=== PATIENT | male | born 1965 | race Caucasian/White ===

== ENCOUNTER → 2017-06-15 09:58 | Outpatient (CLI) | payer OTHER, SELFPAY ==
[2017-06-15 12:04] LABS: Absolute Lymphocyte Count 1.88 X10^3/ul (0.83-4.51); Absolute Neutrophil Count 5.1 X10^3/uL (2.0-7.7); Basophil# 0.02 X10^3/uL; Basophil% 0.3 % (0-1); Color, Urine Yellow (Yellow); Eosinophil# 0.12 X10^3/uL; Eosinophils% 1.5 % (0-5); Glucose, Dipstick Normal (Normal); Hematocrit 37.4 % (40-54); Hemoglobin 12.2 g/dl (13.0-16.5); Ketone-Dipstick Negative (Negative); Leukocyte Esterase-Dipstick 25 /ul (Negative); Lymphocyte # 1.88 X10^3/ul (4.0); Mean Corp Hgb Conc 32.6 g/gl (32-36); Mean Corpuscular Hgb 27.9 pg (27.0-32.0); Mean Corpuscular Volume 85.6 fL (80-94); Mean Platelet Vol. 10.4 fl (6.2-12.0); Monocyte# 0.72 X10^3/uL; Monocyte% 9.2 % (0-10); Neutrophil # 5.08 X10^3/uL (2.7-7.7); Neutrophil % 64.7 % (47-70); Nitrite-Dipstick Negative (Negative); Occult Blood-Urine Negative /ul (Negative); Platelet Count 212 K/mm3 (150-450); Protein-Dipstick 30 mg/dl (Negative); RBC Distribution Width CV 15.4 % (11.6-14.6); RBC Distribution Width SD 47.1 fl (35.1-43.9); Red Blood Count 4.37 M/mm3 (4.6-6.2); Specific Gravity, Urine 1.015 (1.002-1.030); Urine Bilirubin Dipstick Negative (Negative); Urine Clarity Clear (Clear); Urine Urobilinogen Normal (Normal); White Blood Count 7.8 K/mm3 (4.4-11.0)
[2017-06-15 12:08] LABS: POSITIVE COUNT NO; POSITIVE DIFFERENTIAL NO; POSITIVE MORPHOLOGY NO
== END ==
PROVIDERS: Visit Provider Family Medicine
DX: M46.26 Osteomyelitis of vertebra, lumbar region (principal); Z98.890 Other specified postprocedural states; Z98.1 Arthrodesis status
CPT/HCPCS: 36415; 81002; 85025; 86140; 87077; 87086; 87088; 87186

== ENCOUNTER → 2017-06-30 11:02 | Outpatient (CLI) | payer OTHER, SELFPAY ==
[2017-06-30 11:05] LABS: Bacteria 0 SEEN /hpf (None Seen)
[2017-06-30 15:41] LABS: Absolute Lymphocyte Count 1.78 X10^3/ul (0.83-4.51); Basophil# 0.03 X10^3/uL; Basophil% 0.7 % (0-1); Eosinophil# 0.09 X10^3/uL; Hematocrit 37.1 % (40-54); Hemoglobin 12.1 g/dl (13.0-16.5); Lymphocyte # 1.78 X10^3/ul (4.0); Lymphocyte % 38.9 % (19-41); Mean Corp Hgb Conc 32.6 g/gl (32-36); Mean Corpuscular Hgb 28.2 pg (27.0-32.0); Mean Corpuscular Volume 86.5 fL (80-94); Mean Platelet Vol. 10.1 fl (6.2-12.0); Monocyte# 0.62 X10^3/uL; Monocyte% 13.6 % (0-10); Neutrophil # 2.04 X10^3/uL (2.7-7.7); Neutrophil % 44.6 % (47-70); Platelet Count 204 K/mm3 (150-450); RBC Distribution Width CV 15.8 % (11.6-14.6); RBC Distribution Width SD 49.6 fl (35.1-43.9); Red Blood Count 4.29 M/mm3 (4.6-6.2); White Blood Count 4.6 K/mm3 (4.4-11.0)
[2017-06-30 15:43] LABS: Color, Urine Yellow (Yellow); Glucose, Dipstick Normal (Normal); Ketone-Dipstick Negative (Negative); Leukocyte Esterase-Dipstick 25 /ul (Negative); Nitrite-Dipstick Negative (Negative); Occult Blood-Urine Negative /ul (Negative); Protein-Dipstick 15 mg/dl (Negative); Specific Gravity, Urine 1.015 (1.002-1.030); Urine Bilirubin Dipstick Negative (Negative); Urine Clarity Sl. Cloudy (Clear); Urine Urobilinogen Normal (Normal)
[2017-06-30 15:52] LABS: Hyaline Cast 0-5 SEEN /lpf (0-5); Mucous, Urine 2+ /hpf (<or=2+)
[2017-06-30 15:54] LABS: Squamous Epithelial Cells - UA 0-5 SEEN /hpf (0-5)
[2017-06-30 15:55] LABS: Red Blood Cells-Urine 0-5 SEEN /hpf (0-5); White Blood Cells 0-5 SEEN /hpf (0-5)
[2017-06-30 15:59] LABS: POSITIVE COUNT NO; POSITIVE DIFFERENTIAL NO; POSITIVE MORPHOLOGY NO
[2017-06-30 16:22] LABS: Erythrocyte Sedimentation Rate 38 mm/hr (0-20)
== END ==
PROVIDERS: Family Provider Family Medicine; PCP Family Medicine; Visit Provider Family Medicine
DX: M46.26 Osteomyelitis of vertebra, lumbar region (principal); R30.0 Dysuria
CPT/HCPCS: 36415; 81001; 85025; 85652; 86140; 87086

== ENCOUNTER → 2017-08-03 11:00 | Outpatient (CLI) | payer OTHER, SELFPAY ==
[2017-08-03 12:33] LABS: Absolute Lymphocyte Count 2.22 X10^3/ul (0.83-4.51); Absolute Neutrophil Count 4.1 X10^3/uL (2.0-7.7); Basophil# 0.02 X10^3/uL; Basophil% 0.3 % (0-1); Eosinophil# 0.13 X10^3/uL; Eosinophils% 1.8 % (0-5); Hemoglobin 12.2 g/dl (13.0-16.5); Lymphocyte # 2.22 X10^3/ul (4.0); Lymphocyte % 30.3 % (19-41); Mean Corpuscular Hgb 28.6 pg (27.0-32.0); Mean Corpuscular Volume 86.7 fL (80-94); Mean Platelet Vol. 10.2 fl (6.2-12.0); Monocyte# 0.81 X10^3/uL; Monocyte% 11.1 % (0-10); Neutrophil # 4.12 X10^3/uL (2.7-7.7); Neutrophil % 56.1 % (47-70); Platelet Count 225 K/mm3 (150-450); RBC Distribution Width CV 14.5 % (11.6-14.6); RBC Distribution Width SD 45.1 fl (35.1-43.9); Red Blood Count 4.27 M/mm3 (4.6-6.2); White Blood Count 7.3 K/mm3 (4.4-11.0)
[2017-08-03 12:35] LABS: Erythrocyte Sedimentation Rate 34 mm/hr (0-20)
[2017-08-03 12:37] LABS: POSITIVE COUNT NO; POSITIVE DIFFERENTIAL NO; POSITIVE MORPHOLOGY NO
== END ==
PROVIDERS: Family Provider Family Medicine; PCP Family Medicine; Visit Provider Family Medicine
DX: M46.26 Osteomyelitis of vertebra, lumbar region (principal)
CPT/HCPCS: 36415; 85025; 85652; 86140

== ENCOUNTER → 2017-08-03 11:22 | Outpatient (CLI) | payer OTHER, SELFPAY ==
--- NOTE | 2017-08-03 11:29 | US_ITS ---
STUDY: ULTRASOUND BREAST - LEFT REASON FOR EXAM: Male, 52 years old. Palpable lump left breast. Breast swelling. TECHNIQUE: Axial and longitudinal images of the LEFT breast were performed with a high resolution ultrasound transducer. COMPARISON: Comparison is made with prior mammogram done earlier today. FINDINGS: LEFT Breast: The upper inner quadrant of the left breast was examined by ultrasound. There is homogeneous fibroglandular tissue. No solid or cystic mass lesion is seen. US/Breast Limited Unilateral IMPRESSION: Unremarkable sonographic examination. Clinical correlation is recommended. ASSESSMENT CATEGORY: BIRADS Category 1: Negative. A letter regarding these results will be sent to the patient by the facility within 30 days. Electronically Signed: Meño Arrington MD at 8:15 EDT Tel [phone], Service support ,
--- NOTE | 2017-08-03 11:29 | HPBI_ITS ---
MAMMOGRAPHY - BILATERAL DIAGNOSTIC REASON FOR EXAM: Male, 52 years old. One-month history of left breast lump. PERTINENT HISTORY: Non-contributory. TECHNIQUE: Digital bilateral breast héctor (3D mammographic acquisition) in the CC and MLO projections. 2-D mediolateral oblique (MLO) and craniocaudad (CC) views of both breasts were obtained. CAD: Full Field Digital Mammography with Computer Added Detection was performed. COMPARISON: None. Baseline examination. FINDINGS: Breast Composition: The breasts are almost entirely fatty. There are no dominant masses or suspicious calcifications. No other significant abnormalities are identified. HPBI/DIAG MAMM W/CAD, BILAT IMPRESSION: Negative diagnostic mammogram. With the patient's history of a left breast lump, correlation with ultrasound is recommended. ASSESSMENT CATEGORY: BIRADS Category 0: Incomplete. Need additional imaging evaluation. A letter regarding these results will be sent to the patient by the facility within 30 days. Approximately 10% of breast cancers are not detected by mammography. A normal mammogram should not delay biopsy of a clinically suspicious abnormality. Electronically Signed: Meño Arrington MD at 13:29 EDT Tel [phone], Service support ,
== END ==
PROVIDERS: Family Provider Family Medicine; PCP Family Medicine; Visit Provider Family Medicine
DX: N63.20 Unspecified lump in the left breast, unspecified quadrant (principal)
CPT/HCPCS: 76642; 77062; 77063; 77066; G0279

== ENCOUNTER → 2017-08-24 11:28 | Outpatient (CLI) | payer OTHER, SELFPAY ==
[2017-08-24 15:51] LABS: Erythrocyte Sedimentation Rate 29 mm/hr (0-20)
== END ==
PROVIDERS: Family Provider Family Medicine; PCP Family Medicine; Visit Provider Family Medicine
DX: M46.26 Osteomyelitis of vertebra, lumbar region (principal)
CPT/HCPCS: 36415; 85652; 86140

== ENCOUNTER → 2017-10-04 10:20 | Outpatient (CLI) | payer OTHER, SELFPAY ==
[2017-10-04 12:30] LABS: Erythrocyte Sedimentation Rate 34 mm/hr (0-20)
[2017-10-04 12:31] LABS: Absolute Lymphocyte Count 2.03 X10^3/ul (0.83-4.51); Basophil# 0.02 X10^3/uL; Basophil% 0.3 % (0-1); Eosinophil# 0.13 X10^3/uL; Eosinophils% 2.3 % (0-5); Hematocrit 37.3 % (40-54); Hemoglobin 12.2 g/dl (13.0-16.5); Lymphocyte # 2.03 X10^3/ul (4.0); Lymphocyte % 35.4 % (19-41); Mean Corp Hgb Conc 32.7 g/gl (32-36); Mean Corpuscular Hgb 29.2 pg (27.0-32.0); Mean Corpuscular Volume 89.2 fL (80-94); Monocyte# 0.57 X10^3/uL; Monocyte% 9.9 % (0-10); Neutrophil # 2.96 X10^3/uL (2.7-7.7); Neutrophil % 51.6 % (47-70); Platelet Count 193 K/mm3 (150-450); RBC Distribution Width CV 12.8 % (11.6-14.6); RBC Distribution Width SD 41.1 fl (35.1-43.9); Red Blood Count 4.18 M/mm3 (4.6-6.2); White Blood Count 5.7 K/mm3 (4.4-11.0)
[2017-10-04 12:37] LABS: POSITIVE COUNT NO; POSITIVE DIFFERENTIAL NO; POSITIVE MORPHOLOGY NO
== END ==
PROVIDERS: Family Provider Family Medicine; PCP Family Medicine; Visit Provider Family Medicine
DX: M46.26 Osteomyelitis of vertebra, lumbar region (principal)
CPT/HCPCS: 36415; 85025; 85652; 86140

== ENCOUNTER → 2017-11-02 14:04 | Outpatient (CLI) | payer OTHER, SELFPAY ==
[2017-11-02 15:38] LABS: Absolute Lymphocyte Count 2.07 X10^3/ul (0.83-4.51); Absolute Neutrophil Count 3.4 X10^3/uL (2.0-7.7); Basophil# 0.02 X10^3/uL; Basophil% 0.3 % (0-1); Eosinophil# 0.18 X10^3/uL; Eosinophils% 2.8 % (0-5); Hematocrit 38.7 % (40-54); Hemoglobin 13.1 g/dl (13.0-16.5); Lymphocyte # 2.07 X10^3/ul (4.0); Lymphocyte % 32.1 % (19-41); Mean Corp Hgb Conc 33.9 g/gl (32-36); Mean Corpuscular Hgb 30.3 pg (27.0-32.0); Mean Corpuscular Volume 89.6 fL (80-94); Mean Platelet Vol. 10.1 fl (6.2-12.0); Monocyte# 0.71 X10^3/uL; Neutrophil # 3.44 X10^3/uL (2.7-7.7); Neutrophil % 53.5 % (47-70); Platelet Count 199 K/mm3 (150-450); RBC Distribution Width CV 12.8 % (11.6-14.6); RBC Distribution Width SD 41.7 fl (35.1-43.9); Red Blood Count 4.32 M/mm3 (4.6-6.2); White Blood Count 6.4 K/mm3 (4.4-11.0)
[2017-11-02 15:42] LABS: POSITIVE COUNT NO; POSITIVE DIFFERENTIAL NO; POSITIVE MORPHOLOGY NO
[2017-11-02 15:51] LABS: Erythrocyte Sedimentation Rate 33 mm/hr (0-20)
[2017-11-02 15:56] LABS: ALB/GLOB Ratio 0.8 RATIO (0.9-2.4); AST(SGOT) 31 U/L (15-37); Alanine Aminotransfer ALT/SGPT 58 U/L (16-61); Albumin, Serum 3.5 g/dL (3.2-5.0); Alkaline Phosphatase 78 U/L (45-117); Anion Gap 9 (5-15); BUN 20 mg/dL (7-18); BUN/Creat Ratio 18.9 RATIO (10-20); Calcium,Total 8.6 mg/dL (8.5-10.1); Chloride 101 mmol/L (98-107); Creatinine, Serum 1.06 mg/dL (0.70-1.30); EST Glomerular Filtration Rate 79 mL/min (>60); Est Glom Filt Rate - Afr Amer 95 mL/min (>60); Globulin 4.2 g/dL (2.2-4.2); Glucose 216 mg/dL (74-106); Potassium 4.5 mmol/L (3.5-5.1); Protein, Total 7.7 g/dL (6.4-8.2); Sodium Level 137 mmol/L (136-145); T4 Free Direct 0.96 ng/dL (0.76-1.46)
[2017-11-02 15:58] LABS: T3 Total - Triiodothyronine 0.93 ng/mL (0.6-1.81); Vitamin B12 679 pg/mL (211-911); Vitamin D,25 Hydroxy 10.9 ng/mL (29.95-100.01)
[2017-11-03 13:40] LABS: Hemoglobin A1c 7.1 % (4.2-6.3)
== END ==
LOC: LAB.FUTURE 05-05 01:15 → BFHLAB 07-05 13:13
PROVIDERS: Family Provider Family Medicine; PCP Family Medicine; Visit Provider Family Medicine
DX: M46.26 Osteomyelitis of vertebra, lumbar region (principal); R73.09 Other abnormal glucose; R53.83 Other fatigue; E55.9 Vitamin D deficiency, unspecified; E53.8 Deficiency of other specified B group vitamins
CPT/HCPCS: 36415; 80053; 82306; 82607; 83036; 84439; 84443; 84480; 85025; 85652; 86140

== ENCOUNTER → 2017-12-12 15:15 | Outpatient (CLI) | payer OTHER, SELFPAY ==
--- NOTE | 2017-12-12 14:30 | LES_PTH ---
PATIENT: MELISSA ELIAS LOC: [facility] U#:[id number] AGE/SX: 59/M ROOM: RE12/12/[address]: Dr. Wilma Thayer DO : 1965 BED: DIS: SPEC #: [id number] RECD: 12/12/17 17:54 STATUS: MIN MAK #: [id number] SUJEY: 12/12/17 14:[address]: Wilma Thayer DEPT: SURGICAL PATHOLOGY RECD BY: Shay Sapp Tissues: Skin of back, NOS Procedures: Surgery Specimen Level IV HEADER OPERATION: Excision lesion mid upper back PRE-OP DIAGNOSIS: Rule out SCC TISSUE SUBMITTED: Mid upper back MICROSCOPIC DIAGNOSIS Mid upper back lesion, excision: Benign vascular proliferation, consistent with lobular capillary hemangioma (pyogenic granuloma) with superficial ulceration and associated inflammation. Negative for malignancy. KIM:rach 12/14/17 MICROSCOPIC DESCRIPTION Slides are reviewed. GROSS DESCRIPTION Received in fixative is one container labeled with the patient's name and designated mid upper back. The specimen consists of a feliciano-white skin ellipse measuring 2 x 0.7 cm and up to 0.4 cm in thickness. There is a raised nodular lesion on the surface measuring 1 x 1 x 0.3 cm. The specimen is inked, serially sectioned and submitted entirely in one cassette. / SJ:rg 12/13/17 TC:5 [facility]: [id number]
== END ==
PROVIDERS: Family Provider Family Medicine; PCP Family Medicine; Visit Provider Family Medicine
DX: L98.9 Disorder of the skin and subcutaneous tissue, unspecified (principal)
CPT/HCPCS: 88305

== ENCOUNTER → 2017-12-22 20:20 | Outpatient (CLI) | payer OTHER, SELFPAY | PROVIDERS: Family Provider Family Medicine; PCP Family Medicine; Visit Provider Family Medicine | DX: G47.33 Obstructive sleep apnea (adult) (pediatric) (principal) | CPT/HCPCS: 95811 ==

== ENCOUNTER → 2018-03-02 14:07 | Outpatient (CLI) | payer OTHER, SELFPAY ==
[2018-03-02 15:45] LABS: CRP 7.47 mg/L (0.0-3.0)
[2018-03-02 16:21] LABS: Erythrocyte Sedimentation Rate 26 mm/hr (0-20)
== END ==
PROVIDERS: Family Provider Family Medicine; PCP Family Medicine; Visit Provider Family Medicine
DX: M54.16 Radiculopathy, lumbar region (principal); M46.26 Osteomyelitis of vertebra, lumbar region
CPT/HCPCS: 36415; 85652; 86140

== ENCOUNTER → 2018-06-30 09:22 | Outpatient (CLI) | payer OTHER, SELFPAY ==
[2018-06-30 12:18] LABS: Absolute Lymphocyte Count 3.03 X10^3/ul (0.83-4.51); Absolute Neutrophil Count 4.7 X10^3/uL (2.0-7.7); Basophil# 0.03 X10^3/uL; Basophil% 0.3 % (0-1); Eosinophil# 0.16 X10^3/uL; Eosinophils% 1.8 % (0-5); Hemoglobin 12.9 g/dl (13.0-16.5); Lymphocyte # 3.03 X10^3/ul (4.0); Lymphocyte % 34.2 % (19-41); Mean Corp Hgb Conc 32.3 g/gl (32-36); Mean Corpuscular Hgb 29.9 pg (27.0-32.0); Mean Corpuscular Volume 92.6 fL (80-94); Mean Platelet Vol. 10.2 fl (6.2-12.0); Monocyte% 10.1 % (0-10); Neutrophil # 4.69 X10^3/uL (2.7-7.7); Neutrophil % 52.9 % (47-70); Platelet Count 226 K/mm3 (150-450); RBC Distribution Width CV 13.4 % (11.6-14.6); RBC Distribution Width SD 44.1 fl (35.1-43.9); Red Blood Count 4.32 M/mm3 (4.6-6.2); White Blood Count 8.9 K/mm3 (4.4-11.0)
[2018-06-30 12:20] LABS: POSITIVE COUNT NO; POSITIVE DIFFERENTIAL NO; POSITIVE MORPHOLOGY NO
[2018-06-30 12:40] LABS: AST(SGOT) 30 U/L (15-37); Alanine Aminotransfer ALT/SGPT 45 U/L (16-61); Albumin, Serum 3.7 g/dL (3.2-5.0); Alkaline Phosphatase 60 U/L (45-117); Anion Gap 10 (5-15); BUN 27 mg/dL (7-18); BUN/Creat Ratio 23.1 RATIO (10-20); Calcium,Total 8.4 mg/dL (8.5-10.1); Chloride 103 mmol/L (98-107); Cholesterol 227 mg/dL (200); Creatinine, Serum 1.17 mg/dL (0.70-1.30); EST Glomerular Filtration Rate 70 mL/min (>60); Est Glom Filt Rate - Afr Amer 85 mL/min (>60); Globulin 3.7 g/dL (2.2-4.2); Glucose 112 mg/dL (74-106); High Density Lipoprotein 36 mg/dL; PSA,Total - Annual Screen 0.59 ng/mL (0.00-4.00); Potassium 4.2 mmol/L (3.5-5.1); Protein, Total 7.4 g/dL (6.4-8.2); Sodium Level 136 mmol/L (136-145); Triglycerides 334 mg/dL; Very Low Density Lipoprotein 67 mg/dL (5-40)
[2018-06-30 12:52] LABS: Microalbumin:Creatinine Ratio 251.6 mg/g CRE (<30 mg/g CRE)
[2018-06-30 13:00] LABS: Hemoglobin A1c 6.2 % (4.2-6.3)
== END ==
LOC: LAB.FUTURE 04-30 12:15 → BFHLAB 07-05 13:13
PROVIDERS: Family Provider Family Medicine; PCP Family Medicine; Visit Provider Family Medicine
DX: E11.9 Type 2 diabetes mellitus without complications (principal); I10 Essential (primary) hypertension; E55.9 Vitamin D deficiency, unspecified; Z12.5 Encounter for screening for malignant neoplasm of prostate
CPT/HCPCS: 36415; 80053; 80061; 82043; 82306; 82570; 83036; 84153; 85025; G0103

== ENCOUNTER → 2018-10-02 | Outpatient (CLI) | payer OTHER, SELFPAY ==
[2018-10-02 13:10] LABS: Red Blood Cells-Urine 0 SEEN /hpf (0-5)
[2018-10-02 15:31] LABS: Color, Urine Yellow (Yellow); Glucose, Dipstick Normal (Normal); Ketone-Dipstick 5 mg/dl (Negative); Leukocyte Esterase-Dipstick 25 /ul (Negative); Nitrite-Dipstick Negative (Negative); Occult Blood-Urine Negative /ul (Negative); Protein-Dipstick 30 mg/dl (Negative); Specific Gravity, Urine 1.015 (1.002-1.030); Urine Bilirubin Dipstick Negative (Negative); Urine Clarity Clear (Clear); Urine Urobilinogen Normal (Normal)
[2018-10-02 15:42] LABS: Bacteria RARE /hpf (None Seen); Mucous, Urine 1+ /hpf (<or=2+); Squamous Epithelial Cells - UA 0-5 SEEN /hpf (0-5); White Blood Cells 0-5 SEEN /hpf (0-5)
[2018-10-02 15:43] LABS: Absolute Lymphocyte Count 2.75 X10^3/ul (0.83-4.51); Basophil# 0.03 X10^3/uL; Basophil% 0.4 % (0-1); Eosinophil# 0.21 X10^3/uL; Hematocrit 41.1 % (40-54); Hemoglobin 13.5 g/dl (13.0-16.5); Lymphocyte # 2.75 X10^3/ul (4.0); Lymphocyte % 39.9 % (19-41); Mean Corp Hgb Conc 32.8 g/gl (32-36); Mean Corpuscular Volume 88.4 fL (80-94); Mean Platelet Vol. 10.1 fl (6.2-12.0); Neutrophil # 2.98 X10^3/uL (2.7-7.7); Neutrophil % 43.3 % (47-70); POSITIVE COUNT NO; POSITIVE DIFFERENTIAL NO; POSITIVE MORPHOLOGY NO; Platelet Count 220 K/mm3 (150-450); RBC Distribution Width CV 13.3 % (11.6-14.6); RBC Distribution Width SD 42.6 fl (35.1-43.9); Red Blood Count 4.65 M/mm3 (4.6-6.2); White Blood Count 6.9 K/mm3 (4.4-11.0)
[2018-10-02 15:51] LABS: CRP 9.02 mg/L (0.0-3.0)
[2018-10-02 16:26] LABS: Erythrocyte Sedimentation Rate 38 mm/hr (0-20)
[2018-10-02 17:02] LABS: Chlamydia Trachomatis by PCR Negative (Negative); Neisserai gonorrhoeae by PCR Negative (Negative); Probe Check PASS; Sample Adequacy Control PASS; Specimen Processing Control PASS
== END | disposition home or self-care (01) ==
LOC: LAB.FUTURE 13:07
PROVIDERS: Family Provider Family Medicine; PCP Family Medicine; Visit Provider Family Medicine
DX: R30.0 Dysuria (principal); Z20.2 Contact with and (suspected) exposure to infections with a predominantly sexual mode of transmission; R53.83 Other fatigue
CPT/HCPCS: 36415; 81001; 85025; 85652; 86140; 87086; 87088; 87491; 87591

== ENCOUNTER → 2018-12-27 | Outpatient (CLI) | payer OTHER, SELFPAY ==
[2018-12-27 12:24] LABS: Erythrocyte Sedimentation Rate 32 mm/hr (0-20)
[2018-12-27 12:26] LABS: Absolute Lymphocyte Count 2.17 X10^3/uL (0.83-4.51); Absolute Neutrophil Count 2.9 X10^3/uL (2.0-7.7); Basophil# 0.04 X10^3/uL; Basophil% 0.7 % (0-1); Eosinophil# 0.17 X10^3/uL; Eosinophils% 2.8 % (0-5); Hematocrit 39.6 % (40-54); Hemoglobin 13.3 g/dL (13.0-16.5); Lymphocyte # 2.17 X10^3/ul (4.0); Lymphocyte % 36.2 % (19-41); Mean Corp Hgb Conc 33.6 g/dL (32-36); Mean Corpuscular Hgb 30.5 pg (27.0-32.0); Mean Corpuscular Volume 90.8 fL (80-94); Mean Platelet Vol. 10.3 fl (6.2-12.0); Monocyte# 0.66 X10^3/uL; NRBC Flagged by Analyzer 0 % (0-5); Neutrophil # 2.92 X10^3/uL (2.7-7.7); Neutrophil % 48.8 % (47-70); Platelet Count 210 K/mm3 (150-450); RBC Distribution Width CV 12.5 % (11.6-14.6); RBC Distribution Width SD 41.3 fl (35.1-43.9); Red Blood Count 4.36 M/mm3 (4.6-6.2)
[2018-12-27 12:43] LABS: Hemoglobin A1c 6.6 % (4.2-6.3)
[2018-12-27 12:47] LABS: ALB/GLOB Ratio 0.8 RATIO (0.9-2.4); AST(SGOT) 38 U/L (15-37); Alanine Aminotransfer ALT/SGPT 52 U/L (16-61); Albumin, Serum 3.4 g/dL (3.2-5.0); Alkaline Phosphatase 74 U/L (45-117); Anion Gap 8 (5-15); BUN 17 mg/dL (7-18); BUN/Creat Ratio 15.5 RATIO (10-20); Calcium,Total 8.6 mg/dL (8.5-10.1); Chloride 104 mmol/L (98-107); Cholesterol 198 mg/dL (200); EST Glomerular Filtration Rate 75 mL/min (>60); Est Glom Filt Rate - Afr Amer 91 mL/min (>60); Globulin 4.1 g/dL (2.2-4.2); Glucose 150 mg/dL (74-106); High Density Lipoprotein 30 mg/dL; Potassium 4.5 mmol/L (3.5-5.1); Protein, Total 7.5 g/dL (6.4-8.2); Sodium Level 137 mmol/L (136-145); Triglycerides 585 mg/dL
[2018-12-27 12:54] LABS: Microalbumin:Creatinine Ratio 210.8 mg/g CRE (<30 mg/g CRE)
== END | disposition home or self-care (01) ==
LOC: LAB.FUTURE 10:24
PROVIDERS: Family Provider Family Medicine; PCP Family Medicine; Visit Provider Family Medicine
DX: E11.9 Type 2 diabetes mellitus without complications (principal); M46.26 Osteomyelitis of vertebra, lumbar region; Z51.81 Encounter for therapeutic drug level monitoring; R80.9 Proteinuria, unspecified
CPT/HCPCS: 36415; 80053; 80061; 82043; 82570; 83036; 85025; 85652; 86140

== ENCOUNTER → 2019-07-06 09:58 | Outpatient (CLI) | payer OTHER, SELFPAY ==
[2019-07-06 10:00] LABS: Bacteria 0 SEEN /hpf (None Seen); Mucous, Urine 0 SEEN /hpf (<or=2+); Red Blood Cells-Urine 0 SEEN /hpf (0-5)
[2019-07-06 12:59] LABS: Absolute Lymphocyte Count 2.83 X10^3/uL (0.83-4.51); Absolute Neutrophil Count 3.4 X10^3/uL (2.0-7.7); Basophil# 0.05 X10^3/uL; Basophil% 0.7 % (0-1); Eosinophil# 0.18 X10^3/uL; Eosinophils% 2.5 % (0-5); Hematocrit 41.8 % (40-54); Hemoglobin 13.6 g/dL (13.0-16.5); Lymphocyte # 2.83 X10^3/ul (4.0); Lymphocyte % 39.1 % (19-41); Mean Corp Hgb Conc 32.5 g/dL (32-36); Mean Corpuscular Hgb 28.5 pg (27.0-32.0); Mean Corpuscular Volume 87.6 fL (80-94); Mean Platelet Vol. 10.4 fl (6.2-12.0); Monocyte# 0.79 X10^3/uL; Monocyte% 10.9 % (0-10); NRBC Flagged by Analyzer 0 % (0-5); Neutrophil # 3.36 X10^3/uL (2.7-7.7); Neutrophil % 46.5 % (47-70); Platelet Count 222 K/mm3 (150-450); RBC Distribution Width CV 12.6 % (11.6-14.6); RBC Distribution Width SD 40.4 fl (35.1-43.9); Red Blood Count 4.77 M/mm3 (4.6-6.2); White Blood Count 7.2 K/mm3 (4.4-11.0)
[2019-07-06 13:05] LABS: Erythrocyte Sedimentation Rate 55 mm/hr (0-20)
[2019-07-06 13:16] LABS: Color, Urine Yellow (Yellow); Glucose, Dipstick Normal (Normal); Ketone-Dipstick 5 mg/dl (Negative); Leukocyte Esterase-Dipstick Negative /ul (Negative); Nitrite-Dipstick Negative (Negative); Occult Blood-Urine Negative /ul (Negative); Protein-Dipstick 100 mg/dl (Negative); Specific Gravity, Urine 1.015 (1.002-1.030); Urine Bilirubin Dipstick Negative (Negative); Urine Clarity Clear (Clear); Urine Urobilinogen Normal (Normal); Urine pH 6.5 (5.0 - 8.0)
[2019-07-06 13:18] LABS: Amphetamine Urine VISTA NEGATIVE (<1000 ng/mL); Barbiturate Urine VISTA NEGATIVE (< 200 ng/mL); Benzodiazepine Urine VISTA NEGATIVE (< 200 ng/mL); Cocaine Urine VISTA NEGATIVE (< 300 ng/mL); Ecstacy Urine VISTA NEGATIVE (< 500 ng/mL); Methadone Urine VISTA NEGATIVE (< 300 ng/mL); PCP Urine VISTA NEGATIVE (< 25 ng/mL); THC Urine VISTA NEGATIVE (< 50 ng/mL); Vista UDS pH Range 6
[2019-07-06 13:34] LABS: Squamous Epithelial Cells - UA 0-5 SEEN /hpf (0-5); White Blood Cells 0-5 SEEN /hpf (0-5)
[2019-07-06 13:51] LABS: Cholesterol 243 mg/dL (200); High Density Lipoprotein 37 mg/dL; Triglycerides 754 mg/dL
[2019-07-06 14:00] LABS: Hemoglobin A1c 7.1 % (4.2-6.3)
== END ==
LOC: LAB.FUTURE 07-11 10:05 → BFHLAB 10-26 08:48
PROVIDERS: Family Provider Family Medicine; PCP Family Medicine; Visit Provider Family Medicine
DX: E11.9 Type 2 diabetes mellitus without complications (principal); E78.5 Hyperlipidemia, unspecified; M54.16 Radiculopathy, lumbar region; N41.9 Inflammatory disease of prostate, unspecified; M79.10 Myalgia, unspecified site
CPT/HCPCS: 36415; 80061; 80307; 81001; 82570; 83036; 85025; 85652; 86140

== ENCOUNTER → 2019-09-26 13:35 | Outpatient (CLI) | payer OTHER, SELFPAY ==
[2019-09-26 15:17] LABS: Absolute Lymphocyte Count 2.51 X10^3/uL (0.83-4.51); Absolute Neutrophil Count 3.7 X10^3/uL (2.0-7.7); Basophil# 0.04 X10^3/uL; Basophil% 0.6 % (0-1); Color, Urine Yellow (Yellow); Eosinophil# 0.18 X10^3/uL; Eosinophils% 2.5 % (0-5); Glucose, Dipstick 100 mg/dl (Normal); Hematocrit 40.9 % (40-54); Hemoglobin 13.4 g/dL (13.0-16.5); Ketone-Dipstick Negative (Negative); Leukocyte Esterase-Dipstick Negative /ul (Negative); Lymphocyte # 2.51 X10^3/ul (4.0); Lymphocyte % 35.6 % (19-41); Mean Corp Hgb Conc 32.8 g/dL (32-36); Mean Corpuscular Hgb 28.9 pg (27.0-32.0); Mean Corpuscular Volume 88.3 fL (80-94); Mean Platelet Vol. 10.3 fl (6.2-12.0); Monocyte# 0.66 X10^3/uL; Monocyte% 9.3 % (0-10); NRBC Flagged by Analyzer 0 % (0-5); Neutrophil # 3.65 X10^3/uL (2.7-7.7); Neutrophil % 51.7 % (47-70); Nitrite-Dipstick Negative (Negative); Occult Blood-Urine Negative /ul (Negative); Platelet Count 223 K/mm3 (150-450); Protein-Dipstick 100 mg/dl (Negative); RBC Distribution Width SD 41.4 fl (35.1-43.9); Red Blood Count 4.63 M/mm3 (4.6-6.2); Urine Bilirubin Dipstick Negative (Negative); Urine Clarity Clear (Clear); Urine Urobilinogen Normal (Normal); Urine pH 6.5 (5.0 - 8.0); White Blood Count 7.1 K/mm3 (4.4-11.0)
[2019-09-26 15:53] LABS: ALB/GLOB Ratio 0.9 RATIO (0.9-2.4); AST(SGOT) 35 U/L (15-37); Alanine Aminotransfer ALT/SGPT 43 U/L (16-61); Albumin, Serum 3.6 g/dL (3.2-5.0); Alkaline Phosphatase 70 U/L (45-117); Anion Gap 13 (5-15); BUN 17 mg/dL (7-18); BUN/Creat Ratio 15.3 RATIO (10-20); Calcium,Total 9.2 mg/dL (8.5-10.1); Chloride 97 mmol/L (98-107); Creatinine, Serum 1.11 mg/dL (0.70-1.30); EST Glomerular Filtration Rate 74 mL/min (>60); Est Glom Filt Rate - Afr Amer 89 mL/min (>60); Globulin 4.1 g/dL (2.2-4.2); Glucose 285 mg/dL (74-106); Protein, Total 7.7 g/dL (6.4-8.2); Sodium Level 134 mmol/L (136-145)
[2019-09-26 17:43] LABS: Erythrocyte Sedimentation Rate 36 mm/hr (0-20)
== END ==
PROVIDERS: PCP Family Medicine; Visit Provider Family Medicine
DX: R10.9 Unspecified abdominal pain (principal); R30.0 Dysuria; Z86.61 Personal history of infections of the central nervous system
CPT/HCPCS: 36415; 80053; 81002; 85025; 85652; 86140; 87086

== ENCOUNTER → 2019-10-26 13:43 | Outpatient (CLI) | payer OTHER, SELFPAY ==
[2019-10-26 14:35] LABS: Bacteria 0 SEEN /hpf (None Seen); Mucous, Urine 0 SEEN /hpf (<or=2+); Red Blood Cells-Urine 0 SEEN /hpf (0-5); White Blood Cells 0 SEEN /hpf (0-5)
[2019-10-26 15:28] LABS: Erythrocyte Sedimentation Rate 31 mm/hr (0-20)
[2019-10-26 15:42] LABS: CRP 9.14 mg/L (0.0-3.0)
[2019-10-26 17:07] LABS: Color, Urine Yellow (Yellow); Glucose, Dipstick Normal (Normal); Ketone-Dipstick Negative (Negative); Leukocyte Esterase-Dipstick Negative /ul (Negative); Nitrite-Dipstick Negative (Negative); Occult Blood-Urine Negative /ul (Negative); Protein-Dipstick 30 mg/dl (Negative); Urine Bilirubin Dipstick Negative (Negative); Urine Clarity Clear (Clear); Urine Urobilinogen Normal (Normal)
[2019-10-26 18:47] LABS: Squamous Epithelial Cells - UA 0-5 SEEN /hpf (0-5)
== END ==
PROVIDERS: PCP Family Medicine; Visit Provider Family Medicine
DX: M46.26 Osteomyelitis of vertebra, lumbar region (principal); Z98.1 Arthrodesis status; R30.0 Dysuria
CPT/HCPCS: 36415; 81001; 85652; 86140; 87086; 87088

== ENCOUNTER → 2020-01-30 13:58 | Outpatient (CLI) | payer OTHER, SELFPAY ==
--- NOTE | 2020-01-30 14:02 | RAD_ITS ---
STUDY: X-RAY - PELVIS AND RIGHT HIP REASON FOR EXAM: Male, 54 years old. Right hip pain, felt a pop when he moved in his rolling desk chair at work TECHNIQUE: 4 views of the pelvis and hip. COMPARISON: None. FINDINGS: There is a non-specific bowel gas pattern. Normal visualized soft tissue structures. Prior laminectomy and fusion of the lower lumbar spine as well as the sacroiliac joints bilaterally. Normal bilateral iliac wings, sacroiliac joints and visualized sacrum. Normal bilateral superior and inferior pubic rami. Normal pubic symphysis. Normal bilateral ischial tuberosities. Widened of the right femoral head. There is osteoarthritic spur formation of the acetabular rim. is severe articular joint space narrowing of the hip. Femoral acetabular impingement should be ruled out. RAD/Hip uni 4+ views with Pelvis IMPRESSION: Marked degree of osteoarthritis involving the right hip joint. Prior laminectomy fusion of the lower lumbar spine as well as the sacroiliac joints bilaterally. Electronically Signed: Meño Arrington, at 15:08 EDT , Service support ,
== END ==
PROVIDERS: PCP Family Medicine; Referring Provider Family Medicine; Visit Provider Family Medicine
DX: M25.551 Pain in right hip (principal); R10.31 Right lower quadrant pain
CPT/HCPCS: 73503

== ENCOUNTER → 2020-06-20 14:25 | Outpatient (CLI) | payer OTHER, SELFPAY ==
[2020-03-03 11:26] VITALS: BMI 56.8
[2020-06-20 17:44] LABS: Absolute Lymphocyte Count 2.95 X10^3/uL (0.83-4.51); Absolute Neutrophil Count 4.1 X10^3/uL (2.0-7.7); Basophil# 0.06 X10^3/uL; Basophil% 0.7 % (0-1); Eosinophil# 0.18 X10^3/uL; Eosinophils% 2.1 % (0-5); Hematocrit 42.6 % (40-54); Hemoglobin 13.6 g/dL (13.0-16.5); Lymphocyte # 2.95 X10^3/ul (4.0); Lymphocyte % 35.2 % (19-41); Mean Corp Hgb Conc 31.9 g/dL (32-36); Mean Corpuscular Hgb 28.8 pg (27.0-32.0); Mean Corpuscular Volume 90.1 fL (80-94); Mean Platelet Vol. 9.6 fl (6.2-12.0); Monocyte# 1.03 X10^3/uL; Monocyte% 12.3 % (0-10); NRBC Flagged by Analyzer 0 % (0-5); Neutrophil # 4.13 X10^3/uL (2.7-7.7); Neutrophil % 49.2 % (47-70); Platelet Count 269 K/mm3 (150-450); RBC Distribution Width CV 13.1 % (11.6-14.6); RBC Distribution Width SD 42.9 fl (35.1-43.9); Red Blood Count 4.73 M/mm3 (4.6-6.2); White Blood Count 8.4 K/mm3 (4.4-11.0)
[2020-06-20 18:03] LABS: Vitamin B12 577 pg/mL (211-911)
[2020-06-20 18:10] LABS: AST(SGOT) 23 U/L (15-37); Alanine Aminotransfer ALT/SGPT 42 U/L (16-61); Albumin, Serum 3.9 g/dL (3.2-5.0); Alkaline Phosphatase 69 U/L (45-117); Anion Gap 6 (5-15); BUN 28 mg/dL (7-18); BUN/Creat Ratio 23.5 RATIO (10-20); Calcium,Total 8.9 mg/dL (8.5-10.1); Chloride 100 mmol/L (98-107); Creatinine, Serum 1.19 mg/dL (0.70-1.30); EST Glomerular Filtration Rate 68 mL/min (>60); Est Glom Filt Rate - Afr Amer 82 mL/min (>60); Free T3 2.7 pg/mL (2.18-3.98); Globulin 3.9 g/dL (2.2-4.2); Glucose 99 mg/dL (74-106); Iron 97 ug/dL (65-175); Protein, Total 7.8 g/dL (6.4-8.2); Sodium Level 134 mmol/L (136-145); T4 Free Direct 1.23 ng/dL (0.76-1.46); Thyroid Stim Hormone (TSH) 0.94 uIU/mL (0.358-3.74)
[2020-06-20 18:25] LABS: Hemoglobin A1c 5.6 % (3.8-5.6)
== END ==
PROVIDERS: PCP Family Medicine; Visit Provider Family Medicine
DX: E11.9 Type 2 diabetes mellitus without complications (principal); D50.9 Iron deficiency anemia, unspecified; E53.8 Deficiency of other specified B group vitamins; Z51.81 Encounter for therapeutic drug level monitoring; R53.83 Other fatigue
CPT/HCPCS: 36415; 80053; 82607; 83036; 83540; 84439; 84443; 84481; 85025

== ENCOUNTER → 2021-04-08 06:44 | Outpatient (CLI) | payer OTHER, SELFPAY | PROVIDERS: PCP Family Medicine; Referring Provider Family Medicine; Visit Provider Family Medicine | DX: U07.1 COVID-19 (principal) | CPT/HCPCS: 87635; U0005; U0003 ==

== ENCOUNTER 2021-04-10 12:06 | Outpatient (CLI) | payer OTHER, SELFPAY ==
[2021-04-10 12:24] VITALS: BP 134/71; PULSE 80; RESP 18; TEMP 36.7; O2SAT 94; BMI 54.6
[2021-04-10] MEDS: 0.9% Saline Lock 10 ML Syringe IV (12:29)
[2021-04-10 13:01] VITALS: BP 114/58; PULSE 77; RESP 18; TEMP 36.7; O2SAT 93
[2021-04-10 14:04] VITALS: BP 142/72; PULSE 85; RESP 16; TEMP 36.8; O2SAT 92
== END 2021-04-10 14:05 | disposition home or self-care (01) ==
LOC: MS3OUT 12:07 → MS3 12:07
PROVIDERS: PCP Family Medicine; Referring Provider Nurse Practitioner Adult Health; Visit Provider Nurse Practitioner Adult Health
DX: Z23 Encounter for immunization (principal); U07.1 COVID-19
CPT/HCPCS: J7050; M0245; Q0245; A4216

== ENCOUNTER 2021-06-04 15:49 | Outpatient (CLI) | payer OTHER, SELFPAY ==
[2021-06-04 17:58] LABS: Absolute Lymphocyte Count 2.69 X10^3/uL (0.83-4.51); Absolute Neutrophil Count 3.9 X10^3/uL (2.0-7.7); Basophil# 0.04 X10^3/uL; Basophil% 0.5 % (0-1); Eosinophil# 0.17 X10^3/uL; Eosinophils% 2.3 % (0-5); Hematocrit 36.7 % (40-54); Hemoglobin 11.8 g/dL (13.0-16.5); Lymphocyte # 2.69 X10^3/ul (0.83-4.51); Lymphocyte % 36.1 % (19-41); Mean Corp Hgb Conc 32.2 g/dL (32-36); Mean Corpuscular Hgb 27.4 pg (27.0-32.0); Mean Corpuscular Volume 85.3 fL (80-94); Mean Platelet Vol. 9.6 fl (6.2-12.0); Monocyte# 0.65 X10^3/uL; Monocyte% 8.7 % (0-10); NRBC Flagged by Analyzer 0 % (0-5); Neutrophil # 3.89 X10^3/uL (2.7-7.7); Neutrophil % 52.1 % (47-70); Platelet Count 257 K/mm3 (150-450); RBC Distribution Width CV 14.9 % (11.6-14.6); RBC Distribution Width SD 46.5 fl (35.1-43.9); White Blood Count 7.5 K/mm3 (4.4-11.0)
[2021-06-04 18:18] LABS: Vitamin D,25 Hydroxy 45.2 ng/mL
[2021-06-04 18:26] LABS: Hemoglobin A1c 9.5 % (3.8-5.6)
[2021-06-04 18:27] LABS: ALB/GLOB Ratio 0.8 RATIO (0.9-2.4); AST(SGOT) 30 U/L (15-37); Alanine Aminotransfer ALT/SGPT 36 U/L (16-61); Albumin, Serum 3.5 g/dL (3.2-5.0); Alkaline Phosphatase 93 U/L (45-117); Anion Gap 7 (5-15); BUN 17 mg/dL (7-18); Calcium,Total 9.1 mg/dL (8.5-10.1); Chloride 97 mmol/L (98-107); Creatinine, Serum 0.89 mg/dL (0.70-1.30); EST Glomerular Filtration Rate 94 mL/min (>60); Est Glom Filt Rate - Afr Amer 114 mL/min (>60); Free T3 2.7 pg/mL (2.18-3.98); Globulin 4.6 g/dL (2.2-4.2); Glucose 202 mg/dL (74-106); Potassium 3.6 mmol/L (3.5-5.1); Protein, Total 8.1 g/dL (6.4-8.2); Sodium Level 133 mmol/L (136-145); T4 Free Direct 1.17 ng/dL (0.76-1.46); Thyroid Stim Hormone (TSH) 1.29 uIU/mL (0.358-3.74)
[2021-06-05 07:32] LABS: PTHIN 49.3 pg/mL (18.4-80.1)
[2021-06-08 09:54] LABS: Ferritin 161 ng/mL (26-388); Iron 77 ug/dL (65-175)
== END 2021-06-04 23:59 | disposition short-term general hospital (02) ==
LOC: MTLAB 15:51
PROVIDERS: PCP Family Medicine; Referring Provider Family Medicine; Visit Provider Family Medicine
DX: E03.9 Hypothyroidism, unspecified (principal); E11.9 Type 2 diabetes mellitus without complications; D64.9 Anemia, unspecified; E55.9 Vitamin D deficiency, unspecified; E83.51 Hypocalcemia
CPT/HCPCS: 36415; 80053; 82306; 82728; 83036; 83540; 83970; 84439; 84443; 84481; 85025

== ENCOUNTER 2022-11-15 17:56 | Inpatient (IN) | payer OTHER, SELFPAY ==
[2022-11-15] VITALS (11 sets, daily range): BP systolic 81–131; BP diastolic 37–64; PULSE 79–85; RESP 12–26; TEMP 35.6–36.5; O2SAT 92–98; BMI 58.1; BMI 57.4
--- NOTE | 2022-11-15 18:31 | EKG12_ITS ---
Test Reason : DYSRHYTHMIA Blood Pressure : / mmHG Vent. Rate : 082 BPM Atrial Rate : 082 BPM P-R Int : 224 ms QRS Dur : 174 ms QT Int : 418 ms P-R-T Axes : 048 -64 012 degrees QTc Int : 488 ms Sinus rhythm with 1st degree A-V block Left axis deviation Right bundle branch block Abnormal ECG Confirmed by ESTEE BEVERLY, ANGIE ([id number]), dictionary editor DIANE ARIAS ([id number]) on 11/17/2022 11:32:27 AM Referred By: DONOVAN Confirmed By:VEE FONTANEZ MD
[2022-11-15 18:49] LABS: Hematocrit 33.3 % (40-54); Hemoglobin 10.1 g/dL (13.0-16.5); Mean Corp Hgb Conc 30.3 g/dL (32-36); Mean Corpuscular Hgb 26.5 pg (27.0-32.0); Mean Corpuscular Volume 87.4 fL (80-94); Mean Platelet Vol. 9.9 fl (6.2-12.0); Platelet Count 387 K/mm3 (150-450); RBC Distribution Width CV 14.7 % (11.6-14.6); RBC Distribution Width SD 47.4 fl (35.1-43.9); Red Blood Count 3.81 M/mm3 (4.6-6.2)
--- NOTE | 2022-11-15 18:49 | EDS_ITS ---
HPI History of Present Illness Chief Complaint: Cellulitis [facility] Medical History Cellulitis H/o back surgery HTN (hypertension) BATOOL treated with BiPAP Type 2 diabetes mellitus Home Medications B-complex with vitamin C 1 tab PO DAILY 03/03/20 [History Last Taken Unknown] ascorbate calcium (vitamin C) 500 mg tablet 500 mg PO DAILY 03/03/20 [History Last Taken Unknown] calcium carbonate 500 mg calcium (1,250 mg) tablet (Calcium 500) 500 mg PO DAILY 03/03/20 [History Last Taken Unknown] cholecalciferol (vitamin D3) 50 mcg (2,000 unit) capsule 50 mcg PO DAILY 03/03/20 [History Last Taken Unknown] diclofenac sodium 50 mg tablet,delayed release 50 mg PO BID 03/03/20 [History Last Taken Unknown] fluticasone propionate 50 mcg/actuation nasal spray,suspension (Flonase Allergy Relief) 1 spray intranasal DAILY 03/03/20 [History Last Taken Unknown] levocetirizine 5 mg tablet (24HR Allergy Relief) 5 mg PO DAILY 03/03/20 [History Last Taken Unknown] olmesartan 40 mg-hydrochlorothiazide 25 mg tablet 1 ea PO DAILY 03/03/20 [History Last Taken Unknown] oxycodone-acetaminophen 7.5 mg-325 mg tablet 1 ea PO Q4H PRN Pain 03/03/20 [History Last Taken Unknown] propranolol 10 mg tablet 10 mg PO DAILY 03/03/20 [History Last Taken Unknown] tizanidine 4 mg tablet 1 ea PO TID PRN Spasms 03/03/20 [History Last Taken Unknown] zinc 50 mg tablet 50 mg PO DAILY 03/03/20 [History Last Taken Unknown] Allergy/AdvReac Type Severity Reaction Status Date / Time No Known Allergies Allergy Verified 11/15/22 18:01 Family History Mother Hypertension Hypotension Diabetes Arthritis Father Hypertension Hypotension Heart disease Status post double vessel coronary artery bypass angina Arthritis Grandfather Prostate cancer Grandmother Uterine cancer Surgical History H/O sinus surgery Social History household members: other details: parents current occupational status: employed and retired Smoking Status: Former smoker alcohol intake: never substance use type: does not use do you feel safe at home: Yes EXAM Physical Exam Const Vital Signs: 11/15/22 17:57 11/15/22 18:14 11/15/22 20:01 Temperature 97.7 F L 97.3 F L Temperature Source Oral Temporal Pulse Rate 80 79 84 Respiratory Rate 16 26 H 20 H Blood Pressure 95/46 L 101/44 L 111/42 L Blood Pressure Mean 62 63 65 Pulse Ox 94 95 95 Oxygen Delivery Method Room Air Nasal Cannula Oxygen Flow Rate (L/min) 3 MDM MDM MDM Narrative Medical decision making narrative: HISTORY OF PRESENT ILLNESS: 57-year-old male here for bilateral redness some occasional pain in the setting of prior outpatient treatment for cellulitis. States he is unsure of the antibiotic he was on. He notes since then he has been more weak, fatigued. States he had bilateral leg pain and redness. Denies any focal numbness or weakness. Denies any chest pain. He does endorse shortness of breath. Denies any cough. REVIEW OF SYSTEMS: Pertinent positives: Redness Pertinent negatives: Syncope, focal numbness or weakness. PHYSICAL EXAM: Nursing triage notes reviewed, Vital signs reviewed Constitutional: please see mdm HENT: MMM Eyes: Pupils equal round and reactive to light, Extraocular muscles intact Neck: No stridor, no JVD, full neck ROM Lungs: Clear to auscultation, No wheezing or rales. No increased work of breathing, no conversational dyspnea, no accessory muscle use, no nasal flaring. No respiratory distress noted Heart: Regular rate and rhythm, No murmurs, No rubs and No gallops, 2+ distal pulses (radial, femoral, posterior tibial) in all extremities Abdomen: Soft, there is no tenderness, rigidity, rebound or guarding, no obvious peritoneal signs, no palpable pulsatile abdominal masses, no auscultated ab dominal bruit : No CVAT Extremities: No edema Neuro: No focal neurological deficits, cranial nerves II through XII intact, 5/5 strength in all extremities. Intact sensation to light touch in all extremities, 2+ reflexes bilateral patella tendons. Normal gait. No ataxia. Skin: Confluent erythema noted to both lower extremities from proximal to talus up to the gastrocnemius. No crepitus, no bullae MEDICAL DECISION MAKING: Chief Complaint: Leg redness External records reviewed: No recent ED visits or hospitalizations Factors affecting care: Type 2 diabetes, obesity Social determinants of health: none History obtained from others: The patient's Consults: Internal medicine ALL IMAGES (IF OBTAINED) HAVE BEEN PERSONALLY REVIEWED AND INTERPRETED BY MYSELF. CBC with marked leukocytosis suggestive of systemic inflammation, mild anemia, no thrombocytopenia, VBG without significant CO2 retention, no evidence of metabolic acidosis, BMP with hyponatremia, hyperkalemia, no anion gap to suggest endorgan hypoperfusion, there is acute renal failure with a creatinine of 5 Lactate elevated concern for endorgan hypoperfusion Troponin is negative, no evidence of myocardial ischemia BNP within normal limits suggestive of no heart failure MDM Narrative: 57-year-old male here with concern for failed outpatient treatment of cellulitis. He notes bilateral leg redness. Exam with bilateral leg redness but no bullae, crepitus or signs of necrotizing fasciitis. I considered the following differential diagnosis: Bilateral cellulitis, necrotizing fasciitis There is no clinical evidence to suggest necrotizing fasciitis. Patient was noted to be hypoxic requiring 3 L by nasal cannula lungs are clear however. Given this I obtained a broad lab and imaging work-up to further elucidate the etiology patient complaints. Labs with evidence of sepsis with elevated white blood cell count signs of endorgan hypoperfusion, signs of acute renal failure. He was given ideal body weight normal saline bolus of 1500 cc, broad-spectrum antibiotics after blood cultures. Lactate was initially elevated will repeat after fluids. There is no evidence of CO2 retention. His hyperkalemia is treated with IV insulin. Will admit under internal medicine physician for ongoing antibiotic therapy, electrolyte correction and fluids for acute renal failure. The patient and/or family, caregivers express understanding. The patient and/or family, caregivers agrees with the plan. Total critical care time today provided was at least 0 minutes. This excludes separately billable procedures. Critical care time (if documented) is secondary to the patient having high probability of clinically significant/life threatening deterioration in the patient's condition which required my urgent intervention. Shared decision making: I will have a discussion with the patient and or visitors regarding risk/benefits of further testing or admission. They will be made aware of of the risk/benefits inherent in this decision they will be given the opportunity to voice understanding. Lab Data Labs: Laboratory Results - last 24 hr 11/15/22 11/15/22 18:35 20:04 WBC 21.0 H RBC 3.81 L Hgb 10.1 L Hct 33.3 L MCV 87.4 MCH 26.5 L MCHC 30.3 L RDW Std Deviation 47.4 H RDW Coeff of Mary 14.7 H Plt Count 387 MPV 9.9 Sodium 126 L Potassium 6.6 H* Chloride 93 L Carbon Dioxide 23.0 Anion Gap 10 BUN 112 H* Creatinine 5.08 H Estim Creat Clear Calc 15.36 Est GFR (MDRD) Af Amer 15 L Est GFR (MDRD) Non-Af 13 L BUN/Creatinine Ratio 22.0 H Glucose 240 H Lactic Acid 2.4 H* Calcium 9.8 Troponin I High Sens 7 B-Natriuretic Peptide 3.9 POC Glucose 215 H ABG Data ABG results: ABG 11/15/22 19:09 Specimen Type MARY ELLEN VBG pH 7.37 VBG pO2 113 H VBG HCO3 24 VBG Total CO2 25 VBG O2 Sat (Calc) 98 H VBG Base Excess -2 L POC Mix VBG pCO2 Pt Tmp 41.0 O2 Delivery Device Cannula Liter Flow 3.0 Radiography Diagnostic Testing: Clinical Impression(s) from Imaging Studies Chest X-Ray 11/15/22 19:00 IMPRESSION: Lower lobe atelectasis. Electronically Signed: Art Jackson MD at 19:16 EDT Reading Location ID and State: [facility] / [place] , Service support , Discharge Plan Dx/Rx/DC Orders Clinical Impression: Acute renal failure, Bilateral cellulitis of lower leg, Hypoxia, Acute hyperkalemia Disposition Disposition: Acute Care Hospital [facility] Discharge Date/Time: 11/15/22 21:17
[2022-11-15] MEDS: Ketorolac 15 MG/ML Vial IV (18:58)
--- NOTE | 2022-11-15 19:00 | RAD_ITS ---
EXAM: XR CHEST, 1 VIEW CLINICAL INDICATION: SOB TECHNIQUE: Frontal view of the chest. COMPARISON: No relevant prior studies available. FINDINGS: LUNGS AND PLEURAL SPACES: Lower lobe atelectasis. No pneumothorax. No effusion. HEART: Enlarged heart. MEDIASTINUM: Central airways and mediastinal contour are unremarkable. BONES/JOINTS: Lumbar spinal fixation hardware. SOFT TISSUES: Unremarkable. RAD/Chest 1 View (Portable) IMPRESSION: Lower lobe atelectasis. Electronically Signed: Art Jackson MD at 19:16 EDT ,
[2022-11-15 19:10] LABS: BNP,B-Type NATRIURETIC PEPTIDE 3.9 pg/mL (0-100)
[2022-11-15 19:12] LABS: Blood Gas Specimen Type VEN; O2 Delivery Device Cannula; VBG BASE EXCESS -2 mmol/L (-1.0-3.5); VBG Bicarbonate 24 mmol/L (22-26); VBG PO2 113 mmHg (25-40); VBG SO2 98 % (50-70); VBG TCO2 25 mmol/L (23-33); VBG pH 7.37 (7.32-7.42)
[2022-11-15 19:18] LABS: Anion Gap 10 (5-15); BUN 112 mg/dL (7-18); Calcium,Total 9.8 mg/dL (8.5-10.1); Chloride 93 mmol/L (98-107); Creatinine, Serum 5.08 mg/dL (0.70-1.30); EST Glomerular Filtration Rate 13 mL/min (>60); Est Glom Filt Rate - Afr Amer 15 mL/min (>60); Estimated Creatinine Clearance 15.36 ml/min; Glucose 240 mg/dL (74-106); Potassium 6.6 mmol/L (3.5-5.1); Sodium Level 126 mmol/L (136-145); Troponin-I HS (w/2H Reflex) 7 pg/mL (3.0-78.0)
[2022-11-15 19:32] LABS: Lactic Acid 2.4 mmol/L (0.4-1.9)
[2022-11-15 20:24] LABS: Bedside Glucose 215 mg/dL (74-106)
--- NOTE | 2022-11-15 20:25 | PCM.HP.STD ---
[facility] - General General Date of Admission: 11/15/22 Date of Service: 11/15/22 Chief Complaint: Bilateral lower extremity redness HPI Narrative MELISSA ELIAS, is a 57 M with a significant history diabetes mellitus and hypertension who presents emergency department with swelling and erythema of bilateral legs. Of note patient reports that chronically he has had erythema and swelling of both legs but it did seem to be clearing up. He reported he has chronic lower back pain. Of note patient had a hip surgery and back surgery in 2020. He reported that because of his chronic back pain he has difficulty standing; walking and uses a wheelchair. Subsequently he fell 10 days ago after which she developed redness swelling and leakage from bilateral legs. He denies increased warmth in the bilateral legs. Indeed he reports that his legs have felt cold. He reports chronic numbness in his bilateral legs. His mother has been helping him to dress his bilateral legs. He denies any fever. He reports chills. He reports anorexia. He reports fatigue. He reports weakness from his waist down. Of note patient completed a course of antibiotics. Reportedly his symptoms was getting better but then it began to get worse again. At the emergency department patient was found to have DIVINA, lactic acidosis, and hyperkalemia. [facility] Medical History Cellulitis H/o back surgery HTN (hypertension) BATOOL treated with BiPAP Type 2 diabetes mellitus Home Medications B-complex with vitamin C 1 tab PO DAILY 03/03/20 [History Last Taken Unknown] ascorbate calcium (vitamin C) 500 mg tablet 500 mg PO DAILY 03/03/20 [History Last Taken Unknown] calcium carbonate 500 mg calcium (1,250 mg) tablet (Calcium 500) 500 mg PO DAILY 03/03/20 [History Last Taken Unknown] cholecalciferol (vitamin D3) 50 mcg (2,000 unit) capsule 50 mcg PO DAILY 03/03/20 [History Last Taken Unknown] diclofenac sodium 50 mg tablet,delayed release 50 mg PO BID 03/03/20 [History Last Taken Unknown] fluticasone propionate 50 mcg/actuation nasal spray,suspension (Flonase Allergy Relief) 1 spray intranasal DAILY 03/03/20 [History Last Taken Unknown] levocetirizine 5 mg tablet (24HR Allergy Relief) 5 mg PO DAILY 03/03/20 [History Last Taken Unknown] olmesartan 40 mg-hydrochlorothiazide 25 mg tablet 1 ea PO DAILY 03/03/20 [History Last Taken Unknown] oxycodone-acetaminophen 7.5 mg-325 mg tablet 1 ea PO Q4H PRN Pain 03/03/20 [History Last Taken Unknown] propranolol 10 mg tablet 10 mg PO DAILY 03/03/20 [History Last Taken Unknown] tizanidine 4 mg tablet 1 ea PO TID PRN Spasms 03/03/20 [History Last Taken Unknown] zinc 50 mg tablet 50 mg PO DAILY 03/03/20 [History Last Taken Unknown] Allergy/AdvReac Type Severity Reaction Status Date / Time No Known Allergies Allergy Verified 11/15/22 18:01 Family History Mother Hypertension Hypotension Diabetes Arthritis Father Hypertension Hypotension Heart disease Status post double vessel coronary artery bypass angina Arthritis Grandfather Prostate cancer Grandmother Uterine cancer Surgical History H/O sinus surgery Social History household members: other details: parents current occupational status: employed and retired Smoking Status: Former smoker alcohol intake: never substance use type: does not use do you feel safe at home: Yes ROS ROS Narrative Pertinent positives and pertinent negatives as noted in HPI. All other systems were reviewed and are negative Vital Signs Vital Signs Vital Signs: 11/15/22 17:57 11/15/22 18:14 Temperature 97.7 F L Temperature Source Oral Pulse Rate 80 79 Respiratory Rate 16 26 H Blood Pressure 95/46 L 101/44 L Blood Pressure Mean 62 63 Pulse Ox 94 95 Oxygen Delivery Method Room Air Nasal Cannula Oxygen Flow Rate (L/min) 3 Weight Weight: 168.3 kg Body Mass Index (BMI) 58.1 Physical Exam Narrative Physical exam: General: Well-nourished, well-developed. Head: Normocephalic, atraumatic, no tenderness Eyes: Vision is grossly intact. EOMI ENT, no trauma, dry mucous membranes, no rhinorrhea Neck: Nontender, No thyromegaly. CVS: Regular rate and rhythm. S1-S2 present. No murmur, gallop or rub. Respiratory : clear to auscultation bilaterally, chest wall nontender Abdomen: Soft, nontender, nondistended, normal bowel sounds, no masses : Deferred Back: Nontender, no CVA tenderness, no midline spinal tenderness, deformities, step-offs Extremities: Unable to raise bilateral legs. Skin: Erythematous bilateral legs, swelling and seepage. Neuro: Alert, oriented, cranial nerves II through XII grossly intact. Psychiatry: Normal mood. Normal affect. Not depressed. Not anxious. Results Lab / Micro Data 11/15/22 18:35 11/15/22 18:35 Labs: Laboratory Results - last 24 hr 11/15/22 18:35: WBC 21.0 H, RBC 3.81 L, Hgb 10.1 L, Hct 33.3 L, MCV 87.4, MCH 26.5 L, MCHC 30.3 L, RDW Std Deviation 47.4 H, RDW Coeff of Mary 14.7 H, Plt Count 387, MPV 9.9, Sodium 126 L, Potassium 6.6 H*, Chloride 93 L, Carbon Dioxide 23.0, Anion Gap 10, BUN 112 H*, Creatinine 5.08 H, Estim Creat Clear Calc 15.36, Est GFR (MDRD) Af Amer 15 L, Est GFR (MDRD) Non-Af 13 L, BUN/Creatinine Ratio 22.0 H, Glucose 240 H, Lactic Acid 2.4 H*, Calcium 9.8, Troponin I High Sens 7, B-Natriuretic Peptide 3.9 11/15/22 20:04: POC Glucose 215 H ABG Data ABG results: ABG 11/15/22 19:09 Specimen Type MARY ELLEN VBG pH 7.37 VBG pO2 113 H VBG HCO3 24 VBG Total CO2 25 VBG O2 Sat (Calc) 98 H VBG Base Excess -2 L POC Mix VBG pCO2 Pt Tmp 41.0 O2 Delivery Device Cannula Liter Flow 3.0 Radiology Impression Chest X-Ray 11/15/22 19:00 IMPRESSION: Lower lobe atelectasis. Electronically Signed: Art Jackson MD at 19:16 EDT , Assessment & Plan Assessment/Plan (1) Severe sepsis: (2) Acute hyperkalemia: (3) Acute renal failure: QUALIFIERS: Acute renal failure type: unspecified Qualified Code(s): N17.9 - Acute kidney failure, unspecified (4) BMI greater than 40: (5) Type 2 diabetes mellitus: QUALIFIERS: Diabetes mellitus complication detail: with polyneuropathy Diabetes mellitus complication status: with neurologic complications Diabetes mellitus residential insulin use: without residential use Qualified Code(s): E11.42 - Type 2 diabetes mellitus with diabetic polyneuropathy PLAN: Plan Sepsis secondary to DIVINA The patient presented with sepsis due to (bilateral ) with acute sepsis related organ dysfunction as evidenced by DIVINA and lactic acidosis). SIRS criteria: Respiratory rate more than 20 (26 in patient's case) WBC more than 12,000 (21,000 patient case) Bilateral leg with erythema and swelling. Of note on coming to have bilateral leg cellulitis patient does not have tenderness. However with other markers of leukocytosis we will diagnose as severe sepsis secondary to cellulitis and treat. organ dysfunction: Creatinine more than 2 (5.08 in patient's case). His creatinine on 06/04/2021 was 0.89. BUN on presentation was 112. BUN on 06/04/2021 was 17 Trend CMP. Lactate more than 2 mmol/L; trend Vancomycin and Zosyn in the emergency department. With patient's DIVINA will change antibiotics to linezolid and cefazolin. With lactic acidosis per Hospital protocol will admit patient to intensive care unit. [employer] consult. Fluid restriction bolus is not indicated since patient is not hypotensive lactic acid is normal on 4 Acute hyperkalemia Potassium 6.7 presentation. Potassium on 06/04/2021 was 3.6. Received IV fluids, and glucose in the emergency department. Will admit to intensive care unit. IV fluids as above. Kayexalate and MiraLAX ordered. Albuterol 10 mg inhalation ordered. Repeat potassium and CMP. Diabetes mellitus with polyneuropathy Patient with hyperglycemia on presentation Monitor Accu-Cheks Correction scale insulin ordered. Bilateral leg weakness PT and OT to work with patient. Case management consult. Morbid Obesity: BMI: 58.1 kg/m?. Complicates care. Lifestyle modification recommended. DVT prophylaxis Subcutaneous heparin ordered. Sepsis Attestation Sepsis Alert: Yes Sepsis Attestation: Agree w/Sepsis Date exam was performed: 11/15/22 Time exam was performed: 20:45 Possible Source of Sepsis: Skin/soft tissue Sepsis Organ Dysfunction Criteria Present: Creatinine > 2.0 mg/dL and Lactic Acid > 2 mmol/L Charges/Coding Visit Charges Inpatient E&M: 26303 Init Hosp L3
[2022-11-15 20:41] LABS: Reflex Troponin-HS? (from REC) Y
[2022-11-15] MEDS: Albuterol 2.5 MG/3 ML VIAL.NEB. 10 MG INHALATION (22:25)
[2022-11-15 22:41] LABS: Reflex Lactate? Y
[2022-11-15 22:47] LABS: Bedside Glucose 155 mg/dL (74-106)
[2022-11-15 23:03] LABS: Troponin-I HS 6 pg/mL (3.0-78.0)
[2022-11-15] MEDS: 0.9% Normal Saline 1,000 ML 100 ML IV (23:37)
[2022-11-15] MEDS: Heparin Injection (Vial) 5,000 UNIT/ML VIAL 5000 UNIT SC (23:39)
[2022-11-15] MEDS: Cefazolin 2 GM in 0.9% Normal Saline 100 ML IV (23:54)
[2022-11-16] VITALS (30 sets, daily range): BP systolic 93–144; BP diastolic 36–73; PULSE 76–101; RESP 12–22; TEMP 35.6–37.6; O2SAT 86–100; BMI 57.4
[2022-11-16] MEDS: Insulin Lispro 100 UNIT/ML INSULN.PEN SC (00:11)
[2022-11-16] MEDS: Polyethylene Glycol 3350 17 GM PACKET PO (00:12)
[2022-11-16] MEDS: Acetaminophen 325 MG Tablet 650 MG PO ×3 (00:12→20:06)
[2022-11-16] MEDS: Sodium Polystyrene Sulfonate 15 GM/60 ML UDC 30 GM PO ×2 (00:13→11:33)
[2022-11-16 02:08] LABS: M R Staph aureus DNA By PCR Negative (Negative); Probe Check PASS; Specimen Processing Control PASS
[2022-11-16 05:07] LABS: Absolute Neutrophil Count 15.2 X10^3/uL (2.0-7.7); Basophil# 0.01 X10^3/uL; Basophil% 0.1 % (0-1); Eosinophil# 0.01 X10^3/uL; Eosinophils% 0.1 % (0-5); Hemoglobin 9.4 g/dL (13.0-16.5); Lymphocyte % 4.7 % (19-41); Mean Corp Hgb Conc 31.3 g/dL (32-36); Mean Corpuscular Hgb 26.8 pg (27.0-32.0); Mean Corpuscular Volume 85.5 fL (80-94); Mean Platelet Vol. 9.7 fl (6.2-12.0); Monocyte% 5.9 % (0-10); NRBC Flagged by Analyzer 0 % (0-5); Neutrophil # 15.15 X10^3/uL (2.7-7.7); Neutrophil % 88.7 % (47-70); Platelet Count 331 K/mm3 (150-450); RBC Distribution Width CV 14.6 % (11.6-14.6); RBC Distribution Width SD 45.5 fl (35.1-43.9); Red Blood Count 3.51 M/mm3 (4.6-6.2); White Blood Count 17.1 K/mm3 (4.4-11.0)
[2022-11-16] MEDS: Heparin Injection (Vial) 5,000 UNIT/ML VIAL 5000 UNIT SC ×3 (05:22→20:06)
[2022-11-16] MEDS: Cefazolin 2 GM in 0.9% Normal Saline 100 ML IV (05:22)
[2022-11-16 05:37] LABS: ALB/GLOB Ratio 0.6 RATIO (0.9-2.4); AST(SGOT) 39 U/L (15-37); Alanine Aminotransfer ALT/SGPT 32 U/L (16-61); Albumin, Serum 2.3 g/dL (3.2-5.0); Alkaline Phosphatase 65 U/L (45-117); Anion Gap 6 (5-15); BUN 111 mg/dL (7-18); BUN/Creat Ratio 26.6 RATIO (10-20); Chloride 98 mmol/L (98-107); Creatinine, Serum 4.17 mg/dL (0.70-1.30); EST Glomerular Filtration Rate 16 mL/min (>60); Est Glom Filt Rate - Afr Amer 19 mL/min (>60); Estimated Creatinine Clearance 18.71 ml/min; Globulin 3.7 g/dL (2.2-4.2); Glucose 127 mg/dL (74-106); Potassium 6.7 mmol/L (3.5-5.1); Sodium Level 130 mmol/L (136-145)
--- NOTE | 2022-11-16 07:49 | PN.HOSP_ITS ---
Reason for Visit Reason for Visit: Bilateral lower extremity redness Subjective Subjective Mr. Zuleta is a 57-year-old white male who presents emergency department [facility] on 11/15/2022 with worsening bilateral lower extremity redness and edema. He has chronic erythema and swelling in his both of his legs but he felt that the swelling and erythema was worsening. He fell 10 days ago after which she developed worsening swelling in his legs and leakage from bilateral legs. At home his mother had been helping him dress his legs. He den ied any fever but did complain of chills and anorexia along with fatigue and generalized weakness. He had been on outpatient course of antibiotics and felt that he was improving for a brief period of time but then progressively got worse again. Vital signs on presentation showed a temperature of 97.7, heart rate 80, blood pressure initially was 95/46, respiratory rate was 16-26 and oxygen saturations were 94% on room air. CBC demonstrated a white count of 21,000 with a left shift. His chemistry was markedly abnormal with hyponatremia, hyperkalemia with potassium of 6.6, normal serum bicarb and anion gap however I do suspect his serum bicarb is low for him based on his body habitus and high suspicion for chronic CO2 retention. BUN was 112 and serum creatinine was 5.08. His baseline serum creatinine is between 0.9 and 1.2. His initial lactate was 2.4. His cardiac enzymes were cycled and found to be negative. His BNP was 3.9. MRSA PCR was negative. He was admitted to the ICU and started on broad-spectrum antibiotics after cultures were obtained. Culture results are currently pending and his white count is trending down. Patient states he is overall feeling better this morning. Renal function is improving. No specific issues overnight. Urine output is good. Objective Data Objective Data Vital Signs: Vital Signs Temp Pulse Resp BP Pulse Ox O2 Del Method O2 Flow Rate 97.0 F L 86 16 99/47 L 100 Bi-pap 3 11/16/22 07:00 11/16/22 07:07 11/16/22 07:07 11/16/22 07:00 11/16/22 07:07 11/16/22 07:07 11/16/22 05:00 FiO2 35 11/16/22 07:07 Oxygen Flow Rate (L/min) 3 Oxygen Delivery Method Bi-pap Weight: 166.1 kg Body Mass Index (BMI) 57.4 Intake & Output: Intake and Output for Last 24 Hours 11/14/22 11/15/22 11/16/22 23:59 23:59 23:59 Intake Total 1140 / 1240 370 / 370 Output Total 1800 / 1800 2200 / 2200 Balance -660 / -560 -1830 / -1830 Lab / Micro Data 11/16/22 03:14 11/16/22 03:14 Labs: Laboratory Results - last 24 hr 11/15/22 18:35: WBC 21.0 H, RBC 3.81 L, Hgb 10.1 L, Hct 33.3 L, MCV 87.4, MCH 26.5 L, MCHC 30.3 L, RDW Std Deviation 47.4 H, RDW Coeff of Mary 14.7 H, Plt Count 387, MPV 9.9, Sodium 126 L, Potassium 6.6 H*, Chloride 93 L, Carbon Dioxide 23.0, Anion Gap 10, BUN 112 H*, Creatinine 5.08 H, Estim Creat Clear Leroy c 15.36, Est GFR (MDRD) Af Amer 15 L, Est GFR (MDRD) Non-Af 13 L, BUN/Creatinine Ratio 22.0 H, Glucose 240 H, Lactic Acid 2.4 H*, Calcium 9.8, Troponin I High Sens 7, B-Natriuretic Peptide 3.9 11/15/22 20:04: POC Glucose 215 H 11/15/22 22:27: POC Glucose 155 H 11/15/22 22:30: Troponin I High Sens 6, MRSA (PCR) Negative 11/15/22 23:30: Lactic Acid 2.0 11/16/22 03:14: WBC 17.1 H, RBC 3.51 L, Hgb 9.4 L, Hct 30.0 L, MCV 85.5, MCH 26.8 L, MCHC 31.3 L, RDW Std Deviation 45.5 H, RDW Coeff of Mary 14.6, Plt Count 331, MPV 9.7, Immature Gran % (Auto) 0.500, Neut % (Auto) 88.7 H, Lymph % (Auto) 4.7 L, Ray % (Auto) 5.9, Eos % (Auto) 0.1, Baso % (Auto) 0.1, Absolute Neuts (auto) 15.2 H, Absolute Lymphs (auto) 0.80 L, Nucleated RBC % 0, Sodium 130 L, Potassium 6.7 H*, Chloride 98, Carbon Dioxide 26.0, Anion Gap 6, BUN 111 H*, Creatinine 4.17 H, Estim Creat Clear Calc 18.71, Est GFR (MDRD) Af Amer 19 L, Est GFR (MDRD) Non-Af 16 L, BUN/Creatinine Ratio 26.6 H, Glucose 127 H, Calcium 9.0, Total Bilirubin 0.40, AST 39 H, ALT 32, Alkaline Phosphatase 65, Total Protein 6.0 L, Albumin 2.3 L, Globulin 3.7, Albumin/Globulin Ratio 0.6 L ABG Data ABG results: ABG 11/15/22 19:09 Specimen Type MARY ELLEN VBG pH 7.37 VBG pO2 113 H VBG HCO3 24 VBG Total CO2 25 VBG O2 Sat (Calc) 98 H VBG Base Excess -2 L POC Mix VBG pCO2 Pt Tmp 41.0 O2 Delivery Device Cannula Liter Flow 3.0 Radiography Diagnostic Testing: Radiology Impression Chest X-Ray 11/15/22 19:00 IMPRESSION: Lower lobe atelectasis. Electronically Signed: Art Jackson MD at 19:16 EDT Reading Location ID and State: [facility] / [place] , Service support , Physical Exam Const alert, oriented x3, no apparent distress and well nourished; Negative for average body habitus Constitutional Narrative: Super morbidly obese white male, sitting up in bed, nursing at bedside, patient appears comfortable and nontoxic, currently on room air HEENT head/scalp atraumatic and moist oral mucous membranes HEENT Narrative: Mallampati 4, no thrush Head and Scalp: normocephalic Resp normal respiratory effort, no retractions, no use of accessory muscles and clear to auscultation bilaterally Auscultation: Negative for rales, rhonchi or wheezes Cardio regular rate, regular rhythm, S1 normal heart sound, S2 normal heart sound, no murmurs, no rub, no gallops and no clicks Cardio Narrative: Large protuberant abdomen GI normal to inspection, nondistended, normoactive bowel sounds, soft to palpation and non-tender Extremity Extremity Narrative: Bilateral lower extremities with significant edema and erythema, no cyanosis or clubbing Skin Skin Narrative: Lower extremities as noted above, has areas of open small wounds and blistering, also patchy erythematous areas consistent with cellulitis Neuro oriented x3 and moves all extremities Neuro Narrative: Patient with significant bilateral lower extremity weakness related to chronic low back issues and chronic nonambulation, no focal deficits that are new Speech: speech normal Psych affect normal Psych Narrative: Very pleasant, appropriate Assessment & Plan Assessment/Plan (1) Sepsis: (2) Acute hyperkalemia: (3) Acute renal failure: QUALIFIERS: Acute renal failure type: unspecified Qualified Code(s): N17.9 - Acute kidney failure, unspecified (4) Hypoxia: (5) Lower extremity cellulitis: (6) Leukocytosis: (7) Anemia: (8) Lactic acidosis: PLAN: Plan Sepsis secondary to lower extremity cellulitis -Patient with leukocytosis, DIVINA, lactic acidosis, relative hypotension -Patient does not meet criteria for shock as he did not have persistent signs of endorgan damage despite fluids or persistent lactate/lactate greater than 4 -Blood cultures already growing out Enterococcus faecalis -Await sensitivities -Check procalcitonin -MRSA PCR is negative -UA was unremarkable -Chest x-ray was only suggestive of bilateral lower lobe atelectasis -White count is trending down from 21,000 on admission -Continue broad-spectrum antibiotics but will transition from Ancef and linezolid to Zosyn and vancomycin so we have pseudomonal coverage and bacteriocidal staph coverage -Renally dosed DIVINA -Her renal function is proving with hydration -Continue IV fluids -We will give 1 L bolus -Avoid nephrotoxins as able -Avoid NSAIDs--> patient did receive 1 dose of Toradol 50 mg in the emergency department prior to admission -Continue to trend -No current needs for PAPER SORTER AND COUNTER -We will hold on nephrology consultation since renal function is improving Hyperkalemia -Potassium is 6.7 -Patient was given 1 dose of Kayexalate -Repeat Kayexalate dosing today -Should improve slowly as renal function improves -Patient is on any potassium supplementation Lactic acidosis -Resolved Hypoxia -Probably related to sepsis -Checks x-ray is overall unremarkable -Patient was requiring 3 L nasal cannula but was placed on BiPAP overnight. I suspect he utilizes BiPAP chronically -Sats are stable -Wean oxygen as able DM-2 -Med reconciliation has not been updated -Continue SSI -Accu-Cheks as ordered -Cardiac/carb controlled diet Hypertension -Hold antihypertensives currently as patient is relatively hypotensive -We will need medical reconciliation completed and will restart home medications as able and required Osteoarthritis -As needed Tylenol available BATOOL -Continue nocturnal CPAP Morbid obesity -BMI 57.4 -Complicates treatment, prognosis, outcomes -Recommend weight loss DVT prophylaxis -Continue subcu heparin 5000 units 3 times daily CODE STATUS Full code Charges/Coding Visit Charges Inpatient E&M: 00784 Subs Hosp L2
--- NOTE | 2022-11-16 07:56 | EX.PCM.CONCC ---
Assessment & Plan Assessment/Plan (1) Septic shock due to Gram positive bacteria: PLAN: Plan 1. Septic shock, blood cultures already growing 2 out of 2 sets of gram-positive cocci, with multiple possible likely sources: Bilateral lower extremity cellulitis, left great toe ulcer, picked skin lesions. Septic shock is supported by hypotension, leukocytosis of 20,000, renal and hepatic insufficiency on presentation, responded to fluid resuscitation in the squad, presented normotensive to the ER. - treated initially with antibiotics and fluid in the ER with initial beneficial response on morning labs. Lactate is normalized. - Vanco and Zosyn continuing. He reportedly takes chronic prednisone, and oxycodone. -Pharmacy dosing of vancomycin with trough levels to be followed. -ID consult, spoke with Dr. Hugo Stanley, nonurgent. - Left foot x-ray to check for osteomyelitis in the left great toe -Due to the the presence of both right hip and lower spine hardware, he may need an MRI of back, hip, and foot to rule out osteo in these areas. -Podiatry consult for debridement of left great toe and wound care -Local wound care -Surveillance cultures in the a.m., continue daily to every other day cultures until blood is cleared. 2. Acute renal insufficiency, severe hyperkalemia, likely due to #1 -Supportive care -Renal Vanco dosing 3. History of BATOOL on BiPAP at 16/10, rate of 12, 35% FiO2 nightly and as needed naps without chronic CO2 retention, likely due to morbid obesity. Continue current settings. -Avoid fluid overload -Low-salt diet -Limit calories to 1500/day. - Patient counseled on weight loss 4. Chest x-ray shows bibasilar atelectasis but SPO2 is 100% on 35% FiO2 currently. 4. Hypertension (not problematic at this time), with normal troponin and BNP. -Cautiously restart antihypertensive medications when clinically indicated 5. Type 2 diabetes -Reasonable glucose control, management per primary team. 6. Abnormal liver function test (AST), likely due to #1 -Repeat CMP in a.m. 7. Smoker, on Ventolin. 8. History of spinal fusion from L3-S1 and right hip arthroplasty, with artificial hardware per patient. 9. Morbid obesity with BMI 57.4, presents complications to care, movement, skin care, and affects all the problems above. 10. Caution for avoiding bilateral ulnar radiculopathy due to massive obesity when laying supine in bed. He is already complained of pain when laying flat, it is noted that patient spends most of his time upright in a wheelchair or recliner, and sleeps in a recliner most of the time. 11. ICU prophylaxis - Routine skin and wound care - Daily pantoprazole - Routine DVT prophylaxis - Chlorhexidine body washes daily. HPI Consult Data Date of Consult: 11/16/22 HPI Narrative Reason for Consultation: Critical care support in a patient with septic shock and cellulitis HPI Narrative: MELISSA ELIAS, is a 57 M with a history of chronic back pain status post 3 back surgeries including L3-S1 spinal fusion 2016 and 2020, on chronic prednisone, right hip dislocation with total hip arthroplasty in 2020 from osteoarthritis, chronic cellulitis for 2 years living at home with his parents, who fell 10 days ago and had increased erythema pain and weeping of his bilateral lower extremities for 5 days. He also has a deep left toe ulcer which is uncared for and infected grossly. The cellulitis did not respond to outpatient local care and his family called with patient having increasing infection and needing transportation for more care. He was noted to be a 7 person lift. EMS noted a blood pressure of 86/38, he was not tachycardic due to being on chronic propranolol. In the ER, his blood pressure normalized and he was admitted to the ICU for further treatment due to SIRS/septic shock with end-organ damage including acute renal insufficiency with BUN of 112/5 now improved to 111/4.7, hyponatremia of 126 now 130, and severe hyperkalemia of 6.5. Initial VBG had no CO2 retention. He received Zosyn and vancomycin in the ER. He responded to 1500 cc fluid bolus and was normotensive in the ER but his white count was initially 21,000, now decreased to 17.1. Lactate 2.4 now 2.0. AST was mildly elevated at 39. He remains hyperkalemic at 6.7. He received Kayexalate. In the ICU he was given 10 units of regular insulin and D50. Past medical history: Includes hypothyroidism, hypercholesterolemia, hypertension, allergic rhinitis status post sinus surgery 1998, BATOOL on BiPAP for years chronically at home with good compliance, morbid obesity with BMI 57.4 weight 366 pounds. Smoker, type II but diabetes, chronic cellulitis, osteoarthritis. 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 Blood cultures are already positive for gram-positive cocci in pairs. ID has been consulted due to the possibility of infected hardware, potential for polymicrobial sepsis, and osteomyelitis in the left great toe. [facility] Medical History (Updated 11/16/22 @ 10:[address] Florencio Greenfield MD) BMI greater than 40 Cellulitis COVID-19 H/o back surgery HTN (hypertension) BATOOL treated with BiPAP Septic shock due to Gram positive bacteria Type 2 diabetes mellitus Home Medications B-complex with vitamin C 1 tab PO DAILY 03/03/20 [History Last Taken Unknown] ascorbate calcium (vitamin C) 500 mg tablet 500 mg PO DAILY 03/03/20 [History Last Taken Unknown] calcium carbonate 500 mg calcium (1,250 mg) tablet (Calcium 500) 500 mg PO DAILY 03/03/20 [History Last Taken Unknown] cholecalciferol (vitamin D3) 50 mcg (2,000 unit) capsule 50 mcg PO DAILY 03/03/20 [History Last Taken Unknown] diclofenac sodium 50 mg tablet,delayed release 50 mg PO BID 03/03/20 [History Last Taken Unknown] fluticasone propionate 50 mcg/actuation nasal spray,suspension (Flonase Allergy Relief) 1 spray intranasal DAILY 03/03/20 [History Last Taken Unknown] levocetirizine 5 mg tablet (24HR Allergy Relief) 5 mg PO DAILY 03/03/20 [History Last Taken Unknown] olmesartan 40 mg-hydrochlorothiazide 25 mg tablet 1 ea PO DAILY 03/03/20 [History Last Taken Unknown] oxycodone-acetaminophen 7.5 mg-325 mg tablet 1 ea PO Q4H PRN Pain 03/03/20 [History Last Taken Unknown] propranolol 10 mg tablet 10 mg PO DAILY 03/03/20 [History Last Taken Unknown] tizanidine 4 mg tablet 1 ea PO TID PRN Spasms 03/03/20 [History Last Taken Unknown] zinc 50 mg tablet 50 mg PO DAILY 03/03/20 [History Last Taken Unknown] Allergy/AdvReac Type Severity Reaction Status Date / Time No Known Allergies Allergy Verified 11/15/22 18:01 Family History Mother Hypertension Hypotension Diabetes Arthritis Father Hypertension Hypotension Heart disease Status post double vessel coronary artery bypass angina Arthritis Grandfather Prostate cancer Grandmother Uterine cancer Surgical History H/O sinus surgery Social History household members: other details: parents current occupational status: employed and retired Smoking Status: Former smoker alcohol intake: never substance use type: does not use do you feel safe at home: Yes Physical Exam Narrative Morbidly obese awake and alert talking and articulate on BiPAP and then saturating well on 3 L. HEENT unremarkable mucous membranes moist dentition good Neck is obese, no lesions Lungs are diminished due to obesity with suboptimal exam, but grossly clear bilaterally, no cough no sputum production. No wheezing rales or rhonchi. Heart normal S1-S2 with no murmurs Abdomen is obese, multiple areas of picked skin with eschars, none open or erythematous or purulent. Many chronically picked lesions healed. Extremities have bilateral cellulitis, severe venous stasis changes bilaterally, with greenish drainage on a lizbet behind his left leg. There is a bandage on the left great toe which was inspected, with necrotic skin overlying, deep lesion, grossly infected. Neurologic is diffusely weak, patient is unable to lift his feet off the bed. Many areas of abnormal skin due to picking, venous stasis changes of the lower extremity, edema, breakdown due to pressure trauma related to obesity. Lab / Micro Data 11/16/22 03:14 11/16/22 03:14 Labs: Laboratory Results - last 24 hr 11/15/22 18:35: WBC 21.0 H, RBC 3.81 L, Hgb 10.1 L, Hct 33.3 L, MCV 87.4, MCH 26.5 L, MCHC 30.3 L, RDW Std Deviation 47.4 H, RDW Coeff of Mary 14.7 H, Plt Count 387, MPV 9.9, Sodium 126 L, Potassium 6.6 H*, Chloride 93 L, Carbon Dioxide 23.0, Anion Gap 10, BUN 112 H*, Creatinine 5.08 H, Estim Creat Clear Calc 15.36, Est GFR (MDRD) Af Amer 15 L, Est GFR (MDRD) Non-Af 13 L, BUN/Creatinine Ratio 22.0 H, Glucose 240 H, Lactic Acid 2.4 H*, Calcium 9.8, Troponin I High Sens 7, B-Natriuretic Peptide 3.9 11/15/22 20:04: POC Glucose 215 H 11/15/22 22:27: POC Glucose 155 H 11/15/22 22:30: Troponin I High Sens 6, MRSA (PCR) Negative 11/15/22 23:30: Lactic Acid 2.0 11/16/22 03:14: WBC 17.1 H, RBC 3.51 L, Hgb 9.4 L, Hct 30.0 L, MCV 85.5, MCH 26.8 L, MCHC 31.3 L, RDW Std Deviation 45.5 H, RDW Coeff of Mary 14.6, Plt Count 331, MPV 9.7, Immature Gran % (Auto) 0.500, Neut % (Auto) 88.7 H, Lymph % (Auto) 4.7 L, [place] % (Auto) 5.9, Eos % (Auto) 0.1, Baso % (Auto) 0.1, Absolute Neuts (auto) 15.2 H, Absolute Lymphs (auto) 0.80 L, Nucleated RBC % 0, Sodium 130 L, Potassium 6.7 H*, Chloride 98, Carbon Dioxide 26.0, Anion Gap 6, BUN 111 H*, Creatinine 4.17 H, Estim Creat Clear Calc 18.71, Est GFR (MDRD) Af Amer 19 L, Est GFR (MDRD) Non-Af 16 L, BUN/Creatinine Ratio 26.6 H, Glucose 127 H, Calcium 9.0, Total Bilirubin 0.40, AST 39 H, ALT 32, Alkaline Phosphatase 65, Total Protein 6.0 L, Albumin 2.3 L, Globulin 3.7, Albumin/Globulin Ratio 0.6 L Micro: Microbiology 11/15/22 19:27 Blood Culture (Wb) - Left Hand Blood Culture - Preliminary 11/15/22 18:35 Blood Culture (Wb) - Left Hand Blood Culture - Preliminary Growing 2 out of 2 sets gram-positive cocci, final ID pending. ABG Data ABG results: ABG 11/15/22 19:09 Specimen Type MARY ELLEN VBG pH 7.37 VBG pO2 113 H VBG HCO3 24 VBG Total CO2 25 VBG O2 Sat (Calc) 98 H VBG Base Excess -2 L POC Mix VBG pCO2 Pt Tmp 41.0 O2 Delivery Device Cannula Liter Flow 3.0 Radiology Impression Chest X-Ray 11/15/22 19:00 IMPRESSION: Lower lobe atelectasis. Electronically Signed: Art Jackson MD at 19:16 EDT , Charges/Coding Procedures Hospitalists Procedures: [id number] Critial Care 1st Hr
--- NOTE | 2022-11-16 08:35 | PCM.RX.CS ---
Consult Antibiotic Management Pharmacy has been consulted to manage selected antiobiotic: Vancomycin Type of Intervention Type of Consult: New start Suspected Infection Suspected Infection: Skin/Soft tissue Labs Labs: Sodium 130 mmol/L (136-145) L 11/16/22 03:14 Potassium 6.7 mmol/L (3.5-5.1) H* 11/16/22 03:14 Chloride 98 mmol/L (98-107) 11/16/22 03:14 Carbon Dioxide 26.0 mmol/L (21.0-32.0) 11/16/22 03:14 Anion Gap 6 (5-15) 11/16/22 03:14 BUN 111 mg/dL (7-18) H* 11/16/22 03:14 Creatinine 4.17 mg/dL (0.70-1.30) H 11/16/22 03:14 Est GFR (MDRD) Af Amer 19 mL/min (>60) L 11/16/22 03:14 Est GFR (MDRD) Non-Af 16 mL/min (>60) L 11/16/22 03:14 BUN/Creatinine Ratio 26.6 RATIO (10-20) H 11/16/22 03:14 Glucose 127 mg/dL (74-106) H 11/16/22 03:14 Microbiology Microbiology: Microbiology 11/15/22 19:27 Blood Culture (Wb) - Left Hand Blood Culture - Preliminary 11/15/22 18:35 Blood Culture (Wb) - Left Hand Blood Culture - Preliminary Pharmacy Plan for Drug Dosing Pharmacy Plan for Drug Dosing: NEW START IV VANCOMYCIN Consulting Physician: PAVEL Indication: CELLULITIS/SEPSIS Goal Trough: 15-20 MG/DL SrCr: 4.17 MG/DL CrCl: 30 ML/MIN USING ADJ BW Comments: GIVEN 2000MG LOADING DOSE IN ER 11/15 @ 1931 Vancomycin Dose: WILL START 1500MG Q24 TONIGHT @ 1930 AND GET A TROUGH PRIOR TO 3RD DOSE PER POLICY. Pending Level: 11/17/22 @ 1900 Pharmacy Service will continue to monitor and adjust dosing as required.
[2022-11-16 09:16] LABS: Procalcitonin 0.96 ng/mL (0.00-0.09)
[2022-11-16] MEDS: 0.9% Normal Saline 1,000 ML 999 ML IV (09:19)
[2022-11-16] MEDS: Dextrose 50%-Water 25 GM/50 ML DISP.SYRIN IV (09:21)
[2022-11-16] MEDS: Insulin Lispro 100 UNIT/ML INSULN.PEN 10 UNIT SC (09:23)
--- NOTE | 2022-11-16 10:09 | RAD_ITS ---
STUDY: X-RAY - LEFT FOOT CLINICAL: Male, 57 years old. ?osteo L great toe. BEST FILMS DUE TO PATIENT CONDITION TECHNIQUE: 3 view(s) of the foot. COMPARISON: None. FINDINGS: Normal talus, calcaneus, and tarsal bones. Small plantar and posterior calcaneal enthesophytes. Normal visualized subtalar, talonavicular, calcaneocuboid, tarsal and tarsometatarsal articulations. Normal metatarsi. Normal metatarsophalangeal joint of the great toe. Normal tibial and fibular sesamoid bones. Normal interphalangeal joint of the great toe. Normal phalanges of the great toe. Normal second through fifth metatarsophalangeal joints. Healed fracture of the shaft of the fifth proximal phalanx. The soft tissue structures are unremarkable. No bone destruction to suggest osteomyelitis. RAD/Foot min 3 Views IMPRESSION: No radiographic evidence of osteomyelitis. Electronically Signed: Coy Juarez MD at 13:43 EDT ,
[2022-11-16] MEDS: 0.9% Normal Saline 1,000 ML 100 ML IV ×2 (10:28→20:05)
[2022-11-16 11:59] LABS: Bedside Glucose 104 mg/dL (74-106)
[2022-11-16] MEDS: Ondansetron 4 MG/2 ML Vial IV (12:07)
[2022-11-16] MEDS: 0.9% Saline Lock 10 ML Syringe IV (12:08)
[2022-11-16 13:19] LABS: Anion Gap 5 (5-15); BUN 109 mg/dL (7-18); BUN/Creat Ratio 34.7 RATIO (10-20); Calcium,Total 8.7 mg/dL (8.5-10.1); Chloride 101 mmol/L (98-107); Creatinine, Serum 3.14 mg/dL (0.70-1.30); EST Glomerular Filtration Rate 22 mL/min (>60); Est Glom Filt Rate - Afr Amer 27 mL/min (>60); Estimated Creatinine Clearance 24.85 ml/min; Glucose 95 mg/dL (74-106); Potassium 5.4 mmol/L (3.5-5.1); Sodium Level 133 mmol/L (136-145)
[2022-11-16] MEDS: Oxycodone/Apap 5/325 Tablet PO ×2 (15:51→22:24)
[2022-11-16 16:30] LABS: Bedside Glucose 76 mg/dL (74-106)
[2022-11-16] MEDS: MELATONIN 3 MG TABLET PO (22:24)
[2022-11-16 22:51] LABS: Bedside Glucose 91 mg/dL (74-106)
[2022-11-17] VITALS (18 sets, daily range): BP systolic 92–143; BP diastolic 43–59; PULSE 81–96; RESP 12–20; TEMP 36.7–37.3; O2SAT 88–99
[2022-11-17] MEDS: Acetaminophen 325 MG Tablet 650 MG PO (02:33)
[2022-11-17 05:09] LABS: Mucous, Urine 0 SEEN /hpf (<or=2+); Squamous Epithelial Cells - UA 0 SEEN /hpf (0-5)
[2022-11-17 05:10] LABS: Absolute Lymphocyte Count 1.34 X10^3/uL (0.83-4.51); Basophil# 0.02 X10^3/uL; Basophil% 0.2 % (0-1); Eosinophils% 1.2 % (0-5); Hematocrit 27.3 % (40-54); Hemoglobin 8.3 g/dL (13.0-16.5); Lymphocyte # 1.34 X10^3/ul (0.83-4.51); Lymphocyte % 15.7 % (19-41); Mean Corp Hgb Conc 30.4 g/dL (32-36); Mean Corpuscular Hgb 26.6 pg (27.0-32.0); Mean Corpuscular Volume 87.5 fL (80-94); Mean Platelet Vol. 9.6 fl (6.2-12.0); Monocyte# 1.01 X10^3/uL; Monocyte% 11.9 % (0-10); NRBC Flagged by Analyzer 0 % (0-5); Neutrophil # 6.01 X10^3/uL (2.7-7.7); Neutrophil % 70.5 % (47-70); Platelet Count 283 K/mm3 (150-450); RBC Distribution Width CV 14.8 % (11.6-14.6); RBC Distribution Width SD 47.3 fl (35.1-43.9); Red Blood Count 3.12 M/mm3 (4.6-6.2); White Blood Count 8.5 K/mm3 (4.4-11.0)
[2022-11-17 05:18] LABS: Color, Urine Yellow (Yellow); Glucose, Dipstick Normal (Normal); Ketone-Dipstick Negative (Negative); Leukocyte Esterase-Dipstick 500 /ul (Negative); Nitrite-Dipstick Negative (Negative); Occult Blood-Urine 250 /ul (Negative); Protein-Dipstick 30 mg/dl (Negative); Specific Gravity, Urine 1.015 (1.002-1.030); Urine Bilirubin Dipstick Negative (Negative); Urine Clarity Sl. Cloudy (Clear); Urine Urobilinogen Normal (Normal)
[2022-11-17 05:27] LABS: Bacteria 2+ /hpf (None Seen); Red Blood Cells-Urine 5-10 SEEN /hpf (0-5); White Blood Cells 25-50 SEEN /hpf (0-5)
[2022-11-17 05:45] LABS: ALB/GLOB Ratio 0.6 RATIO (0.9-2.4); AST(SGOT) 53 U/L (15-37); Alanine Aminotransfer ALT/SGPT 28 U/L (16-61); Alkaline Phosphatase 59 U/L (45-117); Anion Gap 6 (5-15); BUN 100 mg/dL (7-18); BUN/Creat Ratio 46.7 RATIO (10-20); Calcium,Total 7.8 mg/dL (8.5-10.1); Chloride 104 mmol/L (98-107); Creatinine, Serum 2.14 mg/dL (0.70-1.30); EST Glomerular Filtration Rate 34 mL/min (>60); Est Glom Filt Rate - Afr Amer 41 mL/min (>60); Estimated Creatinine Clearance 36.46 ml/min; Globulin 3.6 g/dL (2.2-4.2); Glucose 107 mg/dL (74-106); Magnesium 3.3 mg/dL (1.6-2.6); Phosphorus 5.2 mg/dL (2.5-4.9); Potassium 4.9 mmol/L (3.5-5.1); Protein, Total 5.6 g/dL (6.4-8.2); Sodium Level 137 mmol/L (136-145)
--- NOTE | 2022-11-17 07:03 | ECHOD_ITS ---
Version 2 Reason For Study: E FAECALIS BACTEREMIA Procedure This was a 2D Doppler, Color Flow transthoracic echocardiogram. Technically difficult study due to patient being unable to move and body habitus. Patient scanned in sitting position. Exam performed portable in ICU/CCU. Left Ventricle Normal LV size. Moderate concentric left ventricular hypertrophy. Left ventricular systolic function is normal. The estimated ejection fraction is 55 %. No regional wall motion abnormalities noted. Right Ventricle Normal RV size. Normal systolic function. Atria The left atrium is moderately enlarged. Normal right atrium. Intact atrial septum. Bubble contrast study negative for right to left interatrial shunt. Great Vessels Normal aortic root. Pericardium/Pleural No pericardial effusion. Medication Performed a rapid injection of agitated mix of 9 cc saline and 1cc air to assess for atrial septal defect. MMode/2D Measurements & Calculations LVIDd: 5.2 cm IVSd: 1.4 cm Ao root diam: 3.4 cm LVIDs: 3.8 cm LVPWd: 1.7 cm FS: 26.5 % LAV(MOD-sp4): 70.9 ml LA A4 area: 23.9 cm2 RA A4 area: 18.1 cm2 Time Measurements MV dec time: 0.12 sec Doppler Measurements & Calculations MV E max ramo: 88.5 cm/sec Lat Peak E' Ramo: 9.6 cm/sec Med Peak E' Ramo: 9.0 cm/sec MV A max ramo: 72.1 cm/sec E/E' lat: 9.2 E/E' med: 9.8 MV E/A: 1.2 MV V2 max: 87.3 cm/sec MV dec slope: 728.6 cm/sec2 Ao V2 max: 192.8 cm/sec MV max P.1 mmHg Ao max P.9 mmHg MV V2 mean: 58.0 cm/sec Ao V2 mean: 128.3 cm/sec MV mean P.6 mmHg Ao mean P.7 mmHg MV V2 VTI: 21.0 cm Ao V2 VTI: 34.7 cm ECHO/Echo Complete Interpretation Summary Left ventricular systolic function is normal. The estimated ejection fraction is 55 %. Normal LV size. Moderate concentric left ventricular hypertrophy. Bubble contrast study negative for right to left interatrial shunt. Ordering Physician: Vanessa Matias Referring Physician: Wilma Thayer Performed By: Char Gtz RCS
[2022-11-17] MEDS: 0.9% Normal Saline 1,000 ML 100 ML IV (07:24)
[2022-11-17] MEDS: Heparin Injection (Vial) 5,000 UNIT/ML VIAL 5000 UNIT SC (07:25)
[2022-11-17 07:44] LABS: Bedside Glucose 103 mg/dL (74-106)
--- NOTE | 2022-11-17 08:30 | VDLE_ITS ---
Reason For Study: Bilateral leg swelling RIGHT LEFT GSV is normal. GSV is normal. CFV is compressible, spontaneous, phasic, CFV is compressible, spontaneous, phasic, competent and demonstrates normal competent, and demonstrates normal augmentation. augmentation. FV is compressible, spontaneous, phasic, FV is compressible, spontaneous, phasic, competent and demonstrates normal competent and demonstrates normal augmentation. augmentation. POP V is compressible, spontaneous, phasic, POP V is compressible, spontaneous, phasic, competent and demonstrates normal competent and demonstrates normal augmentation. augmentation. T/P Trunk is compressible. T/P Trunk is compressible. PTV is compressible. PTV is compressible. RT PerV is compressible. LT PerV is compressible. Procedure This is a venous duplex using B-mode, color flow and spectral Doppler. Exam performed portable in ICU/CCU. Technically difficult due to pt body habitus. A preliminary report was called and/or faxed to ICU. VL/Venous Duplex US - Zachery Extrem Interpretation Summary Deep veins of the bilateral lower extremities are patent and compressible segme ntally. There is no evidence of bilateral lower extremity deep vein thrombosis. The bilateral great saphenous veins appear patent and compressible segmentally. Ordering Physician: Alexei Marley Referring Physician: Wilma Thayer Performed By: Katiuska Bailey RVT
--- NOTE | 2022-11-17 09:37 | PCM.PN.INT ---
Assessment & Plan Assessment/Plan (1) Sepsis due to Enterobacter: PLAN: Patient was seen today by Dr. Florentino Hanna of ID, and Dr. Julien Marley of podiatry, and consults appreciated. He recommended changing Zosyn to Unasyn 2 g IV every 6 hours. Patient has improved clinically white count has normalized fever is resolved. It remains to be determined regarding the length of therapy, which will depend on whether his hardware is infected. He will have an MRI later today to help determine that. He will also need an MRI of his hip prosthesis. - unasyn - wound care; appreciate their input - await additional cultures, final urine and wounds - wound cuture L great toe - urine suggests infection also, with increased WBC and leuk esterase (2) Injury to L1 level of spinal cord: PLAN: Happened shortly after his fall, is of concern for transection versus contusion when he fell 10 days prior to admission, and noted that he could not walk about 4 days later. Likely has swelling about the area of trauma, I have started high-dose Decadron. - Teleneurology consult appreciated. - Decadron - Stat MRI of lumbar and thoracic spine - Minimize movement, will hold on PT for now. - Discussed with Dr. Matias, will transfer patient to the site of his previous neurosurgery consultation for higher level of care. We do not have neurosurgery available here. (3) Cellulitis of leg without foot, right: PLAN: Unasyn, Zosyn discontinued per ID, will re-add treatment for Pseudomonas if wound cultures show it. That seems likely due to the odor and greenish drainage from his posterior calves. - Local care, wraps, as recommended by podiatry - Eventual application of pumps once edema decreases and lesions improve - No lesions need debridement at this time. Local care for the stage II anterior left cadena ulcer of approximately 3 cm is recommended currently. (4) Cellulitis of leg without foot, left: PLAN: Same as above. (5) Acute renal failure: QUALIFIERS: Acute renal failure type: unspecified Qualified Code(s): N17.9 - Acute kidney failure, unspecified PLAN: Slightly improved. Patient has extensive third spaced fluid, BUN and creatinine are both improving. - Maintain good perfusion and oxygenation. - Follow electrolytes - No indication for dialysis at this time. (6) BATOOL treated with BiPAP: PLAN: Tolerating 16/10, rate 14, FiO2 35% well at night and with naps. - He will use supplemental oxygen which is currently room air to 2 L during the day. - Incentive spirometry to avoid atelectasis. 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 Managed by hospitalist team. PLAN: Plan Critical care time spent with patient at bedside, review of documentation, lab results, radiology and other test results, discussion during interdisciplinary rounds with colleagues and ancillary staff, clinical management of patient, and updating f sister at bedside, was 90 minutes. [place] 22521, [address]1524. Subjective Subjective Patient feels better today with respect to breathing and overall achiness. I noted today he was not moving his feet, wiggling toes or lifting legs. He is following commands well and completely alert & oriented, able to follow all commands with UEs, but not LEs. He has an L2 level bilateral hemiparesis, and unable to feel lateral thighs just below groin, able to feel medial thighs, not medial calves. Further questioning revealed he was able to walk a few steps, transfer to recliner, wheelchair until 2 days after he fell, about 8 days ago. He did not tell anyone about this symptom until I asked him about it today. He also complains of bilateral ulnar tingling; has been in bed with cushioning and raising of arms. Not OOB to chair yet due to BP, will start today if safe to do so per neurology. He may need to be transferred due to availability of higher level of care (neuro/n'surgery). High-dose Decadron was added stat for possible spinal cord swelling. Stat teleneurology services were ordered. Stat neurosurgery consult and stat MRI of the lumbar and thoracic spine was recommended. MRI was scheduled for earliest available today. Objective Data Objective Data Vital Signs: Vital Signs Temp Pulse Resp BP Pulse Ox O2 Del Method O2 Flow Rate 98.1 F 88 14 94/50 L 88 Room Air 2 11/17/22 07:00 11/17/22 07:00 11/17/22 07:00 11/17/22 07:00 11/17/22 09:05 11/17/22 09:05 11/16/22 22:00 FiO2 35 11/17/22 04:08 Oxygen Flow Rate (L/min) 2 Oxygen Delivery Method Room Air Weight: 366 lb 3.005 oz Body Mass Index (BMI) 57.4 Tolerated BiPAP 16/10 rate 14, FiO2 35% with sleep and naps; on RA and occasional 2L otherwise. Intake & Output: Intake and Output for Last 24 Hours 11/15/22 11/16/22 11/17/22 23:59 23:59 23:59 Intake Total 1140 / 1240 4841.67 / 4841.67 1050 / 1050 Output Total 1800 / 1800 6825 / 6825 1400 / 1400 Balance -660 / -560 -1982.33 / -1982.33 -350 / -350 Lab / Micro Data Attestation: I reviewed the patient's lab results. 11/17/22 04:55 11/17/22 04:55 Labs: Laboratory Results - last 24 hr 11/16/22 11:13: POC Glucose 104 11/16/22 12:40: Sodium 133 L, Potassium 5.4 H, Chloride 101, Carbon Dioxide 27.0, Anion Gap 5, BUN 109 H*, Creatinine 3.14 H, Estim Creat Clear Calc 24.85, Est GFR (MDRD) Af Amer 27 L, Est GFR (MDRD) Non-Af 22 L, BUN/Creatinine Ratio 34.7 H, Glucose 95, Calcium 8.7 11/16/22 16:12: POC Glucose 76 11/16/22 22:30: POC Glucose 91 11/17/22 04:55: WBC 8.5, RBC 3.12 L, Hgb 8.3 L, Hct 27.3 L, MCV 87.5, MCH 26.6 L, MCHC 30.4 L, RDW Std Deviation 47.3 H, RDW Coeff of Mary 14.8 H, Plt Count 283, MPV 9.6, Immature Gran % (Auto) 0.500, Neut % (Auto) 70.5 H, Lymph % (Auto) 15.7 L, [place] % (Auto) 11.9 H, Eos % (Auto) 1.2, Baso % (Auto) 0.2, Absolute Neuts (auto) 6.0, Absolute Lymphs (auto) 1.34, Nucleated RBC % 0, Sodium 137, Potassium 4.9, Chloride 104, Carbon Dioxide 27.0, Anion Gap 6, BUN 100 H, Creatinine 2.14 H, Estim Creat Clear Calc 36.46, Est GFR (MDRD) Af Amer 41 L, Est GFR (MDRD) Non-Af 34 L, BUN/Creatinine Ratio 46.7 H, Glucose 107 H, Calcium 7.8 L, Phosphorus 5.2 H, Magnesium 3.3 H, Total Bilirubin 0.40, AST 53 H, ALT 28, Alkaline Phosphatase 59, Total Protein 5.6 L, Albumin 2.0 L, Globulin 3.6, Albumin/Globulin Ratio 0.6 L, Urine Color Yellow, Urine Clarity Sl. Cloudy, Urine pH 6.0, Ur Specific [place] 1.015, Urine Protein 30 H, Urine Glucose (UA) Normal, Urine Ketones Negative, Urine Occult Blood 250 H, Urine Nitrite Negative, Urine Bilirubin Negative, Urine Urobilinogen Normal, Ur Leukocyte Esterase 500 H, Urine RBC 5-10 SEEN, Urine WBC 25-50 SEEN, Ur Squamous Epith Cells 0 SEEN, Urine Bacteria 2+, Urine Mucus 0 SEEN 11/17/22 07:25: POC Glucose 103 Micro: Microbiology 11/16/22 12:30 Wound - Left Foot Gram Stain - Final 11/15/22 19:27 Blood Culture (Wb) - Left Hand Blood Culture - Final GPC Poss Enterococcus sp 11/15/22 18:35 Blood Culture (Wb) - Left Hand Bacteria Detection (PCR) - Final Enterococcus faecalis 11/15/22 18:35 Blood Culture (Wb) - Left Hand Blood Culture - Preliminary Enterococcus faecalis 11/17/22 04:55 Urine Catheter - Campbell Legionella Antigen - Final Current antibiotics include vancomycin, (discontinued), Unasyn 2 g IV every 6 (Zosyn discontinued). Radiography Diagnostic Testing: Radiology Impression Foot X-Ray 11/16/22 10:09 IMPRESSION: No radiographic evidence of osteomyelitis. Electronically Signed: Coy Juarez MD at 13:43 EDT , MRI thoracic and lumbar spine ordered for today. Stat Physical Exam Narrative Well-developed, pleasant articulate morbidly obese gentleman with BMI 57, no respiratory distress. HEENT is unremarkable, no skin abrasion at BiPAP site. His membranes moist. Chest: Unlabored breathing. Clear. Heart normal S1-S2 with no murmurs rubs or gallops Abdomen is obese Extremities have diffuse erythema of the lower extremities some creasing of the skin consistent with diuresis over the past 24 hours. Skin lesions unchanged including left great toe, dry crusted eschar on the anterior left lower cadena, posteriorly open and draining small multiple lesions stage I-II, greenish purulence. Neuro: Cranial nerves intact Decreased ability to handgrip bilaterally, new; full range of motion arm and neck. Sensory absence in the lateral thighs approximately 4 inches below the inguinal crease. Moderate sensory decrease in the medial thighs below the groin. Absent sensation below the knees bilaterally. 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 I did notice mild inward rotation of the left leg on command. No motion of the right leg. Able to bend at the waist. He is diffusely weak at baseline due to morbid obesity and being largely chair bound. Neuro exam seems consistent with a L1 and below cord level deficit, equal bilaterally. Patient cooperated fully with exam. He stated he was trying to move his extremities but just could not. There also may be a developing bilateral ulnar neuropathy, secondary to lying supine in a morbidly obese patient despite frequent moving and padding. Notably this was a reason that recent surgery was canceled. Const alert and oriented x3 General Appearance: cooperative Charges/Coding Procedures Hospitalists Procedures: 32090 Critial Care 1st Hr
--- NOTE | 2022-11-17 09:45 | WOUNDNOTE ---
wound photo: left great toe
--- NOTE | 2022-11-17 09:46 | WOUNDNOTE ---
wound photo: left lower leg
--- NOTE | 2022-11-17 09:47 | WOUNDNOTE ---
wound photo: right lower leg
--- NOTE | 2022-11-17 10:01 | CON.PCM_ITS ---
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 Patient has history of lymphedema. Patient fell 10 days prior. Patient's been unable to ambulate since that time. Notes increased pain swelling redness to bilateral lower extremity patient denies any constitutional symptoms at current. Patient denies any pain. Patient unable to actively move digits ankle or knee at this time. Patient notes that he is chronic issues with swelling which usually uses a topical corticosteroid cream to help with the redness as well as his mom wraps his legs to help with the edema and he elevates them when he is at rest. Patient denies ever having been to a lymphedema clinic before [facility] Medical History BMI greater than 40 Cellulitis COVID-19 H/o back surgery Hemiparesis HTN (hypertension) BATOOL treated with BiPAP Septic shock due to Gram positive bacteria Type 2 diabetes mellitus Home Medications B-complex with vitamin C 1 tab PO DAILY 03/03/20 [History Last Taken Unknown] ascorbate calcium (vitamin C) 500 mg tablet 500 mg PO DAILY 03/03/20 [History Last Taken Unknown] calcium carbonate 500 mg calcium (1,250 mg) tablet (Calcium 500) 500 mg PO DAILY 03/03/20 [History Last Taken Unknown] cholecalciferol (vitamin D3) 50 mcg (2,000 unit) capsule 50 mcg PO DAILY 03/03/20 [History Last Taken Unknown] diclofenac sodium 50 mg tablet,delayed release 50 mg PO BID 03/03/20 [History Last Taken Unknown] fluticasone propionate 50 mcg/actuation nasal spray,suspension (Flonase Allergy Relief) 1 spray intranasal DAILY 03/03/20 [History Last Taken Unknown] levocetirizine 5 mg tablet (24HR Allergy Relief) 5 mg PO DAILY 03/03/20 [History Last Taken Unknown] olmesartan 40 mg-hydrochlorothiazide 25 mg tablet 1 ea PO DAILY 03/03/20 [History Last Taken Unknown] oxycodone-acetaminophen 7.5 mg-325 mg tablet 1 ea PO Q4H PRN Pain 03/03/20 [History Last Taken Unknown] propranolol 10 mg tablet 10 mg PO DAILY 03/03/20 [History Last Taken Unknown] tizanidine 4 mg tablet 1 ea PO TID PRN Spasms 03/03/20 [History Last Taken Unknown] zinc 50 mg tablet 50 mg PO DAILY 03/03/20 [History Last Taken Unknown] Allergy/AdvReac Type Severity Reaction Status Date / Time No Known Allergies Allergy Verified 11/15/22 18:01 Family History Mother Hypertension Hypotension Diabetes Arthritis Father Hypertension Hypotension Heart disease Status post double vessel coronary artery bypass angina Arthritis Grandfather Prostate cancer Grandmother Uterine cancer Surgical History H/O sinus surgery Social History household members: other details: parents current occupational status: employed and retired Smoking Status: Former smoker alcohol intake: never substance use type: does not use do you feel safe at home: Yes Physical Exam Narrative Vascular dorsalis pedis posterior tibial pulses palpable 2 out of 4 to bilateral lower extremity. +2 pitting edema to bilateral lower extremity. Focal increase in warmth erythema to bilateral mid tibial legs Multiple patches partial-thickness ulcerations noted to the anterior legs bilaterally with periwound erythema edema and warmth. No underlying fluctuance crepitus or deep probing at this time. Wounds demonstrate fibrous base Focal bolus noted to left hallux stable granular base. No acute signs of infection. Patient unable to actively move digits or lower extremity muscle compartments at all 0/5 strength No gross deformity noted. Const alert and oriented x3 Lab / Micro Data 11/17/22 04:55 11/17/22 04:55 Labs: Laboratory Results - last 24 hr 11/16/22 11:13: POC Glucose 104 11/16/22 12:40: Sodium 133 L, Potassium 5.4 H, Chloride 101, Carbon Dioxide 27.0, Anion Gap 5, BUN 109 H*, Creatinine 3.14 H, Estim Creat Clear Calc 24.85, Est GFR (MDRD) Af Amer 27 L, Est GFR (MDRD) Non-Af 22 L, BUN/Creatinine Ratio 34.7 H, Glucose 95, Calcium 8.7 11/16/22 16:12: POC Glucose 76 11/16/22 22:30: POC Glucose 91 11/17/22 04:55: WBC 8.5, RBC 3.12 L, Hgb 8.3 L, Hct 27.3 L, MCV 87.5, MCH 26.6 L , MCHC 30.4 L, RDW Std Deviation 47.3 H, RDW Coeff of Mary 14.8 H, Plt Count 283, MPV 9.6, Immature Gran % (Auto) 0.500, Neut % (Auto) 70.5 H, Lymph % (Auto) 15.7 L, [place] % (Auto) 11.9 H, Eos % (Auto) 1.2, Baso % (Auto) 0.2, Absolute Neuts (auto) 6.0, Absolute Lymphs (auto) 1.34, Nucleated RBC % 0, Sodium 137, Potassium 4.9, Chloride 104, Carbon Dioxide 27.0, Anion Gap 6, BUN 100 H, Creatinine 2.14 H, Estim Creat Clear Calc 36.46, Est GFR (MDRD) Af Amer 41 L, Est GFR (MDRD) Non-Af 34 L, BUN/Creatinine Ratio 46.7 H, Glucose 107 H, Calcium 7.8 L, Phosphorus 5.2 H, Magnesium 3.3 H, Total Bilirubin 0.40, AST 53 H, ALT 28, Alkaline Phosphatase 59, Total Protein 5.6 L, Albumin 2.0 L, Globulin 3.6, Albumin/Globulin Ratio 0.6 L, Urine Color Yellow, Urine Clarity Sl. Cloudy, Urine pH 6.0, Ur Specific [place] 1.015, Urine Protein 30 H, Urine Glucose (UA) Normal, Urine Ketones Negative, Urine Occult Blood 250 H, Urine Nitrite Negative, Urine Bilirubin Negative, Urine Urobilinogen Normal, Ur Leukocyte Esterase 500 H, Urine RBC 5-10 SEEN, Urine WBC 25-50 SEEN, Ur Squamous Epith C ells 0 SEEN, Urine Bacteria 2+, Urine Mucus 0 SEEN 11/17/22 07:25: POC Glucose 103 Micro: Microbiology 11/16/22 12:30 Wound - Left Foot Gram Stain - Final 11/15/22 19:27 Blood Culture (Wb) - Left Hand Blood Culture - Final GPC Poss Enterococcus sp 11/15/22 18:35 Blood Culture (Wb) - Left Hand Bacteria Detection (PCR) - Final Enterococcus faecalis 11/15/22 18:35 Blood Culture (Wb) - Left Hand Blood Culture - Preliminary Enterococcus faecalis 11/17/22 04:55 Urine Catheter - Campbell Legionella Antigen - Final Radiology Impression Foot X-Ray 11/16/22 10:09 IMPRESSION: No radiographic evidence of osteomyelitis. Electronically Signed: Coy Juarez MD at 13:43 EDT ,
--- NOTE | 2022-11-17 10:31 | PCM.CONS.GEN ---
Assessment & Plan Assessment/Plan (1) Sepsis: PLAN: Enterococcal bacteremia in a patient presents with sepsis and acute renal injury. Patient's renal function has improved over the last 24 to 48 hours. Of concern is his acute neurological condition of his lower extremity motor strength. Regards to the enterococcal bacteremia we will treat ampicillin 2 g IV every 6 hours, repeat blood cultures were sent. Very low threshold to have neurology as well as a spine surgeon to evaluate the patient emergently given his acute neurological condition. HPI Consult Data Date of Consult: 11/17/22 HPI Narrative Reason for Consultation: Sepsis/bacteremia HPI Narrative: MELISSA ELIAS, is a 57 M who presents difficulty ambulating over 4-day period and unable to move his lower extremities. Patient was admitted to the ICU with severe sepsis. Admission blood cultures are now growing Enterococcus faecalis. Interestingly roughly 12 days ago patient fell on his back and injured his lower back at that trauma. Apparently has some pins and needle sensation of his lower extremities shortly after the fall and over the last 4 days has not able to ambulate or move his legs. He currently has a Campbell catheter in place. Patient was admitted found to be in acute renal failure. No cardiopulmonary distress. Patient does have a history of spine disease and previous spine surgeries last surgery was in 2020. He also has underlying diabetes mellitus and morbid obesity. Patient was admitted and placed on vancomycin plus Zosyn. No gastrointestinal distress. [facility] Medical History BMI greater than 40 Cellulitis COVID-19 H/o back surgery Hemiparesis HTN (hypertension) BATOOL treated with BiPAP Septic shock due to Gram positive bacteria Type 2 diabetes mellitus Home Medications B-complex with vitamin C 1 tab PO DAILY 03/03/20 [History Last Taken Unknown] ascorbate calcium (vitamin C) 500 mg tablet 500 mg PO DAILY 03/03/20 [History Last Taken Unknown] calcium carbonate 500 mg calcium (1,250 mg) tablet (Calcium 500) 500 mg PO DAILY 03/03/20 [History Last Taken Unknown] cholecalciferol (vitamin D3) 50 mcg (2,000 unit) capsule 50 mcg PO DAILY 03/03/20 [History Last Taken Unknown] diclofenac sodium 50 mg tablet,delayed release 50 mg PO BID 03/03/20 [History Last Taken Unknown] fluticasone propionate 50 mcg/actuation nasal spray,suspension (Flonase Allergy Relief) 1 spray intranasal DAILY 03/03/20 [History Last Taken Unknown] levocetirizine 5 mg tablet (24HR Allergy Relief) 5 mg PO DAILY 03/03/20 [History Last Taken Unknown] olmesartan 40 mg-hydrochlorothiazide 25 mg tablet 1 ea PO DAILY 03/03/20 [History Last Taken Unknown] oxycodone-acetaminophen 7.5 mg-325 mg tablet 1 ea PO Q4H PRN Pain 03/03/20 [History Last Taken Unknown] propranolol 10 mg tablet 10 mg PO DAILY 03/03/20 [History Last Taken Unknown] tizanidine 4 mg tablet 1 ea PO TID PRN Spasms 03/03/20 [History Last Taken Unknown] zinc 50 mg tablet 50 mg PO DAILY 03/03/20 [History Last Taken Unknown] Allergy/AdvReac Type Severity Reaction Status Date / Time No Known Allergies Allergy Verified 11/15/22 18:01 Family History Mother Hypertension Hypotension Diabetes Arthritis Father Hypertension Hypotension Heart disease Status post double vessel coronary artery bypass angina Arthritis Grandfather Prostate cancer Grandmother Uterine cancer Surgical History H/O sinus surgery Social History household members: other details: parents current occupational status: employed and retired Smoking Status: Former smoker alcohol intake: never substance use type: does not use do you feel safe at home: Yes ROS ROS Narrative As stated in the history of present illness Physical Exam Narrative Alert responsive oriented to person place and time. Lungs are clear heart exam S1-S2 very distant heart sounds. Abdomen is obese but soft. Campbell catheter is in place. Patient unable to move his lower extremities. No motor strength. Lab / Micro Data 11/17/22 04:55 11/17/22 04:55 Labs: Laboratory Results - last 24 hr 11/16/22 11:13: POC Glucose 104 11/16/22 12:40: Sodium 133 L, Potassium 5.4 H, Chloride 101, Carbon Dioxide 27.0, Anion Gap 5, BUN 109 H*, Creatinine 3.14 H, Estim Creat Clear Calc 24.85, Est GFR (MDRD) Af Amer 27 L, Est GFR (MDRD) Non-Af 22 L, BUN/Creatinine Ratio 34.7 H, Glucose 95, Calcium 8.7 11/16/22 16:12: POC Glucose 76 11/16/22 22:30: POC Glucose 91 11/17/22 04:55: WBC 8.5, RBC 3.12 L, Hgb 8.3 L, Hct 27.3 L, MCV 87.5, MCH 26.6 L, MCHC 30.4 L, RDW Std Deviation 47.3 H, RDW Coeff of Mary 14.8 H, Plt Count 283, MPV 9.6, Immature Gran % (Auto) 0.500, Neut % (Auto) 70.5 H, Lymph % (Auto) 15.7 L, [place] % (Auto) 11.9 H, Eos % (Auto) 1.2, Baso % (Auto) 0.2, Absolute Neuts (auto) 6.0, Absolute Lymphs (auto) 1.34, Nucleated RBC % 0, Sodium 137, Potassium 4.9, Chloride 104, Carbon Dioxide 27.0, Anion Gap 6, BUN 100 H, Creatinine 2.14 H, Estim Creat Clear Calc 36.46, Est GFR (MDRD) Af Amer 41 L, Est GFR (MDRD) Non-Af 34 L, BUN/Creatinine Ratio 46.7 H, Glucose 107 H, Calcium 7.8 L, Phosphorus 5.2 H, Magnesium 3.3 H, Total Bilirubin 0.40, AST 53 H, ALT 28, Alkaline Phosphatase 59, Total Protein 5.6 L, Albumin 2.0 L, Globulin 3.6, Albumin/Globulin Ratio 0.6 L, Urine Color Yellow, Urine Clarity Sl. Cloudy, Urine pH 6.0, Ur Specific [place] 1.015, Urine Protein 30 H, Urine Glucose (UA) Normal, Urine Ketones Negative, Urine Occult Blood 250 H, Urine Nitrite Negative, Urine Bilirubin Negative, Urine Urobilinogen Normal, Ur Leukocyte Esterase 500 H, Urine RBC 5-10 SEEN, Urine WBC 25-50 SEEN, Ur Squamous Epith Cells 0 SEEN, Urine Bacteria 2+, Urine Mucus 0 SEEN 11/17/22 07:25: POC Glucose 103 Micro: Microbiology 11/16/22 12:30 Wound - Left Foot Gram Stain - Final 11/16/22 12:30 Wound - Left Foot Wound Culture - Preliminary GNR Poss Pseudomonas sp Staphylococcus aureus Beta streptococcus 11/15/22 19:27 Blood Culture (Wb) - Left Hand Blood Culture - Final GPC Poss Enterococcus sp 11/15/22 18:35 Blood Culture (Wb) - Left Hand Bacteria Detection (PCR) - Final Enterococcus faecalis 11/15/22 18:35 Blood Culture (Wb) - Left Hand Blood Culture - Preliminary Enterococcus faecalis 11/17/22 04:55 Urine Catheter - Campbell Legionella Antigen - Final Radiology Impression Foot X-Ray 11/16/22 10:09 IMPRESSION: No radiographic evidence of osteomyelitis. Electronically Signed: Coy Juarez MD at 13:43 EDT ,
--- NOTE | 2022-11-17 10:39 | CASEMGMT ---
KATHRYN WORTHY NOTE: Insurance review for hospitals In-network with?[employer] POS II Insurance if transfer is recommended is as follows: [facility], [place], [facility], [facility], [facility], [facility], [facility]), [facility], and . Dee CAPELLANN KATHRYN CM
[2022-11-17] MEDS: dexAMETHasone 10 MG/ML Vial IV (10:49)
[2022-11-17 12:03] LABS: Bedside Glucose 115 mg/dL (74-106)
--- NOTE | 2022-11-17 13:40 | DS.PCM_ITS ---
Providers Date of Admission: 11/15/22 Date of Discharge: 11/17/22 Primary Care Physician: Dr. Wilma Thayer, Consultations 11/15/22 20:56 Consult: Weather Strip Installer / Pulmonary Medicine Routine Consulting Provider: Florencio Greenfield Reason for Consult: Sepsis EMERGENT Consult: No MD Notified: Yes Date Notified: 11/15/22 Time Notified: 20:42 Method of Notification: ED Physician Initiated 11/16/22 09:58 Consult: Infectious Disease Routine Consulting Provider: Jewel Cm Reason for Consult: septic shock, ?osteo, cellulitis, ?infected hardware R hip and/or spine EMERGENT Consult: No MD Notified: Yes Date Notified: 11/16/22 Time Notified: 09:59 Method of Notification: Answering Service Method of Consult:: In-Person 11/16/22 10:30 Consult: Podiatry Routine Consulting Provider: Alexei Marley Reason for Consult: Debridement L toe wound, leg care, patient with septic shock and bacteremia EMERGENT Consult: No MD Notified: No Date Notified: 11/16/22 Time Notified: 10:30 Method of Notification: Verbal 11/17/22 07:46 Consult: Onc/Wound/rn or lpn Routine Comment: Reason for Consult:: L great toe wound, cellulitis 11/17/22 07:53 Consult: Podiatry Routine Consulting Provider: Alexei Marley Reason for Consult: L great toe wound EMERGENT Consult: No MD Notified: Yes Date Notified: 11/16/22 Time Notified: 16:00 Method of Notification: Verbal 11/17/22 08:11 Consult: Neurology Routine Consulting Provider: Carlos Lacy Reason for Consult: spinal cord acute paralysis EMERGENT Consult: Yes MD Notified: Yes Date Notified: 11/17/22 Time Notified: 08:13 Method of Notification: Verbal Comments:: message left on cell phone via commercial fishing vessel 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 Reason For Visit: SEPSIS SECONDARY TO BILATERAL CELLULITIS Diagnosis Discharge Diagnosis (1) Sepsis due to Enterobacter: Status: Acute Code(s): A41.59 - Other Gram-negative sepsis (2) Injury to L1 level of spinal cord: Status: Acute Code(s): S34.101A - Unspecified injury to L1 level of lumbar spinal cord, initial encounter (3) Cellulitis of leg without foot, right: Status: Acute Code(s): L03.115 - Cellulitis of right lower limb (4) Cellulitis of leg without foot, left: Status: Acute Code(s): L03.116 - Cellulitis of left lower limb (5) Acute renal failure: Status: Acute Code(s): N17.9 - Acute kidney failure, unspecified Qualifiers: Acute renal failure type: unspecified Qualified Code(s): N17.9 - Acute kidney failure, unspecified (6) BATOOL treated with BiPAP: Status: Acute Code(s): G47.33 - Obstructive sleep apnea (adult) (pediatric) (7) Lymphedema: Status: Acute Code(s): I89.0 - Lymphedema, not elsewhere classified (8) Type 2 diabetes mellitus: Status: Acute Code(s): E11.9 - Type 2 diabetes mellitus without complications Qualifiers: Diabetes mellitus complication detail: with polyneuropathy Diabetes mellitus complication status: with neurologic complications Diabetes mellitus hyperion essbase developer insulin use: without care home use Qualified Code(s): E11.42 - Type 2 diabetes mellitus with diabetic polyneuropathy Medications at Discharge Home Medications B-complex with vitamin C 1 tab PO DAILY 03/03/20 ascorbate calcium (vitamin C) 500 mg tablet 500 mg PO DAILY 03/03/20 calcium carbonate 500 mg calcium (1,250 mg) tablet (Calcium 500) 500 mg PO DAILY 03/03/20 cholecalciferol (vitamin D3) 50 mcg (2,000 unit) capsule 50 mcg PO DAILY 03/03/20 diclofenac sodium 50 mg tablet,delayed release 50 mg PO BID 03/03/20 fluticasone propionate 50 mcg/actuation nasal spray,suspension (Flonase Allergy Relief) 1 spray intranasal DAILY 03/03/20 levocetirizine 5 mg tablet (24HR Allergy Relief) 5 mg PO DAILY 03/03/20 olmesartan 40 mg-hydrochlorothiazide 25 mg tablet 1 ea PO DAILY 03/03/20 oxycodone-acetaminophen 7.5 mg-325 mg tablet 1 ea PO Q4H PRN Pain 03/03/20 propranolol 10 mg tablet 10 mg PO DAILY 03/03/20 tizanidine 4 mg tablet 1 ea PO TID PRN Spasms 03/03/20 zinc 50 mg tablet 50 mg PO DAILY 03/03/20 Hospital Course Procedures 2-D Echocardiogram, EKG and - (Foot x-ray/chest x-ray) Summary of Care Provided Minutes Spent on Discharge: 45 Hospital Course: Mr. Zuleta is a 57-year-old white male who presented to the emergency department at [facility] on 11/15/2022 with worsening bilateral lower extremity redness and edema. Patient reported he had chronic erythema and swelling in both of his legs but he felt that the swelling and erythema had worsened. He reported that he had a fall about 10 days ago at which time he developed worsening swelling in his legs and leakage from bilateral legs. At home, his mother has been helping him dress the wounds. He denied any fever but did complain of chills and anorexia along with fatigue and generalized weakness. He had been on outpatient course of antibiotics and felt that he was improving for a brief period of time but then progressively got worse. Vital signs on presentation showed a temperature of 97.7, heart rate 80, blood pressure initially was 95/46, respiratory rate was 16-26 and oxygen saturations were 94% on room air. CBC demonstrated a white count of 21,000 with a left shift. His chemistry was markedly abnormal with hyponatremia, hyperkalemia with potassium of 6.6, normal serum bicarb and anion gap however I do suspect his serum bicarb is low for him based on his body habitus and high suspicion for chronic CO2 retention. BUN was 112 and serum creatinine was 5.08. His baseline serum creatinine is between 0.9 and 1.2. His initial lactate was 2.4. His cardiac enzymes were cycled and found to be negative. His BNP was 3.9. MRSA PCR was negative. He was admitted to the ICU and started on broad-spectrum antibiotics after cultures were obtained. Blood cultures resulted quickly positive for Enterococcus faecalis. Wound cultures were polymicrobial. Infectious disease was following the patient and transition him from vancomycin and Zosyn to ampicillin. His blood pressure stabilized without pressure support and his white count had normalized and was 8.5 on the day of discharge. His renal function had trended down to 2.14 and his serum potassium normalized. On the a.m. of 11/17/2022 he reported bilateral lower extremity numbness and decreased ability to move his legs. He stated that he had a fall on Tuesday where he fell on his buttocks while trying to transfer and ambulate and was fine afterwards. On Tuesday evening prior to coming in he was sitting in his wheelchair and his spinal cord felt cramped per his description and he reported that he had progressively worsening symptoms since that point but unfortunately had not mentioned them until this time. At that time and emergent neuro consultation was placed by intensive care and we ordered a stat MRI of the lumbar spine. Teleneurology recommended stat neurosurgery consult. Unfortunately we were unable to get imaging done prior to discharge. I did discuss the case with the neuro critical care team and the orthospine surgeon at [facility] and they accepted him for transfer for evaluation. They were uncertain whether they would be able to do anything surgically as they felt that he was likely a poor candidate overall for any surgical intervention but were willing to evaluate him further for need. MRI will be proceeded with once he gets there for transfer as they were able to pick him up prior to us being able to perform his MRI prior to discharge. Wounds were noted on his foot and a foot x-ray was performed and podiatry evaluated the patient they did not find any need for ongoing debridement or any signs of osteomyelitis and recommended ongoing antibiotics. He was transferred to [facility] for further evaluation on 11/17/2022. This was discussed with the patient he voiced understanding. Discharge diagnoses: Sepsis Enterococcus bacteremia New onset paraplegia Bilateral lower extremity cellulitis DIVINA Hyperkalemia Lactic acidosis Hypoxia DM-2 Hypertension Osteoarthritis BATOOL Morbid obesity Physical Exam Const alert, oriented x3, no apparent distress and well nourished; Negative for average body habitus Constitutional Narrative: Super morbidly obese white male, sitting up in bed, nursing at bedside, patient appears comfortable and nontoxic, currently on room air General Appearance: cooperative, comfortable, well kempt and well developed Orientation / Consciousness: awake, oriented to person, oriented to place and oriented to time Exam Limitations: no limitations Nutritional Appearance: morbidly obese HEENT normocephalic, head/scalp atraumatic, hearing grossly normal bilaterally and moist oral mucous membranes HEENT Narrative: Mallampati 3-4, no thrush Eyes PERRL, EOMs intact bilaterally and conjunctivae normal Eyes Narrative: No scleral there is Neck no lymphadenopathy and supple Neck Narrative: Trachea midline, no thyroid enlargement, neck is very short and thick Resp normal respiratory effort, no retractions, no use of accessory muscles and clear to auscultation bilaterally Auscultation: Negative for rales, rhonchi or wheezes Cardio regular rate, regular rhythm, S1 normal heart sound, S2 normal heart sound, no murmurs, no rub, no gallops and no clicks GI normal to inspection, nondistended, normoactive bowel sounds, soft to palpation and non-tender GI Narrative: Large protuberant abdomen Extremity Extremity Narrative: Bilateral lower extremities with significant edema and erythema--> erythema is retracting and swelling has slightly improved, no cyanosis or clubbing Skin Skin Narrative: Lower extremities as noted above, has areas of open small wounds and blistering, also patchy erythematous areas consistent with cellulitis Neuro oriented x3, CN's II-XII intact bilaterally, No moves all extremities, No no focal motor deficits and No no sensory deficits noted Neuro Narrative: Patient with significantly decreased sensation bilateral lower extremities with complete paralysis of bilateral lower extremities today Speech: speech normal Psych affect normal Psych Narrative: Very pleasant, appropriate Weight / BMI Weight Weight: 166.1 kg Body Mass Index (BMI) 57.4 ABG / Lab / Microbiology Data 11/17/22 04:55 11/17/22 04:55 Laboratory: Laboratory Results - last 24 hr 11/16/22 16:12: POC Glucose 76 11/16/22 22:30: POC Glucose 91 11/17/22 04:55: WBC 8.5, RBC 3.12 L, Hgb 8.3 L, Hct 27.3 L, MCV 87.5, MCH 26.6 L , MCHC 30.4 L, RDW Std Deviation 47.3 H, RDW Coeff of Mary 14.8 H, Plt Count 283, MPV 9.6, Immature Gran % (Auto) 0.500, Neut % (Auto) 70.5 H, Lymph % (Auto) 15.7 L, [place] % (Auto) 11.9 H, Eos % (Auto) 1.2, Baso % (Auto) 0.2, Absolute Neuts (auto) 6.0, Absolute Lymphs (auto) 1.34, Nucleated RBC % 0, Sodium 137, Potassium 4.9, Chloride 104, Carbon Dioxide 27.0, Anion Gap 6, BUN 100 H, Creatinine 2.14 H, Estim Creat Clear Calc 36.46, Est GFR (MDRD) Af Amer 41 L, Est GFR (MDRD) Non-Af 34 L, BUN/Creatinine Ratio 46.7 H, Glucose 107 H, Calcium 7.8 L, Phosphorus 5.2 H, Magnesium 3.3 H, Total Bilirubin 0.40, AST 53 H, ALT 28, Alkaline Phosphatase 59, Total Protein 5.6 L, Albumin 2.0 L, Globulin 3.6, Albumin/Globulin Ratio 0.6 L, Urine Color Yellow, Urine Clarity Sl. Cloudy, Urine pH 6.0, Ur Specific [place] 1.015, Urine Protein 30 H, Urine Glucose (UA) Normal, Urine Ketones Negative, Urine Occult Blood 250 H, Urine Nitrite Negative, Urine Bilirubin Negative, Urine Urobilinogen Normal, Ur Leukocyte Esterase 500 H, Urine RBC 5-10 SEEN, Urine WBC 25-50 SEEN, Ur Squamous Epith Cells 0 SEEN, Urine Bacteria 2+, Urine Mucus 0 SEEN 11/17/22 07:25: POC Glucose 103 11/17/22 11:44: POC Glucose 115 H Microbiology: Microbiology 11/16/22 12:30 Wound - Left Foot Gram Stain - Final 11/16/22 12:30 Wound - Left Foot Wound Culture - Preliminary GNR Poss Pseudomonas sp Staphylococcus aureus Beta streptococcus 11/15/22 19:27 Blood Culture (Wb) - Left Hand Blood Culture - Final GPC Poss Enterococcus sp 11/15/22 18:35 Blood Culture (Wb) - Left Hand Bacteria Detection (PCR) - Final Enterococcus faecalis 11/15/22 18:35 Blood Culture (Wb) - Left Hand Blood Culture - Preliminary Enterococcus faecalis 11/17/22 04:55 Urine Catheter - Campbell Legionella Antigen - Final Radiography Diagnostic Testing: Radiology Impression Foot X-Ray 11/16/22 10:09 IMPRESSION: No radiographic evidence of osteomyelitis. Electronically Signed: Coy Juarez MD at 13:43 EDT , Meaningful Use Info Meaningful Use Diagnoses (Choose all that apply): None applicable Discharge Plan Admission Admit Date/Time: 11/15/22 20:32 Primary Reason for Your Visit: Bilateral lower extremity redness Attending Provider: Vanessa Matias Primary Care Provider: Wilma Thayer Consulting Providers: Florencio Greenfield; Michele Montes; Jewel Cm; Carlos Lacy; Alexei Marley Discharge Orders/Prescriptions Prescriptions: No Action oxycodone-acetaminophen 7.5-325 mg tablet 1 ea PO Q4H PRN (Reason: Pain) Patient Comments: ONE TABLET BY MOUTH EVERY 4 HOURS NEEDED FOR SEVERE PAIN diclofenac sodium 50 mg tablet,delayed release (DR/EC) 50 mg PO BID olmesartan-hydrochlorothiazide 40-25 mg tablet 1 ea PO DAILY Patient Comments: TAKE 1 TABLET BY MOUTH EVERY DAY tizanidine 4 mg tablet 1 ea PO TID PRN (Reason: Spasms) Patient Comments: 1 TABLET ORALLY 3 TIMES PER DAY NEEDED FOR MUSCLE SPASM/BACK PAIN propranolol 10 mg tablet 10 mg PO DAILY B-complex with vitamin C Tablet 1 tab PO DAILY cholecalciferol (vitamin D3) 50 mcg (2,000 unit) capsule 50 mcg PO DAILY ascorbate calcium (vitamin C) 500 mg tablet 500 mg PO DAILY zinc 50 mg tablet 50 mg PO DAILY calcium carbonate [Calcium 500] 500 mg calcium (1,250 mg) tablet 500 mg PO DAILY fluticasone propionate [Flonase Allergy Relief] 50 mcg/actuation spray,suspension 1 spray INTRANASAL DAILY Rx Instructions: administer into each nostril levocetirizine [24HR Allergy Relief] 5 mg tablet 5 mg PO DAILY Referrals / Follow Up: Wilma Thayer DO [Primary Care Provider] - Disposition Disposition (needs filled in before D/C Order can be placed): Acute Care Hospital Charges/Coding Visit Charges Inpatient E&M: 25467 Disch Hosp >30min
[2022-11-17] MEDS: Oxycodone/Apap 5/325 Tablet PO (13:48)
== END 2022-11-17 14:25 | disposition short-term general hospital (02) | DRG 871 ==
LOC: ED 18:55 → ICU 23:37
PROVIDERS: Internal Medicine; Admitting Provider Hospitalist; Emergency Provider Emergency Medicine; PCP Family Medicine; Visit Provider Internal Medicine
DX: A41.51 Sepsis due to Escherichia coli [E. coli] (principal); R65.21 Severe sepsis with septic shock; S34.101A Unspecified injury to L1 level of lumbar spinal cord, initial encounter; E87.1 Hypo-osmolality and hyponatremia; E87.20 Acidosis, unspecified; G82.20 Paraplegia, unspecified; N17.9 Acute kidney failure, unspecified; Z68.43 Body mass index [BMI] 50.0-59.9, adult; L97.229 Non-pressure chronic ulcer of left calf with unspecified severity; L03.115 Cellulitis of right lower limb; L03.116 Cellulitis of left lower limb; E11.42 Type 2 diabetes mellitus with diabetic polyneuropathy; D64.9 Anemia, unspecified; A41.59 Other Gram-negative sepsis; L97.509 Non-pressure chronic ulcer of other part of unspecified foot with unspecified severity; E66.01 Morbid (severe) obesity due to excess calories; Z79.4 Long term (current) use of insulin; E11.621 Type 2 diabetes mellitus with foot ulcer; I10 Essential (primary) hypertension; E87.5 Hyperkalemia; G47.33 Obstructive sleep apnea (adult) (pediatric); E78.00 Pure hypercholesterolemia, unspecified; M19.90 Unspecified osteoarthritis, unspecified site; I89.0 Lymphedema, not elsewhere classified; Z87.891 Personal history of nicotine dependence; R09.02 Hypoxemia; Z79.1 Long term (current) use of non-steroidal anti-inflammatories (NSAID); Z79.01 Long term (current) use of anticoagulants; Z86.16 Personal history of COVID-19
CPT/HCPCS: 71045; 73630; 80048; 80053; 81001; 82803; 82962; 83605; 83735; 83880; 84100; 84145; 84484; 85025; 85027; 87040; 87070; 87077; 87086; 87088; 87149; 87184; 87186; 87205; 87449; 87641; 93005; 93306; 93970; 94002; 94003; 94640; 94762; 97163; 97166; 99285; J7030; J7040; Q9957; A4216; J2405

== ENCOUNTER 2023-02-01 11:15 | Inpatient (IN) | payer OTHER, SELFPAY ==
[2023-02-01] VITALS (18 sets, daily range): BP systolic 68–157; BP diastolic 38–83; PULSE 73–99; RESP 11–18; TEMP 36.1–37.2; O2SAT 89–100; BMI 49.7; BMI 44.8
--- NOTE | 2023-02-01 11:29 | EX.ED.DYSGE1 ---
HPI <ASHLEY Daniels - Last Filed: 02/01/23 16:08> History of Present Illness Chief Complaint: Hypoglycemia Narrative Narrative: Patient is a 57-year-old male who is a paraplegic after mechanical fall November 2022. Past medical history of diabetes, hypertension hyperlipidemia, morbid obesity. Patient recently had a surgery in [place] on his back at a spine [employer] on 25 January which was last week. Today, the patient was altered, had a low blood sugar, and was not acting himself. Patient currently lives at home with his mother who is also ill and a couple of cousins that take care of him. Patient had a blood sugar in the mid to high 40s. Was given D50, and is now alert and oriented. Patient still diaphoretic, lethargic. Patient also has a wound to his lower back since December that they have been monitoring. Per the family it is getting worse. [facility] <ASHLEY Daniels - Last Filed: 02/01/23 16:08> [facility] Medical History (Updated 02/01/23 @ 16:08 by ASHLEY Daniels) Anemia BMI greater than 40 Former tobacco use H/o back surgery HTN (hypertension) Lymphedema BATOOL treated with BiPAP Paraplegia Type 2 diabetes mellitus Home Medications B-complex with vitamin C 1 tab PO DAILY 03/03/20 [History Last Taken Unknown] ascorbate calcium (vitamin C) 500 mg tablet 500 mg PO DAILY 03/03/20 [History Last Taken Unknown] calcium carbonate 500 mg calcium (1,250 mg) tablet (Calcium 500) 500 mg PO DAILY 03/03/20 [History Last Taken Unknown] cholecalciferol (vitamin D3) 50 mcg (2,000 unit) capsule 50 mcg PO DAILY 03/03/20 [History Last Taken Unknown] diclofenac sodium 50 mg tablet,delayed release 50 mg PO BID 03/03/20 [History Last Taken Unknown] fluticasone propionate 50 mcg/actuation nasal spray,suspension (Flonase Allergy Relief) 1 spray intranasal DAILY 03/03/20 [History Last Taken Unknown] levocetirizine 5 mg tablet (24HR Allergy Relief) 5 mg PO DAILY 03/03/20 [History Last Taken Unknown] olmesartan 40 mg-hydrochlorothiazide 25 mg tablet 1 ea PO DAILY 03/03/20 [History Last Taken Unknown] oxycodone-acetaminophen 7.5 mg-325 mg tablet 1 ea PO Q4H PRN Pain 03/03/20 [History Last Taken Unknown] propranolol 10 mg tablet 10 mg PO DAILY 03/03/20 [History Last Taken Unknown] tizanidine 4 mg tablet 1 ea PO TID PRN Spasms 03/03/20 [History Last Taken Unknown] zinc 50 mg tablet 50 mg PO DAILY 03/03/20 [History Last Taken Unknown] Allergy/AdvReac Type Severity Reaction Status Date / Time No Known Allergies Allergy Verified 11/15/22 18:01 Family History Mother Hypertension Hypotension Diabetes Arthritis Father Hypertension Hypotension Heart disease Status post double vessel coronary artery bypass angina Arthritis Grandfather Prostate cancer Grandmother Uterine cancer Surgical History (Updated 02/01/23 @ 13:[address] Terri Nino MD) H/O sinus surgery Hx of spinal surgery Social History household members: other details: parents current occupational status: employed and retired Smoking Status: Former smoker alcohol intake: never substance use type: does not use do you feel safe at home: Yes ROS <ASHLEY Daniels - Last Filed: 02/01/23 16:08> [facility] Narrative Constitutional: Negative for fever, chills, weight loss, weakness. Positive for hyperglycemia, lethargy Eyes: Negative for vision loss, vision change, double vision ENT: Negative for any sore throat, ear pain, congestion Cardiovascular: Negative for any chest pain, tightness, palpitations Respiratory: Negative for any cough, sputum production, hemoptysis, dyspnea, dyspnea on exertion, orthopnea Gastrointestinal: Negative for any abdominal pain, nausea, vomiting, diarrhea, constipation, blood in stool, blood in vomit : Negative for any urinary frequency, dysuria, retention, blood in urine Muscle skeletal: Negative for any muscle joint pain, stiffness, myalgias, arthralgias, neck pain. Positive for back pain Neurological: Negative for any headache, syncope, numbness or tingling, dizziness Skin: Negative for any rashes, lumps, itching, abrasions, lacerations. Positive for wound to the lower back Psychiatric: Negative for any depression, anxiety, stress, suicidal ideation, homicidal ideation Hematologic: Negative for any easy bruising, excessive bruising, easy bleeding Allergies: Negative for any eczema, hives, rash EXAM <ASHLEY Daniels - Last Filed: 02/01/23 16:08> Physical Exam Narrative Exam Narrative: Vital signs reviewed. Patient is lethargic however he is answering questions appropriately. He is alert and orient x4. Is able to explain about the surgeries. HEET: Head normocephalic atraumatic, TMs clear bilaterally. Posterior pharynx is clear, dry mucous membranes. Nares clear bilaterally. Neck: Supple with no lymphadenopathy or tenderness. No signs of meningismus, negative jolt sign. Cardiac: Tachycardic rate no murmurs gallops or rubs, equal peripheral pulses bilaterally. Respiratory: Patient has crackles to bilateral lungs. No chest tenderness. Abdomen: Soft, nontender, nondistended. No abdominal bruit or pulsatile masses. No hepatosplenomegaly Extremities: Patient has multiple areas of pressure sores to the posterior legs secondary to his paraplegia. These are mostly superficial wounds. Intermittent redness, no significant cellulitis. Neuro: Cranial nerves II through XII intact, no focal neurological deficits. Skin: Clean dry and intact with no rash, purpura, petechiae, vesicles or pustules. Patient has a significant wound to the lumbar spine, patient's right buttock is black, with foul-smelling odor, drainage. There are multiple open areas, along with eschar. This is a significant wound that ranges from his entire lower lumbar spine and extends all the way to the right buttock. Backs/flank: No CVA tenderness, no midline spinal tenderness, no deformity. Psych: Normal mood and affect. No SI, HI or acute psychosis. Const Vital Signs: 02/01/23 11:16 02/01/23 11:16 02/01/23 11:38 Temperature 97.3 F L Temperature Source Temporal Pulse Rate 73 Respiratory Rate 12 Respiratory Effort Normal Respiratory Pattern Normal Blood Pressure 101/52 L Blood Pressure Mean 68 Pulse Ox 89 Oxygen Delivery Method Room Air Room Air Oxygen Flow Rate (L/min) 02/01/23 12:20 02/01/23 13:48 02/01/23 14:32 Temperature 98.2 F 98.3 F 96.9 F L Temperature Source Temporal Temporal Temporal Pulse Rate 78 84 86 Respiratory Rate 12 13 13 Respiratory Effort Respiratory Pattern Blood Pressure 110/66 126/61 H 131/71 H Blood Pressure Mean 80 82 91 Pulse Ox 99 98 98 Oxygen Delivery Method Nasal Cannula Nasal Cannula Nasal Cannula Oxygen Flow Rate (L/min) 2 2 2 02/01/23 15:00 02/01/23 16:09 02/01/23 16:00 Temperature 97 F L 98.9 F Temperature Source Temporal Axillary Pulse Rate 86 88 88 Respiratory Rate 11 L 15 18 Respiratory Effort Respiratory Pattern Blood Pressure 104/71 123/73 H 127/73 H Blood Pressure Mean 82 89 91 Pulse Ox 97 100 100 Oxygen Delivery Method Nasal Cannula Nasal Cannula Oxygen Flow Rate (L/min) 2 3 02/01/23 16:38 Temperature 98.9 F Temperature Source Axillary Pulse Rate 90 Respiratory Rate 14 Respiratory Effort Respiratory Pattern Blood Pressure 127/73 H Blood Pressure Mean 91 Pulse Ox 100 Oxygen Delivery Method Nasal Cannula Oxygen Flow Rate (L/min) 3 Positive obese and unkempt General Appearance ED: unkempt Nutritional Appearance: obese Psych Appearance: unkempt <Dr. Lucian Beckett, DO - Last Filed: 02/01/23 16:57> Physical Exam Const Vital Signs: 02/01/23 11:16 02/01/23 11:16 02/01/23 11:38 Temperature 97.3 F L Temperature Source Temporal Pulse Rate 73 Respiratory Rate 12 Respiratory Effort Normal Respiratory Pattern Normal Blood Pressure 101/52 L Blood Pressure Mean 68 Pulse Ox 89 Oxygen Delivery Method Room Air Room Air Oxygen Flow Rate (L/min) 02/01/23 12:20 02/01/23 13:48 02/01/23 14:32 Temperature 98.2 F 98.3 F 96.9 F L Temperature Source Temporal Temporal Temporal Pulse Rate 78 84 86 Respiratory Rate 12 13 13 Respiratory Effort Respiratory Pattern Blood Pressure 110/66 126/61 H 131/71 H Blood Pressure Mean 80 82 91 Pulse Ox 99 98 98 Oxygen Delivery Method Nasal Cannula Nasal Cannula Nasal Cannula Oxygen Flow Rate (L/min) 2 2 2 02/01/23 15:00 02/01/23 16:09 02/01/23 16:00 Temperature 97 F L 98.9 F Temperature Source Temporal Axillary Pulse Rate 86 88 88 Respiratory Rate 11 L 15 18 Respiratory Effort Respiratory Pattern Blood Pressure 104/71 123/73 H 127/73 H Blood Pressure Mean 82 89 91 Pulse Ox 97 100 100 Oxygen Delivery Method Nasal Cannula Nasal Cannula Oxygen Flow Rate (L/min) 2 3 02/01/23 16:38 Temperature 98.9 F Temperature Source Axillary Pulse Rate 90 Respiratory Rate 14 Respiratory Effort Respiratory Pattern Blood Pressure 127/73 H Blood Pressure Mean 91 Pulse Ox 100 Oxygen Delivery Method Nasal Cannula Oxygen Flow Rate (L/min) 3 [facility] <Maninder Zapataclaire BODY PIERCER-C - Last Filed: 02/01/23 16:08> [facility] Lab Data Attestation: I reviewed the patient's lab results. Labs: Laboratory Results - last 24 hr 02/01/23 02/01/23 02/01/23 11:27 11:45 12:02 WBC 14.3 H RBC 4.12 L Hgb 9.6 L Hct 31.0 L MCV 75.2 L MCH 23.3 L MCHC 31.0 L RDW Std Deviation 52.5 H RDW Coeff of Mary 19.3 H Plt Count 337 MPV 9.7 Immature Gran % (Auto) 0.600 Neut % (Auto) 75.1 H Lymph % (Auto) 11.1 L [place] % (Auto) 11.8 H Eos % (Auto) 1.0 Baso % (Auto) 0.4 Absolute Neuts (auto) 10.8 H Absolute Lymphs (auto) 1.58 Nucleated RBC % 0 Diff Path Review September foll PT 14.8 INR 1.2 APTT 34.9 Sodium 127 L Potassium 3.6 Chloride 91 L Carbon Dioxide 30.0 Anion Gap 6 BUN 49 H Creatinine 0.75 Estim Creat Clear Calc 104.05 Est GFR (MDRD) Af Amer 139 Est GFR (MDRD) Non-Af 115 BUN/Creatinine Ratio 65.4 H Glucose 77 Lactic Acid 0.9 Calcium 8.4 L Total Bilirubin 0.40 AST 244 H ALT 62 H Alkaline Phosphatase 135 H Total Creatine Kinase 4735 H Troponin I High Sens 151 H* Total Protein 7.2 Albumin 2.4 L Globulin 4.8 H Albumin/Globulin Ratio 0.5 L Urine Color Yellow Urine Clarity Sl. Cloudy Urine pH 6.0 Ur Specific Kingsley 1.010 Urine Protein 15 H Urine Glucose (UA) Normal Urine Ketones Negative Urine Occult Blood 150 H Urine Nitrite Negative Urine Bilirubin Negative Urine Urobilinogen Normal Ur Leukocyte Esterase 500 H Urine RBC 0 SEEN Urine WBC >100 SEEN Ur Squamous Epith Cells 0 SEEN Urine Bacteria 0 SEEN Urine Mucus 0 SEEN POC Glucose 112 H 02/01/23 02/01/23 02/01/23 12:14 14:43 14:53 WBC RBC Hgb Hct MCV MCH MCHC RDW Std Deviation RDW Coeff of Mary Plt Count MPV Immature Gran % (Auto) Neut % (Auto) Lymph % (Auto) [place] % (Auto) Eos % (Auto) Baso % (Auto) Absolute Neuts (auto) Absolute Lymphs (auto) Nucleated RBC % Diff Path Review PT 14.5 INR 1.1 APTT 35.7 Sodium Potassium Chloride Carbon Dioxide Anion Gap BUN Creatinine Estim Creat Clear Calc Est GFR (MDRD) Af Amer Est GFR (MDRD) Non-Af BUN/Creatinine Ratio Glucose Lactic Acid Calcium Total Bilirubin AST ALT Alkaline Phosphatase Total Creatine Kinase Troponin I High Sens 146 H* Total Protein Albumin Globulin Albumin/Globulin Ratio Urine Color Urine Clarity Urine pH Ur Specific Kingsley Urine Protein Urine Glucose (UA) Urine Ketones Urine Occult Blood Urine Nitrite Urine Bilirubin Urine Urobilinogen Ur Leukocyte Esterase Urine RBC Urine WBC Ur Squamous Epith Cells Urine Bacteria Urine Mucus POC Glucose 77 76 ABG Data ABG results: ABG 02/01/23 12:35 Specimen Type ART Sample Site R Radial pH 7.37 Bicarbonate Actual 27.9 H Total CO2 29 Base Excess 3 H O2 Saturation 94 L O2 % 2.0 ABG pCO2 48.1 H ABG pO2 73 L Eliecer Test Positive O2 Delivery Device Cannula Vent Mode Not entered Radiography Diagnostic Testing: Clinical Impression(s) from Imaging Studies Chest CTA 02/01/23 11:39 IMPRESSION: Bilateral pulmonary emboli worse on the right side as described. Right lower lobe infiltrate and small right pleural effusion. Destruction of the T9 vertebrae with acute kyphotic deformity at the T9-T10 level with possible osteomyelitis. Electronically Signed: Meño Arrington MD at 14:48 EDT , Lumbar Spine CT 02/01/23 11:39 IMPRESSION: Acute kyphotic deformity at the T9-T10 level with almost complete collapse and destruction of the T9 vertebrae. Multilevel interpedicular screw and sharif fixation with multilevel disc space narrowing in the facet joint osteoarthritis. Electronically Signed: Meño Arrington MD at 14:40 EDT , Chest X-Ray 02/01/23 12:15 IMPRESSION: Right lower lobe infiltrate. Electronically Signed: Meño Arrington MD at 12:38 EDT , EKG Sinus rhythm: Attestation: I personally reviewed and interpreted this EKG as follows: Interpretation: Sinus Rhythm Comments: Sinus rhythm with first-degree AV block. Rate of 76 bpm, SC interval 244 ms, QRS duration 176 ms, no acute ST elevation, no acute infarct noted. Treatment and Re-Evaluation :: Patient is alert and oriented however lethargic secondary to hypoglycemia. Patient is a large obese male that is a paraplegic who comes to the emergency department with altered mental status postsurgery 1 week ago. Upon initial evaluation, I concern for septicemia. The patient received a full septic work-up 2 sets of blood cultures, lactic acid, CPK.. Patient will receive a CTA of the chest to rule out a pulmonary embolus, pneumonia, pneumothorax, pleural effusion secondary to recent surgery. Patient will receive a CT scan of the lumbar sacral spine, this will rule out any gas, deep tissue infection, osteomyelitis. Upon initial evaluation, the patient will need to be admitted to the hospital. The patient has no support at home, the patient needs [id number] care at this time. Patient will be started on IV vancomycin, IV Zosyn. He will be a close watch on the patient's blood sugar to ensure does not drop again. Patient remained alert and oriented, patient's blood glucose did decrease again to 77 needed another amp of D50. Patient remains alert and oriented, vital signs are stable on the 2 L of nasal cannula. Patient was given 2 doses of fentanyl for back pain. Patient's laboratory values showed elevated white blood count of 14.3, slight anemia at 9.6 with a hemoglobin. Patient's sodium is 127, creatinine 0.75 which is normal. Patient's AST and ALT are elevated 244 and 62. CPK was 4735, which 7 which shows rhabdomyolysis. Patient's troponins were initially 151, 146. Patient CT of the chest concerning for pulmonary embolus did show bilateral pulmonary emboli worse on the right side as described. Right lower lobe infiltrate and small right pleural effusion. Destruction of the T9 vertebrae with acute kyphotic deformity at the T9-T10 level with possible osteomyelitis. I spoke with the radiologist regarding this. Patient was placed on vancomycin, Zosyn. Patient chest x-ray does show right lower lobe infiltrate. At this time, patient has multiple illnesses. I spoke with the patient at length as well as the family. I did speak with the hospitalist to see if the patient is stable to be admitted here. <Dr. Lucian Beckett, DO - Last Filed: 02/01/23 16:57> [facility] Narrative Medical decision making narrative: I have personally performed a face to face assessment of the patient and have reviewed the ALFONSO Note. I performed a substantive portion of the visit including all aspects of the following. My fournire findings include: History: Presents with hypoglycemia that occurred today. Patient was noted to have a blood sugar of 49 by EMS. EMS administered 1 amp of D10. Patient's blood sugar improved to 171 after that. EMS reports they were initially called for shortness of breath. Patient had a recent back surgery and has had some wound complications from that. The patient has poor healing wounds to his right hip and buttock area. Family denies any fevers or chills. Patient has a history of paraplegia. Exam: Vital signs are stable. Patient is afebrile. Patient is in no acute distress. Oral mucosa is pink and somewhat dry. Heart was regular rate and rhythm. Lungs are clear and equal bilaterally. Abdomen is soft. Bowel sounds are normal. There is no tenderness. There is dark tissue around the right gluteal area with poor healing wounds. There is some mottling of the feet bilaterally. Medical Decision Making: Differential diagnosis includes sepsis, wound infection, electrolyte abnormality, kidney injury, though my lysis, cardiac dysrhythmia, cardiac ischemia, and urinary tract infection. CBC will be obtained to assess for leukocytosis or anemia. Comprehensive metabolic profile will be obtained to assess for electrolyte abnormality, hepatic function, and renal function. High-sensitivity troponin will be obtained to assess for cardiac ischemia. CPK will be obtained to assess for rhabdomyolysis. Urinalysis will be obtained to assess for urinary tract infection. Serum lactate will be obtained to assess for sepsis. Arterial blood gas will be obtained to assess for acidosis. EKG was obtained. On my independent interpretation, it shows a normal sinus rhythm with first-degree AV block with a rate of 76. There are no acute ST or T wave changes noted. CTA of the chest was obtained. There are bilateral pulmonary emboli noted, worse on the right. There is a right lower lobe infiltrate. This was interpreted by the radiologist and was also independently reviewed by myself. CT scan of the lumbar spine was obtained. There is kyphotic deformity at T9-T10 level with almost complete collapse and destruction of the T9 vertebrae. This was interpreted by the radiologist was also independently reviewed by myself. Portable 1 view chest x-ray was obtained. On my independent interpretation, lung fuentes show a right lower lobe infiltrate. There is normal cardiac silhouette. Bony thorax is normal. Radiologist also interpreted the x-ray and agrees. CBC was reviewed and shows a mild leukocytosis of 14.3. Hemoglobin was 9.6 and hematocrit was 31.0. Platelets were normal. PT was INR and PTT were reviewed and were essentially within normal limits. Comprehensive metabolic profile was reviewed. BUN was elevated at 49. Creatinine was normal at 0.75. Sodium was slightly low at 127. Chloride was 91. AST was slightly elevated at 244. ALT was slightly elevated at 62. Alkaline phosphatase was slightly elevated at 135. Total bilirubin was normal at 0.40. Lactate was reviewed and was normal at 0.9. Urinalysis was reviewed. Leukocyte esterase was 500 with greater than 100 white blood cells. High-sensitivity troponin was reviewed and was elevated at 146. Total CPK was reviewed and was elevated at 4735. Arterial blood gas was reviewed. pH was 7.37, PO2 was 73, PCO2 was 48, bicarb was 27.9, and oxygen saturation 94%. Patient was started on Zosyn and vancomycin. Patient was given IV fluids. Patient's blood sugar did drop again and was given a dose of D50. Because of the patient's elevated troponin, patient was started on heparin drip. Patient was given fentanyl as needed for pain. Case was discussed with the hospitalist. She will admit the patient to PCU. Patient and family understood and was agreeable with the plan. All questions were answered. Lab Data Labs: Laboratory Results - last 24 hr 02/01/23 02/01/23 02/01/23 11:27 11:45 12:02 WBC 14.3 H RBC 4.12 L Hgb 9.6 L Hct 31.0 L MCV 75.2 L MCH 23.3 L MCHC 31.0 L RDW Std Deviation 52.5 H RDW Coeff of Mary 19.3 H Plt Count 337 MPV 9.7 Immature Gran % (Auto) 0.600 Neut % (Auto) 75.1 H Lymph % (Auto) 11.1 L [place] % (Auto) 11.8 H Eos % (Auto) 1.0 Baso % (Auto) 0.4 Absolute Neuts (auto) 10.8 H Absolute Lymphs (auto) 1.58 Nucleated RBC % 0 Diff Path Review September foll PT 14.8 INR 1.2 APTT 34.9 Sodium 127 L Potassium 3.6 Chloride 91 L Carbon Dioxide 30.0 Anion Gap 6 BUN 49 H Creatinine 0.75 Estim Creat Clear Calc 104.05 Est GFR (MDRD) Af Amer 139 Est GFR (MDRD) Non-Af 115 BUN/Creatinine Ratio 65.4 H Glucose 77 Lactic Acid 0.9 Calcium 8.4 L Total Bilirubin 0.40 AST 244 H ALT 62 H Alkaline Phosphatase 135 H Total Creatine Kinase 4735 H Troponin I High Sens 151 H* Total Protein 7.2 Albumin 2.4 L Globulin 4.8 H Albumin/Globulin Ratio 0.5 L Urine Color Yellow Urine Clarity Sl. Cloudy Urine pH 6.0 Ur Specific Kingsley 1.010 Urine Protein 15 H Urine Glucose (UA) Normal Urine Ketones Negative Urine Occult Blood 150 H Urine Nitrite Negative Urine Bilirubin Negative Urine Urobilinogen Normal Ur Leukocyte Esterase 500 H Urine RBC 0 SEEN Urine WBC >100 SEEN Ur Squamous Epith Cells 0 SEEN Urine Bacteria 0 SEEN Urine Mucus 0 SEEN POC Glucose 112 H 02/01/23 02/01/23 02/01/23 12:14 14:43 14:53 WBC RBC Hgb Hct MCV MCH MCHC RDW Std Deviation RDW Coeff of Mary Plt Count MPV Immature Gran % (Auto) Neut % (Auto) Lymph % (Auto) [place] % (Auto) Eos % (Auto) Baso % (Auto) Absolute Neuts (auto) Absolute Lymphs (auto) Nucleated RBC % Diff Path Review PT 14.5 INR 1.1 APTT 35.7 Sodium Potassium Chloride Carbon Dioxide Anion Gap BUN Creatinine Estim Creat Clear Calc Est GFR (MDRD) Af Amer Est GFR (MDRD) Non-Af BUN/Creatinine Ratio Glucose Lactic Acid Calcium Total Bilirubin AST ALT Alkaline Phosphatase Total Creatine Kinase Troponin I High Sens 146 H* Total Protein Albumin Globulin Albumin/Globulin Ratio Urine Color Urine Clarity Urine pH Ur Specific [place] Urine Protein Urine Glucose (UA) Urine Ketones Urine Occult Blood Urine Nitrite Urine Bilirubin Urine Urobilinogen Ur Leukocyte Esterase Urine RBC Urine WBC Ur Squamous Epith Cells Urine Bacteria Urine Mucus POC Glucose 77 76 ABG Data ABG results: ABG 02/01/23 12:35 Specimen Type ART Sample Site R Radial pH 7.37 Bicarbonate Actual 27.9 H Total CO2 29 Base Excess 3 H O2 Saturation 94 L O2 % 2.0 ABG pCO2 48.1 H ABG pO2 73 L Eliecer Test Positive O2 Delivery Device Cannula Vent Mode Not entered Radiography Diagnostic Testing: Clinical Impression(s) from Imaging Studies Chest CTA 02/01/23 11:39 IMPRESSION: Bilateral pulmonary emboli worse on the right side as described. Right lower lobe infiltrate and small right pleural effusion. Destruction of the T9 vertebrae with acute kyphotic deformity at the T9-T10 level with possible osteomyelitis. Electronically Signed: Meño Arrington MD at 14:48 EDT , Lumbar Spine CT 02/01/23 11:39 IMPRESSION: Acute kyphotic deformity at the T9-T10 level with almost complete collapse and destruction of the T9 vertebrae. Multilevel interpedicular screw and sharif fixation with multilevel disc space narrowing in the facet joint osteoarthritis. Electronically Signed: Meño Arrington MD at 14:40 EDT , Chest X-Ray 02/01/23 12:15 IMPRESSION: Right lower lobe infiltrate. Electronically Signed: Meño Arrington MD at 12:38 EDT , <Dr. Lucian Beckett DO - Last Filed: 02/01/23 16:57> Critical Care Time Critical care time (excluding procedures): 30-74 minutes (39), Including time spent:, Discussing w/Patient &/or Family/Clam Grower, Discussing w/Consultants, Arranging Admission or Transfer and Performing Direct Patient Care at Bedside Discharge Plan Triage Chief Complaint: Hypoglycemia ED Midlevel Provider: Maninder Miller ED Provider: Lucian Beckett Dx/Rx/DC Orders Clinical Impression: Acute osteomyelitis of spine, Hypoglycemia, Community acquired pneumonia, Rhabdomyolysis, Hypoxia, Sepsis, Bilateral pulmonary embolism Prescriptions: No Action oxycodone-acetaminophen 7.5-325 mg tablet 1 ea PO Q4H PRN (Reason: Pain) Patient Comments: ONE TABLET BY MOUTH EVERY 4 HOURS NEEDED FOR SEVERE PAIN diclofenac sodium 50 mg tablet,delayed release (DR/EC) 50 mg PO BID olmesartan-hydrochlorothiazide 40-25 mg tablet 1 ea PO DAILY Patient Comments: TAKE 1 TABLET BY MOUTH EVERY DAY tizanidine 4 mg tablet 1 ea PO TID PRN (Reason: Spasms) Patient Comments: 1 TABLET ORALLY 3 TIMES PER DAY NEEDED FOR MUSCLE SPASM/BACK PAIN propranolol 10 mg tablet 10 mg PO DAILY B-complex with vitamin C Tablet 1 tab PO DAILY cholecalciferol (vitamin D3) 50 mcg (2,000 unit) capsule 50 mcg PO DAILY ascorbate calcium (vitamin C) 500 mg tablet 500 mg PO DAILY zinc 50 mg tablet 50 mg PO DAILY calcium carbonate [Calcium 500] 500 mg calcium (1,250 mg) tablet 500 mg PO DAILY fluticasone propionate [Flonase Allergy Relief] 50 mcg/actuation spray,suspension 1 spray INTRANASAL DAILY Rx Instructions: administer into each nostril levocetirizine [24HR Allergy Relief] 5 mg tablet 5 mg PO DAILY Primary Care Provider: Wilma Thayer Referrals: Wilma Thayer DO [Primary Care Provider] -
--- NOTE | 2023-02-01 11:38 | EKG12_ITS ---
Test Reason : Blood Pressure : / mmHG Vent. Rate : 076 BPM Atrial Rate : 076 BPM P-R Int : 244 ms QRS Dur : 176 ms QT Int : 454 ms P-R-T Axes : 061 -67 -14 degrees QTc Int : 510 ms Sinus rhythm with 1st degree A-V block Left axis deviation Right bundle branch block Abnormal ECG Confirmed by ESTEE BEVERLY, ANGIE ([id number]), editor news CHANDRA GABRIEL ([id number]) on 02/08/2023 10:12:52 AM Referred By: BUCK Confirmed By:VEE FONTANEZ MD
--- NOTE | 2023-02-01 11:39 | CT_ITS ---
STUDY: CT LUMBAR SPINE WITHOUT CONTRAST REASON FOR EXAM: Male, 57 years old. Decubitus ulcer. Patient is paraplegic. RADIATION DOSAGE (If Supplied By Facility): CTDIvol = ( 50.88 ) mGy, DLP = ( 2165.65 ) mGycm TECHNIQUE: The patient was scanned in a multi detector CT scanner. High resolution transaxial imaging was performed. Images were obtained from L1 to S1 vertebral level. Sagittal and coronal images were reconstructed. Individualized dose optimization techniques were used for this CT. COMPARISON: None FINDINGS: Normal lumbar lordosis. There is no substantial scoliosis. Acute kyphotic deformity at the T9-T10 level. Almost complete collapse and destruction of the T9 vertebrae. Interpedicular screw and sharif fixation are seen at the T9-T10 level. Demineralization of the lumbar vertebrae. L1-2: Moderate degree of disc space narrowing. The patient is status post laminectomy and interpedicular screw and sharif fixation. L2-3: Marked degree of disc space narrowing. Interpedicular screw fixation. Anterior fusion as well. L3-4: Moderate degree of disc space narrowing. Interpedicular screw and sharif fixation. L4-5: Status post intradiscal and sharif fixation. Disc space narrowing. L5-S1: Degenerative sclerotic fixation. Soft tissue swelling overlying the posterior surgical sites. Consolidation seen at the lung bases worse on the right side. CT/Spine Lumbar without Contrast IMPRESSION: Acute kyphotic deformity at the T9-T10 level with almost complete collapse and destruction of the T9 vertebrae. Multilevel interpedicular screw and sharif fixation with multilevel disc space narrowing in the facet joint osteoarthritis. Electronically Signed: Meño Arrington MD at 14:40 EDT ,
--- NOTE | 2023-02-01 11:39 | CT_ITS ---
STUDY: CTA CHEST REASON FOR EXAM: Male, 57 years old. Hypoxia. Patient is paraplegic. RADIATION DOSAGE (If Supplied By Facility): CTDIvol = ( 16.22 ) mGy, DLP = ( 461.89 ) mGycm TECHNIQUE: The examination was performed with the intravenous administration of IV 100mL [id number]-[id number]. Post-processing of the angiographic images was performed, with multiplanar reformation and 3D reconstruction. Individualized dose optimization techniques were used for this CT. COMPARISON: Comparison is made with prior chest radiograph done earlier in the day. FINDINGS: Multiple intraluminal filling defects are seen in branches of both right and left upper lobe pulmonary arteries. Intraluminal filling defects are also seen in the right interlobar artery as well as multiple branches in the right lower lobe. Normal thoracic aorta and visualized great vessels. There is no demonstrated aortic dissection. Normal heart and pericardium. Normal mediastinum. Normal hilar regions. Normal visualized trachea and bronchi. Right lower lobe consolidation. Small right pleural effusion. Normal pleura. Normal chest wall structures. Acute kyphotic deformity at the T9-T10 level. Almost complete destruction of the T9 vertebrae. Increased soft tissue density seen in the paraspinal region worse on the right side. Osteomyelitis should be ruled out. Multilevel interpedicular screw fixation. Soft tissue swelling overlying the operative site. Small amount of air is seen overlying the posterior aspect of the deep T9 and T10 vertebrae. This may represent a sinus communication. Normal visualized upper abdomen. CT/CTA Chest W/WO Contrast IMPRESSION: Bilateral pulmonary emboli worse on the right side as described. Right lower lobe infiltrate and small right pleural effusion. Destruction of the T9 vertebrae with acute kyphotic deformity at the T9-T10 level with possible osteomyelitis. Electronically Signed: Meño Arrington MD at 14:48 EDT ,
[2023-02-01 11:54] LABS: Bedside Glucose 112 mg/dL (74-106)
[2023-02-01 11:56] LABS: Absolute Lymphocyte Count 1.58 X10^3/uL (0.83-4.51); Absolute Neutrophil Count 10.8 X10^3/uL (2.0-7.7); Basophil# 0.05 X10^3/uL; Basophil% 0.4 % (0-1); Differential Indicated SCAN CRITERIA MET; Eosinophil# 0.14 X10^3/uL; Hemoglobin 9.6 g/dL (13.0-16.5); Lymphocyte # 1.58 X10^3/ul (0.83-4.51); Lymphocyte % 11.1 % (19-41); Mean Corpuscular Hgb 23.3 pg (27.0-32.0); Mean Corpuscular Volume 75.2 fL (80-94); Mean Platelet Vol. 9.7 fl (6.2-12.0); Monocyte# 1.68 X10^3/uL; Monocyte% 11.8 % (0-10); NRBC Flagged by Analyzer 0 % (0-5); Neutrophil # 10.75 X10^3/uL (2.7-7.7); Neutrophil % 75.1 % (47-70); POSITIVE DIFFERENTIAL YES; Platelet Count 337 K/mm3 (150-450); RBC Distribution Width CV 19.3 % (11.6-14.6); RBC Distribution Width SD 52.5 fl (35.1-43.9); Red Blood Count 4.12 M/mm3 (4.6-6.2); White Blood Count 14.3 K/mm3 (4.4-11.0)
[2023-02-01 12:06] LABS: International Normalized Ratio 1.2; Prothrombin Time (Protime)PT. 14.8 SECONDS (11.7-14.9)
[2023-02-01] MEDS: 0.9% Normal Saline (500mL Bag) 500 ML 999 ML IV (12:06)
[2023-02-01 12:07] LABS: Partial Thromboplast Time 34.9 Seconds (24.1-36.2)
[2023-02-01 12:15] LABS: Bacteria 0 SEEN /hpf (None Seen); Mucous, Urine 0 SEEN /hpf (<or=2+); Red Blood Cells-Urine 0 SEEN /hpf (0-5); Squamous Epithelial Cells - UA 0 SEEN /hpf (0-5)
--- NOTE | 2023-02-01 12:15 | RAD_ITS ---
STUDY: X-RAY CHEST REASON FOR EXAM: Male, 57 years old. Shortness of breath TECHNIQUE: Single AP portable view of the chest. COMPARISON: Comparison is made with prior study of November 15, 2002. FINDINGS: EKG electrodes are seen. Right lower lobe infiltrate. There is no demonstrated pleural abnormality. Normal size heart. Normal mediastinum and zhane. Normal visualized pulmonary arteries. There is atherosclerotic tortuosity of the aortic arch and descending thoracic aorta. Prior fusion in the lower thoracic and upper lumbar vertebrae. Normal visualized ribs, clavicles, and shoulders. There is no demonstrated abnormality of the visualized soft tissue structures of the upper abdomen. RAD/Chest 1 View (Portable) IMPRESSION: Right lower lobe infiltrate. Electronically Signed: Meño Arrington MD at 12:38 EDT ,
[2023-02-01 12:17] LABS: Color, Urine Yellow (Yellow); Glucose, Dipstick Normal (Normal); Ketone-Dipstick Negative (Negative); Leukocyte Esterase-Dipstick 500 /ul (Negative); Nitrite-Dipstick Negative (Negative); Occult Blood-Urine 150 /ul (Negative); Protein-Dipstick 15 mg/dl (Negative); Urine Bilirubin Dipstick Negative (Negative); Urine Clarity Sl. Cloudy (Clear); Urine Urobilinogen Normal (Normal)
[2023-02-01 12:22] LABS: White Blood Cells >100 SEEN /hpf (0-5)
[2023-02-01] MEDS: Dextrose 50%-Water 25 GM/50 ML DISP.SYRIN IV ×2 (12:25→21:01)
[2023-02-01 12:29] LABS: Lactic Acid 0.9 mmol/L (0.4-1.9)
[2023-02-01 12:32] LABS: Bedside Glucose 77 mg/dL (74-106)
[2023-02-01 12:33] LABS: ALB/GLOB Ratio 0.5 RATIO (0.9-2.4); AST(SGOT) 244 U/L (15-37); Alanine Aminotransfer ALT/SGPT 62 U/L (16-61); Albumin, Serum 2.4 g/dL (3.2-5.0); Alkaline Phosphatase 135 U/L (45-117); Anion Gap 6 (5-15); BUN 49 mg/dL (7-18); BUN/Creat Ratio 65.4 RATIO (10-20); CPK Total, Creatine Kinase 4735 U/L (39-308); Calcium,Total 8.4 mg/dL (8.5-10.1); Chloride 91 mmol/L (98-107); Creatinine, Serum 0.75 mg/dL (0.70-1.30); EST Glomerular Filtration Rate 115 mL/min (>60); Est Glom Filt Rate - Afr Amer 139 mL/min (>60); Estimated Creatinine Clearance 104.05 ml/min; Globulin 4.8 g/dL (2.2-4.2); Glucose 77 mg/dL (74-106); Potassium 3.6 mmol/L (3.5-5.1); Protein, Total 7.2 g/dL (6.4-8.2); Sodium Level 127 mmol/L (136-145); Troponin-I HS 151 pg/mL (3.0-78.0)
[2023-02-01] MEDS: Piperacil/Tazobactam 3.375 GM in 0.9% Normal Saline (50mL MB+) 50 ML IV ×2 (12:36→23:14)
[2023-02-01 12:38] LABS: Allen Test Positive; Base Excess 3 mmol/L (-2 to +2); Bicarbonate 27.9 mmol/L (22-26); Blood Gas Specimen Type ART; Mode Not entered; O2 Delivery Device Cannula; PO2 73 mmHG (75-100); SITE R Radial; SO2 94 % (95-99); Total Carbon Dioxide 29 mmol/L; pCO2 48.1 mmHg (35-45); pH 7.37 (7.35-7.45)
[2023-02-01] MEDS: Ondansetron 4 MG/2 ML Vial IV (13:18)
[2023-02-01] MEDS: fentaNYL 100 MCG/2 ML Ampul 50 MCG IV ×3 (13:19→18:11)
[2023-02-01] MEDS: Vancomycin HCl 2,000 MG in 0.9% Normal Saline (500mL Bag) 500 ML 250 MG IV (13:49)
[2023-02-01 15:04] LABS: Bedside Glucose 76 mg/dL (74-106)
--- NOTE | 2023-02-01 15:22 | PCM.HP.STD ---
HPI - General General Date of Admission: 02/01/23 Date of Service: 02/01/23 Chief Complaint: Low BP, altered mental status. HPI Narrative The patient is a 57 y/o M w/ PMHx: Former tobacco use, Morbid obesity, Chronic BL LE Lymphedema/PVD, Severe chronic back pain with nonambulatory status complicated by mechanical fall 11/2022 with unfortunate L1 injury and paraplegic status following, HTN, Allergic rhinitis, BATOOL on BIPAP who presents to the [facility] ED on 02/01/23 with history of spinal surgery in [place] 01/27/2023 with onset of lower blood sugars and altered mental status living at home alone however his mother and his cousins have been living with them with reported blood sugars in the mid to high 40s with D50 administered with improvement of mental status per report but ongoing diaphoresis and lethargy prompting ED evaluation. Patient of note with a chronic wound to the lower back reportedly since December that the family has been monitoring at home. Work-up in the ED included T97.3, heart rate 73, BP 101/52, respiratory rate 12, initially 89% on room air with improvement to 99% on 2 L nasal cannula, CBC with WBC 14.3, hemoglobin 9.6, MCV 75.2, platelet 337 with left shift, unremarkable coags, ABG with pH 7.37, bicarb 27.9, O2 saturation 94%, PCO2 48.1, PO2 73 on nasal cannula, CMP with sodium 127, chloride 91, BUN/creatinine 49/0.75, lactic acid 0.9, AST/ALT 244/62, alk phos 135, total creatinine kinase 4735, troponin 151, urinalysis noted to be cloudy, specific remedy 1.010, protein 15, 150 occult blood, negative nitrite, leukocyte Estrace 500 with greater than 100 urine WBCs although no urine bacteria noted, urine culture pending per ED, blood culture x2 pending per ED, chest x-ray with evidence of a right lower lobe infiltrate, chest CTA with bilateral pulm emboli worse in the right, right lower lobe infiltrate and small right pleural effusion, instruction of the T9 vertebrae as well as acute kyphotic deformity at T9-10 with questionable osteomyelitis, CT of the lumbar spine with acute kyphotic deformity at the T9-T10 level with almost complete collapse and distraction of the T9 vertebrae, multilevel interpedicular screw and sharif fixation with multilevel disc space narrowing in the facet joint osteoarthritis. In the ED patient ministered normal saline bolus, D50 water and, IV vancomycin, IV Zosyn, Zofran 4 mg IV x1, fentanyl 50 mcg IV x1 and eventually initiated on heparin drip. [facility], [facility] Medical History Anemia BMI greater than 40 Former tobacco use H/o back surgery HTN (hypertension) Lymphedema BATOOL treated with BiPAP Paraplegia Type 2 diabetes mellitus Home Medications B-complex with vitamin C 1 tab PO DAILY 03/03/20 [History Last Taken Unknown] ascorbate calcium (vitamin C) 500 mg tablet 500 mg PO DAILY 03/03/20 [History Last Taken Unknown] calcium carbonate 500 mg calcium (1,250 mg) tablet (Calcium 500) 500 mg PO DAILY 03/03/20 [History Last Taken Unknown] cholecalciferol (vitamin D3) 50 mcg (2,000 unit) capsule 50 mcg PO DAILY 03/03/20 [History Last Taken Unknown] diclofenac sodium 50 mg tablet,delayed release 50 mg PO BID 03/03/20 [History Last Taken Unknown] fluticasone propionate 50 mcg/actuation nasal spray,suspension (Flonase Allergy Relief) 1 spray intranasal DAILY 03/03/20 [History Last Taken Unknown] levocetirizine 5 mg tablet (24HR Allergy Relief) 5 mg PO DAILY 03/03/20 [History Last Taken Unknown] olmesartan 40 mg-hydrochlorothiazide 25 mg tablet 1 ea PO DAILY 03/03/20 [History Last Taken Unknown] oxycodone-acetaminophen 7.5 mg-325 mg tablet 1 ea PO Q4H PRN Pain 03/03/20 [History Last Taken Unknown] propranolol 10 mg tablet 10 mg PO DAILY 03/03/20 [History Last Taken Unknown] tizanidine 4 mg tablet 1 ea PO TID PRN Spasms 03/03/20 [History Last Taken Unknown] zinc 50 mg tablet 50 mg PO DAILY 03/03/20 [History Last Taken Unknown] Allergy/AdvReac Type Severity Reaction Status Date / Time No Known Allergies Allergy Verified 11/15/22 18:01 Family History Mother Hypertension Hypotension Diabetes Arthritis Father Hypertension Hypotension Heart disease Status post double vessel coronary artery bypass angina Arthritis Grandfather Prostate cancer Grandmother Uterine cancer Surgical History (Updated 02/01/23 @ 20:[address] Terri Nino MD) H/O sinus surgery Hx of spinal surgery Social History household members: other details: parents current occupational status: employed and retired Smoking Status: Former smoker alcohol intake: never substance use type: does not use do you feel safe at home: Yes ROS ROS Narrative Admission Review of Systems: CONSTITUTIONAL: No weight loss, fever, chills, + weakness or fatigue. HEENT: Eyes: No visual loss, blurred vision, double vision or yellow sclerae. Ears, Nose, Throat: No hearing loss, sneezing, congestion, runny nose or sore throat. SKIN: + Significant eschar to the posterior region, healing heel ulcers, various ecchymotic changes abrasions, bilateral lower extremity venous stasis skin changes. CARDIOVASCULAR: No chest pain, chest pressure or chest discomfort, palpitations, edema, orthopnea, syncopal events. RESPIRATORY: No shortness of breath, cough or sputum, wheezing, hemoptysis. GASTROINTESTINAL: + anorexia. No nausea, vomiting or diarrhea, abdominal pain, melena, BRBPR. GENITOURINARY: Chronic indwelling Campbell catheter. + No reported current dysuria. NEUROLOGICAL: + Lethargy, confusion, chronic significant debility with paraplegia and sensation decreases to the lumbar region and downward, no headache, dizziness, syncope, change in bowel or bladder control, seizure. MUSCULOSKELETAL: + muscle, back pain, joint pain or stiffness. HEMATOLOGIC: +anemia, easy bleeding or bruising. LYMPHATICS: No enlarged nodes. No history of splenectomy. PSYCHIATRIC: No history of depression or anxiety. ENDOCRINOLOGIC: No reports of sweating, cold or heat intolerance. No polyuria or polydipsia. ALLERGIES: No history of asthma, hives, eczema or rhinitis. Vital Signs Vital Signs Vital Signs: 02/01/23 11:16 02/01/23 11:16 02/01/23 11:38 Temperature 97.3 F L Temperature Source Temporal Pulse Rate 73 Respiratory Rate 12 Respiratory Effort Normal Respiratory Pattern Normal Blood Pressure 101/52 L Blood Pressure Mean 68 Pulse Ox 89 Oxygen Delivery Method Room Air Room Air Oxygen Flow Rate (L/min) 02/01/23 12:20 02/01/23 13:48 02/01/23 14:32 Temperature 98.2 F 98.3 F 96.9 F L Temperature Source Temporal Temporal Temporal Pulse Rate 78 84 86 Respiratory Rate 12 13 13 Respiratory Effort Respiratory Pattern Blood Pressure 110/66 126/61 H 131/71 H Blood Pressure Mean 80 82 91 Pulse Ox 99 98 98 Oxygen Delivery Method Nasal Cannula Nasal Cannula Nasal Cannula Oxygen Flow Rate (L/min) 2 2 2 02/01/23 15:00 Temperature 97 F L Temperature Source Temporal Pulse Rate 86 Respiratory Rate 11 L Respiratory Effort Respiratory Pattern Blood Pressure 104/71 Blood Pressure Mean 82 Pulse Ox 97 Oxygen Delivery Method Nasal Cannula Oxygen Flow Rate (L/min) 2 Weight Weight: 317 lb 7.45 oz Body Mass Index (BMI) 49.7 Physical Exam Narrative Physical Examination: General: Awake, alert, oriented to self, place and some recent events but very fatigued and lethargic, remains cooperative, laying in the ED bed, ill-appearing. Skin: Normal color, normal turgor, no icterus, no cyanosis except for significant various staged ecchymotic changes, bilateral lower extremity venous stasis skin changes, chronic right heel ulcer that is healing well, mild intertrigo, significant posterior lumbar and buttock right greater than left superficial eschar with no current purulent drainage or foul smell. HEENT: AT/NC, EOMI, PERRLA, dry MM, no carotid bruits or JVD noted; however, thickened neck makes evaluation difficult. Lungs: CTA bilaterally, moderate effort, mild decrease BL bases, no rales, ronchi or wheezing. Heart: Tachycardic with regular rhythm; no gallop, rub audible. Abdomen: Soft, morbidly obese, NTTP, distant BS, difficult to assess distention and HSM given habitus. Extremities: No cyanosis, no clubbing, significant bilateral lower extremity lymphedema with bilateral lower extremity stasis skin changes noted. Neurological: Patient awake, alert, oriented as noted, cognitive function improving but still not baseline intact; pupils equally reactive to light and accommodation, cranial nerves grossly normal, paraplegic with decreased sensation to lower extremities chronically, strength severely globally decreased secondary to acute presentation complicated by underlying history. Psychiatric: Affect appears flat, fatigued, ill-appearing, no acute evidence of depressive or anxiety feelings. Results Lab / Micro Data 02/01/23 11:45 02/01/23 11:45 Labs: Laboratory Results - last 24 hr 02/01/23 11:27: POC Glucose 112 H 02/01/23 11:45: WBC 14.3 H, RBC 4.12 L, Hgb 9.6 L, Hct 31.0 L, MCV 75.2 L, MCH 23.3 L, MCHC 31.0 L, RDW Std Deviation 52.5 H, RDW Coeff of Mary 19.3 H, Plt Count 337, MPV 9.7, Immature Gran % (Auto) 0.600, Neut % (Auto) 75.1 H, Lymph % (Auto) 11.1 L, [place] % (Auto) 11.8 H, Eos % (Auto) 1.0, Baso % (Auto) 0.4, Absolute Neuts (auto) 10.8 H, Absolute Lymphs (auto) 1.58, Nucleated RBC % 0, Diff Path Review September, PT 14.8, INR 1.2, APTT 34.9, Sodium 127 L, Potassium 3.6, Chloride 91 L, Carbon Dioxide 30.0, Anion Gap 6, BUN 49 H, Creatinine 0.75, Estim Creat Clear Calc 104.05, Est GFR (MDRD) Af Amer 139, Est GFR (MDRD) Non-Af 115, BUN/Creatinine Ratio 65.4 H, Glucose 77, Lactic Acid 0.9, Calcium 8.4 L, Total Bilirubin 0.40, AST 244 H, ALT 62 H, Alkaline Phosphatase 135 H, Total Creatine Kinase 4735 H, Troponin I High Sens 151 H*, Total Protein 7.2, Albumin 2.4 L, Globulin 4.8 H, Albumin/Globulin Ratio 0.5 L 02/01/23 12:02: Urine Color Yellow, Urine Clarity Sl. Cloudy, Urine pH 6.0, Ur Specific Wrights 1.010, Urine Protein 15 H, Urine Glucose (UA) Normal, Urine Ketones Negative, Urine Occult Blood 150 H, Urine Nitrite Negative, Urine Bilirubin Negative, Urine Urobilinogen Normal, Ur Leukocyte Esterase 500 H, Urine RBC 0 SEEN, Urine WBC >100 SEEN, Ur Squamous Epith Cells 0 SEEN, Urine Bacteria 0 SEEN, Urine Mucus 0 SEEN 02/01/23 12:14: POC Glucose 77 02/01/23 14:43: POC Glucose 76 Micro: Microbiology 02/01/23 12:16 Mucosa - Nasopharyngeal Respiratory Panel (PCR) - Final ABG Data ABG results: ABG 02/01/23 12:35 Specimen Type ART Sample Site R Radial pH 7.37 Bicarbonate Actual 27.9 H Total CO2 29 Base Excess 3 H O2 Saturation 94 L O2 % 2.0 ABG pCO2 48.1 H ABG pO2 73 L Eliecer Test Positive O2 Delivery Device Cannula Vent Mode Not entered Radiology Impression Chest CTA 02/01/23 11:39 IMPRESSION: Bilateral pulmonary emboli worse on the right side as described. Right lower lobe infiltrate and small right pleural effusion. Destruction of the T9 vertebrae with acute kyphotic deformity at the T9-T10 level with possible osteomyelitis. Electronically Signed: Meño Arrington MD at 14:48 EDT , Lumbar Spine CT 02/01/23 11:39 IMPRESSION: Acute kyphotic deformity at the T9-T10 level with almost complete collapse and destruction of the T9 vertebrae. Multilevel interpedicular screw and sahrif fixation with multilevel disc space narrowing in the facet joint osteoarthritis. Electronically Signed: Meño Arrington MD at 14:40 EDT , Chest X-Ray 02/01/23 12:15 IMPRESSION: Right lower lobe infiltrate. Electronically Signed: Meño Arrington MD at 12:38 EDT , Assessment & Plan Assessment/Plan (1) Bilateral pulmonary embolism: PLAN: Plan The patient is a 57 y/o M w/ PMHx: Former tobacco use, Morbid obesity, Chronic BL LE Lymphedema/PVD, Severe chronic back pain with nonambulatory status complicated by mechanical fall 11/2022 with unfortunate L1 injury and paraplegic status following, HTN, Allergic rhinitis, BATOOL on BIPAP who presents to the [facility] ED on 02/01/23 with history of spinal surgery in [place] 01/27/2023 with onset of lower blood sugars and altered mental status living at home alone however his mother and his cousins have been living with them with reported blood sugars in the mid to high 40s with D50 administered with improvement of mental status per report but ongoing diaphoresis and lethargy prompting ED evaluation. #1. Acute Encephalopathy, Multifactorial, secondary to Acute Hypoxia and ABG evidence Hypercarbia secondary to Acute RLL Pneumonia complicated by underlying BATOOL likely as noted, possible Aspiration Component as well as BL pulmonary emboli (R>L) likely secondary to recent significant immobility in addition to #2-#9: Will admit to PCU, maintain on oxygen with wean as tolerated to room air, PRN albuterol, maintained on IV Zosyn and Vancomycin with pending MRSA screen with de-escalation of antibiotic therapy pending results as well as #2 and #3, will maintain on heparin drip for BL PE likely secondary to immobility secondary to recent surgery and issues with paraplegia, HOB, IS parameters w/ pending sputum cultures, full respiratory viral panel and urine antigens. Bld cx x 2 obtained in the ED. PT/OT/ST consultations as well as CM for discharge planning. #2. Severe chronic back pain with nonambulatory status complicated by recent history of fall with L1 spinal injury with resulting paraplegic status following status post recent spinal surgery 01/27/2023 in [place] with questionable osteomyelitis: Complicates presentation, will maintain on fall and aspiration precautions, frequent positional changes, offloading, PT/OT/case management consulted for discharge planning. From review of records 11/17/2022 neuro consultation with lower extremity significant debility worsened from prior with inability to move his legs aside from slight movement in the toes with decreased sensation concurrently with CT of the lumbar spine with mild degree of central canal stenosis L2-3 and L3-4 with bilateral neural foraminal stenosis status post L4-5 laminectomy and interpedicular screw fixation with recommendation for stat MRI lumbar and thoracic spine and neurosurgery evaluation if appropriate versus local neurology evaluation. Dr. Lacy was contacted per record review. Given acute presentation and findings on CT imaging we will continue broad-spectrum antibiotic therapy with IV Comycin and IV Zosyn with MRI of the lumbar and thoracic spine with contrast requested. Currently thoracic region with still andrade in place which reportedly are supposed to be removed 14 days and currently incisional region is well-appearing of note. #3. Notable posterior buttock right greater than left in the lumbar back region eschar secondary to suspected unfortunate injury with heating pad and complicated by paraplegic status with poor mobility: Notable findings on evaluation although no obvious macerated regions or draining wounds, will request plastic surgery evaluation to be cautious, encourage offloading, barrier interventions as able, maintained as noted on broad-spectrum antibiotic therapy with IV vancomycin and IV Zosyn, wound RN consulted. #4. Questionable Acute Urinary Tract Infection with chronic indwelling catheter, suspect likely chronic colonization: Urinalysis noted to be cloudy with 150 occult blood, negative nitrite however leukocyte Estrace 500 and urine WBCs greater than 100 although no marked urine bacteria, urine culture is pending, maintained on antibiotic therapy given acute presentation with also concurrent right lower lobe infiltrate is noted with pneumonia, urine culture will be pending and certainly if significant growth may alter antibiotic therapy to cover both. #5. Acute NSTEMI, suspect likely demand secondary to acute infectious presentation as noted above: EKG in ED w/ [], CXR w/ right lower lobe infiltrate at the. Trop elevated, 151. Will maintain on a monitored bed, continue serial cardiac enzymes and EKGs. Obtain magnesium level upon admission. Start Heparin drip. Continue medical management. ECHO requested. Pending enzyme rise given suspected demand may consider cardiology involvement. ASA, NG, morphine. #6. Acute rhabdomyolysis: Admission total creatinine kinase 4735, will continue aggressive hydration while continuing to monitor respiratory status, will trend total creatinine kinase as well as renal function and liver function. #7. Acute transaminitis: Admission AST/ALT 244/62 suspected likely related with his acute infectious presentation and rhabdomyolysis, will continue treatments as noted, trend CMP. #8. Acute hypoglycemia with diabetes mellitus type II: Likely secondary to his acute infectious presentation as noted and possibly poor intake related, will hold all diabetic regimen although currently clarifying as no regimen listed, will maintain on aggressive Accu-Chek assessments with hypoglycemic protocol as needed and once appropriate may add back regimen however if decreases further low threshold to add dextrose IV fluids, hemoglobin A1c requested. #9. Acute on chronic hyponatremia: Likely secondary to poor intake and acute presentation as noted, admission sodium 127, baseline prior had been as low as 126 during a prior admission but again this was acute phase and patient was clinically ill during that presentation, prior to this baseline appears 1 33-1 34, will judiciously hydrate as noted and repeat CMP. #10. Chronic microcytic anemia: Admission hemoglobin 9.6, MCV 75.2 baseline appears similar with most recent prior to this 11/17/2022 hemoglobin 8.3, from current list does not appear to be on any iron supplementation, will obtain iron panel, ferritin and guaiac. #11. Left great toe wound: Debrided while inpatient with 11/15/2022 admission, following with Dr. Marley, encourage continued follow-up. #12. Hypertension: Given low normal BP in the setting will temporally hold oral regimen but may add back once clinically appropriate. #13. Chronic bilateral lower extremity lymphedema, PVD: We will place snug mazin wraps with lower extremity elevation. #14. Morbid Obesity: Weight loss and lifestyle changes encouraged. #15. Allergic rhinitis: We will temporarily hold patient home levocetirizine and fluticasone nasal spray. #16. Former tobacco use: Encourage continued tobacco cessation. #17. BATOOL: BiPAP nightly per chart history however if there is any concern about aspiration as noted pending ST evaluation low threshold to hold temporarily. #18. DVT prophylaxis: Heparin drip. #19. CODE status: Patient HCPOA and living will and not in place but he notes that he would prefer his mother and the sister to be his decision-maker if he was unable. Discussed CODE status at length including difference between FULL code, DNR-CCA and DNR-CC status. Following discussions about the differences in these status, requested Full Code status. Discussed his precarious medical position with significant acute issues. Advanced Care Planning Face to Face Time: 16 minutes. Charges/Coding Visit Charges Inpatient E&M: 95024 Init Hosp L3 Procedures Hospitalists Procedures: 44131 Advncd Care Plan 30 Min
[2023-02-01 15:24] LABS: International Normalized Ratio 1.1; Prothrombin Time (Protime)PT. 14.5 SECONDS (11.7-14.9)
[2023-02-01 15:25] LABS: Partial Thromboplast Time 35.7 Seconds (24.1-36.2)
[2023-02-01 15:51] LABS: Troponin-I HS 146 pg/mL (3.0-78.0)
[2023-02-01] MEDS: Heparin Injection (Vial) 5,000 UNIT/ML VIAL 11000 UNIT IV (16:28)
[2023-02-01] MEDS: HEPARIN/D5w 25,000 UNITS 25,000 UNITS/250 ML IV.SOLN. 18 UNITS CONT INF (16:28)
--- NOTE | 2023-02-01 19:39 | ECHOCS_ITS ---
Reason For Study: NSTEMI Procedure This was a limited 2D transthoracic echocardiogram. The study was technically difficult. Contrast injection was performed. Exam performed portable in patient room. Left Ventricle Normal LV size. The estimated ejection fraction is 65 %. Unable to assess diastolic dysfunction. No regional wall motion abnormalities noted. Right Ventricle Normal RV size. Normal systolic function. Atria Normal left atrium. Normal right atrium. No doppler evidence for ASD. Mitral Valve There is moderate mitral annular calcification. There is no mitral valve stenosis. No mitral valve insufficiency. Tricuspid Valve There is no tricuspid stenosis. Unable to estimate RV systolic pressure due to insufficient tricuspid regurgitant envelope. Trivial tricuspid valve insufficiency. Aortic Valve Aortic sclerosis, no stenosis. There is no aortic stenosis. No aortic valve insufficiency. Pulmonic Valve There is no pulmonic valvular stenosis. No pulmonic valve insufficiency. Great Vessels Normal aortic root. Pericardium/Pleural No pericardial effusion. Medication Diluted definity 2.5ml given slow IV push to enhance endocardial definition. MMode/2D Measurements & Calculations LVIDd: 4.9 cm IVSd: 1.5 cm LAV(MOD-sp4): 46.4 ml LVIDs: 3.3 cm LVPWd: 2.0 cm FS: 33.3 % LA A4 area: 17.1 cm2 LA dimension(2D): 4.6 cm RA A4 area: 15.6 cm2 ECHO/Echo Complete W/ Contrast Interpretation Summary The estimated ejection fraction is 65 %. Unable to assess diastolic dysfunction. Ordering Physician: Terri Nino Referring Physician: Wilma Thayer Performed By: Widder, Char, RCS
[2023-02-01 20:00] LABS: Ferritin 1289 ng/mL (26-388); Iron 19 ug/dL (65-175); Iron Binding Capacity,Total 250 ug/dL (250-450); Magnesium 2.4 mg/dL (1.6-2.6); PERCENT IRON SATURATION 7.6 % (15.0-55.0); Phosphorus 4.2 mg/dL (2.5-4.9)
--- NOTE | 2023-02-01 20:09 | PCM.RX.CS ---
Consult Antibiotic Management Pharmacy has been consulted to manage selected antiobiotic: Vancomycin Type of Intervention Type of Consult: New start Suspected Infection Suspected Infection: Pneumonia Labs Labs: Sodium 127 mmol/L (136-145) L 02/01/23 11:45 Potassium 3.6 mmol/L (3.5-5.1) 02/01/23 11:45 Chloride 91 mmol/L (98-107) L 02/01/23 11:45 Carbon Dioxide 30.0 mmol/L (21.0-32.0) 02/01/23 11:45 Anion Gap 6 (5-15) 02/01/23 11:45 BUN 49 mg/dL (7-18) H 02/01/23 11:45 Creatinine 0.75 mg/dL (0.70-1.30) 02/01/23 11:45 Est GFR (MDRD) Af Amer 139 mL/min (>60) 02/01/23 11:45 Est GFR (MDRD) Non-Af 115 mL/min (>60) 02/01/23 11:45 BUN/Creatinine Ratio 65.4 RATIO (10-20) H 02/01/23 11:45 Glucose 77 mg/dL (74-106) 02/01/23 11:45 Microbiology Microbiology: Microbiology 02/01/23 12:16 Mucosa - Nasopharyngeal Respiratory Panel (PCR) - Final Dosing Weight Weight used for dosin kg Estimated Creatinine Clearance Estimated Creatinine Clearance: 153mls/min Pharmacy Plan for Drug Dosing Pharmacy Plan for Drug Dosing: NEW START IV VANCOMYCIN Consulting Physician: Dr. Nino Indication: PNA Goal Trough: 15-20 SrCr: 0.75 CrCl: 153mls/min (using an adjusted body weight of 97.3kg) Comments: pt received a 2000mg dose of Vancomycin in the ER on 02/01/23 at 1349 Vancomycin Dose: based on pts weight and renal function, recommend an initial dose of 1500mg q8h starting 02/01/23 at 2200. Trough prior to the 4th total dose Pending Level: 02/02/23 at 1330 Pharmacy Service will continue to monitor and adjust dosing as required. Follow-Up Labs Follow-Up Labs: Trough: Vancomycin (02/02/23 at 1330)
[2023-02-01] MEDS: 0.9% Normal Saline (1000mL) 1,000 ML 150 ML IV (20:44)
[2023-02-01 21:45] LABS: Bedside Glucose 73 mg/dL (74-106)
[2023-02-01 21:45] LABS: Bedside Glucose 35 mg/dL (74-106)
[2023-02-01 22:10] LABS: Bedside Glucose 87 mg/dL (74-106)
[2023-02-01 23:01] LABS: Troponin-I HS 128 pg/mL (3.0-78.0)
[2023-02-01] MEDS: oxyCODONE 5 MG Tablet 10 MG PO (23:04)
[2023-02-01] MEDS: Vancomycin HCl 1,500 MG in 0.9% Normal Saline (500mL Bag) 500 ML 250 MG IV (23:07)
[2023-02-01] MEDS: Miconazole Nitrate 43 GM Bottle 1 APPLIC TOPICAL (23:12)
[2023-02-01] MEDS: Menthol/Lanolin/Calamine/Znox 113 GM Tube 1 APPLIC TOPICAL ×2 (23:12→23:18)
[2023-02-01] MEDS: Acetaminophen 500 MG Tablet 1000 MG PO (23:15)
[2023-02-01] MEDS: tiZANidine HCl 2 MG Tablet 1 MG PO (23:16)
[2023-02-02] VITALS (7 sets, daily range): BP systolic 104–128; BP diastolic 60–74; PULSE 84–90; RESP 16–18; TEMP 36.4–36.8; O2SAT 93–100; BMI 42.5
[2023-02-02 00:15] LABS: Partial Thromboplast Time 88.4 Seconds (24.1-36.2)
[2023-02-02 00:23] LABS: Troponin-I HS 123 pg/mL (3.0-78.0)
[2023-02-02 02:18] LABS: Bedside Glucose 81 mg/dL (74-106)
--- NOTE | 2023-02-02 03:39 | PCM.HOSP.N ---
Hospitalist Note Received message from nursing staff earlier this evening that patient had continued drowsiness and poor responsiveness on arrival to the floor after transfer from the ED. Blood glucose was in the 80s at that time. Patient notably had blood gas drawn in the ED that was normal. Patient had spontaneous improvement in mentation after about 30 minutes to 1 hour from original message. At that time, patient reported back pain and worsening of his known upper extremity tremors. Patient's home medications have been held on admission, as there was concern that he could not swallow pills due to his altered mentation. Restarted patient's home oxycodone and tizanidine. Can consider restarting other home medications for patient as needed.
[2023-02-02 04:01] LABS: Absolute Lymphocyte Count 2.05 X10^3/uL (0.83-4.51); Basophil# 0.08 X10^3/uL; Basophil% 0.5 % (0-1); Eosinophil# 0.12 X10^3/uL; Eosinophils% 0.8 % (0-5); Hemoglobin 8.3 g/dL (13.0-16.5); Lymphocyte # 2.05 X10^3/ul (0.83-4.51); Lymphocyte % 13.1 % (19-41); Mean Corp Hgb Conc 29.6 g/dL (32-36); Mean Corpuscular Hgb 22.9 pg (27.0-32.0); Mean Corpuscular Volume 77.3 fL (80-94); Mean Platelet Vol. 9.6 fl (6.2-12.0); Monocyte# 1.34 X10^3/uL; Monocyte% 8.5 % (0-10); NRBC Flagged by Analyzer 0 % (0-5); Neutrophil # 12.04 X10^3/uL (2.7-7.7); Neutrophil % 76.7 % (47-70); Platelet Count 358 K/mm3 (150-450); RBC Distribution Width CV 19.2 % (11.6-14.6); Red Blood Count 3.62 M/mm3 (4.6-6.2); White Blood Count 15.7 K/mm3 (4.4-11.0)
[2023-02-02 04:19] LABS: Troponin-I HS 156 pg/mL (3.0-78.0)
[2023-02-02 04:55] LABS: ALB/GLOB Ratio 0.5 RATIO (0.9-2.4); AST(SGOT) 163 U/L (15-37); Alanine Aminotransfer ALT/SGPT 55 U/L (16-61); Albumin, Serum 2.1 g/dL (3.2-5.0); Alkaline Phosphatase 122 U/L (45-117); Anion Gap 6 (5-15); BUN 40 mg/dL (7-18); BUN/Creat Ratio 56.2 RATIO (10-20); CPK Total, Creatine Kinase 2416 U/L (39-308); Calcium,Total 8.2 mg/dL (8.5-10.1); Chloride 97 mmol/L (98-107); Cholesterol 123 mg/dL (200); Creatinine, Serum 0.71 mg/dL (0.70-1.30); EST Glomerular Filtration Rate 122 mL/min (>60); Est Glom Filt Rate - Afr Amer 147 mL/min (>60); Estimated Creatinine Clearance 129.03 ml/min; Globulin 4.4 g/dL (2.2-4.2); Glucose 57 mg/dL (74-106); High Density Lipoprotein 26 mg/dL; Potassium 3.8 mmol/L (3.5-5.1); Protein, Total 6.5 g/dL (6.4-8.2); Sodium Level 133 mmol/L (136-145); Triglycerides 154 mg/dL; Very Low Density Lipoprotein 31 mg/dL (5-40)
[2023-02-02] MEDS: Vancomycin HCl 1,500 MG in 0.9% Normal Saline (500mL Bag) 500 ML 250 MG IV (05:22)
[2023-02-02] MEDS: Acetaminophen 500 MG Tablet 1000 MG PO ×3 (06:01→21:10)
[2023-02-02] MEDS: oxyCODONE 5 MG Tablet 10 MG PO ×3 (06:02→20:45)
[2023-02-02] MEDS: Dextrose 50%-Water 25 GM/50 ML DISP.SYRIN IV ×3 (06:09→14:11)
[2023-02-02 07:03] LABS: Bedside Glucose 124 mg/dL (74-106)
[2023-02-02 07:03] LABS: Bedside Glucose 34 mg/dL (74-106)
[2023-02-02 07:06] LABS: Partial Thromboplast Time 77.7 Seconds (24.1-36.2)
[2023-02-02] MEDS: Piperacil/Tazobactam 3.375 GM in 0.9% Normal Saline (50mL MB+) 50 ML IV (08:25)
[2023-02-02] MEDS: 0.9% Saline Lock 10 ML Syringe IV ×3 (08:26→14:11)
[2023-02-02 08:36] LABS: M R Staph aureus DNA By PCR Negative (Negative); Probe Check PASS; Specimen Processing Control PASS
[2023-02-02] MEDS: Aspirin 81 MG TAB.CHEW PO (08:51)
[2023-02-02] MEDS: Miconazole Nitrate 43 GM Bottle 1 APPLIC TOPICAL ×2 (08:51→21:11)
[2023-02-02] MEDS: Multivitamins,Ther W-Minerals Tablet 1 TABLET PO (08:51)
[2023-02-02] MEDS: Menthol/Lanolin/Calamine/Znox 113 GM Tube 1 APPLIC TOPICAL ×3 (08:52→21:11)
[2023-02-02 09:32] LABS: Hemoglobin A1c 5.6 % (3.8-5.6)
--- NOTE | 2023-02-02 11:11 | CON.PCM_ITS ---
Assessment & Plan Assessment/Plan (1) Pressure injury, unstageable, with eschar: PLAN: * Control of drainage Alginate dressing Frequent replacement of dry dressings beneath pt. * Prevent/control cellulitis Suggest using Silvadene in the peripheral areas that are currently partial thickness Will need to asses hygiene issues with wound proximity to rectum * Obese status, insensate area Off load the area to prevent further damage in light of insensate status Consider air-fluidized therapy bed ([place]) to offload and control drainage PLAN: Plan HPI Consult Data Date of Consult: 02/02/23 HPI Narrative Reason for Consultation: Buttock/back wound HPI Narrative: The pt is a 57 y/o male who was living at home prior to this admission. Review of his medical record reveals a previous hospitalization in November without mention of the back/buttock wound. He states he is insensate in his lower extremities. He had back surgery in [place] within the last 2 weeks. He traveled to [place] by car. He was transported to the ER for change in mental status where he was found to have the buttock wound among multiple other issues. His medical history is significant for obesity, DM, and former smoker. Labs of note: Hgb 8.8, and WBC 15.7. [facility] Medical History (Updated 02/02/23 @ 12:[address] Calista Aburto MD) Anemia BMI greater than 40 Former tobacco use H/o back surgery HTN (hypertension) Lymphedema BATOOL treated with BiPAP Paraplegia Type 2 diabetes mellitus Home Medications B-complex with vitamin C 1 tab PO DAILY supplement 03/03/20 [History Last Taken Unknown] ascorbate calcium (vitamin C) 500 mg tablet 500 mg PO DAILY supplement 03/03/20 [History Last Taken Unknown] calcium carbonate 500 mg calcium (1,250 mg) tablet (Calcium 500) 500 mg PO DAILY supplement 03/03/20 [History Last Taken Unknown] cholecalciferol (vitamin D3) 50 mcg (2,000 unit) capsule 50 mcg PO DAILY supplement 03/03/20 [History Last Taken Unknown] diclofenac sodium 50 mg tablet,delayed release 50 mg PO BID supplement 03/03/20 [History Last Taken Unknown] fluticasone propionate 50 mcg/actuation nasal spray,suspension (Flonase Allergy Relief) 1 spray intranasal DAILY shortness of breath 03/03/20 [History Last Taken Unknown] levocetirizine 5 mg tablet (24HR Allergy Relief) 5 mg PO DAILY allergies 03/03/20 [History Last Taken 01/31/23] olmesartan 40 mg-hydrochlorothiazide 25 mg tablet 1 ea PO DAILY blood pressure 03/03/20 [History Last Taken 01/31/23] oxycodone-acetaminophen 7.5 mg-325 mg tablet 1 ea PO Q4H PRN Pain 03/03/20 [History Last Taken Unknown] propranolol 10 mg tablet 10 mg PO DAILY Blood pressure 03/03/20 [History Last Taken 01/31/23] tizanidine 4 mg tablet 1 ea PO TID PRN Spasms 03/03/20 [History Last Taken 01/31/23] zinc 50 mg tablet 50 mg PO DAILY supplement 03/03/20 [History Last Taken 01/31/23] Allergy/AdvReac Type Severity Reaction Status Date / Time No Known Allergies Allergy Verified 11/15/22 18:01 Family History Mother Hypertension Hypotension Diabetes Arthritis Father Hypertension Hypotension Heart disease Status post double vessel coronary artery bypass angina Arthritis Grandfather Prostate cancer Grandmother Uterine cancer Surgical History (Updated 02/01/23 @ 20:[address] Terri Nino MD) H/O sinus surgery Hx of spinal surgery Social History household members: other details: parents current occupational status: employed and retired Smoking Status: Former smoker alcohol intake: never substance use type: does not use do you feel safe at home: Yes Physical Exam Narrative Pt with a 34 x 26cm eschar of the right buttock. This extends anteriorly to the rectum and posterior scrotum. This appears to be c/w pressure from sitting with weight shifted to the right side. Areas of the periphery appear to be partial thickness. There are a few areas of full thickness eschar. No purulent drainage noted. There is a copious amount of serous-like drainage in the chux pad beneath him. Lab / Micro Data 02/02/23 03:46 02/02/23 03:46 Labs: Laboratory Results - last 24 hr 02/01/23 11:27: POC Glucose 112 H 02/01/23 11:45: WBC 14.3 H, RBC 4.12 L, Hgb 9.6 L, Hct 31.0 L, MCV 75.2 L, MCH 23.3 L, MCHC 31.0 L, RDW Std Deviation 52.5 H, RDW Coeff of Mary 19.3 H, Plt Count 337, MPV 9.7, Immature Gran % (Auto) 0.600, Neut % (Auto) 75.1 H, Lymph % (Auto) 11.1 L, [place] % (Auto) 11.8 H, Eos % (Auto) 1.0, Baso % (Auto) 0.4, Absolute Neuts (auto) 10.8 H, Absolute Lymphs (auto) 1.58, Nucleated RBC % 0, Diff Path Review September, PT 14.8, INR 1.2, APTT 34.9, Sodium 127 L, Potassium 3.6, Chloride 91 L, Carbon Dioxide 30.0, Anion Gap 6, BUN 49 H, Creatinine 0.75, Estim Creat Clear Calc 104.05, Est GFR (MDRD) Af Amer 139, Est GFR (MDRD) Non-Af 115, BUN/Creatinine Ratio 65.4 H, Glucose 77, Lactic Acid 0.9, Calcium 8.4 L, Total Bilirubin 0.40, AST 244 H, ALT 62 H, Alkaline Phosphatase 135 H, Total Creatine Kinase 4735 H, Troponin I High Sens 151 H*, Total Protein 7.2, Albumin 2.4 L, Globulin 4.8 H, Albumin/Globulin Ratio 0.5 L 02/01/23 12:02: Urine Color Yellow, Urine Clarity Sl. Cloudy, Urine pH 6.0, Ur Specific [place] 1.010, Urine Protein 15 H, Urine Glucose (UA) Normal, Urine Ketones Negative, Urine Occult Blood 150 H, Urine Nitrite Negative, Urine Bilirubin Negative, Urine Urobilinogen Normal, Ur Leukocyte Esterase 500 H, Urine RBC 0 SEEN, Urine WBC >100 SEEN, Ur Squamous Epith Cells 0 SEEN, Urine Bacteria 0 SEEN, Urine Mucus 0 SEEN 02/01/23 12:14: POC Glucose 77 02/01/23 14:43: POC Glucose 76 02/01/23 14:53: PT 14.5, INR 1.1, APTT 35.7, Phosphorus 4.2, Magnesium 2.4, Iron 19 L, TIBC 250, Iron Saturation 7.6 L, Ferritin 1289 H, Troponin I High Sens 146 H* 02/01/23 20:59: POC Glucose 35 L* 02/01/23 21:16: POC Glucose 73 L 02/01/23 21:47: POC Glucose 87 02/01/23 22:14: Troponin I High Sens 128 H* 02/01/23 23:38: APTT 88.4 H, Troponin I High Sens 123 H* 02/02/23 01:40: POC Glucose 81 02/02/23 03:45: MRSA (PCR) Negative 02/02/23 03:46: WBC 15.7 H, RBC 3.62 L, Hgb 8.3 L, Hct 28.0 L, MCV 77.3 L, MCH 22.9 L, MCHC 29.6 L, RDW Std Deviation 54.0 H, RDW Coeff of Mary 19.2 H, Plt Count 358, MPV 9.6, Immature Gran % (Auto) 0.400, Neut % (Auto) 76.7 H, Lymph % (Auto) 13.1 L, [place] % (Auto) 8.5, Eos % (Auto) 0.8, Baso % (Auto) 0.5, Absolute Neuts (auto) 12.0 H, Absolute Lymphs (auto) 2.05, Nucleated RBC % 0, Sodium 133 L, Potassium 3.8, Chloride 97 L, Carbon Dioxide 30.0, Anion Gap 6, BUN 40 H, Creatinine 0.71, Estim Creat Clear Calc 129.03, Est GFR (MDRD) Af Amer 147, Est GFR (MDRD) Non-Af 122, BUN/Creatinine Ratio 56.2 H, Glucose 57 L, Hemoglobin A1c 5.6, Calcium 8.2 L, Total Bilirubin 0.40, AST 163 H, ALT 55, Alkaline Phosphatase 122 H, Total Creatine Kinase 2416 H, Troponin I High Sens 156 H*, Total Protein 6.5, Albumin 2.1 L, Globulin 4.4 H, Albumin/Globulin Ratio 0.5 L, Triglycerides 154, Cholesterol 123, LDL Cholesterol 66, VLDL Cholesterol 31, HDL Cholesterol 26 L 02/02/23 05:44: POC Glucose 34 L* 02/02/23 06:41: POC Glucose 124 H 02/02/23 06:42: APTT 77.7 H Micro: Microbiology 02/01/23 12:02 Urine Catheter - [place] Urine Culture - Preliminary GNR Poss Pseudomonas sp 02/01/23 12:16 Mucosa - Nasopharyngeal Respiratory Panel (PCR) - Final ABG Data ABG results: ABG 02/01/23 12:35 Specimen Type ART Sample Site R Radial pH 7.37 Bicarbonate Actual 27.9 H Total CO2 29 Base Excess 3 H O2 Saturation 94 L O2 % 2.0 ABG pCO2 48.1 H ABG pO2 73 L Eliecer Test Positive O2 Delivery Device Cannula Vent Mode Not entered Radiology Impression Chest CTA 02/01/23 11:39 IMPRESSION: Bilateral pulmonary emboli worse on the right side as described. Right lower lobe infiltrate and small right pleural effusion. Destruction of the T9 vertebrae with acute kyphotic deformity at the T9-T10 level with possible osteomyelitis. Electronically Signed: Meño Arrington MD at 14:48 EDT , Lumbar Spine CT 02/01/23 11:39 IMPRESSION: Acute kyphotic deformity at the T9-T10 level with almost complete collapse and destruction of the T9 vertebrae. Multilevel interpedicular screw and sharif fixation with multilevel disc space narrowing in the facet joint osteoarthritis. Electronically Signed: Meño Arrington MD at 14:40 EDT , Chest X-Ray 02/01/23 12:15 IMPRESSION: Right lower lobe infiltrate. Electronically Signed: Meño Arrington MD at 12:38 EDT ,
--- NOTE | 2023-02-02 13:23 | WOUNDNOTE ---
wound photo: mid upper back
--- NOTE | 2023-02-02 13:24 | WOUNDNOTE ---
wound photo: right buttock/partial left buttock
--- NOTE | 2023-02-02 13:25 | WOUNDNOTE ---
wound photo: left lateral lower leg/lateral heel
[2023-02-02 13:41] LABS: Partial Thromboplast Time 55.1 Seconds (24.1-36.2)
--- NOTE | 2023-02-02 13:56 | WOUNDNOTE ---
Will order low air loss (Envision) mattress for patient to assist in better offloading. Pt also on a strict Q2H turn schedule. heels are also to be elevated.
--- NOTE | 2023-02-02 14:08 | PCM.CONS.GEN ---
Assessment & Plan Assessment/Plan (1) Pressure injury, unstageable, with eschar: (2) Bilateral pulmonary embolism: (3) Acute osteomyelitis of spine: PLAN: Treating for osteo, spine surgery to see, MRI pending. Recent surgery in [place], hardware in place. Will change to vanc/cefepime/flagyl for better spine penetration compared to zosyn. Ucx with PsA - heavy pyuria, abx as above cellulitis and decub ulcer - wound care following. Will follow, thank you (4) Cellulitis of leg without foot, right: (5) Cellulitis of leg without foot, left: HPI Consult Data Date of Consult: 02/02/23 HPI Narrative Reason for Consultation: osteo HPI Narrative: MELISSA ELIAS, is a 57 M with h/o Morbid obesity, Chronic BL LE Lymphedema/PVD, Severe chronic back pain with nonambulatory status complicated by mechanical fall 11/2022 with unfortunate L1 injury and paraplegic status following, HTN, Allergic rhinitis, BATOOL on BIPAP who presents to [facility] on 02/01/23 with history of spinal surgery in [place] 01/27/2023, presented with confusion, not feeling well. CT showed possible in T-spine. Chronic bartlett, has not noticed any change in urine. Full ROS performed and neg except as noted above. [facility] Medical History Anemia BMI greater than 40 Former tobacco use H/o back surgery HTN (hypertension) Lymphedema BATOOL treated with BiPAP Paraplegia Type 2 diabetes mellitus Home Medications B-complex with vitamin C 1 tab PO DAILY supplement 03/03/20 [History Last Taken Unknown] ascorbate calcium (vitamin C) 500 mg tablet 500 mg PO DAILY supplement 03/03/20 [History Last Taken Unknown] calcium carbonate 500 mg calcium (1,250 mg) tablet (Calcium 500) 500 mg PO DAILY supplement 03/03/20 [History Last Taken Unknown] cholecalciferol (vitamin D3) 50 mcg (2,000 unit) capsule 50 mcg PO DAILY supplement 03/03/20 [History Last Taken Unknown] diclofenac sodium 50 mg tablet,delayed release 50 mg PO BID supplement 03/03/20 [History Last Taken Unknown] fluticasone propionate 50 mcg/actuation nasal spray,suspension (Flonase Allergy Relief) 1 spray intranasal DAILY shortness of breath 03/03/20 [History Last Taken Unknown] levocetirizine 5 mg tablet (24HR Allergy Relief) 5 mg PO DAILY allergies 03/03/20 [History Last Taken 01/31/23] olmesartan 40 mg-hydrochlorothiazide 25 mg tablet 1 ea PO DAILY blood pressure 03/03/20 [History Last Taken 01/31/23] oxycodone-acetaminophen 7.5 mg-325 mg tablet 1 ea PO Q4H PRN Pain 03/03/20 [History Last Taken Unknown] propranolol 10 mg tablet 10 mg PO DAILY Blood pressure 03/03/20 [History Last Taken 01/31/23] tizanidine 4 mg tablet 1 ea PO TID PRN Spasms 03/03/20 [History Last Taken 01/31/23] zinc 50 mg tablet 50 mg PO DAILY supplement 03/03/20 [History Last Taken 01/31/23] Allergy/AdvReac Type Severity Reaction Status Date / Time No Known Allergies Allergy Verified 11/15/22 18:01 Family History Mother Hypertension Hypotension Diabetes Arthritis Father Hypertension Hypotension Heart disease Status post double vessel coronary artery bypass angina Arthritis Grandfather Prostate cancer Grandmother Uterine cancer Surgical History (Updated 02/01/23 @ 20:[address] Terri Nino MD) H/O sinus surgery Hx of spinal surgery Social History household members: other details: parents current occupational status: employed and retired Smoking Status: Former smoker alcohol intake: never substance use type: does not use do you feel safe at home: Yes Physical Exam Const alert and no apparent distress General Appearance: cooperative HEENT normocephalic and head/scalp atraumatic Eyes PERRL and EOMs intact bilaterally Neck supple and No nodes Resp normal air movement and clear to auscultation bilaterally Cardio regular rate and regular rhythm GI soft to palpation, non-tender and non-distended Extremity General Extremity: edema Skin Skin Narrative: reviewed wound photos Neuro CN's II-XII intact bilaterally Neuro Narrative: paraplegic Lab / Micro Data Attestation: I reviewed the patient's lab results. 02/02/23 03:46 02/02/23 03:46 Labs: Laboratory Results - last 24 hr 02/01/23 14:43: POC Glucose 76 02/01/23 14:53: PT 14.5, INR 1.1, APTT 35.7, Phosphorus 4.2, Magnesium 2.4, Iron 19 L, TIBC 250, Iron Saturation 7.6 L, Ferritin 1289 H, Troponin I High Sens 146 H* 02/01/23 20:59: POC Glucose 35 L* 02/01/23 21:16: POC Glucose 73 L 02/01/23 21:47: POC Glucose 87 02/01/23 22:14: Troponin I High Sens 128 H* 02/01/23 23:38: APTT 88.4 H, Troponin I High Sens 123 H* 02/02/23 01:40: POC Glucose 81 02/02/23 03:45: MRSA (PCR) Negative 02/02/23 03:46: WBC 15.7 H, RBC 3.62 L, Hgb 8.3 L, Hct 28.0 L, MCV 77.3 L, MCH 22.9 L, MCHC 29.6 L, RDW Std Deviation 54.0 H, RDW Coeff of Mary 19.2 H, Plt Count 358, MPV 9.6, Immature Gran % (Auto) 0.400, Neut % (Auto) 76.7 H, Lymph % (Auto) 13.1 L, [place] % (Auto) 8.5, Eos % (Auto) 0.8, Baso % (Auto) 0.5, Absolute Neuts (auto) 12.0 H, Absolute Lymphs (auto) 2.05, Nucleated RBC % 0, Sodium 133 L, Potassium 3.8, Chloride 97 L, Carbon Dioxide 30.0, Anion Gap 6, BUN 40 H, Creatinine 0.71, Estim Creat Clear Calc 129.03, Est GFR (MDRD) Af Amer 147, Est GFR (MDRD) Non-Af 122, BUN/Creatinine Ratio 56.2 H, Glucose 57 L, Hemoglobin A1c 5.6, Calcium 8.2 L, Total Bilirubin 0.40, AST 163 H, ALT 55, Alkaline Phosphatase 122 H, Total Creatine Kinase 2416 H, Troponin I High Sens 156 H*, Total Protein 6.5, Albumin 2.1 L, Globulin 4.4 H, Albumin/Globulin Ratio 0.5 L, Triglycerides 154, Cholesterol 123, LDL Cholesterol 66, VLDL Cholesterol 31, HDL Cholesterol 26 L 02/02/23 05:44: POC Glucose 34 L* 02/02/23 06:41: POC Glucose 124 H 02/02/23 06:42: APTT 77.7 H 02/02/23 13:24: APTT 55.1 H Micro: Microbiology 02/01/23 12:02 Urine Catheter - [place] Urine Culture - Preliminary GNR Poss Pseudomonas sp 02/01/23 12:16 Mucosa - Nasopharyngeal Respiratory Panel (PCR) - Final Radiology Impression Chest CTA 02/01/23 11:39 IMPRESSION: Bilateral pulmonary emboli worse on the right side as described. Right lower lobe infiltrate and small right pleural effusion. Destruction of the T9 vertebrae with acute kyphotic deformity at the T9-T10 level with possible osteomyelitis. Electronically Signed: Meño Arrington MD at 14:48 EDT , Lumbar Spine CT 02/01/23 11:39 IMPRESSION: Acute kyphotic deformity at the T9-T10 level with almost complete collapse and destruction of the T9 vertebrae. Multilevel interpedicular screw and sharif fixation with multilevel disc space narrowing in the facet joint osteoarthritis. Electronically Signed: Meño Arrington MD at 14:40 EDT , Echocardiogram 02/01/23 19:39 Interpretation Summary The estimated ejection fraction is 65 %. Unable to assess diastolic dysfunction. Ordering Physician: Terri Nino Referring Physician: Wilma Thayer Performed By: Char Gtz RCS
--- NOTE | 2023-02-02 14:09 | PN_ITS ---
Subjective Subjective Patient seen and examined. He had no active complaints. He denied any fever, chills, cough, chest pain, palpitations or any other symptoms. He has remained hemodynamically stable. Objective Data Objective Data Vital Signs: Vital Signs Temp Pulse Resp BP Pulse Ox O2 Del Method O2 Flow Rate 97.5 F L 88 16 108/65 98 Nasal Cannula 3 02/02/23 08:21 02/02/23 08:21 02/02/23 08:21 02/02/23 08:21 02/02/23 08:21 02/02/23 08:49 02/02/23 08:21 Oxygen Flow Rate (L/min) 3 Oxygen Delivery Method Nasal Cannula Weight: 313 lb 15.012 oz Body Mass Index (BMI) 42.5 Intake & Output: Intake and Output for Last 24 Hours 01/31/23 02/01/23 02/02/23 23:59 23:59 23:59 Intake Total 1090 / 1240 1555.5 / 1555.5 Output Total 1600 / 1600 Balance 1090 / -160 -44.5 / -44.5 Lab / Micro Data 02/02/23 03:46 02/02/23 03:46 Labs: Laboratory Results - last 24 hr 02/01/23 14:43: POC Glucose 76 02/01/23 14:53: PT 14.5, INR 1.1, APTT 35.7, Phosphorus 4.2, Magnesium 2.4, Iron 19 L, TIBC 250, Iron Saturation 7.6 L, Ferritin 1289 H, Troponin I High Sens 146 H* 02/01/23 20:59: POC Glucose 35 L* 02/01/23 21:16: POC Glucose 73 L 02/01/23 21:47: POC Glucose 87 02/01/23 22:14: Troponin I High Sens 128 H* 02/01/23 23:38: APTT 88.4 H, Troponin I High Sens 123 H* 02/02/23 01:40: POC Glucose 81 02/02/23 03:45: MRSA (PCR) Negative 02/02/23 03:46: WBC 15.7 H, RBC 3.62 L, Hgb 8.3 L, Hct 28.0 L, MCV 77.3 L, MCH 22.9 L, MCHC 29.6 L, RDW Std Deviation 54.0 H, RDW Coeff of Mary 19.2 H, Plt Count 358, MPV 9.6, Immature Gran % (Auto) 0.400, Neut % (Auto) 76.7 H, Lymph % (Auto) 13.1 L, [place] % (Auto) 8.5, Eos % (Auto) 0.8, Baso % (Auto) 0.5, Absolute Neuts (auto) 12.0 H, Absolute Lymphs (auto) 2.05, Nucleated RBC % 0, Sodium 133 L, Potassium 3.8, Chloride 97 L, Carbon Dioxide 30.0, Anion Gap 6, BUN 40 H, Creatinine 0.71, Estim Creat Clear Calc 129.03, Est GFR (MDRD) Af Amer 147, Est GFR (MDRD) Non-Af 122, BUN/Creatinine Ratio 56.2 H, Glucose 57 L, Hemoglobin A1c 5.6, Calcium 8.2 L, Total Bilirubin 0.40, AST 163 H, ALT 55, Alkaline Phosphatase 122 H, Total Creatine Kinase 2416 H, Troponin I High Sens 156 H*, Total Protein 6.5, Albumin 2.1 L, Globulin 4.4 H, Albumin/Globulin Ratio 0.5 L, Triglycerides 154, Cholesterol 123, LDL Cholesterol 66, VLDL Cholesterol 31, HDL Cholesterol 26 L 02/02/23 05:44: POC Glucose 34 L* 02/02/23 06:41: POC Glucose 124 H 02/02/23 06:42: APTT 77.7 H 02/02/23 13:24: APTT 55.1 H Micro: Microbiology 02/01/23 12:02 Urine Catheter - Bartlett Urine Culture - Preliminary GNR Poss Pseudomonas sp 02/01/23 12:16 Mucosa - Nasopharyngeal Respiratory Panel (PCR) - Final Radiography Diagnostic Testing: Radiology Impression Chest CTA 02/01/23 11:39 IMPRESSION: Bilateral pulmonary emboli worse on the right side as described. Right lower lobe infiltrate and small right pleural effusion. Destruction of the T9 vertebrae with acute kyphotic deformity at the T9-T10 level with possible osteomyelitis. Electronically Signed: Meño Arrington MD at 14:48 EDT , Lumbar Spine CT 02/01/23 11:39 IMPRESSION: Acute kyphotic deformity at the T9-T10 level with almost complete collapse and destruction of the T9 vertebrae. Multilevel interpedicular screw and sharif fixation with multilevel disc space narrowing in the facet joint osteoarthritis. Electronically Signed: Meño Arrington MD at 14:40 EDT , Echocardiogram 02/01/23 19:39 Interpretation Summary The estimated ejection fraction is 65 %. Unable to assess diastolic dysfunction. Ordering Physician: Terri Nino Referring Physician: Wilma Thayer Performed By: Char Gtz RCS Physical Exam Const alert, oriented x3 and no apparent distress Constitutional Narrative: super morbid obesity General Appearance: cooperative HEENT normocephalic, head/scalp atraumatic, moist oral mucous membranes and oropharynx normal Eyes PERRL and EOMs intact bilaterally Neck no lymphadenopathy, supple and no JVD Lymph Lymphatic: no lymphadenopathy noted and no lymphedema noted Resp Resp Narrative: mildly diminished breath sounds bibasally, no wheezes or crackles. On 3L of oxygen by nasal canula Cardio regular rate, regular rhythm, S1 normal heart sound, S2 normal heart sound and no murmurs GI normal to inspection, nondistended, normoactive bowel sounds, soft to palpation, non-tender and non-distended GI Narrative: obese abdomen Extremity normal capillary refill and no clubbing, cyanosis or edema Skin Skin Narrative: skin is very dry, cracked and peeling. Neuro CN's II-XII intact bilaterally Neuro Narrative: power in RUE and LUE is 5/5. Power in lower extremities is 0/5 Psych thought process normal, cooperative and affect normal Appearance: appropriate Assessment & Plan Assessment/Plan (1) Bilateral pulmonary embolism: (2) Rhabdomyolysis: (3) Community acquired pneumonia: (4) Acute osteomyelitis of spine: PLAN: Plan #Hypoxia due to right lower lobe pneumonia * complicated by BATOOL * on IV vancomycin and zosyn * sputum culture pending. COVID negative and respiratory panel negative * #Bilateral PE * as seen on CTA. * on heparin drip * * #Probable acute osteomyelitis of T9 * came in with severe chronic back pain * had a recent fall with L1 injury and resultant paraplegia * he recently had surgery in [place]. He is unable to say exactly what he had the surgery for * CT of the thoracic and lumbar spine showed acute kyphotic deformity at T9-T10 with almost complete collapse and destruction of the T9 vertebrae * MRi of the lumbar spine was ordered but not done as MRI department felt that per the CT lumbar spine images, he had multilevel screws and sharif fixation in the spine, this would limit the efficacy of the the MRI. * Spine surgery consulted. Dr Curtis reviewed images and recommended urgent transfer to a tertiary facility for evaluation for surgery due to complete collapse of T9 * on IV vancomycin, cefepime and flagyl. * records requested from Hospital in [place] where he had the spine surgery- per records from [facility] in [place], [place], he had left T10/T11 exploration of spina fusion with re-exploration of laminectomy and partial facetectomy and foraminotomy. * #Nonstemi * troponins were 151 on admission, and trended down to 123. * 2D echo showed Ef of 65%, unable to assess diastolic dysfunction. * on heparin drip. * this elevation in troponin can be explained by bilateral PE, and not really nonstemi. * #Unstageable sacral decubitus ulcer with eschar * present on admission. Wound care and plastic surgery on board * #UTI: * concern for colonisation due to chronic indwelling bartlett catheter * currently on antibiotics as above * ID on board. Urine cultures ordered * #Rhabdomyolysis: CPK was 4735. Continue gentle hydration and trend #Type 2 diabetes mellitus * Had several episodes of hypoglycemia since admission. All diabetes medication on hold. Being hydrated with D5 NS. * ISS. Acuchecks ACHS * * #Super morbid obesity. Complicates acute care, expected recovery and prognosis. #Paraplegia due to mechanical fall with resultant L1 injury * Recently had surgery in [place]. Records requested from [facility]. * DVT prophylaxis; on heparin drip due to bilateral PE Disposition: Awaiting transfer to tertiary center. [facility] not taking any transfers at the moment. Call back pending from [facility] Main campus. Patient was accepted at [facility] pending bed availability. However, I was subseq uently informed by the [facility] transfer line that the spine surgeon spoke to Dr. Curtis and they agreed that what the patient likely had was a Charcot joint of the spine. In light of his numerous comorbidities such as bilateral PE and patient having an extensive decubitus ulcer, though [facility] spine surgeon did not think patient would be taken for surgery as he was too high risk. Recommendation now therefore is for medical optimization and that he follows up on outpatient basis. Charges/Coding Visit Charges Inpatient E&M: 03734 Subs Hosp L3
[2023-02-02 14:18] LABS: Bedside Glucose 50 mg/dL (74-106)
--- NOTE | 2023-02-02 14:21 | WOUNDNOTE ---
was informed by nursing that the MRI was not good and patient is not to be turned at all. Pt is being transferred out. notified DEMIAN Schneider.
[2023-02-02 14:38] LABS: Bedside Glucose 59 mg/dL (74-106)
--- NOTE | 2023-02-02 14:38 | PCM.RX.CS ---
Consult Antibiotic Management Pharmacy has been consulted to manage selected antiobiotic: Vancomycin Type of Intervention Type of Consult: Follow-up Suspected Infection Suspected Infection: Osteomyelitis and Pneumonia Prior Doses of Antibiotics Prior Doses of Antibiotics Received/Current Regimen: Current order is 1500mg iv q8h. Labs Labs: Sodium 133 mmol/L (136-145) L 02/02/23 03:46 Potassium 3.8 mmol/L (3.5-5.1) 02/02/23 03:46 Chloride 97 mmol/L (98-107) L 02/02/23 03:46 Carbon Dioxide 30.0 mmol/L (21.0-32.0) 02/02/23 03:46 Anion Gap 6 (5-15) 02/02/23 03:46 BUN 40 mg/dL (7-18) H 02/02/23 03:46 Creatinine 0.71 mg/dL (0.70-1.30) 02/02/23 03:46 Est GFR (MDRD) Af Amer 147 mL/min (>60) 02/02/23 03:46 Est GFR (MDRD) Non-Af 122 mL/min (>60) 02/02/23 03:46 BUN/Creatinine Ratio 56.2 RATIO (10-20) H 02/02/23 03:46 Glucose 57 mg/dL (74-106) L 02/02/23 03:46 Vancomycin Trough 31.0 ug/mL (5.0-15.0) H 02/02/23 13:24 Microbiology Microbiology: Microbiology 02/01/23 12:02 Urine Catheter - Campbell Urine Culture - Preliminary GNR Poss Pseudomonas sp 02/01/23 12:16 Mucosa - Nasopharyngeal Respiratory Panel (PCR) - Final Dosing Weight Weight used for dosin kg Estimated Creatinine Clearance Estimated Creatinine Clearance: >120 Pharmacy Plan for Drug Dosing Pharmacy Plan for Drug Dosing: Trough today 8 hrs post dose was elevated at 31.0. Will hold further dosing until level <20. Random level ordered for tomorrow AM Pharmacy Service will continue to monitor and adjust dosing as required. Follow-Up Labs Follow-Up Labs: Trough: Vancomycin (random 02.03.23 0600)
--- NOTE | 2023-02-02 14:50 | CASEMGMT ---
Tertiary facilities in-network with patient's insurance:[facility], [place], [facility], [facility], [facility], [facility], [facility]), [facility], and
[2023-02-02] MEDS: Cefepime HCl 2 GM in 0.9% Normal Saline (100mL MB+) 100 ML IV ×2 (17:03→21:07)
[2023-02-02] MEDS: metroNIDAZOLE 500 MG Tablet PO ×2 (17:08→21:13)
[2023-02-02 17:13] LABS: Bedside Glucose 67 mg/dL (74-106)
--- NOTE | 2023-02-02 17:38 | CONS.ORTHO ---
HPI Consult Data Date of Consult: 02/02/23 HPI Narrative HPI Narrative: The patient is a 57-year-old male who is currently admitted for multiple medical issues. He is currently lying in bed resting comfortably. He is accompanied by his family who contributed to the medical history. Imaging of the spine showed previous surgical hardware with possible osteomyelitis and spine surgery has been consulted for evaluation and management. The patient states that he had a lumbar fusion in 2016 in [place] with a subsequent revision and extension of that fusion in 2020. He states that in November of this year he suffered a fall with subsequent bilateral lower extremity paraplegia. He did present to [facility] ER where he was seen and evaluated. No further back surgery was recommended at that time. He was subsequently discharged to a nursing facility where he states he developed pressure sores. Upon discharge from the nursing facility he did contact a spine surgery clinic in [place] and traveled there where he had another back surgery 6 days ago. He states the surgery was a decompression of T9-10. He then traveled back here after his surgery. 2 days ago he developed hypoglycemia and return to the ER where he was subsequently admitted. Since then he was found to have bilateral pulmonary embolism, pneumonia, rhabdo myelitis, possible osteomyelitis of T10. Infectious disease has been consulted for antibiotic management. The patient has no sensory or motor function in the lower extremities. [facility] Medical History Anemia BMI greater than 40 Former tobacco use H/o back surgery HTN (hypertension) Lymphedema BATOOL treated with BiPAP Paraplegia Type 2 diabetes mellitus Home Medications B-complex with vitamin C 1 tab PO DAILY supplement 03/03/20 [History Last Taken Unknown] ascorbate calcium (vitamin C) 500 mg tablet 500 mg PO DAILY supplement 03/03/20 [History Last Taken Unknown] calcium carbonate 500 mg calcium (1,250 mg) tablet (Calcium 500) 500 mg PO DAILY supplement 03/03/20 [History Last Taken Unknown] cholecalciferol (vitamin D3) 50 mcg (2,000 unit) capsule 50 mcg PO DAILY supplement 03/03/20 [History Last Taken Unknown] diclofenac sodium 50 mg tablet,delayed release 50 mg PO BID supplement 03/03/20 [History Last Taken Unknown] fluticasone propionate 50 mcg/actuation nasal spray,suspension (Flonase Allergy Relief) 1 spray intranasal DAILY shortness of breath 03/03/20 [History Last Taken Unknown] levocetirizine 5 mg tablet (24HR Allergy Relief) 5 mg PO DAILY allergies 03/03/20 [History Last Taken 01/31/23] olmesartan 40 mg-hydrochlorothiazide 25 mg tablet 1 ea PO DAILY blood pressure 03/03/20 [History Last Taken 01/31/23] oxycodone-acetaminophen 7.5 mg-325 mg tablet 1 ea PO Q4H PRN Pain 03/03/20 [History Last Taken Unknown] propranolol 10 mg tablet 10 mg PO DAILY Blood pressure 03/03/20 [History Last Taken 01/31/23] tizanidine 4 mg tablet 1 ea PO TID PRN Spasms 03/03/20 [History Last Taken 01/31/23] zinc 50 mg tablet 50 mg PO DAILY supplement 03/03/20 [History Last Taken 01/31/23] Allergy/AdvReac Type Severity Reaction Status Date / Time No Known Allergies Allergy Verified 11/15/22 18:01 Family History Mother Hypertension Hypotension Diabetes Arthritis Father Hypertension Hypotension Heart disease Status post double vessel coronary artery bypass angina Arthritis Grandfather Prostate cancer Grandmother Uterine cancer Surgical History (Updated 02/01/23 @ 20:[address] Terri Nino MD) H/O sinus surgery Hx of spinal surgery Social History household members: other details: parents current occupational status: employed and retired Smoking Status: Former smoker alcohol intake: never substance use type: does not use do you feel safe at home: Yes Vital Signs Vital Signs Vital Signs: 02/01/23 18:00 02/01/23 19:07 02/01/23 20:40 Temperature 97.7 F L 97.6 F L 98.0 F Temperature Source Oral Oral Temporal Pulse Rate 99 92 83 Pulse Strength Respiratory Rate 14 17 18 Respiratory Effort Respiratory Depth Respiratory Pattern Blood Pressure 153/83 H 102/66 Blood Pressure [BP] 76/38 L Blood Pressure Mean 106 78 Blood Pressure Mean [BP] 50 Blood Pressure Source Monitor Blood Pressure Source [BP] Monitor Blood Pressure Position Semi-Fowlers Blood Pressure Position [BP] Semi-Fowlers Blood Pressure Location Right Forearm Blood Pressure Location [BP] Right Forearm Pulse Ox 93 93 97 Oxygen Delivery Method Nasal Cannula Nasal Cannula Nasal Cannula Oxygen Flow Rate (L/min) 3 3 3 02/01/23 19:39 02/01/23 21:26 02/01/23 21:49 Temperature 98 F 98.1 F Temperature Source Temporal Temporal Pulse Rate 86 89 90 Pulse Strength Respiratory Rate 18 18 18 Respiratory Effort Respiratory Depth Respiratory Pattern Blood Pressure 124/79 H Blood Pressure [BP] 68/44 L 99/70 Blood Pressure Mean 94 Blood Pressure Mean [BP] 52 79 Blood Pressure Source Monitor Blood Pressure Source [BP] Monitor Monitor Blood Pressure Position Semi-Fowlers Blood Pressure Position [BP] Semi-Fowlers Semi-Fowlers Blood Pressure Location Left Arm Blood Pressure Location [BP] Left Arm Left Arm Pulse Ox 97 100 98 Oxygen Delivery Method Nasal Cannula Nasal Cannula Nasal Cannula Oxygen Flow Rate (L/min) 3 3 3 02/01/23 22:00 02/01/23 22:00 02/01/23 22:40 Temperature Temperature Source Pulse Rate Pulse Strength Normal (2+) Respiratory Rate 18 Respiratory Effort Normal Respiratory Depth Shallow Respiratory Pattern Normal Blood Pressure Blood Pressure [BP] Blood Pressure Mean Blood Pressure Mean [BP] Blood Pressure Source Blood Pressure Source [BP] Blood Pressure Position Blood Pressure Position [BP] Blood Pressure Location Blood Pressure Location [BP] Pulse Ox 98 94 Oxygen Delivery Method Nasal Cannula Nasal Cannula Oxygen Flow Rate (L/min) 3 3 02/01/23 22:40 02/01/23 22:30 02/02/23 00:00 Temperature 98.1 F Temperature Source Temporal Pulse Rate 90 87 Pulse Strength Respiratory Rate 18 18 Respiratory Effort Labored Respiratory Depth Normal Respiratory Pattern Tachypnea Blood Pressure Blood Pressure [BP] 100/66 120/74 Blood Pressure Mean Blood Pressure Mean [BP] 77 89 Blood Pressure Source Blood Pressure Source [BP] Monitor Monitor Blood Pressure Position Blood Pressure Position [BP] Semi-Fowlers Semi-Fowlers Blood Pressure Location Blood Pressure Location [BP] Left Arm Left Arm Pulse Ox 99 98 Oxygen Delivery Method Nasal Cannula Nasal Cannula Nasal Cannula Oxygen Flow Rate (L/min) 3 3 3 02/02/23 01:30 02/02/23 03:00 02/02/23 07:59 Temperature 97.9 F 98.2 F Temperature Source Temporal Temporal Pulse Rate 84 90 Pulse Strength Respiratory Rate 18 18 Respiratory Effort Respiratory Depth Respiratory Pattern Blood Pressure 104/68 Blood Pressure [BP] 128/60 H Blood Pressure Mean 80 Blood Pressure Mean [BP] 82 Blood Pressure Source Monitor Blood Pressure Source [BP] Monitor Blood Pressure Position Semi-Fowlers Blood Pressure Position [BP] Semi-Fowlers Blood Pressure Location Left Arm Blood Pressure Location [BP] Left Arm Pulse Ox 99 99 93 Oxygen Delivery Method Nasal Cannula Nasal Cannula Nasal Cannula Oxygen Flow Rate (L/min) 3 3 3 02/02/23 08:21 02/02/23 08:49 02/02/23 14:49 Temperature 97.5 F L Temperature Source Temporal Pulse Rate 88 Pulse Strength Respiratory Rate 16 Respiratory Effort Normal Non-Labored Respiratory Depth Shallow Respiratory Pattern Normal Blood Pressure 108/65 Blood Pressure [BP] Blood Pressure Mean 79 Blood Pressure Mean [BP] Blood Pressure Source Monitor Blood Pressure Source [BP] Blood Pressure Position Semi-Fowlers Blood Pressure Position [BP] Blood Pressure Location Right Arm Blood Pressure Location [BP] Pulse Ox 98 Oxygen Delivery Method Nasal Cannula Nasal Cannula Oxygen Flow Rate (L/min) 3 3 02/02/23 15:24 02/02/23 15:44 02/02/23 15:47 Temperature 98.0 F Temperature Source Temporal Pulse Rate 85 Pulse Strength Respiratory Rate 16 Respiratory Effort Normal Non-Labored Respiratory Depth Normal Respiratory Pattern Normal Blood Pressure 127/69 H Blood Pressure [BP] Blood Pressure Mean 88 Blood Pressure Mean [BP] Blood Pressure Source Monitor Blood Pressure Source [BP] Blood Pressure Position Supine Blood Pressure Position [BP] Blood Pressure Location Right Arm Blood Pressure Location [BP] Pulse Ox 100 Oxygen Delivery Method Nasal Cannula Oxygen Flow Rate (L/min) 3 3 Weight Weight: 313 lb 15.012 oz Body Mass Index (BMI) 42.5 Physical Exam Const alert, oriented x3 and no apparent distress General Appearance: cooperative and comfortable Neck full ROM General: normal visual inspection Resp normal respiratory effort and normal air movement Effort and Inspection: able to speak in complete sentences Back/Spine Back/Spine Narrative: Examination of the thoracic spine shows two 1 cm transverse incisions from recent surgery in the thoracic midline with andrade in place. The patient also has a large full-thickness pressure sore along the entire right buttock and right iliolumbar region with an extension into part of the inferior left gluteal region as well. Foul odor is associated with this. Cervical Spine: cervical ROM normal Extremity Extremity Narrative: Examination of the upper extremity shows sensation motor intact grossly without focal deficit. Pulses and reflexes are normal and symmetric. No upper motor neuron signs Examination of the lower extremity shows minimal sensation in the proximal anterior thighs. Sensation is not intact in any part of the remainder of the lower extremities. Motor function is not intact in any of the muscle groups of the lower extremities. The patient has dressings to both feet and ankles due to pressure sores in these areas as well. Medical Records Data Medical Nutrition Assessment Dietitian: Malnutrition Criteria Met Start: 02/02/23 16:03 Freq: Status: Active Protocol: Document 02/02/23 16:03 (Rec: 02/02/23 16:03 [id number]) Nutrition Malnutrition Evidence of Malnutrition Exists Yes Malnutrition (severe): Chronic Evidenced By Suboptimal Energy Intake ( Severe),Weight Loss (Severe) Clinical Problem Chronic Disease or Condition Related Malnutrition Etiology severe malnutrition related to inadequate energy intake w/ recent spine injury Signs/Symptoms as evidenced by unintentional 14% wt loss x 2 months, estimated PO intake meeting < 75% of estimated energy needs x 2 months Status Active Problem Recommendation Dietitian Recommendations/Changes continue CHO controlled diet as tolerated; will monitor plan of care and provide ONS as appropriate, will benefit from Wiliam BID d/t wounds. Lab / Micro Data 02/02/23 03:46 02/02/23 03:46 Labs: Laboratory Results - last 24 hr 02/01/23 14:53: Phosphorus 4.2, Magnesium 2.4, Iron 19 L, TIBC 250, Iron Saturation 7.6 L, Ferritin 1289 H 02/01/23 20:59: POC Glucose 35 L* 02/01/23 21:16: POC Glucose 73 L 02/01/23 21:47: POC Glucose 87 02/01/23 22:14: Troponin I High Sens 128 H* 02/01/23 23:38: APTT 88.4 H, Troponin I High Sens 123 H* 02/02/23 01:40: POC Glucose 81 02/02/23 03:45: MRSA (PCR) Negative 02/02/23 03:46: WBC 15.7 H, RBC 3.62 L, Hgb 8.3 L, Hct 28.0 L, MCV 77.3 L, MCH 22.9 L, MCHC 29.6 L, RDW Std Deviation 54.0 H, RDW Coeff of Mary 19.2 H, Plt Count 358, MPV 9.6, Immature Gran % (Auto) 0.400, Neut % (Auto) 76.7 H, Lymph % (Auto) 13.1 L, [place] % (Auto) 8.5, Eos % (Auto) 0.8, Baso % (Auto) 0.5, Absolute Neuts (auto) 12.0 H, Absolute Lymphs (auto) 2.05, Nucleated RBC % 0, Sodium 133 L, Potassium 3.8, Chloride 97 L, Carbon Dioxide 30.0, Anion Gap 6, BUN 40 H, Creatinine 0.71, Estim Creat Clear Calc 129.03, Est GFR (MDRD) Af Amer 147, Est GFR (MDRD) Non-Af 122, BUN/Creatinine Ratio 56.2 H, Glucose 57 L, Hemoglobin A1c 5.6, Calcium 8.2 L, Total Bilirubin 0.40, AST 163 H, ALT 55, Alkaline Phosphatase 122 H, Total Creatine Kinase 2416 H, Troponin I High Sens 156 H*, Total Protein 6.5, Albumin 2.1 L, Globulin 4.4 H, Albumin/Globulin Ratio 0.5 L, Triglycerides 154, Cholesterol 123, LDL Cholesterol 66, VLDL Cholesterol 31, HDL Cholesterol 26 L 02/02/23 05:44: POC Glucose 34 L* 02/02/23 06:41: POC Glucose 124 H 02/02/23 06:42: APTT 77.7 H 02/02/23 12:07: POC Glucose 50 L 02/02/23 13:24: APTT 55.1 H, Vancomycin Trough 31.0 H 02/02/23 14:05: POC Glucose 59 L 02/02/23 16:43: POC Glucose 67 L Micro: Microbiology 02/01/23 12:02 Urine Catheter - Campbell Urine Culture - Preliminary GNR Poss Pseudomonas sp 02/01/23 12:16 Mucosa - Nasopharyngeal Respiratory Panel (PCR) - Final Radiology Impression Echocardiogram 02/01/23 19:39 Interpretation Summary The estimated ejection fraction is 65 %. Unable to assess diastolic dysfunction. Ordering Physician: Terri Nino Referring Physician: Wilma Thayer Performed By: Char Gtz RCS Assessment & Plan Assessment/Plan (1) Acute osteomyelitis of spine: PLAN: I had a lengthy discussion with the patient. I reviewed the results of his imaging with him. CT of the lumbar spine dated 02/01/2023 shows surgical changes from prior T10 to the pelvis fusion with posterior screws and rods. There is a destructive lesion of the T10 vertebral body with subsequent 45 degrees of angulation and about 50% anterolisthesis of T9 on T10. This destructive lesion could be due to osteomyelitis or Charcot arthropathy. Given the patient's current medical condition I do not recommend further surgical treatment at this time. I do recommend referral to a tertiary facility for further evaluation and management. [facility] was contacted but declined transfer. [facility] has accepted transfer and transfer is pending. In the meantime I recommend continued medical management per hospitalist and infectious disease. The patient understands and agrees with the treatment plan.
[2023-02-02 20:06] LABS: Bedside Glucose 127 mg/dL (74-106)
[2023-02-02] MEDS: 0.9% Normal Saline (1000mL) 1,000 ML 150 ML IV (20:45)
[2023-02-02] MEDS: tiZANidine HCl 2 MG Tablet 1 MG PO (21:08)
[2023-02-02] MEDS: HEPARIN/D5w 25,000 UNITS 25,000 UNITS/250 ML IV.SOLN. 17 UNITS CONT INF (22:28)
[2023-02-03] MEDS: oxyCODONE 5 MG Tablet 10 MG PO ×6 (01:55→22:39)
[2023-02-03 03:08] LABS: Bedside Glucose 145 mg/dL (74-106)
[2023-02-03] MEDS: tiZANidine HCl 2 MG Tablet 1 MG PO ×3 (04:02→16:48)
[2023-02-03] MEDS: 0.9% Normal Saline (1000mL) 1,000 ML 150 ML IV ×2 (04:06→21:14)
[2023-02-03 04:46] VITALS: BMI 42.9
[2023-02-03] MEDS: Cefepime HCl 2 GM in 0.9% Normal Saline (100mL MB+) 100 ML IV ×2 (05:59→14:11)
[2023-02-03] MEDS: Menthol/Lanolin/Calamine/Znox 113 GM Tube 1 APPLIC TOPICAL ×2 (06:01→21:17)
[2023-02-03] MEDS: metroNIDAZOLE 500 MG Tablet PO ×3 (06:05→21:17)
[2023-02-03] MEDS: Acetaminophen 500 MG Tablet 1000 MG PO ×3 (06:05→21:17)
[2023-02-03 06:40] LABS: Bedside Glucose 111 mg/dL (74-106)
[2023-02-03 06:44] LABS: Partial Thromboplast Time 62.1 Seconds (24.1-36.2)
[2023-02-03 06:59] LABS: Vancomycin, Random Level 16.5 ug/mL (0.0-15.0)
[2023-02-03 07:34] VITALS: O2SAT 96
--- NOTE | 2023-02-03 07:42 | PCM.RX.CS ---
Consult Antibiotic Management Pharmacy has been consulted to manage selected antiobiotic: Vancomycin Type of Intervention Type of Consult: Follow-up Labs Labs: Sodium 133 mmol/L (136-145) L 02/02/23 03:46 Potassium 3.8 mmol/L (3.5-5.1) 02/02/23 03:46 Chloride 97 mmol/L (98-107) L 02/02/23 03:46 Carbon Dioxide 30.0 mmol/L (21.0-32.0) 02/02/23 03:46 Anion Gap 6 (5-15) 02/02/23 03:46 BUN 40 mg/dL (7-18) H 02/02/23 03:46 Creatinine 0.71 mg/dL (0.70-1.30) 02/02/23 03:46 Est GFR (MDRD) Af Amer 147 mL/min (>60) 02/02/23 03:46 Est GFR (MDRD) Non-Af 122 mL/min (>60) 02/02/23 03:46 BUN/Creatinine Ratio 56.2 RATIO (10-20) H 02/02/23 03:46 Glucose 57 mg/dL (74-106) L 02/02/23 03:46 Vancomycin Trough 31.0 ug/mL (5.0-15.0) H 02/02/23 13:24 Random Vancomycin 16.5 ug/mL (0.0-15.0) H 02/03/23 06:09 Microbiology Microbiology: Microbiology 02/01/23 12:09 Blood Culture (Wb) - Right Wrist Blood Culture - Preliminary No growth in 48 hours. 02/01/23 11:45 Blood Culture (Wb) - Anticubital Left Blood Culture - Preliminary No growth in 48 hours. 02/02/23 17:13 Nasal Secretion SARS-CoV-2 Antigen (Rapid) - Final 02/01/23 12:02 Urine Catheter - Campbell Urine Culture - Preliminary GNR Poss Pseudomonas sp 02/01/23 12:16 Mucosa - Nasopharyngeal Respiratory Panel (PCR) - Final Goal Trough Goal Trough: 15-20 mcg/mL Pharmacy Plan for Drug Dosing Pharmacy Plan for Drug Dosing: VANCOMYCIN LEVEL RECEIVED Current Vancomycin Dose: ON HOLD- Previously had elevated trough Number of Doses Received: 3 Vancomycin Level: 16.5 Hours Since Last Dose: 24.5hr Renal Function: 0.71 Renal Function Trend: stable Lab/Micro: pending Vancomycin Plan/Comments: Patient had a random trough drawn this morning after holding vancomycin d/t elevated trough. This resulted in a value of 16.5 (goal 15-20). Since patient is now within therapeutic goal range for vancomycin, will plan to restart vancomycin this morning. Will start patient on vancomycin 1500mg IV Q12hr to start 02/03/23 @0900 Pending Level: 02/04/23 @2030, prior to 4th dose of new regimen. Pharmacy Service will continue to monitor and adjust dosing as required.
[2023-02-03 08:03] LABS: Anion Gap 6 (5-15); BUN 32 mg/dL (7-18); BUN/Creat Ratio 49.7 RATIO (10-20); Chloride 102 mmol/L (98-107); Creatinine, Serum 0.64 mg/dL (0.70-1.30); EST Glomerular Filtration Rate 137 mL/min (>60); Est Glom Filt Rate - Afr Amer 165 mL/min (>60); Estimated Creatinine Clearance 143.14 ml/min; Glucose 127 mg/dL (74-106); Sodium Level 136 mmol/L (136-145)
[2023-02-03 08:10] LABS: Absolute Lymphocyte Count 2.06 X10^3/uL (0.83-4.51); Absolute Neutrophil Count 7.6 X10^3/uL (2.0-7.7); Basophil# 0.08 X10^3/uL; Basophil% 0.7 % (0-1); Eosinophil# 0.18 X10^3/uL; Eosinophils% 1.6 % (0-5); Hematocrit 27.9 % (40-54); Hemoglobin 8.2 g/dL (13.0-16.5); Lymphocyte # 2.06 X10^3/ul (0.83-4.51); Lymphocyte % 18.6 % (19-41); Mean Corp Hgb Conc 29.4 g/dL (32-36); Mean Corpuscular Hgb 22.8 pg (27.0-32.0); Mean Corpuscular Volume 77.7 fL (80-94); Monocyte# 1.06 X10^3/uL; Monocyte% 9.6 % (0-10); NRBC Flagged by Analyzer 0 % (0-5); Neutrophil # 7.61 X10^3/uL (2.7-7.7); Neutrophil % 68.8 % (47-70); Platelet Count 377 K/mm3 (150-450); RBC Distribution Width CV 19.5 % (11.6-14.6); RBC Distribution Width SD 55.1 fl (35.1-43.9); Red Blood Count 3.59 M/mm3 (4.6-6.2); White Blood Count 11.1 K/mm3 (4.4-11.0)
[2023-02-03 09:00] VITALS: BP 127/68; PULSE 88; RESP 18; TEMP 36.3; O2SAT 99
[2023-02-03] MEDS: Vancomycin HCl 1,500 MG in 0.9% Normal Saline (500mL Bag) 500 ML 250 MG IV ×2 (09:18→21:25)
[2023-02-03] MEDS: Aspirin 81 MG TAB.CHEW PO (09:19)
[2023-02-03] MEDS: Multivitamins,Ther W-Minerals Tablet 1 TABLET PO (09:19)
[2023-02-03 09:52] LABS: Pathologist Review Reviewed
--- NOTE | 2023-02-03 10:51 | PN.ID_ITS ---
Physical Exam Narrative Feeling ok, pain controlled, no fever, no n/v Const alert and no apparent distress Resp normal air movement and clear to auscultation bilaterally Cardio regular rate and regular rhythm GI soft to palpation, non-tender and non-distended Skin Skin Narrative: no new rash ID ID: Route of nutrition/ use of supplements: [] Nutritional Intake: [] IV Site: [] Campbell Catheter: [] Assessment & Plan Assessment/Plan (1) Pressure injury, unstageable, with eschar: (2) Bilateral pulmonary embolism: (3) Acute osteomyelitis of spine: PLAN: Treating for osteo, spine surgery has seen, MRI done. Recent surgery in [place], hardware in place. On vanc/cefepime/flagyl for better spine penetration compared to zosyn. Ucx with PsA - heavy pyuria, abx as above cellulitis and decub ulcer - wound care following. Will follow, transfer planned (4) Cellulitis of leg without foot, right: (5) Cellulitis of leg without foot, left:
--- NOTE | 2023-02-03 11:14 | PN_ITS ---
Subjective Subjective Patient seen and examined. He had no active complaints and had an uneventful night. He is awaiting transfer to [facility]. Objective Data Objective Data Vital Signs: Vital Signs Temp Pulse Resp BP Pulse Ox O2 Del Method O2 Flow Rate 97.4 F L 88 18 127/68 H 99 Nasal Cannula 2 02/03/23 09:00 02/03/23 09:00 02/03/23 09:00 02/03/23 09:00 02/03/23 09:00 02/03/23 09:00 02/03/23 09:00 Oxygen Flow Rate (L/min) 2 Oxygen Delivery Method Nasal Cannula Weight: 316 lb 5.813 oz Body Mass Index (BMI) 42.9 Intake & Output: Intake and Output for Last 24 Hours 02/01/23 02/02/23 02/03/23 23:59 23:59 23:59 Intake Total 1090 / 1240 2810.0 / 3310.0 2967.05 / 2967.05 Output Total 2850 / 3550 1200 / 1200 Balance 1090 / -160 -40.0 / -240.0 1767.05 / 1767.05 Medical Nutrition Assessment Dietitian: Malnutrition Criteria Met Start: 02/02/23 16:03 Freq: Status: Active Protocol: Document 02/02/23 16:03 (Rec: 02/02/23 16:03 [id number]) Nutrition Malnutrition Evidence of Malnutrition Exists Yes Malnutrition (severe): Chronic Evidenced By Suboptimal Energy Intake ( Severe),Weight Loss (Severe) Clinical Problem Chronic Disease or Condition Related Malnutrition Etiology severe malnutrition related to inadequate energy intake w/ recent spine injury Signs/Symptoms as evidenced by unintentional 14% wt loss x 2 months, estimated PO intake meeting < 75% of estimated energy needs x 2 months Status Active Problem Recommendation Dietitian Recommendations/Changes continue CHO controlled diet as tolerated; will monitor plan of care and provide ONS as appropriate, will benefit from Wiliam BID d/t wounds. Lab / Micro Data 02/03/23 06:09 02/03/23 06:09 Labs: Laboratory Results - last 24 hr 02/01/23 11:45: Diff Path Review Reviewed 02/02/23 12:07: POC Glucose 50 L 02/02/23 13:24: APTT 55.1 H, Vancomycin Trough 31.0 H 02/02/23 14:05: POC Glucose 59 L 02/02/23 16:43: POC Glucose 67 L 02/02/23 19:45: POC Glucose 127 H 02/03/23 01:59: POC Glucose 145 H 02/03/23 06:09: WBC 11.1 H, RBC 3.59 L, Hgb 8.2 L, Hct 27.9 L, MCV 77.7 L, MCH 22.8 L, MCHC 29.4 L, RDW Std Deviation 55.1 H, RDW Coeff of Mary 19.5 H, Plt Count 377, MPV 10.0, Immature Gran % (Auto) 0.700, Neut % (Auto) 68.8, Lymph % (Auto) 18.6 L, Johnson % (Auto) 9.6, Eos % (Auto) 1.6, Baso % (Auto) 0.7, Absolute Neuts (auto) 7.6, Absolute Lymphs (auto) 2.06, Nucleated RBC % 0, APTT 62.1 H, Sodium 136, Potassium 4.0, Chloride 102, Carbon Dioxide 28.0, Anion Gap 6, BUN 32 H, Creatinine 0.64 L, Estim Creat Clear Calc 143.14, Est GFR (MDRD) Af Amer 165, Est GFR (MDRD) Non-Af 137, BUN/Creatinine Ratio 49.7 H, Glucose 127 H, Calcium 8.0 L, Random Vancomycin 16.5 H 02/03/23 06:20: POC Glucose 111 H Micro: Microbiology 02/01/23 12:02 Urine Catheter - Bartlett Urine Culture - Preliminary Pseudomonas aeruginosa 02/01/23 12:09 Blood Culture (Wb) - Right Wrist Blood Culture - Preliminary No growth in 48 hours. 02/01/23 11:45 Blood Culture (Wb) - Anticubital Left Blood Culture - Preliminary No growth in 48 hours. 02/02/23 17:13 Nasal Secretion SARS-CoV-2 Antigen (Rapid) - Final 02/01/23 12:16 Mucosa - Nasopharyngeal Respiratory Panel (PCR) - Final Radiography Diagnostic Testing: Radiology Impression Echocardiogram 02/01/23 19:39 Interpretation Summary The estimated ejection fraction is 65 %. Unable to assess diastolic dysfunction. Ordering Physician: Terri Nino Referring Physician: Wilma Thayer Performed By: Char Gtz RCS Physical Exam Const alert, oriented x3 and no apparent distress Constitutional Narrative: super morbid obesity General Appearance: cooperative HEENT normocephalic, head/scalp atraumatic, moist oral mucous membranes and oropharynx normal Eyes PERRL and EOMs intact bilaterally Neck no lymphadenopathy, supple and no JVD Lymph Lymphatic: no lymphadenopathy noted and no lymphedema noted Resp Resp Narrative: mildly diminished breath sounds bibasally, no wheezes or crackles. On 2L of oxygen by nasal canula Cardio regular rate, regular rhythm, S1 normal heart sound, S2 normal heart sound and no murmurs GI normal to inspection, nondistended, normoactive bowel sounds, soft to palpation, non-tender and non-distended GI Narrative: obese abdomen Extremity normal capillary refill and no clubbing, cyanosis or edema Skin Skin Narrative: both lower extremities wrapped in bandage. Intact dressing over lower back at site of sacral decubitus ulcers Neuro CN's II-XII intact bilaterally Neuro Narrative: power in RUE and LUE is 5/5. Power in lower extremities is 0/5 Psych thought process normal, cooperative and affect normal Appearance: appropriate Assessment & Plan Assessment/Plan (1) Bilateral pulmonary embolism: (2) Rhabdomyolysis: (3) Community acquired pneumonia: (4) Acute osteomyelitis of spine: PLAN: Plan #Hypoxia due to right lower lobe pneumonia * complicated by BATOOL * on IV vancomycin and zosyn * sputum culture pending. COVID negative and respiratory panel negative * on 2L of oxygen. Titrate oxygen to maintain sats >90% * #Bilateral PE * as seen on CTA. * on heparin drip * * #Probable acute osteomyelitis of T9 * came in with severe chronic back pain * had a recent fall with L1 injury and resultant paraplegia * he recently had surgery in [place]. He is unable to say exactly what he had the surgery for * CT of the thoracic and lumbar spine showed acute kyphotic deformity at T9-T10 with almost complete collapse and destruction of the T9 vertebrae * MRi of the lumbar spine was ordered but not done as MRI department felt that per the CT lumbar spine images, he had multilevel screws and sharif fixation in the spine, this would limit the efficacy of the the MRI. * Spine surgery consulted. Dr Curtis reviewed images and recommended urgent transfer to a tertiary facility for evaluation for surgery due to complete collapse of T9 * on IV vancomycin, cefepime and flagyl. * records requested from [facility] in [place] where he had the spine surgery- per records from [facility] in [place], [place], he had left T10/T11 exploration of spina fusion with re-exploration of laminectomy and partial facetectomy and foraminotomy. * awaiting transfer to [facility] where he has been acceped pending bed availability * #Elevated troponins * troponins were 151 on admission, and trended down to 123. * 2D echo showed Ef of 65%, unable to assess diastolic dysfunction. * on heparin drip. * this elevation in troponin can be explained by bilateral PE, and not really nonstemi. * #Unstageable sacral decubitus ulcer with eschar * present on admission. Wound care and plastic surgery on board * #UTI: * concern for colonisation due to chronic indwelling bartlett catheter * currently on antibiotics as above * ID on board. * urine cuotures growing Pseudomonas. Blood cultures negative after 48 hours * #Rhabdomyolysis: CPK was 4735. Continue gentle hydration and trend #Type 2 diabetes mellitus * Had several episodes of hypoglycemia since admission. All diabetes medication on hold. Being hydrated with D5 NS. * ISS. Acuchecks ACHS * * #Super morbid obesity. Complicates acute care, expected recovery and prognosis. #Paraplegia due to mechanical fall with resultant L1 injury * Recently had surgery in [place]. Records requested from [facility]. * DVT prophylaxis; on heparin drip due to bilateral PE Disposition: Awaiting transfer to tertiary center. Accepted at [facility], pending bed availability. Charges/Coding Visit Charges Inpatient E&M: 36447 Subs Hosp L2
[2023-02-03 11:45] VITALS: BP 145/71; PULSE 90; RESP 18; TEMP 36.5; O2SAT 96
[2023-02-03] MEDS: HEPARIN/D5w 25,000 UNITS 25,000 UNITS/250 ML IV.SOLN. 17 UNITS CONT INF (14:08)
[2023-02-03] MEDS: Insulin Lispro 100 UNIT/ML INSULN.PEN SC (14:23)
[2023-02-03 16:00] VITALS: BP 122/56; PULSE 106; RESP 18; TEMP 36.8; O2SAT 94
[2023-02-03] MEDS: Silver Sulfadiazine 1% Crm 50 gm Bottle 1 APPLIC TOPICAL (16:39)
[2023-02-03] MEDS: Miconazole Nitrate 43 GM Bottle 1 APPLIC TOPICAL (21:16)
[2023-02-03 21:17] LABS: Bedside Glucose 106 mg/dL (74-106)
[2023-02-03 21:17] LABS: Bedside Glucose 181 mg/dL (74-106)
[2023-02-03 21:17] LABS: Bedside Glucose 228 mg/dL (74-106)
[2023-02-03 22:43] VITALS: BP 115/54; PULSE 99; RESP 16; TEMP 36.8; O2SAT 100
[2023-02-03 23:58] LABS: Bedside Glucose 185 mg/dL (74-106)
[2023-02-04] VITALS (7 sets, daily range): BP systolic 108–143; BP diastolic 63–82; PULSE 82–97; RESP 16–18; TEMP 36.6–37.1; O2SAT 95–100; BMI 43.4
[2023-02-04] MEDS: Cefepime HCl 2 GM in 0.9% Normal Saline (100mL MB+) 100 ML IV ×4 (00:05→21:59)
[2023-02-04] MEDS: tiZANidine HCl 2 MG Tablet 4 MG PO ×3 (01:10→22:04)
[2023-02-04 01:32] LABS: Bedside Glucose 111 mg/dL (74-106)
[2023-02-04 02:21] LABS: Bedside Glucose 205 mg/dL (74-106)
[2023-02-04] MEDS: 0.9% Normal Saline (1000mL) 1,000 ML 150 ML IV (04:06)
[2023-02-04] MEDS: HEPARIN/D5w 25,000 UNITS 25,000 UNITS/250 ML IV.SOLN. 17 UNITS CONT INF ×2 (04:07→18:32)
[2023-02-04] MEDS: oxyCODONE 5 MG Tablet 10 MG PO ×3 (04:43→18:30)
[2023-02-04] MEDS: Acetaminophen 500 MG Tablet 1000 MG PO ×3 (05:42→21:59)
[2023-02-04] MEDS: metroNIDAZOLE 500 MG Tablet PO ×4 (05:43→22:01)
[2023-02-04 06:17] LABS: Absolute Lymphocyte Count 1.93 X10^3/uL (0.83-4.51); Absolute Neutrophil Count 5.6 X10^3/uL (2.0-7.7); Basophil# 0.05 X10^3/uL; Basophil% 0.6 % (0-1); Eosinophil# 0.25 X10^3/uL; Eosinophils% 2.9 % (0-5); Hematocrit 28.3 % (40-54); Hemoglobin 8.1 g/dL (13.0-16.5); Lymphocyte # 1.93 X10^3/ul (0.83-4.51); Lymphocyte % 22.1 % (19-41); Mean Corp Hgb Conc 28.6 g/dL (32-36); Mean Corpuscular Hgb 22.4 pg (27.0-32.0); Mean Corpuscular Volume 78.2 fL (80-94); Mean Platelet Vol. 9.2 fl (6.2-12.0); Monocyte# 0.82 X10^3/uL; Monocyte% 9.4 % (0-10); NRBC Flagged by Analyzer 0 % (0-5); Neutrophil # 5.61 X10^3/uL (2.7-7.7); Neutrophil % 64.1 % (47-70); Platelet Count 322 K/mm3 (150-450); RBC Distribution Width CV 19.3 % (11.6-14.6); RBC Distribution Width SD 55.1 fl (35.1-43.9); Red Blood Count 3.62 M/mm3 (4.6-6.2); White Blood Count 8.7 K/mm3 (4.4-11.0)
[2023-02-04 06:25] LABS: Partial Thromboplast Time 59.4 Seconds (24.1-36.2)
[2023-02-04 06:44] LABS: Anion Gap 5 (5-15); BUN 17 mg/dL (7-18); BUN/Creat Ratio 32.9 RATIO (10-20); Chloride 103 mmol/L (98-107); Creatinine, Serum 0.52 mg/dL (0.70-1.30); EST Glomerular Filtration Rate 176 mL/min (>60); Est Glom Filt Rate - Afr Amer 213 mL/min (>60); Estimated Creatinine Clearance 176.18 ml/min; Glucose 200 mg/dL (74-106); Potassium 3.9 mmol/L (3.5-5.1); Sodium Level 136 mmol/L (136-145)
[2023-02-04 06:58] LABS: Bedside Glucose 174 mg/dL (74-106)
[2023-02-04] MEDS: Ondansetron 4 MG/2 ML Vial IV (08:53)
[2023-02-04 09:39] LABS: Bedside Glucose 187 mg/dL (74-106)
[2023-02-04] MEDS: Polyethylene Glycol 3350 17 GM PACKET PO ×3 (09:52→21:59)
[2023-02-04] MEDS: Vancomycin HCl 1,500 MG in 0.9% Normal Saline (500mL Bag) 500 ML 250 MG IV (09:53)
[2023-02-04] MEDS: Multivitamins,Ther W-Minerals Tablet 1 TABLET PO (09:56)
[2023-02-04] MEDS: Aspirin 81 MG TAB.CHEW PO (09:56)
--- NOTE | 2023-02-04 13:44 | PN_ITS ---
Subjective Subjective Patient seen and examined. He had no complaints. He had an uneventful night and review of systems otherwise negative. He is awaiting transfer to [facility] pending bed availability. Objective Data Objective Data Vital Signs: Vital Signs Temp Pulse Resp BP Pulse Ox O2 Del Method O2 Flow Rate 98.1 F 92 16 140/72 H 99 Nasal Cannula 2 02/04/23 11:56 02/04/23 11:56 02/04/23 11:56 02/04/23 11:56 02/04/23 11:56 02/04/23 11:56 02/04/23 11:56 Oxygen Flow Rate (L/min) 2 Oxygen Delivery Method Nasal Cannula Weight: 320 lb 5.306 oz Body Mass Index (BMI) 43.4 Intake & Output: Intake and Output for Last 24 Hours 02/02/23 02/03/23 02/04/23 23:59 23:59 23:59 Intake Total 2810.0 / 3310.0 4420.00 / 4660.00 2982.77 / 2982.77 Output Total 2850 / 3550 1200 / 2600 2100 / 2100 Balance -40.0 / -240.0 3220.00 / 2060.00 882.77 / 882.77 Medical Nutrition Assessment Dietitian: Malnutrition Criteria Met Start: 02/02/23 16:03 Freq: Status: Active Protocol: Document 02/02/23 16:03 (Rec: 02/02/23 16:03 [id number]) Nutrition Malnutrition Evidence of Malnutrition Exists Yes Malnutrition (severe): Chronic Evidenced By Suboptimal Energy Intake ( Severe),Weight Loss (Severe) Clinical Problem Chronic Disease or Condition Related Malnutrition Etiology severe malnutrition related to inadequate energy intake w/ recent spine injury Signs/Symptoms as evidenced by unintentional 14% wt loss x 2 months, estimated PO intake meeting < 75% of estimated energy needs x 2 months Status Active Problem Recommendation Dietitian Recommendations/Changes continue CHO controlled diet as tolerated; will monitor plan of care and provide ONS as appropriate, will benefit from Wiliam BID d/t wounds. Lab / Micro Data 02/04/23 06:00 02/04/23 06:00 Labs: Laboratory Results - last 24 hr 02/03/23 09:31: POC Glucose 106 02/03/23 11:38: POC Glucose 181 H 02/03/23 14:19: POC Glucose 228 H 02/03/23 20:06: POC Glucose 185 H 02/04/23 00:11: POC Glucose 111 H 02/04/23 02:02: POC Glucose 205 H 02/04/23 06:00: WBC 8.7, RBC 3.62 L, Hgb 8.1 L, Hct 28.3 L, MCV 78.2 L, MCH 22.4 L, MCHC 28.6 L, RDW Std Deviation 55.1 H, RDW Coeff of Mary 19.3 H, Plt Count 3 22, MPV 9.2, Immature Gran % (Auto) 0.900, Neut % (Auto) 64.1, Lymph % (Auto) 22.1, Blackford % (Auto) 9.4, Eos % (Auto) 2.9, Baso % (Auto) 0.6, Absolute Neuts (auto) 5.6, Absolute Lymphs (auto) 1.93, Nucleated RBC % 0, APTT 59.4 H, Sodium 136, Potassium 3.9, Chloride 103, Carbon Dioxide 28.0, Anion Gap 5, BUN 17, Creatinine 0.52 L, Estim Creat Clear Calc 176.18, Est GFR (MDRD) Af Amer 213, Est GFR (MDRD) Non-Af 176, BUN/Creatinine Ratio 32.9 H, Glucose 200 H, Calcium 8.0 L 02/04/23 06:37: POC Glucose 174 H 02/04/23 08:48: POC Glucose 187 H Micro: Microbiology 02/01/23 12:02 Urine Catheter - Bartlett Urine Culture - Final Pseudomonas aeruginosa 02/01/23 12:09 Blood Culture (Wb) - Right Wrist Blood Culture - Preliminary No growth in 48 hours. 02/01/23 11:45 Blood Culture (Wb) - Anticubital Left Blood Culture - Preliminary No growth in 48 hours. 02/02/23 17:13 Nasal Secretion SARS-CoV-2 Antigen (Rapid) - Final 02/01/23 12:16 Mucosa - Nasopharyngeal Respiratory Panel (PCR) - Final Physical Exam Const alert, oriented x3 and no apparent distress Constitutional Narrative: super morbid obesity General Appearance: cooperative HEENT normocephalic, head/scalp atraumatic, moist oral mucous membranes and oropharynx normal Eyes PERRL and EOMs intact bilaterally Neck no lymphadenopathy, supple and no JVD Lymph Lymphatic: no lymphadenopathy noted and no lymphedema noted Resp Resp Narrative: mildly diminished breath sounds bibasally, no wheezes or crackles. On 2L of oxygen by nasal canula Cardio regular rate, regular rhythm, S1 normal heart sound, S2 normal heart sound and no murmurs GI normal to inspection, nondistended, normoactive bowel sounds, soft to palpation, non-tender and non-distended GI Narrative: obese abdomen Extremity normal capillary refill and no clubbing, cyanosis or edema Skin Skin Narrative: both lower extremities wrapped in bandage. Intact dressing over lower back at site of sacral decubitus ulcers Neuro CN's II-XII intact bilaterally Neuro Narrative: power in RUE and LUE is 5/5. Power in lower extremities is 0/5 Psych thought process normal, cooperative and affect normal Appearance: appropriate Assessment & Plan Assessment/Plan (1) Bilateral pulmonary embolism: (2) Rhabdomyolysis: (3) Community acquired pneumonia: (4) Acute osteomyelitis of spine: PLAN: Plan #Hypoxia due to right lower lobe pneumonia * complicated by BATOOL * on IV vancomycin and zosyn * COVID negative and respiratory panel negative * on 2L of oxygen. Titrate oxygen to maintain sats >90% * #Bilateral PE * as seen on CTA. * on heparin drip * * #Probable acute osteomyelitis of T9 * came in with severe chronic back pain * had a recent fall with L1 injury and resultant paraplegia * he recently had surgery in [place]. He is unable to say exactly what he had the surgery for * CT of the thoracic and lumbar spine showed acute kyphotic deformity at T9-T10 with almost complete collapse and destruction of the T9 vertebrae * MRi of the lumbar spine was ordered but not done as MRI department felt that per the CT lumbar spine images, he had multilevel screws and sharif fixation in the spine, this would limit the efficacy of the the MRI. * Spine surgery consulted. Dr Curtis reviewed images and recommended urgent transfer to a tertiary facility for evaluation for surgery due to complete collapse of T9 * on IV vancomycin, cefepime and flagyl. * records requested from [facility] in [place] where he had the spine surgery- per records from [facility] in [place], [place], he had left T10/T11 exploration of spina fusion with re-exploration of laminectomy and partial facetectomy and foraminotomy. * awaiting transfer to [facility] where he has been acceped pending bed availability * blood cultures negative. * #Elevated troponins * troponins were 151 on admission, and trended down to 123. * 2D echo showed Ef of 65%, unable to assess diastolic dysfunction. * on heparin drip. * this elevation in troponin can be explained by bilateral PE, and not really nonstemi. * #Unstageable sacral decubitus ulcer with eschar * present on admission. Wound care and plastic surgery on board * #UTI: * concern for colonisation due to chronic indwelling bartlett catheter * currently on antibiotics as above * ID on board. * urine cultures growing Pseudomonas. Blood cultures negative after 48 hours * #Rhabdomyolysis: resolved with IVF hydration #Type 2 diabetes mellitus * ISS. Acuchecks ACHS * * #Super morbid obesity. Complicates acute care, expected recovery and prognosis. #Paraplegia due to mechanical fall with resultant L1 injury * Recently had surgery in [place]. Records requested from [facility]. * DVT prophylaxis; on heparin drip due to bilateral PE Disposition: Awaiting transfer to tertiary center. Accepted at [facility], pending bed availability. Charges/Coding Visit Charges Inpatient E&M: 62995 Subs Hosp L2
[2023-02-04] MEDS: Silver Sulfadiazine 1% Crm 50 gm Bottle 1 APPLIC TOPICAL (18:34)
[2023-02-04] MEDS: Miconazole Nitrate 43 GM Bottle 1 APPLIC TOPICAL ×2 (18:34→21:58)
[2023-02-04] MEDS: Menthol/Lanolin/Calamine/Znox 113 GM Tube 1 APPLIC TOPICAL (18:34)
[2023-02-04 19:19] LABS: Bedside Glucose 139 mg/dL (74-106)
[2023-02-04 19:19] LABS: Bedside Glucose 182 mg/dL (74-106)
[2023-02-04 21:15] LABS: Vancomycin, Trough Level 20.6 ug/mL (5.0-15.0)
--- NOTE | 2023-02-04 21:36 | PCM.RX.CS ---
Consult Antibiotic Management Pharmacy has been consulted to manage selected antiobiotic: Vancomycin Type of Intervention Type of Consult: Follow-up Labs Labs: Sodium 136 mmol/L (136-145) 02/04/23 06:00 Potassium 3.9 mmol/L (3.5-5.1) 02/04/23 06:00 Chloride 103 mmol/L (98-107) 02/04/23 06:00 Carbon Dioxide 28.0 mmol/L (21.0-32.0) 02/04/23 06:00 Anion Gap 5 (5-15) 02/04/23 06:00 BUN 17 mg/dL (7-18) 02/04/23 06:00 Creatinine 0.52 mg/dL (0.70-1.30) L 02/04/23 06:00 Est GFR (MDRD) Af Amer 213 mL/min (>60) 02/04/23 06:00 Est GFR (MDRD) Non-Af 176 mL/min (>60) 02/04/23 06:00 BUN/Creatinine Ratio 32.9 RATIO (10-20) H 02/04/23 06:00 Glucose 200 mg/dL (74-106) H 02/04/23 06:00 Vancomycin Trough 20.6 ug/mL (5.0-15.0) H 02/04/23 20:11 Random Vancomycin 16.5 ug/mL (0.0-15.0) H 02/03/23 06:09 Microbiology Microbiology: Microbiology 02/01/23 12:02 Urine Catheter - Campbell Urine Culture - Final Pseudomonas aeruginosa 02/01/23 12:09 Blood Culture (Wb) - Right Wrist Blood Culture - Preliminary No growth in 48 hours. 02/01/23 11:45 Blood Culture (Wb) - Anticubital Left Blood Culture - Preliminary No growth in 48 hours. 02/02/23 17:13 Nasal Secretion SARS-CoV-2 Antigen (Rapid) - Final 02/01/23 12:16 Mucosa - Nasopharyngeal Respiratory Panel (PCR) - Final Pharmacy Plan for Drug Dosing Pharmacy Plan for Drug Dosing: Pharmacy Service will continue to monitor and adjust dosing as required. TROUGH 20.6. HOLD DOSE AND DRAW RANDOM LEVEL IN 6 HOURS. Follow-Up Labs Follow-Up Labs: Trough: Vancomycin Date/Time Labs Ordered Labs to be done on [date and time ordered]: 02/05 @ 0200
[2023-02-04] MEDS: 0.9% Saline Lock 10 ML Syringe IV (22:13)
[2023-02-04 23:28] LABS: Bedside Glucose 161 mg/dL (74-106)
[2023-02-04 23:57] LABS: Bedside Glucose 163 mg/dL (74-106)
[2023-02-05 00:01] VITALS: BP 128/60; PULSE 81; RESP 16; TEMP 36.8; O2SAT 98
[2023-02-05] MEDS: oxyCODONE 5 MG Tablet 10 MG PO ×5 (00:32→20:53)
[2023-02-05 02:40] LABS: Vancomycin, Random Level 15.4 ug/mL (0.0-15.0)
[2023-02-05] MEDS: Vancomycin HCl 1,250 MG in 0.9% Normal Saline (250mL Bag) 250 ML 167 MG IV ×2 (03:34→15:33)
[2023-02-05] MEDS: 0.9% Saline Lock 10 ML Syringe IV (03:34)
--- NOTE | 2023-02-05 03:35 | PCM.RX.CS ---
Consult Antibiotic Management Pharmacy has been consulted to manage selected antiobiotic: Vancomycin Type of Intervention Type of Consult: Follow-up Labs Labs: Sodium 136 mmol/L (136-145) 02/04/23 06:00 Potassium 3.9 mmol/L (3.5-5.1) 02/04/23 06:00 Chloride 103 mmol/L (98-107) 02/04/23 06:00 Carbon Dioxide 28.0 mmol/L (21.0-32.0) 02/04/23 06:00 Anion Gap 5 (5-15) 02/04/23 06:00 BUN 17 mg/dL (7-18) 02/04/23 06:00 Creatinine 0.52 mg/dL (0.70-1.30) L 02/04/23 06:00 Est GFR (MDRD) Af Amer 213 mL/min (>60) 02/04/23 06:00 Est GFR (MDRD) Non-Af 176 mL/min (>60) 02/04/23 06:00 BUN/Creatinine Ratio 32.9 RATIO (10-20) H 02/04/23 06:00 Glucose 200 mg/dL (74-106) H 02/04/23 06:00 Vancomycin Trough 20.6 ug/mL (5.0-15.0) H 02/04/23 20:11 Random Vancomycin 15.4 ug/mL (0.0-15.0) H 02/05/23 01:47 Microbiology Microbiology: Microbiology 02/01/23 12:02 Urine Catheter - Campbell Urine Culture - Final Pseudomonas aeruginosa 02/01/23 12:09 Blood Culture (Wb) - Right Wrist Blood Culture - Preliminary No growth in 48 hours. 02/01/23 11:45 Blood Culture (Wb) - Anticubital Left Blood Culture - Preliminary No growth in 48 hours. 02/02/23 17:13 Nasal Secretion SARS-CoV-2 Antigen (Rapid) - Final 02/01/23 12:16 Mucosa - Nasopharyngeal Respiratory Panel (PCR) - Final Pharmacy Plan for Drug Dosing Pharmacy Plan for Drug Dosing: Pharmacy Service will continue to monitor and adjust dosing as required. RANDOM LEVEL 15.4. START 1250MG Q12H AND FOLLOW UP TROUGH PRIOR TO 4TH DOSE Follow-Up Labs Follow-Up Labs: Trough: Vancomycin Date/Time Labs Ordered Labs to be done on [date and time ordered]: 02/06 @ 1500
[2023-02-05 03:48] VITALS: BP 138/75; PULSE 79; RESP 16; TEMP 36.4; O2SAT 94
[2023-02-05] MEDS: tiZANidine HCl 2 MG Tablet 4 MG PO ×2 (04:04→15:31)
[2023-02-05 04:20] VITALS: BMI 43.8
[2023-02-05] MEDS: Cefepime HCl 2 GM in 0.9% Normal Saline (100mL MB+) 100 ML IV ×3 (06:13→21:20)
[2023-02-05] MEDS: Acetaminophen 500 MG Tablet 1000 MG PO ×3 (06:14→20:52)
[2023-02-05 06:16] LABS: Absolute Lymphocyte Count 2.16 X10^3/uL (0.83-4.51); Absolute Neutrophil Count 5.4 X10^3/uL (2.0-7.7); Basophil# 0.06 X10^3/uL; Basophil% 0.7 % (0-1); Eosinophil# 0.43 X10^3/uL; Eosinophils% 4.8 % (0-5); Hematocrit 27.4 % (40-54); Hemoglobin 7.9 g/dL (13.0-16.5); Lymphocyte # 2.16 X10^3/ul (0.83-4.51); Lymphocyte % 23.9 % (19-41); Mean Corp Hgb Conc 28.8 g/dL (32-36); Mean Corpuscular Hgb 22.5 pg (27.0-32.0); Mean Corpuscular Volume 78.1 fL (80-94); Mean Platelet Vol. 8.7 fl (6.2-12.0); Monocyte# 0.95 X10^3/uL; Monocyte% 10.5 % (0-10); NRBC Flagged by Analyzer 0 % (0-5); Neutrophil # 5.35 X10^3/uL (2.7-7.7); Platelet Count 269 K/mm3 (150-450); RBC Distribution Width CV 19.3 % (11.6-14.6); RBC Distribution Width SD 54.3 fl (35.1-43.9); Red Blood Count 3.51 M/mm3 (4.6-6.2); White Blood Count 9.1 K/mm3 (4.4-11.0)
[2023-02-05 07:00] LABS: Partial Thromboplast Time 91.4 Seconds (24.1-36.2)
[2023-02-05 07:06] LABS: Anion Gap 5 (5-15); BUN 12 mg/dL (7-18); Calcium,Total 8.3 mg/dL (8.5-10.1); Chloride 104 mmol/L (98-107); Creatinine, Serum 0.44 mg/dL (0.70-1.30); EST Glomerular Filtration Rate 210 mL/min (>60); Est Glom Filt Rate - Afr Amer 254 mL/min (>60); Estimated Creatinine Clearance 208.21 ml/min; Glucose 167 mg/dL (74-106); Potassium 4.1 mmol/L (3.5-5.1); Sodium Level 136 mmol/L (136-145)
[2023-02-05 07:07] LABS: Bedside Glucose 159 mg/dL (74-106)
--- NOTE | 2023-02-05 08:00 | DS.PCM_ITS ---
Providers Date of Admission: 02/01/23 Date of Discharge: 02/06/23 Primary Care Physician: Dr. 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 Routine Comment: Reason for Consult:: posterior wounds, heel wounds Consult: Plastic Surgery Routine Consulting Provider: Calista Aburto Reason for Consult: Posterior wounds s/p heating pad EMERGENT Consult: No MD Notified: Yes Date Notified: 02/01/23 Time Notified: 17:03 Method of Notification: Text 02/02/23 09:30 Consult: Infectious Disease Routine Consulting Provider: Jewel Cm Reason for Consult: Osteo of spine EMERGENT Consult: No MD Notified: Yes Date Notified: 02/02/23 Time Notified: 09:31 Method of Notification: Answering Service 02/02/23 09:32 Consult: 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 Routine Comment: 02/02/23 10:06 Consult: Infectious Disease Routine Consulting Provider: Jewel Cm Reason for Consult: osteomyelitis of spine EMERGENT Consult: No MD Notified: Yes Date Notified: 02/02/23 Time Notified: 10:07 Method of Notification: Verbal 02/02/23 13:23 Consult: Orthopedics Routine Consulting Provider: Raphael Curtis Reason for Consult: probable osteomyelitis of T9j EMERGENT Consult: No MD Notified: Yes Date Notified: 02/02/23 Time Notified: 13:23 Method of Notification: telephone Reason For Visit: HYPOXIA, RLL PNA, BL PE, NSTEMI, RHABDO, HYPOGLYCE Diagnosis Discharge Diagnosis (1) Bilateral pulmonary embolism: Status: Acute Code(s): I26.99 - Other pulmonary embolism without acute cor pulmonale (2) Rhabdomyolysis: Status: Acute Code(s): M62.82 - Rhabdomyolysis (3) Community acquired pneumonia: Status: Acute Code(s): J18.9 - Pneumonia, unspecified organism (4) Acute osteomyelitis of spine: Status: Acute Code(s): M46.20 - Osteomyelitis of vertebra, site unspecified Plan #Hypoxia due to right lower lobe pneumonia * complicated by BATOOL * on IV vancomycin and zosyn * COVID negative and respiratory panel negative * on room air. * #Bilateral PE * as seen on CTA. * on heparin drip * * #Probable acute osteomyelitis of T9 * came in with severe chronic back pain * had a recent fall with L1 injury and resultant paraplegia * he recently had surgery in [place]. He is unable to say exactly what he had the surgery for * CT of the thoracic and lumbar spine showed acute kyphotic deformity at T9-T10 with almost complete collapse and destruction of the T9 vertebrae * MRi of the lumbar spine was ordered but not done as MRI department felt that per the CT lumbar spine images, he had multilevel screws and sharif fixation in the spine, this would limit the efficacy of the the MRI. * Spine surgery consulted. Dr Curtis reviewed images and recommended urgent transfer to a tertiary facility for evaluation for surgery due to complete collapse of T9 * on IV vancomycin, cefepime and flagyl. * records requested from Hospital in [place] where he had the spine surgery- per records from [facility] in [place], [place], he had left T10/T11 exploration of spina fusion with re-exploration of laminectomy and partial facetectomy and foraminotomy. * awaiting transfer to [facility] where he has been accepted pending bed availability * blood cultures negative. * #Elevated troponins * troponins were 151 on admission, and trended down to 123. * 2D echo showed EF of 65%, unable to assess diastolic dysfunction. * on heparin drip. * this elevation in troponin can be explained by bilateral PE, and not really nonstemi. * #Unstageable sacral decubitus ulcer with eschar * present on admission. Wound care and plastic surgery on board * #UTI: * concern for colonization due to chronic indwelling bartlett catheter * currently on antibiotics as above * ID on board. * urine cultures growing Pseudomonas. Blood cultures negative after 48 hours * #Rhabdomyolysis: resolved with IVF hydration #Anemia: Hb is 7.9 today. baseline is ~ 10 from November 2022. Will monitor. #Type 2 diabetes mellitus * ISS. Acuchecks ACHS * * #Super morbid obesity. Complicates acute care, expected recovery and prognosis. #Paraplegia due to mechanical fall with resultant L1 injury * Recently had surgery in [place]. Records requested from [facility]. * DVT prophylaxis; on heparin drip due to bilateral PE Disposition: Awaiting transfer to tertiary center. Accepted at [facility], pending bed availability. Medications at Discharge Home Medications B-complex with vitamin C 1 tab PO DAILY supplement 03/03/20 ascorbate calcium (vitamin C) 500 mg tablet 500 mg PO DAILY supplement 03/03/20 calcium carbonate 500 mg calcium (1,250 mg) tablet (Calcium 500) 500 mg PO DAILY supplement 03/03/20 cholecalciferol (vitamin D3) 50 mcg (2,000 unit) capsule 50 mcg PO DAILY supplement 03/03/20 diclofenac sodium 50 mg tablet,delayed release 50 mg PO BID supplement 03/03/20 fluticasone propionate 50 mcg/actuation nasal spray,suspension (Flonase Allergy Relief) 1 spray intranasal DAILY shortness of breath 03/03/20 levocetirizine 5 mg tablet (24HR Allergy Relief) 5 mg PO DAILY allergies 03/03/20 olmesartan 40 mg-hydrochlorothiazide 25 mg tablet 1 ea PO DAILY blood pressure 03/03/20 oxycodone-acetaminophen 7.5 mg-325 mg tablet 1 ea PO Q4H PRN Pain 03/03/20 propranolol 10 mg tablet 10 mg PO DAILY Blood pressure 03/03/20 tizanidine 4 mg tablet 1 ea PO TID PRN Spasms 03/03/20 zinc 50 mg tablet 50 mg PO DAILY supplement 03/03/20 Hospital Course Operations None Procedures 2-D Echocardiogram Summary of Care Provided Minutes Spent on Discharge: 45 Hospital Course: Patient is a 57-year-old male with a past medical history of paraplegia due to mechanical fall in November 2022, diabetes and hypertension as well as hy perlipidemia and super morbid obesity. Patient had had a recent spine surgery in [place] on 25 January which was about a week prior to admission. Patient left and came back to [place] in the back of his friends fine 2 days after the surgery. He claims he was cleared to be discharged and told to follow-up with his PCP. Patient came home and about a week after he came home, he was found to be confused with low blood sugars and not acting himself. He was therefore brought into the ED. He also complained of severe back pain. CT of the thoracic and lumbar spine showed acute kyphotic deformity at T9-10 with almost complete collapse and destruction of the T9 vertebrae. There was concern for probable osteomyelitis of T9. He was started on broad-spectrum antibiotics namely vancomycin and cefepime as well as Flagyl. Spine surgery was consulted. MRI of the lumbar spine was ordered but this was not done as per radiology, he had multilevel screws and sharif fixation in the spine and this would limit the efficacy of the MRI. ID was consulted. Spine surgery reviewed patient and recommended that patient be transferred as patient would benefit from surgery due to the complete collapse of T9. Plastic surgery was also consulted. Patient's troponins were elevated on admission and was managed for non-STEMI. He was placed on heparin drip. He also had bilateral PE. CTA was on heparin dr ip. He had an unstageable sacral decubitus ulcer. He therefore had debridement done by plastic surgery. Patient was initially refused transfer at [facility] because they did not think that he needed transfer. However [facility] was called and they agreed with patient being transferred. Patient was therefore transferred to [facility] in the early hours of 02/06/2023. Patient was seen on 02/05/2023. He had no complaints and felt well. Review of systems otherwise otherwise negative. Labs and vitals were reviewed. He was admitted in the very early hours of 02/06/2023 and so could not be seen prior to him being transferred. Physical Exam Const alert, oriented x3 and no apparent distress Constitutional Narrative: super morbid obesity General Appearance: cooperative and comfortable HEENT normocephalic, head/scalp atraumatic, hearing grossly normal bilaterally, moist oral mucous membranes and oropharynx normal Eyes PERRL and EOMs intact bilaterally Neck no lymphadenopathy, supple and no JVD Lymph Lymphatic: no lymphadenopathy noted and no lymphedema noted Resp Resp Narrative: mildly diminished breath sounds bibasally, no wheezes or crackles. On room air. Cardio regular rate, regular rhythm, S1 normal heart sound, S2 normal heart sound and no murmurs GI normal to inspection, nondistended, normoactive bowel sounds, soft to palpation, non-tender and non-distended GI Narrative: obese abdomen Extremity normal capillary refill and no clubbing, cyanosis or edema Skin Skin Narrative: both lower extremities wrapped in bandage. Intact dressing over lower back at site of sacral decubitus ulcers Neuro CN's II-XII intact bilaterally Neuro Narrative: power in RUE and LUE is 5/5. Power in lower extremities is 0/5 Psych thought process normal, cooperative and affect normal Appearance: appropriate Weight / BMI Weight Weight: 323 lb 3.163 oz Body Mass Index (BMI) 43.8 ABG / Lab / Microbiology Data 02/05/23 06:10 02/05/23 06:10 Microbiology: Microbiology 02/01/23 11:45 Blood Culture (Wb) - Anticubital Left Blood Culture - Final No growth in 5 days. 02/01/23 12:09 Blood Culture (Wb) - Right Wrist Blood Culture - Final No growth in 5 days. 02/05/23 17:32 Stool Stool Occult Blood (OCTAVIO) - Final 02/01/23 12:02 Urine Catheter - Bartlett Urine Culture - Final Pseudomonas aeruginosa 02/02/23 17:13 Nasal Secretion SARS-CoV-2 Antigen (Rapid) - Final 02/01/23 12:16 Mucosa - Nasopharyngeal Respiratory Panel (PCR) - Final Meaningful Use Info Meaningful Use Diagnoses (Choose all that apply): VTE VTE Anticoag overlap given w/in hospital stay or rx'd at dc?: Yes Pt receive overlap for 5 days?: No Reason overlap not ordered, prescribed, or given for 5 days: Procedure Not Indicated Discharge Plan Admission Admit Date/Time: 02/01/23 17:01 Attending Provider: Dina Maynard Primary Care Provider: Wilma Thayer Consulting Providers: Calista Aburto; Terri Nino; Jewel Cm; Raphael Curtis Discharge Orders/Prescriptions Prescriptions: No Action oxycodone-acetaminophen 7.5-325 mg tablet 1 ea PO Q4H PRN (Reason: Pain) Patient Comments: ONE TABLET BY MOUTH EVERY 4 HOURS NEEDED FOR SEVERE PAIN diclofenac sodium 50 mg tablet,delayed release (DR/EC) 50 mg PO BID olmesartan-hydrochlorothiazide 40-25 mg tablet 1 ea PO DAILY Patient Comments: TAKE 1 TABLET BY MOUTH EVERY DAY tizanidine 4 mg tablet 1 ea PO TID PRN (Reason: Spasms) Patient Comments: 1 TABLET ORALLY 3 TIMES PER DAY NEEDED FOR MUSCLE SPASM/BACK PAIN propranolol 10 mg tablet 10 mg PO DAILY B-complex with vitamin C Tablet 1 tab PO DAILY cholecalciferol (vitamin D3) 50 mcg (2,000 unit) capsule 50 mcg PO DAILY ascorbate calcium (vitamin C) 500 mg tablet 500 mg PO DAILY zinc 50 mg tablet 50 mg PO DAILY calcium carbonate [Calcium 500] 500 mg calcium (1,250 mg) tablet 500 mg PO DAILY fluticasone propionate [Flonase Allergy Relief] 50 mcg/actuation spray,suspension 1 spray INTRANASAL DAILY Rx Instructions: administer into each nostril levocetirizine [24HR Allergy Relief] 5 mg tablet 5 mg PO DAILY Referrals / Follow Up: Wilma Thayer DO [Primary Care Provider] - Disposition Disposition (needs filled in before D/C Order can be placed): Acute Care Hospital Charges/Coding Visit Charges Inpatient E&M: 59325 Disch Hosp >30min
[2023-02-05] MEDS: HEPARIN/D5w 25,000 UNITS 25,000 UNITS/250 ML IV.SOLN. 16 UNITS CONT INF (08:43)
[2023-02-05 09:28] VITALS: O2SAT 95
[2023-02-05 10:16] VITALS: BP 126/59; PULSE 92; RESP 16; TEMP 36.8; O2SAT 97
[2023-02-05] MEDS: metroNIDAZOLE 500 MG Tablet PO ×3 (10:37→18:26)
[2023-02-05] MEDS: Aspirin 81 MG TAB.CHEW PO (10:37)
[2023-02-05] MEDS: Glucerna Shake 120 ML LIQUID PO (10:37)
[2023-02-05] MEDS: Multivitamins,Ther W-Minerals Tablet 1 TABLET PO (10:38)
[2023-02-05] MEDS: Calcium (Elemental) 500 MG Tablet PO (10:38)
[2023-02-05] MEDS: Losartan Potassium 100 MG Tablet PO (10:39)
[2023-02-05] MEDS: Menthol/Lanolin/Calamine/Znox 113 GM Tube 1 APPLIC TOPICAL ×2 (10:39→18:25)
[2023-02-05] MEDS: Silver Sulfadiazine 1% Crm 50 gm Bottle 1 APPLIC TOPICAL (10:40)
[2023-02-05] MEDS: Propranolol 10 MG Tablet PO (10:40)
[2023-02-05] MEDS: hydroCHLOROthiazide 25 MG Tablet PO (10:40)
[2023-02-05] MEDS: Fluticasone 0.05% 1 SPRAY NASAL.SRY NASAL (10:41)
[2023-02-05] MEDS: Miconazole Nitrate 43 GM Bottle 1 APPLIC TOPICAL ×2 (10:42→21:24)
[2023-02-05] MEDS: Cholecalciferol (VIT D3) 25 MCG TABLET (1,000 UNITS) 50 MCG PO (10:43)
[2023-02-05] MEDS: Insulin Lispro 100 UNIT/ML INSULN.PEN SC (11:40)
[2023-02-05 12:22] LABS: Bedside Glucose 188 mg/dL (74-106)
--- NOTE | 2023-02-05 12:59 | PN_ITS ---
Subjective Subjective Patient seen and examined. He had no active complaints and had an uneventful night. Review of systems is otherwise negative. He is still awaiting transfer to [facility]. Objective Data Objective Data Vital Signs: Vital Signs Temp Pulse Resp BP Pulse Ox O2 Del Method O2 Flow Rate 98.3 F 92 16 126/59 H 97 Room Air 2 02/05/23 10:16 02/05/23 10:16 02/05/23 10:16 02/05/23 10:16 02/05/23 10:16 02/05/23 10:21 02/05/23 10:16 Oxygen Flow Rate (L/min) 2 Oxygen Delivery Method Room Air Weight: 323 lb 3.163 oz Body Mass Index (BMI) 43.8 Intake & Output: Intake and Output for Last 24 Hours 02/03/23 02/04/23 02/05/23 23:59 23:59 23:59 Intake Total 4420.00 / 4660.00 4762.80 / 5512.80 3364.42 / 3364.42 Output Total 1200 / 2600 2100 / 3000 4350 / 4350 Balance 3220.00 / 2060.00 2662.80 / 2512.80 -985.58 / -985.58 Medical Nutrition Assessment Dietitian: Malnutrition Criteria Met Start: 02/02/23 16:03 Freq: Status: Active Protocol: Document 02/05/23 11:35 RMA (Rec: 02/05/23 11:35 RMA [id number]) Nutrition Malnutrition Evidence of Malnutrition Exists Yes Malnutrition (severe): Chronic Evidenced By Suboptimal Energy Intake ( Severe),Weight Loss (Severe) Clinical Problem Chronic Disease or Condition Related Malnutrition Etiology severe malnutrition related to inadequate energy intake w/ recent spine injury Signs/Symptoms as evidenced by unintentional 14% wt loss x 2 months, estimated PO intake meeting < 75% of estimated energy needs x 2 months Status Active Problem Recommendation Dietitian Recommendations/Changes Will continue CHO controlled diet as ordered. Will change 120mL Glucerna shake TID from with medpass to with meals. Will add Wiliam BID to support wound healing with medpass. Lab / Micro Data 02/05/23 06:10 02/05/23 06:10 Labs: Laboratory Results - last 24 hr 02/04/23 11:59: POC Glucose 182 H 02/04/23 18:19: POC Glucose 139 H 02/04/23 20:11: Vancomycin Trough 20.6 H 02/04/23 22:06: POC Glucose 161 H 02/04/23 23:38: POC Glucose 163 H 02/05/23 01:47: Random Vancomycin 15.4 H 02/05/23 06:10: WBC 9.1, RBC 3.51 L, Hgb 7.9 L, Hct 27.4 L, MCV 78.1 L, MCH 22.5 L, MCHC 28.8 L, RDW Std Deviation 54.3 H, RDW Coeff of Mary 19.3 H, Plt Count 269, MPV 8.7, Immature Gran % (Auto) 1.100 H, Neut % (Auto) 59.0, Lymph % (Auto) 23.9, [place] % (Auto) 10.5 H, Eos % (Auto) 4.8, Baso % (Auto) 0.7, Absolute Neuts (auto) 5.4, Absolute Lymphs (auto) 2.16, Nucleated RBC % 0, APTT 91.4 H*, Sodium 136, Potassium 4.1, Chloride 104, Carbon Dioxide 27.0, Anion Gap 5, BUN 12, Creatinine 0.44 L, Estim Creat Clear Calc 208.21, Est GFR (MDRD) Af Amer 254, Est GFR (MDRD) Non-Af 210, BUN/Creatinine Ratio 27.0 H, Glucose 167 H, Calcium 8.3 L 02/05/23 06:26: POC Glucose 159 H 02/05/23 11:39: POC Glucose 188 H Micro: Microbiology 02/01/23 12:02 Urine Catheter - Bartlett Urine Culture - Final Pseudomonas aeruginosa 02/01/23 12:09 Blood Culture (Wb) - Right Wrist Blood Culture - Preliminary No growth in 48 hours. 02/01/23 11:45 Blood Culture (Wb) - Anticubital Left Blood Culture - Preli minary No growth in 48 hours. 02/02/23 17:13 Nasal Secretion SARS-CoV-2 Antigen (Rapid) - Final 02/01/23 12:16 Mucosa - Nasopharyngeal Respiratory Panel (PCR) - Final Physical Exam Const alert, oriented x3 and no apparent distress Constitutional Narrative: super morbid obesity General Appearance: cooperative HEENT normocephalic, head/scalp atraumatic, moist oral mucous membranes and oropharynx normal Eyes PERRL and EOMs intact bilaterally Neck no lymphadenopathy, supple and no JVD Lymph Lymphatic: no lymphadenopathy noted and no lymphedema noted Resp Resp Narrative: mildly diminished breath sounds bibasally, no wheezes or crackles. On room air. Cardio regular rate, regular rhythm, S1 normal heart sound, S2 normal heart sound and no murmurs GI normal to inspection, nondistended, normoactive bowel sounds, soft to palpation, non-tender and non-distended GI Narrative: obese abdomen Extremity normal capillary refill and no clubbing, cyanosis or edema Skin Skin Narrative: both lower extremities wrapped in bandage. Intact dressing over lower back at site of sacral decubitus ulcers Neuro CN's II-XII intact bilaterally Neuro Narrative: power in RUE and LUE is 5/5. Power in lower extremities is 0/5 Psych thought process normal, cooperative and affect normal Appearance: appropriate Assessment & Plan Assessment/Plan (1) Bilateral pulmonary embolism: (2) Rhabdomyolysis: (3) Community acquired pneumonia: (4) Acute osteomyelitis of spine: PLAN: Plan #Hypoxia due to right lower lobe pneumonia * complicated by BATOOL * on IV vancomycin and zosyn * COVID negative and respiratory panel negative * on room air. * #Bilateral PE * as seen on CTA. * on heparin drip * * #Probable acute osteomyelitis of T9 * came in with severe chronic back pain * had a recent fall with L1 injury and resultant paraplegia * he recently had surgery in [place]. He is unable to say exactly what he had the surgery for * CT of the thoracic and lumbar spine showed acute kyphotic deformity at T9-T10 with almost complete collapse and destruction of the T9 vertebrae * MRi of the lumbar spine was ordered but not done as MRI department felt that per the CT lumbar spine images, he had multilevel screws and sharif fixation in the spine, this would limit the efficacy of the the MRI. * Spine surgery consulted. Dr Curtis reviewed images and recommended urgent transfer to a tertiary facility for evaluation for surgery due to complete collapse of T9 * on IV vancomycin, cefepime and flagyl. * records requested from Hospital in [place] where he had the spine surgery- per records from [facility] in [place], [place], he had left T10/T11 exploration of spina fusion with re-exploration of laminectomy and partial facetectomy and foraminotomy. * awaiting transfer to [facility] where he has been accepted pending bed availability * blood cultures negative. * #Elevated troponins * troponins were 151 on admission, and trended down to 123. * 2D echo showed EF of 65%, unable to assess diastolic dysfunction. * on heparin drip. * this elevation in troponin can be explained by bilateral PE, and not really nonstemi. * #Unstageable sacral decubitus ulcer with eschar * present on admission. Wound care and plastic surgery on board * #UTI: * concern for colonization due to chronic indwelling bartlett catheter * currently on antibiotics as above * ID on board. * urine cultures growing Pseudomonas. Blood cultures negative after 48 hours * #Rhabdomyolysis: resolved with IVF hydration #Anemia: Hb is 7.9 today. baseline is ~ 10 from November 2022. Will monitor. #Type 2 diabetes mellitus * ISS. Acuchecks ACHS * * #Super morbid obesity. Complicates acute care, expected recovery and prognosis. #Paraplegia due to mechanical fall with resultant L1 injury * Recently had surgery in [place]. Records requested from [facility]. * DVT prophylaxis; on heparin drip due to bilateral PE Disposition: Awaiting transfer to tertiary center. Accepted at [facility], pending bed availability. Charges/Coding Visit Charges Inpatient E&M: 49897 Subs Hosp L2
[2023-02-05 13:52] LABS: Partial Thromboplast Time 58.1 Seconds (24.1-36.2)
[2023-02-05 15:40] VITALS: BP 142/73; PULSE 82; RESP 16; TEMP 36.9
[2023-02-05 17:19] LABS: Bedside Glucose 138 mg/dL (74-106)
[2023-02-05] MEDS: Juven (unflavored) Packet 1 PACKET PO (18:26)
[2023-02-05 19:57] LABS: Partial Thromboplast Time 62.2 Seconds (24.1-36.2)
[2023-02-05] MEDS: Polyethylene Glycol 3350 17 GM PACKET PO (20:53)
[2023-02-05 21:31] VITALS: BP 164/71; PULSE 99; RESP 18; TEMP 37.4; O2SAT 92
[2023-02-05 23:37] LABS: Bedside Glucose 117 mg/dL (74-106)
[2023-02-06] MEDS: HEPARIN/D5w 25,000 UNITS 25,000 UNITS/250 ML IV.SOLN. 16 UNITS CONT INF (00:59)
[2023-02-06] MEDS: oxyCODONE 5 MG Tablet 10 MG PO (01:00)
[2023-02-06] MEDS: tiZANidine HCl 2 MG Tablet 4 MG PO (01:03)
[2023-02-06] MEDS: Ondansetron 4 MG/2 ML Vial IV (01:03)
--- NOTE | 2023-02-06 01:46 | NURSING ---
This RN called report to [facility], spoke with KATHRYN Raza. Transport to be here approx @ 0200.
[2023-02-06] MEDS: HYDROmorphone 1 MG/ML Syringe IV (02:08)
[2023-02-06 02:10] VITALS: BP 144/69; PULSE 102; RESP 20; TEMP 37.3; O2SAT 92
--- NOTE | 2023-02-06 03:25 | NURSING ---
Heparin Gtt continued upon transport
== END 2023-02-06 03:05 | disposition short-term general hospital (02) | DRG 539 ==
LOC: ED 12:13 → PCU 02-02 03:01
PROVIDERS: Internal Medicine Infectious Disease; Nurse Practitioner; Admitting Provider Family Medicine; Emergency Provider Emergency Medicine; PCP Family Medicine; Visit Provider Student in an Organized Health Care Education/Training Program
DX: M46.24 Osteomyelitis of vertebra, thoracic region (principal); I26.99 Other pulmonary embolism without acute cor pulmonale; I21.4 Non-ST elevation (NSTEMI) myocardial infarction; E43 Unspecified severe protein-calorie malnutrition; J18.9 Pneumonia, unspecified organism; G82.20 Paraplegia, unspecified; E87.1 Hypo-osmolality and hyponatremia; Z68.41 Body mass index [BMI] 40.0-44.9, adult; T83.511A Infection and inflammatory reaction due to indwelling urethral catheter, initial encounter; M62.82 Rhabdomyolysis; L03.115 Cellulitis of right lower limb; L03.116 Cellulitis of left lower limb; N39.0 Urinary tract infection, site not specified; L89.150 Pressure ulcer of sacral region, unstageable; E11.649 Type 2 diabetes mellitus with hypoglycemia without coma; E66.01 Morbid (severe) obesity due to excess calories; E11.51 Type 2 diabetes mellitus with diabetic peripheral angiopathy without gangrene; I10 Essential (primary) hypertension; D50.9 Iron deficiency anemia, unspecified; L89.319 Pressure ulcer of right buttock, unspecified stage; G47.33 Obstructive sleep apnea (adult) (pediatric); J30.9 Allergic rhinitis, unspecified; M48.061 Spinal stenosis, lumbar region without neurogenic claudication; M40.204 Unspecified kyphosis, thoracic region; M43.14 Spondylolisthesis, thoracic region; L89.519 Pressure ulcer of right ankle, unspecified stage; L89.529 Pressure ulcer of left ankle, unspecified stage; E78.5 Hyperlipidemia, unspecified; Z87.891 Personal history of nicotine dependence; Z74.09 Other reduced mobility; Z79.1 Long term (current) use of non-steroidal anti-inflammatories (NSAID); Z79.899 Other long term (current) drug therapy; B96.5 Pseudomonas (aeruginosa) (mallei) (pseudomallei) as the cause of diseases classified elsewhere; G89.29 Other chronic pain
CPT/HCPCS: 36415; 36569; 36600; 71045; 71275; 72131; 80048; 80053; 80061; 80202; 81001; 82274; 82550; 82728; 82803; 82962; 83036; 83540; 83550; 83605; 83735; 84100; 84484; 85025; 85610; 85730; 87040; 87077; 87086; 87088; 87184; 87186; 87633; 87641; 87811; 92610; 93005; 93306; 94668; 94762; 97110; 97162; 97166; 97802; 97803; 99252; 99285; J7030; J7040; J7050; Q9957; Q9967; A4216; C8929; G0463; J2405

== ENCOUNTER → 2023-06-24 | Outpatient (CLI) | payer OTHER, SELFPAY | END | disposition home or self-care (01) | PROVIDERS: PCP Family Medicine; Referring Provider Family Medicine; Visit Provider Family Medicine | DX: L89.153 Pressure ulcer of sacral region, stage 3 (principal); L03.90 Cellulitis, unspecified | CPT/HCPCS: 87070; 87075; 87077; 87186; 87205 ==

== ENCOUNTER 2023-07-29 17:19 | Emergency (ER) | payer OTHER, SELFPAY ==
[2023-07-29] VITALS (9 sets, daily range): BP systolic 109–147; BP diastolic 58–88; PULSE 115–132; RESP 13–24; TEMP 37.1–38.2; O2SAT 91–100; BMI 39.4
--- NOTE | 2023-07-29 17:55 | RAD_ITS ---
EXAM: XR CHEST, 1 VIEW CLINICAL INDICATION: tachypnea TECHNIQUE: Frontal view of the chest. COMPARISON: 02/01/2023 FINDINGS: LUNGS AND PLEURAL SPACES: There is scarring in both lung bases. No pneumothorax. No effusion. HEART: Unremarkable. Cardiac silhouette not enlarged. MEDIASTINUM: Central airways and mediastinal contour are unremarkable. BONES/JOINTS: There is hardware from posterior fusion in the lower thoracic and lumbar spine. No acute fracture. SOFT TISSUES: Unremarkable. RAD/Chest 1 View (Portable) IMPRESSION: Bibasilar scarring. There is no focal consolidation. Electronically Signed: Raphael Winslow MD at 18:28 EDT ,
[2023-07-29 18:12] LABS: Hematocrit 21.8 % (40-54); Mean Corp Hgb Conc 27.1 g/dL (32-36); Mean Corpuscular Hgb 19.2 pg (27.0-32.0); Mean Corpuscular Volume 70.8 fL (80-94); Mean Platelet Vol. 8.8 fl (6.2-12.0); POSITIVE COUNT YES; POSITIVE MORPHOLOGY YES; RBC Distribution Width CV 21.8 % (11.6-14.6); RBC Distribution Width SD 54.1 fl (35.1-43.9); Red Blood Count 3.08 M/mm3 (4.6-6.2); White Blood Count 18.4 K/mm3 (4.4-11.0)
[2023-07-29 18:18] LABS: Mucous, Urine 0 SEEN /hpf (<or=2+); Squamous Epithelial Cells - UA 0 SEEN /hpf (0-5)
[2023-07-29 18:19] LABS: International Normalized Ratio 1.4; Partial Thromboplast Time 51.5 Seconds (24.1-36.2); Prothrombin Time (Protime)PT. 16.7 SECONDS (11.7-14.9)
[2023-07-29] MEDS: 0.9% Normal Saline (1000mL) 1,000 ML 999 ML IV (18:19)
[2023-07-29 18:25] LABS: Color, Urine Yellow (Yellow); Glucose, Dipstick Normal (Normal); Ketone-Dipstick Negative (Negative); Leukocyte Esterase-Dipstick 500 /ul (Negative); Nitrite-Dipstick Positive (Negative); Occult Blood-Urine 150 /ul (Negative); Protein-Dipstick 100 mg/dl (Negative); Urine Bilirubin Dipstick Negative (Negative); Urine Clarity Sl. Cloudy (Clear); Urine Urobilinogen Normal (Normal); Urine pH 6.5 (5.0 - 8.0)
--- NOTE | 2023-07-29 18:32 | CT_ITS ---
We are attempting to reach an attending provider to discuss findings. An addendum with communication details will be sent when the communication is complete. EXAM: CT PELVIS WITH INTRAVENOUS CONTRAST CLINICAL INDICATION: infected sacral wound TECHNIQUE: Helically acquired images were obtained of the pelvis with intravenous contrast. This CT exam was performed using one or more of the following dose reduction techniques: automated exposure control, adjustment of the mA and/or kV according to patient size, and/or use of iterative reconstruction technique. CONTRAST: 100 CC ISOVUE 370 COMPARISON: No relevant prior studies available. FINDINGS: BOWEL: Unremarkable as visualized. No bowel distention. No focal inflammatory change. APPENDIX: No evidence of acute appendicitis. INTRAPERITONEAL SPACE: Unremarkable. No ascites or other fluid collection. No free air. BLADDER: There is a Campbell catheter present with the balloon inflated within the prostatic urethra. This should be deflated and advanced into the bladder. REPRODUCTIVE: Unremarkable as visualized. No mass. BONES/JOINTS: There is a soft tissue defect overlying the right ischial tuberosity which extends down to the bone surface. There is also a soft tissue defect posterior to the coccyx which nearly extends to the bone. There is no fluid identified but there is soft tissue density which may represent a phlegmon. There is beam hardening artifact due to a right hip prothesis as well as extensive hardware in the sacrum and lower lumbar spine. No suspicious lytic or blastic abnormality. SOFT TISSUES: Unremarkable. No pelvic wall hernia. LYMPH NODES: Unremarkable. No enlarged lymph nodes. CT/Pelvis WITH IV Contrast IMPRESSION: 1. Decubitus ulcers over the inferior sacrum and right ischial tuberosity. Fascial defect extends to the bone surface. There is no obvious abscess identified in the subcutaneous tissues. 2. Campbell catheter with the balloon inflated in the prostatic urethra. This should be deflated and advanced into the bladder. Electronically Signed: Raphael Winslow MD at 20:05 EDT ,
[2023-07-29 18:36] LABS: ALB/GLOB Ratio 0.4 RATIO (0.9-2.4); AST(SGOT) 13 U/L (15-37); Alanine Aminotransfer ALT/SGPT 16 U/L (16-61); Albumin, Serum 1.9 g/dL (3.2-5.0); Alkaline Phosphatase 202 U/L (45-117); Anion Gap 8 (5-15); BUN 13 mg/dL (7-18); BUN/Creat Ratio 21.8 RATIO (10-20); Calcium,Total 8.2 mg/dL (8.5-10.1); Chloride 99 mmol/L (98-107); EST Glomerular Filtration Rate 149 mL/min (>60); Est Glom Filt Rate - Afr Amer 180 mL/min (>60); Globulin 5.2 g/dL (2.2-4.2); Glucose 143 mg/dL (74-106); Protein, Total 7.1 g/dL (6.4-8.2); Sodium Level 130 mmol/L (136-145)
[2023-07-29 18:37] LABS: Bacteria 4+ /hpf (None Seen); Red Blood Cells-Urine 5-10 SEEN /hpf (0-5); White Blood Cells 0-5 SEEN /hpf (0-5)
[2023-07-29 18:41] LABS: Lactic Acid 2.3 mmol/L (0.4-1.9)
[2023-07-29 18:52] LABS: Hemoglobin 5.9 g/dL (13.0-16.5)
[2023-07-29 18:53] LABS: Platelet Count 915 K/mm3 (150-450)
[2023-07-29 19:01] LABS: Differential Indicated MANUAL DIFF
[2023-07-29 19:25] LABS: Basophil 2 % (0-1); Eosinophil 1 % (0-5); Lymphocyte 6 % (19-41); Metamyelocyte 1 % (0-1); Monocyte 6 % (0-10); Myelocyte 3 % (0-0); Neutrophil-Band 22 % (0-5); Neutrophil-Segmented 59 % (47-70)
[2023-07-29 19:27] LABS: Absolute Lymphocyte Count 1.11 X10^3/uL (0.83-4.51); Absolute Neutrophil Count 14.9 X10^3/uL (2.0-7.7)
[2023-07-29 19:28] LABS: Anisocytosis 1+; Hypochromasia 1+; Microcytosis 1+; Platelet Estimate MKD INC (ADEQ); Red Cell Morphology N CHROM NORMAL (NORM C&C)
[2023-07-29] MEDS: Ampicillin/Sulbactam 3 GM in 0.9% Normal Saline (100mL MB+) 100 ML IV (20:08)
--- NOTE | 2023-07-29 20:12 | EX.ED.DYSGE1 ---
HPI History of Present Illness Chief Complaint: Wound Detail of Chief Complaint: Infected sacral decubitus Informant: patient, family and PCP Onset/Context/Timing Onset: Days Context: Sudden Onset Timing: Continuous Quality: Infected sacral decubitus. Location: Sacral decubitus Current Severity: Moderate Maximum Severity: Moderate Worsened by: Patient is paraplegic Relieved by: Nothing Associated Symptoms Associated Symptoms: Fever, objective 100.0 ?F) chills drainage from wound and odor Narrative Narrative: Patient is a 58-year-old male. He had a sacral decubitus several months ago. He required transfer to outside facility because plastics was not available. Patient had a wound VAC. The wound VAC was removed because of bleeding. He is on apixaban. Family member took a picture of decubitus July 25. This was compared to picture obtained June. There was significant change. There is been progression over the last 3 days based on my viewing of the wound today. Patient states he does not feel well. He feels weak. He was seen by visiting nurse was concerned that the wound has gotten worse. He is presently on no antibiotic. Prior similar symptoms: Yes Recent Illness/Hospitalization: Yes [facility] Medical History Acute osteomyelitis of spine Anemia Bilateral pulmonary embolism BMI greater than 40 Cellulitis of leg without foot, right Community acquired pneumonia Former tobacco use H/o back surgery HTN (hypertension) Hypoglycemia Lymphedema BATOOL treated with BiPAP Paraplegia Pressure injury, unstageable, with eschar Rhabdomyolysis Type 2 diabetes mellitus Home Medications diclofenac sodium 50 mg tablet,delayed release 50 mg PO DAILY 03/03/20 [History Last Taken 07/29/23] fluticasone propionate 50 mcg/actuation nasal spray,suspension (Flonase Allergy Relief) 1 spray intranasal DAILY shortness of breath 03/03/20 [History Last Taken Unknown] apixaban 5 mg tablet (Eliquis) 5 mg PO BID 07/29/23 [History Last Taken 07/29/23] docusate sodium 100 mg capsule (Colace) 100 mg PO DAILY 07/29/23 [History Last Taken Unknown] fluconazole 200 mg tablet 200 mg PO DAILY 07/29/23 [History Last Taken 07/29/23] gabapentin 100 mg capsule 100 mg PO TID 07/29/23 [History Last Taken 07/29/23] guaifenesin 200 mg tablet 200 mg PO Q4H PRN congestion 07/29/23 [History Last Taken 07/29/23] insulin glargine 100 unit/mL subcutaneous solution (Lantus U-100 Insulin) 20 unit subcut DAILY diabetes mellitus type 2 07/29/23 [History Last Taken 07/29/23] insulin lispro 100 unit/mL subcutaneous solution 8 unit subcut TID 07/29/23 [History Last Taken 07/29/23] linezolid 600 mg tablet 600 mg PO BID 07/29/23 [History Last Taken 07/29/23] methocarbamol 500 mg tablet 1,000 mg PO TID PRN cramps 07/29/23 [History Last Taken 07/29/23] morphine 30 mg tablet,extended release 30 mg PO Q12H 07/29/23 [History Last Taken 07/29/23] oxycodone 10 mg tablet 10 mg PO 4X/DAY PRN pain 07/29/23 [History Last Taken 07/29/23] polyethylene glycol 3350 17 gram/dose oral powder (ClearLax) 17 g PO DAILY 07/29/23 [History Last Taken 07/29/23] semaglutide 1 mg/dose (4 mg/3 mL) subcutaneous pen injector (Ozempic) 1 mg subcut MO 07/29/23 [History Last Taken 07/18/23] Allergy/AdvReac Type Severity Reaction Status Date / Time No Known Allergies Allergy Verified 11/15/22 18:01 Family History Mother Hypertension Hypotension Diabetes Arthritis Father Hypertension Hypotension Heart disease Status post double vessel coronary artery bypass angina Arthritis Grandfather Prostate cancer Grandmother Uterine cancer Surgical History H/O sinus surgery Hx of spinal surgery Social History household members: other details: parents current occupational status: employed and retired Smoking Status: Former smoker alcohol intake: never substance use type: does not use do you feel safe at home: Yes ROS ROS ED Constitutional Constitutional ED: Reports chills, fever(s) and sweats; Denies weight loss Eyes Eyes: Denies blurry vision, change in vision or diplopia ENT ENT ED: Denies ear pain, rhinorrhea or sore throat Cardiovascular Cardiovascular: Reports palpitations and racing heartbeat; Denies chest pain or paroxysmal nocturnal dyspnea Respiratory/Chest Respiratory/Chest: Reports dyspnea; Denies cough, paroxysmal nocturnal dyspnea or sputum Gastrointestinal Gastrointestinal: Denies abdominal pain, nausea or vomiting Genitourinary Genitourinary ED: Reports other Details: Patient has an indwelling Campbell. Musculoskeletal Musculoskeletal: Denies arthralgias, back pain or myalgias Integumentary Reports other Details: Sacral decubitus Neurologic Neurologic: Reports weakness; Denies headache(s) or paresthesias Hematologic/Lymphatic Hematologic/Lymphatic: Reports anemia, easy bleeding and easy bruising EXAM Physical Exam Const Vital Signs: 07/29/23 17:26 07/29/23 17:28 07/29/23 18:01 Temperature 98.8 F 98.8 F Temperature Source Temporal Temporal Pulse Rate 121 H 132 H Respiratory Rate 22 H 21 H Blood Pressure 142/80 H 147/76 H Blood Pressure Mean 100 99 Pulse Ox 97 94 Oxygen Delivery Method Room Air Room Air Room Air 07/29/23 18:28 07/29/23 20:13 07/29/23 20:13 Temperature 98.8 F 100.5 F H 100.5 F H Temperature Source Temporal Oral Oral Pulse Rate 115 H 121 H 123 H Respiratory Rate 18 13 13 Blood Pressure 145/67 H 125/59 H 124/59 H Blood Pressure Mean 93 81 80 Pulse Ox 100 95 95 Oxygen Delivery Method Room Air Room Air Room Air 07/29/23 21:00 07/29/23 21:30 Temperature 100.8 F H 100.5 F H Temperature Source Oral Pulse Rate 128 H 120 H Respiratory Rate 24 H 23 H Blood Pressure 125/88 H 125/80 H Blood Pressure Mean 100 95 Pulse Ox 92 94 Oxygen Delivery Method Room Air Positive well nourished, well developed and obese Constitutional Narrative: Patient appears tachypneic. He is tachycardic. Is not presently febrile or hypoxic. He is blood pressure is higher than what is considered normal. General Appearance ED: well developed and NAD; Negative for cyanotic or diaphoretic Nutritional Appearance: obese HEENT Reports dry mucous membranes HEENT Narrative: Ears normal. Nares patent. Posterior pharynx out erythema or exudate. Mouth ED: Yes dry mucous membranes Mouth: dry mucous membranes Eyes PERRL and EOMs intact bilaterally General Eye ED: Yes pale conjunctiva; Negative for scleral icterus Neck no lymphadenopathy, supple and no JVD Chest Wall inspection of chest normal and palpation of chest normal Resp normal respiratory effort and clear to auscultation bilaterally Cardio regular rhythm, S1 normal heart sound, S2 normal heart sound and no murmurs Rate: tachycardic GI normal to inspection, nondistended, normoactive bowel sounds, non-tender, non-distended and no masses; Negative for hepatosplenomegaly Narrative: Indwelling Campbell. Back/Spine no CVA tenderness Extremity Negative for normal to inspection Extremity Narrative: Atrophy of his legs due to paraplegia. Neuro oriented x3, CN's II-XII intact bilaterally and No no sensory deficits noted Sensorium / Orientation: alert Motor Exam: Negative for strength 5/5 throughout Psych Mood & Affect: depressed Skin Skin Narrative: Large decubitus. Wounds: wounds noted Sepsis Attestation Sepsis Alert: Yes Sepsis Attestation: Agree w/Sepsis Date exam was performed: 07/29/23 Time exam was performed: 20:31 Possible Source of Sepsis: Skin/soft tissue Sepsis Organ Dysfunction Criteria Present: Lactic Acid > 2 mmol/L Supportive Findings: Since patient is not hypotensive and lactate is not greater than 4 he did not receive a 30 cc/kg bolus. MDM MDM MDM Narrative Medical decision making narrative: CT of the pelvis was obtained to assess for osteomyelitis which patient had in the past also to make sure there is no abscess near the bottom portion of the his buttocks near the gluteal crease. The radiologist did contact me at 2018. There is phlegmon there but no definitive abscess. This is consistent with an infection. Sepsis order set was initiated. History & Record Review Discussion w/independent historian: Patient and Family Lab Data Attestation: I reviewed the patient's lab results. Lab results narrative: White count is elevated 18.4. Patient's hemoglobin is 5.9 with a hematocrit of 21.8. MCV is low. He has approximate 2 g drop from prior. Differential reveals 59% segs 22% bands. There is also metamyelocytes and myelocytes. Lactate elevated 2.3. Urine reveals 4+ bacteria with no pyuria. This is probably colonization due to his indwelling Campbell. Of note Campbell needs to be reinserted because the balloon is inflated in his prostate. Labs: Laboratory Results - last 24 hr 07/29/23 07/29/23 07/29/23 17:45 18:15 20:35 WBC 18.4 H RBC 3.08 L Hgb 5.9 L* Hct 21.8 L MCV 70.8 L MCH 19.2 L MCHC 27.1 L RDW Std Deviation 54.1 H RDW Coeff of Mary 21.8 H Plt Count 915 H* MPV 8.8 Immature Gran % (Auto) MANAGER BRANCH Neut % (Auto) MANAGER BRANCH Lymph % (Auto) MANAGER BRANCH [place] % (Auto) MANAGER BRANCH Eos % (Auto) MANAGER BRANCH Baso % (Auto) MANAGER BRANCH Absolute Neuts (auto) 14.9 H Absolute Lymphs (auto) 1.11 Total Counted MANAGER BRANCH Neutrophils % (Manual) 59 Band Neutrophils % 22 H Lymphocytes % (Manual) 6 L Monocytes % (Manual) 6 Eosinophils % (Manual) 1 Basophils % (Manual) 2 H Metamyelocytes % 1 Myelocytes % 3 H Nucleated RBC % MANAGER BRANCH Diff Path Review May foll Platelet Estimate MKD INC RBC Morphology N CHROM Hypochromasia 1+ Anisocytosis 1+ Microcytosis 1+ PT 16.7 H INR 1.4 APTT 51.5 H Sodium 130 L Potassium 4.0 Chloride 99 Carbon Dioxide 23.0 Anion Gap 8 BUN 13 Creatinine 0.60 L Est GFR (MDRD) Af Amer 180 Est GFR (MDRD) Non-Af 149 BUN/Creatinine Ratio 21.8 H Glucose 143 H Lactic Acid 2.3 H* Calcium 8.2 L Total Bilirubin 0.30 AST 13 L ALT 16 Alkaline Phosphatase 202 H Total Protein 7.1 Albumin 1.9 L Globulin 5.2 H Albumin/Globulin Ratio 0.4 L Urine Color Yellow Urine Clarity Sl. Cloudy Urine pH 6.5 Ur Specific [place] 1.010 Urine Protein 100 H Urine Glucose (UA) Normal Urine Ketones Negative Urine Occult Blood 150 H Urine Nitrite Positive H Urine Bilirubin Negative Urine Urobilinogen Normal Ur Leukocyte Esterase 500 H Urine RBC 5-10 SEEN Urine WBC 0-5 SEEN Ur Squamous Epith Cells 0 SEEN Urine Bacteria 4+ Urine Mucus 0 SEEN Crossmatch See Detail Radiography Diagnostic Testing: Clinical Impression(s) from Imaging Studies Chest X-Ray 07/29/23 17:55 IMPRESSION: Bibasilar scarring. There is no focal consolidation. Electronically Signed: Raphael D. Breckwoldt, MD at 18:28 EDT , Pelvis CT 07/29/23 18:32 IMPRESSION: 1. Decubitus ulcers over the inferior sacrum and right ischial tuberosity. Fascial defect extends to the bone surface. There is no obvious abscess identified in the subcutaneous tissues. 2. Campbell catheter with the balloon inflated in the prostatic urethra. This should be deflated and advanced into the bladder. Electronically Signed: Raphael Winslow MD at 20:05 EDT , ADDENDUM: 07/29/232024 IMPRESSION: 1. Decubitus ulcers over the inferior sacrum and right ischial tuberosity. Fascial defect extends to the bone surface. There is no obvious abscess identified in the subcutaneous tissues. 2. Campbell catheter with the balloon inflated in the prostatic urethra. This should be deflated and advanced into the bladder. N.B. : The above Results were Read Back by Raphael Winslow MD to Tolu Sharma MD, and understanding confirmed on 07/29/2023 20:18:19 (ET). Electronically Signed: Raphael Winslow MD at 20:05 EDT , EKG Initial EKG: Attestation: I personally reviewed and interpreted this EKG as follows: Interpretation: Sinus Tachycardia (Rate is 119. [place] to left. There is evidence of right bundle branch block. UT interval is 176 ms. Cures duration 148 ms. QT duration 352 ms. The right bundle branch block is not new.) Management Discussion w/another healthcare provider: Hospitalist (Spoke with Dr. Bentley the hospitalist. I was informed there is no plastic coverage this coming week. Recommended transfer. Patient was [facility] transferred to [facility]), [employer] Consultant and Radiologist (Discussed in the MDM portion of the chart) Critical Care Time Critical Care Time: Yes Critical care time (excluding procedures): 30-74 minutes (57), Discussing w/Patient &/or Family/Numerical Control Machine Tool Operator, Discussing w/Consultants (Hospitalist), Arranging Admission or Transfer (dr. Esposito hosp. F MICU attending ICU and critical carev transport. Spoke with the manager skilled at [facility]. He will call back looking for bed availability other than [facility]) and Performing Direct Patient Care at Bedside Discharge Plan Triage Chief Complaint: Wound ED Provider: Tolu Sharma Dx/Rx/DC Orders Clinical Impression: Severe sepsis with acute organ dysfunction, Type 2 diabetes mellitus, Cellulitis of buttock, left, Cellulitis of buttock, right, Decubitus ulcer of sacral region, stage 4, Complete paraplegia, Sinus tachycardia, Acute blood loss anemia (ABLA) Prescriptions: No Action diclofenac sodium 50 mg tablet,delayed release (DR/EC) 50 mg PO DAILY fluticasone propionate [Flonase Allergy Relief] 50 mcg/actuation spray,suspension 1 spray INTRANASAL DAILY Patient Comments: takes in once in awhile Rx Instructions: administer into each nostril methocarbamol 500 mg tablet 1,000 mg PO TID PRN (Reason: cramps) morphine 30 mg tablet extended release 30 mg PO Q12H gabapentin 100 mg capsule 100 mg PO TID Eliquis 5 mg tablet 5 mg PO BID insulin glargine [Lantus U-100 Insulin] 100 unit/mL solution 20 unit subcut DAILY fluconazole 200 mg tablet 200 mg PO DAILY insulin lispro 100 unit/mL solution 8 unit subcut TID Patient Comments: 8 units in the morning, 8 at noon and 8 units in the evening Ozempic 1 mg/dose (4 mg/3 mL) pen injector 1 mg subcut MO guaifenesin 200 mg tablet 200 mg PO Q4H PRN (Reason: congestion) oxycodone 10 mg tablet 10 mg PO 4X/DAY PRN (Reason: pain) linezolid 600 mg tablet 600 mg PO BID docusate sodium [Colace] 100 mg capsule 100 mg PO DAILY polyethylene glycol 3350 [ClearLax] 17 gram/dose powder 17 g PO DAILY Primary Care Provider: Wilma Thayer Referrals: Wilma Thayer DO [Primary Care Provider] - Disposition Disposition: Acute Care Hospital Discharge Location: [facility]
[2023-07-29] MEDS: Vancomycin HCl 2,000 MG in 0.9% Normal Saline (500mL Bag) 500 ML 250 MG IV (21:25)
[2023-07-29 22:05] LABS: Reflex Lactate? Y
[2023-07-29 22:55] LABS: Lactic Acid 2.3 mmol/L (0.4-1.9)
[2023-07-29] MEDS: Ondansetron 4 MG/2 ML Vial IV (23:25)
[2023-07-29] MEDS: HYDROmorphone 0.5 MG/0.5 ML SYRINGE IV (23:25)
[2023-07-30] VITALS (9 sets, daily range): BP systolic 99–144; BP diastolic 49–89; PULSE 120–125; RESP 18–21; TEMP 38.2–38.8; O2SAT 90–94
--- NOTE | 2023-07-30 00:54 | ED.RN ---
This RN had a verbal order from Dr Sharma to give the blood quickly in order to start the 2nd bag by the time the squad will arrive to pick the pt up. This RN is now running it at 350ml/hr in order to accommodate his request
[2023-07-30] MEDS: HYDROmorphone 0.5 MG/0.5 ML SYRINGE IV (01:48)
[2023-07-30] MEDS: Acetaminophen 325 MG Tablet 650 MG PO (01:48)
--- NOTE | 2023-07-30 02:09 | ED.RN ---
Blood is being continued upon transfer
[2023-08-02 10:23] LABS: Pathologist Review Reviewed
== END 2023-07-30 02:19 | disposition short-term general hospital (02) ==
PROVIDERS: Emergency Provider Emergency Medicine; PCP Family Medicine; Visit Provider Emergency Medicine
DX: A41.9 Sepsis, unspecified organism (principal); L89.154 Pressure ulcer of sacral region, stage 4; G82.21 Paraplegia, complete; R65.20 Severe sepsis without septic shock; E11.9 Type 2 diabetes mellitus without complications; Z79.4 Long term (current) use of insulin; Z87.891 Personal history of nicotine dependence; D62 Acute posthemorrhagic anemia; L03.317 Cellulitis of buttock; R00.0 Tachycardia, unspecified; I10 Essential (primary) hypertension; G47.33 Obstructive sleep apnea (adult) (pediatric); Z99.81 Dependence on supplemental oxygen
CPT/HCPCS: 51702; 71045; 72193; 80053; 81001; 83605; 85025; 85610; 85730; 86850; 86870; 86900; 86901; 86902; 86905; 86920; 86922; 87040; 87077; 87086; 87088; 87186; 93005; 96361; 96365; 96366; 96368; 96375; 96376; 99285; J7030; J7040; J7050; P9016; Q9967; A4216; J0295; J2405

== ENCOUNTER 2023-08-31 08:54 | Inpatient (IN) | payer OTHER, SELFPAY ==
[2023-08-31] VITALS (11 sets, daily range): BP systolic 93–146; BP diastolic 58–87; PULSE 113–130; RESP 16–24; TEMP 36–37.3; O2SAT 83–99; BMI 39.9; BMI 44.6
--- NOTE | 2023-08-31 09:14 | EDS_ITS ---
HPI History of Present Illness Chief Complaint: Complaint Informant: patient Pain Onset: Today and Hours Context: Gradual Onset Timing: Continuous Maximum Severity: Moderate Narrative Narrative: 58-year-old male history of hypertension, diabetes and paraplegia. 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 He has a chronic indwelling Campbell catheter. Patient is from [facility]. States he has had blood in his urine and today does not feel like the bladder is draining and the catheter may be obstructed. Prior history of the same. He denies any nausea, vomiting or diarrhea. Prior similar symptoms: Yes Recent Illness/Hospitalization: Yes [facility] Medical History Acute osteomyelitis of spine Anemia Bilateral pulmonary embolism BMI greater than 40 Cellulitis of leg without foot, right Community acquired pneumonia Former tobacco use H/o back surgery HTN (hypertension) Hypoglycemia Lymphedema BATOOL treated with BiPAP Paraplegia Pressure injury, unstageable, with eschar Rhabdomyolysis Type 2 diabetes mellitus Home Medications fluticasone propionate 50 mcg/actuation nasal spray,suspension (Flonase Allergy Relief) 1 spray intranasal DAILY shortness of breath 03/03/20 [History Last Taken Unknown] apixaban 5 mg tablet (Eliquis) 5 mg PO DAILY 07/29/23 [History Last Taken 08/31/23] docusate sodium 100 mg capsule (Colace) 100 mg PO DAILY 07/29/23 [History Last Taken 08/31/23] gabapentin 100 mg capsule 100 mg PO TID 07/29/23 [History Last Taken 08/31/23] insulin glargine 100 unit/mL subcutaneous solution (Lantus U-100 Insulin) 20 unit subcut DAILY diabetes mellitus type 2 07/29/23 [History Last Taken 08/31/23] insulin lispro 100 unit/mL subcutaneous solution 8 unit subcut TID 07/29/23 [History Last Taken 08/31/23] methocarbamol 500 mg tablet 1,000 mg PO TID PRN cramps 07/29/23 [History Last Taken 08/31/23] morphine 30 mg tablet,extended release 30 mg PO Q12H 07/29/23 [History Last Taken 08/31/23] oxycodone 10 mg tablet 10 mg PO 4X/DAY PRN pain 07/29/23 [History Last Taken 08/31/23] polyethylene glycol 3350 17 gram/dose oral powder (ClearLax) 17 g PO DAILY 07/29/23 [History Last Taken 07/29/23] pantoprazole 40 mg tablet,delayed release 40 mg PO DAILY 08/31/23 [History Last Taken 08/31/23] Allergy/AdvReac Type Severity Reaction Status Date / Time No Known Allergies Allergy Verified 08/31/23 11:11 Family History Mother Hypertension Hypotension Diabetes Arthritis Father Hypertension Hypotension Heart disease Status post double vessel coronary artery bypass angina Arthritis Grandfather Prostate cancer Grandmother Uterine cancer Surgical History H/O sinus surgery Hx of spinal surgery Social History household members: other details: parents current occupational status: employed and retired Smoking Status: Former smoker alcohol intake: never substance use type: does not use do you feel safe at home: Yes ROS ROS ED ROS Narrative Gross hematuria. Review of Systems ROS Unobtainable: Denies due to encephalopathy Constitutional Constitutional ED: Denies chills or fever(s) Eyes Eyes: Denies blurry vision Cardiovascular Cardiovascular: Denies chest pain Respiratory/Chest Respiratory/Chest: Denies cough Gastrointestinal Gastrointestinal: Reports abdominal pain; Denies constipation, nausea or vomiting Genitourinary Genitourinary ED: Reports hematuria Musculoskeletal Musculoskeletal: Denies arthralgias Integumentary Denies abscess or rash Neurologic Neurologic: Denies headache(s) Psychiatric Psychiatric: Denies anxiety or depression Endocrine Endocrinology: Denies polydipsia or polyphagia Hematologic/Lymphatic Hematologic/Lymphatic: Denies lymphadenopathy Allergic/Immunologic Allergic/Immunologic ED: Denies mouth swelling, tongue swelling or urticaria EXAM Physical Exam Narrative Exam Narrative: 58-year-old male brought in by squad lying flat on his back in the bed. Vital signs are stable his pulse is elevated at 119. H EENT exam Opticrom react light. No facial droop. Mild dry mucous membranes. Neck nontender. Lungs clear to auscultation bilaterally. Heart tachycardic no appreciable murmur. Chest wall nontender. Abdomen soft. Suprapubic tenderness. Colostomy bag with gas in it. No peritoneal signs. Moving both upper extremities. Flaccid paralysis of the lower extremities. Neurologically is awake and alert. Answering questions and following commands. Paralysis of both lower extremities but that is chronic. Const Vital Signs: 08/31/23 08:58 08/31/23 08:54 08/31/23 13:00 Temperature 96.8 F L Temperature Source Temporal Pulse Rate 119 H 113 H 120 H Respiratory Rate 18 20 H 16 Blood Pressure 120/79 145/77 H 114/72 Blood Pressure Mean 92 99 86 Pulse Ox 97 96 97 Oxygen Delivery Method Room Air Room Air Room Air Oxygen Flow Rate (L/min) 08/31/23 13:54 08/31/23 15:43 08/31/23 15:43 Temperature Temperature Source Pulse Rate 119 H 127 H Respiratory Rate 18 16 Blood Pressure 106/60 93/71 Blood Pressure Mean 75 78 Pulse Ox 93 83 99 Oxygen Delivery Method Room Air Room Air Nasal Cannula Oxygen Flow Rate (L/min) 3 08/31/23 16:10 Temperature 98.4 F Temperature Source Oral Pulse Rate 128 H Respiratory Rate 20 H Blood Pressure 103/69 Blood Pressure Mean 80 Pulse Ox 95 Oxygen Delivery Method Nasal Cannula Oxygen Flow Rate (L/min) 2 Positive well nourished, well developed and obese; Negative for cachectic, contractures or unkempt General Appearance ED: well developed; Negative for unkempt, cachectic, contractures, NAD or pallor Nutritional Appearance: obese; Negative for cachectic HEENT Reports dry mucous membranes; Denies moist mucous membranes normocephalic and atraumatic; Negative for trauma or tenderness Mouth ED: Yes dry mucous membranes Mouth: dry mucous membranes Eyes EOMs intact bilaterally General Eye ED: Negative for pale conjunctiva or scleral icterus Neck no lymphadenopathy, supple and no JVD General: Negative for tenderness Resp normal respiratory effort and clear to auscultation bilaterally Effort and Inspection: Negative for retractions Auscultation: Negative for rales, rhonchi or wheezes Cardio regular rhythm, S1 normal heart sound, S2 normal heart sound and no murmurs; Negative for regular rate Rate: tachycardic GI non-distended and no masses; Negative for non-tender Inspection: Negative for abdominal distention Auscultation: normoactive bowel sounds Palpation: soft and tender Extremity Negative for normal to inspection Extremity Narrative: Bilateral lower extremity paralysis. General Extremety ED: Negative for edema or pulses abnormal General Extremity: Negative for edema or pulses abnormal Neuro oriented x3, CN's II-XII intact bilaterally, No moves all extremities, No no focal motor deficits and No no sensory deficits noted Neuro Narrative: Bilateral lower extremity paralysis. Numbness. Sensorium / Orientation: alert, oriented to person and oriented to place; Negative for confused, lethargic or stuporous Motor Exam: strength abnormal; Negative for strength 5/5 throughout Psych Negative for mental status grossly normal Appearance: Negative for unkempt Mood & Affect: tearful Thought Process: normal thought process Skin General Skin Exam: Negative for jaundice or pallor Lesions: no lesions Rashes: no rashes MDM MDM MDM Narrative Medical decision making narrative: 58-year-old female from [facility] with gross hematuria and what sounds like urinary retention. Campbell catheter be changed to a 22 [place] Campbell. UA, urine culture and screening labs to be obtained. Concern for UTI versus gross hematuria for other causes. Nurses were able to place a coud? catheter. The largest they can get him was an 18 [place]. They could not get a three-way catheter in. They have been irrigating and did remove significant number clots and grossly bloody urine. I still think he may have a bladder obstruction. They have tried bladder scanning him and really do not see much with that. Were obtaining a CAT scan. He was given additional dose of morphine and Jarvis will be given a second dose of morphine for his pain. I spoke to Dr. Roshan Persaud on-call for urology. He came down removed the Campbell catheter and replaced it with another 22 [place] irrigating catheter. It seems to be working better. He thinks the initial catheter may have been kinked or rolled back on itself. Now gotten 1-2+ liters of bloody fluid out. Will continue to irrigate the patient. We are awaiting a urinalysis. Dr. Rankin is going out of town I will not be able to accept the patient in consult. Multiple repeat exams currently at 430 the patient has basely continuously running irrigation. If that stops it clots off the 22 [place] Campbell catheter. He needs continuous irrigation to try to resolve the bleeding and the clot in his bladder. He cannot be discharged with this need. Hospitalist on page for admission. We currently do not have urology available. But [facility] the [facility] so the hospitalist here will admit. I am trying to arrange the patient to be on a wait list at one of the larger facilities. I did speak to [facility] transfer line. Their facilities currently are full and have no available beds. Patient will be placed on a wait list for [facility]. History & Record Review Discussion w/independent historian: Patient Additional record(s) reviewed:: Prior inpatient record, Prior outpatient record and Prior labs Lab Data Attestation: I reviewed the patient's lab results. Lab results narrative: CBC shows no elevated white count 25.5. H&H 8.2 and 28. Platelets 689. Electrolytes showed a sodium 132. Gap of 8. BUN 26 creatinine 1.15. Glucose 211. Urinalysis shows no nitrates. Only rare bacteria.. 100 red cells was consistent with his gross hematuria 5-10 white cells. Urine culture also be sent. Labs: Laboratory Results - last 24 hr 08/31/23 08/31/23 09:30 12:44 WBC 25.5 H RBC 3.75 L Hgb 8.2 L Hct 28.3 L MCV 75.5 L MCH 21.9 L MCHC 29.0 L RDW Std Deviation 58.0 H RDW Coeff of Mary 21.6 H Plt Count 689 H MPV 8.8 Immature Gran % (Auto) 0.900 Neut % (Auto) 61.5 Lymph % (Auto) 27.5 [place] % (Auto) 7.4 Eos % (Auto) 2.0 Baso % (Auto) 0.7 Absolute Neuts (auto) 15.7 H Absolute Lymphs (auto) 7.02 H Nucleated RBC % 0 [address] Review Reviewed Hypochromasia 1+ Anisocytosis 2+ Microcytosis 2+ Sodium 132 L Potassium 4.8 Chloride 98 Carbon Dioxide 26.0 Anion Gap 8 BUN 26 H Creatinine 1.15 Estim Creat Clear Calc 101.35 Est GFR (MDRD) Af Amer 85 Est GFR (MDRD) Non-Af 70 BUN/Creatinine Ratio 22.6 H Glucose 211 H Calcium 9.1 Urine Color Red Urine Clarity Cloudy Urine pH 7.0 Ur Specific [place] 1.010 Urine Protein 500 H Urine Glucose (UA) Normal Urine Ketones 5 H Urine Occult Blood 250 H Urine Nitrite Negative Urine Bilirubin Negative Urine Urobilinogen Normal Ur Leukocyte Esterase Negative Urine RBC > 100 SEEN Urine WBC 5-10 SEEN Ur Squamous Epith Cells 0-5 SEEN Urine Bacteria RARE Urine Mucus 0 SEEN Radiography Diagnostic Testing: Clinical Impression(s) from Imaging Studies Abdomen/Pelvis CT 08/31/23 10:25 IMPRESSION: Small amount of perihepatic fluid. Distended urinary bladder with side density material along its dependent portion suggestive either clot versus a mass. A Campbell catheter is seen with the balloon dilated in the prostatic urethra. Soft tissue defect in the medial aspects of both gluteus overlying the sacrum and coccyx. Electronically Signed: Meño Arrington MD at 10:59 EDT , Critical Care Time Critical Care Time: Yes Critical care time (excluding procedures): 30-74 minutes, Including time spent:, Discussing w/Patient &/or Family/Student Records Specialist, Discussing w/Consultants, Arranging Admission or Transfer, Performing Direct Patient Care at Bedside and - (40 min) Discharge Plan Dx/Rx/DC Orders Clinical Impression: History of deep vein thrombosis, History of paraplegia, Chronic anticoagulation, Gross hematuria, History of diabetes mellitus, Chronic anemia, Acute urinary retention Disposition Disposition: Acute Care [facility]
[2023-08-31] MEDS: Ondansetron 4 MG/2 ML Vial IV (09:34)
[2023-08-31] MEDS: morphine 8 MG/ML Syringe 6 MG IV (09:34)
[2023-08-31 09:42] LABS: Absolute Lymphocyte Count 7.02 X10^3/uL (0.83-4.51); Absolute Neutrophil Count 15.7 X10^3/uL (2.0-7.7); Basophil# 0.18 X10^3/uL; Basophil% 0.7 % (0-1); Eosinophil# 0.52 X10^3/uL; Hematocrit 28.3 % (40-54); Hemoglobin 8.2 g/dL (13.0-16.5); Lymphocyte # 7.02 X10^3/ul (0.83-4.51); Lymphocyte % 27.5 % (19-41); Mean Corpuscular Hgb 21.9 pg (27.0-32.0); Mean Corpuscular Volume 75.5 fL (80-94); Mean Platelet Vol. 8.8 fl (6.2-12.0); Monocyte# 1.88 X10^3/uL; Monocyte% 7.4 % (0-10); NRBC Flagged by Analyzer 0 % (0-5); Neutrophil # 15.65 X10^3/uL (2.7-7.7); Neutrophil % 61.5 % (47-70); POSITIVE DIFFERENTIAL YES; POSITIVE MORPHOLOGY YES; Platelet Count 689 K/mm3 (150-450); RBC Distribution Width CV 21.6 % (11.6-14.6); Red Blood Count 3.75 M/mm3 (4.6-6.2); White Blood Count 25.5 K/mm3 (4.4-11.0)
[2023-08-31 09:45] LABS: Differential Indicated SCAN CRITERIA MET
[2023-08-31 10:12] LABS: Anisocytosis 2+; Microcytosis 2+
[2023-08-31 10:13] LABS: Hypochromasia 1+
[2023-08-31] MEDS: morphine 8 MG/ML Syringe IV (10:13)
--- NOTE | 2023-08-31 10:14 | ED.RN ---
physisian order changed to 8 mg. prior to waste. full ordered dose given no medication wasted on second dose
[2023-08-31 10:18] LABS: Anion Gap 8 (5-15); BUN 26 mg/dL (7-18); BUN/Creat Ratio 22.6 RATIO (10-20); Calcium,Total 9.1 mg/dL (8.5-10.1); Chloride 98 mmol/L (98-107); Creatinine, Serum 1.15 mg/dL (0.70-1.30); EST Glomerular Filtration Rate 70 mL/min (>60); Est Glom Filt Rate - Afr Amer 85 mL/min (>60); Estimated Creatinine Clearance 101.35 ml/min; Glucose 211 mg/dL (74-106); Potassium 4.8 mmol/L (3.5-5.1); Sodium Level 132 mmol/L (136-145)
--- NOTE | 2023-08-31 10:25 | CT_ITS ---
STUDY: CT ABDOMEN AND PELVIS WITHOUT CONTRAST REASON FOR EXAM: Male, 58 years old. Abd pain and gross hematuria. ?? Urinary retention RADIATION DOSAGE (If Supplied By Facility): CTDIvol = ( 33.60 ) mGy, DLP = ( 1683.31 ) mGycm TECHNIQUE: Transaxial images were obtained from the dome of the diaphragm to the symphysis pubis without oral contrast, and without intravenous contrast. Sagittal and coronal images were reconstructed. Individualized dose optimization techniques were used for this CT. COMPARISON: Comparison is made with prior CT scan of pelvis dated July 29, 2023. FINDINGS: Increased linear markings at the right lung base suggestive of atelectasis and/or scarring. Calcification of the subcarinal lymph nodes. The visualized portions of the heart are within normal limits. Small amount of perihepatic fluid. This extends down into the inferior aspect of the liver. Question possible sludge in the gallbladder lumen. Normal spleen. Punctate calcification seen in the tibial portion of the pancreas. Normal bilateral adrenal glands. Normal right kidney. There is a 1.2 cm cyst in the inferior medial pole of the left kidney. Normal visualized stomach. Normal small intestine. A colostomy is seen in the lower anterior abdominal wall. The appendix is visualized and appears normal. There is scattered atherosclerotic calcification of the abdominal aorta, without a demonstrated aneurysm. Normal inferior vena cava. There is borderline retroperitoneal lymphadenopathy with enlarged nodes no greater than 10mm in the short axis diameter. Distended urinary bladder. There is irregular hyperdensity seen within the dependent portion of the bladder. This may represent either a large polypoid mass versus blood clot. Air is seen within the urinary bladder most likely secondary to Campbell catheter placement. The Campbell catheter is seen in the region of the prostatic urethra. Once again, there is evidence of decubitus ulcerations in the posterior medial aspect of the both gluteus regions. A drainage catheter seen in the left medial gluteus. The ulceration abuts the coccyx. There are diffuse degenerative changes of the visualized lumbar spine. Prior multilevel fusion of the lumbar spine. There appears to be destruction of the T8 vertebrae. Screw fixation is seen at that site. Status post right total hip replacement. CT/Abdomen/Pelvis without Cont IMPRESSION: Small amount of perihepatic fluid. Distended urinary bladder with side density material along its dependent portion suggestive either clot versus a mass. A Campbell catheter is seen with the balloon dilated in the prostatic urethra. Soft tissue defect in the medial aspects of both gluteus overlying the sacrum and coccyx. Electronically Signed: Meño Arrington MD at 10:59 EDT ,
--- NOTE | 2023-08-31 11:23 | ED.RN ---
pt bp low. notified
[2023-08-31] MEDS: HYDROmorphone 1 MG/ML Syringe IV (11:28)
[2023-08-31 12:56] LABS: Mucous, Urine 0 SEEN /hpf (<or=2+)
[2023-08-31 12:58] LABS: Color, Urine Red (Yellow); Glucose, Dipstick Normal (Normal); Ketone-Dipstick 5 mg/dl (Negative); Leukocyte Esterase-Dipstick Negative /ul (Negative); Nitrite-Dipstick Negative (Negative); Occult Blood-Urine 250 /ul (Negative); Protein-Dipstick 500 mg/dl (Negative); Urine Bilirubin Dipstick Negative (Negative); Urine Clarity Cloudy (Clear); Urine Urobilinogen Normal (Normal)
[2023-08-31 13:03] LABS: Red Blood Cells-Urine > 100 SEEN /hpf (0-5)
[2023-08-31 13:04] LABS: Squamous Epithelial Cells - UA 0-5 SEEN /hpf (0-5); White Blood Cells 5-10 SEEN /hpf (0-5)
[2023-08-31 13:05] LABS: Bacteria RARE /hpf (None Seen)
[2023-08-31] MEDS: 0.9% Normal Saline (500mL Bag) 500 ML 999 ML IV (13:07)
[2023-08-31] MEDS: fentaNYL 100 MCG/2 ML Ampul 50 MCG IV ×4 (13:49→19:15)
[2023-08-31 14:32] LABS: Pathologist Review Reviewed
[2023-08-31] MEDS: 0.9% Normal Saline (1000mL) 1,000 ML 999 ML IV (16:00)
--- NOTE | 2023-08-31 16:51 | PCM.HP.STD ---
HPI - General General Date of Admission: 08/31/23 Date of Service: 08/31/23 Chief Complaint: Urinary retention, hematuria. HPI Narrative The patient is a 58 y/o M w/ PMHx: Hx VTE, Diabetes mellitus type II, Chronic obstructive uropathy with chronic indwelling bartlett catheter, Chronic pain syndrome, GERD, Allergic rhinitis, Chronic BL LE lymphedema, Hx L1 injury and paraplegic status, BATOOL on BIPAP, Former tobacco use, Morbid obesity, HTN who presents to the [facility] ED on 08/31/23 from his nursing facility secondary to episodes of hematuria as well as blood clots in his Bartlett catheter unfortunately eventually this became obstructed and he did not have any urine output with significant onset of suprapubic pain and discomfort with bladder spasms rated 10 out of 10 in severity with no nausea or emesis nor fevers or chills prompting ED evaluation. Workup in the ED included T96.8, heart rate 119, BP 120/79, respiratory rate 18, 97% on room air, CBC with WC 25.5, hemoglobin 8.2, MCV 75.5, platelets 689 with left shift and lymphocytosis, BMP with sodium 132, BUN/creatinine 26/1.15, glucose 211, urinalysis with red cloudy appearing urine, protein 500, ketone 5, occult blood 250, nitrate negative, leukocyte Estrace negative with greater than 100 urine RBCs with no marked bacteria noted, CT abdomen and pelvis with a small amount of perihepatic fluid, distended urinary bladder with side density material along its dependent portion suggestive of clot versus mass, Bartlett catheter seen with balloon dilated in the prostatic urethra, soft tissue defect the middle aspect of both gluteus overlying the sacrum and coccyx consistent with patient chronic decubitus ulcers. Several attempts were made for Bartlett catheter placement in the ED however they were unsuccessful and fortunately urology Dr. Persaud was able to come in and place Bartlett catheter but unfortunately he will be unavailable for consultation beyond this until 09/05/2023. Given patient neurological needs transfer was requested and patient was accepted at [facility] however bed availability was noted to be 09/01/2023 thus hospitalist service requested to admit patient given prolonged timeline for transition to tertiary facility. In the ED patient was administered 1 L normal saline, fentanyl 50 mcg IV times total of 4, Dilaudid 1 mg IV x 1, Merrem 1 g IV x 1, morphine 8 mg IV x 2, morphine 6 mg IV x 1, Zofran 4 mg IV x 1. [facility] Medical History Acute osteomyelitis of spine Anemia Bilateral pulmonary embolism BMI greater than 40 Cellulitis of leg without foot, right Community acquired pneumonia Former tobacco use H/o back surgery HTN (hypertension) Hypoglycemia Lymphedema BATOOL treated with BiPAP Paraplegia Pressure injury, unstageable, with eschar Rhabdomyolysis Type 2 diabetes mellitus Home Medications fluticasone propionate 50 mcg/actuation nasal spray,suspension (Flonase Allergy Relief) 1 spray intranasal DAILY shortness of breath 03/03/20 [History Last Taken Unknown] apixaban 5 mg tablet (Eliquis) 5 mg PO DAILY 07/29/23 [History Last Taken 08/31/23] docusate sodium 100 mg capsule (Colace) 100 mg PO DAILY 07/29/23 [History Last Taken 08/31/23] gabapentin 100 mg capsule 100 mg PO TID 07/29/23 [History Last Taken 08/31/23] insulin glargine 100 unit/mL subcutaneous solution (Lantus U-100 Insulin) 20 unit subcut DAILY diabetes mellitus type 2 07/29/23 [History Last Taken 08/31/23] insulin lispro 100 unit/mL subcutaneous solution 8 unit subcut TID 07/29/23 [History Last Taken 08/31/23] methocarbamol 500 mg tablet 1,000 mg PO TID PRN cramps 07/29/23 [History Last Taken 08/31/23] morphine 30 mg tablet,extended release 30 mg PO Q12H 07/29/23 [History Last Taken 08/31/23] oxycodone 10 mg tablet 10 mg PO 4X/DAY PRN pain 07/29/23 [History Last Taken 08/31/23] polyethylene glycol 3350 17 gram/dose oral powder (ClearLax) 17 g PO DAILY 07/29/23 [History Last Taken 07/29/23] pantoprazole 40 mg tablet,delayed release 40 mg PO DAILY 08/31/23 [History Last Taken 08/31/23] Allergy/AdvReac Type Severity Reaction Status Date / Time No Known Allergies Allergy Verified 08/31/23 11:11 Family History Mother Hypertension Hypotension Diabetes Arthritis Father Hypertension Hypotension Heart disease Status post double vessel coronary artery bypass angina Arthritis Grandfather Prostate cancer Grandmother Uterine cancer Surgical History H/O sinus surgery Hx of spinal surgery Social History (Updated 08/31/23 @ 20:[address] eTrri Nino MD) household members: other details: parents housing: residential current occupational status: employed and retired Smoking Status: Former smoker alcohol intake: never substance use type: does not use do you feel safe at home: Yes ROS ROS Narrative Admission Review of Systems: CONSTITUTIONAL: No weight loss, fever, chills, + weakness or fatigue. HEENT: Eyes: No visual loss, blurred vision, double vision or yellow sclerae. Ears, Nose, Throat: No hearing loss, sneezing, congestion, runny nose or sore throat. SKIN: + Decubitous ulcers coccyx, breakdown BL buttock, heels, various abrasions, bilateral lower extremity venous stasis skin changes. CARDIOVASCULAR: No chest pain, chest pressure or chest discomfort, palpitations, edema, orthopnea, syncopal events. RESPIRATORY: No shortness of breath, cough or sputum, wheezing, hemoptysis. GASTROINTESTINAL: No nausea, vomiting, diarrhea, abdominal pain, melena, BRBPR. GENITOURINARY: Chronic indwelling Bartlett catheter, hematuria, clots, suprapubic pain. NEUROLOGICAL: + Chronic significant debility with paraplegia and sensation decrease from the lumbar region and downward, no headache, dizziness, syncope, change in bowel control, seizure. MUSCULOSKELETAL: + muscle, back pain, joint pain or stiffness. HEMATOLOGIC: + anemia, easy bleeding or bruising. LYMPHATICS: No enlarged nodes. No history of splenectomy. PSYCHIATRIC: No history of depression or anxiety. ENDOCRINOLOGIC: No reports of sweating, cold or heat intolerance. No polyuria or polydipsia. ALLERGIES: No history of asthma, hives, eczema or rhinitis. Vital Signs Vital Signs Vital Signs: 08/31/23 08:58 08/31/23 08:54 08/31/23 13:00 Temperature 96.8 F L Temperature Source Temporal Pulse Rate 119 H 113 H 120 H Respiratory Rate 18 20 H 16 Blood Pressure 120/79 145/77 H 114/72 Blood Pressure Mean 92 99 86 Pulse Ox 97 96 97 Oxygen Delivery Method Room Air Room Air Room Air Oxygen Flow Rate (L/min) 08/31/23 13:54 08/31/23 15:43 08/31/23 15:43 Temperature Temperature Source Pulse Rate 119 H 127 H Respiratory Rate 18 16 Blood Pressure 106/60 93/71 Blood Pressure Mean 75 78 Pulse Ox 93 83 99 Oxygen Delivery Method Room Air Room Air Nasal Cannula Oxygen Flow Rate (L/min) 3 08/31/23 16:10 Temperature 98.4 F Temperature Source Oral Pulse Rate 128 H Respiratory Rate 20 H Blood Pressure 103/69 Blood Pressure Mean 80 Pulse Ox 95 Oxygen Delivery Method Nasal Cannula Oxygen Flow Rate (L/min) 2 Weight Weight: 294 lb Body Mass Index (BMI) 39.9 Physical Exam Narrative Physical Examination: General: Awake, alert, oriented x > 3, cooperative, laying in the ED bed, fatigued appearing, notes still some suprapubic pain but improved w/ bartlett now functioning with CBI in place. Skin: Normal color, normal turgor, no icterus, no cyanosis except for various staged abrasions, ecchymoses, bilateral lower extremity venous stasis skin changes, intertrigo, lumbar and bilateral buttock chronic decubitus ulcers, chronic heel breakdown. HEENT: AT/NC, EOMI, PERRLA, dry MM, no carotid bruits or JVD noted; however, thickened neck makes evaluation difficult. Lungs: CTA bilaterally, moderate effort, mild decrease BL bases, no rales, ronchi or wheezing. Heart: Mildly tachycardic with regular rhythm; no gallop, rub audible. Abdomen: Soft, morbidly obese, NTTP of the abdomen but significant discomfort still with suprapubic palpation, distant BS, difficult to assess distention and HSM given habitus. Neurological: Bartlett catheter in place with hematuria noted in the bag with CBI running. Extremities: No cyanosis, no clubbing, significant bilateral lower extremity lymphedema with bilateral lower extremity stasis, see skin. Neurological: Patient awake, alert, oriented as noted, cognitive function improving but still not baseline intact; pupils equally reactive to light and accommodation, cranial nerves grossly normal, paraplegic with decreased sensation to lower extremities chronically, strength severely globally decreased secondary to acute presentation complicated by underlying history. Psychiatric: Affect appears fatigued, uncomfortable appearing, no acute evidence of depressive or anxiety feelings. Results Lab / Micro Data 08/31/23 09:30 08/31/23 09:30 Labs: Laboratory Results - last 24 hr 08/31/23 09:30: WBC 25.5 H, RBC 3.75 L, Hgb 8.2 L, Hct 28.3 L, MCV 75.5 L, MCH 21.9 L, MCHC 29.0 L, RDW Std Deviation 58.0 H, RDW Coeff of Mary 21.6 H, Plt Count 689 H, MPV 8.8, Immature Gran % (Auto) 0.900, Neut % (Auto) 61.5, Lymph % (Auto) 27.5, [place] % (Auto) 7.4, Eos % (Auto) 2.0, Baso % (Auto) 0.7, Absolute Neuts (auto) 15.7 H, Absolute Lymphs (auto) 7.02 H, Nucleated RBC % 0, Diff Path Review Reviewed, Hypochromasia 1+, Anisocytosis 2+, Microcytosis 2+, Sodium 132 L, Potassium 4.8, Chloride 98, Carbon Dioxide 26.0, Anion Gap 8, BUN 26 H, Creatinine 1.15, Estim Creat Clear Calc 101.35, Est GFR (MDRD) Af Amer 85, Est GFR (MDRD) Non-Af 70, BUN/Creatinine Ratio 22.6 H, Glucose 211 H, Calcium 9.1 08/31/23 12:44: Urine Color Red, Urine Clarity Cloudy, Urine pH 7.0, Ur Specific [place] 1.010, Urine Protein 500 H, Urine Glucose (UA) Normal, Urine Ketones 5 H, Urine Occult Blood 250 H, Urine Nitrite Negative, Urine Bilirubin Negative, Urine Urobilinogen Normal, Ur Leukocyte Esterase Negative, Urine RBC > 100 SEEN, Urine WBC 5-10 SEEN, Ur Squamous Epith Cells 0-5 SEEN, Urine Bacteria RARE, Urine Mucus 0 SEEN Imaging Radiology Impression Abdomen/Pelvis CT 08/31/23 10:25 IMPRESSION: Small amount of perihepatic fluid. Distended urinary bladder with side density material along its dependent portion suggestive either clot versus a mass. A Bartlett catheter is seen with the balloon dilated in the prostatic urethra. Soft tissue defect in the medial aspects of both gluteus overlying the sacrum and coccyx. Electronically Signed: Meño Arrington MD at 10:59 EDT , Assessment & Plan Assessment/Plan (1) Acute urinary retention: PLAN: Plan The patient is a 58 y/o M w/ PMHx: Hx VTE, Diabetes mellitus type II, Chronic obstructive uropathy with chronic indwelling bartlett catheter, Chronic pain syndrome, GERD, Allergic rhinitis, Chronic BL LE lymphedema, Hx L1 injury and paraplegic status, BATOOL on BIPAP, Former tobacco use, Morbid obesity, HTN who presents to the [facility] ED on 08/31/23 from his nursing facility secondary to episodes of hematuria as well as blood clots in his Bartlett catheter unfortunately eventually this became obstructed and he did not have any urine output with significant onset of suprapubic pain and discomfort with bladder spasms rated 10 out of 10 in severity with no nausea or emesis nor fevers or chills prompting ED evaluation. #1. Acute Urinary Retention w/ Chronic Indwelling Bartlett with notable Clots/Hematuria causing obstructive uropathy acute on chronic with concern for possible large bladder clot versus mass with significant leukocytosis but no overt evidence of complicated UTI however urine culture pending: Given no bed availability in a timely fashion at tertiary facility until transfer is completed will admit to medical surgical floor given stable vital signs, will continue new Bartlett catheter placed in the ED and continue bladder irrigation with as needed as needed manual irrigation as well, will cycle H&H's, continue to hold anticoagulation, will have as needed pain regimen above patient chronic, given significant leukocytosis and notable history will continue meropenem until urine culture is obtained but urinalysis is not marked appearing. #2. History of L1 injury with paraplegic status complicated by chronic decubitus ulcers: Encourage aggressive offloading, frequent positional changes, as noted patient plan to transition to [facility] hopefully in the morning however if prolonged may need to involve wound care for ongoing close evaluation, PT/OT/case management consulted. #3. Chronic constipation: We will continue patient home bowel regimen. #4. Chronic pain syndrome: Patient with significant chronic back pain and debility complicated by his paraplegic status, will continue patient home chronic gabapentin, oxycodone, morphine oral regimen with as needed breakthrough regimen in addition. #5. History of VTE: Temporarily holding patient anticoagulation given #1, resume once clinically appropriate. #6. Former tobacco use: Encourage continued tobacco cessation. #7. Morbid Obesity: Weight loss and lifestyle changes encouraged. #8. GERD: We will continue patient on PPI. #9. BATOOL: BiPAP nightly. #10. Chronic bilateral lower extremity lymphedema/edema: Will place neck Surya wraps. #11. Diabetes mellitus type II with chronic neuropathy: Hold oral home regimen, ADA diet, accu checks w/ ISS. #12. DVT prophylaxis: SCDs holding patient's anticoagulant therapy secondary to acute presentation #1. #13. CODE STATUS: Per facility paperwork patient full CODE STATUS. Charges/Coding Visit Charges Inpatient E&M: 06495 Init Hosp L3
[2023-08-31] MEDS: Meropenem 1 GM in 0.9% Normal Saline (100mL MB+) 100 ML IV ×2 (17:41→21:08)
--- NOTE | 2023-08-31 19:20 | ED.RN ---
bag #8 and bag #9 are up with CBI. has been running without clots for a couple of hours. previously was having to frequently manually irrigate to keep from clotting off.
[2023-08-31] MEDS: HYDROmorphone 0.5 MG/0.5 ML SYRINGE IV (20:45)
[2023-08-31] MEDS: 0.9% Saline Lock 10 ML Syringe IV (20:45)
[2023-08-31] MEDS: Gabapentin 100 MG Capsule PO (20:49)
[2023-08-31] MEDS: morphine SR 15 MG Tablet 30 MG PO (20:49)
[2023-08-31] MEDS: Methocarbamol 500 MG Tablet 1000 MG PO (20:49)
[2023-08-31 20:51] LABS: Hematocrit 22.7 % (40-54); Hemoglobin 6.6 g/dL (13.0-16.5)
[2023-08-31] MEDS: Insulin Lispro 100 UNIT/ML INSULN.PEN SC (20:55)
[2023-08-31] MEDS: Glucerna Shake 120 ML LIQUID PO (21:40)
[2023-08-31 22:00] LABS: Bedside Glucose 177 mg/dL (74-106)
[2023-08-31] MEDS: oxyCODONE 5 MG Tablet 10 MG PO (22:05)
[2023-09-01] VITALS (24 sets, daily range): BP systolic 97–149; BP diastolic 60–86; PULSE 103–127; RESP 12–22; TEMP 35.2–37.2; O2SAT 90–100; BMI 44.6
[2023-09-01 00:25] LABS: Hematocrit 21.2 % (40-54); Hemoglobin 6.1 g/dL (13.0-16.5)
[2023-09-01 04:31] LABS: Absolute Lymphocyte Count 2.03 X10^3/uL (0.83-4.51); Absolute Neutrophil Count 10.8 X10^3/uL (2.0-7.7); Basophil# 0.05 X10^3/uL; Basophil% 0.3 % (0-1); Eosinophil# 0.08 X10^3/uL; Eosinophils% 0.5 % (0-5); Hematocrit 20.9 % (40-54); Lymphocyte # 2.03 X10^3/ul (0.83-4.51); Lymphocyte % 13.9 % (19-41); Mean Corp Hgb Conc 28.2 g/dL (32-36); Mean Corpuscular Hgb 21.5 pg (27.0-32.0); Mean Platelet Vol. 9.1 fl (6.2-12.0); Monocyte# 1.56 X10^3/uL; Monocyte% 10.7 % (0-10); NRBC Flagged by Analyzer 0 % (0-5); Neutrophil # 10.76 X10^3/uL (2.7-7.7); Neutrophil % 73.6 % (47-70); POSITIVE COUNT YES; POSITIVE DIFFERENTIAL YES; POSITIVE MORPHOLOGY YES; Platelet Count 445 K/mm3 (150-450); RBC Distribution Width CV 21.4 % (11.6-14.6); RBC Distribution Width SD 58.7 fl (35.1-43.9); Red Blood Count 2.75 M/mm3 (4.6-6.2); White Blood Count 14.6 K/mm3 (4.4-11.0)
[2023-09-01 04:35] LABS: Differential Indicated SCAN CRITERIA MET; Hemoglobin 5.9 g/dL (13.0-16.5)
[2023-09-01] MEDS: Gabapentin 100 MG Capsule PO ×3 (04:37→21:54)
[2023-09-01] MEDS: HYDROmorphone 0.5 MG/0.5 ML SYRINGE IV (04:37)
[2023-09-01 04:49] LABS: ALB/GLOB Ratio 0.5 RATIO (0.9-2.4); AST(SGOT) 10 U/L (15-37); Alanine Aminotransfer ALT/SGPT 15 U/L (16-61); Albumin, Serum 2.2 g/dL (3.2-5.0); Alkaline Phosphatase 91 U/L (45-117); Anion Gap 6 (5-15); BUN 37 mg/dL (7-18); BUN/Creat Ratio 27.4 RATIO (10-20); Calcium,Total 8.2 mg/dL (8.5-10.1); Chloride 101 mmol/L (98-107); Creatinine, Serum 1.35 mg/dL (0.70-1.30); EST Glomerular Filtration Rate 58 mL/min (>60); Est Glom Filt Rate - Afr Amer 70 mL/min (>60); Estimated Creatinine Clearance 78.94 ml/min; Globulin 4.4 g/dL (2.2-4.2); Glucose 181 mg/dL (74-106); Potassium 5.3 mmol/L (3.5-5.1); Protein, Total 6.6 g/dL (6.4-8.2); Sodium Level 134 mmol/L (136-145)
[2023-09-01] MEDS: Meropenem 1 GM in 0.9% Normal Saline (100mL MB+) 100 ML IV ×3 (05:12→22:08)
[2023-09-01] MEDS: oxyCODONE 5 MG Tablet 10 MG PO ×3 (05:45→21:54)
[2023-09-01 06:46] LABS: Differential Comment SCANNED
[2023-09-01 06:47] LABS: Anisocytosis 1+; Platelet Estimate MOD INC (ADEQ)
[2023-09-01] MEDS: Insulin Lispro 100 UNIT/ML INSULN.PEN 8 UNIT SC ×3 (07:49→16:49)
[2023-09-01] MEDS: Insulin Lispro 100 UNIT/ML INSULN.PEN SC ×4 (07:49→21:57)
--- NOTE | 2023-09-01 08:29 | NURSING ---
I spoke wit [facility] transfer line and they stated pt is on the wait list for [facility] however they do not have a bed at this time they are hoping to have one this afternoon.
[2023-09-01] MEDS: Polyethylene Glycol 3350 17 GM PACKET PO (08:33)
[2023-09-01] MEDS: Docusate Sodium 100 MG Capsule PO (08:33)
[2023-09-01] MEDS: Pantoprazole Sodium 40 MG Tablet PO (08:33)
[2023-09-01] MEDS: Glucerna Shake 120 ML LIQUID PO ×3 (08:37→22:01)
--- NOTE | 2023-09-01 09:01 | CASEMGMT ---
Patient is from [place]. Patient is also awaiting transfer to [facility] in [place]. SW sent updates to [place] and notified them patient is awaiting transfer to [facility] in [place]. Frannie PARRISH
--- NOTE | 2023-09-01 09:41 | PN.HOSP_ITS ---
Reason for Visit Reason for Visit: Diagnoses Other retention of urine (08/31/23) Subjective Subjective Patient is a 58-year-old gentleman with history of L1 injury with subsequent paraplegia who has an indwelling Campbell catheter was sent to the ED with hematuria as well as urinary reten Objective Data Objective Data Vital Signs: Vital Signs Temp Pulse Resp BP Pulse Ox O2 Del Method O2 Flow Rate 97.7 F L 109 H 18 128/73 H 98 Nasal Cannula 3 09/01/23 08:44 09/01/23 08:44 09/01/23 08:44 09/01/23 08:44 09/01/23 08:44 09/01/23 08:44 09/01/23 08:44 Oxygen Flow Rate (L/min) 3 Oxygen Delivery Method Nasal Cannula Weight: 129.2 kg Body Mass Index (BMI) 44.6 Intake & Output: Intake and Output for Last 24 Hours 08/30/23 08/31/23 09/01/23 23:59 23:59 23:59 Intake Total 1620 / 1620 3241 / 3241 Output Total 8600 / 8600 3900 / 3900 Balance -6980 / -6980 -659 / -659 Lab / Micro Data 09/01/23 04:15 09/01/23 04:15 Labs: Laboratory Results - last 24 hr 08/31/23 09:30: WBC 25.5 H, RBC 3.75 L, Hgb 8.2 L, Hct 28.3 L, MCV 75.5 L, MCH 21.9 L, MCHC 29.0 L, RDW Std Deviation 58.0 H, RDW Coeff of Mary 21.6 H, Plt Count 689 H, MPV 8.8, Immature Gran % (Auto) 0.900, Neut % (Auto) 61.5, Lymph % (Auto) 27.5, [place] % (Auto) 7.4, Eos % (Auto) 2.0, Baso % (Auto) 0.7, Absolute Neuts (auto) 15.7 H, Absolute Lymphs (auto) 7.02 H, Nucleated RBC % 0, Diff Path Review Reviewed, Hypochromasia 1+, Anisocytosis 2+, Microcytosis 2+, Sodium 132 L, Potassium 4.8, Chloride 98, Carbon Dioxide 26.0, Anion Gap 8, BUN 26 H, Creatinine 1.15, Estim Creat Clear Calc 101.35, Est GFR (MDRD) Af Amer 85, Est GFR (MDRD) Non-Af 70, BUN/Creatinine Ratio 22.6 H, Glucose 211 H, Calcium 9.1 08/31/23 12:44: Urine Color Red, Urine Clarity Cloudy, Urine pH 7.0, Ur Specific [place] 1.010, Urine Protein 500 H, Urine Glucose (UA) Normal, Urine Ketones 5 H , Urine Occult Blood 250 H, Urine Nitrite Negative, Urine Bilirubin Negative, Urine Urobilinogen Normal, Ur Leukocyte Esterase Negative, Urine RBC > 100 SEEN, Urine WBC 5-10 SEEN, Ur Squamous Epith Cells 0-5 SEEN, Urine Bacteria RARE, Urine Mucus 0 SEEN 08/31/23 20:39: Hgb 6.6 L, Hct 22.7 L 08/31/23 20:54: POC Glucose 177 H 09/01/23 00:08: Hgb 6.1 L, Hct 21.2 L 09/01/23 02:50: Blood Type A POSITIVE, Antibody Screen POSITIVE, Antibody Identification ANTI-E, Crossmatch See Detail 09/01/23 04:15: WBC 14.6 H, RBC 2.75 L, Hgb 5.9 L*, Hct 20.9 L, MCV 76.0 L, MCH 21.5 L, MCHC 28.2 L, RDW Std Deviation 58.7 H, RDW Coeff of Mary 21.4 H, Plt Count 445, MPV 9.1, Immature Gran % (Auto) 1.000 H, Neut % (Auto) 73.6 H, Lymph % (Auto) 13.9 L, [place] % (Auto) 10.7 H, Eos % (Auto) 0.5, Baso % (Auto) 0.3, Absolute Neuts (auto) 10.8 H, Absolute Lymphs (auto) 2.03, Nucleated RBC % 0, Differential Comment SCANNED, Diff Path Review September naihd, Platelet Estimate MOD INC, Anisocytosis 1+, Sodium 134 L, Potassium 5.3 H, Chloride 101, Carbon Dioxide 27.0, Anion Gap 6, BUN 37 H, Creatinine 1.35 H, Estim Creat Clear Calc 78.94, Est GFR (MDRD) Af Amer 70, Est GFR (MDRD) Non-Af 58 L, BUN/Creatinine Rat io 27.4 H, Glucose 181 H, Calcium 8.2 L, Total Bilirubin 0.60, AST 10 L, ALT 15 L, Alkaline Phosphatase 91, Total Protein 6.6, Albumin 2.2 L, Globulin 4.4 H, Albumin/Globulin Ratio 0.5 L Radiography Diagnostic Testing: Radiology Impression Abdomen/Pelvis CT 08/31/23 10:25 IMPRESSION: Small amount of perihepatic fluid. Distended urinary bladder with side density material along its dependent portion suggestive either clot versus a mass. A Campbell catheter is seen with the balloon dilated in the prostatic urethra. Soft tissue defect in the medial aspects of both gluteus overlying the sacrum and coccyx. Electronically Signed: Meño Arrington MD at 10:59 EDT , Physical Exam Narrative GENERAL: Patient appears to be in some discomfort HEENT: Atraumatic; normocephalic EYES; Anicteric, Normal Conjunctiva NECK; supple, normal thyroid, RESPIRATORY: Diminished to auscultation CARDIOVASCULAR: Regular S1 S2, GI: soft, normoactive bowel sounds, : Campbell catheter in place with hematuria EXTREMITIES: edema, no clubbing, NEURO: Awake; paraplegic SKIN: Bilateral sacral decubitus PSYCH; Flat affect Assessment & Plan Assessment/Plan (1) Acute urinary retention: PLAN: Plan Patient is a 58-year-old gentleman with history of L1 injury with subsequent paraplegia who has an indwelling Campbell catheter was sent to the ED with hematuria as well as urinary retention 1. Acute urinary retention ? Secondary to hematuria. CT of the abdomen and pelvis obtained in the ED demonstrated distended urinary bladder with side density material along its de pendent portion suggestive either clot versus a mass.. Continuous bladder irrigation initiated in the ED arrangement made for patient to be transferred to tertiary care center with absence of urology in-house. Patient however had to be kept on the MedSurg floor pending transfer 2. Anemia Secondary to acute blood loss anemia as a result of patient hematuria. Transfused 1 unit PRBC hemoglobin still remains low at 5.9 and additional unit has been ordered 3. 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 Supportive care 4. Chronic constipation I did continue patient bowel regimen 5. Chronic pain syndrome ? Patient home medication regimen including oxycodone morphine methocarbamol as well as gabapentin continue 6. History of VTE ? Patient is on apixaban held given patient active bleeding?hematuria 7. Class III obesity with BMI of 44.6 ? Complicating care weight loss encouraged 8. Diabetes mellitus type II -patient's oral hypoglycemics held. Placed on long acting insulin, Accu-Cheks a. c. and at bedtime and covered with sliding scale insulin 9. Obstructive sleep apnea ? Patient is on PAP therapy at night consistent use encouraged 10.. Unstageable sacral decubitus ulcer ? Present on admission consult placed to wound care nurse 11. DVT prophylaxis ? Patient was on apixaban being held given his active hematuria Time spent in the patient's overall evaluation,decision-making process, review of diagnostic data, adjustment of management, discussion with other providers, nursing nursing and ancillary staff involved in patient's care documentation, 55 Minutes Charges/Coding Visit Charges Inpatient E&M: 92969 [facility] Hosp L3
[2023-09-01 09:55] LABS: Pathologist Review Reviewed
[2023-09-01] MEDS: DAKIN'S SOL HALF STRENGTH (=0.25%) 1 APPLIC TOPICAL (10:15)
[2023-09-01] MEDS: morphine SR 15 MG Tablet 30 MG PO ×2 (10:16→21:53)
[2023-09-01] MEDS: Insulin Glargine-YFGN 100 UNIT/ML Pen 20 UNIT SC (10:16)
[2023-09-01] MEDS: DiphenhydrAMINE 25 MG Capsule PO (12:15)
[2023-09-01 13:51] LABS: Bedside Glucose 191 mg/dL (74-106)
[2023-09-01 13:51] LABS: Bedside Glucose 161 mg/dL (74-106)
--- NOTE | 2023-09-01 13:51 | WOUNDNOTE ---
wound photo: sacrum
--- NOTE | 2023-09-01 14:45 | CPS ---
pt decreased to 2L NC at this time
[2023-09-01] MEDS: Juven (unflavored) Packet 1 PACKET PO (16:55)
[2023-09-01 17:32] LABS: Bedside Glucose 171 mg/dL (74-106)
[2023-09-01 17:59] LABS: Hematocrit 24.3 % (40-54); Hemoglobin 7.2 g/dL (13.0-16.5)
[2023-09-01] MEDS: Methocarbamol 500 MG Tablet 1000 MG PO (18:15)
[2023-09-01] MEDS: Acetaminophen 325 MG Tablet 650 MG PO (20:12)
[2023-09-01 21:46] LABS: Hematocrit 24.9 % (40-54); Hemoglobin 7.6 g/dL (13.0-16.5)
[2023-09-01] MEDS: 0.9% Saline Lock 10 ML Syringe IV (22:10)
[2023-09-01 22:56] LABS: Bedside Glucose 173 mg/dL (74-106)
[2023-09-02] VITALS (16 sets, daily range): BP systolic 114–173; BP diastolic 58–87; PULSE 96–115; RESP 12–18; TEMP 36.4–37; O2SAT 92–100; BMI 44.4
[2023-09-02] MEDS: Acetaminophen 325 MG Tablet 650 MG PO (02:21)
[2023-09-02] MEDS: oxyCODONE 5 MG Tablet 10 MG PO ×3 (04:11→21:03)
[2023-09-02 04:37] LABS: Absolute Lymphocyte Count 1.83 X10^3/uL (0.83-4.51); Absolute Neutrophil Count 6.2 X10^3/uL (2.0-7.7); Basophil# 0.06 X10^3/uL; Basophil% 0.6 % (0-1); Eosinophil# 0.45 X10^3/uL; Eosinophils% 4.7 % (0-5); Hematocrit 24.4 % (40-54); Hemoglobin 7.4 g/dL (13.0-16.5); Lymphocyte # 1.83 X10^3/ul (0.83-4.51); Mean Corp Hgb Conc 30.3 g/dL (32-36); Mean Corpuscular Hgb 23.6 pg (27.0-32.0); Mean Corpuscular Volume 77.7 fL (80-94); Mean Platelet Vol. 8.8 fl (6.2-12.0); Monocyte% 10.4 % (0-10); NRBC Flagged by Analyzer 0 % (0-5); Neutrophil # 6.22 X10^3/uL (2.7-7.7); Neutrophil % 64.7 % (47-70); Platelet Count 411 K/mm3 (150-450); Red Blood Count 3.14 M/mm3 (4.6-6.2); White Blood Count 9.6 K/mm3 (4.4-11.0)
[2023-09-02 04:59] LABS: Anion Gap 5 (5-15); BUN 26 mg/dL (7-18); BUN/Creat Ratio 50.1 RATIO (10-20); Calcium,Total 8.5 mg/dL (8.5-10.1); Chloride 102 mmol/L (98-107); Creatinine, Serum 0.52 mg/dL (0.70-1.30); EST Glomerular Filtration Rate 175 mL/min (>60); Est Glom Filt Rate - Afr Amer 212 mL/min (>60); Estimated Creatinine Clearance 204.39 ml/min; Glucose 182 mg/dL (74-106); Magnesium 1.8 mg/dL (1.6-2.6); Phosphorus 2.8 mg/dL (2.5-4.9); Potassium 4.3 mmol/L (3.5-5.1); Sodium Level 134 mmol/L (136-145)
[2023-09-02] MEDS: Gabapentin 100 MG Capsule PO ×2 (05:10→22:38)
[2023-09-02] MEDS: Meropenem 1 GM in 0.9% Normal Saline (100mL MB+) 100 ML IV ×3 (05:16→22:39)
[2023-09-02 08:24] LABS: Bedside Glucose 136 mg/dL (74-106)
[2023-09-02 08:44] LABS: Hemoglobin 7.2 g/dL (13.0-16.5)
--- NOTE | 2023-09-02 08:59 | PN.HOSP_ITS ---
Reason for Visit Reason for Visit: Diagnoses Other retention of urine (08/31/23) Subjective Subjective Transferred to tertiary care center pending. Patient still has hematuria Objective Data Objective Data Vital Signs: Vital Signs Temp Pulse Resp BP Pulse Ox O2 Del Method O2 Flow Rate 98.6 F 102 H 18 141/82 H 94 Nasal Cannula 2 09/02/23 03:42 09/02/23 06:51 09/02/23 06:51 09/02/23 03:42 09/02/23 06:51 09/02/23 03:46 09/02/23 03:46 Oxygen Flow Rate (L/min) 2 Oxygen Delivery Method Nasal Cannula Weight: 128.6 kg Body Mass Index (BMI) 44.4 Intake & Output: Intake and Output for Last 24 Hours 08/31/23 09/01/23 09/02/23 23:59 23:59 23:59 Intake Total 1620 / 1620 3603 / 3603 120 / 120 Output Total 8600 / 8600 24177 / 50445 5900 / 5900 Balance -6980 / -6980 -43666 / -61578 -5780 / -5780 Lab / Micro Data 09/02/23 08:25 09/02/23 04:22 Labs: Laboratory Results - last 24 hr 09/01/23 02:50: Blood Type A POSITIVE, Antibody Screen POSITIVE, Antibody Identification ANTI-E, Crossmatch See Detail 09/01/23 02:50: Crossmatch See Detail 09/01/23 04:15: Diff Path Review Reviewed 09/01/23 07:47: POC Glucose 161 H 09/01/23 11:33: POC Glucose 191 H 09/01/23 16:48: POC Glucose 171 H 09/01/23 17:52: Hgb 7.2 L, Hct 24.3 L 09/01/23 21:40: Hgb 7.6 L, Hct 24.9 L 09/01/23 21:51: POC Glucose 173 H 09/02/23 04:22: WBC 9.6, RBC 3.14 L, Hgb 7.4 L, Hct 24.4 L, MCV 77.7 L, MCH 23.6 L, MCHC 30.3 L D, RDW Std Deviation 57.0 H, RDW Coeff of Mary 20.0 H, Plt Count 411, MPV 8.8, Immature Gran % (Auto) 0.600, Neut % (Auto) 64.7, Lymph % (Auto) 19.0, Smith % (Auto) 10.4 H, Eos % (Auto) 4.7, Baso % (Auto) 0.6, Absolute Neuts (auto) 6.2, Absolute Lymphs (auto) 1.83, Nucleated RBC % 0, Sodium 134 L, Potassium 4.3, Chloride 102, Carbon Dioxide 27.0, Anion Gap 5, BUN 26 H, Creatinine 0.52 L, Estim Creat Clear Calc 204.39, Est GFR (MDRD) Af Amer 212, Est GFR (MDRD) Non-Af 175, BUN/Creatinine Ratio 50.1 H, Glucose 182 H, Calcium 8.5, Phosphorus 2.8, Magnesium 1.8 09/02/23 07:59: POC Glucose 136 H 09/02/23 08:25: Hgb 7.2 L, Hct 24.0 L Physical Exam Narrative GENERAL: Patient appears to be in some discomfort HEENT: Atraumatic; normocephalic EYES; Anicteric, Normal Conjunctiva NECK; supple, normal thyroid, RESPIRATORY: Diminished to auscultation CARDIOVASCULAR: Regular S1 S2, GI: soft, normoactive bowel sounds, : Campbell catheter in place with hematuria EXTREMITIES: edema, no clubbing, NEURO: Awake; paraplegic SKIN: Bilateral sacral decubitus PSYCH; Flat affect Assessment & Plan Assessment/Plan (1) Acute urinary retention: PLAN: Plan Patient is a 58-year-old gentleman with history of L1 injury with subsequent paraplegia who has an indwelling Campbell catheter was sent to the ED with hematuria as well as urinary retention 1. Acute urinary retention ? Secondary to hematuria. CT of the abdomen and pelvis obtained in the ED demonstrated distended urinary bladder with side density material along its dependent portion suggestive either clot versus a mass.. Continuous bladder irrigation initiated in the ED arrangement made for patient to be transferred to tertiary care center with absence of urology in-house. Patient however had to be kept on the MedSurg floor pending transfer ? 09/02/2023. Patient still has dylan hematuria. Will continue with CBI pending transfer to tertiary care center. 2. Anemia Secondary to acute blood loss anemia as a result of patient hematuria. Transfused 1 unit PRBC hemoglobin still remains low at 5.9 and additional unit has been ordered ? 09/02/2023. Patient has received 3 unit PRBC transfusion following his admission hemoglobin up to 7.2 3. 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 Supportive care 4. Chronic constipation I did continue patient bowel regimen 5. Chronic pain syndrome ? Patient home medication regimen including oxycodone morphine methocarbamol as well as gabapentin continue 6. History of VTE ? Patient is on apixaban held given patient active bleeding?hematuria 7. Class III obesity with BMI of 44.6 ? Complicating care weight loss encouraged 8. Diabetes mellitus type II -patient's oral hypoglycemics held. Placed on long acting insulin, Accu-Cheks a.c. and at bedtime and covered with sliding scale insulin 9. Obstructive sleep apnea ? Patient is on PAP therapy at night consistent use encouraged 10.. Unstageable sacral decubitus ulcer ? Present on admission consult placed to wound care nurse 11. DVT prophylaxis ? Patient was on apixaban being held given his active hematuria Time spent in the patient's overall evaluation,decision-making process, review of diagnostic data, adjustment of management, discussion with other providers, nursing nursing and ancillary staff involved in patient's care documentation, 35 minutes Charges/Coding Visit Charges Inpatient E&M: 76207 Subs Hosp L2
[2023-09-02] MEDS: Polyethylene Glycol 3350 17 GM PACKET PO (09:06)
[2023-09-02] MEDS: morphine SR 15 MG Tablet 30 MG PO ×2 (09:06→22:39)
[2023-09-02] MEDS: Pantoprazole Sodium 40 MG Tablet PO (09:07)
[2023-09-02] MEDS: Insulin Lispro 100 UNIT/ML INSULN.PEN 8 UNIT SC ×2 (09:08→11:39)
[2023-09-02] MEDS: Insulin Glargine-YFGN 100 UNIT/ML Pen 20 UNIT SC (09:09)
[2023-09-02] MEDS: Glucerna Shake 120 ML LIQUID PO ×2 (09:09→22:45)
[2023-09-02] MEDS: Juven (unflavored) Packet 1 PACKET PO (09:13)
[2023-09-02] MEDS: HYDROmorphone 0.5 MG/0.5 ML SYRINGE IV ×3 (10:34→21:03)
[2023-09-02] MEDS: HYDROmorphone 1 MG/ML Syringe IV (11:15)
[2023-09-02] MEDS: Insulin Lispro 100 UNIT/ML INSULN.PEN SC (11:40)
[2023-09-02 11:52] LABS: Bedside Glucose 161 mg/dL (74-106)
[2023-09-02] MEDS: Methocarbamol 500 MG Tablet 1000 MG PO (12:00)
[2023-09-02] MEDS: DAKIN'S SOL HALF STRENGTH (=0.25%) 1 APPLIC TOPICAL (12:18)
--- NOTE | 2023-09-02 13:28 | CON.PCM_ITS ---
Assessment & Plan Assessment/Plan (1) Gross hematuria: (2) Clot retention of urine: (3) Blood loss anemia: PLAN: Plan To the operating room for cystoscopy, clot evacuation and fulguration of any bleeding. Informed consent has been obtained. Will plan to continue CBI after the procedure. Transfusion of blood per primary service, continue to follow hemoglobin closely Continue antibiotics. He will need longstanding urologic management after this acute situation is handled. He will need to follow-up with a urologist that sees male patients on a regular basis. HPI Consult Data Date of Consult: 09/02/23 HPI Narrative Reason for Consultation: Gross hematuria with clot retention HPI Narrative: MELISSA ELIAS, is a 58 M who presented from a nursing facility 2 days ago with gross hematuria. At this time he was awaiting transfer to another hospital facility and it has been 2 days. His Campbell catheter at that time, the balloon was inflated in the prostatic fossa as seen on CT scan with a distended urinary bladder. His hemoglobin has been trending downward and he has been transfused 3 units of blood so far. I was called earlier today as the continuous bladder irrigation no longer was running, and the patient was in excruciating pain, staff unable to flush the indwelling Campbell. The patient is a paraplegic due to an accident. He has a chronic indwelling Campbell catheter and has been dealing with recurrent urinary tract infections as well as intermittent Campbell trauma. He also has a history of kidney stones. He is on anticoagulation chronically. He has a significant decubitus wound. He reports that he has never been seen by a urologist. Currently he is in significant pain from his abdomen. [facility] Medical History (Updated 09/02/23 @ 13:[address] Latha Rosado MD) Acute osteomyelitis of spine Anemia Bilateral pulmonary embolism Blood loss anemia BMI greater than 40 Cellulitis of leg without foot, right Clot retention of urine Community acquired pneumonia Former tobacco use H/o back surgery HTN (hypertension) Hypoglycemia Lymphedema BATOOL treated with BiPAP Paraplegia Pressure injury, unstageable, with eschar Rhabdomyolysis Type 2 diabetes mellitus Home Medications fluticasone propionate 50 mcg/actuation nasal spray,suspension (Flonase Allergy Relief) 1 spray intranasal DAILY shortness of breath 03/03/20 [History Last Taken Unknown] apixaban 5 mg tablet (Eliquis) 5 mg PO DAILY 07/29/23 [History Last Taken 08/31/23] docusate sodium 100 mg capsule (Colace) 100 mg PO DAILY 07/29/23 [History Last Taken 08/31/23] gabapentin 100 mg capsule 100 mg PO TID 07/29/23 [History Last Taken 08/31/23] insulin glargine 100 unit/mL subcutaneous solution (Lantus U-100 Insulin) 20 unit subcut DAILY diabetes mellitus type 2 07/29/23 [History Last Taken 08/31/23] insulin lispro 100 unit/mL subcutaneous solution 8 unit subcut TID 07/29/23 [History Last Taken 08/31/23] methocarbamol 500 mg tablet 1,000 mg PO TID PRN cramps 07/29/23 [History Last Taken 08/31/23] morphine 30 mg tablet,extended release 30 mg PO Q12H 07/29/23 [History Last Taken 08/31/23] oxycodone 10 mg tablet 10 mg PO 4X/DAY PRN pain 07/29/23 [History Last Taken 08/31/23] polyethylene glycol 3350 17 gram/dose oral powder (ClearLax) 17 g PO DAILY 07/29/23 [History Last Taken 07/29/23] pantoprazole 40 mg tablet,delayed release 40 mg PO DAILY 08/31/23 [History Last Taken 08/31/23] Allergy/AdvReac Type Severity Reaction Status Date / Time No Known Allergies Allergy Verified 08/31/23 11:11 Family History Mother Hypertension Hypotension Diabetes Arthritis Father Hypertension Hypotension Heart disease Status post double vessel coronary artery bypass angina Arthritis Grandfather Prostate cancer Grandmother Uterine cancer Surgical History H/O sinus surgery Hx of spinal surgery Social History household members: other details: parents housing: senior care current occupational status: employed and retired Smoking Status: Former smoker alcohol intake: never substance use type: does not use do you feel safe at home: Yes ROS Constitutional Constitutional: Reports systems reviewed and no addt'l complaints, except as documented Eyes Eyes: Reports systems reviewed and no addt'l complaints, except as documented ENT HEENT: Reports systems reviewed and no addt'l complaints, except as documented Cardiovascular Cardiovascular: Reports abdominal bloating and abdominal pain; Denies chest pain Respiratory/Chest Respiratory/Chest: Denies cough Gastrointestinal Gastrointestinal: Reports abdominal pain and cramping; Denies nausea or vomiting Genitourinary Genitourinary: Reports abdominal discomfort, hematuria and urinary urgency Musculoskeletal Musculoskeletal: Reports systems reviewed and no addt'l complaints, except as documented Integumentary Integumentary: Reports skin ulcer Neurologic Neurologic: Reports other Details: paraplegic due to an accident. Psychiatric Psychiatric: Reports systems reviewed and no addt'l complaints, except as documented Endocrine Endocrinology: Reports systems reviewed and no addt'l complaints, except as documented Hematologic/Lymphatic Hematologic/Lymphatic: Reports systems reviewed and no addt'l complaints, except as documented Allergic/Immunologic Allergic/Immunologic: Reports systems reviewed and no addt'l complaints, except as documented Physical Exam Const alert and oriented x3 General Appearance: in distress Positive for moderate and anxious Nutritional Appearance: obese HEENT normocephalic, head/scalp atraumatic, hearing grossly normal bilaterally, external ears normal, external nose normal and moist oral mucous membranes Eyes General Eye: normal appearance of both eyes Neck supple General: trachea midline Chest inspection of chest normal Chest: symmetrical chest wall rise Resp normal respiratory effort and normal air movement Effort and Inspection: able to speak in complete sentences and symmetric chest movement Cardio Rate: tachycardic GI Inspection: abdominal distention, ostomy present and pannus present Palpation: soft and tender testes normal Narrative: Patient with a nondraining 22 [place] three-way catheter in place. I removed the Campbell catheter and it was covered in obvious clot at the tip. I inserted a new 24 [place] three-way Campbell catheter all the way to the hub. A small amount of red urine drained. I began to irrigate and it was obvious that the patient is likely full of clot. The catheter is soft and I cannot get it to empty. The decision was made to take the patient to the operating room for cystoscopy, clot evacuation fulguration of bleeding. Penis: other Buried Scrotum: testes descended bilaterally Extremity normal to inspection Skin no jaundice, no petechiae and no mottling Neuro oriented x3, CN's II-XII intact bilaterally and No moves all extremities Psych mental status grossly normal, thought process normal and cooperative Lab / Micro Data 09/02/23 08:25 09/02/23 04:22 Labs: Laboratory Results - last 24 hr 09/01/23 02:50: Crossmatch See Detail 09/01/23 02:50: Crossmatch See Detail 09/01/23 07:47: POC Glucose 161 H 09/01/23 11:33: POC Glucose 191 H 09/01/23 16:48: POC Glucose 171 H 09/01/23 17:52: Hgb 7.2 L, Hct 24.3 L 09/01/23 21:40: Hgb 7.6 L, Hct 24.9 L 09/01/23 21:51: POC Glucose 173 H 09/02/23 04:22: WBC 9.6, RBC 3.14 L, Hgb 7.4 L, Hct 24.4 L, MCV 77.7 L, MCH 23.6 L, MCHC 30.3 L D, RDW Std Deviation 57.0 H, RDW Coeff of Mary 20.0 H, Plt Count 411, MPV 8.8, Immature Gran % (Auto) 0.600, Neut % (Auto) 64.7, Lymph % (Auto) 19.0, Stevens % (Auto) 10.4 H, Eos % (Auto) 4.7, Baso % (Auto) 0.6, Absolute Neuts (auto) 6.2, Absolute Lymphs (auto) 1.83, Nucleated RBC % 0, Sodium 134 L, Potassium 4.3, Chloride 102, Carbon Dioxide 27.0, Anion Gap 5, BUN 26 H, Creatinine 0.52 L, Estim Creat Clear Calc 204.39, Est GFR (MDRD) Af Amer 212, Est GFR (MDRD) Non-Af 175, BUN/Creatinine Ratio 50.1 H, Glucose 182 H, Calcium 8.5, Phosphorus 2.8, Magnesium 1.8 09/02/23 07:59: POC Glucose 136 H 09/02/23 08:25: Hgb 7.2 L, Hct 24.0 L 09/02/23 11:12: POC Glucose 161 H Micro: Microbiology 08/31/23 12:44 Urine Catheter - Catheter Urine Culture - Final Culture exhibits no growth.
--- NOTE | 2023-09-02 13:44 | OP.PCM_ITS ---
Report of Operation Date of Procedure: 09/02/23 Pre-Operative Diagnosis: Gross hematuria with clot retention of urine, chronic Campbell catheter, recurrent urinary tract infections Post-Operative Diagnosis: Same Surgery/Procedure Performed:: Cystoscopy, evacuation of clot, Surgeon: Latha Rosado Type of Anesthesia: MAC Description of Procedure: The patient is a 58-year-old paraplegic male with acute Campbell trauma with gross hematuria and clot retention secondary to his chronic indwelling Campbell catheter. The CBI stopped draining earlier today and she now presents for evacuation of the clot and fulguration of bleeding with further management for his Campbell trauma. Informed consent was obtained. The patient was taken to the operating room and placed on the operating room table. Anesthesia monitored the head, neck, airway, IV access and vital signs throughout the case. Once anesthesia was appropriately administered, the patient was placed into dorsolithotomy position was prepped and draped in usual sterile fashion. The cystoscope was inserted through the urethra under direct visualization into the urinary bladder. The bladder was full of clot and aggressive irrigation ensued for clot evacuation. Complications None Admit VTE Documentation VTE Present on Admission: Yes VTE Mechan Device Prophylaxis: SCD's VTE Pharm Prophylaxis ordered?: No Reason prophylaxis not ordered:: Medical Contraindication
--- NOTE | 2023-09-02 13:44 | PCM.OPRPT ---
Report of Operation Date of Procedure: 09/02/23 Pre-Operative Diagnosis: Gross hematuria with clot retention of urine, chronic Campbell catheter, recurrent urinary tract infections Post-Operative Diagnosis: Same Surgery/Procedure Performed:: Cystoscopy, evacuation of clot, cystogram Surgeon: Latha Rosado Type of Anesthesia: General Description of Procedure: The patient is a 58-year-old paraplegic male with acute Campbell trauma with gross hematuria and clot retention secondary to his chronic indwelling Campbell catheter and chronic anticoagulation. The CBI stopped draining earlier today and he now presents for evacuation of the clot and fulguration of bleeding. Informed consent was obtained. The patient was taken to the operating room and placed on the operating room table. Anesthesia monitored the head, neck, airway, IV access and vital signs throughout the case. Once anesthesia was appropriately administered, the patient was placed into dorsolithotomy position was prepped and draped in usual sterile fashion. The cystoscope was inserted through the urethra under direct visualization into the urinary bladder. The bladder was full of clot and aggressive irrigation ensued for clot evacuation. The clot was very organized and difficult to irrigate. Irrigation continued for well over an hour and a half. Repeat abdominal examinations were performed during the procedure to ensure that his abdomen remained soft. There was a question per the nursing staff of an increase in tension on the patient's left lower abdomen. At this time I drained the urinary bladder and a C-arm was brought in. Contrast was injected and followed up with normal saline. The bladder was then emptied. This was done under fluoroscopic visualization. The fluoroscopy revealed continued large amount of clot within the urinary bladder but no obvious perforation. The bladder continued to irrigate normally and the abdomen remained soft. After a significant amount of irrigation was done manually, I made the decision to allow the clot remaining to break up with a continuous bladder irrigation as the irrigant I was getting was clear. A 26 [place] three-way catheter was inserted to straight drain and the balloon was inflated with 30 cc. It was connected to continuous bladder irrigation where it ran pink-tinged to clear. I manually irrigated a few times before leaving the operating room and no clots were obtained and the bladder irrigation continued to run without evidence of blockage. The patient was then awakened and taken to the recovery room in good condition. There were no obvious complications during the procedure. Grafts/Implants Used: None Complications None Admit VTE Documentation VTE Present on Admission: Yes VTE Mechan Device Prophylaxis: SCD's VTE Pharm Prophylaxis ordered?: No Reason prophylaxis not ordered:: Medical Contraindication
--- NOTE | 2023-09-02 14:30 | CHAPLAIN ---
Type of Pastoral Visit ___ Initial Visit ___ Follow-up Visit ___ On-call Visit ___ General Patient Visit ___ Spiritual Assessment ___ Family Conference ___ Bereavement ___ Rapid Response ___ Code Blue ___ Other (describe below) Pastoral Care Referral From ___ Patient ___ Family ___ Nurse ___ Physician ___ Earring Maker ___ Transport Coordinator ___ Other (describe below) Sacrament/Intervention ___ Active listening ___ Anointing ___ Yarsani ___ Bereavement ___ Communion ___ Migdalia exploration ___ ___ Life review ___ Prayer ___ Reconciliation ___ Sacrament of Sick ___ Supportive presence ___ Wedding ___ Other (describe below) Pastoral Comments patient and bed are out of the room; left a calling card
[2023-09-02 16:43] LABS: Absolute Lymphocyte Count 1.59 X10^3/uL (0.83-4.51); Absolute Neutrophil Count 7.8 X10^3/uL (2.0-7.7); Basophil# 0.05 X10^3/uL; Basophil% 0.5 % (0-1); Eosinophils% 3.7 % (0-5); Hematocrit 27.2 % (40-54); Lymphocyte # 1.59 X10^3/ul (0.83-4.51); Lymphocyte % 14.8 % (19-41); Mean Corp Hgb Conc 29.4 g/dL (32-36); Mean Corpuscular Hgb 23.5 pg (27.0-32.0); Mean Platelet Vol. 9.1 fl (6.2-12.0); Monocyte# 0.83 X10^3/uL; Monocyte% 7.7 % (0-10); NRBC Flagged by Analyzer 0 % (0-5); Neutrophil # 7.79 X10^3/uL (2.7-7.7); Neutrophil % 72.3 % (47-70); Platelet Count 393 K/mm3 (150-450); RBC Distribution Width CV 19.2 % (11.6-14.6); RBC Distribution Width SD 56.2 fl (35.1-43.9); White Blood Count 10.8 K/mm3 (4.4-11.0)
[2023-09-02 16:53] LABS: Anion Gap 6 (5-15); BUN 21 mg/dL (7-18); BUN/Creat Ratio 42.2 RATIO (10-20); Calcium,Total 8.1 mg/dL (8.5-10.1); Chloride 105 mmol/L (98-107); EST Glomerular Filtration Rate 184 mL/min (>60); Est Glom Filt Rate - Afr Amer 222 mL/min (>60); Estimated Creatinine Clearance 209.35 ml/min; Glucose 144 mg/dL (74-106); Potassium 4.9 mmol/L (3.5-5.1); Sodium Level 137 mmol/L (136-145)
[2023-09-02 17:11] LABS: Bedside Glucose 123 mg/dL (74-106)
[2023-09-02 18:37] LABS: Bedside Glucose 124 mg/dL (74-106)
--- NOTE | 2023-09-02 19:17 | DS.PCM_ITS ---
Providers Date of Admission: 08/31/23 Date of Discharge: 09/02/23 Primary Care Physician: Dr. 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 09/02/23 12:07 Consult: Urology Routine Consulting Provider: Latha Rosado Reason for Consult: urinary retention EMERGENT Consult: Yes MD Notified: Yes Date Notified: 09/02/23 Time Notified: 12:07 Method of Notification: Verbal Reason For Visit: OBSTRUCTIVE UROPATHY, HEMATURIA Diagnosis Discharge Diagnosis (1) Gross hematuria: Status: Acute Code(s): R31.0 - Gross hematuria (2) Clot retention of urine: Status: Acute Code(s): R33.8 - Other retention of urine (3) Blood loss anemia: Status: Acute Code(s): D50.0 - Iron deficiency anemia secondary to blood loss (chronic) Plan Patient is a 58-year-old gentleman with history of L1 injury with subsequent paraplegia who has an indwelling Campbell catheter was sent to the ED with hematuri a as well as urinary retention 1. Acute urinary retention ? Secondary to hematuria. CT of the abdomen and pelvis obtained in the ED demonstrated distended urinary bladder with side density material along its dependent portion suggestive either clot versus a mass.. Continuous bladder irrigation initiated in the ED arrangement made for patient to be transferred to tertiary care center with absence of urology in-house. Patient however had to be kept on the MedSurg floor pending transfer ? 09/02/2023. Patient still has dylan hematuria. Will continue with CBI pending transfer to tertiary care center. 2. Anemia Secondary to acute blood loss anemia as a result of patient hematuria. Transfu sed 1 unit PRBC hemoglobin still remains low at 5.9 and additional unit has been ordered ? 09/02/2023. Patient has received 3 unit PRBC transfusion following his admission hemoglobin up to 7.2 3. 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 Supportive care 4. Chronic constipation I did continue patient bowel regimen 5. Chronic pain syndrome ? Patient home medication regimen including oxycodone morphine methocarbamol as well as gabapentin continue 6. History of VTE ? Patient is on apixaban held given patient active bleeding?hematuria 7. Class III obesity with BMI of 44.6 ? Complicating care weight loss encouraged 8. Diabetes mellitus type II -patient's oral hypoglycemics held. Placed on long acting insulin, Accu-Cheks a.c. and at bedtime and covered with sliding scale insulin 9. Obstructive sleep apnea ? Patient is on PAP therapy at night consistent use encouraged 10.. Unstageable sacral decubitus ulcer ? Present on admission consult placed to wound care nurse 11. DVT prophylaxis ? Patient was on apixaban being held given his active hematuria Time spent in the patient's overall evaluation,decision-making process, review of diagnostic data, adjustment of management, discussion with other providers, nursing nursing and ancillary staff involved in patient's care documentation, 35 minutes Medications at Discharge Home Medications fluticasone propionate 50 mcg/actuation nasal spray,suspension (Flonase Allergy Relief) 1 spray intranasal DAILY shortness of breath 03/03/20 apixaban 5 mg tablet (Eliquis) 5 mg PO DAILY 07/29/23 docusate sodium 100 mg capsule (Colace) 100 mg PO DAILY 07/29/23 gabapentin 100 mg capsule 100 mg PO TID 07/29/23 insulin glargine 100 unit/mL subcutaneous solution (Lantus U-100 Insulin) 20 unit subcut DAILY diabetes mellitus type 2 07/29/23 insulin lispro 100 unit/mL subcutaneous solution 8 unit subcut TID 07/29/23 methocarbamol 500 mg tablet 1,000 mg PO TID PRN cramps 07/29/23 morphine 30 mg tablet,extended release 30 mg PO Q12H 07/29/23 oxycodone 10 mg tablet 10 mg PO 4X/DAY PRN pain 07/29/23 polyethylene glycol 3350 17 gram/dose oral powder (ClearLax) 17 g PO DAILY 07/29/23 pantoprazole 40 mg tablet,delayed release 40 mg PO DAILY 08/31/23 Weight / BMI Weight Weight: 128.6 kg Body Mass Index (BMI) 44.4 ABG / Lab / Microbiology Data 09/02/23 16:26 09/02/23 16:26 Laboratory: Laboratory Results - last 24 hr 09/01/23 02:50: Crossmatch See Detail 09/01/23 02:50: Crossmatch See Detail 09/01/23 21:40: Hgb 7.6 L, Hct 24.9 L 09/01/23 21:51: POC Glucose 173 H 09/02/23 04:22: WBC 9.6, RBC 3.14 L, Hgb 7.4 L, Hct 24.4 L, MCV 77.7 L, MCH 23.6 L, MCHC 30.3 L D, RDW Std Deviation 57.0 H, RDW Coeff of Mary 20.0 H, Plt Count 411, MPV 8.8, Immature Gran % (Auto) 0.600, Neut % (Auto) 64.7, Lymph % (Auto) 19.0, [place] % (Auto) 10.4 H, Eos % (Auto) 4.7, Baso % (Auto) 0.6, Absolute Neuts (auto) 6.2, Absolute Lymphs (auto) 1.83, Nucleated RBC % 0, Sodium 134 L, Potassium 4.3, Chloride 102, Carbon Dioxide 27.0, Anion Gap 5, BUN 26 H, Creatinine 0.52 L, Estim Creat Clear Calc 204.39, Est GFR (MDRD) Af Amer 212, Est GFR (MDRD) Non-Af 175, BUN/Creatinine Ratio 50.1 H, Glucose 182 H, Calcium 8.5, Phosphorus 2.8, Magnesium 1.8 09/02/23 07:59: POC Glucose 136 H 09/02/23 08:25: Hgb 7.2 L, Hct 24.0 L 09/02/23 11:12: POC Glucose 161 H 09/02/23 16:26: WBC 10.8, RBC 3.40 L, Hgb 8.0 L, Hct 27.2 L, MCV 80.0, MCH 23.5 L, MCHC 29.4 L, RDW Std Deviation 56.2 H, RDW Coeff of Mary 19.2 H, Plt Count 393, MPV 9.1, Immature Gran % (Auto) 1.000 H, Neut % (Auto) 72.3 H, Lymph % (Auto) 14.8 L, [place] % (Auto) 7.7, Eos % (Auto) 3.7, Baso % (Auto) 0.5, Absolute Neuts (auto) 7.8 H, Absolute Lymphs (auto) 1.59, Nucleated RBC % 0, Sodium 137, Potassium 4.9, Chloride 105, Carbon Dioxide 26.0, Anion Gap 6, BUN 21 H, Creatinine 0.50 L, Estim Creat Clear Calc 209.35, Est GFR (MDRD) Af Amer 222, Est GFR (MDRD) Non-Af 184, BUN/Creatinine Ratio 42.2 H, Glucose 144 H, Calcium 8.1 L 09/02/23 16:52: POC Glucose 123 H 09/02/23 18:19: POC Glucose 124 H Microbiology: Microbiology 08/31/23 12:44 Urine Catheter - Catheter Urine Culture - Final Culture exhibits no growth. Meaningful Use Info Meaningful Use Meaningful Use Diagnoses (Choose all that apply): None applicable Ischemic Stroke Statin Dosing Therapy Reference: STATIN DOSE THERAPY REFERENCE: * Patients > 75 years receive moderate or high dose statin therapy. * Patients 75 years or YOUNGER should receive HIGH intensity statin dose unless contraindicated. You will be required to document reason for non-treatment if statin daily dose does not meet guidelines. HIGH DOSE STATIN THERAPY DAILY Atorvastatin > than or = to 40 mg Rosuvastatin > than or = to 20 mg Amlodipine + Atorvastatin > than or = to 2.5/40 mg Ezetimibe + Simvastatin 10/80 mg Simvastatin 80mg Discharge Plan Admission Admit Date/Time: 08/31/23 18:55 Attending Provider: Torrey Johnson Primary Care Provider: Wilma Thayer Consulting Providers: Terri Nino; Latha Rosado Discharge Orders/Prescriptions Prescriptions: Continued fluticasone propionate [Flonase Allergy Relief] 50 mcg/actuation spray,suspension 1 spray INTRANASAL DAILY Patient Comments: takes in once in awhile Rx Instructions: administer into each nostril pantoprazole 40 mg tablet,delayed release (DR/EC) 40 mg PO DAILY methocarbamol 500 mg tablet 1,000 mg PO TID PRN (Reason: cramps) morphine 30 mg tablet extended release 30 mg PO Q12H gabapentin 100 mg capsule 100 mg PO TID insulin glargine [Lantus U-100 Insulin] 100 unit/mL solution 20 unit subcut DAILY insulin lispro 100 unit/mL solution 8 unit subcut TID Patient Comments: 8 units in the morning, 8 at noon and 8 units in the evening oxycodone 10 mg tablet 10 mg PO 4X/DAY PRN (Reason: pain) docusate sodium [Colace] 100 mg capsule 100 mg PO DAILY polyethylene glycol 3350 [ClearLax] 17 gram/dose powder 17 g PO DAILY Held Eliquis 5 mg tablet 5 mg PO DAILY Hold Instructions: Resume on 09/16/23. Referrals / Follow Up: Wilma Thayer DO [Primary Care Provider] - Disposition Disposition (needs filled in before D/C Order can be placed): Acute Care Hospital Charges/Coding Visit Charges Inpatient E&M: 10075 Disch Hosp >30min
--- NOTE | 2023-09-02 20:11 | NURSING ---
bartlett flushed at 1800 as ordered
--- NOTE | 2023-09-02 20:32 | NURSING ---
Report called to Filomena Silvestre
[2023-09-03] VITALS (8 sets, daily range): BP systolic 137–175; BP diastolic 78–91; PULSE 103–114; RESP 16–18; TEMP 36.1–36.9; O2SAT 94–98; BMI 49.6
[2023-09-03 00:53] LABS: Hematocrit 26.1 % (40-54); Hemoglobin 7.8 g/dL (13.0-16.5)
[2023-09-03] MEDS: Acetaminophen 325 MG Tablet 650 MG PO (01:56)
[2023-09-03] MEDS: HYDROmorphone 0.5 MG/0.5 ML SYRINGE IV ×4 (03:19→21:53)
[2023-09-03] MEDS: oxyCODONE 5 MG Tablet 10 MG PO ×3 (03:19→17:55)
[2023-09-03] MEDS: Gabapentin 100 MG Capsule PO ×3 (05:11→21:42)
[2023-09-03] MEDS: Ondansetron 4 MG/2 ML Vial IV ×3 (05:11→21:53)
[2023-09-03] MEDS: Meropenem 1 GM in 0.9% Normal Saline (100mL MB+) 100 ML IV ×3 (05:12→21:42)
[2023-09-03 05:29] LABS: Absolute Lymphocyte Count 1.96 X10^3/uL (0.83-4.51); Absolute Neutrophil Count 6.3 X10^3/uL (2.0-7.7); Basophil# 0.04 X10^3/uL; Basophil% 0.4 % (0-1); Eosinophil# 0.54 X10^3/uL; Eosinophils% 5.5 % (0-5); Hematocrit 24.8 % (40-54); Hemoglobin 7.4 g/dL (13.0-16.5); Lymphocyte # 1.96 X10^3/ul (0.83-4.51); Lymphocyte % 19.9 % (19-41); Mean Corp Hgb Conc 29.8 g/dL (32-36); Mean Corpuscular Hgb 23.9 pg (27.0-32.0); Mean Platelet Vol. 8.8 fl (6.2-12.0); Monocyte# 0.98 X10^3/uL; NRBC Flagged by Analyzer 0 % (0-5); Neutrophil # 6.26 X10^3/uL (2.7-7.7); Neutrophil % 63.6 % (47-70); Platelet Count 392 K/mm3 (150-450); RBC Distribution Width CV 19.4 % (11.6-14.6); White Blood Count 9.8 K/mm3 (4.4-11.0)
[2023-09-03 05:49] LABS: Anion Gap 6 (5-15); BUN 14 mg/dL (7-18); BUN/Creat Ratio 35.2 RATIO (10-20); Chloride 105 mmol/L (98-107); EST Glomerular Filtration Rate 238 mL/min (>60); Est Glom Filt Rate - Afr Amer 288 mL/min (>60); Estimated Creatinine Clearance 261.68 ml/min; Glucose 145 mg/dL (74-106); Potassium 4.3 mmol/L (3.5-5.1); Sodium Level 136 mmol/L (136-145)
[2023-09-03] MEDS: 0.9% Saline Lock 10 ML Syringe IV ×4 (06:50→21:54)
[2023-09-03 06:56] LABS: Bedside Glucose 125 mg/dL (74-106)
[2023-09-03 06:57] LABS: Bedside Glucose 143 mg/dL (74-106)
--- NOTE | 2023-09-03 07:24 | PN.HOSP_ITS ---
Reason for Visit Reason for Visit: Diagnoses Iron deficiency anemia secondary to blood loss (chronic) (08/31/23) Gross hematuria (08/31/23) Other retention of urine (08/31/23) Subjective Subjective Patient underwent cystoscopy with evacuation of clot and cystogram by Dr. Rosado the day prior after patient developed acute urinary retention due to clotting of his Campbell catheter. We did obtain a bed for patient to be transferred to [facility] however the patient elected to stay Objective Data Objective Data Vital Signs: Vital Signs Temp Pulse Resp BP Pulse Ox O2 Del Method O2 Flow Rate 98.3 F 110 H 17 138/78 H 94 Nasal Cannula 2 09/03/23 05:30 09/03/23 05:30 09/03/23 05:30 09/03/23 05:30 09/03/23 05:30 09/03/23 05:30 09/03/23 05:30 Oxygen Flow Rate (L/min) 2 Oxygen Delivery Method Nasal Cannula Weight: 143.5 kg Body Mass Index (BMI) 49.6 Intake & Output: Intake and Output for Last 24 Hours 09/01/23 09/02/23 09/03/23 23:59 23:59 23:59 Intake Total 3603 / 3603 1360 / 1360 680 / 680 Output Total 02480 / 24545 27467 / 79307 3965 / 3965 Balance -74556 / -60051 -8690 / -8690 -3285 / -3285 Lab / Micro Data 09/03/23 05:16 09/03/23 05:16 Labs: Laboratory Results - last 24 hr 09/01/23 02:50: Crossmatch See Detail 09/02/23 07:59: POC Glucose 136 H 09/02/23 08:25: Hgb 7.2 L, Hct 24.0 L 09/02/23 11:12: POC Glucose 161 H 09/02/23 16:26: WBC 10.8, RBC 3.40 L, Hgb 8.0 L, Hct 27.2 L, MCV 80.0, MCH 23.5 L, MCHC 29.4 L, RDW Std Deviation 56.2 H, RDW Coeff of Mary 19.2 H, Plt Count 393, MPV 9.1, Immature Gran % (Auto) 1.000 H, Neut % (Auto) 72.3 H, Lymph % (Auto) 14.8 L, [place] % (Auto) 7.7, Eos % (Auto) 3.7, Baso % (Auto) 0.5, Absolute Neuts (auto) 7.8 H, Absolute Lymphs (auto) 1.59, Nucleated RBC % 0, Sodium 137, Potassium 4.9, Chloride 105, Carbon Dioxide 26.0, Anion Gap 6, BUN 21 H, Creatinine 0.50 L, Estim Creat Clear Calc 209.35, Est GFR (MDRD) Af Amer 222, Est GFR (MDRD) Non-Af 184, BUN/Creatinine Ratio 42.2 H, Glucose 144 H, Calcium 8.1 L 09/02/23 16:52: POC Glucose 123 H 09/02/23 18:19: POC Glucose 124 H 09/02/23 22:45: POC Glucose 125 H 09/03/23 00:43: Hgb 7.8 L, Hct 26.1 L 09/03/23 05:16: WBC 9.8, RBC 3.10 L, Hgb 7.4 L, Hct 24.8 L, MCV 80.0, MCH 23.9 L , MCHC 29.8 L, RDW Std Deviation 57.0 H, RDW Coeff of Mary 19.4 H, Plt Count 392, MPV 8.8, Immature Gran % (Auto) 0.600, Neut % (Auto) 63.6, Lymph % (Auto) 19.9, [place] % (Auto) 10.0, Eos % (Auto) 5.5 H, Baso % (Auto) 0.4, Absolute Neuts (auto) 6.3, Absolute Lymphs (auto) 1.96, Nucleated RBC % 0, Sodium 136, Potassium 4.3, Chloride 105, Carbon Dioxide 25.0, Anion Gap 6, BUN 14, Creatinine 0.40 L, Estim Creat Clear Calc 261.68, Est GFR (MDRD) Af Amer 288, Est GFR (MDRD) Non-Af 238, BUN/Creatinine Ratio 35.2 H, Glucose 145 H, Calcium 8.0 L 09/03/23 06:25: POC Glucose 143 H Micro: Microbiology 08/31/23 12:44 Urine Catheter - Catheter Urine Culture - Final Culture exhibits no growth. Physical Exam Narrative GENERAL: Patient appears to be in some discomfort HEENT: Atraumatic; normocephalic EYES; Anicteric, Normal Conjunctiva NECK; supple, normal thyroid, RESPIRATORY: Diminished to auscultation CARDIOVASCULAR: Regular S1 S2, GI: soft, normoactive bowel sounds, : Campbell catheter in place with hematuria EXTREMITIES: edema, no clubbing, NEURO: Awake; paraplegic SKIN: Bilateral sacral decubitus PSYCH; Flat affect Assessment & Plan Assessment/Plan (1) Gross hematuria: (2) Clot retention of urine: (3) Blood loss anemia: PLAN: Plan Patient is a 58-year-old gentleman with history of L1 injury with subsequent paraplegia who has an indwelling Campbell catheter was sent to the ED with hematuria as well as urinary retention 1. Acute urinary retention ? Secondary to hematuria. CT of the abdomen and pelvis obtained in the ED demonstrated distended urinary bladder with side density material along its dependent portion suggestive either clot versus a mass.. Continuous bladder irrigation initiated in the ED arrangement made for patient to be transferred to tertiary care center with absence of urology in-house. Patient however had to be kept on the MedSurg floor pending transfer ? 09/02/2023. Patient still has dylan hematuria. Will continue with CBI pending [facility]. ? 09/03/2023;Patient underwent cystoscopy with evacuation of clot and cystogram by Dr. Rosado the day prior after patient developed acute urinary retention due to clotting of his Campbell catheter. We did obtain a bed for patient to be transferred to [facility] however the patient elected to stay. Plan is for patient to undergo repeat cystoscopy and clot evaluation on 09/04/2023 2. Anemia Secondary to acute blood loss anemia as a result of patient hematuria. Transfused 1 unit PRBC hemoglobin still remains low at 5.9 and additional unit has been ordered ? 09/02/2023. Patient has received 3 unit PRBC transfusion following his admission hemoglobin up to 7.2 ? 09/03/2023; hemoglobin still down at 7.4. Patient has received a total of 4 unit PRBC since admission 3. 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 Supportive care 4. Chronic constipation I did continue patient bowel regimen 5. Chronic pain syndrome ? Patient home medication regimen including oxycodone morphine methocarbamol as well as gabapentin continue 6. History of VTE ? Patient is on apixaban held given patient active bleeding?hematuria 7. Class III obesity with BMI of 44.6 ? Complicating care weight loss encouraged 8. Diabetes mellitus type II -patient's oral hypoglycemics held. Placed on long acting insulin, Accu-Cheks a.c. and at bedtime and covered with sliding scale insulin 9. Obstructive sleep apnea ? Patient is on PAP therapy at night consistent use encouraged 10.. Unstageable sacral decubitus ulcer ? Present on admission consult placed to wound care nurse 11. DVT prophylaxis ? Patient was on apixaban being held given his active hematuria Time spent in the patient's overall evaluation,decision-making process, review of diagnostic data, adjustment of management, discussion with other providers, nursing nursing and ancillary staff involved in patient's care documentation, 35 minutes Charges/Coding Visit Charges Inpatient E&M: 70528 [facility] Hosp L2
[2023-09-03] MEDS: Docusate Sodium 100 MG Capsule PO (08:45)
[2023-09-03] MEDS: Glucerna Shake 120 ML LIQUID PO ×2 (08:45→17:37)
[2023-09-03] MEDS: Juven (unflavored) Packet 1 PACKET PO ×2 (08:45→17:37)
[2023-09-03] MEDS: Pantoprazole Sodium 40 MG Tablet PO (08:46)
[2023-09-03] MEDS: Insulin Glargine-YFGN 100 UNIT/ML Pen 20 UNIT SC (10:36)
[2023-09-03] MEDS: morphine SR 15 MG Tablet 30 MG PO ×2 (10:40→21:42)
[2023-09-03 11:00] LABS: Bedside Glucose 126 mg/dL (74-106)
[2023-09-03 11:00] LABS: Bedside Glucose 143 mg/dL (74-106)
[2023-09-03] MEDS: Insulin Lispro 100 UNIT/ML INSULN.PEN SC (12:22)
[2023-09-03] MEDS: Insulin Lispro 100 UNIT/ML INSULN.PEN 8 UNIT SC (12:23)
[2023-09-03] MEDS: Polyethylene Glycol 3350 17 GM PACKET PO (12:24)
[2023-09-03 12:54] LABS: Bedside Glucose 150 mg/dL (74-106)
[2023-09-03] MEDS: DAKIN'S SOL HALF STRENGTH (=0.25%) 1 APPLIC TOPICAL ×2 (16:09→21:43)
--- NOTE | 2023-09-03 16:09 | NURSING ---
Dressing change to coccyx region. Old dressing saturated with yellow/red drainage. Wound bed red with some granulation tissue noted on right side of wound. Area cleansed with saline. Wet to dry Dakin solution Kerlix applied to wound with ABD over top and secured with tape.
[2023-09-03 17:21] LABS: Bedside Glucose 167 mg/dL (74-106)
[2023-09-03] MEDS: proCHLORPERazine 10 MG/2 ML Vial 5 MG IV (20:08)
[2023-09-03] MEDS: hydrALAZINE 20 MG/ML Vial 10 MG IV (20:11)
[2023-09-03 22:47] LABS: Bedside Glucose 134 mg/dL (74-106)
[2023-09-04] VITALS (16 sets, daily range): BP systolic 123–151; BP diastolic 61–89; PULSE 88–124; RESP 10–20; TEMP 36.1–37.2; O2SAT 92–100; BMI 49.6; BMI 46.5
--- NOTE | 2023-09-04 00:35 | CPS ---
Patient refused BIPAP use due to stomach hurting when he wears it
[2023-09-04] MEDS: Meropenem 1 GM in 0.9% Normal Saline (100mL MB+) 100 ML IV ×3 (05:24→21:29)
[2023-09-04 05:38] LABS: Absolute Lymphocyte Count 2.65 X10^3/uL (0.83-4.51); Absolute Neutrophil Count 4.6 X10^3/uL (2.0-7.7); Basophil# 0.05 X10^3/uL; Basophil% 0.6 % (0-1); Eosinophil# 0.74 X10^3/uL; Eosinophils% 8.3 % (0-5); Hemoglobin 7.3 g/dL (13.0-16.5); Lymphocyte # 2.65 X10^3/ul (0.83-4.51); Lymphocyte % 29.6 % (19-41); Mean Corp Hgb Conc 29.2 g/dL (32-36); Mean Corpuscular Hgb 23.5 pg (27.0-32.0); Mean Corpuscular Volume 80.6 fL (80-94); Mean Platelet Vol. 8.9 fl (6.2-12.0); Monocyte# 0.83 X10^3/uL; Monocyte% 9.3 % (0-10); NRBC Flagged by Analyzer 0.2 % (0-5); Neutrophil # 4.61 X10^3/uL (2.7-7.7); Neutrophil % 51.4 % (47-70); Platelet Count 400 K/mm3 (150-450); RBC Distribution Width CV 19.6 % (11.6-14.6); RBC Distribution Width SD 57.8 fl (35.1-43.9)
[2023-09-04 05:53] LABS: Anion Gap 5 (5-15); BUN 10 mg/dL (7-18); Calcium,Total 8.1 mg/dL (8.5-10.1); Chloride 107 mmol/L (98-107); Creatinine, Serum 0.28 mg/dL (0.70-1.30); EST Glomerular Filtration Rate 360 mL/min (>60); Est Glom Filt Rate - Afr Amer 435 mL/min (>60); Estimated Creatinine Clearance 398.67 ml/min; Glucose 109 mg/dL (74-106); Potassium 3.7 mmol/L (3.5-5.1); Sodium Level 140 mmol/L (136-145)
[2023-09-04] MEDS: HYDROmorphone 0.5 MG/0.5 ML SYRINGE IV ×2 (06:20→22:46)
[2023-09-04 06:50] LABS: Bedside Glucose 128 mg/dL (74-106)
--- NOTE | 2023-09-04 08:02 | PN.HOSP_ITS ---
Reason for Visit Reason for Visit: Diagnoses Iron deficiency anemia secondary to blood loss (chronic) (08/31/23) Gross hematuria (08/31/23) Other retention of urine (08/31/23) Subjective Subjective ? Patient underwent repeat Cystoscopy, clot evacuation, fulguration of bleeding by Dr. Rosado this morning. Objective Data Objective Data Vital Signs: Vital Signs Temp Pulse Resp BP Pulse Ox O2 Del Method O2 Flow Rate 97.5 F L 92 12 145/88 H 100 CPAP 2 09/04/23 06:05 09/04/23 06:05 09/04/23 06:05 09/04/23 06:05 09/04/23 06:05 09/04/23 06:05 09/04/23 05:15 Oxygen Flow Rate (L/min) 2 Oxygen Delivery Method CPAP Weight: 134.5 kg Body Mass Index (BMI) 46.5 Intake & Output: Intake and Output for Last 24 Hours 09/02/23 09/03/23 09/04/23 23:59 23:59 23:59 Intake Total 1360 / 1360 3920 / 3920 120 / 120 Output Total 79605 / 63098 78186 / 13406 3300 / 3300 Balance -8690 / -8690 -6974 / -6974 -3180 / -3180 Lab / Micro Data 09/04/23 05:00 09/04/23 05:00 Labs: Laboratory Results - last 24 hr 09/03/23 07:58: POC Glucose 126 H 09/03/23 10:35: POC Glucose 143 H 09/03/23 12:20: POC Glucose 150 H 09/03/23 16:41: POC Glucose 167 H 09/03/23 21:41: POC Glucose 134 H 09/04/23 05:00: WBC 9.0, RBC 3.10 L, Hgb 7.3 L, Hct 25.0 L, MCV 80.6, MCH 23.5 L , MCHC 29.2 L, RDW Std Deviation 57.8 H, RDW Coeff of Mary 19.6 H, Plt Count 400, MPV 8.9, Immature Gran % (Auto) 0.800, Neut % (Auto) 51.4, Lymph % (Auto) 29.6, [place] % (Auto) 9.3, Eos % (Auto) 8.3 H, Baso % (Auto) 0.6, Absolute Neuts (auto) 4.6, Absolute Lymphs (auto) 2.65, Nucleated RBC % 0.2, Sodium 140, Potassium 3.7, Chloride 107, Carbon Dioxide 28.0, Anion Gap 5, BUN 10, Creatinine 0.28 L, Estim Creat Clear Calc 398.67, Est GFR (MDRD) Af Amer 435, Est GFR (MDRD) Non-Af 360, BUN/Creatinine Ratio 36.0 H, Glucose 109 H, Calcium 8.1 L 09/04/23 06:07: POC Glucose 128 H Micro: Microbiology 08/31/23 12:44 Urine Catheter - Catheter Urine Culture - Final Culture exhibits no growth. Physical Exam Narrative GENERAL: Patient appears to be in some discomfort HEENT: Atraumatic; normocephalic EYES; Anicteric, Normal Conjunctiva NECK; supple, normal thyroid, RESPIRATORY: Diminished to auscultation CARDIOVASCULAR: Regular S1 S2, GI: soft, normoactive bowel sounds, : Campbell catheter in place with hematuria EXTREMITIES: edema, no clubbing, NEURO: Awake; paraplegic SKIN: Bilateral sacral decubitus PSYCH; Flat affect Assessment & Plan Assessment/Plan (1) Gross hematuria: (2) Clot retention of urine: (3) Blood loss anemia: PLAN: Plan Patient is a 58-year-old gentleman with history of L1 injury with subsequent paraplegia who has an indwelling Campbell catheter was sent to the ED with hematuria as well as urinary retention 1. Acute urinary retention ? Secondary to hematuria. CT of the abdomen and pelvis obtained in the ED demonstrated distended urinary bladder with side density material along its dependent portion suggestive either clot versus a mass.. Continuous bladder irrigation initiated in the ED arrangement made for patient to be transferred to tertiary care center with absence of urology in-house. Patient however had to be kept on the MedSurg floor pending transfer ? 09/02/2023. Patient still has dylan hematuria. Will continue with CBI pending transfer to tertiary care center. ? 09/03/2023;Patient underwent cystoscopy with evacuation of clot and cystogram by Dr. Rosado the day prior after patient developed acute urinary retention due to clotting of his Campbell catheter. We did obtain a bed for patient to be transferred to [facility] however the patient elected to stay. Plan is for patient to undergo repeat cystoscopy and clot evaluation on 09/04/2023 -09/04/2023; Patient underwent repeat Cystoscopy, clot evacuation, fulguration of bleeding by Dr. Rosado this morning. Readmitted to PCU with continuation of CBI 2. Anemia Secondary to acute blood loss anemia as a result of patient hematuria. Transfused 1 unit PRBC hemoglobin still remains low at 5.9 and additional unit has been ordered ? 09/02/2023. Patient has received 3 unit PRBC transfusion following his admission hemoglobin up to 7.2 ? 09/03/2023; hemoglobin still down at 7.4. Patient has received a total of 4 unit PRBC since admission 3. 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 Supportive care 4. Chronic constipation I did continue patient bowel regimen 5. Chronic pain syndrome ? Patient home medication regimen including oxycodone morphine methocarbamol as well as gabapentin continue 6. History of VTE ? Patient is on apixaban held given patient active bleeding?hematuria 7. Class III obesity with BMI of 44.6 ? Complicating care weight loss encouraged 8. Diabetes mellitus type II -patient's oral hypoglycemics held. Placed on long acting insulin, Accu-Cheks a.c. and at bedtime and covered with sliding scale insulin 9. Obstructive sleep apnea ? Patient is on PAP therapy at night consistent use encouraged 10.. Unstageable sacral decubitus ulcer ? Present on admission consult placed to wound care nurse 11. DVT prophylaxis ? Patient was on apixaban being held given his active hematuria Time spent in the patient's overall evaluation,decision-making process, review of diagnostic data, adjustment of management, discussion with other providers, nursing nursing and ancillary staff involved in patient's care documentation, 35 minutes Charges/Coding Visit Charges Inpatient E&M: 58579 Subs Hosp L2
--- NOTE | 2023-09-04 09:07 | PCM.OPRPT ---
Report of Operation Date of Procedure: 09/04/23 Pre-Operative Diagnosis: Gross hematuria, Campbell trauma, clot retention Post-Operative Diagnosis: Same Surgery/Procedure Performed:: Cystoscopy, clot evacuation, fulguration of bleeding Surgeon: Latha Rosado Type of Anesthesia: General Description of Procedure: The patient is a 58-year-old male with Campbell trauma and clot retention who has been on continuous bladder irrigation with [id number] manual irrigation for the last day and a half. He underwent cystoscopy with a large amount of clot evacuation on Tuesday. His urine has been clear to pink-tinged since then with some debris coming out with the manual irrigations. He now presents for a more definitive cystoscopy with clot evacuation and fulgurating of any bleeding. Informed consent was obtained. The patient was taken to the operating room and placed on the operating room table. Anesthesia monitored the head, neck, airway, IV access and vital signs throughout the case. Once anesthesia was appropriately administered, the patient was placed into dorsolithotomy position was prepped and draped in usual sterile fashion. The cystoscope with 70 degree lens was inserted through the urethra under direct visualization into the urinary bladder. A significant amount of prostatic fossa and proximal urethral trauma was identified. Once into the urinary bladder, bilateral ureteral orifices were identified in the correct anatomic position without any evidence of injury. There was a small amount of clot remaining. The clot was then irrigated and evacuated to completion. The cystoscope was then reinserted revealing no injury to the urinary bladder, no mass. There is a small area of active bleeding from the prostatic fossa and this was fulgurated for hemostatic control. At this time the cystoscope was removed. A 24 Bulgarian three-way Campbell catheter was inserted using a catheter guide. 45 cc of fluid was inserted into the Campbell balloon. The catheter position is essentially at the hub. Continuous bladder irrigation was connected and the irrigant continued to be clear. The patient was then awakened and taken to the recovery room in good condition. There were no complications during this procedure. If the irrigant continues to be clear, the plan will be to titrate it to off and from a urologic standpoint if he remains clear the anticoagulation can be restarted. Grafts/Implants Used: None Complications None Admit VTE Documentation VTE Present on Admission: Yes VTE Mechan Device Prophylaxis: SCD's VTE Pharm Prophylaxis ordered?: No Reason prophylaxis not ordered:: Medical Contraindication
[2023-09-04 09:28] LABS: Bedside Glucose 110 mg/dL (74-106)
[2023-09-04] MEDS: Docusate Sodium 100 MG Capsule PO (10:02)
[2023-09-04] MEDS: Fluticasone 0.05% 1 SPRAY NASAL.SRY NASAL (10:02)
[2023-09-04] MEDS: Glucerna Shake 120 ML LIQUID PO ×4 (10:03→21:29)
[2023-09-04] MEDS: Pantoprazole Sodium 40 MG Tablet PO (10:03)
[2023-09-04] MEDS: Polyethylene Glycol 3350 17 GM PACKET PO (10:03)
[2023-09-04] MEDS: morphine SR 15 MG Tablet 30 MG PO ×2 (10:03→21:29)
[2023-09-04] MEDS: DAKIN'S SOL HALF STRENGTH (=0.25%) 1 APPLIC TOPICAL ×2 (12:01→22:47)
[2023-09-04] MEDS: Insulin Glargine-YFGN 100 UNIT/ML Pen 20 UNIT SC (12:03)
[2023-09-04] MEDS: Gabapentin 100 MG Capsule PO ×2 (14:25→21:30)
[2023-09-04] MEDS: oxyCODONE 5 MG Tablet 10 MG PO (15:08)
[2023-09-04 16:27] LABS: Bedside Glucose 158 mg/dL (74-106)
[2023-09-04] MEDS: Insulin Lispro 100 UNIT/ML INSULN.PEN 8 UNIT SC (16:57)
[2023-09-04] MEDS: Insulin Lispro 100 UNIT/ML INSULN.PEN SC ×2 (16:57→21:32)
[2023-09-04] MEDS: Acetaminophen 325 MG Tablet 650 MG PO (17:05)
[2023-09-04 19:12] LABS: Bedside Glucose 111 mg/dL (74-106)
[2023-09-04 22:00] LABS: Bedside Glucose 164 mg/dL (74-106)
[2023-09-04] MEDS: 0.9% Saline Lock 10 ML Syringe IV (22:46)
[2023-09-05] VITALS (9 sets, daily range): BP systolic 135–170; BP diastolic 61–89; PULSE 109–126; RESP 16–20; TEMP 36.6–37; O2SAT 92–96
[2023-09-05] MEDS: oxyCODONE 5 MG Tablet 10 MG PO ×4 (00:39→22:37)
[2023-09-05] MEDS: HYDROmorphone 0.5 MG/0.5 ML SYRINGE IV ×2 (04:53→10:14)
[2023-09-05] MEDS: Methocarbamol 500 MG Tablet 1000 MG PO ×2 (04:59→14:53)
[2023-09-05] MEDS: Meropenem 1 GM in 0.9% Normal Saline (100mL MB+) 100 ML IV ×2 (05:00→14:18)
[2023-09-05] MEDS: Gabapentin 100 MG Capsule PO ×3 (05:00→21:20)
[2023-09-05 06:46] LABS: Bedside Glucose 151 mg/dL (74-106)
[2023-09-05] MEDS: Juven (unflavored) Packet 1 PACKET PO (08:37)
[2023-09-05] MEDS: Polyethylene Glycol 3350 17 GM PACKET PO (08:37)
[2023-09-05] MEDS: Insulin Glargine-YFGN 100 UNIT/ML Pen 20 UNIT SC (08:39)
[2023-09-05] MEDS: Insulin Lispro 100 UNIT/ML INSULN.PEN 8 UNIT SC ×2 (08:39→11:41)
[2023-09-05] MEDS: Docusate Sodium 100 MG Capsule PO (09:46)
[2023-09-05 09:49] LABS: Bedside Glucose 127 mg/dL (74-106)
--- NOTE | 2023-09-05 10:15 | CASEMGMT ---
SW sent updates to [facility] via [employer]. Frannie Dang CONVERTIBLE SOFA BEDSPRING TESTER FRONT END DRUPAL DEVELOPER
[2023-09-05] MEDS: DAKIN'S SOL HALF STRENGTH (=0.25%) 1 APPLIC TOPICAL ×2 (10:35→21:19)
[2023-09-05] MEDS: morphine SR 15 MG Tablet 30 MG PO ×2 (11:01→21:19)
[2023-09-05] MEDS: Pantoprazole Sodium 40 MG Tablet PO (11:02)
[2023-09-05 11:24] LABS: Bedside Glucose 208 mg/dL (74-106)
[2023-09-05] MEDS: Insulin Lispro 100 UNIT/ML INSULN.PEN SC ×2 (11:42→21:23)
[2023-09-05] MEDS: Glucerna Shake 120 ML LIQUID PO ×2 (11:42→21:19)
--- NOTE | 2023-09-05 12:51 | WOUNDNOTE ---
wound photo: sacrum
--- NOTE | 2023-09-05 14:24 | CASEMGMT ---
SW sent patient's PT/OT evaluations and wound RN notes to [facility] via [employer]. Frannie Dang EXECUTIVE VICE PRESIDENT AND CHIEF FINANCIAL OFFICER SHIVANI
[2023-09-05] MEDS: hydrALAZINE 20 MG/ML Vial 10 MG IV (14:34)
--- NOTE | 2023-09-05 14:36 | CASEMGMT ---
ARVIN asked Bren at [place] to start the pre-cert. Frannie Dang RESISTOR TESTING MACHINE OPERATOR OFFICE ENGINEER
--- NOTE | 2023-09-05 15:14 | CASEMGMT ---
SW did confirm with patient that his plan is to return to [place] at discharge. Frannie Dang SMOCKER SHIVANI
--- NOTE | 2023-09-05 16:06 | PCM.PN.HOSP ---
Reason for Visit Reason for Visit: Urinary retention/hematuria Subjective Subjective Mr. Zuleta is a 58-year-old white male with a history of paraplegia due to an L1 injury previously who presented to the emergency department at [facility] from local nursing facility on 08/31/2023 due to episodes of hematuria as well as blood clots noted in his chronic Campbell. This eventually became obstructed and he had no urinary output with significant onset of suprapubic pain and discomfort with bladder spasms. He is chronically anticoagulated with with Eliquis for history of bilateral pulmonary emboli. Vital signs on presentation showed temperature of 96.8, heart rate 119, blood pressure 120/79, respiratory was 18 oxygen saturations were 97% on room air. His CBC showed a significant leukocytosis with a white count of 25.5, hemoglobin 8.2 with microcytosis noted, thrombocytosis with platelet count of 689,000 and a left shift. BMP showed hyponatremia with a sodium of 132, BUN of 26 with a serum creatinine of 1.15. His urinalysis showed red cloudy urine that was not consistent with infection and a CT of his abdomen pelvis showed a small amount of perihepatic fluid with a distended urinary bladder and dense material along the dependent portion suggestive of clot versus mass. Abnormalities in the soft tissue in the middle aspect of his gluteus that are consistent with his chronic decubitus ulcers. Multiple attempts were made for Campbell catheter placement in the emergency department however they were unsuccessful and fortunately urology was able to come in and place a Campbell but is out of town. Plan initially was for transfer to [facility] however no bed was available so he was admitted to the medical floor and urology was consulted due to ongoing hematuria. His anticoagulation with Eliquis was held on admission. Continuous irrigation was initiated. He was seen by Dr. Rosado and taken for cystoscopy on 09/02/2023 at which time clot evaluation and cystogram was performed with fulguration of bleeding. The intention was to discharge him back to his facility however he developed new acute urinary retention with clotting noted in the Campbell. We did obtain a bed at [facility] however the patient elected to say and was continued to be followed by Dr. Rosado. With initiation of new bleeding repeat cystoscopy with clot evaluation and fulguration was performed and since his urine has cleared. Overall he seems to be doing much better. His urine is clear and continuous bladder irrigation was discontinued. Awaiting further input from urology Objective Data Objective Data Vital Signs: Vital Signs Temp Pulse Resp BP Pulse Ox O2 Del Method O2 Flow Rate 98.6 F 111 H 17 156/89 H 95 Room Air 2 09/05/23 15:40 09/05/23 15:45 09/05/23 15:40 09/05/23 15:45 09/05/23 15:40 09/05/23 15:40 09/05/23 02:50 Oxygen Flow Rate (L/min) 2 Oxygen Delivery Method Room Air Weight: 134.5 kg Body Mass Index (BMI) 46.5 Intake & Output: Intake and Output for Last 24 Hours 09/03/23 09/04/23 09/05/23 23:59 23:59 23:59 Intake Total 3920 / 3920 360 / 1210 1540 / 1540 Output Total 51978 / 37461 6950 / 7800 1600 / 1600 Balance -6974 / -6974 -6590 / -6590 -60 / -60 Lab / Micro Data 09/04/23 05:00 09/04/23 05:00 Labs: Laboratory Results - last 24 hr 09/04/23 12:00: POC Glucose 111 H 09/04/23 16:09: POC Glucose 158 H 09/04/23 21:31: POC Glucose 164 H 09/05/23 06:27: POC Glucose 151 H 09/05/23 08:34: POC Glucose 127 H 09/05/23 11:06: POC Glucose 208 H Micro: Microbiology 08/31/23 12:44 Urine Catheter - Catheter Urine Culture - Final Culture exhibits no growth. Assessment & Plan Assessment/Plan (1) Blood loss anemia: (2) Clot retention of urine: (3) Acute urinary retention: (4) Gross hematuria: PLAN: Plan Bladder obstruction secondary to clots with hematuria -Continue to hold Eliquis -Status post cystoscopy x 2 with clot removal and fulguration of bleeding -Baseline hemoglobin appears to run between 8 and 9 -Hemoglobin has been stable in the mid 7 range over the last 24 hours -Repeat CBC in a.m. -Harjeet hemoglobin was 5.9 and patient received 2 units of packed red blood cells -Urology is following-appreciate input -Will continue to hold Eliquis until okay to restart from a urological standpoint -Stop meropenem as urine culture is negative Acute on chronic anemia secondary to the above -Repeat CBC in a.m. -Baseline hemoglobin is between 8 and 9 -Current hemoglobin is relatively stable in the mid 7 range status post 2 units of packed red blood cells on 08/31 -Continue to monitor and transfuse for hemoglobin less than 7 -Anticipate stabilization as hematuria has appeared to resolve Hypertension -Blood pressure has consistently been elevated -Patient not on any medication previously for this -Will start Norvasc 10 mg -If blood pressures remain elevated will consider starting low-dose lisinopril with history of diabetes for renal protection -Will trend Paraplegia secondary to previous injury at L1 -Continue supportive care Chronic constipation -Continue home bowel regimen History of DVT/PE -Apixaban on hold due to the above -Restart once okay from urological standpoint DM-2 -Patient does not take any oral antihyperglycemic's -Continue home Lantus -Continue home lispro -SSI -Continue carb controlled diet and Accu-Cheks as ordered -Overall blood sugars appear to be well-controlled Chronic pain syndrome -Continue home gabapentin -Continue home oxycodone -Continue home oral morphine GERD -Continue home PPI Chronic lower extremity edema -Surya wrap's as ordered Diabetic neuropathy -Continue home gabapentin BATOOL -Continue nocturnal BiPAP Chronic unstageable pressure ulcer bilateral buttocks -Wound care is following -No signs of infection -Continue to monitor Morbid obesity -BMI is 46.5 -Recommend weight loss -Complicates treatment, prognosis, outcomes History of tobacco abuse -Encourage ongoing cessation DVT prophylaxis -SCDs -Apixaban on hold due to hematuria CODE STATUS -Full code is verified on admission Charges/Coding Visit Charges Inpatient E&M: 04659 Subs Hosp L2
--- NOTE | 2023-09-05 16:27 | CHAPLAIN ---
Type of Pastoral Visit _x__ Initial Visit ___ Follow-up Visit ___ On-call Visit ___ General Patient Visit ___ Spiritual Assessment ___ Family Conference ___ Bereavement ___ Rapid Response ___ Code Blue ___ Other (describe below) Pastoral Care Referral From _x__ Patient ___ Family ___ Nurse ___ Physician ___ Jira Administrator ___ Clinical Lab Specialist ___ Other (describe below) Sacrament/Intervention _x__ Active listening ___ Anointing ___ Mandaeism ___ Bereavement ___ Communion _x__ Migdalia exploration ___ _x__ Life review _x__ Prayer ___ Reconciliation ___ Sacrament of Sick _x_ Supportive presence ___ Wedding ___ Other (describe below) Pastoral Comments patient was asked about his health needs and his coping of this situation; pt goes into his very long story about the last 9 months of health crises; pt is emotional at times and concerned for his mother whom I promised my dad that I would take care of her; pt also was recently retired with promise of continuing job which did not happen as promised; pt has fears about not being able to walk again or care for himself; pt acknowledges that family and migdalia are what keep him going but also admits to having a need for support and help from others; pt still has hopes for his future but has worries about it all; pt welcomes the presence and prayers given for his care; a return visit would be of good support
[2023-09-05 16:32] LABS: Bedside Glucose 118 mg/dL (74-106)
[2023-09-05] MEDS: Ondansetron 4 MG/2 ML Vial IV (18:40)
[2023-09-05 22:10] LABS: Bedside Glucose 162 mg/dL (74-106)
[2023-09-06] VITALS (7 sets, daily range): BP systolic 135–168; BP diastolic 81–94; PULSE 101–120; RESP 14–18; TEMP 36.7–36.9; O2SAT 93–97; BMI 46.6
[2023-09-06] MEDS: 0.9% Saline Lock 10 ML Syringe IV ×4 (03:25→23:39)
[2023-09-06] MEDS: HYDROmorphone 0.5 MG/0.5 ML SYRINGE IV ×3 (03:25→23:38)
[2023-09-06 04:23] LABS: Absolute Lymphocyte Count 2.85 X10^3/uL (0.83-4.51); Absolute Neutrophil Count 4.6 X10^3/uL (2.0-7.7); Basophil# 0.06 X10^3/uL; Basophil% 0.6 % (0-1); Eosinophil# 0.71 X10^3/uL; Eosinophils% 7.7 % (0-5); Hemoglobin 7.9 g/dL (13.0-16.5); Lymphocyte # 2.85 X10^3/ul (0.83-4.51); Lymphocyte % 30.7 % (19-41); Mean Corp Hgb Conc 29.3 g/dL (32-36); Mean Corpuscular Hgb 23.1 pg (27.0-32.0); Mean Corpuscular Volume 78.9 fL (80-94); Mean Platelet Vol. 8.9 fl (6.2-12.0); Monocyte# 0.95 X10^3/uL; Monocyte% 10.2 % (0-10); NRBC Flagged by Analyzer 0.2 % (0-5); Neutrophil # 4.59 X10^3/uL (2.7-7.7); Neutrophil % 49.5 % (47-70); POSITIVE MORPHOLOGY YES; Platelet Count 457 K/mm3 (150-450); RBC Distribution Width CV 20.3 % (11.6-14.6); RBC Distribution Width SD 58.7 fl (35.1-43.9); Red Blood Count 3.42 M/mm3 (4.6-6.2); White Blood Count 9.3 K/mm3 (4.4-11.0)
[2023-09-06 04:28] LABS: Differential Indicated SCAN CRITERIA MET
[2023-09-06 04:54] LABS: Anion Gap 5 (5-15); BUN 11 mg/dL (7-18); BUN/Creat Ratio 24.8 RATIO (10-20); Calcium,Total 8.4 mg/dL (8.5-10.1); Chloride 102 mmol/L (98-107); Creatinine, Serum 0.44 mg/dL (0.70-1.30); EST Glomerular Filtration Rate 210 mL/min (>60); Est Glom Filt Rate - Afr Amer 254 mL/min (>60); Estimated Creatinine Clearance 244.47 ml/min; Glucose 139 mg/dL (74-106); Magnesium 1.6 mg/dL (1.6-2.6); Phosphorus 3.4 mg/dL (2.5-4.9); Potassium 3.9 mmol/L (3.5-5.1); Sodium Level 137 mmol/L (136-145)
[2023-09-06] MEDS: Gabapentin 100 MG Capsule PO ×3 (05:58→22:34)
[2023-09-06 06:28] LABS: Anisocytosis 2+; Differential Comment SCANNED
[2023-09-06] MEDS: Ondansetron 4 MG/2 ML Vial IV ×2 (06:28→23:39)
[2023-09-06 06:33] LABS: Bedside Glucose 142 mg/dL (74-106)
[2023-09-06] MEDS: amLODIPine 10 MG Tablet PO (08:21)
[2023-09-06] MEDS: Pantoprazole Sodium 40 MG Tablet PO (08:21)
[2023-09-06] MEDS: Polyethylene Glycol 3350 17 GM PACKET PO (08:22)
[2023-09-06] MEDS: Docusate Sodium 100 MG Capsule PO (08:22)
[2023-09-06] MEDS: Insulin Lispro 100 UNIT/ML INSULN.PEN 8 UNIT SC ×3 (08:22→16:43)
[2023-09-06] MEDS: Insulin Glargine-YFGN 100 UNIT/ML Pen 20 UNIT SC (08:23)
[2023-09-06] MEDS: morphine SR 15 MG Tablet 30 MG PO ×2 (08:28→22:34)
--- NOTE | 2023-09-06 08:32 | PCM.PN.GU ---
Subjective Subjective Feeling so much better. We discussed that he has a long urethra, and the bartlett catheter should essentially be at the hub or it is not likely in the correct position and could indicated bartlett trauma. He knows that he is to follow up with at discharge for further urologic management. Objective Data Objective Data Vital Signs: Vital Signs Temp Pulse Resp BP Pulse Ox O2 Del Method O2 Flow Rate 98.0 F 101 H 16 168/86 H 95 Room Air 2 09/06/23 08:17 09/06/23 08:17 09/06/23 08:17 09/06/23 08:17 09/06/23 08:17 09/06/23 08:17 09/06/23 04:18 Oxygen Flow Rate (L/min) 2 Oxygen Delivery Method Room Air Weight: 134.8 kg Body Mass Index (BMI) 46.6 Intake & Output: Intake and Output for Last 24 Hours 09/04/23 09/05/23 09/06/23 23:59 23:59 23:59 Intake Total 360 / 1210 3526.45 / 3526.45 350 / 350 Output Total 6950 / 7800 4950 / 4950 1100 / 1100 Balance -6590 / -6590 -1423.55 / -1423.55 -750 / -750 Lab / Micro Data Attestation: I reviewed the patient's lab results. 09/06/23 04:00 09/06/23 04:00 Labs: Laboratory Results - last 24 hr 09/05/23 08:34: POC Glucose 127 H 09/05/23 11:06: POC Glucose 208 H 09/05/23 16:08: POC Glucose 118 H 09/05/23 21:22: POC Glucose 162 H 09/06/23 04:00: WBC 9.3, RBC 3.42 L, Hgb 7.9 L, Hct 27.0 L, MCV 78.9 L, MCH 23.1 L, MCHC 29.3 L, RDW Std Deviation 58.7 H, RDW Coeff of Mary 20.3 H, Plt Count 457 H, MPV 8.9, Immature Gran % (Auto) 1.300 H, Neut % (Auto) 49.5, Lymph % (Auto) 30.7, [place] % (Auto) 10.2 H, Eos % (Auto) 7.7 H, Baso % (Auto) 0.6, Absolute Neuts (auto) 4.6, Absolute Lymphs (auto) 2.85, Nucleated RBC % 0.2, Differential Comment SCANNED, Anisocytosis 2+, Sodium 137, Potassium 3.9, Chloride 102, Carbon Dioxide 30.0, Anion Gap 5, BUN 11, Creatinine 0.44 L, Estim Creat Clear Calc 244.47, Est GFR (MDRD) Af Amer 254, Est GFR (MDRD) Non-Af 210, BUN/Creatinine Ratio 24.8 H, Glucose 139 H, Calcium 8.4 L, Phosphorus 3.4, Magnesium 1.6 09/06/23 06:00: POC Glucose 142 H Micro: Microbiology 08/31/23 12:44 Urine Catheter - Catheter Urine Culture - Final Culture exhibits no growth. Physical Exam Narrative abdomen is soft. urine is clear yellow with CBI turned off. Const alert, oriented x3 and no apparent distress Assessment & Plan Assessment/Plan (1) Clot retention of urine: PLAN: unhook CBI today continue bartlett catheter follow up with as outpatient subsequent bartlett catheters should maintain same position with hub essentially at the meatus or very close. call with any questions during this admission. thank you (2) Acute urinary retention: (3) Chronic indwelling Bartlett catheter:
[2023-09-06 10:11] LABS: Bedside Glucose 139 mg/dL (74-106)
[2023-09-06] MEDS: DAKIN'S SOL HALF STRENGTH (=0.25%) 1 APPLIC TOPICAL ×2 (11:33→23:39)
[2023-09-06] MEDS: Insulin Lispro 100 UNIT/ML INSULN.PEN SC (11:44)
[2023-09-06 12:11] LABS: Bedside Glucose 171 mg/dL (74-106)
[2023-09-06] MEDS: Methocarbamol 500 MG Tablet 1000 MG PO (13:26)
[2023-09-06] MEDS: oxyCODONE 5 MG Tablet 10 MG PO ×2 (13:27→19:51)
[2023-09-06] MEDS: Acetaminophen 325 MG Tablet 650 MG PO (13:27)
--- NOTE | 2023-09-06 15:53 | CASEMGMT ---
SW sent PT note to [facility]. Frannie Dang [employer]
--- NOTE | 2023-09-06 16:26 | PN.HOSP_ITS ---
Reason for Visit Reason for Visit: Urinary retention/hematuria Subjective Subjective No issues overnight. Continuous bladder irrigation has been discontinued and urine remains clear. Hemoglobin is stabilized. Patient has no complaints at this time. Objective Data Objective Data Vital Signs: Vital Signs Temp Pulse Resp BP Pulse Ox O2 Del Method O2 Flow Rate 98.3 F 117 H 16 135/94 H 94 Room Air 2 09/06/23 14:47 09/06/23 14:47 09/06/23 14:47 09/06/23 14:47 09/06/23 14:47 09/06/23 14:50 09/06/23 04:18 Oxygen Flow Rate (L/min) 2 Oxygen Delivery Method Room Air Weight: 134.8 kg Body Mass Index (BMI) 46.6 Intake & Output: Intake and Output for Last 24 Hours 09/04/23 09/05/23 09/06/23 23:59 23:59 23:59 Intake Total 360 / 1210 3526.45 / 3526.45 350 / 350 Output Total 6950 / 7800 4950 / 4950 2450 / 2450 Balance -6590 / -6590 -1423.55 / -1423.55 -2100 / -2100 Lab / Micro Data 09/06/23 04:00 09/06/23 04:00 Labs: Laboratory Results - last 24 hr 09/05/23 16:08: POC Glucose 118 H 09/05/23 21:22: POC Glucose 162 H 09/06/23 04:00: WBC 9.3, RBC 3.42 L, Hgb 7.9 L, Hct 27.0 L, MCV 78.9 L, MCH 23.1 L, MCHC 29.3 L, RDW Std Deviation 58.7 H, RDW Coeff of Mary 20.3 H, Plt Count 457 H, MPV 8.9, Immature Gran % (Auto) 1.300 H, Neut % (Auto) 49.5, Lymph % (Auto) 30.7, [place] % (Auto) 10.2 H, Eos % (Auto) 7.7 H, Baso % (Auto) 0.6, Absolute Neuts (auto) 4.6, Absolute Lymphs (auto) 2.85, Nucleated RBC % 0.2, Differential Comment SCANNED, Anisocytosis 2+, Sodium 137, Potassium 3.9, Chloride 102, Carbon Dioxide 30.0, Anion Gap 5, BUN 11, Creatinine 0.44 L, Estim Creat Clear Calc 244.47, Est GFR (MDRD) Af Amer 254, Est GFR (MDRD) Non-Af 210, BUN/Creat inine Ratio 24.8 H, Glucose 139 H, Calcium 8.4 L, Phosphorus 3.4, Magnesium 1.6 09/06/23 06:00: POC Glucose 142 H 09/06/23 08:14: POC Glucose 139 H 09/06/23 11:43: POC Glucose 171 H Micro: Microbiology 08/31/23 12:44 Urine Catheter - Catheter Urine Culture - Final Culture exhibits no growth. Physical Exam Const alert, oriented x3, no apparent distress and well nourished; Negative for average body habitus or healthy appearing Constitutional Narrative: Morbidly obese, middle-aged, white male, sitting up in bed, appears comfortable and nontoxic HEENT head/scalp atraumatic and moist oral mucous membranes Head and Scalp: normocephalic Resp normal respiratory effort, no retractions, no use of accessory muscles and clear to auscultation bilaterally Resp Narrative: Distant due to body habitus Cardio regular rate, regular rhythm, S1 normal heart sound, S2 normal heart sound, no murmurs, no rub, no gallops and no clicks GI normal to inspection, nondistended, normoactive bowel sounds, soft to palpation and non-tender Extremity Extremity Narrative: Chronic bilateral lower extremity edema due to history of paraplegia and lack of movement-1+ and daily, no cyanosis or clubbing Neuro oriented x3, CN's II-XII intact bilaterally, No moves all extremities, No no focal motor deficits and No no sensory deficits noted Neuro Narrative: Bilateral lower extremity flaccidity due to history of L1 injury Speech: speech normal Psych affect normal Psych Narrative: Very pleasant, interacts appropriately Assessment & Plan Assessment/Plan (1) Blood loss anemia: (2) Clot retention of urine: (3) Acute urinary retention: (4) Gross hematuria: PLAN: Plan Bladder obstruction secondary to clots with hematuria -Continue to hold Eliquis -Status post cystoscopy x 2 with clot removal and fulguration of bleeding -No further bleeding and continuous bladder irrigation has been discontinued -Baseline hemoglobin appears to run between 8 and 9 -Hemoglobin was stable at 7.9 today -Repeat CBC in a.m. -Harjeet hemoglobin was 5.9 and patient received 2 units of packed red blood cells -Per discussion with urology okay to restart Eliquis now however there is a note that states resume on 09/16/2023 -Will need to discuss further with patient and see if he knows why it is on hold till then -Urology has signed off and okay for discharge -Patient will need to maintain Campbell and follow-up as an outpatient with Dr. Cori Espinoza on chronic anemia secondary to the above -Repeat CBC in a.m. -Baseline hemoglobin is between 8 and 9 -Current hemoglobin is relatively stable in the mid 7 range status post 2 units of packed red blood cells on 08/31 -Continue to monitor and transfuse for hemoglobin less than 7 -Anticipate stabilization as hematuria has appeared to resolve Hypertension -Blood pressure has consistently been elevated -Patient not on any medication previously for this -For source of Norvasc received today -Blood pressures are better overall but still elevated -Will start low-dose Coreg at 3.125 twice daily -Will trend Paraplegia secondary to previous injury at L1 -Continue supportive care Chronic constipation -Continue home bowel regimen History of DVT/PE -Apixaban on hold due to the above--> okay to restart per urology but there is a note that states this is on hold until 09/15/2022 so this will need to be investigated further DM-2 -Patient does not take any oral antihyperglycemic's -Continue home Lantus -Continue home lispro -SSI -Continue carb controlled diet and Accu-Cheks as ordered -Overall blood sugars appear to be well-controlled Chronic pain syndrome -Continue home gabapentin -Continue home oxycodone -Continue home oral morphine GERD -Continue home PPI Chronic lower extremity edema -Usrya wrap's as ordered Diabetic neuropathy -Continue home gabapentin BATOOL -Continue nocturnal BiPAP Chronic unstageable pressure ulcer bilateral buttocks -Wound care is following -No signs of infection -Continue to monitor Morbid obesity -BMI is 46.5 -Recommend weight loss -Complicates treatment, prognosis, outcomes History of tobacco abuse -Encourage ongoing cessation DVT prophylaxis -SCDs -Apixaban on hold due to hematuria CODE STATUS -Full code is verified on admission Disposition: -Patient is medically ready for discharge. Plan is for return back to [place]. Awaiting pre-CERT from insurance. Charges/Coding Visit Charges Inpatient E&M: 24810 Subs Hosp L2
[2023-09-06] MEDS: Glucerna Shake 120 ML LIQUID PO ×2 (16:40→22:33)
[2023-09-06 17:19] LABS: Bedside Glucose 147 mg/dL (74-106)
[2023-09-06] MEDS: Carvedilol 3.125 MG TABLET PO (22:29)
[2023-09-06 23:20] LABS: Bedside Glucose 123 mg/dL (74-106)
[2023-09-07] MEDS: oxyCODONE 5 MG Tablet 10 MG PO ×3 (02:15→17:10)
[2023-09-07 06:00] VITALS: BMI 46.6
[2023-09-07 06:28] LABS: Bedside Glucose 134 mg/dL (74-106)
[2023-09-07] MEDS: Senna/Docusate Sodium 1 Tablet 2 TABLET PO (06:34)
[2023-09-07 06:42] LABS: Hematocrit 31.1 % (40-54); Hemoglobin 9.1 g/dL (13.0-16.5); Mean Corp Hgb Conc 29.3 g/dL (32-36); Mean Corpuscular Hgb 23.2 pg (27.0-32.0); Mean Corpuscular Volume 79.1 fL (80-94); POSITIVE MORPHOLOGY YES; Platelet Count 437 K/mm3 (150-450); RBC Distribution Width CV 20.5 % (11.6-14.6); RBC Distribution Width SD 59.6 fl (35.1-43.9); Red Blood Count 3.93 M/mm3 (4.6-6.2); White Blood Count 9.1 K/mm3 (4.4-11.0)
[2023-09-07 06:48] LABS: Scan Indicated on CBC? Y/N YES- FLAGS NOTED
[2023-09-07 07:36] VITALS: O2SAT 96
[2023-09-07 09:16] VITALS: BP 152/81; PULSE 105; RESP 16; TEMP 36.8; O2SAT 94
[2023-09-07] MEDS: Insulin Glargine-YFGN 100 UNIT/ML Pen 20 UNIT SC (09:17)
[2023-09-07] MEDS: Docusate Sodium 100 MG Capsule PO (09:18)
[2023-09-07] MEDS: Pantoprazole Sodium 40 MG Tablet PO (09:18)
[2023-09-07] MEDS: Insulin Lispro 100 UNIT/ML INSULN.PEN 8 UNIT SC ×3 (09:18→17:12)
[2023-09-07] MEDS: Polyethylene Glycol 3350 17 GM PACKET PO (09:18)
[2023-09-07] MEDS: Carvedilol 3.125 MG TABLET PO (09:18)
[2023-09-07] MEDS: amLODIPine 10 MG Tablet PO (09:19)
[2023-09-07] MEDS: Glucerna Shake 120 ML LIQUID PO ×3 (09:23→22:23)
[2023-09-07] MEDS: morphine SR 15 MG Tablet 30 MG PO ×2 (09:24→22:20)
[2023-09-07] MEDS: Acetaminophen 325 MG Tablet 650 MG PO ×2 (09:24→17:10)
[2023-09-07] MEDS: Methocarbamol 500 MG Tablet 1000 MG PO ×2 (09:24→17:10)
[2023-09-07] MEDS: Glycerin/Hypromellose/PEG400 15 ml Bottle 1 DRP EACH EYE ×2 (10:55→22:24)
[2023-09-07] MEDS: Insulin Lispro 100 UNIT/ML INSULN.PEN SC ×2 (11:01→17:12)
[2023-09-07] MEDS: DAKIN'S SOL HALF STRENGTH (=0.25%) 1 APPLIC TOPICAL ×2 (11:28→22:24)
[2023-09-07] MEDS: HYDROmorphone 0.5 MG/0.5 ML SYRINGE IV ×2 (11:28→23:31)
[2023-09-07 11:43] LABS: Bedside Glucose 193 mg/dL (74-106)
[2023-09-07] MEDS: Gabapentin 100 MG Capsule PO ×2 (13:31→22:20)
--- NOTE | 2023-09-07 14:52 | CHAPLAIN ---
Type of Pastoral Visit ___ Initial Visit _x__ Follow-up Visit ___ On-call Visit ___ General Patient Visit ___ Spiritual Assessment ___ Family Conference ___ Bereavement ___ Rapid Response ___ Code Blue ___ Other (describe below) Pastoral Care Referral From _x__ Patient ___ Family ___ Nurse ___ Physician ___ Nascar Racer ___ Pipelaying Fitter ___ Other (describe below) Sacrament/Intervention _x__ Active listening ___ Anointing ___ Samaritan ___ Bereavement ___ Communion ___ Migdalia exploration ___ ___ Life review _x__ Prayer ___ Reconciliation ___ Sacrament of Sick ___ Supportive presence ___ Wedding ___ Other (describe below) Pastoral Comments patient reports that things are in motion but still awaiting approval from the insurance company for transfer to SNF; pt is expressing hope about the possibilities and welcomes the visit and a prayer in support
[2023-09-07 15:00] VITALS: BP 153/82; PULSE 94; RESP 16; TEMP 36.7; O2SAT 95
--- NOTE | 2023-09-07 15:34 | PN.HOSP_ITS ---
Reason for Visit Reason for Visit: Urinary retention/gross hematuria Subjective Subjective No overnight issues. Blood pressure and heart rate remains slightly elevated however this looks like his chronic. I will uptitrate his beta-ya some to see if we get better control of both. Denies any complaints currently. Still awaiting pre-CERT. Remains medically stable for discharge. Objective Data Objective Data Vital Signs: Vital Signs Temp Pulse Resp BP Pulse Ox O2 Del Method O2 Flow Rate 98.2 F 105 H 16 152/81 H 94 Room Air 2 09/07/23 09:16 09/07/23 09:16 09/07/23 09:16 09/07/23 09:16 09/07/23 09:16 09/07/23 09:16 09/06/23 04:18 Oxygen Flow Rate (L/min) 2 Oxygen Delivery Method Room Air Weight: 134.8 kg Body Mass Index (BMI) 46.6 Intake & Output: Intake and Output for Last 24 Hours 09/05/23 09/06/23 09/07/23 23:59 23:59 23:59 Intake Total 3526.45 / 3526.45 850 / 1090 740 / 740 Output Total 4950 / 4950 2800 / 4100 3950 / 3950 Balance -1423.55 / -1423.55 -1950 / -3010 -3210 / -3210 Lab / Micro Data 09/07/23 03:45 09/06/23 04:00 Labs: Laboratory Results - last 24 hr 09/06/23 16:41: POC Glucose 147 H 09/06/23 22:37: POC Glucose 123 H 09/07/23 03:45: WBC 9.1, RBC 3.93 L, Hgb 9.1 L, Hct 31.1 L, MCV 79.1 L, MCH 23.2 L, MCHC 29.3 L, RDW Std Deviation 59.6 H, RDW Coeff of Mary 20.5 H, Plt Count 437, MPV 9.0, Differential Comment COMMENT 09/07/23 06:08: POC Glucose 134 H 09/07/23 11:00: POC Glucose 193 H Micro: Microbiology 08/31/23 12:44 Urine Catheter - Catheter Urine Culture - Final Culture exhibits no growth. Physical Exam Const alert, oriented x3, no apparent distress and well nourished; Negative for average body habitus or healthy appearing Constitutional Narrative: Morbidly obese, middle-aged, white male, sitting up in bed, appears comfortable and nontoxic, watching television HEENT head/scalp atraumatic and moist oral mucous membranes HEENT Narrative: Mallampati 4, no thrush Head and Scalp: normocephalic Resp normal respiratory effort, no retractions, no use of accessory muscles and clear to auscultation bilaterally Resp Narrative: Distant due to body habitus Cardio regular rhythm, S1 normal heart sound, S2 normal heart sound, no murmurs, no rub, no gallops and no clicks Cardio Narrative: Mild tachycardia GI normal to inspection, nondistended, normoactive bowel sounds, soft to palpation and non-tender Extremity Extremity Narrative: Chronic bilateral lower extremity edema due to history of paraplegia and lack of movement-1+ and daily, no cyanosis or clubbing Neuro oriented x3, No moves all extremities, No no focal motor deficits and No no sensory deficits noted Neuro Narrative: Bilateral lower extremity flaccidity due to history of L1 injury Speech: speech normal Psych affect normal Psych Narrative: Very pleasant, interacts appropriately Assessment & Plan Assessment/Plan (1) Blood loss anemia: (2) Clot retention of urine: (3) Acute urinary retention: (4) Gross hematuria: PLAN: Plan Bladder obstruction secondary to clots with hematuria -Continue to hold Eliquis -Status post cystoscopy x 2 with clot removal and fulguration of bleeding -No further bleeding and continuous bladder irrigation has been discontinued -Baseline hemoglobin appears to run between 8 and 9 -Hemoglobin was stable at 9.1 today -No reason to continue to trend hemoglobin as long as no further gross hematuria -Harjeet hemoglobin was 5.9 and patient received 2 units of packed red blood cells -Per discussion with urology okay to restart Eliquis now however there is a note that states resume on 09/16/2023 -Will need to discuss further with patient and see if he knows why it is on hold till then -Urology has signed off and okay for discharge -Patient will need to maintain Campbell and follow-up as an outpatient with Dr. Cori Espinoza on chronic anemia secondary to the above -Baseline hemoglobin is between 8 and 9 -Current hemoglobin is relatively stable in the mid 7 range status post 2 units of packed red blood cells on 08/31 -Continue to monitor and transfuse for hemoglobin less than 7 -Anticipate stabilization as hematuria has appeared to resolve Hypertension -Blood pressure has consistently been elevated -Patient not on any medication previously for this -Continue home Norvasc -Continue Coreg but increase to 12.5 mg twice daily as blood pressures are still elevated -Will trend Paraplegia secondary to previous injury at L1 -Continue supportive care Chronic constipation -Continue home bowel regimen History of DVT/PE -Apixaban on hold due to the above--> okay to restart per urology but there is a note that states this is on hold until 09/15/2022 so this will need to be invest igated further DM-2 -Patient does not take any oral antihyperglycemic's -Continue home Lantus -Continue home lispro -SSI -Continue carb controlled diet and Accu-Cheks as ordered -Overall blood sugars appear to be well-controlled Chronic pain syndrome -Continue home gabapentin -Continue home oxycodone -Continue home oral morphine GERD -Continue home PPI Chronic lower extremity edema -Surya wrap's as ordered Diabetic neuropathy -Continue home gabapentin BATOOL -Continue nocturnal BiPAP Chronic unstageable pressure ulcer bilateral buttocks -Wound care is following -No signs of infection -Continue to monitor Morbid obesity -BMI is 46.6 -Recommend weight loss -Complicates treatment, prognosis, outcomes History of tobacco abuse -Encourage ongoing cessation DVT prophylaxis -SCDs -Apixaban on hold due to hematuria CODE STATUS -Full code is verified on admission Disposition: -Patient remains medically ready for discharge since 09/06/2023. Plan is for return back to [place]. Awaiting pre-CERT from insurance. Charges/Coding Visit Charges Inpatient E&M: 85665 Subs Hosp L2
[2023-09-07] MEDS: DiphenhydrAMINE 25 MG Capsule PO ×2 (17:10→23:31)
[2023-09-07] MEDS: Carvedilol 12.5 MG Tablet PO (17:15)
[2023-09-07 17:22] LABS: Bedside Glucose 156 mg/dL (74-106)
[2023-09-07 22:39] VITALS: BP 124/64; PULSE 91; RESP 16; TEMP 37.3; O2SAT 95
[2023-09-07 22:58] LABS: Bedside Glucose 147 mg/dL (74-106)
[2023-09-07] MEDS: Ondansetron 4 MG/2 ML Vial IV (23:31)
[2023-09-07] MEDS: 0.9% Saline Lock 10 ML Syringe IV (23:32)
[2023-09-08] MEDS: oxyCODONE 5 MG Tablet 10 MG PO ×3 (00:57→18:09)
[2023-09-08 03:37] VITALS: BMI 45.9
[2023-09-08 04:03] VITALS: BP 118/74; PULSE 104; RESP 14; TEMP 36.7; O2SAT 94
[2023-09-08] MEDS: Gabapentin 100 MG Capsule PO ×3 (05:44→20:21)
[2023-09-08 07:38] VITALS: O2SAT 96
[2023-09-08] MEDS: Insulin Lispro 100 UNIT/ML INSULN.PEN 8 UNIT SC ×3 (08:05→17:07)
[2023-09-08] MEDS: Carvedilol 12.5 MG Tablet PO ×2 (08:18→17:07)
[2023-09-08 08:46] LABS: Bedside Glucose 136 mg/dL (74-106)
[2023-09-08] MEDS: morphine SR 15 MG Tablet 30 MG PO ×2 (09:34→20:21)
[2023-09-08] MEDS: Glycerin/Hypromellose/PEG400 15 ml Bottle 1 DRP EACH EYE ×2 (09:35→20:20)
[2023-09-08] MEDS: Fluticasone 0.05% 1 SPRAY NASAL.SRY NASAL (09:36)
[2023-09-08] MEDS: Polyethylene Glycol 3350 17 GM PACKET PO (09:36)
[2023-09-08] MEDS: amLODIPine 10 MG Tablet PO (09:36)
[2023-09-08] MEDS: Docusate Sodium 100 MG Capsule PO (09:36)
[2023-09-08] MEDS: Pantoprazole Sodium 40 MG Tablet PO (09:37)
[2023-09-08] MEDS: DAKIN'S SOL HALF STRENGTH (=0.25%) 1 APPLIC TOPICAL ×2 (09:39→22:05)
[2023-09-08] MEDS: Glucerna Shake 120 ML LIQUID PO ×4 (09:39→20:20)
[2023-09-08] MEDS: 0.9% Saline Lock 10 ML Syringe IV ×2 (09:41→19:48)
[2023-09-08 10:00] VITALS: BP 118/60; PULSE 98; RESP 18; TEMP 35.8; O2SAT 94
[2023-09-08] MEDS: Insulin Lispro 100 UNIT/ML INSULN.PEN SC ×2 (10:47→17:06)
[2023-09-08] MEDS: Insulin Glargine-YFGN 100 UNIT/ML Pen 20 UNIT SC (10:47)
[2023-09-08 11:10] LABS: Bedside Glucose 198 mg/dL (74-106)
[2023-09-08 16:00] VITALS: BP 116/76; PULSE 94; RESP 16; TEMP 36; O2SAT 95
--- NOTE | 2023-09-08 16:36 | PCM.PN.HOSP ---
Reason for Visit Reason for Visit: Urinary obstruction/hematuria Subjective Subjective No issues overnight. Campbell remains clear. Awaiting pre-CERT. Patient has no complaints. Objective Data Objective Data Vital Signs: Vital Signs Temp Pulse Resp BP Pulse Ox O2 Del Method O2 Flow Rate 96.5 F L 98 18 118/60 94 Room Air 2 09/08/23 10:00 09/08/23 10:00 09/08/23 10:00 09/08/23 10:00 09/08/23 10:00 09/08/23 10:00 09/06/23 04:18 Oxygen Flow Rate (L/min) 2 Oxygen Delivery Method Room Air Weight: 132.7 kg Body Mass Index (BMI) 45.9 Intake & Output: Intake and Output for Last 24 Hours 09/06/23 09/07/23 09/08/23 23:59 23:59 23:59 Intake Total 850 / 1090 740 / 980 2140 / 2140 Output Total 2800 / 4100 4600 / 5500 2300 / 2300 Balance -1950 / -3010 -3860 / -4520 -160 / -160 Lab / Micro Data 09/07/23 03:45 09/06/23 04:00 Labs: Laboratory Results - last 24 hr 09/07/23 17:05: POC Glucose 156 H 09/07/23 22:23: POC Glucose 147 H 09/08/23 08:02: POC Glucose 136 H 09/08/23 10:46: POC Glucose 198 H Micro: Microbiology 08/31/23 12:44 Urine Catheter - Catheter Urine Culture - Final Culture exhibits no growth. Physical Exam Const alert, oriented x3, no apparent distress and well nourished; Negative for average body habitus or healthy appearing Constitutional Narrative: Morbidly, white male, sitting up in bed, watching television, appears comfortable, nontoxic HEENT head/scalp atraumatic Head and Scalp: normocephalic Neuro oriented x3 Psych affect normal Psych Narrative: Eye contact is good, patient interacts appropriately Assessment & Plan Assessment/Plan (1) Chronic indwelling Campbell catheter: (2) Blood loss anemia: (3) Clot retention of urine: (4) Acute urinary retention: (5) Gross hematuria: PLAN: Plan Bladder obstruction secondary to clots with hematuria -Continue to hold Eliquis and restart on 09/16/2023 as previously indicated -Okay to restart whenever per urology -Status post cystoscopy x 2 with clot removal and fulguration of bleeding -Baseline hemoglobin appears to run between 8 and 9 -Harjeet hemoglobin was 5.9 and patient received 2 units of packed red blood cells -Urology has signed off and okay for discharge -Patient will need to maintain Campbell and follow-up as an outpatient with Dr. Cori Espinoza on chronic anemia secondary to the above -Baseline hemoglobin is between 8 and 9 and hemoglobin has appeared to stabilize -Continue to monitor and transfuse for hemoglobin less than 7 Hypertension -Blood pressure had been elevated but much better with initiation of Norvasc and Coreg -Continue home Norvasc -Continue Coreg 12.5 mg p.o. twice daily -Will trend Paraplegia secondary to previous injury at L1 -Continue supportive care Chronic constipation -Continue home bowel regimen History of DVT/PE -Apixaban on hold due to the above--> restart on 09/16/2023 per admission documentation DM-2 -Patient does not take any oral antihyperglycemic's -Continue home Lantus -Continue home lispro -SSI -Continue carb controlled diet and Accu-Cheks as ordered -Overall blood sugars appear to be well-controlled Chronic pain syndrome -Continue home gabapentin -Continue home oxycodone -Continue home oral morphine GERD -Continue home PPI Chronic lower extremity edema -Surya wrap's as ordered Diabetic neuropathy -Continue home gabapentin BATOOL -Continue nocturnal BiPAP Chronic unstageable pressure ulcer bilateral buttocks -Wound care is following -No signs of infection -Continue to monitor Morbid obesity -BMI is 46.6 -Recommend weight loss -Complicates treatment, prognosis, outcomes History of tobacco abuse -Encourage ongoing cessation DVT prophylaxis -SCDs -Apixaban on hold due to hematuria CODE STATUS -Full code is verified on admission Disposition: -Patient remains medically ready for discharge since 09/06/2023. Plan is for return back to [place]. Awaiting pre-CERT from insurance. Charges/Coding Visit Charges Inpatient E&M: 13152 Subs Hosp L1
[2023-09-08 17:28] LABS: Bedside Glucose 156 mg/dL (74-106)
[2023-09-08] MEDS: Ondansetron 4 MG/2 ML Vial IV (19:42)
[2023-09-08] MEDS: Methocarbamol 500 MG Tablet 1000 MG PO (19:42)
[2023-09-08] MEDS: DiphenhydrAMINE 25 MG Capsule PO (19:42)
[2023-09-08 20:10] VITALS: BP 148/67; PULSE 98; RESP 18; TEMP 37.7; O2SAT 98
[2023-09-08 23:33] LABS: Bedside Glucose 137 mg/dL (74-106)
[2023-09-09] MEDS: HYDROmorphone 0.5 MG/0.5 ML SYRINGE IV ×2 (01:42→15:52)
[2023-09-09 02:31] VITALS: BMI 46.4
[2023-09-09] MEDS: oxyCODONE 5 MG Tablet 10 MG PO ×3 (02:48→18:58)
[2023-09-09] MEDS: guaiFENesin 10 ML UDC (200MG/10ML) 20 ML PO ×2 (02:49→14:32)
[2023-09-09 02:55] VITALS: BP 131/59; PULSE 102; RESP 16; TEMP 37.6; O2SAT 94
[2023-09-09 04:49] LABS: Hematocrit 27.3 % (40-54); Hemoglobin 7.9 g/dL (13.0-16.5); Mean Corp Hgb Conc 28.9 g/dL (32-36); Mean Corpuscular Hgb 22.5 pg (27.0-32.0); Mean Corpuscular Volume 77.8 fL (80-94); Mean Platelet Vol. 9.1 fl (6.2-12.0); POSITIVE MORPHOLOGY YES; Platelet Count 431 K/mm3 (150-450); RBC Distribution Width CV 21.2 % (11.6-14.6); RBC Distribution Width SD 59.8 fl (35.1-43.9); Red Blood Count 3.51 M/mm3 (4.6-6.2); White Blood Count 12.1 K/mm3 (4.4-11.0)
[2023-09-09 05:46] LABS: Scan Indicated on CBC? Y/N YES- FLAGS NOTED
[2023-09-09 05:50] LABS: Differential Comment SCANNED
[2023-09-09] MEDS: Gabapentin 100 MG Capsule PO ×3 (06:29→21:05)
[2023-09-09 08:55] VITALS: BP 101/65; PULSE 104; RESP 17; TEMP 37; O2SAT 91
[2023-09-09] MEDS: Insulin Lispro 100 UNIT/ML INSULN.PEN 8 UNIT SC ×3 (09:00→17:25)
[2023-09-09] MEDS: Carvedilol 12.5 MG Tablet PO ×2 (09:03→17:24)
[2023-09-09 09:27] LABS: Bedside Glucose 142 mg/dL (74-106)
[2023-09-09] MEDS: morphine SR 15 MG Tablet 30 MG PO ×2 (10:29→21:06)
[2023-09-09] MEDS: Glycerin/Hypromellose/PEG400 15 ml Bottle 1 DRP EACH EYE ×2 (10:30→21:02)
[2023-09-09] MEDS: Insulin Glargine-YFGN 100 UNIT/ML Pen 20 UNIT SC (10:31)
[2023-09-09] MEDS: Docusate Sodium 100 MG Capsule PO (10:31)
[2023-09-09] MEDS: Fluticasone 0.05% 1 SPRAY NASAL.SRY NASAL (10:31)
[2023-09-09] MEDS: amLODIPine 10 MG Tablet PO (10:32)
[2023-09-09] MEDS: Pantoprazole Sodium 40 MG Tablet PO (10:33)
[2023-09-09] MEDS: Glucerna Shake 120 ML LIQUID PO ×3 (10:37→21:00)
[2023-09-09] MEDS: Polyethylene Glycol 3350 17 GM PACKET PO (10:38)
[2023-09-09 11:22] VITALS: BP 107/59; PULSE 94; RESP 16; TEMP 37.2; O2SAT 94
[2023-09-09 11:42] LABS: Bedside Glucose 173 mg/dL (74-106)
[2023-09-09] MEDS: Insulin Lispro 100 UNIT/ML INSULN.PEN SC ×3 (13:24→21:11)
[2023-09-09 13:45] LABS: Pathologist Review Reviewed
--- NOTE | 2023-09-09 15:37 | PCM.PN.HOSP ---
Reason for Visit Reason for Visit: Urinary obstruction/hematuria Subjective Subjective No issues overnight. Urine in Campbell remains clear with no signs of hematuria. Patient without complaints. He is just frustrated with his insurance company. Objective Data Objective Data Vital Signs: Vital Signs Temp Pulse Resp BP Pulse Ox O2 Del Method O2 Flow Rate 98.9 F 94 16 107/59 L 94 Room Air 2 09/09/23 11:22 09/09/23 11:22 09/09/23 11:22 09/09/23 11:22 09/09/23 11:22 09/09/23 14:00 09/06/23 04:18 Oxygen Flow Rate (L/min) 2 Oxygen Delivery Method Room Air Weight: 134.2 kg Body Mass Index (BMI) 46.4 Intake & Output: Intake and Output for Last 24 Hours 09/07/23 09/08/23 09/09/23 23:59 23:59 23:59 Intake Total 740 / 980 2620 / 2620 Output Total 4600 / 5500 3800 / 3800 1200 / 1200 Balance -3860 / -4520 -1180 / -1180 -1200 / -1200 Lab / Micro Data 09/09/23 04:35 09/06/23 04:00 Labs: Laboratory Results - last 24 hr 09/08/23 17:04: POC Glucose 156 H 09/08/23 23:12: POC Glucose 137 H 09/09/23 04:35: WBC 12.1 H, RBC 3.51 L, Hgb 7.9 L, Hct 27.3 L, MCV 77.8 L, MCH 22.5 L, MCHC 28.9 L, RDW Std Deviation 59.8 H, RDW Coeff of Mary 21.2 H, Plt Count 431, MPV 9.1, Differential Comment SCANNED, Diff Path Review Reviewed 09/09/23 08:57: POC Glucose 142 H 09/09/23 11:19: POC Glucose 173 H Micro: Microbiology 08/31/23 12:44 Urine Catheter - Catheter Urine Culture - Final Culture exhibits no growth. Physical Exam Const alert, oriented x3, no apparent distress and well nourished; Negative for average body habitus or healthy appearing Constitutional Narrative: Morbidly, white male, sitting up in bed, watching television, appears comfortable, nontoxic Neuro Speech: speech normal Psych affect normal Psych Narrative: Eye contact is good, patient interacts appropriately Assessment & Plan Assessment/Plan (1) Chronic indwelling Campbell catheter: (2) Blood loss anemia: (3) Clot retention of urine: (4) Acute urinary retention: (5) Gross hematuria: PLAN: Plan Bladder obstruction secondary to clots with hematuria -Continue to hold Eliquis and restart on 09/16/2023 as previously indicated -Okay to restart whenever per urology -Status post cystoscopy x 2 with clot removal and fulguration of bleeding -Baseline hemoglobin appears to run between 8 and 9--> currently 7.9--> repeat in a.m. -Harjeet hemoglobin was 5.9 and patient received 2 units of packed red blood cells -Urology has signed off and okay for discharge -Patient will need to maintain Campbell and follow-up as an outpatient with Dr. Cori Espinoza on chronic anemia secondary to the above -Baseline hemoglobin is between 8 and 9 and hemoglobin appears to be stabilizing -Continue to monitor and transfuse for hemoglobin less than 7 Hypertension -Much better blood pressure control on Coreg and Norvasc -Continue home Norvasc -Continue Coreg 12.5 mg p.o. twice daily -Will trend Paraplegia secondary to previous injury at L1 -Continue supportive care Chronic constipation -Continue home bowel regimen History of DVT/PE -Apixaban on hold due to the above--> restart on 09/16/2023 per admission documentation DM-2 -Patient does not take any oral antihyperglycemic's -Continue home Lantus -Continue home lispro -SSI -Continue carb controlled diet and Accu-Cheks as ordered -Overall blood sugars appear to be well-controlled Chronic pain syndrome -Continue home gabapentin -Continue home oxycodone -Continue home oral morphine GERD -Continue home PPI Chronic lower extremity edema -Surya wrap's as ordered Diabetic neuropathy -Continue home gabapentin BATOOL -Continue nocturnal BiPAP Chronic unstageable pressure ulcer bilateral buttocks -Wound care is following -No signs of infection -Continue to monitor Morbid obesity -BMI is 4646 -Recommend weight loss -Complicates treatment, prognosis, outcomes History of tobacco abuse -Encourage ongoing cessation DVT prophylaxis -SCDs -Apixaban on hold due to hematuria CODE STATUS -Full code is verified on admission Disposition: -Patient remains medically ready for discharge since 09/06/2023. Plan is for return back to [place]. Awaiting pre-CERT from insurance. Charges/Coding Visit Charges Inpatient E&M: 71024 Subs Hosp L1
[2023-09-09] MEDS: 0.9% Saline Lock 10 ML Syringe IV (15:52)
[2023-09-09] MEDS: DAKIN'S SOL HALF STRENGTH (=0.25%) 1 APPLIC TOPICAL ×2 (15:55→21:04)
[2023-09-09 16:13] LABS: Mucous, Urine 0 SEEN /hpf (<or=2+); Red Blood Cells-Urine 0 SEEN /hpf (0-5)
[2023-09-09 16:20] LABS: Color, Urine Yellow (Yellow); Glucose, Dipstick Normal (Normal); Ketone-Dipstick Negative (Negative); Leukocyte Esterase-Dipstick 500 /ul (Negative); Nitrite-Dipstick Positive (Negative); Occult Blood-Urine 150 /ul (Negative); Protein-Dipstick 30 mg/dl (Negative); Urine Bilirubin Dipstick Negative (Negative); Urine Clarity Cloudy (Clear); Urine Urobilinogen 1 mg/dl (Normal)
[2023-09-09 16:35] LABS: White Blood Cells >100 SEEN /hpf (0-5)
[2023-09-09 16:36] VITALS: BP 122/64; PULSE 105; RESP 16; TEMP 37.3; O2SAT 95
[2023-09-09 16:36] LABS: Bacteria 2+ /hpf (None Seen); Squamous Epithelial Cells - UA 0-5 SEEN /hpf (0-5)
[2023-09-09 16:55] LABS: Bedside Glucose 186 mg/dL (74-106)
[2023-09-09] MEDS: 0.9% Normal Saline (1000mL) 1,000 ML 100 ML IV (17:24)
[2023-09-09] MEDS: Piperacil/Tazobactam 3.375 GM in 0.9% Normal Saline (50mL MB+) 50 ML IV (18:42)
[2023-09-09 20:55] VITALS: BP 104/58; PULSE 103; RESP 18; TEMP 37.6; O2SAT 94
[2023-09-09 22:16] LABS: Bedside Glucose 175 mg/dL (74-106)
[2023-09-10] MEDS: Piperacil/Tazobactam 3.375 GM in 0.9% Normal Saline (50mL MB+) 50 ML IV ×4 (00:07→21:16)
[2023-09-10] MEDS: oxyCODONE 5 MG Tablet 10 MG PO ×3 (01:33→17:26)
[2023-09-10] MEDS: Methocarbamol 500 MG Tablet 1000 MG PO (01:33)
[2023-09-10] MEDS: guaiFENesin 10 ML UDC (200MG/10ML) 20 ML PO (01:37)
[2023-09-10] MEDS: HYDROmorphone 0.5 MG/0.5 ML SYRINGE IV ×2 (03:04→18:01)
[2023-09-10 04:04] VITALS: BP 108/57; PULSE 99; RESP 18; TEMP 36.8; O2SAT 95
[2023-09-10] MEDS: DiphenhydrAMINE 25 MG Capsule PO ×2 (04:10→17:53)
[2023-09-10 04:19] VITALS: BMI 46.4
[2023-09-10 04:22] LABS: Absolute Lymphocyte Count 1.98 X10^3/uL (0.83-4.51); Absolute Neutrophil Count 6.4 X10^3/uL (2.0-7.7); Basophil# 0.04 X10^3/uL; Basophil% 0.4 % (0-1); Eosinophil# 0.87 X10^3/uL; Eosinophils% 8.4 % (0-5); Hematocrit 25.1 % (40-54); Hemoglobin 7.3 g/dL (13.0-16.5); Lymphocyte # 1.98 X10^3/ul (0.83-4.51); Lymphocyte % 19.1 % (19-41); Mean Corp Hgb Conc 29.1 g/dL (32-36); Mean Corpuscular Hgb 22.5 pg (27.0-32.0); Mean Corpuscular Volume 77.2 fL (80-94); Monocyte# 0.96 X10^3/uL; Monocyte% 9.3 % (0-10); NRBC Flagged by Analyzer 0 % (0-5); Neutrophil # 6.37 X10^3/uL (2.7-7.7); Neutrophil % 61.5 % (47-70); POSITIVE MORPHOLOGY YES; Platelet Count 402 K/mm3 (150-450); RBC Distribution Width CV 20.9 % (11.6-14.6); RBC Distribution Width SD 58.6 fl (35.1-43.9); Red Blood Count 3.25 M/mm3 (4.6-6.2); White Blood Count 10.4 K/mm3 (4.4-11.0)
[2023-09-10 04:35] LABS: Anion Gap 4 (5-15); BUN 12 mg/dL (7-18); Chloride 100 mmol/L (98-107); EST Glomerular Filtration Rate 148 mL/min (>60); Est Glom Filt Rate - Afr Amer 179 mL/min (>60); Estimated Creatinine Clearance 178.89 ml/min; Glucose 204 mg/dL (74-106); Potassium 4.2 mmol/L (3.5-5.1); Sodium Level 134 mmol/L (136-145)
[2023-09-10 05:51] LABS: Differential Comment SCANNED; Differential Indicated SCAN CRITERIA MET; Other RBC Morphology 2+
[2023-09-10 05:52] LABS: Hypochromasia 2+; Polychromasia 2+; Stomatocyte 1+
[2023-09-10] MEDS: Gabapentin 100 MG Capsule PO ×3 (05:54→21:07)
[2023-09-10] MEDS: Ondansetron 4 MG/2 ML Vial IV (09:26)
[2023-09-10] MEDS: 0.9% Saline Lock 10 ML Syringe IV (09:27)
[2023-09-10 09:34] VITALS: BP 127/59; PULSE 94; RESP 18; TEMP 36.9; O2SAT 99
[2023-09-10] MEDS: Fluticasone 0.05% 1 SPRAY NASAL.SRY NASAL (09:40)
[2023-09-10] MEDS: Docusate Sodium 100 MG Capsule PO (09:41)
[2023-09-10] MEDS: Pantoprazole Sodium 40 MG Tablet PO (09:41)
[2023-09-10] MEDS: Carvedilol 12.5 MG Tablet PO ×2 (09:41→17:32)
[2023-09-10] MEDS: amLODIPine 10 MG Tablet PO (09:42)
[2023-09-10] MEDS: Glycerin/Hypromellose/PEG400 15 ml Bottle 1 DRP EACH EYE ×2 (09:44→21:08)
[2023-09-10 09:48] LABS: Hemoglobin 7.4 g/dL (13.0-16.5)
[2023-09-10 10:05] LABS: Bedside Glucose 141 mg/dL (74-106)
[2023-09-10] MEDS: Polyethylene Glycol 3350 17 GM PACKET PO (11:39)
[2023-09-10] MEDS: Juven (unflavored) Packet 1 PACKET PO ×2 (11:39→17:32)
[2023-09-10] MEDS: morphine SR 15 MG Tablet 30 MG PO ×2 (11:39→21:07)
[2023-09-10] MEDS: Insulin Glargine-YFGN 100 UNIT/ML Pen 20 UNIT SC (11:40)
[2023-09-10] MEDS: DAKIN'S SOL HALF STRENGTH (=0.25%) 1 APPLIC TOPICAL ×2 (11:40→21:09)
[2023-09-10] MEDS: Insulin Lispro 100 UNIT/ML INSULN.PEN 8 UNIT SC ×2 (12:07→17:30)
[2023-09-10] MEDS: Insulin Lispro 100 UNIT/ML INSULN.PEN SC ×3 (12:07→21:14)
[2023-09-10 12:36] LABS: Bedside Glucose 220 mg/dL (74-106)
--- NOTE | 2023-09-10 13:31 | PCM.PN.HOSP ---
Reason for Visit Reason for Visit: Urinary obstruction/hematuria Subjective Subjective Patient complains of little bit of nasal congestion and feels he is either getting a cold or is having some allergies. Asks if we can get something for congestion and cough with postnasal drip. Denies any other complaints at this time. Objective Data Objective Data Vital Signs: Vital Signs Temp Pulse Resp BP Pulse Ox O2 Del Method O2 Flow Rate 98.5 F 94 18 127/59 H 99 Room Air 2 09/10/23 09:34 09/10/23 09:34 09/10/23 09:34 09/10/23 09:34 09/10/23 09:34 09/10/23 09:34 09/06/23 04:18 Oxygen Flow Rate (L/min) 2 Oxygen Delivery Method Room Air Weight: 134.3 kg Body Mass Index (BMI) 46.4 Intake & Output: Intake and Output for Last 24 Hours 09/08/23 09/09/23 09/10/23 23:59 23:59 23:59 Intake Total 2620 / 2620 50 / 50 1100 / 1100 Output Total 3800 / 3800 2475 / 2475 550 / 550 Balance -1180 / -1180 -2425 / -2425 550 / 550 Lab / Micro Data 09/10/23 04:36 09/10/23 04:10 Labs: Laboratory Results - last 24 hr 09/09/23 04:35: Diff Path Review Reviewed 09/09/23 16:07: Urine Color Yellow, Urine Clarity Cloudy, Urine pH 6.0, Ur Specific [place] 1.020, Urine Protein 30 H, Urine Glucose (UA) Normal, Urine Ketones Negative, Urine Occult Blood 150 H, Urine Nitrite Positive H, Urine Bilirubin Negative, Urine Urobilinogen 1 H, Ur Leukocyte Esterase 500 H, Urine RBC 0 SEEN, Urine WBC >100 SEEN, Ur Squamous Epith Cells 0-5 SEEN, Urine Bacteria 2+, Urine Mucus 0 SEEN 09/09/23 16:32: POC Glucose 186 H 09/09/23 21:09: POC Glucose 175 H 09/10/23 04:10: WBC 10.4, RBC 3.25 L, Hgb 7.3 L, Hct 25.1 L, MCV 77.2 L, MCH 22.5 L, MCHC 29.1 L, RDW Std Deviation 58.6 H, RDW Coeff of Mary 20.9 H, Plt Count 402, MPV 9.0, Immature Gran % (Auto) 1.300 H, Neut % (Auto) 61.5, Lymph % (Auto) 19.1, [place] % (Auto) 9.3, Eos % (Auto) 8.4 H, Baso % (Auto) 0.4, Absolute Neuts (auto) 6.4, Absolute Lymphs (auto) 1.98, Nucleated RBC % 0, Differential Comment SCANNED, RBC Morphology 2+, Polychromasia 2+, Hypochromasia 2+, Stomatocytes 1+, Sodium 134 L, Potassium 4.2, Chloride 100, Carbon Dioxide 30.0, Anion Gap 4 L, BUN 12, Creatinine 0.60 L, Estim Creat Clear Calc 178.89, Est GFR (MDRD) Af Amer 179, Est GFR (MDRD) Non-Af 148, BUN/Creatinine Ratio 20.0, Glucose 204 H, Calcium 8.0 L 09/10/23 04:36: Hgb 7.4 L 09/10/23 09:20: POC Glucose 141 H 09/10/23 12:05: POC Glucose 220 H Micro: Microbiology 09/09/23 16:07 Urine Catheter - Catheter Urine Culture - Preliminary GNR lactose signal tower director Gram negative sharif 08/31/23 12:44 Urine Catheter - Catheter Urine Culture - Final Culture exhibits no growth. Physical Exam Const alert, oriented x3, no apparent distress and well nourished; Negative for average body habitus or healthy appearing Constitutional Narrative: Morbidly, white male, sitting up in bed, watching television, appears comfortable, nontoxic, nurses aide at bedside HEENT head/scalp atraumatic and moist oral mucous membranes HEENT Narrative: No thrush, Mallampati 4 Resp normal respiratory effort, no retractions, no use of accessory muscles and clear to auscultation bilaterally Resp Narrative: Distant due to body habitus Cardio regular rate, regular rhythm, S1 normal heart sound, S2 normal heart sound, no murmurs, no rub, no gallops and no clicks Cardio Narrative: Mild tachycardia GI normal to inspection, nondistended, normoactive bowel sounds, soft to palpation and non-tender GI Narrative: Campbell in place with no signs of hematuria Extremity Extremity Narrative: Chronic bilateral lower extremity edema due to history of paraplegia and lack of movement-1+ and daily, no cyanosis or clubbing Neuro oriented x3, No moves all extremities, No no focal motor deficits and No no sensory deficits noted Neuro Narrative: Bilateral lower extremity flaccidity due to history of L1 injury Speech: speech normal Psych affect normal Psych Narrative: Eye contact is good, patient interacts appropriately Assessment & Plan Assessment/Plan (1) Chronic indwelling Campbell catheter: (2) Blood loss anemia: (3) Clot retention of urine: (4) Acute urinary retention: (5) Gross hematuria: PLAN: Plan Bladder obstruction secondary to clots with hematuria -Continue to hold Eliquis and restart on 09/16/2023 as previously indicated -Patient indicates it was to be held per previous hospitalization until 09/16/2023 so we will do so -Status post cystoscopy x 2 with clot removal and fulguration of bleeding -Baseline hemoglobin appears to run between 8 and 9--> 7.9 yesterday and 7.4 today with repeat at 7.5 -No gross blood in the Campbell--> microscopic hematuria noted but improved from previous -Harjeet hemoglobin was 5.9 and patient received 2 units of packed red blood cells -Urology has signed off and okay for discharge -Patient will need to maintain Campbell and follow-up as an outpatient with Dr. Persaud Leukocytosis -This was new as of yesterday and was 12.5 resulted after previous documentation -I did check a UA as his temperatures started to trend up but he was not actually febrile -UA is consistent with infection when previously it was not on 08/31/2023 -Urine culture sent and pending -Zosyn initiated yesterday -White count has normalized and fever curve seems to be improving -Await culture and sensitivities and compared to previous as he likely has chronic colonization but any new organism should be treated especially with instrumentation and new Campbell placement -Discussed with Dr. Rosado Acute on chronic anemia secondary to the above -Baseline hemoglobin is between 8 and 9 and hemoglobin currently stabilizing in the mid 7-8 range -Continue to monitor and transfuse for hemoglobin less than 7 Hypertension -Much improved blood pressure control overall -Continue home Norvasc -Continue Coreg 12.5 mg p.o. twice daily -Will trend Paraplegia secondary to previous injury at L1 -Continue supportive care Chronic constipation -Continue home bowel regimen History of DVT/PE -Apixaban on hold due to the above--> restart on 09/16/2023 per admission documentation DM-2 -Patient does not take any oral antihyperglycemic's -Continue home Lantus -Continue home lispro -SSI -Continue carb controlled diet and Accu-Cheks as ordered -Overall blood sugars appear to be well-controlled Chronic pain syndrome -Continue home gabapentin -Continue home oxycodone -Continue home oral morphine GERD -Continue home PPI Chronic lower extremity edema -Surya wrap's as ordered Diabetic neuropathy -Continue home gabapentin BATOOL -Continue nocturnal BiPAP Chronic unstageable pressure ulcer bilateral buttocks -Wound care is following -No signs of infection -Continue to monitor Morbid obesity -BMI is 46.5 -Recommend weight loss -Complicates treatment, prognosis, outcomes History of tobacco abuse -Encourage ongoing cessation DVT prophylaxis -SCDs -Apixaban on hold due to hematuria CODE STATUS -Full code is verified on admission Disposition: -Patient remains medically ready for discharge since 09/06/2023. Plan is for return back to [place]. Awaiting pre-CERT from insurance. Charges/Coding Visit Charges Inpatient E&M: 33166 Subs Hosp L2
[2023-09-10] MEDS: Benzonatate 100 MG Capsule PO (14:25)
[2023-09-10] MEDS: guaiFENesin 1,200 MG Tablet 1200 MG PO ×2 (14:25→21:10)
[2023-09-10] MEDS: Glucerna Shake 120 ML LIQUID PO ×3 (14:26→21:10)
[2023-09-10 17:51] LABS: Bedside Glucose 217 mg/dL (74-106)
[2023-09-10 17:55] VITALS: BP 91/77; PULSE 100; RESP 14; TEMP 37.6; O2SAT 92
[2023-09-10 21:04] VITALS: BP 132/71; PULSE 104; RESP 18; TEMP 37.6; O2SAT 94
[2023-09-10 21:36] LABS: Bedside Glucose 235 mg/dL (74-106)
[2023-09-11] MEDS: oxyCODONE 5 MG Tablet 10 MG PO ×3 (00:01→16:40)
[2023-09-11] MEDS: Benzonatate 100 MG Capsule PO ×4 (00:01→21:35)
[2023-09-11] MEDS: HYDROmorphone 0.5 MG/0.5 ML SYRINGE IV ×2 (02:20→15:41)
[2023-09-11] MEDS: DiphenhydrAMINE 25 MG Capsule PO ×2 (02:20→16:41)
[2023-09-11 03:05] VITALS: O2SAT 96
[2023-09-11 03:37] VITALS: BP 116/61; PULSE 103; RESP 18; TEMP 37.4; O2SAT 96
[2023-09-11] MEDS: Gabapentin 100 MG Capsule PO ×3 (05:02→21:28)
[2023-09-11] MEDS: Piperacil/Tazobactam 3.375 GM in 0.9% Normal Saline (50mL MB+) 50 ML IV (05:02)
[2023-09-11 06:00] VITALS: BMI 48.4
[2023-09-11 06:11] LABS: Hematocrit 25.1 % (40-54); Hemoglobin 7.4 g/dL (13.0-16.5); Mean Corp Hgb Conc 29.5 g/dL (32-36); Mean Corpuscular Hgb 22.5 pg (27.0-32.0); Mean Corpuscular Volume 76.3 fL (80-94); Mean Platelet Vol. 8.8 fl (6.2-12.0); POSITIVE MORPHOLOGY YES; Platelet Count 386 K/mm3 (150-450); RBC Distribution Width CV 21.1 % (11.6-14.6); RBC Distribution Width SD 58.7 fl (35.1-43.9); Red Blood Count 3.29 M/mm3 (4.6-6.2); White Blood Count 10.8 K/mm3 (4.4-11.0)
[2023-09-11 06:49] LABS: Scan Indicated on CBC? Y/N YES- FLAGS NOTED
[2023-09-11] MEDS: Juven (unflavored) Packet 1 PACKET PO ×2 (09:29→16:41)
[2023-09-11] MEDS: Fluticasone 0.05% 1 SPRAY NASAL.SRY NASAL (09:29)
[2023-09-11] MEDS: Polyethylene Glycol 3350 17 GM PACKET PO (09:29)
[2023-09-11] MEDS: guaiFENesin 1,200 MG Tablet 1200 MG PO ×2 (09:30→21:28)
[2023-09-11] MEDS: Carvedilol 12.5 MG Tablet PO ×2 (09:31→16:41)
[2023-09-11] MEDS: Docusate Sodium 100 MG Capsule PO (09:31)
[2023-09-11] MEDS: Pantoprazole Sodium 40 MG Tablet PO (09:31)
[2023-09-11] MEDS: Glucerna Shake 120 ML LIQUID PO ×4 (09:31→21:25)
[2023-09-11] MEDS: amLODIPine 10 MG Tablet PO (09:31)
[2023-09-11] MEDS: Glycerin/Hypromellose/PEG400 15 ml Bottle 1 DRP EACH EYE ×2 (09:33→21:27)
[2023-09-11 09:36] LABS: Bedside Glucose 139 mg/dL (74-106)
[2023-09-11] MEDS: morphine SR 15 MG Tablet 30 MG PO ×2 (09:42→21:27)
[2023-09-11 09:45] VITALS: BP 114/67; PULSE 100; RESP 18; TEMP 36.9; O2SAT 92
[2023-09-11] MEDS: Insulin Glargine-YFGN 100 UNIT/ML Pen 20 UNIT SC (09:51)
[2023-09-11] MEDS: Insulin Lispro 100 UNIT/ML INSULN.PEN 8 UNIT SC ×3 (09:52→16:43)
[2023-09-11] MEDS: DAKIN'S SOL HALF STRENGTH (=0.25%) 1 APPLIC TOPICAL ×2 (09:54→21:28)
--- NOTE | 2023-09-11 11:03 | PCM.PN.HOSP ---
Reason for Visit Reason for Visit: Urinary obstruction/hematuria Subjective Subjective Patient states his congestion is much better today with the addition of the Tessalon Perles and the Mucinex. No complaints. Currently sitting up in bed watching television. Anxious to get back to the nursing facility but understands this is an insurance issue. Very pleasant. Objective Data Objective Data Vital Signs: Vital Signs Temp Pulse Resp BP Pulse Ox O2 Del Method O2 Flow Rate 98.5 F 100 18 114/67 92 Room Air 2 09/11/23 09:45 09/11/23 09:45 09/11/23 09:45 09/11/23 09:45 09/11/23 09:45 09/11/23 09:45 09/11/23 03:05 Oxygen Flow Rate (L/min) 2 Oxygen Delivery Method Room Air Weight: 140 kg Body Mass Index (BMI) 48.4 Intake & Output: Intake and Output for Last 24 Hours 09/09/23 09/10/23 09/11/23 23:59 23:59 23:59 Intake Total 50 / 50 2395 / 2395 100 / 100 Output Total 2475 / 2475 2700 / 2700 650 / 650 Balance -2425 / -2425 -305 / -305 -550 / -550 Lab / Micro Data 09/11/23 06:00 09/10/23 04:10 Labs: Laboratory Results - last 24 hr 09/10/23 12:05: POC Glucose 220 H 09/10/23 17:29: POC Glucose 217 H 09/10/23 21:14: POC Glucose 235 H 09/11/23 06:00: WBC 10.8, RBC 3.29 L, Hgb 7.4 L, Hct 25.1 L, MCV 76.3 L, MCH 22.5 L, MCHC 29.5 L, RDW Std Deviation 58.7 H, RDW Coeff of Mary 21.1 H, Plt Count 386, MPV 8.8, Differential Comment 09/11/23 09:17: POC Glucose 139 H Micro: Microbiology 09/09/23 16:07 Urine Catheter - Catheter Urine Culture - Final Klebsiella pneumoniae sp pneum Proteus mirabilis 09/10/23 03:35 Stool Stool Occult Blood (OCTAVIO) - Final 08/31/23 12:44 Urine Catheter - Catheter Urine Culture - Final Culture exhibits no growth. Physical Exam Const alert, oriented x3, no apparent distress and well nourished; Negative for average body habitus or healthy appearing Constitutional Narrative: Morbidly, white male, sitting up in bed, watching television, appears comfortable, nontoxic HEENT head/scalp atraumatic and moist oral mucous membranes HEENT Narrative: Mallampati 4, no thrush Head and Scalp: normocephalic Resp normal respiratory effort, no retractions, no use of accessory muscles and clear to auscultation bilaterally Resp Narrative: Distant due to body habitus Cardio regular rate, regular rhythm, S1 normal heart sound, S2 normal heart sound, no murmurs, no rub, no gallops and no clicks GI normal to inspection, nondistended, normoactive bowel sounds, soft to palpation and non-tender GI Narrative: Campbell in place with no signs of hematuria or clots in current Campbell bag Extremity Extremity Narrative: Chronic bilateral lower extremity edema due to history of paraplegia and lack of movement-1+ and daily, no cyanosis or clubbing Neuro oriented x3, No moves all extremities, No no focal motor deficits and No no sensory deficits noted Neuro Narrative: Bilateral lower extremity flaccidity due to history of L1 injury Speech: speech normal Psych affect normal Psych Narrative: Eye contact is good, patient interacts appropriately Assessment & Plan Assessment/Plan (1) Chronic indwelling Campbell catheter: (2) Blood loss anemia: (3) Clot retention of urine: (4) Acute urinary retention: (5) Gross hematuria: PLAN: Plan Bladder obstruction secondary to clots with hematuria -Eliquis on hold with plans to restart on 09/16/2023 -Status post cystoscopy x 2 with clot removal and fulguration of bleeding -Baseline hemoglobin appears to run between 8 and 9--> hemoglobin is stable in the mid 7 range -No gross blood in the Campbell--> microscopic hematuria noted but improved from previous -Harjeet hemoglobin was 5.9 and patient received 2 units of packed red blood cells -Urology has signed off and okay for discharge -Patient will need to maintain Campbell and follow-up as an outpatient with Dr. Persaud Acute complicated urinary tract infection-polymicrobial (Proteus/Klebsiella) -Patient was awaiting for discharge and insurance approval however his temperatures trended up and he had a new leukocytosis -UA was consistent with infection and culture is showing Proteus and Klebsiella that appear to be different from previous culture -[place] counts are 50,000 80,000 CFU's per mL however with instrumentation and his history we felt that we should be aggressive and treat this as he is extremely high risk for recurrent UTIs and given the fact he had recent instrumentation -UA is consistent with infection when previously it was not on 08/31/2023 -No need to change Campbell per discussion with urology -Sensitivities show that these are both fairly sensitive organisms and will discontinue Zosyn and transition to Omnicef 300 mg p.o. twice daily for another 12 days to complete treatment for complicated UTI Acute on chronic anemia secondary to the above -Baseline hemoglobin is between 8 and 9 and hemoglobin currently stabilizing in the mid 7 range -Give 1 dose of IV iron -Start oral iron twice daily -Will need to monitor for constipation and as needed stool softeners are available -I will hold off on scheduling at this time because I would like to avoid diarrhea as he has chronic wounds and loose stools would increase his risk for infection of these wounds -Continue to monitor and transfuse for hemoglobin less than 7 Hypertension -Much improved blood pressure control overall -Continue home Norvasc -Continue Coreg 12.5 mg p.o. twice daily -Will trend Paraplegia secondary to previous injury at L1 -Continue supportive care Chronic constipation -Continue home bowel regimen History of DVT/PE -Apixaban on hold due to the above--> restart on 09/16/2023 per admission documentation DM-2 -Patient does not take any oral antihyperglycemic's -Continue home Lantus -Continue home lispro -SSI -Continue carb controlled diet and Accu-Cheks as ordered -Overall blood sugars appear to be well-controlled Chronic pain syndrome -Continue home gabapentin -Continue home oxycodone -Continue home oral morphine GERD -Continue home PPI Chronic lower extremity edema -Surya wrap's as ordered Diabetic neuropathy -Continue home gabapentin BATOOL -Continue nocturnal BiPAP Chronic unstageable pressure ulcer bilateral buttocks -Wound care is following -No signs of infection -May need to consider diverting ostomy in future if recurrent wound infections become problematic -Continue to monitor Morbid obesity -BMI is 48.4 -Recommend weight loss -Complicates treatment, prognosis, outcomes History of tobacco abuse -Encourage ongoing cessation DVT prophylaxis -SCDs -Apixaban on hold due to hematuria CODE STATUS -Full code is verified on admission Disposition: -Patient remains medically ready for discharge since 09/06/2023. Plan is for return back to [place]. Awaiting pre-CERT from insurance. Charges/Coding Visit Charges Inpatient E&M: 25390 Subs Hosp L2
[2023-09-11] MEDS: Insulin Lispro 100 UNIT/ML INSULN.PEN SC ×3 (11:20→21:36)
[2023-09-11 11:37] LABS: Bedside Glucose 208 mg/dL (74-106)
[2023-09-11] MEDS: Sodium Ferric Gluconat/Sucrose 250 MG in 0.9% Normal Saline (250mL Bag) 250 ML 135 MG IV (12:09)
[2023-09-11] MEDS: Methocarbamol 500 MG Tablet 1000 MG PO ×2 (14:13→21:27)
[2023-09-11 16:37] VITALS: BP 128/61; PULSE 100; RESP 16; TEMP 37.2; O2SAT 95
[2023-09-11 17:20] LABS: Bedside Glucose 184 mg/dL (74-106)
[2023-09-11 21:22] VITALS: BP 103/64; PULSE 98; RESP 18; TEMP 37.1; O2SAT 92
[2023-09-11] MEDS: Iron Polysaccharide Complex 150 MG CAPSULE PO (21:27)
[2023-09-11] MEDS: Cefdinir 300 MG Capsule PO (21:27)
[2023-09-11 22:35] LABS: Bedside Glucose 212 mg/dL (74-106)
[2023-09-12] MEDS: oxyCODONE 5 MG Tablet 10 MG PO ×4 (01:38→23:51)
[2023-09-12 03:16] VITALS: BP 129/67; PULSE 96; RESP 18; TEMP 37; O2SAT 94
[2023-09-12 03:35] VITALS: O2SAT 93
[2023-09-12] MEDS: Gabapentin 100 MG Capsule PO ×3 (05:14→21:33)
[2023-09-12] MEDS: HYDROmorphone 0.5 MG/0.5 ML SYRINGE IV ×3 (05:14→22:45)
[2023-09-12] MEDS: DiphenhydrAMINE 25 MG Capsule PO ×3 (05:14→23:51)
[2023-09-12 05:30] VITALS: BMI 48.0
[2023-09-12 07:54] VITALS: BP 135/64; PULSE 90; RESP 18; TEMP 36.6; O2SAT 100
[2023-09-12] MEDS: Insulin Lispro 100 UNIT/ML INSULN.PEN 8 UNIT SC ×3 (07:56→16:16)
[2023-09-12] MEDS: Insulin Lispro 100 UNIT/ML INSULN.PEN SC ×4 (07:56→21:34)
[2023-09-12] MEDS: Carvedilol 12.5 MG Tablet PO ×2 (07:57→17:50)
[2023-09-12] MEDS: Glycerin/Hypromellose/PEG400 15 ml Bottle 1 DRP EACH EYE ×2 (07:57→21:33)
[2023-09-12] MEDS: Docusate Sodium 100 MG Capsule PO (07:58)
[2023-09-12] MEDS: Fluticasone 0.05% 1 SPRAY NASAL.SRY NASAL (07:58)
[2023-09-12] MEDS: Insulin Glargine-YFGN 100 UNIT/ML Pen 20 UNIT SC (07:58)
[2023-09-12] MEDS: Juven (unflavored) Packet 1 PACKET PO ×2 (07:59→17:50)
[2023-09-12] MEDS: Cefdinir 300 MG Capsule PO ×2 (08:00→21:34)
[2023-09-12] MEDS: Pantoprazole Sodium 40 MG Tablet PO (08:00)
[2023-09-12] MEDS: amLODIPine 10 MG Tablet PO (08:00)
[2023-09-12] MEDS: Iron Polysaccharide Complex 150 MG CAPSULE PO ×2 (08:00→21:34)
[2023-09-12] MEDS: morphine SR 15 MG Tablet 30 MG PO ×2 (08:03→21:33)
[2023-09-12] MEDS: DAKIN'S SOL HALF STRENGTH (=0.25%) 1 APPLIC TOPICAL ×2 (08:04→21:36)
--- NOTE | 2023-09-12 09:19 | CASEMGMT ---
ARVIN sent updates to [place]. Continue to wait on insurance approval. Frannie Dang [employer] [facility]
[2023-09-12 09:55] LABS: Bedside Glucose 157 mg/dL (74-106)
[2023-09-12] MEDS: 0.9% Saline Lock 10 ML Syringe IV ×2 (10:20→23:51)
[2023-09-12 11:29] LABS: Bedside Glucose 222 mg/dL (74-106)
--- NOTE | 2023-09-12 11:49 | PN.HOSP_ITS ---
Reason for Visit Reason for Visit: Diagnoses Iron deficiency anemia secondary to blood loss (chronic) (08/31/23) Gross hematuria (08/31/23) Other retention of urine (08/31/23) Presence of other specified devices (08/31/23) Subjective Subjective Patient seen had a relatively uneventful night. Awaiting transfer to long term facility pending insurance approval Objective Data Objective Data Vital Signs: Vital Signs Temp Pulse Resp BP Pulse Ox O2 Del Method O2 Flow Rate 97.8 F 90 18 135/64 H 100 CPAP 2 09/12/23 07:54 09/12/23 07:54 09/12/23 07:54 09/12/23 07:54 09/12/23 07:54 09/12/23 07:54 09/12/23 07:54 Oxygen Flow Rate (L/min) 2 Oxygen Delivery Method CPAP Weight: 138.8 kg Body Mass Index (BMI) 48.0 Intake & Output: Intake and Output for Last 24 Hours 09/10/23 09/11/23 09/12/23 23:59 23:59 23:59 Intake Total 2395 / 2395 1070 / 1070 500 / 500 Output Total 2700 / 2700 3450 / 3450 1250 / 1250 Balance -305 / -305 -2380 / -2380 -750 / -750 Lab / Micro Data 09/11/23 06:00 09/10/23 04:10 Labs: Laboratory Results - last 24 hr 09/11/23 16:46: POC Glucose 184 H 09/11/23 21:32: POC Glucose 212 H 09/12/23 07:52: POC Glucose 157 H 09/12/23 11:07: POC Glucose 222 H Micro: Microbiology 09/09/23 16:07 Urine Catheter - Catheter Urine Culture - Final Klebsiella pneumoniae sp pneum Proteus mirabilis 09/10/23 03:35 Stool Stool Occult Blood (OCTAVIO) - Final 08/31/23 12:44 Urine Catheter - Catheter Urine Culture - Final Culture exhibits no growth. Physical Exam Narrative GENERAL: Cooperative HEENT: Atraumatic; normocephalic EYES; Anicteric, Normal Conjunctiva NECK; supple, normal thyroid, RESPIRATORY: Diminished to auscultation CARDIOVASCULAR: Regular S1 S2, GI: soft, normoactive bowel sounds, : Campbell catheter in place with hematuria EXTREMITIES: edema, no clubbing, NEURO: Awake; paraplegic SKIN: Bilateral sacral decubitus PSYCH; Flat affect Assessment & Plan Assessment/Plan (1) Blood loss anemia: (2) Acute urinary retention: PLAN: Plan Patient is a 58-year-old gentleman with history of L1 injury with subsequent paraplegia who has an indwelling Campbell catheter was sent to the ED with hematuria as well as urinary retention 1. Acute urinary retention ? Secondary to hematuria. CT of the abdomen and pelvis obtained in the ED demonstrated distended urinary bladder with side density material along its dependent portion suggestive either clot versus a mass.. Continuous bladder irrigation initiated in the ED arrangement made for patient to be transferred to tertiary [facility] with absence of urology in-house. Patient however had to be kept on the MedSurg floor pending transfer ? 09/02/2023. Patient still has dylan hematuria. Will continue with CBI pending transfer to tertiary [facility]. ? 09/03/2023;Patient underwent cystoscopy with evacuation of clot and cystogram by Dr. Rosado the day prior after patient developed acute urinary retention due to clotting of his Campbell catheter. We did obtain a bed for patient to be transferred to [facility] however the patient elected to stay. Plan is for patient to undergo repeat cystoscopy and clot evaluation on 09/04/2023 -09/04/2023; Patient underwent repeat Cystoscopy, clot evacuation, fulguration of bleeding by Dr. Rosado this morning. Readmitted to PCU with continuation of CBI ? 09/12/2023; Campbell catheter remains in place plan is for patient to follow-up with Dr. Etienne as outpatient 2. Anemia Secondary to acute blood loss anemia as a result of patient hematuria. Transfused 1 unit PRBC hemoglobin still remains low at 5.9 and additional unit has been ordered ? 09/02/2023. Patient has received 3 unit PRBC transfusion following his admission hemoglobin up to 7.2 ? 09/03/2023; hemoglobin still down at 7.4. Patient has received a total of 4 unit PRBC since admission 3. Acute complicated lower urinary tract infection with Proteus and Klebsiella ? Patient managed with antibiotic therapy given his persistent fever and leukocytosis 4. Chronic constipation I did continue patient bowel regimen 5. Chronic pain syndrome ? Patient home medication regimen including oxycodone morphine methocarbamol as well as gabapentin continue 6. History of VTE ? Patient is on apixaban held given patient active bleeding?hematuria 7. Class III obesity with BMI of 44.6 ? Complicating care weight loss encouraged 8. Diabetes mellitus type II -patient's oral hypoglycemics held. Placed on long acting insulin, Accu-Cheks a.c. and at bedtime and covered with sliding scale insulin 9. Obstructive sleep apnea ? Patient is on PAP therapy at night consistent use encouraged 10.. Unstageable sacral decubitus ulcer ? Present on admission consult placed to wound care nurse 11. 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 Supportive care 12. DVT prophylaxis ? Patient was on apixaban being held given his active hematuria Time spent in the patient's overall evaluation,decision-making process, review of diagnostic data, adjustment of management, discussion with other providers, nursing nursing and ancillary staff involved in patient's care documentation, 35 minutes Charges/Coding Visit Charges Inpatient E&M: 58364 Subs Hosp L2
--- NOTE | 2023-09-12 12:59 | WOUNDNOTE ---
wound photo: sacrum
[2023-09-12 14:00] VITALS: BP 118/64; PULSE 96; RESP 20; TEMP 36.4; O2SAT 98
[2023-09-12] MEDS: Benzonatate 100 MG Capsule PO (14:09)
[2023-09-12] MEDS: Acetaminophen 325 MG Tablet 650 MG PO (16:15)
[2023-09-12] MEDS: Methocarbamol 500 MG Tablet 1000 MG PO (16:16)
[2023-09-12 17:25] LABS: Bedside Glucose 204 mg/dL (74-106)
[2023-09-12] MEDS: Polyethylene Glycol 3350 17 GM PACKET PO ×2 (17:55→17:56)
[2023-09-12 20:45] VITALS: BP 118/61; PULSE 94; RESP 18; TEMP 36.1; O2SAT 93
[2023-09-12] MEDS: guaiFENesin 1,200 MG Tablet 1200 MG PO (21:33)
[2023-09-12 22:02] LABS: Bedside Glucose 178 mg/dL (74-106)
[2023-09-12] MEDS: Ondansetron 4 MG/2 ML Vial IV (23:51)
--- NOTE | 2023-09-12 23:59 | NURSING ---
This RN changed patient's sacral wound dressing with help of another RN- Tierra and PLUG PASTER- Marcy. Dakins solution on kerlex, some 4x4 gauze, and ABD's were applied to patient's wound. Chux pad was changed and patient was repositioned to his liking. Patient given pain medication, zofran, and tylenol at his request following dressing change.
[2023-09-13] VITALS (10 sets, daily range): BP systolic 103–141; BP diastolic 51–81; PULSE 88–103; RESP 16–18; TEMP 36.2–36.8; O2SAT 92–96; BMI 47.8
[2023-09-13] MEDS: 0.9% Saline Lock 10 ML Syringe IV ×2 (02:56→12:26)
[2023-09-13] MEDS: HYDROmorphone 0.5 MG/0.5 ML SYRINGE IV (02:56)
[2023-09-13] MEDS: Methocarbamol 500 MG Tablet 1000 MG PO ×2 (02:56→16:15)
[2023-09-13] MEDS: Acetaminophen 325 MG Tablet 650 MG PO ×2 (02:57→15:07)
[2023-09-13 03:10] LABS: Absolute Lymphocyte Count 2.75 X10^3/uL (0.83-4.51); Absolute Neutrophil Count 6.7 X10^3/uL (2.0-7.7); Basophil# 0.06 X10^3/uL; Basophil% 0.5 % (0-1); Eosinophils% 6.9 % (0-5); Hematocrit 24.5 % (40-54); Lymphocyte # 2.75 X10^3/ul (0.83-4.51); Lymphocyte % 23.7 % (19-41); Mean Corp Hgb Conc 28.6 g/dL (32-36); Mean Corpuscular Hgb 22.2 pg (27.0-32.0); Mean Corpuscular Volume 77.5 fL (80-94); Monocyte# 1.07 X10^3/uL; Monocyte% 9.2 % (0-10); NRBC Flagged by Analyzer 0 % (0-5); Neutrophil # 6.73 X10^3/uL (2.7-7.7); Neutrophil % 57.9 % (47-70); POSITIVE MORPHOLOGY YES; Platelet Count 442 K/mm3 (150-450); RBC Distribution Width CV 21.1 % (11.6-14.6); RBC Distribution Width SD 58.8 fl (35.1-43.9); Red Blood Count 3.16 M/mm3 (4.6-6.2); White Blood Count 11.6 K/mm3 (4.4-11.0)
[2023-09-13 03:38] LABS: Differential Indicated SCAN CRITERIA MET
[2023-09-13 03:44] LABS: Anion Gap 6 (5-15); BUN 14 mg/dL (7-18); BUN/Creat Ratio 26.9 RATIO (10-20); Calcium,Total 8.4 mg/dL (8.5-10.1); Chloride 101 mmol/L (98-107); Creatinine, Serum 0.52 mg/dL (0.70-1.30); EST Glomerular Filtration Rate 174 mL/min (>60); Est Glom Filt Rate - Afr Amer 211 mL/min (>60); Estimated Creatinine Clearance 210.45 ml/min; Glucose 223 mg/dL (74-106); Magnesium 1.8 mg/dL (1.6-2.6); Phosphorus 3.5 mg/dL (2.5-4.9); Potassium 4.2 mmol/L (3.5-5.1); Sodium Level 136 mmol/L (136-145)
[2023-09-13] MEDS: Gabapentin 100 MG Capsule PO (06:14)
--- NOTE | 2023-09-13 08:02 | PN.HOSP_ITS ---
Reason for Visit Reason for Visit: Diagnoses Iron deficiency anemia secondary to blood loss (chronic) (08/31/23) Gross hematuria (08/31/23) Other retention of urine (08/31/23) Presence of other specified devices (08/31/23) Subjective Subjective Patient hemoglobin down to 7.0. Awaiting transfer to [facility]. An order was given for patient to be transfused 1 unit PRBC Objective Data Objective Data Vital Signs: Vital Signs Temp Pulse Resp BP Pulse Ox O2 Del Method O2 Flow Rate 97.2 F L 98 18 139/64 H 95 Bi-pap 2 09/13/23 02:45 09/13/23 02:45 09/13/23 02:45 09/13/23 02:45 09/13/23 05:05 09/13/23 05:05 09/13/23 05:05 Oxygen Flow Rate (L/min) 2 Oxygen Delivery Method Bi-pap Weight: 138.2 kg Body Mass Index (BMI) 47.8 Intake & Output: Intake and Output for Last 24 Hours 09/11/23 09/12/23 09/13/23 23:59 23:59 23:59 Intake Total 1070 / 1070 1000 / 1000 Output Total 3450 / 3450 2050 / 2050 1100 / 1100 Balance -2380 / -2380 -1050 / -1050 -1100 / -1100 Lab / Micro Data 09/13/23 03:01 09/13/23 03:01 Labs: Laboratory Results - last 24 hr 09/12/23 07:52: POC Glucose 157 H 09/12/23 11:07: POC Glucose 222 H 09/12/23 16:03: POC Glucose 204 H 09/12/23 21:32: POC Glucose 178 H 09/13/23 03:01: WBC 11.6 H, RBC 3.16 L, Hgb 7.0 L, Hct 24.5 L, MCV 77.5 L, MCH 22.2 L, MCHC 28.6 L, RDW Std Deviation 58.8 H, RDW Coeff of Mary 21.1 H, Plt Count 442, MPV 9.0, Immature Gran % (Auto) 1.800 H, Neut % (Auto) 57.9, Lymph % (Auto) 23.7, Pine % (Auto) 9.2, Eos % (Auto) 6.9 H, Baso % (Auto) 0.5, Absolute Neuts (auto) 6.7, Absolute Lymphs (auto) 2.75, Nucleated RBC % 0, Sodium 136, Potassium 4.2, Chloride 101, Carbon Dioxide 29.0, Anion Gap 6, BUN 14, Creatinine 0.52 L, Estim Creat Clear Calc 210.45, Est GFR (MDRD) Af Amer 211, Est GFR (MDRD) Non-Af 174, BUN/Creatinine Ratio 26.9 H, Glucose 223 H, Calcium 8.4 L, Phosphorus 3.5, Magnesium 1.8 Micro: Microbiology 09/09/23 16:07 Urine Catheter - Catheter Urine Culture - Final Klebsiella pneumoniae sp pneum Proteus mirabilis 09/10/23 03:35 Stool Stool Occult Blood (OCTAVIO) - Final 08/31/23 12:44 Urine Catheter - Catheter Urine Culture - Final Culture exhibits no growth. Physical Exam Narrative GENERAL: Cooperative HEENT: Atraumatic; normocephalic EYES; Anicteric, Normal Conjunctiva NECK; supple, normal thyroid, RESPIRATORY: Diminished to auscultation CARDIOVASCULAR: Regular S1 S2, GI: soft, normoactive bowel sounds, : Campbell catheter in place with hematuria EXTREMITIES: edema, no clubbing, NEURO: Awake; paraplegic SKIN: Bilateral sacral decubitus PSYCH; Flat affect Assessment & Plan Assessment/Plan (1) Blood loss anemia: (2) Acute urinary retention: PLAN: Plan Patient is a 58-year-old gentleman with history of L1 injury with subsequent paraplegia who has an indwelling Campbell catheter was sent to the ED with hematuria as well as urinary retention 1. Acute urinary retention ? Secondary to hematuria. CT of the abdomen and pelvis obtained in the ED demonstrated distended urinary bladder with side density material along its dependent portion suggestive either clot versus a mass.. Continuous bladder irrigation initiated in the ED arrangement made for patient to be transferred to tertiary care center with absence of urology in-house. Patient however had to be kept on the MedSurg floor pending transfer ? 09/02/2023. Patient still has dylan hematuria. Will continue with CBI pending transfer to tertiary care center. ? 09/03/2023;Patient underwent cystoscopy with evacuation of clot and cystogram by Dr. Rosado the day prior after patient developed acute urinary retention due to clotting of his Campbell catheter. We did obtain a bed for patient to be transferred to [facility] however the patient elected to stay. Plan is for patient to undergo repeat cystoscopy and clot evaluation on 09/04/2023 -09/04/2023; Patient underwent repeat Cystoscopy, clot evacuation, fulguration of bleeding by Dr. Rosado this morning. Readmitted to PCU with continuation of CBI ? 09/12/2023; Campbell catheter remains in place plan is for patient to follow-up with Dr. Persaud as outpatient 2. Anemia Secondary to acute blood loss anemia as a result of patient hematuria. Transfused 1 unit PRBC hemoglobin still remains low at 5.9 and additional unit has been ordered ? 09/02/2023. Patient has received 3 unit PRBC transfusion following his admission hemoglobin up to 7.2 ? 09/03/2023; hemoglobin still down at 7.4. Patient has received a total of 4 unit PRBC since admission ? 09/13/2023 hemoglobin down to 7.0 and order was given for patient to be transfused 1 unit 3. Acute complicated lower urinary tract infection with Proteus and Klebsiella ? Patient managed with antibiotic therapy given his persistent fever and leukocytosis 4. Chronic constipation I did continue patient bowel regimen 5. Chronic pain syndrome ? Patient home medication regimen including oxycodone morphine methocarbamol as well as gabapentin continue 6. History of VTE ? Patient is on apixaban held given patient active bleeding?hematuria 7. Class III obesity with BMI of 44.6 ? Complicating care weight loss encouraged 8. Diabetes mellitus type II -patient's oral hypoglycemics held. Placed on long acting insulin, Accu-Cheks a.c. and at bedtime and covered with sliding scale insulin 9. Obstructive sleep apnea ? Patient is on PAP therapy at night consistent use encouraged 10.. Unstageable sacral decubitus ulcer ? Present on admission consult placed to wound care nurse 11. 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 Supportive care 12. DVT prophylaxis ? Patient was on apixaban being held given his active hematuria Time spent in the patient's overall evaluation,decision-making process, review of diagnostic data, adjustment of management, discussion with other providers, nursing nursing and ancillary staff involved in patient's care documentation, 35 minutes Charges/Coding Visit Charges Inpatient E&M: 44876 Subs Hosp L2
[2023-09-13] MEDS: Glycerin/Hypromellose/PEG400 15 ml Bottle 1 DRP EACH EYE (08:15)
[2023-09-13] MEDS: Insulin Lispro 100 UNIT/ML INSULN.PEN 8 UNIT SC ×3 (08:15→16:06)
[2023-09-13] MEDS: Insulin Glargine-YFGN 100 UNIT/ML Pen 20 UNIT SC (08:15)
[2023-09-13] MEDS: Juven (unflavored) Packet 1 PACKET PO ×2 (08:15→16:06)
[2023-09-13] MEDS: Fluticasone 0.05% 1 SPRAY NASAL.SRY NASAL (08:16)
[2023-09-13] MEDS: Docusate Sodium 100 MG Capsule PO (08:16)
[2023-09-13] MEDS: Pantoprazole Sodium 40 MG Tablet PO (08:16)
[2023-09-13] MEDS: Cefdinir 300 MG Capsule PO (08:16)
[2023-09-13] MEDS: guaiFENesin 1,200 MG Tablet 1200 MG PO (08:16)
[2023-09-13] MEDS: amLODIPine 10 MG Tablet PO (08:16)
[2023-09-13] MEDS: Carvedilol 12.5 MG Tablet PO ×2 (08:16→16:07)
[2023-09-13] MEDS: Iron Polysaccharide Complex 150 MG CAPSULE PO (08:16)
[2023-09-13] MEDS: Polyethylene Glycol 3350 17 GM PACKET PO (08:17)
[2023-09-13] MEDS: DAKIN'S SOL HALF STRENGTH (=0.25%) 1 APPLIC TOPICAL (08:27)
[2023-09-13 09:14] LABS: Bedside Glucose 149 mg/dL (74-106)
[2023-09-13] MEDS: morphine SR 15 MG Tablet 30 MG PO (10:48)
--- NOTE | 2023-09-13 11:19 | CASEMGMT ---
Discharge Planning [facility]. SW updated. Dipika Bullard, Discharge Planning Asst.
--- NOTE | 2023-09-13 11:25 | CASEMGMT ---
ARVIN updated patient that his insurance has approved him to return to [facility]. SW notified physician, RN, and patient. Frannie PARRISH
[2023-09-13 12:20] LABS: Bedside Glucose 124 mg/dL (74-106)
--- NOTE | 2023-09-13 13:56 | CASEMGMT ---
Patient will be discharged back to [facility] today under skilled level of care. SW did complete a PASRR per [facility]'s request since patient's 7000 while patient was in the hospital. Physicians will transport patient via cot. Frannie PARRISH
--- NOTE | 2023-09-13 14:17 | TREXTCAR_ITS ---
Diet Diet Order/Speech Therapy: 09/04/23 11:35 Diet: Consistent Carb - Calorie Controlled Dietary Modifications:: Cardiac / Heart Healthy Is pt able to select menu?: Yes How many daily calories?: 2000 calorie Wound(s) coccyx: Wound Type: Pressure Injury sacrum: Wound Type: Pressure Injury Dressing Change: Dakins moistened gauze Therapies Physical Therapy: Eval and Treat Occupational Therapy: Eval and Treat Problem/Diagnosis (1) Blood loss anemia: Status: Acute Code(s): D50.0 - Iron deficiency anemia secondary to blood loss (chronic) (2) Acute urinary retention: Status: Acute Code(s): R33.8 - Other retention of urine Plan Patient is a 58-year-old gentleman with history of L1 injury with subsequent paraplegia who has an indwelling Campbell catheter was sent to the ED with hematuria as well as urinary retention 1. Acute urinary retention ? Secondary to hematuria. CT of the abdomen and pelvis obtained in the ED demonstrated distended urinary bladder with side density material along its dependent portion suggestive either clot versus a mass.. Continuous bladder irrigation initiated in the ED arrangement made for patient to be transferred to tertiary care center with absence of urology in-house. Patient however had to be kept on the MedSurg floor pending transfer ? 09/02/2023. Patient still has dylan hematuria. Will continue with CBI pending transfer to tertiary care center. ? 09/03/2023;Patient underwent cystoscopy with evacuation of clot and cystogram by Dr. Rsoado the day prior after patient developed acute urinary retention due to clotting of his Campbell catheter. We did obtain a bed for patient to be transferred to [facility] however the patient elected to stay. Plan is for patient to undergo repeat cystoscopy and clot evaluation on 09/04/2023 -09/04/2023; Patient underwent repeat Cystoscopy, clot evacuation, fulguration of bleeding by Dr. Rosado this morning. Readmitted to PCU with continuation of CBI ? 09/12/2023; Campbell catheter remains in place plan is for patient to follow-up with Dr. Persaud as outpatient 2. Anemia Secondary to acute blood loss anemia as a result of patient hematuria. Transfused 1 unit PRBC hemoglobin still remains low at 5.9 and additional unit has been ordered ? 09/02/2023. Patient has received 3 unit PRBC transfusion following his admission hemoglobin up to 7.2 ? 09/03/2023; hemoglobin still down at 7.4. Patient has received a total of 4 unit PRBC since admission ? 09/13/2023 hemoglobin down to 7.0 and order was given for patient to be transfused 1 unit 3. Acute complicated lower urinary tract infection with Proteus and Klebsiella ? Patient managed with antibiotic therapy given his persistent fever and leukocytosis 4. Chronic constipation I did continue patient bowel regimen 5. Chronic pain syndrome ? Patient home medication regimen including oxycodone morphine methocarbamol as well as gabapentin continue 6. History of VTE ? Patient is on apixaban held given patient active bleeding?hematuria 7. Class III obesity with BMI of 44.6 ? Complicating care weight loss encouraged 8. Diabetes mellitus type II -patient's oral hypoglycemics held. Placed on long acting insulin, Accu-Cheks a.c. and at bedtime and covered with sliding scale insulin 9. Obstructive sleep apnea ? Patient is on PAP therapy at night consistent use encouraged 10.. Unstageable sacral decubitus ulcer ? Present on admission consult placed to wound care nurse 11. 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 Supportive care 12. DVT prophylaxis ? Patient was on apixaban being held given his active hematuria Time spent in the patient's overall evaluation,decision-making process, review of diagnostic data, adjustment of management, discussion with other providers, nursing nursing and ancillary staff involved in patient's care documentation, 35 minutes Allergies/Procedures Done in Hospital Allergies No Known Allergies Allergy (Verified 08/31/23 11:11) Type of Care/Length of Stay Estimated LOS: More Than 30 Days Type of Care Needed: Intermediate Rehab Potential: Fair Prognosis: Fair Additional Orders/Day of Discharge Day of Discharge: 09/13/23 Dietary and Speech Recommendations Dietitian Recommendations/Changes: 2000 calorie, consistent carbohydrate/cardiac diet Will d/c 120mL Glucerna 4x daily with medpass Will continue Wiliam BID to promote wound healing. Discharge Plan Admission Admit Date/Time: 08/31/23 18:55 Primary Reason for Your Visit: Urinary retention/blood in your urine Attending Provider: Torrey Johnson Primary Care Provider: Wilma Thayer Consulting Providers: Terri Nino; Latha Rosado; Torrey Johnson; Vanessa Matias Discharge Orders/Prescriptions Prescriptions: New polysaccharide iron complex [Ferrex 150] 150 mg iron Capsule 150 mg PO BID Qty: 0 0RF sennosides-docusate sodium [Stool Softener-Stimulant Laxat] 8.6-50 mg Tablet 2 tab PO BID PRN PRN (Reason: Constipation) Qty: 0 0RF melatonin 3 mg Tablet 3 mg PO QHS PRN PRN (Reason: Insomnia) Qty: 0 0RF alum-mag hydroxide-simeth [Mag-Al Plus Extra Strength] 400-400-40 mg/5 mL Suspension 30 ml PO Q6H PRN PRN (Reason: Gastric Burning) Qty: 0 0RF insulin lispro [Humalog KwikPen Insulin] 100 unit/mL Insulin Pen See Protocol subcut ACHS Qty: 0 0RF Protocol: 3. Sliding Scale Insulin Med Dosing Condition: 150-189 mg/dl = 1 unit Condition: 190-229 mg/dl = 2 units Condition: 230-269 mg/dl = 3 units Condition: 270-309 mg/dl = 4 units Condition: 310-349 mg/dl = 5 units Condition: 350-399 mg/dl = 6 units Condition: 400-449 mg/dl = 7 units Condition: Greater than 449 call physician Protocol Text: - Use for Total Daily Dose of Insulin 37-55 units - Obsese, infected, or steroid patients MEDIUM DOSING ALGORITHIM Artificial Tears([id number]) 1-0.2-0.2 % Drops 1 drp EACH EYE BID Qty: 0 0RF guaifenesin [Mucus Relief ER] 1,200 mg Tablet Extended Release 12hr 1,200 mg PO BID Qty: 0 0RF Wiliam (with collagen) 7-7-1.5 gram Powder In Packet 1 packet PO BIDCM Qty: 0 0RF acetaminophen 325 mg Tablet 650 mg PO Q4H PRN PRN (Reason: Fever, pain 1-02/22) Qty: 0 0RF carvedilol 12.5 mg Tablet 12.5 mg PO BIDCM Qty: 0 0RF amlodipine 10 mg Tablet 10 mg PO DAILY Qty: 0 0RF benzonatate 100 mg Capsule 100 mg PO TID PRN PRN (Reason: COUGH/CONGESTION) Qty: 0 0RF diphenhydramine HCl [Banophen] 25 mg Capsule 25 mg PO TID PRN PRN (Reason: Itching) Qty: 0 0RF cefdinir 300 mg Capsule 300 mg PO Q12 Qty: 0 0RF Continued fluticasone propionate [Flonase Allergy Relief] 50 mcg/actuation spray,suspension 1 spray INTRANASAL DAILY Patient Comments: takes in once in awhile Rx Instructions: administer into each nostril pantoprazole 40 mg tablet,delayed release (DR/EC) 40 mg PO DAILY morphine 30 mg tablet extended release 30 mg PO Q12H 2 Days Qty: 4 0RF oxycodone 10 mg tablet 10 mg PO 4X/DAY PRN (Reason: pain) 2 Days Qty: 8 0RF methocarbamol 500 mg tablet 1,000 mg PO TID PRN (Reason: cramps) gabapentin 100 mg capsule 100 mg PO TID Eliquis 5 mg tablet 5 mg PO DAILY Hold Instructions: Resume on 09/16/23. insulin glargine [Lantus U-100 Insulin] 100 unit/mL solution 20 unit subcut DAILY insulin lispro 100 unit/mL solution 8 unit subcut TID Patient Comments: 8 units in the morning, 8 at noon and 8 units in the evening docusate sodium [Colace] 100 mg capsule 100 mg PO DAILY polyethylene glycol 3350 [ClearLax] 17 gram/dose powder 17 g PO DAILY Referrals / Follow Up: Artis Persaud MD [Med Staff - Active Staff] - Within 1 Week Wilma Thayer DO [Primary Care Provider] - Within 2 Weeks Disposition Disposition (needs filled in before D/C Order can be placed): [facility]
--- NOTE | 2023-09-13 14:19 | PCM.DC.SUM ---
Providers Date of Admission: 08/31/23 Primary Care Physician: Dr. 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 09/02/23 12:07 Consult: Urology Routine Consulting Provider: Ltaha Rosado Reason for Consult: urinary retention EMERGENT Consult: Yes MD Notified: Yes Date Notified: 09/02/23 Time Notified: 12:07 Method of Notification: Verbal Reason For Visit: OBSTRUCTIVE UROPATHY, HEMATURIA Diagnosis Discharge Diagnosis (1) Blood loss anemia: Status: Acute Code(s): D50.0 - Iron deficiency anemia secondary to blood loss (chronic) (2) Acute urinary retention: Status: Acute Code(s): R33.8 - Other retention of urine Plan Patient is a 58-year-old gentleman with history of L1 injury with subsequent paraplegia who has an indwelling Campbell catheter was sent to the ED with hematuria as well as urinary retention 1. Acute urinary retention ? Secondary to hematuria. CT of the abdomen and pelvis obtained in the ED demonstrated distended urinary bladder with side density material along its dependent portion suggestive either clot versus a mass.. Continuous bladder irrigation initiated in the ED arrangement made for patient to be transferred to tertiary care center with absence of urology in-house. Patient however had to be kept on the MedSurg floor pending transfer ? 09/02/2023. Patient still has dylan hematuria. Will continue with CBI pending transfer to tertiary care center. ? 09/03/2023;Patient underwent cystoscopy with evacuation of clot and cystogram by Dr. Rosado the day prior after patient developed acute urinary retention due to clotting of his Campbell catheter. We did obtain a bed for patient to be transferred to [facility] however the patient elected to stay. Plan is for patient to undergo repeat cystoscopy and clot evaluation on 09/04/2023 -09/04/2023; Patient underwent repeat Cystoscopy, clot evacuation, fulguration of bleeding by Dr. Rosado this morning. Readmitted to PCU with continuation of CBI ? 09/12/2023; Campbell catheter remains in place plan is for patient to follow-up with Dr. Persaud as outpatient 2. Anemia Secondary to acute blood loss anemia as a result of patient hematuria. Transfused 1 unit PRBC hemoglobin still remains low at 5.9 and additional unit has been ordered ? 09/02/2023. Patient has received 3 unit PRBC transfusion following his admission hemoglobin up to 7.2 ? 09/03/2023; hemoglobin still down at 7.4. Patient has received a total of 4 unit PRBC since admission ? 09/13/2023 hemoglobin down to 7.0 and order was given for patient to be transfused 1 unit 3. Acute complicated lower urinary tract infection with Proteus and Klebsiella ? Patient managed with antibiotic therapy given his persistent fever and leukocytosis 4. Chronic constipation I did continue patient bowel regimen 5. Chronic pain syndrome ? Patient home medication regimen including oxycodone morphine methocarbamol as well as gabapentin continue 6. History of VTE ? Patient is on apixaban held given patient active bleeding?hematuria 7. Class III obesity with BMI of 44.6 ? Complicating care weight loss encouraged 8. Diabetes mellitus type II -patient's oral hypoglycemics held. Placed on long acting insulin, Accu-Cheks a.c. and at bedtime and covered with sliding scale insulin 9. Obstructive sleep apnea ? Patient is on PAP therapy at night consistent use encouraged 10.. Unstageable sacral decubitus ulcer ? Present on admission consult placed to wound care nurse 11. 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 Supportive care 12. DVT prophylaxis ? Patient was on apixaban being held given his active hematuria Time spent in the patient's overall evaluation,decision-making process, review of diagnostic data, adjustment of management, discussion with other providers, nursing nursing and ancillary staff involved in patient's care documentation, 35 minutes Medications at Discharge Home Medications fluticasone propionate 50 mcg/actuation nasal spray,suspension (Flonase Allergy Relief) 1 spray intranasal DAILY shortness of breath 03/03/20 apixaban 5 mg tablet (Eliquis) 5 mg PO DAILY 07/29/23 docusate sodium 100 mg capsule (Colace) 100 mg PO DAILY 07/29/23 gabapentin 100 mg capsule 100 mg PO TID 07/29/23 insulin glargine 100 unit/mL subcutaneous solution (Lantus U-100 Insulin) 20 unit subcut DAILY diabetes mellitus type 2 07/29/23 insulin lispro 100 unit/mL subcutaneous solution 8 unit subcut TID 07/29/23 methocarbamol 500 mg tablet 1,000 mg PO TID PRN cramps 07/29/23 polyethylene glycol 3350 17 gram/dose oral powder (ClearLax) 17 g PO DAILY 07/29/23 pantoprazole 40 mg tablet,delayed release 40 mg PO DAILY 08/31/23 acetaminophen 325 mg tablet 650 mg (2 x 325 mg) PO Q4H PRN PRN Fever, pain 1-02/22 #0 tabs 09/13/23 aluminum-mag hydroxide-simethicone 400 mg-400 mg-40 mg/5 mL oral susp (Mag-Al Plus Extra Strength) 30 ml PO Q6H PRN PRN Gastric Burning #0 mL 09/13/23 amlodipine 10 mg tablet 10 mg PO DAILY #0 tabs 09/13/23 arginine 7 gram-glutam 7 gram-CaHMB 1.5 fqea-dswvp-lr-min oral pwd pkt (Wiliam (with collagen)) 1 packet PO BIDCM #0 ea 09/13/23 benzonatate 100 mg capsule 100 mg PO TID PRN PRN COUGH/CONGESTION #0 caps 09/13/23 carvedilol 12.5 mg tablet 12.5 mg PO BIDCM #0 tabs 09/13/23 cefdinir 300 mg capsule 300 mg PO Q12 #0 caps 09/13/23 diphenhydramine HCl 25 mg capsule (Banophen) 25 mg PO TID PRN PRN Itching #0 caps 09/13/23 guaifenesin 1,200 mg tablet, extended release 12 hr (Mucus Relief ER) 1,200 mg PO BID #0 tabs 09/13/23 insulin lispro 100 unit/mL subcutaneous pen (Humalog KwikPen (U-100) Insulin) See Protocol subcut ACHS #0 mL 09/13/23 melatonin 3 mg tablet 3 mg PO QHS PRN PRN Insomnia #0 tabs 09/13/23 morphine 30 mg tablet,extended release 30 mg PO Q12H 2 days #4 tabs 09/13/23 oxycodone 10 mg tablet 10 mg PO 4X/DAY PRN pain 2 days #8 tabs 09/13/23 peg [id number] 1 %-0.2 %-0.2 % eye drops (Artificial Tears ([id number])) 1 drp EACH EYE BID #0 mL 09/13/23 polysaccharide iron complex 150 mg iron capsule (Ferrex) 150 mg PO BID #0 caps 09/13/23 sennosides 8.6 mg-docusate sodium 50 mg tablet (Stool Softener-Stimulant Laxative) 2 tab PO BID PRN PRN Constipation #0 tabs 09/13/23 Physical Exam Narrative GENERAL: Cooperative HEENT: Atraumatic; normocephalic EYES; Anicteric, Normal Conjunctiva NECK; supple, normal thyroid, RESPIRATORY: Diminished to auscultation CARDIOVASCULAR: Regular S1 S2, GI: soft, normoactive bowel sounds, : Campbell catheter in place with hematuria EXTREMITIES: edema, no clubbing, NEURO: Awake; paraplegic SKIN: Bilateral sacral decubitus PSYCH; Flat affect Weight / BMI Weight Weight: 138.2 kg Body Mass Index (BMI) 47.8 ABG / Lab / Microbiology Data 09/13/23 03:01 09/13/23 03:01 Laboratory: Laboratory Results - last 24 hr 09/12/23 16:03: POC Glucose 204 H 09/12/23 21:32: POC Glucose 178 H 09/13/23 03:01: WBC 11.6 H, RBC 3.16 L, Hgb 7.0 L, Hct 24.5 L, MCV 77.5 L, MCH 22.2 L, MCHC 28.6 L, RDW Std Deviation 58.8 H, RDW Coeff of Mary 21.1 H, Plt Count 442, MPV 9.0, Immature Gran % (Auto) 1.800 H, Neut % (Auto) 57.9, Lymph % (Auto) 23.7, [place] % (Auto) 9.2, Eos % (Auto) 6.9 H, Baso % (Auto) 0.5, Absolute Neuts (auto) 6.7, Absolute Lymphs (auto) 2.75, Nucleated RBC % 0, Sodium 136, Potassium 4.2, Chloride 101, Carbon Dioxide 29.0, Anion Gap 6, BUN 14, Creatinine 0.52 L, Estim Creat Clear Calc 210.45, Est GFR (MDRD) Af Amer 211, Est GFR (MDRD) Non-Af 174, BUN/Creatinine Ratio 26.9 H, Glucose 223 H, Calcium 8.4 L, Phosphorus 3.5, Magnesium 1.8 09/13/23 08:11: POC Glucose 149 H 09/13/23 09:00: Blood Type A POSITIVE, Antibody Screen POSITIVE, Antibody Identification ANTI-E, Crossmatch See Detail 09/13/23 11:12: POC Glucose 124 H Microbiology: Microbiology 09/13/23 11:41 Nasal Secretion SARS-CoV-2 Antigen (Rapid) - Final 09/09/23 16:07 Urine Catheter - Catheter Urine Culture - Final Klebsiella pneumoniae sp pneum Proteus mirabilis 09/10/23 03:35 Stool Stool Occult Blood (OCTAVIO) - Final 08/31/23 12:44 Urine Catheter - Catheter Urine Culture - Final Culture exhibits no growth. D/C Instructions Discharge Diet: 1800 Calorie Control Diet Discharge Activity: Return to Normal Activity Call your doctor if you observe: Fever of 101 or Higher, Shortness of breath, Fainting spells and Chest pain Meaningful Use Info Meaningful Use Meaningful Use Diagnoses (Choose all that apply): None applicable Ischemic Stroke Statin Dosing Therapy Reference: STATIN DOSE THERAPY REFERENCE: * Patients > 75 years receive moderate or high dose statin therapy. * Patients 75 years or YOUNGER should receive HIGH intensity statin dose unless contraindicated. You will be required to document reason for non-treatment if statin daily dose does not meet guidelines. HIGH DOSE STATIN THERAPY DAILY Atorvastatin > than or = to 40 mg Rosuvastatin > than or = to 20 mg Amlodipine + Atorvastatin > than or = to 2.5/40 mg Ezetimibe + Simvastatin 10/80 mg Simvastatin 80mg Discharge Plan Admission Admit Date/Time: 08/31/23 18:55 Primary Reason for Your Visit: Urinary retention/blood in your urine Attending Provider: Torrey Johnson Primary Care Provider: Wilma Thayer Consulting Providers: Terri Nino; Latha Rosado; Torrey Johnson; Vanessa Matias Discharge Orders/Prescriptions Prescriptions: New polysaccharide iron complex [Ferrex 150] 150 mg iron Capsule 150 mg PO BID Qty: 0 0RF sennosides-docusate sodium [Stool Softener-Stimulant Laxat] 8.6-50 mg Tablet 2 tab PO BID PRN PRN (Reason: Constipation) Qty: 0 0RF melatonin 3 mg Tablet 3 mg PO QHS PRN PRN (Reason: Insomnia) Qty: 0 0RF alum-mag hydroxide-simeth [Mag-Al Plus Extra Strength] 400-400-40 mg/5 mL Suspension 30 ml PO Q6H PRN PRN (Reason: Gastric Burning) Qty: 0 0RF insulin lispro [Humalog KwikPen Insulin] 100 unit/mL Insulin Pen See Protocol subcut ACHS Qty: 0 0RF Protocol: 3. Sliding Scale Insulin Med Dosing Condition: 150-189 mg/dl = 1 unit Condition: 190-229 mg/dl = 2 units Condition: 230-269 mg/dl = 3 units Condition: 270-309 mg/dl = 4 units Condition: 310-349 mg/dl = 5 units Condition: 350-399 mg/dl = 6 units Condition: 400-449 mg/dl = 7 units Condition: Greater than 449 call physician Protocol Text: - Use for Total Daily Dose of Insulin 37-55 units - Obsese, infected, or steroid patients MEDIUM DOSING ALGORITHIM Artificial Tears(qr-[id number]) 1-0.2-0.2 % Drops 1 drp EACH EYE BID Qty: 0 0RF guaifenesin [Mucus Relief ER] 1,200 mg Tablet Extended Release 12hr 1,200 mg PO BID Qty: 0 0RF Wiliam (with collagen) 7-7-1.5 gram Powder In Packet 1 packet PO BIDCM Qty: 0 0RF acetaminophen 325 mg Tablet 650 mg PO Q4H PRN PRN (Reason: Fever, pain 1-02/22) Qty: 0 0RF carvedilol 12.5 mg Tablet 12.5 mg PO BIDCM Qty: 0 0RF amlodipine 10 mg Tablet 10 mg PO DAILY Qty: 0 0RF benzonatate 100 mg Capsule 100 mg PO TID PRN PRN (Reason: COUGH/CONGESTION) Qty: 0 0RF diphenhydramine HCl [Banophen] 25 mg Capsule 25 mg PO TID PRN PRN (Reason: Itching) Qty: 0 0RF cefdinir 300 mg Capsule 300 mg PO Q12 Qty: 0 0RF Continued fluticasone propionate [Flonase Allergy Relief] 50 mcg/actuation spray,suspension 1 spray INTRANASAL DAILY Patient Comments: takes in once in awhile Rx Instructions: administer into each nostril pantoprazole 40 mg tablet,delayed release (DR/EC) 40 mg PO DAILY morphine 30 mg tablet extended release 30 mg PO Q12H 2 Days Qty: 4 0RF oxycodone 10 mg tablet 10 mg PO 4X/DAY PRN (Reason: pain) 2 Days Qty: 8 0RF methocarbamol 500 mg tablet 1,000 mg PO TID PRN (Reason: cramps) gabapentin 100 mg capsule 100 mg PO TID Eliquis 5 mg tablet 5 mg PO DAILY Hold Instructions: Resume on 09/16/23. insulin glargine [Lantus U-100 Insulin] 100 unit/mL solution 20 unit subcut DAILY insulin lispro 100 unit/mL solution 8 unit subcut TID Patient Comments: 8 units in the morning, 8 at noon and 8 units in the evening docusate sodium [Colace] 100 mg capsule 100 mg PO DAILY polyethylene glycol 3350 [ClearLax] 17 gram/dose powder 17 g PO DAILY Referrals / Follow Up: Artis Persaud MD [Med Staff - Active Staff] - Within 1 Week Wilma Thayer DO [Primary Care Provider] - Within 2 Weeks Disposition Disposition (needs filled in before D/C Order can be placed): [facility] Charges/Coding Visit Charges Inpatient E&M: 23531 Disch Hosp >30min
--- NOTE | 2023-09-13 14:27 | CASEMGMT ---
Discharge Planning Discharge orders, signed med list, covid results, and transport time sent to [facility] via [facility]. Physicians will transport patient by cot at 5p. Nursing, SW, patient, and his sister updated. Dipika Bullard, Discharge Planning Asst.
[2023-09-13] MEDS: oxyCODONE 5 MG Tablet 10 MG PO (15:06)
--- NOTE | 2023-09-13 15:31 | PHA.DC_ITS ---
Pharmacy [place] Med Reconciliation Pharmacy Service has performed discharge medication reconciliation for this patient. The patient's discharge medication list was reviewed for discrepancies and discrepancies were resolved. Medications at Discharge Home Medications fluticasone propionate 50 mcg/actuation nasal spray,suspension (Flonase Allergy Relief) 1 spray intranasal DAILY shortness of breath 03/03/20 apixaban 5 mg tablet (Eliquis) 5 mg PO DAILY 07/29/23 docusate sodium 100 mg capsule (Colace) 100 mg PO DAILY 07/29/23 gabapentin 100 mg capsule 100 mg PO TID 07/29/23 insulin glargine 100 unit/mL subcutaneous solution (Lantus U-100 Insulin) 20 unit subcut DAILY diabetes mellitus type 2 07/29/23 insulin lispro 100 unit/mL subcutaneous solution 8 unit subcut TID 07/29/23 methocarbamol 500 mg tablet 1,000 mg PO TID PRN cramps 07/29/23 polyethylene glycol 3350 17 gram/dose oral powder (ClearLax) 17 g PO DAILY 07/29/23 pantoprazole 40 mg tablet,delayed release 40 mg PO DAILY 08/31/23 acetaminophen 325 mg tablet 650 mg (2 x 325 mg) PO Q4H PRN PRN Fever, pain 1- 02/22 #0 tabs 09/13/23 aluminum-mag hydroxide-simethicone 400 mg-400 mg-40 mg/5 mL oral susp (Mag-Al Plus Extra Strength) 30 ml PO Q6H PRN PRN Gastric Burning #0 mL 09/13/23 amlodipine 10 mg tablet 10 mg PO DAILY #0 tabs 09/13/23 arginine 7 gram-glutam 7 gram-CaHMB 1.5 rnxy-qnopi-nl-min oral pwd pkt (Wiliam (with collagen)) 1 packet PO BIDCM #0 ea 09/13/23 benzonatate 100 mg capsule 100 mg PO TID PRN PRN COUGH/CONGESTION #0 caps 09/13/23 carvedilol 12.5 mg tablet 12.5 mg PO BIDCM #0 tabs 09/13/23 cefdinir 300 mg capsule 300 mg PO Q12 #0 caps 09/13/23 diphenhydramine HCl 25 mg capsule (Banophen) 25 mg PO TID PRN PRN Itching #0 caps 09/13/23 guaifenesin 1,200 mg tablet, extended release 12 hr (Mucus Relief ER) 1,200 mg PO BID #0 tabs 09/13/23 insulin lispro 100 unit/mL subcutaneous pen (Humalog KwikPen (U-100) Insulin) See Protocol subcut ACHS #0 mL 09/13/23 melatonin 3 mg tablet 3 mg PO QHS PRN PRN Insomnia #0 tabs 09/13/23 morphine 30 mg tablet,extended release 30 mg PO Q12H 2 days #4 tabs 09/13/23 oxycodone 10 mg tablet 10 mg PO 4X/DAY PRN pain 2 days #8 tabs 09/13/23 peg [id number] 1 %-0.2 %-0.2 % eye drops (Artificial Tears ([id number])) 1 drp EACH EYE BID #0 mL 09/13/23 polysaccharide iron complex 150 mg iron capsule (Ferrex) 150 mg PO BID #0 caps 09/13/23 sennosides 8.6 mg-docusate sodium 50 mg tablet (Stool Softener-Stimulant Laxative) 2 tab PO BID PRN PRN Constipation #0 tabs 09/13/23
[2023-09-13] MEDS: Insulin Lispro 100 UNIT/ML INSULN.PEN SC (16:06)
[2023-09-13] MEDS: Benzonatate 100 MG Capsule PO (16:15)
--- NOTE | 2023-09-13 16:25 | NURSING ---
Report given to Rupal mendez at [facility]. Expected worm picker time is 1700.
[2023-09-13 16:57] LABS: Bedside Glucose 162 mg/dL (74-106)
== END 2023-09-13 17:38 | disposition skilled nursing facility (03) | DRG 663 ==
LOC: ED 16:56 → PCU 19:02
PROVIDERS: Family Medicine; Internal Medicine; Urology; Admitting Provider Family Medicine; Emergency Provider Emergency Medicine; PCP Family Medicine; Visit Provider Internal Medicine
PROC: 0TBB8ZX Excision of Bladder, Via Natural or Artificial Opening Endoscopic, Diagnostic (ICD-10-PCS; principal; 2023-09-02 14:00)
DX: R31.0 Gross hematuria (principal); G82.20 Paraplegia, unspecified; D62 Acute posthemorrhagic anemia; Z68.41 Body mass index [BMI] 40.0-44.9, adult; L89.310 Pressure ulcer of right buttock, unstageable; L89.139 Pressure ulcer of right lower back, unspecified stage; N13.8 Other obstructive and reflux uropathy; L89.320 Pressure ulcer of left buttock, unstageable; L89.149 Pressure ulcer of left lower back, unspecified stage; E11.40 Type 2 diabetes mellitus with diabetic neuropathy, unspecified; L89.150 Pressure ulcer of sacral region, unstageable; E66.01 Morbid (severe) obesity due to excess calories; I10 Essential (primary) hypertension; G47.33 Obstructive sleep apnea (adult) (pediatric); K21.9 Gastro-esophageal reflux disease without esophagitis; K59.09 Other constipation; N32.0 Bladder-neck obstruction; Z87.891 Personal history of nicotine dependence; G89.4 Chronic pain syndrome; Z79.891 Long term (current) use of opiate analgesic; N32.89 Other specified disorders of bladder; R53.81 Other malaise; Z79.01 Long term (current) use of anticoagulants; B96.1 Klebsiella pneumoniae [K. pneumoniae] as the cause of diseases classified elsewhere; B96.4 Proteus (mirabilis) (morganii) as the cause of diseases classified elsewhere; Z86.718 Personal history of other venous thrombosis and embolism; Z86.711 Personal history of pulmonary embolism; N39.0 Urinary tract infection, site not specified; Z97.8 Presence of other specified devices; R33.8 Other retention of urine
CPT/HCPCS: 36415; 36592; 51702; 74176; 76000; 80048; 80053; 81001; 82274; 82962; 83735; 84100; 85014; 85018; 85025; 85027; 86850; 86870; 86900; 86901; 86902; 86920; 86921; 86922; 87077; 87086; 87088; 87186; 87426; 93005; 94002; 94003; 94668; 97110; 97162; 97165; 97530; 97535; 97803; 99284; J2185; J7030; J7040; J7050; P9016; A4216; J2405; J2916

== ENCOUNTER → 2023-09-26 | Outpatient (REF) | payer MEDICARE, SELFPAY ==
[2023-09-26 08:33] LABS: Absolute Lymphocyte Count 3.09 X10^3/uL (0.83-4.51); Absolute Neutrophil Count 4.3 X10^3/uL (2.0-7.7); Basophil# 0.08 X10^3/uL; Basophil% 0.9 % (0-1); Eosinophil# 0.75 X10^3/uL; Eosinophils% 8.2 % (0-5); Hematocrit 31.5 % (40-54); Hemoglobin 8.7 g/dL (13.0-16.5); Lymphocyte # 3.09 X10^3/ul (0.83-4.51); Mean Corp Hgb Conc 27.6 g/dL (32-36); Mean Corpuscular Volume 79.7 fL (80-94); Mean Platelet Vol. 9.3 fl (6.2-12.0); Monocyte# 0.82 X10^3/uL; NRBC Flagged by Analyzer 0 % (0-5); Neutrophil % 47.2 % (47-70); POSITIVE MORPHOLOGY YES; Platelet Count 458 K/mm3 (150-450); RBC Distribution Width SD 60.5 fl (35.1-43.9); Red Blood Count 3.95 M/mm3 (4.6-6.2); White Blood Count 9.1 K/mm3 (4.4-11.0)
[2023-09-26 08:36] LABS: Differential Indicated SCAN CRITERIA MET
[2023-09-26 08:51] LABS: Anion Gap 5 (5-15); BUN 15 mg/dL (7-18); BUN/Creat Ratio 24.5 RATIO (10-20); Calcium,Total 8.6 mg/dL (8.5-10.1); Chloride 103 mmol/L (98-107); Creatinine, Serum 0.61 mg/dL (0.70-1.30); EST Glomerular Filtration Rate 145 mL/min (>60); Est Glom Filt Rate - Afr Amer 175 mL/min (>60); Glucose 195 mg/dL (74-106); Potassium 3.7 mmol/L (3.5-5.1); Sodium Level 137 mmol/L (136-145)
[2023-09-26 10:57] LABS: Anisocytosis 1+
== END ==
LOC: OLS.WHLTCC 04:00
PROVIDERS: PCP Family Medicine; Referring Provider Internal Medicine; Visit Provider Internal Medicine
DX: E11.9 Type 2 diabetes mellitus without complications (principal); R33.9 Retention of urine, unspecified; A41.89 Other specified sepsis
CPT/HCPCS: 36415; 80048; 85025

== ENCOUNTER → 2023-10-03 | Outpatient (REF) | payer OTHER, SELFPAY ==
[2023-10-03 09:19] LABS: Absolute Lymphocyte Count 2.42 X10^3/uL (0.83-4.51); Absolute Neutrophil Count 4.1 X10^3/uL (2.0-7.7); Basophil# 0.04 X10^3/uL; Basophil% 0.5 % (0-1); Eosinophil# 0.65 X10^3/uL; Eosinophils% 8.2 % (0-5); Hematocrit 30.6 % (40-54); Hemoglobin 8.5 g/dL (13.0-16.5); Lymphocyte # 2.42 X10^3/ul (0.83-4.51); Lymphocyte % 30.4 % (19-41); Mean Corp Hgb Conc 27.8 g/dL (32-36); Mean Corpuscular Hgb 22.1 pg (27.0-32.0); Mean Corpuscular Volume 79.7 fL (80-94); Mean Platelet Vol. 9.6 fl (6.2-12.0); Monocyte# 0.67 X10^3/uL; Monocyte% 8.4 % (0-10); NRBC Flagged by Analyzer 0 % (0-5); Neutrophil # 4.12 X10^3/uL (2.7-7.7); Neutrophil % 51.9 % (47-70); POSITIVE MORPHOLOGY YES; Platelet Count 347 K/mm3 (150-450); RBC Distribution Width CV 20.3 % (11.6-14.6); RBC Distribution Width SD 58.8 fl (35.1-43.9); Red Blood Count 3.84 M/mm3 (4.6-6.2)
[2023-10-03 09:22] LABS: Differential Indicated SCAN CRITERIA MET
[2023-10-03 09:36] LABS: Anion Gap 7 (5-15); BUN 13 mg/dL (7-18); BUN/Creat Ratio 20.2 RATIO (10-20); Calcium,Total 8.9 mg/dL (8.5-10.1); Chloride 102 mmol/L (98-107); Creatinine, Serum 0.64 mg/dL (0.70-1.30); EST Glomerular Filtration Rate 137 mL/min (>60); Est Glom Filt Rate - Afr Amer 165 mL/min (>60); Glucose 225 mg/dL (74-106); Potassium 3.7 mmol/L (3.5-5.1); Sodium Level 134 mmol/L (136-145)
[2023-10-03 09:40] LABS: Anisocytosis 1+; Hypochromasia 1+
== END ==
LOC: OLS.WHLTCC 05:00
PROVIDERS: PCP Family Medicine; Visit Provider Internal Medicine
DX: E11.9 Type 2 diabetes mellitus without complications (principal); R33.9 Retention of urine, unspecified
CPT/HCPCS: 36415; 80048; 85025

== ENCOUNTER 2023-10-15 03:21 | Emergency (ER) | payer OTHER, SELFPAY ==
[2023-10-15 03:22] VITALS: BP 110/45; PULSE 99; RESP 17; TEMP 36.1; O2SAT 98; BMI 47.8
[2023-10-15 03:26] VITALS: BP 110/45; PULSE 99; RESP 16; TEMP 36.1; O2SAT 96
--- NOTE | 2023-10-15 03:55 | EX.ED.GUMALE ---
HPI History of Present Illness Chief Complaint: Complaint Informant: patient, EMS and SNF Narrative Narrative: 58-year-old male with chronic indwelling Campbell secondary to paraplegia on Eliquis due to DVT. Patient states that 1 week ago he had a Campbell catheter change by [facility] urology in [place]. He states he had been doing well since his previous hospitalization in August where he was admitted for UTI and hematuria. He ended up requiring cystoscopy by Dr. Rosado. The patient had been admitted to this hospital while awaiting transfer on [facility] to [facility]. He states that this evening he began to have hematuria. The long-term changed his Campbell catheter prior to coming to the hospital. Reportedly patient was possibly in urinary retention with 900 cc removed from the catheter. This was felt due to clot in the catheter. Patient denies any fevers. He is not currently on antibiotics. During his last hospitalization patient required transfusion. [facility] Medical History Chronic indwelling Campbell catheter Blood loss anemia Clot retention of urine Pressure injury, unstageable, with eschar Bilateral pulmonary embolism Rhabdomyolysis Community acquired pneumonia Hypoglycemia Acute osteomyelitis of spine Former tobacco use Paraplegia Lymphedema Cellulitis of leg without foot, right Anemia BMI greater than 40 BATOOL treated with BiPAP Type 2 diabetes mellitus HTN (hypertension) H/o back surgery Home Medications ?Medication ?Instructions ?Recorded ?Last Taken ?Type fluticasone propionate 50 1 spray intranasal DAILY shortness 03/03/20 Unknown History mcg/actuation nasal of breath spray,suspension (Flonase Allergy Relief) apixaban 5 mg tablet (Eliquis) 5 mg PO DAILY 07/29/23 08/31/23 History docusate sodium 100 mg capsule 100 mg PO QHS 07/29/23 08/31/23 History (Colace) gabapentin 100 mg capsule 100 mg PO QHS 07/29/23 08/31/23 History insulin glargine 100 unit/mL 22 unit subcut DAILY diabetes 07/29/23 08/31/23 History subcutaneous solution (Lantus mellitus type 2 U-100 Insulin) insulin lispro 100 unit/mL 8 unit subcut TID 07/29/23 08/31/23 History subcutaneous solution methocarbamol 500 mg tablet 1,000 mg PO TID PRN cramps 07/29/23 08/31/23 History polyethylene glycol 3350 17 17 g PO DAILY 07/29/23 07/29/23 History gram/dose oral powder (ClearLax) pantoprazole 40 mg tablet,delayed 40 mg PO DAILY 08/31/23 08/31/23 History release acetaminophen 325 mg tablet 650 mg (2 x 325 mg) PO Q4H PRN PRN 09/13/23 Unknown Rx Fever, pain 1-02/22 #0 tabs aluminum-mag hydroxide-simethicone 30 ml PO Q6H PRN PRN Gastric 09/13/23 Unknown Rx 400 mg-400 mg-40 mg/5 mL oral susp Burning #0 mL (Mag-Al Plus Extra Strength) amlodipine 10 mg tablet 10 mg PO DAILY #0 tabs 09/13/23 Unknown Rx benzonatate 100 mg capsule 100 mg PO TID PRN PRN 09/13/23 Unknown Rx COUGH/CONGESTION #0 caps carvedilol 12.5 mg tablet 12.5 mg PO BIDCM #0 tabs 09/13/23 Unknown Rx diphenhydramine HCl 25 mg capsule 25 mg PO TID PRN PRN Itching #0 09/13/23 Unknown Rx (Banophen) caps guaifenesin 1,200 mg tablet, 1,200 mg PO BID #0 tabs 09/13/23 Unknown Rx extended release 12 hr (Mucus Relief ER) insulin lispro 100 unit/mL See Protocol subcut ACHS #0 mL 09/13/23 Unknown Rx subcutaneous pen (Humalog KwikPen (U-100) Insulin) melatonin 3 mg tablet 3 mg PO QHS PRN PRN Insomnia #0 09/13/23 Unknown Rx tabs morphine 30 mg tablet,extended 30 mg PO Q12H 2 days #4 tabs 09/13/23 Unknown Rx release oxycodone 10 mg tablet 10 mg PO 4X/DAY PRN pain 2 days #8 09/13/23 Unknown Rx tabs peg [id number] 1 1 drp EACH EYE BID #0 mL 09/13/23 Unknown Rx %-0.2 %-0.2 % eye drops (Artificial Tears ([id number])) albuterol sulfate 2.5 mg/0.5 mL 2.5 mg inhalation BID 10/15/23 Unknown History solution for nebulization amino acids-protein hydrolysate 15 30 ml PO BID 10/15/23 Unknown History gram-100 kcal/30 mL oral liquid (Pro-Stat Sugar Free) polysaccharide iron complex 150 mg 150 mg PO DAILY 10/15/23 Unknown History iron capsule (Ferrex) sennosides 8.6 mg-docusate sodium 2 tab PO QHS Constipation 10/15/23 Unknown History 50 mg tablet (Stool Softener-Stimulant Laxative) Allergy/AdvReac Type Severity Reaction Status Date / Time No Known Allergies Allergy Verified 10/15/23 03:22 Family History Mother Hypertension Hypotension Diabetes Arthritis Father Hypertension Hypotension Heart disease Status post double vessel coronary artery bypass angina Arthritis Grandfather Prostate cancer Grandmother Uterine cancer Surgical History Hx of spinal surgery H/O sinus surgery Social History household members: other details: parents housing: long-term current occupational status: employed and retired Smoking Status: Former smoker alcohol intake: never substance use type: does not use do you feel safe at home: Yes ROS ROS ED Constitutional Constitutional ED: Denies chills or weight loss Eyes Eyes: Denies change in vision or diplopia ENT ENT ED: Denies ear pain, rhinorrhea or sore throat Cardiovascular Cardiovascular: Denies chest pain, orthopnea, palpitations or racing heartbeat Respiratory/Chest Respiratory/Chest: Denies cough, dyspnea or orthopnea Gastrointestinal Gastrointestinal: Denies abdominal pain, diarrhea, nausea or vomiting Genitourinary Genitourinary ED: Reports hematuria; Denies dysuria or urinary frequency Musculoskeletal Musculoskeletal: Denies arthralgias or myalgias Integumentary Denies abscess or rash Neurologic Neurologic: Denies headache(s) or weakness Psychiatric Psychiatric: Denies anxiety, depression, suicidal ideation or suicidal thoughts Endocrine Endocrinology: Denies polydipsia, polyphagia or polyuria Allergic/Immunologic Allergic/Immunologic ED: Denies mouth swelling, tongue swelling or urticaria EXAM Physical Exam Const Vital Signs: 10/15/23 03:22 10/15/23 03:26 10/15/23 04:32 Temperature 96.9 F L 96.9 F L 98.3 F Temperature Source Temporal Temporal Oral Pulse Rate 99 99 103 H Respiratory Rate 17 16 17 Blood Pressure 110/45 L 110/45 L 110/44 L Blood Pressure Mean 66 66 66 Pulse Ox 98 96 92 Oxygen Delivery Method Room Air Room Air Room Air Positive well nourished, well developed and obese General Appearance ED: well developed Nutritional Appearance: obese HEENT Reports normocephalic, head/scalp atraumatic and moist mucous membranes Eyes PERRL and EOMs intact bilaterally Neck no lymphadenopathy, supple and no JVD Resp normal respiratory effort and clear to auscultation bilaterally Cardio regular rate, regular rhythm and no murmurs GI normal to inspection, nondistended, normoactive bowel sounds and non-tender Palpation: soft Narrative: There is a new indwelling catheter noted. There is dark blood in the Campbell bag but pink urine that appears cloudy in the catheter tubing. Back/Spine no CVA tenderness and normal ROM Neuro oriented x3 and CN's II-XII intact bilaterally Sensorium / Orientation: alert Psych mental status grossly normal Mood & Affect: Negative for depressed or tearful Skin no rashes or lesions noted and no wounds MDM MDM MDM Narrative Medical decision making narrative: Differential diagnosis includes but not limited to catheter trauma, UTI, hemorrhagic cystitis, renal dysfunction, anemia, as the catheter had been replaced just prior to arrival in the emergency department and a new catheter was not placed. It is draining the bladder decompressed. Campbell catheter was irrigated until clear we have now had about 300 cc of urine that is yellow in color and no further bleeding. White count is 9.6 with hemoglobin up to 9.3. Creatinine normal. Urinalysis with greater than 100 red cells 50-100 white cells rare bacteria. This was sent for culture. I reviewed the patient's previous cultures and his most recent one about a month ago. Given his symptoms and the urinalysis tonight and 2 recent [address] will place him on cefdinir. The patient will be discharged back to long-term. He was updated and notes understanding of the plan and the evaluation. History & Record Review Discussion w/independent historian: Patient Additional record(s) reviewed:: Prior inpatient record, Prior ED visit and Prior labs Lab Data Attestation: I reviewed the patient's lab results. Labs: Laboratory Results - last 24 hr 10/15/23 10/15/23 04:25 04:29 WBC 9.6 RBC 4.25 L Hgb 9.3 L Hct 34.1 L MCV 80.2 MCH 21.9 L MCHC 27.3 L RDW Std Deviation 58.3 H RDW Coeff of Mary 20.1 H Plt Count 424 MPV 8.9 Immature Gran % (Auto) 0.700 Neut % (Auto) 56.4 Lymph % (Auto) 27.3 [place] % (Auto) 10.0 Eos % (Auto) 4.9 Baso % (Auto) 0.7 Absolute Neuts (auto) 5.4 Absolute Lymphs (auto) 2.63 Nucleated RBC % 0 Anisocytosis 2+ Microcytosis 2+ Sodium 134 L Potassium 4.3 Chloride 101 Carbon Dioxide 25.0 Anion Gap 8 BUN 15 Creatinine 0.73 Estim Creat Clear Calc 151.92 Est GFR (MDRD) Af Amer 143 Est GFR (MDRD) Non-Af 118 BUN/Creatinine Ratio 20.6 H Glucose 208 H Calcium 8.9 Urine Color Red Urine Clarity Turbid Urine pH 6.5 Ur Specific [place] 1.015 Urine Protein 500 H Urine Glucose (UA) Normal Urine Ketones Negative Urine Occult Blood 250 H Urine Nitrite Negative Urine Bilirubin Negative Urine Urobilinogen Normal Ur Leukocyte Esterase 500 H Urine RBC > 100 SEEN Urine WBC 50-100 SEEN Ur Squamous Epith Cells 0 SEEN Urine Bacteria RARE Urine Mucus 0 SEEN Discharge Plan Triage Chief Complaint: Complaint ED Provider: Alexei Vernon Dx/Rx/DC Orders Prescriptions: No Action fluticasone propionate [Flonase Allergy Relief] 50 mcg/actuation spray,suspension 1 spray INTRANASAL DAILY Patient Comments: takes in once in awhile Rx Instructions: administer into each nostril pantoprazole 40 mg tablet,delayed release (DR/EC) 40 mg PO DAILY melatonin 3 mg Tablet 3 mg PO QHS PRN PRN (Reason: Insomnia) Qty: 0 0RF alum-mag hydroxide-simeth [Mag-Al Plus Extra Strength] 400-400-40 mg/5 mL Suspension 30 ml PO Q6H PRN PRN (Reason: Gastric Burning) Qty: 0 0RF insulin lispro [Humalog KwikPen Insulin] 100 unit/mL Insulin Pen See Protocol subcut ACHS Qty: 0 0RF Protocol: 3. Sliding Scale Insulin Med Dosing Condition: 150-189 mg/dl = 1 unit Condition: 190-229 mg/dl = 2 units Condition: 230-269 mg/dl = 3 units Condition: 270-309 mg/dl = 4 units Condition: 310-349 mg/dl = 5 units Condition: 350-399 mg/dl = 6 units Condition: 400-449 mg/dl = 7 units Condition: Greater than 449 call physician Protocol Text: - Use for Total Daily Dose of Insulin 37-55 units - Obsese, infected, or steroid patients MEDIUM DOSING ALGORITHIM Artificial Tears([id number]) 1-0.2-0.2 % Drops 1 drp EACH EYE BID Qty: 0 0RF guaifenesin [Mucus Relief ER] 1,200 mg Tablet Extended Release 12hr 1,200 mg PO BID Qty: 0 0RF acetaminophen 325 mg Tablet 650 mg PO Q4H PRN PRN (Reason: Fever, pain 1-02/22) Qty: 0 0RF carvedilol 12.5 mg Tablet 12.5 mg PO BIDCM Qty: 0 0RF amlodipine 10 mg Tablet 10 mg PO DAILY Qty: 0 0RF benzonatate 100 mg Capsule 100 mg PO TID PRN PRN (Reason: COUGH/CONGESTION) Qty: 0 0RF diphenhydramine HCl [Banophen] 25 mg Capsule 25 mg PO TID PRN PRN (Reason: Itching) Qty: 0 0RF morphine 30 mg tablet extended release 30 mg PO Q12H 2 Days Qty: 4 0RF oxycodone 10 mg tablet 10 mg PO 4X/DAY PRN (Reason: pain) 2 Days Qty: 8 0RF albuterol sulfate 2.5 mg/0.5 mL solution for nebulization 2.5 mg inhalation BID Pro-Stat Sugar Free 15-100 gram-kcal/30 mL liquid 30 ml PO BID polysaccharide iron complex [Ferrex 150] 150 mg iron Capsule 150 mg PO DAILY sennosides-docusate sodium [Stool Softener-Stimulant Laxat] 8.6-50 mg Tablet 2 tab PO QHS methocarbamol 500 mg tablet 1,000 mg PO TID PRN (Reason: cramps) gabapentin 100 mg capsule 100 mg PO QHS Eliquis 5 mg tablet 5 mg PO DAILY insulin glargine [Lantus U-100 Insulin] 100 unit/mL solution 22 unit subcut DAILY insulin lispro 100 unit/mL solution 8 unit subcut TID Patient Comments: 8 units in the morning, 8 at noon and 8 units in the evening docusate sodium [Colace] 100 mg capsule 100 mg PO QHS polyethylene glycol 3350 [ClearLax] 17 gram/dose powder 17 g PO DAILY Primary Care Provider: Wilma Thayer Referrals: Wilma Thayer DO [Primary Care Provider] - Print Language: Albanian
[2023-10-15 04:32] VITALS: BP 110/44; PULSE 103; RESP 17; TEMP 36.8; O2SAT 92
[2023-10-15 04:33] LABS: Mucous, Urine 0 SEEN /hpf (<or=2+); Squamous Epithelial Cells - UA 0 SEEN /hpf (0-5)
[2023-10-15 04:35] LABS: Absolute Lymphocyte Count 2.63 X10^3/uL (0.83-4.51); Absolute Neutrophil Count 5.4 X10^3/uL (2.0-7.7); Basophil# 0.07 X10^3/uL; Basophil% 0.7 % (0-1); Eosinophil# 0.47 X10^3/uL; Eosinophils% 4.9 % (0-5); Hematocrit 34.1 % (40-54); Hemoglobin 9.3 g/dL (13.0-16.5); Lymphocyte # 2.63 X10^3/ul (0.83-4.51); Lymphocyte % 27.3 % (19-41); Mean Corp Hgb Conc 27.3 g/dL (32-36); Mean Corpuscular Hgb 21.9 pg (27.0-32.0); Mean Corpuscular Volume 80.2 fL (80-94); Mean Platelet Vol. 8.9 fl (6.2-12.0); Monocyte# 0.96 X10^3/uL; NRBC Flagged by Analyzer 0 % (0-5); Neutrophil # 5.44 X10^3/uL (2.7-7.7); Neutrophil % 56.4 % (47-70); POSITIVE MORPHOLOGY YES; Platelet Count 424 K/mm3 (150-450); RBC Distribution Width CV 20.1 % (11.6-14.6); RBC Distribution Width SD 58.3 fl (35.1-43.9); Red Blood Count 4.25 M/mm3 (4.6-6.2); White Blood Count 9.6 K/mm3 (4.4-11.0)
[2023-10-15 04:40] LABS: Color, Urine Red (Yellow); Glucose, Dipstick Normal (Normal); Ketone-Dipstick Negative (Negative); Leukocyte Esterase-Dipstick 500 /ul (Negative); Nitrite-Dipstick Negative (Negative); Occult Blood-Urine 250 /ul (Negative); Protein-Dipstick 500 mg/dl (Negative); Specific Gravity, Urine 1.015 (1.002-1.030); Urine Bilirubin Dipstick Negative (Negative); Urine Clarity Turbid (Clear); Urine Urobilinogen Normal (Normal); Urine pH 6.5 (5.0 - 8.0)
[2023-10-15 04:47] LABS: Anion Gap 8 (5-15); BUN 15 mg/dL (7-18); BUN/Creat Ratio 20.6 RATIO (10-20); Calcium,Total 8.9 mg/dL (8.5-10.1); Chloride 101 mmol/L (98-107); Creatinine, Serum 0.73 mg/dL (0.70-1.30); EST Glomerular Filtration Rate 118 mL/min (>60); Est Glom Filt Rate - Afr Amer 143 mL/min (>60); Estimated Creatinine Clearance 151.92 ml/min; Glucose 208 mg/dL (74-106); Potassium 4.3 mmol/L (3.5-5.1); Sodium Level 134 mmol/L (136-145)
[2023-10-15 04:59] LABS: Differential Indicated SCAN CRITERIA MET
[2023-10-15 05:12] LABS: White Blood Cells 50-100 SEEN /hpf (0-5)
[2023-10-15 05:13] LABS: Bacteria RARE /hpf (None Seen); Red Blood Cells-Urine > 100 SEEN /hpf (0-5)
[2023-10-15 05:21] LABS: Anisocytosis 2+; Microcytosis 2+
[2023-10-15 05:22] VITALS: BP 125/58; PULSE 98; RESP 15; O2SAT 94
[2023-10-15] MEDS: Cefdinir 300 MG Capsule PO (06:29)
[2023-10-15 07:00] VITALS: BP 128/60; PULSE 96; RESP 14; O2SAT 95
[2023-10-15 08:52] VITALS: BP 103/69; PULSE 100; RESP 20; TEMP 37.2; O2SAT 96
== END 2023-10-15 08:53 | disposition home or self-care (01) ==
PROVIDERS: Emergency Provider Emergency Medicine; PCP Family Medicine; Visit Provider Emergency Medicine
DX: R31.9 Hematuria, unspecified (principal); G82.20 Paraplegia, unspecified; E11.9 Type 2 diabetes mellitus without complications; Z79.4 Long term (current) use of insulin; Z87.891 Personal history of nicotine dependence; Z79.01 Long term (current) use of anticoagulants; G47.33 Obstructive sleep apnea (adult) (pediatric); Z99.81 Dependence on supplemental oxygen; I10 Essential (primary) hypertension; Z79.899 Other long term (current) drug therapy; Z96.0 Presence of urogenital implants
CPT/HCPCS: 80048; 81001; 85025; 87077; 87086; 87088; 87186; 99284; A4216

== ENCOUNTER → 2023-10-17 | Outpatient (REF) | payer OTHER, SELFPAY ==
[2023-10-17 07:19] LABS: Absolute Lymphocyte Count 2.86 X10^3/uL (0.83-4.51); Basophil# 0.06 X10^3/uL; Basophil% 0.6 % (0-1); Eosinophils% 5.4 % (0-5); Hematocrit 32.7 % (40-54); Hemoglobin 8.8 g/dL (13.0-16.5); Lymphocyte # 2.86 X10^3/ul (0.83-4.51); Lymphocyte % 30.8 % (19-41); Mean Corp Hgb Conc 26.9 g/dL (32-36); Mean Corpuscular Hgb 21.2 pg (27.0-32.0); Mean Corpuscular Volume 78.6 fL (80-94); Mean Platelet Vol. 9.2 fl (6.2-12.0); Monocyte# 0.81 X10^3/uL; Monocyte% 8.7 % (0-10); NRBC Flagged by Analyzer 0 % (0-5); Neutrophil # 4.95 X10^3/uL (2.7-7.7); Neutrophil % 53.4 % (47-70); Platelet Count 441 K/mm3 (150-450); RBC Distribution Width CV 19.9 % (11.6-14.6); RBC Distribution Width SD 56.6 fl (35.1-43.9); Red Blood Count 4.16 M/mm3 (4.6-6.2); White Blood Count 9.3 K/mm3 (4.4-11.0)
[2023-10-17 07:32] LABS: Anion Gap 8 (5-15); BUN 14 mg/dL (7-18); BUN/Creat Ratio 19.7 RATIO (10-20); Calcium,Total 9.1 mg/dL (8.5-10.1); Chloride 100 mmol/L (98-107); Creatinine, Serum 0.71 mg/dL (0.70-1.30); EST Glomerular Filtration Rate 122 mL/min (>60); Est Glom Filt Rate - Afr Amer 147 mL/min (>60); Glucose 242 mg/dL (74-106); Potassium 3.8 mmol/L (3.5-5.1); Sodium Level 135 mmol/L (136-145)
== END ==
LOC: OLS.WHLTCC 05:00
PROVIDERS: PCP Family Medicine; Visit Provider Internal Medicine
DX: E11.9 Type 2 diabetes mellitus without complications (principal)
CPT/HCPCS: 36415; 80048; 85025

== ENCOUNTER 2023-10-23 07:23 | Emergency (ER) | payer OTHER, SELFPAY ==
[2023-10-23] VITALS (11 sets, daily range): BP systolic 102–135; BP diastolic 55–77; PULSE 101–112; RESP 15–22; TEMP 36.3–36.9; O2SAT 88–98; BMI 49.4
--- NOTE | 2023-10-23 07:33 | ED.VIS.GI ---
HPI HPI - GI History of Present Illness Chief Complaint: Abd Pain Informant: patient Abdominal Pain/Flank Pain Onset: Yesterday Context: Sudden Onset Timing: Continuous Quality: - (Bloated) Location: Diffuse Worsened by: Movement and - (Palpation) Relieved by: Nothing Nausea/Vomiting/Emesis GI Symptom: Negative for Nausea or Vomiting Diarrhea/Melena/Hematochezia GI Symptom: Positive for Diarrhea; Negative for Melena or Hematochezia Onset: Yesterday Stool Quality: Positive for Watery Associated Symptoms Associated Symptoms: Positive for Hematuria; Negative for Dysuria Narrative Narrative: Patient presents with abdominal pain that began yesterday. Patient states it has gotten worse since yesterday. Patient states it began rather suddenly. Patient states it is diffuse across his abdomen but worse on the right. Patient states that the staff at the [facility] felt that the right side of his abdomen was more distended than the left. Patient describes his pain as feeling bloated. Patient states it is worse with rolling over and with any palpation. Patient states nothing seems to help with the pain. Patient denies any nausea or vomiting. Patient admits to some recent diarrhea. Patient denies any melena or hematochezia. Patient also admits to some hematuria yesterday. Patient states this has resolved. Patient states she was diagnosed with urinary tract infection yesterday but has not started on any antibiotics yet. [facility] Medical History Chronic indwelling Campbell catheter Blood loss anemia Clot retention of urine Pressure injury, unstageable, with eschar Bilateral pulmonary embolism Rhabdomyolysis Community acquired pneumonia Hypoglycemia Acute osteomyelitis of spine Former tobacco use Paraplegia Lymphedema Cellulitis of leg without foot, right Anemia BMI greater than 40 BATOOL treated with BiPAP Type 2 diabetes mellitus HTN (hypertension) H/o back surgery Home Medications ?Medication ?Instructions ?Recorded ?Last Taken ?Type fluticasone propionate 50 1 spray intranasal DAILY shortness 03/03/20 Unknown History mcg/actuation nasal of breath spray,suspension (Flonase Allergy Relief) apixaban 5 mg tablet (Eliquis) 5 mg PO DAILY 07/29/23 08/31/23 History docusate sodium 100 mg capsule 100 mg PO QHS 07/29/23 08/31/23 History (Colace) gabapentin 100 mg capsule 100 mg PO QHS 07/29/23 08/31/23 History insulin glargine 100 unit/mL 24 unit subcut DAILY diabetes 07/29/23 08/31/23 History subcutaneous solution (Lantus mellitus type 2 U-100 Insulin) insulin lispro 100 unit/mL 8 unit subcut TID 07/29/23 08/31/23 History subcutaneous solution methocarbamol 500 mg tablet 1,000 mg PO TID PRN cramps 07/29/23 08/31/23 History polyethylene glycol 3350 17 17 g PO DAILY 07/29/23 07/29/23 History gram/dose oral powder (ClearLax) pantoprazole 40 mg tablet,delayed 40 mg PO DAILY 08/31/23 08/31/23 History release acetaminophen 325 mg tablet 650 mg (2 x 325 mg) PO Q4H PRN PRN 09/13/23 Unknown Rx Fever, pain 1-02/22 #0 tabs aluminum-mag hydroxide-simethicone 30 ml PO Q6H PRN PRN Gastric 09/13/23 Unknown Rx 400 mg-400 mg-40 mg/5 mL oral susp Burning #0 mL (Mag-Al Plus Extra Strength) amlodipine 10 mg tablet 10 mg PO DAILY #0 tabs 09/13/23 Unknown Rx benzonatate 100 mg capsule 100 mg PO TID PRN PRN 09/13/23 Unknown Rx COUGH/CONGESTION #0 caps carvedilol 12.5 mg tablet 12.5 mg PO BIDCM #0 tabs 09/13/23 Unknown Rx diphenhydramine HCl 25 mg capsule 25 mg PO TID PRN PRN Itching #0 09/13/23 Unknown Rx (Banophen) caps guaifenesin 1,200 mg tablet, 1,200 mg PO BID #0 tabs 09/13/23 Unknown Rx extended release 12 hr (Mucus Relief ER) melatonin 3 mg tablet 3 mg PO QHS PRN PRN Insomnia #0 09/13/23 Unknown Rx tabs morphine 30 mg tablet,extended 30 mg PO Q12H 2 days #4 tabs 09/13/23 Unknown Rx release oxycodone 10 mg tablet 10 mg PO 4X/DAY PRN pain 2 days #8 09/13/23 Unknown Rx tabs peg [id number] 1 1 drp EACH EYE BID #0 mL 09/13/23 Unknown Rx %-0.2 %-0.2 % eye drops (Artificial Tears ([id number])) albuterol sulfate 2.5 mg/0.5 mL 2.5 mg inhalation BID 10/15/23 Unknown History solution for nebulization amino acids-protein hydrolysate 15 30 ml PO BID 10/15/23 Unknown History gram-100 kcal/30 mL oral liquid (Pro-Stat Sugar Free) polysaccharide iron complex 150 mg 150 mg PO DAILY 10/15/23 Unknown History iron capsule (Ferrex) sennosides 8.6 mg-docusate sodium 2 tab PO QHS Constipation 10/15/23 Unknown History 50 mg tablet (Stool Softener-Stimulant Laxative) insulin lispro 100 unit/mL See Protocol subcut ACHS 10/23/23 Unknown History subcutaneous pen (Humalog KwikPen (U-100) Insulin) loratadine 10 mg tablet 10 mg PO DAILY 10/23/23 Unknown History (Allerwaltar) nitrofurantoin 100 mg PO Q12 #14 CAPSULES 10/23/23 Unknown Rx monohydrate/macrocrystals 100 mg capsule sulfamethoxazole 800 1 tab PO BID #14 TABLETS 10/23/23 Unknown Rx mg-trimethoprim 160 mg tablet Allergy/AdvReac Type Severity Reaction Status Date / Time No Known Allergies Allergy Verified 10/23/23 07:28 Family History Mother Hypertension Hypotension Diabetes Arthritis Father Hypertension Hypotension Heart disease Status post double vessel coronary artery bypass angina Arthritis Grandfather Prostate cancer Grandmother Uterine cancer Surgical History Hx of spinal surgery H/O sinus surgery Social History household members: other details: parents housing: [facility] current occupational status: employed and retired Smoking Status: Former smoker alcohol intake: never substance use type: does not use do you feel safe at home: Yes ROS ROS ED Constitutional Constitutional ED: Reports fever(s); Denies chills Eyes Eyes: Denies blurry vision or change in vision ENT ENT ED: Denies rhinorrhea or sore throat Cardiovascular Cardiovascular: Denies chest pain or palpitations Respiratory/Chest Respiratory/Chest: Denies cough or dyspnea Gastrointestinal Gastrointestinal: Reports abdominal pain and diarrhea; Denies nausea or vomiting Genitourinary Genitourinary ED: Reports hematuria; Denies dysuria Musculoskeletal Musculoskeletal: Denies back pain or neck pain Integumentary Denies abscess or rash Neurologic Neurologic: Denies headache(s) or weakness Allergic/Immunologic Allergic/Immunologic ED: Denies mouth swelling or urticaria EXAM Physical Exam Const Vital Signs: 10/23/23 07:24 10/23/23 07:28 10/23/23 08:28 Temperature 98.2 F 98.2 F 97.3 F L Temperature Source Temporal Temporal Oral Pulse Rate 112 H 109 H 105 H Respiratory Rate 22 H 20 H 16 Blood Pressure 116/55 L 102/70 107/69 Blood Pressure Mean 75 80 81 Pulse Ox 88 93 93 Oxygen Delivery Method Room Air Nasal Cannula Nasal Cannula Oxygen Flow Rate (L/min) 2 2 10/23/23 09:00 10/23/23 09:56 10/23/23 10:00 Temperature 97.3 F L 97.5 F L 97.6 F L Temperature Source Oral Oral Oral Pulse Rate 103 H 103 H 104 H Respiratory Rate 17 15 16 Blood Pressure 117/67 113/71 116/70 Blood Pressure Mean 83 85 85 Pulse Ox 94 94 96 Oxygen Delivery Method Nasal Cannula Nasal Cannula Nasal Cannula Oxygen Flow Rate (L/min) 2 2 2 10/23/23 11:00 10/23/23 11:18 10/23/23 12:00 Temperature 98.2 F 98.4 F 98 F Temperature Source Oral Oral Oral Pulse Rate 101 H 102 H 103 H Respiratory Rate 18 20 H 22 H Blood Pressure 104/62 104/62 113/68 Blood Pressure Mean 76 76 83 Pulse Ox 95 95 98 Oxygen Delivery Method Nasal Cannula Nasal Cannula Room Air Oxygen Flow Rate (L/min) 2 2 Positive well nourished and well developed General Appearance ED: well developed and NAD HEENT Reports moist mucous membranes Neck supple and no JVD Resp normal respiratory effort and clear to auscultation bilaterally Cardio regular rhythm Rate: tachycardic GI Palpation: soft and tender epigastric, LLQ, RLQ, LUQ, RUQ, periumbilical and suprapubic; Negative for rebound tenderness present Neuro CN's II-XII intact bilaterally Neuro Narrative: Patient is paraplegic. Patient has no sensation or strength in the lower extremities. Sensorium / Orientation: alert Psych mental status grossly normal and thought process normal MDM MDM MDM Narrative Medical decision making narrative: Differential diagnosis includes bowel obstruction, perforation, pyelonephritis, gastroenteritis, cholecystitis, cholelithiasis, pancreatitis, and viral illness. CT scan of the abdomen pelvis will be obtained to assess for bowel obstruction, perforation, cholecystitis, and pancreatitis. CBC will be obtained to assess for leukocytosis and anemia. Comprehensive metabolic profile will be obtained to assess for hepatic function, renal function, and electrolyte abnormalities. Lipase will be obtained to assess for pancreatitis. Urinalysis will be obtained to assess for urinary tract infection and pyelonephritis. Lactate will be obtained to assess for sepsis. Lab Data Attestation: I reviewed the patient's lab results. Lab results narrative: CBC shows mild leukocytosis of 15.7. Hemoglobin was 8.2 and hematocrit was 29.7. Platelets were normal. Comprehensive metabolic profile was reviewed and was essentially within normal limits. Glucose was slightly elevated at 184. Lipase was reviewed and was normal at 15. Labs: Laboratory Results - last 24 hr 10/23/23 07:40 WBC 15.7 H RBC 3.91 L Hgb 8.2 L Hct 29.7 L MCV 76.0 L MCH 21.0 L MCHC 27.6 L RDW Std Deviation 55.1 H RDW Coeff of Mary 19.9 H Plt Count 387 MPV 8.9 Immature Gran % (Auto) 0.600 Neut % (Auto) 73.1 H Lymph % (Auto) 17.3 L [place] % (Auto) 7.3 Eos % (Auto) 1.4 Baso % (Auto) 0.3 Absolute Neuts (auto) 11.5 H Absolute Lymphs (auto) 2.72 Nucleated RBC % 0 Sodium 131 L Potassium 4.2 Chloride 99 Carbon Dioxide 26.0 Anion Gap 6 BUN 17 Creatinine 0.73 Estim Creat Clear Calc 154.80 Est GFR (MDRD) Af Amer 142 Est GFR (MDRD) Non-Af 117 BUN/Creatinine Ratio 23.2 H Glucose 184 H Lactic Acid 1.7 Calcium 8.8 Total Bilirubin 0.60 AST 11 L ALT 16 Alkaline Phosphatase 77 Total Protein 7.2 Albumin 2.5 L Globulin 4.7 H Albumin/Globulin Ratio 0.5 L Lipase 15 Radiography Diagnostic Testing: Clinical Impression(s) from Imaging Studies Abdomen/Pelvis CT 10/23/23 09:35 IMPRESSION: 1. Moderate right lower lobe atelectasis and a small pleural effusion 2. Colonic diverticulosis 3. There is a small umbilical hernia containing fat and a short segment of the sigmoid colon without incarceration, measuring 6.43 cm in diameter, unchanged from the prior study. 4. Decubitus ulcers are present posterior to the right hip and inferior pubic ramus with small amounts of subcutaneous air and subcutaneous edema but no discrete abscess is present. No active cortical erosion or bony destruction is seen to suggest osteomyelitis. Electronically Signed: Jewel Greer MD at 10:03 EDT , CT scan of the abdomen and pelvis was obtained. There is a small right pleural effusion and right lower lobe atelectasis. There is diverticulosis but no evidence of diverticulitis. There is a small umbilical hernia containing fat and a short segment of the sigmoid colon without incarceration. This was unchanged from previous study. There are decubitus ulcers in the posterior right hip but there is no abscess noted. There is no evidence of osteomyelitis. This was interpreted by the radiologist and was also independently reviewed by myself. Treatment and Re-Evaluation :: Patient was given a dose of Zosyn here. Urine culture from 10/15/2023 was reviewed. This grew out ESBL E. coli, Klebsiella, and Proteus. The E. coli was sensitive to Macrobid. The Klebsiella and Proteus was sensitive to Bactrim. Patient was given prescriptions for these. Patient was instructed to follow-up with his primary care physician in 5 to 7 days. Patient was instructed to return if worse in any way. Patient understood and was agreeable with the plan. All questions were answered. Discharge Plan Triage Chief Complaint: Abd Pain ED Provider: Lucian Beckett Dx/Rx/DC Orders Clinical Impression: Urinary tract infection, History of paraplegia, Abdominal pain Instructions: ED Bladder Infection, Male (Adult), ED Abdominal Pain Unkn Cause Male... Prescriptions: New sulfamethoxazole-trimethoprim 800-160 mg tablet 1 tab PO BID Qty: 14 0RF nitrofurantoin monohyd/m-cryst 100 mg capsule 100 mg PO Q12 Qty: 14 0RF No Action fluticasone propionate [Flonase Allergy Relief] 50 mcg/actuation spray,suspension 1 spray INTRANASAL DAILY Patient Comments: takes in once in awhile Rx Instructions: administer into each nostril pantoprazole 40 mg tablet,delayed release (DR/EC) 40 mg PO DAILY melatonin 3 mg Tablet 3 mg PO QHS PRN PRN (Reason: Insomnia) Qty: 0 0RF alum-mag hydroxide-simeth [Mag-Al Plus Extra Strength] 400-400-40 mg/5 mL Suspension 30 ml PO Q6H PRN PRN (Reason: Gastric Burning) Qty: 0 0RF Artificial Tears([id number]) 1-0.2-0.2 % Drops 1 drp EACH EYE BID Qty: 0 0RF guaifenesin [Mucus Relief ER] 1,200 mg Tablet Extended Release 12hr 1,200 mg PO BID Qty: 0 0RF acetaminophen 325 mg Tablet 650 mg PO Q4H PRN PRN (Reason: Fever, pain 1-02/22) Qty: 0 0RF carvedilol 12.5 mg Tablet 12.5 mg PO BIDCM Qty: 0 0RF amlodipine 10 mg Tablet 10 mg PO DAILY Qty: 0 0RF benzonatate 100 mg Capsule 100 mg PO TID PRN PRN (Reason: COUGH/CONGESTION) Qty: 0 0RF diphenhydramine HCl [Banophen] 25 mg Capsule 25 mg PO TID PRN PRN (Reason: Itching) Qty: 0 0RF morphine 30 mg tablet extended release 30 mg PO Q12H 2 Days Qty: 4 0RF oxycodone 10 mg tablet 10 mg PO 4X/DAY PRN (Reason: pain) 2 Days Qty: 8 0RF albuterol sulfate 2.5 mg/0.5 mL solution for nebulization 2.5 mg inhalation BID Pro-Stat Sugar Free 15-100 gram-kcal/30 mL liquid 30 ml PO BID polysaccharide iron complex [Ferrex 150] 150 mg iron Capsule 150 mg PO DAILY sennosides-docusate sodium [Stool Softener-Stimulant Laxat] 8.6-50 mg Tablet 2 tab PO QHS methocarbamol 500 mg tablet 1,000 mg PO TID PRN (Reason: cramps) gabapentin 100 mg capsule 100 mg PO QHS Eliquis 5 mg tablet 5 mg PO DAILY insulin glargine [Lantus U-100 Insulin] 100 unit/mL solution 24 unit subcut DAILY insulin lispro 100 unit/mL solution 8 unit subcut TID Patient Comments: 8 units in the morning, 8 at noon and 8 units in the evening docusate sodium [Colace] 100 mg capsule 100 mg PO QHS polyethylene glycol 3350 [ClearLax] 17 gram/dose powder 17 g PO DAILY loratadine [Allerclear] 10 mg tablet 10 mg PO DAILY Rx Instructions: am insulin lispro [Humalog KwikPen Insulin] 100 unit/mL Insulin Pen See Protocol subcut [facility] Protocol: 3. Sliding Scale Insulin Med Dosing Condition: 150-189 mg/dl = 1 unit Condition: 190-229 mg/dl = 2 units Condition: 230-269 mg/dl = 3 units Condition: 270-309 mg/dl = 4 units Condition: 310-349 mg/dl = 5 units Condition: 350-399 mg/dl = 6 units Condition: 400-449 mg/dl = 7 units Condition: Greater than 449 call physician Protocol Text: - Use for Total Daily Dose of Insulin 37-55 units - Obsese, infected, or steroid patients MEDIUM DOSING ALGORITHIM Rx Instructions: 8 units Primary Care Provider: Rhona Bartlett Referrals: Wilma Thayer DO [Med Staff - Active Staff] - 5-7 Days Print Language: [place] Disposition Disposition: Home, Self Care
[2023-10-23] MEDS: 0.9% Normal Saline (1000mL) 1,000 ML 999 ML IV (08:01)
[2023-10-23] MEDS: Morphine 4 MG/ML Syringe IV ×2 (08:01→12:22)
[2023-10-23] MEDS: Ondansetron 4 MG/2 ML Vial IV ×2 (08:01→13:12)
[2023-10-23] MEDS: Piperacil/Tazobactam 4.5 GM in 0.9% Normal Saline (100mL MB+) 100 ML IV (08:10)
[2023-10-23 08:14] LABS: ALB/GLOB Ratio 0.5 RATIO (0.9-2.4); AST(SGOT) 11 U/L (15-37); Alanine Aminotransfer ALT/SGPT 16 U/L (16-61); Albumin, Serum 2.5 g/dL (3.2-5.0); Alkaline Phosphatase 77 U/L (45-117); Anion Gap 6 (5-15); BUN 17 mg/dL (7-18); BUN/Creat Ratio 23.2 RATIO (10-20); Calcium,Total 8.8 mg/dL (8.5-10.1); Chloride 99 mmol/L (98-107); Creatinine, Serum 0.73 mg/dL (0.70-1.30); EST Glomerular Filtration Rate 117 mL/min (>60); Est Glom Filt Rate - Afr Amer 142 mL/min (>60); Globulin 4.7 g/dL (2.2-4.2); Glucose 184 mg/dL (74-106); Lipase 15 U/L (13-75); Potassium 4.2 mmol/L (3.5-5.1); Protein, Total 7.2 g/dL (6.4-8.2); Sodium Level 131 mmol/L (136-145)
[2023-10-23 08:16] LABS: Lactic Acid 1.7 mmol/L (0.4-1.9)
[2023-10-23 09:02] LABS: Absolute Lymphocyte Count 2.72 X10^3/uL (0.83-4.51); Absolute Neutrophil Count 11.5 X10^3/uL (2.0-7.7); Basophil# 0.04 X10^3/uL; Basophil% 0.3 % (0-1); Eosinophil# 0.22 X10^3/uL; Eosinophils% 1.4 % (0-5); Hematocrit 29.7 % (40-54); Hemoglobin 8.2 g/dL (13.0-16.5); Lymphocyte # 2.72 X10^3/ul (0.83-4.51); Lymphocyte % 17.3 % (19-41); Mean Corp Hgb Conc 27.6 g/dL (32-36); Mean Platelet Vol. 8.9 fl (6.2-12.0); Monocyte# 1.15 X10^3/uL; Monocyte% 7.3 % (0-10); NRBC Flagged by Analyzer 0 % (0-5); Neutrophil # 11.52 X10^3/uL (2.7-7.7); Neutrophil % 73.1 % (47-70); Platelet Count 387 K/mm3 (150-450); RBC Distribution Width CV 19.9 % (11.6-14.6); RBC Distribution Width SD 55.1 fl (35.1-43.9); Red Blood Count 3.91 M/mm3 (4.6-6.2); White Blood Count 15.7 K/mm3 (4.4-11.0)
--- NOTE | 2023-10-23 09:35 | CT_ITS ---
STUDY: CT ABDOMEN AND PELVIS WITH CONTRAST REASON FOR EXAM: Male, 58 years old. Abdominal pain -- IV PO Contrast RADIATION DOSAGE (If Supplied By Facility): CTDIvol = ( 21.87 ) mGy, DLP = ( 5.70 ) mGycm TECHNIQUE: Transaxial images were obtained from the dome of the diaphragm to the symphysis pubis with oral contrast. ml of Gastrografin and amp; 100mL Isovue-370 contrast was administered. Sagittal and coronal images were reconstructed. Individualized dose optimization techniques were used for this CT. COMPARISON: CT of abdomen and pelvis dated August 31, 2023 FINDINGS: Moderate atelectasis is present in the right lower lobe with a trace pleural effusion. Minimal dependent atelectasis and trace pleural fluid is also present in the base of the left lower lobe. These findings were not present on the prior CT of abdomen and pelvis dated August 31, 2023. There is decreased attenuation of the liver consistent with steatosis. Normal gallbladder and extrahepatic biliary system. There are multiple benign calcified granulomata of the spleen. Normal pancreas. Normal bilateral adrenal glands. There is mild cortical atrophy of the right kidney, consistent with chronic medical renal disease. There is mild cortical atrophy of the left kidney, consistent with chronic medical renal disease. Normal visualized stomach. Normal small intestine. There are multiple colonic diverticula consistent with diverticulosis. The appendix is visualized and appears normal. There is diffuse atherosclerotic calcification of the abdominal aorta, without a demonstrated aneurysm. Normal inferior vena cava. Normal retroperitoneum. The bladder is collapsed around a Campbell catheter and balloon. A small amount of air is present in the bladder lumen. There is a small umbilical hernia containing fat and a short segment of the sigmoid colon without incarceration, measuring 6.43 cm in diameter, unchanged from the prior study. There are diffuse degenerative changes of the visualized lumbar spine. Stable right hip prosthesis spinal hardware. Decubitus ulcers are present posterior to the right hip and inferior pubic ramus with small amounts of subcutaneous air and subcutaneous edema but no discrete abscess is present. No active cortical erosion or bony destruction is seen to suggest osteomyelitis. CT/Abdomen/Pelvis WITH Contrast IMPRESSION: 1. Moderate right lower lobe atelectasis and a small pleural effusion 2. Colonic diverticulosis 3. There is a small umbilical hernia containing fat and a short segment of the sigmoid colon without incarceration, measuring 6.43 cm in diameter, unchanged from the prior study. 4. Decubitus ulcers are present posterior to the right hip and inferior pubic ramus with small amounts of subcutaneous air and subcutaneous edema but no discrete abscess is present. No active cortical erosion or bony destruction is seen to suggest osteomyelitis. Electronically Signed: Jewel Greer MD at 10:03 EDT ,
== END 2023-10-23 13:18 | disposition home or self-care (01) ==
PROVIDERS: Emergency Provider Emergency Medicine; PCP Internal Medicine; Visit Provider Emergency Medicine
DX: N39.0 Urinary tract infection, site not specified (principal); G82.20 Paraplegia, unspecified; E11.9 Type 2 diabetes mellitus without complications; Z79.4 Long term (current) use of insulin; Z87.891 Personal history of nicotine dependence; R10.9 Unspecified abdominal pain; I10 Essential (primary) hypertension; Z79.899 Other long term (current) drug therapy; Z22.359 Carrier of Enterobacterales, unspecified; B96.4 Proteus (mirabilis) (morganii) as the cause of diseases classified elsewhere
CPT/HCPCS: 74177; 80053; 83605; 83690; 85025; 87040; 96374; 96375; 96376; 99283; Q9967; J2405

== ENCOUNTER → 2023-10-24 | Outpatient (REF) | payer OTHER, MEDICAID, SELFPAY ==
[2023-10-24 06:47] LABS: Absolute Lymphocyte Count 1.48 X10^3/uL (0.83-4.51); Absolute Neutrophil Count 12.1 X10^3/uL (2.0-7.7); Basophil# 0.03 X10^3/uL; Basophil% 0.2 % (0-1); Eosinophil# 0.13 X10^3/uL; Eosinophils% 0.9 % (0-5); Hematocrit 30.7 % (40-54); Hemoglobin 8.2 g/dL (13.0-16.5); Lymphocyte # 1.48 X10^3/ul (0.83-4.51); Lymphocyte % 9.8 % (19-41); Mean Corp Hgb Conc 26.7 g/dL (32-36); Mean Corpuscular Volume 78.5 fL (80-94); Mean Platelet Vol. 9.3 fl (6.2-12.0); Monocyte# 1.34 X10^3/uL; Monocyte% 8.8 % (0-10); NRBC Flagged by Analyzer 0 % (0-5); Neutrophil # 12.11 X10^3/uL (2.7-7.7); Neutrophil % 79.8 % (47-70); Platelet Count 388 K/mm3 (150-450); RBC Distribution Width CV 19.8 % (11.6-14.6); Red Blood Count 3.91 M/mm3 (4.6-6.2); White Blood Count 15.2 K/mm3 (4.4-11.0)
[2023-10-24 07:29] LABS: Anion Gap 6 (5-15); BUN 18 mg/dL (7-18); BUN/Creat Ratio 23.4 RATIO (10-20); Calcium,Total 9.1 mg/dL (8.5-10.1); Chloride 100 mmol/L (98-107); Creatinine, Serum 0.77 mg/dL (0.70-1.30); EST Glomerular Filtration Rate 111 mL/min (>60); Est Glom Filt Rate - Afr Amer 135 mL/min (>60); Glucose 201 mg/dL (74-106); Potassium 4.1 mmol/L (3.5-5.1); Sodium Level 133 mmol/L (136-145)
== END ==
LOC: OLS.WHLTCC 05:00
PROVIDERS: PCP Internal Medicine; Visit Provider Internal Medicine
DX: E11.9 Type 2 diabetes mellitus without complications (principal)
CPT/HCPCS: 36415; 80048; 85025

== ENCOUNTER 2023-10-25 05:23 | Emergency (ER) | payer OTHER, SELFPAY ==
[2023-10-25] VITALS (11 sets, daily range): BP systolic 116–137; BP diastolic 60–78; PULSE 20–115; RESP 17–20; TEMP 36.3–37.7; O2SAT 77–95; BMI 49.1
--- NOTE | 2023-10-25 05:33 | RAD_ITS ---
EXAM: XR CHEST, 1 VIEW CLINICAL INDICATION: chest pain chest pain TECHNIQUE: Frontal view of the chest. COMPARISON: Chest x-ray 07/29/2023. FINDINGS: LUNGS AND PLEURAL SPACES: There is infiltration of the lower lung fuentes bilaterally, right greater than left. Small right pleural effusion is likely. Findings are worsened from previous chest x-ray. No pneumothorax. HEART: Unremarkable. Cardiac silhouette not enlarged. MEDIASTINUM: Central airways and mediastinal contour are unremarkable. BONES/JOINTS: There are postsurgical changes in the lumbar spine and visualized lower thoracic spine. No acute fracture. SOFT TISSUES: Unremarkable. RAD/Chest 1 View (Portable) IMPRESSION: Bilateral pulmonary infiltrates and right pleural effusion, with interval worsening. Electronically Signed: Cali Fagan MD at 6:49 EDT Reading Location ID and State: [facility] / [place] , Service support ,
--- NOTE | 2023-10-25 05:33 | EKG12_ITS ---
Test Reason : DYSRHYTHMIA Blood Pressure : / mmHG Vent. Rate : 110 BPM Atrial Rate : 110 BPM P-R Int : 172 ms QRS Dur : 148 ms QT Int : 354 ms P-R-T Axes : 041 -79 016 degrees QTc Int : 479 ms Sinus tachycardia Left axis deviation Right bundle branch block Possible Lateral infarct , age undetermined Abnormal ECG Confirmed by Jd Alcantara ([id number]), editor department DIANE ARIAS ([id number]) on 10/26/2023 8:43:42 AM Referred By: JAMES Confirmed By:Jd Alcantara
--- NOTE | 2023-10-25 05:40 | ED.VIS.DYS ---
HPI History of Present Illness Chief Complaint: Shortness of Breath Informant: patient and EMS Onset/Context/Timing Onset: Today Current Severity: Mild Maximum Severity: Mild Associated Symptoms Chest Pain: Positive for None Narrative Narrative: 58-year-old male history of chronic anemia, bilateral pulmonary emboli a year ago, paraplegia from a fall, lymphedema, diabetes, chronic anticoagulation on Eliquis. He denies being any more short of breath than his baseline. Reportedly at the extended care facility where he resides his pulse ox was in the mid to high 70s tonight. PE Risk Factors: Positive for Prior DVT or PE and Recent immobilization; Negative for Cancer, OCP + Smoking + > 35, Recent surgery or Recent travel Prior similar symptoms: Yes Recent Illness/Hospitalization: Yes [facility] Medical History Chronic indwelling Campbell catheter Blood loss anemia Clot retention of urine Pressure injury, unstageable, with eschar Bilateral pulmonary embolism Rhabdomyolysis Community acquired pneumonia Hypoglycemia Acute osteomyelitis of spine Former tobacco use Paraplegia Lymphedema Cellulitis of leg without foot, right Anemia BMI greater than 40 BATOOL treated with BiPAP Type 2 diabetes mellitus HTN (hypertension) H/o back surgery Home Medications ?Medication ?Instructions ?Recorded ?Last Taken ?Type fluticasone propionate 50 1 spray intranasal DAILY shortness 03/03/20 Unknown History mcg/actuation nasal of breath spray,suspension (Flonase Allergy Relief) apixaban 5 mg tablet (Eliquis) 5 mg PO DAILY 07/29/23 08/31/23 History docusate sodium 100 mg capsule 100 mg PO QHS 07/29/23 08/31/23 History (Colace) gabapentin 100 mg capsule 100 mg PO QHS 07/29/23 08/31/23 History insulin glargine 100 unit/mL 24 unit subcut DAILY diabetes 07/29/23 08/31/23 History subcutaneous solution (Lantus mellitus type 2 U-100 Insulin) insulin lispro 100 unit/mL 8 unit subcut TID 07/29/23 08/31/23 History subcutaneous solution methocarbamol 500 mg tablet 1,000 mg PO TID PRN cramps 07/29/23 08/31/23 History polyethylene glycol 3350 17 17 g PO DAILY 07/29/23 07/29/23 History gram/dose oral powder (ClearLax) pantoprazole 40 mg tablet,delayed 40 mg PO DAILY 08/31/23 08/31/23 History release acetaminophen 325 mg tablet 650 mg (2 x 325 mg) PO Q4H PRN PRN 09/13/23 Unknown Rx Fever, pain 1-02/22 #0 tabs aluminum-mag hydroxide-simethicone 30 ml PO Q6H PRN PRN Gastric 09/13/23 Unknown Rx 400 mg-400 mg-40 mg/5 mL oral susp Burning #0 mL (Mag-Al Plus Extra Strength) amlodipine 10 mg tablet 10 mg PO DAILY #0 tabs 09/13/23 Unknown Rx benzonatate 100 mg capsule 100 mg PO TID PRN PRN 09/13/23 Unknown Rx COUGH/CONGESTION #0 caps carvedilol 12.5 mg tablet 12.5 mg PO BIDCM #0 tabs 09/13/23 Unknown Rx diphenhydramine HCl 25 mg capsule 25 mg PO TID PRN PRN Itching #0 09/13/23 Unknown Rx (Banophen) caps guaifenesin 1,200 mg tablet, 1,200 mg PO BID #0 tabs 09/13/23 Unknown Rx extended release 12 hr (Mucus Relief ER) melatonin 3 mg tablet 3 mg PO QHS PRN PRN Insomnia #0 09/13/23 Unknown Rx tabs morphine 30 mg tablet,extended 30 mg PO Q12H 2 days #4 tabs 09/13/23 Unknown Rx release oxycodone 10 mg tablet 10 mg PO 4X/DAY PRN pain 2 days #8 09/13/23 Unknown Rx tabs peg [id number] 1 1 drp EACH EYE BID #0 mL 09/13/23 Unknown Rx %-0.2 %-0.2 % eye drops (Artificial Tears ([id number])) albuterol sulfate 2.5 mg/0.5 mL 2.5 mg inhalation BID 10/15/23 Unknown History solution for nebulization amino acids-protein hydrolysate 15 30 ml PO BID 10/15/23 Unknown History gram-100 kcal/30 mL oral liquid (Pro-Stat Sugar Free) polysaccharide iron complex 150 mg 150 mg PO DAILY 10/15/23 Unknown History iron capsule (Ferrex) sennosides 8.6 mg-docusate sodium 2 tab PO QHS Constipation 10/15/23 Unknown History 50 mg tablet (Stool Softener-Stimulant Laxative) insulin lispro 100 unit/mL See Protocol subcut ACHS 10/23/23 Unknown History subcutaneous pen (Humalog KwikPen (U-100) Insulin) loratadine 10 mg tablet 10 mg PO DAILY 10/23/23 Unknown History (Allerclear) nitrofurantoin 100 mg PO Q12 #14 CAPSULES 10/23/23 Unknown Rx monohydrate/macrocrystals 100 mg capsule sulfamethoxazole 800 1 tab PO BID #14 TABLETS 10/23/23 Unknown Rx mg-trimethoprim 160 mg tablet furosemide 20 mg tablet 20 mg PO DAILY 10/25/23 Unknown History Allergy/AdvReac Type Severity Reaction Status Date / Time No Known Allergies Allergy Verified 10/25/23 05:24 Family History Mother Hypertension Hypotension Diabetes Arthritis Father Hypertension Hypotension Heart disease Status post double vessel coronary artery bypass angina Arthritis Grandfather Prostate cancer Grandmother Uterine cancer Surgical History Hx of spinal surgery H/O sinus surgery Social History household members: other details: parents housing: prison current occupational status: employed and retired Smoking Status: Former smoker alcohol intake: never substance use type: does not use do you feel safe at home: Yes ROS ROS ED ROS Narrative Patient denies being any more short of breath than his baseline. However had a low pulse ox at [facility] despite being on 6 L oxygen. Review of Systems ROS Unobtainable: Denies due to encephalopathy Constitutional Constitutional ED: Reports other Details: Patient states that he always feels warm and usually uses a fan. ; Denies chills Eyes Eyes: Denies blurry vision ENT ENT ED: Denies ear pain Cardiovascular Cardiovascular: Denies chest pain Respiratory/Chest Respiratory/Chest: Denies cough Gastrointestinal Gastrointestinal: Denies abdominal pain, constipation, nausea or vomiting Genitourinary Genitourinary ED: Reports other Details: Chronic indwelling Campbell catheter. ; Denies dysuria Musculoskeletal Musculoskeletal: Denies arthralgias Integumentary Denies abscess or Abrasions Neurologic Neurologic: Denies headache(s) Psychiatric Psychiatric: Denies anxiety Endocrine Endocrinology: Denies cold intolerance Hematologic/Lymphatic Hematologic/Lymphatic: Denies lymphadenopathy Allergic/Immunologic Allergic/Immunologic ED: Denies mouth swelling EXAM Physical Exam Narrative Exam Narrative: 58-year-old male sitting upright in bed. Initial vital signs show tachycardia 115. Stable blood pressure. Pulse ox 77% on room air 90% on high flow oxygen 8 L. His initial temporal temperature is 97.3 I thought he felt warm I did my own oral temperature is 99.8. He does not look septic. H EENT exam unremarkable. Neck nontender. Lungs coarse breath sounds in both bases. Heart tachycardic 115. Abdomen is soft, without peritoneal signs or significant tenderness. He has a colostomy bag. With gas and small amount of stool in it. Is a chronic indwelling Campbell catheter. Extremities normal shading painter strength. He has paraplegia in both lower extremities loss of sensation. Neurologically he is awake and alert. Answering questions following commands. Const Vital Signs: 10/25/23 05:24 10/25/23 05:24 10/25/23 05:31 Temperature 97.3 F L 97.3 F L Temperature Source Temporal Temporal Pulse Rate 115 H 115 H Respiratory Rate 20 H 20 H Respiratory Effort Normal Non-Labored Respiratory Depth Normal Respiratory Pattern Normal Blood Pressure 137/65 H 137/65 H Blood Pressure Mean 89 89 Pulse Ox 77 90 Oxygen Delivery Method Room Air Nasal Cannula High Flow Oxygen Flow Rate (L/min) 6 8 10/25/23 05:33 10/25/23 06:21 10/25/23 06:31 Temperature 99.8 F H Temperature Source Oral Pulse Rate 103 H Respiratory Rate 20 H Respiratory Effort Respiratory Depth Respiratory Pattern Blood Pressure 116/62 Blood Pressure Mean 80 Pulse Ox 90 92 92 Oxygen Delivery Method High Flow High Flow High Flow Oxygen Flow Rate (L/min) 8 10 10 10/25/23 06:59 10/25/23 06:59 10/25/23 07:00 Temperature 99.3 F H Temperature Source Oral Pulse Rate 103 H 99 Respiratory Rate 17 18 Respiratory Effort Respiratory Depth Respiratory Pattern Normal Blood Pressure 116/72 Blood Pressure Mean 86 Pulse Ox 92 91 Oxygen Delivery Method High Flow Nasal Cannula Oxygen Flow Rate (L/min) 5 4 10/25/23 07:00 Temperature Temperature Source Pulse Rate 99 Respiratory Rate 18 Respiratory Effort Respiratory Depth Respiratory Pattern Blood Pressure 116/72 Blood Pressure Mean 86 Pulse Ox 91 Oxygen Delivery Method Nasal Cannula Oxygen Flow Rate (L/min) 4 Positive well nourished, well developed and obese; Negative for cachectic or contractures General Appearance ED: well developed, NAD and pallor; Negative for cachectic or contractures Nutritional Appearance: obese; Negative for cachectic HEENT Reports moist mucous membranes atraumatic; Negative for trauma or tenderness Eyes PERRL and EOMs intact bilaterally General Eye ED: Yes pale conjunctiva; Negative for scleral icterus Neck no lymphadenopathy, supple, no meningeal signs and no JVD General: Negative for tenderness Lymph Lymphatic: Negative for other Resp normal respiratory effort and No clear to auscultation bilaterally Resp Narrative: Bilateral lower extremity course breath sounds with scattered rhonchi. Effort and Inspection: Negative for pain with movement Auscultation: rhonchi; Negative for rales or wheezes Cardio regular rhythm, S1 normal heart sound, S2 normal heart sound and no murmurs; Negative for regular rate Rate: tachycardic GI non-tender, non-distended and no masses Inspection: Negative for other Auscultation: normoactive bowel sounds Palpation: soft; Negative for tender, guarding or rebound tenderness present Back/Spine no CVA tenderness and normal to inspection General Back: Negative for CVA tenderness Extremity Negative for normal to inspection Extremity Narrative: Bilateral lower extremity paraplegia with loss of sensation. No movement. General Extremety ED: Negative for tenderness Neuro oriented x3 Sensorium / Orientation: alert, oriented to person, oriented to place and oriented to time; Negative for orientation impaired, confused, lethargic or stuporous Speech: speech normal Gait (Neuro): Negative for normal gait Motor Exam: strength abnormal; Negative for strength 5/5 throughout Psych mental status grossly normal Attitude: No agitated Mood & Affect: Negative for depressed, anxious or tearful Thought Process: normal thought process Skin no wounds General Skin Exam: pallor; Negative for jaundice Lesions: no lesions Rashes: no rashes Trauma: Negative for abrasion or laceration MDM MDM MDM Narrative Medical decision making narrative: 58-year-old male sent in from extended-care facility for low pulse ox of 77%. He is on chronic anticoagulation Eliquis due to prior PEs. He states has been taking Eliquis and has not missed dosages. He has a low-grade elevated temperature 99.8. I will go through an infectious workup for possible pneumonia versus sepsis versus other etiologies. Repeat exam patient is doing well at 6:50 AM. He had I went over his test results really is no significant change from prior labs. We do not have any specific source of infection. He got a normal white count. He is a chronic anemia. Chronic hyponatremia. His urine has some white cells and bacteria in it but has had that before with a chronic indwelling Campbell catheter I will await the urine culture results. I turned his oxygen down from 10-4 will see what his pulse ox does not give him a DuoNeb aerosol. Currently I do not have a specific diagnosis or reason admitted to the hospital. Currently patient is doing well at 7:14 AM. On 4 L his pulse ox is still 92% or better. He had some improvement with the DuoNeb aerosol. I have a call out to his extended care facility to speak with them. Currently I believe he is on antibiotics being treated for a UTI. I have attempted to call as has higher Emergency executive secretary and we have been unable to get a hold of anybody at the patient's extended care facility. We have left messages also have not received a call back. History & Record Review Discussion w/independent historian: Patient Additional record(s) reviewed:: Prior inpatient record, Prior outpatient record, Prior ED visit and Prior labs Lab Data Attestation: I reviewed the patient's lab results. Lab results narrative: CBC shows a normal white count 10.8. H&H is 7.9 and 28.3. He has a chronic anemia with a hemoglobin typically around 8. Platelets are 360,000. Electrolytes show a sodium of 131. Gap 3. Normal BUN of 18 and creatinine 0.8. Glucose 219. Lactic acid is normal at 1.1. Troponin is normal at 6. Labs are consistent with his baseline prior labs. Urinalysis shows no nitrates. No red cells. 50-100 white cells with 2+ bacteria. Consistent with a recent UA who is culture grew out several bacteria. I would wait for the urine culture return on this 1 decide if it needs to be treated. He has a chronic indwelling Campbell catheter. COVID, RSV and influenza swab is negative. Labs: Laboratory Results - last 24 hr 10/25/23 10/25/23 05:50 06:04 WBC 10.8 RBC 3.70 L Hgb 7.9 L Hct 28.3 L MCV 76.5 L MCH 21.4 L MCHC 27.9 L RDW Std Deviation 53.9 H RDW Coeff of Mary 19.3 H Plt Count 360 MPV 8.7 Immature Gran % (Auto) 0.600 Neut % (Auto) 80.8 H Lymph % (Auto) 10.1 L [place] % (Auto) 6.7 Eos % (Auto) 1.5 Baso % (Auto) 0.3 Absolute Neuts (auto) 8.8 H Absolute Lymphs (auto) 1.09 Nucleated RBC % 0 Sodium 131 L Potassium 4.3 Chloride 99 Carbon Dioxide 29.0 Anion Gap 3 L BUN 18 Creatinine 0.86 Estim Creat Clear Calc 131.07 Est GFR (MDRD) Af Amer 119 Est GFR (MDRD) Non-Af 98 BUN/Creatinine Ratio 21.0 H Glucose 219 H Lactic Acid 1.1 Calcium 8.8 Troponin I High Sens 6 Urine Color Yellow Urine Clarity Cloudy Urine pH 5.0 Ur Specific [place] 1.020 Urine Protein 100 H Urine Glucose (UA) Normal Urine Ketones Negative Urine Occult Blood 150 H Urine Nitrite Negative Urine Bilirubin Negative Urine Urobilinogen Normal Ur Leukocyte Esterase 500 H Urine RBC 0-5 SEEN Urine WBC 50-100 SEEN Ur Squamous Epith Cells 0 SEEN Urine Bacteria 2+ Urine Mucus 0 SEEN Radiography Chest X-Ray - ED: 1 View, Read by ED Physician, Normal, Heart, Lungs, Mediastinum, Bony Structures, No Acute Disease, Chronic Changes and - (Poor inspiratory effort on first film. Repeat second film slightly improved. No obvious acute abnormality.) Diagnostic Testing: Clinical Impression(s) from Imaging Studies Chest X-Ray 10/25/23 05:33 IMPRESSION: Bilateral pulmonary infiltrates and right pleural effusion, with interval worsening. Electronically Signed: Cali Fagan MD at 6:49 EDT , Chest X-Ray 10/25/23 06:27 IMPRESSION: Redemonstration of pulmonary infiltrates and pleural effusions and lower lung fuentes. No significant interval change. Electronically Signed: Cali Fagan MD at 7:23 EDT , Chest x-ray, portable, single view, interpreted by myself shows very poor inspiratory effort. Cannot rule out infiltrate or pneumonia. Possible bilateral pleural effusions. Chronic metallic spinal rods. Due to the poor respiratory effort it is difficult to ascertain good data from the film. A second chest x-ray was obtained due to the poor inspiratory effort of the first. It was slightly improved. No obvious infiltrates seen. Rhythm Strip Rhythm Strip: Sinus Tach Rate: 110 Ectopy: None EKG Initial EKG: Attestation: I personally reviewed and interpreted this EKG as follows: Interpretation: No Acute Injury Pattern and Sinus Tachycardia Comments: Sinus tachycardia rate of 110. Right bundle branch block. No acute signs of NE or ischemia. Discharge Plan Triage Chief Complaint: Shortness of Breath ED Provider: Ranjan Mistry Dx/Rx/DC Orders Clinical Impression: Hypoxia, History of paraplegia, Chronic anticoagulation, History of diabetes mellitus, History of pulmonary embolism Instructions: ED Dyspnea Prescriptions: No Action fluticasone propionate [Flonase Allergy Relief] 50 mcg/actuation spray,suspension 1 spray INTRANASAL DAILY Patient Comments: takes in once in awhile Rx Instructions: administer into each nostril pantoprazole 40 mg tablet,delayed release (DR/EC) 40 mg PO DAILY melatonin 3 mg Tablet 3 mg PO QHS PRN PRN (Reason: Insomnia) Qty: 0 0RF alum-mag hydroxide-simeth [Mag-Al Plus Extra Strength] 400-400-40 mg/5 mL Suspension 30 ml PO Q6H PRN PRN (Reason: Gastric Burning) Qty: 0 0RF Artificial Tears([id number]) 1-0.2-0.2 % Drops 1 drp EACH EYE BID Qty: 0 0RF guaifenesin [Mucus Relief ER] 1,200 mg Tablet Extended Release 12hr 1,200 mg PO BID Qty: 0 0RF acetaminophen 325 mg Tablet 650 mg PO Q4H PRN PRN (Reason: Fever, pain 1-10) Qty: 0 0RF carvedilol 12.5 mg Tablet 12.5 mg PO BIDCM Qty: 0 0RF amlodipine 10 mg Tablet 10 mg PO DAILY Qty: 0 0RF benzonatate 100 mg Capsule 100 mg PO TID PRN PRN (Reason: COUGH/CONGESTION) Qty: 0 0RF diphenhydramine HCl [Banophen] 25 mg Capsule 25 mg PO TID PRN PRN (Reason: Itching) Qty: 0 0RF morphine 30 mg tablet extended release 30 mg PO Q12H 2 Days Qty: 4 0RF oxycodone 10 mg tablet 10 mg PO 4X/DAY PRN (Reason: pain) 2 Days Qty: 8 0RF albuterol sulfate 2.5 mg/0.5 mL solution for nebulization 2.5 mg inhalation BID Pro-Stat Sugar Free 15-100 gram-kcal/30 mL liquid 30 ml PO BID polysaccharide iron complex [Ferrex 150] 150 mg iron Capsule 150 mg PO DAILY sennosides-docusate sodium [Stool Softener-Stimulant Laxat] 8.6-50 mg Tablet 2 tab PO QHS furosemide 20 mg tablet 20 mg PO DAILY methocarbamol 500 mg tablet 1,000 mg PO TID PRN (Reason: cramps) gabapentin 100 mg capsule 100 mg PO QHS Eliquis 5 mg tablet 5 mg PO DAILY insulin glargine [Lantus U-100 Insulin] 100 unit/mL solution 24 unit subcut DAILY insulin lispro 100 unit/mL solution 8 unit subcut TID Patient Comments: 8 units in the morning, 8 at noon and 8 units in the evening docusate sodium [Colace] 100 mg capsule 100 mg PO QHS polyethylene glycol 3350 [ClearLax] 17 gram/dose powder 17 g PO DAILY loratadine [Allerclear] 10 mg tablet 10 mg PO DAILY Rx Instructions: am insulin lispro [Humalog KwikPen Insulin] 100 unit/mL Insulin Pen See Protocol subcut ACHS Protocol: 3. Sliding Scale Insulin Med Dosing Condition: 150-189 mg/dl = 1 unit Condition: 190-229 mg/dl = 2 units Condition: 230-269 mg/dl = 3 units Condition: 270-309 mg/dl = 4 units Condition: 310-349 mg/dl = 5 units Condition: 350-399 mg/dl = 6 units Condition: 400-449 mg/dl = 7 units Condition: Greater than 449 call physician Protocol Text: - Use for Total Daily Dose of Insulin 37-55 units - Obsese, infected, or steroid patients MEDIUM DOSING ALGORITHIM Rx Instructions: 8 units sulfamethoxazole-trimethoprim 800-160 mg tablet 1 tab PO BID Qty: 14 0RF nitrofurantoin monohyd/m-cryst 100 mg capsule 100 mg PO Q12 Qty: 14 0RF Primary Care Provider: Rhona Bartlett Referrals: Rhona Bartlett MD [Primary Care Provider] - 1-2 Days if not improving Activity Restrictions/Additional Instructions: No specific findings today. Follow-up with your internist medical doctor md or primary care physician next couple days to be re-evaluated. Print Language: Latvian Disposition Disposition: Home, Self Care
[2023-10-25 06:03] LABS: Absolute Lymphocyte Count 1.09 X10^3/uL (0.83-4.51); Absolute Neutrophil Count 8.8 X10^3/uL (2.0-7.7); Basophil# 0.03 X10^3/uL; Basophil% 0.3 % (0-1); Eosinophil# 0.16 X10^3/uL; Eosinophils% 1.5 % (0-5); Hematocrit 28.3 % (40-54); Hemoglobin 7.9 g/dL (13.0-16.5); Lymphocyte # 1.09 X10^3/ul (0.83-4.51); Lymphocyte % 10.1 % (19-41); Mean Corp Hgb Conc 27.9 g/dL (32-36); Mean Corpuscular Hgb 21.4 pg (27.0-32.0); Mean Corpuscular Volume 76.5 fL (80-94); Mean Platelet Vol. 8.7 fl (6.2-12.0); Monocyte# 0.72 X10^3/uL; Monocyte% 6.7 % (0-10); NRBC Flagged by Analyzer 0 % (0-5); Neutrophil # 8.76 X10^3/uL (2.7-7.7); Neutrophil % 80.8 % (47-70); Platelet Count 360 K/mm3 (150-450); RBC Distribution Width CV 19.3 % (11.6-14.6); RBC Distribution Width SD 53.9 fl (35.1-43.9); White Blood Count 10.8 K/mm3 (4.4-11.0)
[2023-10-25 06:10] LABS: Mucous, Urine 0 SEEN /hpf (<or=2+); Squamous Epithelial Cells - UA 0 SEEN /hpf (0-5)
[2023-10-25 06:16] LABS: Color, Urine Yellow (Yellow); Glucose, Dipstick Normal (Normal); Ketone-Dipstick Negative (Negative); Leukocyte Esterase-Dipstick 500 /ul (Negative); Nitrite-Dipstick Negative (Negative); Occult Blood-Urine 150 /ul (Negative); Protein-Dipstick 100 mg/dl (Negative); Urine Bilirubin Dipstick Negative (Negative); Urine Clarity Cloudy (Clear); Urine Urobilinogen Normal (Normal)
[2023-10-25] MEDS: Ondansetron 4 MG/2 ML Vial IV (06:18)
[2023-10-25 06:23] LABS: Anion Gap 3 (5-15); BUN 18 mg/dL (7-18); Calcium,Total 8.8 mg/dL (8.5-10.1); Chloride 99 mmol/L (98-107); Creatinine, Serum 0.86 mg/dL (0.70-1.30); EST Glomerular Filtration Rate 98 mL/min (>60); Est Glom Filt Rate - Afr Amer 119 mL/min (>60); Estimated Creatinine Clearance 131.07 ml/min; Glucose 219 mg/dL (74-106); Potassium 4.3 mmol/L (3.5-5.1); Sodium Level 131 mmol/L (136-145); Troponin-I HS 6 pg/mL (3.0-78.0)
[2023-10-25 06:25] LABS: Lactic Acid 1.1 mmol/L (0.4-1.9)
--- NOTE | 2023-10-25 06:27 | RAD_ITS ---
EXAM: XR CHEST, 1 VIEW CLINICAL INDICATION: Pooor ispiration 1st cxr Pooor ispiration 1st cxr TECHNIQUE: Frontal view of the chest. COMPARISON: Exam done today at 0534 hours. Chest x-ray 07/29/2023. FINDINGS: LUNGS AND PLEURAL SPACES: There are pulmonary infiltrates in the lower lung fuentes bilaterally, probably with a small right pleural effusion. Small left pleural effusion cannot be excluded. No pneumothorax. HEART: Unremarkable. Cardiac silhouette not enlarged. MEDIASTINUM: Central airways and mediastinal contour are unremarkable. BONES/JOINTS: There are postsurgical changes in the visualized lower thoracic spine and lumbar spine. No acute fracture. SOFT TISSUES: Unremarkable. RAD/Chest 1 View (Portable) IMPRESSION: Redemonstration of pulmonary infiltrates and pleural effusions and lower lung fuentes. No significant interval change. Electronically Signed: Cali Fagan MD at 7:23 EDT Reading Location ID and State: [facility] / [place] , Service support ,
[2023-10-25 06:33] LABS: Bacteria 2+ /hpf (None Seen); Red Blood Cells-Urine 0-5 SEEN /hpf (0-5); White Blood Cells 50-100 SEEN /hpf (0-5)
[2023-10-25] MEDS: Ipratropium/Albuterol Sulfate 3 ML AMPUL.NEB INHALATION (06:59)
--- NOTE | 2023-10-25 07:54 | NURSING ---
ETA 1 HR
--- NOTE | 2023-10-25 08:19 | ED.RN ---
Attempted to call report to [facility]. Voicemail reached, call back information left on nurses line.
--- NOTE | 2023-10-25 08:23 | NURSING ---
PHYSICDANIELLE CALLED NEW ETA IS [id number]
--- NOTE | 2023-10-25 10:25 | ED.RN ---
[place] nurse called with concerns regarding patients results. aware and talking to PA from the retirement.
== END 2023-10-25 10:33 | disposition home or self-care (01) ==
PROVIDERS: Emergency Provider Emergency Medicine; PCP Internal Medicine; Visit Provider Emergency Medicine
DX: R06.02 Shortness of breath (principal); G82.20 Paraplegia, unspecified; Z93.3 Colostomy status; E11.9 Type 2 diabetes mellitus without complications; Z79.4 Long term (current) use of insulin; R09.02 Hypoxemia; Z87.891 Personal history of nicotine dependence; Z79.01 Long term (current) use of anticoagulants; G47.33 Obstructive sleep apnea (adult) (pediatric); Z99.81 Dependence on supplemental oxygen; I10 Essential (primary) hypertension; Z86.711 Personal history of pulmonary embolism
CPT/HCPCS: 36415; 71045; 80048; 81001; 83605; 84484; 85025; 87040; 87631; 93005; 94640; 96374; 99284; A4216; J2405

== ENCOUNTER 2023-10-25 17:30 | Inpatient (IN) | payer OTHER, SELFPAY ==
[2023-10-25] VITALS (23 sets, daily range): BP systolic 129–160; BP diastolic 64–90; PULSE 81–115; RESP 11–22; TEMP 36.6–37.9; O2SAT 90–98; BMI 50.2; BMI 48.4
--- NOTE | 2023-10-25 17:57 | CT_ITS ---
STUDY: CTA CHEST REASON FOR EXAM: Male, 58 years old. hypoxia pulmonary embolism RADIATION DOSAGE (If Supplied By Facility): CTDIvol = ( 16.06 ) mGy, DLP = ( 470.27 ) mGycm TECHNIQUE: The examination was performed with the intravenous administration of IV 100mL Isovue-370. Post-processing of the angiographic images was performed, with multiplanar reformation and 3D reconstruction. Individualized dose optimization techniques were used for this CT. The protocol utilizes one or more of the following dose reduction techniques: automated exposure control, adjustment of mA and/or kV according to patient size,and/or use of iterative reconstruction technique. COMPARISON: Chest x-ray from today. CT chest February 01, 2023.. FINDINGS: 22 mm peripherally calcified mass left thyroid lobe. Normal enhancement of the main pulmonary artery and right and left pulmonary arteries. Normal enhancement of the bilateral peripheral pulmonary arteries. There is no demonstrated pulmonary embolism. Normal thoracic aorta and visualized great vessels. There is no demonstrated aortic dissection. Cardiomegaly. There are visualized mediastinal lymph nodes, which are within normal size limits, and with normal morphology. Normal hilar regions. Normal visualized trachea and bronchi. Right greater than left airspace disease. Normal pulmonary parenchyma. Loculated moderate right pleural effusion. Normal chest wall structures. Severe compression fracture T9 with gas unchanged. Anterior subluxation T9-10 with moderately severe angulation. Posterior fusion rods and pedicular screws T10-T11 and T12 extending below the field of view into the lumbar spine. Normal visualized upper abdomen. CT/CTA Chest W/WO Contrast IMPRESSION: Increased Right greater than left airspace disease and loculated right pleural effusion. Compression fracture T9 and anterior angulation and subluxation unchanged. Stable 22 mm left thyroid lesion. Recommend follow-up nonemergent thyroid ultrasound if not already performed. Electronically Signed: Juan Mtz MD at 19:25 EDT ,
--- NOTE | 2023-10-25 17:58 | EKG12_ITS ---
Test Reason : SOB Blood Pressure : / mmHG Vent. Rate : 111 BPM Atrial Rate : 111 BPM P-R Int : 178 ms QRS Dur : 146 ms QT Int : 356 ms P-R-T Axes : 043 -77 006 degrees QTc Int : 484 ms Sinus tachycardia Left axis deviation Right bundle branch block Possible Lateral infarct , age undetermined Abnormal ECG Confirmed by Jd Alcantara ([id number]), editorial project manager DIANE ARIAS ([id number]) on 10/26/2023 9:05:19 AM Referred By: Confirmed By:Jd Alcantara
[2023-10-25] MEDS: 0.9% Normal Saline (1000mL) 1,000 ML 150 ML IV (18:07)
[2023-10-25 18:09] LABS: Absolute Lymphocyte Count 1.61 X10^3/uL (0.83-4.51); Basophil# 0.02 X10^3/uL; Basophil% 0.2 % (0-1); Eosinophil# 0.19 X10^3/uL; Eosinophils% 1.6 % (0-5); Hematocrit 30.7 % (40-54); Hemoglobin 8.4 g/dL (13.0-16.5); Lymphocyte # 1.61 X10^3/ul (0.83-4.51); Lymphocyte % 13.5 % (19-41); Mean Corp Hgb Conc 27.4 g/dL (32-36); Mean Corpuscular Hgb 21.3 pg (27.0-32.0); Mean Corpuscular Volume 77.9 fL (80-94); Mean Platelet Vol. 9.3 fl (6.2-12.0); Monocyte# 1.04 X10^3/uL; Monocyte% 8.7 % (0-10); NRBC Flagged by Analyzer 0 % (0-5); Neutrophil # 8.98 X10^3/uL (2.7-7.7); Neutrophil % 75.5 % (47-70); Platelet Count 404 K/mm3 (150-450); RBC Distribution Width CV 19.1 % (11.6-14.6); RBC Distribution Width SD 54.1 fl (35.1-43.9); Red Blood Count 3.94 M/mm3 (4.6-6.2); White Blood Count 11.9 K/mm3 (4.4-11.0)
[2023-10-25 18:10] LABS: International Normalized Ratio 1.5; Prothrombin Time (Protime)PT. 17.9 SECONDS (11.7-14.9)
[2023-10-25 18:11] LABS: Partial Thromboplast Time 51.7 Seconds (24.1-36.2)
[2023-10-25] MEDS: Ipratropium/Albuterol Sulfate 3 ML AMPUL.NEB INHALATION (18:11)
[2023-10-25 18:13] LABS: POSITIVE COUNT NO; POSITIVE DIFFERENTIAL NO; POSITIVE MORPHOLOGY NO
[2023-10-25 18:18] LABS: Lactic Acid 1.2 mmol/L (0.4-1.9)
[2023-10-25 18:21] LABS: AST(SGOT) 15 U/L (15-37); Alanine Aminotransfer ALT/SGPT 16 U/L (16-61); Albumin, Serum 2.5 g/dL (3.2-5.0); Alkaline Phosphatase 120 U/L (45-117); Anion Gap 4 (5-15); BUN 19 mg/dL (7-18); BUN/Creat Ratio 21.4 RATIO (10-20); Bilirubin, Direct 0.17 mg/dL (0.00-0.30); Calcium,Total 8.8 mg/dL (8.5-10.1); Chloride 98 mmol/L (98-107); Creatinine, Serum 0.89 mg/dL (0.70-1.30); EST Glomerular Filtration Rate 94 mL/min (>60); Est Glom Filt Rate - Afr Amer 114 mL/min (>60); Estimated Creatinine Clearance 128.23 ml/min; Globulin 5.5 g/dL (2.2-4.2); Glucose 202 mg/dL (74-106); Potassium 4.5 mmol/L (3.5-5.1); Sodium Level 131 mmol/L (136-145); Troponin-I HS 6 pg/mL (3.0-78.0)
[2023-10-25 18:41] LABS: BNP,B-Type NATRIURETIC PEPTIDE 27.3 pg/mL (0-100)
[2023-10-25] MEDS: Meropenem 1 GM in 0.9% Normal Saline (100mL MB+) 100 ML IV (19:46)
--- NOTE | 2023-10-25 20:35 | CPS ---
decreased fio2 to 40%
--- NOTE | 2023-10-25 20:39 | ED.VIS.DYS ---
HPI History of Present Illness Chief Complaint: Shortness of Breath Informant: patient and EMS Narrative Narrative: 58-year-old male paraplegic from fall history of diabetes. Patient has recently been in the emergency department a couple times diagnosed with UTI. Culture came back with polymicrobial and ESBL E. coli. Patient had increased oxygen demand and was seen in the emergency department last night was felt to have a small pleural effusion and possible pneumonia. He was discharged back to shelter. alf called up and said that they were having difficulty getting his oxygen saturations up. And that he was being sent back to the hospital. There was a plan for placing a PICC line for outpatient antibiotics. He is a full code. He is anticoagulated on Eliquis. [facility] Medical History Chronic indwelling Campbell catheter Blood loss anemia Clot retention of urine Pressure injury, unstageable, with eschar Bilateral pulmonary embolism Rhabdomyolysis Community acquired pneumonia Hypoglycemia Acute osteomyelitis of spine Former tobacco use Paraplegia Lymphedema Cellulitis of leg without foot, right Anemia BMI greater than 40 BATOOL treated with BiPAP Type 2 diabetes mellitus HTN (hypertension) H/o back surgery Home Medications ?Medication ?Instructions ?Recorded ?Last Taken ?Type fluticasone propionate 50 1 spray intranasal DAILY shortness 03/03/20 Unknown History mcg/actuation nasal of breath spray,suspension (Flonase Allergy Relief) apixaban 5 mg tablet (Eliquis) 5 mg PO DAILY 07/29/23 08/31/23 History docusate sodium 100 mg capsule 100 mg PO QHS 07/29/23 08/31/23 History (Colace) gabapentin 100 mg capsule 100 mg PO BID 07/29/23 08/31/23 History insulin glargine 100 unit/mL 24 unit subcut DAILY diabetes 07/29/23 08/31/23 History subcutaneous solution (Lantus mellitus type 2 U-100 Insulin) insulin lispro 100 unit/mL 8 unit subcut TID 07/29/23 08/31/23 History subcutaneous solution methocarbamol 500 mg tablet 1,000 mg PO TID PRN cramps 07/29/23 08/31/23 History polyethylene glycol 3350 17 17 g PO DAILY 07/29/23 07/29/23 History gram/dose oral powder (ClearLax) pantoprazole 40 mg tablet,delayed 40 mg PO DAILY 08/31/23 08/31/23 History release acetaminophen 325 mg tablet 650 mg (2 x 325 mg) PO Q4H PRN PRN 09/13/23 Unknown Rx Fever, pain 1-02/22 #0 tabs aluminum-mag hydroxide-simethicone 30 ml PO Q6H PRN PRN Gastric 09/13/23 Unknown Rx 400 mg-400 mg-40 mg/5 mL oral susp Burning #0 mL (Mag-Al Plus Extra Strength) amlodipine 10 mg tablet 10 mg PO DAILY #0 tabs 09/13/23 Unknown Rx benzonatate 100 mg capsule 100 mg PO TID PRN PRN 09/13/23 Unknown Rx COUGH/CONGESTION #0 caps carvedilol 12.5 mg tablet 12.5 mg PO BIDCM #0 tabs 09/13/23 Unknown Rx diphenhydramine HCl 25 mg capsule 25 mg PO TID PRN PRN Itching #0 09/13/23 Unknown Rx (Banophen) caps guaifenesin 1,200 mg tablet, 1,200 mg PO BID #0 tabs 09/13/23 Unknown Rx extended release 12 hr (Mucus Relief ER) melatonin 3 mg tablet 3 mg PO QHS PRN PRN Insomnia #0 09/13/23 Unknown Rx tabs morphine 30 mg tablet,extended 30 mg PO Q12H 2 days #4 tabs 09/13/23 Unknown Rx release oxycodone 10 mg tablet 10 mg PO 4X/DAY PRN pain 2 days #8 09/13/23 Unknown Rx tabs peg [id number] 1 1 drp EACH EYE BID #0 mL 09/13/23 Unknown Rx %-0.2 %-0.2 % eye drops (Artificial Tears ([id number])) polysaccharide iron complex 150 mg 150 mg PO DAILY 10/15/23 Unknown History iron capsule (Ferrex) sennosides 8.6 mg-docusate sodium 2 tab PO QHS Constipation 10/15/23 Unknown History 50 mg tablet (Stool Softener-Stimulant Laxative) insulin lispro 100 unit/mL See Protocol subcut ACHS 10/23/23 Unknown History subcutaneous pen (Humalog KwikPen (U-100) Insulin) loratadine 10 mg tablet 10 mg PO DAILY 10/23/23 Unknown History (Allerclear) albuterol sulfate 2.5 mg/3 mL 2.5 mg inhalation BID 10/25/23 Unknown History (0.083 %) solution for nebulization naloxone 4 mg/actuation nasal 4 mg intranasal Q3M PRN overdose 10/25/23 Unknown History spray (Narcan) nutrition tx glu 118 ml PO TID 10/25/23 Unknown History intol,lac-free,soy-fiber 0.07 gram-0.8 kcal/mL liquid (Boost Glucose Control) oxycodone 15 mg tablet 10 mg PO Q6H PRN pain 10/25/23 Unknown History Allergy/AdvReac Type Severity Reaction Status Date / Time No Known Allergies Allergy Verified 10/25/23 05:24 Family History Mother Hypertension Hypotension Diabetes Arthritis Father Hypertension Hypotension Heart disease Status post double vessel coronary artery bypass angina Arthritis Grandfather Prostate cancer Grandmother Uterine cancer Surgical History Hx of spinal surgery H/O sinus surgery Social History household members: other details: parents housing: shelter current occupational status: employed and retired Smoking Status: Former smoker alcohol intake: never substance use type: does not use do you feel safe at home: Yes ROS ROS ED Constitutional Constitutional ED: Denies chills, fever(s) or weight loss Eyes Eyes: Denies change in vision or diplopia ENT ENT ED: Denies ear pain, rhinorrhea or sore throat Cardiovascular Cardiovascular: Denies chest pain, orthopnea, palpitations or racing heartbeat Respiratory/Chest Respiratory/Chest: Reports cough and dyspnea; Denies orthopnea Gastrointestinal Gastrointestinal: Reports abdominal pain; Denies diarrhea, nausea or vomiting Genitourinary Genitourinary ED: Denies dysuria, hematuria or urinary frequency Musculoskeletal Musculoskeletal: Denies arthralgias or myalgias Integumentary Denies abscess or rash Neurologic Neurologic: Denies headache(s) or weakness Psychiatric Psychiatric: Denies anxiety, depression, suicidal ideation or suicidal thoughts Endocrine Endocrinology: Denies polydipsia, polyphagia or polyuria Allergic/Immunologic Allergic/Immunologic ED: Denies mouth swelling, tongue swelling or urticaria EXAM Physical Exam Narrative Exam Narrative: While awake the patient is on high flow nasal cannula and satting in the mid to low 90s. When he falls asleep his oxygen level drops into the 70s. He is supposed to wear CPAP while sleeping. Const Vital Signs: 10/25/23 17:31 10/25/23 17:35 10/25/23 17:36 Temperature 98 F Temperature Source Oral Pulse Rate 115 H Respiratory Rate 20 H Respiratory Effort Short of Breath Respiratory Pattern Tachypnea Blood Pressure 160/90 H Blood Pressure Mean 113 Pulse Ox 93 91 Oxygen Delivery Method Non-Rebreather Non-Rebreather Nasal Cannula Oxygen Flow Rate (L/min) 15 12 12 Fraction of Inspired Oxygen (FIO2) 10/25/23 17:43 10/25/23 18:01 10/25/23 18:12 Temperature Temperature Source Pulse Rate 81 111 H Respiratory Rate 18 16 Respiratory Effort Respiratory Pattern Normal Blood Pressure 131/71 H Blood Pressure Mean 91 Pulse Ox 93 Oxygen Delivery Method Nasal Cannula Room Air Oxygen Flow Rate (L/min) 12 Fraction of Inspired Oxygen (FIO2) 10/25/23 18:12 10/25/23 18:43 10/25/23 18:48 Temperature 98 F Temperature Source Oral Pulse Rate 98 102 H Respiratory Rate 22 H 20 H Respiratory Effort Respiratory Pattern Blood Pressure 136/78 H 136/67 H Blood Pressure Mean 97 90 Pulse Ox 95 90 98 Oxygen Delivery Method High Flow Nasal Cannula Nasal Cannula Oxygen Flow Rate (L/min) 12 12 12 Fraction of Inspired Oxygen (FIO2) 10/25/23 19:00 10/25/23 19:15 10/25/23 19:29 Temperature Temperature Source Pulse Rate 109 H 110 H Respiratory Rate 15 19 H Respiratory Effort Respiratory Pattern Blood Pressure 152/68 H 150/69 H Blood Pressure Mean 93 92 Pulse Ox 90 93 Oxygen Delivery Method Oxygen Flow Rate (L/min) Fraction of Inspired Oxygen (FIO2) 50 10/25/23 19:30 10/25/23 19:45 10/25/23 19:56 Temperature 98 F Temperature Source Oral Pulse Rate 109 H 108 H 105 H Respiratory Rate 13 14 12 Respiratory Effort Respiratory Pattern Blood Pressure 160/64 H 139/72 H 139/72 H Blood Pressure Mean 89 88 94 Pulse Ox 93 96 96 Oxygen Delivery Method CPAP Oxygen Flow Rate (L/min) Fraction of Inspired Oxygen (FIO2) 50 10/25/23 20:00 10/25/23 20:06 10/25/23 20:15 Temperature 98.9 F 98.0 F Temperature Source Oral Temporal Pulse Rate 105 H 106 H Respiratory Rate 11 L 13 Respiratory Effort Respiratory Pattern Blood Pressure 131/68 H 131/68 H Blood Pressure Mean 87 89 Pulse Ox 96 98 Oxygen Delivery Method Oxygen Flow Rate (L/min) Fraction of Inspired Oxygen (FIO2) 40 10/25/23 20:15 10/25/23 20:30 10/25/23 20:45 Temperature Temperature Source Pulse Rate 105 H 103 H 104 H Respiratory Rate 22 H 15 12 Respiratory Effort Respiratory Pattern Blood Pressure 134/76 H 129/72 H 135/71 H Blood Pressure Mean 91 87 91 Pulse Ox 96 96 95 Oxygen Delivery Method Oxygen Flow Rate (L/min) Fraction of Inspired Oxygen (FIO2) 10/25/23 21:00 10/25/23 21:15 10/25/23 21:19 Temperature 99 F 98.9 F Temperature Source Oral Pulse Rate 104 H 105 H 104 H Respiratory Rate 11 L 12 19 H Respiratory Effort Respiratory Pattern Blood Pressure 135/77 H 141/81 H 138/75 H Blood Pressure Mean 90 94 96 Pulse Ox 96 94 94 Oxygen Delivery Method Oxygen Flow Rate (L/min) Fraction of Inspired Oxygen (FIO2) Positive well nourished, well developed and obese General Appearance ED: well developed and NAD Nutritional Appearance: obese HEENT Reports normocephalic, head/scalp atraumatic and moist mucous membranes Eyes PERRL and EOMs intact bilaterally Neck no lymphadenopathy, supple and no JVD Resp normal respiratory effort Auscultation: diminished lung sounds bilateral Cardio regular rate, regular rhythm and no murmurs Rate: tachycardic GI normal to inspection, nondistended, normoactive bowel sounds and non-tender Palpation: soft Back/Spine no CVA tenderness and normal ROM Extremity General Extremety ED: Yes edema General Extremity: edema bilateral lower extremity Details: mild Neuro oriented x3 and CN's II-XII intact bilaterally Sensorium / Orientation: alert Psych mental status grossly normal Mood & Affect: Negative for depressed or tearful Skin no rashes or lesions noted Skin Narrative: Decubitus ulcers present MDM MDM MDM Narrative Medical decision making narrative: Differential diagnosis includes but not limited to pneumonia pleural effusion unlikely but pulmonary embolism ACS sepsis UTI renal failure dehydration ACS. White count 11.9 hemoglobin 8.4 INR 1.5 PTT 51.7. Creatinine is 0.89 with a BUN of 19 glucose 202 lactic acid normal at 1.2. Troponin of 6 alk phos 120. CTA with no pulmonary embolism on radiology read. There is a moderate right pleural effusion with right greater than left airspace disease. Stable compression fracture. Patient received gentle hydration a DuoNeb as well as meropenem and vancomycin. He was given CPAP for when he is sleeping high flow nasal cannula for when he is awake. The plan is going to be admission into the hospital. History & Record Review Discussion w/independent historian: EMS personnel and Patient Additional record(s) reviewed:: Prior inpatient record, Prior ED visit and Prior labs Lab Data Attestation: I reviewed the patient's lab results. Labs: Laboratory Results - last 24 hr 10/25/23 17:40 WBC 11.9 H RBC 3.94 L Hgb 8.4 L Hct 30.7 L MCV 77.9 L MCH 21.3 L MCHC 27.4 L RDW Std Deviation 54.1 H RDW Coeff of Mary 19.1 H Plt Count 404 MPV 9.3 Immature Gran % (Auto) 0.500 Neut % (Auto) 75.5 H Lymph % (Auto) 13.5 L [place] % (Auto) 8.7 Eos % (Auto) 1.6 Baso % (Auto) 0.2 Absolute Neuts (auto) 9.0 H Absolute Lymphs (auto) 1.61 Nucleated RBC % 0 PT 17.9 H INR 1.5 APTT 51.7 H Sodium 131 L Potassium 4.5 Chloride 98 Carbon Dioxide 29.0 Anion Gap 4 L BUN 19 H Creatinine 0.89 Estim Creat Clear Calc 128.23 Est GFR (MDRD) Af Amer 114 Est GFR (MDRD) Non-Af 94 BUN/Creatinine Ratio 21.4 H Glucose 202 H Lactic Acid 1.2 Calcium 8.8 Total Bilirubin 0.30 Direct Bilirubin 0.17 AST 15 ALT 16 Alkaline Phosphatase 120 H Troponin I High Sens 6 B-Natriuretic Peptide 27.3 Total Protein 8.0 Albumin 2.5 L Globulin 5.5 H Radiography Diagnostic Testing: Clinical Impression(s) from Imaging Studies Chest CTA 10/25/23 17:57 IMPRESSION: Increased Right greater than left airspace disease and loculated right pleural effusion. Compression fracture T9 and anterior angulation and subluxation unchanged. Stable 22 mm left thyroid lesion. Recommend follow-up nonemergent thyroid ultrasound if not already performed. Electronically Signed: Juan Mtz MD at 19:25 EDT , Management Discussion w/another healthcare provider: Hospitalist (Dr. Price) Discharge Plan Dx/Rx/DC Orders Clinical Impression: Pneumonia, Hypoxia, Pleural effusion, Acute UTI, Type 2 diabetes mellitus, History of paraplegia Disposition Disposition: Acute Care Hospital [facility] Discharge Date/Time: 10/25/23 22:31
[2023-10-25] MEDS: Vancomycin HCl 2,000 MG in 0.9% Normal Saline (500mL Bag) 500 ML 250 MG IV (20:54)
--- NOTE | 2023-10-25 21:04 | PCM.HP.STD ---
HPI - General General Date of Admission: 10/25/23 Date of Service: 10/25/23 Chief Complaint: Worsening hypoxia and chest tightness HPI Narrative MELISSA ELIAS, is a 58 M who presented to [facility] ED on 10/25/2023 from senior living facility for worsening hypoxia and chest tightness. Patient seen at bedside in the ED. Did appear somewhat flushed in the face and was requiring 12 L of high flow nasal cannula to maintain oxygen saturations in the low 90s. He was breathing comfortably on that amount of oxygen. Patient was initially hospitalized here from 08/30-09/13/23. History is significant for paraplegic status after L1 injury and urinary retention with chronic indwelling Campbell catheter. He presented on that admission with hematuria and blood clots in the Campbell catheter. That hospitalization was complicated by need for cystoscopy x 2 with clot removal and fulguration of bleeding, acute on chronic anemia requiring transfusion, and acute complicated UTI. Patient was eventually discharged to [facility] on 09/12. He reportedly was doing well until coming to the ED again from SNF on 10/14 for worsening urinary retention and concern for recurrent blood clots. The catheter was able to be flushed and patient was discharged from ED back to SNF on antibiotics for suspected recurrent UTI. He again was sent to the ED on 10/22 with worsening abdominal pain. CT imaging was fairly benign but it was noted that his urine culture from 10/14 was growing ESBL E. coli, and apparently his antibiotics had not been started so he was initiated on Macrobid and Bactrim. He was again sent to the ED on the morning of 10/24 with worsening shortness of breath and hypoxia. Chest x-ray showed an appearance new right lower lobe infiltrate but patient was nonseptic appearing and his labs were relatively unchanged. Was also noted that he is on Eliquis so PE was less likely. Thus, he was sent back to the facility. He presented again to the ED on the evening of 10/24 with worsening hypoxia and new onset mild fevers. CTA chest was obtained and showed a loculated moderate right pleural effusion. Hospitalist was then contacted for admission. Vitals in ED notable for significant hypoxia with patient requiring 12 L high flow nasal cannula with oxygen saturations in the low 90s; also notable for sinus tachycardia in the 100s to 110s and low-grade fevers. CBC with WBC count 11.9, hemoglobin 8.4 (at baseline), otherwise unremarkable. BMP with sodium 131 (at baseline), creatinine 0.89 (at baseline), otherwise unremarkable. Lactate 1.2. LFTs unremarkable. COVID/flu/RSV negative. Notably blood cultures from 10/22 show no growth at 48 hours. [facility] Medical History Chronic indwelling Campbell catheter Blood loss anemia Clot retention of urine Pressure injury, unstageable, with eschar Bilateral pulmonary embolism Rhabdomyolysis Community acquired pneumonia Hypoglycemia Acute osteomyelitis of spine Former tobacco use Paraplegia Lymphedema Cellulitis of leg without foot, right Anemia BMI greater than 40 BATOOL treated with BiPAP Type 2 diabetes mellitus HTN (hypertension) H/o back surgery Home Medications ?Medication ?Instructions ?Recorded ?Last Taken ?Type fluticasone propionate 50 1 spray intranasal DAILY shortness 03/03/20 Unknown History mcg/actuation nasal of breath spray,suspension (Flonase Allergy Relief) apixaban 5 mg tablet (Eliquis) 5 mg PO DAILY 07/29/23 08/31/23 History docusate sodium 100 mg capsule 100 mg PO QHS 07/29/23 08/31/23 History (Colace) gabapentin 100 mg capsule 100 mg PO BID 07/29/23 08/31/23 History insulin glargine 100 unit/mL 24 unit subcut DAILY diabetes 07/29/23 08/31/23 History subcutaneous solution (Lantus mellitus type 2 U-100 Insulin) insulin lispro 100 unit/mL 8 unit subcut TID 07/29/23 08/31/23 History subcutaneous solution methocarbamol 500 mg tablet 1,000 mg PO TID PRN cramps 07/29/23 08/31/23 History polyethylene glycol 3350 17 17 g PO DAILY 07/29/23 07/29/23 History gram/dose oral powder (ClearLax) pantoprazole 40 mg tablet,delayed 40 mg PO DAILY 08/31/23 08/31/23 History release acetaminophen 325 mg tablet 650 mg (2 x 325 mg) PO Q4H PRN PRN 09/13/23 Unknown Rx Fever, pain 1-1010 #0 tabs aluminum-mag hydroxide-simethicone 30 ml PO Q6H PRN PRN Gastric 09/13/23 Unknown Rx 400 mg-400 mg-40 mg/5 mL oral susp Burning #0 mL (Mag-Al Plus Extra Strength) amlodipine 10 mg tablet 10 mg PO DAILY #0 tabs 09/13/23 Unknown Rx benzonatate 100 mg capsule 100 mg PO TID PRN PRN 09/13/23 Unknown Rx COUGH/CONGESTION #0 caps carvedilol 12.5 mg tablet 12.5 mg PO BIDCM #0 tabs 09/13/23 Unknown Rx diphenhydramine HCl 25 mg capsule 25 mg PO TID PRN PRN Itching #0 09/13/23 Unknown Rx (Banophen) caps guaifenesin 1,200 mg tablet, 1,200 mg PO BID #0 tabs 09/13/23 Unknown Rx extended release 12 hr (Mucus Relief ER) melatonin 3 mg tablet 3 mg PO QHS PRN PRN Insomnia #0 09/13/23 Unknown Rx tabs morphine 30 mg tablet,extended 30 mg PO Q12H 2 days #4 tabs 09/13/23 Unknown Rx release oxycodone 10 mg tablet 10 mg PO 4X/DAY PRN pain 2 days #8 09/13/23 Unknown Rx tabs peg [id number] 1 1 drp EACH EYE BID #0 mL 09/13/23 Unknown Rx %-0.2 %-0.2 % eye drops (Artificial Tears ([id number])) polysaccharide iron complex 150 mg 150 mg PO DAILY 10/15/23 Unknown History iron capsule (Ferrex) sennosides 8.6 mg-docusate sodium 2 tab PO QHS Constipation 10/15/23 Unknown History 50 mg tablet (Stool Softener-Stimulant Laxative) insulin lispro 100 unit/mL See Protocol subcut ACHS 10/23/23 Unknown History subcutaneous pen (Humalog KwikPen (U-100) Insulin) loratadine 10 mg tablet 10 mg PO DAILY 10/23/23 Unknown History (Allerclear) albuterol sulfate 2.5 mg/3 mL 2.5 mg inhalation BID 10/25/23 Unknown History (0.083 %) solution for nebulization naloxone 4 mg/actuation nasal 4 mg intranasal Q3M PRN overdose 10/25/23 Unknown History spray (Narcan) nutrition tx glu 118 ml PO TID 10/25/23 Unknown History intol,lac-free,soy-fiber 0.07 gram-0.8 kcal/mL liquid (Boost Glucose Control) oxycodone 15 mg tablet 10 mg PO Q6H PRN pain 10/25/23 Unknown History Allergy/AdvReac Type Severity Reaction Status Date / Time No Known Allergies Allergy Verified 10/25/23 05:24 Family History Mother Hypertension Hypotension Diabetes Arthritis Father Hypertension Hypotension Heart disease Status post double vessel coronary artery bypass angina Arthritis Grandfather Prostate cancer Grandmother Uterine cancer Surgical History Hx of spinal surgery H/O sinus surgery Social History household members: other details: parents housing: alf current occupational status: employed and retired Smoking Status: Former smoker alcohol intake: never substance use type: does not use do you feel safe at home: Yes ROS Constitutional Constitutional: Reports chills, fatigue, fever(s) and malaise; Denies weakness Eyes Eyes: Denies change in vision ENT HEENT: Denies nasal congestion or sore throat Cardiovascular Cardiovascular: Reports chest pain; Denies palpitations Respiratory/Chest Respiratory/Chest: Reports cough and shortness of breath at rest; Denies productive cough or wheezing Gastrointestinal Gastrointestinal: Denies abdominal pain, constipation, diarrhea, nausea or vomiting Musculoskeletal Musculoskeletal: Denies arthralgias Neurologic Neurologic: Denies focal weakness or headache(s) Vital Signs Vital Signs Vital Signs: 10/25/23 17:31 10/25/23 17:35 10/25/23 17:36 Temperature 98 F Temperature Source Oral Pulse Rate 115 H Respiratory Rate 20 H Respiratory Effort Short of Breath Respiratory Pattern Tachypnea Blood Pressure 160/90 H Blood Pressure Mean 113 Pulse Ox 93 91 Oxygen Delivery Method Non-Rebreather Non-Rebreather Nasal Cannula Oxygen Flow Rate (L/min) 15 12 12 Fraction of Inspired Oxygen (FIO2) 10/25/23 17:43 10/25/23 18:01 10/25/23 18:12 Temperature Temperature Source Pulse Rate 81 111 H Respiratory Rate 18 16 Respiratory Effort Respiratory Pattern Normal Blood Pressure 131/71 H Blood Pressure Mean 91 Pulse Ox 93 Oxygen Delivery Method Nasal Cannula Room Air Oxygen Flow Rate (L/min) 12 Fraction of Inspired Oxygen (FIO2) 10/25/23 18:12 10/25/23 18:43 10/25/23 18:48 Temperature 98 F Temperature Source Oral Pulse Rate 98 102 H Respiratory Rate 22 H 20 H Respiratory Effort Respiratory Pattern Blood Pressure 136/78 H 136/67 H Blood Pressure Mean 97 90 Pulse Ox 95 90 98 Oxygen Delivery Method High Flow Nasal Cannula Nasal Cannula Oxygen Flow Rate (L/min) 12 12 12 Fraction of Inspired Oxygen (FIO2) 10/25/23 19:29 10/25/23 19:56 10/25/23 20:06 Temperature 98 F 98.0 F Temperature Source Oral Temporal Pulse Rate 110 H 105 H 106 H Respiratory Rate 19 H 12 13 Respiratory Effort Respiratory Pattern Blood Pressure 139/72 H 131/68 H Blood Pressure Mean 94 89 Pulse Ox 93 96 98 Oxygen Delivery Method CPAP Oxygen Flow Rate (L/min) Fraction of Inspired Oxygen (FIO2) 50 50 10/25/23 20:15 Temperature Temperature Source Pulse Rate Respiratory Rate Respiratory Effort Respiratory Pattern Blood Pressure Blood Pressure Mean Pulse Ox Oxygen Delivery Method Oxygen Flow Rate (L/min) Fraction of Inspired Oxygen (FIO2) 40 Weight Weight: 145.4 kg Body Mass Index (BMI) 50.2 Physical Exam Const alert, oriented x3 and no apparent distress Constitutional Narrative: Pleasant middle-age male, morbidly obese, mildly flushed appearing, otherwise sitting up comfortably in bed, conversing normally, in no acute distress. General Appearance: cooperative and comfortable HEENT normocephalic, head/scalp atraumatic, hearing grossly normal bilaterally and nasal mucous membranes and turbinates normal Eyes PERRL, EOMs intact bilaterally and conjunctivae normal Neck full ROM Chest inspection of chest normal Resp normal respiratory effort and no use of accessory muscles Resp Narrative: Breathing comfortably on 12 L high flow nasal cannula with oxygen saturations in the low 90s. Good air movement in left lung but moderately decreased breath sounds in right midlung to lung base. No wheezing or crackles noted. Cardio no murmurs and peripheral pulses 2+ throughout Cardio Narrative: Sinus tachycardia. GI normal to inspection, nondistended, normoactive bowel sounds, soft to palpation, non-tender and non-distended Extremity normal to inspection and no pedal edema Skin no rashes or lesions noted Neuro Speech: speech normal Psych mental status grossly normal Results Lab / Micro Data 10/25/23 17:40 10/25/23 17:40 Labs: Laboratory Results - last 24 hr 10/25/23 17:40: WBC 11.9 H, RBC 3.94 L, Hgb 8.4 L, Hct 30.7 L, MCV 77.9 L, MCH 21.3 L, MCHC 27.4 L, RDW Std Deviation 54.1 H, RDW Coeff of Mary 19.1 H, Plt Count 404, MPV 9.3, Immature Gran % (Auto) 0.500, Neut % (Auto) 75.5 H, Lymph % (Auto) 13.5 L, [place] % (Auto) 8.7, Eos % (Auto) 1.6, Baso % (Auto) 0.2, Absolute Neuts (auto) 9.0 H, Absolute Lymphs (auto) 1.61, Nucleated RBC % 0, PT 17.9 H, INR 1.5, APTT 51.7 H, Sodium 131 L, Potassium 4.5, Chloride 98, Carbon Dioxide 29.0, Anion Gap 4 L, BUN 19 H, Creatinine 0.89, Estim Creat Clear Calc 128.23, Est GFR (MDRD) Af Amer 114, Est GFR (MDRD) Non-Af 94, BUN/Creatinine Ratio 21.4 H, Glucose 202 H, Lactic Acid 1.2, Calcium 8.8, Total Bilirubin 0.30, Direct Bilirubin 0.17, AST 15, ALT 16, Alkaline Phosphatase 120 H, Troponin I High Sens 6, B-Natriuretic Peptide 27.3, Total Protein 8.0, Albumin 2.5 L, Globulin 5.5 H Imaging Radiology Impression Chest CTA 10/25/23 17:57 IMPRESSION: Increased Right greater than left airspace disease and loculated right pleural effusion. Compression fracture T9 and anterior angulation and subluxation unchanged. Stable 22 mm left thyroid lesion. Recommend follow-up nonemergent thyroid ultrasound if not already performed. Electronically Signed: Juan Mtz MD at 19:25 EDT Reading Location ID and State: [facility] / [place] Tel , Service support , Assessment & Plan Assessment/Plan (1) Acute hypoxic respiratory failure: (2) Pneumonia: (3) Loculated pleural effusion: PLAN: Plan Patient is a 58-year-old male who presented to [facility] ED on 10/25/2023 from SNF for worsening hypoxia and chest tightness. 1. Acute hypoxic respiratory failure secondary to pneumonia with loculated right pleural effusion ? Admit under inpatient status to PCU. Pulmonology consulted. Will treat with IV vancomycin and meropenem for now given need to continue treating complicated UTI as noted below. COVID/flu/RSV negative. Sputum culture, blood cultures, urine antigens ordered. Held Eliquis doses on evening of 10/24 and morning of 10/25 in case of need for chest tube placement. Wean supplemental oxygen as able for goal SpO2 greater than 90%. Continue scheduled guaifenesin and as needed benzonatate for symptom management. Continue home albuterol as needed. 2. Recent complicated UTI in setting of chronic indwelling Campbell catheter ? Urine culture from 10/14 grew ESBL E. coli, Klebsiella and Proteus. Was apparently not initiated on antibiotics until 10/22. UA on 10/24 with 500 leukocyte esterase, negative nitrites, 2+ bacteria. Treating with IV vancomycin and meropenem as noted above. 3. Paraplegic status secondary to L1 injury with acute on chronic debility ? PT/OT/case management consulted. Has been residing at [facility] since previous discharge on 09/12, will likely return there on this discharge. 4. Chronic unstageable pressure ulcers of bilateral buttocks ? Noted during previous hospitalization. Wound care consulted. 5. Recent history of bladder outlet obstruction secondary to recurrent hematuria with clots ? See discharge summary from 09/12 for further details. Hemoglobin currently stable and no issues with hematuria or clots at this time. Chronic medical conditions: ? Morbid obesity: BMI 48 on admit. Complicates hospital course, care and prognosis. ? BATOOL: Continue nocturnal BiPAP. ? Chronic anemia: Hemoglobin 8.4 on admit, at baseline. Monitor. ? Hypertension: Stable. Continue home amlodipine and carvedilol. ? Type 2 diabetes mellitus with neuropathy: Home regimen of Lantus 24 units daily, lispro 8 units plus sliding scale insulin with meals. Glucose 202 on admit. Will continue home regimen, adjust as needed. Continue home gabapentin. ? Chronic pain syndrome: Continue home oxycodone, oral morphine and gabapentin. ? History of DVT/PE: Continue home Eliquis. ? Chronic constipation: Continue home bowel regimen. ? GERD: Continue home PPI. ? Chronic lower extremity edema: Continue Surya wraps. ? History of tobacco abuse: Encouraged continued cessation. DVT prophylaxis: Eliquis CODE STATUS: Full code, verified Expected disposition: Back to [facility] [place] Total clinical time spent by myself addressing the patient's medical issues, reviewing all the data, and collaborating with patient's care team: 75 minutes. Charges/Coding Visit Charges Inpatient E&M: 11881 Init Hosp L3
[2023-10-25] MEDS: morphine SR 15 MG Tablet 30 MG PO (23:33)
[2023-10-25] MEDS: guaiFENesin 1,200 MG Tablet 1200 MG PO (23:33)
[2023-10-25] MEDS: Senna/Docusate Sodium 1 Tablet 2 TABLET PO (23:33)
[2023-10-25] MEDS: Docusate Sodium 100 MG Capsule PO (23:34)
[2023-10-25] MEDS: Glycerin/Hypromellose/PEG400 15 ml Bottle 1 DRP EACH EYE (23:34)
[2023-10-25] MEDS: Gabapentin 100 MG Capsule PO (23:34)
--- NOTE | 2023-10-25 23:56 | PCM.RX.CS ---
Consult Antibiotic Management Pharmacy has been consulted to manage selected antibiotic: Vancomycin Type of Intervention Type of Consult: New start Labs Labs: Sodium 131 mmol/L (136-145) L 10/25/23 17:40 Potassium 4.5 mmol/L (3.5-5.1) 10/25/23 17:40 Chloride 98 mmol/L (98-107) 10/25/23 17:40 Carbon Dioxide 29.0 mmol/L (21.0-32.0) 10/25/23 17:40 Anion Gap 4 (5-15) L 10/25/23 17:40 BUN 19 mg/dL (7-18) H 10/25/23 17:40 Creatinine 0.89 mg/dL (0.70-1.30) 10/25/23 17:40 Est GFR (MDRD) Af Amer 114 mL/min (>60) 10/25/23 17:40 Est GFR (MDRD) Non-Af 94 mL/min (>60) 10/25/23 17:40 BUN/Creatinine Ratio 21.4 RATIO (10-20) H 10/25/23 17:40 Glucose 202 mg/dL (74-106) H 10/25/23 17:40 Dosing Weight Weight used for dosin kg Estimated Creatinine Clearance Estimated Creatinine Clearance: 128 Goal Trough Goal Trough: 15-20 mcg/mL Pharmacy Plan for Drug Dosing Pharmacy Plan for Drug Dosing: Pharmacy Service will continue to monitor and adjust dosing as required. Follow-Up Labs Follow-Up Labs: Trough: Vancomycin Date/Time Labs Ordered Labs to be done on [date and time ordered]: 10/26/23 @2030
[2023-10-26] VITALS (28 sets, daily range): BP systolic 105–153; BP diastolic 59–86; PULSE 86–140; RESP 12–24; TEMP 36.6–37.1; O2SAT 92–99
[2023-10-26] MEDS: oxyCODONE 5 MG Tablet 10 MG PO ×4 (00:52→19:36)
[2023-10-26] MEDS: Vancomycin HCl 1,500 MG in 0.9% Normal Saline (500mL Bag) 500 ML 250 MG IV ×2 (04:16→12:37)
[2023-10-26 06:25] LABS: Hematocrit 28.5 % (40-54); Hemoglobin 7.6 g/dL (13.0-16.5); Mean Corp Hgb Conc 26.7 g/dL (32-36); Mean Corpuscular Hgb 20.8 pg (27.0-32.0); Mean Corpuscular Volume 77.9 fL (80-94); Mean Platelet Vol. 9.3 fl (6.2-12.0); Platelet Count 368 K/mm3 (150-450); RBC Distribution Width CV 19.1 % (11.6-14.6); RBC Distribution Width SD 54.7 fl (35.1-43.9); Red Blood Count 3.66 M/mm3 (4.6-6.2); White Blood Count 9.2 K/mm3 (4.4-11.0)
[2023-10-26 06:40] LABS: Anion Gap 5 (5-15); BUN 15 mg/dL (7-18); BUN/Creat Ratio 23.3 RATIO (10-20); Calcium,Total 8.5 mg/dL (8.5-10.1); Chloride 101 mmol/L (98-107); Creatinine, Serum 0.64 mg/dL (0.70-1.30); EST Glomerular Filtration Rate 137 mL/min (>60); Est Glom Filt Rate - Afr Amer 165 mL/min (>60); Estimated Creatinine Clearance 174.53 ml/min; Glucose 168 mg/dL (74-106); Potassium 3.9 mmol/L (3.5-5.1); Sodium Level 133 mmol/L (136-145)
[2023-10-26] MEDS: Meropenem 2 GM in 0.9% Normal Saline (100mL Bag) 100 ML IV ×3 (06:40→20:56)
[2023-10-26 07:05] LABS: Bedside Glucose 148 mg/dL (74-106)
[2023-10-26] MEDS: Albuterol 2.5 MG/3 ML VIAL.NEB. INHALATION ×2 (07:45→19:13)
[2023-10-26 08:00] LABS: ALB/GLOB Ratio 0.4 RATIO (0.9-2.4); Globulin 5.2 g/dL (2.2-4.2); LDH 164 U/L (87-241); Protein, Total 7.5 g/dL (6.4-8.2)
--- NOTE | 2023-10-26 08:01 | PN.HOSP_ITS ---
Reason for Visit Reason for Visit: Diagnoses Pneumonia, unspecified organism (10/25/23) Pleural effusion, not elsewhere classified (10/25/23) Acute respiratory failure with hypoxia (10/25/23) Subjective Subjective Increased oxygen requirements going from high-flow oxygen to BiPAP. Objective Data Objective Data Vital Signs: Vital Signs Temp Pulse Resp BP Pulse Ox O2 Del Method O2 Flow Rate 36.8 C 94 16 130/77 H 93 High Flow 13 10/26/23 06:43 10/26/23 07:55 10/26/23 07:55 10/26/23 06:43 10/26/23 07:55 10/26/23 07:50 10/26/23 07:50 FiO2 45 10/26/23 07:55 Oxygen Flow Rate (L/min) 13 Oxygen Delivery Method High Flow Weight: 140.2 kg Body Mass Index (BMI) 48.4 Intake & Output: Intake and Output for Last 24 Hours 10/24/23 10/25/23 10/26/23 23:59 23:59 23:59 Intake Total 1660 / 1660 Output Total 700 / 700 500 / 500 Balance 960 / 960 -500 / -500 Lab / Micro Data 10/26/23 05:45 10/26/23 05:45 Labs: Laboratory Results - last 24 hr 10/25/23 17:40: WBC 11.9 H, RBC 3.94 L, Hgb 8.4 L, Hct 30.7 L, MCV 77.9 L, MCH 21.3 L, MCHC 27.4 L, RDW Std Deviation 54.1 H, RDW Coeff of Mary 19.1 H, Plt Count 404, MPV 9.3, Immature Gran % (Auto) 0.500, Neut % (Auto) 75.5 H, Lymph % (Auto) 13.5 L, [place] % (Auto) 8.7, Eos % (Auto) 1.6, Baso % (Auto) 0.2, Absolute Neuts (auto) 9.0 H, Absolute Lymphs (auto) 1.61, Nucleated RBC % 0, PT 17.9 H, INR 1.5, APTT 51.7 H, Sodium 131 L, Potassium 4.5, Chloride 98, Carbon Dioxide 29.0, Anion Gap 4 L, BUN 19 H, Creatinine 0.89, Estim Creat Clear Calc 128.23, Est GFR (MDRD) Af Amer 114, Est GFR (MDRD) Non-Af 94, BUN/Creatinine Ratio 21.4 H, Glucose 202 H, Lactic Acid 1.2, Calcium 8.8, Total Bilirubin 0.30, Direct Bilirubin 0.17, AST 15, ALT 16, Alkaline Phosphatase 120 H, Troponin I High Sens 6, B-Natriuretic Peptide 27.3, Total Protein 8.0, Albumin 2.5 L, Globulin 5.5 H 10/26/23 05:45: WBC 9.2, RBC 3.66 L, Hgb 7.6 L, Hct 28.5 L, MCV 77.9 L, MCH 20.8 L, MCHC 26.7 L, RDW Std Deviation 54.7 H, RDW Coeff of Mary 19.1 H, Plt Count 368, MPV 9.3, Sodium 133 L, Potassium 3.9, Chloride 101, Carbon Dioxide 27.0, Anion Gap 5, BUN 15, Creatinine 0.64 L, Estim Creat Clear Calc 174.53, Est GFR (MDRD) Af Amer 165, Est GFR (MDRD) Non-Af 137, BUN/Creatinine Ratio 23.3 H, G lucose 168 H, Calcium 8.5, Lactate Dehydrogenase 164, Total Protein 7.5, G lobulin 5.2 H, Albumin/Globulin Ratio 0.4 L 10/26/23 06:43: POC Glucose 148 H Radiography Diagnostic Testing: Radiology Impression Chest CTA 10/25/23 17:57 IMPRESSION: Increased Right greater than left airspace disease and loculated right pleural effusion. Compression fracture T9 and anterior angulation and subluxation unchanged. Stable 22 mm left thyroid lesion. Recommend follow-up nonemergent thyroid ultrasound if not already performed. Electronically Signed: Juan Mtz MD at 19:25 EDT , Physical Exam Const alert Constitutional Narrative: on BiPAP. tachypneic. Resp Resp Narrative: coarse breath sounds. Cardio regular rate, regular rhythm, S1 normal heart sound and S2 normal heart sound GI normal to inspection, nondistended, normoactive bowel sounds, soft to palpation and non-tender Extremity normal to inspection Neuro Sensorium / Orientation: awake and alert Psych affect normal Assessment & Plan Assessment/Plan (1) Acute hypoxic respiratory failure: (2) Pneumonia: (3) Loculated pleural effusion: PLAN: Plan Acute hypoxic respiratory failure * Worsening * Secondary to pneumonia and pleural effusion * Started n high flow oxygen, since placed on BiPAP. Pneumonia, possible gram-negative * Antibiotics with vancomycin and meropenem * COVID-19, influenza and RSV negative. Strep and Legionella antigens pending. Blood cultures pending. Sputum culture not obtained yet * Pulmonary toilet Pleural effusion * Suspect secondary to pneumonia. Appears to be loculated on CT * DW Dr. Tuttle, recommends TF to tertiary facility for CT surgery * Thoracentesis ordered, but will not be able to be performed until 10/26 since he is on apixaban. * Given patient's worsening status, loculated effusion. I asked pt where he would prefer to be transferred to [facility]. I reached out to [facility] and provided patient information. Recent complicated UTI in setting of chronic indwelling Campbell catheter * Urine culture from 10/14 grew ESBL E. coli, Klebsiella and Proteus. Was apparently not initiated on antibiotics until 10/22. UA on 10/24 with 500 leukocyte esterase, negative nitrites, 2+ bacteria. Treating with IV vancomycin and meropenem as noted above. Paraplegic status secondary to L1 injury with acute on chronic debility * PT/OT/case management consulted. * Has been residing at [facility] since previous discharge on 09/12, will likely return there on this discharge. Chronic unstageable pressure ulcers of bilateral buttocks * Prior to arrival. * Wound care consulted. * Pictures from wound care show large wound. continue wound care. Recent history of bladder outlet obstruction secondary to recurrent hematuria with clots * See discharge summary from 09/12 for further details. Hemoglobin currently stable and no issues with hematuria or clots at this time. Chronic medical conditions: * Obesity Class III: Complicates hospital course, care and prognosis. * BATOOL: Continue nocturnal BiPAP. * Chronic anemia: Hemoglobin 8.4 on admit, at baseline. Monitor. * Hypertension: Stable. Continue home amlodipine and carvedilol. * Type 2 diabetes mellitus with neuropathy: Home regimen of Lantus 24 units daily, lispro 8 units plus sliding scale insulin with meals. Glucose 202 on admit. Will continue home regimen, adjust as needed. Continue home gabapentin. * Chronic pain syndrome: Continue home oxycodone, oral morphine and gabapentin. * History of DVT/PE: Continue home Eliquis. * Chronic constipation: Continue home bowel regimen. * GERD: Continue home PPI. * Chronic lower extremity edema: Continue Surya wraps. * History of tobacco abuse: Encouraged continued cessation. VTE prophylaxis: SCDs CODE STATUS: Full code Charges/Coding Visit Charges Inpatient E&M: 08123 Subs Hosp L3
[2023-10-26] MEDS: Methocarbamol 500 MG Tablet 1000 MG PO (09:02)
[2023-10-26] MEDS: Gabapentin 100 MG Capsule PO ×2 (09:02→22:17)
--- NOTE | 2023-10-26 09:25 | CASEMGMT ---
Tertiary facilities in-network with patient's insurance:[facility], [place], [facility], [facility], [facility], [facility] ([facility]), [facility], and Dipika Bullard DC Planning Asst.
--- NOTE | 2023-10-26 10:03 | CON.PCM.CC_ITS ---
Assessment & Plan Assessment/Plan (1) Acute hypoxic respiratory failure: (2) Loculated pleural effusion: PLAN: Plan RECOMMENDATIONS: 1. Continue supplemental oxygen to maintain saturations at or above 90%. 2. BiPAP therapy with naps and nightly, per outpatient regimen. 3. Broad-spectrum antimicrobials. 4. Proceed with ultrasound-guided thoracentesis 48 hours after last Eliquis administration. IMPRESSIONS: 1. Acute hypoxemic respiratory failure Secondary to bilateral airspace disease with loculated pleural effusion noted on CT imaging. Unfortunately, the patient has been on Eliquis, with last dose being administered yesterday. Therefore, recommend proceeding with thoracentesis when feasible after 48 hours. Depending on the nature of the pleural effusion, the patient may require thoracic surgery evaluation. In the interim, continue supplemental oxygen along with broad-spectrum antimicrobials as ordered, along with supplemental oxygen to maintain saturations at or above 90%. 2. Recent ESBL E. coli UTI. Repeat urinalysis is pending. The patient remains on broad-spectrum antimicrobials as noted above. 3. History of obstructive sleep apnea/baseline paraplegia related to L1 injury/obstructive sleep apnea/chronic pain syndrome/morbid obesity Complicates care, management, recovery and prognosis. Continue supportive measures as noted above along with BiPAP therapy, per outpatient regimen. This note was generated with [employer] dictation software. It may contain incorrect words, spelling, and punctuation that were not noted in checking the note before signing. HPI Consult Data Date of Consult: 10/26/23 HPI Narrative Reason for Consultation: Loculated pleural effusion HPI Narrative: The patient is a 58-year-old male, with a history as outlined below, who presented to the emergency department on October 24 via EMS with shortness of breath. 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 The patient was recently diagnosed with an ESBL E. coli urinary tract source of infection at the beginning of the month. His last dose of Eliquis was yesterday. On presentation to the emergency department, the patient was documented to be afebrile and hemodynamically stable. He was, however, tachycardic and tachypneic, requiring supplemental oxygen to maintain appropriate saturations. Initial laboratory evaluation revealed a white blood cell count of 12,000. Hemoglobin was noted to be 8.4 g/dL. Platelet count was normal. Chemistry profile was notable for a sodium of 131 and normal creatinine. Lactate was within normal limits. CTA chest was obtained and demonstrated no evidence for pulmonary embolism. However, there was bilateral airspace disease along with a loculated right pleural effusion. The patient was placed on broad-spectrum antimicrobials and was admitted to the progressive care unit for further management. [facility] Medical History Chronic indwelling Campbell catheter Blood loss anemia Clot retention of urine Pressure injury, unstageable, with eschar Bilateral pulmonary embolism Rhabdomyolysis Community acquired pneumonia Hypoglycemia Acute osteomyelitis of spine Former tobacco use Paraplegia Lymphedema Cellulitis of leg without foot, right Anemia BMI greater than 40 BATOOL treated with BiPAP Type 2 diabetes mellitus HTN (hypertension) H/o back surgery Home Medications ?Medication ?Instructions ?Recorded ?Last Taken ?Type fluticasone propionate 50 1 spray intranasal DAILY shortness 03/03/20 Unknown History mcg/actuation nasal of breath spray,suspension (Flonase Allergy Relief) apixaban 5 mg tablet (Eliquis) 5 mg PO DAILY 07/29/23 08/31/23 History docusate sodium 100 mg capsule 100 mg PO QHS 07/29/23 08/31/23 History (Colace) gabapentin 100 mg capsule 100 mg PO BID 07/29/23 08/31/23 History insulin glargine 100 unit/mL 24 unit subcut DAILY diabetes 07/29/23 08/31/23 History subcutaneous solution (Lantus mellitus type 2 U-100 Insulin) insulin lispro 100 unit/mL 8 unit subcut TID 07/29/23 08/31/23 History subcutaneous solution methocarbamol 500 mg tablet 1,000 mg PO TID PRN cramps 07/29/23 08/31/23 History polyethylene glycol 3350 17 17 g PO DAILY 07/29/23 07/29/23 History gram/dose oral powder (ClearLax) pantoprazole 40 mg tablet,delayed 40 mg PO DAILY 08/31/23 08/31/23 History release acetaminophen 325 mg tablet 650 mg (2 x 325 mg) PO Q4H PRN PRN 09/13/23 Unknown Rx Fever, pain 1-10 #0 tabs aluminum-mag hydroxide-simethicone 30 ml PO Q6H PRN PRN Gastric 09/13/23 Unknown Rx 400 mg-400 mg-40 mg/5 mL oral susp Burning #0 mL (Mag-Al Plus Extra Strength) amlodipine 10 mg tablet 10 mg PO DAILY #0 tabs 09/13/23 Unknown Rx benzonatate 100 mg capsule 100 mg PO TID PRN PRN 09/13/23 Unknown Rx COUGH/CONGESTION #0 caps carvedilol 12.5 mg tablet 12.5 mg PO BIDCM #0 tabs 09/13/23 Unknown Rx diphenhydramine HCl 25 mg capsule 25 mg PO TID PRN PRN Itching #0 09/13/23 Unknown Rx (Banophen) caps guaifenesin 1,200 mg tablet, 1,200 mg PO BID #0 tabs 09/13/23 Unknown Rx extended release 12 hr (Mucus Relief ER) melatonin 3 mg tablet 3 mg PO QHS PRN PRN Insomnia #0 09/13/23 Unknown Rx tabs morphine 30 mg tablet,extended 30 mg PO Q12H 2 days #4 tabs 09/13/23 Unknown Rx release oxycodone 10 mg tablet 10 mg PO 4X/DAY PRN pain 2 days #8 09/13/23 Unknown Rx tabs peg 780-vfoefiltguxk-ayeeydly 1 1 drp EACH EYE BID #0 mL 09/13/23 Unknown Rx %-0.2 %-0.2 % eye drops (Artificial Tears ([id number])) polysaccharide iron complex 150 mg 150 mg PO DAILY 10/15/23 Unknown History iron capsule (Ferrex) sennosides 8.6 mg-docusate sodium 2 tab PO QHS Constipation 10/15/23 Unknown History 50 mg tablet (Stool Softener-Stimulant Laxative) insulin lispro 100 unit/mL See Protocol subcut ACHS 10/23/23 Unknown History subcutaneous pen (Humalog KwikPen (U-100) Insulin) loratadine 10 mg tablet 10 mg PO DAILY 10/23/23 Unknown History (Allerclear) albuterol sulfate 2.5 mg/3 mL 2.5 mg inhalation BID 10/25/23 Unknown History (0.083 %) solution for nebulization naloxone 4 mg/actuation nasal 4 mg intranasal Q3M PRN overdose 10/25/23 Unknown History spray (Narcan) nutrition tx glu 118 ml PO TID 10/25/23 Unknown History intol,lac-free,soy-fiber 0.07 gram-0.8 kcal/mL liquid (Boost Glucose Control) oxycodone 15 mg tablet 10 mg PO Q6H PRN pain 10/25/23 Unknown History Allergy/AdvReac Type Severity Reaction Status Date / Time No Known Allergies Allergy Verified 10/25/23 05:24 Family History Mother Hypertension Hypotension Diabetes Arthritis Father Hypertension Hypotension Heart disease Status post double vessel coronary artery bypass angina Arthritis Grandfather Prostate cancer Grandmother Uterine cancer Surgical History Hx of spinal surgery H/O sinus surgery Social History household members: other details: parents housing: prison current occupational status: employed and retired Smoking Status: Former smoker alcohol intake: never substance use type: does not use do you feel safe at home: Yes ROS ROS Narrative 10 systems reviewed with pertinent positives as noted in the HPI above. Physical Exam Const alert and no apparent distress Constitutional Narrative: Currently tolerating home BiPAP support. Morbidly obese. General Appearance: cooperative HEENT normocephalic and head/scalp atraumatic Eyes PERRL, EOMs intact bilaterally and conjunctivae normal Neck supple General: trachea midline Chest inspection of chest normal Resp Auscultation: diminished lung sounds; Negative for rales, rhonchi or wheezes Cardio regular rate and regular rhythm GI soft to palpation and non-tender Inspection: ostomy present Extremity no clubbing, cyanosis or edema Skin no rashes or lesions noted Neuro CN's II-XII intact bilaterally and no focal motor deficits Psych cooperative and affect normal Lab / Micro Data 10/26/23 05:45 10/26/23 05:45 Labs: Laboratory Results - last 24 hr 10/25/23 17:40: WBC 11.9 H, RBC 3.94 L, Hgb 8.4 L, Hct 30.7 L, MCV 77.9 L, MCH 21.3 L, MCHC 27.4 L, RDW Std Deviation 54.1 H, RDW Coeff of Mary 19.1 H, Plt Count 404, MPV 9.3, Immature Gran % (Auto) 0.500, Neut % (Auto) 75.5 H, Lymph % (Auto) 13.5 L, [place] % (Auto) 8.7, Eos % (Auto) 1.6, Baso % (Auto) 0.2, Absolute Neuts (auto) 9.0 H, Absolute Lymphs (auto) 1.61, Nucleated RBC % 0, PT 17.9 H, INR 1.5, APTT 51.7 H, Sodium 131 L, Potassium 4.5, Chloride 98, Carbon Dioxide 29.0, Anion Gap 4 L, BUN 19 H, Creatinine 0.89, Estim Creat Clear Calc 128.23, Est GFR (MDRD) Af Amer 114, Est GFR (MDRD) Non-Af 94, BUN/Creatinine Ratio 21.4 H, Glucose 202 H, Lactic Acid 1.2, Calcium 8.8, Total Bilirubin 0.30, Direct Bilirubin 0.17, AST 15, ALT 16, Alkaline Phosphatase 120 H, Troponin I High Sens 6, B-Natriuretic Peptide 27.3, Total Protein 8.0, Albumin 2.5 L, Globulin 5.5 H 10/26/23 05:45: WBC 9.2, RBC 3.66 L, Hgb 7.6 L, Hct 28.5 L, MCV 77.9 L, MCH 20.8 L, MCHC 26.7 L, RDW Std Deviation 54.7 H, RDW Coeff of Mary 19.1 H, Plt Count 368, MPV 9.3, Sodium 133 L, Potassium 3.9, Chloride 101, Carbon Dioxide 27.0, Anion Gap 5, BUN 15, Creatinine 0.64 L, Estim Creat Clear Calc 174.53, Est GFR (MDRD) Af Amer 165, Est GFR (MDRD) Non-Af 137, BUN/Creatinine Ratio 23.3 H, G lucose 168 H, Calcium 8.5, Lactate Dehydrogenase 164, Total Protein 7.5, G lobulin 5.2 H, Albumin/Globulin Ratio 0.4 L 10/26/23 06:43: POC Glucose 148 H Micro: Microbiology 10/26/23 01:40 Urine Catheter - Campbell Legionella Antigen - Final 10/26/23 01:40 Urine Catheter - Campbell Streptococcus pneumoniae Antigen (M - Final Imaging Radiology Impression Chest CTA 10/25/23 17:57 IMPRESSION: Increased Right greater than left airspace disease and loculated right pleural effusion. Compression fracture T9 and anterior angulation and subluxation unchanged. Stable 22 mm left thyroid lesion. Recommend follow-up nonemergent thyroid ultrasound if not already performed. Electronically Signed: Juan Mtz MD at 19:25 EDT , Charges/Coding Visit Charges Inpatient E&M: 04793 Init Hosp L3
[2023-10-26 10:22] LABS: Allen Test Positive; Base Excess 3 mmol/L (-2 to +2); Bicarbonate 28.8 mmol/L (22-26); Blood Gas Specimen Type ART; Comment 24 18; Mode Not entered; O2 Delivery Device BiPAP; PO2 84 mmHG (75-100); RR 12; SITE R Brach; SO2 95 % (95-99); Total Carbon Dioxide 31 mmol/L; pH 7.34 (7.35-7.45)
[2023-10-26] MEDS: morphine SR 15 MG Tablet 30 MG PO ×2 (10:32→21:37)
[2023-10-26] MEDS: Glycerin/Hypromellose/PEG400 15 ml Bottle 1 DRP EACH EYE ×2 (10:33→21:38)
[2023-10-26] MEDS: amLODIPine 10 MG Tablet PO (10:34)
[2023-10-26] MEDS: Pantoprazole Sodium 40 MG Tablet PO (10:34)
[2023-10-26] MEDS: Loratadine 10 MG Tablet PO (10:34)
[2023-10-26] MEDS: guaiFENesin 1,200 MG Tablet 1200 MG PO ×2 (10:34→22:15)
[2023-10-26] MEDS: Iron Polysaccharide Complex 150 MG CAPSULE PO (10:34)
[2023-10-26] MEDS: Carvedilol 12.5 MG Tablet PO ×2 (10:34→16:52)
--- NOTE | 2023-10-26 10:38 | WOUNDNOTE ---
wound photo: sacrum/left buttock
--- NOTE | 2023-10-26 10:39 | WOUNDNOTE ---
wound photo: sacrum/right buttock
--- NOTE | 2023-10-26 11:22 | WOUNDNOTE ---
pt was transferred to ICU. plan is for transfer to [facility] when bed is available. will hold off on ordering a low air loss mattress at this time since the plan is for transfer. patient is on a turn schedule at this time. will reassess need later today.
[2023-10-26] MEDS: Insulin Glargine-YFGN 100 UNIT/ML Pen 24 UNIT SC (12:49)
[2023-10-26] MEDS: Insulin Lispro 100 UNIT/ML INSULN.PEN SC ×2 (12:50→16:52)
[2023-10-26] MEDS: Insulin Lispro 100 UNIT/ML INSULN.PEN 8 UNIT SC ×2 (12:50→16:52)
[2023-10-26 13:11] LABS: Bedside Glucose 188 mg/dL (74-106)
--- NOTE | 2023-10-26 14:56 | CASEMGMT ---
Social Work- met with pt who states that he is being transferred to [facility]. Pt would like to return to [facility] upon d/c from [facility]. MAHNAZ Beatty
[2023-10-26] MEDS: Juven (unflavored) Packet 1 PACKET PO (16:52)
[2023-10-26 20:57] LABS: Vancomycin, Trough Level 22.8 ug/mL (5.0-15.0)
[2023-10-26] MEDS: Docusate Sodium 100 MG Capsule PO (21:39)
[2023-10-26 21:42] LABS: Bedside Glucose 153 mg/dL (74-106)
[2023-10-26] MEDS: DAKIN'S SOL HALF STRENGTH (=0.25%) 1 APPLIC TOPICAL (21:42)
[2023-10-26 22:01] LABS: Bedside Glucose 137 mg/dL (74-106)
[2023-10-26] MEDS: Senna/Docusate Sodium 1 Tablet 2 TABLET PO (22:14)
[2023-10-27] VITALS (16 sets, daily range): BP systolic 113–139; BP diastolic 60–79; PULSE 83–98; RESP 12–20; TEMP 36.4–36.7; O2SAT 91–98; BMI 48.7
--- NOTE | 2023-10-27 01:29 | PCM.RX.CS ---
Consult Antibiotic Management Pharmacy has been consulted to manage selected antibiotic: Vancomycin Type of Intervention Type of Consult: Follow-up Labs Labs: Sodium 133 mmol/L (136-145) L 10/26/23 05:45 Potassium 3.9 mmol/L (3.5-5.1) 10/26/23 05:45 Chloride 101 mmol/L (98-107) 10/26/23 05:45 Carbon Dioxide 27.0 mmol/L (21.0-32.0) 10/26/23 05:45 Anion Gap 5 (5-15) 10/26/23 05:45 BUN 15 mg/dL (7-18) 10/26/23 05:45 Creatinine 0.64 mg/dL (0.70-1.30) L 10/26/23 05:45 Est GFR (MDRD) Af Amer 165 mL/min (>60) 10/26/23 05:45 Est GFR (MDRD) Non-Af 137 mL/min (>60) 10/26/23 05:45 BUN/Creatinine Ratio 23.3 RATIO (10-20) H 10/26/23 05:45 Glucose 168 mg/dL (74-106) H 10/26/23 05:45 Vancomycin Trough 22.8 ug/mL (5.0-15.0) H 10/26/23 20:25 Microbiology Microbiology: Microbiology 10/26/23 01:40 Urine Catheter - Campbell Legionella Antigen - Final 10/26/23 01:40 Urine Catheter - Campbell Streptococcus pneumoniae Antigen (M - Final Goal Trough Goal Trough: 15-20 mcg/mL Pharmacy Plan for Drug Dosing Pharmacy Plan for Drug Dosing: Pharmacy Service will continue to monitor and adjust dosing as required. TROUGH 22.8 @ 8 HOURS. HOLD CURRENT DOSE AND DRAW RANDOM LEVEL IN 8 HOURS Follow-Up Labs Follow-Up Labs: Trough: Vancomycin Date/Time Labs Ordered Labs to be done on [date and time ordered]: 10/26 @ 3112
[2023-10-27] MEDS: oxyCODONE 5 MG Tablet 10 MG PO ×3 (01:44→18:18)
[2023-10-27 03:56] LABS: Absolute Lymphocyte Count 0.92 X10^3/uL (0.83-4.51); Basophil# 0.03 X10^3/uL; Basophil% 0.4 % (0-1); Eosinophil# 0.46 X10^3/uL; Eosinophils% 5.5 % (0-5); Hematocrit 26.6 % (40-54); Hemoglobin 7.3 g/dL (13.0-16.5); Lymphocyte # 0.92 X10^3/ul (0.83-4.51); Mean Corp Hgb Conc 27.4 g/dL (32-36); Mean Corpuscular Hgb 21.2 pg (27.0-32.0); Mean Corpuscular Volume 77.1 fL (80-94); Monocyte# 0.91 X10^3/uL; Monocyte% 10.9 % (0-10); NRBC Flagged by Analyzer 0.2 % (0-5); Neutrophil # 5.99 X10^3/uL (2.7-7.7); Neutrophil % 71.6 % (47-70); Platelet Count 371 K/mm3 (150-450); RBC Distribution Width CV 19.4 % (11.6-14.6); Red Blood Count 3.45 M/mm3 (4.6-6.2); White Blood Count 8.4 K/mm3 (4.4-11.0)
[2023-10-27 04:10] LABS: Anion Gap 3 (5-15); BUN 15 mg/dL (7-18); BUN/Creat Ratio 27.6 RATIO (10-20); Calcium,Total 8.4 mg/dL (8.5-10.1); Chloride 101 mmol/L (98-107); Creatinine, Serum 0.54 mg/dL (0.70-1.30); EST Glomerular Filtration Rate 166 mL/min (>60); Est Glom Filt Rate - Afr Amer 200 mL/min (>60); Estimated Creatinine Clearance 206.85 ml/min; Glucose 169 mg/dL (74-106); Potassium 4.4 mmol/L (3.5-5.1); Sodium Level 133 mmol/L (136-145)
[2023-10-27 04:11] LABS: Vancomycin, Random Level 16.3 ug/mL (0.0-15.0)
--- NOTE | 2023-10-27 05:21 | PCM.RX.CS ---
Consult Antibiotic Management Pharmacy has been consulted to manage selected antibiotic: Vancomycin Type of Intervention Type of Consult: Follow-up Labs Labs: Sodium 133 mmol/L (136-145) L 10/27/23 03:40 Potassium 4.4 mmol/L (3.5-5.1) 10/27/23 03:40 Chloride 101 mmol/L (98-107) 10/27/23 03:40 Carbon Dioxide 29.0 mmol/L (21.0-32.0) 10/27/23 03:40 Anion Gap 3 (5-15) L 10/27/23 03:40 BUN 15 mg/dL (7-18) 10/27/23 03:40 Creatinine 0.54 mg/dL (0.70-1.30) L 10/27/23 03:40 Est GFR (MDRD) Af Amer 200 mL/min (>60) 10/27/23 03:40 Est GFR (MDRD) Non-Af 166 mL/min (>60) 10/27/23 03:40 BUN/Creatinine Ratio 27.6 RATIO (10-20) H 10/27/23 03:40 Glucose 169 mg/dL (74-106) H 10/27/23 03:40 Vancomycin Trough 22.8 ug/mL (5.0-15.0) H 10/26/23 20:25 Random Vancomycin 16.3 ug/mL (0.0-15.0) H 10/27/23 03:40 Microbiology Microbiology: Microbiology 10/26/23 01:40 Urine Catheter - Campbell Legionella Antigen - Final 10/26/23 01:40 Urine Catheter - Campbell Streptococcus pneumoniae Antigen (M - Final Goal Trough Goal Trough: 15-20 mcg/mL Pharmacy Plan for Drug Dosing Pharmacy Plan for Drug Dosing: Pharmacy Service will continue to monitor and adjust dosing as required. RANDOM LEVEL 22.8 @ 15 HOURS. DECREASE TO 1250MG Q8H AND FOLLOW UP TROUGH PRIOR TO 4TH DOSE Follow-Up Labs Follow-Up Labs: Trough: Vancomycin Date/Time Labs Ordered Labs to be done on [date and time ordered]: 10/27 @ 3719
[2023-10-27] MEDS: Vancomycin HCl 1,250 MG in 0.9% Normal Saline (250mL Bag) 250 ML 167 MG IV ×2 (05:35→14:13)
[2023-10-27] MEDS: Insulin Lispro 100 UNIT/ML INSULN.PEN SC ×2 (05:37→16:22)
[2023-10-27] MEDS: Meropenem 2 GM in 0.9% Normal Saline (100mL Bag) 100 ML IV ×2 (05:39→14:48)
[2023-10-27 05:57] LABS: Bedside Glucose 153 mg/dL (74-106)
--- NOTE | 2023-10-27 06:00 | US_ITS ---
STUDY: US Chest 10/27/2023 8:40 PM REASON FOR EXAM: Male, 58 years old. PLEURAL EFFUSIONS Pleural Effusion TECHNIQUE: Ultrasound imaging was performed in all 4 quadrants of the chest. COMPARISON: None. FINDINGS: Right - There is mild pleural fluid Left - No detected fluid US/Chest IMPRESSION: Trace right pleural fluid. Electronically Signed: Art Jackson MD at 20:41 EDT ,
[2023-10-27] MEDS: Insulin Lispro 100 UNIT/ML INSULN.PEN 8 UNIT SC ×2 (07:01→16:21)
[2023-10-27] MEDS: Albuterol 2.5 MG/3 ML VIAL.NEB. INHALATION (07:06)
--- NOTE | 2023-10-27 07:17 | PN.HOSP_ITS ---
Reason for Visit Reason for Visit: Diagnoses Pneumonia, unspecified organism (10/25/23) Pleural effusion, not elsewhere classified (10/25/23) Acute respiratory failure with hypoxia (10/25/23) Subjective Subjective Feeling better. Has some back pain yesterday and so was not able to do the vest therapy. Still has been expectorating sputum. Objective Data Objective Data Vital Signs: Vital Signs Temp Pulse Resp BP Pulse Ox O2 Del Method O2 Flow Rate 36.6 C 93 15 120/67 96 Nasal Cannula 6 10/27/23 06:00 10/27/23 07:00 10/27/23 07:00 10/27/23 07:00 10/27/23 07:00 10/27/23 07:00 10/27/23 07:00 FiO2 35 10/27/23 02:18 Oxygen Flow Rate (L/min) 6 Oxygen Delivery Method Nasal Cannula Weight: 141.2 kg Body Mass Index (BMI) 48.7 Intake & Output: Intake and Output for Last 24 Hours 10/25/23 10/26/23 10/27/23 23:59 23:59 23:59 Intake Total 1660 / 1660 1960 / 1960 Output Total 700 / 700 2275 / 2275 400 / 400 Balance 960 / 960 -315 / -315 -400 / -400 Lab / Micro Data 10/27/23 03:40 10/27/23 03:40 Labs: Laboratory Results - last 24 hr 10/26/23 05:45: Lactate Dehydrogenase 164, Total Protein 7.5, Globulin 5.2 H, A lbumin/Globulin Ratio 0.4 L 10/26/23 12:24: POC Glucose 188 H 10/26/23 16:49: POC Glucose 153 H 10/26/23 20:25: Vancomycin Trough 22.8 H 10/26/23 21:36: POC Glucose 137 H 10/27/23 03:40: WBC 8.4, RBC 3.45 L, Hgb 7.3 L, Hct 26.6 L, MCV 77.1 L, MCH 21.2 L, MCHC 27.4 L, RDW Std Deviation 54.0 H, RDW Coeff of Mary 19.4 H, Plt Count 371, MPV 9.0, Immature Gran % (Auto) 0.600, Neut % (Auto) 71.6 H, Lymph % (Auto) 11.0 L, [place] % (Auto) 10.9 H, Eos % (Auto) 5.5 H, Baso % (Auto) 0.4, Absolute Neuts (auto) 6.0, Absolute Lymphs (auto) 0.92, Nucleated RBC % 0.2, Sodium 133 L , Potassium 4.4, Chloride 101, Carbon Dioxide 29.0, Anion Gap 3 L, BUN 15, C reatinine 0.54 L, Estim Creat Clear Calc 206.85, Est GFR (MDRD) Af Amer 200, Est GFR (MDRD) Non-Af 166, BUN/Creatinine Ratio 27.6 H, Glucose 169 H, Calcium 8.4 L , Random Vancomycin 16.3 H 10/27/23 05:33: POC Glucose 153 H Micro: Microbiology 10/26/23 01:40 Urine Catheter - Campbell Legionella Antigen - Final 10/26/23 01:40 Urine Catheter - Campbell Streptococcus pneumoniae Antigen (M - Final ABG Data ABG results: ABG 10/26/23 10:18 Specimen Type ART Sample Site R Brach pH 7.34 L Bicarbonate Actual 28.8 H Total CO2 31 Base Excess 3 H O2 Saturation 95 O2 % 40.0 ABG pCO2 54.0 H ABG pO2 84 Eliecer Test Positive Respiration Rate 12 O2 Delivery Device BiPAP Vent Mode Not entered Clinical Comments 24 18 Physical Exam Const alert and no apparent distress Constitutional Narrative: Up in bed. Eating breakfast. Nontoxic. HEENT head/scalp atraumatic and moist oral mucous membranes Resp normal respiratory effort and no retractions Resp Narrative: Clear to auscultation anteriorly. Cardio regular rate, regular rhythm, S1 normal heart sound and S2 normal heart sound Extremity Extremity Narrative: Nonpitting lower extremity edema. Assessment & Plan Assessment/Plan (1) Acute hypoxic respiratory failure: (2) Pneumonia: (3) Loculated pleural effusion: PLAN: Plan Acute hypoxic respiratory failure * Got worse on the but then got better after patient coughed up phlegm. Patient really has pneumonia as well as likely diffusion but a suspect his acute worsening in improvement was related to mucous plugging. * Secondary to pneumonia and pleural effusion * Wean oxygen as tolerated. BiPAP with sleep and naps. * Vest therapy ordered but has not received as he was having some back pain. I think is reasonable to hold off as patient is overall improving. Pneumonia, possible gram-negative * Antibiotics with vancomycin and meropenem * COVID-19, influenza and RSV negative. Strep and Legionella antigens negative. Blood cultures pending. Sputum culture not obtained yet * Pulmonary toilet Pleural effusion * Suspect secondary to pneumonia as it is appears to be loculated on CT * DW Dr. Tuttle, recommends TF to tertiary facility for CT surgery * Thoracentesis ordered, but will not be able to be performed until 10/26 since he is on apixaban. * 10/25: Given patient's worsening status, loculated effusion. I asked pt where he would prefer to be transferred to [facility]. I reached out to [facility] and provided patient information. Recent complicated UTI in setting of chronic indwelling Campbell catheter * Urine culture from 10/14 grew ESBL E. coli, Klebsiella and Proteus. Was apparently not initiated on antibiotics until 10/22. UA on 10/24 with 500 leukocyte esterase, negative nitrites, 2+ bacteria. Treating with IV vancomycin and meropenem as noted above. Paraplegic status secondary to L1 injury with acute on chronic debility * PT/OT/case management consulted. * Has been residing at [facility] since previous discharge on 09/12, will likely return there on this discharge. Chronic large pressure ulcers of bilateral buttocks * Prior to arrival. * Wound care consulted. * Pictures from wound care show large wound. continue wound care. Recent history of bladder outlet obstruction secondary to recurrent hematuria with clots * See discharge summary from 09/12 for further details. Hemoglobin currently stable and no issues with hematuria or clots at this time. Chronic medical conditions: * Obesity Class III: Complicates hospital course, care and prognosis. * BATOOL: Continue nocturnal BiPAP. * Chronic anemia: Hemoglobin 8.4 on admit, at baseline. Monitor. * Hypertension: Stable. Continue home amlodipine and carvedilol. * Type 2 diabetes mellitus with neuropathy: Home regimen of Lantus 24 units daily, lispro 8 units plus sliding scale insulin with meals. Glucose 202 on admit. Will continue home regimen, adjust as needed. Continue home gabapentin. * Chronic pain syndrome: Continue home oxycodone, oral morphine and gabapentin. * History of DVT/PE: Continue home Eliquis. * Chronic constipation: Continue home bowel regimen. * GERD: Continue home PPI. * Chronic lower extremity edema: Continue Surya wraps. * History of tobacco abuse: Encouraged continued cessation. VTE prophylaxis: SCDs CODE STATUS: Full code Will transfer back to the progressive care unit as patient is doing well. Charges/Coding Visit Charges Inpatient E&M: 52101 Subs Hosp L2
--- NOTE | 2023-10-27 08:12 | PN.CC_ITS ---
Assessment & Plan Assessment/Plan (1) Acute hypoxic respiratory failure: (2) Loculated pleural effusion: PLAN: Plan RECOMMENDATIONS: 1. Continue supplemental oxygen to maintain saturations at or above 90%. 2. BiPAP therapy with naps and nightly, per outpatient regimen. 3. Broad-spectrum antimicrobials. 4. Proceed with ultrasound-guided thoracentesis. IMPRESSIONS: 1. Acute hypoxemic respiratory failure Secondary to bilateral airspace disease with loculated pleural effusion noted on CT imaging. Unfortunately, the patient was on Eliquis, with last dose being administered 10/24. Therefore, recommend proceeding with thoracentesis when feasible after 48 hours off systemic anticoagulation. Depending on the nature of the pleural effusion, the patient may require thoracic surgery evaluation. In the interim, continue supplemental oxygen along with broad-spectrum antimicrobials as ordered. 2. Recent ESBL E. coli UTI. Repeat urinalysis is pending. The patient remains on broad-spectrum antimicrobials as noted above. 3. History of obstructive sleep apnea/baseline paraplegia related to L1 injury/obstructive sleep apnea/chronic pain syndrome/morbid obesity Complicates care, management, recovery and prognosis. Continue supportive measures as noted above along with BiPAP therapy, per outpatient regimen. This note was generated with [employer] dictation software. It may contain incorrect words, spelling, and punctuation that were not noted in checking the note before signing. Subjective Subjective The patient was seen and examined at the bedside this morning. Events from the last 24 hours have been reviewed. The patient is currently afebrile, hemodynamically stable and maintaining appropriate oxygen saturations on 6 L/min via nasal cannula. No overnight issues were identified by the nursing staff. The patient was compliant with nocturnal BiPAP therapy. He continues to report chronic, low back pain. White count is normal this morning. Hemoglobin was noted to be 7.3 g/dL. Chemistry profile was unrevealing. The patient remains on broad-spectrum antimicrobials. Objective Data Objective Data The patient's most recent lab work, culture data and imaging studies have all been personally reviewed. Vital Signs: Vital Signs Temp Pulse Resp BP Pulse Ox O2 Del Method O2 Flow Rate 98 F 93 15 120/67 96 Nasal Cannula 6 10/27/23 06:00 10/27/23 07:00 10/27/23 07:00 10/27/23 07:00 10/27/23 07:00 10/27/23 07:00 10/27/23 07:00 FiO2 35 10/27/23 02:18 Oxygen Flow Rate (L/min) 6 Oxygen Delivery Method Nasal Cannula Weight: 311 lb 4.683 oz Body Mass Index (BMI) 48.7 Intake & Output: Intake and Output for Last 24 Hours 10/25/23 10/26/23 10/27/23 23:59 23:59 23:59 Intake Total 1660 / 1660 1960 / 1960 415 / 415 Output Total 700 / 700 2275 / 2275 400 / 400 Balance 960 / 960 -315 / -315 Lab / Micro Data Attestation: I reviewed the patient's lab results. 10/27/23 03:40 10/27/23 03:40 Labs: Laboratory Results - last 24 hr 10/26/23 12:24: POC Glucose 188 H 10/26/23 16:49: POC Glucose 153 H 10/26/23 20:25: Vancomycin Trough 22.8 H 10/26/23 21:36: POC Glucose 137 H 10/27/23 03:40: WBC 8.4, RBC 3.45 L, Hgb 7.3 L, Hct 26.6 L, MCV 77.1 L, MCH 21.2 L, MCHC 27.4 L, RDW Std Deviation 54.0 H, RDW Coeff of Mary 19.4 H, Plt Count 371, MPV 9.0, Immature Gran % (Auto) 0.600, Neut % (Auto) 71.6 H, Lymph % (Auto) 11.0 L, [place] % (Auto) 10.9 H, Eos % (Auto) 5.5 H, Baso % (Auto) 0.4, Absolute Neuts (auto) 6.0, Absolute Lymphs (auto) 0.92, Nucleated RBC % 0.2, Sodium 133 L , Potassium 4.4, Chloride 101, Carbon Dioxide 29.0, Anion Gap 3 L, BUN 15, C reatinine 0.54 L, Estim Creat Clear Calc 206.85, Est GFR (MDRD) Af Amer 200, Est GFR (MDRD) Non-Af 166, BUN/Creatinine Ratio 27.6 H, Glucose 169 H, Calcium 8.4 L , Random Vancomycin 16.3 H 10/27/23 05:33: POC Glucose 153 H Micro: Microbiology 10/26/23 01:40 Urine Catheter - Campbell Legionella Antigen - Final 10/26/23 01:40 Urine Catheter - Campbell Streptococcus pneumoniae Antigen (M - Final ABG Data ABG results: ABG 10/26/23 10:18 Specimen Type ART Sample Site R Brach pH 7.34 L Bicarbonate Actual 28.8 H Total CO2 31 Base Excess 3 H O2 Saturation 95 O2 % 40.0 ABG pCO2 54.0 H ABG pO2 84 Eliecer Test Positive Respiration Rate 12 O2 Delivery Device BiPAP Vent Mode Not entered Clinical Comments Physical Exam Const alert and no apparent distress Constitutional Narrative: Morbidly obese. General Appearance: cooperative HEENT normocephalic and head/scalp atraumatic Eyes PERRL, EOMs intact bilaterally and conjunctivae normal Neck supple General: trachea midline Chest inspection of chest normal Resp Auscultation: diminished lung sounds; Negative for rales, rhonchi or wheezes Cardio regular rate and regular rhythm GI soft to palpation and non-tender Inspection: ostomy present Extremity no clubbing, cyanosis or edema Skin no rashes or lesions noted Neuro CN's II-XII intact bilaterally Psych cooperative and affect normal Charges/Coding Visit Charges Inpatient E&M: 37628 Subs Hosp L2
[2023-10-27] MEDS: Carvedilol 12.5 MG Tablet PO ×2 (10:03→16:22)
[2023-10-27] MEDS: Glycerin/Hypromellose/PEG400 15 ml Bottle 1 DRP EACH EYE (10:04)
[2023-10-27] MEDS: Loratadine 10 MG Tablet PO (10:05)
[2023-10-27] MEDS: Polyethylene Glycol 3350 17 GM PACKET PO (10:06)
[2023-10-27] MEDS: guaiFENesin 1,200 MG Tablet 1200 MG PO (10:06)
[2023-10-27] MEDS: Insulin Glargine-YFGN 100 UNIT/ML Pen 24 UNIT SC (10:06)
[2023-10-27] MEDS: Iron Polysaccharide Complex 150 MG CAPSULE PO (10:06)
[2023-10-27] MEDS: DAKIN'S SOL HALF STRENGTH (=0.25%) 1 APPLIC TOPICAL (10:06)
[2023-10-27] MEDS: amLODIPine 10 MG Tablet PO (10:07)
[2023-10-27] MEDS: Pantoprazole Sodium 40 MG Tablet PO (10:07)
[2023-10-27] MEDS: Gabapentin 100 MG Capsule PO (10:09)
[2023-10-27] MEDS: morphine SR 15 MG Tablet 30 MG PO (10:09)
--- NOTE | 2023-10-27 10:23 | CASEMGMT ---
Social Work SW called [facility], message left letting Chrisney know that pt is getting transferred to [facility]. ALISA Sheth
--- NOTE | 2023-10-27 10:25 | CASEMGMT ---
Addendum entered by Amalia Ramirez 10/27/23 10:47: Social Work SW received call back, as per Bren at [facility], pt's sister and mother are very involved but pt does not have LW/POA forms on file at [facility]. ALISA Sheth Original Note: Social Work LW/POA not on file here, as per admitting RN, he does not have LW/POA and declined further information. SW left a message for [facility], asked Bren to fax over POA papers if they have any. ALISA Sheth
--- NOTE | 2023-10-27 13:44 | CASEMGMT ---
Discharge Planning Updates sent to [facility] with notification that patient is to be transferred to tertiary facility. Dipika Bullard DC Planning Asst
--- NOTE | 2023-10-27 14:18 | CHAPLAIN ---
Type of Pastoral Visit _x__ Initial Visit ___ Follow-up Visit ___ On-call Visit ___ General Patient Visit ___ Spiritual Assessment ___ Family Conference ___ Bereavement ___ Rapid Response ___ Code Blue ___ Other (describe below) Pastoral Care Referral From _x__ Patient ___ Family ___ Nurse ___ Physician ___ Clinical Unit Coordinator ___ Surgical Forceps Fabricator ___ Other (describe below) Sacrament/Intervention _x__ Active listening ___ Anointing ___ Anglican ___ Bereavement ___ Communion ___ Migdalia exploration ___ ___ Life review _x__ Prayer ___ Reconciliation ___ Sacrament of Sick _x__ Supportive presence ___ Wedding ___ Other (describe below) Pastoral Comments patient gives update on his health and life since his last admission when also seen by this carbon blocks press operator; pt presents with a positive attitude and hopeful for better days; pt has been able to benefit from his stay in SNF and will probably return there soon; pt welcomes presence and prayer
[2023-10-27] MEDS: Juven (unflavored) Packet 1 PACKET PO (16:21)
[2023-10-27 16:52] LABS: Bedside Glucose 155 mg/dL (74-106)
== END 2023-10-27 18:53 | disposition short-term general hospital (02) | DRG 177 ==
LOC: ED 20:37 → PCU 22:04 → ICU 10-26 10:43 → PCU 10-27 12:52
PROVIDERS: Internal Medicine Critical Care Medicine; Admitting Provider Hospitalist; Emergency Provider Emergency Medicine; PCP Internal Medicine
DX: J15.69 Pneumonia due to other Gram-negative bacteria (principal); J96.01 Acute respiratory failure with hypoxia; G82.20 Paraplegia, unspecified; Z68.43 Body mass index [BMI] 50.0-59.9, adult; J90 Pleural effusion, not elsewhere classified; T83.511A Infection and inflammatory reaction due to indwelling urethral catheter, initial encounter; N39.0 Urinary tract infection, site not specified; L89.310 Pressure ulcer of right buttock, unstageable; E11.9 Type 2 diabetes mellitus without complications; B96.1 Klebsiella pneumoniae [K. pneumoniae] as the cause of diseases classified elsewhere; L89.320 Pressure ulcer of left buttock, unstageable; E66.01 Morbid (severe) obesity due to excess calories; Z79.4 Long term (current) use of insulin; I10 Essential (primary) hypertension; G47.33 Obstructive sleep apnea (adult) (pediatric); K21.9 Gastro-esophageal reflux disease without esophagitis; K59.09 Other constipation; B96.20 Unspecified Escherichia coli [E. coli] as the cause of diseases classified elsewhere; G89.4 Chronic pain syndrome; B96.4 Proteus (mirabilis) (morganii) as the cause of diseases classified elsewhere; Z79.01 Long term (current) use of anticoagulants; Z87.891 Personal history of nicotine dependence; Z86.718 Personal history of other venous thrombosis and embolism; Z86.711 Personal history of pulmonary embolism
CPT/HCPCS: 36415; 36600; 71275; 76604; 80048; 80076; 80202; 82803; 82962; 83605; 83615; 83880; 84156; 84484; 85025; 85027; 85610; 85730; 86850; 86900; 86901; 86920; 86922; 87449; 92526; 92610; 93005; 94002; 94003; 94640; 94660; 94668; 94762; 97802; 99285; J2185; J7030; J7040; J7050; Q9967; A4216

== ENCOUNTER → 2023-11-07 | Outpatient (REF) | payer OTHER, SELFPAY ==
[2023-11-07 09:04] LABS: Absolute Neutrophil Count 4.8 X10^3/uL (2.0-7.7); Basophil# 0.07 X10^3/uL; Basophil% 0.8 % (0-1); Eosinophil# 0.37 X10^3/uL; Eosinophils% 4.4 % (0-5); Hematocrit 28.7 % (40-54); Hemoglobin 7.6 g/dL (13.0-16.5); Lymphocyte % 28.7 % (19-41); Mean Corp Hgb Conc 26.5 g/dL (32-36); Mean Corpuscular Hgb 20.8 pg (27.0-32.0); Mean Corpuscular Volume 78.4 fL (80-94); Mean Platelet Vol. 9.4 fl (6.2-12.0); Monocyte# 0.64 X10^3/uL; Monocyte% 7.7 % (0-10); NRBC Flagged by Analyzer 0 % (0-5); Neutrophil # 4.83 X10^3/uL (2.7-7.7); Neutrophil % 57.9 % (47-70); POSITIVE MORPHOLOGY YES; Platelet Count 440 K/mm3 (150-450); RBC Distribution Width CV 20.6 % (11.6-14.6); RBC Distribution Width SD 56.8 fl (35.1-43.9); Red Blood Count 3.66 M/mm3 (4.6-6.2); White Blood Count 8.4 K/mm3 (4.4-11.0)
[2023-11-07 09:08] LABS: Differential Indicated SCAN CRITERIA MET
[2023-11-07 09:49] LABS: ALB/GLOB Ratio 0.6 RATIO (0.9-2.4); AST(SGOT) 13 U/L (15-37); Alanine Aminotransfer ALT/SGPT 15 U/L (16-61); Albumin, Serum 2.6 g/dL (3.2-5.0); Alkaline Phosphatase 93 U/L (45-117); Anion Gap 5 (5-15); BUN 8 mg/dL (7-18); BUN/Creat Ratio 14.1 RATIO (10-20); Calcium,Total 8.9 mg/dL (8.5-10.1); Chloride 101 mmol/L (98-107); Creatinine, Serum 0.57 mg/dL (0.70-1.30); EST Glomerular Filtration Rate 158 mL/min (>60); Est Glom Filt Rate - Afr Amer 191 mL/min (>60); Globulin 4.5 g/dL (2.2-4.2); Glucose 122 mg/dL (74-106); Potassium 4.3 mmol/L (3.5-5.1); Protein, Total 7.1 g/dL (6.4-8.2); Sodium Level 139 mmol/L (136-145)
[2023-11-07 09:59] LABS: Anisocytosis 2+
[2023-11-07 11:56] LABS: Erythrocyte Sedimentation Rate 52 mm/hr (0-20)
== END ==
LOC: OLS.WHLTCC 04:00
PROVIDERS: PCP Internal Medicine; Referring Provider Internal Medicine; Visit Provider Internal Medicine
DX: E11.9 Type 2 diabetes mellitus without complications (principal); L89.154 Pressure ulcer of sacral region, stage 4
CPT/HCPCS: 36415; 80053; 85025; 85652; 86140

== ENCOUNTER → 2023-11-10 | Outpatient (REF) | payer OTHER, MEDICAID, SELFPAY ==
[2023-11-10 07:34] LABS: Absolute Lymphocyte Count 2.57 X10^3/uL (0.83-4.51); Basophil# 0.08 X10^3/uL; Eosinophil# 0.41 X10^3/uL; Eosinophils% 5.3 % (0-5); Hematocrit 27.8 % (40-54); Hemoglobin 7.4 g/dL (13.0-16.5); Lymphocyte # 2.57 X10^3/ul (0.83-4.51); Lymphocyte % 32.9 % (19-41); Mean Corp Hgb Conc 26.6 g/dL (32-36); Mean Corpuscular Hgb 20.6 pg (27.0-32.0); Mean Corpuscular Volume 77.4 fL (80-94); Mean Platelet Vol. 9.4 fl (6.2-12.0); Monocyte# 0.72 X10^3/uL; Monocyte% 9.2 % (0-10); NRBC Flagged by Analyzer 0 % (0-5); Neutrophil # 3.98 X10^3/uL (2.7-7.7); Neutrophil % 51.1 % (47-70); POSITIVE MORPHOLOGY YES; Platelet Count 399 K/mm3 (150-450); RBC Distribution Width CV 20.7 % (11.6-14.6); RBC Distribution Width SD 57.9 fl (35.1-43.9); Red Blood Count 3.59 M/mm3 (4.6-6.2); White Blood Count 7.8 K/mm3 (4.4-11.0)
[2023-11-10 07:43] LABS: Differential Indicated SCAN CRITERIA MET
[2023-11-10 08:15] LABS: Differential Comment SCANNED
[2023-11-10 08:16] LABS: Anisocytosis 3+; Hypochromasia 2+; Microcytosis 2+; Schistocytes 1+; Target Cells 1+
[2023-11-10 08:17] LABS: Ovalocyte 1+
== END ==
LOC: OLS.WHLTCC 05:00
PROVIDERS: PCP Internal Medicine; Visit Provider Internal Medicine
DX: D62 Acute posthemorrhagic anemia (principal); G82.20 Paraplegia, unspecified; J15.9 Unspecified bacterial pneumonia; J91.8 Pleural effusion in other conditions classified elsewhere
CPT/HCPCS: 36415; 85025

== ENCOUNTER → 2023-11-28 | Outpatient (REF) | payer OTHER, MEDICAID, SELFPAY ==
[2023-11-28 08:13] LABS: Absolute Lymphocyte Count 2.19 X10^3/uL (0.83-4.51); Basophil# 0.03 X10^3/uL; Basophil% 0.4 % (0-1); Eosinophil# 0.39 X10^3/uL; Eosinophils% 4.8 % (0-5); Hematocrit 28.3 % (40-54); Hemoglobin 7.8 g/dL (13.0-16.5); Lymphocyte # 2.19 X10^3/ul (0.83-4.51); Lymphocyte % 26.7 % (19-41); Mean Corp Hgb Conc 27.6 g/dL (32-36); Mean Corpuscular Hgb 21.1 pg (27.0-32.0); Mean Corpuscular Volume 76.5 fL (80-94); Mean Platelet Vol. 9.7 fl (6.2-12.0); Monocyte# 0.58 X10^3/uL; Monocyte% 7.1 % (0-10); NRBC Flagged by Analyzer 0 % (0-5); Neutrophil # 4.98 X10^3/uL (2.7-7.7); Neutrophil % 60.5 % (47-70); Platelet Count 329 K/mm3 (150-450); RBC Distribution Width SD 55.2 fl (35.1-43.9); White Blood Count 8.2 K/mm3 (4.4-11.0)
[2023-11-28 08:35] LABS: Anion Gap 6 (5-15); BUN 19 mg/dL (7-18); BUN/Creat Ratio 26.4 RATIO (10-20); Calcium,Total 8.8 mg/dL (8.5-10.1); Chloride 101 mmol/L (98-107); Creatinine, Serum 0.72 mg/dL (0.70-1.30); EST Glomerular Filtration Rate 120 mL/min (>60); Est Glom Filt Rate - Afr Amer 145 mL/min (>60); Glucose 245 mg/dL (74-106); Sodium Level 135 mmol/L (136-145)
== END ==
LOC: OLS.WHLTCC 04:00
PROVIDERS: PCP Internal Medicine; Visit Provider Internal Medicine
DX: E11.9 Type 2 diabetes mellitus without complications (principal)
CPT/HCPCS: 36415; 80048; 85025

== ENCOUNTER → 2023-12-05 | Outpatient (REF) | payer OTHER, MEDICAID, SELFPAY ==
[2023-12-05 08:42] LABS: Absolute Neutrophil Count 4.8 X10^3/uL (2.0-7.7); Basophil# 0.05 X10^3/uL; Basophil% 0.6 % (0-1); Eosinophil# 0.46 X10^3/uL; Eosinophils% 5.4 % (0-5); Hematocrit 30.8 % (40-54); Hemoglobin 8.3 g/dL (13.0-16.5); Mean Corp Hgb Conc 26.9 g/dL (32-36); Mean Corpuscular Hgb 20.6 pg (27.0-32.0); Mean Corpuscular Volume 76.4 fL (80-94); Mean Platelet Vol. 9.2 fl (6.2-12.0); Monocyte# 0.76 X10^3/uL; Monocyte% 8.9 % (0-10); NRBC Flagged by Analyzer 0 % (0-5); Neutrophil # 4.82 X10^3/uL (2.7-7.7); Neutrophil % 56.3 % (47-70); Platelet Count 370 K/mm3 (150-450); RBC Distribution Width CV 19.9 % (11.6-14.6); RBC Distribution Width SD 54.9 fl (35.1-43.9); Red Blood Count 4.03 M/mm3 (4.6-6.2); White Blood Count 8.6 K/mm3 (4.4-11.0)
[2023-12-05 09:27] LABS: Anion Gap 7 (5-15); BUN 17 mg/dL (7-18); BUN/Creat Ratio 23.7 RATIO (10-20); Calcium,Total 8.8 mg/dL (8.5-10.1); Chloride 99 mmol/L (98-107); Creatinine, Serum 0.72 mg/dL (0.70-1.30); EST Glomerular Filtration Rate 121 mL/min (>60); Est Glom Filt Rate - Afr Amer 146 mL/min (>60); Glucose 174 mg/dL (74-106); Sodium Level 137 mmol/L (136-145)
== END ==
LOC: OLS.WHLTCC 04:00
PROVIDERS: PCP Internal Medicine; Referring Provider Internal Medicine; Visit Provider Internal Medicine
DX: E11.9 Type 2 diabetes mellitus without complications (principal); J15.9 Unspecified bacterial pneumonia
CPT/HCPCS: 36415; 80048; 85025

== ENCOUNTER → 2023-12-12 | Outpatient (REF) | payer OTHER, MEDICAID, SELFPAY ==
[2023-12-12 09:34] LABS: Absolute Neutrophil Count 4.9 X10^3/uL (2.0-7.7); Basophil# 0.05 X10^3/uL; Basophil% 0.6 % (0-1); Eosinophil# 0.43 X10^3/uL; Eosinophils% 5.2 % (0-5); Hematocrit 29.7 % (40-54); Hemoglobin 8.1 g/dL (13.0-16.5); Lymphocyte % 24.3 % (19-41); Mean Corp Hgb Conc 27.3 g/dL (32-36); Mean Corpuscular Hgb 20.8 pg (27.0-32.0); Mean Corpuscular Volume 76.3 fL (80-94); Mean Platelet Vol. 9.7 fl (6.2-12.0); Monocyte# 0.73 X10^3/uL; Monocyte% 8.9 % (0-10); NRBC Flagged by Analyzer 0 % (0-5); Neutrophil # 4.87 X10^3/uL (2.7-7.7); Neutrophil % 59.3 % (47-70); Platelet Count 360 K/mm3 (150-450); RBC Distribution Width CV 19.8 % (11.6-14.6); RBC Distribution Width SD 54.7 fl (35.1-43.9); Red Blood Count 3.89 M/mm3 (4.6-6.2); White Blood Count 8.2 K/mm3 (4.4-11.0)
[2023-12-12 10:02] LABS: Anion Gap 7 (5-15); BUN 21 mg/dL (7-18); BUN/Creat Ratio 26.8 RATIO (10-20); Calcium,Total 8.5 mg/dL (8.5-10.1); Chloride 102 mmol/L (98-107); Creatinine, Serum 0.78 mg/dL (0.70-1.30); EST Glomerular Filtration Rate 109 mL/min (>60); Est Glom Filt Rate - Afr Amer 132 mL/min (>60); Glucose 262 mg/dL (74-106); Potassium 4.2 mmol/L (3.5-5.1); Sodium Level 134 mmol/L (136-145)
== END ==
LOC: OLS.WHLTCC 05:00
PROVIDERS: PCP Internal Medicine; Visit Provider Internal Medicine
DX: E11.9 Type 2 diabetes mellitus without complications (principal); J15.9 Unspecified bacterial pneumonia; G82.20 Paraplegia, unspecified
CPT/HCPCS: 36415; 80048; 85025

== ENCOUNTER → 2023-12-19 | Outpatient (REF) | payer OTHER, MEDICAID, SELFPAY ==
[2023-12-19 08:17] LABS: Absolute Lymphocyte Count 2.61 X10^3/uL (0.83-4.51); Absolute Neutrophil Count 6.3 X10^3/uL (2.0-7.7); Basophil# 0.04 X10^3/uL; Basophil% 0.4 % (0-1); Hematocrit 29.5 % (40-54); Hemoglobin 7.9 g/dL (13.0-16.5); Lymphocyte # 2.61 X10^3/ul (0.83-4.51); Lymphocyte % 26.1 % (19-41); Mean Corp Hgb Conc 26.8 g/dL (32-36); Mean Corpuscular Hgb 20.2 pg (27.0-32.0); Mean Corpuscular Volume 75.3 fL (80-94); Mean Platelet Vol. 9.6 fl (6.2-12.0); NRBC Flagged by Analyzer 0 % (0-5); Neutrophil # 6.32 X10^3/uL (2.7-7.7); Neutrophil % 63.1 % (47-70); POSITIVE MORPHOLOGY YES; Platelet Count 410 K/mm3 (150-450); RBC Distribution Width CV 20.2 % (11.6-14.6); RBC Distribution Width SD 54.1 fl (35.1-43.9); Red Blood Count 3.92 M/mm3 (4.6-6.2)
[2023-12-19 08:19] LABS: Differential Indicated SCAN CRITERIA MET
[2023-12-19 08:35] LABS: Anion Gap 2 (5-15); BUN 21 mg/dL (7-18); BUN/Creat Ratio 30.1 RATIO (10-20); Chloride 100 mmol/L (98-107); EST Glomerular Filtration Rate 124 mL/min (>60); Est Glom Filt Rate - Afr Amer 150 mL/min (>60); Glucose 203 mg/dL (74-106); Potassium 4.4 mmol/L (3.5-5.1); Sodium Level 136 mmol/L (136-145)
[2023-12-19 08:50] LABS: Anisocytosis 2+; Differential Comment SCANNED; Polychromasia RARE
== END ==
LOC: OLS.WHLTCC 04:00
PROVIDERS: PCP Internal Medicine; Visit Provider Internal Medicine
DX: E11.9 Type 2 diabetes mellitus without complications (principal); J15.9 Unspecified bacterial pneumonia; G82.20 Paraplegia, unspecified
CPT/HCPCS: 36415; 80048; 85025

== ENCOUNTER → 2023-12-26 | Outpatient (REF) | payer OTHER, MEDICAID, SELFPAY ==
[2023-12-26 07:52] LABS: Absolute Lymphocyte Count 2.29 X10^3/uL (0.83-4.51); Absolute Neutrophil Count 5.1 X10^3/uL (2.0-7.7); Basophil# 0.05 X10^3/uL; Basophil% 0.6 % (0-1); Eosinophils% 4.6 % (0-5); Hematocrit 29.9 % (40-54); Hemoglobin 7.9 g/dL (13.0-16.5); Lymphocyte # 2.29 X10^3/ul (0.83-4.51); Lymphocyte % 26.3 % (19-41); Mean Corp Hgb Conc 26.4 g/dL (32-36); Mean Corpuscular Hgb 19.8 pg (27.0-32.0); Mean Corpuscular Volume 74.9 fL (80-94); Mean Platelet Vol. 9.5 fl (6.2-12.0); Monocyte% 9.2 % (0-10); NRBC Flagged by Analyzer 0 % (0-5); Neutrophil # 5.14 X10^3/uL (2.7-7.7); Platelet Count 395 K/mm3 (150-450); RBC Distribution Width CV 19.8 % (11.6-14.6); RBC Distribution Width SD 53.5 fl (35.1-43.9); Red Blood Count 3.99 M/mm3 (4.6-6.2); White Blood Count 8.7 K/mm3 (4.4-11.0)
[2023-12-26 09:43] LABS: Anion Gap 5 (5-15); BUN 21 mg/dL (7-18); Chloride 100 mmol/L (98-107); Creatinine, Serum 0.75 mg/dL (0.70-1.30); EST Glomerular Filtration Rate 114 mL/min (>60); Est Glom Filt Rate - Afr Amer 138 mL/min (>60); Glucose 260 mg/dL (74-106); Potassium 3.9 mmol/L (3.5-5.1); Sodium Level 136 mmol/L (136-145)
== END ==
LOC: OLS.WHLTCC 04:00
PROVIDERS: PCP Internal Medicine; Visit Provider Internal Medicine
DX: E11.9 Type 2 diabetes mellitus without complications (principal)
CPT/HCPCS: 36415; 80048; 85025

== ENCOUNTER → 2024-01-02 | Outpatient (REF) | payer OTHER, MEDICAID, SELFPAY ==
[2024-01-02 07:33] LABS: Absolute Lymphocyte Count 2.22 X10^3/uL (0.83-4.51); Absolute Neutrophil Count 5.6 X10^3/uL (2.0-7.7); Basophil# 0.04 X10^3/uL; Basophil% 0.4 % (0-1); Eosinophil# 0.37 X10^3/uL; Eosinophils% 4.1 % (0-5); Hematocrit 27.5 % (40-54); Hemoglobin 7.5 g/dL (13.0-16.5); Lymphocyte # 2.22 X10^3/ul (0.83-4.51); Lymphocyte % 24.8 % (19-41); Mean Corp Hgb Conc 27.3 g/dL (32-36); Mean Corpuscular Hgb 20.3 pg (27.0-32.0); Mean Corpuscular Volume 74.5 fL (80-94); Mean Platelet Vol. 9.5 fl (6.2-12.0); Monocyte# 0.59 X10^3/uL; Monocyte% 6.6 % (0-10); NRBC Flagged by Analyzer 0 % (0-5); Neutrophil # 5.57 X10^3/uL (2.7-7.7); Neutrophil % 62.4 % (47-70); Platelet Count 399 K/mm3 (150-450); RBC Distribution Width CV 19.9 % (11.6-14.6); RBC Distribution Width SD 53.7 fl (35.1-43.9); Red Blood Count 3.69 M/mm3 (4.6-6.2); White Blood Count 8.9 K/mm3 (4.4-11.0)
[2024-01-02 08:10] LABS: Anion Gap 4 (5-15); BUN 18 mg/dL (7-18); BUN/Creat Ratio 22.8 RATIO (10-20); Calcium,Total 8.9 mg/dL (8.5-10.1); Chloride 101 mmol/L (98-107); Creatinine, Serum 0.79 mg/dL (0.70-1.30); EST Glomerular Filtration Rate 108 mL/min (>60); Est Glom Filt Rate - Afr Amer 130 mL/min (>60); Glucose 237 mg/dL (74-106); Sodium Level 136 mmol/L (136-145)
[2024-01-02 08:30] LABS: International Normalized Ratio 1.3; Prothrombin Time (Protime)PT. 16.4 SECONDS (11.7-14.9)
== END ==
LOC: OLS.WHLEAS 04:00
PROVIDERS: PCP Internal Medicine; Visit Provider Internal Medicine
DX: E11.9 Type 2 diabetes mellitus without complications (principal); J15.9 Unspecified bacterial pneumonia; R33.9 Retention of urine, unspecified
CPT/HCPCS: 36415; 80048; 85025; 85610

== ENCOUNTER → 2024-01-09 | Outpatient (REF) | payer OTHER, MEDICAID, SELFPAY ==
[2024-01-09 07:27] LABS: Absolute Lymphocyte Count 2.37 X10^3/uL (0.83-4.51); Absolute Neutrophil Count 5.5 X10^3/uL (2.0-7.7); Basophil# 0.06 X10^3/uL; Basophil% 0.7 % (0-1); Eosinophil# 0.36 X10^3/uL; Eosinophils% 4.1 % (0-5); Hematocrit 29.1 % (40-54); Hemoglobin 7.8 g/dL (13.0-16.5); Lymphocyte # 2.37 X10^3/ul (0.83-4.51); Lymphocyte % 26.7 % (19-41); Mean Corp Hgb Conc 26.8 g/dL (32-36); Mean Corpuscular Hgb 19.7 pg (27.0-32.0); Mean Corpuscular Volume 73.5 fL (80-94); Mean Platelet Vol. 9.6 fl (6.2-12.0); Monocyte# 0.58 X10^3/uL; Monocyte% 6.5 % (0-10); NRBC Flagged by Analyzer 0 % (0-5); Neutrophil # 5.47 X10^3/uL (2.7-7.7); Neutrophil % 61.5 % (47-70); POSITIVE MORPHOLOGY YES; Platelet Count 401 K/mm3 (150-450); RBC Distribution Width CV 20.1 % (11.6-14.6); Red Blood Count 3.96 M/mm3 (4.6-6.2); White Blood Count 8.9 K/mm3 (4.4-11.0)
[2024-01-09 07:47] LABS: Differential Indicated SCAN CRITERIA MET
[2024-01-09 08:07] LABS: Anion Gap 9 (5-15); BUN 13 mg/dL (7-18); BUN/Creat Ratio 18.9 RATIO (10-20); Calcium,Total 8.7 mg/dL (8.5-10.1); Chloride 99 mmol/L (98-107); Creatinine, Serum 0.69 mg/dL (0.70-1.30); EST Glomerular Filtration Rate 126 mL/min (>60); Est Glom Filt Rate - Afr Amer 153 mL/min (>60); Glucose 206 mg/dL (74-106); Potassium 3.7 mmol/L (3.5-5.1); Sodium Level 138 mmol/L (136-145)
[2024-01-09 09:11] LABS: Anisocytosis 1+
== END ==
LOC: OLS.WHLEAS 05:00
PROVIDERS: PCP Internal Medicine; Visit Provider Internal Medicine
DX: E11.9 Type 2 diabetes mellitus without complications (principal)
CPT/HCPCS: 36415; 80048; 85025

== ENCOUNTER → 2024-01-23 05:00 | Outpatient (REF) | payer OTHER, MEDICAID, SELFPAY ==
[2024-01-23 09:42] LABS: Absolute Lymphocyte Count 2.01 X10^3/uL (0.83-4.51); Absolute Neutrophil Count 4.2 X10^3/uL (2.0-7.7); Basophil# 0.04 X10^3/uL; Basophil% 0.5 % (0-1); Eosinophil# 0.37 X10^3/uL; Eosinophils% 5.1 % (0-5); Hematocrit 28.4 % (40-54); Hemoglobin 7.5 g/dL (13.0-16.5); Lymphocyte # 2.01 X10^3/ul (0.83-4.51); Lymphocyte % 27.5 % (19-41); Mean Corp Hgb Conc 26.4 g/dL (32-36); Mean Corpuscular Hgb 19.6 pg (27.0-32.0); Mean Corpuscular Volume 74.3 fL (80-94); Mean Platelet Vol. 9.4 fl (6.2-12.0); Monocyte# 0.64 X10^3/uL; Monocyte% 8.8 % (0-10); NRBC Flagged by Analyzer 0.3 % (0-5); Neutrophil # 4.17 X10^3/uL (2.7-7.7); Neutrophil % 57.1 % (47-70); Platelet Count 396 K/mm3 (150-450); RBC Distribution Width CV 19.4 % (11.6-14.6); RBC Distribution Width SD 51.9 fl (35.1-43.9); Red Blood Count 3.82 M/mm3 (4.6-6.2); White Blood Count 7.3 K/mm3 (4.4-11.0)
[2024-01-23 10:11] LABS: Anion Gap 6 (5-15); BUN 17 mg/dL (7-18); BUN/Creat Ratio 19.2 RATIO (10-20); Calcium,Total 8.6 mg/dL (8.5-10.1); Chloride 100 mmol/L (98-107); Creatinine, Serum 0.89 mg/dL (0.70-1.30); EST Glomerular Filtration Rate 94 mL/min (>60); Est Glom Filt Rate - Afr Amer 114 mL/min (>60); Glucose 211 mg/dL (74-106); Potassium 4.1 mmol/L (3.5-5.1); Sodium Level 137 mmol/L (136-145)
== END ==
LOC: OLS.WHLEAS 05:00
PROVIDERS: PCP Internal Medicine; Visit Provider Internal Medicine
DX: E11.9 Type 2 diabetes mellitus without complications (principal)
CPT/HCPCS: 36415; 80048; 85025

== ENCOUNTER → 2024-01-26 | Outpatient (REF) | payer OTHER, MEDICAID, SELFPAY | LOC: OLS.WHLEAS 12:00 | PROVIDERS: PCP Internal Medicine; Visit Provider Internal Medicine | DX: L89.154 Pressure ulcer of sacral region, stage 4 (principal) | CPT/HCPCS: 87070; 87077; 87186; 87205 ==

== ENCOUNTER → 2024-01-28 | Outpatient (CLI) | payer OTHER, MEDICAID, SELFPAY ==
[2024-01-28 13:53] LABS: Mucous, Urine 0 SEEN /hpf (<or=2+); Squamous Epithelial Cells - UA 0 SEEN /hpf (0-5)
[2024-01-28 14:21] LABS: Color, Urine Yellow (Yellow); Glucose, Dipstick Normal (Normal); Ketone-Dipstick Negative (Negative); Leukocyte Esterase-Dipstick 500 /ul (Negative); Nitrite-Dipstick Negative (Negative); Occult Blood-Urine 25 /ul (Negative); Protein-Dipstick 100 mg/dl (Negative); Urine Bilirubin Dipstick Negative (Negative); Urine Clarity Cloudy (Clear); Urine Urobilinogen Normal (Normal)
[2024-01-28 14:53] LABS: White Blood Cells 25-50 SEEN /hpf (0-5)
[2024-01-28 14:55] LABS: Bacteria 2+ /hpf (None Seen)
[2024-01-28 14:59] LABS: Red Blood Cells-Urine 5-10 SEEN /hpf (0-5)
[2024-01-28 15:00] LABS: Triple Phosphate Crystals Ur 1+ /hpf (<or=1+)
== END | disposition home or self-care (01) ==
PROVIDERS: PCP Internal Medicine; Visit Provider Internal Medicine
DX: M54.50 Low back pain, unspecified (principal)
CPT/HCPCS: 81001; 87077; 87086; 87088; 87186

== ENCOUNTER → 2024-01-30 05:00 | Outpatient (REF) | payer OTHER, MEDICAID, SELFPAY ==
[2024-01-30 09:08] LABS: Absolute Lymphocyte Count 2.41 X10^3/uL (0.83-4.51); Absolute Neutrophil Count 6.4 X10^3/uL (2.0-7.7); Basophil# 0.05 X10^3/uL; Basophil% 0.5 % (0-1); Hemoglobin 7.9 g/dL (13.0-16.5); Lymphocyte # 2.41 X10^3/ul (0.83-4.51); Mean Corp Hgb Conc 26.3 g/dL (32-36); Mean Corpuscular Hgb 19.3 pg (27.0-32.0); Mean Corpuscular Volume 73.2 fL (80-94); Mean Platelet Vol. 9.1 fl (6.2-12.0); Monocyte# 0.74 X10^3/uL; Monocyte% 7.4 % (0-10); NRBC Flagged by Analyzer 0 % (0-5); Neutrophil # 6.36 X10^3/uL (2.7-7.7); Neutrophil % 63.2 % (47-70); Platelet Count 457 K/mm3 (150-450); RBC Distribution Width CV 19.7 % (11.6-14.6); RBC Distribution Width SD 52.2 fl (35.1-43.9); White Blood Count 10.1 K/mm3 (4.4-11.0)
[2024-01-30 09:52] LABS: Anion Gap 8 (5-15); BUN 18 mg/dL (7-18); BUN/Creat Ratio 26.4 RATIO (10-20); Calcium,Total 9.1 mg/dL (8.5-10.1); Chloride 100 mmol/L (98-107); Creatinine, Serum 0.68 mg/dL (0.70-1.30); EST Glomerular Filtration Rate 128 mL/min (>60); Est Glom Filt Rate - Afr Amer 155 mL/min (>60); Glucose 193 mg/dL (74-106); Potassium 3.9 mmol/L (3.5-5.1); Sodium Level 138 mmol/L (136-145)
== END ==
LOC: OLS.WHLEAS 05:00
PROVIDERS: PCP Internal Medicine; Visit Provider Internal Medicine
DX: E11.9 Type 2 diabetes mellitus without complications (principal)
CPT/HCPCS: 36415; 80048; 85025

== ENCOUNTER → 2024-02-07 05:00 | Outpatient (REF) | payer OTHER, MEDICAID, SELFPAY ==
[2024-02-07 08:21] LABS: Absolute Lymphocyte Count 2.49 X10^3/uL (0.83-4.51); Absolute Neutrophil Count 4.8 X10^3/uL (2.0-7.7); Basophil# 0.04 X10^3/uL; Basophil% 0.5 % (0-1); Eosinophil# 0.38 X10^3/uL; Eosinophils% 4.5 % (0-5); Hematocrit 27.7 % (40-54); Hemoglobin 7.1 g/dL (13.0-16.5); Lymphocyte # 2.49 X10^3/ul (0.83-4.51); Lymphocyte % 29.7 % (19-41); Mean Corp Hgb Conc 25.6 g/dL (32-36); Mean Corpuscular Hgb 18.7 pg (27.0-32.0); Mean Corpuscular Volume 73.1 fL (80-94); Mean Platelet Vol. 9.7 fl (6.2-12.0); Monocyte# 0.69 X10^3/uL; Monocyte% 8.2 % (0-10); NRBC Flagged by Analyzer 0 % (0-5); Neutrophil # 4.75 X10^3/uL (2.7-7.7); Neutrophil % 56.6 % (47-70); Platelet Count 451 K/mm3 (150-450); RBC Distribution Width CV 19.7 % (11.6-14.6); RBC Distribution Width SD 51.3 fl (35.1-43.9); Red Blood Count 3.79 M/mm3 (4.6-6.2); White Blood Count 8.4 K/mm3 (4.4-11.0)
[2024-02-07 08:32] LABS: AST(SGOT) 10 U/L (15-37); Alanine Aminotransfer ALT/SGPT 12 U/L (16-61); Albumin, Serum 2.8 g/dL (3.2-5.0); Alkaline Phosphatase 74 U/L (45-117); Anion Gap 6 (5-15); BUN 18 mg/dL (7-18); BUN/Creat Ratio 23.9 RATIO (10-20); Chloride 101 mmol/L (98-107); Creatinine, Serum 0.75 mg/dL (0.70-1.30); EST Glomerular Filtration Rate 114 mL/min (>60); Est Glom Filt Rate - Afr Amer 138 mL/min (>60); Globulin 4.4 g/dL (2.2-4.2); Glucose 272 mg/dL (74-106); Potassium 4.1 mmol/L (3.5-5.1); Protein, Total 7.2 g/dL (6.4-8.2); Sodium Level 136 mmol/L (136-145)
[2024-02-07 08:42] LABS: Hemoglobin A1c 7.4 % (3.8-5.6)
== END ==
LOC: OLS.WHLEAS 05:00
PROVIDERS: PCP Internal Medicine; Visit Provider Internal Medicine
DX: E11.9 Type 2 diabetes mellitus without complications (principal)
CPT/HCPCS: 36415; 80048; 80076; 83036; 85025

== ENCOUNTER → 2024-02-08 05:02 | Outpatient (REF) | payer SELFPAY | LOC: OLS.WHLEAS 05:02 | PROVIDERS: PCP Internal Medicine; Visit Provider Internal Medicine | DX: D64.9 Anemia, unspecified (principal) ==

== ENCOUNTER 2024-02-09 11:30 | Outpatient (CLI) | payer OTHER, MEDICAID, SELFPAY ==
[2024-02-09 11:47] VITALS: BP 116/75; PULSE 87; RESP 16; TEMP 36.2; O2SAT 95; BMI 43.7
[2024-02-09 12:32] VITALS: BP 129/71; PULSE 87; RESP 16; TEMP 36.3; O2SAT 98
[2024-02-09 13:32] VITALS: BP 128/62; PULSE 95; RESP 16; TEMP 36.4; O2SAT 98
== END 2024-02-09 23:59 | disposition home or self-care (01) ==
PROVIDERS: PCP Internal Medicine; Referring Provider Nurse Practitioner Adult Health; Visit Provider Nurse Practitioner Adult Health
DX: D64.9 Anemia, unspecified (principal)
CPT/HCPCS: 36415; 36430; 86850; 86870; 86900; 86901; 86902; 86920; 86922; J7040; P9016; A4216

== ENCOUNTER → 2024-02-10 | Outpatient (REF) | payer OTHER, MEDICAID, SELFPAY ==
[2024-02-10 09:32] LABS: Absolute Lymphocyte Count 2.57 X10^3/uL (0.83-4.51); Absolute Neutrophil Count 5.1 X10^3/uL (2.0-7.7); Basophil# 0.03 X10^3/uL; Basophil% 0.3 % (0-1); Eosinophil# 0.52 X10^3/uL; Eosinophils% 5.7 % (0-5); Hematocrit 29.8 % (40-54); Lymphocyte # 2.57 X10^3/ul (0.83-4.51); Lymphocyte % 28.1 % (19-41); Mean Corp Hgb Conc 26.8 g/dL (32-36); Mean Corpuscular Hgb 19.7 pg (27.0-32.0); Mean Corpuscular Volume 73.2 fL (80-94); Mean Platelet Vol. 9.4 fl (6.2-12.0); Monocyte% 9.8 % (0-10); NRBC Flagged by Analyzer 0 % (0-5); Neutrophil # 5.09 X10^3/uL (2.7-7.7); Neutrophil % 55.7 % (47-70); POSITIVE MORPHOLOGY YES; Platelet Count 427 K/mm3 (150-450); RBC Distribution Width CV 20.1 % (11.6-14.6); RBC Distribution Width SD 52.9 fl (35.1-43.9); Red Blood Count 4.07 M/mm3 (4.6-6.2); White Blood Count 9.2 K/mm3 (4.4-11.0)
[2024-02-10 09:40] LABS: Differential Indicated SCAN CRITERIA MET
[2024-02-10 10:13] LABS: Anisocytosis 1+
== END ==
LOC: OLS.WHLEAS 05:00
PROVIDERS: PCP Internal Medicine; Visit Provider Internal Medicine
DX: D64.9 Anemia, unspecified (principal); G82.20 Paraplegia, unspecified
CPT/HCPCS: 36415; 85025

== ENCOUNTER → 2024-02-13 05:00 | Outpatient (REF) | payer OTHER, MEDICAID, SELFPAY ==
[2024-02-13 07:21] LABS: Absolute Lymphocyte Count 2.33 X10^3/uL (0.83-4.51); Absolute Neutrophil Count 8.8 X10^3/uL (2.0-7.7); Basophil# 0.05 X10^3/uL; Basophil% 0.4 % (0-1); Eosinophil# 0.54 X10^3/uL; Eosinophils% 4.2 % (0-5); Hematocrit 29.6 % (40-54); Hemoglobin 7.8 g/dL (13.0-16.5); Lymphocyte # 2.33 X10^3/ul (0.83-4.51); Mean Corp Hgb Conc 26.4 g/dL (32-36); Mean Corpuscular Hgb 19.2 pg (27.0-32.0); Mean Corpuscular Volume 72.7 fL (80-94); Mean Platelet Vol. 9.6 fl (6.2-12.0); Monocyte# 1.19 X10^3/uL; Monocyte% 9.2 % (0-10); NRBC Flagged by Analyzer 0.2 % (0-5); Neutrophil # 8.79 X10^3/uL (2.7-7.7); Neutrophil % 67.6 % (47-70); POSITIVE MORPHOLOGY YES; Platelet Count 397 K/mm3 (150-450); RBC Distribution Width CV 20.3 % (11.6-14.6); Red Blood Count 4.07 M/mm3 (4.6-6.2)
[2024-02-13 07:29] LABS: Differential Indicated SCAN CRITERIA MET
[2024-02-13 07:51] LABS: Anion Gap 7 (5-15); BUN 19 mg/dL (7-18); BUN/Creat Ratio 26.7 RATIO (10-20); Calcium,Total 8.9 mg/dL (8.5-10.1); Chloride 98 mmol/L (98-107); Creatinine, Serum 0.71 mg/dL (0.70-1.30); EST Glomerular Filtration Rate 122 mL/min (>60); Est Glom Filt Rate - Afr Amer 147 mL/min (>60); Glucose 213 mg/dL (74-106); Potassium 4.1 mmol/L (3.5-5.1); Sodium Level 134 mmol/L (136-145)
[2024-02-13 08:53] LABS: Anisocytosis 1+
== END ==
LOC: OLS.WHLEAS 05:00
PROVIDERS: PCP Internal Medicine; Visit Provider Internal Medicine
DX: E11.9 Type 2 diabetes mellitus without complications (principal)
CPT/HCPCS: 36415; 80048; 85025

== ENCOUNTER 2024-02-15 10:41 | Outpatient (CLI) | payer OTHER, MEDICAID, SELFPAY ==
[2024-02-15 11:03] VITALS: BP 126/55; PULSE 99; RESP 16; TEMP 36.3; O2SAT 93
[2024-02-15 11:42] VITALS: BP 119/60; PULSE 97; RESP 18; TEMP 36.2; O2SAT 93
[2024-02-15 12:51] VITALS: BP 117/61; PULSE 97; RESP 16; TEMP 36.2; O2SAT 95
[2024-02-15 13:45] VITALS: BP 129/55; PULSE 98; RESP 16
== END 2024-02-15 23:59 | disposition home or self-care (01) ==
LOC: MEDOUTP 10:42
PROVIDERS: PCP Internal Medicine; Referring Provider Internal Medicine; Visit Provider Internal Medicine
DX: D62 Acute posthemorrhagic anemia (principal); G82.20 Paraplegia, unspecified; J96.01 Acute respiratory failure with hypoxia; J15.9 Unspecified bacterial pneumonia; J91.8 Pleural effusion in other conditions classified elsewhere
CPT/HCPCS: 36430; 86850; 86900; 86901; 86902; 86920; 86922; J7040; P9016; A4216

== ENCOUNTER → 2024-02-16 05:00 | Outpatient (REF) | payer OTHER, MEDICAID, SELFPAY ==
[2024-02-16 08:45] LABS: Absolute Lymphocyte Count 2.17 X10^3/uL (0.83-4.51); Absolute Neutrophil Count 5.2 X10^3/uL (2.0-7.7); Basophil# 0.04 X10^3/uL; Basophil% 0.4 % (0-1); Eosinophil# 0.46 X10^3/uL; Eosinophils% 5.1 % (0-5); Hematocrit 30.5 % (40-54); Hemoglobin 8.3 g/dL (13.0-16.5); Lymphocyte # 2.17 X10^3/ul (0.83-4.51); Mean Corp Hgb Conc 27.2 g/dL (32-36); Mean Corpuscular Hgb 20.1 pg (27.0-32.0); Mean Corpuscular Volume 73.8 fL (80-94); Mean Platelet Vol. 9.8 fl (6.2-12.0); Monocyte# 1.11 X10^3/uL; Monocyte% 12.3 % (0-10); NRBC Flagged by Analyzer 0.2 % (0-5); Neutrophil # 5.16 X10^3/uL (2.7-7.7); Neutrophil % 57.2 % (47-70); POSITIVE MORPHOLOGY YES; Platelet Count 383 K/mm3 (150-450); RBC Distribution Width CV 20.5 % (11.6-14.6); RBC Distribution Width SD 54.2 fl (35.1-43.9); Red Blood Count 4.13 M/mm3 (4.6-6.2)
[2024-02-16 08:54] LABS: Differential Indicated SCAN CRITERIA MET
[2024-02-16 09:18] LABS: Anisocytosis 2+; Hypochromasia 2+
== END ==
LOC: OLS.WHLEAS 05:00
PROVIDERS: PCP Internal Medicine; Visit Provider Internal Medicine
DX: D50.9 Iron deficiency anemia, unspecified (principal)
CPT/HCPCS: 36415; 85025

== ENCOUNTER → 2024-02-16 | Outpatient (REF) | payer OTHER, SELFPAY | LOC: OLS.WHLEAS 12:00 | PROVIDERS: PCP Internal Medicine; Visit Provider Internal Medicine | DX: N31.9 Neuromuscular dysfunction of bladder, unspecified (principal) | CPT/HCPCS: 87070; 87077; 87186; 87205 ==

== ENCOUNTER → 2024-02-20 04:00 | Outpatient (REF) | payer OTHER, MEDICAID, SELFPAY ==
[2024-02-20 08:30] LABS: Absolute Lymphocyte Count 2.52 X10^3/uL (0.83-4.51); Absolute Neutrophil Count 5.3 X10^3/uL (2.0-7.7); Basophil# 0.06 X10^3/uL; Basophil% 0.7 % (0-1); Eosinophil# 0.45 X10^3/uL; Eosinophils% 4.9 % (0-5); Hematocrit 31.2 % (40-54); Hemoglobin 8.2 g/dL (13.0-16.5); Lymphocyte # 2.52 X10^3/ul (0.83-4.51); Lymphocyte % 27.3 % (19-41); Mean Corp Hgb Conc 26.3 g/dL (32-36); Mean Corpuscular Hgb 19.3 pg (27.0-32.0); Mean Corpuscular Volume 73.6 fL (80-94); Mean Platelet Vol. 9.3 fl (6.2-12.0); Monocyte# 0.77 X10^3/uL; Monocyte% 8.3 % (0-10); NRBC Flagged by Analyzer 0 % (0-5); Neutrophil # 5.34 X10^3/uL (2.7-7.7); Neutrophil % 57.8 % (47-70); POSITIVE MORPHOLOGY YES; Platelet Count 368 K/mm3 (150-450); RBC Distribution Width CV 20.6 % (11.6-14.6); RBC Distribution Width SD 54.5 fl (35.1-43.9); Red Blood Count 4.24 M/mm3 (4.6-6.2); White Blood Count 9.2 K/mm3 (4.4-11.0)
[2024-02-20 08:31] LABS: Differential Indicated SCAN CRITERIA MET
[2024-02-20 08:49] LABS: Anisocytosis 2+; Stomatocyte 1+
[2024-02-20 08:50] LABS: Polychromasia RARE
[2024-02-20 09:29] LABS: Anion Gap 5 (5-15); BUN 13 mg/dL (7-18); BUN/Creat Ratio 15.4 RATIO (10-20); Calcium,Total 8.9 mg/dL (8.5-10.1); Chloride 101 mmol/L (98-107); Creatinine, Serum 0.85 mg/dL (0.70-1.30); EST Glomerular Filtration Rate 99 mL/min (>60); Est Glom Filt Rate - Afr Amer 120 mL/min (>60); Glucose 162 mg/dL (74-106); Sodium Level 139 mmol/L (136-145)
== END ==
LOC: OLS.WHLEAS 04:00
PROVIDERS: PCP Internal Medicine; Visit Provider Internal Medicine
DX: E11.9 Type 2 diabetes mellitus without complications (principal)
CPT/HCPCS: 36415; 80048; 85025

== ENCOUNTER → 2024-02-27 | Outpatient (REF) | payer OTHER, SELFPAY ==
[2024-02-27 07:46] LABS: Absolute Lymphocyte Count 3.05 X10^3/uL (0.83-4.51); Basophil# 0.06 X10^3/uL; Basophil% 0.6 % (0-1); Eosinophils% 4.8 % (0-5); Hematocrit 31.1 % (40-54); Hemoglobin 8.5 g/dL (13.0-16.5); Lymphocyte # 3.05 X10^3/ul (0.83-4.51); Mean Corp Hgb Conc 27.3 g/dL (32-36); Mean Corpuscular Hgb 19.6 pg (27.0-32.0); Mean Corpuscular Volume 71.7 fL (80-94); Monocyte# 0.87 X10^3/uL; Monocyte% 8.3 % (0-10); NRBC Flagged by Analyzer 0 % (0-5); Neutrophil # 5.97 X10^3/uL (2.7-7.7); Neutrophil % 56.8 % (47-70); POSITIVE MORPHOLOGY YES; Platelet Count 438 K/mm3 (150-450); RBC Distribution Width CV 21.5 % (11.6-14.6); RBC Distribution Width SD 55.3 fl (35.1-43.9); Red Blood Count 4.34 M/mm3 (4.6-6.2); White Blood Count 10.5 K/mm3 (4.4-11.0)
[2024-02-27 08:04] LABS: Differential Indicated SCAN CRITERIA MET
[2024-02-27 08:14] LABS: Anion Gap 9 (5-15); BUN 21 mg/dL (7-18); BUN/Creat Ratio 25.2 RATIO (10-20); Calcium,Total 8.9 mg/dL (8.5-10.1); Chloride 99 mmol/L (98-107); Creatinine, Serum 0.83 mg/dL (0.70-1.30); EST Glomerular Filtration Rate 101 mL/min (>60); Est Glom Filt Rate - Afr Amer 122 mL/min (>60); Glucose 154 mg/dL (74-106); Potassium 4.4 mmol/L (3.5-5.1); Sodium Level 133 mmol/L (136-145)
[2024-02-27 10:05] LABS: Differential Comment SCANNED; Platelet Estimate ADEQUATE (ADEQ); Platelet Morphology LARGE
[2024-02-27 10:06] LABS: Hypochromasia 1+; Macrocytosis 1+; Microcytosis 2+; Ovalocyte 1+; Polychromasia 1+; Target Cells 1+
[2024-02-27 10:07] LABS: Anisocytosis 3+
== END ==
LOC: OLS.WHLEAS 05:00
PROVIDERS: PCP Internal Medicine; Visit Provider Internal Medicine
DX: E11.9 Type 2 diabetes mellitus without complications (principal)
CPT/HCPCS: 36415; 80048; 85025

== ENCOUNTER → 2024-03-05 05:00 | Outpatient (REF) | payer OTHER, MEDICAID, SELFPAY ==
[2024-03-05 09:57] LABS: Absolute Neutrophil Count 4.9 X10^3/uL (2.0-7.7); Basophil# 0.05 X10^3/uL; Basophil% 0.6 % (0-1); Eosinophil# 0.46 X10^3/uL; Eosinophils% 5.2 % (0-5); Hematocrit 29.4 % (40-54); Hemoglobin 8.2 g/dL (13.0-16.5); Lymphocyte % 30.4 % (19-41); Mean Corp Hgb Conc 27.9 g/dL (32-36); Mean Corpuscular Volume 71.9 fL (80-94); Mean Platelet Vol. 9.3 fl (6.2-12.0); Monocyte# 0.78 X10^3/uL; Monocyte% 8.8 % (0-10); NRBC Flagged by Analyzer 0 % (0-5); Neutrophil # 4.85 X10^3/uL (2.7-7.7); Neutrophil % 54.5 % (47-70); POSITIVE MORPHOLOGY YES; Platelet Count 356 K/mm3 (150-450); RBC Distribution Width CV 21.3 % (11.6-14.6); RBC Distribution Width SD 55.4 fl (35.1-43.9); Red Blood Count 4.09 M/mm3 (4.6-6.2); White Blood Count 8.9 K/mm3 (4.4-11.0)
[2024-03-05 09:59] LABS: Differential Indicated SCAN CRITERIA MET
[2024-03-05 10:44] LABS: Anion Gap 5 (5-15); BUN 16 mg/dL (7-18); BUN/Creat Ratio 23.2 RATIO (10-20); Calcium,Total 8.7 mg/dL (8.5-10.1); Chloride 102 mmol/L (98-107); Creatinine, Serum 0.69 mg/dL (0.70-1.30); EST Glomerular Filtration Rate 126 mL/min (>60); Est Glom Filt Rate - Afr Amer 152 mL/min (>60); Glucose 164 mg/dL (74-106); Potassium 4.1 mmol/L (3.5-5.1); Sodium Level 135 mmol/L (136-145)
[2024-03-05 11:05] LABS: Anisocytosis 2+
== END ==
LOC: OLS.WHLEAS 05:00
PROVIDERS: PCP Internal Medicine; Visit Provider Internal Medicine
DX: E11.9 Type 2 diabetes mellitus without complications (principal); G82.20 Paraplegia, unspecified
CPT/HCPCS: 36415; 80048; 85025

== ENCOUNTER → 2024-03-12 | Outpatient (REF) | payer OTHER, MEDICAID, SELFPAY ==
[2024-03-12 07:46] LABS: Absolute Lymphocyte Count 2.53 X10^3/uL (0.83-4.51); Absolute Neutrophil Count 4.2 X10^3/uL (2.0-7.7); Basophil# 0.06 X10^3/uL; Basophil% 0.7 % (0-1); Eosinophil# 0.44 X10^3/uL; Eosinophils% 5.3 % (0-5); Hematocrit 29.1 % (40-54); Hemoglobin 7.9 g/dL (13.0-16.5); Lymphocyte # 2.53 X10^3/ul (0.83-4.51); Lymphocyte % 30.7 % (19-41); Mean Corp Hgb Conc 27.1 g/dL (32-36); Mean Corpuscular Hgb 19.8 pg (27.0-32.0); Mean Corpuscular Volume 73.1 fL (80-94); Mean Platelet Vol. 9.1 fl (6.2-12.0); Monocyte% 10.9 % (0-10); NRBC Flagged by Analyzer 0 % (0-5); Neutrophil # 4.21 X10^3/uL (2.7-7.7); Neutrophil % 51.2 % (47-70); POSITIVE MORPHOLOGY YES; Platelet Count 326 K/mm3 (150-450); RBC Distribution Width CV 20.6 % (11.6-14.6); Red Blood Count 3.98 M/mm3 (4.6-6.2); White Blood Count 8.2 K/mm3 (4.4-11.0)
[2024-03-12 07:58] LABS: Anion Gap 6 (5-15); BUN 16 mg/dL (7-18); BUN/Creat Ratio 19.3 RATIO (10-20); Calcium,Total 8.3 mg/dL (8.5-10.1); Chloride 102 mmol/L (98-107); Creatinine, Serum 0.83 mg/dL (0.70-1.30); EST Glomerular Filtration Rate 102 mL/min (>60); Est Glom Filt Rate - Afr Amer 123 mL/min (>60); Glucose 220 mg/dL (74-106); Potassium 3.9 mmol/L (3.5-5.1); Sodium Level 139 mmol/L (136-145)
[2024-03-12 08:07] LABS: Differential Indicated SCAN CRITERIA MET
[2024-03-12 09:53] LABS: Anisocytosis 3+; Differential Comment SCANNED; Platelet Estimate ADEQUATE (ADEQ)
[2024-03-12 09:54] LABS: Hypochromasia 2+; Macrocytosis 1+; Microcytosis 1+; Ovalocyte 1+; Polychromasia 1+; Tear Drop Cell 1+
== END ==
LOC: OLS.WHLEAS 05:00
PROVIDERS: PCP Internal Medicine; Visit Provider Internal Medicine
DX: E11.9 Type 2 diabetes mellitus without complications (principal); J18.9 Pneumonia, unspecified organism
CPT/HCPCS: 36415; 80048; 85025

== ENCOUNTER → 2024-03-13 | Outpatient (REF) | payer OTHER, MEDICAID, SELFPAY ==
[2024-03-13 08:56] LABS: Ferritin 22 ng/mL (26-388); Iron 21 ug/dL (65-175); Iron Binding Capacity,Total 239 ug/dL (250-450); PERCENT IRON SATURATION 8.8 % (15.0-55.0)
== END ==
LOC: OLS.WHLEAS 05:00
PROVIDERS: PCP Internal Medicine; Visit Provider Internal Medicine
DX: D50.9 Iron deficiency anemia, unspecified (principal); E11.42 Type 2 diabetes mellitus with diabetic polyneuropathy; G47.33 Obstructive sleep apnea (adult) (pediatric); I50.32 Chronic diastolic (congestive) heart failure
CPT/HCPCS: 36415; 82728; 83540; 83550

== ENCOUNTER 2024-03-14 08:43 | Outpatient (CLI) | payer OTHER, MEDICAID, SELFPAY ==
[2024-03-14] VITALS (8 sets, daily range): BP systolic 118–142; BP diastolic 56–91; PULSE 97–106; RESP 16–18; TEMP 36.5–37.2; O2SAT 96–99; BMI 46.2
== END 2024-03-14 23:59 | disposition home or self-care (01) ==
LOC: MEDOUTP 08:47
PROVIDERS: PCP Internal Medicine; Referring Provider Nurse Practitioner Adult Health; Visit Provider Nurse Practitioner Adult Health
DX: D64.9 Anemia, unspecified (principal)
CPT/HCPCS: 36430; 86850; 86900; 86901; 86902; 86920; 86922; J7040; P9016; A4216

== ENCOUNTER → 2024-03-15 | Outpatient (REF) | payer OTHER, MEDICAID, SELFPAY ==
[2024-03-15 08:22] LABS: Absolute Lymphocyte Count 2.86 X10^3/uL (0.83-4.51); Absolute Neutrophil Count 4.5 X10^3/uL (2.0-7.7); Basophil# 0.05 X10^3/uL; Basophil% 0.6 % (0-1); Eosinophil# 0.41 X10^3/uL; Eosinophils% 4.7 % (0-5); Hematocrit 33.9 % (40-54); Hemoglobin 9.5 g/dL (13.0-16.5); Lymphocyte # 2.86 X10^3/ul (0.83-4.51); Mean Corpuscular Volume 74.8 fL (80-94); Mean Platelet Vol. 9.1 fl (6.2-12.0); Monocyte# 0.74 X10^3/uL; Monocyte% 8.5 % (0-10); NRBC Flagged by Analyzer 0 % (0-5); POSITIVE MORPHOLOGY YES; Platelet Count 353 K/mm3 (150-450); RBC Distribution Width CV 22.2 % (11.6-14.6); RBC Distribution Width SD 59.7 fl (35.1-43.9); Red Blood Count 4.53 M/mm3 (4.6-6.2); White Blood Count 8.7 K/mm3 (4.4-11.0)
[2024-03-15 08:26] LABS: Differential Indicated SCAN CRITERIA MET
[2024-03-15 08:58] LABS: Anisocytosis 1+
== END ==
LOC: OLS.WHLEAS 05:00
PROVIDERS: PCP Internal Medicine; Visit Provider Internal Medicine
DX: D50.9 Iron deficiency anemia, unspecified (principal)
CPT/HCPCS: 36415; 85025

== ENCOUNTER → 2024-03-19 | Outpatient (REF) | payer MEDICAID, SELFPAY ==
[2024-03-19 08:25] LABS: Absolute Neutrophil Count 6.5 X10^3/uL (2.0-7.7); Basophil# 0.05 X10^3/uL; Basophil% 0.5 % (0-1); Eosinophils% 3.8 % (0-5); Hemoglobin 9.8 g/dL (13.0-16.5); Lymphocyte % 25.6 % (19-41); Mean Corpuscular Hgb 21.4 pg (27.0-32.0); Mean Corpuscular Volume 76.3 fL (80-94); Mean Platelet Vol. 9.2 fl (6.2-12.0); Monocyte# 0.86 X10^3/uL; Monocyte% 8.2 % (0-10); NRBC Flagged by Analyzer 0 % (0-5); Neutrophil # 6.45 X10^3/uL (2.7-7.7); Neutrophil % 61.2 % (47-70); POSITIVE MORPHOLOGY YES; Platelet Count 360 K/mm3 (150-450); RBC Distribution Width CV 23.4 % (11.6-14.6); RBC Distribution Width SD 63.6 fl (35.1-43.9); Red Blood Count 4.59 M/mm3 (4.6-6.2); White Blood Count 10.5 K/mm3 (4.4-11.0)
[2024-03-19 08:27] LABS: Differential Indicated SCAN CRITERIA MET
[2024-03-19 08:45] LABS: Anion Gap 7 (5-15); BUN 14 mg/dL (7-18); BUN/Creat Ratio 21.6 RATIO (10-20); Calcium,Total 8.9 mg/dL (8.5-10.1); Chloride 99 mmol/L (98-107); Creatinine, Serum 0.65 mg/dL (0.70-1.30); EST Glomerular Filtration Rate 135 mL/min (>60); Est Glom Filt Rate - Afr Amer 163 mL/min (>60); Glucose 163 mg/dL (74-106); Potassium 3.7 mmol/L (3.5-5.1); Sodium Level 138 mmol/L (136-145)
[2024-03-19 09:23] LABS: Anisocytosis 2+; Differential Comment SCANNED; Platelet Estimate ADEQUATE (ADEQ); Polychromasia 1+
[2024-03-19 09:24] LABS: Platelet Morphology CLUMPED; Stomatocyte 2+
== END | disposition home or self-care (01) ==
LOC: OLS.WHLEAS 05:00
PROVIDERS: PCP Internal Medicine; Visit Provider Internal Medicine
DX: E11.9 Type 2 diabetes mellitus without complications (principal)
CPT/HCPCS: 36415; 80048; 85025

== ENCOUNTER → 2024-03-22 | Outpatient (REF) | payer MEDICAID, SELFPAY | END | disposition home or self-care (01) | LOC: OLS.WHLEAS 12:00 | PROVIDERS: PCP Internal Medicine; Visit Provider Internal Medicine | DX: L89.154 Pressure ulcer of sacral region, stage 4 (principal) | CPT/HCPCS: 87070; 87077; 87186; 87205 ==

== ENCOUNTER → 2024-03-26 | Outpatient (REF) | payer MEDICAID, SELFPAY ==
[2024-03-26 08:02] LABS: Erythrocyte Sedimentation Rate 78 mm/hr (0-20)
[2024-03-26 08:16] LABS: Anion Gap 7 (5-15); BUN 16 mg/dL (7-18); BUN/Creat Ratio 23.4 RATIO (10-20); Calcium,Total 8.7 mg/dL (8.5-10.1); Chloride 100 mmol/L (98-107); Creatinine, Serum 0.68 mg/dL (0.70-1.30); EST Glomerular Filtration Rate 127 mL/min (>60); Est Glom Filt Rate - Afr Amer 153 mL/min (>60); Glucose 157 mg/dL (74-106); Sodium Level 138 mmol/L (136-145)
[2024-03-26 13:19] LABS: Absolute Lymphocyte Count 2.46 X10^3/uL (0.83-4.51); Basophil# 0.06 X10^3/uL; Basophil% 0.6 % (0-1); Differential Indicated SCAN CRITERIA MET; Eosinophil# 0.43 X10^3/uL; Eosinophils% 4.3 % (0-5); Hematocrit 35.7 % (40-54); Lymphocyte # 2.46 X10^3/ul (0.83-4.51); Lymphocyte % 24.7 % (19-41); Mean Corpuscular Hgb 21.1 pg (27.0-32.0); Mean Corpuscular Volume 75.5 fL (80-94); Mean Platelet Vol. 9.2 fl (6.2-12.0); Monocyte# 0.94 X10^3/uL; Monocyte% 9.4 % (0-10); NRBC Flagged by Analyzer 0 % (0-5); Neutrophil # 6.02 X10^3/uL (2.7-7.7); Neutrophil % 60.6 % (47-70); POSITIVE MORPHOLOGY YES; Platelet Count 424 K/mm3 (150-450); RBC Distribution Width CV 23.3 % (11.6-14.6); RBC Distribution Width SD 63.5 fl (35.1-43.9); Red Blood Count 4.73 M/mm3 (4.6-6.2)
[2024-03-26 13:52] LABS: Anisocytosis 2+; Hypochromasia 1+
== END | disposition home or self-care (01) ==
LOC: OLS.WHLEAS 04:00
PROVIDERS: PCP Internal Medicine; Referring Provider Internal Medicine; Visit Provider Internal Medicine
DX: E11.9 Type 2 diabetes mellitus without complications (principal)
CPT/HCPCS: 36415; 80048; 85025; 85652; 86140

== ENCOUNTER → 2024-04-02 | Outpatient (REF) | payer MEDICAID, SELFPAY ==
[2024-04-02 06:52] LABS: Absolute Lymphocyte Count 3.08 X10^3/uL (0.83-4.51); Absolute Neutrophil Count 5.7 X10^3/uL (2.0-7.7); Basophil# 0.05 X10^3/uL; Basophil% 0.5 % (0-1); Lymphocyte # 3.08 X10^3/ul (0.83-4.51); Lymphocyte % 30.5 % (19-41); Mean Corp Hgb Conc 27.8 g/dL (32-36); Mean Corpuscular Volume 75.6 fL (80-94); Mean Platelet Vol. 9.1 fl (6.2-12.0); Monocyte# 0.79 X10^3/uL; Monocyte% 7.8 % (0-10); NRBC Flagged by Analyzer 0 % (0-5); Neutrophil % 56.5 % (47-70); POSITIVE MORPHOLOGY YES; Platelet Count 428 K/mm3 (150-450); RBC Distribution Width CV 22.5 % (11.6-14.6); RBC Distribution Width SD 60.6 fl (35.1-43.9); Red Blood Count 4.76 M/mm3 (4.6-6.2); White Blood Count 10.1 K/mm3 (4.4-11.0)
[2024-04-02 07:08] LABS: Anion Gap 4 (5-15); BUN 16 mg/dL (7-18); BUN/Creat Ratio 28.8 RATIO (10-20); Chloride 100 mmol/L (98-107); Creatinine, Serum 0.56 mg/dL (0.70-1.30); EST Glomerular Filtration Rate 161 mL/min (>60); Est Glom Filt Rate - Afr Amer 195 mL/min (>60); Glucose 159 mg/dL (74-106); Sodium Level 136 mmol/L (136-145)
[2024-04-02 07:39] LABS: Differential Indicated SCAN CRITERIA MET
[2024-04-02 09:47] LABS: Anisocytosis 1+
== END | disposition home or self-care (01) ==
LOC: OLS.WHLEAS 05:00
PROVIDERS: PCP Internal Medicine; Visit Provider Internal Medicine
DX: E11.9 Type 2 diabetes mellitus without complications (principal)
CPT/HCPCS: 36415; 80048; 85025

== ENCOUNTER 2024-04-04 12:16 | Outpatient (CLI) | payer MEDICAID, SELFPAY ==
[2024-04-04 12:36] VITALS: BP 126/65; PULSE 81; RESP 16; TEMP 35.9; O2SAT 97
[2024-04-04] MEDS: Iron Sucrose Complex 200 MG in Syringe 1 EACH IV (13:01)
[2024-04-04] MEDS: 0.9% NaCl Peripheral Flush Adult/Peds IV ×2 (13:04→13:10)
[2024-04-04 13:44] VITALS: BP 135/68; PULSE 89; RESP 16; TEMP 36; O2SAT 97
== END 2024-04-04 23:59 | disposition home or self-care (01) ==
LOC: MEDOUTP 12:18
PROVIDERS: PCP Internal Medicine; Referring Provider Internal Medicine; Visit Provider Internal Medicine
DX: D50.9 Iron deficiency anemia, unspecified (principal)
CPT/HCPCS: 96374; J1756; J7050; A4216

== ENCOUNTER 2024-04-06 12:14 | Outpatient (CLI) | payer MEDICAID, SELFPAY ==
[2024-04-06 12:35] VITALS: BP 125/59; PULSE 92; RESP 16; TEMP 36.1; O2SAT 96
[2024-04-06] MEDS: 0.9% NaCl Peripheral Flush Adult/Peds IV ×2 (12:39→13:01)
[2024-04-06] MEDS: Iron Sucrose Complex 200 MG in Syringe 1 EACH IV (12:54)
== END 2024-04-06 23:59 | disposition home or self-care (01) ==
LOC: MEDOUTP 12:14
PROVIDERS: PCP Internal Medicine; Referring Provider Internal Medicine; Visit Provider Internal Medicine
DX: D50.9 Iron deficiency anemia, unspecified (principal)
CPT/HCPCS: 96374; J1756; A4216

== ENCOUNTER 2024-04-09 09:07 | Outpatient (CLI) | payer MEDICAID, SELFPAY ==
[2024-04-09 10:06] VITALS: BP 136/63; PULSE 85; RESP 16; TEMP 36.2; O2SAT 97; BMI 46.3
[2024-04-09] MEDS: 0.9% NaCl Peripheral Flush Adult/Peds IV ×3 (10:28→10:39)
[2024-04-09] MEDS: Iron Sucrose Complex 200 MG in Syringe 1 EACH IV (10:28)
[2024-04-09 10:38] VITALS: BP 132/59; PULSE 91; RESP 16; TEMP 36; O2SAT 96
== END 2024-04-09 23:59 | disposition home or self-care (01) ==
LOC: MEDOUTP 09:07
PROVIDERS: PCP Internal Medicine; Referring Provider Internal Medicine; Visit Provider Internal Medicine
DX: D50.9 Iron deficiency anemia, unspecified (principal)
CPT/HCPCS: 96374; 36415; 80048; 85025; J1756; A4216

== ENCOUNTER → 2024-04-09 | Outpatient (REF) | payer MEDICAID, SELFPAY ==
[2024-04-09 07:54] LABS: Anion Gap 6 (5-15); BUN 16 mg/dL (7-18); Calcium,Total 8.7 mg/dL (8.5-10.1); Chloride 99 mmol/L (98-107); Creatinine, Serum 0.67 mg/dL (0.70-1.30); EST Glomerular Filtration Rate 131 mL/min (>60); Est Glom Filt Rate - Afr Amer 158 mL/min (>60); Glucose 152 mg/dL (74-106); Potassium 3.7 mmol/L (3.5-5.1); Sodium Level 136 mmol/L (136-145)
[2024-04-09 07:55] LABS: Absolute Lymphocyte Count 2.81 X10^3/uL (0.83-4.51); Absolute Neutrophil Count 6.2 X10^3/uL (2.0-7.7); Basophil# 0.06 X10^3/uL; Basophil% 0.6 % (0-1); Eosinophil# 0.46 X10^3/uL; Eosinophils% 4.4 % (0-5); Hematocrit 35.6 % (40-54); Hemoglobin 9.8 g/dL (13.0-16.5); Lymphocyte # 2.81 X10^3/ul (0.83-4.51); Lymphocyte % 27.1 % (19-41); Mean Corp Hgb Conc 27.5 g/dL (32-36); Mean Corpuscular Volume 76.4 fL (80-94); Mean Platelet Vol. 9.4 fl (6.2-12.0); Monocyte# 0.73 X10^3/uL; Monocyte% 7.1 % (0-10); NRBC Flagged by Analyzer 0 % (0-5); Neutrophil # 6.24 X10^3/uL (2.7-7.7); Neutrophil % 60.3 % (47-70); POSITIVE MORPHOLOGY YES; Platelet Count 291 K/mm3 (150-450); RBC Distribution Width CV 22.5 % (11.6-14.6); RBC Distribution Width SD 60.8 fl (35.1-43.9); Red Blood Count 4.66 M/mm3 (4.6-6.2); White Blood Count 10.4 K/mm3 (4.4-11.0)
[2024-04-09 07:58] LABS: Differential Indicated SCAN CRITERIA MET
[2024-04-09 09:48] LABS: Anisocytosis 2+; Differential Comment SCANNED; Hypochromasia 1+; Microcytosis 1+; Platelet Estimate ADEQUATE (ADEQ); Polychromasia 1+
[2024-04-09 09:49] LABS: Basophilic Stippling RARE; Ovalocyte 1+; Target Cells RARE
== END | disposition home or self-care (01) ==
LOC: OLS.WHLEAS 04:00
PROVIDERS: PCP Internal Medicine; Referring Provider Internal Medicine; Visit Provider Internal Medicine
DX: E11.9 Type 2 diabetes mellitus without complications (principal); J15.9 Unspecified bacterial pneumonia; G82.20 Paraplegia, unspecified; J91.8 Pleural effusion in other conditions classified elsewhere; D62 Acute posthemorrhagic anemia
CPT/HCPCS: 36415; 80048; 85025

== ENCOUNTER 2024-04-11 12:31 | Outpatient (CLI) | payer MEDICAID, SELFPAY ==
[2024-04-11 12:41] VITALS: BP 116/63; PULSE 93; RESP 16; TEMP 36.8; O2SAT 96
[2024-04-11] MEDS: 0.9% NaCl Peripheral Flush Adult/Peds IV ×3 (13:09→13:20)
[2024-04-11] MEDS: Iron Sucrose Complex 200 MG in Syringe 1 EACH IV (13:11)
== END 2024-04-11 23:59 | disposition home or self-care (01) ==
LOC: MEDOUTP 12:31
PROVIDERS: PCP Internal Medicine; Referring Provider Internal Medicine; Visit Provider Internal Medicine
DX: D50.9 Iron deficiency anemia, unspecified (principal)
CPT/HCPCS: 96374; J1756; A4216

== ENCOUNTER 2024-04-13 12:22 | Outpatient (CLI) | payer MEDICAID, SELFPAY ==
[2024-04-13 12:36] VITALS: BP 103/53; PULSE 108; RESP 16; TEMP 36.3; O2SAT 90; BMI 46.2
[2024-04-13] MEDS: Iron Sucrose Complex 200 MG in Syringe 1 EACH IV (12:43)
[2024-04-13] MEDS: 0.9% NaCl Peripheral Flush Adult/Peds IV (12:55)
== END 2024-04-13 23:59 | disposition home or self-care (01) ==
LOC: MEDOUTP 12:23
PROVIDERS: PCP Internal Medicine; Referring Provider Internal Medicine; Visit Provider Internal Medicine
DX: D50.9 Iron deficiency anemia, unspecified (principal)
CPT/HCPCS: 96374; J1756; A4216

== ENCOUNTER → 2024-04-16 | Outpatient (REF) | payer MEDICAID, SELFPAY ==
[2024-04-16 08:37] LABS: Absolute Lymphocyte Count 2.53 X10^3/uL (0.83-4.51); Absolute Neutrophil Count 6.1 X10^3/uL (2.0-7.7); Basophil# 0.05 X10^3/uL; Basophil% 0.5 % (0-1); Eosinophil# 0.46 X10^3/uL; Eosinophils% 4.5 % (0-5); Hemoglobin 9.3 g/dL (13.0-16.5); Lymphocyte # 2.53 X10^3/ul (0.83-4.51); Lymphocyte % 24.8 % (19-41); Mean Corp Hgb Conc 27.4 g/dL (32-36); Mean Corpuscular Hgb 21.4 pg (27.0-32.0); Mean Corpuscular Volume 78.3 fL (80-94); Mean Platelet Vol. 9.4 fl (6.2-12.0); Monocyte# 1.07 X10^3/uL; Monocyte% 10.5 % (0-10); NRBC Flagged by Analyzer 0 % (0-5); Neutrophil # 6.05 X10^3/uL (2.7-7.7); Neutrophil % 59.2 % (47-70); POSITIVE MORPHOLOGY YES; Platelet Count 319 K/mm3 (150-450); RBC Distribution Width CV 23.1 % (11.6-14.6); RBC Distribution Width SD 65.5 fl (35.1-43.9); Red Blood Count 4.34 M/mm3 (4.6-6.2); White Blood Count 10.2 K/mm3 (4.4-11.0)
[2024-04-16 08:41] LABS: Differential Indicated SCAN CRITERIA MET
[2024-04-16 09:18] LABS: Anion Gap 6 (5-15); BUN 17 mg/dL (7-18); BUN/Creat Ratio 28.3 RATIO (10-20); Calcium,Total 8.8 mg/dL (8.5-10.1); Chloride 102 mmol/L (98-107); EST Glomerular Filtration Rate 147 mL/min (>60); Est Glom Filt Rate - Afr Amer 178 mL/min (>60); Glucose 163 mg/dL (74-106); Potassium 3.5 mmol/L (3.5-5.1); Sodium Level 136 mmol/L (136-145)
[2024-04-16 09:39] LABS: Anisocytosis 2+
== END | disposition home or self-care (01) ==
LOC: OLS.WHLEAS 05:00
PROVIDERS: PCP Internal Medicine; Visit Provider Internal Medicine
DX: E11.9 Type 2 diabetes mellitus without complications (principal)
CPT/HCPCS: 36415; 80048; 85025

== ENCOUNTER → 2024-04-23 | Outpatient (REF) | payer MEDICAID, SELFPAY ==
[2024-04-23 08:58] LABS: Absolute Lymphocyte Count 2.49 X10^3/uL (0.83-4.51); Absolute Neutrophil Count 6.8 X10^3/uL (2.0-7.7); Basophil# 0.05 X10^3/uL; Basophil% 0.5 % (0-1); Differential Indicated SCAN CRITERIA MET; Eosinophil# 0.34 X10^3/uL; Eosinophils% 3.3 % (0-5); Hematocrit 37.7 % (40-54); Hemoglobin 10.6 g/dL (13.0-16.5); Lymphocyte # 2.49 X10^3/ul (0.83-4.51); Lymphocyte % 23.9 % (19-41); Mean Corp Hgb Conc 28.1 g/dL (32-36); Mean Corpuscular Hgb 21.8 pg (27.0-32.0); Mean Corpuscular Volume 77.6 fL (80-94); Monocyte# 0.71 X10^3/uL; Monocyte% 6.8 % (0-10); NRBC Flagged by Analyzer 0 % (0-5); Neutrophil # 6.77 X10^3/uL (2.7-7.7); Neutrophil % 64.8 % (47-70); POSITIVE MORPHOLOGY YES; Platelet Count 397 K/mm3 (150-450); RBC Distribution Width CV 22.7 % (11.6-14.6); RBC Distribution Width SD 64.3 fl (35.1-43.9); Red Blood Count 4.86 M/mm3 (4.6-6.2); White Blood Count 10.4 K/mm3 (4.4-11.0)
[2024-04-23 09:04] LABS: Anion Gap 6 (5-15); BUN 16 mg/dL (7-18); BUN/Creat Ratio 26.3 RATIO (10-20); Calcium,Total 9.4 mg/dL (8.5-10.1); Chloride 101 mmol/L (98-107); Creatinine, Serum 0.61 mg/dL (0.70-1.30); EST Glomerular Filtration Rate 145 mL/min (>60); Est Glom Filt Rate - Afr Amer 176 mL/min (>60); Glucose 178 mg/dL (74-106); Potassium 3.6 mmol/L (3.5-5.1); Sodium Level 139 mmol/L (136-145)
[2024-04-23 09:47] LABS: Anisocytosis 1+
== END | disposition home or self-care (01) ==
LOC: OLS.WHLEAS 05:00
PROVIDERS: PCP Internal Medicine; Visit Provider Internal Medicine
DX: E11.9 Type 2 diabetes mellitus without complications (principal); J18.9 Pneumonia, unspecified organism; D62 Acute posthemorrhagic anemia
CPT/HCPCS: 36415; 80048; 85025

== ENCOUNTER → 2024-04-30 | Outpatient (REF) | payer MEDICAID, SELFPAY ==
[2024-04-30 08:16] LABS: Absolute Lymphocyte Count 2.75 X10^3/uL (0.83-4.51); Absolute Neutrophil Count 6.2 X10^3/uL (2.0-7.7); Basophil# 0.06 X10^3/uL; Basophil% 0.6 % (0-1); Eosinophil# 0.38 X10^3/uL; Eosinophils% 3.7 % (0-5); Hematocrit 35.6 % (40-54); Hemoglobin 9.9 g/dL (13.0-16.5); Lymphocyte # 2.75 X10^3/ul (0.83-4.51); Lymphocyte % 26.9 % (19-41); Mean Corp Hgb Conc 27.8 g/dL (32-36); Mean Corpuscular Hgb 22.1 pg (27.0-32.0); Mean Corpuscular Volume 79.6 fL (80-94); Monocyte# 0.77 X10^3/uL; Monocyte% 7.5 % (0-10); NRBC Flagged by Analyzer 0 % (0-5); Neutrophil # 6.22 X10^3/uL (2.7-7.7); Neutrophil % 60.8 % (47-70); POSITIVE MORPHOLOGY YES; Platelet Count 401 K/mm3 (150-450); RBC Distribution Width CV 21.9 % (11.6-14.6); RBC Distribution Width SD 62.6 fl (35.1-43.9); Red Blood Count 4.47 M/mm3 (4.6-6.2); White Blood Count 10.2 K/mm3 (4.4-11.0)
[2024-04-30 08:17] LABS: Differential Indicated SCAN CRITERIA MET
[2024-04-30 08:34] LABS: Hemoglobin A1c 6.4 % (3.8-5.6)
[2024-04-30 09:27] LABS: Anisocytosis 1+
[2024-04-30 09:59] LABS: AST(SGOT) 14 U/L (15-37); Alanine Aminotransfer ALT/SGPT 16 U/L (16-61); Albumin, Serum 2.4 g/dL (3.2-5.0); Alkaline Phosphatase 86 U/L (45-117); Anion Gap 6 (5-15); BUN 17 mg/dL (7-18); BUN/Creat Ratio 26.2 RATIO (10-20); Bilirubin, Direct < 0.05 mg/dL (0.00-0.30); Calcium,Total 8.6 mg/dL (8.5-10.1); Chloride 102 mmol/L (98-107); Cholesterol 144 mg/dL (200); Creatinine, Serum 0.65 mg/dL (0.70-1.30); EST Glomerular Filtration Rate 135 mL/min (>60); Est Glom Filt Rate - Afr Amer 163 mL/min (>60); Globulin 4.7 g/dL (2.2-4.2); Glucose 182 mg/dL (74-106); High Density Lipoprotein 34 mg/dL; Potassium 3.5 mmol/L (3.5-5.1); Protein, Total 7.1 g/dL (6.4-8.2); Sodium Level 137 mmol/L (136-145); Triglycerides 279 mg/dL; Very Low Density Lipoprotein 56 mg/dL (5-40)
== END | disposition home or self-care (01) ==
LOC: OLS.WHLEAS 05:00
PROVIDERS: PCP Internal Medicine; Visit Provider Internal Medicine
DX: E11.9 Type 2 diabetes mellitus without complications (principal); G82.20 Paraplegia, unspecified; I50.32 Chronic diastolic (congestive) heart failure; E66.01 Morbid (severe) obesity due to excess calories
CPT/HCPCS: 36415; 80048; 80061; 80076; 83036; 85025

== ENCOUNTER → 2024-05-07 | Outpatient (REF) | payer MEDICAID, SELFPAY ==
[2024-05-07 08:16] LABS: Absolute Lymphocyte Count 2.66 X10^3/uL (0.83-4.51); Absolute Neutrophil Count 5.2 X10^3/uL (2.0-7.7); Basophil# 0.05 X10^3/uL; Basophil% 0.5 % (0-1); Eosinophil# 0.49 X10^3/uL; Eosinophils% 5.3 % (0-5); Hematocrit 35.9 % (40-54); Lymphocyte # 2.66 X10^3/ul (0.83-4.51); Lymphocyte % 28.9 % (19-41); Mean Corp Hgb Conc 27.9 g/dL (32-36); Mean Corpuscular Hgb 21.9 pg (27.0-32.0); Mean Corpuscular Volume 78.6 fL (80-94); Mean Platelet Vol. 8.8 fl (6.2-12.0); Monocyte# 0.81 X10^3/uL; Monocyte% 8.8 % (0-10); NRBC Flagged by Analyzer 0 % (0-5); Neutrophil # 5.17 X10^3/uL (2.7-7.7); Neutrophil % 56.2 % (47-70); POSITIVE MORPHOLOGY YES; Platelet Count 371 K/mm3 (150-450); RBC Distribution Width SD 60.2 fl (35.1-43.9); Red Blood Count 4.57 M/mm3 (4.6-6.2); White Blood Count 9.2 K/mm3 (4.4-11.0)
[2024-05-07 08:20] LABS: Differential Indicated SCAN CRITERIA MET
[2024-05-07 08:30] LABS: Anion Gap 5 (5-15); BUN 14 mg/dL (7-18); BUN/Creat Ratio 21.9 RATIO (10-20); Calcium,Total 8.6 mg/dL (8.5-10.1); Chloride 100 mmol/L (98-107); Creatinine, Serum 0.64 mg/dL (0.70-1.30); EST Glomerular Filtration Rate 138 mL/min (>60); Est Glom Filt Rate - Afr Amer 166 mL/min (>60); Glucose 152 mg/dL (74-106); Potassium 4.2 mmol/L (3.5-5.1); Sodium Level 137 mmol/L (136-145)
[2024-05-07 08:44] LABS: Differential Comment SCANNED
== END | disposition home or self-care (01) ==
LOC: OLS.WHLEAS 05:00
PROVIDERS: PCP Internal Medicine; Visit Provider Internal Medicine
DX: E11.9 Type 2 diabetes mellitus without complications (principal)
CPT/HCPCS: 36415; 80048; 85025

== ENCOUNTER → 2024-05-14 | Outpatient (REF) | payer MEDICAID, SELFPAY ==
[2024-05-14 08:21] LABS: Absolute Lymphocyte Count 2.78 X10^3/uL (0.83-4.51); Absolute Neutrophil Count 6.1 X10^3/uL (2.0-7.7); Basophil# 0.07 X10^3/uL; Basophil% 0.7 % (0-1); Eosinophil# 0.43 X10^3/uL; Eosinophils% 4.2 % (0-5); Hematocrit 34.6 % (40-54); Hemoglobin 9.7 g/dL (13.0-16.5); Lymphocyte # 2.78 X10^3/ul (0.83-4.51); Lymphocyte % 26.9 % (19-41); Mean Corpuscular Hgb 22.2 pg (27.0-32.0); Mean Corpuscular Volume 79.2 fL (80-94); Monocyte# 0.89 X10^3/uL; Monocyte% 8.6 % (0-10); NRBC Flagged by Analyzer 0 % (0-5); Neutrophil # 6.12 X10^3/uL (2.7-7.7); POSITIVE MORPHOLOGY YES; Platelet Count 372 K/mm3 (150-450); RBC Distribution Width CV 20.8 % (11.6-14.6); RBC Distribution Width SD 60.1 fl (35.1-43.9); Red Blood Count 4.37 M/mm3 (4.6-6.2); White Blood Count 10.4 K/mm3 (4.4-11.0)
[2024-05-14 08:26] LABS: Differential Indicated SCAN CRITERIA MET
[2024-05-14 08:42] LABS: Anion Gap 6 (5-15); BUN 15 mg/dL (7-18); Calcium,Total 8.8 mg/dL (8.5-10.1); Chloride 98 mmol/L (98-107); Creatinine, Serum 0.68 mg/dL (0.70-1.30); EST Glomerular Filtration Rate 128 mL/min (>60); Est Glom Filt Rate - Afr Amer 154 mL/min (>60); Glucose 215 mg/dL (74-106); Potassium 3.7 mmol/L (3.5-5.1); Sodium Level 135 mmol/L (136-145)
== END | disposition home or self-care (01) ==
LOC: OLS.WHLEAS 05:00
PROVIDERS: PCP Internal Medicine; Visit Provider Internal Medicine
DX: E11.9 Type 2 diabetes mellitus without complications (principal)
CPT/HCPCS: 36415; 80048; 85025

== ENCOUNTER → 2024-05-18 05:00 | Outpatient (REF) | payer MEDICAID, SELFPAY ==
[2024-05-18 09:42] LABS: ALB/GLOB Ratio 0.5 RATIO (0.9-2.4); AST(SGOT) 16 U/L (15-37); Alanine Aminotransfer ALT/SGPT 20 U/L (16-61); Albumin, Serum 2.5 g/dL (3.2-5.0); Alkaline Phosphatase 85 U/L (45-117); Anion Gap 5 (5-15); BUN 15 mg/dL (7-18); BUN/Creat Ratio 22.2 RATIO (10-20); Calcium,Total 8.8 mg/dL (8.5-10.1); Chloride 100 mmol/L (98-107); Creatinine, Serum 0.68 mg/dL (0.70-1.30); EST Glomerular Filtration Rate 129 mL/min (>60); Est Glom Filt Rate - Afr Amer 156 mL/min (>60); Ferritin 129 ng/mL (26-388); Globulin 4.9 g/dL (2.2-4.2); Glucose 186 mg/dL (74-106); Iron 35 ug/dL (65-175); Iron Binding Capacity,Total 204 ug/dL (250-450); LDH 211 U/L (87-241); Potassium 4.3 mmol/L (3.5-5.1); Protein, Total 7.4 g/dL (6.4-8.2); Sodium Level 136 mmol/L (136-145)
== END ==
LOC: OLS.WHLEAS 05:00
PROVIDERS: PCP Internal Medicine; Visit Provider Internal Medicine
DX: D50.9 Iron deficiency anemia, unspecified (principal); G82.20 Paraplegia, unspecified; L89.154 Pressure ulcer of sacral region, stage 4; E11.42 Type 2 diabetes mellitus with diabetic polyneuropathy; G47.33 Obstructive sleep apnea (adult) (pediatric); I50.32 Chronic diastolic (congestive) heart failure
CPT/HCPCS: 36415; 80053; 82728; 83540; 83550; 83615; 86140

== ENCOUNTER → 2024-05-21 | Outpatient (REF) | payer MEDICAID, SELFPAY ==
[2024-05-21 09:33] LABS: Anion Gap 6 (5-15); BUN 14 mg/dL (7-18); BUN/Creat Ratio 23.1 RATIO (10-20); Calcium,Total 8.8 mg/dL (8.5-10.1); Chloride 98 mmol/L (98-107); Creatinine, Serum 0.61 mg/dL (0.70-1.30); EST Glomerular Filtration Rate 146 mL/min (>60); Est Glom Filt Rate - Afr Amer 176 mL/min (>60); Glucose 162 mg/dL (74-106); Potassium 3.6 mmol/L (3.5-5.1); Sodium Level 135 mmol/L (136-145)
[2024-05-21 09:41] LABS: Erythrocyte Sedimentation Rate 67 mm/hr (0-20)
[2024-05-21 10:01] LABS: Absolute Neutrophil Count 6.2 X10^3/uL (2.0-7.7); Basophil# 0.06 X10^3/uL; Basophil% 0.6 % (0-1); Eosinophil# 0.39 X10^3/uL; Eosinophils% 3.7 % (0-5); Hematocrit 34.8 % (40-54); Lymphocyte % 25.7 % (19-41); Mean Corp Hgb Conc 28.7 g/dL (32-36); Mean Corpuscular Hgb 22.7 pg (27.0-32.0); Mean Corpuscular Volume 79.1 fL (80-94); Mean Platelet Vol. 9.2 fl (6.2-12.0); Monocyte# 1.03 X10^3/uL; Monocyte% 9.8 % (0-10); NRBC Flagged by Analyzer 0.2 % (0-5); Neutrophil # 6.22 X10^3/uL (2.7-7.7); Neutrophil % 59.2 % (47-70); POSITIVE MORPHOLOGY YES; Platelet Count 354 K/mm3 (150-450); RBC Distribution Width CV 20.3 % (11.6-14.6); RBC Distribution Width SD 58.4 fl (35.1-43.9); White Blood Count 10.5 K/mm3 (4.4-11.0)
[2024-05-21 10:17] LABS: Differential Indicated SCAN CRITERIA MET
[2024-05-21 10:49] LABS: Anisocytosis 1+; Ovalocyte 1+; Polychromasia 1+
== END | disposition home or self-care (01) ==
LOC: OLS.WHLEAS 05:00
PROVIDERS: PCP Internal Medicine; Visit Provider Internal Medicine
DX: E11.9 Type 2 diabetes mellitus without complications (principal); J15.9 Unspecified bacterial pneumonia
CPT/HCPCS: 36415; 80048; 85025; 85652

== ENCOUNTER → 2024-05-28 | Outpatient (REF) | payer MEDICAID, SELFPAY ==
[2024-05-28 08:50] LABS: Absolute Lymphocyte Count 2.51 X10^3/uL (0.83-4.51); Absolute Neutrophil Count 5.2 X10^3/uL (2.0-7.7); Basophil# 0.06 X10^3/uL; Basophil% 0.7 % (0-1); Eosinophil# 0.47 X10^3/uL; Eosinophils% 5.1 % (0-5); Hematocrit 32.8 % (40-54); Hemoglobin 9.6 g/dL (13.0-16.5); Lymphocyte # 2.51 X10^3/ul (0.83-4.51); Lymphocyte % 27.5 % (19-41); Mean Corp Hgb Conc 29.3 g/dL (32-36); Mean Corpuscular Hgb 23.1 pg (27.0-32.0); Mean Platelet Vol. 9.4 fl (6.2-12.0); Monocyte# 0.85 X10^3/uL; Monocyte% 9.3 % (0-10); NRBC Flagged by Analyzer 0 % (0-5); Neutrophil # 5.19 X10^3/uL (2.7-7.7); Neutrophil % 56.9 % (47-70); Platelet Count 374 K/mm3 (150-450); RBC Distribution Width CV 19.6 % (11.6-14.6); RBC Distribution Width SD 56.2 fl (35.1-43.9); Red Blood Count 4.15 M/mm3 (4.6-6.2); White Blood Count 9.1 K/mm3 (4.4-11.0)
[2024-05-28 09:03] LABS: Anion Gap 4 (5-15); BUN 13 mg/dL (7-18); BUN/Creat Ratio 22.7 RATIO (10-20); Calcium,Total 9.1 mg/dL (8.5-10.1); Chloride 102 mmol/L (98-107); Creatinine, Serum 0.57 mg/dL (0.70-1.30); EST Glomerular Filtration Rate 156 mL/min (>60); Est Glom Filt Rate - Afr Amer 188 mL/min (>60); Glucose 149 mg/dL (74-106); Potassium 3.8 mmol/L (3.5-5.1); Sodium Level 137 mmol/L (136-145)
== END | disposition home or self-care (01) ==
LOC: OLS.WHLEAS 06:20
PROVIDERS: PCP Internal Medicine; Visit Provider Internal Medicine
DX: E11.9 Type 2 diabetes mellitus without complications (principal); J18.9 Pneumonia, unspecified organism
CPT/HCPCS: 36415; 80048; 85025

== ENCOUNTER → 2024-06-04 | Outpatient (REF) | payer MEDICAID, SELFPAY ==
[2024-06-04 10:02] LABS: Absolute Lymphocyte Count 2.85 X10^3/uL (0.83-4.51); Absolute Neutrophil Count 5.8 X10^3/uL (2.0-7.7); Basophil# 0.08 X10^3/uL; Basophil% 0.8 % (0-1); Hematocrit 34.8 % (40-54); Lymphocyte # 2.85 X10^3/ul (0.83-4.51); Lymphocyte % 28.5 % (19-41); Mean Corp Hgb Conc 28.7 g/dL (32-36); Mean Corpuscular Hgb 23.5 pg (27.0-32.0); Mean Corpuscular Volume 81.9 fL (80-94); Mean Platelet Vol. 9.4 fl (6.2-12.0); Monocyte# 0.66 X10^3/uL; Monocyte% 6.6 % (0-10); NRBC Flagged by Analyzer 0 % (0-5); Neutrophil % 58.1 % (47-70); Platelet Count 397 K/mm3 (150-450); RBC Distribution Width CV 19.8 % (11.6-14.6); RBC Distribution Width SD 58.4 fl (35.1-43.9); Red Blood Count 4.25 M/mm3 (4.6-6.2)
[2024-06-04 10:47] LABS: Anion Gap 7 (5-15); BUN 19 mg/dL (7-18); BUN/Creat Ratio 22.8 RATIO (10-20); Calcium,Total 9.2 mg/dL (8.5-10.1); Chloride 99 mmol/L (98-107); Creatinine, Serum 0.84 mg/dL (0.70-1.30); EST Glomerular Filtration Rate 101 mL/min (>60); Est Glom Filt Rate - Afr Amer 122 mL/min (>60); Glucose 228 mg/dL (74-106); Potassium 4.1 mmol/L (3.5-5.1); Sodium Level 137 mmol/L (136-145)
== END | disposition home or self-care (01) ==
LOC: OLS.WHLEAS 05:00
PROVIDERS: PCP Internal Medicine; Visit Provider Internal Medicine
DX: E11.9 Type 2 diabetes mellitus without complications (principal)
CPT/HCPCS: 36415; 80048; 85025

== ENCOUNTER → 2024-06-18 05:00 | Outpatient (REF) | payer MEDICAID, SELFPAY ==
[2024-06-18 09:13] LABS: Anion Gap 10 (5-15); BUN 18 mg/dL (7-18); BUN/Creat Ratio 22.6 RATIO (10-20); Chloride 100 mmol/L (98-107); EST Glomerular Filtration Rate 107 mL/min (>60); Est Glom Filt Rate - Afr Amer 129 mL/min (>60); Glucose 180 mg/dL (74-106); Potassium 4.7 mmol/L (3.5-5.1); Sodium Level 132 mmol/L (136-145)
== END ==
LOC: OLS.WHLEAS 05:00
PROVIDERS: PCP Internal Medicine; Visit Provider Internal Medicine
DX: E11.9 Type 2 diabetes mellitus without complications (principal); G82.20 Paraplegia, unspecified
CPT/HCPCS: 36415; 80048

== ENCOUNTER → 2024-06-19 05:00 | Outpatient (REF) | payer MEDICAID, SELFPAY ==
[2024-06-19 08:40] LABS: Absolute Lymphocyte Count 2.45 X10^3/uL (0.83-4.51); Absolute Neutrophil Count 4.4 X10^3/uL (2.0-7.7); Basophil# 0.04 X10^3/uL; Basophil% 0.5 % (0-1); Eosinophil# 0.29 X10^3/uL; Eosinophils% 3.7 % (0-5); Hematocrit 35.5 % (40-54); Lymphocyte # 2.45 X10^3/ul (0.83-4.51); Lymphocyte % 30.9 % (19-41); Mean Corp Hgb Conc 28.2 g/dL (32-36); Mean Corpuscular Hgb 23.5 pg (27.0-32.0); Mean Corpuscular Volume 83.3 fL (80-94); Mean Platelet Vol. 9.6 fl (6.2-12.0); Monocyte# 0.72 X10^3/uL; Monocyte% 9.1 % (0-10); NRBC Flagged by Analyzer 0 % (0-5); Neutrophil # 4.36 X10^3/uL (2.7-7.7); Platelet Count 307 K/mm3 (150-450); RBC Distribution Width SD 61.4 fl (35.1-43.9); Red Blood Count 4.26 M/mm3 (4.6-6.2); White Blood Count 7.9 K/mm3 (4.4-11.0)
== END ==
LOC: OLS.WHLEAS 05:00
PROVIDERS: PCP Internal Medicine; Visit Provider Internal Medicine
DX: J15.9 Unspecified bacterial pneumonia (principal); G82.20 Paraplegia, unspecified; J91.8 Pleural effusion in other conditions classified elsewhere; L89.310 Pressure ulcer of right buttock, unstageable; E11.9 Type 2 diabetes mellitus without complications
CPT/HCPCS: 85025

== ENCOUNTER → 2024-06-25 05:00 | Outpatient (REF) | payer MEDICAID, SELFPAY ==
[2024-06-25 08:54] LABS: Absolute Lymphocyte Count 2.26 X10^3/uL (0.83-4.51); Basophil# 0.05 X10^3/uL; Basophil% 0.7 % (0-1); Eosinophil# 0.24 X10^3/uL; Eosinophils% 3.3 % (0-5); Hemoglobin 10.1 g/dL (13.0-16.5); Lymphocyte # 2.26 X10^3/ul (0.83-4.51); Lymphocyte % 31.2 % (19-41); Mean Corp Hgb Conc 28.9 g/dL (32-36); Mean Corpuscular Hgb 24.1 pg (27.0-32.0); Mean Corpuscular Volume 83.5 fL (80-94); Mean Platelet Vol. 9.6 fl (6.2-12.0); Monocyte# 0.69 X10^3/uL; Monocyte% 9.5 % (0-10); NRBC Flagged by Analyzer 0 % (0-5); Neutrophil # 3.96 X10^3/uL (2.7-7.7); Neutrophil % 54.7 % (47-70); Platelet Count 280 K/mm3 (150-450); RBC Distribution Width CV 18.9 % (11.6-14.6); RBC Distribution Width SD 57.5 fl (35.1-43.9); Red Blood Count 4.19 M/mm3 (4.6-6.2); White Blood Count 7.2 K/mm3 (4.4-11.0)
[2024-06-25 09:08] LABS: Anion Gap 7 (5-15); BUN 13 mg/dL (7-18); BUN/Creat Ratio 18.5 RATIO (10-20); Calcium,Total 8.8 mg/dL (8.5-10.1); Chloride 98 mmol/L (98-107); EST Glomerular Filtration Rate 123 mL/min (>60); Est Glom Filt Rate - Afr Amer 149 mL/min (>60); Glucose 276 mg/dL (74-106); Potassium 4.1 mmol/L (3.5-5.1); Sodium Level 135 mmol/L (136-145)
== END ==
LOC: OLS.WHLEAS 05:00
PROVIDERS: PCP Internal Medicine; Visit Provider Internal Medicine
DX: J15.9 Unspecified bacterial pneumonia (principal); G82.20 Paraplegia, unspecified; J91.8 Pleural effusion in other conditions classified elsewhere; D62 Acute posthemorrhagic anemia; L89.310 Pressure ulcer of right buttock, unstageable; E11.9 Type 2 diabetes mellitus without complications
CPT/HCPCS: 36415; 80048; 85025

== ENCOUNTER → 2024-07-02 05:00 | Outpatient (REF) | payer MEDICAID, SELFPAY ==
[2024-07-02 08:29] LABS: Absolute Lymphocyte Count 2.52 X10^3/uL (0.83-4.51); Absolute Neutrophil Count 4.9 X10^3/uL (2.0-7.7); Basophil# 0.04 X10^3/uL; Basophil% 0.5 % (0-1); Eosinophil# 0.26 X10^3/uL; Hematocrit 35.3 % (40-54); Hemoglobin 10.4 g/dL (13.0-16.5); Lymphocyte # 2.52 X10^3/ul (0.83-4.51); Mean Corp Hgb Conc 29.5 g/dL (32-36); Mean Corpuscular Hgb 25.1 pg (27.0-32.0); Mean Corpuscular Volume 85.1 fL (80-94); Mean Platelet Vol. 9.8 fl (6.2-12.0); Monocyte# 0.85 X10^3/uL; Monocyte% 9.8 % (0-10); NRBC Flagged by Analyzer 0 % (0-5); Neutrophil # 4.94 X10^3/uL (2.7-7.7); Neutrophil % 56.9 % (47-70); Platelet Count 325 K/mm3 (150-450); RBC Distribution Width CV 18.4 % (11.6-14.6); RBC Distribution Width SD 56.7 fl (35.1-43.9); Red Blood Count 4.15 M/mm3 (4.6-6.2); White Blood Count 8.7 K/mm3 (4.4-11.0)
[2024-07-02 08:49] LABS: Anion Gap 5 (5-15); BUN 16 mg/dL (7-18); BUN/Creat Ratio 22.2 RATIO (10-20); Calcium,Total 9.2 mg/dL (8.5-10.1); Chloride 96 mmol/L (98-107); Creatinine, Serum 0.72 mg/dL (0.70-1.30); EST Glomerular Filtration Rate 120 mL/min (>60); Est Glom Filt Rate - Afr Amer 145 mL/min (>60); Glucose 254 mg/dL (74-106); Sodium Level 134 mmol/L (136-145)
== END ==
LOC: OLS.WHLEAS 05:00
PROVIDERS: PCP Internal Medicine; Visit Provider Internal Medicine
DX: J15.9 Unspecified bacterial pneumonia (principal); G82.20 Paraplegia, unspecified; J91.8 Pleural effusion in other conditions classified elsewhere; D62 Acute posthemorrhagic anemia; E11.9 Type 2 diabetes mellitus without complications
CPT/HCPCS: 36415; 80048; 85025

== ENCOUNTER → 2024-07-09 | Outpatient (REF) | payer MEDICAID, SELFPAY ==
[2024-07-09 06:28] LABS: Absolute Lymphocyte Count 2.18 X10^3/uL (0.83-4.51); Absolute Neutrophil Count 5.1 X10^3/uL (2.0-7.7); Basophil# 0.06 X10^3/uL; Basophil% 0.7 % (0-1); Eosinophil# 0.25 X10^3/uL; Eosinophils% 2.9 % (0-5); Hemoglobin 10.2 g/dL (13.0-16.5); Lymphocyte # 2.18 X10^3/ul (0.83-4.51); Lymphocyte % 25.4 % (19-41); Mean Corp Hgb Conc 29.1 g/dL (32-36); Mean Corpuscular Hgb 24.8 pg (27.0-32.0); Mean Corpuscular Volume 85.2 fL (80-94); Mean Platelet Vol. 9.6 fl (6.2-12.0); Monocyte# 0.88 X10^3/uL; Monocyte% 10.3 % (0-10); NRBC Flagged by Analyzer 0 % (0-5); Neutrophil # 5.11 X10^3/uL (2.7-7.7); Neutrophil % 59.6 % (47-70); Platelet Count 293 K/mm3 (150-450); RBC Distribution Width SD 55.9 fl (35.1-43.9); Red Blood Count 4.11 M/mm3 (4.6-6.2); White Blood Count 8.6 K/mm3 (4.4-11.0)
[2024-07-09 06:52] LABS: Anion Gap 6 (5-15); BUN 17 mg/dL (7-18); BUN/Creat Ratio 25.3 RATIO (10-20); Calcium,Total 9.1 mg/dL (8.5-10.1); Chloride 98 mmol/L (98-107); Creatinine, Serum 0.67 mg/dL (0.70-1.30); EST Glomerular Filtration Rate 130 mL/min (>60); Est Glom Filt Rate - Afr Amer 157 mL/min (>60); Glucose 311 mg/dL (74-106); Potassium 3.9 mmol/L (3.5-5.1); Sodium Level 136 mmol/L (136-145)
== END | disposition home or self-care (01) ==
LOC: OLS.WHLEAS 05:00
PROVIDERS: PCP Internal Medicine; Visit Provider Internal Medicine
DX: E11.9 Type 2 diabetes mellitus without complications (principal)
CPT/HCPCS: 36415; 80048; 85025

== ENCOUNTER → 2024-07-11 | Outpatient (REF) | payer MEDICAID, SELFPAY | END | disposition home or self-care (01) | LOC: OLS.WHLEAS 02:30 | PROVIDERS: PCP Internal Medicine; Visit Provider Internal Medicine | DX: J18.9 Pneumonia, unspecified organism (principal); G82.20 Paraplegia, unspecified; L89.154 Pressure ulcer of sacral region, stage 4; E11.42 Type 2 diabetes mellitus with diabetic polyneuropathy; G47.33 Obstructive sleep apnea (adult) (pediatric); I50.32 Chronic diastolic (congestive) heart failure | CPT/HCPCS: 87449 ==

== ENCOUNTER → 2024-07-16 | Outpatient (REF) | payer MEDICAID, SELFPAY ==
[2024-07-16 07:59] LABS: Absolute Lymphocyte Count 2.75 X10^3/uL (0.83-4.51); Absolute Neutrophil Count 5.9 X10^3/uL (2.0-7.7); Basophil# 0.06 X10^3/uL; Basophil% 0.6 % (0-1); Eosinophil# 0.38 X10^3/uL; Eosinophils% 3.8 % (0-5); Hematocrit 31.6 % (40-54); Hemoglobin 9.2 g/dL (13.0-16.5); Lymphocyte # 2.75 X10^3/ul (0.83-4.51); Lymphocyte % 27.2 % (19-41); Mean Corp Hgb Conc 29.1 g/dL (32-36); Mean Corpuscular Hgb 24.6 pg (27.0-32.0); Mean Corpuscular Volume 84.5 fL (80-94); Mean Platelet Vol. 9.4 fl (6.2-12.0); Monocyte# 0.96 X10^3/uL; Monocyte% 9.5 % (0-10); NRBC Flagged by Analyzer 0 % (0-5); Neutrophil # 5.87 X10^3/uL (2.7-7.7); Neutrophil % 57.9 % (47-70); Platelet Count 333 K/mm3 (150-450); RBC Distribution Width CV 17.5 % (11.6-14.6); Red Blood Count 3.74 M/mm3 (4.6-6.2); White Blood Count 10.1 K/mm3 (4.4-11.0)
[2024-07-16 08:32] LABS: Anion Gap 13 (5-15); BUN 15 mg/dL (4-19); BUN/Creat Ratio 30.1 RATIO (10-20); Calcium 8.6 mg/dL (7.6-11.0); Carbon Dioxide 26.3 mmol/L (22.0-29.0); Chloride 98 mmol/L (96-108); EST Glomerular Filtration Rate 119 (>60); Glucose 206 mg/dL (70-99); Potassium 4.3 mmol/L (3.3-5.1); Sodium Level 137 mmol/L (133-145)
== END | disposition home or self-care (01) ==
LOC: OLS.WHLEAS 05:00
PROVIDERS: PCP Internal Medicine; Visit Provider Internal Medicine
DX: E11.9 Type 2 diabetes mellitus without complications (principal); J15.9 Unspecified bacterial pneumonia; D62 Acute posthemorrhagic anemia
CPT/HCPCS: 36415; 80048; 85025

== ENCOUNTER → 2024-07-23 | Outpatient (REF) | payer MEDICAID, SELFPAY ==
[2024-07-23 06:20] LABS: Absolute Lymphocyte Count 2.63 X10^3/uL (0.83-4.51); Absolute Neutrophil Count 5.6 X10^3/uL (2.0-7.7); Basophil# 0.06 X10^3/uL; Basophil% 0.6 % (0-1); Eosinophil# 0.36 X10^3/uL; Eosinophils% 3.8 % (0-5); Hematocrit 32.2 % (40-54); Hemoglobin 9.5 g/dL (13.0-16.5); Lymphocyte # 2.63 X10^3/ul (0.83-4.51); Mean Corp Hgb Conc 29.5 g/dL (32-36); Mean Corpuscular Hgb 24.8 pg (27.0-32.0); Mean Corpuscular Volume 84.1 fL (80-94); Mean Platelet Vol. 9.5 fl (6.2-12.0); Monocyte# 0.63 X10^3/uL; Monocyte% 6.7 % (0-10); NRBC Flagged by Analyzer 0 % (0-5); Neutrophil # 5.64 X10^3/uL (2.7-7.7); Neutrophil % 60.3 % (47-70); Platelet Count 315 K/mm3 (150-450); RBC Distribution Width CV 17.3 % (11.6-14.6); RBC Distribution Width SD 52.6 fl (35.1-43.9); Red Blood Count 3.83 M/mm3 (4.6-6.2); White Blood Count 9.4 K/mm3 (4.4-11.0)
[2024-07-23 07:48] LABS: AST(SGOT) 15 U/L (<=37); Alanine Aminotransfer ALT/SGPT 10 U/L (<=46); Albumin, Serum 3.5 g/dL (3.5-5.0); Alkaline Phosphatase 67 U/L (40-129); Anion Gap 15 (5-15); BUN 13 mg/dL (4-19); BUN/Creat Ratio 20.2 RATIO (10-20); Bilirubin, Direct 0.09 mg/dL (0.00-0.30); Calcium,Total 8.8 mg/dL (7.6-11.0); Carbon Dioxide 24.9 mmol/L (21.0-32.0); Chloride 98 mmol/L (98-108); Creatinine, Serum 0.62 mg/dL (0.70-1.20); EST Glomerular Filtration Rate 111 (>60); Globulin 3.5 g/dL (2.2-4.2); Glucose 254 mg/dL (70-99); Potassium 4.3 mmol/L (3.3-5.1); Sodium Level 137 mmol/L (133-145); Total Bilirubin 0.17 mg/dL (0.00-1.30)
[2024-07-23 08:21] LABS: Hemoglobin A1c 7.9 % (<=5.6)
== END | disposition home or self-care (01) ==
LOC: OLS.WHL 05:00
PROVIDERS: PCP Internal Medicine; Visit Provider Internal Medicine
DX: I50.32 Chronic diastolic (congestive) heart failure (principal); G82.20 Paraplegia, unspecified; J15.9 Unspecified bacterial pneumonia; D62 Acute posthemorrhagic anemia; L89.310 Pressure ulcer of right buttock, unstageable; E11.9 Type 2 diabetes mellitus without complications
CPT/HCPCS: 36415; 80048; 80076; 83036; 85025

== ENCOUNTER → 2024-07-26 | Outpatient (REF) | payer MEDICAID, SELFPAY ==
[2024-07-26 07:32] LABS: Absolute Lymphocyte Count 2.65 X10^3/uL (0.83-4.51); Absolute Neutrophil Count 5.8 X10^3/uL (2.0-7.7); Basophil# 0.06 X10^3/uL; Basophil% 0.6 % (0-1); Eosinophil# 0.33 X10^3/uL; Eosinophils% 3.4 % (0-5); Hematocrit 34.2 % (40-54); Hemoglobin 9.9 g/dL (13.0-16.5); Lymphocyte # 2.65 X10^3/ul (0.83-4.51); Lymphocyte % 27.6 % (19-41); Mean Corp Hgb Conc 28.9 g/dL (32-36); Mean Corpuscular Hgb 24.7 pg (27.0-32.0); Mean Corpuscular Volume 85.3 fL (80-94); Mean Platelet Vol. 9.4 fl (6.2-12.0); Monocyte# 0.73 X10^3/uL; Monocyte% 7.6 % (0-10); NRBC Flagged by Analyzer 0 % (0-5); Neutrophil # 5.79 X10^3/uL (2.7-7.7); Neutrophil % 60.5 % (47-70); Platelet Count 314 K/mm3 (150-450); RBC Distribution Width CV 17.2 % (11.6-14.6); RBC Distribution Width SD 53.5 fl (35.1-43.9); Red Blood Count 4.01 M/mm3 (4.6-6.2); White Blood Count 9.6 K/mm3 (4.4-11.0)
== END | disposition home or self-care (01) ==
LOC: OLS.WHLEAS 05:00
PROVIDERS: PCP Internal Medicine; Visit Provider Internal Medicine
DX: D50.9 Iron deficiency anemia, unspecified (principal)
CPT/HCPCS: 36415; 85025

== ENCOUNTER → 2024-07-30 | Outpatient (REF) | payer MEDICAID, SELFPAY ==
[2024-07-30 08:03] LABS: Absolute Lymphocyte Count 3.01 X10^3/uL (0.83-4.51); Absolute Neutrophil Count 4.8 X10^3/uL (2.0-7.7); Basophil# 0.05 X10^3/uL; Basophil% 0.5 % (0-1); Eosinophil# 0.36 X10^3/uL; Hematocrit 32.3 % (40-54); Hemoglobin 9.6 g/dL (13.0-16.5); Lymphocyte # 3.01 X10^3/ul (0.83-4.51); Lymphocyte % 33.1 % (19-41); Mean Corp Hgb Conc 29.7 g/dL (32-36); Mean Corpuscular Volume 84.1 fL (80-94); Mean Platelet Vol. 9.7 fl (6.2-12.0); Monocyte# 0.83 X10^3/uL; Monocyte% 9.1 % (0-10); NRBC Flagged by Analyzer 0 % (0-5); Neutrophil # 4.82 X10^3/uL (2.7-7.7); Platelet Count 302 K/mm3 (150-450); RBC Distribution Width SD 52.1 fl (35.1-43.9); Red Blood Count 3.84 M/mm3 (4.6-6.2); White Blood Count 9.1 K/mm3 (4.4-11.0)
[2024-07-30 13:34] LABS: Anion Gap 11 (5-15); BUN 16 mg/dL (4-19); BUN/Creat Ratio 21.6 RATIO (10-20); Calcium,Total 8.9 mg/dL (7.6-11.0); Chloride 96 mmol/L (98-108); Creatinine, Serum 0.74 mg/dL (0.70-1.20); EST Glomerular Filtration Rate 106 (>60); Glucose 314 mg/dL (70-99); Potassium 4.3 mmol/L (3.3-5.1); Sodium Level 134 mmol/L (133-145)
== END | disposition home or self-care (01) ==
LOC: OLS.WHLEAS 05:00
PROVIDERS: PCP Internal Medicine; Visit Provider Internal Medicine
DX: E11.9 Type 2 diabetes mellitus without complications (principal)
CPT/HCPCS: 36415; 80048; 85025

== ENCOUNTER → 2024-08-06 | Outpatient (REF) | payer MEDICAID, SELFPAY ==
[2024-08-06 09:05] LABS: Absolute Lymphocyte Count 2.89 X10^3/uL (0.83-4.51); Basophil# 0.06 X10^3/uL; Basophil% 0.7 % (0-1); Eosinophil# 0.38 X10^3/uL; Eosinophils% 4.7 % (0-5); Hematocrit 34.5 % (40-54); Hemoglobin 9.9 g/dL (13.0-16.5); Lymphocyte # 2.89 X10^3/ul (0.83-4.51); Lymphocyte % 35.6 % (19-41); Mean Corp Hgb Conc 28.7 g/dL (32-36); Mean Corpuscular Hgb 24.6 pg (27.0-32.0); Mean Corpuscular Volume 85.6 fL (80-94); Mean Platelet Vol. 9.6 fl (6.2-12.0); Monocyte# 0.78 X10^3/uL; Monocyte% 9.6 % (0-10); NRBC Flagged by Analyzer 0 % (0-5); Neutrophil # 3.96 X10^3/uL (2.7-7.7); Neutrophil % 48.8 % (47-70); Platelet Count 315 K/mm3 (150-450); RBC Distribution Width CV 16.7 % (11.6-14.6); RBC Distribution Width SD 52.3 fl (35.1-43.9); Red Blood Count 4.03 M/mm3 (4.6-6.2); White Blood Count 8.1 K/mm3 (4.4-11.0)
[2024-08-06 14:52] LABS: Anion Gap 12 (5-15); BUN 15 mg/dL (4-19); BUN/Creat Ratio 24.3 RATIO (10-20); Calcium,Total 8.9 mg/dL (7.6-11.0); Carbon Dioxide 26.7 mmol/L (21.0-32.0); Chloride 97 mmol/L (98-108); EST Glomerular Filtration Rate 112 (>60); Glucose 299 mg/dL (70-99); Potassium 4.3 mmol/L (3.3-5.1); Sodium Level 136 mmol/L (133-145)
== END | disposition home or self-care (01) ==
LOC: OLS.WHLEAS 05:00
PROVIDERS: PCP Internal Medicine; Visit Provider Internal Medicine
DX: E11.9 Type 2 diabetes mellitus without complications (principal)
CPT/HCPCS: 36415; 80048; 85025

== ENCOUNTER → 2024-08-13 | Outpatient (REF) | payer MEDICAID, SELFPAY ==
[2024-08-13 09:22] LABS: Absolute Neutrophil Count 6.9 X10^3/uL (2.0-7.7); Basophil# 0.08 X10^3/uL; Basophil% 0.7 % (0-1); Eosinophil# 0.35 X10^3/uL; Eosinophils% 3.2 % (0-5); Hematocrit 35.1 % (40-54); Hemoglobin 10.3 g/dL (13.0-16.5); Mean Corp Hgb Conc 29.3 g/dL (32-36); Mean Corpuscular Hgb 24.6 pg (27.0-32.0); Mean Platelet Vol. 9.7 fl (6.2-12.0); Monocyte# 1.08 X10^3/uL; Monocyte% 9.9 % (0-10); NRBC Flagged by Analyzer 0 % (0-5); Neutrophil # 6.86 X10^3/uL (2.7-7.7); Neutrophil % 63.1 % (47-70); Platelet Count 340 K/mm3 (150-450); RBC Distribution Width CV 16.1 % (11.6-14.6); RBC Distribution Width SD 49.3 fl (35.1-43.9); Red Blood Count 4.18 M/mm3 (4.6-6.2); White Blood Count 10.9 K/mm3 (4.4-11.0)
[2024-08-13 09:55] LABS: Anion Gap 12 (5-15); BUN 16 mg/dL (4-19); BUN/Creat Ratio 22.2 RATIO (10-20); Carbon Dioxide 28.2 mmol/L (21.0-32.0); Chloride 95 mmol/L (98-108); Creatinine, Serum 0.72 mg/dL (0.70-1.20); EST Glomerular Filtration Rate 107 (>60); Glucose 252 mg/dL (70-99); Potassium 4.2 mmol/L (3.3-5.1); Sodium Level 135 mmol/L (133-145)
== END | disposition home or self-care (01) ==
LOC: OLS.WHLEAS 05:00
PROVIDERS: PCP Internal Medicine; Visit Provider Internal Medicine
DX: E11.9 Type 2 diabetes mellitus without complications (principal); J15.9 Unspecified bacterial pneumonia; D62 Acute posthemorrhagic anemia
CPT/HCPCS: 36415; 80048; 85025

== ENCOUNTER → 2024-08-20 | Outpatient (REF) | payer MEDICAID, SELFPAY ==
[2024-08-20 09:37] LABS: Absolute Lymphocyte Count 3.04 X10^3/uL (0.83-4.51); Absolute Neutrophil Count 5.3 X10^3/uL (2.0-7.7); Basophil# 0.08 X10^3/uL; Basophil% 0.8 % (0-1); Eosinophil# 0.36 X10^3/uL; Eosinophils% 3.8 % (0-5); Hematocrit 35.1 % (40-54); Hemoglobin 10.1 g/dL (13.0-16.5); Lymphocyte # 3.04 X10^3/ul (0.83-4.51); Lymphocyte % 31.8 % (19-41); Mean Corp Hgb Conc 28.8 g/dL (32-36); Mean Corpuscular Volume 83.4 fL (80-94); Mean Platelet Vol. 9.6 fl (6.2-12.0); Monocyte# 0.73 X10^3/uL; Monocyte% 7.6 % (0-10); NRBC Flagged by Analyzer 0 % (0-5); Neutrophil # 5.28 X10^3/uL (2.7-7.7); Neutrophil % 55.3 % (47-70); Platelet Count 362 K/mm3 (150-450); RBC Distribution Width CV 16.1 % (11.6-14.6); RBC Distribution Width SD 48.7 fl (35.1-43.9); Red Blood Count 4.21 M/mm3 (4.6-6.2); White Blood Count 9.6 K/mm3 (4.4-11.0)
[2024-08-20 09:50] LABS: Anion Gap 11 (5-15); BUN 17 mg/dL (4-19); BUN/Creat Ratio 26.1 RATIO (10-20); Calcium,Total 9.1 mg/dL (7.6-11.0); Carbon Dioxide 27.5 mmol/L (21.0-32.0); Chloride 96 mmol/L (98-108); Creatinine, Serum 0.64 mg/dL (0.70-1.20); EST Glomerular Filtration Rate 110 (>60); Glucose 323 mg/dL (70-99); Potassium 4.2 mmol/L (3.3-5.1); Sodium Level 135 mmol/L (133-145)
== END | disposition home or self-care (01) ==
LOC: OLS.WHLEAS 04:00
PROVIDERS: PCP Internal Medicine; Referring Provider Internal Medicine; Visit Provider Internal Medicine
DX: E11.9 Type 2 diabetes mellitus without complications (principal); J15.9 Unspecified bacterial pneumonia; G82.20 Paraplegia, unspecified; J91.8 Pleural effusion in other conditions classified elsewhere; D62 Acute posthemorrhagic anemia; L89.310 Pressure ulcer of right buttock, unstageable
CPT/HCPCS: 36415; 80048; 85025

== ENCOUNTER → 2024-08-27 | Outpatient (REF) | payer MEDICAID, SELFPAY ==
[2024-08-27 08:48] LABS: Absolute Lymphocyte Count 2.87 X10^3/uL (0.83-4.51); Absolute Neutrophil Count 6.4 X10^3/uL (2.0-7.7); Basophil# 0.06 X10^3/uL; Basophil% 0.6 % (0-1); Eosinophil# 0.38 X10^3/uL; Eosinophils% 3.5 % (0-5); Hematocrit 35.2 % (40-54); Hemoglobin 10.2 g/dL (13.0-16.5); Lymphocyte # 2.87 X10^3/ul (0.83-4.51); Lymphocyte % 26.7 % (19-41); Mean Corpuscular Hgb 23.7 pg (27.0-32.0); Mean Corpuscular Volume 81.9 fL (80-94); Mean Platelet Vol. 9.6 fl (6.2-12.0); Monocyte# 0.97 X10^3/uL; NRBC Flagged by Analyzer 0 % (0-5); Neutrophil # 6.42 X10^3/uL (2.7-7.7); Neutrophil % 59.7 % (47-70); Platelet Count 336 K/mm3 (150-450); RBC Distribution Width CV 15.9 % (11.6-14.6); RBC Distribution Width SD 47.7 fl (35.1-43.9); White Blood Count 10.8 K/mm3 (4.4-11.0)
[2024-08-27 09:10] LABS: Anion Gap 12 (5-15); BUN 12 mg/dL (4-19); BUN/Creat Ratio 18.9 RATIO (10-20); Calcium,Total 8.5 mg/dL (7.6-11.0); Chloride 95 mmol/L (98-108); Creatinine, Serum 0.64 mg/dL (0.70-1.20); EST Glomerular Filtration Rate 111 (>60); Glucose 351 mg/dL (70-99); Potassium 3.9 mmol/L (3.3-5.1); Sodium Level 133 mmol/L (133-145)
== END | disposition home or self-care (01) ==
LOC: OLS.WHLEAS 05:00
PROVIDERS: PCP Internal Medicine; Visit Provider Internal Medicine
DX: E11.9 Type 2 diabetes mellitus without complications (principal); J15.9 Unspecified bacterial pneumonia
CPT/HCPCS: 36415; 80048; 85025

== ENCOUNTER → 2024-09-03 | Outpatient (REF) | payer MEDICAID, SELFPAY ==
[2024-09-03 08:02] LABS: Absolute Lymphocyte Count 2.89 X10^3/uL (0.83-4.51); Absolute Neutrophil Count 5.4 X10^3/uL (2.0-7.7); Basophil# 0.06 X10^3/uL; Basophil% 0.6 % (0-1); Eosinophil# 0.33 X10^3/uL; Eosinophils% 3.4 % (0-5); Hematocrit 34.5 % (40-54); Hemoglobin 10.1 g/dL (13.0-16.5); Lymphocyte # 2.89 X10^3/ul (0.83-4.51); Lymphocyte % 29.8 % (19-41); Mean Corp Hgb Conc 29.3 g/dL (32-36); Mean Corpuscular Volume 81.9 fL (80-94); Mean Platelet Vol. 9.9 fl (6.2-12.0); Monocyte# 0.89 X10^3/uL; Monocyte% 9.2 % (0-10); NRBC Flagged by Analyzer 0 % (0-5); Neutrophil # 5.43 X10^3/uL (2.7-7.7); Neutrophil % 55.9 % (47-70); Platelet Count 308 K/mm3 (150-450); RBC Distribution Width CV 16.1 % (11.6-14.6); RBC Distribution Width SD 48.1 fl (35.1-43.9); Red Blood Count 4.21 M/mm3 (4.6-6.2); White Blood Count 9.7 K/mm3 (4.4-11.0)
[2024-09-03 09:19] LABS: Anion Gap 12 (5-15); BUN 16 mg/dL (4-19); BUN/Creat Ratio 18.8 RATIO (10-20); Calcium,Total 8.7 mg/dL (7.6-11.0); Carbon Dioxide 28.8 mmol/L (21.0-32.0); Chloride 94 mmol/L (98-108); Creatinine, Serum 0.87 mg/dL (0.70-1.20); EST Glomerular Filtration Rate 101 (>60); Glucose 463 mg/dL (70-99); Potassium 4.1 mmol/L (3.3-5.1); Sodium Level 134 mmol/L (133-145)
== END | disposition home or self-care (01) ==
LOC: OLS.WHLEAS 05:00
PROVIDERS: PCP Internal Medicine; Visit Provider Internal Medicine
DX: E11.9 Type 2 diabetes mellitus without complications (principal); J15.9 Unspecified bacterial pneumonia; J91.8 Pleural effusion in other conditions classified elsewhere
CPT/HCPCS: 36415; 80048; 85025

== ENCOUNTER 2024-09-07 09:30 | Outpatient (RCR) | payer MEDICAID, SELFPAY ==
[2024-08-17 09:15] VITALS: BP 130/74; PULSE 101; RESP 18; TEMP 36.6; O2SAT 96; BMI 43.3
--- NOTE | 2024-08-17 13:28 | PCM.WC.HP ---
History of Present Illness Date of Service: 08/17/24 Chief Complaint: sacral decubitus ulcer History of Wound: Jani is a pleasant 59 yo gentleman that has undergone an unfortunate series of events over the last several years which has left him paraplegic and with a sacral decubitus ulcer and residing in [facility]. He has been referred to the wound center for evaluation and treatment of his sacral ulcer. He has had a long history of degenerative disc disease of his spine and underwent spine surgery in August 2016 initially and then again in February 2017 due to osteomyelitis and infection of hardware. He underwent further surgery for fusion in December of 2020. He fell in November of 2022 getting up from his chair and then experienced worsening pain, weakness in his legs and ultimately became paraplegic from the waist down. He underwent surgery in [place] in January 2023 at [facility] and then had several complications including pneumonia, pulmonary embolisms and a sacral ulcer that developed into a large defect after multiple surgical debridements and osteomyelitis of his sacrum while at [facility] through the first part 2023 and then attempted to come home to be cared for by his elderly mother which was not successful and he was hospitalized and discharged to [facility] where he has been residing and continues to reside. He has undergone many different treatments for his sacral ulcer including wound vac, silver dressings and Dakins and does have an air mattress but it is not an alternating pressure air mattress. The staff does try to offload his ulcer with wedges and pillows but it is difficult due to his chronic back pain. He is currently having the wound dressed with Dakins wet to dry and super absorber dressings twice daily. he reports being on chronic antibiotic treatment and IV treatment over the past year and states that he had MRI that showed resolution of osteomyelitis. (Records unavailable). He currently does not have any symptoms of systemic infection or localized infection. Denies fever, chills, nausea. [facility] Medical History (Updated 08/17/24 @ 14:[address] Wilma Thayer DO) Decubitus ulcer of sacral region, stage 4 Lymphedema BATOOL treated with BiPAP Abscess of back Constipation Pressure ulcer of sacral region Chronic indwelling Campbell catheter Blood loss anemia Clot retention of urine Pressure injury, unstageable, with eschar Bilateral pulmonary embolism Rhabdomyolysis Community acquired pneumonia Hypoglycemia Acute osteomyelitis of spine Former tobacco use Paraplegia Cellulitis of leg without foot, right Anemia BMI greater than 40 Type 2 diabetes mellitus HTN (hypertension) H/o back surgery Home Medications ?Medication ?Instructions ?Recorded ?Last Taken ?Type fluticasone propionate 50 1 spray intranasal DAILY shortness 03/03/20 Unknown History mcg/actuation nasal of breath spray,suspension (Flonase Allergy Relief) apixaban 5 mg tablet (Eliquis) 5 mg PO BID 07/29/23 08/31/23 History methocarbamol 500 mg tablet 1,000 mg PO TID PRN cramps 07/29/23 08/31/23 History polyethylene glycol 3350 17 17 g PO DAILY PRN constipation 07/29/23 07/29/23 History gram/dose oral powder (ClearLax) pantoprazole 40 mg tablet,delayed 40 mg PO DAILY 08/31/23 08/31/23 History release aluminum-mag hydroxide-simethicone 30 ml PO Q6H PRN PRN Gastric 09/13/23 Unknown Rx 400 mg-400 mg-40 mg/5 mL oral susp Burning #0 mL (Mag-Al Plus Extra Strength) amlodipine 10 mg tablet 10 mg PO DAILY #0 tabs 09/13/23 Unknown Rx carvedilol 12.5 mg tablet 12.5 mg PO BIDCM #0 tabs 09/13/23 Unknown Rx diphenhydramine HCl 25 mg capsule 25 mg PO TID PRN PRN Itching #0 09/13/23 Unknown Rx (Banophen) caps peg 148-[id number] 1 1 drp EACH EYE BID #0 mL 09/13/23 Unknown Rx %-0.2 %-0.2 % eye drops (Artificial Tears ([id number])) polysaccharide iron complex 150 mg 150 mg PO DAILY 10/15/23 Unknown History iron capsule (Ferrex) sennosides 8.6 mg-docusate sodium 2 tab PO BID Constipation 10/15/23 Unknown History 50 mg tablet (Stool Softener-Stimulant Laxative) insulin lispro 100 unit/mL See Protocol subcut ACHS 10/23/23 Unknown History subcutaneous pen (Humalog KwikPen (U-100) Insulin) loratadine 10 mg tablet 10 mg PO DAILY 10/23/23 Unknown History (Allerclear) albuterol sulfate 2.5 mg/3 mL 2.5 mg inhalation BID 10/25/23 Unknown History (0.083 %) solution for nebulization acetaminophen 500 mg tablet 1,000 mg PO TID PRN pain 02/09/24 Unknown History furosemide 20 mg tablet 20 mg PO DAILY 02/09/24 Unknown History arginine 7 gram-glutamine 7 1 ea PO BID 03/22/24 Unknown History gram-calcium HMB 1.5 gram oral powder pack (Wiliam) amino acids-protein hydrolysate 15 30 ml PO BID 03/26/24 Unknown History gram-100 kcal/30 mL oral liquid (Pro-Stat Sugar Free) ascorbic acid (vitamin C) 500 mg 500 mg PO QDAY 03/26/24 Unknown History tablet chlorhexidine gluconate 4 % 1 applic topical .twice a week 03/26/24 Unknown History topical liquid (Hibiclens) dextrose 40 % oral gel (Glucose 10 g PO Q15M 03/26/24 Unknown History Gel) naloxone 0.4 mg/mL injection 0.4 mg IM Q5M PRN opioid reversal 03/26/24 Unknown History syringe ondansetron 4 mg disintegrating 4 mg PO Q4H PRN nausea 03/26/24 Unknown History tablet sodium chloride 0.65 % nasal mist 2 spray intranasal Q2H PRN dry 03/26/24 Unknown History nasal passages dulaglutide 3 mg/0.5 mL 3 mg subcut QWEEK 07/18/24 Unknown History subcutaneous pen injector (Trulicity) duloxetine 30 mg capsule,delayed 60 mg PO QDAY 07/18/24 Unknown History release insulin glargine 100 unit/mL 10 unit subcut DAILY diabetes 07/18/24 Unknown History subcutaneous solution (Lantus mellitus type 2 U-100 Insulin) insulin lispro 100 unit/mL 6 unit subcut TID 07/18/24 Unknown History subcutaneous solution metformin 500 mg tablet 1,000 mg PO QDAY 07/18/24 Unknown History oxycodone 10 mg tablet 10 mg PO .qid pain 1 month #120 07/30/24 Unknown Rx TABLETS fenofibrate 54 mg tablet 54 mg PO DAILY 08/17/24 Unknown History lorazepam 1 mg tablet 1 mg PO DAILY PRN anxiety 08/17/24 Unknown History nystatin 100,000 unit/gram topical topical 08/17/24 Unknown History powder Allergy/AdvReac Type Severity Reaction Status Date / Time No Known Allergies Allergy Verified 07/18/24 09:14 Family History Mother Hypertension Hypotension Diabetes Arthritis Father Hypertension Hypotension Heart disease Status post double vessel coronary artery bypass angina Arthritis Grandfather Prostate cancer Grandmother Uterine cancer Surgical History (Updated 08/17/24 @ 14:[address] Wilma Thayer DO) History of hip replacement Colostomy status Hx of spinal surgery H/O sinus surgery Social History (Updated 08/17/24 @ 14:[address] Wilma Thayer DO) housing: custodial current occupational status: employed and retired Smoking Status: Never smoker alcohol intake: never substance use type: does not use do you feel safe at home: Yes ROS Constitutional Constitutional: Denies chills, fatigue or fever(s) Eyes Eyes: Denies blurry vision, change in vision or loss of vision ENT HEENT: Denies dysphagia, hearing loss or sore throat Cardiovascular Cardiovascular: Denies chest pain, edema or palpitations Respiratory/Chest Respiratory/Chest: Denies dry cough, dyspnea, dyspnea on exertion, productive cough or wheezing Gastrointestinal Gastrointestinal: Denies diarrhea, nausea or vomiting Genitourinary Genitourinary: Denies dysuria or polyuria Musculoskeletal Musculoskeletal: Reports back pain, muscle weakness and numbness; Denies arthralgias or joint stiffness Integumentary Integumentary: Reports erythema and wounds Neurologic Neurologic: Reports numbness and sensory deficit; Denies dizziness, memory loss or weakness Psychiatric Psychiatric: Denies homicidal ideation or suicidal ideation Endocrine Endocrinology: Denies polydipsia, polyphagia or polyuria Hematologic/Lymphatic Hematologic/Lymphatic: Denies easy bleeding or easy bruising Allergic/Immunologic Allergic/Immunologic: Denies throat swelling, tongue swelling or urticaria Vital Signs Vital Signs Vital Signs: 08/17/24 09:15 Temperature 97.9 F Temperature Source Temporal Pulse Rate 101 H Respiratory Rate 18 Blood Pressure 130/74 H Blood Pressure Mean 92 Blood Pressure Source Monitor Blood Pressure Position Semi-Fowlers Blood Pressure Location Left Arm Pulse Ox 96 Oxygen Delivery Method Nasal Cannula Oxygen Flow Rate (L/min) 3 Weight Weight: 141.067 kg Body Mass Index (BMI) 43.3 Physical Exam Const alert, oriented x3, no apparent distress and well nourished; Negative for average body habitus or healthy appearing Constitutional Narrative: Morbidly obese, middle-aged, white male, sitting up in bed, appears comfortable and nontoxic HEENT head/scalp atraumatic and moist oral mucous membranes Head and Scalp: normocephalic Resp normal respiratory effort, no retractions, no use of accessory muscles and clear to auscultation bilaterally Resp Narrative: Distant due to body habitus Cardio regular rate, regular rhythm, S1 normal heart sound, S2 normal heart sound, no murmurs, no rub, no gallops and no clicks GI normal to inspection, nondistended, normoactive bowel sounds, soft to palpation and non-tender GI Narrative: colostomy present Extremity Extremity Narrative: Chronic bilateral lower extremity edema due to history of paraplegia and lack of movement, no cyanosis or clubbing General Extremity: edema bilateral lower extremity Details: moderate Skin Wounds: wounds noted Wound Narrative: as noted in clinical panel - large sacral ulcer and right ischial ulcer, no visible bone, shearing injury of left ischial area, area is irregular with fringe like skin in areas from repetitive shearing and pressure Neuro oriented x3, CN's II-XII intact bilaterally, No moves all extremities, No no focal motor deficits and No no sensory deficits noted Neuro Narrative: Bilateral lower extremity flaccidity due to history of L1 injury Speech: speech normal Psych affect normal Psych Narrative: Very pleasant, interacts appropriately Debridement Note Debridement Note Wound debrided: left ischium Laterality: Left Wound Grade/Stage: Stage 2 Anesthesia Used: 4% Lidocaine Solution Depth: Down to and including healthy tissue and in the subcutaneous layer Percentage of wound debrided: 100 Instrument Used: 7mm curette Tissue Removed: Yellow slough, devitalized tissue Severity: Limited To Skin Breakdown Amount of bleeding with debridement: None Patient tolerated procedure: Patient tolerated procedure well Post-Debridement Measurements and Additional Note: Post-Debridement Measurements/Treatment - Nurse 1 - General Ulcer Assessment Start: 08/17/24 09:15 Freq: Status: Active Protocol: ELENA Activity Type Activity Date Activity User E-sign Co-sign Detail Recorded Client Recorded Date Recorded By Document 08/17/24 09:15 RB [id number] 08/17/24 09:23 RB 08/17/24 09:15 BONITA - Today's Visit Information Type of service Follow-up Visit (Physician/YARN PREPARATION SUPERVISOR ) Arrival Mode Stretcher Transfer Assistance Manual Patient Identification Verified (Name & Yes ) Patient Requires Transmission-Based No Precautions Finger Stick Blood Sugar(mg/dl) (if 309 indicated): Blood Sugar Stated by Patient Height and Weight Height 5 ft 11 in Weight 141.067 kg Weight in Pounds 311.0 lbs Body Mass Index (BMI) 43.3 BMI Classification Obese Vital Signs Temperature (97.8 F-99.1 F) 97.9 F Temperature Source Temporal Pulse Rate (60-100) 101 H Pulse Location Monitor Respiratory Rate (12-18) 18 Respiratory rate source Observation Pulse Oximetry 96 Oxygen Delivery Method Nasal Cannula O2 L/MIN 3 Blood Pressure (90/60-120/80) 130/74 H Blood Pressure Mean 92 Source Monitor Position Semi-Fowlers Blood Pressure Location Left Arm History Since Last Visit- (Skip if this is Patient's initial visit) Have you changed medications since your No last visit? Any new allergies or adverse reactions No Had a fall/change in ADL's that may No increase risk of falls Signs or symptoms of abuse and/or No neglect since last visit Have you been in the hospital since your No last visit? Has dressing in place as prescribed Yes Has compression in place as prescribed N/A Has offloadiing in place as prescribed No Experienced any changes in pain level or Yes management Pain Scale: 0-10 Numeric Is Patient Pain Free? Yes Communication Assessment Preferred language Afghan [employer] Required No Able to Read Yes Able to Write Yes Communication Tools None Caregiver Communication Skills No Impairment Impairment Right Hearing Abillity Normal Left Hearing Abillity Normal Visual Assistive Devices None Teaching Assessment Preferences Verbal,Written, Demonstration Barriers to Learning None Readiness To Learn Good Willingness to Engage in Self Management Med Activies Readiness to Engage in Self Management Med Activities Anxiety Level Calm Cooperation Cooperative Perception Coherent Interest in Health Problem Asks Questions Education Importance Acknowledges Need Does Patient Smoke tobacco or other No substances Smoking Status Never smoker Is Patient Diabetic Yes Functional Assessment Recent Decline in Ability to Perform Ambulation, Bathing,Lower Body Dressing, Toileting, Transferring, Upper Body Dressing Culture/Islam/Hearing Stenographer Cultural/Islam Needs that may affect No Treatment Plan Would you allow our hospital coke drawer to No meet you for the purpose of spiritual/ emotional support? Hearing Stenographer to contact place of hinduism No WC - Nurse 1 - General Ulcer Measurement Start: 08/17/24 09:15 Freq: Status: Active Protocol: Activity Type Activity Date Activity User E-sign Co-sign Detail Recorded Client Recorded Date Recorded By Document 08/17/24 09:15 RB [id number] 08/17/24 09:23 RB 08/17/24 09:15 Wound Center Nurse 1 2. L ischium -Combined with other wound No -Current Size (cm) - Length 6 -Current Size (cm) - Width 5 -Current Size (cm) - Depth 0.1 -Total Square Cm 30 -Photo Taken Yes -Tunneling No -Undermining/Tunneling No -Circular Undermining No -Exudate Amt Large -Exudate Type Serosanguineous -Wound Margin Indistinct, Non -Visible -Granulation Amt Large (67-100%) -Granulation Quality [place] -Slough/Fibrin Yes -Necrosis Amt Small (1-33%) -Necrotic Tissue Type Adherent Slough -Structure Exposed N/A -Texture (Trish-wound Skin Appearance) Assessed, Excoriation -Moisture (Trish-wound Skin Appearance) Assessed -Color (Trish-wound Skin Appearance) Erythema -Temperature (Trish-wound Skin No Abnormality Appearance) (Pt Warm) -Tenderness on Palpation (Trish-wound No Skin Appearance) -Ulcer Cleansing Wound Cleanser -Foul Odor after Cleansing No -Anesthetic Used 4% Lidocaine Solution *1. coccyx -Combined with other wound No -Current Size (cm) - Length 15 -Current Size (cm) - Width 18 -Current Size (cm) - Depth 2.7 -Total Square Cm 270 -Photo Taken Yes -Tunneling No -Undermining/Tunneling No -Circular Undermining No -Exudate Amt Large -Exudate Type Serosanguineous -Wound Margin Fibrotic Scar, Thickened Scar -Granulation Amt Large (67-100%) -Granulation Quality [place] -Slough/Fibrin Yes -Necrosis Amt Large (67-100%) -Necrotic Tissue Type Adherent Slough -Structure Exposed Bone -Texture (Trish-wound Skin Appearance) Excoriation, Scarring -Moisture (Trish-wound Skin Appearance) Assessed, Maceration, Weeping -Color (Trish-wound Skin Appearance) Erythema -Temperature (Trish-wound Skin No Abnormality Appearance) (Pt Warm) -Tenderness on Palpation (Trish-wound No Skin Appearance) -Ulcer Cleansing Wound Cleanser -Foul Odor after Cleansing No -Anesthetic Used 4% Lidocaine Solution WC - Nurse 2 - General Ulcer CM Notes Start: 08/17/24 09:15 Freq: Status: Active Protocol: Activity Type Activity Date Activity User E-sign Co-sign Detail Recorded Client Recorded Date Recorded By Document 08/17/24 09:26 DS [id number] 08/17/24 09:58 DS 08/17/24 09:26 Wound Center Nurse 2 3. R ischium -Time 09:27 -Correct Patient Yes -Correct Side, Site, Position Yes -Correct Procedure Yes -Procedure Performed Yes -Type of Procedure Debridement -Clinical Debridement Subcutaneous -Tissue Removed Subcutaneous -Post Debridement (cm) - Length 9.3 -Post Debridement (cm) - Width 4.5 -Post Debridement (cm) - Depth 0.1 -Total Square (Post) (cm) 41.85 -Area of Debridement (cm) - Length 9.3 -Area of Debridement (cm) - Width 4.5 -Total Square (Area) (cm) 41.85 -Tunneling No -Undermining/Tunneling No -Circular Undermining No -Wound/Ulcer Outcome Not Healed -Ulcer Cleansing Rinsed/ Irrigated with Saline -Foul Odor after Cleansing No -Bioengineered Tissue No -Bleeding Controlled with Pressure,Silver Nitrate, SURGIFOAM -Treatment Response Procedure Tolerated Well -Debridement - Subq, 1st 20sq cm No -Wound Comment(s) 2 silver nitrate sticks and 2 surgifoam 2. L ischium -Time 09:26 -Correct Patient Yes -Correct Side, Site, Position Yes -Correct Procedure Yes -Procedure Performed Yes -Type of Procedure Debridement -Clinical Debridement Subcutaneous -Tissue Removed Subcutaneous -Post Debridement (cm) - Length 2.0 -Post Debridement (cm) - Width 3.0 -Post Debridement (cm) - Depth 0.1 -Total Square (Post) (cm) 6.00 -Area of Debridement (cm) - Length 2.0 -Area of Debridement (cm) - Width 3.0 -Total Square (Area) (cm) 6.00 -Tunneling No -Undermining/Tunneling No -Circular Undermining No -Wound/Ulcer Outcome Not Healed -Ulcer Cleansing Rinsed/ Irrigated with Saline -Foul Odor after Cleansing No -Bioengineered Tissue No -Bleeding Controlled with Pressure -Treatment Response Procedure Tolerated Well -Debridement - Subq, 1st 20sq cm Yes -Debridement, SubQ, ea addt'l 20sq cm 2 or part thereof *1. coccyx -Time 09:27 -Correct Patient Yes -Correct Side, Site, Position Yes -Correct Procedure Yes -Procedure Performed Yes -Type of Procedure Debridement -Clinical Debridement Muscle / Fascia -Tissue Removed Subcutaneous, Muscle,Fascia -Post Debridement (cm) - Length 15 -Post Debridement (cm) - Width 16 -Post Debridement (cm) - Depth 0.1 -Total Square (Post) (cm) 240 -Area of Debridement (cm) - Length 15 -Area of Debridement (cm) - Width 16 -Total Square (Area) (cm) 240 -Tunneling No -Undermining/Tunneling No -Circular Undermining No -Wound/Ulcer Outcome Not Healed -Ulcer Cleansing Rinsed/ Irrigated with Saline -Foul Odor after Cleansing No -Bioengineered Tissue No -Bleeding Controlled with Pressure -Treatment Response Procedure Tolerated Well -Debridement - Muscle / Fascia, 1st Yes 20sq cm -Debridement, Muscle/Fascia, ea addt'l 11 20sq cm or part thereof Pain Scale: 0-10 Numeric Is Patient Pain Free? Yes WC - Nurse 3 - General Ulcer D/C NN Start: 08/17/24 09:15 Freq: Status: Active Protocol: Activity Type Activity Date Activity User E-sign Co-sign Detail Recorded Client Recorded Date Recorded By Document 08/17/24 09:58 DS [id number] 08/17/24 10:01 DS Edit Result 08/17/24 09:58 DS (1) [id number] 08/17/24 10:04 DS (1) 3. R ischium - Primary Dressing Applied Silvercel, => Optilok 5x5 1/2, Surgifoam => Optilok 6.5x10, => Silvercel, => Surgifoam - Optilok 5x5 1/2 => 0 - Optilok 6.5x10 => 0 2. L ischium - Primary Dressing Applied Silvercel => Optilok 5x5 1/2, => Optilok 6.5x10, => Silvercel, => Surgifoam - Optilok 5x5 1/2 => 0 - Optilok 6.5x10 => 0 - Surgifoam 12-7mm (3/4 x 2 3/8) => 0 08/17/24 09:58 Wound Care Center Nurse 3 3. R ischium -Ulcer Cleansing Rinsed/ Irrigated with Saline -Primary Dressing Applied Optilok 5x5 1/2 ,Optilok 6.5x10 ,Silvercel, Surgifoam -Optilok 5x5 1/2 0 -Optilok 6.5x10 0 -Silvercel 0 -Surgifoam 12-7mm (3/4 x 2 3/8) 2 2. L ischium -Primary Dressing Applied Optilok 5x5 1/2 ,Optilok 6.5x10 ,Silvercel, Surgifoam -Optilok 5x5 1/2 0 -Optilok 6.5x10 0 -Silvercel 0 -Surgifoam 12-7mm (3/4 x 2 3/8) 0 *1. coccyx -Ulcer Cleansing Rinsed/ Irrigated with Saline -Primary Dressing Applied Optilok 5x5 1/2 ,Optilok 6.5x10 ,Silvercel -Optilok 5x5 1/2 1 -Optilok 6.5x10 1 -Silvercel 2 Pain Scale: 0-10 Numeric Is Patient Pain Free? Yes Additional Wound Wound debrided: right ischium Laterality: Right Wound Grade/Stage: Stage III Type of Debridement: Excisional debridement Anesthesia Used: 4% Lidocaine Solution Depth: Down to and including healthy tissue and in the subcutaneous layer Percentage of wound debrided: 100 Instrument Used: 7mm curette Tissue Removed: Yellow slough, devitalized tissue Severity: Fat Layer Exposed Amount of bleeding with debridement: Moderate Bleeding Controlled with: Silver Nitrate and Gel Foam Patient tolerated procedure: Patient tolerated procedure well Additional Wound Wound debrided: coccyx Laterality: Not Applicable Wound Grade/Stage: Stage IV Type of Debridement: Excisional debridement Anesthesia Used: 4% Lidocaine Solution Depth: Down to and including healthy tissue, in the subcutaneous layer and to muscle Percentage of wound debrided: 100 Tissue Removed: Yellow slough, devitalized tissue Severity: Necrosis of Muscle Amount of bleeding with debridement: Mild Bleeding Controlled with: Compression and gauze Patient tolerated procedure: Patient tolerated procedure well Assessment/Plan Assessment/Plan (1) Chronic pain: CODE(S): G89.29 - Other chronic pain QUALIFIERS: Chronic pain type: chronic pain syndrome Qualified Code(s): G89.4 - Chronic pain syndrome (2) Hypoxia: CODE(S): R09.02 - Hypoxemia (3) History of paraplegia: CODE(S): Z86.69 - Personal history of other diseases of the nervous system and sense organs (4) Chronic indwelling Campbell catheter: CODE(S): Z97.8 - Presence of other specified devices (5) Type 2 diabetes mellitus: CODE(S): E11.9 - Type 2 diabetes mellitus without complications QUALIFIERS: Diabetes mellitus terminal manager insulin use: without mcc use Diabetes mellitus complication status: with neurologic complications Diabetes mellitus complication detail: with polyneuropathy Qualified Code(s): E11.42 - Type 2 diabetes mellitus with diabetic polyneuropathy (6) Chronic anticoagulation: CODE(S): Z79.01 - residential (current) use of anticoagulants (7) History of deep vein thrombosis: CODE(S): Z86.718 - Personal history of other venous thrombosis and embolism (8) Decubitus ulcer of sacral region, stage 4: CODE(S): L89.154 - Pressure ulcer of sacral region, stage 4 (9) Decubitus ulcer of left perineal ischial region, stage 2: CODE(S): L89.322 - Pressure ulcer of left buttock, stage 2 (10) Hx of spinal surgery: CODE(S): Z98.890 - Other specified postprocedural states (11) Colostomy status: CODE(S): Z93.3 - Colostomy status (12) HTN (hypertension): CODE(S): I10 - Essential (primary) hypertension QUALIFIERS: Hypertension type: primary hypertension Qualified Code(s): I10 - Essential (primary) hypertension (13) BATOOL treated with BiPAP: CODE(S): G47.33 - Obstructive sleep apnea (adult) (pediatric) (14) Lymphedema: CODE(S): I89.0 - Lymphedema, not elsewhere classified (15) Decubitus ulcer of right ischium, stage 3: CODE(S): L89.313 - Pressure ulcer of right buttock, stage 3 PLAN: Plan Debridement performed today in clinic as annotated above. At home wound-care instructions: The patient's ulcers will be washed with antibacterial soap and water and then will apply Aquacel Ag and gauze and superabsorber for heavy drainage twice daily. Keep dressing clean and dry. Off-loading: The patient was instructed to avoid pressure and friction on the affected areas. Reposition every 2 hours at minimum. Avoid prolonged standing and/or dangling of legs. When seated, feet should be elevated at chest level. Continue air mattress. Will write order for an alternating pressure air mattress to assist in offloading pressure. Diet: Patient encouraged to increase protein intake while taking caution to avoid high carbohydrate and/or sugar intake. He is getting Wiliam protein supplement at [facility]. Labs/cultures/imaging: Will obtain previous imaging results. Most recent A1C 7.9% on 07/23/24. Follow-up: Return in 1 week for wound care follow up. Return sooner or report to the emergency room should symptoms worsen, or new symptoms arise. Note: [employer] speech recognition manager statistics software was used to create portions of this document. Sound-alike and misspelled words, as well as other manager statistics errors may be contained in the documentation.
--- NOTE | 2024-08-20 08:20 | WC ---
PHOTO 08/17/24 LEFT ISCHIUM
--- NOTE | 2024-08-20 08:21 | WC ---
PHOTO 08/17/24 SACRAL
[2024-08-31 09:21] VITALS: BP 138/68; PULSE 94; RESP 20; TEMP 36.3; BMI 43.3
--- NOTE | 2024-08-31 14:45 | PN.PCM_ITS ---
History of Present Illness Date of Service: 08/31/24 Chief Complaint: sacral decubitus ulcer History of Wound: Jani is a pleasant 59 yo gentleman that has undergone an unfortunate series of events over the last several years which has left him paraplegic and with a sacral decubitus ulcer and residing in [facility]. He has been referred to the wound center for evaluation and treatment of his sacral ulcer. He has had a long history of degenerative disc disease of his spine and underwent spine surgery in August 2016 initially and then again in February 2017 due to osteomyelitis and infection of hardware. He underwent further surgery for fusion in December of 2020. He fell in November of 2022 getting up from his chair and then experienced worsening pain, weakness in his legs and ultimately became paraplegic from the waist down. He underwent surgery in [place] in January 2023 at [facility] and then had several complications including pneumonia, pulmonary embolisms and a sacral ulcer that developed into a large defect after multiple surgical debridements and osteomyelitis of his sacrum while at [facility] through the first part 2023 and then attempted to come home to be cared for by his elderly mother which was not successful and he was hospitalized and discharged to [facility] where he has been residing and continues to reside. He has undergone many different treatments for his sacral ulcer including wound vac, silver dressings and Dakins and does have an air mattress but it is not an alternating pressure air mattress. The staff does try to offload his ulcer with wedges and pillows but it is difficult due to his chronic back pain. He is currently having the wound dressed with Dakins wet to dry and super absorber dressings twice daily. he reports being on chronic antibiotic treatment and IV treatment over the past year and states that he had MRI that showed resolution of osteomyelitis. (Records unavailable). He currently does not have any symptoms of systemic infection or localized infection. Denies fever, chills, nausea. Subjective Subjective Jani returns today for evaluation and treatment of a sacral decubitus ulcer. He has been tolerating dressing changes with Aquacel Extra and super absorber dressings. He has had some increase in drainage from his ulcer this past week. Denies fever, chills, erythema. Objective Data Objective Data Vital Signs: Vital Signs Temp Pulse Resp BP Pulse Ox O2 Del Method O2 Flow Rate 97.3 F L 94 20 H 138/68 H 96 Nasal Cannula 2 04/18/25 09:21 08/31/24 09:21 08/31/24 09:21 08/31/24 09:21 08/17/24 09:15 08/31/24 09:21 08/31/24 09:21 Oxygen Flow Rate (L/min) 2 Oxygen Delivery Method Nasal Cannula Weight: 141.067 kg Body Mass Index (BMI) 43.3 Physical Exam Const alert, oriented x3, no apparent distress and well nourished; Negative for average body habitus or healthy appearing Constitutional Narrative: Morbidly obese, middle-aged, white male, sitting up in bed, appears comfortable and nontoxic HEENT head/scalp atraumatic and moist oral mucous membranes Resp normal respiratory effort, no retractions, no use of accessory muscles and clear to auscultation bilaterally Resp Narrative: Distant due to body habitus Cardio regular rate, regular rhythm, S1 normal heart sound, S2 normal heart sound, no murmurs, no rub, no gallops and no clicks GI normal to inspection, nondistended, normoactive bowel sounds, soft to palpation and non-tender GI Narrative: colostomy present Extremity Extremity Narrative: Chronic bilateral lower extremity edema due to history of paraplegia and lack of movement, no cyanosis or clubbing General Extremity: edema bilateral lower extremity Details: moderate Skin Wounds: wounds noted Wound Narrative: as noted in clinical panel - large sacral ulcer and right ischial ulcer, no visible bone, shearing injury of left ischial area, area is irregular with fringe like skin in areas from repetitive shearing and pressure Neuro oriented x3, CN's II-XII intact bilaterally, No moves all extremities, No no focal motor deficits and No no sensory deficits noted Neuro Narrative: Bilateral lower extremity flaccidity due to history of L1 injury Speech: speech normal Psych affect normal Psych Narrative: Very pleasant, interacts appropriately Debridement Note Debridement Note Wound debrided: left ischium Laterality: Left Wound Grade/Stage: Stage 2 Anesthesia Used: 4% Lidocaine Solution Depth: Down to and including healthy tissue and in the subcutaneous layer Percentage of wound debrided: 100 Instrument Used: 7mm curette Tissue Removed: Yellow slough, devitalized tissue Severity: Limited To Skin Breakdown Amount of bleeding with debridement: None Patient tolerated procedure: Patient tolerated procedure well Post-Debridement Measurements and Additional Note: Post-Debridement Measurements/Treatment WC - Nurse 1 - General Ulcer Assessment Start: 08/17/24 09:15 Freq: Status: Active Protocol: BONITA.LOWEXT Activity Type Activity Date Activity User E-sign Co-sign Detail Recorded Client Recorded Date Recorded By Document 08/17/24 09:15 RB [id number] 08/17/24 09:23 RB Document 08/31/24 09:21 DS [id number] 08/31/24 09:25 DS 08/17/24 08/31/24 09:15 09:21 WC - Today's Visit Information Type of service Follow-up Visit Follow-up Visit (Physician/GUN PERFORATOR (Physician/GUN PERFORATOR ) ) Arrival Mode Stretcher Wheelchair Arrival Mode (Other) [facility] TRANSPORTATION Transfer Assistance Manual Kelli Lift Accompanied by AIDE Patient Identification Verified (Name & Yes Yes ) Patient Requires Transmission-Based No No Precautions Safety Precautions Fall Prevention Finger Stick Blood Sugar(mg/dl) (if 309 indicated): Blood Sugar Stated by Patient Height and Weight Height 5 ft 11 in Weight 141.067 kg Weight in Pounds 311.0 lbs Body Mass Index (BMI) 43.3 43.3 BMI Classification Obese Obese Vital Signs Temperature (97.8 F-99.1 F) 97.9 F 97.3 F L Temperature Source Temporal Temporal Pulse Rate (60-100) 101 H 94 Pulse Location Monitor Monitor Respiratory Rate (12-18) 18 20 H Respiratory rate source Observation Observation Pulse Oximetry 96 Oxygen Delivery Method Nasal Cannula Nasal Cannula O2 L/MIN (L/min) 3 2 Blood Pressure (90/60-120/80) 130/74 H 138/68 H Blood Pressure Mean (mm Hg) 92 91 Source Monitor Monitor Position Semi-Fowlers Semi-Fowlers Blood Pressure Location Left Arm Right Forearm History Since Last Visit- (Skip if this is Patient's initial visit) Have you changed medications since your No No last visit? Any new allergies or adverse reactions No No Had a fall/change in ADL's that may No No increase risk of falls Signs or symptoms of abuse and/or No No neglect since last visit Have you been in the hospital since your No No last visit? Has dressing in place as prescribed Yes Yes Has compression in place as prescribed N/A N/A Has offloadiing in place as prescribed No N/A Experienced any changes in pain level or Yes Yes management Pain Scale: 0-10 Numeric Is Patient Pain Free? Yes Yes BACK -Description Aching -Intensity 7 -Duration (hours) Chronic -Pain Behavior Thrashing -Alleviating Factors/Interventions Turning/ Repositioning, Will continue to monitor Communication Assessment Preferred language Welsh Passenger Representative Required No Able to Read Yes Able to Write Yes Communication Tools None Caregiver Communication Skills No Impairment Impairment Right Hearing Abillity Normal Left Hearing Abillity Normal Visual Assistive Devices None Teaching Assessment Preferences Verbal,Written, Demonstration Barriers to Learning None Readiness To Learn Good Willingness to Engage in Self Management Med Activies Readiness to Engage in Self Management Med Activities Anxiety Level Calm Cooperation Cooperative Perception Coherent Interest in Health Problem Asks Questions Education Importance Acknowledges Need Does Patient Smoke tobacco or other No substances Smoking Status Never smoker Is Patient Diabetic Yes Functional Assessment Recent Decline in Ability to Perform Ambulation, Bathing,Lower Body Dressing, Toileting, Transferring, Upper Body Dressing Culture/Gnosticist/Retail Pharmacy Merchandiser Cultural/Gnosticist Needs that may affect No Treatment Plan Would you allow our hospital credit support counselor to No meet you for the purpose of spiritual/ emotional support? Retail Pharmacy Merchandiser to contact place of restoration No WC - Nurse 1 - General Ulcer Measurement Start: 08/17/24 09:15 Freq: Status: Active Protocol: Activity Type Activity Date Activity User E-sign Co-sign Detail Recorded Client Recorded Date Recorded By Document 08/17/24 09:15 RB [id number] 08/17/24 09:23 RB Document 08/31/24 09:25 DS [id number] 08/31/24 09:26 DS 08/17/24 08/31/24 09:15 09:25 Wound Center Nurse 1 3. R ischium -Current Size (cm) - Length 0.1 -Current Size (cm) - Width 0.1 -Current Size (cm) - Depth 0.1 -Total Square Cm 0.01 -Date of Last Picture (Recall this 08/31/24 field) -Photo Taken Yes -Tunneling No -Undermining/Tunneling No -Circular Undermining No -Wound Margin Distinct, Outline Attached -Granulation Amt Medium (34-66%) -Granulation Quality [place] -Necrosis Amt Medium (34-66%) -Necrotic Tissue Type Adherent Slough -Texture (Trish-wound Skin Appearance) Assessed -Moisture (Rtish-wound Skin Appearance) Assessed -Color (Trish-wound Skin Appearance) Assessed -Temperature (Trish-wound Skin No Abnormality Appearance) (Pt Warm) -Tenderness on Palpation (Trish-wound No Skin Appearance) -Ulcer Cleansing Soap and Water -Foul Odor after Cleansing No -Anesthetic Used 4% Lidocaine Solution 2. L ischium -Combined with other wound No -Current Size (cm) - Length 6 0.1 -Current Size (cm) - Width 5 0.1 -Current Size (cm) - Depth 0.1 0.1 -Total Square Cm 30 0.01 -Date of Last Picture (Recall this 08/31/24 field) -Photo Taken Yes Yes -Tunneling No No -Undermining/Tunneling No No -Circular Undermining No No -Exudate Amt Large Medium -Exudate Type Serosanguineous Serosanguineous -Wound Margin Indistinct, Non Distinct, -Visible Outline Attached -Granulation Amt Large (67-100%) -Granulation Quality [place] -Slough/Fibrin Yes -Necrosis Amt Small (1-33%) -Necrotic Tissue Type Adherent Slough -Structure Exposed N/A -Texture (Trish-wound Skin Appearance) Assessed, Assessed Excoriation -Moisture (Trish-wound Skin Appearance) Assessed Assessed -Color (Trish-wound Skin Appearance) Erythema Assessed -Temperature (Trish-wound Skin No Abnormality No Abnormality Appearance) (Pt Warm) (Pt Warm) -Tenderness on Palpation (Trish-wound No No Skin Appearance) -Ulcer Cleansing Wound Cleanser Soap and Water -Foul Odor after Cleansing No No -Anesthetic Used 4% Lidocaine 4% Lidocaine Solution Solution *1. coccyx -Combined with other wound No -Current Size (cm) - Length 15 0.1 -Current Size (cm) - Width 18 0.1 -Current Size (cm) - Depth 2.7 0.1 -Total Square Cm 270 0.01 -Photo Taken Yes No -Tunneling No No -Undermining/Tunneling No No -Circular Undermining No No -Exudate Amt Large -Exudate Type Serosanguineous -Wound Margin Fibrotic Scar, Distinct, Thickened Scar Outline Attached -Granulation Amt Large (67-100%) -Granulation Quality [place] -Slough/Fibrin Yes -Necrosis Amt Large (67-100%) -Necrotic Tissue Type Adherent Slough -Structure Exposed Bone -Texture (Trish-wound Skin Appearance) Excoriation, Assessed Scarring -Moisture (Trish-wound Skin Appearance) Assessed, Assessed Maceration, Weeping -Color (Trish-wound Skin Appearance) Erythema Assessed -Temperature (Trish-wound Skin No Abnormality No Abnormality Appearance) (Pt Warm) (Pt Warm) -Tenderness on Palpation (Trish-wound No No Skin Appearance) -Ulcer Cleansing Wound Cleanser Soap and Water -Foul Odor after Cleansing No No -Anesthetic Used 4% Lidocaine 4% Lidocaine Solution Solution WC - Nurse 2 - General Ulcer CM Notes Start: 08/17/24 09:15 Freq: Status: Active Protocol: Activity Type Activity Date Activity User E-sign Co-sign Detail Recorded Client Recorded Date Recorded By Document 08/17/24 09:26 DS [id number] 08/17/24 09:58 DS Document 08/31/24 09:36 GM [id number] 08/31/24 09:56 GM 08/17/24 08/31/24 09:26 09:36 Wound Center Nurse 2 3. R ischium -Time 09:27 09:36 -Correct Patient Yes Yes -Correct Side, Site, Position Yes Yes -Correct Procedure Yes Yes -Procedure Performed Yes Yes -Type of Procedure Debridement Debridement -Clinical Debridement Subcutaneous Muscle / Fascia -Tissue Removed Subcutaneous Muscle -Post Debridement (cm) - Length 9.3 9.5 -Post Debridement (cm) - Width 4.5 6.0 -Post Debridement (cm) - Depth 0.1 0.1 -Total Square (Post) (cm) 41.85 57.00 -Area of Debridement (cm) - Length 9.3 9.5 -Area of Debridement (cm) - Width 4.5 6.0 -Total Square (Area) (cm) 41.85 57.00 -Tunneling No No -Undermining/Tunneling No No -Circular Undermining No No -Wound/Ulcer Outcome Not Healed Not Healed -Ulcer Cleansing Rinsed/ Rinsed/ Irrigated with Irrigated with Saline Saline -Foul Odor after Cleansing No No -Bioengineered Tissue No No -Bleeding Controlled with Pressure,Silver Pressure Nitrate, SURGIFOAM -Treatment Response Procedure Procedure Tolerated Well Tolerated Well -Debridement - Subq, 1st 20sq cm No -Debridement - Muscle / Fascia, 1st No 20sq cm -Wound Comment(s) 2 silver nitrate sticks and 2 surgifoam 2. L ischium -Time 09:26 09:37 -Correct Patient Yes Yes -Correct Side, Site, Position Yes Yes -Correct Procedure Yes Yes -Procedure Performed Yes Yes -Type of Procedure Debridement Debridement -Clinical Debridement Subcutaneous Subcutaneous -Tissue Removed Subcutaneous Subcutaneous -Post Debridement (cm) - Length 2.0 2.0 -Post Debridement (cm) - Width 3.0 3.0 -Post Debridement (cm) - Depth 0.1 0.1 -Total Square (Post) (cm) 6.00 6.00 -Area of Debridement (cm) - Length 2.0 2.0 -Area of Debridement (cm) - Width 3.0 3.0 -Total Square (Area) (cm) 6.00 6.00 -Tunneling No No -Undermining/Tunneling No No -Circular Undermining No No -Wound/Ulcer Outcome Not Healed Not Healed -Ulcer Cleansing Rinsed/ Rinsed/ Irrigated with Irrigated with Saline Saline -Foul Odor after Cleansing No No -Bioengineered Tissue No No -Bleeding Controlled with Pressure Pressure -Treatment Response Procedure Procedure Tolerated Well Tolerated Well -Debridement - Subq, 1st 20sq cm Yes Yes -Debridement, SubQ, ea addt'l 20sq cm 2 or part thereof *1. coccyx -Time 09:27 09:37 -Correct Patient Yes Yes -Correct Side, Site, Position Yes Yes -Correct Procedure Yes Yes -Procedure Performed Yes Yes -Type of Procedure Debridement Debridement -Clinical Debridement Muscle / Fascia Muscle / Fascia -Tissue Removed Subcutaneous, Muscle Muscle,Fascia -Post Debridement (cm) - Length 15 7.5 -Post Debridement (cm) - Width 16 16.0 -Post Debridement (cm) - Depth 0.1 0.1 -Total Square (Post) (cm) 240 120.00 -Area of Debridement (cm) - Length 15 7.5 -Area of Debridement (cm) - Width 16 16.0 -Total Square (Area) (cm) 240 120.00 -Tunneling No No -Undermining/Tunneling No No -Circular Undermining No No -Wound/Ulcer Outcome Not Healed Not Healed -Ulcer Cleansing Rinsed/ Rinsed/ Irrigated with Irrigated with Saline Saline -Foul Odor after Cleansing No No -Bioengineered Tissue No No -Bleeding Controlled with Pressure Pressure -Treatment Response Procedure Procedure Tolerated Well Tolerated Well -Debridement - Muscle / Fascia, 1st Yes Yes 20sq cm -Debridement, Muscle/Fascia, ea addt'l 11 8 20sq cm or part thereof Pain Scale: 0-10 Numeric Is Patient Pain Free? Yes Yes WC - Nurse 3 - General Ulcer D/C NN Start: 08/17/24 09:15 Freq: Status: Active Protocol: Activity Type Activity Date Activity User E-sign Co-sign Detail Recorded Client Recorded Date Recorded By Document 08/17/24 09:58 DS [id number] 08/17/24 10:01 DS Edit Result 08/17/24 09:58 DS (1) [id number] 08/17/24 10:04 DS Document 08/31/24 11:01 DS [id number] 08/31/24 11:03 DS (1) 3. R ischium - Primary Dressing Applied Silvercel, => Optilok 5x5 1/2, Surgifoam => Optilok 6.5x10, => Silvercel, => Surgifoam - Optilok 5x5 1/2 => 0 - Optilok 6.5x10 => 0 2. L ischium - Primary Dressing Applied Silvercel => Optilok 5x5 1/2, => Optilok 6.5x10, => Silvercel, => Surgifoam - Optilok 5x5 1/2 => 0 - Optilok 6.5x10 => 0 - Surgifoam 12-7mm (3/4 x 2 3/8) => 0 08/17/24 08/31/24 09:58 11:01 Wound Care Center Nurse 3 3. R ischium -Ulcer Cleansing Rinsed/ Irrigated with Saline -Primary Dressing Applied Optilok 5x5 1/2 Optilok 6.5x10, ,Optilok 6.5x10 Silvercel ,Silvercel, Surgifoam -Other Dressing fluff gauze -Primary Dressing Covered/Secured with Secured with Tape -Optilok 5x5 1/2 0 -Optilok 6.5x10 0 0 -Silvercel 0 0 -Surgifoam 12-7mm (3/4 x 2 3/8) 2 2. L ischium -Primary Dressing Applied Optilok 5x5 1/2 Optilok 6.5x10, ,Optilok 6.5x10 Silvercel ,Silvercel, Surgifoam -Other Dressing fluff gauze -Primary Dressing Covered/Secured with Secured with Tape -Optilok 5x5 1/2 0 -Optilok 6.5x10 0 1 -Silvercel 0 1 -Surgifoam 12-7mm (3/4 x 2 3/8) 0 *1. coccyx -Ulcer Cleansing Rinsed/ Irrigated with Saline -Primary Dressing Applied Optilok 5x5 1/2 Fibracol Plus ,Optilok 6.5x10 4x4,Optilok 6. ,Silvercel 5x10,Silvercel -Other Dressing fluff gauze -Primary Dressing Covered/Secured with Secured with Tape -Fibracol Plus 4x4 1 -Optilok 5x5 1/2 1 -Optilok 6.5x10 1 1 -Silvercel 2 1 Pain Scale: 0-10 Numeric Is Patient Pain Free? Yes Yes WC - Visit Discharge Discharge Condition Stable Ambulatory Status Wheelchair Transportation ma transport Additional Wound Wound debrided: right ischium Laterality: Right Wound Grade/Stage: Stage III Type of Debridement: Excisional debridement Anesthesia Used: 4% Lidocaine Solution Depth: Down to and including healthy tissue and in the subcutaneous layer Percentage of wound debrided: 100 Instrument Used: 7mm curette Tissue Removed: Yellow slough, devitalized tissue Severity: Fat Layer Exposed Amount of bleeding with debridement: Moderate Bleeding Controlled with: Silver Nitrate and Gel Foam Patient tolerated procedure: Patient tolerated procedure well Additional Wound Wound debrided: coccyx Laterality: Not Applicable Wound Grade/Stage: Stage IV Type of Debridement: Excisional debridement Anesthesia Used: 4% Lidocaine Solution Depth: Down to and including healthy tissue, in the subcutaneous layer and to muscle Percentage of wound debrided: 100 Tissue Removed: Yellow slough, devitalized tissue Severity: Necrosis of Muscle Amount of bleeding with debridement: Mild Bleeding Controlled with: Compression and gauze Patient tolerated procedure: Patient tolerated procedure well Assessment/Plan Assessment/Plan (1) Chronic pain: CODE(S): G89.29 - Other chronic pain QUALIFIERS: Chronic pain type: chronic pain syndrome Qualified Code(s): G89.4 - Chronic pain syndrome (2) Hypoxia: CODE(S): R09.02 - Hypoxemia (3) History of paraplegia: CODE(S): Z86.69 - Personal history of other diseases of the nervous system and sense organs (4) Chronic indwelling Campbell catheter: CODE(S): Z97.8 - Presence of other specified devices (5) Type 2 diabetes mellitus: CODE(S): E11.9 - Type 2 diabetes mellitus without complications QUALIFIERS: Diabetes mellitus halfway insulin use: without halfway use Diabetes mellitus complication status: with neurologic complications Diabetes mellitus complication detail: with polyneuropathy Qualified Code(s): E11.42 - Type 2 diabetes mellitus with diabetic polyneuropathy (6) Chronic anticoagulation: CODE(S): Z79.01 - USP (current) use of anticoagulants (7) History of deep vein thrombosis: CODE(S): Z86.718 - Personal history of other venous thrombosis and embolism (8) Decubitus ulcer of sacral region, stage 4: CODE(S): L89.154 - Pressure ulcer of sacral region, stage 4 (9) Decubitus ulcer of left perineal ischial region, stage 2: CODE(S): L89.322 - Pressure ulcer of left buttock, stage 2 (10) Hx of spinal surgery: CODE(S): Z98.890 - Other specified postprocedural states (11) Colostomy status: CODE(S): Z93.3 - Colostomy status (12) HTN (hypertension): CODE(S): I10 - Essential (primary) hypertension QUALIFIERS: Hypertension type: primary hypertension Qualified Code(s): I10 - Essential (primary) hypertension (13) BATOOL treated with BiPAP: CODE(S): G47.33 - Obstructive sleep apnea (adult) (pediatric) (14) Lymphedema: CODE(S): I89.0 - Lymphedema, not elsewhere classified (15) Decubitus ulcer of right ischium, stage 3: CODE(S): L89.313 - Pressure ulcer of right buttock, stage 3 PLAN: Plan Debridement performed today in clinic as annotated above. At home wound-care instructions: The patient's ulcers will be washed with antibacterial soap and water and then will apply Aquacel Ag and gauze and superabsorber for heavy drainage twice daily. Will apply Fibracol to sacral area prior to Aquacel Ag, gauze and superabsorber. Keep dressing clean and dry. Off-loading: The patient was instructed to avoid pressure and friction on the affected areas. Reposition every 2 hours at minimum. Avoid prolonged standing and/or dangling of legs. When seated, feet should be elevated at chest level. Continue air mattress. Will write order for an alternating pressure air mattress to assist in offloading pressure. Diet: Patient encouraged to increase protein intake while taking caution to avoid high carbohydrate and/or sugar intake. He is getting [place] protein supplement at [facility]. Labs/cultures/imaging: Will obtain previous imaging results. Most recent A1C 7.9% on 07/23/24. Follow-up: Return in 1 week for wound care follow up. Return sooner or report to the emergency room should symptoms worsen, or new symptoms arise. Note: [employer] speech recognition front end software developer software was used to create portions of this document. Sound-alike and misspelled words, as well as other front end software developer errors may be contained in the documentation.
--- NOTE | 2024-09-03 13:11 | WC ---
PHOTO 08/31/24 MAURO
--- NOTE | 2024-09-03 13:12 | WC ---
PHOTO 09/03/24 MAURO
--- NOTE | 2024-09-03 13:12 | WC ---
PHOTO 08/31/24 BLE ISCHIUM
[2024-09-07 09:44] VITALS: BP 141/73; PULSE 108; RESP 16; TEMP 36.1; BMI 43.3
--- NOTE | 2024-09-07 15:13 | PCM.WC.PN ---
History of Present Illness Date of Service: 09/07/24 Chief Complaint: sacral decubitus ulcer History of Wound: Jani is a pleasant 59 yo gentleman that has undergone an unfortunate series of events over the last several years which has left him paraplegic and with a sacral decubitus ulcer and residing in [facility]. He has been referred to the wound center for evaluation and treatment of his sacral ulcer. He has had a long history of degenerative disc disease of his spine and underwent spine surgery in August 2016 initially and then again in February 2017 due to osteomyelitis and infection of hardware. He underwent further surgery for fusion in December of 2020. He fell in November of 2022 getting up from his chair and then experienced worsening pain, weakness in his legs and ultimately became paraplegic from the waist down. He underwent surgery in [place] in January 2023 at [facility] and then had several complications including pneumonia, pulmonary embolisms and a sacral ulcer that developed into a large defect after multiple surgical debridements and osteomyelitis of his sacrum while at [facility] through the first part 2023 and then attempted to come home to be cared for by his elderly mother which was not successful and he was hospitalized and discharged to [facility] where he has been residing and continues to reside. He has undergone many different treatments for his sacral ulcer including wound vac, silver dressings and Dakins and does have an air mattress but it is not an alternating pressure air mattress. The staff does try to offload his ulcer with wedges and pillows but it is difficult due to his chronic back pain. He is currently having the wound dressed with Dakins wet to dry and super absorber dressings twice daily. he reports being on chronic antibiotic treatment and IV treatment over the past year and states that he had MRI that showed resolution of osteomyelitis. (Records unavailable). He currently does not have any symptoms of systemic infection or localized infection. Denies fever, chills, nausea. Subjective Subjective Jani returns today for evaluation and treatment of a sacral decubitus ulcer. He has been tolerating dressing changes with Aquacel Extra and super absorber dressings. His wound culture came back with multiple bacteria anaerobic and aerobic including VRE. He reports that his dressings were not changed as directed this week due to SNF being short staffed. Denies fever, chills, erythema. Objective Data Objective Data Vital Signs: Vital Signs Temp Pulse Resp BP Pulse Ox O2 Del Method O2 Flow Rate 97.0 F L 108 H 16 141/73 H 96 Nasal Cannula 2 09/07/24 09:44 09/07/24 09:44 09/07/24 09:44 09/07/24 09:44 08/17/24 09:15 09/07/24 09:44 08/31/24 09:21 Oxygen Flow Rate (L/min) 2 Oxygen Delivery Method Nasal Cannula Weight: 141.067 kg Body Mass Index (BMI) 43.3 Lab / Micro Data Micro: Microbiology 08/31/24 09:50 Wound - Buttock Gram Stain - Final 08/31/24 09:50 Wound - Buttock Wound Culture - Final Klebsiella pneumoniae sp pneum Proteus mirabilis Vancomycin Resist. E. faecalis Strep anginosus 08/31/24 09:50 Wound - Buttock Anaerobic Culture - Final Gram Positive Cocci Bacteroides fragilis Bacteroides ovatus Prevotella species Physical Exam Const alert, oriented x3, no apparent distress and well nourished Constitutional Narrative: Morbidly obese, middle-aged, white male, sitting up in bed, appears comfortable and nontoxic General Appearance: cooperative and comfortable Nutritional Appearance: morbidly obese HEENT head/scalp atraumatic and moist oral mucous membranes Resp normal respiratory effort, no retractions, no use of accessory muscles and clear to auscultation bilaterally Resp Narrative: Distant due to body habitus Cardio regular rate, regular rhythm, S1 normal heart sound, S2 normal heart sound, no murmurs, no rub, no gallops and no clicks GI normal to inspection, nondistended, normoactive bowel sounds, soft to palpation and non-tender GI Narrative: colostomy present Extremity Extremity Narrative: Chronic bilateral lower extremity edema due to history of paraplegia and lack of movement, no cyanosis or clubbing General Extremity: edema bilateral lower extremity Details: moderate Skin Wounds: wounds noted Wound Narrative: as noted in clinical panel - large sacral ulcer and right ischial ulcer, no visible bone, shearing injury of left ischial area, area is irregular with fringe like skin in areas from repetitive shearing and pressure Neuro oriented x3, CN's II-XII intact bilaterally, No moves all extremities, No no focal motor deficits and No no sensory deficits noted Neuro Narrative: Bilateral lower extremity flaccidity due to history of L1 injury Speech: speech normal Psych affect normal Psych Narrative: Very pleasant, interacts appropriately Debridement Note Debridement Note Wound debrided: left ischium Laterality: Left Wound Grade/Stage: Stage 2 Anesthesia Used: 4% Lidocaine Solution Depth: Down to and including healthy tissue and in the subcutaneous layer Percentage of wound debrided: 100 Instrument Used: 7mm curette Tissue Removed: Yellow slough, devitalized tissue Severity: Limited To Skin Breakdown Amount of bleeding with debridement: None Patient tolerated procedure: Patient tolerated procedure well Post-Debridement Measurements and Additional Note: Post-Debridement Measurements/Treatment - Nurse 1 - General Ulcer Assessment Start: 08/17/24 09:15 Freq: Status: Active Protocol: DailyPathRAMÓN Activity Type Activity Date Activity User E-sign Co-sign Detail Recorded Client Recorded Date Recorded By Document 08/17/24 09:15 RB [id number] 08/17/24 09:23 RB Document 08/31/24 09:21 DS [id number] 08/31/24 09:25 DS Document 09/07/24 09:44 KW [id number] 09/07/24 09:46 KW 08/17/24 08/31/24 09/07/24 09:15 09:21 09:44 - Today's Visit Information Type of service Follow-up Visit Follow-up Visit Follow-up Visit (Physician/[employer] (Physician/ASSEM[employer] (Physician/ASSEM[employer] ) ) ) Arrival Mode Stretcher Wheelchair Wheelchair Arrival Mode (Other) [place] TRANSPORTATION Transfer Assistance Manual Kelli Lift Kelli Lift Accompanied by AIDE Patient Identification Verified (Name & Yes Yes Yes ) Patient Requires Transmission-Based No No Precautions Safety Precautions Fall Prevention Finger Stick Blood Sugar(mg/dl) (if 309 indicated): Blood Sugar Stated by Patient Height and Weight Height 5 ft 11 in Weight 141.067 kg Weight in Pounds 311.0 lbs Body Mass Index (BMI) 43.3 43.3 43.3 BMI Classification Obese Obese Obese Vital Signs Temperature (97.8 F-99.1 F) 97.9 F 97.3 F L 97.0 F L Temperature Source Temporal Temporal Temporal Pulse Rate (60-100) 101 H 94 108 H Pulse Location Monitor Monitor Monitor Respiratory Rate (12-18) 18 20 H 16 Respiratory rate source Observation Observation Observation Pulse Oximetry 96 Oxygen Delivery Method Nasal Cannula Nasal Cannula Nasal Cannula O2 L/MIN (L/min) 3 2 Blood Pressure (90/60-120/80) 130/74 H 138/68 H 141/73 H Blood Pressure Mean (mm Hg) 92 91 95 Source Monitor Monitor Monitor Position Semi-Fowlers Semi-Fowlers Sitting Blood Pressure Location Left Arm Right Forearm Left Forearm History Since Last Visit- (Skip if this is Patient's initial visit) Have you changed medications since your No No No last visit? Any new allergies or adverse reactions No No No Had a fall/change in ADL's that may No No No increase risk of falls Signs or symptoms of abuse and/or No No No neglect since last visit Have you been in the hospital since your No No No last visit? Has dressing in place as prescribed Yes Yes Yes Has compression in place as prescribed N/A N/A N/A Has offloadiing in place as prescribed No N/A N/A Experienced any changes in pain level or Yes Yes No management Left Footwear No Footwear Right Footwear No Footwear Pain Scale: 0-10 Numeric Is Patient Pain Free? Yes Yes Yes BACK -Description Aching -Intensity 7 -Duration (hours) Chronic -Pain Behavior Thrashing -Alleviating Factors/Interventions Turning/ Repositioning, Will continue to monitor Communication Assessment Preferred language Romansh Hospitality Specialist Required No Able to Read Yes Able to Write Yes Communication Tools None Caregiver Communication Skills No Impairment Impairment Right Hearing Abillity Normal Left Hearing Abillity Normal Visual Assistive Devices None Teaching Assessment Preferences Verbal,Written, Demonstration Barriers to Learning None Readiness To Learn Good Willingness to Engage in Self Management Med Activies Readiness to Engage in Self Management Med Activities Anxiety Level Calm Cooperation Cooperative Perception Coherent Interest in Health Problem Asks Questions Education Importance Acknowledges Need Does Patient Smoke tobacco or other No substances Smoking Status Never smoker Is Patient Diabetic Yes Functional Assessment Recent Decline in Ability to Perform Ambulation, Bathing,Lower Body Dressing, Toileting, Transferring, Upper Body Dressing Culture/Zoroastrianism/[place] Cultural/Zoroastrianism Needs that may affect No Treatment Plan Would you allow our hospital customer agent to No meet you for the purpose of spiritual/ emotional support? [place] to contact place of pentecostal No WC - Nurse 1 - General Ulcer Measurement Start: 08/17/24 09:15 Freq: Status: Active Protocol: Activity Type Activity Date Activity User E-sign Co-sign Detail Recorded Client Recorded Date Recorded By Document 08/17/24 09:15 RB [id number] 08/17/24 09:23 RB Document 08/31/24 09:25 DS [id number] 08/31/24 09:26 DS Document 09/07/24 09:44 KW [id number] 09/07/24 09:46 KW 08/17/24 08/31/24 09/07/24 09:15 09:25 09:44 Wound Center Nurse 1 3. R ischium -Current Size (cm) - Length 0.1 7.7 -Current Size (cm) - Width 0.1 5.5 -Current Size (cm) - Depth 0.1 0.1 -Total Square Cm 0.01 42.35 -Date of Last Picture (Recall this 08/31/24 field) -Photo Taken Yes -Tunneling No -Undermining/Tunneling No -Circular Undermining No -Exudate Amt Large -Exudate Type Serosanguineous -Wound Margin Distinct, Outline Attached -Granulation Amt Medium (34-66%) Large (67-100%) -Granulation Quality Cando Red -Necrosis Amt Medium (34-66%) -Necrotic Tissue Type Adherent Slough -Texture (Trish-wound Skin Appearance) Assessed Assessed -Moisture (Trish-wound Skin Appearance) Assessed Assessed -Color (Trish-wound Skin Appearance) Assessed Assessed, Erythema, Hemosiderin Staining -Temperature (Trish-wound Skin No Abnormality No Abnormality Appearance) (Pt Warm) (Pt Warm) -Tenderness on Palpation (Trish-wound No No Skin Appearance) -Ulcer Cleansing Soap and Water Soap and Water -Foul Odor after Cleansing No No -Anesthetic Used 4% Lidocaine 4% Lidocaine Solution Solution 2. L ischium -Combined with other wound No -Current Size (cm) - Length 6 0.1 0.1 -Current Size (cm) - Width 5 0.1 0.1 -Current Size (cm) - Depth 0.1 0.1 0.1 -Total Square Cm 30 0.01 0.01 -Date of Last Picture (Recall this 08/31/24 field) -Photo Taken Yes Yes -Tunneling No No -Undermining/Tunneling No No -Circular Undermining No No -Exudate Amt Large Medium Large -Exudate Type Serosanguineous Serosanguineous Serosanguineous -Wound Margin Indistinct, Non Distinct, -Visible Outline Attached -Granulation Amt Large (67-100%) Large (67-100%) -Granulation Quality Cando Red -Slough/Fibrin Yes -Necrosis Amt Small (1-33%) -Necrotic Tissue Type Adherent Slough -Structure Exposed N/A -Texture (Trish-wound Skin Appearance) Assessed, Assessed Assessed Excoriation -Moisture (Trish-wound Skin Appearance) Assessed Assessed Assessed -Color (Trish-wound Skin Appearance) Erythema Assessed Assessed, Erythema, Hemosiderin Staining -Temperature (Trish-wound Skin No Abnormality No Abnormality No Abnormality Appearance) (Pt Warm) (Pt Warm) (Pt Warm) -Tenderness on Palpation (Trish-wound No No No Skin Appearance) -Ulcer Cleansing Wound Cleanser Soap and Water Soap and Water -Foul Odor after Cleansing No No No -Anesthetic Used 4% Lidocaine 4% Lidocaine 4% Lidocaine Solution Solution Solution *1. coccyx -Combined with other wound No -Current Size (cm) - Length 15 0.1 15 -Current Size (cm) - Width 18 0.1 15 -Current Size (cm) - Depth 2.7 0.1 0.2 -Total Square Cm 270 0.01 225 -Photo Taken Yes No -Tunneling No No -Undermining/Tunneling No No -Circular Undermining No No -Exudate Amt Large Large -Exudate Type Serosanguineous Serosanguineous -Wound Margin Fibrotic Scar, Distinct, Thickened Thickened Scar Outline Attached -Granulation Amt Large (67-100%) Large (67-100%) -Granulation Quality Cando Cando -Slough/Fibrin Yes -Necrosis Amt Large (67-100%) -Necrotic Tissue Type Adherent Slough -Structure Exposed Bone -Texture (Trish-wound Skin Appearance) Excoriation, Assessed Assessed Scarring -Moisture (Trish-wound Skin Appearance) Assessed, Assessed Assessed, Maceration, Maceration Weeping -Color (Trish-wound Skin Appearance) Erythema Assessed Assessed -Temperature (Trish-wound Skin No Abnormality No Abnormality No Abnormality Appearance) (Pt Warm) (Pt Warm) (Pt Warm) -Tenderness on Palpation (Trish-wound No No No Skin Appearance) -Ulcer Cleansing Wound Cleanser Soap and Water Soap and Water -Foul Odor after Cleansing No No No -Anesthetic Used 4% Lidocaine 4% Lidocaine 4% Lidocaine Solution Solution Solution WC - Nurse 2 - General Ulcer CM Notes Start: 08/17/24 09:15 Freq: Status: Active Protocol: Activity Type Activity Date Activity User E-sign Co-sign Detail Recorded Client Recorded Date Recorded By Document 08/17/24 09:26 DS [id number] 08/17/24 09:58 DS Document 08/31/24 09:36 GM [id number] 08/31/24 09:56 GM Document 09/07/24 10:01 GM [id number] 09/07/24 10:23 GM Edit Result 09/07/24 10:01 GM (1) [id number] 09/07/24 11:50 GM (1) *1. coccyx - Debridement, Muscle/Fascia, ea addt'l 13 => 14 20sq cm or part thereof 08/17/24 08/31/24 09/07/24 09:26 09:36 10:01 Wound Center Nurse 2 3. R ischium -Time 09: 09:36 10:01 -Correct Patient Yes Yes Yes -Correct Side, Site, Position Yes Yes Yes -Correct Procedure Yes Yes Yes -Procedure Performed Yes Yes Yes -Type of Procedure Debridement Debridement Debridement -Clinical Debridement Subcutaneous Muscle / Fascia Muscle / Fascia -Tissue Removed Subcutaneous Muscle Muscle -Post Debridement (cm) - Length 9.3 9.5 8.5 -Post Debridement (cm) - Width 4.5 6.0 5.0 -Post Debridement (cm) - Depth 0.1 0.1 0.1 -Total Square (Post) (cm) 41.85 57.00 42.50 -Area of Debridement (cm) - Length 9.3 9.5 8.5 -Area of Debridement (cm) - Width 4.5 6.0 5.0 -Total Square (Area) (cm) 41.85 57.00 42.50 -Tunneling No No No -Undermining/Tunneling No No No -Circular Undermining No No No -Wound/Ulcer Outcome Not Healed Not Healed Not Healed -Ulcer Cleansing Rinsed/ Rinsed/ Rinsed/ Irrigated with Irrigated with Irrigated with Saline Saline Saline -Foul Odor after Cleansing No No No -Bioengineered Tissue No No No -Bleeding Controlled with Pressure,Silver Pressure Pressure Nitrate, SURGIFOAM -Treatment Response Procedure Procedure Procedure Tolerated Well Tolerated Well Tolerated Well -Offloading No -Assistive Device(s) Wheelchair -Pressure Reduction Wheelchair cushion -Debridement - Subq, 1st 20sq cm No -Debridement - Muscle / Fascia, 1st No No 20sq cm -Wound Comment(s) 2 silver nitrate sticks and 2 surgifoam 2. L ischium -Time : 09:37 10:01 -Correct Patient Yes Yes Yes -Correct Side, Site, Position Yes Yes Yes -Correct Procedure Yes Yes Yes -Procedure Performed Yes Yes Yes -Type of Procedure Debridement Debridement Debridement -Clinical Debridement Subcutaneous Subcutaneous Subcutaneous -Tissue Removed Subcutaneous Subcutaneous Subcutaneous -Post Debridement (cm) - Length 2.0 2.0 1.0 -Post Debridement (cm) - Width 3.0 3.0 1.5 -Post Debridement (cm) - Depth 0.1 0.1 0.1 -Total Square (Post) (cm) 6.00 6.00 1.50 -Area of Debridement (cm) - Length 2.0 2.0 1.0 -Area of Debridement (cm) - Width 3.0 3.0 1.5 -Total Square (Area) (cm) 6.00 6.00 1.50 -Tunneling No No No -Undermining/Tunneling No No No -Circular Undermining No No No -Wound/Ulcer Outcome Not Healed Not Healed Not Healed -Ulcer Cleansing Rinsed/ Rinsed/ Rinsed/ Irrigated with Irrigated with Irrigated with Saline Saline Saline -Foul Odor after Cleansing No No No -Bioengineered Tissue No No No -Bleeding Controlled with Pressure Pressure Pressure -Treatment Response Procedure Procedure Procedure Tolerated Well Tolerated Well Tolerated Well -Offloading No -Debridement - Subq, 1st 20sq cm Yes Yes Yes -Debridement, SubQ, ea addt'l 20sq cm 2 or part thereof *1. coccyx -Time : 09:37 10:02 -Correct Patient Yes Yes Yes -Correct Side, Site, Position Yes Yes Yes -Correct Procedure Yes Yes Yes -Procedure Performed Yes Yes Yes -Type of Procedure Debridement Debridement Debridement -Clinical Debridement Muscle / Fascia Muscle / Fascia Muscle / Fascia -Tissue Removed Subcutaneous, Muscle Muscle Muscle,Fascia -Post Debridement (cm) - Length 15 7.5 15.0 -Post Debridement (cm) - Width 16 16.0 16.0 -Post Debridement (cm) - Depth 0.1 0.1 0.1 -Total Square (Post) (cm) 240 120.00 240.00 -Area of Debridement (cm) - Length 15 7.5 15.0 -Area of Debridement (cm) - Width 16 16.0 16.0 -Total Square (Area) (cm) 240 120.00 240.00 -Tunneling No No No -Undermining/Tunneling No No No -Circular Undermining No No No -Wound/Ulcer Outcome Not Healed Not Healed Not Healed -Ulcer Cleansing Rinsed/ Rinsed/ Rinsed/ Irrigated with Irrigated with Irrigated with Saline Saline Saline -Foul Odor after Cleansing No No No -Bioengineered Tissue No No No -Bleeding Controlled with Pressure Pressure Pressure -Treatment Response Procedure Procedure Procedure Tolerated Well Tolerated Well Tolerated Well -Offloading No -Assistive Device(s) Wheelchair -Pressure Reduction Wheelchair cushion -Debridement - Muscle / Fascia, 1st Yes Yes Yes 20sq cm -Debridement, Muscle/Fascia, ea addt'l 11 8 14 20sq cm or part thereof Pain Scale: 0-10 Numeric Is Patient Pain Free? Yes Yes Yes WC - Nurse 3 - General Ulcer D/C NN Start: 08/17/24 09:15 Freq: Status: Active Protocol: Activity Type Activity Date Activity User E-sign Co-sign Detail Recorded Client Recorded Date Recorded By Document 08/17/24 09:58 DS [id number] 08/17/24 10:01 DS Edit Result 08/17/24 09:58 DS (1) [id number] 08/17/24 10:04 DS Document 08/31/24 11:01 DS [id number] 08/31/24 11:03 DS Document 09/07/24 11:15 DS [id number] 09/07/24 11:17 DS (1) 3. R ischium - Primary Dressing Applied Silvercel, => Optilok 5x5 1/2, Surgifoam => Optilok 6.5x10, => Silvercel, => Surgifoam - Optilok 5x5 1/2 => 0 - Optilok 6.5x10 => 0 2. L ischium - Primary Dressing Applied Silvercel => Optilok 5x5 1/2, => Optilok 6.5x10, => Silvercel, => Surgifoam - Optilok 5x5 1/2 => 0 - Optilok 6.5x10 => 0 - Surgifoam 12-7mm (3/4 x 2 3/8) => 0 08/17/24 08/31/24 09/07/24 09:58 11:01 11:15 Wound Care Center Nurse 3 scrotum -Primary Dressing Applied Optilok 6.5x10 -Optilok 6.5x10 0 3. R ischium -Ulcer Cleansing Rinsed/ Irrigated with Saline -Primary Dressing Applied Optilok 5x5 1/2 Optilok 6.5x10, Hysept,Optilok ,Optilok 6.5x10 Silvercel 6.5x10 ,Silvercel, Surgifoam -Other Dressing fluff gauze -Primary Dressing Covered/Secured with Secured with Dry Gauze & Tape Roll Gauze, Secured with Tape -Hysept 0 -Optilok 5x5 1/2 0 -Optilok 6.5x10 0 0 1 -Silvercel 0 0 -Surgifoam 12-7mm (3/4 x 2 3/8) 2 2. L ischium -Primary Dressing Applied Optilok 5x5 1/2 Optilok 6.5x10, Hysept,Optilok ,Optilok 6.5x10 Silvercel 6.5x10 ,Silvercel, Surgifoam -Other Dressing fluff gauze -Primary Dressing Covered/Secured with Secured with Dry Gauze & Tape Roll Gauze -Hysept 0 -Optilok 5x5 1/2 0 -Optilok 6.5x10 0 1 1 -Silvercel 0 1 -Surgifoam 12-7mm (3/4 x 2 3/8) 0 *1. coccyx -Ulcer Cleansing Rinsed/ Irrigated with Saline -Primary Dressing Applied Optilok 5x5 1/2 Fibracol Plus Hysept,Optilok ,Optilok 6.5x10 4x4,Optilok 6. 6.5x10 ,Silvercel 5x10,Silvercel -Other Dressing fluff gauze -Primary Dressing Covered/Secured with Secured with Dry Gauze & Tape Roll Gauze, Secured with Tape -Fibracol Plus 4x4 1 -Hysept 0 -Optilok 5x5 1/2 1 -Optilok 6.5x10 1 1 0 -Silvercel 2 1 Pain Scale: 0-10 Numeric Is Patient Pain Free? Yes Yes Yes WC - Visit Discharge Discharge Condition Stable Stable Ambulatory Status Wheelchair Wheelchair Transportation nh transport ct transports Additional Wound Wound debrided: right ischium Laterality: Right Wound Grade/Stage: Stage III Type of Debridement: Excisional debridement Anesthesia Used: 4% Lidocaine Solution Depth: Down to and including healthy tissue and in the subcutaneous layer Percentage of wound debrided: 100 Instrument Used: 7mm curette Tissue Removed: Yellow slough, devitalized tissue Severity: Fat Layer Exposed Amount of bleeding with debridement: Moderate Bleeding Controlled with: Compression and gauze Patient tolerated procedure: Patient tolerated procedure well Additional Wound Wound debrided: coccyx Laterality: Not Applicable Wound Grade/Stage: Stage IV Type of Debridement: Excisional debridement Anesthesia Used: 4% Lidocaine Solution Depth: Down to and including healthy tissue, in the subcutaneous layer and to muscle Percentage of wound debrided: 100 Instrument Used: 7mm curette Tissue Removed: Yellow slough, devitalized tissue Severity: Necrosis of Muscle Amount of bleeding with debridement: Moderate Bleeding Controlled with: Compression and gauze Patient tolerated procedure: Patient tolerated procedure well Assessment/Plan Assessment/Plan (1) Chronic pain: CODE(S): G89.29 - Other chronic pain QUALIFIERS: Chronic pain type: chronic pain syndrome Qualified Code(s): G89.4 - Chronic pain syndrome (2) Hypoxia: CODE(S): R09.02 - Hypoxemia (3) History of paraplegia: CODE(S): Z86.69 - Personal history of other diseases of the nervous system and sense organs (4) Chronic indwelling Campbell catheter: CODE(S): Z97.8 - Presence of other specified devices (5) Type 2 diabetes mellitus: CODE(S): E11.9 - Type 2 diabetes mellitus without complications QUALIFIERS: Diabetes mellitus complication detail: with polyneuropathy Diabetes mellitus complication status: with neurologic complications Diabetes mellitus rat exterminator insulin use: without intermediate use Qualified Code(s): E11.42 - Type 2 diabetes mellitus with diabetic polyneuropathy (6) Chronic anticoagulation: CODE(S): Z79.01 - nursing home (current) use of anticoagulants (7) History of deep vein thrombosis: CODE(S): Z86.718 - Personal history of other venous thrombosis and embolism (8) Decubitus ulcer of sacral region, stage 4: CODE(S): L89.154 - Pressure ulcer of sacral region, stage 4 (9) Decubitus ulcer of left perineal ischial region, stage 2: CODE(S): L89.322 - Pressure ulcer of left buttock, stage 2 (10) Hx of spinal surgery: CODE(S): Z98.890 - Other specified postprocedural states (11) Colostomy status: CODE(S): Z93.3 - Colostomy status (12) HTN (hypertension): CODE(S): I10 - Essential (primary) hypertension QUALIFIERS: Hypertension type: primary hypertension Qualified Code(s): I10 - Essential (primary) hypertension (13) BATOOL treated with BiPAP: CODE(S): G47.33 - Obstructive sleep apnea (adult) (pediatric) (14) Lymphedema: CODE(S): I89.0 - Lymphedema, not elsewhere classified (15) Decubitus ulcer of right ischium, stage 3: CODE(S): L89.313 - Pressure ulcer of right buttock, stage 3 PLAN: Plan Debridement performed today in clinic as annotated above. At home wound-care instructions: The patient's ulcers will be washed with antibacterial soap and water and then will use Dakins wet to dry to wound bed and cover with gauze and superabsorber for heavy drainage twice daily. Keep dressing clean and dry. Off-loading: The patient was instructed to avoid pressure and friction on the affected areas. Reposition every 2 hours at minimum. Avoid prolonged standing and/or dangling of legs. When seated, feet should be elevated at chest level. Continue air mattress. Will write order for an alternating pressure air mattress to assist in offloading pressure. Diet: Patient encouraged to increase protein intake while taking caution to avoid high carbohydrate and/or sugar intake. He is getting Wiliam protein supplement at [facility]. Labs/cultures/imaging: Will obtain previous imaging results. Most recent A1C 7.9% on 07/23/24. Wound culture showed multiple bacteria and he was started on Flagyl and Cefdinir. Follow-up: Return in 1 week for wound care follow up. Return sooner or report to the emergency room should symptoms worsen, or new symptoms arise. Note: [email or web address] speech recognition special tester software was used to create portions of this document. Sound-alike and misspelled words, as well as other special tester errors may be contained in the documentation.
== END 2024-09-12 23:59 | disposition home or self-care (01) ==
LOC: WC 09:30
PROVIDERS: PCP Internal Medicine; Referring Provider Internal Medicine; Visit Provider Family Medicine
DX: L89.154 Pressure ulcer of sacral region, stage 4 (principal); L89.313 Pressure ulcer of right buttock, stage 3; G82.20 Paraplegia, unspecified; L89.322 Pressure ulcer of left buttock, stage 2; Z93.3 Colostomy status; E11.42 Type 2 diabetes mellitus with diabetic polyneuropathy; Z79.4 Long term (current) use of insulin; I10 Essential (primary) hypertension; G89.4 Chronic pain syndrome; I89.0 Lymphedema, not elsewhere classified; G47.33 Obstructive sleep apnea (adult) (pediatric); R09.02 Hypoxemia; M54.9 Dorsalgia, unspecified; Z79.01 Long term (current) use of anticoagulants; Z87.39 Personal history of other diseases of the musculoskeletal system and connective tissue; Z86.711 Personal history of pulmonary embolism; Z79.85 Long-term (current) use of injectable non-insulin antidiabetic drugs; Z79.899 Other long term (current) drug therapy
CPT/HCPCS: 11042; 11043; 11045; 11046; 87070; 87075; 87077; 87186; 87205; 99214; G0463

== ENCOUNTER → 2024-09-10 | Outpatient (REF) | payer MEDICAID, SELFPAY ==
[2024-09-10 09:14] LABS: Absolute Lymphocyte Count 2.39 X10^3/uL (0.83-4.51); Absolute Neutrophil Count 5.1 X10^3/uL (2.0-7.7); Basophil# 0.04 X10^3/uL; Basophil% 0.5 % (0-1); Eosinophil# 0.25 X10^3/uL; Eosinophils% 2.9 % (0-5); Hemoglobin 10.2 g/dL (13.0-16.5); Lymphocyte # 2.39 X10^3/ul (0.83-4.51); Lymphocyte % 27.7 % (19-41); Mean Corp Hgb Conc 28.3 g/dL (32-36); Mean Corpuscular Hgb 23.7 pg (27.0-32.0); Mean Corpuscular Volume 83.5 fL (80-94); Mean Platelet Vol. 9.6 fl (6.2-12.0); Monocyte# 0.73 X10^3/uL; Monocyte% 8.5 % (0-10); NRBC Flagged by Analyzer 0 % (0-5); Neutrophil # 5.12 X10^3/uL (2.7-7.7); Neutrophil % 59.4 % (47-70); Platelet Count 347 K/mm3 (150-450); RBC Distribution Width CV 16.4 % (11.6-14.6); RBC Distribution Width SD 50.1 fl (35.1-43.9); Red Blood Count 4.31 M/mm3 (4.6-6.2); White Blood Count 8.6 K/mm3 (4.4-11.0)
[2024-09-10 09:55] LABS: Anion Gap 11 (5-15); BUN 18 mg/dL (4-19); BUN/Creat Ratio 29.2 RATIO (10-20); Calcium,Total 8.8 mg/dL (7.6-11.0); Carbon Dioxide 30.9 mmol/L (21.0-32.0); Chloride 97 mmol/L (98-108); Creatinine, Serum 0.61 mg/dL (0.70-1.20); EST Glomerular Filtration Rate 112 (>60); Glucose 273 mg/dL (70-99); Potassium 4.3 mmol/L (3.3-5.1); Sodium Level 138 mmol/L (133-145)
== END | disposition home or self-care (01) ==
LOC: OLS.WHLEAS 04:00
PROVIDERS: PCP Internal Medicine; Referring Provider Internal Medicine; Visit Provider Internal Medicine
DX: E11.9 Type 2 diabetes mellitus without complications (principal)
CPT/HCPCS: 36415; 80048; 85025

== ENCOUNTER → 2024-09-17 | Outpatient (REF) | payer MEDICAID, SELFPAY ==
[2024-09-17 08:45] LABS: Absolute Lymphocyte Count 3.13 X10^3/uL (0.83-4.51); Absolute Neutrophil Count 4.6 X10^3/uL (2.0-7.7); Basophil# 0.07 X10^3/uL; Basophil% 0.8 % (0-1); Eosinophil# 0.25 X10^3/uL; Eosinophils% 2.8 % (0-5); Hematocrit 30.7 % (40-54); Hemoglobin 11.5 g/dL (13.0-16.5); Lymphocyte # 3.13 X10^3/ul (0.83-4.51); Lymphocyte % 35.6 % (19-41); Mean Corp Hgb Conc 37.5 g/dL (32-36); Mean Corpuscular Hgb 34.1 pg (27.0-32.0); Mean Corpuscular Volume 91.1 fL (80-94); Mean Platelet Vol. 10.5 fl (6.2-12.0); Monocyte# 0.71 X10^3/uL; Monocyte% 8.1 % (0-10); NRBC Flagged by Analyzer 0 % (0-5); Neutrophil # 4.58 X10^3/uL (2.7-7.7); POSITIVE COUNT YES; Platelet Count 274 K/mm3 (150-450); RBC Distribution Width CV 16.9 % (11.6-14.6); RBC Distribution Width SD 47.4 fl (35.1-43.9); Red Blood Count 3.37 M/mm3 (4.6-6.2); White Blood Count 8.8 K/mm3 (4.4-11.0)
[2024-09-17 09:01] LABS: Differential Indicated SCAN CRITERIA MET
[2024-09-17 09:12] LABS: Anion Gap 14 (5-15); BUN 18 mg/dL (4-19); BUN/Creat Ratio 22.4 RATIO (10-20); Calcium,Total 8.9 mg/dL (7.6-11.0); Carbon Dioxide 21.8 mmol/L (21.0-32.0); Chloride 98 mmol/L (98-108); Creatinine, Serum 0.78 mg/dL (0.70-1.20); EST Glomerular Filtration Rate 104 (>60); Glucose 187 mg/dL (70-99); Potassium 4.4 mmol/L (3.3-5.1); Sodium Level 134 mmol/L (133-145)
[2024-09-17 11:11] LABS: Platelet Estimate A (ADEQ); Polychromasia 1+
== END | disposition home or self-care (01) ==
LOC: OLS.WHLEAS 05:00
PROVIDERS: PCP Internal Medicine; Visit Provider Internal Medicine
DX: E11.9 Type 2 diabetes mellitus without complications (principal)
CPT/HCPCS: 36415; 80048; 85025

== ENCOUNTER → 2024-09-24 | Outpatient (REF) | payer MEDICAID, SELFPAY ==
[2024-09-24 10:10] LABS: Absolute Lymphocyte Count 2.53 X10^3/uL (0.83-4.51); Absolute Neutrophil Count 5.4 X10^3/uL (2.0-7.7); Basophil# 0.06 X10^3/uL; Basophil% 0.6 % (0-1); Eosinophil# 0.34 X10^3/uL; Eosinophils% 3.7 % (0-5); Hematocrit 39.3 % (40-54); Hemoglobin 11.1 g/dL (13.0-16.5); Lymphocyte # 2.53 X10^3/ul (0.83-4.51); Lymphocyte % 27.3 % (19-41); Mean Corp Hgb Conc 28.2 g/dL (32-36); Mean Corpuscular Hgb 23.6 pg (27.0-32.0); Mean Corpuscular Volume 83.4 fL (80-94); Mean Platelet Vol. 9.8 fl (6.2-12.0); Monocyte# 0.84 X10^3/uL; Monocyte% 9.1 % (0-10); NRBC Flagged by Analyzer 0 % (0-5); Neutrophil # 5.44 X10^3/uL (2.7-7.7); Neutrophil % 58.8 % (47-70); Platelet Count 374 K/mm3 (150-450); RBC Distribution Width CV 17.7 % (11.6-14.6); RBC Distribution Width SD 52.9 fl (35.1-43.9); Red Blood Count 4.71 M/mm3 (4.6-6.2); White Blood Count 9.3 K/mm3 (4.4-11.0)
[2024-09-24 10:28] LABS: Anion Gap 11 (5-15); BUN 17 mg/dL (4-19); BUN/Creat Ratio 23.7 RATIO (10-20); Calcium,Total 8.9 mg/dL (7.6-11.0); Carbon Dioxide 28.8 mmol/L (21.0-32.0); Chloride 99 mmol/L (98-108); Creatinine, Serum 0.73 mg/dL (0.70-1.20); EST Glomerular Filtration Rate 106 (>60); Glucose 192 mg/dL (70-99); Potassium 4.2 mmol/L (3.3-5.1); Sodium Level 139 mmol/L (133-145)
== END | disposition home or self-care (01) ==
LOC: OLS.WHLEAS 05:00
PROVIDERS: PCP Internal Medicine; Visit Provider Internal Medicine
DX: E11.9 Type 2 diabetes mellitus without complications (principal)
CPT/HCPCS: 36415; 80048; 85025

== ENCOUNTER 2024-09-28 09:00 | Outpatient (RCR) | payer MEDICAID, SELFPAY ==
[2024-09-13 00:26] VITALS: BP 141/73; PULSE 108; RESP 16; TEMP 36.1; O2SAT 96; BMI 43.3
[2024-09-14 08:52] VITALS: BP 146/73; PULSE 103; RESP 18; TEMP 36.6; BMI 43.3
--- NOTE | 2024-09-14 11:08 | PCM.WC.PN ---
History of Present Illness Date of Service: 09/14/24 Chief Complaint: sacral decubitus ulcer History of Wound: Jani is a pleasant 59 yo gentleman that has undergone an unfortunate series of events over the last several years which has left him paraplegic and with a sacral decubitus ulcer and residing in [facility]. He has been referred to the wound center for evaluation and treatment of his sacral ulcer. He has had a long history of degenerative disc disease of his spine and underwent spine surgery in August 2016 initially and then again in February 2017 due to osteomyelitis and infection of hardware. He underwent further surgery for fusion in December of 2020. He fell in November of 2022 getting up from his chair and then experienced worsening pain, weakness in his legs and ultimately became paraplegic from the waist down. He underwent surgery in [place] in January 2023 at [facility] [place] and then had several complications including pneumonia, pulmonary embolisms and a sacral ulcer that developed into a large defect after multiple surgical debridements and osteomyelitis of his sacrum while at [facility] through the first part 2023 and then attempted to come home to be cared for by his elderly mother which was not successful and he was hospitalized and discharged to [facility] where he has been residing and continues to reside. He has undergone many different treatments for his sacral ulcer including wound vac, silver dressings and Dakins and does have an air mattress but it is not an alternating pressure air mattress. The staff does try to offload his ulcer with wedges and pillows but it is difficult due to his chronic back pain. He is currently having the wound dressed with Dakins wet to dry and super absorber dressings twice daily. he reports being on chronic antibiotic treatment and IV treatment over the past year and states that he had MRI that showed resolution of osteomyelitis. (Records unavailable). He currently does not have any symptoms of systemic infection or localized infection. Denies fever, chills, nausea. Subjective Subjective Jani returns today for evaluation and treatment of a sacral decubitus ulcer. He has been tolerating dressing changes with Dakins and super absorber dressings. His wound culture came back with multiple bacteria anaerobic and aerobic including VRE. He is tolerating antibiotic treatment. Denies fever, chills, erythema. Objective Data Objective Data Vital Signs: Vital Signs Temp Pulse Resp BP Pulse Ox O2 Del Method O2 Flow Rate 97.8 F 103 H 18 146/73 H 96 Room Air 2 09/14/24 08:52 09/14/24 08:52 09/14/24 08:52 09/14/24 08:52 09/13/24 00:26 09/14/24 08:52 09/13/24 00:26 Oxygen Flow Rate (L/min) 2 Oxygen Delivery Method Room Air Weight: 141.067 kg Body Mass Index (BMI) 43.3 Physical Exam Const alert, oriented x3, no apparent distress and well nourished Constitutional Narrative: Morbidly obese, middle-aged, white male, sitting up in bed, appears comfortable and nontoxic General Appearance: cooperative and comfortable Nutritional Appearance: morbidly obese HEENT head/scalp atraumatic and moist oral mucous membranes Resp normal respiratory effort, no retractions, no use of accessory muscles and clear to auscultation bilaterally Resp Narrative: Distant due to body habitus Cardio regular rate, regular rhythm, S1 normal heart sound, S2 normal heart sound, no murmurs, no rub, no gallops and no clicks GI normal to inspection, nondistended, normoactive bowel sounds, soft to palpation and non-tender GI Narrative: colostomy present Extremity Extremity Narrative: Chronic bilateral lower extremity edema due to history of paraplegia and lack of movement, no cyanosis or clubbing General Extremity: edema bilateral lower extremity Details: moderate Skin Wounds: wounds noted Wound Narrative: as noted in clinical panel - large sacral ulcer and right ischial ulcer, no visible bone, shearing injury of left ischial area, area is irregular with fringe like skin in areas from repetitive shearing and pressure Neuro oriented x3, CN's II-XII intact bilaterally, No moves all extremities, No no focal motor deficits and No no sensory deficits noted Neuro Narrative: Bilateral lower extremity flaccidity due to history of L1 injury Speech: speech normal Psych affect normal Psych Narrative: Very pleasant, interacts appropriately Debridement Note Debridement Note Wound debrided: left ischium Laterality: Left Wound Grade/Stage: Stage 2 Anesthesia Used: 4% Lidocaine Solution Depth: Down to and including healthy tissue and in the subcutaneous layer Percentage of wound debrided: 100 Instrument Used: 7mm curette Tissue Removed: Yellow slough, devitalized tissue Severity: Limited To Skin Breakdown Amount of bleeding with debridement: None Patient tolerated procedure: Patient tolerated procedure well Post-Debridement Measurements and Additional Note: Post-Debridement Measurements/Treatment - Nurse 1 - General Ulcer Assessment Start: 09/14/24 08:52 Freq: Status: Active Protocol: ELENA Activity Type Activity Date Activity User E-sign Co-sign Detail Recorded Client Recorded Date Recorded By Document 09/14/24 08:52 KW [id number] 09/14/24 09:10 09/14/24 08:52 - Today's Visit Information Type of service Follow-up Visit (Physician/HOSIERY PAIRER ) Arrival Mode Wheelchair Transfer Assistance Kelli Lift Patient Identification Verified (Name & Yes ) Height and Weight Body Mass Index (BMI) 43.3 BMI Classification Obese Vital Signs Temperature (97.8 F-99.1 F) 97.8 F Temperature Source Temporal Pulse Rate (60-100) 103 H Pulse Location Monitor Respiratory Rate (12-18) 18 Respiratory rate source Observation Oxygen Delivery Method Room Air Blood Pressure (90/60-120/80) 146/73 H Blood Pressure Mean (mm Hg) 97 Source Monitor Position Sitting Blood Pressure Location Left Forearm History Since Last Visit- (Skip if this is Patient's initial visit) Have you changed medications since your No last visit? Any new allergies or adverse reactions No Had a fall/change in ADL's that may No increase risk of falls Signs or symptoms of abuse and/or No neglect since last visit Have you been in the hospital since your No last visit? Has dressing in place as prescribed Yes Has compression in place as prescribed Yes Has offloadiing in place as prescribed N/A Experienced any changes in pain level or No management Left Footwear No Footwear Right Footwear No Footwear Pain Scale: 0-10 Numeric Is Patient Pain Free? Yes - Nurse 1 - General Ulcer Measurement Start: 09/14/24 08:52 Freq: Status: Active Protocol: Activity Type Activity Date Activity User E-sign Co-sign Detail Recorded Client Recorded Date Recorded By Document 09/14/24 08:52 CLOVER [id number] 09/14/24 09:10 09/14/24 08:52 Wound Center Nurse 1 scrotum -Combined with other wound No -Current Size (cm) - Length 1 -Current Size (cm) - Width 0.5 -Current Size (cm) - Depth 0.1 -Total Square Cm 0.5 -Photo Taken Yes -Tunneling No -Undermining/Tunneling No -Circular Undermining No -Exudate Amt Large -Exudate Type Serosanguineous -Wound Margin Thickened -Granulation Amt Medium (34-66%) -Granulation Quality Harvey -Slough/Fibrin Yes -Necrosis Amt Medium (34-66%) -Necrotic Tissue Type Adherent Slough -Structure Exposed N/A -Texture (Trish-wound Skin Appearance) Assessed, Excoriation -Moisture (Trish-wound Skin Appearance) Assessed -Color (Trish-wound Skin Appearance) Assessed -Temperature (Trish-wound Skin No Abnormality Appearance) (Pt Warm) -Tenderness on Palpation (Trish-wound No Skin Appearance) -Ulcer Cleansing Wound Cleanser -Foul Odor after Cleansing No -Anesthetic Used 4% Lidocaine Solution 3. R ischium -Combined with other wound No -Current Size (cm) - Length 8.5 -Current Size (cm) - Width 5 -Current Size (cm) - Depth 0.1 -Total Square Cm 42.5 -Photo Taken Yes -Tunneling No -Undermining/Tunneling No -Circular Undermining No -Exudate Amt Large -Exudate Type Serosanguineous -Wound Margin Distinct, Outline Attached -Granulation Amt Medium (34-66%) -Granulation Quality Harvey -Slough/Fibrin Yes -Necrosis Amt Small (1-33%) -Necrotic Tissue Type Adherent Slough -Structure Exposed N/A -Texture (Trish-wound Skin Appearance) Assessed, Excoriation -Moisture (Trish-wound Skin Appearance) Assessed -Color (Trish-wound Skin Appearance) Assessed -Temperature (Trish-wound Skin No Abnormality Appearance) (Pt Warm) -Tenderness on Palpation (Trish-wound No Skin Appearance) -Ulcer Cleansing Rinsed/ Irrigated with Saline -Foul Odor after Cleansing No -Anesthetic Used 4% Lidocaine Solution 2. L ischium -Combined with other wound No -Current Size (cm) - Length 2 -Current Size (cm) - Width 3.5 -Current Size (cm) - Depth 0.1 -Total Square Cm 7.0 -Photo Taken Yes -Tunneling No -Undermining/Tunneling No -Circular Undermining No -Exudate Amt Large -Exudate Type Serosanguineous -Wound Margin Distinct, Outline Attached -Granulation Amt Medium (34-66%) -Granulation Quality Harvey -Slough/Fibrin Yes -Necrosis Amt Small (1-33%) -Necrotic Tissue Type Adherent Slough -Structure Exposed N/A -Texture (Trish-wound Skin Appearance) Assessed, Excoriation -Moisture (Trish-wound Skin Appearance) Assessed -Color (Trish-wound Skin Appearance) Assessed -Temperature (Trish-wound Skin No Abnormality Appearance) (Pt Warm) -Tenderness on Palpation (Trish-wound No Skin Appearance) -Ulcer Cleansing Rinsed/ Irrigated with Saline -Foul Odor after Cleansing No -Anesthetic Used 4% Lidocaine Solution *1. coccyx -Combined with other wound No -Current Size (cm) - Length 17 -Current Size (cm) - Width 15 -Current Size (cm) - Depth 0.2 -Total Square Cm 255 -Photo Taken Yes -Tunneling No -Undermining/Tunneling No -Circular Undermining No -Exudate Amt Large -Exudate Type Serosanguineous -Wound Margin Distinct, Outline Attached -Granulation Amt Medium (34-66%) -Granulation Quality Harvey -Slough/Fibrin Yes -Necrosis Amt Medium (34-66%) -Necrotic Tissue Type Adherent Slough -Structure Exposed N/A -Texture (Trish-wound Skin Appearance) Assessed, Excoriation -Moisture (Trish-wound Skin Appearance) Assessed -Color (Trish-wound Skin Appearance) Assessed -Temperature (Trish-wound Skin No Abnormality Appearance) (Pt Warm) -Tenderness on Palpation (Trish-wound No Skin Appearance) -Ulcer Cleansing Rinsed/ Irrigated with Saline -Foul Odor after Cleansing No -Anesthetic Used 4% Lidocaine Solution WC - Nurse 2 - General Ulcer CM Notes Start: 09/14/24 08:52 Freq: Status: Active Protocol: Activity Type Activity Date Activity User E-sign Co-sign Detail Recorded Client Recorded Date Recorded By Document 09/14/24 09:17 [id number] 09/14/24 09:48 09/14/24 09:17 Wound Center Nurse 2 scrotum -Time 09:35 -Correct Patient Yes -Correct Side, Site, Position Yes -Correct Procedure No -Procedure Performed No -Post Debridement (cm) - Length 3.0 -Post Debridement (cm) - Width 1.0 -Post Debridement (cm) - Depth 0.1 -Total Square (Post) (cm) 3.00 -Tunneling No -Undermining/Tunneling No -Circular Undermining No -Wound/Ulcer Outcome Not Healed -Ulcer Cleansing Rinsed/ Irrigated with Saline -Foul Odor after Cleansing No -Bioengineered Tissue No -Bleeding Controlled with NA -Assistive Device(s) Wheelchair -Pressure Reduction Wheelchair cushion 3. R ischium -Time 09:20 -Correct Patient Yes -Correct Side, Site, Position Yes -Correct Procedure Yes -Procedure Performed Yes -Type of Procedure Debridement -Clinical Debridement Muscle / Fascia -Tissue Removed Muscle -Post Debridement (cm) - Length 8.4 -Post Debridement (cm) - Width 4.8 -Post Debridement (cm) - Depth 0.1 -Total Square (Post) (cm) 40.32 -Area of Debridement (cm) - Length 8.4 -Area of Debridement (cm) - Width 4.8 -Total Square (Area) (cm) 40.32 -Tunneling No -Undermining/Tunneling No -Circular Undermining No -Wound/Ulcer Outcome Not Healed -Ulcer Cleansing Rinsed/ Irrigated with Saline -Foul Odor after Cleansing No -Bioengineered Tissue No -Bleeding Controlled with Pressure,Silver Nitrate ($) -Treatment Response Procedure Tolerated Well -Offloading No -Assistive Device(s) Wheelchair -Pressure Reduction Wheelchair cushion -Debridement - Muscle / Fascia, 1st No 20sq cm 2. L ischium -Time 09:20 -Correct Patient Yes -Correct Side, Site, Position Yes -Correct Procedure Yes -Procedure Performed Yes -Type of Procedure Debridement -Clinical Debridement Subcutaneous -Tissue Removed Subcutaneous -Post Debridement (cm) - Length 2.0 -Post Debridement (cm) - Width 2.5 -Post Debridement (cm) - Depth 0.1 -Total Square (Post) (cm) 5.00 -Area of Debridement (cm) - Length 2.0 -Area of Debridement (cm) - Width 2.5 -Total Square (Area) (cm) 5.00 -Tunneling No -Undermining/Tunneling No -Circular Undermining No -Wound/Ulcer Outcome Not Healed -Ulcer Cleansing Rinsed/ Irrigated with Saline -Foul Odor after Cleansing No -Bioengineered Tissue No -Bleeding Controlled with Pressure -Treatment Response Procedure Tolerated Well -Offloading No -Debridement - Subq, 1st 20sq cm Yes *1. coccyx -Time 09:20 -Correct Patient Yes -Correct Side, Site, Position Yes -Correct Procedure Yes -Procedure Performed Yes -Type of Procedure Debridement -Clinical Debridement Muscle / Fascia -Tissue Removed Muscle -Post Debridement (cm) - Length 16.0 -Post Debridement (cm) - Width 15.5 -Post Debridement (cm) - Depth 0.1 -Total Square (Post) (cm) 248.00 -Area of Debridement (cm) - Length 16.0 -Area of Debridement (cm) - Width 15.5 -Total Square (Area) (cm) 248.00 -Tunneling No -Undermining/Tunneling No -Circular Undermining No -Wound/Ulcer Outcome Not Healed -Ulcer Cleansing Rinsed/ Irrigated with Saline -Foul Odor after Cleansing No -Bioengineered Tissue No -Bleeding Controlled with Pressure -Offloading No -Assistive Device(s) Wheelchair -Pressure Reduction Wheelchair cushion -Debridement - Muscle / Fascia, 1st Yes 20sq cm -Debridement, Muscle/Fascia, ea addt'l 14 20sq cm or part thereof Pain Scale: 0-10 Numeric Is Patient Pain Free? Yes - Nurse 3 - General Ulcer D/C NN Start: 09/14/24 08:52 Freq: Status: Active Protocol: Activity Type Activity Date Activity User E-sign Co-sign Detail Recorded Client Recorded Date Recorded By Document 09/14/24 10:40 RB [id number] 09/14/24 10:42 RB 09/14/24 10:40 Wound Care Center Nurse 3 scrotum -Ulcer Cleansing Rinsed/ Irrigated with Saline -Primary Dressing Applied Aquacel Extra -Other Dressing abd -Primary Dressing Covered/Secured with Dry Gauze, Secured with Tape -Aquacel Extra 1 3. R ischium -Primary Dressing Applied Optilok 6.5x10 -Other Dressing dakins gauze -Primary Dressing Covered/Secured with Secured with Tape -Optilok 6.5x10 1 2. L ischium -Other Dressing dakins moistened gauze -Primary Dressing Covered/Secured with Dry Gauze, Secured with Tape *1. coccyx -Other Dressing dakins moistened gauze / superabsorber -Primary Dressing Covered/Secured with Dry Gauze, Secured with Tape Treatment Response Procedure Tolerated Well Pain Scale: 0-10 Numeric Is Patient Pain Free? Yes WC - Visit Discharge Discharge Condition Stable Ambulatory Status Wheelchair Transportation NH Medication Reconcilliation completed & No provided to patient/care provider Clinical Summary of Care Provided Yes Notes: kelli lift assit x 4 Additional Wound Wound debrided: right ischium Laterality: Right Wound Grade/Stage: Stage III Type of Debridement: Excisional debridement Anesthesia Used: 4% Lidocaine Solution Depth: Down to and including healthy tissue and in the subcutaneous layer Percentage of wound debrided: 100 Instrument Used: 7mm curette Tissue Removed: Yellow slough, devitalized tissue Severity: Fat Layer Exposed Amount of bleeding with debridement: Moderate Bleeding Controlled with: Compression and gauze, Silver Nitrate and - (2-0 nylon suture - 3 simple interrupted sutures) Patient tolerated procedure: Patient tolerated procedure well Additional Wound Wound debrided: coccyx Laterality: Not Applicable Wound Grade/Stage: Stage IV Type of Debridement: Excisional debridement Anesthesia Used: 4% Lidocaine Solution Depth: Down to and including healthy tissue, in the subcutaneous layer and to muscle Percentage of wound debrided: 100 Instrument Used: 7mm curette Tissue Removed: Yellow slough, devitalized tissue Severity: Necrosis of Muscle Amount of bleeding with debridement: Moderate Bleeding Controlled with: Compression and gauze Patient tolerated procedure: Patient tolerated procedure well Assessment/Plan Assessment/Plan (1) Chronic pain: CODE(S): G89.29 - Other chronic pain QUALIFIERS: Chronic pain type: chronic pain syndrome Qualified Code(s): G89.4 - Chronic pain syndrome (2) Hypoxia: CODE(S): R09.02 - Hypoxemia (3) History of paraplegia: CODE(S): Z86.69 - Personal history of other diseases of the nervous system and sense organs (4) Chronic indwelling Campbell catheter: CODE(S): Z97.8 - Presence of other specified devices (5) Type 2 diabetes mellitus: CODE(S): E11.9 - Type 2 diabetes mellitus without complications QUALIFIERS: Diabetes mellitus residential insulin use: without residential use Diabetes mellitus complication status: with neurologic complications Diabetes mellitus complication detail: with polyneuropathy Qualified Code(s): E11.42 - Type 2 diabetes mellitus with diabetic polyneuropathy (6) Chronic anticoagulation: CODE(S): Z79.01 - [facility] (current) use of anticoagulants (7) History of deep vein thrombosis: CODE(S): Z86.718 - Personal history of other venous thrombosis and embolism (8) Decubitus ulcer of sacral region, stage 4: CODE(S): L89.154 - Pressure ulcer of sacral region, stage 4 (9) Decubitus ulcer of left perineal ischial region, stage 2: CODE(S): L89.322 - Pressure ulcer of left buttock, stage 2 (10) Hx of spinal surgery: CODE(S): Z98.890 - Other specified postprocedural states (11) Colostomy status: CODE(S): Z93.3 - Colostomy status (12) HTN (hypertension): CODE(S): I10 - Essential (primary) hypertension QUALIFIERS: Hypertension type: primary hypertension Qualified Code(s): I10 - Essential (primary) hypertension (13) BATOOL treated with BiPAP: CODE(S): G47.33 - Obstructive sleep apnea (adult) (pediatric) (14) Lymphedema: CODE(S): I89.0 - Lymphedema, not elsewhere classified (15) Decubitus ulcer of right ischium, stage 3: CODE(S): L89.313 - Pressure ulcer of right buttock, stage 3 PLAN: Plan Debridement performed today in clinic as annotated above. At home wound-care instructions: The patient's ulcers will be washed with antibacterial soap and water and then will use Dakins wet to dry to wound bed and cover with gauze and superabsorber for heavy drainage twice daily. Keep dressing clean and dry. Off-loading: The patient was instructed to avoid pressure and friction on the affected areas. Reposition every 2 hours at minimum. Avoid prolonged standing and/or dangling of legs. When seated, feet should be elevated at chest level. Continue air mattress. Will write order for an alternating pressure air mattress to assist in offloading pressure. Diet: Patient encouraged to increase protein intake while taking caution to avoid high carbohydrate and/or sugar intake. He is getting [place] protein supplement at [facility]. Labs/cultures/imaging: Will obtain previous imaging results. Most recent A1C 7.9% on 07/23/24. Wound culture showed multiple bacteria and he was started on Flagyl and Cefdinir. Follow-up: Return in 1 week for wound care follow up. Return sooner or report to the emergency room should symptoms worsen, or new symptoms arise. Note: [employer] speech recognition salesperson pianos and organs software was used to create portions of this document. Sound-alike and misspelled words, as well as other salesperson pianos and organs errors may be contained in the documentation.
--- NOTE | 2024-09-17 14:34 | WC ---
PHOTO 09/14/24 SCROTUM
--- NOTE | 2024-09-17 14:36 | WC ---
PHOTO 09/14/24 ISCHIUM
--- NOTE | 2024-09-17 14:38 | WC ---
PHOTO 09/14/24 RIGHT ISCHIUM
--- NOTE | 2024-09-17 14:40 | WC ---
PHOTO 09/14/24 MAURO
[2024-09-21 09:17] VITALS: BP 135/75; PULSE 105; RESP 18; TEMP 36.3; BMI 43.3
--- NOTE | 2024-09-21 15:36 | PCM.WC.PN ---
History of Present Illness Date of Service: 09/21/24 Chief Complaint: sacral decubitus ulcer History of Wound: Jani is a pleasant 59 yo gentleman that has undergone an unfortunate series of events over the last several years which has left him paraplegic and with a sacral decubitus ulcer and residing in [facility]. He has been referred to the wound center for evaluation and treatment of his sacral ulcer. He has had a long history of degenerative disc disease of his spine and underwent spine surgery in August 2016 initially and then again in February 2017 due to osteomyelitis and infection of hardware. He underwent further surgery for fusion in December of 2020. He fell in November of 2022 getting up from his chair and then experienced worsening pain, weakness in his legs and ultimately became paraplegic from the waist down. He underwent surgery in [place] in January 2023 at [facility] and then had several complications including pneumonia, pulmonary embolisms and a sacral ulcer that developed into a large defect after multiple surgical debridements and osteomyelitis of his sacrum while at [facility] through the first part 2023 and then attempted to come home to be cared for by his elderly mother which was not successful and he was hospitalized and discharged to [facility] where he has been residing and continues to reside. He has undergone many different treatments for his sacral ulcer including wound vac, silver dressings and Dakins and does have an air mattress but it is not an alternating pressure air mattress. The staff does try to offload his ulcer with wedges and pillows but it is difficult due to his chronic back pain. He is currently having the wound dressed with Dakins wet to dry and super absorber dressings twice daily. he reports being on chronic antibiotic treatment and IV treatment over the past year and states that he had MRI that showed resolution of osteomyelitis. (Records unavailable). He currently does not have any symptoms of systemic infection or localized infection. Denies fever, chills, nausea. Subjective Subjective Jani returns today for evaluation and treatment of a sacral decubitus ulcer. He has been tolerating dressing changes with Dakins and super absorber dressings. His wound culture came back with multiple bacteria anaerobic and aerobic including VRE. He completed antibiotic treatment. Denies fever, chills, erythema. Objective Data Objective Data Vital Signs: Vital Signs Temp Pulse Resp BP Pulse Ox O2 Del Method O2 Flow Rate 97.4 F L 105 H 18 135/75 H 96 Room Air 2 09/21/24 09:17 09/21/24 09:17 09/21/24 09:17 09/21/24 09:17 09/13/24 00:26 09/14/24 08:52 09/13/24 00:26 Oxygen Flow Rate (L/min) 2 Oxygen Delivery Method Room Air Weight: 141.067 kg Body Mass Index (BMI) 43.3 Physical Exam Const alert, oriented x3, no apparent distress and well nourished Constitutional Narrative: Morbidly obese, middle-aged, white male, sitting up in bed, appears comfortable and nontoxic General Appearance: cooperative and comfortable Nutritional Appearance: morbidly obese HEENT head/scalp atraumatic and moist oral mucous membranes Resp normal respiratory effort, no retractions, no use of accessory muscles and clear to auscultation bilaterally Resp Narrative: Distant due to body habitus Cardio regular rate, regular rhythm, S1 normal heart sound, S2 normal heart sound, no murmurs, no rub, no gallops and no clicks GI normal to inspection, nondistended, normoactive bowel sounds, soft to palpation and non-tender GI Narrative: colostomy present Extremity Extremity Narrative: Chronic bilateral lower extremity edema due to history of paraplegia and lack of movement, no cyanosis or clubbing General Extremity: edema bilateral lower extremity Details: moderate Skin Wounds: wounds noted Wound Narrative: as noted in clinical panel - large sacral ulcer and right ischial ulcer, no visible bone, shearing injury of left ischial area, area is irregular with fringe like skin in areas from repetitive shearing and pressure Neuro oriented x3, CN's II-XII intact bilaterally, No moves all extremities, No no focal motor deficits and No no sensory deficits noted Neuro Narrative: Bilateral lower extremity flaccidity due to history of L1 injury Speech: speech normal Psych affect normal Psych Narrative: Very pleasant, interacts appropriately Debridement Note Debridement Note Wound debrided: left ischium Laterality: Left Wound Grade/Stage: Stage 2 Anesthesia Used: 4% Lidocaine Solution Depth: Down to and including healthy tissue and in the subcutaneous layer Percentage of wound debrided: 100 Instrument Used: 7mm curette Tissue Removed: Yellow slough, devitalized tissue Severity: Limited To Skin Breakdown Amount of bleeding with debridement: None Patient tolerated procedure: Patient tolerated procedure well Post-Debridement Measurements and Additional Note: Post-Debridement Measurements/Treatment - Nurse 1 - General Ulcer Assessment Start: 09/14/24 08:52 Freq: Status: Active Protocol: ELENA Activity Type Activity Date Activity User E-sign Co-sign Detail Recorded Client Recorded Date Recorded By Document 09/14/24 08:52 KW [id number] 09/14/24 09:10 KW Document 09/21/24 09:17 RB [id number] 09/21/24 09:22 RB 09/14/24 09/21/24 08:52 09:17 WC - Today's Visit Information Type of service Follow-up Visit Follow-up Visit (Physician/SECURITY AGENT (Physician/SECURITY AGENT ) ) Arrival Mode Wheelchair Wheelchair Transfer Assistance Kelli Lift Kelli Lift Patient Identification Verified (Name & Yes Yes ) Patient Requires Transmission-Based No Precautions Height and Weight Body Mass Index (BMI) 43.3 43.3 BMI Classification Obese Obese Vital Signs Temperature (97.8 F-99.1 F) 97.8 F 97.4 F L Temperature Source Temporal Temporal Pulse Rate (60-100) 103 H 105 H Pulse Location Monitor Monitor Respiratory Rate (12-18) 18 18 Respiratory rate source Observation Observation Oxygen Delivery Method Room Air Blood Pressure (90/60-120/80) 146/73 H 135/75 H Blood Pressure Mean (mm Hg) 97 95 Source Monitor Monitor Position Sitting Semi-Fowlers Blood Pressure Location Left Forearm Left Arm History Since Last Visit- (Skip if this is Patient's initial visit) Have you changed medications since your No No last visit? Any new allergies or adverse reactions No No Had a fall/change in ADL's that may No No increase risk of falls Signs or symptoms of abuse and/or No No neglect since last visit Have you been in the hospital since your No No last visit? Has dressing in place as prescribed Yes Yes Has compression in place as prescribed Yes N/A Has offloadiing in place as prescribed N/A Yes Experienced any changes in pain level or No No management Left Footwear No Footwear Right Footwear No Footwear Pain Scale: 0-10 Numeric Is Patient Pain Free? Yes Yes BONITA - Nurse 1 - General Ulcer Measurement Start: 09/14/24 08:52 Freq: Status: Active Protocol: Activity Type Activity Date Activity User E-sign Co-sign Detail Recorded Client Recorded Date Recorded By Document 09/14/24 08:52 KW [id number] 09/14/24 09:10 KW Document 09/21/24 09:17 RB [id number] 09/21/24 09:22 RB 09/14/24 09/21/24 08:52 09:17 Wound Center Nurse 1 scrotum -Combined with other wound No No -Current Size (cm) - Length 1 2 -Current Size (cm) - Width 0.5 0.5 -Current Size (cm) - Depth 0.1 0.1 -Total Square Cm 0.5 1.0 -Photo Taken Yes Yes -Tunneling No No -Undermining/Tunneling No No -Circular Undermining No No -Exudate Amt Large Medium -Exudate Type Serosanguineous Serosanguineous -Wound Margin Thickened Thickened -Granulation Amt Medium (34-66%) Medium (34-66%) -Granulation Quality Gro[place] Gro[place] -Slough/Fibrin Yes Yes -Necrosis Amt Medium (34-66%) Medium (34-66%) -Necrotic Tissue Type Adherent Slough Adherent Slough -Structure Exposed N/A N/A -Texture (Trish-wound Skin Appearance) Assessed, Excoriation Excoriation -Moisture (Trish-wound Skin Appearance) Assessed Assessed -Color (Trish-wound Skin Appearance) Assessed Assessed -Temperature (Trish-wound Skin No Abnormality No Abnormality Appearance) (Pt Warm) (Pt Warm) -Tenderness on Palpation (Trish-wound No No Skin Appearance) -Ulcer Cleansing Wound Cleanser Wound Cleanser -Foul Odor after Cleansing No No -Anesthetic Used 4% Lidocaine 4% Lidocaine Solution Solution 3. R ischium -Combined with other wound No No -Current Size (cm) - Length 8.5 8.5 -Current Size (cm) - Width 5 4.5 -Current Size (cm) - Depth 0.1 0.2 -Total Square Cm 42.5 38.25 -Photo Taken Yes Yes -Tunneling No No -Undermining/Tunneling No No -Circular Undermining No No -Exudate Amt Large Medium -Exudate Type Serosanguineous Serosanguineous -Wound Margin Distinct, Thickened Outline Attached -Granulation Amt Medium (34-66%) Medium (34-66%) -Granulation Quality Groton Groton -Slough/Fibrin Yes Yes -Necrosis Amt Small (1-33%) Small (1-33%) -Necrotic Tissue Type Adherent Slough Adherent Slough -Structure Exposed N/A N/A -Texture (Trish-wound Skin Appearance) Assessed, Assessed, Excoriation Excoriation -Moisture (Trish-wound Skin Appearance) Assessed Assessed -Color (Trish-wound Skin Appearance) Assessed Assessed -Temperature (Trish-wound Skin No Abnormality No Abnormality Appearance) (Pt Warm) (Pt Warm) -Tenderness on Palpation (Trish-wound No No Skin Appearance) -Ulcer Cleansing Rinsed/ Wound Cleanser Irrigated with Saline -Foul Odor after Cleansing No No -Anesthetic Used 4% Lidocaine 4% Lidocaine Solution Solution 2. L ischium -Combined with other wound No No -Current Size (cm) - Length 2 2.5 -Current Size (cm) - Width 3.5 1.5 -Current Size (cm) - Depth 0.1 0.1 -Total Square Cm 7.0 3.75 -Photo Taken Yes Yes -Tunneling No No -Undermining/Tunneling No No -Circular Undermining No No -Exudate Amt Large Medium -Exudate Type Serosanguineous Serosanguineous -Wound Margin Distinct, Thickened Outline Attached -Granulation Amt Medium (34-66%) Medium (34-66%) -Granulation Quality Gro[place] Groton -Slough/Fibrin Yes Yes -Necrosis Amt Small (1-33%) Small (1-33%) -Necrotic Tissue Type Adherent Slough Adherent Slough -Structure Exposed N/A N/A -Texture (Trish-wound Skin Appearance) Assessed, Assessed, Excoriation Excoriation -Moisture (Trish-wound Skin Appearance) Assessed Assessed -Color (Trish-wound Skin Appearance) Assessed Assessed -Temperature (Trish-wound Skin No Abnormality No Abnormality Appearance) (Pt Warm) (Pt Warm) -Tenderness on Palpation (Trish-wound No No Skin Appearance) -Ulcer Cleansing Rinsed/ Wound Cleanser Irrigated with Saline -Foul Odor after Cleansing No No -Anesthetic Used 4% Lidocaine 4% Lidocaine Solution Solution *1. coccyx -Combined with other wound No No -Current Size (cm) - Length 17 11 -Current Size (cm) - Width 15 15.5 -Current Size (cm) - Depth 0.2 0.1 -Total Square Cm 255 170.5 -Photo Taken Yes Yes -Tunneling No No -Undermining/Tunneling No No -Circular Undermining No No -Exudate Amt Large Large -Exudate Type Serosanguineous Serosanguineous -Wound Margin Distinct, Thickened Outline Attached -Granulation Amt Medium (34-66%) Medium (34-66%) -Granulation Quality Gro[place] Groton -Slough/Fibrin Yes Yes -Necrosis Amt Medium (34-66%) Small (1-33%) -Necrotic Tissue Type Adherent Slough Adherent Slough -Structure Exposed N/A N/A -Texture (Trish-wound Skin Appearance) Assessed, Assessed, Excoriation Excoriation -Moisture (Trish-wound Skin Appearance) Assessed Assessed -Color (Trish-wound Skin Appearance) Assessed Assessed -Temperature (Trish-wound Skin No Abnormality No Abnormality Appearance) (Pt Warm) (Pt Warm) -Tenderness on Palpation (Trish-wound No No Skin Appearance) -Ulcer Cleansing Rinsed/ Wound Cleanser Irrigated with Saline -Foul Odor after Cleansing No No -Anesthetic Used 4% Lidocaine 4% Lidocaine Solution Solution WC - Nurse 2 - General Ulcer CM Notes Start: 09/14/24 08:52 Freq: Status: Active Protocol: Activity Type Activity Date Activity User E-sign Co-sign Detail Recorded Client Recorded Date Recorded By Document 09/14/24 09:17 [id number] 09/14/24 09:48 Document 09/21/24 09:30 [id number] 09/21/24 09:52 09/14/24 09/21/24 09:17 09:30 Wound Center Nurse 2 scrotum -Time 09:35 09:42 -Correct Patient Yes Yes -Correct Side, Site, Position Yes Yes -Correct Procedure No No -Procedure Performed No No -Post Debridement (cm) - Length 3.0 -Post Debridement (cm) - Width 1.0 -Post Debridement (cm) - Depth 0.1 -Total Square (Post) (cm) 3.00 -Tunneling No No -Undermining/Tunneling No No -Circular Undermining No No -Wound/Ulcer Outcome Not Healed Healed- Epithelialized -Ulcer Cleansing Rinsed/ Not Cleansed Irrigated with Saline -Foul Odor after Cleansing No No -Bioengineered Tissue No No -Bleeding Controlled with NA NA -Assistive Device(s) Wheelchair -Pressure Reduction Wheelchair cushion 3. R ischium -Time 09:20 09:32 -Correct Patient Yes Yes -Correct Side, Site, Position Yes Yes -Correct Procedure Yes Yes -Procedure Performed Yes Yes -Type of Procedure Debridement Debridement -Clinical Debridement Muscle / Fascia Muscle / Fascia -Tissue Removed Muscle Muscle -Post Debridement (cm) - Length 8.4 9.0 -Post Debridement (cm) - Width 4.8 4.9 -Post Debridement (cm) - Depth 0.1 0.1 -Total Square (Post) (cm) 40.32 44.10 -Area of Debridement (cm) - Length 8.4 9.0 -Area of Debridement (cm) - Width 4.8 4.9 -Total Square (Area) (cm) 40.32 44.10 -Tunneling No No -Undermining/Tunneling No No -Circular Undermining No No -Wound/Ulcer Outcome Not Healed Not Healed -Ulcer Cleansing Rinsed/ Rinsed/ Irrigated with Irrigated with Saline Saline -Foul Odor after Cleansing No No -Bioengineered Tissue No No -Bleeding Controlled with Pressure,Silver Pressure Nitrate ($) -Treatment Response Procedure Procedure Tolerated Well Tolerated Well -Offloading No No -Assistive Device(s) Wheelchair -Pressure Reduction Wheelchair cushion -Debridement - Muscle / Fascia, 1st No No 20sq cm 2. L ischium -Time 09:20 09:34 -Correct Patient Yes Yes -Correct Side, Site, Position Yes Yes -Correct Procedure Yes Yes -Procedure Performed Yes Yes -Type of Procedure Debridement Debridement -Clinical Debridement Subcutaneous Subcutaneous -Tissue Removed Subcutaneous Subcutaneous -Post Debridement (cm) - Length 2.0 2.5 -Post Debridement (cm) - Width 2.5 2.5 -Post Debridement (cm) - Depth 0.1 0.1 -Total Square (Post) (cm) 5.00 6.25 -Area of Debridement (cm) - Length 2.0 2.5 -Area of Debridement (cm) - Width 2.5 2.0 -Total Square (Area) (cm) 5.00 5.00 -Tunneling No No -Undermining/Tunneling No No -Circular Undermining No No -Wound/Ulcer Outcome Not Healed Not Healed -Ulcer Cleansing Rinsed/ Rinsed/ Irrigated with Irrigated with Saline Saline -Foul Odor after Cleansing No No -Bioengineered Tissue No No -Bleeding Controlled with Pressure Pressure -Treatment Response Procedure Procedure Tolerated Well Tolerated Well -Offloading No No -Debridement - Subq, 1st 20sq cm Yes Yes *1. coccyx -Time 09:20 09:35 -Correct Patient Yes Yes -Correct Side, Site, Position Yes Yes -Correct Procedure Yes Yes -Procedure Performed Yes Yes -Type of Procedure Debridement Debridement -Clinical Debridement Muscle / Fascia Muscle / Fascia -Tissue Removed Muscle Muscle -Post Debridement (cm) - Length 16.0 15.0 -Post Debridement (cm) - Width 15.5 16.0 -Post Debridement (cm) - Depth 0.1 0.1 -Total Square (Post) (cm) 248.00 240.00 -Area of Debridement (cm) - Length 16.0 15 -Area of Debridement (cm) - Width 15.5 16 -Total Square (Area) (cm) 248.00 240 -Tunneling No No -Undermining/Tunneling No No -Circular Undermining No No -Wound/Ulcer Outcome Not Healed Not Healed -Ulcer Cleansing Rinsed/ Rinsed/ Irrigated with Irrigated with Saline Saline -Foul Odor after Cleansing No No -Bioengineered Tissue No No -Bleeding Controlled with Pressure Pressure -Treatment Response Procedure Tolerated Well -Offloading No No -Assistive Device(s) Wheelchair Wheelchair -Pressure Reduction Wheelchair Wheelchair cushion cushion -Debridement - Muscle / Fascia, 1st Yes Yes 20sq cm -Debridement, Muscle/Fascia, ea addt'l 14 14 20sq cm or part thereof Pain Scale: 0-10 Numeric Is Patient Pain Free? Yes Yes WC - Nurse 3 - General Ulcer D/C NN Start: 09/14/24 08:52 Freq: Status: Active Protocol: Activity Type Activity Date Activity User E-sign Co-sign Detail Recorded Client Recorded Date Recorded By Document 09/14/24 10:40 RB [id number] 09/14/24 10:42 RB Document 09/21/24 10:19 RB [id number] 09/21/24 10:21 RB 09/14/24 09/21/24 10:40 10:19 Wound Care Center Nurse 3 scrotum -Ulcer Cleansing Rinsed/ Irrigated with Saline -Primary Dressing Applied Aquacel Extra -Other Dressing abd dakins moistened gauze /ABD -Primary Dressing Covered/Secured with Dry Gauze, Dry Gauze, Secured with Secured with Tape Tape -Aquacel Extra 1 3. R ischium -Primary Dressing Applied Optilok 6.5x10 -Other Dressing dakins gauze dakins moistened gauze /ABD -Primary Dressing Covered/Secured with Secured with Dry Gauze, Tape Secured with Tape -Optilok 6.5x10 1 2. L ischium -Other Dressing dakins dakins moistened gauze moistened gauze / ABD -Primary Dressing Covered/Secured with Dry Gauze, Secured with Secured with Tape Tape *1. coccyx -Other Dressing dakins dakins moistened gauze moistened /ABD / superabsorber -Primary Dressing Covered/Secured with Dry Gauze, Secured with Secured with Tape Tape Treatment Response Procedure Procedure Tolerated Well Tolerated Well Pain Scale: 0-10 Numeric Is Patient Pain Free? Yes Yes WC - Visit Discharge Discharge Condition Stable Stable Ambulatory Status Wheelchair Wheelchair Transportation [facility] Medication Reconcilliation completed & No No provided to patient/care provider Clinical Summary of Care Provided Yes Yes Notes: kelli lift assit x 4 Additional Wound Wound debrided: right ischium Laterality: Right Wound Grade/Stage: Stage III Type of Debridement: Excisional debridement Anesthesia Used: 4% Lidocaine Solution Depth: Down to and including healthy tissue and in the subcutaneous layer Percentage of wound debrided: 100 Instrument Used: 7mm curette Tissue Removed: Yellow slough, devitalized tissue Severity: Fat Layer Exposed Amount of bleeding with debridement: Moderate Bleeding Controlled with: Compression and gauze, Silver Nitrate and - (2-0 nylon suture - 3 simple interrupted sutures) Patient tolerated procedure: Patient tolerated procedure well Additional Wound Wound debrided: coccyx Laterality: Not Applicable Wound Grade/Stage: Stage IV Type of Debridement: Excisional debridement Anesthesia Used: 4% Lidocaine Solution Depth: Down to and including healthy tissue, in the subcutaneous layer and to muscle Percentage of wound debrided: 100 Instrument Used: 7mm curette Tissue Removed: Yellow slough, devitalized tissue Severity: Necrosis of Muscle Amount of bleeding with debridement: Moderate Bleeding Controlled with: Compression and gauze Patient tolerated procedure: Patient tolerated procedure well Assessment/Plan Assessment/Plan (1) Chronic pain: CODE(S): G89.29 - Other chronic pain QUALIFIERS: Chronic pain type: chronic pain syndrome Qualified Code(s): G89.4 - Chronic pain syndrome (2) Hypoxia: CODE(S): R09.02 - Hypoxemia (3) History of paraplegia: CODE(S): Z86.69 - Personal history of other diseases of the nervous system and sense organs (4) Chronic indwelling Campbell catheter: CODE(S): Z97.8 - Presence of other specified devices (5) Type 2 diabetes mellitus: CODE(S): E11.9 - Type 2 diabetes mellitus without complications QUALIFIERS: Diabetes mellitus complication detail: with polyneuropathy Diabetes mellitus complication status: with neurologic complications Diabetes mellitus assisted insulin use: without predatory animal exterminator use Qualified Code(s): E11.42 - Type 2 diabetes mellitus with diabetic polyneuropathy (6) Chronic anticoagulation: CODE(S): Z79.01 - predatory animal exterminator (current) use of anticoagulants (7) History of deep vein thrombosis: CODE(S): Z86.718 - Personal history of other venous thrombosis and embolism (8) Decubitus ulcer of sacral region, stage 4: CODE(S): L89.154 - Pressure ulcer of sacral region, stage 4 (9) Decubitus ulcer of left perineal ischial region, stage 2: CODE(S): L89.322 - Pressure ulcer of left buttock, stage 2 (10) Hx of spinal surgery: CODE(S): Z98.890 - Other specified postprocedural states (11) Colostomy status: CODE(S): Z93.3 - Colostomy status (12) HTN (hypertension): CODE(S): I10 - Essential (primary) hypertension QUALIFIERS: Hypertension type: primary hypertension Qualified Code(s): I10 - Essential (primary) hypertension (13) BATOOL treated with BiPAP: CODE(S): G47.33 - Obstructive sleep apnea (adult) (pediatric) (14) Lymphedema: CODE(S): I89.0 - Lymphedema, not elsewhere classified (15) Decubitus ulcer of right ischium, stage 3: CODE(S): L89.313 - Pressure ulcer of right buttock, stage 3 PLAN: Plan Debridement performed today in clinic as annotated above. At home wound-care instructions: The patient's ulcers will be washed with antibacterial soap and water and then will use Dakins wet to dry to wound bed and cover with gauze and superabsorber for heavy drainage twice daily. Keep dressing clean and dry. Off-loading: The patient was instructed to avoid pressure and friction on the affected areas. Reposition every 2 hours at minimum. Avoid prolonged standing and/or dangling of legs. When seated, feet should be elevated at chest level. Continue air mattress. Will write order for an alternating pressure air mattress to assist in offloading pressure. Diet: Patient encouraged to increase protein intake while taking caution to avoid high carbohydrate and/or sugar intake. He is getting W[place] protein supplement at [facility]. Labs/cultures/imaging: Will obtain previous imaging results. Most recent A1C 7.9% on 07/23/24. Wound culture showed multiple bacteria and he was started on Flagyl and Cefdinir. Follow-up: Return in 1 week for wound care follow up. Return sooner or report to the emergency room should symptoms worsen, or new symptoms arise. Note: [employer] speech recognition bakery worker conveyor line software was used to create portions of this document. Sound-alike and misspelled words, as well as other bakery worker conveyor line errors may be contained in the documentation.
--- NOTE | 2024-09-24 12:01 | WC ---
PHOTO 09/21/24 RIGHT ISCHIUM
--- NOTE | 2024-09-24 12:02 | WC ---
PHOTO 09/21/24 MAURO
--- NOTE | 2024-09-24 12:03 | WC ---
PHOTO 09/21/24 SCROTUM
--- NOTE | 2024-09-24 12:04 | WC ---
PHOTO 09/21/24 LEFT ISCHIUM
[2024-09-28 09:20] VITALS: BP 136/70; PULSE 105; RESP 18; TEMP 36.3; BMI 43.3
--- NOTE | 2024-09-28 13:49 | PN.PCM_ITS ---
History of Present Illness Date of Service: 09/28/24 Chief Complaint: sacral decubitus ulcer History of Wound: Jani is a pleasant 59 yo gentleman that has undergone an unfortunate series of events over the last several years which has left him paraplegic and with a sacral decubitus ulcer and residing in [facility]. He has been referred to the wound center for evaluation and treatment of his sacral ulcer. He has had a long history of degenerative disc disease of his spine and underwent spine surgery in August 2016 initially and then again in February 2017 due to osteomyelitis and infection of hardware. He underwent further surgery for fusion in December of 2020. He fell in November of 2022 getting up from his chair and then experienced worsening pain, weakness in his legs and ultimately became paraplegic from the waist down. He underwent surgery in [place] in January 2023 at [facility] and then had several complications including pneumonia, pulmonary embolisms and a sacral ulcer that developed into a large defect after multiple surgical debridements and osteomyelitis of his sacrum while at [facility] through the first part 2023 and then attempted to come home to be cared for by his elderly mother which was not successful and he was hospitalized and discharged to [facility] where he has been residing and continues to reside. He has undergone many different treatments for his sacral ulcer including wound vac, silver dressings and Dakins and does have an air mattress but it is not an alternating pressure air mattress. The staff does try to offload his ulcer with wedges and pillows but it is difficult due to his chronic back pain. He is currently having the wound dressed with Dakins wet to dry and super absorber dressings twice daily. he reports being on chronic antibiotic treatment and IV treatment over the past year and states that he had MRI that showed resolution of osteomyelitis. (Records unavailable). He currently does not have any symptoms of systemic infection or localized infection. Denies fever, chills, nausea. Subjective Subjective Jani returns today for evaluation and treatment of a sacral decubitus ulcer. He has been tolerating dressing changes with Dakins and super absorber dressings. His wound culture came back with multiple bacteria anaerobic and aerobic including VRE. He completed antibiotic treatment. Denies fever, chills, erythema. Objective Data Objective Data Vital Signs: Vital Signs Temp Pulse Resp BP Pulse Ox O2 Del Method O2 Flow Rate 97.4 F L 105 H 18 136/70 H 96 Nasal Cannula 2 09/28/24 09:20 09/28/24 09:20 09/28/24 09:20 09/28/24 09:20 09/13/24 00:26 09/28/24 09:20 09/28/24 09:20 Oxygen Flow Rate (L/min) 2 Oxygen Delivery Method Nasal Cannula Weight: 141.067 kg Body Mass Index (BMI) 43.3 Physical Exam Const alert, oriented x3, no apparent distress and well nourished Constitutional Narrative: Morbidly obese, middle-aged, white male, sitting up in bed, appears comfortable and nontoxic General Appearance: cooperative and comfortable Nutritional Appearance: morbidly obese HEENT head/scalp atraumatic and moist oral mucous membranes Resp normal respiratory effort, no retractions, no use of accessory muscles and clear to auscultation bilaterally Resp Narrative: Distant due to body habitus Cardio regular rate, regular rhythm, S1 normal heart sound, S2 normal heart sound, no murmurs, no rub, no gallops and no clicks GI normal to inspection, nondistended, normoactive bowel sounds, soft to palpation and non-tender GI Narrative: colostomy present Extremity Extremity Narrative: Chronic bilateral lower extremity edema due to history of paraplegia and lack of movement, no cyanosis or clubbing General Extremity: edema bilateral lower extremity Details: moderate Skin Wounds: wounds noted Wound Narrative: as noted in clinical panel - large sacral ulcer and right ischial ulcer, no visible bone, shearing injury of left ischial area, area is irregular with fringe like skin in areas from repetitive shearing and pressure Neuro oriented x3, CN's II-XII intact bilaterally, No moves all extremities, No no focal motor deficits and No no sensory deficits noted Neuro Narrative: Bilateral lower extremity flaccidity due to history of L1 injury Speech: speech normal Psych affect normal Psych Narrative: Very pleasant, interacts appropriately Debridement Note Debridement Note Wound debrided: left ischium Laterality: Left Wound Grade/Stage: Stage 2 Anesthesia Used: 4% Lidocaine Solution Depth: Down to and including healthy tissue and in the subcutaneous layer Percentage of wound debrided: 100 Instrument Used: 5mm curette Tissue Removed: Yellow slough, devitalized tissue Severity: Fat Layer Exposed Amount of bleeding with debridement: None Bleeding Controlled with: Compression and gauze Patient tolerated procedure: Patient tolerated procedure well Post-Debridement Measurements and Additional Note: Post-Debridement Measurements/Treatment WC - Nurse 1 - General Ulcer Assessment Start: 09/14/24 08:52 Freq: Status: Active Protocol: ELENA Activity Type Activity Date Activity User E-sign Co-sign Detail Recorded Client Recorded Date Recorded By Document 09/14/24 08:52 KW [id number] 09/14/24 09:10 KW Document 09/21/24 09:17 RB [id number] 09/21/24 09:22 RB Document 09/28/24 09:20 KW [id number] 09/28/24 09:24 KW 09/14/24 09/21/24 09/28/24 08:52 09:17 09:20 WC - Today's Visit Information Type of service Follow-up Visit Follow-up Visit Follow-up Visit (Physician/RECTIFYING OPERATOR (Physician/RECTIFYING OPERATOR (Physician/RECTIFYING OPERATOR ) ) ) Arrival Mode Wheelchair Wheelchair Transfer Assistance Kelli Lift Kelli Lift Patient Identification Verified (Name & Yes Yes ) Patient Requires Transmission-Based No Precautions Height and Weight Body Mass Index (BMI) 43.3 43.3 43.3 BMI Classification Obese Obese Obese Vital Signs Temperature (97.8 F-99.1 F) 97.8 F 97.4 F L 97.4 F L Temperature Source Temporal Temporal Temporal Pulse Rate (60-100) 103 H 105 H 105 H Pulse Location Monitor Monitor Monitor Respiratory Rate (12-18) 18 18 18 Respiratory rate source Observation Observation Observation Oxygen Delivery Method Room Air Nasal Cannula O2 L/MIN (L/min) 2 Blood Pressure (90/60-120/80) 146/73 H 135/75 H 136/70 H Blood Pressure Mean (mm Hg) 97 95 92 Source Monitor Monitor Monitor Position Sitting Semi-Fowlers Semi-Fowlers Blood Pressure Location Left Forearm Left Arm Left Arm History Since Last Visit- (Skip if this is Patient's initial visit) Have you changed medications since your No No No last visit? Any new allergies or adverse reactions No No No Had a fall/change in ADL's that may No No No increase risk of falls Signs or symptoms of abuse and/or No No No neglect since last visit Have you been in the hospital since your No No No last visit? Has dressing in place as prescribed Yes Yes Yes Has compression in place as prescribed Yes N/A N/A Has offloadiing in place as prescribed N/A Yes N/A Experienced any changes in pain level or No No No management Left Footwear No Footwear No Footwear Right Footwear No Footwear No Footwear Pain Scale: 0-10 Numeric Is Patient Pain Free? Yes Yes Yes WC - Nurse 1 - General Ulcer Measurement Start: 09/14/24 08:52 Freq: Status: Active Protocol: Activity Type Activity Date Activity User E-sign Co-sign Detail Recorded Client Recorded Date Recorded By Document 09/14/24 08:52 KW [id number] 09/14/24 09:10 KW Document 09/21/24 09:17 RB [id number] 09/21/24 09:22 RB Document 09/28/24 09:20 KW [id number] 09/28/24 09:24 KW 09/14/24 09/21/24 09/28/24 08:52 09:17 09:20 Wound Center Nurse 1 scrotum -Combined with other wound No No -Current Size (cm) - Length 1 2 1 -Current Size (cm) - Width 0.5 0.5 1 -Current Size (cm) - Depth 0.1 0.1 0.2 -Total Square Cm 0.5 1.0 1 -Photo Taken Yes Yes -Tunneling No No -Undermining/Tunneling No No -Circular Undermining No No -Exudate Amt Large Medium -Exudate Type Serosanguineous Serosanguineous -Wound Margin Thickened Thickened Thickened -Granulation Amt Medium (34-66%) Medium (34-66%) Large (67-100%) -Granulation Quality [place] Crest [place]rest Red -Slough/Fibrin Yes Yes -Necrosis Amt Medium (34-66%) Medium (34-66%) -Necrotic Tissue Type Adherent Slough Adherent Slough -Structure Exposed N/A N/A -Texture (Trish-wound Skin Appearance) Assessed, Excoriation Assessed Excoriation -Moisture (Trish-wound Skin Appearance) Assessed Assessed Assessed -Color (Trish-wound Skin Appearance) Assessed Assessed Assessed -Temperature (Trish-wound Skin No Abnormality No Abnormality No Abnormality Appearance) (Pt Warm) (Pt Warm) (Pt Warm) -Tenderness on Palpation (Trish-wound No No No Skin Appearance) -Ulcer Cleansing Wound Cleanser Wound Cleanser Soap and Water -Foul Odor after Cleansing No No No -Anesthetic Used 4% Lidocaine 4% Lidocaine 4% Lidocaine Solution Solution Solution 3. R ischium -Combined with other wound No No -Current Size (cm) - Length 8.5 8.5 8 -Current Size (cm) - Width 5 4.5 4.2 -Current Size (cm) - Depth 0.1 0.2 0.1 -Total Square Cm 42.5 38.25 33.6 -Photo Taken Yes Yes -Tunneling No No -Undermining/Tunneling No No -Circular Undermining No No -Exudate Amt Large Medium Small -Exudate Type Serosanguineous Serosanguineous Serosanguineous -Wound Margin Distinct, Thickened Distinct, Outline Outline Attached Attached -Granulation Amt Medium (34-66%) Medium (34-66%) Large (67-100%) -Granulation Quality Pine Crest Pine Crest Red -Slough/Fibrin Yes Yes -Necrosis Amt Small (1-33%) Small (1-33%) -Necrotic Tissue Type Adherent Slough Adherent Slough -Structure Exposed N/A N/A -Texture (Trish-wound Skin Appearance) Assessed, Assessed, Assessed Excoriation Excoriation -Moisture (Trish-wound Skin Appearance) Assessed Assessed Assessed -Color (Trish-wound Skin Appearance) Assessed Assessed Assessed -Temperature (Trish-wound Skin No Abnormality No Abnormality No Abnormality Appearance) (Pt Warm) (Pt Warm) (Pt Warm) -Tenderness on Palpation (Trish-wound No No No Skin Appearance) -Ulcer Cleansing Rinsed/ Wound Cleanser Soap and Water Irrigated with Saline -Foul Odor after Cleansing No No No -Anesthetic Used 4% Lidocaine 4% Lidocaine 4% Lidocaine Solution Solution Solution 2. L ischium -Combined with other wound No No -Current Size (cm) - Length 2 2.5 0.6 -Current Size (cm) - Width 3.5 1.5 1.1 -Current Size (cm) - Depth 0.1 0.1 0.1 -Total Square Cm 7.0 3.75 0.66 -Photo Taken Yes Yes -Tunneling No No -Undermining/Tunneling No No -Circular Undermining No No -Exudate Amt Large Medium Large -Exudate Type Serosanguineous Serosanguineous Serosanguineous -Wound Margin Distinct, Thickened Thickened & Outline Rolled Under Attached -Granulation Amt Medium (34-66%) Medium (34-66%) Large (67-100%) -Granulation Quality Pine Crest Pine Crest Red -Slough/Fibrin Yes Yes -Necrosis Amt Small (1-33%) Small (1-33%) -Necrotic Tissue Type Adherent Slough Adherent Slough -Structure Exposed N/A N/A -Texture (Trish-wound Skin Appearance) Assessed, Assessed, Assessed Excoriation Excoriation -Moisture (Trish-wound Skin Appearance) Assessed Assessed Assessed -Color (Trish-wound Skin Appearance) Assessed Assessed Assessed -Temperature (Trish-wound Skin No Abnormality No Abnormality No Abnormality Appearance) (Pt Warm) (Pt Warm) (Pt Warm) -Tenderness on Palpation (Trish-wound No No No Skin Appearance) -Ulcer Cleansing Rinsed/ Wound Cleanser Soap and Water Irrigated with Saline -Foul Odor after Cleansing No No No -Anesthetic Used 4% Lidocaine 4% Lidocaine 4% Lidocaine Solution Solution Solution *1. coccyx -Combined with other wound No No -Current Size (cm) - Length 17 11 7 -Current Size (cm) - Width 15 15.5 15 -Current Size (cm) - Depth 0.2 0.1 0.3 -Total Square Cm 255 170.5 105 -Photo Taken Yes Yes -Tunneling No No -Undermining/Tunneling No No -Circular Undermining No No -Exudate Amt Large Large Large -Exudate Type Serosanguineous Serosanguineous Serosanguineous -Wound Margin Distinct, Thickened Distinct, Outline Outline Attached Attached -Granulation Amt Medium (34-66%) Medium (34-66%) Large (67-100%) -Granulation Quality Pine Crest Pine Crest Pine Crest,Red -Slough/Fibrin Yes Yes -Necrosis Amt Medium (34-66%) Small (1-33%) -Necrotic Tissue Type Adherent Slough Adherent Slough -Structure Exposed N/A N/A -Texture (Trish-wound Skin Appearance) Assessed, Assessed, Assessed Excoriation Excoriation -Moisture (Trish-wound Skin Appearance) Assessed Assessed Assessed -Color (Trish-wound Skin Appearance) Assessed Assessed Assessed -Temperature (Trish-wound Skin No Abnormality No Abnormality No Abnormality Appearance) (Pt Warm) (Pt Warm) (Pt Warm) -Tenderness on Palpation (Trish-wound No No No Skin Appearance) -Ulcer Cleansing Rinsed/ Wound Cleanser Soap and Water Irrigated with Saline -Foul Odor after Cleansing No No No -Anesthetic Used 4% Lidocaine 4% Lidocaine 4% Lidocaine Solution Solution Solution WC - Nurse 2 - General Ulcer CM Notes Start: 09/14/24 08:52 Freq: Status: Active Protocol: Activity Type Activity Date Activity User E-sign Co-sign Detail Recorded Client Recorded Date Recorded By Document 09/14/24 09:17 [id number] 09/14/24 09:48 Document 09/21/24 09:30 [id number] 09/21/24 09:52 Document 09/28/24 09:31 [id number] 09/28/24 09:46 09/14/24 09/21/24 09/28/24 09:17 09:30 09:31 Wound Center Nurse 2 scrotum -Time 09:35 09:42 -Correct Patient Yes Yes -Correct Side, Site, Position Yes Yes -Correct Procedure No No -Procedure Performed No No -Post Debridement (cm) - Length 3.0 -Post Debridement (cm) - Width 1.0 -Post Debridement (cm) - Depth 0.1 -Total Square (Post) (cm) 3.00 -Tunneling No No -Undermining/Tunneling No No -Circular Undermining No No -Wound/Ulcer Outcome Not Healed Healed- Epithelialized -Ulcer Cleansing Rinsed/ Not Cleansed Irrigated with Saline -Foul Odor after Cleansing No No -Bioengineered Tissue No No -Bleeding Controlled with NA NA -Assistive Device(s) Wheelchair -Pressure Reduction Wheelchair cushion 3. R ischium -Time 09:20 09:32 09:32 -Correct Patient Yes Yes Yes -Correct Side, Site, Position Yes Yes Yes -Correct Procedure Yes Yes Yes -Procedure Performed Yes Yes Yes -Type of Procedure Debridement Debridement Debridement -Clinical Debridement Muscle / Fascia Muscle / Fascia Muscle / Fascia -Tissue Removed Muscle Muscle Muscle -Post Debridement (cm) - Length 8.4 9.0 8.5 -Post Debridement (cm) - Width 4.8 4.9 5.0 -Post Debridement (cm) - Depth 0.1 0.1 0.1 -Total Square (Post) (cm) 40.32 44.10 42.50 -Area of Debridement (cm) - Length 8.4 9.0 8.5 -Area of Debridement (cm) - Width 4.8 4.9 5.0 -Total Square (Area) (cm) 40.32 44.10 42.50 -Tunneling No No No -Undermining/Tunneling No No No -Circular Undermining No No No -Wound/Ulcer Outcome Not Healed Not Healed Not Healed -Ulcer Cleansing Rinsed/ Rinsed/ Rinsed/ Irrigated with Irrigated with Irrigated with Saline Saline Saline -Foul Odor after Cleansing No No No -Bioengineered Tissue No No No -Bleeding Controlled with Pressure,Silver Pressure Pressure Nitrate ($) -Treatment Response Procedure Procedure Procedure Tolerated Well Tolerated Well Tolerated Well -Offloading No No No -Assistive Device(s) Wheelchair -Pressure Reduction Wheelchair cushion -Debridement - Muscle / Fascia, 1st No No No 20sq cm 2. L ischium -Time 09: 09:34 09:33 -Correct Patient Yes Yes Yes -Correct Side, Site, Position Yes Yes Yes -Correct Procedure Yes Yes Yes -Procedure Performed Yes Yes Yes -Type of Procedure Debridement Debridement Debridement -Clinical Debridement Subcutaneous Subcutaneous Subcutaneous -Tissue Removed Subcutaneous Subcutaneous Subcutaneous -Post Debridement (cm) - Length 2.0 2.5 1.5 -Post Debridement (cm) - Width 2.5 2.5 0.6 -Post Debridement (cm) - Depth 0.1 0.1 0.1 -Total Square (Post) (cm) 5.00 6.25 0.90 -Area of Debridement (cm) - Length 2.0 2.5 1.5 -Area of Debridement (cm) - Width 2.5 2.0 0.6 -Total Square (Area) (cm) 5.00 5.00 0.90 -Tunneling No No No -Undermining/Tunneling No No No -Circular Undermining No No No -Wound/Ulcer Outcome Not Healed Not Healed Not Healed -Ulcer Cleansing Rinsed/ Rinsed/ Rinsed/ Irrigated with Irrigated with Irrigated with Saline Saline Saline -Foul Odor after Cleansing No No No -Bioengineered Tissue No No No -Bleeding Controlled with Pressure Pressure Pressure -Treatment Response Procedure Procedure Procedure Tolerated Well Tolerated Well Tolerated Well -Offloading No No No -Debridement - Subq, 1st 20sq cm Yes Yes Yes *1. coccyx -Time 09: 09:35 09:33 -Correct Patient Yes Yes Yes -Correct Side, Site, Position Yes Yes Yes -Correct Procedure Yes Yes Yes -Procedure Performed Yes Yes Yes -Type of Procedure Debridement Debridement Debridement -Clinical Debridement Muscle / Fascia Muscle / Fascia Muscle / Fascia -Tissue Removed Muscle Muscle Muscle -Post Debridement (cm) - Length 16.0 15.0 15.0 -Post Debridement (cm) - Width 15.5 16.0 15.5 -Post Debridement (cm) - Depth 0.1 0.1 0.1 -Total Square (Post) (cm) 248.00 240.00 232.50 -Area of Debridement (cm) - Length 16.0 15 15.0 -Area of Debridement (cm) - Width 15.5 16 15.5 -Total Square (Area) (cm) 248.00 240 232.50 -Tunneling No No No -Undermining/Tunneling No No No -Circular Undermining No No No -Wound/Ulcer Outcome Not Healed Not Healed Not Healed -Ulcer Cleansing Rinsed/ Rinsed/ Rinsed/ Irrigated with Irrigated with Irrigated with Saline Saline Saline -Foul Odor after Cleansing No No No -Bioengineered Tissue No No No -Bleeding Controlled with Pressure Pressure Pressure, Surgifoam ? x 2 3/8 (sm) -Surgifoam (3/4 x 2 3/8) Small 1 -Treatment Response Procedure Procedure Tolerated Well Tolerated Well -Offloading No No No -Assistive Device(s) Wheelchair Wheelchair -Pressure Reduction Wheelchair Wheelchair cushion cushion -Debridement - Muscle / Fascia, 1st Yes Yes Yes 20sq cm -Debridement, Muscle/Fascia, ea addt'l 14 14 13 20sq cm or part thereof Pain Scale: 0-10 Numeric Is Patient Pain Free? Yes Yes Yes WC - Nurse 3 - General Ulcer D/C NN Start: 09/14/24 08:52 Freq: Status: Active Protocol: Activity Type Activity Date Activity User E-sign Co-sign Detail Recorded Client Recorded Date Recorded By Document 09/14/24 10:40 RB [id number] 09/14/24 10:42 RB Document 09/21/24 10:19 RB [id number] 09/21/24 10:21 RB Document 09/28/24 10:01 KW [id number] 09/28/24 10:02 KW 09/14/24 09/21/24 09/28/24 10:40 10:19 10:01 Wound Care Center Nurse 3 scrotum -Ulcer Cleansing Rinsed/ Irrigated with Saline -Primary Dressing Applied Aquacel Extra -Other Dressing abd dakins moistened gauze /ABD -Primary Dressing Covered/Secured with Dry Gauze, Dry Gauze, Secured with Secured with Tape Tape -Aquacel Extra 1 3. R ischium -Primary Dressing Applied Optilok 6.5x10 -Other Dressing dakins gauze dakins dakins gauze moistened gauze /ABD -Primary Dressing Covered/Secured with Secured with Dry Gauze, Dry Gauze, Tape Secured with Secured with Tape Tape -Optilok 6.5x10 1 2. L ischium -Other Dressing dakins dakins dakins gauze moistened gauze moistened gauze / ABD -Primary Dressing Covered/Secured with Dry Gauze, Secured with Dry Gauze, Secured with Tape Secured with Tape Tape *1. coccyx -Other Dressing dakins dakins dakins gauze moistened gauze moistened /ABD / superabsorber -Primary Dressing Covered/Secured with Dry Gauze, Secured with Dry Gauze, Secured with Tape Secured with Tape Tape Treatment Response Procedure Procedure Tolerated Well Tolerated Well Pain Scale: 0-10 Numeric Is Patient Pain Free? Yes Yes Yes WC - Visit Discharge Discharge Condition Stable Stable Stable Ambulatory Status Wheelchair Wheelchair Wheelchair Transportation [facility] Medication Reconcilliation completed & No No provided to patient/care provider Clinical Summary of Care Provided Yes Yes Notes: kelli lift assit x 4 Additional Wound Wound debrided: right ischium Laterality: Right Wound Grade/Stage: Stage III Type of Debridement: Excisional debridement Anesthesia Used: 4% Lidocaine Solution Depth: Down to and including healthy tissue and in the subcutaneous layer Percentage of wound debrided: 100 Instrument Used: 5mm curette Tissue Removed: Yellow slough, devitalized tissue Severity: Fat Layer Exposed Amount of bleeding with debridement: Mild Bleeding Controlled with: Compression and gauze Patient tolerated procedure: Patient tolerated procedure well Additional Wound Wound debrided: coccyx Laterality: Not Applicable Wound Grade/Stage: Stage IV Type of Debridement: Excisional debridement Anesthesia Used: 4% Lidocaine Solution Depth: Down to and including healthy tissue, in the subcutaneous layer and to muscle Percentage of wound debrided: 100 Instrument Used: 5mm curette Tissue Removed: Yellow slough, devitalized tissue Severity: Necrosis of Muscle Amount of bleeding with debridement: Moderate Bleeding Controlled with: Compression and gauze and Gel Foam Patient tolerated procedure: Patient tolerated procedure well Assessment/Plan Assessment/Plan (1) Chronic pain: CODE(S): G89.29 - Other chronic pain QUALIFIERS: Chronic pain type: chronic pain syndrome Qualified Code(s): G89.4 - Chronic pain syndrome (2) Hypoxia: CODE(S): R09.02 - Hypoxemia (3) History of paraplegia: CODE(S): Z86.69 - Personal history of other diseases of the nervous system and sense organs (4) Chronic indwelling Campbell catheter: CODE(S): Z97.8 - Presence of other specified devices (5) Type 2 diabetes mellitus: CODE(S): E11.9 - Type 2 diabetes mellitus without complications QUALIFIERS: Diabetes mellitus termite treater insulin use: without snf use Diabetes mellitus complication status: with neurologic complications Diabetes mellitus complication detail: with polyneuropathy Qualified Code(s): E11.42 - Type 2 diabetes mellitus with diabetic polyneuropathy (6) Chronic anticoagulation: CODE(S): Z79.01 - rn long term care (current) use of anticoagulants (7) History of deep vein thrombosis: CODE(S): Z86.718 - Personal history of other venous thrombosis and embolism (8) Decubitus ulcer of sacral region, stage 4: CODE(S): L89.154 - Pressure ulcer of sacral region, stage 4 (9) Decubitus ulcer of left perineal ischial region, stage 2: CODE(S): L89.322 - Pressure ulcer of left buttock, stage 2 (10) Hx of spinal surgery: CODE(S): Z98.890 - Other specified postprocedural states (11) Colostomy status: CODE(S): Z93.3 - Colostomy status (12) HTN (hypertension): CODE(S): I10 - Essential (primary) hypertension QUALIFIERS: Hypertension type: primary hypertension Qualified Code(s): I10 - Essential (primary) hypertension (13) BATOOL treated with BiPAP: CODE(S): G47.33 - Obstructive sleep apnea (adult) (pediatric) (14) Lymphedema: CODE(S): I89.0 - Lymphedema, not elsewhere classified (15) Decubitus ulcer of right ischium, stage 3: CODE(S): L89.313 - Pressure ulcer of right buttock, stage 3 PLAN: Plan Debridement performed today in clinic as annotated above. At home wound-care instructions: The patient's ulcers will be washed with antibacterial soap and water and then will use Dakins wet to dry to wound bed and cover with gauze and superabsorber for heavy drainage twice daily. Keep dressing clean and dry. Off-loading: The patient was instructed to avoid pressure and friction on the affected areas. Reposition every 2 hours at minimum. Avoid prolonged standing and/or dangling of legs. When seated, feet should be elevated at chest level. Continue air mattress. Order has been written for alternating pressure air mattress to assist in offloading pressure to his ulcers. He reports that his current mattress may have this capability but needs to be programmed to use this feature and the DME provider is supposed to be coming out to see if they can implement this. Diet: Patient encouraged to increase protein intake while taking caution to avoid high carbohydrate and/or sugar intake. He is getting [place] protein supplement at [facility]. Labs/cultures/imaging: Will obtain previous imaging results. Most recent A1C 7.9% on 07/23/24. Wound culture showed multiple bacteria and he was completed on Flagyl and Cefdinir. Follow-up: Return in 1 week for wound care follow up. Return sooner or report to the emergency room should symptoms worsen, or new symptoms arise. Note: [employer] speech recognition director of instrumental music software was used to create portions of this document. Sound-alike and misspelled words, as well as other director of instrumental music errors may be contained in the documentation.
== END 2024-10-13 23:59 | disposition home or self-care (01) ==
LOC: WC 09:00
PROVIDERS: PCP Internal Medicine; Referring Provider Internal Medicine; Visit Provider Family Medicine
DX: L89.154 Pressure ulcer of sacral region, stage 4 (principal); L89.313 Pressure ulcer of right buttock, stage 3; G82.20 Paraplegia, unspecified; L89.322 Pressure ulcer of left buttock, stage 2; Z93.3 Colostomy status; E11.42 Type 2 diabetes mellitus with diabetic polyneuropathy; R09.02 Hypoxemia; I89.0 Lymphedema, not elsewhere classified; G47.33 Obstructive sleep apnea (adult) (pediatric); I10 Essential (primary) hypertension; G89.4 Chronic pain syndrome; M54.9 Dorsalgia, unspecified; Z79.01 Long term (current) use of anticoagulants; Z86.718 Personal history of other venous thrombosis and embolism; Z87.39 Personal history of other diseases of the musculoskeletal system and connective tissue
CPT/HCPCS: 11042; 11043; 11046

== ENCOUNTER → 2024-10-01 04:00 | Outpatient (REF) | payer MEDICAID, SELFPAY ==
[2024-10-01 07:44] LABS: Hematocrit 37.6 % (40-54); Hemoglobin 10.3 g/dL (13.0-16.5); Mean Corp Hgb Conc 27.4 g/dL (32-36); Mean Corpuscular Hgb 23.1 pg (27.0-32.0); Mean Corpuscular Volume 84.3 fL (80-94); Red Blood Count 4.46 M/mm3 (4.6-6.2); White Blood Count 8.8 K/mm3 (4.4-11.0)
[2024-10-01 07:45] LABS: Absolute Lymphocyte Count 2.08 X10^3/uL (0.83-4.51); Absolute Neutrophil Count 5.5 X10^3/uL (2.0-7.7); Basophil# 0.03 X10^3/uL; Basophil% 0.3 % (0-1); Eosinophil# 0.34 X10^3/uL; Eosinophils% 3.9 % (0-5); Lymphocyte # 2.08 X10^3/ul (0.83-4.51); Lymphocyte % 23.6 % (19-41); Mean Platelet Vol. 9.8 fl (6.2-12.0); Monocyte# 0.79 X10^3/uL; NRBC Flagged by Analyzer 0 % (0-5); Neutrophil % 62.4 % (47-70); Platelet Count 345 K/mm3 (150-450); RBC Distribution Width CV 17.4 % (11.6-14.6); RBC Distribution Width SD 53.6 fl (35.1-43.9)
[2024-10-01 07:46] LABS: Anion Gap 9 (5-15); BUN 13 mg/dL (4-19); BUN/Creat Ratio 22.7 RATIO (10-20); Calcium,Total 8.6 mg/dL (7.6-11.0); Carbon Dioxide 31.3 mmol/L (21.0-32.0); Chloride 95 mmol/L (98-108); Creatinine, Serum 0.59 mg/dL (0.70-1.20); EST Glomerular Filtration Rate 113 (>60); Glucose 279 mg/dL (70-99); Potassium 4.6 mmol/L (3.3-5.1); Sodium Level 135 mmol/L (133-145)
== END ==
LOC: OLS.WHLEAS 04:00
PROVIDERS: PCP Internal Medicine; Referring Provider Internal Medicine; Visit Provider Internal Medicine
DX: E11.9 Type 2 diabetes mellitus without complications (principal); G82.20 Paraplegia, unspecified
CPT/HCPCS: 36415; 80048; 85025

== ENCOUNTER → 2024-10-03 | Outpatient (REF) | payer MEDICAID, SELFPAY | END | disposition home or self-care (01) | LOC: OLS.WHLEAS 15:30 | PROVIDERS: PCP Internal Medicine; Visit Provider Internal Medicine | DX: J18.9 Pneumonia, unspecified organism (principal) | CPT/HCPCS: 87449 ==

== ENCOUNTER → 2024-10-03 | Outpatient (REF) | payer MEDICAID, SELFPAY ==
[2024-10-03 06:55] LABS: Absolute Lymphocyte Count 2.06 X10^3/uL (0.83-4.51); Absolute Neutrophil Count 6.5 X10^3/uL (2.0-7.7); Basophil# 0.05 X10^3/uL; Basophil% 0.5 % (0-1); Eosinophil# 0.29 X10^3/uL; Hematocrit 35.8 % (40-54); Hemoglobin 9.9 g/dL (13.0-16.5); Lymphocyte # 2.06 X10^3/ul (0.83-4.51); Lymphocyte % 21.1 % (19-41); Mean Corp Hgb Conc 27.7 g/dL (32-36); Mean Corpuscular Hgb 23.2 pg (27.0-32.0); Mean Platelet Vol. 9.6 fl (6.2-12.0); Monocyte# 0.84 X10^3/uL; Monocyte% 8.6 % (0-10); NRBC Flagged by Analyzer 0 % (0-5); Neutrophil # 6.45 X10^3/uL (2.7-7.7); Neutrophil % 65.9 % (47-70); Platelet Count 330 K/mm3 (150-450); RBC Distribution Width CV 17.4 % (11.6-14.6); RBC Distribution Width SD 53.1 fl (35.1-43.9); Red Blood Count 4.26 M/mm3 (4.6-6.2); White Blood Count 9.8 K/mm3 (4.4-11.0)
[2024-10-03 07:42] LABS: Anion Gap 10 (5-15); BUN 18 mg/dL (4-19); BUN/Creat Ratio 28.7 RATIO (10-20); Calcium,Total 8.9 mg/dL (7.6-11.0); Carbon Dioxide 32.8 mmol/L (21.0-32.0); Chloride 95 mmol/L (98-108); Creatinine, Serum 0.63 mg/dL (0.70-1.20); EST Glomerular Filtration Rate 111 (>60); Glucose 191 mg/dL (70-99); Potassium 4.9 mmol/L (3.3-5.1); Sodium Level 138 mmol/L (133-145)
== END | disposition home or self-care (01) ==
LOC: OLS.WHLEAS 05:00
PROVIDERS: PCP Internal Medicine; Visit Provider Internal Medicine
DX: R06.02 Shortness of breath (principal); G82.20 Paraplegia, unspecified; E11.42 Type 2 diabetes mellitus with diabetic polyneuropathy; I50.32 Chronic diastolic (congestive) heart failure
CPT/HCPCS: 36415; 80048; 85025

== ENCOUNTER → 2024-10-09 05:00 | Outpatient (REF) | payer MEDICAID, SELFPAY ==
[2024-10-09 07:32] LABS: Absolute Lymphocyte Count 2.47 X10^3/uL (0.83-4.51); Basophil# 0.05 X10^3/uL; Basophil% 0.5 % (0-1); Eosinophil# 0.32 X10^3/uL; Eosinophils% 3.3 % (0-5); Hematocrit 36.2 % (40-54); Hemoglobin 9.9 g/dL (13.0-16.5); Lymphocyte # 2.47 X10^3/ul (0.83-4.51); Lymphocyte % 25.4 % (19-41); Mean Corp Hgb Conc 27.3 g/dL (32-36); Mean Corpuscular Hgb 22.8 pg (27.0-32.0); Mean Corpuscular Volume 83.4 fL (80-94); Mean Platelet Vol. 9.5 fl (6.2-12.0); Monocyte# 0.81 X10^3/uL; Monocyte% 8.3 % (0-10); NRBC Flagged by Analyzer 0 % (0-5); Neutrophil % 61.8 % (47-70); Platelet Count 327 K/mm3 (150-450); RBC Distribution Width CV 17.5 % (11.6-14.6); RBC Distribution Width SD 53.5 fl (35.1-43.9); Red Blood Count 4.34 M/mm3 (4.6-6.2); White Blood Count 9.7 K/mm3 (4.4-11.0)
[2024-10-09 07:46] LABS: Anion Gap 10 (5-15); BUN 14 mg/dL (4-19); BUN/Creat Ratio 20.7 RATIO (10-20); Calcium,Total 8.8 mg/dL (7.6-11.0); Carbon Dioxide 31.1 mmol/L (21.0-32.0); Chloride 97 mmol/L (98-108); Creatinine, Serum 0.69 mg/dL (0.70-1.20); EST Glomerular Filtration Rate 108 (>60); Glucose 180 mg/dL (70-99); Potassium 4.6 mmol/L (3.3-5.1); Sodium Level 139 mmol/L (133-145)
== END ==
LOC: OLS.WHLEAS 05:00
PROVIDERS: PCP Internal Medicine; Visit Provider Internal Medicine
DX: E11.9 Type 2 diabetes mellitus without complications (principal)
CPT/HCPCS: 36415; 80048; 85025

== ENCOUNTER 2024-10-12 07:27 | Inpatient (IN) | payer MEDICAID, SELFPAY ==
[2024-10-12] VITALS (17 sets, daily range): BP systolic 118–161; BP diastolic 69–78; PULSE 94–106; RESP 13–24; TEMP 36.4–37.2; O2SAT 85–100; BMI 47.1; BMI 51.1
--- NOTE | 2024-10-12 07:37 | ED.VIS.DYS ---
HPI History of Present Illness Chief Complaint: Shortness of Breath Informant: patient and EMS Narrative Narrative: 59-year-old male brought in by EMS just after 7 AM for hypoxemia. [facility] for [facility] for about the past 2 or 3 weeks according to the patient, he states he is about done with antibiotics, according to his medication list he currently is on azithromycin and Augmentin. No history of chronic lung disease or chronic heart disease except for pulmonary emboli for which he is currently on a apixaban. EMS states that he was 60% on room air at the [facility] and that about 4 hours ago so they put him on high flow but he was still apparently hypoxic. After seeing the patient, our nurse spoke with the [facility] nurse, who states he was never on room air; he is on 3 L of oxygen even before he had pneumonia, and was on this last night when his oxygen saturations went down to the 80% range so the night nurse turned him up to 5 L but was unable to get his oxygen saturations beyond the 70-80% range. Was in the 60-70% range at 1 point in time. She offered to have the patient go to the ER but he refused because he has a wound care appointment this morning and did not want to miss it, but the morning 7 AM nurse came in and put him on a nonrebreather and told the patient since he is a full code and very hypoxic/dyspneic, he would need to be sent to the ER and wound care would not likely be able to care for him anyway. He states he really has not felt that much more dyspneic this morning than he had, maybe a little more, and some mild chest tightness. He has been coughing and has had rhonchorous breathing for maybe the last week. Apparently the patient is in [facility] because he had a spinal surgery that ended up having infection of hardware and osteomyelitis, this led to other surgeries, paraplegia, postoperative complications including pneumonia, pulmonary emboli, sacral decubitus ulcer along with osteomyelitis of the sacrum. This was all within the past 8 years with the majority of the complications in the past 2 years. [facility] Medical History VRE (vancomycin resistant enterococcus) culture positive Decubitus ulcer of sacral region, stage 4 Lymphedema BATOOL treated with BiPAP Abscess of back Constipation Pressure ulcer of sacral region Chronic indwelling Campbell catheter Blood loss anemia Clot retention of urine Pressure injury, unstageable, with eschar Bilateral pulmonary embolism Rhabdomyolysis Community acquired pneumonia Hypoglycemia Acute osteomyelitis of spine Former tobacco use Paraplegia Cellulitis of leg without foot, right Anemia BMI greater than 40 Type 2 diabetes mellitus HTN (hypertension) H/o back surgery Home Medications ?Medication ?Instructions ?Recorded ?Last Taken ?Type fluticasone propionate 50 1 spray intranasal DAILY shortness 03/03/20 Unknown History mcg/actuation nasal of breath spray,suspension (Flonase Allergy Relief) apixaban 5 mg tablet (Eliquis) 5 mg PO BID 07/29/23 08/31/23 History methocarbamol 500 mg tablet 1,000 mg PO TID PRN cramps 07/29/23 08/31/23 History polyethylene glycol 3350 17 17 g PO DAILY PRN constipation 07/29/23 07/29/23 History gram/dose oral powder (ClearLax) pantoprazole 40 mg tablet,delayed 40 mg PO DAILY 08/31/23 08/31/23 History release aluminum-mag hydroxide-simethicone 30 ml PO Q6H PRN PRN Gastric 09/13/23 Unknown Rx 400 mg-400 mg-40 mg/5 mL oral susp Burning #0 mL (Mag-Al Plus Extra Strength) amlodipine 10 mg tablet 10 mg PO DAILY #0 tabs 09/13/23 Unknown Rx carvedilol 12.5 mg tablet 12.5 mg PO BIDCM #0 tabs 09/13/23 Unknown Rx diphenhydramine HCl 25 mg capsule 25 mg PO TID PRN PRN Itching #0 09/13/23 Unknown Rx (Banophen) caps peg [id number] 1 1 drp EACH EYE BID #0 mL 09/13/23 Unknown Rx %-0.2 %-0.2 % eye drops (Artificial Tears ([id number])) polysaccharide iron complex 150 mg 150 mg PO DAILY 10/15/23 Unknown History iron capsule (Ferrex) sennosides 8.6 mg-docusate sodium 2 tab PO BID Constipation 10/15/23 Unknown History 50 mg tablet (Stool Softener-Stimulant Laxative) insulin lispro 100 unit/mL See Protocol subcut ACHS 10/23/23 Unknown History subcutaneous pen (Humalog KwikPen (U-100) Insulin) loratadine 10 mg tablet 10 mg PO DAILY 10/23/23 Unknown History (Allerclear) albuterol sulfate 2.5 mg/3 mL 2.5 mg inhalation BID 10/25/23 Unknown History (0.083 %) solution for nebulization acetaminophen 500 mg tablet 1,000 mg PO TID PRN pain 02/09/24 Unknown History furosemide 20 mg tablet 20 mg PO DAILY 02/09/24 Unknown History arginine 7 gram-glutamine 7 1 ea PO BID 03/22/24 Unknown History gram-calcium HMB 1.5 gram oral powder pack (Wiliam) amino acids-protein hydrolysate 15 30 ml PO BID 03/26/24 Unknown History gram-100 kcal/30 mL oral liquid (Pro-Stat Sugar Free) ascorbic acid (vitamin C) 500 mg 500 mg PO QDAY 03/26/24 Unknown History tablet chlorhexidine gluconate 4 % 1 applic topical .twice a week 03/26/24 Unknown History topical liquid (Hibiclens) dextrose 40 % oral gel (Glucose 10 g PO Q15M 03/26/24 Unknown History Gel) naloxone 0.4 mg/mL injection 0.4 mg IM Q5M PRN opioid reversal 03/26/24 Unknown History syringe ondansetron 4 mg disintegrating 4 mg PO Q4H PRN nausea 03/26/24 Unknown History tablet sodium chloride 0.65 % nasal mist 2 spray intranasal Q2H PRN dry 03/26/24 Unknown History nasal passages dulaglutide 3 mg/0.5 mL 3 mg subcut QWEEK 07/18/24 Unknown History subcutaneous pen injector (Trulicity) duloxetine 30 mg capsule,delayed 60 mg PO QDAY 07/18/24 Unknown History release insulin glargine 100 unit/mL 10 unit subcut DAILY diabetes 07/18/24 Unknown History subcutaneous solution (Lantus mellitus type 2 U-100 Insulin) insulin lispro 100 unit/mL 6 unit subcut TID 07/18/24 Unknown History subcutaneous solution metformin 500 mg tablet 1,000 mg PO QDAY 07/18/24 Unknown History fenofibrate 54 mg tablet 54 mg PO DAILY 08/17/24 Unknown History lorazepam 1 mg tablet 1 mg PO DAILY PRN anxiety 08/17/24 Unknown History nystatin 100,000 unit/gram topical topical 08/17/24 Unknown History powder cefdinir 300 mg capsule 300 mg PO BID #20 caps 09/07/24 Unknown Rx metronidazole 500 mg tablet 500 mg PO BID #20 tabs 09/07/24 Unknown Rx oxycodone 10 mg tablet 10 mg PO .QID pain 30 days #120 10/09/24 Unknown Rx tabs morphine 30 mg capsule,extended 30 mg PO Q12H 30 days #60 caps 10/10/24 Unknown Rx release pellets ([place]) Allergy/AdvReac Type Severity Reaction Status Date / Time No Known Allergies Allergy Verified 10/12/24 07:34 Family History Mother Hypertension Hypotension Diabetes Arthritis Father Hypertension Hypotension Heart disease Status post double vessel coronary artery bypass angina Arthritis Grandfather Prostate cancer Grandmother Uterine cancer Surgical History History of hip replacement Colostomy status Hx of spinal surgery H/O sinus surgery Social History housing: [facility] current occupational status: employed and retired Smoking Status: Former smoker alcohol intake: never substance use type: does not use do you feel safe at home: Yes ROS ROS ED Constitutional Constitutional ED: Reports weakness; Denies chills or fever(s) Eyes Eyes: Denies change in vision or diplopia ENT ENT ED: Denies rhinorrhea or sore throat Cardiovascular Cardiovascular: Reports chest pain, fatigue and other Details: Chronic bilateral lower extremity edema unchanged ; Denies palpitations, radiating jaw, neck or arm pain or syncope Respiratory/Chest Respiratory/Chest: Reports chest tightness, cough and dyspnea Gastrointestinal Gastrointestinal: Denies abdominal pain, diarrhea, nausea or vomiting Genitourinary Genitourinary ED: Denies dysuria or hematuria Musculoskeletal Musculoskeletal: Denies myalgias or neck pain Integumentary Denies abscess or rash Neurologic Neurologic: Reports paresthesias and weakness; Denies headache(s) Psychiatric Psychiatric: Denies anxiety or suicidal thoughts EXAM Physical Exam Const Vital Signs: 10/12/24 07:28 10/12/24 07:34 10/12/24 07:59 Temperature 98.1 F 98.1 F Temperature Source Axillary Axillary Pulse Rate 103 H 103 H Respiratory Rate 18 18 Respiratory Effort Respiratory Depth Respiratory Pattern Blood Pressure 148/76 H 148/76 H Blood Pressure Mean 100 100 Pulse Ox 98 98 Oxygen Delivery Method Non-Rebreather Non-Rebreather Non-Rebreather Oxygen Flow Rate (L/min) 15 15 15 10/12/24 07:59 Temperature Temperature Source Pulse Rate Respiratory Rate Respiratory Effort Normal Non-Labored Respiratory Depth Normal Respiratory Pattern Normal Blood Pressure Blood Pressure Mean Pulse Ox Oxygen Delivery Method Oxygen Flow Rate (L/min) Positive well nourished, well developed and obese General Appearance ED: well developed and NAD Nutritional Appearance: obese HEENT Reports moist mucous membranes normocephalic and atraumatic Eyes PERRL and EOMs intact bilaterally Neck full ROM, supple and no JVD Resp normal respiratory effort Resp Narrative: Rhonchorous breath sounds throughout, clearly audible externally without stethoscope suggesting upper airway etiology. Cardio regular rate, regular rhythm and no murmurs Cardio Narrative: Mildly tachycardic low 100s GI non-tender and non-distended GI Narrative: Colostomy left lower quadrant, there is some herniation of the mucosa but it is otherwise benign and outputting nonbloody stool Auscultation: normoactive bowel sounds Palpation: soft Back/Spine no CVA tenderness General Back: other FROM Extremity normal to inspection General Extremety ED: Yes edema; Negative for pulses abnormal or tenderness General Extremity: edema bilateral lower extremity Details: moderate (With changes of chronic stasis dermatitis both lower legs, no tenderness.); Negative for pulses abnormal Neuro oriented x3 and CN's II-XII intact bilaterally Sensorium / Orientation: awake and alert Psych mental status grossly normal Skin no rashes or lesions noted and no wounds MDM MDM MDM Narrative Medical decision making narrative: Although patient sounds rhonchorous/wet, he is breathing well did not require breathing treatment. Will be chest x-ray my interpretation is ambiguous; appears to have some fluid in both bases, and possibly the fissure indicating pleural effusion on the right, so this looks like congestion/CHF but his proBNP is only 158 which is extremely low arguing against acute decompensated congestive heart failure, and this is more likely to be either third spacing, infection, or both. His white blood count is only 8.4. Etiology is unknown but it is increasing his oxygen requirement. Respiratory was able to wean him down to high flow at 10 L he is currently 95-98%, he denies having any chest discomfort right now. His initial troponin is nonspecifically elevated at 107, his EKG shows a stable right bundle branch block without signs of acute ischemia/injury, will admit for further testing and treatment. He is on a apixaban already so I did not think he needed emergent PE testing. His anemia is chronic and stable. He does have third spacing in his body from being immobile, this could be related. Also in the differential is failure of outpatient therapy of his pneumonia, also possibly primary cardiac such as acute coronary syndrome although he is having no chest discomfort right now. History & Record Review Additional record(s) reviewed:: Prior outpatient record (Wound care visit 2 weeks ago) Lab Data Attestation: I reviewed the patient's lab results. Labs: Laboratory Results - last 24 hr 10/12/24 07:56 WBC 8.4 RBC 4.24 L Hgb 9.7 L Hct 34.8 L MCV 82.1 MCH 22.9 L MCHC 27.9 L RDW Std Deviation 52.8 H RDW Coeff of Mary 17.6 H Plt Count 287 MPV 9.5 Immature Gran % (Auto) 1.300 H Neut % (Auto) 66.3 Lymph % (Auto) 17.5 L [place] % (Auto) 11.2 H Eos % (Auto) 3.2 Baso % (Auto) 0.5 Absolute Neuts (auto) 5.6 Absolute Lymphs (auto) 1.47 Nucleated RBC % 0 Sodium 133 Potassium 4.8 Chloride 93 L Carbon Dioxide 31.3 Anion Gap 9 BUN 20 H Creatinine 0.59 L Estim Creat Clear Calc 208.01 Est GFR (MDRD) Non-Af 113 BUN/Creatinine Ratio 34.0 H Glucose 175 H Lactic Acid < 1.0 Calcium 8.7 Troponin T High Sens 107 H* NT pro BNP II 158 Radiography Diagnostic Testing: Clinical Impression(s) from Imaging Studies Chest X-Ray 10/12/24 08:00 IMPRESSION: Mild degree of vascular congestion with bibasilar atelectasis and small bilateral effusions slightly more prominent on the right side. Reading Location: [place] [address] Rhythm Strip Rhythm Strip: Sinus Tach Rate: 103 Ectopy: None EKG Initial EKG: Attestation: I personally reviewed and interpreted this EKG as follows: Interpretation: No Acute Injury Pattern, Sinus Tachycardia and RBBB Prior EKG tracings: available for review Prior: Unchanged (2023) Management Discussion w/another healthcare provider: Hospitalist Discharge Plan Dx/Rx/DC Orders Clinical Impression: Acute hypoxic respiratory failure, Elevated troponin, Chest pain Disposition Disposition: Acute Care Hospital [facility]
--- NOTE | 2024-10-12 08:00 | RAD_ITS ---
PROCEDURE: CHEST 1 VIEW (PORTABLE) 10/12/2024 REASON FOR EXAM: CHEST PAIN TECHNIQUE: Frontal view of the chest. COMPARISON: Prior study dated October 25, 2023. FINDINGS: Hardware: EKG electrodes are seen. Heart: Mild cardiomegaly. Lungs: Vascular congestion mild degree of CHF with bibasilar atelectasis and small bilateral pleural effusions slightly more prominent on the right side. Bones: Prior fusion of the lower thoracic and lumbar vertebrae. Other: RAD/Chest 1 View (Portable) IMPRESSION: Mild degree of vascular congestion with bibasilar atelectasis and small bilater al effusions slightly more prominent on the right side. Reading Location: [place] [address]
[2024-10-12 08:11] LABS: Absolute Lymphocyte Count 1.47 X10^3/uL (0.83-4.51); Absolute Neutrophil Count 5.6 X10^3/uL (2.0-7.7); Basophil# 0.04 X10^3/uL; Basophil% 0.5 % (0-1); Eosinophil# 0.27 X10^3/uL; Eosinophils% 3.2 % (0-5); Hematocrit 34.8 % (40-54); Hemoglobin 9.7 g/dL (13.0-16.5); Lymphocyte # 1.47 X10^3/ul (0.83-4.51); Lymphocyte % 17.5 % (19-41); Mean Corp Hgb Conc 27.9 g/dL (32-36); Mean Corpuscular Hgb 22.9 pg (27.0-32.0); Mean Corpuscular Volume 82.1 fL (80-94); Mean Platelet Vol. 9.5 fl (6.2-12.0); Monocyte# 0.94 X10^3/uL; Monocyte% 11.2 % (0-10); NRBC Flagged by Analyzer 0 % (0-5); Neutrophil # 5.58 X10^3/uL (2.7-7.7); Neutrophil % 66.3 % (47-70); Platelet Count 287 K/mm3 (150-450); RBC Distribution Width CV 17.6 % (11.6-14.6); RBC Distribution Width SD 52.8 fl (35.1-43.9); Red Blood Count 4.24 M/mm3 (4.6-6.2); White Blood Count 8.4 K/mm3 (4.4-11.0)
[2024-10-12 08:22] LABS: Anion Gap 9 (5-15); BUN 20 mg/dL (4-19); Calcium,Total 8.7 mg/dL (7.6-11.0); Carbon Dioxide 31.3 mmol/L (21.0-32.0); Chloride 93 mmol/L (98-108); Creatinine, Serum 0.59 mg/dL (0.70-1.20); EST Glomerular Filtration Rate 113 (>60); Estimated Creatinine Clearance 208.01 ml/min (50-250); Glucose 175 mg/dL (70-99); Potassium 4.8 mmol/L (3.3-5.1); Pro- Brain NATRIURETIC PEPTIDE 158 pg/mL (<=900); Sodium Level 133 mmol/L (133-145)
[2024-10-12 08:24] LABS: Troponin T High Sensitivity 107 ng/L (<=22)
[2024-10-12 08:27] LABS: Lactic Acid < 1.0 mmol/L (0.0-2.0)
--- NOTE | 2024-10-12 08:44 | HP.PCM.HOS_ITS ---
HPI - General HPI Narrative MELISSA ELIAS, is a 59 M who presents [facility] Medical History VRE (vancomycin resistant enterococcus) culture positive Decubitus ulcer of sacral region, stage 4 Lymphedema BATOOL treated with BiPAP Abscess of back Constipation Pressure ulcer of sacral region Chronic indwelling Campbell catheter Blood loss anemia Clot retention of urine Pressure injury, unstageable, with eschar Bilateral pulmonary embolism Rhabdomyolysis Community acquired pneumonia Hypoglycemia Acute osteomyelitis of spine Former tobacco use Paraplegia Cellulitis of leg without foot, right Anemia BMI greater than 40 Type 2 diabetes mellitus HTN (hypertension) H/o back surgery Home Medications ?Medication ?Instructions ?Recorded ?Last Taken ?Type fluticasone propionate 50 1 spray intranasal DAILY haim rtness 03/03/20 Unknown History mcg/actuation nasal of breath spray,suspension (Flonase Allergy Relief) apixaban 5 mg tablet (Eliquis) 5 mg PO BID 07/29/23 History methocarbamol 500 mg tablet 1,000 mg PO TID PRN cramps 07/29/23 08/31/23 History polyethylene glycol 3350 17 17 g PO DAILY PRN constipa tion 07/29/23 07/29/23 History gram/dose oral powder (ClearLax) pantoprazole 40 mg tablet,delayed 40 mg PO DAILY 08/3008/31/23 History release aluminum-mag hydroxide-simethicone 30 ml PO Q6H PRN IA N Gastric 09/13/23 Unknown Rx 400 mg-400 mg-40 mg/5 mL oral susp Burning #0 mL (Mag-Al Plus Extra Strength) amlodipine 10 mg tablet 10 mg PO DAILY #0 tabs 09/12 Unknown Rx carvedilol 12.5 mg tablet 12.5 mg PO BIDCM #0 tabs Unknown Rx diphenhydramine HCl 25 mg capsule 25 mg PO TID PRN PRN Itching #0 09/13/23 Unknown Rx (Banophen) caps peg [id number] 1 1 drp EACH EYE BID #0 mL 09/13/23 Unknown Rx %-0.2 %-0.2 % eye drops (Artificial Tears ([id number])) polysaccharide iron complex 150 mg 150 mg PO DAILY 06/08 Unknown History iron capsule (Ferrex) sennosides 8.6 mg-docusate sodium 2 tab PO BID Constip ation 10/15/23 Unknown History 50 mg tablet (Stool Softener-Stimulant Laxative) insulin lispro 100 unit/mL See Protocol subcut ACHS Unknown History subcutaneous pen (Humalog KwikPen (U-100) Insulin) loratadine 10 mg tablet 10 mg PO DAILY 10/23/23 Unkn own History (Allerclear) albuterol sulfate 2.5 mg/3 mL 2.5 mg inhalation BID Unknown History (0.083 %) solution for nebulization acetaminophen 500 mg tablet 1,000 mg PO TID PRN pain 0 02/09/24 Unknown History furosemide 20 mg tablet 20 mg PO DAILY 02/09/24 Unkn own History arginine 7 gram-glutamine 7 1 ea PO BID 03/22/24 Unkno wn History gram-calcium HMB 1.5 gram oral powder pack (Wiliam) amino acids-protein hydrolysate 15 30 ml PO BID Unknown History gram-100 kcal/30 mL oral liquid (Pro-Stat Sugar Free) ascorbic acid (vitamin C) 500 mg 500 mg PO QDAY Unknown History tablet chlorhexidine gluconate 4 % 1 applic topical .twice a week 03/26/24 Unknown History topical liquid (Hibiclens) dextrose 40 % oral gel (Glucose 10 g PO Q15M 03/26/24 Unknown History Gel) naloxone 0.4 mg/mL injection 0.4 mg IM Q5M PRN opioid reversal 03/26/24 Unknown History syringe ondansetron 4 mg disintegrating 4 mg PO Q4H PRN nausea 03/26/24 Unknown History tablet sodium chloride 0.65 % nasal mist 2 spray intranasal Q 2H PRN dry 03/26/24 Unknown History nasal passages dulaglutide 3 mg/0.5 mL 3 mg subcut QWEEK 07/18/24 U nknown History subcutaneous pen injector (Trulicity) duloxetine 30 mg capsule,delayed 60 mg PO QDAY 5 Unknown History release insulin glargine 100 unit/mL 10 unit subcut DAILY diab etes 07/18/24 Unknown History subcutaneous solution (Lantus mellitus type 2 U-100 Insulin) insulin lispro 100 unit/mL 6 unit subcut TID 07/18/24 Unknown History subcutaneous solution metformin 500 mg tablet 1,000 mg PO QDAY 07/18/24 Un known History fenofibrate 54 mg tablet 54 mg PO DAILY 08/17/24 Unkn own History lorazepam 1 mg tablet 1 mg PO DAILY PRN anxiety Unknown History nystatin 100,000 unit/gram topical topical 08/17/24 Un known History powder cefdinir 300 mg capsule 300 mg PO BID #20 caps 09/07 Unknown Rx metronidazole 500 mg tablet 500 mg PO BID #20 tabs Unknown Rx oxycodone 10 mg tablet 10 mg PO .QID pain 30 days # 120 10/09/24 Unknown Rx tabs morphine 30 mg capsule,extended 30 mg PO Q12H 30 days #60 caps 10/10/24 Unknown Rx release pellets ([place]) Allergy/AdvReac Type Severity Reaction Status Date / Time No Known Allergies Allergy Verified 10/12/24 07:34 Family History Mother Hypertension Hypotension Diabetes Arthritis Father Hypertension Hypotension Heart disease Status post double vessel coronary artery bypass angina Arthritis Grandfather Prostate cancer Grandmother Uterine cancer Surgical History History of hip replacement Colostomy status Hx of spinal surgery H/O sinus surgery 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 History 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 Smoking Status: Former smoker alcohol intake: never substance use type: does not use do you feel safe at home: Yes Vital Signs Vital Signs Vital Signs: 10/12/24 07:28 10/12/24 07:34 10/12/24 07:59 Temperature 98.1 F 98.1 F Temperature Source Axillary Axillary Pulse Rate 103 H 103 H Respiratory Rate 18 18 Respiratory Effort Respiratory Depth Respiratory Pattern Blood Pressure 148/76 H 148/76 H Blood Pressure Mean 100 100 Pulse Ox 98 98 Oxygen Delivery Method Non-Rebreather Non-Rebreather Non-Rebreather Oxygen Flow Rate (L/min) 15 15 15 10/12/24 07:59 10/12/24 08:27 Temperature Temperature Source Pulse Rate 101 H Respiratory Rate 13 Respiratory Effort Normal Non-Labored Respiratory Depth Normal Respiratory Pattern Normal Blood Pressure 154/75 H Blood Pressure Mean 101 Pulse Ox 100 Oxygen Delivery Method High Flow Oxygen Flow Rate (L/min) 10 Weight Weight: 153.2 kg Body Mass Index (BMI) 47.1 Results Lab / Micro Data 10/12/24 07:56 10/12/24 07:56 Labs: Laboratory Results - last 24 hr 10/12/24 07:56: WBC 8.4, RBC 4.24 L, Hgb 9.7 L, Hct 34.8 L, MCV 82.1, MCH 22.9 L , MCHC 27.9 L, RDW Std Deviation 52.8 H, RDW Coeff of Mary 17.6 H, Plt Count 287, MPV 9.5, Immature Gran % (Auto) 1.300 H, Neut % (Auto) 66.3, Lymph % (Auto) 17.5 L, [place] % (Auto) 11.2 H, Eos % (Auto) 3.2, Baso % (Auto) 0.5, Absolute Neuts (auto) 5.6, Absolute Lymphs (auto) 1.47, Nucleated RBC % 0, Sodium 133, Potassium 4.8, Chloride 93 L, Carbon Dioxide 31.3, Anion Gap 9, BUN 20 H, C reatinine 0.59 L, Estim Creat Clear Calc 208.01, Est GFR (MDRD) Non-Af 113, B UN/Creatinine Ratio 34.0 H, Glucose 175 H, Lactic Acid < 1.0, Calcium 8.7, T roponin T High Sens 107 H*, NT pro BNP II 158 Rhythm Strip Rhythm Strip: Sinus Tach Rate: 103 Ectopy: None Imaging Radiology Impression Chest X-Ray 10/12/24 08:00 IMPRESSION: Mild degree of vascular congestion with bibasilar atelectasis and small bilateral effusions slightly more prominent on the right side. Reading Location: [place] [id number]
--- NOTE | 2024-10-12 08:44 | PCM.HP.STD ---
HPI - General General Date of Admission: 10/12/24 Date of Service: 10/12/24 Chief Complaint: Shortness of breath HPI Narrative MELISSA ELIAS, is a 59 M paraplegic following an accidental fall, diabetes mellitus type 2, essential hypertension, currently resident at an extended care facility who presented to the emergency department with shortness of breath.Per patient he had been diagnosed with pneumonia and treated at his extended care facility with oral antibiotics for the past 3 days. Patient was however noted to be significantly hypoxic with oxygen saturation in the 60s on the morning of his admission nurse stating patient being brought to the ED. Patient was diagnosed with acute hypoxic respiratory insufficiency admitted to monitored bed for subsequent management. Further evaluation with CT of the chest was negative for PE however did demonstrate infiltrate consistent with pneumonia. [facility] Medical History VRE (vancomycin resistant enterococcus) culture positive Decubitus ulcer of sacral region, stage 4 Lymphedema BATOOL treated with BiPAP Abscess of back Constipation Pressure ulcer of sacral region Chronic indwelling Campbell catheter Blood loss anemia Clot retention of urine Pressure injury, unstageable, with eschar Bilateral pulmonary embolism Rhabdomyolysis Community acquired pneumonia Hypoglycemia Acute osteomyelitis of spine Former tobacco use Paraplegia Cellulitis of leg without foot, right Anemia BMI greater than 40 Type 2 diabetes mellitus HTN (hypertension) H/o back surgery Home Medications ?Medication ?Instructions ?Recorded ?Last Taken ?Type fluticasone propionate 50 1 spray intranasal DAILY shortness 03/03/20 Unknown History mcg/actuation nasal of breath spray,suspension (Flonase Allergy Relief) apixaban 5 mg tablet (Eliquis) 5 mg PO BID 07/29/23 08/31/23 History methocarbamol 500 mg tablet 1,000 mg PO BID PRN cramps 07/29/23 08/31/23 History polyethylene glycol 3350 17 17 g PO BID constipation 07/29/23 07/29/23 History gram/dose oral powder (ClearLax) pantoprazole 40 mg tablet,delayed 40 mg PO DAILY stomach 08/31/23 08/31/23 History release aluminum-mag hydroxide-simethicone 30 ml PO Q6H PRN PRN Gastric 09/13/23 Unknown Rx 400 mg-400 mg-40 mg/5 mL oral susp Burning #0 mL (Mag-Al Plus Extra Strength) amlodipine 10 mg tablet 10 mg PO DAILY #0 tabs 09/13/23 Unknown Rx carvedilol 12.5 mg tablet 12.5 mg PO BIDCM #0 tabs 09/13/23 Unknown Rx diphenhydramine HCl 25 mg capsule 25 mg PO TID PRN PRN Itching #0 09/13/23 Unknown Rx (Banophen) caps peg [id number] 1 1 drp EACH EYE BID dry eyes #0 mL 09/13/23 Unknown Rx %-0.2 %-0.2 % eye drops (Artificial Tears ([id number])) polysaccharide iron complex 150 mg 150 mg PO .QOD supplement 10/15/23 Unknown History iron capsule (Ferrex) sennosides 8.6 mg-docusate sodium 2 tab PO BID Constipation 10/15/23 Unknown History 50 mg tablet (Stool Softener-Stimulant Laxative) insulin lispro 100 unit/mL See Protocol subcut ACHS blood 10/23/23 Unknown History subcutaneous pen (Humalog KwikPen sugars (U-100) Insulin) loratadine 10 mg tablet 10 mg PO DAILY allergies 10/23/23 Unknown History (Allerclear) albuterol sulfate 2.5 mg/3 mL 2.5 mg inhalation BID wheezing 10/25/23 Unknown History (0.083 %) solution for nebulization furosemide 20 mg tablet 20 mg PO DAILY 02/09/24 Unknown History arginine 7 gram-glutamine 7 1 ea PO BID wound healing 03/22/24 Unknown History gram-calcium HMB 1.5 gram oral powder pack (Wiliam) amino acids-protein hydrolysate 15 30 ml PO BID 03/26/24 Unknown History gram-100 kcal/30 mL oral liquid (Pro-Stat Sugar Free) ascorbic acid (vitamin C) 500 mg 500 mg PO QODAY supplement 03/26/24 Unknown History tablet chlorhexidine gluconate 4 % 1 applic topical .twice a week 03/26/24 Unknown History topical liquid (Hibiclens) dextrose 40 % oral gel (Glucose 10 g PO Q15M PRN hypoglycemia 03/26/24 Unknown History Gel) naloxone 0.4 mg/mL injection 0.4 mg IM Q5M PRN opioid reversal 03/26/24 Unknown History syringe ondansetron 4 mg disintegrating 4 mg PO Q4H PRN nausea 03/26/24 Unknown History tablet sodium chloride 0.65 % nasal mist 2 spray intranasal Q2H PRN dry 03/26/24 Unknown History nasal passages dulaglutide 3 mg/0.5 mL 3 mg subcut QWEEK diabetes 07/18/24 Unknown History subcutaneous pen injector (Trulicity) duloxetine 30 mg capsule,delayed 60 mg PO QDAY 07/18/24 Unknown History release insulin glargine 100 unit/mL 14 unit subcut DAILY diabetes 07/18/24 Unknown History subcutaneous solution (Lantus mellitus type 2 U-100 Insulin) insulin lispro 100 unit/mL 12 unit subcut .ac diabetes 07/18/24 Unknown History subcutaneous solution metformin 500 mg tablet 1,000 mg PO QDAY diabetes 07/18/24 Unknown History fenofibrate 54 mg tablet 54 mg PO QHS cholesterol 08/17/24 Unknown History lorazepam 1 mg tablet 1 mg PO DAILY PRN anxiety 08/17/24 Unknown History nystatin 100,000 unit/gram topical 1 applic topical TID rednes 08/17/24 Unknown History powder cefdinir 300 mg capsule 300 mg PO BID #20 caps 09/07/24 Unknown Rx metronidazole 500 mg tablet 500 mg PO BID #20 tabs 09/07/24 Unknown Rx oxycodone 10 mg tablet 10 mg PO .QID pain 30 days #120 10/09/24 Unknown Rx tabs morphine 30 mg capsule,extended 30 mg PO Q12H pain 30 days #60 caps 10/10/24 Unknown Rx release pellets ([place]) acetaminophen 325 mg capsule 650 mg PO Q6H pain 10/12/24 Unknown History acetic acid 0.25 % irrigation 30 ml irrigation BID suprapubic 10/12/24 Unknown History solution cath amoxicillin 875 mg-potassium 1 tab PO Q12H pneumonia 10/12/24 Unknown History clavulanate 125 mg tablet artificial 1 drp EACH EYE BID PRN dry eyes 10/12/24 Unknown History tears(gvxnocm-yiqbjmkz-opptqgl) 0.1 %-0.3 %-0.2 % eye drops (GenTeal Tears Moderate) azithromycin 250 mg tablet 250 mg PO QMWF wounds 10/12/24 Unknown History glipizide 2.5 mg tablet, extended 2.5 mg PO DAILY diabetes 10/12/24 Unknown History release 24 hr simethicone 80 mg chewable tablet 80 mg PO .ACTID PRN gas 10/12/24 Unknown History (Gas Relief (simethicone)) sodium hypochlorite 0.25 % 1 applic topical BID wound 10/12/24 Unknown History solution (Dakin's Solution) Allergy/AdvReac Type Severity Reaction Status Date / Time No Known Allergies Allergy Verified 10/12/24 07:34 Family History Mother Hypertension Hypotension Diabetes Arthritis Father Hypertension Hypotension Heart disease Status post double vessel coronary artery bypass angina Arthritis Grandfather Prostate cancer Grandmother Uterine cancer Surgical History History of hip replacement Colostomy status Hx of spinal surgery H/O sinus surgery Social History housing: [facility] current occupational status: employed and retired Smoking Status: Former smoker alcohol intake: never substance use type: does not use do you feel safe at home: Yes ROS ROS Narrative GENERAL: denies fever, chills, night sweats, weight loss, anorexia HEENT: denies headache, sinus congestion, or drainage, dysphagia RESPIRATORY: cough, sputum production, shortness of breath, CARDIAC: denies chest pain, palpitations, orthopnea, PND GASTROINTESTINAL: denies abdominal pain, nausea, vomiting, melena, GENITOURINARY: denies dysuria, urgency, frequency, heamaturia EXTREMITY: denies swelling MUSCULOSKELETAL: denies current joint pain or tenderness NEUROLOGIC: denies focal numbness, weakness, tingling HEMATOLOGIC: denies easy bruising and/or hemorrhage INTEGUMENT: denies rashes PSYCHIATRIC: denies suicidal or homicidal ideation Vital Signs Vital Signs Vital Signs: 10/12/24 07:28 10/12/24 07:34 10/12/24 07:59 Temperature 98.1 F 98.1 F Temperature Source Axillary Axillary Pulse Rate 103 H 103 H Respiratory Rate 18 18 Respiratory Effort Respiratory Depth Respiratory Pattern Blood Pressure 148/76 H 148/76 H Blood Pressure Mean 100 100 Pulse Ox 98 98 Oxygen Delivery Method Non-Rebreather Non-Rebreather Non-Rebreather Oxygen Flow Rate (L/min) 15 15 15 10/12/24 07:59 10/12/24 08:27 Temperature Temperature Source Pulse Rate 101 H Respiratory Rate 13 Respiratory Effort Normal Non-Labored Respiratory Depth Normal Respiratory Pattern Normal Blood Pressure 154/75 H Blood Pressure Mean 101 Pulse Ox 100 Oxygen Delivery Method High Flow Oxygen Flow Rate (L/min) 10 Weight Weight: 153.2 kg Body Mass Index (BMI) 47.1 Physical Exam Narrative GENERAL: cooperative HEENT: Atraumatic; normocephalic EYES; Anicteric, Normal Conjunctiva NECK; supple, normal thyroid, RESPIRATORY: Diminished to auscultation CARDIOVASCULAR: Regular S1 S2, GI: soft, normoactive bowel sounds, : No Renal angle tenderness; EXTREMITIES: No edema, no clubbing, MUSCULOSKELETAL: no muscle wasting NEURO: Awake; paraplegic SKIN: Sacral decubitus present on admission PSYCH; Flat affect Results Lab / Micro Data 10/12/24 07:56 10/12/24 07:56 Labs: Laboratory Results - last 24 hr 10/12/24 07:56: WBC 8.4, RBC 4.24 L, Hgb 9.7 L, Hct 34.8 L, MCV 82.1, MCH 22.9 L, MCHC 27.9 L, RDW Std Deviation 52.8 H, RDW Coeff of Mary 17.6 H, Plt Count 287, MPV 9.5, Immature Gran % (Auto) 1.300 H, Neut % (Auto) 66.3, Lymph % (Auto) 17.5 L, [place] % (Auto) 11.2 H, Eos % (Auto) 3.2, Baso % (Auto) 0.5, Absolute Neuts (auto) 5.6, Absolute Lymphs (auto) 1.47, Nucleated RBC % 0, Sodium 133, Potassium 4.8, Chloride 93 L, Carbon Dioxide 31.3, Anion Gap 9, BUN 20 H, Creatinine 0.59 L, Estim Creat Clear Calc 208.01, Est GFR (MDRD) Non-Af 113, BUN/Creatinine Ratio 34.0 H, Glucose 175 H, Lactic Acid < 1.0, Calcium 8.7, Troponin T High Sens 107 H*, NT pro BNP II 158 Rhythm Strip Rhythm Strip: Sinus Tach Rate: 103 Ectopy: None Imaging Radiology Impression Chest X-Ray 10/12/24 08:00 IMPRESSION: Mild degree of vascular congestion with bibasilar atelectasis and small bilateral effusions slightly more prominent on the right side. Reading Location: [facility] Assessment & Plan Assessment/Plan (1) Hypoxia: (2) Pneumonia: PLAN: Plan Patient is a 59-year-old gentleman resident of [facility] brought in with progressive shortness of breath 1. Acute hypoxic respiratory insufficiency ? Secondary to pneumonia admitted to monitored bed for subsequent management. Patient placed on supplemental oxygen titrated to keep saturation greater than 90 2. Pneumonia with suspected MDR's given the fact the patient is resident at [facility] and had failed outpatient. Patient was started on Zosyn as well as azithromycin. Ordered sputum cultures, viral respiratory panel, COVID assay. Also ordered CTA which did show Left lower lobe consolidation as well as patchy infiltrates in both upper lobes and left lower lobe. 3. Acute on chronic congestive heart failure ? Complicating care patient is on p.o. furosemide held started on IV furosemide echo ordered as part of his management. Patient was also placed on strict input and output, low-sodium diet, daily weights 4. History of bilateral pulmonary embolism ? CTA obtained on admission was negative for PE patient is on apixaban discontinued 5. Elevated troponin ? Secondary to demand ischemia from above echo has been ordered to assess for regional wall motion abnormalities. If any abnormalities found on patient echo consultation will be placed to cardiology 6. Diabetes mellitus type 2 ? Patient is on long-acting insulin in addition to scheduled short acting insulin did continue with home regiment. Also placed on 1800 ADA diet in addition to Accu-Cheks ACHS with sliding scale coverage 7. Anemia ? Secondary to chronic disorder monitoring H&H and transfuse if patient becomes symptomatic or hemoglobin falls below 7 8. Unstageable sacral decubitus ? Present on admission consult has been placed to wound care nurse 9. Paraplegia ? Secondary to accidental fall ? Will continue supportive care 10. Class III obesity with BMI of 51.2 ? Complicating care 11. Obstructive sleep apnea ? BiPAP therapy at night 12. Essential tension ? Patient blood pressure remained stable 13. DVT prophylaxis ? Patient already on apixaban Advance planning; did discuss with the patient regarding advanced directives as well as CODE STATUS. Did explain the various scenarios involved ( FULL CODE, DNR CCA, DNR CCA with no intubation, and DNR CC and what each meant) patient elected to remain full code with CPR and intubation if needed. Order was placed. Time spent on discussion 16 minutes. Charges/Coding Multi Select Codes Visit Charges Visit Charges: 04134 Init Hosp Hospitalists' Procedures Procedures: 97182 Advncd Care Plan 30 Min
--- NOTE | 2024-10-12 09:40 | NURSING ---
Patient's wallet locked in med drawer per patient request.
[2024-10-12 11:25] LABS: Troponin T High Sens 2 HR 102 ng/L (<=22)
--- NOTE | 2024-10-12 11:41 | CT_ITS ---
PROCEDURE: CTA CHEST W/WO CONTRAST 10/12/2024 REASON FOR EXAM: SOB TECHNIQUE: CTA axial imaging of the chest with intravenous contrast. Multiplanar and multisequence images were obtained. PATIENT PREPARATION: Per protocol One or more dose reduction techniques were used (e.g., Automated exposure control, adjustment of the mA and/or kV according to patient size, use of iterative reconstruction technique). CONTRAST: Isovue-300 VOLUME: 100 mL RADIATION DOSE SUMMARY: CTDlvol: 18.5 mGy DLP: 655.72 mGycm COMPARISON: Prior study dated October 25, 2023. FINDINGS: Hardware: EKG electrodes are seen. Lymph nodes: Small benign-appearing mediastinal lymph nodes. Mild enlargement of the bilateral perihilar lymph nodes. Heart: Coronary artery calcifications are noted. Thoracic Aorta: No thoracic aortic aneurysm or dissection. Pulmonary Vessels: No evidence of pulmonary embolism. Lungs and Airways: Right lower lobe consolidation. Infiltration in the left lower lobe. Patchy areas of infiltrate in the anterior aspect of the left upper lobe as well as in the right upper lobe. Radiographic follow-up recommended. Pleura: Minimal bilateral pleural effusions. Upper Abdomen: Hepatomegaly and fatty infiltration of the liver. Calcified splenic granulomas. Bones: Degenerative changes of the thoracic spine. Prior fusion of the lower dorsal and lumbar spine with acute kyphosis due to compression fracture of an upper thoracic vertebrae. CT/CTA Chest W/WO Contrast IMPRESSION: Left lower lobe consolidation as well as patchy infiltrates in both upper lobes and left lower lobe. Follow-up recommended. Reading Location: [place] [address]
[2024-10-12] MEDS: Furosemide 40 MG/4 ML Vial IV ×2 (12:15→22:54)
[2024-10-12] MEDS: 0.9% Saline Lock 10 ML Syringe IV ×8 (12:15→23:24)
[2024-10-12] MEDS: HYDROmorphone 1 MG/ML Syringe IV ×3 (12:23→21:18)
[2024-10-12 12:26] LABS: Bedside Glucose 153 mg/dL (74-106)
[2024-10-12] MEDS: Insulin Lispro 100 UNIT/ML INSULN.PEN SC ×3 (13:09→22:43)
[2024-10-12 13:39] LABS: Troponin T High Sens 4 HR 111 ng/L (<=22)
--- NOTE | 2024-10-12 14:34 | CASEMGMT ---
Patient is from [place]. SW met with patient and confirmed his plan is to return to [place] at discharge. Plan: d/c back to [place]. Frannie PARRISH
[2024-10-12] MEDS: oxyCODONE 5 MG Tablet PO ×2 (14:38→20:05)
[2024-10-12] MEDS: Ipratropium/Albuterol Sulfate 3 ML AMPUL.NEB INHALATION ×3 (15:06→23:46)
[2024-10-12] MEDS: Azithromycin 500 MG in 0.9% Normal Saline (250mL Bag) 250 ML 255 MG IV (15:11)
[2024-10-12] MEDS: 0.9% Normal Saline (250mL Bag) 250 ML 15 ML IV (15:12)
[2024-10-12] MEDS: Methocarbamol 500 MG Tablet 1000 MG PO ×2 (16:04→23:24)
--- NOTE | 2024-10-12 16:32 | WOUNDNOTE ---
wound photo: sacrum/ischium
[2024-10-12] MEDS: Piperacil/Tazobactam 3.375 GM in 0.9% Normal Saline (50mL MB+) 50 ML IV ×2 (16:37→22:52)
[2024-10-12] MEDS: Insulin Lispro 100 UNIT/ML INSULN.PEN 12 UNIT SC (17:15)
[2024-10-12] MEDS: Carvedilol 12.5 MG Tablet PO (17:16)
[2024-10-12 17:22] LABS: Bedside Glucose 247 mg/dL (74-106)
--- NOTE | 2024-10-12 22:27 | NURSING ---
Addendum entered by Katiuska Iglesias 10/13/24 02:05: Order verified by Dr. Bentley. Original Note: Patient c/o itching to upper extremities and buttocks. Patient states this is not new and has taken Benadryl for the itching in the past. Consulted Dr. Bentley via secure text, new order for 25mg PO benadryl x1 dose.
[2024-10-12] MEDS: Ondansetron 4 MG/2 ML Vial IV (22:36)
[2024-10-12 22:37] LABS: Bedside Glucose 242 mg/dL (74-106)
[2024-10-12] MEDS: SimETHICONE 80 MG Chewable Tablet PO (22:42)
[2024-10-12] MEDS: APIXABAN 5 MG TABLET PO (22:43)
[2024-10-12] MEDS: Polyethylene Glycol 3350 17 GM PACKET PO (22:55)
[2024-10-12] MEDS: CARBOXYMETHYLCELLULOSE SODIUM 15 ML OPHTH DROPS 1 DRP EACH EYE (22:56)
[2024-10-12] MEDS: Fenofibrate 48 MG Tablet PO (22:59)
[2024-10-12] MEDS: Senna/Docusate Sodium 1 Tablet 2 TABLET PO (22:59)
[2024-10-12] MEDS: DiphenhydrAMINE 25 MG Capsule PO (23:24)
[2024-10-12] MEDS: ACETIC ACID 1,000 ML IRRIG.SOLN 30 ML IRRIGATION (23:36)
[2024-10-13] VITALS (14 sets, daily range): BP systolic 143–161; BP diastolic 72–88; PULSE 82–102; RESP 16–26; TEMP 35.9–37; O2SAT 90–96; BMI 52.4
[2024-10-13] MEDS: 0.9% Saline Lock 10 ML Syringe IV ×9 (00:20→21:15)
[2024-10-13] MEDS: HYDROmorphone 1 MG/ML Syringe IV ×7 (00:20→21:15)
[2024-10-13] MEDS: LORazepam 1 MG Tablet PO (01:56)
[2024-10-13] MEDS: Acetaminophen 325 MG Tablet 650 MG PO ×3 (01:56→20:07)
[2024-10-13] MEDS: oxyCODONE 5 MG Tablet PO ×4 (01:56→20:08)
[2024-10-13] MEDS: Piperacil/Tazobactam 3.375 GM in 0.9% Normal Saline (50mL MB+) 50 ML IV ×3 (05:39→21:15)
[2024-10-13] MEDS: Furosemide 40 MG/4 ML Vial IV ×3 (05:43→21:15)
--- NOTE | 2024-10-13 05:55 | ECHOD_ITS ---
Reason For Study Reason For Study: CONGESTIVE HEART FAILURE Procedure This was a 2D Doppler, Color Flow transthoracic echocardiogram. The study was technically difficult. Limited views were obtained. Patient scanned supine, sitting up right due to shortness of breath and nasuea. Exam performed portable in patient room. Left Ventricle Normal left ventricle. The estimated ejection fraction is 55-60 %. Right Ventricle Moderate hypertrophy of the right ventricle. Mild to moderate global right ventricular systolic dysfunction. Atria Normal left atrium. Normal right atrium. Mitral Valve There is mild mitral annular calcification. Tricuspid Valve Normal tricuspid valve. Aortic Valve The aortic valve is not well visualized in the short axis view. Pulmonic Valve The pulmonic valve is not well visualized. Great Vessels The aortic root is not well visualized. Pericardium/Pleural No pericardial effusion. MMode/2D Measurements & Calculations LVIDd: 4.2 cm IVSd: 1.3 cm LVOT diam: 2.4 cm LVIDs: 2.4 cm LVPWd: 1.6 cm LVOT area: 4.5 cm2 RVDd: 4.3 cm FS: 42.6 % asc Aorta Diam: 3.5 cm LAV(MOD-bp): 31.0 ml LVAd ap4: 29.6 cm2 LAV(MOD-bp) Indexed: 12.3 ml/m2 LVLd ap4: 8.1 cm LAV(MOD-sp2): 30.4 ml EDV(MOD-sp4): 91.4 ml LAV(MOD-sp4): 29.4 ml EDV(sp4-el): 91.2 ml LVAs ap4: 15.0 cm2 LVLs ap4: 6.8 cm ESV(MOD-sp4): 29.5 ml ESV(sp4-el): 28.2 ml EF(MOD-sp4): 67.7 % EF(sp4-el): 69.0 % SV(MOD-sp4): 62.0 ml SV(sp4-el): 63.0 ml Ao sinus diam: 3.6 cm SI(MOD-sp4): 24.6 ml/m2 Ao ST Junction: 3.0 cm LA A4 area: 12.6 cm2 LA dimension(2D): 3.9 cm TAPSE: 2.2 cm RA A4 area: 14.3 cm2 Time Measurements MV dec time: 0.19 sec Doppler Measurements & Calculations MV E max ramo: 85.1 cm/sec Lat Peak E' Ramo: 8.0 cm/sec Med Peak E' Ramo: 8.5 cm/sec E/E' lat: 10.6 E/E' med: 10.1 Ao V2 max: 176.8 cm/sec LV V1 max: 100.3 cm/sec SV(LVOT): 81.1 ml Ao max P.5 mmHg LV V1 max P.0 mmHg Ao V2 mean: 130.8 cm/sec LV V1 mean P.1 mmHg Ao mean P.4 mmHg LV V1 mean: 69.0 cm/sec Ao V2 VTI: 35.8 cm LV V1 VTI: 18.1 cm AV (velocity ratio): 0.51 SYD(I,D): 2.3 cm2 SYD(V,D): 2.5 cm2 PA V2 max: 80.1 cm/sec ECHO/Echo Complete Interpretation Summary The estimated ejection fraction is 55-60 %. Ordering Physician: Torrey Johnson Referring Physician: Rhona Bartlett Performed By: Nabila Haro RDCS
[2024-10-13 06:03] LABS: Absolute Lymphocyte Count 0.81 X10^3/uL (0.83-4.51); Absolute Neutrophil Count 5.3 X10^3/uL (2.0-7.7); Basophil# 0.02 X10^3/uL; Basophil% 0.3 % (0-1); Hematocrit 36.6 % (40-54); Hemoglobin 10.1 g/dL (13.0-16.5); Lymphocyte # 0.81 X10^3/ul (0.83-4.51); Lymphocyte % 12.2 % (19-41); Mean Corp Hgb Conc 27.6 g/dL (32-36); Mean Corpuscular Hgb 22.9 pg (27.0-32.0); Mean Corpuscular Volume 82.8 fL (80-94); Mean Platelet Vol. 9.4 fl (6.2-12.0); Monocyte# 0.47 X10^3/uL; Monocyte% 7.1 % (0-10); NRBC Flagged by Analyzer 0.3 % (0-5); Neutrophil # 5.25 X10^3/uL (2.7-7.7); Neutrophil % 78.9 % (47-70); Platelet Count 312 K/mm3 (150-450); RBC Distribution Width CV 17.2 % (11.6-14.6); Red Blood Count 4.42 M/mm3 (4.6-6.2); White Blood Count 6.7 K/mm3 (4.4-11.0)
[2024-10-13] MEDS: Ipratropium/Albuterol Sulfate 3 ML AMPUL.NEB INHALATION ×5 (07:36→23:04)
[2024-10-13 07:45] LABS: Anion Gap 11 (5-15); BUN 19 mg/dL (4-19); Calcium,Total 8.9 mg/dL (7.6-11.0); Carbon Dioxide 33.1 mmol/L (21.0-32.0); Chloride 93 mmol/L (98-108); EST Glomerular Filtration Rate 107 (>60); Estimated Creatinine Clearance 165.44 ml/min (50-250); Glucose 340 mg/dL (70-99); Potassium 4.7 mmol/L (3.3-5.1); Sodium Level 136 mmol/L (133-145)
[2024-10-13] MEDS: Insulin Lispro 100 UNIT/ML INSULN.PEN SC ×4 (07:47→21:16)
[2024-10-13] MEDS: Insulin Lispro 100 UNIT/ML INSULN.PEN 12 UNIT SC (07:48)
[2024-10-13] MEDS: Ondansetron 4 MG/2 ML Vial IV ×2 (07:54→16:11)
[2024-10-13 08:04] LABS: Phosphorus 3.1 mg/dL (2.7-4.5)
[2024-10-13 08:14] LABS: Bedside Glucose 297 mg/dL (74-106)
--- NOTE | 2024-10-13 09:25 | PN.HOSP_ITS ---
Reason for Visit Reason for Visit: Diagnoses Pneumonia, unspecified organism (10/12/24) Hypoxemia (10/12/24) Subjective Subjective Patient viral respiratory culture came back positive for human metapneumovirus infection. Subsequently placed in ICU Objective Data Objective Data Vital Signs: Vital Signs Temp Pulse Resp BP Pulse Ox O2 Del Method O2 Flow Rate 98.0 F 93 16 153/80 H 90 Airvo 50 10/13/24 08:35 10/13/24 08:35 10/13/24 08:35 10/13/24 08:35 10/13/24 08:41 10/13/24 08:41 10/13/24 07:36 FiO2 50 10/13/24 07:36 Oxygen Flow Rate (L/min) 50 Oxygen Delivery Method Airvo Weight: 152 kg Body Mass Index (BMI) 52.4 Intake & Output: Intake and Output for Last 24 Hours 10/11/24 10/12/24 10/13/24 23:59 23:59 23:59 Intake Total 711.75 / 711.75 50 / 50 Output Total 3450 / 3450 1750 / 1750 Balance -2738.25 / -2738.25 -1700 / -1700 Lab / Micro Data 10/13/24 05:42 10/13/24 05:42 Labs: Laboratory Results - last 24 hr 10/12/24 07:56: D-Dimer Quant (PE/DVT) 0.90 H* 10/12/24 10:00: Troponin T Hi Sens 2 Hr 102 H* 10/12/24 12:08: POC Glucose 153 H 10/12/24 12:50: Troponin T Hi Sens 4Hr 111 H* 10/12/24 17:03: POC Glucose 247 H 10/12/24 22:17: POC Glucose 242 H 10/13/24 05:42: WBC 6.7, RBC 4.42 L, Hgb 10.1 L, Hct 36.6 L, MCV 82.8, MCH 22.9 L, MCHC 27.6 L, RDW Std Deviation 52.0 H, RDW Coeff of Mary 17.2 H, Plt Count 312, MPV 9.4, Immature Gran % (Auto) 1.500 H, Neut % (Auto) 78.9 H, Lymph % (Auto) 12.2 L, [place] % (Auto) 7.1, Eos % (Auto) 0.0, Baso % (Auto) 0.3, Absolute Neuts (auto) 5.3, Absolute Lymphs (auto) 0.81 L, Nucleated RBC % 0.3, Sodium 136, Potassium 4.7, Chloride 93 L, Carbon Dioxide 33.1 H, Anion Gap 11, BUN 19, Creatinine 0.70, Estim Creat Clear Calc 165.44, Est GFR (MDRD) Non-Af 107, B UN/Creatinine Ratio 27.0 H, Glucose 340 H, Calcium 8.9, Phosphorus 3.1, Magnesium 2.0 10/13/24 07:45: POC Glucose 297 H Micro: Microbiology 10/12/24 10:42 Mucosa - Nose Respiratory Panel (PCR) - Final Human [place] 10/12/24 14:52 Urine Catheter - Catheter Legionella Antigen - Final 10/12/24 14:52 Urine Catheter - Catheter Streptococcus pneumoniae Antigen (M - Final 10/12/24 10:40 Mucosa - Nose Coronavirus COVID-19 PCR - Final Radiography Diagnostic Testing: Radiology Impression Chest CTA 10/12/24 11:41 IMPRESSION: Left lower lobe consolidation as well as patchy infiltrates in both upper lobes and left lower lobe. Follow-up recommended. Reading Location: [place] [address] Rhythm Strip Rhythm Strip: Sinus Tach Rate: 103 Ectopy: None Physical Exam Narrative GENERAL: cooperative HEENT: Atraumatic; normocephalic EYES; Anicteric, Normal Conjunctiva NECK; supple, normal thyroid, RESPIRATORY: Diminished to auscultation CARDIOVASCULAR: Regular S1 S2, GI: soft, normoactive bowel sounds, : No Renal angle tenderness; EXTREMITIES: No edema, no clubbing, MUSCULOSKELETAL: no muscle wasting NEURO: Awake; paraplegic SKIN: Sacral decubitus present on admission PSYCH; Flat affect Assessment & Plan Assessment/Plan (1) Hypoxia: (2) Pneumonia: PLAN: Plan Patient is a 59-year-old gentleman [facility] brought in with progressive shortness of breath 1. Acute hypoxic respiratory insufficiency ? Secondary to pneumonia admitted to monitored bed for subsequent management. Patient placed on supplemental oxygen titrated to keep saturation greater than 90 2. Viral pneumonia with suspected superimposed bacterial pneumonia given the fact the patient is resident at extended-care facility and had failed outpatient. Patient was started on Zosyn as well as azithromycin. Ordered sputum cultures, viral respiratory panel, COVID assay. Also ordered CTA which did show Left lower lobe consolidation as well as patchy infiltrates in both upper lobes and left lower lobe. ? 10/13/2024Patient viral respiratory culture came back positive for human metapneumovirus infection. Subsequently placed in ICU 3. Acute on chronic congestive heart failure ? Complicating care patient is on p.o. furosemide held started on IV furosemide echo ordered as part of his management. Patient was also placed on strict input and output, low-sodium diet, daily weights 4. History of bilateral pulmonary embolism ? CTA obtained on admission was negative for PE patient is on apixaban discontinued 5. Elevated troponin ? Secondary to demand ischemia from above echo has been ordered to assess for regional wall motion abnormalities. If any abnormalities found on patient echo consultation will be placed to cardiology 6. Diabetes mellitus type 2 ? Patient is on long-acting insulin in addition to scheduled short acting insulin did continue with home regiment. Also placed on 1800 ADA diet in addition to Accu-Cheks ACHS with sliding scale coverage 7. Anemia ? Secondary to chronic disorder monitoring H&H and transfuse if patient becomes symptomatic or hemoglobin falls below 7 8. Unstageable sacral decubitus ? Present on admission consult has been placed to wound care nurse 9. Paraplegia ? Secondary to accidental fall ? Will continue supportive care 10. Class III obesity with BMI of 51.2 ? Complicating care 11. Obstructive sleep apnea ? BiPAP therapy at night 12. Essential tension ? Patient blood pressure remained stable 13. DVT prophylaxis ? Patient already on apixaban Charges/Coding Visit Charges Inpatient E&M: 96821 Subs Hosp L2
[2024-10-13] MEDS: Azithromycin 500 MG in 0.9% Normal Saline (250mL Bag) 250 ML 255 MG IV (11:06)
[2024-10-13] MEDS: Insulin Glargine-YFGN 100 UNIT/ML Pen 14 UNIT SC (11:42)
[2024-10-13 12:01] LABS: Bedside Glucose 245 mg/dL (74-106)
[2024-10-13] MEDS: Methocarbamol 500 MG Tablet 1000 MG PO (14:02)
[2024-10-13] MEDS: ACETIC ACID 1,000 ML IRRIG.SOLN 30 ML IRRIGATION ×2 (15:10→21:16)
--- NOTE | 2024-10-13 16:42 | NURSING ---
Patient refused dressing to be changed this shift. Patient states wait until I feel better. Education provided to patient regarding risk for infection. Patient acknowledges. Call light within reach.
[2024-10-13] MEDS: Carvedilol 12.5 MG Tablet PO (17:14)
[2024-10-13] MEDS: Juven (unflavored) Packet 1 PACKET PO (17:15)
[2024-10-13 17:35] LABS: Bedside Glucose 266 mg/dL (74-106)
[2024-10-13] MEDS: Polyethylene Glycol 3350 17 GM PACKET PO (21:14)
[2024-10-13] MEDS: Fenofibrate 48 MG Tablet PO (21:15)
[2024-10-13] MEDS: Senna/Docusate Sodium 1 Tablet 2 TABLET PO (21:15)
[2024-10-13] MEDS: APIXABAN 5 MG TABLET PO (21:15)
[2024-10-13 21:47] LABS: Bedside Glucose 250 mg/dL (74-106)
[2024-10-14] VITALS (12 sets, daily range): BP systolic 126–155; BP diastolic 68–88; PULSE 86–99; RESP 16–24; TEMP 36.1–37.2; O2SAT 89–98; BMI 46.2
[2024-10-14] MEDS: oxyCODONE 5 MG Tablet PO ×5 (00:08→23:45)
[2024-10-14] MEDS: 0.9% Saline Lock 10 ML Syringe IV ×3 (01:33→21:01)
[2024-10-14] MEDS: HYDROmorphone 1 MG/ML Syringe IV ×6 (01:33→21:02)
[2024-10-14] MEDS: Methocarbamol 500 MG Tablet 1000 MG PO ×3 (01:34→21:01)
[2024-10-14] MEDS: Ipratropium/Albuterol Sulfate 3 ML AMPUL.NEB INHALATION ×6 (03:22→23:18)
[2024-10-14] MEDS: Furosemide 40 MG/4 ML Vial IV ×3 (05:12→21:01)
[2024-10-14] MEDS: Piperacil/Tazobactam 3.375 GM in 0.9% Normal Saline (50mL MB+) 50 ML IV ×3 (05:13→21:01)
[2024-10-14] MEDS: DAKIN'S SOL HALF STRENGTH (=0.25%) TOPICAL (05:13)
--- NOTE | 2024-10-14 07:36 | PCM.PN.HOSP ---
Reason for Visit Reason for Visit: Diagnoses Pneumonia, unspecified organism (10/12/24) Hypoxemia (10/12/24) Subjective Subjective Patient seen complaining of significant back pain. Patient remains on noninvasive ventilation via Airvo Objective Data Objective Data Vital Signs: Vital Signs Temp Pulse Resp BP Pulse Ox O2 Del Method O2 Flow Rate 98.3 F 95 24 H 151/80 H 94 Airvo 50 10/14/24 05:11 10/14/24 07:16 10/14/24 07:16 10/14/24 05:11 10/14/24 07:16 10/14/24 07:16 10/14/24 07:16 FiO2 56 10/14/24 07:16 Oxygen Flow Rate (L/min) 50 Oxygen Delivery Method Airvo Weight: 150.3 kg Body Mass Index (BMI) 46.2 Intake & Output: Intake and Output for Last 24 Hours 10/12/24 10/13/24 10/14/24 23:59 23:59 23:59 Intake Total 711.75 / 711.75 1482.75 / 1482.75 490 / 490 Output Total 3450 / 3450 4675 / 4675 475 / 475 Balance -2738.25 / -2738.25 -3192.25 / -3192.25 Lab / Micro Data 10/14/24 07:08 10/14/24 07:08 Labs: Laboratory Results - last 24 hr 10/13/24 05:42: Sodium 136, Potassium 4.7, Chloride 93 L, Carbon Dioxide 33.1 H, Anion Gap 11, BUN 19, Creatinine 0.70, Estim Creat Clear Calc 165.44, Est GFR (MDRD) Non-Af 107, BUN/Creatinine Ratio 27.0 H, Glucose 340 H, Calcium 8.9, Phosphorus 3.1, Magnesium 2.0 10/13/24 07:45: POC Glucose 297 H 10/13/24 11:40: POC Glucose 245 H 10/13/24 17:11: POC Glucose 266 H 10/13/24 21:14: POC Glucose 250 H Micro: Microbiology 10/12/24 23:55 Sputum, Expectorated/Coughed Gram Stain - Final 10/12/24 10:42 Mucosa - Nose Respiratory Panel (PCR) - Final Human [place] 10/12/24 14:52 Urine Catheter - Catheter Legionella Antigen - Final 10/12/24 14:52 Urine Catheter - Catheter Streptococcus pneumoniae Antigen (M - Final 10/12/24 10:40 Mucosa - Nose Coronavirus COVID-19 PCR - Final Radiography Diagnostic Testing: Radiology Impression Echocardiogram 10/13/24 05:55 Interpretation Summary The estimated ejection fraction is 55-60 %. Ordering Physician: Torrey Johnson Referring Physician: Rhona Bartlett Performed By: Nabila Haro RDCS Rhythm Strip Rhythm Strip: Sinus Tach Rate: 103 Ectopy: None Physical Exam Narrative GENERAL: cooperative HEENT: Atraumatic; normocephalic EYES; Anicteric, Normal Conjunctiva NECK; supple, normal thyroid, RESPIRATORY: Diminished to auscultation CARDIOVASCULAR: Regular S1 S2, GI: soft, normoactive bowel sounds, : No Renal angle tenderness; EXTREMITIES: No edema, no clubbing, MUSCULOSKELETAL: no muscle wasting NEURO: Awake; paraplegic SKIN: Sacral decubitus present on admission PSYCH; Flat affect Assessment & Plan Assessment/Plan (1) Hypoxia: (2) Pneumonia: PLAN: Plan Patient is a 59-year-old gentleman resident of [facility] brought in with progressive shortness of breath 1. Acute hypoxic respiratory failure. ? Secondary to pneumonia admitted to monitored bed for subsequent management. Patient placed on supplemental oxygen titrated to keep saturation greater than 90 ? 10/14/2024 patient had to be placed on noninvasive ventilation via Airvo plan is to titrate to keep saturation greater than 90 and wean down to nasal cannula prior to patient being assessed for possible disc 2. Viral pneumonia with suspected superimposed bacterial pneumonia given the fact the patient is resident at [facility] and had failed outpatient. Patient was started on Zosyn as well as azithromycin. Ordered sputum cultures, viral respiratory panel, COVID assay. Also ordered CTA which did show Left lower lobe consolidation as well as patchy infiltrates in both upper lobes and left lower lobe. ? 10/13/2024Patient viral respiratory culture came back positive for human metapneumovirus infection. Subsequently placed in ICU 3. Acute on chronic congestive heart failure ? Complicating care patient is on p.o. furosemide held started on IV furosemide echo ordered as part of his management. Patient was also placed on strict input and output, low-sodium diet, daily weights 4. History of bilateral pulmonary embolism ? CTA obtained on admission was negative for PE patient is on apixaban discontinued 5. Elevated troponin ? Secondary to demand ischemia from above echo has been ordered to assess for regional wall motion abnormalities. If any abnormalities found on patient echo consultation will be placed to cardiology 6. Diabetes mellitus type 2 ? Patient is on long-acting insulin in addition to scheduled short acting insulin did continue with home regiment. Also placed on 1800 ADA diet in addition to Accu-Cheks ACHS with sliding scale coverage 7. Anemia ? Secondary to chronic disorder monitoring H&H and transfuse if patient becomes symptomatic or hemoglobin falls below 7 8. Unstageable sacral decubitus ? Present on admission consult has been placed to wound care nurse 9. Paraplegia ? Secondary to accidental fall ? Will continue supportive care 10. Class III obesity with BMI of 51.2 ? Complicating care 11. Obstructive sleep apnea ? BiPAP therapy at night 12. Essential tension ? Patient blood pressure remained stable 13. DVT prophylaxis ? Patient already on apixaban Charges/Coding Visit Charges Inpatient E&M: 89774 Subs Hosp L2
[2024-10-14 07:49] LABS: Absolute Lymphocyte Count 1.24 X10^3/uL (0.83-4.51); Absolute Neutrophil Count 5.4 X10^3/uL (2.0-7.7); Basophil# 0.03 X10^3/uL; Basophil% 0.4 % (0-1); Eosinophil# 0.03 X10^3/uL; Eosinophils% 0.4 % (0-5); Hematocrit 36.7 % (40-54); Hemoglobin 10.1 g/dL (13.0-16.5); Lymphocyte # 1.24 X10^3/ul (0.83-4.51); Lymphocyte % 15.8 % (19-41); Mean Corp Hgb Conc 27.5 g/dL (32-36); Mean Corpuscular Hgb 22.7 pg (27.0-32.0); Mean Corpuscular Volume 82.5 fL (80-94); NRBC Flagged by Analyzer 0.3 % (0-5); Neutrophil % 68.9 % (47-70); Platelet Count 294 K/mm3 (150-450); RBC Distribution Width CV 17.4 % (11.6-14.6); RBC Distribution Width SD 52.2 fl (35.1-43.9); Red Blood Count 4.45 M/mm3 (4.6-6.2); White Blood Count 7.8 K/mm3 (4.4-11.0)
[2024-10-14 08:01] LABS: Anion Gap 12 (5-15); BUN 24 mg/dL (4-19); Calcium,Total 8.5 mg/dL (7.6-11.0); Carbon Dioxide 35.2 mmol/L (21.0-32.0); Chloride 89 mmol/L (98-108); EST Glomerular Filtration Rate 107 (>60); Estimated Creatinine Clearance 164.32 ml/min (50-250); Glucose 202 mg/dL (70-99); Potassium 4.4 mmol/L (3.3-5.1); Sodium Level 137 mmol/L (133-145)
[2024-10-14] MEDS: amLODIPine 10 MG Tablet PO (09:03)
[2024-10-14] MEDS: Pantoprazole Sodium 40 MG Tablet PO (09:04)
[2024-10-14] MEDS: APIXABAN 5 MG TABLET PO ×2 (09:04→21:01)
[2024-10-14] MEDS: Carvedilol 12.5 MG Tablet PO ×2 (09:04→16:22)
[2024-10-14] MEDS: Iron Polysaccharide Complex 150 MG CAPSULE PO (09:04)
[2024-10-14] MEDS: DULoxetine Hcl 60 MG Capsule PO (09:04)
[2024-10-14] MEDS: Senna/Docusate Sodium 1 Tablet 2 TABLET PO ×2 (09:04→21:01)
[2024-10-14] MEDS: Polyethylene Glycol 3350 17 GM PACKET PO ×2 (09:05→21:00)
[2024-10-14] MEDS: ACETIC ACID 1,000 ML IRRIG.SOLN 30 ML IRRIGATION ×2 (09:18→21:02)
[2024-10-14] MEDS: Insulin Lispro 100 UNIT/ML INSULN.PEN SC ×4 (09:18→21:01)
[2024-10-14] MEDS: Insulin Lispro 100 UNIT/ML INSULN.PEN 12 UNIT SC ×3 (09:19→16:21)
[2024-10-14] MEDS: Insulin Glargine-YFGN 100 UNIT/ML Pen 14 UNIT SC (09:19)
[2024-10-14] MEDS: Juven (unflavored) Packet 1 PACKET PO ×2 (09:24→16:22)
[2024-10-14 09:45] LABS: Bedside Glucose 185 mg/dL (74-106)
[2024-10-14] MEDS: Azithromycin 500 MG in 0.9% Normal Saline (250mL Bag) 250 ML 255 MG IV (10:48)
[2024-10-14] MEDS: Furosemide 100 MG/10 ML Vial 80 MG IV (10:48)
[2024-10-14] MEDS: Acetaminophen 325 MG Tablet 650 MG PO ×2 (10:52→19:46)
[2024-10-14 17:34] LABS: Bedside Glucose 177 mg/dL (74-106)
[2024-10-14] MEDS: SimETHICONE 80 MG Chewable Tablet PO (19:46)
[2024-10-14 21:37] LABS: Bedside Glucose 174 mg/dL (74-106)
[2024-10-14] MEDS: Fenofibrate 48 MG Tablet PO (21:47)
[2024-10-14 22:30] LABS: Bedside Glucose 234 mg/dL (74-106)
[2024-10-14] MEDS: Mag Hydrox/Al Hydrox/Simeth 30 ML UDC PO (23:43)
[2024-10-15] VITALS (14 sets, daily range): BP systolic 123–157; BP diastolic 64–89; PULSE 90–105; RESP 18–24; TEMP 36.7–37.3; O2SAT 90–95; BMI 51.3
[2024-10-15] MEDS: HYDROmorphone 1 MG/ML Syringe IV ×6 (01:15→18:59)
[2024-10-15] MEDS: 0.9% Saline Lock 10 ML Syringe IV ×2 (01:15→05:41)
[2024-10-15] MEDS: Ipratropium/Albuterol Sulfate 3 ML AMPUL.NEB INHALATION ×6 (02:32→23:39)
[2024-10-15] MEDS: oxyCODONE 5 MG Tablet PO ×5 (04:08→23:01)
[2024-10-15] MEDS: Acetaminophen 325 MG Tablet 650 MG PO ×3 (04:08→18:59)
[2024-10-15] MEDS: Piperacil/Tazobactam 3.375 GM in 0.9% Normal Saline (50mL MB+) 50 ML IV ×3 (05:41→23:07)
[2024-10-15] MEDS: Furosemide 40 MG/4 ML Vial IV ×3 (05:41→23:10)
[2024-10-15 05:42] LABS: Absolute Lymphocyte Count 1.46 X10^3/uL (0.83-4.51); Basophil# 0.04 X10^3/uL; Basophil% 0.6 % (0-1); Eosinophil# 0.08 X10^3/uL; Eosinophils% 1.2 % (0-5); Hematocrit 36.6 % (40-54); Hemoglobin 10.1 g/dL (13.0-16.5); Lymphocyte # 1.46 X10^3/ul (0.83-4.51); Lymphocyte % 22.1 % (19-41); Mean Corp Hgb Conc 27.6 g/dL (32-36); Mean Corpuscular Hgb 22.4 pg (27.0-32.0); Mean Corpuscular Volume 81.3 fL (80-94); Mean Platelet Vol. 9.8 fl (6.2-12.0); Monocyte# 1.02 X10^3/uL; Monocyte% 15.5 % (0-10); NRBC Flagged by Analyzer 0.3 % (0-5); Neutrophil # 3.97 X10^3/uL (2.7-7.7); Neutrophil % 60.1 % (47-70); Platelet Count 321 K/mm3 (150-450); RBC Distribution Width CV 17.4 % (11.6-14.6); RBC Distribution Width SD 51.4 fl (35.1-43.9); White Blood Count 6.6 K/mm3 (4.4-11.0)
[2024-10-15 06:16] LABS: Anion Gap 10 (5-15); BUN 26 mg/dL (4-19); BUN/Creat Ratio 32.9 RATIO (10-20); Calcium,Total 8.7 mg/dL (7.6-11.0); Chloride 86 mmol/L (98-108); Creatinine, Serum 0.78 mg/dL (0.70-1.20); EST Glomerular Filtration Rate 104 (>60); Estimated Creatinine Clearance 146.52 ml/min (50-250); Glucose 194 mg/dL (70-99); Potassium 3.6 mmol/L (3.3-5.1); Sodium Level 135 mmol/L (133-145)
[2024-10-15] MEDS: Insulin Lispro 100 UNIT/ML INSULN.PEN SC ×4 (08:17→23:28)
[2024-10-15] MEDS: Insulin Lispro 100 UNIT/ML INSULN.PEN 12 UNIT SC ×3 (08:18→17:47)
[2024-10-15] MEDS: Juven (unflavored) Packet 1 PACKET PO ×2 (08:19→17:47)
[2024-10-15] MEDS: Carvedilol 12.5 MG Tablet PO ×2 (08:19→17:47)
[2024-10-15] MEDS: DAKIN'S SOL HALF STRENGTH (=0.25%) TOPICAL (08:20)
[2024-10-15] MEDS: Insulin Glargine-YFGN 100 UNIT/ML Pen 14 UNIT SC (08:20)
[2024-10-15] MEDS: Fluticasone 0.05% 1 SPRAY NASAL.SRY NASAL (08:22)
[2024-10-15] MEDS: Polyethylene Glycol 3350 17 GM PACKET PO ×2 (08:22→23:04)
[2024-10-15] MEDS: CARBOXYMETHYLCELLULOSE SODIUM 15 ML OPHTH DROPS 1 DRP EACH EYE (08:26)
[2024-10-15] MEDS: Senna/Docusate Sodium 1 Tablet 2 TABLET PO ×2 (08:27→23:02)
[2024-10-15] MEDS: ACETIC ACID 1,000 ML IRRIG.SOLN 30 ML IRRIGATION ×2 (08:29→23:10)
[2024-10-15] MEDS: Pantoprazole Sodium 40 MG Tablet PO (08:39)
[2024-10-15] MEDS: amLODIPine 10 MG Tablet PO (08:39)
--- NOTE | 2024-10-15 08:39 | PCM.PN.HOSP ---
Reason for Visit Reason for Visit: Diagnoses Pneumonia, unspecified organism (10/12/24) Hypoxemia (10/12/24) Subjective Subjective Patient remains on Airvo. Plan is to try to wean down to nasal cannula and assess for possible discharge Objective Data Objective Data Vital Signs: Vital Signs Temp Pulse Resp BP Pulse Ox O2 Del Method O2 Flow Rate 99.1 F 105 H 20 H 125/70 H 93 Airvo 40 10/15/24 02:50 10/15/24 06:48 10/15/24 06:48 10/15/24 05:41 10/15/24 06:48 10/15/24 06:48 10/15/24 06:48 FiO2 50 10/15/24 06:48 Oxygen Flow Rate (L/min) 40 Oxygen Delivery Method Airvo Weight: 148.7 kg Body Mass Index (BMI) 51.3 Intake & Output: Intake and Output for Last 24 Hours 10/13/24 10/14/24 10/15/24 23:59 23:59 23:59 Intake Total 1482.75 / 1482.75 965 / 965 655.5 / 655.5 Output Total 4675 / 4675 3425 / 3425 1950 / 1950 Balance -3192.25 / -3192.25 -2460 / -2460 -1294.5 / -1294.5 Lab / Micro Data 10/15/24 05:21 10/15/24 05:21 Labs: Laboratory Results - last 24 hr 10/14/24 09:16: POC Glucose 185 H 10/14/24 11:54: POC Glucose 234 H 10/14/24 16:18: POC Glucose 177 H 10/14/24 20:59: POC Glucose 174 H 10/15/24 05:21: WBC 6.6, RBC 4.50 L, Hgb 10.1 L, Hct 36.6 L, MCV 81.3, MCH 22.4 L, MCHC 27.6 L, RDW Std Deviation 51.4 H, RDW Coeff of Mary 17.4 H, Plt Count 321, MPV 9.8, Immature Gran % (Auto) 0.500, Neut % (Auto) 60.1, Lymph % (Auto) 22.1, [place] % (Auto) 15.5 H, Eos % (Auto) 1.2, Baso % (Auto) 0.6, Absolute Neuts (auto) 4.0, Absolute Lymphs (auto) 1.46, Nucleated RBC % 0.3, Sodium 135, Potassium 3.6, Chloride 86 L, Carbon Dioxide 39.0 H, Anion Gap 10, BUN 26 H, Creatinine 0.78, Estim Creat Clear Calc 146.52, Est GFR (MDRD) Non-Af 104, BUN/Creatinine Ratio 32.9 H, Glucose 194 H, Calcium 8.7 Micro: Microbiology 10/12/24 07:56 Blood Culture (Wb) - Anticubital Left Blood Culture - Preliminary No growth in 48 hours. 10/12/24 08:25 Blood Culture (Wb) - Anticubital Left Blood Culture - Preliminary No growth in 48 hours. 10/12/24 23:55 Sputum, Expectorated/Coughed Gram Stain - Final 10/12/24 10:42 Mucosa - Nose Respiratory Panel (PCR) - Final Human [place] 10/12/24 14:52 Urine Catheter - Catheter Legionella Antigen - Final 10/12/24 14:52 Urine Catheter - Catheter Streptococcus pneumoniae Antigen (M - Final 10/12/24 10:40 Mucosa - Nose Coronavirus COVID-19 PCR - Final Rhythm Strip Rhythm Strip: Sinus Tach Rate: 103 Ectopy: None Physical Exam Narrative GENERAL: cooperative HEENT: Atraumatic; normocephalic EYES; Anicteric, Normal Conjunctiva NECK; supple, normal thyroid, RESPIRATORY: Diminished to auscultation CARDIOVASCULAR: Regular S1 S2, GI: soft, normoactive bowel sounds, : No Renal angle tenderness; EXTREMITIES: No edema, no clubbing, MUSCULOSKELETAL: no muscle wasting NEURO: Awake; paraplegic SKIN: Sacral decubitus present on admission PSYCH; Flat affect Assessment & Plan Assessment/Plan (1) Hypoxia: (2) Pneumonia: PLAN: Plan Patient is a 59-year-old gentleman resident of [facility] brought in with progressive shortness of breath 1. Acute hypoxic respiratory failure. ? Secondary to pneumonia admitted to monitored bed for subsequent management. Patient placed on supplemental oxygen titrated to keep saturation greater than 90 ? 10/14/2024 patient had to be placed on noninvasive ventilation via Airvo plan is to titrate to keep saturation greater than 90 and wean down to nasal cannula prior to patient being assessed for possible discharge ? 10/15/2024; patient remains on Airvo we will attempt to wean down to nasal cannula 2. Viral pneumonia with suspected superimposed bacterial pneumonia given the fact the patient is resident at [facility] and had failed outpatient. Patient was started on Zosyn as well as azithromycin. Ordered sputum cultures, viral respiratory panel, COVID assay. Also ordered CTA which did show Left lower lobe consolidation as well as patchy infiltrates in both upper lobes and left lower lobe. ? 10/13/2024Patient viral respiratory culture came back positive for human metapneumovirus infection. Subsequently placed in ICU 3. Acute on chronic congestive heart failure ? Complicating care patient is on p.o. furosemide held started on IV furosemide echo ordered as part of his management. Patient was also placed on strict input and output, low-sodium diet, daily weights 4. History of bilateral pulmonary embolism ? CTA obtained on admission was negative for PE patient is on apixaban discontinued 5. Elevated troponin ? Secondary to demand ischemia from above echo has been ordered to assess for regional wall motion abnormalities. If any abnormalities found on patient echo consultation will be placed to cardiology 6. Diabetes mellitus type 2 ? Patient is on long-acting insulin in addition to scheduled short acting insulin did continue with home regiment. Also placed on 1800 ADA diet in addition to Accu-Cheks ACHS with sliding scale coverage 7. Anemia ? Secondary to chronic disorder monitoring H&H and transfuse if patient becomes symptomatic or hemoglobin falls below 7 8. Unstageable sacral decubitus ? Present on admission consult has been placed to wound care nurse 9. Paraplegia ? Secondary to accidental fall ? Will continue supportive care 10. Class III obesity with BMI of 51.2 ? Complicating care 11. Obstructive sleep apnea ? BiPAP therapy at night 12. Essential tension ? Patient blood pressure remained stable 13. DVT prophylaxis ? Patient already on apixaban Charges/Coding Visit Charges Inpatient E&M: 30867 Subs Hosp L2
[2024-10-15] MEDS: Azithromycin 500 MG in 0.9% Normal Saline (250mL Bag) 250 ML 255 MG IV (09:00)
[2024-10-15] MEDS: APIXABAN 5 MG TABLET PO ×2 (09:00→23:04)
--- NOTE | 2024-10-15 09:00 | CASEMGMT ---
Discharge Planning Updates sent to [facility]. Dipika Bullard DC Planning Asst.
--- NOTE | 2024-10-15 10:01 | WOUNDNOTE ---
Colostomy appliance changed this am. stoma is very well budded and actually thinks is slightly prolapsed. 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 peristomal skin intact. cleansed with warm water. pat dry. applied a new 2 piece flat [place] appliance with a small amount of stoma paste. pt tolerated well.
[2024-10-15 12:51] LABS: Bedside Glucose 280 mg/dL (74-106)
[2024-10-15] MEDS: Methocarbamol 500 MG Tablet 1000 MG PO (12:52)
[2024-10-15] MEDS: DULoxetine Hcl 60 MG Capsule PO (12:53)
--- NOTE | 2024-10-15 15:15 | CHAPLAIN ---
Type of Pastoral Visit _x__ Initial Visit ___ Follow-up Visit ___ On-call Visit ___ General Patient Visit ___ Spiritual Assessment ___ Family Conference ___ Bereavement ___ Rapid Response ___ Code Blue ___ Other (describe below) Pastoral Care Referral From _x__ Patient ___ Family ___ Nurse ___ Physician ___ Rotary Slicing Machine Operator ___ House Rn ___ Other (describe below) Sacrament/Intervention _x__ Active listening ___ Anointing ___ Amish ___ Bereavement ___ Communion ___ Migdalia exploration ___ _x__ Life review _x__ Prayer ___ Reconciliation ___ Sacrament of Sick _x__ Supportive presence ___ Wedding ___ Other (describe below) Pastoral Comments patient gives update since his last admission; pt speaks of long process of healing from wounds; pt gives some life review and welcomes prayer and presence for support
[2024-10-15] MEDS: Mag Hydrox/Al Hydrox/Simeth 30 ML UDC PO (15:38)
[2024-10-15] MEDS: SimETHICONE 80 MG Chewable Tablet PO (15:40)
[2024-10-15 18:07] LABS: Bedside Glucose 264 mg/dL (74-106)
[2024-10-15] MEDS: MELATONIN 3 MG TABLET PO (23:01)
[2024-10-16] VITALS (13 sets, daily range): BP systolic 118–145; BP diastolic 57–71; PULSE 85–103; RESP 18–22; TEMP 36.5–36.8; O2SAT 91–96; BMI 51.4
[2024-10-16 00:01] LABS: Bedside Glucose 270 mg/dL (74-106)
[2024-10-16] MEDS: Methocarbamol 500 MG Tablet 1000 MG PO ×2 (00:19→13:27)
[2024-10-16] MEDS: Fenofibrate 48 MG Tablet PO (00:25)
[2024-10-16] MEDS: HYDROmorphone 1 MG/ML Syringe IV ×3 (00:34→09:17)
[2024-10-16] MEDS: 0.9% Saline Lock 10 ML Syringe IV ×3 (00:34→05:36)
[2024-10-16] MEDS: Furosemide 40 MG/4 ML Vial IV ×2 (05:36→13:27)
[2024-10-16] MEDS: Piperacil/Tazobactam 3.375 GM in 0.9% Normal Saline (50mL MB+) 50 ML IV ×2 (05:36→13:27)
[2024-10-16] MEDS: SimETHICONE 80 MG Chewable Tablet PO (05:43)
[2024-10-16 06:04] LABS: Absolute Neutrophil Count 3.7 X10^3/uL (2.0-7.7); Basophil# 0.04 X10^3/uL; Basophil% 0.6 % (0-1); Eosinophil# 0.14 X10^3/uL; Eosinophils% 2.1 % (0-5); Hematocrit 33.8 % (40-54); Hemoglobin 9.4 g/dL (13.0-16.5); Lymphocyte % 28.9 % (19-41); Mean Corp Hgb Conc 27.8 g/dL (32-36); Mean Corpuscular Hgb 22.5 pg (27.0-32.0); Mean Corpuscular Volume 80.9 fL (80-94); Mean Platelet Vol. 9.9 fl (6.2-12.0); Monocyte# 0.72 X10^3/uL; NRBC Flagged by Analyzer 0 % (0-5); Neutrophil # 3.72 X10^3/uL (2.7-7.7); Neutrophil % 56.6 % (47-70); Platelet Count 290 K/mm3 (150-450); RBC Distribution Width CV 17.1 % (11.6-14.6); RBC Distribution Width SD 50.3 fl (35.1-43.9); Red Blood Count 4.18 M/mm3 (4.6-6.2); White Blood Count 6.6 K/mm3 (4.4-11.0)
[2024-10-16 06:34] LABS: Anion Gap 12 (5-15); BUN 24 mg/dL (4-19); BUN/Creat Ratio 38.2 RATIO (10-20); Calcium,Total 8.3 mg/dL (7.6-11.0); Carbon Dioxide 37.1 mmol/L (21.0-32.0); Chloride 88 mmol/L (98-108); Creatinine, Serum 0.63 mg/dL (0.70-1.20); EST Glomerular Filtration Rate 111 (>60); Estimated Creatinine Clearance 181.63 ml/min (50-250); Glucose 259 mg/dL (70-99); Potassium 3.4 mmol/L (3.3-5.1); Sodium Level 138 mmol/L (133-145)
[2024-10-16] MEDS: oxyCODONE 5 MG Tablet PO ×3 (06:50→15:16)
[2024-10-16] MEDS: Ipratropium/Albuterol Sulfate 3 ML AMPUL.NEB INHALATION ×3 (08:03→15:40)
[2024-10-16] MEDS: Insulin Lispro 100 UNIT/ML INSULN.PEN 12 UNIT SC ×2 (08:36→11:17)
[2024-10-16] MEDS: Insulin Lispro 100 UNIT/ML INSULN.PEN SC ×2 (08:36→11:17)
[2024-10-16] MEDS: Insulin Glargine-YFGN 100 UNIT/ML Pen 14 UNIT SC (08:37)
[2024-10-16 09:00] LABS: Bedside Glucose 277 mg/dL (74-106)
[2024-10-16] MEDS: Juven (unflavored) Packet 1 PACKET PO (10:06)
[2024-10-16] MEDS: Pantoprazole Sodium 40 MG Tablet PO (10:06)
[2024-10-16] MEDS: Iron Polysaccharide Complex 150 MG CAPSULE PO (10:06)
[2024-10-16] MEDS: Carvedilol 12.5 MG Tablet PO (10:06)
[2024-10-16] MEDS: APIXABAN 5 MG TABLET PO (10:06)
[2024-10-16] MEDS: DULoxetine Hcl 60 MG Capsule PO (10:06)
[2024-10-16] MEDS: Polyethylene Glycol 3350 17 GM PACKET PO (10:06)
[2024-10-16] MEDS: Senna/Docusate Sodium 1 Tablet 2 TABLET PO (10:06)
[2024-10-16] MEDS: amLODIPine 10 MG Tablet PO (10:06)
[2024-10-16] MEDS: DAKIN'S SOL HALF STRENGTH (=0.25%) TOPICAL (10:07)
--- NOTE | 2024-10-16 10:07 | TREXTCAR_ITS ---
Diet Diet Order/Speech Therapy: INPATIENT Hospital Diet / Speech Therapy Order(s) 10/12/24 11:20 Diet: Cardiac: Calorie-Controlled Food consistency:: Regular Liquid Consistency:: Regular/Thin Dietary Modifications:: Consistent Carbohydrate Type of Dietary Supplement:: Wiliam Diet Comments: wiliam w/ breakfast and dinner How many daily calories?: 1999 calorie Routine Orders/Code Status Code Status: Full Code DC O2, CPAP, BIPAP needs Home O2 Discharge instructions: Yes Type of respiratory needs?: Oxygen Oxygen frequency: Continuous Continuous oxygen liters per minute: 7 Wound(s) coccyx: Wound Type: Pressure Injury sacrum: Wound Type: Pressure Injury Dressing Change: Dakins moistened gauze right buttock/ischium: Wound Type: Pressure Injury Dressing Change: Dakins moistened gauze Therapies Physical Therapy: Eval and Treat Occupational Therapy: Eval and Treat Problem/Diagnosis (1) Hypoxia: Status: Acute Code(s): R09.02 - Hypoxemia (2) Pneumonia: Status: Acute Code(s): J18.9 - Pneumonia, unspecified organism Plan Patient is a 59-year-old gentleman resident of [facility] brought in with progressive shortness of breath 1. Acute hypoxic respiratory failure. ? Secondary to pneumonia admitted to monitored bed for subsequent management. Patient placed on supplemental oxygen titrated to keep saturation greater than 90 ? 10/14/2024 patient had to be placed on noninvasive ventilation via Airvo plan is to titrate to keep saturation greater than 90 and wean down to nasal cannula prior to patient being assessed for possible discharge ? 10/15/2024; patient remains on Airvo we will attempt to wean down to nasal cannula 2. Viral pneumonia with suspected superimposed bacterial pneumonia given the fact the patient is resident at [email or web address] and had failed outpatient. Patient was started on Zosyn as well as azithromycin. Ordered sputum cultures, viral respiratory panel, COVID assay. Also ordered CTA which did show Left lower lobe consolidation as well as patchy infiltrates in both upper lobes and left lower lobe. ? 10/13/2024Patient viral respiratory culture came back positive for human metapneumovirus infection. Subsequently placed in ICU 3. Acute on chronic congestive heart failure ? Complicating care patient is on p.o. furosemide held started on IV furosemide echo ordered as part of his management. Patient was also placed on strict input and output, low-sodium diet, daily weights 4. History of bilateral pulmonary embolism ? CTA obtained on admission was negative for PE patient is on apixaban discontinued 5. Elevated troponin ? Secondary to demand ischemia from above echo has been ordered to assess for regional wall motion abnormalities. If any abnormalities found on patient echo consultation will be placed to cardiology 6. Diabetes mellitus type 2 ? Patient is on long-acting insulin in addition to scheduled short acting insulin did continue with home regiment. Also placed on 1800 ADA diet in addition to Accu-Cheks ACHS with sliding scale coverage 7. Anemia ? Secondary to chronic disorder monitoring H&H and transfuse if patient becomes symptomatic or hemoglobin falls below 7 8. Unstageable sacral decubitus ? Present on admission consult has been placed to wound care nurse 9. Paraplegia ? Secondary to accidental fall ? Will continue supportive care 10. Class III obesity with BMI of 51.2 ? Complicating care 11. Obstructive sleep apnea ? BiPAP therapy at night 12. Essential tension ? Patient blood pressure remained stable 13. DVT prophylaxis ? Patient already on apixaban Allergies/Procedures Done in Hospital Allergies No Known Allergies Allergy (Verified 10/12/24 07:34) Type of Care/Length of Stay Estimated LOS: More Than 30 Days Type of Care Needed: Intermediate Rehab Potential: Fair Prognosis: Fair Additional Orders/Day of Discharge Day of Discharge: 10/16/24 Dietary and Speech Recommendations Dietitian Recommendations/Changes: Will continue 2000 calorie Consistent CHO/ Cardiac diet as ordered. Continue wiliam BID with medpass. Will discontinue wiliam BID with breakfast and dinner due to duplicate orders for wiliam. Will monitor weight trends. Discharge Plan Admission Admit Date/Time: 10/12/24 08:43 Attending Provider: Torrey Johnson Primary Care Provider: Rhona Bartlett Discharge Orders/Prescriptions Prescriptions: New amoxicillin-pot clavulanate 875-125 mg tablet 1 tab PO BID 7 Days Qty: 14 0RF Continued fluticasone propionate [Flonase Allergy Relief] 50 mcg/actuation spray,suspension 1 spray INTRANASAL DAILY Patient Comments: takes in once in awhile Rx Instructions: administer into each nostril Wiliam 7-7-1.5 gram powder in packet 1 ea PO BID naloxone 0.4 mg/mL syringe 0.4 mg IM Q5M PRN (Reason: opioid reversal) Rx Instructions: NTExceed 10 mg total dose/episode ondansetron 4 mg tablet,disintegrating 4 mg PO Q4H PRN (Reason: nausea) metformin 500 mg tablet 1,000 mg PO QDAY duloxetine 30 mg capsule,delayed release(DR/EC) 60 mg PO QDAY Pro-Stat Sugar Free 15-100 gram-kcal/30 mL liquid 30 ml PO BID dextrose [Glucose Gel] 40 % gel 10 g PO Q15M PRN (Reason: hypoglycemia) Rx Instructions: until symptoms of low blood sugar are controlled chlorhexidine gluconate [Hibiclens] 4 % liquid 1 applic topical .twice a week Rx Instructions: tuesday and sodium chloride 0.65 % mist 2 spray intranasal Q2H PRN (Reason: dry nasal passages) ascorbic acid (vitamin C) 500 mg tablet 500 mg PO QODAY Trulicity 3 mg/0.5 mL pen injector 3 mg subcut QWEEK Rx Instructions: once a week on Mondays pantoprazole 40 mg tablet,delayed release (DR/EC) 40 mg PO DAILY alum-mag hydroxide-simeth [Mag-Al Plus Extra Strength] 400-400-40 mg/5 mL Suspension 30 ml PO Q6H PRN PRN (Reason: Gastric Burning) Qty: 0 0RF Artificial Tears([id number]) 1-0.2-0.2 % Drops 1 drp EACH EYE BID Qty: 0 0RF carvedilol 12.5 mg Tablet 12.5 mg PO BIDCM Qty: 0 0RF amlodipine 10 mg Tablet 10 mg PO DAILY Qty: 0 0RF diphenhydramine HCl [Banophen] 25 mg Capsule 25 mg PO TID PRN PRN (Reason: Itching) Qty: 0 0RF polysaccharide iron complex [Ferrex 150] 150 mg iron Capsule 150 mg PO .QOD sennosides-docusate sodium [Stool Softener-Stimulant Laxat] 8.6-50 mg Tablet 2 tab PO BID albuterol sulfate 2.5 mg /3 mL (0.083 %) solution for nebulization 2.5 mg inhalation BID Rx Instructions: And q4hr prn methocarbamol 500 mg tablet 1,000 mg PO BID PRN (Reason: cramps) Eliquis 5 mg tablet 5 mg PO BID polyethylene glycol 3350 [ClearLax] 17 gram/dose powder 17 g PO BID insulin glargine [Lantus U-100 Insulin] 100 unit/mL solution 14 unit subcut DAILY insulin lispro 100 unit/mL solution 12 unit subcut .ac loratadine [Allerclear] 10 mg tablet 10 mg PO DAILY Rx Instructions: am insulin lispro [Humalog KwikPen Insulin] 100 unit/mL Insulin Pen See Protocol subcut ACHS Protocol: 6. Sliding Scale Insulin Custom Condition: mg/dl range Dose/Route: Number of Units Condition: 251-350 Dose/Route: 2 Condition: >350 Dose/Route: 4 Protocol Text: Custom Sliding Scale Rx Instructions: 12 units before meals nystatin 100,000 unit/gram powder 1 applic topical TID fenofibrate 54 mg tablet 54 mg PO QHS simethicone [Gas Relief (simethicone)] 80 mg tablet,chewable 80 mg PO .ACTID PRN (Reason: gas) acetic acid 0.25 % solution 30 ml irrigation BID Patient Comments: [NO ORIGINAL SIG] Dakin's Solution 0.25 % solution 1 applic topical BID artificial tear([id number]) [GenTeal Tears Moderate] 0.1-0.3-0.2 % drops 1 drp EACH EYE BID PRN (Reason: dry eyes) acetaminophen 325 mg capsule 650 mg PO Q6H glipizide 2.5 mg tablet extended release 24hr 2.5 mg PO DAILY azithromycin 250 mg tablet 250 mg PO QMWF lorazepam 1 mg tablet 1 mg PO DAILY PRN (Reason: anxiety) Qty: 7 0RF oxycodone 10 mg tablet 10 mg PO .QID 2 Days Qty: 8 0RF morphine [[place]] 30 mg capsule,extend.release pellets 30 mg PO Q12H 30 Days Qty: 60 0RF Changed furosemide 20 mg tablet 40 mg PO BID Qty: 30 0RF Discontinued cefdinir 300 mg capsule 300 mg PO BID Qty: 20 0RF metronidazole 500 mg tablet 500 mg PO BID Qty: 20 0RF amoxicillin-pot clavulanate 875-125 mg tablet 1 tab PO Q12H Rx Instructions: x 10 days. Last dose 10/13/24 Referrals / Follow Up: Rhona Bartlett MD [Primary Care Provider] - Disposition Disposition (needs filled in before D/C Order can be placed): NonSkilled NH/Intermed Care
--- NOTE | 2024-10-16 10:11 | DS.PCM_ITS ---
Providers Date of Admission: 10/12/24 Date of Discharge: 10/16/24 Primary Care Physician: Dr. Rhona Bartlett MD Consultations 10/12/24 10:17 Consult: Onc/Wound/crossbar frame wirer Routine Comment: Reason For Visit: DYSPNEA Diagnosis Discharge Diagnosis (1) Hypoxia: Status: Acute Code(s): R09.02 - Hypoxemia (2) Pneumonia: Status: Acute Code(s): J18.9 - Pneumonia, unspecified organism Plan Patient is a 59-year-old gentleman resident of [facility] brought in with progressive shortness of breath 1. Acute hypoxic respiratory failure. ? Secondary to pneumonia admitted to monitored bed for subsequent management. Patient placed on supplemental oxygen titrated to keep saturation greater than 90 ? 10/14/2024 patient had to be placed on noninvasive ventilation via Airvo plan is to titrate to keep saturation greater than 90 and wean down to nasal cannula prior to patient being assessed for possible discharge ? 10/15/2024; patient remains on Airvo we will attempt to wean down to nasal cannula ? 10/16/2024 the [facility] once his oxygen requirement improved. At the time of discharge patient was requiring 7 L per open 2. Viral pneumonia with suspected superimposed bacterial pneumonia given the fact the patient is resident at [facility] and had failed outpatient. Patient was started on Zosyn as well as azithromycin. Ordered sputum cultures, viral respiratory panel, COVID assay. Also ordered CTA which did show Left lower lobe consolidation as well as patchy infiltrates in both upper lobes and left lower lobe. ? 10/13/2024Patient viral respiratory culture came back positive for human metapneumovirus infection. Subsequently placed in ICU 3. Acute on chronic congestive heart failure ? Complicating care patient is on p.o. furosemide held started on IV furosemide echo ordered as part of his management. Patient was also placed on strict input and output, low-sodium diet, daily weights ? 10/16/2024; 2D echo obtained demonstrated EF of 55 to 60% 4. History of bilateral pulmonary embolism ? CTA obtained on admission was negative for PE patient is on apixaban discontinued 5. Elevated troponin ? Secondary to demand ischemia from above echo has been ordered to assess for regional wall motion abnormalities. If any abnormalities found on patient echo consultation will be placed to cardiology 6. Diabetes mellitus type 2 ? Patient is on long-acting insulin in addition to scheduled short acting insulin did continue with home regiment. Also placed on 1800 ADA diet in addition to Accu-Cheks ACHS with sliding scale coverage 7. Anemia ? Secondary to chronic disorder monitoring H&H and transfuse if patient becomes symptomatic or hemoglobin falls below 7 8. Unstageable sacral decubitus ? Present on admission consult has been placed to wound care nurse 9. Paraplegia ? Secondary to accidental fall ? Will continue supportive care 10. Class III obesity with BMI of 51.2 ? Complicating care 11. Obstructive sleep apnea ? BiPAP therapy at night 12. Essential tension ? Patient blood pressure remained stable 13. DVT prophylaxis ? Patient already on apixaban Medications at Discharge Home Medications fluticasone propionate 50 mcg/actuation nasal spray,suspension (Flonase Allergy Relief) 1 spray intranasal DAILY shortness of breath 03/03/20 apixaban 5 mg tablet (Eliquis) 5 mg PO BID 07/29/23 methocarbamol 500 mg tablet 1,000 mg PO BID PRN cramps 07/29/23 polyethylene glycol 3350 17 gram/dose oral powder (ClearLax) 17 g PO BID constipation 07/29/23 pantoprazole 40 mg tablet,delayed release 40 mg PO DAILY stomach 08/31/23 aluminum-mag hydroxide-simethicone 400 mg-400 mg-40 mg/5 mL oral susp (Mag-Al Plus Extra Strength) 30 ml PO Q6H PRN PRN Gastric Burning #0 mL 09/13/23 amlodipine 10 mg tablet 10 mg PO DAILY #0 tabs 09/13/23 carvedilol 12.5 mg tablet 12.5 mg PO BIDCM #0 tabs 09/13/23 diphenhydramine HCl 25 mg capsule (Banophen) 25 mg PO TID PRN PRN Itching #0 caps 09/13/23 peg [id number] 1 %-0.2 %-0.2 % eye drops (Artificial Tears ([id number])) 1 drp EACH EYE BID dry eyes #0 mL 09/13/23 polysaccharide iron complex 150 mg iron capsule (Ferrex) 150 mg PO .QOD supplement 10/15/23 sennosides 8.6 mg-docusate sodium 50 mg tablet (Stool Softener-Stimulant Laxative) 2 tab PO BID Constipation 10/15/23 insulin lispro 100 unit/mL subcutaneous pen (Humalog KwikPen (U-100) Insulin) See Protocol subcut ACHS blood sugars 10/23/23 loratadine 10 mg tablet (Allerclear) 10 mg PO DAILY allergies 10/23/23 albuterol sulfate 2.5 mg/3 mL (0.083 %) solution for nebulization 2.5 mg inhalation BID wheezing 10/25/23 arginine 7 gram-glutamine 7 gram-calcium HMB 1.5 gram oral powder pack (Wiliam) 1 ea PO BID wound healing 03/22/24 amino acids-protein hydrolysate 15 gram-100 kcal/30 mL oral liquid (Pro-Stat Sugar Free) 30 ml PO BID 03/26/24 ascorbic acid (vitamin C) 500 mg tablet 500 mg PO QODAY supplement 03/26/24 chlorhexidine gluconate 4 % topical liquid (Hibiclens) 1 applic topical .twice a week 03/26/24 dextrose 40 % oral gel (Glucose Gel) 10 g PO Q15M PRN hypoglycemia 03/26/24 naloxone 0.4 mg/mL injection syringe 0.4 mg IM Q5M PRN opioid reversal 03/26/24 ondansetron 4 mg disintegrating tablet 4 mg PO Q4H PRN nausea 03/26/24 sodium chloride 0.65 % nasal mist 2 spray intranasal Q2H PRN dry nasal passages 03/26/24 dulaglutide 3 mg/0.5 mL subcutaneous pen injector (Trulicity) 3 mg subcut QWEEK diabetes 07/18/24 duloxetine 30 mg capsule,delayed release 60 mg PO QDAY 07/18/24 insulin glargine 100 unit/mL subcutaneous solution (Lantus U-100 Insulin) 14 unit subcut DAILY diabetes mellitus type 2 07/18/24 insulin lispro 100 unit/mL subcutaneous solution 12 unit subcut .ac diabetes 07/18/24 metformin 500 mg tablet 1,000 mg PO QDAY diabetes 07/18/24 fenofibrate 54 mg tablet 54 mg PO QHS cholesterol 08/17/24 nystatin 100,000 unit/gram topical powder 1 applic topical TID rednes 08/17/24 morphine 30 mg capsule,extended release pellets ([place]) 30 mg PO Q12H pain 30 days #60 caps 10/10/24 acetaminophen 325 mg capsule 650 mg PO Q6H pain 10/12/24 acetic acid 0.25 % irrigation solution 30 ml irrigation BID suprapubic cath 10/12/24 artificial tears(frpqecz-ngdffxyq-sjhufuc) 0.1 %-0.3 %-0.2 % eye drops (GenTeal Tears Moderate) 1 drp EACH EYE BID PRN dry eyes 10/12/24 azithromycin 250 mg tablet 250 mg PO QMWF wounds 10/12/24 glipizide 2.5 mg tablet, extended release 24 hr 2.5 mg PO DAILY diabetes 10/12/24 simethicone 80 mg chewable tablet (Gas Relief (simethicone)) 80 mg PO .ACTID PRN gas 10/12/24 sodium hypochlorite 0.25 % solution (Dakin's Solution) 1 applic topical BID wound 10/12/24 amoxicillin 875 mg-potassium clavulanate 125 mg tablet 1 tab PO BID 7 days #14 tabs 10/16/24 furosemide 20 mg tablet 40 mg (2 x 20 mg) PO BID #30 tabs 10/16/24 lorazepam 1 mg tablet 1 mg PO DAILY PRN anxiety #7 tabs 10/16/24 oxycodone 10 mg tablet 10 mg PO .QID pain 2 days #8 tabs 10/16/24 Hospital Course Summary of Care Provided Minutes Spent on Discharge: 35 Physical Exam Narrative GENERAL: cooperative HEENT: Atraumatic; normocephalic EYES; Anicteric, Normal Conjunctiva NECK; supple, normal thyroid, RESPIRATORY: Diminished to auscultation CARDIOVASCULAR: Regular S1 S2, GI: soft, normoactive bowel sounds, : No Renal angle tenderness; EXTREMITIES: No edema, no clubbing, MUSCULOSKELETAL: no muscle wasting NEURO: Awake; paraplegic SKIN: Sacral decubitus present on admission PSYCH; Flat affect Weight / BMI Weight Weight: 149 kg Body Mass Index (BMI) 51.4 ABG / Lab / Microbiology Data 10/16/24 05:16 10/16/24 05:16 Laboratory: Laboratory Results - last 24 hr 10/15/24 12:33: POC Glucose 280 H 10/15/24 17:45: POC Glucose 264 H 10/15/24 23:25: POC Glucose 270 H 10/16/24 05:16: WBC 6.6, RBC 4.18 L, Hgb 9.4 L, Hct 33.8 L, MCV 80.9, MCH 22.5 L , MCHC 27.8 L, RDW Std Deviation 50.3 H, RDW Coeff of Mary 17.1 H, Plt Count 290, MPV 9.9, Immature Gran % (Auto) 0.800, Neut % (Auto) 56.6, Lymph % (Auto) 28.9, Starke % (Auto) 11.0 H, Eos % (Auto) 2.1, Baso % (Auto) 0.6, Absolute Neuts (auto) 3.7, Absolute Lymphs (auto) 1.90, Nucleated RBC % 0, Sodium 138, Potassium 3.4, Chloride 88 L, Carbon Dioxide 37.1 H, Anion Gap 12, BUN 24 H, Creatinine 0.63 L, Estim Creat Clear Calc 181.63, Est GFR (MDRD) Non-Af 111, BUN/Creatinine Ratio 38.2 H, Glucose 259 H, Calcium 8.3 10/16/24 08:28: POC Glucose 277 H Microbiology: Microbiology 10/12/24 23:55 Sputum, Expectorated/Coughed Gram Stain - Final 10/12/24 23:55 Sputum, Expectorated/Coughed Respiratory Culture - Final Presumptive C albicans 10/12/24 07:56 Blood Culture (Wb) - Anticubital Left Blood Culture - Preliminary No growth in 48 hours. 10/12/24 08:25 Blood Culture (Wb) - Anticubital Left Blood Culture - Preliminary No growth in 48 hours. 10/12/24 10:42 Mucosa - Nose Respiratory Panel (PCR) - Final [facility] 10/12/24 14:52 Urine Catheter - Catheter Legionella Antigen - Final 10/12/24 14:52 Urine Catheter - Catheter Streptococcus pneumoniae Antigen (M - Final 10/12/24 10:40 Mucosa - Nose Coronavirus COVID-19 PCR - Final D/C Instructions Discharge Diet: 1800 Calorie Control Diet, 8 Cup Fluid Restriction and 2000 mg Sodium Diet Discharge Activity: Return to Normal Activity Call your doctor if you observe: Fever of 101 or Higher, Shortness of breath, Fainting spells and Chest pain DC O2, CPAP, BIPAP Needs Home O2 Discharge instructions: Yes Type of respiratory needs?: Oxygen Oxygen frequency: Continuous Continuous oxygen liters per minute: 7 DC home with Oxygen: Yes Home O2 MD Review: I have reviewed the oxygen testing, and the patient qualifies for home oxygen equipment and portability. The patient is mobile in the home and the community. Meaningful Use Info Meaningful Use Meaningful Use Diagnoses (Choose all that apply): CHF CHF CHARLEE/ARB ordered at discharge?: No Reason CHARLEE/ARB not ordered?: Not indicated Documented LVEF (%): 60 Ischemic Stroke Statin Dosing Therapy Reference: STATIN DOSE THERAPY REFERENCE: * Patients > 75 years receive moderate or high dose statin therapy. * Patients 75 years or YOUNGER should receive HIGH intensity statin dose unless contraindicated. You will be required to document reason for non-treatment if statin daily dose does not meet guidelines. HIGH DOSE STATIN THERAPY DAILY Atorvastatin > than or = to 40 mg Rosuvastatin > than or = to 20 mg Amlodipine + Atorvastatin > than or = to 2.5/40 mg Ezetimibe + Simvastatin 10/80 mg Simvastatin 80mg Discharge Plan Admission Admit Date/Time: 10/12/24 08:43 Attending Provider: Torrey Johnson Primary Care Provider: Rhona Bartlett Discharge Orders/Prescriptions Prescriptions: New amoxicillin-pot clavulanate 875-125 mg tablet 1 tab PO BID 7 Days Qty: 14 0RF Continued fluticasone propionate [Flonase Allergy Relief] 50 mcg/actuation spray,suspension 1 spray INTRANASAL DAILY Patient Comments: takes in once in awhile Rx Instructions: administer into each nostril Wiliam 7-7-1.5 gram powder in packet 1 ea PO BID naloxone 0.4 mg/mL syringe 0.4 mg IM Q5M PRN (Reason: opioid reversal) Rx Instructions: NTExceed 10 mg total dose/episode ondansetron 4 mg tablet,disintegrating 4 mg PO Q4H PRN (Reason: nausea) metformin 500 mg tablet 1,000 mg PO QDAY duloxetine 30 mg capsule,delayed release(DR/EC) 60 mg PO QDAY Pro-Stat Sugar Free 15-100 gram-kcal/30 mL liquid 30 ml PO BID dextrose [Glucose Gel] 40 % gel 10 g PO Q15M PRN (Reason: hypoglycemia) Rx Instructions: until symptoms of low blood sugar are controlled chlorhexidine gluconate [Hibiclens] 4 % liquid 1 applic topical .twice a week Rx Instructions: tuesday and sodium chloride 0.65 % mist 2 spray intranasal Q2H PRN (Reason: dry nasal passages) ascorbic acid (vitamin C) 500 mg tablet 500 mg PO QODAY Trulicity 3 mg/0.5 mL pen injector 3 mg subcut QWEEK Rx Instructions: once a week on Mondays pantoprazole 40 mg tablet,delayed release (DR/EC) 40 mg PO DAILY alum-mag hydroxide-simeth [Mag-Al Plus Extra Strength] 400-400-40 mg/5 mL Suspension 30 ml PO Q6H PRN PRN (Reason: Gastric Burning) Qty: 0 0RF Artificial Tears(ka-nbzv-rvow) 1-0.2-0.2 % Drops 1 drp EACH EYE BID Qty: 0 0RF carvedilol 12.5 mg Tablet 12.5 mg PO BIDCM Qty: 0 0RF amlodipine 10 mg Tablet 10 mg PO DAILY Qty: 0 0RF diphenhydramine HCl [Banophen] 25 mg Capsule 25 mg PO TID PRN PRN (Reason: Itching) Qty: 0 0RF polysaccharide iron complex [Ferrex 150] 150 mg iron Capsule 150 mg PO .QOD sennosides-docusate sodium [Stool Softener-Stimulant Laxat] 8.6-50 mg Tablet 2 tab PO BID albuterol sulfate 2.5 mg /3 mL (0.083 %) solution for nebulization 2.5 mg inhalation BID Rx Instructions: And q4hr prn methocarbamol 500 mg tablet 1,000 mg PO BID PRN (Reason: cramps) Eliquis 5 mg tablet 5 mg PO BID polyethylene glycol 3350 [ClearLax] 17 gram/dose powder 17 g PO BID insulin glargine [Lantus U-100 Insulin] 100 unit/mL solution 14 unit subcut DAILY insulin lispro 100 unit/mL solution 12 unit subcut .ac loratadine [Allerclear] 10 mg tablet 10 mg PO DAILY Rx Instructions: am insulin lispro [Humalog KwikPen Insulin] 100 unit/mL Insulin Pen See Protocol subcut ACHS Protocol: 6. Sliding Scale Insulin Custom Condition: mg/dl range Dose/Route: Number of Units Condition: 251-350 Dose/Route: 2 Condition: >350 Dose/Route: 4 Protocol Text: Custom Sliding Scale Rx Instructions: 12 units before meals nystatin 100,000 unit/gram powder 1 applic topical TID fenofibrate 54 mg tablet 54 mg PO QHS simethicone [Gas Relief (simethicone)] 80 mg tablet,chewable 80 mg PO .ACTID PRN (Reason: gas) acetic acid 0.25 % solution 30 ml irrigation BID Patient Comments: [NO ORIGINAL SIG] Dakin's Solution 0.25 % solution 1 applic topical BID artificial tear(slvsg-ghf-uiq) [GenTeal Tears Moderate] 0.1-0.3-0.2 % drops 1 drp EACH EYE BID PRN (Reason: dry eyes) acetaminophen 325 mg capsule 650 mg PO Q6H glipizide 2.5 mg tablet extended release 24hr 2.5 mg PO DAILY azithromycin 250 mg tablet 250 mg PO QMWF lorazepam 1 mg tablet 1 mg PO DAILY PRN (Reason: anxiety) Qty: 7 0RF oxycodone 10 mg tablet 10 mg PO .QID 2 Days Qty: 8 0RF morphine [[place]] 30 mg capsule,extend.release pellets 30 mg PO Q12H 30 Days Qty: 60 0RF Changed furosemide 20 mg tablet 40 mg PO BID Qty: 30 0RF Discontinued cefdinir 300 mg capsule 300 mg PO BID Qty: 20 0RF metronidazole 500 mg tablet 500 mg PO BID Qty: 20 0RF amoxicillin-pot clavulanate 875-125 mg tablet 1 tab PO Q12H Rx Instructions: x 10 days. Last dose 10/13/24 Referrals / Follow Up: Rhona Bartlett MD [Primary Care Provider] - Within 2 Weeks Disposition Disposition (needs filled in before D/C Order can be placed): NonSkilled NH/Intermed Care Charges/Coding Visit Charges Inpatient E&M: 61237 Disch Hosp >30min
[2024-10-16] MEDS: Fluticasone 0.05% 1 SPRAY NASAL.SRY NASAL (10:12)
[2024-10-16] MEDS: CARBOXYMETHYLCELLULOSE SODIUM 15 ML OPHTH DROPS 1 DRP EACH EYE (10:13)
[2024-10-16] MEDS: ACETIC ACID 1,000 ML IRRIG.SOLN 30 ML IRRIGATION (10:13)
[2024-10-16] MEDS: Azithromycin 500 MG in 0.9% Normal Saline (250mL Bag) 250 ML 255 MG IV (10:17)
--- NOTE | 2024-10-16 11:12 | CASEMGMT ---
Physician would like to discharge patient today. Patient is on 7L of O2. SW contacted [facility] and they cannot take patient on 7L. They would prefer 4-5L. SW notified physician. Physician asked that the nurse try weaning patient to 5L. SW asked RN to do this. Frannie Dang [employer]
--- NOTE | 2024-10-16 11:13 | PHA.DC.MR.R ---
Pharmacy [facility] Reconciliation Pharmacy Service has performed discharge medication reconciliation for this patient. The patient's discharge medication list was reviewed for discrepancies and discrepancies were resolved. Medications at Discharge Home Medications fluticasone propionate 50 mcg/actuation nasal spray,suspension (Flonase Allergy Relief) 1 spray intranasal DAILY shortness of breath 03/03/20 apixaban 5 mg tablet (Eliquis) 5 mg PO BID 07/29/23 methocarbamol 500 mg tablet 1,000 mg PO BID PRN cramps 07/29/23 polyethylene glycol 3350 17 gram/dose oral powder (ClearLax) 17 g PO BID constipation 07/29/23 pantoprazole 40 mg tablet,delayed release 40 mg PO DAILY stomach 08/31/23 aluminum-mag hydroxide-simethicone 400 mg-400 mg-40 mg/5 mL oral susp (Mag-Al Plus Extra Strength) 30 ml PO Q6H PRN PRN Gastric Burning #0 mL 09/13/23 amlodipine 10 mg tablet 10 mg PO DAILY #0 tabs 09/13/23 carvedilol 12.5 mg tablet 12.5 mg PO BIDCM #0 tabs 09/13/23 diphenhydramine HCl 25 mg capsule (Banophen) 25 mg PO TID PRN PRN Itching #0 caps 09/13/23 peg [id number]-lgbqwssm 1 %-0.2 %-0.2 % eye drops (Artificial Tears ([id number])) 1 drp EACH EYE BID dry eyes #0 mL 09/13/23 polysaccharide iron complex 150 mg iron capsule (Ferrex) 150 mg PO .QOD supplement 10/15/23 sennosides 8.6 mg-docusate sodium 50 mg tablet (Stool Softener-Stimulant Laxative) 2 tab PO BID Constipation 10/15/23 insulin lispro 100 unit/mL subcutaneous pen (Humalog KwikPen (U-100) Insulin) See Protocol subcut ACHS blood sugars 10/23/23 loratadine 10 mg tablet (Allerclear) 10 mg PO DAILY allergies 10/23/23 albuterol sulfate 2.5 mg/3 mL (0.083 %) solution for nebulization 2.5 mg inhalation BID wheezing 10/25/23 arginine 7 gram-glutamine 7 gram-calcium HMB 1.5 gram oral powder pack (Wiliam) 1 ea PO BID wound healing 03/22/24 amino acids-protein hydrolysate 15 gram-100 kcal/30 mL oral liquid (Pro-Stat Sugar Free) 30 ml PO BID 03/26/24 ascorbic acid (vitamin C) 500 mg tablet 500 mg PO QODAY supplement 03/26/24 chlorhexidine gluconate 4 % topical liquid (Hibiclens) 1 applic topical .twice a week 03/26/24 dextrose 40 % oral gel (Glucose Gel) 10 g PO Q15M PRN hypoglycemia 03/26/24 naloxone 0.4 mg/mL injection syringe 0.4 mg IM Q5M PRN opioid reversal 03/26/24 ondansetron 4 mg disintegrating tablet 4 mg PO Q4H PRN nausea 03/26/24 sodium chloride 0.65 % nasal mist 2 spray intranasal Q2H PRN dry nasal passages 03/26/24 dulaglutide 3 mg/0.5 mL subcutaneous pen injector (Trulicity) 3 mg subcut QWEEK diabetes 07/18/24 duloxetine 30 mg capsule,delayed release 60 mg PO QDAY 07/18/24 insulin glargine 100 unit/mL subcutaneous solution (Lantus U-100 Insulin) 14 unit subcut DAILY diabetes mellitus type 2 07/18/24 insulin lispro 100 unit/mL subcutaneous solution 12 unit subcut .ac diabetes 07/18/24 metformin 500 mg tablet 1,000 mg PO QDAY diabetes 07/18/24 fenofibrate 54 mg tablet 54 mg PO QHS cholesterol 08/17/24 nystatin 100,000 unit/gram topical powder 1 applic topical TID rednes 08/17/24 morphine 30 mg capsule,extended release pellets ([place]) 30 mg PO Q12H pain 30 days #60 caps 10/10/24 acetaminophen 325 mg capsule 650 mg PO Q6H pain 10/12/24 acetic acid 0.25 % irrigation solution 30 ml irrigation BID suprapubic cath 10/12/24 artificial tears(fkhimot-rvesyzrc-vltvawp) 0.1 %-0.3 %-0.2 % eye drops (GenTeal Tears Moderate) 1 drp EACH EYE BID PRN dry eyes 10/12/24 azithromycin 250 mg tablet 250 mg PO QMWF wounds 10/12/24 glipizide 2.5 mg tablet, extended release 24 hr 2.5 mg PO DAILY diabetes 10/12/24 simethicone 80 mg chewable tablet (Gas Relief (simethicone)) 80 mg PO .ACTID PRN gas 10/12/24 sodium hypochlorite 0.25 % solution (Dakin's Solution) 1 applic topical BID wound 10/12/24 amoxicillin 875 mg-potassium clavulanate 125 mg tablet 1 tab PO BID 7 days #14 tabs 10/16/24 furosemide 20 mg tablet 40 mg (2 x 20 mg) PO BID #30 tabs 10/16/24 lorazepam 1 mg tablet 1 mg PO DAILY PRN anxiety #7 tabs 10/16/24 oxycodone 10 mg tablet 10 mg PO .QID pain 2 days #8 tabs 10/16/24
[2024-10-16 11:53] LABS: Bedside Glucose 294 mg/dL (74-106)
[2024-10-16] MEDS: Acetaminophen 325 MG Tablet 650 MG PO (13:23)
[2024-10-16] MEDS: LORazepam 1 MG Tablet PO (14:44)
--- NOTE | 2024-10-16 14:45 | CASEMGMT ---
Patient is ready for discharge back to [facility]. [facility] is in agreement with patient returning on 5L. Plan: d/c back to [facility] under intermediate level of care. Physicians will transport patient via cot. Frannie PARRISH
--- NOTE | 2024-10-16 14:48 | CASEMGMT ---
Discharge Planning Discharge orders, signed med list, and transport time sent to [facility]. Physicians will transport pt by cot at 3:30p. Nursing, SW, pt, and his sister (Aletha) updated. Dipika Bullard DC Planning Asst.
--- NOTE | 2024-10-16 15:00 | NURSING ---
Report called to ALLAN Casanova. all questions answered at this time.
== END 2024-10-16 16:14 | disposition intermediate care facility (04) | DRG 139 ==
LOC: ED 08:14 → PCU 08:56
PROVIDERS: Admitting Provider Internal Medicine; Emergency Provider Emergency Medicine; PCP Internal Medicine; Visit Provider Internal Medicine
DX: J12.3 Human metapneumovirus pneumonia (principal); J96.01 Acute respiratory failure with hypoxia; I50.33 Acute on chronic diastolic (congestive) heart failure; L89.150 Pressure ulcer of sacral region, unstageable; G82.20 Paraplegia, unspecified; Z68.43 Body mass index [BMI] 50.0-59.9, adult; D63.8 Anemia in other chronic diseases classified elsewhere; I11.0 Hypertensive heart disease with heart failure; Z99.81 Dependence on supplemental oxygen; E11.9 Type 2 diabetes mellitus without complications; Z93.3 Colostomy status; G47.33 Obstructive sleep apnea (adult) (pediatric); Z79.4 Long term (current) use of insulin; Z87.891 Personal history of nicotine dependence; R79.89 Other specified abnormal findings of blood chemistry; Z79.01 Long term (current) use of anticoagulants; Z79.84 Long term (current) use of oral hypoglycemic drugs; E66.813 Obesity, class 3; Z79.85 Long-term (current) use of injectable non-insulin antidiabetic drugs; Z79.899 Other long term (current) drug therapy; Z96.649 Presence of unspecified artificial hip joint; Z86.711 Personal history of pulmonary embolism
CPT/HCPCS: 36415; 71045; 71275; 80048; 82962; 83605; 83735; 83880; 84100; 84484; 85025; 85379; 87040; 87070; 87205; 87449; 87633; 87635; 93005; 93306; 94640; 94660; 94668; 94762; 97802; 99285; Q9957; Q9967; A4216; J1938; J2405

== ENCOUNTER → 2024-10-22 04:00 | Outpatient (REF) | payer MEDICAID, SELFPAY ==
[2024-10-22 07:52] LABS: Absolute Lymphocyte Count 2.51 X10^3/uL (0.83-4.51); Absolute Neutrophil Count 4.1 X10^3/uL (2.0-7.7); Basophil# 0.03 X10^3/uL; Basophil% 0.4 % (0-1); Eosinophil# 0.32 X10^3/uL; Eosinophils% 4.1 % (0-5); Hematocrit 34.2 % (40-54); Lymphocyte # 2.51 X10^3/ul (0.83-4.51); Lymphocyte % 32.2 % (19-41); Mean Corp Hgb Conc 26.3 g/dL (32-36); Mean Corpuscular Hgb 21.9 pg (27.0-32.0); Mean Corpuscular Volume 83.2 fL (80-94); Mean Platelet Vol. 9.9 fl (6.2-12.0); Monocyte# 0.77 X10^3/uL; Monocyte% 9.9 % (0-10); NRBC Flagged by Analyzer 0 % (0-5); Neutrophil % 52.6 % (47-70); Platelet Count 341 K/mm3 (150-450); RBC Distribution Width CV 16.9 % (11.6-14.6); RBC Distribution Width SD 50.5 fl (35.1-43.9); Red Blood Count 4.11 M/mm3 (4.6-6.2); White Blood Count 7.8 K/mm3 (4.4-11.0)
[2024-10-22 08:08] LABS: Anion Gap 8 (5-15); BUN 16 mg/dL (4-19); Calcium,Total 8.9 mg/dL (7.6-11.0); Carbon Dioxide 37.9 mmol/L (21.0-32.0); Chloride 91 mmol/L (98-108); Creatinine, Serum 0.63 mg/dL (0.70-1.20); EST Glomerular Filtration Rate 111 (>60); Glucose 239 mg/dL (70-99); Potassium 4.2 mmol/L (3.3-5.1); Sodium Level 137 mmol/L (133-145)
== END ==
LOC: OLS.WHLEAS 04:00
PROVIDERS: PCP Internal Medicine; Referring Provider Internal Medicine; Visit Provider Internal Medicine
DX: E11.9 Type 2 diabetes mellitus without complications (principal)
CPT/HCPCS: 36415; 80048; 85025

== ENCOUNTER 2024-10-29 10:21 | Inpatient (IN) | payer MEDICAID, SELFPAY ==
[2024-10-29] VITALS (20 sets, daily range): BP systolic 104–151; BP diastolic 58–111; PULSE 97–106; RESP 10–22; TEMP 36.3–37.3; O2SAT 84–95; BMI 51.0; BMI 47.5
[2024-10-29 10:40] LABS: Base Excess 12 mmol/L (-2 to +2); Bicarbonate 37.2 mmol/L (22-26); Blood Gas Specimen Type ART; Mode Not entered; O2 Delivery Device Cannula; PO2 61 mmHG (75-100); SITE R Brach; SO2 89 % (95-99); Total Carbon Dioxide 39 mmol/L; pCO2 66.8 mmHg (35-45); pH 7.35 (7.35-7.45)
--- NOTE | 2024-10-29 10:51 | EKG12_ITS ---
Test Reason : SOB Blood Pressure : */* mmHG Vent. Rate : 103 BPM Atrial Rate : 103 BPM P-R Int : 202 ms QRS Dur : 146 ms QT Int : 382 ms P-R-T Axes : 49 -89 18 degrees QTcB Int : 500 ms Sinus tachycardia Left axis deviation Right bundle branch block Possible Lateral infarct (cited on or before 29-Jul-2023) Abnormal ECG Confirmed by MINOR FRY MD ([id number]), newspaper editor managing CHANDRA GABRIEL ([id number]) on 10/30/2024 10:48:21 AM Referred By: Percy Price Confirmed By: MINOR FRY MD
[2024-10-29] MEDS: 0.9% Normal Saline (1000mL) 1,000 ML 999 ML IV (11:04)
[2024-10-29 11:11] LABS: Absolute Lymphocyte Count 1.79 X10^3/uL (0.83-4.51); Absolute Neutrophil Count 5.7 X10^3/uL (2.0-7.7); Basophil# 0.04 X10^3/uL; Basophil% 0.5 % (0-1); Eosinophils% 3.5 % (0-5); Hematocrit 32.7 % (40-54); Hemoglobin 9.2 g/dL (13.0-16.5); Lymphocyte # 1.79 X10^3/ul (0.83-4.51); Lymphocyte % 20.8 % (19-41); Mean Corp Hgb Conc 28.1 g/dL (32-36); Mean Corpuscular Hgb 23.4 pg (27.0-32.0); Mean Platelet Vol. 9.8 fl (6.2-12.0); Monocyte% 9.3 % (0-10); NRBC Flagged by Analyzer 0 % (0-5); Neutrophil # 5.66 X10^3/uL (2.7-7.7); Neutrophil % 65.6 % (47-70); Platelet Count 264 K/mm3 (150-450); RBC Distribution Width CV 18.5 % (11.6-14.6); RBC Distribution Width SD 53.9 fl (35.1-43.9); Red Blood Count 3.94 M/mm3 (4.6-6.2); White Blood Count 8.6 K/mm3 (4.4-11.0)
[2024-10-29 11:26] LABS: International Normalized Ratio 1.2; Prothrombin Time (Protime)PT. 15.9 SECONDS (11.7-14.9)
[2024-10-29 11:27] LABS: Partial Thromboplast Time 33.6 Seconds (24.1-36.2)
[2024-10-29 11:28] LABS: Mucous, Urine 0 SEEN /hpf (<or=2+); Squamous Epithelial Cells - UA 0 SEEN /hpf (0-5)
[2024-10-29 11:29] LABS: ALB/GLOB Ratio 0.9 RATIO (0.9-2.4); AST(SGOT) 19 U/L (<=37); Alanine Aminotransfer ALT/SGPT 14 U/L (<=46); Albumin, Serum 3.6 g/dL (3.5-5.0); Alkaline Phosphatase 81 U/L (40-129); Anion Gap 8 (5-15); BUN 24 mg/dL (4-19); BUN/Creat Ratio 34.7 RATIO (10-20); Calcium,Total 8.7 mg/dL (7.6-11.0); Carbon Dioxide 38.9 mmol/L (21.0-32.0); Chloride 92 mmol/L (98-108); Creatinine, Serum 0.69 mg/dL (0.70-1.20); EST Glomerular Filtration Rate 108 (>60); Estimated Creatinine Clearance 165.16 ml/min (50-250); Globulin 4.2 g/dL (2.2-4.2); Glucose 237 mg/dL (70-99); Potassium 4.1 mmol/L (3.3-5.1); Protein, Total 7.8 g/dL (5.9-8.4); Sodium Level 139 mmol/L (133-145); Total Bilirubin 0.39 mg/dL (0.00-1.30)
--- NOTE | 2024-10-29 11:30 | RAD_ITS ---
PROCEDURE: CHEST PA AND LATERAL 10/29/2024 REASON FOR EXAM: SOB Hypoxia TECHNIQUE: CHEST PA AND LATERAL COMPARISON: October 12, 2024 FINDINGS: Hardware: Lower thoracic upper lumbar spine fixation hardware. Heart: Normal size. Mediastinum: Normal contour. Atelectasis in the left base is stable chronic fibrosis. Lungs: Airspace consolidation and right pleural effusion in the lower zone of the right chest. Platelike Bones: Marked increased kyphosis just above the level of the fixation rods RAD/Chest PA and Lateral IMPRESSION: Pneumonia and right pleural effusion. Reading [facility]
[2024-10-29 11:33] LABS: Color, Urine Yellow (Yellow); Glucose, Dipstick Normal (Normal); Ketone-Dipstick Negative (Negative); Leukocyte Esterase-Dipstick 500 /ul (Negative); Nitrite-Dipstick Positive (Negative); Occult Blood-Urine 25 /ul (Negative); Protein-Dipstick 100 mg/dl (Negative); Urine Bilirubin Dipstick Negative (Negative); Urine Clarity Clear (Clear); Urine Urobilinogen Normal (Normal)
[2024-10-29 11:42] LABS: Bacteria 1+ /hpf (None Seen); Red Blood Cells-Urine 0-5 SEEN /hpf (0-5); White Blood Cells 0-5 SEEN /hpf (0-5)
[2024-10-29 11:49] LABS: Pro- Brain NATRIURETIC PEPTIDE 108 pg/mL (<=900); Troponin T High Sensitivity 113 ng/L (<=22)
[2024-10-29] MEDS: Piperacil/Tazobactam 4.5 GM in 0.9% Normal Saline (100mL MB+) 100 ML IV (12:51)
--- NOTE | 2024-10-29 12:55 | EX.ED.DYSGE1 ---
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 Patient states that he was recently here for pneumonia and he states that the staff at the facility told him that they are having difficulty maintaining his oxygen level therefore they sent him here for further evaluation management. [facility] Medical History VRE (vancomycin resistant enterococcus) culture positive Decubitus ulcer of sacral region, stage 4 Lymphedema BATOOL treated with BiPAP Abscess of back Constipation Pressure ulcer of sacral region Chronic indwelling Campbell catheter Blood loss anemia Clot retention of urine Pressure injury, unstageable, with eschar Bilateral pulmonary embolism Rhabdomyolysis Community acquired pneumonia Hypoglycemia Acute osteomyelitis of spine Former tobacco use Paraplegia Cellulitis of leg without foot, right Anemia BMI greater than 40 Type 2 diabetes mellitus HTN (hypertension) H/o back surgery Home Medications ?Medication ?Instructions ?Recorded ?Last Taken ?Type fluticasone propionate 50 1 spray intranasal DAILY shortness 03/03/20 Unknown History mcg/actuation nasal of breath spray,suspension (Flonase Allergy Relief) apixaban 5 mg tablet (Eliquis) 5 mg PO BID 07/29/23 08/31/23 History methocarbamol 500 mg tablet 1,000 mg PO BID PRN cramps 07/29/23 08/31/23 History polyethylene glycol 3350 17 17 g PO BID constipation 07/29/23 07/29/23 History gram/dose oral powder (ClearLax) pantoprazole 40 mg tablet,delayed 40 mg PO DAILY stomach 08/31/23 08/31/23 History release aluminum-mag hydroxide-simethicone 30 ml PO Q6H PRN PRN Gastric 09/13/23 Unknown Rx 400 mg-400 mg-40 mg/5 mL oral susp Burning #0 mL (Mag-Al Plus Extra Strength) amlodipine 10 mg tablet 10 mg PO DAILY #0 tabs 09/13/23 Unknown Rx carvedilol 12.5 mg tablet 12.5 mg PO BIDCM #0 tabs 09/13/23 Unknown Rx diphenhydramine HCl 25 mg capsule 25 mg PO TID PRN PRN Itching #0 09/13/23 Unknown Rx (Banophen) caps peg [id number] 1 1 drp EACH EYE BID dry eyes #0 mL 09/13/23 Unknown Rx %-0.2 %-0.2 % eye drops (Artificial Tears ([id number])) polysaccharide iron complex 150 mg 150 mg PO .QOD supplement 10/15/23 Unknown History iron capsule (Ferrex) sennosides 8.6 mg-docusate sodium 2 tab PO BID Constipation 10/15/23 Unknown History 50 mg tablet (Stool Softener-Stimulant Laxative) insulin lispro 100 unit/mL See Protocol subcut ACHS blood 10/23/23 Unknown History subcutaneous pen (Humalog KwikPen sugars (U-100) Insulin) loratadine 10 mg tablet 10 mg PO DAILY allergies 10/23/23 Unknown History (Allerclear) albuterol sulfate 2.5 mg/3 mL 2.5 mg inhalation BID wheezing 10/25/23 Unknown History (0.083 %) solution for nebulization arginine 7 gram-glutamine 7 1 ea PO BID wound healing 03/22/24 Unknown History gram-calcium HMB 1.5 gram oral powder pack (Wiliam) amino acids-protein hydrolysate 15 30 ml PO BID 03/26/24 Unknown History gram-100 kcal/30 mL oral liquid (Pro-Stat Sugar Free) ascorbic acid (vitamin C) 500 mg 500 mg PO QODAY supplement 03/26/24 Unknown History tablet chlorhexidine gluconate 4 % 1 applic topical .twice a week 03/26/24 Unknown History topical liquid (Hibiclens) dextrose 40 % oral gel (Glucose 10 g PO Q15M PRN hypoglycemia 03/26/24 Unknown History Gel) naloxone 0.4 mg/mL injection 0.4 mg IM Q5M PRN opioid reversal 03/26/24 Unknown History syringe ondansetron 4 mg disintegrating 4 mg PO Q4H PRN nausea 03/26/24 Unknown History tablet sodium chloride 0.65 % nasal mist 2 spray intranasal Q2H PRN dry 03/26/24 Unknown History nasal passages dulaglutide 3 mg/0.5 mL 3 mg subcut QWEEK diabetes 07/18/24 Unknown History subcutaneous pen injector (Trulicity) duloxetine 30 mg capsule,delayed 60 mg PO QDAY 07/18/24 Unknown History release insulin glargine 100 unit/mL 14 unit subcut DAILY diabetes 07/18/24 Unknown History subcutaneous solution (Lantus mellitus type 2 U-100 Insulin) insulin lispro 100 unit/mL 12 unit subcut .ac diabetes 07/18/24 Unknown History subcutaneous solution metformin 500 mg tablet 1,000 mg PO QDAY diabetes 07/18/24 Unknown History fenofibrate 54 mg tablet 54 mg PO QHS cholesterol 08/17/24 Unknown History nystatin 100,000 unit/gram topical 1 applic topical TID rednes 08/17/24 Unknown History powder morphine 30 mg capsule,extended 30 mg PO Q12H pain 30 days #60 caps 10/10/24 Unknown Rx release pellets ([place]) acetaminophen 325 mg capsule 650 mg PO Q6H pain 10/12/24 Unknown History acetic acid 0.25 % irrigation 30 ml irrigation BID suprapubic 10/12/24 Unknown History solution cath artificial 1 drp EACH EYE BID PRN dry eyes 10/12/24 Unknown History tears(nybinfx-fxicpqih-eyhwuwv) 0.1 %-0.3 %-0.2 % eye drops (GenTeal Tears Moderate) azithromycin 250 mg tablet 250 mg PO QMWF wounds 10/12/24 Unknown History glipizide 2.5 mg tablet, extended 2.5 mg PO DAILY diabetes 10/12/24 Unknown History release 24 hr simethicone 80 mg chewable tablet 80 mg PO .ACTID PRN gas 10/12/24 Unknown History (Gas Relief (simethicone)) sodium hypochlorite 0.25 % 1 applic topical BID wound 10/12/24 Unknown History solution (Dakin's Solution) amoxicillin 875 mg-potassium 1 tab PO BID 7 days #14 tabs 10/16/24 Unknown Rx clavulanate 125 mg tablet furosemide 20 mg tablet 40 mg (2 x 20 mg) PO BID #30 tabs 10/16/24 Unknown Rx lorazepam 1 mg tablet 1 mg PO DAILY PRN anxiety #7 tabs 10/16/24 Unknown Rx oxycodone 10 mg tablet 5 mg PO .QID pain 10/29/24 Unknown History Allergy/AdvReac Type Severity Reaction Status Date / Time No Known Allergies Allergy Verified 10/12/24 07:34 Family History Mother Hypertension Hypotension Diabetes Arthritis Father Hypertension Hypotension Heart disease Status post double vessel coronary artery bypass angina Arthritis Grandfather Prostate cancer Grandmother Uterine cancer Surgical History History of hip replacement Colostomy status Hx of spinal surgery H/O sinus surgery Social History housing: halfway current occupational status: employed and retired Smoking Status: Former smoker alcohol intake: never substance use type: does not use do you feel safe at home: Yes ROS ROS ED ROS Narrative Constitutional: Denies fevers, chills, headaches, lightheadedness or dizziness Eyes: Denies change in vision double vision blurry vision Cardiovascular: Denies chest pain or palpitations Respiratory: Complains of mild cough denies shortness of breath Abdomen: Denies abdominal pain nausea vomit diarrhea : Denies urinary symptoms Neurological: Denies new numbness, wheeze, tingling Musculoskeletal: Denies back pain Skin: Denies any rashes or lesions EXAM Physical Exam Narrative Exam Narrative: General: Patient is lying in bed rest comfortably did not appear to be in acute distress Head: Atraumatic, normocephalic Eyes: PERRL bilaterally, EOMI bilateral, no conjunctival injection noted Neck: Soft, supple, trachea midline Cardiovascular: Patient tachycardic with regular rhythm Respiratory: Diminished breath sounds bilaterally Abdomen: Soft, nondistended, no tenderness palpation Neurological: Patient follow commands knew that he was at [facility] years 2024 Skin: Warm, dry, intact Const Vital Signs: 10/29/24 10:22 10/29/24 10:22 10/29/24 10:27 Temperature 98.4 F 98.4 F Temperature Source Oral Oral Pulse Rate 106 H 102 H Respiratory Rate 21 H 20 H Respiratory Effort Respiratory Depth Respiratory Pattern Blood Pressure 121/71 H 129/111 H Blood Pressure Mean 87 117 Pulse Ox 84 87 92 Oxygen Delivery Method Nasal Cannula High Flow High Flow Oxygen Flow Rate (L/min) 6 8 8 Fraction of Inspired Oxygen (FIO2) 10/29/24 10:31 10/29/24 10:51 10/29/24 10:51 Temperature Temperature Source Pulse Rate 101 H Respiratory Rate 15 Respiratory Effort Normal Respiratory Depth Normal Respiratory Pattern Normal Blood Pressure 122/71 H Blood Pressure Mean 88 Pulse Ox 95 Oxygen Delivery Method High Flow High Flow Room Air Oxygen Flow Rate (L/min) 8 8 Fraction of Inspired Oxygen (FIO2) 10/29/24 11:09 10/29/24 11:27 10/29/24 12:00 Temperature 98.6 F 98.1 F Temperature Source Oral Oral Pulse Rate 101 H 98 Respiratory Rate 16 16 Respiratory Effort Respiratory Depth Respiratory Pattern Blood Pressure 130/77 H 104/79 Blood Pressure Mean 94 87 Pulse Ox 92 91 91 Oxygen Delivery Method Nasal Cannula High Flow High Flow Oxygen Flow Rate (L/min) 6 8 8 Fraction of Inspired Oxygen (FIO2) 10/29/24 13:00 10/29/24 13:41 10/29/24 14:00 Temperature 98.1 F 98.2 F 98 F Temperature Source Oral Oral Pulse Rate 100 99 99 Respiratory Rate 18 12 22 H Respiratory Effort Respiratory Depth Respiratory Pattern Blood Pressure 120/71 120/71 112/58 L Blood Pressure Mean 87 87 76 Pulse Ox 90 93 88 Oxygen Delivery Method High Flow High Flow Oxygen Flow Rate (L/min) 6 6 Fraction of Inspired Oxygen (FIO2) 10/29/24 14:15 10/29/24 14:23 Temperature Temperature Source Pulse Rate 99 Respiratory Rate 20 H Respiratory Effort Respiratory Depth Respiratory Pattern Blood Pressure Blood Pressure Mean Pulse Ox 94 93 Oxygen Delivery Method Bi-pap Oxygen Flow Rate (L/min) Fraction of Inspired Oxygen (FIO2) 40 40 MDM MDM MDM Narrative Medical decision making narrative: Patient is a 59-year-old male who presented to the emergency department the chief complaint of hypoxia despite being on his nasal cannula. On the differential diagnosis includes but not limited to ACS, pneumothorax, pneumonia, PE although do feel that this is less likely as he is chronically anticoagulated on Eliquis. Once workup is obtained reviewed he will be reevaluated. Patient will not be given 30 cc/kg bolus of IV fluids as concern for hypervolemic state he will be given 1 L of IV fluids. Patient's CBC reviewed showed no evidence leukocytosis white blood count normal 8.6, hemoglobin is 9.2 which is stable, platelet count 264. Patient INR normal at 1.2, PT of 15.9 he is on Eliquis, patient's ABG reviewed showed a pH 7.35 with a pCO2 of 66.8. Patient sodium was 139, potassium normal 4.1, creatinine was 0.69. Patient AST and ALT were 19 and 14 respectively. Patient troponin was 113 with a delta troponin pending. Patient's EKG reviewed and showed sinus tachycardia with evidence of right bundle branch block this was compared to EKG from October 12, 2024 which at that point in time also showed evidence of right bundle branch block and is largely unchanged. Patient's proBNP was 108. Patient's urinalysis reviewed showed positive nitrate 500 leukocyte esterase 0-5 white cells with 1+ bacteria this will be sent for culture. Patient's chest x-ray reviewed by myself and by radiology which showed pneumonia and a right pleural effusion. Lactic acid was 2. Given the patient's pneumonia increasing oxygen requirements will discuss case with hospitalist for admission. Patient will be given vancomycin and Zosyn at 12:32 PM Called and spoke with hospitalist Dr. Price who is requesting to place the patient on BiPAP for his elevated CO2 level, repeat a CT chest and reevaluating. I reviewed the patient's CT chest and appears that the patient has dense consolidation in the right lower lobe questional prominence of the right hilum narrowing of the right interlobar artery radiographic follow-up recommended coronary artery calcifications noted. Reach back out to hospitalist Dr. Price who states that he will except patient for admission. Patient notified is agreeable to plan all question concerns answered. Lab Data Labs: Laboratory Results - last 24 hr 10/29/24 10/29/24 10/29/24 10:33 11:20 12:24 WBC 8.6 RBC 3.94 L Hgb 9.2 L Hct 32.7 L MCV 83.0 MCH 23.4 L MCHC 28.1 L RDW Std Deviation 53.9 H RDW Coeff of Mary 18.5 H Plt Count 264 MPV 9.8 Immature Gran % (Auto) 0.300 Neut % (Auto) 65.6 Lymph % (Auto) 20.8 [place] % (Auto) 9.3 Eos % (Auto) 3.5 Baso % (Auto) 0.5 Absolute Neuts (auto) 5.7 Absolute Lymphs (auto) 1.79 Nucleated RBC % 0 PT 15.9 H INR 1.2 APTT 33.6 Sodium 139 Potassium 4.1 Chloride 92 L Carbon Dioxide 38.9 H Anion Gap 8 BUN 24 H Creatinine 0.69 L Estim Creat Clear Calc 165.16 Est GFR (MDRD) Non-Af 108 BUN/Creatinine Ratio 34.7 H Glucose 237 H Lactic Acid 2.0 Calcium 8.7 Total Bilirubin 0.39 AST 19 ALT 14 Alkaline Phosphatase 81 Troponin T High Sens 113 H* Troponin T Hi Sens 2 Hr 109 H* NT pro BNP II 108 Total Protein 7.8 Albumin 3.6 Globulin 4.2 Albumin/Globulin Ratio 0.9 Urine Color Yellow Urine Clarity Clear Urine pH 6.0 Ur Specific [place] 1.010 Urine Protein 100 H Urine Glucose (UA) Normal Urine Ketones Negative Urine Occult Blood 25 H Urine Nitrite Positive H Urine Bilirubin Negative Urine Urobilinogen Normal Ur Leukocyte Esterase 500 H Urine RBC 0-5 SEEN Urine WBC 0-5 SEEN Ur Squamous Epith Cells 0 SEEN Urine Bacteria 1+ Urine Mucus 0 SEEN ABG Data ABG results: ABG 10/29/24 10:36 Specimen Type ART Sample Site R Brach pH 7.35 Bicarbonate Actual 37.2 H Total CO2 39 Base Excess 12 H O2 Saturation 89 L O2 % 8.0 ABG pCO2 66.8 H ABG pO2 61 L O2 Delivery Device Cannula Vent Mode Not entered Radiography Diagnostic Testing: Clinical Impression(s) from Imaging Studies Chest X-Ray 10/29/24 11:30 IMPRESSION: Pneumonia and right pleural effusion. Reading [facility] Chest CT 10/29/24 14:08 IMPRESSION: Coronary artery calcification (CAC) is is present Dense consolidation in the right lower lobe. Questionable prominence of the right hilum with narrowing of the right interlobar artery. Radiographic follow-up recommended. [facility] Chief Complaint: Shortness of Breath ED Provider: Ibrahima Kolb Dx/Rx/DC Orders Clinical Impression: Acute and chronic respiratory failure with hypoxia, Type 2 diabetes mellitus, History of paraplegia, Pleural effusion, Pneumonia Prescriptions: No Action fluticasone propionate [Flonase Allergy Relief] 50 mcg/actuation spray,suspension 1 spray INTRANASAL DAILY Patient Comments: takes in once in awhile Rx Instructions: administer into each nostril Wiliam 7-7-1.5 gram powder in packet 1 ea PO BID naloxone 0.4 mg/mL syringe 0.4 mg IM Q5M PRN (Reason: opioid reversal) Rx Instructions: NTExceed 10 mg total dose/episode ondansetron 4 mg tablet,disintegrating 4 mg PO Q4H PRN (Reason: nausea) metformin 500 mg tablet 1,000 mg PO QDAY duloxetine 30 mg capsule,delayed release(DR/EC) 60 mg PO QDAY Pro-Stat Sugar Free 15-100 gram-kcal/30 mL liquid 30 ml PO BID dextrose [Glucose Gel] 40 % gel 10 g PO Q15M PRN (Reason: hypoglycemia) Rx Instructions: until symptoms of low blood sugar are controlled chlorhexidine gluconate [Hibiclens] 4 % liquid 1 applic topical .twice a week Rx Instructions: tuesday and sodium chloride 0.65 % mist 2 spray intranasal Q2H PRN (Reason: dry nasal passages) ascorbic acid (vitamin C) 500 mg tablet 500 mg PO QODAY Trulicity 3 mg/0.5 mL pen injector 3 mg subcut QWEEK Rx Instructions: once a week on Mondays pantoprazole 40 mg tablet,delayed release (DR/EC) 40 mg PO DAILY alum-mag hydroxide-simeth [Mag-Al Plus Extra Strength] 400-400-40 mg/5 mL Suspension 30 ml PO Q6H PRN PRN (Reason: Gastric Burning) Qty: 0 0RF Artificial Tears([id number]) 1-0.2-0.2 % Drops 1 drp EACH EYE BID Qty: 0 0RF carvedilol 12.5 mg Tablet 12.5 mg PO BIDCM Qty: 0 0RF amlodipine 10 mg Tablet 10 mg PO DAILY Qty: 0 0RF diphenhydramine HCl [Banophen] 25 mg Capsule 25 mg PO TID PRN PRN (Reason: Itching) Qty: 0 0RF polysaccharide iron complex [Ferrex 150] 150 mg iron Capsule 150 mg PO .QOD sennosides-docusate sodium [Stool Softener-Stimulant Laxat] 8.6-50 mg Tablet 2 tab PO BID albuterol sulfate 2.5 mg /3 mL (0.083 %) solution for nebulization 2.5 mg inhalation BID Rx Instructions: And q4hr prn oxycodone 10 mg tablet 5 mg PO .QID methocarbamol 500 mg tablet 1,000 mg PO BID PRN (Reason: cramps) Eliquis 5 mg tablet 5 mg PO BID polyethylene glycol 3350 [ClearLax] 17 gram/dose powder 17 g PO BID insulin glargine [Lantus U-100 Insulin] 100 unit/mL solution 14 unit subcut DAILY insulin lispro 100 unit/mL solution 12 unit subcut .ac loratadine [Allerclear] 10 mg tablet 10 mg PO DAILY Rx Instructions: am insulin lispro [Humalog KwikPen Insulin] 100 unit/mL Insulin Pen See Protocol subcut ACHS Protocol: 6. Sliding Scale Insulin Custom Condition: mg/dl range Dose/Route: Number of Units Condition: 251-350 Dose/Route: 2 Condition: >350 Dose/Route: 4 Protocol Text: Custom Sliding Scale Rx Instructions: 12 units before meals nystatin 100,000 unit/gram powder 1 applic topical TID fenofibrate 54 mg tablet 54 mg PO QHS simethicone [Gas Relief (simethicone)] 80 mg tablet,chewable 80 mg PO .ACTID PRN (Reason: gas) acetic acid 0.25 % solution 30 ml irrigation BID Patient Comments: [NO ORIGINAL SIG] Dakin's Solution 0.25 % solution 1 applic topical BID artificial tear([id number]) [GenTeal Tears Moderate] 0.1-0.3-0.2 % drops 1 drp EACH EYE BID PRN (Reason: dry eyes) acetaminophen 325 mg capsule 650 mg PO Q6H glipizide 2.5 mg tablet extended release 24hr 2.5 mg PO DAILY azithromycin 250 mg tablet 250 mg PO QMWF amoxicillin-pot clavulanate 875-125 mg tablet 1 tab PO BID 7 Days Qty: 14 0RF furosemide 20 mg tablet 40 mg PO BID Qty: 30 0RF lorazepam 1 mg tablet 1 mg PO DAILY PRN (Reason: anxiety) Qty: 7 0RF morphine [[place]] 30 mg capsule,extend.release pellets 30 mg PO Q12H 30 Days Qty: 60 0RF Primary Care Provider: Rhona Bartlett Referrals: Rhona Bartlett MD [Primary Care Provider] - Print Language: Telugu Disposition Disposition: Acute Care Hospital [facility]
[2024-10-29 13:07] LABS: Troponin T High Sens 2 HR 109 ng/L (<=22)
[2024-10-29] MEDS: Acetaminophen 500 MG Tablet 1000 MG PO (13:46)
[2024-10-29] MEDS: Vancomycin HCl 2,000 MG in 0.9% Normal Saline (500mL Bag) 500 ML 250 MG IV (13:50)
--- NOTE | 2024-10-29 14:08 | CT_ITS ---
PROCEDURE: CHEST WITHOUT CONTRAST 10/29/2024 REASON FOR EXAM: PNEUMONIA TECHNIQUE: Chest CT without contrast. Coronal and Sagittal reconstruction series were provided. One or more dose reduction techniques were used (e.g., Automated exposure control, adjustment of the mA and/or kV according to patient size, use of iterative reconstruction technique RADIATION DOSE SUMMARY: CTDlvol: 19.75 mGy DLP: 631.53 mGycm COMPARISON: Prior chest radiograph done earlier in the day as well as prior CT scan of the chest dated October 12, 2024. FINDINGS: Hardware: None Partially calcified nodule in the in the inferior pole of the left lobe of the thyroid. Lymph nodes: Multiple small mediastinal lymph nodes most likely reactive in nature. Calcified subcarinal lymph node. Heart and Vasculature: Cardiomegaly. No pericardial effusion. Coronary Artery Calcifications: Present Lungs and Airways: Dense consolidation in the right lower lobe as well as in the posterior aspect of the right upper lobe. Narrowing of the right intermediate stem bronchus. I can not rule out a right hilar mass on the unenhanced CT scan examination. Radiographic follow-up recommended. Mild increased markings in the left upper lobe. Pleura: Minimal right pleural effusion. Upper Abdomen: Sludge or gallstone seen in the dependent portion of the gallbladder lumen. Calcified splenic granulomas. Bones: Prior fusion of the thoracic vertebrae. CT/Chest without Contrast IMPRESSION: Coronary artery calcification (CAC) is is present Dense consolidation in the right lower lobe. Questionable prominence of the ri ght hilum with narrowing of the right interlobar artery. Radiographic follow-up recommended. Reading Location: [facility]
--- NOTE | 2024-10-29 14:30 | PCM.HP.STD ---
HPI - General General Date of Admission: 10/29/24 Date of Service: 10/29/24 Chief Complaint: Worsening hypoxia HPI Narrative MELISSA ELIAS, is a 59 M who presented to [facility] ED on 10/29/2024 from SNF for worsening hypoxia. Patient was recently hospitalized here from 10/12-10/16 for acute hypoxic respiratory failure secondary to human metapneumovirus infection with concern for superimposed bacterial pneumonia and acute on chronic heart failure. Medical history significant for paraplegia, class III obesity, BATOOL, chronic anemia and type 2 diabetes. His oxygen requirements improved with treatment then and he was discharged to SNF on 5 L nasal cannula. He came back to the ED today for worsening hypoxia noted by nursing staff, though patient denied any worsening shortness of breath at rest. Was requiring 8 L high flow nasal cannula in the ED to maintain appropriate oxygen saturations. CT chest showed a dense consolidation in the right lower lobe new from previous CT chest at the end of September. ABG showed pH 7.35, pCO2 66. Patient was placed on BiPAP with some improvement in oxygenation and hospitalist was contacted for admission. I saw the patient at bedside in the ED. He was still wearing BiPAP when I saw him and was tolerating this without issue. Has history of BATOOL and wears BiPAP at night. Denies any chest pain or discomfort currently. Does report an ongoing productive cough with yellowish sputum production over the past several days. Denies any fevers or chills. No other acute concerns currently. Will be admitted for further management. [facility] Medical History VRE (vancomycin resistant enterococcus) culture positive Decubitus ulcer of sacral region, stage 4 Lymphedema BATOOL treated with BiPAP Abscess of back Constipation Pressure ulcer of sacral region Chronic indwelling Campbell catheter Blood loss anemia Clot retention of urine Pressure injury, unstageable, with eschar Bilateral pulmonary embolism Rhabdomyolysis Community acquired pneumonia Hypoglycemia Acute osteomyelitis of spine Former tobacco use Paraplegia Cellulitis of leg without foot, right Anemia BMI greater than 40 Type 2 diabetes mellitus HTN (hypertension) H/o back surgery Home Medications ?Medication ?Instructions ?Recorded ?Last Taken ?Type fluticasone propionate 50 1 spray intranasal DAILY shortness 03/03/20 Unknown History mcg/actuation nasal of breath spray,suspension (Flonase Allergy Relief) apixaban 5 mg tablet (Eliquis) 5 mg PO BID 07/29/23 08/31/23 History methocarbamol 500 mg tablet 1,000 mg PO BID PRN cramps 07/29/23 08/31/23 History polyethylene glycol 3350 17 17 g PO BID constipation 07/29/23 07/29/23 History gram/dose oral powder (ClearLax) pantoprazole 40 mg tablet,delayed 40 mg PO DAILY stomach 08/31/23 08/31/23 History release aluminum-mag hydroxide-simethicone 30 ml PO Q6H PRN PRN Gastric 09/13/23 Unknown Rx 400 mg-400 mg-40 mg/5 mL oral susp Burning #0 mL (Mag-Al Plus Extra Strength) amlodipine 10 mg tablet 10 mg PO DAILY #0 tabs 09/13/23 Unknown Rx carvedilol 12.5 mg tablet 12.5 mg PO BIDCM #0 tabs 09/13/23 Unknown Rx diphenhydramine HCl 25 mg capsule 25 mg PO TID PRN PRN Itching #0 09/13/23 Unknown Rx (Banophen) caps peg [id number] 1 1 drp EACH EYE BID dry eyes #0 mL 09/13/23 Unknown Rx %-0.2 %-0.2 % eye drops (Artificial Tears ([id number])) polysaccharide iron complex 150 mg 150 mg PO .QOD supplement 10/15/23 Unknown History iron capsule (Ferrex) sennosides 8.6 mg-docusate sodium 2 tab PO BID Constipation 10/15/23 Unknown History 50 mg tablet (Stool Softener-Stimulant Laxative) insulin lispro 100 unit/mL See Protocol subcut ACHS blood 10/23/23 Unknown History subcutaneous pen (Humalog KwikPen sugars (U-100) Insulin) loratadine 10 mg tablet 10 mg PO DAILY allergies 10/23/23 Unknown History (Allerclear) albuterol sulfate 2.5 mg/3 mL 2.5 mg inhalation BID wheezing 10/25/23 Unknown History (0.083 %) solution for nebulization arginine 7 gram-glutamine 7 1 ea PO BID wound healing 03/22/24 Unknown History gram-calcium HMB 1.5 gram oral powder pack (Wiliam) amino acids-protein hydrolysate 15 30 ml PO BID 03/26/24 Unknown History gram-100 kcal/30 mL oral liquid (Pro-Stat Sugar Free) ascorbic acid (vitamin C) 500 mg 500 mg PO QODAY supplement 03/26/24 Unknown History tablet chlorhexidine gluconate 4 % 1 applic topical .twice a week 03/26/24 Unknown History topical liquid (Hibiclens) unknown dextrose 40 % oral gel (Glucose 10 g PO Q15M PRN hypoglycemia 03/26/24 Unknown History Gel) naloxone 0.4 mg/mL injection 0.4 mg IM Q5M PRN opioid reversal 03/26/24 Unknown History syringe ondansetron 4 mg disintegrating 4 mg PO Q4H PRN nausea 03/26/24 Unknown History tablet sodium chloride 0.65 % nasal mist 2 spray intranasal Q2H PRN dry 03/26/24 Unknown History nasal passages dulaglutide 3 mg/0.5 mL 3 mg subcut QWEEK diabetes 07/18/24 Unknown History subcutaneous pen injector (Trulicity) duloxetine 30 mg capsule,delayed 60 mg PO QDAY mood 07/18/24 10/28/24 History release insulin glargine 100 unit/mL 14 unit subcut DAILY diabetes 07/18/24 Unknown History subcutaneous solution (Lantus mellitus type 2 U-100 Insulin) insulin lispro 100 unit/mL 12 unit subcut .ac diabetes 07/18/24 Unknown History subcutaneous solution metformin 500 mg tablet 1,000 mg PO BID diabetes 07/18/24 Unknown History fenofibrate 54 mg tablet 54 mg PO QHS cholesterol 08/17/24 Unknown History nystatin 100,000 unit/gram topical 1 applic topical TID rednes 08/17/24 Unknown History powder morphine 30 mg capsule,extended 30 mg PO Q12H pain 30 days #60 caps 10/10/24 Unknown Rx release pellets ([place]) acetaminophen 325 mg capsule 650 mg PO Q6H pain 10/12/24 Unknown History acetic acid 0.25 % irrigation 30 ml irrigation BID suprapubic 10/12/24 Unknown History solution cath artificial 1 drp EACH EYE BID PRN dry eyes 10/12/24 Unknown History tears(npidevx-syrlesqe-miguqvt) 0.1 %-0.3 %-0.2 % eye drops (GenTeal Tears Moderate) glipizide 2.5 mg tablet, extended 2.5 mg PO DAILY diabetes 10/12/24 Unknown History release 24 hr simethicone 80 mg chewable tablet 80 mg PO .ACTID PRN gas 10/12/24 Unknown History (Gas Relief (simethicone)) sodium hypochlorite 0.25 % 1 applic topical BID wound 10/12/24 Unknown History solution (Dakin's Solution) furosemide 20 mg tablet 40 mg (2 x 20 mg) PO BID #30 tabs 10/16/24 Unknown Rx lorazepam 1 mg tablet 1 mg PO DAILY PRN anxiety #7 tabs 10/16/24 Unknown Rx oxycodone 10 mg tablet 5 mg PO .QID pain 10/29/24 Unknown History Allergy/AdvReac Type Severity Reaction Status Date / Time No Known Allergies Allergy Verified 10/12/24 07:34 Family History Mother Hypertension Hypotension Diabetes Arthritis Father Hypertension Hypotension Heart disease Status post double vessel coronary artery bypass angina Arthritis Grandfather Prostate cancer Grandmother Uterine cancer Surgical History History of hip replacement Colostomy status Hx of spinal surgery H/O sinus surgery Social History housing: custodial current occupational status: employed and retired Smoking Status: Former smoker alcohol intake: never substance use type: does not use do you feel safe at home: Yes ROS Constitutional Constitutional: Reports fatigue; Denies chills, fever(s) or weakness Eyes Eyes: Denies change in vision Cardiovascular Cardiovascular: Denies chest pain, edema or lightheadedness Respiratory/Chest Respiratory/Chest: Reports cough and productive cough; Denies shortness of breath at rest or wheezing Gastrointestinal Gastrointestinal: Denies abdominal pain Genitourinary Genitourinary: Denies dysuria Musculoskeletal Musculoskeletal: Denies arthralgias or myalgias Vital Signs Vital Signs Vital Signs: 10/29/24 10:22 10/29/24 10:22 10/29/24 10:27 Temperature 98.4 F 98.4 F Temperature Source Oral Oral Pulse Rate 106 H 102 H Respiratory Rate 21 H 20 H Respiratory Effort Respiratory Depth Respiratory Pattern Blood Pressure 121/71 H 129/111 H Blood Pressure Mean 87 117 Pulse Ox 84 87 92 Oxygen Delivery Method Nasal Cannula High Flow High Flow Oxygen Flow Rate (L/min) 6 8 8 Fraction of Inspired Oxygen (FIO2) 10/29/24 10:31 10/29/24 10:51 10/29/24 10:51 Temperature Temperature Source Pulse Rate 101 H Respiratory Rate 15 Respiratory Effort Normal Respiratory Depth Normal Respiratory Pattern Normal Blood Pressure 122/71 H Blood Pressure Mean 88 Pulse Ox 95 Oxygen Delivery Method High Flow High Flow Room Air Oxygen Flow Rate (L/min) 8 8 Fraction of Inspired Oxygen (FIO2) 10/29/24 11:09 10/29/24 11:27 10/29/24 12:00 Temperature 98.6 F 98.1 F Temperature Source Oral Oral Pulse Rate 101 H 98 Respiratory Rate 16 16 Respiratory Effort Respiratory Depth Respiratory Pattern Blood Pressure 130/77 H 104/79 Blood Pressure Mean 94 87 Pulse Ox 92 91 91 Oxygen Delivery Method Nasal Cannula High Flow High Flow Oxygen Flow Rate (L/min) 6 8 8 Fraction of Inspired Oxygen (FIO2) 10/29/24 13:00 10/29/24 13:41 10/29/24 14:00 Temperature 98.1 F 98.2 F 98 F Temperature Source Oral Oral Pulse Rate 100 99 99 Respiratory Rate 18 12 22 H Respiratory Effort Respiratory Depth Respiratory Pattern Blood Pressure 120/71 120/71 112/58 L Blood Pressure Mean 87 87 76 Pulse Ox 90 93 88 Oxygen Delivery Method High Flow High Flow Oxygen Flow Rate (L/min) 6 6 Fraction of Inspired Oxygen (FIO2) 10/29/24 14:15 10/29/24 14:23 Temperature Temperature Source Pulse Rate 99 Respiratory Rate 20 H Respiratory Effort Respiratory Depth Respiratory Pattern Blood Pressure Blood Pressure Mean Pulse Ox 94 93 Oxygen Delivery Method Bi-pap Oxygen Flow Rate (L/min) Fraction of Inspired Oxygen (FIO2) 40 40 Weight Weight: 148 kg Body Mass Index (BMI) 51.0 Physical Exam Const alert, oriented x3 and no apparent distress Constitutional Narrative: Upper middle-aged male, class III obesity, mildly fatigued appearing but otherwise sitting back comfortably in bed, breathing comfortably on BiPAP, answering questions with short appropriate responses, in no acute distress. General Appearance: cooperative and comfortable HEENT normocephalic, head/scalp atraumatic, hearing grossly normal bilaterally, nasal mucous membranes and turbinates normal and moist oral mucous membranes Eyes PERRL, EOMs intact bilaterally and conjunctivae normal Neck full ROM Chest inspection of chest normal Resp normal respiratory effort and no use of accessory muscles Resp Narrative: Breathing comfortably on BiPAP at rest. Diminished breath sounds particularly in right lung base with mild basilar crackles noted. No wheezing noted. Cardio no murmurs and peripheral pulses 2+ throughout Cardio Narrative: Tachycardic, regular rhythm. GI normal to inspection, nondistended, normoactive bowel sounds, soft to palpation, non-tender and non-distended Back/Spine normal ROM Extremity Extremity Narrative: Paraplegic. Skin Skin Narrative: Nursing staff reported sacral ulcer without signs of acute infection. Neuro Speech: speech normal Motor Exam: strength 5/5 throughout Psych mental status grossly normal Results Lab / Micro Data 10/29/24 10:33 10/29/24 10:33 Labs: Laboratory Results - last 24 hr 10/29/24 10:33: WBC 8.6, RBC 3.94 L, Hgb 9.2 L, Hct 32.7 L, MCV 83.0, MCH 23.4 L, MCHC 28.1 L, RDW Std Deviation 53.9 H, RDW Coeff of Mary 18.5 H, Plt Count 264, MPV 9.8, Immature Gran % (Auto) 0.300, Neut % (Auto) 65.6, Lymph % (Auto) 20.8, [place] % (Auto) 9.3, Eos % (Auto) 3.5, Baso % (Auto) 0.5, Absolute Neuts (auto) 5.7, Absolute Lymphs (auto) 1.79, Nucleated RBC % 0, PT 15.9 H, INR 1.2, APTT 33.6, Sodium 139, Potassium 4.1, Chloride 92 L, Carbon Dioxide 38.9 H, Anion Gap 8, BUN 24 H, Creatinine 0.69 L, Estim Creat Clear Calc 165.16, Est GFR (MDRD) Non-Af 108, BUN/Creatinine Ratio 34.7 H, Glucose 237 H, Lactic Acid 2.0, Calcium 8.7, Total Bilirubin 0.39, AST 19, ALT 14, Alkaline Phosphatase 81, Troponin T High Sens 113 H*, NT pro BNP II 108, Total Protein 7.8, Albumin 3.6, Globulin 4.2, Albumin/Globulin Ratio 0.9 10/29/24 11:20: Urine Color Yellow, Urine Clarity Clear, Urine pH 6.0, Ur Specific [place] 1.010, Urine Protein 100 H, Urine Glucose (UA) Normal, Urine Ketones Negative, Urine Occult Blood 25 H, Urine Nitrite Positive H, Urine Bilirubin Negative, Urine Urobilinogen Normal, Ur Leukocyte Esterase 500 H, Urine RBC 0-5 SEEN, Urine WBC 0-5 SEEN, Ur Squamous Epith Cells 0 SEEN, Urine Bacteria 1+, Urine Mucus 0 SEEN 10/29/24 12:24: Troponin T Hi Sens 2 Hr 109 H* Micro: Microbiology 10/29/24 11:04 Mucosa - Nose SARS-CoV-2, Influenza & RSV (PCR) - Final ABG Data ABG results: ABG 10/29/24 10:36 Specimen Type ART Sample Site R Brach pH 7.35 Bicarbonate Actual 37.2 H Total CO2 39 Base Excess 12 H O2 Saturation 89 L O2 % 8.0 ABG pCO2 66.8 H ABG pO2 61 L O2 Delivery Device Cannula Vent Mode Not entered Imaging Radiology Impression Chest X-Ray 10/29/24 11:30 IMPRESSION: Pneumonia and right pleural effusion. [facility] Assessment & Plan Assessment/Plan (1) Acute on chronic respiratory failure with hypoxia and hypercapnia: (2) Pneumonia: PLAN: Plan Patient is a 59-year-old male who presented [facility] ED on 10/29/2024 with worsening hypoxia. 1. Acute on chronic hypoxic and hypercapnic respiratory failure in setting of suspected healthcare associated pneumonia versus mucous plugging with atelectasis ? Admit under inpatient status to PCU. Pulmonology consulted. Recent hospitalization for viral pneumonia secondary to human metapneumovirus with concern for concomitant bacterial pneumonia and HFpEF exacerbation. Treated with IV antibiotics and diuresis with improvement. Was able to be discharged to SNF on 5 L nasal cannula. Requiring 8 L high flow nasal cannula on admit to maintain appropriate oxygen saturations. CT chest showed dense consolidation in right lower lobe new from previous CT chest in late September. Has had productive cough with yellowish sputum. However, denies fevers/chills or other infectious symptoms and no leukocytosis on labs. May be healthcare associated ammonia but cannot rule out mucous plugging with atelectasis from poor clearance of secretions. Will treat with IV vancomycin and Zosyn for now. Infectious workup pending. Will also treat with I-S, chest physiotherapy, Mucinex and scheduled DuoNebs. Wean supplemental oxygen as able. Appreciate pulmonology recommendations. 2. Acute on chronic debility with history of paraplegia ? PT/OT/case management consulted. Was discharged to SNF for rehab after recent hospitalization. Suspect patient will need to go back to SNF on this discharge. Appreciate therapy recommendations. 3. Elevated troponins in setting of chronic HFpEF, hypertension, hyperlipidemia, history of VTE ? Troponin trend 113 > 109 > 105. No EKG changes noted. Strongly suspect demand ischemia in setting of respiratory failure as noted above. Continue home amlodipine, Coreg, Lasix and fenofibrate. Continue home Eliquis. 4. Type 2 diabetes mellitus ? Last A1c 7.9% in July. Blood glucose 237 on admit. Holding home p.o. medications. Will treat with Lantus 15 units at night, Humalog 5 units plus sliding scale insulin with meals, adjust as needed. 5. History of sacral ulcer ? Had unstageable sacral ulcer noted on documentation during previous visits. Treat with appropriate offloading management while here. Can consider wound care consult as needed. 6. Class III obesity with BATOOL ? BMI 47 on admit. Complicates hospital course, care and prognosis. Continue CPAP at night. DVT prophylaxis: Not indicated, on Eliquis CODE STATUS: Full code, verified Expected disposition: TBD Total clinical time spent by myself addressing the patient's medical issues, reviewing all the data, and collaborating with patient's care team: 75 minutes. Charges/Coding Visit Charges Inpatient E&M: 04138 Init Hosp L3
[2024-10-29 15:06] LABS: Reflex Lactate? Y
[2024-10-29 15:13] LABS: Troponin T High Sens 4 HR 105 ng/L (<=22)
[2024-10-29 16:36] LABS: Lactic Acid 1.6 mmol/L (0.0-2.0)
--- NOTE | 2024-10-29 16:41 | CASEMGMT ---
Social Work SW spoke with patient who confirmed he is living at [facility] and plans to return there when medically ready. Jessy Thompson, TYPESETTER PERFORATOR OPERATOR, CLOTH BLEACHING SUPERVISOR
--- NOTE | 2024-10-29 17:10 | PCM.RX.CS ---
Consult Antibiotic Management Pharmacy has been consulted to manage selected antibiotic: Vancomycin Type of Intervention Type of Consult: Follow-up Suspected Infection Suspected Infection: Pneumonia Labs Labs: Sodium 139 mmol/L (133-145) 10/29/24 10:33 Potassium 4.1 mmol/L (3.3-5.1) 10/29/24 10:33 Chloride 92 mmol/L (98-108) L 10/29/24 10:33 Carbon Dioxide 38.9 mmol/L (21.0-32.0) H 10/29/24 10:33 Anion Gap 8 (5-15) 10/29/24 10:33 BUN 24 mg/dL (4-19) H 10/29/24 10:33 Creatinine 0.69 mg/dL (0.70-1.20) L 10/29/24 10:33 Est GFR (MDRD) Non-Af 108 (>60) 10/29/24 10:33 BUN/Creatinine Ratio 34.7 RATIO (10-20) H 10/29/24 10:33 Glucose 237 mg/dL (70-99) H 10/29/24 10:33 Microbiology Microbiology: Microbiology 10/29/24 11:04 Mucosa - Nose SARS-CoV-2, Influenza & RSV (PCR) - Final Estimated Creatinine Clearance Estimated Creatinine Clearance: > 100 Goal Trough Goal Trough: 15-20 mcg/mL Pharmacy Plan for Drug Dosing Pharmacy Plan for Drug Dosing: [facility] IV VANCOMYCIN Consulting Physician: Dr. Juárez Indication: Pneumonia Goal Trough: 15-20 SrCr: 0.69 CrCl > 100 Comments: Received 2000mg x1 dose in ED @ 13:50 10/29/24 Vancomycin Dose: 1500mg Q8H to start @ 22:00 10/29/24 Pending Level: 10/30/24 @ 13:30 Pharmacy Service will continue to monitor and adjust dosing as required. Follow-Up Labs Follow-Up Labs: Trough: Vancomycin (10/30/24 @ 13:30)
[2024-10-29 17:19] LABS: Bedside Glucose 123 mg/dL (74-106)
[2024-10-29] MEDS: Insulin Lispro 100 UNIT/ML INSULN.PEN SC (17:37)
[2024-10-29] MEDS: Carvedilol 12.5 MG Tablet PO (18:20)
[2024-10-29] MEDS: Ipratropium/Albuterol Sulfate 3 ML AMPUL.NEB INHALATION (20:20)
[2024-10-29] MEDS: oxyCODONE 5 MG Tablet PO (20:48)
[2024-10-29] MEDS: Vancomycin HCl 1,500 MG in 0.9% Normal Saline (500mL Bag) 500 ML 250 MG IV (21:20)
[2024-10-29] MEDS: DAKIN'S SOL HALF STRENGTH (=0.25%) TOPICAL (21:20)
[2024-10-29] MEDS: Fluticasone 0.05% 1 SPRAY NASAL.SRY NASAL (21:29)
[2024-10-29] MEDS: guaiFENesin 600 MG Tablet PO (21:30)
[2024-10-29] MEDS: APIXABAN 5 MG TABLET PO (21:30)
[2024-10-29] MEDS: Juven (unflavored) Packet 1 PACKET PO (21:30)
[2024-10-29] MEDS: 0.9% Saline Lock 10 ML Syringe IV ×2 (21:31→22:28)
[2024-10-29] MEDS: Furosemide 40 MG Tablet PO (21:31)
[2024-10-29] MEDS: Fenofibrate 48 MG Tablet PO (21:31)
[2024-10-29 22:21] LABS: Bedside Glucose 116 mg/dL (74-106)
[2024-10-29] MEDS: Piperacil/Tazobactam 3.375 GM in 0.9% Normal Saline (50mL MB+) 50 ML IV (22:29)
[2024-10-29] MEDS: morphine SR 15 MG Tablet 30 MG PO (22:47)
[2024-10-29] MEDS: Insulin Glargine-YFGN 100 UNIT/ML Pen 15 UNIT SC (22:55)
[2024-10-29 23:09] LABS: Bedside Glucose 114 mg/dL (74-106)
[2024-10-30] VITALS (12 sets, daily range): BP systolic 119–149; BP diastolic 78–83; PULSE 83–109; RESP 14–23; TEMP 36.6–36.9; O2SAT 90–94
[2024-10-30] MEDS: oxyCODONE 5 MG Tablet PO ×3 (04:10→17:21)
[2024-10-30] MEDS: Vancomycin HCl 1,500 MG in 0.9% Normal Saline (500mL Bag) 500 ML 250 MG IV (05:23)
[2024-10-30] MEDS: Piperacil/Tazobactam 3.375 GM in 0.9% Normal Saline (50mL MB+) 50 ML IV ×3 (05:24→22:53)
[2024-10-30 06:56] LABS: Hematocrit 30.8 % (40-54); Hemoglobin 8.4 g/dL (13.0-16.5); Mean Corp Hgb Conc 27.3 g/dL (32-36); Mean Corpuscular Hgb 22.3 pg (27.0-32.0); Mean Corpuscular Volume 81.7 fL (80-94); Mean Platelet Vol. 9.7 fl (6.2-12.0); Platelet Count 232 K/mm3 (150-450); RBC Distribution Width CV 18.8 % (11.6-14.6); RBC Distribution Width SD 54.3 fl (35.1-43.9); Red Blood Count 3.77 M/mm3 (4.6-6.2); White Blood Count 7.6 K/mm3 (4.4-11.0)
[2024-10-30] MEDS: Ipratropium/Albuterol Sulfate 3 ML AMPUL.NEB INHALATION ×3 (07:01→20:05)
--- NOTE | 2024-10-30 07:09 | EX.PCM.CONCC ---
Assessment & Plan Assessment/Plan (1) Acute on chronic respiratory failure with hypoxia and hypercapnia: PLAN: Plan RECOMMENDATIONS: 1. Continue to wean supplemental oxygen to maintain saturation is 88 to 92%. 2. BiPAP therapy with naps and nightly. 3. Continue empiric broad-spectrum antimicrobials, pending culture results. 4. Aggressive bronchopulmonary hygiene. 5. Diuretics per home regimen. 6. Case management/social work to assist in acquiring new BiPAP for nursing facility. IMPRESSIONS: 1. Acute on chronic combined respiratory failure The patient was recently hospitalized with human metapneumovirus infection with secondary bacterial pneumonia. He presented to the hospital with worsening hypoxemia with radiographic evidence of a persistent right lower lobe consolidation and atelectasis. At this time, I agree with continuing empiric broad-spectrum antimicrobials to cover for healthcare associated pneumonia. Cultures are currently pending. In addition to the aforementioned, the patient's urinalysis was also concerning for possible infection as well. The patient is currently maintaining appropriate oxygen saturations on 6 L/min, but indicated that he was requiring 5 L/min at his baseline. Unfortunately, the patient does have a known history of sleep apnea, but indicated that his BiPAP machine is no longer functional. I would recommend that we continue aggressive bronchopulmonary hygiene and utilize BiPAP therapy with naps and nightly to assist with alveolar recruitment. 2. Obstructive sleep apnea/alveolar hypoventilation secondary to obesity Continue BiPAP support with naps and nightly. Prior to discharge, the patient will need to be set up for a new BiPAP machine to be delivered to his nursing facility. 3. History of paraplegia related to L1 injury/chronic pain syndrome/morbid obesity Complicates care, management, recovery and prognosis. Continue supportive measures as noted above along with BiPAP therapy, per outpatient regimen. This note was generated with FileThisation software. It may contain incorrect words, spelling, and punctuation that were not noted in checking the note before signing. HPI Consult Data Date of Consult: 10/30/24 HPI Narrative Reason for Consultation: Acute on chronic hypoxemic respiratory failure HPI Narrative: The patient is a 59-year-old male, with a history as outlined below, who presented to the emergency department via EMS on October 29 with worsening hypoxemia. The patient was recently admitted to the hospital October 12 through October 16 with dyspnea and hypoxemia, which was felt to be secondary to human metapneumovirus infection and secondary bacterial pneumonia. At the time of his discharge from the hospital, the patient was requiring 7 L/min via nasal cannula. The patient reported that following his discharge from the hospital, the custodial was able to wean his oxygen to 5 L/min. Although he does have a known history of obstructive sleep apnea, he reported that his BiPAP machine is no longer functional and that his nursing facility has not made any attempt to replace the machine or fix the issue. He does report the presence of a productive cough of purulent sputum. On presentation to the emergency department, the patient was documented to be afebrile and hemodynamically stable. He was initially requiring 8 L/min of supplemental oxygen to maintain appropriate saturations. Laboratory evaluation revealed a normal white blood cell count. ABG was notable for a pH of 7.35 with a pCO2 of 67 and pO2 of 61. Chemistry profile was notable for a bicarbonate of 39 and creatinine of 0.69. Lactate was within normal limits. Troponin was elevated at 113 with a BNP of 108. Urine analysis was positive for nitrites, leukocyte esterase and 1+ urine bacteria. Blood, urine and sputum cultures were collected. CT imaging of the chest without contrast demonstrated a dense consolidation in the right lower lobe, which appears somewhat larger than the previously noted consolidation on chest imaging on October 12. The patient was subsequently placed back on antimicrobial therapy and admitted to the progressive care unit. The patient was maintained on AVAPS therapy overnight. [facility] Medical History VRE (vancomycin resistant enterococcus) culture positive Decubitus ulcer of sacral region, stage 4 Lymphedema BATOOL treated with BiPAP Abscess of back Constipation Pressure ulcer of sacral region Chronic indwelling Campbell catheter Blood loss anemia Clot retention of urine Pressure injury, unstageable, with eschar Bilateral pulmonary embolism Rhabdomyolysis Community acquired pneumonia Hypoglycemia Acute osteomyelitis of spine Former tobacco use Paraplegia Cellulitis of leg without foot, right Anemia BMI greater than 40 Type 2 diabetes mellitus HTN (hypertension) H/o back surgery Home Medications ?Medication ?Instructions ?Recorded ?Last Taken ?Type fluticasone propionate 50 1 spray intranasal DAILY shortness 03/03/20 Unknown History mcg/actuation nasal of breath spray,suspension (Flonase Allergy Relief) apixaban 5 mg tablet (Eliquis) 5 mg PO BID 07/29/23 08/31/23 History methocarbamol 500 mg tablet 1,000 mg PO BID PRN cramps 07/29/23 08/31/23 History polyethylene glycol 3350 17 17 g PO BID constipation 07/29/23 07/29/23 History gram/dose oral powder (ClearLax) pantoprazole 40 mg tablet,delayed 40 mg PO DAILY stomach 08/31/23 08/31/23 History release aluminum-mag hydroxide-simethicone 30 ml PO Q6H PRN PRN Gastric 09/13/23 Unknown Rx 400 mg-400 mg-40 mg/5 mL oral susp Burning #0 mL (Mag-Al Plus Extra Strength) amlodipine 10 mg tablet 10 mg PO DAILY #0 tabs 09/13/23 Unknown Rx carvedilol 12.5 mg tablet 12.5 mg PO BIDCM #0 tabs 09/13/23 Unknown Rx diphenhydramine HCl 25 mg capsule 25 mg PO TID PRN PRN Itching #0 09/13/23 Unknown Rx (Banophen) caps peg [id number] 1 1 drp EACH EYE BID dry eyes #0 mL 09/13/23 Unknown Rx %-0.2 %-0.2 % eye drops (Artificial Tears ([id number])) polysaccharide iron complex 150 mg 150 mg PO .QOD supplement 10/15/23 Unknown History iron capsule (Ferrex) sennosides 8.6 mg-docusate sodium 2 tab PO BID Constipation 10/15/23 Unknown History 50 mg tablet (Stool Softener-Stimulant Laxative) insulin lispro 100 unit/mL See Protocol subcut ACHS blood 10/23/23 Unknown History subcutaneous pen (Humalog KwikPen sugars (U-100) Insulin) loratadine 10 mg tablet 10 mg PO DAILY allergies 10/23/23 Unknown History (Allerclear) albuterol sulfate 2.5 mg/3 mL 2.5 mg inhalation BID wheezing 10/25/23 Unknown History (0.083 %) solution for nebulization arginine 7 gram-glutamine 7 1 ea PO BID wound healing 03/22/24 Unknown History gram-calcium HMB 1.5 gram oral powder pack (Wiliam) amino acids-protein hydrolysate 15 30 ml PO BID 03/26/24 Unknown History gram-100 kcal/30 mL oral liquid (Pro-Stat Sugar Free) ascorbic acid (vitamin C) 500 mg 500 mg PO QODAY supplement 03/26/24 Unknown History tablet chlorhexidine gluconate 4 % 1 applic topical .twice a week 03/26/24 Unknown History topical liquid (Hibiclens) unknown dextrose 40 % oral gel (Glucose 10 g PO Q15M PRN hypoglycemia 03/26/24 Unknown History Gel) naloxone 0.4 mg/mL injection 0.4 mg IM Q5M PRN opioid reversal 03/26/24 Unknown History syringe ondansetron 4 mg disintegrating 4 mg PO Q4H PRN nausea 03/26/24 Unknown History tablet sodium chloride 0.65 % nasal mist 2 spray intranasal Q2H PRN dry 03/26/24 Unknown History nasal passages dulaglutide 3 mg/0.5 mL 3 mg subcut QWEEK diabetes 07/18/24 Unknown History subcutaneous pen injector (Trulicity) duloxetine 30 mg capsule,delayed 60 mg PO QDAY mood 07/18/24 10/28/24 History release insulin glargine 100 unit/mL 14 unit subcut DAILY diabetes 07/18/24 Unknown History subcutaneous solution (Lantus mellitus type 2 U-100 Insulin) insulin lispro 100 unit/mL 12 unit subcut .ac diabetes 07/18/24 Unknown History subcutaneous solution metformin 500 mg tablet 1,000 mg PO BID diabetes 07/18/24 Unknown History fenofibrate 54 mg tablet 54 mg PO QHS cholesterol 08/17/24 Unknown History nystatin 100,000 unit/gram topical 1 applic topical TID rednes 08/17/24 Unknown History powder morphine 30 mg capsule,extended 30 mg PO Q12H pain 30 days #60 caps 10/10/24 Unknown Rx release pellets ([place]) acetaminophen 325 mg capsule 650 mg PO Q6H pain 10/12/24 Unknown History acetic acid 0.25 % irrigation 30 ml irrigation BID suprapubic 10/12/24 Unknown History solution cath artificial 1 drp EACH EYE BID PRN dry eyes 10/12/24 Unknown History tears(sinlfzx-ejzjyvxp-ipxuymy) 0.1 %-0.3 %-0.2 % eye drops (GenTeal Tears Moderate) glipizide 2.5 mg tablet, extended 2.5 mg PO DAILY diabetes 10/12/24 Unknown History release 24 hr simethicone 80 mg chewable tablet 80 mg PO .ACTID PRN gas 10/12/24 Unknown History (Gas Relief (simethicone)) sodium hypochlorite 0.25 % 1 applic topical BID wound 10/12/24 Unknown History solution (Dakin's Solution) furosemide 20 mg tablet 40 mg (2 x 20 mg) PO BID #30 tabs 10/16/24 Unknown Rx lorazepam 1 mg tablet 1 mg PO DAILY PRN anxiety #7 tabs 10/16/24 Unknown Rx oxycodone 10 mg tablet 5 mg PO .QID pain 10/29/24 Unknown History Allergy/AdvReac Type Severity Reaction Status Date / Time No Known Allergies Allergy Verified 10/12/24 07:34 Family History Mother Hypertension Hypotension Diabetes Arthritis Father Hypertension Hypotension Heart disease Status post double vessel coronary artery bypass angina Arthritis Grandfather Prostate cancer Grandmother Uterine cancer Surgical History History of hip replacement Colostomy status Hx of spinal surgery H/O sinus surgery Social History housing: custodial current occupational status: employed and retired Smoking Status: Former smoker alcohol intake: never substance use type: does not use do you feel safe at home: Yes ROS ROS Narrative 10 systems were reviewed with pertinent positives as noted in the HPI above. Physical Exam Const alert, oriented x3 and no apparent distress Constitutional Narrative: Morbidly obese. General Appearance: cooperative HEENT normocephalic, head/scalp atraumatic and moist oral mucous membranes Eyes PERRL, EOMs intact bilaterally and conjunctivae normal Neck supple General: trachea midline Chest inspection of chest normal Resp Auscultation: diminished lung sounds; Negative for rales, rhonchi or wheezes Cardio regular rate and regular rhythm GI soft to palpation and non-tender Extremity no clubbing, cyanosis or edema Skin no rashes or lesions noted Neuro CN's II-XII intact bilaterally Psych cooperative and affect normal Lab / Micro Data 10/30/24 06:24 10/30/24 06:24 Labs: Laboratory Results - last 24 hr 10/29/24 10:33: WBC 8.6, RBC 3.94 L, Hgb 9.2 L, Hct 32.7 L, MCV 83.0, MCH 23.4 L, MCHC 28.1 L, RDW Std Deviation 53.9 H, RDW Coeff of Mary 18.5 H, Plt Count 264, MPV 9.8, Immature Gran % (Auto) 0.300, Neut % (Auto) 65.6, Lymph % (Auto) 20.8, Leslie % (Auto) 9.3, Eos % (Auto) 3.5, Baso % (Auto) 0.5, Absolute Neuts (auto) 5.7, Absolute Lymphs (auto) 1.79, Nucleated RBC % 0, PT 15.9 H, INR 1.2, APTT 33.6, Sodium 139, Potassium 4.1, Chloride 92 L, Carbon Dioxide 38.9 H, Anion Gap 8, BUN 24 H, Creatinine 0.69 L, Estim Creat Clear Calc 165.16, Est GFR (MDRD) Non-Af 108, BUN/Creatinine Ratio 34.7 H, Glucose 237 H, Lactic Acid 2.0, Calcium 8.7, Total Bilirubin 0.39, AST 19, ALT 14, Alkaline Phosphatase 81, Troponin T High Sens 113 H*, NT pro BNP II 108, Total Protein 7.8, Albumin 3.6, Globulin 4.2, Albumin/Globulin Ratio 0.9 10/29/24 11:20: Urine Color Yellow, Urine Clarity Clear, Urine pH 6.0, Ur Specific [place] 1.010, Urine Protein 100 H, Urine Glucose (UA) Normal, Urine Ketones Negative, Urine Occult Blood 25 H, Urine Nitrite Positive H, Urine Bilirubin Negative, Urine Urobilinogen Normal, Ur Leukocyte Esterase 500 H, Urine RBC 0-5 SEEN, Urine WBC 0-5 SEEN, Ur Squamous Epith Cells 0 SEEN, Urine Bacteria 1+, Urine Mucus 0 SEEN 10/29/24 12:24: Troponin T Hi Sens 2 Hr 109 H* 10/29/24 14:28: Troponin T Hi Sens 4Hr 105 H* 10/29/24 15:42: Lactic Acid 1.6 10/29/24 17:01: POC Glucose 123 H 10/29/24 21:40: POC Glucose 116 H 10/29/24 22:46: POC Glucose 114 H 10/30/24 06:24: WBC 7.6, RBC 3.77 L, Hgb 8.4 L, Hct 30.8 L, MCV 81.7, MCH 22.3 L, MCHC 27.3 L, RDW Std Deviation 54.3 H, RDW Coeff of Mary 18.8 H, Plt Count 232, MPV 9.7 Micro: Microbiology 10/29/24 11:20 Urine Catheter - Campbell Streptococcus pneumoniae Antigen (M - Final 10/29/24 11:20 Urine Catheter - Campbell Legionella Antigen - Final 10/29/24 15:23 Mucosa - Nasopharyngeal Respiratory Panel (PCR) - Final 10/29/24 11:04 Mucosa - Nose SARS-CoV-2, Influenza & RSV (PCR) - Final ABG Data ABG results: ABG 10/29/24 10:36 Specimen Type ART Sample Site R Brach pH 7.35 Bicarbonate Actual 37.2 H Total CO2 39 Base Excess 12 H O2 Saturation 89 L O2 % 8.0 ABG pCO2 66.8 H ABG pO2 61 L O2 Delivery Device Cannula Vent Mode Not entered Imaging Radiology Impression Chest X-Ray 10/29/24 11:30 IMPRESSION: Pneumonia and right pleural effusion. Reading Location: [facility] Chest CT 10/29/24 14:08 IMPRESSION: Coronary artery calcification (CAC) is is present Dense consolidation in the right lower lobe. Questionable prominence of the right hilum with narrowing of the right interlobar artery. Radiographic follow-up recommended. [facility] Charges/Coding Visit Charges Inpatient E&M: 46784 Init Hosp L3
[2024-10-30 07:46] LABS: Anion Gap 9 (5-15); BUN 20 mg/dL (4-19); BUN/Creat Ratio 35.1 RATIO (10-20); Calcium,Total 8.4 mg/dL (7.6-11.0); Carbon Dioxide 36.2 mmol/L (21.0-32.0); Chloride 94 mmol/L (98-108); Creatinine, Serum 0.56 mg/dL (0.70-1.20); EST Glomerular Filtration Rate 115 (>60); Estimated Creatinine Clearance 194.94 ml/min (50-250); Glucose 130 mg/dL (70-99); Potassium 3.8 mmol/L (3.3-5.1); Sodium Level 139 mmol/L (133-145)
[2024-10-30] MEDS: morphine SR 15 MG Tablet 30 MG PO ×3 (08:52→22:57)
[2024-10-30] MEDS: Pantoprazole Sodium 40 MG Tablet PO (08:52)
[2024-10-30] MEDS: Furosemide 40 MG Tablet PO ×2 (08:52→22:55)
[2024-10-30] MEDS: Carvedilol 12.5 MG Tablet PO ×2 (08:53→17:19)
[2024-10-30] MEDS: guaiFENesin 600 MG Tablet PO ×2 (08:53→22:55)
[2024-10-30] MEDS: APIXABAN 5 MG TABLET PO ×2 (08:53→22:53)
[2024-10-30] MEDS: Loratadine 10 MG Tablet PO (08:53)
[2024-10-30] MEDS: DULoxetine Hcl 60 MG Capsule PO (08:53)
[2024-10-30] MEDS: Insulin Lispro 100 UNIT/ML INSULN.PEN SC ×6 (08:54→23:01)
[2024-10-30] MEDS: Juven (unflavored) Packet 1 PACKET PO ×2 (08:55→22:52)
[2024-10-30 08:59] LABS: Bedside Glucose 112 mg/dL (74-106)
--- NOTE | 2024-10-30 09:00 | CASEMGMT ---
Discharge Planning Updates sent to [facility]. Dipika Bullard DC Planning Asst.
--- NOTE | 2024-10-30 11:52 | CASEMGMT ---
Addendum entered by Frannie Dang 10/30/24 12:35: SW received a phone call from [facility] DON Stephy. Stephy asked if patient was being discharged today. SW let her know patient was not being discharged today. Stephy said the bipap is fine and there are no missing pieces. Stephy would prefer patient saturate at 92% at least on 6L or less before he is discharged. They also express concern with patient wearing bipap with naps as patient dozes off and on all day. It would be too difficult for staff to keep up with making sure patient is wearing the bipap with naps during the day. SW notified physician that patient does have a working bipap at [facility]. Frannie PARRISH Original Note: [facility] indicated patient has a bipap, but they just realized it is missing a piece. The DON asked if patient needs it all the time or at night only. SW let them know patient would need the bipap at night and with naps. SW will ask if they will be able to get the piece before patient returns. Frannie PARRISH
--- NOTE | 2024-10-30 11:55 | WOUNDNOTE ---
wound photo: left heel
--- NOTE | 2024-10-30 11:56 | WOUNDNOTE ---
wound photo: right lateral foot
--- NOTE | 2024-10-30 11:56 | WOUNDNOTE ---
wound photo: sacrum/buttock
--- NOTE | 2024-10-30 11:58 | NURSING ---
patient refused second sacrum wound dressing change
[2024-10-30 12:29] LABS: Bedside Glucose 188 mg/dL (74-106)
[2024-10-30 15:02] LABS: Vancomycin, Trough Level 28.8 ug/mL (5.0-15.0)
--- NOTE | 2024-10-30 15:21 | PCM.RX.CS ---
Consult Antibiotic Management Pharmacy has been consulted to manage selected antibiotic: Vancomycin Type of Intervention Type of Consult: Follow-up Suspected Infection Suspected Infection: Pneumonia Labs Labs: Sodium 139 mmol/L (133-145) 10/30/24 06:24 Potassium 3.8 mmol/L (3.3-5.1) 10/30/24 06:24 Chloride 94 mmol/L (98-108) L 10/30/24 06:24 Carbon Dioxide 36.2 mmol/L (21.0-32.0) H 10/30/24 06:24 Anion Gap 9 (5-15) 10/30/24 06:24 BUN 20 mg/dL (4-19) H 10/30/24 06:24 Creatinine 0.56 mg/dL (0.70-1.20) L 10/30/24 06:24 Est GFR (MDRD) Non-Af 115 (>60) 10/30/24 06:24 BUN/Creatinine Ratio 35.1 RATIO (10-20) H 10/30/24 06:24 Glucose 130 mg/dL (70-99) H 10/30/24 06:24 Vancomycin Trough 28.8 ug/mL (5.0-15.0) H 10/30/24 14:00 Microbiology Microbiology: Microbiology 10/29/24 20:25 Sputum, Expectorated/Coughed Gram Stain - Final 10/29/24 11:20 Urine, Clean Catch Urine Culture - Preliminary GNR lactose stone and concrete washer Gram positive organism 10/29/24 11:20 Urine Catheter - Campbell Streptococcus pneumoniae Antigen (M - Final 10/29/24 11:20 Urine Catheter - Campbell Legionella Antigen - Final 10/29/24 15:23 Mucosa - Nasopharyngeal Respiratory Panel (PCR) - Final 10/29/24 11:04 Mucosa - Nose SARS-CoV-2, Influenza & RSV (PCR) - Final Pharmacy Plan for Drug Dosing Pharmacy Plan for Drug Dosing: VANCOMYCIN LEVEL RECEIVED Current Vancomycin Dose: 1500MG Q8 Number of Doses Received: 3 Vancomycin Level: 28.8 MG/DL Hours Since Last Dose: 8.5 Renal Function: SCr 0.56 mg/dL, 194 mL/min Renal Function Trend: stable Lab/Micro: sputum cx pending, urine cx with GN lactose (+) and gram (+) organism Vancomycin Plan/Comments: 8.5 hour trough is supratherapeutic at 28.8 mg/dl (goal 15-20). Will hold further dosing at this time and order a random level in 12 hours. Pending Level: 10/31/24 @ 0200 - random Pharmacy Service will continue to monitor and adjust dosing as required.
--- NOTE | 2024-10-30 16:44 | PN.HOSP_ITS ---
Reason for Visit Reason for Visit: Diagnoses Pneumonia, unspecified organism (10/29/24) Acute and chronic respiratory failure with hypoxia (10/29/24) Acute and chronic respiratory failure with hypercapnia (10/29/24) Subjective Subjective Patient was seen and examined today, I talked briefly with pulmonary medicine about his care. There was some conjecture that the patient's BiPAP at his residential was not functioning properly, case management/social work called the residential and went over this with them, it appears that the BiPAP is functioning properly. Patient is on programmed pain medication, I wrote for these medications for the patient. The residential will not take the patient back unless he is requiring 6 L of oxygen her last Objective Data Objective Data Vital Signs: Vital Signs Temp Pulse Resp BP Pulse Ox O2 Del Method O2 Flow Rate 98.3 F 100 22 H 149/79 H 92 High Flow 6 10/30/24 04:16 10/30/24 14:58 10/30/24 14:58 10/30/24 04:16 10/30/24 07:14 10/30/24 10:00 10/30/24 10:00 FiO2 40 10/30/24 07:03 Oxygen Flow Rate (L/min) 6 Oxygen Delivery Method High Flow Weight: 137.6 kg Body Mass Index (BMI) 47.5 Intake & Output: Intake and Output for Last 24 Hours 10/28/24 10/29/24 10/30/24 23:59 23:59 23:59 Intake Total 2530 / 2530 630 / 630 Output Total 660 / 1510 1750 / 1750 Balance 1870 / 1020 -1120 / -1120 Lab / Micro Data 10/30/24 06:24 10/30/24 06:24 Labs: Laboratory Results - last 24 hr 10/29/24 17:01: POC Glucose 123 H 10/29/24 21:40: POC Glucose 116 H 10/29/24 22:46: POC Glucose 114 H 10/30/24 06:24: WBC 7.6, RBC 3.77 L, Hgb 8.4 L, Hct 30.8 L, MCV 81.7, MCH 22.3 L , MCHC 27.3 L, RDW Std Deviation 54.3 H, RDW Coeff of Mary 18.8 H, Plt Count 232, MPV 9.7, Sodium 139, Potassium 3.8, Chloride 94 L, Carbon Dioxide 36.2 H, Anion Gap 9, BUN 20 H, Creatinine 0.56 L, Estim Creat Clear Calc 194.94, Est GFR (MDRD) Non-Af 115, BUN/Creatinine Ratio 35.1 H, Glucose 130 H, Calcium 8.4 10/30/24 08:39: POC Glucose 112 H 10/30/24 12:07: POC Glucose 188 H 10/30/24 14:00: Vancomycin Trough 28.8 H Micro: Microbiology 10/29/24 20:25 Sputum, Expectorated/Coughed Gram Stain - Final 10/29/24 11:20 Urine, Clean Catch Urine Culture - Preliminary GNR lactose occupational therapy specialist Gram positive organism 10/29/24 11:20 Urine Catheter - Campbell Streptococcus pneumoniae Antigen (M - Final 10/29/24 11:20 Urine Catheter - Campbell Legionella Antigen - Final 10/29/24 15:23 Mucosa - Nasopharyngeal Respiratory Panel (PCR) - Final 10/29/24 11:04 Mucosa - Nose SARS-CoV-2, Influenza & RSV (PCR) - Final Physical Exam Const alert, oriented x3 and no apparent distress Constitutional Narrative: Patient has class III obesity General Appearance: cooperative, well kempt and well developed Orientation / Consciousness: awake, oriented to person, oriented to place and oriented to time HEENT normocephalic, head/scalp atraumatic and moist oral mucous membranes Eyes PERRL, EOMs intact bilaterally and conjunctivae normal Neck supple, no JVD, thyroid normal and no carotid bruits General: trachea midline Resp normal respiratory effort, no retractions, no use of accessory muscles and clear to auscultation bilaterally Auscultation: Negative for rales, rhonchi or wheezes Cardio regular rate, regular rhythm, S1 normal heart sound, S2 normal heart sound, no murmurs, no rub and no gallops GI normal to inspection, nondistended, normoactive bowel sounds, soft to palpation, non-tender and non-distended Extremity General Extremity: edema bilateral Skin Skin Narrative: Patient has stage IV pressure injury to sacrum and buttocks area, he has stage II pressure injury to left heel and right lateral foot-please see wound care nurse documentation Neuro oriented x3 and CN's II-XII intact bilaterally Neuro Narrative: Patient has paraplegia Sensorium / Orientation: awake and alert Speech: speech normal Psych affect normal Assessment & Plan Assessment/Plan (1) Acute on chronic respiratory failure with hypoxia and hypercapnia: PLAN: Plan 1. Acute on chronic hypoxic and hypercapnic respiratory failure in the setting of suspected healthcare associated pneumonia-patient will remain on aerosol treatments and IV antibiotics, pulmonary medicine is participating in his care, pulse ox will be monitored #2 Healthcare associated pneumonia-patient will remain on his present antibiotics #3 pressure injuries to right buttocks-stage IV, sacrum, stage II right lateral foot, stage II left heel-wound care nurse is directing wound care-complicates care, management, recovery, and prognosis #4 paraplegia-complicates care, management, recovery, and prognosis #5 essential hypertension-patient will remain on his present medications #6 chronic pain syndrome-patient is on programmed MS Contin and oxycodone #7 type 2 diabetes-patient's blood sugars will be monitored, sliding scale insulin will be administered, patient is on basal insulin and regular insulin (with each meal) #8 class III obesity-complicates care, management, recovery, and prognosis Total clinical time spent by myself addressing the patient's medical issues, reviewing all of his data, and collaborating with the patient's care team: 50- minutes Charges/Coding Visit Charges Inpatient E&M: 58169 Subs Hosp L3
[2024-10-30] MEDS: Ondansetron 4 MG/2 ML Vial IV (17:14)
[2024-10-30 17:24] LABS: Bedside Glucose 169 mg/dL (74-106)
[2024-10-30] MEDS: Fenofibrate 48 MG Tablet PO (22:55)
[2024-10-30] MEDS: Insulin Glargine-YFGN 100 UNIT/ML Pen 15 UNIT SC (23:01)
[2024-10-30] MEDS: DAKIN'S SOL HALF STRENGTH (=0.25%) TOPICAL (23:06)
[2024-10-31] VITALS (12 sets, daily range): BP systolic 121–139; BP diastolic 63–77; PULSE 91–98; RESP 14–22; TEMP 36.1–37; O2SAT 92–94
[2024-10-31] MEDS: oxyCODONE 5 MG Tablet PO ×4 (00:34→17:17)
[2024-10-31 00:38] LABS: Bedside Glucose 150 mg/dL (74-106)
[2024-10-31] MEDS: Methocarbamol 500 MG Tablet 1000 MG PO ×3 (01:17→21:36)
[2024-10-31] MEDS: Ipratropium/Albuterol Sulfate 3 ML AMPUL.NEB INHALATION ×6 (01:27→23:30)
[2024-10-31 03:07] LABS: Vancomycin, Random Level 13.6 ug/mL (0.0-15.0)
--- NOTE | 2024-10-31 03:42 | PCM.RX.CS ---
Consult Antibiotic Management Pharmacy has been consulted to manage selected antibiotic: Vancomycin Type of Intervention Type of Consult: Follow-up Labs Labs: Sodium 139 mmol/L (133-145) 10/30/24 06:24 Potassium 3.8 mmol/L (3.3-5.1) 10/30/24 06:24 Chloride 94 mmol/L (98-108) L 10/30/24 06:24 Carbon Dioxide 36.2 mmol/L (21.0-32.0) H 10/30/24 06:24 Anion Gap 9 (5-15) 10/30/24 06:24 BUN 20 mg/dL (4-19) H 10/30/24 06:24 Creatinine 0.56 mg/dL (0.70-1.20) L 10/30/24 06:24 Est GFR (MDRD) Non-Af 115 (>60) 10/30/24 06:24 BUN/Creatinine Ratio 35.1 RATIO (10-20) H 10/30/24 06:24 Glucose 130 mg/dL (70-99) H 10/30/24 06:24 Vancomycin Trough 28.8 ug/mL (5.0-15.0) H 10/30/24 14:00 Random Vancomycin 13.6 ug/mL (0.0-15.0) 10/31/24 02:25 Microbiology Microbiology: Microbiology 10/29/24 20:25 Sputum, Expectorated/Coughed Gram Stain - Final 10/29/24 11:20 Urine, Clean Catch Urine Culture - Preliminary GNR lactose smelter operator Gram positive organism 10/29/24 11:20 Urine Catheter - Campbell Streptococcus pneumoniae Antigen (M - Final 10/29/24 11:20 Urine Catheter - Campbell Legionella Antigen - Final 10/29/24 15:23 Mucosa - Nasopharyngeal Respiratory Panel (PCR) - Final 10/29/24 11:04 Mucosa - Nose SARS-CoV-2, Influenza & RSV (PCR) - Final Goal Trough Goal Trough: 15-20 mcg/mL Pharmacy Plan for Drug Dosing Pharmacy Plan for Drug Dosing: Pharmacy Service will continue to monitor and adjust dosing as required. RANDOM LEVEL 13.6 @ 20.5 HOURS. START 1GM Q8H AND FOLLOW UP TROUGH PRIOR TO 4TH DOSE Follow-Up Labs Follow-Up Labs: Trough: Vancomycin Date/Time Labs Ordered Labs to be done on [date and time ordered]: 11/01 @ 0300
[2024-10-31] MEDS: Vancomycin IV 1,000 MG/200 ML BAG 200 MG IV ×3 (04:01→18:46)
[2024-10-31] MEDS: 0.9% Saline Lock 10 ML Syringe IV ×3 (04:02→21:39)
[2024-10-31] MEDS: Piperacil/Tazobactam 3.375 GM in 0.9% Normal Saline (50mL MB+) 50 ML IV ×3 (06:07→21:37)
[2024-10-31] MEDS: morphine SR 15 MG Tablet 30 MG PO ×3 (06:12→21:35)
--- NOTE | 2024-10-31 07:55 | PCM.PN.INT ---
Assessment & Plan Assessment/Plan (1) Acute on chronic respiratory failure with hypoxia and hypercapnia: PLAN: Plan RECOMMENDATIONS: 1. Continue to wean supplemental oxygen to maintain saturation is 88 to 92%. 2. BiPAP therapy with naps and nightly. 3. Continue empiric broad-spectrum antimicrobials, pending culture results. 4. Aggressive bronchopulmonary hygiene. 5. Diuretics per home regimen. 6. Compliance with outpatient PAP therapy is strongly recommended. IMPRESSIONS: 1. Acute on chronic combined respiratory failure The patient was recently hospitalized with human metapneumovirus infection with secondary bacterial pneumonia. He presented to the hospital with worsening hypoxemia with radiographic evidence of a persistent right lower lobe consolidation and atelectasis. At this time, I agree with continuing empiric broad-spectrum antimicrobials to cover for healthcare associated pneumonia. Cultures are currently pending. In addition to the aforementioned, the patient's urinalysis was also concerning for possible infection as well. The patient is currently maintaining appropriate oxygen saturations on 6 L/min, but indicated that he was requiring 5 L/min at his baseline. Unfortunately, the patient does have a known history of sleep apnea, but has been noncompliant with the use of BiPAP therapy at his nursing facility. I would recommend that we continue aggressive bronchopulmonary hygiene and utilize BiPAP therapy with naps and nightly to assist with alveolar recruitment. 2. Obstructive sleep apnea/alveolar hypoventilation secondary to obesity Continue BiPAP support with naps and nightly. Prior to discharge, the functional status of the patient's BiPAP machine will need to be verified with the snf facility. 3. History of paraplegia related to L1 injury/chronic pain syndrome/morbid obesity Complicates care, management, recovery and prognosis. Continue supportive measures as noted above along with BiPAP therapy, per outpatient regimen. This note was generated with [employer] dictation software. It may contain incorrect words, spelling, and punctuation that were not noted in checking the note before signing. Subjective Subjective The patient was seen and examined at the bedside this morning. Events from the last 24 hours have been reviewed. The patient is currently afebrile, hemodynamically stable and maintaining appropriate oxygen saturations on 6 L/min via nasal cannula. The patient does believe that his breathing quality is slowly improving with antimicrobials. The patient reported that he did utilize PAP therapy overnight. Objective Data Objective Data The patient's most recent lab work, culture data and imaging studies have all been personally reviewed. Surface echocardiogram from September 2024 demonstrated an ejection fraction of 55 to 60%. Blood, urine and sputum cultures are pending. Vital Signs: Vital Signs Temp Pulse Resp BP Pulse Ox O2 Del Method O2 Flow Rate 98.6 F 93 22 H 139/74 H 94 Nasal Cannula 6 10/31/24 03:59 10/31/24 06:57 10/31/24 06:57 10/31/24 03:59 10/31/24 06:57 10/31/24 06:57 10/31/24 06:57 FiO2 40 10/31/24 04:15 Oxygen Flow Rate (L/min) 6 Oxygen Delivery Method Nasal Cannula Weight: 303 lb 5.697 oz Body Mass Index (BMI) 47.5 Intake & Output: Intake and Output for Last 24 Hours 10/29/24 10/30/24 10/31/24 23:59 23:59 23:59 Intake Total 2530 / 2530 1640 / 1640 250 / 250 Output Total 660 / 1510 5050 / 5050 800 / 800 Balance 1870 / 1020 -3410 / -3410 -550 / -550 Lab / Micro Data Attestation: I reviewed the patient's lab results. 10/30/24 06:24 10/30/24 06:24 Labs: Laboratory Results - last 24 hr 10/30/24 08:39: POC Glucose 112 H 10/30/24 12:07: POC Glucose 188 H 10/30/24 14:00: Vancomycin Trough 28.8 H 10/30/24 16:58: POC Glucose 169 H 10/30/24 23:00: POC Glucose 150 H 10/31/24 02:25: Random Vancomycin 13.6 Micro: Microbiology 10/29/24 11:20 Urine, Clean Catch Urine Culture - Preliminary Pseudomonas aeruginosa Enterococcus faecalis 10/29/24 20:25 Sputum, Expectorated/Coughed Gram Stain - Final 10/29/24 11:20 Urine Catheter - Campbell Streptococcus pneumoniae Antigen (M - Final 10/29/24 11:20 Urine Catheter - Campbell Legionella Antigen - Final 10/29/24 15:23 Mucosa - Nasopharyngeal Respiratory Panel (PCR) - Final 10/29/24 11:04 Mucosa - Nose SARS-CoV-2, Influenza & RSV (PCR) - Final Physical Exam Const alert, oriented x3 and no apparent distress Constitutional Narrative: Morbidly obese. General Appearance: cooperative HEENT normocephalic, head/scalp atraumatic and moist oral mucous membranes Eyes PERRL, EOMs intact bilaterally and conjunctivae normal Neck supple General: trachea midline Chest inspection of chest normal Resp Auscultation: diminished lung sounds; Negative for rales, rhonchi or wheezes Cardio regular rate and regular rhythm GI soft to palpation and non-tender Extremity no clubbing, cyanosis or edema Skin no rashes or lesions noted Neuro CN's II-XII intact bilaterally Psych cooperative and affect normal Charges/Coding Visit Charges Inpatient E&M: 82733 Subs Hosp L2
--- NOTE | 2024-10-31 08:17 | SP.MBSS_ITS ---
Modified Barium Swallow Patient Information Study Date: 10/31/24 Study Time: 08:10 Direct Billable Minutes: 105 Total Minutes procedure & reportin Diagnosis: PNA J69.0 Referring Physician: Le Wiggins Reason for Referral: Assess swallow function, assess risk for aspiration, and determine recommendations for least restrictive diet textures and compensatory strategies to improve safety of swallow. Medical History: The patient presented to [facility] ED on 10/29/2024 from SNF for worsening hypoxia. Medical history significant for paraplegia, class III obesity, BATOOL, chronic anemia, bilateral PE, and type 2 diabetes - See EMR for full PMH. Patient was recently hospitalized here from 10/12-10/16 for acute hypoxic respiratory failure secondary to human metapneumovirus infection with concern for superimposed bacterial pneumonia and acute on chronic heart failure. He was discharged on 5L via nasal cannula. He came back to the ED 10/29/2024 for worsening hypoxia noted by nursing staff and need for 8L via nasal cannula. Pt also has a productive cough. CT chest showed a dense consolidation in the right lower lobe new from previous CT chest at the end of September. Pt was placed on BiPAP in the ED and then admitted. BSE revealed some throat clearing w/ po intake and recommended Regular textures / Thin liquids w/ plan for MBSS to further assess aspiration risk given pt has had PNA at least 3X this past year. Pt agreeable. Current Diet Ordered: Regular / Thin Dentition: Natural Teeth and Missing Teeth Mental Status: WNL Respiratory Status: Oxygenating on 4L/M nasal cannula (6L via high flow nasal cannula) Penetration-Aspiration Scale Penetration-Aspiration Scale: OBJECTIVE ASSESSMENT OF SWALLOW FUNCTION (QUANTITATIVE ? PER TRIAL): PENETRATION / ASPIRATION SCALE (DUQUE): 1 = does not enter airway 2 = enters airway/above vocal folds/ejected 3 = enters airway/above vocal folds/not ejected 4 = enters airway/contacts vocal folds/ejected 5 = enters airway/contacts vocal folds/not ejected 6 = enters airway/below vocal folds/ejected 7 = enters airway/below vocal folds/not ejected despite effort 8 = enters airway/below vocal folds/no effort VIDEOFLOROSCOPIC SCALE SCORE (DUQUE): Grade I = aspiration of material that has penetrated into the laryngeal vestibule, intact cough reflex Grade II = aspiration < 10 % of the bolus, intact cough reflex Grade III = aspiration of < 10 % of the bolus, reduced cough reflex or aspiration of > 10 % of the bolus, intact cough reflex Grade IV = aspiration of > 10 % of the bolus, reduced cough reflex Penetration-Aspiration Scale Score Thin Liquid via teaspoon: Result: 2= enter airway/above vocal folds/ejected Thin Liquid via teaspoon Trial 2: Result: 2= enter airway/above vocal folds/ejected Thin Liquid via large single sip: cup: Result: 2= enter airway/above vocal folds/ejected Thin Liquid via sequential sips:straw: Result: 2= enter airway/above vocal folds/ejected Comment: Esophageal screen - Complete clearance. Pudding via teaspoon: Result: 1= does not enter airway Comment: Esophageal Screen - Retention in the middle and lower esophagus. Thin Liquid via single sip: straw: Result: 2= enter airway/above vocal folds/ejected Comment: Esophageal screen - Retention in the middle and lower esophagus w/ retrograde flow to the upper esophagus. Continued retention of barium from previous trial in the middle and lower esophagus. An additional liquid wash also had retrograde flow to the upper esophagus w/ continued barium remaining in the middle and lower esophagus at the end of the screen. 1/2 Cookie: Result: 1= does not enter airway Comment: Esophageal screen - Retention in the middle esophagus. Liquid wash was somewhat effective in clearing retention of barium coated cookie through the esophagus. Oral Phase Labial Seal: No Labial Escape Tongue Control During Bolus Hold: Posterior escape of greater than half of bolus Bolus Preparation/Mastication: Timely and efficient chewing and mashing (2 small pieces of cookie not appearing fully chewed) Bolus Transport/Lingual Motion: Delayed initiation of tongue motion Oral Residue: Trace residue lining oral structures Pharyngeal Phase Initiation of Pharyngeal Swallow: Bolus head in pyriforms Soft Palate Elevation: Trace column of contrast/air between soft palate and pharyngeal wall Laryngeal Elevation: Comp. Superior move thyroid cart w/comp. apprx arytenoid cart-epig pet Anterior Hyoid Excursion: Partial anterior movement Epiglottic Movement: Complete inversion Laryngeal Vestibule Closure at Height of Swallow: Incomplete; narrow column of air/contrast in laryngeal vestibule Pharyngeal Stripping Wave: Present - diminished Pharyngoesophageal Segment Opening: Complete distension and complete duration; no obstruction of flow Tongue Base Retraction: Narrow column of contrast between tongue base & post. pharyngeal wall Pharyngeal Residue: Collection of residue within or on pharyngeal structures Esophageal Phase Esophageal Clearance: Esophageal retention w/ retrograde flow below pharyngoesophageal seg. Diagnosis/Impression Diagnosis: Mild oropharyngeal dysphagia R13.12; Esophageal dysphagia R13.14 Impression: The oral phase is primarily marked by... -Mildly decreased bolus control most notable w/ sequential sips of thin liquids spilling to the pyriform sinuses prior to swallow onset. -Timely chewing, but very small pieces of cookie appeared to be not fully chewed. Majority of bolus was thoroughly masticated. The pharyngeal phase is primarily marked by... -Delayed swallow onset, most notable w/ sequential sips of thin liquids. -Consistent laryngeal penetration w/ liquids, which appeared to fully eject with no aspiration observed during the study. Cannot definitively rule out aspiration due to pt's body habitus. -Trace-mild pharyngeal residue most notable w/ cookie trial due to mildly decrease TB retraction and pharyngeal stripping wave. The esophageal phase is primarily marked by... -Retention of cookie and pudding in the middle and lower esophagus, which somewhat cleared w/ 1-2 liquid washes; however, retrograde flow of liquid washes to the upper esophagus prior to clearance through the LES. The patient is at risk for aspiration reflux. Recommendations Diet: Regular Textures and Thin Liquids Comment: STOP meal if increased s/s of reflux, sensation of retention, or regurgitation despite use of strategies listed below and resume meal at a later time. Compensatory Strategies: Small Bites (Chew thoroughly), Small Sips, Slow Rate, Alternate bites/solids and sips/liquids (Take a sip after every 1-2 bites) and Sitting upright (during meals and 60 min after meals) Recommend Repeat Modified Barium Swallow: No Need for Skilled Speech Therapy Services: Yes Comment: -Train the patient in use of strategies to decrease risk for aspiration and reflux aspiration. -Ongoing assessment of diet tolerance of recommended textures. -Train the patient in oropharyngeal exercise program to improve bolus control, anterior hyoid excursion, and swallow onset (lingual resistance, Janie, effortful). Recommended Referrals: GI Consult Education Completed: 1. Described result of evaluation., 2. Pt understands evaluation & agrees with goals and treatment plan., 5. Patient demonstrates recommended strategies. and 7. Pt requires further education on strategies & risks. Status Active ST Patient: Active Contact Information [facility] Speech Therapy:: Ellie Monsalve M.A. [facility]-PRACTICAL NURSING INSTRUCTOR? Speech-Language Pathologist?? [facility] [address] [place] [address]? [email or web address]?? [phone]
[2024-10-31] MEDS: Loratadine 10 MG Tablet PO (09:43)
[2024-10-31] MEDS: APIXABAN 5 MG TABLET PO ×2 (09:43→21:40)
[2024-10-31] MEDS: Juven (unflavored) Packet 1 PACKET PO ×2 (09:44→21:36)
[2024-10-31] MEDS: DULoxetine Hcl 60 MG Capsule PO (09:44)
[2024-10-31] MEDS: Furosemide 40 MG Tablet PO ×2 (09:45→21:40)
[2024-10-31] MEDS: guaiFENesin 600 MG Tablet PO ×2 (09:45→21:36)
[2024-10-31] MEDS: Pantoprazole Sodium 40 MG Tablet PO (09:45)
[2024-10-31] MEDS: DAKIN'S SOL HALF STRENGTH (=0.25%) TOPICAL ×2 (09:46→21:35)
[2024-10-31] MEDS: Insulin Lispro 100 UNIT/ML INSULN.PEN SC ×7 (09:47→21:44)
[2024-10-31] MEDS: Carvedilol 12.5 MG Tablet PO ×2 (09:57→17:17)
[2024-10-31 10:12] LABS: Bedside Glucose 171 mg/dL (74-106)
[2024-10-31 10:24] LABS: Absolute Lymphocyte Count 1.18 X10^3/uL (0.83-4.51); Basophil# 0.04 X10^3/uL; Basophil% 0.6 % (0-1); Eosinophil# 0.22 X10^3/uL; Eosinophils% 3.1 % (0-5); Hematocrit 32.1 % (40-54); Hemoglobin 8.7 g/dL (13.0-16.5); Lymphocyte # 1.18 X10^3/ul (0.83-4.51); Lymphocyte % 16.4 % (19-41); Mean Corp Hgb Conc 27.1 g/dL (32-36); Mean Corpuscular Hgb 22.1 pg (27.0-32.0); Mean Corpuscular Volume 81.7 fL (80-94); Mean Platelet Vol. 9.6 fl (6.2-12.0); Monocyte# 0.71 X10^3/uL; Monocyte% 9.9 % (0-10); NRBC Flagged by Analyzer 0 % (0-5); Neutrophil # 5.02 X10^3/uL (2.7-7.7); Neutrophil % 69.6 % (47-70); Platelet Count 251 K/mm3 (150-450); RBC Distribution Width CV 18.8 % (11.6-14.6); RBC Distribution Width SD 55.4 fl (35.1-43.9); Red Blood Count 3.93 M/mm3 (4.6-6.2); White Blood Count 7.2 K/mm3 (4.4-11.0)
[2024-10-31 10:57] LABS: Anion Gap 8 (5-15); BUN 17 mg/dL (4-19); BUN/Creat Ratio 26.8 RATIO (10-20); Calcium,Total 8.7 mg/dL (7.6-11.0); Carbon Dioxide 36.7 mmol/L (21.0-32.0); Chloride 93 mmol/L (98-108); Creatinine, Serum 0.64 mg/dL (0.70-1.20); EST Glomerular Filtration Rate 111 (>60); Estimated Creatinine Clearance 170.58 ml/min (50-250); Glucose 177 mg/dL (70-99); Potassium 3.9 mmol/L (3.3-5.1); Sodium Level 138 mmol/L (133-145)
[2024-10-31] MEDS: Senna Tablet 2 TABLET PO ×2 (11:18→21:36)
[2024-10-31] MEDS: Polyethylene Glycol 3350 17 GM PACKET PO ×2 (11:18→21:41)
[2024-10-31 12:31] LABS: Bedside Glucose 180 mg/dL (74-106)
[2024-10-31 17:12] LABS: Bedside Glucose 171 mg/dL (74-106)
[2024-10-31] MEDS: Ondansetron 4 MG/2 ML Vial IV (18:43)
--- NOTE | 2024-10-31 19:55 | PN.HOSP_ITS ---
Reason for Visit Reason for Visit: Diagnoses Pneumonia, unspecified organism (10/29/24) Acute and chronic respiratory failure with hypoxia (10/29/24) Acute and chronic respiratory failure with hypercapnia (10/29/24) Subjective Subjective Patient with some muscle spasms and asking about resuming his home Robaxin, otherwise does report breathing continues to improve even compared to yesterday though still some shortness of breath. Also with cough but this is improving as well Objective Data Objective Data Vital Signs: Vital Signs Temp Pulse Resp BP Pulse Ox O2 Del Method O2 Flow Rate 98.0 F 95 18 122/63 H 93 High Flow 5 10/31/24 16:00 10/31/24 16:00 10/31/24 16:00 10/31/24 16:00 10/31/24 16:00 10/31/24 16:00 10/31/24 16:00 FiO2 40 10/31/24 04:15 Oxygen Flow Rate (L/min) 5 Oxygen Delivery Method High Flow Weight: 137.6 kg Body Mass Index (BMI) 47.5 Intake & Output: Intake and Output for Last 24 Hours 10/29/24 10/30/24 10/31/24 23:59 23:59 23:59 Intake Total 2530 / 2530 1640 / 1640 1470 / 1470 Output Total 660 / 1510 5050 / 5050 3450 / 3450 Balance 1870 / 1020 -3410 / -3410 -1979 / -1979 Lab / Micro Data 10/31/24 10:01 10/31/24 10:01 Labs: Laboratory Results - last 24 hr 10/30/24 23:00: POC Glucose 150 H 10/31/24 02:25: Random Vancomycin 13.6 10/31/24 09:34: POC Glucose 171 H 10/31/24 10:01: WBC 7.2, RBC 3.93 L, Hgb 8.7 L, Hct 32.1 L, MCV 81.7, MCH 22.1 L , MCHC 27.1 L, RDW Std Deviation 55.4 H, RDW Coeff of Mary 18.8 H, Plt Count 251, MPV 9.6, Immature Gran % (Auto) 0.400, Neut % (Auto) 69.6, Lymph % (Auto) 16.4 L , Beckham % (Auto) 9.9, Eos % (Auto) 3.1, Baso % (Auto) 0.6, Absolute Neuts (auto) 5.0, Absolute Lymphs (auto) 1.18, Nucleated RBC % 0, Sodium 138, Potassium 3.9, Chloride 93 L, Carbon Dioxide 36.7 H, Anion Gap 8, BUN 17, Creatinine 0.64 L, Estim Creat Clear Calc 170.58, Est GFR (MDRD) Non-Af 111, BUN/Creatinine Ratio 26.8 H, Glucose 177 H, Calcium 8.7 10/31/24 11:16: POC Glucose 180 H 10/31/24 16:36: POC Glucose 171 H Micro: Microbiology 10/29/24 11:09 Blood Culture (Wb) - Left Hand Blood Culture - Preliminary No growth in 48 hours. 10/29/24 10:33 Blood Culture (Wb) - Left Hand Blood Culture - Preliminary No growth in 48 hours. 10/29/24 20:25 Sputum, Expectorated/Coughed Gram Stain - Final 10/29/24 20:25 Sputum, Expectorated/Coughed Respiratory Culture - Preliminary Appears to be normal respiratory beverly. Further studies to follow. 10/29/24 11:20 Urine, Clean Catch Urine Culture - Preliminary Pseudomonas aeruginosa Enterococcus faecalis 10/29/24 11:20 Urine Catheter - Campbell Streptococcus pneumoniae Antigen (M - Final 10/29/24 11:20 Urine Catheter - Campbell Legionella Antigen - Final 10/29/24 15:23 Mucosa - Nasopharyngeal Respiratory Panel (PCR) - Final 10/29/24 11:04 Mucosa - Nose SARS-CoV-2, Influenza & RSV (PCR) - Final Physical Exam Narrative General: Alert, oriented, no apparent distress HEENT: Atraumatic, normocephalic Eyes: Anicteric, normal conjunctiva, extraocular movements grossly intact Neck: Supple Respiratory: Slight increased respiratory effort, breath sounds coarse somewhat scattered Cardiovascular: Regular rate and rhythm GI: Soft, nontender, nondistended Extremities: No significant pitting Musculoskeletal: Patient paraplegic at baseline, moves upper extremities Neuro: Patient paraplegic at baseline Skin: No rashes appreciated Psych: Cooperative Assessment & Plan Assessment/Plan (1) Acute and chronic respiratory failure with hypoxia: PLAN: Plan # Acute on chronic combined respiratory failure secondary to pneumonia and possible suboptimal use of BiPAP - Patient on antibiotics with sputum cultures pending - Is slowly improving - Pulmonology following - Will likely be able to DC next 1 to 2 days depending on O2 requirements and progress #BATOOL -Continue home NIPPV, will be important that patient continues this at SNF, if he does not feel that it is working right will need this to be evaluated further # Paraplegia with chronic pain syndrome - Supportive care -Continue home medications - Resume home Robaxin for muscle spasms #Morbid obesity -BMI documented as 47.5 kg/m? at time of admission -Complicates treatment, prognosis, outcomes -Recommend weight loss and lifestyle changes #Type 2 diabetes mellitus -Glucose checks and sliding scale insulin #pressure injuries -to right buttocks-stage IV, sacrum, stage II right lateral foot, stage II left heel -wound care nurse is directing wound care-complicates care, management, recovery, and prognosis #GERD -Continue PPI #DVT ppx: Patient on Farihaquis Le Wiggins MD Charges/Coding Visit Charges Inpatient E&M: 30902 Subs Hosp L2
[2024-10-31] MEDS: Fenofibrate 48 MG Tablet PO (21:37)
[2024-10-31] MEDS: Insulin Glargine-YFGN 100 UNIT/ML Pen 15 UNIT SC (21:44)
[2024-10-31 23:38] LABS: Bedside Glucose 169 mg/dL (74-106)
[2024-11-01] VITALS (12 sets, daily range): BP systolic 113–143; BP diastolic 58–80; PULSE 95–105; RESP 14–25; TEMP 36.1–37; O2SAT 90–94
[2024-11-01] MEDS: oxyCODONE 5 MG Tablet PO ×5 (00:10→23:58)
[2024-11-01 03:15] LABS: Absolute Lymphocyte Count 1.44 X10^3/uL (0.83-4.51); Absolute Neutrophil Count 4.9 X10^3/uL (2.0-7.7); Basophil# 0.03 X10^3/uL; Basophil% 0.4 % (0-1); Hematocrit 32.8 % (40-54); Hemoglobin 9.1 g/dL (13.0-16.5); Lymphocyte # 1.44 X10^3/ul (0.83-4.51); Mean Corp Hgb Conc 27.7 g/dL (32-36); Mean Corpuscular Hgb 22.5 pg (27.0-32.0); Mean Corpuscular Volume 81.2 fL (80-94); Mean Platelet Vol. 9.4 fl (6.2-12.0); Monocyte% 11.9 % (0-10); NRBC Flagged by Analyzer 0 % (0-5); Neutrophil # 4.86 X10^3/uL (2.7-7.7); Neutrophil % 64.3 % (47-70); Platelet Count 241 K/mm3 (150-450); RBC Distribution Width CV 18.9 % (11.6-14.6); RBC Distribution Width SD 54.4 fl (35.1-43.9); Red Blood Count 4.04 M/mm3 (4.6-6.2); White Blood Count 7.6 K/mm3 (4.4-11.0)
[2024-11-01 04:01] LABS: Anion Gap 9 (5-15); BUN 21 mg/dL (4-19); BUN/Creat Ratio 29.2 RATIO (10-20); Calcium,Total 8.7 mg/dL (7.6-11.0); Carbon Dioxide 34.9 mmol/L (21.0-32.0); Chloride 92 mmol/L (98-108); Creatinine, Serum 0.71 mg/dL (0.70-1.20); EST Glomerular Filtration Rate 107 (>60); Estimated Creatinine Clearance 153.76 ml/min (50-250); Glucose 152 mg/dL (70-99); Potassium 3.8 mmol/L (3.3-5.1); Sodium Level 136 mmol/L (133-145); Vancomycin, Trough Level 19.4 ug/mL (5.0-15.0)
--- NOTE | 2024-11-01 04:17 | PCM.RX.CS ---
Consult Antibiotic Management Pharmacy has been consulted to manage selected antibiotic: Vancomycin Type of Intervention Type of Consult: Follow-up Suspected Infection Suspected Infection: Pneumonia Labs Labs: Sodium 136 mmol/L (133-145) 11/01/24 03:05 Potassium 3.8 mmol/L (3.3-5.1) 11/01/24 03:05 Chloride 92 mmol/L (98-108) L 11/01/24 03:05 Carbon Dioxide 34.9 mmol/L (21.0-32.0) H 11/01/24 03:05 Anion Gap 9 (5-15) 11/01/24 03:05 BUN 21 mg/dL (4-19) H 11/01/24 03:05 Creatinine 0.71 mg/dL (0.70-1.20) 11/01/24 03:05 Est GFR (MDRD) Non-Af 107 (>60) 11/01/24 03:05 BUN/Creatinine Ratio 29.2 RATIO (10-20) H 11/01/24 03:05 Glucose 152 mg/dL (70-99) H 11/01/24 03:05 Vancomycin Trough 19.4 ug/mL (5.0-15.0) H 11/01/24 03:05 Random Vancomycin 13.6 ug/mL (0.0-15.0) 10/31/24 02:25 Microbiology Microbiology: Microbiology 10/29/24 11:09 Blood Culture (Wb) - Left Hand Blood Culture - Preliminary No growth in 48 hours. 10/29/24 10:33 Blood Culture (Wb) - Left Hand Blood Culture - Preliminary No growth in 48 hours. 10/29/24 20:25 Sputum, Expectorated/Coughed Gram Stain - Final 10/29/24 20:25 Sputum, Expectorated/Coughed Respiratory Culture - Preliminary Appears to be normal respiratory beverly. Further studies to follow. 10/29/24 11:20 Urine, Clean Catch Urine Culture - Preliminary Pseudomonas aeruginosa Enterococcus faecalis 10/29/24 11:20 Urine Catheter - Campbell Streptococcus pneumoniae Antigen (M - Final 10/29/24 11:20 Urine Catheter - Campbell Legionella Antigen - Final 10/29/24 15:23 Mucosa - Nasopharyngeal Respiratory Panel (PCR) - Final 10/29/24 11:04 Mucosa - Nose SARS-CoV-2, Influenza & RSV (PCR) - Final Dosing Weight Weight used for dosin.6 kg Estimated Creatinine Clearance Estimated Creatinine Clearance: 154 Goal Trough Goal Trough: 15-20 mcg/mL Pharmacy Plan for Drug Dosing Pharmacy Plan for Drug Dosing: Vancomycin trough level of 19.4, drawn 8.3hrs post-dose, was within the target range of 15-20. Will continue dosing at 1000mg q8h, and will draw another trough in two days. Pharmacy Service will continue to monitor and adjust dosing as required. Follow-Up Labs Follow-Up Labs: Trough: Vancomycin Date/Time Labs Ordered Labs to be done on [date and time ordered]: 11/03/24 @0300
[2024-11-01] MEDS: Vancomycin IV 1,000 MG/200 ML BAG 200 MG IV (04:19)
[2024-11-01] MEDS: Piperacil/Tazobactam 3.375 GM in 0.9% Normal Saline (50mL MB+) 50 ML IV ×2 (05:57→13:16)
[2024-11-01] MEDS: morphine SR 15 MG Tablet 30 MG PO ×3 (05:59→21:52)
[2024-11-01] MEDS: Ipratropium/Albuterol Sulfate 3 ML AMPUL.NEB INHALATION ×4 (07:06→19:23)
[2024-11-01 08:36] LABS: Bedside Glucose 200 mg/dL (74-106)
--- NOTE | 2024-11-01 08:48 | PCM.PN.INT ---
Assessment & Plan Assessment/Plan (1) Acute on chronic respiratory failure with hypoxia and hypercapnia: PLAN: Plan RECOMMENDATIONS: 1. Continue to wean supplemental oxygen to maintain saturation is 88 to 92%. 2. BiPAP therapy with naps and nightly. 3. Antimicrobials per ID recommendations. 4. Aggressive bronchopulmonary hygiene. 5. Diuretics per home regimen. 6. Compliance with outpatient PAP therapy is strongly recommended. IMPRESSIONS: 1. Acute on chronic combined respiratory failure The patient was recently hospitalized with human metapneumovirus infection with secondary bacterial pneumonia. He presented to the hospital with worsening hypoxemia with radiographic evidence of a persistent right lower lobe consolidation and atelectasis. At this time, I agree with continuing empiric broad-spectrum antimicrobials to cover for healthcare associated pneumonia. In addition to the aforementioned, the patient's urinalysis was also concerning for possible infection as well. The patient is currently maintaining appropriate oxygen saturations on 5 L/min, which is his baseline. Unfortunately, the patient does have a known history of sleep apnea, but has been noncompliant with the use of BiPAP therapy at his nursing facility. I would recommend that we continue aggressive bronchopulmonary hygiene and utilize BiPAP therapy with naps and nightly to assist with alveolar recruitment. 2. Obstructive sleep apnea/alveolar hypoventilation secondary to obesity Continue BiPAP support with naps and nightly. Prior to discharge, the functional status of the patient's BiPAP machine will need to be verified with the alf facility. 3. History of paraplegia related to L1 injury/chronic pain syndrome/morbid obesity Complicates care, management, recovery and prognosis. Continue supportive measures as noted above along with BiPAP therapy, per outpatient regimen. This note was generated with [employer] dictation software. It may contain incorrect words, spelling, and punctuation that were not noted in checking the note before signing. Subjective Subjective The patient was seen and examined at the bedside this morning. Events from the last 24 hours have been reviewed. The patient is currently afebrile, hemodynamically stable and maintaining appropriate oxygen saturations on 5 L/min via nasal cannula. The patient is doing well clinically and has no specific complaints. White blood cell count is normal. Creatinine is within normal limits. Objective Data Objective Data The patient's most recent lab work, culture data and imaging studies have all been personally reviewed. Surface echocardiogram from September 2024 demonstrated an ejection fraction of 55 to 60%. Blood and sputum cultures have not demonstrated any growth to date. Urine culture was positive for Enterococcus at 80-100,000 CFU per mL. Vital Signs: Vital Signs Temp Pulse Resp BP Pulse Ox O2 Del Method O2 Flow Rate 97.0 F L 97 16 143/80 H 93 Nasal Cannula 5 11/01/24 03:46 11/01/24 07:07 11/01/24 07:07 11/01/24 03:46 11/01/24 07:07 11/01/24 07:07 11/01/24 07:07 FiO2 40 11/01/24 05:40 Oxygen Flow Rate (L/min) 5 Oxygen Delivery Method Nasal Cannula Weight: 303 lb 5.697 oz Body Mass Index (BMI) 47.5 Intake & Output: Intake and Output for Last 24 Hours 10/30/24 10/31/24 11/01/24 23:59 23:59 23:59 Intake Total 1640 / 1640 1470 / 1470 250 / 250 Output Total 5050 / 5050 4550 / 4550 900 / 900 Balance -3410 / -3410 -3080 / -3080 -650 / -650 Lab / Micro Data Attestation: I reviewed the patient's lab results. 11/01/24 03:05 11/01/24 03:05 Labs: Laboratory Results - last 24 hr 10/31/24 09:34: POC Glucose 171 H 10/31/24 10:01: WBC 7.2, RBC 3.93 L, Hgb 8.7 L, Hct 32.1 L, MCV 81.7, MCH 22.1 L, MCHC 27.1 L, RDW Std Deviation 55.4 H, RDW Coeff of Mary 18.8 H, Plt Count 251, MPV 9.6, Immature Gran % (Auto) 0.400, Neut % (Auto) 69.6, Lymph % (Auto) 16.4 L, Yell % (Auto) 9.9, Eos % (Auto) 3.1, Baso % (Auto) 0.6, Absolute Neuts (auto) 5.0, Absolute Lymphs (auto) 1.18, Nucleated RBC % 0, Sodium 138, Potassium 3.9, Chloride 93 L, Carbon Dioxide 36.7 H, Anion Gap 8, BUN 17, Creatinine 0.64 L, Estim Creat Clear Calc 170.58, Est GFR (MDRD) Non-Af 111, BUN/Creatinine Ratio 26.8 H, Glucose 177 H, Calcium 8.7 10/31/24 11:16: POC Glucose 180 H 10/31/24 16:36: POC Glucose 171 H 10/31/24 21:43: POC Glucose 169 H 11/01/24 03:05: WBC 7.6, RBC 4.04 L, Hgb 9.1 L, Hct 32.8 L, MCV 81.2, MCH 22.5 L, MCHC 27.7 L, RDW Std Deviation 54.4 H, RDW Coeff of Mary 18.9 H, Plt Count 241, MPV 9.4, Immature Gran % (Auto) 0.400, Neut % (Auto) 64.3, Lymph % (Auto) 19.0, Yell % (Auto) 11.9 H, Eos % (Auto) 4.0, Baso % (Auto) 0.4, Absolute Neuts (auto) 4.9, Absolute Lymphs (auto) 1.44, Nucleated RBC % 0, Sodium 136, Potassium 3.8, Chloride 92 L, Carbon Dioxide 34.9 H, Anion Gap 9, BUN 21 H, Creatinine 0.71, Estim Creat Clear Calc 153.76, Est GFR (MDRD) Non-Af 107, BUN/Creatinine Ratio 29.2 H, Glucose 152 H, Calcium 8.7, Vancomycin Trough 19.4 H 11/01/24 08:18: POC Glucose 200 H Micro: Microbiology 10/29/24 20:25 Sputum, Expectorated/Coughed Gram Stain - Final 10/29/24 20:25 Sputum, Expectorated/Coughed Respiratory Culture - Final Mixed normal respiratory beverly. No Streptococcus pneumoniae, beta-hemolytic Streptococcus or Staphylococcus aureus isolated. 10/29/24 11:20 Urine, Clean Catch Urine Culture - Final Pseudomonas aeruginosa Enterococcus faecalis 10/29/24 11:09 Blood Culture (Wb) - Left Hand Blood Culture - Preliminary No growth in 48 hours. 10/29/24 10:33 Blood Culture (Wb) - Left Hand Blood Culture - Preliminary No growth in 48 hours. 10/29/24 11:20 Urine Catheter - Campbell Streptococcus pneumoniae Antigen (M - Final 10/29/24 11:20 Urine Catheter - Campbell Legionella Antigen - Final 10/29/24 15:23 Mucosa - Nasopharyngeal Respiratory Panel (PCR) - Final 10/29/24 11:04 Mucosa - Nose SARS-CoV-2, Influenza & RSV (PCR) - Final Physical Exam Const alert, oriented x3 and no apparent distress Constitutional Narrative: Morbidly obese. General Appearance: cooperative HEENT normocephalic, head/scalp atraumatic and moist oral mucous membranes Eyes PERRL, EOMs intact bilaterally and conjunctivae normal Neck supple General: trachea midline Chest inspection of chest normal Resp Auscultation: diminished lung sounds; Negative for rales, rhonchi or wheezes Cardio regular rate and regular rhythm GI soft to palpation and non-tender Extremity no clubbing, cyanosis or edema Skin no rashes or lesions noted Neuro CN's II-XII intact bilaterally Psych cooperative and affect normal Charges/Coding Visit Charges Inpatient E&M: 89712 Subs Hosp L2
[2024-11-01] MEDS: Methocarbamol 500 MG Tablet 1000 MG PO ×2 (09:21→20:19)
[2024-11-01] MEDS: Insulin Lispro 100 UNIT/ML INSULN.PEN SC ×6 (09:21→21:57)
[2024-11-01] MEDS: Carvedilol 12.5 MG Tablet PO ×2 (09:25→17:24)
[2024-11-01] MEDS: DULoxetine Hcl 60 MG Capsule PO (09:25)
[2024-11-01] MEDS: Loratadine 10 MG Tablet PO (09:25)
[2024-11-01] MEDS: Furosemide 40 MG Tablet PO ×2 (09:26→21:55)
[2024-11-01] MEDS: APIXABAN 5 MG TABLET PO ×2 (09:26→21:54)
[2024-11-01] MEDS: Pantoprazole Sodium 40 MG Tablet PO (09:26)
[2024-11-01] MEDS: Senna Tablet 2 TABLET PO ×2 (09:26→21:55)
[2024-11-01] MEDS: Polyethylene Glycol 3350 17 GM PACKET PO ×2 (09:26→21:55)
[2024-11-01] MEDS: Juven (unflavored) Packet 1 PACKET PO ×2 (09:26→21:55)
[2024-11-01] MEDS: guaiFENesin 600 MG Tablet PO ×2 (09:26→21:55)
[2024-11-01] MEDS: Glycerin/Hypromellose/PEG400 15 ml Bottle 1 DRP EACH EYE ×2 (09:34→21:53)
[2024-11-01] MEDS: Fluticasone 0.05% 1 SPRAY NASAL.SRY NASAL ×2 (09:34→21:52)
[2024-11-01] MEDS: Acetaminophen 325 MG Tablet 650 MG PO ×2 (09:40→17:25)
[2024-11-01] MEDS: Ondansetron 4 MG/2 ML Vial IV (09:41)
--- NOTE | 2024-11-01 10:26 | CON.PCM.ID_ITS ---
Assessment & Plan Assessment/Plan (1) Acute on chronic respiratory failure with hypoxia and hypercapnia: (2) Pneumonia: PLAN: Sx improving. UAgs neg. Bcx neg. Sputum cx neg. Resp pcr panel neg. Denies dysuria, UA with 0-5 wbc but ucx with small amount PsA and moderate enterococcus. Will stop vanc. Cont zosyn for now. Will follow, thank you HPI Consult Data Date of Consult: 11/01/24 HPI Narrative Reason for Consultation: pneumonia HPI Narrative: MELISSA ELIAS, is a 59 M with chronic resp failure, admitted 10/12-10/16 with human metapneumovirus and suspected bacterial pneumonia. Discharged to [facility] with one week augmentin. Over past few days, increased cough with yellow sputum, dyspnea, and hypoxia. Admitted from ED on vanc/zosyn, seen by pulm, feeling better. Full ROS performed and neg except as noted above. [facility] Medical History VRE (vancomycin resistant enterococcus) culture positive Decubitus ulcer of sacral region, stage 4 Lymphedema BATOOL treated with BiPAP Abscess of back Constipation Pressure ulcer of sacral region Chronic indwelling Campbell catheter Blood loss anemia Clot retention of urine Pressure injury, unstageable, with eschar Bilateral pulmonary embolism Rhabdomyolysis Community acquired pneumonia Hypoglycemia Acute osteomyelitis of spine Former tobacco use Paraplegia Cellulitis of leg without foot, right Anemia BMI greater than 40 Type 2 diabetes mellitus HTN (hypertension) H/o back surgery Home Medications ?Medication ?Instructions ?Recorded ?Last Taken ?Type fluticasone propionate 50 1 spray intranasal DAILY haim rtness 03/03/20 Unknown History mcg/actuation nasal of breath spray,suspension (Flonase Allergy Relief) apixaban 5 mg tablet (Eliquis) 5 mg PO BID 07/29/23 History methocarbamol 500 mg tablet 1,000 mg PO BID PRN cramps 07/29/23 08/31/23 History polyethylene glycol 3350 17 17 g PO BID constipation 0 07/29/23 07/29/23 History gram/dose oral powder (ClearLax) pantoprazole 40 mg tablet,delayed 40 mg PO DAILY stoma ch 08/31/23 08/31/23 History release aluminum-mag hydroxide-simethicone 30 ml PO Q6H PRN ND N Gastric 09/13/23 Unknown Rx 400 mg-400 mg-40 mg/5 mL oral susp Burning #0 mL (Mag-Al Plus Extra Strength) amlodipine 10 mg tablet 10 mg PO DAILY #0 tabs 09/12 Unknown Rx carvedilol 12.5 mg tablet 12.5 mg PO BIDCM #0 tabs Unknown Rx diphenhydramine HCl 25 mg capsule 25 mg PO TID PRN PRN Itching #0 09/13/23 Unknown Rx (Banophen) caps peg [id number] 1 1 drp EACH EYE BID dry eyes #0 mL 09/13/23 Unknown Rx %-0.2 %-0.2 % eye drops (Artificial Tears ([id number])) polysaccharide iron complex 150 mg 150 mg PO .QOD supp lement 10/15/23 Unknown History iron capsule (Ferrex) sennosides 8.6 mg-docusate sodium 2 tab PO BID Constip ation 10/15/23 Unknown History 50 mg tablet (Stool Softener-Stimulant Laxative) insulin lispro 100 unit/mL See Protocol subcut ACHS bl ood 10/23/23 Unknown History subcutaneous pen (Humalog KwikPen sugars (U-100) Insulin) loratadine 10 mg tablet 10 mg PO DAILY allergies 02/06 Unknown History (Allerclear) albuterol sulfate 2.5 mg/3 mL 2.5 mg inhalation BID wh eezing 10/25/23 Unknown History (0.083 %) solution for nebulization arginine 7 gram-glutamine 7 1 ea PO BID wound healing 03/22/24 Unknown History gram-calcium HMB 1.5 gram oral powder pack (Wiliam) amino acids-protein hydrolysate 15 30 ml PO BID Unknown History gram-100 kcal/30 mL oral liquid (Pro-Stat Sugar Free) ascorbic acid (vitamin C) 500 mg 500 mg PO QODAY suppl ement 03/26/24 Unknown History tablet chlorhexidine gluconate 4 % 1 applic topical .twice a week 03/26/24 Unknown History topical liquid (Hibiclens) unknown dextrose 40 % oral gel (Glucose 10 g PO Q15M PRN hypog lycemia 03/26/24 Unknown History Gel) naloxone 0.4 mg/mL injection 0.4 mg IM Q5M PRN opioid reversal 03/26/24 Unknown History syringe ondansetron 4 mg disintegrating 4 mg PO Q4H PRN nausea 03/26/24 Unknown History tablet sodium chloride 0.65 % nasal mist 2 spray intranasal Q 2H PRN dry 03/26/24 Unknown History nasal passages dulaglutide 3 mg/0.5 mL 3 mg subcut QWEEK diabetes 0 07/18/24 Unknown History subcutaneous pen injector (Trulicity) duloxetine 30 mg capsule,delayed 60 mg PO QDAY mood 10/28/24 History release insulin glargine 100 unit/mL 14 unit subcut DAILY diab etes 07/18/24 Unknown History subcutaneous solution (Lantus mellitus type 2 U-100 Insulin) insulin lispro 100 unit/mL 12 unit subcut .ac diabetes 07/18/24 Unknown History subcutaneous solution metformin 500 mg tablet 1,000 mg PO BID diabetes 10/07 Unknown History fenofibrate 54 mg tablet 54 mg PO QHS cholesterol 09/07 Unknown History nystatin 100,000 unit/gram topical 1 applic topical TI D rednes 08/17/24 Unknown History powder morphine 30 mg capsule,extended 30 mg PO Q12H pain 30 days #60 caps 10/10/24 Unknown Rx release pellets ([place]) acetaminophen 325 mg capsule 650 mg PO Q6H pain Unknown History acetic acid 0.25 % irrigation 30 ml irrigation BID sup rapubic 10/12/24 Unknown History solution cath artificial 1 drp EACH EYE BID PRN dry e yes 10/12/24 Unknown History tears(jbenuzh-zgwgscjz-mattabp) 0.1 %-0.3 %-0.2 % eye drops (GenTeal Tears Moderate) glipizide 2.5 mg tablet, extended 2.5 mg PO DAILY diab etes 10/12/24 Unknown History release 24 hr simethicone 80 mg chewable tablet 80 mg PO .ACTID PRN gas 10/12/24 Unknown History (Gas Relief (simethicone)) sodium hypochlorite 0.25 % 1 applic topical BID wound 10/12/24 Unknown History solution (Dakin's Solution) furosemide 20 mg tablet 40 mg (2 x 20 mg) PO BID #30 tabs 10/16/24 Unknown Rx lorazepam 1 mg tablet 1 mg PO DAILY PRN anxiety #7 tabs 10/16/24 Unknown Rx oxycodone 10 mg tablet 5 mg PO .QID pain 10/29/24 U nknown History Allergy/AdvReac Type Severity Reaction Status Date / Time No Known Allergies Allergy Verified 10/12/24 07:34 Family History Mother Hypertension Hypotension Diabetes Arthritis Father Hypertension Hypotension Heart disease Status post double vessel coronary artery bypass angina Arthritis Grandfather Prostate cancer Grandmother Uterine cancer Surgical History History of hip replacement Colostomy status Hx of spinal surgery H/O sinus surgery Social History housing: custodial current occupational status: employed and retired Smoking Status: Former smoker alcohol intake: never substance use type: does not use do you feel safe at home: Yes Physical Exam Const alert, oriented x3 and no apparent distress General Appearance: cooperative HEENT normocephalic and head/scalp atraumatic Eyes PERRL and EOMs intact bilaterally Neck supple and No nodes Resp Auscultation: diminished lung sounds Cardio regular rate and regular rhythm GI soft to palpation, non-tender and non-distended Extremity General Extremity: Negative for edema Skin no rashes or lesions noted Neuro CN's II-XII intact bilaterally Lab / Micro Data Attestation: I reviewed the patient's lab results. 11/01/24 03:05 11/01/24 03:05 Labs: Laboratory Results - last 24 hr 10/31/24 10:01: Sodium 138, Potassium 3.9, Chloride 93 L, Carbon Dioxide 36.7 H, Anion Gap 8, BUN 17, Creatinine 0.64 L, Estim Creat Clear Calc 170.58, Est GFR (MDRD) Non-Af 111, BUN/Creatinine Ratio 26.8 H, Glucose 177 H, Calcium 8.7 10/31/24 11:16: POC Glucose 180 H 10/31/24 16:36: POC Glucose 171 H 10/31/24 21:43: POC Glucose 169 H 11/01/24 03:05: WBC 7.6, RBC 4.04 L, Hgb 9.1 L, Hct 32.8 L, MCV 81.2, MCH 22.5 L , MCHC 27.7 L, RDW Std Deviation 54.4 H, RDW Coeff of Mary 18.9 H, Plt Count 241, MPV 9.4, Immature Gran % (Auto) 0.400, Neut % (Auto) 64.3, Lymph % (Auto) 19.0, [place] % (Auto) 11.9 H, Eos % (Auto) 4.0, Baso % (Auto) 0.4, Absolute Neuts (auto) 4.9, Absolute Lymphs (auto) 1.44, Nucleated RBC % 0, Sodium 136, Potassium 3.8, Chloride 92 L, Carbon Dioxide 34.9 H, Anion Gap 9, BUN 21 H, Creatinine 0.71, Estim Creat Clear Calc 153.76, Est GFR (MDRD) Non-Af 107, BUN/Creatinine Ratio 29.2 H, Glucose 152 H, Calcium 8.7, Vancomycin Trough 19.4 H 11/01/24 08:18: POC Glucose 200 H Micro: Microbiology 10/29/24 20:25 Sputum, Expectorated/Coughed Gram Stain - Final 10/29/24 20:25 Sputum, Expectorated/Coughed Respiratory Culture - Final Mixed normal respiratory beverly. No Streptococcus pneumoniae, beta-hemolytic Streptococcus or Staphylococcus aureus isolated. 10/29/24 11:20 Urine, Clean Catch Urine Culture - Final Pseudomonas aeruginosa Enterococcus faecalis 10/29/24 11:09 Blood Culture (Wb) - Left Hand Blood Culture - Preliminary No growth in 48 hours. 10/29/24 10:33 Blood Culture (Wb) - Left Hand Blood Culture - Preliminary No growth in 48 hours.
[2024-11-01] MEDS: DAKIN'S SOL HALF STRENGTH (=0.25%) TOPICAL ×2 (12:10→21:58)
[2024-11-01 12:13] LABS: Bedside Glucose 209 mg/dL (74-106)
--- NOTE | 2024-11-01 14:39 | PCM.TXEXTCAR ---
Diet Diet Order/Speech Therapy: INPATIENT Hospital Diet / Speech Therapy Order(s) 10/29/24 16:28 Diet: Consistent Carb - Calorie Controlled Food consistency:: Regular Liquid Consistency:: Regular/Thin Dietary Modifications:: Sodium Restricted How many daily calories?: 2000 calorie Routine Orders/Code Status Suppository Type: Dulcolax 10mg Suppository Frequency: Daily PRN Code Status: Full Code DC O2, CPAP, BIPAP needs Home O2 Discharge instructions: Yes Type of respiratory needs?: Oxygen Oxygen frequency: Continuous Continuous oxygen liters per minute: 5 and BiPAP BiPAP instructions: Continue previous settings Wound(s) coccyx: Wound Type: Pressure Injury left heel: Wound Type: Pressure Injury Dressing Change: Adaptic Right heel: Wound Type: Pressure Injury right lateral foot: Wound Type: Pressure Injury Dressing Change: Adaptic sacrum: Wound Type: Pressure Injury Dressing Change: Dakins moistened gauze right buttock: Wound Type: Pressure Injury Dressing Change: Adaptic with Dakins moistened gauze Problem/Diagnosis (1) Acute on chronic respiratory failure with hypoxia and hypercapnia: Status: Chronic Code(s): J96.21 - Acute and chronic respiratory failure with hypoxia; J96.22 - Acute and chronic respiratory failure with hypercapnia Plan # Acute on chronic combined respiratory failure secondary to pneumonia and possible suboptimal use of BiPAP #BATOOL #Abnormal UA w/ enteroccoccus and pseudomonas # Paraplegia with chronic pain syndrome #Morbid obesity #Type 2 diabetes mellitus #pressure injuries -to right buttocks-stage IV, sacrum, stage II right lateral foot, stage II left heel #GERD 59-year-old male with history as above presented [facility] ED 10/29/2024 with worsening hypoxia. Had recently been hospitalized here 10/12 through 10/16 for acute hypoxic respiratory failure secondary to human metapneumovirus with concern for superimposed bacterial pneumonia and acute on chronic heart failure. He was ultimately discharged back to SNF and oxygen requirements improved however he came back to the ED with nursing hypoxia and was placed on high flow. Imaging suggestive of pneumonia patient started on IV antibiotics and pulmonology consulted, patient was slowly weaned down and improved back to 5 L. There was question of a problem with the BiPAP but nursing facility confirmed that it is working and it was recommended strict compliance with this. Of note patient had UA when he came in that incidentally had somewhat low colony counts of Pseudomonas but 80-100,000 Enterococcus with various resistance patterns. ID consulted for assistance, initially vancomycin discontinued and patient continued on Zosyn however given he is stable from respiratory standpoint and pulmonology okay with discharge did contact ID physician who recommended Levaquin as that will cover pulmonary and urinary source and recommended 4 more days. On day of discharge patient overall feeling much better with significantly improved shortness of breath, resting comfortably. No new or acute complaints. Had a little bit of nausea earlier but resolved with Zofran and was given MiraLAX as he felt he is beginning a to get constipated but is now feeling well. Patient agreeable discharge with no new acute complaints. Discharge instructions as follows: DISCHARGE INSTRUCTIONS PLEASE READ *Please take this with you to your next doctors appointment* -You will be discharged on additional 4 days of Levaquin to cover pneumonia and possible urinary tract infection - It is important that you use your BiPAP nightly and if there are any other concerns of the BiPAP please follow-up with your physician who previously coordinated this -Per speech therapy recommendations he may benefit from following up with GI for an evaluation for reflux due to risk of reflux aspiration, it is recommended to follow-up with GI in an outpatient basis once acute illness has resolved -Please continue to follow with the wound care center on discharge -Please call your primary care provider's office upon discharge to schedule a hospital follow up within 1 week. -For any concerning signs or symptoms please call 911 or proceed to the nearest emergency department Allergies/Procedures Done in Hospital Allergies No Known Allergies Allergy (Verified 10/12/24 07:34) Type of Care/Length of Stay Estimated LOS: More Than 30 Days Type of Care Needed: Intermediate Rehab Potential: Poor Prognosis: Poor Additional Orders/Day of Discharge Day of Discharge: 11/01/24 Dietary and Speech Recommendations Dietitian Recommendations/Changes: Will adjust diet to 2000CCD and sodium restriction with Wiliam BID to manage blood sugars and promote wound healing Discharge Plan Admission Admit Date/Time: 10/29/24 14:30 Primary Reason for Your Visit: Worsening hypoxia, pneumonia Attending Provider: Le Wiggins Primary Care Provider: Rhona Bartlett Consulting Providers: Bryant Day; Josef Storey; Cristi Gann; Tez Tuttle; Torrey Campo; Elio Soto; Titus Fletcher; Alysha Cameron; Brien Martinez; Jean Mejía; Paresh Mendoza; Sully Rebolledo; Dimitris Chacko; Radha Still; Bunny Hughes; Juaquin York; Americo Bryan; Lambert,Ahsan; Doni Gonzalez; Dee Ellsworth; Manuelito Porter; Georgi Sanz; Alex Martinez; Percy Price; Hugo Parra; Jewel Cm Instructions Patient Instructions: Using a BPAP Additional Instructions / Restrictions: DISCHARGE INSTRUCTIONS PLEASE READ *Please take this with you to your next doctors appointment* -You will be discharged on additional 4 days of Levaquin to cover pneumonia and possible urinary tract infection - It is important that you use your BiPAP nightly and if there are any other concerns of the BiPAP please follow-up with your physician who previously coordinated this -Per speech therapy recommendations he may benefit from following up with GI for an evaluation for reflux due to risk of reflux aspiration, it is recommended to follow-up with GI in an outpatient basis once acute illness has resolved -Please continue to follow with the wound care center on discharge -Please call your primary care provider's office upon discharge to schedule a hospital follow up within 1 week. -For any concerning signs or symptoms please call 911 or proceed to the nearest emergency department Discharge Orders/Prescriptions Prescriptions: New levofloxacin 750 mg Tablet 750 mg PO DAILY 4 Days Qty: 0 0RF guaifenesin [Mucinex] 600 mg Tablet Extended Release 12hr 600 mg PO BID 7 Days Qty: 0 0RF Continued fluticasone propionate [Flonase Allergy Relief] 50 mcg/actuation spray,suspension 1 spray INTRANASAL DAILY Patient Comments: takes in once in awhile Rx Instructions: administer into each nostril Wiliam 7-7-1.5 gram powder in packet 1 ea PO BID naloxone 0.4 mg/mL syringe 0.4 mg IM Q5M PRN (Reason: opioid reversal) Rx Instructions: NTExceed 10 mg total dose/episode ondansetron 4 mg tablet,disintegrating 4 mg PO Q4H PRN (Reason: nausea) metformin 500 mg tablet 1,000 mg PO BID duloxetine 30 mg capsule,delayed release(DR/EC) 60 mg PO QDAY Pro-Stat Sugar Free 15-100 gram-kcal/30 mL liquid 30 ml PO BID dextrose [Glucose Gel] 40 % gel 10 g PO Q15M PRN (Reason: hypoglycemia) Rx Instructions: until symptoms of low blood sugar are controlled chlorhexidine gluconate [Hibiclens] 4 % liquid 1 applic topical .twice a week Rx Instructions: tuesday and sodium chloride 0.65 % mist 2 spray intranasal Q2H PRN (Reason: dry nasal passages) ascorbic acid (vitamin C) 500 mg tablet 500 mg PO QODAY Trulicity 3 mg/0.5 mL pen injector 3 mg subcut QWEEK Rx Instructions: once a week on Mondays pantoprazole 40 mg tablet,delayed release (DR/EC) 40 mg PO DAILY alum-mag hydroxide-simeth [Mag-Al Plus Extra Strength] 400-400-40 mg/5 mL Suspension 30 ml PO Q6H PRN PRN (Reason: Gastric Burning) Qty: 0 0RF Artificial Tears(mr-oryn-tyvi) 1-0.2-0.2 % Drops 1 drp EACH EYE BID Qty: 0 0RF carvedilol 12.5 mg Tablet 12.5 mg PO BIDCM Qty: 0 0RF amlodipine 10 mg Tablet 10 mg PO DAILY Qty: 0 0RF diphenhydramine HCl [Banophen] 25 mg Capsule 25 mg PO TID PRN PRN (Reason: Itching) Qty: 0 0RF polysaccharide iron complex [Ferrex 150] 150 mg iron Capsule 150 mg PO .QOD sennosides-docusate sodium [Stool Softener-Stimulant Laxat] 8.6-50 mg Tablet 2 tab PO BID albuterol sulfate 2.5 mg /3 mL (0.083 %) solution for nebulization 2.5 mg inhalation BID Rx Instructions: And q4hr prn methocarbamol 500 mg tablet 1,000 mg PO BID PRN (Reason: cramps) Eliquis 5 mg tablet 5 mg PO BID polyethylene glycol 3350 [ClearLax] 17 gram/dose powder 17 g PO BID insulin glargine [Lantus U-100 Insulin] 100 unit/mL solution 14 unit subcut DAILY insulin lispro 100 unit/mL solution 12 unit subcut .ac loratadine [Allerclear] 10 mg tablet 10 mg PO DAILY Rx Instructions: am insulin lispro [Humalog KwikPen Insulin] 100 unit/mL Insulin Pen See Protocol subcut ACHS Protocol: 6. Sliding Scale Insulin Custom Condition: mg/dl range Dose/Route: Number of Units Condition: 251-350 Dose/Route: 2 Condition: >350 Dose/Route: 4 Protocol Text: Custom Sliding Scale Rx Instructions: 12 units before meals nystatin 100,000 unit/gram powder 1 applic topical TID fenofibrate 54 mg tablet 54 mg PO QHS simethicone [Gas Relief (simethicone)] 80 mg tablet,chewable 80 mg PO .ACTID PRN (Reason: gas) acetic acid 0.25 % solution 30 ml irrigation BID Patient Comments: [NO ORIGINAL SIG] Dakin's Solution 0.25 % solution 1 applic topical BID artificial tear([id number]) [GenTeal Tears Moderate] 0.1-0.3-0.2 % drops 1 drp EACH EYE BID PRN (Reason: dry eyes) acetaminophen 325 mg capsule 650 mg PO Q6H glipizide 2.5 mg tablet extended release 24hr 2.5 mg PO DAILY furosemide 20 mg tablet 40 mg PO BID Qty: 30 0RF morphine [[place]] 30 mg capsule,extend.release pellets 30 mg PO Q12H 30 Days Qty: 60 0RF Changed oxycodone 10 mg tablet 5 mg PO Q6H PRN (Reason: pain) 3 Days Qty: 6 0RF Discontinued lorazepam 1 mg tablet 1 mg PO DAILY PRN (Reason: anxiety) Qty: 7 0RF Referrals / Follow Up: Rhona Bartlett MD [Primary Care Provider] - Within 1 Week Bridger Benson DO [Med Staff - Active Staff] - (-Per speech therapy recommendations he may benefit from following up with GI for an evaluation for reflux due to risk of reflux aspiration, it is recommended to follow-up with GI in an outpatient basis once acute illness has resolved) Disposition Disposition (needs filled in before D/C Order can be placed): [facility]
--- NOTE | 2024-11-01 14:46 | DS.PCM_ITS ---
Providers Date of Admission: 10/29/24 Date of Discharge: 11/01/24 Primary Care Physician: Dr. Rhona Bartlett MD Consultations 10/29/24 16:28 Consult: Manager Rn Case / Pulmonary Medicine Routine Consulting Provider: Intensivists/Pulmonary Med Reason for Consult: acute on chronic resp failure, worsening RLL pna vs mucus plugging EMERGENT Consult: No MD Notified: Yes Date Notified: 10/29/24 Time Notified: 16:39 Method of Notification: Answering Service 10/30/24 05:33 Consult: Onc/Wound/production estimator Routine Comment: Reason for Consult:: coccyx wound 11/01/24 08:54 Consult: Infectious Disease Routine Consulting Provider: Jewel Cm Reason for Consult: polymicrobial UTI w/ resistance pattern likely d/c, ?abx recs, also PNA EMERGENT Consult: No MD Notified: Yes Date Notified: 11/01/24 Time Notified: 08:54 Method of Notification: Text Reason For Visit: ACUTE ON CHRONIC RESP FAILURE DUE TO PNEUMONIA Diagnosis Discharge Diagnosis (1) Acute on chronic respiratory failure with hypoxia and hypercapnia: Status: Chronic Code(s): J96.21 - Acute and chronic respiratory failure with hypoxia; J96.22 - Acute and chronic respiratory failure with hypercapnia Plan # Acute on chronic combined respiratory failure secondary to pneumonia and possible suboptimal use of BiPAP #BATOOL #Abnormal UA w/ enteroccoccus and pseudomonas # Paraplegia with chronic pain syndrome #Morbid obesity #Type 2 diabetes mellitus #pressure injuries -to right buttocks-stage IV, sacrum, stage II right lateral foot, stage II left heel #GERD Medications at Discharge Home Medications fluticasone propionate 50 mcg/actuation nasal spray,suspension (Flonase Allergy Relief) 1 spray intranasal DAILY shortness of breath 03/03/20 apixaban 5 mg tablet (Eliquis) 5 mg PO BID 07/29/23 methocarbamol 500 mg tablet 1,000 mg PO BID PRN cramps 07/29/23 polyethylene glycol 3350 17 gram/dose oral powder (ClearLax) 17 g PO BID constipation 07/29/23 pantoprazole 40 mg tablet,delayed release 40 mg PO DAILY stomach 08/31/23 aluminum-mag hydroxide-simethicone 400 mg-400 mg-40 mg/5 mL oral susp (Mag-Al Plus Extra Strength) 30 ml PO Q6H PRN PRN Gastric Burning #0 mL 09/13/23 amlodipine 10 mg tablet 10 mg PO DAILY #0 tabs 09/13/23 carvedilol 12.5 mg tablet 12.5 mg PO BIDCM #0 tabs 09/13/23 diphenhydramine HCl 25 mg capsule (Banophen) 25 mg PO TID PRN PRN Itching #0 caps 09/13/23 peg [id number] 1 %-0.2 %-0.2 % eye drops (Artificial Tears ([id number])) 1 drp EACH EYE BID dry eyes #0 mL 09/13/23 polysaccharide iron complex 150 mg iron capsule (Ferrex) 150 mg PO .QOD supplement 10/15/23 sennosides 8.6 mg-docusate sodium 50 mg tablet (Stool Softener-Stimulant Laxative) 2 tab PO BID Constipation 10/15/23 insulin lispro 100 unit/mL subcutaneous pen (Humalog KwikPen (U-100) Insulin) See Protocol subcut ACHS blood sugars 10/23/23 loratadine 10 mg tablet (Allerclear) 10 mg PO DAILY allergies 10/23/23 albuterol sulfate 2.5 mg/3 mL (0.083 %) solution for nebulization 2.5 mg inhalation BID wheezing 10/25/23 arginine 7 gram-glutamine 7 gram-calcium HMB 1.5 gram oral powder pack (Wiliam) 1 ea PO BID wound healing 03/22/24 amino acids-protein hydrolysate 15 gram-100 kcal/30 mL oral liquid (Pro-Stat Sugar Free) 30 ml PO BID 03/26/24 ascorbic acid (vitamin C) 500 mg tablet 500 mg PO QODAY supplement 03/26/24 chlorhexidine gluconate 4 % topical liquid (Hibiclens) 1 applic topical .twice a week unknown 03/26/24 dextrose 40 % oral gel (Glucose Gel) 10 g PO Q15M PRN hypoglycemia 03/26/24 naloxone 0.4 mg/mL injection syringe 0.4 mg IM Q5M PRN opioid reversal 03/26/24 ondansetron 4 mg disintegrating tablet 4 mg PO Q4H PRN nausea 03/26/24 sodium chloride 0.65 % nasal mist 2 spray intranasal Q2H PRN dry nasal passages 03/26/24 dulaglutide 3 mg/0.5 mL subcutaneous pen injector (Trulicity) 3 mg subcut QWEEK diabetes 07/18/24 duloxetine 30 mg capsule,delayed release 60 mg PO QDAY mood 07/18/24 insulin glargine 100 unit/mL subcutaneous solution (Lantus U-100 Insulin) 14 unit subcut DAILY diabetes mellitus type 2 07/18/24 insulin lispro 100 unit/mL subcutaneous solution 12 unit subcut .ac diabetes 07/18/24 metformin 500 mg tablet 1,000 mg PO BID diabetes 07/18/24 fenofibrate 54 mg tablet 54 mg PO QHS cholesterol 08/17/24 nystatin 100,000 unit/gram topical powder 1 applic topical TID rednes 08/17/24 morphine 30 mg capsule,extended release pellets ([place]) 30 mg PO Q12H pain 30 days #60 caps 10/10/24 acetaminophen 325 mg capsule 650 mg PO Q6H pain 10/12/24 acetic acid 0.25 % irrigation solution 30 ml irrigation BID suprapubic cath 10/12/24 artificial tears(qkzemlp-vhulpyag-utzifuw) 0.1 %-0.3 %-0.2 % eye drops (GenTeal Tears Moderate) 1 drp EACH EYE BID PRN dry eyes 10/12/24 glipizide 2.5 mg tablet, extended release 24 hr 2.5 mg PO DAILY diabetes 10/12/24 simethicone 80 mg chewable tablet (Gas Relief (simethicone)) 80 mg PO .ACTID PRN gas 10/12/24 sodium hypochlorite 0.25 % solution (Dakin's Solution) 1 applic topical BID wound 10/12/24 furosemide 20 mg tablet 40 mg (2 x 20 mg) PO BID #30 tabs 10/16/24 guaifenesin 600 mg tablet, extended release 12 hr (Mucinex) 600 mg PO BID 7 days #0 tabs 11/01/24 levofloxacin 750 mg tablet 750 mg PO DAILY 4 days #0 tabs 11/01/24 oxycodone 10 mg tablet 5 mg (1/2 x 10 mg) PO Q6H PRN pain 3 days #6 tabs 11/01/24 Hospital Course Summary of Care Provided Minutes Spent on Discharge: 32 Hospital Course: # Acute on chronic combined respiratory failure secondary to pneumonia and possible suboptimal use of BiPAP #BATOOL #Abnormal UA w/ enteroccoccus and pseudomonas # Paraplegia with chronic pain syndrome #Morbid obesity #Type 2 diabetes mellitus #pressure injuries -to right buttocks-stage IV, sacrum, stage II right lateral foot, stage II left heel #GERD 59-year-old male with history as above presented [facility] ED 10/29/2024 with worsening hypoxia. Had recently been hospitalized here 10/12 through 10/16 for acute hypoxic respiratory failure secondary to human metapneumovirus with concern for superimposed bacterial pneumonia and acute on chronic heart failure. He was ultimately discharged back to SNF and oxygen requirements improved however he came back to the ED with nursing hypoxia and was placed on high flow. Imaging suggestive of pneumonia patient started on IV antibiotics and pulmonology consulted, patient was slowly weaned down and improved back to 5 L. There was question of a problem with the BiPAP but nursing facility confirmed that it is working and it was recommended strict compliance with this. Of note patient had UA when he came in that incidentally had somewhat low colony counts of Pseudomonas but 80-100,000 Enterococcus with various resistance patterns. ID consulted for assistance, initially vancomycin discontinued and patient continued on Zosyn however given he is stable from respiratory standpoint and pulmonology okay with discharge did contact ID physician who recommended Levaquin as that will cover pulmonary and urinary source and recommended 4 more days. On day of discharge patient overall feeling much better with significantly improved shortness of breath, resting comfortably. No new or acute complaints. Had a little bit of nausea earlier but resolved with Zofran and was given MiraLAX as he felt he is beginning a to get constipated but is now feeling well. Patient agreeable discharge with no new acute complaints. Discharge instructions as follows: DISCHARGE INSTRUCTIONS PLEASE READ *Please take this with you to your next doctors appointment* -You will be discharged on additional 4 days of Levaquin to cover pneumonia and possible urinary tract infection - It is important that you use your BiPAP nightly and if there are any other concerns of the BiPAP please follow-up with your physician who previously coordinated this -Per speech therapy recommendations he may benefit from following up with GI for an evaluation for reflux due to risk of reflux aspiration, it is recommended to follow-up with GI in an outpatient basis once acute illness has resolved -Please continue to follow with the wound care center on discharge -Please call your primary care provider's office upon discharge to schedule a hospital follow up within 1 week. -For any concerning signs or symptoms please call 911 or proceed to the nearest emergency department Physical Exam Narrative General: Alert, oriented, no apparent distress HEENT: Atraumatic, normocephalic Eyes: Anicteric, normal conjunctiva, extraocular movements grossly intact Neck: Supple Respiratory: Normal respiratory effort, clear to auscultation bilaterally Cardiovascular: Regular rate and rhythm GI: Soft, nontender, nondistended Extremities: No significant pitting Musculoskeletal: Patient paraplegic at baseline, moves upper extremities Neuro: Patient paraplegic at baseline Skin: No rashes appreciated Psych: Cooperative Weight / BMI Weight Weight: 137.6 kg Body Mass Index (BMI) 47.5 ABG / Lab / Microbiology Data 11/01/24 03:05 11/01/24 03:05 Laboratory: Laboratory Results - last 24 hr 10/31/24 16:36: POC Glucose 171 H 10/31/24 21:43: POC Glucose 169 H 11/01/24 03:05: WBC 7.6, RBC 4.04 L, Hgb 9.1 L, Hct 32.8 L, MCV 81.2, MCH 22.5 L , MCHC 27.7 L, RDW Std Deviation 54.4 H, RDW Coeff of Mary 18.9 H, Plt Count 241, MPV 9.4, Immature Gran % (Auto) 0.400, Neut % (Auto) 64.3, Lymph % (Auto) 19.0, [place] % (Auto) 11.9 H, Eos % (Auto) 4.0, Baso % (Auto) 0.4, Absolute Neuts (auto) 4.9, Absolute Lymphs (auto) 1.44, Nucleated RBC % 0, Sodium 136, Potassium 3.8, Chloride 92 L, Carbon Dioxide 34.9 H, Anion Gap 9, BUN 21 H, Creatinine 0.71, Estim Creat Clear Calc 153.76, Est GFR (MDRD) Non-Af 107, BUN/Creatinine Ratio 29.2 H, Glucose 152 H, Calcium 8.7, Vancomycin Trough 19.4 H 11/01/24 08:18: POC Glucose 200 H 11/01/24 11:54: POC Glucose 209 H Microbiology: Microbiology 10/29/24 20:25 Sputum, Expectorated/Coughed Gram Stain - Final 10/29/24 20:25 Sputum, Expectorated/Coughed Respiratory Culture - Final Mixed normal respiratory beverly. No Streptococcus pneumoniae, beta-hemolytic Streptococcus or Staphylococcus aureus isolated. 10/29/24 11:20 Urine, Clean Catch Urine Culture - Final Pseudomonas aeruginosa Enterococcus faecalis 10/29/24 11:09 Blood Culture (Wb) - Left Hand Blood Culture - Preliminary No growth in 48 hours. 10/29/24 10:33 Blood Culture (Wb) - Left Hand Blood Culture - Preliminary No growth in 48 hours. 10/29/24 11:20 Urine Catheter - Campbell Streptococcus pneumoniae Antigen (M - Final 10/29/24 11:20 Urine Catheter - Campbell Legionella Antigen - Final 10/29/24 15:23 Mucosa - Nasopharyngeal Respiratory Panel (PCR) - Final 10/29/24 11:04 Mucosa - Nose SARS-CoV-2, Influenza & RSV (PCR) - Final D/C Instructions DC O2, CPAP, BIPAP Needs Home O2 Discharge instructions: Yes Type of respiratory needs?: Oxygen Oxygen frequency: Continuous Continuous oxygen liters per minute: 5 and BiPAP BiPAP instructions: Continue previous settings DC home with Oxygen: Yes Home O2 MD Review: I have reviewed the oxygen testing, and the patient qualifies for home oxygen equipment and portability. The patient is mobile in the home and the community. Meaningful Use Info Meaningful Use Meaningful Use Diagnoses (Choose all that apply): None applicable Ischemic Stroke Statin Dosing Therapy Reference: STATIN DOSE THERAPY REFERENCE: * Patients > 75 years receive moderate or high dose statin therapy. * Patients 75 years or YOUNGER should receive HIGH intensity statin dose unless contraindicated. You will be required to document reason for non-treatment if statin daily dose does not meet guidelines. HIGH DOSE STATIN THERAPY DAILY Atorvastatin > than or = to 40 mg Rosuvastatin > than or = to 20 mg Amlodipine + Atorvastatin > than or = to 2.5/40 mg Ezetimibe + Simvastatin 10/80 mg Simvastatin 80mg Discharge Plan Admission Admit Date/Time: 10/29/24 14:30 Primary Reason for Your Visit: Worsening hypoxia, pneumonia Attending Provider: Le Wiggins Primary Care Provider: Rhona Bartlett Consulting Providers: Bryant Day; Josef Storey; Cristi Gann; Tez Tuttle; Torrey Campo; Elio Soto; Titus Fletcher; Alysha Cameron; Brien Martinez; Jean Mejía; Paresh Mendoza; Sully Rebolledo; Dimitris Chacko; Radha Still; Bunny Hughes; Juaquin York; Americo Bryan; Ahsan Verdin; Doni Gonzalez; Dee Ellsworth; Manuelito Porter; Georgi Sanz; Alex Martinez; Percy Price; Hugo Parra; Jewel Cm Instructions Patient Instructions: Using a BPAP Additional Instructions / Restrictions: DISCHARGE INSTRUCTIONS PLEASE READ *Please take this with you to your next doctors appointment* -You will be discharged on additional 4 days of Levaquin to cover pneumonia and possible urinary tract infection - It is important that you use your BiPAP nightly and if there are any other concerns of the BiPAP please follow-up with your physician who previously coordinated this -Per speech therapy recommendations he may benefit from following up with GI for an evaluation for reflux due to risk of reflux aspiration, it is recommended to follow-up with GI in an outpatient basis once acute illness has resolved -Please continue to follow with the wound care center on discharge -Please call your primary care provider's office upon discharge to schedule a hospital follow up within 1 week. -For any concerning signs or symptoms please call 911 or proceed to the nearest emergency department Discharge Orders/Prescriptions Prescriptions: New levofloxacin 750 mg Tablet 750 mg PO DAILY 4 Days Qty: 0 0RF guaifenesin [Mucinex] 600 mg Tablet Extended Release 12hr 600 mg PO BID 7 Days Qty: 0 0RF Continued fluticasone propionate [Flonase Allergy Relief] 50 mcg/actuation spray,suspension 1 spray INTRANASAL DAILY Patient Comments: takes in once in awhile Rx Instructions: administer into each nostril Wiliam 7-7-1.5 gram powder in packet 1 ea PO BID naloxone 0.4 mg/mL syringe 0.4 mg IM Q5M PRN (Reason: opioid reversal) Rx Instructions: NTExceed 10 mg total dose/episode ondansetron 4 mg tablet,disintegrating 4 mg PO Q4H PRN (Reason: nausea) metformin 500 mg tablet 1,000 mg PO BID duloxetine 30 mg capsule,delayed release(DR/EC) 60 mg PO QDAY Pro-Stat Sugar Free 15-100 gram-kcal/30 mL liquid 30 ml PO BID dextrose [Glucose Gel] 40 % gel 10 g PO Q15M PRN (Reason: hypoglycemia) Rx Instructions: until symptoms of low blood sugar are controlled chlorhexidine gluconate [Hibiclens] 4 % liquid 1 applic topical .twice a week Rx Instructions: tuesday and sodium chloride 0.65 % mist 2 spray intranasal Q2H PRN (Reason: dry nasal passages) ascorbic acid (vitamin C) 500 mg tablet 500 mg PO QODAY Trulicity 3 mg/0.5 mL pen injector 3 mg subcut QWEEK Rx Instructions: once a week on Mondays pantoprazole 40 mg tablet,delayed release (DR/EC) 40 mg PO DAILY alum-mag hydroxide-simeth [Mag-Al Plus Extra Strength] 400-400-40 mg/5 mL Suspension 30 ml PO Q6H PRN PRN (Reason: Gastric Burning) Qty: 0 0RF Artificial Tears(bb-ftdg-ssle) 1-0.2-0.2 % Drops 1 drp EACH EYE BID Qty: 0 0RF carvedilol 12.5 mg Tablet 12.5 mg PO BIDCM Qty: 0 0RF amlodipine 10 mg Tablet 10 mg PO DAILY Qty: 0 0RF diphenhydramine HCl [Banophen] 25 mg Capsule 25 mg PO TID PRN PRN (Reason: Itching) Qty: 0 0RF polysaccharide iron complex [Ferrex 150] 150 mg iron Capsule 150 mg PO .QOD sennosides-docusate sodium [Stool Softener-Stimulant Laxat] 8.6-50 mg Tablet 2 tab PO BID albuterol sulfate 2.5 mg /3 mL (0.083 %) solution for nebulization 2.5 mg inhalation BID Rx Instructions: And q4hr prn methocarbamol 500 mg tablet 1,000 mg PO BID PRN (Reason: cramps) Eliquis 5 mg tablet 5 mg PO BID polyethylene glycol 3350 [ClearLax] 17 gram/dose powder 17 g PO BID insulin glargine [Lantus U-100 Insulin] 100 unit/mL solution 14 unit subcut DAILY insulin lispro 100 unit/mL solution 12 unit subcut .ac loratadine [Allerclear] 10 mg tablet 10 mg PO DAILY Rx Instructions: am insulin lispro [Humalog KwikPen Insulin] 100 unit/mL Insulin Pen See Protocol subcut ACHS Protocol: 6. Sliding Scale Insulin Custom Condition: mg/dl range Dose/Route: Number of Units Condition: 251-350 Dose/Route: 2 Condition: >350 Dose/Route: 4 Protocol Text: Custom Sliding Scale Rx Instructions: 12 units before meals nystatin 100,000 unit/gram powder 1 applic topical TID fenofibrate 54 mg tablet 54 mg PO QHS simethicone [Gas Relief (simethicone)] 80 mg tablet,chewable 80 mg PO .ACTID PRN (Reason: gas) acetic acid 0.25 % solution 30 ml irrigation BID Patient Comments: [NO ORIGINAL SIG] Dakin's Solution 0.25 % solution 1 applic topical BID artificial tear([id number]) [GenTeal Tears Moderate] 0.1-0.3-0.2 % drops 1 drp EACH EYE BID PRN (Reason: dry eyes) acetaminophen 325 mg capsule 650 mg PO Q6H glipizide 2.5 mg tablet extended release 24hr 2.5 mg PO DAILY furosemide 20 mg tablet 40 mg PO BID Qty: 30 0RF morphine [[place]] 30 mg capsule,extend.release pellets 30 mg PO Q12H 30 Days Qty: 60 0RF Changed oxycodone 10 mg tablet 5 mg PO Q6H PRN (Reason: pain) 3 Days Qty: 6 0RF Discontinued lorazepam 1 mg tablet 1 mg PO DAILY PRN (Reason: anxiety) Qty: 7 0RF Referrals / Follow Up: Rhona Bartlett MD [Primary Care Provider] - Within 1 Week Bridger Benson DO [Med Staff - Active Staff] - (-Per speech therapy recommendations he may benefit from following up with GI for an evaluation for reflux due to risk of reflux aspiration, it is recommended to follow-up with GI in an outpatient basis once acute illness has resolved) Disposition Disposition (needs filled in before D/C Order can be placed): Senior Living Facility Charges/Coding Visit Charges Inpatient E&M: 56779 Disch Hosp >30min
--- NOTE | 2024-11-01 15:10 | CASEMGMT ---
Discharge Planning Discharge orders, signed med list, and transport time sent to [facility]. Physicians will transport pt by cot at 5:30p. Nursing, SW, pt, and his sister (Aletha) updated. Dipika Bullard DC Planning Asst.
--- NOTE | 2024-11-01 15:35 | CHAPLAIN ---
Type of Pastoral Visit _x__ Initial Visit ___ Follow-up Visit ___ On-call Visit ___ General Patient Visit ___ Spiritual Assessment ___ Family Conference ___ Bereavement ___ Rapid Response ___ Code Blue ___ Other (describe below) Pastoral Care Referral From _x__ Patient ___ Family ___ Nurse ___ Physician ___ Animal Anatomy Teacher ___ Manager Payer ___ Other (describe below) Sacrament/Intervention _x__ Active listening ___ Anointing ___ Islam ___ Bereavement ___ Communion ___ Migdalia exploration ___ ___ Life review ___ Prayer ___ Reconciliation ___ Sacrament of Sick ___ Supportive presence ___ Wedding ___ Other (describe below) Pastoral Comments patient was also seen recently in a previous admission; pt gives updates on self and his mother who had hospital stays recently; pt speaks of how he handles the situation that is ongoing; pt welcomes prayer
--- NOTE | 2024-11-01 16:36 | NURSING ---
Report called to Nurse at [facility]
--- NOTE | 2024-11-01 18:16 | CASEMGMT ---
Social Work Received notice from provider of intent to discharge today. Discharge Electroencephalographic Technologist arranging transportation, and communication with SNF, [facility] nursing staff, and patient/family regarding discharge time. Plan: half-way care at [facility], intermediate level of care. -RAMONE Fermin
[2024-11-01] MEDS: Fenofibrate 48 MG Tablet PO (21:56)
[2024-11-01] MEDS: Insulin Glargine-YFGN 100 UNIT/ML Pen 15 UNIT SC (21:58)
[2024-11-01 23:35] LABS: Bedside Glucose 189 mg/dL (74-106)
[2024-11-01 23:44] LABS: Bedside Glucose 192 mg/dL (74-106)
[2024-11-02 00:33] VITALS: BP 148/77; PULSE 97; RESP 19; TEMP 36.8; O2SAT 93
--- NOTE | 2024-11-02 00:37 | NURSING ---
This RN called Artemio Zazueta to give update on the patients discharge. I let Katiuska at [facility] know that the pt was on his way.
== END 2024-11-01 23:57 | disposition skilled nursing facility (03) | DRG 139 ==
LOC: ED 14:42 → PCU 14:46
PROVIDERS: Internal Medicine; Admitting Provider Hospitalist; Emergency Provider Emergency Medicine; PCP Internal Medicine; Referring Provider Hospitalist; Visit Provider Internal Medicine
DX: J18.9 Pneumonia, unspecified organism (principal); J96.22 Acute and chronic respiratory failure with hypercapnia; J96.21 Acute and chronic respiratory failure with hypoxia; L89.314 Pressure ulcer of right buttock, stage 4; L89.154 Pressure ulcer of sacral region, stage 4; I24.89 Other forms of acute ischemic heart disease; I11.0 Hypertensive heart disease with heart failure; G82.20 Paraplegia, unspecified; E11.9 Type 2 diabetes mellitus without complications; E66.813 Obesity, class 3; Z93.3 Colostomy status; I50.32 Chronic diastolic (congestive) heart failure; E78.5 Hyperlipidemia, unspecified; Z68.42 Body mass index [BMI] 45.0-49.9, adult; Z79.4 Long term (current) use of insulin; E66.2 Morbid (severe) obesity with alveolar hypoventilation; K21.9 Gastro-esophageal reflux disease without esophagitis; M62.838 Other muscle spasm; R11.0 Nausea; L89.622 Pressure ulcer of left heel, stage 2; L89.892 Pressure ulcer of other site, stage 2; Z79.01 Long term (current) use of anticoagulants; Z87.891 Personal history of nicotine dependence; Z79.85 Long-term (current) use of injectable non-insulin antidiabetic drugs; Z79.84 Long term (current) use of oral hypoglycemic drugs; B95.2 Enterococcus as the cause of diseases classified elsewhere; B96.5 Pseudomonas (aeruginosa) (mallei) (pseudomallei) as the cause of diseases classified elsewhere; Z99.81 Dependence on supplemental oxygen; Z79.899 Other long term (current) drug therapy; Z96.649 Presence of unspecified artificial hip joint; R53.81 Other malaise; G89.4 Chronic pain syndrome; N39.0 Urinary tract infection, site not specified
CPT/HCPCS: 11042; 11043; 11046; 36415; 36600; 71046; 71250; 74230; 80048; 80053; 80202; 81001; 82803; 82962; 83605; 83880; 84484; 85025; 85027; 85610; 85730; 87040; 87070; 87077; 87086; 87088; 87184; 87186; 87205; 87449; 87631; 87633; 87641; 92526; 92610; 92611; 93005; 94002; 94003; 94640; 94660; 94668; 94762; 97597; 97598; 99285; A4216; J2405

== ENCOUNTER → 2024-10-29 | Outpatient (REF) | payer MEDICAID, SELFPAY ==
[2024-10-29 08:59] LABS: Absolute Neutrophil Count 5.6 X10^3/uL (2.0-7.7); Basophil# 0.05 X10^3/uL; Basophil% 0.6 % (0-1); Eosinophil# 0.29 X10^3/uL; Eosinophils% 3.3 % (0-5); Hematocrit 33.6 % (40-54); Lymphocyte % 22.9 % (19-41); Mean Corp Hgb Conc 26.8 g/dL (32-36); Mean Corpuscular Hgb 22.4 pg (27.0-32.0); Mean Corpuscular Volume 83.6 fL (80-94); Mean Platelet Vol. 10.7 fl (6.2-12.0); Monocyte# 0.76 X10^3/uL; Monocyte% 8.7 % (0-10); NRBC Flagged by Analyzer 0 % (0-5); Neutrophil # 5.61 X10^3/uL (2.7-7.7); Neutrophil % 64.2 % (47-70); Platelet Count 253 K/mm3 (150-450); RBC Distribution Width CV 18.4 % (11.6-14.6); RBC Distribution Width SD 54.3 fl (35.1-43.9); Red Blood Count 4.02 M/mm3 (4.6-6.2); White Blood Count 8.7 K/mm3 (4.4-11.0)
[2024-10-29 09:00] LABS: Anion Gap 10 (5-15); BUN 24 mg/dL (4-19); BUN/Creat Ratio 27.8 RATIO (10-20); Calcium,Total 8.8 mg/dL (7.6-11.0); Carbon Dioxide 31.9 mmol/L (21.0-32.0); Chloride 96 mmol/L (98-108); Creatinine, Serum 0.86 mg/dL (0.70-1.20); EST Glomerular Filtration Rate 101 (>60); Glucose 158 mg/dL (70-99); Iron 39 ug/dL (65-175); Iron Binding Capacity,Total 266 ug/dL (250-450); Iron Binding Capacity,Unsat 227 ug/dL (228-428); Potassium 4.7 mmol/L (3.3-5.1); Sodium Level 138 mmol/L (133-145)
== END | disposition home or self-care (01) ==
LOC: OLS.WHLEAS 05:00
PROVIDERS: PCP Internal Medicine; Visit Provider Internal Medicine
DX: D50.9 Iron deficiency anemia, unspecified (principal)
CPT/HCPCS: 36415; 80048; 83540; 83550; 85025

== ENCOUNTER → 2024-11-05 | Outpatient (REF) | payer MEDICAID, SELFPAY ==
[2024-11-05 08:59] LABS: Absolute Neutrophil Count 4.4 X10^3/uL (2.0-7.7); Basophil# 0.04 X10^3/uL; Basophil% 0.5 % (0-1); Eosinophil# 0.46 X10^3/uL; Eosinophils% 5.9 % (0-5); Hematocrit 31.6 % (40-54); Hemoglobin 8.7 g/dL (13.0-16.5); Lymphocyte % 29.3 % (19-41); Mean Corp Hgb Conc 27.5 g/dL (32-36); Mean Corpuscular Hgb 22.3 pg (27.0-32.0); Mean Platelet Vol. 9.6 fl (6.2-12.0); Monocyte# 0.61 X10^3/uL; Monocyte% 7.8 % (0-10); NRBC Flagged by Analyzer 0 % (0-5); Neutrophil # 4.41 X10^3/uL (2.7-7.7); Platelet Count 324 K/mm3 (150-450); RBC Distribution Width CV 18.4 % (11.6-14.6); RBC Distribution Width SD 54.4 fl (35.1-43.9); White Blood Count 7.9 K/mm3 (4.4-11.0)
[2024-11-05 10:27] LABS: Anion Gap 11 (5-15); BUN 25 mg/dL (4-19); BUN/Creat Ratio 26.5 RATIO (10-20); Calcium,Total 8.6 mg/dL (7.6-11.0); Carbon Dioxide 33.6 mmol/L (21.0-32.0); Chloride 95 mmol/L (98-108); Creatinine, Serum 0.95 mg/dL (0.70-1.20); EST Glomerular Filtration Rate 94 (>60); Glucose 158 mg/dL (70-99); Potassium 4.1 mmol/L (3.3-5.1); Sodium Level 139 mmol/L (133-145)
== END | disposition home or self-care (01) ==
LOC: OLS.WHLEAS 05:00
PROVIDERS: PCP Internal Medicine; Visit Provider Internal Medicine
DX: E11.9 Type 2 diabetes mellitus without complications (principal); J15.9 Unspecified bacterial pneumonia; G82.20 Paraplegia, unspecified; J91.8 Pleural effusion in other conditions classified elsewhere; D62 Acute posthemorrhagic anemia; L89.310 Pressure ulcer of right buttock, unstageable
CPT/HCPCS: 36415; 80048; 85025

== ENCOUNTER → 2024-11-07 14:15 | Outpatient (REF) | payer MEDICAID, SELFPAY | LOC: OLS.WHLEAS 14:15 | PROVIDERS: PCP Internal Medicine; Visit Provider Nurse Practitioner Adult Health | DX: L89.154 Pressure ulcer of sacral region, stage 4 (principal) | CPT/HCPCS: 87070; 87077; 87186; 87205 ==

== ENCOUNTER 2024-11-09 09:00 | Outpatient (RCR) | payer MEDICAID, SELFPAY ==
[2024-10-14 00:14] VITALS: BP 136/70; PULSE 105; RESP 18; TEMP 36.3; O2SAT 96; BMI 43.3
[2024-10-19 09:35] VITALS: BP 138/69; PULSE 87; RESP 18; TEMP 36.1; BMI 43.3
--- NOTE | 2024-10-19 14:37 | PCM.WC.PN ---
History of Present Illness Date of Service: 10/19/24 Chief Complaint: sacral decubitus ulcer History of Wound: Jani is a pleasant 59 yo gentleman that has undergone an unfortunate series of events over the last several years which has left him paraplegic and with a sacral decubitus ulcer and residing in [facility]. He has been referred to the wound center for evaluation and treatment of his sacral ulcer. He has had a long history of degenerative disc disease of his spine and underwent spine surgery in August 2016 initially and then again in February 2017 due to osteomyelitis and infection of hardware. He underwent further surgery for fusion in December of 2020. He fell in November of 2022 getting up from his chair and then experienced worsening pain, weakness in his legs and ultimately became paraplegic from the waist down. He underwent surgery in [place] in January 2023 at [facility] [place] and then had several complications including pneumonia, pulmonary embolisms and a sacral ulcer that developed into a large defect after multiple surgical debridements and osteomyelitis of his sacrum while at [facility] through the first part 2023 and then attempted to come home to be cared for by his elderly mother which was not successful and he was hospitalized and discharged to [facility] where he has been residing and continues to reside. He has undergone many different treatments for his sacral ulcer including wound vac, silver dressings and Dakins and does have an air mattress but it is not an alternating pressure air mattress. The staff does try to offload his ulcer with wedges and pillows but it is difficult due to his chronic back pain. He is currently having the wound dressed with Dakins wet to dry and super absorber dressings twice daily. he reports being on chronic antibiotic treatment and IV treatment over the past year and states that he had MRI that showed resolution of osteomyelitis. (Records unavailable). He currently does not have any symptoms of systemic infection or localized infection. Denies fever, chills, nausea. Subjective Subjective Jani returns today for evaluation and treatment of a sacral decubitus ulcer. He has been tolerating dressing changes with Dakins and super absorber dressings. He was hospitalized for respiratory failure and pneumonia last week and developed 2 large blisters to his feet during hospitalization. He is currently on Azithromycin for his pulmonary infection. Denies fever, chills, erythema. Objective Data Objective Data Vital Signs: Vital Signs Temp Pulse Resp BP Pulse Ox O2 Flow Rate FiO2 97 F L 87 18 138/69 H 96 2 83 10/19/24 09:35 10/19/24 09:35 10/19/24 09:35 10/19/24 09:35 10/14/24 00:14 10/19/24 09:35 10/19/24 09:35 Oxygen Flow Rate (L/min) 2 Weight: 141.067 kg Body Mass Index (BMI) 43.3 Physical Exam Const alert, oriented x3, no apparent distress and well nourished Constitutional Narrative: Morbidly obese, middle-aged, white male, sitting up in bed, appears comfortable and nontoxic General Appearance: cooperative and comfortable Nutritional Appearance: morbidly obese HEENT head/scalp atraumatic and moist oral mucous membranes Resp normal respiratory effort, no retractions, no use of accessory muscles and clear to auscultation bilaterally Resp Narrative: Distant due to body habitus Cardio regular rate, regular rhythm, S1 normal heart sound, S2 normal heart sound, no murmurs, no rub, no gallops and no clicks GI normal to inspection, nondistended, normoactive bowel sounds, soft to palpation and non-tender GI Narrative: colostomy present Extremity Extremity Narrative: Chronic bilateral lower extremity edema due to history of paraplegia and lack of movement, no cyanosis or clubbing General Extremity: edema bilateral lower extremity Details: moderate Skin Wounds: wounds noted Wound Narrative: as noted in clinical panel - large sacral ulcer and right ischial ulcer, no visible bone, shearing injury of left ischial area, area is irregular with fringe like skin in areas from repetitive shearing and pressure Right lateral foot with large serous blister and left heel with large serous blister - drained/decompressed using 18 G needle Neuro oriented x3, CN's II-XII intact bilaterally, No moves all extremities, No no focal motor deficits and No no sensory deficits noted Neuro Narrative: Bilateral lower extremity flaccidity due to history of L1 injury Speech: speech normal Psych affect normal Psych Narrative: Very pleasant, interacts appropriately Debridement Note Debridement Note Wound debrided: left ischium Laterality: Left Wound Grade/Stage: Stage 2 Anesthesia Used: 4% Lidocaine Solution Depth: Down to and including healthy tissue and in the subcutaneous layer Percentage of wound debrided: 100 Instrument Used: 5mm curette Tissue Removed: Yellow slough, devitalized tissue Severity: Fat Layer Exposed Amount of bleeding with debridement: None Bleeding Controlled with: Compression and gauze Patient tolerated procedure: Patient tolerated procedure well Post-Debridement Measurements and Additional Note: Post-Debridement Measurements/Treatment - Nurse 1 - General Ulcer Assessment Start: 10/19/24 09:04 Freq: Status: Active Protocol: ELENA Activity Type Activity Date Activity User E-sign Co-sign Detail Recorded Client Recorded Date Recorded By Document 10/19/24 09:35 [id number] [id number] 10/19/24 09:41 RB 10/19/24 09:35 WC - Today's Visit Information Type of service Follow-up Visit (Physician/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 WORKER ) Arrival Mode Stretcher Transfer Assistance Kelli Lift Patient Identification Verified (Name & Yes ) Patient Requires Transmission-Based No Precautions Height and Weight Body Mass Index (BMI) 43.3 BMI Classification Obese Vital Signs Temperature (97.8 F-99.1 F) 97 F L Temperature Source Temporal Pulse Rate (60-100) 87 Pulse Location Monitor Respiratory Rate (12-18) 18 Respiratory rate source Observation O2 L/MIN (L/min) 2 FIO2 % 83 Blood Pressure (90/60-120/80) 138/69 H Blood Pressure Mean (mm Hg) 92 Source Monitor Position Semi-Fowlers Blood Pressure Location Left Arm History Since Last Visit- (Skip if this is Patient's initial visit) Have you changed medications since your No last visit? Any new allergies or adverse reactions No Had a fall/change in ADL's that may No increase risk of falls Signs or symptoms of abuse and/or No neglect since last visit Have you been in the hospital since your No last visit? Has dressing in place as prescribed Yes Has compression in place as prescribed N/A Has offloadiing in place as prescribed N/A Experienced any changes in pain level or No management Pain Scale: 0-10 Numeric Is Patient Pain Free? Yes - Nurse 1 - General Ulcer Measurement Start: 10/19/24 09:04 Freq: Status: Active Protocol: Activity Type Activity Date Activity User E-sign Co-sign Detail Recorded Client Recorded Date Recorded By Document 10/19/24 09:35 RB [id number] 10/19/24 09:41 RB 10/19/24 09:35 Wound Center Nurse 1 3. R ischium -Combined with other wound No -Current Size (cm) - Length 0.1 -Current Size (cm) - Width 0.1 -Current Size (cm) - Depth 0.1 -Total Square Cm 0.01 -Tunneling No -Undermining/Tunneling No -Circular Undermining No -Exudate Amt Large -Exudate Type Serosanguineous -Wound Margin Thickened -Granulation Amt Large (67-100%) -Granulation Quality Literberry -Slough/Fibrin Yes -Necrosis Amt Small (1-33%) -Necrotic Tissue Type Adherent Slough -Structure Exposed N/A -Texture (Trish-wound Skin Appearance) Friable -Moisture (Trish-wound Skin Appearance) Assessed -Color (Trish-wound Skin Appearance) Assessed -Temperature (Trish-wound Skin No Abnormality Appearance) (Pt Warm) -Tenderness on Palpation (Trish-wound No Skin Appearance) -Ulcer Cleansing Wound Cleanser -Foul Odor after Cleansing No -Anesthetic Used 4% Lidocaine Solution 2. L ischium -Combined with other wound No -Current Size (cm) - Length 0.1 -Current Size (cm) - Width 0.1 -Current Size (cm) - Depth 0.1 -Total Square Cm 0.01 -Tunneling No -Undermining/Tunneling No -Circular Undermining No -Granulation Quality Literberry -Slough/Fibrin Yes -Necrosis Amt Medium (34-66%) -Necrotic Tissue Type Adherent Slough -Structure Exposed N/A -Texture (Trish-wound Skin Appearance) Assessed, Fluctuance, Scarring -Moisture (Trish-wound Skin Appearance) Weeping -Color (Trish-wound Skin Appearance) Assessed -Temperature (Trish-wound Skin No Abnormality Appearance) (Pt Warm) -Tenderness on Palpation (Trish-wound No Skin Appearance) -Ulcer Cleansing Wound Cleanser -Foul Odor after Cleansing No -Anesthetic Used 4% Lidocaine Solution -Wound Comment(s) Dr Price had increase nc O2 to 4l and pulse ox is 93% *1. coccyx -Current Size (cm) - Length 0.1 -Current Size (cm) - Width 0.1 -Current Size (cm) - Depth 0.1 -Total Square Cm 0.01 -Tunneling No -Undermining/Tunneling No -Circular Undermining No -Exudate Amt Large -Exudate Type Serosanguineous -Wound Margin Thickened -Granulation Amt Medium (34-66%) -Granulation Quality Literberry -Slough/Fibrin Yes -Necrosis Amt Medium (34-66%) -Necrotic Tissue Type Adherent Slough -Structure Exposed N/A -Texture (Trish-wound Skin Appearance) Assessed, Friable -Moisture (Trish-wound Skin Appearance) Assessed -Color (Trish-wound Skin Appearance) Assessed, Erythema -Temperature (Trish-wound Skin No Abnormality Appearance) (Pt Warm) -Tenderness on Palpation (Trish-wound No Skin Appearance) -Ulcer Cleansing Wound Cleanser -Foul Odor after Cleansing No -Anesthetic Used 4% Lidocaine Solution -Wound Comment(s) L medial heel and R lateral foot have large blister and both have skin intact WC - Nurse 2 - General Ulcer CM Notes Start: 10/19/24 09:04 Freq: Status: Active Protocol: Activity Type Activity Date Activity User E-sign Co-sign Detail Recorded Client Recorded Date Recorded By Document 10/19/24 09:46 [id number] 10/19/24 10:11 10/19/24 09:46 Wound Center Nurse 2 3. R ischium -Time 09:51 -Correct Patient Yes -Correct Side, Site, Position Yes -Correct Procedure Yes -Procedure Performed Yes -Type of Procedure Debridement -Clinical Debridement Muscle / Fascia -Tissue Removed Muscle -Post Debridement (cm) - Length 11.0 -Post Debridement (cm) - Width 5.5 -Post Debridement (cm) - Depth 0.1 -Total Square (Post) (cm) 60.50 -Area of Debridement (cm) - Length 11.0 -Area of Debridement (cm) - Width 5.5 -Total Square (Area) (cm) 60.50 -Tunneling No -Undermining/Tunneling No -Circular Undermining No -Wound/Ulcer Outcome Not Healed -Ulcer Cleansing Rinsed/ Irrigated with Saline -Foul Odor after Cleansing No -Bioengineered Tissue No -Bleeding Controlled with Pressure -Treatment Response Procedure Tolerated Well -Offloading No -Debridement - Muscle / Fascia, 1st No 20sq cm 2. L ischium -Time 09:51 -Correct Patient Yes -Correct Side, Site, Position Yes -Correct Procedure No -Procedure Performed No -Wound/Ulcer Outcome Not Healed -Foul Odor after Cleansing No -Bioengineered Tissue No -Bleeding Controlled with Pressure -Offloading No -Debridement - Subq, 1st 20sq cm No *1. coccyx -Time 09:52 -Correct Patient Yes -Correct Side, Site, Position Yes -Correct Procedure Yes -Procedure Performed Yes -Type of Procedure Debridement -Clinical Debridement Muscle / Fascia -Tissue Removed Muscle -Post Debridement (cm) - Length 11.5 -Post Debridement (cm) - Width 15.0 -Post Debridement (cm) - Depth 0.1 -Total Square (Post) (cm) 172.50 -Area of Debridement (cm) - Length 11.5 -Area of Debridement (cm) - Width 15.0 -Total Square (Area) (cm) 172.50 -Tunneling No -Undermining/Tunneling No -Circular Undermining No -Wound/Ulcer Outcome Not Healed -Ulcer Cleansing Rinsed/ Irrigated with Saline -Bioengineered Tissue No -Bleeding Controlled with Pressure -Treatment Response Procedure Tolerated Well -Debridement - Muscle / Fascia, 1st Yes 20sq cm -Debridement, Muscle/Fascia, ea addt'l 11 20sq cm or part thereof Pain Scale: 0-10 Numeric Is Patient Pain Free? Yes WC - Nurse 3 - General Ulcer D/C NN Start: 10/19/24 09:04 Freq: Status: Active Protocol: Activity Type Activity Date Activity User E-sign Co-sign Detail Recorded Client Recorded Date Recorded By Document 10/19/24 10:39 RB [id number] 10/19/24 10:44 RB 10/19/24 10:39 Wound Care Center Nurse 3 3. R ischium -Ulcer Cleansing Rinsed/ Irrigated with Saline -Other Dressing dakins moistened gauze / ABD -Primary Dressing Covered/Secured with Secured with Tape 2. L ischium -Ulcer Cleansing Rinsed/ Irrigated with Saline -Primary Dressing Applied Optilok 5x5 1/2 -Other Dressing dakins moistened gauze / abd -Primary Dressing Covered/Secured with Secured with Tape -Optilok 5x5 1/2 1 *1. coccyx -Other Dressing dakins moistened gauze / abd -Primary Dressing Covered/Secured with Secured with Tape -Wound Comment(s) adaptic to L heel ABD, adaptic to R lateral foot ABD Treatment Response Procedure Tolerated Well Pain Scale: 0-10 Numeric Is Patient Pain Free? No WC - Visit Discharge Discharge Condition Stable Ambulatory Status Wheelchair Transportation NH Medication Reconcilliation completed & No provided to patient/care provider Clinical Summary of Care Provided Yes Additional Wound Wound debrided: right ischium Laterality: Right Wound Grade/Stage: Stage III Type of Debridement: Excisional debridement Anesthesia Used: 4% Lidocaine Solution Depth: Down to and including healthy tissue and in the subcutaneous layer Percentage of wound debrided: 100 Instrument Used: 5mm curette Tissue Removed: Yellow slough, devitalized tissue Severity: Fat Layer Exposed Amount of bleeding with debridement: Mild Bleeding Controlled with: Compression and gauze Patient tolerated procedure: Patient tolerated procedure well Additional Wound Wound debrided: coccyx Laterality: Not Applicable Wound Grade/Stage: Stage IV Type of Debridement: Excisional debridement Anesthesia Used: 4% Lidocaine Solution Depth: Down to and including healthy tissue, in the subcutaneous layer and to muscle Percentage of wound debrided: 100 Instrument Used: 5mm curette Tissue Removed: Yellow slough, devitalized tissue Severity: Necrosis of Muscle Amount of bleeding with debridement: Mild Bleeding Controlled with: Compression and gauze Patient tolerated procedure: Patient tolerated procedure well Assessment/Plan Assessment/Plan (1) Chronic pain: CODE(S): G89.29 - Other chronic pain QUALIFIERS: Chronic pain type: chronic pain syndrome Qualified Code(s): G89.4 - Chronic pain syndrome (2) Hypoxia: CODE(S): R09.02 - Hypoxemia (3) History of paraplegia: CODE(S): Z86.69 - Personal history of other diseases of the nervous system and sense organs (4) Chronic indwelling Campbell catheter: CODE(S): Z97.8 - Presence of other specified devices (5) Type 2 diabetes mellitus: CODE(S): E11.9 - Type 2 diabetes mellitus without complications QUALIFIERS: Diabetes mellitus group home insulin use: without group home use Diabetes mellitus complication status: with neurologic complications Diabetes mellitus complication detail: with polyneuropathy Qualified Code(s): E11.42 - Type 2 diabetes mellitus with diabetic polyneuropathy (6) Chronic anticoagulation: 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 (7) History of deep vein thrombosis: CODE(S): Z86.718 - Personal history of other venous thrombosis and embolism (8) Decubitus ulcer of sacral region, stage 4: CODE(S): L89.154 - Pressure ulcer of sacral region, stage 4 (9) Decubitus ulcer of left perineal ischial region, stage 2: CODE(S): L89.322 - Pressure ulcer of left buttock, stage 2 (10) Hx of spinal surgery: CODE(S): Z98.890 - Other specified postprocedural states (11) Colostomy status: CODE(S): Z93.3 - Colostomy status (12) HTN (hypertension): CODE(S): I10 - Essential (primary) hypertension QUALIFIERS: Hypertension type: primary hypertension Qualified Code(s): I10 - Essential (primary) hypertension (13) BATOOL treated with BiPAP: CODE(S): G47.33 - Obstructive sleep apnea (adult) (pediatric) (14) Lymphedema: CODE(S): I89.0 - Lymphedema, not elsewhere classified (15) Decubitus ulcer of right ischium, stage 3: CODE(S): L89.313 - Pressure ulcer of right buttock, stage 3 PLAN: Plan Debridement performed today in clinic as annotated above. At home wound-care instructions: The patient's ulcers will be washed with antibacterial soap and water and then will use Dakins wet to dry to wound bed and cover with gauze and superabsorber for heavy drainage twice daily. Keep dressing clean and dry. Left heel and right lateral foot will be covered with adaptic and ABD and changed daily. Off-loading: The patient was instructed to avoid pressure and friction on the affected areas. Reposition every 2 hours at minimum. Avoid prolonged standing and/or dangling of legs. When seated, feet should be elevated at chest level. Continue air mattress. Order has been written for alternating pressure air mattress to assist in offloading pressure to his ulcers. He now has alternating pressure air mattress to assist in offloading. Diet: Patient encouraged to increase protein intake while taking caution to avoid high carbohydrate and/or sugar intake. He is getting Wiliam protein supplement at [facility]. Labs/cultures/imaging: Will obtain previous imaging results. Most recent A1C 7.9% on 07/23/24. Wound culture showed multiple bacteria and he has completed on Flagyl and Cefdinir. Follow-up: Return in 1 week for wound care follow up. Return sooner or report to the emergency room should symptoms worsen, or new symptoms arise. Note: [employer] speech recognition toe stripper software was used to create portions of this document. Sound-alike and misspelled words, as well as other toe stripper errors may be contained in the documentation.
[2024-10-26 09:12] VITALS: BP 123/75; PULSE 104; RESP 20; TEMP 36.4; BMI 43.3
--- NOTE | 2024-10-26 13:52 | PCM.WC.PN ---
History of Present Illness Date of Service: 10/26/24 Chief Complaint: sacral decubitus ulcer History of Wound: Jani is a pleasant 59 yo gentleman that has undergone an unfortunate series of events over the last several years which has left him paraplegic and with a sacral decubitus ulcer and residing in [facility]. He has been referred to the wound center for evaluation and treatment of his sacral ulcer. He has had a long history of degenerative disc disease of his spine and underwent spine surgery in August 2016 initially and then again in February 2017 due to osteomyelitis and infection of hardware. He underwent further surgery for fusion in December of 2020. He fell in November of 2022 getting up from his chair and then experienced worsening pain, weakness in his legs and ultimately became paraplegic from the waist down. He underwent surgery in [place] in January 2023 at [facility] and then had several complications including pneumonia, pulmonary embolisms and a sacral ulcer that developed into a large defect after multiple surgical debridements and osteomyelitis of his sacrum while at [facility] through the first part 2023 and then attempted to come home to be cared for by his elderly mother which was not successful and he was hospitalized and discharged to [facility] where he has been residing and continues to reside. He has undergone many different treatments for his sacral ulcer including wound vac, silver dressings and Dakins and does have an air mattress but it is not an alternating pressure air mattress. The staff does try to offload his ulcer with wedges and pillows but it is difficult due to his chronic back pain. He is currently having the wound dressed with Dakins wet to dry and super absorber dressings twice daily. he reports being on chronic antibiotic treatment and IV treatment over the past year and states that he had MRI that showed resolution of osteomyelitis. (Records unavailable). He currently does not have any symptoms of systemic infection or localized infection. Denies fever, chills, nausea. Subjective Subjective Jani returns today for evaluation and treatment of a sacral decubitus ulcer. He has been tolerating dressing changes with Dakins and super absorber dressings. He was hospitalized for respiratory failure and pneumonia last week and developed 2 large blisters to his feet during hospitalization. He is currently on Azithromycin for his pulmonary infection. Denies fever, chills, erythema. Objective Data Objective Data Vital Signs: Vital Signs Temp Pulse Resp BP Pulse Ox O2 Del Method O2 Flow Rate 97.5 F L 104 H 20 H 123/75 H 96 Nasal Cannula 6 10/26/24 09:12 10/26/24 09:12 10/26/24 09:12 10/26/24 09:12 10/14/24 00:14 10/26/24 09:12 10/26/24 09:12 FiO2 89 10/26/24 09:12 Oxygen Flow Rate (L/min) 6 Oxygen Delivery Method Nasal Cannula Weight: 141.067 kg Body Mass Index (BMI) 43.3 Physical Exam Const alert, oriented x3, no apparent distress and well nourished Constitutional Narrative: Morbidly obese, middle-aged, white male, sitting up in bed, appears comfortable and nontoxic General Appearance: cooperative and comfortable Nutritional Appearance: morbidly obese HEENT head/scalp atraumatic and moist oral mucous membranes Resp normal respiratory effort, no retractions, no use of accessory muscles and clear to auscultation bilaterally Resp Narrative: Distant due to body habitus Cardio regular rate, regular rhythm, S1 normal heart sound, S2 normal heart sound, no murmurs, no rub, no gallops and no clicks GI normal to inspection, nondistended, normoactive bowel sounds, soft to palpation and non-tender GI Narrative: colostomy present Extremity Extremity Narrative: Chronic bilateral lower extremity edema due to history of paraplegia and lack of movement, no cyanosis or clubbing General Extremity: edema bilateral lower extremity Details: moderate Skin Wounds: wounds noted Wound Narrative: as noted in clinical panel - large sacral ulcer and right ischial ulcer, no visible bone, shearing injury of left ischial area, area is irregular with fringe like skin in areas from repetitive shearing and pressure Right lateral foot with large serous blister and left heel with large serous blister - drained/decompressed using 18 G needle Neuro oriented x3, CN's II-XII intact bilaterally, No moves all extremities, No no focal motor deficits and No no sensory deficits noted Neuro Narrative: Bilateral lower extremity flaccidity due to history of L1 injury Speech: speech normal Psych affect normal Psych Narrative: Very pleasant, interacts appropriately Debridement Note Debridement Note Wound debrided: left ischium Laterality: Left Tissue Removed: Yellow slough, devitalized tissue No debridement was completed: No debridement was completed today Post-Debridement Measurements and Additional Note: Post-Debridement Measurements/Treatment WC - Nurse 1 - General Ulcer Assessment Start: 10/19/24 09:04 Freq: Status: Active Protocol: ELENA Activity Type Activity Date Activity User E-sign Co-sign Detail Recorded Client Recorded Date Recorded By Document 10/19/24 09:35 RB [id number] 10/19/24 09:41 RB Document 10/26/24 09:12 RB [id number] 10/26/24 09:25 RB Edit Result 10/26/24 09:12 RB (1) [id number] 10/26/24 09:30 RB (1) Respiratory Rate (12-18) 18 => 20 H Oxygen Delivery Method => Nasal Cannula O2 L/MIN (L/min) => 6 FIO2 % => 89 10/19/24 10/26/24 09:35 09:12 - Today's Visit Information Type of service Follow-up Visit Follow-up Visit (Physician/DISC SANDER (Physician/DISC SANDER ) ) Arrival Mode Stretcher Wheelchair Transfer Assistance Kelli Lift Kelli Lift Patient Identification Verified (Name & Yes Yes ) Patient Requires Transmission-Based No No Precautions Height and Weight Body Mass Index (BMI) 43.3 43.3 BMI Classification Obese Obese Vital Signs Temperature (97.8 F-99.1 F) 97 F L 97.5 F L Temperature Source Temporal Temporal Pulse Rate (60-100) 87 104 H Pulse Location Monitor Monitor Respiratory Rate (12-18) 18 20 H Respiratory rate source Observation Observation Oxygen Delivery Method Nasal Cannula O2 L/MIN (L/min) 2 6 FIO2 % 83 89 Blood Pressure (90/60-120/80) 138/69 H 123/75 H Blood Pressure Mean (mm Hg) 92 91 Source Monitor Monitor Position Semi-Fowlers Semi-Fowlers Blood Pressure Location Left Arm Left Arm History Since Last Visit- (Skip if this is Patient's initial visit) Have you changed medications since your No No last visit? Any new allergies or adverse reactions No No Had a fall/change in ADL's that may No No increase risk of falls Signs or symptoms of abuse and/or No No neglect since last visit Have you been in the hospital since your No No last visit? Has dressing in place as prescribed Yes Yes Has compression in place as prescribed N/A N/A Has offloadiing in place as prescribed N/A Yes Experienced any changes in pain level or No No management Pain Scale: 0-10 Numeric Is Patient Pain Free? Yes Yes WC - Nurse 1 - General Ulcer Measurement Start: 10/19/24 09:04 Freq: Status: Active Protocol: Activity Type Activity Date Activity User E-sign Co-sign Detail Recorded Client Recorded Date Recorded By Document 10/19/24 09:35 RB [id number] 10/19/24 09:41 RB Document 10/26/24 09:12 RB [id number] 10/26/24 09:25 RB 10/19/24 10/26/24 09:35 09:12 Wound Center Nurse 1 3. R ischium -Combined with other wound No No -Current Size (cm) - Length 0.1 7.4 -Current Size (cm) - Width 0.1 5.2 -Current Size (cm) - Depth 0.1 0.1 -Total Square Cm 0.01 38.48 -Photo Taken Yes -Tunneling No No -Undermining/Tunneling No No -Circular Undermining No No -Exudate Amt Large Large -Exudate Type Serosanguineous Serosanguineous -Wound Margin Thickened Thickened & Rolled Under -Granulation Amt Large (67-100%) Medium (34-66%) -Granulation Quality [place] -Slough/Fibrin Yes Yes -Necrosis Amt Small (1-33%) Medium (34-66%) -Necrotic Tissue Type Adherent Slough Adherent Slough -Structure Exposed N/A N/A -Texture (Trish-wound Skin Appearance) Friable Assessed, Friable -Moisture (Trish-wound Skin Appearance) Assessed Assessed -Color (Trish-wound Skin Appearance) Assessed Assessed -Temperature (Trish-wound Skin No Abnormality No Abnormality Appearance) (Pt Warm) (Pt Warm) -Tenderness on Palpation (Trish-wound No No Skin Appearance) -Ulcer Cleansing Wound Cleanser Wound Cleanser -Foul Odor after Cleansing No No -Anesthetic Used 4% Lidocaine Solution 2. L ischium -Combined with other wound No No -Current Size (cm) - Length 0.1 8.5 -Current Size (cm) - Width 0.1 3 -Current Size (cm) - Depth 0.1 0.2 -Total Square Cm 0.01 25.5 -Photo Taken Yes -Tunneling No No -Undermining/Tunneling No No -Circular Undermining No No -Exudate Amt Large -Exudate Type Serosanguineous -Wound Margin Thickened & Rolled Under -Granulation Amt Medium (34-66%) -Granulation Quality [place] -Slough/Fibrin Yes Yes -Necrosis Amt Medium (34-66%) Medium (34-66%) -Necrotic Tissue Type Adherent Slough Adherent Slough -Structure Exposed N/A N/A -Texture (Trish-wound Skin Appearance) Assessed, Assessed, Fluctuance, Excoriation Scarring -Moisture (Trish-wound Skin Appearance) Weeping Assessed -Color (Trish-wound Skin Appearance) Assessed Assessed -Temperature (Trish-wound Skin No Abnormality No Abnormality Appearance) (Pt Warm) (Pt Warm) -Tenderness on Palpation (Trish-wound No No Skin Appearance) -Ulcer Cleansing Wound Cleanser Wound Cleanser -Foul Odor after Cleansing No No -Anesthetic Used 4% Lidocaine Solution -Wound Comment(s) Dr Price had increase nc O2 to 4l and pulse ox is 93% *1. coccyx -Combined with other wound No -Current Size (cm) - Length 0.1 17 -Current Size (cm) - Width 0.1 9 -Current Size (cm) - Depth 0.1 0.3 -Total Square Cm 0.01 153 -Photo Taken Yes -Tunneling No No -Undermining/Tunneling No No -Circular Undermining No No -Exudate Amt Large Large -Exudate Type Serosanguineous Serosanguineous -Wound Margin Thickened Thickened & Rolled Under -Granulation Amt Medium (34-66%) Medium (34-66%) -Granulation Quality [place] -Slough/Fibrin Yes Yes -Necrosis Amt Medium (34-66%) Medium (34-66%) -Necrotic Tissue Type Adherent Slough Adherent Slough -Structure Exposed N/A N/A -Texture (Trish-wound Skin Appearance) Assessed, Excoriation, Friable Friable -Moisture (Trish-wound Skin Appearance) Assessed Assessed -Color (Trish-wound Skin Appearance) Assessed, Assessed Erythema -Temperature (Trish-wound Skin No Abnormality No Abnormality Appearance) (Pt Warm) (Pt Warm) -Tenderness on Palpation (Trish-wound No No Skin Appearance) -Ulcer Cleansing Wound Cleanser Wound Cleanser -Foul Odor after Cleansing No No -Anesthetic Used 4% Lidocaine Solution -Wound Comment(s) L medial heel right lateral and R lateral foot has intact foot have large fluid filled blister and blister, R heel both have skin has blister intact that was drained last week by Dr Thayer and skin intact - Nurse 2 - General Ulcer CM Notes Start: 10/19/24 09:04 Freq: Status: Active Protocol: Activity Type Activity Date Activity User E-sign Co-sign Detail Recorded Client Recorded Date Recorded By Document 10/19/24 09:46 [id number] 10/19/24 10:11 Document 10/26/24 09:48 [id number] 10/26/24 10:05 10/19/24 10/26/24 09:46 09:48 Wound Center Nurse 2 #5 Right Heel Blister -Time 09:52 -Correct Patient Yes -Correct Side, Site, Position Yes -Correct Procedure Yes -Procedure Performed Yes -Type of Procedure Debridement -Clinical Debridement Epidermis / Dermis -Tissue Removed Epidermis, Dermis -Post Debridement (cm) - Length 5.0 -Post Debridement (cm) - Width 3.4 -Post Debridement (cm) - Depth 0.1 -Total Square (Post) (cm) 17.00 -Area of Debridement (cm) - Length 5.0 -Area of Debridement (cm) - Width 3.4 -Total Square (Area) (cm) 17.00 -Tunneling No -Undermining/Tunneling No -Circular Undermining No -Wound/Ulcer Outcome Not Healed -Ulcer Cleansing Rinsed/ Irrigated with Saline -Foul Odor after Cleansing No -Bioengineered Tissue No -Bleeding Controlled with Pressure -Treatment Response Procedure Tolerated Well -Offloading No -Debridement - Open, 1st 20sq cm Yes -Debridement, Open, ea addt'l 20sq cm 1 or part thereof #4 Left Heel Blister -Time 09:50 -Correct Patient Yes -Correct Side, Site, Position Yes -Correct Procedure Yes -Procedure Performed Yes -Type of Procedure Debridement -Clinical Debridement Epidermis / Dermis -Tissue Removed Epidermis, Dermis -Post Debridement (cm) - Length 5.3 -Post Debridement (cm) - Width 4.0 -Post Debridement (cm) - Depth 0.1 -Total Square (Post) (cm) 21.20 -Area of Debridement (cm) - Length 5.3 -Area of Debridement (cm) - Width 4.0 -Total Square (Area) (cm) 21.20 -Tunneling No -Undermining/Tunneling No -Circular Undermining No -Wound/Ulcer Outcome Not Healed -Ulcer Cleansing Rinsed/ Irrigated with Saline -Foul Odor after Cleansing No -Bioengineered Tissue No -Bleeding Controlled with Pressure -Treatment Response Procedure Tolerated Well -Offloading No -Debridement - Open, 1st 20sq cm No 3. R ischium -Time 09:51 09:48 -Correct Patient Yes Yes -Correct Side, Site, Position Yes Yes -Correct Procedure Yes Yes -Procedure Performed Yes Yes -Type of Procedure Debridement Debridement -Clinical Debridement Muscle / Fascia Muscle / Fascia -Tissue Removed Muscle Muscle -Post Debridement (cm) - Length 11.0 7.5 -Post Debridement (cm) - Width 5.5 6.0 -Post Debridement (cm) - Depth 0.1 0.1 -Total Square (Post) (cm) 60.50 45.00 -Area of Debridement (cm) - Length 11.0 7.5 -Area of Debridement (cm) - Width 5.5 6.0 -Total Square (Area) (cm) 60.50 45.00 -Tunneling No No -Undermining/Tunneling No No -Circular Undermining No No -Wound/Ulcer Outcome Not Healed Not Healed -Ulcer Cleansing Rinsed/ Rinsed/ Irrigated with Irrigated with Saline Saline -Foul Odor after Cleansing No No -Bioengineered Tissue No No -Bleeding Controlled with Pressure Pressure -Treatment Response Procedure Procedure Tolerated Well Tolerated Well -Offloading No No -Debridement - Muscle / Fascia, 1st No No 20sq cm 2. L ischium -Time :51 09:49 -Correct Patient Yes Yes -Correct Side, Site, Position Yes Yes -Correct Procedure No Yes -Procedure Performed No Yes -Type of Procedure Debridement -Clinical Debridement Subcutaneous -Tissue Removed Subcutaneous -Tunneling No -Undermining/Tunneling No -Circular Undermining No -Wound/Ulcer Outcome Not Healed Not Healed -Ulcer Cleansing Rinsed/ Irrigated with Saline -Foul Odor after Cleansing No No -Bioengineered Tissue No No -Bleeding Controlled with Pressure Pressure -Treatment Response Procedure Tolerated Well -Offloading No No -Debridement - Subq, 1st 20sq cm No Yes *1. coccyx -Time 09:52 09:49 -Correct Patient Yes Yes -Correct Side, Site, Position Yes Yes -Correct Procedure Yes Yes -Procedure Performed Yes Yes -Type of Procedure Debridement Debridement -Clinical Debridement Muscle / Fascia Muscle / Fascia -Tissue Removed Muscle Muscle -Post Debridement (cm) - Length 11.5 9.5 -Post Debridement (cm) - Width 15.0 16.2 -Post Debridement (cm) - Depth 0.1 0.1 -Total Square (Post) (cm) 172.50 153.90 -Area of Debridement (cm) - Length 11.5 9.5 -Area of Debridement (cm) - Width 15.0 16.2 -Total Square (Area) (cm) 172.50 153.90 -Tunneling No No -Undermining/Tunneling No No -Circular Undermining No No -Wound/Ulcer Outcome Not Healed Not Healed -Ulcer Cleansing Rinsed/ Rinsed/ Irrigated with Irrigated with Saline Saline -Foul Odor after Cleansing No -Bioengineered Tissue No No -Bleeding Controlled with Pressure Pressure -Treatment Response Procedure Procedure Tolerated Well Tolerated Well -Offloading No -Debridement - Muscle / Fascia, 1st Yes Yes 20sq cm -Debridement, Muscle/Fascia, ea addt'l 11 9 20sq cm or part thereof Pain Scale: 0-10 Numeric Is Patient Pain Free? Yes Yes - Nurse 3 - General Ulcer D/C NN Start: 10/19/24 09:04 Freq: Status: Active Protocol: Activity Type Activity Date Activity User E-sign Co-sign Detail Recorded Client Recorded Date Recorded By Document 10/19/24 10:39 RB [id number] 10/19/24 10:44 RB Document 10/26/24 10:12 KW [id number] 10/26/24 10:14 KW 10/19/24 10/26/24 10:39 10:12 Wound Care Center Nurse 3 #5 Right Heel Blister -Primary Dressing Applied NonAdherent Contact Layer -Primary Dressing Covered/Secured with Dry Gauze & Roll Gauze, Secured with Tape #4 Left Heel Blister -Other Dressing adaptic -Primary Dressing Covered/Secured with Dry Gauze & Roll Gauze, Secured with Tape 3. R ischium -Ulcer Cleansing Rinsed/ Irrigated with Saline -Other Dressing dakins dakins gauze moistened gauze with adaptic / ABD and fluffed gauze -Primary Dressing Covered/Secured with Secured with Dry Gauze, Tape Secured with Tape 2. L ischium -Ulcer Cleansing Rinsed/ Irrigated with Saline -Primary Dressing Applied Optilok 5x5 1/2 -Other Dressing dakins dakins with moistened gauze adaptic and / abd fluffed gauze -Primary Dressing Covered/Secured with Secured with Dry Gauze, Tape Secured with Tape -Optilok 5x5 1/2 1 *1. coccyx -Other Dressing dakins dakins and moistened gauze adaptic fluff / abd gauze -Primary Dressing Covered/Secured with Secured with Dry Gauze, Tape Secured with Tape -Wound Comment(s) adaptic to L heel ABD, adaptic to R lateral foot ABD Treatment Response Procedure Tolerated Well Pain Scale: 0-10 Numeric Is Patient Pain Free? No Yes WC - Visit Discharge Discharge Condition Stable Stable Ambulatory Status Wheelchair Wheelchair Transportation OR Medication Reconcilliation completed & No No provided to patient/care provider Clinical Summary of Care Provided Yes Yes Additional Wound Wound debrided: right ischium Laterality: Right Wound Grade/Stage: Stage III Type of Debridement: Excisional debridement Anesthesia Used: 4% Lidocaine Solution Depth: Down to and including healthy tissue and in the subcutaneous layer Percentage of wound debrided: 100 Instrument Used: 5mm curette Tissue Removed: Yellow slough, devitalized tissue Severity: Fat Layer Exposed Amount of bleeding with debridement: Mild Bleeding Controlled with: Compression and gauze Patient tolerated procedure: Patient tolerated procedure well Additional Wound Wound debrided: coccyx Laterality: Not Applicable Wound Grade/Stage: Stage IV Type of Debridement: Excisional debridement Anesthesia Used: 4% Lidocaine Solution Depth: Down to and including healthy tissue, in the subcutaneous layer and to muscle Percentage of wound debrided: 100 Instrument Used: 5mm curette Tissue Removed: Yellow slough, devitalized tissue Severity: Necrosis of Muscle Amount of bleeding with debridement: Mild Bleeding Controlled with: Compression and gauze Patient tolerated procedure: Patient tolerated procedure well Assessment/Plan Assessment/Plan (1) Chronic pain: CODE(S): G89.29 - Other chronic pain QUALIFIERS: Chronic pain type: chronic pain syndrome Qualified Code(s): G89.4 - Chronic pain syndrome (2) Hypoxia: CODE(S): R09.02 - Hypoxemia (3) History of paraplegia: CODE(S): Z86.69 - Personal history of other diseases of the nervous system and sense organs (4) Chronic indwelling Campbell catheter: CODE(S): Z97.8 - Presence of other specified devices (5) Type 2 diabetes mellitus: CODE(S): E11.9 - Type 2 diabetes mellitus without complications QUALIFIERS: Diabetes mellitus vermin exterminator insulin use: without [facility] use Diabetes mellitus complication status: with neurologic complications Diabetes mellitus complication detail: with polyneuropathy Qualified Code(s): E11.42 - Type 2 diabetes mellitus with diabetic polyneuropathy (6) Chronic anticoagulation: CODE(S): Z79.01 - shelter (current) use of anticoagulants (7) History of deep vein thrombosis: CODE(S): Z86.718 - Personal history of other venous thrombosis and embolism (8) Decubitus ulcer of sacral region, stage 4: CODE(S): L89.154 - Pressure ulcer of sacral region, stage 4 (9) Decubitus ulcer of left perineal ischial region, stage 2: CODE(S): L89.322 - Pressure ulcer of left buttock, stage 2 (10) Hx of spinal surgery: CODE(S): Z98.890 - Other specified postprocedural states (11) Colostomy status: CODE(S): Z93.3 - Colostomy status (12) HTN (hypertension): CODE(S): I10 - Essential (primary) hypertension QUALIFIERS: Hypertension type: primary hypertension Qualified Code(s): I10 - Essential (primary) hypertension (13) BATOOL treated with BiPAP: CODE(S): G47.33 - Obstructive sleep apnea (adult) (pediatric) (14) Lymphedema: CODE(S): I89.0 - Lymphedema, not elsewhere classified (15) Decubitus ulcer of right ischium, stage 3: CODE(S): L89.313 - Pressure ulcer of right buttock, stage 3 PLAN: Plan Debridement performed today in clinic as annotated above. At home wound-care instructions: The patient's ulcers will be washed with antibacterial soap and water and then will use Adaptic and Dakins wet to dry to wound bed and cover with gauze and superabsorber for heavy drainage twice daily. Keep dressing clean and dry. Left heel and right lateral foot will be covered with adaptic and ABD and changed daily. Off-loading: The patient was instructed to avoid pressure and friction on the affected areas. Reposition every 2 hours at minimum. Avoid prolonged standing and/or dangling of legs. When seated, feet should be elevated at chest level. Continue air mattress. Order has been written for alternating pressure air mattress to assist in offloading pressure to his ulcers. He now has alternating pressure air mattress to assist in offloading. Diet: Patient encouraged to increase protein intake while taking caution to avoid high carbohydrate and/or sugar intake. He is getting [place] protein supplement at [facility]. Labs/cultures/imaging: Will obtain previous imaging results. Most recent A1C 7.9% on 07/23/24. Wound culture showed multiple bacteria and he has completed on Flagyl and Cefdinir. Follow-up: Return in 1 week for wound care follow up. Return sooner or report to the emergency room should symptoms worsen, or new symptoms arise. Note: [employer] speech recognition software configuration specialist software was used to create portions of this document. Sound-alike and misspelled words, as well as other software configuration specialist errors may be contained in the documentation.
--- NOTE | 2024-10-29 08:40 | WC ---
PHOTO 10/26/24 LEFT ISCHIAL
--- NOTE | 2024-10-29 08:41 | WC ---
PHOTO 10/26/24 RIGHT ISCHIAL
--- NOTE | 2024-10-29 08:42 | WC ---
PHOTO 10/26/24 MAURO
[2024-11-09 08:57] VITALS: BMI 43.3
[2024-11-09 09:23] VITALS: BP 118/74; PULSE 104; RESP 18; TEMP 36.9; BMI 43.3
--- NOTE | 2024-11-09 12:46 | WC ---
PHOTO 11/09/24
--- NOTE | 2024-11-09 12:47 | WC ---
PHOTO 11/09/24
--- NOTE | 2024-11-09 12:47 | WC ---
PHOTO 11/09/24 MAURO
--- NOTE | 2024-11-09 12:48 | WC ---
PHOTO 11/09/24 LEFT HEEL
--- NOTE | 2024-11-09 14:10 | PCM.WC.PN ---
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 well Assessment/Plan Assessment/Plan (1) Chronic pain: CODE(S): G89.29 - Other chronic pain QUALIFIERS: Chronic pain type: chronic pain syndrome Qualified Code(s): G89.4 - Chronic pain syndrome (2) Hypoxia: CODE(S): R09.02 - Hypoxemia (3) History of paraplegia: CODE(S): Z86.69 - Personal history of other diseases of the nervous system and sense organs (4) Chronic indwelling Campbell catheter: CODE(S): Z97.8 - Presence of other specified devices (5) Type 2 diabetes mellitus: CODE(S): E11.9 - Type 2 diabetes mellitus without complications QUALIFIERS: Diabetes mellitus complication detail: with polyneuropathy Diabetes mellitus complication status: with neurologic complications Diabetes mellitus intermediate manager insulin use: without intermediate manager use Qualified Code(s): E11.42 - Type 2 diabetes mellitus with diabetic polyneuropathy (6) Chronic anticoagulation: CODE(S): 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 (7) History of deep vein thrombosis: CODE(S): Z86.718 - Personal history of other venous thrombosis and embolism (8) Decubitus ulcer of sacral region, stage 4: CODE(S): L89.154 - Pressure ulcer of sacral region, stage 4 (9) Decubitus ulcer of left perineal ischial region, stage 2: CODE(S): L89.322 - Pressure ulcer of left buttock, stage 2 (10) Hx of spinal surgery: CODE(S): Z98.890 - Other specified postprocedural states (11) Colostomy status: CODE(S): Z93.3 - Colostomy status (12) HTN (hypertension): CODE(S): I10 - Essential (primary) hypertension QUALIFIERS: Hypertension type: primary hypertension Qualified Code(s): I10 - Essential (primary) hypertension (13) BATOOL treated with BiPAP: CODE(S): G47.33 - Obstructive sleep apnea (adult) (pediatric) (14) Lymphedema: CODE(S): I89.0 - Lymphedema, not elsewhere classified (15) Decubitus ulcer of right ischium, stage 3: CODE(S): L89.313 - Pressure ulcer of right buttock, stage 3 PLAN: Plan Debridement performed today in clinic as annotated above. At home wound-care instructions: The patient's ulcers will be washed with antibacterial soap and water and then will use Adaptic and Dakins wet to dry to wound bed and cover with gauze and superabsorber for heavy drainage twice daily. Keep dressing clean and dry. Left heel and right lateral foot will be covered with adaptic and ABD and changed daily. Off-loading: The patient was instructed to avoid pressure and friction on the affected areas. Reposition every 2 hours at minimum. Avoid prolonged standing and/or dangling of legs. When seated, feet should be elevated at chest level. Continue air mattress. Order has been written for alternating pressure air mattress to assist in offloading pressure to his ulcers. He now has alternating pressure air mattress to assist in offloading. Diet: Patient encouraged to increase protein intake while taking caution to avoid high carbohydrate and/or sugar intake. He is getting Wiliam protein supplement at [facility]. Labs/cultures/imaging: Will obtain previous imaging results. Most recent A1C 7.9% on 07/23/24. Wound culture showed multiple bacteria and he has completed on Flagyl and Cefdinir. Augmentin prescribed until results of wound culture are back. Follow-up: Return in 2 weeks for wound care follow up due to the 16 of November holiday. Return sooner or report to the emergency room should symptoms worsen, or new symptoms arise. Note: [employer]hat speech recognition brokerage office manager software was used to create portions of this document. Sound-alike and misspelled words, as well as other brokerage office manager errors may be contained in the documentation.
== END 2024-11-12 23:59 | disposition home or self-care (01) ==
LOC: WC 09:00
PROVIDERS: PCP Internal Medicine; Referring Provider Internal Medicine; Visit Provider Family Medicine
DX: L89.154 Pressure ulcer of sacral region, stage 4 (principal); L89.313 Pressure ulcer of right buttock, stage 3; G82.20 Paraplegia, unspecified; L89.322 Pressure ulcer of left buttock, stage 2; Z93.3 Colostomy status; E66.01 Morbid (severe) obesity due to excess calories; Z68.41 Body mass index [BMI] 40.0-44.9, adult; E11.42 Type 2 diabetes mellitus with diabetic polyneuropathy; Z79.4 Long term (current) use of insulin; M54.9 Dorsalgia, unspecified; G47.33 Obstructive sleep apnea (adult) (pediatric); I89.0 Lymphedema, not elsewhere classified; S90.821A Blister (nonthermal), right foot, initial encounter; S90.822A Blister (nonthermal), left foot, initial encounter; X58.XXXA Exposure to other specified factors, initial encounter; I10 Essential (primary) hypertension; G89.4 Chronic pain syndrome; R09.02 Hypoxemia; Z79.01 Long term (current) use of anticoagulants; Z79.84 Long term (current) use of oral hypoglycemic drugs; Z79.85 Long-term (current) use of injectable non-insulin antidiabetic drugs; Z86.718 Personal history of other venous thrombosis and embolism; Z87.39 Personal history of other diseases of the musculoskeletal system and connective tissue
CPT/HCPCS: 11042; 11043; 11046; 97597; 97598

== ENCOUNTER → 2024-11-13 06:15 | Outpatient (REF) | payer MEDICAID, SELFPAY ==
[2024-11-13 11:07] LABS: Anion Gap 8 (5-15); BUN 17 mg/dL (4-19); BUN/Creat Ratio 26.7 RATIO (10-20); Calcium,Total 8.6 mg/dL (7.6-11.0); Carbon Dioxide 33.0 mmol/L (21.0-32.0); Chloride 97 mmol/L (98-108); Glucose 151 mg/dL (70-99); Potassium 4.1 mmol/L (3.3-5.1)
[2024-11-13 11:20] LABS: Hematocrit 30.1 % (40-54); Hemoglobin 8.1 g/dL (13.0-16.5); Immature Granulocytes Count 0.040 X10^3/uL (0.0-0.0); Mean Corp Hgb Conc 26.9 g/dL (32-36); Mean Corpuscular Volume 80.9 fL (80-94); Mean Platelet Vol. 9.6 fl (6.2-12.0); NRBC Flagged by Analyzer 0 % (0-5); Platelet Count 351 K/mm3 (150-450); RBC Distribution Width CV 17.9 % (11.6-14.6); RBC Distribution Width SD 52.9 fl (35.1-43.9); Red Blood Count 3.72 M/mm3 (4.6-6.2); White Blood Count 8.5 K/mm3 (4.4-11.0)
== END ==
LOC: OLS.WHLEAS 06:15
PROVIDERS: PCP Internal Medicine; Visit Provider Internal Medicine
DX: E11.9 Type 2 diabetes mellitus without complications (principal)
CPT/HCPCS: 36415; 80048; 85025

== ENCOUNTER → 2024-11-19 | Outpatient (REF) | payer MEDICAID, SELFPAY ==
[2024-11-19 08:07] LABS: Hematocrit 31.1 % (40-54); Hemoglobin 8.5 g/dL (13.0-16.5); Immature Granulocytes Count 0.060 X10^3/uL (0.0-0.0); Mean Corp Hgb Conc 27.3 g/dL (32-36); Mean Corpuscular Volume 79.3 fL (80-94); Mean Platelet Vol. 9.6 fl (6.2-12.0); NRBC Flagged by Analyzer 0 % (0-5); Platelet Count 361 K/mm3 (150-450); RBC Distribution Width CV 17.9 % (11.6-14.6); RBC Distribution Width SD 51.5 fl (35.1-43.9); Red Blood Count 3.92 M/mm3 (4.6-6.2); White Blood Count 9.9 K/mm3 (4.4-11.0)
[2024-11-19 08:22] LABS: Anion Gap 12 (5-15); BUN 18 mg/dL (4-19); BUN/Creat Ratio 25.0 RATIO (10-20); Calcium,Total 8.7 mg/dL (7.6-11.0); Carbon Dioxide 30.3 mmol/L (21.0-32.0); Chloride 94 mmol/L (98-108); Glucose 220 mg/dL (70-99); Potassium 3.8 mmol/L (3.3-5.1)
== END | disposition home or self-care (01) ==
LOC: OLS.WHLEAS 05:00
PROVIDERS: PCP Internal Medicine; Visit Provider Internal Medicine
DX: E11.9 Type 2 diabetes mellitus without complications (principal)
CPT/HCPCS: 36415; 80048; 85025

== ENCOUNTER → 2024-11-26 | Outpatient (REF) | payer MEDICAID, SELFPAY ==
--- OUTSIDE RECORDS SUMMARY | 2024-11-26 04:44 | XMS RPT_ITS | CCD ---
Author Organization [facility] [employer] Care Team Providers Care Computer Repair Instructor Name Role Phone REA LOWE Unavailable Unavailable NELL, OMARI Unavailable Unavailable NELL, OMARI Unavailable Unavailable NO REFERRING DR Unavailable Unavailable BOLLIN, JOSÉ MIGUEL E Unavailable Unavailable REA LOWE Unavailable Unavailable TOMMY, JOHN Unavailable Unavailable TMOMY, JOHN Unavailable Unavailable NO REFERRING DR Unavailable Unavailable BOLLIN, JOSÉ MIGUEL E Unavailable Unavailable BOLLIN, JOSÉ MIGUEL E Unavailable Unavailable NO REFERRING DR Unavailable Unavailable BOLLIN, JOSÉ MIGUEL E Unavailable Unavailable BOLLIN, JOSÉ MIGUEL E Unavailable Unavailable BOLLIN, JOSÉ MIGUEL E Unavailable Unavailable NO REFERRING DR Unavailable Unavailable BOLLIN, JOSÉ MIGUEL E Unavailable Unavailable NO REFERRING DR Unavailable Unavailable BOLLIN, JOSÉ MIGUEL E Unavailable Unavailable BOLLIN, JOSÉ MIGUEL E Unavailable Unavailable IMCA Unavailable Unavailable NELL, OMARI Unavailable Unavailable IMCA Unavailable Unavailable BOLLIN, JOSÉ MIGUEL E Unavailable Unavailable NELL, OMARI Unavailable Unavailable NELL, OMARI Unavailable Unavailable NELL, OMARI Unavailable Unavailable RUKHSANA MILLER Unavailable Unavailable GRACY TALLEY Unavailable Unavailable Dr. Peter Thayer Primary Care Provider Dr. Donovan Lamar Emergency Provider [phone] Dr. Michele Montes Admit Provider Dr. Michele Montes Other Provider Dr. Florencio Greenfield Other Provider Dr. Vanessa Matias Attending Provider Dr. Vanessa Matias Other Provider Dr. Minda Cm Other Provider Dr. Florencio Greenfield Attending Provider Dr. Carlos Lacy Other Provider [phone] Alexei Marley Other Provider Malys DO, Peter A Primary Care Provider VANESSA MATIAS Referring Unavailab SENA Wise Attending Unavailable PETER THAYER A Primary Care Unavailable KOJO JACOBSON Admitting Unavailable WINNIE PARKS Consulting Unavailable Dr. Vanessa Matias Referring Provider Dr. Lucian Maloney Attending Provider Dr. Alexei Marley Referring Provider Dr. Lazarus Rojo Attending Provider Dr. Lucian Beckett Emergency Provider Dr. Terri Nino Admit Provider Dr. Terri Nino Other Provider Dr. Calista Aburto Other Provider Dr. Percy Priec Attending Provider Dr. Mackenzie Rebollar Attending Provider Dr. Calista Aburto Attending Provider Caesar, Dr. Dina Colby Other Provider Dr. Ronald Fam Other Provider Caesar, Dr. Dina Colby Attending Provider Dr. Raphael Curtis Other Provider MALBRIANNE, PETER A Primary Care Unavailable MALYS, PETER A Primary Care Unavailable Malys DO, Peter A Primary Care Provider JUAN, MAXIMILIAN Admitting Unavailable JUAN, MAXIMILIAN Attending Unavailable MALYS, PETER A Primary Care Unavailable MARII MARTIN Consulting Unavailable TOLU SHARMA Referring Unavailable DHRUV BEVERLY, ROCIO Campuzano Attending Unavailab DR PETER Rosales DO Primary Care Unavailable DR PETER THAYER DO Primary Care Physician Peter Villarreal PT Unavailable Unavailable Dr. Peter Thayer Primary Care Provider [phone] Lian JORDAN WORKER, JORDAN WORKER-C Nay Attending Provider Dr. Rocio Bartlett Attending Provider [phone] Ranjan Mistry Emergency Provider Dr. Terri Nino Admit Provider Dr. Terri Nino Other Provider Dr. Palmira Johnson Attending Provider Unavailable Dr. Palmira Johnson Other Provider Unavailable Dr. Latha Rosado Other Provider Dr. Vanessa Matias Attending Provider Dr. Vanessa Matias Other Provider Flaca DO, Peter A Primary Care Provider Oleghe, Efewongbe B Primary Care Provider WILLEM GLASER Attending Unavailable MALYS, PETER A Primary Care Unavailable MALYS, PETER A Primary Care Unavailable WILLEM GLASER Attending Unavailable MALYS, PETER A Primary Care Unavailable MALYS, PETER A Primary Care Unavailable NELIDAAMY Campuzano Attending Unavailable AMY KRAUSE M Admitting Unavailable SWATI MARIA C R Attending Unavailable SWATI, MARIA C R Admitting Unavailable MALYS, PETER A Primary Care Unavailable OLEGHE, EFEWONGBE Primary Care Unavailable SAID, MOHEB Attending Unavailable SAID, MOHEB Referring Unavailable SAID, MOHEB Attending Unavailable SAID, MOHEB Referring Unavailable OLEGHE, EFEWONGBE Primary Care Unavailable ELLYN DE LEÓN Admitting Unavailable PRINCE BEAR Attending Unavailable JEAN MOSER Unavailable NONE, PCP Referring Unavailable OLEGHE, EFEWONGBE Primary Care Unavailable OLEGHE, EFEWONGBE Primary Care Unavailable SAID, MOHEB Attending Unavailable SAID, MOHEB Attending Unavailable OLEGHE, EFEWONGBE Primary Care Unavailable OLEGHE, EFEWONGBE Primary Care Unavailable SAID, MOHEB Referring Unavailable SAID, MOHEB Attending Unavailable Dr. Rocio Bartlett MD Primary Care Provider Rocio Bartlett MD Attending Provider UnavailDr. Rocio Haley MD Attending Provider [phone] Lian JORDAN WORKER-C, Nay Attending Provider Elina BEVERLY, Dr. Bautista Attending Provider Elina BEVERLY, Dr. Bautista Referring Provider Dhruv BEVERLY, Dr. Melgoza Referring Provider John BEVERLY, Dr. Lamonte Licea Attending Provider Dhruv BEVERLY, Rocio Referring Provider Unavailanuja Thayer DO, Dr. Dillon Attending Provider Dhruv BEVERLY, Dr. Melgoza Primary Care Provider Dhruv BEVERLY, Rocio Attending Provider Unavailanuja Bartlett MD, Dr. Melgoza Primary Care Provider Dhruv BEVERLY, Rocio Attending Provider Unavaila atif Beal JORDAN WORKER-C, Nay Attending Provider Dhruv BEVERLY, Dr. Melgoza Attending Provider Madeleine BEVERLY, Dr. Bernabe Emergency Provider Elizabeth BEVERLY, Dr. Chavis Admit Provider Unavailable Elizabeth BEVERLY, Dr. Chavsi Attending Provider Unavailanuja Johnson MD, Dr. Chavis Other Provider Unavailable Peter BEVERLY, Dr. Garcia Attending Provider Dhruv BEVERLY, Dr. Melgoza Primary Care Provider Rocio Bartlett MD Attending Provider Unavailanuja Bartlett MD, Dr. Melgzoa Primary Care Provider Dhruv BEVERLY, Rocio Attending Provider Unavaila atif Beal JORDAN WORKER-C, Nay Attending Provider Peter BEVERLY, Dr. Garcia Attending Provider Dr. Ibrahima Kolb DO Emergency Provider Albert GARCIA, Dr. Greer Admit Provider Dr. Percy Price DO Attending Provider Dr. Percy Price DO Referring Provider Dhruv BEVERLY, Dr. Melgoza Primary Care Provider Rocio Bartlett MD Attending Provider Kay Bartlett MD, Dr. Melgoza Primary Care Provider Dhruv BEVERLY, Rocio Attending Provider Rea Navarro Attending Provider Albert GARCIA, Dr. Greer Other Provider [phone] Shay BEVERLY, Dr. Hurtado Other Provider Cordelia BEVERLY, Dr. Bahena Other Provider Azeem BEVERLY, Dr. Colin Other Provider Parag GARCIA, Dr. Reagan Other Provider Jahaira BEVERLY, Dr. Palmira Aguirre Other Provider Brittany BEVERLY, Dr. Ballard Other Provider Justine BEVERLY, Dr. Qureshi Other Provider Nisha BEVERLY, Dr. Encarnacion Other Provider Michelle BEVERLY, Dr. Tesfaye Other Provider Alfonzo BEVERLY, Dr. Pena Other Provider Reji BEVERLY, Dr. Yoder Other Provider Amaury BEVERLY, Dr. Virk Other Provider Ginna BEVERLY, Dr. Shanks [facility] Still MD, Dr. Garcia Other Provider Dr. Bunny Hughes MD Other Provider Dr. Juaquin York MD Other Provider Dr. Americo Bryan MD Other Provider Dr. Ahsan Verdin DO Other Provider Lisa BEVERLY, Dr. Marion Other Provider Seng BEVERLY, Dr. Price Other Provider [phone] Dr. Manuelito Porter DO Other Provider Yvon BEVERLY, Dr. Laureano Other Provider Juan BEVERLY, Dr. Johnson Other Provider [phone] Feliciano BEVERLY, Dr. Lujan Attending Provider Dr. Maurizio Parra DO Other Provider Toi BEVERLY, Dr. Holloway Other Provider Dr. Tez Tuttle DO Attending Provider Aida GARCIA, Dr. Arias Attending Provider Feliciano BEVERLY, Dr. Lujan Other Provider Dhruv BEVERLY, Dr. Melgoza Primary Care Provider Dhruv BEVERLY, Rocio Attending Provider Unavaila ble Lian JORDAN WORKER-C, Nay Attending Provider Lian JORDAN WORKER-C, Nay Attending Provider Oleghe, Efewongbe Primary Care Unavailable Oleghe OLS, Efewongbe Attending Unavailabl e Tickton JORDAN WORKERNay Referring Unavailable Tickton JORDAN WORKERNay Attending Unavailable Oleghe, Efewongbe Primary Care Unavailable Oleghe, Efewongbe Primary Care Unavailable Tickton JORDAN WORKERNay Attending Unavailable Oleghe, Efewongbe Primary Care Unavailable Oleghe OLS, Efewongbe Attending Unavailabl e Oleghe, Efewongbe Primary Care Unavailable Oleghe OLS, Efewongbe Attending Unavailabl e Oleghe, Efewongbe Primary Care Unavailable Oleghe OLS, Efewongbe Attending Unavailabl e Oleghe, Efewongbe Primary Care Unavailable Michele Antoine Attending Unavailable Michele Antoine Referring Unavailable Rylee Zepeda Attending Unavailable Oleghe, Efewongbe Primary Care Unavailable Oleghe OLS, Efewongbe Attending Unavailabl e Oleghe, Efewongbe Primary Care Unavailable Oleghe, Efewongbe Attending Unavailable Oleghe, Efewongbe Referring Unavailable Oleghe, Efewongbe Primary Care Unavailable Oleghe, Efewongbe Attending Unavailable Oleghe, Efewongbe Referring Unavailable Oleghe, Efewongbe Primary Care Unavailable Oleghe, Efewongbe Attending Unavailable Oleghe, Efewongbe Referring Unavailable Oleghe, Efewongbe Primary Care Unavailable Oleghe, Efewongbe Attending Unavailable Oleghe, Efewongbe Referring Unavailable Oleghe, Efewongbe Primary Care Unavailable Oleghe OLS, Efewongbe Attending Unavailabl e Oleghe OLS, Efewongbe Referring Unavailabl e Oleghe, Efewongbe Primary Care Unavailable Oleghe OLS, Efewongbe Attending Unavailabl e Oleghe, Efewongbe Primary Care Unavailable Oleghe, Efewongbe Referring Unavailable Oleghe, Efewongbe Primary Care Unavailable Lamonte Lopez Attending Unavailable Oleghe, Efewongbe Primary Care Unavailable Tickton JORDAN WORKER, Nay Attending Unavailable Oleghe, Efewongbe Primary Care Unavailable Tickton JORDAN WORKER, Any Attending Unavailable Oleghe, Efewongbe Primary Care Unavailable Tickton JORDAN WORKER, Nay Attending Unavailable Oleghe, Efewongbe Primary Care Unavailable Oleghe OLS, Efewongbe Attending Unavailabl e Oleghe, Efewongbe Referring Unavailable Oleghe, Efewongbe Primary Care Unavailable Peter Thayer Attending Unavailable Oleghe, Efewongbe Primary Care Unavailable Oleghe OLS, Efewongbe Attending Unavailabl e Oleghe OLS, Efewongbe Referring Unavailabl e Oleghe, Efewongbe Primary Care Unavailable Oleghe OLS, Efewongbe Attending Unavailabl e Oleghe, Efewongbe Primary Care Unavailable Oleghe OLS, Efewongbe Attending Unavailabl e Oleghe, Efewongbe Primary Care Unavailable Oleghe OLS, Efewongbe Attending Unavailabl e Oleghe, Efewongbe Primary Care Unavailable Oleghe OLS, Efewongbe Attending Unavailabl e Oleghe, Efewongbe Attending Unavailable Oleghe, Efewongbe Referring Unavailable Oleghe, Efewongbe Primary Care Unavailable Oleghe, Efewongbe Primary Care Unavailable Oleghe OLS, Efewongbe Attending Unavailabl e Oleghe, Efewongbe Primary Care Unavailable Oleghe OLS, Efewongbe Attending Unavailabl e Oleghe OLS, Efewongbe Attending Unavailabl e Oleghe, Efewongbe Primary Care Unavailable Oleghe OLS, Efewongbe Attending Unavailabl e Oleghe, Efewongbe Primary Care Unavailable Oleghe OLS, Efewongbe Attending Unavailabl e Oleghe, Efewongbe Primary Care Unavailable Oleghe OLS, Efewongbe Attending Unavailabl e Oleghe OLS, Efewongbe Referring Unavailabl e Oleghe, Efewongbe Primary Care Unavailable Oleghe, Efewongbe Primary Care Unavailable Oleghe OLS, Efewongbe Attending Unavailabl e Oleghe, Efewongbe Primary Care Unavailable Oleghe OLS, Efewongbe Attending Unavailabl e Friend, Bridger Attending Unavailable Oleghe, Efewongbe Primary Care Unavailable Oleghe OLS, Efewongbe Attending Unavailabl e Oleghe, Efewongbe Primary Care Unavailable Oleghe, Efewongbe Referring Unavailable MalPeter decker Attending Unavailable Oleghe, Efewongbe Primary Care Unavailable Oleghe OLS, Efewongbe Attending Unavailabl e Oleghe OLS, Efewongbe Referring Unavailabl e Oleghe, Efewongbe Primary Care Unavailable Oleghe OLS, Efewongbe Attending Unavailabl e Oleghe, Efewongbe Primary Care Unavailable Tickton OLS Nay Attending Unavailable Oleghe, Efewongbe Primary Care Unavailable Oleghe, Efewongbe Referring Unavailable Oleghe, Efewongbe Primary Care Unavailable Brigitte Thayera Attending Unavailable Oleghe, Efewongbe Primary Care Unavailable Oleghe OLS, Efewongbe Attending Unavailabl e Oleghe OLS, Efewongbe Attending Unavailabl e Oleghe, Efewongbe Primary Care Unavailable Oleghe, Efewongbe Primary Care Unavailable Oleghe OLS, Efewongbe Referring Unavailabl e Oleghe OLS, Efewongbe Attending Unavailabl e Oleghe, Efewongbe Primary Care Unavailable Oleghe OLS, Efewongbe Attending Unavailabl e Oleghe, Efewongbe Attending Unavailable Oleghe, Efewongbe Referring Unavailable Oleghe, Efewongbe Primary Care Unavailable Oleghe, Efewongbe Primary Care Unavailable Tickton JORDAN WORKER, Nay Attending Unavailable Oleghe, Efewongbe Primary Care Unavailable Tickton JORDAN WORKER, Nay Attending Unavailable Tickton JORDAN WORKER, Nay Attending Unavailable Oleghe, Efewongbe Primary Care Unavailable Oleghe, Efewongbe Referring Unavailable Michele Antoine Attending Unavailable Oleghe, Efewongbe Primary Care Unavailable Oleghe, Efewongbe Attending Unavailable Oleghe, Efewongbe Primary Care Unavailable Oleghe, Efewongbe Attending Unavailable Oleghe, Efewongbe Primary Care Unavailable Oleghe, Efewongbe Primary Care Unavailable Tickton JORDAN WORKER, Nay Attending Unavailable Rea Flores Attending Unavailable Oleghe, Efewongbe Primary Care Unavailable Oleghe, Efewongbe Primary Care Unavailable Tickton JORDAN WORKER, Nay Attending Unavailable Oleghe, Efewongbe Primary Care Unavailable Tickton JORDAN WORKER, Nay Attending Unavailable Oleghe, Efewongbe Referring Unavailable Kassie Portillo Attending Unavailable Oleghe, Efewongbe Primary Care Unavailable Tickton JORDAN WORKER, Nay Attending Unavailable Oleghe, Efewongbe Primary Care Unavailable Tickton JORDAN WORKER, Nay Attending Unavailable Oleghe, Efewongbe Primary Care Unavailable Tickton JORDAN WORKER, Nay Attending Unavailable Oleghe, Efewongbe Primary Care Unavailable Oleghe, Efewongbe Attending Unavailable Oleghe, Efewongbe Primary Care Unavailable Oleghe, Efewongbe Primary Care Unavailable Tickton JORDAN WORKER, Nay Attending Unavailable Oleghe, Efewongbe Primary Care Unavailable Tickton JORDAN WORKER, Nay Attending Unavailable Oleghe, Efewongbe Attending Unavailable Oleghe, Efewongbe Primary Care Unavailable Oleghe, Efewongbe Primary Care Unavailable Tickton JORDAN WORKER, Nay Attending Unavailable Oleghe, Efewongbe Attending Unavailable Oleghe, Efewongbe Primary Care Unavailable Oleghe, Efewongbe Primary Care Unavailable Tickton JORDAN WORKER, Nay Attending Unavailable Oleghe, Efewongbe Primary Care Unavailable Tickton JORDAN WORKER, Nay Attending Unavailable Tickton JORDAN WORKER, Nay Attending Unavailable Oleghe, Efewongbe Primary Care Unavailable Bryant Day Consulting Unavailable Percy Price Admitting Unavailable Percy Price Referring Unavailable Maurizio Parra Attending Unavailable Oleghe, Efewongbe Primary Care Unavailable Josef Storey Consulting Unavailable Cristi Gann Consulting Unavailable Tez Tuttle Consulting Unavailable Palmira Campo Consulting Unavailable Elio Soto Consulting Unavailable Titus Fletcher Consulting Unavailable Alysha Cameron Consulting Unavailab yulia Martinez Brien Consulting Unavailable Mejía, Jean Consulting Unavailable Paresh Mendoza Consulting Unavailable Amaury, Sully Consulting Unavailable AlDimitris grider Consulting Unavailable Still, Radha Consulting Unavailable Saul, Bunny Consulting Unavailable IrukJuaquin navarro Consulting Unavailable Irvin, Americo Consulting Unavailable Dhesi, Ahsan Consulting Unavailable Doni Gonzalez Consulting Unavailable Dee Ellsworth Consulting Unavailable Manuelito Porter Consulting Unavailable Georgi Sanz Consulting Unavailable Alex Martinez Consulting Unavailable Percy Price Consulting Unavailable Maurizio Parra Consulting Unavailable Tez Tuttle Attending Unavailable Le Wiggins Consulting Unavailable Le Wiggins Attending Unavailable Oleghe OLS, Efewongbe Attending Unavailabl e Oleghe, Efewongbe Primary Care Unavailable Oleghe OLS, Efewongbe Attending Unavailabl e Oleghe, Efewongbe Primary Care Unavailable Oleghe OLS, Efewongbe Attending Unavailabl e Oleghe, Efewongbe Primary Care Unavailable Oleghe OLS, Efewongbe Attending Unavailabl e Oleghe, Efewongbe Primary Care Unavailable Oleghe OLS, Efewongbe Attending Unavailabl e Oleghe, Efewongbe Primary Care Unavailable Oleghe OLS, Efewongbe Attending Unavailabl e Oleghe, Efewongbe Primary Care Unavailable Oleghe OLS, Efewongbe Attending Unavailabl e Oleghe, Efewongbe Primary Care Unavailable Oleghe, Efewongbe Referring Unavailable Minda Garza Attending Unavailable Oleghe, Efewongbe Primary Care Unavailable Oleghe, Efewongbe Primary Care Unavailable Oleghe OLS, Efewongbe Attending Unavailabl e Oleghe OLS, Efewongbe Attending Unavailabl e Oleghe, Efewongbe Primary Care Unavailable Oleghe OLS, Efewongbe Referring Unavailabl e Oleghe, Efewongbe Referring Unavailable Oleghe, Efewongbe Primary Care Unavailable Peter Thayer Attending Unavailable Oleghe, Efewongbe Primary Care Unavailable Oleghe OLS, Efewongbe Attending Unavailabl e Oleghe, Efewongbe Primary Care Unavailable Oleghe OLS, Efewongbe Attending Unavailabl e Oleghe OLS, Efewongbe Attending Unavailabl e Oleghe, Efewongbe Primary Care Unavailable Oleghe, Efewongbe Primary Care Unavailable Oleghe OLS, Efewongbe Attending Unavailabl e Oleghe OLS, Efewongbe Attending Unavailabl e Oleghe, Efewongbe Primary Care Unavailable Oleghe OLS, Efewongbe Attending Unavailabl e Oleghe, Efewongbe Primary Care Unavailable Oleghe OLS, Efewongbe Attending Unavailabl e Oleghe, Efewongbe Primary Care Unavailable Oleghe OLS, Efewongbe Attending Unavailabl e Oleghe, Efewongbe Primary Care Unavailable Oleghe OLS, Efewongbe Attending Unavailabl e Oleghe, Efewongbe Primary Care Unavailable Oleghe OLS, Efewongbe Attending Unavailabl e Oleghe, Efewongbe Primary Care Unavailable Oleghe, Efewongbe Primary Care Unavailable Oleghe OLS, Efewongbe Attending Unavailabl e Oleghe, Efewongbe Primary Care Unavailable Oleghe OLS, Efewongbe Attending Unavailabl e Oleghe, Efewongbe Primary Care Unavailable Oleghe OLS, Efewongbe Attending Unavailabl e Oleghe, Efewongbe Primary Care Unavailable Oleghe OLS, Efewongbe Attending Unavailabl e Oleghe, Efewongbe Primary Care Unavailable Oleghe OLS, Efewongbe Attending Unavailabl e Oleghe, Efewongbe Primary Care Unavailable Oleghe OLS, Efewongbe Attending Unavailabl e Oleghe, Efewongbe Primary Care Unavailable Oleghe OLS, Efewongbe Attending Unavailabl e Oleghe, Efewongbe Primary Care Unavailable Oleghe OLS, Efewongbe Attending Unavailabl e Oleghe OLS, Efewongbe Attending Unavailabl e Oleghe, Efewongbe Primary Care Unavailable Oleghe, Efewongbe Primary Care Unavailable Oleghe OLS, Efewongbe Attending Unavailabl e Oleghe OLS, Efewongbe Referring UnavailBryant Taylor Consulting Unavailable Percy Price Admitting Unavailable Percy Price Referring Unavailable Le Wiggins Attending Unavailable Oleghe, Efewongbe Primary Care Unavailable Jen Storeyn Consulting Unavailable Cristi Gann Consulting Unavailable Tez Tuttle Consulting Unavailable Palmira Campo Consulting Unavailable Elio Soto Consulting Unavailable Titus Fletcher Consulting Unavailable Alysha Cameron Consulting Unavailab yulia Martinez, Brien Consulting Unavailable MejíaJean hampton Consulting Unavailable Paresh Mendoza Consulting Unavailable Sully Rebolledo Consulting Unavailable Dimitris Chacko Consulting Unavailable StillRadha pablo Consulting Unavailable Saul, Bunny Consulting Unavailable Juaquin York Consulting Unavailable Irvin, Americo Consulting Unavailable Dhesi, Ahsan Consulting Unavailable Doni Gonzalez Consulting Unavailable Dee Ellsworth Consulting Unavailable Manuelito Porter Consulting Unavailable Georgi Sanz Consulting Unavailable Alex Martinez Consulting Unavailable Percy Price Consulting Unavailable Maurizio Parra Consulting Unavailable Minda mC Consulting Unavailable Oleghe, Efewongbe Primary Care Unavailable Palmira Johnson Admitting Unavailable Palmira Johnson Attending Unavailable Oleghe, Efewongbe Primary Care Unavailable Oleghe OLS Efewongbe Attending Unavailabl e Oleghe, Efewongbe Primary Care Unavailable Oleghe OLS Efewongbe Attending Unavailabl e Oleghe, Efewongbe Primary Care Unavailable Oleghe OLS Efewongbe Attending Unavailabl e Oleghe, Efewongbe Primary Care Unavailable Oleghe OLS Efewongbe Attending Unavailabl myranda Beal JORDAN WORKER, Nay Referring Unavailable Nay Beal NP Attending Unavailable Oleghe, Efewongbe Primary Care Unavailable Minda Cm Consulting Unavailable Oleghe, Efewongbe Primary Care Unavailable Oleghe OLS Efewongbe Attending Unavailabl e Oleghe, Efewongbe Primary Care Unavailable Palmira Johnson Admitting Unavailable Palmira Johnson Attending Unavailable Palmira Johnson Consulting Unavailable Percy Price Attending Unavailable Oleghe, Efewongbe Primary Care Unavailable Radha Green Attending Unavailable Oleghe OLS, Efewongbe Attending Unavailabl e Oleghe, Efewongbe Primary Care Unavailable Oleghe OLS, Efewongbe Attending Unavailabl e Oleghe, Efewongbe Primary Care Unavailable Oleghe OLS, Efewongbe Attending Unavailabl e Oleghe, Efewongbe Primary Care Unavailable Oleghe, Efewongbe Primary Care Unavailable Oleghe OLS Efewongbe Attending Unavailabl e Allergies Allergy Classification Reported Allergen(s) Allergy Type Date of Onset Reaction(s) Facility (1 source) NO KNOWN ALLERGIES; Translations: [NO KNOWN ALLERGIES] Propensity to adverse reactions (disorder) [facility] (1 source) NKA; Translations: [NKA] Propensity to adverse reactions (disorder) [facility] Medications Current Medications Medication Drug Class(es) Dates Sig (Normalized) Sig (Original) acetaminophen 325 mg oral capsule (20 sources) Start: 10-12-2024 Start: 02-09-2024 Start: 10-27-2023 End: 11-04-2023 take 1 tablet by mouth every six hours as needed for pain and fever acetaminophen (Tylenol) tablet 650 mg Start: 09-13-2023 End: 02-09-2024 Start: 03-08-2023 take 2 tablets enter al route every six hours as needed acetaminophen (TYLENOL) 500 mg tablet 2 tablets by ORAL/FEEDING TUBE route every 6 hours as needed for pain or fever (specify) (mild pain). 03/08/2023 Active Comment on above: 2 tablets by ORAL/FE EDING TUBE route every 6 hours as needed for pain or fever (specify) (mild pain). acetic acid 2.5 mg/ml irrigation solution (9 sources) Start: 2024 acetylcysteine 200 mg/ml inhalation solution (16 sources) Antidote, Mucolytic, Antidote for Acetaminophen Overdose Start: 2022 take 200 mg by inhalation every six hours as needed acetylcysteine (MUCOMYST) 200 mg/mL (20 %) solution Inhale 1 mL as instructed every 6 hours as needed (secretions). 03/08/2023 Active Comment on above: Inhale 1 mL as instr ucted every 6 hours as needed (secretions). Allergy (Diphenhydramine HCl) 25 mg oral capsule (1 source) Start: 2020 Allergy (Diphenhydramine HCl) 25 mg oral capsule Dose : 25 mg = 1 cap(s), Oral, TID, PRN as needed for allergy symptoms, # 30 cap(s), 0 Refill(s) Start Date: 08/11/20 Status: Ordered Alum-Mag Hydroxide-Simeth (Mag-Al Plus Extra Strength) 400-400-40 mg/5 mL Suspension (1 source) Start: 2023 take 1 mL by mouth every six hours as needed Alum-Mag Hydroxide-Simeth (Mag-Al Plus Extra Strength) 400-400-40 mg/5 mL Suspension Active 30 ML PO EVERY 6 HOURS NEEDED September 13, 2023 12:00am Amino Acids-Protein Hydrolys (PRO-STAT) liquid (18 sources) take 30 mL by mouth twice daily Amino Acids-Protein Hydrolys (PRO-STAT) liquid Take 30 mL by mouth 2 times daily. Active amLODIPine 10 mg oral tablet (20 sources) Dihydropyridine Calcium Channel Ya Start: 2023 End: 2024 amoxicillin 875 mg / clavulanate 125 mg oral tablet (18 sources) Penicillin-class Antibacterial Start: 2024 Start: 10-12-2024 End: 10-29-2024 ampicillin 2000 mg injection (3 sources) Penicillin-class Antibacterial Start: 12-14-2022 End: 01-03-2023 ampicillin 2 g in NaCl 0.9% 100 mL Vial-Bag Inject 100 mL intravenously every 4 hours for 20 days. 31828 mL 0 12/14/2022 01/03/2023 Active Comment on above: Inject 100 mL intrav enously every 4 hours for 20 days. apixaban 5 mg oral tablet (20 sources) Factor Xa Inhibitor Start: 07-29-2023 Start: 02-09-2023 End: 11-04-2023 take 1 tablet by mouth twice daily apixaban (Eliquis) 5 MG tablet Take 1 tablet (5 mg) by mouth 2 times daily. 90 tablet 3 11/04/2023 Active Comment on above: Take 1 tablet by denny th twice daily. Arycf-Etzo-Xremq-Collag- Mv-Min (Wiliam (With Collagen)) 7-7-1.5 gram Powder In Packet (1 source) Start: 09-13-2023 Tuzbj-Uoaq-Bbiwd-Aryan ag-Mv-Min (Wiliam (With Collagen)) 7-7-1.5 gram Powder In Packet Active 1 PACKET PO TWICE DAILY WITH MEALS September 13, 2023 12:00am ascorbic acid 500 mg oral tablet (20 sources) Vitamin C Start: 03-26-2024 take 500 mg by mouth every other day Ascorbic Acid (Vitamin C) 500 MG/5ML liquid Take 500 mg by mouth every other day. Active aspirin 81 mg chewable tablet (16 sources) Platelet Aggregation Inhibitor, Nonsteroidal Anti-inflammatory Drug Start: 03-09-2023 take 1 tablet by mouth once daily aspirin 81 mg chewable tablet 1 tablet by ORAL/FEEDING TUBE route once daily. 03/09/2023 Active Comment on above: 1 tablet by ORAL/FEE DING TUBE route once daily. baclofen 10 mg oral tablet (3 sources) gamma-Aminobutyric Acid-ergic Agonist Start: 12-14-2022 End: 01-13-2023 take 1 tablet by mouth three times daily baclofen 10 mg tablet Take 1 tablet by mouth three times daily. 90 tablet 0 12/14/2022 01/13/2023 Active Comment on above: Take 1 tablet by denny th three times daily. Calcium, Magnesium and Zinc oral tablet (1 source) Start: 08-11-2020 take 1 tablet by mouth once daily Calcium, Magnesium and Zinc oral tablet Dose = 1 tab(s), Oral, qDay, # 30 tab(s), 0 Refill(s) Start Date: 08/11/20 Status: Ordered carboxymethylcellul ose sodium 5 mg/ml ophthalmic solution (20 sources) Start: 10-28-2023 End: 11-04-2023 take 1 drop(s) into the eye(s) twice daily as needed carboxymethylcellulose PF (Refresh Plus) 0.5 % ophthalmic solution Administer 1 drop into both eyes 2 times daily as needed for dry eyes. 50 each 1 11/04/2023 Active carvedilol 12.5 mg oral tablet (20 sources) alpha-Adrenergic Ya, beta-Adrenergic Ya Start: 09-13-2023 End: 05-02-2024 cefTRIAXone 2000 mg injection (3 sources) Cephalosporin Antibacterial Start: 12-14-2022 End: 01-03-2023 inject 50 mL intravenously every twelve hours cefTRIAXone (ROCEPHIN) 2 gram/50 mL in dextrose (iso-osmotic) Inject 50 mL intravenously every 12 hours for 20 days. 2000 mL 0 12/14/2022 01/03/2023 Active Comment on above: Inject 50 mL intrave nously every 12 hours for 20 days. cetirizine hydrochloride 10 mg oral tablet (20 sources) Histamine-1 Receptor Antagonist Start: 10-28-2023 End: 11-04-2024 take 1 tablet by mouth once daily cetirizine (ZyrTEC) 10 MG tablet Take 1 tablet (10 mg) by mouth daily. 90 tablet 3 11/05/2023 11/04/2024 Active chlorhexidine gluconate 40 mg/ml medicated liquid soap (12 sources) Start: 03-26-2024 chlorhexidine (Hibiclens) 4 % external solution (18 sources) chlorhexidine (Hibiclens) 4 % external solution Apply 1 Application topically Daily as needed for wound care. Active diphenhydrAMINE hydrochloride 25 mg oral capsule (20 sources) Histamine-1 Receptor Antagonist Start: 10-31-2023 End: 11-04-2023 take 1 tablet by mouth every eight hours as needed 25 mg, Oral, Every 8 hours PRN, itching, Starting on 10/31/23 at 1643 Start: 10-29-2023 take 25 mg by mouth once 25 mg , Oral, Once, On 10/29/23 at 1545, For 1 dose Start: 09-13-2023 End: 12-04-2023 Start: 09-13-2023 take 1 capsule by mo uth three times daily as needed Diphenhydramine Hcl (Banophen) 25 mg Capsule Active 25 MG PO 3 TIMES DAILY NEEDED 0 September 13, 2023 12:00am diphenhydrAMINE hydrochloride 20 mg/ml / zinc acetate 1 mg/ml topical cream (12 sources) Histamine-1 Receptor Antagonist Start: 08-12-2023 diphenhydrAMINE-Zinc Acetate (BENADRYL) cream Apply to affected area three times a day as needed for itching/rash. FOR EXTERNAL USE ONLY APPLY TO: BACK 08/12/2023 Active docusate sodium 50 mg / sennosides, custodial 8.6 mg oral tablet (20 sources) Start: 10-28-2023 End: 11-03-2024 take 2 tablets by mouth once daily senna-docusate sodium (Senokot-S) 8.6-50 MG tablet Take 2 tablets by mouth Nightly. 60 tablet 11 11/04/2023 11/03/2024 Active Start: 09-13-2023 End: 10-15-2023 Start: 09-13-2023 take 2 tablets by mo uth twice daily as needed Sennosides-Docusate Sodium (Stool Softener-Stimulant Laxat) 8.6-50 mg Tablet Active 2 TABLET PO TWICE DAILY NEEDED 0 September 13, 2023 12:00am Start: 12-14-2022 End: 01-13-2023 take 2 tablets by mouth twice daily senna-docusate (SENNA-S) 8.6-50 mg per tablet Take 2 tablets by mouth twice daily. 120 tablet 0 12/14/2022 01/13/2023 Active Comment on above: Take 2 tablets by mo [facility] twice daily. Dulaglutide (12 sources) GLP-1 Receptor Agonist Start: 5 DULoxetine 30 mg delayed release oral capsule (20 sources) Serotonin and Norepinephrine Reuptake Inhibitor Start: End: 5 ertapenem 1,000 mg in sodium chloride 0.9 % 50 mL IVPB (20 sources) Start: 4 ertapenem 1,000 mg in sodium chloride 0.9 % 50 mL IVPB Infuse 1,000 mg into a venous catheter Every 24 hours. 1 each 11/04/2023 Active fenofibrate 54 mg oral tablet (12 sources) Peroxisome Proliferator Receptor alpha Agonist Start: 5 fluticasone propionate 0.05 mg/actuat metered dose nasal spray (20 sources) Corticosteroid Start: 1 take 1 dose nasal route twice daily Flonase 50 mcg/inh nasal spray Dose = 1 spray(s), Nostril, each, BID, 0 Refill(s) Start Date: 08/11/20 Status: Ordered Start: 03-03-2020 Start: 03-03-2020 take 1 spray(s) nasa l route once daily Fluticasone Propionate (Flonase Allergy Relief) 50 mcg/actuation spray,suspension Active 1 SPRAY INTRANASAL DAILY March 03, 2020 12:00am administer into each nostril furosemide 20 mg oral tablet (20 sources) Loop Diuretic Start: 02-09-2024 End: 10-16-2024 Start: 08-13-2023 take 1 tablet by mouth once fu rosemide (LASIX) 40 mg tablet Take 1 tablet by mouth every Tuesday and Tuesday. 08/13/2023 Active Start: 08-26-2022 End: 10-25-2023 Comment on above: TAKE 1 TO 2 TABLETS BY MOUTH DAILY NEEDED FOR SWELLING Take 20 mg by mouth once daily. glipiZIDE er 2.5 mg 24 hr extended release oral tablet (15 sources) Sulfonylurea Start: 10-12-2024 Start: 10-25-2022 take 1 tablet by denny th twice daily glipiZIDE (GLUCOTROL XL) 10mg 24 hr tablet Take 10 mg by mouth twice daily. 0 10/25/2022 Suspended Start: 08-11-2020 glipiZIDE 10 m g oral tablet Dose : 10 mg = 1 tab(s), Oral, qDay, # 90 tab(s), 0 Refill(s) Start Date: 08/11/20 Status: Ordered Comment on above: Take 10 mg by mouth twice daily. glucose 0.4 mg/mg oral gel (20 sources) Start: 03-26-2024 Start: 10-27-2023 End: 11-04-2023 Start: 10-27-2023 End: 11-04-2023 glucose (Glutose ) 40 % gel oral gel Take 15 g by mouth as needed for low blood sugar. Active glycerin 2 mg/ml / hypromellose 2 mg/ml / polyethylene glycol 400 10 mg/ml ophthalmic solution (13 sources) Non-Standardized Chemical Allergen Start: 09-13-2023 Start: 09-13-2023 Peg 400-Hyprom ellose-Glycerin (Artificial Tears(Fv-Ujkq-Aaye)) 1-0.2-0.2 % Drops Active 1 DRP EACH EYE TWICE A DAY 0 September 13, 2023 12:00am 12 hr guaiFENesin 600 mg ext ended release oral tablet (20 sources) Start: 11-01-2024 Start: 11-04-2023 End: 11-03-2024 take 1 tablet by mouth twice daily guaiFENesin ER 1200 MG 12 hour tablet Take 1 tablet (1,200 mg) by mouth 2 times daily. Do not crush, chew, or split. 60 tablet 3 11/04/2023 11/03/2024 Active Start: 09-13-2023 take 1 tablet by denny th twice daily, then take 1 tablet by mouth every twelve hours Guaifenesin (Mucus Relief Er) 1,200 mg Tablet Extended Release 12hr Active 1200 MG PO TWICE A DAY 0 September 13, 2023 12:00am Start: 08-12-2023 End: 11-04-2023 take 1 tablet by mouth twice daily as needed for congestion guaiFENesin (MUCINEX) 600 mg 12 hr tablet Take 1 tablet by mouth two times a day as needed (congestion). 08/12/2023 Active Start: 07-29-2023 End: 08-31-2023 Start: 12-14-2022 End: 01-13-2023 take 1 tablet by mouth twice daily guaiFENesin (MUCINEX) 600 mg 12 hr tablet Take 1 tablet by mouth twice daily. 60 tablet 0 12/14/2022 01/13/2023 Active Comment on above: Take 1 tablet by denny th twice daily. sodium hypochlorite 2.5 mg/m l topical solution (20 sources) Start: 10-12-2024 Start: 08-12-2023 sodium hypochl orite (DAKIN'S QUARTER STRENGTH) 0.125 % soln Irrigate 1 mL as instructed two times a day. FOR EXTERNAL USE ONLY APPLY TO: Sacrum wound with the dressing change 08/12/2023 Active insulin glargine 100 unt/ml injectable solution (20 sources) Insulin Analog Start: 10-28-2023 End: 11-04-2024 inject 24 [IU] by subcutaneous injection once daily in the morning insulin glargine (Lantus) 100 UNIT/ML injection Inject 24 Units under the skin every morning. 10 mL 12 11/05/2023 11/04/2024 Active Start: 08-12-2023 inject 20 [IU] by wong bcutaneous injection once daily in the morning insulin glargine 100 unit/mL (3 mL) Inject 20 Units subcutaneously every morning. 08/12/2023 Active Start: 03-08-2023 inject 10 [IU] by wong bcutaneous injection once daily in the morning insulin glargine 100 unit/mL (3 mL) Inject 10 Units subcutaneously every morning. 0 03/08/2023 Active Start: 03-08-2023 inject 10 [IU] by wong bcutaneous injection once daily in the morning insulin glargine 100 unit/mL (3 mL) Inject 10 Units subcutaneously every morning. 0 03/08/2023 Active Start: 12-14-2022 inject 25 [IU] by wong bcutaneous injection once daily at bedtime insulin glargine 100 unit/mL (3 mL) Inject 25 Units subcutaneously daily at bedtime. 0 12/14/2022 Active Comment on above: Inject 25 Units subc utaneously daily at bedtime. Inject 10 Units subc utaneously every morning. Insulin Glargine (Insulin Glargine 100 Unit/Ml Subcutaneous Solution) 100 unit/mL solution (2 sources) Start: 07-29-2023 Insulin Glargine (Insulin Glargine 100 Unit/Ml Subcutaneous Solution) 100 unit/mL solution Active 20 UNIT SC DAILY July 29, 2023 12:00am Insulin Glargine (Lantus U-100 Insulin) 100 unit/mL solution (1 source) Start: 07-29-2023 Insulin Glargine (Lantus U-100 Insulin) 100 unit/mL solution Active 20 UNIT SC DAILY July 29, 2023 12:00am 3 ml insulin lispro 100 unt/ml pen injector (20 sources) Insulin Analog Start: 09-13-2023 End: 10-23-2023 Start: 09-13-2023 Insulin Lispro (Humalog Kwikpen Insulin) 100 unit/mL Insulin Pen Active 0 UNIT SC BEFORE MEALS AND AT BEDTIME 0 September 13, 2023 12:00am Start: 07-29-2023 Insulin Lispro Active 8 UNIT SC THREE TIMES A DAY July 29, 2023 12:00am Start: 03-08-2023 End: 07-18-2024 Insulin Lispro ( Humalog) 100 UNIT/ML solution injection Indications: Type 2 Diabetes Mellitus Inject under the skin 3 times daily (with meals). Active Comment on above: Inject 0-5 Units sub cutaneously with meals and at bedtime. Scale 1 If Blood Glucose (mg/dL) is: Less than 110 Give 0 units 111-150 Give 0 units 151-200 Give 1 unit 201-250 Give 2 units 251-300 Give 3 units 301-350 Give 4 units 351-400 Give 5 units Greater than 400 Give 5 units and Notify Provider Notify provider if 2 consecutive blood glucose values in the previous 24 hours are greater than 250 mg/dL and there have been no changes to the insulin regimen in the previous 24 hours. iron polysaccharides (Nu-Iron,Niferex) 150 MG capsule (18 sources) take 1 capsule by mouth once daily iron polysaccharides (Nu-Iron,Niferex) 150 MG capsule Take 150 mg by mouth daily. Active isopropyl alcohol 0.7 ml/ml medicated pad (12 sources) Start: alcohol swabs Apply 1 application to affected area four times daily. 100 Each 1 06/17/2023 Active levoFLOXacin 750 mg oral tablet (3 sources) Quinolone Antimicrobial Start: loratadine 10 mg oral tablet (20 sources) Start: menthol 100 mg/ml / methyl salicylate 300 mg/ml topical cream (16 sources) Start: methyl salicylate 30% - menthol 10% (ICY HOT) 30-10 % cream Apply to affected area three times a day as needed (upper back back). 03/08/2023 Active Comment on above: Apply to affected ar ea three times a day as needed (upper back back). metFORMIN hydrochloride 500 mg oral tablet (20 sources) Biguanide Start: End: Start: 02-09-2024 End: 03-14-2024 Methocarbamol (20 sources) Muscle Relaxant Start: 11-04-2023 take 1 tablet by mouth every eight hours as needed methocarbamol 1000 MG tablet Take 1,000 mg by mouth every 8 hours as needed for muscle spasms for up to 10 days. 11/04/2023 Active Start: 11-04-2023 End: 11-14-2023 take 1 tablet by mouth every eight hours as needed methocarbamol 1000 MG tablet Take 1,000 mg by mouth every 8 hours as needed for muscle spasms for up to 10 days. 11/04/2023 11/14/2023 Active Start: 07-29-2023 End: 11-04-2023 Start: 07-29-2023 take 1000 mg by mout h three times daily Methocarbamol Active 1000 MG PO THREE TIMES A DAY July 29, 2023 12:00am Start: 03-08-2023 take 1 tablet by denny th every eight hours as needed Methocarbamol 1000 MG tablet Take 1,000 mg by mouth every 8 hours as needed. 03/08/2023 Active Start: 03-08-2023 take 1 tablet by denny th every eight hours as needed methocarbamol 1,000 mg tablet Take 1 tablet by mouth three times a day as needed (muscle spasms). 03/08/2023 Active Start: 03-08-2023 take 1 tablet by denny th every eight hours as needed methocarbamol 1,000 mg tablet Take 1 tablet by mouth three times a day as needed (muscle spasms). 0 03/08/2023 Active Comment on above: Take 1 tablet by denny th three times a day as needed (muscle spasms). miconazole nitrate 0.02 mg/mg topical powder (16 sources) Azole Antifungal Start: 03-08-2023 miconazole 2 % powder Apply 1 application to affected area two times a day. 03/08/2023 Active Comment on above: Apply 1 application to affected area two times a day. Miscellaneous Medical Supply (17 sources) Start: 02-25-2023 Miscellaneous Medical Supply 1 Each once daily. Kelli Lift 1 Each 02/25/2023 Active Start: 02-25-2023 Miscellaneous Medical Supply 1 Each once daily. Kelli Lift 1 Each 0 02/25/2023 Active Start: 02-16-2023 Miscellaneous Medical Supply 1 Each once daily. Kelli Lift 1 Each 0 02/16/2023 Active Comment on above: 1 Each once daily. H oyer Lift morphine sulfate 30 mg exten ded release oral capsule (20 sources) Opioid Agonist Start: 10-10-2024 End: 11-07-2024 Start: 10-09-2024 End: 10-10-2024 Start: 09-05-2024 End: 10-05-2024 Start: 08-08-2024 End: 08-17-2024 Start: 11-04-2023 End: 11-04-2023 take 1 dose by mouth every hour as needed 4 mg, IntraVENous, Once PRN, moderate pain (4-6), For transport to outside care facility, Starting on Tue11/04/23 at 1459, For 1 dose, If oral and IV narcotics ordered, use oral first and only use IV if oral is ineffective or cannot take oral. Do Not give oral and IV within 1 hour of each other unless specifically ordered. Start: 10-31-2023 End: 11-04-2023 take 1 dose by mouth twice daily 30 mg, Oral, Every 12 hours scheduled (2 times per day), First dose on Tue10/31/23 at 2100, Do not crush, chew, or split. Start: 10-28-2023 End: 10-31-2023 take 30 mg by mouth twice daily 30 mg, Oral, 2 times d aily, First dose on Tue10/28/23 at 0900 Start: 08-12-2023 take 1 tablet by denny every twelve hours morphine SR (MS CONTIN) 15 mg 12 hr tablet Take 1 tablet by mouth every 12 hours for 7 days. 0 08/12/2023 Active Start: 07-29-2023 End: 08-08-2024 take 1 capsule by mo [facility] in the morning, then take 1 capsule by mouth every twenty-four hours in the evening morphine CP24 (AVINza) 30 MG 24 hr capsule Take 30 mg by mouth in the morning and 30 mg in the evening. Do not crush or chew.. Active 1 ml naloxone hydrochloride 0.4 mg/ml cartridge (20 sources) Opioid Antagonist Start: 03-22-2024 End: 03-26-2024 Start: 11-04-2023 naloxone (Narc an) 0.4 MG/ML injection Infuse 1 mL (0.4 mg) into a venous catheter every 5 minutes as needed for opioid reversal or respiratory depression. 11/04/2023 Active Start: 10-27-2023 End: 11-04-2023 0.4 mg, IntraVENous, Every 5 min PRN, opioid reversal, respiratory depression, Starting on Cora 10/27/23 at 2348, +++ For RR Start: 03-08-2023 naloxone (Narc an) 4 mg/0.1 mL nasal spray Administer 1 spray into affected nostril(s) if needed. 03/08/2023 Active Start: 03-08-2023 naloxone 4 mg/ actuation nasal spray (NARCAN) Use 1 spray in one nostril as needed for overdose. May repeat every 2 to 3 min in alternating nostrils until medical assistance is available 0 03/08/2023 Active Start: 12-02-2022 naloxone 4 mg/ actuation nasal spray (NARCAN) Use 1 spray in one nostril as needed for overdose. May repeat every 2 to 3 min in alternating nostrils until medical assistance is available 1 Each 0 12/02/2022 Suspended Comment on above: Use 1 spray in one n ostril as needed for overdose. May repeat every 2 to 3 min in alternating nostrils until medical assistance is available naloxone 4 mg/actuation nasal spray (NARCAN) (10 sources) Start: 3 naloxone 4 mg/actuation nasal spray (NARCAN) Use 1 spray in one nostril as needed for overdose. May repeat every 2 to 3 min in alternating nostrils until medical assistance is available 0 03/08/2023 Active Nutritional Supplements (Wiliam) powder (18 sources) take 1 dose by mouth twice daily Nutritional Supplements (Wiliam) powder Take 1 packet by mouth 2 times daily. Active nystatin 100 unt/mg topical powder (12 sources) Polyene Antifungal Start: 5 ondansetron 4 mg disintegrating oral tablet (20 sources) Serotonin-3 Receptor Antagonist Start: End: Start: 03-08-2023 take 4 mg intravenou sly every six hours as needed ondansetron, PF, (ZOFRAN) 4 mg/2 mL soln Inject 4 mg intravenously every 6 hours as needed for nausea/vomiting. 03/08/2023 Active Comment on above: Inject 4 mg intraven ously every 6 hours as needed for nausea/vomiting. 2 ml orphenadrine citrate 30 mg/ml injection (16 sources) Muscle Relaxant Start: 2022 inject 1 mL intravenously every twelve hours orphenadrine (NORFLEX) 30 mg/mL injection Inject 1 mL intravenously every 12 hours. 03/09/2023 Active Comment on above: Inject 1 mL intraven ously every 12 hours. oxyCODONE hydrochloride 10 mg oral tablet (20 sources) Opioid Agonist Start: 2024 Start: 11-02-2024 End: 11-07-2024 Start: 09-26-2024 End: 11-02-2024 Start: 06-29-2024 End: 09-23-2024 Start: 10-27-2023 End: 11-04-2023 take 1 tablet by mouth every six hours as needed for pain and pain 10 mg, Oral, Every 6 hours PRN, moderate pain (4-6), severe pain (7-10), Starting on [facility] 10/27/23 at 2348 Start: 10-25-2023 End: 03-22-2024 Start: 07-29-2023 End: 06-28-2024 Start: 03-08-2023 take 5-10 mg enteral route every three hours as needed oxyCODONE IR (ROXICODONE) 5 mg immediate release tablet 1-2 tablets by ORAL/FEEDING TUBE route every 3 hours as needed (Moderate Pain (4-6) - Enteral, Severe Pain (>/=7) - Enteral). 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 15 tablet 11/04/2023 11/09/2023 Active Start: 03-13-2017 take 1 tablet by denny th every three hours as needed oxyCODONE IR (ROXICODONE) 15 mg immediate release tablet Take 15 mg by mouth every 3 hours as needed. 90 tablet 0 03/13/2017 Suspended take 2 capsules by m out every six hours as needed for pain oxyCODONE (Oxy-IR) 5 MG immediate release capsule Take 10 mg by mouth every 6 hours as needed for severe pain (7-10). Active Comment on above: Take 15 mg by mouth every 3 hours as needed. 1-2 tablets by ORAL/ FEEDING TUBE route every 3 hours as needed (Moderate Pain (4-6) - Enteral, Severe Pain (>/=7) - Enteral). 5 mg for moderate pain (4-6) 10 mg for severe pain (>/=7) polyethylene glycol 3350 170 00 mg powder for oral solution (20 sources) Osmotic Laxative Start: 03-09-2023 End: 03-27-2024 Start: 03-09-2023 polyethylene g lycol 3350 17 gram packet 1 Packet by ORAL/FEEDING TUBE route once daily. Dissolve dose in 4 - 8 ounces of liquid and take as directed. 03/09/2023 Active Start: 12-15-2022 End: 01-14-2023 polyethylene glycol 3350 17 gram packet Take 1 Packet by mouth once daily. Dissolve dose in 4 - 8 ounces of liquid and take as directed. 30 Packet 0 12/15/2022 01/14/2023 Active Comment on above: Take 1 Packet by denny th once daily. Dissolve dose in 4 - 8 ounces of liquid and take as directed. 1 Packet by ORAL/FEE DING TUBE route once daily. Dissolve dose in 4 - 8 ounces of liquid and take as directed. rivaroxaban 20 mg oral tablet (16 sources) Factor Xa Inhibitor Start: 03-18-20 take 1 tablet by mouth once daily at dinner rivaroxaban (XARELTO) 20 mg tablet Take 1 tablet by mouth daily with dinner. 03/18/2023 Active Comment on above: Take 1 tablet by denny th daily with dinner. 0.25 mg, 0.5 mg dose 1.5 ml semaglutide 1.34 mg/ml pen injector (17 sources) Start: 02-16-20 End: 03-15-20 inject 0.25 mg by subcutaneous injection every week semaglutide (Ozempic) 2 MG/1.5ML solution pen-injector Inject 0.25 mg under the skin 1 (one) time per week. 02/16/2024 Active Start: 08-11-2020 Ozempic (1 mg dose) 2 mg/1.5 mL subcutaneous solution Dose : 1 mg =, Subcutaneous, qWeek, # 3 mL, 0 Refill(s) Start Date: 08/11/20 Status: Ordered sennosides, custodial 8.6 mg oral tablet (16 sources) Start: 03-08-2023 take 1 tablet by mouth twice daily senna (SENOKOT) 8.6 mg tab Take 1 tablet by mouth two times a day. 03/08/2023 Active Comment on above: Take 1 tablet by denny th two times a day. simethicone 80 mg chewable tablet (20 sources) Start: 10-12-2024 take 1 tablet by denny th every six hours as needed simethicone (Mylicon) 80 MG chewable tab let Chew 80 mg every 6 hours as needed for flatulence. Active Yancey's Wort 300 mg oral capsule (1 source) Start: 08-11-2020 Mary's Wor t 300 mg oral capsule 0 Refill(s) Start Date: 08/11/20 Status: Ordered triamcinolone acetonide 1 mg/ml topical cream (20 sources) Corticosteroid Start: 03-08-2023 triamcinolone acetonide (KENALOG) 0.1 % cream Apply to affected area three times a day as needed. 03/08/2023 Active Start: 11-04-2022 triamcinolone acetonide (KENALOG) 0.1 % cream APPLY TO THE AFFECTED AREA(S) THREE TIMES DAILY NEEDED 0 11/04/2022 Suspended Comment on above: APPLY TO THE AFFECTE D AREA(S) THREE TIMES DAILY NEEDED Apply to affected ar ea three times a day as needed. Vitamin B Complex oral capsule (1 source) Start: 08-11-2020 take 1 capsule by mouth once daily Vitamin B Complex oral capsule Dose = 1 cap(s), Oral, Daily, 0 Refill(s) Start Date: 08/11/20 Status: Ordered Vitamin C 100 mg oral tablet, chewable (1 source) Start: 08-11-2020 Vitamin C 100 mg oral tablet, chewable Dose : 100 mg = 1 tab(s), Chewed, qDay, # 90 tab(s), 0 Refill(s) Start Date: 08/11/20 Status: Ordered Vitamin D with Minerals oral tablet, chewable (1 source) Start: 08-11-2020 take 1 tablet by mouth once daily Vitamin D with Minerals oral tablet, chewable Dose = 1 tab(s), Chewed, qDay, # 30 tab(s), 0 Refill(s) Start Date: 08/11/20 Status: Ordered zinc gluconate 30 mg oral tablet (1 source) Start: 08-11-2020 zinc (as gluconate) 30 mg oral tablet Dose : 30 mg = 1 tab(s), Oral, qDay, # 100 tab(s), 0 Refill(s) Start Date: 08/11/20 Status: Ordered zolpidem tartrate 5 mg oral tablet (3 sources) gamma-Aminobutyric Acid-ergic Agonist Start: 12-14-2022 End: 01-13-2023 take 1 tablet by mouth every twenty-four hours as needed zolpidem (AMBIEN) 5 mg tablet Take 1 tablet by mouth at bedtime as needed for up to 30 days. 0 12/14/2022 01/13/2023 Active Comment on above: Take 1 tablet by denny th at bedtime as needed for up to 30 days. (20 sources) Start: 10-12-2024 Start: 07-18-2024 Start: 03-26-2024 Start: 03-22-2024 Start: 10-25-2023 End: 03-26-2024 Start: 10-25-2023 End: 03-14-2024 Start: 10-15-2023 End: 10-25-2023 Start: 09-13-2023 Start: 09-13-2023 End: 03-14-2024 Start: 09-13-2023 End: 10-15-2023 Start: 07-29-2023 End: 07-18-2024 Start: 03-03-2020 End: 07-29-2023 Start: 03-03-2020 End: 07-29-2023 Completed/Discontinued Medications Medication Drug Class(es) Dates Sig (Normalized) Sig (Original) acetaminophen 325 mg / oxyCODONE hydrochloride 10 mg oral tablet (20 sources) Opioid Agonist Start: 10-28-2022 take 1 tablet by mouth every four hours as needed for pain oxyCODONE-acetami nophen (PERCOCET 10) 10-325 mg tablet TAKE 1 TABLET BY MOUTH EVERY 4 HOURS NEEDED for severe pain 0 10/28/2022 Suspended Start: 08-11-2020 take 1 tablet by denny th every six hours as needed for pain Percocet 7.5 mg-325 mg oral tablet Dose = 1 tab(s), Oral, q6h, PRN for pain, # 12 tab(s), 0 Refill(s) Start Date: 08/11/20 Status: Ordered Start: 03-03-2020 End: 07-29-2023 Start: 03-03-2020 End: 07-29-2023 Oxycodone-Acetaminophen Disc ontinued 1 EACH PO Q4H March 03, 2020 12:00am July 29, 2023 6:24pm Comment on above: TAKE 1 TABLET BY DENNY TH EVERY 4 HOURS NEEDED for severe pain albuterol 0.83 mg/ml inhalat ion solution (20 sources) beta2-Adrenergic Agonist Start: 10-27-2023 End: 11-04-2023 Start: 10-25-2023 Start: 10-15-2023 End: 10-25-2023 Start: 03-08-2023 take 2.5 mg by inhal ation every six hours as needed albuterol (PROVENTIL) 2.5 mg /3 mL (0.083 %) nebulizer solution Use 3 mL via nebulizer every 6 hours as needed for wheezing/shortness of breath. 03/08/2023 Active Start: 12-14-2022 End: 01-13-2023 take 3 mL by inhalation twice daily albuterol (PROVENTIL) 2.5 mg /3 mL (0.083 %) nebulizer solution Use 3 mL via nebulizer twice daily. Inhale by nebulizer over 5-15 minutes 180 mL 0 12/14/2022 Suspended albuterol (2.5 M G/3ML) 0.083% nebulizer solution Take 3 mL by nebulization every 4 hours as needed for wheezing or shortness of breath. Active Comment on above: Use 3 mL via nebuliz er twice daily. Inhale by nebulizer over 5-15 minutes Use 3 mL via nebuliz er every 6 hours as needed for wheezing/shortness of breath. amoxicillin 500 mg oral capsule (1 source) Penicillin-class Antibacterial Start: 01-04-20 take 1 capsule by mouth three times daily amoxicillin (AMOXIL) 500 mg capsule Take 1 capsule by mouth three times daily. FOR 10 DAYS. 126 capsule 0 01/03/2023 Active Comment on above: Take 1 capsule by mo [facility] three times daily. FOR 10 DAYS. azithromycin 250 mg oral tablet (9 sources) Macrolide Antimicrobial Start: 10-13-19 End: 10-30-19 B-Complex With Vitamin C (7 sources) Start: 03-03-20 End: 07-29-19 24 take 1 tablet by mouth once daily B-Complex With Vitamin C Discontinued 1 TABLET PO DAILY March 03, 2020 12:00am July 29, 2023 6:23pm Start: 03-03-2020 [facility] B-[facility] With Vitamin C Active 1 TABLET PO DAILY March 02, 2020 11:00pm Start: 03-03-2020 take 1 tablet by denny th once daily B-Complex With Vitamin C Active 1 TABLET PO DAILY March 03, 2020 12:00am benzonatate 100 mg oral caps ule (14 sources) Non-narcotic Antitussive Start: 09-13-2023 End: 03-26-2024 Start: 04-22-2016 benzonatate (T ESSALON PERLE) 100 mg capsule calcium ascorbate 500 mg ora l tablet (19 sources) Start: 03-03-2020 End: 07-29-2023 calcium carbonate 1250 mg or al tablet (19 sources) Start: 03-03-2020 End: 07-29-2023 cefdinir 300 mg oral capsule (20 sources) Cephalosporin Antibacterial Start: 09-07-2024 End: 10-16-2024 Start: 01-29-2024 End: 02-08-2024 take 1 capsule by mouth twice daily cefdinir (Omnicef) 300 MG capsule Take 300 mg by mouth 2 times daily. 01/29/2024 02/08/2024 Start: 09-13-2023 End: 10-23-2023 Start: 09-13-2023 take 300 mg by mouth every twelve hours Cefdinir Active 300 MG PO EVERY 12 HOURS 0 September 13, 2023 12:00am cephalexin 500 mg oral capsule (6 sources) Cephalosporin Antibacterial Start: 02-16-2024 End: 02-20-2024 cephalexin (Keflex) 500 MG capsule Take 500 mg by mouth in the morning and 500 mg at noon and 500 mg in the evening and 500 mg before bedtime. 02/16/2024 02/20/2024 cholecalciferol 0.05 mg oral capsule (19 sources) Vitamin D Start: 03-03-2020 End: 07-29-2023 cholecalciferol 9.52 unt/ml / glucose 357 mg/ml oral gel (2 sources) Vitamin D Start: 10-27-2023 End: 11-04-2023 ciprofloxacin 500 mg oral tablet (1 source) Quinolone Antimicrobial Start: 02-20-2024 End: 02-27-2024 take 1 tablet by mouth every twelve hours ciprofloxacin (Cipro) 500 MG tablet Take 500 mg by mouth in the morning and 500 mg in the evening. 02/20/2024 02/27/2024 cyclobenzaprine hydrochloride 10 mg oral tablet (2 sources) Muscle Relaxant Start: 02-18-2017 cyclobenzaprine (FLEXERIL) 10 mg tablet Indications: Spondylolisthesis, lumbar region Take 1 tab tablet three times a day as needed for Spasms 30 tablet 0 02/18/2017 Suspended Start: 10-14-2016 take 5 mg by mouth e very eight hours as needed cyclobenzaprine (FLEXERIL) 10 mg tablet Take 0.5 tablets by mouth three times daily as needed for Muscle Spasm. 30 tablet 0 10/14/2016 Suspended Comment on above: Take 0.5 tablets by mouth three times daily as needed for Muscle Spasm. Take 1 tab tablet th ree times a day as needed for Spasms diclofenac sodium 0.01 mg/mg topical gel (20 sources) Nonsteroidal Anti-inflammatory Drug Start: 3 apply 2 g topically four times daily diclofenac (VOLTAREN) 1 % topical gel APPLY 2 GRAMS TO AFFECTED AREA(S) TOPICALLY 4 TIMES DAILY 0 11/04/2022 Suspended Start: 03-03-2020 End: 07-30-2023 Start: 03-03-2020 take 50 mg by mouth twice alexandria y Diclofenac Sodium Active 50 MG PO TWICE A DAY March 02, 2020 11:00pm Start: 03-12-2017 take 1 tablet by denny twice daily diclofenac potassium (CATAFLAM) 50 mg tablet Take 50 mg by mouth twice daily. 0 03/12/2017 Suspended Comment on above: Take 50 mg by mouth twice daily. APPLY 2 GRAMS TO AFF ECTED AREA(S) TOPICALLY 4 TIMES DAILY docusate sodium 100 mg oral capsule (15 sources) Start: 07-29-2023 End: 03-26-2024 doxycycline hyclate 100 mg delayed release oral tablet (2 sources) Tetracycline-class Drug Start: 01-29-2024 End: 02-08-2024 take 1 tablet by mouth twice daily doxycycline (Doryx) 100 MG EC tablet Take 100 mg by mouth 2 times daily. Do not crush or chew. Take with a full glass of water and do not lie down for at least 30 minutes after. 01/29/2024 02/08/2024 Start: 02-07-2017 take 1 capsule by mo [facility] twice daily doxycycline monohydrate (MONODOX) 100 mg capsule Take 1 capsule by mouth twice daily. 60 capsule 0 02/07/2017 Suspended Comment on above: Take [address] [facility] twice daily. ertapenem (INVanz) 1,000 mg in sodium chloride 0.9 % 50 mL IVPB Mini-Bag Plus (2 sources) Start: 10-28-2023 End: 11-04-2023 1,000 mg, IntraVENous, at 100 mL/hr, Administer over 30 Minutes, Every 24 hours, First dose on Tue10/28/23 at 1615, Mini-Bag Plus bag, Suspected Indication (Select all that apply): Urinary Tract Infection, Pneumonia (HAP) esomeprazole 40 mg delayed release oral capsule (5 sources) Proton Pump Inhibitor Start: 10-25-2022 esomeprazole (NEXIUM) 40 mg capsule TAKE 1 CAPSULE BY MOUTH TWICE DAILY FOR 14 DAYS, then return to ONCE DAILY 0 10/25/2022 Suspended Comment on above: TAKE 1 CAPSULE BY [facility] TWICE DAILY FOR 14 DAYS, then return to ONCE DAILY fluconazole 200 mg oral tablet (15 sources) Azole Antifungal Start: 07-29-2023 End: 08-31-2023 gabapentin 100 mg oral capsule (20 sources) Anti-epileptic Agent Start: 07-29-2023 End: 03-14-2024 Start: 07-29-2023 End: 07-01-2024 take 1 capsule by mouth twice daily gabapentin (Neurontin) 100 MG capsule Take 1 capsule (100 mg) by mouth 2 times daily. 120 capsule 3 11/04/2023 Active Start: 07-29-2023 take 100 mg by mouth three times daily Gabapentin Active 100 MG PO THREE TIMES A DAY July 29, 2023 12:00am Start: 03-08-2023 End: 06-06-2023 take 1 capsule by mouth every eight hours gabapentin (NEURONTIN) 300 mg capsule Take 1 capsule by mouth every 8 hours for 90 days. 90 capsule 2 03/08/2023 Active Comment on above: Take [address] [facility] every 8 hours for 90 days. gadobutrol (Gadavist) injection 10 mL (2 sources) Start: End: take 10 mL intravenously once as needed 10 mL, IntraVENous, IMG once PRN, contrast, Starting on Tue05/17/24 at 1012, For 1 dose glucagon (rdna) 1 mg injection (2 sources) Antihypoglycemic Agent Start: End: heparin sodium, porcine 100 unt/ml injectable solution (4 sources) Unfractionated Heparin, Anti-coagulant Start: End: take 250 [IU] intraluminal route every twelve hours 250 Units, IntraCATHeter, Every 12 hours, First dose on Tue10/31/23 at 1715, Each lumen. Do NOT administer to lumens with continuous fluids currently infusing. Line Care. Use 10 mL or larger syringe. Start: 10-31-2023 End: 11-04-2023 250 Units, IntraCATHeter, AK N, line care, after blood draws and after infusion, Starting on Tue10/31/23 at 1707, Do NOT administer to lumens with continuous fluids currently infusing. Line Care. Use 10 mL or larger syringe. hydroCHLOROthiazide 12.5 mg / lisinopril 20 mg oral tablet (1 source) Thiazide Diuretic, Angiotensin Converting Enzyme Inhibitor Start: 05-15-2016 lisinopril-hydrochlorothiazi de (PRINZIDE,ZESTORETIC) 20-12.5 mg per tablet hydroCHLOROthiazide 25 mg / olmesartan medoxomil 40 mg oral tablet (20 sources) Thiazide Diuretic, Angiotensin 2 Receptor Ya Start: 09-28-2022 take 0.5 tablet by mouth once daily olmesartan-hydroCHLOROthiazide (BENICAR HCT) 40-25 mg per tablet Take 0.5 tablets by mouth once daily. 0 09/28/2022 Suspended Start: 08-11-2020 take 1 tablet by denny once daily hydrochlorothiazide-olmesartan 12.5 mg-4 0 mg oral tablet Dose = 1 tab(s), Oral, qDay, # 30 tab(s), 0 Refill(s) Start Date: 08/11/20 Status: Ordered Start: 03-03-2020 End: 07-29-2023 Start: 03-03-2020 End: 07-29-2023 Olmesartan-Hydrochlorothiazi de Discontinued 1 EACH PO DAILY March 03, 2020 12:00am July 29, 2023 6:24pm Comment on above: Take 0.5 tablets by mouth once daily. HYDROmorphone (4 sources) Opioid Agonist hydromorphone HC l (DILAUDID INJECTION) by INJECTION(UNSPECIFIED PARENTERAL ROUTES) route. 0 Active Comment on above: by INJECTION(UNSPECI FIED PARENTERAL ROUTES) route. Insulin Lispro (Humalog) injection 0-6 Units (2 sources) Start: 10-28-19 End: 11-04-19 Insulin Lispro (Humalog) injection 0-6 Units iron sucrose (Venofer) 200 mg in sodium chloride 0.9 % 100 mL IVPB (2 sources) Start: 11-03-19 End: 11-04-19 200 mg, IntraVENous, at 300 mL/hr, Administer over 20 Minutes, Every 24 hours, First dose on Cor[place] 11/03/23 at 1600, For 3 doses, Observe for signs and symptoms of hypersensitivity and/or anaphylactic-type reactions per institutional standard during and following administration. Lactobacillus acidophilus (5 sources) take 1 capsule by mouth once daily Lactobacillus acidophilus (PROBIOTIC ORAL) Take 1 capsule by mouth once daily. Balance of Nature brand 0 Active take 1 capsule by mouth once rupinder ly Lactobacillus acidophilus (PROBIOTIC ORAL) Take 1 capsule by mouth once daily. Balance of Nature brand 0 Suspended Comment on above: Take [address] [facility] once daily. Balance of Nature brand levocetirizine dihydrochlori de 5 mg oral tablet (19 sources) Histamine-1 Receptor Antagonist Start: 03-03-2020 End: 07-29-2023 linezolid 600 mg oral tablet (15 sources) Oxazolidinone Antibacterial Start: 07-29-2023 End: 08-31-2023 LORazepam 1 mg oral tablet (20 sources) Benzodiazepine Start: 08-17-2024 End: 11-01-2024 melatonin 3 mg oral capsule (20 sources) Start: 03-22-2024 End: 07-18-2024 Start: 09-13-2023 End: 03-14-2024 Start: 09-13-2023 End: 03-14-2024 take 2 tablets by mouth once daily melatonin 3 MG tablet Take 2 tablets (6 mg) by mouth Nightly. 11/04/2023 Active Start: 09-13-2023 take 3 mg by mouth a t bedtime as needed Melatonin Active 3 MG PO AT BEDTIME NEEDED 0 September 13, 2023 12:00am meropenem (Merrem) 2,000 mg in sodium chloride 0.9 % 100 mL IVPB (2 sources) Start: 10-27-2023 End: 10-28-2023 take 2000 mg intravenously every eight hours 2,000 mg, IntraVENous, at 33.3 mL/hr, Administer over 3 Hours, Every 8 hours, First dose on [facility] 10/27/23 at 2345, Dosage or interval has been adjusted per P&T Renal Dosing policy. Mini-Bag Plus bag, Suspected Indication (Select all that apply): Pneumonia (CAP) metoclopramide 5 mg oral tablet (15 sources) Dopamine-2 Receptor Antagonist Start: 07-29-2023 End: 07-29-2023 metroNIDAZOLE 500 mg oral tablet (12 sources) Nitroimidazole Antimicrobial Start: 09-07-2024 End: 10-16-2024 mupirocin 0.02 mg/mg topical ointment (1 source) RNA Synthetase Inhibitor Antibacterial Start: 02-21-2024 End: 02-27-2024 mupirocin (Bactroban) 2 % ointment Apply 1 Application topically 2 times daily. 02/21/2024 02/27/2024 nitrofurantoin, macrocrystals 25 mg / nitrofurantoin, monohydrate 75 mg oral capsule (12 sources) Nitrofuran Antibacterial Start: 10-23-2023 End: 10-25-2023 Nutritional Supplements (Boost Glucose Control) liquid (1 source) Start: 11-07-2023 End: 02-14-2024 Nutritional Supplements (Boost Glucose Control) liquid Take 120 mL by mouth in the morning and 120 mL at noon and 120 mL in the evening. Take with meals. 11/07/2023 02/14/2024 ondansetron ODT (Zofran-ODT) disintegrating tablet 4 mg (2 sources) Start: 10-27-2023 End: 11-04-2023 take 1 tablet by mouth every eight hours as needed for nausea and vomiting ondansetron ODT (Zofran-ODT) disintegrating tablet 4 mg OZEMPIC 0.25 mg or 0.5 mg (2 mg/3 mL) pen (5 sources) Start: 10-20-2022 inject 0.5 mg by subcutaneous injection every week OZEMPIC 0.25 mg or 0.5 mg (2 mg/3 mL) pen inject 0.5 mg subcutaneously weekly 0 10/20/2022 Active Start: 10-20-2022 inject 0.5 mg by sub cutaneous injection every week OZEMPIC 0.25 mg or 0.5 mg (2 mg/3 mL) pen inject 0.5 mg subcutaneously weekly 0 10/20/2022 Suspended Comment on above: inject 0.5 mg subcut aneously weekly pantoprazole 40 mg delayed release oral tablet (20 sources) Proton Pump Inhibitor Start: 03-09-20 End: 11-05-19 Comment on above: Take 1 tablet by denny daily at 6 am. polysaccharide iron complex 150 mg oral capsule (20 sources) Start: 09-13-19 End: 03-22-20 pramipexole dihydrochloride 1 mg oral tablet (4 sources) Nonergot Dopamine Agonist Start: 10-29-19 take 1 tablet by mouth once daily at bedtime pramipexole (MIRAPEX) 1 mg tablet Take 1 mg by mouth daily at bedtime. 0 10/28/2022 Active Comment on above: Take 1 mg by mouth d aily at bedtime. predniSONE 20 mg oral tablet (1 source) Start: 11-12-19 predniSONE (DELTASONE) 20 mg tablet TAKE 3 TABLETS FOR 3 DAYS, TAKE 2 TABLETS FOR 3 DAYS, TAKE 1 TABLET FOR 3 DAYS, TAKE 1/2 (ONE-HALF) OF A TABLET FOR 4 DAYS 0 11/11/2022 Suspended Comment on above: TAKE 3 TABLETS FOR 3 DAYS, TAKE 2 TABLETS FOR 3 DAYS, TAKE 1 TABLET FOR 3 DAYS, TAKE 1/2 (ONE-HALF) OF A TABLET FOR 4 DAYS primidone 50 mg oral tablet (4 sources) Anti-epileptic Agent Start: 12-15-19 take 1 tablet by mouth every eight hours primidone (MYSOLINE) 50 mg tablet Take 1 tablet by mouth every 8 hours. 0 12/14/2022 Suspended Comment on above: Take 1 tablet by denny every 8 hours. propranolol hydrochloride 10 mg oral tablet (20 sources) beta-Adrenergic Ya Start: 05-15-20 16 End: 07-29-19 Semaglutide (15 sources) Start: 07-29-19 End: 08-31-19 Start: 07-29-2023 End: 08-31-2023 Semaglutide (Ozempic) 1 mg/d ose (4 mg/3 mL) pen injector Discontinued 1 MG SC MO July 29, 2023 12:00am August 31, 2023 11:22am Start: 07-29-2023 Semaglutide (O zempic) 1 mg/dose (4 mg/3 mL) pen injector Active 1 MG SC MO July 29, 2023 12:00am Semaglutide (12 sources) Start: 03-22-2024 End: 07-18-2024 silver sulfADIAZINE 10 mg/ml topical cream (5 sources) Sulfonamide Antibacterial Start: 11-04-2022 silver sulfADIAZINE (SILVADENE) 1 % cream APPLY TO THE AFFECTED AREA(S) TWICE DAILY FOR 10 DAYS 0 11/04/2022 Suspended Comment on above: APPLY TO THE AFFECTE D AREA(S) TWICE DAILY FOR 10 DAYS 5 ml sodium chloride 9 mg/ml injection (20 sources) Start: 10-31-2023 End: 11-04-2023 take 10 mL intraluminal route every twelve hours 10 mL, IntraCATHeter, Every 12 hours, First dose on Tue10/31/23 at 1715, Administer to each lumen, regardless of whether or not fluids are infusing. Line Care. Use 10 mL or larger syringe. Start: 10-31-2023 End: 11-04-2023 10 mL, IntraCATHeter, PRN, l ine care, before blood draws, before and after infusion or medication administration, Starting on Tue10/31/23 at 1707, Use 10 mL or larger syringe. Start: 10-31-2023 End: 11-02-2023 4 mL, Nebulization, 2 times daily, First dose on Tue10/31/23 at 1100, For 3 days Start: 10-27-2023 End: 11-04-2023 take 5-40 mL intravenously every twelve hours 5-40 mL, IntraVENous, Every 12 hours, First dose on Tue10/27/23 at 2215, For Line Patency: Peripheral IV = 5 mL; Midline or Central Line = 10 mL/lumen. If following IV push medication, administer flush at same rate as the IV push. Flush volume is determined by type of infusion therapy being given. For non-viscous solutions use: Peripheral IV = 5 mL Midline or Central Line = 10 mL/lumen For viscous solutions (i.e. blood components, parenteral nutrition, contrast media, or after obtaining blood sample) use: Peripheral IV = 10 mL Midline or Central Line = 20 mL/lumen Start: 10-27-2023 End: 11-04-2023 Start: 10-27-2023 End: 11-04-2023 Start: 03-08-2023 sodium chlorid e 0.65 % nasal spray Use 2 Sprays in each nostril as needed. 03/08/2023 Active sodium chloride ([place]) 0.65 % nasal spray Administer 1 spray into each nostril every 2 hours as needed for congestion. Active Comment on above: Use 2 Sprays in each nostril as needed. sulfamethoxazole 800 mg / trimethoprim 160 mg oral tablet (13 sources) Dihydrofolate Reductase Inhibitor Antibacterial, Sulfonamide Antimicrobial Start: 02-20-20 End: 02-28-20 take 2 tablets by mouth every twelve hours sulfamethoxazol e-trimethoprim (Bactrim DS) 800-160 MG tablet Take 2 tablets by mouth in the morning and 2 tablets in the evening. 02/20/2024 02/28/2024 Start: 10-23-2023 End: 10-25-2023 tiZANidine 4 mg oral tablet (20 sources) Central alpha-2 Adrenergic Agonist Start: 03-03-2020 End: 07-29-2023 Comment on above: TAKE 1 TABLET BY DENNY TH THREE TIMES DAILY NEEDED FOR MUSCLE SPASMS or back pain traMADol hydrochloride 50 mg oral tablet (1 source) Opioid Agonist Start: 08-27-2016 traMADol (ULTR AM) 50 mg tablet valsartan 40 mg oral tablet (4 sources) Angiotensin 2 Receptor Ya Start: 12-15-2022 End: 01-14-2023 take 1 tablet by mouth once daily valsartan (DIOVAN) 40 mg tablet Take 1 tablet by mouth once daily. 30 tablet 0 12/15/2022 Suspended Comment on above: Take 1 tablet by denny th once daily. Zinc (7 sources) Start: 03-03-2020 End: 07-29-2023 take 50 mg by mouth once daily Zinc Discontinued 50 MG PO DAILY March 03, 2020 12:00am July 29, 2023 6:24pm Start: 03-03-2020 take 50 mg by mouth once daily Zinc Active 50 MG PO DAILY March 02, 2020 11:00pm Start: 03-03-2020 take 50 mg by mouth once daily Zinc Active 50 MG PO DAILY March 03, 2020 12:00am Problems Active Problems Problem Classification Problem Date Documented Da te Episodic/Chronic Abdominal pain (12 sources) Abdominal pain; Translations: [Unspecified abdominal pain] 10-31-2023 Episodic Acute and unspecified renal failure (20 sources) Acute renal failure syndrome; Translations: [Acute kidney failure, unspecified] 11-15-2022 Episodic Acute posthemorrhagic anemia (17 sources) Acute posthemorrhagic anemia; Translations: [Acute posthemorrhagic anemia] Onset: 10-17-2024 07-29-2023 Episodic Cardiac dysrhythmias (15 sources) Sinus tachycardia; Translations: [Tachycardia, unspecified] 07-29-2023 Episodic Chronic ulcer of skin (20 sources) Pressure ulcer of unspecified site, unstageable; Translations: [Pressure injury, unstageable, with eschar] Onset: 02-06-2023 Resolved: 02-29-2024 02-02-2023 Chronic Congestive heart failure; nonhypertensive (20 sources) Heart failure; Translations: [Heart failure, unspecified] Onset: 12-14-2022 Resolved: 02-29-2024 10-28-2023 Chronic Deficiency and other anemia (13 sources) Anemia due to blood loss; Translations: [Iron deficiency anemia secondary to blood loss (chronic)] 09-02-2023 Chronic Deficiency and other anemia (1 source) Iron deficiency anemia secondary to blood loss (chronic); Translations: [Iron deficiency anemia secondary to blood loss (chronic)] 09-13-2023 Chronic Deficiency and other anemia (20 sources) Anemia; Translations: [Anemia, unspecified] Onset: 12-20-2022 11-16-2022 Episodic Deficiency and other anemia (20 sources) Iron deficiency anemia; Translations: [Iron deficiency anemia, unspecified] Onset: 02-06-2023 Resolved: 02-29-2024 02-06-2023 Episodic Deficiency and other anemia (3 sources) Iron deficiency anemia, unspecified; Translations: [Iron deficiency anemia, unspecified iron deficiency anemia type] Onset: 03-08-2023 Episodic Deficiency and other anemia (17 sources) Chronic anemia; Translations: [Anemia, unspecified] Onset: 12-20-2022 08-31-2023 Episodic Diabetes mellitus with complications (20 sources) Hyperglycemia due to type 2 diabetes mellitus; Translations: [Type 2 diabetes mellitus with hyperglycemia] Onset: 12-20-2022 Resolved: 02-29-2024 02-08-2023 Chronic Diabetes mellitus without complication (20 sources) Type 2 diabetes mellitus; Translations: [Type 2 diabetes mellitus without complications] Onset: 11-17-2022 Resolved: 02-29-2024 11-15-2022 Chronic Diseases of white blood cells (20 sources) Leukocytosis; Translations: [Elevated white blood cell count, unspecified] 11-16-2022 Chronic Essential hypertension (20 sources) Essential (primary) hypertension; Translations: [Hypertensive disorder] Onset: 01-14-2017 Resolved: 02-29-2024 11-18-2022 Chronic Genitourinary symptoms and ill-defined conditions (20 sources) Urinary incontinence; Translations: [Unspecified urinary incontinence] Onset: 01-02-2024 01-02-2024 Chronic Genitourinary symptoms and ill-defined conditions (20 sources) Hematuria, unspecified; Translations: [Dylan hematuria] Onset: 12-14-2022 Resolved: 02-29-2024 08-31-2023 Episodic Infective arthritis and osteomyelitis (except that caused by tuberculosis or sexually transmitted di (20 sources) Osteomyelitis of vertebra, lumbar region; Translations: [Osteomyelitis of vertebra] Onset: 01-14-2017 Resolved: 02-29-2024 03-13-2017 Chronic Nonspecific chest pain (10 sources) Chest pain; Translations: [Chest pain, unspecified] 10-12-2024 Episodic Other aftercare (20 sources) Long-term current use of anticoagulant; Translations: [intermediate card tender (current) use of anticoagulants] 08-31-2023 Episodic Other aftercare (4 sources) intermediate card tender (current) use of anticoagulants; Translations: [Long-term (current) use of anticoagulants] Onset: 11-13-2024 08-31-2023 Episodic Other aftercare (2 sources) Long-term current use of antibiotic; Translations: [MCFP (current) use of antibiotics] 10-31-2023 Episodic Other connective tissue disease (17 sources) Rhabdomyolysis; Translations: [Rhabdomyolysis] 02-01-2023 Episodic Other connective tissue disease (1 source) Rhabdomyolysis; Translations: [Rhabdomyolysis] 02-06-2023 Episodic Other diseases of bladder and urethra (1 source) Neuromuscular dysfunction of bladder, unspecified; Translations: [Neuromuscular dysfunction of bladder, unspecified] Onset: 05-18-2024 Chronic Other diseases of veins and lymphatics (20 sources) Lymphedema; Translations: [Lymphedema, not elsewhere classified] Onset: 12-20-2022 Resolved: 02-29-2024 11-17-2022 Chronic Other diseases of veins and lymphatics (3 sources) Lymphedema, not elsewhere classified; Translations: [Other lymphedema] Onset: 11-13-2024 11-17-2022 Chronic Other endocrine disorders (17 sources) Hypoglycemia; Translations: [Hypoglycemia, unspecified] 02-01-2023 Chronic Other endocrine disorders (1 source) Hypoglycemia, unspecified; Translations: [Hypoglycemia, unspecified] 02-06-2023 Chronic Other gastrointestinal disorders (2 sources) Colostomy status; Translations: [Colostomy status] Onset: 11-13-2024 Chronic Other lower respiratory disease (20 sources) Hypoxia; Translations: [Hypoxemia] 11-15-2022 Episodic Other lower respiratory disease (6 sources) Hypoxemia; Translations: [Hypoxemia] Onset: 11-13-2024 11-15-2022 Episodic Other nervous system disorders (20 sources) Chronic pain; Translations: [Other chronic pain] 08-17-2024 Chronic Other nervous system disorders (2 sources) Chronic pain syndrome; Translations: [Chronic pain syndrome] Onset: 11-13-2024 Chronic Other nervous system disorders (20 sources) History of clinical finding in subject; Translations: [Personal history of other diseases of the nervous system and sense organs] 08-31-2023 Episodic Other nervous system disorders (4 sources) Personal history of other diseases of the nervous system and sense organs; Translations: [Personal history of other disorders of nervous system and sense organs] Onset: 11-13-2024 08-31-2023 Episodic Other nutritional; endocrine; and metabolic disorders (20 sources) Body mass index 40+ - severely obese; Translations: [Morbid (severe) obesity due to excess calories] Onset: 02-21-2017 Resolved: 02-29-2024 11-17-2022 Chronic Other nutritional; endocrine; and metabolic disorders (20 sources) H/O: diabetes mellitus; Translations: [Personal history of other endocrine, nutritional and metabolic disease] 08-31-2023 Episodic Other nutritional; endocrine; and metabolic disorders (2 sources) Personal history of other endocrine, nutritional and metabolic disease; Translations: [Personal history of other endocrine, metabolic, and immunity disorders] 08-31-2023 Episodic Other screening for suspected conditions (not mental disorders or infectious disease) (20 sources) Raised cardiac enzyme or marker; Translations: [Other specified abnormal findings of blood chemistry] Onset: 02-06-2023 Resolved: 03-08-2023 02-06-2023 Episodic Paralysis (20 sources) Hemiparesis; Translations: [Hemiplegia, unspecified affecting unspecified side] Onset: 11-17-2022 Resolved: 02-29-2024 11-17-2022 Chronic Phlebitis; thrombophlebitis and thromboembolism (20 sources) H/O: Deep vein thrombosis; Translations: [Personal history of other venous thrombosis and embolism] Onset: 11-13-2024 08-31-2023 Episodic Pleurisy; pneumothorax; pulmonary collapse (20 sources) Pleural effusion; Translations: [Pleural effusion, not elsewhere classified] Onset: 12-05-2022 12-05-2022 Episodic Pneumonia (except that caused by tuberculosis or sexually transmitted disease) (20 sources) Hospital acquired pneumonia; Translations: [Pneumonia, unspecified organism] Onset: 11-27-2022 11-27-2022 Episodic Pulmonary heart disease (20 sources) Pulmonary embolism; Translations: [Other pulmonary embolism without acute cor pulmonale] Onset: 02-06-2023 Resolved: 02-29-2024 02-01-2023 Episodic Residual codes; unclassified (20 sources) Obstructive sleep apnea syndrome; Translations: [Obstructive sleep apnea (adult) (pediatric)] Onset: 11-29-2022 Resolved: 02-29-2024 11-17-2022 Chronic Residual codes; unclassified (4 sources) Obstructive sleep apnea (adult) (pediatric); Translations: [Obstructive sleep apnea (adult)(pediatric)] Onset: 03-08-2023 11-17-2022 Chronic Residual codes; unclassified (20 sources) Urinary catheter in situ; Translations: [Presence of other specified devices] 09-06-2023 Episodic Residual codes; unclassified (3 sources) Presence of other specified devices; Translations: [Other postprocedural status] Onset: 11-13-2024 09-13-2023 Episodic Residual codes; unclassified (20 sources) H/O Spinal surgery; Translations: [Other specified postprocedural states] 08-17-2024 Episodic Residual codes; unclassified (2 sources) Other specified postprocedural states; Translations: [Other specified postprocedural states] Onset: 11-13-2024 Episodic Respiratory failure; insufficiency; arrest (adult) (14 sources) Kjwey-gk-yvxuizz respiratory failure; Translations: [Acute and chronic respiratory failure with hypoxia] Onset: 11-19-2024 10-29-2024 Chronic Septicemia (except in labor) (20 sources) Sepsis; Translations: [Sepsis, unspecified organism] Onset: 07-30-2023 11-15-2022 Episodic Spondylosis; intervertebral disc disorders; other back problems (8 sources) Discitis, unspecified, lumbar region; Translations: [Discitis, unspecified, site unspecified] Onset: 01-14-2017 Chronic Spondylosis; intervertebral disc disorders; other back problems (20 sources) Spinal stenosis; Translations: [Spinal stenosis, site unspecified] Onset: 11-18-2022 Resolved: 02-29-2024 11-19-2022 Episodic Unclassified (1 source) Unknown / UNK(Unknown) Onset: 02-17-2017 Unclassified (2 sources) New Patient; Translations: [New Patient] Onset: 02-29-2024 Unclassified (1 source) Low back pain, unspecified; Translations: [Low back pain, unspecified] Onset: 02-20-2024 Urinary tract infections (20 sources) Infection due to ESBL Escherichia coli; Translations: [Urinary tract infection, site not specified] Onset: 10-27-2023 10-31-2023 Episodic Viral infection (19 sources) Disease caused by 2019-nCoV; Translations: [COVID-19] 04-08-2021 Episodic Past or Other Problems Problem Classification Problem Date Documented Date Episodic/Chronic Acute myocardial infarction (13 sources) Myocardial infarction; Translations: [Non-ST elevation (NSTEMI) myocardial infarction] Onset: 02-08-2023 Resolved: 03-08-2023 02-08-2023 Chronic Administrative/social admission (17 sources) Impaired mobility; Translations: [Other reduced mobility] Onset: 02-08-2023 02-08-2023 Episodic Aspiration pneumonitis; food/vomitus (20 sources) Aspiration pneumonitis; Translations: [Pneumonitis due to inhalation of food and vomit] Onset: 12-05-2022 Resolved: 02-29-2024 12-05-2022 Episodic Bacterial infection; unspecified site (20 sources) Bacteremia; Translations: [Bacteremia] Onset: 11-18-2022 11-19-2022 Episodic Complication of device; implant or graft (20 sources) Arteriovenous graft thrombosis; 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, implants and grafts, initial encounter] Onset: 02-16-2017 Resolved: 02-29-2024 02-16-2017 Chronic Deficiency and other anemia (4 sources) Anemia, unspecified; Translations: [Anemia, unspecified] Onset: 05-18-2024 11-17-2022 Episodic E Codes: Fall (20 sources) Fall; Translations: [Unspecified fall, initial encounter] Onset: 12-11-2022 12-11-2022 Episodic Fluid and electrolyte disorders (20 sources) Acute hyperkalemia; Translations: [Hyperkalemia] Onset: 08-16-2024 11-15-2022 Episodic Immunizations and screening for infectious disease (20 sources) 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; Translations: [Carrier or suspected carrier of Methicillin susceptible Staphylococcus aureus] Onset: 11-18-2022 11-18-2022 Episodic Open wounds of head; neck; and trunk (20 sources) Finding of sacral region; Translations: [Unspecified open wound of lower back and pelvis without penetration into retroperitoneum, sequela] Onset: 08-01-2023 Resolved: 02-29-2024 10-07-2023 Episodic Other acquired deformities (20 sources) Lumbar spondylolisthesis; Translations: [Spondylolisthesis, lumbar region] Onset: 05-21-2016 Resolved: 02-29-2024 05-21-2016 Episodic Other acquired deformities (1 source) Spondylolisthesis, lumbar region; Translations: [Spondylolisthesis, lumbar region] Onset: 05-21-2016 Episodic Other aftercare (6 sources) intermediate card tender (current) use of antibiotics; Translations: [Encounter for therapeutic drug level monitoring] Onset: 02-04-2017 Episodic Other aftercare (20 sources) Drug therapy finding; Translations: [Other intermediate card tender (current) drug therapy] Onset: 12-05-2022 12-05-2022 Episodic Other aftercare (13 sources) Insulin dose changed; Translations: [intermediate card tender (current) use of insulin] Onset: 02-12-2023 Resolved: 03-08-2023 02-12-2023 Episodic Other connective tissue disease (1 source) Arthrodesis status; Translations: [ARTHRODESIS STATUS] Onset: 01-14-2017 Episodic Other connective tissue disease (13 sources) Non-traumatic rhabdomyolysis; Translations: [Rhabdomyolysis] Onset: 02-06-2023 Resolved: 03-08-2023 02-06-2023 Episodic Other fractures (20 sources) Wedge fracture of thoracic vertebra; Translations: [Wedge compression fracture of T9-T10 vertebra, sequela] Onset: 12-14-2022 Resolved: 02-29-2024 10-28-2023 Episodic Other inflammatory condition of skin (20 sources) Irritant contact dermatitis; Translations: [Erythema intertrigo] Onset: 12-02-2022 12-02-2022 Episodic Other injuries and conditions due to external causes (20 sources) Mucoid impaction of bronchi; Translations: [Unspecified foreign body in bronchus causing asphyxiation, initial encounter] Onset: 12-05-2022 12-05-2022 Episodic Other lower respiratory disease (20 sources) Acute pulmonary edema; Translations: [Acute pulmonary edema] Onset: 12-05-2022 12-05-2022 Episodic Other nervous system disorders (17 sources) Tremor; Translations: [Tremor, unspecified] Onset: 02-08-2023 02-08-2023 Episodic Other nutritional; endocrine; and metabolic disorders (20 sources) Morbid obesity; Translations: [Morbid (severe) obesity due to excess calories] Onset: 02-08-2023 Resolved: 02-29-2024 02-08-2023 Chronic Other skin disorders (20 sources) Xeroderma; Translations: [Xerosis cutis] Onset: 12-02-2022 12-02-2022 Episodic Other skin disorders (16 sources) Finding of integrity of skin; Translations: [Unspecified skin changes] Onset: 02-25-2023 03-08-2023 Episodic Other skin disorders (12 sources) Asteatosis cutis; Translations: [Xerosis cutis] Onset: 08-01-2023 08-01-2023 Episodic Residual codes; unclassified (20 sources) Patient encounter status; Translations: [Pain, unspecified] Onset: 11-29-2022 11-29-2022 Episodic Respiratory failure; insufficiency; arrest (adult) (20 sources) Acute respiratory failure; Translations: [Acute respiratory failure with hypoxia] Onset: 11-26-2022 11-26-2022 Episodic Skin and subcutaneous tissue infections (20 sources) Cellulitis of lower leg; Translations: [Cellulitis of left lower limb] Onset: 11-17-2022 Resolved: 03-08-2023 11-15-2022 Episodic Spinal cord injury (20 sources) Injury of lumbar spinal cord; Translations: [Unspecified injury to L1 level of lumbar spinal cord, initial encounter] Onset: 11-18-2022 Resolved: 02-29-2024 11-17-2022 Chronic Unclassified (1 source) Thrombosis due to vascular prosthetic devices, implants and grafts, initial encounter Onset: 02-17-2017 Unclassified (7 sources) H/o back surgery 12-13-2021 Unclassified (8 sources) Body mass index 40+ - severely obese; Translations: [Body mass index (BMI) greater than 40] 04-08-2021 Varicose veins of lower extremity (20 sources) Varicose veins of 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, [address] BUN/CRE Normal 03-04 [facility] Comment on above: Result Comment: Canc elled via OM: Order cancelled - Patient discharged Performed By: #### L 100.0100, L500.2500 ####[facility] [address] [place], [address] Calcium Normal 7.6-11.0 [facility] Comment on above: Result Comment: Canc elled via OM: Order cancelled - Patient discharged Performed By: #### L 100.0100, L500.2500 ####[facility] [address] [place], [address] CL Normal 98-108 [facility] Comment on above: Result Comment: Canc elled via OM: Order cancelled - Patient discharged Performed By: #### L 100.0100, L500.2500 ####[facility] [address] [place], [address] CO2 Normal 21.0-32.0 [facility] Comment on above: Result Comment: Canc elled via OM: Order cancelled - Patient discharged Performed By: #### L 100.0100, L500.2500 ####[facility] [address] [place], [address] CREAT,SERUM Normal 0.70-1.20 [facility] Comment on above: Result Comment: Canc elled via OM: Order cancelled - Patient discharged Performed By: #### L 100.0100, L500.2500 ####[facility] [address] [place], [address] eGFR Normal >60 [facility] Comment on above: Result Comment: Canc elled via OM: Order cancelled - Patient discharged Performed By: #### L 100.0100, L500.2500 ####[facility] [address] [place], [address] GAP Normal 5-15 [facility] Comment on above: Result Comment: Canc elled via OM: Order cancelled - Patient discharged Performed By: #### L 100.0100, L500.2500 ####[facility] [address], [address] GLU Normal 70-99 [facility] Comment on above: Result Comment: Canc elled via OM: Order cancelled - Patient discharged Performed By: #### L 100.0100, L500.2500 ####[facility] [address] [place], [address] Potassium Normal 3.3-5.1 [facility] Comment on above: Result Comment: Canc elled via OM: Order cancelled - Patient discharged Performed By: #### L 100.0100, L500.2500 ####[facility] [address] [place], [address] Basic Metabolic Profile (BMP) Normal 133-145 [facility] Comment on above: Result Comment: Canc elled via OM: Order cancelled - Patient discharged Performed By: #### L 100.0100, L500.2500 ####[facility] [address] [place], [address] CBC W/Diff, Automatedon 06-2 -2024 Absolute Neut Normal 2.0-7.7 [facility] Comment on above: Result Comment: Canc elled via OM: Order cancelled - Patient discharged Performed By: #### L 100.0100, L500.2500 ####[facility] [address] [place], [address] HCT Normal 40-54 [facility] Comment on above: Result Comment: Canc elled via OM: Order cancelled - Patient discharged Performed By: #### L 100.0100, L500.2500 ####[facility] [address] [place], [address] HGB Normal 13.0-16.5 [facility] Comment on above: Result Comment: Canc elled via OM: Order cancelled - Patient discharged Performed By: #### L 100.0100, L500.2500 ####[facility] [address] [place], [address] MCH Normal 27.0-32.0 [facility] Comment on above: Result Comment: Canc elled via OM: Order cancelled - Patient discharged Performed By: #### L 100.0100, L500.2500 ####[facility] [address] [place], [address] MCHC Normal 32-36 [facility] Comment on above: Result Comment: Canc elled via OM: Order cancelled - Patient discharged Performed By: #### L 100.0100, L500.2500 ####[facility] [address] [place], [address] MCV Normal 80-94 [facility] Comment on above: Result Comment: Canc elled via OM: Order cancelled - Patient discharged Performed By: #### L 100.0100, L500.2500 ####[facility] [address] [place], [address] NEUT% Normal 47-70 [facility] Comment on above: Result Comment: Canc elled via OM: Order cancelled - Patient discharged Performed By: #### L 100.0100, L500.2500 ####[facility] [address] [place], [address] PLT Normal 150-450 [facility] Comment on above: Result Comment: Canc elled via OM: Order cancelled - Patient discharged Performed By: #### L 100.0100, L500.2500 ####[facility] [address] [place], [address] RBC Normal 4.6-6.2 [facility] Comment on above: Result Comment: Canc elled via OM: Order cancelled - Patient discharged Performed By: #### L 100.0100, L500.2500 ####[facility] [address] [place], [address] RDW CV Normal 11.6-14.6 [facility] Comment on above: Result Comment: Canc elled via OM: Order cancelled - Patient discharged Performed By: #### L 100.0100, L500.2500 ####[facility] [address], [address] RDW SD Normal 35.1-43.9 [facility] Comment on above: Result Comment: Canc elled via OM: Order cancelled - Patient discharged Performed By: #### L 100.0100, L500.2500 ####[facility] [address] [place], [address] WBC Normal 4.4-11.0 [facility] Comment on above: Result Comment: Canc elled via OM: Order cancelled - Patient discharged Performed By: #### L 100.0100, L500.2500 ####[facility] [address] [place], [address] Gram stainOrdered By: Jose Eduardo Beal on 11-07-2024 Microscopic observation Gram stain Nom (Unsp spec) [facility] Basic Metabolic Profile (BMP )on 11-06-2024 BUN Normal 4-19 [facility] Comment on above: Result Comment: Canc elled via OM: Order cancelled - Patient discharged Performed By: #### L 100.0100, L500.2500 ####[facility] [address] [place], [address] BUN/CRE Normal 10-20 [facility] Comment on above: Result Comment: Canc elled via OM: Order cancelled - Patient discharged Performed By: #### L 100.0100, L500.2500 ####[facility] [address] [place], [address] Calcium Normal 7.6-11.0 [facility] Comment on above: Result Comment: Canc elled via OM: Order cancelled - Patient discharged Performed By: #### L 100.0100, L500.2500 ####[facility] [address] [place], [address] CL Normal 98-108 [facility] Comment on above: Result Comment: Canc elled via OM: Order cancelled - Patient discharged Performed By: #### L 100.0100, L500.2500 ####[facility] [address] [place], [address] CO2 Normal 21.0-32.0 [facility] Comment on above: Result Comment: Canc elled via OM: Order cancelled - Patient discharged Performed By: #### L 100.0100, L500.2500 ####[facility] [address] [place], [address] CREAT,SERUM Normal 0.70-1.20 [facility] Comment on above: Result Comment: Canc elled via OM: Order cancelled - Patient discharged Performed By: #### L 100.0100, L500.2500 ####[facility] [address] [place], [address] eGFR Normal >60 [facility] Comment on above: Result Comment: Canc elled via OM: Order cancelled - Patient discharged Performed By: #### L 100.0100, L500.2500 ####[facility] [address] [place], [address] GAP Normal 5-15 [facility] Comment on above: Result Comment: Canc elled via OM: Order cancelled - Patient discharged Performed By: #### L 100.0100, L500.2500 ####[facility] [address] [place], [address] GLU Normal 70-99 [facility] Comment on above: Result Comment: Canc elled via OM: Order cancelled - Patient discharged Performed By: #### L 100.0100, L500.2500 ####[facility] [address] [place], [address] Potassium Normal 3.3-5.1 [facility] Comment on above: Result Comment: Canc elled via OM: Order cancelled - Patient discharged Performed By: #### L 100.0100, L500.2500 ####[facility] [address] [place], [address] Basic Metabolic Profile (BMP) Normal 133-145 [facility] Comment on above: Result Comment: Canc elled via OM: Order cancelled - Patient discharged Performed By: #### L 100.0100, L500.2500 ####[facility] [address] [place], [address] CBC W/Diff, Automatedon 06-2 Absolute Neut Normal 2.0-7.7 [facility] Comment on above: Result Comment: Canc elled via OM: Order cancelled - Patient discharged Performed By: #### L 100.0100, L500.2500 ####[facility] [address] [place], [address] HCT Normal 40-54 [facility] Comment on above: Result Comment: Canc elled via OM: Order cancelled - Patient discharged Performed By: #### L 100.0100, L500.2500 ####[facility] [address] [place], [address] HGB Normal 13.0-16.5 [facility] Comment on above: Result Comment: Canc elled via OM: Order cancelled - Patient discharged Performed By: #### L 100.0100, L500.2500 ####[facility] [address] [place], [address] MCH Normal 27.0-32.0 [facility] Comment on above: Result Comment: Canc elled via OM: Order cancelled - Patient discharged Performed By: #### L 100.0100, L500.2500 ####[facility] [address] [place], [address] MCHC Normal 32-36 [facility] Comment on above: Result Comment: Canc elled via OM: Order cancelled - Patient discharged Performed By: #### L 100.0100, L500.2500 ####[facility] [address] [place], [address] MCV Normal 80-94 [facility] Comment on above: Result Comment: Canc elled via OM: Order cancelled - Patient discharged Performed By: #### L 100.0100, L500.2500 ####[facility] [address] [place], [address] NEUT% Normal 47-70 [facility] Comment on above: Result Comment: Canc elled via OM: Order cancelled - Patient discharged Performed By: #### L 100.0100, L500.2500 ####[facility] [address] [place], [address] PLT Normal 150-450 [facility] Comment on above: Result Comment: Canc elled via OM: Order cancelled - Patient discharged Performed By: #### L 100.0100, L500.2500 ####[facility] [address] [place], [address] RBC Normal 4.6-6.2 [facility] Comment on above: Result Comment: Canc elled via OM: Order cancelled - Patient discharged Performed By: #### L 100.0100, L500.2500 ####[facility] [address] [place], [address] RDW CV Normal 11.6-14.6 [facility] Comment on above: Result Comment: Canc elled via OM: Order cancelled - Patient discharged Performed By: #### L 100.0100, L500.2500 ####[facility] [address] [place], [address] RDW SD Normal 35.1-43.9 [facility] Comment on above: Result Comment: Canc elled via OM: Order cancelled - Patient discharged Performed By: #### L 100.0100, L500.2500 ####[facility] [address] [place], [address] WBC Normal 4.4-11.0 [facility] Comment on above: Result Comment: Canc elled via OM: Order cancelled - Patient discharged Performed By: #### L 100.0100, L500.2500 ####[facility] [address] [place], [address] Absolute lymphocyte countOrd ered By: Rocio Bartlett on 11-05-2024 Lymphocytes Auto (Unsp spec) [#/Vol] 2.30 10*3/uL 0.83-4.51 [facility] Anion gap in Serum or Plasma Ordered By: [place]fernanda Bartlett on 11-05-2024 Anion gap [Moles/Vol] 11 mmol/L 5-15 [facility] Automated lymphocyte count a s percentage of total leukocytesOrdered By: Rocio Bartlett on 11-05-2024 Lymphocytes/100 WBC Auto (Unsp spec) 29.3 % 19-41 [facility] BUN/creatinine ratioOrdered By: Rocio Bartlett on 11-05-2024 Urea nitrogen/Creatinine [Mass ratio] 26.5 mg/mg High 10- [facility] Basic Metabolic Profile (BMP )on 11-05-2024 BUN Normal 4-19 [facility] Comment on above: Result Comment: Canc elled via OM: Order cancelled - Patient discharged Performed By: #### L 500.2500, L100.0100 ####[facility] [address] [place], [address] BUN/CRE Normal - [facility] Comment on above: Result Comment: Canc elled via OM: Order cancelled - Patient discharged Performed By: #### L 500.2500, L100.0100 ####[facility] [address] [place], [address] Calcium Normal 7.6-11.0 [facility] Comment on above: Result Comment: Canc elled via OM: Order cancelled - Patient discharged Performed By: #### L 500.2500, L100.0100 ####[facility] [address] [place], [address] CL Normal 98-108 [facility] Comment on above: Result Comment: Canc elled via OM: Order cancelled - Patient discharged Performed By: #### L 500.2500, L100.0100 ####[facility] [address] [place], [address] CO2 Normal 21.0-32.0 [facility] Comment on above: Result Comment: Canc elled via OM: Order cancelled - Patient discharged Performed By: #### L 500.2500, L100.0100 ####[facility] [address] [place], [address] CREAT,SERUM Normal 0.70-1.20 [facility] Comment on above: Result Comment: Canc elled via OM: Order cancelled - Patient discharged Performed By: #### L 500.2500, L100.0100 ####[facility] [address] [place], [address] eGFR Normal >60 [facility] Comment on above: Result Comment: Canc elled via OM: Order cancelled - Patient discharged Performed By: #### L 500.2500, L100.0100 ####[facility] [address] [place], [address] GAP Normal 5-15 [facility] Comment on above: Result Comment: Canc elled via OM: Order cancelled - Patient discharged Performed By: #### L 500.2500, L100.0100 ####[facility] [address] [place], [address] GLU Normal 70-99 [facility] Comment on above: Result Comment: Canc elled via OM: Order cancelled - Patient discharged Performed By: #### L 500.2500, L100.0100 ####[facility] [address] [place], [address] Potassium Normal 3.3-5.1 [facility] Comment on above: Result Comment: Canc elled via OM: Order cancelled - Patient discharged Performed By: #### L 500.2500, L100.0100 ####[facility] [address] [place], [address] Basic Metabolic Profile (BMP) Normal 133-145 [facility] Comment on above: Result Comment: Canc elled via OM: Order cancelled - Patient discharged Performed By: #### L 500.2500, L100.0100 ####[facility] [address] [place], [address] Basophil percentageOrdered B y: Efewongbe Oleghe on 11-05-2024 Basophils/100 WBC (Bld) 0.5 % 0-1 [facility] CBC W/Diff, Automatedon - Absolute Neut Normal 2.0-7.7 [facility] Comment on above: Result Comment: Canc elled via OM: Order cancelled - Patient discharged Performed By: #### L 500.2500, L100.0100 ####[facility] [address] [place], [address] HCT Normal 40-54 [facility] Comment on above: Result Comment: Canc elled via OM: Order cancelled - Patient discharged Performed By: #### L 500.2500, L100.0100 ####[facility] [address] [place], [address] HGB Normal 13.0-16.5 [facility] Comment on above: Result Comment: Canc elled via OM: Order cancelled - Patient discharged Performed By: #### L 500.2500, L100.0100 ####[facility] [address] [place], [address] MCH Normal 27.0-32.0 [facility] Comment on above: Result Comment: Canc elled via OM: Order cancelled - Patient discharged Performed By: #### L 500.2500, L100.0100 ####[facility] [address], [address] MCHC Normal 32-36 [facility] Comment on above: Result Comment: Canc elled via OM: Order cancelled - Patient discharged Performed By: #### L 500.2500, L100.0100 ####[facility] [address] [place], [address] MCV Normal 80-94 [facility] Comment on above: Result Comment: Canc elled via OM: Order cancelled - Patient discharged Performed By: #### L 500.2500, L100.0100 ####[facility] [address] [place], [address] NEUT% Normal 47-70 [facility] Comment on above: Result Comment: Canc elled via OM: Order cancelled - Patient discharged Performed By: #### L 500.2500, L100.0100 ####[facility] [address] [place], [address] PLT Normal 150-450 [facility] Comment on above: Result Comment: Canc elled via OM: Order cancelled - Patient discharged Performed By: #### L 500.2500, L100.0100 ####[facility] [address] [place], [address] RBC Normal 4.6-6.2 [facility] Comment on above: Result Comment: Canc elled via OM: Order cancelled - Patient discharged Performed By: #### L 500.2500, L100.0100 ####[facility] [address], [address] RDW CV Normal 11.6-14.6 [facility] Comment on above: Result Comment: Canc elled via OM: Order cancelled - Patient discharged Performed By: #### L 500.2500, L100.0100 ####[facility] [address] [place], [address] RDW SD Normal 35.1-43.9 [facility] Comment on above: Result Comment: Canc elled via OM: Order cancelled - Patient discharged Performed By: #### L 500.2500, L100.0100 ####[facility] [address] [place], [address] WBC Normal 4.4-11.0 [facility] Comment on above: Result Comment: Canc elled via OM: Order cancelled - Patient discharged Performed By: #### L 500.2500, L100.0100 ####[facility] [address] [place], [address] Carbon dioxide, total [Moles /volume] in Central venous bloodOrdered By: Rocio Bartlett on 11-05-2024 CO2 [Moles/Vol] 33.6 mmol/L High 21.0-32.0 [facility] Chloride assayOrdered By: Coretta Bartlett on 11-05-2024 Chloride [Moles/Vol] 95 mmol/L Low 98-108 [facility] Eosinophil percentageOrdered By: Rocio Bartlett on 11-05-2024 Eosinophils/100 WBC (Bld) 5.9 % High 0-5 [facility] Erythrocyte distribution wid th ratioOrdered By: Rocio Bartlett on 11-05-2024 Erythrocyte distribution width (RBC) [Ratio] 18.4 % High 11.6-14.6 [facility] Erythrocyte distribution wid th standard deviationOrdered By: Rocio Bartlett on 11-05-2024 Erythrocyte distribution width (RBC) [Ratio] 54.4 fl High 35.1-43.9 [facility] Glomerular filtration rate ( GFR) estimation/1.73 sq m using serum, plasma, or whole bOrdered By: Rocio Bartlett on 11-05-2024 GFR/1.73 sq M.predicted among non-blacks MDRD (S/P/Bld) [Vol rate/Area] 94 mL/min/{1.73_m2} >60 [facility] Hematocrit Auto (Bld) [Volum e fraction]Ordered By: Corettafannyamorfernanda Reardonsmithmyranda on 11-05-2024 Hematocrit (Bld) [Volume fraction] 31.6 % Low 40-54 [facility] Hemoglobin measurementOrdere d By: Corettafannydilip Corneliussmithmyranda on 11-05-2024 Hemoglobin (Bld) [Mass/Vol] 8.7 g/dL Low 13.0-16.5 [facility] Immature granulocytes/100 WB C Auto (Bld)Ordered By: sylvie Reardonsmithmyranda on 11-05-2024 Immature granulocytes/100 WBC (Bld) 0.500 % 0.0-0.9 [facility] MCV (mean corpuscular volume ) determinationOrdered By: Mirtharobstownfernanda Reardonsmithmyranda on 11-05-2024 MCV (RBC) [Entitic vol] 81.0 fL 80-94 [facility] Mean corpuscular hemoglobin (MCH) determinationOrdered By: Rocio Reardonsmithmyranda on 11-05-2024 MCH (RBC) [Entitic mass] 22.3 pg Low 27.0-32.0 [facility] Monocyte percentageOrdered B y: Corettafannyamorfernanda Reardonsmithmyranda on 11-05-2024 Monocytes/100 WBC (Bld) 7.8 % 0-10 [facility] Neutrophil percentageOrdered By: [facility] Center[facility] Reardonsmithmyranda on 11-05-2024 Neutrophils/100 WBC (Bld) 56.0 % 47-70 [facility] Platelet countOrdered By: Coretta sylvie Corneliussmithmyranda on 11-05-2024 Platelets (Bld) [#/Vol] 324 10*3/uL 150-450 [facility] Potassium measurement (mass/ volume)Ordered By: Corettasylvie Reardonsmithmyranda on 11-05-2024 Potassium (Unsp spec) [Mass/Vol] 4.1 mmol/L 3.3-5.1 [facility] RBC Auto (Bld) [#/Vol]Ordere d By: Corettafannydilip Corneliussmithmyranda on 11-05-2024 RBC (Bld) [#/Vol] 3.90 10*6/uL Low 4.6-6.2 [facility] Serum creatinine measurement (mass/volume)Ordered By: Rocio Bartlett on 11-05-2024 Creatinine [Mass/Vol] 0.95 mg/dL 0.70-1.20 [facility] Serum glucose measurement (m ass/volume)Ordered By: Rocio Bartlett on 11-05-2024 Glucose [Mass/Vol] 158 mg/dL High 70-99 [facility] Serum or plasma calcium sarah urement (mass/volume)Ordered By: Rocio Bartlett on 11-05-2024 Calcium [Mass/Vol] 8.6 mg/dL 7.6-11.0 [facility] Serum or plasma urea nitroge n measurement (mass/volume)Ordered By: Rocio Bartlett on 11-05-2024 Urea nitrogen [Mass/Vol] 25 mg/dL High - [facility] Sodium levelOrdered By: Mirtha covarrubiasliz Dhruv on 11-05-2024 Sodium [Moles/Vol] 139 mmol/L 133-145 [facility] White blood cell (WBC) count Ordered By: Rocio Bartlett on 11-05-2024 WBC (Bld) [#/Vol] 7.9 10*3/uL 4.4-11.0 [facility] Basic Metabolic Profile (BMP )on 11-04-2024 BUN Normal - [facility] Comment on above: Result Comment: Canc elled via OM: Order cancelled - Patient discharged Performed By: #### L 500.2500, L100.0100 ####[facility] [address] [place], [address] BUN/CRE Normal 10- [facility] Comment on above: Result Comment: Canc elled via OM: Order cancelled - Patient discharged Performed By: #### L 500.2500, L100.0100 ####[facility] [address] [place], [address] Calcium Normal 7.6-11.0 [facility] Comment on above: Result Comment: Canc elled via OM: Order cancelled - Patient discharged Performed By: #### L 500.2500, L100.0100 ####[facility] [address], [address] CL Normal 98-108 [facility] Comment on above: Result Comment: Canc elled via OM: Order cancelled - Patient discharged Performed By: #### L 500.2500, L100.0100 ####[facility] [address] [place], [address] CO2 Normal 21.0-32.0 [facility] Comment on above: Result Comment: Canc elled via OM: Order cancelled - Patient discharged Performed By: #### L 500.2500, L100.0100 ####[facility] [address] [place], [address] CREAT,SERUM Normal 0.70-1.20 [facility] Comment on above: Result Comment: Canc elled via OM: Order cancelled - Patient discharged Performed By: #### L 500.2500, L100.0100 ####[facility] [address] [place], [address] eGFR Normal >60 [facility] Comment on above: Result Comment: Canc elled via OM: Order cancelled - Patient discharged Performed By: #### L 500.2500, L100.0100 ####[facility] [address] [place], [address] GAP Normal 5-15 [facility] Comment on above: Result Comment: Canc elled via OM: Order cancelled - Patient discharged Performed By: #### L 500.2500, L100.0100 ####[facility] [address] [place], [address] GLU Normal 70-99 [facility] Comment on above: Result Comment: Canc elled via OM: Order cancelled - Patient discharged Performed By: #### L 500.2500, L100.0100 ####[facility] [address] [place], [address] Potassium Normal 3.3-5.1 [facility] Comment on above: Result Comment: Canc elled via OM: Order cancelled - Patient discharged Performed By: #### L 500.2500, L100.0100 ####[facility] [address] [place], [address] Basic Metabolic Profile (BMP) Normal 133-145 [facility] Comment on above: Result Comment: Canc elled via OM: Order cancelled - Patient discharged Performed By: #### L 500.2500, L100.0100 ####[facility] [address] [place], [address] CBC W/Diff, Automatedon 06-2 -2024 Absolute Neut Normal 2.0-7.7 [facility] Comment on above: Result Comment: Canc elled via OM: Order cancelled - Patient discharged Performed By: #### L 500.2500, L100.0100 ####[facility] [address] [place], [address] HCT Normal 40-54 [facility] Comment on above: Result Comment: Canc elled via OM: Order cancelled - Patient discharged Performed By: #### L 500.2500, L100.0100 ####[facility] [address] [place], [address] HGB Normal 13.0-16.5 [facility] Comment on above: Result Comment: Canc elled via OM: Order cancelled - Patient discharged Performed By: #### L 500.2500, L100.0100 ####[facility] [address] [place], [address] MCH Normal 27.0-32.0 [facility] Comment on above: Result Comment: Canc elled via OM: Order cancelled - Patient discharged Performed By: #### L 500.2500, L100.0100 ####[facility] [address] [place], [address] MCHC Normal 32-36 [facility] Comment on above: Result Comment: Canc elled via OM: Order cancelled - Patient discharged Performed By: #### L 500.2500, L100.0100 ####[facility] [address] [place], [address] MCV Normal 80-94 [facility] Comment on above: Result Comment: Canc elled via OM: Order cancelled - Patient discharged Performed By: #### L 500.2500, L100.0100 ####[facility] [address] [place], [address] NEUT% Normal 47-70 [facility] Comment on above: Result Comment: Canc elled via OM: Order cancelled - Patient discharged Performed By: #### L 500.2500, L100.0100 ####[facility] [address] [place], [address] PLT Normal 150-450 [facility] Comment on above: Result Comment: Canc elled via OM: Order cancelled - Patient discharged Performed By: #### L 500.2500, L100.0100 ####[facility] [address] [place], [address] RBC Normal 4.6-6.2 [facility] Comment on above: Result Comment: Canc elled via OM: Order cancelled - Patient discharged Performed By: #### L 500.2500, L100.0100 ####[facility] [address] [place], [address] RDW CV Normal 11.6-14.6 [facility] Comment on above: Result Comment: Canc elled via OM: Order cancelled - Patient discharged Performed By: #### L 500.2500, L100.0100 ####[facility] [address] [place], [address] RDW SD Normal 35.1-43.9 [facility] Comment on above: Result Comment: Canc elled via OM: Order cancelled - Patient discharged Performed By: #### L 500.2500, L100.0100 ####[facility] [address] [place], [address] WBC Normal 4.4-11.0 [facility] Comment on above: Result Comment: Canc elled via OM: Order cancelled - Patient discharged Performed By: #### L 500.2500, L100.0100 ####[facility] [address] [place], [address] Basic Metabolic Profile (BMP )on 11-03-2024 BUN Normal 4-19 [facility] Comment on above: Result Comment: Canc elled via OM: Order cancelled - Patient discharged Performed By: #### L 100.0100, L500.2500 ####[facility] [address] [place], [address] BUN/CRE Normal 10-20 [facility] Comment on above: Result Comment: Canc elled via OM: Order cancelled - Patient discharged Performed By: #### L 100.0100, L500.2500 ####[facility] [address] [place], [address] Calcium Normal 7.6-11.0 [facility] Comment on above: Result Comment: Canc elled via OM: Order cancelled - Patient discharged Performed By: #### L 100.0100, L500.2500 ####[facility] [address] [place], [address] CL Normal 98-108 [facility] Comment on above: Result Comment: Canc elled via OM: Order cancelled - Patient discharged Performed By: #### L 100.0100, L500.2500 ####[facility] [address] [place], [address] CO2 Normal 21.0-32.0 [facility] Comment on above: Result Comment: Canc elled via OM: Order cancelled - Patient discharged Performed By: #### L 100.0100, L500.2500 ####[facility] [address] [place], [address] CREAT,SERUM Normal 0.70-1.20 [facility] Comment on above: Result Comment: Canc elled via OM: Order cancelled - Patient discharged Performed By: #### L 100.0100, L500.2500 ####[facility] [address] [place], [address] eGFR Normal >60 [facility] Comment on above: Result Comment: Canc elled via OM: Order cancelled - Patient discharged Performed By: #### L 100.0100, L500.2500 ####[facility] [address] [place], [address] GAP Normal 5-15 [facility] Comment on above: Result Comment: Canc elled via OM: Order cancelled - Patient discharged Performed By: #### L 100.0100, L500.2500 ####[facility] [address] [place], [address] GLU Normal 70-99 [facility] Comment on above: Result Comment: Canc elled via OM: Order cancelled - Patient discharged Performed By: #### L 100.0100, L500.2500 ####[facility] [address] [place], [address] Potassium Normal 3.3-5.1 [facility] Comment on above: Result Comment: Canc elled via OM: Order cancelled - Patient discharged Performed By: #### L 100.0100, L500.2500 ####[facility] [address] [place], [address] Basic Metabolic Profile (BMP) Normal 133-145 [facility] Comment on above: Result Comment: Canc elled via OM: Order cancelled - Patient discharged Performed By: #### L 100.0100, L500.2500 ####[facility] [address] [place], [address] CBC W/Diff, Automatedon 06-2 Absolute Neut Normal 2.0-7.7 [facility] Comment on above: Result Comment: Canc elled via OM: Order cancelled - Patient discharged Performed By: #### L 100.0100, L500.2500 ####[facility] [address] [place], [address] HCT Normal 40-54 [facility] Comment on above: Result Comment: Canc elled via OM: Order cancelled - Patient discharged Performed By: #### L 100.0100, L500.2500 ####[facility] [address] [place], [address] HGB Normal 13.0-16.5 [facility] Comment on above: Result Comment: Canc elled via OM: Order cancelled - Patient discharged Performed By: #### L 100.0100, L500.2500 ####[facility] [address] [place], [address] MCH Normal 27.0-32.0 [facility] Comment on above: Result Comment: Canc elled via OM: Order cancelled - Patient discharged Performed By: #### L 100.0100, L500.2500 ####[facility] [address] [place], [address] MCHC Normal 32-36 [facility] Comment on above: Result Comment: Canc elled via OM: Order cancelled - Patient discharged Performed By: #### L 100.0100, L500.2500 ####[facility] [address] [place], [address] MCV Normal 80-94 [facility] Comment on above: Result Comment: Canc elled via OM: Order cancelled - Patient discharged Performed By: #### L 100.0100, L500.2500 ####[facility] [address], [address] NEUT% Normal 47-70 [facility] Comment on above: Result Comment: Canc elled via OM: Order cancelled - Patient discharged Performed By: #### L 100.0100, L500.2500 ####[facility] [address] [place], [address] PLT Normal 150-450 [facility] Comment on above: Result Comment: Canc elled via OM: Order cancelled - Patient discharged Performed By: #### L 100.0100, L500.2500 ####[facility] [address] [place], [address] RBC Normal 4.6-6.2 [facility] Comment on above: Result Comment: Canc elled via OM: Order cancelled - Patient discharged Performed By: #### L 100.0100, L500.2500 ####[facility] [address] [place], [address] RDW CV Normal 11.6-14.6 [facility] Comment on above: Result Comment: Canc elled via OM: Order cancelled - Patient discharged Performed By: #### L 100.0100, L500.2500 ####[facility] [address] [place], [address] RDW SD Normal 35.1-43.9 [facility] Comment on above: Result Comment: Canc elled via OM: Order cancelled - Patient discharged Performed By: #### L 100.0100, L500.2500 ####[facility] [address] [place], [address] WBC Normal 4.4-11.0 [facility] Comment on above: Result Comment: Canc elled via OM: Order cancelled - Patient discharged Performed By: #### L 100.0100, L500.2500 ####[facility] [address] [place], [address] Culture, Blood (WB)on 2024 CUB Blood cultures x2, f rom two different sites No growth in 5 days. Normal [facility] Comment on above: Performed By: #### M 200.1000 ####[facility] [address] [place], [address] CUB Blood cultures x2, f rom two different sites No growth in 5 days. Normal [facility] Comment on above: Performed By: #### L 300.3900, L501.4021, M200.1000, L503.7505, L300.4310, L500.4050, L503.6005, L100.0100 ####[facility] [address] [place], [address] Basic Metabolic Profile (BMP )on 11-02-2024 BUN Normal 4-19 [facility] Comment on above: Result Comment: Canc elled via OM: Order cancelled - Patient discharged Performed By: #### L 100.0100, L500.2500 ####[facility] [address] [place], [address] BUN/CRE Normal 10-20 [facility] Comment on above: Result Comment: Canc elled via OM: Order cancelled - Patient discharged Performed By: #### L 100.0100, L500.2500 ####[facility] [address] [place], [address] Calcium Normal 7.6-11.0 [facility] Comment on above: Result Comment: Canc elled via OM: Order cancelled - Patient discharged Performed By: #### L 100.0100, L500.2500 ####[facility] [address] [place], [address] CL Normal 98-108 [facility] Comment on above: Result Comment: Canc elled via OM: Order cancelled - Patient discharged Performed By: #### L 100.0100, L500.2500 ####[facility] [address] [place], [address] CO2 Normal 21.0-32.0 [facility] Comment on above: Result Comment: Canc elled via OM: Order cancelled - Patient discharged Performed By: #### L 100.0100, L500.2500 ####[facility] [address] [place], [address] CREAT,SERUM Normal 0.70-1.20 [facility] Comment on above: Result Comment: Canc elled via OM: Order cancelled - Patient discharged Performed By: #### L 100.0100, L500.2500 ####[facility] [address] [place], [address] eGFR Normal >60 [facility] Comment on above: Result Comment: Canc elled via OM: Order cancelled - Patient discharged Performed By: #### L 100.0100, L500.2500 ####[facility] [address] [place], [address] GAP Normal 5-15 [facility] Comment on above: Result Comment: Canc elled via OM: Order cancelled - Patient discharged Performed By: #### L 100.0100, L500.2500 ####[facility] [address] [place], [address] GLU Normal 70-99 [facility] Comment on above: Result Comment: Canc elled via OM: Order cancelled - Patient discharged Performed By: #### L 100.0100, L500.2500 ####[facility] [address] [place], [address] Potassium Normal 3.3-5.1 [facility] Comment on above: Result Comment: Canc elled via OM: Order cancelled - Patient discharged Performed By: #### L 100.0100, L500.2500 ####[facility] [address] [place], [address] Basic Metabolic Profile (BMP) Normal 133-145 [facility] Comment on above: Result Comment: Canc elled via OM: Order cancelled - Patient discharged Performed By: #### L 100.0100, L500.2500 ####[facility] [address] [place], [address] CBC W/Diff, Automatedon 06-2 0-2024 Absolute Neut Normal 2.0-7.7 [facility] Comment on above: Result Comment: Canc elled via OM: Order cancelled - Patient discharged Performed By: #### L 100.0100, L500.2500 ####[facility] [address] [place], [address] HCT Normal 40-54 [facility] Comment on above: Result Comment: Canc elled via OM: Order cancelled - Patient discharged Performed By: #### L 100.0100, L500.2500 ####[facility] [address] [place], [address] HGB Normal 13.0-16.5 [facility] Comment on above: Result Comment: Canc elled via OM: Order cancelled - Patient discharged Performed By: #### L 100.0100, L500.2500 ####[facility] [address] [place], [address] MCH Normal 27.0-32.0 [facility] Comment on above: Result Comment: Canc elled via OM: Order cancelled - Patient discharged Performed By: #### L 100.0100, L500.2500 ####[facility] [address] [place], [address] MCHC Normal 32-36 [facility] Comment on above: Result Comment: Canc elled via OM: Order cancelled - Patient discharged Performed By: #### L 100.0100, L500.2500 ####[facility] [address] [place], [address] MCV Normal 80-94 [facility] Comment on above: Result Comment: Canc elled via OM: Order cancelled - Patient discharged Performed By: #### L 100.0100, L500.2500 ####[facility] [address] [place], [address] NEUT% Normal 47-70 [facility] Comment on above: Result Comment: Canc elled via OM: Order cancelled - Patient discharged Performed By: #### L 100.0100, L500.2500 ####[facility] [address] [place], [address] PLT Normal 150-450 [facility] Comment on above: Result Comment: Canc elled via OM: Order cancelled - Patient discharged Performed By: #### L 100.0100, L500.2500 ####[facility] [address] [place], [address] RBC Normal 4.6-6.2 [facility] Comment on above: Result Comment: Canc elled via OM: Order cancelled - Patient discharged Performed By: #### L 100.0100, L500.2500 ####[facility] [address] [place], [address] RDW CV Normal 11.6-14.6 [facility] Comment on above: Result Comment: Canc elled via OM: Order cancelled - Patient discharged Performed By: #### L 100.0100, L500.2500 ####[facility] [address] [place], [address] RDW SD Normal 35.1-43.9 [facility] Comment on above: Result Comment: Canc elled via OM: Order cancelled - Patient discharged Performed By: #### L 100.0100, L500.2500 ####[facility] [address] [place], [address] WBC Normal 4.4-11.0 [facility] Comment on above: Result Comment: Canc elled via OM: Order cancelled - Patient discharged Performed By: #### L 100.0100, L500.2500 ####[facility] [address], [address] Absolute lymphocyte countOrd ered By: Le Wiggins on 11-01-2024 Lymphocytes Auto (Unsp spec) [#/Vol] 1.44 10*3/uL 0.83-4.51 [facility] Anion gap in Serum or Plasma Ordered By: Le Wiggins on 11-01-2024 Anion gap [Moles/Vol] 9 mmol/L 5- [facility] Automated lymphocyte count a s percentage of total leukocytesOrdered By: Le Wiggins on 11-01-2024 Lymphocytes/100 WBC Auto (Unsp spec) 19.0 % [facility] BUN/creatinine ratioOrdered By: Le Wiggins on 11-01-2024 Urea nitrogen/Creatinine [Mass ratio] 29.2 mg/mg High 10-20 [facility] Basic Metabolic Profile (BMP )on 11-01-2024 BUN/CRE 29.2 RATIO High - [facility] Comment on above: Performed By: #### L 500.2500, L100.0100 ####[facility] [address] [place], [address] Calcium [Mass/Vol] 8.7 mg/dL Normal 7.6-11.0 [facility] Comment on above: Performed By: #### L 500.2500, L100.0100 ####[facility] [address] [place], [address] Chloride [Moles/Vol] 92 mmol/L Low 98-108 [facility] Comment on above: Performed By: #### L 500.2500, L100.0100 ####[facility] [address] [place], [address] CO2 [Moles/Vol] 34.9 mmol/L High 21.0-32.0 [facility] Comment on above: Performed By: #### L 500.2500, L100.0100 ####[facility] [address] [place], [address] Creatinine [Mass/Vol] 0.71 mg/dL Normal 0.70-1.20 [facility] Comment on above: Performed By: #### L 500.2500, L100.0100 ####[facility] [address] [place], [address] ECRCL 153.76 ml/min Normal 50-250 [facility] Comment on above: Performed By: #### L 500.2500, L100.0100 ####[facility] [address] [place], [address] GAP 9 Normal 5-15 [facility] Comment on above: Performed By: #### L 500.2500, L100.0100 ####[facility] [address] [place], [address] GFR/1.73 sq M.predicted among non-blacks MDRD (S/P/Bld) [Vol rate/Area] 107 mL/min/{1.73_m2} Normal >60 [facility] Comment on above: Result Comment: mL/m in/1.73m2 CKD-EPI Creatinine Equation (2020) Performed By: #### L 500.2500, L100.0100 ####[facility] [address] [place], [address] Glucose [Mass/Vol] 152 mg/dL High 70-99 [facility] Comment on above: Performed By: #### L 500.2500, L100.0100 ####[facility] [address] [place], [address] Potassium [Moles/Vol] 3.8 mmol/L Normal 3.3-5.1 [facility] Comment on above: Performed By: #### L 500.2500, L100.0100 ####[facility] [address] [place], [address] Sodium [Moles/Vol] 136 mmol/L Normal 133-145 [facility] Comment on above: Performed By: #### L 500.2500, L100.0100 ####[facility] [address] [place], [address] Urea nitrogen [Mass/Vol] 21 mg/dL High 4-19 [facility] Comment on above: Performed By: #### L 500.2500, L100.0100 ####[facility] [address] [place], [address] Basophil percentageOrdered B y: Le Wiggins on 11-01-2024 Basophils/100 WBC (Bld) 0.4 % 0-1 [facility] Bedside Glucoseon 11-01-2024 FINGERSTICK GLU 192 mg/dL High 74-106 [facility] Comment on above: Result Comment: BILL GEMENT OF PATIENT CARE PER NURSING PROTOCOL Performed By: #### L 501.080 ####[facility] [address] [place], [address] FINGERSTICK GLU 189 mg/dL High 74-106 [facility] Comment on above: Result Comment: BILL GEMENT OF PATIENT CARE PER NURSING PROTOCOL Performed By: #### L 501.080 ####[facility] [address] [place], [address] FINGERSTICK GLU 209 mg/dL High 74-106 [facility] Comment on above: Result Comment: BILL GEMENT OF PATIENT CARE PER NURSING PROTOCOL Performed By: #### L 501.080 ####[facility] [address] [place], [address] FINGERSTICK GLU 200 mg/dL High 74-106 [facility] Comment on above: Result Comment: BILL GEMENT OF PATIENT CARE PER NURSING PROTOCOL Performed By: #### L 501.080 ####[facility] [address] [place], [address] CBC W/Diff, Automatedon - Absolute Lymph 1.44 X10 3/uL Normal 0.83-4.51 [facility] Comment on above: Performed By: #### L 500.2500, L100.0100 ####[facility] [address] [place], [address] Absolute Neut 4.9 X10 3/uL Normal 2.0-7.7 [facility] Comment on above: Performed By: #### L 500.2500, L100.0100 ####[facility] [address] [place], [address] Basophils/100 WBC (Bld) 0.4 % Normal 0-1 [facility] Comment on above: Performed By: #### L 500.2500, L100.0100 ####[facility] [address] [place], [address] Eosinophils/100 WBC (Bld) 4.0 % Normal 0-5 [facility] Comment on above: Performed By: #### L 500.2500, L100.0100 ####[facility] [address] [place], [address] Erythrocyte distribution width (RBC) [Ratio] 18.9 % High 11.6-14.6 [facility] Comment on above: Performed By: #### L 500.2500, L100.0100 ####[facility] [address] [place], [address] Hematocrit (Bld) [Volume fraction] 32.8 % Low 40-54 [facility] Comment on above: Performed By: #### L 500.2500, L100.0100 ####[facility] [address] [place], [address] Hemoglobin (Bld) [Mass/Vol] 9.1 g/dL Low 13.0-16.5 [facility] Comment on above: Performed By: #### L 500.2500, L100.0100 ####[facility] [address] [place], [address] IG% 0.400 Normal 0.0-0.9 [facility] Comment on above: Result Comment: IG% - Immature Granulocytes (promyelocytes, myelocytes andmetamyelocytes) > 1% indicates that a LEFT SHIFT is Present. Performed By: #### L 500.2500, L100.0100 ####[facility] [address] [place], [address] Lymphocytes/100 WBC (Bld) 19.0 % Normal 19-41 [facility] Comment on above: Performed By: #### L 500.2500, L100.0100 ####[facility] [address] [place], [address] MCH (RBC) [Entitic mass] 22.5 pg Low 27.0-32.0 [facility] Comment on above: Performed By: #### L 500.2500, L100.0100 ####[facility] [address] [place], [address] MCHC (RBC) [Mass/Vol] 27.7 g/dL Low 32-36 [facility] Comment on above: Performed By: #### L 500.2500, L100.0100 ####[facility] [address] [place], [address] MCV (RBC) [Entitic vol] 81.2 fL Normal 80-94 [facility] Comment on above: Performed By: #### L 500.2500, L100.0100 ####[facility] [address] [place], [address] Monocytes/100 WBC (Bld) 11.9 % High 0-10 [facility] Comment on above: Performed By: #### L 500.2500, L100.0100 ####[facility] [address] [place], [address] Neutrophils/100 WBC (Bld) 64.3 % Normal 47-70 [facility] Comment on above: Performed By: #### L 500.2500, L100.0100 ####[facility] [address] [place], [address] Nucleated RBC (Bld) [#/Vol] 0 10*3/uL Normal 0-5 [facility] Comment on above: Performed By: #### L 500.2500, L100.0100 ####[facility] [address] [place], [address] Platelet mean volume (Bld) [Entitic vol] 9.4 fL Normal 6.2-12.0 [facility] Comment on above: Performed By: #### L 500.2500, L100.0100 ####[facility] [address] [place], [address] Platelets (Bld) [#/Vol] 241 10*3/uL Normal 150-450 [facility] Comment on above: Performed By: #### L 500.2500, L100.0100 ####[facility] [address] [place], [address] RBC (Bld) [#/Vol] 4.04 10*6/uL Low 4.6-6.2 [facility] Comment on above: Performed By: #### L 500.2500, L100.0100 ####[facility] [address] [place], [address] RDW SD 54.4 fl High 35.1-43.9 [facility] Comment on above: Performed By: #### L 500.2500, L100.0100 ####[facility] [address] [place], [address] WBC (Bld) [#/Vol] 7.6 10*3/uL Normal 4.4-11.0 [facility] Comment on above: Performed By: #### L 500.2500, L100.0100 ####[facility] [address] [place], [address] Carbon dioxide, total [Moles /volume] in Central venous bloodOrdered By: Le Wiggins on 11-01-2024 CO2 [Moles/Vol] 34.9 mmol/L High 21.0-32.0 [facility] Chloride assayOrdered By: Maverick Wiggins on 11-01-2024 Chloride [Moles/Vol] 92 mmol/L Low 98-108 [facility] Consultation - Infectious Dx on 11-01-2024 Consultation - Infectious Dx Normal [facility] Eosinophil percentageOrdered By: Le Wiggins on 11-01-2024 Eosinophils/100 WBC (Bld) 4.0 % 0-5 [facility] Erythrocyte distribution wid th ratioOrdered By: Le Wiggins on 11-01-2024 Erythrocyte distribution width (RBC) [Ratio] 18.9 % High 11.6-14.6 [facility] Erythrocyte distribution wid th standard deviationOrdered By: Le Wiggins on 11-01-2024 Erythrocyte distribution width (RBC) [Ratio] 54.4 fl High 35.1-43.9 [facility] Glomerular filtration rate ( GFR) estimation/1.73 sq m using serum, plasma, or whole bOrdered By: Le Wiggins on 11-01-2024 GFR/1.73 sq M.predicted among non-blacks MDRD (S/P/Bld) [Vol rate/Area] 107 mL/min/{1.73_m2} >60 [facility] deOrdered By: Le Wiggins on 11-01-2024 Glucose [Mass/Vol] 189 mg/dL High 74-106 [facility] Glucose [Mass/Vol] 209 mg/dL High 74-106 [facility] Hematocrit Auto (Bld) [Volum e fraction]Ordered By: Le Wiggins on 11-01-2024 Hematocrit (Bld) [Volume fraction] 32.8 % Low 40-54 [facility] Hemoglobin measurementOrdere d By: Le Wiggins on 11-01-2024 Hemoglobin (Bld) [Mass/Vol] 9.1 g/dL Low 13.0-16.5 [facility] Immature granulocytes/100 WB C Auto (Bld)Ordered By: Le Wiggins on 11-01-2024 Immature granulocytes/100 WBC (Bld) 0.400 % 0.0-0.9 [facility] M8200.1000on 11-01-2024 M8200.1000 Normal Reference Ran ge = Negative MRSA DNA Nose Ql ABIGAIL+probe GeneXpert Instrument, PCR method MRSA PCR MRSA NEGATIVE Normal [facility] Comment on above: Performed By: #### M 8200.1000 ####[facility] [address] [place], [place], [id number] MCV (mean corpuscular volume ) determinationOrdered By: Le Wiggins on 11-01-2024 MCV (RBC) [Entitic vol] 81.2 fL 80-94 [facility] Mean corpuscular hemoglobin (MCH) determinationOrdered By: Le Wiggins on 11-01-2024 MCH (RBC) [Entitic mass] 22.5 pg Low 27.0-32.0 [facility] Monocyte percentageOrdered B y: Le Wiggins on 11-01-2024 Monocytes/100 WBC (Bld) 11.9 % High 0-10 [facility] Nasal methicillin resistant Staphylococcus aureus (MRSA) DNA detection by PCROrdered By: Minda Cm on 11-01-2024 MRSA DNA ABIGAIL+probe Ql (Nose) [facility] Neutrophil percentageOrdered By: Le Wiggins on 11-01-2024 Neutrophils/100 WBC (Bld) 64.3 % 47-70 [facility] Platelet countOrdered By: Maverick Wiggins on 11-01-2024 Platelets (Bld) [#/Vol] 241 10*3/uL 150-450 [facility] Potassium measurement (mass/ volume)Ordered By: Le Wiggins on 11-01-2024 Potassium (Unsp spec) [Mass/Vol] 3.8 mmol/L 3.3-5.1 [facility] RBC Auto (Bld) [#/Vol]Ordere d By: Le Wiggins on 11-01-2024 RBC (Bld) [#/Vol] 4.04 10*6/uL Low 4.6-6.2 [facility] Serum creatinine measurement (mass/volume)Ordered By: Le Wiggins on 11-01-2024 Creatinine [Mass/Vol] 0.71 mg/dL 0.70-1.20 [facility] Serum glucose measurement (m ass/volume)Ordered By: Le Wiggins on 11-01-2024 Glucose [Mass/Vol] 152 mg/dL High 70-99 [facility] Serum or plasma calcium sarah urement (mass/volume)Ordered By: Le Wiggins on 11-01-2024 Calcium [Mass/Vol] 8.7 mg/dL 7.6-11.0 [facility] Serum or plasma urea nitroge n measurement (mass/volume)Ordered By: Le Wiggins on 11-01-2024 Urea nitrogen [Mass/Vol] 21 mg/dL High 4-19 [facility] Sodium levelOrdered By: Soni Wiggins on 11-01-2024 Sodium [Moles/Vol] 136 mmol/L 133-145 [facility] Trough vancomycin levelOrder ed By: Maurizio Parra on 11-01-2024 Vancomycin trough [Mass/Vol] 19.4 ug/mL High 5.0-15.0 [facility] Urine Cultureon 11-01-2024 URC Normal [facility] Comment on above: Performed By: #### M 100.2200, M100.678, L400.0001 ####[facility] [address] [place], [place], [id number] Vancomycin, Trough Levelon 0 11-01-2024 VANCO, TROUGH 19.4 ug/mL High 5.0-15.0 [facility] Comment on above: Order Comment: Comme nts: Trough to be drawn 30 mins prior to scheduled [id number] Result Comment: Juan mmended goal trough ranges are generally 10-15 mcg/mlfor less severe/complicated infections such as cellulitisor UTI and 15-20 mcg/ml for more severe/complicatedinfections such as bacteremia/sepsis, osteomyelitis,pneumonia or meningitis. Goal trough ranges should takeinto account indication, patient-specific factors andorganism OCTAVIO.VANCOMYCIN STANDARED DRUG THERAPY TROUGH LEVEL: 5.0 - 15.0 mg/LVANCOMYCIN HIGH INTENSITY THERAPY TROUGH LEVEL: 15.0 - 20.0 mg/LHigh Intensity therapy recommended for serious lifethreatening infections include:- Vcimkbvtdh-Ewarxilpfvkc-Okcthtcro (Ventilator/Healtcare Associated)-SepsisPLEASE CONTACT PHARMACY SERVICES (#4376) FOR INTERPRETATIONOF RESULTS. Performed By: #### L 501.8820 ####[facility] [address] [place], [address] White blood cell (WBC) count Ordered By: Le Wiggins on 11-01-2024 WBC (Bld) [#/Vol] 7.6 10*3/uL 4.4-11.0 [facility] Basic Metabolic Profile (BMP )on 10-31-2024 BUN/CRE 26.8 RATIO High 10-20 [facility] Comment on above: Performed By: #### L 100.0100, L500.2500 ####[facility] [address] [place], [address] Calcium [Mass/Vol] 8.7 mg/dL Normal 7.6-11.0 [facility] Comment on above: Performed By: #### L 100.0100, L500.2500 ####[facility] [address] [place], [address] Chloride [Moles/Vol] 93 mmol/L Low 98-108 [facility] Comment on above: Performed By: #### L 100.0100, L500.2500 ####[facility] [address] [place], [address] CO2 [Moles/Vol] 36.7 mmol/L High 21.0-32.0 [facility] Comment on above: Performed By: #### L 100.0100, L500.2500 ####[facility] [address] [place], [address] Creatinine [Mass/Vol] 0.64 mg/dL Low 0.70-1.20 [facility] Comment on above: Performed By: #### L 100.0100, L500.2500 ####[facility] [address] [place], [address] ECRCL 170.58 ml/min Normal 50-250 [facility] Comment on above: Performed By: #### L 100.0100, L500.2500 ####[facility] [address] [place], [address] GAP 8 Normal 5-15 [facility] Comment on above: Performed By: #### L 100.0100, L500.2500 ####[facility] [address] [place], [address] GFR/1.73 sq M.predicted among non-blacks MDRD (S/P/Bld) [Vol rate/Area] 111 mL/min/{1.73_m2} Normal >60 [facility] Comment on above: Result Comment: mL/m in/1.73m2 CKD-EPI Creatinine Equation (2020) Performed By: #### L 100.0100, L500.2500 ####[facility] [address] [place], [address] Glucose [Mass/Vol] 177 mg/dL High 70-99 [facility] Comment on above: Performed By: #### L 100.0100, L500.2500 ####[facility] [address] [place], [address] Potassium [Moles/Vol] 3.9 mmol/L Normal 3.3-5.1 [facility] Comment on above: Performed By: #### L 100.0100, L500.2500 ####[facility] [address] [place], [address] Sodium [Moles/Vol] 138 mmol/L Normal 133-145 [facility] Comment on above: Performed By: #### L 100.0100, L500.2500 ####[facility] [address] [place], [address] Urea nitrogen [Mass/Vol] 17 mg/dL Normal 4-19 [facility] Comment on above: Performed By: #### L 100.0100, L500.2500 ####[facility] [address] [place], [address] Bedside Glucoseon --2024 FINGERSTICK GLU 169 mg/dL High 74-106 [facility] Comment on above: Result Comment: BILL GEMENT OF PATIENT CARE PER NURSING PROTOCOL Performed By: #### L 501.080 ####[facility] [address] [place], [address] FINGERSTICK GLU 171 mg/dL High [facility]106 [facility] Comment on above: Result Comment: BILL GEMENT OF PATIENT CARE PER NURSING PROTOCOL Performed By: #### L 501.080 ####[facility] [address] [place], [address] FINGERSTICK GLU 180 mg/dL High 74-106 [facility] Comment on above: Result Comment: BILL GEMENT OF PATIENT CARE PER NURSING PROTOCOL Performed By: #### L 501.080 ####[facility] [address] [place], [address] FINGERSTICK GLU 171 mg/dL High 74-106 [facility] Comment on above: Result Comment: BILL GEMENT OF PATIENT CARE PER NURSING PROTOCOL Performed By: #### L 501.080 ####[facility] [address] [place], [address] FINGERSTICK GLU 150 mg/dL High -106 [facility] Comment on above: Result Comment: BILL GEMENT OF PATIENT CARE PER NURSING PROTOCOL Performed By: #### L 501.080 ####[facility] [address] [place], [address] CBC W/Diff, Automatedon 06- Absolute Lymph 1.18 X10 3/uL Normal 0.83-4.51 [facility] Comment on above: Performed By: #### L 100.0100, L500.2500 ####[facility] [address] [place], [address] Absolute Neut 5.0 X10 3/uL Normal 2.0-7.7 [facility] Comment on above: Performed By: #### L 100.0100, L500.2500 ####[facility] [address] [place], [address] Basophils/100 WBC (Bld) 0.6 % Normal 0-1 [facility] Comment on above: Performed By: #### L 100.0100, L500.2500 ####[facility] [address] [place], [address] Eosinophils/100 WBC (Bld) 3.1 % Normal 0-5 [facility] Comment on above: Performed By: #### L 100.0100, L500.2500 ####[facility] [address] [place], [address] Erythrocyte distribution width (RBC) [Ratio] 18.8 % High 11.6-14.6 [facility] Comment on above: Performed By: #### L 100.0100, L500.2500 ####[facility] [address] [place], [address] Hematocrit (Bld) [Volume fraction] 32.1 % Low 40-54 [facility] Comment on above: Performed By: #### L 100.0100, L500.2500 ####[facility] [address] [place], [address] Hemoglobin (Bld) [Mass/Vol] 8.7 g/dL Low 13.0-16.5 [facility] Comment on above: Performed By: #### L 100.0100, L500.2500 ####[facility] [address] [place], [address] IG% 0.400 Normal 0.0-0.9 [facility] Comment on above: Result Comment: IG% - Immature Granulocytes (promyelocytes, myelocytes andmetamyelocytes) > 1% indicates that a LEFT SHIFT is Present. Performed By: #### L 100.0100, L500.2500 ####[facility] [address] [place], [address] Lymphocytes/100 WBC (Bld) 16.4 % Low 19-41 [facility] Comment on above: Performed By: #### L 100.0100, L500.2500 ####[facility] [address] [place], [address] MCH (RBC) [Entitic mass] 22.1 pg Low 27.0-32.0 [facility] Comment on above: Performed By: #### L 100.0100, L500.2500 ####[facility] [address] [place], [address] MCHC (RBC) [Mass/Vol] 27.1 g/dL Low 32-36 [facility] Comment on above: Performed By: #### L 100.0100, L500.2500 ####[facility] [address] [place], [address] MCV (RBC) [Entitic vol] 81.7 fL Normal 80-94 [facility] Comment on above: Performed By: #### L 100.0100, L500.2500 ####[facility] [address] [place], [address] Monocytes/100 WBC (Bld) 9.9 % Normal 0-10 [facility] Comment on above: Performed By: #### L 100.0100, L500.2500 ####[facility] [address] [place], [address] Neutrophils/100 WBC (Bld) 69.6 % Normal 47-70 [facility] Comment on above: Performed By: #### L 100.0100, L500.2500 ####[facility] [address] [place], [address] Nucleated RBC (Bld) [#/Vol] 0 10*3/uL Normal 0-5 [facility] Comment on above: Performed By: #### L 100.0100, L500.2500 ####[facility] [address] [place], [address] Platelet mean volume (Bld) [Entitic vol] 9.6 fL Normal 6.2-12.0 [facility] Comment on above: Performed By: #### L 100.0100, L500.2500 ####[facility] [address] [place], [address] Platelets (Bld) [#/Vol] 251 10*3/uL Normal 150-450 [facility] Comment on above: Performed By: #### L 100.0100, L500.2500 ####[facility] [address] [place], [address] RBC (Bld) [#/Vol] 3.93 10*6/uL Low 4.6-6.2 [facility] Comment on above: Performed By: #### L 100.0100, L500.2500 ####[facility] [address] [place], [address] RDW SD 55.4 fl High 35.1-43.9 [facility] Comment on above: Performed By: #### L 100.0100, L500.2500 ####[facility] [address] [place], [address] WBC (Bld) [#/Vol] 7.2 10*3/uL Normal 4.4-11.0 [facility] Comment on above: Performed By: #### L 100.0100, L500.2500 ####[facility] [address] [place], [address] Modified Barium Swallow Stud yon 10-31-2024 Modified Barium Swallow Study Normal [facility] Respiratory Cultureon 2024 RESPC List Antibiotics Las t 48 Hours? vancomycin; zosyn List Antibiotics to be Started? vancomycin; zosyn Mixed normal respiratory beverly. No Streptococcus pneumoniae, beta-hemolytic Streptococcus or Staphylococcus aureus isolated. Normal [facility] Comment on above: Performed By: #### M 100.2000, M100.2400 ####[facility] [address] [place], [address] Serum or plasma vancomycin m easurement (mass/volume)Ordered By: Maurizio Parra on 10-31-2024 Vancomycin [Mass/Vol] 13.6 ug/mL 0.0-15.0 [facility] Vancomycin, Random Levelon 0 10-31-2024 VANCO, RANDOM 13.6 ug/mL Normal 0.0-15.0 [facility] Comment on above: Result Comment: VANC OMYCIN STANDARD DRUG THERAPY: CRITICAL VALUE IS > 15.0 mg/LVANCOMYCIN HIGH INTENSITY THERAPY: CRITICAL VALUE IS > 20.0 mg/LPLEASE CONTACT PHARMACY SERVICES (#9392) FOR INTERPRETATIONOF RESULTS. THIS RESULT DOES NOT REPRESENT A PEAK OR TROUGHLEVEL FOR THIS DRUG. Performed By: #### L 501.8850 ####[facility] [address] [place], [address] Basic Metabolic Profile (BMP )on 10-30-2024 BUN/CRE 35.1 RATIO High 10-20 [facility] Comment on above: Performed By: #### L 500.2500, L100.0500 ####[facility] [address] [place], [address] Calcium [Mass/Vol] 8.4 mg/dL Normal 7.6-11.0 [facility] Comment on above: Performed By: #### L 500.2500, L100.0500 ####[facility] [address] [place], [address] Chloride [Moles/Vol] 94 mmol/L Low 98-108 [facility] Comment on above: Performed By: #### L 500.2500, L100.0500 ####[facility] [address], [address] CO2 [Moles/Vol] 36.2 mmol/L High 21.0-32.0 [facility] Comment on above: Performed By: #### L 500.2500, L100.0500 ####[facility] [address] [place], [address] Creatinine [Mass/Vol] 0.56 mg/dL Low 0.70-1.20 [facility] Comment on above: Performed By: #### L 500.2500, L100.0500 ####[facility] [address] [place], [address] ECRCL 194.94 ml/min Normal 50-250 [facility] Comment on above: Performed By: #### L 500.2500, L100.0500 ####[facility] [address] [place], [address] GAP 9 Normal 5-15 [facility] Comment on above: Performed By: #### L 500.2500, L100.0500 ####[facility] [address] [place], [address] GFR/1.73 sq M.predicted among non-blacks MDRD (S/P/Bld) [Vol rate/Area] 115 mL/min/{1.73_m2} Normal >60 [facility] Comment on above: Result Comment: mL/m in/1.73m2 CKD-EPI Creatinine Equation (2020) Performed By: #### L 500.2500, L100.0500 ####[facility] [address] [place], [address] Glucose [Mass/Vol] 130 mg/dL High 70-99 [facility] Comment on above: Performed By: #### L 500.2500, L100.0500 ####[facility] [address] [place], [address] Potassium [Moles/Vol] 3.8 mmol/L Normal 3.3-5.1 [facility] Comment on above: Performed By: #### L 500.2500, L100.0500 ####[facility] [address] [place], [address] Sodium [Moles/Vol] 139 mmol/L Normal 133-145 [facility] Comment on above: Performed By: #### L 500.2500, L100.0500 ####[facility] [address] [place], [address] Urea nitrogen [Mass/Vol] 20 mg/dL High 4-19 [facility] Comment on above: Performed By: #### L 500.2500, L100.0500 ####[facility] [address] [place], [address] Bedside Glucoseon 10-30-2024 FINGERSTICK GLU 169 mg/dL High 74-106 [facility] Comment on above: Result Comment: BILL GEMENT OF PATIENT CARE PER NURSING PROTOCOL Performed By: #### L 501.080 ####[facility] [address] [place], [address] FINGERSTICK GLU 188 mg/dL High 74-106 [facility] Comment on above: Result Comment: BILL GEMENT OF PATIENT CARE PER NURSING PROTOCOL Performed By: #### L 501.080 ####[facility] [address] [place], [address] FINGERSTICK GLU 112 mg/dL High 74-106 [facility] Comment on above: Result Comment: BILL GEMENT OF PATIENT CARE PER NURSING PROTOCOL Performed By: #### L 501.080 ####[facility] [address] [place], [address] CBC-Complete Blood Cnt No Jesica bishop 10-30-2024 Erythrocyte distribution width (RBC) [Ratio] 18.8 % High 11.6-14.6 [facility] Comment on above: Performed By: #### L 500.2500, L100.0500 ####[facility] [address] [place], [address] Hematocrit (Bld) [Volume fraction] 30.8 % Low 40-54 [facility] Comment on above: Performed By: #### L 500.2500, L100.0500 ####[facility] [address] [place], [address] Hemoglobin (Bld) [Mass/Vol] 8.4 g/dL Low 13.0-16.5 [facility] Comment on above: Performed By: #### L 500.2500, L100.0500 ####[facility] [address] [place], [address] MCH (RBC) [Entitic mass] 22.3 pg Low 27.0-32.0 [facility] Comment on above: Performed By: #### L 500.2500, L100.0500 ####[facility] [address] [place], [address] MCHC (RBC) [Mass/Vol] 27.3 g/dL Low 32-36 [facility] Comment on above: Performed By: #### L 500.2500, L100.0500 ####[facility] [address] [place], [address] MCV (RBC) [Entitic vol] 81.7 fL Normal 80-94 [facility] Comment on above: Performed By: #### L 500.2500, L100.0500 ####[facility] [address] [place], [address] Platelet mean volume (Bld) [Entitic vol] 9.7 fL Normal 6.2-12.0 [facility] Comment on above: Performed By: #### L 500.2500, L100.0500 ####[facility] [address] [place], [address] Platelets (Bld) [#/Vol] 232 10*3/uL Normal 150-450 [facility] Comment on above: Performed By: #### L 500.2500, L100.0500 ####[facility] [address] [place], [address] RBC (Bld) [#/Vol] 3.77 10*6/uL Low 4.6-6.2 [facility] Comment on above: Performed By: #### L 500.2500, L100.0500 ####[facility] [address] [place], [address] RDW SD 54.3 fl High 35.1-43.9 [facility] Comment on above: Performed By: #### L 500.2500, L100.0500 ####[facility] [address] [place], [address] WBC (Bld) [#/Vol] 7.6 10*3/uL Normal 4.4-11.0 [facility] Comment on above: Performed By: #### L 500.2500, L100.0500 ####[facility] [address] [place], [address] Consultation - Intensiviston 10-30-2024 Consultation - Box Feeder Normal [facility] Electrocardiogram reportOrde red By: Lzaarus Rojo on 10-30-2024 EKG study [facility] Other Phone: Gram Stainon 10-30-2024 GS List Antibiotics Las t 48 Hours? vancomycin; zosyn List Antibiotics to be Started? vancomycin; zosyn Acceptable Specimen? Yes (<25 Epithelial cells per/lpf) Gram Stain 3+ Gram positive rods 1+ White Blood Cells No Epithelial cells Normal [facility] Comment on above: Performed By: #### M 100.2000, M100.2400 ####[facility] [address] [place], [place], [address] Vancomycin, Trough Levelon 0 - VANCO, TROUGH 28.8 ug/mL High 5.0-15.0 [facility] Comment on above: Order Comment: 1400 Result Comment: Juan mmended goal trough ranges are generally 10-15 mcg/mlfor less severe/complicated infections such as cellulitisor UTI and 15-20 mcg/ml for more severe/complicatedinfections such as bacteremia/sepsis, osteomyelitis,pneumonia or meningitis. Goal trough ranges should takeinto account indication, patient-specific factors andorganism OCTAVIO.VANCOMYCIN STANDARED DRUG THERAPY TROUGH LEVEL: 5.0 - 15.0 mg/LVANCOMYCIN HIGH INTENSITY THERAPY TROUGH LEVEL: 15.0 - 20.0 mg/LHigh Intensity therapy recommended for serious lifethreatening infections include:- Xwurangeup-Gpwlwmawsvnz-Uujncokmk (Ventilator/Healtcare Associated)-SepsisPLEASE CONTACT PHARMACY SERVICES (#9930) FOR INTERPRETATIONOF RESULTS. Performed By: #### L 501.8820 ####[facility] [address] [place], [address] 12 Lead EKGon 10-29-2024 12 Lead EKG Normal [facility] Absolute lymphocyte countOrd ered By: Ibrahima Kolb on 10-29-2024 Lymphocytes Auto (Unsp spec) [#/Vol] 1.79 10*3/uL 0.83-4.51 [facility] Absolute lymphocyte countOrd ered By: Rocio Bartlett on 10-29-2024 Lymphocytes Auto (Unsp spec) [#/Vol] 2.00 10*3/uL 0.83-4.51 [facility] Activated partial thrombopla stin time (aPTT) in platelet poor plasma by coagulation aOrdered By: Ibrahima Kolb on 10-29-2024 aPTT Coag (PPP) [Time] 33.6 s 24.1-36.2 [facility] Anion gap in Serum or Plasma Ordered By: Ibrahima Kolb on 10-29-2024 Anion gap [Moles/Vol] 8 mmol/L 5-15 [facility] Anion gap in Serum or Plasma Ordered By: Rocio Bartlett on 10-29-2024 Anion gap [Moles/Vol] 10 mmol/L 09-27 [facility] Automated lymphocyte count a s percentage of total leukocytesOrdered By: Ibrahima Kolb on 10-29-2024 Lymphocytes/100 WBC Auto (Unsp spec) 20.8 % [facility] Automated lymphocyte count a s percentage of total leukocytesOrdered By: Rocio Bartlett on 10-29-2024 Lymphocytes/100 WBC Auto (Unsp spec) 22.9 % [facility] BUN/creatinine ratioOrdered By: Ibrahima Kolb on 10-29-2024 Urea nitrogen/Creatinine [Mass ratio] 34.7 mg/mg High 03-04 [facility] BUN/creatinine ratioOrdered By: Rocio Bartlett on 10-29-2024 Urea nitrogen/Creatinine [Mass ratio] 27.8 mg/mg High 03-04 [facility] Basophil percentageOrdered B y: Ibrahima Kolb on 10-29-2024 Basophils/100 WBC (Bld) 0.5 % 0-1 [facility] Basophil percentageOrdered B y: Rocio Bartlett on 10-29-2024 Basophils/100 WBC (Bld) 0.6 % 0-1 [facility] Bedside Glucoseon 10-29-2024 FINGERSTICK GLU 114 mg/dL High 74-106 [facility] Comment on above: Result Comment: BILL WOODARDENT OF PATIENT CARE PER NURSING PROTOCOL Performed By: #### L 501.080 ####[facility] [address] [facility] [address] FINGERSTICK GLU 116 mg/dL High 74-106 [facility] Comment on above: Result Comment: BILL GEMENT OF PATIENT CARE PER NURSING PROTOCOL Performed By: #### L 501.080 ####[facility] [address] [place], [address] FINGERSTICK GLU 123 mg/dL High 74-106 [facility] Comment on above: Result Comment: Dr O rders FollowedMANAGEMENT OF PATIENT CARE PER NURSING PROTOCOL Performed By: #### L 501.080 ####[facility] [address] [place], [address] Bilirubin Test strip Ql (U)O rdered By: Ibrahima Kolb on 10-29-2024 Bilirubin Ql (U) Negative Negative [facility] Bilirubin, totalOrdered By: Ibrahima Kolb on 10-29-2024 Bilirubin [Mass/Vol] 0.39 mg/dL 0.00-1.30 [facility] Blood Gases by CPSon 025 Base excess Calc (Bld) [Moles/Vol] 12 mmol/L High -2 to +2 [facility] Comment on above: Performed By: #### L 9000.0800 ####[facility] [address] [place], [address] Blood Gas Type ART Normal [facility] Comment on above: Performed By: #### L 9000.0800 ####[facility] [address] [place], [address] CO2 [Moles/Vol] 39 mmol/L Normal [facility] Comment on above: Performed By: #### L 9000.0800 ####[facility] [address] [place], [address] FI02 8.0 Normal [facility] Comment on above: Performed By: #### L 9000.0800 ####[facility] [address] [place], [address] HCO3 (Bld) [Moles/Vol] 37.2 mmol/L High 22-26 [facility] Comment on above: Performed By: #### L 9000.0800 ####[facility] [address] [place], [address] Mode Not entered Normal [facility] Comment on above: Performed By: #### L 9000.0800 ####[facility] [address] [place], [address] O2 Delivery Dev Cannula Normal [facility] Comment on above: Performed By: #### L 9000.0800 ####[facility] [address] [place], [address] pCO2 66.8 mmHg High 35-45 [facility] Comment on above: Performed By: #### L 9000.0800 ####[facility] [address] [place], [address] pH (Bld) 7.35 [pH] Normal 7.35-7.45 [facility] Comment on above: Performed By: #### L 9000.0800 ####[facility] [address] [place], [address] PO2 61 mmHG Low 75-100 [facility] Comment on above: Performed By: #### L 9000.0800 ####[facility] [address] [place], [address] SITE R Brach Normal [facility] Comment on above: Performed By: #### L 9000.0800 ####[facility] [address] [place], [address] SO2 89 Low 95-99 [facility] Comment on above: Performed By: #### L 9000.0800 ####[facility] [address] [place], [address] Blood base excess determinat ionOrdered By: ED PROVIDER on 10-29-2024 Base excess Calc (BldV) [Moles/Vol] 12 mmol/L High -2-2 [facility] Blood bicarbonate measuremen tOrdered By: ED PROVIDER on 10-29-2024 HCO3 (Bld) [Moles/Vol] 37.2 mmol/L High 22-26 [facility] Blood cultureOrdered By: Blaine Kolb on 10-29-2024 Bacteria identified Cx Nom (Bld) No growth in 5 days. [facility] Bacteria identified Cx Nom (Bld) No growth in 5 days. [facility] CBC W/Diff, Automatedon 06-05 21-2024 Absolute Lymph 1.79 X10 3/uL Normal 0.83-4.51 [facility] Comment on above: Performed By: #### L 300.3900, L501.4021, M200.1000, L503.7505, L300.4310, L500.4050, L503.6005, L100.0100 ####[facility] [address] [place], [address] Absolute Neut 5.7 X10 3/uL Normal 2.0-7.7 [facility] Comment on above: Performed By: #### L 300.3900, L501.4021, M200.1000, L503.7505, L300.4310, L500.4050, L503.6005, L100.0100 ####[facility] [address] [place], [address] Basophils/100 WBC (Bld) 0.5 % Normal 0-1 [facility] Comment on above: Performed By: #### L 300.3900, L501.4021, M200.1000, L503.7505, L300.4310, L500.4050, L503.6005, L100.0100 ####[facility] [address] [place], [address] Eosinophils/100 WBC (Bld) 3.5 % Normal 0-5 [facility] Comment on above: Performed By: #### L 300.3900, L501.4021, M200.1000, L503.7505, L300.4310, L500.4050, L503.6005, L100.0100 ####[facility] [address] [place], [address] Erythrocyte distribution width (RBC) [Ratio] 18.5 % High 11.6-14.6 [facility] Comment on above: Performed By: #### L 300.3900, L501.4021, M200.1000, L503.7505, L300.4310, L500.4050, L503.6005, L100.0100 ####[facility] [address] [place], [address] Hematocrit (Bld) [Volume fraction] 32.7 % Low 40-54 [facility] Comment on above: Performed By: #### L 300.3900, L501.4021, M200.1000, L503.7505, L300.4310, L500.4050, L503.6005, L100.0100 ####[facility] [address], [address] Hemoglobin (Bld) [Mass/Vol] 9.2 g/dL Low 13.0-16.5 [facility] Comment on above: Performed By: #### L 300.3900, L501.4021, M200.1000, L503.7505, L300.4310, L500.4050, L503.6005, L100.0100 ####[facility] [address] [place], [address] IG% 0.300 Normal 0.0-0.9 [facility] Comment on above: Result Comment: IG% - Immature Granulocytes (promyelocytes, myelocytes andmetamyelocytes) > 1% indicates that a LEFT SHIFT is Present. Performed By: #### L 300.3900, L501.4021, M200.1000, L503.7505, L300.4310, L500.4050, L503.6005, L100.0100 ####[facility] [address] [place], [address] Lymphocytes/100 WBC (Bld) 20.8 % Normal 19-41 [facility] Comment on above: Performed By: #### L 300.3900, L501.4021, M200.1000, L503.7505, L300.4310, L500.4050, L503.6005, L100.0100 ####[facility] [address] [place], [address] MCH (RBC) [Entitic mass] 23.4 pg Low 27.0-32.0 [facility] Comment on above: Performed By: #### L 300.3900, L501.4021, M200.1000, L503.7505, L300.4310, L500.4050, L503.6005, L100.0100 ####[facility] [address] [place], [address] MCHC (RBC) [Mass/Vol] 28.1 g/dL Low 32-36 [facility] Comment on above: Performed By: #### L 300.3900, L501.4021, M200.1000, L503.7505, L300.4310, L500.4050, L503.6005, L100.0100 ####[facility] [address] [place], [address] MCV (RBC) [Entitic vol] 83.0 fL Normal 80-94 [facility] Comment on above: Performed By: #### L 300.3900, L501.4021, M200.1000, L503.7505, L300.4310, L500.4050, L503.6005, L100.0100 ####[facility] [address] [place], [address] Monocytes/100 WBC (Bld) 9.3 % Normal 0-10 [facility] Comment on above: Performed By: #### L 300.3900, L501.4021, M200.1000, L503.7505, L300.4310, L500.4050, L503.6005, L100.0100 ####[facility] [address] [place], [address] Neutrophils/100 WBC (Bld) 65.6 % Normal 47-70 [facility] Comment on above: Performed By: #### L 300.3900, L501.4021, M200.1000, L503.7505, L300.4310, L500.4050, L503.6005, L100.0100 ####[facility] [address] [place], [address] Nucleated RBC (Bld) [#/Vol] 0 10*3/uL Normal 0-5 [facility] Comment on above: Performed By: #### L 300.3900, L501.4021, M200.1000, L503.7505, L300.4310, L500.4050, L503.6005, L100.0100 ####[facility] [address] [place], [address] Platelet mean volume (Bld) [Entitic vol] 9.8 fL Normal 6.2-12.0 [facility] Comment on above: Performed By: #### L 300.3900, L501.4021, M200.1000, L503.7505, L300.4310, L500.4050, L503.6005, L100.0100 ####[facility] [address] [place], [address] Platelets (Bld) [#/Vol] 264 10*3/uL Normal 150-450 [facility] Comment on above: Performed By: #### L 300.3900, L501.4021, M200.1000, L503.7505, L300.4310, L500.4050, L503.6005, L100.0100 ####[facility] [address] [place], [address] RBC (Bld) [#/Vol] 3.94 10*6/uL Low 4.6-6.2 [facility] Comment on above: Performed By: #### L 300.3900, L501.4021, M200.1000, L503.7505, L300.4310, L500.4050, L503.6005, L100.0100 ####[facility] [address] [place], [place], [id number] RDW SD 53.9 fl High 35.1-43.9 [facility] Comment on above: Performed By: #### L 300.3900, L501.4021, M200.1000, L503.7505, L300.4310, L500.4050, L503.6005, L100.0100 ####[facility] [address] [place], [place], [id number] WBC (Bld) [#/Vol] 8.6 10*3/uL Normal 4.4-11.0 [facility] Comment on above: Performed By: #### L 300.3900, L501.4021, M200.1000, L503.7505, L300.4310, L500.4050, L503.6005, L100.0100 ####[facility] [address] [place], [place], [id number] Carbon dioxide, total [Moles /volume] in Central venous bloodOrdered By: Ibrahima Kolb on 10-29-2024 CO2 [Moles/Vol] 38.9 mmol/L High 21.0-32.0 [facility] Carbon dioxide, total [Moles /volume] in Central venous bloodOrdered By: Rocio Bartlett on 10-29-2024 CO2 [Moles/Vol] 31.9 mmol/L 21.0-32.0 [facility] Chest PA and Lateralon 10-29 Chest PA and Lateral Normal [facility] Chest without Contraston Chest without Contrast Normal [facility] Chloride assayOrdered By: Sohail Kolb on 10-29-2024 Chloride [Moles/Vol] 92 mmol/L Low 98-108 [facility] Chloride assayOrdered By: Coretta Bartlett on 10-29-2024 Chloride [Moles/Vol] 96 mmol/L Low 98-108 [facility] Comprehensive Metabolic Prof ilon 10-29-2024 Albumin [Mass/Vol] 3.6 g/dL Normal 3.5-5.0 [facility] Comment on above: Performed By: #### L 300.3900, L501.4021, M200.1000, L503.7505, L300.4310, L500.4050, L503.6005, L100.0100 ####[facility] [address] [place], [address] Albumin/Globulin [Mass ratio] 0.9 {ratio} Normal 0.9-2.4 [facility] Comment on above: Performed By: #### L 300.3900, L501.4021, M200.1000, L503.7505, L300.4310, L500.4050, L503.6005, L100.0100 ####[facility] [address] [place], [address] ALK PHOS 81 U/L Normal 40-129 [facility] Comment on above: Performed By: #### L 300.3900, L501.4021, M200.1000, L503.7505, L300.4310, L500.4050, L503.6005, L100.0100 ####[facility] [address] [place], [address] ALT [Catalytic activity/Vol] 14 U/L Normal <=46 [facility] Comment on above: Performed By: #### L 300.3900, L501.4021, M200.1000, L503.7505, L300.4310, L500.4050, L503.6005, L100.0100 ####[facility] [address] [place], [address] AST [Catalytic activity/Vol] 19 U/L Normal <=37 [facility] Comment on above: Performed By: #### L 300.3900, L501.4021, M200.1000, L503.7505, L300.4310, L500.4050, L503.6005, L100.0100 ####[facility] [address] [place], [address] Bilirubin [Mass/Vol] 0.39 mg/dL Normal 0.00-1.30 [facility] Comment on above: Performed By: #### L 300.3900, L501.4021, M200.1000, L503.7505, L300.4310, L500.4050, L503.6005, L100.0100 ####[facility] [address] [place], [address] BUN/CRE 34.7 RATIO High 10-20 [facility] Comment on above: Performed By: #### L 300.3900, L501.4021, M200.1000, L503.7505, L300.4310, L500.4050, L503.6005, L100.0100 ####[facility] [address] [place], [address] Calcium [Mass/Vol] 8.7 mg/dL Normal 7.6-11.0 [facility] Comment on above: Performed By: #### L 300.3900, L501.4021, M200.1000, L503.7505, L300.4310, L500.4050, L503.6005, L100.0100 ####[facility] [address] [place], [address] Chloride [Moles/Vol] 92 mmol/L Low 98-108 [facility] Comment on above: Performed By: #### L 300.3900, L501.4021, M200.1000, L503.7505, L300.4310, L500.4050, L503.6005, L100.0100 ####[facility] [address] [place], [address] CO2 [Moles/Vol] 38.9 mmol/L High 21.0-32.0 [facility] Comment on above: Performed By: #### L 300.3900, L501.4021, M200.1000, L503.7505, L300.4310, L500.4050, L503.6005, L100.0100 ####[facility] [address] [place], [address] Creatinine [Mass/Vol] 0.69 mg/dL Low 0.70-1.20 [facility] Comment on above: Performed By: #### L 300.3900, L501.4021, M200.1000, L503.7505, L300.4310, L500.4050, L503.6005, L100.0100 ####[facility] [address] [place], [address] ECRCL 165.16 ml/min Normal 50-250 [facility] Comment on above: Performed By: #### L 300.3900, L501.4021, M200.1000, L503.7505, L300.4310, L500.4050, L503.6005, L100.0100 ####[facility] [address] [place], [place], [id number](597) GAP 8 Normal 5-15 [facility] Comment on above: Performed By: #### L 300.3900, L501.4021, M200.1000, L503.7505, L300.4310, L500.4050, L503.6005, L100.0100 ####[facility] [address] [place], [address] GFR/1.73 sq M.predicted among non-blacks MDRD (S/P/Bld) [Vol rate/Area] 108 mL/min/{1.73_m2} Normal >60 [facility] Comment on above: Result Comment: mL/m in/1.73m2 CKD-EPI Creatinine Equation (2020) Performed By: #### L 300.3900, L501.4021, M200.1000, L503.7505, L300.4310, L500.4050, L503.6005, L100.0100 ####[facility] [address] [place], [address] Globulin (S) [Mass/Vol] 4.2 g/dL Normal 2.2-4.2 [facility] Comment on above: Performed By: #### L 300.3900, L501.4021, M200.1000, L503.7505, L300.4310, L500.4050, L503.6005, L100.0100 ####[facility] [address] [place], [address] Glucose [Mass/Vol] 237 mg/dL High 70-99 [facility] Comment on above: Performed By: #### L 300.3900, L501.4021, M200.1000, L503.7505, L300.4310, L500.4050, L503.6005, L100.0100 ####[facility] [address] [place], [address] Potassium [Moles/Vol] 4.1 mmol/L Normal 3.3-5.1 [facility] Comment on above: Performed By: #### L 300.3900, L501.4021, M200.1000, L503.7505, L300.4310, L500.4050, L503.6005, L100.0100 ####[facility] [address] [place], [address] Sodium [Moles/Vol] 139 mmol/L Normal 133-145 [facility] Comment on above: Performed By: #### L 300.3900, L501.4021, M200.1000, L503.7505, L300.4310, L500.4050, L503.6005, L100.0100 ####[facility] [address] [place], [place], [id number] T PROT 7.8 g/dL Normal 5.9-8.4 [facility] Comment on above: Performed By: #### L 300.3900, L501.4021, M200.1000, L503.7505, L300.4310, L500.4050, L503.6005, L100.0100 ####[facility] [address] [place], [address] Urea nitrogen [Mass/Vol] 24 mg/dL High 4-19 [facility] Comment on above: Performed By: #### L 300.3900, L501.4021, M200.1000, L503.7505, L300.4310, L500.4050, L503.6005, L100.0100 ####[facility] [address] [place], [place], [id number] Emergency Department Summary on 10-29-2024 Emergency Department Summary Normal [facility] Eosinophil percentageOrdered By: Ibrahima Kolb on 10-29-2024 Eosinophils/100 WBC (Bld) 3.5 % 0-5 [facility] Eosinophil percentageOrdered By: Rocio Bartlett on 10-29-2024 Eosinophils/100 WBC (Bld) 3.3 % 0-5 [facility] Erythrocyte distribution wid th ratioOrdered By: Ibrahima Kolb on 10-29-2024 Erythrocyte distribution width (RBC) [Ratio] 18.5 % High 11.6-14.6 [facility] Erythrocyte distribution wid th ratioOrdered By: Rocio Bartlett on 10-29-2024 Erythrocyte distribution width (RBC) [Ratio] 18.4 % High 11.6-14.6 [facility] Erythrocyte distribution wid th standard deviationOrdered By: Ibrahima Kolb on 10-29-2024 Erythrocyte distribution width (RBC) [Ratio] 53.9 fl High 35.1-43.9 [facility] Erythrocyte distribution wid th standard deviationOrdered By: Rocio Bartlett on 10-29-2024 Erythrocyte distribution width (RBC) [Ratio] 54.3 fl High 35.1-43.9 [facility] Glomerular filtration rate ( GFR) estimation/1.73 sq m using serum, plasma, or whole bOrdered By: Ibrahima Kolb on 10-29-2024 GFR/1.73 sq M.predicted among non-blacks MDRD (S/P/Bld) [Vol rate/Area] 108 mL/min/{1.73_m2} >60 [facility] Glomerular filtration rate ( GFR) estimation/1.73 sq m using serum, plasma, or whole bOrdered By: Rocio Bartlett on 10-29-2024 GFR/1.73 sq M.predicted among non-blacks MDRD (S/P/Bld) [Vol rate/Area] 101 mL/min/{1.73_m2} >60 [facility] Gram stainOrdered By: Juana Oseguera on 10-29-2024 Microscopic observation Gram stain Nom (Unsp spec) [facility] H AND P Exam - Hospitaliston 10-29-2024 H&P Exam - Hospitalist Normal [facility] Hematocrit Auto (Bld) [Volum e fraction]Ordered By: Ibrahima Kolb on 10-29-2024 Hematocrit (Bld) [Volume fraction] 32.7 % Low 40-54 [facility] Hematocrit Auto (Bld) [Volum e fraction]Ordered By: Roico Bartlett on 10-29-2024 Hematocrit (Bld) [Volume fraction] 33.6 % Low 40-54 [facility] Hemoglobin measurementOrdere d By: Ibrahima Kolb on 10-29-2024 Hemoglobin (Bld) [Mass/Vol] 9.2 g/dL Low 13.0-16.5 [facility] Hemoglobin measurementOrdere d By: Rocio Bartlett on 10-29-2024 Hemoglobin (Bld) [Mass/Vol] 9.0 g/dL Low 13.0-16.5 [facility] Immature granulocytes/100 WB C Auto (Bld)Ordered By: Ibrhaima Kolb on 10-29-2024 Immature granulocytes/100 WBC (Bld) 0.300 % 0.0-0.9 [facility] Immature granulocytes/100 WB C Auto (Bld)Ordered By: Rocio Bartlett on 10-29-2024 Immature granulocytes/100 WBC (Bld) 0.300 % 0.0-0.9 [facility] Influenza virus A and B and SARS-CoV-2 (COVID-19) and Respiratory syncytial virus RNAOrdered By: Ibrahima Kolb on 10-29-2024 SARS-CoV-2 (COVID-19) RNA ABIGAIL+probe Ql (Unsp spec) [facility] Iron measurement (mass/mass) Ordered By: Rocio Bartlett on 10-29-2024 Iron (Unsp spec) [Mass/Mass] 39 ug/dL Low 65-175 [facility] Ketones Test strip Ql (U)Ord ered By: Ibrahima Kolb on 10-29-2024 Ketones Ql (U) Negative Negative [facility] L499.0042on 10-29-2024 Trop T High Sen 109 ng/L Invalid Interpretation Code <=22 [facility] Comment on above: Result Comment: Crit ical Result(s) Called at 1307: by: MIREYA SANFORD.??Results read back by same. Performed By: #### L 499.0042 ####[facility] [address] [place], [place], [id number] L499.0043on 10-29-2024 Trop T High Sen 105 ng/L Invalid Interpretation Code <=22 [facility] Comment on above: Result Comment: Crit ical Result(s) Called ESMART at:1512 by:EVELYN??Results read back by same. Performed By: #### L 499.0043 ####[facility] [address] [place], [address] L501.4021on 10-29-2024 Trop T High Sen 113 ng/L Invalid Interpretation Code <=22 [facility] Comment on above: Result Comment: Crit ical Result(s) Called at 1149: by: MIREYA BONDS. ??Results read back by same. Performed By: #### L 300.3900, L501.4021, M200.1000, L503.7505, L300.4310, L500.4050, L503.6005, L100.0100 ####[facility] [address] [place], [address] L503.7505on 10-29-2024 Natriuretic peptide B (Bld) [Mass/Vol] 108 pg/mL Normal <=900 [facility] Comment on above: Result Comment: Hear t Failure Unlikely: < 300 pg/mLHeart Failure Likely< 50 Years: > 450 pg/mL50-75 Years: > 900 pg/mL>75 Years: > 1800 pg/mL Performed By: #### L 300.3900, L501.4021, M200.1000, L503.7505, L300.4310, L500.4050, L503.6005, L100.0100 ####[facility] [address] [place], [address] Lactic Acidon 10-29-2024 Lactate [Moles/Vol] 1.6 mmol/L Normal 0.0-2.0 [facility] Comment on above: Performed By: #### L 503.6005 ####[facility] [address] [facility] [place], [address] Lactate [Moles/Vol] 2.0 mmol/L Normal 0.0-2.0 [facility] Comment on above: Order Comment: Y Result Comment: Crit ical Result(s) Called at 1149: by: MIREYA BONDS. ??Results read back by same. Performed By: #### L 300.3900, L501.4021, M200.1000, L503.7505, L300.4310, L500.4050, L503.6005, L100.0100 ####[facility] [address] [place], [address] Legionella Antigen Urineon 0 10-29-2024 LEGU Normal [facility] Comment on above: Performed By: #### M 300.4500 ####[facility] [address] [place], [address] M100.678on 10-29-2024 M100.678 SARS-CoV-2 (COVID 19 ) Negative INFLUENZA A Negative INFLUENZA B Negative RSV PCR Negative Normal [facility] Comment on above: Performed By: #### M 100.2200, M100.678, L400.0001 ####[facility] [address] [place], [address] MCV (mean corpuscular volume ) determinationOrdered By: Ibrahima Kolb on 10-29-2024 MCV (RBC) [Entitic vol] 83.0 fL 80-94 [facility] MCV (mean corpuscular volume ) determinationOrdered By: Rocio Bartlett on 10-29-2024 MCV (RBC) [Entitic vol] 83.6 fL 80-94 [facility] Mean corpuscular hemoglobin (MCH) determinationOrdered By: Ibrahima Kolb on 10-29-2024 MCH (RBC) [Entitic mass] 23.4 pg Low 27.0-32.0 [facility] Mean corpuscular hemoglobin (MCH) determinationOrdered By: Rocio Bartlett on 10-29-2024 MCH (RBC) [Entitic mass] 22.4 pg Low 27.0-32.0 [facility] Measurement, pHOrdered By: Myranda OLIVO on 10-29-2024 pH (Unsp spec) 7.35 [pH] 7.35-7.45 [facility] Microbial respiratory cultur eOrdered By: Percy Price on 10-29-2024 Microorganism identified Cx Nom (Unsp spec) or Staphylococcus aureus isolated. [facility] Monocyte percentageOrdered B y: Ibrahima Kolb on 10-29-2024 Monocytes/100 WBC (Bld) 9.3 % 0-10 [facility] Monocyte percentageOrdered B y: Rocio Bartlett on 10-29-2024 Monocytes/100 WBC (Bld) 8.7 % 0-10 [facility] Mucus LM Ql (Urine sed)Order ed By: Ibrahima Kolb on 10-29-2024 Mucus Ql (Urine sed) 0 SEEN /hpf [facility] Natriuretic peptide.B prohor mimi N-Terminal [Mass/volume] in Serum or PlasmaOrdered By: Ibrahima Kolb on 10-29-2024 Natriuretic peptide.B prohormone N-Terminal [Mass/Vol] 108 pg/mL <900 [facility] Neutrophil percentageOrdered By: Ibrahima Kolb on 10-29-2024 Neutrophils/100 WBC (Bld) 65.6 % 47-70 [facility] Neutrophil percentageOrdered By: Rocio Bartlett on 10-29-2024 Neutrophils/100 WBC (Bld) 64.2 % 47-70 [facility] Nitrite Test strip Ql (U)Ord ered By: Ibrahima Kolb on 10-29-2024 Nitrite Ql (U) Positive High Negative [facility] No Panel InformationOrdered By: ED PROVIDER on 10-29-2024 ART [facility] R Brach [facility] Not entered [facility] Cannula [facility] No Panel InformationOrdered By: Ibrahima Kolb on 10-29-2024 19 U/L <38 [facility] No Panel InformationOrdered By: Rocio Bartlett on 10-29-2024 227 ug/dL Low 228-428 [facility] Partial Thromboplast Timeon 10-29-2024 aPTT Coag (Bld) [Time] 33.6 s Normal 24.1-36.2 [facility] Comment on above: Performed By: #### L 300.3900, L501.4021, M200.1000, L503.7505, L300.4310, L500.4050, L503.6005, L100.0100 ####[facility] [address] [place], [place], [id number] Platelet countOrdered By: Sohail Kolb on 10-29-2024 Platelets (Bld) [#/Vol] 264 10*3/uL 150-450 [facility] Platelet countOrdered By: Coretta Bartlett on 10-29-2024 Platelets (Bld) [#/Vol] 253 10*3/uL 150-450 [facility] Potassium measurement (mass/ volume)Ordered By: Ibrahima Kolb on 10-29-2024 Potassium (Unsp spec) [Mass/Vol] 4.1 mmol/L 3.3-5.1 [facility] Potassium measurement (mass/ volume)Ordered By: Rocio Bartlett on 10-29-2024 Potassium (Unsp spec) [Mass/Vol] 4.7 mmol/L 3.3-5.1 [facility] Protein Test strip Ql (U)Ord ered By: Ibrahima Kolb on 10-29-2024 Protein Ql (U) 100 mg/dl High Negative [facility] Prothrombin Time w/INRon INR Coag (PPP) [Relative time] 1.2 {INR} Normal [facility] Comment on above: Performed By: #### L 300.3900, L501.4021, M200.1000, L503.7505, L300.4310, L500.4050, L503.6005, L100.0100 ####[facility] [address] [place], [place], [id number] PT Coag (PPP) [Time] 15.9 s High 11.7-14.9 [facility] Comment on above: Performed By: #### L 300.3900, L501.4021, M200.1000, L503.7505, L300.4310, L500.4050, L503.6005, L100.0100 ####[facility] [address] [place], [place], [id number] Prothrombin timeOrdered By: Ibrahima Kolb on 10-29-2024 PT Coag (PPP) [Time] 15.9 s High 11.7-14.9 [facility] RBC Auto (Bld) [#/Vol]Ordere d By: Ibrahima Kolb on 10-29-2024 RBC (Bld) [#/Vol] 3.94 10*6/uL Low 4.6-6.2 [facility] RBC Auto (Bld) [#/Vol]Ordere d By: Rocio Bartlett on 10-29-2024 RBC (Bld) [#/Vol] 4.02 10*6/uL Low 4.6-6.2 [facility] RESPIRATORY PANEL MOLECULARo n 10-29-2024 RP PANEL Normal [facility] Comment on above: Performed By: #### M 100.638 ####[facility] [id number] [place], [address] Respiratory pathogens detect ion panel by molecular detection methodOrdered By: Percy Price on 10-29-2024 Respiratory pathogens DNA and RNA panel ABIGAIL+probe (Resp) [facility] Serum creatinine measurement (mass/volume)Ordered By: Ibrahima Kolb on 10-29-2024 Creatinine [Mass/Vol] 0.69 mg/dL Low 0.70-1.20 [facility] [facility] Serum creatinine measurement (mass/volume)Ordered By: Rocio Bartlett on 10-29-2024 Creatinine [Mass/Vol] 0.86 mg/dL 0.70-1.20 [facility] Serum globulin measurementOr dered By: Ibrahima Kolb on 10-29-2024 Globulin (S) [Mass/Vol] 4.2 g/dL 2.2-4.2 [facility] Serum glucose measurement (m ass/volume)Ordered By: Ibrahima Kolb on 10-29-2024 Glucose [Mass/Vol] 237 mg/dL High 70-99 [facility] Serum glucose measurement (m ass/volume)Ordered By: Rocio Bartlett on 10-29-2024 Glucose [Mass/Vol] 158 mg/dL High 70-99 [facility] Serum or plasma alanine diego otransferase (ALT) measurementOrdered By: Ibrahima Kolb on 10-29-2024 ALT [Catalytic activity/Vol] 14 U/L <47 [facility] Serum or plasma albumin sarah urement (mass/volume)Ordered By: Ibrahima Kolb on 10-29-2024 Albumin [Mass/Vol] 3.6 g/dL 3.5-5.0 [facility] Serum or plasma albumin/glob ulin mass ratioOrdered By: Ibrahima Kolb on 10-29-2024 Albumin/Globulin [Mass ratio] 0.9 {ratio} 0.9-2.4 [facility] Serum or plasma alkaline nate sphatase measurementOrdered By: Ibrahima Kolb on 10-29-2024 ALP [Catalytic activity/Vol] 81 U/L 40-129 [facility] Serum or plasma calcium sarah urement (mass/volume)Ordered By: Ibrahima Kolb on 10-29-2024 Calcium [Mass/Vol] 8.7 mg/dL 7.6-11.0 [facility] Serum or plasma calcium sarah urement (mass/volume)Ordered By: Rocio Bartlett on 10-29-2024 Calcium [Mass/Vol] 8.8 mg/dL 7.6-11.0 [facility] Serum or plasma iron saturat ion measurement (mass fraction)Ordered By: Rocio Bartlett on 10-29-2024 Iron saturation [Mass fraction] 15.0 % 9-55 [facility] Serum or plasma urea nitroge n measurement (mass/volume)Ordered By: Ibrahima Kolb on 10-29-2024 Urea nitrogen [Mass/Vol] 24 mg/dL High - [facility] Serum or plasma urea nitroge n measurement (mass/volume)Ordered By: Rocio Bartlett on 10-29-2024 Urea nitrogen [Mass/Vol] 24 mg/dL High - [facility] Sodium levelOrdered By: Diego Kolb on 10-29-2024 Sodium [Moles/Vol] 139 mmol/L 133-145 [facility] Sodium levelOrdered By: Mirtha Bartlett on 10-29-2024 Sodium [Moles/Vol] 138 mmol/L 133-145 [facility] Squamous epithelial cells de tection in urine sediment by light microscopyOrdered By: Ibrahima Kolb on 10-29-2024 Epithelial cells.squamous LM Ql (Urine sed) 0 SEEN /hpf 0-5 [facility] Strep pneumoniae Antig(UR,CS F)on 10-29-2024 STPAG Normal [facility] Comment on above: Performed By: #### M 202.1529 ####[facility] [address] [place], [address] Total carbon dioxide measure mentOrdered By: ED PROVIDER on 10-29-2024 CO2 [Moles/Vol] 39 mmol/L [facility] Total proteinOrdered By: Blaine Kolb on 10-29-2024 Protein [Mass/Vol] 7.8 g/dL 5.9-8.4 [facility] Troponin T.cardiac [Mass/vol ume] in Serum or Plasma by High sensitivity methodOrdered By: Ibrahima Kolb on 10-29-2024 Troponin T.cardiac High sensitivity method [Mass/Vol] 105 ng/L High <22 [facility] Troponin T.cardiac High sensitivity method [Mass/Vol] 109 ng/L High <22 [facility] Troponin T.cardiac High sensitivity method [Mass/Vol] 113 ng/L High <22 [facility] Urinalysis, Completeon 10-29 BACTERIA 1+ /hpf Normal None Seen [facility] Comment on above: Order Comment: COLLE CTOR TO SPECIFY Performed By: #### M 100.2200, M100.678, L400.0001 ####[facility] [address] [place], [address] RBC 0-5 SEEN Normal 0-5 [facility] Comment on above: Order Comment: COLLE CTOR TO SPECIFY Performed By: #### M 100.2200, M100.678, L400.0001 ####[facility] [address] [place], [address] WBC 0-5 SEEN Normal 0-5 [facility] Comment on above: Order Comment: COLLE CTOR TO SPECIFY Performed By: #### M 100.2200, M100.678, L400.0001 ####[facility] [address] [place], [address] EPI,SQUAMOUS 0 SEEN Normal 0-5 [facility] Comment on above: Order Comment: COLLE CTOR TO SPECIFY Performed By: #### M 100.2200, M100.678, L400.0001 ####[facility] [address] [place], [address] Mucus Ql (Urine sed) 0 SEEN Normal [facility] Comment on above: Order Comment: COLLE CTOR TO SPECIFY Performed By: #### M 100.2200, M100.678, L400.0001 ####[facility] [address] [place], [address] Urine Legionella pneumophila antigen detectionOrdered By: Percy Price on 10-29-2024 L. pneumophila Ag Ql (U) [facility] Urine clarityOrdered By: Blaine Kolb on 10-29-2024 Clarity (U) Clear Clear [facility] Urine color determinationOrd ered By: Ibrahima Kolb on 10-29-2024 Color (U) Yellow Yellow [facility] Urine cultureOrdered By: Blaine Kolb on 10-29-2024 Bacteria identified Cx Nom (U) Pseudomonas aeruginosa Abnormal [facility] Bacteria identified Cx Nom (U) Enterococcus faecalis Abnormal [facility] Urine glucose detectionOrder ed By: Ibrahima Kolb on 10-29-2024 Glucose Ql (U) Normal mg/dl Normal [facility] Urine leukocyte esterase det ection by dipstickOrdered By: Ibrahima Kolb on 10-29-2024 Leukocyte esterase Test strip Ql (U) 500 /ul High Negative [facility] Urine pHOrdered By: Ibrahima pandya on 10-29-2024 pH (U) 6.0 [pH] 5.0 - 8.0 [facility] Urine sediment bacteria coun t by microscopy (number/high power field)Ordered By: Ibrahima Kolb on 10-29-2024 Bacteria LM.HPF (Urine sed) [#/Area] 1 /[HPF] None Seen [facility] Urine specific gravity measu rementOrdered By: Ibrahima Kolb on 10-29-2024 Specific gravity (U) [Rel density] 1.010 1.002-1.030 [facility] Urine urobilinogen measureme ntOrdered By: Ibrahima Kolb on 10-29-2024 Urobilinogen Ql (U) Normal mg/dl Normal [facility] White blood cell (WBC) count Ordered By: Ibrahima Kolb on 10-29-2024 WBC (Bld) [#/Vol] 8.6 10*3/uL 4.4-11.0 [facility] White blood cell (WBC) count Ordered By: Rocio Bartlett on 10-29-2024 WBC (Bld) [#/Vol] 8.7 10*3/uL 4.4-11.0 [facility] White blood cell countOrdere d By: Ibrahima Kolb on 10-29-2024 White blood cell count 0-5 SEEN /hpf 0-5 [facility] Absolute lymphocyte countOrd ered By: Rocio Bartlett on 10-22-2024 Lymphocytes Auto (Unsp spec) [#/Vol] 2.51 10*3/uL 0.83-4.51 [facility] Anion gap in Serum or Plasma Ordered By: Rocio Bartlett on 10-22-2024 Anion gap [Moles/Vol] 8 mmol/L 5-15 [facility] Automated lymphocyte count a s percentage of total leukocytesOrdered By: Rocio Bartlett on 10-22-2024 Lymphocytes/100 WBC Auto (Unsp spec) 32.2 % 19-41 [facility] BUN/creatinine ratioOrdered By: Rocio Bartlett on 10-22-2024 Urea nitrogen/Creatinine [Mass ratio] 25.0 mg/mg High 10-20 [facility] Basophil percentageOrdered B y: Rocio Bartlett on 10-22-2024 Basophils/100 WBC (Bld) 0.4 % 0-1 [facility] Carbon dioxide, total [Moles /volume] in Central venous bloodOrdered By: Rocio Bartlett on 10-22-2024 CO2 [Moles/Vol] 37.9 mmol/L High 21.0-32.0 [facility] Chloride assayOrdered By: Coretta Bartlett on 10-22-2024 Chloride [Moles/Vol] 91 mmol/L Low 98-108 [facility] Eosinophil percentageOrdered By: Rocio Bartlett on 10-22-2024 Eosinophils/100 WBC (Bld) 4.1 % 0-5 [facility] Erythrocyte distribution wid th ratioOrdered By: Rocio Bartlett on 10-22-2024 Erythrocyte distribution width (RBC) [Ratio] 16.9 % High 11.6-14.6 [facility] Erythrocyte distribution wid th standard deviationOrdered By: Rocio Bartlett on 10-22-2024 Erythrocyte distribution width (RBC) [Ratio] 50.5 fl High 35.1-43.9 [facility] Glomerular filtration rate ( GFR) estimation/1.73 sq m using serum, plasma, or whole bOrdered By: Rocio Bartlett on 10-22-2024 GFR/1.73 sq M.predicted among non-blacks MDRD (S/P/Bld) [Vol rate/Area] 111 mL/min/{1.73_m2} >60 [facility] Hematocrit Auto (Bld) [Volum e fraction]Ordered By: Rocio Bartlett on 10-22-2024 Hematocrit (Bld) [Volume fraction] 34.2 % Low 40-54 [facility] Hemoglobin measurementOrdere d By: Rocio Bartlett on 10-22-2024 Hemoglobin (Bld) [Mass/Vol] 9.0 g/dL Low 13.0-16.5 [facility] Immature granulocytes/100 WB C Auto (Bld)Ordered By: Rocio Bartlett on 10-22-2024 Immature granulocytes/100 WBC (Bld) 0.800 % 0.0-0.9 [facility] MCV (mean corpuscular volume ) determinationOrdered By: Rocio Bartlett on 10-22-2024 MCV (RBC) [Entitic vol] 83.2 fL 80-94 [facility] Mean corpuscular hemoglobin (MCH) determinationOrdered By: Rocio Bartlett on 10-22-2024 MCH (RBC) [Entitic mass] 21.9 pg Low 27.0-32.0 [facility] Monocyte percentageOrdered B y: Rocio Bartlett on 10-22-2024 Monocytes/100 WBC (Bld) 9.9 % 0-10 [facility] Neutrophil percentageOrdered By: Rocio Bartlett on 10-22-2024 Neutrophils/100 WBC (Bld) 52.6 % 47-70 [facility] Platelet countOrdered By: Coretta Bartlett on 10-22-2024 Platelets (Bld) [#/Vol] 341 10*3/uL 150-450 [facility] Potassium measurement (mass/ volume)Ordered By: Rocio Bartlett on 10-22-2024 Potassium (Unsp spec) [Mass/Vol] 4.2 mmol/L 3.3-5.1 [facility] RBC Auto (Bld) [#/Vol]Ordere d By: Rocio Corneliusjanie on 10-22-2024 RBC (Bld) [#/Vol] 4.11 10*6/uL Low 4.6-6.2 [facility] Serum creatinine measurement (mass/volume)Ordered By: Rocio Corneliusjanie on 10-22-2024 Creatinine [Mass/Vol] 0.63 mg/dL Low 0.70-1.20 [facility] Serum glucose measurement (m ass/volume)Ordered By: Rocio Corneliussmithmyranda on 10-22-2024 Glucose [Mass/Vol] 239 mg/dL High 70-99 [facility] Serum or plasma calcium sarah urement (mass/volume)Ordered By: Rocio Bartlett on 10-22-2024 Calcium [Mass/Vol] 8.9 mg/dL 7.6-11.0 [facility] Serum or plasma urea nitroge n measurement (mass/volume)Ordered By: Rocio Corneliusjanie on 10-22-2024 Urea nitrogen [Mass/Vol] 16 mg/dL 4- [facility] Sodium levelOrdered By: Mirtha cherry Corneliussmithmyranda on 10-22-2024 Sodium [Moles/Vol] 137 mmol/L 133-145 [facility] White blood cell (WBC) count Ordered By: Rocio Corneliusjanie on 10-22-2024 WBC (Bld) [#/Vol] 7.8 10*3/uL 4.4-11.0 [facility] Basic Metabolic Profile (BMP )on 10-17-2024 BUN Normal 4-19 [facility] Comment on above: Result Comment: Canc elled via OM: Order cancelled - Patient discharged Performed By: #### L 500.2500 ####[facility] [address] [place], [address] BUN/CRE Normal 10-20 [facility] Comment on above: Result Comment: Canc elled via OM: Order cancelled - Patient discharged Performed By: #### L 500.2500 ####[facility] [address] [place], [address] Calcium Normal 7.6-11.0 [facility] Comment on above: Result Comment: Canc elled via OM: Order cancelled - Patient discharged Performed By: #### L 500.2500 ####[facility] [address] [place], [address] CL Normal 98-108 [facility] Comment on above: Result Comment: Canc elled via OM: Order cancelled - Patient discharged Performed By: #### L 500.2500 ####[facility] [address] [place], [address] CO2 Normal 21.0-32.0 [facility] Comment on above: Result Comment: Canc elled via OM: Order cancelled - Patient discharged Performed By: #### L 500.2500 ####[facility] [address] [place], [address] CREAT,SERUM Normal 0.70-1.20 [facility] Comment on above: Result Comment: Canc elled via OM: Order cancelled - Patient discharged Performed By: #### L 500.2500 ####[facility] [address] [place], [address] eGFR Normal >60 [facility] Comment on above: Result Comment: Canc elled via OM: Order cancelled - Patient discharged Performed By: #### L 500.2500 ####[facility] [address] [place], [address] GAP Normal 5-15 [facility] Comment on above: Result Comment: Canc elled via OM: Order cancelled - Patient discharged Performed By: #### L 500.2500 ####[facility] [address] [place], [address] GLU Normal 70-99 [facility] Comment on above: Result Comment: Canc elled via OM: Order cancelled - Patient discharged Performed By: #### L 500.2500 ####[facility] [address] [place], [address] Potassium Normal 3.3-5.1 [facility] Comment on above: Result Comment: Canc elled via OM: Order cancelled - Patient discharged Performed By: #### L 500.2500 ####[facility] [address] [place], [address] Basic Metabolic Profile (BMP) Normal 133-145 [facility] Comment on above: Result Comment: Canc elled via OM: Order cancelled - Patient discharged Performed By: #### L 500.2500 ####[facility] [address] [place], [address] CBC W/Diff, Automatedon 06-0 -2024 Absolute Neut Normal 2.0-7.7 [facility] Comment on above: Result Comment: Canc elled via OM: Order cancelled - Patient discharged Performed By: #### L 100.0100 ####[facility] [address] [place], [address] HCT Normal 40-54 [facility] Comment on above: Result Comment: Canc elled via OM: Order cancelled - Patient discharged Performed By: #### L 100.0100 ####[facility] [address] [place], [address] HGB Normal 13.0-16.5 [facility] Comment on above: Result Comment: Canc elled via OM: Order cancelled - Patient discharged Performed By: #### L 100.0100 ####[facility] [address] [place], [address] MCH Normal 27.0-32.0 [facility] Comment on above: Result Comment: Canc elled via OM: Order cancelled - Patient discharged Performed By: #### L 100.0100 ####[facility] [address] [place], [address] MCHC Normal 32-36 [facility] Comment on above: Result Comment: Canc elled via OM: Order cancelled - Patient discharged Performed By: #### L 100.0100 ####[facility] [address] [place], [address] MCV Normal 80-94 [facility] Comment on above: Result Comment: Canc elled via OM: Order cancelled - Patient discharged Performed By: #### L 100.0100 ####[facility] [address] [place], [address] NEUT% Normal 47-70 [facility] Comment on above: Result Comment: Canc elled via OM: Order cancelled - Patient discharged Performed By: #### L 100.0100 ####[facility] [address] [place], [address] PLT Normal 150-450 [facility] Comment on above: Result Comment: Canc elled via OM: Order cancelled - Patient discharged Performed By: #### L 100.0100 ####[facility] [address] [place], [address] RBC Normal 4.6-6.2 [facility] Comment on above: Result Comment: Canc elled via OM: Order cancelled - Patient discharged Performed By: #### L 100.0100 ####[facility] [address] [place], [address] RDW CV Normal 11.6-14.6 [facility] Comment on above: Result Comment: Canc elled via OM: Order cancelled - Patient discharged Performed By: #### L 100.0100 ####[facility] [address], [address] RDW SD Normal 35.1-43.9 [facility] Comment on above: Result Comment: Canc elled via OM: Order cancelled - Patient discharged Performed By: #### L 100.0100 ####[facility] [address] [place], [address] WBC Normal 4.4-11.0 [facility] Comment on above: Result Comment: Canc elled via OM: Order cancelled - Patient discharged Performed By: #### L 100.0100 ####[facility] [address] [place], [address] Culture, Blood (WB)on 2024 CUB Blood cultures x2, f rom two different sites No growth in 5 days. Normal [facility] Comment on above: Performed By: #### M 200.1000 ####[facility] [address] [place], [address] Absolute lymphocyte countOrd ered By: Palmira Johnson on 10-16-2024 Lymphocytes Auto (Unsp spec) [#/Vol] 1.90 10*3/uL 0.83-4.51 [facility] Anion gap in Serum or Plasma Ordered By: Palmira Johnson on 10-16-2024 Anion gap [Moles/Vol] 12 mmol/L 5-15 [facility] Automated lymphocyte count a s percentage of total leukocytesOrdered By: Palmira Johnson on 10-16-2024 Lymphocytes/100 WBC Auto (Unsp spec) 28.9 % 19-41 [facility] BUN/creatinine ratioOrdered By: Palmira Johnson on 10-16-2024 Urea nitrogen/Creatinine [Mass ratio] 38.2 mg/mg High 03-04 [facility] Basic Metabolic Profile (BMP )on 10-16-2024 BUN/CRE 38.2 RATIO High 03-04 [facility] Comment on above: Performed By: #### L 500.2500 ####[facility] [address] [place], [address] Calcium [Mass/Vol] 8.3 mg/dL Normal 7.6-11.0 [facility] Comment on above: Performed By: #### L 500.2500 ####[facility] [address] [place], [address] Chloride [Moles/Vol] 88 mmol/L Low 98-108 [facility] Comment on above: Performed By: #### L 500.2500 ####[facility] [address] [place], [address] CO2 [Moles/Vol] 37.1 mmol/L High 21.0-32.0 [facility] Comment on above: Performed By: #### L 500.2500 ####[facility] [address] [place], [address] Creatinine [Mass/Vol] 0.63 mg/dL Low 0.70-1.20 [facility] Comment on above: Performed By: #### L 500.2500 ####[facility] [address] [place], [address] ECRCL 181.63 ml/min Normal 50-250 [facility] Comment on above: Performed By: #### L 500.2500 ####[facility] [address] [place], [address] GAP 12 Normal 5-15 [facility] Comment on above: Performed By: #### L 500.2500 ####[facility] [address] [place], [address] GFR/1.73 sq M.predicted among non-blacks MDRD (S/P/Bld) [Vol rate/Area] 111 mL/min/{1.73_m2} Normal >60 [facility] Comment on above: Result Comment: mL/m in/1.73m2 CKD-EPI Creatinine Equation (2020) Performed By: #### L 500.2500 ####[facility] [address] [place], [address] Glucose [Mass/Vol] 259 mg/dL High 70-99 [facility] Comment on above: Performed By: #### L 500.2500 ####[facility] [address] [place], [address] Potassium [Moles/Vol] 3.4 mmol/L Normal 3.3-5.1 [facility] Comment on above: Performed By: #### L 500.2500 ####[facility] [address] [place], [address] Sodium [Moles/Vol] 138 mmol/L Normal 133-145 [facility] Comment on above: Performed By: #### L 500.2500 ####[facility] [address] [place], [address] Urea nitrogen [Mass/Vol] 24 mg/dL High 4-19 [facility] Comment on above: Performed By: #### L 500.2500 ####[facility] [address] [place], [address] Basophil percentageOrdered B y: Palmira Lorenzharjinder on 10-16-2024 Basophils/100 WBC (Bld) 0.6 % 0-1 [facility] Bedside Glucoseon 10-16-2024 FINGERSTICK GLU 294 mg/dL High 74-106 [facility] Comment on above: Result Comment: BILL GEMENT OF PATIENT CARE PER NURSING PROTOCOL Performed By: #### L 501.080 ####[facility] [address] [place], [address] FINGERSTICK GLU 277 mg/dL High 74-106 [facility] Comment on above: Result Comment: BILL GEMENT OF PATIENT CARE PER NURSING PROTOCOL Performed By: #### L 501.080 ####[facility] [address] [place], [address] FINGERSTICK GLU 270 mg/dL High 74-106 [facility] Comment on above: Result Comment: BILL GEMENT OF PATIENT CARE PER NURSING PROTOCOL Performed By: #### L 501.080 ####[facility] [address] [place], [address] CBC W/Diff, Automatedon 06-0 -2024 Absolute Lymph 1.90 X10 3/uL Normal 0.83-4.51 [facility] Comment on above: Performed By: #### L 100.0100 ####[facility] [address] [place], [address] Absolute Neut 3.7 X10 3/uL Normal 2.0-7.7 [facility] Comment on above: Performed By: #### L 100.0100 ####[facility] [address] [place], [address] Basophils/100 WBC (Bld) 0.6 % Normal 0-1 [facility] Comment on above: Performed By: #### L 100.0100 ####[facility] [address] [place], [address] Eosinophils/100 WBC (Bld) 2.1 % Normal 0-5 [facility] Comment on above: Performed By: #### L 100.0100 ####[facility] [address] [place], [address] Erythrocyte distribution width (RBC) [Ratio] 17.1 % High 11.6-14.6 [facility] Comment on above: Performed By: #### L 100.0100 ####[facility] [address] [place], [address] Hematocrit (Bld) [Volume fraction] 33.8 % Low 40-54 [facility] Comment on above: Performed By: #### L 100.0100 ####[facility] [address] [place], [address] Hemoglobin (Bld) [Mass/Vol] 9.4 g/dL Low 13.0-16.5 [facility] Comment on above: Performed By: #### L 100.0100 ####[facility] [address] [place], [address] IG% 0.800 Normal 0.0-0.9 [facility] Comment on above: Result Comment: IG% - Immature Granulocytes (promyelocytes, myelocytes andmetamyelocytes) > 1% indicates that a LEFT SHIFT is Present. Performed By: #### L 100.0100 ####[facility] [address] [place], [address] Lymphocytes/100 WBC (Bld) 28.9 % Normal 19-41 [facility] Comment on above: Performed By: #### L 100.0100 ####[facility] [address] [place], [address] MCH (RBC) [Entitic mass] 22.5 pg Low 27.0-32.0 [facility] Comment on above: Performed By: #### L 100.0100 ####[facility] [address] [place], [address] MCHC (RBC) [Mass/Vol] 27.8 g/dL Low 32-36 [facility] Comment on above: Performed By: #### L 100.0100 ####[facility] [address] [place], [address] MCV (RBC) [Entitic vol] 80.9 fL Normal 80-94 [facility] Comment on above: Performed By: #### L 100.0100 ####[facility] [address] [place], [address] Monocytes/100 WBC (Bld) 11.0 % High 0-10 [facility] Comment on above: Performed By: #### L 100.0100 ####[facility] [address] [place], [address] Neutrophils/100 WBC (Bld) 56.6 % Normal 47-70 [facility] Comment on above: Performed By: #### L 100.0100 ####[facility] [address] [place], [address] Nucleated RBC (Bld) [#/Vol] 0 10*3/uL Normal 0-5 [facility] Comment on above: Performed By: #### L 100.0100 ####[facility] [address] [place], [address] Platelet mean volume (Bld) [Entitic vol] 9.9 fL Normal 6.2-12.0 [facility] Comment on above: Performed By: #### L 100.0100 ####[facility] [address] [place], [address] Platelets (Bld) [#/Vol] 290 10*3/uL Normal 150-450 [facility] Comment on above: Performed By: #### L 100.0100 ####[facility] [address] [place], [address] RBC (Bld) [#/Vol] 4.18 10*6/uL Low 4.6-6.2 [facility] Comment on above: Performed By: #### L 100.0100 ####[facility] [address] [place], [address] RDW SD 50.3 fl High 35.1-43.9 [facility] Comment on above: Performed By: #### L 100.0100 ####[facility] [address] [place], [address] WBC (Bld) [#/Vol] 6.6 10*3/uL Normal 4.4-11.0 [facility] Comment on above: Performed By: #### L 100.0100 ####[facility] [address] [place], [address] Carbon dioxide, total [Moles /volume] in Central venous bloodOrdered By: Palmira Johnson on 10-16-2024 CO2 [Moles/Vol] 37.1 mmol/L High 21.0-32.0 [facility] Chloride assayOrdered By: Nathan Johnson on 10-16-2024 Chloride [Moles/Vol] 88 mmol/L Low 98-108 [facility] Eosinophil percentageOrdered By: Palmira Johnson on 10-16-2024 Eosinophils/100 WBC (Bld) 2.1 % 0-5 [facility] Erythrocyte distribution wid th ratioOrdered By: Palmira Johnson on 10-16-2024 Erythrocyte distribution width (RBC) [Ratio] 17.1 % High 11.6-14.6 [facility] Erythrocyte distribution wid th standard deviationOrdered By: Palmira Johnson on 10-16-2024 Erythrocyte distribution width (RBC) [Ratio] 50.3 fl High 35.1-43.9 [facility] Glomerular filtration rate ( GFR) estimation/1.73 sq m using serum, plasma, or whole bOrdered By: Palmira Johnson on 10-16-2024 GFR/1.73 sq M.predicted among non-blacks MDRD (S/P/Bld) [Vol rate/Area] 111 mL/min/{1.73_m2} >60 [facility] deOrdered By: Palmira Johnson on 10-16-2024 Glucose [Mass/Vol] 294 mg/dL High 74-106 [facility] Hematocrit Auto (Bld) [Volum e fraction]Ordered By: Palmira Johnson on 10-16-2024 Hematocrit (Bld) [Volume fraction] 33.8 % Low 40-54 [facility] Hemoglobin measurementOrdere d By: Palmira Johnson on 10-16-2024 Hemoglobin (Bld) [Mass/Vol] 9.4 g/dL Low 13.0-16.5 [facility] Immature granulocytes/100 WB C Auto (Bld)Ordered By: Palmira Johnson on 10-16-2024 Immature granulocytes/100 WBC (Bld) 0.800 % 0.0-0.9 [facility] MCV (mean corpuscular volume ) determinationOrdered By: Palmira Johnson on 10-16-2024 MCV (RBC) [Entitic vol] 80.9 fL 80-94 [facility] Mean corpuscular hemoglobin (MCH) determinationOrdered By: Palmira Johnson on 10-16-2024 MCH (RBC) [Entitic mass] 22.5 pg Low 27.0-32.0 [facility] Monocyte percentageOrdered B y: Palmira Johnson on 10-16-2024 Monocytes/100 WBC (Bld) 11.0 % High 0-10 [facility] Neutrophil percentageOrdered By: Palmira Johnson on 10-16-2024 Neutrophils/100 WBC (Bld) 56.6 % 47-70 [facility] Platelet countOrdered By: Nathan Johnson on 10-16-2024 Platelets (Bld) [#/Vol] 290 10*3/uL 150-450 [facility] Potassium measurement (mass/ volume)Ordered By: Palmira Johnson on 10-16-2024 Potassium (Unsp spec) [Mass/Vol] 3.4 mmol/L 3.3-5.1 [facility] RBC Auto (Bld) [#/Vol]Ordere d By: Palmira Johnson on 10-16-2024 RBC (Bld) [#/Vol] 4.18 10*6/uL Low 4.6-6.2 [facility] Serum creatinine measurement (mass/volume)Ordered By: Palmira Johnson on 10-16-2024 Creatinine [Mass/Vol] 0.63 mg/dL Low 0.70-1.20 [facility] Serum glucose measurement (m ass/volume)Ordered By: Palmira Johnson on 10-16-2024 Glucose [Mass/Vol] 259 mg/dL High 70-99 [facility] Serum or plasma calcium sarah urement (mass/volume)Ordered By: Palmira Johnson on 10-16-2024 Calcium [Mass/Vol] 8.3 mg/dL 7.6-11.0 [facility] Serum or plasma urea nitroge n measurement (mass/volume)Ordered By: Palmira Johnson on 10-16-2024 Urea nitrogen [Mass/Vol] 24 mg/dL High 4-19 [facility] Sodium levelOrdered By: Yousif Johnson on 10-16-2024 Sodium [Moles/Vol] 138 mmol/L 133-145 [facility] White blood cell (WBC) count Ordered By: Palmira Johnson on 10-16-2024 WBC (Bld) [#/Vol] 6.6 10*3/uL 4.4-11.0 [facility] Basic Metabolic Profile (BMP )on 10-15-2024 BUN/CRE 32.9 RATIO High 10-20 [facility] Comment on above: Performed By: #### L 500.2500 ####[facility] [address] [place], [address] Calcium [Mass/Vol] 8.7 mg/dL Normal 7.6-11.0 [facility] Comment on above: Performed By: #### L 500.2500 ####[facility] [address] [place], [address] Chloride [Moles/Vol] 86 mmol/L Low 98-108 [facility] Comment on above: Performed By: #### L 500.2500 ####[facility] [address] [place], [address] CO2 [Moles/Vol] 39.0 mmol/L High 21.0-32.0 [facility] Comment on above: Performed By: #### L 500.2500 ####[facility] [address] [place], [address] Creatinine [Mass/Vol] 0.78 mg/dL Normal 0.70-1.20 [facility] Comment on above: Performed By: #### L 500.2500 ####[facility] [address] [place], [address] ECRCL 146.52 ml/min Normal 50-250 [facility] Comment on above: Performed By: #### L 500.2500 ####[facility] [address] [place], [address] GAP 10 Normal 5-15 [facility] Comment on above: Performed By: #### L 500.2500 ####[facility] [address] [place], [address] GFR/1.73 sq M.predicted among non-blacks MDRD (S/P/Bld) [Vol rate/Area] 104 mL/min/{1.73_m2} Normal >60 [facility] Comment on above: Result Comment: mL/m in/1.73m2 CKD-EPI Creatinine Equation (2020) Performed By: #### L 500.2500 ####[facility] [address] [place], [address] Glucose [Mass/Vol] 194 mg/dL High 70-99 [facility] Comment on above: Performed By: #### L 500.2500 ####[facility] [address] [place], [address] Potassium [Moles/Vol] 3.6 mmol/L Normal 3.3-5.1 [facility] Comment on above: Performed By: #### L 500.2500 ####[facility] [address] [place], [address] Sodium [Moles/Vol] 135 mmol/L Normal 133-145 [facility] Comment on above: Performed By: #### L 500.2500 ####[facility] [address] [place], [address] Urea nitrogen [Mass/Vol] 26 mg/dL High 4-19 [facility] Comment on above: Performed By: #### L 500.2500 ####[facility] [address] [place], [address] Bedside Glucoseon 10-15-2024 FINGERSTICK GLU 264 mg/dL High 74-106 [facility] Comment on above: Result Comment: BILL DELEON OF PATIENT CARE PER NURSING PROTOCOL Performed By: #### L 501.080 ####[facility] [address] [place], [address] FINGERSTICK GLU 280 mg/dL High 74-106 [facility] Comment on above: Result Comment: BILL DELEON OF PATIENT CARE PER NURSING PROTOCOL Performed By: #### L 501.080 ####[facility] [address] [place], [address] CBC W/Diff, Automatedon 06-0 2-2024 Absolute Lymph 1.46 X10 3/uL Normal 0.83-4.51 [facility] Comment on above: Performed By: #### L 100.0100 ####[facility] [address] [place], [address] Absolute Neut 4.0 X10 3/uL Normal 2.0-7.7 [facility] Comment on above: Performed By: #### L 100.0100 ####[facility] [address] [place], [address] Basophils/100 WBC (Bld) 0.6 % Normal 0-1 [facility] Comment on above: Performed By: #### L 100.0100 ####[facility] [address] [place], [address] Eosinophils/100 WBC (Bld) 1.2 % Normal 0-5 [facility] Comment on above: Performed By: #### L 100.0100 ####[facility] [address] [place], [address] Erythrocyte distribution width (RBC) [Ratio] 17.4 % High 11.6-14.6 [facility] Comment on above: Performed By: #### L 100.0100 ####[facility] [address] [place], [address] Hematocrit (Bld) [Volume fraction] 36.6 % Low 40-54 [facility] Comment on above: Performed By: #### L 100.0100 ####[facility] [address] [place], [address] Hemoglobin (Bld) [Mass/Vol] 10.1 g/dL Low 13.0-16.5 [facility] Comment on above: Performed By: #### L 100.0100 ####[facility] [address] [place], [address] IG% 0.500 Normal 0.0-0.9 [facility] Comment on above: Result Comment: IG% - Immature Granulocytes (promyelocytes, myelocytes andmetamyelocytes) > 1% indicates that a LEFT SHIFT is Present. Performed By: #### L 100.0100 ####[facility] [address] [place], [address] Lymphocytes/100 WBC (Bld) 22.1 % Normal 19-41 [facility] Comment on above: Performed By: #### L 100.0100 ####[facility] [address] [place], [address] MCH (RBC) [Entitic mass] 22.4 pg Low 27.0-32.0 [facility] Comment on above: Performed By: #### L 100.0100 ####[facility] [address] [place], [address] MCHC (RBC) [Mass/Vol] 27.6 g/dL Low 32-36 [facility] Comment on above: Performed By: #### L 100.0100 ####[facility] [address] [place], [address] MCV (RBC) [Entitic vol] 81.3 fL Normal 80-94 [facility] Comment on above: Performed By: #### L 100.0100 ####[facility] [address] [place], [address] Monocytes/100 WBC (Bld) 15.5 % High 0-10 [facility] Comment on above: Performed By: #### L 100.0100 ####[facility] [address] [place], [address] Neutrophils/100 WBC (Bld) 60.1 % Normal 47-70 [facility] Comment on above: Performed By: #### L 100.0100 ####[facility] [address] [place], [address] Nucleated RBC (Bld) [#/Vol] 0.3 10*3/uL Normal 0-5 [facility] Comment on above: Performed By: #### L 100.0100 ####[facility] [address] [place], [address] Platelet mean volume (Bld) [Entitic vol] 9.8 fL Normal 6.2-12.0 [facility] Comment on above: Performed By: #### L 100.0100 ####[facility] [address] [place], [address] Platelets (Bld) [#/Vol] 321 10*3/uL Normal 150-450 [facility] Comment on above: Performed By: #### L 100.0100 ####[facility] [address] [place], [address] RBC (Bld) [#/Vol] 4.50 10*6/uL Low 4.6-6.2 [facility] Comment on above: Performed By: #### L 100.0100 ####[facility] [address] [place], [address] RDW SD 51.4 fl High 35.1-43.9 [facility] Comment on above: Performed By: #### L 100.0100 ####[facility] [address] [place], [address] WBC (Bld) [#/Vol] 6.6 10*3/uL Normal 4.4-11.0 [facility] Comment on above: Performed By: #### L 100.0100 ####[facility] [address] [place], [address] Respiratory Cultureon 2024 RESPC Presumptive C albica ns Amount Growth 2+ Normal [facility] Comment on above: Performed By: #### M 100.2400, M100.2000 ####[facility] [address] [place], [address] Basic Metabolic Profile (BMP )on 10-14-2024 BUN/CRE 34.0 RATIO High 10-20 [facility] Comment on above: Performed By: #### L 500.2500 ####[facility] [address] [place], [address] Calcium [Mass/Vol] 8.5 mg/dL Normal 7.6-11.0 [facility] Comment on above: Performed By: #### L 500.2500 ####[facility] [address] [place], [address] Chloride [Moles/Vol] 89 mmol/L Low 98-108 [facility] Comment on above: Performed By: #### L 500.2500 ####[facility] [address] [place], [address] CO2 [Moles/Vol] 35.2 mmol/L High 21.0-32.0 [facility] Comment on above: Performed By: #### L 500.2500 ####[facility] [address] [place], [address] Creatinine [Mass/Vol] 0.70 mg/dL Normal 0.70-1.20 [facility] Comment on above: Performed By: #### L 500.2500 ####[facility] [address] [place], [address] ECRCL 164.32 ml/min Normal 50-250 [facility] Comment on above: Performed By: #### L 500.2500 ####[facility] [address] [place], [address] GAP 12 Normal 5-15 [facility] Comment on above: Performed By: #### L 500.2500 ####[facility] [address] [place], [address] GFR/1.73 sq M.predicted among non-blacks MDRD (S/P/Bld) [Vol rate/Area] 107 mL/min/{1.73_m2} Normal >60 [facility] Comment on above: Result Comment: mL/m in/1.73m2 CKD-EPI Creatinine Equation (2020) Performed By: #### L 500.2500 ####[facility] [address] [place], [address] Glucose [Mass/Vol] 202 mg/dL High 70-99 [facility] Comment on above: Performed By: #### L 500.2500 ####[facility] [address] [place], [address] Potassium [Moles/Vol] 4.4 mmol/L Normal 3.3-5.1 [facility] Comment on above: Performed By: #### L 500.2500 ####[facility] [address] [place], [address] Sodium [Moles/Vol] 137 mmol/L Normal 133-145 [facility] Comment on above: Performed By: #### L 500.2500 ####[facility] [address] [place], [address] Urea nitrogen [Mass/Vol] 24 mg/dL High 4-19 [facility] Comment on above: Performed By: #### L 500.2500 ####[facility] [address] [place], [address] Bedside Glucoseon 10-14-2024 FINGERSTICK GLU 234 mg/dL High 74-106 [facility] Comment on above: Result Comment: BILL GEMENT OF PATIENT CARE PER NURSING PROTOCOL Performed By: #### L 501.080 ####[facility] [address] [place], [address] FINGERSTICK GLU 174 mg/dL High 74-106 [facility] Comment on above: Result Comment: BILL GEMENT OF PATIENT CARE PER NURSING PROTOCOL Performed By: #### L 501.080 ####[facility] [address] [place], [address] FINGERSTICK GLU 177 mg/dL High 74-106 [facility] Comment on above: Result Comment: BILL GEMENT OF PATIENT CARE PER NURSING PROTOCOL Performed By: #### L 501.080 ####[facility] [address] [place], [address] FINGERSTICK GLU 185 mg/dL High 74-106 [facility] Comment on above: Result Comment: BILL GEMENT OF PATIENT CARE PER NURSING PROTOCOL Performed By: #### L 501.080 ####[facility] [address] [place], [address] CBC W/Diff, Automatedon 06-0 1-2025 Absolute Lymph 1.24 X10 3/uL Normal 0.83-4.51 [facility] Comment on above: Performed By: #### L 100.0100 ####[facility] [address] [place], [address] Absolute Neut 5.4 X10 3/uL Normal 2.0-7.7 [facility] Comment on above: Performed By: #### L 100.0100 ####[facility] [address] [place], [address] Basophils/100 WBC (Bld) 0.4 % Normal 0-1 [facility] Comment on above: Performed By: #### L 100.0100 ####[facility] [address] [place], [address] Eosinophils/100 WBC (Bld) 0.4 % Normal 0-5 [facility] Comment on above: Performed By: #### L 100.0100 ####[facility] [address] [place], [address] Erythrocyte distribution width (RBC) [Ratio] 17.4 % High 11.6-14.6 [facility] Comment on above: Performed By: #### L 100.0100 ####[facility] [address] [place], [address] Hematocrit (Bld) [Volume fraction] 36.7 % Low 40-54 [facility] Comment on above: Performed By: #### L 100.0100 ####[facility] [address] [place], [address] Hemoglobin (Bld) [Mass/Vol] 10.1 g/dL Low 13.0-16.5 [facility] Comment on above: Performed By: #### L 100.0100 ####[facility] [address] [place], [address] IG% 0.500 Normal 0.0-0.9 [facility] Comment on above: Result Comment: IG% - Immature Granulocytes (promyelocytes, myelocytes andmetamyelocytes) > 1% indicates that a LEFT SHIFT is Present. Performed By: #### L 100.0100 ####[facility] [address] [place], [address] Lymphocytes/100 WBC (Bld) 15.8 % Low 19-41 [facility] Comment on above: Performed By: #### L 100.0100 ####[facility] [address] [place], [address] MCH (RBC) [Entitic mass] 22.7 pg Low 27.0-32.0 [facility] Comment on above: Performed By: #### L 100.0100 ####[facility] [address] [place], [address] MCHC (RBC) [Mass/Vol] 27.5 g/dL Low 32-36 [facility] Comment on above: Performed By: #### L 100.0100 ####[facility] [address] [place], [address] MCV (RBC) [Entitic vol] 82.5 fL Normal 80-94 [facility] Comment on above: Performed By: #### L 100.0100 ####[facility] [address] [place], [address] Monocytes/100 WBC (Bld) 14.0 % High 0-10 [facility] Comment on above: Performed By: #### L 100.0100 ####[facility] [address] [place], [address] Neutrophils/100 WBC (Bld) 68.9 % Normal 47-70 [facility] Comment on above: Performed By: #### L 100.0100 ####[facility] [address] [place], [address] Nucleated RBC (Bld) [#/Vol] 0.3 10*3/uL Normal 0-5 [facility] Comment on above: Performed By: #### L 100.0100 ####[facility] [address] [place], [address] Platelet mean volume (Bld) [Entitic vol] 10.0 fL Normal 6.2-12.0 [facility] Comment on above: Performed By: #### L 100.0100 ####[facility] [address] [place], [address] Platelets (Bld) [#/Vol] 294 10*3/uL Normal 150-450 [facility] Comment on above: Performed By: #### L 100.0100 ####[facility] [address] [place], [address] RBC (Bld) [#/Vol] 4.45 10*6/uL Low 4.6-6.2 [facility] Comment on above: Performed By: #### L 100.0100 ####[facility] [address] [place], [address] RDW SD 52.2 fl High 35.1-43.9 [facility] Comment on above: Performed By: #### L 100.0100 ####[facility] [address] [place], [address] WBC (Bld) [#/Vol] 7.8 10*3/uL Normal 4.4-11.0 [facility] Comment on above: Performed By: #### L 100.0100 ####[facility] [address] [place], [address] Absolute lymphocyte countOrd ered By: Palmira Johnson on 10-13-2024 Lymphocytes Auto (Unsp spec) [#/Vol] 0.81 10*3/uL Low 0.83-4.51 [facility] Anion gap in Serum or Plasma Ordered By: Palmira Johnson on 10-13-2024 Anion gap [Moles/Vol] 11 mmol/L 5-15 [facility] Automated lymphocyte count a s percentage of total leukocytesOrdered By: Palmira Johnson on 10-13-2024 Lymphocytes/100 WBC Auto (Unsp spec) 12.2 % Low 19-41 [facility] BUN/creatinine ratioOrdered By: Palmira Johnson on 10-13-2024 Urea nitrogen/Creatinine [Mass ratio] 27.0 mg/mg High 10-20 [facility] Basic Metabolic Profile (BMP )on 10-13-2024 BUN/CRE 27.0 RATIO High 10- [facility] Comment on above: Performed By: #### L 500.2500, L501.5200 ####[facility] [address] [place], [address] Calcium [Mass/Vol] 8.9 mg/dL Normal 7.6-11.0 [facility] Comment on above: Performed By: #### L 500.2500, L501.5200 ####[facility] [address] [place], [address] Chloride [Moles/Vol] 93 mmol/L Low 98-108 [facility] Comment on above: Performed By: #### L 500.2500, L501.5200 ####[facility] [address] [place], [address] CO2 [Moles/Vol] 33.1 mmol/L High 21.0-32.0 [facility] Comment on above: Performed By: #### L 500.2500, L501.5200 ####[facility] [address] [place], [address] Creatinine [Mass/Vol] 0.70 mg/dL Normal 0.70-1.20 [facility] Comment on above: Performed By: #### L 500.2500, L501.5200 ####[facility] [address] [place], [address] ECRCL 165.44 ml/min Normal 50-250 [facility] Comment on above: Performed By: #### L 500.2500, L501.5200 ####[facility] [address] [place], [address] GAP 11 Normal 5-15 [facility] Comment on above: Performed By: #### L 500.2500, L501.5200 ####[facility] [address] [place], [address] GFR/1.73 sq M.predicted among non-blacks MDRD (S/P/Bld) [Vol rate/Area] 107 mL/min/{1.73_m2} Normal >60 [facility] Comment on above: Result Comment: mL/m in/1.73m2 CKD-EPI Creatinine Equation (2020) Performed By: #### L 500.2500, L501.5200 ####[facility] [address] [place], [address] Glucose [Mass/Vol] 340 mg/dL High 70-99 [facility] Comment on above: Performed By: #### L 500.2500, L501.5200 ####[facility] [address] [place], [address] Potassium [Moles/Vol] 4.7 mmol/L Normal 3.3-5.1 [facility] Comment on above: Performed By: #### L 500.2500, L501.5200 ####[facility] [address] [place], [address] Sodium [Moles/Vol] 136 mmol/L Normal 133-145 [facility] Comment on above: Performed By: #### L 500.2500, L501.5200 ####[facility] [address] [place], [address] Urea nitrogen [Mass/Vol] 19 mg/dL Normal 4-19 [facility] Comment on above: Performed By: #### L 500.2500, L501.5200 ####[facility] [address] [place], [address] Basophil percentageOrdered B y: Palmira Johnson on 10-13-2024 Basophils/100 WBC (Bld) 0.3 % 0-1 [facility] Bedside Glucoseon 10-13-2024 FINGERSTICK GLU 250 mg/dL High 74-106 [facility] Comment on above: Result Comment: BILLAnuja DELEON OF PATIENT CARE PER NURSING PROTOCOL Performed By: #### L 501.080 ####[facility] [address] [place], [address] FINGERSTICK GLU 266 mg/dL High 74-106 [facility] Comment on above: Result Comment: BILL VANCEENT OF PATIENT CARE PER NURSING PROTOCOL Performed By: #### L 501.080 ####[facility] [address] [place], [address] FINGERSTICK GLU 245 mg/dL High 74-106 [facility] Comment on above: Result Comment: BILL GEMENT OF PATIENT CARE PER NURSING PROTOCOL Performed By: #### L 501.080 ####[facility] [address] [place], [address] FINGERSTICK GLU 297 mg/dL High 74-106 [facility] Comment on above: Result Comment: BILL GEMENT OF PATIENT CARE PER NURSING PROTOCOL Performed By: #### L 501.080 ####[facility] [address] [place], [address] CBC W/Diff, Automatedon 05-3 -2024 Absolute Lymph 0.81 X10 3/uL Low 0.83-4.51 [facility] Comment on above: Performed By: #### L 501.2300, L100.0100 ####[facility] [address] [place], [address] Absolute Neut 5.3 X10 3/uL Normal 2.0-7.7 [facility] Comment on above: Performed By: #### L 501.2300, L100.0100 ####[facility] [address] [place], [address] Basophils/100 WBC (Bld) 0.3 % Normal 0-1 [facility] Comment on above: Performed By: #### L 501.2300, L100.0100 ####[facility] [address] [place], [address] Eosinophils/100 WBC (Bld) 0.0 % Normal 0-5 [facility] Comment on above: Performed By: #### L 501.2300, L100.0100 ####[facility] [address] [place], [address] Erythrocyte distribution width (RBC) [Ratio] 17.2 % High 11.6-14.6 [facility] Comment on above: Performed By: #### L 501.2300, L100.0100 ####[facility] [address] [place], [address] Hematocrit (Bld) [Volume fraction] 36.6 % Low 40-54 [facility] Comment on above: Performed By: #### L 501.2300, L100.0100 ####[facility] [address] [place], [address] Hemoglobin (Bld) [Mass/Vol] 10.1 g/dL Low 13.0-16.5 [facility] Comment on above: Performed By: #### L 501.2300, L100.0100 ####[facility] [address] [place], [address] IG% 1.500 High 0.0-0.9 [facility] Comment on above: Result Comment: IG% - Immature Granulocytes (promyelocytes, myelocytes andmetamyelocytes) > 1% indicates that a LEFT SHIFT is Present. Performed By: #### L 501.2300, L100.0100 ####[facility] [address] [place], [address] Lymphocytes/100 WBC (Bld) 12.2 % Low 19-41 [facility] Comment on above: Performed By: #### L 501.2300, L100.0100 ####[facility] [address] [place], [address] MCH (RBC) [Entitic mass] 22.9 pg Low 27.0-32.0 [facility] Comment on above: Performed By: #### L 501.2300, L100.0100 ####[facility] [address] [place], [address] MCHC (RBC) [Mass/Vol] 27.6 g/dL Low 32-36 [facility] Comment on above: Performed By: #### L 501.2300, L100.0100 ####[facility] [address] [place], [address] MCV (RBC) [Entitic vol] 82.8 fL Normal 80-94 [facility] Comment on above: Performed By: #### L 501.2300, L100.0100 ####[facility] [address] [place], [address] Monocytes/100 WBC (Bld) 7.1 % Normal 0-10 [facility] Comment on above: Performed By: #### L 501.2300, L100.0100 ####[facility] [address] [place], [address] Neutrophils/100 WBC (Bld) 78.9 % High 47-70 [facility] Comment on above: Performed By: #### L 501.2300, L100.0100 ####[facility] [address] [place], [address] Nucleated RBC (Bld) [#/Vol] 0.3 10*3/uL Normal 0-5 [facility] Comment on above: Performed By: #### L 501.2300, L100.0100 ####[facility] [address] [place], [address] Platelet mean volume (Bld) [Entitic vol] 9.4 fL Normal 6.2-12.0 [facility] Comment on above: Performed By: #### L 501.2300, L100.0100 ####[facility] [address] [place], [address] Platelets (Bld) [#/Vol] 312 10*3/uL Normal 150-450 [facility] Comment on above: Performed By: #### L 501.2300, L100.0100 ####[facility] [address] [place], [address] RBC (Bld) [#/Vol] 4.42 10*6/uL Low 4.6-6.2 [facility] Comment on above: Performed By: #### L 501.2300, L100.0100 ####[facility] [address] [place], [address] RDW SD 52.0 fl High 35.1-43.9 [facility] Comment on above: Performed By: #### L 501.2300, L100.0100 ####[facility] [address] [place], [address] WBC (Bld) [#/Vol] 6.7 10*3/uL Normal 4.4-11.0 [facility] Comment on above: Performed By: #### L 501.2300, L100.0100 ####[facility] [address] [place], [address] Carbon dioxide, total [Moles /volume] in Central venous bloodOrdered By: Palmira Johnson on 10-13-2024 CO2 [Moles/Vol] 33.1 mmol/L High 21.0-32.0 [facility] Chloride assayOrdered By: Nathan Johnson on 10-13-2024 Chloride [Moles/Vol] 93 mmol/L Low 98-108 [facility] Echo Completeon 10-13-2024 Echo Complete Normal [facility] Echocardiogram study reportO rdered By: Radha Green on 10-13-2024 Study report [facility] Work Phone: Eosinophil percentageOrdered By: Palmira Johnson on 10-13-2024 Eosinophils/100 WBC (Bld) 0.0 % 0-5 [facility] Erythrocyte distribution wid th ratioOrdered By: Palmira Johnson on 10-13-2024 Erythrocyte distribution width (RBC) [Ratio] 17.2 % High 11.6-14.6 [facility] Erythrocyte distribution wid th standard deviationOrdered By: Palmira Johnson on 10-13-2024 Erythrocyte distribution width (RBC) [Ratio] 52.0 fl High 35.1-43.9 [facility] Glomerular filtration rate ( GFR) estimation/1.73 sq m using serum, plasma, or whole bOrdered By: Palmira Johnson on 10-13-2024 GFR/1.73 sq M.predicted among non-blacks MDRD (S/P/Bld) [Vol rate/Area] 107 mL/min/{1.73_m2} >60 [facility] deOrdered By: Palmira Johnson on 10-13-2024 Glucose [Mass/Vol] 250 mg/dL High 74-106 [facility] Gram Stainon 10-13-2024 GS Acceptable Specimen? Yes (<25 Epithelial cells per/lpf) Gram Stain 2+ Gram positive cocci 1+ Yeast Like Organisms 3+ White Blood Cells Rare Epithelial cells Normal [facility] Comment on above: Performed By: #### M 100.2400, M100.2000 ####[facility] [address] [place], [address] Hematocrit Auto (Bld) [Volum e fraction]Ordered By: Palmira Johnson on 10-13-2024 Hematocrit (Bld) [Volume fraction] 36.6 % Low 40-54 [facility] Hemoglobin measurementOrdere d By: Palmira Johnson on 10-13-2024 Hemoglobin (Bld) [Mass/Vol] 10.1 g/dL Low 13.0-16.5 [facility] Immature granulocytes/100 WB C Auto (Bld)Ordered By: Palmira Johnson on 10-13-2024 Immature granulocytes/100 WBC (Bld) 1.500 % High 0.0-0.9 [facility] MCV (mean corpuscular volume ) determinationOrdered By: Palmira Johnson on 10-13-2024 MCV (RBC) [Entitic vol] 82.8 fL 80-94 [facility] Magnesiumon 10-13-2024 Magnesium [Mass/Vol] 2.0 mg/dL Normal 1.5-2.2 [facility] Comment on above: Performed By: #### L 500.2500, L501.5200 ####[facility] [address] [facility] [place], [place], [address] Magnesium measurement (mass/ volume)Ordered By: Palmira Johnson on 10-13-2024 Magnesium (Unsp spec) [Mass/Vol] 2.0 mg/dL 1.5-2.2 [facility] Mean corpuscular hemoglobin (MCH) determinationOrdered By: Palmira Johnson on 10-13-2024 MCH (RBC) [Entitic mass] 22.9 pg Low 27.0-32.0 [facility] Monocyte percentageOrdered B y: Palmira Johnson on 10-13-2024 Monocytes/100 WBC (Bld) 7.1 % 0-10 [facility] Neutrophil percentageOrdered By: Palmira Johnson on 10-13-2024 Neutrophils/100 WBC (Bld) 78.9 % High 47-70 [facility] Phosphoruson 10-13-2024 Phosphate [Mass/Vol] 3.1 mg/dL Normal 2.7-4.5 [facility] Comment on above: Performed By: #### L 501.2300, L100.0100 ####[facility] [address] [place], [place], [id number] Platelet countOrdered By: Nathan Johnson on 10-13-2024 Platelets (Bld) [#/Vol] 312 10*3/uL 150-450 [facility] Potassium measurement (mass/ volume)Ordered By: Palmira Johnson on 10-13-2024 Potassium (Unsp spec) [Mass/Vol] 4.7 mmol/L 3.3-5.1 [facility] RBC Auto (Bld) [#/Vol]Ordere d By: Palmira Johnson on 10-13-2024 RBC (Bld) [#/Vol] 4.42 10*6/uL Low 4.6-6.2 [facility] Serum creatinine measurement (mass/volume)Ordered By: Palmira Johnson on 10-13-2024 Creatinine [Mass/Vol] 0.70 mg/dL 0.70-1.20 [facility] Serum glucose measurement (m ass/volume)Ordered By: Palmira Johnson on 10-13-2024 Glucose [Mass/Vol] 340 mg/dL High 70-99 [facility] Serum or plasma calcium sarah urement (mass/volume)Ordered By: Palmira Johnson on 10-13-2024 Calcium [Mass/Vol] 8.9 mg/dL 7.6-11.0 [facility] Serum or plasma urea nitroge n measurement (mass/volume)Ordered By: Palmira Johnson on 10-13-2024 Urea nitrogen [Mass/Vol] 19 mg/dL 4-19 [facility] Sodium levelOrdered By: Yousif Johnson on 10-13-2024 Sodium [Moles/Vol] 136 mmol/L 133-145 [facility] White blood cell (WBC) count Ordered By: Palmira Johnson on 10-13-2024 WBC (Bld) [#/Vol] 6.7 10*3/uL 4.4-11.0 [facility] Absolute lymphocyte countOrd ered By: Srinivasa Salvador on 10-12-2024 Lymphocytes Auto (Unsp spec) [#/Vol] 1.47 10*3/uL 0.83-4.51 [facility] Anion gap in Serum or Plasma Ordered By: Srinivasa Salvador on 10-12-2024 Anion gap [Moles/Vol] 9 mmol/L 5-15 [facility] Automated lymphocyte count a s percentage of total leukocytesOrdered By: Srinivasa Salvador on 10-12-2024 Lymphocytes/100 WBC Auto (Unsp spec) 17.5 % Low 19-41 [facility] BUN/creatinine ratioOrdered By: Srinivasa Salvador on 10-12-2024 Urea nitrogen/Creatinine [Mass ratio] 34.0 mg/mg High 10- [facility] Basic Metabolic Profile (BMP )on 10-12-2024 BUN/CRE 34.0 RATIO High 03-04 [facility] Comment on above: Performed By: #### L 500.9207, L503.7507 ####[facility] [address] [place], [address] Calcium [Mass/Vol] 8.7 mg/dL Normal 7.6-11.0 [facility] Comment on above: Performed By: #### L 500.2500, L503.7505 ####[facility] [address] [place], [address] Chloride [Moles/Vol] 93 mmol/L Low 98-108 [facility] Comment on above: Performed By: #### L 500.2500, L503.7505 ####[facility] [address] [place], [address] CO2 [Moles/Vol] 31.3 mmol/L Normal 21.0-32.0 [facility] Comment on above: Performed By: #### L 500.2500, L503.7505 ####[facility] [address] [place], [address] Creatinine [Mass/Vol] 0.59 mg/dL Low 0.70-1.20 [facility] Comment on above: Performed By: #### L 500.2500, L503.7505 ####[facility] [address] [place], [address] ECRCL 208.01 ml/min Normal 50-250 [facility] Comment on above: Performed By: #### L 500.2500, L503.7505 ####[facility] [address] [place], [address] GAP 9 Normal 5-15 [facility] Comment on above: Performed By: #### L 500.2500, L503.7505 ####[facility] [address] [place], [address] GFR/1.73 sq M.predicted among non-blacks MDRD (S/P/Bld) [Vol rate/Area] 113 mL/min/{1.73_m2} Normal >60 [facility] Comment on above: Result Comment: mL/m in/1.73m2 CKD-EPI Creatinine Equation (2020) Performed By: #### L 500.2500, L503.7505 ####[facility] [address] [place], [address] Glucose [Mass/Vol] 175 mg/dL High 70-99 [facility] Comment on above: Performed By: #### L 500.2500, L503.7505 ####[facility] [address] [place], [address] Potassium [Moles/Vol] 4.8 mmol/L Normal 3.3-5.1 [facility] Comment on above: Performed By: #### L 500.2500, L503.7505 ####[facility] [address] [place], [address] Sodium [Moles/Vol] 133 mmol/L Normal 133-145 [facility] Comment on above: Performed By: #### L 500.2500, L503.7505 ####[facility] [address] [place], [address] Urea nitrogen [Mass/Vol] 20 mg/dL High 4-19 [facility] Comment on above: Performed By: #### L 500.2500, L503.7505 ####[facility] [address] [place], [address] Basophil percentageOrdered B y: Srinivasa Salvador on 10-12-2024 Basophils/100 WBC (Bld) 0.5 % 0-1 [facility] Bedside Glucoseon 10-12-2024 FINGERSTICK GLU 242 mg/dL High 74-106 [facility] Comment on above: Result Comment: BILL GEMENT OF PATIENT CARE PER NURSING PROTOCOL Performed By: #### L 501.080 ####[facility] [address] [place], [address] FINGERSTICK GLU 247 mg/dL High 74-106 [facility] Comment on above: Result Comment: BILL GEMENT OF PATIENT CARE PER NURSING PROTOCOL Performed By: #### L 501.080 ####[facility] [address] [place], [address] FINGERSTICK GLU 153 mg/dL High 74-106 [facility] Comment on above: Result Comment: BILL DELEON OF PATIENT CARE PER NURSING PROTOCOL Performed By: #### L 501.080 ####[facility] [address] [place], [address] Blood cultureOrdered By: Manuel Salvador on 10-12-2024 Bacteria identified Cx Nom (Bld) No growth in 5 days. [facility] Bacteria identified Cx Nom (Bld) No growth in 5 days. [facility] CBC W/Diff, Automatedon 09-15 Absolute Lymph 1.47 X10 3/uL Normal 0.83-4.51 [facility] Comment on above: Performed By: #### L 100.0100, L501.4021 ####[facility] [address] [place], [address] Absolute Neut 5.6 X10 3/uL Normal 2.0-7.7 [facility] Comment on above: Performed By: #### L 100.0100, L501.4021 ####[facility] [address] [place], [address] Basophils/100 WBC (Bld) 0.5 % Normal 0-1 [facility] Comment on above: Performed By: #### L 100.0100, L501.4021 ####[facility] [address] [place], [address] Eosinophils/100 WBC (Bld) 3.2 % Normal 0-5 [facility] Comment on above: Performed By: #### L 100.0100, L501.4021 ####[facility] [address] [place], [address] Erythrocyte distribution width (RBC) [Ratio] 17.6 % High 11.6-14.6 [facility] Comment on above: Performed By: #### L 100.0100, L501.4021 ####[facility] [address] [place], [address] Hematocrit (Bld) [Volume fraction] 34.8 % Low 40-54 [facility] Comment on above: Performed By: #### L 100.0100, L501.4021 ####[facility] [address] [place], [address] Hemoglobin (Bld) [Mass/Vol] 9.7 g/dL Low 13.0-16.5 [facility] Comment on above: Performed By: #### L 100.0100, L501.4021 ####[facility] [address] [place], [address] IG% 1.300 High 0.0-0.9 [facility] Comment on above: Result Comment: IG% - Immature Granulocytes (promyelocytes, myelocytes andmetamyelocytes) > 1% indicates that a LEFT SHIFT is Present. Performed By: #### L 100.0100, L501.4021 ####[facility] [address] [place], [address] Lymphocytes/100 WBC (Bld) 17.5 % Low 19-41 [facility] Comment on above: Performed By: #### L 100.0100, L501.4021 ####[facility] [address] [place], [address] MCH (RBC) [Entitic mass] 22.9 pg Low 27.0-32.0 [facility] Comment on above: Performed By: #### L 100.0100, L501.4021 ####[facility] [address] [place], [address] MCHC (RBC) [Mass/Vol] 27.9 g/dL Low 32-36 [facility] Comment on above: Performed By: #### L 100.0100, L501.4021 ####[facility] [address] [place], [address] MCV (RBC) [Entitic vol] 82.1 fL Normal 80-94 [facility] Comment on above: Performed By: #### L 100.0100, L501.4021 ####[facility] [address] [place], [address] Monocytes/100 WBC (Bld) 11.2 % High 0-10 [facility] Comment on above: Performed By: #### L 100.0100, L501.4021 ####[facility] [address] [place], [address] Neutrophils/100 WBC (Bld) 66.3 % Normal 47-70 [facility] Comment on above: Performed By: #### L 100.0100, L501.4021 ####[facility] [address] [place], [address] Nucleated RBC (Bld) [#/Vol] 0 10*3/uL Normal 0-5 [facility] Comment on above: Performed By: #### L 100.0100, L501.4021 ####[facility] [address] [place], [address] Platelet mean volume (Bld) [Entitic vol] 9.5 fL Normal 6.2-12.0 [facility] Comment on above: Performed By: #### L 100.0100, L501.4021 ####[facility] [address] [place], [address] Platelets (Bld) [#/Vol] 287 10*3/uL Normal 150-450 [facility] Comment on above: Performed By: #### L 100.0100, L501.4021 ####[facility] [address] [place], [address] RBC (Bld) [#/Vol] 4.24 10*6/uL Low 4.6-6.2 [facility] Comment on above: Performed By: #### L 100.0100, L501.4021 ####[facility] [facility] [address] [place], [address] RDW SD 52.8 fl High 35.1-43.9 [facility] Comment on above: Performed By: #### L 100.0100, L501.4021 ####[facility] [address] [place], [address] WBC (Bld) [#/Vol] 8.4 10*3/uL Normal 4.4-11.0 [facility] Comment on above: Performed By: #### L 100.0100, L501.4021 ####[facility] [address] [place], [address] CTA Chest W/WO Contraston CTA Chest W/WO Contrast Normal [facility] Carbon dioxide, total [Moles /volume] in Central venous bloodOrdered By: Srinivasa Salvador on 10-12-2024 CO2 [Moles/Vol] 31.3 mmol/L 21.0-32.0 [facility] Chest 1 View (Portable)on Chest 1 View (Portable) Normal [facility] Chloride assayOrdered By: Renzo Salvador on 10-12-2024 Chloride [Moles/Vol] 93 mmol/L Low 98-108 [facility] D-Dimer Quantitative (DVT/PE )on 10-12-2024 D-DIMER QUANT 0.90 FEU/ug/m Invalid Interpretation Code 0.27-0.49 [facility] Comment on above: Result Comment: CRIT ICAL VALUE CALLED TO Johanna Damian10/12/24 0953 Jazmín Gaffney.RESULTS READ BACK BY same.D-Dimer ELEVATED (>0.49): Additional studies and clinicalassessments are indicated to conclude diagnosis of:Deep Vein Thrombosis (DVT) or Pulmonary Embolism (PE) Performed By: #### L 300.8000 ####[facility] [address] [place], [address] Emergency Department Summary on 10-12-2024 Emergency Department Summary Normal [facility] Eosinophil percentageOrdered By: Srinivasa Salvador on 10-12-2024 Eosinophils/100 WBC (Bld) 3.2 % 0-5 [facility] Erythrocyte distribution wid th ratioOrdered By: Srinivasa Salvador on 10-12-2024 Erythrocyte distribution width (RBC) [Ratio] 17.6 % High 11.6-14.6 [facility] Erythrocyte distribution wid th standard deviationOrdered By: Srinivasa Salvador on 10-12-2024 Erythrocyte distribution width (RBC) [Ratio] 52.8 fl High 35.1-43.9 [facility] Glomerular filtration rate ( GFR) estimation/1.73 sq m using serum, plasma, or whole bOrdered By: Srinivasa Salvador on 10-12-2024 GFR/1.73 sq M.predicted among non-blacks MDRD (S/P/Bld) [Vol rate/Area] 113 mL/min/{1.73_m2} >60 [facility] Gram stainOrdered By: Palmira Johnson on 10-12-2024 Microscopic observation Gram stain Nom (Unsp spec) [facility] H AND P Exam - Hospitaliston 10-12-2024 H&P Exam - Hospitalist Normal [facility] Hematocrit Auto (Bld) [Volum e fraction]Ordered By: Srinivasa Salvador on 10-12-2024 Hematocrit (Bld) [Volume fraction] 34.8 % Low 40-54 [facility] Hemoglobin measurementOrdere d By: Srinivasa Salvador on 10-12-2024 Hemoglobin (Bld) [Mass/Vol] 9.7 g/dL Low 13.0-16.5 [facility] Immature granulocytes/100 WB C Auto (Bld)Ordered By: Srinivasa Salvador on 10-12-2024 Immature granulocytes/100 WBC (Bld) 1.300 % High 0.0-0.9 [facility] L499.0042on 10-12-2024 Trop T High Sen 102 ng/L Invalid Interpretation Code <=22 [facility] Comment on above: Result Comment: Crit ical Result(s) Called at 1124: by: MIREYA CARTER. Results read back by same. Performed By: #### L 499.0042 ####[facility] [address] [place], [address] L499.0043on 10-12-2024 Trop T High Sen 111 ng/L Invalid Interpretation Code <=22 [facility] Comment on above: Result Comment: Crit ical Result(s) Called at 1338: by: MIREYA SHABAZZ.??Results read back by same. Performed By: #### L 499.0043 ####[facility] [address] [place], [address] L501.4021on 10-12-2024 Trop T High Sen 107 ng/L Invalid Interpretation Code <=22 [facility] Comment on above: Result Comment: Crit ical Result(s) Called at 0823: by: MIREYA DOE. ??Results read back by same. Performed By: #### L 100.0100, L501.4021 ####[facility] [address] [place], [address] L503.7505on 10-12-2024 Natriuretic peptide B (Bld) [Mass/Vol] 158 pg/mL Normal <=900 [facility] Comment on above: Result Comment: Hear t Failure Unlikely: < 300 pg/mLHeart Failure Likely< 50 Years: > 450 pg/mL50-75 Years: > 900 pg/mL>75 Years: > 1800 pg/mL Performed By: #### L 500.2500, L503.7505 ####[facility] [address] [place], [place], [id number] Lactic Acidon 10-12-2024 Lactate [Moles/Vol] mmol/L Normal 0.0-2.0 [facility] Comment on above: Order Comment: Y Performed By: #### L 503.6005 ####[facility] [address] [place], [address] Legionella Antigen Urineon 0 10-12-2024 LEGU Normal [facility] Comment on above: Performed By: #### M 300.4500, M300.4600 ####[facility] [address] [place], [address] M100.019on 10-12-2024 M100.019 ORDER CHANGED TO PCR . SPECIMEN WAS PLACED IN VIRAL MEDIA BY FLOOR. UNABLE TO PERFORM RAPID ON VIRAL MEDIA. Pending SARS-CoV-2 (COVID 19) Negative Normal [facility] Comment on above: Performed By: #### M 100.019 ####[facility] [address], [address] MCV (mean corpuscular volume ) determinationOrdered By: Srinivasa Salvador on 10-12-2024 MCV (RBC) [Entitic vol] 82.1 fL 80-94 [facility] Mean corpuscular hemoglobin (MCH) determinationOrdered By: Srinivasa Salvador on 10-12-2024 MCH (RBC) [Entitic mass] 22.9 pg Low 27.0-32.0 [facility] Microbial respiratory cultur eOrdered By: Palmira Johnson on 10-12-2024 Microorganism identified Cx Nom (Unsp spec) Presumptive C albicans Abnormal [facility] Monocyte percentageOrdered B y: Srinivasa Salvador on 10-12-2024 Monocytes/100 WBC (Bld) 11.2 % High 0-10 [facility] Natriuretic peptide.B prohor mimi N-Terminal [Mass/volume] in Serum or PlasmaOrdered By: Srinivasa Salvador on 10-12-2024 Natriuretic peptide.B prohormone N-Terminal [Mass/Vol] 158 pg/mL <900 [facility] Neutrophil percentageOrdered By: Srinivasa Salvador on 10-12-2024 Neutrophils/100 WBC (Bld) 66.3 % 47-70 [facility] Platelet countOrdered By: Renzo Salvador on 10-12-2024 Platelets (Bld) [#/Vol] 287 10*3/uL 150-450 [facility] Potassium measurement (mass/ volume)Ordered By: Srinivasa Salvador on 10-12-2024 Potassium (Unsp spec) [Mass/Vol] 4.8 mmol/L 3.3-5.1 [facility] RBC Auto (Bld) [#/Vol]Ordere d By: Srinivasa Salvador on 10-12-2024 RBC (Bld) [#/Vol] 4.24 10*6/uL Low 4.6-6.2 [facility] RESPIRATORY PANEL MOLECULARo n 10-12-2024 RP PANEL Normal [facility] Comment on above: Performed By: #### M 100.638 ####[facility] [address] [place], [address] Respiratory pathogens detect ion panel by molecular detection methodOrdered By: Palmira Johnson on 10-12-2024 Respiratory pathogens DNA and RNA panel ABIGAIL+probe (Resp) Human Desmet Abnormal [facility] [id number] By: Palmira Johnson on 10-12-2024 SARS-CoV-2 (COVID-19) RNA ABIGAIL+probe Ql (Unsp spec) [facility] Serum creatinine measurement (mass/volume)Ordered By: Srinivasa Salvador on 10-12-2024 Creatinine [Mass/Vol] 0.59 mg/dL Low 0.70-1.20 [facility] Serum glucose measurement (m ass/volume)Ordered By: Srinivasa Salvador on 10-12-2024 Glucose [Mass/Vol] 175 mg/dL High 70-99 [facility] Serum or plasma calcium sarah urement (mass/volume)Ordered By: Srinivasa Salvador on 10-12-2024 Calcium [Mass/Vol] 8.7 mg/dL 7.6-11.0 [facility] Serum or plasma urea nitroge n measurement (mass/volume)Ordered By: Srinivasa Salvador on 10-12-2024 Urea nitrogen [Mass/Vol] 20 mg/dL High 4-19 [facility] Sodium levelOrdered By: Crow Salvador on 10-12-2024 Sodium [Moles/Vol] 133 mmol/L 133-145 [facility] Strep pneumoniae Antig(UR,CS F)on 10-12-2024 STPAG Normal [facility] Comment on above: Performed By: #### M 300.4500, M300.4600 ####[facility] [address] [place], [place], [id number] Troponin T.cardiac [Mass/vol ume] in Serum or Plasma by High sensitivity methodOrdered By: Srinivasa Salvador on 10-12-2024 Troponin T.cardiac High sensitivity method [Mass/Vol] 111 ng/L High <22 [facility] Troponin T.cardiac High sensitivity method [Mass/Vol] 102 ng/L High <22 [facility] Troponin T.cardiac High sensitivity method [Mass/Vol] 107 ng/L High <22 [facility] Urine Legionella pneumophila antigen detectionOrdered By: Palmira Johnson on 10-12-2024 L. pneumophila Ag Ql (U) [facility] White blood cell (WBC) count Ordered By: Srinivasa Salvador on 10-12-2024 WBC (Bld) [#/Vol] 8.4 10*3/uL 4.4-11.0 [facility] Absolute lymphocyte countOrd ered By: Rocio Bartlett on 10-09-2024 Lymphocytes Auto (Unsp spec) [#/Vol] 2.47 10*3/uL 0.83-4.51 [facility] Anion gap in Serum or Plasma Ordered By: Rocio Bartlett on 10-09-2024 Anion gap [Moles/Vol] 10 mmol/L 5-15 [facility] Automated lymphocyte count a s percentage of total leukocytesOrdered By: Rocio Bartlett on 10-09-2024 Lymphocytes/100 WBC Auto (Unsp spec) 25.4 % 19-41 [facility] BUN/creatinine ratioOrdered By: Rocio Bartlett on 10-09-2024 Urea nitrogen/Creatinine [Mass ratio] 20.7 mg/mg High 10-20 [facility] Basophil percentageOrdered B y: Rocio Bartlett on 10-09-2024 Basophils/100 WBC (Bld) 0.5 % 0-1 [facility] Carbon dioxide, total [Moles /volume] in Central venous bloodOrdered By: Rocio Bartlett on 10-09-2024 CO2 [Moles/Vol] 31.1 mmol/L 21.0-32.0 [facility] Chloride assayOrdered By: Coretta Bartlett on 10-09-2024 Chloride [Moles/Vol] 97 mmol/L Low 98-108 [facility] Eosinophil percentageOrdered By: Rocio Bartlett on 10-09-2024 Eosinophils/100 WBC (Bld) 3.3 % 0-5 [facility] Erythrocyte distribution wid th ratioOrdered By: Rocio Bartlett on 10-09-2024 Erythrocyte distribution width (RBC) [Ratio] 17.5 % High 11.6-14.6 [facility] Erythrocyte distribution wid th standard deviationOrdered By: Rocio Bartlett on 10-09-2024 Erythrocyte distribution width (RBC) [Ratio] 53.5 fl High 35.1-43.9 [facility] Glomerular filtration rate ( GFR) estimation/1.73 sq m using serum, plasma, or whole bOrdered By: Rocio Bartlett 10-09-2024 GFR/1.73 sq M.predicted among non-blacks MDRD (S/P/Bld) [Vol rate/Area] 108 mL/min/{1.73_m2} >60 [facility] Hematocrit Auto (Bld) [Volum e fraction]Ordered By: Rocio Bartlett 10-09-2024 Hematocrit (Bld) [Volume fraction] 36.2 % Low 40-54 [facility] Hemoglobin measurementOrdere d By: Rocio Bartlett 10-09-2024 Hemoglobin (Bld) [Mass/Vol] 9.9 g/dL Low 13.0-16.5 [facility] Immature granulocytes/100 WB C Auto (Bld)Ordered By: Rocio Bartlett 10-09-2024 Immature granulocytes/100 WBC (Bld) 0.700 % 0.0-0.9 [facility] MCV (mean corpuscular volume ) determinationOrdered By: Rocio Bartlett 10-09-2024 MCV (RBC) [Entitic vol] 83.4 fL 80-94 [facility] Mean corpuscular hemoglobin (MCH) determinationOrdered By: Rocio Bartlett 10-09-2024 MCH (RBC) [Entitic mass] 22.8 pg Low 27.0-32.0 [facility] Monocyte percentageOrdered B y: Rocio Bartlett on 10-09-2024 Monocytes/100 WBC (Bld) 8.3 % 0-10 [facility] Neutrophil percentageOrdered By: Rocio Bartlett on 10-09-2024 Neutrophils/100 WBC (Bld) 61.8 % 47-70 [facility] Platelet countOrdered By: Coretta sylvie Corneliusjanie on 10-09-2024 Platelets (Bld) [#/Vol] 327 10*3/uL 150-450 [facility] Potassium measurement (mass/ volume)Ordered By: Corettafannyamorfernanda Reardonjanie on 10-09-2024 Potassium (Unsp spec) [Mass/Vol] 4.6 mmol/L 3.3-5.1 [facility] RBC Auto (Bld) [#/Vol]Ordere d By: Rocio Corneliusjanie on 10-09-2024 RBC (Bld) [#/Vol] 4.34 10*6/uL Low 4.6-6.2 [facility] Serum creatinine measurement (mass/volume)Ordered By: Corettafannydilip Corneliusjanie on 10-09-2024 Creatinine [Mass/Vol] 0.69 mg/dL Low 0.70-1.20 [facility] Serum glucose measurement (m ass/volume)Ordered By: Rocio Reardonsmithmyranda on 10-09-2024 Glucose [Mass/Vol] 180 mg/dL High 70-99 [facility] Serum or plasma calcium sarah urement (mass/volume)Ordered By: Corettafannydilip Corneliussmithmyranda on 10-09-2024 Calcium [Mass/Vol] 8.8 mg/dL 7.6-11.0 [facility] Serum or plasma urea nitroge n measurement (mass/volume)Ordered By: Corettasylvie Reardonsmithmyranda on 10-09-2024 Urea nitrogen [Mass/Vol] 14 mg/dL 4-19 [facility] Sodium levelOrdered By: Mirtha dilip Dhruv on 10-09-2024 Sodium [Moles/Vol] 139 mmol/L 133-145 [facility] White blood cell (WBC) count Ordered By: Mirthaamorfernanda Reardonsmithmyranda on 10-09-2024 WBC (Bld) [#/Vol] 9.7 10*3/uL 4.4-11.0 [facility] Absolute lymphocyte countOrd ered By: Corettafannydilip Beanmyranda on 10-03-2024 Lymphocytes Auto (Unsp spec) [#/Vol] 2.06 10*3/uL 0.83-4.51 [facility] Anion gap in Serum or Plasma Ordered By: Rocio Reardonsmithmyranda on 10-03-2024 Anion gap [Moles/Vol] 10 mmol/L 5-15 [facility] Automated lymphocyte count a s percentage of total leukocytesOrdered By: Rocio Reardonsmithmyranda on 10-03-2024 Lymphocytes/100 WBC Auto (Unsp spec) 21.1 % 19-41 [facility] BUN/creatinine ratioOrdered By: fannyrobstownfernanda Reardonsmithmyranda on 10-03-2024 Urea nitrogen/Creatinine [Mass ratio] 28.7 mg/mg High 10-20 [facility] Basophil percentageOrdered B y: Rocio Beanmyranda on 10-03-2024 Basophils/100 WBC (Bld) 0.5 % 0-1 [facility] Carbon dioxide, total [Moles /volume] in Central venous bloodOrdered By: Mirthadilip Corneliussmithmyranda on 10-03-2024 CO2 [Moles/Vol] 32.8 mmol/L High 21.0-32.0 [facility] Chloride assayOrdered By: Coretta fannydilip Reardonsmithmyranda on 10-03-2024 Chloride [Moles/Vol] 95 mmol/L Low 98-108 [facility] Eosinophil percentageOrdered By: [facility] Reardonsmithmyranda on 10-03-2024 Eosinophils/100 WBC (Bld) 3.0 % 0-5 [facility] Erythrocyte distribution wid th ratioOrdered By: Corettafannydilip Corneliussmithmyranda on 10-03-2024 Erythrocyte distribution width (RBC) [Ratio] 17.4 % High 11.6-14.6 [facility] Erythrocyte distribution wid th standard deviationOrdered By: fannyrobstownfernanda Reardonsmithmyranda on 10-03-2024 Erythrocyte distribution width (RBC) [Ratio] 53.1 fl High 35.1-43.9 [facility] Glomerular filtration rate ( GFR) estimation/1.73 sq m using serum, plasma, or whole bOrdered By: Rocio Bartlett on 10-03-2024 GFR/1.73 sq M.predicted among non-blacks MDRD (S/P/Bld) [Vol rate/Area] 111 mL/min/{1.73_m2} >60 [facility] Hematocrit Auto (Bld) [Volum e fraction]Ordered By: Rocio Bartlett on 10-03-2024 Hematocrit (Bld) [Volume fraction] 35.8 % Low 40-54 [facility] Hemoglobin measurementOrdere d By: sylvie Bartlett on 10-03-2024 Hemoglobin (Bld) [Mass/Vol] 9.9 g/dL Low 13.0-16.5 [facility] Immature granulocytes/100 WB C Auto (Bld)Ordered By: Rocio Bartlett on 10-03-2024 Immature granulocytes/100 WBC (Bld) 0.900 % 0.0-0.9 [facility] MCV (mean corpuscular volume ) determinationOrdered By: Rocio Bartlett on 10-03-2024 MCV (RBC) [Entitic vol] 84.0 fL 80-94 [facility] Mean corpuscular hemoglobin (MCH) determinationOrdered By: fannyrobstownfernanda Bartlett on 10-03-2024 MCH (RBC) [Entitic mass] 23.2 pg Low 27.0-32.0 [facility] Monocyte percentageOrdered B y: Rocio Bartlett on 10-03-2024 Monocytes/100 WBC (Bld) 8.6 % 0-10 [facility] Neutrophil percentageOrdered By: [facility] Centerfer[facility]anda Bartlett on 10-03-2024 Neutrophils/100 WBC (Bld) 65.9 % 47-70 [facility] Platelet countOrdered By: Coretta Bartlett on 10-03-2024 Platelets (Bld) [#/Vol] 330 10*3/uL 150-450 [facility] Potassium measurement (mass/ volume)Ordered By: Rocio Bartlett on 10-03-2024 Potassium (Unsp spec) [Mass/Vol] 4.9 mmol/L 3.3-5.1 [facility] RBC Auto (Bld) [#/Vol]Ordere d By: Rocio Bartlett on 10-03-2024 RBC (Bld) [#/Vol] 4.26 10*6/uL Low 4.6-6.2 [facility] Serum creatinine measurement (mass/volume)Ordered By: Rocio Bartlett on 10-03-2024 Creatinine [Mass/Vol] 0.63 mg/dL Low 0.70-1.20 [facility] Serum glucose measurement (m ass/volume)Ordered By: Rocio Bartlett on 10-03-2024 Glucose [Mass/Vol] 191 mg/dL High 70-99 [facility] Serum or plasma calcium sarah urement (mass/volume)Ordered By: Rocio Bartlett on 10-03-2024 Calcium [Mass/Vol] 8.9 mg/dL 7.6-11.0 [facility] Serum or plasma urea nitroge n measurement (mass/volume)Ordered By: oRcio Bartlett on 10-03-2024 Urea nitrogen [Mass/Vol] 18 mg/dL 4-19 [facility] Sodium levelOrdered By: Mirtha covarrubiascjmyranda Bartlett on 10-03-2024 Sodium [Moles/Vol] 138 mmol/L 133-145 [facility] Urine Legionella pneumophila antigen detectionOrdered By: Rocio Bartlett on 10-03-2024 L. pneumophila Ag Ql (U) [facility] White blood cell (WBC) count Ordered By: Rocio Bartlett on 10-03-2024 WBC (Bld) [#/Vol] 9.8 10*3/uL 4.4-11.0 [facility] Absolute lymphocyte countOrd ered By: Rocio Bartlett on 10-01-2024 Lymphocytes Auto (Unsp spec) [#/Vol] 2.08 10*3/uL 0.83-4.51 [facility] Anion gap in Serum or Plasma Ordered By: Rocio Bartlett on 10-01-2024 Anion gap [Moles/Vol] 9 mmol/L 5-15 [facility] Automated lymphocyte count a s percentage of total leukocytesOrdered By: Rocio Bartlett on 10-01-2024 Lymphocytes/100 WBC Auto (Unsp spec) 23.6 % 19-41 [facility] BUN/creatinine ratioOrdered By: Rocio Bartlett on 10-01-2024 Urea nitrogen/Creatinine [Mass ratio] 22.7 mg/mg High 10-20 [facility] Basophil percentageOrdered B y: Rocio Bartlett on 10-01-2024 Basophils/100 WBC (Bld) 0.3 % 0-1 [facility] Carbon dioxide, total [Moles /volume] in Central venous bloodOrdered By: Rocio Bartlett on 10-01-2024 CO2 [Moles/Vol] 31.3 mmol/L 21.0-32.0 [facility] Chloride assayOrdered By: Coretta fannydilip Bartlett on 10-01-2024 Chloride [Moles/Vol] 95 mmol/L Low 98-108 [facility] Eosinophil percentageOrdered By: sylvie Bartlett on 10-01-2024 Eosinophils/100 WBC (Bld) 3.9 % 0-5 [facility] Erythrocyte distribution wid th ratioOrdered By: Rocio Bartlett on 10-01-2024 Erythrocyte distribution width (RBC) [Ratio] 17.4 % High 11.6-14.6 [facility] Erythrocyte distribution wid th standard deviationOrdered By: fannyrobstownfernanda Bartlett on 10-01-2024 Erythrocyte distribution width (RBC) [Ratio] 53.6 fl High 35.1-43.9 [facility] Glomerular filtration rate ( GFR) estimation/1.73 sq m using serum, plasma, or whole bOrdered By: Rocio Bartlett on 10-01-2024 GFR/1.73 sq M.predicted among non-blacks MDRD (S/P/Bld) [Vol rate/Area] 113 mL/min/{1.73_m2} >60 [facility] Hematocrit Auto (Bld) [Volum e fraction]Ordered By: Rocio Bartlett on 10-01-2024 Hematocrit (Bld) [Volume fraction] 37.6 % Low 40-54 [facility] Hemoglobin measurementOrdere d By: Rocio Bartlett on 10-01-2024 Hemoglobin (Bld) [Mass/Vol] 10.3 g/dL Low 13.0-16.5 [facility] Immature granulocytes/100 WB C Auto (Bld)Ordered By: Rocio Bartlett on 10-01-2024 Immature granulocytes/100 WBC (Bld) 0.800 % 0.0-0.9 [facility] MCV (mean corpuscular volume ) determinationOrdered By: Rocio Bartlett on 10-01-2024 MCV (RBC) [Entitic vol] 84.3 fL 80-94 [facility] Mean corpuscular hemoglobin (MCH) determinationOrdered By: Rocio Bartlett on 10-01-2024 MCH (RBC) [Entitic mass] 23.1 pg Low 27.0-32.0 [facility] Monocyte percentageOrdered B y: Rocio Bartlett on 10-01-2024 Monocytes/100 WBC (Bld) 9.0 % 0-10 [facility] Neutrophil percentageOrdered By: Rocio Bartlett on 10-01-2024 Neutrophils/100 WBC (Bld) 62.4 % 47-70 [facility] Platelet countOrdered By: Coretta fannydilip Bartlett on 10-01-2024 Platelets (Bld) [#/Vol] 345 10*3/uL 150-450 [facility] Potassium measurement (mass/ volume)Ordered By: Rocio Bartlett on 10-01-2024 Potassium (Unsp spec) [Mass/Vol] 4.6 mmol/L 3.3-5.1 [facility] RBC Auto (Bld) [#/Vol]Ordere d By: Rocio Bartlett on 10-01-2024 RBC (Bld) [#/Vol] 4.46 10*6/uL Low 4.6-6.2 [facility] Serum creatinine measurement (mass/volume)Ordered By: Rocio Bartlett on 10-01-2024 Creatinine [Mass/Vol] 0.59 mg/dL Low 0.70-1.20 [facility] Serum glucose measurement (m ass/volume)Ordered By: Rocio Bartlett on 10-01-2024 Glucose [Mass/Vol] 279 mg/dL High 70-99 [facility] Serum or plasma calcium sarah urement (mass/volume)Ordered By: Corettasylvie Reardonsmithmyranda on 10-01-2024 Calcium [Mass/Vol] 8.6 mg/dL 7.6-11.0 [facility] Serum or plasma urea nitroge n measurement (mass/volume)Ordered By: oRcio Bartlett on 10-01-2024 Urea nitrogen [Mass/Vol] 13 mg/dL 4-19 [facility] Sodium levelOrdered By: Mirtha cherry Corneliussmithmyranda on 10-01-2024 Sodium [Moles/Vol] 135 mmol/L 133-145 [facility] White blood cell (WBC) count Ordered By: Corettasylvie Bartlett on 10-01-2024 WBC (Bld) [#/Vol] 8.8 10*3/uL 4.4-11.0 [facility] Absolute lymphocyte countOrd ered By: Rocio Bartlett on 09-24-2024 Lymphocytes Auto (Unsp spec) [#/Vol] 2.53 10*3/uL 0.83-4.51 [facility] Anion gap in Serum or Plasma Ordered By: Rocio Bartlett on 09-24-2024 Anion gap [Moles/Vol] 11 mmol/L 5-15 [facility] Automated lymphocyte count a s percentage of total leukocytesOrdered By: Rocio Bartlett on 09-24-2024 Lymphocytes/100 WBC Auto (Unsp spec) 27.3 % 19-41 [facility] BUN/creatinine ratioOrdered By: Corettasylvie Bartlett on 09-24-2024 Urea nitrogen/Creatinine [Mass ratio] 23.7 mg/mg High 10-20 [facility] Basophil percentageOrdered B y: Jacquelinefernanda Reardonsmithmyranda on 09-24-2024 Basophils/100 WBC (Bld) 0.6 % 0-1 [facility] Carbon dioxide, total [Moles /volume] in Central venous bloodOrdered By: Rocio Bartlett on 09-24-2024 CO2 [Moles/Vol] 28.8 mmol/L 21.0-32.0 [facility] Chloride assayOrdered By: Coretta Bartlett on 09-24-2024 Chloride [Moles/Vol] 99 mmol/L 98-108 [facility] Eosinophil percentageOrdered By: Rocio Bartlett on 09-24-2024 Eosinophils/100 WBC (Bld) 3.7 % 0-5 [facility] Erythrocyte distribution wid th ratioOrdered By: Rocio Bartlett on 09-24-2024 Erythrocyte distribution width (RBC) [Ratio] 17.7 % High 11.6-14.6 [facility] Erythrocyte distribution wid th standard deviationOrdered By: Rocio Bartlett on 09-24-2024 Erythrocyte distribution width (RBC) [Ratio] 52.9 fl High 35.1-43.9 [facility] Glomerular filtration rate ( GFR) estimation/1.73 sq m using serum, plasma, or whole bOrdered By: Rocio Bartlett 09-24-2024 GFR/1.73 sq M.predicted among non-blacks MDRD (S/P/Bld) [Vol rate/Area] 106 mL/min/{1.73_m2} >60 [facility] Hematocrit Auto (Bld) [Volum e fraction]Ordered By: Rocio Bartlett 09-24-2024 Hematocrit (Bld) [Volume fraction] 39.3 % Low 40-54 [facility] Hemoglobin measurementOrdere d By: Rocio Bartlett 09-24-2024 Hemoglobin (Bld) [Mass/Vol] 11.1 g/dL Low 13.0-16.5 [facility] Immature granulocytes/100 WB C Auto (Bld)Ordered By: Rocio Bartlett on 09-24-2024 Immature granulocytes/100 WBC (Bld) 0.500 % 0.0-0.9 [facility] MCV (mean corpuscular volume ) determinationOrdered By: Rocio Bartlett 09-24-2024 MCV (RBC) [Entitic vol] 83.4 fL 80-94 [facility] Mean corpuscular hemoglobin (MCH) determinationOrdered By: Rocio Bartlett 09-24-2024 MCH (RBC) [Entitic mass] 23.6 pg Low 27.0-32.0 [facility] Monocyte percentageOrdered B y: Rocio Corneliusjanie on 09-24-2024 Monocytes/100 WBC (Bld) 9.1 % 0-10 [facility] Neutrophil percentageOrdered By: Corettafannydilip Corneliussmithmyranda on 09-24-2024 Neutrophils/100 WBC (Bld) 58.8 % 47-70 [facility] Platelet countOrdered By: Coretta sylvie Corneliussmithmyranda on 09-24-2024 Platelets (Bld) [#/Vol] 374 10*3/uL 150-450 [facility] Potassium measurement (mass/ volume)Ordered By: Rocio Bartlett on 09-24-2024 Potassium (Unsp spec) [Mass/Vol] 4.2 mmol/L 3.3-5.1 [facility] RBC Auto (Bld) [#/Vol]Ordere d By: Rocio Bartlett on 09-24-2024 RBC (Bld) [#/Vol] 4.71 10*6/uL 4.6-6.2 [facility] Serum creatinine measurement (mass/volume)Ordered By: Rocio Bartlett on 09-24-2024 Creatinine [Mass/Vol] 0.73 mg/dL 0.70-1.20 [facility] Serum glucose measurement (m ass/volume)Ordered By: Rocio Bartlett on 09-24-2024 Glucose [Mass/Vol] 192 mg/dL High 70-99 [facility] Serum or plasma calcium sarah urement (mass/volume)Ordered By: Rocio Bartlett on 09-24-2024 Calcium [Mass/Vol] 8.9 mg/dL 7.6-11.0 [facility] Serum or plasma urea nitroge n measurement (mass/volume)Ordered By: Rocio Bartlett on 09-24-2024 Urea nitrogen [Mass/Vol] 17 mg/dL 4-19 [facility] Sodium levelOrdered By: Mirtha covarrubiasliz Dhruv on 09-24-2024 Sodium [Moles/Vol] 139 mmol/L 133-145 [facility] White blood cell (WBC) count Ordered By: Rocio Bartlett on 09-24-2024 WBC (Bld) [#/Vol] 9.3 10*3/uL 4.4-11.0 [facility] Absolute lymphocyte countOrd ered By: Rocio Bartlett on 09-17-2024 Lymphocytes Auto (Unsp spec) [#/Vol] 3.13 10*3/uL 0.83-4.51 [facility] Anion gap in Serum or Plasma Ordered By: Rocio Bartlett on 09-17-2024 Anion gap [Moles/Vol] 14 mmol/L 5-15 [facility] Automated lymphocyte count a s percentage of total leukocytesOrdered By: Rocio Bartlett on 09-17-2024 Lymphocytes/100 WBC Auto (Unsp spec) 35.6 % 19-41 [facility] BUN/creatinine ratioOrdered By: sylvie Bartlett on 09-17-2024 Urea nitrogen/Creatinine [Mass ratio] 22.4 mg/mg High 10-20 [facility] Basophil percentageOrdered B y: Rocio Bartlett on 09-17-2024 Basophils/100 WBC (Bld) 0.8 % 0-1 [facility] Blood polychromasia detectio n by light microscopyOrdered By: sylvie Bartlett on 09-17-2024 Polychromasia LM Ql (Bld) 1+ [facility] Carbon dioxide, total [Moles /volume] in Central venous bloodOrdered By: Rocio Bartlett on 09-17-2024 CO2 [Moles/Vol] 21.8 mmol/L 21.0-32.0 [facility] Chloride assayOrdered By: Coretta Bartlett on 09-17-2024 Chloride [Moles/Vol] 98 mmol/L 98-108 [facility] Eosinophil percentageOrdered By: sylvie Bartlett on 09-17-2024 Eosinophils/100 WBC (Bld) 2.8 % 0-5 [facility] Erythrocyte distribution wid th ratioOrdered By: Rocio Bartlett on 09-17-2024 Erythrocyte distribution width (RBC) [Ratio] 16.9 % High 11.6-14.6 [facility] Erythrocyte distribution wid th standard deviationOrdered By: sylvie Bartlett on 09-17-2024 Erythrocyte distribution width (RBC) [Ratio] 47.4 fl High 35.1-43.9 [facility] Glomerular filtration rate ( GFR) estimation/1.73 sq m using serum, plasma, or whole bOrdered By: sylvie Bartlett on 09-17-2024 GFR/1.73 sq M.predicted among non-blacks MDRD (S/P/Bld) [Vol rate/Area] 104 mL/min/{1.73_m2} >60 [facility] Hematocrit Auto (Bld) [Volum e fraction]Ordered By: [facility] on 09-17-2024 Hematocrit (Bld) [Volume fraction] 30.7 % Low 40-54 [facility] Hemoglobin measurementOrdere d By: fannyrobstownfernanda Bartlett on 09-17-2024 Hemoglobin (Bld) [Mass/Vol] 11.5 g/dL Low 13.0-16.5 [facility] Immature granulocytes/100 WB C Auto (Bld)Ordered By: Rocio Bartlett on 09-17-2024 Immature granulocytes/100 WBC (Bld) 0.700 % 0.0-0.9 [facility] MCV (mean corpuscular volume ) determinationOrdered By: Rocio Bartlett on 09-17-2024 MCV (RBC) [Entitic vol] 91.1 fL 80-94 [facility] Mean corpuscular hemoglobin (MCH) determinationOrdered By: fannyrob[place]fernanda Bartlett on 09-17-2024 MCH (RBC) [Entitic mass] 34.1 pg High 27.0-32.0 [facility] Monocyte percentageOrdered B y: sylvie Bartlett on 09-17-2024 Monocytes/100 WBC (Bld) 8.1 % 0-10 [facility] Neutrophil percentageOrdered By: [facility] Center[facility] Bartlett on 09-17-2024 Neutrophils/100 WBC (Bld) 52.0 % 47-70 [facility] Platelet countOrdered By: Coretta dilip Bartlett on 09-17-2024 Platelets (Bld) [#/Vol] 274 10*3/uL 150-450 [facility] Platelet estimateOrdered By: Rocio Bartlett on 09-17-2024 Platelets LM Ql (Bld) A ADEQ [facility] Potassium measurement (mass/ volume)Ordered By: Rocio Bartlett on 09-17-2024 Potassium (Unsp spec) [Mass/Vol] 4.4 mmol/L 3.3-5.1 [facility] RBC Auto (Bld) [#/Vol]Ordere d By: Rocio Bartlett on 09-17-2024 RBC (Bld) [#/Vol] 3.37 10*6/uL Low 4.6-6.2 [facility] Serum creatinine measurement (mass/volume)Ordered By: Rocio Bartlett on 09-17-2024 Creatinine [Mass/Vol] 0.78 mg/dL 0.70-1.20 [facility] Serum glucose measurement (m ass/volume)Ordered By: Rocio Bartlett on 09-17-2024 Glucose [Mass/Vol] 187 mg/dL High 70-99 [facility] Serum or plasma calcium sarah urement (mass/volume)Ordered By: Rocio Bartlett on 09-17-2024 Calcium [Mass/Vol] 8.9 mg/dL 7.6-11.0 [facility] Serum or plasma urea nitroge n measurement (mass/volume)Ordered By: Rocio Bartlett on 09-17-2024 Urea nitrogen [Mass/Vol] 18 mg/dL 4-19 [facility] Sodium levelOrdered By: Mirtha Bartlett on 09-17-2024 Sodium [Moles/Vol] 134 mmol/L 133-145 [facility] White blood cell (WBC) count Ordered By: Rocio Bartlett on 09-17-2024 WBC (Bld) [#/Vol] 8.8 10*3/uL 4.4-11.0 [facility] Absolute lymphocyte countOrd ered By: Rocio Bartlett on 09-10-2024 Lymphocytes Auto (Unsp spec) [#/Vol] 2.39 10*3/uL 0.83-4.51 [facility] Absolute neutrophil countOrd ered By: Rocio Bartlett on 09-10-2024 Absolute neutrophil count 5.1 X10^3/uL 2.0-7.7 [facility] Anion gap [Moles/Vol]Ordered By: Rocio Bartlett on 09-10-2024 Anion gap in Serum or Plasma 11 - [facility] Anion gap in Serum or Plasma Ordered By: Rocio Bartlett on 09-10-2024 Anion gap [Moles/Vol] 11 mmol/L - [facility] Automated lymphocyte count a s percentage of total leukocytesOrdered By: Rocio Bartlett on 09-10-2024 Lymphocytes/100 WBC Auto (Unsp spec) 27.7 % 19-41 [facility] BUN/creatinine ratioOrdered By: Rocio Bartlett on 09-10-2024 Urea nitrogen/Creatinine [Mass ratio] 29.2 mg/mg High 10-20 [facility] BUN/creatinine ratio 29.2 RATIO High 10-20 [facility] Basophil percentageOrdered B y: Rocio Bartlett on 09-10-2024 Basophils/100 WBC (Bld) 0.5 % 0-1 [facility] Basophil percentage 0.5 % 0-1 [facility] Calcium [Mass/Vol]Ordered By : Rocio Bartlett on 09-10-2024 Serum or plasma calcium measurement (mass/volume) 8.8 mg/dL 7.6-11.0 [facility] Carbon dioxide, total [Moles /volume] in Central venous bloodOrdered By: Rocio Bartlett on 09-10-2024 CO2 [Moles/Vol] 30.9 mmol/L 21.0-32.0 [facility] Carbon dioxide, total [Moles/volume] in Central venous blood 30.9 mmol/L 21.0-32.0 [facility] Chloride assayOrdered By: Coretta Bartlett on 09-10-2024 Chloride [Moles/Vol] 97 mmol/L Low 98-108 [facility] Chloride assay 97 mmol/L Low 98-108 [facility] Creatinine [Mass/Vol]Ordered By: Rocio Bartlett on 09-10-2024 Serum creatinine measurement (mass/volume) 0.61 mg/dL Low 0.70-1.20 [facility] Eosinophil percentageOrdered By: Rocio Bartlett on 09-10-2024 Eosinophils/100 WBC (Bld) 2.9 % 0-5 [facility] Eosinophil percentage 2.9 % 0-5 [facility] Erythrocyte distribution wid th (RBC) [Ratio]Ordered By: Rocio Bartlett on 09-10-2024 Erythrocyte distribution width ratio 16.4 % High 11.6-14.6 [facility] Erythrocyte distribution width standard deviation 50.1 fl High 35.1-43.9 [facility] Erythrocyte distribution wid th ratioOrdered By: Rocio Bartlett on 09-10-2024 Erythrocyte distribution width (RBC) [Ratio] 16.4 % High 11.6-14.6 [facility] Erythrocyte distribution wid th standard deviationOrdered By: Rocio Bartlett on 09-10-2024 Erythrocyte distribution width (RBC) [Ratio] 50.1 fl High 35.1-43.9 [facility] GFR/1.73 sq M.predicted art g non-blacks MDRD (S/P/Bld) [Vol rate/Area]Ordered By: Rocio Bartlett on 09-10-2024 Glomerular filtration rate (GFR) estimation/1.73 sq m using serum, plasma, or whole b 112 >60 [facility] Glomerular filtration rate ( GFR) estimation/1.73 sq m using serum, plasma, or whole bOrdered By: Rocio Bartlett on 09-10-2024 GFR/1.73 sq M.predicted among non-blacks MDRD (S/P/Bld) [Vol rate/Area] 112 mL/min/{1.73_m2} >60 [facility] Glucose [Mass/Vol]Ordered By : Rocio Bartlett on 09-10-2024 Serum glucose measurement (mass/volume) 273 mg/dL High 70-99 [facility] Hematocrit Auto (Bld) [Volum e fraction]Ordered By: Rocio Bartlett on 09-10-2024 Hematocrit (Bld) [Volume fraction] 36.0 % Low 40-54 [facility] Automated blood hematocrit (percentage) 36.0 % Low 40-54 [facility] Hemoglobin measurementOrdere d By: Rocio Bartlett on 09-10-2024 Hemoglobin (Bld) [Mass/Vol] 10.2 g/dL Low 13.0-16.5 [facility] Hemoglobin measurement 10.2 g/dL Low 13.0-16.5 [facility] Immature granulocytes/100 WB C Auto (Bld)Ordered By: Rocio Bartlett on 09-10-2024 Immature granulocytes/100 WBC (Bld) 1.000 % High 0.0-0.9 [facility] Automated immature granulocyte percentage 1.000 % High 0.0-0.9 [facility] Lymphocytes Auto (Unsp spec) [#/Vol]Ordered By: Rocio Bartlett on 09-10-2024 Absolute lymphocyte count 2.39 X10^3/uL 0.83-4.51 [facility] Lymphocytes/100 WBC Auto (Un sp spec)Ordered By: Rocio Bartlett on 09-10-2024 Automated lymphocyte count as percentage of total leukocytes 27.7 % 19-41 [facility] MCV (RBC) [Entitic vol]Order ed By: Rocio Bartlett on 09-10-2024 MCV (mean corpuscular volume) determination 83.5 fL 80-94 [facility] MCV (mean corpuscular volume ) determinationOrdered By: Rocio Bartlett on 09-10-2024 MCV (RBC) [Entitic vol] 83.5 fL 80-94 [facility] Mean corpuscular hemoglobin (MCH) determinationOrdered By: Rocio Bartlett on 09-10-2024 MCH (RBC) [Entitic mass] 23.7 pg Low 27.0-32.0 [facility] Mean corpuscular hemoglobin (MCH) determination 23.7 pg Low 27.0-32.0 [facility] Mean corpuscular hemoglobin concentration (MCHC) determinationOrdered By: Rocio Bartlett on 09-10-2024 Mean corpuscular hemoglobin concentration (MCHC) determination 28.3 g/dL Low 32-36 [facility] Mean platelet volume determi nationOrdered By: Rocio Bartlett on 09-10-2024 Mean platelet volume determination 9.6 fl 6.2-12.0 [facility] Monocyte percentageOrdered B y: Rocio Bartlett on 09-10-2024 Monocytes/100 WBC (Bld) 8.5 % 0-10 [facility] Monocyte percentage 8.5 % 0-10 [facility] Neutrophil percentageOrdered By: Rocio Bartlett on 09-10-2024 Neutrophils/100 WBC (Bld) 59.4 % 47-70 [facility] Neutrophil percentage 59.4 % 47-70 [facility] Nucleated red blood cell per centageOrdered By: Corettafannydilip Corneliussmithmyranda on 09-10-2024 Nucleated red blood cell percentage 0 % 0-5 [facility] Platelet countOrdered By: Coretta sylvie Bartlett on 09-10-2024 Platelets (Bld) [#/Vol] 347 10*3/uL 150-450 [facility] Platelet count 347 K/mm3 150-450 [facility] Potassium (Unsp spec) [Mass/ Vol]Ordered By: Corettafannyamorfernanda Reardonsmithmyranda on 09-10-2024 Potassium measurement (mass/volume) 4.3 mmol/L 3.3-5.1 [facility] Potassium measurement (mass/ volume)Ordered By: Corettafannydilip Corneliusjanie on 09-10-2024 Potassium (Unsp spec) [Mass/Vol] 4.3 mmol/L 3.3-5.1 [facility] RBC Auto (Bld) [#/Vol]Ordere d By: Rocio Bartlett on 09-10-2024 RBC (Bld) [#/Vol] 4.31 10*6/uL Low 4.6-6.2 [facility] Automated blood erythrocyte count 4.31 M/mm3 Low 4.6-6.2 [facility] Serum creatinine measurement (mass/volume)Ordered By: Corettafannyamorfernanda Reardonsmithmyranda on 09-10-2024 Creatinine [Mass/Vol] 0.61 mg/dL Low 0.70-1.20 [facility] Serum glucose measurement (m ass/volume)Ordered By: Corettafannyamorfernanda Reardonsmithmyranda on 09-10-2024 Glucose [Mass/Vol] 273 mg/dL High 70-99 [facility] Serum or plasma calcium sarah urement (mass/volume)Ordered By: Rocio Bartlett on 09-10-2024 Calcium [Mass/Vol] 8.8 mg/dL 7.6-11.0 [facility] Serum or plasma urea nitroge n measurement (mass/volume)Ordered By: Rocio Bartlett on 09-10-2024 Urea nitrogen [Mass/Vol] 18 mg/dL 09-01 [facility] Sodium levelOrdered By: Mirtha markhammyranda Dhruv on 09-10-2024 Sodium [Moles/Vol] 138 mmol/L 133-145 [facility] Sodium level 138 mmol/L 133-145 [facility] Urea nitrogen [Mass/Vol]Orde red By: Rocio Bartlett on 09-10-2024 Serum or plasma urea nitrogen measurement (mass/volume) 18 mg/dL 09-01 [facility] White blood cell (WBC) count Ordered By: Rocio Bartlett on 09-10-2024 WBC (Bld) [#/Vol] 8.6 10*3/uL 4.4-11.0 [facility] White blood cell (WBC) count 8.6 K/mm3 4.4-11.0 [facility] Wound Cultureon 09-07-2024 WC Normal [facility] Comment on above: Performed By: #### M 100.4001, M100.3000, M1 ####[facility] [id number] [place], [place], [id number] Culture, Anaerobic Any Sourc derek 09-06-2024 CUAN Normal [facility] Comment on above: Performed By: #### M 100.4001, M100.3000, M1 ####[facility] [id number] [place], [address] Absolute lymphocyte countOrd ered By: Rocio Bartlett on 09-03-2024 Lymphocytes Auto (Unsp spec) [#/Vol] 2.89 10*3/uL 0.83-4.51 [facility] Absolute neutrophil countOrd ered By: Rocio Bartlett on 09-03-2024 Absolute neutrophil count 5.4 X10^3/uL 2.0-7.7 [facility] Anion gap [Moles/Vol]Ordered By: Rocio Bartlett on 09-03-2024 Anion gap in Serum or Plasma 12 - [facility] Anion gap in Serum or Plasma Ordered By: Rocio Bartlett on 09-03-2024 Anion gap [Moles/Vol] 12 mmol/L 09-27 [facility] Automated lymphocyte count a s percentage of total leukocytesOrdered By: Rocio Bartlett on 09-03-2024 Lymphocytes/100 WBC Auto (Unsp spec) 29.8 % - [facility] BUN/creatinine ratioOrdered By: Rocio Bartlett on 09-03-2024 Urea nitrogen/Creatinine [Mass ratio] 18.8 mg/mg 10- [facility] BUN/creatinine ratio 18.8 RATIO 10- [facility] Basophil percentageOrdered B y: Rocio Bartlett on 09-03-2024 Basophils/100 WBC (Bld) 0.6 % 0-1 [facility] Basophil percentage 0.6 % 0-1 [facility] Calcium [Mass/Vol]Ordered By : Rocio Bartlett on 09-03-2024 Serum or plasma calcium measurement (mass/volume) 8.7 mg/dL 7.6-11.0 [facility] Carbon dioxide, total [Moles /volume] in Central venous bloodOrdered By: Rocio Bartlett on 09-03-2024 CO2 [Moles/Vol] 28.8 mmol/L 21.0-32.0 [facility] Carbon dioxide, total [Moles/volume] in Central venous blood 28.8 mmol/L 21.0-32.0 [facility] Chloride assayOrdered By: Coretta Bartlett on 09-03-2024 Chloride [Moles/Vol] 94 mmol/L Low 98-108 [facility] Chloride assay 94 mmol/L Low 98-108 [facility] Creatinine [Mass/Vol]Ordered By: Rocio Bartlett on 09-03-2024 Serum creatinine measurement (mass/volume) 0.87 mg/dL 0.70-1.20 [facility] Eosinophil percentageOrdered By: Rocio Bartlett on 09-03-2024 Eosinophils/100 WBC (Bld) 3.4 % 0-5 [facility] Eosinophil percentage 3.4 % 0-5 [facility] Erythrocyte distribution wid th (RBC) [Ratio]Ordered By: Rocio Bartlett on 09-03-2024 Erythrocyte distribution width ratio 16.1 % High 11.6-14.6 [facility] Erythrocyte distribution width standard deviation 48.1 fl High 35.1-43.9 [facility] Erythrocyte distribution wid th ratioOrdered By: Rocio Bartlett on 09-03-2024 Erythrocyte distribution width (RBC) [Ratio] 16.1 % High 11.6-14.6 [facility] Erythrocyte distribution wid th standard deviationOrdered By: Rocio Bartlett on 09-03-2024 Erythrocyte distribution width (RBC) [Ratio] 48.1 fl High 35.1-43.9 [facility] GFR/1.73 sq M.predicted art g non-blacks MDRD (S/P/Bld) [Vol rate/Area]Ordered By: Rocio Bartlett on 09-03-2024 Glomerular filtration rate (GFR) estimation/1.73 sq m using serum, plasma, or whole b 101 >60 [facility] Glomerular filtration rate ( GFR) estimation/1.73 sq m using serum, plasma, or whole bOrdered By: Rocio Bartlett on 09-03-2024 GFR/1.73 sq M.predicted among non-blacks MDRD (S/P/Bld) [Vol rate/Area] 101 mL/min/{1.73_m2} >60 [facility] Glucose [Mass/Vol]Ordered By : Rocio Bartlett on 09-03-2024 Serum glucose measurement (mass/volume) 463 mg/dL High 70-99 [facility] Hematocrit Auto (Bld) [Volum e fraction]Ordered By: Rocio Bartlett on 09-03-2024 Hematocrit (Bld) [Volume fraction] 34.5 % Low 40-54 [facility] Automated blood hematocrit (percentage) 34.5 % Low 40-54 [facility] Hemoglobin measurementOrdere d By: Rocio Bartlett on 09-03-2024 Hemoglobin (Bld) [Mass/Vol] 10.1 g/dL Low 13.0-16.5 [facility] Hemoglobin measurement 10.1 g/dL Low 13.0-16.5 [facility] Immature granulocytes/100 WB C Auto (Bld)Ordered By: Rocio Bartlett on 09-03-2024 Immature granulocytes/100 WBC (Bld) 1.100 % High 0.0-0.9 [facility] Automated immature granulocyte percentage 1.100 % High 0.0-0.9 [facility] Lymphocytes Auto (Unsp spec) [#/Vol]Ordered By: Rocio Bartlett on 09-03-2024 Absolute lymphocyte count 2.89 X10^3/uL 0.83-4.51 [facility] Lymphocytes/100 WBC Auto (Un sp spec)Ordered By: Rocio Bartlett on 09-03-2024 Automated lymphocyte count as percentage of total leukocytes 29.8 % 19-41 [facility] MCV (RBC) [Entitic vol]Order ed By: Rocio Bartlett on 09-03-2024 MCV (mean corpuscular volume) determination 81.9 fL 80-94 [facility] MCV (mean corpuscular volume ) determinationOrdered By: Rocio Bartlett on 09-03-2024 MCV (RBC) [Entitic vol] 81.9 fL 80-94 [facility] Mean corpuscular hemoglobin (MCH) determinationOrdered By: Rocio Bartlett on 09-03-2024 MCH (RBC) [Entitic mass] 24.0 pg Low 27.0-32.0 [facility] Mean corpuscular hemoglobin (MCH) determination 24.0 pg Low 27.0-32.0 [facility] Mean corpuscular hemoglobin concentration (MCHC) determinationOrdered By: Rocio Bartlett on 09-03-2024 Mean corpuscular hemoglobin concentration (MCHC) determination 29.3 g/dL Low 32-36 [facility] Mean platelet volume determi nationOrdered By: Rocio Bartlett on 09-03-2024 Mean platelet volume determination 9.9 fl 6.2-12.0 [facility] Monocyte percentageOrdered B y: Rocio Bartlett on 09-03-2024 Monocytes/100 WBC (Bld) 9.2 % 0-10 [facility] Monocyte percentage 9.2 % 0-10 [facility] Neutrophil percentageOrdered By: Corettafannyamorfernanda Reardonsmithmyranda on 09-03-2024 Neutrophils/100 WBC (Bld) 55.9 % 47-70 [facility] Neutrophil percentage 55.9 % 47-70 [facility] Nucleated red blood cell per centageOrdered By: Rocio Reardonsmithmyranda on 09-03-2024 Nucleated red blood cell percentage 0 % 0-5 [facility] Platelet countOrdered By: Coretta sylvie Corneliussmithmyranda on 09-03-2024 Platelets (Bld) [#/Vol] 308 10*3/uL 150-450 [facility] Platelet count 308 K/mm3 150-450 [facility] Potassium (Unsp spec) [Mass/ Vol]Ordered By: Rocio Bartlett on 09-03-2024 Potassium measurement (mass/volume) 4.1 mmol/L 3.3-5.1 [facility] Potassium measurement (mass/ volume)Ordered By: Rocio Reardonsmithmyranda on 09-03-2024 Potassium (Unsp spec) [Mass/Vol] 4.1 mmol/L 3.3-5.1 [facility] RBC Auto (Bld) [#/Vol]Ordere d By: Mitrhaamorfernanda Reardonsmithmyranda on 09-03-2024 RBC (Bld) [#/Vol] 4.21 10*6/uL Low 4.6-6.2 [facility] Automated blood erythrocyte count 4.21 M/mm3 Low 4.6-6.2 [facility] Serum creatinine measurement (mass/volume)Ordered By: Rocio Bartlett on 09-03-2024 Creatinine [Mass/Vol] 0.87 mg/dL 0.70-1.20 [facility] Serum glucose measurement (m ass/volume)Ordered By: Rocio Bartlett on 09-03-2024 Glucose [Mass/Vol] 463 mg/dL High 70-99 [facility] Serum or plasma calcium sarah urement (mass/volume)Ordered By: Rocio Bartlett on 09-03-2024 Calcium [Mass/Vol] 8.7 mg/dL 7.6-11.0 [facility] Serum or plasma urea nitroge n measurement (mass/volume)Ordered By: Rocio Bartlett on 09-03-2024 Urea nitrogen [Mass/Vol] 16 mg/dL 09-01 [facility] Sodium levelOrdered By: Mirtha markhammyranda Dhruv on 09-03-2024 Sodium [Moles/Vol] 134 mmol/L 133-145 [facility] Sodium level 134 mmol/L 133-145 [facility] Urea nitrogen [Mass/Vol]Orde red By: Rocio Bartlett on 09-03-2024 Serum or plasma urea nitrogen measurement (mass/volume) 16 mg/dL 09-01 [facility] White blood cell (WBC) count Ordered By: Rocio Bartlett on 09-03-2024 WBC (Bld) [#/Vol] 9.7 10*3/uL 4.4-11.0 [facility] White blood cell (WBC) count 9.7 K/mm3 4.4-11.0 [facility] Gram Stainon 09-01-2024 GS List Antibiotics [place] 48 Hours? none List Antibiotics to be Started? none Gram Stain Rare Epithelial cells Rare White Blood Cells Rare Gram positive cocci Rare Gram negative rods Normal [facility] Comment on above: Performed By: #### M 100.4001, M100.3000, M100.2000 ####[facility] [id number] [place], [place], [id number] Anaerobic cultureOrdered By: Peter Thayer on 08-31-2024 Bacteria identified Anaer cx Nom (Unsp spec) Positive Abnormal [facility] Bacteria identified Anaer cx Nom (Unsp spec) Bacteroides fragilis Abnormal [facility] Bacteria identified Anaer cx Nom (Unsp spec) Bacteroides ovatus Abnormal [facility] Bacteria identified Anaer cx Nom (Unsp spec) Prevotella species Abnormal [facility] Bacteria identified Anaer cx Nom (Unsp spec)Ordered By: Peter Thayer on 08-31-2024 Anaerobic culture Positive Abnormal [facility] Anaerobic culture Bacteroides fragilis Abnormal [facility] Anaerobic culture Bacteroides ovatus Abnormal [facility] Anaerobic culture Prevotella species Abnormal [facility] Gram stainOrdered By: Peter curry on 08-31-2024 Microscopic observation Gram stain Nom (Unsp spec) [facility] Routine wound cultureOrdered By: Peter Thayer on 08-31-2024 Microbial culture, routine Klebsiella pneumoniae sp pneum Abnormal [facility] Microbial culture, routine Vancomycin Resist. E. faecalis Abnormal [facility] Routine wound culture Klebsiella pneumon iae sp pneum Abnormal [facility] Routine wound culture Proteus mirabilis Abnormal [facility] Routine wound culture Vancomycin Resist. E. faecalis Abnormal [facility] Routine wound culture Strep anginosus Abnormal [facility] Absolute lymphocyte countOrd ered By: Rocio Bartlett on 08-27-2024 Lymphocytes Auto (Unsp spec) [#/Vol] 2.87 10*3/uL 0.83-4.51 [facility] Absolute neutrophil countOrd ered By: Rocio Bartlett on 08-27-2024 Absolute neutrophil count 6.4 X10^3/uL 2.0-7.7 [facility] Anion gap [Moles/Vol]Ordered By: Rocio Bartlett on 08-27-2024 Anion gap in Serum or Plasma 12 09-27 [facility] Anion gap in Serum or Plasma Ordered By: Rocio Bartlett on 08-27-2024 Anion gap [Moles/Vol] 12 mmol/L 09-27 [facility] Automated lymphocyte count a s percentage of total leukocytesOrdered By: Rocio Bartlett on 08-27-2024 Lymphocytes/100 WBC Auto (Unsp spec) 26.7 % - [facility] BUN/creatinine ratioOrdered By: Rocio Bartlett on 08-27-2024 Urea nitrogen/Creatinine [Mass ratio] 18.9 mg/mg 10- [facility] BUN/creatinine ratio 18.9 RATIO 10-20 [facility] Basophil percentageOrdered B y: Rocio Bartlett on 08-27-2024 Basophils/100 WBC (Bld) 0.6 % 0-1 [facility] Basophil percentage 0.6 % 0-1 [facility] Calcium [Mass/Vol]Ordered By : Rocio Bartlett on 08-27-2024 Serum or plasma calcium measurement (mass/volume) 8.5 mg/dL 7.6-11.0 [facility] Carbon dioxide, total [Moles /volume] in Central venous bloodOrdered By: Rocio Bartlett on 08-27-2024 CO2 [Moles/Vol] 26.0 mmol/L 21.0-32.0 [facility] Carbon dioxide, total [Moles/volume] in Central venous blood 26.0 mmol/L 21.0-32.0 [facility] Chloride assayOrdered By: Coretta Bartlett on 08-27-2024 Chloride [Moles/Vol] 95 mmol/L Low 98-108 [facility] Chloride assay 95 mmol/L Low 98-108 [facility] Creatinine [Mass/Vol]Ordered By: Rocio Bartlett on 08-27-2024 Serum creatinine measurement (mass/volume) 0.64 mg/dL Low 0.70-1.20 [facility] Eosinophil percentageOrdered By: Rocio Bartlett on 08-27-2024 Eosinophils/100 WBC (Bld) 3.5 % 0-5 [facility] Eosinophil percentage 3.5 % 0-5 [facility] Erythrocyte distribution wid th (RBC) [Ratio]Ordered By: Rocio Bartlett on 08-27-2024 Erythrocyte distribution width ratio 15.9 % High 11.6-14.6 [facility] Erythrocyte distribution width standard deviation 47.7 fl High 35.1-43.9 [facility] Erythrocyte distribution wid th ratioOrdered By: Rocio Bartlett on 08-27-2024 Erythrocyte distribution width (RBC) [Ratio] 15.9 % High 11.6-14.6 [facility] Erythrocyte distribution wid th standard deviationOrdered By: Rocio Bartlett on 08-27-2024 Erythrocyte distribution width (RBC) [Ratio] 47.7 fl High 35.1-43.9 [facility] GFR/1.73 sq M.predicted art g non-blacks MDRD (S/P/Bld) [Vol rate/Area]Ordered By: Rocio Bartlett on 08-27-2024 Glomerular filtration rate (GFR) estimation/1.73 sq m using serum, plasma, or whole b 111 >60 [facility] Glomerular filtration rate ( GFR) estimation/1.73 sq m using serum, plasma, or whole bOrdered By: Rocio Bartlett on 08-27-2024 GFR/1.73 sq M.predicted among non-blacks MDRD (S/P/Bld) [Vol rate/Area] 111 mL/min/{1.73_m2} >60 [facility] Glucose [Mass/Vol]Ordered By : Rocio Bartlett on 08-27-2024 Serum glucose measurement (mass/volume) 351 mg/dL High 70-99 [facility] Hematocrit Auto (Bld) [Volum e fraction]Ordered By: Rocio Bartlett on 08-27-2024 Hematocrit (Bld) [Volume fraction] 35.2 % Low 40-54 [facility] Automated blood hematocrit (percentage) 35.2 % Low 40-54 [facility] Hemoglobin measurementOrdere d By: Rocio Bartlett on 08-27-2024 Hemoglobin (Bld) [Mass/Vol] 10.2 g/dL Low 13.0-16.5 [facility] Hemoglobin measurement 10.2 g/dL Low 13.0-16.5 [facility] Immature granulocytes/100 WB C Auto (Bld)Ordered By: Rocio Bartlett on 08-27-2024 Immature granulocytes/100 WBC (Bld) 0.500 % 0.0-0.9 [facility] Automated immature granulocyte percentage 0.500 % 0.0-0.9 [facility] Lymphocytes Auto (Unsp spec) [#/Vol]Ordered By: Rocio Bartlett on 08-27-2024 Absolute lymphocyte count 2.87 X10^3/uL 0.83-4.51 [facility] Lymphocytes/100 WBC Auto (Un sp spec)Ordered By: Rocio Bartlett on 08-27-2024 Automated lymphocyte count as percentage of total leukocytes 26.7 % 19-41 [facility] MCV (RBC) [Entitic vol]Order ed By: Rocio Bartlett on 08-27-2024 MCV (mean corpuscular volume) determination 81.9 fL 80-94 [facility] MCV (mean corpuscular volume ) determinationOrdered By: Rocio Bartlett on 08-27-2024 MCV (RBC) [Entitic vol] 81.9 fL 80-94 [facility] Mean corpuscular hemoglobin (MCH) determinationOrdered By: Rocio Bartlett on 08-27-2024 MCH (RBC) [Entitic mass] 23.7 pg Low 27.0-32.0 [facility] Mean corpuscular hemoglobin (MCH) determination 23.7 pg Low 27.0-32.0 [facility] Mean corpuscular hemoglobin concentration (MCHC) determinationOrdered By: Rocio Bartlett on 08-27-2024 Mean corpuscular hemoglobin concentration (MCHC) determination 29.0 g/dL Low 32-36 [facility] Mean platelet volume determi nationOrdered By: Rocio Bartlett on 08-27-2024 Mean platelet volume determination 9.6 fl 6.2-12.0 [facility] Monocyte percentageOrdered B y: Rocio Bartlett on 08-27-2024 Monocytes/100 WBC (Bld) 9.0 % 0-10 [facility] Monocyte percentage 9.0 % 0-10 [facility] Neutrophil percentageOrdered By: Rocio Bartlett on 08-27-2024 Neutrophils/100 WBC (Bld) 59.7 % 47-70 [facility] Neutrophil percentage 59.7 % 47-70 [facility] Nucleated red blood cell per centageOrdered By: Rocio Bartlett on 08-27-2024 Nucleated red blood cell percentage 0 % 0-5 [facility] Platelet countOrdered By: Coretta Bartlett on 08-27-2024 Platelets (Bld) [#/Vol] 336 10*3/uL 150-450 [facility] Platelet count 336 K/mm3 150-450 [facility] Potassium (Unsp spec) [Mass/ Vol]Ordered By: Rocio Bartlett on 08-27-2024 Potassium measurement (mass/volume) 3.9 mmol/L 3.3-5.1 [facility] Potassium measurement (mass/ volume)Ordered By: Rocio Bartlett on 08-27-2024 Potassium (Unsp spec) [Mass/Vol] 3.9 mmol/L 3.3-5.1 [facility] RBC Auto (Bld) [#/Vol]Ordere d By: Rocio Bartlett on 08-27-2024 RBC (Bld) [#/Vol] 4.30 10*6/uL Low 4.6-6.2 [facility] Automated blood erythrocyte count 4.30 M/mm3 Low 4.6-6.2 [facility] Serum creatinine measurement (mass/volume)Ordered By: Rocio Bartlett on 08-27-2024 Creatinine [Mass/Vol] 0.64 mg/dL Low 0.70-1.20 [facility] Serum glucose measurement (m ass/volume)Ordered By: Rocio Bartlett on 08-27-2024 Glucose [Mass/Vol] 351 mg/dL High 70-99 [facility] Serum or plasma calcium sarah urement (mass/volume)Ordered By: Rocio Bartlett on 08-27-2024 Calcium [Mass/Vol] 8.5 mg/dL 7.6-11.0 [facility] Serum or plasma urea nitroge n measurement (mass/volume)Ordered By: Rocio Bartlett on 08-27-2024 Urea nitrogen [Mass/Vol] 12 mg/dL - [facility] Sodium levelOrdered By: Mirtha Bartlett on 08-27-2024 Sodium [Moles/Vol] 133 mmol/L 133-145 [facility] Sodium level 133 mmol/L 133-145 [facility] Urea nitrogen [Mass/Vol]Orde red By: Rocio Bartlett on 08-27-2024 Serum or plasma urea nitrogen measurement (mass/volume) 12 mg/dL - [facility] White blood cell (WBC) count Ordered By: Rocio Bartlett on 08-27-2024 WBC (Bld) [#/Vol] 10.8 10*3/uL 4.4-11.0 [facility] White blood cell (WBC) count 10.8 K/mm3 4.4-11.0 [facility] Absolute lymphocyte countOrd ered By: Rocio Bartlett on 08-20-2024 Lymphocytes Auto (Unsp spec) [#/Vol] 3.04 10*3/uL 0.83-4.51 [facility] Absolute neutrophil countOrd ered By: Rocio Bartlett on 08-20-2024 Absolute neutrophil count 5.3 X10^3/uL 2.0-7.7 [facility] Anion gap [Moles/Vol]Ordered By: Rocio Bartlett on 08-20-2024 Anion gap in Serum or Plasma 11 5-15 [facility] Anion gap in Serum or Plasma Ordered By: Rocio Bartlett on 08-20-2024 Anion gap [Moles/Vol] 11 mmol/L 5- [facility] Automated lymphocyte count a s percentage of total leukocytesOrdered By: Rocio Bartlett on 08-20-2024 Lymphocytes/100 WBC Auto (Unsp spec) 31.8 % 19-41 [facility] BUN/creatinine ratioOrdered By: Rocio Bartlett on 08-20-2024 Urea nitrogen/Creatinine [Mass ratio] 26.1 mg/mg High 10-20 [facility] BUN/creatinine ratio 26.1 RATIO High 10-20 [facility] Basophil percentageOrdered B y: Rocio Bartlett on 08-20-2024 Basophils/100 WBC (Bld) 0.8 % 0-1 [facility] Basophil percentage 0.8 % 0-1 [facility] Calcium [Mass/Vol]Ordered By : Rocio Bartlett on 08-20-2024 Serum or plasma calcium measurement (mass/volume) 9.1 mg/dL 7.6-11.0 [facility] Carbon dioxide, total [Moles /volume] in Central venous bloodOrdered By: Rocio Bartlett on 08-20-2024 CO2 [Moles/Vol] 27.5 mmol/L 21.0-32.0 [facility] Carbon dioxide, total [Moles/volume] in Central venous blood 27.5 mmol/L 21.0-32.0 [facility] Chloride assayOrdered By: Coretta Bartlett on 08-20-2024 Chloride [Moles/Vol] 96 mmol/L Low 98-108 [facility] Chloride assay 96 mmol/L Low 98-108 [facility] Creatinine [Mass/Vol]Ordered By: Rocio Bartlett on 08-20-2024 Serum creatinine measurement (mass/volume) 0.64 mg/dL Low 0.70-1.20 [facility] Eosinophil percentageOrdered By: Rocio Bartlett on 08-20-2024 Eosinophils/100 WBC (Bld) 3.8 % 0-5 [facility] Eosinophil percentage 3.8 % 0-5 [facility] Erythrocyte distribution wid th (RBC) [Ratio]Ordered By: Rocio Bartlett on 08-20-2024 Erythrocyte distribution width ratio 16.1 % High 11.6-14.6 [facility] Erythrocyte distribution width standard deviation 48.7 fl High 35.1-43.9 [facility] Erythrocyte distribution wid th ratioOrdered By: Rocio Bartlett on 08-20-2024 Erythrocyte distribution width (RBC) [Ratio] 16.1 % High 11.6-14.6 [facility] Erythrocyte distribution wid th standard deviationOrdered By: Rocio Bartlett on 08-20-2024 Erythrocyte distribution width (RBC) [Ratio] 48.7 fl High 35.1-43.9 [facility] GFR/1.73 sq M.predicted art g non-blacks MDRD (S/P/Bld) [Vol rate/Area]Ordered By: Rocio Bartlett on 08-20-2024 Glomerular filtration rate (GFR) estimation/1.73 sq m using serum, plasma, or whole b 110 >60 [facility] Glomerular filtration rate ( GFR) estimation/1.73 sq m using serum, plasma, or whole bOrdered By: Rocio Bartlett on 08-20-2024 GFR/1.73 sq M.predicted among non-blacks MDRD (S/P/Bld) [Vol rate/Area] 110 mL/min/{1.73_m2} >60 [facility] Glucose [Mass/Vol]Ordered By : Rocio Bartlett on 08-20-2024 Serum glucose measurement (mass/volume) 323 mg/dL High 70-99 [facility] Hematocrit Auto (Bld) [Volum e fraction]Ordered By: Rocio Bartlett on 08-20-2024 Hematocrit (Bld) [Volume fraction] 35.1 % Low 40-54 [facility] Automated blood hematocrit (percentage) 35.1 % Low 40-54 [facility] Hemoglobin measurementOrdere d By: Rocio Bartlett on 08-20-2024 Hemoglobin (Bld) [Mass/Vol] 10.1 g/dL Low 13.0-16.5 [facility] Hemoglobin measurement 10.1 g/dL Low 13.0-16.5 [facility] Immature granulocytes/100 WB C Auto (Bld)Ordered By: Rocio Bartlett on 08-20-2024 Immature granulocytes/100 WBC (Bld) 0.700 % 0.0-0.9 [facility] Automated immature granulocyte percentage 0.700 % 0.0-0.9 [facility] Lymphocytes Auto (Unsp spec) [#/Vol]Ordered By: Rocio Bartlett on 08-20-2024 Absolute lymphocyte count 3.04 X10^3/uL 0.83-4.51 [facility] Lymphocytes/100 WBC Auto (Un sp spec)Ordered By: Rocio Bartlett on 08-20-2024 Automated lymphocyte count as percentage of total leukocytes 31.8 % 19-41 [facility] MCV (RBC) [Entitic vol]Order ed By: Rocio Bartlett on 08-20-2024 MCV (mean corpuscular volume) determination 83.4 fL 80-94 [facility] MCV (mean corpuscular volume ) determinationOrdered By: Rocio Bartlett on 08-20-2024 MCV (RBC) [Entitic vol] 83.4 fL 80-94 [facility] Mean corpuscular hemoglobin (MCH) determinationOrdered By: Rocio Bartlett on 08-20-2024 MCH (RBC) [Entitic mass] 24.0 pg Low 27.0-32.0 [facility] Mean corpuscular hemoglobin (MCH) determination 24.0 pg Low 27.0-32.0 [facility] Mean corpuscular hemoglobin concentration (MCHC) determinationOrdered By: Rocio Bartlett on 08-20-2024 Mean corpuscular hemoglobin concentration (MCHC) determination 28.8 g/dL Low 32-36 [facility] Mean platelet volume determi nationOrdered By: Rocio Bartlett on 08-20-2024 Mean platelet volume determination 9.6 fl 6.2-12.0 [facility] Monocyte percentageOrdered B y: Rocio Bartlett on 08-20-2024 Monocytes/100 WBC (Bld) 7.6 % 0-10 [facility] Monocyte percentage 7.6 % 0-10 [facility] Neutrophil percentageOrdered By: Rocio Bartlett on 08-20-2024 Neutrophils/100 WBC (Bld) 55.3 % 47-70 [facility] Neutrophil percentage 55.3 % 47-70 [facility] Nucleated red blood cell per centageOrdered By: Rocio Bartlett on 08-20-2024 Nucleated red blood cell percentage 0 % 0-5 [facility] Platelet countOrdered By: Coretta Bartlett on 08-20-2024 Platelets (Bld) [#/Vol] 362 10*3/uL 150-450 [facility] Platelet count 362 K/mm3 150-450 [facility] Potassium (Unsp spec) [Mass/ Vol]Ordered By: Rocio Bartlett on 08-20-2024 Potassium measurement (mass/volume) 4.2 mmol/L 3.3-5.1 [facility] Potassium measurement (mass/ volume)Ordered By: Rocio Bartlett on 08-20-2024 Potassium (Unsp spec) [Mass/Vol] 4.2 mmol/L 3.3-5.1 [facility] RBC Auto (Bld) [#/Vol]Ordere d By: Rocio Bartlett on 08-20-2024 RBC (Bld) [#/Vol] 4.21 10*6/uL Low 4.6-6.2 [facility] Automated blood erythrocyte count 4.21 M/mm3 Low 4.6-6.2 [facility] Serum creatinine measurement (mass/volume)Ordered By: Rocio Bartlett on 08-20-2024 Creatinine [Mass/Vol] 0.64 mg/dL Low 0.70-1.20 [facility] Serum glucose measurement (m ass/volume)Ordered By: Rocio Bartlett on 08-20-2024 Glucose [Mass/Vol] 323 mg/dL High 70-99 [facility] Serum or plasma calcium sarah urement (mass/volume)Ordered By: Rocio Bartlett on 08-20-2024 Calcium [Mass/Vol] 9.1 mg/dL 7.6-11.0 [facility] Serum or plasma urea nitroge n measurement (mass/volume)Ordered By: Rocio Bartlett on 08-20-2024 Urea nitrogen [Mass/Vol] 17 mg/dL - [facility] Sodium levelOrdered By: Mirtha Bartlett on 08-20-2024 Sodium [Moles/Vol] 135 mmol/L 133-145 [facility] Sodium level 135 mmol/L 133-145 [facility] Urea nitrogen [Mass/Vol]Orde red By: Rocio Bartlett on 08-20-2024 Serum or plasma urea nitrogen measurement (mass/volume) 17 mg/dL 4- [facility] White blood cell (WBC) count Ordered By: Rocio Bartlett on 08-20-2024 WBC (Bld) [#/Vol] 9.6 10*3/uL 4.4-11.0 [facility] White blood cell (WBC) count 9.6 K/mm3 4.4-11.0 [facility] Wound Ctr History AND Physic lilliana 08-17-2024 Wound Ctr History & Physical Normal [facility] Absolute lymphocyte countOrd ered By: Rocio Bartlett on 08-13-2024 Lymphocytes Auto (Unsp spec) [#/Vol] 2.40 10*3/uL 0.83-4.51 [facility] Absolute neutrophil countOrd ered By: Rocio Bartlett on 08-13-2024 Absolute neutrophil count 6.9 X10^3/uL 2.0-7.7 [facility] Anion gap [Moles/Vol]Ordered By: Rocio Bartlett on 08-13-2024 Anion gap in Serum or Plasma 12 5-15 [facility] Anion gap in Serum or Plasma Ordered By: Rocio Bartlett on 08-13-2024 Anion gap [Moles/Vol] 12 mmol/L 5-15 [facility] Automated lymphocyte count a s percentage of total leukocytesOrdered By: Rocio Bartlett on 08-13-2024 Lymphocytes/100 WBC Auto (Unsp spec) 22.0 % 19-41 [facility] BUN/creatinine ratioOrdered By: Rocio Bartlett on 08-13-2024 Urea nitrogen/Creatinine [Mass ratio] 22.2 mg/mg High 10-20 [facility] BUN/creatinine ratio 22.2 RATIO High 10-20 [facility] Basophil percentageOrdered B y: Rocio Bartlett on 08-13-2024 Basophils/100 WBC (Bld) 0.7 % 0-1 [facility] Basophil percentage 0.7 % 0-1 [facility] Calcium [Mass/Vol]Ordered By : Rocio Bartlett on 08-13-2024 Serum or plasma calcium measurement (mass/volume) 9.0 mg/dL 7.6-11.0 [facility] Carbon dioxide, total [Moles /volume] in Central venous bloodOrdered By: Rocio Bartlett on 08-13-2024 CO2 [Moles/Vol] 28.2 mmol/L 21.0-32.0 [facility] Carbon dioxide, total [Moles/volume] in Central venous blood 28.2 mmol/L 21.0-32.0 [facility] Chloride assayOrdered By: Coretta Bartlett on 08-13-2024 Chloride [Moles/Vol] 95 mmol/L Low 98-108 [facility] Chloride assay 95 mmol/L Low 98-108 [facility] Creatinine [Mass/Vol]Ordered By: Rocio Bartlett on 08-13-2024 Serum creatinine measurement (mass/volume) 0.72 mg/dL 0.70-1.20 [facility] Eosinophil percentageOrdered By: Rocio Bartlett on 08-13-2024 Eosinophils/100 WBC (Bld) 3.2 % 0-5 [facility] Eosinophil percentage 3.2 % 0-5 [facility] Erythrocyte distribution wid th (RBC) [Ratio]Ordered By: Rocio Bartlett on 08-13-2024 Erythrocyte distribution width ratio 16.1 % High 11.6-14.6 [facility] Erythrocyte distribution width standard deviation 49.3 fl High 35.1-43.9 [facility] Erythrocyte distribution wid th ratioOrdered By: Rocio Bartlett on 08-13-2024 Erythrocyte distribution width (RBC) [Ratio] 16.1 % High 11.6-14.6 [facility] Erythrocyte distribution wid th standard deviationOrdered By: Rocio Bartlett on 08-13-2024 Erythrocyte distribution width (RBC) [Ratio] 49.3 fl High 35.1-43.9 [facility] GFR/1.73 sq M.predicted art g non-blacks MDRD (S/P/Bld) [Vol rate/Area]Ordered By: Rocio Bartlett on 08-13-2024 Glomerular filtration rate (GFR) estimation/1.73 sq m using serum, plasma, or whole b 107 >60 [facility] Glomerular filtration rate ( GFR) estimation/1.73 sq m using serum, plasma, or whole bOrdered By: Rocio Bartlett on 08-13-2024 GFR/1.73 sq M.predicted among non-blacks MDRD (S/P/Bld) [Vol rate/Area] 107 mL/min/{1.73_m2} >60 [facility] Glucose [Mass/Vol]Ordered By : Rocio Bartlett on 08-13-2024 Serum glucose measurement (mass/volume) 252 mg/dL High 70-99 [facility] Hematocrit Auto (Bld) [Volum e fraction]Ordered By: Rocio Bartlett on 08-13-2024 Hematocrit (Bld) [Volume fraction] 35.1 % Low 40-54 [facility] Automated blood hematocrit (percentage) 35.1 % Low 40-54 [facility] Hemoglobin measurementOrdere d By: Rocio Bartlett on 08-13-2024 Hemoglobin (Bld) [Mass/Vol] 10.3 g/dL Low 13.0-16.5 [facility] Hemoglobin measurement 10.3 g/dL Low 13.0-16.5 [facility] Immature granulocytes/100 WB C Auto (Bld)Ordered By: Rocio Bartlett on 08-13-2024 Immature granulocytes/100 WBC (Bld) 1.100 % High 0.0-0.9 [facility] Automated immature granulocyte percentage 1.100 % High 0.0-0.9 [facility] Lymphocytes Auto (Unsp spec) [#/Vol]Ordered By: Rocio Bartltet on 08-13-2024 Absolute lymphocyte count 2.40 X10^3/uL 0.83-4.51 [facility] Lymphocytes/100 WBC Auto (Un sp spec)Ordered By: Rocio Bartlett on 08-13-2024 Automated lymphocyte count as percentage of total leukocytes 22.0 % 19-41 [facility] MCV (RBC) [Entitic vol]Order ed By: Rocio Bartlett on 08-13-2024 MCV (mean corpuscular volume) determination 84.0 fL 80-94 [facility] MCV (mean corpuscular volume ) determinationOrdered By: Rocio Bartlett on 08-13-2024 MCV (RBC) [Entitic vol] 84.0 fL 80-94 [facility] Mean corpuscular hemoglobin (MCH) determinationOrdered By: Rocio Bartlett on 08-13-2024 MCH (RBC) [Entitic mass] 24.6 pg Low 27.0-32.0 [facility] Mean corpuscular hemoglobin (MCH) determination 24.6 pg Low 27.0-32.0 [facility] Mean corpuscular hemoglobin concentration (MCHC) determinationOrdered By: Rocio Bartlett on 08-13-2024 Mean corpuscular hemoglobin concentration (MCHC) determination 29.3 g/dL Low 32-36 [facility] Mean platelet volume determi nationOrdered By: Rocio Bartlett on 08-13-2024 Mean platelet volume determination 9.7 fl 6.2-12.0 [facility] Monocyte percentageOrdered B y: Rocio Bartlett on 08-13-2024 Monocytes/100 WBC (Bld) 9.9 % 0-10 [facility] Monocyte percentage 9.9 % 0-10 [facility] Neutrophil percentageOrdered By: Rocio Bartlett on 08-13-2024 Neutrophils/100 WBC (Bld) 63.1 % 47-70 [facility] Neutrophil percentage 63.1 % 47-70 [facility] Nucleated red blood cell per centageOrdered By: Rocio Bartlett on 08-13-2024 Nucleated red blood cell percentage 0 % 0-5 [facility] Platelet countOrdered By: Coretta Bartlett on 08-13-2024 Platelets (Bld) [#/Vol] 340 10*3/uL 150-450 [facility] Platelet count 340 K/mm3 150-450 [facility] Potassium (Unsp spec) [Mass/ Vol]Ordered By: Rocio Bartlett on 08-13-2024 Potassium measurement (mass/volume) 4.2 mmol/L 3.3-5.1 [facility] Potassium measurement (mass/ volume)Ordered By: Rocio Bartlett on 08-13-2024 Potassium (Unsp spec) [Mass/Vol] 4.2 mmol/L 3.3-5.1 [facility] RBC Auto (Bld) [#/Vol]Ordere d By: Rocio Bartlett on 08-13-2024 RBC (Bld) [#/Vol] 4.18 10*6/uL Low 4.6-6.2 [facility] Automated blood erythrocyte count 4.18 M/mm3 Low 4.6-6.2 [facility] Serum creatinine measurement (mass/volume)Ordered By: Rocio Bartlett on 08-13-2024 Creatinine [Mass/Vol] 0.72 mg/dL 0.70-1.20 [facility] Serum glucose measurement (m ass/volume)Ordered By: Rocio Bartlett on 08-13-2024 Glucose [Mass/Vol] 252 mg/dL High 70-99 [facility] Serum or plasma calcium sarha urement (mass/volume)Ordered By: Rocio Bartlett on 08-13-2024 Calcium [Mass/Vol] 9.0 mg/dL 7.6-11.0 [facility] Serum or plasma urea nitroge n measurement (mass/volume)Ordered By: Rocio Bartlett on 08-13-2024 Urea nitrogen [Mass/Vol] 16 mg/dL 09-01 [facility] Sodium levelOrdered By: Mirtha Bartlett on 08-13-2024 Sodium [Moles/Vol] 135 mmol/L 133-145 [facility] Sodium level 135 mmol/L 133-145 [facility] Urea nitrogen [Mass/Vol]Orde red By: Rocio Bartlett on 08-13-2024 Serum or plasma urea nitrogen measurement (mass/volume) 16 mg/dL 09-01 [facility] White blood cell (WBC) count Ordered By: Rocio Bartlett on 08-13-2024 WBC (Bld) [#/Vol] 10.9 10*3/uL 4.4-11.0 [facility] White blood cell (WBC) count 10.9 K/mm3 4.4-11.0 [facility] Absolute lymphocyte countOrd ered By: Rocio Bartlett on 08-06-2024 Lymphocytes Auto (Unsp spec) [#/Vol] 2.89 10*3/uL 0.83-4.51 [facility] Absolute neutrophil countOrd ered By: Rocio Bartlett on 08-06-2024 Absolute neutrophil count 4.0 X10^3/uL 2.0-7.7 [facility] Anion gap [Moles/Vol]Ordered By: Rocio Bartlett on 08-06-2024 Anion gap in Serum or Plasma 12 5- [facility] Anion gap in Serum or Plasma Ordered By: Rocio Bartlett on 08-06-2024 Anion gap [Moles/Vol] 12 mmol/L 09-27 [facility] Automated lymphocyte count a s percentage of total leukocytesOrdered By: Rocio Bartlett on 08-06-2024 Lymphocytes/100 WBC Auto (Unsp spec) 35.6 % [facility] BUN/creatinine ratioOrdered By: Rocio Bartlett on 08-06-2024 Urea nitrogen/Creatinine [Mass ratio] 24.3 mg/mg High 10-20 [facility] BUN/creatinine ratio 24.3 RATIO High 10-20 [facility] Basophil percentageOrdered B y: Rocio Bartlett on 08-06-2024 Basophils/100 WBC (Bld) 0.7 % 0-1 [facility] Basophil percentage 0.7 % 0-1 [facility] Calcium [Mass/Vol]Ordered By : Rocio Bartlett on 08-06-2024 Serum or plasma calcium measurement (mass/volume) 8.9 mg/dL 7.6-11.0 [facility] Carbon dioxide, total [Moles /volume] in Central venous bloodOrdered By: Rocio Bartlett on 08-06-2024 CO2 [Moles/Vol] 26.7 mmol/L 21.0-32.0 [facility] Carbon dioxide, total [Moles/volume] in Central venous blood 26.7 mmol/L 21.0-32.0 [facility] Chloride assayOrdered By: Coretta Bartlett on 08-06-2024 Chloride [Moles/Vol] 97 mmol/L Low 98-108 [facility] Chloride assay 97 mmol/L Low 98-108 [facility] Creatinine [Mass/Vol]Ordered By: Rocio Bartlett on 08-06-2024 Serum creatinine measurement (mass/volume) 0.60 mg/dL Low 0.70-1.20 [facility] Eosinophil percentageOrdered By: Rocio Bartlett on 08-06-2024 Eosinophils/100 WBC (Bld) 4.7 % 0-5 [facility] Eosinophil percentage 4.7 % 0-5 [facility] Erythrocyte distribution wid th (RBC) [Ratio]Ordered By: Rocio Bartlett on 08-06-2024 Erythrocyte distribution width ratio 16.7 % High 11.6-14.6 [facility] Erythrocyte distribution width standard deviation 52.3 fl High 35.1-43.9 [facility] Erythrocyte distribution wid th ratioOrdered By: Rocio Bartlett on 08-06-2024 Erythrocyte distribution width (RBC) [Ratio] 16.7 % High 11.6-14.6 [facility] Erythrocyte distribution wid th standard deviationOrdered By: Rocio Bartlett on 08-06-2024 Erythrocyte distribution width (RBC) [Ratio] 52.3 fl High 35.1-43.9 [facility] GFR/1.73 sq M.predicted art g non-blacks MDRD (S/P/Bld) [Vol rate/Area]Ordered By: Rocio Bartlett on 08-06-2024 Glomerular filtration rate (GFR) estimation/1.73 sq m using serum, plasma, or whole b 112 >60 [facility] Glomerular filtration rate ( GFR) estimation/1.73 sq m using serum, plasma, or whole bOrdered By: Rocio Bartlett on 08-06-2024 GFR/1.73 sq M.predicted among non-blacks MDRD (S/P/Bld) [Vol rate/Area] 112 mL/min/{1.73_m2} >60 [facility] Glucose [Mass/Vol]Ordered By : Rocio Bartlett on 08-06-2024 Serum glucose measurement (mass/volume) 299 mg/dL High 70-99 [facility] Hematocrit Auto (Bld) [Volum e fraction]Ordered By: Rocio Bartlett on 08-06-2024 Hematocrit (Bld) [Volume fraction] 34.5 % Low 40-54 [facility] Automated blood hematocrit (percentage) 34.5 % Low 40-54 [facility] Hemoglobin measurementOrdere d By: Rocio Bartlett on 08-06-2024 Hemoglobin (Bld) [Mass/Vol] 9.9 g/dL Low 13.0-16.5 [facility] Hemoglobin measurement 9.9 g/dL Low 13.0-16.5 [facility] Immature granulocytes/100 WB C Auto (Bld)Ordered By: Rocio Bartlett on 08-06-2024 Immature granulocytes/100 WBC (Bld) 0.600 % 0.0-0.9 [facility] Automated immature granulocyte percentage 0.600 % 0.0-0.9 [facility] Lymphocytes Auto (Unsp spec) [#/Vol]Ordered By: Rocio Bartlett on 08-06-2024 Absolute lymphocyte count 2.89 X10^3/uL 0.83-4.51 [facility] Lymphocytes/100 WBC Auto (Un sp spec)Ordered By: Rocio Bartlett on 08-06-2024 Automated lymphocyte count as percentage of total leukocytes 35.6 % 19-41 [facility] MCV (RBC) [Entitic vol]Order ed By: Rocio Bartlett on 08-06-2024 MCV (mean corpuscular volume) determination 85.6 fL 80-94 [facility] MCV (mean corpuscular volume ) determinationOrdered By: Rocio Bartlett on 08-06-2024 MCV (RBC) [Entitic vol] 85.6 fL 80-94 [facility] Mean corpuscular hemoglobin (MCH) determinationOrdered By: Rocio Bartlett on 08-06-2024 MCH (RBC) [Entitic mass] 24.6 pg Low 27.0-32.0 [facility] Mean corpuscular hemoglobin (MCH) determination 24.6 pg Low 27.0-32.0 [facility] Mean corpuscular hemoglobin concentration (MCHC) determinationOrdered By: Rocio Bartlett on 08-06-2024 Mean corpuscular hemoglobin concentration (MCHC) determination 28.7 g/dL Low 32-36 [facility] Mean platelet volume determi nationOrdered By: Rocio Bartlett on 08-06-2024 Mean platelet volume determination 9.6 fl 6.2-12.0 [facility] Monocyte percentageOrdered B y: Rocio Bartlett on 08-06-2024 Monocytes/100 WBC (Bld) 9.6 % 0-10 [facility] Monocyte percentage 9.6 % 0-10 [facility] Neutrophil percentageOrdered By: Rocio Bartlett on 08-06-2024 Neutrophils/100 WBC (Bld) 48.8 % 47-70 [facility] Neutrophil percentage 48.8 % 47-70 [facility] Nucleated red blood cell per centageOrdered By: Rocio Bartlett on 08-06-2024 Nucleated red blood cell percentage 0 % 0-5 [facility] Platelet countOrdered By: Coretta Bartlett on 08-06-2024 Platelets (Bld) [#/Vol] 315 10*3/uL 150-450 [facility] Platelet count 315 K/mm3 150-450 [facility] Potassium (Unsp spec) [Mass/ Vol]Ordered By: Rocio Bartlett on 08-06-2024 Potassium measurement (mass/volume) 4.3 mmol/L 3.3-5.1 [facility] Potassium measurement (mass/ volume)Ordered By: Rocio Bartlett on 08-06-2024 Potassium (Unsp spec) [Mass/Vol] 4.3 mmol/L 3.3-5.1 [facility] RBC Auto (Bld) [#/Vol]Ordere d By: Rocio Bartlett on 08-06-2024 RBC (Bld) [#/Vol] 4.03 10*6/uL Low 4.6-6.2 [facility] Automated blood erythrocyte count 4.03 M/mm3 Low 4.6-6.2 [facility] Serum creatinine measurement (mass/volume)Ordered By: Rocio Bartlett on 08-06-2024 Creatinine [Mass/Vol] 0.60 mg/dL Low 0.70-1.20 [facility] Serum glucose measurement (m ass/volume)Ordered By: Rocio Bartlett on 08-06-2024 Glucose [Mass/Vol] 299 mg/dL High 70-99 [facility] Serum or plasma calcium sarah urement (mass/volume)Ordered By: Rocio Bartlett on 08-06-2024 Calcium [Mass/Vol] 8.9 mg/dL 7.6-11.0 [facility] Serum or plasma urea nitroge n measurement (mass/volume)Ordered By: Rocio Bartlett on 08-06-2024 Urea nitrogen [Mass/Vol] 15 mg/dL 4-19 [facility] Sodium levelOrdered By: Mirtha Bartlett on 08-06-2024 Sodium [Moles/Vol] 136 mmol/L 133-145 [facility] Sodium level 136 mmol/L 133-145 [facility] Urea nitrogen [Mass/Vol]Orde red By: Rocio Bartlett on 08-06-2024 Serum or plasma urea nitrogen measurement (mass/volume) 15 mg/dL 4-19 [facility] White blood cell (WBC) count Ordered By: Rocio Bartlett on 08-06-2024 WBC (Bld) [#/Vol] 8.1 10*3/uL 4.4-11.0 [facility] White blood cell (WBC) count 8.1 K/mm3 4.4-11.0 [facility] Absolute lymphocyte countOrd ered By: Rocio Bartlett on 07-30-2024 Lymphocytes Auto (Unsp spec) [#/Vol] 3.01 10*3/uL 0.83-4.51 [facility] Absolute neutrophil countOrd ered By: Rocio Bartlett on 07-30-2024 Absolute neutrophil count 4.8 X10^3/uL 2.0-7.7 [facility] Anion gap [Moles/Vol]Ordered By: Rocio Bartlett on 07-30-2024 Anion gap in Serum or Plasma 11 5-15 [facility] Anion gap in Serum or Plasma Ordered By: Rocio Bartlett on 07-30-2024 Anion gap [Moles/Vol] 11 mmol/L 5- [facility] Automated lymphocyte count a s percentage of total leukocytesOrdered By: Rocio Bartlett on 07-30-2024 Lymphocytes/100 WBC Auto (Unsp spec) 33.1 % 19-41 [facility] BUN/creatinine ratioOrdered By: Rocio Bartlett on 07-30-2024 Urea nitrogen/Creatinine [Mass ratio] 21.6 mg/mg High 10-20 [facility] BUN/creatinine ratio 21.6 RATIO High 10-20 [facility] Basophil percentageOrdered B y: Rocio Bartlett on 07-30-2024 Basophils/100 WBC (Bld) 0.5 % 0-1 [facility] Basophil percentage 0.5 % 0-1 [facility] Calcium [Mass/Vol]Ordered By : Rocio Bartlett on 07-30-2024 Serum or plasma calcium measurement (mass/volume) 8.9 mg/dL 7.6-11.0 [facility] Carbon dioxide, total [Moles /volume] in Central venous bloodOrdered By: Rocio Bartlett on 07-30-2024 CO2 [Moles/Vol] 27.0 mmol/L 21.0-32.0 [facility] Carbon dioxide, total [Moles/volume] in Central venous blood 27.0 mmol/L 21.0-32.0 [facility] Chloride assayOrdered By: Coretta Bartlett on 07-30-2024 Chloride [Moles/Vol] 96 mmol/L Low 98-108 [facility] Chloride assay 96 mmol/L Low 98-108 [facility] Creatinine [Mass/Vol]Ordered By: Rocio Bartlett on 07-30-2024 Serum creatinine measurement (mass/volume) 0.74 mg/dL 0.70-1.20 [facility] Eosinophil percentageOrdered By: Rocio Bartlett on 07-30-2024 Eosinophils/100 WBC (Bld) 4.0 % 0-5 [facility] Eosinophil percentage 4.0 % 0-5 [facility] Erythrocyte distribution wid th (RBC) [Ratio]Ordered By: Rocio Bartlett on 07-30-2024 Erythrocyte distribution width ratio 17.0 % High 11.6-14.6 [facility] Erythrocyte distribution width standard deviation 52.1 fl High 35.1-43.9 [facility] Erythrocyte distribution wid th ratioOrdered By: Rocio Bartlett on 07-30-2024 Erythrocyte distribution width (RBC) [Ratio] 17.0 % High 11.6-14.6 [facility] Erythrocyte distribution wid th standard deviationOrdered By: Rocio Bartlett on 07-30-2024 Erythrocyte distribution width (RBC) [Ratio] 52.1 fl High 35.1-43.9 [facility] GFR/1.73 sq M.predicted art g non-blacks MDRD (S/P/Bld) [Vol rate/Area]Ordered By: Rocio Bartlett on 07-30-2024 Glomerular filtration rate (GFR) estimation/1.73 sq m using serum, plasma, or whole b 106 >60 [facility] Glomerular filtration rate ( GFR) estimation/1.73 sq m using serum, plasma, or whole bOrdered By: Rocio Bartlett on 07-30-2024 GFR/1.73 sq M.predicted among non-blacks MDRD (S/P/Bld) [Vol rate/Area] 106 mL/min/{1.73_m2} >60 [facility] Glucose [Mass/Vol]Ordered By : Rocio Bartlett on 07-30-2024 Serum glucose measurement (mass/volume) 314 mg/dL High 70-99 [facility] Hematocrit Auto (Bld) [Volum e fraction]Ordered By: Rocio Bartlett on 07-30-2024 Hematocrit (Bld) [Volume fraction] 32.3 % Low 40-54 [facility] Automated blood hematocrit (percentage) 32.3 % Low 40-54 [facility] Hemoglobin measurementOrdere d By: Rocio Bartlett on 07-30-2024 Hemoglobin (Bld) [Mass/Vol] 9.6 g/dL Low 13.0-16.5 [facility] Hemoglobin measurement 9.6 g/dL Low 13.0-16.5 [facility] Immature granulocytes/100 WB C Auto (Bld)Ordered By: Rocio Bartlett on 07-30-2024 Immature granulocytes/100 WBC (Bld) 0.300 % 0.0-0.9 [facility] Automated immature granulocyte percentage 0.300 % 0.0-0.9 [facility] Lymphocytes Auto (Unsp spec) [#/Vol]Ordered By: Rocio Bartlett on 07-30-2024 Absolute lymphocyte count 3.01 X10^3/uL 0.83-4.51 [facility] Lymphocytes/100 WBC Auto (Un sp spec)Ordered By: Rocio Bartlett on 07-30-2024 Automated lymphocyte count as percentage of total leukocytes 33.1 % 19-41 [facility] MCV (RBC) [Entitic vol]Order ed By: Rocio Bartlett on 07-30-2024 MCV (mean corpuscular volume) determination 84.1 fL 80-94 [facility] MCV (mean corpuscular volume ) determinationOrdered By: Rocio Bartlett on 07-30-2024 MCV (RBC) [Entitic vol] 84.1 fL 80-94 [facility] Mean corpuscular hemoglobin (MCH) determinationOrdered By: Rocio Bartlett on 07-30-2024 MCH (RBC) [Entitic mass] 25.0 pg Low 27.0-32.0 [facility] Mean corpuscular hemoglobin (MCH) determination 25.0 pg Low 27.0-32.0 [facility] Mean corpuscular hemoglobin concentration (MCHC) determinationOrdered By: Rocio Bartlett on 07-30-2024 Mean corpuscular hemoglobin concentration (MCHC) determination 29.7 g/dL Low 32-36 [facility] Mean platelet volume determi nationOrdered By: Rocio Bartlett on 07-30-2024 Mean platelet volume determination 9.7 fl 6.2-12.0 [facility] Monocyte percentageOrdered B y: Rocio Bartlett on 07-30-2024 Monocytes/100 WBC (Bld) 9.1 % 0-10 [facility] Monocyte percentage 9.1 % 0-10 [facility] Neutrophil percentageOrdered By: Rocio Bartlett on 07-30-2024 Neutrophils/100 WBC (Bld) 53.0 % 47-70 [facility] Neutrophil percentage 53.0 % 47-70 [facility] Nucleated red blood cell per centageOrdered By: Rocio Bartlett on 07-30-2024 Nucleated red blood cell percentage 0 % 0-5 [facility] Platelet countOrdered By: Coretta Bartlett on 07-30-2024 Platelets (Bld) [#/Vol] 302 10*3/uL 150-450 [facility] Platelet count 302 K/mm3 150-450 [facility] Potassium (Unsp spec) [Mass/ Vol]Ordered By: Rocio Bartlett on 07-30-2024 Potassium measurement (mass/volume) 4.3 mmol/L 3.3-5.1 [facility] Potassium measurement (mass/ volume)Ordered By: Rocio Bartlett on 07-30-2024 Potassium (Unsp spec) [Mass/Vol] 4.3 mmol/L 3.3-5.1 [facility] RBC Auto (Bld) [#/Vol]Ordere d By: Mirthaamorfernanda Reardonsmithmyranda on 07-30-2024 RBC (Bld) [#/Vol] 3.84 10*6/uL Low 4.6-6.2 [facility] Automated blood erythrocyte count 3.84 M/mm3 Low 4.6-6.2 [facility] Serum creatinine measurement (mass/volume)Ordered By: Rocio Bartlett on 07-30-2024 Creatinine [Mass/Vol] 0.74 mg/dL 0.70-1.20 [facility] Serum glucose measurement (m ass/volume)Ordered By: Rocio Bartlett on 07-30-2024 Glucose [Mass/Vol] 314 mg/dL High 70-99 [facility] Serum or plasma calcium sarah urement (mass/volume)Ordered By: Rocio Bartlett on 07-30-2024 Calcium [Mass/Vol] 8.9 mg/dL 7.6-11.0 [facility] Serum or plasma urea nitroge n measurement (mass/volume)Ordered By: Rocio Bartlett on 07-30-2024 Urea nitrogen [Mass/Vol] 16 mg/dL 4- [facility] Sodium levelOrdered By: Mirtha covarrubiasliz Dhruv on 07-30-2024 Sodium [Moles/Vol] 134 mmol/L 133-145 [facility] Sodium level 134 mmol/L 133-145 [facility] Urea nitrogen [Mass/Vol]Orde red By: Rocio Bartlett on 07-30-2024 Serum or plasma urea nitrogen measurement (mass/volume) 16 mg/dL 4- [facility] White blood cell (WBC) count Ordered By: Rocio Bartlett on 07-30-2024 WBC (Bld) [#/Vol] 9.1 10*3/uL 4.4-11.0 [facility] White blood cell (WBC) count 9.1 K/mm3 4.4-11.0 [facility] 36on 07-27-2024 36 Juan Ramon BALBUENA 06/28/24 8:31 AM Note ----- Message from Lenard Ling MD sent at 05/30/2024 11:26 AM EST ----- Juan Ramon, This patient needs,Reconstruction of a sacral decubitus ulcer with gluteal artery myocutaneous flap versus 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 He is also overweight. Please encourage him to lose as much weight as possible. Schedule him at [facility]. Anticipate inpatient stay of 14 days. It might be a bilateral procedure. Thank you. Lenard Ling MD [facility] Absolute lymphocyte countOrd ered By: Jacquelinefernanda Reardonsmithmyranda on 07-26-2024 Lymphocytes Auto (Unsp spec) [#/Vol] 2.65 10*3/uL 0.83-4.51 [facility] Absolute neutrophil countOrd ered By: [facility] on 07-26-2024 Absolute neutrophil count 5.8 X10^3/uL 2.0-7.7 [facility] Automated lymphocyte count a s percentage of total leukocytesOrdered By: fannyrobstownfernanda Reardonmyranda on 07-26-2024 Lymphocytes/100 WBC Auto (Unsp spec) 27.6 % 19-41 [facility] Basophil percentageOrdered B y: [facility] Reardone on 07-26-2024 Basophils/100 WBC (Bld) 0.6 % 0-1 [facility] Basophil percentage 0.6 % 0-1 [facility] Eosinophil percentageOrdered By: [facility] Reardonmyranda on 07-26-2024 Eosinophils/100 WBC (Bld) 3.4 % 0-5 [facility] Eosinophil percentage 3.4 % 0-5 [facility] Erythrocyte distribution wid th (RBC) [Ratio]Ordered By: fannyrobstownfernanda Bartlett on 07-26-2024 Erythrocyte distribution width ratio 17.2 % High 11.6-14.6 [facility] Erythrocyte distribution width standard deviation 53.5 fl High 35.1-43.9 [facility] Erythrocyte distribution wid th ratioOrdered By: [facility] Corneliuse on 07-26-2024 Erythrocyte distribution width (RBC) [Ratio] 17.2 % High 11.6-14.6 [facility] Erythrocyte distribution wid th standard deviationOrdered By: [facility] Corneliusmyranda on 07-26-2024 Erythrocyte distribution width (RBC) [Ratio] 53.5 fl High 35.1-43.9 [facility] Hematocrit Auto (Bld) [Volum e fraction]Ordered By: Rocio Bartlett on 07-26-2024 Hematocrit (Bld) [Volume fraction] 34.2 % Low 40-54 [facility] Automated blood hematocrit (percentage) 34.2 % Low 40-54 [facility] Hemoglobin measurementOrdere d By: Rocio Bartlett on 07-26-2024 Hemoglobin (Bld) [Mass/Vol] 9.9 g/dL Low 13.0-16.5 [facility] Hemoglobin measurement 9.9 g/dL Low 13.0-16.5 [facility] Immature granulocytes/100 WB C Auto (Bld)Ordered By: Rocio Bartlett on 07-26-2024 Immature granulocytes/100 WBC (Bld) 0.300 % 0.0-0.9 [facility] Automated immature granulocyte percentage 0.300 % 0.0-0.9 [facility] Lymphocytes Auto (Unsp spec) [#/Vol]Ordered By: Rocio Bartlett on 07-26-2024 Absolute lymphocyte count 2.65 X10^3/uL 0.83-4.51 [facility] Lymphocytes/100 WBC Auto (Un sp spec)Ordered By: Rocio Bartlett on 07-26-2024 Automated lymphocyte count as percentage of total leukocytes 27.6 % 19-41 [facility] MCV (RBC) [Entitic vol]Order ed By: Rocio Bartlett on 07-26-2024 MCV (mean corpuscular volume) determination 85.3 fL 80-94 [facility] MCV (mean corpuscular volume ) determinationOrdered By: Rocio Bartlett on 07-26-2024 MCV (RBC) [Entitic vol] 85.3 fL 80-94 [facility] Mean corpuscular hemoglobin (MCH) determinationOrdered By: Rocio Bartlett on 07-26-2024 MCH (RBC) [Entitic mass] 24.7 pg Low 27.0-32.0 [facility] Mean corpuscular hemoglobin (MCH) determination 24.7 pg Low 27.0-32.0 [facility] Mean corpuscular hemoglobin concentration (MCHC) determinationOrdered By: Rocio Bartlett on 07-26-2024 Mean corpuscular hemoglobin concentration (MCHC) determination 28.9 g/dL Low 32-36 [facility] Mean platelet volume determi nationOrdered By: Rocio Bartlett on 07-26-2024 Mean platelet volume determination 9.4 fl 6.2-12.0 [facility] Monocyte percentageOrdered B y: Rocio Bartlett on 07-26-2024 Monocytes/100 WBC (Bld) 7.6 % 0-10 [facility] Monocyte percentage 7.6 % 0-10 [facility] Neutrophil percentageOrdered By: Rocio Bartlett on 07-26-2024 Neutrophils/100 WBC (Bld) 60.5 % 47-70 [facility] Neutrophil percentage 60.5 % 47-70 [facility] Nucleated red blood cell per centageOrdered By: Rocio Bartlett on 07-26-2024 Nucleated red blood cell percentage 0 % 0-5 [facility] Platelet countOrdered By: Coretta Bartlett on 07-26-2024 Platelets (Bld) [#/Vol] 314 10*3/uL 150-450 [facility] Platelet count 314 K/mm3 150-450 [facility] RBC Auto (Bld) [#/Vol]Ordere d By: Rocio Bartlett on 07-26-2024 RBC (Bld) [#/Vol] 4.01 10*6/uL Low 4.6-6.2 [facility] Automated blood erythrocyte count 4.01 M/mm3 Low 4.6-6.2 [facility] White blood cell (WBC) count Ordered By: Rocio Bartlett on 07-26-2024 WBC (Bld) [#/Vol] 9.6 10*3/uL 4.4-11.0 [facility] White blood cell (WBC) count 9.6 K/mm3 4.4-11.0 [facility] ALP [Catalytic activity/Vol] Ordered By: Rocio Bartlett on 07-23-2024 Serum or plasma alkaline phosphatase measurement 67 U/L 40-129 [facility] ALT [Catalytic activity/Vol] Ordered By: Rocio Bartlett on 07-23-2024 Serum or plasma alanine aminotransferase (ALT) measurement 10 U/L <47 [facility] Absolute lymphocyte countOrd ered By: Rocio Bartlett on 07-23-2024 Lymphocytes Auto (Unsp spec) [#/Vol] 2.63 10*3/uL 0.83-4.51 [facility] Absolute neutrophil countOrd ered By: Rocio Bartlett on 07-23-2024 Absolute neutrophil count 5.6 X10^3/uL 2.0-7.7 [facility] Anion gap [Moles/Vol]Ordered By: Rocio Bartlett on 07-23-2024 Anion gap in Serum or Plasma 15 5-15 [facility] Anion gap in Serum or Plasma Ordered By: Rocio Bartlett on 07-23-2024 Anion gap [Moles/Vol] 15 mmol/L 5-15 [facility] Automated lymphocyte count a s percentage of total leukocytesOrdered By: Rocio Bartlett on 07-23-2024 Lymphocytes/100 WBC Auto (Unsp spec) 28.0 % 19-41 [facility] BUN/creatinine ratioOrdered By: Rocio Bartlett on 07-23-2024 Urea nitrogen/Creatinine [Mass ratio] 20.2 mg/mg High 10-20 [facility] BUN/creatinine ratio 20.2 RATIO High 10-20 [facility] Basophil percentageOrdered B y: Rocio Bartlett on 07-23-2024 Basophils/100 WBC (Bld) 0.6 % 0-1 [facility] Basophil percentage 0.6 % 0-1 [facility] Bilirubin directOrdered By: Rocio Bartlett on 07-23-2024 Bilirubin.direct [Mass/Vol] 0.09 mg/dL 0.00-0.30 [facility] Bilirubin, totalOrdered By: Rocio Bartlett on 07-23-2024 Bilirubin [Mass/Vol] 0.17 mg/dL 0.00-1.30 [facility] Bilirubin, total 0.17 mg/dL 0.00-1.30 [facility] Bilirubin.direct [Mass/Vol]O rdered By: Rocio Bartlett on 07-23-2024 Bilirubin direct 0.09 mg/dL 0.00-0.30 [facility] Calcium [Mass/Vol]Ordered By : Rocio Bartlett on 07-23-2024 Serum or plasma calcium measurement (mass/volume) 8.8 mg/dL 7.6-11.0 [facility] Carbon dioxide, total [Moles /volume] in Central venous bloodOrdered By: Rocio Bartlett on 07-23-2024 CO2 [Moles/Vol] 24.9 mmol/L 21.0-32.0 [facility] Carbon dioxide, total [Moles/volume] in Central venous blood 24.9 mmol/L 21.0-32.0 [facility] Chloride assayOrdered By: Coretta Bartlett on 07-23-2024 Chloride [Moles/Vol] 98 mmol/L 98-108 [facility] Chloride assay 98 mmol/L 98-108 [facility] Creatinine [Mass/Vol]Ordered By: Rocio Bartlett on 07-23-2024 Serum creatinine measurement (mass/volume) 0.62 mg/dL Low 0.70-1.20 [facility] Eosinophil percentageOrdered By: Rocio Bartlett on 07-23-2024 Eosinophils/100 WBC (Bld) 3.8 % 0-5 [facility] Eosinophil percentage 3.8 % 0-5 [facility] Erythrocyte distribution wid th (RBC) [Ratio]Ordered By: Rocio Bartlett on 07-23-2024 Erythrocyte distribution width ratio 17.3 % High 11.6-14.6 [facility] Erythrocyte distribution width standard deviation 52.6 fl High 35.1-43.9 [facility] Erythrocyte distribution wid th ratioOrdered By: Rocio Bartlett on 07-23-2024 Erythrocyte distribution width (RBC) [Ratio] 17.3 % High 11.6-14.6 [facility] Erythrocyte distribution wid th standard deviationOrdered By: Rocio Bartlett on 07-23-2024 Erythrocyte distribution width (RBC) [Ratio] 52.6 fl High 35.1-43.9 [facility] GFR/1.73 sq M.predicted art g non-blacks MDRD (S/P/Bld) [Vol rate/Area]Ordered By: Rocio Bartlett on 07-23-2024 Glomerular filtration rate (GFR) estimation/1.73 sq m using serum, plasma, or whole b 111 >60 [facility] Glomerular filtration rate ( GFR) estimation/1.73 sq m using serum, plasma, or whole bOrdered By: Rocio Bartlett on 07-23-2024 GFR/1.73 sq M.predicted among non-blacks MDRD (S/P/Bld) [Vol rate/Area] 111 mL/min/{1.73_m2} >60 [facility] Glucose [Mass/Vol]Ordered By : Rocio Bartlett on 07-23-2024 Serum glucose measurement (mass/volume) 254 mg/dL High 70-99 [facility] HbA1c (Bld) [Mass fraction]O rdered By: Rocio Bartlett on 07-23-2024 Hemoglobin A1c percentage 7.9 % >5.7 [facility] Hematocrit Auto (Bld) [Volum e fraction]Ordered By: Rocio Bartlett on 07-23-2024 Hematocrit (Bld) [Volume fraction] 32.2 % Low 40-54 [facility] Automated blood hematocrit (percentage) 32.2 % Low 40-54 [facility] Hemoglobin A1c percentageOrd ered By: Rocio Bartlett on 07-23-2024 HbA1c (Bld) [Mass fraction] 7.9 % >5.7 [facility] Hemoglobin measurementOrdere d By: Rocio Bartlett on 07-23-2024 Hemoglobin (Bld) [Mass/Vol] 9.5 g/dL Low 13.0-16.5 [facility] Hemoglobin measurement 9.5 g/dL Low 13.0-16.5 [facility] Immature granulocytes/100 WB C Auto (Bld)Ordered By: Rocio Bartlett on 07-23-2024 Immature granulocytes/100 WBC (Bld) 0.600 % 0.0-0.9 [facility] Automated immature granulocyte percentage 0.600 % 0.0-0.9 [facility] Lymphocytes Auto (Unsp spec) [#/Vol]Ordered By: Rocio Bartlett on 07-23-2024 Absolute lymphocyte count 2.63 X10^3/uL 0.83-4.51 [facility] Lymphocytes/100 WBC Auto (Un sp spec)Ordered By: Rocio Bartlett on 07-23-2024 Automated lymphocyte count as percentage of total leukocytes 28.0 % 19-41 [facility] MCV (RBC) [Entitic vol]Order ed By: Rocio Bartlett on 07-23-2024 MCV (mean corpuscular volume) determination 84.1 fL 80-94 [facility] MCV (mean corpuscular volume ) determinationOrdered By: Rocio Bartlett on 07-23-2024 MCV (RBC) [Entitic vol] 84.1 fL 80-94 [facility] Mean corpuscular hemoglobin (MCH) determinationOrdered By: Rocio Bartlett on 07-23-2024 MCH (RBC) [Entitic mass] 24.8 pg Low 27.0-32.0 [facility] Mean corpuscular hemoglobin (MCH) determination 24.8 pg Low 27.0-32.0 [facility] Mean corpuscular hemoglobin concentration (MCHC) determinationOrdered By: Rocio Bartlett on 07-23-2024 Mean corpuscular hemoglobin concentration (MCHC) determination 29.5 g/dL Low 32-36 [facility] Mean platelet volume determi nationOrdered By: Rocio Bartlett on 07-23-2024 Mean platelet volume determination 9.5 fl 6.2-12.0 [facility] Monocyte percentageOrdered B y: Rocio Bartlett on 07-23-2024 Monocytes/100 WBC (Bld) 6.7 % 0-10 [facility] Monocyte percentage 6.7 % 0-10 [facility] Neutrophil percentageOrdered By: Rocio Bartlett on 07-23-2024 Neutrophils/100 WBC (Bld) 60.3 % 47-70 [facility] Neutrophil percentage 60.3 % 47-70 [facility] No Panel InformationOrdered By: Rocio Bartlett on 07-23-2024 15 U/L <38 [facility] Nucleated red blood cell per centageOrdered By: Rocio Bartlett on 07-23-2024 Nucleated red blood cell percentage 0 % 0-5 [facility] Platelet countOrdered By: Coretta Bartlett on 07-23-2024 Platelets (Bld) [#/Vol] 315 10*3/uL 150-450 [facility] Platelet count 315 K/mm3 150-450 [facility] Potassium (Unsp spec) [Mass/ Vol]Ordered By: Rocio Bartlett on 07-23-2024 Potassium measurement (mass/volume) 4.3 mmol/L 3.3-5.1 [facility] Potassium measurement (mass/ volume)Ordered By: Rocio Bartlett on 07-23-2024 Potassium (Unsp spec) [Mass/Vol] 4.3 mmol/L 3.3-5.1 [facility] RBC Auto (Bld) [#/Vol]Ordere d By: Rocio Bartlett on 07-23-2024 RBC (Bld) [#/Vol] 3.83 10*6/uL Low 4.6-6.2 [facility] Automated blood erythrocyte count 3.83 M/mm3 Low 4.6-6.2 [facility] Serum creatinine measurement (mass/volume)Ordered By: Rocio Bartlett on 07-23-2024 Creatinine [Mass/Vol] 0.62 mg/dL Low 0.70-1.20 [facility] Serum globulin measurementOr dered By: Rocio Bartlett on 07-23-2024 Globulin (S) [Mass/Vol] 3.5 g/dL 2.2-4.2 [facility] Serum glucose measurement (m ass/volume)Ordered By: Rocio Bartlett on 07-23-2024 Glucose [Mass/Vol] 254 mg/dL High 70-99 [facility] Serum or plasma alanine diego otransferase (ALT) measurementOrdered By: Rocio Bartlett on 07-23-2024 ALT [Catalytic activity/Vol] 10 U/L <47 [facility] Serum or plasma albumin sarah urement (mass/volume)Ordered By: Rocio Bartlett on 07-23-2024 Albumin [Mass/Vol] 3.5 g/dL 3.5-5.0 [facility] Serum or plasma albumin measurement (mass/volume) 3.5 g/dL 2.2-4.2 [facility] Serum or plasma alkaline nate sphatase measurementOrdered By: Rocio Bartlett on 07-23-2024 ALP [Catalytic activity/Vol] 67 U/L 40-129 [facility] Serum or plasma calcium sarah urement (mass/volume)Ordered By: Rocio Bartlett on 07-23-2024 Calcium [Mass/Vol] 8.8 mg/dL 7.6-11.0 [facility] Serum or plasma urea nitroge n measurement (mass/volume)Ordered By: Rocio Bartlett on 07-23-2024 Urea nitrogen [Mass/Vol] 13 mg/dL 4- [facility] Sodium levelOrdered By: Mirtha Bartlett on 07-23-2024 Sodium [Moles/Vol] 137 mmol/L 133-145 [facility] Sodium level 137 mmol/L 133-145 [facility] Total proteinOrdered By: Williams Bartlett on 07-23-2024 Protein [Mass/Vol] 7.0 g/dL 5.9-8.4 [facility] Total protein 7.0 g/dL 5.9-8.4 [facility] Urea nitrogen [Mass/Vol]Orde red By: Rocio Bartlett on 07-23-2024 Serum or plasma urea nitrogen measurement (mass/volume) 13 mg/dL 4- [facility] White blood cell (WBC) count Ordered By: Rocio Bartlett on 07-23-2024 WBC (Bld) [#/Vol] 9.4 10*3/uL 4.4-11.0 [facility] White blood cell (WBC) count 9.4 K/mm3 4.4-11.0 [facility] Surgery Visit Reporton 07-18 Surgery Visit Report Normal [facility] Absolute lymphocyte countOrd ered By: Rocio Bartlett on 07-16-2024 Lymphocytes Auto (Unsp spec) [#/Vol] 2.75 10*3/uL 0.83-4.51 [facility] Absolute neutrophil countOrd ered By: Rocio Bartlett on 07-16-2024 Absolute neutrophil count 5.9 X10^3/uL 2.0-7.7 [facility] Anion gap [Moles/Vol]Ordered By: Rocio Bartlett on 07-16-2024 Serum or plasma anion gap determination (moles/volume) 13 5-15 [facility] Automated lymphocyte count a s percentage of total leukocytesOrdered By: Rocio Bartlett on 07-16-2024 Lymphocytes/100 WBC Auto (Unsp spec) 27.2 % 19-41 [facility] BUN/creatinine ratioOrdered By: Rocio Bartlett on 07-16-2024 Urea nitrogen/Creatinine [Mass ratio] 30.1 mg/mg High 10-20 [facility] BUN/creatinine ratio 30.1 RATIO High 10-20 [facility] Basophil percentageOrdered B y: Rocio Bartlett on 07-16-2024 Basophils/100 WBC (Bld) 0.6 % 0-1 [facility] Basophil percentage 0.6 % 0-1 [facility] Calcium [Mass/Vol]Ordered By : Rocio Bartlett on 07-16-2024 Serum or plasma calcium measurement (mass/volume) 8.6 mg/dL 7.6-11.0 [facility] Carbon dioxide measurementOr dered By: Rocio Bartlett on 07-16-2024 CO2 [Moles/Vol] 26.3 mmol/L 22.0-29.0 [facility] Carbon dioxide measurement 26.3 mmol/L 22.0-29.0 [facility] Chloride measurementOrdered By: Rocio Bartlett on 07-16-2024 Chloride [Moles/Vol] 98 mmol/L 96-108 [facility] Chloride measurement 98 mmol/L 96-108 [facility] Creatinine [Mass/Vol]Ordered By: Rocio Bartlett on 07-16-2024 Serum creatinine measurement (mass/volume) 0.50 mg/dL Low 0.70-1.20 [facility] Eosinophil percentageOrdered By: Rocio Bartlett on 07-16-2024 Eosinophils/100 WBC (Bld) 3.8 % 0-5 [facility] Eosinophil percentage 3.8 % 0-5 [facility] Erythrocyte distribution wid th (RBC) [Ratio]Ordered By: Rocio Bartlett on 07-16-2024 Erythrocyte distribution width ratio 17.5 % High 11.6-14.6 [facility] Erythrocyte distribution width standard deviation 54.0 fl High 35.1-43.9 [facility] Erythrocyte distribution wid th ratioOrdered By: Rocio Bartlett on 07-16-2024 Erythrocyte distribution width (RBC) [Ratio] 17.5 % High 11.6-14.6 [facility] Erythrocyte distribution wid th standard deviationOrdered By: Rocio Bartlett on 07-16-2024 Erythrocyte distribution width (RBC) [Ratio] 54.0 fl High 35.1-43.9 [facility] GFR/1.73 sq M.predicted art g non-blacks MDRD (S/P/Bld) [Vol rate/Area]Ordered By: Rocio Bartlett on 07-16-2024 Glomerular filtration rate (GFR) estimation/1.73 sq m using serum, plasma, or whole b 119 >60 [facility] Glomerular filtration rate ( GFR) estimation/1.73 sq m using serum, plasma, or whole bOrdered By: Rocio Bartlett on 07-16-2024 GFR/1.73 sq M.predicted among non-blacks MDRD (S/P/Bld) [Vol rate/Area] 119 mL/min/{1.73_m2} >60 [facility] Glucose [Mass/Vol]Ordered By : Rocio Bartlett on 07-16-2024 Serum glucose measurement (mass/volume) 206 mg/dL High 70-99 [facility] Hematocrit Auto (Bld) [Volum e fraction]Ordered By: Rocio Bartlett on 07-16-2024 Hematocrit (Bld) [Volume fraction] 31.6 % Low 40-54 [facility] Automated blood hematocrit (percentage) 31.6 % Low 40-54 [facility] Hemoglobin measurementOrdere d By: Rocio Bartlett on 07-16-2024 Hemoglobin (Bld) [Mass/Vol] 9.2 g/dL Low 13.0-16.5 [facility] Hemoglobin measurement 9.2 g/dL Low 13.0-16.5 [facility] Immature granulocytes/100 WB C Auto (Bld)Ordered By: Rocio Bartlett on 07-16-2024 Immature granulocytes/100 WBC (Bld) 1.000 % High 0.0-0.9 [facility] Automated immature granulocyte percentage 1.000 % High 0.0-0.9 [facility] Lymphocytes Auto (Unsp spec) [#/Vol]Ordered By: Rocio Bartlett on 07-16-2024 Absolute lymphocyte count 2.75 X10^3/uL 0.83-4.51 [facility] Lymphocytes/100 WBC Auto (Un sp spec)Ordered By: Rocio Bartlett on 07-16-2024 Automated lymphocyte count as percentage of total leukocytes 27.2 % 19-41 [facility] MCV (RBC) [Entitic vol]Order ed By: Rocio Bartlett on 07-16-2024 MCV (mean corpuscular volume) determination 84.5 fL 80-94 [facility] MCV (mean corpuscular volume ) determinationOrdered By: Rocio Bartlett on 07-16-2024 MCV (RBC) [Entitic vol] 84.5 fL 80-94 [facility] Mean corpuscular hemoglobin (MCH) determinationOrdered By: Rocio Bartlett on 07-16-2024 MCH (RBC) [Entitic mass] 24.6 pg Low 27.0-32.0 [facility] Mean corpuscular hemoglobin (MCH) determination 24.6 pg Low 27.0-32.0 [facility] Mean corpuscular hemoglobin concentration (MCHC) determinationOrdered By: Rocio Bartlett on 07-16-2024 Mean corpuscular hemoglobin concentration (MCHC) determination 29.1 g/dL Low 32-36 [facility] Mean platelet volume determi nationOrdered By: Rocio Bartlett on 07-16-2024 Mean platelet volume determination 9.4 fl 6.2-12.0 [facility] Monocyte percentageOrdered B y: Rocio Bartlett on 07-16-2024 Monocytes/100 WBC (Bld) 9.5 % 0-10 [facility] Monocyte percentage 9.5 % 0-10 [facility] Neutrophil percentageOrdered By: Rocio Bartlett on 07-16-2024 Neutrophils/100 WBC (Bld) 57.9 % 47-70 [facility] Neutrophil percentage 57.9 % 47-70 [facility] Nucleated red blood cell per centageOrdered By: Rocio Bartlett on 07-16-2024 Nucleated red blood cell percentage 0 % 0-5 [facility] Platelet countOrdered By: Coretta Bartlett on 07-16-2024 Platelets (Bld) [#/Vol] 333 10*3/uL 150-450 [facility] Platelet count 333 K/mm3 150-450 [facility] Potassium [Moles/Vol]Ordered By: Rocio Bartlett on 07-16-2024 Serum or plasma potassium measurement 4.3 mmol/L 3.3-5.1 [facility] RBC Auto (Bld) [#/Vol]Ordere d By: Rocio Bartlett on 07-16-2024 RBC (Bld) [#/Vol] 3.74 10*6/uL Low 4.6-6.2 [facility] Automated blood erythrocyte count 3.74 M/mm3 Low 4.6-6.2 [facility] Serum creatinine measurement (mass/volume)Ordered By: Rocio Bartlett on 07-16-2024 Creatinine [Mass/Vol] 0.50 mg/dL Low 0.70-1.20 [facility] Serum glucose measurement (m ass/volume)Ordered By: Rocio Bartlett on 07-16-2024 Glucose [Mass/Vol] 206 mg/dL High 70-99 [facility] Serum or plasma anion gap de termination (moles/volume)Ordered By: Rocio Bartlett on 07-16-2024 Anion gap [Moles/Vol] 13 mmol/L 5-15 [facility] Serum or plasma calcium sarah urement (mass/volume)Ordered By: Rocio Bartlett on 07-16-2024 Calcium [Mass/Vol] 8.6 mg/dL 7.6-11.0 [facility] Serum or plasma potassium me asurementOrdered By: Rocio Bartlett on 07-16-2024 Potassium [Moles/Vol] 4.3 mmol/L 3.3-5.1 [facility] Serum or plasma sodium measu rement (moles/volume)Ordered By: Rocio Bartlett on 07-16-2024 Sodium [Moles/Vol] 137 mmol/L 133-145 [facility] Serum or plasma urea nitroge n measurement (mass/volume)Ordered By: Rocio Bartlett on 07-16-2024 Urea nitrogen [Mass/Vol] 15 mg/dL 09-01 [facility] Sodium [Moles/Vol]Or[facility] 07-[facility] Serum or plasma sodium measurement (moles/volume) 137 mmol/L 133-145 [facility] Urea nitrogen [Mass/Vol]Orde red By: Rocio Bartlett on 07-16-2024 Serum or plasma urea nitrogen measurement (mass/volume) 15 mg/dL - [facility] White blood cell (WBC) count Ordered By: Rocio Bartlett on 07-16-2024 WBC (Bld) [#/Vol] 10.1 10*3/uL 4.4-11.0 [facility] White blood cell (WBC) count 10.1 K/mm3 4.4-11.0 [facility] Urine Legionella pneumophila antigen detectionOrdered By: Rocio Bartlett on 07-11-2024 L. pneumophila Ag Ql (U) [facility] Absolute lymphocyte countOrd ered By: Rocio Bartlett on 07-09-2024 Lymphocytes Auto (Unsp spec) [#/Vol] 2.18 10*3/uL 0.83-4.51 [facility] Absolute neutrophil countOrd ered By: Rocio Bartlett on 07-09-2024 Absolute neutrophil count 5.1 X10^3/uL 2.0-7.7 [facility] Automated lymphocyte count a s percentage of total leukocytesOrdered By: Rocio Bartlett on 02-24-2025 Lymphocytes/100 WBC Auto (Unsp spec) 25.4 % 19-41 [facility] Basophil percentageOrdered B y: Rocio Bartlett on 07-09-2024 Basophils/100 WBC (Bld) 0.7 % 0-1 [facility] Basophil percentage 0.7 % 0-1 [facility] Blood urea nitrogen (BUN)/cr eatinine ratioOrdered By: Rocio Bartlett on 07-09-2024 Blood urea nitrogen (BUN)/creatinine ratio 25.3 RATIO High 10-20 [facility] Calcium [Mass/Vol]Ordered By : Rocio Bartlett on 07-09-2024 Serum or plasma calcium measurement (mass/volume) 9.1 mg/dL 8.5-10.1 [facility] Carbon dioxide measurementOr dered By: Rocio Bartlett on 07-09-2024 CO2 [Moles/Vol] 31.0 mmol/L 21.0-32.0 [facility] Carbon dioxide measurement 31.0 mmol/L 21.0-32.0 [facility] Chloride measurementOrdered By: Rocio Bartlett on 07-09-2024 Chloride [Moles/Vol] 98 mmol/L 98-107 [facility] Chloride measurement 98 mmol/L 98-107 [facility] Creatinine [Mass/Vol]Ordered By: Rocio Bartlett on 07-09-2024 Serum or plasma creatinine measurement (mass/volume) 0.67 mg/dL Low 0.70-1.30 [facility] Eosinophil percentageOrdered By: Rocio Bartlett on 07-09-2024 Eosinophils/100 WBC (Bld) 2.9 % 0-5 [facility] Eosinophil percentage 2.9 % 0-5 [facility] Erythrocyte distribution wid th (RBC) [Ratio]Ordered By: Rocio Bartlett on 07-09-2024 Erythrocyte distribution width ratio 18.0 % High 11.6-14.6 [facility] Erythrocyte distribution width standard deviation 55.9 fl High 35.1-43.9 [facility] Erythrocyte distribution wid th ratioOrdered By: Rocio Bartlett on 07-09-2024 Erythrocyte distribution width (RBC) [Ratio] 18.0 % High 11.6-14.6 [facility] Erythrocyte distribution wid th standard deviationOrdered By: Rocio Bartlett on 07-09-2024 Erythrocyte distribution width (RBC) [Ratio] 55.9 fl High 35.1-43.9 [facility] Estimated glomerular filtrat ion rate (GFR) AmericanOrdered By: Rocio Bartlett on 07-09-2024 Estimated glomerular filtration rate (GFR) 157 mL/min >60 [facility] Glomerular filtration rate ( GFR) estimationOrdered By: Rocio Bartlett on 07-09-2024 GFR/1.73 sq M.predicted among non-blacks MDRD (S/P/Bld) [Vol rate/Area] 130 mL/min/{1.73_m2} >60 [facility] Glomerular filtration rate (GFR) estimation 130 mL/min >60 [facility] Glucose measurementOrdered B y: Rocio Bartlett on 07-09-2024 Glucose [Mass/Vol] 311 mg/dL High 74-106 [facility] Glucose measurement 311 mg/dL High 74-106 [facility] Hematocrit Auto (Bld) [Volum e fraction]Ordered By: Rocio Bartlett on 07-09-2024 Hematocrit (Bld) [Volume fraction] 35.0 % Low 40-54 [facility] Automated blood hematocrit (percentage) 35.0 % Low 40-54 [facility] Hemoglobin measurementOrdere d By: Rocio Bartlett on 07-09-2024 Hemoglobin (Bld) [Mass/Vol] 10.2 g/dL Low 13.0-16.5 [facility] Hemoglobin measurement 10.2 g/dL Low 13.0-16.5 [facility] Immature granulocytes/100 WB C Auto (Bld)Ordered By: Rocio Bartlett on 07-09-2024 Immature granulocytes/100 WBC (Bld) 1.100 % High 0.0-0.9 [facility] Automated immature granulocyte percentage 1.100 % High 0.0-0.9 [facility] Lymphocytes Auto (Unsp spec) [#/Vol]Ordered By: Rocio Bartlett on 07-09-2024 Absolute lymphocyte count 2.18 X10^3/uL 0.83-4.51 [facility] Lymphocytes/100 WBC Auto (Un sp spec)Ordered By: Rocio Bartlett on 07-09-2024 Automated lymphocyte count as percentage of total leukocytes 25.4 % 19-41 [facility] MCV (RBC) [Entitic vol]Order ed By: Rocio Bartlett on 07-09-2024 MCV (mean corpuscular volume) determination 85.2 fL 80-94 [facility] MCV (mean corpuscular volume ) determinationOrdered By: Rocio Bartlett on 07-09-2024 MCV (RBC) [Entitic vol] 85.2 fL 80-94 [facility] Mean corpuscular hemoglobin (MCH) determinationOrdered By: Rocio Bartlett on 07-09-2024 MCH (RBC) [Entitic mass] 24.8 pg Low 27.0-32.0 [facility] Mean corpuscular hemoglobin (MCH) determination 24.8 pg Low 27.0-32.0 [facility] Mean corpuscular hemoglobin concentration (MCHC) determinationOrdered By: Rocio Bartlett on 07-09-2024 Mean corpuscular hemoglobin concentration (MCHC) determination 29.1 g/dL Low 32-36 [facility] Mean platelet volume determi nationOrdered By: Rocio Bartlett on 07-09-2024 Mean platelet volume determination 9.6 fl 6.2-12.0 [facility] Monocyte percentageOrdered B y: Rocio Bartlett on 07-09-2024 Monocytes/100 WBC (Bld) 10.3 % High 0-10 [facility] Monocyte percentage 10.3 % High 0-10 [facility] Neutrophil percentageOrdered By: Rocio Bartlett on 07-09-2024 Neutrophils/100 WBC (Bld) 59.6 % 47-70 [facility] Neutrophil percentage 59.6 % 47-70 [facility] Nucleated red blood cell per centageOrdered By: Rocio Bartlett on 07-09-2024 Nucleated red blood cell percentage 0 % 0-5 [facility] Platelet countOrdered By: Coretta Bartlett on 07-09-2024 Platelets (Bld) [#/Vol] 293 10*3/uL 150-450 [facility] Platelet count 293 K/mm3 150-450 [facility] Potassium measurementOrdered By: Rocio Bartlett on 07-09-2024 Potassium [Moles/Vol] 3.9 mmol/L 3.5-5.1 [facility] Potassium measurement 3.9 mmol/L 3.5-5.1 [facility] RBC Auto (Bld) [#/Vol]Ordere d By: Rocio Bartlett on 07-09-2024 RBC (Bld) [#/Vol] 4.11 10*6/uL Low 4.6-6.2 [facility] Automated blood erythrocyte count 4.11 M/mm3 Low 4.6-6.2 [facility] Serum anion gap measurementO rdered By: Rocio Bartlett on 07-09-2024 Serum anion gap measurement 6 5-15 [facility] Serum or plasma calcium sarah urement (mass/volume)Ordered By: Rocio Bartlett on 07-09-2024 Calcium [Mass/Vol] 9.1 mg/dL 8.5-10.1 [facility] Serum or plasma creatinine m easurement (mass/volume)Ordered By: Rocio Bartlett on 07-09-2024 Creatinine [Mass/Vol] 0.67 mg/dL Low 0.70-1.30 [facility] Serum or plasma urea nitroge n measurement (mass/volume)Ordered By: Rocio Bartlett on 07-09-2024 Urea nitrogen [Mass/Vol] 17 mg/dL 7-18 [facility] Sodium levelOrdered By: Mirtha Bartlett on 07-09-2024 Sodium [Moles/Vol] 136 mmol/L 136-145 [facility] Sodium level 136 mmol/L 136-145 [facility] Urea nitrogen [Mass/Vol]Orde red By: Rocio Bartlett on 07-09-2024 Serum or plasma urea nitrogen measurement (mass/volume) 17 mg/dL 7-18 [facility] White blood cell (WBC) count Ordered By: Rocio Bartlett on 07-09-2024 WBC (Bld) [#/Vol] 8.6 10*3/uL 4.4-11.0 [facility] White blood cell (WBC) count 8.6 K/mm3 4.4-11.0 [facility] Absolute lymphocyte countOrd ered By: Rocio Bartlett on 07-02-2024 Lymphocytes Auto (Unsp spec) [#/Vol] 2.52 10*3/uL 0.83-4.51 [facility] Absolute neutrophil countOrd ered By: Rocio Bartlett on 07-02-2024 Absolute neutrophil count 4.9 X10^3/uL 2.0-7.7 [facility] Automated lymphocyte count a s percentage of total leukocytesOrdered By: Rocio Bartlett on 07-02-2024 Lymphocytes/100 WBC Auto (Unsp spec) 29.0 % 19-41 [facility] Basophil percentageOrdered B y: Rocio Bartlett on 07-02-2024 Basophils/100 WBC (Bld) 0.5 % 0-1 [facility] Basophil percentage 0.5 % 0-1 [facility] Blood urea nitrogen (BUN)/cr eatinine ratioOrdered By: Rocio Bartlett on 07-02-2024 Blood urea nitrogen (BUN)/creatinine ratio 22.2 RATIO High 10-20 [facility] Calcium [Mass/Vol]Ordered By : Rocio Bartlett on 07-02-2024 Serum or plasma calcium measurement (mass/volume) 9.2 mg/dL 8.5-10.1 [facility] Carbon dioxide measurementOr dered By: Rocio Bartlett on 07-02-2024 CO2 [Moles/Vol] 33.0 mmol/L High 21.0-32.0 [facility] Carbon dioxide measurement 33.0 mmol/L High 21.0-32.0 [facility] Chloride measurementOrdered By: Rcoio Bartlett on 07-02-2024 Chloride [Moles/Vol] 96 mmol/L Low 98-107 [facility] Chloride measurement 96 mmol/L Low 98-107 [facility] Creatinine [Mass/Vol]Ordered By: Rocio Bartlett on 07-02-2024 Serum or plasma creatinine measurement (mass/volume) 0.72 mg/dL 0.70-1.30 [facility] Eosinophil percentageOrdered By: Rocio Bartlett on 07-02-2024 Eosinophils/100 WBC (Bld) 3.0 % 0-5 [facility] Eosinophil percentage 3.0 % 0-5 [facility] Erythrocyte distribution wid th (RBC) [Ratio]Ordered By: Rocio Bartlett on 07-02-2024 Erythrocyte distribution width ratio 18.4 % High 11.6-14.6 [facility] Erythrocyte distribution width standard deviation 56.7 fl High 35.1-43.9 [facility] Erythrocyte distribution wid th ratioOrdered By: Rocio Bartlett on 07-02-2024 Erythrocyte distribution width (RBC) [Ratio] 18.4 % High 11.6-14.6 [facility] Erythrocyte distribution wid th standard deviationOrdered By: Rocio Bartlett on 07-02-2024 Erythrocyte distribution width (RBC) [Ratio] 56.7 fl High 35.1-43.9 [facility] Estimated glomerular filtrat ion rate (GFR) AmericanOrdered By: Rocio Bartlett on 07-02-2024 Estimated glomerular filtration rate (GFR) 145 mL/min >60 [facility] Glomerular filtration rate ( GFR) estimationOrdered By: Rocio Bartlett on 07-02-2024 GFR/1.73 sq M.predicted among non-blacks MDRD (S/P/Bld) [Vol rate/Area] 120 mL/min/{1.73_m2} >60 [facility] Glomerular filtration rate (GFR) estimation 120 mL/min >60 [facility] Glucose measurementOrdered B y: Rocio Bartlett on 07-02-2024 Glucose [Mass/Vol] 254 mg/dL High 74-106 [facility] Glucose measurement 254 mg/dL High 74-106 [facility] Hematocrit Auto (Bld) [Volum e fraction]Ordered By: Rocio Bartlett on 07-02-2024 Hematocrit (Bld) [Volume fraction] 35.3 % Low 40-54 [facility] Automated blood hematocrit (percentage) 35.3 % Low 40-54 [facility] Hemoglobin measurementOrdere d By: Rocio Bartlett on 07-02-2024 Hemoglobin (Bld) [Mass/Vol] 10.4 g/dL Low 13.0-16.5 [facility] Hemoglobin measurement 10.4 g/dL Low 13.0-16.5 [facility] Immature granulocytes/100 WB C Auto (Bld)Ordered By: Rocio Bartlett on 07-02-2024 Immature granulocytes/100 WBC (Bld) 0.800 % 0.0-0.9 [facility] Automated immature granulocyte percentage 0.800 % 0.0-0.9 [facility] Lymphocytes Auto (Unsp spec) [#/Vol]Ordered By: Rocio Bartlett on 07-02-2024 Absolute lymphocyte count 2.52 X10^3/uL 0.83-4.51 [facility] Lymphocytes/100 WBC Auto (Un sp spec)Ordered By: Rocio Bartlett on 07-02-2024 Automated lymphocyte count as percentage of total leukocytes 29.0 % 19-41 [facility] MCV (RBC) [Entitic vol]Order ed By: Rocio Bartlett on 07-02-2024 MCV (mean corpuscular volume) determination 85.1 fL 80-94 [facility] MCV (mean corpuscular volume ) determinationOrdered By: Rocio Bartlett on 07-02-2024 MCV (RBC) [Entitic vol] 85.1 fL 80-94 [facility] Mean corpuscular hemoglobin (MCH) determinationOrdered By: Rocio Bartlett on 07-02-2024 MCH (RBC) [Entitic mass] 25.1 pg Low 27.0-32.0 [facility] Mean corpuscular hemoglobin (MCH) determination 25.1 pg Low 27.0-32.0 [facility] Mean corpuscular hemoglobin concentration (MCHC) determinationOrdered By: Rocio Bartlett on 07-02-2024 Mean corpuscular hemoglobin concentration (MCHC) determination 29.5 g/dL Low 32-36 [facility] Mean platelet volume determi nationOrdered By: Rocio Bartlett on 07-02-2024 Mean platelet volume determination 9.8 fl 6.2-12.0 [facility] Monocyte percentageOrdered B y: Rocio Bartlett on 07-02-2024 Monocytes/100 WBC (Bld) 9.8 % 0-10 [facility] Monocyte percentage 9.8 % 0-10 [facility] Neutrophil percentageOrdered By: Rocio aBrtlett on 07-02-2024 Neutrophils/100 WBC (Bld) 56.9 % 47-70 [facility] Neutrophil percentage 56.9 % 47-70 [facility] Nucleated red blood cell per centageOrdered By: Rocio Bartlett on 07-02-2024 Nucleated red blood cell percentage 0 % 0-5 [facility] Platelet countOrdered By: Coretta Bartlett on 07-02-2024 Platelets (Bld) [#/Vol] 325 10*3/uL 150-450 [facility] Platelet count 325 K/mm3 150-450 [facility] Potassium measurementOrdered By: Rocio Bartlett on 07-02-2024 Potassium [Moles/Vol] 4.0 mmol/L 3.5-5.1 [facility] Potassium measurement 4.0 mmol/L 3.5-5.1 [facility] RBC Auto (Bld) [#/Vol]Ordere d By: Rocio Bartlett on 07-02-2024 RBC (Bld) [#/Vol] 4.15 10*6/uL Low 4.6-6.2 [facility] Automated blood erythrocyte count 4.15 M/mm3 Low 4.6-6.2 [facility] Serum anion gap measurementO rdered By: Rocio Bartlett on 07-02-2024 Serum anion gap measurement 5 5-15 [facility] Serum or plasma calcium sarah urement (mass/volume)Ordered By: Rocio Bartlett on 07-02-2024 Calcium [Mass/Vol] 9.2 mg/dL 8.5-10.1 [facility] Serum or plasma creatinine m easurement (mass/volume)Ordered By: Rocio Bartlett on 07-02-2024 Creatinine [Mass/Vol] 0.72 mg/dL 0.70-1.30 [facility] Serum or plasma urea nitroge n measurement (mass/volume)Ordered By: Jacquelinefernanda Reardonjanie on 07-02-2024 Urea nitrogen [Mass/Vol] 16 mg/dL 11-30 [facility] Sodium levelOrdered By: Mirtha cherry Corneliusjanie on 07-02-2024 Sodium [Moles/Vol] 134 mmol/L Low 136-145 [facility] Sodium level 134 mmol/L Low 136-145 [facility] Urea nitrogen [Mass/Vol]Orde red By: Rocio Bartlett on 07-02-2024 Serum or plasma urea nitrogen measurement (mass/volume) 16 mg/dL 11-30 [facility] White blood cell (WBC) count Ordered By: Rocio Corneliusjanie on 07-02-2024 WBC (Bld) [#/Vol] 8.7 10*3/uL 4.4-11.0 [facility] White blood cell (WBC) count 8.7 K/mm3 4.4-11.0 [facility] 36on 06-28-2024 36 ----- Message from Jessica Ling MD sent at 05/30/2024 11:26 AM EST ----- Juan Ramon, This patient needs,Reconstruction of a sacral decubitus ulcer with gluteal artery myocutaneous flap versus 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 He is also overweight. Please encourage him to lose as much weight as possible. Schedule him at [facility]. Anticipate inpatient stay of 14 days. It might be a bilateral procedure. Thank you. Lenard Ling MD [facility] Absolute lymphocyte countOrd ered By: Corettasylvie Bartlett on 06-25-2024 Lymphocytes Auto (Unsp spec) [#/Vol] 2.26 10*3/uL 0.83-4.51 [facility] Absolute neutrophil countOrd ered By: Jacquelinefernanda Reardonsmithmyranda on 06-25-2024 Absolute neutrophil count 4.0 X10^3/uL 2.0-7.7 [facility] Automated lymphocyte count a s percentage of total leukocytesOrdered By: Corettasylvie Bartlett on 06-25-2024 Lymphocytes/100 WBC Auto (Unsp spec) 31.2 % 19-41 [facility] Basophil percentageOrdered B y: Rocio Bartlett on 06-25-2024 Basophils/100 WBC (Bld) 0.7 % 0-1 [facility] Basophil percentage 0.7 % 0-1 [facility] Blood urea nitrogen (BUN)/cr eatinine ratioOrdered By: Rocio Bartlett on 06-25-2024 Blood urea nitrogen (BUN)/creatinine ratio 18.5 RATIO 10-20 [facility] Calcium [Mass/Vol]Ordered By : Rocio Bartlett on 06-25-2024 Serum or plasma calcium measurement (mass/volume) 8.8 mg/dL 8.5-10.1 [facility] Carbon dioxide measurementOr dered By: Rocio Bartlett on 06-25-2024 CO2 [Moles/Vol] 30.0 mmol/L 21.0-32.0 [facility] Carbon dioxide measurement 30.0 mmol/L 21.0-32.0 [facility] Chloride measurementOrdered By: Rocio Bartlett on 06-25-2024 Chloride [Moles/Vol] 98 mmol/L 98-107 [facility] Chloride measurement 98 mmol/L 98-107 [facility] Creatinine [Mass/Vol]Ordered By: Rocio Bartlett on 06-25-2024 Serum or plasma creatinine measurement (mass/volume) 0.70 mg/dL 0.70-1.30 [facility] Eosinophil percentageOrdered By: Rocio Bartlett on 06-25-2024 Eosinophils/100 WBC (Bld) 3.3 % 0-5 [facility] Eosinophil percentage 3.3 % 0-5 [facility] Erythrocyte distribution wid th (RBC) [Ratio]Ordered By: Rocio Bartlett on 06-25-2024 Erythrocyte distribution width ratio 18.9 % High 11.6-14.6 [facility] Erythrocyte distribution width standard deviation 57.5 fl High 35.1-43.9 [facility] Erythrocyte distribution wid th ratioOrdered By: Rocio Bartlett on 06-25-2024 Erythrocyte distribution width (RBC) [Ratio] 18.9 % High 11.6-14.6 [facility] Erythrocyte distribution wid th standard deviationOrdered By: Rocio Bartlett on 06-25-2024 Erythrocyte distribution width (RBC) [Ratio] 57.5 fl High 35.1-43.9 [facility] Estimated glomerular filtrat ion rate (GFR) AmericanOrdered By: Rocio Bartlett on 06-25-2024 Estimated glomerular filtration rate (GFR) 149 mL/min >60 [facility] Glomerular filtration rate ( GFR) estimationOrdered By: Rocio Bartlett on 06-25-2024 GFR/1.73 sq M.predicted among non-blacks MDRD (S/P/Bld) [Vol rate/Area] 123 mL/min/{1.73_m2} >60 [facility] Glomerular filtration rate (GFR) estimation 123 mL/min >60 [facility] Glucose measurementOrdered B y: Rocio Bartlett on 06-25-2024 Glucose [Mass/Vol] 276 mg/dL High 74-106 [facility] Glucose measurement 276 mg/dL High 74-106 [facility] Hematocrit Auto (Bld) [Volum e fraction]Ordered By: Rocio Bartlett on 06-25-2024 Hematocrit (Bld) [Volume fraction] 35.0 % Low 40-54 [facility] Automated blood hematocrit (percentage) 35.0 % Low 40-54 [facility] Hemoglobin measurementOrdere d By: Rocio Bartlett on 06-25-2024 Hemoglobin (Bld) [Mass/Vol] 10.1 g/dL Low 13.0-16.5 [facility] Hemoglobin measurement 10.1 g/dL Low 13.0-16.5 [facility] Immature granulocytes/100 WB C Auto (Bld)Ordered By: Rocio Bartlett on 06-25-2024 Immature granulocytes/100 WBC (Bld) 0.600 % 0.0-0.9 [facility] Automated immature granulocyte percentage 0.600 % 0.0-0.9 [facility] Lymphocytes Auto (Unsp spec) [#/Vol]Ordered By: Rocio Bartlett on 06-25-2024 Absolute lymphocyte count 2.26 X10^3/uL 0.83-4.51 [facility] Lymphocytes/100 WBC Auto (Un sp spec)Ordered By: Rocio Bartlett on 06-25-2024 Automated lymphocyte count as percentage of total leukocytes 31.2 % 19-41 [facility] MCV (RBC) [Entitic vol]Order ed By: Rocio Bartlett on 06-25-2024 MCV (mean corpuscular volume) determination 83.5 fL 80-94 [facility] MCV (mean corpuscular volume ) determinationOrdered By: Rocio Bartlett on 06-25-2024 MCV (RBC) [Entitic vol] 83.5 fL 80-94 [facility] Mean corpuscular hemoglobin (MCH) determinationOrdered By: Rocio Bartlett on 06-25-2024 MCH (RBC) [Entitic mass] 24.1 pg Low 27.0-32.0 [facility] Mean corpuscular hemoglobin (MCH) determination 24.1 pg Low 27.0-32.0 [facility] Mean corpuscular hemoglobin concentration (MCHC) determinationOrdered By: Rocio Bartlett on 06-25-2024 Mean corpuscular hemoglobin concentration (MCHC) determination 28.9 g/dL Low 32-36 [facility] Mean platelet volume determi nationOrdered By: Rocio Bartlett on 06-25-2024 Mean platelet volume determination 9.6 fl 6.2-12.0 [facility] Monocyte percentageOrdered B y: Rocio Bartlett on 06-25-2024 Monocytes/100 WBC (Bld) 9.5 % 0-10 [facility] Monocyte percentage 9.5 % 0-10 [facility] Neutrophil percentageOrdered By: Rocio Bartlett on 06-25-2024 Neutrophils/100 WBC (Bld) 54.7 % 47-70 [facility] Neutrophil percentage 54.7 % 47-70 [facility] Nucleated red blood cell per centageOrdered By: Rocio Bartlett on 06-25-2024 Nucleated red blood cell percentage 0 % 0-5 [facility] Platelet countOrdered By: Coretta Bartlett on 06-25-2024 Platelets (Bld) [#/Vol] 280 10*3/uL 150-450 [facility] Platelet count 280 K/mm3 150-450 [facility] Potassium measurementOrdered By: Rocio Bartlett on 06-25-2024 Potassium [Moles/Vol] 4.1 mmol/L 3.5-5.1 [facility] Potassium measurement 4.1 mmol/L 3.5-5.1 [facility] RBC Auto (Bld) [#/Vol]Ordere d By: Rocio Bartlett on 06-25-2024 RBC (Bld) [#/Vol] 4.19 10*6/uL Low 4.6-6.2 [facility] Automated blood erythrocyte count 4.19 M/mm3 Low 4.6-6.2 [facility] Serum anion gap measurementO rdered By: Rocio Bartlett on 06-25-2024 Serum anion gap measurement 7 5-15 [facility] Serum or plasma calcium sarah urement (mass/volume)Ordered By: Rocio Bartlett on 06-25-2024 Calcium [Mass/Vol] 8.8 mg/dL 8.5-10.1 [facility] Serum or plasma creatinine m easurement (mass/volume)Ordered By: Rocio Bartlett on 06-25-2024 Creatinine [Mass/Vol] 0.70 mg/dL 0.70-1.30 [facility] Serum or plasma urea nitroge n measurement (mass/volume)Ordered By: Rocio Bartlett on 06-25-2024 Urea nitrogen [Mass/Vol] 13 mg/dL 7-18 [facility] Sodium levelOrdered By: Mirtha Bartlett on 06-25-2024 Sodium [Moles/Vol] 135 mmol/L Low 136-145 [facility] Sodium level 135 mmol/L Low 136-145 [facility] Urea nitrogen [Mass/Vol]Orde red By: Rocio Bartlett on 06-25-2024 Serum or plasma urea nitrogen measurement (mass/volume) 13 mg/dL 7-18 [facility] White blood cell (WBC) count Ordered By: Rocio Bartlett on 06-25-2024 WBC (Bld) [#/Vol] 7.2 10*3/uL 4.4-11.0 [facility] White blood cell (WBC) count 7.2 K/mm3 4.4-11.0 [facility] Absolute lymphocyte countOrd ered By: Jacquelinefernanda Vikasmyranda on 06-19-2024 Lymphocytes Auto (Unsp spec) [#/Vol] 2.45 10*3/uL 0.83-4.51 [facility] Absolute neutrophil countOrd ered By: Jacquelinefernanda Reardonsmithmyranda on 06-19-2024 Absolute neutrophil count 4.4 X10^3/uL 2.0-7.7 [facility] Automated lymphocyte count a s percentage of total leukocytesOrdered By: Rocio Reardonsmithmyranda on 06-19-2024 Lymphocytes/100 WBC Auto (Unsp spec) 30.9 % 19-41 [facility] Basophil percentageOrdered B y: Rocio Reardonsmithmyranda on 06-19-2024 Basophils/100 WBC (Bld) 0.5 % 0-1 [facility] Basophil percentage 0.5 % 0-1 [facility] Eosinophil percentageOrdered By: Rocio Reardonsmithmyranda on 06-19-2024 Eosinophils/100 WBC (Bld) 3.7 % 0-5 [facility] Eosinophil percentage 3.7 % 0-5 [facility] Erythrocyte distribution wid th (RBC) [Ratio]Ordered By: Rocio Reardonsmithmyranda on 06-19-2024 Erythrocyte distribution width ratio 20.0 % High 11.6-14.6 [facility] Erythrocyte distribution width standard deviation 61.4 fl High 35.1-43.9 [facility] Erythrocyte distribution wid th ratioOrdered By: Rocio Reardonsmithmyranda on 06-19-2024 Erythrocyte distribution width (RBC) [Ratio] 20.0 % High 11.6-14.6 [facility] Erythrocyte distribution wid th standard deviationOrdered By: Corettasylvie Reardonsmithmyranda on 06-19-2024 Erythrocyte distribution width (RBC) [Ratio] 61.4 fl High 35.1-43.9 [facility] Hematocrit Auto (Bld) [Volum e fraction]Ordered By: Rocio Bartlett on 06-19-2024 Hematocrit (Bld) [Volume fraction] 35.5 % Low 40-54 [facility] Automated blood hematocrit (percentage) 35.5 % Low 40-54 [facility] Hemoglobin measurementOrdere d By: Rocio Bartlett on 06-19-2024 Hemoglobin (Bld) [Mass/Vol] 10.0 g/dL Low 13.0-16.5 [facility] Hemoglobin measurement 10.0 g/dL Low 13.0-16.5 [facility] Immature granulocytes/100 WB C Auto (Bld)Ordered By: Rocio Bartlett on 06-19-2024 Immature granulocytes/100 WBC (Bld) 0.800 % 0.0-0.9 [facility] Automated immature granulocyte percentage 0.800 % 0.0-0.9 [facility] Lymphocytes Auto (Unsp spec) [#/Vol]Ordered By: Rocio Bartlett on 06-19-2024 Absolute lymphocyte count 2.45 X10^3/uL 0.83-4.51 [facility] Lymphocytes/100 WBC Auto (Un sp spec)Ordered By: Rocio Bartlett on 06-19-2024 Automated lymphocyte count as percentage of total leukocytes 30.9 % 19-41 [facility] MCV (RBC) [Entitic vol]Order ed By: Rocio Bartlett on 06-19-2024 MCV (mean corpuscular volume) determination 83.3 fL 80-94 [facility] MCV (mean corpuscular volume ) determinationOrdered By: Rocio Bartlett on 06-19-2024 MCV (RBC) [Entitic vol] 83.3 fL 80-94 [facility] Mean corpuscular hemoglobin (MCH) determinationOrdered By: Rocio Bartlett on 06-19-2024 MCH (RBC) [Entitic mass] 23.5 pg Low 27.0-32.0 [facility] Mean corpuscular hemoglobin (MCH) determination 23.5 pg Low 27.0-32.0 [facility] Mean corpuscular hemoglobin concentration (MCHC) determinationOrdered By: Rocio Bartlett on 06-19-2024 Mean corpuscular hemoglobin concentration (MCHC) determination 28.2 g/dL Low 32-36 [facility] Mean platelet volume determi nationOrdered By: sylvie Bartlett on 06-19-2024 Mean platelet volume determination 9.6 fl 6.2-12.0 [facility] Monocyte percentageOrdered B y: Rocio Bartlett on 06-19-2024 Monocytes/100 WBC (Bld) 9.1 % 0-10 [facility] Monocyte percentage 9.1 % 0-10 [facility] Neutrophil percentageOrdered By: fannyrobstownfernanda Bartlett on 06-19-2024 Neutrophils/100 WBC (Bld) 55.0 % 47-70 [facility] Neutrophil percentage 55.0 % 47-70 [facility] Nucleated red blood cell per centageOrdered By: fannyrobstownfernanda Bartlett on 06-19-2024 Nucleated red blood cell percentage 0 % 0-5 [facility] Platelet countOrdered By: Coretta Bartlett on 06-19-2024 Platelets (Bld) [#/Vol] 307 10*3/uL 150-450 [facility] Platelet count 307 K/mm3 150-450 [facility] RBC Auto (Bld) [#/Vol]Ordere d By: Rocio Bartlett on 06-19-2024 RBC (Bld) [#/Vol] 4.26 10*6/uL Low 4.6-6.2 [facility] Automated blood erythrocyte count 4.26 M/mm3 Low 4.6-6.2 [facility] White blood cell (WBC) count Ordered By: Rocio Bartlett on 06-19-2024 WBC (Bld) [#/Vol] 7.9 10*3/uL 4.4-11.0 [facility] White blood cell (WBC) count 7.9 K/mm3 4.4-11.0 [facility] 36on 06-18-2024 36 I called and spoke art Lopez in regards to coordination of care for the patient. I discussed with Jessica what Said stated His wound seems to be healing well. I would recommend to continue wound care at this point. There is no tissue around the area to reconstruct the defect. He has better chance of healing by secondary intention at this point. Thank you. Lenard Ling MD. We confirmed that there are no ongoing appointments scheduled for the patient with since he would like the patient to continue care and management with wound care. I discussed routing this information over to DILSHAD Vargas that handles wound care for patient. SABINE Vargas CNP [facility] Op Wnd Ostomy Hbo Panda Connor RN [facility] Blood urea nitrogen (BUN)/cr eatinine ratioOrdered By: Rocio Bartlett on 06-18-2024 Blood urea nitrogen (BUN)/creatinine ratio 22.6 RATIO High 10-20 [facility] Calcium [Mass/Vol]Ordered By : Rocio Bartlett on 06-18-2024 Serum or plasma calcium measurement (mass/volume) 7.0 mg/dL Low 8.5-10.1 [facility] Carbon dioxide measurementOr dered By: Rocio Bartlett on 06-18-2024 CO2 [Moles/Vol] 22.0 mmol/L 21.0-32.0 [facility] Carbon dioxide measurement 22.0 mmol/L 21.0-32.0 [facility] Chloride measurementOrdered By: Rocio Bartlett on 06-18-2024 Chloride [Moles/Vol] 100 mmol/L 98-107 [facility] Chloride measurement 100 mmol/L 98-107 [facility] Creatinine [Mass/Vol]Ordered By: Rocio Bartlett on 06-18-2024 Serum or plasma creatinine measurement (mass/volume) 0.80 mg/dL 0.70-1.30 [facility] Estimated glomerular filtrat ion rate (GFR) AmericanOrdered By: Rocio Bartlett on 06-18-2024 Estimated glomerular filtration rate (GFR) 129 mL/min >60 [facility] Glomerular filtration rate ( GFR) estimationOrdered By: Rocio Bartlett on 06-18-2024 GFR/1.73 sq M.predicted among non-blacks MDRD (S/P/Bld) [Vol rate/Area] 107 mL/min/{1.73_m2} >60 [facility] Glomerular filtration rate (GFR) estimation 107 mL/min >60 [facility] Glucose measurementOrdered B y: Rocio Bartlett on 06-18-2024 Glucose [Mass/Vol] 180 mg/dL High 74-106 [facility] Glucose measurement 180 mg/dL High 74-106 [facility] Potassium measurementOrdered By: Rocio Bartlett on 06-18-2024 Potassium [Moles/Vol] 4.7 mmol/L 3.5-5.1 [facility] Potassium measurement 4.7 mmol/L 3.5-5.1 [facility] Serum anion gap measurementO rdered By: Rocio Bartlett on 06-18-2024 Serum anion gap measurement 10 5-15 [facility] Serum or plasma calcium sarah urement (mass/volume)Ordered By: Rocio Bartlett on 06-18-2024 Calcium [Mass/Vol] 7.0 mg/dL Low 8.5-10.1 [facility] Serum or plasma creatinine m easurement (mass/volume)Ordered By: Rocio Bartlett on 06-18-2024 Creatinine [Mass/Vol] 0.80 mg/dL 0.70-1.30 [facility] Serum or plasma urea nitroge n measurement (mass/volume)Ordered By: Rocio Bartlett on 06-18-2024 Urea nitrogen [Mass/Vol] 18 mg/dL 7-18 [facility] Sodium levelOrdered By: Mirtha Bartlett on 06-18-2024 Sodium [Moles/Vol] 132 mmol/L Low 136-145 [facility] Sodium level 132 mmol/L Low 136-145 [facility] Urea nitrogen [Mass/Vol]Orde red By: Rocio Bartlett on 06-18-2024 Serum or plasma urea nitrogen measurement (mass/volume) 18 mg/dL 7-18 [facility] 36on 06-15-2024 36 I attempted to retur n call to Jessica that called on the patients behalf inquiring about an appointment for the patient with our office or scheduling for surgery. There was no answer and I left a detailed message providing call back # [phone]. [facility] 36 I attempted to conta ct Hamzah as requested in regards to next steps for patient and coordination of care in the case the patient would be scheduled for an appointment or surgery. Per Said His wound seems to be healing well. I would recommend to continue wound care at this point. There is no tissue around the area to reconstruct the defect. He has better of healing by secondary intention at this point. Thank you. Lenard Goldberg Said, . I attempted to call to relay this information, there was no answer and I left a detailed message providing a call back # [phone]. [facility] 36 I attempted to retur n call to Jessica that called on the patients behalf inquiring about an appointment for the patient with our office or scheduling for surgery. There was no answer and I was unable to leave a message due to mailbox being full. Will attempt to contact again. [facility] 36on 06-14-2024 36 Spoke with nurse nohemi Lopez at [phone] regarding this patients photos that were recently sent of patients wound. When scheduling patients surgery please call Hamzah at [phone] as she is the one that will schedule this patients transportation as well. [facility] Absolute lymphocyte countOrd ered By: Rocio Bartlett on 06-04-2024 Lymphocytes Auto (Unsp spec) [#/Vol] 2.85 10*3/uL 0.83-4.51 [facility] Absolute neutrophil countOrd ered By: Rocio Bartlett on 06-04-2024 Absolute neutrophil count 5.8 X10^3/uL 2.0-7.7 [facility] Automated lymphocyte count a s percentage of total leukocytesOrdered By: Rocio Bartlett on 06-04-2024 Lymphocytes/100 WBC Auto (Unsp spec) 28.5 % 19-41 [facility] Basophil percentageOrdered B y: Rocio Bartlett on 06-04-2024 Basophils/100 WBC (Bld) 0.8 % 0-1 [facility] Basophil percentage 0.8 % 0-1 [facility] Blood urea nitrogen (BUN)/cr eatinine ratioOrdered By: Rocio Bartlett on 06-04-2024 Blood urea nitrogen (BUN)/creatinine ratio 22.8 RATIO High 10-20 [facility] Calcium [Mass/Vol]Ordered By : Rocio Bartlett on 06-04-2024 Serum or plasma calcium measurement (mass/volume) 9.2 mg/dL 8.5-10.1 [facility] Carbon dioxide measurementOr dered By: Rocio Bartlett on 06-04-2024 CO2 [Moles/Vol] 31.0 mmol/L 21.0-32.0 [facility] Carbon dioxide measurement 31.0 mmol/L 21.0-32.0 [facility] Chloride measurementOrdered By: Rocio Bartlett on 06-04-2024 Chloride [Moles/Vol] 99 mmol/L 98-107 [facility] Chloride measurement 99 mmol/L 98-107 [facility] Creatinine [Mass/Vol]Ordered By: Rocio Bartlett on 06-04-2024 Serum or plasma creatinine measurement (mass/volume) 0.84 mg/dL 0.70-1.30 [facility] Eosinophil percentageOrdered By: Rocio Bartlett on 06-04-2024 Eosinophils/100 WBC (Bld) 5.0 % 0-5 [facility] Eosinophil percentage 5.0 % 0-5 [facility] Erythrocyte distribution wid th (RBC) [Ratio]Ordered By: Rocio Bartlett on 06-04-2024 Erythrocyte distribution width ratio 19.8 % High 11.6-14.6 [facility] Erythrocyte distribution width standard deviation 58.4 fl High 35.1-43.9 [facility] Erythrocyte distribution wid th ratioOrdered By: Rocio Bartlett on 06-04-2024 Erythrocyte distribution width (RBC) [Ratio] 19.8 % High 11.6-14.6 [facility] Erythrocyte distribution wid th standard deviationOrdered By: Rocio Bartlett on 06-04-2024 Erythrocyte distribution width (RBC) [Ratio] 58.4 fl High 35.1-43.9 [facility] Estimated glomerular filtrat ion rate (GFR) AmericanOrdered By: Rocio Bartlett on 06-04-2024 Estimated glomerular filtration rate (GFR) 122 mL/min >60 [facility] Glomerular filtration rate ( GFR) estimationOrdered By: Rocio Bartlett on 06-04-2024 GFR/1.73 sq M.predicted among non-blacks MDRD (S/P/Bld) [Vol rate/Area] 101 mL/min/{1.73_m2} >60 [facility] Glomerular filtration rate (GFR) estimation 101 mL/min >60 [facility] Glucose measurementOrdered B y: Rocio Bartlett on 06-04-2024 Glucose [Mass/Vol] 228 mg/dL High 74-106 [facility] Glucose measurement 228 mg/dL High 74-106 [facility] Hematocrit Auto (Bld) [Volum e fraction]Ordered By: Rocio Bartlett on 06-04-2024 Hematocrit (Bld) [Volume fraction] 34.8 % Low 40-54 [facility] Automated blood hematocrit (percentage) 34.8 % Low 40-54 [facility] Hemoglobin measurementOrdere d By: Rocio Bartlett on 06-04-2024 Hemoglobin (Bld) [Mass/Vol] 10.0 g/dL Low 13.0-16.5 [facility] Hemoglobin measurement 10.0 g/dL Low 13.0-16.5 [facility] Immature granulocytes/100 WB C Auto (Bld)Ordered By: Rocio Bartlett on 06-04-2024 Immature granulocytes/100 WBC (Bld) 1.000 % High 0.0-0.9 [facility] Automated immature granulocyte percentage 1.000 % High 0.0-0.9 [facility] Lymphocytes Auto (Unsp spec) [#/Vol]Ordered By: Rocio Bartlett on 06-04-2024 Absolute lymphocyte count 2.85 X10^3/uL 0.83-4.51 [facility] Lymphocytes/100 WBC Auto (Un sp spec)Ordered By: Rocio Bartlett on 06-04-2024 Automated lymphocyte count as percentage of total leukocytes 28.5 % 19-41 [facility] MCV (RBC) [Entitic vol]Order ed By: Rocio Bartlett on 06-04-2024 MCV (mean corpuscular volume) determination 81.9 fL 80-94 [facility] MCV (mean corpuscular volume ) determinationOrdered By: Rocio Bartlett on 06-04-2024 MCV (RBC) [Entitic vol] 81.9 fL 80-94 [facility] Mean corpuscular hemoglobin (MCH) determinationOrdered By: Rocio Bartlett on 06-04-2024 MCH (RBC) [Entitic mass] 23.5 pg Low 27.0-32.0 [facility] Mean corpuscular hemoglobin (MCH) determination 23.5 pg Low 27.0-32.0 [facility] Mean corpuscular hemoglobin concentration (MCHC) determinationOrdered By: Rocio Bartlett on 06-04-2024 Mean corpuscular hemoglobin concentration (MCHC) determination 28.7 g/dL Low 32-36 [facility] Mean platelet volume determi nationOrdered By: Rocio Bartlett on 06-04-2024 Mean platelet volume determination 9.4 fl 6.2-12.0 [facility] Monocyte percentageOrdered B y: Rocio Bartlett on 06-04-2024 Monocytes/100 WBC (Bld) 6.6 % 0-10 [facility] Monocyte percentage 6.6 % 0-10 [facility] Neutrophil percentageOrdered By: Rocio Bartlett on 06-04-2024 Neutrophils/100 WBC (Bld) 58.1 % 47-70 [facility] Neutrophil percentage 58.1 % 47-70 [facility] Nucleated red blood cell per centageOrdered By: Rocio Bartlett on 06-04-2024 Nucleated red blood cell percentage 0 % 0-5 [facility] Platelet countOrdered By: Coretta Bartlett on 06-04-2024 Platelets (Bld) [#/Vol] 397 10*3/uL 150-450 [facility] Platelet count 397 K/mm3 150-450 [facility] Potassium measurementOrdered By: Rocio Bartlett on 06-04-2024 Potassium [Moles/Vol] 4.1 mmol/L 3.5-5.1 [facility] Potassium measurement 4.1 mmol/L 3.5-5.1 [facility] RBC Auto (Bld) [#/Vol]Ordere d By: Rocio Bartlett on 06-04-2024 RBC (Bld) [#/Vol] 4.25 10*6/uL Low 4.6-6.2 [facility] Automated blood erythrocyte count 4.25 M/mm3 Low 4.6-6.2 [facility] Serum anion gap measurementO rdered By: Rocio Bartlett on 06-04-2024 Serum anion gap measurement 7 5-15 [facility] Serum or plasma calcium sarah urement (mass/volume)Ordered By: Rocio Bartlett on 06-04-2024 Calcium [Mass/Vol] 9.2 mg/dL 8.5-10.1 [facility] Serum or plasma creatinine m easurement (mass/volume)Ordered By: Rocio Bartlett on 06-04-2024 Creatinine [Mass/Vol] 0.84 mg/dL 0.70-1.30 [facility] Serum or plasma urea nitroge n measurement (mass/volume)Ordered By: Rocio Bartlett on 06-04-2024 Urea nitrogen [Mass/Vol] 19 mg/dL High 7-18 [facility] Sodium levelOrdered By: Mirtha Bartlett on 06-04-2024 Sodium [Moles/Vol] 137 mmol/L 136-145 [facility] Sodium level 137 mmol/L 136-145 [facility] Urea nitrogen [Mass/Vol]Orde red By: Rocio Bartlett on 06-04-2024 Serum or plasma urea nitrogen measurement (mass/volume) 19 mg/dL High 7-18 [facility] White blood cell (WBC) count Ordered By: Rocio Bartlett on 06-04-2024 WBC (Bld) [#/Vol] 10.0 10*3/uL 4.4-11.0 [facility] White blood cell (WBC) count 10.0 K/mm3 4.4-11.0 [facility] Progress Noteon 05-30-2024 Progress Note Patient was identif ed and seen today via Telehealth by agreement and consent. I used the following Telehealth technology: Audio capability only. Total length of call 15 minutes. The patient was offered and advised video for a more comprehensive evaluation, but the patient declined or was unable to use video. Patient location: Patient Location: Home. This patient encounter is appropriate and reasonable under the circumstances: transportation issues and being paraplegic it is very inconvenient for him to come to the office to discuss imaging results . The patient has been advised of the potential risks and limitations of this mode of treatment (including but not limited to the absence of in-person examination) and has agreed to be treated in a remote fashion in spite of them. Any and all of the patient's/patient's family's questions on this issue have been answered and I have made no promises or guarantees to the patient. The patient has also been advised to contact this office for worsening conditions or problems, and seek emergency medical treatment and/or call 911 if the patient deems either necessary. The patient stated that they are currently in the [facility]. Patient was seen and evaluated back in February 2024 for a large sacral decubitus ulcer. MRI was ordered. Patient had the MRI performed on 05/11/2024 which revealed IMPRESSION: Extensive, granulation filled soft tissue ulceration along the posterior aspect of the sacrum and coccyx, with surrounding subcutaneous soft tissue and muscle edema. The ulceration extends deep to the sacrococcygeal cortex. Although somewhat limited by the susceptibility artifact, there is no evidence of definite bone marrow replacement to suggest osteomyelitis. Today we discussed proceeding with surgical treatment in the form of a large rotational gluteal artery sales driver flap versus 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 We discussed risk and benefits including but not limited to infection, bleeding, seroma and hematoma formation as well as inherent issues with flaps in the form of partial or complete necrosis. We discussed the need for absolute pressure offloading for 6 weeks after the surgery including air mattress bed, frequent turning, adequate nutrition. Recommended that the patient take a picture of the decubitus ulcer uploaded on the chart to be evaluated clinically. Will put surgery orders today. Reason for Consult: Large sacral decubitus ulcer most likely stage IV Requesting Physician: Patient referred by his facility CHIEF COMPLAINT: Stage IV sacral decubitus History Obtained From: patient HISTORY OF PRESENT ILLNESS: The patient is a 58 y.o. male who presents with significant history of traumatic fall from a chair early 2022. Patient reports that following the fall he sustained a spinal fracture at the prior surgical site with direct compression of the spinal cord. Since then patient has been paraplegic. He reports developing a sacral decubitus ulcer in February 2023. This has been managed at the facility where the patient stays with wet-to-dry dressing. Patient reports that prior to the traumatic event he was able to walk normally sometimes assisted with a cane for long distance walk. He also endorses significant history of pulmonary embolism since his traumatic incident. He is currently on therapeutic Eliquis, 5 mg every 12 hours. He denies any chest pain. Patient is a former smoker. He quit smoking back in 2003. He reports that his last weight in the facility was yesterday and it was recorded at 293 pounds. Past Medical History: Medical History Past Medical History: Diagnosis Date Acute posthemorrhagic anemia Acute respiratory failure with hypoxia ([facility]) Cellulitis of left lower limb Cellulitis of right lower limb Cellulitis of right lower limb Chronic diastolic (congestive) heart failure ([facility]) Chronic pain syndrome Colostomy status ([facility]/HCC) (HCC) Constipation Difficulty in walking, not elsewhere classified Dry eye syndrome of bilateral lacrimal glands Essential (primary) hypertension Gastroesophageal reflux disease without esophagitis Insomnia, unspecified Iron deficiency anemia, unspecified Low back pain, unspecified Morbid (severe) obesity due to excess calories ([facility]) Muscle weakness (generalized) Nasal congestion Nausea Need for assistance with personal care Neuromuscular dysfunction of bladder, unspecified Obstructive sleep apnea (adult) (pediatric) Other disorders of plasma-protein metabolism, not elsewhere classified Other mechanical complication of other urinary catheter, initial encounter ([facility]) Other muscle spasm Paraplegia, unspecified ([facility]) Peripheral vascular disease, unspecified ([facility]) Personal history of other diseases of urinary system Personal history of venous thrombosis and embolism Pleural effusion in other conditions classified elsewhere Pneumonia, bacterial Press (more content not included)... Normal [facility] Absolute lymphocyte countOrd ered By: Rocio Bartlett on 05-28-2024 Lymphocytes Auto (Unsp spec) [#/Vol] 2.51 10*3/uL 0.83-4.51 [facility] Absolute neutrophil countOrd ered By: Rocio Bartlett on 05-28-2024 Absolute neutrophil count 5.2 X10^3/uL 2.0-7.7 [facility] Automated lymphocyte count a s percentage of total leukocytesOrdered By: Rocio Bartlett on 05-28-2024 Lymphocytes/100 WBC Auto (Unsp spec) 27.5 % 19-41 [facility] Basophil percentageOrdered B y: Rocio Bartlett on 05-28-2024 Basophils/100 WBC (Bld) 0.7 % 0-1 [facility] Basophil percentage 0.7 % 0-1 [facility] Blood urea nitrogen (BUN)/cr eatinine ratioOrdered By: Rocio Bartlett on 05-28-2024 Blood urea nitrogen (BUN)/creatinine ratio 22.7 RATIO High 10-20 [facility] Calcium [Mass/Vol]Ordered By : Rocio Bartlett on 05-28-2024 Serum or plasma calcium measurement (mass/volume) 9.1 mg/dL 8.5-10.1 [facility] Carbon dioxide measurementOr dered By: Rocio Bartlett on 05-28-2024 CO2 [Moles/Vol] 31.0 mmol/L 21.0-32.0 [facility] Carbon dioxide measurement 31.0 mmol/L 21.0-32.0 [facility] Chloride measurementOrdered By: Rocio Bartlett on 05-28-2024 Chloride [Moles/Vol] 102 mmol/L 98-107 [facility] Chloride measurement 102 mmol/L 98-107 [facility] Creatinine [Mass/Vol]Ordered By: Rocio Bartlett on 05-28-2024 Serum or plasma creatinine measurement (mass/volume) 0.57 mg/dL Low 0.70-1.30 [facility] Eosinophil percentageOrdered By: Rocio Bartlett on 05-28-2024 Eosinophils/100 WBC (Bld) 5.1 % High 0-5 [facility] Eosinophil percentage 5.1 % High 0-5 [facility] Erythrocyte distribution wid th (RBC) [Ratio]Ordered By: Rocio Bartlett on 05-28-2024 Erythrocyte distribution width ratio 19.6 % High 11.6-14.6 [facility] Erythrocyte distribution width standard deviation 56.2 fl High 35.1-43.9 [facility] Erythrocyte distribution wid th ratioOrdered By: Rocio Bartlett on 05-28-2024 Erythrocyte distribution width (RBC) [Ratio] 19.6 % High 11.6-14.6 [facility] Erythrocyte distribution wid th standard deviationOrdered By: Rocio Bartlett on 05-28-2024 Erythrocyte distribution width (RBC) [Ratio] 56.2 fl High 35.1-43.9 [facility] Estimated glomerular filtrat ion rate (GFR) AmericanOrdered By: Rocio Bartlett on 05-28-2024 Estimated glomerular filtration rate (GFR) 188 mL/min >60 [facility] Glomerular filtration rate ( GFR) estimationOrdered By: Rocio Bartlett on 05-28-2024 GFR/1.73 sq M.predicted among non-blacks MDRD (S/P/Bld) [Vol rate/Area] 156 mL/min/{1.73_m2} >60 [facility] Glomerular filtration rate (GFR) estimation 156 mL/min >60 [facility] Glucose measurementOrdered B y: Rocio Bartlett on 05-28-2024 Glucose [Mass/Vol] 149 mg/dL High 74-106 [facility] Glucose measurement 149 mg/dL High 74-106 [facility] Hematocrit Auto (Bld) [Volum e fraction]Ordered By: Rocio Bartlett on 05-28-2024 Hematocrit (Bld) [Volume fraction] 32.8 % Low 40-54 [facility] Automated blood hematocrit (percentage) 32.8 % Low 40-54 [facility] Hemoglobin measurementOrdere d By: Rocio Bartlett on 05-28-2024 Hemoglobin (Bld) [Mass/Vol] 9.6 g/dL Low 13.0-16.5 [facility] Hemoglobin measurement 9.6 g/dL Low 13.0-16.5 [facility] Immature granulocytes/100 WB C Auto (Bld)Ordered By: Rocio Bartlett on 05-28-2024 Immature granulocytes/100 WBC (Bld) 0.500 % 0.0-0.9 [facility] Automated immature granulocyte percentage 0.500 % 0.0-0.9 [facility] Lymphocytes Auto (Unsp spec) [#/Vol]Ordered By: Rocio Bartlett on 05-28-2024 Absolute lymphocyte count 2.51 X10^3/uL 0.83-4.51 [facility] Lymphocytes/100 WBC Auto (Un sp spec)Ordered By: Rocio Bartlett on 05-28-2024 Automated lymphocyte count as percentage of total leukocytes 27.5 % 19-41 [facility] MCV (RBC) [Entitic vol]Order ed By: Rocio Bartlett on 05-28-2024 MCV (mean corpuscular volume) determination 79.0 fL Low 80-94 [facility] MCV (mean corpuscular volume ) determinationOrdered By: Rocio Bartlett on 05-28-2024 MCV (RBC) [Entitic vol] 79.0 fL Low 80-94 [facility] Mean corpuscular hemoglobin (MCH) determinationOrdered By: Rocio Bartlett on 05-28-2024 MCH (RBC) [Entitic mass] 23.1 pg Low 27.0-32.0 [facility] Mean corpuscular hemoglobin (MCH) determination 23.1 pg Low 27.0-32.0 [facility] Mean corpuscular hemoglobin concentration (MCHC) determinationOrdered By: Rocio Bartlett on 05-28-2024 Mean corpuscular hemoglobin concentration (MCHC) determination 29.3 g/dL Low 32-36 [facility] Mean platelet volume determi nationOrdered By: Rocio Bartlett on 05-28-2024 Mean platelet volume determination 9.4 fl 6.2-12.0 [facility] Monocyte percentageOrdered B y: Rocio Bartlett on 05-28-2024 Monocytes/100 WBC (Bld) 9.3 % 0-10 [facility] Monocyte percentage 9.3 % 0-10 [facility] Neutrophil percentageOrdered By: Rocio Bartlett on 05-28-2024 Neutrophils/100 WBC (Bld) 56.9 % 47-70 [facility] Neutrophil percentage 56.9 % 47-70 [facility] Nucleated red blood cell per centageOrdered By: Rocio Bartlett on 05-28-2024 Nucleated red blood cell percentage 0 % 0-5 [facility] Platelet countOrdered By: Coretta Bartlett on 05-28-2024 Platelets (Bld) [#/Vol] 374 10*3/uL 150-450 [facility] Platelet count 374 K/mm3 150-450 [facility] Potassium measurementOrdered By: Rocio Bartlett on 05-28-2024 Potassium [Moles/Vol] 3.8 mmol/L 3.5-5.1 [facility] Potassium measurement 3.8 mmol/L 3.5-5.1 [facility] RBC Auto (Bld) [#/Vol]Ordere d By: Rocio Bartlett on 05-28-2024 RBC (Bld) [#/Vol] 4.15 10*6/uL Low 4.6-6.2 [facility] Automated blood erythrocyte count 4.15 M/mm3 Low 4.6-6.2 [facility] Serum anion gap measurementO rdered By: Rocio Bartlett on 05-28-2024 Serum anion gap measurement 4 Low 5-15 [facility] Serum or plasma calcium sarah urement (mass/volume)Ordered By: Rocio Bartlett on 05-28-2024 Calcium [Mass/Vol] 9.1 mg/dL 8.5-10.1 [facility] Serum or plasma creatinine m easurement (mass/volume)Ordered By: Rocio Bartlett on 05-28-2024 Creatinine [Mass/Vol] 0.57 mg/dL Low 0.70-1.30 [facility] Serum or plasma urea nitroge n measurement (mass/volume)Ordered By: Rocio Bartlett on 05-28-2024 Urea nitrogen [Mass/Vol] 13 mg/dL 7-18 [facility] Sodium levelOrdered By: Mirtha Bartlett on 05-28-2024 Sodium [Moles/Vol] 137 mmol/L 136-145 [facility] Sodium level 137 mmol/L 136-145 [facility] Urea nitrogen [Mass/Vol]Orde red By: Rocio Bartlett on 05-28-2024 Serum or plasma urea nitrogen measurement (mass/volume) 13 mg/dL 7-18 [facility] White blood cell (WBC) count Ordered By: Rocio Bartlett on 05-28-2024 WBC (Bld) [#/Vol] 9.1 10*3/uL 4.4-11.0 [facility] White blood cell (WBC) count 9.1 K/mm3 4.4-11.0 [facility] Absolute neutrophil countOrd ered By: Rocio Bartlett on 05-21-2024 Absolute neutrophil count 6.2 X10^3/uL 2.0-7.7 [facility] Basophil percentageOrdered B y: Rocio Bartlett on 05-21-2024 Basophil percentage 0.6 % 0-1 [facility] Blood polychromasia detectio n by light microscopyOrdered By: Rocio Bartlett on 05-21-2024 Blood polychromasia detection by light microscopy 1+ [facility] Blood urea nitrogen (BUN)/cr eatinine ratioOrdered By: Rocio Bartlett on 05-21-2024 Blood urea nitrogen (BUN)/creatinine ratio 23.1 RATIO High 10-20 [facility] Calcium [Mass/Vol]Ordered By : Rocio Bartlett on 05-21-2024 Serum or plasma calcium measurement (mass/volume) 8.8 mg/dL 8.5-10.1 [facility] Carbon dioxide measurementOr dered By: Rocio Bartlett on 05-21-2024 Carbon dioxide measurement 31.0 mmol/L 21.0-32.0 [facility] Chloride measurementOrdered By: Rocio Bartlett on 05-21-2024 Chloride measurement 98 mmol/L 98-107 [facility] Creatinine [Mass/Vol]Ordered By: Rocio Bartlett on 05-21-2024 Serum or plasma creatinine measurement (mass/volume) 0.61 mg/dL Low 0.70-1.30 [facility] ESR (Bld) [Velocity]Ordered By: Rocio Bartlett on 05-21-2024 Erythrocyte sedimentation rate 67 mm/hr High 0-20 [facility] Eosinophil percentageOrdered By: Rocio Bartlett on 05-21-2024 Eosinophil percentage 3.7 % 0-5 [facility] Erythrocyte distribution wid th (RBC) [Ratio]Ordered By: Rocio Bartlett on 05-21-2024 Erythrocyte distribution width ratio 20.3 % High 11.6-14.6 [facility] Erythrocyte distribution width standard deviation 58.4 fl High 35.1-43.9 [facility] Estimated glomerular filtrat ion rate (GFR) AmericanOrdered By: Rocio Bartlett on 05-21-2024 Estimated glomerular filtration rate (GFR) 176 mL/min >60 [facility] Glomerular filtration rate ( GFR) estimationOrdered By: Rocio Bartlett on 05-21-2024 Glomerular filtration rate (GFR) estimation 146 mL/min >60 [facility] Glucose measurementOrdered B y: Rocio Bartlett on 05-21-2024 Glucose measurement 162 mg/dL High 74-106 [facility] Hematocrit Auto (Bld) [Volum e fraction]Ordered By: Rocio Bartlett on 05-21-2024 Automated blood hematocrit (percentage) 34.8 % Low 40-54 [facility] Hemoglobin measurementOrdere d By: Rocio Bartlett on 05-21-2024 Hemoglobin measurement 10.0 g/dL Low 13.0-16.5 [facility] Immature granulocytes/100 WB C Auto (Bld)Ordered By: Rocio Bartlett on 05-21-2024 Automated immature granulocyte percentage 1.000 % High 0.0-0.9 [facility] Lymphocytes Auto (Unsp spec) [#/Vol]Ordered By: Rocio Bartlett on 05-21-2024 Absolute lymphocyte count 2.70 X10^3/uL 0.83-4.51 [facility] Lymphocytes/100 WBC Auto (Un sp spec)Ordered By: Rocio Bartlett on 05-21-2024 Automated lymphocyte count as percentage of total leukocytes 25.7 % 19-41 [facility] MCV (RBC) [Entitic vol]Order ed By: Rocio Bartlett on 05-21-2024 MCV (mean corpuscular volume) determination 79.1 fL Low 80-94 [facility] Mean corpuscular hemoglobin (MCH) determinationOrdered By: Rocio Bartlett on 05-21-2024 Mean corpuscular hemoglobin (MCH) determination 22.7 pg Low 27.0-32.0 [facility] Mean corpuscular hemoglobin concentration (MCHC) determinationOrdered By: Rocio Bartlett on 05-21-2024 Mean corpuscular hemoglobin concentration (MCHC) determination 28.7 g/dL Low 32-36 [facility] Mean platelet volume determi nationOrdered By: Rocio Bartlett on 05-21-2024 Mean platelet volume determination 9.2 fl 6.2-12.0 [facility] Monocyte percentageOrdered B y: Rocio Bartlett on 05-21-2024 Monocyte percentage 9.8 % 0-10 [facility] Neutrophil percentageOrdered By: Rocio Bartlett on 05-21-2024 Neutrophil percentage 59.2 % 47-70 [facility] Nucleated red blood cell per centageOrdered By: Rocio Bartlett on 05-21-2024 Nucleated red blood cell percentage 0.2 % 0-5 [facility] Platelet countOrdered By: Coretta Bartlett on 05-21-2024 Platelet count 354 K/mm3 150-450 [facility] Potassium measurementOrdered By: Rocio Bartlett on 05-21-2024 Potassium measurement 3.6 mmol/L 3.5-5.1 [facility] RBC Auto (Bld) [#/Vol]Ordere d By: Rocio Bartlett on 05-21-2024 Automated blood erythrocyte count 4.40 M/mm3 Low 4.6-6.2 [facility] Serum anion gap measurementO rdered By: Rocio Bartlett on 05-21-2024 Serum anion gap measurement 6 5-15 [facility] Sodium levelOrdered By: Mirtha Bartlett on 05-21-2024 Sodium level 135 mmol/L Low 136-145 [facility] Urea nitrogen [Mass/Vol]Orde red By: Roico Bartlett on 05-21-2024 Serum or plasma urea nitrogen measurement (mass/volume) 14 mg/dL 7-18 [facility] White blood cell (WBC) count Ordered By: Rocio Bartlett on 05-21-2024 White blood cell (WBC) count 10.5 K/mm3 4.4-11.0 [facility] ALP [Catalytic activity/Vol] Ordered By: Rocio Bartlett on 05-18-2024 Serum or plasma alkaline phosphatase measurement 85 U/L 45-117 [facility] ALT [Catalytic activity/Vol] Ordered By: Rocio Bartlett on 05-18-2024 Serum or plasma alanine aminotransferase (ALT) measurement 20 U/L 16-61 [facility] Albumin [Mass/Vol]Ordered By : Rocio Bartlett on 05-18-2024 Serum or plasma albumin measurement (mass/volume) 2.5 g/dL Low 3.2-5.0 [facility] Albumin to globulin ratioOrd ered By: Rocio Bartlett on 05-18-2024 Albumin to globulin ratio 0.5 RATIO Low 0.9-2.4 [facility] Bilirubin, totalOrdered By: Rocio Bartlett on 05-18-2024 Bilirubin, total 0.20 mg/dL 0.20-1.00 [facility] Blood urea nitrogen (BUN)/cr eatinine ratioOrdered By: Rocio aBrtlett on 05-18-2024 Blood urea nitrogen (BUN)/creatinine ratio 22.2 RATIO High 10-20 [facility] C-reactive protein measureme nt by high sensitivity methodOrdered By: Roico Bartlett on 05-18-2024 C-reactive protein measurement by high sensitivity method 85.30 mg/L High 0.0-3.0 [facility] Calcium [Mass/Vol]Ordered By : Rocio Bartlett on 05-18-2024 Serum or plasma calcium measurement (mass/volume) 8.8 mg/dL 8.5-10.1 [facility] Carbon dioxide measurementOr dered By: Rocio Bartlett on 05-18-2024 Carbon dioxide measurement 31.0 mmol/L 21.0-32.0 [facility] Chloride measurementOrdered By: Rocio Bartlett on 05-18-2024 Chloride measurement 100 mmol/L 98-107 [facility] Creatinine [Mass/Vol]Ordered By: Rocio Bartlett on 05-18-2024 Serum or plasma creatinine measurement (mass/volume) 0.68 mg/dL Low 0.70-1.30 [facility] Estimated glomerular filtrat ion rate (GFR) AmericanOrdered By: Rocio Bartlett on 05-18-2024 Estimated glomerular filtration rate (GFR) 156 mL/min >60 [facility] Ferritin measurementOrdered By: Rocio Bartlett on 05-18-2024 Ferritin measurement 129 ng/mL 26-388 [facility] Glomerular filtration rate ( GFR) estimationOrdered By: Rocio Bartlett on 05-18-2024 Glomerular filtration rate (GFR) estimation 129 mL/min >60 [facility] Glucose measurementOrdered B y: Rocio Bartlett on 05-18-2024 Glucose measurement 186 mg/dL High 74-106 [facility] Iron (Unsp spec) [Mass/Mass] Ordered By: Rocio Bartlett on 05-18-2024 Iron measurement (mass/mass) 35 ug/dL Low 65-175 [facility] Lactate dehydrogenase (LDH) measurementOrdered By: Rocio Bartlett on 05-18-2024 Lactate dehydrogenase (LDH) measurement 211 U/L 87-241 [facility] No Panel InformationOrdered By: Rocio Bartlett on 05-18-2024 16 U/L 15-37 [facility] Potassium measurementOrdered By: Rocio Bartlett on 05-18-2024 Potassium measurement 4.3 mmol/L 3.5-5.1 [facility] Serum anion gap measurementO rdered By: Rocio Bartlett on 05-18-2024 Serum anion gap measurement 5 5-15 [facility] Serum globulin measurementOr dered By: Rocio Bartlett on 05-18-2024 Serum globulin measurement 4.9 g/dL High 2.2-4.2 [facility] Sodium levelOrdered By: Mirtha Bartlett on 05-18-2024 Sodium level 136 mmol/L 136-145 [facility] TIBCOrdered By: Rocio florez on 05-18-2024 TIBC 204 ug/dL Low 250-450 [facility] Total proteinOrdered By: Williams Bartlett on 05-18-2024 Total protein 7.4 g/dL 6.4-8.2 [facility] Urea nitrogen [Mass/Vol]Orde red By: Rocio Bartlett on 05-18-2024 Serum or plasma urea nitrogen measurement (mass/volume) 15 mg/dL 7-18 [facility] 36on 04-23-2024 36 Carmen (IRA nurse) was returning my call in regards to the voicemail I previously left pertaining to the information I received in regards to the MRI and sedation not being provided. I notified Carmen that I called [facility] and inquired about MRI and sedation and I was told from a marketing technology specialist that they do not sedate patient's for MRI's and if the patient required sedation that the patient would need to be sedated within his facility prior to arriving for his MRI, which would be the same protocol at our [facility]. Carmen stated she will discuss options with patient and for now keep the scheduled MRI appointment and follow-up with our office in regards to if the patient will agree to the MRI being done without sedation or not be agreeable. [facility] 36 Called Carmen (INTERMEDIATE nurse) in regards to MRI and further information I have obtained in regards to the MRI after calling [facility] they stated they do not sedate patient's there for MRI's to be done and was just calling Carmen back to inform her of that information, no answer but LVM for Carmen to call back to discuss further. [place] [id number] Called Carmen (INTERMEDIATE nurse) in regards to MRI order and discussed with her that Kayli Felder PA-C would prescribe Xanax for the patient to take for the MRI. Carmen stated she called [facility] and they would accommodate for the patient to be sedated for an MRI. I discussed with her the options that I was aware of and told her that they should contact patient's insurance to see if they would cover the MRI and call back to let us know the outcome and I would discuss it further with . [facility] 36on 04-20-2024 36 Called Camren (IRA nurse) in regards to MRI order after speaking with , LVM for Carmen to call office back in regards to patients MRI. [place] [id number] Carmen (IRA nurse) called in because Melissa is claustrophobic and Dr Ling ordered an MRI for him. Carmen was inquiring if he can go to [facility] and be sedated for MRI. Please call Carmen back/ will need to fax new order to [facility] as well. Normal [facility] Gastroenterology Visit Repor ton 04-16-2024 Gastroenterology Visit Report Normal [facility] Oncology Visit Reporton 2 Oncology Visit Report Normal [facility] CNOVon 04-02-2024 CNOV Office Visit (UROLMD ) ----- MELISSA ELIAS ([id number]) 1965 Date Time Provider Department 04/02/24 8:15 AM WILLEM GLASER During your visit today, we recorded the following information about you: Willem Glaser MD 04/02/2024 9:23 AM Signed [facility] UROLOGY CLINIC NOTE Patient: Melissa Elias Provider: Willem Glaser MD : 1965 Date of Service: 10/07/2023 PCP: Peter Thayer DO Chief complaint/Identification: Melissa Elias is a 58 year old male patient who presents for evaluation of urinary retention. ASSESSMENT: 1. Suprapubic catheter (HCC) - ICD9: V44.59, ICD10: Z93.59 (primary diagnosis) 2. Paraplegia (HCC) - ICD9: 344.1, ICD10: G82.20 3. Urinary retention - ICD9: 788.20, ICD10: R33.9 4. Wound of sacral region, sequela - ICD9: 906.0, ICD10: S31.000S 58 year old male s/p SPT placement - Exchanged in office today PLAN: Reviewed IR notes and imaging Continue monthly SPT changes (at his facility or here with nursing) ALFONSO follow up in 1 year Willem Glaser MD HPI: Melissa Elias is a 58 year old year old male who is being seen for urinary retention. PMHx: paraplegia, chronic sacral wound, chronic urinary retention 04/02/2024 SPT changed in office today with sterile technique. Changed without issue for 18F catheter. 02/06/2024: IR placement of SPT 10/07/2023 Presents for Bartlett catheter change. Nursing requested urology changes catheter as last month he had a traumatic Bartlett insertion, resulting in gross hematuria and need for cystoscopy/clot evacuation at outside hospital. - Discussed SPT. Patient will consider. 07/30/2023: C/S [place] - Hematuria after Bartlett malpositioned in prostatic urethra Patient has had his Bartlett catheter since last year. Reports it was placed because of his sacral wound. Reports he was urinating prior to catheter placement. Says he was not incontinent of urine. REVIEW OF SYSTEMS: A ROS was performed and pertinent negatives and positives can be found in the HPI. RELEVANT IMAGING STUDIES (most recent): No recent imaging LABS/INVESTIGATIONS: Urine Chemstrip: NA Creatinine Date Value Ref Range Status 08/12/2023 0.52 (L) 0.73 - 1.22 mg/dL Final 08/11/2023 0.54 (L) 0.73 - 1.22 mg/dL Final 08/09/2023 0.46 (L) 0.73 - 1.22 mg/dL Final 08/08/2023 0.44 (L) 0.73 - 1.22 mg/dL Final Hemoglobin Date Value 02/06/2024 7.8 g/dL 01/12/2021 9.1 G/DL Hematocrit (%) Date Value 02/06/2024 28.7 01/12/2021 29.0 HCT (%) Date Value 12/27/2022 28.9 WBC Date Value 02/06/2024 9.90 k/uL 12/27/2022 5.3 K/uL 01/12/2021 7.8 K/CUMM No results found for: PSA, PSAPER HISTORIES History reviewed. No pertinent family history. PAST MEDICAL HISTORY Diagnosis Date Back pain BMI 50.0-59.9, adult (HCC) Chronic indwelling Bartlett catheter 10/07/2023 HTN (hypertension) Obesity Paraplegia (HCC) Urinary retention Wound of sacral region, sequela PAST SURGICAL HISTORY Procedure Laterality Date PAST SURGICAL HISTORY OF 08/25/2016 L4-5 TLIF [place] L4-5 DOS 08/25/2016 second surgery 03-09-17 PICC LINE INSERTION (PICC TEAM) (AK) 12/01/2022 TONSILLECTOMY AND ADENOIDECTOMY HX Social History Tobacco Use Smoking status: Never Passive exposure: Never Smokeless tobacco: Never Vaping Use Vaping status: Never Used Substance Use Topics Alcohol use: No Drug use: No ALLERGIES No Known Allergies Current Outpatient Medications Medication Sig Dispense Refill apixaban (ELIQUIS) 5 mg tab(s) Take 5 mg by mouth two times a day. melatonin 3 mg capsules Take 3 mg by mouth daily at bedtime. oxyCODONE IR (ROXICODONE) 10 mg tab Take 10 mg by mouth as needed for pain. amLODIPine (NORVASC) 10 mg tablet Take 10 mg by mouth once daily. carvedilol (COREG) 12.5 mg tablet Take 12.5 mg by mouth two times a day with meals. loratadine (CLARITIN) 10 mg tablet Take 10 mg by mouth once daily. metFORMIN (GLUCOPHAGE) 500 mg tablet Take 500 mg by mouth daily with breakfast. cephALEXin (KEFLEX) 500 mg capsule Take 500 mg by mouth four times daily. guaiFENesin (MUCINEX) 600 mg 12 hr tablet Take 1 tablet by mouth two times a day as needed (congestion). gabapentin (NEURONTIN) 100 mg capsule Take 1 capsule by mouth every 8 hours for 30 days. diphenhydrAMINE-Zinc Acetate (BENADRYL) cream Apply to affected area three times a day as needed for itching/rash. FOR EXTERNAL USE ONLY APPLY TO: BACK sodium hypochlorite (DAKIN'S QUARTER STRENGTH) 0.125 % soln Irrigate 1 mL as instructed two times a day. FOR EXTERNAL USE ONLY APPLY TO: Sacrum wound with the dressing change insulin glargine 100 unit/mL (3 mL) Inject 20 Units subcutaneously every morning. furosemide (LASIX) 40 mg tablet Take 1 tablet by mouth every Tuesday and (more content not included)... Normal [facility] 36on 03-30-2024 36 Caregiver called in to cancel the appt in Apr. Said it was not needed. Normal [facility] BRCon 03-13-2024 RC Normal [facility] Comment on above: Result Comment: [id number] AN RC TRANSFUSED 03/14/24 [id number] AN RC TRANSFUSED 03/14/24 0938 Performed By: #### B RC, BTS ####[facility] [id number] [place], [place], [id number] Type AND Screenon 03-13-2024 ABO and Rh group Nom (Bld) Blood group A Rh(D) positive [facility] Comment on above: Order Comment: [id number] Performed By: #### B , BTS ####[facility] [address] [place], [place], [address] 36on 03-09-2024 36 Carmen with [facility] called to get phone number for Central Scheduling to coordinate and schedule patients MRI. Normal [facility] Office Visiton 02-29-2024 Follow-up visit [id number] Annie Elias 1965 M Date Provider Department Center 02/29/2024 50148-VOMVLENARD LING PLASTIC None No family history on file Level of Service:50143 [place] OFFICE/OUTPATIENT NEW MODERATE MDM 45 MINUTES Reason for Visit and Comments: New Patient [542] Normal [facility] Progress Noteon 02-29-2024 Progress Note Error Normal [facility] Progress Note Department of Plasti c Surgery - Adult Attending Consult Note Reason for Consult: Large sacral decubitus ulcer most likely stage IV Requesting Physician: Patient referred by his facility CHIEF COMPLAINT: Stage IV sacral decubitus History Obtained From: patient HISTORY OF PRESENT ILLNESS: The patient is a 58 y.o. male who presents with significant history of traumatic fall from a chair early 2022. Patient reports that following the fall he sustained a spinal fracture at the prior surgical site with direct compression of the spinal cord. Since then patient has been paraplegic. He reports developing a sacral decubitus ulcer in February 2023. This has been managed at the facility where the patient stays with wet-to-dry dressing. Patient reports that prior to the traumatic event he was able to walk normally sometimes assisted with a cane for long distance walk. He also endorses significant history of pulmonary embolism since his traumatic incident. He is currently on therapeutic Eliquis, 5 mg every 12 hours. He denies any chest pain. Patient is a former smoker. He quit smoking back in 2003. He reports that his last weight in the facility was yesterday and it was recorded at 293 pounds. Past Medical History: Past Medical History: Diagnosis Date Acute posthemorrhagic anemia Acute respiratory failure with hypoxia ([facility]) Cellulitis of left lower limb Cellulitis of right lower limb Cellulitis of right lower limb Chronic diastolic (congestive) heart failure ([facility]) Chronic pain syndrome Colostomy status ([facility]) (HCC) Constipation Difficulty in walking, not elsewhere classified Dry eye syndrome of bilateral lacrimal glands Essential (primary) hypertension Gastroesophageal reflux disease without esophagitis Insomnia, unspecified Iron deficiency anemia, unspecified Low back pain, unspecified Morbid (severe) obesity due to excess calories ([facility]) Muscle weakness (generalized) Nasal congestion Nausea Need for assistance with personal care Neuromuscular dysfunction of bladder, unspecified Obstructive sleep apnea (adult) (pediatric) Other disorders of plasma-protein metabolism, not elsewhere classified Other mechanical complication of other urinary catheter, initial encounter ([facility]) Other muscle spasm Paraplegia, unspecified ([facility]) Peripheral vascular disease, unspecified ([facility]) Personal history of other diseases of urinary system Personal history of venous thrombosis and embolism Pleural effusion in other conditions classified elsewhere Pneumonia, bacterial Pressure ulcer of right buttock, stage 3 ([facility]) Pressure ulcer of sacral region, stage 4 ([facility]) Pressure ulcer, buttock, right, unstageable ([facility]) Retention of urine, unspecified Spinal stenosis, lumbar region, without neurogenic claudication Type 2 diabetes mellitus with polyneuropathy ([facility]) Unspecified bacterial pneumonia Unspecified infectious disease Unspecified protein-calorie malnutrition ([facility]) Past Surgical History: Past Surgical History: Procedure Laterality Date BACK SURGERY 08/2005 lumbar BACK SURGERY 2017 lumbar revision BACK SURGERY 12/2020 Lumbar and t REPLACEMENT TOTAL HIP LATERAL POSITION Right 08/2020 Current Medications: Current Outpatient Medications Medication Instructions amLODIPine (NORVASC) 10 mg, Oral, Daily apixaban (ELIQUIS) 5 mg, Oral, 2 times daily carboxymethylcellulose PF (Refresh Plus) 0.5 % ophthalmic solution 1 drop, Both Eyes, 2 times daily PRN carvedilol (COREG) 12.5 mg, Oral, 2 times daily with meals cetirizine (ZYRTEC) 10 mg, Oral, Daily diphenhydrAMINE (BENADRYL) 25 mg, Oral, Every 8 hours PRN ertapenem 1,000 mg in sodium chloride 0.9 % 50 mL IVPB 1,000 mg, IntraVENous, Every 24 hours gabapentin (NEURONTIN) 100 mg, Oral, 2 times daily guaiFENesin ER 1,200 mg, Oral, 2 times daily, Do not crush, chew, or split. insulin glargine (LANTUS) 24 Units, SubCUTAneous, Every morning melatonin 6 mg, Oral, Nightly Methocarbamol 1,000 mg, Oral, Every 8 hours PRN naloxone (NARCAN) 0.4 mg, IntraVENous, Every 5 min PRN pantoprazole (PROTONIX) 40 mg, Oral, Daily before breakfast, Do not crush, chew, or split. polyethylene glycol (PEG) 3350 (MIRALAX) 17 g, Oral, Daily PRN senna-docusate sodium (Senokot-S) 8.6-50 MG tablet 2 tablets, Oral, Nightly Allergies: Patient has no known allergies. Social History: Social History Socioeconomic History Marital status: Single Spouse name: Not on file Number of children: Not on file Years of education: Not on file Highest education level: Not on file Occupational History Not on file Tobacco Use Smoking status: Not on file Smokeless tobacco: Not on file Substance and Sexual Activity Alcohol use: Not on file Drug use: Not on file Sexual activity: Not on file Other Topics Concern Not on file Social History Narrative Not on file Social Determinants of Health Financial Resource Strain: Low Risk (more content not included)... Normal [facility] 02-14-2024 [facility] Comment on above: Result Comment: [id number] AP TRANSFUSED 02/15/24 1118 Performed By: #### B , [facility] ####[facility] [address] [place], [place], [address] Type AND Screenon 02-14-2024 Ab SCREEN GEL Negative Normal [facility] Comment on above: Order Comment: [id number] Performed By: #### B ROSE, [facility] ####[facility] [address] [place], [place], [address] ABO and Rh group Nom (Bld) Blood group A Rh(D) positive Normal [facility] Comment on above: Order Comment: [id number] Performed By: #### B , [facility] ####[facility] [address] [place], [place], [address] CNPNon 02-13-2024 CNPN Telephone (UROLMD) ----- MELISSA ELIAS ([id number]) 1965 M Date Time Provider Department 02/13/24 WILLEM GLASER During your visit today, we recorded the following information about you: Boaz Hernandez RN 02/13/2024 1:08 PM Signed Patient alf called from [phone] ([facility]), they were requesting to know when or if patient should follow up with urology. A called back was made and message left that patient would need a 4-6 week follow up with Dr Glaser to have catheter changed for the first time. Once this is completed then catheter could be changed by nursing either at Dr's office or at alf by nursing staff. Boaz Hernandez RN 02/14/2024 10:59 AM Signed Called and spoke with [facility] and she will get patient scheduled with Dr Glaser for first supra pubic tube change. Allergies As of Date: 02/13/2024 (No Known Allergies) Date Reviewed: 02/06/2024 Reviewed by: Giovanna Cadet RN - Fully Assessed Reason for Visit: Patient Update [1234] Prescriptions as of 02/14/2024 - apixaban (ELIQUIS) 5 mg tab(s) Take 5 mg by mouth two times a day. - melatonin 3 mg capsules Take 3 mg by mouth daily at bedtime. - oxyCODONE IR (ROXICODONE) 10 mg tab Take 10 mg by mouth as needed for pain. - amLODIPine (NORVASC) 10 mg tablet Take 10 mg by mouth once daily. - carvedilol (COREG) 12.5 mg tablet Take 12.5 mg by mouth two times a day with meals. - loratadine (CLARITIN) 10 mg tablet Take 10 mg by mouth once daily. - metFORMIN (GLUCOPHAGE) 500 mg tablet Take 500 mg by mouth daily with breakfast. - cephALEXin (KEFLEX) 500 mg capsule Take 500 mg by mouth four times daily. - guaiFENesin (MUCINEX) 600 mg 12 hr tablet Take 1 tablet by mouth two times a day as needed (congestion). - gabapentin (NEURONTIN) 100 mg capsule Take 1 capsule by mouth every 8 hours for 30 days. - diphenhydrAMINE-Zinc Acetate (BENADRYL) cream Apply to affected area three times a day as needed for itching/rash. FOR EXTERNAL USE ONLY APPLY TO: BACK - sodium hypochlorite (DAKIN'S QUARTER STRENGTH) 0.125 % soln Irrigate 1 mL as instructed two times a day. FOR EXTERNAL USE ONLY APPLY TO: Sacrum wound with the dressing change - insulin glargine 100 unit/mL (3 mL) Inject 20 Units subcutaneously every morning. - furosemide (LASIX) 40 mg tablet Take 1 tablet by mouth every Tuesday and Tuesday. - morphine SR (MS CONTIN) 15 mg 12 hr tablet Take 1 tablet by mouth every 12 hours for 7 days. - insulin needles, DISPOSABLE, (BD INSULIN PEN NEEDLE UF) 31 gauge x 5/16 1 Each four times daily. - alcohol swabs Apply 1 application to affected area four times daily. - acetaminophen (TYLENOL) 500 mg tablet 2 tablets by ORAL/FEEDING TUBE route every 6 hours as needed for pain or fever (specify) (mild pain). - acetylcysteine (MUCOMYST) 200 mg/mL (20 %) solution Inhale 1 mL as instructed every 6 hours as needed (secretions). - albuterol (PROVENTIL) 2.5 mg /3 mL (0.083 %) nebulizer solution Use 3 mL via nebulizer every 6 hours as needed for wheezing/shortness of breath. - aspirin 81 mg chewable tablet 1 tablet by ORAL/FEEDING TUBE route once daily. - insulin lispro 100 unit/mL injection Inject 0-5 Units subcutaneously with meals and at bedtime. Scale 1 If Blood Glucose (mg/dL) is: Less than 110 Give 0 units 111-150 Give 0 units 151-200 Give 1 unit 201-250 Give 2 units 251-300 Give 3 units 301-350 Give 4 units 351-400 Give 5 units Greater than 400 Give 5 units and Notify Provider Notify provider if 2 consecutive blood glucose values in the previous 24 hours are greater than 250 mg/dL and there have been no changes to the insulin regimen in the previous 24 hours. - methocarbamol 1,000 mg tablet Take 1 tablet by mouth three times a day as needed (muscle spasms). - methyl salicylate 30% - menthol 10% (ICY HOT) 30-10 % cream Apply to affected area three times a day as needed (upper back back). - miconazole 2 % powder Apply 1 application to affected area two times a day. - ondansetron, PF, (ZOFRAN) 4 mg/2 mL soln Inject 4 mg intravenously every 6 hours as needed for nausea/vomiting. - orphenadrine (NORFLEX) 30 mg/mL injection Inject 1 mL intravenously every 12 hours. - pantoprazole DR (PROTONIX) 40 mg tablet Take 1 tablet by mouth daily at 6 am. - polyethylene glycol 3350 17 gram packet 1 Packet by ORAL/FEEDING TUBE route once daily. Dissolve dose in 4 - 8 ounces of liquid and take as directed. - rivaroxaban (XARELTO) 20 mg tablet Take 1 tablet by mouth daily with dinner. - senna (SENOKOT) 8.6 mg tab Take 1 tablet by mouth two times a day. - sodium chloride 0.65 % nasal spray Use 2 Sprays in each nostril as needed. - triamcinolone acetonide (KENALOG) 0.1 % cream Apply to affected area three times a day as needed. - naloxone 4 mg/actuation nasal spray (NARCAN) Use 1 spray in one nostril as needed for (more content not included)... Normal [facility] [id number] 02-08-2024 ANTIBODY ID Negative Normal [facility] Comment on above: Performed By: #### B ROSE, [id number], BRC, [id number] ####[facility] [address] [place], [address] BRCon 02-08-2024 RC Normal [facility] Comment on above: Result Comment: [id number] AN RC TRANSFUSED 02/09/24 1208 Performed By: #### B ROSE, [id number], BR, [id number] ####[facility] [address] [place], [place], [address] Type AND Screenon 02-08-2024 Ab SCREEN GEL TNP Normal [facility] Comment on above: Result Comment: AMENDED REPORT 02/08/24 0951: previously reported as:POSITIVE Performed By: #### B ROSE, [id number], BR, [id number] ####[facility] [address] [place], [place], [address] ABO and Rh group Nom (Bld) Blood group A Rh(D) positive [facility] Comment on above: Performed By: #### B ROSE, [id number], BRC, [id number] ####[facility] [address] [place], [place], [address] BRIEF OP NOTon 02-06-2024 BRIEF OP NOT HNO ID: [id number] Author: AMY KRAUSE MD Service: Interventional Radiology Author Type: Physician Type: Brief Op Note Filed: 02/06/2024 10:34 Note Text: BRIEF OPERATIVE / PROCEDURE NOTE LOG ID: [id number] SURGERY/PROCEDURE DATE: 02/06/2024 INCISION/PROCEDURE START TIME: 10:15 AM INCISION CLOSE/PROCEDURE END TIME: 10:30 AM SURGEON(S)/PROCEDURALIST( S) AND SUPERVISOR [employer](S): Surgeons and Role: * Amy Krause MD - Primary No Additional Staff SURGERY/PROCEDURE(S): Suprapubic bladder catheter placement. ANESTHESIA: Procedural Sedation FINDINGS: 18 [employer] tip Bartlett catheter placed as requested. ESTIMATED BLOOD LOSS: 2 mL SPECIMENS: None COMPLICATIONS: None PRE-OP/PRE-PROCEDURE DIAGNOSIS: Chronic urinary retention. POST-OP/POST-PROCEDURE DIAGNOSIS: Same as Preop Patient was accompanied to the next level of care by a licensed practitioner from the surgical team pending completion of this brief op note (or operative note) SIGNATURE: Amy Krause MD PATIENT NAME: Melissa Elias DATE: February 06, 2024 TIME: 10:32 AM Normal [facility] CBC panel Auto (Bld)on 02-05 Erythrocyte distribution width (RBC) [Ratio] 19.5 % High 11.5-15.0 [facility] Comment on above: Order Comment: Speci men Type: BLOOD SPECIMEN Ordering Facility: [facility] Address: [address] [place] [address] Performed By: #### 5 8410-2 #### [facility] CLIA [id number] [address] [place] Hematocrit (Bld) [Volume fraction] 28.7 % Low 39.0-51.0 [facility] Comment on above: Order Comment: Speci men Type: BLOOD SPECIMEN Ordering Facility: [facility] Address: [address] [place] [address] Performed By: #### 5 8410-2 #### [facility] CLIA [id number] [address] [place] [address] [place] Hemoglobin (Bld) [Mass/Vol] 7.8 g/dL Low 13.0-17.0 [facility] Comment on above: Order Comment: Speci men Type: BLOOD SPECIMEN Ordering Facility: [facility] Address: [address] [place] [address] Performed By: #### 5 8410-2 #### [facility] CLIA [id number] [address] [place] [address] [place] MCH (RBC) [Entitic mass] 19.4 pg Low 26.0-34.0 [facility] Comment on above: Order Comment: Speci men Type: BLOOD SPECIMEN Ordering Facility: [facility] Address: [address] [place] [address] Performed By: #### 5 8410-2 #### [facility] CLIA [id number] [address] MCHC (RBC) [Mass/Vol] 27.2 g/dL Low 30.5-36.0 [facility] Comment on above: Order Comment: Speci men Type: BLOOD SPECIMEN Ordering Facility: [facility] Address: [address] [place] [address] Performed By: #### 5 8410-2 #### [facility] CLIA [id number] [address] MCV (RBC) [Entitic vol] 71.2 fL Low 80.0-100.0 [facility] Comment on above: Order Comment: Speci men Type: BLOOD SPECIMEN Ordering Facility: [facility] Address: [address] [place] [address] Performed By: #### 5 8410-2 #### [facility] CLIA [id number] [address] Nucleated RBC (Bld) [#/Vol] 10*3/uL Normal <0.01 [facility] Comment on above: Order Comment: Speci men Type: BLOOD SPECIMEN Ordering Facility: [facility] Address: [address] [place] [address] Performed By: #### 5 8410-2 #### [facility] CLIA [id number] [address] Platelet mean volume (Bld) [Entitic vol] 8.6 fL Low 9.0-12.7 [facility] Comment on above: Order Comment: Speci men Type: BLOOD SPECIMEN Ordering Facility: [facility] Address: [address] [place] [address] Performed By: #### 5 8410-2 #### [facility] CLIA [id number] [address] Platelets (Bld) [#/Vol] 458 10*3/uL High 150-400 [facility] Comment on above: Order Comment: Speci men Type: BLOOD SPECIMEN Ordering Facility: [facility] Address: [address] [place] [address] Performed By: #### 5 8410-2 #### [facility] CLIA [id number] [address] [place] RBC (Bld) [#/Vol] 4.03 10*6/uL Low 4.20-6.00 [facility] Comment on above: Order Comment: Speci men Type: BLOOD SPECIMEN Ordering Facility: [facility] Address: [address] [place] [address] Performed By: #### 5 8410-2 #### [facility] CLIA [id number] [address] [place] WBC (Bld) [#/Vol] 9.90 10*3/uL Normal 3.70-11.00 [facility] Comment on above: Order Comment: Speci men Type: BLOOD SPECIMEN Ordering Facility: [facility] Address: [address] [place] [address] Performed By: #### 5 8410-2 #### [facility] CLIA [id number] [address] OF [facility] HISTORY PHYSICALon HISTORY PHYSICAL HNO ID: [id number] Author: AMY KRAUSE MD Service: Interventional Radiology Author Type: Physician Type: H&P Filed: 02/06/2024 09:58 Note Text: PROCEDURAL SEDATION HISTORY AND PHYSICAL EXAM SERVICE DATE: 02/06/2024 SERVICE TIME: 9:58 AM Subjective HPI: This is a 58 year old male who presents with chronic urinary retention. PAST ANESTHESIA HISTORY: No history of adverse event PAST MEDICAL HISTORY Diagnosis Date Back pain BMI 50.0-59.9, adult (HCC) Chronic indwelling Bartlett catheter 10/07/2023 HTN (hypertension) Obesity Paraplegia (HCC) Urinary retention Wound of sacral region, sequela PAST SURGICAL HISTORY Procedure Laterality Date PAST SURGICAL HISTORY OF 08/25/2016 L4-5 TLIF [place] L4-5 DOS 08/25/2016 second surgery 03-09-17 PICC LINE INSERTION (PICC TEAM) ([place]) 12/01/2022 TONSILLECTOMY AND ADENOIDECTOMY HX Prior to Admission medications as of 02/06/24 0955 Medication Sig Last Dose Taking melatonin 3 mg capsules Take 3 mg by mouth daily at bedtime. 02/05/2024 Yes oxyCODONE IR (ROXICODONE) 10 mg tab Take 10 mg by mouth as needed for pain. 02/05/2024 at 0600 Yes amLODIPine (NORVASC) 10 mg tablet Take 10 mg by mouth once daily. 02/05/2024 Yes carvedilol (COREG) 12.5 mg tablet Take 12.5 mg by mouth two times a day with meals. 02/05/2024 Yes loratadine (CLARITIN) 10 mg tablet Take 10 mg by mouth once daily. 02/05/2024 Yes metFORMIN (GLUCOPHAGE) 500 mg tablet Take 500 mg by mouth daily with breakfast. 02/05/2024 Yes cephALEXin (KEFLEX) 500 mg capsule Take 500 mg by mouth four times daily. 02/05/2024 Yes guaiFENesin (MUCINEX) 600 mg 12 hr tablet Take 1 tablet by mouth two times a day as needed (congestion). 02/05/2024 Yes diphenhydrAMINE-Zinc Acetate (BENADRYL) cream Apply to affected area three times a day as needed for itching/rash. FOR EXTERNAL USE ONLY APPLY TO: BACK 02/05/2024 Yes sodium hypochlorite (DAKIN'S QUARTER STRENGTH) 0.125 % soln Irrigate 1 mL as instructed two times a day. FOR EXTERNAL USE ONLY APPLY TO: Sacrum wound with the dressing change 02/05/2024 Yes furosemide (LASIX) 40 mg tablet Take 1 tablet by mouth every Tuesday and Tuesday. 02/05/2024 Yes acetaminophen (TYLENOL) 500 mg tablet 2 tablets by ORAL/FEEDING TUBE route every 6 hours as needed for pain or fever (specify) (mild pain). 02/06/2024 at 0600 Yes albuterol (PROVENTIL) 2.5 mg /3 mL (0.083 %) nebulizer solution Use 3 mL via nebulizer every 6 hours as needed for wheezing/shortness of breath. 02/05/2024 Yes aspirin 81 mg chewable tablet 1 tablet by ORAL/FEEDING TUBE route once daily. 02/05/2024 Yes methocarbamol 1,000 mg tablet Take 1 tablet by mouth three times a day as needed (muscle spasms). 02/06/2024 Yes ondansetron, PF, (ZOFRAN) 4 mg/2 mL soln Inject 4 mg intravenously every 6 hours as needed for nausea/vomiting. 02/05/[address] (PROTONIX) 40 mg tablet Take 1 tablet by mouth daily at 6 am. 02/05/2024 Yes rivaroxaban (XARELTO) 20 mg tablet Take 1 tablet by mouth daily with dinner. Yes senna (SENOKOT) 8.6 mg tab Take 1 tablet by mouth two times a day. 02/05/2024 Yes triamcinolone acetonide (KENALOG) 0.1 % cream Apply to affected area three times a day as needed. 02/05/2024 Yes apixaban (ELIQUIS) 5 mg tab(s) Take 5 mg by mouth two times a day. 02/01/2024 gabapentin (NEURONTIN) 100 mg capsule Take 1 capsule by mouth every 8 hours for 30 days. insulin glargine 100 unit/mL (3 mL) Inject 20 Units subcutaneously every morning. at 0600 morphine SR (MS CONTIN) 15 mg 12 hr tablet Take 1 tablet by mouth every 12 hours for 7 days. insulin needles, DISPOSABLE, (BD INSULIN PEN NEEDLE UF) 31 gauge x 5/16 1 Each four times daily. alcohol swabs Apply 1 application to affected area four times daily. acetylcysteine (MUCOMYST) 200 mg/mL (20 %) solution Inhale 1 mL as instructed every 6 hours as needed (secretions). insulin lispro 100 unit/mL injection Inject 0-5 Units subcutaneously with meals and at bedtime. Scale 1 If Blood Glucose (mg/dL) is: Less than 110 Give 0 units 111-150 Give 0 units 151-200 Give 1 unit 201-250 Give 2 units 251-300 Give 3 units 301-350 Give 4 units 351-400 Give 5 units Greater than 400 Give 5 units and Notify Provider Notify provider if 2 consecutive blood glucose values in the previous 24 hours are greater than 250 mg/dL and there have been no changes to the insulin regimen in the previous 24 hours. methyl salicylate 30% - menthol 10% (ICY HOT) 30-10 % cream Apply to affected area three times a day as needed (upper back back). miconazole 2 % powder Apply 1 application to affected area two times a day. orphenadrine (NORFLEX) 30 mg/mL injection Inject 1 mL intravenously every 12 hours. Unknown polyethylene glycol 3350 17 gram packet 1 Packet by ORAL/FEEDING TUBE route once daily. Dissolve dose in 4 - 8 ounces of liquid and take as directed. sodium chloride 0.65 % nasal spray Use 2 Sprays in each nostril as needed. naloxone 4 mg/actuation nasal (more content not included)... [facility] IR SUPRAPUBIC TUBE PLACEMENT on 02-06-2024 IR SUPRAPUBIC TUBE PLACEMENT * * *Final Report* * * DATE OF EXAM: Feb 06 2024 10:30AM [facility] 5612 - IR SUPRAPUBIC TUBE PLACEMENT / PROCEDURE REASON: multiple diagnoses * * * * Physician Interpretation * * * * PROCEDURE: SUPRAPUBIC CATHETER PLACEMENT Procedural Personnel Attending physician(s): Amy Krause M.D. Fellow physician(s): None Resident physician(s): None Advanced practice provider(s): None Medical Student(s): None Pre-procedure diagnosis: Chronic urinary retention with dependence on a Bartlett catheter Post-procedure diagnosis: Same Indication: Bladder dysfunction Additional clinical history: None PROCEDURE SUMMARY - Ultrasound and fluoroscopy-guided placement of suprapubic bladder catheter - Additional procedure(s): None PROCEDURE DETAILS: Pre-procedure Consent: Risks, benefits, treatment options, potential complications and personnel to be involved were discussed (including the risks of radiation exposure, contrast and anesthesia administration, and any equipment needed for the procedure to ensure best possible outcome) with the patient and all questions were answered and consent was obtained prior to procedure. Premedicated for contrast allergy: n/a Transfusion of blood products: No Medication reconciliation: The patient's medications and allergies were reviewed in the electronic medical record and reconciled to the proposed procedure/treatment. Trish-procedure discussion: The appropriate elements of the pre-procedure discussion, safety check list and sign-out were performed. Time out: A time out was performed immediately prior to procedure start with the nursing and interventional team, correctly identifying the name, date of , procedure, anatomy (including marking of site and side if applicable), patient position, procedure consent form, relevant diagnostic and radiology test results, antibiotic administration if applicable, safety precautions, and procedure-specific equipment needs. Start of procedure: 1015 End of procedure: 1030 Patient position: Supine Preparation: The site was prepared and draped using all elements of maximal sterile barrier technique including sterile gloves, sterile gown, cap, mask, large sterile sheet, sterile ultrasound probe cover, hand hygiene and cutaneous antisepsis. Antibiotics: None Antibiotic infusion start time: N/A Prophylactic antibiotic administered: None Additional med: None Additional med: None Contrast Contrast agent: OMNIPAQUE 300 Contrast volume (mL): 30 Image Guidance: Fluoroscopic and sonographic guidance with digital image storage Radiation Dose FLUOROSCOPIC RADIATION SUMMARY: Plane A, Air Kerma: 38.2 mGy Dose Area Product (DAP): 13.0 Gy-cm2 Fluoro Time: 2:03 min:sec Radiation dose exceed 5 Gy: No If radiation dose exceeded 5 Gy, was counseling and instructional brochure provided: N/A Anesthesia/sedation Level of anesthesia/sedation: Moderate sedation (conscious sedation) Anesthesia/sedation administered by: Independent trained observer under attending supervision with continuous monitoring of the patient?s level of consciousness and physiologic status Total intra-service sedation time (minutes): 16 Local anesthesia: 1 % lidocaine Suprapubic catheter placement Local anesthesia was administered. The bladder was filled via an indwelling bladder catheter. Using imaging guidance as specified in the procedure summary, a needle was advanced into the bladder, and a wire was placed. Balloon dilation was performed, and a suprapubic catheter was placed into the bladder through a peel away sheath. Suprapubic catheter placed: 18 F [place] tip Bartlett Findings: Internal catheter securement: Balloon with 10 cc sterile water External catheter securement: Non-absorbable suture Additional Details Additional description of procedure: None Equipment details: None Number and Type of Removed Specimens: 0: N/A Estimated blood loss (mL): Less than 10 Standardized report: [id number] Complications There were no immediate complications and no other complications. Conclusion The patient was comfortable and was transferred to the recovery room in stable condition. The procedure was performed by the: attending radiologist, without an school bus driver/teacher assistant. The attending radiologist performed the following procedural activities: Entire procedure IMPRESSION: IMAGE-GUIDED 18 MONEGASQUE SUPRAPUBIC CATHETER PLACEMENT. Plan: Catheter may be allowed to drain passively into bag until next catheter exchange. Catheter exchange by experienced clinician after 8 weeks as needed. Attestation Signer name: Amy Krause MD I attest that I was present for the entire procedure. I reviewed the stored images and agree with the report as written. Personal Injury Litigation Paralegal: PSCB Transcribe Date/Time: Feb 06 2024 12:26P Dictated by : AMY MOYA (more content not included)... Normal [facility] PT panel Coag (PPP)on 2023 INR Coag (PPP) [Relative time] 1.0 {INR} Normal 0.9-1.3 [facility] Comment on above: Order Comment: Doroteo zavala Type: BLOOD SPECIMEN Ordering Facility: [facility] Address: [address] [place] [address] Result Comment: Daylin min K Antagonist (VKA) Therapeutic Range: INR 2 to 3 (Target INR of 2.5) Note: For patients treated with VKA drugs, such as warfarin, the [employer] 2012 Guideline recommends a therapeutic INR range of 2 to 3 (target INR of 2.5). This recommendation includes high-risk patients with antiphospholipid syndrome with previous arterial or venous thromboembolism, current-generation mechanical or bioprosthetic aortic heart valve replacement. Note: Patients with mechanical aortic valve replacement and additional risk factors for thromboembolic events (atrial fibrillation, previous thromboembolism, LV dysfunction, hypercoagulable conditions) or an older generation mechanical AVR (i.e., ball in-Cage) or any mechanical MVR should have a INR therapeutic range of 2.5 to 3.5 (target INR of 3). Kristian GH, et al. Chest 2012, 141:7S-47S Oscar RA, et al. JACC 2017, 70: 252-289 Performed By: #### 3 4528-0 #### [facility] CLIA [id number] [address] [place] [id number] [place] [address] [place] Coag (PPP) [Time] 11.0 s Normal 9.7-13.0 [facility] Comment on above: Order Comment: Doroteo zavala Type: BLOOD SPECIMEN Ordering Facility: [facility] Address: [address], [place] [address] Performed By: #### 3 4528-0 #### [facility] [place] [id number] [address] [place] [address] [facility] CNPAlyssa [facility] MELISSA ELIAS ([id number]) 1965 M Date Time Provider Department 02/02/24 TIANNA LYLE During your visit today, we recorded the following information about you: Tianna Lyle RN 02/02/2024 3:09 PM Signed Scheduling desk received call back and VM from facility. Attempt to return call but did not get ahold of anyone. LVM at following numbers: Sujey [phone] Sadia [phone] [facility] Nurse [phone] Allergies As of Date: 02/02/2024 (No Known Allergies) Date Reviewed: 01/05/2024 Reviewed by: Maria C Hernandez MD, MD - Fully Assessed Reason for Visit: Appointment [186] Prescriptions as of 06/29/2024 - apixaban (ELIQUIS) 5 mg tab(s) Take 5 mg by mouth two times a day. - melatonin 3 mg capsules Take 3 mg by mouth daily at bedtime. - oxyCODONE IR (ROXICODONE) 10 mg tab Take 10 mg by mouth as needed for pain. - amLODIPine (NORVASC) 10 mg tablet Take 10 mg by mouth once daily. - carvedilol (COREG) 12.5 mg tablet Take 12.5 mg by mouth two times a day with meals. - loratadine (CLARITIN) 10 mg tablet Take 10 mg by mouth once daily. - metFORMIN (GLUCOPHAGE) 500 mg tablet Take 500 mg by mouth daily with breakfast. - cephALEXin (KEFLEX) 500 mg capsule Take 500 mg by mouth four times daily. - guaiFENesin (MUCINEX) 600 mg 12 hr tablet Take 1 tablet by mouth two times a day as needed (congestion). - gabapentin (NEURONTIN) 100 mg capsule Take 1 capsule by mouth every 8 hours for 30 days. - diphenhydrAMINE-Zinc Acetate (BENADRYL) cream Apply to affected area three times a day as needed for itching/rash. FOR EXTERNAL USE ONLY APPLY TO: BACK - sodium hypochlorite (DAKIN'S QUARTER STRENGTH) 0.125 % soln Irrigate 1 mL as instructed two times a day. FOR EXTERNAL USE ONLY APPLY TO: Sacrum wound with the dressing change - insulin glargine 100 unit/mL (3 mL) Inject 20 Units subcutaneously every morning. - furosemide (LASIX) 40 mg tablet Take 1 tablet by mouth every Tuesday and Tuesday. - morphine SR (MS CONTIN) 15 mg 12 hr tablet Take 1 tablet by mouth every 12 hours for 7 days. - insulin needles, DISPOSABLE, (BD INSULIN PEN NEEDLE UF) 31 gauge x 5/16 1 Each four times daily. - alcohol swabs Apply 1 application to affected area four times daily. - acetaminophen (TYLENOL) 500 mg tablet 2 tablets by ORAL/FEEDING TUBE route every 6 hours as needed for pain or fever (specify) (mild pain). - acetylcysteine (MUCOMYST) 200 mg/mL (20 %) solution Inhale 1 mL as instructed every 6 hours as needed (secretions). - albuterol (PROVENTIL) 2.5 mg /3 mL (0.083 %) nebulizer solution Use 3 mL via nebulizer every 6 hours as needed for wheezing/shortness of breath. - aspirin 81 mg chewable tablet 1 tablet by ORAL/FEEDING TUBE route once daily. - insulin lispro 100 unit/mL injection Inject 0-5 Units subcutaneously with meals and at bedtime. Scale 1 If Blood Glucose (mg/dL) is: Less than 110 Give 0 units 111-150 Give 0 units 151-200 Give 1 unit 201-250 Give 2 units 251-300 Give 3 units 301-350 Give 4 units 351-400 Give 5 units Greater than 400 Give 5 units and Notify Provider Notify provider if 2 consecutive blood glucose values in the previous 24 hours are greater than 250 mg/dL and there have been no changes to the insulin regimen in the previous 24 hours. - methocarbamol 1,000 mg tablet Take 1 tablet by mouth three times a day as needed (muscle spasms). - methyl salicylate 30% - menthol 10% (ICY HOT) 30-10 % cream Apply to affected area three times a day as needed (upper back back). - miconazole 2 % powder Apply 1 application to affected area two times a day. - ondansetron, PF, (ZOFRAN) 4 mg/2 mL soln Inject 4 mg intravenously every 6 hours as needed for nausea/vomiting. - orphenadrine (NORFLEX) 30 mg/mL injection Inject 1 mL intravenously every 12 hours. - pantoprazole DR (PROTONIX) 40 mg tablet Take 1 tablet by mouth daily at 6 am. - polyethylene glycol 3350 17 gram packet 1 Packet by ORAL/FEEDING TUBE route once daily. Dissolve dose in 4 - 8 ounces of liquid and take as directed. - rivaroxaban (XARELTO) 20 mg tablet Take 1 tablet by mouth daily with dinner. - senna (SENOKOT) 8.6 mg tab Take 1 tablet by mouth two times a day. - sodium chloride 0.65 % nasal spray Use 2 Sprays in each nostril as needed. - triamcinolone acetonide (KENALOG) 0.1 % cream Apply to affected area three times a day as needed. - naloxone 4 mg/actuation nasal spray (NARCAN) Use 1 spray in one nostril as needed for overdose. May repeat every 2 to 3 min in alternating nostrils until medical assistance is available - Miscellaneous Medical Supply 1 Each once daily. Kelli Lift Problem List As Of Date 02/02/2024 Noted Resolved Spondylolisthesis, lumbar region [M43.16] 05/21/2016 Osteomyelitis of lumbar spine (HCC) [M46.26] 02/16/2017 Thrombosis of renal brenda (more content not included)... [facility] ----- MELISSA ELIAS ([id number]) 1965 M Date Time Provider Department 02/01/24 ANIA WALTON During your visit today, we recorded the following information about you: Allergies As of Date: 02/01/2024 (No Known Allergies) Date Reviewed: 01/05/2024 Reviewed by: Maria C Hernandez MD, MD - Fully Assessed Reason for Visit: Radiology Pre Procedure Instructions [1506] Cmt: Suprapubic catheter placement Prescriptions as of 02/08/2024 - apixaban (ELIQUIS) 5 mg tab(s) Take 5 mg by mouth two times a day. - melatonin 3 mg capsules Take 3 mg by mouth daily at bedtime. - oxyCODONE IR (ROXICODONE) 10 mg tab Take 10 mg by mouth as needed for pain. - amLODIPine (NORVASC) 10 mg tablet Take 10 mg by mouth once daily. - carvedilol (COREG) 12.5 mg tablet Take 12.5 mg by mouth two times a day with meals. - loratadine (CLARITIN) 10 mg tablet Take 10 mg by mouth once daily. - metFORMIN (GLUCOPHAGE) 500 mg tablet Take 500 mg by mouth daily with breakfast. - cephALEXin (KEFLEX) 500 mg capsule Take 500 mg by mouth four times daily. - guaiFENesin (MUCINEX) 600 mg 12 hr tablet Take 1 tablet by mouth two times a day as needed (congestion). - gabapentin (NEURONTIN) 100 mg capsule Take 1 capsule by mouth every 8 hours for 30 days. - diphenhydrAMINE-Zinc Acetate (BENADRYL) cream Apply to affected area three times a day as needed for itching/rash. FOR EXTERNAL USE ONLY APPLY TO: BACK - sodium hypochlorite (DAKIN'S QUARTER STRENGTH) 0.125 % soln Irrigate 1 mL as instructed two times a day. FOR EXTERNAL USE ONLY APPLY TO: Sacrum wound with the dressing change - insulin glargine 100 unit/mL (3 mL) Inject 20 Units subcutaneously every morning. - furosemide (LASIX) 40 mg tablet Take 1 tablet by mouth every Tuesday and Tuesday. - morphine SR (MS CONTIN) 15 mg 12 hr tablet Take 1 tablet by mouth every 12 hours for 7 days. - insulin needles, DISPOSABLE, (BD INSULIN PEN NEEDLE UF) 31 gauge x 5/16 1 Each four times daily. - alcohol swabs Apply 1 application to affected area four times daily. - acetaminophen (TYLENOL) 500 mg tablet 2 tablets by ORAL/FEEDING TUBE route every 6 hours as needed for pain or fever (specify) (mild pain). - acetylcysteine (MUCOMYST) 200 mg/mL (20 %) solution Inhale 1 mL as instructed every 6 hours as needed (secretions). - albuterol (PROVENTIL) 2.5 mg /3 mL (0.083 %) nebulizer solution Use 3 mL via nebulizer every 6 hours as needed for wheezing/shortness of breath. - aspirin 81 mg chewable tablet 1 tablet by ORAL/FEEDING TUBE route once daily. - insulin lispro 100 unit/mL injection Inject 0-5 Units subcutaneously with meals and at bedtime. Scale 1 If Blood Glucose (mg/dL) is: Less than 110 Give 0 units 111-150 Give 0 units 151-200 Give 1 unit 201-250 Give 2 units 251-300 Give 3 units 301-350 Give 4 units 351-400 Give 5 units Greater than 400 Give 5 units and Notify Provider Notify provider if 2 consecutive blood glucose values in the previous 24 hours are greater than 250 mg/dL and there have been no changes to the insulin regimen in the previous 24 hours. - methocarbamol 1,000 mg tablet Take 1 tablet by mouth three times a day as needed (muscle spasms). - methyl salicylate 30% - menthol 10% (ICY HOT) 30-10 % cream Apply to affected area three times a day as needed (upper back back). - miconazole 2 % powder Apply 1 application to affected area two times a day. - ondansetron, PF, (ZOFRAN) 4 mg/2 mL soln Inject 4 mg intravenously every 6 hours as needed for nausea/vomiting. - orphenadrine (NORFLEX) 30 mg/mL injection Inject 1 mL intravenously every 12 hours. - pantoprazole DR (PROTONIX) 40 mg tablet Take 1 tablet by mouth daily at 6 am. - polyethylene glycol 3350 17 gram packet 1 Packet by ORAL/FEEDING TUBE route once daily. Dissolve dose in 4 - 8 ounces of liquid and take as directed. - rivaroxaban (XARELTO) 20 mg tablet Take 1 tablet by mouth daily with dinner. - senna (SENOKOT) 8.6 mg tab Take 1 tablet by mouth two times a day. - sodium chloride 0.65 % nasal spray Use 2 Sprays in each nostril as needed. - triamcinolone acetonide (KENALOG) 0.1 % cream Apply to affected area three times a day as needed. - naloxone 4 mg/actuation nasal spray (NARCAN) Use 1 spray in one nostril as needed for overdose. May repeat every 2 to 3 min in alternating nostrils until medical assistance is available - [employer] 1 Each once daily. Kelli Lift Problem List As Of Date 02/01/2024 Noted Resolved Spondylolisthesis, lumbar region [M43.16] 05/21/2016 Osteomyelitis of lumbar spine (HCC) [M46.26] 02/16/2017 Thrombosis of renal dialysis arteriovenous naima*02/16/2017 Obesity, Class III, BMI >= 40 (morbid obesity) *02/21/2017 Paralysis (HCC) [G83.9] 11/17/2022 Hypertension [I10] 11/17/2022 Controlled type 2 diabetes mellitus wi (more content not included)... Normal [facility] Urine Cultureon 01-30-2024 URC Normal [facility] Comment on above: Performed By: #### M 100.2200, L400.0001 ####[facility] [address] [facility] [place], [address] Urinalysis, Completeon 01-27 TRIPLE PHOS 1+ /hpf Normal [facility] Comment on above: Order Comment: Urine , Random Performed By: #### M 100.2200, L400.0001 ####[facility] [address] [place], [address] RBC 5-10 SEEN Normal 0-5 [facility] Comment on above: Order Comment: Urine , Random Performed By: #### M 100.2200, L400.0001 ####[facility] [address] [place], [address] BACTERIA 2+ /hpf Normal None Seen [facility] Comment on above: Order Comment: Urine , Random Performed By: #### M 100.2200, L400.0001 ####[facility] [address] [place], [address] WBC 25-50 SEEN Normal 0-5 [facility] Comment on above: Order Comment: Urine , Random Performed By: #### M 100.2200, L400.0001 ####[facility] [address] [place], [address] EPI,SQUAMOUS 0 SEEN Normal 0-5 [facility] Comment on above: Order Comment: Urine , Random Performed By: #### M 100.2200, L400.0001 ####[facility] [address] [place], [address] Mucus Ql (Urine sed) 0 SEEN Normal [facility] Comment on above: Order Comment: Urine , Random Performed By: #### M 100.2200, L400.0001 ####[facility] [address] [place], [address] CNPNon 01-05-2024 [facility] Telephone ([place]) ----- MELISSA ELIAS ([id number]) 1965 M Date Time Provider Department 01/05/24 NAI HEARD [place] During your visit today, we recorded the following information about you: Nai Heard 01/05/2024 1:10 PM Signed Pt was scheduled 01/04 at [facility] for SPT placement. Facility where pt stays did not hold Eliquis. Called and left to get pt rescheduled. Allergies As of Date: 01/05/2024 (No Known Allergies) Date Reviewed: 01/05/2024 Reviewed by: Maria C Hernandez MD, MD - Fully Assessed Reason for Visit: Scheduling [3921] Cmt: SPT Reschedule Prescriptions as of 04/13/2024 - apixaban (ELIQUIS) 5 mg tab(s) Take 5 mg by mouth two times a day. - melatonin 3 mg capsules Take 3 mg by mouth daily at bedtime. - oxyCODONE IR (ROXICODONE) 10 mg tab Take 10 mg by mouth as needed for pain. - amLODIPine (NORVASC) 10 mg tablet Take 10 mg by mouth once daily. - carvedilol (COREG) 12.5 mg tablet Take 12.5 mg by mouth two times a day with meals. - loratadine (CLARITIN) 10 mg tablet Take 10 mg by mouth once daily. - metFORMIN (GLUCOPHAGE) 500 mg tablet Take 500 mg by mouth daily with breakfast. - cephALEXin (KEFLEX) 500 mg capsule Take 500 mg by mouth four times daily. - guaiFENesin (MUCINEX) 600 mg 12 hr tablet Take 1 tablet by mouth two times a day as needed (congestion). - gabapentin (NEURONTIN) 100 mg capsule Take 1 capsule by mouth every 8 hours for 30 days. - diphenhydrAMINE-Zinc Acetate (BENADRYL) cream Apply to affected area three times a day as needed for itching/rash. FOR EXTERNAL USE ONLY APPLY TO: BACK - sodium hypochlorite (DAKIN'S QUARTER STRENGTH) 0.125 % soln Irrigate 1 mL as instructed two times a day. FOR EXTERNAL USE ONLY APPLY TO: Sacrum wound with the dressing change - insulin glargine 100 unit/mL (3 mL) Inject 20 Units subcutaneously every morning. - furosemide (LASIX) 40 mg tablet Take 1 tablet by mouth every Tuesday and Tuesday. - morphine SR (MS CONTIN) 15 mg 12 hr tablet Take 1 tablet by mouth every 12 hours for 7 days. - insulin needles, DISPOSABLE, (BD INSULIN PEN NEEDLE UF) 31 gauge x 5/16 1 Each four times daily. - alcohol swabs Apply 1 application to affected area four times daily. - acetaminophen (TYLENOL) 500 mg tablet 2 tablets by ORAL/FEEDING TUBE route every 6 hours as needed for pain or fever (specify) (mild pain). - acetylcysteine (MUCOMYST) 200 mg/mL (20 %) solution Inhale 1 mL as instructed every 6 hours as needed (secretions). - albuterol (PROVENTIL) 2.5 mg /3 mL (0.083 %) nebulizer solution Use 3 mL via nebulizer every 6 hours as needed for wheezing/shortness of breath. - aspirin 81 mg chewable tablet 1 tablet by ORAL/FEEDING TUBE route once daily. - insulin lispro 100 unit/mL injection Inject 0-5 Units subcutaneously with meals and at bedtime. Scale 1 If Blood Glucose (mg/dL) is: Less than 110 Give 0 units 111-150 Give 0 units 151-200 Give 1 unit 201-250 Give 2 units 251-300 Give 3 units 301-350 Give 4 units 351-400 Give 5 units Greater than 400 Give 5 units and Notify Provider Notify provider if 2 consecutive blood glucose values in the previous 24 hours are greater than 250 mg/dL and there have been no changes to the insulin regimen in the previous 24 hours. - methocarbamol 1,000 mg tablet Take 1 tablet by mouth three times a day as needed (muscle spasms). - methyl salicylate 30% - menthol 10% (ICY HOT) 30-10 % cream Apply to affected area three times a day as needed (upper back back). - miconazole 2 % powder Apply 1 application to affected area two times a day. - ondansetron, PF, (ZOFRAN) 4 mg/2 mL soln Inject 4 mg intravenously every 6 hours as needed for nausea/vomiting. - orphenadrine (NORFLEX) 30 mg/mL injection Inject 1 mL intravenously every 12 hours. - pantoprazole DR (PROTONIX) 40 mg tablet Take 1 tablet by mouth daily at 6 am. - polyethylene glycol 3350 17 gram packet 1 Packet by ORAL/FEEDING TUBE route once daily. Dissolve dose in 4 - 8 ounces of liquid and take as directed. - rivaroxaban (XARELTO) 20 mg tablet Take 1 tablet by mouth daily with dinner. - senna (SENOKOT) 8.6 mg tab Take 1 tablet by mouth two times a day. - sodium chloride 0.65 % nasal spray Use 2 Sprays in each nostril as needed. - triamcinolone acetonide (KENALOG) 0.1 % cream Apply to affected area three times a day as needed. - naloxone 4 mg/actuation nasal spray (NARCAN) Use 1 spray in one nostril as needed for overdose. May repeat every 2 to 3 min in alternating nostrils until medical assistance is available - Miscellaneous Medical Supply 1 Each once daily. 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 [facility] 12-28-2023 CNPN Telephone ([place]) ----- MELISSA ELIAS ([id number]) 1965 M Date Time Provider Department 12/28/23 ANTONIO GABRIEL During your visit today, we recorded the following information about you: Allergies As of Date: 12/28/2023 (No Known Allergies) Date Reviewed: 12/01/2023 Reviewed by: Yaneli Sarkar, RN - Fully Assessed Prescriptions as of 12/28/2023 - guaiFENesin (MUCINEX) 600 mg 12 hr tablet Take 1 tablet by mouth two times a day as needed (congestion). - gabapentin (NEURONTIN) 100 mg capsule Take 1 capsule by mouth every 8 hours for 30 days. - diphenhydrAMINE-Zinc Acetate (BENADRYL) cream Apply to affected area three times a day as needed for itching/rash. FOR EXTERNAL USE ONLY APPLY TO: BACK - sodium hypochlorite (DAKIN'S QUARTER STRENGTH) 0.125 % soln Irrigate 1 mL as instructed two times a day. FOR EXTERNAL USE ONLY APPLY TO: Sacrum wound with the dressing change - insulin glargine 100 unit/mL (3 mL) Inject 20 Units subcutaneously every morning. - furosemide (LASIX) 40 mg tablet Take 1 tablet by mouth every Tuesday and Tuesday. - morphine SR (MS CONTIN) 15 mg 12 hr tablet Take 1 tablet by mouth every 12 hours for 7 days. - insulin needles, DISPOSABLE, (BD INSULIN PEN NEEDLE UF) 31 gauge x 5/16 1 Each four times daily. - alcohol swabs Apply 1 application to affected area four times daily. - acetaminophen (TYLENOL) 500 mg tablet 2 tablets by ORAL/FEEDING TUBE route every 6 hours as needed for pain or fever (specify) (mild pain). - acetylcysteine (MUCOMYST) 200 mg/mL (20 %) solution Inhale 1 mL as instructed every 6 hours as needed (secretions). - albuterol (PROVENTIL) 2.5 mg /3 mL (0.083 %) nebulizer solution Use 3 mL via nebulizer every 6 hours as needed for wheezing/shortness of breath. - aspirin 81 mg chewable tablet 1 tablet by ORAL/FEEDING TUBE route once daily. - insulin lispro 100 unit/mL injection Inject 0-5 Units subcutaneously with meals and at bedtime. Scale 1 If Blood Glucose (mg/dL) is: Less than 110 Give 0 units 111-150 Give 0 units 151-200 Give 1 unit 201-250 Give 2 units 251-300 Give 3 units 301-350 Give 4 units 351-400 Give 5 units Greater than 400 Give 5 units and Notify Provider Notify provider if 2 consecutive blood glucose values in the previous 24 hours are greater than 250 mg/dL and there have been no changes to the insulin regimen in the previous 24 hours. - methocarbamol 1,000 mg tablet Take 1 tablet by mouth three times a day as needed (muscle spasms). - methyl salicylate 30% - menthol 10% (ICY HOT) 30-10 % cream Apply to affected area three times a day as needed (upper back back). - miconazole 2 % powder Apply 1 application to affected area two times a day. - ondansetron, PF, (ZOFRAN) 4 mg/2 mL soln Inject 4 mg intravenously every 6 hours as needed for nausea/vomiting. - orphenadrine (NORFLEX) 30 mg/mL injection Inject 1 mL intravenously every 12 hours. - pantoprazole DR (PROTONIX) 40 mg tablet Take 1 tablet by mouth daily at 6 am. - polyethylene glycol 3350 17 gram packet 1 Packet by ORAL/FEEDING TUBE route once daily. Dissolve dose in 4 - 8 ounces of liquid and take as directed. - rivaroxaban (XARELTO) 20 mg tablet Take 1 tablet by mouth daily with dinner. - senna (SENOKOT) 8.6 mg tab Take 1 tablet by mouth two times a day. - sodium chloride 0.65 % nasal spray Use 2 Sprays in each nostril as needed. - triamcinolone acetonide (KENALOG) 0.1 % cream Apply to affected area three times a day as needed. - naloxone 4 mg/actuation nasal spray (NARCAN) Use 1 spray in one nostril as needed for overdose. May repeat every 2 to 3 min in alternating nostrils until medical assistance is available - [employer] 1 Each once daily. 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/16/2017 Obesity, Class III, BMI >= 40 (morbid obesity) *02/21/2017 Paralysis (HCC) [G83.9] 11/17/2022 Hypertension [I10] 11/17/2022 Controlled type 2 diabetes mellitus without com*11/17/2022 Cellulitis [L03.90] 11/17/2022 03/08/2023 MSSA (methicillin-susceptible Staph aureus) car*11/18/2022 Spinal stenosis [M48.00] 11/18/2022 Traumatic edema of thoracic spinal cord (HCC) [*11/18/2022 Bacteremia [R78.81] 11/18/2022 Acute respiratory failure with hypoxia and hype*11/26/2022 HAP (hospital-acquired pneumonia) [J18.9, Y95] 11/27/2022 Anticoagulation management encounter [Z51.81, Z*11/29/2022 BATOOL (obstructive sleep apnea) [G47.33] 11/29/2022 Venous stasis ulcer of left lower extremity (HC*12/02/2022 Venous stasis ulcer of right lower extremity (H*12/02/2022 Intertriginous dermatitis associated with moist*12/02/2022 Dry skin [L85.3] 12/02/2022 Pleural effusion [J90] (more content not included)... Normal [facility] CNNURSEon 12-01-2023 CNNURSE Nurse Visit (UROLMD) ----- MELISSA ELIAS ([id number]) 1965 M Date Time Provider Department 12/01/23 9:00 AM NURSE GUILLERMINA STRINGER SARABJIT During your visit today, we recorded the following information about you: Yaneli Sarkar, KATHRYN 12/01/2023 9:25 AM Signed Patient's bartlett removed with all water removed from Balloon. Tolerated procedure well. New 24 sao tomean indwelling bartlett catheter Straight tip inserted using aspetic technique by Boaz Alston RN. I assisted with helping with change. Patient tolerated procedure well. Clear yellow urine returning confirming placement. Bartlett bag emptying and catheter care and teaching done. Patient verbalizes understanding. Irrigated out with 300 cc sterile water, no clots or blood noted. Clear return. When bartlett removed the 26 sao tomean had 100 cc in Balloon holding into bladder. Put in 20 cc into current balloon. Ready to be set up with IR for SPT placement. Allergies As of Date: 12/01/2023 (No Known Allergies) Date Reviewed: 12/01/2023 Reviewed by: Yaneli Sarkar, KATHRYN - Fully Assessed Reason for Visit: Nurse Visit [792] Primary Visit Diagnosis:Chronic indwelling Bartlett catheter [Z97.8] Prescriptions as of 12/01/2023 - guaiFENesin (MUCINEX) 600 mg 12 hr tablet Take 1 tablet by mouth two times a day as needed (congestion). - gabapentin (NEURONTIN) 100 mg capsule Take 1 capsule by mouth every 8 hours for 30 days. - diphenhydrAMINE-Zinc Acetate (BENADRYL) cream Apply to affected area three times a day as needed for itching/rash. FOR EXTERNAL USE ONLY APPLY TO: BACK - sodium hypochlorite (DAKIN'S QUARTER STRENGTH) 0.125 % soln Irrigate 1 mL as instructed two times a day. FOR EXTERNAL USE ONLY APPLY TO: Sacrum wound with the dressing change - insulin glargine 100 unit/mL (3 mL) Inject 20 Units subcutaneously every morning. - furosemide (LASIX) 40 mg tablet Take 1 tablet by mouth every Tuesday and Tuesday. - morphine SR (MS CONTIN) 15 mg 12 hr tablet Take 1 tablet by mouth every 12 hours for 7 days. - insulin needles, DISPOSABLE, (BD INSULIN PEN NEEDLE UF) 31 gauge x 5/16 1 Each four times daily. - alcohol swabs Apply 1 application to affected area four times daily. - acetaminophen (TYLENOL) 500 mg tablet 2 tablets by ORAL/FEEDING TUBE route every 6 hours as needed for pain or fever (specify) (mild pain). - acetylcysteine (MUCOMYST) 200 mg/mL (20 %) solution Inhale 1 mL as instructed every 6 hours as needed (secretions). - albuterol (PROVENTIL) 2.5 mg /3 mL (0.083 %) nebulizer solution Use 3 mL via nebulizer every 6 hours as needed for wheezing/shortness of breath. - aspirin 81 mg chewable tablet 1 tablet by ORAL/FEEDING TUBE route once daily. - insulin lispro 100 unit/mL injection Inject 0-5 Units subcutaneously with meals and at bedtime. Scale 1 If Blood Glucose (mg/dL) is: Less than 110 Give 0 units 111-150 Give 0 units 151-200 Give 1 unit 201-250 Give 2 units 251-300 Give 3 units 301-350 Give 4 units 351-400 Give 5 units Greater than 400 Give 5 units and Notify Provider Notify provider if 2 consecutive blood glucose values in the previous 24 hours are greater than 250 mg/dL and there have been no changes to the insulin regimen in the previous 24 hours. - methocarbamol 1,000 mg tablet Take 1 tablet by mouth three times a day as needed (muscle spasms). - methyl salicylate 30% - menthol 10% (ICY HOT) 30-10 % cream Apply to affected area three times a day as needed (upper back back). - miconazole 2 % powder Apply 1 application to affected area two times a day. - ondansetron, PF, (ZOFRAN) 4 mg/2 mL soln Inject 4 mg intravenously every 6 hours as needed for nausea/vomiting. - orphenadrine (NORFLEX) 30 mg/mL injection Inject 1 mL intravenously every 12 hours. - pantoprazole DR (PROTONIX) 40 mg tablet Take 1 tablet by mouth daily at 6 am. - polyethylene glycol 3350 17 gram packet 1 Packet by ORAL/FEEDING TUBE route once daily. Dissolve dose in 4 - 8 ounces of liquid and take as directed. - rivaroxaban (XARELTO) 20 mg tablet Take 1 tablet by mouth daily with dinner. - senna (SENOKOT) 8.6 mg tab Take 1 tablet by mouth two times a day. - sodium chloride 0.65 % nasal spray Use 2 Sprays in each nostril as needed. - triamcinolone acetonide (KENALOG) 0.1 % cream Apply to affected area three times a day as needed. - naloxone 4 mg/actuation nasal spray (NARCAN) Use 1 spray in one nostril as needed for overdose. May repeat every 2 to 3 min in alternating nostrils until medical assistance is available - [employer] 1 Each once daily. 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 [facility] ----- MELISSA ELIAS ([id number]) 1965 M Date Time Provider Department 11/30/23 NAI HEARD During your visit today, we recorded the following information about you: Nai Heard 11/30/2023 10:00 AM Signed Left VM for Hamzah ([phone]) per pt request to schedule. Nai Heard 12/20/2023 10:17 AM Signed Hamzah returned my call and left VM. I called her call but there was no answer so I left another VM. Allergies As of Date: 11/30/2023 (No Known Allergies) Date Reviewed: 08/12/2023 Reviewed by: Michele Gonzalez RN - Fully Assessed Reason for Visit: Scheduling [3921] Cmt: SPT Placement Prescriptions as of 03/15/2024 - apixaban (ELIQUIS) 5 mg tab(s) Take 5 mg by mouth two times a day. - melatonin 3 mg capsules Take 3 mg by mouth daily at bedtime. - oxyCODONE IR (ROXICODONE) 10 mg tab Take 10 mg by mouth as needed for pain. - amLODIPine (NORVASC) 10 mg tablet Take 10 mg by mouth once daily. - carvedilol (COREG) 12.5 mg tablet Take 12.5 mg by mouth two times a day with meals. - loratadine (CLARITIN) 10 mg tablet Take 10 mg by mouth once daily. - metFORMIN (GLUCOPHAGE) 500 mg tablet Take 500 mg by mouth daily with breakfast. - cephALEXin (KEFLEX) 500 mg capsule Take 500 mg by mouth four times daily. - guaiFENesin (MUCINEX) 600 mg 12 hr tablet Take 1 tablet by mouth two times a day as needed (congestion). - gabapentin (NEURONTIN) 100 mg capsule Take 1 capsule by mouth every 8 hours for 30 days. - diphenhydrAMINE-Zinc Acetate (BENADRYL) cream Apply to affected area three times a day as needed for itching/rash. FOR EXTERNAL USE ONLY APPLY TO: BACK - sodium hypochlorite (DAKIN'S QUARTER STRENGTH) 0.125 % soln Irrigate 1 mL as instructed two times a day. FOR EXTERNAL USE ONLY APPLY TO: Sacrum wound with the dressing change - insulin glargine 100 unit/mL (3 mL) Inject 20 Units subcutaneously every morning. - furosemide (LASIX) 40 mg tablet Take 1 tablet by mouth every Tuesday and Tuesday. - morphine SR (MS CONTIN) 15 mg 12 hr tablet Take 1 tablet by mouth every 12 hours for 7 days. - insulin needles, DISPOSABLE, (BD INSULIN PEN NEEDLE UF) 31 gauge x 5/16 1 Each four times daily. - alcohol swabs Apply 1 application to affected area four times daily. - acetaminophen (TYLENOL) 500 mg tablet 2 tablets by ORAL/FEEDING TUBE route every 6 hours as needed for pain or fever (specify) (mild pain). - acetylcysteine (MUCOMYST) 200 mg/mL (20 %) solution Inhale 1 mL as instructed every 6 hours as needed (secretions). - albuterol (PROVENTIL) 2.5 mg /3 mL (0.083 %) nebulizer solution Use 3 mL via nebulizer every 6 hours as needed for wheezing/shortness of breath. - aspirin 81 mg chewable tablet 1 tablet by ORAL/FEEDING TUBE route once daily. - insulin lispro 100 unit/mL injection Inject 0-5 Units subcutaneously with meals and at bedtime. Scale 1 If Blood Glucose (mg/dL) is: Less than 110 Give 0 units 111-150 Give 0 units 151-200 Give 1 unit 201-250 Give 2 units 251-300 Give 3 units 301-350 Give 4 units 351-400 Give 5 units Greater than 400 Give 5 units and Notify Provider Notify provider if 2 consecutive blood glucose values in the previous 24 hours are greater than 250 mg/dL and there have been no changes to the insulin regimen in the previous 24 hours. - methocarbamol 1,000 mg tablet Take 1 tablet by mouth three times a day as needed (muscle spasms). - methyl salicylate 30% - menthol 10% (ICY HOT) 30-10 % cream Apply to affected area three times a day as needed (upper back back). - miconazole 2 % powder Apply 1 application to affected area two times a day. - ondansetron, PF, (ZOFRAN) 4 mg/2 mL soln Inject 4 mg intravenously every 6 hours as needed for nausea/vomiting. - orphenadrine (NORFLEX) 30 mg/mL injection Inject 1 mL intravenously every 12 hours. - pantoprazole DR (PROTONIX) 40 mg tablet Take 1 tablet by mouth daily at 6 am. - polyethylene glycol 3350 17 gram packet 1 Packet by ORAL/FEEDING TUBE route once daily. Dissolve dose in 4 - 8 ounces of liquid and take as directed. - rivaroxaban (XARELTO) 20 mg tablet Take 1 tablet by mouth daily with dinner. - senna (SENOKOT) 8.6 mg tab Take 1 tablet by mouth two times a day. - sodium chloride 0.65 % nasal spray Use 2 Sprays in each nostril as needed. - triamcinolone acetonide (KENALOG) 0.1 % cream Apply to affected area three times a day as needed. - naloxone 4 mg/actuation nasal spray (NARCAN) Use 1 spray in one nostril as needed for overdose. May repeat every 2 to 3 min in alternating nostrils until medical assistance is available - [employer] 1 Each once daily. Kelli Lift Problem List As Of Date 11/30/2023 Noted Resolved Spondylolisthesis, lumbar region [M43.16] 05/21/2016 Osteomyelitis of lumbar spine (HCC) [M46.26] 02/16/2017 Thrombosis (more content not included)... [facility] 11-28-2023 [facility] Telephone (UROLMD) ----- MELISSA ELIAS ([id number]) 1965 Date Time Provider Department 11/28/23 WILLEM GLASER UROADELFO During your visit today, we recorded the following information about you: Willem Glaser MD 11/28/2023 5:28 PM Signed Patient called, electing to proceed with suprapubic tube placement with interventional radiology. Order placed, will also arrange 1 month follow-up after placement for initial exchange. Willem Glaser MD Allergies As of Date: 11/28/2023 (No Known Allergies) Date Reviewed: 08/12/2023 Reviewed by: Michele Gonzalez, KATHRYN - Fully Assessed Primary Visit Diagnosis:Paraplegia (HCC) [G82.20] Other Visit Diagnosis:Urinary retention [R33.9] Order(s):IR SUPRAPUBIC TUBE PLACEMENT [[id number]] Order #: [id number] Prescriptions as of 11/28/2023 - guaiFENesin (MUCINEX) 600 mg 12 hr tablet Take 1 tablet by mouth two times a day as needed (congestion). - gabapentin (NEURONTIN) 100 mg capsule Take 1 capsule by mouth every 8 hours for 30 days. - diphenhydrAMINE-Zinc Acetate (BENADRYL) cream Apply to affected area three times a day as needed for itching/rash. FOR EXTERNAL USE ONLY APPLY TO: BACK - sodium hypochlorite (DAKIN'S QUARTER STRENGTH) 0.125 % soln Irrigate 1 mL as instructed two times a day. FOR EXTERNAL USE ONLY APPLY TO: Sacrum wound with the dressing change - insulin glargine 100 unit/mL (3 mL) Inject 20 Units subcutaneously every morning. - furosemide (LASIX) 40 mg tablet Take 1 tablet by mouth every Tuesday and Tuesday. - morphine SR (MS CONTIN) 15 mg 12 hr tablet Take 1 tablet by mouth every 12 hours for 7 days. - insulin needles, DISPOSABLE, (BD INSULIN PEN NEEDLE UF) 31 gauge x 5/16 1 Each four times daily. - alcohol swabs Apply 1 application to affected area four times daily. - acetaminophen (TYLENOL) 500 mg tablet 2 tablets by ORAL/FEEDING TUBE route every 6 hours as needed for pain or fever (specify) (mild pain). - acetylcysteine (MUCOMYST) 200 mg/mL (20 %) solution Inhale 1 mL as instructed every 6 hours as needed (secretions). - albuterol (PROVENTIL) 2.5 mg /3 mL (0.083 %) nebulizer solution Use 3 mL via nebulizer every 6 hours as needed for wheezing/shortness of breath. - aspirin 81 mg chewable tablet 1 tablet by ORAL/FEEDING TUBE route once daily. - insulin lispro 100 unit/mL injection Inject 0-5 Units subcutaneously with meals and at bedtime. Scale 1 If Blood Glucose (mg/dL) is: Less than 110 Give 0 units 111-150 Give 0 units 151-200 Give 1 unit 201-250 Give 2 units 251-300 Give 3 units 301-350 Give 4 units 351-400 Give 5 units Greater than 400 Give 5 units and Notify Provider Notify provider if 2 consecutive blood glucose values in the previous 24 hours are greater than 250 mg/dL and there have been no changes to the insulin regimen in the previous 24 hours. - methocarbamol 1,000 mg tablet Take 1 tablet by mouth three times a day as needed (muscle spasms). - methyl salicylate 30% - menthol 10% (ICY HOT) 30-10 % cream Apply to affected area three times a day as needed (upper back back). - miconazole 2 % powder Apply 1 application to affected area two times a day. - ondansetron, PF, (ZOFRAN) 4 mg/2 mL soln Inject 4 mg intravenously every 6 hours as needed for nausea/vomiting. - orphenadrine (NORFLEX) 30 mg/mL injection Inject 1 mL intravenously every 12 hours. - pantoprazole DR (PROTONIX) 40 mg tablet Take 1 tablet by mouth daily at 6 am. - polyethylene glycol 3350 17 gram packet 1 Packet by ORAL/FEEDING TUBE route once daily. Dissolve dose in 4 - 8 ounces of liquid and take as directed. - rivaroxaban (XARELTO) 20 mg tablet Take 1 tablet by mouth daily with dinner. - senna (SENOKOT) 8.6 mg tab Take 1 tablet by mouth two times a day. - sodium chloride 0.65 % nasal spray Use 2 Sprays in each nostril as needed. - triamcinolone acetonide (KENALOG) 0.1 % cream Apply to affected area three times a day as needed. - naloxone 4 mg/actuation nasal spray (NARCAN) Use 1 spray in one nostril as needed for overdose. May repeat every 2 to 3 min in alternating nostrils until medical assistance is available - [employer] 1 Each once daily. 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 [facility] ([id number]) 1965 M Date Time Provider Department 11/28/23 WILLEM GLASER During your visit today, we recorded the following information about you: Allergies As of Date: 11/28/2023 (No Known Allergies) Date Reviewed: 08/12/2023 Reviewed by: Michele Gonzalez, RN - Fully Assessed Primary Visit Diagnosis:Paraplegia (HCC) [G82.20] Other Visit Diagnosis:Urinary retention [R33.9] Prescriptions as of 11/28/2023 - guaiFENesin (MUCINEX) 600 mg 12 hr tablet Take 1 tablet by mouth two times a day as needed (congestion). - gabapentin (NEURONTIN) 100 mg capsule Take 1 capsule by mouth every 8 hours for 30 days. - diphenhydrAMINE-Zinc Acetate (BENADRYL) cream Apply to affected area three times a day as needed for itching/rash. FOR EXTERNAL USE ONLY APPLY TO: BACK - sodium hypochlorite (DAKIN'S QUARTER STRENGTH) 0.125 % soln Irrigate 1 mL as instructed two times a day. FOR EXTERNAL USE ONLY APPLY TO: Sacrum wound with the dressing change - insulin glargine 100 unit/mL (3 mL) Inject 20 Units subcutaneously every morning. - furosemide (LASIX) 40 mg tablet Take 1 tablet by mouth every Tuesday and Tuesday. - morphine SR (MS CONTIN) 15 mg 12 hr tablet Take 1 tablet by mouth every 12 hours for 7 days. - insulin needles, DISPOSABLE, (BD INSULIN PEN NEEDLE UF) 31 gauge x 5/16 1 Each four times daily. - alcohol swabs Apply 1 application to affected area four times daily. - acetaminophen (TYLENOL) 500 mg tablet 2 tablets by ORAL/FEEDING TUBE route every 6 hours as needed for pain or fever (specify) (mild pain). - acetylcysteine (MUCOMYST) 200 mg/mL (20 %) solution Inhale 1 mL as instructed every 6 hours as needed (secretions). - albuterol (PROVENTIL) 2.5 mg /3 mL (0.083 %) nebulizer solution Use 3 mL via nebulizer every 6 hours as needed for wheezing/shortness of breath. - aspirin 81 mg chewable tablet 1 tablet by ORAL/FEEDING TUBE route once daily. - insulin lispro 100 unit/mL injection Inject 0-5 Units subcutaneously with meals and at bedtime. Scale 1 If Blood Glucose (mg/dL) is: Less than 110 Give 0 units 111-150 Give 0 units 151-200 Give 1 unit 201-250 Give 2 units 251-300 Give 3 units 301-350 Give 4 units 351-400 Give 5 units Greater than 400 Give 5 units and Notify Provider Notify provider if 2 consecutive blood glucose values in the previous 24 hours are greater than 250 mg/dL and there have been no changes to the insulin regimen in the previous 24 hours. - methocarbamol 1,000 mg tablet Take 1 tablet by mouth three times a day as needed (muscle spasms). - methyl salicylate 30% - menthol 10% (ICY HOT) 30-10 % cream Apply to affected area three times a day as needed (upper back back). - miconazole 2 % powder Apply 1 application to affected area two times a day. - ondansetron, PF, (ZOFRAN) 4 mg/2 mL soln Inject 4 mg intravenously every 6 hours as needed for nausea/vomiting. - orphenadrine (NORFLEX) 30 mg/mL injection Inject 1 mL intravenously every 12 hours. - pantoprazole DR (PROTONIX) 40 mg tablet Take 1 tablet by mouth daily at 6 am. - polyethylene glycol 3350 17 gram packet 1 Packet by ORAL/FEEDING TUBE route once daily. Dissolve dose in 4 - 8 ounces of liquid and take as directed. - rivaroxaban (XARELTO) 20 mg tablet Take 1 tablet by mouth daily with dinner. - senna (SENOKOT) 8.6 mg tab Take 1 tablet by mouth two times a day. - sodium chloride 0.65 % nasal spray Use 2 Sprays in each nostril as needed. - triamcinolone acetonide (KENALOG) 0.1 % cream Apply to affected area three times a day as needed. - naloxone 4 mg/actuation nasal spray (NARCAN) Use 1 spray in one nostril as needed for overdose. May repeat every 2 to 3 min in alternating nostrils until medical assistance is available - Miscellaneous Medical Supply 1 Each once daily. Kelli Lift Problem List As Of Date 11/28/2023 Noted Resolved Spondylolisthesis, lumbar region [M43.16] 05/21/2016 Osteomyelitis of lumbar spine (HCC) [M46.26] 02/16/2017 Thrombosis of renal dialysis arteriovenous naima*02/16/2017 Obesity, Class III, BMI >= 40 (morbid obesity) *02/21/2017 Paralysis (HCC) [G83.9] 11/17/2022 Hypertension [I10] 11/17/2022 Controlled type 2 diabetes mellitus without com*11/17/2022 Cellulitis [L03.90] 11/17/2022 03/08/2023 MSSA (methicillin-susceptible Staph aureus) car*11/18/2022 Spinal stenosis [M48.00] 11/18/2022 Traumatic edema of thoracic spinal cord (HCC) [*11/18/2022 Bacteremia [R78.81] 11/18/2022 Acute respiratory failure with hypoxia and hype*11/26/2022 HAP (hospital-acquired pneumonia) [J18.9, Y95] 11/27/2022 Anticoagulation management encounter [Z51.81, Z*11/29/2022 BATOOL (obstructive sleep apnea) [G47.33] 11/29/2022 Venous stasis ulcer of left lower extremity (HC*12/02/2022 Venous stasis ulcer of right lower extremity (H*12/02/2022 Intertrigi (more content not included)... [facility] 11-09-2023 36 Spoke with Nay Aguirre and notified her Dr. Moser suggested either Doxycycline or Bactrim. Nay verbalized understanding. [facility] 36 They can add either Doxycycline or Bactrim for empiric MRSA which Ertapenem does not cover. Dr. Moser's response. [facility] 11-08-2023 [address] [facility] over night he developed cellulitis of both legs. No fever but his legs are hot, red, and swollen. She would like to know if the Ertapenem will cover the cellulitis or should she add an antibiotic and if so which antibiotic. [facility] 36on 11-07-2023 36 Patient discharged t o [facility] Z[facility] on 11/04/23. )PAT faxed to facility. Will call to review with the nurse. Called and spoke to nurse Donald to review all orders, no questions or concerns at this time. Normal [facility] CARECOORDon 11-04-2023 [place] Next Site of Care Admission Date: 10/27/2023 05:00 PM Patient Name: MELISSA ELIAS Location: [facility] CARDIAC PCU/[facility] [phone] Date of : 1965 ----- Placement Information ----- Referral Type:Detention/SNF - Return Referral ID:[id number] Provider Name[place] Address 1:[address] Address 2: City:[place] Selection Factors:Returning to Facility State:[place] Normal [facility] Discharge med list transmitted to [facility] via [facility] per TCC request. [facility] SW coverage for toda y. Notified that pt is approved to go to [facility] in [place]. Arranged transport thru [facility] for fern picker at 6PM. Notified RN, TCC, facility, pt, and community health nurse staff. Pt indicates that he will let his family know. [facility] CBC (HEMOGRAM)on 11-04-2023 Erythrocyte distribution width (RBC) [Ratio] 19.6 % High 11.5-15.0 [facility] Comment on above: Performed By: #### L [id number] ####Hotel Housekeeper: BARBARA PURDY ([phone])[address] Hematocrit (Bld) [Volume fraction] 26.8 % Low 40.0-52.0 [facility] Comment on above: Performed By: #### L [id number] ####Hotel Housekeeper: BARBARA [id number])[address] Hemoglobin (Bld) [Mass/Vol] 7.3 g/dL Low 13.0-18.0 [facility] Comment on above: Performed By: #### L [id number] ####Hotel Housekeeper: BARBARA [id number])[address] MCH (RBC) [Entitic mass] 20.6 pg Low 26.0-34.0 [facility] Comment on above: Performed By: #### L [id number] ####Hotel Housekeeper: BARBARA [id number])[facility] ([facility])[address] [place] [address] MCHC 27.2 % Low 30.5-36.0 [facility] Comment on above: Performed By: #### L [id number] ####Hotel Housekeeper: BARBARA PURDY ([phone])[facility] ([facility])[address] [place] [address] MCV (RBC) [Entitic vol] 75.5 fL Low 77.0-99.0 [facility] Comment on above: Performed By: #### L [id number] ####Hotel Housekeeper: BARBARA PURDY ([phone])[facility])[address] [place] [address] Platelet mean volume (Bld) [Entitic vol] 9.2 fL Normal 9.0-12.7 [facility] Comment on above: Performed By: #### L [id number] ####Hotel Housekeeper: BARBARA PURDY ([phone])[facility] ([facility])[address] [place] [address] Platelets (Bld) [#/Vol] 420 10*3/uL Normal 140-440 [facility] Comment on above: Performed By: #### L [id number] ####Hotel Housekeeper: BARBARA PURDY ([phone])[facility] ([facility])[address] [place] [address] RBC (Bld) [#/Vol] 3.55 10*6/uL Low 4.40-5.90 [facility] Comment on above: Performed By: #### L [id number] ####Hotel Housekeeper: BARBARA PURDY ([phone])[facility] ([facility])[address] [place] [address] WBC (Bld) [#/Vol] 8.7 10*3/uL Normal 3.6-10.7 [facility] Comment on above: Performed By: #### L [id number] ####Hotel Housekeeper: BARBARA PURDY ([phone])[facility] ([facility])[address] [place] [address] CBC panel Auto (Bld)on 11-03 Erythrocyte distribution width (RBC) [Ratio] 19.6 % High 11.5 - 15.0 % [facility] Hematocrit (Bld) [Volume fraction] 26.8 % Low 40.0 - 52.0 % [facility] Hemoglobin (Bld) [Mass/Vol] 7.3 g/dL Low 13.0 - 18.0 g/dL [facility] Interpretation and review of laboratory results Abnormal [facility] MCH (RBC) [Entitic mass] 20.6 pg Low 26.0 - 34.0 pg [facility] MCHC (RBC) [Mass/Vol] 27.2 % Low 30.5 - 36.0 % [facility] MCV (RBC) [Entitic vol] 75.5 fL Low 77.0 - 99.0 fL [facility] Platelet mean volume (Bld) [Entitic vol] 9.2 fL 9.0 - 12.7 fL [facility] Platelets (Bld) [#/Vol] 420 10*3/uL 140 - 440 10*3/uL [facility] RBC (Bld) [#/Vol] 3.55 10*6/uL Low 4.40 - 5.9 0 10*6/uL [facility] WBC (Bld) [#/Vol] 8.7 10*3/uL 3.6 - 10.7 10*3/uL [facility] COMPREHENSIVE METABOLIC PANE Geoffrey 11-04-2023 Albumin [Mass/Vol] 3.1 g/dL Low 3.5-5.0 [facility] Comment on above: Performed By: #### L [id number] ####Hotel Housekeeper: BARBARA PURDY ([phone])[facility] ([facility])[address] [place] [address] ALP [Catalytic activity/Vol] 92 U/L Normal 38-126 [facility] Comment on above: Performed By: #### L [id number] ####Hotel Housekeeper: BARBARA PURDY ([phone])[facility] ([facility])[address] [place] [address] ALT [Catalytic activity/Vol] 16 U/L Normal 0-49 [facility] Comment on above: Performed By: #### L [id number] ####Hotel Housekeeper: BARBARA PURDY ([phone])[facility] ([facility])[address] [place] [address] Anion gap [Moles/Vol] 4 mmol/L Normal 3-13 [facility] Comment on above: Performed By: #### L [id number] ####Hotel Housekeeper: BARBARA PURDY ([phone])[facility] ([facility])[address] [place] [address] [place] AST [Catalytic activity/Vol] 23 U/L Normal 15-46 [facility] Comment on above: Performed By: #### L [id number] ####Hotel Housekeeper: BARBARA PURDY ([phone])[facility] ([facility])[address] [place] [address] Bilirubin [Mass/Vol] 0.3 mg/dL Normal 0.2-1.3 [facility] Comment on above: Performed By: #### L [id number] ####Hotel Housekeeper: BARBARA PURDY ([phone])[facility] ([facility])[address] [place] [address] Calcium [Mass/Vol] 8.4 mg/dL Normal 8.4-10.4 [facility] Comment on above: Performed By: #### L [id number] ####Hotel Housekeeper: BARBARA PURDY ([phone])[facility] ([facility])[address] [place] [address] [place] Chloride [Moles/Vol] 101 mmol/L Normal 98-107 [facility] Comment on above: Performed By: #### L [id number] ####Hotel Housekeeper: BARBARA PURDY ([phone])[facility] ([facility])[address] [place] [address] [place] CO2 [Moles/Vol] 31 mmol/L High 22-30 [facility] Comment on above: Performed By: #### L [id number] ####Hotel Housekeeper: BARBARA PURDY ([phone])[facility] ([facility])[address] [place] [address] [place] Creatinine [Mass/Vol] 0.50 mg/dL Low 0.66-1.25 [facility] Comment on above: Performed By: #### L [id number] ####Hotel Housekeeper: BARBARA PURDY ([phone])[facility])[address] [place] [address] GLOMERULAR FILTRATION RATE ML/MIN/1.73 SQ M.PREDICTED >90.0 Normal >60.0 [facility] Comment on above: Result Comment: Calc ulation based on the Chronic Kidney Disease Epidemiology Collaboration (CKD-EPI) equation refit without adjustment for race Performed By: #### L [id number] ####Hotel Housekeeper: BARBARA PURDY ([phone])[facility] ([facility])[address] [place] [address] Glucose [Mass/Vol] 135 mg/dL High 70-100 [facility] Comment on above: Performed By: #### L [id number] ####Hotel Housekeeper: BABRARA PURDY ([phone])[facility])[address] [place] [address] Potassium [Moles/Vol] 4.1 mmol/L Normal 3.5-5.1 [facility] Comment on above: Performed By: #### L [id number] ####Hotel Housekeeper: BARBARA PURDY ([phone])[facility])[address] [place] [address] Protein [Mass/Vol] 6.6 g/dL Normal 6.3-8.2 [facility] Comment on above: Performed By: #### L [id number] ####Hotel Housekeeper: BARBARA PURDY ([phone])[facility])[address] [place] [address] [place] Sodium [Moles/Vol] 136 mmol/L Normal 135-145 [facility] Comment on above: Performed By: #### L [id number] ####Hotel Housekeeper: BARBARA PURDY ([phone])[facility])[address] [place] [address] Urea nitrogen [Mass/Vol] 13 mg/dL Normal 9-20 [facility] Comment on above: Performed By: #### L [id number] ####Hotel Housekeeper: BARBARA PURDY ([phone])[facility] ([facility])[address] [place] [address] Comprehensive metabolic 1998 panelon 11-04-2023 Albumin [Mass/Vol] 3.1 g/dL Low 3.5 - 5.0 g/dL [facility] ALP [Catalytic activity/Vol] 92 U/L 38 - 126 U/L [facility] ALT [Catalytic activity/Vol] 16 U/L 0 - 49 U/L [facility] Anion gap [Moles/Vol] 4 mmol/L 3 - 13 mmol/L [facility] AST [Catalytic activity/Vol] 23 U/L 15 - 46 U/L [facility] Bilirubin [Mass/Vol] 0.3 mg/dL 0.2 - 1 .3 mg/dL [facility] Calcium [Mass/Vol] 8.4 mg/dL 8.4 - 10. 4 mg/dL [facility] Chloride [Moles/Vol] 101 mmol/L 98 - 10 7 mmol/L [facility] CO2 [Moles/Vol] 31 mmol/L High 22 - 30 mmol/L [facility] Creatinine [Mass/Vol] 0.50 mg/dL Low 0.66 - 1.25 mg/dL [facility] GFR/1.73 sq M.predicted MDRD (S/P/Bld) [Vol rate/Area] - PINF [facility] Comment on above: Calculation based on the Chronic Kidney Disease Epidemiology Collaboration (CKD-EPI) equation refit without adjustment for race Glucose [Mass/Vol] 135 mg/dL High 70 - 100 mg/dL [facility] Interpretation and review of laboratory results Abnormal [facility] Potassium [Moles/Vol] 4.1 mmol/L 3.5 - 5.1 mmol/L [facility] Protein [Mass/Vol] 6.6 g/dL 6.3 - 8.2 g/dL [facility] Sodium [Moles/Vol] 136 mmol/L 135 - 145 mmol/L [facility] Urea nitrogen [Mass/Vol] 13 mg/dL 9 - 20 mg/dL [facility] IDNon 11-04-2023 IDN The patient is Moder ately Stable - Low risk of patient condition declining or worsening The patient's goals for the shift include To breath better The clinical goals for the shift include Pt safety Normal [facility] Laboratory - Chemistry and C hemistry - challengeon 11-04-2023 Glucose [Mass/Vol] 177 mg/dL High 70 - 100 mg/dL [facility] Glucose [Mass/Vol] 196 mg/dL High 70 - 100 mg/dL [facility] Glucose [Mass/Vol] 139 mg/dL High 70 - 100 mg/dL [facility] No Panel Informationon 11-03 Interpretation and review of laboratory results Abnormal [facility] Performed by: [facility], [address] [place] [address] CLIA ID: [id number] [facility] Interpretation and review of laboratory results Abnormal [facility] Performed by: [facility], [address] [place] [address] CLIA ID: [id number] [facility] Interpretation and review of laboratory results Abnormal [facility] Performed by: [facility], [address] [place] [address] CLIA ID: [id number] [facility] Radiology Study observation (narrative) [facility] Radiology Study observation (narrative) [facility] Radiology Study observation (narrative) [facility] XR CHEST 1 VIEWon 11-04-2023 XR CHEST 1 VIEW Patient Name: MELISSA DU : 1965 [facility]#: [id number] Exam Date/Time: 11/04/2023 06:44 Procedure: XR CHEST 1 VIEW Ordering Provider: ROCKWELL HARIKRISHNA Reason For Exam: Bilateral infiltrates and effusion INDICATION: Bilateral infiltrates and pleural effusions. VIEWS: Chest portable-2 images COMPARISON: 11/03/2023 and 10/28/2023 FINDINGS: A right PICC line tip overlies the right atria. Thoracolumbar fusion hardware is present. The patient is rotated. The trachea is midline. The cardiac silhouette is within normal limits. The right hemidiaphragm remains elevated. Bilateral pleural effusions have not significantly changed. Thickening of the interstitium has not significantly changed. The lung volumes remain low. IMPRESSION: 1. No significant change. 2. Bilateral pleural effusions, right greater than left. 3. Pulmonary edema and/or infiltrates. Report Dictated on Electronically Signed By: Kassie Davis MD Electronically Signed Date/Time: 11/04/2023 7:[address] [facility] XR Chest Single viewon 11-03 1. No significant change. 2. Bilateral pleural effusions, right greater than left. 3. Pulmonary edema and/or infiltrates. Report Dictated on Electronically Signed By: Kassie Davis MD Electronically Signed Date/Time: 11/04/2023 7:39 AM EDT [facility] Patient Name: MELISSA DU : 1965 Exam Date/Time: 11/04/2023 06:44 Procedure: XR CHEST 1 VIEW Ordering Provider: ROCKWELL HARIKRISHNA Reason For Exam: Bilateral infiltrates and effusion INDICATION: Bilateral infiltrates and pleural effusions. VIEWS: Chest portable-2 images COMPARISON: 11/03/2023 and 10/28/2023 FINDINGS: A right PICC line tip overlies the right atria. Thoracolumbar fusion hardware is present. The patient is rotated. The trachea is midline. The cardiac silhouette is within normal limits. The right hemidiaphragm remains elevated. Bilateral pleural effusions have not significantly changed. Thickening of the interstitium has not significantly changed. The lung volumes remain low. [facility] Kassie Davis MD - 11/04/2023 Patient Name: MELISSA ELIAS : 1965 Exam Date/Time: 11/04/2023 06:44 Procedure: XR CHEST 1 VIEW Ordering Provider: ROCKWELL HARIKRISHNA Reason For Exam: Bilateral infiltrates and effusion INDICATION: Bilateral infiltrates and pleural effusions. VIEWS: Chest portable-2 images COMPARISON: 11/03/2023 and 10/28/2023 FINDINGS: A right PICC line tip overlies the right atria. Thoracolumbar fusion hardware is present. The patient is rotated. The trachea is midline. The cardiac silhouette is within normal limits. The right hemidiaphragm remains elevated. Bilateral pleural effusions have not significantly changed. Thickening of the interstitium has not significantly changed. The lung volumes remain low. IMPRESSION: 1. No significant change. 2. Bilateral pleural effusions, right greater than left. 3. Pulmonary edema and/or infiltrates. Report Dictated on Electronically Signed By: Kassie Davis MD Electronically Signed Date/Time: 11/04/2023 7:39 AM EDT [facility] Radiology [facility]narrative[facility] cont to follow wi th TCC for return to [place]. Amb request in Round Trip as Will Call. Normal [facility] Updated PT note plac ed to [facility] [place] via [facility] per TCC request. Normal [facility] TCC tasked BATTERY LOADER to se nd updated therapy noted to [facility]. Normal [facility] CBC (HEMOGRAM)on 11-03-2023 Erythrocyte distribution width (RBC) [Ratio] 19.8 % High 11.5-15.0 [facility] Comment on above: Performed By: #### L [id number] ####Hotel Housekeeper: BARBARA PURDY ([phone])[address] Hematocrit (Bld) [Volume fraction] 27.3 % Low 40.0-52.0 [facility] Comment on above: Performed By: #### L [id number] ####Hotel Housekeeper: BARBARA PURDY ([phone])[address] Hemoglobin (Bld) [Mass/Vol] 7.2 g/dL Low 13.0-18.0 [facility] Comment on above: Performed By: #### L [id number] ####Hotel Housekeeper: BARBARA PURDY ([phone])[facility] ([facility])[address] [place] [address] MCH (RBC) [Entitic mass] 19.8 pg Low 26.0-34.0 [facility] Comment on above: Performed By: #### L [id number] ####Hotel Housekeeper: BARBARA PURDY ([phone])[facility] ([facility])[address] [place] [address] MCHC 26.4 % Low 30.5-36.0 [facility] Comment on above: Performed By: #### L [id number] ####Hotel Housekeeper: BARBARA PURDY ([phone])[facility] ([facility])[address] [place] [address] MCV (RBC) [Entitic vol] 75.2 fL Low 77.0-99.0 [facility] Comment on above: Performed By: #### L [id number] ####Hotel Housekeeper: BARBARA PURDY ([phone])[facility] ([facility])[address] [place] [address] Platelet mean volume (Bld) [Entitic vol] 9.5 fL Normal 9.0-12.7 [facility] Comment on above: Performed By: #### L [id number] ####Hotel Housekeeper: BARBARA PURDY ([phone])[facility] ([facility])[address] [place] [address] Platelets (Bld) [#/Vol] 459 10*3/uL High 140-440 [facility] Comment on above: Performed By: #### L [id number] ####Hotel Housekeeper: BARBARA PURDY ([phone])[facility] ([facility])[address] [place] [address] RBC (Bld) [#/Vol] 3.63 10*6/uL Low 4.40-5.90 [facility] Comment on above: Performed By: #### L [id number] ####Hotel Housekeeper: BARBARA PURDY ([phone])[facility] ([facility])[address] [place] [address] WBC (Bld) [#/Vol] 11.8 10*3/uL High 3.6-10.7 [facility] Comment on above: Performed By: #### L [id number] ####Hotel Housekeeper: BARBARA PURDY ([phone])[facility] ([facility])[address] [place] [address] CBC panel Auto (Bld)Ordered By: Maggie Whitaker on 11-03-2023 Erythrocyte distribution width (RBC) [Ratio] 19.8 % High 11.5 - 15.0 % [facility] Hematocrit (Bld) [Volume fraction] 27.3 % Low 40.0 - 52.0 % [facility] Hemoglobin (Bld) [Mass/Vol] 7.2 g/dL Low 13.0 - 18.0 g/dL [facility] Interpretation and review of laboratory results Abnormal [facility] MCH (RBC) [Entitic mass] 19.8 pg Low 26.0 - 34.0 pg [facility] MCHC (RBC) [Mass/Vol] 26.4 % Low 30.5 - 36.0 % [facility] MCV (RBC) [Entitic vol] 75.2 fL Low 77.0 - 99.0 fL [facility] Platelet mean volume (Bld) [Entitic vol] 9.5 fL 9.0 - 12.7 fL [facility] Platelets (Bld) [#/Vol] 459 10*3/uL High 140 - 440 10*3/uL [facility] RBC (Bld) [#/Vol] 3.63 10*6/uL Low 4.40 - 5.9 0 10*6/uL [facility] WBC (Bld) [#/Vol] 11.8 10*3/uL High 3.6 - 10.7 10*3/uL [facility] COMPREHENSIVE METABOLIC PANE Geoffrey 11-03-2023 Albumin [Mass/Vol] 3.1 g/dL Low 3.5-5.0 [facility] Comment on above: Performed By: #### L [id number] ####Hotel Housekeeper: BARBARA PURDY ([phone])[facility] ([facility])[address] [place] [address] ALP [Catalytic activity/Vol] 96 U/L Normal 38-126 [facility] Comment on above: Performed By: #### L [id number] ####Hotel Housekeeper: BARBARA PURDY ([phone])[facility] ([facility])[address] [place] [address] ALT [Catalytic activity/Vol] 14 U/L Normal 0-49 [facility] Comment on above: Performed By: #### L [id number] ####Hotel Housekeeper: BARBARA PURDY ([phone])[facility] ([facility])[address] [place] [address] Anion gap [Moles/Vol] 5 mmol/L Normal 3-13 [facility] Comment on above: Performed By: #### L AB17 ####Hotel Housekeeper: BARBARA PURDY ([phone])[facility] ([facility])[address] [place] [address] AST [Catalytic activity/Vol] 27 U/L Normal 15-46 [facility] Comment on above: Performed By: #### L [id number] ####Hotel Housekeeper: BARBARA PURDY ([phone])[facility] ([facility])[address] [place] [address] Bilirubin [Mass/Vol] 0.3 mg/dL Normal 0.2-1.3 [facility] Comment on above: Performed By: #### L [id number] ####Hotel Housekeeper: BARBARA PURDY ([phone])[facility] ([facility])[address] [place] [address] Calcium [Mass/Vol] 8.1 mg/dL Low 8.4-10.4 [facility] Comment on above: Performed By: #### L [id number] ####Hotel Housekeeper: BARBARA PURDY ([phone])[facility] ([facility])[address] [place] [address] [place] Chloride [Moles/Vol] 99 mmol/L Normal 98-107 [facility] Comment on above: Performed By: #### L AB17 ####Hotel Housekeeper: BARBARA PURDY ([phone])[facility] ([facility])[address] CO2 [Moles/Vol] 31 mmol/L High 22-30 [facility] Comment on above: Performed By: #### L AB17 ####Hotel Housekeeper: BARBARA PURDY ([phone])[facility] ([facility] [place] [address] Creatinine [Mass/Vol] 0.58 mg/dL Low 0.66-1.25 [facility] Comment on above: Performed By: #### L AB17 ####Hotel Housekeeper: BARBARA PURDY ([phone])[facility] ([facility])[address] [place] [address] GLOMERULAR FILTRATION RATE ML/MIN/1.73 SQ M.PREDICTED >90.0 Normal >60.0 [facility] Comment on above: Result Comment: Calc ulation based on the Chronic Kidney Disease Epidemiology Collaboration (CKD-EPI) equation refit without adjustment for race Performed By: #### L [id number] ####Hotel Housekeeper: BARBARA PURDY ([phone])[facility] [place] [address] Glucose [Mass/Vol] 214 mg/dL High 70-100 [facility] Comment on above: Performed By: #### L AB17 ####Hotel Housekeeper: BARBARA PURDY ([phone])[facility] [place] [address] Potassium [Moles/Vol] 4.0 mmol/L Normal 3.5-5.1 [facility] Comment on above: Performed By: #### L AB17 ####Hotel Housekeeper: BARBARA PURDY ([phone])[facility] ([facility] [place] [address] [place] Protein [Mass/Vol] 6.6 g/dL Normal 6.3-8.2 [facility] Comment on above: Performed By: #### L AB17 ####Hotel Housekeeper: BARBARA PURDY ([phone])[facility] [place] [address] [place] Sodium [Moles/Vol] 135 mmol/L Normal 135-145 [facility] Comment on above: Performed By: #### L AB17 ####Hotel Housekeeper: BARBARA PURDY ([phone])[address] Urea nitrogen [Mass/Vol] 13 mg/dL Normal 9-20 [facility] Comment on above: Performed By: #### L AB17 ####Hotel Housekeeper: BARBARA PURDY ([phone])[facility] ([facility])[address] [place] [address] Comprehensive metabolic 1998 panelon 11-03-2023 Albumin [Mass/Vol] 3.1 g/dL Low 3.5 - 5.0 g/dL [facility] ALP [Catalytic activity/Vol] 96 U/L 38 - 126 U/L [facility] ALT [Catalytic activity/Vol] 14 U/L 0 - 49 U/L [facility] Anion gap [Moles/Vol] 5 mmol/L 3 - 13 mmol/L [facility] AST [Catalytic activity/Vol] 27 U/L 15 - 46 U/L [facility] Bilirubin [Mass/Vol] 0.3 mg/dL 0.2 - 1 .3 mg/dL [facility] Calcium [Mass/Vol] 8.1 mg/dL Low 8.4 - 10. 4 mg/dL [facility] Chloride [Moles/Vol] 99 mmol/L 98 - 10 7 mmol/L [facility] CO2 [Moles/Vol] 31 mmol/L High 22 - 30 mmol/L [facility] Creatinine [Mass/Vol] 0.58 mg/dL Low 0.66 - 1.25 mg/dL [facility] [facility] GFR/1.73 sq M.predicted MDRD (S/P/Bld) [Vol rate/Area] - PINF [facility] Comment on above: Calculation based on the Chronic Kidney Disease Epidemiology Collaboration (CKD-EPI) equation refit without adjustment for race Glucose [Mass/Vol] 214 mg/dL High 70 - 100 mg/dL [facility] Interpretation and review of laboratory results Abnormal [facility] Potassium [Moles/Vol] 4.0 mmol/L 3.5 - 5.1 mmol/L [facility] Protein [Mass/Vol] 6.6 g/dL 6.3 - 8.2 g/dL [facility] Sodium [Moles/Vol] 135 mmol/L 135 - 145 mmol/L [facility] Urea nitrogen [Mass/Vol] 13 mg/dL 9 - 20 mg/dL [facility] Consulton 11-03-[address] following Normal [facility] IDNon 11-03-2023 IDN Problem: Knowledge Deficit Goal: Patient/family/caregiver demonstrates understanding of disease process, treatment plan, medications, and discharge instructions Outcome: Progressing Problem: Potential for Compromised Skin Integrity Goal: Skin Integrity is Maintained or Improved Outcome: Progressing Goal: Nutritional status is improving Outcome: Progressing Problem: Urinary Incontinence Goal: Perineal skin integrity is maintained or improved Outcome: Progressing Problem: Hemodynamic Status Goal: Patient's vitals signs are stable Outcome: Progressing Problem: Excessive Fluid Volume Goal: Fluid and electrolyte balance are achieved/maintained Outcome: Progressing Problem: Inadequate Gas Exchange Goal: Nutritional status is improving Outcome: Progressing Goal: Patient is adequately oxygenated and ventilation is improved Outcome: Progressing Problem: Activity Intolerance/Impaired Mobility Goal: Mobility/activity is maintained at optimum level for patient Outcome: Progressing Problem: Nutrition Goal: Nutritional status is improving Outcome: Progressing Problem: Problem Interventions Goal: Assess Nutritional Intake Outcome: Progressing The patient is Moderately Stable - Low risk of patient condition declining or worsening The patient's goals for the shift include To breath better The clinical goals for the shift include Pt safety Normal [facility] Laboratory - Chemistry and C hemistry - challengeon 11-03-2023 Glucose [Mass/Vol] 191 mg/dL High 70 - 100 mg/dL [facility] Glucose [Mass/Vol] 200 mg/dL High 70 - 100 mg/dL [facility] Glucose [Mass/Vol] 233 mg/dL High 70 - 100 mg/dL [facility] Glucose [Mass/Vol] 169 mg/dL High 70 - 100 mg/dL [facility] No Panel Informationon 11-02 Interpretation and review of laboratory results Abnormal [facility]formed by: [facility], [address] [place] [id number] CLIA ID: [id number] [facility] Interpretation and review of laboratory results Abnormal [facility] Performed by: [facility], [address] [place] [id number] CLIA ID: [id number] [facility] Interpretation and review of laboratory results Abnormal [facility] Performed by: [facility], [address] [place] [id number] CLIA ID: [id number] [facility] Interpretation and review of laboratory results Abnormal [facility] Performed by: [facility], [address] [place] [id number] CLIA ID: [id number] [facility] Radiology Study observation (narrative) [facility] Radiology Study observation (narrative) [facility] Radiology Study observation (narrative) [facility] Radiology Study observation (narrative) [facility] Progress Noteon 11-03-2023 Progress Note Nutrition Assessment Type and Reason for Visit: Reassess, Consult (wounds) Nutrition Recommendations/Plan: Continue Adult diet Regular; Isolation Tray (Disposables); 4 carb choices (60 gm/meal) Supplement(s): Modified Ensure Juice TID to Chocolate Ensure Max Protein 1x/day (provides 150 kcals, 30 grams protein, 11 oz per serving) per MNT protocol as pt now off CLD. Will also send Wiliam (to provide 90 kcals, 14 g AA, 2.5 g Collagen, 300 mg Vitamin C, 9.5 mg Zinc - per packet) BID for wound healing Please provide tray setup help, feeding assistance as needed Will continue to monitor labs, meds, po intakes and/or enteral nutrition tolerance, skin integrity, wt trends, and overall nutrition status - RD to follow weekly Malnutrition Assessment: Malnutrition Status: At risk for malnutrition (Comment) (PNA w/ loculated effusions not amendable to thora, CLD, Wound, UTI) Context: Acute Illness Findings of the 6 clinical characteristics of malnutrition: Energy Intake: 75% or less of estimated energy requirements for 7 or more days (CLD - pt started to feel ill on Sunday 10/22) Weight Loss: Unable to assess (limited wt hx) Body Fat Loss: Unable to assess Muscle Mass Loss: Unable to assess Fluid Accumulation: Moderate to Severe Extremities Mine Deputy Strength: Not Performed Brief Hospital course: Melissa is a 58 y.o. male with past medical history below who presented to ED with healthcare acquired pneumonia. Hx significant for DMII, paraplegia, BATOOL, Hx of blood clots and resides at [facility]. (+) Chronic Bartlett, was recently found to have ESBL E coli UTI. Admitted 10/24 at [place] when he presented to ED for hypoxia and found to have pneumonia. Started on empiric Vancomycin/Merrem. Pt transferred to [facility] from [place] for CT Surgical specialty assessment for drainage of effusions. AdmitTED for further evaluation and management. - Transfer for Cardiothoracic surgical specialty assessment and drainage of loculations - Vanc/Merrem - reported allergy/intolerance to PCNs - Per documentation Ucx (+) for ESBL E coli, Klebiella and Proteus. Respiratory workup noted Covid/Influenza/RSV negative. Strep, Legionella negative. CT surgery seen the patient, recommends no acute surgical intervention at this time. Pulmonary consulted ID consulted Interval History: 11/02/2023-patient alert, chart reviewed, denies any complaints. Patient apparently has had gluteal drain placed in July and was recommended to have it removed in 60 days. 11/02 patient alert and conversant, we discussed discharge plan to SNF, lower extremity immobility, Atbx regimen with revision/titration per ID team. General improvement to systemic symptoms. No acute distress or complaint aware of planned discharge disposition Nutrition Assessment: RD following for wound. 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. Has a chronic Bartlett and colostomy. Recently found to have ESBL E coli UTI. Admitted 10/24 at [facility] when he presented to the ED for hypoxia. CTA suggestive of PNA w/ loculated right pleural effusion. Had negative urine strep pneumo/legionella and COVID/Flu/RSV. Thora attempted but there was no amenable pocket for drainage. Started on empiric vanc/merrem. T/fx to [facility] for CT surgical specialty assessment for drainage of loculations. CTS eval'd pt, no surgical interventions at this time. Pulm eval'd for PNA w/ reported mucus plugging - no indication for bronch at this time. He is on 4L NC at this time. 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 ID managing ATB therapy. Tolerating diet. No surgical intervention needed to his chronic decub ulcers, and pnrose was dc'd by Surgery resident yesterday. Awaiting placement. Ertapenem to 11/13 planned. CLD advanced to regular on 10/27. Estimated Daily Nutrient Needs: Energy Requirements Based On: Kcal/kg Weight Used for Energy Requirements: Adjusted Weight for Energy Calculation (kg): 62.23 kg Total Energy Requirements (kcals/day): 0530-5659 (25-30 kcals/kg AIBW) Weight Used for Protein Requirements: Adjusted (AIBW for obesity) Weight in Kg Used for Protein Requirements: 62.23 kg Estimated Total Protein (g/day): 75-94 (1.2-1.5 g/kg AIBW) Estimated Daily Total Fluid (ml/day): 1 ml/kcal or per MD Nutrition Related Findings: Wound Type: (per wound care: Sacrum: Pressure Injury (Stage 4)) Isolation Status: none Food Allergies: NKFA Room Service: Selective Qamar Scale Score: 13 Net IO Since Admission: -14,860 mL [11/03/23 1725] BLE Edema: Moderate pitting, indentation subsides rapidly Bowel Sounds (All Quadrants): Active Nutrition History: Resides at [facility], Paraplegia, Colostomy, Chronic Bartlett Intake/Output Summary (Last 24 hours) at 11/03/2023 1725 Last data filed at 11/03/2023 1221 Gross per 24 hour Intake 520 (more content not included)... Normal [facility] Progress Note OCCUPATIONAL THERAPY [facility] Treatment Note Name/MRN: Melissa Elias ([id number]) Date of : 1965 Age: 58 y.o. Room[facility]Bed: [facility] Discharge Recommendation: Usp Facility Other: tbd next level care Prior Level of Function ADL Assistance: Needs Assist Ambulation Assistance: Device(s) used: wheelchair - manual and kelli Non-Ambulatory Transfer Assistance: Needs Assist Assessment Currently, Pt required MAX A x 2 for all aspects of bed mobility. Pt declined EOB activity d/t severe pain in thoracic and lumbosacral regions- despite encouragement and education. Pt required SUP after set up for grooming task at bed level. Pt required MOD A UB ADL and DEP for LB ADL. Pt required DEP for all aspects of anterior and posterior hygiene d/t body habitus. Pt is limited by decreased functional endurance, pain, & decreased tolerance for EOB activity hindering indep and safety with functional tasks. Recommending SNF upon discharge in order to achieve highest level of function. Subjective Pt reclined in bed upon entry. RN approved of therapy. Pt reports pain in thoracic and lumbosacral regions 02/22- RN notified of such. Pt cooperative and agreeable to OT TX. Pt stated I'm hopeful that after my lungs clear up I can get a shower! CERRATO/L requested a bariatric recliner chair to encourage OOB activity- Pt receptive. Pain: 0-10 pain scale: 10/10 Location: thoracic & lumbosacral regions Medical Precautions: Contact Proper PPE donned/doffed in accordance with facility standards. Fall Risk: Sarabia Fall Risk Score: 60 (High Risk) Precautions/Restrictions: contact precautions, bartlett, 4 L of o2, & Skin Family/Caregiver Present: none Objective ADLs Grooming: Supervision, after setup- to wash face, neck and hands and perform oral hygiene with set up assist to open toothpaste cap d/t decreased FMC. LE Bathing: Max Assist- physical assist to reach below thighs- educated on use of LHS to increase indep and safety of task. UE Dressing: Contact Guard- touch assist to thread RUE into sleeve of gown and tactile cues to pull up to shoulder level. LE Dressing: Dependent- to isidro/ doff gripper socks- Pt requested to doff at the EOS d/t being too warm Toileting: Max Assist, x2 Person Assist- for bartlett care and assist rolling side to side Bed Mobility Rolling to right: Max Assist, x2 Person Assist- physical assist and tactile cues for sequencing Rolling to left: Max Assist, x2 Person Assist Scooting: Max Assist, x2 Person Assist- with bottom half of bed elevated Pt able to pull self up towards HOB with tactile cues for hand placement & physical assist with use of glide sheet Exercise Comment: AROM BUE in all available joints and planes 10 x 2 reps to promote ROM, strength and endurance for increased indep with self care tasks + tactile cues for proper form and PLB technique with rest periods between each set. Plan Continue acute OT per plan of care. Safety/Education Safety Safety Devices in place: All fall risk precautions in place, call light within reach, left in bed, bed alarm in place, and nurse notified Restraints: No Education Education Given To: patient Education Provided: OT Role, Plan of Care, Home Exercise Program, ADL Adaptive Strategies, Transfer Training, Energy Conservation, Orientation, Discharge Recommendations, Benefits of Increasing Activity, and Breathing Techniques Education Method: Verbal, Demonstration, and Teach Back Barriers to Learning: Lack of Family/Social Support Education Outcome: Verbalized Understanding and Continued Education Needed AM-PAC AM-PAC Inpatient Daily Activity Raw Score: 13 ADL Inpatient CMS G-Code Modifier: CL Goals Patient Stated Goal: Return to SNF Encounter Problems Encounter Problems (Active) Balance Patient will maintain static sitting balance for 3+ minutes with max assist in order to demonstrate improved postural control and prepare for out of bed mobility. (Not Addressed) Start: 11/01/23 Goal Note Pt declined EOB activity d/t severe pain 10/10 in thoracic and lumbosacral regions- repositioned for comfort with pillows under sacrum and to promote skin integrity. Transfers Patient will complete functional transfer with least restrictive device with max assist in order to prepare for ambulation. (Not Addressed) Start: 11/01/23 Patient will perform bed mobility with max assist in order to improve independence and prepare for out of bed mobility. (Slowly Progressing) Start: 11/01/23 Therapy Time Individual Co-treatment Time In 0801 Time Out 0847 Minutes 46 Timed Code Treatment Minutes: 46 Minutes (2-ADL; 1- FUNCT ACT) SAQIB Mess[place] [facility] XR CHEST 1 VIEWon 11-03-2023 XR CHEST 1 VIEW [facility] DU [facility] 1965 [id number] Exam Date/Time: 11/03/2023 06:44 Procedure: XR CHEST 1 VIEW Ordering Provider: ROCKWELL HARIKRISHNA Reason For Exam: Bilateral infiltrates and effusion CHEST - PORTABLE: CLINICAL INDICATION: Respiratory distress for follow up. Pneumonia/effusions. TECHNIQUE: Portable AP COMPARISON: One day ago. IMPRESSION: FINDINGS/IMPRESSION: Limitations: Patient positioning, underpenetration. Lines, tubes, and devices: Right-sided PICC line is unchanged in position. Cardiomediastinal silhouette: Not well evaluated. Lungs/Pleura: Low lung volumes with elevation of the right greater than left hemidiaphragm. Right greater than left layering pleural effusions and perihilar/basilar airspace disease similar in appearance. No pneumothorax. Osseous structures: Unchanged in appearance. Soft tissues: No soft tissue abnormality is detected. Report Dictated on Electronically Signed By: Narendra Maguire MD Electronically Signed Date/Time: 11/03/2023 9:49 AM EDT [facility] XR Chest Single viewon 11-02 FINDINGS/IMPRESSION: Limitations: Patient positioning, underpenetration. Lines, tubes, and devices: Right-sided PICC line is unchanged in position. Cardiomediastinal silhouette: Not well evaluated. Lungs/Pleura: Low lung volumes with elevation of the right greater than left hemidiaphragm. Right greater than left layering pleural effusions and perihilar/basilar airspace disease similar in appearance. No pneumothorax. Osseous structures: Unchanged in appearance. Soft tissues: No soft tissue abnormality is detected. Report Dictated on Electronically Signed By: Narendra Maguire MD Electronically Signed Date/Time: 11/03/2023 9:49 AM EDT [facility] Patient Name: MELISSA DU : 1965 Exam Date/Time: 11/03/2023 06:44 Procedure: XR CHEST 1 VIEW Ordering Provider: ROCKWELL HARIKRISHNA Reason For Exam: Bilateral infiltrates and effusion CHEST - PORTABLE: CLINICAL INDICATION: Respiratory distress for follow up. Pneumonia/effusions. TECHNIQUE: Portable AP COMPARISON: One day ago. [facility] Nba Maguire MD - 11/03/2023 Patient Name: MELISSA ELIAS : 1965 Exam Date/Time: 11/03/2023 06:44 Procedure: XR CHEST 1 VIEW Ordering Provider: ROCKWELL HARIKRISHNA Reason For Exam: Bilateral infiltrates and effusion CHEST - PORTABLE: CLINICAL INDICATION: Respiratory distress for follow up. Pneumonia/effusions. TECHNIQUE: Portable AP COMPARISON: One day ago. IMPRESSION: FINDINGS/IMPRESSION: Limitations: Patient positioning, underpenetration. Lines, tubes, and devices: Right-sided PICC line is unchanged in position. Cardiomediastinal silhouette: Not well evaluated. Lungs/Pleura: Low lung volumes with elevation of the right greater than left hemidiaphragm. Right greater than left layering pleural effusions and perihilar/basilar airspace disease similar in appearance. No pneumothorax. Osseous structures: Unchanged in appearance. Soft tissues: No soft tissue abnormality is detected. Report Dictated on Electronically Signed By: Narendra Maguire MD Electronically Signed Date/Time: 11/03/2023 9:49 AM EDT [facility] Single viewOrdered By: Nba Maguire on 11-03-[address] [facility] Work Phone: CARECOORDon 11-02-2023 CARECOORD OPAT placed to [facility] [place] via [employer] per TCC request. Normal [facility] CBC (HEMOGRAM)on 11-02-2023 Erythrocyte distribution width (RBC) [Ratio] 19.8 % High 11.5-15.0 [facility] Comment on above: Performed By: #### L [id number] #### Hotel Housekeeper: BARBARA PURDY ([id number]) [address] Hematocrit (Bld) [Volume fraction] 26.7 % Low 40.0-52.0 [facility] Comment on above: Performed By: #### L [id number] #### Hotel Housekeeper: BARBARA PURDY ([id number]) [facility] ([facility]) [address] [place] [address] Hemoglobin (Bld) [Mass/Vol] 7.3 g/dL Low 13.0-18.0 [facility] Comment on above: Performed By: #### L [id number] #### Hotel Housekeeper: BARBARA PURDY ([id number]) [facility]) [address] [place] [address] MCH (RBC) [Entitic mass] 20.3 pg Low 26.0-34.0 [facility] Comment on above: Performed By: #### L [id number] #### Hotel Housekeeper: BARBARA PURDY ([id number]) [facility] ([facility]) [address] [place] [address] MCHC 27.3 % Low 30.5-36.0 [facility] Comment on above: Performed By: #### L [id number] #### Hotel Housekeeper: BARBARA PURDY ([id number]) [facility] ([facility]) [address] [place] [address] MCV (RBC) [Entitic vol] 74.4 fL Low 77.0-99.0 [facility] Comment on above: Performed By: #### L [id number] #### Hotel Housekeeper: BARBARA PURDY ([id number]) [facility]) [address] [place] [address] Platelet mean volume (Bld) [Entitic vol] 9.1 fL Normal 9.0-12.7 [facility] Comment on above: Performed By: #### L [id number] #### Hotel Housekeeper: BARBARA PURDY ([id number]) [facility] ([facility]) [address] [place] [address] Platelets (Bld) [#/Vol] 423 10*3/uL Normal 140-440 [facility] Comment on above: Performed By: #### L [id number] #### Hotel Housekeeper: BARBARA PURDY ([id number]) [facility]) [address] [place] [address] RBC (Bld) [#/Vol] 3.59 10*6/uL Low 4.40-5.90 [facility] Comment on above: Performed By: #### L [id number] #### Hotel Housekeeper: BARBARA PURDY ([id number]) [facility]) [address] [place] [address] WBC (Bld) [#/Vol] 9.2 10*3/uL Normal 3.6-10.7 [facility] Comment on above: Performed By: #### L [id number] #### Hotel Housekeeper: BARBARA PURDY ([id number]) [facility] ([facility]) [address] [place] [address] CBC panel Auto (Bld)on 11-01 Erythrocyte distribution width (RBC) [Ratio] 19.8 % High 11.5 - 15.0 % [facility] Hematocrit (Bld) [Volume fraction] 26.7 % Low 40.0 - 52.0 % [facility] Hemoglobin (Bld) [Mass/Vol] 7.3 g/dL Low 13.0 - 18.0 g/dL [facility] Interpretation and review of laboratory results Abnormal [facility] MCH (RBC) [Entitic mass] 20.3 pg Low 26.0 - 34.0 pg [facility] MCHC (RBC) [Mass/Vol] 27.3 % Low 30.5 - 36.0 % [facility] MCV (RBC) [Entitic vol] 74.4 fL Low 77.0 - 99.0 fL [facility] Platelet mean volume (Bld) [Entitic vol] 9.1 fL 9.0 - 12.7 fL [facility] Platelets (Bld) [#/Vol] 423 10*3/uL 140 - 440 10*3/uL [facility] RBC (Bld) [#/Vol] 3.59 10*6/uL Low 4.40 - 5.9 0 10*6/uL [facility] WBC (Bld) [#/Vol] 9.2 10*3/uL 3.6 - 10.7 10*3/uL [facility] COMPREHENSIVE METABOLIC PANE Geoffrey 11-02-2023 Albumin [Mass/Vol] 3.1 g/dL Low 3.5-5.0 [facility] Comment on above: Performed By: #### L [id number] ####Hotel Housekeeper: BARBARA PURDY ([id number])[facility] ([facility])[address] [place] [address] ALP [Catalytic activity/Vol] 82 U/L Normal 38-126 [facility] Comment on above: Performed By: #### L [id number] ####Hotel Housekeeper: BARBARA PURDY ([id number])[facility] ([facility])[address] [place] [address] ALT [Catalytic activity/Vol] 13 U/L Normal 0-49 [facility] Comment on above: Performed By: #### L [id number] ####Hotel Housekeeper: BARBARA PURDY ([id number])[facility] ([facility])[address] [place] [address] Anion gap [Moles/Vol] 5 mmol/L Normal 3-13 [facility] Comment on above: Performed By: #### L [id number] ####Hotel Housekeeper: BARBARA PURDY ([id number])[facility] ([facility])[address] [place] [address] AST [Catalytic activity/Vol] 19 U/L Normal 15-46 [facility] Comment on above: Performed By: #### L [id number] ####Hotel Housekeeper: BARBARA PURDY ([id number])[facility] ([facility])[address] [place] [address] Bilirubin [Mass/Vol] 0.4 mg/dL Normal 0.2-1.3 [facility] Comment on above: Performed By: #### L [id number] ####Hotel Housekeeper: BARBARA PURDY ([id number])[facility] ([facility])[address] [place] [address] Calcium [Mass/Vol] 8.4 mg/dL Normal 8.4-10.4 [facility] Comment on above: Performed By: #### L [id number] ####Hotel Housekeeper: BARBARA PURDY ([id number])[facility] ([facility])[address] [place] [address] [place] Chloride [Moles/Vol] 101 mmol/L Normal 98-107 [facility] Comment on above: Performed By: #### L [id number] ####Hotel Housekeeper: BARBARA PURDY ([id number])[facility] ([facility])[address] [place] [address] [place] CO2 [Moles/Vol] 31 mmol/L High 22-30 [facility] Comment on above: Performed By: #### L [id number] ####Hotel Housekeeper: BARBARA PURDY ([id number])[facility] Creatinine [Mass/Vol] 0.47 mg/dL Low 0.66-1.25 [facility] Comment on above: Performed By: #### L [id number] ####Hotel Housekeeper: BARBARA PURDY ([id number])[facility])[address] [place] [address] GLOMERULAR FILTRATION RATE ML/MIN/1.73 SQ M.PREDICTED >90.0 Normal >60.0 [facility] [facility] Comment on above: Result Comment: Calc ulation based on the Chronic Kidney Disease Epidemiology Collaboration (CKD-EPI) equation refit without adjustment for race Performed By: #### L [id number] ####Hotel Housekeeper: BARBARA PURDY ([phone])[facility])[address] [place] [address] Glucose [Mass/Vol] 146 mg/dL High 70-100 [facility] Comment on above: Performed By: #### L [id number] ####Hotel Housekeeper: BARBARA PURDY ([phone])[facility] ([facility])[address] [place] [address] Potassium [Moles/Vol] 4.2 mmol/L Normal 3.5-5.1 [facility] Comment on above: Performed By: #### L [id number] ####Hotel Housekeeper: BARBARA PURDY ([phone])[facility] ([facility])[address] [place] [address] Protein [Mass/Vol] 6.6 g/dL Normal 6.3-8.2 [facility] Comment on above: Performed By: #### L [id number] ####Hotel Housekeeper: BARBARA PURDY ([phone])[facility])[address] [place] [address] [place] Sodium [Moles/Vol] 137 mmol/L Normal 135-145 [facility] Comment on above: Performed By: #### L [id number] ####Hotel Housekeeper: BARBARA PURDY ([phone])[facility])[address] [place] [address] [place] Urea nitrogen [Mass/Vol] 14 mg/dL Normal 9-20 [facility] Comment on above: Performed By: #### L [id number] ####Hotel Housekeeper: BARBARA PURDY ([phone])[facility] ([address] Comprehensive metabolic 1998 panelon 11-02-2023 Albumin [Mass/Vol] 3.1 g/dL Low 3.5 - 5.0 g/dL [facility] ALP [Catalytic activity/Vol] 82 U/L 38 - 126 U/L [facility] ALT [Catalytic activity/Vol] 13 U/L 0 - 49 U/L [facility] Anion gap [Moles/Vol] 5 mmol/L 3 - 13 mmol/L [facility] AST [Catalytic activity/Vol] 19 U/L 15 - 46 U/L [facility] Bilirubin [Mass/Vol] 0.4 mg/dL 0.2 - 1 .3 mg/dL [facility] Calcium [Mass/Vol] 8.4 mg/dL 8.4 - 10. 4 mg/dL [facility] Chloride [Moles/Vol] 101 mmol/L 98 - 10 7 mmol/L [facility] CO2 [Moles/Vol] 31 mmol/L High 22 - 30 mmol/L [facility] Creatinine [Mass/Vol] 0.47 mg/dL Low 0.66 - 1.25 mg/dL [facility] GFR/1.73 sq M.predicted MDRD (S/P/Bld) [Vol rate/Area] - PINF [facility] Comment on above: Calculation based on the Chronic Kidney Disease Epidemiology Collaboration (CKD-EPI) equation refit without adjustment for race Glucose [Mass/Vol] 146 mg/dL High 70 - 100 mg/dL [facility] Interpretation and review of laboratory results Abnormal [facility] Potassium [Moles/Vol] 4.2 mmol/L 3.5 - 5.1 mmol/L [facility] Protein [Mass/Vol] 6.6 g/dL 6.3 - 8.2 g/dL [facility] Sodium [Moles/Vol] 137 mmol/L 135 - 145 mmol/L [facility] Urea nitrogen [Mass/Vol] 14 mg/dL 9 - 20 mg/dL [facility] Consulton 11-02-2023 Consult ----- ----- Attestation signed by Eagle Currie MD at 12/05/2023 3:29 PM ~~~~~~~~~~~~~~~~~~~~~~~~~ ~~~~~~~~~~~~~~~~~~~~~~~~~ ~~~~~~~~~ Attending physician addendum: I independently saw and evaluated the patient. I personally obtained the fournier and critical portion of the history and physical exam. I reviewed and agree with the documentation below. I personally reviewed patient's labs and imaging studies. My findings agree with the below note except for any details corrected. A complete review of systems was obtained and is negative except as stated in HPII have examined the patient at the date below. Patient Active Problem List Diagnosis Pneumonia, bacterial Aspiration pneumonitis (CMS/HCC) ([facility]) Bilateral pulmonary embolism (HCC) Decubitus ulcer of left ischium, stage 3 ([facility]) Heart failure, unspecified ([facility]) Iron deficiency anemia Morbid obesity ([facility]) BATOOL (obstructive sleep apnea) Osteomyelitis of lumbar spine ([facility]) Paraplegia ([facility]) Pressure injury of left heel, unstageable (HCC) Pressure injury of buttock, unstageable (HCC) Pressure injury of right buttock, stage 4 (HCC) Pressure injury of skin of sacral region Sacral wound Retention of urine, unspecified Spinal stenosis 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 ([facility]) Type 2 diabetes mellitus with hyperglycemia ([facility]) Skin ulcer of multiple sites of lower extremity, limited to breakdown of skin ([facility]) Venous stasis ulcer of lower extremity ([facility]) Wedge compression fracture of t9-t10 vertebra, sequela Acute respiratory failure with hypoxia ([facility]) Obesity, Class III, BMI 40-49.9 (morbid obesity) ([facility]) Type 2 diabetes mellitus (HCC) Lymphedema Hypertension Hemiparesis (CMS/HCC) ([facility]) Chronic anemia Type 2 diabetes mellitus with diabetic polyneuropathy ([facility]) Pressure injury of contiguous region involving back, buttock, and hip, stage 4 (HCC) Spondylolisthesis, lumbar region Per Dr Escoto 's note. Chief complain: drain management A> 58 y.o. male s/p debridement of sacral pressure induced injury with Townshend drain in place P> - wound healing on secondary intention with good granulation - Townshend drain removed, tolerated procedure well - follow up with primary surgeon or in [facility] office - Thank for letting us participate in this patient's care. Please, call with questions Level of Medical Decision Making: risk of morbidity from additional diagnostic testing or treatment due to drain management []High []Moderate [x]Low Personally Reviewed/Independently interpreted patient's: [x]Epic notes [x]Radiology studies [x]Labs []EKG []Ordering tests []Other Discussed/ With: [x]Patient/Family [x]RN []Consultants []SW/TCC []Other I spent total time of >= 45 minutes reviewing previous notes, test results, and face to face with Melissa Elias discussing the diagnosis and importance of compliance with the treatment plan as well as documenting on the day of the visit. Time was spent, Reviewing medical record including recent tests and results Ordering prescription medications/tests and procedures Communicating results to the patient/family/caregiver Counseling/educating the patient/family/caregiver Documenting clinical information the patient's electronic record Coordination of care for the patient Performing a medical appropriate exam and evaluation Percy Currie MD FACS Trauma, Surgical Critical Care, & General Surgery Division of Trauma Department of Surgery [facility] P ----- Department of General Surgery Surgical Service - [facility] Resident Consult Note 11/02/2023 CHIEF COMPLAINT: No chief complaint on file. Reason for Consult: HISTORY OF PRESENT ILLNESS: Melissa Elias is a 58 y.o. male with significant past medical history of disease, paraplegia, obstructive sleep apnea, history of amy Alfaro who presented on 6/13 with chief complaint of healthcare acquired pneumonia, CAUTI w ESBL. Surgery was consulted for evaluation of removal of gluteal drain. Patient was transferred from [facility] for evaluation by cardiothoracic surgery for loculated effusions patient was admitted to the medical serviceAnd continued on vancomycin and meropenem. Currently on eliquis. Per care everywhere, patient underwent debridement of infected sacral ulcer on 08/03/2023 at [facility]. Notably on other notes to his possible exposure of the lowest screw in the right iliac bone. Patient was admitted from 07/29 to 08/11. Finding was large pressure ulcer at base of sacrum approximately 15 x 15 cm. It was noted that patient had wound that tunneled to the left buttock, so a nagi was placed via counter incision Patient states that he has (more content not included)... [facility] IDNon 11-02-2023 IDN Problem: Knowledge Deficit Goal: Patient/family/caregiver demonstrates understanding of disease process, treatment plan, medications, and discharge instructions 11/02/2023 1318 by Madina Ballard RN Outcome: Progressing Flowsheets (Taken 11/02/2023 1243) Patient/family/caregiver demonstrates understanding of disease process, treatment plan, medications, and discharge instructions: Complete learning assessment and assess knowledge base Provide teaching at level of understanding Provide teaching via preferred learning methods 11/02/2023 1243 by Madina Ballard RN Outcome: Progressing Flowsheets (Taken 11/02/2023 1243) Patient/family/caregiver demonstrates understanding of disease process, treatment plan, medications, and discharge instructions: Complete learning assessment and assess knowledge base Provide teaching at level of understanding Provide teaching via preferred learning methods Problem: Potential for Compromised Skin Integrity Goal: Skin Integrity is Maintained or Improved 11/02/2023 1318 by Madina Ballard RN Outcome: Progressing Flowsheets (Taken 11/02/2023 1243) Skin integrity is maintained or improved: Assess and monitor skin integrity Collaborate with interdisciplinary team and initiate plans and interventions as needed Identify patients at risk for skin breakdown on admission and per policy Turn patient Avoid shearing Relieve pressure to bony prominences Keep skin clean and dry Alternate a full bath with partial baths for elderly 11/02/2023 1243 by Madina Ballard RN Outcome: Progressing Flowsheets (Taken 11/02/2023 1243) Skin integrity is maintained or improved: Assess and monitor skin integrity Collaborate with interdisciplinary team and initiate plans and interventions as needed Identify patients at risk for skin breakdown on admission and per policy Turn patient Avoid shearing Relieve pressure to bony prominences Keep skin clean and dry Alternate a full bath with partial baths for elderly Normal [facility] IDN Problem: Knowledge Deficit Goal: Patient/family/caregiver demonstrates understanding of disease process, treatment plan, medications, and discharge instructions Outcome: Progressing Flowsheets (Taken 11/02/2023 1243) Patient/family/caregiver demonstrates understanding of disease process, treatment plan, medications, and discharge instructions: Complete learning assessment and assess knowledge base Provide teaching at level of understanding Provide teaching via preferred learning methods Problem: Potential for Compromised Skin Integrity Goal: Skin Integrity is Maintained or Improved Outcome: Progressing Flowsheets (Taken 11/02/2023 1243) Skin integrity is maintained or improved: Assess and monitor skin integrity Collaborate with interdisciplinary team and initiate plans and interventions as needed Identify patients at risk for skin breakdown on admission and per policy Turn patient Avoid shearing Relieve pressure to bony prominences Keep skin clean and dry Alternate a full bath with partial baths for elderly Normal [facility] Laboratory - Chemistry and C hemistry - challengeon 11-02-2023 Glucose [Mass/Vol] 150 mg/dL High 70 - 100 mg/dL [facility] Glucose [Mass/Vol] 235 mg/dL High 70 - 100 mg/dL [facility] Glucose [Mass/Vol] 219 mg/dL High 70 - 100 mg/dL [facility] Glucose [Mass/Vol] 148 mg/dL High 70 - 100 mg/dL [facility] No Panel Informationon 11-01 Interpretation and review of laboratory results Abnormal [facility] Performed by: [facility], [address] [place] [address] CLIA ID: [id number] [facility] [employer] [facility] Interpretation and review of laboratory results Abnormal [facility] Performed by: [facility] [employer], [address] [place] [address] CLIA ID: [id number] [facility] Interpretation and review of laboratory results Abnormal [facility] Performed by: [facility], [address] [place] [address] CLIA ID: [id number] [facility] Interpretation and review of laboratory results Abnormal [facility] Performed by: [facility], [address] [place], [place] [id number] CLIA ID: [id number] [facility] Radiology Study observation (narrative) [facility] Radiology Study observation (narrative) [facility] Radiology Study observation (narrative) [facility] Radiology Study observation (narrative) [facility] Progress Noteon 11-02-2023 Progress Note PHYSICAL THERAPY [facility] Treatment Note Name/MRN: Melissa Elias ([id number]) Date of : 1965 Age: 58 y.o. Room/Bed: W5528/W5528 A Discharge Recommendation: Usp Facility Equipment Needed: No Other: TBD Prior Level of Function ADL Assistance: Needs Assist Ambulation Assistance: Needs Assistance Transfer Assistance: Needs Assist Assessment Pt is progressing with bed mobility goal showing increased use of UE to pull self this date. Pt still requires a Max X2 assist for rolling but was able to support self when laying on his side. RN was able to perform wound care during bed mobility. Pt has deficits in strength, endurance, and tolerance to exercise. Pt would benefit from skilled therapy to address these deficits and improve functional mobility. PT recommends discharge to a SNF. Subjective Pt was in bed and agreeable to PT. Pain: Pt denies any current pain. Medical Precautions: Contact Proper PPE donned/doffed in accordance with facility standards. Fall Risk: Sarabia Fall Risk Score: 35 (Medium Risk) Precautions/Restrictions: contact precautions Lines/Drains/Airways: 4 Liters O2 via NC, tele, IV, FC Overall Cognitive Status: WNL Overall Orientation Status: Oriented x4 Family/Caregiver Present: none Objective Bed Mobility Supine to sit: Max Assist, x2 Person Assist Sit to supine: Max Assist, x2 Person Assist Plan Continue acute PT per plan of care. Safety/Education Safety Safety Devices in place: call light within reach, left in bed, and nurse notified Restraints: No Education Education Given To: patient Education Provided: PT Role, PT Goals, Gait Training, and Plan of Care Education Method: Verbal Barriers to Learning: None Education Outcome: Verbalized Understanding Outcome Measures AM-PAC AM-PAC Inpatient Mobility Raw Score (No Stairs) : 7 JH-HLM JH-HLM Score: Bed activity Goals Patient Stated Goal: To feel better. Encounter Problems Encounter Problems (Active) Balance Patient will maintain static sitting balance for 2 minutes with max assist in order to demonstrate improved postural control and prepare for out of bed mobility. (Progressing) Start: 10/31/23 Expected End: 11/14/23 Transfers Patient will perform bed mobility with max assist in order to improve independence and prepare for out of bed mobility. (Progressing) Start: 10/31/23 Expected End: 11/14/23 Patient will complete functional transfer with least restrictive device with max assist in order to prepare for ambulation. (Progressing) Start: 10/31/23 Expected End: 11/14/23 Therapy Time Individual Co-treatment Time In 1353 Time Out 1424 Minutes 31 Timed Code Treatment Minutes: 21 Minutes Variance: 10 (Wound Care) Palmira Marc [facility] XR CHEST 1 VIEWon 11-02-2023 XR CHEST 1 VIEW Patient Name: MELISSA DU : 1965 Exam Date/Time: 11/02/2023 06:49 Procedure: XR CHEST 1 VIEW Ordering Provider: ROCKWELL HARIKRISHNA Reason For Exam: Bilateral infiltrates and effusion AP CHEST X-RAY CLINICAL INDICATION: Bilateral infiltrates and effusion TECHNIQUE: AP portable x-ray of the chest. COMPARISON: 11/01/2023 FINDINGS: Limitations: Underpenetration, low lung volumes, rotation and supine portable technique Lines/Tubes: Stable right PICC line Heart/Mediastinum: Indeterminate Lungs: Right pleural effusion and bibasilar atelectasis. No obvious pneumothorax. Bones: Spinal fusion hardware IMPRESSION: Very limited study. No significant interval change. Report Dictated on Electronically Signed By: Ellyn Bergeron MD Electronically Signed Date/Time: 11/02/2023 12:[address] [facility] XR Chest Single viewon 11-01 Very limited study. No significant interval change. Report Dictated on Electronically Signed By: Ellyn Bergeron MD Electronically Signed Date/Time: 11/02/2023 12:48 PM EDT [facility] Patient Name: MELISSA DU : 1965 Exam Date/Time: 11/02/2023 06:49 Procedure: XR CHEST 1 VIEW Ordering Provider: ROCKWELL HARIKRISHNA Reason For Exam: Bilateral infiltrates and effusion AP CHEST X-RAY CLINICAL INDICATION: Bilateral infiltrates and effusion TECHNIQUE: AP portable x-ray of the chest. COMPARISON: 11/01/2023 FINDINGS: Limitations: Underpenetration, low lung volumes, rotation and supine portable technique Lines/Tubes: Stable right PICC line Heart/Mediastinum: Indeterminate Lungs: Right pleural effusion and bibasilar atelectasis. No obvious pneumothorax. Bones: Spinal fusion hardware [facility] Ellyn Bergeron M D - 11/02/2023 [facility]: [facility] 1965 [id number] Exam Date/Time: 11/02/2023 06:49 Procedure: XR CHEST 1 VIEW Ordering Provider: ROCKWELL HARIKRISHNA Reason For Exam: Bilateral infiltrates and effusion AP CHEST X-RAY CLINICAL INDICATION: Bilateral infiltrates and effusion TECHNIQUE: AP portable x-ray of the chest. COMPARISON: 11/01/2023 FINDINGS: Limitations: Underpenetration, low lung volumes, rotation and supine portable technique Lines/Tubes: Stable right PICC line Heart/Mediastinum: Indeterminate Lungs: Right pleural effusion and bibasilar atelectasis. No obvious pneumothorax. Bones: Spinal fusion hardware IMPRESSION: Very limited study. No significant interval change. Report Dictated on Electronically Signed By: Ellyn Bergeron MD Electronically Signed Date/Time: 11/02/2023 12:48 PM EDT [facility] Radiology Study observation (narrative) [facility] 36on 11-01-2023 36 Patient remains hospitalized. No follow up appointment needed. Await discharge plans. [facility] [place] 11-01-2023 [place] Updated notes placed to [facility] via [facility] per [facility] request. Await review and response regarding ability to accept. TCC notified. Normal [facility] CBC (HEMOGRAM)on 11-01-2023 Erythrocyte distribution width (RBC) [Ratio] 19.9 % High 11.5-15.0 [facility] Comment on above: Performed By: #### L [id number] ####Hotel Housekeeper: BARBARA PURDY ([phone])[facility])[address] [place] [address] Hematocrit (Bld) [Volume fraction] 26.9 % Low 40.0-52.0 [facility] Comment on above: Performed By: #### L [id number] ####Hotel Housekeeper: BARBARA PURDY ([phone])[facility])[address] [place] [address] Hemoglobin (Bld) [Mass/Vol] 7.3 g/dL Low 13.0-18.0 [facility] Comment on above: Performed By: #### L [id number] ####Hotel Housekeeper: BARBARA PURDY ([phone])[facility] ([facility])[address] [place] [address] MCH (RBC) [Entitic mass] 20.1 pg Low 26.0-34.0 [facility] Comment on above: Performed By: #### L [id number] ####Hotel Housekeeper: BARBARA PURDY ([phone])[facility])[address] [place] [address] MCHC 27.1 % Low 30.5-36.0 [facility] Comment on above: Performed By: #### L [id number] ####Hotel Housekeeper: BARBARA PURDY ([phone])[facility] ([facility])[address] [place] [address] MCV (RBC) [Entitic vol] 74.1 fL Low 77.0-99.0 [facility] Comment on above: Performed By: #### L [id number] ####Hotel Housekeeper: BARBARA PURDY ([phone])[facility])[address] [place] [address] Platelet mean volume (Bld) [Entitic vol] 8.9 fL Low 9.0-12.7 [facility] Comment on above: Performed By: #### L [id number] ####Hotel Housekeeper: BARBARA PURDY ([phone])[facility] ([facility])[address] [place] [address] Platelets (Bld) [#/Vol] 467 10*3/uL High 140-440 [facility] Comment on above: Performed By: #### L [id number] ####Hotel Housekeeper: BARBARA PURDY ([phone])[facility] ([facility])[address] [place] [address] RBC (Bld) [#/Vol] 3.63 10*6/uL Low 4.40-5.90 [facility] Comment on above: Performed By: #### L [id number] ####Hotel Housekeeper: BARBARA PURDY ([phone])[facility] ([facility])[address] [place] [address] WBC (Bld) [#/Vol] 11.3 10*3/uL High 3.6-10.7 [facility] Comment on above: Performed By: #### L [id number] ####Hotel Housekeeper: BARBARA PURDY ([phone])[facility] ([facility])[address] [place] [address] CBC panel Auto (Bld)on 10-31 Erythrocyte distribution width (RBC) [Ratio] 19.9 % High 11.5 - 15.0 % [facility] Hematocrit (Bld) [Volume fraction] 26.9 % Low 40.0 - 52.0 % [facility] Hemoglobin (Bld) [Mass/Vol] 7.3 g/dL Low 13.0 - 18.0 g/dL [facility] Interpretation and review of laboratory results Abnormal [facility] MCH (RBC) [Entitic mass] 20.1 pg Low 26.0 - 34.0 pg [facility] MCHC (RBC) [Mass/Vol] 27.1 % Low 30.5 - 36.0 % [facility] MCV (RBC) [Entitic vol] 74.1 fL Low 77.0 - 99.0 fL [facility] Platelet mean volume (Bld) [Entitic vol] 8.9 fL Low 9.0 - 12.7 fL [facility] Platelets (Bld) [#/Vol] 467 10*3/uL High 140 - 440 10*3/uL [facility] RBC (Bld) [#/Vol] 3.63 10*6/uL Low 4.40 - 5.9 0 10*6/uL [facility] WBC (Bld) [#/Vol] 11.3 10*3/uL High 3.6 - 10.7 10*3/uL [facility] COMPREHENSIVE METABOLIC PANE Geoffrey 11-01-2023 Albumin [Mass/Vol] 3.1 g/dL Low 3.5-5.0 [facility] Comment on above: Performed By: #### L [id number] ####Hotel Housekeeper: BARBARA PURDY ([phone])[facility] ([facility])[address] [place] [address] ALP [Catalytic activity/Vol] 84 U/L Normal 38-126 [facility] Comment on above: Performed By: #### L [id number] ####Hotel Housekeeper: BARBARA PURDY ([phone])[facility] ([facility])[address] [place] [address] ALT [Catalytic activity/Vol] 13 U/L Normal 0-49 [facility] Comment on above: Performed By: #### L [id number] ####Hotel Housekeeper: BARBARA PURDY ([phone])[facility] ([facility])[address] [place] [address] Anion gap [Moles/Vol] 3 mmol/L Normal 3-13 [facility] Comment on above: Performed By: #### L [id number] ####Hotel Housekeeper: BARBARA PURDY ([id number])[facility] ([facility])[address] [place] [address] AST [Catalytic activity/Vol] 23 U/L Normal 15-46 [facility] Comment on above: Performed By: #### L [id number] ####Hotel Housekeeper: BARBARA PURDY ([phone])[facility])[address] [place] [address] Bilirubin [Mass/Vol] 0.5 mg/dL Normal 0.2-1.3 [facility] Comment on above: Performed By: #### L [id number] ####Hotel Housekeeper: BARBARA PURDY ([phone])[facility] ([facility])[address] [place] [address] Calcium [Mass/Vol] 8.1 mg/dL Low 8.4-10.4 [facility] Comment on above: Performed By: #### L [id number] ####Hotel Housekeeper: BARBARA PURDY ([id number])[facility] ([facility])[address] [place] [address] Chloride [Moles/Vol] 101 mmol/L Normal 98-107 [facility] Comment on above: Performed By: #### L [id number] ####Hotel Housekeeper: BARBARA PURDY ([phone])[facility] ([facility])[address] [place] [address] CO2 [Moles/Vol] 31 mmol/L High 22-30 [facility] Comment on above: Performed By: #### L [id number] ####Hotel Housekeeper: BARBARA PURDY ([phone])[facility])[address] [place] [address] Creatinine [Mass/Vol] 0.53 mg/dL Low 0.66-1.25 [facility] Comment on above: Performed By: #### L [id number] ####Hotel Housekeeper: BARBARA PURDY ([phone])[facility])[address] [place] [address] GLOMERULAR FILTRATION RATE ML/MIN/1.73 SQ M.PREDICTED >90.0 Normal >60.0 [facility] Comment on above: Result Comment: Calc ulation based on the Chronic Kidney Disease Epidemiology Collaboration (CKD-EPI) equation refit without adjustment for race Performed By: #### L [id number] ####Hotel Housekeeper: BARBARA PURDY ([phone])[facility] ([facility])[address] [place] [address] Glucose [Mass/Vol] 167 mg/dL High 70-100 [facility] Comment on above: Performed By: #### L [id number] ####Hotel Housekeeper: BARBARA PURDY ([id number])[facility])[address] [place] [address] Potassium [Moles/Vol] 4.0 mmol/L Normal 3.5-5.1 [facility] Comment on above: Performed By: #### L AB17 ####Hotel Housekeeper: BARBARA PURDY ([id number])[facility] ([facility])[address] [place] [address] Protein [Mass/Vol] 6.4 g/dL Normal 6.3-8.2 [facility] Comment on above: Performed By: #### L AB17 ####Hotel Housekeeper: BARBARA PURDY ([phone])[facility] ([facility])[address] [place] [address] Sodium [Moles/Vol] 136 mmol/L Normal 135-145 [facility] Comment on above: Performed By: #### L [id number] ####Hotel Housekeeper: BARBARA PURDY ([id number])[facility] ([facility])[address] [place] [address] Urea nitrogen [Mass/Vol] 11 mg/dL Normal 9-20 [facility] Comment on above: Performed By: #### L [id number] ####Hotel Housekeeper: BARBARA PURDY ([phone])[facility])[address] [place] [address] Comprehensive metabolic 1998 panelon 11-01-2023 Albumin [Mass/Vol] 3.1 g/dL Low 3.5 - 5.0 g/dL [facility] ALP [Catalytic activity/Vol] 84 U/L 38 - 126 U/L [facility] ALT [Catalytic activity/Vol] 13 U/L 0 - 49 U/L [facility] Anion gap [Moles/Vol] 3 mmol/L 3 - 13 mmol/L [facility] AST [Catalytic activity/Vol] 23 U/L 15 - 46 U/L [facility] Bilirubin [Mass/Vol] 0.5 mg/dL 0.2 - 1 .3 mg/dL [facility] Calcium [Mass/Vol] 8.1 mg/dL Low 8.4 - 10. 4 mg/dL [facility] Chloride [Moles/Vol] 101 mmol/L 98 - 10 7 mmol/L [facility] CO2 [Moles/Vol] 31 mmol/L High 22 - 30 mmol/L [facility] Creatinine [Mass/Vol] 0.53 mg/dL Low 0.66 - 1.25 mg/dL [facility] GFR/1.73 sq M.predicted MDRD (S/P/Bld) [Vol rate/Area] - PINF [facility] Comment on above: Calculation based on the Chronic Kidney Disease Epidemiology Collaboration (CKD-EPI) equation refit without adjustment for race Glucose [Mass/Vol] 167 mg/dL High 70 - 100 mg/dL [facility] Interpretation and review of laboratory results Abnormal [facility] Potassium [Moles/Vol] 4.0 mmol/L 3.5 - 5.1 mmol/L [facility] Protein [Mass/Vol] 6.4 g/dL 6.3 - 8.2 g/dL [facility] Sodium [Moles/Vol] 136 mmol/L 135 - 145 mmol/L [facility] Urea nitrogen [Mass/Vol] 11 mg/dL 9 - 20 mg/dL [facility] IDNon 11-01-2023 IDN Patient verbalized understanding of evening scheduled and prn medications. He verbalized schedule of prn medications for this shift. Skin Integrity maintained. He denies nausea, reports adequate appetite. Perineal skin maintained. Vitals stable, urine clear yellow. Patient repositioning encouraged. Normal [facility] Laboratory - Chemistry and C hemistry - challengeon 11-01-2023 Glucose [Mass/Vol] 210 mg/dL High 70 - 100 mg/dL [facility] Glucose [Mass/Vol] 183 mg/dL High 70 - 100 mg/dL [facility] Glucose [Mass/Vol] 252 mg/dL High 70 - 100 mg/dL [facility] Glucose [Mass/Vol] 138 mg/dL High 70 - 100 mg/dL [facility] No Panel Informationon 10-31 Interpretation and review of laboratory results Abnormal [facility] Performed by: [facility], [address] [place] [address] CLIA ID: [id number] [facility] Interpretation and review of laboratory results Abnormal [facility] Performed by: [facility], [address] [place] [address] CLIA ID: [id number] [facility] Interpretation and review of laboratory results Abnormal [facility] Performed by: [facility], [address] [place] [address] CLIA ID: [id number] [facility] Interpretation and review of laboratory results Abnormal [facility] Performed by: [facility], [address] [place] [address] CLIA ID: [id number] [facility] Radiology Study observation (narrative) [facility] Radiology Study observation (narrative) [facility] Radiology Study observation (narrative) [facility] Radiology Study observation (narrative) [facility] Nursing Noteon 11-01-2023 Nursing Note Patient awake, watch ing TV. Tele monitor leads off, and fixed. He is resting and refused turn at this time, states we can turn him next time. Safety measures maintained. Continuous tele monitoring in progress. Respers easy. No acute distress. Will continue with plan of care. Normal [facility] Nursing Note Chronic bartlett in cameron ce. RN order to remove via protocol. Provider notified. Bartlett to remain in place due to chronic reasons. Normal [facility] XR CHEST 1 VIEWon 11-01-2023 XR CHEST 1 VIEW [facility] 1965 [id number] Exam Date/Time: 11/01/2023 07:36 Procedure: XR CHEST 1 VIEW Ordering Provider: ROCKWELL HARIKRISHNA Reason For Exam: Bilateral infiltrates and effusion CLINICAL INFORMATION: Shortness of breath. Bilateral infiltrates. Pleural effusion. Portable view of the chest at 0620 hours is provided and compared to a previous study dated October 31, 2023. FINDINGS: A PICC line is in place via the right arm. The distal tip is in the superior vena cava. Gan rods span the thoracolumbar junction. The cardiac silhouette and mediastinum are otherwise unremarkable. And infiltrate and effusion have worsened in the right lung base. There is prominence of the central pulmonary vasculature. IMPRESSION: 1. Mild progression of right lower lobe infiltrate and effusion. 2. Prominence of the central pulmonary vasculature consistent with moderate congestive heart failure/fluid overload. Report Dictated on Electronically Signed By: Raphael Gonzales MD Electronically Signed Date/Time: 11/01/2023 8:26 AM EDT [facility] XR Chest Single viewon 10-31 Patient Name: MELISSA DU : 1965 Exam Date/Time: 11/01/2023 07:36 Procedure: XR CHEST 1 VIEW Ordering Provider: ROCKWELL HARIKRISHNA Reason For Exam: Bilateral infiltrates and effusion CLINICAL INFORMATION: Shortness of breath. Bilateral infiltrates. Pleural effusion. Portable view of the chest at 0620 hours is provided and compared to a previous study dated October 31, 2023. FINDINGS: A PICC line is in place via the right arm. The distal tip is in the superior vena cava. Gan rods span the thoracolumbar junction. The cardiac silhouette and mediastinum are otherwise unremarkable. And infiltrate and effusion have worsened in the right lung base. There is prominence of the central pulmonary vasculature. [facility] Raphael Gonzales MD - 11/01/2023 Patient Name: MELISSA ELIAS : 1965 Exam Date/Time: 11/01/2023 07:36 Procedure: XR CHEST 1 VIEW Ordering Provider: ROCKWELL HARIKRISHNA Reason For Exam: Bilateral infiltrates and effusion CLINICAL INFORMATION: Shortness of breath. Bilateral infiltrates. Pleural effusion. Portable view of the chest at 0620 hours is provided and compared to a previous study dated October 31, 2023. FINDINGS: A PICC line is in place via the right arm. The distal tip is in the superior vena cava. Gan rods span the thoracolumbar junction. The cardiac silhouette and mediastinum are otherwise unremarkable. And infiltrate and effusion have worsened in the right lung base. There is prominence of the central pulmonary vasculature. IMPRESSION: 1. Mild progression of right lower lobe infiltrate and effusion. 2. Prominence of the central pulmonary vasculature consistent with moderate congestive heart failure/fluid overload. Report Dictated on Electronically Signed By: Raphael Gonzales MD Electronically Signed Date/Time: 11/01/2023 8:26 AM EDT [facility] Rad[facility]narrative[facility] Received return call from Mother Marci and updated her on status and return to [facility]. Normal [facility] SW following with ZACK Gutierrez for return to [facility]. Normal [facility] Care Managment Initi al Assessment Date: 10/31/2023 Patient Name: Melissa Elias : 1965 Patient Information Source of Information: Patient Cognition/Language: WFL - Within Functional Limits Permission given to speak with patient guest services representative/caregiver as indicated: Yes Confirmation of Payer with patient/family: Yes Payer Name: [employer] : Confirmation of Primary Care Physician: Confirmed PCP Name: Dr. Bartlett Seen in last 2 years?: Yes Primary Caregiver: (Facility) If assistance needed, confirmed caregiver ready, willing and able to care for patient at discharge: Confirmed with: Living Arrangements Current Residence: Number of Floors Number of Entry Steps: Bed/Bath Levels: Facility: Nursing Facility Skilled Facility Name: [facility] Sharan Plan to Return: Yes Lives with: Alone Support Systems: Parent, horse show manager/social work administrator (Staff) Activities of Daily Living Ambulation: Assistance Bathing/Dressing: Assistance Elimination/Continence/To ileting: Assistance Feeding: Assistance Who Assists with Activities of Daily Living: Instrumental Activities of Daily Living Prescription Coverage: Yes Pharmacy Used: Facility Medication Management: Assistance Type: Dose packaging system Who assists with medication securing and setup?: Staff Transportation/Shopping: Transportation Mode: Needs Assistance with Transportation at Discharge: Meal Preparation: Assistance Provider Meal Prep Assistance Provider Name: Facility Laundry/Cleaning: Assistance Provider Laundry/Cleaning Assistance Provider Name: Facility Finances/Bill Paying: Independent Communication: Independent Types of Care Services/Equipment Utilized Care Services: Dialysis Type: NA Durable Medical Equipment: Wheelchair (standard or power) Patient's Goal/Discharge Plan Patient expects to be discharged to: Return to [facility] Discharge Planning Actions: Continue to follow Patient's Choice Rights and [employer] and Collaborative Relationships Disclosed as Indicated for Post-Acute Care: Interdisciplinary Team Engagement: Social Work Referral for: Additional Information: Confirmed with patient discharge plan return to [facility]. Taina Prieto RN Normal [facility] CBC (HEMOGRAM)on 10-31-2023 Erythrocyte distribution width (RBC) [Ratio] 19.9 % High 11.5-15.0 [facility] Comment on above: Performed By: #### L [id number] ####Hotel Housekeeper: BARBARA PURDY ([id number])[address] Hematocrit (Bld) [Volume fraction] 28.4 % Low 40.0-52.0 [facility] Comment on above: Performed By: #### L [id number] ####Hotel Housekeeper: BARBARA PURDY ([phone])[address] Hemoglobin (Bld) [Mass/Vol] 7.7 g/dL Low 13.0-18.0 [facility] Comment on above: Performed By: #### L [id number] ####Hotel Housekeeper: BARBARA PURDY ([phone])[address] MCH (RBC) [Entitic mass] 20.3 pg Low 26.0-34.0 [facility] Comment on above: Performed By: #### L [id number] ####Hotel Housekeeper: BARBARA PURDY ([id number])[address] MCHC 27.1 % Low 30.5-36.0 [facility] Comment on above: Performed By: #### L [id number] ####Hotel Housekeeper: BARBARA PURDY ([phone])[facility] ([facility])[address] [place] [address] MCV (RBC) [Entitic vol] 74.7 fL Low 77.0-99.0 [facility] Comment on above: Performed By: #### L [id number] ####Hotel Housekeeper: BARBARA PURDY ([phone])[facility])[address] [place] [address] Platelet mean volume (Bld) [Entitic vol] 9.1 fL Normal 9.0-12.7 [facility] Comment on above: Performed By: #### L [id number] ####Hotel Housekeeper: BARBARA PURDY ([phone])[facility])[address] [place] [address] Platelets (Bld) [#/Vol] 486 10*3/uL High 140-440 [facility] Comment on above: Performed By: #### L [id number] ####Hotel Housekeeper: BARBARA PURDY ([phone])[facility])[address] [place] [address] RBC (Bld) [#/Vol] 3.80 10*6/uL Low 4.40-5.90 [facility] Comment on above: Performed By: #### L [id number] ####Hotel Housekeeper: BARBARA PURDY ([phone])[facility])[address] [place] [address] WBC (Bld) [#/Vol] 9.3 10*3/uL Normal 3.6-10.7 [facility] Comment on above: Performed By: #### L [id number] ####Hotel Housekeeper: BARBARA PURDY ([phone])[facility])[address] [place] [address] CBC panel Auto (Bld)on 10-30 Erythrocyte distribution width (RBC) [Ratio] 19.9 % High 11.5 - 15.0 % [facility] Hematocrit (Bld) [Volume fraction] 28.4 % Low 40.0 - 52.0 % [facility] Hemoglobin (Bld) [Mass/Vol] 7.7 g/dL Low 13.0 - 18.0 g/dL [facility] Interpretation and review of laboratory results Abnormal [facility] MCH (RBC) [Entitic mass] 20.3 pg Low 26.0 - 34.0 pg [facility] MCHC (RBC) [Mass/Vol] 27.1 % Low 30.5 - 36.0 % [facility] MCV (RBC) [Entitic vol] 74.7 fL Low 77.0 - 99.0 fL [facility] Platelet mean volume (Bld) [Entitic vol] 9.1 fL 9.0 - 12.7 fL [facility] Platelets (Bld) [#/Vol] 486 10*3/uL High 140 - 440 10*3/uL [facility] RBC (Bld) [#/Vol] 3.80 10*6/uL Low 4.40 - 5.9 0 10*6/uL [facility] WBC (Bld) [#/Vol] 9.3 10*3/uL 3.6 - 10.7 10*3/uL [facility] COMPREHENSIVE METABOLIC PANE Geoffrey 10-31-2023 Albumin [Mass/Vol] 3.1 g/dL Low 3.5-5.0 [facility] Comment on above: Performed By: #### L [id number] ####Hotel Housekeeper: BARBARA PURDY ([phone])[facility])[address] [place] [address] ALP [Catalytic activity/Vol] 87 U/L Normal 38-126 [facility] Comment on above: Performed By: #### L [id number] ####Hotel Housekeeper: BARBARA PURDY ([id number])[facility] ([facility])[address] [place] [address] ALT [Catalytic activity/Vol] 14 U/L Normal 0-49 [facility] Comment on above: Performed By: #### L [id number] ####Hotel Housekeeper: BARBARA PURDY ([id number])[facility] ([facility])[address] [place] [address] Anion gap [Moles/Vol] 5 mmol/L Normal 3-13 [facility] Comment on above: Performed By: #### L [id number] ####Hotel Housekeeper: BARBARA PURDY ([phone])[facility] ([facility])[address] [place] [address] AST [Catalytic activity/Vol] 19 U/L Normal 15-46 [facility] Comment on above: Performed By: #### L [id number] ####Hotel Housekeeper: BARBARA PURDY ([id number])[facility] ([facility])[address] [place] [address] Bilirubin [Mass/Vol] 0.3 mg/dL Normal 0.2-1.3 [facility] Comment on above: Performed By: #### L [id number] ####Hotel Housekeeper: BARBARA PURDY ([phone])[facility] ([facility])[address] [place] [address] Calcium [Mass/Vol] 8.3 mg/dL Low 8.4-10.4 [facility] Comment on above: Performed By: #### L [id number] ####Hotel Housekeeper: BARBARA PURDY ([phone])[facility] ([facility])[address] [place] [address] [place] Chloride [Moles/Vol] 102 mmol/L Normal 98-107 [facility] Comment on above: Performed By: #### L [id number] ####Hotel Housekeeper: BARBARA PURDY ([phone])[facility] ([facility])[address] [place] [address] [place] CO2 [Moles/Vol] 29 mmol/L Normal 22-30 [facility] Comment on above: Performed By: #### L [id number] ####Hotel Housekeeper: BARBARA PURDY ([id number])[facility] ([facility])[address] [place] [address] Creatinine [Mass/Vol] 0.60 mg/dL Low 0.66-1.25 [facility] Comment on above: Performed By: #### L [id number] ####Hotel Housekeeper: BARBARA PURDY ([phone])[facility] ([facility])[address] [place] [address] [place] GLOMERULAR FILTRATION RATE ML/MIN/1.73 SQ M.PREDICTED >90.0 Normal >60.0 [facility] Comment on above: Result Comment: Calc ulation based on the Chronic Kidney Disease Epidemiology Collaboration (CKD-EPI) equation refit without adjustment for race Performed By: #### L [id number] ####Hotel Housekeeper: BARBARA PURDY ([id number])[facility] ([facility])[address] [place] [address] Glucose [Mass/Vol] 207 mg/dL High 70-100 [facility] Comment on above: Performed By: #### L [id number] ####Hotel Housekeeper: BARBARA PURDY ([phone])[facility] ([facility])[address] [place] [address] Potassium [Moles/Vol] 3.9 mmol/L Normal 3.5-5.1 [facility] Comment on above: Performed By: #### L AB17 ####Hotel Housekeeper: BARBARA PURDY ([id number])[facility] ([facility])[address] [place] [address] Protein [Mass/Vol] 6.5 g/dL Normal 6.3-8.2 [facility] Comment on above: Performed By: #### L [id number] ####Hotel Housekeeper: BARBARA PURDY ([id number])[facility] ([facility])[address] [place] [address] Sodium [Moles/Vol] 136 mmol/L Normal 135-145 [facility] Comment on above: Performed By: #### L [id number] ####Hotel Housekeeper: BARBARA PURDY ([phone])[facility])[address] [place] [address] [place] Urea nitrogen [Mass/Vol] 12 mg/dL Normal 9-20 [facility] Comment on above: Performed By: #### L [id number] ####Hotel Housekeeper: BARBARA PURDY ([id number])[facility] ([facility])[address] [place] [address] Comprehensive metabolic 1998 panelon 10-31-2023 Albumin [Mass/Vol] 3.1 g/dL Low 3.5 - 5.0 g/dL [facility] ALP [Catalytic activity/Vol] 87 U/L 38 - 126 U/L [facility] ALT [Catalytic activity/Vol] 14 U/L 0 - 49 U/L [facility] Anion gap [Moles/Vol] 5 mmol/L 3 - 13 mmol/L [facility] AST [Catalytic activity/Vol] 19 U/L 15 - 46 U/L [facility] Bilirubin [Mass/Vol] 0.3 mg/dL 0.2 - 1 .3 mg/dL [facility] Calcium [Mass/Vol] 8.3 mg/dL Low 8.4 - 10. 4 mg/dL [facility] Chloride [Moles/Vol] 102 mmol/L 98 - 10 7 mmol/L [facility] CO2 [Moles/Vol] 29 mmol/L 22 - 30 mmol/L [facility] Creatinine [Mass/Vol] 0.60 mg/dL Low 0.66 - 1.25 mg/dL [facility] GFR/1.73 sq M.predicted MDRD (S/P/Bld) [Vol rate/Area] - PINF [facility] Comment on above: Calculation based on the Chronic Kidney Disease Epidemiology Collaboration (CKD-EPI) equation refit without adjustment for race Glucose [Mass/Vol] 207 mg/dL High 70 - 100 mg/dL [facility] Interpretation and review of laboratory results Abnormal [facility] Potassium [Moles/Vol] 3.9 mmol/L 3.5 - 5.1 mmol/L [facility] Protein [Mass/Vol] 6.5 g/dL 6.3 - 8.2 g/dL [facility] Sodium [Moles/Vol] 136 mmol/L 135 - 145 mmol/L [facility] Urea nitrogen [Mass/Vol] 12 mg/dL 9 - 20 mg/dL [facility] Laboratory - Chemistry and C hemistry - challengeon 10-31-2023 Glucose [Mass/Vol] 149 mg/dL High 70 - 100 mg/dL [facility] Glucose [Mass/Vol] 175 mg/dL High 70 - 100 mg/dL [facility] Glucose [Mass/Vol] 194 mg/dL High 70 - 100 mg/dL [facility] Glucose [Mass/Vol] 145 mg/dL High 70 - 100 mg/dL [facility] No Panel Informationon 10-30 Interpretation and review of laboratory results Abnormal [facility] Center Performed by: [facility], [address] [place] [address] CLIA ID: [id number] [facility] Interpretation and review of laboratory results Abnormal [facility] Performed by: [facility], [address] [place] [id number] CLIA ID: [id number] [facility] ESHA Jones RN - WATER REUSE PROGRAM MANAGER 10/31/2023 4:52 PM PICC Insertion/Replacement Date/Time: 10/31/2023 4:21 PM Performed by: SABINE Jones CNP Authorized by: SABINE Jones CNP Consent: The indications, risks, benefits, alternatives to the procedure were explained to the patient/surrogate decision maker and their questions answered. Consent was obtained to proceed with the procedure. Timeout: Completed immediately prior to the start of the procedure which included verification of the correct patient, correct site and agreement on the procedure to be done. Indications: Indications: Long-term antibiotics and other (see comment) Indications comment: ESBL GNR UTI Anesthetic: Local anesthetic used: lidocaine without epinephrine Procedure details: Preparation: Skin prepped with chlorhexidine Skin prep agent dried: Skin prep agent completely dried prior to procedure Sterile barriers: All five maximal sterile barriers used - gloves, gown, cap, mask and large sterile sheet Hand hygiene: Hand hygiene performed prior to central venous catheter insertion Sterile technique: Sterile technique maintained throughout procedure. Site prior to insertion: Benign Procedure type: Insertion Orientation: right Location: Basilic Catheter type: Double lumen Catheter size: 5 Fr Lot #: [id number] Trimmed at (cm): 49 Inserted at (cm): 49 Ultrasound guidance: Yes Post-procedure: Post-procedure: Antimicrobial dressing applied and securement device Description/Findings: Flushes easily and blood returned Estimated blood loss: < 5 mL Specify complication(s): No apparent complications Follow-up chest x-ray: Ordered [facility] Interpretation and review of laboratory results Abnormal [facility] Performed by: [facility], [address] [place] [address] CLIA ID: [id number] [facility] Interpretation and review of laboratory results Abnormal [facility] Performed by: [facility], [address] [place] [address] ID: [id number] [facility] Radiology Study observation (narrative) [facility] Radiology Study observation (narrative) [facility] Radiology Study observation (narrative) [facility] Radiology Study observation (narrative) [facility] No Panel InformationOrdered By: Deborah Alcantara on 10-31-2023 [facility] [employer] Work Phone: Progress Noteon 10-31-2023 Progress Note ----- ----- Attestation signed by Delgado Chawla MD at 10/31/2023 4:55 PM I have personally performed a [id number] diagnostic evaluation on this patient on date of service 10/31/23. History, labs, imaging studies, and electronic medical record have been reviewed by me. This note documented by the [x]fellow []resident []ALFONSO reflects my history, exam, and medical decision making. I have reviewed and agree with the care plan. Changes were made in the orders as necessary. ROS documentation was reviewed and negative unless otherwise stated in HPI. Additional pertinent interval history, ROS, and physical exam findings: 58-year-old male with a history of BATOOL on BiPAP, morbid obesity, PE on Eliquis, prior spinal cord injury resulting in paraplegia, sacral decubitus ulcer with prior osteomyelitis, never-smoker admitted to [facility] 10/27/23 from [facility] for shortness of breath in the setting of RLL pneumonia and small right-sided loculated pleural effusion. CTS evaluated, not a surgical candidate, not enough fluid for chest tube. He feels well today, states symptoms are overall improved. He is saturating well on 4 LPM supplemental O2. He is hemodynamically stable and in no acute distress. Assessment: Acute hypoxemic respiratory failure RLL pneumonia Small loculated right-sided pleural effusion Atelectasis BATOOL on BiPAP Morbid obesity PE on Eliquis Never-smoker Plan: Outside images from [place] reviewed in PACS, consolidation in RLL concerning for pneumonia, associated atelectasis and small loculated pleural effusion concerning for parapneumonic effusion Unable to place chest tube due to limited amount of fluid, not a good candidate for VATS per CTS team ID following, planning for prolonged course of ertapenem CXR today appears stable, can consider chest tube placement if fluid re-accumulates No indication for bronchoscopy at this time Wean oxygen for goal SpO2 > 92% He will eventually need repeat CT chest in 6-8 weeks, recommend he have this done at [facility] home location Pulmonary will sign off Delgado Chawla MD Pulmonary & Critical Care Medicine [facility] Pager #[phone] ----- PULMONOLOGY CONSULT PROGRESS NOTE 10/31/2023 Hospital LOS: LOS: 4 days Subjective/Interval History: No acute events overnight. Remains on 4L NC. Reports he has not been able to bring up much mucous. Denies fevers or chills. Overall feels he is improving. Discussed plan for antibiotics and no drainage of the pleural space at this time. A pertinent review of systems was performed and was otherwise non-contributory except as detailed in Subjective section above. Assessment and Plan: Right lower lobe pneumonia with loculated pleural effusion Acute hypoxic respiratory failure secondary to above Right lower lobe atelectasis BATOOL Morbid obesity PE on Eliquis History of paraplegia after spinal cord injury; sacral decubitus ulcer with history of osteomyelitis Never smoker Presented with pneumonia and right sided loculated pleural effusion which was not amenable to thoracentesis at [facility]. Images from [facility] reviewed, shows RLL pneumonia, loculated effusion, and RLL atelectasis. Transferred for CT surgery evaluation for considerations for drainage. CT surgery evaluated and patient not a candidate for VATS, not enough fluid to safely drain with chest tube. If re-accumulates recommended chest tube placement. CXR today appears stable. No indication for Bronchoscopy at this time. MRSA nares screen was negative but sputum culture not collected due to patient not producing sputum Escalate pulmonary hygiene, added Chest physiotherapy/Acapella, continue IS, add hypertonic saline nebs x 3 days. Continue BIPAP overnight and with naps, continue when returning to facility Antibiotics per Infectious Disease, per notes planning for a 1-2 weeks course. Recommend monitor for recurrence of infectious signs after then and repeat imaging in ~4 weeks Pulmonology will sign off, please call if any questions or assistance is needed Wolf Esquivel MD Vitals- BP 116/67 (BP Location: Right arm, Patient Position: Lying) Pulse 96 Temp 36.7 ?C (98 ?F) (Temporal) Resp 14 Ht 5' 7 (1.702 m) Wt (!) 322 lb 1.5 oz (146 kg) SpO2 95% BMI 50.45 kg/m? Tmax: Temp (24hrs), Av.3 ?C (97.4 ?F), Min:35.9 ?C (96.7 ?F), Max:36.7 ?C (98 ?F) Hemodynamics: Cuff: Systolic (24hrs), Av , Min:116 , Max:160 /Diastolic (24hrs), Av, Min:65, Max:88 Cuff MAP:MAP (mmHg) Av.7 Min: 80 Max: 113 P: Pulse Av.7 Min: 89 Max: 96 Observed RR: Resp Av.5 Min: 14 Max: 17 Observed O2 sats: SpO2 Av.3 % Min: 88 % Max: 98 % (more content not included)... Normal [facility] XR CHEST 1 VIEWon 10-31-2023 XR CHEST 1 VIEW Patient Name: MELISSA DU : 1965 Exam Date/Time: 10/31/2023 16:58 Procedure: XR CHEST 1 VIEW Ordering Provider: ALCANTARA GWENDOLYN Reason For Exam: PICC placement CLINICAL INFORMATION: Severe shortness of breath. PICC line placement. Portable view of the chest at 1650 hours is provided and compared to a previous study of the same date at 0700 hours. FINDINGS: There is a dramatic S-shaped scoliosis of the thoracolumbar spine. Gan rods. For the thoracolumbar junction. The heart size is normal. A new PICC line is noted via the right arm. The distal tip is in the superior vena cava. Infiltrates and effusions are noted bilaterally, right greater than left. There is prominence of the interstitium and central pulmonary vasculature. IMPRESSION: 1. The right arm PICC line as described. The distal tip is in the SVC. 2. Bilateral infiltrates and effusions, right greater than left. 3. Prominence of the interstitium and central pulmonary vasculature consistent with moderate congestive heart failure/fluid overload. 4. Dramatic S-shaped scoliosis. Report Dictated on Electronically Signed By: Raphael Gonzales MD Electronically Signed Date/Time: 10/31/2023 7:12 PM EDT One Touch EMR [facility] XR CHEST 1 VIEW Patient Name: MELISSA DU : 1965 Exam Date/Time: 10/31/2023 07:01 Procedure: XR CHEST 1 VIEW Ordering Provider: ROCKWELL HARIKRISHNA Reason For Exam: Bilateral infiltrates and effusion PORTABLE CHEST: INDICATION: Follow-up COMPARISON: 10/30/2023 Obtained at 0700 hours. A single portable AP radiograph of the chest was obtained. The heart is borderline in size. The mediastinal silhouette is normal. Bilateral effusions with atelectasis are again present. There is a moderate-sized right-sided consolidation, unchanged. There is no pleural thickening. Arthritic changes of the spine and shoulders are present. Fusion rods are present in relation to the spine IMPRESSION: Stable appearance of the chest with continued bilateral effusions with atelectasis and consolidation of the right base. Report Dictated on Electronically Signed By: Jarod Tang DO Electronically Signed Date/Time: 10/31/2023 7:06 AM EDT One Touch EMR [facility] XR Chest Single viewon 10-30 1. The right arm PIC C line as described. The distal tip is in the SVC. 2. Bilateral infiltrates and effusions, right greater than left. 3. Prominence of the interstitium and central pulmonary vasculature consistent with moderate congestive heart failure/fluid overload. 4. Dramatic S-shaped scoliosis. Report Dictated on Electronically Signed By: Raphael Gonzales MD Electronically Signed Date/Time: 10/31/2023 7:12 PM EDT [facility] Patient Name: MELISSA DU : 1965 Exam Date/Time: 10/31/2023 16:58 Procedure: XR CHEST 1 VIEW Ordering Provider: ALCANTARA GWENDOLYN Reason For Exam: PICC placement CLINICAL INFORMATION: Severe shortness of breath. PICC line placement. Portable view of the chest at 1650 hours is provided and compared to a previous study of the same date at 0700 hours. FINDINGS: There is a dramatic S-shaped scoliosis of the thoracolumbar spine. Gan rods. For the thoracolumbar junction. The heart size is normal. A new PICC line is noted via the right arm. The distal tip is in the superior vena cava. Infiltrates and effusions are noted bilaterally, right greater than left. There is prominence of the interstitium and central pulmonary vasculature. [facility] Raphael Gonzales MD - 10/31/2023 Patient Name: MELISSA ELIAS : 1965 Exam Date/Time: 10/31/2023 16:58 Procedure: XR CHEST 1 VIEW Ordering Provider: ALCANTARA GWENDOLYN Reason For Exam: PICC placement CLINICAL INFORMATION: Severe shortness of breath. PICC line placement. Portable view of the chest at 1650 hours is provided and compared to a previous study of the same date at 0700 hours. FINDINGS: There is a dramatic S-shaped scoliosis of the thoracolumbar spine. Gan rods. For the thoracolumbar junction. The heart size is normal. A new PICC line is noted via the right arm. The distal tip is in the superior vena cava. Infiltrates and effusions are noted bilaterally, right greater than left. There is prominence of the interstitium and central pulmonary vasculature. IMPRESSION: 1. The right arm PICC line as described. The distal tip is in the SVC. 2. Bilateral infiltrates and effusions, right greater than left. 3. Prominence of the interstitium and central pulmonary vasculature consistent with moderate congestive heart failure/fluid overload. 4. Dramatic S-shaped scoliosis. Report Dictated on Electronically Signed By: Raphael Gonzales MD Electronically Signed Date/Time: 10/31/2023 7:12 PM EDT [facility] Radiology Study observation (narrative) [facility] Stable appearance of the chest with continued bilateral effusions with atelectasis and consolidation of the right base. Report Dictated on Electronically Signed By: Jarod Tang DO Electronically Signed Date/Time: 10/31/2023 7:06 AM T [facility] Patient Name: MELISSA DU : 1965 Exam Date/Time: 10/31/2023 07:01 Procedure: XR CHEST 1 VIEW Ordering Provider: ROCKWELL HARIKRISHNA Reason For Exam: Bilateral infiltrates and effusion PORTABLE CHEST: INDICATION: Follow-up COMPARISON: 10/30/2023 Obtained at 0700 hours. A single portable AP radiograph of the chest was obtained. The heart is borderline in size. The mediastinal silhouette is normal. Bilateral effusions with atelectasis are again present. There is a moderate-sized right-sided consolidation, unchanged. There is no pleural thickening. Arthritic changes of the spine and shoulders are present. Fusion rods are present in relation to the spine [facility] Jarod Tang DO - 10/31/2023 Patient Name: MELISSA ELIAS : 1965 Exam Date/Time: 10/31/2023 07:01 Procedure: XR CHEST 1 VIEW Ordering Provider: ROCKWELL HARIKRISHNA Reason For Exam: Bilateral infiltrates and effusion PORTABLE CHEST: INDICATION: Follow-up COMPARISON: 10/30/2023 Obtained at 0700 hours. A single portable AP radiograph of the chest was obtained. The heart is borderline in size. The mediastinal silhouette is normal. Bilateral effusions with atelectasis are again present. There is a moderate-sized right-sided consolidation, unchanged. There is no pleural thickening. Arthritic changes of the spine and shoulders are present. Fusion rods are present in relation to the spine IMPRESSION: Stable appearance of the chest with continued bilateral effusions with atelectasis and consolidation of the right base. Report Dictated on Electronically Signed By: Jarod Tang DO Electronically Signed Date/Time: 10/31/2023 7:06 AM EDT [facility] Radiology [facility]narrative[facility] Single viewOrdered By: Jarod Tang on 10-31-2023 [facility] [employer] Work Phone: CBC (HEMOGRAM)on 10-30-2023 Erythrocyte distribution width (RBC) [Ratio] 19.9 % High 11.5-15.0 [facility] Comment on above: Performed By: #### L [id number] #### Hotel Housekeeper: BARBARA PURDY ([phone]) [facility]) [address] [place] [address] Hematocrit (Bld) [Volume fraction] 28.7 % Low 40.0-52.0 [facility] Comment on above: Performed By: #### L [id number] #### Hotel Housekeeper: BARBARA [id number]) [address] Hemoglobin (Bld) [Mass/Vol] 7.7 g/dL Low 13.0-18.0 [facility] Comment on above: Performed By: #### L [id number] #### Hotel Housekeeper: BARBARA [id number]) [facility]) [address] [place] [address] MCH (RBC) [Entitic mass] 20.5 pg Low 26.0-34.0 [facility] Comment on above: Performed By: #### L [id number] #### Hotel Housekeeper: BARBARA [id number]) [facility]) [address] [place] [address] MCHC 26.8 % Low 30.5-36.0 [facility] Comment on above: Performed By: #### L [id number] #### Hotel Housekeeper: BARBARA PURDY ([id number]) [facility] ([facility]) [address] [place] [address] MCV (RBC) [Entitic vol] 76.5 fL Low 77.0-99.0 [facility] Comment on above: Performed By: #### L [id number] #### Hotel Housekeeper: BARBARA PURDY ([id number]) [facility] ([facility]) [address] [place] [address] Platelet mean volume (Bld) [Entitic vol] 9.0 fL Normal 9.0-12.7 [facility] Comment on above: Performed By: #### L [id number] #### Hotel Housekeeper: BARBARA PURDY ([id number]) [facility] ([facility]) [address] [place] [address] Platelets (Bld) [#/Vol] 458 10*3/uL High 140-440 [facility] Comment on above: Performed By: #### L [id number] #### Hotel Housekeeper: BARBARA PURDY ([id number]) [facility] ([facility]) [address] [place] [address] RBC (Bld) [#/Vol] 3.75 10*6/uL Low 4.40-5.90 [facility] Comment on above: Performed By: #### L [id number] #### Hotel Housekeeper: BARBARA PURDY ([id number]) [facility] ([facility]) [address] [place] [address] WBC (Bld) [#/Vol] 8.8 10*3/uL Normal 3.6-10.7 [facility] Comment on above: Performed By: #### L [id number] #### Hotel Housekeeper: BARBARA PURDY ([id number]) [facility] ([facility]) [address] [place] [address] CBC panel Auto (Bld)Ordered By: Tyrel Cain on 10-30-2023 Erythrocyte distribution width (RBC) [Ratio] 19.9 % High 11.5 - 15.0 % [facility] Hematocrit (Bld) [Volume fraction] 28.7 % Low 40.0 - 52.0 % [facility] Hemoglobin (Bld) [Mass/Vol] 7.7 g/dL Low 13.0 - 18.0 g/dL [facility] Interpretation and review of laboratory results Abnormal [facility] MCH (RBC) [Entitic mass] 20.5 pg Low 26.0 - 34.0 pg [facility] MCHC (RBC) [Mass/Vol] 26.8 % Low 30.5 - 36.0 % [facility] MCV (RBC) [Entitic vol] 76.5 fL Low 77.0 - 99.0 fL [facility] Platelet mean volume (Bld) [Entitic vol] 9.0 fL 9.0 - 12.7 fL [facility] Platelets (Bld) [#/Vol] 458 10*3/uL High 140 - 440 10*3/uL [facility] RBC (Bld) [#/Vol] 3.75 10*6/uL Low 4.40 - 5.9 0 10*6/uL [facility] WBC (Bld) [#/Vol] 8.8 10*3/uL 3.6 - 10.7 10*3/uL [facility] COMPREHENSIVE METABOLIC PANE Geoffrey 10-30-2023 Albumin [Mass/Vol] 3.1 g/dL Low 3.5-5.0 [facility] Comment on above: Performed By: #### L [id number] ####Hotel Housekeeper: BARBARA PURDY ([id number])[facility] ([facility])[address] [place] [address] ALP [Catalytic activity/Vol] 82 U/L Normal 38-126 [facility] Comment on above: Performed By: #### L [id number] ####Hotel Housekeeper: BARBARA PURDY ([id number])[facility])[address] [place] [address] ALT [Catalytic activity/Vol] 14 U/L Normal 0-49 [facility] Comment on above: Performed By: #### L [id number] ####Hotel Housekeeper: BARBARA PURDY ([id number])[facility] ([facility])[address] Anion gap [Moles/Vol] 5 mmol/L Normal 3-13 [facility] Comment on above: Performed By: #### L [id number] ####Hotel Housekeeper: BARBARA PURDY ([phone])[facility] ([facility])[address] [place] [address] [place] AST [Catalytic activity/Vol] 23 U/L Normal 15-46 [facility] Comment on above: Performed By: #### L [id number] ####Hotel Housekeeper: BARBARA PURDY ([phone])[facility] ([facility])[address] [place] [address] Bilirubin [Mass/Vol] 0.4 mg/dL Normal 0.2-1.3 [facility] Comment on above: Performed By: #### L [id number] ####Hotel Housekeeper: BARBARA PURDY ([id number])[facility] ([facility])[address] [place] [address] Calcium [Mass/Vol] 8.2 mg/dL Low 8.4-10.4 [facility] Comment on above: Performed By: #### L [id number] ####Hotel Housekeeper: BARBARA PURDY ([id number])[facility] ([facility])[address] [place] [address] [place] Chloride [Moles/Vol] 100 mmol/L Normal 98-107 [facility] Comment on above: Performed By: #### L [id number] ####Hotel Housekeeper: BARBARA PURDY ([id number])[facility] ([facility])[address] [place] [address] [place] CO2 [Moles/Vol] 30 mmol/L Normal 22-30 [facility] Comment on above: Performed By: #### L [id number] ####Hotel Housekeeper: BARBARA PURDY ([id number])[facility] ([facility])[address] [place] [address] [place] Creatinine [Mass/Vol] 0.46 mg/dL Low 0.66-1.25 [facility] Comment on above: Performed By: #### L [id number] ####Hotel Housekeeper: BARBARA PRUDY ([phone])[facility])[address] [place] [address] GLOMERULAR FILTRATION RATE ML/MIN/1.73 SQ M.PREDICTED >90.0 Normal >60.0 [facility] Comment on above: Result Comment: Calc ulation based on the Chronic Kidney Disease Epidemiology Collaboration (CKD-EPI) equation refit without adjustment for race Performed By: #### L [id number] ####Hotel Housekeeper: BARBARA PURDY ([phone])[facility] ([facility])[address] [place] [address] Glucose [Mass/Vol] 153 mg/dL High 70-100 [facility] Comment on above: Performed By: #### L [id number] ####Hotel Housekeeper: BARBARA PURYD ([id number])[facility])[address] [place] [address] Potassium [Moles/Vol] 3.8 mmol/L Normal 3.5-5.1 [facility] Comment on above: Performed By: #### L [id number] ####Hotel Housekeeper: BARBARA PURDY ([phone])[facility])[address] [place] [address] Protein [Mass/Vol] 6.5 g/dL Normal 6.3-8.2 [facility] Comment on above: Performed By: #### L [id number] ####Hotel Housekeeper: BARBARA PURDY ([id number])[facility])[address] [place] [address] [place] Sodium [Moles/Vol] 135 mmol/L Normal 135-145 [facility] Comment on above: Performed By: #### L [id number] ####Hotel Housekeeper: BARBARA PURDY ([id number])[facility])[address] [place] [address] Urea nitrogen [Mass/Vol] 10 mg/dL Normal 9-20 [facility] Comment on above: Performed By: #### L [id number] ####Hotel Housekeeper: BARBARA PURDY ([id number])[facility] ([facility])[address] [place] [address] Comprehensive metabolic 1998 panelon 10-30-2023 Albumin [Mass/Vol] 3.1 g/dL Low 3.5 - 5.0 g/dL [facility] ALP [Catalytic activity/Vol] 82 U/L 38 - 126 U/L [facility] ALT [Catalytic activity/Vol] 14 U/L 0 - 49 U/L [facility] Anion gap [Moles/Vol] 5 mmol/L 3 - 13 mmol/L [facility] AST [Catalytic activity/Vol] 23 U/L 15 - 46 U/L [facility] Bilirubin [Mass/Vol] 0.4 mg/dL 0.2 - 1 .3 mg/dL [facility] Calcium [Mass/Vol] 8.2 mg/dL Low 8.4 - 10. 4 mg/dL [facility] Chloride [Moles/Vol] 100 mmol/L 98 - 10 7 mmol/L [facility] CO2 [Moles/Vol] 30 mmol/L 22 - 30 mmol/L [facility] Creatinine [Mass/Vol] 0.46 mg/dL Low 0.66 - 1.25 mg/dL [facility] GFR/1.73 sq M.predicted MDRD (S/P/Bld) [Vol rate/Area] - PINF [facility] Comment on above: Calculation based on the Chronic Kidney Disease Epidemiology Collaboration (CKD-EPI) equation refit without adjustment for race Glucose [Mass/Vol] 153 mg/dL High 70 - 100 mg/dL [facility] Interpretation and review of laboratory results Abnormal [facility] Potassium [Moles/Vol] 3.8 mmol/L 3.5 - 5.1 mmol/L [facility] Protein [Mass/Vol] 6.5 g/dL 6.3 - 8.2 g/dL [facility] Sodium [Moles/Vol] 135 mmol/L 135 - 145 mmol/L [facility] Urea nitrogen [Mass/Vol] 10 mg/dL 9 - 20 mg/dL [facility] IDNon 10-30-2023 IDN Problem: Knowledge Deficit Goal: Patient/family/caregiver demonstrates understanding of disease process, treatment plan, medications, and discharge instructions Outcome: Progressing Problem: Potential for Compromised Skin Integrity Goal: Skin Integrity is Maintained or Improved Outcome: Progressing Goal: Nutritional status is improving Outcome: Progressing Problem: Urinary Incontinence Goal: Perineal skin integrity is maintained or improved Outcome: Progressing Problem: Hemodynamic Status Goal: Patient's vitals signs are stable Outcome: Progressing Problem: Excessive Fluid Volume Goal: Fluid and electrolyte balance are achieved/maintained Outcome: Progressing Problem: Inadequate Gas Exchange Goal: Nutritional status is improving Outcome: Progressing Goal: Patient is adequately oxygenated and ventilation is improved Outcome: Progressing Problem: Activity Intolerance/Impaired Mobility Goal: Mobility/activity is maintained at optimum level for patient Outcome: Progressing Problem: Nutrition Goal: Nutritional status is improving Outcome: Progressing Problem: Problem Interventions Goal: Assess Nutritional Intake Outcome: Progressing The patient is Moderately Stable - Low risk of patient condition declining or worsening The patient's goals for the shift include To breath better The clinical goals for the shift include Pt safety Normal [facility] Laboratory - Chemistry and C hemistry - challengeon 10-30-2023 Glucose [Mass/Vol] 203 mg/dL High 70 - 100 mg/dL [facility] Glucose [Mass/Vol] 178 mg/dL High 70 - 100 mg/dL [facility] Glucose [Mass/Vol] 237 mg/dL High 70 - 100 mg/dL [facility] Glucose [Mass/Vol] 177 mg/dL High 70 - 100 mg/dL [facility] No Panel Informationon 10-29 Interpretation and review of laboratory results Abnormal [facility] Performed by: [facility], [address] [place] [address] CLIA ID: [id number] [facility] Interpretation and review of laboratory results Abnormal [facility] Performed by: [facility], [address] [place] [address] CLIA ID: [id number] [facility] Interpretation and review of laboratory results Abnormal [facility] Performed by: [facility], [address] [place] [address] CLIA ID: [id number] [facility] Interpretation and review of laboratory results Abnormal [facility] Performed by: [facility], [address] [place] [address] CLIA ID: [id number] [facility] Radiology Study observation (narrative) [facility] Radiology Study observation (narrative) [facility] Radiology Study observation (narrative) [facility] Radiology Study observation (narrative) [facility] XR CHEST 1 VIEWon 10-30-2023 XR CHEST 1 VIEW [facility] 1965 [id number] Exam Date/Time: 10/30/2023 06:43 Procedure: XR CHEST 1 VIEW Ordering Provider: ROCKWELL HARIKRISHNA Reason For Exam: Bilateral infiltrates and effusion AP CHEST X-RAY CLINICAL INDICATION: Bilateral infiltrates and effusion TECHNIQUE: AP portable x-ray of the chest. COMPARISON: 10/29/2023 FINDINGS: Limitations: Portable technique, patient rotation, and very low lung volumes. Probable supine position. Lines/Tubes: None Heart/Mediastinum: Enlarged but not well assessed due to study limitations above Lungs: Moderate right pleural effusion and right-sided atelectasis or consolidation is unchanged. Mild improvement in left basilar atelectasis or consolidation. Stable small left pleural effusion. Bones: Unchanged IMPRESSION: Mildly improved left basilar airspace opacity. Otherwise stable chest. Report Dictated on Electronically Signed By: Ellyn Bergeron MD Electronically Signed Date/Time: 10/30/2023 8:10 AM EDT Normal [facility] XR Chest Single viewon 10-29 Mildly improved left basilar airspace opacity. Otherwise stable chest. Report Dictated on Electronically Signed By: Ellyn Bergeorn MD Electronically Signed Date/Time: 10/30/2023 8:10 AM EDT [facility] RADIOLOGY SYSTEM Patient Name: [facility]ELISSA DU : 1965 [id number] Exam Date/Time: 10/30/2023 06:43 Procedure: XR CHEST 1 VIEW Ordering Provider: ROCKWELL HARIKRISHNA Reason For Exam: Bilateral infiltrates and effusion AP CHEST X-RAY CLINICAL INDICATION: Bilateral infiltrates and effusion TECHNIQUE: AP portable x-ray of the chest. COMPARISON: 10/29/2023 FINDINGS: Limitations: Portable technique, patient rotation, and very low lung volumes. Probable supine position. Lines/Tubes: None Heart/Mediastinum: Enlarged but not well assessed due to study limitations above Lungs: Moderate right pleural effusion and right-sided atelectasis or consolidation is unchanged. Mild improvement in left basilar atelectasis or consolidation. Stable small left pleural effusion. Bones: Unchanged [facility] RADIOLOGY SYSTEM Ellyn Bergeron M D - 10/30/2023 Patient Name: MELISSA ELIAS : 1965 [id number] Exam Date/Time: 10/30/2023 06:43 Procedure: XR CHEST 1 VIEW Ordering Provider: ROCKWELL HARIKRISHNA Reason For Exam: Bilateral infiltrates and effusion AP CHEST X-RAY CLINICAL INDICATION: Bilateral infiltrates and effusion TECHNIQUE: AP portable x-ray of the chest. COMPARISON: 10/29/2023 FINDINGS: Limitations: Portable technique, patient rotation, and very low lung volumes. Probable supine position. Lines/Tubes: None Heart/Mediastinum: Enlarged but not well assessed due to study limitations above Lungs: Moderate right pleural effusion and right-sided atelectasis or consolidation is unchanged. Mild improvement in left basilar atelectasis or consolidation. Stable small left pleural effusion. Bones: Unchanged IMPRESSION: Mildly improved left basilar airspace opacity. Otherwise stable chest. Report Dictated on Electronically Signed By: Ellyn Bergeron MD Electronically Signed Date/Time: 10/30/2023 8:10 AM EDT [facility] Radiology Study observation (narrative) [facility] [employer] XR Chest Single viewOrdered By: Ellyn Bergeron on 10-30-2023 [employer] Work Phone: CBC (HEMOGRAM)on 10-29-2023 Erythrocyte distribution width (RBC) [Ratio] 19.9 % High 11.5-15.0 [facility] Comment on above: Performed By: #### L [id number] ####Hotel Housekeeper: BARBARA PURDY ([phone])[address] Hematocrit (Bld) [Volume fraction] 29.3 % Low 40.0-52.0 [facility] Comment on above: Performed By: #### L [id number] ####Hotel Housekeeper: BARBARA PURDY ([phone])[facility] ([facility])[address] [place] [address] Hemoglobin (Bld) [Mass/Vol] 7.9 g/dL Low 13.0-18.0 [facility] Comment on above: Performed By: #### L [id number] ####Hotel Housekeeper: BARBARA PURDY ([phone])[facility])[address] [place] [address] MCH (RBC) [Entitic mass] 20.5 pg Low 26.0-34.0 [facility] Comment on above: Performed By: #### L [id number] ####Hotel Housekeeper: BARBARA PURDY ([id number])[facility])[address] [place] [address] MCHC 27.0 % Low 30.5-36.0 [facility] Comment on above: Performed By: #### L [id number] ####Hotel Housekeeper: BARBARA PURDY ([phone])[facility] ([facility])[address] [place] [address] MCV (RBC) [Entitic vol] 75.9 fL Low 77.0-99.0 [facility] Comment on above: Performed By: #### L [id number] ####Hotel Housekeeper: BARBARA PURDY ([phone])[facility] ([facility])[address] [place] [address] Platelet mean volume (Bld) [Entitic vol] 8.9 fL Low 9.0-12.7 [facility] Comment on above: Performed By: #### L [id number] ####Hotel Housekeeper: BARBARA PURDY ([phone])[facility] ([facility])[address] [place] [address] Platelets (Bld) [#/Vol] 413 10*3/uL Normal 140-440 [facility] Comment on above: Performed By: #### L [id number] ####Hotel Housekeeper: BARBARA PURDY ([phone])[facility])[address] [place] [address] RBC (Bld) [#/Vol] 3.86 10*6/uL Low 4.40-5.90 [facility] Comment on above: Performed By: #### L [id number] ####Hotel Housekeeper: BARBARA PURDY ([id number])[facility] ([facility])[address] [place] [address] WBC (Bld) [#/Vol] 8.1 10*3/uL Normal 3.6-10.7 [facility] Comment on above: Performed By: #### L [id number] ####Hotel Housekeeper: BARBARA PURDY ([phone])[facility] ([facility])[address] [place] [address] CBC panel Auto (Bld)Ordered By: Palmira Tony on 10-29-2023 Erythrocyte distribution width (RBC) [Ratio] 19.9 % High 11.5 - 15.0 % [facility] Hematocrit (Bld) [Volume fraction] 29.3 % Low 40.0 - 52.0 % [facility] Hemoglobin (Bld) [Mass/Vol] 7.9 g/dL Low 13.0 - 18.0 g/dL [facility] Interpretation and review of laboratory results Abnormal [facility] MCH (RBC) [Entitic mass] 20.5 pg Low 26.0 - 34.0 pg [facility] MCHC (RBC) [Mass/Vol] 27.0 % Low 30.5 - 36.0 % [facility] MCV (RBC) [Entitic vol] 75.9 fL Low 77.0 - 99.0 fL [facility] Platelet mean volume (Bld) [Entitic vol] 8.9 fL Low 9.0 - 12.7 fL [facility] Platelets (Bld) [#/Vol] 413 10*3/uL 140 - 440 10*3/uL [facility] RBC (Bld) [#/Vol] 3.86 10*6/uL Low 4.40 - 5.9 0 10*6/uL [facility] WBC (Bld) [#/Vol] 8.1 10*3/uL 3.6 - 10.7 10*3/uL [facility] COMPREHENSIVE METABOLIC PANE Geoffrey 10-29-2023 Albumin [Mass/Vol] 3.1 g/dL Low 3.5-5.0 [facility] Comment on above: Performed By: #### L [id number] ####Hotel Housekeeper: BARBARA PURDY ([phone])[facility])[address] [place] [address] ALP [Catalytic activity/Vol] 92 U/L Normal 38-126 [facility] Comment on above: Performed By: #### L [id number] ####Hotel Housekeeper: BARBARA PURDY ([id number])[facility] ([facility])[address] [place] [address] ALT [Catalytic activity/Vol] 15 U/L Normal 0-49 [facility] Comment on above: Performed By: #### L [id number] ####Hotel Housekeeper: BARBARA PURDY ([phone])[facility] ([facility])[address] [place] [address] Anion gap [Moles/Vol] 6 mmol/L Normal 3-13 [facility] Comment on above: Performed By: #### L [id number] ####Hotel Housekeeper: BARBARA PURDY ([phone])[facility] ([facility])[address] [place] [address] AST [Catalytic activity/Vol] 18 U/L Normal 15-46 [facility] Comment on above: Performed By: #### L [id number] ####Hotel Housekeeper: BARBARA PURDY ([phone])[facility] ([facility])[address] [place] [address] Bilirubin [Mass/Vol] 0.3 mg/dL Normal 0.2-1.3 [facility] Comment on above: Performed By: #### L AB17 ####Hotel Housekeeper: BARBARA PURDY ([phone])[facility] ([facility])[address] [place] [address] Calcium [Mass/Vol] 8.4 mg/dL Normal 8.4-10.4 [facility] Comment on above: Performed By: #### L AB17 ####Hotel Housekeeper: BARBARA PURDY ([id number])[facility] ([facility])[address] [place] [address] Chloride [Moles/Vol] 101 mmol/L Normal 98-107 [facility] Comment on above: Performed By: #### L [id number] ####Hotel Housekeeper: BARBARA PURDY ([phone])[facility] ([facility])[address] [place] [address] CO2 [Moles/Vol] 30 mmol/L Normal 22-30 [facility] Comment on above: Performed By: #### L AB17 ####Hotel Housekeeper: BARBARA PURDY ([id number])[facility] ([facility])[address] [place] [address] Creatinine [Mass/Vol] 0.48 mg/dL Low 0.66-1.25 [facility] Comment on above: Performed By: #### L AB17 ####Hotel Housekeeper: BARBARA PURDY ([phone])[facility] ([facility])[address] [place] [address] GLOMERULAR FILTRATION RATE ML/MIN/1.73 SQ M.PREDICTED >90.0 Normal >60.0 [facility] Comment on above: Result Comment: Calc ulation based on the Chronic Kidney Disease Epidemiology Collaboration (CKD-EPI) equation refit without adjustment for race Performed By: #### L [id number] ####Hotel Housekeeper: BARBARA PURDY ([id number])[facility] ([facility])[address] [place] [address] Glucose [Mass/Vol] 147 mg/dL High 70-100 [facility] Comment on above: Performed By: #### L AB17 ####Hotel Housekeeper: BARBARA PURDY ([phone])[facility] ([facility])[address] [place] [address] [place] Potassium [Moles/Vol] 3.8 mmol/L Normal 3.5-5.1 [facility] Comment on above: Performed By: #### L AB17 ####Hotel Housekeeper: BARBARA [id number])[facility] ([facility])[address] [place] [address] Protein [Mass/Vol] 6.4 g/dL Normal 6.3-8.2 [facility] Comment on above: Performed By: #### L AB17 ####Hotel Housekeeper: BARBARA PURDY ([id number])[address] Sodium [Moles/Vol] 136 mmol/L Normal 135-145 [facility] Comment on above: Performed By: #### L AB17 ####Hotel Housekeeper: BARBARA PURDY ([id number])[facility] ([facility])[address] [place] [address] Urea nitrogen [Mass/Vol] 10 mg/dL Normal 9-20 [facility] Comment on above: Performed By: #### L AB17 ####Hotel Housekeeper: BARBARA PURDY ([id number])[facility])[address] [place] [address] Comprehensive metabolic 1998 panelon 10-29-2023 Albumin [Mass/Vol] 3.1 g/dL Low 3.5 - 5.0 g/dL [facility] ALP [Catalytic activity/Vol] 92 U/L 38 - 126 U/L [facility] ALT [Catalytic activity/Vol] 15 U/L 0 - 49 U/L [facility] Anion gap [Moles/Vol] 6 mmol/L 3 - 13 mmol/L [facility] AST [Catalytic activity/Vol] 18 U/L 15 - 46 U/L [facility] Bilirubin [Mass/Vol] 0.3 mg/dL 0.2 - 1 .3 mg/dL [facility] Calcium [Mass/Vol] 8.4 mg/dL 8.4 - 10. 4 mg/dL [facility] Chloride [Moles/Vol] 101 mmol/L 98 - 10 7 mmol/L [facility] CO2 [Moles/Vol] 30 mmol/L 22 - 30 mmol/L [facility] Creatinine [Mass/Vol] 0.48 mg/dL Low 0.66 - 1.25 mg/dL [facility] GFR/1.73 sq M.predicted MDRD (S/P/Bld) [Vol rate/Area] - PINF [facility] Comment on above: Calculation based on the Chronic Kidney Disease Epidemiology Collaboration (CKD-EPI) equation refit without adjustment for race Glucose [Mass/Vol] 147 mg/dL High 70 - 100 mg/dL [facility] Interpretation and review of laboratory results Abnormal [facility] Potassium [Moles/Vol] 3.8 mmol/L 3.5 - 5.1 mmol/L [facility] Protein [Mass/Vol] 6.4 g/dL 6.3 - 8.2 g/dL [facility] Sodium [Moles/Vol] 136 mmol/L 135 - 145 mmol/L [facility] Urea nitrogen [Mass/Vol] 10 mg/dL 9 - 20 mg/dL [facility] IDNon 10-29-2023 IDN Problem: Knowledge Deficit Goal: Patient/family/caregiver demonstrates understanding of disease process, treatment plan, medications, and discharge instructions Outcome: Progressing Problem: Potential for Compromised Skin Integrity Goal: Skin Integrity is Maintained or Improved Outcome: Progressing Goal: Nutritional status is improving Outcome: Progressing Problem: Urinary Incontinence Goal: Perineal skin integrity is maintained or improved Outcome: Progressing Problem: Hemodynamic Status Goal: Patient's vitals signs are stable Outcome: Progressing Problem: Excessive Fluid Volume Goal: Fluid and electrolyte balance are achieved/maintained Outcome: Progressing Problem: Inadequate Gas Exchange Goal: Nutritional status is improving Outcome: Progressing Goal: Patient is adequately oxygenated and ventilation is improved Outcome: Progressing Problem: Activity Intolerance/Impaired Mobility Goal: Mobility/activity is maintained at optimum level for patient Outcome: Progressing Problem: Nutrition Goal: Nutritional status is improving Outcome: Progressing Problem: Problem Interventions Goal: Assess Nutritional Intake Outcome: Progressing The patient is Moderately Stable - Low risk of patient condition declining or worsening The patient's goals for the shift include To breath better The clinical goals for the shift include Pt safety Normal [facility] Laboratory - Chemistry and C hemistry - challengeon 10-29-2023 Glucose [Mass/Vol] 212 mg/dL High 70 - 100 mg/dL [facility] Glucose [Mass/Vol] 187 mg/dL High 70 - 100 mg/dL [facility] Glucose [Mass/Vol] 256 mg/dL High 70 - 100 mg/dL [facility] Glucose [Mass/Vol] 159 mg/dL High 70 - 100 mg/dL [facility] No Panel Informationon 10-28 Interpretation and review of laboratory results Abnormal [facility] Performed by: [facility], [address] [place], [place] [id number] CLIA ID: [id number] [facility] Interpretation and review of laboratory results Abnormal [facility] Performed by: [facility], [address] [place] [address], [facility] [address] CLIA ID: [id number] [facility] Interpretation and review of laboratory results Abnormal [facility] Performed by: [facility], [address] [place] [address], [facility] [address] CLIA ID: [id number] [facility] Interpretation and review of laboratory results Abnormal [facility] Performed by: [facility], [address] [place] [address], [facility] [address] CLIA ID: [id number] [facility] Radiology Study observation (narrative) [facility] Radiology Study observation (narrative) [facility] Radiology Study observation (narrative) [facility] Radiology Study observation (narrative) [facility] Progress Noteon 10-29-2023 Progress Note ----- ----- Attestation signed by Sunitha Ralph DO at 10/30/2023 4:39 PM ATTESTATION The patient was seen and examined. I have reviewed the patients presentation, histories, imaging and serology studies. I agree with the above assessment and plan. My date of service is 10/29/23. No acute surgical intervention. Effusion is small. Patient clinically improving. ----- I (Sunitha Ralph) personally supervised the resident in the evaluation and development of a treatment plan for this patient including using nursing/ems notes. I personally discussed the review of systems and interviewed the patient along with performing a physical examination, answering questions and discussing treatment options as applicable. I have also reviewed and agree with the past medical, family and social history unless otherwise noted and personally reviewed the imaging and labs. This note may be a delayed entry. A total of 35 minutes were spent between the face to face encounter, physical exam, reviewing the medical history, coordinating the patient's care, counseling/educating the patient, ordering prescriptions/medications /tests/procedures, interpreting results and documenting clinical information in the patient's electronic health record on the day of the encounter. The patient was seen and examined independently and relevant data reviewed by myself. A full chart review was performed. 1. Pneumonia, bacterial Electronically signed by Sunitha Ralph DO, MS, FACOS ----- Department of Cardiothoracic Surgery Daily Progress Note ADMIT DATE: 10/27/2023 TODAY'S DATE: 10/29/2023 SUBJECTIVE: No acute events overnight. Tolerating diet. Pain controlled. Saturating well on NC. Breathing for patient feels similar to previous days. ROS: Noted above unless otherwise mentioned OBJECTIVE: VITALS: Temp: [36 ?C (96.8 ?F)-36.8 ?C (98.3 ?F)] 36 ?C (96.8 ?F) Heart Rate: [81-92] 81 Resp: [16-24] 18 BP: (115-143)/(62-74) 115/62 INTAKE/OUTPUT: Intake/Output Summary (Last 24 hours) at 10/29/2023 1111 Last data filed at 10/29/2023 1044 Gross per 24 hour Intake 1290 ml Output 2800 ml Net -1510 ml I/O last 3 completed shifts: In: 2350 (16.6 mL/kg) [P.O.:980; I.V.:120 (0.8 mL/kg); IV Piggyback:1250] Out: 5950 (41.9 mL/kg) [Urine:5700 (1.1 mL/kg/hr); Stool:250] Weight: 141.8 kg I/O this shift: In: - Out: 700 [Urine:700] PHYSICAL EXAM: CONSTITUTIONAL: awake, alert, cooperative, no apparent distress, obese NECK: Supple, symmetrical, trachea midline, no adenopathy LUNGS: Saturating well on 4 L nasal cannula CARDIOVASCULAR: Regular rate and rhythm ABDOMEN: Soft, non-distended, non-tender, no rebound, no guarding, no masses palpated, CHEST: no masses palpated, no axillary or supraclavicular adenopathy GENITAL/URINARY: Not examined MUSCULOSKELETAL: There is no redness, warmth, or swelling of the joints. Full range of motion noted. NEUROLOGIC: Awake, alert, oriented to name, place and time. SKIN: normal skin color, texture, no redness, warmth, or swelling LABS CBC: Auto WBC Date Value Ref Range Status 10/29/2023 8.1 3.6 - 10.7 10*3/uL Final 10/28/2023 7.9 3.6 - 10.7 10*3/uL Final 01/04/2023 8.7 3.6 - 10.7 10*3/uL Final Hemoglobin Date Value Ref Range Status 10/29/2023 7.9 (L) 13.0 - 18.0 g/dL Final 10/28/2023 7.8 (L) 13.0 - 18.0 g/dL Final 01/04/2023 8.6 (L) 13.0 - 18.0 g/dL Final Platelets Date Value Ref Range Status 10/29/2023 413 140 - 440 10*3/uL Final 10/28/2023 430 140 - 440 10*3/uL Final 01/04/2023 249 140 - 440 10*3/uL Final BMP: SODIUM Date Value Ref Range Status 10/29/2023 136 135 - 145 mmol/L Final 10/28/2023 134 (L) 135 - 145 mmol/L Final 10/27/2023 133 (L) 135 - 145 mmol/L Final POTASSIUM Date Value Ref Range Status 10/29/2023 3.8 3.5 - 5.1 mmol/L Final 10/28/2023 4.1 3.5 - 5.1 mmol/L Final 10/27/2023 4.4 3.5 - 5.1 mmol/L Final CHLORIDE Date Value Ref Range Status 10/29/2023 101 98 - 107 mmol/L Final 10/28/2023 100 98 - 107 mmol/L Final 10/27/2023 99 98 - 107 mmol/L Final CARBON DIOXIDE Date Value Ref Range Status 10/29/2023 30 22 - 30 mmol/L Final 10/28/2023 29 22 - 30 mmol/L Final 10/27/2023 29 22 - 30 mmol/L Final UREA NITROGEN Date Value Ref Range Status 10/29/2023 10 9 - 20 mg/dL Final 10/28/2023 17 9 - 20 mg/dL Final 10/27/2023 17 9 - 20 mg/dL Final CREATININE Date Value Ref Range Status 10/29/2023 0.48 (L) 0.66 - 1.25 mg/dL Final 10/28/2023 0.56 (L) 0.66 - 1.25 mg/dL Final 10/27/2023 0.61 (L) 0.66 - 1.25 mg/dL Final Hepatic: AST (SGOT) Date Value Ref Range Status 10/29/2023 18 15 - 46 U/L Final 10/28/2023 32 15 - 46 U/L Final 10/27/2023 31 15 - 46 U/L Final ALT (more content not included)... Normal [facility] Progress Note [facility], Pulmonary [facility] [place] [phone] Patient - Melissa Elias, Age - 58 y.o. - 1965 Room Number - [id number]/[id number] A Consulting - Pedro Taylor MD Primary Care Physician - ROCIO BARTLETT Date of Admission - 10/27/2023 5:00 PM Hospital Day - 2 Chief Complaint Melissa Elias is a 58 y.o. male who pulmonary is following for loculated pleural effusion right sided PNA Interval History Patient reports symptoms are improving. Complains mostly of uncomfortable bed. All other systems reviewed Objective Vitals: BP 142/72 (BP Location: Right arm, Patient Position: Sitting) Pulse 91 Temp 36.1 ?C (97 ?F) (Temporal) Resp 18 Ht 5' 7 (1.702 m) Wt (!) 312 lb 11.2 oz (142 kg) SpO2 94% BMI 48.98 kg/m? Pulse Ox: SpO2 Av.2 % Min: 93 % Max: 96 % Supplemental O2: O2 Flow Rate (L/min): 4 L/min I/O 24HR INTAKE/OUTPUT: Intake/Output Summary (Last 24 hours) at 10/29/2023 1020 Last data filed at 10/29/2023 0840 Gross per 24 hour Intake 1290 ml Output 2700 ml Net -1410 ml Exam General appearance: Awake, alert, no acute distress. On 4 liters NC. HEENT: Normocephalic, atraumatic. No scleral icterus, no right/left eye discharge. Conjunctivae normal. Pupils equal round and reactive to light. Right external ear normal, Left external ear normal. No congestion. Mouth: mucous membranes moist. Pharynx, Oropharynx is clear. No oropharyngeal exudate. Neck: ROM normal, No thyromegaly. No cervical lymphadenopathy Cardiovascular: Regular rate and rhythm. Heart sounds normal. Negative for murmur, friction rub or gallop. Pulmonary: Effort normal, no respiratory distress. No stridor Abdomen: Soft, no distention, no abdominal tenderness. No guarding. No masses. Musculoskeletal: ROM normal, Negative for swelling, tenderness or deformity. Skin: Warm and dry. Skin is not jaundiced. No rash Extremities: No clubbing, cyanosis, or extremity edema Neurological: No focal deficits. Alert and oriented x person, place and time. Mental status is at baseline. No motor weakness. Psychiatric: Mood, behavior, thought content normal. Cooperative with exam. Medications Current Medications amLODIPine, 10 mg, Oral, Daily [Held by provider] apixaban, 5 mg, Oral, BID carvedilol, 12.5 mg, Oral, BID WC cetirizine, 10 mg, Oral, Daily ertapenem, 1,000 mg, IntraVENous, q24h gabapentin, 100 mg, Oral, BID guaiFENesin, 1,200 mg, Oral, BID insulin glargine, 24 Units, SubCUTAneous, q AM insulin lispro, 0-6 Units, SubCUTAneous, TID WC And insulin lispro, 0-6 Units, SubCUTAneous, Nightly melatonin, 6 mg, Oral, Nightly morphine, 30 mg, Oral, BID pantoprazole, 40 mg, Oral, qAM AC senna-docusate sodium, 2 tablet, Oral, Nightly sodium chloride 0.9%, 5-40 mL, IntraVENous, q12h PRN Mediations PRN medications: acetaminophen OR acetaminophen, albuterol, carboxymethylcellulose PF, dextrose, dextrose, glucagon (rDNA), glucose, methocarbamol, naloxone, ondansetron ODT OR ondansetron, oxyCODONE, polyethylene glycol (PEG) 3350, sodium chloride, sodium chloride 0.9% IV Drips/Infusions Labs CBC Results from last 7 days Lab Units 10/29/23416 WBC AUTO 10*3/uL 8.1 HEMOGLOBIN g/dL 7.9* HEMATOCRIT % 29.3* PLATELETS AUTO 10*3/uL 413 BMP: Results from last 7 days Lab Units 10/29/2341610/28/23 0436 10/27/23 2311 SODIUM mmol/L 136 134* 133* POTASSIUM mmol/L 3.8 4.1 4.4 CHLORIDE mmol/L 101 100 99 CO2 mmol/L 30 29 29 BUN mg/dL 10 17 17 CREATININE mg/dL 0.48* 0.56* 0.61* GLUCOSE mg/dL 147* 144* 154* CALCIUM mg/dL 8.4 8.5 8.3* ABG: LIVER PROFILE Results from last 7 days Lab Units 10/29/2341610/28/23 04310/27/23 2311 ALK PHOS U/L 92 97 109 BILIRUBIN TOTAL mg/dL 0.3 0.3 0.3 PROTEIN TOTAL g/dL 6.4 6.7 6.7 ALT U/L 15 15 15 AST U/L 18 32 31 INR PTT No results found for: PTT Cultures Radiology CT chest from [facility] personally reviewed on PACS shows small loculated right side effusion and significant RLL PNA but no atelectasis etc. Active Hospital Problem List Patient Active Problem List Diagnosis Pneumonia, bacterial Aspiration pneumonitis (CMS/HCC) (HCC) Bilateral pulmonary embolism (HCC) Controlled type 2 diabetes mellitus without complication (HCC) Decubitus ulcer of left ischium, stage 3 (HCC) Heart failure, unspecified (HCC) Iron deficiency anemia Morbid obesity (HCC) BATOOL (obstructive sleep apnea) Osteomyelitis of lumbar spine (HCC) Paraplegia (HCC) Pressure injury of left heel, unstageable (HCC) Pressure injury of buttock, unstageable (HCC) Pressure injury of right buttock, stage 4 (HCC) Pressure injury of skin of sacral region Sacral wound Retention of urine, unspecified Spinal stenosis 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 Normal [facility] XR CHEST 1 VIEWon 10-29-2023 XR CHEST 1 VIEW Patient Name: MELISSA DU : 1965 Exam Date/Time: 10/29/2023 06:57 Procedure: XR CHEST 1 VIEW Ordering Provider: ROCKWELL HARIKRISHNA Reason For Exam: Bilateral infiltrates and effusion INDICATION: Bilateral infiltrates and pleural effusions. VIEWS: Chest portable-one image COMPARISON: 10/28/2023 FINDINGS: The trachea is midline. The cardiac silhouette is stable. Thoracolumbar fusion hardware is present. The patient is rotated. The lung volumes are low. There is thickening of the interstitium with bilateral opacities. IMPRESSION: Bilateral infiltrates with pleural effusions, right greater than left. Pulmonary vascular congestion and/or infiltrates. No significant change. Report Dictated on Electronically Signed By: Kassie Davis MD Electronically Signed Date/Time: 10/29/2023 9:[address] [facility] XR Chest Single viewon 10-28 Bilateral infiltrates with pleural effusions, right greater than left. Pulmonary vascular congestion and/or infiltrates. No significant change. Report Dictated on Electronically Signed By: Kassie Davis MD Electronically Signed Date/Time: 10/29/2023 9:43 AM EDT [facility] [employer] Patient Name: MELISSA DU : 1965 Exam Date/Time: 10/29/2023 06:57 Procedure: XR CHEST 1 VIEW Ordering Provider: ROCKWELL HARIKRISHNA Reason For Exam: Bilateral infiltrates and effusion INDICATION: Bilateral infiltrates and pleural effusions. VIEWS: Chest portable-one image COMPARISON: 10/28/2023 FINDINGS: The trachea is midline. The cardiac silhouette is stable. Thoracolumbar fusion hardware is present. The patient is rotated. The lung volumes are low. There is thickening of the interstitium with bilateral opacities. [facility] Kassie Davis MD - 10/29/2023 Patient Name: MELISSA ELIAS : 1965 Exam Date/Time: 10/29/2023 06:57 Procedure: XR CHEST 1 VIEW Ordering Provider: ROCKWELL HARIKRISHNA Reason For Exam: Bilateral infiltrates and effusion INDICATION: Bilateral infiltrates and pleural effusions. VIEWS: Chest portable-one image COMPARISON: 10/28/2023 FINDINGS: The trachea is midline. The cardiac silhouette is stable. Thoracolumbar fusion hardware is present. The patient is rotated. The lung volumes are low. There is thickening of the interstitium with bilateral opacities. IMPRESSION: Bilateral infiltrates with pleural effusions, right greater than left. Pulmonary vascular congestion and/or infiltrates. No significant change. Report Dictated on Electronically Signed By: Kassie Davis MD Electronically Signed Date/Time: 10/29/2023 9:43 AM EDT [facility] Radiology Study observation (narrative) [facility] [employer] XR Chest Single viewOrdered By: Kassie Davis on 10-29-2023 [facility] [employer] Work Phone: CARECOORDon 10-28-2023 CAR[facility] Pt in isolation for brandon auris. TCC tried to call into pt room three times with no answer, TCC called pt cell phone, left VM , and called mother's phone and left VM in attempts to complete IA. Pt is from [facility] in [place]. TCC tasked BATTERY LOADER to make return referral. TCC will attempt to complete IA as time allows.. Normal [facility] CBC (HEMOGRAM)on 10-28-2023 Erythrocyte distribution width (RBC) [Ratio] 19.4 % High 11.5-15.0 [facility] Comment on above: Performed By: #### L [id number] #### Hotel Housekeeper: BARBARA PURDY ([id number]) [facility]) [address] [place] [address] Hematocrit (Bld) [Volume fraction] 28.4 % Low 40.0-52.0 [facility] Comment on above: Performed By: #### L [id number] #### Hotel Housekeeper: BARBARA PURDY ([id number]) [facility]) [address] [place] [address] Hemoglobin (Bld) [Mass/Vol] 7.8 g/dL Low 13.0-18.0 [facility] Comment on above: Performed By: #### L [id number] #### Hotel Housekeeper: BARBARA PURDY ([id number]) [facility] ([facility]) [address] [place] [address] MCH (RBC) [Entitic mass] 21.0 pg Low 26.0-34.0 [facility] Comment on above: Performed By: #### L [id number] #### Hotel Housekeeper: BARBARA PURDY ([id number]) [facility]) [address] [place] [address] MCHC 27.5 % Low 30.5-36.0 [facility] Comment on above: Performed By: #### L [id number] #### Hotel Housekeeper: BARBARA PURDY ([id number]) [facility] ([facility]) [address] [place] [address] MCV (RBC) [Entitic vol] 76.3 fL Low 77.0-99.0 [facility] Comment on above: Performed By: #### L [id number] #### Hotel Housekeeper: BARBARA PURDY ([id number]) [facility]) [address] [place] [address] [place] Platelet mean volume (Bld) [Entitic vol] 9.2 fL Normal 9.0-12.7 [facility] Comment on above: Performed By: #### L [id number] #### Hotel Housekeeper: BARBARA PURDY ([id number]) [facility] ([facility]) [address] [place] [address] Platelets (Bld) [#/Vol] 430 10*3/uL Normal 140-440 [facility] Comment on above: Performed By: #### L [id number] #### Hotel Housekeeper: BARBARA PURDY ([id number]) [facility] ([facility]) [address] [place] [address] RBC (Bld) [#/Vol] 3.72 10*6/uL Low 4.40-5.90 [facility] Comment on above: Performed By: #### L [id number] #### Hotel Housekeeper: BARBARA PURDY ([id number]) [facility] ([facility]) [address] [place] [address] WBC (Bld) [#/Vol] 7.9 10*3/uL Normal 3.6-10.7 [facility] Comment on above: Performed By: #### L [id number] #### Hotel Housekeeper: BARBAAR PURDY ([id number]) [facility] ([facility]) [address] [place] [address] CBC panel Auto (Bld)Ordered By: Desirae Nieves on 10-28-2023 Erythrocyte distribution width (RBC) [Ratio] 19.4 % High 11.5 - 15.0 % [facility] Hematocrit (Bld) [Volume fraction] 28.4 % Low 40.0 - 52.0 % [facility] Hemoglobin (Bld) [Mass/Vol] 7.8 g/dL Low 13.0 - 18.0 g/dL [facility] Interpretation and review of laboratory results Abnormal [facility] MCH (RBC) [Entitic mass] 21.0 pg Low 26.0 - 34.0 pg [facility] MCHC (RBC) [Mass/Vol] 27.5 % Low 30.5 - 36.0 % [facility] MCV (RBC) [Entitic vol] 76.3 fL Low 77.0 - 99.0 fL [facility] Platelet mean volume (Bld) [Entitic vol] 9.2 fL 9.0 - 12.7 fL [facility] Platelets (Bld) [#/Vol] 430 10*3/uL 140 - 440 10*3/uL [facility] RBC (Bld) [#/Vol] 3.72 10*6/uL Low 4.40 - 5.9 0 10*6/uL [facility] WBC (Bld) [#/Vol] 7.9 10*3/uL 3.6 - 10.7 10*3/uL [facility] COMPREHENSIVE METABOLIC PANE Geoffrey 10-28-2023 Albumin [Mass/Vol] 3.0 g/dL Low 3.5-5.0 [facility] Comment on above: Performed By: #### L [id number] #### Hotel Housekeeper: BARBARA PURDY ([id number]) [facility]) [address] [place] [address] ALP [Catalytic activity/Vol] 97 U/L Normal 38-126 [facility] Comment on above: Performed By: #### L [id number] #### Hotel Housekeeper: BARBARA PURDY ([id number]) [facility] ([facility]) [address] [place] [address] ALT [Catalytic activity/Vol] 15 U/L Normal 0-49 [facility] Comment on above: Performed By: #### L [id number] #### Hotel Housekeeper: BARBARA PURDY ([id number]) [facility] ([facility]) [address] [place] [address] Anion gap [Moles/Vol] 5 mmol/L Normal 3-13 [facility] Comment on above: Performed By: #### L [id number] #### Hotel Housekeeper: BARBARA PURDY ([id number]) [facility]) [address] [place] [address] AST [Catalytic activity/Vol] 32 U/L Normal 15-46 [facility] Comment on above: Performed By: #### L [id number] #### Hotel Housekeeper: BARBARA [id number]) [facility]) [address] [place] [address] Bilirubin [Mass/Vol] 0.3 mg/dL Normal 0.2-1.3 [facility] Comment on above: Performed By: #### L [id number] #### Hotel Housekeeper: BARBARA PURDY ([id number]) [facility] ([facility]) [address] [place] [address] Calcium [Mass/Vol] 8.5 mg/dL Normal 8.4-10.4 [facility] Comment on above: Performed By: #### L [id number] #### Hotel Housekeeper: BARBARA PURDY ([id number]) [facility] ([facility]) [address] [place] [address] Chloride [Moles/Vol] 100 mmol/L Normal 98-107 [facility] Comment on above: Performed By: #### L [id number] #### Hotel Housekeeper: BARBARA PURDY ([id number]) [facility] ([facility]) [address] [place] [address] CO2 [Moles/Vol] 29 mmol/L Normal 22-30 [facility] Comment on above: Performed By: #### L [id number] #### Hotel Housekeeper: BARBARA PURDY ([id number]) [facility] ([facility]) [address] [place] [address] Creatinine [Mass/Vol] 0.56 mg/dL Low 0.66-1.25 [facility] Comment on above: Performed By: #### L [id number] #### Hotel Housekeeper: BARBARA PURDY ([id number]) [facility] ([facility]) [address] [place] [address] GLOMERULAR FILTRATION RATE ML/MIN/1.73 SQ M.PREDICTED >90.0 Normal >60.0 [facility] Comment on above: Result Comment: Calc ulation based on the Chronic Kidney Disease Epidemiology Collaboration (CKD-EPI) equation refit without adjustment for race Performed By: #### L [id number] #### Hotel Housekeeper: BARBARA PURDY ([id number]) [facility] ([facility]) [address] [place] [address] Glucose [Mass/Vol] 144 mg/dL High 70-100 [facility] Comment on above: Performed By: #### L [id number] #### Hotel Housekeeper: BARBARA PURDY ([id number]) [facility] ([facility]) [address] [place] [address] Potassium [Moles/Vol] 4.1 mmol/L Normal 3.5-5.1 [facility] Comment on above: Performed By: #### L [id number] #### Hotel Housekeeper: BARBARA PURDY ([id number]) [facility] ([facility]) [address] [place] [address] Protein [Mass/Vol] 6.7 g/dL Normal 6.3-8.2 [facility] Comment on above: Performed By: #### L [id number] #### Hotel Housekeeper: BARBARA PURDY ([id number]) [facility] ([facility]) [address] [place] [address] Sodium [Moles/Vol] 134 mmol/L Low 135-145 [facility] Comment on above: Performed By: #### L [id number] #### Hotel Housekeeper: BARBARA PURDY ([id number]) [facility] ([facility]) [address] [place] [address] Urea nitrogen [Mass/Vol] 17 mg/dL Normal 9-20 [facility] Comment on above: Performed By: #### L [id number] #### Hotel Housekeeper: BARBARA PURDY ([id number]) [facility] ([facility]) [address] [place] [address] Comprehensive metabolic 1998 panelon 10-28-2023 Albumin [Mass/Vol] 3.0 g/dL Low 3.5 - 5.0 g/dL [facility] ALP [Catalytic activity/Vol] 97 U/L 38 - 126 U/L [facility] ALT [Catalytic activity/Vol] 15 U/L 0 - 49 U/L [facility] Anion gap [Moles/Vol] 5 mmol/L 3 - 13 mmol/L [facility] AST [Catalytic activity/Vol] 32 U/L 15 - 46 U/L [facility] Bilirubin [Mass/Vol] 0.3 mg/dL 0.2 - 1 .3 mg/dL [facility] Calcium [Mass/Vol] 8.5 mg/dL 8.4 - 10. 4 mg/dL [facility] Chloride [Moles/Vol] 100 mmol/L 98 - 10 7 mmol/L [facility] CO2 [Moles/Vol] 29 mmol/L 22 - 30 mmol/L [facility] Creatinine [Mass/Vol] 0.56 mg/dL Low 0.66 - 1.25 mg/dL [facility] GFR/1.73 sq M.predicted MDRD (S/P/Bld) [Vol rate/Area] - PINF [facility] Comment on above: Calculation based on the Chronic Kidney Disease Epidemiology Collaboration (CKD-EPI) equation refit without adjustment for race Glucose [Mass/Vol] 144 mg/dL High 70 - 100 mg/dL [facility] Interpretation and review of laboratory results Abnormal [facility] Potassium [Moles/Vol] 4.1 mmol/L 3.5 - 5.1 mmol/L [facility] Protein [Mass/Vol] 6.7 g/dL 6.3 - 8.2 g/dL [facility] Sodium [Moles/Vol] 134 mmol/L Low 135 - 145 mmol/L [facility] Urea nitrogen [Mass/Vol] 17 mg/dL 9 - 20 mg/dL [facility] Consulton 10-28-2023 Consult [facility] - Infectious Diseases Attending Consult Note Reason for Consult: ?PNA with loculated effusion, on Meropenem History of Present Illness: 58 M, F resident after fall resulting in L1 injury and paraplegia, and with recent obstructive uropathy issues, clots form traumatic bartlett insertions leading to UTIs, most recent cultyure + ESBL- E coli form 10/15/23. Admitted to OSH 10/23 for hypoxic respiratory failure, on HFNC initially, assoiated cough-occasionally productive, and CT did show R infiltrated and loculated effusion. Started on broad spectrum antibiotics thered, and started to get better, down to 4 L NC. They attempted thoracentesis, unsuccessful and was transferred to [facility] for CTS evaluation, possible chest tube placement. He rported congestion from past month, attributed to allergies, denied choking on his food or sick contacts. Viral PCR negative, Urinary Ags neg, BC negative at OSH. NKDA Past Medical History: History reviewed. No pertinent past medical history. Past Surgical History: History reviewed. No pertinent surgical history. Current Medications: Current Facility-Administered Medications Medication Dose Route Frequency Provider Last Rate Last Admin acetaminophen (Tylenol) tablet 650 mg 650 mg Oral q6h PRN Ellyn De León MD 650 mg at 10/27/23 2318 Or acetaminophen (Tylenol) suppository 650 mg 650 mg Rectal q6h PRN Ellyn De León MD albuterol (2.5 MG/3ML) 0.083% nebulizer solution 2.5 mg 2.5 mg Nebulization q4h PRN Ellyn De León MD amLODIPine (Norvasc) tablet 10 mg 10 mg Oral Daily Ellyn De León MD 10 mg at 10/28/23 1020 [Held by provider] apixaban (Eliquis) tablet 5 mg 5 mg Oral BID Ellyn De León MD carboxymethylcellulose PF (Refresh Plus) 0.5 % ophthalmic solution 1 drop 1 drop Both Eyes BID PRN Ellyn De León MD carvedilol (Coreg) tablet 12.5 mg 12.5 mg Oral BID Ellyn De León MD 12.5 mg at 10/28/23 1019 cetirizine (ZyrTEC) tablet 10 mg 10 mg Oral Daily Ellyn De León MD 10 mg at 10/28/23 1158 dextrose 5 % infusion 100 mL/hr IntraVENous PRN Ellyn De León MD dextrose 50 % solution 12.5 g 12.5 g IntraVENous PRN Ellyn De León MD gabapentin (Neurontin) capsule 100 mg 100 mg Oral BID Ellyn De León MD 100 mg at 10/28/23 1019 glucagon (human recombinant) injection 1 mg 1 mg IntraMUSCular PRN Ellyn De León MD glucose oral gel 15 g 15 g Oral PRN Ellyn De León MD guaiFENesin (Mucinex) 12 hr tablet 1,200 mg 1,200 mg Oral BID Ellyn De León MD 1,200 mg at 10/28/23 1025 insulin glargine (Lantus) injection 24 Units 24 Units SubCUTAneous q AM Ellyn De León MD 24 Units at 10/28/23 1021 Insulin Lispro (Humalog) injection 0-6 Units 0-6 Units SubCUTAneous TID Ellyn De León MD 1 Units at 10/28/23 1159 And Insulin Lispro (Humalog) injection 0-6 Units 0-6 Units SubCUTAneous Nightly Ellyn De León MD 1 Units at 10/27/23 2318 melatonin tablet 6 mg 6 mg Oral Nightly Ellyn De León MD 6 mg at 10/27/23 2318 meropenem (Merrem) 2,000 mg in sodium chloride 0.9 % 100 mL IVPB 2,000 mg IntraVENous q8h Ellyn De León MD Stopped at 10/28/23 1318 methocarbamol (Robaxin) tablet 1,000 mg 1,000 mg Oral q8h PRN Ellyn De León MD 1,000 mg at 10/28/23 1024 morphine (MSIR) tablet 30 mg 30 mg Oral BID Ellyn De León MD 30 mg at 10/28/23 1019 naloxone (Narcan) injection 0.4 mg 0.4 mg IntraVENous q5 min PRN Helen Aldridge DO ondansetron ODT (Zofran-ODT) disintegrating tablet 4 mg 4 mg Oral q8h PRN Ellyn De León MD Or ondansetron (Zofran) injection 4 mg 4 mg IntraVENous q6h PRN Ellyn De León MD oxyCODONE (Roxicodone) immediate release tablet 10 mg 10 mg Oral q6h PRN Ellyn De León MD 10 mg at 10/28/23 1158 pantoprazole (ProtoNix) EC tablet 40 mg 40 mg Oral qAM AC Ellyn De León MD 40 mg at 10/28/23 0607 polyethylene glycol (PEG) 3350 (Miralax) packet 17 g 17 g Oral Daily PRN Ellyn De León MD senna-docusate sodium (Senokot-S) 8.6-50 MG tablet 2 tablet 2 tablet Oral Nightly Ellyn De León MD sodium chloride 0.9 % infusion 5-250 mL/hr IntraVENous PRN Ellyn De León MD sodium chloride 0.9% (NS) flush 5-40 mL 5-40 mL IntraVENous q12h Ellyn De León MD 10 mL at 10/28/23 1015 sodium chloride 0.9% (NS) flush 5-40 mL 5-40 mL IntraVENous PRN Ellyn De León MD vancomycin (Vancocin) 1750 mg in NS 500 mL IVPB (premix) 1,750 mg IntraVENous q12h Ellyn De León MD 1,750 mg at 10/28/23 1218 Allergies: No Known Allergies Social History: Social History Socioeconomic History Marital status: Single Spouse name: Not on file Number of children: Not on file Years of education: Not on file Highest education level: Not on file Occupational History Not on file Tobacco Use Smoking status: Not on file Smokeless tobacco: Not on file Substance and Sexual Activity Alcohol use: Not on file Drug use: Not on file Sexual activity: Not on file Other Topics Concern Not on file Social History Narrative Not on file Social Determinants of Health Financial Resource Strain: Not on file Fo (more content not included)... [facility] Consult ----- ----- Attestation signed by Jd Peñaloza MD at 10/28/2023 3:20 PM I have personally performed a [id number] diagnostic evaluation on this patient on date of service 10/28/23. History, labs, imaging studies, and electronic medical record have been reviewed by me. This note documented by the [x]manager of warehouse []ALFONSO reflects my history, exam, and medical decision making. I have reviewed and agree with the care plan. Changes were made in the orders as necessary. ROS documentation was reviewed and negative unless otherwise stated in HPI. Additional pertinent interval history, ROS, and physical exam findings: Outside imaging unable to review reports of loculated effusion, no endobronchial mass, no adenopathy. Patient attempted a thoracentesis but was unable to be done due to small pocket Patient severely chronically ill. Resides in [facility], [facility] wound etc. CTS note reviewed. CXR reviewed by me shows right pleural effusion. Assessment: Loculated right parapneumonia effusion Acute respiratory failure with hypoxia HAP BATOOL/OHS on BiPAP Severe morbid obesity BMI 50 Plan: Unable to review [facility] images, however no need for bronchoscopy at this time, no mention of mass, lobar atelectasis, mucous plugs or adenopathy. Small effusion nto amendable to thora, consider imaging guided pigtail and lytics if worsens. Patient poor candidate for any invasive procedures. IV abx. May just treat with abx and leav effusion alone. Will attempt to get [facility] records. ----- PULMONOLOGY CONSULT NOTE 10/28/2023 1:33 PM Reason for consult: Pneumonia with reported mucous plugging Inpatient consult to Pulmonology Consult performed by: Wolf Esquivel MD Consult ordered by: Ellyn De León MD Subjective: Admit Date: 10/27/2023 PCP: ROCIO BARTLETT HPI: Melissa Elias is a 58 year old man with a history of paraplegia after spinal cord injury, sacral decubitus ulcer with history of osteomyelitis, pressure injuries, BATOOL, PE on Eliquis, DM2, chronic Bartlett who was transferred to [place] for loculated parapneumonic effusion on the right. Initially admitted to [place] 10/24, and treated with broad spectrum antibiotics Vanc/Merrem, CTA chest suggested pneumonia with a loculated right pleural effusion. Had negative urine strep pneumo/legionella and COVID/Flu/RSV. Thoracentesis was attempted but there was no amenable pocket for drainage. He was transferred to [facility] for CT Surgery evaluation. Labs here with WBC 7.9. He has been afebrile Patient reports he began feeling ill on Tuesday, endorses fever, chills, productive cough. He reports minimal pleuritic pain however. He reports since his fall he has had osteomyelitis s/p spinal surgery, as well as one other bout of pneumonia requiring simple thoracentesis. He says he is not usually on supplemental oxygen. Reports he is a never smoker. Has never had PFTs or seen a Personalized Living Manager. CXR today is notable for bilateral pleural effusions R > L, pulmonary vascular congestion. Assessment and Plan: Right lower lobe pneumonia with loculated pleural effusion Acute hypoxic respiratory failure secondary to above BATOOL Morbid obesity PE on Eliquis History of paraplegia after spinal cord injury; sacral decubitus ulcer with history of osteomyelitis Never smoker Presents with suspected pneumonia from outside hospital with right sided loculated pleural effusion which was not amenable to thoracentesis there. Transferred for CT surgery evaluation for considerations for drainage. He is on 4L NC at this time and in no distress. Appreciate CT surgery recommendations. Suspect IR guided chest tube with drainage will be necessary. Unable to see report or imaging from [facility] - will attempt to obtain images from there. No indication for Bronchoscopy at this time. Check sputum culture, pneumonia PCR, and MRSA nares screening as well as procalcitonin Agree with autobipiap overnight and with naps Wolf Esquivel MD Fellow, Pulmonary and Critical Care Medicine Past Medical History: History reviewed. No pertinent past medical history. Past Surgical History: History reviewed. No pertinent surgical history. Allergies: No Known Allergies Social History: Social History Substance and Sexual Activity Alcohol Use None Social History Substance and Sexual Activity Drug Use Not on file Social History Tobacco Use Smoking Status Not on file Smokeless Tobacco Not on file Family History: No family history on file. Review of Systems Constitutional: Positive for fever. Negative for unexpected weight change. HENT: Negative for congestion, rhinorrhea and sore throat. Eyes: Negative for visual disturbance. Respiratory: Positive for cough and shortnes (more content not included)... Normal [facility] Consult ----- ----- Attestation signed by Lucian Lorenz MD at 11/16/2023 9:16 AM DOS: 10-28-23 I personally performed a [id number] diagnostic evaluation on this patient I agree with the findings and plan of care as documented by the ALFONSO or resident. There has been no change in the physical exam or findings unless otherwise noted below. A total of 44 minutes were spent between the evuo-ku-dres encounter, physical exam, reviewing the medical history, coordinating the patient's care, counseling/educating the patient, ordering medications/test/procedur es, interpreting results and documenting clinical information in the patients electronic health record on the day of the encounter. The patient was seen and examined independently and relevant data reviewed by myself. A full chart review was performed. ----- Department of General Surgery Surgical Service - Cardiothoracic Surgery Resident Consult Note 10/28/2023 CHIEF COMPLAINT: No chief complaint on file. Reason for Consult: Right-sided pleural effusion HISTORY OF PRESENT ILLNESS: Melissa Elias is a 58 y.o. male with significant past medical history of paraplegia, BATOOL, history of PE on Eliquis, diabetes, who presents with shortness of breath. Surgery was consulted for evaluation of right pleural effusion. Patient states his health started to come declined a year ago when he fell injuring his thoracic spine, resulting in paralysis from the waist down. During this time he was hospitalized for greater than a month and had hospital-acquired pneumonia. Since that time he has required oxygen, has been in nursing facilities. He states that over the last few weeks his shortness of breath has worsened. He presented to [facility] where he was found to have a right-sided pleural effusion. At [place] they attempted to do thoracentesis but there was not enough fluid for successful access. Also concern for pneumonia, started on empiric antibiotics. He currently takes Eliquis for history of PE. On evaluation patient was afebrile hemodynamically stable, breathing comfortably on 4 L. Labs reviewed significant for: Being without leukocytosis, hemoglobin stable, no significant electrolyte abnormalities on BMP. imaging demonstrated a small right-sided pleural effusion with elevated right diaphragm and noted to have small intra thoracic cavity dimensions greater on the right side. History reviewed. No pertinent past medical history. History reviewed. No pertinent surgical history. Medications Prior to Admission: No current facility-administered medications on file prior to encounter. No current outpatient medications on file prior to encounter. Allergies: Patient has no known allergies. Social History Socioeconomic History Marital status: Single Social Determinants of Health Intimate Partner Violence: Not At Risk (10/28/2023) Humiliation, Afraid, Rape, and Kick questionnaire Fear of Current or Ex-Partner: No Emotionally Abused: No Physically Abused: No Sexually Abused: No No family history on file. REVIEW OF SYSTEMS: Review of Systems Respiratory: Positive for shortness of breath. All other systems reviewed and are negative. PHYSICAL EXAM: Vitals: 10/28/23 1125 BP: 143/74 Pulse: 92 Resp: 16 Temp: 36.8 ?C (98.3 ?F) SpO2: 96% I/O last 3 completed shifts: In: 880 (6.2 mL/kg) [P.O.:200; I.V.:80 (0.6 mL/kg); IV Piggyback:600] Out: 1850 (13 mL/kg) [Urine:1600 (0.3 mL/kg/hr); Stool:250] Weight: 141.8 kg CONSTITUTIONAL: awake, alert, cooperative, no apparent distress, obese NECK: Supple, symmetrical, trachea midline, no adenopathy LUNGS: Saturating well on 4 L nasal cannula CARDIOVASCULAR: Regular rate and rhythm ABDOMEN: Soft, non-distended, non-tender, no rebound, no guarding, no masses palpated, CHEST: no masses palpated, no axillary or supraclavicular adenopathy GENITAL/URINARY: Not examined MUSCULOSKELETAL: There is no redness, warmth, or swelling of the joints. Full range of motion noted. NEUROLOGIC: Awake, alert, oriented to name, place and time. SKIN: normal skin color, texture, no redness, warmth, or swelling DATA: CBC: Lab Results Component Value Date WBC 7.9 10/28/2023 RBC 3.72 (L) 10/28/2023 HGB 7.8 (L) 10/28/2023 HCT 28.4 (L) 10/28/2023 MCV 76.3 (L) 10/28/2023 MCH 21.0 (L) 10/28/2023 MCHC 27.5 (L) 10/28/2023 RDW 19.4 (H) 10/28/2023 PLT 430 10/28/2023 MPV 9.2 10/28/2023 BMP: Lab Results Component Value Date NA 134 (L) 10/28/2023 K 4.1 10/28/2023 CL 100 10/28/2023 CO2 29 10/28/2023 BUN 17 10/28/2023 CREATININE 0.56 (L) 10/28/2023 CALCIUM 8.5 10/28/2023 GLUCOSE 144 (H) 10/28/2023 Hepatic Function Panel: Lab Results Component Value Date ALKPHOS 97 10/28/2023 ALT 15 10/28/2023 AST 32 10/28/2023 PROT 6.7 10/28/2023 (more content not included)... Normal [facility] Consult [facility] Wound/Ostomy CONSULT Note Melissa Elias AGE: 58 y.o. GENDER: male : 1965 Subjective: HISTORY of PRESENT ILLNESS HPI Melissa Elias is a 58 y.o. male who presents for wound care and ostomy management. History Context: Hx significant for DMII, paraplegia, BATOOL, Hx of blood clots and resides at [facility]. (+) Chronic Bartlett, was recently found to have ESBL E coli UTI. Admitted 10/24 at [place] when he presented to ED for hypoxia and found to have pneumonia. Started on empiric Vancomycin/Merrem. Pt transferred to [facility] from [place] [facility] for CT Surgical specialty assessment for drainage of effusions. Wound and ostomy care consulted for pressure injury and colostomy. PAST MEDICAL HISTORY History reviewed. No pertinent past medical history. PAST SURGICAL HISTORY History reviewed. No pertinent surgical history. FAMILY HISTORY No family history on file. SOCIAL HISTORY ALLERGIES No Known Allergies MEDICATIONS No current facility-administered medications on file prior to encounter. No current outpatient medications on file prior to encounter. REVIEW OF SYSTEMS Pertinent items are noted in HPI. Objective: BP 132/76 (BP Location: Right arm, Patient Position: Lying) Pulse 84 Temp 36.9 ?C (98.4 ?F) (Temporal) Resp 16 Ht 1.702 m (5' 7) Wt (!) 142 kg (312 lb 11.2 oz) SpO2 98% BMI 48.98 kg/m? PHYSICAL EXAM General appearance: in no apparent distress, well developed and well nourished, non-toxic, in no respiratory distress and acyanotic, and alert, obese Skin: warm and dry Pulmonary: Normal effort, no respiratory distress, no cyanosis Abdomen: Colostomy to RLQ. Stoma pink and moist through pouch. Small firm stool in pouch. Pouch intact Sacrum: 20.0cmx30.cmx6.5cm. [place]/red granulation with yellow slough to base of wound. Pen aniya drain noted from left buttock to middle of sacrum ulcer. Moderate serosang drainage. Periwound fragile with excoriation. LABS CBC: Lab Results Component Value Date WBC 7.9 10/28/2023 HGB 7.8 (L) 10/28/2023 HCT 28.4 (L) 10/28/2023 MCV 76.3 (L) 10/28/2023 PLT 430 10/28/2023 BMP: Lab Results Component Value Date NA 133 (L) 10/27/2023 K 4.4 10/27/2023 CL 99 10/27/2023 CO2 29 10/27/2023 BUN 17 10/27/2023 CREATININE 0.61 (L) 10/27/2023 PT/INR: No results found for: PROTIME, INR Prealbumin: No results found for: PREALBUMIN Albumin:No components found for: LABALBU Sed Rate:No results found for: SEDRATE Micro: No components found for: BC Assessment/Plan: Sacrum: Pressure Injury (Stage 4) - Clean with NS, pack with NS moist Kerlix then cover with DCD BID and PRN - Envella bed - Reposition q2hrs - Incontinent check q2hrs Colostomy home going orders: - 2 1/ pouch [place]: [address] [place]: [id number] - 2 1/4 flange [place]: [address] [place]: [id number] - Adapt ring [place]: 7805 [place]: [phone] - Skin prep [place]: 7917 Change pouch twice a week and PRN for leaking Empty pouch when 1/3 to 1/2 full and PRN Any questions or concerns please secure chat [facility] wound/ostomy. Thank you for the consult! I personally obtained the fournier and critical portions of the history and physical exam. I reviewed the labs, imaging studies, and electronic medical record. I reviewed the chart documentation and discussed the patient with treatment team members. I have edited the note to reflect my clinical findings and my assessment and plan. Please note, the time of this note does not reflect the time I saw this patient today, but the time of this documentaton. Portions of this note including HPI, ROS, impression/plan, and examination may have been copied forward from admission to today as to provide important historical information essential in contributing to medical decision making. Documentation has been reviewed and edited as necessary to support clinical decision making for today's visit and to reflect my own independent evaluation of this patient. Decision making for today's visit and to reflect my own independent evaluation of this patient. [facility] HEMOGLOBIN A1Con 10-28-2023 Glucose [Mass/Vol] 143 mg/dL Normal [facility] Comment on above: Order Comment: If no t done within the last 3 mos Performed By: #### L [id number] #### Hotel Housekeeper: BARBARA PURDY ([phone]) [facility] ([facility]) [address] [place] [address] HbA1c (Bld) [Mass fraction] 6.6 % High <5.7 [facility] Comment on above: Order Comment: If no t done within the last 3 mos Result Comment: Norm al less than 5.7% Prediabetes 5.7% to 6.4% Diabetes 6.5% or higher --HgbA1C levels may not be accurate in patients who have renal disease, received recent blood transfusions, are anemic, or who have dyshemoglobinemia. Performed By: #### L [id number] #### Hotel Housekeeper: BARBARA PURDY ([phone]) [facility] ([facility]) [address] [place] [address] IDNon 10-28-2023 IDN Problem: Knowledge Deficit Goal: Patient/family/caregiver demonstrates understanding of disease process, treatment plan, medications, and discharge instructions Outcome: Progressing Problem: Hemodynamic Status Goal: Patient's vitals signs are stable Outcome: Progressing The patient is Moderately Unstable - Medium risk of patient condition declining or worsening The patient's goals for the shift include To breath better The clinical goals for the shift include Pt safety Over the shift, the patient did not make progress toward the following goals. Barriers to progression include na. Recommendations to address these barriers include na. Normal [facility] IDN Problem: Knowledge Deficit Goal: Patient/family/caregiver demonstrates understanding of disease process, treatment plan, medications, and discharge instructions Outcome: Progressing Problem: Potential for Compromised Skin Integrity Goal: Skin Integrity is Maintained or Improved Outcome: Progressing Goal: Nutritional status is improving Outcome: Progressing Problem: Urinary Incontinence Goal: Perineal skin integrity is maintained or improved Outcome: Progressing Problem: Hemodynamic Status Goal: Patient's vitals signs are stable Outcome: Progressing Problem: Excessive Fluid Volume Goal: Fluid and electrolyte balance are achieved/maintained Outcome: Progressing Problem: Inadequate Gas Exchange Goal: Nutritional status is improving Outcome: Progressing Goal: Patient is adequately oxygenated and ventilation is improved Outcome: Progressing Problem: Activity Intolerance/Impaired Mobility Goal: Mobility/activity is maintained at optimum level for patient Outcome: Progressing Problem: Nutrition Goal: Nutritional status is improving Outcome: Progressing The patient is Moderately Stable - Low risk of patient condition declining or worsening Normal [facility] Laboratory - Chemistry and C hemistry - challengeon 10-28-2023 Glucose [Mass/Vol] 215 mg/dL High 70 - 100 mg/dL [facility] Procalcitonin [Mass/Vol] 0.31 ng/mL High 0.00 - 0.09 ng/mL [facility] Glucose [Mass/Vol] 176 mg/dL High 70 - 100 mg/dL [facility] Glucose [Mass/Vol] 162 mg/dL High 70 - 100 mg/dL [facility] Average glucose Estimated from glycated hemoglobin (Bld) [Mass/Vol] 143 mg/dL [facility] Magnesium [Mass/Vol] 1.9 mg/dL 1.6 - 2 .3 mg/dL [facility] Laboratory - Hematology and Cell countson 10-28-2023 HbA1c (Bld) [Mass fraction] 6.6 % High NINF - 5.7 % [facility] Comment on above: Normal less than 5.7 % Prediabetes 5.7% to 6.4% Diabetes 6.5% or higher --HgbA1C levels may not be accurate in patients who have renal disease, received recent blood transfusions, are anemic, or who have dyshemoglobinemia. MAGNESIUMon 10-28-2023 Magnesium [Mass/Vol] 1.9 mg/dL Normal 1.6-2.3 [facility] Comment on above: Performed By: #### L [id number] #### Hotel Housekeeper: BARBARA PURDY ([id number]) [facility] ([facility]) [address] [place] [address] [place] MRSA BY PCRon 10-28-2023 MRSA BY PCR STAPHYLOCOCCUS AUREU S Reference Not Detected Not Detected MECA GENE Reference Not Detected Not Detected ORDER COMMENTS: No Staphylococcus aureus detected. Negative nasal MRSA PCR has a high negative predictive value for MRSA pneumonia. Consider stopping Vancomycin if no other clinical indication. Contact Antimicrobial Stewardship for further recommendations. Staphylococcus aureus nasal screen by real-time PCR. This test was modified and its performance characteristics determined by [facility]. The U. [place]. Food and Drug Administration has not approved or cleared this test; however, FDA clearance or approval is not currently required for clinical use. The results are not intended to be used as the sole means for clinical diagnosis or patient management decisions. Normal [facility] Comment on above: Performed By: #### L [id number] #### Hotel Housekeeper: BARBARA PURDY ([phone]) [facility] ([facility]) [address] [place] [address] MRSA DNA ABIGAIL+probe Ql (Nose) on 10-28-2023 Interpretation and review of laboratory results Normal [facility] mecA gene Not detected Not Detected [facility] Staphylococcus aureus Not detected Not Detected [facility] No Staphylococcus au reus detected. Negative nasal MRSA PCR has a high negative predictive value for MRSA pneumonia. Consider stopping Vancomycin if no other clinical indication. Contact Antimicrobial Stewardship for further recommendations. Staphylococcus aureus nasal screen by real-time PCR. This test was modified and its performance characteristics determined by [facility]. The [place]. S. Food and Drug Administration has not approved or cleared this test; however, FDA clearance or approval is not currently required for clinical use. The results are not intended to be used as the sole means for clinical diagnosis or patient management decisions. [facility] Magnesium [Mass/Vol]on 10-27 Interpretation and review of laboratory results Normal [facility] No Panel Informationon 10-27 Interpretation and review of laboratory results Abnormal [facility] Performed by: [facility], [address] [place] [address] CLIA ID: [id number] [facility] Interpretation and review of laboratory results Abnormal [facility] Performed by: [facility], [address] [place] [id number] CLIA ID: [id number] [facility] Interpretation and review of laboratory results Abnormal [facility] Performed by: [facility], [address] [facility] [address] CLIA ID: [id number] [facility] Interpretation and review of laboratory results Abnormal [facility] Radiology Study observation (narrative) [facility] Radiology Study observation (narrative) [facility] Radiology Study observation (narrative) [facility] PROCALCITONIN TESTon 024 PROCALCITONIN 0.31 ng/mL High 0.00-0.09 [facility] Comment on above: Result Comment: MAHOGANY Ramírez COMMENTS: PCT <0.50 = Low risk of severe sepsis and/or septic shock. PCT >2.00 = High risk of severe sepsis and/or septic shock. Performed By: #### L [id number] ####Hotel Housekeeper: BARBARA PURDY ([phone])[facility] ([facility])[address] [place] [address] Procalcitonin [Mass/Vol]on 0 10-28-2023 Interpretation and review of laboratory results Abnormal [facility] PCT <0.50 = Low risk of severe sepsis and/or septic shock. PCT >2.00 = High risk of severe sepsis and/or septic shock. [facility] Progress Noteon 10-28-2023 Progress Note Vancomycin therapy h as been discontinued by Dr Moser on 10/28/23. Thank you for the consult. Pharmacy signing off for vancomycin dosing. Jd Carlin RPh, PharmD Date: 10/28/23 Time: 4:09 PM Normal [facility] Progress Note Nutrition Assessment Type and Reason for Visit: Initial, Wound, Positive Nutrition Screen Nutrition Recommendations/Plan: Current diet Adult diet Clear liquid ; Suggest diet advancement to goal of 75 g CHO controlled diet, can also consider need for 3-4 g LOW therapeutic restriction as well, sig BLE edema is noted Supplement(s): Added Apple and Mixed jha Ensure Clear 3x/day (provides 240 kcals, 8 grams protein, 8 oz per serving) per MNT protocol Once off CLD, please modify ONS to Chocolate Ensure Max Protein once daily (150 kcals, 30 g pro per ea.) vs. Ensure High Protein BID (160 kcals, 16 g pro per ea.) Please provide tray setup help, feeding assistance as needed Will continue to monitor labs, meds, po intakes and/or enteral nutrition tolerance, skin integrity, wt trends, and overall nutrition status - RD to follow weekly Malnutrition Assessment: Malnutrition Status: At risk for malnutrition (Comment) (PNA w/ loculated effusions not amendable to thora, CLD, Wound, UTI) Context: Acute Illness Findings of the 6 clinical characteristics of malnutrition: Energy Intake: 75% or less of estimated energy requirements for 7 or more days (CLD - pt started to feel ill on Sunday 10/22) Weight Loss: Unable to assess (limited wt hx) Body Fat Loss: Unable to assess Muscle Mass Loss: Unable to assess Fluid Accumulation: Moderate to Severe Extremities Mine Deputy Strength: Not Performed HISTORY OF PRESENT ILLNESS: Melissa is a 58 y.o. male with past medical history below who presents with chief complaint listed above. Hx significant for DMII, paraplegia, BATOOL, Hx of blood clots and resides at [facility]. (+) Chronic Bartlett, was recently found to have ESBL E coli UTI. Admitted 10/24 at [place] when he presented to ED for hypoxia and found to have pneumonia. Started on empiric Vancomycin/Merrem. Pt transferred to [facility] from [place] [facility] for CT Surgical specialty assessment for drainage of effusions. Will admit for further evaluation and management. - Transfer for Cardiothoracic surgical specialty assessment and drainage of loculations - Vanc/Merrem - reported allergy/intolerance to PCNs - Per documentation Ucx (+) for ESBL E coli, Klebiella and Proteus. Respiratory workup noted Covid/Influenza/RSV negative. Strep, Legionella negative. Nutrition Assessment: +Nutrition screen for wound. 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. Has a chronic Bartlett and colostomy. Recently found to have ESBL E coli UTI. Admitted 10/24 at [facility] when he presented to the ED for hypoxia. CTA suggestive of PNA w/ loculated right pleural effusion. Had negative urine strep pneumo/legionella and COVID/Flu/RSV. Thora attempted but there was no amenable pocket for drainage. Started on empiric vanc/merrem. Thoracentesis was attempted but there was no amenable pocket for drainage. T/fx to [facility] for CT surgical specialty assessment for drainage of loculations. CTS eval'd pt, no surgical interventions at this time. Pulm eval'd for PNA w/ reported mucus plugging - no indication for bronch at this time. He is on 4L NC at this time and in NAD. Cont autobipiap overnight and w/ naps. CXR today is notable for bilateral pleural effusions R > L, pulmonary vascular congestion. Pulm suspects IR guided chest tube with drainage will be necessary. 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 ID c/s pending for ATB therapy. Pt reports feeling ill since Tuesday. Has remains on CLD. A1c controlled. Estimated Daily Nutrient Needs: Energy Requirements Based On: Kcal/kg Weight Used for Energy Requirements: Adjusted Weight for Energy Calculation (kg): 62.23 kg Total Energy Requirements (kcals/day): 7823-0222 (25-30 kcals/kg AIBW) Weight Used for Protein Requirements: Adjusted (AIBW for obesity) Weight in Kg Used for Protein Requirements: 62.23 kg Estimated Total Protein (g/day): 75-94 (1.2-1.5 g/kg AIBW) Estimated Daily Total Fluid (ml/day): 1 ml/kcal or per MD Nutrition Related Findings: Wound Type: (per wound care: Sacrum: Pressure Injury (Stage 4)) Isolation Status: Contact Food Allergies: NKFA Room Service: Selective Qamar Scale Score: 13 Net IO Since Admission: -2,790 mL [10/28/23 1444] BLE Edema: Deep pitting, indentation remains for a short time Bowel Sounds (All Quadrants): Active Last BM Date: (Colostomy) Stool Appearance: Loose, Soft Stool Color: Brown, Green Nutrition History: Resides at [facility], Paraplegia, Colostomy, Chronic Bartlett Intake/Output Summary (Last 24 hours) at 10/28/2023 1444 Last data filed at 10/28/2023 1018 Gross per 24 hour Intake 1060 ml Output 3850 ml Net -2790 ml Labs/Meds Reviewed: amLODIPine, 10 mg, Oral, Daily [Held by provider] apixaban, 5 mg, Oral, BID carvedilol, 12.5 mg, Oral, BID WC cetirizine, 10 mg, Oral, Daily zheng (more content not included)... Normal [facility] XR CHEST 1 VIEWon 10-28-2023 XR CHEST 1 VIEW [facility] 1965 [id number] Exam Date/Time: 10/28/2023 08:02 Procedure: XR CHEST 1 VIEW Ordering Provider: ALDRIDGE OLGA Reason For Exam: pneumonia with effusions CLINICAL INFORMATION: Shortness of breath. Pleural effusions. Portable view of the chest at 0755 hours is provided without comparison. FINDINGS: The heart size is normal. Bilateral infiltrates and effusions are noted, right greater than left. There is prominence of the interstitium and central pulmonary vasculature. Gan rods span the thoracolumbar junction. IMPRESSION: 1. Bilateral infiltrates and effusions, right greater than left. 2. Prominence of the interstitium and central pulmonary vasculature consistent with mild to moderate congestive heart failure/fluid overload. Report Dictated on Electronically Signed By: Raphael Gonzales MD Electronically Signed Date/Time: 10/28/2023 9:[address] [facility] XR Chest Single viewon 10-27 1. Bilateral infiltr ates and effusions, right greater than left. 2. Prominence of the interstitium and central pulmonary vasculature consistent with mild to moderate congestive heart failure/fluid overload. Report Dictated on Electronically Signed By: Raphael Gonzales MD Electronically Signed Date/Time: 10/28/2023 9:01 AM EDT [facility] Patient Name: [facility]ELISSA DU : 1965 [id number] Exam Date/Time: 10/28/2023 08:02 Procedure: XR CHEST 1 VIEW Ordering Provider: ALDRIDGE OLGA Reason For Exam: pneumonia with effusions CLINICAL INFORMATION: Shortness of breath. Pleural effusions. Portable view of the chest at 0755 hours is provided without comparison. FINDINGS: The heart size is normal. Bilateral infiltrates and effusions are noted, right greater than left. There is prominence of the interstitium and central pulmonary vasculature. Gan rods span the thoracolumbar junction. [facility] Raphael Gonzales MD - 10/28/2023 Patient Name: MELISSA ELIAS : 1965 [id number] Exam Date/Time: 10/28/2023 08:02 Procedure: XR CHEST 1 VIEW Ordering Provider: ALDRIDGE OLGA Reason For Exam: pneumonia with effusions CLINICAL INFORMATION: Shortness of breath. Pleural effusions. Portable view of the chest at 0755 hours is provided without comparison. FINDINGS: The heart size is normal. Bilateral infiltrates and effusions are noted, right greater than left. There is prominence of the interstitium and central pulmonary vasculature. Gan rods span the thoracolumbar junction. IMPRESSION: 1. Bilateral infiltrates and effusions, right greater than left. 2. Prominence of the interstitium and central pulmonary vasculature consistent with mild to moderate congestive heart failure/fluid overload. Report Dictated on Electronically Signed By: Raphael Gonzales MD Electronically Signed Date/Time: 10/28/2023 9:01 AM EDT [facility] Radiology Study observation (narrative) [facility] XR Chest Single viewOrdered By: Raphael Gonzales on 10-28-2023 [facility] Work Phone: COMPREHENSIVE METABOLIC PANE Geoffrey 10-27-2023 Albumin [Mass/Vol] 3.1 g/dL Low 3.5-5.0 [facility] Comment on above: Performed By: #### L [id number] #### Hotel Housekeeper: BARBARA PURDY ([id number]) [facility] ([facility]) [address] [place] [address] ALP [Catalytic activity/Vol] 109 U/L Normal 38-126 [facility] Comment on above: Performed By: #### L [id number] #### Hotel Housekeeper: BARBARA PURDY ([id number]) [facility] ([facility]) [address] [place] [address] ALT [Catalytic activity/Vol] 15 U/L Normal 0-49 [facility] Comment on above: Performed By: #### L [id number] #### Hotel Housekeeper: BARBARA PURDY ([id number]) [facility] ([facility]) [address] [place] [address] [place] Anion gap [Moles/Vol] 4 mmol/L Normal 3-13 [facility] Comment on above: Performed By: #### L [id number] #### Hotel Housekeeper: BARBARA PURDY ([id number]) [facility] ([facility]) [address] [place] [address] [place] AST [Catalytic activity/Vol] 31 U/L Normal 15-46 [facility] Comment on above: Performed By: #### L [id number] #### Hotel Housekeeper: BARBARA PURDY ([id number]) [facility] ([facility]) [address] [place] [address] Bilirubin [Mass/Vol] 0.3 mg/dL Normal 0.2-1.3 [facility] Comment on above: Performed By: #### L [id number] #### Hotel Housekeeper: BARBARA PURDY ([id number]) [facility] ([facility]) [address] [place] [address] Calcium [Mass/Vol] 8.3 mg/dL Low 8.4-10.4 [facility] Comment on above: Performed By: #### L [id number] #### Hotel Housekeeper: BARBARA PURDY ([id number]) [facility] ([facility]) [address] [place] [address] [place] Chloride [Moles/Vol] 99 mmol/L Normal 98-107 [facility] Comment on above: Performed By: #### L [id number] #### Hotel Housekeeper: BARBARA PURDY ([id number]) [facility] ([facility]) [address] [place] [address] [place] CO2 [Moles/Vol] 29 mmol/L Normal 22-30 [facility] Comment on above: Performed By: #### L [id number] #### Hotel Housekeeper: BARBARA PURDY ([id number]) [facility] ([facility]) [address] [place] [address] [place] Creatinine [Mass/Vol] 0.61 mg/dL Low 0.66-1.25 [facility] Comment on above: Performed By: #### L [id number] #### Hotel Housekeeper: BARBARA PURDY ([id number]) [facility]) [address] [place] [address] GLOMERULAR FILTRATION RATE ML/MIN/1.73 SQ M.PREDICTED >90.0 Normal >60.0 [facility] Comment on above: Result Comment: Calc ulation based on the Chronic Kidney Disease Epidemiology Collaboration (CKD-EPI) equation refit without adjustment for race Performed By: #### L [id number] #### Hotel Housekeeper: BARBARA PURDY ([id number]) [facility] ([facility]) [address] [place] [address] Glucose [Mass/Vol] 154 mg/dL High 70-100 [facility] Comment on above: Performed By: #### L [id number] #### Hotel Housekeeper: BARBARA PURDY ([id number]) [facility] ([facility]) [address] [place] [address] Potassium [Moles/Vol] 4.4 mmol/L Normal 3.5-5.1 [facility] Comment on above: Performed By: #### L [id number] #### Hotel Housekeeper: BARBARA PURDY ([id number]) [facility] ([facility]) [address] [place] [address] Protein [Mass/Vol] 6.7 g/dL Normal 6.3-8.2 [facility] Comment on above: Performed By: #### L [id number] #### Hotel Housekeeper: BARBARA PURDY ([id number]) [facility] ([facility]) [address] [place] [address] [place] Sodium [Moles/Vol] 133 mmol/L Low 135-145 [facility] Comment on above: Performed By: #### L [id number] #### Hotel Housekeeper: BARBARA PURDY ([id number]) [facility] ([facility]) [address] [place] [address] [place] Urea nitrogen [Mass/Vol] 17 mg/dL Normal 9-20 [facility] Comment on above: Performed By: #### L [id number] #### Hotel Housekeeper: BARBARA PURDY ([id number]) [facility] ([address] Comprehensive metabolic 1998 panelon 10-27-2023 Albumin [Mass/Vol] 3.1 g/dL Low 3.5 - 5.0 g/dL [facility] ALP [Catalytic activity/Vol] 109 U/L 38 - 126 U/L [facility] ALT [Catalytic activity/Vol] 15 U/L 0 - 49 U/L [facility] Anion gap [Moles/Vol] 4 mmol/L 3 - 13 mmol/L [facility] AST [Catalytic activity/Vol] 31 U/L 15 - 46 U/L [facility] Bilirubin [Mass/Vol] 0.3 mg/dL 0.2 - 1 .3 mg/dL [facility] Calcium [Mass/Vol] 8.3 mg/dL Low 8.4 - 10. 4 mg/dL [facility] Chloride [Moles/Vol] 99 mmol/L 98 - 10 7 mmol/L [facility] CO2 [Moles/Vol] 29 mmol/L 22 - 30 mmol/L [facility] Creatinine [Mass/Vol] 0.61 mg/dL Low 0.66 - 1.25 mg/dL [facility] GFR/1.73 sq M.predicted MDRD (S/P/Bld) [Vol rate/Area] - PINF [facility] Comment on above: Calculation based on the Chronic Kidney Disease Epidemiology Collaboration (CKD-EPI) equation refit without adjustment for race Glucose [Mass/Vol] 154 mg/dL High 70 - 100 mg/dL [facility] Interpretation and review of laboratory results Abnormal [facility] Potassium [Moles/Vol] 4.4 mmol/L 3.5 - 5.1 mmol/L [facility] Protein [Mass/Vol] 6.7 g/dL 6.3 - 8.2 g/dL [facility] Sodium [Moles/Vol] 133 mmol/L Low 135 - 145 mmol/L [facility] Urea nitrogen [Mass/Vol] 17 mg/dL 9 - 20 mg/dL [facility] Consulton 10-27-2023 Consult Pharmacy Managed Vancomycin Dosing Service Consult Note Consult Date: 10/27/23 Patient Name: Melissa Elias Allergies: Patient has no known allergies. Age: 58 y.o. Sex: male Estimated body mass index is 48.98 kg/m? as calculated from the following: Height as of this encounter: 1.702 m (5' 7). Weight as of this encounter: 142 kg (312 lb 11.2 oz). DW: 142 kg Lab Results Component Value Date CREATININE 0.61 (L) 10/27/2023 CREATININE 0.48 (L) 01/04/2023 BUN 17 10/27/2023 BUN 14 01/04/2023 WBC 8.7 01/04/2023 Calculated CrCl: 125 mL/min (Cockcroft-Gault) Consulted By: Ellyn De León Infectious Diagnosis: Pneumonia (HAP) (AUC Goal 400-600 mg/L*hr) Random Vancomycin Level Due: 10/29/23 Antimicrobials: Patient recently received an antibiotic (last 12 hours) None Assessment/Plan: Doses, serum creatinine, and vancomycin levels interfaced automatically to [employer] and data has been analyzed and interpreted. Start Vancomycin 2000 mg ONCE followed by vancomycin 1750 mg every 12 hours based on patient age, weight, renal function, and infectious diagnosis (12.3 mg/kg). Predicted AUC = 499 mg/L*hr (goal 400-600 mg/L*hr) PAUC = 85% (probability that AUC is >400 mg/L*hr) Pconc = 7% (probability that Ctrough is above 20 mcg/mL (toxicity)) Will assess random level on 10/29/23 and adjust as appropriate. Trend serum creatinine. Orders placed. Thank you for this consult. Please secure text or call with questions. DATE: 10/27/23 TIME: 11:39 PM Margaret Dubois, PharmD Clinical Pharmacist Available via Secure Chat Normal [facility] Laboratory - Chemistry and C hemistry - challengeon 10-27-2023 Glucose [Mass/Vol] 180 mg/dL High 70 - 100 mg/dL [facility] No Panel Informationon 10-26 Interpretation and review of laboratory results Abnormal [facility] Performed by: [facility], [address] [place] [address], [place] [address] [place] ID: [id number] [facility] Radiology Study observation (narrative) [facility] Scarlett 10-18-2023 CNPN Telephone (UROLMD) ----- ELIASMELISSA COLEMAN ([id number]) 1965 M Date Time Provider Department 10/18/23 WILLEM GLASER During your visit today, we recorded the following information about you: Yaneli Sarkar, RN 10/18/2023 4:46 PM Signed Hamzah from [facility] Transportation Liaison calling as he got a call that we need to change his 11-03-2023 Cath change appt when a physician is in office. She was calling back to get that changed. I left a message with her. Please call her at [phone] to do Nurse visit when provider in office. Boaz Hernandez RN 10/19/2023 3:12 PM Signed Called and got patient rescheduled Yaneli Sarkar, RN 10/24/2023 1:46 PM Signed Nay Hui JORDAN WORKER calling to see about patient having questions about moving forward with the SPT placement. He was asking more about it and I advised that when patient is here seeing us on 11-24-2023 it is a day that Dr. Glaser is in office and we can let Dr. Glaser know if he wants to proceed or not. Faxed the OV notes from the 10-07-2023 visit to Nay at , fax confirmation received. Allergies As of Date: 10/18/2023 (No Known Allergies) Date Reviewed: 08/12/2023 Reviewed by: Michele Gonzalez, KATHRYN - Fully Assessed Reason for Visit: Nurse Visit Schedule Change [Other] Prescriptions as of 10/24/2023 - guaiFENesin (MUCINEX) 600 mg 12 hr tablet Take 1 tablet by mouth two times a day as needed (congestion). - gabapentin (NEURONTIN) 100 mg capsule Take 1 capsule by mouth every 8 hours for 30 days. - diphenhydrAMINE-Zinc Acetate (BENADRYL) cream Apply to affected area three times a day as needed for itching/rash. FOR EXTERNAL USE ONLY APPLY TO: BACK - sodium hypochlorite (DAKIN'S QUARTER STRENGTH) 0.125 % soln Irrigate 1 mL as instructed two times a day. FOR EXTERNAL USE ONLY APPLY TO: Sacrum wound with the dressing change - insulin glargine 100 unit/mL (3 mL) Inject 20 Units subcutaneously every morning. - furosemide (LASIX) 40 mg tablet Take 1 tablet by mouth every Tuesday and Tuesday. - morphine SR (MS CONTIN) 15 mg 12 hr tablet Take 1 tablet by mouth every 12 hours for 7 days. - insulin needles, DISPOSABLE, (BD INSULIN PEN NEEDLE UF) 31 gauge x 5/16 1 Each four times daily. - alcohol swabs Apply 1 application to affected area four times daily. - acetaminophen (TYLENOL) 500 mg tablet 2 tablets by ORAL/FEEDING TUBE route every 6 hours as needed for pain or fever (specify) (mild pain). - acetylcysteine (MUCOMYST) 200 mg/mL (20 %) solution Inhale 1 mL as instructed every 6 hours as needed (secretions). - albuterol (PROVENTIL) 2.5 mg /3 mL (0.083 %) nebulizer solution Use 3 mL via nebulizer every 6 hours as needed for wheezing/shortness of breath. - aspirin 81 mg chewable tablet 1 tablet by ORAL/FEEDING TUBE route once daily. - insulin lispro 100 unit/mL injection Inject 0-5 Units subcutaneously with meals and at bedtime. Scale 1 If Blood Glucose (mg/dL) is: Less than 110 Give 0 units 111-150 Give 0 units 151-200 Give 1 unit 201-250 Give 2 units 251-300 Give 3 units 301-350 Give 4 units 351-400 Give 5 units Greater than 400 Give 5 units and Notify Provider Notify provider if 2 consecutive blood glucose values in the previous 24 hours are greater than 250 mg/dL and there have been no changes to the insulin regimen in the previous 24 hours. - methocarbamol 1,000 mg tablet Take 1 tablet by mouth three times a day as needed (muscle spasms). - methyl salicylate 30% - menthol 10% (ICY HOT) 30-10 % cream Apply to affected area three times a day as needed (upper back back). - miconazole 2 % powder Apply 1 application to affected area two times a day. - ondansetron, PF, (ZOFRAN) 4 mg/2 mL soln Inject 4 mg intravenously every 6 hours as needed for nausea/vomiting. - orphenadrine (NORFLEX) 30 mg/mL injection Inject 1 mL intravenously every 12 hours. - pantoprazole DR (PROTONIX) 40 mg tablet Take 1 tablet by mouth daily at 6 am. - polyethylene glycol 3350 17 gram packet 1 Packet by ORAL/FEEDING TUBE route once daily. Dissolve dose in 4 - 8 ounces of liquid and take as directed. - rivaroxaban (XARELTO) 20 mg tablet Take 1 tablet by mouth daily with dinner. - senna (SENOKOT) 8.6 mg tab Take 1 tablet by mouth two times a day. - sodium chloride 0.65 % nasal spray Use 2 Sprays in each nostril as needed. - triamcinolone acetonide (KENALOG) 0.1 % cream Apply to affected area three times a day as needed. - naloxone 4 mg/actuation nasal spray (NARCAN) Use 1 spray in one nostril as needed for overdose. May repeat every 2 to 3 min in alternating nostrils until medical assistance is available - Miscellaneous Medical Supply 1 Each once daily. Kelli Lift Problem List As Of Date 10/18/2023 Noted Resolved Spondylolisthesis, lumbar region [M43.16] 05/21/2016 Osteomyelitis of lumbar spine (HCC) [M4 (more content not included)... Normal [facility] CNOVon 10-07-2023 CNOV Office Visit (UROLMD ) ----- MELISSA ELIAS ([id number]) 1965 M Date Time Provider Department 10/07/23 8:30 AM WILLEM GLASER During your visit today, we recorded the following information about you: Weight Height 131.5 kg 1.702 m Willem Glaser MD 10/07/2023 9:13 AM Signed [facility] UROLOGY CLINIC NOTE Patient: Melissa Elias Provider: Willem Glaser MD : 1965 Date of Service: 10/07/2023 PCP: Peter Thayer DO Chief complaint/Identification: Melissa Elias is a 58 year old male patient who presents for evaluation of urinary retention. ASSESSMENT: 1. Chronic indwelling Bartlett catheter - ICD9: V45.89, ICD10: Z97.8 (primary diagnosis) 2. Wound of sacral region, sequela - ICD9: 906.0, ICD10: S31.000S 3. Paraplegia (HCC) - ICD9: 344.1, ICD10: G82.20 Unclear reason for Bartlett catheter, possibly for sacral wound care. Patient states he was urinating on his own previously, although now he has decreased sensation below the waist. -Chronic catheter complicated by several traumatic catheter changes, requiring OR visit for gross hematuria, clot evacuation Reported history of traumatic Bartlett catheter insertions with need for clot evacuation 1 month ago PLAN: Catheter changed without issue today Will arrange monthly nursing visit for catheter changes Discussed placement of suprapubic tube instead of chronic urethral Bartlett catheter. This would allow for easier catheter changes, as well as the ability to cap the catheter and give a trial of void when sacral wound is healed. If able to void spontaneously, then suprapubic catheter could be removed and the tract closes quickly. -Patient will consider suprapubic tube, and let us know if he wants to proceed with that route in the future Willem Glaser MD HPI: Melissa Elias is a 58 year old year old male who is being seen for urinary retention. PMHx: paraplegia, chronic sacral wound, chronic urinary retention 10/07/2023 Presents for Bartlett catheter change. Nursing requested urology changes catheter as last month he had a traumatic Bartlett insertion, resulting in gross hematuria and need for cystoscopy/clot evacuation at outside hospital. 07/30/2023: C/S [place] - Hematuria after Bartlett malpositioned in prostatic urethra Patient has had his Bartlett catheter since last year. Reports it was placed because of his sacral wound. Reports he was urinating prior to catheter placement. Says he was not incontinent of urine. REVIEW OF SYSTEMS: A ROS was performed and pertinent negatives and positives can be found in the HPI. RELEVANT IMAGING STUDIES (most recent): No recent imaging LABS/INVESTIGATIONS: Urine Chemstrip: NA Creatinine Date Value Ref Range Status 08/12/2023 0.52 (L) 0.73 - 1.22 mg/dL Final 08/11/2023 0.54 (L) 0.73 - 1.22 mg/dL Final 08/09/2023 0.46 (L) 0.73 - 1.22 mg/dL Final 08/08/2023 0.44 (L) 0.73 - 1.22 mg/dL Final Hemoglobin Date Value 08/12/2023 7.8 g/dL 01/12/2021 9.1 G/DL Hematocrit (%) Date Value 08/12/2023 27.2 01/12/2021 29.0 HCT (%) Date Value 12/27/2022 28.9 WBC Date Value 08/12/2023 9.64 k/uL 12/27/2022 5.3 K/uL 01/12/2021 7.8 K/CUMM No results found for: PSA, PSAPER HISTORIES No family history on file. PAST MEDICAL HISTORY Diagnosis Date Back pain BMI 50.0-59.9, adult (HCC) HTN (hypertension) Obesity PAST SURGICAL HISTORY Procedure Laterality Date PAST SURGICAL HISTORY OF 08/25/2016 L4-5 TLIF [place] L4-5 DOS 08/25/2016 second surgery 03-09-17 PICC LINE INSERTION (PICC TEAM) (AK) 12/01/2022 TONSILLECTOMY AND ADENOIDECTOMY HX Social History Tobacco Use Smoking status: Never Passive exposure: Never Smokeless tobacco: Never Vaping Use Vaping Use: Never used Substance Use Topics Alcohol use: No Drug use: No ALLERGIES No Known Allergies Current Outpatient Medications Medication Sig Dispense Refill guaiFENesin (MUCINEX) 600 mg 12 hr tablet Take 1 tablet by mouth two times a day as needed (congestion). diphenhydrAMINE-Zinc Acetate (BENADRYL) cream Apply to affected area three times a day as needed for itching/rash. FOR EXTERNAL USE ONLY APPLY TO: BACK sodium hypochlorite (DAKIN'S QUARTER STRENGTH) 0.125 % soln Irrigate 1 mL as instructed two times a day. FOR EXTERNAL USE ONLY APPLY TO: Sacrum wound with the dressing change insulin glargine 100 unit/mL (3 mL) Inject 20 Units subcutaneously every morning. furosemide (LASIX) 40 mg tablet Take 1 tablet by mouth every Tuesday and Tuesday. insulin needles, DISPOSABLE, (BD INSULIN PEN NEEDLE UF) 31 gauge x 5/16 1 Each four times daily. 100 Each 0 alcohol swabs Apply 1 application to affected area four times daily. 100 Each 1 acetaminophen (TYLENOL) 500 mg tablet 2 tablets by (more content not included)... Normal [facility] Absolute lymphocyte countOrd ered By: Palmira Johnson on 09-13-2023 Lymphocytes Auto (Unsp spec) [#/Vol] 2.75 10*3/uL 0.83-4.51 [facility] Automated lymphocyte count a s percentage of total leukocytesOrdered By: Palmira Johnson on 09-13-2023 Lymphocytes/100 WBC Auto (Unsp spec) 23.7 % 19-41 [facility] Basophil percentageOrdered B y: Palmira Johnson on 09-13-2023 Basophil percentage 3.5 mg/dL 2.5-4.9 [facility] Bas[facility]/100 WBC (Bld) 0.5 % 0-1 [facility] Chloride [Moles/Vol] 101 mmol[facility]L 98-107 [facility] Eosinophils/100 WBC (Bld) 6.9 % 0-5 [facility] Glucose [Mass/Vol] 223 mg/dL 74-106 [facility] Comment on above: Glucose result great er than or equal to 200 mg/dLsuggests DIABETES MELLITUS per A.D.A. criteria. Hemoglobin (Bld) [Mass/Vol] 7.0 g/dL 13.0-16.5 [facility] Monocytes/100 WBC (Bld) 9.2 % 0-10 [facility] Neutrophils (Bld) [#/Vol] 6.7 10*3/uL 2.0-7.7 [facility] Neutrophils/100 WBC (Bld) 57.9 % 47-70 [facility] Potassium [Moles/Vol] 4.2 mmol/L 3.5-5.1 [facility] Sodium [Moles/Vol] 136 mmol/L 136-145 [facility] WBC (Bld) [#/Vol] 11.6 10*3/uL 4.4-11.0 [facility] COVID-19 virus antigen assay Ordered By: Palmira Johnson on 09-13-2023 SARS-CoV-2 (COVID-19) Ag IA.rapid Ql (Resp) [facility] Determination of erythrocyte mean corpuscular volume (MCV)Ordered By: Palmira Johnson on 09-13-2023 MCV (RBC) [Entitic vol] 77.5 fL 80-94 [facility] Erythrocyte distribution wid th ratioOrdered By: Palmira Johnson on 09-13-2023 Erythrocyte distribution width (RBC) [Ratio] 21.1 % 11.6-14.6 [facility] Erythrocyte distribution wid th standard deviationOrdered By: Palmira Johnson on 09-13-2023 Erythrocyte distribution width (RBC) [Entitic vol] 58.8 fL 35.1-43.9 [facility] Hematocrit Auto (Bld) [Volum e fraction]Ordered By: Palmira Johnson on 09-13-2023 Hematocrit (Bld) [Volume fraction] 24.5 % 40-54 [facility] Immature granulocytes/100 WB C Auto (Bld)Ordered By: Palmira Johnson on 09-13-2023 Immature granulocytes/100 WBC (Bld) 1.800 % 0.0-0.9 [facility] Comment on above: IG% - Immature Granu locytes (promyelocytes, myelocytes and metamyelocytes) > 1% indicates that a LEFT SHIFT is Present. Laboratory - Chemistry and C hemistry - challengeOrdered By: Palmira Johnson on 09-13-2023 CO2 [Moles/Vol] 29.0 mmol/L 21.0-32.0 [facility] Magnesium [Mass/Vol] 1.8 mg/dL 1.6-2.6 [facility] Urea nitrogen/Creatinine [Mass ratio] 26.9 mg/mg 10-20 [facility] Laboratory - Hematology and Cell countsOrdered By: Palmira Johnson on 09-13-2023 MCH (RBC) [Entitic mass] 22.2 pg 27.0-32.0 [facility] MCHC (RBC) [Mass/Vol] 28.6 g/dL 32-36 [facility] Nucleated RBC/100 WBC (Bld) [Ratio] 0 % 0-5 [facility] Platelet mean volume (Bld) [Entitic vol] 9.0 fL 6.2-12.0 [facility] Platelets (Bld) [#/Vol] 442 10*3/uL 150-450 [facility] No Panel InformationOrdered By: Palmira Johnson on 09-13-2023 Estimated Creatinine Clearance Calc 210.45 ml/min [facility] Estimated GFR (MDRD) Amer 211 mL/min >60 [facility] Comment on above: GFR Calc Estimated GFR (MDRD) Non-Af Amer 174 mL/min >60 [facility] Comment on above: Non- GFR Calc RBC Auto (Bld) [#/Vol]Ordere d By: Palmira Johnson on 09-13-2023 RBC (Bld) [#/Vol] 3.16 10*6/uL 4.6-6.2 [facility] Serum or plasma calcium sarah urement (mass/volume)Ordered By: Palmira Johnson on 09-13-2023 Calcium [Mass/Vol] 8.4 mg/dL 8.5-10.1 [facility] Serum or plasma creatinine m easurement (mass/volume)Ordered By: Palmira Johnson on 09-13-2023 Creatinine [Mass/Vol] 0.52 mg/dL 0.70-1.30 [facility] Comment on above: The validity of the calculated GFR & GFRAA in patients over 70 years has not been determined. Clinical correlation is essential. Serum or plasma urea nitroge n measurement (mass/volume)Ordered By: Palmira Johnson on 09-13-2023 Urea nitrogen [Mass/Vol] 14 mg/dL 7-18 [facility] Thin prep Papanicolaou smear with manual screeningOrdered By: Palmira Johnson on 09-13-2023 Thin prep Papanicolaou smear with manual screening 162 mg/dL 74-106 [facility] Comment on above: MANAGEMENT OF PATIEN T CARE PER NURSING PROTOCOL Thin prep Papanicolaou smear with manual screening 6 5-15 [facility] Blood manual differential co mment interpretation (narrative result)Ordered By: Vanessa Matias on 09-11-2023 Manual differential comment Guerrero (Bld) [Interp] See comment [facility] Comment on above: MICROCYTOSIS 2+ Blood polychromasia detectio n by light microscopyOrdered By: Vanessa Matias on 09-10-2023 Polychromasia LM Ql (Bld) 2+ [facility] Hypochromatic red blood cell detectionOrdered By: Vanessa Matias on 09-10-2023 Hypochromia Ql (Bld) 2+ [facility] RBC morphologyOrdered By: Lara Matias on 09-10-2023 RBC morphology finding Nom (Bld) 2+ [facility] Comment on above: DIMORPHIC POPULATION Red blood cell stomatocyte d etectionOrdered By: Vanessa Matias on 09-10-2023 Stomatocytes LM Ql (Bld) 1+ [facility] Stool gastrointestinal hemog lobin detection by immunologic methodOrdered By: Vanessa Matias on 09-10-2023 Lower GI hemoglobin IA Ql (Stl) [facility] Basophil percentageOrdered B y: Vanessa Matias on 09-09-2023 Basophil percentage >100 SEEN /hpf 0-5 [facility] Bilirubin Test strip Ql (U)O rdered By: Vanessa Matias on 09-09-2023 Bilirubin Ql (U) Negative Negative [facility] Culture, urineOrdered By: Lara Matias on 09-09-2023 Bacteria identified Cx Nom (U) Klebsiella pneumoniae sp pneum [facility] Bacteria identified Cx Nom (U) Proteus mirabilis [facility] Ketones Test strip Ql (U)Ord ered By: Vanessa Matias on 09-09-2023 Ketones Ql (U) Negative Negative [facility] Mucus LM Ql (Urine sed)Order ed By: Vanessa Matias on 09-09-2023 Mucus Ql (Urine sed) 0 SEEN /hpf [facility] Nitrite Test strip Ql (U)Ord ered By: Vanessa Matias on 09-09-2023 Nitrite Ql (U) Positive Negative [facility] No Panel InformationOrdered By: Vanessa Matias on 09-09-2023 Urine RBC 0 SEEN /hpf 0-5 [facility] Protein Test strip Ql (U)Ord ered By: Vanessa Matais on 09-09-2023 Protein Ql (U) 30 mg/dl Negative [facility] Review by pathologistOrdered By: Vanessa Matias on 09-09-2023 Pathologist review Guerrero (Unsp spec) [Interp] Reviewed [facility] Comment on above: Previous reported re sult: Stephany whitfield Edited by: ANGELICA on 09/09/23:1345Leukocytosis.Microcytic anemia.Clinical correlation necessary.Stevan Goff M.D. 09/09/23 AMENDED REPORT 09/09/23 1345 PATH REV previously reported as: Stephany whitfield Squamous epithelial cells de tection in urine sediment by light microscopyOrdered By: Vanessa Matias on 09-09-2023 Epithelial cells.squamous LM Ql (Urine sed) 0-5 SEEN /hpf 0-5 [facility] Urine blood detectionOrdered By: Vanessa Matias on 09-09-2023 RBC Ql (U) 150 /ul Negative [facility] Urine clarityOrdered By: Heidi Matias on 09-09-2023 Clarity (U) Cloudy Clear [facility] Urine color determinationOrd ered By: Vanessa Matias on 09-09-2023 Color (U) Yellow Yellow [facility] Urine glucose detectionOrder ed By: Vanessa Matias on 09-09-2023 Glucose Ql (U) Normal mg/dl Normal [facility] Urine leukocyte esterase det ection by dipstickOrdered By: Vanessa Matias on 09-09-2023 Leukocyte esterase Test strip Ql (U) 500 /ul Negative [facility] Urine pHOrdered By: Vanessa Matias on 09-09-2023 pH (U) 6.0 [pH] 5.0 - 8.0 [facility] Urine sediment bacteria coun t by microscopy (number/high power field)Ordered By: Vanessa Matias on 09-09-2023 Bacteria LM.HPF (Urine sed) [#/Area] 2 /[HPF] None Seen [facility] Urine specific gravity measu rementOrdered By: Vanessa Matias on 09-09-2023 Specific gravity (U) [Rel density] 1.020 1.002-1.030 [facility] Urine urobilinogen measureme ntOrdered By: Vanessa Matias on 09-09-2023 Urobilinogen Ql (U) 1 mg/dl Normal [facility] Laboratory - Hematology and Cell countsOrdered By: Vanessa Matias on 09-06-2023 Anisocytosis Ql (Bld) 2+ [facility] Basophil percentageOrdered B y: Terri Nino on 09-01-2023 Bilirubin [Mass/Vol] 0.60 mg/dL 0.20-1.00 [facility] Comment on above: For patients on eltr ombopag therapy, use of Dimension [place] TBIL is not recommended. Protein [Mass/Vol] 6.6 g/dL 6.4-8.2 [facility] Blood platelet adequacy dete ction by light microscopyOrdered By: Terri Nino on 09-01-2023 Platelets LM Ql (Bld) MOD INC ADEQ [facility] Laboratory - Chemistry and C hemistry - challengeOrdered By: Terri Nino on 09-01-2023 Albumin/Globulin [Mass ratio] 0.5 {ratio} 0.9-2.4 [facility] ALP [Catalytic activity/Vol] 91 U/L 45-117 [facility] ALT [Catalytic activity/Vol] 15 U/L 16-61 [facility] Globulin (S) [Mass/Vol] 4.4 g/dL 2.2-4.2 [facility] Thin prep Papanicolaou smear with manual screeningOrdered By: Terri Nino on 09-01-2023 Thin prep Papanicolaou smear with manual screening 2.2 g/dL 3.2-5.0 [facility] Thin prep Papanicolaou smear with manual screening 10 U/L 15-37 [facility] Absolute lymphocyte countOrd ered By: Ranjan Mistry on 08-31-2023 Lymphocytes Auto (Unsp spec) [#/Vol] 7.02 10*3/uL 0.83-4.51 [facility] Automated lymphocyte count a s percentage of total leukocytesOrdered By: Ranjan Mistry on 08-31-2023 Lymphocytes/100 WBC Auto (Unsp spec) 27.5 % 19-41 [facility] Basophil percentageOrdered B y: Ranjan Mistry on 08-31-2023 Basophil percentage 5-10 SEEN /hpf 0-5 [facility] Basophils/100 WBC (Bld) 0.7 % 0-1 [facility] Chloride [Moles/Vol] 98 mmol/L 98-107 [facility] Eosinophils/100 WBC (Bld) 2.0 % 0-5 [facility] Glucose [Mass/Vol] 211 mg/dL 74-106 [facility] Comment on above: Glucose result great er than or equal to 200 mg/dLsuggests DIABETES MELLITUS per A.D.A. criteria. Hemoglobin (Bld) [Mass/Vol] 8.2 g/dL 13.0-16.5 [facility] Monocytes/100 WBC (Bld) 7.4 % 0-10 [facility] Neutrophils (Bld) [#/Vol] 15.7 10*3/uL 2.0-7.7 [facility] Neutrophils/100 WBC (Bld) 61.5 % 47-70 [facility] Potassium [Moles/Vol] 4.8 mmol/L 3.5-5.1 [facility] Sodium [Moles/Vol] 132 mmol/L 136-145 [facility] WBC (Bld) [#/Vol] 25.5 10*3/uL 4.4-11.0 [facility] Bilirubin Test strip Ql (U)O rdered By: Ranjan Mistry on 08-31-2023 Bilirubin Ql (U) Negative Negative [facility] Determination of erythrocyte mean corpuscular volume (MCV)Ordered By: Ranjan Mistry on 08-31-2023 MCV (RBC) [Entitic vol] 75.5 fL 80-94 [facility] Erythrocyte distribution wid th ratioOrdered By: Ranjan Mistry on 08-31-2023 Erythrocyte distribution width (RBC) [Ratio] 21.6 % 11.6-14.6 [facility] Erythrocyte distribution wid th standard deviationOrdered By: Ranjan Mistry on 08-31-2023 Erythrocyte distribution width (RBC) [Entitic vol] 58.0 fL 35.1-43.9 [facility] Hematocrit Auto (Bld) [Volum e fraction]Ordered By: Ranjan Mistry on 08-31-2023 Hematocrit (Bld) [Volume fraction] 28.3 % 40-54 [facility] Hypochromatic red blood cell detectionOrdered By: Ranjan Mistry on 08-31-2023 Hypochromia Ql (Bld) 1+ [facility] Immature granulocytes/100 WB C Auto (Bld)Ordered By: Ranjan Mistry on 08-31-2023 Immature granulocytes/100 WBC (Bld) 0.900 % 0.0-0.9 [facility] Comment on above: IG% - Immature Granu locytes (promyelocytes, myelocytes and metamyelocytes) > 1% indicates that a LEFT SHIFT is Present. Ketones Test strip Ql (U)Ord ered By: Ranjan Mistry on 08-31-2023 Ketones Ql (U) 5 mg/dl Negative [facility] Laboratory - Chemistry and C hemistry - challengeOrdered By: Ranjan Mistry on 08-31-2023 CO2 [Moles/Vol] 26.0 mmol/L 21.0-32.0 [facility] Urea nitrogen/Creatinine [Mass ratio] 22.6 mg/mg 10-20 [facility] Laboratory - Hematology and Cell countsOrdered By: Ranjan Mistry on 08-31-2023 Anisocytosis Ql (Bld) 2+ [facility] MCH (RBC) [Entitic mass] 21.9 pg 27.0-32.0 [facility] MCHC (RBC) [Mass/Vol] 29.0 g/dL 32-36 [facility] Nucleated RBC/100 WBC (Bld) [Ratio] 0 % 0-5 [facility] Platelet mean volume (Bld) [Entitic vol] 8.8 fL 6.2-12.0 [facility] Platelets (Bld) [#/Vol] 689 10*3/uL 150-450 [facility] Mucus LM Ql (Urine sed)Order ed By: Ranjan Mistry on 08-31-2023 Mucus Ql (Urine sed) 0 SEEN /hpf [facility] Nitrite Test strip Ql (U)Ord ered By: Ranjan Mistry on 08-31-2023 Nitrite Ql (U) Negative Negative [facility] No Panel InformationOrdered By: Ranjan Mistry on 08-31-2023 Urine RBC > 100 SEEN /hpf 0-5 [facility] Comment on above: Microscopic field is filled. Other elements may be obscured. Estimated Creatinine Clearance Calc 101.35 ml/min [facility] Estimated GFR (MDRD) Amer 85 mL/min >60 [facility] Comment on above: GFR Calc Estimated GFR (MDRD) Non-Af Amer 70 mL/min >60 [facility] Comment on above: Non- GFR Calc Protein Test strip Ql (U)Ord ered By: Ranjan Mistry on 08-31-2023 Protein Ql (U) 500 mg/dl Negative [facility] RBC Auto (Bld) [#/Vol]Ordere d By: Ranjan Mistry on 08-31-2023 RBC (Bld) [#/Vol] 3.75 10*6/uL 4.6-6.2 [facility] Review by pathologistOrdered By: Ranjan Mistry on 08-31-2023 Pathologist review Guerrero (Unsp spec) [Interp] Reviewed [facility] Comment on above: Previous reported re sult: Stephany whitfield Edited by: ANGELICA on 08/31/23:1432Leukocytosis.Macrocytic anemia.Thrombocytosis.Clinical correlation necessary.Stevan Goff M.D. 08/31/23 AMENDED REPORT 08/31/23 1432 PATH REV previously reported as: Stephany whitfield Serum or plasma calcium sarah urement (mass/volume)Ordered By: Ranjan Mistry on 08-31-2023 Calcium [Mass/Vol] 9.1 mg/dL 8.5-10.1 [facility] Serum or plasma creatinine m easurement (mass/volume)Ordered By: Ranjan Mistry on 08-31-2023 Creatinine [Mass/Vol] 1.15 mg/dL 0.70-1.30 [facility] Comment on above: The validity of the calculated GFR & GFRAA in patients over 70 years has not been determined. Clinical correlation is essential. Serum or plasma urea nitroge n measurement (mass/volume)Ordered By: Ranjan Mistry on 08-31-2023 Urea nitrogen [Mass/Vol] 26 mg/dL 7-18 [facility] Squamous epithelial cells de tection in urine sediment by light microscopyOrdered By: Ranjan Mistry on 08-31-2023 Epithelial cells.squamous LM Ql (Urine sed) 0-5 SEEN /hpf 0-5 [facility] Thin prep Papanicolaou smear with manual screeningOrdered By: Ranjan Mistry on 08-31-2023 Thin prep Papanicolaou smear with manual screening 2+ [facility] Thin prep Papanicolaou smear with manual screening 8 5-15 [facility] Urine blood detectionOrdered By: Ranjan Mistry on 08-31-2023 RBC Ql (U) 250 /ul Negative [facility] Urine clarityOrdered By: Mark Mistry on 08-31-2023 Clarity (U) Cloudy Clear [facility] Urine color determinationOrd ered By: Ranjan Mistry on 08-31-2023 Color (U) Red Yellow [facility] Urine glucose detectionOrder ed By: Ranjan Mistry on 08-31-2023 Glucose Ql (U) Normal mg/dl Normal [facility] Urine leukocyte esterase det ection by dipstickOrdered By: Ranjan Mistry on 08-31-2023 Leukocyte esterase Test strip Ql (U) Negative Negative [facility] Urine pHOrdered By: Ranjan ayala on 08-31-2023 pH (U) 7.0 [pH] 5.0 - 8.0 [facility] Urine sediment bacteria coun t by microscopy (number/high power field)Ordered By: Ranjan Mistry on 08-31-2023 Bacteria LM.HPF (Urine sed) [#/Area] RARE /hpf None Seen [facility] Urine specific gravity measu rementOrdered By: Ranjan Mistry on 08-31-2023 Specific gravity (U) [Rel density] 1.010 1.002-1.030 [facility] Urine urobilinogen measureme ntOrdered By: Ranjan Mistry on 08-31-2023 Urobilinogen Ql (U) Normal mg/dl Normal [facility] Absolute lymphocyte countOrd ered By: Rocio Bartlett on 08-30-2023 Lymphocytes Auto (Unsp spec) [#/Vol] 2.81 10*3/uL 0.83-4.51 [facility] Automated lymphocyte count a s percentage of total leukocytesOrdered By: Rocio Bartlett on 08-30-2023 Lymphocytes/100 WBC Auto (Unsp spec) 24.9 % 19-41 [facility] Basophil percentageOrdered B y: Rocio Bartlett on 08-30-2023 Basophils/100 WBC (Bld) 0.7 % 0-1 [facility] Bilirubin [Mass/Vol] 0.30 mg/dL 0.20-1.00 [facility] Comment on above: For patients on eltr ombopag therapy, use of Dimension [place] TBIL is not recommended. Chloride [Moles/Vol] 103 mmol/L 98-107 [facility] Eosinophils/100 WBC (Bld) 6.8 % 0-5 [facility] Glucose [Mass/Vol] 157 mg/dL 74-106 [facility] Comment on above: Fasting Glucose resu lt greater than or equal to 126 mg/dL suggests DIABETES MELLITUS per A.D.A. criteria. Hemoglobin (Bld) [Mass/Vol] 8.2 g/dL 13.0-16.5 [facility] Monocytes/100 WBC (Bld) 8.1 % 0-10 [facility] Neutrophils (Bld) [#/Vol] 6.6 10*3/uL 2.0-7.7 [facility] Neutrophils/100 WBC (Bld) 58.6 % 47-70 [facility] Potassium [Moles/Vol] 4.0 mmol/L 3.5-5.1 [facility] Protein [Mass/Vol] 7.1 g/dL 6.4-8.2 [facility] Sodium [Moles/Vol] 137 mmol/L 136-145 [facility] WBC (Bld) [#/Vol] 11.3 10*3/uL 4.4-11.0 [facility] Blood manual differential co mment interpretation (narrative result)Ordered By: Rocio Bartlett on 08-30-2023 Manual differential comment Guerrero (Bld) [Interp] SCANNED [facility] Blood polychromasia detectio n by light microscopyOrdered By: Rocio Bartlett on 08-30-2023 Polychromasia LM Ql (Bld) RARE [facility] Determination of erythrocyte mean corpuscular volume (MCV)Ordered By: Rocio Bartlett on 08-30-2023 MCV (RBC) [Entitic vol] 76.8 fL 80-94 [facility] Erythrocyte distribution wid th ratioOrdered By: [place]annyrob[place]fernanda Bartlett on 08-30-2023 Erythrocyte distribution width (RBC) [Ratio] 21.3 % 11.6-14.6 [facility] Erythrocyte distribution wid th standard deviationOrdered By: [facility] on 08-30-2023 Erythrocyte distribution width (RBC) [Entitic vol] 59.1 fL 35.1-43.9 [facility] Erythrocyte sedimentation ra teOrdered By: [facility] Bart[facility] on 08-30-2023 ESR (Bld) [Velocity] 58 mm/h 0-20 [facility] Hematocrit Auto (Bld) [Volum e fraction]Ordered By: [facility] on 08-30-2023 Hematocrit (Bld) [Volume fraction] 29.4 % 40-54 [facility] Immature granulocytes/100 WB C Auto (Bld)Ordered By: [facility] Corneliusmyranda on 08-30-2023 Immature granulocytes/100 WBC (Bld) 0.900 % 0.0-0.9 [facility] Comment on above: IG% - Immature Granu locytes (promyelocytes, myelocytes and metamyelocytes) > 1% indicates that a LEFT SHIFT is Present. Laboratory - Chemistry and C hemistry - challengeOrdered By: Rocio Bartlett on 08-30-2023 Albumin/Globulin [Mass ratio] 0.6 {ratio} 0.9-2.4 [facility] ALP [Catalytic activity/Vol] 100 U/L 45-117 [facility] ALT [Catalytic activity/Vol] 18 U/L 16-61 [facility] CO2 [Moles/Vol] 29.0 mmol/L 21.0-32.0 [facility] Globulin (S) [Mass/Vol] 4.5 g/dL 2.2-4.2 [facility] Urea nitrogen/Creatinine [Mass ratio] 32.2 mg/mg 10-20 [facility] Laboratory - Hematology and Cell countsOrdered By: fanny[place]fernanda Bartlett on 08-30-2023 Anisocytosis Ql (Bld) 2+ [facility] MCH (RBC) [Entitic mass] 21.4 pg 27.0-32.0 [facility] MCHC (RBC) [Mass/Vol] 27.9 g/dL 32-36 [facility] Nucleated RBC/100 WBC (Bld) [Ratio] 0 % 0-5 [facility] Platelet mean volume (Bld) [Entitic vol] 9.3 fL 6.2-12.0 [facility] Platelets (Bld) [#/Vol] 495 10*3/uL 150-450 [facility] No Panel InformationOrdered By: Rocio Bartlett on 08-30-2023 C-Reactive Protein Extended Range 67.10 mg/L 0.0-3.0 [facility] Comment on above: C-Reactive Protein ( CRP) provides useful information for thediagnosis, therapy and monitoring of inflammatory processesand associated diseases. For the evaluation of Relative Riskfor Cardiovascular Disease, a High Sensitivity CRP (HSCRP)should be ordered. Estimated GFR (MDRD) Amer 208 mL/min >60 [facility] Comment on above: GFR Calc Estimated GFR (MDRD) Non-Af Amer 172 mL/min >60 [facility] Comment on above: Non- GFR Calc RBC Auto (Bld) [#/Vol]Ordere d By: Rocio Bartlett on 08-30-2023 RBC (Bld) [#/Vol] 3.83 10*6/uL 4.6-6.2 [facility] Serum or plasma calcium sarah urement (mass/volume)Ordered By: Rocio Bartlett on 08-30-2023 Calcium [Mass/Vol] 8.9 mg/dL 8.5-10.1 [facility] Serum or plasma creatinine m easurement (mass/volume)Ordered By: Rocio Bartlett on 08-30-2023 Creatinine [Mass/Vol] 0.53 mg/dL 0.70-1.30 [facility] Comment on above: The validity of the calculated GFR & GFRAA in patients over 70 years has not been determined. Clinical correlation is essential. Serum or plasma urea nitroge n measurement (mass/volume)Ordered By: Rocio Bartlett on 08-30-2023 Urea nitrogen [Mass/Vol] 17 mg/dL 7-18 [facility] Thin prep Papanicolaou smear with manual screeningOrdered By: Rocio Dhruv on 08-30-2023 Thin prep Papanicolaou smear with manual screening 2.6 g/dL 3.2-5.0 [facility] Thin prep Papanicolaou smear with manual screening 14 U/L 15-37 [facility] Thin prep Papanicolaou smear with manual screening 5 5-15 [facility] Whole blood hemoglobin A1c/t otal hemoglobin ratio (mass fraction)Ordered By: Rocio Bartlett on 08-30-2023 HbA1c (Bld) [Mass fraction] 5.8 % 3.8-5.6 [facility] Comment on above: Normal < 5.7 % Predi abetic 5.7 - 6.4 % Diabetic >or= 6.5 % Please note range changes. Absolute lymphocyte countOrd ered By: fannyrobstownfernanda Bartlett on 08-29-2023 Lymphocytes Auto (Unsp spec) [#/Vol] 2.62 10*3/uL 0.83-4.51 [facility] Automated lymphocyte count a s percentage of total leukocytesOrdered By: sylvie Bartlett on 08-29-2023 Lymphocytes/100 WBC Auto (Unsp spec) 26.4 % 19-41 [facility] Basophil percentageOrdered B y: Corettafannyamorfernanda Bartlett on 08-29-2023 Basophils/100 WBC (Bld) 1.0 % 0-1 [facility] Chloride [Moles/Vol] 102 mmol/L 98-107 [facility] Eosinophils/100 WBC (Bld) 6.9 % 0-5 [facility] Glucose [Mass/Vol] 153 mg/dL 74-106 [facility] Comment on above: Fasting Glucose resu lt greater than or equal to 126 mg/dL suggests DIABETES MELLITUS per A.D.A. criteria. Hemoglobin (Bld) [Mass/Vol] 7.9 g/dL 13.0-16.5 [facility] Monocytes/100 WBC (Bld) 8.9 % 0-10 [facility] Neutrophils (Bld) [#/Vol] 5.5 10*3/uL 2.0-7.7 [facility] Neutrophils/100 WBC (Bld) 55.8 % 47-70 [facility] Potassium [Moles/Vol] 3.9 mmol/L 3.5-5.1 [facility] Sodium [Moles/Vol] 137 mmol/L 136-145 [facility] WBC (Bld) [#/Vol] 9.9 10*3/uL 4.4-11.0 [facility] Determination of erythrocyte mean corpuscular volume (MCV)Ordered By: Rocio Bartlett on 08-29-2023 MCV (RBC) [Entitic vol] 76.9 fL 80-94 [facility] Erythrocyte distribution wid th ratioOrdered By: [facility] Corneliusmyranda on 08-29-2023 Erythrocyte distribution width (RBC) [Ratio] 21.2 % 11.6-14.6 [facility] Erythrocyte distribution wid th standard deviationOrdered By: [facility] Reardonmyranda on 08-29-2023 Erythrocyte distribution width (RBC) [Entitic vol] 59.2 fL 35.1-43.9 [facility] Erythrocyte sedimentation ra teOrdered By: Rocio Bartlett on 08-29-2023 ESR (Bld) [Velocity] 65 mm/h 0-20 [facility] Hematocrit Auto (Bld) [Volum e fraction]Ordered By: Rocio Bartlett on 08-29-2023 Hematocrit (Bld) [Volume fraction] 28.0 % 40-54 [facility] Immature granulocytes/100 WB C Auto (Bld)Ordered By: fannyrobstownfernanda Bartlett on 08-29-2023 Immature granulocytes/100 WBC (Bld) 1.000 % 0.0-0.9 [facility] Comment on above: IG% - Immature Granu locytes (promyelocytes, myelocytes and metamyelocytes) > 1% indicates that a LEFT SHIFT is Present. Laboratory - Chemistry and C hemistry - challengeOrdered By: Rocio Bartlett on 08-29-2023 CO2 [Moles/Vol] 28.0 mmol/L 21.0-32.0 [facility] Urea nitrogen/Creatinine [Mass ratio] 32.0 mg/mg 10-20 [facility] Laboratory - Hematology and Cell countsOrdered By: Rocio Bartlett on 08-29-2023 Anisocytosis Ql (Bld) 1+ [facility] MCH (RBC) [Entitic mass] 21.7 pg 27.0-32.0 [facility] MCHC (RBC) [Mass/Vol] 28.2 g/dL 32-36 [facility] Nucleated RBC/100 WBC (Bld) [Ratio] 0 % 0-5 [facility] Platelet mean volume (Bld) [Entitic vol] 9.7 fL 6.2-12.0 [facility] Platelets (Bld) [#/Vol] 474 10*3/uL 150-450 [facility] No Panel InformationOrdered By: Rocio Bartlett on 08-29-2023 C-Reactive Protein Extended Range 80.80 mg/L 0.0-3.0 [facility] Comment on above: C-Reactive Protein ( CRP) provides useful information for thediagnosis, therapy and monitoring of inflammatory processesand associated diseases. For the evaluation of Relative Riskfor Cardiovascular Disease, a High Sensitivity CRP (HSCRP)should be ordered. Estimated GFR (MDRD) Amer 238 mL/min >60 [facility] Comment on above: GFR Calc Estimated GFR (MDRD) Non-Af Amer 197 mL/min >60 [facility] Comment on above: Non- GFR Calc RBC Auto (Bld) [#/Vol]Ordere d By: Rocio Bartlett on 08-29-2023 RBC (Bld) [#/Vol] 3.64 10*6/uL 4.6-6.2 [facility] Serum or plasma calcium sarah urement (mass/volume)Ordered By: Rocio Bartlett on 08-29-2023 Calcium [Mass/Vol] 9.3 mg/dL 8.5-10.1 [facility] Serum or plasma creatinine m easurement (mass/volume)Ordered By: Rocio Bartlett on 08-29-2023 Creatinine [Mass/Vol] 0.47 mg/dL 0.70-1.30 [facility] Comment on above: The validity of the calculated GFR & GFRAA in patients over 70 years has not been determined. Clinical correlation is essential. Serum or plasma urea nitroge n measurement (mass/volume)Ordered By: Rocio Bartlett on 08-29-2023 Urea nitrogen [Mass/Vol] 15 mg/dL 7-18 [facility] Thin prep Papanicolaou smear with manual screeningOrdered By: sylvie Bartlett on 08-29-2023 Thin prep Papanicolaou smear with manual screening 7 5-15 [facility] Absolute lymphocyte countOrd ered By: sylvie Bartlett on 08-22-2023 Lymphocytes Auto (Unsp spec) [#/Vol] 2.63 10*3/uL 0.83-4.51 [facility] Automated lymphocyte count a s percentage of total leukocytesOrdered By: fannyrobstownfernanda Bartlett on 08-22-2023 Lymphocytes/100 WBC Auto (Unsp spec) 29.8 % 19-41 [facility] Basophil percentageOrdered B y: Rocio Bartlett on 08-22-2023 Basophils/100 WBC (Bld) 1.0 % 0-1 [facility] Chloride [Moles/Vol] 102 mmol/L 98-107 [facility] Eosinophils/100 WBC (Bld) 8.8 % 0-5 [facility] Glucose [Mass/Vol] 131 mg/dL 74-106 [facility] Comment on above: Fasting Glucose resu lt greater than or equal to 126 mg/dL suggests DIABETES MELLITUS per A.D.A. criteria. Hemoglobin (Bld) [Mass/Vol] 7.7 g/dL 13.0-16.5 [facility] Monocytes/100 WBC (Bld) 8.6 % 0-10 [facility] Neutrophils (Bld) [#/Vol] 4.5 10*3/uL 2.0-7.7 [facility] Neutrophils/100 WBC (Bld) 50.3 % 47-70 [facility] Potassium [Moles/Vol] 4.0 mmol/L 3.5-5.1 [facility] Sodium [Moles/Vol] 137 mmol/L 136-145 [facility] WBC (Bld) [#/Vol] 8.8 10*3/uL 4.4-11.0 [facility] Blood manual differential co mment interpretation (narrative result)Ordered By: Corettasylvie Bartlett on 08-22-2023 Manual differential comment Guerrero (Bld) [Interp] SCANNED [facility] Determination of erythrocyte mean corpuscular volume (MCV)Ordered By: Rocio Bartlett on 08-22-2023 MCV (RBC) [Entitic vol] 78.6 fL 80-94 [facility] Erythrocyte distribution wid th ratioOrdered By: [facility] Reardonmyranda on 08-22-2023 Erythrocyte distribution width (RBC) [Ratio] 20.5 % 11.6-14.6 [facility] Erythrocyte distribution wid th standard deviationOrdered By: [facility] Centerfer[facility]anda Bartlett on 08-22-2023 Erythrocyte distribution width (RBC) [Entitic vol] 58.4 fL 35.1-43.9 [facility] Erythrocyte sedimentation ra teOrdered By: fannyrobstownfernanda Bartlett on 08-22-2023 ESR (Bld) [Velocity] 62 mm/h 0-20 [facility] Hematocrit Auto (Bld) [Volum e fraction]Ordered By: [facility] Bartlett on 08-22-2023 Hematocrit (Bld) [Volume fraction] 26.5 % 40-54 [facility] Hypochromatic red blood cell detectionOrdered By: [facility] Center[facility]anda Bartlett on 08-22-2023 Hypochromia Ql (Bld) 1+ [facility] Immature granulocytes/100 WB C Auto (Bld)Ordered By: [facility] Center[facility] Reardonmyranda on 08-22-2023 Immature granulocytes/100 WBC (Bld) 1.500 % 0.0-0.9 [facility] Comment on above: IG% - Immature Granu locytes (promyelocytes, myelocytes and metamyelocytes) > 1% indicates that a LEFT SHIFT is Present. Laboratory - Chemistry and C hemistry - challengeOrdered By: sylvie Bartlett on 08-22-2023 CO2 [Moles/Vol] 29.0 mmol/L 21.0-32.0 [facility] Urea nitrogen/Creatinine [Mass ratio] 27.7 mg/mg 10-20 [facility] Laboratory - Hematology and Cell countsOrdered By: fannyrobstownfernanda Bartlett on 08-22-2023 Anisocytosis Ql (Bld) 2+ [facility] MCH (RBC) [Entitic mass] 22.8 pg 27.0-32.0 [facility] MCHC (RBC) [Mass/Vol] 29.1 g/dL 32-36 [facility] Nucleated RBC/100 WBC (Bld) [Ratio] 0 % 0-5 [facility] Platelet mean volume (Bld) [Entitic vol] 9.2 fL 6.2-12.0 [facility] Platelets (Bld) [#/Vol] 446 10*3/uL 150-450 [facility] Macrocytes detectionOrdered By: Rocio Bartlett on 08-22-2023 Macrocytes Ql (Bld) 1+ [facility] No Panel InformationOrdered By: Rocio Bartlett on 08-22-2023 C-Reactive Protein Extended Range 89.90 mg/L 0.0-3.0 [facility] Comment on above: C-Reactive Protein ( CRP) provides useful information for thediagnosis, therapy and monitoring of inflammatory processesand associated diseases. For the evaluation of Relative Riskfor Cardiovascular Disease, a High Sensitivity CRP (HSCRP)should be ordered. Estimated GFR (MDRD) Amer 237 mL/min >60 [facility] Comment on above: GFR Calc Estimated GFR (MDRD) Non-Af Amer 196 mL/min >60 [facility] Comment on above: Non- GFR Calc RBC Auto (Bld) [#/Vol]Ordere d By: Rocio Bartlett on 08-22-2023 RBC (Bld) [#/Vol] 3.37 10*6/uL 4.6-6.2 [facility] Serum or plasma calcium sarah urement (mass/volume)Ordered By: Rocio Bartlett on 08-22-2023 Calcium [Mass/Vol] 8.6 mg/dL 8.5-10.1 [facility] Serum or plasma creatinine m easurement (mass/volume)Ordered By: Rocio Bartlett on 08-22-2023 Creatinine [Mass/Vol] 0.47 mg/dL 0.70-1.30 [facility] Comment on above: The validity of the calculated GFR & GFRAA in patients over 70 years has not been determined. Clinical correlation is essential. Serum or plasma urea nitroge n measurement (mass/volume)Ordered By: Rocio Bartlett on 08-22-2023 Urea nitrogen [Mass/Vol] 13 mg/dL 7-18 [facility] Thin prep Papanicolaou smear with manual screeningOrdered By: Rocio Bartlett on 08-22-2023 Thin prep Papanicolaou smear with manual screening 1+ [facility] Thin prep Papanicolaou smear with manual screening 6 5-15 [facility] Whole blood hemoglobin A1c/t otal hemoglobin ratio (mass fraction)Ordered By: Rocio Bartlett on 08-22-2023 HbA1c (Bld) [Mass fraction] 6.1 % 3.8-5.6 [facility] Comment on above: Normal < 5.7 % Predi abetic 5.7 - 6.4 % Diabetic >or= 6.5 % Please note range changes. Bilirubin Test strip Ql (U)O rdered By: Rocio Bartlett on 08-21-2023 Bilirubin Ql (U) Negative Negative [facility] Culture, urineOrdered By: Coretta Bartlett on 08-21-2023 Bacteria identified Cx Nom (U) Culture exhibits no growth. [facility] Ketones Test strip Ql (U)Ord ered By: Rocio Bartlett on 08-21-2023 Ketones Ql (U) Negative Negative [facility] Nitrite Test strip Ql (U)Ord ered By: Rocio Bartlett on 08-21-2023 Nitrite Ql (U) Negative Negative [facility] Protein Test strip Ql (U)Ord ered By: Rocio Bartlett on 08-21-2023 Protein Ql (U) 100 mg/dl Negative [facility] Urine blood detectionOrdered By: Rocio Bartlett on 08-21-2023 RBC Ql (U) 250 /ul Negative [facility] Urine clarityOrdered By: Williams Bartlett on 08-21-2023 Clarity (U) Sl. Cloudy Clear [facility] Urine color determinationOrd ered By: Rocio Bartlett on 08-21-2023 Color (U) Red Yellow [facility] Urine glucose detectionOrder ed By: Rocio Bartlett on 08-21-2023 Glucose Ql (U) Normal mg/dl Normal [facility] Urine leukocyte esterase det ection by dipstickOrdered By: Rocio Bartlett on 08-21-2023 Leukocyte esterase Test strip Ql (U) 25 /ul Negative [facility] Urine pHOrdered By: Dewey Bartlett on 08-21-2023 pH (U) 7.0 [pH] 5.0 - 8.0 [facility] Urine specific gravity measu rementOrdered By: Rocio Bartlett on 08-21-2023 Specific gravity (U) [Rel density] 1.005 1.002-1.030 [facility] Urine urobilinogen measureme ntOrdered By: Rocio Bartlett on 08-21-2023 Urobilinogen Ql (U) Normal mg/dl Normal [facility] Absolute lymphocyte countOrd ered By: Rocio Bartlett on 08-16-2023 Lymphocytes Auto (Unsp spec) [#/Vol] 1.96 10*3/uL 0.83-4.51 [facility] Automated lymphocyte count a s percentage of total leukocytesOrdered By: Rocio Bartlett on 08-16-2023 Lymphocytes/100 WBC Auto (Unsp spec) 28.2 % 19-41 [facility] Basophil percentageOrdered B y: Rocio Bartlett on 08-16-2023 Basophils/100 WBC (Bld) 1.2 % 0-1 [facility] Bilirubin [Mass/Vol] 0.40 mg/dL 0.20-1.00 [facility] Comment on above: For patients on eltr ombopag therapy, use of [employer]ension [place] TBIL is not recommended. Chloride [Moles/Vol] 105 mmol/L 98-107 [facility] Eosinophils/100 WBC (Bld) 11.4 % 0-5 [facility] Glucose [Mass/Vol] 159 mg/dL 74-106 [facility] Comment on above: Fasting Glucose resu lt greater than or equal to 126 mg/dL suggests DIABETES MELLITUS per A.D.A. criteria. Hemoglobin (Bld) [Mass/Vol] 8.3 g/dL 13.0-16.5 [facility] Monocytes/100 WBC (Bld) 11.4 % 0-10 [facility] Neutrophils (Bld) [#/Vol] 3.3 10*3/uL 2.0-7.7 [facility] Neutrophils/100 WBC (Bld) 47.4 % 47-70 [facility] Potassium [Moles/Vol] 4.1 mmol/L 3.5-5.1 [facility] Protein [Mass/Vol] 7.0 g/dL 6.4-8.2 [facility] Sodium [Moles/Vol] 138 mmol/L 136-145 [facility] WBC (Bld) [#/Vol] 7.0 10*3/uL 4.4-11.0 [facility] Blood manual differential co mment interpretation (narrative result)Ordered By: Rocio Bartlett on 08-16-2023 Manual differential comment Guerrero (Bld) [Interp] SCANNED [facility] Determination of erythrocyte mean corpuscular volume (MCV)Ordered By: Rocio Bartlett on 08-16-2023 MCV (RBC) [Entitic vol] 80.9 fL 80-94 [facility] ESRon 08-16-2023 Erythrocyte Sed Rate 101 mm/hr High 0-20 [facility] Comment on above: Performed By: #### E SR #### [address] [address] Erythrocyte distribution wid th ratioOrdered By: Rocio Bartlett on 08-16-2023 Erythrocyte distribution width (RBC) [Ratio] 20.2 % 11.6-14.6 [facility] Erythrocyte distribution wid th standard deviationOrdered By: Rocio Bartlett on 08-16-2023 Erythrocyte distribution width (RBC) [Entitic vol] 59.3 fL 35.1-43.9 [facility] Erythrocyte sedimentation ra teOrdered By: Rocio Bartlett on 08-16-2023 ESR (Bld) [Velocity] 101 mm/h 0-20 [facility] Comment on above: TESTING PERFORMED AT [facility]. ORIGINAL REPORT ON FILE IN LAB CONTAINS ADDITIONAL TEST SITE INFORMATION. Hematocrit Auto (Bld) [Volum e fraction]Ordered By: Rocio Bartlett on 08-16-2023 Hematocrit (Bld) [Volume fraction] 28.3 % 40-54 [facility] Immature granulocytes/100 WB C Auto (Bld)Ordered By: Rocio Bartlett on 08-16-2023 Immature granulocytes/100 WBC (Bld) 0.400 % 0.0-0.9 [facility] Comment on above: IG% - Immature Granu locytes (promyelocytes, myelocytes and metamyelocytes) > 1% indicates that a LEFT SHIFT is Present. LABORATORYOrdered By: David Rios on 08-16-2023 ESR Photometric method (Bld) [Velocity] 101 mm/hr High 0 - 20 mm/hr AO Man Heme SS Laboratory - Chemistry and C hemistry - challengeOrdered By: Rocio Bartlett on 08-16-2023 Albumin/Globulin [Mass ratio] 0.5 {ratio} 0.9-2.4 [facility] ALP [Catalytic activity/Vol] 111 U/L 45-117 [facility] ALT [Catalytic activity/Vol] 18 U/L 16-61 [facility] CO2 [Moles/Vol] 28.0 mmol/L 21.0-32.0 [facility] Globulin (S) [Mass/Vol] 4.7 g/dL 2.2-4.2 [facility] Urea nitrogen/Creatinine [Mass ratio] 16.2 mg/mg 10-20 [facility] Laboratory - Hematology and Cell countsOrdered By: Rocio Bartlett on 08-16-2023 Anisocytosis Ql (Bld) 2+ [facility] MCH (RBC) [Entitic mass] 23.7 pg 27.0-32.0 [facility] MCHC (RBC) [Mass/Vol] 29.3 g/dL 32-36 [facility] Nucleated RBC/100 WBC (Bld) [Ratio] 0 % 0-5 [facility] Platelet mean volume (Bld) [Entitic vol] 8.8 fL 6.2-12.0 [facility] Platelets (Bld) [#/Vol] 450 10*3/uL 150-450 [facility] Macrocytes detectionOrdered By: Rocio Bartlett on 08-16-2023 Macrocytes Ql (Bld) 1+ [facility] No Panel InformationOrdered By: Rocio Bartlett on 08-16-2023 C-Reactive Protein Extended Range 93.50 mg/L 0.0-3.0 [facility] Comment on above: C-Reactive Protein ( CRP) provides useful information for thediagnosis, therapy and monitoring of inflammatory processesand associated diseases. For the evaluation of Relative Riskfor Cardiovascular Disease, a High Sensitivity CRP (HSCRP)should be ordered. Estimated GFR (MDRD) Amer 261 mL/min >60 [facility] Comment on above: GFR Calc Estimated GFR (MDRD) Non-Af Amer 216 mL/min >60 [facility] Comment on above: Non- GFR Calc RBC Auto (Bld) [#/Vol]Ordere d By: Rocio Bartlett on 08-16-2023 RBC (Bld) [#/Vol] 3.50 10*6/uL 4.6-6.2 [facility] Serum or plasma calcium sarah urement (mass/volume)Ordered By: Rocio Bartlett on 08-16-2023 Calcium [Mass/Vol] 8.9 mg/dL 8.5-10.1 [facility] Serum or plasma creatinine m easurement (mass/volume)Ordered By: Rocio Bartlett on 08-16-2023 Creatinine [Mass/Vol] 0.43 mg/dL 0.70-1.30 [facility] Comment on above: The validity of the calculated GFR & GFRAA in patients over 70 years has not been determined. Clinical correlation is essential. Serum or plasma urea nitroge n measurement (mass/volume)Ordered By: Rocio Bartlett on 08-16-2023 Urea nitrogen [Mass/Vol] 7 mg/dL 7-18 [facility] Thin prep Papanicolaou smear with manual screeningOrdered By: Rocio Bartlett on 08-16-2023 Thin prep Papanicolaou smear with manual screening 1+ [facility] Thin prep Papanicolaou smear with manual screening 2.3 g/dL 3.2-5.0 [facility] Thin prep Papanicolaou smear with manual screening 13 U/L 15-37 [facility] Thin prep Papanicolaou smear with manual screening 5 5-15 [facility] Whole blood hemoglobin A1c/t otal hemoglobin ratio (mass fraction)Ordered By: Rocio Bartlett on 08-16-2023 HbA1c (Bld) [Mass fraction] 5.9 % 3.8-5.6 [facility] Comment on above: Normal < 5.7 % Predi abetic 5.7 - 6.4 % Diabetic >or= 6.5 % Please note range changes. Basic metabolic 2000 panelon 08-12-2023 Anion gap [Moles/Vol] 11 mmol/L Normal 9-18 [facility] Comment on above: Order Comment: Speci men Type: BLOOD SPECIMENOrdering Facility: [facility] Address: [address] [place] [address] Performed By: #### 2 4321-2 ####[place] [facility] LABORATORYCLIA [id number] [place] [address] [place] Calcium [Mass/Vol] 8.6 mg/dL Normal 8.5-10.2 [facility] Comment on above: Order Comment: Speci men Type: BLOOD SPECIMENOrdering Facility: [facility] Address: [address] [place] [address] Performed By: #### 2 4321-2 ####[facility] LABORATORYCLIA [id number] [place] [id number] [place] Chloride [Moles/Vol] 100 mmol/L Normal 97-105 [facility] Comment on above: Order Comment: Speci men Type: BLOOD SPECIMENOrdering Facility: [facility] Address: [address] [place] [address] Performed By: #### 2 4321-2 ####[place] [facility] LABORATORYCLIA [id number] [place] [address] [place] CO2 [Moles/Vol] 27 mmol/L Normal 22-30 [facility] Comment on above: Order Comment: Speci men Type: BLOOD SPECIMENOrdering Facility: [facility] Address: [address] [place] [address] Performed By: #### 2 4321-2 ####[place] [facility] LABORATORYCLIA [id number] [place] [address] [place] Creatinine [Mass/Vol] 0.52 mg/dL Low 0.73-1.22 [facility] Comment on above: Order Comment: Speci men Type: BLOOD SPECIMENOrdering Facility: [facility] Address: [address] [place] [address] Performed By: #### 2 4321-2 ####[facility] LABORATORYCLIA [id number] [place] [address] [place] Creatinine and Glomerular filtration rate.predicted panel (S/P/Bld) 118 mL/min/1.73m??? Normal >=60 [facility] Comment on above: Order Comment: Speci men Type: BLOOD SPECIMENOrdering Facility: [facility] Address: [address] [place] [address] Result Comment: Lola mated Glomerular Filtration Rate (eGFR) is calculated using the 2020 CKD-EPI creatinine equation. This equation utilizes serum creatinine, sex, and age as parameters. The creatinine assay has traceable calibration to isotope dilution-mass spectrometry. Refer to KDIGO guidelines for clinical interpretation. In patients with unstable renal function, e.g. those with acute kidney injury, the eGFR may not accurately reflect actual GFR. Performed By: #### 2 4321-2 ####[facility] LABORATORYCLIA [id number] [place] [address] [place] Glucose [Mass/Vol] 165 mg/dL High 74-99 [facility] Comment on above: Order Comment: Speci men Type: BLOOD SPECIMENOrdering Facility: [facility] Address: [address] [place] [address] Result Comment: The [place] Diabetes Association (ADA) provides guidance for cutoff values for fasting glucose and random glucose. The ADA defines fasting as no caloric intake for at least 8 hours. Fasting plasma glucose results between 100 to 125 mg/dL indicate increased risk for diabetes (prediabetes).Fasting plasma glucose results greater than or equal to 126 mg/dL meet the criteria for diagnosis of diabetes. In the absence of unequivocal hyperglycemia, results should be confirmed by repeat testing. In a patient with classic symptoms of hyperglycemia or hyperglycemic crisis, random plasma glucose results greater than or equal to 200 mg/dL meet the criteria for diagnosis of diabetes.Reference: Standards of Medical Care in Diabetes 2016, [place] [employer]. Diabetes Care. 2016.39(Suppl 1). Performed By: #### 2 4321-2 ####[facility]ORATORYCLIA [id number] [place] [address] [place] Potassium [Moles/Vol] 4.2 mmol/L Normal 3.7-5.1 [facility] Comment on above: Order Comment: Speci men Type: BLOOD SPECIMENOrdering Facility: [facility] Address: [address] [place] [address] Performed By: #### 2 4321-2 ####[facility] LABORATORYCLIA [id number] [place] [address] [place] Sodium [Moles/Vol] 138 mmol/L Normal 136-144 [facility] Comment on above: Order Comment: Speci men Type: BLOOD SPECIMENOrdering Facility: [facility] Address: [address] [place] [address] Performed By: #### 2 4321-2 ####[facility]ORATORYCLIA [id number] [place] [address] [place] Urea nitrogen [Mass/Vol] 10 mg/dL Normal 9-24 [facility] Comment on above: Order Comment: Speci men Type: BLOOD SPECIMENOrdering Facility: [facility] Address: [address] [place] [address] Performed By: #### 2 4321-2 ####[facility] LABORATORYCLIA [id number] [place] [address] [place] CASE MANAGEMon 08-12-2023 CASE MANAGEM Normal [facility] CBC panel Auto (Bld)on 08-11 Erythrocyte distribution width (RBC) [Ratio] 21.2 % High 11.5-15.0 [facility] Comment on above: Order Comment: Speci men Type: BLOOD SPECIMENOrdering Facility: [facility] Address: [address] [place] [address] Performed By: #### 5 8410-2 ####[facility] LABORATORYCLIA [id number] [address] [place] Hematocrit (Bld) [Volume fraction] 27.2 % Low 39.0-51.0 [facility] Comment on above: Order Comment: Speci men Type: BLOOD SPECIMENOrdering Facility: [facility] Address: [address] [place] [address] Performed By: #### 5 8410-2 ####[facility] LABORATORYCLIA [id number] [address] [place] Hemoglobin (Bld) [Mass/Vol] 7.8 g/dL Low 13.0-17.0 [facility] Comment on above: Order Comment: Speci men Type: BLOOD SPECIMENOrdering Facility: [facility] Address: [address] [place] [address] Performed By: #### 5 8410-2 ####[facility] LABORATORYCLIA [id number] [place] [address] [place] MCH (RBC) [Entitic mass] 24.0 pg Low 26.0-34.0 [facility] Comment on above: Order Comment: Speci men Type: BLOOD SPECIMENOrdering Facility: [facility] Address: [address] [place] [address] Performed By: #### 5 8410-2 ####[facility] LABORATORYCLIA [id number] [place] [address] [place] MCHC (RBC) [Mass/Vol] 28.7 g/dL Low 30.5-36.0 [facility] Comment on above: Order Comment: Speci men Type: BLOOD SPECIMENOrdering Facility: [facility] Address: [address] [place] [address] Performed By: #### 5 8410-2 ####[facility]ORATORYCLIA [id number] [place] [address] [place] MCV (RBC) [Entitic vol] 83.7 fL Normal 80.0-100.0 [facility] Comment on above: Order Comment: Speci men Type: BLOOD SPECIMENOrdering Facility: [facility] Address: [address] [place] [address] Performed By: #### 5 8410-2 ####[facility] LABORATORYCLIA [id number] [place] [address] [place] Nucleated RBC (Bld) [#/Vol] 10*3/uL Normal <0.01 [facility] Comment on above: Order Comment: Speci men Type: BLOOD SPECIMENOrdering Facility: [facility] Address: [address] [place] [address] Performed By: #### 5 8410-2 ####[facility] LABORATORYCLIA [id number] [place] [address] [place] Platelet mean volume (Bld) [Entitic vol] 8.7 fL Low 9.0-12.7 [facility] Comment on above: Order Comment: Speci men Type: BLOOD SPECIMENOrdering Facility: [facility] Address: [address] [place] [address] Performed By: #### 5 8410-2 ####[facility] LABORATORYCLIA [id number] [place] [address] [place] Platelets (Bld) [#/Vol] 467 10*3/uL High 150-400 [facility] Comment on above: Order Comment: Speci men Type: BLOOD SPECIMENOrdering Facility: [facility] Address: [address] [place] [address] Performed By: #### 5 8410-2 ####[facility] LABORATORYCLIA [id number] [place] [address] [place] RBC (Bld) [#/Vol] 3.25 10*6/uL Low 4.20-6.00 [facility] Comment on above: Order Comment: Speci men Type: BLOOD SPECIMENOrdering Facility: [facility] Address: [address] [place] [address] Performed By: #### 5 8410-2 ####[facility]ORATORYCLIA [id number] [place] [address] [place] WBC (Bld) [#/Vol] 9.64 10*3/uL Normal 3.70-11.00 [facility] Comment on above: Order Comment: Speci men Type: BLOOD SPECIMENOrdering Facility: [facility] Address: [address] [place] [address] Performed By: #### 5 8410-2 ####[facility] LABORATORYCLIA [id number] [address] [place] CNDSon 08-12-2023 CNDS [facility] CONSULT PROGon 08-12-2023 CONSULT PROG [facility] SARS-CoV-2 RNA Resp Ql ABIGAIL+p robeon 08-12-2023 SARS-CoV-2 (COVID-19) RNA ABIGAIL+probe Ql (Resp) COVID 19 RESULT: Not detected The method used is RT-PCR or an equivalent NAAT method. Reference Range(the expected result in uninfected individuals): Not detected [facility] Comment on above: Performed By: #### 9 4500-6 ####[facility] LABORATORYCLIA [id number] [place] [address] [place] Basic metabolic 2000 panelon 08-11-2023 Anion gap [Moles/Vol] 13 mmol/L Normal 9-18 [facility] Comment on above: Order Comment: Speci men Type: BLOOD SPECIMENOrdering Facility: [facility] Address: [address] [place] [address] Performed By: #### 2 4321-2 ####[facility] LABORATORYCLIA [id number] [place] [address] [place] Calcium [Mass/Vol] 8.5 mg/dL Normal 8.5-10.2 [facility] Comment on above: Order Comment: Speci men Type: BLOOD SPECIMENOrdering Facility: [facility] Address: [address] [place] [address] Performed By: #### 2 4321-2 ####[facility]ORATORYCLIA [id number] [place] [address] [place] Chloride [Moles/Vol] 100 mmol/L Normal 97-105 [facility] Comment on above: Order Comment: Speci men Type: BLOOD SPECIMENOrdering Facility: [facility] Address: [address] [place] [address] Performed By: #### 2 4321-2 ####[facility] LABORATORYCLIA [id number] [place] [address] [place] CO2 [Moles/Vol] 26 mmol/L Normal 22-30 [facility] Comment on above: Order Comment: Speci men Type: BLOOD SPECIMENOrdering Facility: [facility] Address: [address] [place] [address] Performed By: #### 2 4321-2 ####[facility] LABORATORYCLIA [id number] [place] [address] [place] Creatinine [Mass/Vol] 0.54 mg/dL Low 0.73-1.22 [facility] Comment on above: Order Comment: Speci men Type: BLOOD SPECIMENOrdering Facility: [facility] Address: [address] [place] [address] Performed By: #### 2 4321-2 ####[facility] LABORATORYCLIA [id number] [place] [address] [place] Creatinine and Glomerular filtration rate.predicted panel (S/P/Bld) 117 mL/min/1.73m??? Normal >=60 [facility] Comment on above: Order Comment: Speci men Type: BLOOD SPECIMENOrdering Facility: [facility] Address: [address] [place] [address] Result Comment: Lola mated Glomerular Filtration Rate (eGFR) is calculated using the 2020 CKD-EPI creatinine equation. This equation utilizes serum creatinine, sex, and age as parameters. The creatinine assay has traceable calibration to isotope dilution-mass spectrometry. Refer to KDIGO guidelines for clinical interpretation. In patients with unstable renal function, e.g. those with acute kidney injury, the eGFR may not accurately reflect actual GFR. Performed By: #### 2 4321-2 ####[facility] LABORATORYCLIA [id number] [place] [id number] [place] Glucose [Mass/Vol] 146 mg/dL High 74-99 [facility] Comment on above: Order Comment: Doroteo zavala Type: BLOOD SPECIMENOrdering Facility: [facility] Address: [address] [place] [address] Result Comment: The [place] Diabetes Association (ADA) provides guidance for cutoff values for fasting glucose and random glucose. The ADA defines fasting as no caloric intake for at least 8 hours. Fasting plasma glucose results between 100 to 125 mg/dL indicate increased risk for diabetes (prediabetes).Fasting plasma glucose results greater than or equal to 126 mg/dL meet the criteria for diagnosis of diabetes. In the absence of unequivocal hyperglycemia, results should be confirmed by repeat testing. In a patient with classic symptoms of hyperglycemia or hyperglycemic crisis, random plasma glucose results greater than or equal to 200 mg/dL meet the criteria for diagnosis of diabetes.Reference: Standards of Medical Care in Diabetes 2016, [place] [employer]. Diabetes Care. 2016.39(Suppl 1). Performed By: #### 2 4321-2 ####[facility] LABORATORYCLIA [id number] [place] [id number] [place] Potassium [Moles/Vol] 4.2 mmol/L Normal 3.7-5.1 [facility] Comment on above: Order Comment: Doroteo zavala Type: BLOOD SPECIMENOrdering Facility: [facility] Address: [address] [place] [id number] Performed By: #### 2 4321-2 ####[facility] LABORATORYCLIA [id number] [place] [id number] [place] Sodium [Moles/Vol] 139 mmol/L Normal 136-144 [facility] Comment on above: Order Comment: Speci men Type: BLOOD SPECIMENOrdering Facility: [facility] Address: [address] [place] [address] Performed By: #### 2 4321-2 ####[facility] LABORATORYCLIA [id number] [place] [address] [place] Urea nitrogen [Mass/Vol] 10 mg/dL Normal 9-24 [facility] Comment on above: Order Comment: Speci men Type: BLOOD SPECIMENOrdering Facility: [facility] Address: [address] [place] [address] Performed By: #### 2 4321-2 ####[facility] LABORATORYCLIA [id number] [place] [address] [place] CBC panel Auto (Bld)on 08-10 Erythrocyte distribution width (RBC) [Ratio] 21.3 % High 11.5-15.0 [facility] Comment on above: Order Comment: Speci men Type: BLOOD SPECIMENOrdering Facility: [facility] Address: [address] [place] [address] Performed By: #### 5 8410-2 ####[facility] LABORATORYCLIA [id number] [place] [address] [place] Hematocrit (Bld) [Volume fraction] 27.2 % Low 39.0-51.0 [facility] Comment on above: Order Comment: Speci men Type: BLOOD SPECIMENOrdering Facility: [facility] Address: [address] [place] [address] Performed By: #### 5 8410-2 ####[facility]ORATORYCLIA [id number] [place] [id number] [place] Hemoglobin (Bld) [Mass/Vol] 8.0 g/dL Low 13.0-17.0 [facility] Comment on above: Order Comment: Speci men Type: BLOOD SPECIMENOrdering Facility: [facility] Address: [address] [place] [address] Performed By: #### 5 8410-2 ####[facility] LABORATORYCLIA [id number] [place] [address] [place] MCH (RBC) [Entitic mass] 24.2 pg Low 26.0-34.0 [facility] Comment on above: Order Comment: Speci men Type: BLOOD SPECIMENOrdering Facility: [facility] Address: [address] [place] [address] Performed By: #### 5 8410-2 ####[facility]ORATORYCLIA [id number] [place] [address] [place] MCHC (RBC) [Mass/Vol] 29.4 g/dL Low 30.5-36.0 [facility] Comment on above: Order Comment: Speci men Type: BLOOD SPECIMENOrdering Facility: [facility] Address: [address] [place] [address] Performed By: #### 5 8410-2 ####[facility]ORATORYCLIA [id number] [place] [address] [place] MCV (RBC) [Entitic vol] 82.2 fL Normal 80.0-100.0 [facility] Comment on above: Order Comment: Speci men Type: BLOOD SPECIMENOrdering Facility: [facility] Address: [address] [place] [address] Performed By: #### 5 8410-2 ####[facility] LABORATORYCLIA [id number] [place] [address] [place] Nucleated RBC (Bld) [#/Vol] 10*3/uL Normal <0.01 [facility] Comment on above: Order Comment: Speci men Type: BLOOD SPECIMENOrdering Facility: [facility] Address: [address] [place] [address] Performed By: #### 5 8410-2 ####[facility]ORATORYCLIA [id number] [address] [place] Platelet mean volume (Bld) [Entitic vol] 8.4 fL Low 9.0-12.7 [facility] Comment on above: Order Comment: Speci men Type: BLOOD SPECIMENOrdering Facility: [facility] Address: [address] [place] [address] Performed By: #### 5 8410-2 ####[facility]ORATORYCLIA [id number] [place] [id number] [place] Platelets (Bld) [#/Vol] 436 10*3/uL High 150-400 [facility] Comment on above: Order Comment: Speci men Type: BLOOD SPECIMENOrdering Facility: [facility] Address: [address] [place] [address] Performed By: #### 5 8410-2 ####[facility] LABORATORYCLIA [id number] [address] [place] RBC (Bld) [#/Vol] 3.31 10*6/uL Low 4.20-6.00 [facility] Comment on above: Order Comment: Speci men Type: BLOOD SPECIMENOrdering Facility: [facility] Address: [address] [place] [address] Performed By: #### 5 8410-2 ####[facility] LABORATORYCLIA [id number] [place] [id number] [place] WBC (Bld) [#/Vol] 8.98 10*3/uL Normal 3.70-11.00 [facility] Comment on above: Order Comment: Speci men Type: BLOOD SPECIMENOrdering Facility: [facility] Address: [address] [place] [address] Performed By: #### 5 8410-2 ####[facility] LABORATORYCLIA [id number] [place] [id number] [facility] [place] ALLIED HEALTHon 08-10-2023 ALLIED HEALTH Normal [facility] CBC panel Auto (Bld)on 08-09 Erythrocyte distribution width (RBC) [Ratio] 21.9 % High 11.5-15.0 [facility] Comment on above: Order Comment: Speci men Type: BLOOD SPECIMENOrdering Facility: [facility] Address: [address] [place] [address] Performed By: #### 5 8410-2 ####[facility]ORATORYCLIA [id number] [place] [address] [place] Hematocrit (Bld) [Volume fraction] 27.5 % Low 39.0-51.0 [facility] Comment on above: Order Comment: Speci men Type: BLOOD SPECIMENOrdering Facility: [facility] Address: [address] [place] [address] Performed By: #### 5 8410-2 ####[facility]ORATORYCLIA [id number] [place] [address] [place] Hemoglobin (Bld) [Mass/Vol] 8.1 g/dL Low 13.0-17.0 [facility] Comment on above: Order Comment: Speci men Type: BLOOD SPECIMENOrdering Facility: [facility] Address: [address] [place] [address] Performed By: #### 5 8410-2 ####[facility]ORATORYCLIA [id number] [address] [place] MCH (RBC) [Entitic mass] 24.5 pg Low 26.0-34.0 [facility] Comment on above: Order Comment: Speci men Type: BLOOD SPECIMENOrdering Facility: [facility] Address: [address] [place] [address] Performed By: #### 5 8410-2 ####[facility]ORATORYCLIA [id number] [place] [address] [place] MCHC (RBC) [Mass/Vol] 29.5 g/dL Low 30.5-36.0 [facility] Comment on above: Order Comment: Speci men Type: BLOOD SPECIMENOrdering Facility: [facility] Address: [address] [place] [address] Performed By: #### 5 8410-2 ####[facility]ORATORYCLIA [id number] [address] [place] MCV (RBC) [Entitic vol] 83.1 fL Normal 80.0-100.0 [facility] Comment on above: Order Comment: Speci men Type: BLOOD SPECIMENOrdering Facility: [facility] Address: [address] [place] [address] Performed By: #### 5 8410-2 ####[facility] LABORATORYCLIA [id number] [place] [address] [place] Nucleated RBC (Bld) [#/Vol] 10*3/uL Normal <0.01 [facility] Comment on above: Order Comment: Speci men Type: BLOOD SPECIMENOrdering Facility: [facility] Address: [address] [place] [address] Performed By: #### 5 8410-2 ####[facility] LABORATORYCLIA [id number] [place] [address] [place] Platelet mean volume (Bld) [Entitic vol] 8.4 fL Low 9.0-12.7 [facility] Comment on above: Order Comment: Speci men Type: BLOOD SPECIMENOrdering Facility: [facility] Address: [address] [place] [address] Performed By: #### 5 8410-2 ####[facility]ORATORYCLIA [id number] [place] [address] [place] Platelets (Bld) [#/Vol] 451 10*3/uL High 150-400 [facility] Comment on above: Order Comment: Speci men Type: BLOOD SPECIMENOrdering Facility: [facility] Address: [address] [place] [address] Performed By: #### 5 8410-2 ####[facility] LABORATORYCLIA [id number] [place] [address] [place] RBC (Bld) [#/Vol] 3.31 10*6/uL Low 4.20-6.00 [facility] Comment on above: Order Comment: Speci men Type: BLOOD SPECIMENOrdering Facility: [facility] Address: [address] [place] [address] Performed By: #### 5 8410-2 ####[facility] LABORATORYCLIA [id number] [place] [address] [place] WBC (Bld) [#/Vol] 8.61 10*3/uL Normal 3.70-11.00 [facility] Comment on above: Order Comment: Speci men Type: BLOOD SPECIMENOrdering Facility: [facility] Address: [address] [place] [address] Performed By: #### 5 8410-2 ####[facility] LABORATORYCLIA [id number] [place] [address] [place] THERAPY NTon 08-10-2023 THERAPY NT Normal [facility] Basic metabolic 2000 panelon 08-09-2023 Anion gap [Moles/Vol] 12 mmol/L Normal 9-18 [facility] Comment on above: Order Comment: Speci men Type: BLOOD SPECIMENOrdering Facility: [facility] Address: [address] [place] [address] Performed By: #### 2 4321-2 ####[facility] LABORATORYCLIA [id number] [place] [address] [place] Calcium [Mass/Vol] 8.6 mg/dL Normal 8.5-10.2 [facility] Comment on above: Order Comment: Speci men Type: BLOOD SPECIMENOrdering Facility: [facility] Address: [address] [place] [address] Performed By: #### 2 4321-2 ####[facility]ORATORYCLIA [id number] [place] [address] [place] Chloride [Moles/Vol] 101 mmol/L Normal 97-105 [facility] Comment on above: Order Comment: Speci men Type: BLOOD SPECIMENOrdering Facility: [facility] Address: [address] [place] [address] Performed By: #### 2 4321-2 ####[facility] LABORATORYCLIA [id number] [place] [address] [place] CO2 [Moles/Vol] 25 mmol/L Normal 22-30 [facility] Comment on above: Order Comment: Speci men Type: BLOOD SPECIMENOrdering Facility: [facility] Address: [address] [place], [place] [address] [place] [id number] Performed By: #### 2 4321-2 ####[facility] LABORATORYCLIA [id number] [place] [id number] [place] Creatinine [Mass/Vol] 0.46 mg/dL Low 0.73-1.22 [facility] Comment on above: Order Comment: Speccaryn zavala Type: BLOOD SPECIMENOrdering Facility: [facility] Address: [address] [place] [address] Performed By: #### 2 4321-2 ####[facility] LABORATORYCLIA [id number] [place] [address] [place] Creatinine and Glomerular filtration rate.predicted panel (S/P/Bld) 123 mL/min/1.73m??? Normal >=60 [facility] Comment on above: Order Comment: Doroteo zavala Type: BLOOD SPECIMENOrdering Facility: [facility] Address: [address] [place] [address] Result Comment: Lola mated Glomerular Filtration Rate (eGFR) is calculated using the 2020 CKD-EPI creatinine equation. This equation utilizes serum creatinine, sex, and age as parameters. The creatinine assay has traceable calibration to isotope dilution-mass spectrometry. Refer to KDIGO guidelines for clinical interpretation. In patients with unstable renal function, e.g. those with acute kidney injury, the eGFR may not accurately reflect actual GFR. Performed By: #### 2 4321-2 ####[facility] LABORATORYCLIA [id number] [place] [id number] [place] Glucose [Mass/Vol] 118 mg/dL High 74-99 [facility] Comment on above: Order Comment: Doroteo zavala Type: BLOOD SPECIMENOrdering Facility: [facility] Address: [address] [place] [address] Result Comment: The [place] Diabetes [employer] (ADA) provides guidance for cutoff values for fasting glucose and random glucose. The ADA defines fasting as no caloric intake for at least 8 hours. Fasting plasma glucose results between 100 to 125 mg/dL indicate increased risk for diabetes (prediabetes).Fasting plasma glucose results greater than or equal to 126 mg/dL meet the criteria for diagnosis of diabetes. In the absence of unequivocal hyperglycemia, results should be confirmed by repeat testing. In a patient with classic symptoms of hyperglycemia or hyperglycemic crisis, random plasma glucose results greater than or equal to 200 mg/dL meet the criteria for diagnosis of diabetes.Reference: Standards of Medical Care in Diabetes 2016, [place] [employer]. Diabetes Care. 2016.39(Suppl 1). Performed By: #### 2 4321-2 ####[facility] LABORATORYCLIA [id number] [place] [address] [place] Potassium [Moles/Vol] 4.6 mmol/L Normal 3.7-5.1 [facility] Comment on above: Order Comment: Doroteo zavala Type: BLOOD SPECIMENOrdering Facility: [facility] Address: [address] [place] [address] Performed By: #### 2 4321-2 ####[facility]ORATORYCLIA [id number] [place] [address] [place] Sodium [Moles/Vol] 138 mmol/L Normal 136-144 [facility] Comment on above: Order Comment: Doroteo zavala Type: BLOOD SPECIMENOrdering Facility: [facility] Address: [address] [place] [address] Performed By: #### 2 4321-2 ####[facility] LABORATORYCLIA [id number] [place] [address] [place] Urea nitrogen [Mass/Vol] 7 mg/dL Low 9-24 [facility] Comment on above: Order Comment: Doroteo zavala Type: BLOOD SPECIMENOrdering Facility: [facility] Address: [address] [place] [address] Performed By: #### 2 4321-2 ####[facility] LABORATORYCLIA [id number] [place] [address] [place] CASE MANAGEMon 08-09-2023 CASE MANAGEM Normal [facility] CASE MANAGEM Normal [facility] CBC panel Auto (Bld)on 08-08 Erythrocyte distribution width (RBC) [Ratio] 22.4 % High 11.5-15.0 [facility] Comment on above: Order Comment: Speci men Type: BLOOD SPECIMENOrdering Facility: [facility] Address: [address] [place] [address] Performed By: #### 5 8410-2 ####[facility] LABORATORYCLIA [id number] [place] [address] [place] Hematocrit (Bld) [Volume fraction] 28.5 % Low 39.0-51.0 [facility] Comment on above: Order Comment: Speci men Type: BLOOD SPECIMENOrdering Facility: [facility] Address: [address] [place] [address] Performed By: #### 5 8410-2 ####[facility] LABORATORYCLIA [id number] [place] [address] [place] Hemoglobin (Bld) [Mass/Vol] 8.3 g/dL Low 13.0-17.0 [facility] Comment on above: Order Comment: Speci men Type: BLOOD SPECIMENOrdering Facility: [facility] Address: [address] [place] [address] Performed By: #### 5 8410-2 ####[facility] LABORATORYCLIA [id number] [place] [address] [place] MCH (RBC) [Entitic mass] 24.1 pg Low 26.0-34.0 [facility] Comment on above: Order Comment: Speci men Type: BLOOD SPECIMENOrdering Facility: [facility] Address: [address] [place] [address] Performed By: #### 5 8410-2 ####[facility] LABORATORYCLIA [id number] [address] [place] MCHC (RBC) [Mass/Vol] 29.1 g/dL Low 30.5-36.0 [facility] Comment on above: Order Comment: Speci men Type: BLOOD SPECIMENOrdering Facility: [facility] Address: [address] [place] [address] Performed By: #### 5 8410-2 ####[facility] LABORATORYCLIA [id number] [place] [address] [place] MCV (RBC) [Entitic vol] 82.6 fL Normal 80.0-100.0 [facility] Comment on above: Order Comment: Speci men Type: BLOOD SPECIMENOrdering Facility: [facility] Address: [address] [place] [address] Performed By: #### 5 8410-2 ####[facility] LABORATORYCLIA [id number] [place] [address] [place] Nucleated RBC (Bld) [#/Vol] 10*3/uL Normal <0.01 [facility] Comment on above: Order Comment: Speci men Type: BLOOD SPECIMENOrdering Facility: [facility] Address: [address] [place] [address] Performed By: #### 5 8410-2 ####[facility] LABORATORYCLIA [id number] [place] [address] [place] Platelet mean volume (Bld) [Entitic vol] 8.3 fL Low 9.0-12.7 [facility] Comment on above: Order Comment: Speci men Type: BLOOD SPECIMENOrdering Facility: [facility] Address: [address] [place] [address] Performed By: #### 5 8410-2 ####[facility] LABORATORYCLIA [id number] [place] [address] [place] Platelets (Bld) [#/Vol] 503 10*3/uL High 150-400 [facility] Comment on above: Order Comment: Speci men Type: BLOOD SPECIMENOrdering Facility: [facility] Address: [address] [place] [address] Performed By: #### 5 8410-2 ####[facility] LABORATORYCLIA [id number] [place] [address] [place] RBC (Bld) [#/Vol] 3.45 10*6/uL Low 4.20-6.00 [facility] Comment on above: Order Comment: Speci men Type: BLOOD SPECIMENOrdering Facility: [facility] Address: [address] [place] [address] Performed By: #### 5 8410-2 ####[facility] LABORATORYCLIA [id number] [place] [address] [place] WBC (Bld) [#/Vol] 10.33 10*3/uL Normal 3.70-11.00 [facility] Comment on above: Order Comment: Speci men Type: BLOOD SPECIMENOrdering Facility: [facility] Address: [address] [place] [address] Performed By: #### 5 8410-2 ####[facility] LABORATORYCLIA [id number] [place] [address] [place] CONSULT PROGon 08-09-2023 CONSULT PROG Normal [facility] Bacteria Ur Culton Bacteria identified Cx Nom (U) Abnormal [facility] Comment on above: Performed By: #### 6 30-4 ####[facility] LABCLIA [id number] [facility] [place] [address] [place] Basic metabolic 2000 panelon 08-08-2023 Anion gap [Moles/Vol] 14 mmol/L Normal 9-18 [facility] Comment on above: Order Comment: Speci men Type: BLOOD SPECIMENOrdering Facility: [facility] Address: [address] [place] [address] Performed By: #### 2 4321-2 ####[facility] LABORATORYCLIA [id number] [place] [id number] [place] Calcium [Mass/Vol] 8.3 mg/dL Low 8.5-10.2 [facility] Comment on above: Order Comment: Speci men Type: BLOOD SPECIMENOrdering Facility: [facility] Address: [address] [place] [address] Performed By: #### 2 4321-2 ####[facility] LABORATORYCLIA [id number] [place] [address] [place] Chloride [Moles/Vol] 100 mmol/L Normal 97-105 [facility] Comment on above: Order Comment: Speci men Type: BLOOD SPECIMENOrdering Facility: [facility] Address: [address] [place] [address] Performed By: #### 2 4321-2 ####[facility] LABORATORYCLIA [id number] [place] [id number] [place] CO2 [Moles/Vol] 24 mmol/L Normal 22-30 [facility] Comment on above: Order Comment: Speci men Type: BLOOD SPECIMENOrdering Facility: [facility] Address: [address] [place] [address] Performed By: #### 2 4321-2 ####[facility] LABORATORYCLIA [id number] [place] [address] [place] Creatinine [Mass/Vol] 0.44 mg/dL Low 0.73-1.22 [facility] Comment on above: Order Comment: Speci men Type: BLOOD SPECIMENOrdering Facility: [facility] Address: [address] [place] [address] Performed By: #### 2 4321-2 ####[facility] LABORATORYCLIA [id number] [place] [address] [place] Creatinine and Glomerular filtration rate.predicted panel (S/P/Bld) 124 mL/min/1.73m??? Normal >=60 [facility] Comment on above: Order Comment: Speci men Type: BLOOD SPECIMENOrdering Facility: [facility] Address: [address] [place] [address] Result Comment: Lola mated Glomerular Filtration Rate (eGFR) is calculated using the 2020 CKD-EPI creatinine equation. This equation utilizes serum creatinine, sex, and age as parameters. The creatinine assay has traceable calibration to isotope dilution-mass spectrometry. Refer to KDIGO guidelines for clinical interpretation. In patients with unstable renal function, e.g. those with acute kidney injury, the eGFR may not accurately reflect actual GFR. Performed By: #### 2 4321-2 ####[facility] LABORATORYCLIA [id number] [place] [id number] [place] Glucose [Mass/Vol] 137 mg/dL High 74-99 [facility] Comment on above: Order Comment: Speci men Type: BLOOD SPECIMENOrdering Facility: [facility] Address: [address] [place] [address] Result Comment: The [place] Diabetes [employer] (ADA) provides guidance for cutoff values for fasting glucose and random glucose. The ADA defines fasting as no caloric intake for at least 8 hours. Fasting plasma glucose results between 100 to 125 mg/dL indicate increased risk for diabetes (prediabetes).Fasting plasma glucose results greater than or equal to 126 mg/dL meet the criteria for diagnosis of diabetes. In the absence of unequivocal hyperglycemia, results should be confirmed by repeat testing. In a patient with classic symptoms of hyperglycemia or hyperglycemic crisis, random plasma glucose results greater than or equal to 200 mg/dL meet the criteria for diagnosis of diabetes.Reference: Standards of Medical Care in Diabetes 2016, [place] [employer]. Diabetes Care. 2016.39(Suppl 1). Performed By: #### 2 4321-2 ####[facility] PharmaCREST LABORATORYCLIA [id number] [place] [address] [place] Potassium [Moles/Vol] 4.2 mmol/L Normal 3.7-5.1 [facility] Comment on above: Order Comment: Doroteo zavala Type: BLOOD SPECIMENOrdering Facility: [facility] Address: [address] [place] [address] Performed By: #### 2 4321-2 ####[facility] PharmaCREST LABORATORYCLIA [id number] [place] [address] [place] Sodium [Moles/Vol] 138 mmol/L Normal 136-144 [facility] Comment on above: Order Comment: Speci men Type: BLOOD SPECIMENOrdering Facility: [facility] Address: [address] [place] [id number] Performed By: #### 2 4321-2 ####[facility] LABORATORYCLIA [id number] [place] [address] [place] Urea nitrogen [Mass/Vol] 8 mg/dL Low 9-24 [facility] Comment on above: Order Comment: Salinai men Type: BLOOD SPECIMENOrdering Facility: [facility] Address: [address] [place] [address] Performed By: #### 2 4321-2 ####[facility] LABORATORYCLIA [id number] [place] [id number] [place] CASE MANAGEMon 08-08-2023 CASE MANAGEM Normal [facility] CBC panel Auto (Bld)on 08-07 Erythrocyte distribution width (RBC) [Ratio] 22.3 % High 11.5-15.0 [facility] Comment on above: Order Comment: Speci men Type: BLOOD SPECIMENOrdering Facility: [facility] Address: [address] [place] [address] Performed By: #### 5 8410-2 ####[facility] LABORATORYCLIA [id number] [place] [address] [place] Hematocrit (Bld) [Volume fraction] 29.3 % Low 39.0-51.0 [facility] Comment on above: Order Comment: Speci men Type: BLOOD SPECIMENOrdering Facility: [facility] Address: [address] [place] [address] Performed By: #### 5 8410-2 ####[facility] LABORATORYCLIA [id number] [place] [address] [place] Hemoglobin (Bld) [Mass/Vol] 8.6 g/dL Low 13.0-17.0 [facility] Comment on above: Order Comment: Speci men Type: BLOOD SPECIMENOrdering Facility: [facility] Address: [address] [place] [address] Performed By: #### 5 8410-2 ####[facility] LABORATORYCLIA [id number] [place] [address] [place] MCH (RBC) [Entitic mass] 24.4 pg Low 26.0-34.0 [facility] Comment on above: Order Comment: Speci men Type: BLOOD SPECIMENOrdering Facility: [facility] Address: [address] [place] [address] Performed By: #### 5 8410-2 ####[facility] LABORATORYCLIA [id number] [place] [address] [place] MCHC (RBC) [Mass/Vol] 29.4 g/dL Low 30.5-36.0 [facility] Comment on above: Order Comment: Speci men Type: BLOOD SPECIMENOrdering Facility: [facility] Address: [address] [place] [address] Performed By: #### 5 8410-2 ####[facility] LABORATORYCLIA [id number] [place] [address] [place] MCV (RBC) [Entitic vol] 83.2 fL Normal 80.0-100.0 [facility] Comment on above: Order Comment: Speci men Type: BLOOD SPECIMENOrdering Facility: [facility] Address: [address] [place] [address] Performed By: #### 5 8410-2 ####[facility] LABORATORYCLIA [id number] [place] [address] [place] Nucleated RBC (Bld) [#/Vol] 10*3/uL Normal <0.01 [facility] Comment on above: Order Comment: Speci men Type: BLOOD SPECIMENOrdering Facility: [facility] Address: [address] [place] [address] Performed By: #### 5 8410-2 ####[facility] LABORATORYCLIA [id number] [place] [address] [place] Platelet mean volume (Bld) [Entitic vol] 8.4 fL Low 9.0-12.7 [facility] Comment on above: Order Comment: Speci men Type: BLOOD SPECIMENOrdering Facility: [facility] Address: [address] [place] [address] Performed By: #### 5 8410-2 ####[facility] LABORATORYCLIA [id number] [place] [address] [place] Platelets (Bld) [#/Vol] 511 10*3/uL High 150-400 [facility] Comment on above: Order Comment: Speci men Type: BLOOD SPECIMENOrdering Facility: [facility] Address: [address] [place], [place] [address] Performed By: #### 5 8410-2 ####[facility] LABORATORYCLIA [id number] [place] [address] [place] RBC (Bld) [#/Vol] 3.52 10*6/uL Low 4.20-6.00 [facility] Comment on above: Order Comment: Speci men Type: BLOOD SPECIMENOrdering Facility: [facility] Address: [address] [place] [address] Performed By: #### 5 8410-2 ####[facility] LABORATORYCLIA [id number] [place] [address] [place] WBC (Bld) [#/Vol] 10.78 10*3/uL Normal 3.70-11.00 [facility] Comment on above: Order Comment: Speci men Type: BLOOD SPECIMENOrdering Facility: [facility] Address: [address] [place] [address] Performed By: #### 5 8410-2 ####[facility] LABORATORYCLIA [id number] [place] [address] [place] CONSULTon 08-08-2023 CONSULT Normal [facility] CONSULT PROGon 08-08-2023 CONSULT PROG [facility] NUTRITION[facility] 08-08-2023 NUTRITION [facility] THERAPY NTon 08-08-2023 THERAPY NT [facility] URINALYSIS, REFLEX MICROSCOP ICon 08-08-2023 Bacteria LM.HPF (Urine sed) [#/Area] Moderate Abnormal None Seen [facility] Comment on above: Order Comment: Speci men Type: URINE SPECIMENOrdering Facility: [facility] Address: [address] [place] [address] Performed By: #### L [id number] ####[facility] LABORATORYCLIA [id number] [place] [address] [place] Bilirubin Ql (U) Negative Normal Negative [facility] Comment on above: Order Comment: Speci men Type: URINE SPECIMENOrdering Facility: [facility] Address: [address] [place] [address] Performed By: #### L [id number] ####[facility] LABORATORYCLIA [id number] [place] [address] [place] Clarity (Unsp spec) Slightly Cloudy Abnormal Clear [facility] Comment on above: Order Comment: Speci men Type: URINE SPECIMENOrdering Facility: [facility] Address: [address] [place] [address] Performed By: #### L [id number] ####[facility] LABORATORYCLIA [id number] [place] [address] [place] Color (U) Yellow Normal Yellow [facility] Comment on above: Order Comment: Speci men Type: URINE SPECIMENOrdering Facility: [facility] Address: [address] [place] [address] Performed By: #### L [id number] ####[facility] LABORATORYCLIA [id number] [place] [address] [place] Glucose Test strip (U) [Mass/Vol] Negative Normal Negative [facility] Comment on above: Order Comment: Speci men Type: URINE SPECIMENOrdering Facility: [facility] Address: [address] [place] [address] Performed By: #### L [id number] ####[facility] LABORATORYCLIA [id number] [place] [address] [place] Hemoglobin Ql (U) 3+ Abnormal Negative [facility] Comment on above: Order Comment: Speci men Type: URINE SPECIMENOrdering Facility: [facility] Address: [address] [place] [address] Performed By: #### L [id number] ####[facility] LABORATORYCLIA [id number] [place] [address] [place] Ketones Ql (U) Negative Normal Negative [facility] Comment on above: Order Comment: Speci men Type: URINE SPECIMENOrdering Facility: [facility] Address: [address] [place] [address] Performed By: #### L [id number] ####[facility] LABORATORYCLIA [id number] [place] [address] [place] Leukocyte esterase Test strip Ql (U) Trace Abnormal Negative [facility] Comment on above: Order Comment: Speci men Type: URINE SPECIMENOrdering Facility: [facility] Address: [address] [place] [address] Performed By: #### L [id number] ####[facility] LABORATORYCLIA [id number] [place] [address] [place] Nitrite Ql (U) Negative Normal Negative [facility] Comment on above: Order Comment: Speci men Type: URINE SPECIMENOrdering Facility: [facility] Address: [address] [place] [address] Performed By: #### L [id number] ####[facility] LABORATORYCLIA [id number] [place] [address] [place] pH (U) 7.0 [pH] Normal 5.0-8.0 [facility] Comment on above: Order Comment: Speci men Type: URINE SPECIMENOrdering Facility: [facility] Address: [address] [place] [address] Performed By: #### L [id number] ####[facility] LABORATORYCLIA [id number] [place] [address] [place] Protein (U) [Mass/Vol] 2+ Abnormal Negative [facility] Comment on above: Order Comment: Speci men Type: URINE SPECIMENOrdering Facility: [facility] Address: [address] [place] [address] Performed By: #### L [id number] ####[facility] LABORATORYCLIA [id number] [place] [address] [place] RBC LM.HPF (Urine sed) [#/Area] 0-3 /HPF Normal 0-3 /HPF [facility] Comment on above: Order Comment: Speci men Type: URINE SPECIMENOrdering Facility: [facility] Address: [address] [place] [address] Performed By: #### L [id number] ####[facility] LABORATORYCLIA [id number] [place] [address] [place] Specific gravity (U) [Rel density] 1.015 Normal 1.005-1.030 [facility] Comment on above: Order Comment: Speci men Type: URINE SPECIMENOrdering Facility: [facility] Address: [address] [place] [address] Performed By: #### L [id number] ####[facility] LABORATORYCLIA [id number] [place] [address] [place] Urobilinogen Ql (U) 0.2 EU/dL Normal 0.2-1.0 EU/dL [facility] Comment on above: Order Comment: Speci men Type: URINE SPECIMENOrdering Facility: [facility] Address: [address] [place] [address] Performed By: #### L [id number] ####[facility] LABORATORYCLIA [id number] [place] [address] [place] WBC LM.HPF (Urine sed) [#/Area] 0-5 /HPF Normal 0-5 /HPF [facility] Comment on above: Order Comment: Speci men Type: URINE SPECIMENOrdering Facility: [facility] Address: [address] [place] [address] Performed By: #### L [id number] ####[facility] LABORATORYCLIA [id number] [place] [address] [place] Yeast.budding LM.HPF (Urine sed) [#/Area] Few Abnormal None Seen [facility] Comment on above: Order Comment: Speci men Type: URINE SPECIMENOrdering Facility: [facility] Address: [address] [place] [address] Performed By: #### L [id number] ####[facility] LABORATORYCLIA [id number] [place] [address] [place] Basic metabolic 2000 panelon 08-07-2023 Anion gap [Moles/Vol] 14 mmol/L Normal 9-18 [facility] Comment on above: Order Comment: Speci men Type: BLOOD SPECIMENOrdering Facility: [facility] Address: [address] [place] [address] Performed By: #### 2 4321-2 ####[facility] LABORATORYCLIA [id number] [place] [id number] [place] Calcium [Mass/Vol] 8.5 mg/dL Normal 8.5-10.2 [facility] Comment on above: Order Comment: Speci men Type: BLOOD SPECIMENOrdering Facility: [facility] Address: [address] [place] [address] Performed By: #### 2 4321-2 ####[facility] LABORATORYCLIA [id number] [place] [address] [place] Chloride [Moles/Vol] 99 mmol/L Normal 97-105 [facility] Comment on above: Order Comment: Speci men Type: BLOOD SPECIMENOrdering Facility: [facility] Address: [facility] [place] [address] Performed By: #### 2 4321-2 ####[facility] LABORATORYCLIA [id number] [place] [address] [place] CO2 [Moles/Vol] 25 mmol/L Normal 22-30 [facility] Comment on above: Order Comment: Speci men Type: BLOOD SPECIMENOrdering Facility: [facility] Address: [address] [place] [address] Performed By: #### 2 4321-2 ####[facility] LABORATORYCLIA [id number] [place] [id number] [place] Creatinine [Mass/Vol] 0.47 mg/dL Low 0.73-1.22 [facility] Comment on above: Order Comment: Speci men Type: BLOOD SPECIMENOrdering Facility: [facility] Address: [facility] [place] [address] Performed By: #### 2 4321-2 ####[facility] LABORATORYCLIA [id number] [place] [address] [place] Creatinine and Glomerular filtration rate.predicted panel (S/P/Bld) 122 mL/min/1.73m??? Normal >=60 [facility] Comment on above: Order Comment: Doroteo zavala Type: BLOOD SPECIMENOrdering Facility: [facility] Address: [address] [place] [address] Result Comment: Lola janak Glomerular Filtration Rate (eGFR) is calculated using the 2020 CKD-EPI creatinine equation. This equation utilizes serum creatinine, sex, and age as parameters. The creatinine assay has traceable calibration to isotope dilution-mass spectrometry. Refer to KDIGO guidelines for clinical interpretation. In patients with unstable renal function, e.g. those with acute kidney injury, the eGFR may not accurately reflect actual GFR. Performed By: #### 2 4321-2 ####[facility] LABORATORYCLIA [id number] [place] [address] [place] Glucose [Mass/Vol] 157 mg/dL High 74-99 [facility] Comment on above: Order Comment: Doroteo zavala Type: BLOOD SPECIMENOrdering Facility: [facility] Address: [address] [place] [address] Result Comment: The [place] Diabetes Association (ADA) provides guidance for cutoff values for fasting glucose and random glucose. The ADA defines fasting as no caloric intake for at least 8 hours. Fasting plasma glucose results between 100 to 125 mg/dL indicate increased risk for diabetes (prediabetes).Fasting plasma glucose results greater than or equal to 126 mg/dL meet the criteria for diagnosis of diabetes. In the absence of unequivocal hyperglycemia, results should be confirmed by repeat testing. In a patient with classic symptoms of hyperglycemia or hyperglycemic crisis, random plasma glucose results greater than or equal to 200 mg/dL meet the criteria for diagnosis of diabetes.Reference: Standards of Medical Care in Diabetes 2016, [place] [employer]. Diabetes Care. 2016.39(Suppl 1). Performed By: #### 2 4321-2 ####[facility] LABORATORYCLIA [id number] [place] [id number] [place] Potassium [Moles/Vol] 4.1 mmol/L Normal 3.7-5.1 [facility] Comment on above: Order Comment: Doroteo zavala Type: BLOOD SPECIMENOrdering Facility: [facility] Address: [address] [place] [address] Performed By: #### 2 4321-2 ####[facility] LABORATORYCLIA [id number] [place] [id number] [place] Sodium [Moles/Vol] 138 mmol/L Normal 136-144 [facility] Comment on above: Order Comment: Speci men Type: BLOOD SPECIMENOrdering Facility: [facility] Address: [address] [place] [address] Performed By: #### 2 4321-2 ####[facility] LABORATORYCLIA [id number] [place] [address] [place] Urea nitrogen [Mass/Vol] 7 mg/dL Low 9-24 [facility] Comment on above: Order Comment: Speci men Type: BLOOD SPECIMENOrdering Facility: [facility] Address: [address] [place] [address] Performed By: #### 2 4321-2 ####[facility] LABORATORYCLIA [id number] [place] [address] [place] CBC panel Auto (Bld)on 08-06 Erythrocyte distribution width (RBC) [Ratio] 22.6 % High 11.5-15.0 [facility] Comment on above: Order Comment: Speci men Type: BLOOD SPECIMENOrdering Facility: [facility] Address: [address] [place] [address] Performed By: #### 5 8410-2 ####[facility] LABORATORYCLIA [id number] [place] [address] [place] Hematocrit (Bld) [Volume fraction] 30.3 % Low 39.0-51.0 [facility] Comment on above: Order Comment: Speci men Type: BLOOD SPECIMENOrdering Facility: [facility] Address: [address] [place] [address] Performed By: #### 5 8410-2 ####[facility] LABORATORYCLIA [id number] [place] [address] [place] Hemoglobin (Bld) [Mass/Vol] 8.8 g/dL Low 13.0-17.0 [facility] Comment on above: Order Comment: Speci men Type: BLOOD SPECIMENOrdering Facility: [facility] Address: [address] [place] [address] Performed By: #### 5 8410-2 ####[facility] LABORATORYCLIA [id number] [place] [address] [place] MCH (RBC) [Entitic mass] 24.0 pg Low 26.0-34.0 [facility] Comment on above: Order Comment: Speci men Type: BLOOD SPECIMENOrdering Facility: [facility] Address: [address] [place] [address] Performed By: #### 5 8410-2 ####[facility] LABORATORYCLIA [id number] [place] [address] [place] MCHC (RBC) [Mass/Vol] 29.0 g/dL Low 30.5-36.0 [facility] Comment on above: Order Comment: Speci men Type: BLOOD SPECIMENOrdering Facility: [facility] Address: [address] [place] [address] Performed By: #### 5 8410-2 ####[facility] LABORATORYCLIA [id number] [place] [address] [place] MCV (RBC) [Entitic vol] 82.8 fL Normal 80.0-100.0 [facility] Comment on above: Order Comment: Speci men Type: BLOOD SPECIMENOrdering Facility: [facility] Address: [address] [place] [address] Performed By: #### 5 8410-2 ####[facility] LABORATORYCLIA [id number] [address] [place] Nucleated RBC (Bld) [#/Vol] 10*3/uL Normal <0.01 [facility] Comment on above: Order Comment: Speci men Type: BLOOD SPECIMENOrdering Facility: [facility] Address: [address] [place] [address] Performed By: #### 5 8410-2 ####[facility] LABORATORYCLIA [id number] [place] [address] [place] Platelet mean volume (Bld) [Entitic vol] 8.6 fL Low 9.0-12.7 [facility] Comment on above: Order Comment: Speci men Type: BLOOD SPECIMENOrdering Facility: [facility] Address: [address] [place] [address] Performed By: #### 5 8410-2 ####[facility] LABORATORYCLIA [id number] [place] [address] [place] Platelets (Bld) [#/Vol] 530 10*3/uL High 150-400 [facility] Comment on above: Order Comment: Speci men Type: BLOOD SPECIMENOrdering Facility: [facility] Address: [address] [place] [address] Performed By: #### 5 8410-2 ####[facility] LABORATORYCLIA [id number] [place] [address] [place] RBC (Bld) [#/Vol] 3.66 10*6/uL Low 4.20-6.00 [facility] Comment on above: Order Comment: Speci men Type: BLOOD SPECIMENOrdering Facility: [facility] Address: [address] [place] [address] Performed By: #### 5 8410-2 ####[facility] LABORATORYCLIA [id number] [place] [address] [place] WBC (Bld) [#/Vol] 10.71 10*3/uL Normal 3.70-11.00 [facility] Comment on above: Order Comment: Speci men Type: BLOOD SPECIMENOrdering Facility: [facility] Address: [address] [place] [address] Performed By: #### 5 8410-2 ####[facility] LABORATORYCLIA [id number] [place] [address] [place] CONSULT PROGon 08-07-2023 CONSULT PROG Normal [facility] Basic metabolic 2000 panelon 08-06-2023 Anion gap [Moles/Vol] 9 mmol/L Normal 9-18 [facility] Comment on above: Order Comment: Speci men Type: BLOOD SPECIMENOrdering Facility: [facility] Address: [address] [place] [address] Performed By: #### 2 4321-2 ####[facility] LABORATORYCLIA [id number] [place] [id number] [place] Calcium [Mass/Vol] 8.1 mg/dL Low 8.5-10.2 [facility] Comment on above: Order Comment: Speci men Type: BLOOD SPECIMENOrdering Facility: [facility] Address: [address] [place] [address] Performed By: #### 2 4321-2 ####[facility] LABORATORYCLIA [id number] [place] [address] [place] Chloride [Moles/Vol] 102 mmol/L Normal 97-105 [facility] Comment on above: Order Comment: Speci men Type: BLOOD SPECIMENOrdering Facility: [facility] Address: [address] [place] [address] Performed By: #### 2 4321-2 ####[facility] LABORATORYCLIA [id number] [place] [id number] [place] CO2 [Moles/Vol] 27 mmol/L Normal 22-30 [facility] Comment on above: Order Comment: Speci men Type: BLOOD SPECIMENOrdering Facility: [facility] Address: [address] [place] [address] Performed By: #### 2 4321-2 ####[facility] LABORATORYCLIA [id number] [place] [id number] [place] Creatinine [Mass/Vol] 0.45 mg/dL Low 0.73-1.22 [facility] Comment on above: Order Comment: Speci men Type: BLOOD SPECIMENOrdering Facility: [facility] Address: [address] [place] [address] Performed By: #### 2 4321-2 ####[facility] LABORATORYCLIA [id number] [place] [address] [place] Creatinine and Glomerular filtration rate.predicted panel (S/P/Bld) 124 mL/min/1.73m??? Normal >=60 [facility] Comment on above: Order Comment: Doroteo zavala Type: BLOOD SPECIMENOrdering Facility: [facility] Address: [address] [place] [address] Result Comment: Lola janak Glomerular Filtration Rate (eGFR) is calculated using the 2020 CKD-EPI creatinine equation. This equation utilizes serum creatinine, sex, and age as parameters. The creatinine assay has traceable calibration to isotope dilution-mass spectrometry. Refer to KDIGO guidelines for clinical interpretation. In patients with unstable renal function, e.g. those with acute kidney injury, the eGFR may not accurately reflect actual GFR. Performed By: #### 2 4321-2 ####[facility] LABORATORYCLIA [id number] [place] [address] [place] Glucose [Mass/Vol] 119 mg/dL High 74-99 [facility] Comment on above: Order Comment: Doroteo zavala Type: BLOOD SPECIMENOrdering Facility: [facility] Address: [address] [place] [address] Result Comment: The [place] [employer] (ADA) provides guidance for cutoff values for fasting glucose and random glucose. The ADA defines fasting as no caloric intake for at least 8 hours. Fasting plasma glucose results between 100 to 125 mg/dL indicate increased risk for diabetes (prediabetes).Fasting plasma glucose results greater than or equal to 126 mg/dL meet the criteria for diagnosis of diabetes. In the absence of unequivocal hyperglycemia, results should be confirmed by repeat testing. In a patient with classic symptoms of hyperglycemia or hyperglycemic crisis, random plasma glucose results greater than or equal to 200 mg/dL meet the criteria for diagnosis of diabetes.Reference: Standards of Medical Care in Diabetes 2016, [place] [employer]. Diabetes Care. 2016.39(Suppl 1). Performed By: #### 2 4321-2 ####[facility] LABORATORYCLIA [id number] [place] [id number] [place] Potassium [Moles/Vol] 4.0 mmol/L Normal 3.7-5.1 [facility] Comment on above: Order Comment: Doroteo zavala Type: BLOOD SPECIMENOrdering Facility: [facility] Address: [address] [place], [place] [address] [address] Performed By: #### 2 4321-2 ####[facility] LABORATORYCLIA [id number] [place] [id number] [place] Sodium [Moles/Vol] 138 mmol/L Normal 136-144 [facility] Comment on above: Order Comment: Speci men Type: BLOOD SPECIMENOrdering Facility: [facility] Address: [facility] [place] [address] Performed By: #### 2 4321-2 ####[facility] LABORATORYCLIA [id number] [place] [address] [place] Urea nitrogen [Mass/Vol] 6 mg/dL Low 9-24 [facility] Comment on above: Order Comment: Speci men Type: BLOOD SPECIMENOrdering Facility: [facility] Address: [facility] [place] [address] Performed By: #### 2 4321-2 ####[facility] LABORATORYCLIA [id number] [place] [address] [place] CBC panel Auto (Bld)on 08-05 Erythrocyte distribution width (RBC) [Ratio] 22.9 % High 11.5-15.0 [facility] Comment on above: Order Comment: Speci men Type: BLOOD SPECIMENOrdering Facility: [facility] Address: [facility] [place] [address] Performed By: #### 5 8410-2 ####[facility] LABORATORYCLIA [id number] [place] [address] [place] Hematocrit (Bld) [Volume fraction] 27.2 % Low 39.0-51.0 [facility] Comment on above: Order Comment: Speci men Type: BLOOD SPECIMENOrdering Facility: [facility] Address: [facility] [place] [place] [address] Performed By: #### 5 8410-2 ####[facility] LABORATORYCLIA [id number] [place] [id number] [place] Hemoglobin (Bld) [Mass/Vol] 8.1 g/dL Low 13.0-17.0 [facility] Comment on above: Order Comment: Speci men Type: BLOOD SPECIMENOrdering Facility: [facility] Address: [address] [place] [address] Performed By: #### 5 8410-2 ####[facility]ORATORYCLIA [id number] [place] [address] [place] MCH (RBC) [Entitic mass] 24.7 pg Low 26.0-34.0 [facility] Comment on above: Order Comment: Speci men Type: BLOOD SPECIMENOrdering Facility: [facility] Address: [address] [place] [address] Performed By: #### 5 8410-2 ####[facility] LABORATORYCLIA [id number] [place] [address] [place] MCHC (RBC) [Mass/Vol] 29.8 g/dL Low 30.5-36.0 [facility] Comment on above: Order Comment: Speci men Type: BLOOD SPECIMENOrdering Facility: [facility] Address: [address] [place] [address] Performed By: #### 5 8410-2 ####[facility] LABORATORYCLIA [id number] [place] [address] [place] MCV (RBC) [Entitic vol] 82.9 fL Normal 80.0-100.0 [facility] Comment on above: Order Comment: Speci men Type: BLOOD SPECIMENOrdering Facility: [facility] Address: [address] [place] [address] Performed By: #### 5 8410-2 ####[facility] LABORATORYCLIA [id number] [place] [address] [place] Nucleated RBC (Bld) [#/Vol] 10*3/uL Normal <0.01 [facility] Comment on above: Order Comment: Speci men Type: BLOOD SPECIMENOrdering Facility: [facility] Address: [address] [place] [address] Performed By: #### 5 8410-2 ####[facility] LABORATORYCLIA [id number] [place] [address] [place] Platelet mean volume (Bld) [Entitic vol] 8.7 fL Low 9.0-12.7 [facility] Comment on above: Order Comment: Speci men Type: BLOOD SPECIMENOrdering Facility: [facility] Address: [address] [place] [address] Performed By: #### 5 8410-2 ####[facility] LABORATORYCLIA [id number] [place] [address] [place] Platelets (Bld) [#/Vol] 474 10*3/uL High 150-400 [facility] Comment on above: Order Comment: Speci men Type: BLOOD SPECIMENOrdering Facility: [facility] Address: [address] [place] [address] Performed By: #### 5 8410-2 ####[facility] LABORATORYCLIA [id number] [place] [address] [place] RBC (Bld) [#/Vol] 3.28 10*6/uL Low 4.20-6.00 [facility] Comment on above: Order Comment: Speci men Type: BLOOD SPECIMENOrdering Facility: [facility] Address: [address] [place] [address] Performed By: #### 5 8410-2 ####[facility] LABORATORYCLIA [id number] [place] [address] [place] WBC (Bld) [#/Vol] 9.55 10*3/uL Normal 3.70-11.00 [facility] Comment on above: Order Comment: Speci men Type: BLOOD SPECIMENOrdering Facility: [facility] Address: [address] [place] [address] Performed By: #### 5 8410-2 ####[facility] LABORATORYCLIA [id number] [place] [address] [place] CONSULT PROGon 08-06-2023 CONSULT PROG Normal [facility] CONSULT PROG Normal [facility] Basic metabolic 2000 panelon 08-05-2023 Anion gap [Moles/Vol] 12 mmol/L Normal 9-18 [facility] Comment on above: Order Comment: Speci men Type: BLOOD SPECIMENOrdering Facility: [facility] Address: [address] [place] [address] Performed By: #### 2 4321-2 ####[facility] LABORATORYCLIA [id number] [place] [address] [place] Calcium [Mass/Vol] 8.2 mg/dL Low 8.5-10.2 [facility] Comment on above: Order Comment: Speci men Type: BLOOD SPECIMENOrdering Facility: [facility] Address: [address] [place] [address] Performed By: #### 2 4321-2 ####[facility] LABORATORYCLIA [id number] [place] [address] [place] Chloride [Moles/Vol] 100 mmol/L Normal 97-105 [facility] Comment on above: Order Comment: Speci men Type: BLOOD SPECIMENOrdering Facility: [facility] Address: [address] [place] [address] Performed By: #### 2 4321-2 ####[facility] LABORATORYCLIA [id number] [place] [address] [place] CO2 [Moles/Vol] 26 mmol/L Normal 22-30 [facility] Comment on above: Order Comment: Speci men Type: BLOOD SPECIMENOrdering Facility: [facility] Address: [address] [place] [address] Performed By: #### 2 4321-2 ####[facility] LABORATORYCLIA [id number] [place] [address] [place] Creatinine [Mass/Vol] 0.44 mg/dL Low 0.73-1.22 [facility] Comment on above: Order Comment: Speci men Type: BLOOD SPECIMENOrdering Facility: [facility] Address: [address] [place] [address] Performed By: #### 2 4321-2 ####[facility] LABORATORYCLIA [id number] [place] [address] [place] Creatinine and Glomerular filtration rate.predicted panel (S/P/Bld) 124 mL/min/1.73m??? Normal >=60 [facility] Comment on above: Order Comment: Doroteo zavala Type: BLOOD SPECIMENOrdering Facility: [facility] Address: [address] [place] [address] Result Comment: Lola [facility] Glomerular Filtration Rate (eGFR) is calculated using the 2020 CKD-EPI creatinine equation. This equation utilizes serum creatinine, sex, and age as parameters. The creatinine assay has traceable calibration to isotope dilution-mass spectrometry. Refer to KDIGO guidelines for clinical interpretation. In patients with unstable renal function, e.g. those with acute kidney injury, the eGFR may not accurately reflect actual GFR. Performed By: #### 2 4321-2 ####[facility] LABORATORYCLIA [id number] [place] [address] [place] Glucose [Mass/Vol] 137 mg/dL High 74-99 [facility] Comment on above: Order Comment: Doroteo zavala Type: BLOOD SPECIMENOrdering Facility: [facility] Address: [address] [place] [address] Result Comment: The [place] Diabetes [employer] (ADA) provides guidance for cutoff values for fasting glucose and random glucose. The ADA defines fasting as no caloric intake for at least 8 hours. Fasting plasma glucose results between 100 to 125 mg/dL indicate increased risk for diabetes (prediabetes).Fasting plasma glucose results greater than or equal to 126 mg/dL meet the criteria for diagnosis of diabetes. In the absence of unequivocal hyperglycemia, results should be confirmed by repeat testing. In a patient with classic symptoms of hyperglycemia or hyperglycemic crisis, random plasma glucose results greater than or equal to 200 mg/dL meet the criteria for diagnosis of diabetes.Reference: Standards of Medical Care in Diabetes 2016, [place] [employer]. Diabetes Care. 2016.39(Suppl 1). Performed By: #### 2 4321-2 ####[facility] LABORATORYCLIA [id number] [place] [id number] [place] Potassium [Moles/Vol] 4.1 mmol/L Normal 3.7-5.1 [facility] Comment on above: Order Comment: Speci men Type: BLOOD SPECIMENOrdering Facility: [facility] Address: [address] [place] [address] Performed By: #### 2 4321-2 ####[facility] LABORATORYCLIA [id number] [place] [id number] [place] Sodium [Moles/Vol] 138 mmol/L Normal 136-144 [facility] Comment on above: Order Comment: Speci men Type: BLOOD SPECIMENOrdering Facility: [facility] Address: [address] [place] [address] Performed By: #### 2 4321-2 ####[facility] LABORATORYCLIA [id number] [place] [id number] [place] Urea nitrogen [Mass/Vol] 6 mg/dL Low 9-24 [facility] Comment on above: Order Comment: Speci men Type: BLOOD SPECIMENOrdering Facility: [facility] Address: [address] [place] [address] Performed By: #### 2 4321-2 ####[facility] LABORATORYCLIA [id number] [place] [id number] [place] CASE MANAGEMon 08-05-2023 CASE MANAGEM Normal [facility] CBC panel Auto (Bld)on 08-04 Erythrocyte distribution width (RBC) [Ratio] 22.4 % High 11.5-15.0 [facility] Comment on above: Order Comment: Speci men Type: BLOOD SPECIMENOrdering Facility: [facility] Address: [address] [place] [address] Performed By: #### 5 8410-2 ####[facility] LABORATORYCLIA [id number] [place] [address] [place] Hematocrit (Bld) [Volume fraction] 28.1 % Low 39.0-51.0 [facility] Comment on above: Order Comment: Speci men Type: BLOOD SPECIMENOrdering Facility: [facility] Address: [address] [place] [address] Performed By: #### 5 8410-2 ####[facility] LABORATORYCLIA [id number] [place] [address] [place] Hemoglobin (Bld) [Mass/Vol] 8.5 g/dL Low 13.0-17.0 [facility] Comment on above: Order Comment: Speci men Type: BLOOD SPECIMENOrdering Facility: [facility] Address: [address] [place] [address] Performed By: #### 5 8410-2 ####[facility] LABORATORYCLIA [id number] [place] [address] [place] MCH (RBC) [Entitic mass] 24.3 pg Low 26.0-34.0 [facility] Comment on above: Order Comment: Speci men Type: BLOOD SPECIMENOrdering Facility: [facility] Address: [address] [place] [address] Performed By: #### 5 8410-2 ####[facility] LABORATORYCLIA [id number] [address] [place] MCHC (RBC) [Mass/Vol] 30.2 g/dL Low 30.5-36.0 [facility] Comment on above: Order Comment: Speci men Type: BLOOD SPECIMENOrdering Facility: [facility] Address: [address] [place] [address] Performed By: #### 5 8410-2 ####[facility] LABORATORYCLIA [id number] [place] [address] [place] MCV (RBC) [Entitic vol] 80.3 fL Normal 80.0-100.0 [facility] Comment on above: Order Comment: Speci men Type: BLOOD SPECIMENOrdering Facility: [facility] Address: [address] [place] [address] Performed By: #### 5 8410-2 ####[facility]ORATORYCLIA [id number] [place] [address] [place] Nucleated RBC (Bld) [#/Vol] 10*3/uL Normal <0.01 [facility] Comment on above: Order Comment: Speci men Type: BLOOD SPECIMENOrdering Facility: [facility] Address: [facility] [place] [address] Performed By: #### 5 8410-2 ####[facility] LABORATORYCLIA [id number] [place] [address] [place] Platelet mean volume (Bld) [Entitic vol] 8.4 fL Low 9.0-12.7 [facility] Comment on above: Order Comment: Speci men Type: BLOOD SPECIMENOrdering Facility: [facility] Address: [address] [place] [address] Performed By: #### 5 8410-2 ####[facility] LABORATORYCLIA [id number] [place] [address] [place] Platelets (Bld) [#/Vol] 449 10*3/uL High 150-400 [facility] Comment on above: Order Comment: Speci men Type: BLOOD SPECIMENOrdering Facility: [facility] Address: [address] [place] [address] Performed By: #### 5 8410-2 ####[facility] LABORATORYCLIA [id number] [place] [address] [place] RBC (Bld) [#/Vol] 3.50 10*6/uL Low 4.20-6.00 [facility] Comment on above: Order Comment: Speci men Type: BLOOD SPECIMENOrdering Facility: [facility] Address: [facility] [place] [address] Performed By: #### 5 8410-2 ####[facility] LABORATORYCLIA [id number] [place] [address] [place] WBC (Bld) [#/Vol] 12.35 10*3/uL High 3.70-11.00 [facility] Comment on above: Order Comment: Speci men Type: BLOOD SPECIMENOrdering Facility: [facility] Address: [address] [place] [address] Performed By: #### 5 8410-2 ####[facility] LABORATORYCLIA [id number] [place] [address] [place] CONSULT PROGon 08-05-2023 CONSULT PROG Normal [facility] CONSULT PROG Normal [facility] CONSULT PROG Normal [facility] THERAPY NTon 08-05-2023 THERAPY NT Normal [facility] THERAPY NT Normal [facility] CASE MANAGEMon 08-04-2023 CASE MANAGEM Normal [facility] CBC W Auto Differential pane l (Bld)on 08-04-2023 Anisocytosis Ql (Bld) Present Normal [facility] Comment on above: Order Comment: Speci men Type: BLOOD SPECIMENOrdering Facility: [facility] Address: [address] [place] [address] Performed By: #### 5 7021-8 ####[facility] LABORATORYCLIA [id number] [place] [address] [place] Basophils (Bld) [#/Vol] 0.12 10*3/uL High <0.11 [facility] Comment on above: Order Comment: Speci men Type: BLOOD SPECIMENOrdering Facility: [facility] Address: [address] [place] [address] Performed By: #### 5 7021-8 ####[facility] LABORATORYCLIA [id number] [place] [address] [place] Basophils/100 WBC (Bld) 1.0 % Normal [facility] Comment on above: Order Comment: Speci men Type: BLOOD SPECIMENOrdering Facility: [facility] Address: [address] [place] [address] Performed By: #### 5 7021-8 ####[facility] LABORATORYCLIA [id number] [place] [address] [place] Dacrocytes LM Ql (Bld) Few Normal [facility] Comment on above: Order Comment: Speci men Type: BLOOD SPECIMENOrdering Facility: [facility] Address: [address] [place] [address] Performed By: #### 5 7021-8 ####[facility] LABORATORYCLIA [id number] [place] [address] [place] Differential cell count method Nom (Bld) Manual Normal [facility] Comment on above: Order Comment: Speci men Type: BLOOD SPECIMENOrdering Facility: [facility] Address: [address] [place] [address] Performed By: #### 5 7021-8 ####[facility] LABORATORYCLIA [id number] [place] [address] [place] Eosinophils (Bld) [#/Vol] 0.00 10*3/uL Normal <0.46 [facility] Comment on above: Order Comment: Speci men Type: BLOOD SPECIMENOrdering Facility: [facility] Address: [address] [place] [address] Performed By: #### 5 7021-8 ####[facility] LABORATORYCLIA [id number] [place] [address] [place] Eosinophils/100 WBC (Bld) 0.0 % Normal [facility] Comment on above: Order Comment: Speci men Type: BLOOD SPECIMENOrdering Facility: [facility] Address: [address] [place] [address] Performed By: #### 5 7021-8 ####[facility] LABORATORYCLIA [id number] [place] [address] [place] Erythrocyte distribution width (RBC) [Ratio] 25.2 % High 11.5-15.0 [facility] Comment on above: Order Comment: Speci men Type: BLOOD SPECIMENOrdering Facility: [facility] Address: [address] [place] [address] Performed By: #### 5 7021-8 ####[facility] LABORATORYCLIA [id number] [place] [address] [place] Hematocrit (Bld) [Volume fraction] 23.9 % Low 39.0-51.0 [facility] Comment on above: Order Comment: Speci men Type: BLOOD SPECIMENOrdering Facility: [facility] Address: [address] [place] [address] Performed By: #### 5 7021-8 ####[facility] LABORATORYCLIA [id number] [place] [address] [place] Hemoglobin (Bld) [Mass/Vol] 6.9 g/dL Low 13.0-17.0 [facility] Comment on above: Order Comment: Speci men Type: BLOOD SPECIMENOrdering Facility: [facility] Address: [address] [place] [address] Performed By: #### 5 7021-8 ####[facility] LABORATORYCLIA [id number] [place] [address] [place] Lymphocytes (Bld) [#/Vol] 2.87 10*3/uL Normal 1.00-4.00 [facility] Comment on above: Order Comment: Speci men Type: BLOOD SPECIMENOrdering Facility: [facility] Address: [address] [place] [address] Performed By: #### 5 7021-8 ####[facility] LABORATORYCLIA [id number] [place] [address] [place] Lymphocytes/100 WBC (Bld) 23.0 % Normal [facility] Comment on above: Order Comment: Speci men Type: BLOOD SPECIMENOrdering Facility: [facility] Address: [address] [place] [address] Performed By: #### 5 7021-8 ####[facility] LABORATORYCLIA [id number] [place] [address] [place] MCH (RBC) [Entitic mass] 22.7 pg Low 26.0-34.0 [facility] Comment on above: Order Comment: Speci men Type: BLOOD SPECIMENOrdering Facility: [facility] Address: [address] [place] [address] Performed By: #### 5 7021-8 ####[facility] LABORATORYCLIA [id number] [place] [address] [place] MCHC (RBC) [Mass/Vol] 28.9 g/dL Low 30.5-36.0 [facility] Comment on above: Order Comment: Speci men Type: BLOOD SPECIMENOrdering Facility: [facility] Address: [address] [place] [address] Performed By: #### 5 7021-8 ####[facility] LABORATORYCLIA [id number] [place] [address] [place] MCV (RBC) [Entitic vol] 78.6 fL Low 80.0-100.0 [facility] Comment on above: Order Comment: Speci men Type: BLOOD SPECIMENOrdering Facility: [facility] Address: [address] [place] [address] Performed By: #### 5 7021-8 ####[facility] LABORATORYCLIA [id number] [place] [address] [place] Metamyelocytes/100 WBC (Bld) 1.0 % Normal [facility] Comment on above: Order Comment: Speci men Type: BLOOD SPECIMENOrdering Facility: [facility] Address: [address] [place] [address] Performed By: #### 5 7021-8 ####[facility] LABORATORYCLIA [id number] [place] [address] [place] Monocytes (Bld) [#/Vol] 0.37 10*3/uL Normal <0.87 [facility] Comment on above: Order Comment: Speci men Type: BLOOD SPECIMENOrdering Facility: [facility] Address: [address] [place] [address] Performed By: #### 5 7021-8 ####[facility] LABORATORYCLIA [id number] [place] [address] [place] Monocytes/100 WBC (Bld) 3.0 % Normal [facility] Comment on above: Order Comment: Speci men Type: BLOOD SPECIMENOrdering Facility: [facility] Address: [address] [place] [address] Performed By: #### 5 7021-8 ####[facility] LABORATORYCLIA [id number] [place] [address] [place] Neutrophils (Bld) [#/Vol] 8.97 10*3/uL High 1.45-7.50 [facility] Comment on above: Order Comment: Speci men Type: BLOOD SPECIMENOrdering Facility: [facility] Address: [address] [place] [address] Performed By: #### 5 7021-8 ####[facility] LABORATORYCLIA [id number] [place] [address] [place] Neutrophils/100 WBC (Bld) 72.0 % Normal [facility] Comment on above: Order Comment: Speci men Type: BLOOD SPECIMENOrdering Facility: [facility] Address: [address] [place] [address] Performed By: #### 5 7021-8 ####[facility] LABORATORYCLIA [id number] [place] [address] [place] Nucleated RBC (Bld) [#/Vol] 10*3/uL Normal <0.01 [facility] Comment on above: Order Comment: Speci men Type: BLOOD SPECIMENOrdering Facility: [facility] Address: [address] [place] [address] Performed By: #### 5 7021-8 ####[facility] LABORATORYCLIA [id number] [place] [address] [place] Nucleated RBC/100 WBC (Bld) [Ratio] 0.0 /100 WBC Normal [facility] Comment on above: Order Comment: Speci men Type: BLOOD SPECIMENOrdering Facility: [facility] Address: [address] [place] [address] Performed By: #### 5 7021-8 ####[facility]ORATORYCLIA [id number] [place] [address] [place] Ovalocytes LM Ql (Bld) Few Normal [facility] Comment on above: Order Comment: Speci men Type: BLOOD SPECIMENOrdering Facility: [facility] Address: [address] [place] [address] Performed By: #### 5 7021-8 ####[facility] LABORATORYCLIA [id number] [place] [address] [place] Platelet mean volume (Bld) [Entitic vol] 8.6 fL Low 9.0-12.7 [facility] Comment on above: Order Comment: Speci men Type: BLOOD SPECIMENOrdering Facility: [facility] Address: [address] [place] [address] Performed By: #### 5 7021-8 ####[facility] LABORATORYCLIA [id number] [place] [address] [place] Platelets (Bld) [#/Vol] 494 10*3/uL High 150-400 [facility] Comment on above: Order Comment: Speci men Type: BLOOD SPECIMENOrdering Facility: [facility] Address: [address] [place] [address] Performed By: #### 5 7021-8 ####[facility] LABORATORYCLIA [id number] [place] [address] [place] Platelets Estimate (Bld) [#/Vol] Increased Normal [facility] Comment on above: Order Comment: Speci men Type: BLOOD SPECIMENOrdering Facility: [facility] Address: [address] [place] [address] Performed By: #### 5 7021-8 ####[facility] LABORATORYCLIA [id number] [place] [address] [place] RBC (Bld) [#/Vol] 3.04 10*6/uL Low 4.20-6.00 [facility] Comment on above: Order Comment: Speci men Type: BLOOD SPECIMENOrdering Facility: [facility] Address: [address] [place] [address] Performed By: #### 5 7021-8 ####[facility]ORATORYCLIA [id number] [place] [address] [place] RED CELL MORPH Reviewed: see result s of individual morphologies Normal [facility] Comment on above: Order Comment: Speci men Type: BLOOD SPECIMENOrdering Facility: [facility] Address: [address] [place] [address] Performed By: #### 5 7021-8 ####[facility]ORATORYCLIA [id number] [place] [address] [place] WBC (Bld) [#/Vol] 12.46 10*3/uL High 3.70-11.00 [facility] Comment on above: Order Comment: Speci men Type: BLOOD SPECIMENOrdering Facility: [facility] Address: [address] [place] [address] Performed By: #### 5 7021-8 ####[facility] LABORATORYCLIA [id number] [place] [address] [place] WBC Left Shift Ql (Bld) Present Normal [facility] Comment on above: Order Comment: Speci men Type: BLOOD SPECIMENOrdering Facility: [facility] Address: [address] [place] [address] Performed By: #### 5 7021-8 ####[facility] LABORATORYCLIA [id number] [place] [address] [place] CBC panel Auto (Bld)on 08-03 Erythrocyte distribution width (RBC) [Ratio] 22.1 % High 11.5-15.0 [facility] Comment on above: Order Comment: Speci men Type: BLOOD SPECIMENOrdering Facility: [facility] Address: [address] [place] [address] Performed By: #### 5 8410-2 ####[facility] LABORATORYCLIA [id number] [place] [address] [place] Hematocrit (Bld) [Volume fraction] 28.7 % Low 39.0-51.0 [facility] Comment on above: Order Comment: Speci men Type: BLOOD SPECIMENOrdering Facility: [facility] Address: [address] [place] [address] Performed By: #### 5 8410-2 ####[facility] LABORATORYCLIA [id number] [place] [address] [place] Hemoglobin (Bld) [Mass/Vol] 8.6 g/dL Low 13.0-17.0 [facility] Comment on above: Order Comment: Speci men Type: BLOOD SPECIMENOrdering Facility: [facility] Address: [address] [place] [address] Performed By: #### 5 8410-2 ####[facility] LABORATORYCLIA [id number] [place] [address] [place] MCH (RBC) [Entitic mass] 24.6 pg Low 26.0-34.0 [facility] Comment on above: Order Comment: Speci men Type: BLOOD SPECIMENOrdering Facility: [facility] Address: [address] [place] [address] Performed By: #### 5 8410-2 ####[facility] LABORATORYCLIA [id number] [place] [address] [place] MCHC (RBC) [Mass/Vol] 30.0 g/dL Low 30.5-36.0 [facility] Comment on above: Order Comment: Speci men Type: BLOOD SPECIMENOrdering Facility: [facility] Address: [address] [place] [address] Performed By: #### 5 8410-2 ####[facility] LABORATORYCLIA [id number] [place] [address] [place] MCV (RBC) [Entitic vol] 82.0 fL Normal 80.0-100.0 [facility] Comment on above: Order Comment: Speci men Type: BLOOD SPECIMENOrdering Facility: [facility] Address: [address] [place] [address] Performed By: #### 5 8410-2 ####[facility] LABORATORYCLIA [id number] [address] [place] Nucleated RBC (Bld) [#/Vol] 10*3/uL Normal <0.01 [facility] Comment on above: Order Comment: Speci men Type: BLOOD SPECIMENOrdering Facility: [facility] Address: [address] [place] [address] Performed By: #### 5 8410-2 ####[facility] LABORATORYCLIA [id number] [place] [address] [place] Platelet mean volume (Bld) [Entitic vol] 8.5 fL Low 9.0-12.7 [facility] Comment on above: Order Comment: Speci men Type: BLOOD SPECIMENOrdering Facility: [facility] Address: [address] [place] [address] Performed By: #### 5 8410-2 ####[facility] LABORATORYCLIA [id number] [place] [address] [place] Platelets (Bld) [#/Vol] 432 10*3/uL High 150-400 [facility] Comment on above: Order Comment: Speci men Type: BLOOD SPECIMENOrdering Facility: [facility] Address: [address] [place] [address] Performed By: #### 5 8410-2 ####[facility] LABORATORYCLIA [id number] [place] [address] [place] RBC (Bld) [#/Vol] 3.50 10*6/uL Low 4.20-6.00 [facility] Comment on above: Order Comment: Speci men Type: BLOOD SPECIMENOrdering Facility: [facility] Address: [address] [place] [address] Performed By: #### 5 8410-2 ####[facility] LABORATORYCLIA [id number] [place] [address] [place] WBC (Bld) [#/Vol] 12.41 10*3/uL High 3.70-11.00 [facility] Comment on above: Order Comment: Speci men Type: BLOOD SPECIMENOrdering Facility: [facility] Address: [address] [place] [address] Performed By: #### 5 8410-2 ####[facility] LABORATORYCLIA [id number] [place] [address] [place] CONSULTon 08-04-2023 CONSULT Normal [facility] CONSULT PROGon 08-04-2023 CONSULT PROG Normal [facility] CONSULT PROG Normal [facility] CONSULT PROG Normal [facility] CONSULT PROG Normal [facility] CONSULT PROG Normal [facility] Comprehensive metabolic 2000 panelon 08-04-2023 Albumin [Mass/Vol] 2.8 g/dL Low 3.9-4.9 [facility] Comment on above: Order Comment: Speci men Type: BLOOD SPECIMENOrdering Facility: [facility] Address: [address] [place] [address] Performed By: #### 2 4323-8 ####[facility] LABORATORYCLIA [id number] [place] [address] [place] ALP [Catalytic activity/Vol] 109 U/L Normal 38-113 [facility] Comment on above: Order Comment: Speci men Type: BLOOD SPECIMENOrdering Facility: [facility] Address: [address] [place] [address] Performed By: #### 2 4323-8 ####[facility] LABORATORYCLIA [id number] [place] [address] [place] ALT [Catalytic activity/Vol] 12 U/L Normal 10-54 [facility] Comment on above: Order Comment: Speci men Type: BLOOD SPECIMENOrdering Facility: [facility] Address: [address] [place] [address] Performed By: #### 2 4323-8 ####[facility] LABORATORYCLIA [id number] [place] [address] [place] Anion gap [Moles/Vol] 11 mmol/L Normal 9-18 [facility] Comment on above: Order Comment: Speci men Type: BLOOD SPECIMENOrdering Facility: [facility] Address: [address] [place] [address] Performed By: #### 2 4323-8 ####[facility] LABORATORYCLIA [id number] [place] [address] [place] AST [Catalytic activity/Vol] 12 U/L Low 14-40 [facility] Comment on above: Order Comment: Speci men Type: BLOOD SPECIMENOrdering Facility: [facility] Address: [address] [place] [address] Performed By: #### 2 4323-8 ####[facility] LABORATORYCLIA [id number] [place] [address] [place] Bilirubin [Mass/Vol] 0.5 mg/dL Normal 0.2-1.3 [facility] Comment on above: Order Comment: Speci men Type: BLOOD SPECIMENOrdering Facility: [facility] Address: [address] [place] [address] Performed By: #### 2 4323-8 ####[facility] LABORATORYCLIA [id number] [place] [address] [place] Calcium [Mass/Vol] 8.0 mg/dL Low 8.5-10.2 [facility] Comment on above: Order Comment: Speci men Type: BLOOD SPECIMENOrdering Facility: [facility] Address: [address] [place] [address] Performed By: #### 2 4323-8 ####[facility] LABORATORYCLIA [id number] [place] [address] [place] Chloride [Moles/Vol] 100 mmol/L Normal 97-105 [facility] Comment on above: Order Comment: Speci men Type: BLOOD SPECIMENOrdering Facility: [facility] Address: [address] [place] [address] Performed By: #### 2 4323-8 ####[facility] LABORATORYCLIA [id number] [place] [address] [place] CO2 [Moles/Vol] 26 mmol/L Normal 22-30 [facility] Comment on above: Order Comment: Speci men Type: BLOOD SPECIMENOrdering Facility: [facility] Address: [address] [place] [address] Performed By: #### 2 4323-8 ####[facility] LABORATORYCLIA [id number] [place] [address] [place] Creatinine [Mass/Vol] 0.44 mg/dL Low 0.73-1.22 [facility] Comment on above: Order Comment: Speci men Type: BLOOD SPECIMENOrdering Facility: [facility] Address: [address] [place] [address] Performed By: #### 2 4323-8 ####[facility] LABORATORYCLIA [id number] [place] [address] [place] Creatinine and Glomerular filtration rate.predicted panel (S/P/Bld) 124 mL/min/1.73m??? Normal >=60 [facility] Comment on above: Order Comment: Doroteo zavala Type: BLOOD SPECIMENOrdering Facility: [facility] Address: [address] [place] [address] Result Comment: [facility] Glomerular Filtration Rate (eGFR) is calculated using the 2020 CKD-EPI creatinine equation. This equation utilizes serum creatinine, sex, and age as parameters. The creatinine assay has traceable calibration to isotope dilution-mass spectrometry. Refer to KDIGO guidelines for clinical interpretation. In patients with unstable renal function, e.g. those with acute kidney injury, the eGFR may not accurately reflect actual GFR. Performed By: #### 2 4323-8 ####[facility] LABORATORYCLIA [id number] [place] [address] [place] Glucose [Mass/Vol] 119 mg/dL High 74-99 [facility] Comment on above: Order Comment: Doroteo zavala Type: BLOOD SPECIMENOrdering Facility: [facility] Address: [address] [place] [address] Result Comment: The [place] [employer] (ADA) provides guidance for cutoff values for fasting glucose and random glucose. The ADA defines fasting as no caloric intake for at least 8 hours. Fasting plasma glucose results between 100 to 125 mg/dL indicate increased risk for diabetes (prediabetes).Fasting plasma glucose results greater than or equal to 126 mg/dL meet the criteria for diagnosis of diabetes. In the absence of unequivocal hyperglycemia, results should be confirmed by repeat testing. In a patient with classic symptoms of hyperglycemia or hyperglycemic crisis, random plasma glucose results greater than or equal to 200 mg/dL meet the criteria for diagnosis of diabetes.Reference: Standards of Medical Care in Diabetes 2016, [place] [employer]. Diabetes Care. 2016.39(Suppl 1). Performed By: #### 2 4323-8 ####[facility] LABORATORYCLIA [id number] [place] [id number] [place] Potassium [Moles/Vol] 3.8 mmol/L Normal 3.7-5.1 [facility] Comment on above: Order Comment: Speci men Type: BLOOD SPECIMENOrdering Facility: [facility] Address: [address] [place] [address] Performed By: #### 2 4323-8 ####[facility] LABORATORYCLIA [id number] [place] [address] [place] Protein [Mass/Vol] 6.0 g/dL Low 6.3-8.0 [facility] Comment on above: Order Comment: Speci men Type: BLOOD SPECIMENOrdering Facility: [facility] Address: [address] [place] [address] Performed By: #### 2 4323-8 ####[facility] LABORATORYCLIA [id number] [place] [address] [place] Sodium [Moles/Vol] 137 mmol/L Normal 136-144 [facility] Comment on above: Order Comment: Speci men Type: BLOOD SPECIMENOrdering Facility: [facility] Address: [address] [place] [address] Performed By: #### 2 4323-8 ####[facility] LABORATORYCLIA [id number] [place] [address] [place] Urea nitrogen [Mass/Vol] 4 mg/dL Low 9-24 [facility] Comment on above: Order Comment: Speci men Type: BLOOD SPECIMENOrdering Facility: [facility] Address: [address] [place] [address] Performed By: #### 2 4323-8 ####[facility] LABORATORYCLIA [id number] [place] [address] [place] NURSING PROGon 08-04-2023 NURSING PROG Normal [facility] Vancomycin [place] SerPl-mCncon 08-04-2023 Vancomycin random [Mass/Vol] 17.1 ug/mL Normal 10.0-20.0 [facility] Comment on above: Order Comment: Speci men Type: BLOOD SPECIMENOrdering Facility: [facility] Address: [address] [place], [place] [address] Result Comment: Refe rence ranges and high/low indicator flags are provided as general guidelines only. The treating physician must determine appropriate target levels/dosing based on the specific clinical situation. Performed By: #### 4 091-5 ####[facility] LABORATORYCLIA [id number] [place] [address] [place] ALLIED HEALTHon 08-03-2023 ALLIED HEALTH Normal [facility] ALLIED HEALTH Normal [facility] ANES POSTPROC EVALon 024 ANES POSTPROC EVAL Normal [facility] ANES PRE-OPon 08-03-2023 ANES PRE-OP Normal [facility] BRIEF OP NOTon 08-03-2023 BRIEF OP NOT [facility] CASE MANAGEMon 08-03-2023 CASE MANAGEM [facility] CBC panel Auto (Bld)on 08-02 Erythrocyte distribution width (RBC) [Ratio] 25.2 % High 11.5-15.0 [facility] Comment on above: Order Comment: Speci men Type: BLOOD SPECIMENOrdering Facility: [facility] Address: [address] [place] [address] Performed By: #### 5 8410-2 ####[facility] LABORATORYCLIA [id number] [place] [address] [place] Hematocrit (Bld) [Volume fraction] 26.3 % Low 39.0-51.0 [facility] Comment on above: Order Comment: Speci men Type: BLOOD SPECIMENOrdering Facility: [facility] Address: [address] [place] [address] Performed By: #### 5 8410-2 ####[facility] LABORATORYCLIA [id number] [place] [address] [place] Hemoglobin (Bld) [Mass/Vol] 7.6 g/dL Low 13.0-17.0 [facility] Comment on above: Order Comment: Speci men Type: BLOOD SPECIMENOrdering Facility: [facility] Address: [address] [place] [address] Performed By: #### 5 8410-2 ####[facility] LABORATORYCLIA [id number] [place] [address] [place] MCH (RBC) [Entitic mass] 23.0 pg Low 26.0-34.0 [facility] Comment on above: Order Comment: Speci men Type: BLOOD SPECIMENOrdering Facility: [facility] Address: [address] [place] [address] Performed By: #### 5 8410-2 ####[facility] LABORATORYCLIA [id number] [place] [address] [place] MCHC (RBC) [Mass/Vol] 28.9 g/dL Low 30.5-36.0 [facility] Comment on above: Order Comment: Speci men Type: BLOOD SPECIMENOrdering Facility: [facility] Address: [address] [place] [address] Performed By: #### 5 8410-2 ####[facility] LABORATORYCLIA [id number] [address] [place] MCV (RBC) [Entitic vol] 79.7 fL Low 80.0-100.0 [facility] Comment on above: Order Comment: Speci men Type: BLOOD SPECIMENOrdering Facility: [facility] Address: [address] [place] [address] Performed By: #### 5 8410-2 ####[facility] LABORATORYCLIA [id number] [place] [address] [place] Nucleated RBC (Bld) [#/Vol] 0.02 10*3/uL High <0.01 [facility] Comment on above: Order Comment: Speci men Type: BLOOD SPECIMENOrdering Facility: [facility] Address: [address] [place] [address] Performed By: #### 5 8410-2 ####[facility] LABORATORYCLIA [id number] [address] [place] Platelet mean volume (Bld) [Entitic vol] 8.4 fL Low 9.0-12.7 [facility] Comment on above: Order Comment: Speci men Type: BLOOD SPECIMENOrdering Facility: [facility] Address: [address] [id number] Performed By: #### 5 8410-2 ####[facility] LABORATORYCLIA [id number] [place] [id number] [place] Platelets (Bld) [#/Vol] 491 10*3/uL High 150-400 [facility] Comment on above: Order Comment: Speci men Type: BLOOD SPECIMENOrdering Facility: [facility] Address: [address] [place] [id number] Performed By: #### 5 8410-2 ####[facility] LABORATORYCLIA [id number] [place] [id number] [place] RBC (Bld) [#/Vol] 3.30 10*6/uL Low 4.20-6.00 [facility] Comment on above: Order Comment: Speci men Type: BLOOD SPECIMENOrdering Facility: [facility] Address: [address] [place] [address] Performed By: #### 5 8410-2 ####[facility] LABORATORYCLIA [id number] [place] [id number] [place] WBC (Bld) [#/Vol] 11.43 10*3/uL High 3.70-11.00 [facility] Comment on above: Order Comment: Speci men Type: BLOOD SPECIMENOrdering Facility: [facility] Address: [address] [place] [address] Performed By: #### 5 8410-2 ####[facility] LABORATORYCLIA [id number] [place] [id number] [place] CONSULT PROGon 08-03-2023 CONSULT PROG Normal [facility] CONSULT PROG Normal [facility] Comprehensive metabolic 2000 panelon 08-03-2023 Albumin [Mass/Vol] 2.7 g/dL Low 3.9-4.9 [facility] Comment on above: Order Comment: Speci men Type: BLOOD SPECIMENOrdering Facility: [facility] Address: [address] [place] [address] Performed By: #### 2 4323-8 ####[facility]ORATORYCLIA [id number] [place] [address] [place] ALP [Catalytic activity/Vol] 128 U/L High 38-113 [facility] Comment on above: Order Comment: Speci men Type: BLOOD SPECIMENOrdering Facility: [facility] Address: [address] [place] [address] Performed By: #### 2 4323-8 ####[facility] LABORATORYCLIA [id number] [place] [address] [place] ALT [Catalytic activity/Vol] 12 U/L Normal 10-54 [facility] Comment on above: Order Comment: Speci men Type: BLOOD SPECIMENOrdering Facility: [facility] Address: [address] [place] [address] Performed By: #### 2 4323-8 ####[facility] LABORATORYCLIA [id number] [place] [address] [place] Anion gap [Moles/Vol] 16 mmol/L Normal 9-18 [facility] Comment on above: Order Comment: Speci men Type: BLOOD SPECIMENOrdering Facility: [facility] Address: [address] [place] [address] Performed By: #### 2 4323-8 ####[facility] LABORATORYCLIA [id number] [place] [address] [place] AST [Catalytic activity/Vol] 14 U/L Normal 14-40 [facility] Comment on above: Order Comment: Speci men Type: BLOOD SPECIMENOrdering Facility: [facility] Address: [address] [place] [address] Performed By: #### 2 4323-8 ####[facility] LABORATORYCLIA [id number] [place] [address] [place] Bilirubin [Mass/Vol] 0.2 mg/dL Normal 0.2-1.3 [facility] Comment on above: Order Comment: Speci men Type: BLOOD SPECIMENOrdering Facility: [facility] Address: [address] [place] [address] Performed By: #### 2 4323-8 ####[facility]ORATORYCLIA [id number] [place] [id number] [place] Calcium [Mass/Vol] 8.1 mg/dL Low 8.5-10.2 [facility] Comment on above: Order Comment: Speci men Type: BLOOD SPECIMENOrdering Facility: [facility] Address: [address] [place] [address] Performed By: #### 2 4323-8 ####[facility] LABORATORYCLIA [id number] [place] [address] [place] Chloride [Moles/Vol] 101 mmol/L Normal 97-105 [facility] Comment on above: Order Comment: Speci men Type: BLOOD SPECIMENOrdering Facility: [facility] Address: [address] [place] [address] Performed By: #### 2 4323-8 ####[facility] LABORATORYCLIA [id number] [place] [address] [place] CO2 [Moles/Vol] 23 mmol/L Normal 22-30 [facility] Comment on above: Order Comment: Speci men Type: BLOOD SPECIMENOrdering Facility: [facility] Address: [address] [place] [address] Performed By: #### 2 4323-8 ####[facility] LABORATORYCLIA [id number] [place] [id number] [place] Creatinine [Mass/Vol] 0.45 mg/dL Low 0.73-1.22 [facility] Comment on above: Order Comment: Speci men Type: BLOOD SPECIMENOrdering Facility: [facility] Address: [facility] [place] [address] Performed By: #### 2 4323-8 ####[facility] LABORATORYCLIA [id number] [place] [address] [place] Creatinine and Glomerular filtration rate.predicted panel (S/P/Bld) 124 mL/min/1.73m??? Normal >=60 [facility] Comment on above: Order Comment: Doroteo zavala Type: BLOOD SPECIMENOrdering Facility: [facility] Address: [address] [place] [address] Result Comment: Lola janak Glomerular Filtration Rate (eGFR) is calculated using the 2020 CKD-EPI creatinine equation. This equation utilizes serum creatinine, sex, and age as parameters. The creatinine assay has traceable calibration to isotope dilution-mass spectrometry. Refer to KDIGO guidelines for clinical interpretation. In patients with unstable renal function, e.g. those with acute kidney injury, the eGFR may not accurately reflect actual GFR. Performed By: #### 2 4323-8 ####[facility]ORATORYCLIA [id number] [place] [address] [place] Glucose [Mass/Vol] 118 mg/dL High 74-99 [facility] Comment on above: Order Comment: Doroteo zavala Type: BLOOD SPECIMENOrdering Facility: [facility] Address: [address] [place] [address] Result Comment: The [place] [employer] (ADA) provides guidance for cutoff values for fasting glucose and random glucose. The ADA defines fasting as no caloric intake for at least 8 hours. Fasting plasma glucose results between 100 to 125 mg/dL indicate increased risk for diabetes (prediabetes).Fasting plasma glucose results greater than or equal to 126 mg/dL meet the criteria for diagnosis of diabetes. In the absence of unequivocal hyperglycemia, results should be confirmed by repeat testing. In a patient with classic symptoms of hyperglycemia or hyperglycemic crisis, random plasma glucose results greater than or equal to 200 mg/dL meet the criteria for diagnosis of diabetes.Reference: Standards of Medical Care in Diabetes 2016, [place] [employer]. Diabetes Care. 2016.39(Suppl 1). Performed By: #### 2 4323-8 ####[facility] LABORATORYCLIA [id number] [place] [id number] [place] Potassium [Moles/Vol] 4.1 mmol/L Normal 3.7-5.1 [facility] Comment on above: Order Comment: Doroteo zavala Type: BLOOD SPECIMENOrdering Facility: [facility] Address: [address] [place] [address] Performed By: #### 2 4323-8 ####[facility] LABORATORYCLIA [id number] [place] [address] [place] Protein [Mass/Vol] 6.1 g/dL Low 6.3-8.0 [facility] Comment on above: Order Comment: Speci men Type: BLOOD SPECIMENOrdering Facility: [facility] Address: [address] [place] [address] Performed By: #### 2 4323-8 ####[facility] LABORATORYCLIA [id number] [place] [address] [place] Sodium [Moles/Vol] 140 mmol/L Normal 136-144 [facility] Comment on above: Order Comment: Speci men Type: BLOOD SPECIMENOrdering Facility: [facility] Address: [address] [place] [address] Performed By: #### 2 4323-8 ####[facility] LABORATORYCLIA [id number] [place] [address] [place] Urea nitrogen [Mass/Vol] 5 mg/dL Low 9-24 [facility] Comment on above: Order Comment: Speci men Type: BLOOD SPECIMENOrdering Facility: [facility] Address: [address] [place] [address] Performed By: #### 2 4323-8 ####[facility] LABORATORYCLIA [id number] [place] [address] [place] Hematocrit Auto (Bld) [Volum e fraction]on 08-03-2023 Hematocrit (Bld) [Volume fraction] 27.2 % Low 39.0-51.0 [facility] Comment on above: Order Comment: Speci men Type: BLOOD SPECIMENOrdering Facility: [facility] Address: [address] [place] [address] Performed By: #### 4 544-3, 718-7 ####[facility] LABORATORYCLIA [id number] [place] [address] [place] Hgb Bld-mCncon 08-03-2023 Hemoglobin (Bld) [Mass/Vol] 7.7 g/dL Low 13.0-17.0 [facility] Comment on above: Order Comment: Speci men Type: BLOOD SPECIMENOrdering Facility: [facility] Address: [address] [place] [address] Performed By: #### 4 544-3, 718-7 ####[facility] LABORATORYCLIA [id number] [place] [address] [place] OPERATIVE NOon 08-03-2023 OPERATIVE NO Normal [facility] SURGICAL PATHOLOGYon 024 CASE REPORT Normal [facility] Comment on above: Order Comment: Speci men Type: TISSUE SPECIMENOrdering Facility: [facility] Address: [address] [place] [address] Result Comment: Surg ical Pathology Report Case: [id number] Provider: Bryant Lund MD Collected: 08/03/2023 01:02 PMOrdering Location: [facility] Received: 08/03/2023 01:39 PM Surgical ServicesPathologist: Shaye Cueva MDSpecimen: SOFT TISSUE, Skin and subcutaneous tissues sacral area Performed By: #### S ####[facility] LABCLIA [id number] [address] LABORATORYCLIA [id number] [place] [address] [place] CLINICAL HISTORY Normal [facility] Comment on above: Order Comment: Speci men Type: TISSUE SPECIMENOrdering Facility: [facility] Address: [address] [place] [address] Result Comment: Pre- op diagnosis:Sacral ulcer (HCC) [L98.429] Performed By: #### S ####[facility] LABCLIA [id number] [address] LABORATORYCLIA [id number] [place] [address] [place] FINAL DIAGNOSIS [facility] Comment on above: Order Comment: Speci men Type: TISSUE SPECIMENOrdering Facility: [facility] Address: [address] [place] [address] Result Comment: A. S kin and subcutaneous tissue, sacral area, excision:- Skin and subcutaneous tissue with ulceration, necrosis and acute inflammation. Performed By: #### S ####[facility] LABCLIA [id number] [address] LABORATORYCLIA [id number] [address] OF [facility] FINAL PERFORMING LAB Normal [facility] Comment on above: Order Comment: Speci men Type: TISSUE SPECIMENOrdering Facility: [facility] Address: [address] [place] [address] Result Comment: Diag nostic interpretation performed at [facility], [address] [place] [address] CLIA# [id number] Director: Bryant Mendoza M.D. Performed By: #### S ####[facility] LABCLIA [id number] [address] LABORATORYCLIA [id number] [address] GROSS DESCRIPTION A. SOFT TISSUE Normal [facility] Comment on above: Order Comment: Speci men Type: TISSUE SPECIMENOrdering Facility: [facility] Address: [address] [place] [address] Result Comment: Rece ived in formalin labeled skin and subcutaneous tissue sacral area is a 9.0 x 6.0 x 2.3 cm aggregate of numerous irregular and disrupted segments of feliciano skin and underlying dusky subcutaneous tissue. The skin and subcutaneous tissue is multifocally markedly dusky, ragged and disrupted. No discrete lesions are identified. Online Services Manager sections are submitted in one cassette.Gross examination performed at [facility], [address] [place] [address] CLIA# [id number] 08/03/23 Performed By: #### S ####[facility] LABCLIA [id number] [address] [facility] ER [id number] STATES [facility] LABORATORYCLIA [id number] [place] [address] [place] BLOOD BANK COMMENTon 024 BLOOD BANK COMMENT See Comment Normal [facility] Comment on above: Order Comment: Speci men Type: BLOOD SPECIMENOrdering Facility: [facility] Address: [address] [place] [address] Result Comment: anti body ID not required. Last Antibody ID performed on 07/30/23 Performed By: #### T SCR, [id number] ####[facility] BANKCLIA [id number] [place] [address] [place] CBC panel Auto (Bld)on 08-01 Erythrocyte distribution width (RBC) [Ratio] 24.5 % High 11.5-15.0 [facility] Comment on above: Order Comment: Speci men Type: BLOOD SPECIMENOrdering Facility: [facility] Address: [address] [place] [address] Performed By: #### 5 8410-2 ####[facility] LABORATORYCLIA [id number] [place] [address] [place] Hematocrit (Bld) [Volume fraction] 29.9 % Low 39.0-51.0 [facility] Comment on above: Order Comment: Speci men Type: BLOOD SPECIMENOrdering Facility: [facility] Address: [address] [place] [address] Performed By: #### 5 8410-2 ####[facility] LABORATORYCLIA [id number] [place] [address] [place] Hemoglobin (Bld) [Mass/Vol] 8.7 g/dL Low 13.0-17.0 [facility] Comment on above: Order Comment: Speci men Type: BLOOD SPECIMENOrdering Facility: [facility] Address: [address] [place] [address] Performed By: #### 5 8410-2 ####[facility] LABORATORYCLIA [id number] [place] [address] [place] MCH (RBC) [Entitic mass] 22.9 pg Low 26.0-34.0 [facility] Comment on above: Order Comment: Speci men Type: BLOOD SPECIMENOrdering Facility: [facility] Address: [address] [place] [address] Performed By: #### 5 8410-2 ####[facility] LABORATORYCLIA [id number] [place] [address] [place] MCHC (RBC) [Mass/Vol] 29.1 g/dL Low 30.5-36.0 [facility] Comment on above: Order Comment: Speci men Type: BLOOD SPECIMENOrdering Facility: [facility] Address: [address] [place] [address] Performed By: #### 5 8410-2 ####[facility] LABORATORYCLIA [id number] [place] [address] [place] MCV (RBC) [Entitic vol] 78.7 fL Low 80.0-100.0 [facility] Comment on above: Order Comment: Speci men Type: BLOOD SPECIMENOrdering Facility: [facility] Address: [address] [place] [address] Performed By: #### 5 8410-2 ####[facility] LABORATORYCLIA [id number] [place] [address] [place] Nucleated RBC (Bld) [#/Vol] 10*3/uL Normal <0.01 [facility] Comment on above: Order Comment: Speci men Type: BLOOD SPECIMENOrdering Facility: [facility] Address: [address] [place] [address] Performed By: #### 5 8410-2 ####[facility] LABORATORYCLIA [id number] [place] [address] [place] Platelet mean volume (Bld) [Entitic vol] 8.1 fL Low 9.0-12.7 [facility] Comment on above: Order Comment: Speci men Type: BLOOD SPECIMENOrdering Facility: [facility] Address: [address] [place] [address] Performed By: #### 5 8410-2 ####[facility] LABORATORYCLIA [id number] [place] [address] [place] Platelets (Bld) [#/Vol] 542 10*3/uL High 150-400 [facility] Comment on above: Order Comment: Speci men Type: BLOOD SPECIMENOrdering Facility: [facility] Address: [address] [place] [id number] Performed By: #### 5 8410-2 ####[facility] LABORATORYCLIA [id number] [place] [id number] [place] RBC (Bld) [#/Vol] 3.80 10*6/uL Low 4.20-6.00 [facility] Comment on above: Order Comment: Speci men Type: BLOOD SPECIMENOrdering Facility: [facility] Address: [address] [place] [address] Performed By: #### 5 8410-2 ####[facility] LABORATORYCLIA [id number] [place] [id number] [place] WBC (Bld) [#/Vol] 12.35 10*3/uL High 3.70-11.00 [facility] Comment on above: Order Comment: Speci men Type: BLOOD SPECIMENOrdering Facility: [facility] Address: [address] [place] [address] Performed By: #### 5 8410-2 ####[facility] LABORATORYCLIA [id number] [place] [id number] [place] CONSULT PROGon 08-02-2023 CONSULT PROG Normal [facility] Comprehensive metabolic 2000 panelon 08-02-2023 Albumin [Mass/Vol] 2.8 g/dL Low 3.9-4.9 [facility] Comment on above: Order Comment: Speci men Type: BLOOD SPECIMENOrdering Facility: [facility] Address: [address] [place] [address] Performed By: #### 2 4323-8 ####[facility] LABORATORYCLIA [id number] [place] [address] [place] ALP [Catalytic activity/Vol] 129 U/L High 38-113 [facility] Comment on above: Order Comment: Speci men Type: BLOOD SPECIMENOrdering Facility: [facility] Address: [address] [place] [address] Performed By: #### 2 4323-8 ####[facility] LABORATORYCLIA [id number] [place] [address] [place] ALT [Catalytic activity/Vol] 11 U/L Normal 10-54 [facility] Comment on above: Order Comment: Speci men Type: BLOOD SPECIMENOrdering Facility: [facility] Address: [address] [place] [address] Performed By: #### 2 4323-8 ####[facility] LABORATORYCLIA [id number] [place] [address] [place] Anion gap [Moles/Vol] 12 mmol/L Normal 9-18 [facility] Comment on above: Order Comment: Speci men Type: BLOOD SPECIMENOrdering Facility: [facility] Address: [address] [place] [address] Performed By: #### 2 4323-8 ####[facility] LABORATORYCLIA [id number] [place] [address] [place] AST [Catalytic activity/Vol] 12 U/L Low 14-40 [facility] Comment on above: Order Comment: Speci men Type: BLOOD SPECIMENOrdering Facility: [facility] Address: [address] [place] [address] Performed By: #### 2 4323-8 ####[facility] LABORATORYCLIA [id number] [place] [address] [place] Bilirubin [Mass/Vol] 0.2 mg/dL Normal 0.2-1.3 [facility] Comment on above: Order Comment: Speci men Type: BLOOD SPECIMENOrdering Facility: [facility] Address: [address] [place] [address] Performed By: #### 2 4323-8 ####[facility]ORATORYCLIA [id number] [place] [id number] [place] Calcium [Mass/Vol] 8.2 mg/dL Low 8.5-10.2 [facility] Comment on above: Order Comment: Speci men Type: BLOOD SPECIMENOrdering Facility: [facility] Address: [address] [place] [address] Performed By: #### 2 4323-8 ####[facility] LABORATORYCLIA [id number] [place] [address] [place] Chloride [Moles/Vol] 98 mmol/L Normal 97-105 [facility] Comment on above: Order Comment: Speci men Type: BLOOD SPECIMENOrdering Facility: [facility] Address: [address] [place] [address] Performed By: #### 2 4323-8 ####[facility] LABORATORYCLIA [id number] [place] [address] [place] CO2 [Moles/Vol] 25 mmol/L Normal 22-30 [facility] Comment on above: Order Comment: Speci men Type: BLOOD SPECIMENOrdering Facility: [facility] Address: [address] [place] [address] Performed By: #### 2 4323-8 ####[facility] LABORATORYCLIA [id number] [place] [address] [place] Creatinine [Mass/Vol] 0.44 mg/dL Low 0.73-1.22 [facility] Comment on above: Order Comment: Speci men Type: BLOOD SPECIMENOrdering Facility: [facility] Address: [address] [place] [address] Performed By: #### 2 4323-8 ####[facility] LABORATORYCLIA [id number] [place] [address] [place] Creatinine and Glomerular filtration rate.predicted panel (S/P/Bld) 124 mL/min/1.73m??? Normal >=60 [facility] Comment on above: Order Comment: Speci men Type: BLOOD SPECIMENOrdering Facility: [facility] Address: [address] [place] [address] Result Comment: [facility] Glomerular Filtration Rate (eGFR) is calculated using the 2020 CKD-EPI creatinine equation. This equation utilizes serum creatinine, sex, and age as parameters. The creatinine assay has traceable calibration to isotope dilution-mass spectrometry. Refer to KDIGO guidelines for clinical interpretation. In patients with unstable renal function, e.g. those with acute kidney injury, the eGFR may not accurately reflect actual GFR. Performed By: #### 2 4323-8 ####[facility] LABORATORYCLIA [id number] [place] [address] [place] Glucose [Mass/Vol] 137 mg/dL High 74-99 [facility] Comment on above: Order Comment: Doroteo zavala Type: BLOOD SPECIMENOrdering Facility: [facility] Address: [address] [place] [address] Result Comment: The [place] Diabetes [employer] (ADA) provides guidance for cutoff values for fasting glucose and random glucose. The ADA defines fasting as no caloric intake for at least 8 hours. Fasting plasma glucose results between 100 to 125 mg/dL indicate increased risk for diabetes (prediabetes).Fasting plasma glucose results greater than or equal to 126 mg/dL meet the criteria for diagnosis of diabetes. In the absence of unequivocal hyperglycemia, results should be confirmed by repeat testing. In a patient with classic symptoms of hyperglycemia or hyperglycemic crisis, random plasma glucose results greater than or equal to 200 mg/dL meet the criteria for diagnosis of diabetes.Reference: Standards of Medical Care in Diabetes 2016, [place] [employer]. Diabetes Care. 2016.39(Suppl 1). Performed By: #### 2 4323-8 ####[facility] LABORATORYCLIA [id number] [place] [address] [place] Potassium [Moles/Vol] 4.0 mmol/L Normal 3.7-5.1 [facility] Comment on above: Order Comment: Doroteo zavala Type: BLOOD SPECIMENOrdering Facility: [facility] Address: [address] [place] [address] Performed By: #### 2 4323-8 ####[facility] LABORATORYCLIA [id number] [place] [address] [place] Protein [Mass/Vol] 6.6 g/dL Normal 6.3-8.0 [facility] Comment on above: Order Comment: Speci lucas Type: BLOOD SPECIMENOrdering Facility: [facility] Address: [address] [place] [address] Performed By: #### 2 4323-8 ####[facility] LABORATORYCLIA [id number] [place] [address] [place] Sodium [Moles/Vol] 135 mmol/L Low 136-144 [facility] Comment on above: Order Comment: Speci men Type: BLOOD SPECIMENOrdering Facility: [facility] Address: [address] [place] [address] Performed By: #### 2 4323-8 ####[facility] LABORATORYCLIA [id number] [place] [address] [place] Urea nitrogen [Mass/Vol] 5 mg/dL Low 9-24 [facility] Comment on above: Order Comment: Speci men Type: BLOOD SPECIMENOrdering Facility: [facility] Address: [address] [place] [address] Performed By: #### 2 4323-8 ####[facility] LABORATORYCLIA [id number] [place] [address] [place] NURSING PROGon 08-02-2023 NURSING PROG Normal [facility] PT EDon 08-02-2023 PT ED Normal [facility] PT panel Coag (PPP)on 2023 INR Coag (PPP) [Relative time] 1.1 {INR} Normal 0.9-1.3 [facility] Comment on above: Order Comment: Salinai lucas Type: BLOOD SPECIMENOrdering Facility: [facility] Address: [address] [place] [address] Result Comment: Daylin min K Antagonist (VKA) Therapeutic Range: INR 2 to 3 (Target INR of 2.5)Note: For patients treated with VKA drugs, such as warfarin, the [employer] 2012 Guideline recommends a therapeutic INR range of 2 to 3 (target INR of 2.5). This recommendation includes high-risk patients with antiphospholipid syndrome with previous arterial or venous thromboembolism, current-generation mechanical or bioprosthetic aortic heart valve replacement.Note: Patients with mechanical aortic valve replacement and additional risk factors for thromboembolic events (atrial fibrillation, previous thromboembolism, LV dysfunction, hypercoagulable conditions) or an older generation mechanical AVR (i.e., ball in-Cage) or any mechanical MVR should have a INR therapeutic range of 2.5 to 3.5 (target INR of 3).Kristian GH, et al. Chest 2012, 141:7S-47SNishimura RA, et al. [facility] 2017, 70: 252-289 Performed By: #### 3 4528-0, 71263-7 ####[facility]ORATORYCLIA [id number] [place] [address] [place] PT Coag (PPP) [Time] 11.5 s Normal 9.7-13.0 [facility] Comment on above: Order Comment: Doroteo zavala Type: BLOOD SPECIMENOrdering Facility: [facility] Address: [address] [place] [address] Performed By: #### 3 4528-0, 84435-8 ####[facility] LABORATORYCLIA [id number] [place] [address] [place] TYPE + SCREENon 08-02-2023 ABO A Normal [facility] Comment on above: Order Comment: Doroteo zavala Type: BLOOD SPECIMENOrdering Facility: [facility] Address: [address] [place] [address] Performed By: #### T SCR, [id number] ####[facility] BLOOD BANKCLIA [id number] [place] [address] [place] HISTORICAL AB SCR STATUS Positive Abnormal [facility] Comment on above: Order Comment: Doroteo zavala Type: BLOOD SPECIMENOrdering Facility: [facility] Address: [address] [place] [address] Performed By: #### T SCR, [id number] ####[facility]LO[facility] BANKCLIA [id number] [place] [address] [place] Rh Nom (Bld) Positive Normal [facility] Comment on above: Order Comment: Speci men Type: BLOOD SPECIMENOrdering Facility: [facility] Address: [address] [place] [address] Performed By: #### T SCR, [id number] ####[facility] BLOOD BANKCLIA [id number] [place] [address] [place] TYPE AND SCREEN EXPIRATION 08/05/2023 23:59 Normal [facility] Comment on above: Order Comment: Speci men Type: BLOOD SPECIMENOrdering Facility: [facility] Address: [address] [place] [address] Performed By: #### T SCR, [id number] ####[facility] BLOOD BANKCLIA [id number] [place] [address] [place] aPTT PPPon 08-02-2023 aPTT Coag (PPP) [Time] 33.3 s High 23.0-32.4 [facility] Comment on above: Order Comment: Speci men Type: BLOOD SPECIMENOrdering Facility: [facility] Address: [address] [place] [address] Performed By: #### 3 4528-0, 33014-7 ####[facility] LABORATORYCLIA [id number] [place] [address] [place] CASE MGT INIT ASSESon 2023 [facility] CBC panel Auto (Bld)on 07-31 Erythrocyte distribution width (RBC) [Ratio] 23.5 % High 11.5-15.0 [facility] Comment on above: Order Comment: Speci men Type: BLOOD SPECIMENOrdering Facility: [facility] Address: [address] [place] [address] Performed By: #### 5 8410-2 ####[facility] LABORATORYCLIA [id number] [place] [address] [place] Hematocrit (Bld) [Volume fraction] 27.6 % Low 39.0-51.0 [facility] Comment on above: Order Comment: Speci men Type: BLOOD SPECIMENOrdering Facility: [facility] Address: [address] [place] [address] Performed By: #### 5 8410-2 ####[facility]ORATORYCLIA [id number] [place] [address] [place] Hemoglobin (Bld) [Mass/Vol] 7.9 g/dL Low 13.0-17.0 [facility] Comment on above: Order Comment: Speci men Type: BLOOD SPECIMENOrdering Facility: [facility] Address: [address] [place] [address] Performed By: #### 5 8410-2 ####[facility] LABORATORYCLIA [id number] [place] [address] [place] MCH (RBC) [Entitic mass] 22.4 pg Low 26.0-34.0 [facility] Comment on above: Order Comment: Speci men Type: BLOOD SPECIMENOrdering Facility: [facility] Address: [address] [place] [address] Performed By: #### 5 8410-2 ####[facility] LABORATORYCLIA [id number] [address] [place] MCHC (RBC) [Mass/Vol] 28.6 g/dL Low 30.5-36.0 [facility] Comment on above: Order Comment: Speci men Type: BLOOD SPECIMENOrdering Facility: [facility] Address: [address] [place] [address] Performed By: #### 5 8410-2 ####[facility]ORATORYCLIA [id number] [place] [address] [place] MCV (RBC) [Entitic vol] 78.2 fL Low 80.0-100.0 [facility] Comment on above: Order Comment: Speci men Type: BLOOD SPECIMENOrdering Facility: [facility] Address: [address] [place] [address] Performed By: #### 5 8410-2 ####[facility]ORATORYCLIA [id number] [place] [address] [place] Nucleated RBC (Bld) [#/Vol] 0.03 10*3/uL High <0.01 [facility] Comment on above: Order Comment: Speci men Type: BLOOD SPECIMENOrdering Facility: [facility] Address: [address] [place] [address] Performed By: #### 5 8410-2 ####[facility] LABORATORYCLIA [id number] [place] [address] [place] Platelet mean volume (Bld) [Entitic vol] 8.4 fL Low 9.0-12.7 [facility] Comment on above: Order Comment: Speci men Type: BLOOD SPECIMENOrdering Facility: [facility] Address: [address] [place] [address] Performed By: #### 5 8410-2 ####[facility] LABORATORYCLIA [id number] [place] [address] [place] Platelets (Bld) [#/Vol] 547 10*3/uL High 150-400 [facility] Comment on above: Order Comment: Speci men Type: BLOOD SPECIMENOrdering Facility: [facility] Address: [address] [place] [address] Performed By: #### 5 8410-2 ####[facility] LABORATORYCLIA [id number] [place] [address] [place] RBC (Bld) [#/Vol] 3.53 10*6/uL Low 4.20-6.00 [facility] Comment on above: Order Comment: Speci men Type: BLOOD SPECIMENOrdering Facility: [facility] Address: [address] [place] [address] Performed By: #### 5 8410-2 ####[facility] LABORATORYCLIA [id number] [place] [address] [place] WBC (Bld) [#/Vol] 11.37 10*3/uL High 3.70-11.00 [facility] Comment on above: Order Comment: Speci men Type: BLOOD SPECIMENOrdering Facility: [facility] Address: [address] [place] [address] Performed By: #### 5 8410-2 ####[facility] LABORATORYCLIA [id number] [place] [id number] [place] CONSULTon 08-01-2023 CONSULT Normal [facility] CONSULT Normal [facility] CONSULT PROGon 08-01-2023 CONSULT PROG Normal [facility] CONSULT PROG Normal [facility] CONSULT PROG Normal [facility] Comprehensive metabolic 2000 panelon 08-01-2023 Albumin [Mass/Vol] 2.5 g/dL Low 3.9-4.9 [facility] Comment on above: Order Comment: Speci men Type: BLOOD SPECIMENOrdering Facility: [facility] Address: [facility] [place] [address] Performed By: #### 2 4323-8 ####[facility] LABORATORYCLIA [id number] [place] [address] [place] ALP [Catalytic activity/Vol] 131 U/L High 38-113 [facility] Comment on above: Order Comment: Speci men Type: BLOOD SPECIMENOrdering Facility: [facility] Address: [facility] [place] [address] Performed By: #### 2 4323-8 ####[facility] LABORATORYCLIA [id number] [place] [address] [place] ALT [Catalytic activity/Vol] 9 U/L Low 10-54 [facility] Comment on above: Order Comment: Speci men Type: BLOOD SPECIMENOrdering Facility: [facility] Address: [facility] [place] [address] Performed By: #### 2 4323-8 ####[facility] LABORATORYCLIA [id number] [place] [address] [place] Anion gap [Moles/Vol] 12 mmol/L Normal 9-18 [facility] Comment on above: Order Comment: Speci men Type: BLOOD SPECIMENOrdering Facility: [facility] Address: [facility] [address] Performed By: #### 2 4323-8 ####[facility]ORATORYCLIA [id number] [place] [address] [place] AST [Catalytic activity/Vol] 11 U/L Low 14-40 [facility] Comment on above: Order Comment: Speci men Type: BLOOD SPECIMENOrdering Facility: [facility] Address: [address] [place] [address] Performed By: #### 2 4323-8 ####[facility] LABORATORYCLIA [id number] [place] [address] [place] Bilirubin [Mass/Vol] 0.3 mg/dL Normal 0.2-1.3 [facility] Comment on above: Order Comment: Speci men Type: BLOOD SPECIMENOrdering Facility: [facility] Address: [address] [place] [address] Performed By: #### 2 4323-8 ####[facility] LABORATORYCLIA [id number] [place] [address] [place] Calcium [Mass/Vol] 8.0 mg/dL Low 8.5-10.2 [facility] Comment on above: Order Comment: Speci men Type: BLOOD SPECIMENOrdering Facility: [facility] Address: [address] [place] [address] Performed By: #### 2 4323-8 ####[facility] LABORATORYCLIA [id number] [place] [address] [place] Chloride [Moles/Vol] 101 mmol/L Normal 97-105 [facility] Comment on above: Order Comment: Speci men Type: BLOOD SPECIMENOrdering Facility: [facility] Address: [address] [place] [address] Performed By: #### 2 4323-8 ####[facility] LABORATORYCLIA [id number] [place] [address] [place] CO2 [Moles/Vol] 24 mmol/L Normal 22-30 [facility] Comment on above: Order Comment: Speci men Type: BLOOD SPECIMENOrdering Facility: [facility] Address: [address] [place] [address] Performed By: #### 2 4323-8 ####[facility] LABORATORYCLIA [id number] [place] [address] [place] Creatinine [Mass/Vol] 0.46 mg/dL Low 0.73-1.22 [facility] Comment on above: Order Comment: Doroteo zavala Type: BLOOD SPECIMENOrdering Facility: [facility] Address: [address] [place] [address] Performed By: #### 2 4323-8 ####[facility] LABORATORYCLIA [id number] [place] [address] [place] Creatinine and Glomerular filtration rate.predicted panel (S/P/Bld) 123 mL/min/1.73m??? Normal >=60 [facility] Comment on above: Order Comment: Doroteo zavala Type: BLOOD SPECIMENOrdering Facility: [facility] Address: [address] [place] [address] Result Comment: [facility] Glomerular Filtration Rate (eGFR) is calculated using the 2020 CKD-EPI creatinine equation. This equation utilizes serum creatinine, sex, and age as parameters. The creatinine assay has traceable calibration to isotope dilution-mass spectrometry. Refer to KDIGO guidelines for clinical interpretation. In patients with unstable renal function, e.g. those with acute kidney injury, the eGFR may not accurately reflect actual GFR. Performed By: #### 2 4323-8 ####[facility] LABORATORYCLIA [id number] [place] [address] [place] Glucose [Mass/Vol] 122 mg/dL High 74-99 [facility] Comment on above: Order Comment: Doroteo zavala Type: BLOOD SPECIMENOrdering Facility: [facility] Address: [address] [place] [address] Result Comment: The [place] Diabetes Association (ADA) provides guidance for cutoff values for fasting glucose and random glucose. The ADA defines fasting as no caloric intake for at least 8 hours. Fasting plasma glucose results between 100 to 125 mg/dL indicate increased risk for diabetes (prediabetes).Fasting plasma glucose results greater than or equal to 126 mg/dL meet the criteria for diagnosis of diabetes. In the absence of unequivocal hyperglycemia, results should be confirmed by repeat testing. In a patient with classic symptoms of hyperglycemia or hyperglycemic crisis, random plasma glucose results greater than or equal to 200 mg/dL meet the criteria for diagnosis of diabetes.Reference: Standards of Medical Care in Diabetes 2016, [place] [employer]. Diabetes Care. 2016.39(Suppl 1). Performed By: #### 2 4323-8 ####[facility] LABORATORYCLIA [id number] [place] [address] [place] Potassium [Moles/Vol] 4.0 mmol/L Normal 3.7-5.1 [facility] Comment on above: Order Comment: Salinai lucas Type: BLOOD SPECIMENOrdering Facility: [facility] Address: [address] [place] [address] Performed By: #### 2 4323-8 ####[facility]ORATORYCLIA [id number] [place] [address] [place] Protein [Mass/Vol] 5.9 g/dL Low 6.3-8.0 [facility] Comment on above: Order Comment: Salinai lucas Type: BLOOD SPECIMENOrdering Facility: [facility] Address: [address] [place] [address] Performed By: #### 2 4323-8 ####[facility]ORATORYCLIA [id number] [place] [address] [place] Sodium [Moles/Vol] 137 mmol/L Normal 136-144 [facility] Comment on above: Order Comment: Salinai lucas Type: BLOOD SPECIMENOrdering Facility: [facility] Address: [address] [place] [address] Performed By: #### 2 4323-8 ####[facility]ORATORYCLIA [id number] [place] [address] [place] Urea nitrogen [Mass/Vol] 5 mg/dL Low 9-24 [facility] Comment on above: Order Comment: Salinai lucas Type: BLOOD SPECIMENOrdering Facility: [facility] Address: [address] [place] [address] Performed By: #### 2 4323-8 ####[facility]ORATORYCLIA [id number] [place] [address] [place] NURSING PROGon 08-01-2023 NURSING PROG Normal [facility] Vancomycin [place] SerPl-mCncon 08-01-2023 Vancomycin random [Mass/Vol] 14.5 ug/mL Normal 10.0-20.0 [facility] Comment on above: Order Comment: Speci men Type: BLOOD SPECIMENOrdering Facility: [facility] Address: [address] [place] [address] Result Comment: Refe rence ranges and high/low indicator flags are provided as general guidelines only. The treating physician must determine appropriate target levels/dosing based on the specific clinical situation. Performed By: #### 4 091-5 ####[facility] LABORATORYCLIA [id number] [place] [address] [place] ALLIED HEALTHon 07-31-2023 ALLIED HEALTH Normal [facility] Bacteria Wnd Culton 07-31-19 24 Bacteria identified Cx Nom (Wound) Abnormal [facility] Comment on above: Performed By: #### 6 462-6 ####[facility] LABCLIA [id number] [facility] [place] [address] [place] CBC panel Auto (Bld)on 07-30 Erythrocyte distribution width (RBC) [Ratio] 22.6 % High 11.5-15.0 [facility] Comment on above: Order Comment: Speci men Type: BLOOD SPECIMENOrdering Facility: [facility] Address: [address] [place] [address] Performed By: #### 5 8410-2 ####[facility] LABORATORYCLIA [id number] [place] [address] [place] Hematocrit (Bld) [Volume fraction] 26.4 % Low 39.0-51.0 [facility] Comment on above: Order Comment: Speci men Type: BLOOD SPECIMENOrdering Facility: [facility] Address: [address] [place] [address] Performed By: #### 5 8410-2 ####[facility]ORATORYCLIA [id number] [place] [address] [place] Hemoglobin (Bld) [Mass/Vol] 7.6 g/dL Low 13.0-17.0 [facility] Comment on above: Order Comment: Speci men Type: BLOOD SPECIMENOrdering Facility: [facility] Address: [address] [place] [address] Performed By: #### 5 8410-2 ####[facility] LABORATORYCLIA [id number] [place] [address] [place] MCH (RBC) [Entitic mass] 22.4 pg Low 26.0-34.0 [facility] Comment on above: Order Comment: Speci men Type: BLOOD SPECIMENOrdering Facility: [facility] Address: [address] [place] [address] Performed By: #### 5 8410-2 ####[facility] LABORATORYCLIA [id number] [place] [address] [place] MCHC (RBC) [Mass/Vol] 28.8 g/dL Low 30.5-36.0 [facility] Comment on above: Order Comment: Speci men Type: BLOOD SPECIMENOrdering Facility: [facility] Address: [address] [place] [address] Performed By: #### 5 8410-2 ####[facility] LABORATORYCLIA [id number] [place] [address] [place] MCV (RBC) [Entitic vol] 77.9 fL Low 80.0-100.0 [facility] Comment on above: Order Comment: Speci men Type: BLOOD SPECIMENOrdering Facility: [facility] Address: [address] [place] [address] Performed By: #### 5 8410-2 ####[facility] LABORATORYCLIA [id number] [place] [address] [place] Nucleated RBC (Bld) [#/Vol] 0.05 10*3/uL High <0.01 [facility] Comment on above: Order Comment: Speci men Type: BLOOD SPECIMENOrdering Facility: [facility] Address: [address] [place] [address] Performed By: #### 5 8410-2 ####[facility] LABORATORYCLIA [id number] [place] [id number] [place] Platelet mean volume (Bld) [Entitic vol] 8.3 fL Low 9.0-12.7 [facility] Comment on above: Order Comment: Speci men Type: BLOOD SPECIMENOrdering Facility: [facility] Address: [address] [place] [address] Performed By: #### 5 8410-2 ####[facility] LABORATORYCLIA [id number] [place] [address] [place] Platelets (Bld) [#/Vol] 595 10*3/uL High 150-400 [facility] Comment on above: Order Comment: Speci men Type: BLOOD SPECIMENOrdering Facility: [facility] Address: [address] [place] [address] Performed By: #### 5 8410-2 ####[facility] LABORATORYCLIA [id number] [place] [address] [place] RBC (Bld) [#/Vol] 3.39 10*6/uL Low 4.20-6.00 [facility] Comment on above: Order Comment: Speci men Type: BLOOD SPECIMENOrdering Facility: [facility] Address: [address] [place] [address] Performed By: #### 5 8410-2 ####[facility] LABORATORYCLIA [id number] [place] [id number] [place] WBC (Bld) [#/Vol] 12.40 10*3/uL High 3.70-11.00 [facility] Comment on above: Order Comment: Speci men Type: BLOOD SPECIMENOrdering Facility: [facility] Address: [address] [place] [address] Performed By: #### 5 8410-2 ####[facility] LABORATORYCLIA [id number] [address] Erythrocyte distribution width (RBC) [Ratio] 23.0 % High 11.5-15.0 [facility] Comment on above: Order Comment: Speci men Type: BLOOD SPECIMENOrdering Facility: [facility] Address: [address] [place] [address] Performed By: #### 5 8410-2 ####[facility] LABORATORYCLIA [id number] [place] [address] [place] Hematocrit (Bld) [Volume fraction] 23.7 % Low 39.0-51.0 [facility] Comment on above: Order Comment: Speci men Type: BLOOD SPECIMENOrdering Facility: [facility] Address: [address] [place] [address] Performed By: #### 5 8410-2 ####[facility] LABORATORYCLIA [id number] [address] [place] Hemoglobin (Bld) [Mass/Vol] 6.7 g/dL Low 13.0-17.0 [facility] Comment on above: Order Comment: Speci men Type: BLOOD SPECIMENOrdering Facility: [facility] Address: [address] [place] [address] Performed By: #### 5 8410-2 ####[facility] LABORATORYCLIA [id number] [place] [address] [place] MCH (RBC) [Entitic mass] 21.4 pg Low 26.0-34.0 [facility] Comment on above: Order Comment: Speci men Type: BLOOD SPECIMENOrdering Facility: [facility] Address: [address] [place] [address] Performed By: #### 5 8410-2 ####[facility] LABORATORYCLIA [id number] [address] [place] MCHC (RBC) [Mass/Vol] 28.3 g/dL Low 30.5-36.0 [facility] Comment on above: Order Comment: Speci men Type: BLOOD SPECIMENOrdering Facility: [facility] Address: [address] [place] [address] Performed By: #### 5 8410-2 ####[facility] LABORATORYCLIA [id number] [place] [address] [place] MCV (RBC) [Entitic vol] 75.7 fL Low 80.0-100.0 [facility] Comment on above: Order Comment: Speci men Type: BLOOD SPECIMENOrdering Facility: [facility] Address: [address] [place] [address] Performed By: #### 5 8410-2 ####[facility] LABORATORYCLIA [id number] [place] [address] [place] Nucleated RBC (Bld) [#/Vol] 0.03 10*3/uL High <0.01 [facility] Comment on above: Order Comment: Speci men Type: BLOOD SPECIMENOrdering Facility: [facility] Address: [address] [place] [address] Performed By: #### 5 8410-2 ####[facility] LABORATORYCLIA [id number] [place] [address] [place] Platelet mean volume (Bld) [Entitic vol] 8.5 fL Low 9.0-12.7 [facility] Comment on above: Order Comment: Speci men Type: BLOOD SPECIMENOrdering Facility: [facility] Address: [address] [place] [address] Performed By: #### 5 8410-2 ####[facility] LABORATORYCLIA [id number] [place] [address] [place] Platelets (Bld) [#/Vol] 617 10*3/uL High 150-400 [facility] Comment on above: Order Comment: Speci men Type: BLOOD SPECIMENOrdering Facility: [facility] Address: [address] [place] [address] Performed By: #### 5 8410-2 ####[facility] LABORATORYCLIA [id number] [place] [address] [place] RBC (Bld) [#/Vol] 3.13 10*6/uL Low 4.20-6.00 [facility] Comment on above: Order Comment: Speci men Type: BLOOD SPECIMENOrdering Facility: [facility] Address: [facility] [place] [address] Performed By: #### 5 8410-2 ####[facility] LABORATORYCLIA [id number] [place] [address] [place] WBC (Bld) [#/Vol] 11.92 10*3/uL High 3.70-11.00 [facility] Comment on above: Order Comment: Speci men Type: BLOOD SPECIMENOrdering Facility: [facility] Address: [address] [place] [address] Performed By: #### 5 8410-2 ####[facility] LABORATORYCLIA [id number] [place] [address] [place] CONSULTon 07-31-2023 CONSULT [facility] CON[facility]on 07-31[facility] A[facility]/PEL W IVCONon 024 CT ABD/PEL W IVCON [facility] Comprehensive metabolic 2000 panelon 07-31-2023 Albumin [Mass/Vol] 2.6 g/dL Low 3.9-4.9 [facility] Comment on above: Order Comment: Speci men Type: BLOOD SPECIMENOrdering Facility: [facility] Address: [address] [place] [address] Performed By: #### 2 4323-8 ####[facility] LABORATORYCLIA [id number] [place] [address] [place] ALP [Catalytic activity/Vol] 144 U/L High 38-113 [facility] Comment on above: Order Comment: Speci men Type: BLOOD SPECIMENOrdering Facility: [facility] Address: [address] [place] [address] Performed By: #### 2 4323-8 ####[facility] LABORATORYCLIA [id number] [place] [address] [place] ALT [Catalytic activity/Vol] 9 U/L Low 10-54 [facility] Comment on above: Order Comment: Speci men Type: BLOOD SPECIMENOrdering Facility: [facility] Address: [address] [place] [address] Performed By: #### 2 4323-8 ####[facility] LABORATORYCLIA [id number] [place] [address] [place] Anion gap [Moles/Vol] 14 mmol/L Normal 9-18 [facility] Comment on above: Order Comment: Speci men Type: BLOOD SPECIMENOrdering Facility: [facility] Address: [address] [place] [address] Performed By: #### 2 4323-8 ####[facility] LABORATORYCLIA [id number] [place] [address] [place] AST [Catalytic activity/Vol] 8 U/L Low 14-40 [facility] Comment on above: Order Comment: Speci men Type: BLOOD SPECIMENOrdering Facility: [facility] Address: [address] [place] [address] Performed By: #### 2 4323-8 ####[facility] LABORATORYCLIA [id number] [place] [address] [place] Bilirubin [Mass/Vol] 0.2 mg/dL Normal 0.2-1.3 [facility] Comment on above: Order Comment: Speci men Type: BLOOD SPECIMENOrdering Facility: [facility] Address: [address] [place] [address] Performed By: #### 2 4323-8 ####[facility] LABORATORYCLIA [id number] [place] [address] [place] Calcium [Mass/Vol] 8.0 mg/dL Low 8.5-10.2 [facility] Comment on above: Order Comment: Speci men Type: BLOOD SPECIMENOrdering Facility: [facility] Address: [address] [place] [address] Performed By: #### 2 4323-8 ####[facility] LABORATORYCLIA [id number] [place] [address] [place] Chloride [Moles/Vol] 98 mmol/L Normal 97-105 [facility] Comment on above: Order Comment: Speci men Type: BLOOD SPECIMENOrdering Facility: [facility] Address: [address] [place] [address] Performed By: #### 2 4323-8 ####[facility] LABORATORYCLIA [id number] [place] [address] [place] CO2 [Moles/Vol] 21 mmol/L Low 22-30 [facility] Comment on above: Order Comment: Speci men Type: BLOOD SPECIMENOrdering Facility: [facility] Address: [address] [place] [address] Performed By: #### 2 4323-8 ####[facility] LABORATORYCLIA [id number] [place] [address] [place] Creatinine [Mass/Vol] 0.47 mg/dL Low 0.73-1.22 [facility] Comment on above: Order Comment: Speci men Type: BLOOD SPECIMENOrdering Facility: [facility] Address: [address] [place] [address] Performed By: #### 2 4323-8 ####[facility] LABORATORYCLIA [id number] [place] [address] [place] Creatinine and Glomerular filtration rate.predicted panel (S/P/Bld) 122 mL/min/1.73m??? Normal >=60 [facility] Comment on above: Order Comment: Speci men Type: BLOOD SPECIMENOrdering Facility: [facility] Address: [address] [place] [address] Result Comment: Lola mated Glomerular Filtration Rate (eGFR) is calculated using the 2020 CKD-EPI creatinine equation. This equation utilizes serum creatinine, sex, and age as parameters. The creatinine assay has traceable calibration to isotope dilution-mass spectrometry. Refer to KDIGO guidelines for clinical interpretation. In patients with unstable renal function, e.g. those with acute kidney injury, the eGFR may not accurately reflect actual GFR. Performed By: #### 2 4323-8 ####[facility] LABORATORYCLIA [id number] [place] [address] [place] Glucose [Mass/Vol] 149 mg/dL High 74-99 [facility] Comment on above: Order Comment: Doroteo lucas Type: BLOOD SPECIMENOrdering Facility: [facility] Address: [address] [place] [address] Result Comment: The [place] Diabetes [employer] (ADA) provides guidance for cutoff values for fasting glucose and random glucose. The ADA defines fasting as no caloric intake for at least 8 hours. Fasting plasma glucose results between 100 to 125 mg/dL indicate increased risk for diabetes (prediabetes).Fasting plasma glucose results greater than or equal to 126 mg/dL meet the criteria for diagnosis of diabetes. In the absence of unequivocal hyperglycemia, results should be confirmed by repeat testing. In a patient with classic symptoms of hyperglycemia or hyperglycemic crisis, random plasma glucose results greater than or equal to 200 mg/dL meet the criteria for diagnosis of diabetes.Reference: Standards of Medical Care in Diabetes 2016, [place] [employer]. Diabetes Care. 2016.39(Suppl 1). Performed By: #### 2 4323-8 ####[facility] LABORATORYCLIA [id number] [place] [address] [place] Potassium [Moles/Vol] 3.8 mmol/L Normal 3.7-5.1 [facility] Comment on above: Order Comment: Doroteo lucas Type: BLOOD SPECIMENOrdering Facility: [facility] Address: [address] [place] [address] Performed By: #### 2 4323-8 ####[facility] LABORATORYCLIA [id number] [place] [address] [place] Protein [Mass/Vol] 5.9 g/dL Low 6.3-8.0 [facility] Comment on above: Order Comment: Doroteo lucas Type: BLOOD SPECIMENOrdering Facility: [facility] Address: [address] [place] [address] Performed By: #### 2 4323-8 ####[facility] LABORATORYCLIA [id number] [place] [address] [place] Sodium [Moles/Vol] 133 mmol/L Low 136-144 [facility] Comment on above: Order Comment: Speci men Type: BLOOD SPECIMENOrdering Facility: [facility] Address: [address] [place] [address] Performed By: #### 2 4323-8 ####[facility] LABORATORYCLIA [id number] [place] [address] [place] Urea nitrogen [Mass/Vol] 7 mg/dL Low - [facility] Comment on above: Order Comment: Speci men Type: BLOOD SPECIMENOrdering Facility: [facility] Address: [address] [place] [address] Performed By: #### 2 4323-8 ####[facility] LABORATORYCLIA [id number] [place] [address] [place] PT panel Coag (PPP)on 2023 INR Coag (PPP) [Relative time] 1.1 {INR} Normal 0.9-1.3 [facility] Comment on above: Order Comment: Speccaryn zavala Type: BLOOD SPECIMENOrdering Facility: [facility] Address: [address] [place] [address] Result Comment: Daylin min K Antagonist (VKA) Therapeutic Range: INR 2 to 3 (Target INR of 2.5)Note: For patients treated with VKA drugs, such as warfarin, the [employer] 2012 Guideline recommends a therapeutic INR range of 2 to 3 (target INR of 2.5). This recommendation includes high-risk patients with antiphospholipid syndrome with previous arterial or venous thromboembolism, current-generation mechanical or bioprosthetic aortic heart valve replacement.Note: Patients with mechanical aortic valve replacement and additional risk factors for thromboembolic events (atrial fibrillation, previous thromboembolism, LV dysfunction, hypercoagulable conditions) or an older generation mechanical AVR (i.e., ball in-Cage) or any mechanical MVR should have a INR therapeutic range of 2.5 to 3.5 (target INR of 3).Kristian GH, et al. Chest 2012, 141:7S-47SOscar MELENDEZ et al. [facility] 2017, 70: 252-289 Performed By: #### 3 4528-0, 53576-5 ####[facility] LABORATORYCLIA [id number] [place] [address] [place] PT Coag (PPP) [Time] 11.9 s Normal 9.7-13.0 [facility] Comment on above: Order Comment: Speci men Type: BLOOD SPECIMENOrdering Facility: [facility] Address: [address] [place] [address] Performed By: #### 3 4528-0, 12419-0 ####[facility] LABORATORYCLIA [id number] [place] [address] [place] aPTT PPPon 07-31-2023 aPTT Coag (PPP) [Time] 35.2 s High 23.0-32.4 [facility] Comment on above: Order Comment: Speci men Type: BLOOD SPECIMENOrdering Facility: [facility] Address: [address] [place] [address] Performed By: #### 3 4528-0, 28536-7 ####[facility] LABORATORYCLIA [id number] [address] [place] ANTIBODY ID PATIENTon 2023 ANTIBODY IDENTIFIED Detected Normal [facility] Comment on above: Order Comment: Speci men Type: BLOOD SPECIMENOrdering Facility: [facility] Address: [address] [place] [address] Performed By: #### T SCR, [id number], %ABBY ####[facility] BLOOD BANKCLIA [id number] [place] [address] [place] BLOOD BANK COMMENTon 024 BLOOD BANK COMMENT See Comment Normal [facility] Comment on above: Order Comment: Speci men Type: BLOOD SPECIMENOrdering Facility: [facility] Address: [address] [place] [address] Result Comment: See physician's report under antibody interpretation 03/17/23 Performed By: #### T SCR, [id number], %ABBY ####[facility] BLOOD BANKCLIA [id number] [place] [address] [place] Bacteria Bld Culton 07-30-19 Bacteria identified Cx Nom (Bld) CULTURE, BLOOD: No growth 5 days Normal [facility] Comment on above: Performed By: #### 6 00-7 ####[facility] LABCLIA [id number] [place] [address] [place] Bacteria Ur Culton 4 Bacteria identified Cx Nom (U) ORGANISM ID: 1 <10,000 CFU/ml Normal urogenital beverly Normal [facility] Comment on above: Performed By: #### 6 30-4 ####[facility] LABCLIA [id number] [place] [address] [place] Bacteria Wnd Culton 07-30-19 24 Bacteria identified Cx Nom (Wound) ORGANISM ID: 1 Few enteric beverly GRAM STAIN: Rare Gram positive cocci Rare Gram positive bacilli Rare Gram negative bacilli Few Polymorphonuclear leukocytes Abnormal [facility] Comment on above: Performed By: #### 6 462-6 ####[facility] LABCLIA [id number] [place] [address] [place] Bacteria identified Cx Nom (Wound) Abnormal [facility] Comment on above: Performed By: #### 6 462-6 ####[facility] LABCLIA [id number] [place] [address] [place] CBC W Auto Differential pane l (Bld)on 07-30-2023 Basophils (Bld) [#/Vol] 0.00 10*3/uL Normal <0.11 [facility] Comment on above: Order Comment: Speci men Type: BLOOD SPECIMENOrdering Facility: [facility] Address: [address] [place] [address] Performed By: #### 5 7021-8 ####[facility] LABORATORYCLIA [id number] [place] [address] [place] Basophils/100 WBC (Bld) 0.0 % Normal [facility] Comment on above: Order Comment: Speci men Type: BLOOD SPECIMENOrdering Facility: [facility] Address: [address] [place] [address] Performed By: #### 5 7021-8 ####[facility] LABORATORYCLIA [id number] [place] [address] [place] Differential cell count method Nom (Bld) Manual Normal [facility] Comment on above: Order Comment: Speci men Type: BLOOD SPECIMENOrdering Facility: [facility] Address: [address] [place] [address] Performed By: #### 5 7021-8 ####[facility] LABORATORYCLIA [id number] [place] [address] [place] Eosinophils (Bld) [#/Vol] 0.00 10*3/uL Normal <0.46 [facility] Comment on above: Order Comment: Speci men Type: BLOOD SPECIMENOrdering Facility: [facility] Address: [address] [place] [address] Performed By: #### 5 7021-8 ####[facility] LABORATORYCLIA [id number] [place] [address] [place] Eosinophils/100 WBC (Bld) 0.0 % Normal [facility] Comment on above: Order Comment: Speci men Type: BLOOD SPECIMENOrdering Facility: [facility] Address: [address] [place] [address] Performed By: #### 5 7021-8 ####[facility] LABORATORYCLIA [id number] [place] [address] [place] Erythrocyte distribution width (RBC) [Ratio] 21.8 % High 11.5-15.0 [facility] Comment on above: Order Comment: Speci men Type: BLOOD SPECIMENOrdering Facility: [facility] Address: [address] [place] [address] Performed By: #### 5 7021-8 ####[facility] LABORATORYCLIA [id number] [place] [address] [place] Hematocrit (Bld) [Volume fraction] 23.8 % Low 39.0-51.0 [facility] Comment on above: Order Comment: Speci men Type: BLOOD SPECIMENOrdering Facility: [facility] Address: [address] [place] [address] Performed By: #### 5 7021-8 ####[facility] LABORATORYCLIA [id number] [place] [address] [place] Hemoglobin (Bld) [Mass/Vol] 6.8 g/dL Low 13.0-17.0 [facility] Comment on above: Order Comment: Speci men Type: BLOOD SPECIMENOrdering Facility: [facility] Address: [address] [place] [address] Performed By: #### 5 7021-8 ####[facility] LABORATORYCLIA [id number] [place] [address] [place] Lymphocytes (Bld) [#/Vol] 3.02 10*3/uL Normal 1.00-4.00 [facility] Comment on above: Order Comment: Speci men Type: BLOOD SPECIMENOrdering Facility: [facility] Address: [address] [place] [address] Performed By: #### 5 7021-8 ####[facility] LABORATORYCLIA [id number] [place] [address] [place] Lymphocytes/100 WBC (Bld) 18.0 % Normal [facility] Comment on above: Order Comment: Speci men Type: BLOOD SPECIMENOrdering Facility: [facility] Address: [address] [place] [address] Performed By: #### 5 7021-8 ####[facility] LABORATORYCLIA [id number] [place] [address] [place] MCH (RBC) [Entitic mass] 20.9 pg Low 26.0-34.0 [facility] Comment on above: Order Comment: Speci men Type: BLOOD SPECIMENOrdering Facility: [facility] Address: [address] [place] [address] Performed By: #### 5 7021-8 ####[facility] LABORATORYCLIA [id number] [place] [address] [place] MCHC (RBC) [Mass/Vol] 28.6 g/dL Low 30.5-36.0 [facility] Comment on above: Order Comment: Speci men Type: BLOOD SPECIMENOrdering Facility: [facility] Address: [address] [place] [address] Performed By: #### 5 7021-8 ####[facility] LABORATORYCLIA [id number] [place] [address] [place] MCV (RBC) [Entitic vol] 73.0 fL Low 80.0-100.0 [facility] Comment on above: Order Comment: Speci men Type: BLOOD SPECIMENOrdering Facility: [facility] Address: [address] [place] [address] Performed By: #### 5 7021-8 ####[facility] LABORATORYCLIA [id number] [place] [address] [place] Monocytes (Bld) [#/Vol] 1.34 10*3/uL High <0.87 [facility] Comment on above: Order Comment: Speci men Type: BLOOD SPECIMENOrdering Facility: [facility] Address: [address] [place] [address] Performed By: #### 5 7021-8 ####[facility] LABORATORYCLIA [id number] [place] [address] [place] Monocytes/100 WBC (Bld) 8.0 % Normal [facility] Comment on above: Order Comment: Speci men Type: BLOOD SPECIMENOrdering Facility: [facility] Address: [address] [place] [address] Performed By: #### 5 7021-8 ####[facility] LABORATORYCLIA [id number] [place] [address] [place] Neutrophils (Bld) [#/Vol] 12.42 10*3/uL High 1.45-7.50 [facility] Comment on above: Order Comment: Speci men Type: BLOOD SPECIMENOrdering Facility: [facility] Address: [address] [place] [address] Performed By: #### 5 7021-8 ####[facility] LABORATORYCLIA [id number] [place] [address] [place] Neutrophils/100 WBC (Bld) 74.0 % Normal [facility] Comment on above: Order Comment: Speci men Type: BLOOD SPECIMENOrdering Facility: [facility] Address: [address] [place] [address] Performed By: #### 5 7021-8 ####[facility] LABORATORYCLIA [id number] [place] [address] [place] Nucleated RBC (Bld) [#/Vol] 0.17 10*3/uL High <0.01 [facility] Comment on above: Order Comment: Speci men Type: BLOOD SPECIMENOrdering Facility: [facility] Address: [address] [place] [address] Performed By: #### 5 7021-8 ####[facility] LABORATORYCLIA [id number] [place] [address] [place] Nucleated RBC/100 WBC (Bld) [Ratio] 1.0 /100 WBC Normal [facility] Comment on above: Order Comment: Speci men Type: BLOOD SPECIMENOrdering Facility: [facility] Address: [address] [place] [address] Performed By: #### 5 7021-8 ####[facility] LABORATORYCLIA [id number] [place] [address] [place] Ovalocytes LM Ql (Bld) Few Normal [facility] Comment on above: Order Comment: Speci men Type: BLOOD SPECIMENOrdering Facility: [facility] Address: [address] [place] [address] Performed By: #### 5 7021-8 ####[facility]ORATORYCLIA [id number] [place] [address] [place] Platelet clump LM Ql (Bld) Present Normal [facility] Comment on above: Order Comment: Speci men Type: BLOOD SPECIMENOrdering Facility: [facility] Address: [address] [place] [address] Performed By: #### 5 7021-8 ####[facility] LABORATORYCLIA [id number] [place] [address] [place] Platelet mean volume (Bld) [Entitic vol] 8.7 fL Low 9.0-12.7 [facility] Comment on above: Order Comment: Speci men Type: BLOOD SPECIMENOrdering Facility: [facility] Address: [address] [place] [address] Performed By: #### 5 7021-8 ####[facility] LABORATORYCLIA [id number] [place] [address] [place] Platelets (Bld) [#/Vol] 755 10*3/uL High 150-400 [facility] Comment on above: Order Comment: Speci men Type: BLOOD SPECIMENOrdering Facility: [facility] Address: [address] [place] [address] Performed By: #### 5 7021-8 ####[facility] LABORATORYCLIA [id number] [place] [address] [place] Platelets Estimate (Bld) [#/Vol] Increased Normal [facility] Comment on above: Order Comment: Speci men Type: BLOOD SPECIMENOrdering Facility: [facility] Address: [address] [place] [address] Performed By: #### 5 7021-8 ####[facility] LABORATORYCLIA [id number] [place] [address] [place] Polychromasia LM Ql (Bld) Slight Normal [facility] Comment on above: Order Comment: Speci men Type: BLOOD SPECIMENOrdering Facility: [facility] Address: [address] [place] [address] Performed By: #### 5 7021-8 ####[facility] LABORATORYCLIA [id number] [place] [address] [place] RBC (Bld) [#/Vol] 3.26 10*6/uL Low 4.20-6.00 [facility] Comment on above: Order Comment: Speci men Type: BLOOD SPECIMENOrdering Facility: [facility] Address: [address] [place] [address] Performed By: #### 5 7021-8 ####[facility] LABORATORYCLIA [id number] [place] [address] [place] RED CELL MORPH Reviewed: see result s of individual morphologies Normal [facility] Comment on above: Order Comment: Speci men Type: BLOOD SPECIMENOrdering Facility: [facility] Address: [address] [place] [address] Performed By: #### 5 7021-8 ####[facility] LABORATORYCLIA [id number] [place] [address] [place] WBC (Bld) [#/Vol] 16.78 10*3/uL High 3.70-11.00 [facility] Comment on above: Order Comment: Speci men Type: BLOOD SPECIMENOrdering Facility: [facility] Address: [address] [place] [address] Performed By: #### 5 7021-8 ####[facility] LABORATORYCLIA [id number] [place] [address] [place] WBC Left Shift Ql (Bld) Present Normal [facility] Comment on above: Order Comment: Speci men Type: BLOOD SPECIMENOrdering Facility: [facility] Address: [address] [place] [address] Performed By: #### 5 7021-8 ####[facility] LABORATORYCLIA [id number] [place] [id number] [place] CBC panel Auto (Bld)on 07-29 Erythrocyte distribution width (RBC) [Ratio] 22.9 % High 11.5-15.0 [facility] Comment on above: Order Comment: Speci men Type: BLOOD SPECIMENOrdering Facility: [facility] Address: [address] [place] [address] Performed By: #### 5 8410-2 ####[facility] LABORATORYCLIA [id number] [place] [address] [place] Hematocrit (Bld) [Volume fraction] 23.6 % Low 39.0-51.0 [facility] Comment on above: Order Comment: Speci men Type: BLOOD SPECIMENOrdering Facility: [facility] Address: [address] [place] [address] Performed By: #### 5 8410-2 ####[facility] LABORATORYCLIA [id number] [place] [address] [place] Hemoglobin (Bld) [Mass/Vol] 6.7 g/dL Low 13.0-17.0 [facility] Comment on above: Order Comment: Speci men Type: BLOOD SPECIMENOrdering Facility: [facility] Address: [address] [place] [address] Performed By: #### 5 8410-2 ####[facility]LA[facility] LABORATORYCLIA [id number] [place] [address] [place] MCH (RBC) [Entitic mass] 21.5 pg Low 26.0-34.0 [facility] Comment on above: Order Comment: Speci men Type: BLOOD SPECIMENOrdering Facility: [facility] Address: [address] [place] [address] Performed By: #### 5 8410-2 ####[facility]LA[facility] LABORATORYCLIA [id number] [place] [address] [place] MCHC (RBC) [Mass/Vol] 28.4 g/dL Low 30.5-36.0 [facility] Comment on above: Order Comment: Speci men Type: BLOOD SPECIMENOrdering Facility: [facility] Address: [address] [place] [address] Performed By: #### 5 8410-2 ####[facility] LABORATORYCLIA [id number] [place] [address] [place] MCV (RBC) [Entitic vol] 75.9 fL Low 80.0-100.0 [facility] Comment on above: Order Comment: Speci men Type: BLOOD SPECIMENOrdering Facility: [facility] Address: [address] [place] [address] Performed By: #### 5 8410-2 ####[facility] LABORATORYCLIA [id number] [place] [address] [place] Nucleated RBC (Bld) [#/Vol] 0.07 10*3/uL High <0.01 [facility] Comment on above: Order Comment: Speci men Type: BLOOD SPECIMENOrdering Facility: [facility] Address: [address] [place] [address] Performed By: #### 5 8410-2 ####[facility] LABORATORYCLIA [id number] [place] [address] [place] Platelet mean volume (Bld) [Entitic vol] 8.4 fL Low 9.0-12.7 [facility] Comment on above: Order Comment: Speci men Type: BLOOD SPECIMENOrdering Facility: [facility] Address: [address] [place] [address] Performed By: #### 5 8410-2 ####[facility] LABORATORYCLIA [id number] [place] [address] [place] Platelets (Bld) [#/Vol] 651 10*3/uL High 150-400 [facility] Comment on above: Order Comment: Speci men Type: BLOOD SPECIMENOrdering Facility: [facility] Address: [address] [place] [address] Performed By: #### 5 8410-2 ####[facility] LABORATORYCLIA [id number] [place] [address] [place] RBC (Bld) [#/Vol] 3.11 10*6/uL Low 4.20-6.00 [facility] Comment on above: Order Comment: Speci men Type: BLOOD SPECIMENOrdering Facility: [facility] Address: [address] [place] [address] Performed By: #### 5 8410-2 ####[facility] LABORATORYCLIA [id number] [place] [address] [place] WBC (Bld) [#/Vol] 14.49 10*3/uL High 3.70-11.00 [facility] Comment on above: Order Comment: Speci men Type: BLOOD SPECIMENOrdering Facility: [facility] Address: [address] [place] [address] Performed By: #### 5 8410-2 ####[facility] LABORATORYCLIA [id number] [place] [address] [place] CONSULTon 07-30-2023 CONSULT Normal [facility] CONSULT Normal [facility] CONSULT Normal [facility] CONSULT PROGon 07-30-2023 CONSULT PROG Normal [facility] Comprehensive metabolic 2000 panelon 07-30-2023 Albumin [Mass/Vol] 2.7 g/dL Low 3.9-4.9 [facility] Comment on above: Order Comment: Speci men Type: BLOOD SPECIMENOrdering Facility: [facility] Address: [address] [place] [address] Performed By: #### 2 4323-8, LIPNF, 14908-6 ####[facility] LABORATORYCLIA [id number] [place] [address] [place] ALP [Catalytic activity/Vol] 181 U/L High 38-113 [facility] Comment on above: Order Comment: Speci men Type: BLOOD SPECIMENOrdering Facility: [facility] Address: [address] [place] [address] Performed By: #### 2 4323-8, LIPNF, 98927-2 ####[facility] LABORATORYCLIA [id number] [place] [address] [place] ALT [Catalytic activity/Vol] 10 U/L Normal 10-54 [facility] Comment on above: Order Comment: Speci men Type: BLOOD SPECIMENOrdering Facility: [facility] Address: [address] [place] [address] Performed By: #### 2 4323-8, LIPNF, 31659-5 ####[facility] LABORATORYCLIA [id number] [place] [address] [place] Anion gap [Moles/Vol] 13 mmol/L Normal 9-18 [facility] Comment on above: Order Comment: Speci men Type: BLOOD SPECIMENOrdering Facility: [facility] Address: [address] [place] [address] Performed By: #### 2 4323-8, LIPNF, 05469-0 ####[facility]ORATORYCLIA [id number] [place] [id number] [place] AST [Catalytic activity/Vol] 13 U/L Low 14-40 [facility] Comment on above: Order Comment: Speci men Type: BLOOD SPECIMENOrdering Facility: [facility] Address: [address] [place] [address] Performed By: #### 2 4323-8, LIPNF, 92645-5 ####[facility]ORATORYCLIA [id number] [place] [address] [place] Bilirubin [Mass/Vol] 0.3 mg/dL Normal 0.2-1.3 [facility] Comment on above: Order Comment: Speci men Type: BLOOD SPECIMENOrdering Facility: [facility] Address: [address] [place] [address] Performed By: #### 2 4323-8, LIPNF, 39209-8 ####[facility]ORATORYCLIA [id number] [place] [address] [place] Calcium [Mass/Vol] 8.1 mg/dL Low 8.5-10.2 [facility] Comment on above: Order Comment: Speci men Type: BLOOD SPECIMENOrdering Facility: [facility] Address: [address] [place] [address] Performed By: #### 2 4323-8, LIPNF, 97349-2 ####[facility]ORATORYCLIA [id number] [place] [id number] [place] Chloride [Moles/Vol] 97 mmol/L Normal 97-105 [facility] Comment on above: Order Comment: Speci men Type: BLOOD SPECIMENOrdering Facility: [facility] Address: [address] [place] [address] Performed By: #### 2 4323-8, LIPNF, 16234-0 ####[facility]ORATORYCLIA [id number] [place] [address] [place] CO2 [Moles/Vol] 21 mmol/L Low 22-30 [facility] Comment on above: Order Comment: Doroteo zavala Type: BLOOD SPECIMENOrdering Facility: [facility] Address: [address] [place] [address] Performed By: #### 2 4323-8, LIPBO, 45118-4 ####[facility] LABORATORYCLIA [id number] [place] [address] [place] Creatinine [Mass/Vol] 0.44 mg/dL Low 0.73-1.22 [facility] Comment on above: Order Comment: Doroteo zavala Type: BLOOD SPECIMENOrdering Facility: [facility] Address: [address] [place] [address] Performed By: #### 2 4323-8, LIPBO, 55778-2 ####[facility] LABORATORYIA [id number] [place] [address] [place] Creatinine and Glomerular filtration rate.predicted panel (S/P/Bld) 124 mL/min/1.73m??? Normal >=60 [facility] Comment on above: Order Comment: Doroteo zavala Type: BLOOD SPECIMENOrdering Facility: [facility] Address: [address] [place] [address] Result Comment: Lola mated Glomerular Filtration Rate (eGFR) is calculated using the 2020 CKD-EPI creatinine equation. This equation utilizes serum creatinine, sex, and age as parameters. The creatinine assay has traceable calibration to isotope dilution-mass spectrometry. Refer to KDIGO guidelines for clinical interpretation. In patients with unstable renal function, e.g. those with acute kidney injury, the eGFR may not accurately reflect actual GFR. Performed By: #### 2 4323-8, LIPBO, 35251-7 ####[facility] LABORATORYCLIA [id number] [place] [address] [place] Glucose [Mass/Vol] 126 mg/dL High 74-99 [facility] Comment on above: Order Comment: Doroteo zavala Type: BLOOD SPECIMENOrdering Facility: [facility] Address: [address] [place] [id number] Result Comment: The [place] Diabetes Association (ADA) provides guidance for cutoff values for fasting glucose and random glucose. The ADA defines fasting as no caloric intake for at least 8 hours. Fasting plasma glucose results between 100 to 125 mg/dL indicate increased risk for diabetes (prediabetes).Fasting plasma glucose results greater than or equal to 126 mg/dL meet the criteria for diagnosis of diabetes. In the absence of unequivocal hyperglycemia, results should be confirmed by repeat testing. In a patient with classic symptoms of hyperglycemia or hyperglycemic crisis, random plasma glucose results greater than or equal to 200 mg/dL meet the criteria for diagnosis of diabetes.Reference: Standards of Medical Care in Diabetes 2016, [place] Diabetes Association. Diabetes Care. 2016.39(Suppl 1). Performed By: #### 2 4323-8, MAGGIE, ####[facility] LABORATORYCLIA [id number] [place] [address] [place] Potassium [Moles/Vol] 4.0 mmol/L Normal 3.7-5.1 [facility] Comment on above: Order Comment: Speci men Type: BLOOD SPECIMENOrdering Facility: [facility] Address: [address] [place] [address] Performed By: #### 2 4323-8, LIPBO, ####[facility]CREST LABORATORYCLIA [id number] [place] [address] [place] Protein [Mass/Vol] 6.4 g/dL Normal 6.3-8.0 [facility] Comment on above: Order Comment: Speci men Type: BLOOD SPECIMENOrdering Facility: [facility] Address: [address] [place] [address] Performed By: #### 2 4323-8, LIPNF, ####[facility]armaCREST LABORATORYCLIA [id number] [place] [address] [place] Sodium [Moles/Vol] 131 mmol/L Low 136-144 [facility] Comment on above: Order Comment: Speci men Type: BLOOD SPECIMENOrdering Facility: [facility] Address: [address] [place] [address] Performed By: #### 2 4323-8, LIPNF, 03344-6 ####[facility] LABORATORYCLIA [id number] [place] [address] [place] Urea nitrogen [Mass/Vol] 9 mg/dL Normal 9- [facility] Comment on above: Order Comment: Speci men Type: BLOOD SPECIMENOrdering Facility: [facility] Address: [address] [place] [address] Performed By: #### 2 4323-8, LIPNF, 62818-4 ####[facility] LABORATORYCLIA [id number] [place] [id number] [place] ECG COMPLETEon 07-30-2023 ECG COMPLETE Normal [facility] HISTORY PHYSICALon HISTORY PHYSICAL Normal [facility] HISTORY PHYSICAL Normal [facility] HbA1c (Bld)on 07-30-2023 Average glucose Estimated from glycated hemoglobin (Bld) [Mass/Vol] 169 mg/dL Normal [facility] Comment on above: Order Comment: Doroteo zavala Type: BLOOD SPECIMENOrdering Facility: [facility] Address: [address] [place] [address] Result Comment: eAG: (Estimated average glucose) is a calculated value from HgbA1c and is guest services representative of the average blood glucose level in the last 2-3 month period. Performed By: #### 5 5454-3 ####[facility] LABCLIA [id number] [facility] [id number], [place] [address] [place] HbA1c (Bld) [Mass fraction] 7.5 % High 4.3-5.6 [facility] Comment on above: Order Comment: Doroteo [facility] Type: BLOOD SPECIMENOrdering Facility: [facility] Address: [address] [place] [address] Result Comment: Amer [place] Diabetes Association guidelines indicate that patients with HgbA1c in the range 5.7-6.4% are at increased risk for development of diabetes, and intervention by lifestyle modification may be beneficial. HgbA1c greater or equal to 6.5% is considered diagnostic of diabetes. Performed By: #### 5 5454-3 ####[facility] LABCLIA [id number] [facility] [address], [place] [address] [place] LIPID PANEL, NONFASTINGon Cholesterol [Mass/Vol] 83 mg/dL Normal <200 [facility] Comment on above: Order Comment: Speci men Type: BLOOD SPECIMENOrdering Facility: [facility] Address: [address] [place] [address] Result Comment: <200 mg/dL, Desirable 200-239 mg/dL, Borderline high>239 mg/dL, High Performed By: #### 2 4323-8, LIPNF, 90405-6 ####[facility]ORATORYCLIA [id number] [place] [address] [place] HDL CHOLESTEROL, NF 19 mg/dL Low >39 [facility] Comment on above: Order Comment: Speci men Type: BLOOD SPECIMENOrdering Facility: [facility] Address: [address] [place] [address] Result Comment: 40-5 9 mg/dL, Acceptable>59 mg/dL, High: Negative risk factor for coronary heart disease<40 mg/dL, Low: Positive risk factor for coronary heart disease Performed By: #### 2 4323-8, LIPNF, ####[facility]ORATORYCLIA [id number] [address] STATES [facility] LDL CHOLESTEROL, NF 27 mg/dL Normal <100 [facility] Comment on above: Order Comment: Speci men Type: BLOOD SPECIMENOrdering Facility: [facility] Address: [address] [place] [address] Result Comment: <100 mg/dL, Optimal 100-129 mg/dL, Near optimal/above optimal 130-159 mg/dL, Borderline high 160-189 mg/dL, High>189 mg/dL, Very highSecondary prevention optimal LDL Cholesterol levels are recommended to be < 70 mg/dL Performed By: #### 2 4323-8, LIPNF, 79846-1 ####[facility]ORATORYCLIA [id number] [address] [place] LDL/HDL RATIO, NF 1.42 mg/dL Normal <2.54 [facility] Comment on above: Order Comment: Speci men Type: BLOOD SPECIMENOrdering Facility: [facility] Address: [address] [place] [address] Result Comment: Williamse armin:1. National Cholesterol Education Program ATP III Guideline At-A-Glance Quick Desk Reference: National Heart, Lung, and Blood [place]. National Institutes of Health. 2001: NIH Publication No. 01-3305.2. An International Atherosclerosis Society position paper: global recommendations for the management of dyslipidemia: executive summary, Atherosclerosis. 2014: 232(2):410-413. Performed By: #### 2 4323-8, LIPBO, ####[facility]ORATORYCLIA [id number] [address] STATES [facility] NON HDL CHOL, NF 64 mg/dL Normal <130 [facility] Comment on above: Order Comment: Speci men Type: BLOOD SPECIMENOrdering Facility: [facility] Address: [address] [place] [address] Result Comment: <130 mg/dL, Optimal 130-159 mg/dL, Near optimal/above optimal 160-189 mg/dL, Borderline high 190-219 mg/dL, High>219 mg/dL, Very highSecondary prevention optimal non HDL Cholesterol levels are recommended to be <100 mg/dL Performed By: #### 2 4323-8, LIPNF, 27968-6 ####[facility]ORATORYCLIA [id number] [place] [address] [place] T CHOL/HDL RATIO NF 4.37 mg/dL Normal <5.10 [facility] Comment on above: Order Comment: Speci men Type: BLOOD SPECIMENOrdering Facility: [facility] Address: [address] [place] [address] Performed By: #### 2 4323-8, LIPNF, 72557-8 ####[facility]ORATORYCLIA [id number] [place] [address] [place] TRIGLYCERIDES, NF 186 mg/dL High <150 [facility] Comment on above: Order Comment: Speci men Type: BLOOD SPECIMENOrdering Facility: [facility] Address: [address] [place] [address] Result Comment: <150 mg/dL, Normal 150-199 mg/dL, Borderline high 200-499 mg/dL, High>499 mg/dL, Very high Performed By: #### 2 4323-8, LIPNF, 89065-9 ####[facility]ORATORYCLIA [id number] [place] [address] [place] VLDL CHOLESTEROL, NF 37 mg/dL High <30 [facility] Comment on above: Order Comment: Speci men Type: BLOOD SPECIMENOrdering Facility: [facility] Address: [address] [place] [address] Performed By: #### 2 4323-8, LIPNF, 81746-1 ####[facility] LABORATORYCLIA [id number] [place] [address] [place] Magnesium SerPl-mCncon 07-29 Magnesium [Mass/Vol] 1.7 mg/dL Normal 1.7-2.3 [facility] Comment on above: Order Comment: Speci men Type: BLOOD SPECIMENOrdering Facility: [facility] Address: [address] [place] [address] Performed By: #### 2 4323-8, LIPNF, 10665-9 ####[facility] LABORATORYCLIA [id number] [place] [address] [place] NURSING PROGon 07-30-2023 NURSING PROG [facility] SEPSIS LACTATEon 07-30-2023 Lactate [Moles/Vol] 1.4 mmol/L Normal 0.5-2.0 [facility] Comment on above: Order Comment: Speci men Type: BLOOD SPECIMENOrdering Facility: [facility] Address: [address] [place] [address] Performed By: #### S LACT ####[facility] LABORATORYCLIA [id number] [place] [address] [place] TYPE + SCREENon 03-16-2024 ABO A [facility] Comment on above: Order Comment: Speci men Type: BLOOD SPECIMENOrdering Facility: [facility] Address: [address] [place] [address] Performed By: #### T SCR, [id number], %ABBY ####[facility] BANKCLIA [id number] [place] [address] [place] HISTORICAL AB SCR STATUS Positive Abnormal [facility] Comment on above: Order Comment: Speci men Type: BLOOD SPECIMENOrdering Facility: [facility] Address: [address] [place] [address] Performed By: #### T SCR, [id number], %ABBY ####[facility] BLOOD BANKCLIA [id number] [place] [address] [place] Rh Nom (Bld) Positive Normal [facility] Comment on above: Order Comment: Speci men Type: BLOOD SPECIMENOrdering Facility: [facility] Address: [address] [place] [address] Performed By: #### T SCR, [id number], %ABBY ####[facility] BLOOD BANKCLIA [id number] [place] [address] [place] TYPE AND SCREEN EXPIRATION 08/02/2023 23:59 Normal [facility] Comment on above: Order Comment: Speci men Type: BLOOD SPECIMENOrdering Facility: [facility] Address: [address] [place] [address] Performed By: #### T SCR, [id number], %ABBY ####[facility] BLOOD BANKCLIA [id number] [place] [address] [place] Urinalysis complete panel (U )on 07-30-2023 Bacteria LM.HPF (Urine sed) [#/Area] Rare Abnormal None Seen [facility] Comment on above: Order Comment: Speci men Type: URINE SPECIMENOrdering Facility: [facility] Address: [address] [place] [address] Performed By: #### 2 4356-8 ####[facility] LABORATORYCLIA [id number] [place] [address] [place] Bilirubin Ql (U) Negative Normal Negative [facility] Comment on above: Order Comment: Speci men Type: URINE SPECIMENOrdering Facility: [facility] Address: [address] [place] [address] Performed By: #### 2 4356-8 ####[facility] LABORATORYCLIA [id number] [place] [address] [place] Clarity (Unsp spec) Turbid Abnormal Clear [facility] Comment on above: Order Comment: Speci men Type: URINE SPECIMENOrdering Facility: [facility] Address: [address] [place] [address] Performed By: #### 2 4356-8 ####[facility]ORATORYCLIA [id number] [place] [address] [place] Color (U) Yellow Normal Yellow [facility] Comment on above: Order Comment: Speci men Type: URINE SPECIMENOrdering Facility: [facility] Address: [address] [place] [address] Performed By: #### 2 4356-8 ####[facility]ORATORYCLIA [id number] [place] [address] [place] Glucose Test strip (U) [Mass/Vol] Negative Normal Trace, Negative [facility] Comment on above: Order Comment: Speci men Type: URINE SPECIMENOrdering Facility: [facility] Address: [address] [place] [address] Performed By: #### 2 4356-8 ####[facility]ORATORYCLIA [id number] [place] [address] [place] Hemoglobin Ql (U) 1+ Abnormal Negative, Trace [facility] Comment on above: Order Comment: Speci men Type: URINE SPECIMENOrdering Facility: [facility] Address: [address] [place] [address] Performed By: #### 2 4356-8 ####[facility]ORATORYCLIA [id number] [place] [address] [place] Ketones Ql (U) Negative Normal Negative, Trace [facility] Comment on above: Order Comment: Speci men Type: URINE SPECIMENOrdering Facility: [facility] Address: [address] [place] [address] Performed By: #### 2 4356-8 ####[facility] LABORATORYCLIA [id number] [place] [address] [place] Leukocyte esterase Test strip Ql (U) 500 Ronda/uL Abnormal Negative, 25 Ronda/uL [facility] Comment on above: Order Comment: Speci men Type: URINE SPECIMENOrdering Facility: [facility] Address: [address] [place] [address] Performed By: #### 2 4356-8 ####[facility] LABORATORYCLIA [id number] [place] [address] [place] Nitrite Ql (U) Negative Normal Negative [facility] Comment on above: Order Comment: Speci men Type: URINE SPECIMENOrdering Facility: [facility] Address: [address] [place] [address] Performed By: #### 2 4356-8 ####[facility]ORATORYCLIA [id number] [place] [address] [place] pH (U) 6.0 [pH] Normal 5.0-8.0 [facility] Comment on above: Order Comment: Speci men Type: URINE SPECIMENOrdering Facility: [facility] Address: [address] [place] [address] Performed By: #### 2 4356-8 ####[facility] LABORATORYCLIA [id number] [place] [address] [place] Protein (U) [Mass/Vol] 1+ Abnormal Trace , Negative [facility] Comment on above: Order Comment: Speci men Type: URINE SPECIMENOrdering Facility: [facility] Address: [address] [place] [address] Performed By: #### 2 4356-8 ####[facility] LABORATORYCLIA [id number] [place] [address] [place] RBC LM.HPF (Urine sed) [#/Area] /[HPF] Abnormal 0-3 /HPF [facility] Comment on above: Order Comment: Speci men Type: URINE SPECIMENOrdering Facility: [facility] Address: [address] [place] [address] Performed By: #### 2 4356-8 ####[facility] LABORATORYCLIA [id number] [place] [address] [place] Specific gravity (U) [Rel density] 1.024 Normal 1.005-1.030 [facility] Comment on above: Order Comment: Speci men Type: URINE SPECIMENOrdering Facility: [facility] Address: [address] [place] [address] Performed By: #### 2 4356-8 ####[facility] LABORATORYCLIA [id number] [place] [address] [place] Urobilinogen Ql (U) Normal Normal Normal [facility] Comment on above: Order Comment: Speci men Type: URINE SPECIMENOrdering Facility: [facility] Address: [address] [place] [address] Performed By: #### 2 4356-8 ####[facility] LABORATORYCLIA [id number] [place] [address] [place] WBC LM.HPF (Urine sed) [#/Area] /[HPF] Abnormal 0-5 /HPF [facility] Comment on above: Order Comment: Speci men Type: URINE SPECIMENOrdering Facility: [facility] Address: [address] [place] [address] Performed By: #### 2 4356-8 ####[facility] LABORATORYCLIA [id number] [place] [address] [place] Absolute lymphocyte countOrd ered By: Tolu Sharma on 07-29-2023 Lymphocytes Auto (Unsp spec) [#/Vol] 1.11 10*3/uL 0.83-4.51 [facility] Comment on above: Previous reported re sult: 2.86 X10^3/uLEdited by: TATYANA on 07/29/23:1902 Activated partial thrombopla stin time (aPTT) in platelet poor plasma by coagulation aOrdered By: Tolu Sharma on 07-29-2023 aPTT Coag (PPP) [Time] 51.5 s 24.1-36.2 [facility] Automated lymphocyte count a s percentage of total leukocytesOrdered By: Tolu Sharma on 07-29-2023 Lymphocytes/100 WBC Auto (Unsp spec) JORDAN WORKER [facility] Comment on above: Previous reported re sult: 15.5 %Edited by: TATYANA on 07/29/23:1900 Basophil percentageOrdered B y: Tolu Sharma on 07-29-2023 Lactate [Moles/Vol] 2.3 mmol/L 0.4-2.0 [facility] Comment on above: Critical Result(s) C alled at: 22:54:07 07/29/2023 by: Debbie Alfaro to [facility]. Results read back by same. Basophil percentage 0-5 SEEN /hpf 0-5 [facility] Basophil percentage JORDAN WORKER [facility] Comment on above: Previous reported re sult: 68.6 %Edited by: TATYANA on 07/29/23:1900 Previous reported re sult: 8.0 %Edited by: TATYANA on 07/29/23:1900 Previous reported re sult: 1.4 %Edited by: TATYANA on 07/29/23:1901 Previous reported re sult: 0.6 %Edited by: TATYANA on 07/29/23:1901 Bilirubin [Mass/Vol] 0.30 mg/dL 0.20-1.00 [facility] Comment on above: For patients on eltr ombopag therapy, use of [employer] [place] TBIL is not recommended. Chloride [Moles/Vol] 99 mmol/L 98-107 [facility] Glucose [Mass/Vol] 143 mg/dL 74-106 [facility] Comment on above: Fasting Glucose resu lt greater than or equal to 126 mg/dL suggests DIABETES MELLITUS per A.D.A. criteria. Hemoglobin (Bld) [Mass/Vol] 5.9 g/dL 13.0-16.5 [facility] Comment on above: CRITICAL VALUE VERIF IED. CALLED TO ANTONIO BARNES RN [id number] Jd Gusman.RESULTS READ BACK BY SAME . Neutrophils (Bld) [#/Vol] 14.9 10*3/uL 2.0-7.7 [facility] Comment on above: Previous reported re sult: 12.7 X10^3/uLEdited by: TATYANA on 07/29/23:190 Potassium [Moles/Vol] 4.0 mmol/L 3.5-5.1 [facility] Protein [Mass/Vol] 7.1 g/dL 6.4-8.2 [facility] Sodium [Moles/Vol] 130 mmol/L 136-145 [facility] WBC (Bld) [#/Vol] 18.4 10*3/uL 4.4-11.0 [facility] Bilirubin Test strip Ql (U)O rdered By: Tolu Sharma on 07-29-2023 Bilirubin Ql (U) Negative Negative [facility] Blood band neutrophil count as percentage of total leukocytesOrdered By: Tolu Sharma on 07-29-2023 Band form neutrophils/100 WBC (Bld) 22 % 0-5 [facility] Blood basophils/100 leukocyt esOrdered By: Tolu Sharma on 07-29-2023 Basophils/100 WBC (Bld) 2 % 0-1 [facility] Blood eosinophils/100 leukoc ytesOrdered By: Tolu Sharma on 07-29-2023 Eosinophils/100 WBC (Bld) 1 % 0-5 [facility] Blood lymphocytes/100 leukoc ytesOrdered By: Tolu Sharma on 07-29-2023 Lymphocytes/100 WBC (Bld) 6 % 19-41 [facility] Blood metamyelocytes/100 ronda kocytesOrdered By: Tolu Sharma on 07-29-2023 Metamyelocytes/100 WBC (Bld) 1 % 0-1 [facility] Blood monocytes/100 leukocyt esOrdered By: Tolu Sharma on 07-29-2023 Monocytes/100 WBC (Bld) 6 % 0-10 [facility] Blood platelet adequacy dete ction by light microscopyOrdered By: Tolu Sharma on 07-29-2023 Platelets LM Ql (Bld) [employer] ADEQ [facility] [facility] Blood segmented neutrophils/ 100 leukocytesOrdered By: Tolu Sharma on 07-29-2023 Segmented neutrophils/100 WBC (Bld) 59 % 47-70 [facility] Culture, urineOrdered By: Bart Sharma on 07-29-2023 Bacteria identified Cx Nom (U) ESBL Klebsiella pneumoniae pne [facility] Bacteria identified Cx Nom (U) Pseudomonas aeruginosa [facility] Bacteria identified Cx Nom (U) ESBL Escherichia coli [facility] Determination of erythrocyte mean corpuscular volume (MCV)Ordered By: Tolu Sharma on 07-29-2023 MCV (RBC) [Entitic vol] 70.8 fL 80-94 [facility] Erythrocyte distribution wid th ratioOrdered By: Toluunique Sharma on 07-29-2023 Erythrocyte distribution width (RBC) [Ratio] 21.8 % 11.6-14.6 [facility] Erythrocyte distribution wid th standard deviationOrdered By: Toluunique Sharma on 07-29-2023 Erythrocyte distribution width (RBC) [Entitic vol] 54.1 fL 35.1-43.9 [facility] Hematocrit Auto (Bld) [Volum e fraction]Ordered By: Tolu Sharma on 07-29-2023 Hematocrit (Bld) [Volume fraction] 21.8 % 40-54 [facility] Hypochromatic red blood cell detectionOrdered By: Tolu Sharma on 07-29-2023 Hypochromia Ql (Bld) 1+ [facility] Immature granulocytes/100 WB C Auto (Bld)Ordered By: Tolu Sharma on 07-29-2023 Immature granulocytes/100 WBC (Bld) JORDAN WORKER [facility] Comment on above: Previous reported re sult: 5.900 %Edited by: TATYANA on 07/29/23:1902IG% - Immature Granulocytes (promyelocytes, myelocytes and metamyelocytes) > 1% indicates that a LEFT SHIFT is Present. Ketones Test strip Ql (U)Ord ered By: Tolu Sharma on 07-29-2023 Ketones Ql (U) Negative Negative [facility] Laboratory - Chemistry and C hemistry - challengeOrdered By: Tolu Sharma on 07-29-2023 Albumin/Globulin [Mass ratio] 0.4 {ratio} 0.9-2.4 [facility] ALP [Catalytic activity/Vol] 202 U/L 45-117 [facility] ALT [Catalytic activity/Vol] 16 U/L 16-61 [facility] CO2 [Moles/Vol] 23.0 mmol/L 21.0-32.0 [facility] Globulin (S) [Mass/Vol] 5.2 g/dL 2.2-4.2 [facility] Urea nitrogen/Creatinine [Mass ratio] 21.8 mg/mg 10-20 [facility] Laboratory - CoagulationOrde red By: Tolu Sharma on 07-29-2023 INR Coag (Bld) [Relative time] 1.4 {INR} [facility] PT Coag (PPP) [Time] 16.7 s 11.7-14.9 [facility] Laboratory - Hematology and Cell countsOrdered By: Tolu Sharma on 07-29-2023 Anisocytosis Ql (Bld) 1+ [facility] MCH (RBC) [Entitic mass] 19.2 pg 27.0-32.0 [facility] MCHC (RBC) [Mass/Vol] 27.1 g/dL 32-36 [facility] Myelocytes/100 WBC (Bld) 3 % 0-0 [facility] Platelet mean volume (Bld) [Entitic vol] 8.8 fL 6.2-12.0 [facility] Platelets (Bld) [#/Vol] 915 10*3/uL 150-450 [facility] Comment on above: CRITICAL VALUE VERIF IED. CALLED TO ANTONIO BARNES [id number] Jd Gusman.RESULTS READ BACK BY SAME . Laboratory - Microbiology an d Antimicrobial susceptibilityOrdered By: Tolu Sharma on 07-29-2023 Bacteria identified Cx Nom (Bld) No growth in 5 days. [facility] Bacteria identified Cx Nom (Bld) ESBL Escherichia coli [facility] Mucus LM Ql (Urine sed)Order ed By: Tolu Sharma on 07-29-2023 Mucus Ql (Urine sed) 0 SEEN /hpf [facility] Nitrite Test strip Ql (U)Ord ered By: Tolu Sharma on 07-29-2023 Nitrite Ql (U) Positive Negative [facility] No Panel InformationOrdered By: Tolu Sharma on 07-29-2023 Urine RBC 5-10 SEEN /hpf 0-5 [facility] Estimated GFR (MDRD) Amer 180 mL/min >60 [facility] Comment on above: GFR Calc Estimated GFR (MDRD) Non-Af Amer 149 mL/min >60 [facility] Comment on above: Non- GFR Calc Nucleated Red Blood Cells % JORDAN WORKER [facility] Comment on above: Previous reported re sult: 0.5 %Edited by: TATYANA on 07/29/23:1901 Protein Test strip Ql (U)Ord ered By: Tolu Sharma on 07-29-2023 Protein Ql (U) 100 mg/dl Negative [facility] RBC Auto (Bld) [#/Vol]Ordere d By: Tolu Sharma on 07-29-2023 RBC (Bld) [#/Vol] 3.08 10*6/uL 4.6-6.2 [facility] RBC morphologyOrdered By: Bart Sharma on 07-29-2023 RBC morphology finding Nom (Bld) N CHROM NORMAL NORM C&C [facility] Review by pathologistOrdered By: Tolu Sharma on 07-29-2023 Pathologist review Guerrero (Unsp spec) [Interp] Stephany whitfield [facility] Pathologist review Guerrero (Unsp spec) [Interp] Reviewed [facility] Comment on above: Previous reported re sult: Stephany nahid Edited by: ANGELICA on 08/02/23:1022Neutrophilic left shift.Clinical correlation necessary.Thrombocytosis.Severe Microcytic anemia.Leukocytosis.Stevan Goff M.D. 08/02/23 AMENDED REPORT 08/02/23 1022 PATH REV previously reported as: Stephany whitfield Serum or plasma calcium sarah urement (mass/volume)Ordered By: Tolu Sharma on 07-29-2023 Calcium [Mass/Vol] 8.2 mg/dL 8.5-10.1 [facility] Serum or plasma creatinine m easurement (mass/volume)Ordered By: Tolu Sharma on 07-29-2023 Creatinine [Mass/Vol] 0.60 mg/dL 0.70-1.30 [facility] Comment on above: The validity of the calculated GFR & GFRAA in patients over 70 years has not been determined. Clinical correlation is essential. Serum or plasma urea nitroge n measurement (mass/volume)Ordered By: Tolu Sharma on 07-29-2023 Urea nitrogen [Mass/Vol] 13 mg/dL 7-18 [facility] Squamous epithelial cells de tection in urine sediment by light microscopyOrdered By: Tolu Sharma on 07-29-2023 Epithelial cells.squamous LM Ql (Urine sed) 0 SEEN /hpf 0-5 [facility] Thin prep Papanicolaou smear with manual screeningOrdered By: Tolu Sharma on 07-29-2023 Thin prep Papanicolaou smear with manual screening 1+ [facility] Thin prep Papanicolaou smear with manual screening 1.9 g/dL 3.2-5.0 [facility] Thin prep Papanicolaou smear with manual screening 13 U/L 15-37 [facility] Thin prep Papanicolaou smear with manual screening 8 5-15 [facility] Total cell countOrdered By: Tolu Sharma on 07-29-2023 Cells counted Molgen (Bld/Tiss) [#] JORDAN WORKER [facility] Comment on above: Previous reported re sult: 100 Edited by: TATYANA on 07/29/23:1926 Urine blood detectionOrdered By: Tolu Sharma on 07-29-2023 RBC Ql (U) 150 /ul Negative [facility] Urine clarityOrdered By: Tolu Sharma on 07-29-2023 Clarity (U) Sl. Cloudy Clear [facility] Urine color determinationOrd ered By: Tolu Sharma on 07-29-2023 Color (U) Yellow Yellow [facility] Urine glucose detectionOrder ed By: Tolu Sharma on 07-29-2023 Glucose Ql (U) Normal mg/dl Normal [facility] Urine leukocyte esterase det ection by dipstickOrdered By: Tolu Sharma on 07-29-2023 Leukocyte esterase Test strip Ql (U) 500 /ul Negative [facility] Urine pHOrdered By: Tolu monteiro on 07-29-2023 pH (U) 6.5 [pH] 5.0 - 8.0 [facility] Urine sediment bacteria coun t by microscopy (number/high power field)Ordered By: Tolu Sharma on 07-29-2023 Bacteria LM.HPF (Urine sed) [#/Area] 4 /[HPF] None Seen [facility] Urine specific gravity measu rementOrdered By: Tolu Sharma on 07-29-2023 Specific gravity (U) [Rel density] 1.010 1.002-1.030 [facility] Urine urobilinogen measureme ntOrdered By: Tolu Sharma on 07-29-2023 Urobilinogen Ql (U) Normal mg/dl Normal [facility] Bacteria identified Anaer cx Nom (Unsp spec)Ordered By: Peter Thayer on 06-24-2023 Anaerobic Culture Bacteroides fragilis [facility] Anaerobic Culture Anaerobic cocci [facility] Bacteria identified Cx Nom ( Wound)Ordered By: Peter Thayer on 06-24-2023 Wound Culture Klebsiella pneumonia e sp pneum [facility] Wound Culture Enterococcus faecalis [facility] Wound Culture Proteus mirabilis [facility] Wound Culture ESBL Escherichia coli [facility] Gram stain for investigation of transfusion reactionOrdered By: Peter Thayer on 06-24-2023 Microscopic observation Gram stain Nom (Unsp spec) [facility] Microscopic observation Gram stain Nom (Unsp spec) [facility] CBC W Auto Differential pane l (Bld)on 06-15-2023 Basophils (Bld) [#/Vol] 0.08 10*3/uL Normal <0.11 [facility] Comment on above: Order Comment: Speci men Type: BLOOD SPECIMENOrdering Facility: [facility] Address: [address] [place] [address] Performed By: #### 5 7021-8 ####[facility] LABORATORYCLIA [id number] [place] [address] [place] Basophils/100 WBC (Bld) 0.8 % Normal [facility] Comment on above: Order Comment: Speci men Type: BLOOD SPECIMENOrdering Facility: [facility] Address: [address] [place] [address] Performed By: #### 5 7021-8 ####[facility] LABORATORYCLIA [id number] [place] [address] [place] Differential cell count method Nom (Bld) Auto Normal [facility] Comment on above: Order Comment: Speci men Type: BLOOD SPECIMENOrdering Facility: [facility] Address: [address] [place] [address] Performed By: #### 5 7021-8 ####[facility]ORATORYCLIA [id number] [place] [address] [place] Eosinophils (Bld) [#/Vol] 0.60 10*3/uL High <0.46 [facility] Comment on above: Order Comment: Speci men Type: BLOOD SPECIMENOrdering Facility: [facility] Address: [address] [place] [address] Performed By: #### 5 7021-8 ####[facility] LABORATORYCLIA [id number] [place] [address] [place] Eosinophils/100 WBC (Bld) 6.0 % Normal [facility] Comment on above: Order Comment: Speci men Type: BLOOD SPECIMENOrdering Facility: [facility] Address: [address] [place] [address] Performed By: #### 5 7021-8 ####[facility]ORATORYCLIA [id number] [place] [address] [place] Erythrocyte distribution width (RBC) [Ratio] 20.8 % High 11.5-15.0 [facility] Comment on above: Order Comment: Speci men Type: BLOOD SPECIMENOrdering Facility: [facility] Address: [address] [place] [address] Performed By: #### 5 7021-8 ####[facility] LABORATORYCLIA [id number] [place] [address] [place] Hematocrit (Bld) [Volume fraction] 30.2 % Low 39.0-51.0 [facility] Comment on above: Order Comment: Speci men Type: BLOOD SPECIMENOrdering Facility: [facility] Address: [address] [place] [address] Performed By: #### 5 7021-8 ####[facility]ORATORYCLIA [id number] [place] [address] [place] Hemoglobin (Bld) [Mass/Vol] 8.6 g/dL Low 13.0-17.0 [facility] Comment on above: Order Comment: Speci men Type: BLOOD SPECIMENOrdering Facility: [facility] Address: [address] [place] [address] Performed By: #### 5 7021-8 ####[facility]ORATORYCLIA [id number] [place] [address] [place] Immature granulocytes (Bld) [#/Vol] 0.08 10*3/uL Normal <0.10 [facility] Comment on above: Order Comment: Speci men Type: BLOOD SPECIMENOrdering Facility: [facility] Address: [address] [place] [address] Performed By: #### 5 7021-8 ####[facility] LABORATORYCLIA [id number] [place] [address] [place] Immature granulocytes/100 WBC (Bld) 0.8 % Normal [facility] Comment on above: Order Comment: Speci men Type: BLOOD SPECIMENOrdering Facility: [facility] Address: [address] [place] [address] Performed By: #### 5 7021-8 ####[facility] LABORATORYCLIA [id number] [place] [address] [place] Lymphocytes (Bld) [#/Vol] 2.74 10*3/uL Normal 1.00-4.00 [facility] Comment on above: Order Comment: Speci men Type: BLOOD SPECIMENOrdering Facility: [facility] Address: [address] [place] [address] Performed By: #### 5 7021-8 ####[facility] LABORATORYCLIA [id number] [place] [address] [place] Lymphocytes/100 WBC (Bld) 27.5 % Normal [facility] Comment on above: Order Comment: Speci men Type: BLOOD SPECIMENOrdering Facility: [facility] Address: [address] [place] [address] Performed By: #### 5 7021-8 ####[facility] LABORATORYCLIA [id number] [place] [address] [place] MCH (RBC) [Entitic mass] 22.0 pg Low 26.0-34.0 [facility] Comment on above: Order Comment: Speci men Type: BLOOD SPECIMENOrdering Facility: [facility] Address: [address] [place] [address] Performed By: #### 5 7021-8 ####[facility] LABORATORYCLIA [id number] [place] [address] [place] MCHC (RBC) [Mass/Vol] 28.5 g/dL Low 30.5-36.0 [facility] Comment on above: Order Comment: Speci men Type: BLOOD SPECIMENOrdering Facility: [facility] Address: [address] [place] [address] Performed By: #### 5 7021-8 ####[facility] LABORATORYCLIA [id number] [place] [address] [place] MCV (RBC) [Entitic vol] 77.2 fL Low 80.0-100.0 [facility] Comment on above: Order Comment: Speci men Type: BLOOD SPECIMENOrdering Facility: [facility] Address: [address] [place] [address] Performed By: #### 5 7021-8 ####[facility] LABORATORYCLIA [id number] [place] [address] [place] Monocytes (Bld) [#/Vol] 1.12 10*3/uL High <0.87 [facility] Comment on above: Order Comment: Speci men Type: BLOOD SPECIMENOrdering Facility: [facility] Address: [address] [place] [address] Performed By: #### 5 7021-8 ####[facility]ORATORYCLIA [id number] [place] [address] [place] Monocytes/100 WBC (Bld) 11.3 % Normal [facility] Comment on above: Order Comment: Speci men Type: BLOOD SPECIMENOrdering Facility: [facility] Address: [address] [place] [address] Performed By: #### 5 7021-8 ####[facility]ORATORYCLIA [id number] [place] [address] [place] Neutrophils (Bld) [#/Vol] 5.33 10*3/uL Normal 1.45-7.50 [facility] Comment on above: Order Comment: Speci men Type: BLOOD SPECIMENOrdering Facility: [facility] Address: [address] [place] [address] Performed By: #### 5 7021-8 ####[facility] LABORATORYCLIA [id number] [place] [address] [place] Neutrophils/100 WBC (Bld) 53.6 % Normal [facility] Comment on above: Order Comment: Speci men Type: BLOOD SPECIMENOrdering Facility: [facility] Address: [address] [place] [address] Performed By: #### 5 7021-8 ####[facility] LABORATORYCLIA [id number] [place] [address] [place] Nucleated RBC (Bld) [#/Vol] 10*3/uL Normal <0.01 [facility] Comment on above: Order Comment: Speci men Type: BLOOD SPECIMENOrdering Facility: [facility] Address: [address] [place] [address] Performed By: #### 5 7021-8 ####[facility] LABORATORYCLIA [id number] [place] [address] [place] Nucleated RBC/100 WBC (Bld) [Ratio] 0.0 /100 WBC Normal [facility] Comment on above: Order Comment: Speci men Type: BLOOD SPECIMENOrdering Facility: [facility] Address: [address] [place] [address] Performed By: #### 5 7021-8 ####[facility] LABORATORYCLIA [id number] [place] [address] [place] Platelet mean volume (Bld) [Entitic vol] 9.8 fL Normal 9.0-12.7 [facility] Comment on above: Order Comment: Speci men Type: BLOOD SPECIMENOrdering Facility: [facility] Address: [address] [place] [address] Performed By: #### 5 7021-8 ####[facility]ORATORYCLIA [id number] [place] [address] [place] Platelets (Bld) [#/Vol] 419 10*3/uL High 150-400 [facility] Comment on above: Order Comment: Speci men Type: BLOOD SPECIMENOrdering Facility: [facility] Address: [address] [place] [address] Performed By: #### 5 7021-8 ####[facility] LABORATORYCLIA [id number] [place] [address] [place] RBC (Bld) [#/Vol] 3.91 10*6/uL Low 4.20-6.00 [facility] Comment on above: Order Comment: Speci men Type: BLOOD SPECIMENOrdering Facility: [facility] Address: [address] [place] [address] Performed By: #### 5 7021-8 ####[facility] LABORATORYCLIA [id number] [place] [address] [place] WBC (Bld) [#/Vol] 9.95 10*3/uL Normal 3.70-11.00 [facility] Comment on above: Order Comment: Speci men Type: BLOOD SPECIMENOrdering Facility: [facility] Address: [address] [place] [address] Performed By: #### 5 7021-8 ####[facility] LABORATORYCLIA [id number] [place] [address] [place] Comprehensive metabolic 2000 panelon 06-15-2023 Albumin [Mass/Vol] 3.7 g/dL Low 3.9-4.9 [facility] Comment on above: Order Comment: Speci men Type: BLOOD SPECIMENOrdering Facility: [facility] Address: [address] [place] [address] Performed By: #### 2 4323-8 ####[facility]ORATORYCLIA [id number] [place] [address] [place] ALP [Catalytic activity/Vol] 108 U/L Normal 38-113 [facility] Comment on above: Order Comment: Speci men Type: BLOOD SPECIMENOrdering Facility: [facility] Address: [address] [place] [address] Performed By: #### 2 4323-8 ####[facility] LABORATORYCLIA [id number] [place] [address] [place] ALT [Catalytic activity/Vol] 12 U/L Normal 10-54 [facility] Comment on above: Order Comment: Speci men Type: BLOOD SPECIMENOrdering Facility: [facility] Address: [address] [place] [address] Performed By: #### 2 4323-8 ####[facility] LABORATORYCLIA [id number] [place] [address] [place] Anion gap [Moles/Vol] 13 mmol/L Normal 9-18 [facility] Comment on above: Order Comment: Speci men Type: BLOOD SPECIMENOrdering Facility: [facility] Address: [address] [place] [address] Performed By: #### 2 4323-8 ####[facility] LABORATORYCLIA [id number] [place] [address] [place] AST [Catalytic activity/Vol] 11 U/L Low 14-40 [facility] Comment on above: Order Comment: Speci men Type: BLOOD SPECIMENOrdering Facility: [facility] Address: [address] [place] [address] Performed By: #### 2 4323-8 ####[facility] LABORATORYCLIA [id number] [place] [address] [place] Bilirubin [Mass/Vol] 0.2 mg/dL Normal 0.2-1.3 [facility] Comment on above: Order Comment: Speci men Type: BLOOD SPECIMENOrdering Facility: [facility] Address: [address] [place] [address] Performed By: #### 2 4323-8 ####[facility]ORATORYCLIA [id number] [place] [address] [place] Calcium [Mass/Vol] 9.3 mg/dL Normal 8.5-10.2 [facility] Comment on above: Order Comment: Speci men Type: BLOOD SPECIMENOrdering Facility: [facility] Address: [address] [place] [address] Performed By: #### 2 4323-8 ####[facility]ORATORYCLIA [id number] [place] [address] [place] Chloride [Moles/Vol] 96 mmol/L Low 97-105 [facility] Comment on above: Order Comment: Speci men Type: BLOOD SPECIMENOrdering Facility: [facility] Address: [address] [place] [address] Performed By: #### 2 4323-8 ####[facility]ORATORYCLIA [id number] [place] [address] [place] CO2 [Moles/Vol] 27 mmol/L Normal 22-30 [facility] Comment on above: Order Comment: Speci men Type: BLOOD SPECIMENOrdering Facility: [facility] Address: [address] [place] [address] Performed By: #### 2 4323-8 ####[facility]ORATORYCLIA [id number] [place] [address] [place] Creatinine [Mass/Vol] 0.56 mg/dL Low 0.73-1.22 [facility] Comment on above: Order Comment: Speci men Type: BLOOD SPECIMENOrdering Facility: [facility] Address: [address] [place] [address] Performed By: #### 2 4323-8 ####[facility]ORATORYCLIA [id number] [place] [address] [place] Creatinine and Glomerular filtration rate.predicted panel (S/P/Bld) 116 mL/min/1.73m??? Normal >=60 [facility] Comment on above: Order Comment: Doroteo zavala Type: BLOOD SPECIMENOrdering Facility: [facility] Address: [address] [place] [address] Result Comment: [facility] Glomerular Filtration Rate (eGFR) is calculated using the 2020 CKD-EPI creatinine equation. This equation utilizes serum creatinine, sex, and age as parameters. The creatinine assay has traceable calibration to isotope dilution-mass spectrometry. Refer to KDIGO guidelines for clinical interpretation. In patients with unstable renal function, e.g. those with acute kidney injury, the eGFR may not accurately reflect actual GFR. Performed By: #### 2 4323-8 ####[facility] LABORATORYCLIA [id number] [place] [address] [place] Glucose [Mass/Vol] 198 mg/dL High 74-99 [facility] Comment on above: Order Comment: Doroteo zavala Type: BLOOD SPECIMENOrdering Facility: [facility] Address: [address] [place] [address] Result Comment: The [place] [employer] (ADA) provides guidance for cutoff values for fasting glucose and random glucose. The ADA defines fasting as no caloric intake for at least 8 hours. Fasting plasma glucose results between 100 to 125 mg/dL indicate increased risk for diabetes (prediabetes).Fasting plasma glucose results greater than or equal to 126 mg/dL meet the criteria for diagnosis of diabetes. In the absence of unequivocal hyperglycemia, results should be confirmed by repeat testing. In a patient with classic symptoms of hyperglycemia or hyperglycemic crisis, random plasma glucose results greater than or equal to 200 mg/dL meet the criteria for diagnosis of diabetes.Reference: Standards of Medical Care in Diabetes 2016, [place] [employer]. Diabetes Care. 2016.39(Suppl 1). Performed By: #### 2 4323-8 ####[facility] LABORATORYCLIA [id number] [place] [id number] [place] Potassium [Moles/Vol] 4.9 mmol/L Normal 3.7-5.1 [facility] Comment on above: Order Comment: Speci men Type: BLOOD SPECIMENOrdering Facility: [facility] Address: [address] [place] [address] Performed By: #### 2 4323-8 ####[facility] LABORATORYCLIA [id number] [place] [address] [place] Protein [Mass/Vol] 7.0 g/dL Normal 6.3-8.0 [facility] Comment on above: Order Comment: Speci men Type: BLOOD SPECIMENOrdering Facility: [facility] Address: [address] [place] [address] Performed By: #### 2 4323-8 ####[facility] LABORATORYCLIA [id number] [place] [address] [place] Sodium [Moles/Vol] 136 mmol/L Normal 136-144 [facility] Comment on above: Order Comment: Speci men Type: BLOOD SPECIMENOrdering Facility: [facility] Address: [address] [place] [address] Performed By: #### 2 4323-8 ####[facility] LABORATORYCLIA [id number] [place] [address] [place] Urea nitrogen [Mass/Vol] 16 mg/dL Normal 9-24 [facility] Comment on above: Order Comment: Speci men Type: BLOOD SPECIMENOrdering Facility: [facility] Address: [address] [place] [address] Performed By: #### 2 4323-8 ####[facility] LABORATORYCLIA [id number] [place] [address] [place] Basic metabolic 2000 panelon 06-13-2023 Anion gap [Moles/Vol] 16 mmol/L Normal 9-18 [facility] Comment on above: Order Comment: Speci men Type: BLOOD SPECIMENOrdering Facility: [facility] Address: [address] [place] [address] Performed By: #### 2 4321-2 ####[facility] LABORATORYCLIA [id number] [place] [address] [place] Calcium [Mass/Vol] 9.4 mg/dL Normal 8.5-10.2 [facility] Comment on above: Order Comment: Speci men Type: BLOOD SPECIMENOrdering Facility: [facility] Address: [address] [place] [address] Performed By: #### 2 4321-2 ####[facility] LABORATORYCLIA [id number] [place] [address] [place] Chloride [Moles/Vol] 99 mmol/L Normal 97-105 [facility] Comment on above: Order Comment: Speci men Type: BLOOD SPECIMENOrdering Facility: [facility] Address: [address] [place] [address] Performed By: #### 2 4321-2 ####[facility] ESTATESCREST LABORATORYCLIA [id number] [place] [address] [place] CO2 [Moles/Vol] 24 mmol/L Normal 22-30 [facility] Comment on above: Order Comment: Speci men Type: BLOOD SPECIMENOrdering Facility: [facility] Address: [address] [place] [address] Performed By: #### 2 4321-2 ####[facility] ESTATESCREST LABORATORYCLIA [id number] [place] [address] [place] Creatinine [Mass/Vol] 0.56 mg/dL Low 0.73-1.22 [facility] Comment on above: Order Comment: Speci men Type: BLOOD SPECIMENOrdering Facility: [facility] Address: [address] [place] [address] Performed By: #### 2 4321-2 ####[facility] ESTATESCREST LABORATORYCLIA [id number] [place] [address] [place] Creatinine and Glomerular filtration rate.predicted panel (S/P/Bld) 116 mL/min/1.73m??? Normal >=60 [facility] Comment on above: Order Comment: Speci men Type: BLOOD SPECIMENOrdering Facility: [facility] Address: [address] [place] [address] Result Comment: [facility] Fil[facility] Rate (eGFR) is calculated using the 2020 CKD-EPI creatinine equation. This equation utilizes serum creatinine, sex, and age as parameters. The creatinine assay has traceable calibration to isotope dilution-mass spectrometry. Refer to KDIGO guidelines for clinical interpretation. In patients with unstable renal function, e.g. those with acute kidney injury, the eGFR may not accurately reflect actual GFR. Performed By: #### 2 4321-2 ####[facility] ESTATESCRE LABORATORYCLIA [id number] [place] [address] [place] Glucose [Mass/Vol] 173 mg/dL High 74-99 [facility] Comment on above: Order Comment: Doroteo zavala Type: BLOOD SPECIMENOrdering Facility: [facility] Address: [address] [place] [address] Result Comment: The [place] Diabetes [employer] (ADA) provides guidance for cutoff values for fasting glucose and random glucose. The ADA defines fasting as no caloric intake for at least 8 hours. Fasting plasma glucose results between 100 to 125 mg/dL indicate increased risk for diabetes (prediabetes).Fasting plasma glucose results greater than or equal to 126 mg/dL meet the criteria for diagnosis of diabetes. In the absence of unequivocal hyperglycemia, results should be confirmed by repeat testing. In a patient with classic symptoms of hyperglycemia or hyperglycemic crisis, random plasma glucose results greater than or equal to 200 mg/dL meet the criteria for diagnosis of diabetes.Reference: Standards of Medical Care in Diabetes 2016, [place] [employer]. Diabetes Care. 2016.39(Suppl 1). Performed By: #### 2 4321-2 ####[facility] ESTATESCRE LABORATORYCLIA [id number] [place] [address] [place] Potassium [Moles/Vol] 4.8 mmol/L Normal 3.7-5.1 [facility] Comment on above: Order Comment: Doroteo zavala Type: BLOOD SPECIMENOrdering Facility: [facility] Address: [address] [place] [address] Performed By: #### 2 4321-2 ####[facility]CRE[facility] LABORATORYCLIA [id number] [place] [address] [place] Sodium [Moles/Vol] 139 mmol/L Normal 136-144 [facility] Comment on above: Order Comment: Speci men Type: BLOOD SPECIMENOrdering Facility: [facility] Address: [address] [place] [address] Performed By: #### 2 4321-2 ####[facility] LABORATORYCLIA [id number] [place] [address] [place] Urea nitrogen [Mass/Vol] 11 mg/dL Normal 9-24 [facility] Comment on above: Order Comment: Speci men Type: BLOOD SPECIMENOrdering Facility: [facility] Address: [address] [place] [address] Performed By: #### 2 4321-2 ####[facility]CRE[facility] LABORATORYCLIA [id number] [place] [address] [place] CBC W Auto Differential pane l (Bld)on 06-13-2023 Basophils (Bld) [#/Vol] 0.10 10*3/uL Normal <0.11 [facility] Comment on above: Order Comment: Speci men Type: BLOOD SPECIMENOrdering Facility: [facility] Address: [address] [place] [address] Performed By: #### 5 7021-8 ####[facility]CRE[facility] LABORATORYCLIA [id number] [place] [address] [place] Basophils/100 WBC (Bld) 1.0 % Normal [facility] Comment on above: Order Comment: Speci men Type: BLOOD SPECIMENOrdering Facility: [facility] Address: [address] [place] [address] Performed By: #### 5 7021-8 ####[facility] LABORATORYCLIA [id number] [place] [address] [place] Differential cell count method Nom (Bld) Auto Normal [facility] Comment on above: Order Comment: Speci men Type: BLOOD SPECIMENOrdering Facility: [facility] Address: [address] [place] [address] Performed By: #### 5 7021-8 ####[facility] LABORATORYCLIA [id number] [place] [address] [place] Eosinophils (Bld) [#/Vol] 0.61 10*3/uL High <0.46 [facility] Comment on above: Order Comment: Speci men Type: BLOOD SPECIMENOrdering Facility: [facility] Address: [address] [place] [address] Performed By: #### 5 7021-8 ####[facility]CRE[facility] LABORATORYCLIA [id number] [place] [address] [place] Eosinophils/100 WBC (Bld) 6.3 % Normal [facility] Comment on above: Order Comment: Speci men Type: BLOOD SPECIMENOrdering Facility: [facility] Address: [address] [place] [address] Performed By: #### 5 7021-8 ####[facility] LABORATORYCLIA [id number] [place] [address] [place] Erythrocyte distribution width (RBC) [Ratio] 20.7 % High 11.5-15.0 [facility] Comment on above: Order Comment: Speci men Type: BLOOD SPECIMENOrdering Facility: [facility] Address: [address] [place] [address] Performed By: #### 5 7021-8 ####[facility] LABORATORYCLIA [id number] [place] [address] [place] Hematocrit (Bld) [Volume fraction] 30.1 % Low 39.0-51.0 [facility] Comment on above: Order Comment: Speci men Type: BLOOD SPECIMENOrdering Facility: [facility] Address: [address] [place] [address] Performed By: #### 5 7021-8 ####[facility] LABORATORYCLIA [id number] [place] [address] [place] Hemoglobin (Bld) [Mass/Vol] 8.5 g/dL Low 13.0-17.0 [facility] Comment on above: Order Comment: Speci men Type: BLOOD SPECIMENOrdering Facility: [facility] Address: [address] [place] [address] Performed By: #### 5 7021-8 ####[facility] LABORATORYCLIA [id number] [place] [address] [place] Immature granulocytes (Bld) [#/Vol] 0.05 10*3/uL Normal <0.10 [facility] Comment on above: Order Comment: Speci men Type: BLOOD SPECIMENOrdering Facility: [facility] Address: [address] [place] [address] Performed By: #### 5 7021-8 ####[facility] LABORATORYCLIA [id number] [place] [address] [place] Immature granulocytes/100 WBC (Bld) 0.5 % Normal [facility] Comment on above: Order Comment: Speci men Type: BLOOD SPECIMENOrdering Facility: [facility] Address: [address] [place] [address] Performed By: #### 5 7021-8 ####[facility] ESTATESCREST LABORATORYCLIA [id number] [place] [address] [place] Lymphocytes (Bld) [#/Vol] 2.57 10*3/uL Normal 1.00-4.00 [facility] Comment on above: Order Comment: Speci men Type: BLOOD SPECIMENOrdering Facility: [facility] Address: [address] [place] [address] Performed By: #### 5 7021-8 ####[facility] LABORATORYCLIA [id number] [place] [address] [place] Lymphocytes/100 WBC (Bld) 26.5 % Normal [facility] Comment on above: Order Comment: Speci men Type: BLOOD SPECIMENOrdering Facility: [facility] Address: [address] [place] [address] Performed By: #### 5 7021-8 ####[facility] LABORATORYCLIA [id number] [place] [address] [place] MCH (RBC) [Entitic mass] 22.0 pg Low 26.0-34.0 [facility] Comment on above: Order Comment: Speci men Type: BLOOD SPECIMENOrdering Facility: [facility] Address: [address] [place] [address] Performed By: #### 5 7021-8 ####[facility] LABORATORYCLIA [id number] [place] [address] [place] MCHC (RBC) [Mass/Vol] 28.2 g/dL Low 30.5-36.0 [facility] Comment on above: Order Comment: Speci men Type: BLOOD SPECIMENOrdering Facility: [facility] Address: [address] [place] [address] Performed By: #### 5 7021-8 ####[facility] LABORATORYCLIA [id number] [place] [address] [place] MCV (RBC) [Entitic vol] 78.0 fL Low 80.0-100.0 [facility] Comment on above: Order Comment: Speci men Type: BLOOD SPECIMENOrdering Facility: [facility] Address: [address] [place] [address] Performed By: #### 5 7021-8 ####[facility] LABORATORYCLIA [id number] [place] [address] [place] Monocytes (Bld) [#/Vol] 0.86 10*3/uL Normal <0.87 [facility] Comment on above: Order Comment: Speci men Type: BLOOD SPECIMENOrdering Facility: [facility] Address: [address] [place] [address] Performed By: #### 5 7021-8 ####[facility] LABORATORYCLIA [id number] [place] [address] [place] Monocytes/100 WBC (Bld) 8.9 % Normal [facility] Comment on above: Order Comment: Speci men Type: BLOOD SPECIMENOrdering Facility: [facility] Address: [address] [place] [address] Performed By: #### 5 7021-8 ####[facility] LABORATORYCLIA [id number] [place] [address] [place] Neutrophils (Bld) [#/Vol] 5.49 10*3/uL Normal 1.45-7.50 [facility] Comment on above: Order Comment: Speci men Type: BLOOD SPECIMENOrdering Facility: [facility] Address: [address] [place] [address] Performed By: #### 5 7021-8 ####[facility] LABORATORYCLIA [id number] [place] [address] [place] Neutrophils/100 WBC (Bld) 56.8 % Normal [facility] Comment on above: Order Comment: Speci men Type: BLOOD SPECIMENOrdering Facility: [facility] Address: [address] [place] [address] Performed By: #### 5 7021-8 ####[facility] LABORATORYCLIA [id number] [place] [address] [place] Nucleated RBC (Bld) [#/Vol] 10*3/uL Normal <0.01 [facility] Comment on above: Order Comment: Speci men Type: BLOOD SPECIMENOrdering Facility: [facility] Address: [address] [place] [address] Performed By: #### 5 7021-8 ####[facility] LABORATORYCLIA [id number] [place] [address] [place] Nucleated RBC/100 WBC (Bld) [Ratio] 0.0 /100 WBC Normal [facility] Comment on above: Order Comment: Speci men Type: BLOOD SPECIMENOrdering Facility: [facility] Address: [address] [place] [address] Performed By: #### 5 7021-8 ####[facility] LABORATORYCLIA [id number] [place] [address] [place] Platelet mean volume (Bld) [Entitic vol] 9.6 fL Normal 9.0-12.7 [facility] Comment on above: Order Comment: Speci men Type: BLOOD SPECIMENOrdering Facility: [facility] Address: [address] [place] [address] Performed By: #### 5 7021-8 ####[facility] LABORATORYCLIA [id number] [place] [address] [place] Platelets (Bld) [#/Vol] 397 10*3/uL Normal 150-400 [facility] Comment on above: Order Comment: Speci men Type: BLOOD SPECIMENOrdering Facility: [facility] Address: [address] [place] [address] Performed By: #### 5 7021-8 ####[facility] LABORATORYCLIA [id number] [place] [address] [place] RBC (Bld) [#/Vol] 3.86 10*6/uL Low 4.20-6.00 [facility] Comment on above: Order Comment: Speci men Type: BLOOD SPECIMENOrdering Facility: [facility] Address: [address] [place] [address] Performed By: #### 5 7021-8 ####[facility] LABORATORYCLIA [id number] [place] [address] [place] WBC (Bld) [#/Vol] 9.68 10*3/uL Normal 3.70-11.00 [facility] Comment on above: Order Comment: Speci men Type: BLOOD SPECIMENOrdering Facility: [facility] Address: [address] [place] [address] Performed By: #### 5 7021-8 ####[facility] LABORATORYCLIA [id number] [place] [address] [place] Hepatic function 2000 panelo n 06-13-2023 Albumin [Mass/Vol] 3.6 g/dL Low 3.9-4.9 [facility] Comment on above: Order Comment: Speci men Type: BLOOD SPECIMENOrdering Facility: [facility] Address: [address] [place] [address] Performed By: #### 2 4325-3 ####[facility] LABORATORYCLIA [id number] [place] [address] [place] ALP [Catalytic activity/Vol] 104 U/L Normal 38-113 [facility] Comment on above: Order Comment: Speci men Type: BLOOD SPECIMENOrdering Facility: [facility] Address: [address] [place] [address] Performed By: #### 2 4325-3 ####[facility] LABORATORYCLIA [id number] [place] [address] [place] ALT [Catalytic activity/Vol] 14 U/L Normal 10-54 [facility] Comment on above: Order Comment: Speci men Type: BLOOD SPECIMENOrdering Facility: [facility] Address: [address] [place] [address] Performed By: #### 2 5-3 ####[facility] LABORATORYCLIA [id number] [place] [address] [place] AST [Catalytic activity/Vol] 16 U/L Normal 14-40 [facility] Comment on above: Order Comment: Speci men Type: BLOOD SPECIMENOrdering Facility: [facility] Address: [address] [place] [address] Performed By: #### 2 4324-3 ####[facility] LABORATORYCLIA [id number] [place] [address] [place] Bilirubin [Mass/Vol] 0.2 mg/dL Normal 0.2-1.3 [facility] Comment on above: Order Comment: Speci men Type: BLOOD SPECIMENOrdering Facility: [facility] Address: [address] [place] [address] Performed By: #### 2 5-3 ####[facility] LABORATORYCLIA [id number] [place] [address] [place] Bilirubin.conjugated [Mass/Vol] mg/dL Normal <0.2 [facility] Comment on above: Order Comment: Speci men Type: BLOOD SPECIMENOrdering Facility: [facility] Address: [address] [place] [address] Performed By: #### 2 5-3 ####[facility] LABORATORYCLIA [id number] [place] [address] [place] Protein [Mass/Vol] 6.8 g/dL Normal 6.3-8.0 [facility] Comment on above: Order Comment: Speci men Type: BLOOD SPECIMENOrdering Facility: [facility] Address: [address] [place] [address] Performed By: #### 2 4325-3 ####[facility]CRE[facility] LABORATORYCLIA [id number] [place] [address] [place] Magnesium SerPl-mCncon 06-13 Magnesium [Mass/Vol] 1.8 mg/dL Normal 1.7-2.3 [facility] Comment on above: Order Comment: Speci men Type: BLOOD SPECIMENOrdering Facility: [facility] Address: [address] [place] [address] Performed By: #### 1 9123-9 ####[facility]CRE[facility] LABORATORYCLIA [id number] [place] [address] [place] Phosphate SerPl-mCncon 06-13 Phosphate [Mass/Vol] 4.5 mg/dL Normal 2.7-4.8 [facility] Comment on above: Order Comment: Speci men Type: BLOOD SPECIMENOrdering Facility: [facility] Address: [address] [place] [address] Performed By: #### 2 777-1 ####[facility] LABORATORYCLIA [id number] [place] [address] [place] Basic metabolic 2000 panelon 06-09-2023 Anion gap [Moles/Vol] 15 mmol/L Normal 9-18 [facility] Comment on above: Order Comment: Speci men Type: BLOOD SPECIMENOrdering Facility: [facility] Address: [address] [place] [address] Performed By: #### 2 4321-2 ####[facility] LABORATORYCLIA [id number] [place] [address] [place] Calcium [Mass/Vol] 9.0 mg/dL Normal 8.5-10.2 [facility] Comment on above: Order Comment: Speci men Type: BLOOD SPECIMENOrdering Facility: [facility] Address: [address] [place] [address] Performed By: #### 2 4321-2 ####[facility] LABORATORYCLIA [id number] [place] [address] [place] Chloride [Moles/Vol] 97 mmol/L Normal 97-105 [facility] Comment on above: Order Comment: Speci men Type: BLOOD SPECIMENOrdering Facility: [facility] Address: [address] [place] [address] Performed By: #### 2 4321-2 ####[facility] LABORATORYCLIA [id number] [place] [address] [place] CO2 [Moles/Vol] 24 mmol/L Normal 22-30 [facility] Comment on above: Order Comment: Speci men Type: BLOOD SPECIMENOrdering Facility: [facility] Address: [address] [place] [address] Performed By: #### 2 4321-2 ####[facility] LABORATORYCLIA [id number] [place] [address] [place] Creatinine [Mass/Vol] 0.61 mg/dL Low 0.73-1.22 [facility] Comment on above: Order Comment: Speci men Type: BLOOD SPECIMENOrdering Facility: [facility] Address: [address] [place] [address] Performed By: #### 2 4321-2 ####[facility] E[facility]CRE[facility] LABORATORYCLIA [id number] [place] [address] [place] Creatinine and Glomerular filtration rate.predicted panel (S/P/Bld) 113 mL/min/1.73m??? Normal >=60 [facility] Comment on above: Order Comment: Speci men Type: BLOOD SPECIMENOrdering Facility: [facility] Address: [address] [place] [address] Result Comment: Lola mated Glomerular Filtration Rate (eGFR) is calculated using the 2020 CKD-EPI creatinine equation. This equation utilizes serum creatinine, sex, and age as parameters. The creatinine assay has traceable calibration to isotope dilution-mass spectrometry. Refer to KDIGO guidelines for clinical interpretation. In patients with unstable renal function, e.g. those with acute kidney injury, the eGFR may not accurately reflect actual GFR. Performed By: #### 2 4321-2 ####[facility] LABORATORYCLIA [id number] [place] [address] [place] Glucose [Mass/Vol] 241 mg/dL High 74-99 [facility] Comment on above: Order Comment: Speci men Type: BLOOD SPECIMENOrdering Facility: [facility] Address: [address] [place] [address] Result Comment: The [place] Diabetes [employer] (ADA) provides guidance for cutoff values for fasting glucose and random glucose. The ADA defines fasting as no caloric intake for at least 8 hours. Fasting plasma glucose results between 100 to 125 mg/dL indicate increased risk for diabetes (prediabetes).Fasting plasma glucose results greater than or equal to 126 mg/dL meet the criteria for diagnosis of diabetes. In the absence of unequivocal hyperglycemia, results should be confirmed by repeat testing. In a patient with classic symptoms of hyperglycemia or hyperglycemic crisis, random plasma glucose results greater than or equal to 200 mg/dL meet the criteria for diagnosis of diabetes.Reference: Standards of Medical Care in Diabetes 2016, [place] [employer]. Diabetes Care. 2016.39(Suppl 1). Performed By: #### 2 4321-2 ####[facility] LABORATORYCLIA [id number] [place] [address] [place] Potassium [Moles/Vol] 4.4 mmol/L Normal 3.7-5.1 [facility] Comment on above: Order Comment: Speci men Type: BLOOD SPECIMENOrdering Facility: [facility] Address: [address] [place] [address] Performed By: #### 2 4321-2 ####[facility] LABORATORYCLIA [id number] [place] [address] [place] Sodium [Moles/Vol] 136 mmol/L Normal 136-144 [facility] Comment on above: Order Comment: Speci men Type: BLOOD SPECIMENOrdering Facility: [facility] Address: [address] [place] [address] Performed By: #### 2 4321-2 ####[facility] LABORATORYCLIA [id number] [place] [address] [place] Urea nitrogen [Mass/Vol] 14 mg/dL Normal 9-24 [facility] Comment on above: Order Comment: Speci men Type: BLOOD SPECIMENOrdering Facility: [facility] Address: [address] [place] [address] Performed By: #### 2 4321-2 ####[facility] LABORATORYCLIA [id number] [place] [address] [place] CBC W Auto Differential pane l (Bld)on 06-09-2023 Basophils (Bld) [#/Vol] 0.09 10*3/uL Normal <0.11 [facility] Comment on above: Order Comment: Speci men Type: BLOOD SPECIMENOrdering Facility: [facility] Address: [address] [place] [address] Performed By: #### 5 7021-8 ####[facility] LABORATORYCLIA [id number] [place] [address] [place] Basophils/100 WBC (Bld) 1.0 % Normal [facility] Comment on above: Order Comment: Speci men Type: BLOOD SPECIMENOrdering Facility: [facility] Address: [address] [place] [address] Performed By: #### 5 7021-8 ####[facility] LABORATORYCLIA [id number] [place] [address] [place] Differential cell count method Nom (Bld) Auto Normal [facility] Comment on above: Order Comment: Speci men Type: BLOOD SPECIMENOrdering Facility: [facility] Address: [address] [place] [address] Performed By: #### 5 7021-8 ####[facility] LABORATORYCLIA [id number] [place] [address] [place] Eosinophils (Bld) [#/Vol] 0.46 10*3/uL High <0.46 [facility] Comment on above: Order Comment: Speci men Type: BLOOD SPECIMENOrdering Facility: [facility] Address: [address] [place] [address] Performed By: #### 5 7021-8 ####[facility] LABORATORYCLIA [id number] [place] [address] [place] Eosinophils/100 WBC (Bld) 4.9 % Normal [facility] Comment on above: Order Comment: Speci men Type: BLOOD SPECIMENOrdering Facility: [facility] Address: [address] [place] [address] Performed By: #### 5 7021-8 ####[facility] LABORATORYCLIA [id number] [place] [address] [place] Erythrocyte distribution width (RBC) [Ratio] 21.7 % High 11.5-15.0 [facility] Comment on above: Order Comment: Speci men Type: BLOOD SPECIMENOrdering Facility: [facility] Address: [address] [place] [address] Performed By: #### 5 7021-8 ####[facility] LABORATORYCLIA [id number] [place] [address] [place] Hematocrit (Bld) [Volume fraction] 27.6 % Low 39.0-51.0 [facility] Comment on above: Order Comment: Speci men Type: BLOOD SPECIMENOrdering Facility: [facility] Address: [address] [place] [address] Performed By: #### 5 7021-8 ####[facility] LABORATORYCLIA [id number] [place] [address] [place] Hemoglobin (Bld) [Mass/Vol] 7.9 g/dL Low 13.0-17.0 [facility] Comment on above: Order Comment: Speci men Type: BLOOD SPECIMENOrdering Facility: [facility] Address: [address] [place] [address] Performed By: #### 5 7021-8 ####[facility] LABORATORYCLIA [id number] [place] [address] [place] Immature granulocytes (Bld) [#/Vol] 0.07 10*3/uL Normal <0.10 [facility] Comment on above: Order Comment: Speci men Type: BLOOD SPECIMENOrdering Facility: [facility] Address: [address] [place] [address] Performed By: #### 5 7021-8 ####[facility] LABORATORYCLIA [id number] [place] [address] [place] Immature granulocytes/100 WBC (Bld) 0.8 % Normal [facility] Comment on above: Order Comment: Speci men Type: BLOOD SPECIMENOrdering Facility: [facility] Address: [address] [place] [address] Performed By: #### 5 7021-8 ####[facility] LABORATORYCLIA [id number] [place] [address] [place] Lymphocytes (Bld) [#/Vol] 2.62 10*3/uL Normal 1.00-4.00 [facility] Comment on above: Order Comment: Speci men Type: BLOOD SPECIMENOrdering Facility: [facility] Address: [address] [place] [address] Performed By: #### 5 7021-8 ####[facility] LABORATORYCLIA [id number] [place] [address] [place] Lymphocytes/100 WBC (Bld) 28.1 % Normal [facility] Comment on above: Order Comment: Speci men Type: BLOOD SPECIMENOrdering Facility: [facility] Address: [address] [place] [address] Performed By: #### 5 7021-8 ####[facility] LABORATORYCLIA [id number] [place] [address] [place] MCH (RBC) [Entitic mass] 22.1 pg Low 26.0-34.0 [facility] Comment on above: Order Comment: Speci men Type: BLOOD SPECIMENOrdering Facility: [facility] Address: [address] [place] [address] Performed By: #### 5 7021-8 ####[facility] LABORATORYCLIA [id number] [place] [address] [place] MCHC (RBC) [Mass/Vol] 28.6 g/dL Low 30.5-36.0 [facility] Comment on above: Order Comment: Speci men Type: BLOOD SPECIMENOrdering Facility: [facility] Address: [address] [place] [address] Performed By: #### 5 7021-8 ####[facility] LABORATORYCLIA [id number] [place] [address] [place] MCV (RBC) [Entitic vol] 77.3 fL Low 80.0-100.0 [facility] Comment on above: Order Comment: Speci men Type: BLOOD SPECIMENOrdering Facility: [facility] Address: [address] [place] [address] Performed By: #### 5 7021-8 ####[facility] LABORATORYCLIA [id number] [place] [address] [place] Monocytes (Bld) [#/Vol] 1.16 10*3/uL High <0.87 [facility] Comment on above: Order Comment: Speci men Type: BLOOD SPECIMENOrdering Facility: [facility] Address: [address] [place] [address] Performed By: #### 5 7021-8 ####[facility] LABORATORYCLIA [id number] [place] [address] [place] Monocytes/100 WBC (Bld) 12.5 % Normal [facility] Comment on above: Order Comment: Speci men Type: BLOOD SPECIMENOrdering Facility: [facility] Address: [address] [place] [address] Performed By: #### 5 7021-8 ####[facility] LABORATORYCLIA [id number] [place] [address] [place] Neutrophils (Bld) [#/Vol] 4.91 10*3/uL Normal 1.45-7.50 [facility] Comment on above: Order Comment: Speci men Type: BLOOD SPECIMENOrdering Facility: [facility] Address: [address] [place] [address] Performed By: #### 5 7021-8 ####[facility] LABORATORYCLIA [id number] [place] [address] [place] Neutrophils/100 WBC (Bld) 52.7 % Normal [facility] Comment on above: Order Comment: Speci men Type: BLOOD SPECIMENOrdering Facility: [facility] Address: [address] [place] [address] Performed By: #### 5 7021-8 ####[facility] LABORATORYCLIA [id number] [place] [address] [place] Nucleated RBC (Bld) [#/Vol] 10*3/uL Normal <0.01 [facility] Comment on above: Order Comment: Speci men Type: BLOOD SPECIMENOrdering Facility: [facility] Address: [address] [place] [address] Performed By: #### 5 7021-8 ####[facility] LABORATORYCLIA [id number] [place] [address] [place] Nucleated RBC/100 WBC (Bld) [Ratio] 0.0 /100 WBC Normal [facility] Comment on above: Order Comment: Speci men Type: BLOOD SPECIMENOrdering Facility: [facility] Address: [address] [place] [address] Performed By: #### 5 7021-8 ####[facility] LABORATORYCLIA [id number] [place] [address] [place] Platelet mean volume (Bld) [Entitic vol] 9.9 fL Normal 9.0-12.7 [facility] Comment on above: Order Comment: Speci men Type: BLOOD SPECIMENOrdering Facility: [facility] Address: [address] [place] [address] Performed By: #### 5 7021-8 ####[facility] LABORATORYCLIA [id number] [place] [address] [place] Platelets (Bld) [#/Vol] 396 10*3/uL Normal 150-400 [facility] Comment on above: Order Comment: Speci men Type: BLOOD SPECIMENOrdering Facility: [facility] Address: [address] [place] [address] Performed By: #### 5 7021-8 ####[facility] LABORATORYCLIA [id number] [place] [address] [place] RBC (Bld) [#/Vol] 3.57 10*6/uL Low 4.20-6.00 [facility] Comment on above: Order Comment: Speci men Type: BLOOD SPECIMENOrdering Facility: [facility] Address: [address] [place] [address] Performed By: #### 5 7021-8 ####[facility] LABORATORYCLIA [id number] [place] [address] [place] WBC (Bld) [#/Vol] 9.31 10*3/uL Normal 3.70-11.00 [facility] Comment on above: Order Comment: Speci men Type: BLOOD SPECIMENOrdering Facility: [facility] Address: [address] [place] [address] Performed By: #### 5 7021-8 ####[facility] LABORATORYCLIA [id number] [place] [address] [place] CK SerPl-cCncon 06-09-2023 CK [Catalytic activity/Vol] 29 U/L Low 51-298 [facility] Comment on above: Order Comment: Speci men Type: BLOOD SPECIMENOrdering Facility: [facility] Address: [address] [place] [address] Performed By: #### 2 157-6 ####[facility] LABORATORYCLIA [id number] [place] [address] [place] Basic metabolic 2000 panelon 06-06-2023 Anion gap [Moles/Vol] 14 mmol/L Normal 9-18 [facility] Comment on above: Order Comment: Speci men Type: BLOOD SPECIMENOrdering Facility: [facility] Address: [address] [place] [address] Performed By: #### 2 4321-2 ####[facility] LABORATORYCLIA [id number] [place] [address] [place] Calcium [Mass/Vol] 8.9 mg/dL Normal 8.5-10.2 [facility] Comment on above: Order Comment: Speci men Type: BLOOD SPECIMENOrdering Facility: [facility] Address: [address] [place] [address] Performed By: #### 2 4321-2 ####[facility] LABORATORYCLIA [id number] [place] [address] [place] Chloride [Moles/Vol] 97 mmol/L Normal 97-105 [facility] Comment on above: Order Comment: Speci men Type: BLOOD SPECIMENOrdering Facility: [facility] Address: [address] [place] [address] Performed By: #### 2 4321-2 ####[facility] LABORATORYCLIA [id number] [place] [address] [place] CO2 [Moles/Vol] 26 mmol/L Normal 22-30 [facility] Comment on above: Order Comment: Speci men Type: BLOOD SPECIMENOrdering Facility: [facility] Address: [address] [place] [address] Performed By: #### 2 4321-2 ####[facility] LABORATORYCLIA [id number] [place] [address] [place] Creatinine [Mass/Vol] 0.65 mg/dL Low 0.73-1.22 [facility] Comment on above: Order Comment: Speci men Type: BLOOD SPECIMENOrdering Facility: [facility] Address: [address] [place] [address] Performed By: #### 2 4321-2 ####[facility] LABORATORYCLIA [id number] [place] [address] [place] Creatinine and Glomerular filtration rate.predicted panel (S/P/Bld) 111 mL/min/1.73m??? Normal >=60 [facility] Comment on above: Order Comment: Doroteo zavala Type: BLOOD SPECIMENOrdering Facility: [facility] Address: [address] [place] [address] Result Comment: [facility] Glomerular Filtration Rate (eGFR) is calculated using the 2020 CKD-EPI creatinine equation. This equation utilizes serum creatinine, sex, and age as parameters. The creatinine assay has traceable calibration to isotope dilution-mass spectrometry. Refer to KDIGO guidelines for clinical interpretation. In patients with unstable renal function, e.g. those with acute kidney injury, the eGFR may not accurately reflect actual GFR. Performed By: #### 2 4321-2 ####[facility] LABORATORYCLIA [id number] [place] [address] [place] Glucose [Mass/Vol] 209 mg/dL High 74-99 [facility] Comment on above: Order Comment: Speccaryn zavala Type: BLOOD SPECIMENOrdering Facility: [facility] Address: [address] [place] [address] Result Comment: The [place] [employer] (ADA) provides guidance for cutoff values for fasting glucose and random glucose. The ADA defines fasting as no caloric intake for at least 8 hours. Fasting plasma glucose results between 100 to 125 mg/dL indicate increased risk for diabetes (prediabetes).Fasting plasma glucose results greater than or equal to 126 mg/dL meet the criteria for diagnosis of diabetes. In the absence of unequivocal hyperglycemia, results should be confirmed by repeat testing. In a patient with classic symptoms of hyperglycemia or hyperglycemic crisis, random plasma glucose results greater than or equal to 200 mg/dL meet the criteria for diagnosis of diabetes.Reference: Standards of Medical Care in Diabetes 2016, [place] [employer]. Diabetes Care. 2016.39(Suppl 1). Performed By: #### 2 4321-2 ####[facility] LABORATORYCLIA [id number] [place] [address] [place] Potassium [Moles/Vol] 4.4 mmol/L Normal 3.7-5.1 [facility] Comment on above: Order Comment: Speci men Type: BLOOD SPECIMENOrdering Facility: [facility] Address: [address] [place] [address] Performed By: #### 2 4321-2 ####[facility] LABORATORYCLIA [id number] [place] [address] [place] Sodium [Moles/Vol] 137 mmol/L Normal 136-144 [facility] Comment on above: Order Comment: Speci men Type: BLOOD SPECIMENOrdering Facility: [facility] Address: [address] [place] [address] Performed By: #### 2 4321-2 ####[facility] LABORATORYCLIA [id number] [place] [address] [place] Urea nitrogen [Mass/Vol] 10 mg/dL Normal 9-24 [facility] Comment on above: Order Comment: Speci men Type: BLOOD SPECIMENOrdering Facility: [facility] Address: [address] [place] [address] Performed By: #### 2 4321-2 ####[facility] LABORATORYCLIA [id number] [place] [address] [place] CBC W Auto Differential pane l (Bld)on 06-06-2023 Basophils (Bld) [#/Vol] 0.06 10*3/uL Normal <0.11 [facility] Comment on above: Order Comment: Speci men Type: BLOOD SPECIMENOrdering Facility: [facility] Address: [address] [place] [address] Performed By: #### 5 7021-8 ####[facility] LABORATORYCLIA [id number] [place] [address] [place] Basophils/100 WBC (Bld) 0.6 % Normal [facility] Comment on above: Order Comment: Speci men Type: BLOOD SPECIMENOrdering Facility: [facility] Address: [address] [place] [address] Performed By: #### 5 7021-8 ####[facility] LABORATORYCLIA [id number] [place] [address] [place] Differential cell count method Nom (Bld) Auto Normal [facility] Comment on above: Order Comment: Speci men Type: BLOOD SPECIMENOrdering Facility: [facility] Address: [address] [place] [address] Performed By: #### 5 7021-8 ####[facility] LABORATORYCLIA [id number] [place] [address] [place] Eosinophils (Bld) [#/Vol] 0.44 10*3/uL Normal <0.46 [facility] Comment on above: Order Comment: Speci men Type: BLOOD SPECIMENOrdering Facility: [facility] Address: [address] [place] [address] Performed By: #### 5 7021-8 ####[facility] LABORATORYCLIA [id number] [place] [address] [place] Eosinophils/100 WBC (Bld) 4.2 % Normal [facility] Comment on above: Order Comment: Speci men Type: BLOOD SPECIMENOrdering Facility: [facility] Address: [address] [place] [address] Performed By: #### 5 7021-8 ####[facility] LABORATORYCLIA [id number] [place] [address] [place] Erythrocyte distribution width (RBC) [Ratio] 21.8 % High 11.5-15.0 [facility] Comment on above: Order Comment: Speci men Type: BLOOD SPECIMENOrdering Facility: [facility] Address: [address] [place] [address] Performed By: #### 5 7021-8 ####[facility] LABORATORYCLIA [id number] [place] [address] [place] Hematocrit (Bld) [Volume fraction] 29.9 % Low 39.0-51.0 [facility] Comment on above: Order Comment: Speci men Type: BLOOD SPECIMENOrdering Facility: [facility] Address: [address] [place] [address] Performed By: #### 5 7021-8 ####[facility] LABORATORYCLIA [id number] [place] [address] [place] Hemoglobin (Bld) [Mass/Vol] 8.5 g/dL Low 13.0-17.0 [facility] Comment on above: Order Comment: Speci men Type: BLOOD SPECIMENOrdering Facility: [facility] Address: [address] [place] [address] Performed By: #### 5 7021-8 ####[facility] LABORATORYCLIA [id number] [place] [address] [place] Immature granulocytes (Bld) [#/Vol] 0.17 10*3/uL High <0.10 [facility] Comment on above: Order Comment: Speci men Type: BLOOD SPECIMENOrdering Facility: [facility] Address: [address] [place] [address] Performed By: #### 5 7021-8 ####[facility] LABORATORYCLIA [id number] [place] [address] [place] Immature granulocytes/100 WBC (Bld) 1.6 % Normal [facility] Comment on above: Order Comment: Speci men Type: BLOOD SPECIMENOrdering Facility: [facility] Address: [address] [place] [address] Performed By: #### 5 7021-8 ####[facility] LABORATORYCLIA [id number] [place] [address] [place] Lymphocytes (Bld) [#/Vol] 2.37 10*3/uL Normal 1.00-4.00 [facility] Comment on above: Order Comment: Speci men Type: BLOOD SPECIMENOrdering Facility: [facility] Address: [address] [place] [address] Performed By: #### 5 7021-8 ####[facility] LABORATORYCLIA [id number] [place] [address] [place] Lymphocytes/100 WBC (Bld) 22.8 % Normal [facility] Comment on above: Order Comment: Speci men Type: BLOOD SPECIMENOrdering Facility: [facility] Address: [address] [place] [address] Performed By: #### 5 7021-8 ####[facility] LABORATORYCLIA [id number] [place] [address] [place] MCH (RBC) [Entitic mass] 22.5 pg Low 26.0-34.0 [facility] Comment on above: Order Comment: Speci men Type: BLOOD SPECIMENOrdering Facility: [facility] Address: [address] [place] [address] Performed By: #### 5 7021-8 ####[facility] LABORATORYCLIA [id number] [place] [address] [place] MCHC (RBC) [Mass/Vol] 28.4 g/dL Low 30.5-36.0 [facility] Comment on above: Order Comment: Speci men Type: BLOOD SPECIMENOrdering Facility: [facility] Address: [address] [place] [address] Performed By: #### 5 7021-8 ####[facility] LABORATORYCLIA [id number] [place] [address] [place] MCV (RBC) [Entitic vol] 79.1 fL Low 80.0-100.0 [facility] Comment on above: Order Comment: Speci men Type: BLOOD SPECIMENOrdering Facility: [facility] Address: [address] [place] [address] Performed By: #### 5 7021-8 ####[facility] LABORATORYCLIA [id number] [place] [address] [place] Monocytes (Bld) [#/Vol] 0.90 10*3/uL High <0.87 [facility] Comment on above: Order Comment: Speci men Type: BLOOD SPECIMENOrdering Facility: [facility] Address: [address] [place] [address] Performed By: #### 5 7021-8 ####[facility] LABORATORYCLIA [id number] [place] [address] [place] Monocytes/100 WBC (Bld) 8.7 % Normal [facility] Comment on above: Order Comment: Speci men Type: BLOOD SPECIMENOrdering Facility: [facility] Address: [address] [place] [address] Performed By: #### 5 7021-8 ####[facility] LABORATORYCLIA [id number] [place] [address] [place] Neutrophils (Bld) [#/Vol] 6.45 10*3/uL Normal 1.45-7.50 [facility] Comment on above: Order Comment: Speci men Type: BLOOD SPECIMENOrdering Facility: [facility] Address: [address] [place] [address] Performed By: #### 5 7021-8 ####[facility] LABORATORYCLIA [id number] [place] [address] [place] Neutrophils/100 WBC (Bld) 62.1 % Normal [facility] Comment on above: Order Comment: Speci men Type: BLOOD SPECIMENOrdering Facility: [facility] Address: [address] [place] [address] Performed By: #### 5 7021-8 ####[facility] LABORATORYCLIA [id number] [place] [address] [place] Nucleated RBC (Bld) [#/Vol] 10*3/uL Normal <0.01 [facility] Comment on above: Order Comment: Speci men Type: BLOOD SPECIMENOrdering Facility: [facility] Address: [address] [place] [address] Performed By: #### 5 7021-8 ####[facility] LABORATORYCLIA [id number] [place] [address] [place] Nucleated RBC/100 WBC (Bld) [Ratio] 0.0 /100 WBC Normal [facility] Comment on above: Order Comment: Speci men Type: BLOOD SPECIMENOrdering Facility: [facility] Address: [address] [place] [address] Performed By: #### 5 7021-8 ####[facility] LABORATORYCLIA [id number] [place] [address] [place] Platelet mean volume (Bld) [Entitic vol] 9.6 fL Normal 9.0-12.7 [facility] Comment on above: Order Comment: Speci men Type: BLOOD SPECIMENOrdering Facility: [facility] Address: [address] [place] [address] Performed By: #### 5 7021-8 ####[facility] LABORATORYCLIA [id number] [place] [address] [place] Platelets (Bld) [#/Vol] 446 10*3/uL High 150-400 [facility] Comment on above: Order Comment: Speci men Type: BLOOD SPECIMENOrdering Facility: [facility] Address: [address] [place] [address] Performed By: #### 5 7021-8 ####[facility] LABORATORYCLIA [id number] [place] [address] [place] RBC (Bld) [#/Vol] 3.78 10*6/uL Low 4.20-6.00 [facility] Comment on above: Order Comment: Speci men Type: BLOOD SPECIMENOrdering Facility: [facility] Address: [address] [place] [address] Performed By: #### 5 7021-8 ####[facility] LABORATORYCLIA [id number] [place] [address] [place] WBC (Bld) [#/Vol] 10.39 10*3/uL Normal 3.70-11.00 [facility] Comment on above: Order Comment: Speci men Type: BLOOD SPECIMENOrdering Facility: [facility] Address: [address] [place] [address] Performed By: #### 5 7021-8 ####[facility] LABORATORYCLIA [id number] [place] [address] [place] Hepatic function 2000 panelo n 01-22-2024 Albumin [Mass/Vol] 3.4 g/dL Low 3.9-4.9 [facility] Comment on above: Order Comment: Speci men Type: BLOOD SPECIMENOrdering Facility: [facility] Address: [address] [place] [address] Performed By: #### 2 4325-3 ####[facility] LABORATORYCLIA [id number] [place] [address] [place] ALP [Catalytic activity/Vol] 117 U/L High 38-113 [facility] Comment on above: Order Comment: Speci men Type: BLOOD SPECIMENOrdering Facility: [facility] Address: [address] [place] [address] Performed By: #### 2 4325-3 ####[facility] LABORATORYCLIA [id number] [place] [address] [place] ALT [Catalytic activity/Vol] 13 U/L Normal 10-54 [facility] Comment on above: Order Comment: Speci men Type: BLOOD SPECIMENOrdering Facility: [facility] Address: [address] [place] [address] Performed By: #### 2 4325-3 ####[facility] LABORATORYCLIA [id number] [place] [address] [place] AST [Catalytic activity/Vol] 17 U/L Normal 14-40 [facility] Comment on above: Order Comment: Speci men Type: BLOOD SPECIMENOrdering Facility: [facility] Address: [address] [place] [address] Performed By: #### 2 4325-3 ####[facility]ORATORYCLIA [id number] [place] [address] [place] Bilirubin [Mass/Vol] 0.2 mg/dL Normal 0.2-1.3 [facility] Comment on above: Order Comment: Speci men Type: BLOOD SPECIMENOrdering Facility: [facility] Address: [address] [place] [address] Performed By: #### 2 4325-3 ####[facility] LABORATORYCLIA [id number] [place] [address] [place] Bilirubin.conjugated [Mass/Vol] mg/dL Normal <0.2 [facility] Comment on above: Order Comment: Speci men Type: BLOOD SPECIMENOrdering Facility: [facility] Address: [address] [place] [address] Performed By: #### 2 4325-3 ####[facility] LABORATORYCLIA [id number] [place] [address] [place] Protein [Mass/Vol] 6.5 g/dL Normal 6.3-8.0 [facility] Comment on above: Order Comment: Speci men Type: BLOOD SPECIMENOrdering Facility: [facility] Address: [address] [place] [address] Performed By: #### 2 4325-3 ####[facility] LABORATORYCLIA [id number] [place] [address] [place] CBC W Auto Differential pane l (Bld)on 06-04-2023 Anisocytosis Ql (Bld) Present Normal [facility] Comment on above: Order Comment: Speci men Type: BLOOD SPECIMENOrdering Facility: [facility] Address: [address] [place] [address] Performed By: #### 5 7021-8 ####[facility] LABORATORYCLIA [id number] [place] [address] [place] Basophils (Bld) [#/Vol] 0.00 10*3/uL Normal <0.11 [facility] Comment on above: Order Comment: Speci men Type: BLOOD SPECIMENOrdering Facility: [facility] Address: [address] [place] [address] Performed By: #### 5 7021-8 ####[facility] LABORATORYCLIA [id number] [place] [address] [place] Basophils/100 WBC (Bld) 0.0 % Normal [facility] Comment on above: Order Comment: Speci men Type: BLOOD SPECIMENOrdering Facility: [facility] Address: [address] [place] [address] Performed By: #### 5 7021-8 ####[facility] LABORATORYCLIA [id number] [place] [address] [place] Differential cell count method Nom (Bld) Manual Normal [facility] Comment on above: Order Comment: Speci men Type: BLOOD SPECIMENOrdering Facility: [facility] Address: [address] [place] [address] Performed By: #### 5 7021-8 ####[facility] LABORATORYCLIA [id number] [place] [address] [place] Eosinophils (Bld) [#/Vol] 0.19 10*3/uL Normal <0.46 [facility] Comment on above: Order Comment: Speci men Type: BLOOD SPECIMENOrdering Facility: [facility] Address: [address] [place] [address] Performed By: #### 5 7021-8 ####[facility] LABORATORYCLIA [id number] [place] [address] [place] Eosinophils/100 WBC (Bld) 2.0 % Normal [facility] Comment on above: Order Comment: Speci men Type: BLOOD SPECIMENOrdering Facility: [facility] Address: [address] [place] [address] Performed By: #### 5 7021-8 ####[facility] LABORATORYCLIA [id number] [place] [address] [place] Erythrocyte distribution width (RBC) [Ratio] 22.0 % High 11.5-15.0 [facility] Comment on above: Order Comment: Speci men Type: BLOOD SPECIMENOrdering Facility: [facility] Address: [address] [place] [address] Performed By: #### 5 7021-8 ####[facility] LABORATORYCLIA [id number] [place] [address] [place] Hematocrit (Bld) [Volume fraction] 28.2 % Low 39.0-51.0 [facility] Comment on above: Order Comment: Speci men Type: BLOOD SPECIMENOrdering Facility: [facility] Address: [address] [place] [address] Performed By: #### 5 7021-8 ####[facility] LABORATORYCLIA [id number] [place] [address] [place] Hemoglobin (Bld) [Mass/Vol] 8.0 g/dL Low 13.0-17.0 [facility] Comment on above: Order Comment: Speci men Type: BLOOD SPECIMENOrdering Facility: [facility] Address: [address] [place] [address] Performed By: #### 5 7021-8 ####[facility] LABORATORYCLIA [id number] [place] [address] [place] Lymphocytes (Bld) [#/Vol] 1.80 10*3/uL Normal 1.00-4.00 [facility] Comment on above: Order Comment: Speci men Type: BLOOD SPECIMENOrdering Facility: [facility] Address: [address] [place] [address] Performed By: #### 5 7021-8 ####[facility] LABORATORYCLIA [id number] [place] [address] [place] Lymphocytes/100 WBC (Bld) 19.0 % Normal [facility] Comment on above: Order Comment: Speci men Type: BLOOD SPECIMENOrdering Facility: [facility] Address: [address] [place] [address] Performed By: #### 5 7021-8 ####[facility] LABORATORYCLIA [id number] [place] [address] [place] MCH (RBC) [Entitic mass] 22.5 pg Low 26.0-34.0 [facility] Comment on above: Order Comment: Speci men Type: BLOOD SPECIMENOrdering Facility: [facility] Address: [address] [place] [address] Performed By: #### 5 7021-8 ####[facility] LABORATORYCLIA [id number] [place] [address] [place] MCHC (RBC) [Mass/Vol] 28.4 g/dL Low 30.5-36.0 [facility] Comment on above: Order Comment: Speci men Type: BLOOD SPECIMENOrdering Facility: [facility] Address: [address] [place] [address] Performed By: #### 5 7021-8 ####[facility] LABORATORYCLIA [id number] [place] [address] [place] MCV (RBC) [Entitic vol] 79.2 fL Low 80.0-100.0 [facility] Comment on above: Order Comment: Speci men Type: BLOOD SPECIMENOrdering Facility: [facility] Address: [address] [place] [address] Performed By: #### 5 7021-8 ####[facility] LABORATORYCLIA [id number] [place] [address] [place] Metamyelocytes/100 WBC (Bld) 3.0 % Normal [facility] Comment on above: Order Comment: Speci men Type: BLOOD SPECIMENOrdering Facility: [facility] Address: [address] [place] [address] Performed By: #### 5 7021-8 ####[facility] LABORATORYCLIA [id number] [place] [address] [place] Monocytes (Bld) [#/Vol] 0.57 10*3/uL Normal <0.87 [facility] Comment on above: Order Comment: Speci men Type: BLOOD SPECIMENOrdering Facility: [facility] Address: [address] [place] [address] Performed By: #### 5 7021-8 ####[facility] LABORATORYCLIA [id number] [place] [address] [place] Monocytes/100 WBC (Bld) 6.0 % Normal [facility] Comment on above: Order Comment: Speci men Type: BLOOD SPECIMENOrdering Facility: [facility] Address: [address] [place] [address] Performed By: #### 5 7021-8 ####[facility] LABORATORYCLIA [id number] [place] [address] [place] MYELO% 2.0 % Normal [facility] Comment on above: Order Comment: Speci men Type: BLOOD SPECIMENOrdering Facility: [facility] Address: [address] [place] [address] Performed By: #### 5 7021-8 ####[facility] LABORATORYCLIA [id number] [place] [address] [place] Neutrophils (Bld) [#/Vol] 6.43 10*3/uL Normal 1.45-7.50 [facility] Comment on above: Order Comment: Speci men Type: BLOOD SPECIMENOrdering Facility: [facility] Address: [address] [place] [address] Performed By: #### 5 7021-8 ####[facility] LABORATORYCLIA [id number] [place] [address] [place] Neutrophils/100 WBC (Bld) 68.0 % Normal [facility] Comment on above: Order Comment: Speci men Type: BLOOD SPECIMENOrdering Facility: [facility] Address: [address] [place] [address] Performed By: #### 5 7021-8 ####[facility] LABORATORYCLIA [id number] [place] [address] [place] Nucleated RBC (Bld) [#/Vol] 0.09 10*3/uL High <0.01 [facility] Comment on above: Order Comment: Speci men Type: BLOOD SPECIMENOrdering Facility: [facility] Address: [address] [place] [address] Performed By: #### 5 7021-8 ####[facility] LABORATORYCLIA [id number] [place] [address] [place] Nucleated RBC/100 WBC (Bld) [Ratio] 1.0 /100 WBC Normal [facility] Comment on above: Order Comment: Speci men Type: BLOOD SPECIMENOrdering Facility: [facility] Address: [address] [place] [address] Performed By: #### 5 7021-8 ####[facility] LABORATORYCLIA [id number] [place] [address] [place] Platelet mean volume (Bld) [Entitic vol] 9.4 fL Normal 9.0-12.7 [facility] Comment on above: Order Comment: Speci men Type: BLOOD SPECIMENOrdering Facility: [facility] Address: [address] [place] [address] Performed By: #### 5 7021-8 ####[facility] LABORATORYCLIA [id number] [place] [address] [place] Platelets (Bld) [#/Vol] 431 10*3/uL High 150-400 [facility] Comment on above: Order Comment: Speci men Type: BLOOD SPECIMENOrdering Facility: [facility] Address: [address] [place] [address] Performed By: #### 5 7021-8 ####[facility] LABORATORYCLIA [id number] [place] [address] [place] Platelets Estimate (Bld) [#/Vol] Increased Normal [facility] Comment on above: Order Comment: Speci men Type: BLOOD SPECIMENOrdering Facility: [facility] Address: [address] [place] [address] Performed By: #### 5 7021-8 ####[facility] LABORATORYCLIA [id number] [place] [address] [place] Polychromasia LM Ql (Bld) Slight Normal [facility] Comment on above: Order Comment: Speci men Type: BLOOD SPECIMENOrdering Facility: [facility] Address: [address] [place] [address] Performed By: #### 5 7021-8 ####[facility] LABORATORYCLIA [id number] [place] [address] [place] RBC (Bld) [#/Vol] 3.56 10*6/uL Low 4.20-6.00 [facility] Comment on above: Order Comment: Speci men Type: BLOOD SPECIMENOrdering Facility: [facility] Address: [address] [place] [address] Performed By: #### 5 7021-8 ####[facility] LABORATORYCLIA [id number] [place] [address] [place] RED CELL MORPH Reviewed: see result s of individual morphologies Normal [facility] Comment on above: Order Comment: Speci men Type: BLOOD SPECIMENOrdering Facility: [facility] Address: [address] [place] [address] Performed By: #### 5 7021-8 ####[facility] LABORATORYCLIA [id number] [place] [address] [place] WBC (Bld) [#/Vol] 9.46 10*3/uL Normal 3.70-11.00 [facility] Comment on above: Order Comment: Speci men Type: BLOOD SPECIMENOrdering Facility: [facility] Address: [address] [place] [address] Performed By: #### 5 7021-8 ####[facility] LABORATORYCLIA [id number] [place] [address] [place] WBC Left Shift Ql (Bld) Present Normal [facility] Comment on above: Order Comment: Speci men Type: BLOOD SPECIMENOrdering Facility: [facility] Address: [address] [place] [address] Performed By: #### 5 7021-8 ####[facility] LABORATORYCLIA [id number] [place] [address] [place] Comprehensive metabolic 2000 panelon 06-04-2023 Albumin [Mass/Vol] 3.1 g/dL Low 3.9-4.9 [facility] Comment on above: Order Comment: Speci men Type: BLOOD SPECIMENOrdering Facility: [facility] Address: [address] [place] [address] Performed By: #### 2 4323-8 ####[facility] LABORATORYCLIA [id number] [place] [address] [place] ALP [Catalytic activity/Vol] 125 U/L High 38-113 [facility] Comment on above: Order Comment: Speci men Type: BLOOD SPECIMENOrdering Facility: [facility] Address: [address] [place] [address] Performed By: #### 2 4323-8 ####[facility] LABORATORYCLIA [id number] [place] [address] [place] ALT [Catalytic activity/Vol] 11 U/L Normal 10-54 [facility] Comment on above: Order Comment: Speci men Type: BLOOD SPECIMENOrdering Facility: [facility] Address: [address] [place] [address] Performed By: #### 2 4323-8 ####[facility] LABORATORYCLIA [id number] [place] [address] [place] Anion gap [Moles/Vol] 13 mmol/L Normal 9-18 [facility] Comment on above: Order Comment: Speci men Type: BLOOD SPECIMENOrdering Facility: [facility] Address: [address] [place] [address] Performed By: #### 2 4323-8 ####[facility] LABORATORYCLIA [id number] [place] [address] [place] AST [Catalytic activity/Vol] 18 U/L Normal 14-40 [facility] Comment on above: Order Comment: Speci men Type: BLOOD SPECIMENOrdering Facility: [facility] Address: [address] [place] [address] Performed By: #### 2 4323-8 ####[facility] LABORATORYCLIA [id number] [place] [address] [place] Bilirubin [Mass/Vol] 0.2 mg/dL Normal 0.2-1.3 [facility] Comment on above: Order Comment: Speci men Type: BLOOD SPECIMENOrdering Facility: [facility] Address: [address] [place] [address] Performed By: #### 2 4323-8 ####[facility] LABORATORYCLIA [id number] [place] [address] [place] Calcium [Mass/Vol] 8.8 mg/dL Normal 8.5-10.2 [facility] Comment on above: Order Comment: Speci men Type: BLOOD SPECIMENOrdering Facility: [facility] Address: [address] [place] [address] Performed By: #### 2 4323-8 ####[facility] LABORATORYCLIA [id number] [place] [address] [place] Chloride [Moles/Vol] 98 mmol/L Normal 97-105 [facility] Comment on above: Order Comment: Speci men Type: BLOOD SPECIMENOrdering Facility: [facility] Address: [address] [place] [address] Performed By: #### 2 4323-8 ####[facility] LABORATORYCLIA [id number] [place] [address] [place] CO2 [Moles/Vol] 26 mmol/L Normal 22-30 [facility] Comment on above: Order Comment: Speci men Type: BLOOD SPECIMENOrdering Facility: [facility] Address: [address] [place] [address] Performed By: #### 2 4323-8 ####[facility] LABORATORYCLIA [id number] [place] [address] [place] Creatinine [Mass/Vol] 0.56 mg/dL Low 0.73-1.22 [facility] Comment on above: Order Comment: Speci men Type: BLOOD SPECIMENOrdering Facility: [facility] Address: [address] [place] [address] Performed By: #### 2 4323-8 ####[facility] LABORATORYCLIA [id number] [place] [address] [place] Creatinine and Glomerular filtration rate.predicted panel (S/P/Bld) 116 mL/min/1.73m??? Normal >=60 [facility] Comment on above: Order Comment: Speci men Type: BLOOD SPECIMENOrdering Facility: [facility] Address: [address] [place] [address] Result Comment: [facility] Glomerular Filtration Rate (eGFR) is calculated using the 2020 CKD-EPI creatinine equation. This equation utilizes serum creatinine, sex, and age as parameters. The creatinine assay has traceable calibration to isotope dilution-mass spectrometry. Refer to KDIGO guidelines for clinical interpretation. In patients with unstable renal function, e.g. those with acute kidney injury, the eGFR may not accurately reflect actual GFR. Performed By: #### 2 4323-8 ####[facility] LABORATORYCLIA [id number] [place] [address] [place] Glucose [Mass/Vol] 159 mg/dL High 74-99 [facility] Comment on above: Order Comment: Doroteo zavala Type: BLOOD SPECIMENOrdering Facility: [facility] Address: [address] [place] [address] Result Comment: The [place] [employer] (ADA) provides guidance for cutoff values for fasting glucose and random glucose. The ADA defines fasting as no caloric intake for at least 8 hours. Fasting plasma glucose results between 100 to 125 mg/dL indicate increased risk for diabetes (prediabetes).Fasting plasma glucose results greater than or equal to 126 mg/dL meet the criteria for diagnosis of diabetes. In the absence of unequivocal hyperglycemia, results should be confirmed by repeat testing. In a patient with classic symptoms of hyperglycemia or hyperglycemic crisis, random plasma glucose results greater than or equal to 200 mg/dL meet the criteria for diagnosis of diabetes.Reference: Standards of Medical Care in Diabetes 2016, [place] [employer]. Diabetes Care. 2016.39(Suppl 1). Performed By: #### 2 4323-8 ####[facility] LABORATORYCLIA [id number] [place] [address] [place] Potassium [Moles/Vol] 4.6 mmol/L Normal 3.7-5.1 [facility] Comment on above: Order Comment: Doroteo zavala Type: BLOOD SPECIMENOrdering Facility: [facility] Address: [address] [place] [address] Performed By: #### 2 4323-8 ####[facility] LABORATORYCLIA [id number] [place] [address] [place] Protein [Mass/Vol] 6.3 g/dL Normal 6.3-8.0 [facility] Comment on above: Order Comment: Speci men Type: BLOOD SPECIMENOrdering Facility: [facility] Address: [address] [place] [address] Performed By: #### 2 4323-8 ####[facility] LABORATORYCLIA [id number] [place] [address] [place] Sodium [Moles/Vol] 137 mmol/L Normal 136-144 [facility] Comment on above: Order Comment: Speci men Type: BLOOD SPECIMENOrdering Facility: [facility] Address: [address] [place] [address] Performed By: #### 2 4323-8 ####[facility] LABORATORYCLIA [id number] [place] [address] [place] Urea nitrogen [Mass/Vol] 10 mg/dL Normal 9-24 [facility] Comment on above: Order Comment: Speci men Type: BLOOD SPECIMENOrdering Facility: [facility] Address: [address] [place] [address] Performed By: #### 2 4323-8 ####[facility] LABORATORYCLIA [id number] [place] [address] [place] Hepatic function 2000 panelo n 05-31-2023 Albumin [Mass/Vol] 3.2 g/dL Low 3.9-4.9 [facility] Comment on above: Order Comment: Speci men Type: BLOOD SPECIMENOrdering Facility: [facility] Address: [address] [place] [address] Performed By: #### 2 4325-3 ####[facility] LABORATORYCLIA [id number] [place] [address] [place] ALP [Catalytic activity/Vol] 171 U/L High 38-113 [facility] Comment on above: Order Comment: Speci men Type: BLOOD SPECIMENOrdering Facility: [facility] Address: [address] [place] [address] Performed By: #### 2 4325-3 ####[facility] LABORATORYCLIA [id number] [place] [address] [place] ALT [Catalytic activity/Vol] 21 U/L Normal 10-54 [facility] Comment on above: Order Comment: Speci men Type: BLOOD SPECIMENOrdering Facility: [facility] Address: [address] [place] [address] Performed By: #### 2 4325-3 ####[facility] LABORATORYCLIA [id number] [place] [address] [place] AST [Catalytic activity/Vol] 28 U/L Normal 14-40 [facility] Comment on above: Order Comment: Speci men Type: BLOOD SPECIMENOrdering Facility: [facility] Address: [address] [place] [address] Performed By: #### 2 4325-3 ####[facility] LABORATORYCLIA [id number] [place] [address] [place] Bilirubin [Mass/Vol] 0.3 mg/dL Normal 0.2-1.3 [facility] Comment on above: Order Comment: Speci men Type: BLOOD SPECIMENOrdering Facility: [facility] Address: [address] [place] [address] Performed By: #### 2 4325-3 ####[facility] LABORATORYCLIA [id number] [place] [address] [place] Bilirubin.conjugated [Mass/Vol] mg/dL Normal <0.2 [facility] Comment on above: Order Comment: Speci men Type: BLOOD SPECIMENOrdering Facility: [facility] Address: [address] [place] [address] Performed By: #### 2 4325-3 ####[facility] LABORATORYCLIA [id number] [place] [address] [place] Protein [Mass/Vol] 6.2 g/dL Low 6.3-8.0 [facility] Comment on above: Order Comment: Speci men Type: BLOOD SPECIMENOrdering Facility: [facility] Address: [address] [place] [address] Performed By: #### 2 4325-3 ####[facility] LABORATORYCLIA [id number] [place] [address] [place] Lipase SerPl-cCncon 05-31-19 24 Lipase [Catalytic activity/Vol] 31 U/L Normal 16-61 [facility] Comment on above: Order Comment: Speci men Type: BLOOD SPECIMENOrdering Facility: [facility] Address: [address] [place] [address] Performed By: #### 3 040-3 ####[facility] LABORATORYCLIA [id number] [place] [address] [place] Basic metabolic 2000 panelon 05-30-2023 Anion gap [Moles/Vol] 14 mmol/L Normal 9-18 [facility] Comment on above: Order Comment: Speci men Type: BLOOD SPECIMENOrdering Facility: [facility] Address: [address] [place] [address] Performed By: #### 2 4321-2 ####[facility] LABORATORYCLIA [id number] [place] [address] [place] Calcium [Mass/Vol] 8.1 mg/dL Low 8.5-10.2 [facility] Comment on above: Order Comment: Speci men Type: BLOOD SPECIMENOrdering Facility: [facility] Address: [address] [place] [address] Performed By: #### 2 4321-2 ####[facility] LABORATORYCLIA [id number] [place] [address] [place] Chloride [Moles/Vol] 100 mmol/L Normal 97-105 [facility] Comment on above: Order Comment: Speci men Type: BLOOD SPECIMENOrdering Facility: [facility] Address: [address] [place] [address] Performed By: #### 2 4321-2 ####[facility] LABORATORYCLIA [id number] [place] [address] [place] CO2 [Moles/Vol] 23 mmol/L Normal 22-30 [facility] Comment on above: Order Comment: Speci men Type: BLOOD SPECIMENOrdering Facility: [facility] Address: [address] [place] [address] Performed By: #### 2 4321-2 ####[facility] LABORATORYCLIA [id number] [place] [address] [place] Creatinine [Mass/Vol] 0.65 mg/dL Low 0.73-1.22 [facility] Comment on above: Order Comment: Speci men Type: BLOOD SPECIMENOrdering Facility: [facility] Address: [address] [place] [address] Performed By: #### 2 4321-2 ####[facility] LABORATORYCLIA [id number] [place] [address] [place] Creatinine and Glomerular filtration rate.predicted panel (S/P/Bld) 111 mL/min/1.73m??? Normal >=60 [facility] Comment on above: Order Comment: Speci men Type: BLOOD SPECIMENOrdering Facility: [facility] Address: [address] [place] [address] Result Comment: [facility] Glomerular Filtration Rate (eGFR) is calculated using the 2020 CKD-EPI creatinine equation. This equation utilizes serum creatinine, sex, and age as parameters. The creatinine assay has traceable calibration to isotope dilution-mass spectrometry. Refer to KDIGO guidelines for clinical interpretation. In patients with unstable renal function, e.g. those with acute kidney injury, the eGFR may not accurately reflect actual GFR. Performed By: #### 2 4321-2 ####[facility]CRE LABORATORYCLIA [id number] [place] [address] [place] Glucose [Mass/Vol] 216 mg/dL High 74-99 [facility] Comment on above: Order Comment: Speci men Type: BLOOD SPECIMENOrdering Facility: [facility] Address: [address] [place] [address] Result Comment: The [place] Diabetes Association (ADA) provides guidance for cutoff values for fasting glucose and random glucose. The ADA defines fasting as no caloric intake for at least 8 hours. Fasting plasma glucose results between 100 to 125 mg/dL indicate increased risk for diabetes (prediabetes).Fasting plasma glucose results greater than or equal to 126 mg/dL meet the criteria for diagnosis of diabetes. In the absence of unequivocal hyperglycemia, results should be confirmed by repeat testing. In a patient with classic symptoms of hyperglycemia or hyperglycemic crisis, random plasma glucose results greater than or equal to 200 mg/dL meet the criteria for diagnosis of diabetes.Reference: Standards of Medical Care in Diabetes 2016, [place] [employer]. Diabetes Care. 2016.39(Suppl 1). Performed By: #### 2 4321-2 ####[facility]ORATORYCLIA [id number] [place] [address] [place] Potassium [Moles/Vol] 4.1 mmol/L Normal 3.7-5.1 [facility] Comment on above: Order Comment: Doroteo zavala Type: BLOOD SPECIMENOrdering Facility: [facility] Address: [address] [place] [address] Performed By: #### 2 4321-2 ####[facility] LABORATORYCLIA [id number] [place] [address] [place] Sodium [Moles/Vol] 137 mmol/L Normal 136-144 [facility] Comment on above: Order Comment: Doroteo zavala Type: BLOOD SPECIMENOrdering Facility: [facility] Address: [address] [place] [address] Performed By: #### 2 4321-2 ####[facility] LABORATORYCLIA [id number] [place] [address] [place] Urea nitrogen [Mass/Vol] 11 mg/dL Normal 9-24 [facility] Comment on above: Order Comment: Doroteo zavala Type: BLOOD SPECIMENOrdering Facility: [facility] Address: [address] [place] [address] Performed By: #### 2 4321-2 ####[facility] LABORATORYCLIA [id number] [place] [address] [place] CBC panel Auto (Bld)on 05-30 Erythrocyte distribution width (RBC) [Ratio] 21.6 % High 11.5-15.0 [facility] Comment on above: Order Comment: Speci men Type: BLOOD SPECIMENOrdering Facility: [facility] Address: [address] [place] [address] Performed By: #### 5 8410-2 ####[facility] LABORATORYCLIA [id number] [place] [address] [place] Hematocrit (Bld) [Volume fraction] 28.7 % Low 39.0-51.0 [facility] Comment on above: Order Comment: Speci men Type: BLOOD SPECIMENOrdering Facility: [facility] Address: [address] [place] [address] Performed By: #### 5 8410-2 ####[facility]CRE LABORATORYCLIA [id number] [place] [address] [place] Hemoglobin (Bld) [Mass/Vol] 8.3 g/dL Low 13.0-17.0 [facility] Comment on above: Order Comment: Speci men Type: BLOOD SPECIMENOrdering Facility: [facility] Address: [address] [place] [address] Performed By: #### 5 8410-2 ####[facility] LABORATORYCLIA [id number] [place] [address] [place] MCH (RBC) [Entitic mass] 23.4 pg Low 26.0-34.0 [facility] Comment on above: Order Comment: Speci men Type: BLOOD SPECIMENOrdering Facility: [facility] Address: [address] [place] [address] Performed By: #### 5 8410-2 ####[facility] ESTATESCREST LABORATORYCLIA [id number] [place] [address] [place] MCHC (RBC) [Mass/Vol] 28.9 g/dL Low 30.5-36.0 [facility] Comment on above: Order Comment: Speci men Type: BLOOD SPECIMENOrdering Facility: [facility] Address: [address] [place] [address] Performed By: #### 5 8410-2 ####[facility]STAT[facility]CREST LABORATORYCLIA [id number] [place] [address] [place] MCV (RBC) [Entitic vol] 81.1 fL Normal 80.0-100.0 [facility] Comment on above: Order Comment: Speci men Type: BLOOD SPECIMENOrdering Facility: [facility] Address: [address] [place] [address] Performed By: #### 5 8410-2 ####[facility] ESTATESCREST LABORATORYCLIA [id number] [place] [address] [place] Nucleated RBC (Bld) [#/Vol] 10*3/uL Normal <0.01 [facility] Comment on above: Order Comment: Speci men Type: BLOOD SPECIMENOrdering Facility: [facility] Address: [address] [place] [address] Performed By: #### 5 8410-2 ####[facility] LABORATORYCLIA [id number] [place] [address] [place] Platelet mean volume (Bld) [Entitic vol] 9.7 fL Normal 9.0-12.7 [facility] Comment on above: Order Comment: Speci men Type: BLOOD SPECIMENOrdering Facility: [facility] Address: [address] [place] [address] Performed By: #### 5 8410-2 ####[facility]CRE[facility] LABORATORYCLIA [id number] [place] [address] [place] Platelets (Bld) [#/Vol] 337 10*3/uL Normal 150-400 [facility] Comment on above: Order Comment: Speci men Type: BLOOD SPECIMENOrdering Facility: [facility] Address: [address] [place] [address] Performed By: #### 5 8410-2 ####[facility]CREST LABORATORYCLIA [id number] [place] [address] [place] RBC (Bld) [#/Vol] 3.54 10*6/uL Low 4.20-6.00 [facility] Comment on above: Order Comment: Speci men Type: BLOOD SPECIMENOrdering Facility: [facility] Address: [address] [place] [address] Performed By: #### 5 8410-2 ####[facility]ESLAISHA LABORATORYCLIA [id number] [place] [address] [place] WBC (Bld) [#/Vol] 9.62 10*3/uL Normal 3.70-11.00 [facility] Comment on above: Order Comment: Speci men Type: BLOOD SPECIMENOrdering Facility: [facility] Address: [address] [place] [address] Performed By: #### 5 8410-2 ####[facility]LA[facility] LABORATORYCLIA [id number] [place] [address] [place] Magnesium SerPl-mCncon 05-30 Magnesium [Mass/Vol] 1.7 mg/dL Normal 1.7-2.3 [facility] Comment on above: Order Comment: Speci men Type: BLOOD SPECIMENOrdering Facility: [facility] Address: [address] [place] [address] Performed By: #### 1 9123-9 ####[facility]LA[facility] LABORATORYCLIA [id number] [place] [address] [place] CBC panel Auto (Bld)on 05-29 Erythrocyte distribution width (RBC) [Ratio] 20.3 % High 11.5 - 15.0 % [facility] Hematocrit (Bld) [Volume fraction] 26.2 % Low 39.0 - 51.0 % [facility] Hemoglobin (Bld) [Mass/Vol] 7.5 g/dL Low 13.0 - 17.0 g/dL [facility] MCH (RBC) [Entitic mass] 22.7 pg Low 26.0 - 34.0 pg [facility] MCHC (RBC) [Mass/Vol] 28.6 g/dL Low 30.5 - 36.0 g/dL [facility] MCV (RBC) [Entitic vol] 79.4 fL Low 80.0 - 100.0 fL [facility] Nucleated RBC (Bld) [#/Vol] <0.01 k/uL [facility] Platelet mean volume (Bld) [Entitic vol] 9.4 fL 9.0 - 12.7 fL [facility] Platelets (Bld) [#/Vol] 329 10*3/uL 150 - 400 k/uL [facility] RBC (Bld) [#/Vol] 3.30 10*6/uL Low 4.20 - 6.0 0 m/uL [facility] WBC (Bld) [#/Vol] 6.65 10*3/uL 3.70 - 11.00 k/uL [facility] Erythrocyte distribution width (RBC) [Ratio] 20.3 % High 11.5-15.0 [facility] Comment on above: Order Comment: Doroteo zavala Type: BLOOD SPECIMEN [facility] Address: [address] [place] [address] Performed By: #### 1 988-5 #### [facility] CLIA [id number] [address] [place] [address] [place] Hematocrit (Bld) [Volume fraction] 26.2 % Low 39.0-51.0 [facility] Comment on above: Order Comment: Doroteo zavala Type: BLOOD SPECIMEN [facility] Address: [address] [place] [address] Performed By: #### 1 988-5 #### [facility] CLIA [id number] [address] [place] [address] [place] Hemoglobin (Bld) [Mass/Vol] 7.5 g/dL Low 13.0-17.0 [facility] Comment on above: Order Comment: Doroteo zavala Type: BLOOD SPECIMEN [facility] Address: [address] [place] [address] Performed By: #### 1 988-5 #### [facility] CLIA [id number] [address] [place] [address] [place] MCH (RBC) [Entitic mass] 22.7 pg Low 26.0-34.0 [facility] Comment on above: Order Comment: Speci men Type: BLOOD SPECIMEN [facility] Address: [address] [place] [address] Performed By: #### 1 988-5 #### [facility] CLIA [id number] [address] [place] [address] [place] MCHC (RBC) [Mass/Vol] 28.6 g/dL Low 30.5-36.0 [facility] Comment on above: Order Comment: Speci men Type: BLOOD SPECIMEN [facility] Address: [address] [place] [address] Performed By: #### 1 988-5 #### [facility] CLIA [id number] [address] [place] [address] [place] MCV (RBC) [Entitic vol] 79.4 fL Low 80.0-100.0 [facility] Comment on above: Order Comment: Speci men Type: BLOOD SPECIMEN [facility] Address: [address] [place] [address] Performed By: #### 1 988-5 #### [facility] CLIA [id number] [address] [place] [address] [place] Nucleated RBC (Bld) [#/Vol] 10*3/uL Normal <0.01 [facility] Comment on above: Order Comment: Speci men Type: BLOOD SPECIMEN [facility] Address: [address] [place] [address] Performed By: #### 1 988-5 #### [facility] CLIA [id number] [address] [place] [address] [place] Platelet mean volume (Bld) [Entitic vol] 9.4 fL Normal 9.0-12.7 [facility] Comment on above: Order Comment: Speci men Type: BLOOD SPECIMEN [facility] Address: [address] [place] [address] Performed By: #### 1 988-5 #### [facility] CLIA [id number] [address] [place] [address] [place] Platelets (Bld) [#/Vol] 329 10*3/uL Normal 150-400 [facility] Comment on above: Order Comment: Speci men Type: BLOOD SPECIMEN [facility] Address: [address] [place] [address] Performed By: #### 1 988-5 #### [facility] CLIA [id number] [address] [place] [address] [place] RBC (Bld) [#/Vol] 3.30 10*6/uL Low 4.20-6.00 [facility] Comment on above: Order Comment: Speci men Type: BLOOD SPECIMEN [facility] Address: [address] [place] [address] Performed By: #### 1 988-5 #### [facility] CLIA [id number] [address] [place] [address] [place] WBC (Bld) [#/Vol] 6.65 10*3/uL Normal 3.70-11.00 [facility] Comment on above: Order Comment: Speci men Type: BLOOD SPECIMEN [facility] Address: [address] [place] [address] Performed By: #### 1 988-5 #### [facility] CLIA [id number] [address] [place] [address] [place] Magnesium SerPl-mCncon 05-29 Magnesium [Mass/Vol] 1.4 mg/dL Low 1.7-2.3 [facility] Comment on above: Order Comment: Speci men Type: BLOOD SPECIMENOrdering Facility: [facility] Address: [address] [place] [address] Performed By: #### 1 9123-9 ####[facility]ORATORYCLIA [id number] [place] [address] [place] Renal function 2000 panelon 05-29-2023 Albumin [Mass/Vol] 3.0 g/dL Low 3.9-4.9 [facility] Comment on above: Order Comment: Speci men Type: BLOOD SPECIMENOrdering Facility: [facility] Address: [address] [place] [address] Performed By: #### 2 4362-6 ####[facility]ORATORYCLIA [id number] [place] [address] [place] Anion gap [Moles/Vol] 14 mmol/L Normal 9-18 [facility] Comment on above: Order Comment: Speci men Type: BLOOD SPECIMENOrdering Facility: [facility] Address: [address] [place] [address] Performed By: #### 2 4362-6 ####[facility]ORATORYCLIA [id number] [place] [address] [place] Calcium [Mass/Vol] 8.0 mg/dL Low 8.5-10.2 [facility] Comment on above: Order Comment: Speci men Type: BLOOD SPECIMENOrdering Facility: [facility] Address: [address] [place] [address] Performed By: #### 2 4362-6 ####[facility]ORATORYCLIA [id number] [place] [address] [place] Chloride [Moles/Vol] 105 mmol/L Normal 97-105 [facility] Comment on above: Order Comment: Speci men Type: BLOOD SPECIMENOrdering Facility: [facility] Address: [address] [place] [address] Performed By: #### 2 4362-6 ####[facility]ORATORYCLIA [id number] [place] [address] [place] CO2 [Moles/Vol] 22 mmol/L Normal 22-30 [facility] Comment on above: Order Comment: Speci men Type: BLOOD SPECIMENOrdering Facility: [facility] Address: [address] [place] [address] Performed By: #### 2 4362-6 ####[facility]ORATORYCLIA [id number] [place] [address] [place] Creatinine [Mass/Vol] 0.76 mg/dL Normal 0.73-1.22 [facility] Comment on above: Order Comment: Doroteo zavala Type: BLOOD SPECIMENOrdering Facility: [facility] Address: [address] [place] [address] Performed By: #### 2 4362-6 ####[facility] LABORATORYCLIA [id number] [place] [address] [place] Creatinine and Glomerular filtration rate.predicted panel (S/P/Bld) 106 mL/min/1.73m??? Normal >=60 [facility] Comment on above: Order Comment: Doroteo zavala Type: BLOOD SPECIMENOrdering Facility: [facility] Address: [address] [place] [address] Result Comment: [facility] Glomerular Filtration Rate (eGFR) is calculated using the 2020 CKD-EPI creatinine equation. This equation utilizes serum creatinine, sex, and age as parameters. The creatinine assay has traceable calibration to isotope dilution-mass spectrometry. Refer to KDIGO guidelines for clinical interpretation. In patients with unstable renal function, e.g. those with acute kidney injury, the eGFR may not accurately reflect actual GFR. Performed By: #### 2 4362-6 ####[facility]ORATORYCLIA [id number] [place] [address] [place] Glucose [Mass/Vol] 137 mg/dL High 74-99 [facility] Comment on above: Order Comment: Doroteo zavala Type: BLOOD SPECIMENOrdering Facility: [facility] Address: [address] [place] [address] Result Comment: The [place] Diabetes Association (ADA) provides guidance for cutoff values for fasting glucose and random glucose. The ADA defines fasting as no caloric intake for at least 8 hours. Fasting plasma glucose results between 100 to 125 mg/dL indicate increased risk for diabetes (prediabetes).Fasting plasma glucose results greater than or equal to 126 mg/dL meet the criteria for diagnosis of diabetes. In the absence of unequivocal hyperglycemia, results should be confirmed by repeat testing. In a patient with classic symptoms of hyperglycemia or hyperglycemic crisis, random plasma glucose results greater than or equal to 200 mg/dL meet the criteria for diagnosis of diabetes.Reference: Standards of Medical Care in Diabetes 2016, [place] [employer]. Diabetes Care. 2016.39(Suppl 1). Performed By: #### 2 4362-6 ####[facility]ORATORYCLIA [id number] [place] [address] [place] Phosphate [Mass/Vol] 3.5 mg/dL Normal 2.7-4.8 [facility] Comment on above: Order Comment: Speci men Type: BLOOD SPECIMENOrdering Facility: [facility] Address: [address] [place] [address] Performed By: #### 2 4362-6 ####[facility]ORATORYCLIA [id number] [place] [address] [place] Potassium [Moles/Vol] 4.2 mmol/L Normal 3.7-5.1 [facility] Comment on above: Order Comment: Doroteo zavala Type: BLOOD SPECIMENOrdering Facility: [facility] Address: [address] [place] [address] Performed By: #### 2 4362-6 ####[facility]ORATORYCLIA [id number] [place] [address] [place] Sodium [Moles/Vol] 141 mmol/L Normal 136-144 [facility] Comment on above: Order Comment: Doroteo zavala Type: BLOOD SPECIMENOrdering Facility: [facility] Address: [address] [place] [address] Performed By: #### 2 4362-6 ####[facility]ORATORYCLIA [id number] [place] [address] [place] Urea nitrogen [Mass/Vol] 13 mg/dL Normal 9-24 [facility] Comment on above: Order Comment: Salinai lucas Type: BLOOD SPECIMENOrdering Facility: [facility] Address: [address] [place] [address] Performed By: #### 2 4362-6 ####[facility]ORATORYCLIA [id number] [place] [address] [place] CBC panel Auto (Bld)on 05-28 Erythrocyte distribution width (RBC) [Ratio] 19.9 % High 11.5-15.0 [facility] Comment on above: Order Comment: Speci men Type: BLOOD SPECIMENOrdering Facility: [facility] Address: [address] [place] [address] Performed By: #### 5 8410-2 ####[facility] LABORATORYCLIA [id number] [place] [address] [place] Hematocrit (Bld) [Volume fraction] 21.9 % Low 39.0-51.0 [facility] Comment on above: Order Comment: Speci men Type: BLOOD SPECIMENOrdering Facility: [facility] Address: [address] [place] [address] Performed By: #### 5 8410-2 ####[facility] LABORATORYCLIA [id number] [place] [address] [place] Hemoglobin (Bld) [Mass/Vol] 6.1 g/dL Low 13.0-17.0 [facility] Comment on above: Order Comment: Speci men Type: BLOOD SPECIMENOrdering Facility: [facility] Address: [address] [place] [address] Performed By: #### 5 8410-2 ####[facility] LABORATORYCLIA [id number] [place] [address] [place] MCH (RBC) [Entitic mass] 21.6 pg Low 26.0-34.0 [facility] Comment on above: Order Comment: Speci men Type: BLOOD SPECIMENOrdering Facility: [facility] Address: [address] [place] [address] Performed By: #### 5 8410-2 ####[facility]CRE[facility] LABORATORYCLIA [id number] [place] [address] [place] MCHC (RBC) [Mass/Vol] 27.9 g/dL Low 30.5-36.0 [facility] Comment on above: Order Comment: Speci men Type: BLOOD SPECIMENOrdering Facility: [facility] Address: [address] [place] [address] Performed By: #### 5 8410-2 ####[facility] LABORATORYCLIA [id number] [place] [address] [place] MCV (RBC) [Entitic vol] 77.7 fL Low 80.0-100.0 [facility] Comment on above: Order Comment: Speci men Type: BLOOD SPECIMENOrdering Facility: [facility] Address: [address] [place] [address] Performed By: #### 5 8410-2 ####[facility]ORATORYCLIA [id number] [place] [address] [place] Nucleated RBC (Bld) [#/Vol] 10*3/uL Normal <0.01 [facility] Comment on above: Order Comment: Speci men Type: BLOOD SPECIMENOrdering Facility: [facility] Address: [address] [place] [address] Performed By: #### 5 8410-2 ####[facility]ORATORYCLIA [id number] [place] [address] [place] Platelet mean volume (Bld) [Entitic vol] 10.1 fL Normal 9.0-12.7 [facility] Comment on above: Order Comment: Speci men Type: BLOOD SPECIMENOrdering Facility: [facility] Address: [address] [place] [address] Performed By: #### 5 8410-2 ####[facility] LABORATORYCLIA [id number] [place] [address] [place] Platelets (Bld) [#/Vol] 321 10*3/uL Normal 150-400 [facility] Comment on above: Order Comment: Speci men Type: BLOOD SPECIMENOrdering Facility: [facility] Address: [address] [place] [address] Performed By: #### 5 8410-2 ####[facility] LABORATORYCLIA [id number] [place] [address] [place] RBC (Bld) [#/Vol] 2.82 10*6/uL Low 4.20-6.00 [facility] Comment on above: Order Comment: Speci men Type: BLOOD SPECIMENOrdering Facility: [facility] Address: [address] [place] [address] Performed By: #### 5 8410-2 ####[facility]ORATORYCLIA [id number] [place] [address] [place] WBC (Bld) [#/Vol] 5.86 10*3/uL Normal 3.70-11.00 [facility] Comment on above: Order Comment: Speci men Type: BLOOD SPECIMENOrdering Facility: [facility] Address: [address] [place] [address] Performed By: #### 5 8410-2 ####[facility]ESPHILIP LABORATORYCLIA [id number] [place] [address] [place] Magnesium SerPl-mCncon 05-28 Magnesium [Mass/Vol] 1.4 mg/dL Low 1.7-2.3 [facility] Comment on above: Order Comment: Speci men Type: BLOOD SPECIMENOrdering Facility: [facility] Address: [address] [place] [address] Performed By: #### 1 9123-9 ####[facility] LABORATORYCLIA [id number] [place] [address] [place] Renal function 2000 panelon 05-28-2023 Albumin [Mass/Vol] 2.9 g/dL Low 3.9-4.9 [facility] Comment on above: Order Comment: Speci men Type: BLOOD SPECIMENOrdering Facility: [facility] Address: [address] [place] [address] Performed By: #### 2 4362-6 ####[facility] LABORATORYCLIA [id number] [place] [address] [place] Anion gap [Moles/Vol] 13 mmol/L Normal 9-18 [facility] Comment on above: Order Comment: Speci men Type: BLOOD SPECIMENOrdering Facility: [facility] Address: [address] [place] [address] Performed By: #### 2 4362-6 ####[facility]ORATORYCLIA [id number] [place] [address] [place] Calcium [Mass/Vol] 7.9 mg/dL Low 8.5-10.2 [facility] Comment on above: Order Comment: Speci men Type: BLOOD SPECIMENOrdering Facility: [facility] Address: [address] [place] [address] Performed By: #### 2 4362-6 ####[facility]ORATORYCLIA [id number] [place] [address] [place] Chloride [Moles/Vol] 103 mmol/L Normal 97-105 [facility] Comment on above: Order Comment: Speci men Type: BLOOD SPECIMENOrdering Facility: [facility] Address: [address] [place] [address] Performed By: #### 2 4362-6 ####[facility]ORATORYCLIA [id number] [place] [address] [place] CO2 [Moles/Vol] 22 mmol/L Normal 22-30 [facility] Comment on above: Order Comment: Speci men Type: BLOOD SPECIMENOrdering Facility: [facility] Address: [address] [place] [address] Performed By: #### 2 4362-6 ####[facility] LABORATORYCLIA [id number] [place] [address] [place] Creatinine [Mass/Vol] 0.97 mg/dL Normal 0.73-1.22 [facility] Comment on above: Order Comment: Speci men Type: BLOOD SPECIMENOrdering Facility: [facility] Address: [address] [place] [address] Performed By: #### 2 4362-6 ####[facility]CRE[facility] LABORATORYCLIA [id number] [place] [address] [place] Creatinine and Glomerular filtration rate.predicted panel (S/P/Bld) 92 mL/min/1.73m??? Normal >=60 [facility] Comment on above: Order Comment: Speci men Type: BLOOD SPECIMENOrdering Facility: [facility] Address: [address] [place] [address] Result Comment: Lola mated Glomerular Filtration Rate (eGFR) is calculated using the 2020 CKD-EPI creatinine equation. This equation utilizes serum creatinine, sex, and age as parameters. The creatinine assay has traceable calibration to isotope dilution-mass spectrometry. Refer to KDIGO guidelines for clinical interpretation. In patients with unstable renal function, e.g. those with acute kidney injury, the eGFR may not accurately reflect actual GFR. Performed By: #### 2 4362-6 ####[facility]ORATORYCLIA [id number] [place] [address] [place] Glucose [Mass/Vol] 112 mg/dL High 74-99 [facility] Comment on above: Order Comment: Doroteo zavala Type: BLOOD SPECIMENOrdering Facility: [facility] Address: [address] [place] [address] Result Comment: The [place] [employer] (ADA) provides guidance for cutoff values for fasting glucose and random glucose. The ADA defines fasting as no caloric intake for at least 8 hours. Fasting plasma glucose results between 100 to 125 mg/dL indicate increased risk for diabetes (prediabetes).Fasting plasma glucose results greater than or equal to 126 mg/dL meet the criteria for diagnosis of diabetes. In the absence of unequivocal hyperglycemia, results should be confirmed by repeat testing. In a patient with classic symptoms of hyperglycemia or hyperglycemic crisis, random plasma glucose results greater than or equal to 200 mg/dL meet the criteria for diagnosis of diabetes.Reference: Standards of Medical Care in Diabetes 2016, [place] [employer]. Diabetes Care. 2016.39(Suppl 1). Performed By: #### 2 4362-6 ####[facility]ORATORYCLIA [id number] [place] [address] [place] Phosphate [Mass/Vol] 4.1 mg/dL Normal 2.7-4.8 [facility] Comment on above: Order Comment: Doroteo [facility] Type: BLOOD SPECIMENOrdering Facility: [facility] Address: [address] [place] [address] Performed By: #### 2 4362-6 ####[facility]ORATORYCLIA [id number] [place] [address] [place] Potassium [Moles/Vol] 4.1 mmol/L Normal 3.7-5.1 [facility] Comment on above: Order Comment: Speci men Type: BLOOD SPECIMENOrdering Facility: [facility] Address: [address] [place] [address] Performed By: #### 2 4362-6 ####[facility] LABORATORYCLIA [id number] [place] [address] [place] Sodium [Moles/Vol] 138 mmol/L Normal 136-144 [facility] Comment on above: Order Comment: Speci men Type: BLOOD SPECIMENOrdering Facility: [facility] Address: [address] [place] [address] Performed By: #### 2 4362-6 ####[facility]ORATORYCLIA [id number] [place] [address] [place] Urea nitrogen [Mass/Vol] 20 mg/dL Normal 9-24 [facility] Comment on above: Order Comment: Speci men Type: BLOOD SPECIMENOrdering Facility: [facility] Address: [address] [place] [address] Performed By: #### 2 4362-6 ####[facility]ORATORYCLIA [id number] [place] [address] [place] CBC panel Auto (Bld)on 05-27 Erythrocyte distribution width (RBC) [Ratio] 19.8 % High 11.5-15.0 [facility] Comment on above: Order Comment: Speci men Type: BLOOD SPECIMENOrdering Facility: [facility] Address: [address] [place] [address] Performed By: #### 5 8410-2 ####[facility]ORATORYCLIA [id number] [place] [address] [place] Hematocrit (Bld) [Volume fraction] 23.4 % Low 39.0-51.0 [facility] Comment on above: Order Comment: Speci men Type: BLOOD SPECIMENOrdering Facility: [facility] Address: [address] [place] [address] Performed By: #### 5 8410-2 ####[facility]ORATORYCLIA [id number] [place] [address] [place] Hemoglobin (Bld) [Mass/Vol] 6.4 g/dL Low 13.0-17.0 [facility] Comment on above: Order Comment: Speci men Type: BLOOD SPECIMENOrdering Facility: [facility] Address: [address] [place] [address] Performed By: #### 5 8410-2 ####[facility]ORATORYCLIA [id number] [place] [address] [place] MCH (RBC) [Entitic mass] 21.4 pg Low 26.0-34.0 [facility] Comment on above: Order Comment: Speci men Type: BLOOD SPECIMENOrdering Facility: [facility] Address: [address] [place] [address] Performed By: #### 5 8410-2 ####[facility]ATORYCLIA [id number] [place] [address] [place] MCHC (RBC) [Mass/Vol] 27.4 g/dL Low 30.5-36.0 [facility] Comment on above: Order Comment: Speci men Type: BLOOD SPECIMENOrdering Facility: [facility] Address: [address] [place] [address] Performed By: #### 5 8410-2 ####[facility]ORATORYCLIA [id number] [place] [address] [place] MCV (RBC) [Entitic vol] 78.3 fL Low 80.0-100.0 [facility] Comment on above: Order Comment: Speci men Type: BLOOD SPECIMENOrdering Facility: [facility] Address: [address] [place] [address] Performed By: #### 5 8410-2 ####[facility]ORATORYCLIA [id number] [place] [address] [place] Nucleated RBC (Bld) [#/Vol] 10*3/uL Normal <0.01 [facility] Comment on above: Order Comment: Speci men Type: BLOOD SPECIMENOrdering Facility: [facility] Address: [address] [place] [address] Performed By: #### 5 8410-2 ####[facility]ORATORYCLIA [id number] [place] [address] [place] Platelet mean volume (Bld) [Entitic vol] 9.8 fL Normal 9.0-12.7 [facility] Comment on above: Order Comment: Speci men Type: BLOOD SPECIMENOrdering Facility: [facility] Address: [address] [place] [address] Performed By: #### 5 8410-2 ####[facility]ORATORYCLIA [id number] [place] [address] [place] Platelets (Bld) [#/Vol] 321 10*3/uL Normal 150-400 [facility] Comment on above: Order Comment: Speci men Type: BLOOD SPECIMENOrdering Facility: [facility] Address: [address] [place] [address] Performed By: #### 5 8410-2 ####[facility]ORATORYCLIA [id number] [place] [address] [place] RBC (Bld) [#/Vol] 2.99 10*6/uL Low 4.20-6.00 [facility] Comment on above: Order Comment: Speci men Type: BLOOD SPECIMENOrdering Facility: [facility] Address: [address] [place] [address] Performed By: #### 5 8410-2 ####[facility]ORATORYCLIA [id number] [place] [address] [place] WBC (Bld) [#/Vol] 8.58 10*3/uL Normal 3.70-11.00 [facility] Comment on above: Order Comment: Speci men Type: BLOOD SPECIMENOrdering Facility: [facility] Address: [address] [place], [place] [address] Performed By: #### 5 8410-2 ####[facility]ORATORYCLIA [id number] [place] [address] [place] Magnesium SerPl-mCncon 05-27 Magnesium [Mass/Vol] 1.6 mg/dL Low 1.7-2.3 [facility] Comment on above: Order Comment: Speci men Type: BLOOD SPECIMENOrdering Facility: [facility] Address: [address] [place] [address] Performed By: #### 1 9123-9 ####[facility]ORATORYCLIA [id number] [place] [address] [place] Renal function 2000 panelon 05-27-2023 Albumin [Mass/Vol] 3.3 g/dL Low 3.9-4.9 [facility] Comment on above: Order Comment: Speci men Type: BLOOD SPECIMENOrdering Facility: [facility] Address: [address] [place] [address] Performed By: #### 2 4362-6 ####[facility]ORATORYCLIA [id number] [place] [address] [place] Anion gap [Moles/Vol] 16 mmol/L Normal 9-18 [facility] Comment on above: Order Comment: Speci men Type: BLOOD SPECIMENOrdering Facility: [facility] Address: [address] [place] [address] Performed By: #### 2 4362-6 ####[facility]ORATORYCLIA [id number] [place] [address] [place] Calcium [Mass/Vol] 8.3 mg/dL Low 8.5-10.2 [facility] Comment on above: Order Comment: Speci men Type: BLOOD SPECIMENOrdering Facility: [facility] Address: [address] [place] [address] Performed By: #### 2 4362-6 ####[facility]ORATORYCLIA [id number] [place] [address] [place] Chloride [Moles/Vol] 100 mmol/L Normal 97-105 [facility] Comment on above: Order Comment: Speci men Type: BLOOD SPECIMENOrdering Facility: [facility] Address: [address] [place] [address] Performed By: #### 2 4362-6 ####[facility]ORATORYCLIA [id number] [place] [address] [place] CO2 [Moles/Vol] 22 mmol/L Normal 22-30 [facility] Comment on above: Order Comment: Speci men Type: BLOOD SPECIMENOrdering Facility: [facility] Address: [address] [place] [address] Performed By: #### 2 4362-6 ####[facility] LABORATORYCLIA [id number] [place] [address] [place] Creatinine [Mass/Vol] 1.42 mg/dL High 0.73-1.22 [facility] Comment on above: Order Comment: Speci men Type: BLOOD SPECIMENOrdering Facility: [facility] Address: [address] [place] [address] Performed By: #### 2 4362-6 ####[facility]ORATORYCLIA [id number] [place] [address] [place] Creatinine and Glomerular filtration rate.predicted panel (S/P/Bld) 58 mL/min/1.73m??? Low >=60 [facility] Comment on above: Order Comment: Speccaryn men Type: BLOOD SPECIMENOrdering Facility: [facility] Address: [address] [place] [address] Result Comment: Lola mated Glomerular Filtration Rate (eGFR) is calculated using the 2020 CKD-EPI creatinine equation. This equation utilizes serum creatinine, sex, and age as parameters. The creatinine assay has traceable calibration to isotope dilution-mass spectrometry. Refer to KDIGO guidelines for clinical interpretation. In patients with unstable renal function, e.g. those with acute kidney injury, the eGFR may not accurately reflect actual GFR. Performed By: #### 2 4362-6 ####[facility]ORATORYCLIA [id number] [place] [address] [place] Glucose [Mass/Vol] 130 mg/dL High 74-99 [facility] Comment on above: Order Comment: Doroteo zavala Type: BLOOD SPECIMENOrdering Facility: [facility] Address: [address] [place] [address] Result Comment: The [place] Diabetes [employer] (ADA) provides guidance for cutoff values for fasting glucose and random glucose. The ADA defines fasting as no caloric intake for at least 8 hours. Fasting plasma glucose results between 100 to 125 mg/dL indicate increased risk for diabetes (prediabetes).Fasting plasma glucose results greater than or equal to 126 mg/dL meet the criteria for diagnosis of diabetes. In the absence of unequivocal hyperglycemia, results should be confirmed by repeat testing. In a patient with classic symptoms of hyperglycemia or hyperglycemic crisis, random plasma glucose results greater than or equal to 200 mg/dL meet the criteria for diagnosis of diabetes.Reference: Standards of Medical Care in Diabetes 2016, [place] [employer]. Diabetes Care. 2016.39(Suppl 1). Performed By: #### 2 4362-6 ####[facility] LABORATORYCLIA [id number] [place] [address] [place] Phosphate [Mass/Vol] 5.1 mg/dL High 2.7-4.8 [facility] Comment on above: Order Comment: Doroteo zavala Type: BLOOD SPECIMENOrdering Facility: [facility] Address: [address] [place] [address] Performed By: #### 2 4362-6 ####[facility]ORATORYCLIA [id number] [place] [address] [place] Potassium [Moles/Vol] 4.7 mmol/L Normal 3.7-5.1 [facility] Comment on above: Order Comment: Doroteo zavala Type: BLOOD SPECIMENOrdering Facility: [facility] Address: [address] [place] [address] Performed By: #### 2 4362-6 ####[facility]ORATORYCLIA [id number] [place] [address] [place] Sodium [Moles/Vol] 138 mmol/L Normal 136-144 [facility] Comment on above: Order Comment: Speci men Type: BLOOD SPECIMENOrdering Facility: [facility] Address: [address] [place] [address] Performed By: #### 2 4362-6 ####[facility]ORATORYCLIA [id number] [place] [address] [place] Urea nitrogen [Mass/Vol] 29 mg/dL High 9-24 [facility] Comment on above: Order Comment: Speci men Type: BLOOD SPECIMENOrdering Facility: [facility] Address: [address] [place] [address] Performed By: #### 2 4362-6 ####[facility]ORATORYCLIA [id number] [place] [address] [place] CBC W Auto Differential pane l (Bld)on 05-26-2023 Anisocytosis Ql (Bld) Present Normal [facility] Comment on above: Order Comment: Speci men Type: BLOOD SPECIMEN [facility] Address: [address] [place] [address] Performed By: #### 1 988-5 #### [facility] CLIA [id number] [address] [place] [address] [place] Basophils (Bld) [#/Vol] 0.00 10*3/uL Normal <0.11 [facility] Comment on above: Order Comment: Speci men Type: BLOOD SPECIMEN [facility] Address: [address] [place] [address] Performed By: #### 1 988-5 #### [facility] CLIA [id number] [address] [place] [address] [place] Basophils/100 WBC (Bld) 0.0 % Normal [facility] Comment on above: Order Comment: Speci men Type: BLOOD SPECIMEN [facility] Address: [address] [place] [address] Performed By: #### 1 988-5 #### [facility] CLIA [id number] [address] [place] [address] [place] Dacrocytes LM Ql (Bld) Few Normal [facility] Comment on above: Order Comment: Speci men Type: BLOOD SPECIMEN [facility] Address: [address] [place] [address] Performed By: #### 1 988-5 #### [facility] CLIA [id number] [address] [place] [address] [place] Differential cell count method Nom (Bld) Manual Normal [facility] Comment on above: Order Comment: Speci men Type: BLOOD SPECIMEN [facility] Address: [address] [place] [address] Performed By: #### 1 988-5 #### [facility] CLIA [id number] [address] [place] [address] [place] Eosinophils (Bld) [#/Vol] 0.26 10*3/uL Normal <0.46 [facility] Comment on above: Order Comment: Speci men Type: BLOOD SPECIMEN [facility] Address: [address] [place] [address] Performed By: #### 1 988-5 #### [facility] CLIA [id number] [address] [place] [address] [place] Eosinophils/100 WBC (Bld) 3.5 % Normal [facility] Comment on above: Order Comment: Speci men Type: BLOOD SPECIMEN [facility] Address: [address] [place] [address] Performed By: #### 1 988-5 #### [facility] CLIA [id number] [address] [place] [address] [place] Erythrocyte distribution width (RBC) [Ratio] 19.6 % High 11.5-15.0 [facility] Comment on above: Order Comment: Speci men Type: BLOOD SPECIMEN [facility] Address: [address] [place] [address] Performed By: #### 1 988-5 #### [facility] CLIA [id number] [address] [place] [address] [place] Hematocrit (Bld) [Volume fraction] 25.7 % Low 39.0-51.0 [facility] Comment on above: Order Comment: Speci men Type: BLOOD SPECIMEN [facility] Address: [address] [place] [address] Performed By: #### 1 988-5 #### [facility] CLIA [id number] [address] [place] [address] [place] Hemoglobin (Bld) [Mass/Vol] 7.3 g/dL Low 13.0-17.0 [facility] Comment on above: Order Comment: Speci men Type: BLOOD SPECIMEN [facility] Address: [address] [place] [address] Performed By: #### 1 988-5 #### [facility] CLIA [id number] [address] [place] [address] [place] Lymphocytes (Bld) [#/Vol] 0.90 10*3/uL Low 1.00-4.00 [facility] Comment on above: Order Comment: Speci men Type: BLOOD SPECIMEN [facility] Address: [address] [place] [address] Performed By: #### 1 988-5 #### [facility] CLIA [id number] [address] [place] [address] [place] Lymphocytes/100 WBC (Bld) 12.3 % Normal [facility] Comment on above: Order Comment: Speci men Type: BLOOD SPECIMEN [facility] Address: [address] [place] [address] Performed By: #### 1 988-5 #### [facility] CLIA [id number] [address] [place] [address] [place] MCH (RBC) [Entitic mass] 21.6 pg Low 26.0-34.0 [facility] Comment on above: Order Comment: Speci men Type: BLOOD SPECIMEN Ordering Facility: [facility]: [address] [place] [address] Performed By: #### 1 988-5 #### [facility] CLIA [id number] [address] [place] [address] [place] MCHC (RBC) [Mass/Vol] 28.4 g/dL Low 30.5-36.0 [facility] Comment on above: Order Comment: Speci men Type: BLOOD SPECIMEN [facility] Address: [address] [place] [address] Performed By: #### 1 988-5 #### [facility] CLIA [id number] [address] [place] [address] [place] MCV (RBC) [Entitic vol] 76.0 fL Low 80.0-100.0 [facility] Comment on above: Order Comment: Speci men Type: BLOOD SPECIMEN [facility] Address: [address] [place] [address] Performed By: #### 1 988-5 #### [facility] CLIA [id number] [address] [place] [address] [place] Metamyelocytes/100 WBC (Bld) 2.6 % Normal [facility] Comment on above: Order Comment: Speci men Type: BLOOD SPECIMEN [facility] Address: [address] [place] [address] Performed By: #### 1 988-5 #### [facility] CLIA [id number] [address] [place] [address] [place] Monocytes (Bld) [#/Vol] 0.32 10*3/uL Normal <0.87 [facility] Comment on above: Order Comment: Speci men Type: BLOOD SPECIMEN [facility] Address: [address] [place] [address] Performed By: #### 1 988-5 #### [facility] CLIA [id number] [address] [place] [address] [place] Monocytes/100 WBC (Bld) 4.4 % Normal [facility] Comment on above: Order Comment: Speci men Type: BLOOD SPECIMEN [facility] Address: [address] [place] [address] Performed By: #### 1 988-5 #### [facility] CLIA [id number] [address] [place] [address] [place] MYELO% 0.9 % Normal [facility] Comment on above: Order Comment: Speci men Type: BLOOD SPECIMEN [facility] Address: [address] [place] [address] Performed By: #### 1 988-5 #### [facility] CLIA [id number] [address] [place] [address] [place] Neutrophils (Bld) [#/Vol] 5.58 10*3/uL Normal 1.45-7.50 [facility] Comment on above: Order Comment: Speci men Type: BLOOD SPECIMEN [facility]ing [facility]: [facility] Address: [address] [place] [address] Performed By: #### 1 988-5 #### [facility] CLIA [id number] [address] [place] [address] [place] Neutrophils/100 WBC (Bld) 76.3 % Normal [facility] Comment on above: Order Comment: Speci men Type: BLOOD SPECIMEN [facility]ing Facility: [facility] Address: [address] [place] [address] Performed By: #### 1 988-5 #### [facility] CLIA [id number] [address] [place] [address] [place] Nucleated RBC (Bld) [#/Vol] 10*3/uL Normal <0.01 [facility] Comment on above: Order Comment: Speci men Type: BLOOD SPECIMEN Ordering Facility: [facility] Address: [address] [place] [address] Performed By: #### 1 988-5 #### [facility] CLIA [id number] [address] [place] [address] [place] Nucleated RBC/100 WBC (Bld) [Ratio] 0.0 /100 WBC Normal [facility] Comment on above: Order Comment: Speci men Type: BLOOD SPECIMEN Ordering Facility: [facility] Address: [address] [place] [address] Performed By: #### 1 988-5 #### [facility] CLIA [id number] [address] [place] [address] [place] Ovalocytes LM Ql (Bld) Few Normal [facility] Comment on above: Order Comment: Speci men Type: BLOOD SPECIMEN Ordering Facility: [facility] Address: [address] [place] [address] Performed By: #### 1 988-5 #### [facility] CLIA [id number] [address] [place] [address] [place] Platelet mean volume (Bld) [Entitic vol] 9.6 fL Normal 9.0-12.7 [facility] Comment on above: Order Comment: Speci men Type: BLOOD SPECIMEN Ordering Facility: [facility] Address: [address] [place] [address] Performed By: #### 1 988-5 #### [facility] CLIA [id number] [address] [place] [address] [place] Platelets (Bld) [#/Vol] 342 10*3/uL Normal 150-400 [facility] Comment on above: Order Comment: Speci men Type: BLOOD SPECIMEN Ordering Facility: [facility] Address: [address] [place] [address] Performed By: #### 1 988-5 #### [facility] CLIA [id number] [address] [place] [address] [place] Platelets Estimate (Bld) [#/Vol] Adequate Normal [facility] Comment on above: Order Comment: Speci men Type: BLOOD SPECIMEN Ordering Facility: [facility] Address: [address] [place] [address] Performed By: #### 1 988-5 #### [facility] CLIA [id number] [address] [place] [address] [place] Polychromasia LM Ql (Bld) Slight Normal [facility] Comment on above: Order Comment: Speci men Type: BLOOD SPECIMEN Ordering Facility: [facility] Address: [address] [place] [address] Performed By: #### 1 988-5 #### [facility] CLIA [id number] [address] [place] [address] [place] RBC (Bld) [#/Vol] 3.38 10*6/uL Low 4.20-6.00 [facility] Comment on above: Order Comment: Speci men Type: BLOOD SPECIMEN Ordering Facility: [facility] Address: [address] [place] [address] Performed By: #### 1 988-5 #### [facility] CLIA [id number] [address] [place] [address] [place] RBC FRAGMENTS Few Abnormal None Seen [facility] Comment on above: Order Comment: Speci men Type: BLOOD SPECIMEN Ordering Facility: [facility] Address: [address] [place] [address] Performed By: #### 1 988-5 #### [facility] CLIA [id number] [address] [place] [address] [place] RED CELL MORPH Reviewed: see result s of individual morphologies Normal [facility] Comment on above: Order Comment: Speci men Type: BLOOD SPECIMEN Ordering Facility: [facility] Address: [address] [place] [address] Performed By: #### 1 988-5 #### [facility] CLIA [id number] [address] [place] [address] [place] WBC (Bld) [#/Vol] 7.31 10*3/uL Normal 3.70-11.00 [facility] Comment on above: Order Comment: Speci men Type: BLOOD SPECIMEN Ordering Facility: [facility] Address: [address] [place] [address] Performed By: #### 1 988-5 #### [facility] CLIA [id number] [address] [place] [address] [place] WBC Left Shift Ql (Bld) Present Normal [facility] Comment on above: Order Comment: Speci men Type: BLOOD SPECIMEN Ordering Facility: [facility] Address: [address] [place] [address] Performed By: #### 1 988-5 #### [facility] CLIA [id number] [address] [place] [address] [place] CT ABD/PEL W IVCONon 024 CT ABD/PEL W IVCON * * *Final Report* * * DATE OF EXAM: May 26 2023 2:45PM [facility] [place]30 - CT ABD/PEL W IVCON / PROCEDURE REASON: hematuria r/o kidney stone/tumor * * * * Physician Interpretation * * * * RESULT: EXAMINATION: CT ABDOMEN AND PELVIS WITH IV CONTRAST CLINICAL HISTORY: Hematuria. TECHNIQUE: CT of the abdomen and pelvis was performed using standard technique, scanning from just above the dome of the diaphragm to the symphysis pubis. MQ: CTAP_3 Contrast: IV: 120 ml of Omnipaque 300 : ml of CT Radiation dose: Integrated Dose-length product (DLP) for this visit = 1760 mGy*cm. CT Dose Reduction Employed: Automated exposure control(AEC) and iterative recon COMPARISON: CT scan of the abdomen and pelvis November 18, 2022 RESULT: Liver: No mass. Diffuse fatty infiltration. Hepatomegaly. Biliary: No bile duct dilation. Sludge in the dependent portion of the gallbladder. Spleen: No mass. Splenomegaly with craniocaudal dimension 14.6 cm. Pancreas: No mass or duct dilation. Adrenals: No mass. Kidneys: Mild bilateral hydronephrosis probably secondary to urinary bladder outlet obstruction. No evidence of stone. Stable 1.8 cm left renal cyst. GI tract: Slightly distended several small bowel loops in the upper abdomen without evidence of obstruction. Normal retrocecal appendix. Left lower quadrant stoma. Lymph nodes: Nonspecific slightly prominent retroperitoneal and bilateral external iliac lymph nodes, probably reactive. There is no significant interval change. Mesentery/Peritoneum: No ascites or mass. Retroperitoneum: No mass. Vasculature: Abdominal aorta is normal in caliber. Celiac axis, SMA, bilateral renal arteries, FALGUNI, bilateral common iliac arteries and their branches are patent. SMV, portal and splenic veins are patent. Pelvis: Markedly distended urinary bladder with mild perivesicular stranding. Small amount of gas within the urinary bladder is probably secondary to recent instrumentation. Bartlett catheter is in place with the tip and balloon at the level of the prostate. Bones/Soft Tissues: Interval development of confluent sacral and right ischial decubitus ulcers. The sacral ulcer extends to the cortex of the lower coccygeal segments which are more irregular than on prior study concerning for osteomyelitis. There is a sinus tract extending to the right ischial tuberosity without definite cortical destruction. There is significant subcutaneous edema in the right gluteal region and small amount of gas posterior to the body of the right iliac bone. There is orthopedic hardware in the lower lumbar spine and sacrum with approximately 1.0 cm soft tissue plane the decubitus ulcer from the screw in the body of the right iliac bone. Interval development of skin thickening and irregular edematous changes in the left buttock concerning for developing pressure injury. Subcutaneous edema in the right abdominal wall most likely dependent. Lower thorax: Dependent atelectasis in the lung bases, greater on the right. Trace bilateral pleural effusions. Cooler Room Worker (topogram) images: No additional findings. IMPRESSION: 1. Mild bilateral hydronephrosis secondary to markedly distended urinary bladder suggestive of malfunctioning of the Bartlett catheter. The tip of the Bartlett catheter is within the prostatic urethra. Clinical correlation is recommended. 2. Decubitus ulcer extending to the coccyx and right ischial tuberosity. Findings suggestive of osteomyelitis of the distal coccygeal segments. The superior aspect of the decubitus ulcer is from the orthopedic hardware in the right iliac bone by approximately 1 cm soft tissue plane. Significant edema in the right buttock with small amount of gas in the body of the right iliac bone. 3. Skin thickening and significant subcutaneous stranding in the left lower buttock concerning for developing pressure injury/ulcer. Recommend clinical correlation. 4. Hepatic splenomegaly without significant interval change. 5. Slightly enlarged retroperitoneal and pelvic lymph nodes without interval change. 6. Gallbladder sludge. Transcribed Using Voice Recognition Transcribe Date/Time: May 26 2023 2:46P Dictated by: KEEGAN HERNANDEZ MD This examination was interpreted and the report reviewed and electronically signed by: KEEGAN HERNANDEZ MD on May 26 2023 3:08PM EST [id number] Normal [facility] Renal function 2000 panelon 05-26-2023 Albumin [Mass/Vol] 3.2 g/dL Low 3.9-4.9 [facility] Comment on above: Order Comment: Speci men Type: BLOOD SPECIMENOrdering Facility: [facility] Address: [address] [place] [address] Performed By: #### 2 4362-6 ####[facility] [id number] [place] [address] [place] Anion gap [Moles/Vol] 15 mmol/L Normal 9-18 [facility] Comment on above: Order Comment: Speci men Type: BLOOD SPECIMENOrdering Facility: [facility] Address: [address] [place] [address] Performed By: #### 2 4362-6 ####[facility] [id number] [place] [address] [place] Calcium [Mass/Vol] 8.4 mg/dL Low 8.5-10.2 [facility] Comment on above: Order Comment: Speci men Type: BLOOD SPECIMENOrdering Facility: [facility] Address: [address] [place] [address] Performed By: #### 2 4362-6 ####[facility] [id number] [place] [address] [place] Chloride [Moles/Vol] 99 mmol/L Normal 97-105 [facility] Comment on above: Order Comment: Speci men Type: BLOOD SPECIMENOrdering Facility: [facility] Address: [address] [place] [address] Performed By: #### 2 4362-6 ####[facility] [id number] [place] [address] [place] CO2 [Moles/Vol] 22 mmol/L Normal 22-30 [facility] Comment on above: Order Comment: Speci men Type: BLOOD SPECIMENOrdering Facility: [facility] Address: [address] [place] [address] Performed By: #### 2 4362-6 ####[facility] [id number] [place] [address] [place] Creatinine [Mass/Vol] 1.80 mg/dL High 0.73-1.22 [facility] Comment on above: Order Comment: Speci men Type: BLOOD SPECIMENOrdering Facility: [facility] Address: [address] [place] [address] Performed By: #### 2 4362-6 ####[facility]ORYIA [id number] [place] [address] [place] Creatinine and Glomerular filtration rate.predicted panel (S/P/Bld) 44 mL/min/1.73m??? Low >=60 [facility] Comment on above: Order Comment: Speci men Type: BLOOD SPECIMENOrdering Facility: [facility] Address: [address] [place] [address] Result Comment: Lola mated Glomerular Filtration Rate (eGFR) is calculated using the 2020 CKD-EPI creatinine equation. This equation utilizes serum creatinine, sex, and age as parameters. The creatinine assay has traceable calibration to isotope dilution-mass spectrometry. Refer to KDIGO guidelines for clinical interpretation. In patients with unstable renal function, e.g. those with acute kidney injury, the eGFR may not accurately reflect actual GFR. Performed By: #### 2 4362-6 ####[facility] [id number] [place] [address] [place] Glucose [Mass/Vol] 151 mg/dL High 74-99 [facility] Comment on above: Order Comment: Speci men Type: BLOOD SPECIMENOrdering Facility: [facility] Address: [address] [place] [address] Result Comment: The [place] Diabetes Association (ADA) provides guidance for cutoff values for fasting glucose and random glucose. The ADA defines fasting as no caloric intake for at least 8 hours. Fasting plasma glucose results between 100 to 125 mg/dL indicate increased risk for diabetes (prediabetes).Fasting plasma glucose results greater than or equal to 126 mg/dL meet the criteria for diagnosis of diabetes. In the absence of unequivocal hyperglycemia, results should be confirmed by repeat testing. In a patient with classic symptoms of hyperglycemia or hyperglycemic crisis, random plasma glucose results greater than or equal to 200 mg/dL meet the criteria for diagnosis of diabetes.Reference: Standards of Medical Care in Diabetes 2016, [place] [employer]. Diabetes Care. 2016.39(Suppl 1). Performed By: #### 2 4362-6 ####[facility] [id number] [place] [address] [place] Phosphate [Mass/Vol] 5.6 mg/dL High 2.7-4.8 [facility] Comment on above: Order Comment: Doroteo zavala Type: BLOOD SPECIMENOrdering Facility: [facility] Address: [address] [place] [address] Performed By: #### 2 4362-6 ####[facility] [id number] [place] [address] [place] Potassium [Moles/Vol] 5.2 mmol/L High 3.7-5.1 [facility] Comment on above: Order Comment: Doroteo zavala Type: BLOOD SPECIMENOrdering Facility: [facility] Address: [address] [place] [address] Performed By: #### 2 4362-6 ####[facility] [id number] [place] [address] [place] Sodium [Moles/Vol] 136 mmol/L Normal 136-144 [facility] Comment on above: Order Comment: Doroteo zavala Type: BLOOD SPECIMENOrdering Facility: [facility] Address: [address] [place] [address] Performed By: #### 2 4362-6 ####[facility] [id number] [place] [address] [place] Urea nitrogen [Mass/Vol] 30 mg/dL High 9-24 [facility] Comment on above: Order Comment: Speci men Type: BLOOD SPECIMENOrdering Facility: [facility] Address: [address] [place] [address] Performed By: #### 2 4362-6 ####[facility] [id number] [place] [address] [place] TYPE + SCREENon 05-26-2023 ABO A Normal [facility] Comment on above: Order Comment: Speci men Type: BLOOD SPECIMEN Ordering Facility: [facility] Address: [address] [place] [address] Performed By: #### T SCR #### [facility] CLIA [id number] [address] [place] [address] [place] HISTORICAL AB SCR STATUS Positive Abnormal [facility] Comment on above: Order Comment: Speci men Type: BLOOD SPECIMEN Ordering Facility: [facility] Address: [address] [place] [address] Performed By: #### T SCR #### [facility] CLIA [id number] [address] [place] [address] [place] Rh Nom (Bld) Positive Normal [facility] Comment on above: Order Comment: Speci men Type: BLOOD SPECIMEN Ordering Facility: [facility] Address: [address] [place] [address] Performed By: #### T SCR #### [facility] CLIA [id number] [address] [place] [address] [place] TYPE AND SCREEN EXPIRATION 05/29/2023 23:59 Normal [facility] Comment on above: Order Comment: Speci men Type: BLOOD SPECIMEN Ordering Facility: [facility] Address: [address] [place] [address] Performed By: #### T SCR #### [facility] CLIA [id number] [address] [place] [address] [place] Bacteria Bld Culton 05-25-19 24 Bacteria identified Cx Nom (Bld) Abnormal [facility] Comment on above: Performed By: #### 6 7 ####[facility] [id number] [place] [address] [place] Bacteria identified Cx Nom (Bld) ORGANISM ID: 1 Proteus mirabilis Refer to specimen collected on 05/25/23 at 2054 [[id number]] GRAM STAIN: Gram negative bacilli Abnormal [facility] Comment on above: Performed By: #### 6 00-7 ####[facility] [id number] [place] [address] [place] Basic metabolic 2000 panelon 05-25-2023 Anion gap [Moles/Vol] 14 mmol/L Normal 9-18 [facility] Comment on above: Order Comment: Speci men Type: BLOOD SPECIMENOrdering Facility: [facility] Address: [address] [place] [address] Performed By: #### 2 4321-2 ####[facility] [id number] [place] [address] [place] Calcium [Mass/Vol] 8.3 mg/dL Low 8.5-10.2 [facility] Comment on above: Order Comment: Speci men Type: BLOOD SPECIMENOrdering Facility: [facility] Address: [address] [place] [address] Performed By: #### 2 4321-2 ####[facility] [id number] [place] [address] [place] Chloride [Moles/Vol] 99 mmol/L Normal 97-105 [facility] Comment on above: Order Comment: Speci men Type: BLOOD SPECIMENOrdering Facility: [facility] Address: [address] [place] [address] Performed By: #### 2 4321-2 ####[facility] [id number] [place] [address] [place] CO2 [Moles/Vol] 24 mmol/L Normal 22-30 [facility] Comment on above: Order Comment: Speci men Type: BLOOD SPECIMENOrdering Facility: [facility] Address: [address] [place] [address] Performed By: #### 2 4321-2 ####[facility] [id number] [place] [address] [place] Creatinine [Mass/Vol] 1.95 mg/dL High 0.73-1.22 [facility] Comment on above: Order Comment: Doroteo lucas Type: BLOOD SPECIMENOrdering Facility: [facility] Address: [address] [place] [address] Performed By: #### 2 4321-2 ####[facility]CL[facility] [id number] [place] [address] [place] Creatinine and Glomerular filtration rate.predicted panel (S/P/Bld) 40 mL/min/1.73m??? Low >=60 [facility] Comment on above: Order Comment: Doroteo lucas Type: BLOOD SPECIMENOrdering Facility: [facility] Address: [address] [place] [address] Result Comment: Lola mated Glomerular Filtration Rate (eGFR) is calculated using the 2020 CKD-EPI creatinine equation. This equation utilizes serum creatinine, sex, and age as parameters. The creatinine assay has traceable calibration to isotope dilution-mass spectrometry. Refer to KDIGO guidelines for clinical interpretation. In patients with unstable renal function, e.g. those with acute kidney injury, the eGFR may not accurately reflect actual GFR. Performed By: #### 2 4321-2 ####[facility] [id number] [place] [address] [place] Glucose [Mass/Vol] 125 mg/dL High 74-99 [facility] Comment on above: Order Comment: Salinacaryn zavala Type: BLOOD SPECIMENOrdering Facility: [facility] Address: [address] [place] [address] Result Comment: The [place] Diabetes Association (ADA) provides guidance for cutoff values for fasting glucose and random glucose. The ADA defines fasting as no caloric intake for at least 8 hours. Fasting plasma glucose results between 100 to 125 mg/dL indicate increased risk for diabetes (prediabetes).Fasting plasma glucose results greater than or equal to 126 mg/dL meet the criteria for diagnosis of diabetes. In the absence of unequivocal hyperglycemia, results should be confirmed by repeat testing. In a patient with classic symptoms of hyperglycemia or hyperglycemic crisis, random plasma glucose results greater than or equal to 200 mg/dL meet the criteria for diagnosis of diabetes.Reference: Standards of Medical Care in Diabetes 2016, [place] [employer]. Diabetes Care. 2016.39(Suppl 1). Performed By: #### 2 4321-2 ####[facility] [id number] [place] [address] [place] Potassium [Moles/Vol] 5.8 mmol/L High 3.7-5.1 [facility] Comment on above: Order Comment: Speci men Type: BLOOD SPECIMENOrdering Facility: [facility] Address: [address] [place] [address] Performed By: #### 2 4321-2 ####[facility] [id number] [place] [address] [place] Sodium [Moles/Vol] 137 mmol/L Normal 136-144 [facility] Comment on above: Order Comment: Speci men Type: BLOOD SPECIMENOrdering Facility: [facility] Address: [address] [place] [address] Performed By: #### 2 4321-2 ####[facility]ORYCLIA [id number] [place] [address] [place] Urea nitrogen [Mass/Vol] 28 mg/dL High 9-24 [facility] Comment on above: Order Comment: Speci men Type: BLOOD SPECIMENOrdering Facility: [facility] Address: [address] [place] [address] Performed By: #### 2 4321-2 ####[facility]ORYCLIA [id number] [place] [address] [place] CBC W Auto Differential pane l (Bld)on 05-25-2023 Basophils (Bld) [#/Vol] 0.06 10*3/uL Normal <0.11 [facility] Comment on above: Order Comment: Speci men Type: BLOOD SPECIMENOrdering Facility: [facility] Address: [address] [place] [address] Performed By: #### 5 7021-8 ####[facility] [id number] [place] [address] [place] Basophils/100 WBC (Bld) 0.4 % Normal [facility] Comment on above: Order Comment: Speci men Type: BLOOD SPECIMENOrdering Facility: [facility] Address: [address] [place] [address] Performed By: #### 5 7021-8 ####[facility] [id number] [place] [address] [place] Differential cell count method Nom (Bld) Auto Normal [facility] Comment on above: Order Comment: Speci men Type: BLOOD SPECIMENOrdering Facility: [facility] Address: [address] [place] [address] Performed By: #### 5 7021-8 ####[facility] [id number] [place] [address] [place] Eosinophils (Bld) [#/Vol] 0.11 10*3/uL Normal <0.46 [facility] Comment on above: Order Comment: Speci men Type: BLOOD SPECIMENOrdering Facility: [facility] Address: [address] [place] [address] Performed By: #### 5 7021-8 ####[facility] [id number] [place] [address] [place] Eosinophils/100 WBC (Bld) 0.7 % Normal [facility] Comment on above: Order Comment: Speci men Type: BLOOD SPECIMENOrdering Facility: [facility] Address: [address] [place] [address] Performed By: #### 5 7021-8 ####[facility] [id number] [place] [address] [place] Erythrocyte distribution width (RBC) [Ratio] 19.7 % High 11.5-15.0 [facility] Comment on above: Order Comment: Speci men Type: BLOOD SPECIMENOrdering Facility: [facility] Address: [address] [place] [address] Performed By: #### 5 7021-8 ####[facility] [id number] [place] [address] [place] Hematocrit (Bld) [Volume fraction] 24.5 % Low 39.0-51.0 [facility] Comment on above: Order Comment: Speci men Type: BLOOD SPECIMENOrdering Facility: [facility] Address: [address] [place] [address] Performed By: #### 5 7021-8 ####[facility] [id number] [place] [address] [place] Hemoglobin (Bld) [Mass/Vol] 7.0 g/dL Low 13.0-17.0 [facility] Comment on above: Order Comment: Speci men Type: BLOOD SPECIMENOrdering Facility: [facility] Address: [address] [place] [address] Performed By: #### 5 7021-8 ####[facility]ORY[facility]IA [id number] [place] [address] [place] Immature granulocytes (Bld) [#/Vol] 0.14 10*3/uL High <0.10 [facility] Comment on above: Order Comment: Speci men Type: BLOOD SPECIMENOrdering Facility: [facility] Address: [address] [place] [address] Performed By: #### 5 7021-8 ####[facility] [id number] [place] [address] [place] Immature granulocytes/100 WBC (Bld) 0.9 % Normal [facility] Comment on above: Order Comment: Speci men Type: BLOOD SPECIMENOrdering Facility: [facility] Address: [address] [place] [address] Performed By: #### 5 7021-8 ####[facility] [id number] [place] [address] [place] Lymphocytes (Bld) [#/Vol] 2.46 10*3/uL Normal 1.00-4.00 [facility] Comment on above: Order Comment: Speci men Type: BLOOD SPECIMENOrdering Facility: [facility] Address: [address] [place] [address] Performed By: #### 5 7021-8 ####[facility]ORYCLIA [id number] [place] [address] [place] Lymphocytes/100 WBC (Bld) 16.4 % Normal [facility] Comment on above: Order Comment: Speci men Type: BLOOD SPECIMENOrdering Facility: [facility] Address: [address] [place] [address] Performed By: #### 5 7021-8 ####[facility]ORYCLIA [id number] [place] [address] [place] MCH (RBC) [Entitic mass] 21.7 pg Low 26.0-34.0 [facility] Comment on above: Order Comment: Speci men Type: BLOOD SPECIMENOrdering Facility: [facility] Address: [address] [place] [address] Performed By: #### 5 7021-8 ####[facility]ORYCLIA [id number] [place] [address] [place] MCHC (RBC) [Mass/Vol] 28.6 g/dL Low 30.5-36.0 [facility] Comment on above: Order Comment: Speci men Type: BLOOD SPECIMENOrdering Facility: [facility] Address: [address] [place] [address] Performed By: #### 5 7021-8 ####[facility]ORYCLIA [id number] [place] [address] [place] MCV (RBC) [Entitic vol] 76.1 fL Low 80.0-100.0 [facility] Comment on above: Order Comment: Speci men Type: BLOOD SPECIMENOrdering Facility: [facility] Address: [address] [place] [address] Performed By: #### 5 7021-8 ####[facility] [id number] [place] [address] [place] Monocytes (Bld) [#/Vol] 1.35 10*3/uL High <0.87 [facility] Comment on above: Order Comment: Speci men Type: BLOOD SPECIMENOrdering Facility: [facility] Address: [address] [place] [address] Performed By: #### 5 7021-8 ####[facility] [id number] [place] [address] [place] Monocytes/100 WBC (Bld) 9.0 % Normal [facility] [facility] Comment on above: Order Comment: Speci men Type: BLOOD SPECIMENOrdering Facility: [facility] Address: [address] [place] [address] Performed By: #### 5 7021-8 ####[facility]ORATORYCLIA [id number] [place] [address] [place] Neutrophils (Bld) [#/Vol] 10.91 10*3/uL High 1.45-7.50 [facility] Comment on above: Order Comment: Speci men Type: BLOOD SPECIMENOrdering Facility: [facility] Address: [address] [place] [address] Performed By: #### 5 7021-8 ####[facility]ORATORYCLIA [id number] [place] [address] [place] Neutrophils/100 WBC (Bld) 72.6 % Normal [facility] Comment on above: Order Comment: Speci men Type: BLOOD SPECIMENOrdering Facility: [facility] Address: [address] [place] [address] Performed By: #### 5 7021-8 ####[facility]ORATORYCLIA [id number] [place] [address] [place] Nucleated RBC (Bld) [#/Vol] 10*3/uL Normal <0.01 [facility] Comment on above: Order Comment: Speci men Type: BLOOD SPECIMENOrdering Facility: [facility] Address: [address] [place] [address] Performed By: #### 5 7021-8 ####[facility]ORATORYCLIA [id number] [place] [address] [place] Nucleated RBC/100 WBC (Bld) [Ratio] 0.0 /100 WBC Normal [facility] Comment on above: Order Comment: Speci men Type: BLOOD SPECIMENOrdering Facility: [facility] Address: [address] [place] [address] Performed By: #### 5 7021-8 ####[facility]ORATORYCLIA [id number] [place] [address] [place] Platelet mean volume (Bld) [Entitic vol] 9.4 fL Normal 9.0-12.7 [facility] Comment on above: Order Comment: Speci men Type: BLOOD SPECIMENOrdering Facility: [facility] Address: [address] [place] [address] Performed By: #### 5 7021-8 ####[facility] LABORATORYCLIA [id number] [place] [address] [place] Platelets (Bld) [#/Vol] 416 10*3/uL High 150-400 [facility] Comment on above: Order Comment: Speci men Type: BLOOD SPECIMENOrdering Facility: [facility] Address: [address] [place] [address] Performed By: #### 5 7021-8 ####[facility] LABORATORYCLIA [id number] [place] [address] [place] RBC (Bld) [#/Vol] 3.22 10*6/uL Low 4.20-6.00 [facility] Comment on above: Order Comment: Speci men Type: BLOOD SPECIMENOrdering Facility: [facility] Address: [address] [place] [address] Performed By: #### 5 7021-8 ####[facility] LABORATORYCLIA [id number] [place] [address] [place] WBC (Bld) [#/Vol] 15.03 10*3/uL High 3.70-11.00 [facility] Comment on above: Order Comment: Speci men Type: BLOOD SPECIMENOrdering Facility: [facility] Address: [address] [place] [address] Performed By: #### 5 7021-8 ####[facility] LABORATORYCLIA [id number] [place] [address] [place] Basophils (Bld) [#/Vol] 0.08 10*3/uL Normal <0.11 [facility] Comment on above: Order Comment: Speci men Type: BLOOD SPECIMENOrdering Facility: [facility] Address: [address] [place] [address] Performed By: #### 5 7021-8 ####[facility] LABORATORYCLIA [id number] [place] [address] [place] Basophils/100 WBC (Bld) 0.6 % Normal [facility] Comment on above: Order Comment: Speci men Type: BLOOD SPECIMENOrdering Facility: [facility] Address: [address] [place] [address] Performed By: #### 5 7021-8 ####[facility] LABORATORYCLIA [id number] [place] [address] [place] Differential cell count method Nom (Bld) Auto Normal [facility] Comment on above: Order Comment: Speci men Type: BLOOD SPECIMENOrdering Facility: [facility] Address: [address] [place] [address] Performed By: #### 5 7021-8 ####[facility] LABORATORYCLIA [id number] [place] [address] [place] Eosinophils (Bld) [#/Vol] 0.55 10*3/uL High <0.46 [facility] Comment on above: Order Comment: Speci men Type: BLOOD SPECIMENOrdering Facility: [facility] Address: [address] [place] [address] Performed By: #### 5 7021-8 ####[facility]ORATORYCLIA [id number] [place] [address] [place] Eosinophils/100 WBC (Bld) 3.9 % Normal [facility] Comment on above: Order Comment: Speci men Type: BLOOD SPECIMENOrdering Facility: [facility] Address: [address] [place] [address] Performed By: #### 5 7021-8 ####[facility] LABORATORYCLIA [id number] [place] [address] [place] Erythrocyte distribution width (RBC) [Ratio] 19.4 % High 11.5-15.0 [facility] Comment on above: Order Comment: Speci men Type: BLOOD SPECIMENOrdering Facility: [facility] Address: [address] [place] [address] Performed By: #### 5 7021-8 ####[facility] LABORATORYCLIA [id number] [place] [address] [place] Hematocrit (Bld) [Volume fraction] 27.7 % Low 39.0-51.0 [facility] Comment on above: Order Comment: Speci men Type: BLOOD SPECIMENOrdering Facility: [facility] Address: [address] [place] [address] Performed By: #### 5 7021-8 ####[facility] LABORATORYCLIA [id number] [place] [address] [place] Hemoglobin (Bld) [Mass/Vol] 7.9 g/dL Low 13.0-17.0 [facility] Comment on above: Order Comment: Speci men Type: BLOOD SPECIMENOrdering Facility: [facility] Address: [address] [place] [address] Performed By: #### 5 7021-8 ####[facility] LABORATORYCLIA [id number] [place] [address] [place] Immature granulocytes (Bld) [#/Vol] 0.15 10*3/uL High <0.10 [facility] Comment on above: Order Comment: Speci men Type: BLOOD SPECIMENOrdering Facility: [facility] Address: [address] [place] [address] Performed By: #### 5 7021-8 ####[facility]ORATORYCLIA [id number] [place] [address] [place] Immature granulocytes/100 WBC (Bld) 1.1 % Normal [facility] Comment on above: Order Comment: Speci men Type: BLOOD SPECIMENOrdering Facility: [facility] Address: [address] [place] [address] Performed By: #### 5 7021-8 ####[facility] LABORATORYCLIA [id number] [place] [address] [place] Lymphocytes (Bld) [#/Vol] 2.76 10*3/uL Normal 1.00-4.00 [facility] Comment on above: Order Comment: Speci men Type: BLOOD SPECIMENOrdering Facility: [facility] Address: [address] [place] [address] Performed By: #### 5 7021-8 ####[facility] LABORATORYCLIA [id number] [place] [address] [place] Lymphocytes/100 WBC (Bld) 19.7 % Normal [facility] Comment on above: Order Comment: Speci men Type: BLOOD SPECIMENOrdering Facility: [facility] Address: [address] [place] [address] Performed By: #### 5 7021-8 ####[facility]ORATORYCLIA [id number] [place] [address] [place] MCH (RBC) [Entitic mass] 21.9 pg Low 26.0-34.0 [facility] Comment on above: Order Comment: Speci men Type: BLOOD SPECIMENOrdering Facility: [facility] Address: [address] [place] [address] Performed By: #### 5 7021-8 ####[facility]ORATORYCLIA [id number] [place] [address] [place] MCHC (RBC) [Mass/Vol] 28.5 g/dL Low 30.5-36.0 [facility] Comment on above: Order Comment: Speci men Type: BLOOD SPECIMENOrdering Facility: [facility] Address: [address] [place] [address] Performed By: #### 5 7021-8 ####[facility]ORATORYCLIA [id number] [place] [address] [place] MCV (RBC) [Entitic vol] 76.7 fL Low 80.0-100.0 [facility] Comment on above: Order Comment: Speci men Type: BLOOD SPECIMENOrdering Facility: [facility] Address: [address] [place] [address] Performed By: #### 5 7021-8 ####[facility]ORATORYCLIA [id number] [place] [address] [place] Monocytes (Bld) [#/Vol] 1.06 10*3/uL High <0.87 [facility] Comment on above: Order Comment: Speci men Type: BLOOD SPECIMENOrdering Facility: [facility] Address: [address] [place] [address] Performed By: #### 5 7021-8 ####[facility] LABORATORYCLIA [id number] [place] [address] [place] Monocytes/100 WBC (Bld) 7.6 % Normal [facility] Comment on above: Order Comment: Speci men Type: BLOOD SPECIMENOrdering Facility: [facility] Address: [address] [place] [address] Performed By: #### 5 7021-8 ####[facility]ORATORYCLIA [id number] [place] [address] [place] Neutrophils (Bld) [#/Vol] 9.43 10*3/uL High 1.45-7.50 [facility] Comment on above: Order Comment: Speci men Type: BLOOD SPECIMENOrdering Facility: [facility] Address: [address] [place] [address] Performed By: #### 5 7021-8 ####[facility] LABORATORYCLIA [id number] [place] [address] [place] Neutrophils/100 WBC (Bld) 67.1 % Normal [facility] Comment on above: Order Comment: Speci men Type: BLOOD SPECIMENOrdering Facility: [facility] Address: [address] [place] [address] Performed By: #### 5 7021-8 ####[facility] LABORATORYCLIA [id number] [place] [address] [place] Nucleated RBC (Bld) [#/Vol] 10*3/uL Normal <0.01 [facility] Comment on above: Order Comment: Speci men Type: BLOOD SPECIMENOrdering Facility: [facility] Address: [address] [place] [address] Performed By: #### 5 7021-8 ####[facility] LABORATORYCLIA [id number] [place] [address] [place] Nucleated RBC/100 WBC (Bld) [Ratio] 0.0 /100 WBC Normal [facility] Comment on above: Order Comment: Speci men Type: BLOOD SPECIMENOrdering Facility: [facility] Address: [address] [place] [address] Performed By: #### 5 7021-8 ####[facility] LABORATORYCLIA [id number] [place] [address] [place] Platelet mean volume (Bld) [Entitic vol] 9.1 fL Normal 9.0-12.7 [facility] Comment on above: Order Comment: Speci men Type: BLOOD SPECIMENOrdering Facility: [facility] Address: [address] [place] [address] Performed By: #### 5 7021-8 ####[facility] LABORATORYCLIA [id number] [place] [address] [place] Platelets (Bld) [#/Vol] 448 10*3/uL High 150-400 [facility] Comment on above: Order Comment: Speci men Type: BLOOD SPECIMENOrdering Facility: [facility] Address: [address] [place] [address] Performed By: #### 5 7021-8 ####[facility] LABORATORYCLIA [id number] [place] [address] [place] RBC (Bld) [#/Vol] 3.61 10*6/uL Low 4.20-6.00 [facility] Comment on above: Order Comment: Speci men Type: BLOOD SPECIMENOrdering Facility: [facility] Address: [address] [place] [address] Performed By: #### 5 7021-8 ####[facility]ORATORYCLIA [id number] [place] [address] [place] WBC (Bld) [#/Vol] 14.03 10*3/uL High 3.70-11.00 [facility] Comment on above: Order Comment: Speci men Type: BLOOD SPECIMENOrdering Facility: [facility] Address: [address] [place] [address] Performed By: #### 5 7021-8 ####[facility] LABORATORYCLIA [id number] [place] [address] [place] Renal Func 2000 Pnl SerPlon 05-25-2023 Anion gap [Moles/Vol] 16 mmol/L Normal 9-18 [facility] Comment on above: Order Comment: Speci men Type: BLOOD SPECIMENOrdering Facility: [facility] Address: [address] [place] [address] Performed By: #### 2 4362-6 ####[facility] LABORATORYCLIA [id number] [place] [address] [place] Performed By: #### 2 4321-2 ####[facility] LABORATORYCLIA [id number] [place] [address] [place] Calcium [Mass/Vol] 8.8 mg/dL Normal 8.5-10.2 [facility] Comment on above: Order Comment: Speci men Type: BLOOD SPECIMENOrdering Facility: [facility] Address: [address] [place] [address] Performed By: #### 2 4362-6 ####[facility]ORATORYCLIA [id number] [place] [address] [place] Performed By: #### 2 4321-2 ####[facility] LABORATORYCLIA [id number] [place] [address] [place] Chloride [Moles/Vol] 103 mmol/L Normal 97-105 [facility] Comment on above: Order Comment: Speci men Type: BLOOD SPECIMENOrdering Facility: [facility] Address: [address] [place] [address] Performed By: #### 2 4362-6 ####[facility] LABORATORYCLIA [id number] [place] [address] [place] Performed By: #### 2 4321-2 ####[facility] LABORATORYCLIA [id number] [place] [address] [place] CO2 [Moles/Vol] 22 mmol/L Normal 22-30 [facility] Comment on above: Order Comment: Speci men Type: BLOOD SPECIMENOrdering Facility: [facility] Address: [address] [place] [address] Performed By: #### 2 4362-6 ####[facility]ORATORYCLIA [id number] [place] [address] [place] Performed By: #### 2 4321-2 ####[facility] LABORATORYCLIA [id number] [place] [address] [place] Creatinine [Mass/Vol] 1.42 mg/dL High 0.73-1.22 [facility] Comment on above: Order Comment: Speci men Type: BLOOD SPECIMENOrdering Facility: [facility] Address: [address] [place] [address] Performed By: #### 2 4362-6 ####[facility] LABORATORYCLIA [id number] [place] [address] [place] Performed By: #### 2 4321-2 ####[facility] LABORATORYCLIA [id number] [address] [place] Creatinine and Glomerular filtration rate.predicted panel (S/P/Bld) 58 mL/min/1.73m??? Low >=60 [facility] Comment on above: Order Comment: Doroteo zavala Type: BLOOD SPECIMENOrdering Facility: [facility] Address: [address] [place] [address] Result Comment: [facility] Glomerular Filtration Rate (eGFR) is calculated using the 2020 CKD-EPI creatinine equation. This equation utilizes serum creatinine, sex, and age as parameters. The creatinine assay has traceable calibration to isotope dilution-mass spectrometry. Refer to KDIGO guidelines for clinical interpretation. In patients with unstable renal function, e.g. those with acute kidney injury, the eGFR may not accurately reflect actual GFR. Performed By: #### 2 4362-6 ####[facility] LABORATORYCLIA [id number] [place] [address] [place] Performed By: #### 2 4321-2 ####[facility] LABORATORYIA [id number] [place] [address] [place] Glucose [Mass/Vol] 151 mg/dL High 74-99 [facility] Comment on above: Order Comment: Doroteo zavala Type: BLOOD SPECIMENOrdering Facility: [facility] Address: [address] [place] [address] Result Comment: The [place] [employer] (ADA) provides guidance for cutoff values for fasting glucose and random glucose. The ADA defines fasting as no caloric intake for at least 8 hours. Fasting plasma glucose results between 100 to 125 mg/dL indicate increased risk for diabetes (prediabetes).Fasting plasma glucose results greater than or equal to 126 mg/dL meet the criteria for diagnosis of diabetes. In the absence of unequivocal hyperglycemia, results should be confirmed by repeat testing. In a patient with classic symptoms of hyperglycemia or hyperglycemic crisis, random plasma glucose results greater than or equal to 200 mg/dL meet the criteria for diagnosis of diabetes.Reference: Standards of Medical Care in Diabetes 2016, [place] [employer]. Diabetes Care. 2016.39(Suppl 1). Performed By: #### 2 4362-6 ####[facility]ORATORYCLIA [id number] [place] [address] [place] Result Comment: The [place] Diabetes [employer] (ADA) provides guidance for cutoff values for fasting glucose and random glucose. The ADA defines fasting as no caloric intake for at least 8 hours. Fasting plasma glucose results between 100 to 125 mg/dL indicate increased risk for diabetes (prediabetes).Fasting plasma glucose results greater than or equal to 126 mg/dL meet the criteria for diagnosis of diabetes. In the absence of unequivocal hyperglycemia, results should be confirmed by repeat testing. In a patient with classic symptoms of hyperglycemia or hyperglycemic crisis, random plasma glucose results greater than or equal to 200 mg/dL meet the criteria for diagnosis of diabetes.Reference: Standards of Medical Care in Diabetes 2016, [employer] [employer]. Diabetes Care. 2016.39(Suppl 1).The [place] [employer] (ADA) provides guidance for cutoff values for fasting glucose and random glucose. The ADA defines fasting as no caloric intake for at least 8 hours. Fasting plasma glucose results between 100 to 125 mg/dL indicate increased risk for diabetes (prediabetes).Fasting plasma glucose results greater than or equal to 126 mg/dL meet the criteria for diagnosis of diabetes. In the absence of unequivocal hyperglycemia, results should be confirmed by repeat testing. In a patient with classic symptoms of hyperglycemia or hyperglycemic crisis, random plasma glucose results greater than or equal to 200 mg/dL meet the criteria for diagnosis of diabetes.Reference: Standards of Medical Care in Diabetes 2016, [employer] [employer]. Diabetes Care. 2016.39(Suppl 1). Performed By: #### 2 4321-2 ####[facility]ORATORYCLIA [id number] [place] [address] [place] Potassium [Moles/Vol] 5.7 mmol/L High 3.7-5.1 [facility] Comment on above: Order Comment: Speci men Type: BLOOD SPECIMENOrdering Facility: [facility] Address: [address] [place] [address] Performed By: #### 2 4362-6 ####[facility]ORATORYCLIA [id number] [place] [address] [place] Performed By: #### 2 4321-2 ####[facility] LABORATORYCLIA [id number] [place] [address] [place] Sodium [Moles/Vol] 141 mmol/L Normal 136-144 [facility] Comment on above: Order Comment: Speci men Type: BLOOD SPECIMENOrdering Facility: [facility] Address: [address] [place] [address] Performed By: #### 2 4362-6 ####[facility] LABORATORYCLIA [id number] [address] [place] Performed By: #### 2 4321-2 ####[facility] LABORATORYCLIA [id number] [place] [address] [place] Urea nitrogen [Mass/Vol] 20 mg/dL Normal 9-24 [facility] Comment on above: Order Comment: Speci men Type: BLOOD SPECIMENOrdering Facility: [facility] Address: [address] [place] [address] Performed By: #### 2 4362-6 ####[facility] LABORATORYCLIA [id number] [place] [address] [place] Performed By: #### 2 4321-2 ####[facility]ORATORYCLIA [id number] [place] [address] [place] Renal function 2000 panelon 05-25-2023 Albumin [Mass/Vol] 3.5 g/dL Low 3.9-4.9 [facility] Comment on above: Order Comment: Speci men Type: BLOOD SPECIMENOrdering Facility: [facility] Address: [address] [place] [address] Performed By: #### 2 4362-6 ####[facility]ORATORYCLIA [id number] [place] [address] [place] Phosphate [Mass/Vol] 4.4 mg/dL Normal 2.7-4.8 [facility] Comment on above: Order Comment: Speci men Type: BLOOD SPECIMENOrdering Facility: [facility] Address: [address] [place] [address] Performed By: #### 2 4362-6 ####[facility] LABORATORYCLIA [id number] [place] [address] [place] Urinalysis complete panel (U )on 05-25-2023 Bacteria LM.HPF (Urine sed) [#/Area] Many Abnormal None Seen [facility] Comment on above: Order Comment: Speci men Type: URINE SPECIMENOrdering Facility: [facility] Address: [address] [place] [address] Performed By: #### 2 4356-8 ####[facility] LABCLIA [id number] [place] [address] [place] Bilirubin Ql (U) Negative Normal Negative [facility] Comment on above: Order Comment: Speci men Type: URINE SPECIMENOrdering Facility: [facility] Address: [address] [place] [address] Performed By: #### 2 4356-8 ####[facility] LABCLIA [id number] [place] [address] [place] Clarity (Unsp spec) Turbid Abnormal Clear [facility] Comment on above: Order Comment: Speci men Type: URINE SPECIMENOrdering Facility: [facility] Address: [address] [place] [address] Performed By: #### 2 4356-8 ####[facility] LABCLIA [id number] [place] [address] [place] Color (U) Red Abnormal Yellow [facility] Comment on above: Order Comment: Speci men Type: URINE SPECIMENOrdering Facility: [facility] Address: [address] [place] [address] Performed By: #### 2 4356-8 ####[facility] LABCLIA [id number] [place] [address] [place] Glucose Test strip (U) [Mass/Vol] Negative Normal Negative [facility] Comment on above: Order Comment: Speci men Type: URINE SPECIMENOrdering Facility: [facility] Address: [address] [place] [address] Performed By: #### 2 4356-8 ####[facility] LABCLIA [id number] [place] [address] [place] Hemoglobin Ql (U) 3+ Abnormal Negative [facility] Comment on above: Order Comment: Speci men Type: URINE SPECIMENOrdering Facility: [facility] Address: [address] [place] [address] Performed By: #### 2 4356-8 ####[facility] LABCLIA [id number] [place] [address] [place] Ketones Ql (U) Negative Normal Negative [facility] Comment on above: Order Comment: Speci men Type: URINE SPECIMENOrdering Facility: [facility] Address: [address] [place] [address] Performed By: #### 2 4356-8 ####[facility] LABCLIA [id number] [place] [address] [place] Leukocyte esterase Test strip Ql (U) 3+ Abnormal Negative [facility] Comment on above: Order Comment: Speci men Type: URINE SPECIMENOrdering Facility: [facility] Address: [address] [place] [address] Performed By: #### 2 4356-8 ####[facility] LABCLIA [id number] [place] [address] [place] Nitrite Ql (U) Positive Abnormal Negative [facility] Comment on above: Order Comment: Speci men Type: URINE SPECIMENOrdering Facility: [facility] Address: [address] [place] [address] Performed By: #### 2 4356-8 ####[facility] LABCLIA [id number] [place] [address] [place] pH (U) 8.0 [pH] Normal 5.0-8.0 [facility] Comment on above: Order Comment: Speci men Type: URINE SPECIMENOrdering Facility: [facility] Address: [address] [place] [address] Performed By: #### 2 4356-8 ####[facility] LABCLIA [id number] [place] [address] [place] Protein (U) [Mass/Vol] Normal [facility] Comment on above: Order Comment: Speci men Type: URINE SPECIMENOrdering Facility: [facility] Address: [address] [place] [address] Result Comment: Visi ble blood causes falsely elevated results for analyte Protein. Due to this limitation, Protein will not be reported for patients whose urine contains visible blood. Performed By: #### 2 4356-8 ####[facility] LABIA [id number] [place] [address] [place] RBC LM.HPF (Urine sed) [#/Area] /[HPF] Abnormal 0-3 /HPF [facility] Comment on above: Order Comment: Speci men Type: URINE SPECIMENOrdering Facility: [facility] Address: [address] [place] [address] Performed By: #### 2 4356-8 ####[facility] LABIA [id number] [place] [address] [place] Specific gravity (U) [Rel density] 1.015 Normal 1.005-1.030 [facility] Comment on above: Order Comment: Speci men Type: URINE SPECIMENOrdering Facility: [facility] Address: [address] [place] [address] Performed By: #### 2 4356-8 ####[facility] LABCLIA [id number] [place] [address] [place] Urobilinogen Ql (U) 0.2 EU/dL Normal 0.2-1.0 EU/dL [facility] Comment on above: Order Comment: Speci men Type: URINE SPECIMENOrdering Facility: [facility] Address: [address] [place] [address] Performed By: #### 2 4356-8 ####[facility] LABCLIA [id number] [place] [address] [place] WBC LM.HPF (Urine sed) [#/Area] /[HPF] Abnormal 0-5 /HPF [facility] Comment on above: Order Comment: Speci men Type: URINE SPECIMENOrdering Facility: [facility] Address: [address] [place] [address] Performed By: #### 2 4356-8 ####[facility] LABCLIA [id number] [place] [address] [place] Renal function 2000 panelon 05-24-2023 Albumin [Mass/Vol] 3.2 g/dL Low 3.9-4.9 [facility] Comment on above: Order Comment: Speci men Type: BLOOD SPECIMENOrdering Facility: [facility] Address: [address] [place] [address] Performed By: #### 2 4362-6 ####[facility]ORATORYCLIA [id number] [place] [address] [place] Anion gap [Moles/Vol] 15 mmol/L Normal 9-18 [facility] Comment on above: Order Comment: Speci men Type: BLOOD SPECIMENOrdering Facility: [facility] Address: [address] [place] [address] Performed By: #### 2 4362-6 ####[facility]ORATORYCLIA [id number] [place] [address] [place] Calcium [Mass/Vol] 8.9 mg/dL Normal 8.5-10.2 [facility] Comment on above: Order Comment: Speci men Type: BLOOD SPECIMENOrdering Facility: [facility] Address: [address] [place] [address] Performed By: #### 2 4362-6 ####[facility]ORATORYCLIA [id number] [place] [address] [place] Chloride [Moles/Vol] 101 mmol/L Normal 97-105 [facility] Comment on above: Order Comment: Speci men Type: BLOOD SPECIMENOrdering Facility: [facility] Address: [address] [place] [address] Performed By: #### 2 4362-6 ####[facility]ORATORYCLIA [id number] [place] [address] [place] CO2 [Moles/Vol] 24 mmol/L Normal 22-30 [facility] Comment on above: Order Comment: Salinai lucas Type: BLOOD SPECIMENOrdering Facility: [facility] Address: [address] [place] [address] Performed By: #### 2 4362-6 ####[facility]ORATORYCLIA [id number] [place] [address] [place] Creatinine [Mass/Vol] 0.85 mg/dL Normal 0.73-1.22 [facility] Comment on above: Order Comment: Salinai men Type: BLOOD SPECIMENOrdering Facility: [facility] Address: [address] [place] [address] Performed By: #### 2 4362-6 ####[facility]ORATORYCLIA [id number] [place] [address] [place] Creatinine and Glomerular filtration rate.predicted panel (S/P/Bld) 103 mL/min/1.73m??? Normal >=60 [facility] Comment on above: Order Comment: Salinai men Type: BLOOD SPECIMENOrdering Facility: [facility] Address: [address] [place] [address] Result Comment: Lola mated Glomerular Filtration Rate (eGFR) is calculated using the 2020 CKD-EPI creatinine equation. This equation utilizes serum creatinine, sex, and age as parameters. The creatinine assay has traceable calibration to isotope dilution-mass spectrometry. Refer to KDIGO guidelines for clinical interpretation. In patients with unstable renal function, e.g. those with acute kidney injury, the eGFR may not accurately reflect actual GFR. Performed By: #### 2 4362-6 ####[facility]ORATORYCLIA [id number] [place] [address] [place] Glucose [Mass/Vol] 106 mg/dL High 74-99 [facility] Comment on above: Order Comment: Doroteo zavala Type: BLOOD SPECIMENOrdering Facility: [facility] Address: [address] [place] [address] Result Comment: The [place] Diabetes Association (ADA) provides guidance for cutoff values for fasting glucose and random glucose. The ADA defines fasting as no caloric intake for at least 8 hours. Fasting plasma glucose results between 100 to 125 mg/dL indicate increased risk for diabetes (prediabetes).Fasting plasma glucose results greater than or equal to 126 mg/dL meet the criteria for diagnosis of diabetes. In the absence of unequivocal hyperglycemia, results should be confirmed by repeat testing. In a patient with classic symptoms of hyperglycemia or hyperglycemic crisis, random plasma glucose results greater than or equal to 200 mg/dL meet the criteria for diagnosis of diabetes.Reference: Standards of Medical Care in Diabetes 2016, [place] [employer]. Diabetes Care. 2016.39(Suppl 1). Performed By: #### 2 4362-6 ####[facility]ORATORYCLIA [id number] [place] [address] [place] Phosphate [Mass/Vol] 4.4 mg/dL Normal 2.7-4.8 [facility] Comment on above: Order Comment: Doroteo zavala Type: BLOOD SPECIMENOrdering Facility: [facility] Address: [address] [place] [address] Performed By: #### 2 4362-6 ####[facility] LABORATORYCLIA [id number] [place] [address] [place] Potassium [Moles/Vol] 5.3 mmol/L High 3.7-5.1 [facility] Comment on above: Order Comment: Doroteo zavala Type: BLOOD SPECIMENOrdering Facility: [facility] Address: [address] [place] [address] Performed By: #### 2 4362-6 ####[facility]ORATORYCLIA [id number] [place] [address] [place] Sodium [Moles/Vol] 140 mmol/L Normal 136-144 [facility] Comment on above: Order Comment: Speci men Type: BLOOD SPECIMENOrdering Facility: [facility] Address: [address] [place] [address] Performed By: #### 2 4362-6 ####[facility]ORATORYCLIA [id number] [place] [address] [place] Urea nitrogen [Mass/Vol] 16 mg/dL Normal 9-24 [facility] Comment on above: Order Comment: Speci men Type: BLOOD SPECIMENOrdering Facility: [facility] Address: [address] [place] [address] Performed By: #### 2 4362-6 ####[facility]ORATORYCLIA [id number] [place] [address] [place] TYPE + SCREENon 05-24-2023 ABO A Normal [facility] Comment on above: Order Comment: Speci men Type: BLOOD SPECIMENOrdering Facility: [facility] Address: [address] [place] [address] Performed By: #### T SCR ####[facility] BLOOD BANKCLIA [id number] [place] [address] [place] HISTORICAL AB SCR STATUS Positive Abnormal [facility] Comment on above: Order Comment: Speci men Type: BLOOD SPECIMENOrdering Facility: [facility] Address: [address] [place] [address] Performed By: #### T SCR ####[facility] BLOOD BANKCLIA [id number] [place] [address] [place] Rh Nom (Bld) Positive Normal [facility] Comment on above: Order Comment: Speci men Type: BLOOD SPECIMENOrdering Facility: [facility] Address: [address] [place] [address] Performed By: #### T SCR ####[facility] BLOOD BANKCLIA [id number] [place] [address] [place] TYPE AND SCREEN EXPIRATION 05/27/2023 23:59 Normal [facility] Comment on above: Order Comment: Speci men Type: BLOOD SPECIMENOrdering Facility: [facility] Address: [address] [place] [address] Performed By: #### T SCR ####[facility] BLOOD BANKCLIA [id number] [place] [address] [place] CBC W Auto Differential pane l (Bld)on 05-23-2023 Basophils (Bld) [#/Vol] 0.06 10*3/uL Normal <0.11 [facility] Comment on above: Order Comment: Speci men Type: BLOOD SPECIMENOrdering Facility: [facility] Address: [address] [place] [address] Performed By: #### 5 7021-8 ####[facility]ORATORYCLIA [id number] [place] [address] [place] Basophils/100 WBC (Bld) 0.8 % Normal [facility] Comment on above: Order Comment: Speci men Type: BLOOD SPECIMENOrdering Facility: [facility] Address: [address] [place] [address] Performed By: #### 5 7021-8 ####[facility]ORATORYCLIA [id number] [place] [address] [place] Differential cell count method Nom (Bld) Auto Normal [facility] Comment on above: Order Comment: Speci men Type: BLOOD SPECIMENOrdering Facility: [facility] Address: [address] [place] [address] Performed By: #### 5 7021-8 ####[facility]ORATORYCLIA [id number] [place] [address] [place] Eosinophils (Bld) [#/Vol] 0.56 10*3/uL High <0.46 [facility] Comment on above: Order Comment: Speci men Type: BLOOD SPECIMENOrdering Facility: [facility] Address: [address] [place] [address] Performed By: #### 5 7021-8 ####[facility]ORATORYCLIA [id number] [place] [address] [place] Eosinophils/100 WBC (Bld) 7.3 % Normal [facility] Comment on above: Order Comment: Speci men Type: BLOOD SPECIMENOrdering Facility: [facility] Address: [address] [place] [address] Performed By: #### 5 7021-8 ####[facility]ORATORYCLIA [id number] [place] [address] [place] Erythrocyte distribution width (RBC) [Ratio] 18.3 % High 11.5-15.0 [facility] Comment on above: Order Comment: Speci men Type: BLOOD SPECIMENOrdering Facility: [facility] Address: [address] [place] [address] Performed By: #### 5 7021-8 ####[facility]ORATORYCLIA [id number] [place] [address] [place] Hematocrit (Bld) [Volume fraction] 23.2 % Low 39.0-51.0 [facility] Comment on above: Order Comment: Speci men Type: BLOOD SPECIMENOrdering Facility: [facility] Address: [address] [place] [address] Performed By: #### 5 7021-8 ####[facility]ORATORYCLIA [id number] [place] [address] [place] Hemoglobin (Bld) [Mass/Vol] 6.6 g/dL Low 13.0-17.0 [facility] Comment on above: Order Comment: Speci men Type: BLOOD SPECIMENOrdering Facility: [facility] Address: [address] [place] [address] Performed By: #### 5 7021-8 ####[facility]ORATORYCLIA [id number] [place] [address] [place] Immature granulocytes (Bld) [#/Vol] 0.06 10*3/uL Normal <0.10 [facility] Comment on above: Order Comment: Speci men Type: BLOOD SPECIMENOrdering Facility: [facility] Address: [address] [place] [address] Performed By: #### 5 7021-8 ####[facility]ORATORYCLIA [id number] [place] [address] [place] Immature granulocytes/100 WBC (Bld) 0.8 % Normal [facility] Comment on above: Order Comment: Speci men Type: BLOOD SPECIMENOrdering Facility: [facility] Address: [address] [place] [address] Performed By: #### 5 7021-8 ####[facility]ORATORYCLIA [id number] [place] [address] [place] Lymphocytes (Bld) [#/Vol] 2.20 10*3/uL Normal 1.00-4.00 [facility] Comment on above: Order Comment: Speci men Type: BLOOD SPECIMENOrdering Facility: [facility] Address: [address] [place] [address] Performed By: #### 5 7021-8 ####[facility]ORATORYCLIA [id number] [place] [address] [place] Lymphocytes/100 WBC (Bld) 28.5 % Normal [facility] Comment on above: Order Comment: Speci men Type: BLOOD SPECIMENOrdering Facility: [facility] Address: [address] [place] [address] Performed By: #### 5 7021-8 ####[facility]ORATORYCLIA [id number] [place] [address] [place] MCH (RBC) [Entitic mass] 21.9 pg Low 26.0-34.0 [facility] Comment on above: Order Comment: Speci men Type: BLOOD SPECIMENOrdering Facility: [facility] Address: [address] [place], [place] [address] Performed By: #### 5 7021-8 ####[facility]ORATORYCLIA [id number] [place] [address] [place] MCHC (RBC) [Mass/Vol] 28.4 g/dL Low 30.5-36.0 [facility] Comment on above: Order Comment: Speci men Type: BLOOD SPECIMENOrdering Facility: [facility] Address: [address] [place] [address] Performed By: #### 5 7021-8 ####[facility]ORATORYCLIA [id number] [place] [address] [place] MCV (RBC) [Entitic vol] 76.8 fL Low 80.0-100.0 [facility] Comment on above: Order Comment: Speci men Type: BLOOD SPECIMENOrdering Facility: [facility] Address: [address] [place] [address] Performed By: #### 5 7021-8 ####[facility]ORATORYCLIA [id number] [place] [address] [place] Monocytes (Bld) [#/Vol] 0.75 10*3/uL Normal <0.87 [facility] Comment on above: Order Comment: Speci men Type: BLOOD SPECIMENOrdering Facility: [facility] Address: [address] [place] [address] Performed By: #### 5 7021-8 ####[facility]ORATORYCLIA [id number] [place] [address] [place] Monocytes/100 WBC (Bld) 9.7 % Normal [facility] Comment on above: Order Comment: Speci men Type: BLOOD SPECIMENOrdering Facility: [facility] Address: [address] [place] [address] Performed By: #### 5 7021-8 ####[facility]ORATORYCLIA [id number] [place] [address] [place] Neutrophils (Bld) [#/Vol] 4.08 10*3/uL Normal 1.45-7.50 [facility] Comment on above: Order Comment: Speci men Type: BLOOD SPECIMENOrdering Facility: [facility] Address: [address] [place] [address] Performed By: #### 5 7021-8 ####[facility]ORATORYCLIA [id number] [place] [address] [place] Neutrophils/100 WBC (Bld) 52.9 % Normal [facility] Comment on above: Order Comment: Speci men Type: BLOOD SPECIMENOrdering Facility: [facility] Address: [address] [place] [address] Performed By: #### 5 7021-8 ####[facility]ORATORYCLIA [id number] [place] [address] [place] Nucleated RBC (Bld) [#/Vol] 10*3/uL Normal <0.01 [facility] Comment on above: Order Comment: Speci men Type: BLOOD SPECIMENOrdering Facility: [facility] Address: [address] [place] [address] Performed By: #### 5 7021-8 ####[facility]ORATORYCLIA [id number] [place] [address] [place] Nucleated RBC/100 WBC (Bld) [Ratio] 0.0 /100 WBC Normal [facility] Comment on above: Order Comment: Speci men Type: BLOOD SPECIMENOrdering Facility: [facility] Address: [address] [place] [address] Performed By: #### 5 7021-8 ####[facility]ORATORYCLIA [id number] [place] [address] [place] Platelet mean volume (Bld) [Entitic vol] 9.6 fL Normal 9.0-12.7 [facility] Comment on above: Order Comment: Speci men Type: BLOOD SPECIMENOrdering Facility: [facility] Address: [address] [place] [address] Performed By: #### 5 7021-8 ####[facility]ORATORYCLIA [id number] [place] [address] [place] Platelets (Bld) [#/Vol] 344 10*3/uL Normal 150-400 [facility] Comment on above: Order Comment: Speci men Type: BLOOD SPECIMENOrdering Facility: [facility] Address: [address] [place] [address] Performed By: #### 5 7021-8 ####[facility]ORATORYCLIA [id number] [place] [address] [place] RBC (Bld) [#/Vol] 3.02 10*6/uL Low 4.20-6.00 [facility] Comment on above: Order Comment: Speci men Type: BLOOD SPECIMENOrdering Facility: [facility] Address: [address] [place] [address] Performed By: #### 5 7021-8 ####[facility] LABORATORYCLIA [id number] [place] [address] [place] WBC (Bld) [#/Vol] 7.71 10*3/uL Normal 3.70-11.00 [facility] Comment on above: Order Comment: Speci men Type: BLOOD SPECIMENOrdering Facility: [facility] Address: [address] [place] [address] Performed By: #### 5 7021-8 ####[facility]ORATORYCLIA [id number] [place] [address] [place] Comp Metab 2000 Pnl SerPlon 05-23-2023 Albumin [Mass/Vol] 3.1 g/dL Low 3.9-4.9 [facility] Comment on above: Order Comment: Speci men Type: BLOOD SPECIMENOrdering Facility: [facility] Address: [address] [place] [address] Performed By: #### 2 4323-8 ####[facility]ORATORYCLIA [id number] [place] [address] [place] Performed By: #### 2 4362-6 ####[facility]ORATORYCLIA [id number] [place] [address] [place] Anion gap [Moles/Vol] 11 mmol/L Normal 9-18 [facility] Comment on above: Order Comment: Speci men Type: BLOOD SPECIMENOrdering Facility: [facility] Address: [address] [place] [address] Performed By: #### 2 4323-8 ####[facility]ORATORYCLIA [id number] [place] [address] [place] Performed By: #### 2 4362-6 ####[facility]ORATORYCLIA [id number] [place] [address] [place] Calcium [Mass/Vol] 8.6 mg/dL Normal 8.5-10.2 [facility] Comment on above: Order Comment: Speci men Type: BLOOD SPECIMENOrdering Facility: [facility] Address: [address] [place] [address] Performed By: #### 2 4323-8 ####[facility]ORATORYCLIA [id number] [place] [address] [place] Performed By: #### 2 4362-6 ####[facility]ORATORYCLIA [id number] [place] [address] [place] Chloride [Moles/Vol] 105 mmol/L Normal 97-105 [facility] Comment on above: Order Comment: Speci men Type: BLOOD SPECIMENOrdering Facility: [facility] Address: [address] [place] [address] Performed By: #### 2 4323-8 ####[facility]ORATORYCLIA [id number] [place] [address] [place] Performed By: #### 2 4362-6 ####[facility]ORATORYCLIA [id number] [place] [address] [place] CO2 [Moles/Vol] 25 mmol/L Normal 22-30 [facility] Comment on above: Order Comment: Speci men Type: BLOOD SPECIMENOrdering Facility: [facility] Address: [address] [place] [address] Performed By: #### 2 4323-8 ####[facility] LABORATORYCLIA [id number] [address] Performed By: #### 2 4362-6 ####[facility] LABORATORYCLIA [id number] [address] [place] [facility] Creatinine [Mass/Vol] 1.01 mg/dL Normal 0.73-1.22 [facility] Comment on above: Order Comment: Speci men Type: BLOOD SPECIMENOrdering Facility: [facility] Address: [address] [place] [address] Performed By: #### 2 4323-8 ####[facility] LABORATORYCLIA [id number] [address] Performed By: #### 2 4362-6 ####[facility] LABORATORYCLIA [id number] [address] Creatinine and Glomerular filtration rate.predicted panel (S/P/Bld) 88 mL/min/1.73m??? Normal >=60 [facility] Comment on above: Order Comment: Speci men Type: BLOOD SPECIMENOrdering Facility: [facility] Address: [address] [place] [address] Result Comment: Lola mated Glomerular Filtration Rate (eGFR) is calculated using the 2020 CKD-EPI creatinine equation. This equation utilizes serum creatinine, sex, and age as parameters. The creatinine assay has traceable calibration to isotope dilution-mass spectrometry. Refer to KDIGO guidelines for clinical interpretation. In patients with unstable renal function, e.g. those with acute kidney injury, the eGFR may not accurately reflect actual GFR. Performed By: #### 2 4323-8 ####[facility] LABORATORYCLIA [id number] [address] Performed By: #### 2 4362-6 ####[facility] LABORATORYCLIA [id number] [place] [address] [place] Glucose [Mass/Vol] 174 mg/dL High 74-99 [facility] Comment on above: Order Comment: Doroteo zavala Type: BLOOD SPECIMENOrdering Facility: [facility] Address: [address] [place] [address] Result Comment: The [place] Diabetes [employer] (ADA) provides guidance for cutoff values for fasting glucose and random glucose. The ADA defines fasting as no caloric intake for at least 8 hours. Fasting plasma glucose results between 100 to 125 mg/dL indicate increased risk for diabetes (prediabetes).Fasting plasma glucose results greater than or equal to 126 mg/dL meet the criteria for diagnosis of diabetes. In the absence of unequivocal hyperglycemia, results should be confirmed by repeat testing. In a patient with classic symptoms of hyperglycemia or hyperglycemic crisis, random plasma glucose results greater than or equal to 200 mg/dL meet the criteria for diagnosis of diabetes.Reference: Standards of Medical Care in Diabetes 2016, [place] [employer]. Diabetes Care. 2016.39(Suppl 1). Performed By: #### 2 4323-8 ####[facility]ORATORYCLIA [id number] [place] [address] [place] Performed By: #### 2 4362-6 ####[facility]ORATORYCLIA [id number] [place] [address] [place] Potassium [Moles/Vol] 4.7 mmol/L Normal 3.7-5.1 [facility] Comment on above: Order Comment: Doroteo zavala Type: BLOOD SPECIMENOrdering Facility: [facility] Address: [address] [place] [address] Performed By: #### 2 4323-8 ####[facility]ORATORYCLIA [id number] [place] [address] [place] Performed By: #### 2 4362-6 ####[facility]ORATORYCLIA [id number] [place] [address] [place] Sodium [Moles/Vol] 141 mmol/L Normal 136-144 [facility] Comment on above: Order Comment: Doroteo zavala Type: BLOOD SPECIMENOrdering Facility: [facility] Address: [address] [place] [address] Performed By: #### 2 4323-8 ####[facility]ORATORYCLIA [id number] [address] [place] Performed By: #### 2 4362-6 ####[facility] LABORATORYCLIA [id number] [place] [address] [place] Urea nitrogen [Mass/Vol] 21 mg/dL Normal 9-24 [facility] Comment on above: Order Comment: Speci men Type: BLOOD SPECIMENOrdering Facility: [facility] Address: [address] [place] [address] Performed By: #### 2 4323-8 ####[facility] LABORATORYCLIA [id number] [place] [address] [place] Performed By: #### 2 4362-6 ####[facility] LABORATORYCLIA [id number] [place] [address] [place] Comprehensive metabolic 2000 panelon 05-23-2023 ALP [Catalytic activity/Vol] 74 U/L Normal 38-113 [facility] Comment on above: Order Comment: Speci men Type: BLOOD SPECIMENOrdering Facility: [facility] Address: [address] [place] [address] Performed By: #### 2 4323-8 ####[facility] LABORATORYCLIA [id number] [place] [address] [place] ALT [Catalytic activity/Vol] 9 U/L Low 10-54 [facility] Comment on above: Order Comment: Speci men Type: BLOOD SPECIMENOrdering Facility: [facility] Address: [address] [place] [address] Performed By: #### 2 4323-8 ####[facility] LABORATORYCLIA [id number] [place] [address] [place] AST [Catalytic activity/Vol] 21 U/L Normal 14-40 [facility] Comment on above: Order Comment: Speci men Type: BLOOD SPECIMENOrdering Facility: [facility] Address: [address] [place] [address] Performed By: #### 2 4323-8 ####[facility] LABORATORYCLIA [id number] [place] [address] [place] Bilirubin [Mass/Vol] 0.2 mg/dL Normal 0.2-1.3 [facility] Comment on above: Order Comment: Speci men Type: BLOOD SPECIMENOrdering Facility: [facility] Address: [address] [place] [address] Performed By: #### 2 4323-8 ####[facility] LABORATORYCLIA [id number] [place] [address] [place] Protein [Mass/Vol] 6.0 g/dL Low 6.3-8.0 [facility] Comment on above: Order Comment: Speci men Type: BLOOD SPECIMENOrdering Facility: [facility] Address: [address] [place] [address] Performed By: #### 2 4323-8 ####[facility] LABORATORYCLIA [id number] [place] [address] [place] Magnesium SerPl-mCncon 05-23 Magnesium [Mass/Vol] 1.7 mg/dL Normal 1.7-2.3 [facility] Comment on above: Order Comment: Speci men Type: BLOOD SPECIMENOrdering Facility: [facility] Address: [address] [place] [address] Performed By: #### 1 9123-9 ####[facility] LABORATORYCLIA [id number] [place] [address] [place] Renal function 2000 panelon 05-23-2023 Phosphate [Mass/Vol] 4.7 mg/dL Normal 2.7-4.8 [facility] Comment on above: Order Comment: Speci men Type: BLOOD SPECIMENOrdering Facility: [facility] Address: [address] [place] [address] Result Comment: Resu lt rechecked. Performed By: #### 2 4362-6 ####[facility] LABORATORYCLIA [id number] [place] [address] [place] BLOOD BANK COMMENTon 024 BLOOD BANK COMMENT See Comment Normal [facility] Comment on above: Order Comment: Speci men Type: BLOOD SPECIMENOrdering Facility: [facility] Address: [address] [place] [address] Result Comment: anti body ID not required. Last Antibody ID performed on 05/18/2023 Performed By: #### L [id number] ####CC MAIN BLOOD BANKCLIA [id number] [place] [id number], [place] [address] [place] Basic metabolic 2000 panelon 05-22-2023 Anion gap [Moles/Vol] 12 mmol/L Normal 9-18 [facility] Comment on above: Order Comment: Speci men Type: BLOOD SPECIMENOrdering Facility: [facility] Address: [address] [place] [address] Performed By: #### 2 4321-2 ####[facility] LABORATORYCLIA [id number] [place] [address] [place] Calcium [Mass/Vol] 8.5 mg/dL Normal 8.5-10.2 [facility] Comment on above: Order Comment: Speci men Type: BLOOD SPECIMENOrdering Facility: [facility] Address: [address] [place] [address] Performed By: #### 2 4321-2 ####[facility] LABORATORYCLIA [id number] [place] [address] [place] Chloride [Moles/Vol] 102 mmol/L Normal 97-105 [facility] Comment on above: Order Comment: Speci men Type: BLOOD SPECIMENOrdering Facility: [facility] Address: [address] [place] [address] Performed By: #### 2 4321-2 ####[facility] LABORATORYCLIA [id number] [place] [address] [place] CO2 [Moles/Vol] 25 mmol/L Normal 22-30 [facility] Comment on above: Order Comment: Speci men Type: BLOOD SPECIMENOrdering Facility: [facility] Address: [address] [place] [address] Performed By: #### 2 4321-2 ####[facility] LABORATORYCLIA [id number] [place] [address] [place] Creatinine [Mass/Vol] 2.05 mg/dL High 0.73-1.22 [facility] Comment on above: Order Comment: Speci men Type: BLOOD SPECIMENOrdering Facility: [facility] Address: [address] [place] [address] Performed By: #### 2 4321-2 ####[facility] LABORATORYCLIA [id number] [place] [address] [place] Creatinine and Glomerular filtration rate.predicted panel (S/P/Bld) 38 mL/min/1.73m??? Low >=60 [facility] Comment on above: Order Comment: Doroteo men Type: BLOOD SPECIMENOrdering Facility: [facility] Address: [address] [place] [address] Result Comment: Lola mated Glomerular Filtration Rate (eGFR) is calculated using the 2020 CKD-EPI creatinine equation. This equation utilizes serum creatinine, sex, and age as parameters. The creatinine assay has traceable calibration to isotope dilution-mass spectrometry. Refer to KDIGO guidelines for clinical interpretation. In patients with unstable renal function, e.g. those with acute kidney injury, the eGFR may not accurately reflect actual GFR. Performed By: #### 2 4321-2 ####[facility] LABORATORYCLIA [id number] [place] [address] [place] Glucose [Mass/Vol] 182 mg/dL High 74-99 [facility] Comment on above: Order Comment: Salinai lucas Type: BLOOD SPECIMENOrdering Facility: [facility] Address: [address] [place] [address] Result Comment: The [place] Diabetes [employer] (ADA) provides guidance for cutoff values for fasting glucose and random glucose. The ADA defines fasting as no caloric intake for at least 8 hours. Fasting plasma glucose results between 100 to 125 mg/dL indicate increased risk for diabetes (prediabetes).Fasting plasma glucose results greater than or equal to 126 mg/dL meet the criteria for diagnosis of diabetes. In the absence of unequivocal hyperglycemia, results should be confirmed by repeat testing. In a patient with classic symptoms of hyperglycemia or hyperglycemic crisis, random plasma glucose results greater than or equal to 200 mg/dL meet the criteria for diagnosis of diabetes.Reference: Standards of Medical Care in Diabetes 2016, [place] [employer]. Diabetes Care. 2016.39(Suppl 1). Performed By: #### 2 4321-2 ####[facility] LABORATORYCLIA [id number] [place] [address] [place] Potassium [Moles/Vol] 5.3 mmol/L High 3.7-5.1 [facility] Comment on above: Order Comment: Speci men Type: BLOOD SPECIMENOrdering Facility: [facility] Address: [address] [place] [address] Performed By: #### 2 4321-2 ####[facility] LABORATORYCLIA [id number] [place] [address] [place] Sodium [Moles/Vol] 139 mmol/L Normal 136-144 [facility] Comment on above: Order Comment: Salinai men Type: BLOOD SPECIMENOrdering Facility: [facility] Address: [address] [place] [address] Performed By: #### 2 4321-2 ####[facility] LABORATORYCLIA [id number] [place] [address] [place] Urea nitrogen [Mass/Vol] 37 mg/dL High 9-24 [facility] Comment on above: Order Comment: Speci men Type: BLOOD SPECIMENOrdering Facility: [facility] Address: [address] [place] [address] Performed By: #### 2 4321-2 ####[facility] LABORATORYCLIA [id number] [place] [address] [place] CBC panel Auto (Bld)on 05-22 Erythrocyte distribution width (RBC) [Ratio] 18.5 % High 11.5-15.0 [facility] Comment on above: Order Comment: Speci men Type: BLOOD SPECIMENOrdering Facility: [facility] Address: [address] [place] [address] Performed By: #### 5 8410-2 ####[facility] LABORATORYCLIA [id number] [place] [address] [place] Hematocrit (Bld) [Volume fraction] 21.3 % Low 39.0-51.0 [facility] Comment on above: Order Comment: Speci men Type: BLOOD SPECIMENOrdering Facility: [facility] Address: [address] [place] [address] Performed By: #### 5 8410-2 ####[facility] LABORATORYCLIA [id number] [place] [address] [place] Hemoglobin (Bld) [Mass/Vol] 6.1 g/dL Low 13.0-17.0 [facility] Comment on above: Order Comment: Speci men Type: BLOOD SPECIMENOrdering Facility: [facility] Address: [address] [place] [address] Performed By: #### 5 8410-2 ####[facility] LABORATORYCLIA [id number] [place] [address] [place] MCH (RBC) [Entitic mass] 21.5 pg Low 26.0-34.0 [facility] Comment on above: Order Comment: Speci men Type: BLOOD SPECIMENOrdering Facility: [facility] Address: [address] [place] [address] Performed By: #### 5 8410-2 ####[facility] LABORATORYCLIA [id number] [place] [address] [place] MCHC (RBC) [Mass/Vol] 28.6 g/dL Low 30.5-36.0 [facility] Comment on above: Order Comment: Speci men Type: BLOOD SPECIMENOrdering Facility: [facility] Address: [address] [place] [address] Performed By: #### 5 8410-2 ####[facility] LABORATORYCLIA [id number] [place] [address] [place] MCV (RBC) [Entitic vol] 75.0 fL Low 80.0-100.0 [facility] Comment on above: Order Comment: Speci men Type: BLOOD SPECIMENOrdering Facility: [facility] Address: [address] [place] [address] Performed By: #### 5 8410-2 ####[facility] LABORATORYCLIA [id number] [place] [address] [place] Nucleated RBC (Bld) [#/Vol] 10*3/uL Normal <0.01 [facility] Comment on above: Order Comment: Speci men Type: BLOOD SPECIMENOrdering Facility: [facility] Address: [address] [place] [address] Performed By: #### 5 8410-2 ####[facility] LABORATORYCLIA [id number] [place] [address] [place] Platelet mean volume (Bld) [Entitic vol] 9.5 fL Normal 9.0-12.7 [facility] Comment on above: Order Comment: Speci men Type: BLOOD SPECIMENOrdering Facility: [facility] Address: [address] [place] [address] Performed By: #### 5 8410-2 ####[facility] LABORATORYCLIA [id number] [place] [address] [place] Platelets (Bld) [#/Vol] 313 10*3/uL Normal 150-400 [facility] Comment on above: Order Comment: Speci men Type: BLOOD SPECIMENOrdering Facility: [facility] Address: [address] [place] [address] Performed By: #### 5 8410-2 ####[facility] LABORATORYCLIA [id number] [place] [address] [place] RBC (Bld) [#/Vol] 2.84 10*6/uL Low 4.20-6.00 [facility] Comment on above: Order Comment: Speci men Type: BLOOD SPECIMENOrdering Facility: [facility] Address: [address] [place] [address] Performed By: #### 5 8410-2 ####[facility] LABORATORYCLIA [id number] [place] [address] [place] WBC (Bld) [#/Vol] 8.52 10*3/uL Normal 3.70-11.00 [facility] Comment on above: Order Comment: Speci men Type: BLOOD SPECIMENOrdering Facility: [facility] Address: [address] [place] [address] Performed By: #### 5 8410-2 ####[facility] LABORATORYCLIA [id number] [place] [address] [place] TYPE + SCREENon 05-22-2023 ABO A Normal [facility] Comment on above: Order Comment: Speci men Type: BLOOD SPECIMENOrdering Facility: [facility] Address: [address] [place] [address] Performed By: #### T SCR ####CC MAIN BLOOD BANKCLIA [id number] [place] [address] [place] HISTORICAL AB SCR STATUS Positive Abnormal [facility] Comment on above: Order Comment: Speci men Type: BLOOD SPECIMENOrdering Facility: [facility] Address: [address] [place] [address] Performed By: #### T SCR ####CC MAIN BLOOD BANKCLIA [id number] [place] [address] [place] Rh Nom (Bld) Positive Normal [facility] Comment on above: Order Comment: Speci men Type: BLOOD SPECIMENOrdering Facility: [facility] Address: [address] [place] [address] Performed By: #### T SCR ####CC MAIN BLOOD BANKCLIA [id number] [place] [id number] [place] TYPE AND SCREEN EXPIRATION 05/25/2023 23:59 Normal [facility] Comment on above: Order Comment: Speci men Type: BLOOD SPECIMENOrdering Facility: [facility] Address: [address] [place] [address] Performed By: #### T SCR ####CC MAIN BLOOD BANKCLIA [id number] [place] [address] [place] Performed By: #### L [id number] ####CC MAIN BLOOD BANKCLIA [id number] [place] [address] [place] CK SerPl-cCncon 05-21-2023 CK [Catalytic activity/Vol] 50 U/L Low 51-298 [facility] Comment on above: Order Comment: Speci men Type: BLOOD SPECIMENOrdering Facility: [facility] Address: [address] [place] [address] Performed By: #### 2 157-6 ####[facility] LABORATORYCLIA [id number] [place] [address] [place] Hepatic function 2000 panelo n 05-21-2023 ALP [Catalytic activity/Vol] 84 U/L Normal 38-113 [facility] Comment on above: Order Comment: Speci men Type: BLOOD SPECIMENOrdering Facility: [facility] Address: [address] [place] [address] Performed By: #### 2 4325-3 ####[facility] LABORATORYCLIA [id number] [place] [address] [place] ALT [Catalytic activity/Vol] 10 U/L Normal 10-54 [facility] Comment on above: Order Comment: Speci men Type: BLOOD SPECIMENOrdering Facility: [facility] Address: [address] [place] [address] Performed By: #### 2 4325-3 ####[facility] LABORATORYCLIA [id number] [place] [address] [place] AST [Catalytic activity/Vol] 18 U/L Normal 14-40 [facility] Comment on above: Order Comment: Speci men Type: BLOOD SPECIMENOrdering Facility: [facility] Address: [address] [place] [address] Performed By: #### 2 4325-3 ####[facility] LABORATORYCLIA [id number] [place] [address] [place] Bilirubin [Mass/Vol] 0.4 mg/dL Normal 0.2-1.3 [facility] Comment on above: Order Comment: Speci men Type: BLOOD SPECIMENOrdering Facility: [facility] Address: [address] [place] [address] Performed By: #### 2 4325-3 ####[facility] LABORATORYCLIA [id number] [place] [address] [place] Bilirubin.conjugated [Mass/Vol] mg/dL Normal <0.2 [facility] Comment on above: Order Comment: Speci men Type: BLOOD SPECIMENOrdering Facility: [facility] Address: [address] [place] [address] Performed By: #### 2 4325-3 ####[facility] LABORATORYCLIA [id number] [place] [address] [place] Protein [Mass/Vol] 5.9 g/dL Low 6.3-8.0 [facility] Comment on above: Order Comment: Speci men Type: BLOOD SPECIMENOrdering Facility: [facility] Address: [address] [place] [address] Performed By: #### 2 4325-3 ####[facility] LABORATORYCLIA [id number] [place] [address] [place] Renal Func 2000 Pnl SerPlon 05-21-2023 Albumin [Mass/Vol] 3.2 g/dL Low 3.9-4.9 [facility] Comment on above: Order Comment: Speci men Type: BLOOD SPECIMENOrdering Facility: [facility] Address: [address] [place] [address] Performed By: #### 2 4362-6 ####[facility] LABORATORYCLIA [id number] [place] [address] [place] Performed By: #### 2 4325-3 ####[facility] LABORATORYCLIA [id number] [place] [address] [place] Anion gap [Moles/Vol] 19 mmol/L High 9-18 [facility] Comment on above: Order Comment: Speci men Type: BLOOD SPECIMENOrdering Facility: [facility] Address: [address] [place] [address] Performed By: #### 2 4362-6 ####[facility] LABORATORYCLIA [id number] [place] [address] [place] Performed By: #### 2 4321-2 ####[facility] LABORATORYCLIA [id number] [place] [address] [place] Calcium [Mass/Vol] 8.4 mg/dL Low 8.5-10.2 [facility] Comment on above: Order Comment: Speci men Type: BLOOD SPECIMENOrdering Facility: [facility] Address: [address] [place] [address] Performed By: #### 2 4362-6 ####[facility] LABORATORYCLIA [id number] [place] [address] [place] Performed By: #### 2 4321-2 ####[facility] LABORATORYCLIA [id number] [place] [address] [place] Chloride [Moles/Vol] 93 mmol/L Low 97-105 [facility] Comment on above: Order Comment: Speci men Type: BLOOD SPECIMENOrdering Facility: [facility] Address: [address] [place] [address] Performed By: #### 2 4362-6 ####[facility] LABORATORYCLIA [id number] [place] [address] [place] Performed By: #### 2 4321-2 ####[facility] LABORATORYCLIA [id number] [place] [address] [place] CO2 [Moles/Vol] 19 mmol/L Low 22-30 [facility] Comment on above: Order Comment: Speci men Type: BLOOD SPECIMENOrdering Facility: [facility] Address: [address] [place] [address] Performed By: #### 2 4362-6 ####[facility] LABORATORYCLIA [id number] [address] Performed By: #### 2 4321-2 ####[facility] LABORATORYCLIA [id number] [place] [address] [place] Creatinine [Mass/Vol] 3.14 mg/dL High 0.73-1.22 [facility] Comment on above: Order Comment: Speci men Type: BLOOD SPECIMENOrdering Facility: [facility] Address: [address] [place] [address] Performed By: #### 2 4362-6 ####[facility] LABORATORYCLIA [id number] [address] Performed By: #### 2 4321-2 ####[facility]CRE[facility] LABORATORYCLIA [id number] [address] Creatinine and Glomerular filtration rate.predicted panel (S/P/Bld) 23 mL/min/1.73m??? Low >=60 [facility] Comment on above: Order Comment: Speci men Type: BLOOD SPECIMENOrdering Facility: [facility] Address: [address] [place] [address] Result Comment: Lola mated Glomerular Filtration Rate (eGFR) is calculated using the 2020 CKD-EPI creatinine equation. This equation utilizes serum creatinine, sex, and age as parameters. The creatinine assay has traceable calibration to isotope dilution-mass spectrometry. Refer to KDIGO guidelines for clinical interpretation. In patients with unstable renal function, e.g. those with acute kidney injury, the eGFR may not accurately reflect actual GFR. Performed By: #### 2 4362-6 ####[facility] LABORATORYCLIA [id number] [address] Performed By: #### 2 4321-2 ####[facility] LABORATORYCLIA [id number] [place] [address] [place] Glucose [Mass/Vol] 206 mg/dL High 74-99 [facility] Comment on above: Order Comment: Speci men Type: BLOOD SPECIMENOrdering Facility: [facility] Address: [address] [place] [address] Result Comment: The [place] Diabetes [employer] (ADA) provides guidance for cutoff values for fasting glucose and random glucose. The ADA defines fasting as no caloric intake for at least 8 hours. Fasting plasma glucose results between 100 to 125 mg/dL indicate increased risk for diabetes (prediabetes).Fasting plasma glucose results greater than or equal to 126 mg/dL meet the criteria for diagnosis of diabetes. In the absence of unequivocal hyperglycemia, results should be confirmed by repeat testing. In a patient with classic symptoms of hyperglycemia or hyperglycemic crisis, random plasma glucose results greater than or equal to 200 mg/dL meet the criteria for diagnosis of diabetes.Reference: Standards of Medical Care in Diabetes 2016, [place] [employer]. Diabetes Care. 2016.39(Suppl 1). Performed By: #### 2 4362-6 ####[facility] LABORATORYCLIA [id number] [address] [place] Result Comment: The [place] Diabetes Association (ADA) provides guidance for cutoff values for fasting glucose and random glucose. The ADA defines fasting as no caloric intake for at least 8 hours. Fasting plasma glucose results between 100 to 125 mg/dL indicate increased risk for diabetes (prediabetes).Fasting plasma glucose results greater than or equal to 126 mg/dL meet the criteria for diagnosis of diabetes. In the absence of unequivocal hyperglycemia, results should be confirmed by repeat testing. In a patient with classic symptoms of hyperglycemia or hyperglycemic crisis, random plasma glucose results greater than or equal to 200 mg/dL meet the criteria for diagnosis of diabetes.Reference: Standards of Medical Care in Diabetes 2016, [place] [employer]. Diabetes Care. 2016.39(Suppl 1).The [place] Diabetes Association (ADA) provides guidance for cutoff values for fasting glucose and random glucose. The ADA defines fasting as no caloric intake for at least 8 hours. Fasting plasma glucose results between 100 to 125 mg/dL indicate increased risk for diabetes (prediabetes).Fasting plasma glucose results greater than or equal to 126 mg/dL meet the criteria for diagnosis of diabetes. In the absence of unequivocal hyperglycemia, results should be confirmed by repeat testing. In a patient with classic symptoms of hyperglycemia or hyperglycemic crisis, random plasma glucose results greater than or equal to 200 mg/dL meet the criteria for diagnosis of diabetes.Reference: Standards of Medical Care in Diabetes 2016, [place] [employer]. Diabetes Care. 2016.39(Suppl 1). Performed By: #### 2 4321-2 ####[facility] LABORATORYCLIA [id number] [place] [address] [place] Potassium [Moles/Vol] 6.2 mmol/L Critically high 3.7-5.1 [facility] Comment on above: Order Comment: Doroteo zavala Type: BLOOD SPECIMENOrdering Facility: [facility] Address: [address] [place] [address] Performed By: #### 2 4362-6 ####[facility] LABORATORYCLIA [id number] [address] [place] Performed By: #### 2 4321-2 ####[facility] LABORATORYCLIA [id number] [place] [address] [place] Sodium [Moles/Vol] 131 mmol/L Low 136-144 [facility] Comment on above: Order Comment: Doroteo zavala Type: BLOOD SPECIMENOrdering Facility: [facility] Address: [address] [place] [address] Performed By: #### 2 4362-6 ####[facility] LABORATORYCLIA [id number] [place] [address] [place] Performed By: #### 2 4321-2 ####[facility] LABORATORYCLIA [id number] [place] [address] [place] Urea nitrogen [Mass/Vol] 41 mg/dL High 9-24 [facility] Comment on above: Order Comment: Doroteo zavala Type: BLOOD SPECIMENOrdering Facility: [facility] [facility] Address: [address] [place] [address] Performed By: #### 2 4362-6 ####[facility] LABORATORYCLIA [id number] [place] [address] [place] Performed By: #### 2 4321-2 ####[facility] LABORATORYCLIA [id number] [place] [address] [place] Renal function 2000 panelon 05-21-2023 Phosphate [Mass/Vol] 7.9 mg/dL High 2.7-4.8 [facility] Comment on above: Order Comment: Speci men Type: BLOOD SPECIMENOrdering Facility: [facility] Address: [address] [place] [address] Performed By: #### 2 4362-6 ####[facility] LABORATORYCLIA [id number] [place] [address] [place] Basic metabolic 2000 panelon 05-20-2023 Anion gap [Moles/Vol] 19 mmol/L High 9-18 [facility] Comment on above: Order Comment: Speci men Type: BLOOD SPECIMENOrdering Facility: [facility] Address: [address] [place] [address] Performed By: #### 2 4321-2 ####[facility] LABORATORYCLIA [id number] [place] [address] [place] Calcium [Mass/Vol] 9.2 mg/dL Normal 8.5-10.2 [facility] Comment on above: Order Comment: Speci men Type: BLOOD SPECIMENOrdering Facility: [facility] Address: [address] [place] [address] Performed By: #### 2 4321-2 ####[facility] LABORATORYCLIA [id number] [place] [address] [place] Chloride [Moles/Vol] 92 mmol/L Low 97-105 [facility] Comment on above: Order Comment: Speci men Type: BLOOD SPECIMENOrdering Facility: [facility] Address: [address] [place] [address] Performed By: #### 2 4321-2 ####[facility] LABORATORYCLIA [id number] [place] [address] [place] CO2 [Moles/Vol] 22 mmol/L Normal 22-30 [facility] Comment on above: Order Comment: Speccaryn zavala Type: BLOOD SPECIMENOrdering Facility: [facility] Address: [address] [place] [address] Performed By: #### 2 4321-2 ####[facility] LABORATORYCLIA [id number] [place] [address] [place] Creatinine [Mass/Vol] 1.96 mg/dL High 0.73-1.22 [facility] Comment on above: Order Comment: Speci men Type: BLOOD SPECIMENOrdering Facility: [facility] Address: [address] [place] [address] Performed By: #### 2 4321-2 ####[facility] LABORATORYCLIA [id number] [place] [address] [place] Creatinine and Glomerular filtration rate.predicted panel (S/P/Bld) 40 mL/min/1.73m??? Low >=60 [facility] Comment on above: Order Comment: Speccaryn zavala Type: BLOOD SPECIMENOrdering Facility: [facility] Address: [address] [place] [address] Result Comment: Lola mated Glomerular Filtration Rate (eGFR) is calculated using the 2020 CKD-EPI creatinine equation. This equation utilizes serum creatinine, sex, and age as parameters. The creatinine assay has traceable calibration to isotope dilution-mass spectrometry. Refer to KDIGO guidelines for clinical interpretation. In patients with unstable renal function, e.g. those with acute kidney injury, the eGFR may not accurately reflect actual GFR. Performed By: #### 2 4321-2 ####[facility] LABORATORYCLIA [id number] [place] [address] [place] Glucose [Mass/Vol] 131 mg/dL High 74-99 [facility] Comment on above: Order Comment: Salinai lucas Type: BLOOD SPECIMENOrdering Facility: [facility] Address: [address] [place] [address] Result Comment: The [place] Diabetes Association (ADA) provides guidance for cutoff values for fasting glucose and random glucose. The ADA defines fasting as no caloric intake for at least 8 hours. Fasting plasma glucose results between 100 to 125 mg/dL indicate increased risk for diabetes (prediabetes).Fasting plasma glucose results greater than or equal to 126 mg/dL meet the criteria for diagnosis of diabetes. In the absence of unequivocal hyperglycemia, results should be confirmed by repeat testing. In a patient with classic symptoms of hyperglycemia or hyperglycemic crisis, random plasma glucose results greater than or equal to 200 mg/dL meet the criteria for diagnosis of diabetes.Reference: Standards of Medical Care in Diabetes 2016, [place] [employer]. Diabetes Care. 2016.39(Suppl 1). Performed By: #### 2 4321-2 ####[facility] LABORATORYCLIA [id number] [place] [address] [place] Potassium [Moles/Vol] 5.4 mmol/L High 3.7-5.1 [facility] Comment on above: Order Comment: Doroteo zavala Type: BLOOD SPECIMENOrdering Facility: [facility] Address: [address] [place] [address] Performed By: #### 2 4321-2 ####[facility] LABORATORYCLIA [id number] [place] [address] [place] Sodium [Moles/Vol] 133 mmol/L Low 136-144 [facility] Comment on above: Order Comment: Doroteo zavala Type: BLOOD SPECIMENOrdering Facility: [facility] Address: [address] [place] [address] Performed By: #### 2 4321-2 ####[facility] LABORATORYCLIA [id number] [place] [address] [place] Urea nitrogen [Mass/Vol] 28 mg/dL High 9-24 [facility] Comment on above: Order Comment: Doroteo zavala Type: BLOOD SPECIMENOrdering Facility: [facility] Address: [address] [place] [address] Performed By: #### 2 4321-2 ####[facility] LABORATORYCLIA [id number] [place] [address] [place] CBC W Auto Differential pane l (Bld)on 05-20-2023 Basophils (Bld) [#/Vol] 0.08 10*3/uL Normal <0.11 [facility] Comment on above: Order Comment: Speci men Type: BLOOD SPECIMENOrdering Facility: [facility] Address: [address] [place] [address] Performed By: #### 5 7021-8 ####[facility] LABORATORYCLIA [id number] [place] [address] [place] Basophils/100 WBC (Bld) 0.7 % [facility] Comment on above: Order Comment: Speci men Type: BLOOD SPECIMENOrdering Facility: [facility] Address: [address] [place] [address] Performed By: #### 5 7021-8 ####[facility] LABORATORYCLIA [id number] [place] [address] [place] Differential cell count method Nom (Bld) Auto [facility] Comment on above: Order Comment: Speci men Type: BLOOD SPECIMENOrdering Facility: [facility] Address: [address] [place] [address] Performed By: #### 5 7021-8 ####[facility] LABORATORYCLIA [id number] [place] [address] [place] Eosinophils (Bld) [#/Vol] 0.62 10*3/uL High <0.46 [facility] Comment on above: Order Comment: Speci men Type: BLOOD SPECIMENOrdering Facility: [facility] Address: [address] [place] [address] Performed By: #### 5 7021-8 ####[facility] LABORATORYCLIA [id number] [place] [address] [place] Eosinophils/100 WBC (Bld) 5.1 % [facility] Comment on above: Order Comment: Speci men Type: BLOOD SPECIMENOrdering Facility: [facility] Address: [address] [place] [address] Performed By: #### 5 7021-8 ####[facility] LABORATORYCLIA [id number] [place] [address] [place] Erythrocyte distribution width (RBC) [Ratio] 18.6 % High 11.5-15.0 [facility] Comment on above: Order Comment: Speci men Type: BLOOD SPECIMENOrdering Facility: [facility] Address: [address] [place] [address] Performed By: #### 5 7021-8 ####[facility] LABORATORYCLIA [id number] [place] [address] [place] Hematocrit (Bld) [Volume fraction] 26.0 % Low 39.0-51.0 [facility] Comment on above: Order Comment: Speci men Type: BLOOD SPECIMENOrdering Facility: [facility] Address: [address] [place] [address] Performed By: #### 5 7021-8 ####[facility] LABORATORYCLIA [id number] [place] [address] [place] Hemoglobin (Bld) [Mass/Vol] 7.3 g/dL Low 13.0-17.0 [facility] Comment on above: Order Comment: Speci men Type: BLOOD SPECIMENOrdering Facility: [facility] Address: [address] [place] [address] Performed By: #### 5 7021-8 ####[facility] LABORATORYCLIA [id number] [place] [address] [place] Immature granulocytes (Bld) [#/Vol] 0.10 10*3/uL High <0.10 [facility] Comment on above: Order Comment: Speci men Type: BLOOD SPECIMENOrdering Facility: [facility] Address: [address] [place] [address] Performed By: #### 5 7021-8 ####[facility] LABORATORYCLIA [id number] [place] [address] [place] Immature granulocytes/100 WBC (Bld) 0.8 % Normal [facility] Comment on above: Order Comment: Speci men Type: BLOOD SPECIMENOrdering Facility: [facility] Address: [address] [place] [address] Performed By: #### 5 7021-8 ####[facility] LABORATORYCLIA [id number] [place] [address] [place] Lymphocytes (Bld) [#/Vol] 2.84 10*3/uL Normal 1.00-4.00 [facility] Comment on above: Order Comment: Speci men Type: BLOOD SPECIMENOrdering Facility: [facility] Address: [address] [place] [address] Performed By: #### 5 7021-8 ####[facility] LABORATORYCLIA [id number] [place] [address] [place] Lymphocytes/100 WBC (Bld) 23.2 % Normal [facility] Comment on above: Order Comment: Speci men Type: BLOOD SPECIMENOrdering Facility: [facility] Address: [address] [place] [address] Performed By: #### 5 7021-8 ####[facility] LABORATORYCLIA [id number] [place] [address] [place] MCH (RBC) [Entitic mass] 21.6 pg Low 26.0-34.0 [facility] Comment on above: Order Comment: Speci men Type: BLOOD SPECIMENOrdering Facility: [facility] Address: [address] [place] [address] Performed By: #### 5 7021-8 ####[facility] LABORATORYCLIA [id number] [place] [address] [place] MCHC (RBC) [Mass/Vol] 28.1 g/dL Low 30.5-36.0 [facility] Comment on above: Order Comment: Speci men Type: BLOOD SPECIMENOrdering Facility: [facility] Address: [address] [place] [address] Performed By: #### 5 7021-8 ####[facility] LABORATORYCLIA [id number] [place] [address] [place] MCV (RBC) [Entitic vol] 76.9 fL Low 80.0-100.0 [facility] Comment on above: Order Comment: Speci men Type: BLOOD SPECIMENOrdering Facility: [facility] Address: [address] [place] [address] Performed By: #### 5 7021-8 ####[facility] LABORATORYCLIA [id number] [place] [address] [place] Monocytes (Bld) [#/Vol] 1.55 10*3/uL High <0.87 [facility] Comment on above: Order Comment: Speci men Type: BLOOD SPECIMENOrdering Facility: [facility] Address: [address] [place] [address] Performed By: #### 5 7021-8 ####[facility] LABORATORYCLIA [id number] [place] [address] [place] Monocytes/100 WBC (Bld) 12.7 % Normal [facility] Comment on above: Order Comment: Speci men Type: BLOOD SPECIMENOrdering Facility: [facility] Address: [address] [place] [address] Performed By: #### 5 7021-8 ####[facility] LABORATORYCLIA [id number] [place] [address] [place] Neutrophils (Bld) [#/Vol] 7.04 10*3/uL Normal 1.45-7.50 [facility] Comment on above: Order Comment: Speci men Type: BLOOD SPECIMENOrdering Facility: [facility] Address: [address] [place] [address] Performed By: #### 5 7021-8 ####[facility] LABORATORYCLIA [id number] [place] [address] [place] Neutrophils/100 WBC (Bld) 57.5 % Normal [facility] Comment on above: Order Comment: Speci men Type: BLOOD SPECIMENOrdering Facility: [facility] Address: [address] [place] [address] Performed By: #### 5 7021-8 ####[facility] LABORATORYCLIA [id number] [place] [address] [place] Nucleated RBC (Bld) [#/Vol] 10*3/uL Normal <0.01 [facility] Comment on above: Order Comment: Speci men Type: BLOOD SPECIMENOrdering Facility: [facility] Address: [address] [place] [address] Performed By: #### 5 7021-8 ####[facility] LABORATORYCLIA [id number] [place] [address] [place] Nucleated RBC/100 WBC (Bld) [Ratio] 0.0 /100 WBC Normal [facility] Comment on above: Order Comment: Speci men Type: BLOOD SPECIMENOrdering Facility: [facility] Address: [address] [place] [address] Performed By: #### 5 7021-8 ####[facility] LABORATORYCLIA [id number] [place] [address] [place] Platelet mean volume (Bld) [Entitic vol] 9.8 fL Normal 9.0-12.7 [facility] Comment on above: Order Comment: Speci men Type: BLOOD SPECIMENOrdering Facility: [facility] Address: [address] [place] [address] Performed By: #### 5 7021-8 ####[facility] LABORATORYCLIA [id number] [place] [address] [place] Platelets (Bld) [#/Vol] 346 10*3/uL Normal 150-400 [facility] Comment on above: Order Comment: Speci men Type: BLOOD SPECIMENOrdering Facility: [facility] Address: [address] [place] [address] Performed By: #### 5 7021-8 ####[facility] LABORATORYCLIA [id number] [place] [address] [place] RBC (Bld) [#/Vol] 3.38 10*6/uL Low 4.20-6.00 [facility] Comment on above: Order Comment: Speci men Type: BLOOD SPECIMENOrdering Facility: [facility] Address: [address] [place] [address] Performed By: #### 5 7021-8 ####[facility] LABORATORYCLIA [id number] [place] [address] [place] WBC (Bld) [#/Vol] 12.23 10*3/uL High 3.70-11.00 [facility] Comment on above: Order Comment: Speci men Type: BLOOD SPECIMENOrdering Facility: [facility] Address: [address] [place] [address] Performed By: #### 5 7021-8 ####[facility] LABORATORYCLIA [id number] [place] [address] [place] CBC panel Auto (Bld)on 05-19 Erythrocyte distribution width (RBC) [Ratio] 18.6 % High 11.5-15.0 [facility] Comment on above: Order Comment: Speci men Type: BLOOD SPECIMENOrdering Facility: [facility] Address: [address] [place] [address] Performed By: #### 5 8410-2 ####[facility] LABORATORYCLIA [id number] [place] [address] [place] Hematocrit (Bld) [Volume fraction] 26.3 % Low 39.0-51.0 [facility] Comment on above: Order Comment: Speci men Type: BLOOD SPECIMENOrdering Facility: [facility] Address: [address] [place] [address] Performed By: #### 5 8410-2 ####[facility] LABORATORYCLIA [id number] [place] [address] [place] Hemoglobin (Bld) [Mass/Vol] 7.3 g/dL Low 13.0-17.0 [facility] Comment on above: Order Comment: Speci men Type: BLOOD SPECIMENOrdering Facility: [facility] Address: [address] [place] [address] Performed By: #### 5 8410-2 ####[facility] LABORATORYCLIA [id number] [place] [address] [place] MCH (RBC) [Entitic mass] 21.5 pg Low 26.0-34.0 [facility] Comment on above: Order Comment: Speci men Type: BLOOD SPECIMENOrdering Facility: [facility] Address: [address] [place] [address] Performed By: #### 5 8410-2 ####[facility] LABORATORYCLIA [id number] [place] [address] [place] MCHC (RBC) [Mass/Vol] 27.8 g/dL Low 30.5-36.0 [facility] Comment on above: Order Comment: Speci men Type: BLOOD SPECIMENOrdering Facility: [facility] Address: [address] [place] [address] Performed By: #### 5 8410-2 ####[facility] LABORATORYCLIA [id number] [place] [address] [place] MCV (RBC) [Entitic vol] 77.6 fL Low 80.0-100.0 [facility] Comment on above: Order Comment: Speci men Type: BLOOD SPECIMENOrdering Facility: [facility] Address: [address] [place] [address] Performed By: #### 5 8410-2 ####[facility] LABORATORYCLIA [id number] [place] [address] [place] Nucleated RBC (Bld) [#/Vol] 10*3/uL Normal <0.01 [facility] Comment on above: Order Comment: Speci men Type: BLOOD SPECIMENOrdering Facility: [facility] Address: [address] [place] [address] Performed By: #### 5 8410-2 ####[facility] LABORATORYCLIA [id number] [place] [address] [place] Platelet mean volume (Bld) [Entitic vol] 9.5 fL Normal 9.0-12.7 [facility] Comment on above: Order Comment: Speci men Type: BLOOD SPECIMENOrdering Facility: [facility] Address: [address] [place] [address] Performed By: #### 5 8410-2 ####[facility] LABORATORYCLIA [id number] [place] [address] [place] Platelets (Bld) [#/Vol] 330 10*3/uL Normal 150-400 [facility] Comment on above: Order Comment: Speci men Type: BLOOD SPECIMENOrdering Facility: [facility] Address: [address] [place] [address] Performed By: #### 5 8410-2 ####[facility] LABORATORYCLIA [id number] [place] [address] [place] RBC (Bld) [#/Vol] 3.39 10*6/uL Low 4.20-6.00 [facility] Comment on above: Order Comment: Speci men Type: BLOOD SPECIMENOrdering Facility: [facility] Address: [address] [place] [address] Performed By: #### 5 8410-2 ####[facility] LABORATORYCLIA [id number] [place] [address] [place] WBC (Bld) [#/Vol] 8.38 10*3/uL Normal 3.70-11.00 [facility] Comment on above: Order Comment: Speci men Type: BLOOD SPECIMENOrdering Facility: [facility] Address: [address] [place] [address] Performed By: #### 5 8410-2 ####[facility] LABORATORYCLIA [id number] [place] [address] [place] ANTIBODY ID PATIENTon 2023 ANTIBODY IDENTIFIED Non-specific Celia Normal [facility] Comment on above: Order Comment: Speci men Type: BLOOD SPECIMENOrdering Facility: [facility] Address: [address] [place] [address] Performed By: #### B BABINT, DAGT, %ABBY ####[facility]LOOD BANKCLIA [id number] [address] [place] BLOOD BANK PLACEHOLDER, ANTI BODY INTERPRETATIONon 05-18-2023 BLOOD BANK REPORT, ANTIBODY INTERPRETATION See Pathology Report Normal [facility] Comment on above: Order Comment: Speci men Type: BLOOD SPECIMENOrdering Facility: [facility] Address: [address] [place] [address] Performed By: #### B BABINT, DAGT, %ABBY ####[facility]LOOD BANKCLIA [id number] [address] [place] TYPE AND SCREEN EXPIRATION 05/21/2023 23:59 Normal [facility] Comment on above: Order Comment: Speci men Type: BLOOD SPECIMENOrdering Facility: [facility] Address: [address] [place] [address] Performed By: #### B BABINT, DAGT, %ABBY ####[facility]LOOD BANKCLIA [id number] [address] [place] Performed By: #### T SCR ####[facility] BLOOD BANKCLIA [id number] [place] [address] [place] CBC panel Auto (Bld)on 05-18 Erythrocyte distribution width (RBC) [Ratio] 18.6 % High 11.5-15.0 [facility] Comment on above: Order Comment: Speci men Type: BLOOD SPECIMENOrdering Facility: [facility] Address: [address] [place] [address] Performed By: #### 5 8410-2 ####[facility] LABORATORYCLIA [id number] [address] [place] Hematocrit (Bld) [Volume fraction] 24.9 % Low 39.0-51.0 [facility] Comment on above: Order Comment: Speci men Type: BLOOD SPECIMENOrdering Facility: [facility] Address: [address] [place] [address] Performed By: #### 5 8410-2 ####[facility] LABORATORYCLIA [id number] [place] [address] [place] Hemoglobin (Bld) [Mass/Vol] 7.2 g/dL Low 13.0-17.0 [facility] Comment on above: Order Comment: Speci men Type: BLOOD SPECIMENOrdering Facility: [facility] Address: [address] [place] [address] Performed By: #### 5 8410-2 ####[facility] LABORATORYCLIA [id number] [place] [address] [place] MCH (RBC) [Entitic mass] 22.0 pg Low 26.0-34.0 [facility] Comment on above: Order Comment: Speci men Type: BLOOD SPECIMENOrdering Facility: [facility] Address: [address] [place] [address] Performed By: #### 5 8410-2 ####[facility] LABORATORYCLIA [id number] [place] [address] [place] MCHC (RBC) [Mass/Vol] 28.9 g/dL Low 30.5-36.0 [facility] Comment on above: Order Comment: Speci men Type: BLOOD SPECIMENOrdering Facility: [facility] Address: [address] [place] [address] Performed By: #### 5 8410-2 ####[facility] LABORATORYCLIA [id number] [place] [address] [place] MCV (RBC) [Entitic vol] 76.1 fL Low 80.0-100.0 [facility] Comment on above: Order Comment: Speci men Type: BLOOD SPECIMENOrdering Facility: [facility] Address: [address] [place] [address] Performed By: #### 5 8410-2 ####[facility] LABORATORYCLIA [id number] [place] [address] [place] Nucleated RBC (Bld) [#/Vol] 10*3/uL Normal <0.01 [facility] Comment on above: Order Comment: Speci men Type: BLOOD SPECIMENOrdering Facility: [facility] Address: [address] [place] [address] Performed By: #### 5 8410-2 ####[facility] LABORATORYCLIA [id number] [place] [address] [place] Platelet mean volume (Bld) [Entitic vol] 9.6 fL Normal 9.0-12.7 [facility] Comment on above: Order Comment: Speci men Type: BLOOD SPECIMENOrdering Facility: [facility] Address: [address] [place] [address] Performed By: #### 5 8410-2 ####[facility] LABORATORYCLIA [id number] [place] [address] [place] Platelets (Bld) [#/Vol] 306 10*3/uL Normal 150-400 [facility] Comment on above: Order Comment: Speci men Type: BLOOD SPECIMENOrdering Facility: [facility] Address: [address] [place] [address] Performed By: #### 5 8410-2 ####[facility] ESTAT[facility]CREST LABORATORYCLIA [id number] [place] [address] [place] RBC (Bld) [#/Vol] 3.27 10*6/uL Low 4.20-6.00 [facility] Comment on above: Order Comment: Speci men Type: BLOOD SPECIMENOrdering Facility: [facility] Address: [address] [place] [address] Performed By: #### 5 8410-2 ####[facility] LABORATORYCLIA [id number] [place] [address] [place] WBC (Bld) [#/Vol] 7.79 10*3/uL Normal 3.70-11.00 [facility] Comment on above: Order Comment: Speci men Type: BLOOD SPECIMENOrdering Facility: [facility] Address: [address] [place] [address] Performed By: #### 5 8410-2 ####[facility] LABORATORYCLIA [id number] [place] [address] [place] JAVIER DIRECTon 05-18-2023 DAGT, POLYSPECIFIC AHG Negative Normal Cl [facility] Comment on above: Order Comment: Speci men Type: BLOOD SPECIMEN [facility] Address: [address] [place] [address] Performed By: #### T SCR #### [facility] CLIA [id number] [place] [address] [place] TYPE + SCREENon 05-18-2023 ABO A Normal [facility] Comment on above: Order Comment: Speci men Type: BLOOD SPECIMENOrdering Facility: [facility] Address: [address] [place] [address] Performed By: #### T SCR ####CC MAIN BLOOD BANKCLIA [id number] [place] [address] [place] HISTORICAL AB SCR STATUS Positive Abnormal [facility] Comment on above: Order Comment: Speci men Type: BLOOD SPECIMENOrdering Facility: [facility] Address: [address] [place] [address] Performed By: #### T SCR ####CC MAIN BLOOD BANKCLIA [id number] [place] [address] [place] Rh Nom (Bld) Positive Normal [facility] Comment on above: Order Comment: Speci men Type: BLOOD SPECIMENOrdering Facility: [facility] Address: [address] [place] [address] Performed By: #### T SCR ####CC MAIN BLOOD BANKCLIA [id number] [place] [address] [place] Basic metabolic 2000 panelon 05-17-2023 Anion gap [Moles/Vol] 15 mmol/L 9 - 18 mmol/L [facility] Calcium [Mass/Vol] 9.1 mg/dL 8.5 - 10. 2 mg/dL [facility] Chloride [Moles/Vol] 98 mmol/L 97 - 10 5 mmol/L [facility] CO2 [Moles/Vol] 23 mmol/L 22 - 30 mmol/L [facility] Creatinine [Mass/Vol] 0.61 mg/dL Low 0.73 - 1.22 mg/dL [facility] Estimated Glomerular Filtration Rate 113 mL/min/1.73m >=60 mL/min/1.73 m [facility] Glucose [Mass/Vol] 208 mg/dL High 74 - 99 mg/dL [facility] Potassium [Moles/Vol] 4.7 mmol/L 3.7 - 5.1 mmol/L [facility] Sodium [Moles/Vol] 136 mmol/L 136 - 144 mmol/L [facility] Urea nitrogen [Mass/Vol] 17 mg/dL 9 - 24 mg/dL [facility] Anion gap [Moles/Vol] 15 mmol/L Normal 9-18 [facility] Comment on above: Order Comment: Speci men Type: BLOOD SPECIMEN [facility] Address: [address] [place] [address] Performed By: #### 1 988-5 #### [facility] CLIA [id number] [address] [place] [address] [place] Calcium [Mass/Vol] 9.1 mg/dL Normal 8.5-10.2 [facility] Comment on above: Order Comment: Speci men Type: BLOOD SPECIMEN [facility]ing Facility: [facility] Address: [address] [place] [address] Performed By: #### 1 988-5 #### [facility] CLIA [id number] [address] [place] [address] [place] Chloride [Moles/Vol] 98 mmol/L Normal 97-105 [facility] Comment on above: Order Comment: Speci men Type: BLOOD SPECIMEN [facility]ing [facility] Address: [address] [place] [address] Performed By: #### 1 988-5 #### [facility] CLIA [id number] [address] [place] [address] [place] CO2 [Moles/Vol] 23 mmol/L Normal 22-30 [facility] Comment on above: Order Comment: Doroteo zavala Type: BLOOD SPECIMEN [facility] Address: [address] [place] [address] Performed By: #### 1 988-5 #### [facility] [place] [id number] [address] [place] [address] [place] Creatinine [Mass/Vol] 0.61 mg/dL Low 0.73-1.22 [facility] Comment on above: Order Comment: Doroteo zavala Type: BLOOD SPECIMEN [facility] Address: [address] [place] [address] Performed By: #### 1 988-5 #### [facility] [place] [id number] [address] [place] [address] [place] Creatinine and Glomerular filtration rate.predicted panel (S/P/Bld) 113 mL/min/1.73m??? Normal >=60 [facility] Comment on above: Order Comment: Doroteo zavala Type: BLOOD SPECIMEN [facility] Address: [address] [place] [address] Result Comment: Lola mated Glomerular Filtration Rate (eGFR) is calculated using the 2020 CKD-EPI creatinine equation. This equation utilizes serum creatinine, sex, and age as parameters. The creatinine assay has traceable calibration to isotope dilution-mass spectrometry. Refer to KDIGO guidelines for clinical interpretation. In patients with unstable renal function, e.g. those with acute kidney injury, the eGFR may not accurately reflect actual GFR. Performed By: #### 1 988-5 #### [facility] [place] [id number] [address] [place] [address] [place] Glucose [Mass/Vol] 208 mg/dL High 74-99 [facility] Comment on above: Order Comment: Doroteo zavala Type: BLOOD SPECIMEN [facility] Address: [address] [place] [address] Result Comment: The [place] Diabetes [employer] (ADA) provides guidance for cutoff values for fasting glucose and random glucose. The ADA defines fasting as no caloric intake for at least 8 hours. Fasting plasma glucose results between 100 to 125 mg/dL indicate increased risk for diabetes (prediabetes). Fasting plasma glucose results greater than or equal to 126 mg/dL meet the criteria for diagnosis of diabetes. In the absence of unequivocal hyperglycemia, results should be confirmed by repeat testing. In a patient with classic symptoms of hyperglycemia or hyperglycemic crisis, random plasma glucose results greater than or equal to 200 mg/dL meet the criteria for diagnosis of diabetes. Reference: Standards of Medical Care in Diabetes 2016, [place] [employer]. Diabetes Care. 2016.39(Suppl 1). Performed By: #### 1 988-5 #### [facility] CLIA [id number] [address] [place] [address] [place] Potassium [Moles/Vol] 4.7 mmol/L Normal 3.7-5.1 [facility] Comment on above: Order Comment: Doroteo zavala Type: BLOOD SPECIMEN [facility] Address: [address] [place] [address] Performed By: #### 1 988-5 #### [facility] CLIA [id number] [address] [place] [address] [place] Sodium [Moles/Vol] 136 mmol/L Normal 136-144 [facility] Comment on above: Order Comment: Doroteo zavala Type: BLOOD SPECIMEN [facility] Address: [address] [place] [address] Performed By: #### 1 988-5 #### [facility] CLIA [id number] [address] [place] [address] [place] Urea nitrogen [Mass/Vol] 17 mg/dL Normal 9-24 [facility] Comment on above: Order Comment: Doroteo zavala Type: BLOOD SPECIMEN [facility] Address: [address] [place] [address] Performed By: #### 1 988-5 #### [facility] CLIA [id number] [address] [place] [address] [place] CBC panel Auto (Bld)on 05-17 Erythrocyte distribution width (RBC) [Ratio] 18.7 % High 11.5 - 15.0 % [facility] Hematocrit (Bld) [Volume fraction] 25.7 % Low 39.0 - 51.0 % [facility] Hemoglobin (Bld) [Mass/Vol] 7.4 g/dL Low 13.0 - 17.0 g/dL [facility] MCH (RBC) [Entitic mass] 22.2 pg Low 26.0 - 34.0 pg [facility] MCHC (RBC) [Mass/Vol] 28.8 g/dL Low 30.5 - 36.0 g/dL [facility] MCV (RBC) [Entitic vol] 77.2 fL Low 80.0 - 100.0 fL [facility] Nucleated RBC (Bld) [#/Vol] <0.01 k/uL [facility] Platelet mean volume (Bld) [Entitic vol] 10.0 fL 9.0 - 12.7 fL [facility] Platelets (Bld) [#/Vol] 341 10*3/uL 150 - 400 k/uL [facility] RBC (Bld) [#/Vol] 3.33 10*6/uL Low 4.20 - 6.0 0 m/uL [facility] WBC (Bld) [#/Vol] 8.05 10*3/uL 3.70 - 11.00 k/uL [facility] Erythrocyte distribution width (RBC) [Ratio] 18.7 % High 11.5-15.0 [facility] Comment on above: Order Comment: Speci lucas Type: BLOOD SPECIMENOrdering Facility: [facility] Address: [address] [place] [address] Performed By: #### 5 8410-2 ####[facility]ORY[facility]IA [id number] [place] [address] [place] Hematocrit (Bld) [Volume fraction] 25.7 % Low 39.0-51.0 [facility] Comment on above: Order Comment: Speci lucas Type: BLOOD SPECIMENOrdering Facility: [facility] Address: [address] [place] [address] Performed By: #### 5 8410-2 ####[facility]ORATORYCLIA [id number] [place] [address] [place] Hemoglobin (Bld) [Mass/Vol] 7.4 g/dL Low 13.0-17.0 [facility] Comment on above: Order Comment: Speci men Type: BLOOD SPECIMENOrdering Facility: [facility] Address: [address] [place] [address] Performed By: #### 5 8410-2 ####[facility]ORY[facility]IA [id number] [place] [address] [place] MCH (RBC) [Entitic mass] 22.2 pg Low 26.0-34.0 [facility] Comment on above: Order Comment: Speci men Type: BLOOD SPECIMENOrdering Facility: [facility] Address: [address] [place] [address] Performed By: #### 5 8410-2 ####[facility]ORATORYCLIA [id number] [place] [address] [place] MCHC (RBC) [Mass/Vol] 28.8 g/dL Low 30.5-36.0 [facility] Comment on above: Order Comment: Speci men Type: BLOOD SPECIMENOrdering Facility: [facility] Address: [address] [place] [address] Performed By: #### 5 8410-2 ####[facility] LABORATORYCLIA [id number] [place] [address] [place] MCV (RBC) [Entitic vol] 77.2 fL Low 80.0-100.0 [facility] Comment on above: Order Comment: Speci men Type: BLOOD SPECIMENOrdering Facility: [facility] Address: [address] [place] [address] Performed By: #### 5 8410-2 ####[facility]ORYCLIA [id number] [place] [address] [place] Nucleated RBC (Bld) [#/Vol] 10*3/uL Normal <0.01 [facility] Comment on above: Order Comment: Speci men Type: BLOOD SPECIMENOrdering Facility: [facility] Address: [address] [place] [address] Performed By: #### 5 8410-2 ####[facility]ORYCLIA [id number] [place] [address] [place] Platelet mean volume (Bld) [Entitic vol] 10.0 fL Normal 9.0-12.7 [facility] Comment on above: Order Comment: Speci men Type: BLOOD SPECIMENOrdering Facility: [facility] Address: [address] [place] [address] Performed By: #### 5 8410-2 ####[facility]ORYCLIA [id number] [place] [address] [place] Platelets (Bld) [#/Vol] 341 10*3/uL Normal 150-400 [facility] Comment on above: Order Comment: Speci men Type: BLOOD SPECIMENOrdering Facility: [facility] Address: [address] [place] [address] Performed By: #### 5 8410-2 ####[facility]ORYCLIA [id number] [place] [address] [place] RBC (Bld) [#/Vol] 3.33 10*6/uL Low 4.20-6.00 [facility] Comment on above: Order Comment: Speci men Type: BLOOD SPECIMENOrdering Facility: [facility] Address: [address] [place] [address] Performed By: #### 5 8410-2 ####[facility]ORYCLIA [id number] [place] [address] [place] WBC (Bld) [#/Vol] 8.05 10*3/uL Normal 3.70-11.00 [facility] Comment on above: Order Comment: Speci men Type: BLOOD SPECIMENOrdering Facility: [facility] Address: [address] [place] [address] Performed By: #### 5 8410-2 ####[facility]ORYCLIA [id number] [place] [address] [place] CK CREATINE KINASEon 024 CK [Catalytic activity/Vol] 28 U/L Low 51 - 298 U/L [facility] CK SerPl-cCncon 05-17-2023 CK [Catalytic activity/Vol] 28 U/L Low 51-298 [facility] Comment on above: Order Comment: Doroteo zavala Type: BLOOD SPECIMENOrdering Facility: [facility] Address: [address] [place] [address] Performed By: #### 2 157-6 ####[facility]ORATORYCLIA [id number] [place] [address] [place] MAGNESIUM BLDon 05-17-2023 Magnesium [Mass/Vol] 1.8 mg/dL 1.7 - 2 .3 mg/dL [facility] Magnesium SerPl-mCncon 05-17 Magnesium [Mass/Vol] 1.8 mg/dL Normal 1.7-2.3 [facility] Comment on above: Order Comment: Doroteo zavala Type: BLOOD SPECIMEN [facility] Address: [address] [place] [address] Performed By: #### T SCR #### CC MAIN BLOOD BANK CLIA [id number] [address] [place] [address] [place] PHOSPHORUS INORGANICon 05-17 Phosphate [Mass/Vol] 4.4 mg/dL 2.7 - 4 .8 mg/dL [facility] PT panel Coag (PPP)on 2023 INR Coag (PPP) [Relative time] 1.0 {INR} 0.9 - 1.3 [facility] PT Coag (PPP) [Time] 10.3 s 9.7 - 1 3.0 sec [facility] INR Coag (PPP) [Relative time] 1.0 {INR} Normal 0.9-1.3 [facility] Comment on above: Order Comment: Doroteo zavala Type: BLOOD SPECIMENOrdering Facility: [facility] Address: [address] [place] [address] Result Comment: Daylin min K Antagonist (VKA) Therapeutic Range: INR 2 to 3 (Target INR of 2.5) Note: For patients treated with VKA drugs, such as warfarin, the [employer] [employer] 2012 Guideline recommends a therapeutic INR range of 2 to 3 (target INR of 2.5). This recommendation includes high-risk patients with antiphospholipid syndrome with previous arterial or venous thromboembolism, current-generation mechanical or bioprosthetic aortic heart valve replacement. Note: Patients with mechanical aortic valve replacement and additional risk factors for thromboembolic events (atrial fibrillation, previous thromboembolism, LV dysfunction, hypercoagulable conditions) or an older generation mechanical AVR (i.e., ball in-Cage) or any mechanical MVR should have a INR therapeutic range of 2.5 to 3.5 (target INR of 3). Kristian GH, et al. Chest 2012, 141:7S-47S Oscar RA, et al. [facility] 2017, 70: 252-289 Performed By: #### 3 4528-0 ####[facility]ATORYCLIA [id number] [place] [address] [place] PT Coag (PPP) [Time] 10.3 s Normal 9.7-13.0 [facility] Comment on above: Order Comment: Speci men Type: BLOOD SPECIMENOrdering Facility: [facility] Address: [address] [place] [address] Performed By: #### 3 4528-0 ####[facility]ORATORYCLIA [id number] [place] [address] [place] Phosphate SerPl-mCncon 05-17 Phosphate [Mass/Vol] 4.4 mg/dL Normal 2.7-4.8 [facility] Comment on above: Order Comment: Speci men Type: BLOOD SPECIMEN [facility] Address: [address] [place] [address] Performed By: #### 1 988-5 #### [facility] CLIA [id number] [address] [place] [address] [place] Bacteria Ur Culton 4 Bacteria identified Cx Nom (U) ORGANISM ID: 1 <10,000 CFU/ml Normal urogenital beverly Normal [facility] Comment on above: Performed By: #### 6 30-4 ####[facility] LABCLIA [id number] [id number] [id number] [place] CBC W Auto Differential pane l (Bld)on 05-16-2023 Basophils (Bld) [#/Vol] 0.08 10*3/uL Normal <0.11 [facility] Comment on above: Order Comment: Speci men Type: BLOOD SPECIMENOrdering Facility: [facility] Address: [address] [place] [address] Performed By: #### 5 7021-8 ####[facility]ATORYCLIA [id number] [place] [address] [place] Basophils/100 WBC (Bld) 0.8 % Normal [facility] Comment on above: Order Comment: Speci men Type: BLOOD SPECIMENOrdering Facility: [facility] Address: [address] [place] [address] Performed By: #### 5 7021-8 ####[facility]ATORYCLIA [id number] [place] [address] [place] Differential cell count method Nom (Bld) Auto Normal [facility] Comment on above: Order Comment: Speci men Type: BLOOD SPECIMENOrdering Facility: [facility] Address: [address] [place] [address] Performed By: #### 5 7021-8 ####[facility]ORATORYCLIA [id number] [place] [address] [place] Eosinophils (Bld) [#/Vol] 0.61 10*3/uL High <0.46 [facility] Comment on above: Order Comment: Speci men Type: BLOOD SPECIMENOrdering Facility: [facility] Address: [address] [place] [address] Performed By: #### 5 7021-8 ####[facility]ORYCLIA [id number] [place] [address] [place] Eosinophils/100 WBC (Bld) 6.0 % Normal [facility] Comment on above: Order Comment: Speci men Type: BLOOD SPECIMENOrdering Facility: [facility] Address: [address] [place] [address] Performed By: #### 5 7021-8 ####[facility]ORYCLIA [id number] [place] [address] [place] Erythrocyte distribution width (RBC) [Ratio] 18.6 % High 11.5-15.0 [facility] Comment on above: Order Comment: Speci men Type: BLOOD SPECIMENOrdering Facility: [facility] Address: [address] [place] [address] Performed By: #### 5 7021-8 ####[facility]ORATORYCLIA [id number] [place] [address] [place] Hematocrit (Bld) [Volume fraction] 30.1 % Low 39.0-51.0 [facility] Comment on above: Order Comment: Speci men Type: BLOOD SPECIMENOrdering Facility: [facility] Address: [address] [place] [address] Performed By: #### 5 7021-8 ####[facility]ORATORYCLIA [id number] [place] [address] [place] Hemoglobin (Bld) [Mass/Vol] 8.6 g/dL Low 13.0-17.0 [facility] Comment on above: Order Comment: Speci men Type: BLOOD SPECIMENOrdering Facility: [facility] Address: [address] [place] [address] Performed By: #### 5 7021-8 ####[facility]ORATORYCLIA [id number] [place] [address] [place] Immature granulocytes (Bld) [#/Vol] 0.04 10*3/uL Normal <0.10 [facility] Comment on above: Order Comment: Speci men Type: BLOOD SPECIMENOrdering Facility: [facility] Address: [address] [place] [address] Performed By: #### 5 7021-8 ####[facility]ORYCLIA [id number] [place] [address] [place] Immature granulocytes/100 WBC (Bld) 0.4 % Normal [facility] Comment on above: Order Comment: Speci men Type: BLOOD SPECIMENOrdering Facility: [facility] Address: [address] [place] [address] Performed By: #### 5 7021-8 ####[facility]ORYCLIA [id number] [place] [address] [place] Lymphocytes (Bld) [#/Vol] 2.92 10*3/uL Normal 1.00-4.00 [facility] Comment on above: Order Comment: Speci men Type: BLOOD SPECIMENOrdering Facility: [facility] Address: [address] [place] [address] Performed By: #### 5 7021-8 ####[facility]ORATORYCLIA [id number] [place] [address] [place] Lymphocytes/100 WBC (Bld) 28.8 % Normal [facility] Comment on above: Order Comment: Speci men Type: BLOOD SPECIMENOrdering Facility: [facility] Address: [address] [place] [address] Performed By: #### 5 7021-8 ####[facility]ORATORYCLIA [id number] [place] [address] [place] MCH (RBC) [Entitic mass] 22.2 pg Low 26.0-34.0 [facility] Comment on above: Order Comment: Speci men Type: BLOOD SPECIMENOrdering Facility: [facility] Address: [address] [place] [address] Performed By: #### 5 7021-8 ####[facility]ATORYCLIA [id number] [place] [address] [place] MCHC (RBC) [Mass/Vol] 28.6 g/dL Low 30.5-36.0 [facility] Comment on above: Order Comment: Speci men Type: BLOOD SPECIMENOrdering Facility: [facility] Address: [address] [place] [address] Performed By: #### 5 7021-8 ####[facility]ATORYCLIA [id number] [place] [address] [place] MCV (RBC) [Entitic vol] 77.8 fL Low 80.0-100.0 [facility] Comment on above: Order Comment: Speci men Type: BLOOD SPECIMENOrdering Facility: [facility] Address: [address] [place] [address] Performed By: #### 5 7021-8 ####[facility]ATORYCLIA [id number] [place] [address] [place] Monocytes (Bld) [#/Vol] 0.79 10*3/uL Normal <0.87 [facility] Comment on above: Order Comment: Speci men Type: BLOOD SPECIMENOrdering Facility: [facility] Address: [address] [place] [address] Performed By: #### 5 7021-8 ####[facility]ORATORYCLIA [id number] [place] [address] [place] Monocytes/100 WBC (Bld) 7.8 % Normal [facility] Comment on above: Order Comment: Speci men Type: BLOOD SPECIMENOrdering Facility: [facility] Address: [address] [place] [address] Performed By: #### 5 7021-8 ####[facility]ORATORYCLIA [id number] [place] [address] [place] Neutrophils (Bld) [#/Vol] 5.70 10*3/uL Normal 1.45-7.50 [facility] Comment on above: Order Comment: Speci men Type: BLOOD SPECIMENOrdering Facility: [facility] Address: [address] [place] [address] Performed By: #### 5 7021-8 ####[facility]ATORYCLIA [id number] [place] [address] [place] Neutrophils/100 WBC (Bld) 56.2 % Normal [facility] Comment on above: Order Comment: Speci men Type: BLOOD SPECIMENOrdering Facility: [facility] Address: [address] [place] [address] Performed By: #### 5 7021-8 ####[facility]ATORYCLIA [id number] [place] [address] [place] Nucleated RBC (Bld) [#/Vol] 10*3/uL Normal <0.01 [facility] Comment on above: Order Comment: Speci men Type: BLOOD SPECIMENOrdering Facility: [facility] Address: [address] [place] [address] Performed By: #### 5 7021-8 ####[facility] LABORATORYCLIA [id number] [place] [address] [place] Nucleated RBC/100 WBC (Bld) [Ratio] 0.0 /100 WBC Normal [facility] Comment on above: Order Comment: Speci men Type: BLOOD SPECIMENOrdering Facility: [facility] Address: [address] [place] [address] Performed By: #### 5 7021-8 ####[facility]ORATORYCLIA [id number] [place] [address] [place] Platelet mean volume (Bld) [Entitic vol] 9.5 fL Normal 9.0-12.7 [facility] Comment on above: Order Comment: Speci men Type: BLOOD SPECIMENOrdering Facility: [facility] Address: [address] [place] [address] Performed By: #### 5 7021-8 ####[facility]ORATORYCLIA [id number] [place] [address] [place] Platelets (Bld) [#/Vol] 335 10*3/uL Normal 150-400 [facility] Comment on above: Order Comment: Speci men Type: BLOOD SPECIMENOrdering Facility: [facility] Address: [address] [place] [address] Performed By: #### 5 7021-8 ####[facility]ORATORYCLIA [id number] [place] [address] [place] RBC (Bld) [#/Vol] 3.87 10*6/uL Low 4.20-6.00 [facility] Comment on above: Order Comment: Speci men Type: BLOOD SPECIMENOrdering Facility: [facility] Address: [address] [place] [address] Performed By: #### 5 7021-8 ####[facility] LABORATORYCLIA [id number] [place] [address] [place] WBC (Bld) [#/Vol] 10.14 10*3/uL Normal 3.70-11.00 [facility] Comment on above: Order Comment: Speci men Type: BLOOD SPECIMENOrdering Facility: [facility] Address: [address] [place] [address] Performed By: #### 5 7021-8 ####[facility] LABORATORYCLIA [id number] [place] [address] [place] CRP SerPl-mCncon 05-16-2023 CRP [Mass/Vol] 3.0 mg/dL High <0.9 [facility] Comment on above: Order Comment: Speci men Type: BLOOD SPECIMENOrdering Facility: [facility] Address: [address] [place] [address] Performed By: #### 1 988-5 ####[facility] LABORATORYCLIA [id number] [place] [address] [place] Urinalysis complete panel (U )on 05-16-2023 Bilirubin Ql (U) Negative Normal Negative [facility] Comment on above: Order Comment: Speci men Type: URINE SPECIMENOrdering Facility: [facility] Address: [address] [place] [address] Performed By: #### 2 4356-8 ####[facility] LABCLIA [id number] [facility] [place], [place] [address] [place] Clarity (Unsp spec) Turbid Abnormal Clear [facility] Comment on above: Order Comment: Speci men Type: URINE SPECIMENOrdering Facility: [facility] Address: [address] [place] [address] Performed By: #### 2 4356-8 ####[facility] LABCLIA [id number] [place] [address] [place] Color (U) Red Abnormal Yellow [facility] Comment on above: Order Comment: Speci men Type: URINE SPECIMENOrdering Facility: [facility] Address: [address] [place] [address] Performed By: #### 2 4356-8 ####[facility] LABCLIA [id number] [place] [address] [place] Glucose Test strip (U) [Mass/Vol] Negative Normal Negative [facility] Comment on above: Order Comment: Speci men Type: URINE SPECIMENOrdering Facility: [facility] Address: [address] [place] [address] Performed By: #### 2 4356-8 ####[facility] LABCLIA [id number] [place] [address] [place] Hemoglobin Ql (U) 3+ Abnormal Negative [facility] Comment on above: Order Comment: Speci men Type: URINE SPECIMENOrdering Facility: [facility] Address: [address] [place] [address] Performed By: #### 2 4356-8 ####[facility] LABCLIA [id number] [place] [address] [place] Ketones Ql (U) Negative Normal Negative [facility] Comment on above: Order Comment: Speci men Type: URINE SPECIMENOrdering Facility: [facility] Address: [address] [place] [address] Performed By: #### 2 4356-8 ####[facility] LABCLIA [id number] [place] [address] [place] Leukocyte esterase Test strip Ql (U) 2+ Abnormal Negative [facility] Comment on above: Order Comment: Speci men Type: URINE SPECIMENOrdering Facility: [facility] Address: [address] [place] [address] Performed By: #### 2 4356-8 ####[facility] LABCLIA [id number] [place] [address] [place] Nitrite Ql (U) Negative Normal Negative [facility] Comment on above: Order Comment: Speci men Type: URINE SPECIMENOrdering Facility: [facility] Address: [address] [place] [address] Performed By: #### 2 4356-8 ####[facility] LABCLIA [id number] [place] [address] [place] pH (U) 6.5 [pH] Normal 5.0-8.0 [facility] Comment on above: Order Comment: Speci men Type: URINE SPECIMENOrdering Facility: [facility] Address: [address] [place] [address] Performed By: #### 2 4356-8 ####[facility] LABIA [id number] [place] [address] [place] Protein (U) [Mass/Vol] Normal [facility] Comment on above: Order Comment: Speci men Type: URINE SPECIMENOrdering Facility: [facility] Address: [address] [place] [address] Result Comment: Visi ble blood causes falsely elevated results for analyte Protein. Due to this limitation, Protein will not be reported for patients whose urine contains visible blood. Performed By: #### 2 4356-8 ####[facility] LABCLIA [id number] [place] [address] [place] RBC LM.HPF (Urine sed) [#/Area] /[HPF] Abnormal 0-3 /HPF [facility] Comment on above: Order Comment: Speci men Type: URINE SPECIMENOrdering Facility: [facility] Address: [address] [place] [address] Performed By: #### 2 4356-8 ####[facility] LABCLIA [id number] [place] [address] [place] Specific gravity (U) [Rel density] 1.025 Normal 1.005-1.030 [facility] Comment on above: Order Comment: Speci men Type: URINE SPECIMENOrdering Facility: [facility] Address: [address] [place] [address] Performed By: #### 2 4356-8 ####[facility] LABCLIA [id number] [place] [address] [place] Urobilinogen Ql (U) 0.2 EU/dL Normal 0.2-1.0 EU/dL [facility] Comment on above: Order Comment: Speci men Type: URINE SPECIMENOrdering Facility: [facility] Address: [address] [place] [address] Performed By: #### 2 4356-8 ####[facility] LABCLIA [id number] [place] [address] [place] WBC LM.HPF (Urine sed) [#/Area] 11-25 /HPF Abnormal 0-5 /HPF [facility] Comment on above: Order Comment: Speci men Type: URINE SPECIMENOrdering Facility: [facility] Address: [address] [place] [address] Performed By: #### 2 4356-8 ####[facility] LABCLIA [id number] [place] [id number] [place] CBC W Auto Differential pane l (Bld)on 05-15-2023 Basophils (Bld) [#/Vol] 0.05 10*3/uL Normal <0.11 [facility] Comment on above: Order Comment: Speci men Type: BLOOD SPECIMENOrdering Facility: [facility] Address: [address] [place] [address] Performed By: #### 5 7021-8 ####[facility] LABORATORYCLIA [id number] [place] [address] [place] Basophils/100 WBC (Bld) 0.8 % [facility] Comment on above: Order Comment: Speci men Type: BLOOD SPECIMENOrdering Facility: [facility] Address: [address] [place] [address] Performed By: #### 5 7021-8 ####[facility]ORATORYCLIA [id number] [place] [address] [place] Differential cell count method Nom (Bld) Auto [facility] Comment on above: Order Comment: Speci men Type: BLOOD SPECIMENOrdering Facility: [facility] Address: [address] [place] [address] Performed By: #### 5 7021-8 ####[facility]ORATORYCLIA [id number] [place] [address] [place] Eosinophils (Bld) [#/Vol] 0.46 10*3/uL High <0.46 [facility] Comment on above: Order Comment: Speci men Type: BLOOD SPECIMENOrdering Facility: [facility] Address: [address] [place] [address] Performed By: #### 5 7021-8 ####[facility]ORATORYCLIA [id number] [place] [address] [place] Eosinophils/100 WBC (Bld) 6.9 % [facility] Comment on above: Order Comment: Speci men Type: BLOOD SPECIMENOrdering Facility: [facility] Address: [address] [place] [address] Performed By: #### 5 7021-8 ####[facility]ORATORYCLIA [id number] [place] [address] [place] Erythrocyte distribution width (RBC) [Ratio] 18.7 % High 11.5-15.0 [facility] Comment on above: Order Comment: Speci men Type: BLOOD SPECIMENOrdering Facility: [facility] Address: [address] [place] [address] Performed By: #### 5 7021-8 ####[facility]ORATORYCLIA [id number] [place] [address] [place] Hematocrit (Bld) [Volume fraction] 33.7 % Low 39.0-51.0 [facility] Comment on above: Order Comment: Speci men Type: BLOOD SPECIMENOrdering Facility: [facility] Address: [address] [place] [address] Performed By: #### 5 7021-8 ####[facility]ORATORYCLIA [id number] [place] [address] [place] Hemoglobin (Bld) [Mass/Vol] 9.5 g/dL Low 13.0-17.0 [facility] Comment on above: Order Comment: Speci men Type: BLOOD SPECIMENOrdering Facility: [facility] Address: [address] [place] [address] Performed By: #### 5 7021-8 ####[facility]ORATORYCLIA [id number] [place] [address] [place] Immature granulocytes (Bld) [#/Vol] 0.03 10*3/uL Normal <0.10 [facility] Comment on above: Order Comment: Speci men Type: BLOOD SPECIMENOrdering Facility: [facility] Address: [address] [place] [address] Performed By: #### 5 7021-8 ####[facility]ORATORYCLIA [id number] [place] [address] [place] Immature granulocytes/100 WBC (Bld) 0.5 % Normal [facility] Comment on above: Order Comment: Speci men Type: BLOOD SPECIMENOrdering Facility: [facility] Address: [address] [place] [address] Performed By: #### 5 7021-8 ####[facility]ORATORYCLIA [id number] [place] [address] [place] Lymphocytes (Bld) [#/Vol] 2.68 10*3/uL Normal 1.00-4.00 [facility] Comment on above: Order Comment: Speci men Type: BLOOD SPECIMENOrdering Facility: [facility] Address: [address] [place] [address] Performed By: #### 5 7021-8 ####[facility]ORATORYCLIA [id number] [place] [address] [place] Lymphocytes/100 WBC (Bld) 40.5 % Normal [facility] Comment on above: Order Comment: Speci men Type: BLOOD SPECIMENOrdering Facility: [facility] Address: [address] [place] [address] Performed By: #### 5 7021-8 ####[facility]ORATORYCLIA [id number] [place] [address] [place] MCH (RBC) [Entitic mass] 21.9 pg Low 26.0-34.0 [facility] Comment on above: Order Comment: Speci men Type: BLOOD SPECIMENOrdering Facility: [facility] Address: [address] [place] [address] Performed By: #### 5 7021-8 ####[facility]ORATORYCLIA [id number] [place] [address] [place] MCHC (RBC) [Mass/Vol] 28.2 g/dL Low 30.5-36.0 [facility] Comment on above: Order Comment: Speci men Type: BLOOD SPECIMENOrdering Facility: [facility] Address: [address] [place] [address] Performed By: #### 5 7021-8 ####[facility]ORATORYCLIA [id number] [place] [address] [place] MCV (RBC) [Entitic vol] 77.6 fL Low 80.0-100.0 [facility] Comment on above: Order Comment: Speci men Type: BLOOD SPECIMENOrdering Facility: [facility] Address: [address] [place] [address] Performed By: #### 5 7021-8 ####[facility]ORATORYCLIA [id number] [place] [address] [place] Monocytes (Bld) [#/Vol] 0.66 10*3/uL Normal <0.87 [facility] Comment on above: Order Comment: Speci men Type: BLOOD SPECIMENOrdering Facility: [facility] Address: [address] [place] [address] Performed By: #### 5 7021-8 ####[facility]ATORYCLIA [id number] [place] [address] [place] Monocytes/100 WBC (Bld) 10.0 % Normal [facility] Comment on above: Order Comment: Speci men Type: BLOOD SPECIMENOrdering Facility: [facility] Address: [address] [place] [address] Performed By: #### 5 7021-8 ####[facility]ORATORYCLIA [id number] [place] [address] [place] Neutrophils (Bld) [#/Vol] 2.74 10*3/uL Normal 1.45-7.50 [facility] Comment on above: Order Comment: Speci men Type: BLOOD SPECIMENOrdering Facility: [facility] Address: [address] [place] [address] Performed By: #### 5 7021-8 ####[facility]ORATORYCLIA [id number] [place] [address] [place] Neutrophils/100 WBC (Bld) 41.3 % Normal [facility] Comment on above: Order Comment: Speci men Type: BLOOD SPECIMENOrdering Facility: [facility] Address: [address] [place] [address] Performed By: #### 5 7021-8 ####[facility]ATORYCLIA [id number] [place] [address] [place] Nucleated RBC (Bld) [#/Vol] 10*3/uL Normal <0.01 [facility] Comment on above: Order Comment: Speci men Type: BLOOD SPECIMENOrdering Facility: [facility] Address: [address] [place] [address] Performed By: #### 5 7021-8 ####[facility]ORATORYCLIA [id number] [place] [address] [place] Nucleated RBC/100 WBC (Bld) [Ratio] 0.0 /100 WBC Normal [facility] Comment on above: Order Comment: Speci men Type: BLOOD SPECIMENOrdering Facility: [facility] Address: [address] [place] [address] Performed By: #### 5 7021-8 ####[facility]ORATORYCLIA [id number] [place] [address] [place] Platelet mean volume (Bld) [Entitic vol] 9.4 fL Normal 9.0-12.7 [facility] Comment on above: Order Comment: Speci men Type: BLOOD SPECIMENOrdering Facility: [facility] Address: [address] [place] [address] Performed By: #### 5 7021-8 ####[facility]ORATORYCLIA [id number] [place] [address] [place] Platelets (Bld) [#/Vol] 313 10*3/uL Normal 150-400 [facility] Comment on above: Order Comment: Speci men Type: BLOOD SPECIMENOrdering Facility: [facility] Address: [address] [place] [address] Performed By: #### 5 7021-8 ####[facility]ORATORYCLIA [id number] [place] [address] [place] RBC (Bld) [#/Vol] 4.34 10*6/uL Normal 4.20-6.00 [facility] Comment on above: Order Comment: Speci men Type: BLOOD SPECIMENOrdering Facility: [facility] Address: [address] [place] [address] Performed By: #### 5 7021-8 ####[facility]ORATORYCLIA [id number] [place] [address] [place] WBC (Bld) [#/Vol] 6.62 10*3/uL Normal 3.70-11.00 [facility] Comment on above: Order Comment: Speci men Type: BLOOD SPECIMENOrdering Facility: [facility] Address: [address] [place] [address] Performed By: #### 5 7021-8 ####[facility]ORATORYCLIA [id number] [place] [address] [place] Comprehensive metabolic 2000 panelon 05-15-2023 Albumin [Mass/Vol] 3.7 g/dL Low 3.9-4.9 [facility] Comment on above: Order Comment: Speci men Type: BLOOD SPECIMENOrdering Facility: [facility] Address: [address] [place] [address] Performed By: #### 2 4323-8 ####[facility]ORATORYCLIA [id number] [place] [address] [place] ALP [Catalytic activity/Vol] 82 U/L Normal 38-113 [facility] Comment on above: Order Comment: Speci men Type: BLOOD SPECIMENOrdering Facility: [facility] Address: [address] [place] [address] Performed By: #### 2 4323-8 ####[facility]ORATORYCLIA [id number] [place] [address] [place] ALT [Catalytic activity/Vol] 11 U/L Normal 10-54 [facility] Comment on above: Order Comment: Speci men Type: BLOOD SPECIMENOrdering Facility: [facility] Address: [address] [place] [address] Performed By: #### 2 4323-8 ####[facility]ATORYCLIA [id number] [place] [address] [place] Anion gap [Moles/Vol] 14 mmol/L Normal 9-18 [facility] Comment on above: Order Comment: Speci men Type: BLOOD SPECIMENOrdering Facility: [facility] Address: [address] [place] [address] Performed By: #### 2 4323-8 ####[facility]ORATORYCLIA [id number] [place] [address] [place] AST [Catalytic activity/Vol] 16 U/L Normal 14-40 [facility] Comment on above: Order Comment: Speci men Type: BLOOD SPECIMENOrdering Facility: [facility] Address: [address] [place] [address] Performed By: #### 2 4323-8 ####[facility]ORATORYCLIA [id number] [place] [address] [place] Bilirubin [Mass/Vol] 0.2 mg/dL Normal 0.2-1.3 [facility] Comment on above: Order Comment: Speci men Type: BLOOD SPECIMENOrdering Facility: [facility] Address: [address] [place] [address] Performed By: #### 2 4323-8 ####[facility]ORATORYCLIA [id number] [place] [address] [place] Calcium [Mass/Vol] 9.1 mg/dL Normal 8.5-10.2 [facility] Comment on above: Order Comment: Speci men Type: BLOOD SPECIMENOrdering Facility: [facility] Address: [address] [place] [address] Performed By: #### 2 4323-8 ####[facility]ORATORYCLIA [id number] [place] [address] [place] Chloride [Moles/Vol] 103 mmol/L Normal 97-105 [facility] Comment on above: Order Comment: Speci men Type: BLOOD SPECIMENOrdering Facility: [facility] Address: [address] [place] [address] Performed By: #### 2 4323-8 ####[facility]ATORYCLIA [id number] [place] [address] [place] CO2 [Moles/Vol] 24 mmol/L Normal 22-30 [facility] Comment on above: Order Comment: Speci men Type: BLOOD SPECIMENOrdering Facility: [facility] Address: [address] [place] [address] Performed By: #### 2 4323-8 ####[facility]ATORYCLIA [id number] [place] [address] [place] Creatinine [Mass/Vol] 0.52 mg/dL Low 0.73-1.22 [facility] Comment on above: Order Comment: Doroteo zavala Type: BLOOD SPECIMENOrdering Facility: [facility] Address: [address] [place] [address] Performed By: #### 2 4323-8 ####[facility] LABORATORYCLIA [id number] [place] [address] [place] Creatinine and Glomerular filtration rate.predicted panel (S/P/Bld) 119 mL/min/1.73m??? Normal >=60 [facility] Comment on above: Order Comment: Doroteo zavala Type: BLOOD SPECIMENOrdering Facility: [facility] Address: [address] [place] [address] Result Comment: Lola mated Glomerular Filtration Rate (eGFR) is calculated using the 2020 CKD-EPI creatinine equation. This equation utilizes serum creatinine, sex, and age as parameters. The creatinine assay has traceable calibration to isotope dilution-mass spectrometry. Refer to KDIGO guidelines for clinical interpretation. In patients with unstable renal function, e.g. those with acute kidney injury, the eGFR may not accurately reflect actual GFR. Performed By: #### 2 4323-8 ####[facility] LABORATORYCLIA [id number] [place] [address] [place] Glucose [Mass/Vol] 231 mg/dL High 74-99 [facility] Comment on above: Order Comment: Doroteo zavala Type: BLOOD SPECIMENOrdering Facility: [facility] Address: [address] [place] [address] Result Comment: The [place] [employer] (ADA) provides guidance for cutoff values for fasting glucose and random glucose. The ADA defines fasting as no caloric intake for at least 8 hours. Fasting plasma glucose results between 100 to 125 mg/dL indicate increased risk for diabetes (prediabetes).Fasting plasma glucose results greater than or equal to 126 mg/dL meet the criteria for diagnosis of diabetes. In the absence of unequivocal hyperglycemia, results should be confirmed by repeat testing. In a patient with classic symptoms of hyperglycemia or hyperglycemic crisis, random plasma glucose results greater than or equal to 200 mg/dL meet the criteria for diagnosis of diabetes.Reference: Standards of Medical Care in Diabetes 2016, [place] [employer]. Diabetes Care. 2016.39(Suppl 1). Performed By: #### 2 4323-8 ####[facility]ORATORYCLIA [id number] [place] [address] [place] Potassium [Moles/Vol] 4.7 mmol/L Normal 3.7-5.1 [facility] Comment on above: Order Comment: Doroteo zavala Type: BLOOD SPECIMENOrdering Facility: [facility] Address: [address] [place] [address] Performed By: #### 2 4323-8 ####[facility]ORATORYCLIA [id number] [place] [address] [place] Protein [Mass/Vol] 6.7 g/dL Normal 6.3-8.0 [facility] Comment on above: Order Comment: Doroteo zavala Type: BLOOD SPECIMENOrdering Facility: [facility] Address: [address] [place] [address] Performed By: #### 2 4323-8 ####[facility]ORATORYCLIA [id number] [place] [address] [place] Sodium [Moles/Vol] 141 mmol/L Normal 136-144 [facility] Comment on above: Order Comment: Doroteo zavala Type: BLOOD SPECIMENOrdering Facility: [facility] Address: [address] [place] [address] Performed By: #### 2 4323-8 ####[facility]ATORYCLIA [id number] [place] [address] [place] Urea nitrogen [Mass/Vol] 11 mg/dL Normal 9-24 [facility] Comment on above: Order Comment: Doroteo zavala Type: BLOOD SPECIMENOrdering Facility: [facility] Address: [address] [place] [address] Performed By: #### 2 4323-8 ####[facility]ORATORYCLIA [id number] [place] [address] [place] CBC W Auto Differential pane l (Bld)on 05-09-2023 Basophils (Bld) [#/Vol] 0.09 10*3/uL Normal <0.11 [facility] Comment on above: Order Comment: Speci men Type: BLOOD SPECIMENOrdering Facility: [facility] Address: [address] [place] [address] Performed By: #### 5 7021-8 ####[facility]ORATORYCLIA [id number] [place] [address] [place] Basophils/100 WBC (Bld) 1.0 % Normal [facility] Comment on above: Order Comment: Speci men Type: BLOOD SPECIMENOrdering Facility: [facility] Address: [address] [place] [address] Performed By: #### 5 7021-8 ####[facility]ORATORYCLIA [id number] [place] [address] [place] Differential cell count method Nom (Bld) Auto Normal [facility] Comment on above: Order Comment: Speci men Type: BLOOD SPECIMENOrdering Facility: [facility] Address: [address] [place] [address] Performed By: #### 5 7021-8 ####[facility]ORATORYCLIA [id number] [place] [address] [place] Eosinophils (Bld) [#/Vol] 0.69 10*3/uL High <0.46 [facility] Comment on above: Order Comment: Speci men Type: BLOOD SPECIMENOrdering Facility: [facility] Address: [address] [place] [address] Performed By: #### 5 7021-8 ####[facility]ATORYCLIA [id number] [place] [address] [place] Eosinophils/100 WBC (Bld) 7.8 % Normal [facility] Comment on above: Order Comment: Speci men Type: BLOOD SPECIMENOrdering Facility: [facility] Address: [address] [place] [address] Performed By: #### 5 7021-8 ####[facility]ORATORYCLIA [id number] [place] [address] [place] Erythrocyte distribution width (RBC) [Ratio] 19.8 % High 11.5-15.0 [facility] Comment on above: Order Comment: Speci men Type: BLOOD SPECIMENOrdering Facility: [facility] Address: [address] [place] [address] Performed By: #### 5 7021-8 ####[facility]ORATORYCLIA [id number] [place] [address] [place] Hematocrit (Bld) [Volume fraction] 30.9 % Low 39.0-51.0 [facility] Comment on above: Order Comment: Speci men Type: BLOOD SPECIMENOrdering Facility: [facility] Address: [address] [place] [address] Performed By: #### 5 7021-8 ####[facility] LABORATORYCLIA [id number] [place] [address] [place] Hemoglobin (Bld) [Mass/Vol] 8.7 g/dL Low 13.0-17.0 [facility] Comment on above: Order Comment: Speci men Type: BLOOD SPECIMENOrdering Facility: [facility] Address: [address] [place] [address] Performed By: #### 5 7021-8 ####[facility] LABORATORYCLIA [id number] [place] [address] [place] Immature granulocytes (Bld) [#/Vol] 0.07 10*3/uL Normal <0.10 [facility] Comment on above: Order Comment: Speci men Type: BLOOD SPECIMENOrdering Facility: [facility] Address: [address] [place] [address] Performed By: #### 5 7021-8 ####[facility] LABORATORYCLIA [id number] [place] [address] [place] Immature granulocytes/100 WBC (Bld) 0.8 % Normal [facility] Comment on above: Order Comment: Speci men Type: BLOOD SPECIMENOrdering Facility: [facility] Address: [address] [place] [address] Performed By: #### 5 7021-8 ####[facility] LABORATORYCLIA [id number] [place] [address] [place] Lymphocytes (Bld) [#/Vol] 2.85 10*3/uL Normal 1.00-4.00 [facility] Comment on above: Order Comment: Speci men Type: BLOOD SPECIMENOrdering Facility: [facility] Address: [address] [place] [address] Performed By: #### 5 7021-8 ####[facility] LABORATORYCLIA [id number] [place] [address] [place] Lymphocytes/100 WBC (Bld) 32.2 % [facility] Comment on above: Order Comment: Speci men Type: BLOOD SPECIMENOrdering Facility: [facility] Address: [address] [place] [address] Performed By: #### 5 7021-8 ####[facility] LABORATORYCLIA [id number] [place] [address] [place] MCH (RBC) [Entitic mass] 22.3 pg Low 26.0-34.0 [facility] Comment on above: Order Comment: Speci men Type: BLOOD SPECIMENOrdering Facility: [facility] Address: [address] [place] [address] Performed By: #### 5 7021-8 ####[facility] LABORATORYCLIA [id number] [place] [address] [place] MCHC (RBC) [Mass/Vol] 28.2 g/dL Low 30.5-36.0 [facility] Comment on above: Order Comment: Speci men Type: BLOOD SPECIMENOrdering Facility: [facility] Address: [address] [place] [address] Performed By: #### 5 7021-8 ####[facility] LABORATORYCLIA [id number] [place] [address] [place] MCV (RBC) [Entitic vol] 79.0 fL Low 80.0-100.0 [facility] Comment on above: Order Comment: Speci men Type: BLOOD SPECIMENOrdering Facility: [facility] Address: [address] [place] [address] Performed By: #### 5 7021-8 ####[facility] LABORATORYCLIA [id number] [place] [address] [place] Monocytes (Bld) [#/Vol] 0.68 10*3/uL Normal <0.87 [facility] Comment on above: Order Comment: Speci men Type: BLOOD SPECIMENOrdering Facility: [facility] Address: [address] [place] [address] Performed By: #### 5 7021-8 ####[facility] LABORATORYCLIA [id number] [place] [address] [place] Monocytes/100 WBC (Bld) 7.7 % Normal [facility] Comment on above: Order Comment: Speci men Type: BLOOD SPECIMENOrdering Facility: [facility] Address: [address] [place] [address] Performed By: #### 5 7021-8 ####[facility] LABORATORYCLIA [id number] [place] [address] [place] Neutrophils (Bld) [#/Vol] 4.48 10*3/uL Normal 1.45-7.50 [facility] Comment on above: Order Comment: Speci men Type: BLOOD SPECIMENOrdering Facility: [facility] Address: [address] [place] [address] Performed By: #### 5 7021-8 ####[facility] LABORATORYCLIA [id number] [place] [address] [place] Neutrophils/100 WBC (Bld) 50.5 % Normal [facility] Comment on above: Order Comment: Speci men Type: BLOOD SPECIMENOrdering Facility: [facility] Address: [address] [place], [place] [address] Performed By: #### 5 7021-8 ####[facility] LABORATORYCLIA [id number] [place] [address] [place] Nucleated RBC (Bld) [#/Vol] 10*3/uL Normal <0.01 [facility] Comment on above: Order Comment: Speci men Type: BLOOD SPECIMENOrdering Facility: [facility] Address: [address] [place] [address] Performed By: #### 5 7021-8 ####[facility] LABORATORYCLIA [id number] [place] [address] [place] Nucleated RBC/100 WBC (Bld) [Ratio] 0.0 /100 WBC Normal [facility] Comment on above: Order Comment: Speci men Type: BLOOD SPECIMENOrdering Facility: [facility] Address: [address] [place] [address] Performed By: #### 5 7021-8 ####[facility] LABORATORYCLIA [id number] [place] [address] [place] Platelet mean volume (Bld) [Entitic vol] 9.4 fL Normal 9.0-12.7 [facility] Comment on above: Order Comment: Speci men Type: BLOOD SPECIMENOrdering Facility: [facility] Address: [address] [place] [address] Performed By: #### 5 7021-8 ####[facility] LABORATORYCLIA [id number] [place] [address] [place] Platelets (Bld) [#/Vol] 374 10*3/uL Normal 150-400 [facility] Comment on above: Order Comment: Speci men Type: BLOOD SPECIMENOrdering Facility: [facility] Address: [address] [place] [address] Performed By: #### 5 7021-8 ####[facility] LABORATORYCLIA [id number] [place] [address] [place] RBC (Bld) [#/Vol] 3.91 10*6/uL Low 4.20-6.00 [facility] Comment on above: Order Comment: Speci men Type: BLOOD SPECIMENOrdering Facility: [facility] Address: [address] [place] [address] Performed By: #### 5 7021-8 ####[facility]ORATORYCLIA [id number] [place] [address] [place] WBC (Bld) [#/Vol] 8.86 10*3/uL Normal 3.70-11.00 [facility] Comment on above: Order Comment: Speci men Type: BLOOD SPECIMENOrdering Facility: [facility] Address: [address] [place] [address] Performed By: #### 5 7021-8 ####[facility] LABORATORYCLIA [id number] [place] [address] [place] CK SerPl-cCncon 05-09-2023 CK [Catalytic activity/Vol] 19 U/L Low 51-298 [facility] Comment on above: Order Comment: Speci men Type: BLOOD SPECIMENOrdering Facility: [facility] Address: [address] [place] [address] Performed By: #### 2 157-6 ####[facility] LABORATORYCLIA [id number] [place] [address] [place] CRP SerPl-mCncon 05-09-2023 CRP [Mass/Vol] 2.3 mg/dL High <0.9 [facility] Comment on above: Order Comment: Speci men Type: BLOOD SPECIMENOrdering Facility: [facility] Address: [address] [place] [address] Performed By: #### 1 988-5 ####[facility] LABORATORYCLIA [id number] [place] [address] [place] Comprehensive metabolic 2000 panelon 05-09-2023 Albumin [Mass/Vol] 3.9 g/dL Normal 3.9-4.9 [facility] Comment on above: Order Comment: Speci men Type: BLOOD SPECIMENOrdering Facility: [facility] Address: [address] [place] [address] Performed By: #### 2 4323-8 ####[facility] LABORATORYCLIA [id number] [place] [address] [place] ALP [Catalytic activity/Vol] 82 U/L Normal 38-113 [facility] Comment on above: Order Comment: Speci men Type: BLOOD SPECIMENOrdering Facility: [facility] Address: [address] [place] [address] Performed By: #### 2 4323-8 ####[facility] LABORATORYCLIA [id number] [place] [address] [place] ALT [Catalytic activity/Vol] 10 U/L Normal 10-54 [facility] Comment on above: Order Comment: Speci men Type: BLOOD SPECIMENOrdering Facility: [facility] Address: [address] [place] [address] Performed By: #### 2 4323-8 ####[facility] LABORATORYCLIA [id number] [place] [address] [place] Anion gap [Moles/Vol] 16 mmol/L Normal 9-18 [facility] Comment on above: Order Comment: Speci men Type: BLOOD SPECIMENOrdering Facility: [facility] Address: [address] [place] [address] Performed By: #### 2 4323-8 ####[facility] LABORATORYCLIA [id number] [place] [address] [place] AST [Catalytic activity/Vol] 15 U/L Normal 14-40 [facility] Comment on above: Order Comment: Speci men Type: BLOOD SPECIMENOrdering Facility: [facility] Address: [address] [place] [address] Performed By: #### 2 4323-8 ####[facility] LABORATORYCLIA [id number] [place] [address] [place] Bilirubin [Mass/Vol] 0.2 mg/dL Normal 0.2-1.3 [facility] Comment on above: Order Comment: Speci men Type: BLOOD SPECIMENOrdering Facility: [facility] Address: [address] [place] [address] Performed By: #### 2 4323-8 ####[facility] LABORATORYCLIA [id number] [place] [address] [place] Calcium [Mass/Vol] 9.4 mg/dL Normal 8.5-10.2 [facility] Comment on above: Order Comment: Speci men Type: BLOOD SPECIMENOrdering Facility: [facility] Address: [address] [place] [address] Performed By: #### 2 4323-8 ####[facility] LABORATORYCLIA [id number] [place] [address] [place] Chloride [Moles/Vol] 98 mmol/L Normal 97-105 [facility] Comment on above: Order Comment: Speci men Type: BLOOD SPECIMENOrdering Facility: [facility] Address: [address] [place] [address] Performed By: #### 2 4323-8 ####[facility] LABORATORYCLIA [id number] [place] [address] [place] CO2 [Moles/Vol] 24 mmol/L Normal 22-30 [facility] Comment on above: Order Comment: Speci men Type: BLOOD SPECIMENOrdering Facility: [facility] Address: [address] [place] [address] Performed By: #### 2 4323-8 ####[facility] LABORATORYCLIA [id number] [place] [address] [place] Creatinine [Mass/Vol] 0.47 mg/dL Low 0.73-1.22 [facility] Comment on above: Order Comment: Speci men Type: BLOOD SPECIMENOrdering Facility: [facility] Address: [address] [place] [address] Performed By: #### 2 4323-8 ####[facility] LABORATORYCLIA [id number] [place] [address] [place] Creatinine and Glomerular filtration rate.predicted panel (S/P/Bld) 123 mL/min/1.73m??? Normal >=60 [facility] Comment on above: Order Comment: Doroteo zavala Type: BLOOD SPECIMENOrdering Facility: [facility] Address: [address] [place] [address] Result Comment: Lola mated Glomerular Filtration Rate (eGFR) is calculated using the 2020 CKD-EPI creatinine equation. This equation utilizes serum creatinine, sex, and age as parameters. The creatinine assay has traceable calibration to isotope dilution-mass spectrometry. Refer to KDIGO guidelines for clinical interpretation. In patients with unstable renal function, e.g. those with acute kidney injury, the eGFR may not accurately reflect actual GFR. Performed By: #### 2 4323-8 ####[facility] LABORATORYCLIA [id number] [place] [address] [place] Glucose [Mass/Vol] 196 mg/dL High 74-99 [facility] Comment on above: Order Comment: Doroteo zavala Type: BLOOD SPECIMENOrdering Facility: [facility] Address: [address] [place] [address] Result Comment: The [place] [employer] (ADA) provides guidance for cutoff values for fasting glucose and random glucose. The ADA defines fasting as no caloric intake for at least 8 hours. Fasting plasma glucose results between 100 to 125 mg/dL indicate increased risk for diabetes (prediabetes).Fasting plasma glucose results greater than or equal to 126 mg/dL meet the criteria for diagnosis of diabetes. In the absence of unequivocal hyperglycemia, results should be confirmed by repeat testing. In a patient with classic symptoms of hyperglycemia or hyperglycemic crisis, random plasma glucose results greater than or equal to 200 mg/dL meet the criteria for diagnosis of diabetes.Reference: Standards of Medical Care in Diabetes 2016, [place] [employer]. Diabetes Care. 2016.39(Suppl 1). Performed By: #### 2 4323-8 ####[facility] LABORATORYCLIA [id number] [place] [address] [place] Potassium [Moles/Vol] 4.3 mmol/L Normal 3.7-5.1 [facility] Comment on above: Order Comment: Doroteo zavala Type: BLOOD SPECIMENOrdering Facility: [facility] Address: [address] [place] [address] Performed By: #### 2 4323-8 ####[facility] LABORATORYCLIA [id number] [place] [address] [place] Protein [Mass/Vol] 6.7 g/dL Normal 6.3-8.0 [facility] Comment on above: Order Comment: Speci men Type: BLOOD SPECIMENOrdering Facility: [facility] Address: [address] [place] [address] Performed By: #### 2 4323-8 ####[facility] LABORATORYCLIA [id number] [place] [address] [place] Sodium [Moles/Vol] 138 mmol/L Normal 136-144 [facility] Comment on above: Order Comment: Speci men Type: BLOOD SPECIMENOrdering Facility: [facility] Address: [address] [place] [address] Performed By: #### 2 4323-8 ####[facility] LABORATORYCLIA [id number] [place] [address] [place] Urea nitrogen [Mass/Vol] 12 mg/dL Normal 9-24 [facility] Comment on above: Order Comment: Speci men Type: BLOOD SPECIMENOrdering Facility: [facility] Address: [address] [place] [address] Performed By: #### 2 4323-8 ####[facility] LABORATORYCLIA [id number] [place] [address] [place] Basic metabolic 2000 panelon 05-05-2023 Anion gap [Moles/Vol] 12 mmol/L Normal 9-18 [facility] Comment on above: Order Comment: Speci men Type: BLOOD SPECIMENOrdering Facility: [facility] Address: [address] [place] [address] Performed By: #### 2 4321-2 ####[facility] LABORATORYCLIA [id number] [place] [address] [place] Calcium [Mass/Vol] 9.0 mg/dL Normal 8.5-10.2 [facility] Comment on above: Order Comment: Speci men Type: BLOOD SPECIMENOrdering Facility: [facility] Address: [address] [place] [address] Performed By: #### 2 4321-2 ####[facility] LABORATORYCLIA [id number] [place] [address] [place] Chloride [Moles/Vol] 100 mmol/L Normal 97-105 [facility] Comment on above: Order Comment: Speci men Type: BLOOD SPECIMENOrdering Facility: [facility] Address: [address] [place] [address] Performed By: #### 2 4321-2 ####[facility] LABORATORYCLIA [id number] [place] [address] [place] CO2 [Moles/Vol] 27 mmol/L Normal 22-30 [facility] Comment on above: Order Comment: Speci men Type: BLOOD SPECIMENOrdering Facility: [facility] Address: [address] [place] [address] Performed By: #### 2 4321-2 ####[facility] LABORATORYCLIA [id number] [place] [address] [place] Creatinine [Mass/Vol] 0.48 mg/dL Low 0.73-1.22 [facility] Comment on above: Order Comment: Speci men Type: BLOOD SPECIMENOrdering Facility: [facility] Address: [address] [place] [address] Performed By: #### 2 4321-2 ####[facility] LABORATORYCLIA [id number] [place] [address] [place] Estimated Glomerular Filtration Rate 122 mL/min/1.73m >=60 mL/min/1.73 m [facility] Glucose [Mass/Vol] 163 mg/dL High 74-99 [facility] Comment on above: Order Comment: Speci men Type: BLOOD SPECIMENOrdering Facility: [facility] Address: [address] [place] [address] Result Comment: The [place] Diabetes Association (ADA) provides guidance for cutoff values for fasting glucose and random glucose. The ADA defines fasting as no caloric intake for at least 8 hours. Fasting plasma glucose results between 100 to 125 mg/dL indicate increased risk for diabetes (prediabetes). Fasting plasma glucose results greater than or equal to 126 mg/dL meet the criteria for diagnosis of diabetes. In the absence of unequivocal hyperglycemia, results should be confirmed by repeat testing. In a patient with classic symptoms of hyperglycemia or hyperglycemic crisis, random plasma glucose results greater than or equal to 200 mg/dL meet the criteria for diagnosis of diabetes. Reference: Standards of Medical Care in Diabetes 2016, [place] [employer]. Diabetes Care. 2016.39(Suppl 1). Performed By: #### 2 4321-2 ####[facility] LABORATORYCLIA [id number] [place] [address] [place] Potassium [Moles/Vol] 4.8 mmol/L Normal 3.7-5.1 [facility] Comment on above: Order Comment: Doroteo zavala Type: BLOOD SPECIMENOrdering Facility: [facility] Address: [address] [place] [address] Performed By: #### 2 4321-2 ####[facility] LABORATORYCLIA [id number] [place] [address] [place] Sodium [Moles/Vol] 139 mmol/L Normal 136-144 [facility] Comment on above: Order Comment: Doroteo zavala Type: BLOOD SPECIMENOrdering Facility: [facility] Address: [address] [place] [address] Performed By: #### 2 4321-2 ####[facility] LABORATORYCLIA [id number] [place] [address] [place] Urea nitrogen [Mass/Vol] 11 mg/dL Normal 9-24 [facility] Comment on above: Order Comment: Doroteo zavala Type: BLOOD SPECIMENOrdering Facility: [facility] Address: [address] [place] [address] Performed By: #### 2 4321-2 ####[facility] LABORATORYCLIA [id number] [place] [address] [place] Creatinine and Glomerular filtration rate.predicted panel (S/P/Bld) 122 mL/min/1.73m??? Normal >=60 [facility] Comment on above: Order Comment: Doroteo zavala Type: BLOOD SPECIMENOrdering Facility: [facility] Address: [address] [place] [address] Result Comment: Lola mated Glomerular Filtration Rate (eGFR) is calculated using the 2020 CKD-EPI creatinine equation. This equation utilizes serum creatinine, sex, and age as parameters. The creatinine assay has traceable calibration to isotope dilution-mass spectrometry. Refer to KDIGO guidelines for clinical interpretation. In patients with unstable renal function, e.g. those with acute kidney injury, the eGFR may not accurately reflect actual GFR. Performed By: #### 2 4321-2 ####[facility] LABORATORYCLIA [id number] [place] [address] [place] CBC W Auto Differential pane l (Bld)on 05-05-2023 Basophils (Bld) [#/Vol] 0.07 10*3/uL Normal <0.11 [facility] Comment on above: Order Comment: Doroteo zavala Type: BLOOD SPECIMEN [facility] Address: [address] [place] [address] Performed By: #### T SCR #### [facility] CLIA [id number] [address] [place] [address] [place] Basophils/100 WBC (Bld) 0.9 % Normal [facility] Comment on above: Order Comment: Doroteo zavala Type: BLOOD SPECIMEN [facility] Address: [address] [place] [address] Performed By: #### T SCR #### [facility] CLIA [id number] [address] [place] [address] [place] Differential cell count method Nom (Bld) Auto Normal [facility] Comment on above: Order Comment: Doroteo zavala Type: BLOOD SPECIMEN [facility] Address: [address] [place] [address] Performed By: #### T SCR #### [facility] CLIA [id number] [address] [place] [address] [place] Eosinophils (Bld) [#/Vol] 0.66 10*3/uL High <0.46 [facility] Comment on above: Order Comment: Speci men Type: BLOOD SPECIMEN [facility] Address: [address] [place] [address] Performed By: #### T SCR #### [facility] CLIA [id number] [address] [place] [address] [place] Eosinophils/100 WBC (Bld) 8.3 % Normal [facility] Comment on above: Order Comment: Speci men Type: BLOOD SPECIMEN [facility] Address: [address] [place] [address] Performed By: #### T SCR #### [facility] CLIA [id number] [address] [place] [address] [place] Erythrocyte distribution width (RBC) [Ratio] 19.7 % High 11.5-15.0 [facility] Comment on above: Order Comment: Speci men Type: BLOOD SPECIMEN [facility]: [facility] Address: [address] [place] [address] Performed By: #### T SCR #### [facility] CLIA [id number] [address] [place] [address] [place] Hematocrit (Bld) [Volume fraction] 29.7 % Low 39.0-51.0 [facility] Comment on above: Order Comment: Speci men Type: BLOOD SPECIMEN [facility] Address: [address] [place] [address] Performed By: #### T SCR #### [facility] CLIA [id number] [address] [place] [address] [place] Hemoglobin (Bld) [Mass/Vol] 8.3 g/dL Low 13.0-17.0 [facility] Comment on above: Order Comment: Speci men Type: BLOOD SPECIMEN [facility]: [facility] Address: [address] [place] [address] Performed By: #### T SCR #### [facility] CLIA [id number] [address] [place] [address] [place] Immature granulocytes (Bld) [#/Vol] 0.07 10*3/uL Normal <0.10 [facility] Comment on above: Order Comment: Speci men Type: BLOOD SPECIMEN [facility]ing [facility]: [facility] Address: [address] [place] [address] Performed By: #### T SCR #### [facility] CLIA [id number] [address] [place] [address] [place] Immature granulocytes/100 WBC (Bld) 0.9 % Normal [facility] Comment on above: Order Comment: Speci men Type: BLOOD SPECIMEN [facility]ing Facility: [facility] Address: [address] [place] [address] Performed By: #### T SCR #### [facility] CLIA [id number] [address] [place] [address] [place] Lymphocytes (Bld) [#/Vol] 2.50 10*3/uL Normal 1.00-4.00 [facility] Comment on above: Order Comment: Speci men Type: BLOOD SPECIMEN [facility]ing Facility: [facility] Address: [address] [place] [address] Performed By: #### T SCR #### [facility] CLIA [id number] [address] [place] [address] [place] Lymphocytes/100 WBC (Bld) 31.6 % Normal [facility] Comment on above: Order Comment: Speci men Type: BLOOD SPECIMEN Ordering Facility: [facility] Address: [address] [place] [address] Performed By: #### T SCR #### [facility] CLIA [id number] [address] [place] [address] [place] MCH (RBC) [Entitic mass] 22.3 pg Low 26.0-34.0 [facility] Comment on above: Order Comment: Speci men Type: BLOOD SPECIMEN [facility]ing Facility: [facility] Address: [address] [place] [address] Performed By: #### T SCR #### [facility] CLIA [id number] [address] [place] [address] [place] MCHC (RBC) [Mass/Vol] 27.9 g/dL Low 30.5-36.0 [facility] Comment on above: Order Comment: Speci men Type: BLOOD SPECIMEN Ordering Facility: [facility] Address: [address] [place] [address] Performed By: #### T SCR #### [facility] CLIA [id number] [address] [place] [address] [place] MCV (RBC) [Entitic vol] 79.6 fL Low 80.0-100.0 [facility] Comment on above: Order Comment: Speci men Type: BLOOD SPECIMEN Ordering Facility: [facility] Address: [address] [place] [address] Performed By: #### T SCR #### [facility] CLIA [id number] [address] [place] [address] [place] Monocytes (Bld) [#/Vol] 0.79 10*3/uL Normal <0.87 [facility] Comment on above: Order Comment: Speci men Type: BLOOD SPECIMEN Ordering Facility: [facility] Address: [address] [place] [address] Performed By: #### T SCR #### [facility] CLIA [id number] [address] [place] Monocytes/100 WBC (Bld) 10.0 % Normal [facility] Comment on above: Order Comment: Speci men Type: BLOOD SPECIMEN Ordering Facility: [facility] Address: [address] [place] [address] Performed By: #### T SCR #### [facility] CLIA [id number] [address] [place] [address] [place] Neutrophils (Bld) [#/Vol] 3.83 10*3/uL Normal 1.45-7.50 [facility] Comment on above: Order Comment: Speci men Type: BLOOD SPECIMEN Ordering Facility: [facility] Address: [address] [place] [address] Performed By: #### T SCR #### [facility] CLIA [id number] [address] [place] [address] [place] Neutrophils/100 WBC (Bld) 48.3 % Normal [facility] Comment on above: Order Comment: Speci men Type: BLOOD SPECIMEN Ordering Facility: [facility] Address: [address] [place] [address] Performed By: #### T SCR #### [facility] CLIA [id number] [address] [place] [address] [place] Nucleated RBC (Bld) [#/Vol] <0.01 k/uL [facility] Nucleated RBC/100 WBC (Bld) [Ratio] 0.0 /100 WBC Normal [facility] Comment on above: Order Comment: Speci men Type: BLOOD SPECIMEN Ordering Facility: [facility] Address: [address] [place] [address] Performed By: #### T SCR #### [facility] CLIA [id number] [address] [place] [address] [place] Platelet mean volume (Bld) [Entitic vol] 9.3 fL Normal 9.0-12.7 [facility] Comment on above: Order Comment: Speci men Type: BLOOD SPECIMEN Ordering Facility: [facility] Address: [address] [place] [address] Performed By: #### T SCR #### [facility] CLIA [id number] [address] [place] [address] [place] Platelets (Bld) [#/Vol] 351 10*3/uL Normal 150-400 [facility] Comment on above: Order Comment: Speci men Type: BLOOD SPECIMEN Ordering Facility: [facility] Address: [address] [place] [address] Performed By: #### T SCR #### [facility] CLIA [id number] [address] [place] [address] [place] RBC (Bld) [#/Vol] 3.73 10*6/uL Low 4.20-6.00 [facility] Comment on above: Order Comment: Speci men Type: BLOOD SPECIMEN Ordering Facility: [facility] Address: [address] [place] [address] Performed By: #### T SCR #### [facility] CLIA [id number] [address] [place] [address] [place] WBC (Bld) [#/Vol] 7.92 10*3/uL Normal 3.70-11.00 [facility] Comment on above: Order Comment: Speci men Type: BLOOD SPECIMEN Ordering Facility: [facility] Address: [address] [place] [address] Performed By: #### T SCR #### [facility] CLIA [id number] [address] [place] [address] [place] Nucleated RBC (Bld) [#/Vol] 10*3/uL Normal <0.01 [facility] Comment on above: Order Comment: Speci men Type: BLOOD SPECIMEN Ordering Facility: [facility] Address: [address] [place] [address] Performed By: #### T SCR #### [facility] CLIA [id number] [address] [place] [address] [place] C-REACTIVE PROTEIN (CRP)on 1 07-03-2022 CRP [Mass/Vol] 4.1 mg/dL High <0.9 mg/dL [facility] CBC W Auto Differential pane l (Bld)on 05-02-2023 Basophils (Bld) [#/Vol] 0.07 10*3/uL <0.11 k/uL [facility] Basophils/100 WBC (Bld) 0.8 % [facility] Differential cell count method Nom (Bld) Auto [facility] Eosinophils (Bld) [#/Vol] 0.68 10*3/uL High <0.46 k/uL [facility] Eosinophils/100 WBC (Bld) 7.5 % [facility] Erythrocyte distribution width (RBC) [Ratio] 19.5 % High 11.5 - 15.0 % [facility] Hematocrit (Bld) [Volume fraction] 30.3 % Low 39.0 - 51.0 % [facility] Hemoglobin (Bld) [Mass/Vol] 8.5 g/dL Low 13.0 - 17.0 g/dL [facility] Immature granulocytes (Bld) [#/Vol] 0.12 10*3/uL High <0.10 k/uL [facility] Immature granulocytes/100 WBC (Bld) 1.3 % [facility] Lymphocytes (Bld) [#/Vol] 2.76 10*3/uL 1.00 - 4.00 k/uL [facility] Lymphocytes/100 WBC (Bld) 30.6 % [facility] MCH (RBC) [Entitic mass] 22.5 pg Low 26.0 - 34.0 pg [facility] MCHC (RBC) [Mass/Vol] 28.1 g/dL Low 30.5 - 36.0 g/dL [facility] MCV (RBC) [Entitic vol] 80.4 fL 80.0 - 100.0 fL [facility] Monocytes (Bld) [#/Vol] 0.90 10*3/uL High <0.87 k/uL [facility] Monocytes/100 WBC (Bld) 10.0 % [facility] Neutrophils (Bld) [#/Vol] 4.50 10*3/uL 1.45 - 7.50 k/uL [facility] Neutrophils/100 WBC (Bld) 49.8 % [facility] Nucleated RBC (Bld) [#/Vol] <0.01 k/uL [facility] Nucleated RBC/100 WBC (Bld) [Ratio] 0.0 /100 WBC [facility] Platelet mean volume (Bld) [Entitic vol] 9.4 fL 9.0 - 12.7 fL [facility] Platelets (Bld) [#/Vol] 381 10*3/uL 150 - 400 k/uL [facility] RBC (Bld) [#/Vol] 3.77 10*6/uL Low 4.20 - 6.0 0 m/uL [facility] WBC (Bld) [#/Vol] 9.03 10*3/uL 3.70 - 11.00 k/uL [facility] Basophils (Bld) [#/Vol] 0.07 10*3/uL Normal <0.11 [facility] Comment on above: Order Comment: Speci men Type: BLOOD SPECIMEN Ordering Facility: [facility] Address: [address] [place] [address] Performed By: #### T SCR #### [facility] CLIA [id number] [address] [place] [address] [place] Basophils/100 WBC (Bld) 0.8 % Normal [facility] Comment on above: Order Comment: Speci men Type: BLOOD SPECIMEN Ordering Facility: [facility] Address: [address] [place] [address] Performed By: #### T SCR #### [facility] CLIA [id number] [address] [place] [address] [place] Differential cell count method Nom (Bld) Auto Normal [facility] Comment on above: Order Comment: Speci men Type: BLOOD SPECIMEN Ordering Facility: [facility] Address: [address] [place] [address] Performed By: #### T SCR #### [facility] CLIA [id number] [address] [place] [address] [place] Eosinophils (Bld) [#/Vol] 0.68 10*3/uL High <0.46 [facility] Comment on above: Order Comment: Speci men Type: BLOOD SPECIMEN Ordering Facility: [facility] Address: [address] [place] [address] Performed By: #### T SCR #### [facility] CLIA [id number] [address] [place] [address] [place] Eosinophils/100 WBC (Bld) 7.5 % Normal [facility] Comment on above: Order Comment: Speci men Type: BLOOD SPECIMEN Ordering Facility: [facility] Address: [address] [place] [address] Performed By: #### T SCR #### [facility] CLIA [id number] [address] [place] [address] [place] Erythrocyte distribution width (RBC) [Ratio] 19.5 % High 11.5-15.0 [facility] Comment on above: Order Comment: Speci men Type: BLOOD SPECIMEN Ordering Facility: [facility] Address: [address] [place] [address] Performed By: #### T SCR #### [facility] CLIA [id number] [address] [place] [address] [place] Hematocrit (Bld) [Volume fraction] 30.3 % Low 39.0-51.0 [facility] Comment on above: Order Comment: Speci men Type: BLOOD SPECIMEN Ordering Facility: [facility] Address: [address] [place] [address] Performed By: #### T SCR #### [facility] CLIA [id number] [address] [place] [address] [place] Hemoglobin (Bld) [Mass/Vol] 8.5 g/dL Low 13.0-17.0 [facility] Comment on above: Order Comment: Speci men Type: BLOOD SPECIMEN Ordering Facility: [facility] Address: [address] [place] [address] Performed By: #### T SCR #### [facility] CLIA [id number] [address] [place] [address] [place] Immature granulocytes (Bld) [#/Vol] 0.12 10*3/uL High <0.10 [facility] Comment on above: Order Comment: Speci men Type: BLOOD SPECIMEN Ordering Facility: [facility] Address: [address] [place] [address] Performed By: #### T SCR #### [facility] CLIA [id number] [address] [place] [address] [place] Immature granulocytes/100 WBC (Bld) 1.3 % Normal [facility] Comment on above: Order Comment: Speci men Type: BLOOD SPECIMEN Ordering Facility: [facility] Address: [address] [place] [address] Performed By: #### T SCR #### [facility] CLIA [id number] [address] [place] [address] [place] Lymphocytes (Bld) [#/Vol] 2.76 10*3/uL Normal 1.00-4.00 [facility] Comment on above: Order Comment: Speci men Type: BLOOD SPECIMEN Ordering Facility: [facility] Address: [address] [place] [address] Performed By: #### T SCR #### [facility] CLIA [id number] [address] [place] [address] [place] Lymphocytes/100 WBC (Bld) 30.6 % Normal [facility] Comment on above: Order Comment: Speci men Type: BLOOD SPECIMEN Ordering Facility: [facility] Address: [address] [place] [address] Performed By: #### T SCR #### [facility] CLIA [id number] [address] [place] [address] [place] MCH (RBC) [Entitic mass] 22.5 pg Low 26.0-34.0 [facility] Comment on above: Order Comment: Speci men Type: BLOOD SPECIMEN Ordering Facility: [facility] Address: [address] [place] [address] Performed By: #### T SCR #### [facility] CLIA [id number] [address] [place] [address] [place] MCHC (RBC) [Mass/Vol] 28.1 g/dL Low 30.5-36.0 [facility] Comment on above: Order Comment: Speci men Type: BLOOD SPECIMEN Ordering Facility: [facility] Address: [address] [place] [address] Performed By: #### T SCR #### [facility] CLIA [id number] [address] [place] [address] [place] MCV (RBC) [Entitic vol] 80.4 fL Normal 80.0-100.0 [facility] Comment on above: Order Comment: Speci men Type: BLOOD SPECIMEN Ordering Facility: [facility] Address: [address] [place] [address] Performed By: #### T SCR #### [facility] CLIA [id number] [address] [place] [address] [place] Monocytes (Bld) [#/Vol] 0.90 10*3/uL High <0.87 [facility] Comment on above: Order Comment: Speci men Type: BLOOD SPECIMEN Ordering Facility: [facility] Address: [address] [place] [address] Performed By: #### T SCR #### [facility] CLIA [id number] [address] [place] [address] [place] Monocytes/100 WBC (Bld) 10.0 % Normal [facility] Comment on above: Order Comment: Speci men Type: BLOOD SPECIMEN Ordering Facility: [facility] Address: [address] [place] [address] Performed By: #### T SCR #### [facility] CLIA [id number] [address] [place] [address] [place] Neutrophils (Bld) [#/Vol] 4.50 10*3/uL Normal 1.45-7.50 [facility] Comment on above: Order Comment: Speci men Type: BLOOD SPECIMEN Ordering Facility: [facility] Address: [address] [place] [address] Performed By: #### T SCR #### [facility] CLIA [id number] [address] [place] [id number] [place] Neutrophils/100 WBC (Bld) 49.8 % Normal [facility] Comment on above: Order Comment: Speci men Type: BLOOD SPECIMEN Ordering Facility: [facility] Address: [address] [place] [address] Performed By: #### T SCR #### [facility] CLIA [id number] [address] [place] [address] [place] Nucleated RBC (Bld) [#/Vol] 10*3/uL Normal <0.01 [facility] Comment on above: Order Comment: Speci men Type: BLOOD SPECIMEN Ordering Facility: [facility] Address: [address] [place] [address] Performed By: #### T SCR #### [facility] CLIA [id number] [address] [place] [address] [place] Nucleated RBC/100 WBC (Bld) [Ratio] 0.0 /100 WBC Normal [facility] Comment on above: Order Comment: Speci men Type: BLOOD SPECIMEN Ordering Facility: [facility] Address: [address] [place] [address] Performed By: #### T SCR #### [facility] CLIA [id number] [address] [place] [address] [place] Platelet mean volume (Bld) [Entitic vol] 9.4 fL Normal 9.0-12.7 [facility] Comment on above: Order Comment: Speci men Type: BLOOD SPECIMEN Ordering Facility: [facility] Address: [address] [place] [address] Performed By: #### T SCR #### [facility] CLIA [id number] [address] [place] [address] [place] Platelets (Bld) [#/Vol] 381 10*3/uL Normal 150-400 [facility] Comment on above: Order Comment: Speci men Type: BLOOD SPECIMEN Ordering Facility: [facility] Address: [address] [place] [address] Performed By: #### T SCR #### [facility] CLIA [id number] [address] [place] [address] [place] RBC (Bld) [#/Vol] 3.77 10*6/uL Low 4.20-6.00 [facility] Comment on above: Order Comment: Speci men Type: BLOOD SPECIMEN Ordering Facility: [facility] Address: [address] [place] [address] Performed By: #### T SCR #### [facility] CLIA [id number] [address] [place] [address] [place] WBC (Bld) [#/Vol] 9.03 10*3/uL Normal 3.70-11.00 [facility] Comment on above: Order Comment: Speci men Type: BLOOD SPECIMEN Ordering Facility: [facility] Address: [address] [place] [address] Performed By: #### T SCR #### [facility] CLIA [id number] [address] [place] [address] [place] CK CREATINE KINASEon 023 CK [Catalytic activity/Vol] 18 U/L Low 51 - 298 U/L [facility] CK SerPl-cCncon 05-02-2023 CK [Catalytic activity/Vol] 18 U/L Low 51-298 [facility] Comment on above: Order Comment: Speci men Type: BLOOD SPECIMENOrdering Facility: [facility] Address: [address] [place] [address] Performed By: #### 2 157-6 ####[facility] LABORATORYCLIA [id number] [place] [address] [place] CRP SerPl-mCncon 05-02-2023 CRP [Mass/Vol] 4.1 mg/dL High <0.9 [facility] Comment on above: Order Comment: Speci men Type: BLOOD SPECIMENOrdering Facility: [facility] Address: [id number] [place] [address] Performed By: #### 1 988-5 ####[facility] LABORATORYCLIA [id number] [address] OF [facility] Comprehensive metabolic 2000 panelon 05-02-2023 Albumin [Mass/Vol] 3.6 g/dL Low 3.9 - 4.9 g/dL [facility] ALP [Catalytic activity/Vol] 88 U/L 38 - 113 U/L [facility] ALT [Catalytic activity/Vol] 14 U/L 10 - 54 U/L [facility] Anion gap [Moles/Vol] 12 mmol/L 9 - 18 mmol/L [facility] AST [Catalytic activity/Vol] 28 U/L 14 - 40 U/L [facility] Bilirubin [Mass/Vol] 0.2 mg/dL 0.2 - 1 .3 mg/dL [facility] Calcium [Mass/Vol] 9.6 mg/dL 8.5 - 10. 2 mg/dL [facility] Chloride [Moles/Vol] 97 mmol/L 97 - 10 5 mmol/L [facility] CO2 [Moles/Vol] 28 mmol/L 22 - 30 mmol/L [facility] Creatinine [Mass/Vol] 0.48 mg/dL Low 0.73 - 1.22 mg/dL [facility] Estimated Glomerular Filtration Rate 122 mL/min/1.73m >=60 mL/min/1.73 m [facility] Glucose [Mass/Vol] 161 mg/dL High 74 - 99 mg/dL [facility] Potassium [Moles/Vol] 5.0 mmol/L 3.7 - 5.1 mmol/L [facility] Protein [Mass/Vol] 6.8 g/dL 6.3 - 8.0 g/dL [facility] Sodium [Moles/Vol] 137 mmol/L 136 - 144 mmol/L [facility] Urea nitrogen [Mass/Vol] 11 mg/dL 9 - 24 mg/dL [facility] Albumin [Mass/Vol] 3.6 g/dL Low 3.9-4.9 [facility] Comment on above: Order Comment: Speci men Type: BLOOD SPECIMENOrdering Facility: [facility] Address: [address] [place] [address] Performed By: #### 2 4323-8 ####[facility] LABORATORYCLIA [id number] [place] [address] [place] ALP [Catalytic activity/Vol] 88 U/L Normal 38-113 [facility] Comment on above: Order Comment: Speci men Type: BLOOD SPECIMENOrdering Facility: [facility] Address: [address] [place] [address] Performed By: #### 2 4323-8 ####[facility] LABORATORYCLIA [id number] [place] [address] [place] ALT [Catalytic activity/Vol] 14 U/L Normal 10-54 [facility] Comment on above: Order Comment: Speci men Type: BLOOD SPECIMENOrdering Facility: [facility] Address: [address] [place] [address] Performed By: #### 2 4323-8 ####[facility] LABORATORYCLIA [id number] [place] [address] [place] Anion gap [Moles/Vol] 12 mmol/L Normal 9-18 [facility] Comment on above: Order Comment: Speci men Type: BLOOD SPECIMENOrdering Facility: [facility] Address: [address] [place] [address] Performed By: #### 2 4323-8 ####[facility] LABORATORYCLIA [id number] [place] [address] [place] AST [Catalytic activity/Vol] 28 U/L Normal 14-40 [facility] Comment on above: Order Comment: Speci men Type: BLOOD SPECIMENOrdering Facility: [facility] Address: [address] [place] [address] Performed By: #### 2 4323-8 ####[facility] LABORATORYCLIA [id number] [place] [address] [place] Bilirubin [Mass/Vol] 0.2 mg/dL Normal 0.2-1.3 [facility] Comment on above: Order Comment: Speci men Type: BLOOD SPECIMENOrdering Facility: [facility] Address: [address] [place] [address] Performed By: #### 2 4323-8 ####[facility] LABORATORYCLIA [id number] [place] [address] [place] Calcium [Mass/Vol] 9.6 mg/dL Normal 8.5-10.2 [facility] Comment on above: Order Comment: Speci men Type: BLOOD SPECIMENOrdering Facility: [facility] Address: [address] [place] [address] Performed By: #### 2 4323-8 ####[facility] LABORATORYCLIA [id number] [place] [address] [place] Chloride [Moles/Vol] 97 mmol/L Normal 97-105 [facility] Comment on above: Order Comment: Speci men Type: BLOOD SPECIMENOrdering Facility: [facility] Address: [address] [place] [address] Performed By: #### 2 4323-8 ####[facility] LABORATORYCLIA [id number] [place] [address] [place] CO2 [Moles/Vol] 28 mmol/L Normal 22-30 [facility] Comment on above: Order Comment: Speci men Type: BLOOD SPECIMENOrdering Facility: [facility] Address: [address] [place] [address] Performed By: #### 2 4323-8 ####[facility] LABORATORYCLIA [id number] [place] [address] [place] Creatinine [Mass/Vol] 0.48 mg/dL Low 0.73-1.22 [facility] Comment on above: Order Comment: Speci men Type: BLOOD SPECIMENOrdering Facility: [facility] Address: [address] [place] [address] Performed By: #### 2 4323-8 ####[facility] LABORATORYCLIA [id number] [place] [address] [place] Creatinine and Glomerular filtration rate.predicted panel (S/P/Bld) 122 mL/min/1.73m??? Normal >=60 [facility] Comment on above: Order Comment: Doroteo zavala Type: BLOOD SPECIMENOrdering Facility: [facility] Address: [address] [place] [address] Result Comment: Lola mated Glomerular Filtration Rate (eGFR) is calculated using the 2020 CKD-EPI creatinine equation. This equation utilizes serum creatinine, sex, and age as parameters. The creatinine assay has traceable calibration to isotope dilution-mass spectrometry. Refer to KDIGO guidelines for clinical interpretation. In patients with unstable renal function, e.g. those with acute kidney injury, the eGFR may not accurately reflect actual GFR. Performed By: #### 2 4323-8 ####ANJ[facility] LABORATORYCLIA [id number] [place] [address] [place] Glucose [Mass/Vol] 161 mg/dL High 74-99 [facility] Comment on above: Order Comment: Doroteo zavala Type: BLOOD SPECIMENOrdering Facility: [facility] Address: [address] [place] [address] Result Comment: The [place] [employer] (ADA) provides guidance for cutoff values for fasting glucose and random glucose. The ADA defines fasting as no caloric intake for at least 8 hours. Fasting plasma glucose results between 100 to 125 mg/dL indicate increased risk for diabetes (prediabetes). Fasting plasma glucose results greater than or equal to 126 mg/dL meet the criteria for diagnosis of diabetes. In the absence of unequivocal hyperglycemia, results should be confirmed by repeat testing. In a patient with classic symptoms of hyperglycemia or hyperglycemic crisis, random plasma glucose results greater than or equal to 200 mg/dL meet the criteria for diagnosis of diabetes. Reference: Standards of Medical Care in Diabetes 2016, [place] [employer]. Diabetes Care. 2016.39(Suppl 1). Performed By: #### 2 4323-8 ####[facility] LABORATORYCLIA [id number] [place] [id number] [place] Potassium [Moles/Vol] 5.0 mmol/L Normal 3.7-5.1 [facility] Comment on above: Order Comment: Speci men Type: BLOOD SPECIMENOrdering Facility: [facility] Address: [address] [place] [address] Performed By: #### 2 4323-8 ####[facility] LABORATORYCLIA [id number] [place] [address] [place] Protein [Mass/Vol] 6.8 g/dL Normal 6.3-8.0 [facility] Comment on above: Order Comment: Speci men Type: BLOOD SPECIMENOrdering Facility: [facility] Address: [address] [place] [address] Performed By: #### 2 4323-8 ####[facility] LABORATORYCLIA [id number] [place] [address] [place] Sodium [Moles/Vol] 137 mmol/L Normal 136-144 [facility] Comment on above: Order Comment: Speci men Type: BLOOD SPECIMENOrdering Facility: [facility] Address: [address] [place] [address] Performed By: #### 2 4323-8 ####[facility] LABORATORYCLIA [id number] [place] [address] [place] Urea nitrogen [Mass/Vol] 11 mg/dL Normal 9-24 [facility] Comment on above: Order Comment: Speci men Type: BLOOD SPECIMENOrdering Facility: [facility] Address: [address] [place] [address] Performed By: #### 2 4323-8 ####[facility] LABORATORYCLIA [id number] [place] [address] [place] MAGNESIUM BLDon 05-02-2023 Magnesium [Mass/Vol] 1.8 mg/dL 1.7 - 2 .3 mg/dL [facility] Magnesium SerPl-mCncon 05-02 Magnesium [Mass/Vol] 1.8 mg/dL Normal 1.7-2.3 [facility] Comment on above: Order Comment: Speci men Type: BLOOD SPECIMENOrdering Facility: [facility] Address: [address] [place] [address] Performed By: #### 1 9123-9 ####[facility] LABORATORYCLIA [id number] [place] [address] [place] PHOSPHORUS INORGANICon 05-02 Phosphate [Mass/Vol] 4.6 mg/dL 2.7 - 4 .8 mg/dL [facility] Phosphate SerPl-mCncon 05-02 Phosphate [Mass/Vol] 4.6 mg/dL Normal 2.7-4.8 [facility] Comment on above: Order Comment: Speci men Type: BLOOD SPECIMENOrdering Facility: [facility] Address: [address] [place] [address] Performed By: #### 2 777-1 ####[facility] LABORATORYCLIA [id number] [place] [address] [place] BUN BLOODon 04-26-2023 Urea nitrogen [Mass/Vol] 9 mg/dL 9 - 24 mg/dL [facility] BUN SerPl-mCncon 04-26-2023 Urea nitrogen [Mass/Vol] 9 mg/dL Normal 9-24 [facility] Comment on above: Order Comment: Speci men Type: BLOOD SPECIMEN Ordering Facility: [facility] Address: [address] [place] [address] Performed By: #### 1 988-5 #### [facility] CLIA [id number] [address] [place] [address] [place] C-REACTIVE PROTEIN (CRP)on 1 06-27-2022 CRP [Mass/Vol] 10.3 mg/dL High <0.9 mg/dL [facility] CBC W Auto Differential pane l (Bld)on 04-26-2023 Basophils (Bld) [#/Vol] 0.09 10*3/uL <0.11 k/uL [facility] Basophils/100 WBC (Bld) 0.9 % [facility] Differential cell count method Nom (Bld) Auto [facility] Eosinophils (Bld) [#/Vol] 0.75 10*3/uL High <0.46 k/uL [facility] Eosinophils/100 WBC (Bld) 7.5 % [facility] Erythrocyte distribution width (RBC) [Ratio] 19.9 % High 11.5 - 15.0 % [facility] Hematocrit (Bld) [Volume fraction] 28.3 % Low 39.0 - 51.0 % [facility] Hemoglobin (Bld) [Mass/Vol] 8.2 g/dL Low 13.0 - 17.0 g/dL [facility] Immature granulocytes (Bld) [#/Vol] 0.14 10*3/uL High <0.10 k/uL [facility] Immature granulocytes/100 WBC (Bld) 1.4 % [facility] Lymphocytes (Bld) [#/Vol] 3.01 10*3/uL 1.00 - 4.00 k/uL [facility] Lymphocytes/100 WBC (Bld) 30.3 % [facility] MCH (RBC) [Entitic mass] 22.9 pg Low 26.0 - 34.0 pg [facility] MCHC (RBC) [Mass/Vol] 29.0 g/dL Low 30.5 - 36.0 g/dL [facility] MCV (RBC) [Entitic vol] 79.1 fL Low 80.0 - 100.0 fL [facility] Monocytes (Bld) [#/Vol] 0.96 10*3/uL High <0.87 k/uL [facility] Monocytes/100 WBC (Bld) 9.7 % [facility] Neutrophils (Bld) [#/Vol] 4.99 10*3/uL 1.45 - 7.50 k/uL [facility] Neutrophils/100 WBC (Bld) 50.2 % [facility] Nucleated RBC (Bld) [#/Vol] <0.01 k/uL [facility] Nucleated RBC/100 WBC (Bld) [Ratio] 0.0 /100 WBC [facility] Platelet mean volume (Bld) [Entitic vol] 9.7 fL 9.0 - 12.7 fL [facility] Platelets (Bld) [#/Vol] 395 10*3/uL 150 - 400 k/uL [facility] RBC (Bld) [#/Vol] 3.58 10*6/uL Low 4.20 - 6.0 0 m/uL [facility] WBC (Bld) [#/Vol] 9.94 10*3/uL 3.70 - 11.00 k/uL [facility] Basophils (Bld) [#/Vol] 0.09 10*3/uL Normal <0.11 [facility] Comment on above: Order Comment: Speci men Type: BLOOD SPECIMEN [facility]ing Facility: [facility] Address: [address] [place] [address] Performed By: #### T SCR #### [facility] CLIA [id number] [address] [place] [address] [place] Basophils/100 WBC (Bld) 0.9 % Normal [facility] Comment on above: Order Comment: Speci men Type: BLOOD SPECIMEN Ordering Facility: [facility] Address: [address] [place] [address] Performed By: #### T SCR #### [facility] CLIA [id number] [address] [place] [address] [place] Differential cell count method Nom (Bld) Auto Normal [facility] Comment on above: Order Comment: Speci men Type: BLOOD SPECIMEN Ordering Facility: [facility] Address: [address] [place] [address] Performed By: #### T SCR #### [facility] CLIA [id number] [address] [place] [address] [place] Eosinophils (Bld) [#/Vol] 0.75 10*3/uL High <0.46 [facility] Comment on above: Order Comment: Speci men Type: BLOOD SPECIMEN Ordering Facility: [facility] Address: [address] [place] [address] Performed By: #### T SCR #### [facility] CLIA [id number] [address] [place] [address] [place] Eosinophils/100 WBC (Bld) 7.5 % Normal [facility] Comment on above: Order Comment: Speci men Type: BLOOD SPECIMEN Ordering Facility: [facility] Address: [address] [place] [address] Performed By: #### T SCR #### [facility] CLIA [id number] [address] [place] [address] [place] Erythrocyte distribution width (RBC) [Ratio] 19.9 % High 11.5-15.0 [facility] Comment on above: Order Comment: Speci men Type: BLOOD SPECIMEN Ordering Facility: [facility] Address: [address] [place] [address] Performed By: #### T SCR #### [facility] CLIA [id number] [address] [place] [address] [place] Hematocrit (Bld) [Volume fraction] 28.3 % Low 39.0-51.0 [facility] Comment on above: Order Comment: Speci men Type: BLOOD SPECIMEN Ordering Facility: [facility] Address: [address] [place] [address] Performed By: #### T SCR #### [facility] CLIA [id number] [address] [place] [address] [place] Hemoglobin (Bld) [Mass/Vol] 8.2 g/dL Low 13.0-17.0 [facility] Comment on above: Order Comment: Speci men Type: BLOOD SPECIMEN Ordering Facility: [facility] Address: [address] [place] [address] Performed By: #### T SCR #### [facility] CLIA [id number] [address] [place] [address] [place] Immature granulocytes (Bld) [#/Vol] 0.14 10*3/uL High <0.10 [facility] Comment on above: Order Comment: Speci men Type: BLOOD SPECIMEN Ordering Facility: [facility] Address: [address] [place] [address] Performed By: #### T SCR #### [facility] CLIA [id number] [address] [place] [address] [place] Immature granulocytes/100 WBC (Bld) 1.4 % Normal [facility] Comment on above: Order Comment: Speci men Type: BLOOD SPECIMEN Ordering Facility: [facility] Address: [address] [place] [address] Performed By: #### T SCR #### [facility] CLIA [id number] [address] [place] [address] [place] Lymphocytes (Bld) [#/Vol] 3.01 10*3/uL Normal 1.00-4.00 [facility] Comment on above: Order Comment: Speci men Type: BLOOD SPECIMEN Ordering Facility: [facility] Address: [address] [place] [address] Performed By: #### T SCR #### [facility] CLIA [id number] [address] [place] [address] [place] Lymphocytes/100 WBC (Bld) 30.3 % Normal [facility] Comment on above: Order Comment: Speci men Type: BLOOD SPECIMEN Ordering Facility: [facility] Address: [address] [place] [address] Performed By: #### T SCR #### [facility] CLIA [id number] [address] [place] [address] [place] MCH (RBC) [Entitic mass] 22.9 pg Low 26.0-34.0 [facility] Comment on above: Order Comment: Speci men Type: BLOOD SPECIMEN Ordering Facility: [facility] Address: [address] [place] [address] Performed By: #### T SCR #### [facility] CLIA [id number] [address] [place] [address] [place] MCHC (RBC) [Mass/Vol] 29.0 g/dL Low 30.5-36.0 [facility] Comment on above: Order Comment: Speci men Type: BLOOD SPECIMEN Ordering Facility: [facility] Address: [address] [place] [address] Performed By: #### T SCR #### [facility] CLIA [id number] [address] [place] [address] [place] MCV (RBC) [Entitic vol] 79.1 fL Low 80.0-100.0 [facility] Comment on above: Order Comment: Speci men Type: BLOOD SPECIMEN Ordering Facility: [facility] Address: [address] [place] [address] Performed By: #### T SCR #### [facility] CLIA [id number] [address] [place] [address] [place] Monocytes (Bld) [#/Vol] 0.96 10*3/uL High <0.87 [facility] Comment on above: Order Comment: Speci men Type: BLOOD SPECIMEN Ordering Facility: [facility] Address: [address] [place] [address] Performed By: #### T SCR #### [facility] CLIA [id number] [address] [place] [address] [place] Monocytes/100 WBC (Bld) 9.7 % Normal [facility] Comment on above: Order Comment: Speci men Type: BLOOD SPECIMEN Ordering Facility: [facility] Address: [address] [place] [address] Performed By: #### T SCR #### [facility] CLIA [id number] [address] [place] [address] [place] Neutrophils (Bld) [#/Vol] 4.99 10*3/uL Normal 1.45-7.50 [facility] Comment on above: Order Comment: Speci men Type: BLOOD SPECIMEN Ordering Facility: [facility] Address: [address] [place] [address] Performed By: #### T SCR #### [facility] CLIA [id number] [address] [place] [address] [place] Neutrophils/100 WBC (Bld) 50.2 % Normal [facility] Comment on above: Order Comment: Speci men Type: BLOOD SPECIMEN Ordering Facility: [facility] Address: [address] [place] [address] Performed By: #### T SCR #### [facility] CLIA [id number] [address] [place] [address] [place] Nucleated RBC (Bld) [#/Vol] 10*3/uL Normal <0.01 [facility] Comment on above: Order Comment: Speci men Type: BLOOD SPECIMEN Ordering Facility: [facility] Address: [address] [place] [address] Performed By: #### T SCR #### [facility] CLIA [id number] [address] [place] [address] [place] Nucleated RBC/100 WBC (Bld) [Ratio] 0.0 /100 WBC Normal [facility] Comment on above: Order Comment: Speci men Type: BLOOD SPECIMEN Ordering Facility: [facility] Address: [address] [place] [address] Performed By: #### T SCR #### [facility] CLIA [id number] [address] [place] [address] [place] Platelet mean volume (Bld) [Entitic vol] 9.7 fL Normal 9.0-12.7 [facility] Comment on above: Order Comment: Speci men Type: BLOOD SPECIMEN Ordering Facility: [facility] Address: [address] [place] [address] Performed By: #### T SCR #### [facility] CLIA [id number] [address] [place] [address] [place] Platelets (Bld) [#/Vol] 395 10*3/uL Normal 150-400 [facility] Comment on above: Order Comment: Speci men Type: BLOOD SPECIMEN Ordering Facility: [facility] Address: [address] [place] [address] Performed By: #### T SCR #### [facility] CLIA [id number] [address] [id number] [address] [place] RBC (Bld) [#/Vol] 3.58 10*6/uL Low 4.20-6.00 [facility] Comment on above: Order Comment: Speci men Type: BLOOD SPECIMEN Ordering Facility: [facility] Address: [address] [place] [address] Performed By: #### T SCR #### [facility] CLIA [id number] [address] [place] [address] [place] WBC (Bld) [#/Vol] 9.94 10*3/uL Normal 3.70-11.00 [facility] Comment on above: Order Comment: Speci men Type: BLOOD SPECIMEN Ordering Facility: [facility] Address: [address] [place] [address] Performed By: #### T SCR #### [facility] CLIA [id number] [address] [place] [address] [place] CK CREATINE KINASEon 023 CK [Catalytic activity/Vol] 19 U/L Low 51 - 298 U/L [facility] CK SerPl-cCncon 04-26-2023 CK [Catalytic activity/Vol] 19 U/L Low 51-298 [facility] Comment on above: Order Comment: Speci men Type: BLOOD SPECIMENOrdering Facility: [facility] Address: [address] [place] [address] Performed By: #### 2 157-6 ####[facility]ORATORYCLIA [id number] [place] [address] [place] CRP SerPl-mCncon 04-26-2023 CRP [Mass/Vol] 10.3 mg/dL High <0.9 [facility] Comment on above: Order Comment: Speci men Type: BLOOD SPECIMENOrdering Facility: [facility] Address: [address] [place] [address] Performed By: #### 1 988-5 ####[facility]ORATORYCLIA [id number] [place] [address] [place] Hepatic function 2000 panelo n 04-26-2023 Albumin [Mass/Vol] 3.5 g/dL Low 3.9 - 4.9 g/dL [facility] ALP [Catalytic activity/Vol] 87 U/L 38 - 113 U/L [facility] ALT [Catalytic activity/Vol] 15 U/L 10 - 54 U/L [facility] AST [Catalytic activity/Vol] 20 U/L 14 - 40 U/L [facility] Bilirubin [Mass/Vol] 0.2 mg/dL 0.2 - 1 .3 mg/dL [facility] Bilirubin.conjugated [Mass/Vol] <0.2 mg/dL [facility] Protein [Mass/Vol] 6.8 g/dL 6.3 - 8.0 g/dL [facility] Albumin [Mass/Vol] 3.5 g/dL Low 3.9-4.9 [facility] Comment on above: Order Comment: Speci men Type: BLOOD SPECIMEN Ordering Facility: [facility] Address: [address] [place] [address] Performed By: #### T SCR #### [facility] CLIA [id number] [address] [place] [address] [place] ALP [Catalytic activity/Vol] 87 U/L Normal 38-113 [facility] Comment on above: Order Comment: Speci men Type: BLOOD SPECIMEN Ordering Facility: [facility] Address: [address] [place] [address] Performed By: #### T SCR #### [facility] CLIA [id number] [address] [place] [address] [place] ALT [Catalytic activity/Vol] 15 U/L Normal 10-54 [facility] Comment on above: Order Comment: Speci men Type: BLOOD SPECIMEN Ordering Facility: [facility] Address: [address] [place] [address] Performed By: #### T SCR #### [facility] CLIA [id number] [address] [place] [id number] [place] AST [Catalytic activity/Vol] 20 U/L Normal 14-40 [facility] Comment on above: Order Comment: Speci men Type: BLOOD SPECIMEN Ordering Facility: [facility] Address: [address] [place] [address] Performed By: #### T SCR #### [facility] CLIA [id number] [address] [place] [address] [place] Bilirubin [Mass/Vol] 0.2 mg/dL Normal 0.2-1.3 [facility] Comment on above: Order Comment: Speci men Type: BLOOD SPECIMEN Ordering Facility: [facility] Address: [address] [place] [address] Performed By: #### T SCR #### [facility] CLIA [id number] [address] [place] [address] [place] Bilirubin.conjugated [Mass/Vol] mg/dL Normal <0.2 [facility] Comment on above: Order Comment: Speci men Type: BLOOD SPECIMEN Ordering Facility: [facility] Address: [address] [place] [address] Performed By: #### T SCR #### [facility] CLIA [id number] [address] [place] [address] [place] Protein [Mass/Vol] 6.8 g/dL Normal 6.3-8.0 [facility] Comment on above: Order Comment: Speci men Type: BLOOD SPECIMEN Ordering Facility: [facility] Address: [address] [place] [address] Performed By: #### T SCR #### [facility] CLIA [id number] [address] [place] [address] [place] Basic metabolic 2000 panelon 04-23-2023 Anion gap [Moles/Vol] 14 mmol/L 9 - 18 mmol/L [facility] Calcium [Mass/Vol] 9.4 mg/dL 8.5 - 10. 2 mg/dL [facility] Chloride [Moles/Vol] 101 mmol/L 97 - 10 5 mmol/L [facility] CO2 [Moles/Vol] 25 mmol/L 22 - 30 mmol/L [facility] Creatinine [Mass/Vol] 0.44 mg/dL Low 0.73 - 1.22 mg/dL [facility] Estimated Glomerular Filtration Rate 125 mL/min/1.73m >=60 mL/min/1.73 m [facility] Glucose [Mass/Vol] 150 mg/dL High 74 - 99 mg/dL [facility] Potassium [Moles/Vol] 4.7 mmol/L 3.7 - 5.1 mmol/L [facility] Sodium [Moles/Vol] 140 mmol/L 136 - 144 mmol/L [facility] Urea nitrogen [Mass/Vol] 8 mg/dL Low 9 - 24 mg/dL [facility] Anion gap [Moles/Vol] 14 mmol/L Normal 9-18 [facility] Comment on above: Order Comment: Speci men Type: BLOOD SPECIMENOrdering Facility: [facility] Address: [address] [place] [address] Performed By: #### 2 4321-2 ####[facility] LABORATORYCLIA [id number] [place] [address] [place] Calcium [Mass/Vol] 9.4 mg/dL Normal 8.5-10.2 [facility] Comment on above: Order Comment: Speci men Type: BLOOD SPECIMENOrdering Facility: [facility] Address: [address] [place] [address] Performed By: #### 2 4321-2 ####[facility] LABORATORYCLIA [id number] [place] [address] [place] Chloride [Moles/Vol] 101 mmol/L Normal 97-105 [facility] Comment on above: Order Comment: Speci men Type: BLOOD SPECIMENOrdering Facility: [facility] Address: [address] [place] [address] Performed By: #### 2 4321-2 ####[facility] LABORATORYCLIA [id number] [place] [address] [place] CO2 [Moles/Vol] 25 mmol/L Normal 22-30 [facility] Comment on above: Order Comment: Speci men Type: BLOOD SPECIMENOrdering Facility: [facility] Address: [address] [place] [address] Performed By: #### 2 4321-2 ####[facility] LABORATORYCLIA [id number] [place] [address] [place] Creatinine [Mass/Vol] 0.44 mg/dL Low 0.73-1.22 [facility] Comment on above: Order Comment: Speci men Type: BLOOD SPECIMENOrdering Facility: [facility] Address: [address] [place] [address] Performed By: #### 2 4321-2 ####[facility] LABORATORYCLIA [id number] [place] [address] [place] Creatinine and Glomerular filtration rate.predicted panel (S/P/Bld) 125 mL/min/1.73m??? Normal >=60 [facility] Comment on above: Order Comment: Speci men Type: BLOOD SPECIMENOrdering Facility: [facility] Address: [address] [place] [address] Result Comment: Lola mated Glomerular Filtration Rate (eGFR) is calculated using the 2020 CKD-EPI creatinine equation. This equation utilizes serum creatinine, sex, and age as parameters. The creatinine assay has traceable calibration to isotope dilution-mass spectrometry. Refer to KDIGO guidelines for clinical interpretation. In patients with unstable renal function, e.g. those with acute kidney injury, the eGFR may not accurately reflect actual GFR. Performed By: #### 2 4321-2 ####[facility] LABORATORYCLIA [id number] [place] [address] [place] Glucose [Mass/Vol] 150 mg/dL High 74-99 [facility] Comment on above: Order Comment: Speci men Type: BLOOD SPECIMENOrdering Facility: [facility] Address: [address] [place] [address] Result Comment: The [place] [employer] (ADA) provides guidance for cutoff values for fasting glucose and random glucose. The ADA defines fasting as no caloric intake for at least 8 hours. Fasting plasma glucose results between 100 to 125 mg/dL indicate increased risk for diabetes (prediabetes). Fasting plasma glucose results greater than or equal to 126 mg/dL meet the criteria for diagnosis of diabetes. In the absence of unequivocal hyperglycemia, results should be confirmed by repeat testing. In a patient with classic symptoms of hyperglycemia or hyperglycemic crisis, random plasma glucose results greater than or equal to 200 mg/dL meet the criteria for diagnosis of diabetes. Reference: Standards of Medical Care in Diabetes 2016, [place] [employer]. Diabetes Care. 2016.39(Suppl 1). Performed By: #### 2 4321-2 ####[facility] LABORATORYCLIA [id number] [place] [address] [place] Potassium [Moles/Vol] 4.7 mmol/L Normal 3.7-5.1 [facility] Comment on above: Order Comment: Doroteo zavala Type: BLOOD SPECIMENOrdering Facility: [facility] Address: [address] [place] [address] Performed By: #### 2 4321-2 ####[facility] LABORATORYCLIA [id number] [place] [address] [place] Sodium [Moles/Vol] 140 mmol/L Normal 136-144 [facility] Comment on above: Order Comment: Doroteo zavala Type: BLOOD SPECIMENOrdering Facility: [facility] Address: [address] [place] [address] Performed By: #### 2 4321-2 ####[facility] LABORATORYCLIA [id number] [place] [address] [place] Urea nitrogen [Mass/Vol] 8 mg/dL Low 9-24 [facility] Comment on above: Order Comment: Doroteo zavala Type: BLOOD SPECIMENOrdering Facility: [facility] Address: [address] [place] [address] Performed By: #### 2 4321-2 ####[facility] LABORATORYCLIA [id number] [place] [address] [place] CBC W Auto Differential pane l (Bld)on 04-23-2023 Basophils (Bld) [#/Vol] 0.10 10*3/uL <0.11 k/uL [facility] Basophils/100 WBC (Bld) 1.0 % [facility] Differential cell count method Nom (Bld) Auto [facility] Eosinophils (Bld) [#/Vol] 0.62 10*3/uL High <0.46 k/uL [facility] Eosinophils/100 WBC (Bld) 6.5 % [facility] Erythrocyte distribution width (RBC) [Ratio] 20.7 % High 11.5 - 15.0 % [facility] Hematocrit (Bld) [Volume fraction] 29.8 % Low 39.0 - 51.0 % [facility] Hemoglobin (Bld) [Mass/Vol] 8.5 g/dL Low 13.0 - 17.0 g/dL [facility] Immature granulocytes (Bld) [#/Vol] 0.14 10*3/uL High <0.10 k/uL [facility] Immature granulocytes/100 WBC (Bld) 1.5 % [facility] Lymphocytes (Bld) [#/Vol] 3.25 10*3/uL 1.00 - 4.00 k/uL [facility] Lymphocytes/100 WBC (Bld) 34.0 % [facility] MCH (RBC) [Entitic mass] 22.5 pg Low 26.0 - 34.0 pg [facility] MCHC (RBC) [Mass/Vol] 28.5 g/dL Low 30.5 - 36.0 g/dL [facility] MCV (RBC) [Entitic vol] 79.0 fL Low 80.0 - 100.0 fL [facility] Monocytes (Bld) [#/Vol] 1.01 10*3/uL High <0.87 k/uL [facility] Monocytes/100 WBC (Bld) 10.6 % [facility] Neutrophils (Bld) [#/Vol] 4.45 10*3/uL 1.45 - 7.50 k/uL [facility] Neutrophils/100 WBC (Bld) 46.4 % [facility] Nucleated RBC (Bld) [#/Vol] <0.01 k/uL [facility] Nucleated RBC/100 WBC (Bld) [Ratio] 0.0 /100 WBC [facility] Platelet mean volume (Bld) [Entitic vol] 9.4 fL 9.0 - 12.7 [facility]L [facility] Platelets (Bld) [#/Vol] 423 10*3/uL High 150 - 400 k/uL [facility] RBC (Bld) [#/Vol] 3.77 10*6/uL Low 4.20 - 6.0 0 m/uL [facility] WBC (Bld) [#/Vol] 9.57 10*3/uL 3.70 - 11.00 k/uL [facility] Basophils (Bld) [#/Vol] 0.10 10*3/uL Normal <0.11 [facility] Comment on above: Order Comment: Speci men Type: BLOOD SPECIMENOrdering Facility: [facility] Address: [address] [place] [address] Performed By: #### 5 7021-8 ####[facility] LABORATORYCLIA [id number] [place] [address] [place] Basophils/100 WBC (Bld) 1.0 % Normal [facility] Comment on above: Order Comment: Speci men Type: BLOOD SPECIMENOrdering Facility: [facility] Address: [address] [place] [address] Performed By: #### 5 7021-8 ####[facility] LABORATORYCLIA [id number] [place] [address] [place] Differential cell count method Nom (Bld) Auto Normal [facility] Comment on above: Order Comment: Speci men Type: BLOOD SPECIMENOrdering Facility: [facility] Address: [address] [place] [address] Performed By: #### 5 7021-8 ####[facility] LABORATORYCLIA [id number] [place] [address] [place] Eosinophils (Bld) [#/Vol] 0.62 10*3/uL High <0.46 [facility] Comment on above: Order Comment: Speci men Type: BLOOD SPECIMENOrdering Facility: [facility] Address: [address] [place] [address] Performed By: #### 5 7021-8 ####[facility] LABORATORYCLIA [id number] [place] [address] [place] Eosinophils/100 WBC (Bld) 6.5 % Normal [facility] Comment on above: Order Comment: Speci men Type: BLOOD SPECIMENOrdering Facility: [facility] Address: [address] [place] [address] Performed By: #### 5 7021-8 ####[facility]LLY[facility] LABORATORYCLIA [id number] [place] [address] [place] Erythrocyte distribution width (RBC) [Ratio] 20.7 % High 11.5-15.0 [facility] Comment on above: Order Comment: Speci men Type: BLOOD SPECIMENOrdering Facility: [facility] Address: [address] [place] [address] Performed By: #### 5 7021-8 ####MOLLYCRE LABORATORYCLIA [id number] [place] [address] [place] Hematocrit (Bld) [Volume fraction] 29.8 % Low 39.0-51.0 [facility] Comment on above: Order Comment: Speci men Type: BLOOD SPECIMENOrdering Facility: [facility] Address: [address] [place] [address] Performed By: #### 5 7021-8 ####MOLLYCRE LABORATORYCLIA [id number] [place] [address] [place] Hemoglobin (Bld) [Mass/Vol] 8.5 g/dL Low 13.0-17.0 [facility] Comment on above: Order Comment: Speci men Type: BLOOD SPECIMENOrdering Facility: [facility] Address: [address] [place] [address] Performed By: #### 5 7021-8 ####[facility]LLYCREST LABORATORYCLIA [id number] [place] [address] [place] Immature granulocytes (Bld) [#/Vol] 0.14 10*3/uL High <0.10 [facility] Comment on above: Order Comment: Speci men Type: BLOOD SPECIMENOrdering Facility: [facility] Address: [address] [place] [address] Performed By: #### 5 7021-8 ####[facility] LABORATORYCLIA [id number] [place] [address] [place] Immature granulocytes/100 WBC (Bld) 1.5 % Normal [facility] Comment on above: Order Comment: Speci men Type: BLOOD SPECIMENOrdering Facility: [facility] Address: [address] [place] [address] Performed By: #### 5 7021-8 ####MOLLYCREST LABORATORYCLIA [id number] [place] [address] [place] Lymphocytes (Bld) [#/Vol] 3.25 10*3/uL Normal 1.00-4.00 [facility] Comment on above: Order Comment: Speci men Type: BLOOD SPECIMENOrdering Facility: [facility] Address: [address] [place] [address] Performed By: #### 5 7021-8 ####MOLLYCREST LABORATORYCLIA [id number] [place] [address] [place] Lymphocytes/100 WBC (Bld) 34.0 % Normal [facility] Comment on above: Order Comment: Speci men Type: BLOOD SPECIMENOrdering Facility: [facility] Address: [address] [place] [address] Performed By: #### 5 7021-8 ####[facility]LLYCREST LABORATORYCLIA [id number] [place] [address] [place] MCH (RBC) [Entitic mass] 22.5 pg Low 26.0-34.0 [facility] Comment on above: Order Comment: Speci men Type: BLOOD SPECIMENOrdering Facility: [facility] Address: [address] [place] [address] Performed By: #### 5 7021-8 ####[facility] LABORATORYCLIA [id number] [place] [address] [place] MCHC (RBC) [Mass/Vol] 28.5 g/dL Low 30.5-36.0 [facility] Comment on above: Order Comment: Speci men Type: BLOOD SPECIMENOrdering Facility: [facility] Address: [address] [place] [address] Performed By: #### 5 7021-8 ####[facility]ST LABORATORYCLIA [id number] [place] [address] [place] MCV (RBC) [Entitic vol] 79.0 fL Low 80.0-100.0 [facility] Comment on above: Order Comment: Speci men Type: BLOOD SPECIMENOrdering Facility: [facility] Address: [address] [place] [address] Performed By: #### 5 7021-8 ####MOLLYCREST LABORATORYCLIA [id number] [place] [address] [place] Monocytes (Bld) [#/Vol] 1.01 10*3/uL High <0.87 [facility] Comment on above: Order Comment: Speci men Type: BLOOD SPECIMENOrdering Facility: [facility] Address: [address] [place] [address] Performed By: #### 5 7021-8 ####MOLLYCREST LABORATORYCLIA [id number] [place] [address] [place] Monocytes/100 WBC (Bld) 10.6 % Normal [facility] Comment on above: Order Comment: Speci men Type: BLOOD SPECIMENOrdering Facility: [facility] Address: [address] [place] [address] Performed By: #### 5 7021-8 ####[facility]LLY[facility]ST LABORATORYCLIA [id number] [place] [address] [place] Neutrophils (Bld) [#/Vol] 4.45 10*3/uL Normal 1.45-7.50 [facility] Comment on above: Order Comment: Speci men Type: BLOOD SPECIMENOrdering Facility: [facility] Address: [address] [place] [address] Performed By: #### 5 7021-8 ####[facility]ST LABORATORYCLIA [id number] [place] [address] [place] Neutrophils/100 WBC (Bld) 46.4 % Normal [facility] Comment on above: Order Comment: Speci men Type: BLOOD SPECIMENOrdering Facility: [facility] Address: [address] [place] [address] Performed By: #### 5 7021-8 ####[facility] LABORATORYCLIA [id number] [place] [address] [place] Nucleated RBC (Bld) [#/Vol] 10*3/uL Normal <0.01 [facility] Comment on above: Order Comment: Speci men Type: BLOOD SPECIMENOrdering Facility: [facility] Address: [address] [place] [address] Performed By: #### 5 7021-8 ####[facility]ST LABORATORYCLIA [id number] [place] [address] [place] Nucleated RBC/100 WBC (Bld) [Ratio] 0.0 /100 WBC Normal [facility] Comment on above: Order Comment: Speci men Type: BLOOD SPECIMENOrdering Facility: [facility] Address: [address] [place] [address] Performed By: #### 5 7021-8 ####[facility]ST LABORATORYCLIA [id number] [place] [address] [place] Platelet mean volume (Bld) [Entitic vol] 9.4 fL Normal 9.0-12.7 [facility] Comment on above: Order Comment: Speci men Type: BLOOD SPECIMENOrdering Facility: [facility] Address: [address] [place] [address] Performed By: #### 5 7021-8 ####[facility] LABORATORYCLIA [id number] [place] [address] [place] Platelets (Bld) [#/Vol] 423 10*3/uL High 150-400 [facility] Comment on above: Order Comment: Speci men Type: BLOOD SPECIMENOrdering Facility: [facility] Address: [address] [place] [address] Performed By: #### 5 7021-8 ####[facility] LABORATORYCLIA [id number] [place] [address] [place] RBC (Bld) [#/Vol] 3.77 10*6/uL Low 4.20-6.00 [facility] Comment on above: Order Comment: Speci men Type: BLOOD SPECIMENOrdering Facility: [facility] Address: [address] [place] [address] Performed By: #### 5 7021-8 ####[facility] LABORATORYCLIA [id number] [place] [address] [place] WBC (Bld) [#/Vol] 9.57 10*3/uL Normal 3.70-11.00 [facility] Comment on above: Order Comment: Speci men Type: BLOOD SPECIMENOrdering Facility: [facility] Address: [address] [place] [address] Performed By: #### 5 7021-8 ####[facility] LABORATORYCLIA [id number] [place] [address] [place] MAGNESIUM BLDon 04-23-2023 Magnesium [Mass/Vol] 1.7 mg/dL 1.7 - 2 .3 mg/dL [facility] Magnesium SerPl-mCncon 04-23 Magnesium [Mass/Vol] 1.7 mg/dL Normal 1.7-2.3 [facility] Comment on above: Order Comment: Speci men Type: BLOOD SPECIMENOrdering Facility: [facility] Address: [address] [place] [address] Performed By: #### 1 9123-9 ####[facility]ST LABORATORYCLIA [id number] [place] [address] [place] CBC W Auto Differential pane l (Bld)on 04-18-2023 Basophils (Bld) [#/Vol] 0.09 10*3/uL Normal <0.11 [facility] Comment on above: Order Comment: Speci men Type: BLOOD SPECIMEN [facility] Address: [address] [place] [address] Performed By: #### T SCR #### [facility] CLIA [id number] [address] [place] [address] [place] Basophils/100 WBC (Bld) 1.2 % Normal [facility] Comment on above: Order Comment: Speci men Type: BLOOD SPECIMEN [facility] Address: [address] [place] [address] Performed By: #### T SCR #### [facility] CLIA [id number] [address] [place] [address] [place] Differential cell count method Nom (Bld) Auto Normal [facility] Comment on above: Order Comment: Speci men Type: BLOOD SPECIMEN [facility] Address: [address] [place] [address] Performed By: #### T SCR #### [facility] CLIA [id number] [address] [place] [address] [place] Eosinophils (Bld) [#/Vol] 0.73 10*3/uL High <0.46 [facility] Comment on above: Order Comment: Speci men Type: BLOOD SPECIMEN [facility] Address: [address] [place] [address] Performed By: #### T SCR #### [facility] CLIA [id number] [address] [place] [address] [place] Eosinophils/100 WBC (Bld) 9.4 % Normal [facility] Comment on above: Order Comment: Speci men Type: BLOOD SPECIMEN [facility] Address: [address] [place] [address] Performed By: #### T SCR #### [facility] CLIA [id number] [address] [place] [address] [place] Erythrocyte distribution width (RBC) [Ratio] 20.9 % High 11.5-15.0 [facility] Comment on above: Order Comment: Speci men Type: BLOOD SPECIMEN [facility] Address: [address] [place] [address] Performed By: #### T SCR #### [facility] CLIA [id number] [address] [place] [address] [place] Hematocrit (Bld) [Volume fraction] 28.3 % Low 39.0-51.0 [facility] Comment on above: Order Comment: Speci men Type: BLOOD SPECIMEN [facility] Address: [address] [place] [address] Performed By: #### T SCR #### [facility] CLIA [id number] [address] [place] [address] [place] Hemoglobin (Bld) [Mass/Vol] 8.1 g/dL Low 13.0-17.0 [facility] Comment on above: Order Comment: Speci men Type: BLOOD SPECIMEN [facility] Address: [address] [place] [address] Performed By: #### T SCR #### [facility] CLIA [id number] [address] [place] [address] [place] Immature granulocytes (Bld) [#/Vol] 0.12 10*3/uL High <0.10 [facility] Comment on above: Order Comment: Speci men Type: BLOOD SPECIMEN [facility] Address: [address] [place] [address] Performed By: #### T SCR #### [facility] CLIA [id number] [address] [place] [address] [place] Immature granulocytes/100 WBC (Bld) 1.5 % Normal [facility] Comment on above: Order Comment: Speci men Type: BLOOD SPECIMEN [facility] Address: [address] [place] [address] Performed By: #### T SCR #### [facility] CLIA [id number] [address] [place] [address] [place] Lymphocytes (Bld) [#/Vol] 2.84 10*3/uL Normal 1.00-4.00 [facility] Comment on above: Order Comment: Speci men Type: BLOOD SPECIMEN [facility] Address: [address] [place] [address] Performed By: #### T SCR #### [facility] CLIA [id number] [address] [place] [address] [place] Lymphocytes/100 WBC (Bld) 36.5 % Normal [facility] Comment on above: Order Comment: Speci men Type: BLOOD SPECIMEN [facility] Address: [address] [place] [address] Performed By: #### T SCR #### [facility] CLIA [id number] [address] [place] [address] [place] MCH (RBC) [Entitic mass] 22.9 pg Low 26.0-34.0 [facility] Comment on above: Order Comment: Speci men Type: BLOOD SPECIMEN [facility] Address: [address] [place] [address] Performed By: #### T SCR #### [facility] CLIA [id number] [address] [place] [address] [place] MCHC (RBC) [Mass/Vol] 28.6 g/dL Low 30.5-36.0 [facility] Comment on above: Order Comment: Speci men Type: BLOOD SPECIMEN [facility] Address: [address] [place] [address] Performed By: #### T SCR #### [facility] CLIA [id number] [address] [place] [address] [place] MCV (RBC) [Entitic vol] 80.2 fL Normal 80.0-100.0 [facility] Comment on above: Order Comment: Speci men Type: BLOOD SPECIMEN [facility] Address: [address] [place] [address] Performed By: #### T SCR #### [facility] CLIA [id number] [address] [place] [address] [place] Monocytes (Bld) [#/Vol] 0.72 10*3/uL Normal <0.87 [facility] Comment on above: Order Comment: Speci men Type: BLOOD SPECIMEN [facility] Address: [address] [place] [address] Performed By: #### T SCR #### [facility] CLIA [id number] [address] [place] [address] [place] Monocytes/100 WBC (Bld) 9.2 % Normal [facility] Comment on above: Order Comment: Speci men Type: BLOOD SPECIMEN [facility] Address: [address] [place] [address] Performed By: #### T SCR #### [facility] CLIA [id number] [address] [place] [address] [place] Neutrophils (Bld) [#/Vol] 3.29 10*3/uL Normal 1.45-7.50 [facility] Comment on above: Order Comment: Speci men Type: BLOOD SPECIMEN [facility] Address: [address] [place] [address] Performed By: #### T SCR #### [facility] CLIA [id number] [address] [place] [address] [place] Neutrophils/100 WBC (Bld) 42.2 % Normal [facility] Comment on above: Order Comment: Speci men Type: BLOOD SPECIMEN [facility] Address: [address] [place] [address] Performed By: #### T SCR #### [facility] CLIA [id number] [address] [place] [address] [place] Nucleated RBC (Bld) [#/Vol] <0.01 k/uL [facility] Nucleated RBC/100 WBC (Bld) [Ratio] 0.0 /100 WBC Normal [facility] Comment on above: Order Comment: Speci men Type: BLOOD SPECIMEN [facility] Address: [address] [place] [address] Performed By: #### T SCR #### [facility] CLIA [id number] [address] [place] [address] [place] Platelet mean volume (Bld) [Entitic vol] 9.1 fL Normal 9.0-12.7 [facility] Comment on above: Order Comment: Speci men Type: BLOOD SPECIMEN [facility] Address: [address] [place] [address] Performed By: #### T SCR #### [facility] CLIA [id number] [address] [place] [address] [place] Platelets (Bld) [#/Vol] 435 10*3/uL High 150-400 [facility] Comment on above: Order Comment: Speci men Type: BLOOD SPECIMEN [facility] Address: [address] [place] [address] Performed By: #### T SCR #### [facility] CLIA [id number] [address] [place] [address] [place] RBC (Bld) [#/Vol] 3.53 10*6/uL Low 4.20-6.00 [facility] Comment on above: Order Comment: Speci men Type: BLOOD SPECIMEN [facility] Address: [address] [place] [address] Performed By: #### T SCR #### [facility] CLIA [id number] [address] [place] [address] [place] WBC (Bld) [#/Vol] 7.79 10*3/uL Normal 3.70-11.00 [facility] Comment on above: Order Comment: Speci men Type: BLOOD SPECIMEN [facility] Address: [address] [place] [address] Performed By: #### T SCR #### [facility] CLIA [id number] [address] [place] [address] [place] Nucleated RBC (Bld) [#/Vol] 10*3/uL Normal <0.01 [facility] Comment on above: Order Comment: Speci men Type: BLOOD SPECIMEN [facility] Address: [address] [place] [address] Performed By: #### T SCR #### [facility] CLIA [id number] [address] [place] [address] [place] Comprehensive metabolic 2000 panelon 04-18-2023 Albumin [Mass/Vol] 3.3 g/dL Low 3.9-4.9 [facility] Comment on above: Order Comment: Speci men Type: BLOOD SPECIMENOrdering Facility: [facility] Address: [address] [place] [address] Performed By: #### 2 4323-8 ####[facility] LABORATORYCLIA [id number] [place] [address] [place] ALP [Catalytic activity/Vol] 98 U/L Normal 38-113 [facility] Comment on above: Order Comment: Speci men Type: BLOOD SPECIMENOrdering Facility: [facility] Address: [address] [place] [address] Performed By: #### 2 4323-8 ####[facility] LABORATORYCLIA [id number] [place] [address] [place] ALT [Catalytic activity/Vol] 13 U/L Normal 10-54 [facility] Comment on above: Order Comment: Speci men Type: BLOOD SPECIMENOrdering Facility: [facility] Address: [address] [place] [address] Performed By: #### 2 4323-8 ####[facility] LABORATORYCLIA [id number] [place] [address] [place] Anion gap [Moles/Vol] 16 mmol/L Normal 9-18 [facility] Comment on above: Order Comment: Speci men Type: BLOOD SPECIMENOrdering Facility: [facility] Address: [address] [place] [address] Performed By: #### 2 4323-8 ####[facility] LABORATORYCLIA [id number] [place] [address] [place] AST [Catalytic activity/Vol] 21 U/L Normal 14-40 [facility] Comment on above: Order Comment: Speci men Type: BLOOD SPECIMENOrdering Facility: [facility] Address: [address] [place] [address] Performed By: #### 2 4323-8 ####[facility] LABORATORYCLIA [id number] [place] [address] [place] Bilirubin [Mass/Vol] 0.2 mg/dL Normal 0.2-1.3 [facility] Comment on above: Order Comment: Speci men Type: BLOOD SPECIMENOrdering Facility: [facility] Address: [address] [place] [address] Performed By: #### 2 4323-8 ####[facility] LABORATORYCLIA [id number] [place] [address] [place] Calcium [Mass/Vol] 9.2 mg/dL Normal 8.5-10.2 [facility] Comment on above: Order Comment: Speci men Type: BLOOD SPECIMENOrdering Facility: [facility] Address: [address] [place] [address] Performed By: #### 2 4323-8 ####[facility] LABORATORYCLIA [id number] [place] [address] [place] Chloride [Moles/Vol] 98 mmol/L Normal 97-105 [facility] Comment on above: Order Comment: Speci men Type: BLOOD SPECIMENOrdering Facility: [facility] Address: [address] [place] [address] Performed By: #### 2 4323-8 ####[facility] LABORATORYCLIA [id number] [place] [address] [place] CO2 [Moles/Vol] 25 mmol/L Normal 22-30 [facility] Comment on above: Order Comment: Doroteo lucas Type: BLOOD SPECIMENOrdering Facility: [facility] Address: [address] [place] [address] Performed By: #### 2 4323-8 ####[facility] LABORATORYCLIA [id number] [place] [address] [place] Creatinine [Mass/Vol] 0.49 mg/dL Low 0.73-1.22 [facility] Comment on above: Order Comment: Salinai lucas Type: BLOOD SPECIMENOrdering Facility: [facility] Address: [address] [place] [address] Performed By: #### 2 4323-8 ####[facility] LABORATORYCLIA [id number] [place] [address] [place] Estimated Glomerular Filtration Rate 121 mL/min/1.73m >=60 mL/min/1.73 m [facility] Glucose [Mass/Vol] 164 mg/dL High 74-99 [facility] Comment on above: Order Comment: Salinacaryn zavala Type: BLOOD SPECIMENOrdering Facility: [facility] Address: [address] [place] [address] Result Comment: The [place] [employer] (ADA) provides guidance for cutoff values for fasting glucose and random glucose. The ADA defines fasting as no caloric intake for at least 8 hours. Fasting plasma glucose results between 100 to 125 mg/dL indicate increased risk for diabetes (prediabetes). Fasting plasma glucose results greater than or equal to 126 mg/dL meet the criteria for diagnosis of diabetes. In the absence of unequivocal hyperglycemia, results should be confirmed by repeat testing. In a patient with classic symptoms of hyperglycemia or hyperglycemic crisis, random plasma glucose results greater than or equal to 200 mg/dL meet the criteria for diagnosis of diabetes. Reference: Standards of Medical Care in Diabetes 2016, [place] [employer]. Diabetes Care. 2016.39(Suppl 1). Performed By: #### 2 4323-8 ####[facility] LABORATORYCLIA [id number] [place] [address] [place] Potassium [Moles/Vol] 4.7 mmol/L Normal 3.7-5.1 [facility] Comment on above: Order Comment: Speci men Type: BLOOD SPECIMENOrdering Facility: [facility] Address: [address] [place] [address] Performed By: #### 2 4323-8 ####[facility] LABORATORYCLIA [id number] [place] [address] [place] Protein [Mass/Vol] 6.8 g/dL Normal 6.3-8.0 [facility] Comment on above: Order Comment: Speci men Type: BLOOD SPECIMENOrdering Facility: [facility] Address: [address] [place] [address] Performed By: #### 2 4323-8 ####[facility] LABORATORYCLIA [id number] [place] [address] [place] Sodium [Moles/Vol] 139 mmol/L Normal 136-144 [facility] Comment on above: Order Comment: Speci men Type: BLOOD SPECIMENOrdering Facility: [facility] Address: [address] [place] [address] Performed By: #### 2 4323-8 ####[facility] LABORATORYCLIA [id number] [place] [address] [place] Urea nitrogen [Mass/Vol] 8 mg/dL Low 9-24 [facility] Comment on above: Order Comment: Speci men Type: BLOOD SPECIMENOrdering Facility: [facility] Address: [address] [place] [address] Performed By: #### 2 4323-8 ####[facility] LABORATORYCLIA [id number] [place] [address] [place] Creatinine and Glomerular filtration rate.predicted panel (S/P/Bld) 121 mL/min/1.73m??? Normal >=60 [facility] Comment on above: Order Comment: Speci men Type: BLOOD SPECIMENOrdering Facility: [facility] Address: [address] [place] [address] Result Comment: Lola mated Glomerular Filtration Rate (eGFR) is calculated using the 2020 CKD-EPI creatinine equation. This equation utilizes serum creatinine, sex, and age as parameters. The creatinine assay has traceable calibration to isotope dilution-mass spectrometry. Refer to KDIGO guidelines for clinical interpretation. In patients with unstable renal function, e.g. those with acute kidney injury, the eGFR may not accurately reflect actual GFR. Performed By: #### 2 4323-8 ####JASMEETST LABORATORYCLIA [id number] [place] [address] [place] Laboratory - Chemistry and C hemistry - challengeon 04-18-2023 CK [Catalytic activity/Vol] 18 U/L Low 51-298 [facility] Comment on above: Order Comment: Doroteo zavala Type: BLOOD SPECIMENOrdering Facility: [facility] Address: [address] [place] [address] Performed By: #### 2 157-6 ####[facility] LABORATORYCLIA [id number] [place] [address] [place] CRP [Mass/Vol] 7.6 mg/dL High <0.9 [facility] Comment on above: Order Comment: Doroteo zavala Type: BLOOD SPECIMENOrdering Facility: [facility] Address: [address] [place] [address] Performed By: #### 1 988-5 ####[facility]ORATORYCLIA [id number] [place] [address] [place] Basic metabolic 2000 panelon 04-13-2023 Anion gap [Moles/Vol] 12 mmol/L 9 - 18 mmol/L [facility] Calcium [Mass/Vol] 8.9 mg/dL 8.5 - 10. 2 mg/dL [facility] Chloride [Moles/Vol] 100 mmol/L 97 - 10 5 mmol/L [facility] CO2 [Moles/Vol] 26 mmol/L 22 - 30 mmol/L [facility] Creatinine [Mass/Vol] 0.41 mg/dL Low 0.73 - 1.22 mg/dL [facility] Estimated Glomerular Filtration Rate 128 mL/min/1.73m >=60 mL/min/1.73 m [facility] Glucose [Mass/Vol] 134 mg/dL High 74 - 99 mg/dL [facility] Potassium [Moles/Vol] 4.5 mmol/L 3.7 - 5.1 mmol/L [facility] Sodium [Moles/Vol] 138 mmol/L 136 - 144 mmol/L [facility] Urea nitrogen [Mass/Vol] 7 mg/dL Low 9 - 24 mg/dL [facility] Anion gap [Moles/Vol] 12 mmol/L Normal 9-18 [facility] Comment on above: Order Comment: Speci men Type: BLOOD SPECIMEN Ordering Facility: [facility] Address: [address] [place] [address] Performed By: #### 1 988-5 #### [facility] CLIA [id number] [address] [place] [address] [place] Calcium [Mass/Vol] 8.9 mg/dL Normal 8.5-10.2 [facility] Comment on above: Order Comment: Speci men Type: BLOOD SPECIMEN Ordering Facility: [facility] Address: [address] [place] [address] Performed By: #### 1 988-5 #### [facility] CLIA [id number] [address] [place] [address] [place] Chloride [Moles/Vol] 100 mmol/L Normal 97-105 [facility] Comment on above: Order Comment: Speci men Type: BLOOD SPECIMEN Ordering Facility: [facility] Address: [address] [place] [address] Performed By: #### 1 988-5 #### [facility] CLIA [id number] [address] [place] [address] [place] CO2 [Moles/Vol] 26 mmol/L Normal 22-30 [facility] Comment on above: Order Comment: Speci men Type: BLOOD SPECIMEN Ordering Facility: [facility] Address: [address] [place] [address] Performed By: #### 1 988-5 #### [facility] CLIA [id number] [address] [place] [address] [place] Creatinine [Mass/Vol] 0.41 mg/dL Low 0.73-1.22 [facility] Comment on above: Order Comment: Doroteo zavala Type: BLOOD SPECIMEN Ordering Facility: [facility] Address: [address] [place] [address] Performed By: #### 1 988-5 #### [facility] CLIA [id number] [address] [place] [address] [place] Creatinine and Glomerular filtration rate.predicted panel (S/P/Bld) 128 mL/min/1.73m??? Normal >=60 [facility] Comment on above: Order Comment: Doroteo zavala Type: BLOOD SPECIMEN Ordering Facility: [facility] Address: [address] [place] [address] Result Comment: Lola mated Glomerular Filtration Rate (eGFR) is calculated using the 2020 CKD-EPI creatinine equation. This equation utilizes serum creatinine, sex, and age as parameters. The creatinine assay has traceable calibration to isotope dilution-mass spectrometry. Refer to KDIGO guidelines for clinical interpretation. In patients with unstable renal function, e.g. those with acute kidney injury, the eGFR may not accurately reflect actual GFR. Performed By: #### 1 988-5 #### [facility] CLIA [id number] [address] [place] [address] [place] Glucose [Mass/Vol] 134 mg/dL High 74-99 [facility] Comment on above: Order Comment: Doroteo zavala Type: BLOOD SPECIMEN Ordering Facility: [facility] Address: [address] [place] [address] Result Comment: The [place] Diabetes Association (ADA) provides guidance for cutoff values for fasting glucose and random glucose. The ADA defines fasting as no caloric intake for at least 8 hours. Fasting plasma glucose results between 100 to 125 mg/dL indicate increased risk for diabetes (prediabetes). Fasting plasma glucose results greater than or equal to 126 mg/dL meet the criteria for diagnosis of diabetes. In the absence of unequivocal hyperglycemia, results should be confirmed by repeat testing. In a patient with classic symptoms of hyperglycemia or hyperglycemic crisis, random plasma glucose results greater than or equal to 200 mg/dL meet the criteria for diagnosis of diabetes. Reference: Standards of Medical Care in Diabetes 2016, [place] [employer]. Diabetes Care. 2016.39(Suppl 1). Performed By: #### 1 988-5 #### [facility] CLIA [id number] [address] [place] [address] [place] Potassium [Moles/Vol] 4.5 mmol/L Normal 3.7-5.1 [facility] Comment on above: Order Comment: Speci men Type: BLOOD SPECIMEN Ordering Facility: [facility] Address: [address] [place] [address] Performed By: #### 1 988-5 #### [facility] CLIA [id number] [address] [place] [address] [place] Sodium [Moles/Vol] 138 mmol/L Normal 136-144 [facility] Comment on above: Order Comment: Speci men Type: BLOOD SPECIMEN Ordering Facility: [facility] Address: [address] [place] [address] Performed By: #### 1 988-5 #### [facility] CLIA [id number] [address] [place] [address] [place] Urea nitrogen [Mass/Vol] 7 mg/dL Low 9-24 [facility] Comment on above: Order Comment: Salinai men Type: BLOOD SPECIMEN Ordering Facility: [facility] Address: [address] [place] [address] Performed By: #### 1 988-5 #### [facility] CLIA [id number] [address] [place] [address] [place] CBC W Auto Differential pane l (Bld)on 04-13-2023 Anisocytosis Ql (Bld) Present [facility] Basophils (Bld) [#/Vol] 0.00 10*3/uL <0.11 k/uL [facility] Basophils/100 WBC (Bld) 0.0 % [facility] Differential cell count method Nom (Bld) Manual [facility] Eosinophils (Bld) [#/Vol] 0.92 10*3/uL High <0.46 k/uL [facility] Eosinophils/100 WBC (Bld) 10.0 % [facility] Erythrocyte distribution width (RBC) [Ratio] 20.8 % High 11.5 - 15.0 % [facility] Giant platelets LM Ql (Bld) Occasional [facility] Hematocrit (Bld) [Volume fraction] 27.8 % Low 39.0 - 51.0 % [facility] Hemoglobin (Bld) [Mass/Vol] 7.8 g/dL Low 13.0 - 17.0 g/dL [facility] Lymphocytes (Bld) [#/Vol] 2.76 10*3/uL 1.00 - 4.00 k/uL [facility] Lymphocytes/100 WBC (Bld) 30.0 % [facility] MCH (RBC) [Entitic mass] 22.5 pg Low 26.0 - 34.0 pg [facility] MCHC (RBC) [Mass/Vol] 28.1 g/dL Low 30.5 - 36.0 g/dL [facility] MCV (RBC) [Entitic vol] 80.1 fL 80.0 - 100.0 fL [facility] Desmet % 1.0 % [facility] Monocytes (Bld) [#/Vol] 0.55 10*3/uL <0.87 k/uL [facility] Monocytes/100 WBC (Bld) 6.0 % [facility] Neutrophils (Bld) [#/Vol] 4.87 10*3/uL 1.45 - 7.50 k/uL [facility] Neutrophils/100 WBC (Bld) 53.0 % [facility] Nucleated RBC (Bld) [#/Vol] <0.01 k/uL [facility] Nucleated RBC/100 WBC (Bld) [Ratio] 0.0 /100 WBC [facility] Ovalocytes LM Ql (Bld) Few Cl [facility] Platelet mean volume (Bld) [Entitic vol] 9.1 fL 9.0 - 12.7 fL [facility] Platelets (Bld) [#/Vol] 437 10*3/uL High 150 - 400 k/uL [facility] Platelets Estimate (Bld) [#/Vol] Increased [facility] Polychromasia LM Ql (Bld) Slight [facility] RBC (Bld) [#/Vol] 3.47 10*6/uL Low 4.20 - 6.0 0 m/uL [facility] RBC Fragments Few Abnormal None Seen [facility] Red Cell Morph Reviewed: see result s of individual morphologies [facility] WBC (Bld) [#/Vol] 9.19 10*3/uL 3.70 - 11.00 k/uL [facility] WBC Left Shift Ql (Bld) Present [facility] Anisocytosis Ql (Bld) Present Normal [facility] Comment on above: Order Comment: Speci men Type: BLOOD SPECIMENOrdering Facility: [facility] Address: [address] [place] [address] Performed By: #### 5 7021-8 ####[facility]ORATORYCLIA [id number] [place] [address] [place] Basophils (Bld) [#/Vol] 0.00 10*3/uL Normal <0.11 [facility] Comment on above: Order Comment: Speci men Type: BLOOD SPECIMENOrdering Facility: [facility] Address: [address] [place] [address] Performed By: #### 5 7021-8 ####[facility] LABORATORYCLIA [id number] [place] [address] [place] Basophils/100 WBC (Bld) 0.0 % Normal [facility] Comment on above: Order Comment: Speci men Type: BLOOD SPECIMENOrdering Facility: [facility] Address: [address] [place] [address] Performed By: #### 5 7021-8 ####[facility] LABORATORYCLIA [id number] [place] [address] [place] Differential cell count method Nom (Bld) Manual Normal [facility] Comment on above: Order Comment: Speci men Type: BLOOD SPECIMENOrdering Facility: [facility] Address: [address] [place] [address] Performed By: #### 5 7021-8 ####[facility]ORATORYCLIA [id number] [place] [address] [place] Eosinophils (Bld) [#/Vol] 0.92 10*3/uL High <0.46 [facility] Comment on above: Order Comment: Speci men Type: BLOOD SPECIMENOrdering Facility: [facility] Address: [address] [place] [address] Performed By: #### 5 7021-8 ####[facility] LABORATORYCLIA [id number] [place] [address] [place] Eosinophils/100 WBC (Bld) 10.0 % Normal [facility] Comment on above: Order Comment: Speci men Type: BLOOD SPECIMENOrdering Facility: [facility] Address: [address] [place] [address] Performed By: #### 5 7021-8 ####[facility]ORATORYCLIA [id number] [place] [address] [place] Erythrocyte distribution width (RBC) [Ratio] 20.8 % High 11.5-15.0 [facility] Comment on above: Order Comment: Speci men Type: BLOOD SPECIMENOrdering Facility: [facility] Address: [address] [place] [address] Performed By: #### 5 7021-8 ####[facility] LABORATORYCLIA [id number] [place] [address] [place] Giant platelets LM Ql (Bld) Occasional Normal [facility] Comment on above: Order Comment: Speci men Type: BLOOD SPECIMENOrdering Facility: [facility] Address: [address] [place] [address] Performed By: #### 5 7021-8 ####[facility] LABORATORYCLIA [id number] [place] [address] [place] Hematocrit (Bld) [Volume fraction] 27.8 % Low 39.0-51.0 [facility] Comment on above: Order Comment: Speci men Type: BLOOD SPECIMENOrdering Facility: [facility] Address: [address] [place] [address] Performed By: #### 5 7021-8 ####[facility] LABORATORYCLIA [id number] [place] [address] [place] Hemoglobin (Bld) [Mass/Vol] 7.8 g/dL Low 13.0-17.0 [facility] Comment on above: Order Comment: Speci men Type: BLOOD SPECIMENOrdering Facility: [facility] Address: [address] [place] [address] Performed By: #### 5 7021-8 ####[facility] LABORATORYCLIA [id number] [place] [address] [place] Lymphocytes (Bld) [#/Vol] 2.76 10*3/uL Normal 1.00-4.00 [facility] Comment on above: Order Comment: Speci men Type: BLOOD SPECIMENOrdering Facility: [facility] Address: [address] [place] [address] Performed By: #### 5 7021-8 ####[facility] LABORATORYCLIA [id number] [place] [address] [place] Lymphocytes/100 WBC (Bld) 30.0 % Normal [facility] Comment on above: Order Comment: Speci men Type: BLOOD SPECIMENOrdering Facility: [facility] Address: [address] [place] [address] Performed By: #### 5 7021-8 ####[facility] LABORATORYCLIA [id number] [place] [address] [place] MCH (RBC) [Entitic mass] 22.5 pg Low 26.0-34.0 [facility] Comment on above: Order Comment: Speci men Type: BLOOD SPECIMENOrdering Facility: [facility] Address: [address] [place] [address] Performed By: #### 5 7021-8 ####[facility]ATORYCLIA [id number] [place] [address] [place] MCHC (RBC) [Mass/Vol] 28.1 g/dL Low 30.5-36.0 [facility] Comment on above: Order Comment: Speci men Type: BLOOD SPECIMENOrdering Facility: [facility] Address: [address] [place] [address] Performed By: #### 5 7021-8 ####[facility]ATORYCLIA [id number] [place] [address] [place] MCV (RBC) [Entitic vol] 80.1 fL Normal 80.0-100.0 [facility] Comment on above: Order Comment: Speci men Type: BLOOD SPECIMENOrdering Facility: [facility] Address: [address] [place] [address] Performed By: #### 5 7021-8 ####[facility]ORATORYCLIA [id number] [place] [address] [place] Metamyelocytes/100 WBC (Bld) 1.0 % Normal [facility] Comment on above: Order Comment: Speci men Type: BLOOD SPECIMENOrdering Facility: [facility] Address: [address] [place] [address] Performed By: #### 5 7021-8 ####[facility]ATORYCLIA [id number] [place] [address] [place] Monocytes (Bld) [#/Vol] 0.55 10*3/uL Normal <0.87 [facility] Comment on above: Order Comment: Speci men Type: BLOOD SPECIMENOrdering Facility: [facility] Address: [address] [place] [address] Performed By: #### 5 7021-8 ####[facility]ATORYCLIA [id number] [place] [address] [place] Monocytes/100 WBC (Bld) 6.0 % Normal [facility] Comment on above: Order Comment: Speci men Type: BLOOD SPECIMENOrdering Facility: [facility] Address: [address] [place] [address] Performed By: #### 5 7021-8 ####[facility]ORYCLIA [id number] [place] [address] [place] Neutrophils (Bld) [#/Vol] 4.87 10*3/uL Normal 1.45-7.50 [facility] Comment on above: Order Comment: Speci men Type: BLOOD SPECIMENOrdering Facility: [facility] Address: [address] [place] [address] Performed By: #### 5 7021-8 ####[facility]ATORYCLIA [id number] [place] [address] [place] Neutrophils/100 WBC (Bld) 53.0 % Normal [facility] Comment on above: Order Comment: Speci men Type: BLOOD SPECIMENOrdering Facility: [facility] Address: [address] [place] [address] Performed By: #### 5 7021-8 ####[facility]ATORYCLIA [id number] [place] [address] [place] Nucleated RBC (Bld) [#/Vol] 10*3/uL Normal <0.01 [facility] Comment on above: Order Comment: Speci men Type: BLOOD SPECIMENOrdering Facility: [facility] Address: [address] [place] [address] Performed By: #### 5 7021-8 ####[facility]ATORYCLIA [id number] [place] [address] [place] Nucleated RBC/100 WBC (Bld) [Ratio] 0.0 /100 WBC Normal [facility] Comment on above: Order Comment: Speci men Type: BLOOD SPECIMENOrdering Facility: [facility] Address: [address] [place] [address] Performed By: #### 5 7021-8 ####[facility]ATORYCLIA [id number] [place] [address] [place] Ovalocytes LM Ql (Bld) Few Normal Cl [facility] Comment on above: Order Comment: Speci men Type: BLOOD SPECIMENOrdering Facility: [facility] Address: [address] [place] [address] Performed By: #### 5 7021-8 ####[facility]ORYCLIA [id number] [place] [address] [place] Platelet mean volume (Bld) [Entitic vol] 9.1 fL Normal 9.0-12.7 [facility] Comment on above: Order Comment: Speci men Type: BLOOD SPECIMENOrdering Facility: [facility] Address: [address] [place] [address] Performed By: #### 5 7021-8 ####[facility]ATORYCLIA [id number] [place] [address] [place] Platelets (Bld) [#/Vol] 437 10*3/uL High 150-400 [facility] Comment on above: Order Comment: Speci men Type: BLOOD SPECIMENOrdering Facility: [facility] Address: [address] [place] [address] Performed By: #### 5 7021-8 ####[facility]ORYCLIA [id number] [place] [address] [place] Platelets Estimate (Bld) [#/Vol] Increased Normal [facility] Comment on above: Order Comment: Speci men Type: BLOOD SPECIMENOrdering Facility: [facility] Address: [address] [place] [address] Performed By: #### 5 7021-8 ####[facility]ORYCLIA [id number] [place] [address] [place] Polychromasia LM Ql (Bld) Slight Normal [facility] Comment on above: Order Comment: Speci men Type: BLOOD SPECIMENOrdering Facility: [facility] Address: [address] [place] [address] Performed By: #### 5 7021-8 ####[facility]ORYCLIA [id number] [place] [address] [place] RBC (Bld) [#/Vol] 3.47 10*6/uL Low 4.20-6.00 [facility] Comment on above: Order Comment: Speci men Type: BLOOD SPECIMENOrdering Facility: [facility] Address: [address] [place] [address] Performed By: #### 5 7021-8 ####[facility]ORYCLIA [id number] [place] [address] [place] RBC FRAGMENTS Few Abnormal None Seen [facility] Comment on above: Order Comment: Speci men Type: BLOOD SPECIMENOrdering Facility: [facility] Address: [address] [place] [address] Performed By: #### 5 7021-8 ####[facility]ATORYCLIA [id number] [place] [address] [place] RED CELL MORPH Reviewed: see result s of individual morphologies Normal [facility] Comment on above: Order Comment: Speci men Type: BLOOD SPECIMENOrdering Facility: [facility] Address: [address] [place] [address] Performed By: #### 5 7021-8 ####[facility]ORYCLIA [id number] [place] [address] [place] WBC (Bld) [#/Vol] 9.19 10*3/uL Normal 3.70-11.00 [facility] Comment on above: Order Comment: Speci men Type: BLOOD SPECIMENOrdering Facility: [facility] Address: [address] [place] [address] Performed By: #### 5 7021-8 ####[facility]ORYCLIA [id number] [place] [address] [place] WBC Left Shift Ql (Bld) Present Normal [facility] Comment on above: Order Comment: Speci men Type: BLOOD SPECIMENOrdering Facility: [facility] Address: [address] [place] [address] Performed By: #### 5 7021-8 ####[facility]ORYCLIA [id number] [place] [address] [place] C-REACTIVE PROTEIN (CRP)on 06-11-2022 CRP [Mass/Vol] 5.3 mg/dL High <0.9 mg/dL [facility] CBC W Auto Differential pane l (Bld)on 04-11-2023 Anisocytosis Ql (Bld) Present [facility] Basophils (Bld) [#/Vol] 0.00 10*3/uL <0.11 k/uL [facility] Basophils/100 WBC (Bld) 0.0 % [facility] Differential cell count method Nom (Bld) Manual [facility] Eosinophils (Bld) [#/Vol] 1.06 10*3/uL High <0.46 k/uL [facility] Eosinophils/100 WBC (Bld) 10.0 % [facility] Erythrocyte distribution width (RBC) [Ratio] 20.7 % High 11.5 - 15.0 % [facility] Hematocrit (Bld) [Volume fraction] 26.2 % Low 39.0 - 51.0 % [facility] Hemoglobin (Bld) [Mass/Vol] 7.4 g/dL Low 13.0 - 17.0 g/dL [facility] Lymphocytes (Bld) [#/Vol] 2.64 10*3/uL 1.00 - 4.00 k/uL [facility] Lymphocytes/100 WBC (Bld) 25.0 % [facility] MCH (RBC) [Entitic mass] 22.7 pg Low 26.0 - 34.0 pg [facility] MCHC (RBC) [Mass/Vol] 28.2 g/dL Low 30.5 - 36.0 g/dL [facility] MCV (RBC) [Entitic vol] 80.4 fL 80.0 - 100.0 fL [facility] Monocytes (Bld) [#/Vol] 0.63 10*3/uL <0.87 k/uL [facility] Monocytes/100 WBC (Bld) 6.0 % [facility] Neutrophils (Bld) [#/Vol] 6.24 10*3/uL 1.45 - 7.50 k/uL [facility] Neutrophils/100 WBC (Bld) 59.0 % [facility] Nucleated RBC (Bld) [#/Vol] <0.01 k/uL [facility] Nucleated RBC/100 WBC (Bld) [Ratio] 0.0 /100 WBC [facility] Ovalocytes LM Ql (Bld) Few Cl [facility] Platelet mean volume (Bld) [Entitic vol] 9.8 fL 9.0 - 12.7 fL [facility] Platelets (Bld) [#/Vol] 429 10*3/uL High 150 - 400 k/uL [facility] Platelets Estimate (Bld) [#/Vol] Increased [facility] Polychromasia LM Ql (Bld) Slight [facility] RBC (Bld) [#/Vol] 3.26 10*6/uL Low 4.20 - 6.0 0 m/uL [facility] Red Cell Morph Reviewed: see result s of individual morphologies [facility] WBC (Bld) [#/Vol] 10.57 10*3/uL 3.70 - 11.00 k/uL [facility] WBC Left Shift Ql (Bld) Present [facility] Anisocytosis Ql (Bld) Present Normal [facility] Comment on above: Order Comment: Speci men Type: BLOOD SPECIMEN Ordering Facility: [facility] Address: [address] [place] [address] Performed By: #### T SCR #### [facility] CLIA [id number] [address] [place] [address] [place] Basophils (Bld) [#/Vol] 0.00 10*3/uL Normal <0.11 [facility] Comment on above: Order Comment: Speci men Type: BLOOD SPECIMEN Ordering Facility: [facility] Address: [address] [place] [address] Performed By: #### T SCR #### [facility] CLIA [id number] [address] [place] [address] [place] Basophils/100 WBC (Bld) 0.0 % Normal [facility] Comment on above: Order Comment: Speci men Type: BLOOD SPECIMEN Ordering Facility: [facility] Address: [address] [place] [address] Performed By: #### T SCR #### [facility] CLIA [id number] [address] [place] [address] [place] Differential cell count method Nom (Bld) Manual Normal [facility] Comment on above: Order Comment: Speci men Type: BLOOD SPECIMEN Ordering Facility: [facility] Address: [address] [place] [address] Performed By: #### T SCR #### [facility] CLIA [id number] [address] [place] [address] [place] Eosinophils (Bld) [#/Vol] 1.06 10*3/uL High <0.46 [facility] Comment on above: Order Comment: Speci men Type: BLOOD SPECIMEN Ordering Facility: [facility] Address: [address] [place] [address] Performed By: #### T SCR #### [facility] CLIA [id number] [address] [place] [address] [place] Eosinophils/100 WBC (Bld) 10.0 % Normal [facility] Comment on above: Order Comment: Speci men Type: BLOOD SPECIMEN Ordering Facility: [facility] Address: [address] [place] [address] Performed By: #### T SCR #### [facility] CLIA [id number] [address] [place] [address] [place] Erythrocyte distribution width (RBC) [Ratio] 20.7 % High 11.5-15.0 [facility] Comment on above: Order Comment: Speci men Type: BLOOD SPECIMEN Ordering Facility: [facility] Address: [address] [place] [address] Performed By: #### T SCR #### [facility] CLIA [id number] [address] [place] [address] [place] Hematocrit (Bld) [Volume fraction] 26.2 % Low 39.0-51.0 [facility] Comment on above: Order Comment: Speci men Type: BLOOD SPECIMEN Ordering Facility: [facility] Address: [address] [place] [address] Performed By: #### T SCR #### [facility] CLIA [id number] [address] [place] [address] [place] Hemoglobin (Bld) [Mass/Vol] 7.4 g/dL Low 13.0-17.0 [facility] Comment on above: Order Comment: Speci men Type: BLOOD SPECIMEN Ordering Facility: [facility] Address: [address] [place] [address] Performed By: #### T SCR #### [facility] CLIA [id number] [address] [place] [address] [place] Lymphocytes (Bld) [#/Vol] 2.64 10*3/uL Normal 1.00-4.00 [facility] Comment on above: Order Comment: Speci men Type: BLOOD SPECIMEN Ordering Facility: [facility] Address: [address] [place] [address] Performed By: #### T SCR #### [facility] CLIA [id number] [address] [place] [address] [place] Lymphocytes/100 WBC (Bld) 25.0 % Normal [facility] Comment on above: Order Comment: Speci men Type: BLOOD SPECIMEN Ordering Facility: [facility] Address: [address] [place] [address] Performed By: #### T SCR #### [facility] CLIA [id number] [address] [place] [address] [place] MCH (RBC) [Entitic mass] 22.7 pg Low 26.0-34.0 [facility] Comment on above: Order Comment: Speci men Type: BLOOD SPECIMEN Ordering Facility: [facility] Address: [address] [place] [address] Performed By: #### T SCR #### [facility] CLIA [id number] [address] [place] [address] [place] MCHC (RBC) [Mass/Vol] 28.2 g/dL Low 30.5-36.0 [facility] Comment on above: Order Comment: Speci men Type: BLOOD SPECIMEN Ordering Facility: [facility] Address: [address] [place] [address] Performed By: #### T SCR #### [facility] CLIA [id number] [address] [place] [address] [place] MCV (RBC) [Entitic vol] 80.4 fL Normal 80.0-100.0 [facility] Comment on above: Order Comment: Speci men Type: BLOOD SPECIMEN Ordering Facility: [facility] Address: [address] [place] [address] Performed By: #### T SCR #### [facility] CLIA [id number] [address] [place] [address] [place] Monocytes (Bld) [#/Vol] 0.63 10*3/uL Normal <0.87 [facility] Comment on above: Order Comment: Speci men Type: BLOOD SPECIMEN Ordering Facility: [facility] Address: [address] [place] [address] Performed By: #### T SCR #### [facility] CLIA [id number] [address] [place] [address] [place] Monocytes/100 WBC (Bld) 6.0 % Normal [facility] Comment on above: Order Comment: Speci men Type: BLOOD SPECIMEN Ordering Facility: [facility] Address: [address] [place] [address] Performed By: #### T SCR #### [facility] CLIA [id number] [address] [place] [address] [place] Neutrophils (Bld) [#/Vol] 6.24 10*3/uL Normal 1.45-7.50 [facility] Comment on above: Order Comment: Speci men Type: BLOOD SPECIMEN Ordering Facility: [facility] Address: [address] [place] [address] Performed By: #### T SCR #### [facility] CLIA [id number] [address] [place] [address] [place] Neutrophils/100 WBC (Bld) 59.0 % Normal [facility] Comment on above: Order Comment: Speci men Type: BLOOD SPECIMEN Ordering Facility: [facility] Address: [address] [place] [address] Performed By: #### T SCR #### [facility] CLIA [id number] [address] [place] [address] [place] Nucleated RBC (Bld) [#/Vol] 10*3/uL Normal <0.01 [facility] Comment on above: Order Comment: Speci men Type: BLOOD SPECIMEN Ordering Facility: [facility] Address: [address] [place] [address] Performed By: #### T SCR #### [facility] CLIA [id number] [address] [place] [address] [place] Nucleated RBC/100 WBC (Bld) [Ratio] 0.0 /100 WBC Normal [facility] Comment on above: Order Comment: Speci men Type: BLOOD SPECIMEN Ordering Facility: [facility] Address: [address] [place] [address] Performed By: #### T SCR #### [facility] CLIA [id number] [address] [place] [address] [place] Ovalocytes LM Ql (Bld) Few Normal [facility] Comment on above: Order Comment: Speci men Type: BLOOD SPECIMEN Ordering Facility: [facility] Address: [address] [place] [address] Performed By: #### T SCR #### [facility] CLIA [id number] [address] [place] [address] [place] Platelet mean volume (Bld) [Entitic vol] 9.8 fL Normal 9.0-12.7 [facility] Comment on above: Order Comment: Speci men Type: BLOOD SPECIMEN Ordering Facility: [facility] Address: [address] [place] [address] Performed By: #### T SCR #### [facility] CLIA [id number] [address] [place] [address] [place] Platelets (Bld) [#/Vol] 429 10*3/uL High 150-400 [facility] Comment on above: Order Comment: Speci men Type: BLOOD SPECIMEN Ordering Facility: [facility] Address: [address] [place] [address] Performed By: #### T SCR #### [facility] CLIA [id number] [address] [place] [address] [place] Platelets Estimate (Bld) [#/Vol] Increased Normal [facility] Comment on above: Order Comment: Speci men Type: BLOOD SPECIMEN Ordering Facility: [facility] Address: [address] [place] [address] Performed By: #### T SCR #### [facility] CLIA [id number] [address] [place] [address] [place] Polychromasia LM Ql (Bld) Slight Normal [facility] Comment on above: Order Comment: Speci men Type: BLOOD SPECIMEN Ordering Facility: [facility] Address: [address] [place] [address] Performed By: #### T SCR #### [facility] CLIA [id number] [address] [place] [address] [place] RBC (Bld) [#/Vol] 3.26 10*6/uL Low 4.20-6.00 [facility] Comment on above: Order Comment: Speci men Type: BLOOD SPECIMEN Ordering Facility: [facility] Address: [address] [place] [address] Performed By: #### T SCR #### [facility] CLIA [id number] [address] [place] [address] [place] RED CELL MORPH Reviewed: see result s of individual morphologies Normal [facility] Comment on above: Order Comment: Speci men Type: BLOOD SPECIMEN Ordering Facility: [facility] Address: [address] [place] [address] Performed By: #### T SCR #### [facility] CLIA [id number] [address] [place] [address] [place] WBC (Bld) [#/Vol] 10.57 10*3/uL Normal 3.70-11.00 [facility] Comment on above: Order Comment: Speci men Type: BLOOD SPECIMEN Ordering Facility: [facility] Address: [address] [place] [address] Performed By: #### T SCR #### [facility] CLIA [id number] [address] [place] [address] [place] WBC Left Shift Ql (Bld) Present Normal [facility] Comment on above: Order Comment: Speci men Type: BLOOD SPECIMEN Ordering Facility: [facility] Address: [address] [place] [address] Performed By: #### T SCR #### [facility] CLIA [id number] [address] [place] [address] [place] CK CREATINE KINASEon 023 CK [Catalytic activity/Vol] 21 U/L Low 51 - 298 U/L [facility] CK SerPl-cCncon 04-11-2023 CK [Catalytic activity/Vol] 21 U/L Low 51-298 [facility] Comment on above: Order Comment: Speci men Type: BLOOD SPECIMEN Ordering Facility: [facility] Address: [address] [place] [address] Performed By: #### 1 988-5 #### [facility] CLIA [id number] [address] [place] [address] [place] Performed By: #### T SCR #### [facility] CLIA [id number] [address] [place] [address] [place] CK TOTAL AND CK-MBon 023 CK [Catalytic activity/Vol] 21 U/L Low 51 - 298 U/L [facility] CK.MB [Mass/Vol] 1.3 ng/mL <7.8 ng/mL [facility] CK.MB [Ratio] [facility] CK.MB [Mass/Vol] 1.3 ng/mL Normal <7.8 [facility] Comment on above: Order Comment: Speci men Type: BLOOD SPECIMEN Ordering Facility: [facility] Address: [address] [place] [address] Performed By: #### T SCR #### [facility] CLIA [id number] [address] [place] [address] [place] CK.MB [Ratio] Normal [facility] Comment on above: Order Comment: Speci men Type: BLOOD SPECIMEN Ordering Facility: [facility] Address: [address] [place] [address] Result Comment: CK M B % not reported with CK <100 U/L. Performed By: #### T SCR #### [facility] CLIA [id number] [address] [place] [address] [place] CRP SerPl-mCncon 04-11-2023 CRP [Mass/Vol] 5.3 mg/dL High <0.9 [facility] Comment on above: Order Comment: Speci men Type: BLOOD SPECIMEN Ordering Facility: [facility] Address: [address] [place] [address] Performed By: #### 1 988-5 #### [facility] [place] [id number] [address] [place] [address] [place] Comprehensive metabolic 2000 panelon 04-11-2023 Albumin [Mass/Vol] 2.8 g/dL Low 3.9 - 4.9 g/dL [facility] ALP [Catalytic activity/Vol] 96 U/L 38 - 113 U/L [facility] ALT [Catalytic activity/Vol] 14 U/L 10 - 54 U/L [facility] Anion gap [Moles/Vol] 13 mmol/L 9 - 18 mmol/L [facility] AST [Catalytic activity/Vol] 20 U/L 14 - 40 U/L [facility] Bilirubin [Mass/Vol] Low 0.2 - 1 .3 mg/dL [facility] Calcium [Mass/Vol] 8.6 mg/dL 8.5 - 10. 2 mg/dL [facility] Chloride [Moles/Vol] 99 mmol/L 97 - 10 5 mmol/L [facility] CO2 [Moles/Vol] 26 mmol/L 22 - 30 mmol/L [facility] Creatinine [Mass/Vol] 0.50 mg/dL Low 0.73 - 1.22 mg/dL [facility] Estimated Glomerular Filtration Rate 120 mL/min/1.73m >=60 mL/min/1.73 m [facility] Glucose [Mass/Vol] 149 mg/dL High 74 - 99 mg/dL [facility] Potassium [Moles/Vol] 4.5 mmol/L 3.7 - 5.1 mmol/L [facility] Protein [Mass/Vol] 6.1 g/dL Low 6.3 - 8.0 g/dL [facility] Sodium [Moles/Vol] 138 mmol/L 136 - 144 mmol/L [facility] Urea nitrogen [Mass/Vol] 6 mg/dL Low 9 - 24 mg/dL [facility] Albumin [Mass/Vol] 2.8 g/dL Low 3.9-4.9 [facility] Comment on above: Order Comment: Speci men Type: BLOOD SPECIMENOrdering Facility: [facility] Address: [address] [place] [address] Performed By: #### 2 4323-8 ####[facility] [id number] [place] [address] [place] ALP [Catalytic activity/Vol] 96 U/L Normal 38-113 [facility] Comment on above: Order Comment: Speci men Type: BLOOD SPECIMENOrdering Facility: [facility] Address: [address] [place] [address] Performed By: #### 2 4323-8 ####[facility] [id number] [place] [address] [place] ALT [Catalytic activity/Vol] 14 U/L Normal 10-54 [facility] Comment on above: Order Comment: Speci men Type: BLOOD SPECIMENOrdering Facility: [facility] Address: [address] [place] [address] Performed By: #### 2 4323-8 ####[facility]IA [id number] [place] [address] [place] Anion gap [Moles/Vol] 13 mmol/L Normal 9-18 [facility] Comment on above: Order Comment: Speci men Type: BLOOD SPECIMENOrdering Facility: [facility] Address: [address] [place] [address] Performed By: #### 2 4323-8 ####[facility] [id number] [place] [address] [place] AST [Catalytic activity/Vol] 20 U/L Normal 14-40 [facility] Comment on above: Order Comment: Speci men Type: BLOOD SPECIMENOrdering Facility: [facility] Address: [address] [place] [address] Performed By: #### 2 4323-8 ####[facility]ORY[facility]IA [id number] [place] [address] [place] Bilirubin [Mass/Vol] mg/dL Low 0.2-1.3 [facility] Comment on above: Order Comment: Speci men Type: BLOOD SPECIMENOrdering Facility: [facility] Address: [address] [place] [address] Performed By: #### 2 4323-8 ####[facility]ORY[facility]IA [id number] [place] [address] [place] Calcium [Mass/Vol] 8.6 mg/dL Normal 8.5-10.2 [facility] Comment on above: Order Comment: Speci men Type: BLOOD SPECIMENOrdering Facility: [facility] Address: [address] [place] [address] Performed By: #### 2 4323-8 ####[facility]ORYCLIA [id number] [place] [address] [place] Chloride [Moles/Vol] 99 mmol/L Normal 97-105 [facility] Comment on above: Order Comment: Speci men Type: BLOOD SPECIMENOrdering Facility: [facility] Address: [address] [place] [address] Performed By: #### 2 4323-8 ####[facility]ORYCLIA [id number] [place] [address] [place] CO2 [Moles/Vol] 26 mmol/L Normal 22-30 [facility] Comment on above: Order Comment: Speci men Type: BLOOD SPECIMENOrdering Facility: [facility] Address: [address] [place] [address] Performed By: #### 2 4323-8 ####[facility]ORYCLIA [id number] [place] [address] [place] Creatinine [Mass/Vol] 0.50 mg/dL Low 0.73-1.22 [facility] Comment on above: Order Comment: Speci men Type: BLOOD SPECIMENOrdering Facility: [facility] Address: [address] [place] [address] Performed By: #### 2 4323-8 ####[facility]ORYCLIA [id number] [place] [address] [place] Creatinine and Glomerular filtration rate.predicted panel (S/P/Bld) 120 mL/min/1.73m??? Normal >=60 [facility] Comment on above: Order Comment: Speci men Type: BLOOD SPECIMENOrdering Facility: [facility] Address: [address] [place] [address] Result Comment: Lola mated Glomerular Filtration Rate (eGFR) is calculated using the 2020 CKD-EPI creatinine equation. This equation utilizes serum creatinine, sex, and age as parameters. The creatinine assay has traceable calibration to isotope dilution-mass spectrometry. Refer to KDIGO guidelines for clinical interpretation. In patients with unstable renal function, e.g. those with acute kidney injury, the eGFR may not accurately reflect actual GFR. Performed By: #### 2 4323-8 ####[facility]ATORYCLIA [id number] [place] [address] [place] Glucose [Mass/Vol] 149 mg/dL High 74-99 [facility] Comment on above: Order Comment: Speci men Type: BLOOD SPECIMENOrdering Facility: [facility] Address: [address] [place] [address] Result Comment: The [place] Diabetes [employer] (ADA) provides guidance for cutoff values for fasting glucose and random glucose. The ADA defines fasting as no caloric intake for at least 8 hours. Fasting plasma glucose results between 100 to 125 mg/dL indicate increased risk for diabetes (prediabetes). Fasting plasma glucose results greater than or equal to 126 mg/dL meet the criteria for diagnosis of diabetes. In the absence of unequivocal hyperglycemia, results should be confirmed by repeat testing. In a patient with classic symptoms of hyperglycemia or hyperglycemic crisis, random plasma glucose results greater than or equal to 200 mg/dL meet the criteria for diagnosis of diabetes. Reference: Standards of Medical Care in Diabetes 2016, [place] [employer]. Diabetes Care. 2016.39(Suppl 1). Performed By: #### 2 4323-8 ####[facility]ORYCLIA [id number] [place] [address] [place] Potassium [Moles/Vol] 4.5 mmol/L Normal 3.7-5.1 [facility] Comment on above: Order Comment: Doroteo zavala Type: BLOOD SPECIMENOrdering Facility: [facility] Address: [address] [place] [address] Performed By: #### 2 4323-8 ####[facility]ORYCLIA [id number] [place] [address] [place] Protein [Mass/Vol] 6.1 g/dL Low 6.3-8.0 [facility] Comment on above: Order Comment: Doroteo zavala Type: BLOOD SPECIMENOrdering Facility: [facility] Address: [address] [place] [address] Performed By: #### 2 4323-8 ####[facility]ATORYCLIA [id number] [place] [address] [place] Sodium [Moles/Vol] 138 mmol/L Normal 136-144 [facility] Comment on above: Order Comment: Doroteo men Type: BLOOD SPECIMENOrdering Facility: [facility] Address: [address] [place] [address] Performed By: #### 2 4323-8 ####[facility]ATORYCLIA [id number] [place] [address] [place] Urea nitrogen [Mass/Vol] 6 mg/dL Low 9-24 [facility] Comment on above: Order Comment: Speci men Type: BLOOD SPECIMENOrdering Facility: [facility] Address: [address] [place] [address] Performed By: #### 2 4323-8 ####[facility]ORYCLIA [id number] [place] [address] [place] C-REACTIVE PROTEIN (CRP)on 06-04-2022 CRP [Mass/Vol] 5.9 mg/dL High <0.9 mg/dL [facility] CBC W Auto Differential pane l (Bld)on 04-04-2023 Anisocytosis Ql (Bld) Present [facility] Basophils (Bld) [#/Vol] 0.00 10*3/uL <0.11 k/uL [facility] Basophils/100 WBC (Bld) 0.0 % [facility] Differential cell count method Nom (Bld) Manual [facility] Eosinophils (Bld) [#/Vol] 0.27 10*3/uL <0.46 k/uL [facility] Eosinophils/100 WBC (Bld) 2.0 % [facility] Erythrocyte distribution width (RBC) [Ratio] 20.2 % High 11.5 - 15.0 % [facility] Hematocrit (Bld) [Volume fraction] 28.0 % Low 39.0 - 51.0 % [facility] Hemoglobin (Bld) [Mass/Vol] 7.9 g/dL Low 13.0 - 17.0 g/dL [facility] Lymphocytes (Bld) [#/Vol] 3.31 10*3/uL 1.00 - 4.00 k/uL [facility] Lymphocytes/100 WBC (Bld) 25.0 % [facility] MCH (RBC) [Entitic mass] 22.3 pg Low 26.0 - 34.0 pg [facility] MCHC (RBC) [Mass/Vol] 28.2 g/dL Low 30.5 - 36.0 g/dL [facility] MCV (RBC) [Entitic vol] 79.1 fL Low 80.0 - 100.0 fL [facility] Desmet % 1.0 % [facility] Monocytes (Bld) [#/Vol] 0.93 10*3/uL High <0.87 k/uL [facility] Monocytes/100 WBC (Bld) 7.0 % [facility] Myelo % 1.0 % [facility] Neutrophils (Bld) [#/Vol] 8.48 10*3/uL High 1.45 - 7.50 k/uL [facility] Neutrophils/100 WBC (Bld) 64.0 % [facility] Nucleated RBC (Bld) [#/Vol] 0.13 10*3/uL High <0.01 k/uL [facility] Nucleated RBC/100 WBC (Bld) [Ratio] 1.0 /100 WBC [facility] Ovalocytes LM Ql (Bld) Few [facility] Platelet mean volume (Bld) [Entitic vol] 9.7 fL 9.0 - 12.7 fL [facility] Platelets (Bld) [#/Vol] 481 10*3/uL High 150 - 400 k/uL [facility] Platelets Estimate (Bld) [#/Vol] Increased [facility] Polychromasia LM Ql (Bld) Slight [facility] RBC (Bld) [#/Vol] 3.54 10*6/uL Low 4.20 - 6.0 0 m/uL [facility] Red Cell Morph Reviewed: see result s of individual morphologies [facility] WBC (Bld) [#/Vol] 13.25 10*3/uL High 3.70 - 11.00 k/uL [facility] WBC Left Shift Ql (Bld) Present [facility] Anisocytosis Ql (Bld) Present Normal [facility] Comment on above: Order Comment: Speci men Type: BLOOD SPECIMEN Ordering Facility: [facility] Address: [address] [place] [address] Performed By: #### 1 988-5 #### [facility] CLIA [id number] [address] [place] [address] [place] Basophils (Bld) [#/Vol] 0.00 10*3/uL Normal <0.11 [facility] Comment on above: Order Comment: Speci men Type: BLOOD SPECIMEN Ordering Facility: [facility] Address: [address] [place] [address] Performed By: #### 1 988-5 #### [facility] CLIA [id number] [address] [place] [address] [place] Basophils/100 WBC (Bld) 0.0 % Normal [facility] Comment on above: Order Comment: Speci men Type: BLOOD SPECIMEN Ordering Facility: [facility] Address: [address] [place] [address] Performed By: #### 1 988-5 #### [facility] CLIA [id number] [address] [place] [address] [place] Differential cell count method Nom (Bld) Manual Normal [facility] Comment on above: Order Comment: Speci men Type: BLOOD SPECIMEN Ordering Facility: [facility] Address: [address] [place] [address] Performed By: #### 1 988-5 #### [facility] CLIA [id number] [address] [place] [address] [place] Eosinophils (Bld) [#/Vol] 0.27 10*3/uL Normal <0.46 [facility] Comment on above: Order Comment: Speci men Type: BLOOD SPECIMEN Ordering Facility: [facility] Address: [address] [place] [address] Performed By: #### 1 988-5 #### [facility] CLIA [id number] [address] [place] [address] [place] Eosinophils/100 WBC (Bld) 2.0 % Normal [facility] Comment on above: Order Comment: Speci men Type: BLOOD SPECIMEN Ordering Facility: [facility] Address: [address] [place] [address] Performed By: #### 1 988-5 #### [facility] CLIA [id number] [address] [place] [address] [place] Erythrocyte distribution width (RBC) [Ratio] 20.2 % High 11.5-15.0 [facility] Comment on above: Order Comment: Speci men Type: BLOOD SPECIMEN Ordering Facility: [facility] Address: [address] [place] [address] Performed By: #### 1 988-5 #### [facility] CLIA [id number] [address] [place] [address] [place] Hematocrit (Bld) [Volume fraction] 28.0 % Low 39.0-51.0 [facility] Comment on above: Order Comment: Speci men Type: BLOOD SPECIMEN Ordering Facility: [facility] Address: [address] [place] [address] Performed By: #### 1 988-5 #### [facility] CLIA [id number] [address] [place] [address] [place] Hemoglobin (Bld) [Mass/Vol] 7.9 g/dL Low 13.0-17.0 [facility] Comment on above: Order Comment: Speci men Type: BLOOD SPECIMEN Ordering Facility: [facility] Address: [address] [place] [address] Performed By: #### 1 988-5 #### [facility] CLIA [id number] [address] [place] [address] [place] Lymphocytes (Bld) [#/Vol] 3.31 10*3/uL Normal 1.00-4.00 [facility] Comment on above: Order Comment: Speci men Type: BLOOD SPECIMEN Ordering Facility: [facility] Address: [address] [place] [address] Performed By: #### 1 988-5 #### [facility] CLIA [id number] [address] [place] [address] [place] Lymphocytes/100 WBC (Bld) 25.0 % Normal [facility] Comment on above: Order Comment: Speci men Type: BLOOD SPECIMEN Ordering Facility: [facility] Address: [address] [place] [address] Performed By: #### 1 988-5 #### [facility] CLIA [id number] [address] [place] [address] [place] MCH (RBC) [Entitic mass] 22.3 pg Low 26.0-34.0 [facility] Comment on above: Order Comment: Speci men Type: BLOOD SPECIMEN Ordering Facility: [facility] Address: [address] [place] [address] Performed By: #### 1 988-5 #### [facility] CLIA [id number] [address] [place] [address] [place] MCHC (RBC) [Mass/Vol] 28.2 g/dL Low 30.5-36.0 [facility] Comment on above: Order Comment: Speci men Type: BLOOD SPECIMEN Ordering Facility: [facility] Address: [address] [place] [address] Performed By: #### 1 988-5 #### [facility] CLIA [id number] [address] [place] [address] [place] MCV (RBC) [Entitic vol] 79.1 fL Low 80.0-100.0 [facility] Comment on above: Order Comment: Speci men Type: BLOOD SPECIMEN Ordering Facility: [facility] Address: [address] [place] [address] Performed By: #### 1 988-5 #### [facility] CLIA [id number] [address] [place] [address] [place] Metamyelocytes/100 WBC (Bld) 1.0 % Normal [facility] Comment on above: Order Comment: Speci men Type: BLOOD SPECIMEN Ordering Facility: [facility] Address: [address] [place] [address] Performed By: #### 1 988-5 #### [facility] CLIA [id number] [address] [place] [address] [place] Monocytes (Bld) [#/Vol] 0.93 10*3/uL High <0.87 [facility] Comment on above: Order Comment: Speci men Type: BLOOD SPECIMEN Ordering Facility: [facility] Address: [address] [place] [address] Performed By: #### 1 988-5 #### [facility] CLIA [id number] [address] [place] [address] [place] Monocytes/100 WBC (Bld) 7.0 % Normal [facility] Comment on above: Order Comment: Speci men Type: BLOOD SPECIMEN Ordering Facility: [facility] Address: [address] [place] [address] Performed By: #### 1 988-5 #### [facility] CLIA [id number] [address] [place] [address] [place] MYELO% 1.0 % Normal [facility] Comment on above: Order Comment: Speci men Type: BLOOD SPECIMEN Ordering Facility: [facility] Address: [address] [place] [address] Performed By: #### 1 988-5 #### [facility] CLIA [id number] [address] [place] [address] [place] Neutrophils (Bld) [#/Vol] 8.48 10*3/uL High 1.45-7.50 [facility] Comment on above: Order Comment: Speci men Type: BLOOD SPECIMEN Ordering Facility: [facility] Address: [address] [place] [address] Performed By: #### 1 988-5 #### [facility] CLIA [id number] [address] [place] [address] [place] Neutrophils/100 WBC (Bld) 64.0 % Normal [facility] Comment on above: Order Comment: Speci men Type: BLOOD SPECIMEN Ordering Facility: [facility] Address: [address] [place] [address] Performed By: #### 1 988-5 #### [facility] CLIA [id number] [address] [place] [address] [place] Nucleated RBC (Bld) [#/Vol] 0.13 10*3/uL High <0.01 [facility] Comment on above: Order Comment: Speci men Type: BLOOD SPECIMEN Ordering Facility: [facility] Address: [address] [place] [address] Performed By: #### 1 988-5 #### [facility] CLIA [id number] [address] [place] [address] [place] Nucleated RBC/100 WBC (Bld) [Ratio] 1.0 /100 WBC Normal [facility] Comment on above: Order Comment: Speci men Type: BLOOD SPECIMEN Ordering Facility: [facility] Address: [address] [place] [address] Performed By: #### 1 988-5 #### [facility] CLIA [id number] [address] [place] [address] [place] Ovalocytes LM Ql (Bld) Few Normal [facility] Comment on above: Order Comment: Speci men Type: BLOOD SPECIMEN Ordering Facility: [facility] Address: [address] [place] [address] Performed By: #### 1 988-5 #### [facility] CLIA [id number] [address] [place] [address] [place] Platelet mean volume (Bld) [Entitic vol] 9.7 fL Normal 9.0-12.7 [facility] Comment on above: Order Comment: Speci men Type: BLOOD SPECIMEN Ordering Facility: [facility] Address: [address] [place] [address] Performed By: #### 1 988-5 #### [facility] CLIA [id number] [address] [place] [address] [place] Platelets (Bld) [#/Vol] 481 10*3/uL High 150-400 [facility] Comment on above: Order Comment: Speci men Type: BLOOD SPECIMEN Ordering Facility: [facility] Address: [address] [place] [address] Performed By: #### 1 988-5 #### [facility] CLIA [id number] [address] [place] [address] [place] Platelets Estimate (Bld) [#/Vol] Increased Normal [facility] Comment on above: Order Comment: Speci men Type: BLOOD SPECIMEN Ordering Facility: [facility] Address: [address] [place] [address] Performed By: #### 1 988-5 #### [facility] CLIA [id number] [address] [place] [address] [place] Polychromasia LM Ql (Bld) Slight Normal [facility] Comment on above: Order Comment: Speci men Type: BLOOD SPECIMEN Ordering Facility: [facility] Address: [address] [place] [address] Performed By: #### 1 988-5 #### [facility] CLIA [id number] [address] [place] [address] [place] RBC (Bld) [#/Vol] 3.54 10*6/uL Low 4.20-6.00 [facility] Comment on above: Order Comment: Speci men Type: BLOOD SPECIMEN Ordering Facility: [facility] Address: [address] [place] [address] Performed By: #### 1 988-5 #### [facility] CLIA [id number] [address] [place] [address] [place] RED CELL MORPH Reviewed: see result s of individual morphologies Normal [facility] Comment on above: Order Comment: Speci men Type: BLOOD SPECIMEN Ordering Facility: [facility] Address: [address] [place] [address] Performed By: #### 1 988-5 #### [facility] CLIA [id number] [address] [place] [address] [place] WBC (Bld) [#/Vol] 13.25 10*3/uL High 3.70-11.00 [facility] Comment on above: Order Comment: Speci men Type: BLOOD SPECIMEN Ordering Facility: [facility] Address: [address] [place] [address] Performed By: #### 1 988-5 #### [facility] CLIA [id number] [address] [place] [address] [place] WBC Left Shift Ql (Bld) Present Normal [facility] Comment on above: Order Comment: Speci men Type: BLOOD SPECIMEN Ordering Facility: [facility] Address: [address] [place] [address] Performed By: #### 1 988-5 #### [facility] CLIA [id number] [address] [place] [address] [place] CK CREATINE KINASEon 023 CK [Catalytic activity/Vol] 104 U/L 51 - 298 U/L [facility] CK SerPl-cCncon 04-04-2023 CK [Catalytic activity/Vol] 104 U/L Normal 51-298 [facility] Comment on above: Order Comment: Speci men Type: BLOOD SPECIMENOrdering Facility: [facility] Address: [address] [place] [address] Performed By: #### 2 157-6 ####[facility] [id number] [place] [address] [place] CRP SerPl-mCncon 04-04-2023 CRP [Mass/Vol] 5.9 mg/dL High <0.9 [facility] Comment on above: Order Comment: Speci men Type: BLOOD SPECIMEN Ordering Facility: [facility] Address: [address] [place] [address] Performed By: #### T SCR #### [facility] CLIA [id number] [address] [place] [address] [place] Comprehensive metabolic 2000 panelon 04-04-2023 Albumin [Mass/Vol] 2.9 g/dL Low 3.9 - 4.9 g/dL [facility] ALP [Catalytic activity/Vol] 134 U/L High 38 - 113 U/L [facility] ALT [Catalytic activity/Vol] 19 U/L 10 - 54 U/L [facility] Anion gap [Moles/Vol] 18 mmol/L 9 - 18 mmol/L [facility] AST [Catalytic activity/Vol] 24 U/L 14 - 40 U/L [facility] Bilirubin [Mass/Vol] 0.2 mg/dL 0.2 - 1 .3 mg/dL [facility] Calcium [Mass/Vol] 8.6 mg/dL 8.5 - 10. 2 mg/dL [facility] Chloride [Moles/Vol] 95 mmol/L Low 97 - 10 5 mmol/L [facility] CO2 [Moles/Vol] 23 mmol/L 22 - 30 mmol/L [facility] Creatinine [Mass/Vol] 0.45 mg/dL Low 0.73 - 1.22 mg/dL [facility] Estimated Glomerular Filtration Rate 124 mL/min/1.73m >=60 mL/min/1.73 m [facility] Glucose [Mass/Vol] 147 mg/dL High 74 - 99 mg/dL [facility] Potassium [Moles/Vol] 4.6 mmol/L 3.7 - 5.1 mmol/L [facility] Protein [Mass/Vol] 6.4 g/dL 6.3 - 8.0 g/dL [facility] Sodium [Moles/Vol] 136 mmol/L 136 - 144 mmol/L [facility] Urea nitrogen [Mass/Vol] 8 mg/dL Low 9 - 24 mg/dL [facility] Albumin [Mass/Vol] 2.9 g/dL Low 3.9-4.9 [facility] Comment on above: Order Comment: Doroteo zavala Type: BLOOD SPECIMENOrdering Facility: [facility] Address: [address] [place] [address] Performed By: #### 2 4323-8 ####[facility] [id number] [place] [address] [place] ALP [Catalytic activity/Vol] 134 U/L High 38-113 [facility] Comment on above: Order Comment: Salinai lucas Type: BLOOD SPECIMENOrdering Facility: [facility] Address: [address] [place] [address] Performed By: #### 2 4323-8 ####[facility] [id number] [place] [address] [place] ALT [Catalytic activity/Vol] 19 U/L Normal 10-54 [facility] Comment on above: Order Comment: Speci men Type: BLOOD SPECIMENOrdering Facility: [facility] Address: [address] [place] [address] Performed By: #### 2 4323-8 ####[facility] [id number] [place] [address] [place] Anion gap [Moles/Vol] 18 mmol/L Normal 9-18 [facility] Comment on above: Order Comment: Speci men Type: BLOOD SPECIMENOrdering Facility: [facility] Address: [address] [place] [address] Performed By: #### 2 4323-8 ####[facility] [id number] [place] [address] [place] AST [Catalytic activity/Vol] 24 U/L Normal 14-40 [facility] Comment on above: Order Comment: Speci men Type: BLOOD SPECIMENOrdering Facility: [facility] Address: [address] [place] [address] Performed By: #### 2 4323-8 ####[facility] [id number] [place] [address] [place] Bilirubin [Mass/Vol] 0.2 mg/dL Normal 0.2-1.3 [facility] Comment on above: Order Comment: Speci men Type: BLOOD SPECIMENOrdering Facility: [facility] Address: [address] [place] [address] Performed By: #### 2 4323-8 ####[facility] [id number] [place] [address] [place] Calcium [Mass/Vol] 8.6 mg/dL Normal 8.5-10.2 [facility] Comment on above: Order Comment: Speci men Type: BLOOD SPECIMENOrdering Facility: [facility] Address: [address] [place] [address] Performed By: #### 2 4323-8 ####[facility] [id number] [place] [address] [place] Chloride [Moles/Vol] 95 mmol/L Low 97-105 [facility] Comment on above: Order Comment: Doroteo zavala Type: BLOOD SPECIMENOrdering Facility: [facility] Address: [address] [place] [address] Performed By: #### 2 4323-8 ####[facility] [id number] [place] [address] [place] CO2 [Moles/Vol] 23 mmol/L Normal 22-30 [facility] Comment on above: Order Comment: Doroteo zavala Type: BLOOD SPECIMENOrdering Facility: [facility] Address: [address] [place] [address] Performed By: #### 2 4323-8 ####[facility] [id number] [place] [address] [place] Creatinine [Mass/Vol] 0.45 mg/dL Low 0.73-1.22 [facility] Comment on above: Order Comment: Doroteo men Type: BLOOD SPECIMENOrdering Facility: [facility] Address: [address] [place] [address] Performed By: #### 2 4323-8 ####[facility] [id number] [place] [address] [place] Creatinine and Glomerular filtration rate.predicted panel (S/P/Bld) 124 mL/min/1.73m??? Normal >=60 [facility] Comment on above: Order Comment: Doroteo zavala Type: BLOOD SPECIMENOrdering Facility: [facility] Address: [address] [place] [address] Result Comment: Lola mated Glomerular Filtration Rate (eGFR) is calculated using the 2020 CKD-EPI creatinine equation. This equation utilizes serum creatinine, sex, and age as parameters. The creatinine assay has traceable calibration to isotope dilution-mass spectrometry. Refer to KDIGO guidelines for clinical interpretation. In patients with unstable renal function, e.g. those with acute kidney injury, the eGFR may not accurately reflect actual GFR. Performed By: #### 2 4323-8 ####[facility] [id number] [place] [address] [place] Glucose [Mass/Vol] 147 mg/dL High 74-99 [facility] Comment on above: Order Comment: Speci men Type: BLOOD SPECIMENOrdering Facility: [facility] Address: [address] [place] [address] Result Comment: The [place] [employer] (ADA) provides guidance for cutoff values for fasting glucose and random glucose. The ADA defines fasting as no caloric intake for at least 8 hours. Fasting plasma glucose results between 100 to 125 mg/dL indicate increased risk for diabetes (prediabetes). Fasting plasma glucose results greater than or equal to 126 mg/dL meet the criteria for diagnosis of diabetes. In the absence of unequivocal hyperglycemia, results should be confirmed by repeat testing. In a patient with classic symptoms of hyperglycemia or hyperglycemic crisis, random plasma glucose results greater than or equal to 200 mg/dL meet the criteria for diagnosis of diabetes. Reference: Standards of Medical Care in Diabetes 2016, [place] [employer]. Diabetes Care. 2016.39(Suppl 1). Performed By: #### 2 4323-8 ####[facility] [id number] [place] [address] [place] Potassium [Moles/Vol] 4.6 mmol/L Normal 3.7-5.1 [facility] Comment on above: Order Comment: Speci men Type: BLOOD SPECIMENOrdering Facility: [facility] Address: [address] [place] [address] Performed By: #### 2 4323-8 ####[facility] [id number] [place] [address] [place] Protein [Mass/Vol] 6.4 g/dL Normal 6.3-8.0 [facility] Comment on above: Order Comment: Speci men Type: BLOOD SPECIMENOrdering Facility: [facility] Address: [address] [place] [address] Performed By: #### 2 4323-8 ####[facility] [id number] [place] [address] [place] Sodium [Moles/Vol] 136 mmol/L Normal 136-144 [facility] Comment on above: Order Comment: Speci men Type: BLOOD SPECIMENOrdering Facility: [facility] Address: [address] [place] [address] Performed By: #### 2 4323-8 ####[facility] [id number] [place] [address] [place] Urea nitrogen [Mass/Vol] 8 mg/dL Low 9-24 [facility] Comment on above: Order Comment: Speci men Type: BLOOD SPECIMENOrdering Facility: [facility] Address: [address] [place] [address] Performed By: #### 2 4323-8 ####[facility] [id number] [place] [address] [place] MAGNESIUM BLDon 04-04-2023 Magnesium [Mass/Vol] 1.7 mg/dL 1.7 - 2 .3 mg/dL [facility] Magnesium SerPl-mCncon 04-04 Magnesium [Mass/Vol] 1.7 mg/dL Normal 1.7-2.3 [facility] Comment on above: Order Comment: Speci men Type: BLOOD SPECIMEN Ordering Facility: [facility] Address: [address] [place] [address] Performed By: #### 1 9123-9 #### [facility] CLIA [id number] [address] [place] [address] [place] CBC W Auto Differential pane l (Bld)on 04-02-2023 Anisocytosis Ql (Bld) Present [facility] Basophils (Bld) [#/Vol] 0.12 10*3/uL High <0.11 k/uL [facility] Basophils/100 WBC (Bld) 1.0 % [facility] Differential cell count method Nom (Bld) Manual [facility] Eosinophils (Bld) [#/Vol] 0.84 10*3/uL High <0.46 k/uL [facility] Eosinophils/100 WBC (Bld) 7.0 % [facility] Erythrocyte distribution width (RBC) [Ratio] 19.9 % High 11.5 - 15.0 % [facility] Hematocrit (Bld) [Volume fraction] 27.3 % Low 39.0 - 51.0 % [facility] Hemoglobin (Bld) [Mass/Vol] 7.7 g/dL Low 13.0 - 17.0 g/dL [facility] Lymphocytes (Bld) [#/Vol] 2.41 10*3/uL 1.00 - 4.00 k/uL [facility] Lymphocytes/100 WBC (Bld) 20.0 % [facility] MCH (RBC) [Entitic mass] 22.4 pg Low 26.0 - 34.0 pg [facility] MCHC (RBC) [Mass/Vol] 28.2 g/dL Low 30.5 - 36.0 g/dL [facility] MCV (RBC) [Entitic vol] 79.6 fL Low 80.0 - 100.0 fL [facility] Desmet % 3.0 % [facility] Monocytes (Bld) [#/Vol] 0.48 10*3/uL <0.87 k/uL [facility] Monocytes/100 WBC (Bld) 4.0 % [facility] Neutrophils (Bld) [#/Vol] 7.84 10*3/uL High 1.45 - 7.50 k/uL [facility] Neutrophils/100 WBC (Bld) 65.0 % [facility] Nucleated RBC (Bld) [#/Vol] <0.01 k/uL [facility] Nucleated RBC/100 WBC (Bld) [Ratio] 0.0 /100 WBC [facility] Ovalocytes LM Ql (Bld) Few Cl [facility] Platelet mean volume (Bld) [Entitic vol] 9.3 fL 9.0 - 12.7 fL [facility] Platelets (Bld) [#/Vol] 433 10*3/uL High 150 - 400 k/uL [facility] Platelets Estimate (Bld) [#/Vol] Increased [facility] Polychromasia LM Ql (Bld) Slight [facility] RBC (Bld) [#/Vol] 3.43 10*6/uL Low 4.20 - 6.0 0 m/uL [facility] Red Cell Morph Reviewed: see result s of individual morphologies [facility] WBC (Bld) [#/Vol] 12.06 10*3/uL High 3.70 - 11.00 k/uL [facility] WBC Left Shift Ql (Bld) Present [facility] Comprehensive metabolic 2000 panelon 04-02-2023 Albumin [Mass/Vol] 2.6 g/dL Low 3.9 - 4.9 g/dL [facility] ALP [Catalytic activity/Vol] 134 U/L High 38 - 113 U/L [facility] ALT [Catalytic activity/Vol] 17 U/L 10 - 54 U/L [facility] Anion gap [Moles/Vol] 11 mmol/L 9 - 18 mmol/L [facility] AST [Catalytic activity/Vol] 19 U/L 14 - 40 U/L [facility] Bilirubin [Mass/Vol] Low 0.2 - 1 .3 mg/dL [facility] Calcium [Mass/Vol] 8.4 mg/dL Low 8.5 - 10. 2 mg/dL [facility] Chloride [Moles/Vol] 100 mmol/L 97 - 10 5 mmol/L [facility] CO2 [Moles/Vol] 27 mmol/L 22 - 30 mmol/L [facility] Creatinine [Mass/Vol] 0.52 mg/dL Low 0.73 - 1.22 mg/dL [facility] Estimated Glomerular Filtration Rate 119 mL/min/1.73m >=60 mL/min/1.73 m [facility] Glucose [Mass/Vol] 137 mg/dL High 74 - 99 mg/dL [facility] Potassium [Moles/Vol] 4.3 mmol/L 3.7 - 5.1 mmol/L [facility] Protein [Mass/Vol] 6.0 g/dL Low 6.3 - 8.0 g/dL [facility] Sodium [Moles/Vol] 138 mmol/L 136 - 144 mmol/L [facility] Urea nitrogen [Mass/Vol] 7 mg/dL Low 9 - 24 mg/dL [facility] CK CREATINE KINASEon 023 CK [Catalytic activity/Vol] 12 U/L Low 51 - 298 U/L [facility] C-REACTIVE PROTEIN (CRP)on 05-28-2022 CRP [Mass/Vol] 10.1 mg/dL High <0.9 mg/dL [facility] CBC W Auto Differential pane l (Bld)on 03-28-2023 Anisocytosis Ql (Bld) Present [facility] Basophils (Bld) [#/Vol] 0.00 10*3/uL <0.11 k/uL [facility] Basophils/100 WBC (Bld) 0.0 % [facility] Differential cell count method Nom (Bld) Manual [facility] Eosinophils (Bld) [#/Vol] 0.31 10*3/uL <0.46 k/uL [facility] Eosinophils/100 WBC (Bld) 2.0 % [facility] Erythrocyte distribution width (RBC) [Ratio] 20.0 % High 11.5 - 15.0 % [facility] Hematocrit (Bld) [Volume fraction] 26.5 % Low 39.0 - 51.0 % [facility] Hemoglobin (Bld) [Mass/Vol] 7.8 g/dL Low 13.0 - 17.0 g/dL [facility] Lymphocytes (Bld) [#/Vol] 4.16 10*3/uL High 1.00 - 4.00 k/uL [facility] Lymphocytes/100 WBC (Bld) 27.0 % [facility] MCH (RBC) [Entitic mass] 22.6 pg Low 26.0 - 34.0 pg [facility] MCHC (RBC) [Mass/Vol] 29.4 g/dL Low 30.5 - 36.0 g/dL [facility] MCV (RBC) [Entitic vol] 76.8 fL Low 80.0 - 100.0 fL [facility] Desmet % 1.0 % [facility] Monocytes (Bld) [#/Vol] 0.77 10*3/uL <0.87 k/uL [facility] Monocytes/100 WBC (Bld) 5.0 % [facility] Neutrophils (Bld) [#/Vol] 10.00 10*3/uL High 1.45 - 7.50 k/uL [facility] Neutrophils/100 WBC (Bld) 65.0 % [facility] Nucleated RBC (Bld) [#/Vol] <0.01 k/uL [facility] Nucleated RBC/100 WBC (Bld) [Ratio] 0.0 /100 WBC [facility] Ovalocytes LM Ql (Bld) Few Cl [facility] Platelet mean volume (Bld) [Entitic vol] 9.3 fL 9.0 - 12.7 fL [facility] Platelets (Bld) [#/Vol] 463 10*3/uL High 150 - 400 k/uL [facility] Platelets Estimate (Bld) [#/Vol] Increased [facility] Polychromasia LM Ql (Bld) Slight [facility] RBC (Bld) [#/Vol] 3.45 10*6/uL Low 4.20 - 6.0 0 m/uL [facility] Red Cell Morph Reviewed: see result s of individual morphologies [facility] WBC (Bld) [#/Vol] 15.39 10*3/uL High 3.70 - 11.00 k/uL [facility] WBC Left Shift Ql (Bld) Present [facility] Comprehensive metabolic 2000 panelon 03-28-2023 Albumin [Mass/Vol] 2.4 g/dL Low 3.9 - 4.9 g/dL [facility] ALP [Catalytic activity/Vol] 139 U/L High 38 - 113 U/L [facility] ALT [Catalytic activity/Vol] 12 U/L 10 - 54 U/L [facility] Anion gap [Moles/Vol] 7 mmol/L Low 9 - 18 mmol/L [facility] AST [Catalytic activity/Vol] 14 U/L 14 - 40 U/L [facility] Bilirubin [Mass/Vol] 0.2 mg/dL 0.2 - 1 .3 mg/dL [facility] Calcium [Mass/Vol] 8.0 mg/dL Low 8.5 - 10. 2 mg/dL [facility] Chloride [Moles/Vol] 99 mmol/L 97 - 10 5 mmol/L [facility] CO2 [Moles/Vol] 27 mmol/L 22 - 30 mmol/L [facility] Creatinine [Mass/Vol] 0.51 mg/dL Low 0.73 - 1.22 mg/dL [facility] Estimated Glomerular Filtration Rate 120 mL/min/1.73m >=60 mL/min/1.73 m [facility] Glucose [Mass/Vol] 114 mg/dL High 74 - 99 mg/dL [facility] Potassium [Moles/Vol] 4.7 mmol/L 3.7 - 5.1 mmol/L [facility] Protein [Mass/Vol] 5.2 g/dL Low 6.3 - 8.0 g/dL [facility] Sodium [Moles/Vol] 133 mmol/L Low 136 - 144 mmol/L [facility] Urea nitrogen [Mass/Vol] 14 mg/dL 9 - 24 mg/dL [facility] MAGNESIUM BLDon 03-28-2023 Magnesium [Mass/Vol] 1.4 mg/dL Low 1.7 - 2 .3 mg/dL [facility] PHOSPHORUS INORGANICon 03-28 Phosphate [Mass/Vol] 3.6 mg/dL 2.7 - 4 .8 mg/dL [facility] Bacteria Ur Culton 3 Bacteria identified Cx Nom (U) ORGANISM ID: 1 50,000-<100,000 CFU/ml Brandon albicans No susceptibility testing done. Normal [facility] Comment on above: Performed By: #### 6 30-4 ####[facility] [id number] [place] [address] [place] Bacteria Wnd Culton 03-25-20 23 Bacteria identified Cx Nom (Wound) Abnormal [facility] Comment on above: Performed By: #### 6 462-6 ####[facility] [id number] [place] [address] [place] Basic metabolic 2000 panelon 03-25-2023 Anion gap [Moles/Vol] 12 mmol/L 9 - 18 mmol/L [facility] Calcium [Mass/Vol] 8.2 mg/dL Low 8.5 - 10. 2 mg/dL [facility] Chloride [Moles/Vol] 100 mmol/L 97 - 10 5 mmol/L [facility] CO2 [Moles/Vol] 24 mmol/L 22 - 30 mmol/L [facility] Creatinine [Mass/Vol] 0.49 mg/dL Low 0.73 - 1.22 mg/dL [facility] Estimated Glomerular Filtration Rate 121 mL/min/1.73m >=60 mL/min/1.73 m [facility] Glucose [Mass/Vol] 153 mg/dL High 74 - 99 mg/dL [facility] Potassium [Moles/Vol] 5.2 mmol/L High 3.7 - 5.1 mmol/L [facility] Sodium [Moles/Vol] 136 mmol/L 136 - 144 mmol/L [facility] Urea nitrogen [Mass/Vol] 20 mg/dL 9 - 24 mg/dL [facility] CBC W Auto Differential pane l (Bld)on 03-25-2023 Basophils (Bld) [#/Vol] 0.04 10*3/uL <0.11 k/uL [facility] Basophils/100 WBC (Bld) 0.4 % [facility] Differential cell count method Nom (Bld) Auto [facility] Eosinophils (Bld) [#/Vol] 0.19 10*3/uL <0.46 k/uL [facility] Eosinophils/100 WBC (Bld) 1.7 % [facility] Erythrocyte distribution width (RBC) [Ratio] 19.5 % High 11.5 - 15.0 % [facility] Hematocrit (Bld) [Volume fraction] 27.0 % Low 39.0 - 51.0 % [facility] Hemoglobin (Bld) [Mass/Vol] 8.0 g/dL Low 13.0 - 17.0 g/dL [facility] Immature granulocytes (Bld) [#/Vol] 0.14 10*3/uL High <0.10 k/uL [facility] Immature granulocytes/100 WBC (Bld) 1.3 % [facility] Lymphocytes (Bld) [#/Vol] 2.29 10*3/uL 1.00 - 4.00 k/uL [facility] Lymphocytes/100 WBC (Bld) 20.5 % [facility] MCH (RBC) [Entitic mass] 23.1 pg Low 26.0 - 34.0 pg [facility] MCHC (RBC) [Mass/Vol] 29.6 g/dL Low 30.5 - 36.0 g/dL [facility] MCV (RBC) [Entitic vol] 78.0 fL Low 80.0 - 100.0 fL [facility] Monocytes (Bld) [#/Vol] 1.29 10*3/uL High <0.87 k/uL [facility] Monocytes/100 WBC (Bld) 11.5 % [facility] Neutrophils (Bld) [#/Vol] 7.22 10*3/uL 1.45 - 7.50 k/uL [facility] Neutrophils/100 WBC (Bld) 64.6 % [facility] Nucleated RBC (Bld) [#/Vol] <0.01 k/uL [facility] Nucleated RBC/100 WBC (Bld) [Ratio] 0.0 /100 WBC [facility] Platelet mean volume (Bld) [Entitic vol] 9.5 fL 9.0 - 12.7 fL [facility] Platelets (Bld) [#/Vol] 481 10*3/uL High 150 - 400 k/uL [facility] RBC (Bld) [#/Vol] 3.46 10*6/uL Low 4.20 - 6.0 0 m/uL [facility] WBC (Bld) [#/Vol] 11.17 10*3/uL High 3.70 - 11.00 k/uL [facility] SARS-CoV-2 RNA Resp Ql ABIGAIL+p robeon 03-25-2023 SARS-CoV-2 (COVID-19) RNA ABIGAIL+probe Ql (Resp) COVID 19 RESULT: Not detected The method used is RT-PCR or an equivalent NAAT method. Reference Range (the expected result in uninfected individuals): Not detected Normal [facility] Comment on above: Performed By: #### 9 4500-6 ####[facility] LABCLIA [id number] [place] [address] [place] URINALYSIS, DIPSTICK ONLYon 03-25-2023 Bilirubin Ql (U) Negative Normal Negative [facility] Comment on above: Order Comment: Speci men Type: URINE SPECIMENOrdering Facility: [facility] Address: [address] [place] [address] Performed By: #### U A ####[facility] LABORATORYCLIA [id number] [place] [address] [place] Clarity (Unsp spec) Turbid Abnormal Clear [facility] Comment on above: Order Comment: Speci men Type: URINE SPECIMENOrdering Facility: [facility] Address: [address] [place] [address] Performed By: #### U A ####[facility] LABORATORYCLIA [id number] [place] [address] [place] Color (U) Light [place] Abnormal Yellow [facility] Comment on above: Order Comment: Speci men Type: URINE SPECIMENOrdering Facility: [facility] Address: [address] [place], [place] [id number] Performed By: #### U A ####[facility]ORY[facility] [id number] [place] [address] [place] Glucose Test strip (U) [Mass/Vol] Negative Normal Trace, Negative [facility] Comment on above: Order Comment: Speci men Type: URINE SPECIMENOrdering Facility: [facility] Address: [address] [place] [address] Performed By: #### U A ####[facility]ORYCLIA [id number] [place] [address] [place] Hemoglobin Ql (U) 3+ Abnormal Negative, Trace [facility] Comment on above: Order Comment: Speci men Type: URINE SPECIMENOrdering Facility: [facility] Address: [address] [place] [address] Performed By: #### U A ####[facility]ATORYCLIA [id number] [place] [address] [place] Ketones Ql (U) Negative Normal Negative, Trace [facility] Comment on above: Order Comment: Speci men Type: URINE SPECIMENOrdering Facility: [facility] Address: [address] [place] [address] Performed By: #### U A ####[facility]ATORYCLIA [id number] [place] [address] [place] Leukocyte esterase Test strip Ql (U) 500 Ronda/uL Abnormal Negative, 25 Ronda/uL [facility] Comment on above: Order Comment: Speci men Type: URINE SPECIMENOrdering Facility: [facility] Address: [address] [place] [address] Performed By: #### U A ####[facility]ATORYCLIA [id number] [place] [address] [place] Nitrite Ql (U) Negative Normal Negative [facility] Comment on above: Order Comment: Speci men Type: URINE SPECIMENOrdering Facility: [facility] Address: [address] [place] [address] Performed By: #### U A ####[facility] LABORATORYCLIA [id number] [place] [address] [place] pH (U) 6.0 [pH] Normal 5.0-8.0 [facility] Comment on above: Order Comment: Speci men Type: URINE SPECIMENOrdering Facility: [facility] Address: [address] [place] [address] Performed By: #### U A ####[facility] LABORATORYIA [id number] [place] [address] [place] Protein (U) [Mass/Vol] 1+ Abnormal Trace , Negative [facility] Comment on above: Order Comment: Speci men Type: URINE SPECIMENOrdering Facility: [facility] Address: [address] [place] [address] Performed By: #### U A ####[facility] LABORATORYIA [id number] [place] [address] [place] Specific gravity (U) [Rel density] 1.012 Normal 1.005-1.030 [facility] Comment on above: Order Comment: Speci men Type: URINE SPECIMENOrdering Facility: [facility] Address: [address] [place] [address] Performed By: #### U A ####[facility] LABORATORYIA [id number] [place] [address] [place] Urobilinogen Ql (U) Negative Normal Negative [facility] Comment on above: Order Comment: Speci men Type: URINE SPECIMENOrdering Facility: [facility] Address: [address] [place] [address] Performed By: #### U A ####[facility] LABORATORYCLIA [id number] [place] [address] [place] CBC W Auto Differential pane l (Bld)on 03-23-2023 Anisocytosis Ql (Bld) Present [facility] Basophils (Bld) [#/Vol] 0.12 10*3/uL High <0.11 k/uL [facility] Basophils/100 WBC (Bld) 1.0 % [facility] Differential cell count method Nom (Bld) Manual [facility] Eosinophils (Bld) [#/Vol] 0.24 10*3/uL <0.46 k/uL [facility] Eosinophils/100 WBC (Bld) 2.0 % [facility] Erythrocyte distribution width (RBC) [Ratio] 19.2 % High 11.5 - 15.0 % [facility] Hematocrit (Bld) [Volume fraction] 30.0 % Low 39.0 - 51.0 % [facility] Hemoglobin (Bld) [Mass/Vol] 8.8 g/dL Low 13.0 - 17.0 g/dL [facility] Lymphocytes (Bld) [#/Vol] 3.78 10*3/uL 1.00 - 4.00 k/uL [facility] Lymphocytes/100 WBC (Bld) 31.0 % [facility] MCH (RBC) [Entitic mass] 22.7 pg Low 26.0 - 34.0 pg [facility] MCHC (RBC) [Mass/Vol] 29.3 g/dL Low 30.5 - 36.0 g/dL [facility] MCV (RBC) [Entitic vol] 77.3 fL Low 80.0 - 100.0 fL [facility] Monocytes (Bld) [#/Vol] 1.18 10*3/uL High <0.87 k/uL [facility] Monocytes/100 WBC (Bld) 10.0 % [facility] Myelo % 1.0 % [facility] Neutrophils (Bld) [#/Vol] 6.38 10*3/uL 1.45 - 7.50 k/uL [facility] Neutrophils/100 WBC (Bld) 54.0 % [facility] Nucleated RBC (Bld) [#/Vol] <0.01 k/uL [facility] Nucleated RBC/100 WBC (Bld) [Ratio] 0.0 /100 WBC [facility] Ovalocytes LM Ql (Bld) Few Cl [facility] Platelet clump LM Ql (Bld) Present [facility] Platelet mean volume (Bld) [Entitic vol] 9.4 fL 9.0 - 12.7 fL [facility] Platelets (Bld) [#/Vol] 465 10*3/uL High 150 - 400 k/uL [facility] Platelets Estimate (Bld) [#/Vol] Increased [facility] Polychromasia LM Ql (Bld) Slight [facility] RBC (Bld) [#/Vol] 3.88 10*6/uL Low 4.20 - 6.0 0 m/uL [facility] RBC Fragments Few Abnormal None Seen [facility] Red Cell Morph Reviewed: see result s of individual morphologies [facility] Variant lymphocytes/100 WBC (Bld) 1.0 % [facility] WBC (Bld) [#/Vol] 11.82 10*3/uL High 3.70 - 11.00 k/uL [facility] WBC Left Shift Ql (Bld) Present [facility] BILIRUBIN DIRECT BLDon 03-21 Bilirubin.conjugated [Mass/Vol] <0.2 mg/dL [facility] C-REACTIVE PROTEIN (CRP)on 1 05-21-2022 CRP [Mass/Vol] 8.0 mg/dL High <0.9 mg/dL [facility] CBC W Auto Differential pane l (Bld)on 03-21-2023 Basophils (Bld) [#/Vol] 0.08 10*3/uL <0.11 k/uL [facility] Basophils/100 WBC (Bld) 0.9 % [facility] Differential cell count method Nom (Bld) Auto [facility] Eosinophils (Bld) [#/Vol] 0.49 10*3/uL High <0.46 k/uL [facility] Eosinophils/100 WBC (Bld) 5.3 % [facility] Erythrocyte distribution width (RBC) [Ratio] 19.6 % High 11.5 - 15.0 % [facility] Hematocrit (Bld) [Volume fraction] 31.0 % Low 39.0 - 51.0 % [facility] Hemoglobin (Bld) [Mass/Vol] 9.0 g/dL Low 13.0 - 17.0 g/dL [facility] Immature granulocytes (Bld) [#/Vol] 0.08 10*3/uL <0.10 k/uL [facility] Immature granulocytes/100 WBC (Bld) 0.9 % [facility] Lymphocytes (Bld) [#/Vol] 3.05 10*3/uL 1.00 - 4.00 k/uL [facility] Lymphocytes/100 WBC (Bld) 33.0 % [facility] MCH (RBC) [Entitic mass] 22.8 pg Low 26.0 - 34.0 pg [facility] MCHC (RBC) [Mass/Vol] 29.0 g/dL Low 30.5 - 36.0 g/dL [facility] MCV (RBC) [Entitic vol] 78.7 fL Low 80.0 - 100.0 fL [facility] Monocytes (Bld) [#/Vol] 1.33 10*3/uL High <0.87 k/uL [facility] Monocytes/100 WBC (Bld) 14.4 % [facility] Neutrophils (Bld) [#/Vol] 4.21 10*3/uL 1.45 - 7.50 k/uL [facility] Neutrophils/100 WBC (Bld) 45.5 % [facility] Nucleated RBC (Bld) [#/Vol] <0.01 k/uL [facility] Nucleated RBC/100 WBC (Bld) [Ratio] 0.0 /100 WBC [facility] Platelet mean volume (Bld) [Entitic vol] 9.9 fL 9.0 - 12.7 fL [facility] Platelets (Bld) [#/Vol] 382 10*3/uL 150 - 400 k/uL [facility] RBC (Bld) [#/Vol] 3.94 10*6/uL Low 4.20 - 6.0 0 m/uL [facility] WBC (Bld) [#/Vol] 9.24 10*3/uL 3.70 - 11.00 k/uL [facility] Comprehensive metabolic 2000 panelon 03-21-2023 Albumin [Mass/Vol] 2.4 g/dL Low 3.9 - 4.9 g/dL [facility] ALP [Catalytic activity/Vol] 162 U/L High 38 - 113 U/L [facility] ALT [Catalytic activity/Vol] 18 U/L 10 - 54 U/L [facility] Anion gap [Moles/Vol] 12 mmol/L 9 - 18 mmol/L [facility] AST [Catalytic activity/Vol] 33 U/L 14 - 40 U/L [facility] Bilirubin [Mass/Vol] 0.3 mg/dL 0.2 - 1 .3 mg/dL [facility] Calcium [Mass/Vol] 8.1 mg/dL Low 8.5 - 10. 2 mg/dL [facility] Chloride [Moles/Vol] 98 mmol/L 97 - 10 5 mmol/L [facility] CO2 [Moles/Vol] 24 mmol/L 22 - 30 mmol/L [facility] Creatinine [Mass/Vol] 0.49 mg/dL Low 0.73 - 1.22 mg/dL [facility] Estimated Glomerular Filtration Rate 121 mL/min/1.73m >=60 mL/min/1.73 m [facility] Glucose [Mass/Vol] 71 mg/dL Low 74 - 99 mg/dL [facility] Potassium [Moles/Vol] 4.7 mmol/L 3.7 - 5.1 mmol/L [facility] Protein [Mass/Vol] 5.8 g/dL Low 6.3 - 8.0 g/dL [facility] Sodium [Moles/Vol] 134 mmol/L Low 136 - 144 mmol/L [facility] Urea nitrogen [Mass/Vol] 12 mg/dL 9 - 24 mg/dL [facility] Basic metabolic 2000 panelon 03-17-2023 Anion gap [Moles/Vol] 12 mmol/L 9 - 18 mmol/L [facility] Calcium [Mass/Vol] 7.8 mg/dL Low 8.5 - 10. 2 mg/dL [facility] Chloride [Moles/Vol] 98 mmol/L 97 - 10 5 mmol/L [facility] CO2 [Moles/Vol] 23 mmol/L 22 - 30 mmol/L [facility] Creatinine [Mass/Vol] 0.45 mg/dL Low 0.73 - 1.22 mg/dL [facility] Estimated Glomerular Filtration Rate 124 mL/min/1.73m >=60 mL/min/1.73 m [facility] Glucose [Mass/Vol] 131 mg/dL High 74 - 99 mg/dL [facility] Potassium [Moles/Vol] 4.3 mmol/L 3.7 - 5.1 mmol/L [facility] Sodium [Moles/Vol] 133 mmol/L Low 136 - 144 mmol/L [facility] Urea nitrogen [Mass/Vol] 15 mg/dL 9 - 24 mg/dL [facility] CBC W Auto Differential pane l (Bld)on 03-17-2023 Basophils (Bld) [#/Vol] 0.07 10*3/uL <0.11 k/uL [facility] Basophils/100 WBC (Bld) 0.6 % [facility] Differential cell count method Nom (Bld) Auto [facility] Eosinophils (Bld) [#/Vol] 0.43 10*3/uL <0.46 k/uL [facility] Eosinophils/100 WBC (Bld) 3.6 % [facility] Erythrocyte distribution width (RBC) [Ratio] 19.9 % High 11.5 - 15.0 % [facility] Hematocrit (Bld) [Volume fraction] 29.0 % Low 39.0 - 51.0 % [facility] Hemoglobin (Bld) [Mass/Vol] 8.7 g/dL Low 13.0 - 17.0 g/dL [facility] Immature granulocytes (Bld) [#/Vol] 0.06 10*3/uL <0.10 k/uL [facility] Immature granulocytes/100 WBC (Bld) 0.5 % [facility] Lymphocytes (Bld) [#/Vol] 2.78 10*3/uL 1.00 - 4.00 k/uL [facility] Lymphocytes/100 WBC (Bld) 23.5 % [facility] MCH (RBC) [Entitic mass] 22.9 pg Low 26.0 - 34.0 pg [facility] MCHC (RBC) [Mass/Vol] 30.0 g/dL Low 30.5 - 36.0 g/dL [facility] MCV (RBC) [Entitic vol] 76.3 fL Low 80.0 - 100.0 fL [facility] Monocytes (Bld) [#/Vol] 1.57 10*3/uL High <0.87 k/uL [facility] Monocytes/100 WBC (Bld) 13.2 % [facility] Neutrophils (Bld) [#/Vol] 6.94 10*3/uL 1.45 - 7.50 k/uL [facility] Neutrophils/100 WBC (Bld) 58.6 % [facility] Nucleated RBC (Bld) [#/Vol] <0.01 k/uL [facility] Nucleated RBC/100 WBC (Bld) [Ratio] 0.0 /100 WBC [facility] Platelet mean volume (Bld) [Entitic vol] 9.4 fL 9.0 - 12.7 fL [facility] Platelets (Bld) [#/Vol] 371 10*3/uL 150 - 400 k/uL [facility] RBC (Bld) [#/Vol] 3.80 10*6/uL Low 4.20 - 6.0 0 m/uL [facility] WBC (Bld) [#/Vol] 11.85 10*3/uL High 3.70 - 11.00 k/uL [facility] Bacteria Ur Culton 3 Bacteria identified Cx Nom (U) ORGANISM ID: 1 10,000 -<50,000 CFU/ml Mixed microbiota Insignificant colony count. No further workup. Normal [facility] Comment on above: Performed By: #### 6 30-4 ####[facility] LABCLIA [id number] [address] [id number] [address] [place] Urinalysis complete panel (U )on 03-16-2023 Bacteria LM.HPF (Urine sed) [#/Area] Rare Abnormal None Seen [facility] Comment on above: Order Comment: Speci men Type: URINE SPECIMENOrdering Facility: [facility] Address: [address] [place] [address] Performed By: #### 2 4356-8 ####[facility]ORATORYCLIA [id number] [place] [address] [place] Bilirubin Ql (U) Negative Normal Negative [facility] Comment on above: Order Comment: Speci men Type: URINE SPECIMENOrdering Facility: [facility] Address: [address] [place] [address] Performed By: #### 2 4356-8 ####[facility]ORATORYCLIA [id number] [place] [address] [place] Clarity (Unsp spec) Turbid Abnormal Clear [facility] Comment on above: Order Comment: Speci men Type: URINE SPECIMENOrdering Facility: [facility] Address: [address] [place] [address] Performed By: #### 2 4356-8 ####[facility]ORATORYCLIA [id number] [place] [address] [place] Color (U) Brown Abnormal Yellow [facility] Comment on above: Order Comment: Speci men Type: URINE SPECIMENOrdering Facility: [facility] Address: [address] [place] [address] Performed By: #### 2 4356-8 ####[facility]ORYCLIA [id number] [place] [address] [place] Glucose Test strip (U) [Mass/Vol] Negative Normal Trace, Negative [facility] Comment on above: Order Comment: Speci men Type: URINE SPECIMENOrdering Facility: [facility] Address: [address] [place] [address] Performed By: #### 2 4356-8 ####[facility]ATORYCLIA [id number] [place] [address] [place] Hemoglobin Ql (U) 3+ Abnormal Negative, Trace [facility] Comment on above: Order Comment: Speci men Type: URINE SPECIMENOrdering Facility: [facility] Address: [address] [place] [address] Performed By: #### 2 4356-8 ####[facility]ATORYCLIA [id number] [place] [address] [place] Hyaline casts (Urine sed) [#/Area] 1-3 /LPF Abnormal 0 /LPF [facility] Comment on above: Order Comment: Speci men Type: URINE SPECIMENOrdering Facility: [facility] Address: [address] [place] [address] Performed By: #### 2 4356-8 ####[facility]ATORYCLIA [id number] [place] [address] [place] Ketones Ql (U) Negative Normal Negative, Trace [facility] Comment on above: Order Comment: Speci men Type: URINE SPECIMENOrdering Facility: [facility] Address: [address] [place] [address] Performed By: #### 2 4356-8 ####[facility]ORYCLIA [id number] [place] [address] [place] Leukocyte esterase Test strip Ql (U) 250 Ronda/uL Abnormal Negative, 25 Ronda/uL [facility] Comment on above: Order Comment: Speci men Type: URINE SPECIMENOrdering Facility: [facility] Address: [address] [place] [address] Performed By: #### 2 4356-8 ####[facility]ATORYCLIA [id number] [place] [address] [place] Nitrite Ql (U) Negative Normal Negative [facility] Comment on above: Order Comment: Speci men Type: URINE SPECIMENOrdering Facility: [facility] Address: [address] [place] [address] Performed By: #### 2 4356-8 ####[facility]ATORYCLIA [id number] [place] [address] [place] pH (U) 6.0 [pH] Normal 5.0-8.0 [facility] Comment on above: Order Comment: Speci men Type: URINE SPECIMENOrdering Facility: [facility] Address: [address] [place] [address] Performed By: #### 2 4356-8 ####[facility]ORATORYCLIA [id number] [place] [address] [place] Protein (U) [Mass/Vol] 1+ Abnormal Trace , Negative [facility] Comment on above: Order Comment: Speci men Type: URINE SPECIMENOrdering Facility: [facility] Address: [address] [place] [address] Performed By: #### 2 4356-8 ####[facility]ORATORYCLIA [id number] [place] [address] [place] RBC LM.HPF (Urine sed) [#/Area] /[HPF] Abnormal 0-3 /HPF [facility] Comment on above: Order Comment: Speci men Type: URINE SPECIMENOrdering Facility: [facility] Address: [address] [place] [address] Performed By: #### 2 4356-8 ####[facility]ATORYCLIA [id number] [place] [address] [place] Specific gravity (U) [Rel density] 1.009 Normal 1.005-1.030 [facility] Comment on above: Order Comment: Speci men Type: URINE SPECIMENOrdering Facility: [facility] Address: [address] [place] [address] Performed By: #### 2 4356-8 ####[facility] LABORATORYCLIA [id number] [place] [address] [place] Urobilinogen Ql (U) Negative Normal Negative [facility] Comment on above: Order Comment: Speci men Type: URINE SPECIMENOrdering Facility: [facility] Address: [address] [place] [address] Performed By: #### 2 4356-8 ####[facility] LABORATORYCLIA [id number] [place] [address] [place] WBC LM.HPF (Urine sed) [#/Area] 11-25 /HPF Abnormal 0-5 /HPF [facility] Comment on above: Order Comment: Speci men Type: URINE SPECIMENOrdering Facility: [facility] Address: [address] [place] [address] Performed By: #### 2 4356-8 ####[facility] LABORATORYCLIA [id number] [place] [address] [place] Basic metabolic 2000 panelon 03-14-2023 Anion gap [Moles/Vol] 13 mmol/L 9 - 18 mmol/L [facility] Calcium [Mass/Vol] 8.4 mg/dL Low 8.5 - 10. 2 mg/dL [facility] Chloride [Moles/Vol] 101 mmol/L 97 - 10 5 mmol/L [facility] CO2 [Moles/Vol] 23 mmol/L 22 - 30 mmol/L [facility] Creatinine [Mass/Vol] 0.61 mg/dL Low 0.73 - 1.22 mg/dL [facility] Estimated Glomerular Filtration Rate 113 mL/min/1.73m >=60 mL/min/1.73 m [facility] Glucose [Mass/Vol] 126 mg/dL High 74 - 99 mg/dL [facility] Potassium [Moles/Vol] 4.4 mmol/L 3.7 - 5.1 mmol/L [facility] Sodium [Moles/Vol] 137 mmol/L 136 - 144 mmol/L [facility] Urea nitrogen [Mass/Vol] 14 mg/dL 9 - 24 mg/dL [facility] C-REACTIVE PROTEIN (CRP)on 1 CRP [Mass/Vol] 9.4 mg/dL High <0.9 mg/dL [facility] CBC W Auto Differential pane l (Bld)on 03-14-2023 Basophils (Bld) [#/Vol] 0.09 10*3/uL <0.11 k/uL [facility] Basophils/100 WBC (Bld) 0.7 % [facility] Differential cell count method Nom (Bld) Auto [facility] Eosinophils (Bld) [#/Vol] 0.42 10*3/uL <0.46 k/uL [facility] Eosinophils/100 WBC (Bld) 3.5 % [facility] Erythrocyte distribution width (RBC) [Ratio] 19.8 % High 11.5 - 15.0 % [facility] Hematocrit (Bld) [Volume fraction] 32.9 % Low 39.0 - 51.0 % [facility] Hemoglobin (Bld) [Mass/Vol] 9.7 g/dL Low 13.0 - 17.0 g/dL [facility] Immature granulocytes (Bld) [#/Vol] 0.09 10*3/uL <0.10 k/uL [facility] Immature granulocytes/100 WBC (Bld) 0.7 % [facility] Lymphocytes (Bld) [#/Vol] 3.31 10*3/uL 1.00 - 4.00 k/uL [facility] Lymphocytes/100 WBC (Bld) 27.2 % [facility] MCH (RBC) [Entitic mass] 22.8 pg Low 26.0 - 34.0 pg [facility] MCHC (RBC) [Mass/Vol] 29.5 g/dL Low 30.5 - 36.0 g/dL [facility] MCV (RBC) [Entitic vol] 77.4 fL Low 80.0 - 100.0 fL [facility] Monocytes (Bld) [#/Vol] 1.38 10*3/uL High <0.87 k/uL [facility] Monocytes/100 WBC (Bld) 11.3 % [facility] Neutrophils (Bld) [#/Vol] 6.88 10*3/uL 1.45 - 7.50 k/uL [facility] Neutrophils/100 WBC (Bld) 56.6 % [facility] Nucleated RBC (Bld) [#/Vol] <0.01 k/uL [facility] Nucleated RBC/100 WBC (Bld) [Ratio] 0.0 /100 WBC [facility] Platelet mean volume (Bld) [Entitic vol] 9.5 fL 9.0 - 12.7 fL [facility] Platelets (Bld) [#/Vol] 431 10*3/uL High 150 - 400 k/uL [facility] RBC (Bld) [#/Vol] 4.25 10*6/uL 4.20 - 6.0 0 m/uL [facility] WBC (Bld) [#/Vol] 12.17 10*3/uL High 3.70 - 11.00 k/uL [facility] Hepatic function 2000 panelo n 03-14-2023 Albumin [Mass/Vol] 2.9 g/dL Low 3.9 - 4.9 g/dL [facility] ALP [Catalytic activity/Vol] 159 U/L High 38 - 113 U/L [facility] ALT [Catalytic activity/Vol] 12 U/L 10 - 54 U/L [facility] AST [Catalytic activity/Vol] 17 U/L 14 - 40 U/L [facility] Bilirubin [Mass/Vol] 0.3 mg/dL 0.2 - 1 .3 mg/dL [facility] Bilirubin.conjugated [Mass/Vol] <0.2 mg/dL [facility] Protein [Mass/Vol] 6.2 g/dL Low 6.3 - 8.0 g/dL [facility] Basic metabolic 2000 panelon 03-12-2023 Anion gap [Moles/Vol] 13 mmol/L 9 - 18 mmol/L [facility] Calcium [Mass/Vol] 8.3 mg/dL Low 8.5 - 10. 2 mg/dL [facility] Chloride [Moles/Vol] 98 mmol/L 97 - 10 5 mmol/L [facility] CO2 [Moles/Vol] 22 mmol/L 22 - 30 mmol/L [facility] Creatinine [Mass/Vol] 0.46 mg/dL Low 0.73 - 1.22 mg/dL [facility] Estimated Glomerular Filtration Rate 124 mL/min/1.73m >=60 mL/min/1.73 m [facility] Glucose [Mass/Vol] 154 mg/dL High 74 - 99 mg/dL [facility] Potassium [Moles/Vol] 4.3 mmol/L 3.7 - 5.1 mmol/L [facility] Sodium [Moles/Vol] 133 mmol/L Low 136 - 144 mmol/L [facility] Urea nitrogen [Mass/Vol] 12 mg/dL 9 - 24 mg/dL [facility] CBC W Auto Differential pane l (Bld)on 03-12-2023 Basophils (Bld) [#/Vol] 0.09 10*3/uL <0.11 k/uL [facility] Basophils/100 WBC (Bld) 0.7 % [facility] Differential cell count method Nom (Bld) Auto [facility] Eosinophils (Bld) [#/Vol] 0.45 10*3/uL <0.46 k/uL [facility] Eosinophils/100 WBC (Bld) 3.3 % [facility] Erythrocyte distribution width (RBC) [Ratio] 19.9 % High 11.5 - 15.0 % [facility] Hematocrit (Bld) [Volume fraction] 31.1 % Low 39.0 - 51.0 % [facility] Hemoglobin (Bld) [Mass/Vol] 9.4 g/dL Low 13.0 - 17.0 g/dL [facility] Immature granulocytes (Bld) [#/Vol] 0.10 10*3/uL High <0.10 k/uL [facility] Immature granulocytes/100 WBC (Bld) 0.7 % [facility] Lymphocytes (Bld) [#/Vol] 3.19 10*3/uL 1.00 - 4.00 k/uL [facility] Lymphocytes/100 WBC (Bld) 23.2 % [facility] MCH (RBC) [Entitic mass] 23.2 pg Low 26.0 - 34.0 pg [facility] MCHC (RBC) [Mass/Vol] 30.2 g/dL Low 30.5 - 36.0 g/dL [facility] MCV (RBC) [Entitic vol] 76.6 fL Low 80.0 - 100.0 fL [facility] Monocytes (Bld) [#/Vol] 1.33 10*3/uL High <0.87 k/uL [facility] Monocytes/100 WBC (Bld) 9.7 % [facility] Neutrophils (Bld) [#/Vol] 8.58 10*3/uL High 1.45 - 7.50 k/uL [facility] Neutrophils/100 WBC (Bld) 62.4 % [facility] Nucleated RBC (Bld) [#/Vol] <0.01 k/uL [facility] Nucleated RBC/100 WBC (Bld) [Ratio] 0.0 /100 WBC [facility] Platelet mean volume (Bld) [Entitic vol] 9.4 fL 9.0 - 12.7 fL [facility] Platelets (Bld) [#/Vol] 400 10*3/uL 150 - 400 k/uL [facility] RBC (Bld) [#/Vol] 4.06 10*6/uL Low 4.20 - 6.0 0 m/uL [facility] WBC (Bld) [#/Vol] 13.74 10*3/uL High 3.70 - 11.00 k/uL [facility] CBC W Auto Differential pane l (Bld)on 03-11-2023 Anisocytosis Ql (Bld) Present [facility] Basophils (Bld) [#/Vol] 0.12 10*3/uL High <0.11 k/uL [facility] Basophils/100 WBC (Bld) 0.7 % [facility] CBC W Differential panel, method unspecified (Bld) Done [facility] Differential cell count method Nom (Bld) Auto [facility] Eosinophils (Bld) [#/Vol] 0.51 10*3/uL High <0.46 k/uL [facility] Eosinophils/100 WBC (Bld) 3.0 % [facility] Erythrocyte distribution width (RBC) [Ratio] 19.9 % High 11.5 - 15.0 % [facility] Hematocrit (Bld) [Volume fraction] 33.5 % Low 39.0 - 51.0 % [facility] Hemoglobin (Bld) [Mass/Vol] 10.0 g/dL Low 13.0 - 17.0 g/dL [facility] Immature granulocytes (Bld) [#/Vol] 0.13 10*3/uL High <0.10 k/uL [facility] Immature granulocytes/100 WBC (Bld) 0.8 % [facility] Lymphocytes (Bld) [#/Vol] 3.47 10*3/uL 1.00 - 4.00 k/uL [facility] Lymphocytes/100 WBC (Bld) 20.2 % [facility] MCH (RBC) [Entitic mass] 23.3 pg Low 26.0 - 34.0 pg [facility] MCHC (RBC) [Mass/Vol] 29.9 g/dL Low 30.5 - 36.0 g/dL [facility] MCV (RBC) [Entitic vol] 78.1 fL Low 80.0 - 100.0 fL [facility] Monocytes (Bld) [#/Vol] 2.01 10*3/uL High <0.87 k/uL [facility] Monocytes/100 WBC (Bld) 11.7 % [facility] Neutrophils (Bld) [#/Vol] 10.93 10*3/uL High 1.45 - 7.50 k/uL [facility] Neutrophils/100 WBC (Bld) 63.6 % [facility] Nucleated RBC (Bld) [#/Vol] <0.01 k/uL [facility] Nucleated RBC/100 WBC (Bld) [Ratio] 0.0 /100 WBC [facility] Ovalocytes LM Ql (Bld) Few Cl [facility] Platelet mean volume (Bld) [Entitic vol] 9.9 fL 9.0 - 12.7 fL [facility] Platelets (Bld) [#/Vol] 415 10*3/uL High 150 - 400 k/uL [facility] Platelets Estimate (Bld) [#/Vol] Increased [facility] RBC (Bld) [#/Vol] 4.29 10*6/uL 4.20 - 6.0 0 m/uL [facility] Red Cell Morph Reviewed: see result s of individual morphologies [facility] WBC (Bld) [#/Vol] 17.17 10*3/uL High 3.70 - 11.00 k/uL [facility] Bacteria Ur Culton 3 Bacteria identified Cx Nom (U) Normal [facility] Comment on above: Performed By: #### 6 30-4 ####[facility]CL[facility] [id number] [place] [address] [place] CBC W Auto Differential pane l (Bld)on 03-10-2023 Basophils (Bld) [#/Vol] 0.10 10*3/uL <0.11 k/uL [facility] Basophils/100 WBC (Bld) 0.8 % [facility] Differential cell count method Nom (Bld) Auto [facility] Eosinophils (Bld) [#/Vol] 0.39 10*3/uL <0.46 k/uL [facility] Eosinophils/100 WBC (Bld) 2.9 % [facility] Erythrocyte distribution width (RBC) [Ratio] 19.7 % High 11.5 - 15.0 % [facility] Hematocrit (Bld) [Volume fraction] 29.5 % Low 39.0 - 51.0 % [facility] Hemoglobin (Bld) [Mass/Vol] 9.0 g/dL Low 13.0 - 17.0 g/dL [facility] Immature granulocytes (Bld) [#/Vol] 0.11 10*3/uL High <0.10 k/uL [facility] Immature granulocytes/100 WBC (Bld) 0.8 % [facility] Lymphocytes (Bld) [#/Vol] 3.11 10*3/uL 1.00 - 4.00 k/uL [facility] Lymphocytes/100 WBC (Bld) 23.3 % [facility] MCH (RBC) [Entitic mass] 23.2 pg Low 26.0 - 34.0 pg [facility] MCHC (RBC) [Mass/Vol] 30.5 g/dL 30.5 - 36.0 g/dL [facility] MCV (RBC) [Entitic vol] 76.0 fL Low 80.0 - 100.0 fL [facility] Monocytes (Bld) [#/Vol] 1.28 10*3/uL High <0.87 k/uL [facility] Monocytes/100 WBC (Bld) 9.6 % [facility] Neutrophils (Bld) [#/Vol] 8.34 10*3/uL High 1.45 - 7.50 k/uL [facility] Neutrophils/100 WBC (Bld) 62.6 % [facility] Nucleated RBC (Bld) [#/Vol] <0.01 k/uL [facility] Nucleated RBC/100 WBC (Bld) [Ratio] 0.0 /100 WBC [facility] Platelet mean volume (Bld) [Entitic vol] 9.9 fL 9.0 - 12.7 fL [facility] Platelets (Bld) [#/Vol] 441 10*3/uL High 150 - 400 k/uL [facility] RBC (Bld) [#/Vol] 3.88 10*6/uL Low 4.20 - 6.0 0 m/uL [facility] WBC (Bld) [#/Vol] 13.33 10*3/uL High 3.70 - 11.00 k/uL [facility] Urinalysis complete panel (U )on 03-10-2023 Bacteria LM.HPF (Urine sed) [#/Area] Negative Normal Negative [facility] Comment on above: Order Comment: Speci men Type: URINE SPECIMENOrdering Facility: [facility] Address: [address] [place] [address] Performed By: #### 2 4356-8 ####[facility] [id number] [place] [address] [place] Bilirubin Ql (U) Negative Normal Negative [facility] Comment on above: Order Comment: Speci men Type: URINE SPECIMENOrdering Facility: [facility] Address: [address] [place] [address] Performed By: #### 2 4356-8 ####[facility] [id number] [place] [address] [place] Clarity (Unsp spec) Clear Normal Clear [facility] Comment on above: Order Comment: Speci men Type: URINE SPECIMENOrdering Facility: [facility] Address: [address] [place] [address] Performed By: #### 2 4356-8 ####[facility] [id number] [place] [address] [place] Color (U) Yellow Normal Yellow [facility] Comment on above: Order Comment: Speci men Type: URINE SPECIMENOrdering Facility: [facility] Address: [address] [place] [address] Performed By: #### 2 4356-8 ####[facility] [id number] [place] [address] [place] Epithelial cells LM.HPF (Urine sed) [#/Area] None Seen Normal [facility] Comment on above: Order Comment: Speci men Type: URINE SPECIMENOrdering Facility: [facility] Address: [address] [place] [address] Performed By: #### 2 4356-8 ####[facility] [id number] [place] [address] [place] Glucose Test strip (U) [Mass/Vol] Negative Normal Negative [facility] Comment on above: Order Comment: Speci men Type: URINE SPECIMENOrdering Facility: [facility] Address: [address] [place] [address] Performed By: #### 2 4356-8 ####[facility] [id number] [place] [address] [place] Hemoglobin Ql (U) 2+ Abnormal Negative [facility] Comment on above: Order Comment: Speci men Type: URINE SPECIMENOrdering Facility: [facility] Address: [address] [place] [address] Performed By: #### 2 4356-8 ####[facility] [id number] [place] [address] [place] Hyaline casts (Urine sed) [#/Area] 4-10 /LPF Abnormal 0 /LPF [facility] Comment on above: Order Comment: Speci men Type: URINE SPECIMENOrdering Facility: [facility] Address: [address] [place] [address] Performed By: #### 2 4356-8 ####[facility] [id number] [place] [address] [place] Ketones Ql (U) Negative Normal Negative [facility] Comment on above: Order Comment: Speci men Type: URINE SPECIMENOrdering Facility: [facility] Address: [address] [place] [address] Performed By: #### 2 4356-8 ####[facility]CL[facility] [id number] [place] [address] [place] Leukocyte esterase Test strip Ql (U) 2+ Abnormal Negative [facility] Comment on above: Order Comment: Speci men Type: URINE SPECIMENOrdering Facility: [facility] Address: [address] [place] [address] Performed By: #### 2 4356-8 ####[facility] [id number] [place] [address] [place] Nitrite Ql (U) Negative Normal Negative [facility] Comment on above: Order Comment: Speci men Type: URINE SPECIMENOrdering Facility: [facility] Address: [address] [place] [address] Performed By: #### 2 4356-8 ####[facility] [id number] [place] [address] [place] pH (U) 5.5 [pH] Normal <8.5 [facility] Comment on above: Order Comment: Speci men Type: URINE SPECIMENOrdering Facility: [facility] Address: [address] [place] [address] Performed By: #### 2 4356-8 ####[facility] [id number] [place] [address] [place] Protein (U) [Mass/Vol] 1+ Abnormal Negative [facility] Comment on above: Order Comment: Speci men Type: URINE SPECIMENOrdering Facility: [facility] Address: [address] [place] [address] Performed By: #### 2 4356-8 ####[facility]CL[facility] [id number] [place] [address] [place] RBC LM.HPF (Urine sed) [#/Area] /[HPF] Abnormal 0-2 /HPF [facility] Comment on above: Order Comment: Speci men Type: URINE SPECIMENOrdering Facility: [facility] Address: [address] [place] [address] Performed By: #### 2 4356-8 ####[facility] LABIA [id number] [place] [address] [place] Specific gravity (U) [Rel density] 1.018 Normal 1.005-1.030 [facility] Comment on above: Order Comment: Speci men Type: URINE SPECIMENOrdering Facility: [facility] Address: [address] [place] [address] Performed By: #### 2 4356-8 ####[facility] LABIA [id number] [place] [address] [place] Urobilinogen Ql (U) 0.2 EU/dL Normal 0.2-1.0 EU/dL [facility] Comment on above: Order Comment: Speci men Type: URINE SPECIMENOrdering Facility: [facility] Address: [address] [place] [address] Performed By: #### 2 4356-8 ####[facility] LABIA [id number] [place] [address] [place] WBC LM.HPF (Urine sed) [#/Area] /[HPF] Abnormal 0-5 /HPF [facility] Comment on above: Order Comment: Speci men Type: URINE SPECIMENOrdering Facility: [facility] Address: [address] [place] [address] Performed By: #### 2 4356-8 ####[facility] LABIA [id number] [place] [address] [place] CBC W Auto Differential pane l (Bld)on 03-09-2023 Basophils (Bld) [#/Vol] 0.07 10*3/uL <0.11 k/uL [facility] Basophils/100 WBC (Bld) 0.6 % [facility] Differential cell count method Nom (Bld) Auto [facility] Eosinophils (Bld) [#/Vol] 0.41 10*3/uL <0.46 k/uL [facility] Eosinophils/100 WBC (Bld) 3.5 % [facility] Erythrocyte distribution width (RBC) [Ratio] 19.6 % High 11.5 - 15.0 % [facility] Hematocrit (Bld) [Volume fraction] 29.6 % Low 39.0 - 51.0 % [facility] Hemoglobin (Bld) [Mass/Vol] 8.9 g/dL Low 13.0 - 17.0 g/dL [facility] Immature granulocytes (Bld) [#/Vol] 0.08 10*3/uL <0.10 k/uL [facility] Immature granulocytes/100 WBC (Bld) 0.7 % [facility] Lymphocytes (Bld) [#/Vol] 3.03 10*3/uL 1.00 - 4.00 k/uL [facility] Lymphocytes/100 WBC (Bld) 25.7 % [facility] MCH (RBC) [Entitic mass] 23.5 pg Low 26.0 - 34.0 pg [facility] MCHC (RBC) [Mass/Vol] 30.1 g/dL Low 30.5 - 36.0 g/dL [facility] MCV (RBC) [Entitic vol] 78.1 fL Low 80.0 - 100.0 fL [facility] Monocytes (Bld) [#/Vol] 1.20 10*3/uL High <0.87 k/uL [facility] Monocytes/100 WBC (Bld) 10.2 % [facility] Neutrophils (Bld) [#/Vol] 6.98 10*3/uL 1.45 - 7.50 k/uL [facility] Neutrophils/100 WBC (Bld) 59.3 % [facility] Platelet mean volume (Bld) [Entitic vol] 10.1 fL 9.0 - 12.7 fL [facility] Platelets (Bld) [#/Vol] 398 10*3/uL 150 - 400 k/uL [facility] RBC (Bld) [#/Vol] 3.79 10*6/uL Low 4.20 - 6.0 0 m/uL [facility] WBC (Bld) [#/Vol] 11.77 10*3/uL High 3.70 - 11.00 k/uL [facility] Comprehensive metabolic 2000 panelon 03-09-2023 Albumin [Mass/Vol] 2.6 g/dL Low 3.9 - 4.9 g/dL [facility] ALP [Catalytic activity/Vol] 138 U/L High 38 - 113 U/L [facility] ALT [Catalytic activity/Vol] 11 U/L 10 - 54 U/L [facility] Anion gap [Moles/Vol] 13 mmol/L 9 - 18 mmol/L [facility] AST [Catalytic activity/Vol] 22 U/L 14 - 40 U/L [facility] Bilirubin [Mass/Vol] 0.2 mg/dL 0.2 - 1 .3 mg/dL [facility] Calcium [Mass/Vol] 8.3 mg/dL Low 8.5 - 10. 2 mg/dL [facility] Chloride [Moles/Vol] 99 mmol/L 97 - 10 5 mmol/L [facility] CO2 [Moles/Vol] 22 mmol/L 22 - 30 mmol/L [facility] Creatinine [Mass/Vol] 0.48 mg/dL Low 0.73 - 1.22 mg/dL [facility] Estimated Glomerular Filtration Rate 122 mL/min/1.73m >=60 mL/min/1.73 m [facility] Glucose [Mass/Vol] 171 mg/dL High 74 - 99 mg/dL [facility] Potassium [Moles/Vol] 4.4 mmol/L 3.7 - 5.1 mmol/L [facility] Protein [Mass/Vol] 5.9 g/dL Low 6.3 - 8.0 g/dL [facility] Sodium [Moles/Vol] 134 mmol/L Low 136 - 144 mmol/L [facility] Urea nitrogen [Mass/Vol] 18 mg/dL 9 - 24 mg/dL [facility] Absolute lymphocyte countOrd ered By: Dina Maynard on 02-05-2023 Lymphocytes Auto (Unsp spec) [#/Vol] 2.16 10*3/uL 0.83-4.51 [facility] Basophil percentageOrdered B y: Dina Maynard on 02-05-2023 Basophils/100 WBC (Bld) 0.7 % 0-1 [facility] Chloride [Moles/Vol] 104 mmol/L 98-107 [facility] Eosinophils/100 WBC (Bld) 4.8 % 0-5 [facility] Glucose [Mass/Vol] 167 mg/dL 74-106 [facility] Comment on above: Fasting Glucose resu lt greater than or equal to 126 mg/dL suggests DIABETES MELLITUS per A.D.A. criteria. Neutrophils (Bld) [#/Vol] 5.4 10*3/uL 2.0-7.7 [facility] Neutrophils/100 WBC (Bld) 59.0 % 47-70 [facility] Potassium [Moles/Vol] 4.1 mmol/L 3.5-5.1 [facility] Sodium [Moles/Vol] 136 mmol/L 136-145 [facility] WBC (Bld) [#/Vol] 9.1 10*3/uL 4.4-11.0 [facility] Blood erythrocytes count (nu mber/volume)Ordered By: Dina Maynard on 02-05-2023 RBC (Bld) [#/Vol] 3.51 10*6/uL 4.6-6.2 [facility] Blood hemoglobin measurement (mass/volume)Ordered By: Dina Maynard on 02-05-2023 Hemoglobin (Bld) [Mass/Vol] 7.9 g/dL 13.0-16.5 [facility] Blood lymphocytes/100 leukoc ytesOrdered By: Dina Maynard on 02-05-2023 Lymphocytes/100 WBC (Bld) 23.9 % 19-41 [facility] Blood monocytes/100 leukocyt esOrdered By: Dina Maynard on 02-05-2023 Monocytes/100 WBC (Bld) 10.5 % 0-10 [facility] Blood platelet mean volumeOr dered By: Dina Maynard on 02-05-2023 Platelet mean volume (Bld) [Entitic vol] 8.7 fL 6.2-12.0 [facility] Determination of erythrocyte mean corpuscular volume (MCV)Ordered By: Dina Maynard on 02-05-2023 MCV (RBC) [Entitic vol] 78.1 fL 80-94 [facility] Glucose Glucometer (BldC) [M ass/Vol]Ordered By: Dina Maynard on 02-05-2023 Glucose [Mass/Vol] 117 mg/dL 74-106 [facility] Comment on above: MANAGEMENT OF PATIEN T CARE PER NURSING PROTOCOL Hematocrit Auto (Bld) [Volum e fraction]Ordered By: Dina Maynard on 02-05-2023 Hematocrit (Bld) [Volume fraction] 27.4 % 40-54 [facility] Laboratory - Chemistry and C hemistry - challengeOrdered By: Dina Maynard on 02-05-2023 CO2 [Moles/Vol] 27.0 mmol/L 21.0-32.0 [facility] Urea nitrogen/Creatinine [Mass ratio] 27.0 mg/mg 10-20 [facility] Laboratory - CoagulationOrde red By: Dina Maynard on 02-05-2023 aPTT Coag (Bld) [Time] 62.2 s 24.1-36.2 [facility] Laboratory - Hematology and Cell countsOrdered By: Dina Maynard on 02-05-2023 Erythrocyte distribution width (RBC) [Entitic vol] 54.3 fL 35.1-43.9 [facility] Erythrocyte distribution width (RBC) [Ratio] 19.3 % 11.6-14.6 [facility] Immature granulocytes/100 WBC (Bld) 1.100 % 0.0-0.9 [facility] Comment on above: IG% - Immature Granu locytes (promyelocytes, myelocytes and metamyelocytes) > 1% indicates that a LEFT SHIFT is Present. MCH (RBC) [Entitic mass] 22.5 pg 27.0-32.0 [facility] Nucleated RBC/100 WBC (Bld) [Ratio] 0 % 0-5 [facility] MCHC Auto (RBC) [Mass/Vol]Or dered By: Dina Maynard on 02-05-2023 MCHC (RBC) [Mass/Vol] 28.8 g/dL 32-36 [facility] No Panel InformationOrdered By: Dina Maynard on 02-05-2023 Estimated Creatinine Clearance Calc 208.21 ml/min [facility] Estimated GFR (MDRD) Amer 254 mL/min >60 [facility] Comment on above: GFR Calc Estimated GFR (MDRD) Non-Af Amer 210 mL/min >60 [facility] Comment on above: Non- GFR Calc Platelets bldOrdered By: Salima Maynard on 02-05-2023 Platelets (Bld) [#/Vol] 269 10*3/uL 150-450 [facility] Serum or plasma calcium sarah urement (mass/volume)Ordered By: Dina Maynard on 02-05-2023 Calcium [Mass/Vol] 8.3 mg/dL 8.5-10.1 [facility] Serum or plasma creatinine m easurement (mass/volume)Ordered By: Dina Maynard on 02-05-2023 Creatinine [Mass/Vol] 0.44 mg/dL 0.70-1.30 [facility] Comment on above: The validity of the calculated GFR & GFRAA in patients over 70 years has not been determined. Clinical correlation is essential. Serum or plasma urea nitroge n measurement (mass/volume)Ordered By: Dina Maynard on 02-05-2023 Urea nitrogen [Mass/Vol] 12 mg/dL 7-18 [facility] Serum or plasma vancomycin m easurement (mass/volume)Ordered By: Minda Cm on 02-05-2023 Vancomycin [Mass/Vol] 15.4 ug/mL 0.0-15.0 [facility] Comment on above: VANCOMYCIN STANDARD DRUG THERAPY: CRITICAL VALUE IS > 15.0 mg/L VANCOMYCIN HIGH INTENSITY THERAPY: CRITICAL VALUE IS > 20.0 mg/L PLEASE CONTACT PHARMACY SERVICES (#[id number]) FOR INTERPRETATIONOF RESULTS. THIS RESULT DOES NOT REPRESENT A PEAK OR TROUGHLEVEL FOR THIS DRUG. Stool gastrointestinal hemog lobin detection by immunologic methodOrdered By: Terri Nino on 02-05-2023 Lower GI hemoglobin IA Ql (Stl) [facility] Thin prep Papanicolaou smear with manual screeningOrdered By: Dina Maynard on 02-05-2023 Thin prep Papanicolaou smear with manual screening 5 5-15 [facility] Serum or plasma trough vanco mycin levelOrdered By: Minda Cm on 02-04-2023 Vancomycin trough [Mass/Vol] 20.6 ug/mL 5.0-15.0 [facility] Comment on above: VANCOMYCIN STANDARED DRUG THERAPY TROUGH LEVEL: 5.0 - 15.0 mg/L VANCOMYCIN HIGH INTENSITY THERAPY TROUGH LEVEL: 15.0 - 20.0 mg/L High Intensity therapy recommended for serious lifethreatening infections include:- Kzjmlmakja-Uxewzkfqchws-Avxqinufj (Ventilator/Healtcare Associated)-Sepsis PLEASE CONTACT PHARMACY SERVICES (#[id number]) FOR INTERPRETATIONOF RESULTS. Basophil percentageOrdered B y: Terri Mica on 02-02-2023 Bilirubin [Mass/Vol] 0.40 mg/dL 0.20-1.00 [facility] Comment on above: For patients on eltr ombopag therapy, use of Dimension [place] TBIL is not recommended. Cholesterol [Mass/Vol] 123 mg/dL <200 [facility] Comment on above: <200 mg/dL Desirable 200-240 mg/dL Borderline >240 mg/dL High Risk Protein [Mass/Vol] 6.5 g/dL 6.4-8.2 [facility] Triglyceride [Mass/Vol] 154 mg/dL <199 [facility] Comment on above: The drugs N-Acetylcy steine and Metamizole may falsely depress this assay.Serum Triglycerides Reference Interval Normal <150 mg/dL Borderline high 150 - 199 mg/dL High 200 - 499 mg/dL Very High > or = 500 mg/dL COVID-19 virus antigen assay Ordered By: Dina Maynard on 02-02-2023 SARS-CoV-2 (COVID-19) Ag IA.rapid Ql (Resp) [facility] Laboratory - Chemistry and C hemistry - challengeOrdered By: Terri Nino on 02-02-2023 ALP [Catalytic activity/Vol] 122 U/L 45-117 [facility] ALT [Catalytic activity/Vol] 55 U/L 16-61 [facility] CK [Catalytic activity/Vol] 2416 U/L 39-308 [facility] Globulin (S) [Mass/Vol] 4.4 g/dL 2.2-4.2 [facility] No Panel InformationOrdered By: Terri Nino on 02-02-2023 Troponin I High Sensitivity 156 pg/mL 3.0-78.0 [facility] Comment on above: Critical Result(s) C alled at: 04:18:33 02/02/2023 by: PILAR Wray RN PCU. Results read back by same. Please Note: New Test Units and Gender Specific Reference Ranges. For more information see Policy Stat Procedure [place] High Sensitivity Troponin (TNIH) and attachments. Methicillin-Resist S.aureus DNA PCR Negative Negative [facility] Serum or plasma albumin sarah urement (mass/volume)Ordered By: Terri Nino on 02-02-2023 Albumin [Mass/Vol] 2.1 g/dL 3.2-5.0 [facility] Serum or plasma albumin/glob ulin mass ratioOrdered By: Terri Nino on 02-02-2023 Albumin/Globulin [Mass ratio] 0.5 {ratio} 0.9-2.4 [facility] Serum or plasma cholesterol in HDL measurement (mass/volume)Ordered By: Terri Nino on 02-02-2023 Cholesterol in HDL [Mass/Vol] 26 mg/dL >40 [facility] Comment on above: The drugs N-Acetylcy steine and Metamizole may falsely depress this assay. Reference Range HDL <40 mg/dL Low HDL Cholesterol HDL >or= 60 mg/dL High HDL Cholesterol Serum or plasma cholesterol in VLDL measurement (mass/volume)Ordered By: Terri Nino on 02-02-2023 Cholesterol in VLDL [Mass/Vol] 31 mg/dL 5-40 [facility] Serum or plasma low density lipoprotein (LDL) cholesterol measurement (mass/volume)Ordered By: Terri Nino on 02-02-2023 Cholesterol in LDL [Mass/Vol] 66 mg/dL 0-130 [facility] Thin prep Papanicolaou smear with manual screeningOrdered By: Terri Nino on 02-02-2023 Thin prep Papanicolaou smear with manual screening 163 U/L 15-37 [facility] Whole blood hemoglobin A1c/t otal hemoglobin ratio (mass fraction)Ordered By: Terri Nino on 02-02-2023 HbA1c (Bld) [Mass fraction] 5.6 % 3.8-5.6 [facility] Comment on above: Normal < 5.7 % Predi abetic 5.7 - 6.4 % Diabetic >or= 6.5 % Please note range changes. Assessment of wrist artery p atency prior to arterial punctureOrdered By: Lucian Beckett on 02-01-2023 Arterial patency Wrist artery --pre arterial puncture Positive [facility] Base excessOrdered By: Lucian Beckett on 02-01-2023 Base excess Calc (BldV) [Moles/Vol] 3 mmol/L -2-2 [facility] Basophil percentageOrdered B y: Terri Nino on 02-01-2023 Basophil percentage 4.2 mg/dL 2.5-4.9 [facility] Basophil percentageOrdered B y: Lucian Beckett on 02-01-2023 Basophil percentage 27.9 mmol/L 22-26 [facility] Basophils/100 WBC (Bld) 94 % 95-99 [facility] Basophil percentageOrdered B y: Maninder Miller on 02-01-2023 Basophil percentage >100 SEEN /hpf 0-5 [facility] Lactate [Moles/Vol] 0.9 mmol/L 0.4-2.0 [facility] Bilirubin Test strip Ql (U)O rdered By: Maninder Miller on 02-01-2023 Bilirubin Ql (U) Negative Negative [facility] CO2 (BldA) [Partial pressure ]Ordered By: Lucian Beckett on 02-01-2023 CO2 (Bld) [Partial pressure] 48.1 mm[Hg] 35-45 [facility] Culture, urineOrdered By: Maverick Miller on 02-01-2023 Bacteria identified Cx Nom (U) Pseudomonas aeruginosa [facility] INR in Blood by Coagulation assayOrdered By: Maninder Miller on 02-01-2023 INR Coag (Bld) [Relative time] 1.1 {INR} [facility] Iron measurement (mass/mass) Ordered By: Terri Nino on 02-01-2023 Iron (Unsp spec) [Mass/Mass] 19 ug/dL 65-175 [facility] Ketones Test strip Ql (U)Ord ered By: Maninder Miller on 02-01-2023 Ketones Ql (U) Negative Negative [facility] Laboratory - Chemistry and C hemistry - challengeOrdered By: Terri Nino on 02-01-2023 Magnesium [Mass/Vol] 2.4 mg/dL 1.6-2.6 [facility] Laboratory - CoagulationOrde red By: Maninder Miller on 02-01-2023 PT Coag (PPP) [Time] 14.5 s 11.7-14.9 [facility] Mucus LM Ql (Urine sed)Order ed By: Maninder Miller on 02-01-2023 Mucus Ql (Urine sed) 0 SEEN /hpf [facility] Nitrite Test strip Ql (U)Ord ered By: Maninder Miller on 02-01-2023 Nitrite Ql (U) Negative Negative [facility] No Panel InformationOrdered By: Terri Nino on 02-01-2023 Total Iron Binding Capacity 250 ug/dL 250-450 [facility] No Panel InformationOrdered By: Lucian Beckett on 02-01-2023 Blood Gas Oxygen Percent 2.0 [facility] Blood Gas Sample Site R Radial [facility] Blood Gas Specimen Type ART [facility] Blood Gas Total CO2 29 mmol/L [facility] Blood Gas Vent Mode Not entered [facility] Oxygen Delivery Device Cannula [facility] Oxygen (BldA) [Partial press ure]Ordered By: Lucian Beckett on 02-01-2023 Oxygen (Bld) [Partial pressure] 73 mmHG 75-100 [facility] Protein Test strip Ql (U)Ord ered By: Maninder Miller on 02-01-2023 Protein Ql (U) 15 mg/dl Negative [facility] Review by pathologistOrdered By: Maninder Miller on 02-01-2023 Pathologist review Guerrero (Unsp spec) [Interp] Reviewed [facility] Comment on above: Previous reported re sult: September nahid Edited by: RGOOD on 02/03/23:0952Neutrophilic leukocytosis.Normocytic anemia.Clinical correlation necessary.Stevan Goff M.D. 02/03/23 AMENDED REPORT 02/03/23 0952 PATH REV previously reported as: September nahid Serum or plasma ferritin felicia surement (mass/volume)Ordered By: Terri Nino on 02-01-2023 Ferritin [Mass/Vol] 1289 ng/mL 26-388 [facility] Serum or plasma iron saturat ion measurement (mass fraction)Ordered By: Terri Nino on 02-01-2023 Iron saturation [Mass fraction] 7.6 % 15.0-55.0 [facility] Squamous epithelial cells de tection in urine sediment by light microscopyOrdered By: Maninder Miller on 02-01-2023 Epithelial cells.squamous LM Ql (Urine sed) 0 SEEN /hpf 0-5 [facility] Urine blood detectionOrdered By: Maninder Miller on 02-01-2023 RBC Ql (U) 150 /ul Negative [facility] RBC Ql (U) 0 SEEN /hpf 0-5 [facility] Urine clarityOrdered By: Viviane Miller on 02-01-2023 Clarity (U) Sl. Cloudy Clear [facility] Urine color determinationOrd ered By: Maninder Miller on 02-01-2023 Color (U) Yellow Yellow [facility] Urine glucose detectionOrder ed By: Maninder Miller on 02-01-2023 Glucose Ql (U) Normal mg/dl Normal [facility] Urine leukocyte esterase det ection by dipstickOrdered By: Maninder Miller on 02-01-2023 Leukocyte esterase Test strip Ql (U) 500 /ul Negative [facility] Urine pHOrdered By: Maninder tolentino on 02-01-2023 pH (U) 6.0 [pH] 5.0 - 8.0 [facility] Urine sediment bacteria coun t by microscopy (number/high power field)Ordered By: Maninder Miller on 02-01-2023 Bacteria LM.HPF (Urine sed) [#/Area] 0 /[HPF] None Seen [facility] Urine specific gravity measu rementOrdered By: Maninder Miller on 02-01-2023 Specific gravity (U) [Rel density] 1.010 1.002-1.030 [facility] Urobilinogen Auto test strip Ql (U)Ordered By: Maninder Miller on 02-01-2023 Urobilinogen Ql (U) Normal mg/dl Normal [facility] pH measurementOrdered By: Jonathon Beckett on 02-01-2023 pH (Unsp spec) 7.37 [pH] 7.35-7.45 [facility] CBCDIF (EXTERNAL)on 12-28-19 BASO ABS 0.1 K/uL 0 - 0.2 K/uL [facility] Basophils/100 WBC (Bld) 1.2 % 0 - 1.5 % [facility] EOS ABS 0.2 K/uL 0.1 - 0.3 K/uL [facility] Eosinophils/100 WBC (Bld) 3.7 % Abnormal 1 - 3 % [facility] Erythrocyte distribution width (RBC) [Ratio] 19.9 % Abnormal 11 - 16 % [facility] Hematocrit (Bld) [Volume fraction] 28.9 % Abnormal 39 - 55 % [facility] Hemoglobin (Bld) [Mass/Vol] 8.5 g/dL Abnormal 14 - 16.5 g/dL [facility] Lymphocytes (Bld) [#/Vol] 1.4 10*3/uL 1.2 - 4 K/uL [facility] Lymphocytes/100 WBC (Bld) 26 % 20 - 30 % [facility] MCH (RBC) [Entitic mass] 23.1 pg Abnormal 25.4 - 34.6 pg [facility] MCHC (RBC) [Mass/Vol] 29.4 g/dL Abnormal 30 - 3 6 g/dL [facility] MCV (RBC) [Entitic vol] 78.4 fL Abnormal 79 - 98 fL [facility] MONO ABS 0.6 K/uL 0 - 1 K/uL [facility] Monocytes/100 WBC (Bld) 12 % Abnormal 2 - 8 % [facility] NEUT ABS 3 K/uL 1.9 - 8 K/uL [facility] Neutrophils/100 WBC (Bld) 57.1 % 40 - 74 % [facility] Platelet mean volume (Bld) [Entitic vol] 7.3 fL Abnormal 7.4 - 10.4 fL [facility] Platelets (Bld) [#/Vol] 317 10*3/uL 140 - 440 K/uL [facility] RBC (Bld) [#/Vol] 3.69 10*6/uL Abnormal 4 - 6 M/uL [facility] WBC (Bld) [#/Vol] 5.3 10*3/uL 3.9 - 11 K/uL [facility] CREATININE BLOOD (AK,AV,EU,F V,HL,EUGENE,MM,SP)on 12-27-2022 Creatinine [Mass/Vol] 0.6 mg/dL Abnormal 0.70 - 1.20 mg/dL [facility] GFR AFR AMER 169 mL/MIN 60 mL/MIN [facility] GFR/1.73 sq M.predicted among non-blacks MDRD (S/P/Bld) [Vol rate/Area] 140 mL/min/{1.73_m2} 60 mL/MIN [facility] CBCDIF (EXTERNAL)on 12-21-19 BASO ABS 0.1 K/uL 0 - 0.2 K/uL [facility] Basophils/100 WBC (Bld) 1.1 % 0 - 1.5 % [facility] EOS ABS 0.2 K/uL 0.1 - 0.3 K/uL [facility] Eosinophils/100 WBC (Bld) 2.9 % 1 - 3 % [facility] Erythrocyte distribution width (RBC) [Ratio] 19.8 % Abnormal 11 - 16 % [facility] Hematocrit (Bld) [Volume fraction] 31.2 % Abnormal 39 - 55 % [facility] Hemoglobin (Bld) [Mass/Vol] 9.2 g/dL Abnormal 14 - 16.5 g/dL [facility] Lymphocytes (Bld) [#/Vol] 1.6 10*3/uL 1.2 - 4 K/uL [facility] Lymphocytes/100 WBC (Bld) 24.5 % 20 - 30 % [facility] MCH (RBC) [Entitic mass] 23.6 pg Abnormal 25.4 - 34.6 pg [facility] MCHC (RBC) [Mass/Vol] 29.4 g/dL Abnormal 30 - 3 6 g/dL [facility] MCV (RBC) [Entitic vol] 80 fL 79 - 98 fL [facility] MONO ABS 0.8 K/uL 0 - 1 K/uL [facility] Monocytes/100 WBC (Bld) 12.8 % Abnormal 2 - 8 % [facility] NEUT ABS 3.9 K/uL 1.9 - 8 K/uL [facility] Neutrophils/100 WBC (Bld) 58.7 % 40 - 74 % [facility] Platelet mean volume (Bld) [Entitic vol] 7.5 fL 7.4 - 10.4 fL [facility] Platelets (Bld) [#/Vol] 322 10*3/uL 140 - 440 K/uL [facility] RBC (Bld) [#/Vol] 3.9 10*6/uL Abnormal 4 - 6 M/uL [facility] WBC (Bld) [#/Vol] 6.7 10*3/uL 3.9 - 11 K/uL [facility] CREATININE BLOOD (AK,AV,EU,F V,HL,EUGENE,MM,SP)on 12-20-2022 Creatinine [Mass/Vol] 0.6 mg/dL Abnormal 0.70 - 1.20 mg/dL [facility] GFR AFR AMER 169 mL/MIN 60 mL/MIN [facility] GFR/1.73 sq M.predicted among non-blacks MDRD (S/P/Bld) [Vol rate/Area] 140 mL/min/{1.73_m2} 60 mL/MIN [facility] CASE MANAGEMon 12-14-2022 CASE MANAGEM Normal [facility] CBC W Auto Differential pane l (Bld)on 12-14-2022 Basophils (Bld) [#/Vol] 0.03 10*3/uL Normal <0.11 [facility] Comment on above: Order Comment: Speci men Type: BLOOD SPECIMENOrdering Facility: [facility] Address: [address] [address] Performed By: #### 5 7021-8 ####[facility]ATORYCLIA [id number] [address] [place] Basophils/100 WBC (Bld) 0.5 % Normal [facility] Comment on above: Order Comment: Speci men Type: BLOOD SPECIMENOrdering Facility: [facility] Address: [address] [place] [address] Performed By: #### 5 7021-8 ####[facility]ORATORYCLIA [id number] [address] [place] Differential cell count method Nom (Bld) Auto Normal [facility] Comment on above: Order Comment: Speci men Type: BLOOD SPECIMENOrdering Facility: [facility] Address: [address] [place] [address] Performed By: #### 5 7021-8 ####[facility]ATORYCLIA [id number] [place] [address] [place] Eosinophils (Bld) [#/Vol] 0.14 10*3/uL Normal <0.46 [facility] Comment on above: Order Comment: Speci men Type: BLOOD SPECIMENOrdering Facility: [facility] Address: [address] [place] [address] Performed By: #### 5 7021-8 ####[facility]ORATORYCLIA [id number] [place] [address] [place] Eosinophils/100 WBC (Bld) 2.4 % Normal [facility] Comment on above: Order Comment: Speci men Type: BLOOD SPECIMENOrdering Facility: [facility] Address: [address] [place] [address] Performed By: #### 5 7021-8 ####[facility]ORATORYCLIA [id number] [address] [place] Erythrocyte distribution width (RBC) [Ratio] 16.7 % High 11.5-15.0 [facility] Comment on above: Order Comment: Speci men Type: BLOOD SPECIMENOrdering Facility: [facility] Address: [address] [place] [address] Performed By: #### 5 7021-8 ####[facility]ORATORYCLIA [id number] [address] [place] Hematocrit (Bld) [Volume fraction] 28.4 % Low 39.0-51.0 [facility] Comment on above: Order Comment: Speci men Type: BLOOD SPECIMENOrdering Facility: [facility] Address: [address] [place] [address] Performed By: #### 5 7021-8 ####[facility]ORATORYCLIA [id number] [address] [place] Hemoglobin (Bld) [Mass/Vol] 7.9 g/dL Low 13.0-17.0 [facility] Comment on above: Order Comment: Speci men Type: BLOOD SPECIMENOrdering Facility: [facility] Address: [address] [place] [address] Performed By: #### 5 7021-8 ####[facility]ORATORYCLIA [id number] [address] [place] Immature granulocytes (Bld) [#/Vol] 10*3/uL Normal <0.10 [facility] Comment on above: Order Comment: Speci men Type: BLOOD SPECIMENOrdering Facility: [facility] Address: [address] [place] [address] Performed By: #### 5 7021-8 ####[facility]ORATORYCLIA [id number] [address] OF [facility] Immature granulocytes/100 WBC (Bld) 0.3 % Normal [facility] Comment on above: Order Comment: Speci men Type: BLOOD SPECIMENOrdering Facility: [facility] Address: [address] [place] [address] Performed By: #### 5 7021-8 ####[facility]ORATORYCLIA [id number] [place] [address] [place] Lymphocytes (Bld) [#/Vol] 1.48 10*3/uL Normal 1.00-4.00 [facility] Comment on above: Order Comment: Speci men Type: BLOOD SPECIMENOrdering Facility: [facility] Address: [address] [place] [address] Performed By: #### 5 7021-8 ####[facility]ORATORYCLIA [id number] [address] Lymphocytes/100 WBC (Bld) 24.9 % Normal [facility] Comment on above: Order Comment: Speci men Type: BLOOD SPECIMENOrdering Facility: [facility] Address: [address] [place] [address] Performed By: #### 5 7021-8 ####[facility]ORATORYCLIA [id number] [address] [place] MCH (RBC) [Entitic mass] 22.9 pg Low 26.0-34.0 [facility] Comment on above: Order Comment: Speci men Type: BLOOD SPECIMENOrdering Facility: [facility] Address: [address] [place] [address] Performed By: #### 5 7021-8 ####[facility]ORATORYCLIA [id number] [address] [place] MCHC (RBC) [Mass/Vol] 27.8 g/dL Low 30.5-36.0 [facility] Comment on above: Order Comment: Speci men Type: BLOOD SPECIMENOrdering Facility: [facility] Address: [address] [place] [address] Performed By: #### 5 7021-8 ####[facility]ATORYCLIA [id number] [place] [address] [place] MCV (RBC) [Entitic vol] 82.3 fL Normal 80.0-100.0 [facility] Comment on above: Order Comment: Speci men Type: BLOOD SPECIMENOrdering Facility: [facility] Address: [address] [place] [address] Performed By: #### 5 7021-8 ####[facility]ORYCLIA [id number] [place] [address] [place] Monocytes (Bld) [#/Vol] 0.46 10*3/uL Normal <0.87 [facility] Comment on above: Order Comment: Speci men Type: BLOOD SPECIMENOrdering Facility: [facility] Address: [address] [place] [address] Performed By: #### 5 7021-8 ####[facility]ORATORYCLIA [id number] [address] [place] Monocytes/100 WBC (Bld) 7.7 % Normal [facility] Comment on above: Order Comment: Speci men Type: BLOOD SPECIMENOrdering Facility: [facility] Address: [address] [place] [address] Performed By: #### 5 7021-8 ####[facility]ORATORYCLIA [id number] [place] [address] [place] Neutrophils (Bld) [#/Vol] 3.82 10*3/uL Normal 1.45-7.50 [facility] Comment on above: Order Comment: Speci men Type: BLOOD SPECIMENOrdering Facility: [facility] Address: [address] [place] [address] Performed By: #### 5 7021-8 ####[facility]ORYCLIA [id number] [address] [place] Neutrophils/100 WBC (Bld) 64.2 % Normal [facility] Comment on above: Order Comment: Speci men Type: BLOOD SPECIMENOrdering Facility: [facility] Address: [address] [address] Performed By: #### 5 7021-8 ####[facility]ORATORYCLIA [id number] [address] Nucleated RBC (Bld) [#/Vol] 10*3/uL Normal <0.01 [facility] Comment on above: Order Comment: Speci men Type: BLOOD SPECIMENOrdering Facility: [facility] Address: [address] [address] Performed By: #### 5 7021-8 ####[facility]ORATORYCLIA [id number] [address] Nucleated RBC/100 WBC (Bld) [Ratio] 0.0 /100 WBC Normal [facility] Comment on above: Order Comment: Speci men Type: BLOOD SPECIMENOrdering Facility: [facility] Address: [address] [address] Performed By: #### 5 7021-8 ####[facility]ORATORYCLIA [id number] [address] [place] Platelet mean volume (Bld) [Entitic vol] 9.4 fL Normal 9.0-12.7 [facility] Comment on above: Order Comment: Speci men Type: BLOOD SPECIMENOrdering Facility: [facility] Address: [address] [address] Performed By: #### 5 7021-8 ####[facility]ORATORYCLIA [id number] [address] [place] Platelets (Bld) [#/Vol] 289 10*3/uL Normal 150-400 [facility] Comment on above: Order Comment: Speci men Type: BLOOD SPECIMENOrdering Facility: [facility] Address: [address] [place] [address] Performed By: #### 5 7021-8 ####[facility]ORATORYCLIA [id number] [address] [place] RBC (Bld) [#/Vol] 3.45 10*6/uL Low 4.20-6.00 [facility] Comment on above: Order Comment: Speci men Type: BLOOD SPECIMENOrdering Facility: [facility] Address: [address] [place] [address] Performed By: #### 5 7021-8 ####[facility]ORATORYCLIA [id number] [place] [address] [place] WBC (Bld) [#/Vol] 5.95 10*3/uL Normal 3.70-11.00 [facility] Comment on above: Order Comment: Speci men Type: BLOOD SPECIMENOrdering Facility: [facility] Address: [address] [place] [address] Performed By: #### 5 7021-8 ####[facility]ORATORYCLIA [id number] [address] [place] CNDSon 12-14-2022 CNDS Normal [facility] CONSULT PROGon 12-14-2022 CONSULT PROG Normal [facility] Renal function 2000 panelon 12-14-2022 Albumin [Mass/Vol] 3.4 g/dL Low 3.9-4.9 [facility] Comment on above: Order Comment: Speci men Type: BLOOD SPECIMENOrdering Facility: [facility] Address: [address] [place] [address] Performed By: #### 2 4362-6 ####[facility]ORATORYCLIA [id number] [address] STATES OF [facility] Anion gap [Moles/Vol] 10 mmol/L Normal 9-18 [facility] Comment on above: Order Comment: Speci men Type: BLOOD SPECIMENOrdering Facility: [facility] Address: [address] [place] [address] Performed By: #### 2 4362-6 ####[facility]ORATORYCLIA [id number] [address] [place] Calcium [Mass/Vol] 8.5 mg/dL Normal 8.5-10.2 [facility] Comment on above: Order Comment: Speci men Type: BLOOD SPECIMENOrdering Facility: [facility] Address: [address] [place] [address] Performed By: #### 2 4362-6 ####[facility]ORATORYCLIA [id number] [place] [address] [place] Chloride [Moles/Vol] 95 mmol/L Low 97-105 [facility] Comment on above: Order Comment: Speci men Type: BLOOD SPECIMENOrdering Facility: [facility] Address: [address] [address] Performed By: #### 2 4362-6 ####[facility]ORATORYCLIA [id number] [place] [address] [place] CO2 [Moles/Vol] 29 mmol/L Normal 22-30 [facility] Comment on above: Order Comment: Speci men Type: BLOOD SPECIMENOrdering Facility: [facility] Address: [address] [place] [address] Performed By: #### 2 4362-6 ####[facility]ORATORYCLIA [id number] [address] [place] Creatinine [Mass/Vol] 0.50 mg/dL Low 0.73-1.22 [facility] Comment on above: Order Comment: Speci men Type: BLOOD SPECIMENOrdering Facility: [facility] Address: [address] [place] [address] Performed By: #### 2 4362-6 ####[facility]ORATORYCLIA [id number] [address] ESTIMATED GLOMERULAR FILTRATION RATE 120 mL/min/1.73m??? Normal >=60 [facility] Comment on above: Order Comment: Speci men Type: BLOOD SPECIMENOrdering Facility: [facility] Address: [address] [place] [address] Result Comment: Lola mated Glomerular Filtration Rate (eGFR) is calculated using the 2020 CKD-EPI creatinine equation. This equation utilizes serum creatinine, sex, and age as parameters. The creatinine assay has traceable calibration to isotope dilution-mass spectrometry. Refer to KDIGO guidelines for clinical interpretation. In patients with unstable renal function, e.g. those with acute kidney injury, the eGFR may not accurately reflect actual GFR. Performed By: #### 2 4362-6 ####[facility]ITALCLIA [id number] [place] [address] [place] Glucose [Mass/Vol] 239 mg/dL High 74-99 [facility] Comment on above: Order Comment: Doroteo zavala Type: BLOOD SPECIMENOrdering Facility: [facility] Address: [address] [address] Result Comment: The [place] [employer] (ADA) provides guidance for cutoff values for fasting glucose and random glucose. The ADA defines fasting as no caloric intake for at least 8 hours. Fasting plasma glucose results between 100 to 125 mg/dL indicate increased risk for diabetes (prediabetes).Fasting plasma glucose results greater than or equal to 126 mg/dL meet the criteria for diagnosis of diabetes. In the absence of unequivocal hyperglycemia, results should be confirmed by repeat testing. In a patient with classic symptoms of hyperglycemia or hyperglycemic crisis, random plasma glucose results greater than or equal to 200 mg/dL meet the criteria for diagnosis of diabetes.Reference: Standards of Medical Care in Diabetes 2016, [place] [employer]. Diabetes Care. 2016.39(Suppl 1). Performed By: #### 2 4362-6 ####[facility]ITALCLIA [id number] [place] [address] [place] Phosphate [Mass/Vol] 3.4 mg/dL Normal 2.7-4.8 [facility] Comment on above: Order Comment: Doroteo zavala Type: BLOOD SPECIMENOrdering Facility: [facility] Address: [address] [id number] Performed By: #### 2 4362-6 ####[facility]ORATORYCLIA [id number] [place] [address] [place] Potassium [Moles/Vol] 4.7 mmol/L Normal 3.7-5.1 [facility] Comment on above: Order Comment: Doroteo zavala Type: BLOOD SPECIMENOrdering Facility: [facility] Address: [address] [place] [address] Performed By: #### 2 4362-6 ####[facility]ORATORYCLIA [id number] [address] [place] Sodium [Moles/Vol] 134 mmol/L Low 136-144 [facility] Comment on above: Order Comment: Speci men Type: BLOOD SPECIMENOrdering Facility: [facility] Address: [address] [place] [address] Performed By: #### 2 4362-6 ####[facility]ORATORYCLIA [id number] [place] [address] [place] Urea nitrogen [Mass/Vol] 15 mg/dL Normal 9-24 [facility] Comment on above: Order Comment: Speci men Type: BLOOD SPECIMENOrdering Facility: [facility] Address: [address] [place] [address] Performed By: #### 2 4362-6 ####[facility]ORATORYCLIA [id number] [place] [address] [place] XR CHEST 1V FRONTALon 2022 XR CHEST 1V FRONTAL Normal [facility] CASE MANAGEMon 12-13-2022 CASE MANAGEM Normal [facility] CASE MANAGEM Normal [facility] CBC W Auto Differential pane l (Bld)on 12-13-2022 Basophils (Bld) [#/Vol] 0.03 10*3/uL Normal <0.11 [facility] Comment on above: Order Comment: Speci men Type: BLOOD SPECIMENOrdering Facility: [facility] Address: [address] [address] Performed By: #### 5 7021-8 ####[facility]ORATORYCLIA [id number] [address] [place] Basophils/100 WBC (Bld) 0.8 % Normal [facility] Comment on above: Order Comment: Speci men Type: BLOOD SPECIMENOrdering Facility: [facility] Address: [address] [place] [address] Performed By: #### 5 7021-8 ####[facility]ORATORYCLIA [id number] [address] Differential cell count method Nom (Bld) Auto Normal [facility] [facility] Comment on above: Order Comment: Speci men Type: BLOOD SPECIMENOrdering Facility: [facility] Address: [address] [place] [address] Performed By: #### 5 7021-8 ####[facility] LABORATORYCLIA [id number] [address] Eosinophils (Bld) [#/Vol] 0.07 10*3/uL Normal <0.46 [facility] Comment on above: Order Comment: Speci men Type: BLOOD SPECIMENOrdering Facility: [facility] Address: [address] [place] [address] Performed By: #### 5 7021-8 ####[facility] LABORATORYCLIA [id number] [address] Eosinophils/100 WBC (Bld) 2.0 % Normal [facility] Comment on above: Order Comment: Speci men Type: BLOOD SPECIMENOrdering Facility: [facility] Address: [address] [place] [address] Performed By: #### 5 7021-8 ####[facility]ORATORYCLIA [id number] [address] [place] Erythrocyte distribution width (RBC) [Ratio] 17.9 % High 11.5-15.0 [facility] Comment on above: Order Comment: Speci men Type: BLOOD SPECIMENOrdering Facility: [facility] Address: [address] [place] [address] Performed By: #### 5 7021-8 ####[facility]ORATORYCLIA [id number] [address] Hematocrit (Bld) [Volume fraction] 47.6 % Normal 39.0-51.0 [facility] Comment on above: Order Comment: Speci men Type: BLOOD SPECIMENOrdering Facility: [facility] Address: [address] [address] Performed By: #### 5 7021-8 ####[facility]ATORYCLIA [id number] [address] [place] Hemoglobin (Bld) [Mass/Vol] 13.4 g/dL Normal 13.0-17.0 [facility] Comment on above: Order Comment: Speci men Type: BLOOD SPECIMENOrdering Facility: [facility] Address: [address] [address] Performed By: #### 5 7021-8 ####[facility]ATORYCLIA [id number] [address] [place] Immature granulocytes (Bld) [#/Vol] 10*3/uL Normal <0.10 [facility] Comment on above: Order Comment: Speci men Type: BLOOD SPECIMENOrdering Facility: [facility] Address: [address] [place] [address] Performed By: #### 5 7021-8 ####[facility]ORATORYCLIA [id number] [address] [place] Immature granulocytes/100 WBC (Bld) 0.3 % Normal [facility] Comment on above: Order Comment: Speci men Type: BLOOD SPECIMENOrdering Facility: [facility] Address: [address] [place] [address] Performed By: #### 5 7021-8 ####[facility]ATORYCLIA [id number] [place] [address] [place] Lymphocytes (Bld) [#/Vol] 0.85 10*3/uL Low 1.00-4.00 [facility] Comment on above: Order Comment: Speci men Type: BLOOD SPECIMENOrdering Facility: [facility] Address: [address] [place] [address] Performed By: #### 5 7021-8 ####[facility]ATORYCLIA [id number] [address] [place] Lymphocytes/100 WBC (Bld) 23.9 % Normal [facility] Comment on above: Order Comment: Speci men Type: BLOOD SPECIMENOrdering Facility: [facility] Address: [address] [place] [address] Performed By: #### 5 7021-8 ####[facility]ORATORYCLIA [id number] [address] [place] [facility] MCH (RBC) [Entitic mass] 23.0 pg Low 26.0-34.0 [facility] Comment on above: Order Comment: Speci men Type: BLOOD SPECIMENOrdering Facility: [facility] Address: [address] [place] [address] Performed By: #### 5 7021-8 ####[facility]ORATORYCLIA [id number] [address] [place] MCHC (RBC) [Mass/Vol] 28.2 g/dL Low 30.5-36.0 [facility] Comment on above: Order Comment: Speci men Type: BLOOD SPECIMENOrdering Facility: [facility] Address: [address] [place] [address] Performed By: #### 5 7021-8 ####[facility]ORATORYCLIA [id number] [address] [place] MCV (RBC) [Entitic vol] 81.8 fL Normal 80.0-100.0 [facility] Comment on above: Order Comment: Speci men Type: BLOOD SPECIMENOrdering Facility: [facility] Address: [address] [place] [address] Performed By: #### 5 7021-8 ####[facility]ORATORYCLIA [id number] [address] Monocytes (Bld) [#/Vol] 0.30 10*3/uL Normal <0.87 [facility] Comment on above: Order Comment: Speci men Type: BLOOD SPECIMENOrdering Facility: [facility] Address: [address] [place] [address] Performed By: #### 5 7021-8 ####[facility]ORATORYCLIA [id number] [address] [place] Monocytes/100 WBC (Bld) 8.5 % Normal [facility] Comment on above: Order Comment: Speci men Type: BLOOD SPECIMENOrdering Facility: [facility] Address: [address] [place] [address] Performed By: #### 5 7021-8 ####[facility]ATORYCLIA [id number] [place] [address] [place] Neutrophils (Bld) [#/Vol] 2.29 10*3/uL Normal 1.45-7.50 [facility] Comment on above: Order Comment: Speci men Type: BLOOD SPECIMENOrdering Facility: [facility] Address: [address] [place] [address] Performed By: #### 5 7021-8 ####[facility]ORATORYCLIA [id number] [address] [place] Neutrophils/100 WBC (Bld) 64.5 % Normal [facility] Comment on above: Order Comment: Speci men Type: BLOOD SPECIMENOrdering Facility: [facility] Address: [address] [place] [address] Performed By: #### 5 7021-8 ####[facility]ORATORYCLIA [id number] [place] [address] [place] Nucleated RBC (Bld) [#/Vol] 10*3/uL Normal <0.01 [facility] Comment on above: Order Comment: Speci men Type: BLOOD SPECIMENOrdering Facility: [facility] Address: [address] [place] [address] Performed By: #### 5 7021-8 ####[facility]ATORYCLIA [id number] [address] [place] Nucleated RBC/100 WBC (Bld) [Ratio] 0.0 /100 WBC Normal [facility] Comment on above: Order Comment: Speci men Type: BLOOD SPECIMENOrdering Facility: [facility] Address: [address] [place] [address] Performed By: #### 5 7021-8 ####[facility]ORATORYCLIA [id number] [place] [address] [place] Platelet mean volume (Bld) [Entitic vol] 8.9 fL Low 9.0-12.7 [facility] Comment on above: Order Comment: Speci men Type: BLOOD SPECIMENOrdering Facility: [facility] Address: [address] [place] [address] Performed By: #### 5 7021-8 ####[facility]ORATORYCLIA [id number] [place] [address] [place] Platelets (Bld) [#/Vol] 195 10*3/uL Normal 150-400 [facility] Comment on above: Order Comment: Speci men Type: BLOOD SPECIMENOrdering Facility: [facility] Address: [address] [place] [address] Performed By: #### 5 7021-8 ####[facility]ORATORYCLIA [id number] [address] [place] RBC (Bld) [#/Vol] 5.82 10*6/uL Normal 4.20-6.00 [facility] Comment on above: Order Comment: Speci men Type: BLOOD SPECIMENOrdering Facility: [facility] Address: [address] [place] [address] Performed By: #### 5 7021-8 ####[facility]ORATORYCLIA [id number] [place] [address] [place] WBC (Bld) [#/Vol] 3.55 10*3/uL Low 3.70-11.00 [facility] Comment on above: Order Comment: Speci men Type: BLOOD SPECIMENOrdering Facility: [facility] Address: [address] [place] [address] Performed By: #### 5 7021-8 ####[facility]ORATORYCLIA [id number] [address] [place] CONSULT PROGon 12-13-2022 CONSULT PROG Normal [facility] Renal function 2000 panelon 12-13-2022 Albumin [Mass/Vol] 3.3 g/dL Low 3.9-4.9 [facility] Comment on above: Order Comment: Speci men Type: BLOOD SPECIMENOrdering Facility: [facility] Address: [address] [place] [address] Performed By: #### 2 4362-6 ####[facility]ATORYCLIA [id number] [place] [address] [place] Anion gap [Moles/Vol] 8 mmol/L Low 9-18 [facility] Comment on above: Order Comment: Speci men Type: BLOOD SPECIMENOrdering Facility: [facility] Address: [address] [place] [address] Performed By: #### 2 4362-6 ####[facility]ORATORYCLIA [id number] [place] [address] [place] Calcium [Mass/Vol] 8.5 mg/dL Normal 8.5-10.2 [facility] Comment on above: Order Comment: Speci men Type: BLOOD SPECIMENOrdering Facility: [facility] Address: [address] [place] [address] Performed By: #### 2 4362-6 ####[facility]ORATORYCLIA [id number] [place] [address] [place] Chloride [Moles/Vol] 95 mmol/L Low 97-105 [facility] Comment on above: Order Comment: Speci men Type: BLOOD SPECIMENOrdering Facility: [facility] Address: [address] [place] [address] Performed By: #### 2 4362-6 ####[facility]ATORYCLIA [id number] [place] [address] [place] CO2 [Moles/Vol] 32 mmol/L High 22-30 [facility] Comment on above: Order Comment: Speci men Type: BLOOD SPECIMENOrdering Facility: [facility] Address: [address] [place] [address] Performed By: #### 2 4362-6 ####[facility]ATORYCLIA [id number] [address] STATES OF [facility] Creatinine [Mass/Vol] 0.51 mg/dL Low 0.73-1.22 [facility] Comment on above: Order Comment: Doroteo zavala Type: BLOOD SPECIMENOrdering Facility: [facility] Address: [address] [place] [address] Performed By: #### 2 4362-6 ####[facility]INGTONIA [id number] [address] ESTIMATED GLOMERULAR FILTRATION RATE 120 mL/min/1.73m??? Normal >=60 [facility] Comment on above: Order Comment: Doroteo zavala Type: BLOOD SPECIMENOrdering Facility: [facility] Address: [address] [place] [address] Result Comment: Lola mated Glomerular Filtration Rate (eGFR) is calculated using the 2020 CKD-EPI creatinine equation. This equation utilizes serum creatinine, sex, and age as parameters. The creatinine assay has traceable calibration to isotope dilution-mass spectrometry. Refer to KDIGO guidelines for clinical interpretation. In patients with unstable renal function, e.g. those with acute kidney injury, the eGFR may not accurately reflect actual GFR. Performed By: #### 2 4362-6 ####[facility]INGTONIA [id number] [address] Glucose [Mass/Vol] 161 mg/dL High 74-99 [facility] Comment on above: Order Comment: Doroteo lucas Type: BLOOD SPECIMENOrdering Facility: [facility] Address: [address] [place] [address] Result Comment: The [place] [employer] (ADA) provides guidance for cutoff values for fasting glucose and random glucose. The ADA defines fasting as no caloric intake for at least 8 hours. Fasting plasma glucose results between 100 to 125 mg/dL indicate increased risk for diabetes (prediabetes).Fasting plasma glucose results greater than or equal to 126 mg/dL meet the criteria for diagnosis of diabetes. In the absence of unequivocal hyperglycemia, results should be confirmed by repeat testing. In a patient with classic symptoms of hyperglycemia or hyperglycemic crisis, random plasma glucose results greater than or equal to 200 mg/dL meet the criteria for diagnosis of diabetes.Reference: Standards of Medical Care in Diabetes 2016, [place] [employer]. Diabetes Care. 2016.39(Suppl 1). Performed By: #### 2 4362-6 ####[facility]ORATORYCLIA [id number] [address] [place] Phosphate [Mass/Vol] 3.0 mg/dL Normal 2.7-4.8 [facility] Comment on above: Order Comment: Speci men Type: BLOOD SPECIMENOrdering Facility: [facility] Address: [address] [place] [address] Performed By: #### 2 4362-6 ####[facility]ORATORYCLIA [id number] [address] [place] Potassium [Moles/Vol] 4.1 mmol/L Normal 3.7-5.1 [facility] Comment on above: Order Comment: Speci men Type: BLOOD SPECIMENOrdering Facility: [facility] Address: [address] [place] [address] Performed By: #### 2 4362-6 ####[facility]ORATORYCLIA [id number] [address] STATES [facility] Sodium [Moles/Vol] 135 mmol/L Low 136-144 [facility] Comment on above: Order Comment: Speci men Type: BLOOD SPECIMENOrdering Facility: [facility] Address: [address] [place] [address] Performed By: #### 2 4362-6 ####[facility]ORATORYCLIA [id number] [address] [place] Urea nitrogen [Mass/Vol] 15 mg/dL Normal 9-24 [facility] Comment on above: Order Comment: Speci men Type: BLOOD SPECIMENOrdering Facility: [facility] Address: [address] [place] [address] Performed By: #### 2 4362-6 ####[facility]ORATORYCLIA [id number] [place] [address] [place] ALLIED HEALTHon 12-12-2022 ALLIED HEALTH Normal [facility] Renal function 2000 panelon 12-12-2022 Albumin [Mass/Vol] 3.1 g/dL Low 3.9-4.9 [facility] Comment on above: Order Comment: Speci men Type: BLOOD SPECIMENOrdering Facility: [facility] Address: [address] [place] [address] Performed By: #### 2 4362-6 ####[facility]ORATORYCLIA [id number] [place] [address] [place] Anion gap [Moles/Vol] 8 mmol/L Low 9-18 [facility] Comment on above: Order Comment: Speci men Type: BLOOD SPECIMENOrdering Facility: [facility] Address: [address] [place] [address] Performed By: #### 2 4362-6 ####[facility]ORATORYCLIA [id number] [place] [address] [place] Calcium [Mass/Vol] 8.6 mg/dL Normal 8.5-10.2 [facility] Comment on above: Order Comment: Speci men Type: BLOOD SPECIMENOrdering Facility: [facility] Address: [address] [place] [address] Performed By: #### 2 4362-6 ####[facility]ORATORYCLIA [id number] [place] [address] [place] Chloride [Moles/Vol] 97 mmol/L Normal 97-105 [facility] Comment on above: Order Comment: Speci men Type: BLOOD SPECIMENOrdering Facility: [facility] Address: [address] [place] [address] Performed By: #### 2 4362-6 ####[facility]ORATORYCLIA [id number] [place] [address] [place] CO2 [Moles/Vol] 32 mmol/L High 22-30 [facility] Comment on above: Order Comment: Speci men Type: BLOOD SPECIMENOrdering Facility: [facility] Address: [address] [place] [address] Performed By: #### 2 4362-6 ####[facility]ITALCLIA [id number] [address] STATES OF [facility] Creatinine [Mass/Vol] 0.60 mg/dL Low 0.73-1.22 [facility] Comment on above: Order Comment: Doroteo zavala Type: BLOOD SPECIMENOrdering Facility: [facility] Address: [address] [address] Performed By: #### 2 4362-6 ####[facility]ORATORYCLIA [id number] [address] ESTIMATED GLOMERULAR FILTRATION RATE 114 mL/min/1.73m??? Normal >=60 [facility] Comment on above: Order Comment: Doroteo zavala Type: BLOOD SPECIMENOrdering Facility: [facility] Address: [address] [place] [address] Result Comment: Lola mated Glomerular Filtration Rate (eGFR) is calculated using the 2020 CKD-EPI creatinine equation. This equation utilizes serum creatinine, sex, and age as parameters. The creatinine assay has traceable calibration to isotope dilution-mass spectrometry. Refer to KDIGO guidelines for clinical interpretation. In patients with unstable renal function, e.g. those with acute kidney injury, the eGFR may not accurately reflect actual GFR. Performed By: #### 2 4362-6 ####[facility]ORATORYCLIA [id number] [address] [place] Glucose [Mass/Vol] 126 mg/dL High 74-99 [facility] Comment on above: Order Comment: Doroteo zavala Type: BLOOD SPECIMENOrdering Facility: [facility] Address: [address] [address] Result Comment: The [place] Diabetes Association (ADA) provides guidance for cutoff values for fasting glucose and random glucose. The ADA defines fasting as no caloric intake for at least 8 hours. Fasting plasma glucose results between 100 to 125 mg/dL indicate increased risk for diabetes (prediabetes).Fasting plasma glucose results greater than or equal to 126 mg/dL meet the criteria for diagnosis of diabetes. In the absence of unequivocal hyperglycemia, results should be confirmed by repeat testing. In a patient with classic symptoms of hyperglycemia or hyperglycemic crisis, random plasma glucose results greater than or equal to 200 mg/dL meet the criteria for diagnosis of diabetes.Reference: Standards of Medical Care in Diabetes 2016, [place] [employer]. Diabetes Care. 2016.39(Suppl 1). Performed By: #### 2 4362-6 ####[facility]ORATORYCLIA [id number] [place] [address] [place] Phosphate [Mass/Vol] 3.8 mg/dL Normal 2.7-4.8 [facility] Comment on above: Order Comment: Speci men Type: BLOOD SPECIMENOrdering Facility: [facility] Address: [address] [place] [address] Performed By: #### 2 4362-6 ####[facility]ORATORYCLIA [id number] [place] [address] [place] Potassium [Moles/Vol] 4.0 mmol/L Normal 3.7-5.1 [facility] Comment on above: Order Comment: Speci men Type: BLOOD SPECIMENOrdering Facility: [facility] Address: [address] [address] Performed By: #### 2 4362-6 ####[facility]ORATORYCLIA [id number] [address] [place] Sodium [Moles/Vol] 137 mmol/L Normal 136-144 [facility] Comment on above: Order Comment: Speci men Type: BLOOD SPECIMENOrdering Facility: [facility] Address: [address] [address] Performed By: #### 2 4362-6 ####[facility]ORATORYCLIA [id number] [place] [address] [place] Urea nitrogen [Mass/Vol] 17 mg/dL Normal 9-24 [facility] Comment on above: Order Comment: Speci men Type: BLOOD SPECIMENOrdering Facility: [facility] Address: [address] [address] Performed By: #### 2 4362-6 ####[facility]ORATORYCLIA [id number] [address] [place] THERAPY NTon 12-12-2022 THERAPY NT Normal [facility] THERAPY NT Normal [facility] XR CHEST 1V FRONTALon 2022 XR CHEST 1V FRONTAL Normal [facility] ALLIED HEALTHon 12-11-2022 ALLIED HEALTH Normal [facility] Renal function 2000 panelon 12-11-2022 Albumin [Mass/Vol] 3.0 g/dL Low 3.9-4.9 [facility] Comment on above: Order Comment: Speci men Type: BLOOD SPECIMENOrdering Facility: [facility] Address: [address] [place] [address] Performed By: #### 2 4362-6 ####[facility]ORATORYCLIA [id number] [address] [place] Anion gap [Moles/Vol] 9 mmol/L Normal 9-18 [facility] Comment on above: Order Comment: Speci men Type: BLOOD SPECIMENOrdering Facility: [facility] Address: [address] [place] [address] Performed By: #### 2 4362-6 ####[facility]ORATORYCLIA [id number] [place] [address] [place] Calcium [Mass/Vol] 8.4 mg/dL Low 8.5-10.2 [facility] Comment on above: Order Comment: Speci men Type: BLOOD SPECIMENOrdering Facility: [facility] Address: [address] [place] [address] Performed By: #### 2 4362-6 ####[facility]ORATORYCLIA [id number] [place] [address] [place] Chloride [Moles/Vol] 97 mmol/L Normal 97-105 [facility] Comment on above: Order Comment: Speci men Type: BLOOD SPECIMENOrdering Facility: [facility] Address: [address] [place] [address] Performed By: #### 2 4362-6 ####[facility]ORATORYCLIA [id number] [place] [address] [place] CO2 [Moles/Vol] 31 mmol/L High 22-30 [facility] Comment on above: Order Comment: Speci men Type: BLOOD SPECIMENOrdering Facility: [facility] Address: [address] [address] Performed By: #### 2 4362-6 ####[facility]ORATORYCLIA [id number] [address] OF [facility] Creatinine [Mass/Vol] 0.64 mg/dL Low 0.73-1.22 [facility] Comment on above: Order Comment: Speci men Type: BLOOD SPECIMENOrdering Facility: [facility] Address: [address] [place] [address] Performed By: #### 2 4362-6 ####[facility]IA [id number] [address] ESTIMATED GLOMERULAR FILTRATION RATE 112 mL/min/1.73m??? Normal >=60 [facility] Comment on above: Order Comment: Speci men Type: BLOOD SPECIMENOrdering Facility: [facility] Address: [address] [place] [address] Result Comment: Lola mated Glomerular Filtration Rate (eGFR) is calculated using the 2020 CKD-EPI creatinine equation. This equation utilizes serum creatinine, sex, and age as parameters. The creatinine assay has traceable calibration to isotope dilution-mass spectrometry. Refer to KDIGO guidelines for clinical interpretation. In patients with unstable renal function, e.g. those with acute kidney injury, the eGFR may not accurately reflect actual GFR. Performed By: #### 2 4362-6 ####[facility]ORATORYCLIA [id number] [address] OF [facility] Glucose [Mass/Vol] 128 mg/dL High 74-99 [facility] Comment on above: Order Comment: Speci lucas Type: BLOOD SPECIMENOrdering Facility: [facility] Address: [address] [place] [address] Result Comment: The [place] Diabetes Association (ADA) provides guidance for cutoff values for fasting glucose and random glucose. The ADA defines fasting as no caloric intake for at least 8 hours. Fasting plasma glucose results between 100 to 125 mg/dL indicate increased risk for diabetes (prediabetes).Fasting plasma glucose results greater than or equal to 126 mg/dL meet the criteria for diagnosis of diabetes. In the absence of unequivocal hyperglycemia, results should be confirmed by repeat testing. In a patient with classic symptoms of hyperglycemia or hyperglycemic crisis, random plasma glucose results greater than or equal to 200 mg/dL meet the criteria for diagnosis of diabetes.Reference: Standards of Medical Care in Diabetes 2016, [place] [employer]. Diabetes Care. 2016.39(Suppl 1). Performed By: #### 2 4362-6 ####[facility]ORATORYCLIA [id number] [place] [address] [place] Phosphate [Mass/Vol] 4.2 mg/dL Normal 2.7-4.8 [facility] Comment on above: Order Comment: Speci men Type: BLOOD SPECIMENOrdering Facility: [facility] Address: [address] [place] [address] Performed By: #### 2 4362-6 ####[facility]ORATORYCLIA [id number] [place] [address] [place] Potassium [Moles/Vol] 4.0 mmol/L Normal 3.7-5.1 [facility] Comment on above: Order Comment: Salinai men Type: BLOOD SPECIMENOrdering Facility: [facility] Address: [address] [place] [address] Performed By: #### 2 4362-6 ####[facility] LABORATORYCLIA [id number] [place] [address] [place] Sodium [Moles/Vol] 137 mmol/L Normal 136-144 [facility] Comment on above: Order Comment: Speci men Type: BLOOD SPECIMENOrdering Facility: [facility] Address: [address] [place] [address] Performed By: #### 2 4362-6 ####[facility] LABORATORYCLIA [id number] [place] [address] [place] Urea nitrogen [Mass/Vol] 17 mg/dL Normal 9-24 [facility] Comment on above: Order Comment: Speci men Type: BLOOD SPECIMENOrdering Facility: [facility] Address: [address] [place] [address] Performed By: #### 2 4362-6 ####[facility] LABORATORYCLIA [id number] [place] [address] [place] XR CHEST 1V FRONTALon 2022 XR CHEST 1V FRONTAL Normal [facility] CASE MANAGEMon 12-10-2022 CASE MANAGEM Normal [facility] CBC W Auto Differential pane l (Bld)on 12-10-2022 Basophils (Bld) [#/Vol] 0.09 10*3/uL Normal <0.11 [facility] Comment on above: Order Comment: Speci men Type: BLOOD SPECIMENOrdering Facility: [facility] Address: [address] [place] [address] Performed By: #### 5 7021-8, 42393-0 ####[facility]ORATORYCLIA [id number] [address] [place] Basophils/100 WBC (Bld) 0.9 % Normal [facility] Comment on above: Order Comment: Speci men Type: BLOOD SPECIMENOrdering Facility: [facility] Address: [address] [place] [address] Performed By: #### 5 7021-8, 77089-3 ####[facility]ORATORYCLIA [id number] [place] [address] [place] Differential cell count method Nom (Bld) Auto Normal [facility] Comment on above: Order Comment: Speci men Type: BLOOD SPECIMENOrdering Facility: [facility] Address: [address] [place] [address] Performed By: #### 5 7021-8, 36239-7 ####[facility]ORATORYCLIA [id number] [address] [place] Eosinophils (Bld) [#/Vol] 0.27 10*3/uL Normal <0.46 [facility] Comment on above: Order Comment: Speci men Type: BLOOD SPECIMENOrdering Facility: [facility] Address: [address] [address] Performed By: #### 5 7021-8, 11325-6 ####[facility]ORATORYCLIA [id number] [address] Eosinophils/100 WBC (Bld) 2.6 % Normal [facility] Comment on above: Order Comment: Speci men Type: BLOOD SPECIMENOrdering Facility: [facility] Address: [address] [address] Performed By: #### 5 7021-8, 79329-4 ####[facility]ORATORYCLIA [id number] [address] Erythrocyte distribution width (RBC) [Ratio] 16.4 % High 11.5-15.0 [facility] Comment on above: Order Comment: Speci men Type: BLOOD SPECIMENOrdering Facility: [facility] Address: [address] [place] [address] Performed By: #### 5 7021-8, 59504-5 ####[facility]ORATORYCLIA [id number] [address] STATES OF [facility] Hematocrit (Bld) [Volume fraction] 28.8 % Low 39.0-51.0 [facility] Comment on above: Order Comment: Speci men Type: BLOOD SPECIMENOrdering Facility: [facility] Address: [address] [place] [address] Performed By: #### 5 7021-8, 84225-9 ####[facility]ORATORYCLIA [id number] [address] [place] Hemoglobin (Bld) [Mass/Vol] 8.7 g/dL Low 13.0-17.0 [facility] Comment on above: Order Comment: Speci men Type: BLOOD SPECIMENOrdering Facility: [facility] Address: [address] [place] [address] Performed By: #### 5 7021-8, 50954-2 ####[facility]ATORYCLIA [id number] [address] [place] Immature granulocytes (Bld) [#/Vol] 0.13 10*3/uL High <0.10 [facility] Comment on above: Order Comment: Speci men Type: BLOOD SPECIMENOrdering Facility: [facility] Address: [address] [place] [address] Performed By: #### 5 7021-8, 95662-6 ####[facility]ORATORYCLIA [id number] [address] Immature granulocytes/100 WBC (Bld) 1.2 % Normal [facility] Comment on above: Order Comment: Speci men Type: BLOOD SPECIMENOrdering Facility: [facility] Address: [address] [place] [address] Performed By: #### 5 7021-8, 24059-1 ####[facility]ORATORYCLIA [id number] [address] [place] Lymphocytes (Bld) [#/Vol] 2.54 10*3/uL Normal 1.00-4.00 [facility] Comment on above: Order Comment: Speci men Type: BLOOD SPECIMENOrdering Facility: [facility] Address: [address] [place] [address] Performed By: #### 5 7021-8, 83886-0 ####[facility]ORATORYCLIA [id number] [address] Lymphocytes/100 WBC (Bld) 24.1 % Normal [facility] Comment on above: Order Comment: Speci men Type: BLOOD SPECIMENOrdering Facility: [facility] Address: [address] [place] [address] Performed By: #### 5 7021-8, 09904-3 ####[facility]ORATORYCLIA [id number] [address] [place] MCH (RBC) [Entitic mass] 24.4 pg Low 26.0-34.0 [facility] Comment on above: Order Comment: Speci men Type: BLOOD SPECIMENOrdering Facility: [facility] Address: [address] [place] [address] Performed By: #### 5 7021-8, 38197-9 ####[facility]ORATORYCLIA [id number] [address] [place] MCHC (RBC) [Mass/Vol] 30.2 g/dL Low 30.5-36.0 [facility] Comment on above: Order Comment: Speci men Type: BLOOD SPECIMENOrdering Facility: [facility] Address: [address] [place] [address] Performed By: #### 5 7021-8, 43133-2 ####[facility] LABORATORYCLIA [id number] [address] STATES OF [facility] MCV (RBC) [Entitic vol] 80.9 fL Normal 80.0-100.0 [facility] Comment on above: Order Comment: Speci men Type: BLOOD SPECIMENOrdering Facility: [facility] Address: [address] [place] [address] Performed By: #### 5 7021-8, 51732-2 ####[facility]ORATORYCLIA [id number] [address] [place] Monocytes (Bld) [#/Vol] 0.98 10*3/uL High <0.87 [facility] Comment on above: Order Comment: Speci men Type: BLOOD SPECIMENOrdering Facility: [facility] Address: [address] [place] [address] Performed By: #### 5 7021-8, 38691-8 ####[facility]ORATORYCLIA [id number] [address] Monocytes/100 WBC (Bld) 9.3 % Normal [facility] Comment on above: Order Comment: Speci men Type: BLOOD SPECIMENOrdering Facility: [facility] Address: [address] [place] [address] Performed By: #### 5 7021-8, 82670-8 ####[facility] LABORATORYCLIA [id number] [place] [address] [place] Neutrophils (Bld) [#/Vol] 6.51 10*3/uL Normal 1.45-7.50 [facility] Comment on above: Order Comment: Speci men Type: BLOOD SPECIMENOrdering Facility: [facility] Address: [address] [place] [address] Performed By: #### 5 7021-8, 38856-7 ####[facility]ORATORYCLIA [id number] [address] [place] Neutrophils/100 WBC (Bld) 61.9 % Normal [facility] Comment on above: Order Comment: Speci men Type: BLOOD SPECIMENOrdering Facility: [facility] Address: [address] [place] [address] Performed By: #### 5 7021-8, 09363-3 ####[facility]ORATORYCLIA [id number] [place] [address] [place] Nucleated RBC (Bld) [#/Vol] 10*3/uL Normal <0.01 [facility] Comment on above: Order Comment: Speci men Type: BLOOD SPECIMENOrdering Facility: [facility] Address: [address] [place] [address] Performed By: #### 5 7021-8, 78448-7 ####[facility]ORATORYCLIA [id number] [address] [place] Nucleated RBC/100 WBC (Bld) [Ratio] 0.0 /100 WBC Normal [facility] Comment on above: Order Comment: Speci men Type: BLOOD SPECIMENOrdering Facility: [facility] Address: [address] [place] [address] Performed By: #### 5 7021-8, 22934-7 ####[facility]ORATORYCLIA [id number] [address] [place] Platelet mean volume (Bld) [Entitic vol] 9.2 fL Normal 9.0-12.7 [facility] Comment on above: Order Comment: Speci men Type: BLOOD SPECIMENOrdering Facility: [facility] Address: [address] [place] [address] Performed By: #### 5 7021-8, 51249-2 ####[facility]ORATORYCLIA [id number] [address] OF [facility] Platelets (Bld) [#/Vol] 425 10*3/uL High 150-400 [facility] Comment on above: Order Comment: Speci men Type: BLOOD SPECIMENOrdering Facility: [facility] Address: [address] [place] [address] Performed By: #### 5 7021-8, 04119-3 ####[facility]ORATORYCLIA [id number] [address] RBC (Bld) [#/Vol] 3.56 10*6/uL Low 4.20-6.00 [facility] Comment on above: Order Comment: Speci men Type: BLOOD SPECIMENOrdering Facility: [facility] Address: [address] [place] [address] Performed By: #### 5 7021-8, 33103-5 ####[facility]ORATORYCLIA [id number] [address] WBC (Bld) [#/Vol] 10.52 10*3/uL Normal 3.70-11.00 [facility] Comment on above: Order Comment: Speci men Type: BLOOD SPECIMENOrdering Facility: [facility] Address: [address] [place] [address] Performed By: #### 5 7021-8, 53769-6 ####[facility]ATORYCLIA [id number] [address] ECG COMPLETEon 12-10-2022 ECG COMPLETE Normal [facility] HbA1c (Bld)on 12-10-2022 Average glucose Estimated from glycated hemoglobin (Bld) [Mass/Vol] 171 mg/dL Normal [facility] Comment on above: Order Comment: Speci men Type: BLOOD SPECIMENOrdering Facility: [facility] Address: [address] [address] Result Comment: eAG: (Estimated average glucose) is a calculated value from HgbA1c and is guest services representative of the average blood glucose level in the last 2-3 month period. Performed By: #### 5 7021-8, 63337-8 ####[facility]ORATORYCLIA [id number] [address] STATES OF [facility] HbA1c (Bld) [Mass fraction] 7.6 % High 4.3-5.6 [facility] Comment on above: Order Comment: Speci [facility] Type: BLOOD SPECIMENOrdering Facility: [facility] Address: [address] [address] Result Comment: [facility] ican Diabetes Association guidelines indicate that patients with HgbA1c in the range 5.7-6.4% are at increased risk for development of diabetes, and intervention by lifestyle modification may be beneficial. HgbA1c greater or equal to 6.5% is considered diagnostic of diabetes. Performed By: #### 5 7021-8, 55160-8 ####[facility]ORATORYCLIA [id number] [place] [address] [place] LDH SerPl-cCncon 12-10-2022 LDH [Catalytic activity/Vol] 252 U/L High 135-225 [facility] Comment on above: Order Comment: Speci [facility] Type: BLOOD SPECIMENOrdering Facility: [facility] Address: [address] [address] Performed By: #### 2 532-0 ####[facility]ORATORYCLIA [id number] [place] [address] [place] Prot SerPl-mCncon 12-10-2022 Protein [Mass/Vol] 6.8 g/dL Normal 6.3-8.0 [facility] Comment on above: Order Comment: Speci men Type: BLOOD SPECIMENOrdering Facility: [facility] Address: [address] [address] Performed By: #### 2 4362-6, 2885-2 ####[facility]ORATORYCLIA [id number] [place] [address] [place] Renal function 2000 panelon 12-10-2022 Albumin [Mass/Vol] 2.9 g/dL Low 3.9-4.9 [facility] Comment on above: Order Comment: Speci men Type: BLOOD SPECIMENOrdering Facility: [facility] Address: [address] [place] [address] Performed By: #### 2 4362-6, 288-2 ####[facility]ORATORYCLIA [id number] [address] [place] Anion gap [Moles/Vol] 10 mmol/L Normal 9-18 [facility] Comment on above: Order Comment: Speci men Type: BLOOD SPECIMENOrdering Facility: [facility] Address: [address] [place] [address] Performed By: #### 2 4362-6, 2884-2 ####[facility]ORATORYCLIA [id number] [address] [place] Calcium [Mass/Vol] 8.7 mg/dL Normal 8.5-10.2 [facility] Comment on above: Order Comment: Speci men Type: BLOOD SPECIMENOrdering Facility: [facility] Address: [address] [place] [address] Performed By: #### 2 4362-6, 2884-2 ####[facility]ORATORYCLIA [id number] [place] [address] [place] Chloride [Moles/Vol] 95 mmol/L Low 97-105 [facility] Comment on above: Order Comment: Speci men Type: BLOOD SPECIMENOrdering Facility: [facility] Address: [address] [place] [address] Performed By: #### 2 4362-6, 2884-2 ####[facility]ORATORYCLIA [id number] [place] [address] [place] CO2 [Moles/Vol] 29 mmol/L Normal 22-30 [facility] Comment on above: Order Comment: Speci men Type: BLOOD SPECIMENOrdering Facility: [facility] Address: [address] [address] Performed By: #### 2 4362-6, 2885-2 ####[facility]LOOMINGTONIA [id number] [address] STATES OF [facility] Creatinine [Mass/Vol] 0.66 mg/dL Low 0.73-1.22 [facility] Comment on above: Order Comment: Speci men Type: BLOOD SPECIMENOrdering Facility: [facility] Address: [address] [address] Performed By: #### 2 4362-6, 2885-2 ####[facility] B[facility]OMINGTONIA [id number] [address] ESTIMATED GLOMERULAR FILTRATION RATE 111 mL/min/1.73m??? Normal >=60 [facility] Comment on above: Order Comment: Doroteo men Type: BLOOD SPECIMENOrdering Facility: [facility] Address: [address] [place] [address] Result Comment: Lola mated Glomerular Filtration Rate (eGFR) is calculated using the 2020 CKD-EPI creatinine equation. This equation utilizes serum creatinine, sex, and age as parameters. The creatinine assay has traceable calibration to isotope dilution-mass spectrometry. Refer to KDIGO guidelines for clinical interpretation. In patients with unstable renal function, e.g. those with acute kidney injury, the eGFR may not accurately reflect actual GFR. Performed By: #### 2 4362-6, 2885-2 ####[facility] LABORATORYIA [id number] [address] [place] Glucose [Mass/Vol] 160 mg/dL High 74-99 [facility] Comment on above: Order Comment: Doroteo zavala Type: BLOOD SPECIMENOrdering Facility: [facility] Address: [address] [place] [address] Result Comment: The [place] Diabetes Association (ADA) provides guidance for cutoff values for fasting glucose and random glucose. The ADA defines fasting as no caloric intake for at least 8 hours. Fasting plasma glucose results between 100 to 125 mg/dL indicate increased risk for diabetes (prediabetes).Fasting plasma glucose results greater than or equal to 126 mg/dL meet the criteria for diagnosis of diabetes. In the absence of unequivocal hyperglycemia, results should be confirmed by repeat testing. In a patient with classic symptoms of hyperglycemia or hyperglycemic crisis, random plasma glucose results greater than or equal to 200 mg/dL meet the criteria for diagnosis of diabetes.Reference: Standards of Medical Care in Diabetes 2016, [place] Diabetes Association. Diabetes Care. 2016.39(Suppl 1). Performed By: #### 2 4362-6, 2884-2 ####[facility]ORATORYCLIA [id number] [place] [address] [place] Phosphate [Mass/Vol] 4.6 mg/dL Normal 2.7-4.8 [facility] Comment on above: Order Comment: Doroteo zavala Type: BLOOD SPECIMENOrdering Facility: [facility] Address: [address] [place] [address] Performed By: #### 2 436-, 2884-06 ####[facility]ORATORYCLIA [id number] [address] [place] Potassium [Moles/Vol] 4.2 mmol/L Normal 3.7-5.1 [facility] Comment on above: Order Comment: Doroteo zavala Type: BLOOD SPECIMENOrdering Facility: [facility] Address: [address] [place] [address] Performed By: #### 2 436-6, 2884-06 ####[facility]ORATORYCLIA [id number] [place] [address] [place] Sodium [Moles/Vol] 134 mmol/L Low 136-144 [facility] Comment on above: Order Comment: Doroteo zavala Type: BLOOD SPECIMENOrdering Facility: [facility] Address: [address] [place] [address] Performed By: #### 2 436-6, 2 ####[facility]ORATORYCLIA [id number] [place] [address] [place] Urea nitrogen [Mass/Vol] 18 mg/dL Normal 9-24 [facility] Comment on above: Order Comment: Speci men Type: BLOOD SPECIMENOrdering Facility: [facility] Address: [address] [place] [address] Performed By: #### 2 4362-6, 2885-2 ####[facility]ATORYCLIA [id number] [place] [address] [place] ALLIED HEALTHon 12-09-2022 ALLIED HEALTH Normal [facility] ALLIED HEALTH Normal [facility] BF MANUAL DIFFon 12-09-2022 DIF TTL, BODY FLUID 100 cells counted Normal [facility] Comment on above: Order Comment: Speci men Type: BODY FLUID SPECIMENOrdering Facility: [facility] Address: [address] [place] [address] Performed By: #### C CBF, [id number] ####[facility]ATORYCLIA [id number] [place] [address] [place] LYMPH%, BF 51 % High 18-36 [facility] Comment on above: Order Comment: Speci men Type: BODY FLUID SPECIMENOrdering Facility: [facility] Address: [address] [place] [address] Performed By: #### C CBF, [id number] ####[facility]ORATORYCLIA [id number] [place] [address] [place] MACRO%, BF 15 % Low 64-80 [facility] Comment on above: Order Comment: Speci men Type: BODY FLUID SPECIMENOrdering Facility: [facility] Address: [address] [place] [address] Performed By: #### C CBF, [id number] ####[facility]ORATORYCLIA [id number] [place] [address] [place] MESO %, BF 4 % High 0-2 [facility] Comment on above: Order Comment: Speci men Type: BODY FLUID SPECIMENOrdering Facility: [facility] Address: [address] [place] [address] Performed By: #### C CBF, [id number] ####[facility]ATORYCLIA [id number] [place] MONO% BF 12 % Normal [facility] Comment on above: Order Comment: Speci men Type: BODY FLUID SPECIMENOrdering Facility: [facility] Address: [address] [place] [address] Performed By: #### C CBF, [id number] ####[facility]ORATORYCLIA [id number] [place] [address] [place] NEUT%, BF 14 % High 0-1 [facility] Comment on above: Order Comment: Speci men Type: BODY FLUID SPECIMENOrdering Facility: [facility] Address: [address] [place] [address] Performed By: #### C CBF, [id number] ####[facility]ATORYCLIA [id number] [address] [place] OTHER CL%, BF 2 % Normal [facility] Comment on above: Order Comment: Speci men Type: BODY FLUID SPECIMENOrdering Facility: [facility] Address: [address] [place] [address] Result Comment: Basunique quirozs Performed By: #### C CBF, [id number] ####[facility]ATORYCLIA [id number] [address] [place] REAC LYMPH %, BF 2 % Normal [facility] Comment on above: Order Comment: Speci men Type: BODY FLUID SPECIMENOrdering Facility: [facility] Address: [address] [place] [address] Performed By: #### C CBF, [id number] ####[facility]ATORYCLIA [id number] [address] [place] BODY FLUID CELL COUNTon 07-2 Clarity (Unsp spec) Clear Normal Clear [facility] Comment on above: Order Comment: Speci men Type: BODY FLUID SPECIMENOrdering Facility: [facility] Address: [address] [place] [address] Performed By: #### C CBF, [id number] ####[facility]ATORYCLIA [id number] [address] Color (Body fld) Yellow Normal Yellow [facility] Comment on above: Order Comment: Speci men Type: BODY FLUID SPECIMENOrdering Facility: [facility] Address: [address] [place] [address] Performed By: #### C CBF, [id number] ####[facility]ORATORYCLIA [id number] [address] RBC Manual cnt (Body fld) [#/Vol] 31943 /uL High <2000 [facility] Comment on above: Order Comment: Speci men Type: BODY FLUID SPECIMENOrdering Facility: [facility] Address: [address] [place] [address] Performed By: #### C CBF, [id number] ####[facility]ORATORYCLIA [id number] [address] Specimen source Nom (Body fld) PLEURAL FLUID Normal [facility] Comment on above: Order Comment: Speci men Type: BODY FLUID SPECIMENOrdering Facility: [facility] Address: [address] [place] [address] Performed By: #### C CBF, [id number] ####[facility]ORATORYCLIA [id number] [address] WBC Manual cnt (Body fld) [#/Vol] 1109 /uL High <1000 [facility] Comment on above: Order Comment: Speci men Type: BODY FLUID SPECIMENOrdering Facility: [facility] Address: [address] [place] [address] Performed By: #### C CBF, [id number] ####[facility]ATORYCLIA [id number] [address] BRIEF OP NOTon 12-09-2022 BRIEF OP NOT Normal [facility] Bacteria Fld Culton 12-10-19 23 Bacteria identified Cx Nom (Body fld) CULTURE, BODY FLD: No growth 5 days GRAM STAIN: No organisms seen Rare Polymorphonuclear leukocytes Normal [facility] Comment on above: Performed By: #### 6 11-4 ####[facility]ORATORYCLIA [id number] [place] [address] [place] CASE MANAGEMon 12-09-2022 CASE MANAGEM Normal [facility] CBC W Auto Differential pane l (Bld)on 12-09-2022 Basophils (Bld) [#/Vol] 0.07 10*3/uL Normal <0.11 [facility] Comment on above: Order Comment: Speci men Type: BLOOD SPECIMENOrdering Facility: [facility] Address: [address] [place] [address] Performed By: #### 5 7021-8 ####[facility]ATORYCLIA [id number] [address] [place] Basophils/100 WBC (Bld) 0.9 % Normal [facility] Comment on above: Order Comment: Speci men Type: BLOOD SPECIMENOrdering Facility: [facility] Address: [address] [place] [address] Performed By: #### 5 7021-8 ####[facility]ORATORYCLIA [id number] [address] [place] Differential cell count method Nom (Bld) Auto Normal Stephens [facility] Comment on above: Order Comment: Speci men Type: BLOOD SPECIMENOrdering Facility: [facility] Address: [address] [place] [address] Performed By: #### 5 7021-8 ####[facility]ATORYCLIA [id number] [place] [address] [place] Eosinophils (Bld) [#/Vol] 0.29 10*3/uL Normal <0.46 [facility] Comment on above: Order Comment: Speci men Type: BLOOD SPECIMENOrdering Facility: [facility] Address: [address] [place] [address] Performed By: #### 5 7021-8 ####[facility]ATORYCLIA [id number] [address] [place] Eosinophils/100 WBC (Bld) 3.5 % Normal [facility] Comment on above: Order Comment: Speci men Type: BLOOD SPECIMENOrdering Facility: [facility] Address: [address] [place] [address] Performed By: #### 5 7021-8 ####[facility] LABORATORYCLIA [id number] [address] [place] Erythrocyte distribution width (RBC) [Ratio] 15.9 % High 11.5-15.0 [facility] Comment on above: Order Comment: Speci men Type: BLOOD SPECIMENOrdering Facility: [facility] Address: [address] [place] [address] Performed By: #### 5 7021-8 ####[facility] LABORATORYCLIA [id number] [address] [place] Hematocrit (Bld) [Volume fraction] 27.5 % Low 39.0-51.0 [facility] Comment on above: Order Comment: Speci men Type: BLOOD SPECIMENOrdering Facility: [facility] Address: [address] [place] [address] Performed By: #### 5 7021-8 ####[facility] LABORATORYCLIA [id number] [address] [place] Hemoglobin (Bld) [Mass/Vol] 8.0 g/dL Low 13.0-17.0 [facility] Comment on above: Order Comment: Speci men Type: BLOOD SPECIMENOrdering Facility: [facility] Address: [address] [place] [address] Performed By: #### 5 7021-8 ####[facility] LABORATORYCLIA [id number] [address] [place] Immature granulocytes (Bld) [#/Vol] 0.13 10*3/uL High <0.10 [facility] Comment on above: Order Comment: Speci men Type: BLOOD SPECIMENOrdering Facility: [facility] Address: [address] [place] [address] Performed By: #### 5 7021-8 ####[facility] LABORATORYCLIA [id number] [address] OF [facility] Immature granulocytes/100 WBC (Bld) 1.6 % Normal [facility] Comment on above: Order Comment: Speci men Type: BLOOD SPECIMENOrdering Facility: [facility] Address: [address] [place] [address] Performed By: #### 5 7021-8 ####[facility] LABORATORYCLIA [id number] [place] [address] [place] Lymphocytes (Bld) [#/Vol] 2.21 10*3/uL Normal 1.00-4.00 [facility] Comment on above: Order Comment: Speci men Type: BLOOD SPECIMENOrdering Facility: [facility] Address: [address] [place] [address] Performed By: #### 5 7021-8 ####[facility] LABORATORYCLIA [id number] [address] Lymphocytes/100 WBC (Bld) 26.9 % Normal [facility] Comment on above: Order Comment: Speci men Type: BLOOD SPECIMENOrdering Facility: [facility] Address: [address] [place] [address] Performed By: #### 5 7021-8 ####[facility] LABORATORYCLIA [id number] [address] [place] MCH (RBC) [Entitic mass] 23.9 pg Low 26.0-34.0 [facility] Comment on above: Order Comment: Speci men Type: BLOOD SPECIMENOrdering Facility: [facility] Address: [address] [place] [address] Performed By: #### 5 7021-8 ####[facility]ORATORYCLIA [id number] [address] [place] MCHC (RBC) [Mass/Vol] 29.1 g/dL Low 30.5-36.0 [facility] Comment on above: Order Comment: Speci men Type: BLOOD SPECIMENOrdering Facility: [facility] Address: [address] [place] [address] Performed By: #### 5 7021-8 ####[facility]ATORYCLIA [id number] [place] [address] [place] MCV (RBC) [Entitic vol] 82.1 fL Normal 80.0-100.0 [facility] Comment on above: Order Comment: Speci men Type: BLOOD SPECIMENOrdering Facility: [facility] Address: [address] [place] [address] Performed By: #### 5 7021-8 ####[facility]ORATORYCLIA [id number] [address] [place] Monocytes (Bld) [#/Vol] 0.87 10*3/uL High <0.87 [facility] Comment on above: Order Comment: Speci men Type: BLOOD SPECIMENOrdering Facility: [facility] Address: [address] [place] [address] Performed By: #### 5 7021-8 ####[facility] LABORATORYCLIA [id number] [address] STATES [facility] Monocytes/100 WBC (Bld) 10.6 % Normal [facility] Comment on above: Order Comment: Speci men Type: BLOOD SPECIMENOrdering Facility: [facility] Address: [address] [place] [address] Performed By: #### 5 7021-8 ####[facility]ORATORYCLIA [id number] [address] [place] Neutrophils (Bld) [#/Vol] 4.65 10*3/uL Normal 1.45-7.50 [facility] Comment on above: Order Comment: Speci men Type: BLOOD SPECIMENOrdering Facility: [facility] Address: [address] [place] [address] Performed By: #### 5 7021-8 ####[facility]ORATORYCLIA [id number] [address] [place] Neutrophils/100 WBC (Bld) 56.5 % Normal [facility] Comment on above: Order Comment: Speci men Type: BLOOD SPECIMENOrdering Facility: [facility] Address: [address] [address] Performed By: #### 5 7021-8 ####[facility]ORATORYCLIA [id number] [address] Nucleated RBC (Bld) [#/Vol] 10*3/uL Normal <0.01 [facility] Comment on above: Order Comment: Speci men Type: BLOOD SPECIMENOrdering Facility: [facility] Address: [address] [address] Performed By: #### 5 7021-8 ####[facility]ORATORYCLIA [id number] [address] [place] Nucleated RBC/100 WBC (Bld) [Ratio] 0.0 /100 WBC Normal [facility] Comment on above: Order Comment: Speci men Type: BLOOD SPECIMENOrdering Facility: [facility] Address: [address] [place] [address] Performed By: #### 5 7021-8 ####[facility]ORATORYCLIA [id number] [address] [place] Platelet mean volume (Bld) [Entitic vol] 9.5 fL Normal 9.0-12.7 [facility] Comment on above: Order Comment: Speci men Type: BLOOD SPECIMENOrdering Facility: [facility] Address: [address] [address] Performed By: #### 5 7021-8 ####[facility]ORATORYCLIA [id number] [address] [place] Platelets (Bld) [#/Vol] 481 10*3/uL High 150-400 [facility] Comment on above: Order Comment: Speci men Type: BLOOD SPECIMENOrdering Facility: [facility] Address: [address] [place] [address] Performed By: #### 5 7021-8 ####[facility]ORATORYCLIA [id number] [address] [place] RBC (Bld) [#/Vol] 3.35 10*6/uL Low 4.20-6.00 [facility] Comment on above: Order Comment: Speci men Type: BLOOD SPECIMENOrdering Facility: [facility] Address: [address] [place] [address] Performed By: #### 5 7021-8 ####[facility]ORATORYCLIA [id number] [place] [address] [place] WBC (Bld) [#/Vol] 8.22 10*3/uL Normal 3.70-11.00 [facility] Comment on above: Order Comment: Speci men Type: BLOOD SPECIMENOrdering Facility: [facility] Address: [address] [place] [address] Performed By: #### 5 7021-8 ####[facility]ORATORYCLIA [id number] [address] OF [facility] CONSULT PROGon 12-09-2022 CONSULT PROG Normal [facility] CYTOLOGY NON-GYNon 3 CASE REPORT Normal [facility] Comment on above: Order Comment: Speci men Type: FLUID SPECIMENOrdering Facility: [facility] Address: [address] [place] [address] Result Comment: [facility] Cytology Report Case: [id number] Provider: Myla Miller MD Collected: 12/09/2022 02:58 PMOrdering Location: [address] MED/SURG Received: 12/10/2022 10:17 AMPathologist: Lupe Sparrow MDSpecimen: PLEURAL FLUID RIGHT Performed By: #### C YTONON ####[facility] LABORATORYCLIA [id number] [address] [place] CLINICAL HISTORY pleural effusion Normal [facility] Comment on above: Order Comment: Speci men Type: FLUID SPECIMENOrdering Facility: [facility] Address: [address] [place] [address] Performed By: #### C YTONON ####[facility]ATORYCLIA [id number] [address] FINAL DIAGNOSIS Normal [facility] Comment on above: Order Comment: Speci men Type: FLUID SPECIMENOrdering Facility: [facility] Address: [address] [place] [address] Result Comment: A - PLEURAL FLUID RIGHT Negative for malignant cells.The following cell blocks were associated with this case:A1Cell Block, Formalin Fixed [place] Performed By: #### C YTONON ####[facility] LABORATORYCLIA [id number] [address] FINAL PERFORMING LAB Normal [facility] Comment on above: Order Comment: Speci men Type: FLUID SPECIMENOrdering Facility: [facility] Address: [address] [place] [address] Result Comment: Tech nical component, turning machine set up operator screening performed at [facility], [address] [place] [address] CLIA# [id number] interpretation performed at [facility], [address] [place] [address] CLIA# [id number] Director: Lucian Ramirez M.D. Performed By: #### C YTONON ####[facility] LABORATORYCLIA [id number] [address] GROSS DESCRIPTION Normal [facility] Comment on above: Order Comment: Speci men Type: FLUID SPECIMENOrdering Facility: [facility] Address: [address] [place] [address] Result Comment: A. P LEURAL FLUID [id number] cc hazy yellow fluid. ThinPrep and Cell Block prepared. Performed By: #### C YTONON ####[facility]ORATORYCLIA [id number] [address] [place] Glucose Fld-mCncon 3 Glucose (Body fld) [Mass/Vol] 129 mg/dL Normal See Comment [facility] Comment on above: Order Comment: Speci men Type: BODY FLUID SPECIMENOrdering Facility: [facility] Address: [address] [place] [address] Result Comment: Syno vial fluid: Synovial fluid glucose measurement may be useful in classifying various joint disorders. A concurrent plasma glucose measurement should be performed to determine the glucose plasma minus glucose synovial fluid???difference, which is normally <= 10.0 mg/dL.Artificial lowering of synovial fluid glucose, due to glycolytic action of leukocytes, may result from analyses that occur more than one hour from the time of collection.Reference: 1. CLSI. Analysis of Body Fluids in Clinical Chemistry Approved Guideline. CLSI document C49A. MAVERICK Rodas: Clinical Laboratory Standards [place]: 2007. Performed By: #### 2 344-0, 2529-6, 2881-1 ####[facility] LABCLIA [id number] [place] [address] [place] LDH Fld[facility] 12-09-2022 LDH (Body fld) [Catalytic activity/Vol] 113 U/L Normal See Comment [facility] Comment on above: Order Comment: Speci lucas Type: BODY FLUID SPECIMENOrdering Facility: [facility] Address: [address] [place] [address] Result Comment: Pleu ral fluids: Pleural fluid lactate dehydrogenase (LDH) measurements may be useful for classifying pleural effusions as exudates. A ratio of pleural fluid LDH to a concurrent serum LDH > 0.6 is suggestive of exudate.Peritoneal fluids: Ascitic fluid LDH measurements may aid in characterizing secondary peritonitis and should be interpreted along with other clinical and laboratory information.Synovial fluids: Synovial fluid LDH measurements may be useful as an inflammatory marker for various arthritic conditions and should be interpreted along with other clinical and laboratory information.Reference: 1. CLSI. Analysis of Body Fluids in Clinical Chemistry Approved Guideline. CLSI document C49A. MAVERICK Rodas: Clinical Laboratory Standards [place]: 2007.Reference: 2. Elizabeth LIRA, Claudio Licea. Body fluid analysis: clinical utility and applicability of published studies to guide interpretation of today's laboratory testing in serous fluids. Crit Rev Clin Lab Sci, 2013:50(4,5):107 to 124.Reference: 3. Garcia Bourne Mitrovic DR. Lactate dehydrogenase activity and its isoenzymes in serum and synovial fluid of patients with rheumatoid arthritis and osteoarthritis. J Rheumatol. 1992:19:529 to 533. Performed By: #### 2 344-0, 2529-6, 2881-1 ####[facility] LABCLIA [id number] [place] [address] [place] NUTRITIONon 12-09-2022 NUTRITION Normal [facility] PH PLEURAL FLUIDon 3 Fluid Nom (Body fld) pleu Normal [facility] Comment on above: Order Comment: Speci men Type: BODY FLUID SPECIMENOrdering Facility: [facility] Address: [address] [place] [address] Performed By: #### L [id number] ####[facility]LOOMINGTONIA [id number] [address] [place] pH (Body fld) 7.7 [pH] Normal [facility] Comment on above: Order Comment: Speci [facility] Type: BODY FLUID SPECIMENOrdering Facility: [facility] Address: [address] [place] [address] Result Comment: No r eference range has been established for this specimen type. Performed By: #### L [id number] ####[facility] LABORATORYIA [id number] [address] [place] Prot Fld-mCncon 12-09-2022 Protein (Body fld) [Mass/Vol] 3.8 g/dL Normal See Comment [facility] Comment on above: Order Comment: Speci [facility] Type: BODY FLUID SPECIMENOrdering Facility: [facility] Address: [address] [place] [address] Result Comment: Sero us fluids: Effusions are the accumulation of clinically detected fluid in any of the serous cavities. Effusions are further into transudates and exudates, which aid in determining the etiology of the effusion.Transudate: Body fluid total protein measurement < 3.0 g/dL. A ratio of serous fluid total protein to a concurrent serum total protein < 0.5 indicates a transudate.Exudate: Body fluid total protein measurement >= 3.0 g/dL. A ratio of serous fluid total protein to a concurrent serum total protein >= 0.5 indicates an exudate.Reference: 1. CLSI. Analysis of Body Fluids in Clinical Chemistry Approved Guideline. CLSI document C49A. MAVERICK Rodas: Clinical Laboratory Standards [place]: 2007. Performed By: #### 2 344-0, 2529-6, 2881-1 ####[facility] LABCLIA [id number] [facility] [id number] [place] [address] [place] Renal function 2000 panelon 12-09-2022 Albumin [Mass/Vol] 3.1 g/dL Low 3.9-4.9 [facility] Comment on above: Order Comment: Speci men Type: BLOOD SPECIMENOrdering Facility: [facility] Address: [address] [address] Performed By: #### 2 4362-6 ####[facility] LABORATORYCLIA [id number] [address] STATES OF [facility] Anion gap [Moles/Vol] 10 mmol/L Normal 9-18 [facility] Comment on above: Order Comment: Speci men Type: BLOOD SPECIMENOrdering Facility: [facility] Address: [address] [place] [address] Performed By: #### 2 4362-6 ####[facility] LABORATORYCLIA [id number] [address] STATES OF [facility] Calcium [Mass/Vol] 9.0 mg/dL Normal 8.5-10.2 [facility] Comment on above: Order Comment: Speci men Type: BLOOD SPECIMENOrdering Facility: [facility] Address: [address] [address] Performed By: #### 2 4362-6 ####[facility] LABORATORYCLIA [id number] [address] [place] Chloride [Moles/Vol] 98 mmol/L Normal 97-105 [facility] Comment on above: Order Comment: Speci men Type: BLOOD SPECIMENOrdering Facility: [facility] Address: [address] [address] Performed By: #### 2 4362-6 ####[facility]ORATORYCLIA [id number] [address] [place] CO2 [Moles/Vol] 31 mmol/L High 22-30 [facility] Comment on above: Order Comment: Speci men Type: BLOOD SPECIMENOrdering Facility: [facility] Address: [address] [place] [address] Performed By: #### 2 4362-6 ####[facility] LABORATORYCLIA [id number] [address] STATES OF [facility] Creatinine [Mass/Vol] 0.62 mg/dL Low 0.73-1.22 [facility] Comment on above: Order Comment: Speci men Type: BLOOD SPECIMENOrdering Facility: [facility] Address: [address] [place] [address] Performed By: #### 2 4362-6 ####[facility]ITALCLIA [id number] [address] ESTIMATED GLOMERULAR FILTRATION RATE 113 mL/min/1.73m??? Normal >=60 [facility] Comment on above: Order Comment: Speci men Type: BLOOD SPECIMENOrdering Facility: [facility] Address: [address] [place] [address] Result Comment: Lola mated Glomerular Filtration Rate (eGFR) is calculated using the 2020 CKD-EPI creatinine equation. This equation utilizes serum creatinine, sex, and age as parameters. The creatinine assay has traceable calibration to isotope dilution-mass spectrometry. Refer to KDIGO guidelines for clinical interpretation. In patients with unstable renal function, e.g. those with acute kidney injury, the eGFR may not accurately reflect actual GFR. Performed By: #### 2 4362-6 ####[facility] LABORATORYCLIA [id number] [address] [place] Glucose [Mass/Vol] 128 mg/dL High 74-99 [facility] Comment on above: Order Comment: Speci men Type: BLOOD SPECIMENOrdering Facility: [facility] Address: [address] [address] Result Comment: The [place] Diabetes Association (ADA) provides guidance for cutoff values for fasting glucose and random glucose. The ADA defines fasting as no caloric intake for at least 8 hours. Fasting plasma glucose results between 100 to 125 mg/dL indicate increased risk for diabetes (prediabetes).Fasting plasma glucose results greater than or equal to 126 mg/dL meet the criteria for diagnosis of diabetes. In the absence of unequivocal hyperglycemia, results should be confirmed by repeat testing. In a patient with classic symptoms of hyperglycemia or hyperglycemic crisis, random plasma glucose results greater than or equal to 200 mg/dL meet the criteria for diagnosis of diabetes.Reference: Standards of Medical Care in Diabetes 2016, [place] [employer]. Diabetes Care. 2016.39(Suppl 1). Performed By: #### 2 4362-6 ####[facility] LABORATORYCLIA [id number] [place] [address] [place] Phosphate [Mass/Vol] 3.8 mg/dL Normal 2.7-4.8 [facility] Comment on above: Order Comment: Speci men Type: BLOOD SPECIMENOrdering Facility: [facility] Address: [address] [address] Performed By: #### 2 4362-6 ####[facility] LABORATORYCLIA [id number] [place] [address] [place] Potassium [Moles/Vol] 4.0 mmol/L Normal 3.7-5.1 [facility] Comment on above: Order Comment: Speci men Type: BLOOD SPECIMENOrdering Facility: [facility] Address: [address] [address] Performed By: #### 2 4362-6 ####[facility] LABORATORYCLIA [id number] [place] [address] [place] Sodium [Moles/Vol] 139 mmol/L Normal 136-144 [facility] Comment on above: Order Comment: Speci men Type: BLOOD SPECIMENOrdering Facility: [facility] Address: [address] [address] Performed By: #### 2 4362-6 ####[facility] LABORATORYCLIA [id number] [place] [address] [place] Urea nitrogen [Mass/Vol] 15 mg/dL Normal 9-24 [facility] Comment on above: Order Comment: Speci men Type: BLOOD SPECIMENOrdering Facility: [facility] Address: [address] [place] [address] Performed By: #### 2 4362-6 ####[facility] LABORATORYCLIA [id number] [place] [address] [place] US THORACENTESIS BIon 2022 US THORACENTESIS BI Normal [facility] XR CHEST 1V FRONTALon 2022 XR CHEST 1V FRONTAL Normal [facility] XR CHEST 1V FRONTAL Normal [facility] Basic metabolic 2000 panelon 12-08-2022 Anion gap [Moles/Vol] 8 mmol/L Low 9-18 [facility] Comment on above: Order Comment: Speci men Type: BLOOD SPECIMENOrdering Facility: [facility] Address: [address] [place] [address] Performed By: #### 2 4321-2 ####[facility] LABORATORYCLIA [id number] [place] [address] [place] Calcium [Mass/Vol] 8.8 mg/dL Normal 8.5-10.2 [facility] Comment on above: Order Comment: Speci men Type: BLOOD SPECIMENOrdering Facility: [facility] Address: [address] [place] [address] Performed By: #### 2 4321-2 ####[facility] LABORATORYCLIA [id number] [place] [address] [place] Chloride [Moles/Vol] 97 mmol/L Normal 97-105 [facility] Comment on above: Order Comment: Speci men Type: BLOOD SPECIMENOrdering Facility: [facility] Address: [address] [place] [address] Performed By: #### 2 4321-2 ####[facility] LABORATORYCLIA [id number] [address] CO2 [Moles/Vol] 32 mmol/L High 22-30 [facility] Comment on above: Order Comment: Speci men Type: BLOOD SPECIMENOrdering Facility: [facility] Address: [address] [address] Performed By: #### 2 4321-2 ####[facility] LABORATORYCLIA [id number] [address] OF [facility] Creatinine [Mass/Vol] 0.60 mg/dL Low 0.73-1.22 [facility] Comment on above: Order Comment: Speci men Type: BLOOD SPECIMENOrdering Facility: [facility] Address: [address] [place] [address] Performed By: #### 2 4321-2 ####[facility] LABORATORYCLIA [id number] [address] ESTIMATED GLOMERULAR FILTRATION RATE 114 mL/min/1.73m??? Normal >=60 [facility] Comment on above: Order Comment: Speci men Type: BLOOD SPECIMENOrdering Facility: [facility] Address: [address] [place] [address] Result Comment: Lola mated Glomerular Filtration Rate (eGFR) is calculated using the 2020 CKD-EPI creatinine equation. This equation utilizes serum creatinine, sex, and age as parameters. The creatinine assay has traceable calibration to isotope dilution-mass spectrometry. Refer to KDIGO guidelines for clinical interpretation. In patients with unstable renal function, e.g. those with acute kidney injury, the eGFR may not accurately reflect actual GFR. Performed By: #### 2 4321-2 ####[facility] LABORATORYCLIA [id number] [address] OF [place] Glucose [Mass/Vol] 136 mg/dL High 74-99 [facility] Comment on above: Order Comment: Speci men Type: BLOOD SPECIMENOrdering Facility: [facility] Address: [address] [place] [address] Result Comment: The [place] Diabetes Association (ADA) provides guidance for cutoff values for fasting glucose and random glucose. The ADA defines fasting as no caloric intake for at least 8 hours. Fasting plasma glucose results between 100 to 125 mg/dL indicate increased risk for diabetes (prediabetes).Fasting plasma glucose results greater than or equal to 126 mg/dL meet the criteria for diagnosis of diabetes. In the absence of unequivocal hyperglycemia, results should be confirmed by repeat testing. In a patient with classic symptoms of hyperglycemia or hyperglycemic crisis, random plasma glucose results greater than or equal to 200 mg/dL meet the criteria for diagnosis of diabetes.Reference: Standards of Medical Care in Diabetes 2016, [place] [employer]. Diabetes Care. 2016.39(Suppl 1). Performed By: #### 2 4321-2 ####[facility]ORATORYCLIA [id number] [place] [address] [place] Potassium [Moles/Vol] 4.1 mmol/L Normal 3.7-5.1 [facility] Comment on above: Order Comment: Speci men Type: BLOOD SPECIMENOrdering Facility: [facility] Address: [address] [place] [address] Performed By: #### 2 4321-2 ####[facility]ORATORYCLIA [id number] [place] [address] [place] Sodium [Moles/Vol] 137 mmol/L Normal 136-144 [facility] Comment on above: Order Comment: Doroteo zavala Type: BLOOD SPECIMENOrdering Facility: [facility] Address: [address] [place] [address] Performed By: #### 2 4321-2 ####[facility]ORATORYCLIA [id number] [address] [place] Urea nitrogen [Mass/Vol] 14 mg/dL Normal 9-24 [facility] Comment on above: Order Comment: Speci men Type: BLOOD SPECIMENOrdering Facility: [facility] Address: [address] [place] [address] Performed By: #### 2 4321-2 ####[facility]ORATORYCLIA [id number] [address] [place] CASE MANAGEMon 12-08-2022 CASE MANAGEM Normal [facility] THERAPY NTon 12-08-2022 THERAPY NT Normal [facility] THERAPY NT Normal [facility] ALLIED HEALTHon 12-07-2022 ALLIED HEALTH Normal [facility] LDH SerPl-cCncon 12-07-2022 LDH [Catalytic activity/Vol] 237 U/L High 135-225 [facility] Comment on above: Order Comment: Speci men Type: BLOOD SPECIMENOrdering Facility: [facility] Address: [address] [place] [address] Performed By: #### 2 532-0, 2885-2 ####[facility]ATORYCLIA [id number] [place] [address] [place] Prot SerPl-mCncon 12-07-2022 Protein [Mass/Vol] 6.1 g/dL Low 6.3-8.0 [facility] Comment on above: Order Comment: Speci men Type: BLOOD SPECIMENOrdering Facility: [facility] Address: [address] [place] [address] Performed By: #### 2 532-0, 2885-2 ####[facility]ORATORYCLIA [id number] [address] [place] THERAPY NTon 12-07-2022 THERAPY NT Normal [facility] XR CHEST 1V FRONTALon 2022 XR CHEST 1V FRONTAL Normal [facility] Basic metabolic 2000 panelon 12-06-2022 Anion gap [Moles/Vol] 8 mmol/L Low 9-18 [facility] Comment on above: Order Comment: Speci men Type: BLOOD SPECIMENOrdering Facility: [facility] Address: [address] [place] [address] Performed By: #### 2 4321-2 ####[facility]ORATORYCLIA [id number] [address] [place] Calcium [Mass/Vol] 8.9 mg/dL Normal 8.5-10.2 [facility] Comment on above: Order Comment: Speci men Type: BLOOD SPECIMENOrdering Facility: [facility] Address: [address] [place] [address] Performed By: #### 2 4321-2 ####[facility]ATORYCLIA [id number] [address] [place] Chloride [Moles/Vol] 96 mmol/L Low 97-105 [facility] Comment on above: Order Comment: Speci men Type: BLOOD SPECIMENOrdering Facility: [facility] Address: [address] [place] [address] Performed By: #### 2 4321-2 ####[facility]ATORYCLIA [id number] [address] [place] CO2 [Moles/Vol] 30 mmol/L Normal 22-30 [facility] Comment on above: Order Comment: Speci men Type: BLOOD SPECIMENOrdering Facility: [facility] Address: [address] [place] [address] Performed By: #### 2 4321-2 ####[facility]ORATORYCLIA [id number] [address] OF [facility] Creatinine [Mass/Vol] 0.59 mg/dL Low 0.73-1.22 [facility] Comment on above: Order Comment: Speci men Type: BLOOD SPECIMENOrdering Facility: [facility] Address: [address] [place] [address] Performed By: #### 2 4321-2 ####[facility]ORATORYCLIA [id number] [address] ESTIMATED GLOMERULAR FILTRATION RATE 115 mL/min/1.73m??? Normal >=60 [facility] Comment on above: Order Comment: Speci men Type: BLOOD SPECIMENOrdering Facility: [facility] Address: [address] [place] [address] Result Comment: Lola mated Glomerular Filtration Rate (eGFR) is calculated using the 2020 CKD-EPI creatinine equation. This equation utilizes serum creatinine, sex, and age as parameters. The creatinine assay has traceable calibration to isotope dilution-mass spectrometry. Refer to KDIGO guidelines for clinical interpretation. In patients with unstable renal function, e.g. those with acute kidney injury, the eGFR may not accurately reflect actual GFR. Performed By: #### 2 4321-2 ####[facility]ORATORYCLIA [id number] [place] [address] [place] Glucose [Mass/Vol] 138 mg/dL High 74-99 [facility] Comment on above: Order Comment: Speci men Type: BLOOD SPECIMENOrdering Facility: [facility] Address: [address] [place] [address] Result Comment: The [place] Diabetes Association (ADA) provides guidance for cutoff values for fasting glucose and random glucose. The ADA defines fasting as no caloric intake for at least 8 hours. Fasting plasma glucose results between 100 to 125 mg/dL indicate increased risk for diabetes (prediabetes).Fasting plasma glucose results greater than or equal to 126 mg/dL meet the criteria for diagnosis of diabetes. In the absence of unequivocal hyperglycemia, results should be confirmed by repeat testing. In a patient with classic symptoms of hyperglycemia or hyperglycemic crisis, random plasma glucose results greater than or equal to 200 mg/dL meet the criteria for diagnosis of diabetes.Reference: Standards of Medical Care in Diabetes 2016, [place] [employer]. Diabetes Care. 2016.39(Suppl 1). Performed By: #### 2 4321-2 ####[facility]ORATORYCLIA [id number] [place] [address] [place] Potassium [Moles/Vol] 4.3 mmol/L Normal 3.7-5.1 [facility] Comment on above: Order Comment: Speci men Type: BLOOD SPECIMENOrdering Facility: [facility] Address: [address] [place] [address] Performed By: #### 2 4321-2 ####[facility]ORATORYCLIA [id number] [place] [address] [place] Sodium [Moles/Vol] 134 mmol/L Low 136-144 [facility] Comment on above: Order Comment: Speci men Type: BLOOD SPECIMENOrdering Facility: [facility] Address: [address] [place] [address] Performed By: #### 2 4321-2 ####[facility]ORATORYCLIA [id number] [place] [address] [place] Urea nitrogen [Mass/Vol] 14 mg/dL Normal 02-06 [facility] Comment on above: Order Comment: Speci men Type: BLOOD SPECIMENOrdering Facility: [facility] Address: [address] [place] [address] Performed By: #### 2 4321-2 ####[facility]ORATORYCLIA [id number] [address] [place] CASE MANAGEMon 12-06-2022 CASE MANAGEM Normal [facility] CBC W Auto Differential pane l (Bld)on 12-06-2022 Basophils (Bld) [#/Vol] 0.08 10*3/uL Normal <0.11 [facility] Comment on above: Order Comment: Speci men Type: BLOOD SPECIMENOrdering Facility: [facility] Address: [address] [place] [address] Performed By: #### 5 7021-8 ####[facility]ORATORYCLIA [id number] [address] [place] Basophils/100 WBC (Bld) 1.0 % Normal [facility] Comment on above: Order Comment: Speci men Type: BLOOD SPECIMENOrdering Facility: [facility] Address: [address] [place] [address] Result Comment: Diff erential confirmed by visual scan of peripheral blood smear slide. Performed By: #### 5 7021-8 ####[facility]ATORYCLIA [id number] [address] [place] Differential cell count method Nom (Bld) Auto Normal [facility] Comment on above: Order Comment: Speci men Type: BLOOD SPECIMENOrdering Facility: [facility] Address: [address] [place] [address] Performed By: #### 5 7021-8 ####[facility]ATORYCLIA [id number] [address] [place] Eosinophils (Bld) [#/Vol] 0.27 10*3/uL Normal <0.46 [facility] Comment on above: Order Comment: Speci men Type: BLOOD SPECIMENOrdering Facility: [facility] Address: [address] [place] [address] Performed By: #### 5 7021-8 ####[facility]ATORYCLIA [id number] [address] Eosinophils/100 WBC (Bld) 3.5 % Normal [facility] Comment on above: Order Comment: Speci men Type: BLOOD SPECIMENOrdering Facility: [facility] Address: [address] [place] [address] Performed By: #### 5 7021-8 ####[facility]ATORYCLIA [id number] [address] Erythrocyte distribution width (RBC) [Ratio] 15.6 % High 11.5-15.0 [facility] Comment on above: Order Comment: Speci men Type: BLOOD SPECIMENOrdering Facility: [facility] Address: [address] [place] [address] Performed By: #### 5 7021-8 ####[facility]ORATORYCLIA [id number] [address] Hematocrit (Bld) [Volume fraction] 29.1 % Low 39.0-51.0 [facility] Comment on above: Order Comment: Speci men Type: BLOOD SPECIMENOrdering Facility: [facility] Address: [address] [place] [address] Performed By: #### 5 7021-8 ####[facility]ORATORYCLIA [id number] [address] STATES [facility] Hemoglobin (Bld) [Mass/Vol] 8.3 g/dL Low 13.0-17.0 [facility] Comment on above: Order Comment: Speci men Type: BLOOD SPECIMENOrdering Facility: [facility] Address: [address] [place] [address] Performed By: #### 5 7021-8 ####[facility]ATORYCLIA [id number] [address] Immature granulocytes (Bld) [#/Vol] 0.16 10*3/uL High <0.10 [facility] Comment on above: Order Comment: Speci men Type: BLOOD SPECIMENOrdering Facility: [facility] Address: [address] [place] [address] Performed By: #### 5 7021-8 ####[facility]ATORYCLIA [id number] [address] Immature granulocytes/100 WBC (Bld) 2.1 % Normal [facility] Comment on above: Order Comment: Speci men Type: BLOOD SPECIMENOrdering Facility: [facility] Address: [address] [place] [address] Performed By: #### 5 7021-8 ####[facility]ATORYCLIA [id number] [address] Lymphocytes (Bld) [#/Vol] 2.34 10*3/uL Normal 1.00-4.00 [facility] Comment on above: Order Comment: Speci men Type: BLOOD SPECIMENOrdering Facility: [facility] Address: [address] [place] [address] Performed By: #### 5 7021-8 ####[facility]ATORYCLIA [id number] [address] Lymphocytes/100 WBC (Bld) 30.2 % Normal [facility] Comment on above: Order Comment: Speci men Type: BLOOD SPECIMENOrdering Facility: [facility] Address: [address] [place] [address] Performed By: #### 5 7021-8 ####[facility]ATORYCLIA [id number] [address] [place] MCH (RBC) [Entitic mass] 24.1 pg Low 26.0-34.0 [facility] Comment on above: Order Comment: Speci men Type: BLOOD SPECIMENOrdering Facility: [facility] Address: [address] [place] [address] Performed By: #### 5 7021-8 ####[facility]ATORYCLIA [id number] [address] [place] MCHC (RBC) [Mass/Vol] 28.5 g/dL Low 30.5-36.0 [facility] Comment on above: Order Comment: Speci men Type: BLOOD SPECIMENOrdering Facility: [facility] Address: [address] [place] [address] Performed By: #### 5 7021-8 ####[facility]ATORYCLIA [id number] [address] [place] MCV (RBC) [Entitic vol] 84.3 fL Normal 80.0-100.0 [facility] Comment on above: Order Comment: Speci men Type: BLOOD SPECIMENOrdering Facility: [facility] Address: [address] [place] [address] Performed By: #### 5 7021-8 ####[facility]ATORYCLIA [id number] [address] [place] Monocytes (Bld) [#/Vol] 0.93 10*3/uL High <0.87 [facility] Comment on above: Order Comment: Speci men Type: BLOOD SPECIMENOrdering Facility: [facility] Address: [address] [place] [address] Performed By: #### 5 7021-8 ####[facility]ATORYCLIA [id number] [address] STATES OF [facility] Monocytes/100 WBC (Bld) 12.0 % Normal [facility] Comment on above: Order Comment: Speci men Type: BLOOD SPECIMENOrdering Facility: [facility] Address: [address] [place] [address] Performed By: #### 5 7021-8 ####[facility]ATORYCLIA [id number] [address] [place] Neutrophils (Bld) [#/Vol] 3.98 10*3/uL Normal 1.45-7.50 [facility] Comment on above: Order Comment: Speci men Type: BLOOD SPECIMENOrdering Facility: [facility] Address: [address] [address] Performed By: #### 5 7021-8 ####[facility]ATORYCLIA [id number] [address] [place] Neutrophils/100 WBC (Bld) 51.2 % Normal [facility] Comment on above: Order Comment: Speci men Type: BLOOD SPECIMENOrdering Facility: [facility] Address: [address] [address] Performed By: #### 5 7021-8 ####[facility]ATORYCLIA [id number] [address] [place] Nucleated RBC (Bld) [#/Vol] 0.02 10*3/uL High <0.01 [facility] Comment on above: Order Comment: Speci men Type: BLOOD SPECIMENOrdering Facility: [facility] Address: [address] [address] Performed By: #### 5 7021-8 ####[facility]ATORYCLIA [id number] [address] [place] Nucleated RBC/100 WBC (Bld) [Ratio] 0.3 /100 WBC Normal [facility] Comment on above: Order Comment: Speci men Type: BLOOD SPECIMENOrdering Facility: [facility] Address: [address] [address] Performed By: #### 5 7021-8 ####[facility]ORATORYCLIA [id number] [place] [address] [place] Platelet mean volume (Bld) [Entitic vol] 9.1 fL Normal 9.0-12.7 [facility] Comment on above: Order Comment: Speci men Type: BLOOD SPECIMENOrdering Facility: [facility] Address: [address] [address] Performed By: #### 5 7021-8 ####[facility]ATORYCLIA [id number] [place] [address] [place] Platelets (Bld) [#/Vol] 525 10*3/uL High 150-400 [facility] Comment on above: Order Comment: Speci men Type: BLOOD SPECIMENOrdering Facility: [facility] Address: [address] [place] [address] Performed By: #### 5 7021-8 ####[facility]ATORYCLIA [id number] [address] [place] RBC (Bld) [#/Vol] 3.45 10*6/uL Low 4.20-6.00 [facility] Comment on above: Order Comment: Speci men Type: BLOOD SPECIMENOrdering Facility: [facility] Address: [address] [place] [address] Performed By: #### 5 7021-8 ####[facility]ORATORYCLIA [id number] [address] OF [facility] WBC (Bld) [#/Vol] 7.76 10*3/uL Normal 3.70-11.00 [facility] Comment on above: Order Comment: Speci men Type: BLOOD SPECIMENOrdering Facility: [facility] Address: [address] [place] [address] Performed By: #### 5 7021-8 ####[facility]ATORYCLIA [id number] [address] [place] CONSULT PROGon 12-06-2022 CONSULT PROG Normal [facility] ALLIED HEALTHon 12-05-2022 ALLIED HEALTH Normal [facility] CBC panel Auto (Bld)on 12-05 Erythrocyte distribution width (RBC) [Ratio] 15.3 % High 11.5-15.0 [facility] Comment on above: Order Comment: Speci men Type: BLOOD SPECIMENOrdering Facility: [facility] Address: [address] [place] [address] Performed By: #### 5 8410-2 ####[facility]ORATORYCLIA [id number] [address] STATES OF [facility] Hematocrit (Bld) [Volume fraction] 27.1 % Low 39.0-51.0 [facility] Comment on above: Order Comment: Speci men Type: BLOOD SPECIMENOrdering Facility: [facility] Address: [address] [place] [address] Performed By: #### 5 8410-2 ####[facility]ATORYCLIA [id number] [address] Hemoglobin (Bld) [Mass/Vol] 7.9 g/dL Low 13.0-17.0 [facility] Comment on above: Order Comment: Speci men Type: BLOOD SPECIMENOrdering Facility: [facility] Address: [address] [place] [address] Performed By: #### 5 8410-2 ####[facility]ORATORYCLIA [id number] [address] MCH (RBC) [Entitic mass] 24.7 pg Low 26.0-34.0 [facility] Comment on above: Order Comment: Speci men Type: BLOOD SPECIMENOrdering Facility: [facility] Address: [address] [place] [address] Performed By: #### 5 8410-2 ####[facility]ORATORYCLIA [id number] [address] MCHC (RBC) [Mass/Vol] 29.2 g/dL Low 30.5-36.0 [facility] Comment on above: Order Comment: Speci men Type: BLOOD SPECIMENOrdering Facility: [facility] Address: [address] [place] [address] Performed By: #### 5 8410-2 ####[facility]ORATORYCLIA [id number] [address] MCV (RBC) [Entitic vol] 84.7 fL Normal 80.0-100.0 [facility] Comment on above: Order Comment: Speci men Type: BLOOD SPECIMENOrdering Facility: [facility] Address: [address] [place] [address] Performed By: #### 5 8410-2 ####[facility]ATORYCLIA [id number] [address] Nucleated RBC (Bld) [#/Vol] 10*3/uL Normal <0.01 [facility] Comment on above: Order Comment: Speci men Type: BLOOD SPECIMENOrdering Facility: [facility] Address: [address] [place] [address] Performed By: #### 5 8410-2 ####[facility]ORATORYCLIA [id number] [address] [place] Platelet mean volume (Bld) [Entitic vol] 9.2 fL Normal 9.0-12.7 [facility] Comment on above: Order Comment: Speci men Type: BLOOD SPECIMENOrdering Facility: [facility] Address: [address] [place] [address] Performed By: #### 5 8410-2 ####[facility]ORATORYCLIA [id number] [address] Platelets (Bld) [#/Vol] 477 10*3/uL High 150-400 [facility] Comment on above: Order Comment: Speci men Type: BLOOD SPECIMENOrdering Facility: [facility] Address: [address] [place] [address] Performed By: #### 5 8410-2 ####[facility]ORATORYCLIA [id number] [address] [place] RBC (Bld) [#/Vol] 3.20 10*6/uL Low 4.20-6.00 [facility] Comment on above: Order Comment: Speci men Type: BLOOD SPECIMENOrdering Facility: [facility] Address: [address] [place] [address] Performed By: #### 5 8410-2 ####[facility]ATORYCLIA [id number] [address] [place] WBC (Bld) [#/Vol] 7.18 10*3/uL Normal 3.70-11.00 [facility] Comment on above: Order Comment: Speci men Type: BLOOD SPECIMENOrdering Facility: [facility] Address: [address] [place] [address] Performed By: #### 5 8410-2 ####[facility]ORATORYCLIA [id number] [address] [place] CONSULTon 12-05-2022 CONSULT Normal [facility] ECG COMPLETEon 12-05-2022 ECG COMPLETE Normal [facility] Gas and Carbon monoxide pane l (BldV)on 12-05-2022 Base excess Calc (BldV) [Moles/Vol] 5 mmol/L High 0-2 [facility] Comment on above: Order Comment: Speci men Type: VENOUS BLOOD SPECIMENOrdering Facility: [facility] Address: [address] [place] [address] Performed By: #### 2 4344-4 ####[facility]ORATORYCLIA [id number] [address] Body temperature 98.24 [degF] Normal [facility] Comment on above: Order Comment: Speci men Type: VENOUS BLOOD SPECIMENOrdering Facility: [facility] Address: [address] [place] [address] Performed By: #### 2 4344-4 ####[facility]ORATORYCLIA [id number] [address] Calcium.ionized (BldV) [Mass/Vol] 1.13 mmol/L Normal 1.08-1.30 [facility] Comment on above: Order Comment: Speci men Type: VENOUS BLOOD SPECIMENOrdering Facility: [facility] Address: [address] [address] Performed By: #### 2 4344-4 ####[facility]ORATORYCLIA [id number] [address] Calcium.ionized adjusted to pH 7.4 (BldA) [Moles/Vol] 1.12 mmol/L Normal 1.08-1.30 [facility] Comment on above: Order Comment: Speci men Type: VENOUS BLOOD SPECIMENOrdering Facility: [facility] Address: [address] [address] Performed By: #### 2 4344-4 ####[facility]ORATORYCLIA [id number] [address] [place] Carboxyhemoglobin (BldV) [Mass fraction] 3.2 % High 0.0-2.0 [facility] Comment on above: Order Comment: Speci men Type: VENOUS BLOOD SPECIMENOrdering Facility: [facility] Address: [address] [place] [address] Result Comment: Carb oxyhemoglobin Reference Range for Smokers: 2.0-8.0% Performed By: #### 2 4344-4 ####[facility]ORATORYCLIA [id number] [place] [address] [place] Chloride [Moles/Vol] 97 mmol/L Low 102-109 [facility] Comment on above: Order Comment: Speci men Type: VENOUS BLOOD SPECIMENOrdering Facility: [facility] Address: [address] [place] [address] Performed By: #### 2 4344-4 ####[facility]ORATORYCLIA [id number] [address] [place] CO2 (BldV) [Partial pressure] 53 mm[Hg] Normal 42-55 [facility] Comment on above: Order Comment: Speci men Type: VENOUS BLOOD SPECIMENOrdering Facility: [facility] Address: [address] [place] [address] Performed By: #### 2 4344-4 ####[facility]ORATORYCLIA [id number] [place] [address] [place] CO2 [Moles/Vol] 29 mmol/L Normal 25-29 [facility] Comment on above: Order Comment: Speci men Type: VENOUS BLOOD SPECIMENOrdering Facility: [facility] Address: [address] [place] [address] Performed By: #### 2 4344-4 ####[facility]ORATORYCLIA [id number] [address] [place] CO2 adjusted to patient's actual temperature (BldV) [Partial pressure] 52 mmHg Normal 42-55 [facility] Comment on above: Order Comment: Speci men Type: VENOUS BLOOD SPECIMENOrdering Facility: [facility] Address: [address] [place] [address] Performed By: #### 2 4344-4 ####[facility] LABORATORYCLIA [id number] [address] [place] Glucose [Mass/Vol] 214 mg/dL High 60-105 [facility] Comment on above: Order Comment: Speci men Type: VENOUS BLOOD SPECIMENOrdering Facility: [facility] Address: [address] [place] [address] Performed By: #### 2 4344-4 ####[facility]ORATORYCLIA [id number] [address] [place] HCO3 (Bld) [Moles/Vol] 30 mmol/L High 24-28 [facility] Comment on above: Order Comment: Speci men Type: VENOUS BLOOD SPECIMENOrdering Facility: [facility] Address: [address] [place] [address] Performed By: #### 2 4344-4 ####[facility]ORATORYCLIA [id number] [address] [place] Hematocrit (Bld) [Volume fraction] 26.6 % Low 39.0-51.0 [facility] Comment on above: Order Comment: Speci men Type: VENOUS BLOOD SPECIMENOrdering Facility: [facility] Address: [address] [address] Performed By: #### 2 4344-4 ####[facility]ORATORYCLIA [id number] [place] [address] [place] Hemoglobin (Bld) [Mass/Vol] 8.6 g/dL Low 13.0-17.0 [facility] Comment on above: Order Comment: Speci men Type: VENOUS BLOOD SPECIMENOrdering Facility: [facility] Address: [address] [place] [address] Performed By: #### 2 4344-4 ####[facility]ATORYCLIA [id number] [address] [place] Lactate [Moles/Vol] 1.1 mmol/L Normal 0.5-2.2 [facility] Comment on above: Order Comment: Speci men Type: VENOUS BLOOD SPECIMENOrdering Facility: [facility] Address: [address] [address] Performed By: #### 2 4344-4 ####[facility]ORATORYCLIA [id number] [address] [place] LITERS 10 Liters/min Normal [facility] Comment on above: Order Comment: Speci men Type: VENOUS BLOOD SPECIMENOrdering Facility: [facility] Address: [address] [place] [address] Performed By: #### 2 4344-4 ####[facility]ORATORYCLIA [id number] [address] [place] Methemoglobin (Bld) [Mass fraction] 1.2 % Normal 0.0-1.5 [facility] Comment on above: Order Comment: Speci men Type: VENOUS BLOOD SPECIMENOrdering Facility: [facility] Address: [address] [place] [address] Performed By: #### 2 4344-4 ####[facility]ORATORYCLIA [id number] [address] [place] O2 THERAPY NC = Nasal Cannula Normal [facility] Comment on above: Order Comment: Speci men Type: VENOUS BLOOD SPECIMENOrdering Facility: [facility] Address: [address] [place] [address] Performed By: #### 2 4344-4 ####[facility]ORATORYCLIA [id number] [address] [place] Oxygen (BldV) [Partial pressure] 189 mm[Hg] High 35-45 [facility] Comment on above: Order Comment: Speci men Type: VENOUS BLOOD SPECIMENOrdering Facility: [facility] Address: [address] [address] Performed By: #### 2 4344-4 ####[facility]ORATORYCLIA [id number] [place] [address] [place] Oxygen adjusted to patient's actual temperature (BldV) [Partial pressure] 188 mmHg High 35-45 [facility] Comment on above: Order Comment: Speci men Type: VENOUS BLOOD SPECIMENOrdering Facility: [facility] Address: [address] [place] [address] Performed By: #### 2 4344-4 ####[facility]ATORYCLIA [id number] [place] [address] [place] Oxygen saturation in Venous blood 100 % High 60-85 [facility] Comment on above: Order Comment: Speci men Type: VENOUS BLOOD SPECIMENOrdering Facility: [facility] Address: [address] [place] [address] Performed By: #### 2 4344-4 ####[facility]ORATORYCLIA [id number] [address] [place] Oxyhemoglobin (BldV) [Mass fraction] 95 % High 60-85 [facility] Comment on above: Order Comment: Speci men Type: VENOUS BLOOD SPECIMENOrdering Facility: [facility] Address: [address] [place] [address] Performed By: #### 2 4344-4 ####[facility]ATORYCLIA [id number] [place] [address] [place] pH (BldV) 7.37 [pH] Normal 7.32-7.42 [facility] Comment on above: Order Comment: Speci men Type: VENOUS BLOOD SPECIMENOrdering Facility: [facility] Address: [address] [place] [address] Performed By: #### 2 4344-4 ####[facility]ATORYCLIA [id number] [place] [address] [place] pH adjusted to patient's actual temperature (BldV) 7.38 Normal 7.32-7.42 [facility] Comment on above: Order Comment: Speci men Type: VENOUS BLOOD SPECIMENOrdering Facility: [facility] Address: [address] [address] Performed By: #### 2 4344-4 ####[facility]ORATORYCLIA [id number] [place] [address] [place] Potassium [Moles/Vol] 4.1 mmol/L Normal 3.5-5.0 [facility] Comment on above: Order Comment: Speci men Type: VENOUS BLOOD SPECIMENOrdering Facility: [facility] Address: [address] [address] Performed By: #### 2 4344-4 ####[facility]ORATORYCLIA [id number] [place] [address] [place] Sodium [Moles/Vol] 134 mmol/L Low 136-144 [facility] Comment on above: Order Comment: Speci men Type: VENOUS BLOOD SPECIMENOrdering Facility: [facility] Address: [address] [address] Performed By: #### 2 4344-4 ####[facility]ORATORYCLIA [id number] [place] [address] [place] NT-proBNP [facility] 12-05 Natriuretic peptide.B prohormone N-Terminal [Mass/Vol] 248 pg/mL High <125 [facility] Comment on above: Order Comment: Speci men Type: BLOOD SPECIMENOrdering Facility: [facility] Address: [address] [address] Performed By: #### 3 3762-6 ####[facility]ORATORYCLIA [id number] [place] [address] [place] XR CHEST 1V FRONTALon 2022 XR CHEST 1V FRONTAL Normal [facility] Basic metabolic 2000 panelon 12-04-2022 Anion gap [Moles/Vol] 9 mmol/L Normal 9-18 [facility] Comment on above: Order Comment: Speci men Type: BLOOD SPECIMENOrdering Facility: [facility] Address: [address] [address] Performed By: #### 2 4321, ####[facility]ATORYCLIA [id number] [place] [address] [place] Calcium [Mass/Vol] 8.8 mg/dL Normal 8.5-10.2 [facility] Comment on above: Order Comment: Speci men Type: BLOOD SPECIMENOrdering Facility: [facility] Address: [address] [place] [address] Performed By: #### 2 2, ####[facility]ATORYCLIA [id number] [place] [address] [place] Chloride [Moles/Vol] 94 mmol/L Low 97-105 [facility] Comment on above: Order Comment: Speci men Type: BLOOD SPECIMENOrdering Facility: [facility] Address: [address] [place] [address] Performed By: #### 2 4320-06, ####[facility]ORATORYCLIA [id number] [address] STATES OF [facility] CO2 [Moles/Vol] 30 mmol/L Normal 22-30 [facility] Comment on above: Order Comment: Speci men Type: BLOOD SPECIMENOrdering Facility: [facility] Address: [address] [place] [address] Performed By: #### 2 4320-06, ####[facility]ORATORYCLIA [id number] [address] [place] Creatinine [Mass/Vol] 0.59 mg/dL Low 0.73-1.22 [facility] Comment on above: Order Comment: Speci men Type: BLOOD SPECIMENOrdering Facility: [facility] Address: [address] [place] [address] Performed By: #### 2 4320-06, ####[facility]ATORYCLIA [id number] [address] [place] ESTIMATED GLOMERULAR FILTRATION RATE 115 mL/min/1.73m??? Normal >=60 [facility] Comment on above: Order Comment: Speci men Type: BLOOD SPECIMENOrdering Facility: [facility] Address: [address] [phone] Result Comment: Lola mated Glomerular Filtration Rate (eGFR) is calculated using the 2020 CKD-EPI creatinine equation. This equation utilizes serum creatinine, sex, and age as parameters. The creatinine assay has traceable calibration to isotope dilution-mass spectrometry. Refer to KDIGO guidelines for clinical interpretation. In patients with unstable renal function, e.g. those with acute kidney injury, the eGFR may not accurately reflect actual GFR. Performed By: #### 2 432-2, ####[facility]ORATORYCLIA [id number] [place] [address] [place] Glucose [Mass/Vol] 162 mg/dL High 74-99 [facility] Comment on above: Order Comment: Doroteo zavala Type: BLOOD SPECIMENOrdering Facility: [facility] Address: [address] [place], [place] [id number] Result Comment: The [place] [employer] (ADA) provides guidance for cutoff values for fasting glucose and random glucose. The ADA defines fasting as no caloric intake for at least 8 hours. Fasting plasma glucose results between 100 to 125 mg/dL indicate increased risk for diabetes (prediabetes).Fasting plasma glucose results greater than or equal to 126 mg/dL meet the criteria for diagnosis of diabetes. In the absence of unequivocal hyperglycemia, results should be confirmed by repeat testing. In a patient with classic symptoms of hyperglycemia or hyperglycemic crisis, random plasma glucose results greater than or equal to 200 mg/dL meet the criteria for diagnosis of diabetes.Reference: Standards of Medical Care in Diabetes 2016, [place] [employer]. Diabetes Care. 2016.39(Suppl 1). Performed By: #### 2 432-2, ####[facility]ORATORYCLIA [id number] [place] [address] [place] Potassium [Moles/Vol] 4.4 mmol/L Normal 3.7-5.1 [facility] Comment on above: Order Comment: Doroteo zavala Type: BLOOD SPECIMENOrdering Facility: [facility] Address: [address] [phone] Performed By: #### 2 432-2, ####[facility]ORATORYCLIA [id number] [address] [place] Sodium [Moles/Vol] 133 mmol/L Low 136-144 [facility] Comment on above: Order Comment: Speci men Type: BLOOD SPECIMENOrdering Facility: [facility] Address: [address] [place] [address] Performed By: #### 2 4321-2, ####[facility]ORATORYCLIA [id number] [place] [address] [place] Urea nitrogen [Mass/Vol] 14 mg/dL Normal 9-24 [facility] Comment on above: Order Comment: Speci men Type: BLOOD SPECIMENOrdering Facility: [facility] Address: [address] [place] [address] Performed By: #### 2 4321-2, ####[facility]ORATORYCLIA [id number] [address] [place] Magnesium SerPl-ncon 12-04 Magnesium [Mass/Vol] 1.8 mg/dL Normal 1.7-2.3 [facility] Comment on above: Order Comment: Speci men Type: BLOOD SPECIMENOrdering Facility: [facility] Address: [address] [place] [address] Performed By: #### 2 4321-2, ####[facility]ORATORYCLIA [id number] [address] [place] CASE MANAGEMon 12-03-2022 CASE MANAGEM Normal [facility] NUTRITIONon 12-03-2022 NUTRITION Normal [facility] CASE MANAGEMon 12-02-2022 CASE MANAGEM Normal [facility] CONSULT PROGon 12-02-2022 CONSULT PROG Normal [facility] THERAPY NTon 12-02-2022 THERAPY NT Normal [facility] THERAPY NT Normal [facility] THERAPY NT Normal [facility] ALLIED HEALTHon 12-01-2022 ALLIED HEALTH Normal [facility] CONSULT PROGon 12-01-2022 CONSULT PROG Normal [facility] XR CHEST 1V FRONTALon 2022 XR CHEST 1V FRONTAL Normal [facility] Basic metabolic 2000 panelon 11-30-2022 Anion gap [Moles/Vol] 8 mmol/L Low 9-18 [facility] Comment on above: Order Comment: Speci men Type: BLOOD SPECIMENOrdering Facility: [facility] Address: [address] [place] [address] Performed By: #### 2 4320-06, 1987-09, ####[facility]ORATORYCLIA [id number] [place] [address] [place] Calcium [Mass/Vol] 8.5 mg/dL Normal 8.5-10.2 [facility] Comment on above: Order Comment: Speci men Type: BLOOD SPECIMENOrdering Facility: [facility] Address: [address] [place] [address] Performed By: #### 2 4320-06, 1987-09, ####[facility]ORATORYCLIA [id number] [place] [address] [place] Chloride [Moles/Vol] 94 mmol/L Low 97-105 [facility] Comment on above: Order Comment: Speci men Type: BLOOD SPECIMENOrdering Facility: [facility] Address: [address] [place] [address] Performed By: #### 2 4320-06, 1987-09, ####[facility]ATORYCLIA [id number] [place] [address] [place] CO2 [Moles/Vol] 31 mmol/L High 22-30 [facility] Comment on above: Order Comment: Speci men Type: BLOOD SPECIMENOrdering Facility: [facility] Address: [address] [place] [address] Performed By: #### 2 4320-06, 1987-09, ####[facility]ORATORYCLIA [id number] [place] [address] [place] Creatinine [Mass/Vol] 0.86 mg/dL Normal 0.73-1.22 [facility] Comment on above: Order Comment: Doroteo lucas Type: BLOOD SPECIMENOrdering Facility: [facility] Address: [address] [phone] Performed By: #### 2 43205-17, 1987-09, ####[facility]ORATORYCLIA [id number] [address] OF [facility] ESTIMATED GLOMERULAR FILTRATION RATE 102 mL/min/1.73m??? Normal >=60 [facility] Comment on above: Order Comment: Doroteo zavala Type: BLOOD SPECIMENOrdering Facility: [facility] Address: [address] Result Comment: Lola mated Glomerular Filtration Rate (eGFR) is calculated using the 2020 CKD-EPI creatinine equation. This equation utilizes serum creatinine, sex, and age as parameters. The creatinine assay has traceable calibration to isotope dilution-mass spectrometry. Refer to KDIGO guidelines for clinical interpretation. In patients with unstable renal function, e.g. those with acute kidney injury, the eGFR may not accurately reflect actual GFR. Performed By: #### 2 43205-17, 1987-09, ####[facility]ORATORYCLIA [id number] [place] [address] [place] Glucose [Mass/Vol] 174 mg/dL High 74-99 [facility] Comment on above: Order Comment: Salinacaryn lucas Type: BLOOD SPECIMENOrdering Facility: [facility] Address: [address] [phone] Result Comment: The [place] Diabetes Association (ADA) provides guidance for cutoff values for fasting glucose and random glucose. The ADA defines fasting as no caloric intake for at least 8 hours. Fasting plasma glucose results between 100 to 125 mg/dL indicate increased risk for diabetes (prediabetes).Fasting plasma glucose results greater than or equal to 126 mg/dL meet the criteria for diagnosis of diabetes. In the absence of unequivocal hyperglycemia, results should be confirmed by repeat testing. In a patient with classic symptoms of hyperglycemia or hyperglycemic crisis, random plasma glucose results greater than or equal to 200 mg/dL meet the criteria for diagnosis of diabetes.Reference: Standards of Medical Care in Diabetes 2016, [place] [employer]. Diabetes Care. 2016.39(Suppl 1). Performed By: #### 2 4320-06, 1987-09, 95763-6 ####[facility]ORATORYCLIA [id number] [place] [address] [place] Potassium [Moles/Vol] 4.1 mmol/L Normal 3.7-5.1 [facility] Comment on above: Order Comment: Speci men Type: BLOOD SPECIMENOrdering Facility: [facility] Address: [address] [place] [address] Performed By: #### 2 4320-06, 1987-09, 45774-7 ####[facility]ORATORYCLIA [id number] [address] STATES OF [facility] Sodium [Moles/Vol] 133 mmol/L Low 136-144 [facility] Comment on above: Order Comment: Speci men Type: BLOOD SPECIMENOrdering Facility: [facility] Address: [address] [place] [address] Performed By: #### 2 4320-06, 1987-09, 62572-3 ####[facility]ORATORYCLIA [id number] [address] [place] Urea nitrogen [Mass/Vol] 19 mg/dL Normal 9-24 [facility] Comment on above: Order Comment: Speci men Type: BLOOD SPECIMENOrdering Facility: [facility] Address: [address] [place] [address] Performed By: #### 2 4320-06, 1987-09, 98031-1 ####[facility]ORATORYCLIA [id number] [place] [address] [place] CASE MANAGEMon 11-30-2022 CASE MANAGEM Normal [facility] CBC panel Auto (Bld)on 11-30 Erythrocyte distribution width (RBC) [Ratio] 15.4 % High 11.5-15.0 [facility] Comment on above: Order Comment: Speci men Type: BLOOD SPECIMENOrdering Facility: [facility] Address: [address] [place] [address] Performed By: #### 5 8410-2 ####[facility]ORATORYCLIA [id number] [address] Hematocrit (Bld) [Volume fraction] 26.5 % Low 39.0-51.0 [facility] Comment on above: Order Comment: Speci men Type: BLOOD SPECIMENOrdering Facility: [facility] Address: [address] [place] [address] Performed By: #### 5 8410-2 ####[facility]ORATORYCLIA [id number] [address] OF [facility] Hemoglobin (Bld) [Mass/Vol] 7.9 g/dL Low 13.0-17.0 [facility] Comment on above: Order Comment: Speci men Type: BLOOD SPECIMENOrdering Facility: [facility] Address: [address] [place] [address] Performed By: #### 5 8410-2 ####[facility]ORATORYCLIA [id number] [address] MCH (RBC) [Entitic mass] 25.2 pg Low 26.0-34.0 [facility] Comment on above: Order Comment: Speci men Type: BLOOD SPECIMENOrdering Facility: [facility] Address: [address] [place] [address] Performed By: #### 5 8410-2 ####[facility]ATORYCLIA [id number] [address] [place] MCHC (RBC) [Mass/Vol] 29.8 g/dL Low 30.5-36.0 [facility] Comment on above: Order Comment: Speci men Type: BLOOD SPECIMENOrdering Facility: [facility] Address: [address] [place] [address] Performed By: #### 5 8410-2 ####[facility]ORATORYCLIA [id number] [address] [place] MCV (RBC) [Entitic vol] 84.7 fL Normal 80.0-100.0 [facility] Comment on above: Order Comment: Speci men Type: BLOOD SPECIMENOrdering Facility: [facility] Address: [address] [place] [address] Performed By: #### 5 8410-2 ####[facility]ATORYCLIA [id number] [address] [place] Nucleated RBC (Bld) [#/Vol] 10*3/uL Normal <0.01 [facility] Comment on above: Order Comment: Speci men Type: BLOOD SPECIMENOrdering Facility: [facility] Address: [address] [address] Performed By: #### 5 8410-2 ####[facility]ORATORYCLIA [id number] [address] [place] Platelet mean volume (Bld) [Entitic vol] 9.2 fL Normal 9.0-12.7 [facility] Comment on above: Order Comment: Speci men Type: BLOOD SPECIMENOrdering Facility: [facility] Address: [address] [address] Performed By: #### 5 8410-2 ####[facility]ATORYCLIA [id number] [address] [place] Platelets (Bld) [#/Vol] 358 10*3/uL Normal 150-400 [facility] Comment on above: Order Comment: Speci men Type: BLOOD SPECIMENOrdering Facility: [facility] Address: [address] [address] Performed By: #### 5 8410-2 ####[facility]ORATORYCLIA [id number] [place] [address] [place] RBC (Bld) [#/Vol] 3.13 10*6/uL Low 4.20-6.00 [facility] Comment on above: Order Comment: Speci men Type: BLOOD SPECIMENOrdering Facility: [facility] Address: [address] [address] Performed By: #### 5 8410-2 ####[facility]ORATORYCLIA [id number] [place], [place] [id number] [place] [address] OF [place] WBC (Bld) [#/Vol] 8.08 10*3/uL Normal 3.70-11.00 [facility] Comment on above: Order Comment: Speci men Type: BLOOD SPECIMENOrdering Facility: [facility] Address: [address] [place] [address] Performed By: #### 5 8410-2 ####[facility]ORATORYCLIA [id number] [address] [id number] [facility] CONSULTon 11-30-2022 CONSULT Normal [facility] CONSULT PROGon 11-30-2022 CONSULT PROG Normal [facility] CRP SerPl-mCncon 11-30-2022 CRP [Mass/Vol] 6.4 mg/dL High <0.9 [facility] Comment on above: Order Comment: Speci men Type: BLOOD SPECIMENOrdering Facility: [facility] Address: [address] [place] [address] Performed By: #### 2 4321-2, 1987-09, 22321-0 ####[facility]ORATORYCLIA [id number] [address] NUTRITIONon 11-30-2022 NUTRITION Normal [facility] Procalcitonin SerPl-mCncon 0 11-30-2022 Procalcitonin [Mass/Vol] 0.22 ng/mL High <0.09 [facility] Comment on above: Order Comment: Speci men Type: BLOOD SPECIMENOrdering Facility: [facility] Address: [address] [place] [address] Result Comment: For a guided interpretation of test results, please visit the Change in Procalcitonin Calculator, [email or web address]. Performed By: #### 2 4321-2, 1987-09, 57156-0 ####[facility]ORATORYCLIA [id number] [place] [address] [facility] [place] Basic metabolic 2000 panelon 11-29-2022 Anion gap [Moles/Vol] 6 mmol/L Low 9-18 [facility] Comment on above: Order Comment: Speci men Type: BLOOD SPECIMENOrdering Facility: [facility] Address: [address] [place] [address] Performed By: #### 2 4321-2 ####[facility] LABORATORYCLIA [id number] [place] [address] [place] Calcium [Mass/Vol] 8.4 mg/dL Low 8.5-10.2 [facility] Comment on above: Order Comment: Speci men Type: BLOOD SPECIMENOrdering Facility: [facility] Address: [address] [place] [address] Performed By: #### 2 1-2 ####[facility]ORATORYCLIA [id number] [place] [address] [place] Chloride [Moles/Vol] 94 mmol/L Low 97-105 [facility] Comment on above: Order Comment: Speci men Type: BLOOD SPECIMENOrdering Facility: [facility] Address: [address] [place] [address] Performed By: #### 2 1-2 ####[facility]ORATORYCLIA [id number] [place] [address] [place] CO2 [Moles/Vol] 32 mmol/L High 22-30 [facility] Comment on above: Order Comment: Speci men Type: BLOOD SPECIMENOrdering Facility: [facility] HOSPITAL Address: [address] [place] [address] Performed By: #### 2 4321-2 ####[facility] LABORATORYCLIA [id number] [place] [address] [place] Creatinine [Mass/Vol] 0.79 mg/dL Normal 0.73-1.22 [facility] Comment on above: Order Comment: Speci men Type: BLOOD SPECIMENOrdering Facility: [facility] Address: [address] [place] [address] Performed By: #### 2 4321-2 ####[facility]ATORYCLIA [id number] [place] [address] [place] ESTIMATED GLOMERULAR FILTRATION RATE 105 mL/min/1.73m??? Normal >=60 [facility] Comment on above: Order Comment: Doroteo zavala Type: BLOOD SPECIMENOrdering Facility: [facility] Address: [address] [place] [address] Result Comment: Lola mated Glomerular Filtration Rate (eGFR) is calculated using the 2020 CKD-EPI creatinine equation. This equation utilizes serum creatinine, sex, and age as parameters. The creatinine assay has traceable calibration to isotope dilution-mass spectrometry. Refer to KDIGO guidelines for clinical interpretation. In patients with unstable renal function, e.g. those with acute kidney injury, the eGFR may not accurately reflect actual GFR. Performed By: #### 2 4321-2 ####[facility]ORATORYCLIA [id number] [place] [address] [place] Glucose [Mass/Vol] 164 mg/dL High 74-99 [facility] Comment on above: Order Comment: Doroteo zavala Type: BLOOD SPECIMENOrdering Facility: [facility] Address: [address] [place] [address] Result Comment: The [place] Diabetes Association (ADA) provides guidance for cutoff values for fasting glucose and random glucose. The ADA defines fasting as no caloric intake for at least 8 hours. Fasting plasma glucose results between 100 to 125 mg/dL indicate increased risk for diabetes (prediabetes).Fasting plasma glucose results greater than or equal to 126 mg/dL meet the criteria for diagnosis of diabetes. In the absence of unequivocal hyperglycemia, results should be confirmed by repeat testing. In a patient with classic symptoms of hyperglycemia or hyperglycemic crisis, random plasma glucose results greater than or equal to 200 mg/dL meet the criteria for diagnosis of diabetes.Reference: Standards of Medical Care in Diabetes 2016, [place] [employer]. Diabetes Care. 2016.39(Suppl 1). Performed By: #### 2 4321-2 ####[facility]ORATORYCLIA [id number] [place] [id number] [place] Potassium [Moles/Vol] 4.3 mmol/L Normal 3.7-5.1 [facility] Comment on above: Order Comment: Doroteo zavala Type: BLOOD SPECIMENOrdering Facility: [facility] Address: [address] [address] Performed By: #### 2 4321-2 ####[facility]ORATORYCLIA [id number] [address] STATES [facility] Sodium [Moles/Vol] 132 mmol/L Low 136-144 [facility] Comment on above: Order Comment: Speci men Type: BLOOD SPECIMENOrdering Facility: [facility] Address: [address] [place] [address] Performed By: #### 2 4321-2 ####[facility]ORATORYCLIA [id number] [place] [address] [place] Urea nitrogen [Mass/Vol] 18 mg/dL Normal 9-24 [facility] Comment on above: Order Comment: Speci men Type: BLOOD SPECIMENOrdering Facility: [facility] Address: [address] [place] [address] Performed By: #### 2 4321-2 ####[facility]ORATORYCLIA [id number] [address] [place] CASE MANAGEMon 11-29-2022 CASE MANAGEM Normal [facility] CBC panel Auto (Bld)on 11-29 Erythrocyte distribution width (RBC) [Ratio] 15.3 % High 11.5-15.0 [facility] Comment on above: Order Comment: Speci men Type: BLOOD SPECIMENOrdering Facility: [facility] Address: [address] [place] [address] Performed By: #### 5 8410-2 ####[facility] LABORATORYCLIA [id number] [address] STATES OF [facility] Hematocrit (Bld) [Volume fraction] 26.6 % Low 39.0-51.0 [facility] Comment on above: Order Comment: Speci men Type: BLOOD SPECIMENOrdering Facility: [facility] Address: [address] [place] [address] Performed By: #### 5 8410-2 ####[facility]ORATORYCLIA [id number] [address] Hemoglobin (Bld) [Mass/Vol] 7.8 g/dL Low 13.0-17.0 [facility] Comment on above: Order Comment: Speci men Type: BLOOD SPECIMENOrdering Facility: [facility] Address: [address] [place] [address] Performed By: #### 5 8410-2 ####[facility]ORATORYCLIA [id number] [address] MCH (RBC) [Entitic mass] 24.9 pg Low 26.0-34.0 [facility] Comment on above: Order Comment: Speci men Type: BLOOD SPECIMENOrdering Facility: [facility] Address: [address] [place] [address] Performed By: #### 5 8410-2 ####[facility]ORATORYCLIA [id number] [address] MCHC (RBC) [Mass/Vol] 29.3 g/dL Low 30.5-36.0 [facility] Comment on above: Order Comment: Speci men Type: BLOOD SPECIMENOrdering Facility: [facility] Address: [address] [place] [address] Performed By: #### 5 8410-2 ####[facility]ORATORYCLIA [id number] [address] MCV (RBC) [Entitic vol] 85.0 fL Normal 80.0-100.0 [facility] Comment on above: Order Comment: Speci men Type: BLOOD SPECIMENOrdering Facility: [facility] Address: [address] [place] [address] Performed By: #### 5 8410-2 ####[facility]ORATORYCLIA [id number] [address] Nucleated RBC (Bld) [#/Vol] 10*3/uL Normal <0.01 [facility] Comment on above: Order Comment: Speci men Type: BLOOD SPECIMENOrdering Facility: [facility] Address: [address] [address] Performed By: #### 5 8410-2 ####[facility]ORATORYCLIA [id number] [address] [place] Platelet mean volume (Bld) [Entitic vol] 9.5 fL Normal 9.0-12.7 [facility] Comment on above: Order Comment: Speci men Type: BLOOD SPECIMENOrdering Facility: [facility] Address: [address] [address] Performed By: #### 5 8410-2 ####[facility]ORATORYCLIA [id number] [place] [address] [place] Platelets (Bld) [#/Vol] 374 10*3/uL Normal 150-400 [facility] Comment on above: Order Comment: Speci men Type: BLOOD SPECIMENOrdering Facility: [facility] Address: [address] [address] Performed By: #### 5 8410-2 ####[facility]ATORYCLIA [id number] [place] [address] [place] RBC (Bld) [#/Vol] 3.13 10*6/uL Low 4.20-6.00 [facility] Comment on above: Order Comment: Speci men Type: BLOOD SPECIMENOrdering Facility: [facility] Address: [address] [place] [address] Performed By: #### 5 8410-2 ####[facility]ORATORYCLIA [id number] [address] [place] WBC (Bld) [#/Vol] 9.38 10*3/uL Normal 3.70-11.00 [facility] Comment on above: Order Comment: Speci men Type: BLOOD SPECIMENOrdering Facility: [facility] Address: [address] [place] [address] Performed By: #### 5 8410-2 ####[facility]ORATORYCLIA [id number] [address] OF [facility] CONSULT PROGon 11-29-2022 CONSULT PROG Normal [facility] CONSULT PROG Normal [facility] CONSULT PROG Normal [facility] THERAPY NTon 11-29-2022 THERAPY NT Normal [facility] THERAPY NT Normal [facility] Vancomycin random [Mass/Vol] on 11-29-2022 Vancomycin [Mass/Vol] 20.3 ug/mL High 10.0-20.0 [facility] Comment on above: Order Comment: Speci men Type: BLOOD SPECIMENOrdering Facility: [facility] Address: [address] [place] [address] Result Comment: Refe rence ranges and high/low indicator flags are provided as general guidelines only. The treating physician must determine appropriate target levels/dosing based on the specific clinical situation. Performed By: #### 4 091-5 ####[facility]ORATORYCLIA [id number] [place] [address] [place] ALLIED HEALTHon 11-28-2022 ALLIED HEALTH Normal [facility] Basic metabolic 2000 panelon 11-28-2022 Anion gap [Moles/Vol] 9 mmol/L Normal 9-18 [facility] Comment on above: Order Comment: Speci men Type: BLOOD SPECIMENOrdering Facility: [facility] Address: [address] [place] [address] Performed By: #### 2 4321-2 ####[facility]ATORYCLIA [id number] [place] [address] [place] Calcium [Mass/Vol] 8.4 mg/dL Low 8.5-10.2 [facility] Comment on above: Order Comment: Speci men Type: BLOOD SPECIMENOrdering Facility: [facility] Address: [address] [place] [address] Performed By: #### 2 4321-2 ####[facility]ORATORYCLIA [id number] [address] [place] Chloride [Moles/Vol] 94 mmol/L Low 97-105 [facility] Comment on above: Order Comment: Speci men Type: BLOOD SPECIMENOrdering Facility: [facility] Address: [address] [place] [address] Performed By: #### 2 4321-2 ####[facility]ORATORYCLIA [id number] [address] [place] CO2 [Moles/Vol] 30 mmol/L Normal 22-30 [facility] Comment on above: Order Comment: Speci men Type: BLOOD SPECIMENOrdering Facility: [facility] Address: [address] [place] [address] Performed By: #### 2 4321-2 ####[facility]ATORYCLIA [id number] [address] [place] Creatinine [Mass/Vol] 0.78 mg/dL Normal 0.73-1.22 [facility] Comment on above: Order Comment: Speci men Type: BLOOD SPECIMENOrdering Facility: [facility] Address: [address] [place] [address] Performed By: #### 2 4321-2 ####[facility] BLOOMINGTONIA [id number] [address] ESTIMATED GLOMERULAR FILTRATION RATE 105 mL/min/1.73m??? Normal >=60 [facility] Comment on above: Order Comment: Salinai men Type: BLOOD SPECIMENOrdering Facility: [facility] Address: [address] [place] [address] Result Comment: Lola mated Glomerular Filtration Rate (eGFR) is calculated using the 2020 CKD-EPI creatinine equation. This equation utilizes serum creatinine, sex, and age as parameters. The creatinine assay has traceable calibration to isotope dilution-mass spectrometry. Refer to KDIGO guidelines for clinical interpretation. In patients with unstable renal function, e.g. those with acute kidney injury, the eGFR may not accurately reflect actual GFR. Performed By: #### 2 4321-2 ####[facility]ORATORYCLIA [id number] [address] [place] Glucose [Mass/Vol] 160 mg/dL High 74-99 [facility] Comment on above: Order Comment: Speci men Type: BLOOD SPECIMENOrdering Facility: [facility] Address: [address] [place] [address] Result Comment: The [place] Diabetes Association (ADA) provides guidance for cutoff values for fasting glucose and random glucose. The ADA defines fasting as no caloric intake for at least 8 hours. Fasting plasma glucose results between 100 to 125 mg/dL indicate increased risk for diabetes (prediabetes).Fasting plasma glucose results greater than or equal to 126 mg/dL meet the criteria for diagnosis of diabetes. In the absence of unequivocal hyperglycemia, results should be confirmed by repeat testing. In a patient with classic symptoms of hyperglycemia or hyperglycemic crisis, random plasma glucose results greater than or equal to 200 mg/dL meet the criteria for diagnosis of diabetes.Reference: Standards of Medical Care in Diabetes 2016, [place] [employer]. Diabetes Care. 2016.39(Suppl 1). Performed By: #### 2 4321-2 ####[facility]ORATORYCLIA [id number] [place] [address] [place] Potassium [Moles/Vol] 4.0 mmol/L Normal 3.7-5.1 [facility] Comment on above: Order Comment: Speci men Type: BLOOD SPECIMENOrdering Facility: [facility] Address: [address] [place] [address] Performed By: #### 2 4321-2 ####[facility]ORATORYCLIA [id number] [place] [address] [place] Sodium [Moles/Vol] 133 mmol/L Low 136-144 [facility] Comment on above: Order Comment: Speci men Type: BLOOD SPECIMENOrdering Facility: [facility] Address: [address] [place] [address] Performed By: #### 2 4321-2 ####[facility]ORATORYCLIA [id number] [place] [address] [place] Urea nitrogen [Mass/Vol] 17 mg/dL Normal 9-24 [facility] Comment on above: Order Comment: Speci men Type: BLOOD SPECIMENOrdering Facility: [facility] Address: [address] [place] [address] Performed By: #### 2 4321-2 ####[facility]ORATORYCLIA [id number] [address] CBC panel Auto (Bld)on 11-28 Erythrocyte distribution width (RBC) [Ratio] 15.1 % High 11.5-15.0 [facility] Comment on above: Order Comment: Speci men Type: BLOOD SPECIMENOrdering Facility: [facility] Address: [address] [place] [address] Performed By: #### 5 8410-2 ####[facility]ORATORYCLIA [id number] [address] Hematocrit (Bld) [Volume fraction] 25.4 % Low 39.0-51.0 [facility] Comment on above: Order Comment: Speci men Type: BLOOD SPECIMENOrdering Facility: [facility] Address: [address] [place] [address] Performed By: #### 5 8410-2 ####[facility]ATORYCLIA [id number] [address] Hemoglobin (Bld) [Mass/Vol] 7.7 g/dL Low 13.0-17.0 [facility] Comment on above: Order Comment: Speci men Type: BLOOD SPECIMENOrdering Facility: [facility] Address: [address] [place] [address] Performed By: #### 5 8410-2 ####[facility]ORATORYCLIA [id number] [address] MCH (RBC) [Entitic mass] 25.4 pg Low 26.0-34.0 [facility] Comment on above: Order Comment: Speci men Type: BLOOD SPECIMENOrdering Facility: [facility] Address: [address] [place] [address] Performed By: #### 5 8410-2 ####[facility]ATORYCLIA [id number] [address] STATES [facility] MCHC (RBC) [Mass/Vol] 30.3 g/dL Low 30.5-36.0 [facility] Comment on above: Order Comment: Speci men Type: BLOOD SPECIMENOrdering Facility: [facility] Address: [address] [place] [address] Performed By: #### 5 8410-2 ####[facility]ATORYCLIA [id number] [address] MCV (RBC) [Entitic vol] 83.8 fL Normal 80.0-100.0 [facility] Comment on above: Order Comment: Speci men Type: BLOOD SPECIMENOrdering Facility: [facility] Address: [address] [place] [address] Performed By: #### 5 8410-2 ####[facility]ATORYCLIA [id number] [address] Nucleated RBC (Bld) [#/Vol] 10*3/uL Normal <0.01 [facility] Comment on above: Order Comment: Speci men Type: BLOOD SPECIMENOrdering Facility: [facility] Address: [address] [place] [address] Performed By: #### 5 8410-2 ####[facility]ATORYCLIA [id number] [address] Platelet mean volume (Bld) [Entitic vol] 9.5 fL Normal 9.0-12.7 [facility] Comment on above: Order Comment: Speci men Type: BLOOD SPECIMENOrdering Facility: [facility] Address: [address] [place] [address] Performed By: #### 5 8410-2 ####[facility]ATORYCLIA [id number] [address] Platelets (Bld) [#/Vol] 352 10*3/uL Normal 150-400 [facility] Comment on above: Order Comment: Speci men Type: BLOOD SPECIMENOrdering Facility: [facility] Address: [address] [place] [address] Performed By: #### 5 8410-2 ####[facility]ORATORYCLIA [id number] [place] [address] [place] RBC (Bld) [#/Vol] 3.03 10*6/uL Low 4.20-6.00 [facility] Comment on above: Order Comment: Speci men Type: BLOOD SPECIMENOrdering Facility: [facility] Address: [address] [place] [address] Performed By: #### 5 8410-2 ####[facility]ATORYCLIA [id number] [place] [address] [place] WBC (Bld) [#/Vol] 9.00 10*3/uL Normal 3.70-11.00 [facility] Comment on above: Order Comment: Speci men Type: BLOOD SPECIMENOrdering Facility: [facility] Address: [address] [place] [address] Performed By: #### 5 8410-2 ####[facility]ORATORYCLIA [id number] [address] CONSULT PROGon 11-28-2022 CONSULT PROG Normal [facility] XR CHEST 1V FRONTALon 2022 XR CHEST 1V FRONTAL Normal [facility] ALLIED HEALTHon 11-27-2022 ALLIED HEALTH Normal [facility] ARTERIAL BLOOD GASESon 11-27 Base excess Calc (Bld) [Moles/Vol] 4 mmol/L High 0-2 [facility] Comment on above: Order Comment: Speci men Type: ARTERIAL BLOOD SPECIMENOrdering Facility: [facility] Address: [address] [place] [address] Performed By: #### A LLBG ####[facility]ORATORYCLIA [id number] [address] [place] [facility] Body temperature 98.6 [degF] Normal [facility] Comment on above: Order Comment: Speci men Type: ARTERIAL BLOOD SPECIMENOrdering Facility: [facility] Address: [address] [place] [address] Performed By: #### A LLBG ####[facility]ORATORYCLIA [id number] [address] [place] Calcium.ionized (BldV) [Mass/Vol] 1.14 mmol/L Normal 1.08-1.30 [facility] Comment on above: Order Comment: Speci men Type: ARTERIAL BLOOD SPECIMENOrdering Facility: [facility] Address: [address] [place] [address] Performed By: #### A LLBG ####[facility]ORATORYCLIA [id number] [place] [address] [place] Calcium.ionized adjusted to pH 7.4 (BldA) [Moles/Vol] 1.12 mmol/L Normal 1.08-1.30 [facility] Comment on above: Order Comment: Speci men Type: ARTERIAL BLOOD SPECIMENOrdering Facility: [facility] Address: [address] [place] [address] Performed By: #### A LLBG ####[facility]ATORYCLIA [id number] [address] [place] Carboxyhemoglobin (BldA) [Mass fraction] 1.8 % Normal 0.0-2.0 [facility] Comment on above: Order Comment: Speci men Type: ARTERIAL BLOOD SPECIMENOrdering Facility: [facility] Address: [address] [place] [address] Result Comment: Carb oxyhemoglobin Reference Range for Smokers: 2.0-8.0% Performed By: #### A LLBG ####[facility]ATORYCLIA [id number] [place] [address] [place] Chloride [Moles/Vol] 99 mmol/L Low 102-109 [facility] Comment on above: Order Comment: Speci men Type: ARTERIAL BLOOD SPECIMENOrdering Facility: [facility] Address: [address] [place] [address] Performed By: #### A LLBG ####[facility]ATORYCLIA [id number] [place] [address] [place] CO2 (Bld) [Partial pressure] 54 mm Hg High 36-46 [facility] Comment on above: Order Comment: Speci men Type: ARTERIAL BLOOD SPECIMENOrdering Facility: [facility] Address: [address] [address] Performed By: #### A LLBG ####[facility]ORATORYCLIA [id number] [address] [place] CO2 [Moles/Vol] 28 mmol/L Normal 22-28 [facility] Comment on above: Order Comment: Speci men Type: ARTERIAL BLOOD SPECIMENOrdering Facility: [facility] Address: [address] [place] [address] Performed By: #### A LLBG ####[facility]ATORYCLIA [id number] [address] [place] FIO2 50 % Normal [facility] Comment on above: Order Comment: Speci men Type: ARTERIAL BLOOD SPECIMENOrdering Facility: [facility] Address: [address] [place] [address] Performed By: #### A LLBG ####[facility]ORATORYCLIA [id number] [address] [place] Glucose [Mass/Vol] 206 mg/dL High 60-105 [facility] Comment on above: Order Comment: Speci men Type: ARTERIAL BLOOD SPECIMENOrdering Facility: [facility] Address: [address] [place] [address] Performed By: #### A LLBG ####[facility]ATORYCLIA [id number] [address] [place] HCO3 (Bld) [Moles/Vol] 30 mmol/L High 22-26 [facility] Comment on above: Order Comment: Speci men Type: ARTERIAL BLOOD SPECIMENOrdering Facility: [facility] Address: [address] [place] [address] Performed By: #### A LLBG ####[facility]ATORYCLIA [id number] [address] [place] Hematocrit (Bld) [Volume fraction] 26.4 % Low 39.0-51.0 [facility] Comment on above: Order Comment: Speci men Type: ARTERIAL BLOOD SPECIMENOrdering Facility: [facility] Address: [address] [address] Performed By: #### A LLBG ####[facility]ATORYCLIA [id number] [address] [place] Hemoglobin (Bld) [Mass/Vol] 8.5 g/dL Low 13.0-17.0 [facility] Comment on above: Order Comment: Speci men Type: ARTERIAL BLOOD SPECIMENOrdering Facility: [facility] Address: [address] [place] [address] Performed By: #### A LLBG ####[facility]ATORYCLIA [id number] [address] [place] Lactate [Moles/Vol] 0.8 mmol/L Normal 0.5-2.2 [facility] Comment on above: Order Comment: Speci men Type: ARTERIAL BLOOD SPECIMENOrdering Facility: [facility] Address: [address] [place] [address] Performed By: #### A LLBG ####[facility]ORYCLIA [id number] [address] [place] LITERS 15 Liters/min Normal [facility] Comment on above: Order Comment: Speci men Type: ARTERIAL BLOOD SPECIMENOrdering Facility: [facility] Address: [address] [place] [address] Performed By: #### A LLBG ####[facility]ORYCLIA [id number] [address] [place] Methemoglobin (Bld) [Mass fraction] 1.1 % Normal 0.0-1.5 [facility] Comment on above: Order Comment: Speci men Type: ARTERIAL BLOOD SPECIMENOrdering Facility: [facility] Address: [address] [place] [address] Performed By: #### A LLBG ####[facility]ATORYCLIA [id number] [address] [place] O2 THERAPY Venti Mask Normal [facility] Comment on above: Order Comment: Speci men Type: ARTERIAL BLOOD SPECIMENOrdering Facility: [facility] Address: [address] [place] [address] Performed By: #### A LLBG ####[facility]ORATORYCLIA [id number] [address] [place] Oxygen (Bld) [Partial pressure] 92 mm Hg Normal 85-95 [facility] Comment on above: Order Comment: Speci men Type: ARTERIAL BLOOD SPECIMENOrdering Facility: [facility] Address: [address] [place] [address] Performed By: #### A LLBG ####[facility]ATORYCLIA [id number] [address] [place] Oxyhemoglobin (BldA) [Mass fraction] 94 % Low 95-98 [facility] Comment on above: Order Comment: Speci men Type: ARTERIAL BLOOD SPECIMENOrdering Facility: [facility] Address: [address] [place] [address] Performed By: #### A LLBG ####[facility] LABORATORYCLIA [id number] [place] [address] [place] pH (Bld) 7.36 [pH] Normal 7.35-7.45 [facility] Comment on above: Order Comment: Speci men Type: ARTERIAL BLOOD SPECIMENOrdering Facility: [facility] Address: [address] [place] [address] Performed By: #### A LLBG ####[facility]ORATORYCLIA [id number] [place] [address] [place] Potassium [Moles/Vol] 4.1 mmol/L Normal 3.5-5.0 [facility] Comment on above: Order Comment: Speci men Type: ARTERIAL BLOOD SPECIMENOrdering Facility: [facility] Address: [address] [place] [address] Performed By: #### A LLBG ####[facility]ORATORYCLIA [id number] [place] [address] [place] Sodium [Moles/Vol] 135 mmol/L Low 136-144 [facility] Comment on above: Order Comment: Speci men Type: ARTERIAL BLOOD SPECIMENOrdering Facility: [facility] Address: [address] [place] [address] Performed By: #### A LLBG ####[facility]ORATORYCLIA [id number] [address] Bacteria Spec Resp Culton Bacteria identified Respiratory culture Nom (Unsp spec) Abnormal [facility] Comment on above: Performed By: #### 3 2355-0 ####[facility]ORATORYCLIA [id number] [address] OF [facility] CBC W Auto Differential pane l (Bld)on 11-27-2022 Basophils (Bld) [#/Vol] 0.05 10*3/uL Normal <0.11 [facility] Comment on above: Order Comment: Speci men Type: BLOOD SPECIMENOrdering Facility: [facility] Address: [address] [place] [address] Performed By: #### 5 7021-8 ####[facility]ORATORYCLIA [id number] [address] Basophils/100 WBC (Bld) 0.4 % Normal [facility] Comment on above: Order Comment: Speci men Type: BLOOD SPECIMENOrdering Facility: [facility] Address: [address] [place] [address] Performed By: #### 5 7021-8 ####[facility]ORATORYCLIA [id number] [address] Differential cell count method Nom (Bld) Auto Normal [facility] Comment on above: Order Comment: Speci men Type: BLOOD SPECIMENOrdering Facility: [facility] Address: [address] [place] [address] Performed By: #### 5 7021-8 ####[facility]ORATORYCLIA [id number] [address] [place] Eosinophils (Bld) [#/Vol] 0.27 10*3/uL Normal <0.46 [facility] Comment on above: Order Comment: Speci men Type: BLOOD SPECIMENOrdering Facility: [facility] Address: [address] [place] [address] Performed By: #### 5 7021-8 ####[facility]ORATORYCLIA [id number] [address] [place] Eosinophils/100 WBC (Bld) 2.3 % Normal [facility] Comment on above: Order Comment: Speci men Type: BLOOD SPECIMENOrdering Facility: [facility] Address: [address] [place] [address] Performed By: #### 5 7021-8 ####[facility]ORATORYCLIA [id number] [address] Erythrocyte distribution width (RBC) [Ratio] 14.6 % Normal 11.5-15.0 [facility] Comment on above: Order Comment: Speci men Type: BLOOD SPECIMENOrdering Facility: [facility] Address: [address] [place] [address] Performed By: #### 5 7021-8 ####[facility]ORATORYCLIA [id number] [address] Hematocrit (Bld) [Volume fraction] 28.1 % Low 39.0-51.0 [facility] Comment on above: Order Comment: Speci men Type: BLOOD SPECIMENOrdering Facility: [facility] Address: [address] [place] [address] Performed By: #### 5 7021-8 ####[facility]ORATORYCLIA [id number] [address] [place] Hemoglobin (Bld) [Mass/Vol] 8.4 g/dL Low 13.0-17.0 [facility] Comment on above: Order Comment: Speci men Type: BLOOD SPECIMENOrdering Facility: [facility] Address: [address] [place] [address] Performed By: #### 5 7021-8 ####[facility]ORATORYCLIA [id number] [place] [address] [place] Immature granulocytes (Bld) [#/Vol] 0.11 10*3/uL High <0.10 [facility] Comment on above: Order Comment: Speci men Type: BLOOD SPECIMENOrdering Facility: [facility] Address: [address] [place] [address] Performed By: #### 5 7021-8 ####[facility]ORATORYCLIA [id number] [address] Immature granulocytes/100 WBC (Bld) 0.9 % Normal [facility] Comment on above: Order Comment: Speci men Type: BLOOD SPECIMENOrdering Facility: [facility] Address: [address] [place] [address] Performed By: #### 5 7021-8 ####[facility]ORATORYCLIA [id number] [address] STATES [facility] Lymphocytes (Bld) [#/Vol] 1.83 10*3/uL Normal 1.00-4.00 [facility] Comment on above: Order Comment: Speci men Type: BLOOD SPECIMENOrdering Facility: [facility] Address: [address] [place] [address] Performed By: #### 5 7021-8 ####[facility]ORATORYCLIA [id number] [address] Lymphocytes/100 WBC (Bld) 15.7 % Normal [facility] Comment on above: Order Comment: Speci men Type: BLOOD SPECIMENOrdering Facility: [facility] Address: [address] [place] [address] Performed By: #### 5 7021-8 ####[facility]ORATORYCLIA [id number] [address] [place] MCH (RBC) [Entitic mass] 25.6 pg Low 26.0-34.0 [facility] Comment on above: Order Comment: Speci men Type: BLOOD SPECIMENOrdering Facility: [facility] Address: [address] [place] [address] Performed By: #### 5 7021-8 ####[facility]ORATORYCLIA [id number] [address] [place] MCHC (RBC) [Mass/Vol] 29.9 g/dL Low 30.5-36.0 [facility] Comment on above: Order Comment: Speci men Type: BLOOD SPECIMENOrdering Facility: [facility] Address: [address] [place] [address] Performed By: #### 5 7021-8 ####[facility]ORATORYCLIA [id number] [address] [place] MCV (RBC) [Entitic vol] 85.7 fL Normal 80.0-100.0 [facility] Comment on above: Order Comment: Speci men Type: BLOOD SPECIMENOrdering Facility: [facility] Address: [address] [place] [address] Performed By: #### 5 7021-8 ####[facility]ORATORYCLIA [id number] [address] [place] Monocytes (Bld) [#/Vol] 0.83 10*3/uL Normal <0.87 [facility] Comment on above: Order Comment: Speci men Type: BLOOD SPECIMENOrdering Facility: [facility] Address: [address] [place] [address] Performed By: #### 5 7021-8 ####[facility]ORATORYCLIA [id number] [address] Monocytes/100 WBC (Bld) 7.1 % Normal [facility] Comment on above: Order Comment: Speci men Type: BLOOD SPECIMENOrdering Facility: [facility] Address: [address] [place] [address] Performed By: #### 5 7021-8 ####[facility]ORATORYCLIA [id number] [address] [place] Neutrophils (Bld) [#/Vol] 8.59 10*3/uL High 1.45-7.50 [facility] Comment on above: Order Comment: Speci men Type: BLOOD SPECIMENOrdering Facility: [facility] Address: [address] [address] Performed By: #### 5 7021-8 ####[facility]ORATORYCLIA [id number] [address] Neutrophils/100 WBC (Bld) 73.6 % Normal [facility] Comment on above: Order Comment: Speci men Type: BLOOD SPECIMENOrdering Facility: [facility] Address: [address] [place] [address] Performed By: #### 5 7021-8 ####[facility] LABORATORYCLIA [id number] [address] [place] Nucleated RBC (Bld) [#/Vol] 10*3/uL Normal <0.01 [facility] Comment on above: Order Comment: Speci men Type: BLOOD SPECIMENOrdering Facility: [facility] Address: [address] [place] [address] Performed By: #### 5 7021-8 ####[facility]ORATORYCLIA [id number] [address] Nucleated RBC/100 WBC (Bld) [Ratio] 0.0 /100 WBC Normal [facility] Comment on above: Order Comment: Speci men Type: BLOOD SPECIMENOrdering Facility: [facility] Address: [address] [place] [address] Performed By: #### 5 7021-8 ####[facility]ORATORYCLIA [id number] [address] Platelet mean volume (Bld) [Entitic vol] 9.7 fL Normal 9.0-12.7 [facility] Comment on above: Order Comment: Speci men Type: BLOOD SPECIMENOrdering Facility: [facility] Address: [address] [place] [address] Performed By: #### 5 7021-8 ####[facility]ORATORYCLIA [id number] [address] [place] Platelets (Bld) [#/Vol] 340 10*3/uL Normal 150-400 [facility] Comment on above: Order Comment: Speci men Type: BLOOD SPECIMENOrdering Facility: [facility] Address: [address] [place] [address] Performed By: #### 5 7021-8 ####[facility]ORATORYCLIA [id number] [place] [address] [place] RBC (Bld) [#/Vol] 3.28 10*6/uL Low 4.20-6.00 [facility] Comment on above: Order Comment: Speci men Type: BLOOD SPECIMENOrdering Facility: [facility] Address: [address] [place] [address] Performed By: #### 5 7021-8 ####[facility]ORATORYCLIA [id number] [address] STATES OF [facility] WBC (Bld) [#/Vol] 11.68 10*3/uL High 3.70-11.00 [facility] Comment on above: Order Comment: Speci men Type: BLOOD SPECIMENOrdering Facility: [facility] Address: [address] [place] [address] Performed By: #### 5 7021-8 ####[facility] LABORATORYCLIA [id number] [address] [place] CONSULT PROGon 11-27-2022 CONSULT PROG Normal [facility] CONSULT PROG Normal [facility] Comprehensive metabolic 2000 panelon 11-27-2022 Albumin [Mass/Vol] 2.9 g/dL Low 3.9-4.9 [facility] Comment on above: Order Comment: Speci men Type: BLOOD SPECIMENOrdering Facility: [facility] Address: [address] [place] [address] Performed By: #### 2 4323-8, 60652-1, 2777-1 ####[facility]ORATORYCLIA [id number] [address] [place] ALP [Catalytic activity/Vol] 81 U/L Normal 38-113 [facility] Comment on above: Order Comment: Speci men Type: BLOOD SPECIMENOrdering Facility: [facility] Address: [address] [place] [address] Performed By: #### 2 4323-8, , 2776-05 ####[facility]ORATORYCLIA [id number] [address] STATES OF [facility] ALT With P-5'-P [Catalytic activity/Vol] 20 U/L Normal 10-54 [facility] Comment on above: Order Comment: Speci men Type: BLOOD SPECIMENOrdering Facility: [facility] Address: [address] [place] [address] Performed By: #### 2 4323-8, , 2776-05 ####[facility]ORATORYCLIA [id number] [address] OF [facility] Anion gap [Moles/Vol] 9 mmol/L Normal 9-18 [facility] Comment on above: Order Comment: Speci men Type: BLOOD SPECIMENOrdering Facility: [facility] Address: [address] [place] [address] Performed By: #### 2 4323-8, , 2776-05 ####[facility]ORATORYCLIA [id number] [address] OF [facility] AST With P-5'-P [Catalytic activity/Vol] 18 U/L Normal 14-40 [facility] Comment on above: Order Comment: Speci men Type: BLOOD SPECIMENOrdering Facility: [facility] Address: [address] [place] [address] Performed By: #### 2 4323-8, , 2776-05 ####[facility]ORATORYCLIA [id number] [address] [place] Bilirubin [Mass/Vol] 0.3 mg/dL Normal 0.2-1.3 [facility] Comment on above: Order Comment: Speci men Type: BLOOD SPECIMENOrdering Facility: [facility] Address: [address] [place] [address] Performed By: #### 2 4323-8, , 2776-05 ####[facility]ORATORYCLIA [id number] [place] [address] [place] Calcium [Mass/Vol] 8.6 mg/dL Normal 8.5-10.2 [facility] Comment on above: Order Comment: Speci men Type: BLOOD SPECIMENOrdering Facility: [facility] Address: [address] [place] [address] Performed By: #### 2 4323-8, , 2776-05 ####[facility]ORATORYCLIA [id number] [place] [address] [place] Chloride [Moles/Vol] 96 mmol/L Low 97-105 [facility] Comment on above: Order Comment: Speci men Type: BLOOD SPECIMENOrdering Facility: [facility] Address: [address] [place] [address] Performed By: #### 2 432-8, , 2776-05 ####[facility]ORATORYCLIA [id number] [place] [address] [place] CO2 [Moles/Vol] 29 mmol/L Normal 22-30 [facility] Comment on above: Order Comment: Speci men Type: BLOOD SPECIMENOrdering Facility: [facility] Address: [address] [place] [address] Performed By: #### 2 4323-8, , 2776-05 ####[facility]ORATORYCLIA [id number] [place] [address] [place] Creatinine [Mass/Vol] 0.68 mg/dL Low 0.73-1.22 [facility] Comment on above: Order Comment: Speci men Type: BLOOD SPECIMENOrdering Facility: [facility] Address: [address] [place] [address] Performed By: #### 2 4323-8, , 2776-05 ####[facility] LABORATORYCLIA [id number] [place] [address] [place] ESTIMATED GLOMERULAR FILTRATION RATE 110 mL/min/1.73m??? Normal >=60 [facility] Comment on above: Order Comment: Salinacaryn zavala Type: BLOOD SPECIMENOrdering Facility: [facility] Address: [address] [place] [address] Result Comment: Lola mated Glomerular Filtration Rate (eGFR) is calculated using the 2020 CKD-EPI creatinine equation. This equation utilizes serum creatinine, sex, and age as parameters. The creatinine assay has traceable calibration to isotope dilution-mass spectrometry. Refer to KDIGO guidelines for clinical interpretation. In patients with unstable renal function, e.g. those with acute kidney injury, the eGFR may not accurately reflect actual GFR. Performed By: #### 2 4323-8, 71409-8, 2776-05 ####[facility]ITALCLIA [id number] [place] [address] [place] Glucose [Mass/Vol] 221 mg/dL High 74-99 [facility] Comment on above: Order Comment: Doroteo zavala Type: BLOOD SPECIMENOrdering Facility: [facility] Address: [address] [place] [address] Result Comment: The [place] Diabetes Association (ADA) provides guidance for cutoff values for fasting glucose and random glucose. The ADA defines fasting as no caloric intake for at least 8 hours. Fasting plasma glucose results between 100 to 125 mg/dL indicate increased risk for diabetes (prediabetes).Fasting plasma glucose results greater than or equal to 126 mg/dL meet the criteria for diagnosis of diabetes. In the absence of unequivocal hyperglycemia, results should be confirmed by repeat testing. In a patient with classic symptoms of hyperglycemia or hyperglycemic crisis, random plasma glucose results greater than or equal to 200 mg/dL meet the criteria for diagnosis of diabetes.Reference: Standards of Medical Care in Diabetes 2016, [place] [employer]. Diabetes Care. 2016.39(Suppl 1). Performed By: #### 2 4323-8, 68530-4, 2776- ####[facility] LABORATORYCLIA [id number] [place] [address] [place] Potassium [Moles/Vol] 4.1 mmol/L Normal 3.7-5.1 [facility] Comment on above: Order Comment: Speci men Type: BLOOD SPECIMENOrdering Facility: [facility] Address: [address] [place] [address] Performed By: #### 2 4323-8, , 2776-05 ####[facility]ORATORYCLIA [id number] [place] [address] [place] Protein [Mass/Vol] 6.8 g/dL Normal 6.3-8.0 [facility] Comment on above: Order Comment: Speci men Type: BLOOD SPECIMENOrdering Facility: [facility] Address: [address] [place] [address] Performed By: #### 2 4323-8, , 2776-05 ####[facility]ORATORYCLIA [id number] [place] [address] [place] Sodium [Moles/Vol] 134 mmol/L Low 136-144 [facility] Comment on above: Order Comment: Speci men Type: BLOOD SPECIMENOrdering Facility: [facility] Address: [address] [place] [address] Performed By: #### 2 4323-8, , 2776-05 ####[facility]ORATORYCLIA [id number] [place] [address] [place] Urea nitrogen [Mass/Vol] 15 mg/dL Normal 9-24 [facility] Comment on above: Order Comment: Speci men Type: BLOOD SPECIMENOrdering Facility: [facility] Address: [address] [place] [address] Performed By: #### 2 4323-8, , 2776-05 ####[facility]ORATORYCLIA [id number] [place] [address] [place] Magnesium SerPl-mCncon 11-27 Magnesium [Mass/Vol] 1.6 mg/dL Low 1.7-2.3 [facility] Comment on above: Order Comment: Speci men Type: BLOOD SPECIMENOrdering Facility: [facility] Address: [address] [place] [address] Performed By: #### 2 4323-8, 60358-3, 2777-1 ####[facility]ORATORYCLIA [id number] [address] NURSING PROGon 11-27-2022 NURSING PROG Normal [facility] Phosphate SerPl-mCncon 11-27 Phosphate [Mass/Vol] 3.8 mg/dL Normal 2.7-4.8 [facility] Comment on above: Order Comment: Speci men Type: BLOOD SPECIMENOrdering Facility: [facility] Address: [address] [phone] Performed By: #### 2 4323-8, 13973-7, 2777-1 ####[facility]ORATORYCLIA [id number] [address] XR CHEST 1V FRONTALon 2022 XR CHEST 1V FRONTAL Normal [facility] ALLIED HEALTHon 11-26-2022 ALLIED HEALTH Normal [facility] CASE MANAGEMon 11-26-2022 CASE MANAGEM Normal [facility] CONSULTon 11-26-2022 CONSULT Normal [facility] CONSULT PROGon 11-26-2022 CONSULT PROG Normal [facility] CONSULT PROG Normal [facility] CONSULT PROG Normal [facility] CT CHEST WO IVCONon 11-27-19 CT CHEST WO IVCON Normal [facility] NURSING PROGon 11-26-2022 NURSING PROG Normal [facility] THERAPY NTon 11-26-2022 THERAPY NT Normal [facility] THERAPY NT Normal [facility] Vancomycin random [Mass/Vol] on 11-26-2022 Vancomycin [Mass/Vol] 24.6 ug/mL High 10.0-20.0 [facility] Comment on above: Order Comment: Speci men Type: BLOOD SPECIMENOrdering Facility: [facility] Address: [address] [phone] Result Comment: Refe rence ranges and high/low indicator flags are provided as general guidelines only. The treating physician must determine appropriate target levels/dosing based on the specific clinical situation. Performed By: #### 4 091-5 ####[facility]ORATORYCLIA [id number] [place] [address] [place] ALLIED HEALTHon 11-25-2022 ALLIED HEALTH Normal [facility] CASE MANAGEMon 11-25-2022 CASE MANAGEM Normal [facility] CBC W Auto Differential pane l (Bld)on 11-25-2022 Basophils (Bld) [#/Vol] 0.06 10*3/uL Normal <0.11 [facility] Comment on above: Order Comment: Speci men Type: BLOOD SPECIMENOrdering Facility: [facility] Address: [address] [place] [address] Performed By: #### 5 7021-8 ####[facility]ORATORYCLIA [id number] [address] [place] Basophils/100 WBC (Bld) 0.5 % Normal [facility] Comment on above: Order Comment: Speci men Type: BLOOD SPECIMENOrdering Facility: [facility] Address: [address] [address] Performed By: #### 5 7021-8 ####[facility]ORATORYCLIA [id number] [address] [place] Differential cell count method Nom (Bld) Auto Normal [facility] Comment on above: Order Comment: Speci men Type: BLOOD SPECIMENOrdering Facility: [facility] Address: [address] [address] Performed By: #### 5 7021-8 ####[facility]ORATORYCLIA [id number] [place] [address] [place] Eosinophils (Bld) [#/Vol] 0.36 10*3/uL Normal <0.46 [facility] Comment on above: Order Comment: Speci men Type: BLOOD SPECIMENOrdering Facility: [facility] Address: [address] [address] Performed By: #### 5 7021-8 ####[facility]ORATORYCLIA [id number] [address] STATES [facility] Eosinophils/100 WBC (Bld) 3.0 % Normal [facility] Comment on above: Order Comment: Speci men Type: BLOOD SPECIMENOrdering Facility: [facility] Address: [address] [place] [address] Performed By: #### 5 7021-8 ####[facility]ORATORYCLIA [id number] [address] [place] Erythrocyte distribution width (RBC) [Ratio] 14.6 % Normal 11.5-15.0 [facility] Comment on above: Order Comment: Speci men Type: BLOOD SPECIMENOrdering Facility: [facility] Address: [address] [place] [address] Performed By: #### 5 7021-8 ####[facility]ORATORYCLIA [id number] [address] [place] Hematocrit (Bld) [Volume fraction] 26.4 % Low 39.0-51.0 [facility] Comment on above: Order Comment: Speci men Type: BLOOD SPECIMENOrdering Facility: [facility] Address: [address] [place] [address] Performed By: #### 5 7021-8 ####[facility]ORATORYCLIA [id number] [address] [place] Hemoglobin (Bld) [Mass/Vol] 7.8 g/dL Low 13.0-17.0 [facility] Comment on above: Order Comment: Speci men Type: BLOOD SPECIMENOrdering Facility: [facility] Address: [address] [place] [address] Performed By: #### 5 7021-8 ####[facility]ORATORYCLIA [id number] [address] [place] Immature granulocytes (Bld) [#/Vol] 0.19 10*3/uL High <0.10 [facility] Comment on above: Order Comment: Speci men Type: BLOOD SPECIMENOrdering Facility: [facility] Address: [address] [place] [address] Performed By: #### 5 7021-8 ####[facility]ORATORYCLIA [id number] [address] Immature granulocytes/100 WBC (Bld) 1.6 % Normal [facility] Comment on above: Order Comment: Speci men Type: BLOOD SPECIMENOrdering Facility: [facility] Address: [address] [place] [address] Performed By: #### 5 7021-8 ####[facility]ORATORYCLIA [id number] [address] [place] Lymphocytes (Bld) [#/Vol] 2.22 10*3/uL Normal 1.00-4.00 [facility] Comment on above: Order Comment: Speci men Type: BLOOD SPECIMENOrdering Facility: [facility] Address: [address] [place] [address] Performed By: #### 5 7021-8 ####[facility]ORATORYCLIA [id number] [address] Lymphocytes/100 WBC (Bld) 18.3 % Normal [facility] Comment on above: Order Comment: Speci men Type: BLOOD SPECIMENOrdering Facility: [facility] Address: [address] [place] [address] Performed By: #### 5 7021-8 ####[facility] LABORATORYCLIA [id number] [address] [place] MCH (RBC) [Entitic mass] 25.3 pg Low 26.0-34.0 [facility] Comment on above: Order Comment: Speci men Type: BLOOD SPECIMENOrdering Facility: [facility] Address: [address] [place] [address] Performed By: #### 5 7021-8 ####[facility]ORATORYCLIA [id number] [address] [place] MCHC (RBC) [Mass/Vol] 29.5 g/dL Low 30.5-36.0 [facility] Comment on above: Order Comment: Speci men Type: BLOOD SPECIMENOrdering Facility: [facility] Address: [address] [place] [address] Performed By: #### 5 7021-8 ####[facility] LABORATORYCLIA [id number] [address] [place] MCV (RBC) [Entitic vol] 85.7 fL Normal 80.0-100.0 [facility] Comment on above: Order Comment: Speci men Type: BLOOD SPECIMENOrdering Facility: [facility] Address: [address] [place] [address] Performed By: #### 5 7021-8 ####[facility]ORATORYCLIA [id number] [address] [place] Monocytes (Bld) [#/Vol] 1.04 10*3/uL High <0.87 [facility] Comment on above: Order Comment: Speci men Type: BLOOD SPECIMENOrdering Facility: [facility] Address: [address] [place] [address] Performed By: #### 5 7021-8 ####[facility]ORATORYCLIA [id number] [address] Monocytes/100 WBC (Bld) 8.6 % Normal [facility] Comment on above: Order Comment: Speci men Type: BLOOD SPECIMENOrdering Facility: [facility] Address: [address] [place] [address] Performed By: #### 5 7021-8 ####[facility] LABORATORYCLIA [id number] [address] [place] Neutrophils (Bld) [#/Vol] 8.28 10*3/uL High 1.45-7.50 [facility] Comment on above: Order Comment: Speci men Type: BLOOD SPECIMENOrdering Facility: [facility] Address: [address] [place] [address] Performed By: #### 5 7021-8 ####[facility] LABORATORYCLIA [id number] [address] [place] Neutrophils/100 WBC (Bld) 68.0 % Normal [facility] Comment on above: Order Comment: Speci men Type: BLOOD SPECIMENOrdering Facility: [facility] Address: [address] [address] Performed By: #### 5 7021-8 ####[facility]ORATORYCLIA [id number] [address] [place] Nucleated RBC (Bld) [#/Vol] 10*3/uL Normal <0.01 [facility] Comment on above: Order Comment: Speci men Type: BLOOD SPECIMENOrdering Facility: [facility] Address: [address] [place] [address] Performed By: #### 5 7021-8 ####[facility] LABORATORYCLIA [id number] [address] Nucleated RBC/100 WBC (Bld) [Ratio] 0.0 /100 WBC Normal [facility] Comment on above: Order Comment: Speci men Type: BLOOD SPECIMENOrdering Facility: [facility] Address: [address] [address] Performed By: #### 5 7021-8 ####[facility]ORATORYCLIA [id number] [address] Platelet mean volume (Bld) [Entitic vol] 9.4 fL Normal 9.0-12.7 [facility] Comment on above: Order Comment: Speci men Type: BLOOD SPECIMENOrdering Facility: [facility] Address: [address] [address] Performed By: #### 5 7021-8 ####[facility]ORATORYCLIA [id number] [address] [place] Platelets (Bld) [#/Vol] 309 10*3/uL Normal 150-400 [facility] Comment on above: Order Comment: Speci men Type: BLOOD SPECIMENOrdering Facility: [facility] Address: [address] [address] Performed By: #### 5 7021-8 ####[facility] LABORATORYCLIA [id number] [place] [address] [place] RBC (Bld) [#/Vol] 3.08 10*6/uL Low 4.20-6.00 [facility] Comment on above: Order Comment: Speci men Type: BLOOD SPECIMENOrdering Facility: [facility] Address: [address] [place] [address] Performed By: #### 5 7021-8 ####[facility]ORATORYCLIA [id number] [address] STATES OF [facility] WBC (Bld) [#/Vol] 12.15 10*3/uL High 3.70-11.00 [facility] Comment on above: Order Comment: Speci men Type: BLOOD SPECIMENOrdering Facility: [facility] Address: [address] [place] [address] Performed By: #### 5 7021-8 ####[facility]ORATORYCLIA [id number] [address] CONSULT PROGon 11-25-2022 CONSULT PROG Normal [facility] Comprehensive metabolic 2000 panelon 11-25-2022 Albumin [Mass/Vol] 2.8 g/dL Low 3.9-4.9 [facility] Comment on above: Order Comment: Speci men Type: BLOOD SPECIMENOrdering Facility: [facility] Address: [address] [place] [address] Performed By: #### 2 4323-8, 2132-01 ####[facility] LABORATORYCLIA [id number] [address] STATES OF [facility] ALP [Catalytic activity/Vol] 79 U/L Normal 38-113 [facility] Comment on above: Order Comment: Speci men Type: BLOOD SPECIMENOrdering Facility: [facility] Address: [address] [place] [address] Performed By: #### 2 4323-8, 2132-01 ####[facility]ORATORYCLIA [id number] [address] ALT With P-5'-P [Catalytic activity/Vol] 26 U/L Normal 10-54 [facility] Comment on above: Order Comment: Speci men Type: BLOOD SPECIMENOrdering Facility: [facility] Address: [address] [place] [address] Performed By: #### 2 43207-21, 2132-01 ####[facility]ORATORYCLIA [id number] [address] [place] Anion gap [Moles/Vol] 10 mmol/L Normal 9-18 [facility] Comment on above: Order Comment: Speci men Type: BLOOD SPECIMENOrdering Facility: [facility] Address: [address] [place] [address] Performed By: #### 2 4322-12, 2132-01 ####[facility]ORATORYCLIA [id number] [address] STATES OF [facility] AST With P-5'-P [Catalytic activity/Vol] 20 U/L Normal 14-40 [facility] Comment on above: Order Comment: Speci men Type: BLOOD SPECIMENOrdering Facility: [facility] Address: [address] [place] [address] Performed By: #### 2 4322-12, 2132-01 ####[facility] LABORATORYCLIA [id number] [address] [place] Bilirubin [Mass/Vol] 0.3 mg/dL Normal 0.2-1.3 [facility] Comment on above: Order Comment: Speci men Type: BLOOD SPECIMENOrdering Facility: [facility] Address: [address] [place] [address] Performed By: #### 2 4322-12, 2132-01 ####[facility]ORATORYCLIA [id number] [address] STATES OF [facility] Calcium [Mass/Vol] 8.1 mg/dL Low 8.5-10.2 [facility] Comment on above: Order Comment: Speci men Type: BLOOD SPECIMENOrdering Facility: [facility] Address: [address] [address] Performed By: #### 2 4328, 2132-01 ####[facility] LABORATORYCLIA [id number] [address] OF [facility] Chloride [Moles/Vol] 100 mmol/L Normal 97-105 [facility] Comment on above: Order Comment: Speci men Type: BLOOD SPECIMENOrdering Facility: [facility] Address: [address] [address] Performed By: #### 2 43207-21, 2132-01 ####[facility] LABORATORYCLIA [id number] [address] OF [facility] CO2 [Moles/Vol] 25 mmol/L Normal 22-30 [facility] Comment on above: Order Comment: Speci men Type: BLOOD SPECIMENOrdering Facility: [facility] Address: [address] [place] [address] Performed By: #### 2 43207-21, 2132-01 ####[facility] LABORATORYCLIA [id number] [address] OF [facility] Creatinine [Mass/Vol] 0.72 mg/dL Low 0.73-1.22 [facility] Comment on above: Order Comment: Speci men Type: BLOOD SPECIMENOrdering Facility: [facility] Address: [address] [place] [address] Performed By: #### 2 4328, 2132-01 ####[facility] LABORATORYCLIA [id number] [address] ESTIMATED GLOMERULAR FILTRATION RATE 108 mL/min/1.73m??? Normal >=60 [facility] Comment on above: Order Comment: Speci men Type: BLOOD SPECIMENOrdering Facility: [facility] Address: [address] [place] [address] Result Comment: Lola mated Glomerular Filtration Rate (eGFR) is calculated using the 2020 CKD-EPI creatinine equation. This equation utilizes serum creatinine, sex, and age as parameters. The creatinine assay has traceable calibration to isotope dilution-mass spectrometry. Refer to KDIGO guidelines for clinical interpretation. In patients with unstable renal function, e.g. those with acute kidney injury, the eGFR may not accurately reflect actual GFR. Performed By: #### 2 4322-12, 2132-01 ####[facility] LABORATORYCLIA [id number] [place] [address] [place] Glucose [Mass/Vol] 201 mg/dL High 74-99 [facility] Comment on above: Order Comment: Doroteo zvaala Type: BLOOD SPECIMENOrdering Facility: [facility] Address: [address] [place] [address] Result Comment: The [place] Diabetes Association (ADA) provides guidance for cutoff values for fasting glucose and random glucose. The ADA defines fasting as no caloric intake for at least 8 hours. Fasting plasma glucose results between 100 to 125 mg/dL indicate increased risk for diabetes (prediabetes).Fasting plasma glucose results greater than or equal to 126 mg/dL meet the criteria for diagnosis of diabetes. In the absence of unequivocal hyperglycemia, results should be confirmed by repeat testing. In a patient with classic symptoms of hyperglycemia or hyperglycemic crisis, random plasma glucose results greater than or equal to 200 mg/dL meet the criteria for diagnosis of diabetes.Reference: Standards of Medical Care in Diabetes 2016, [place] [employer]. Diabetes Care. 2016.39(Suppl 1). Performed By: #### 2 4322-12, 2132-01 ####[facility] LABORATORYCLIA [id number] [place] [address] [place] Potassium [Moles/Vol] 4.2 mmol/L Normal 3.7-5.1 [facility] Comment on above: Order Comment: Doroteo zavala Type: BLOOD SPECIMENOrdering Facility: [facility] Address: [address] [id number] Performed By: #### 2 43207-21, 2132-01 ####[facility] LABORATORYCLIA [id number] [place] [address] [place] Sodium [Moles/Vol] 135 mmol/L Low 136-144 [facility] Comment on above: Order Comment: Doroteo zavala Type: BLOOD SPECIMENOrdering Facility: [facility] Address: [address] Performed By: #### 2 4323-8, 9 ####[facility] LABORATORYCLIA [id number] [place], [place] [id number] [place] [address] STATES [facility] Urea nitrogen [Mass/Vol] 10 mg/dL Normal 9-24 [facility] Comment on above: Order Comment: Speci men Type: BLOOD SPECIMENOrdering Facility: [facility] Address: [address] [place] [address] Performed By: #### 2 4323-8, 2132-01 ####[facility] LABORATORYCLIA [id number] [place] [address] [place] NUTRITIONon 11-25-2022 NUTRITION Normal [facility] PROTEIN ELECTROPHORESIS SERU M (P)on 11-25-2022 Albumin [Mass/Vol] 2.04 g/dL Low 3.43-5.41 [facility] Comment on above: Order Comment: Speci men Type: BLOOD SPECIMENOrdering Facility: [facility] Address: [address] [place] [address] Performed By: #### L [id number] ####[facility] LABCLIA [id number] [address] [place] Alpha 1 globulin Elph [Mass/Vol] 0.63 g/dL High 0.18-0.43 [facility] Comment on above: Order Comment: Speci men Type: BLOOD SPECIMENOrdering Facility: [facility] Address: [address] [place], [place] [id number] Performed By: #### L [id number] ####[facility] LABCLIA [id number] [place] [address] [place] Alpha 2 globulin Elph [Mass/Vol] 1.20 g/dL High 0.42-0.98 [facility] Comment on above: Order Comment: Speci men Type: BLOOD SPECIMENOrdering Facility: [facility] Address: [address] [place] [address] Performed By: #### L [id number] ####[facility] LABCLIA [id number] [address] [place] Beta globulin Elph [Mass/Vol] 0.72 g/dL Normal 0.61-1.17 [facility] Comment on above: Order Comment: Speci men Type: BLOOD SPECIMENOrdering Facility: [facility] Address: [address] [place] [address] Performed By: #### L [id number] ####[facility] LABIA [id number] [address] [place] Gamma globulin Elph [Mass/Vol] 1.10 g/dL Normal 0.53-1.51 [facility] Comment on above: Order Comment: Speci men Type: BLOOD SPECIMENOrdering Facility: [facility] Address: [address] [place] [address] Performed By: #### L [id number] ####[facility] LABIA [id number] [address] M-PROTEIN LOCATION Gamma Fraction 1 Normal [facility] Comment on above: Order Comment: Speci men Type: BLOOD SPECIMENOrdering Facility: [facility] Address: [address] [place] [address] Performed By: #### L [id number] ####[facility]ENTERIA [id number] [address] [place] Protein Fractions [Interp] An M protein is identified on protein electrophoresis. Abnormal No definitive M protein is identified on protein electrophor esis. [facility] Comment on above: Order Comment: Speci men Type: BLOOD SPECIMENOrdering Facility: [facility] Address: [address] [place] [address] Performed By: #### L [id number] ####[facility] LABIA [id number] [address] [place] Protein.monoclonal Elph [Mass/Vol] 0.35 g/dL High <=0.00 [facility] Comment on above: Order Comment: Speci men Type: BLOOD SPECIMENOrdering Facility: [facility] Address: [address] [address] Performed By: #### L [id number] ####[facility] LABCLIA [id number] [address] SPE STAFF REVIEW Reviewed by Huma Blake M.D. [facility] Comment on above: Order Comment: Speci men Type: BLOOD SPECIMENOrdering Facility: [facility] Address: [address] Performed By: #### L [id number] ####[facility] LABCLIA [id number] [address] Prot SerPl-mCncon 11-25-2022 Protein [Mass/Vol] 5.7 g/dL Low 6.3-8.0 [facility] Comment on above: Order Comment: Speci men Type: BLOOD SPECIMENOrdering Facility: [facility] Address: [address] Performed By: #### 2 885-2 ####[facility] LABCLIA [id number] [address] [place] Performed By: #### 2 4323-8, 2132-01 ####[facility] LABORATORYCLIA [id number] [place], [place] [id number] [place] [address] [place] THERAPY NTon 11-25-2022 THERAPY NT Normal [facility] Vit B12 SerPl-mCncon 023 Cobalamin (Vitamin B12) [Mass/Vol] 1472 pg/mL High 232-1245 [facility] Comment on above: Order Comment: Speci men Type: BLOOD SPECIMENOrdering Facility: [facility] Address: [address] Performed By: #### 2 4323-8, 2132-01 ####[facility]ORATORYCLIA [id number] [place] [address] [place] XR CHEST 1V FRONTALon 2022 XR CHEST 1V FRONTAL Normal [facility] Bacteria Bld Culton 11-25-19 23 Bacteria identified Cx Nom (Bld) CULTURE, BLOOD: No growth 5 days Normal [facility] Comment on above: Performed By: #### 6 00-7 ####[facility]ORATORYCLIA [id number] [address] [place] CBC W Auto Differential pane l (Bld)on 11-24-2022 Basophils (Bld) [#/Vol] 0.05 10*3/uL Normal <0.11 [facility] Comment on above: Order Comment: Speci men Type: BLOOD SPECIMENOrdering Facility: [facility] Address: [address] [place] [address] Performed By: #### 5 7021-8 ####[facility]ORATORYCLIA [id number] [address] [place] Basophils/100 WBC (Bld) 0.4 % Normal [facility] Comment on above: Order Comment: Speci men Type: BLOOD SPECIMENOrdering Facility: [facility] Address: [address] [place] [address] Performed By: #### 5 7021-8 ####[facility]ORATORYCLIA [id number] [address] STATES [facility] Differential cell count method Nom (Bld) Auto Normal [facility] Comment on above: Order Comment: Speci men Type: BLOOD SPECIMENOrdering Facility: [facility] Address: [address] [place] [address] Performed By: #### 5 7021-8 ####[facility]ORATORYCLIA [id number] [address] [place] Eosinophils (Bld) [#/Vol] 0.30 10*3/uL Normal <0.46 [facility] Comment on above: Order Comment: Speci men Type: BLOOD SPECIMENOrdering Facility: [facility] Address: [address] [address] Performed By: #### 5 7021-8 ####[facility]ORATORYCLIA [id number] [address] Eosinophils/100 WBC (Bld) 2.4 % Normal [facility] Comment on above: Order Comment: Speci men Type: BLOOD SPECIMENOrdering Facility: [facility] Address: [address] [place] [address] Performed By: #### 5 7021-8 ####[facility]ORATORYCLIA [id number] [address] Erythrocyte distribution width (RBC) [Ratio] 14.3 % Normal 11.5-15.0 [facility] Comment on above: Order Comment: Speci men Type: BLOOD SPECIMENOrdering Facility: [facility] Address: [address] [place] [address] Performed By: #### 5 7021-8 ####[facility]ORATORYCLIA [id number] [address] Hematocrit (Bld) [Volume fraction] 27.8 % Low 39.0-51.0 [facility] Comment on above: Order Comment: Speci men Type: BLOOD SPECIMENOrdering Facility: [facility] Address: [address] [place] [address] Performed By: #### 5 7021-8 ####[facility]ORATORYCLIA [id number] [address] [place] Hemoglobin (Bld) [Mass/Vol] 8.3 g/dL Low 13.0-17.0 [facility] Comment on above: Order Comment: Speci men Type: BLOOD SPECIMENOrdering Facility: [facility] Address: [address] [place] [address] Performed By: #### 5 7021-8 ####[facility]ORATORYCLIA [id number] [address] [place] Immature granulocytes (Bld) [#/Vol] 0.17 10*3/uL High <0.10 [facility] Comment on above: Order Comment: Speci men Type: BLOOD SPECIMENOrdering Facility: [facility] Address: [address] [place] [address] Performed By: #### 5 7021-8 ####[facility]ORATORYCLIA [id number] [address] Immature granulocytes/100 WBC (Bld) 1.3 % Normal [facility] Comment on above: Order Comment: Speci men Type: BLOOD SPECIMENOrdering Facility: [facility] Address: [address] [place] [address] Performed By: #### 5 7021-8 ####[facility]ORATORYCLIA [id number] [address] Lymphocytes (Bld) [#/Vol] 2.15 10*3/uL Normal 1.00-4.00 [facility] Comment on above: Order Comment: Speci men Type: BLOOD SPECIMENOrdering Facility: [facility] Address: [address] [place] [address] Performed By: #### 5 7021-8 ####[facility]ORATORYCLIA [id number] [address] Lymphocytes/100 WBC (Bld) 17.0 % Normal [facility] Comment on above: Order Comment: Speci men Type: BLOOD SPECIMENOrdering Facility: [facility] Address: [address] [place] [address] Performed By: #### 5 7021-8 ####[facility]ORATORYCLIA [id number] [address] [place] MCH (RBC) [Entitic mass] 25.5 pg Low 26.0-34.0 [facility] Comment on above: Order Comment: Speci men Type: BLOOD SPECIMENOrdering Facility: [facility] Address: [address] [place] [address] Performed By: #### 5 7021-8 ####[facility]ORATORYCLIA [id number] [address] [place] MCHC (RBC) [Mass/Vol] 29.9 g/dL Low 30.5-36.0 [facility] Comment on above: Order Comment: Speci men Type: BLOOD SPECIMENOrdering Facility: [facility] Address: [address] [place] [address] Performed By: #### 5 7021-8 ####[facility] LABORATORYCLIA [id number] [place] [address] [place] MCV (RBC) [Entitic vol] 85.3 fL Normal 80.0-100.0 [facility] Comment on above: Order Comment: Speci men Type: BLOOD SPECIMENOrdering Facility: [facility] Address: [address] [place] [address] Performed By: #### 5 7021-8 ####[facility]ORATORYCLIA [id number] [address] [place] Monocytes (Bld) [#/Vol] 1.13 10*3/uL High <0.87 [facility] Comment on above: Order Comment: Speci men Type: BLOOD SPECIMENOrdering Facility: [facility] Address: [address] [place] [address] Performed By: #### 5 7021-8 ####[facility]ORATORYCLIA [id number] [address] [place] Monocytes/100 WBC (Bld) 8.9 % Normal [facility] Comment on above: Order Comment: Speci men Type: BLOOD SPECIMENOrdering Facility: [facility] Address: [address] [place] [address] Performed By: #### 5 7021-8 ####[facility] LABORATORYCLIA [id number] [address] [place] Neutrophils (Bld) [#/Vol] 8.87 10*3/uL High 1.45-7.50 [facility] Comment on above: Order Comment: Speci men Type: BLOOD SPECIMENOrdering Facility: [facility] Address: [address] [place] [address] Performed By: #### 5 7021-8 ####[facility]ATORYCLIA [id number] [address] Neutrophils/100 WBC (Bld) 70.0 % Normal [facility] Comment on above: Order Comment: Speci men Type: BLOOD SPECIMENOrdering Facility: [facility] Address: [address] [place] [address] Performed By: #### 5 7021-8 ####[facility]ORATORYCLIA [id number] [address] [place] Nucleated RBC (Bld) [#/Vol] 10*3/uL Normal <0.01 [facility] Comment on above: Order Comment: Speci men Type: BLOOD SPECIMENOrdering Facility: [facility] Address: [address] [place] [address] Performed By: #### 5 7021-8 ####[facility] LABORATORYCLIA [id number] [address] Nucleated RBC/100 WBC (Bld) [Ratio] 0.0 /100 WBC Normal [facility] Comment on above: Order Comment: Speci men Type: BLOOD SPECIMENOrdering Facility: [facility] Address: [address] [place] [address] Performed By: #### 5 7021-8 ####[facility] LABORATORYCLIA [id number] [address] [place] Platelet mean volume (Bld) [Entitic vol] 9.5 fL Normal 9.0-12.7 [facility] Comment on above: Order Comment: Speci men Type: BLOOD SPECIMENOrdering Facility: [facility] Address: [address] [place] [address] Performed By: #### 5 7021-8 ####[facility] LABORATORYCLIA [id number] [address] STATES OF [place] Platelets (Bld) [#/Vol] 307 10*3/uL Normal 150-400 [facility] Comment on above: Order Comment: Speci men Type: BLOOD SPECIMENOrdering Facility: [facility] Address: [address] [place] [address] Performed By: #### 5 7021-8 ####[facility] LABORATORYCLIA [id number] [address] RBC (Bld) [#/Vol] 3.26 10*6/uL Low 4.20-6.00 [facility] Comment on above: Order Comment: Speci men Type: BLOOD SPECIMENOrdering Facility: [facility] Address: [address] [place] [address] Performed By: #### 5 7021-8 ####[facility]ORATORYCLIA [id number] [address] WBC (Bld) [#/Vol] 12.67 10*3/uL High 3.70-11.00 [facility] Comment on above: Order Comment: Speci men Type: BLOOD SPECIMENOrdering Facility: [facility] Address: [address] [place] [address] Performed By: #### 5 7021-8 ####[facility]ORATORYCLIA [id number] [address] CONSULTon 11-24-2022 CONSULT Normal [facility] CONSULT PROGon 11-24-2022 CONSULT PROG Normal [facility] CONSULT PROG Normal [facility] CRP SerPl-mCncon 11-24-2022 CRP [Mass/Vol] 17.1 mg/dL High <0.9 [facility] Comment on above: Order Comment: Speci men Type: BLOOD SPECIMENOrdering Facility: [facility] Address: [address] [place] [address] Performed By: #### 2 4323-8, 1987-5, 80916-3, 2276-4, 56273-7 ####[facility]ORATORYCLIA [id number] [address] Comprehensive metabolic 2000 panelon 11-24-2022 Albumin [Mass/Vol] 2.8 g/dL Low 3.9-4.9 [facility] Comment on above: Order Comment: Speci men Type: BLOOD SPECIMENOrdering Facility: [facility] Address: [address] [place] [address] Performed By: #### 2 4323-8, 1987-09, 47052-6, 4, 39423-3 ####[facility] LABORATORYCLIA [id number] [place] [address] [place] ALP [Catalytic activity/Vol] 79 U/L Normal 38-113 [facility] Comment on above: Order Comment: Speci men Type: BLOOD SPECIMENOrdering Facility: [facility] Address: [address] [place] [address] Performed By: #### 2 4323-8, 1987-09, , 2275-08, 62659-8 ####[facility]ORATORYCLIA [id number] [address] STATES OF [facility] ALT With P-5'-P [Catalytic activity/Vol] 29 U/L Normal 10-54 [facility] Comment on above: Order Comment: Speci men Type: BLOOD SPECIMENOrdering Facility: [facility] Address: [address] [place] [address] Performed By: #### 2 4328, 1987-09, , 2275-08, 39697-4 ####[facility]ORATORYCLIA [id number] [place] [id number] [place] [facility] Anion gap [Moles/Vol] 10 mmol/L Normal 9-18 [facility] Comment on above: Order Comment: Speci men Type: BLOOD SPECIMENOrdering Facility: [facility] Address: [address] [place] [address] Performed By: #### 2 432-8, 1987-09, , 2275-08, 00982-5 ####[facility]ORATORYCLIA [id number] [place] [address] [place] AST With P-5'-P [Catalytic activity/Vol] 20 U/L Normal 14-40 [facility] Comment on above: Order Comment: Speci men Type: BLOOD SPECIMENOrdering Facility: [facility] Address: [address] [place] [address] Performed By: #### 2 432-8, 1987-09, , 2275-08, ####[facility] LABORATORYCLIA [id number] [place] [address] [place] Bilirubin [Mass/Vol] 0.3 mg/dL Normal 0.2-1.3 [facility] Comment on above: Order Comment: Speci men Type: BLOOD SPECIMENOrdering Facility: [facility] Address: [address] [place] [address] Performed By: #### 2 432-8, 1987-09, , 2275-08, ####[facility] LABORATORYCLIA [id number] [place] [address] [place] Calcium [Mass/Vol] 8.1 mg/dL Low 8.5-10.2 [facility] Comment on above: Order Comment: Speci men Type: BLOOD SPECIMENOrdering Facility: [facility] Address: [address] [place] [address] Performed By: #### 2 4328, 1987-09, , 2275-08, ####[facility]ORATORYCLIA [id number] [place] [address] [place] Chloride [Moles/Vol] 100 mmol/L Normal 97-105 [facility] Comment on above: Order Comment: Speci men Type: BLOOD SPECIMENOrdering Facility: [facility] Address: [address] [place] [address] Performed By: #### 2 4328, 1987-09, , 2275-08, ####[facility]ORATORYCLIA [id number] [place] [address] [place] CO2 [Moles/Vol] 23 mmol/L Normal 22-30 [facility] Comment on above: Order Comment: Speci men Type: BLOOD SPECIMENOrdering Facility: [facility] Address: [address] [address] Performed By: #### 2 4323-8, 1987-09, , 2275-08, ####[facility]ORATORYCLIA [id number] [place] [address] [place] Creatinine [Mass/Vol] 0.77 mg/dL Normal 0.73-1.22 [facility] Comment on above: Order Comment: Speci men Type: BLOOD SPECIMENOrdering Facility: [facility] Address: [address] [place] [address] Performed By: #### 2 4323-8, 1987-09, , 2275-08, ####[facility]INGTONIA [id number] [address] STATES OF [facility] ESTIMATED GLOMERULAR FILTRATION RATE 106 mL/min/1.73m??? Normal >=60 [facility] Comment on above: Order Comment: Speci men Type: BLOOD SPECIMENOrdering Facility: [facility] Address: [address] [place] [address] Result Comment: Lola mated Glomerular Filtration Rate (eGFR) is calculated using the 2020 CKD-EPI creatinine equation. This equation utilizes serum creatinine, sex, and age as parameters. The creatinine assay has traceable calibration to isotope dilution-mass spectrometry. Refer to KDIGO guidelines for clinical interpretation. In patients with unstable renal function, e.g. those with acute kidney injury, the eGFR may not accurately reflect actual GFR. Performed By: #### 2 4323-8, 1987-09, , 2275-08, ####[facility]ORATORYCLIA [id number] [place] [address] [place] Glucose [Mass/Vol] 215 mg/dL High 74-99 [facility] Comment on above: Order Comment: Speci men Type: BLOOD SPECIMENOrdering Facility: [facility] Address: [address] [place] [address] Result Comment: The [place] Diabetes Association (ADA) provides guidance for cutoff values for fasting glucose and random glucose. The ADA defines fasting as no caloric intake for at least 8 hours. Fasting plasma glucose results between 100 to 125 mg/dL indicate increased risk for diabetes (prediabetes).Fasting plasma glucose results greater than or equal to 126 mg/dL meet the criteria for diagnosis of diabetes. In the absence of unequivocal hyperglycemia, results should be confirmed by repeat testing. In a patient with classic symptoms of hyperglycemia or hyperglycemic crisis, random plasma glucose results greater than or equal to 200 mg/dL meet the criteria for diagnosis of diabetes.Reference: Standards of Medical Care in Diabetes 2016, [place] [employer] Association. Diabetes Care. 2016.39(Suppl 1). Performed By: #### 2 4323-8, 1987-09, , 2275-08, ####[facility]PITALCLIA [id number] [place] [address] [place] Potassium [Moles/Vol] 4.3 mmol/L Normal 3.7-5.1 [facility] Comment on above: Order Comment: Speci men Type: BLOOD SPECIMENOrdering Facility: [facility] Address: [address] [place] [address] Performed By: #### 2 4328, 1987-09, , 2275-08, ####[facility]INGTONIA [id number] [place] [address] [place] Protein [Mass/Vol] 6.6 g/dL Normal 6.3-8.0 [facility] Comment on above: Order Comment: Speci men Type: BLOOD SPECIMENOrdering Facility: [facility] Address: [address] [place], [place] [id number] Performed By: #### 2 4328, 1987-09, , 2275-08, ####[facility]INGTONIA [id number] [place] [address] [place] Sodium [Moles/Vol] 133 mmol/L Low 136-144 [facility] Comment on above: Order Comment: Speci men Type: BLOOD SPECIMENOrdering Facility: [facility] Address: [place] [place] [id number] Performed By: #### 2 4323-8, 1987-09, , 2275-08, 86992-5 ####[facility]ORATORYCLIA [id number] [place] [address] [place] [facility] Urea nitrogen [Mass/Vol] 14 mg/dL Normal 9-24 [facility] Comment on above: Order Comment: Speci men Type: BLOOD SPECIMENOrdering Facility: [facility] Address: [address] [place], [place] [id number] Performed By: #### 2 432-8, 1987-09, , 2275-08, 07641-4 ####[facility]ORATORYCLIA [id number] [address] STATES [place] Ferritin SerPl-ncon 2022 Ferritin [Mass/Vol] 154.0 ng/mL Normal 30.3-565.7 [facility] Comment on above: Order Comment: Speci men Type: BLOOD SPECIMENOrdering Facility: [facility] Address: [address] [place] [address] Performed By: #### 2 4323-8, 1987-09, , 2275-08, 31345-4 ####[facility]ORATORYCLIA [id number] [place] [address] [place] Iron and Iron binding capaci panelon 11-24-2022 Iron [Mass/Vol] 15 ug/dL Low 41-186 [facility] Comment on above: Order Comment: Speci men Type: BLOOD SPECIMENOrdering Facility: [facility] Address: [address] [place], [place] [id number] Performed By: #### 2 4323-8, 1987-09, , 2275-08, 90602-4 ####[facility]ORATORYCLIA [id number] [address] [place] Iron binding capacity [Mass/Vol] 213 ug/dL Low 232-386 [facility] Comment on above: Order Comment: Speci men Type: BLOOD SPECIMENOrdering Facility: [facility] Address: [place] [address] Performed By: #### 2 432-8, 1987-09, , 2275-08, ####[facility]ORATORYCLIA [id number] [address] Iron saturation [Mass fraction] 7.0 % Low 15.0-57.0 [facility] Comment on above: Order Comment: Speci men Type: BLOOD SPECIMENOrdering Facility: [facility] Address: [place] [address] Performed By: #### 2 432-8, 1987-09, , 2275-08, ####[facility]ORATORYCLIA [id number] [address] OF [facility] PT EDon 11-24-2022 PT ED Normal [facility] Procalcitonin SerPl-mCncon 0 11-24-2022 Procalcitonin [Mass/Vol] 0.25 ng/mL High <0.09 [facility] Comment on above: Order Comment: Speci men Type: BLOOD SPECIMENOrdering Facility: [facility] Address: [address] [place] [address] Result Comment: For a guided interpretation of test results, please visit the Change in Procalcitonin Calculator, [email or web address]. Performed By: #### 2 432-8, 1987-09, , 2275-08, ####[facility]ORATORYCLIA [id number] [address] SEPSIS LACTATEon 11-24-2022 Lactate [Moles/Vol] 1.2 mmol/L Normal 0.0-2.0 [facility] Comment on above: Order Comment: Speci men Type: BLOOD SPECIMENOrdering Facility: [facility] Address: [address] [place] [address] Performed By: #### S LACT ####[facility]ORATORYCLIA [id number] [address] [place] THERAPY NTon 11-24-2022 THERAPY NT Normal [facility] Vancomycin random [Mass/Vol] on 11-24-2022 Vancomycin [Mass/Vol] 11.9 ug/mL Normal 10.0-20.0 [facility] Comment on above: Order Comment: Speci men Type: BLOOD SPECIMENOrdering Facility: [facility] Address: [address] [place] [address] Result Comment: Refe rence ranges and high/low indicator flags are provided as general guidelines only. The treating physician must determine appropriate target levels/dosing based on the specific clinical situation. Performed By: #### 4 091-5 ####[facility]ORATORYCLIA [id number] [address] [place] ALLIED HEALTHon 11-23-2022 ALLIED HEALTH Normal [facility] ALLIED HEALTH Normal [facility] Bacteria Spec Resp Culton Bacteria identified Respiratory culture Nom (Unsp spec) CULTURE, RESPIRATORY: Few Normal respiratory beverly present GRAM STAIN: Rare Mixed oral beverly No Polymorphonuclear Leukocytes Rare Epithelial cells Abnormal [facility] Comment on above: Performed By: #### 3 2355-0 ####[facility]ORATORYCLIA [id number] [address] STATES OF [facility] CBC W Auto Differential pane l (Bld)on 11-23-2022 Basophils (Bld) [#/Vol] 0.07 10*3/uL Normal <0.11 [facility] Comment on above: Order Comment: Speci men Type: BLOOD SPECIMENOrdering Facility: [facility] Address: [place] [id number] Result Comment: Diff erential confirmed by visual scan of peripheral blood smear slide. Performed By: #### 5 7021-8, 76632-4 ####[facility]ORATORYCLIA [id number] [address] Basophils/100 WBC (Bld) 0.5 % Normal [facility] Comment on above: Order Comment: Speci men Type: BLOOD SPECIMENOrdering Facility: [facility] Address: [address] [place] [address] Performed By: #### 5 7021-8, 52831-7 ####[facility]ORATORYCLIA [id number] [address] Differential cell count method Nom (Bld) Auto Normal [facility] Comment on above: Order Comment: Speci men Type: BLOOD SPECIMENOrdering Facility: [facility] Address: [address] [place] [address] Performed By: #### 5 7021-8, 45863-5 ####[facility]ORATORYCLIA [id number] [place] [address] [place] Eosinophils (Bld) [#/Vol] 0.41 10*3/uL Normal <0.46 [facility] Comment on above: Order Comment: Speci men Type: BLOOD SPECIMENOrdering Facility: [facility] Address: [address] [place] [address] Performed By: #### 5 7021-8, 60090-6 ####[facility]ORATORYCLIA [id number] [address] Eosinophils/100 WBC (Bld) 2.7 % Normal [facility] Comment on above: Order Comment: Speci men Type: BLOOD SPECIMENOrdering Facility: [facility] Address: [address] [place] [address] Performed By: #### 5 7021-8, 94543-4 ####[facility]ORATORYCLIA [id number] [address] [place] Erythrocyte distribution width (RBC) [Ratio] 14.6 % Normal 11.5-15.0 [facility] Comment on above: Order Comment: Speci men Type: BLOOD SPECIMENOrdering Facility: [facility] Address: [address] [place] [address] Performed By: #### 5 7021-8, 01347-5 ####[facility]ORATORYCLIA [id number] [address] OF [place] Hematocrit (Bld) [Volume fraction] 28.3 % Low 39.0-51.0 [facility] Comment on above: Order Comment: Speci men Type: BLOOD SPECIMENOrdering Facility: [facility] Address: [address] [place] [address] Performed By: #### 5 7021-8, 30494-7 ####[facility]ORATORYCLIA [id number] [place] [address] [place] Hemoglobin (Bld) [Mass/Vol] 8.4 g/dL Low 13.0-17.0 [facility] Comment on above: Order Comment: Speci men Type: BLOOD SPECIMENOrdering Facility: [facility] Address: [address] [place] [address] Performed By: #### 5 7021-8, 61811-4 ####[facility]ORATORYCLIA [id number] [address] [place] Immature granulocytes (Bld) [#/Vol] 0.33 10*3/uL High <0.10 [facility] Comment on above: Order Comment: Speci men Type: BLOOD SPECIMENOrdering Facility: [facility] Address: [address] [place] [address] Performed By: #### 5 7021-8, 97819-0 ####[facility]ORATORYCLIA [id number] [address] [place] Immature granulocytes/100 WBC (Bld) 2.2 % Normal [facility] Comment on above: Order Comment: Speci men Type: BLOOD SPECIMENOrdering Facility: [facility] Address: [address] [place] [address] Performed By: #### 5 7021-8, 30683-4 ####[facility]ORATORYCLIA [id number] [address] [place] Lymphocytes (Bld) [#/Vol] 2.55 10*3/uL Normal 1.00-4.00 [facility] Comment on above: Order Comment: Speci men Type: BLOOD SPECIMENOrdering Facility: [facility] Address: [address] [place] [address] Performed By: #### 5 7021-8, 04239-6 ####[facility]ORATORYCLIA [id number] [address] Lymphocytes/100 WBC (Bld) 16.9 % Normal [facility] Comment on above: Order Comment: Speci men Type: BLOOD SPECIMENOrdering Facility: [facility] Address: [address] [place] [address] Performed By: #### 5 7021-8, 38278-5 ####[facility]ORATORYCLIA [id number] [address] STATES OF [facility] MCH (RBC) [Entitic mass] 25.7 pg Low 26.0-34.0 [facility] Comment on above: Order Comment: Speci men Type: BLOOD SPECIMENOrdering Facility: [facility] Address: [address] [place] [address] Performed By: #### 5 7021-8, 16665-9 ####[facility]ORATORYCLIA [id number] [address] STATES OF [facility] MCHC (RBC) [Mass/Vol] 29.7 g/dL Low 30.5-36.0 [facility] Comment on above: Order Comment: Speci men Type: BLOOD SPECIMENOrdering Facility: [facility] Address: [address] [place] [address] Performed By: #### 5 7021-8, 48410-7 ####[facility]ORATORYCLIA [id number] [address] STATES OF [facility] MCV (RBC) [Entitic vol] 86.5 fL Normal 80.0-100.0 [facility] Comment on above: Order Comment: Speci men Type: BLOOD SPECIMENOrdering Facility: [facility] Address: [address] [place] [address] Performed By: #### 5 7021-8, 83054-4 ####[facility]ORATORYCLIA [id number] [place] [address] [place] Monocytes (Bld) [#/Vol] 0.99 10*3/uL High <0.87 [facility] Comment on above: Order Comment: Speci men Type: BLOOD SPECIMENOrdering Facility: [facility] Address: [address] [place] [address] Performed By: #### 5 7021-8, 38816-4 ####[facility]ORATORYCLIA [id number] [address] [place] Monocytes/100 WBC (Bld) 6.6 % Normal [facility] Comment on above: Order Comment: Speci men Type: BLOOD SPECIMENOrdering Facility: [facility] Address: [address] [place] [address] Performed By: #### 5 7021-8, 84510-5 ####[facility]ORATORYCLIA [id number] [address] [place] Neutrophils (Bld) [#/Vol] 10.70 10*3/uL High 1.45-7.50 [facility] Comment on above: Order Comment: Speci men Type: BLOOD SPECIMENOrdering Facility: [facility] Address: [address] [place] [address] Performed By: #### 5 7021-8, 10411-1 ####[facility]ATORYCLIA [id number] [address] [place] Neutrophils/100 WBC (Bld) 71.1 % Normal [facility] Comment on above: Order Comment: Speci men Type: BLOOD SPECIMENOrdering Facility: [facility] Address: [address] [place] [address] Performed By: #### 5 7021-8, 79734-1 ####[facility]ORATORYCLIA [id number] [place] [address] [place] Nucleated RBC (Bld) [#/Vol] 10*3/uL Normal <0.01 [facility] Comment on above: Order Comment: Speci men Type: BLOOD SPECIMENOrdering Facility: [facility] Address: [address] [place] [address] Performed By: #### 5 7021-8, 66380-6 ####[facility]ORATORYCLIA [id number] [address] Nucleated RBC/100 WBC (Bld) [Ratio] 0.0 /100 WBC Normal [facility] Comment on above: Order Comment: Speci men Type: BLOOD SPECIMENOrdering Facility: [facility] Address: [address] [place] [address] Performed By: #### 5 7021-8, 46452-1 ####[facility]ORATORYCLIA [id number] [place] [address] [place] Platelet mean volume (Bld) [Entitic vol] 9.3 fL Normal 9.0-12.7 [facility] Comment on above: Order Comment: Speci men Type: BLOOD SPECIMENOrdering Facility: [facility] Address: [address] [place] [address] Performed By: #### 5 7021-8, 57960-5 ####[facility]ORATORYCLIA [id number] [address] [place] Platelets (Bld) [#/Vol] 288 10*3/uL Normal 150-400 [facility] Comment on above: Order Comment: Speci men Type: BLOOD SPECIMENOrdering Facility: [facility] Address: [address] [place] [address] Performed By: #### 5 7021-8, 90977-0 ####[facility]ORATORYCLIA [id number] [place] [address] [place] RBC (Bld) [#/Vol] 3.27 10*6/uL Low 4.20-6.00 [facility] Comment on above: Order Comment: Speci men Type: BLOOD SPECIMENOrdering Facility: [facility] Address: [address] [place] [address] Performed By: #### 5 7021-8, 29188-0 ####[facility]ORATORYCLIA [id number] [address] [place] WBC (Bld) [#/Vol] 15.05 10*3/uL High 3.70-11.00 [facility] Comment on above: Order Comment: Speci men Type: BLOOD SPECIMENOrdering Facility: [facility] Address: [address] [place] [address] Performed By: #### 5 7021-8, 51060-9 ####[facility]ORATORYCLIA [id number] [address] OF [facility] CONSULT PROGon 11-23-2022 CONSULT PROG Normal [facility] Comprehensive metabolic 2000 panelon 11-23-2022 Albumin [Mass/Vol] 2.6 g/dL Low 3.9-4.9 [facility] Comment on above: Order Comment: Speci men Type: BLOOD SPECIMENOrdering Facility: [facility] Address: [address] [place] [address] Performed By: #### 2 4323-8 ####[facility]ORATORYCLIA [id number] [address] ALP [Catalytic activity/Vol] 77 U/L Normal 38-113 [facility] Comment on above: Order Comment: Speci men Type: BLOOD SPECIMENOrdering Facility: [facility] Address: [address] [place] [address] Performed By: #### 2 4323-8 ####[facility]ORATORYCLIA [id number] [address] ALT With P-5'-P [Catalytic activity/Vol] 37 U/L Normal 10-54 [facility] Comment on above: Order Comment: Speci men Type: BLOOD SPECIMENOrdering Facility: [facility] Address: [address] [place] [address] Performed By: #### 2 4323-8 ####[facility]ORATORYCLIA [id number] [address] Anion gap [Moles/Vol] 10 mmol/L Normal 9-18 [facility] Comment on above: Order Comment: Speci men Type: BLOOD SPECIMENOrdering Facility: [facility] Address: [address] [place] [address] Performed By: #### 2 4323-8 ####[facility]ORATORYCLIA [id number] [place] [address] [place] AST With P-5'-P [Catalytic activity/Vol] 29 U/L Normal 14-40 [facility] Comment on above: Order Comment: Speci men Type: BLOOD SPECIMENOrdering Facility: [facility] Address: [address] [place] [address] Performed By: #### 2 4323-8 ####[facility]ORATORYCLIA [id number] [place] [address] [place] Bilirubin [Mass/Vol] 0.4 mg/dL Normal 0.2-1.3 [facility] Comment on above: Order Comment: Speci men Type: BLOOD SPECIMENOrdering Facility: [facility] Address: [address] [place] [address] Performed By: #### 2 4323-8 ####[facility] LABORATORYCLIA [id number] [place] [address] [place] Calcium [Mass/Vol] 7.7 mg/dL Low 8.5-10.2 [facility] Comment on above: Order Comment: Speci men Type: BLOOD SPECIMENOrdering Facility: [facility] Address: [address] [place] [address] Performed By: #### 2 4323-8 ####[facility]ORATORYCLIA [id number] [place] [address] [place] Chloride [Moles/Vol] 99 mmol/L Normal 97-105 [facility] Comment on above: Order Comment: Speci men Type: BLOOD SPECIMENOrdering Facility: [facility] Address: [address] [place] [address] Performed By: #### 2 4323-8 ####[facility]ATORYCLIA [id number] [address] OF [facility] CO2 [Moles/Vol] 24 mmol/L Normal 22-30 [facility] Comment on above: Order Comment: Speci men Type: BLOOD SPECIMENOrdering Facility: [facility] Address: [address] [address] Performed By: #### 2 4323-8 ####[facility] LABORATORYCLIA [id number] [address] [place] Creatinine [Mass/Vol] 0.86 mg/dL Normal 0.73-1.22 [facility] Comment on above: Order Comment: Speci men Type: BLOOD SPECIMENOrdering Facility: [facility] Address: [address] [place] [address] Performed By: #### 2 4323-8 ####[facility]ORATORYCLIA [id number] [address] ESTIMATED GLOMERULAR FILTRATION RATE 102 mL/min/1.73m??? Normal >=60 [facility] Comment on above: Order Comment: Speci men Type: BLOOD SPECIMENOrdering Facility: [facility] Address: [address] [place] [address] Result Comment: Lola mated Glomerular Filtration Rate (eGFR) is calculated using the 2020 CKD-EPI creatinine equation. This equation utilizes serum creatinine, sex, and age as parameters. The creatinine assay has traceable calibration to isotope dilution-mass spectrometry. Refer to KDIGO guidelines for clinical interpretation. In patients with unstable renal function, e.g. those with acute kidney injury, the eGFR may not accurately reflect actual GFR. Performed By: #### 2 4323-8 ####[facility]ORATORYCLIA [id number] [address] [place] Glucose [Mass/Vol] 196 mg/dL High 74-99 [facility] Comment on above: Order Comment: Speci lucas Type: BLOOD SPECIMENOrdering Facility: [facility] Address: [address] [place] [address] Result Comment: The [place] Diabetes Association (ADA) provides guidance for cutoff values for fasting glucose and random glucose. The ADA defines fasting as no caloric intake for at least 8 hours. Fasting plasma glucose results between 100 to 125 mg/dL indicate increased risk for diabetes (prediabetes).Fasting plasma glucose results greater than or equal to 126 mg/dL meet the criteria for diagnosis of diabetes. In the absence of unequivocal hyperglycemia, results should be confirmed by repeat testing. In a patient with classic symptoms of hyperglycemia or hyperglycemic crisis, random plasma glucose results greater than or equal to 200 mg/dL meet the criteria for diagnosis of diabetes.Reference: Standards of Medical Care in Diabetes 2016, [place] [employer]. Diabetes Care. 2016.39(Suppl 1). Performed By: #### 2 4323-8 ####[facility]ORATORYCLIA [id number] [place] [address] [place] Potassium [Moles/Vol] 4.0 mmol/L Normal 3.7-5.1 [facility] Comment on above: Order Comment: Speci men Type: BLOOD SPECIMENOrdering Facility: [facility] Address: [address] [place] [address] Performed By: #### 2 4323-8 ####[facility]ORATORYCLIA [id number] [place] [address] [place] Protein [Mass/Vol] 6.4 g/dL Normal 6.3-8.0 [facility] Comment on above: Order Comment: Speci men Type: BLOOD SPECIMENOrdering Facility: [facility] Address: [address] [place] [address] Performed By: #### 2 4323-8 ####[facility]ORATORYCLIA [id number] [place] [address] [place] Sodium [Moles/Vol] 133 mmol/L Low 136-144 [facility] Comment on above: Order Comment: Speci men Type: BLOOD SPECIMENOrdering Facility: [facility] Address: [address] [address] Performed By: #### 2 4323-8 ####[facility]ORATORYCLIA [id number] [place] [address] [place] Urea nitrogen [Mass/Vol] 13 mg/dL Normal 9-24 [facility] Comment on above: Order Comment: Speci men Type: BLOOD SPECIMENOrdering Facility: [facility] Address: [address] [address] Performed By: #### 2 4323-8 ####[facility]ORATORYCLIA [id number] [address] [place] MRI LUMBAR SPINE WO/W IVCONo n 11-23-2022 MRI LUMBAR SPINE WO/W IVCON Normal [facility] MRI THORACIC SPINE WO/W IVCO Non 11-23-2022 MRI THORACIC SPINE WO/W IVCON Normal [facility] Retics #on 11-23-2022 Reticulocytes (Bld) [#/Vol] 0.20650 10*3/uL Normal 0.018-0.100 [facility] Comment on above: Order Comment: Speci men Type: BLOOD SPECIMENOrdering Facility: [facility] Address: [address] [place] [address] Performed By: #### 5 7021-8, 50966-6 ####[facility]ORATORYCLIA [id number] [address] Reticulocytes (Bld) [#/Vol]o n 11-23-2022 Reticulocytes/100 RBC (Bld) 2.2 % High 0.4-2.0 [facility] Comment on above: Order Comment: Speci men Type: BLOOD SPECIMENOrdering Facility: [facility] Address: [address] [place] [address] Performed By: #### 5 7021-8, 42229-1 ####[facility]ORATORYCLIA [id number] [address] [place] XR CHEST 1V FRONTALon 2022 XR CHEST 1V FRONTAL Normal [facility] Bacteria Ur Culton 3 Bacteria identified Cx Nom (U) CULTURE, URINE: No growth (<1,000 CFU/ml) Normal [facility] Comment on above: Performed By: #### 6 30-4 ####[facility]ATORYCLIA [id number] [address] [place] CASE MANAGEMon 11-22-2022 CASE MANAGEM Normal [facility] CBC W Auto Differential pane l (Bld)on 11-22-2022 Basophils (Bld) [#/Vol] 0.08 10*3/uL Normal <0.11 [facility] Comment on above: Order Comment: Speci men Type: BLOOD SPECIMENOrdering Facility: [facility] Address: [address] [place] [address] Result Comment: Diff erential confirmed by visual scan of peripheral blood smear slide. Performed By: #### 5 7021-8 ####[facility]ORATORYCLIA [id number] [address] Basophils/100 WBC (Bld) 0.5 % Normal [facility] Comment on above: Order Comment: Speci men Type: BLOOD SPECIMENOrdering Facility: [facility] Address: [address] [place] [address] Performed By: #### 5 7021-8 ####[facility]ORATORYCLIA [id number] [address] Differential cell count method Nom (Bld) Auto Normal [facility] Comment on above: Order Comment: Speci men Type: BLOOD SPECIMENOrdering Facility: [facility] Address: [address] [place] [address] Performed By: #### 5 7021-8 ####[facility]ORATORYCLIA [id number] [place] [address] [place] Eosinophils (Bld) [#/Vol] 0.38 10*3/uL Normal <0.46 [facility] Comment on above: Order Comment: Speci men Type: BLOOD SPECIMENOrdering Facility: [facility] Address: [address] [place] [address] Performed By: #### 5 7021-8 ####[facility]ORATORYCLIA [id number] [address] [place] Eosinophils/100 WBC (Bld) 2.2 % Normal [facility] Comment on above: Order Comment: Speci men Type: BLOOD SPECIMENOrdering Facility: [facility] Address: [address] [place] [address] Performed By: #### 5 7021-8 ####[facility]ORATORYCLIA [id number] [address] Erythrocyte distribution width (RBC) [Ratio] 14.5 % Normal 11.5-15.0 [facility] Comment on above: Order Comment: Speci men Type: BLOOD SPECIMENOrdering Facility: [facility] Address: [address] [place] [address] Performed By: #### 5 7021-8 ####[facility]ORATORYCLIA [id number] [address] [place] Hematocrit (Bld) [Volume fraction] 31.4 % Low 39.0-51.0 [facility] Comment on above: Order Comment: Speci men Type: BLOOD SPECIMENOrdering Facility: [facility] Address: [address] [place] [address] Performed By: #### 5 7021-8 ####[facility]ORATORYCLIA [id number] [address] [place] Hemoglobin (Bld) [Mass/Vol] 9.4 g/dL Low 13.0-17.0 [facility] Comment on above: Order Comment: Speci men Type: BLOOD SPECIMENOrdering Facility: [facility] Address: [address] [place] [address] Performed By: #### 5 7021-8 ####[facility]ORATORYCLIA [id number] [address] [place] Immature granulocytes (Bld) [#/Vol] 0.50 10*3/uL High <0.10 [facility] Comment on above: Order Comment: Speci men Type: BLOOD SPECIMENOrdering Facility: [facility] Address: [address] [place] [address] Performed By: #### 5 7021-8 ####[facility]ORATORYCLIA [id number] [address] [place] Immature granulocytes/100 WBC (Bld) 2.9 % Normal [facility] Comment on above: Order Comment: Speci men Type: BLOOD SPECIMENOrdering Facility: [facility] Address: [address] [place] [address] Performed By: #### 5 7021-8 ####[facility]ORATORYCLIA [id number] [address] OF [facility] Lymphocytes (Bld) [#/Vol] 2.85 10*3/uL Normal 1.00-4.00 [facility] Comment on above: Order Comment: Speci men Type: BLOOD SPECIMENOrdering Facility: [facility] Address: [address] [place] [address] Performed By: #### 5 7021-8 ####[facility]ORATORYCLIA [id number] [address] Lymphocytes/100 WBC (Bld) 16.3 % Normal [facility] Comment on above: Order Comment: Speci men Type: BLOOD SPECIMENOrdering Facility: [facility] Address: [address] [place] [address] Performed By: #### 5 7021-8 ####[facility]ORATORYCLIA [id number] [address] MCH (RBC) [Entitic mass] 26.1 pg Normal 26.0-34.0 [facility] Comment on above: Order Comment: Speci men Type: BLOOD SPECIMENOrdering Facility: [facility] Address: [address] [place] [address] Performed By: #### 5 7021-8 ####[facility]ORATORYCLIA [id number] [address] STATES OF [facility] MCHC (RBC) [Mass/Vol] 29.9 g/dL Low 30.5-36.0 [facility] Comment on above: Order Comment: Speci men Type: BLOOD SPECIMENOrdering Facility: [facility] Address: [address] [place] [address] Performed By: #### 5 7021-8 ####[facility]ORATORYCLIA [id number] [place] [address] [place] MCV (RBC) [Entitic vol] 87.2 fL Normal 80.0-100.0 [facility] Comment on above: Order Comment: Speci men Type: BLOOD SPECIMENOrdering Facility: [facility] Address: [address] [place] [address] Performed By: #### 5 7021-8 ####[facility]ORATORYCLIA [id number] [place] [address] [place] Monocytes (Bld) [#/Vol] 1.22 10*3/uL High <0.87 [facility] Comment on above: Order Comment: Speci men Type: BLOOD SPECIMENOrdering Facility: [facility] Address: [address] [place] [address] Performed By: #### 5 7021-8 ####[facility]ATORYCLIA [id number] [address] [place] Monocytes/100 WBC (Bld) 7.0 % Normal [facility] Comment on above: Order Comment: Speci men Type: BLOOD SPECIMENOrdering Facility: [facility] Address: [address] [place] [address] Performed By: #### 5 7021-8 ####[facility]ORATORYCLIA [id number] [place] [address] [place] Neutrophils (Bld) [#/Vol] 12.41 10*3/uL High 1.45-7.50 [facility] Comment on above: Order Comment: Speci men Type: BLOOD SPECIMENOrdering Facility: [facility] Address: [address] [place] [address] Performed By: #### 5 7021-8 ####[facility]ATORYCLIA [id number] [address] [place] Neutrophils/100 WBC (Bld) 71.1 % Normal [facility] Comment on above: Order Comment: Speci men Type: BLOOD SPECIMENOrdering Facility: [facility] Address: [address] [address] Performed By: #### 5 7021-8 ####[facility]ATORYCLIA [id number] [address] Nucleated RBC (Bld) [#/Vol] 10*3/uL Normal <0.01 [facility] Comment on above: Order Comment: Speci men Type: BLOOD SPECIMENOrdering Facility: [facility] Address: [address] [address] Performed By: #### 5 7021-8 ####[facility]ATORYCLIA [id number] [address] Nucleated RBC/100 WBC (Bld) [Ratio] 0.0 /100 WBC Normal [facility] Comment on above: Order Comment: Speci men Type: BLOOD SPECIMENOrdering Facility: [facility] Address: [address] [address] Performed By: #### 5 7021-8 ####[facility]ATORYCLIA [id number] [address] [place] Platelet mean volume (Bld) [Entitic vol] 9.5 fL Normal 9.0-12.7 [facility] Comment on above: Order Comment: Speci men Type: BLOOD SPECIMENOrdering Facility: [facility] Address: [address] [place] [address] Performed By: #### 5 7021-8 ####[facility]ATORYCLIA [id number] [address] [place] Platelets (Bld) [#/Vol] 329 10*3/uL Normal 150-400 [facility] Comment on above: Order Comment: Speci men Type: BLOOD SPECIMENOrdering Facility: [facility] Address: [address] [place] [address] Performed By: #### 5 7021-8 ####[facility]ATORYCLIA [id number] [place] [address] [place] RBC (Bld) [#/Vol] 3.60 10*6/uL Low 4.20-6.00 [facility] Comment on above: Order Comment: Speci men Type: BLOOD SPECIMENOrdering Facility: [facility] Address: [address] [place] [address] Performed By: #### 5 7021-8 ####[facility]ORATORYCLIA [id number] [place] [address] [place] WBC (Bld) [#/Vol] 17.44 10*3/uL High 3.70-11.00 [facility] Comment on above: Order Comment: Speci men Type: BLOOD SPECIMENOrdering Facility: [facility] Address: [address] [place] [address] Performed By: #### 5 7021-8 ####[facility]ORATORYCLIA [id number] [address] OF [facility] CONSULT PROGon 11-22-2022 CONSULT PROG Normal [facility] CONSULT PROG Normal [facility] Comprehensive metabolic 2000 panelon 11-22-2022 Albumin [Mass/Vol] 2.9 g/dL Low 3.9-4.9 [facility] Comment on above: Order Comment: Speci men Type: BLOOD SPECIMENOrdering Facility: [facility] Address: [address] [place] [address] Performed By: #### 2 4323-8 ####[facility]ORATORYCLIA [id number] [address] [place] ALP [Catalytic activity/Vol] 89 U/L Normal 38-113 [facility] Comment on above: Order Comment: Speci men Type: BLOOD SPECIMENOrdering Facility: [facility] Address: [address] [place] [address] Performed By: #### 2 4323-8 ####[facility]ATORYCLIA [id number] [address] [place] ALT With P-5'-P [Catalytic activity/Vol] 55 U/L High 10-54 [facility] Comment on above: Order Comment: Speci men Type: BLOOD SPECIMENOrdering Facility: [facility] Address: [address] [place] [address] Performed By: #### 2 4323-8 ####[facility]ATORYCLIA [id number] [address] STATES OF [facility] Anion gap [Moles/Vol] 10 mmol/L Normal 9-18 [facility] Comment on above: Order Comment: Speci men Type: BLOOD SPECIMENOrdering Facility: [facility] Address: [address] [place] [address] Performed By: #### 2 4323-8 ####[facility]ATORYCLIA [id number] [address] [place] AST With P-5'-P [Catalytic activity/Vol] 41 U/L High 14-40 [facility] Comment on above: Order Comment: Speci men Type: BLOOD SPECIMENOrdering Facility: [facility] Address: [address] [place] [address] Performed By: #### 2 4323-8 ####[facility]ATORYCLIA [id number] [address] [place] Bilirubin [Mass/Vol] 0.4 mg/dL Normal 0.2-1.3 [facility] Comment on above: Order Comment: Speci men Type: BLOOD SPECIMENOrdering Facility: [facility] Address: [address] [place] [address] Performed By: #### 2 4323-8 ####[facility]ATORYCLIA [id number] [address] STATES OF [facility] Calcium [Mass/Vol] 7.7 mg/dL Low 8.5-10.2 [facility] Comment on above: Order Comment: Speci men Type: BLOOD SPECIMENOrdering Facility: [facility] Address: [address] [place] [address] Performed By: #### 2 4323-8 ####[facility]ATORYCLIA [id number] [address] [place] Chloride [Moles/Vol] 103 mmol/L Normal 97-105 [facility] Comment on above: Order Comment: Speci men Type: BLOOD SPECIMENOrdering Facility: [facility] Address: [address] [place] [address] Performed By: #### 2 4323-8 ####[facility]ATORYCLIA [id number] [address] [place] CO2 [Moles/Vol] 24 mmol/L Normal 22-30 [facility] Comment on above: Order Comment: Speci men Type: BLOOD SPECIMENOrdering Facility: [facility] Address: [address] [place] [address] Performed By: #### 2 4323-8 ####[facility]ITALCLIA [id number] [address] Creatinine [Mass/Vol] 0.89 mg/dL Normal 0.73-1.22 [facility] Comment on above: Order Comment: Speci men Type: BLOOD SPECIMENOrdering Facility: [facility] Address: [address] [place] [address] Performed By: #### 2 4323-8 ####[facility]ORATORYCLIA [id number] [address] ESTIMATED GLOMERULAR FILTRATION RATE 101 mL/min/1.73m??? Normal >=60 [facility] Comment on above: Order Comment: Speci men Type: BLOOD SPECIMENOrdering Facility: [facility] Address: [address] [place] [address] Result Comment: Lola mated Glomerular Filtration Rate (eGFR) is calculated using the 2020 CKD-EPI creatinine equation. This equation utilizes serum creatinine, sex, and age as parameters. The creatinine assay has traceable calibration to isotope dilution-mass spectrometry. Refer to KDIGO guidelines for clinical interpretation. In patients with unstable renal function, e.g. those with acute kidney injury, the eGFR may not accurately reflect actual GFR. Performed By: #### 2 4323-8 ####[facility]ATORYCLIA [id number] [address] Glucose [Mass/Vol] 189 mg/dL High 74-99 [facility] Comment on above: Order Comment: Speci men Type: BLOOD SPECIMENOrdering Facility: [facility] Address: [address] [place] [address] Result Comment: The [place] Diabetes Association (ADA) provides guidance for cutoff values for fasting glucose and random glucose. The ADA defines fasting as no caloric intake for at least 8 hours. Fasting plasma glucose results between 100 to 125 mg/dL indicate increased risk for diabetes (prediabetes).Fasting plasma glucose results greater than or equal to 126 mg/dL meet the criteria for diagnosis of diabetes. In the absence of unequivocal hyperglycemia, results should be confirmed by repeat testing. In a patient with classic symptoms of hyperglycemia or hyperglycemic crisis, random plasma glucose results greater than or equal to 200 mg/dL meet the criteria for diagnosis of diabetes.Reference: Standards of Medical Care in Diabetes 2016, [place] [employer]. Diabetes Care. 2016.39(Suppl 1). Performed By: #### 2 4323-8 ####[facility]ORATORYCLIA [id number] [place] [address] [place] Potassium [Moles/Vol] 3.8 mmol/L Normal 3.7-5.1 [facility] Comment on above: Order Comment: Salinai lucas Type: BLOOD SPECIMENOrdering Facility: [facility] Address: [address] [place] [address] Performed By: #### 2 4323-8 ####[facility]ORATORYCLIA [id number] [place] [address] [place] Protein [Mass/Vol] 6.6 g/dL Normal 6.3-8.0 [facility] Comment on above: Order Comment: Speci men Type: BLOOD SPECIMENOrdering Facility: [facility] Address: [address] [place] [address] Performed By: #### 2 4323-8 ####[facility]ORATORYCLIA [id number] [place] [address] [place] Sodium [Moles/Vol] 137 mmol/L Normal 136-144 [facility] Comment on above: Order Comment: Speci men Type: BLOOD SPECIMENOrdering Facility: [facility] Address: [address] [address] Performed By: #### 2 4323-8 ####[facility]ORATORYCLIA [id number] [address] STATES [facility] Urea nitrogen [Mass/Vol] 13 mg/dL Normal 9-24 [facility] Comment on above: Order Comment: Speci men Type: BLOOD SPECIMENOrdering Facility: [facility] Address: [address] [address] Performed By: #### 2 4323-8 ####[facility]ORATORYCLIA [id number] [place] [address] [place] NURSING PROGon 11-22-2022 NURSING PROG Normal [facility] THERAPY NTon 11-22-2022 THERAPY NT Normal [facility] THERAPY NT Normal [facility] ALLIED HEALTHon 11-21-2022 ALLIED HEALTH Normal [facility] Bacteria Bld Culton 11-22-19 23 Bacteria identified Cx Nom (Bld) CULTURE, BLOOD: No growth 5 days Normal [facility] Comment on above: Performed By: #### 6 00-7 ####[facility]ORATORYCLIA [id number] [address] [place] CBC W Auto Differential pane l (Bld)on 11-21-2022 Basophils (Bld) [#/Vol] 0.07 10*3/uL Normal <0.11 [facility] Comment on above: Order Comment: Speci men Type: BLOOD SPECIMENOrdering Facility: [facility] Address: [address] [address] Result Comment: Diff erential confirmed by visual scan of peripheral blood smear slide. Performed By: #### 5 7021-8 ####[facility]ATORYCLIA [id number] [address] STATES [facility] Basophils/100 WBC (Bld) 0.5 % Normal [facility] Comment on above: Order Comment: Speci men Type: BLOOD SPECIMENOrdering Facility: [facility] Address: [address] [address] Performed By: #### 5 7021-8 ####[facility]ATORYCLIA [id number] [address] Differential cell count method Nom (Bld) Auto Normal [facility] Comment on above: Order Comment: Speci men Type: BLOOD SPECIMENOrdering Facility: [facility] Address: [address] [place] [address] Performed By: #### 5 7021-8 ####[facility]ORATORYCLIA [id number] [address] STATES OF [facility] Eosinophils (Bld) [#/Vol] 0.33 10*3/uL Normal <0.46 [facility] Comment on above: Order Comment: Speci men Type: BLOOD SPECIMENOrdering Facility: [facility] Address: [address] [place] [address] Performed By: #### 5 7021-8 ####[facility] LABORATORYCLIA [id number] [address] Eosinophils/100 WBC (Bld) 2.3 % Normal [facility] Comment on above: Order Comment: Speci men Type: BLOOD SPECIMENOrdering Facility: [facility] Address: [address] [place] [address] Performed By: #### 5 7021-8 ####[facility]ORATORYCLIA [id number] [address] Erythrocyte distribution width (RBC) [Ratio] 14.4 % Normal 11.5-15.0 [facility] Comment on above: Order Comment: Speci men Type: BLOOD SPECIMENOrdering Facility: [facility] Address: [address] [place] [address] Performed By: #### 5 7021-8 ####[facility]ORATORYCLIA [id number] [address] Hematocrit (Bld) [Volume fraction] 30.9 % Low 39.0-51.0 [facility] Comment on above: Order Comment: Speci men Type: BLOOD SPECIMENOrdering Facility: [facility] Address: [address] [place] [address] Performed By: #### 5 7021-8 ####[facility]ORATORYCLIA [id number] [place] [address] [place] Hemoglobin (Bld) [Mass/Vol] 9.3 g/dL Low 13.0-17.0 [facility] Comment on above: Order Comment: Speci men Type: BLOOD SPECIMENOrdering Facility: [facility] Address: [address] [place] [address] Performed By: #### 5 7021-8 ####[facility]ORATORYCLIA [id number] [address] [place] Immature granulocytes (Bld) [#/Vol] 0.36 10*3/uL High <0.10 [facility] Comment on above: Order Comment: Speci men Type: BLOOD SPECIMENOrdering Facility: [facility] Address: [address] [place] [address] Performed By: #### 5 7021-8 ####[facility]ORATORYCLIA [id number] [address] [place] Immature granulocytes/100 WBC (Bld) 2.5 % Normal [facility] Comment on above: Order Comment: Speci men Type: BLOOD SPECIMENOrdering Facility: [facility] Address: [address] [place] [address] Performed By: #### 5 7021-8 ####[facility]ORATORYCLIA [id number] [address] [place] Lymphocytes (Bld) [#/Vol] 2.70 10*3/uL Normal 1.00-4.00 [facility] Comment on above: Order Comment: Speci men Type: BLOOD SPECIMENOrdering Facility: [facility] Address: [address] [place] [address] Performed By: #### 5 7021-8 ####[facility]ORATORYCLIA [id number] [address] [place] Lymphocytes/100 WBC (Bld) 18.6 % Normal [facility] Comment on above: Order Comment: Speci men Type: BLOOD SPECIMENOrdering Facility: [facility] Address: [address] [place] [address] Performed By: #### 5 7021-8 ####[facility]ORATORYCLIA [id number] [address] MCH (RBC) [Entitic mass] 26.2 pg Normal 26.0-34.0 [facility] Comment on above: Order Comment: Speci men Type: BLOOD SPECIMENOrdering Facility: [facility] Address: [address] [place] [address] Performed By: #### 5 7021-8 ####[facility]ORATORYCLIA [id number] [address] MCHC (RBC) [Mass/Vol] 30.1 g/dL Low 30.5-36.0 [facility] Comment on above: Order Comment: Speci men Type: BLOOD SPECIMENOrdering Facility: [facility] Address: [address] [place] [address] Performed By: #### 5 7021-8 ####[facility]ORATORYCLIA [id number] [address] MCV (RBC) [Entitic vol] 87.0 fL Normal 80.0-100.0 [facility] Comment on above: Order Comment: Speci men Type: BLOOD SPECIMENOrdering Facility: [facility] Address: [address] [place] [address] Performed By: #### 5 7021-8 ####[facility]ORATORYCLIA [id number] [address] Monocytes (Bld) [#/Vol] 1.01 10*3/uL High <0.87 [facility] Comment on above: Order Comment: Speci men Type: BLOOD SPECIMENOrdering Facility: [facility] Address: [address] [place] [address] Performed By: #### 5 7021-8 ####[facility]ATORYCLIA [id number] [address] [place] Monocytes/100 WBC (Bld) 6.9 % Normal [facility] Comment on above: Order Comment: Speci men Type: BLOOD SPECIMENOrdering Facility: [facility] Address: [address] [place] [address] Performed By: #### 5 7021-8 ####[facility]ORATORYCLIA [id number] [place] [address] [place] Neutrophils (Bld) [#/Vol] 10.07 10*3/uL High 1.45-7.50 [facility] Comment on above: Order Comment: Speci men Type: BLOOD SPECIMENOrdering Facility: [facility] Address: [address] [place] [address] Performed By: #### 5 7021-8 ####[facility]ORATORYCLIA [id number] [address] [place] Neutrophils/100 WBC (Bld) 69.2 % Normal [facility] Comment on above: Order Comment: Speci men Type: BLOOD SPECIMENOrdering Facility: [facility] Address: [address] [place] [address] Performed By: #### 5 7021-8 ####[facility]ORATORYCLIA [id number] [address] [place] Nucleated RBC (Bld) [#/Vol] 10*3/uL Normal <0.01 [facility] Comment on above: Order Comment: Speci men Type: BLOOD SPECIMENOrdering Facility: [facility] Address: [address] [place] [address] Performed By: #### 5 7021-8 ####[facility]ORATORYCLIA [id number] [address] [place] Nucleated RBC/100 WBC (Bld) [Ratio] 0.0 /100 WBC Normal [facility] Comment on above: Order Comment: Speci men Type: BLOOD SPECIMENOrdering Facility: [facility] Address: [address] [place] [address] Performed By: #### 5 7021-8 ####[facility]ORATORYCLIA [id number] [address] [place] Platelet mean volume (Bld) [Entitic vol] 9.5 fL Normal 9.0-12.7 [facility] Comment on above: Order Comment: Speci men Type: BLOOD SPECIMENOrdering Facility: [facility] Address: [address] [place] [address] Performed By: #### 5 7021-8 ####[facility]ORATORYCLIA [id number] [address] [place] Platelets (Bld) [#/Vol] 320 10*3/uL Normal 150-400 [facility] Comment on above: Order Comment: Speci men Type: BLOOD SPECIMENOrdering Facility: [facility] Address: [address] [place] [address] Performed By: #### 5 7021-8 ####[facility]ORATORYCLIA [id number] [address] [place] RBC (Bld) [#/Vol] 3.55 10*6/uL Low 4.20-6.00 [facility] Comment on above: Order Comment: Speci men Type: BLOOD SPECIMENOrdering Facility: [facility] Address: [address] [place] [address] Performed By: #### 5 7021-8 ####[facility]ORATORYCLIA [id number] [address] [place] WBC (Bld) [#/Vol] 14.54 10*3/uL High 3.70-11.00 [facility] Comment on above: Order Comment: Speci men Type: BLOOD SPECIMENOrdering Facility: [facility] Address: [address] [place] [address] Performed By: #### 5 7021-8 ####[facility]ORATORYCLIA [id number] [address] [place] CONSULT PROGon 11-21-2022 CONSULT PROG Normal [facility] CRP SerPl-mCncon 11-21-2022 CRP [Mass/Vol] 13.3 mg/dL High <0.9 [facility] Comment on above: Order Comment: Speci men Type: BLOOD SPECIMENOrdering Facility: [facility] Address: [address] [place] [address] Performed By: #### 1 988-5, 86733-1 ####[facility]ORATORYCLIA [id number] [address] Procalcitonin SerPl-mCncon 0 11-21-2022 Procalcitonin [Mass/Vol] 0.24 ng/mL High <0.09 [facility] Comment on above: Order Comment: Speci men Type: BLOOD SPECIMENOrdering Facility: [facility] Address: [address] [place] [address] Result Comment: For a guided interpretation of test results, please visit the Change in Procalcitonin Calculator, [email or web address]. Performed By: #### 1 988-5, 32927-6 ####[facility]ORATORYCLIA [id number] [place] [address] [place] US DVT LOWER BILon US DVT LOWER ISHMAEL Normal [facility] Urinalysis complete pnl Uron 11-21-2022 Urinalysis complete panel (U) Abnormal [facility] Comment on above: Order Comment: Speci men Type: URINE SPECIMENOrdering Facility: [facility] Address: [address] [place] [address] Performed By: #### 2 4356-8 ####[facility]ORATORYCLIA [id number] [address] [place] XR CHEST 1V FRONTALon 2022 XR CHEST 1V FRONTAL Normal [facility] Basic metabolic 2000 panelon 11-20-2022 Anion gap [Moles/Vol] 12 mmol/L Normal 9-18 [facility] Comment on above: Order Comment: Speci men Type: BLOOD SPECIMENOrdering Facility: [facility] Address: [address] [address] Performed By: #### 2 4321-2 ####[facility]ORATORYCLIA [id number] [place] [address] [place] Calcium [Mass/Vol] 8.4 mg/dL Low 8.5-10.2 [facility] Comment on above: Order Comment: Speci men Type: BLOOD SPECIMENOrdering Facility: [facility] Address: [address] [place] [address] Performed By: #### 2 4321-2 ####[facility]ORATORYCLIA [id number] [place] [address] [place] Chloride [Moles/Vol] 103 mmol/L Normal 97-105 [facility] Comment on above: Order Comment: Speci men Type: BLOOD SPECIMENOrdering Facility: [facility] Address: [address] [place] [address] Performed By: #### 2 4321-2 ####[facility]ORATORYCLIA [id number] [place] [address] [place] CO2 [Moles/Vol] 24 mmol/L Normal 22-30 [facility] Comment on above: Order Comment: Speci men Type: BLOOD SPECIMENOrdering Facility: [facility] Address: [address] [place] [address] Performed By: #### 2 4321-2 ####[facility]ORATORYCLIA [id number] [place] [address] [place] Creatinine [Mass/Vol] 0.81 mg/dL Normal 0.73-1.22 [facility] Comment on above: Order Comment: Speci men Type: BLOOD SPECIMENOrdering Facility: [facility] Address: [address] [place] [address] Performed By: #### 2 4321-2 ####[facility]ORATORYCLIA [id number] [address] [place] ESTIMATED GLOMERULAR FILTRATION RATE 104 mL/min/1.73m??? Normal >=60 [facility] Comment on above: Order Comment: Doroteo zavala Type: BLOOD SPECIMENOrdering Facility: [facility] Address: [address] [place] [address] Result Comment: Lola mated Glomerular Filtration Rate (eGFR) is calculated using the 2020 CKD-EPI creatinine equation. This equation utilizes serum creatinine, sex, and age as parameters. The creatinine assay has traceable calibration to isotope dilution-mass spectrometry. Refer to KDIGO guidelines for clinical interpretation. In patients with unstable renal function, e.g. those with acute kidney injury, the eGFR may not accurately reflect actual GFR. Performed By: #### 2 4321-2 ####[facility]ORATORYCLIA [id number] [place] [address] [place] Glucose [Mass/Vol] 141 mg/dL High 74-99 [facility] Comment on above: Order Comment: Doroteo zavala Type: BLOOD SPECIMENOrdering Facility: [facility] Address: [address] [place] [address] Result Comment: The [place] [employer] (ADA) provides guidance for cutoff values for fasting glucose and random glucose. The ADA defines fasting as no caloric intake for at least 8 hours. Fasting plasma glucose results between 100 to 125 mg/dL indicate increased risk for diabetes (prediabetes).Fasting plasma glucose results greater than or equal to 126 mg/dL meet the criteria for diagnosis of diabetes. In the absence of unequivocal hyperglycemia, results should be confirmed by repeat testing. In a patient with classic symptoms of hyperglycemia or hyperglycemic crisis, random plasma glucose results greater than or equal to 200 mg/dL meet the criteria for diagnosis of diabetes.Reference: Standards of Medical Care in Diabetes 2016, [place] [employer]. Diabetes Care. 2016.39(Suppl 1). Performed By: #### 2 4321-2 ####[facility]ORATORYCLIA [id number] [place] [address] [place] Potassium [Moles/Vol] 3.9 mmol/L Normal 3.7-5.1 [facility] Comment on above: Order Comment: Doroteo zavala Type: BLOOD SPECIMENOrdering Facility: [facility] Address: [address] [place] [address] Performed By: #### 2 4321-2 ####[facility]ORATORYCLIA [id number] [address] [place] Sodium [Moles/Vol] 139 mmol/L Normal 136-144 [facility] Comment on above: Order Comment: Speci men Type: BLOOD SPECIMENOrdering Facility: [facility] Address: [address] [place] [address] Performed By: #### 2 4321-2 ####[facility]ORATORYCLIA [id number] [address] STATES OF [facility] Urea nitrogen [Mass/Vol] 18 mg/dL Normal 9-24 [facility] Comment on above: Order Comment: Speci men Type: BLOOD SPECIMENOrdering Facility: [facility] Address: [address] [place] [address] Performed By: #### 2 4321-2 ####[facility]ORATORYCLIA [id number] [address] OF [facility] CBC panel Auto (Bld)on 11-20 Erythrocyte distribution width (RBC) [Ratio] 14.5 % Normal 11.5-15.0 [facility] Comment on above: Order Comment: Speci men Type: BLOOD SPECIMENOrdering Facility: [facility] Address: [address] [place] [address] Performed By: #### 5 8410-2 ####[facility]ORATORYCLIA [id number] [address] [place] Hematocrit (Bld) [Volume fraction] 30.6 % Low 39.0-51.0 [facility] Comment on above: Order Comment: Speci men Type: BLOOD SPECIMENOrdering Facility: [facility] Address: [address] [place] [address] Performed By: #### 5 8410-2 ####[facility]ORATORYCLIA [id number] [address] [place] Hemoglobin (Bld) [Mass/Vol] 9.1 g/dL Low 13.0-17.0 [facility] Comment on above: Order Comment: Speci men Type: BLOOD SPECIMENOrdering Facility: [facility] Address: [address] [address] Performed By: #### 5 8410-2 ####[facility]ORATORYCLIA [id number] [address] MCH (RBC) [Entitic mass] 25.7 pg Low 26.0-34.0 [facility] Comment on above: Order Comment: Speci men Type: BLOOD SPECIMENOrdering Facility: [facility] Address: [address] [place] [address] Performed By: #### 5 8410-2 ####[facility]ORATORYCLIA [id number] [address] MCHC (RBC) [Mass/Vol] 29.7 g/dL Low 30.5-36.0 [facility] Comment on above: Order Comment: Speci men Type: BLOOD SPECIMENOrdering Facility: [facility] Address: [address] [place] [address] Performed By: #### 5 8410-2 ####[facility]ORATORYCLIA [id number] [address] MCV (RBC) [Entitic vol] 86.4 fL Normal 80.0-100.0 [facility] Comment on above: Order Comment: Speci men Type: BLOOD SPECIMENOrdering Facility: [facility] Address: [address] [place] [address] Performed By: #### 5 8410-2 ####[facility]ORATORYCLIA [id number] [address] Nucleated RBC (Bld) [#/Vol] 10*3/uL Normal <0.01 [facility] Comment on above: Order Comment: Speci men Type: BLOOD SPECIMENOrdering Facility: [facility] Address: [address] [place] [address] Performed By: #### 5 8410-2 ####[facility]ORATORYCLIA [id number] [address] Platelet mean volume (Bld) [Entitic vol] 9.1 fL Normal 9.0-12.7 [facility] Comment on above: Order Comment: Speci men Type: BLOOD SPECIMENOrdering Facility: [facility] Address: [address] [place] [address] Performed By: #### 5 8410-2 ####[facility]ORATORYCLIA [id number] [address] [place] Platelets (Bld) [#/Vol] 301 10*3/uL Normal 150-400 [facility] Comment on above: Order Comment: Speci men Type: BLOOD SPECIMENOrdering Facility: [facility] Address: [address] [place] [address] Performed By: #### 5 8410-2 ####[facility]ORATORYCLIA [id number] [address] STATES [facility] RBC (Bld) [#/Vol] 3.54 10*6/uL Low 4.20-6.00 [facility] Comment on above: Order Comment: Speci men Type: BLOOD SPECIMENOrdering Facility: [facility] Address: [address] [place] [address] Performed By: #### 5 8410-2 ####[facility]ORATORYCLIA [id number] [address] WBC (Bld) [#/Vol] 11.86 10*3/uL High 3.70-11.00 [facility] Comment on above: Order Comment: Speci men Type: BLOOD SPECIMENOrdering Facility: [facility] Address: [address] [place] [address] Performed By: #### 5 8410-2 ####[facility]ATORYCLIA [id number] [address] CONSULT PROGon 11-20-2022 CONSULT PROG Normal [facility] Basic metabolic 2000 panelon 11-19-2022 Anion gap [Moles/Vol] 10 mmol/L Normal 9-18 [facility] Comment on above: Order Comment: Speci men Type: BLOOD SPECIMENOrdering Facility: [facility] Address: [address] [address] Performed By: #### 2 4321-2, , 2776-05 ####[facility]ORATORYCLIA [id number] [place] [address] [place] Calcium [Mass/Vol] 7.6 mg/dL Low 8.5-10.2 [facility] Comment on above: Order Comment: Speci men Type: BLOOD SPECIMENOrdering Facility: [facility] Address: [address] [address] Performed By: #### 2 4321-2, , 2776-05 ####[facility]ORATORYCLIA [id number] [place] [address] [place] Chloride [Moles/Vol] 103 mmol/L Normal 97-105 [facility] Comment on above: Order Comment: Speci men Type: BLOOD SPECIMENOrdering Facility: [facility] Address: [address] [address] Performed By: #### 2 1-2, , 2776-05 ####[facility]ORATORYCLIA [id number] [place] [address] [place] CO2 [Moles/Vol] 25 mmol/L Normal 22-30 [facility] Comment on above: Order Comment: Speci men Type: BLOOD SPECIMENOrdering Facility: [facility] Address: [address] [address] Performed By: #### 2 4321-2, , 2776-05 ####[facility]ORATORYCLIA [id number] [place] [address] [place] Creatinine [Mass/Vol] 1.08 mg/dL Normal 0.73-1.22 [facility] Comment on above: Order Comment: Speci men Type: BLOOD SPECIMENOrdering Facility: [facility] Address: [address] [address] Performed By: #### 2 432-2, , 2776-05 ####[facility]ITALCLIA [id number] [address] ESTIMATED GLOMERULAR FILTRATION RATE 81 mL/min/1.73m??? Normal >=60 [facility] Comment on above: Order Comment: Doroteo zavala Type: BLOOD SPECIMENOrdering Facility: [facility] Address: [address] [place] [address] Result Comment: Lola mated Glomerular Filtration Rate (eGFR) is calculated using the 2020 CKD-EPI creatinine equation. This equation utilizes serum creatinine, sex, and age as parameters. The creatinine assay has traceable calibration to isotope dilution-mass spectrometry. Refer to KDIGO guidelines for clinical interpretation. In patients with unstable renal function, e.g. those with acute kidney injury, the eGFR may not accurately reflect actual GFR. Performed By: #### 2 4321-2, , 2776-05 ####[facility]LOOMINGTONIA [id number] [address] Glucose [Mass/Vol] 115 mg/dL High 74-99 [facility] Comment on above: Order Comment: Speccaryn zavala Type: BLOOD SPECIMENOrdering Facility: [facility] Address: [address] [place] [address] Result Comment: The [place] Diabetes Association (ADA) provides guidance for cutoff values for fasting glucose and random glucose. The ADA defines fasting as no caloric intake for at least 8 hours. Fasting plasma glucose results between 100 to 125 mg/dL indicate increased risk for diabetes (prediabetes).Fasting plasma glucose results greater than or equal to 126 mg/dL meet the criteria for diagnosis of diabetes. In the absence of unequivocal hyperglycemia, results should be confirmed by repeat testing. In a patient with classic symptoms of hyperglycemia or hyperglycemic crisis, random plasma glucose results greater than or equal to 200 mg/dL meet the criteria for diagnosis of diabetes.Reference: Standards of Medical Care in Diabetes 2016, [place] [employer]. Diabetes Care. 2016.39(Suppl 1). Performed By: #### 2 4321-2, , 2776-05 ####[facility] LABORATORYIA [id number] [place] [address] [place] Potassium [Moles/Vol] 3.8 mmol/L Normal 3.7-5.1 [facility] Comment on above: Order Comment: Speci men Type: BLOOD SPECIMENOrdering Facility: [facility] Address: [address] [address] Performed By: #### 2 4321-2, , 2776- ####[facility]ORATORYCLIA [id number] [address] STATES OF [facility] Sodium [Moles/Vol] 138 mmol/L Normal 136-144 [facility] Comment on above: Order Comment: Speci men Type: BLOOD SPECIMENOrdering Facility: [facility] Address: [address] [place] [address] Performed By: #### 2 4321-2, , 2776-05 ####[facility]ORATORYCLIA [id number] [address] [place] Urea nitrogen [Mass/Vol] 36 mg/dL High 9-24 [facility] Comment on above: Order Comment: Speci men Type: BLOOD SPECIMENOrdering Facility: [facility] Address: [address] [place] [address] Performed By: #### 2 4321-2, , 2776-05 ####[facility]ORATORYCLIA [id number] [address] STATES OF [facility] CBC panel Auto (Bld)on 11-19 Erythrocyte distribution width (RBC) [Ratio] 14.9 % Normal 11.5-15.0 [facility] Comment on above: Order Comment: Speci men Type: BLOOD SPECIMENOrdering Facility: [facility] Address: [address] [place] [address] Performed By: #### 5 8410-2 ####[facility]ORATORYCLIA [id number] [address] [place] Hematocrit (Bld) [Volume fraction] 28.1 % Low 39.0-51.0 [facility] Comment on above: Order Comment: Speci men Type: BLOOD SPECIMENOrdering Facility: [facility] Address: [address] [place] [address] Performed By: #### 5 8410-2 ####[facility]ORATORYCLIA [id number] [address] STATES OF [facility] Hemoglobin (Bld) [Mass/Vol] 8.4 g/dL Low 13.0-17.0 [facility] Comment on above: Order Comment: Speci men Type: BLOOD SPECIMENOrdering Facility: [facility] Address: [address] [place] [address] Performed By: #### 5 8410-2 ####[facility]ORATORYCLIA [id number] [address] [address] STATES OF [facility] MCH (RBC) [Entitic mass] 25.7 pg Low 26.0-34.0 [facility] Comment on above: Order Comment: Speci men Type: BLOOD SPECIMENOrdering Facility: [facility] Address: [address] [place] [address] Performed By: #### 5 8410-2 ####[facility] LABORATORYCLIA [id number] [address] OF [facility] MCHC (RBC) [Mass/Vol] 29.9 g/dL Low 30.5-36.0 [facility] Comment on above: Order Comment: Speci men Type: BLOOD SPECIMENOrdering Facility: [facility] Address: [address] [place] [address] Performed By: #### 5 8410-2 ####[facility]ORATORYCLIA [id number] [address] [place] MCV (RBC) [Entitic vol] 85.9 fL Normal 80.0-100.0 [facility] Comment on above: Order Comment: Speci men Type: BLOOD SPECIMENOrdering Facility: [facility] Address: [address] [place] [address] Performed By: #### 5 8410-2 ####[facility]ORATORYCLIA [id number] [address] [place] Nucleated RBC (Bld) [#/Vol] 10*3/uL Normal <0.01 [facility] Comment on above: Order Comment: Speci men Type: BLOOD SPECIMENOrdering Facility: [facility] Address: [address] [place] [address] Performed By: #### 5 8410-2 ####[facility] LABORATORYCLIA [id number] [place] [address] [place] Platelet mean volume (Bld) [Entitic vol] 9.0 fL Normal 9.0-12.7 [facility] Comment on above: Order Comment: Speci men Type: BLOOD SPECIMENOrdering Facility: [facility] Address: [address] [place] [address] Performed By: #### 5 8410-2 ####[facility]ORATORYCLIA [id number] [address] [place] Platelets (Bld) [#/Vol] 320 10*3/uL Normal 150-400 [facility] Comment on above: Order Comment: Speci men Type: BLOOD SPECIMENOrdering Facility: [facility] Address: [address] [place] [address] Performed By: #### 5 8410-2 ####[facility]ORATORYCLIA [id number] [address] [place] RBC (Bld) [#/Vol] 3.27 10*6/uL Low 4.20-6.00 [facility] Comment on above: Order Comment: Speci men Type: BLOOD SPECIMENOrdering Facility: [facility] Address: [address] [place] [address] Performed By: #### 5 8410-2 ####[facility] LABORATORYCLIA [id number] [address] [place] WBC (Bld) [#/Vol] 11.56 10*3/uL High 3.70-11.00 [facility] Comment on above: Order Comment: Speci men Type: BLOOD SPECIMENOrdering Facility: [facility] Address: [address] [address] Performed By: #### 5 8410-2 ####[facility]ORATORYCLIA [id number] [address] [place] CONSULT PROGon 11-19-2022 CONSULT PROG Normal [facility] CONSULT PROG Normal [facility] CONSULT PROG Normal [facility] Calcium.ionized [Moles/Vol]o n 11-19-2022 Calcium.ionized (BldV) [Mass/Vol] 1.02 mmol/L Low 1.08-1.30 [facility] Comment on above: Order Comment: Speci men Type: BLOOD SPECIMENOrdering Facility: [facility] Address: [address] [place] [address] Performed By: #### 1 995-0 ####[facility]ORATORYCLIA [id number] [address] STATES [facility] Calcium.ionized adjusted to pH 7.4 (Bld) [Moles/Vol] 1.05 mmol/L Low 1.08-1.30 [facility] Comment on above: Order Comment: Speci men Type: BLOOD SPECIMENOrdering Facility: [facility] Address: [address] [place] [address] Performed By: #### 1 995-0 ####[facility] LABORATORYCLIA [id number] [place] [address] [place] Magnesium SerPl-mCncon 11-19 Magnesium [Mass/Vol] 1.8 mg/dL Normal 1.7-2.3 [facility] Comment on above: Order Comment: Speci men Type: BLOOD SPECIMENOrdering Facility: [facility] Address: [address] [place] [address] Performed By: #### 2 4321-2, 82948-8, 2777-1 ####[facility] LABORATORYCLIA [id number] [place] [address] [place] Phosphate SerPl-mCncon 11-19 Phosphate [Mass/Vol] 2.0 mg/dL Low 2.7-4.8 [facility] Comment on above: Order Comment: Speci men Type: BLOOD SPECIMENOrdering Facility: [facility] Address: [address] [place] [address] Performed By: #### 2 4321-2, 05361-8, 2777-1 ####[facility]ORATORYCLIA [id number] [address] OF [facility] THERAPY NTon 11-19-2022 THERAPY NT Normal [facility] THERAPY NT Normal [facility] Vancomycin random [Mass/Vol] on 11-19-2022 Vancomycin [Mass/Vol] 13.3 ug/mL Normal 10.0-20.0 [facility] Comment on above: Order Comment: Speci men Type: BLOOD SPECIMENOrdering Facility: [facility] Address: [address] [place] [address] Result Comment: Refe rence ranges and high/low indicator flags are provided as general guidelines only. The treating physician must determine appropriate target levels/dosing based on the specific clinical situation. Performed By: #### 4 091-5 ####[facility] LABORATORYCLIA [id number] [address] OF [facility] ALLIED HEALTHon 11-18-2022 ALLIED HEALTH Normal [facility] Bacteria Bld Culton 11-19-19 23 Bacteria identified Cx Nom (Bld) CULTURE, BLOOD: No growth 5 days Normal [facility] Comment on above: Performed By: #### 6 00-7 ####[facility]ORATORYCLIA [id number] [address] Bacteria identified Cx Nom (Bld) CULTURE, BLOOD: No growth 5 days Normal [facility] Comment on above: Performed By: #### 6 00-7 ####[facility] LABORATORYCLIA [id number] [address] Basic metabolic 2000 panelon 11-18-2022 Anion gap [Moles/Vol] 11 mmol/L Normal 9-18 [facility] Comment on above: Order Comment: Speci men Type: BLOOD SPECIMENOrdering Facility: [facility] Address: [address] [address] Performed By: #### 2 4321-2, , 2776-05 ####[facility]ORATORYCLIA [id number] [place] [address] [place] Calcium [Mass/Vol] 8.0 mg/dL Low 8.5-10.2 [facility] Comment on above: Order Comment: Speci men Type: BLOOD SPECIMENOrdering Facility: [facility] Address: [address] [place] [address] Performed By: #### 2 1-2, , 2776-05 ####[facility]ORATORYCLIA [id number] [place] [address] [place] Chloride [Moles/Vol] 103 mmol/L Normal 97-105 [facility] Comment on above: Order Comment: Speci men Type: BLOOD SPECIMENOrdering Facility: [facility] Address: [address] [place] [address] Performed By: #### 2 4320-2, , 2776-05 ####[facility] LABORATORYCLIA [id number] [place] [address] [place] CO2 [Moles/Vol] 27 mmol/L Normal 22-30 [facility] Comment on above: Order Comment: Speci men Type: BLOOD SPECIMENOrdering Facility: [facility] Address: [address] [place] [address] Performed By: #### 2 1-2, , 2776-05 ####[facility] LABORATORYCLIA [id number] [place] [address] [place] Creatinine [Mass/Vol] 1.24 mg/dL High 0.73-1.22 [facility] Comment on above: Order Comment: Speci men Type: BLOOD SPECIMENOrdering Facility: [facility] Address: [address] [place] [address] Performed By: #### 2 4321-2, 2776-05 ####[facility] BLOOMINGTONIA [id number] [place] [address] [place] ESTIMATED GLOMERULAR FILTRATION RATE 69 mL/min/1.73m??? Normal >=60 [facility] Comment on above: Order Comment: Doroteo zavala Type: BLOOD SPECIMENOrdering Facility: [facility] Address: [address] [place] [address] Result Comment: Lola mated Glomerular Filtration Rate (eGFR) is calculated using the 2020 CKD-EPI creatinine equation. This equation utilizes serum creatinine, sex, and age as parameters. The creatinine assay has traceable calibration to isotope dilution-mass spectrometry. Refer to KDIGO guidelines for clinical interpretation. In patients with unstable renal function, e.g. those with acute kidney injury, the eGFR may not accurately reflect actual GFR. Performed By: #### 2 4321-2, , 2776-05 ####[facility]OMINGTONIA [id number] [place] [address] [place] Glucose [Mass/Vol] 167 mg/dL High 74-99 [facility] Comment on above: Order Comment: Doroteo lucas Type: BLOOD SPECIMENOrdering Facility: [facility] Address: [address] [place] [address] Result Comment: The [place] Diabetes Association (ADA) provides guidance for cutoff values for fasting glucose and random glucose. The ADA defines fasting as no caloric intake for at least 8 hours. Fasting plasma glucose results between 100 to 125 mg/dL indicate increased risk for diabetes (prediabetes).Fasting plasma glucose results greater than or equal to 126 mg/dL meet the criteria for diagnosis of diabetes. In the absence of unequivocal hyperglycemia, results should be confirmed by repeat testing. In a patient with classic symptoms of hyperglycemia or hyperglycemic crisis, random plasma glucose results greater than or equal to 200 mg/dL meet the criteria for diagnosis of diabetes.Reference: Standards of Medical Care in Diabetes 2016, [place] [employer]. Diabetes Care. 2016.39(Suppl 1). Performed By: #### 2 4321-2, , 2776-05 ####[facility] LABORATORYIA [id number] [place] [id number] [place] Potassium [Moles/Vol] 4.3 mmol/L Normal 3.7-5.1 [facility] Comment on above: Order Comment: Speci men Type: BLOOD SPECIMENOrdering Facility: [facility] Address: [address] [place] [address] Performed By: #### 2 4321-2, , 2776-05 ####[facility] LABORATORYCLIA [id number] [address] [place] Sodium [Moles/Vol] 141 mmol/L Normal 136-144 [facility] Comment on above: Order Comment: Speci men Type: BLOOD SPECIMENOrdering Facility: [facility] Address: [address] [place] [address] Performed By: #### 2 4321-2, , 2776-05 ####[facility] LABORATORYCLIA [id number] [address] STATES OF [facility] Urea nitrogen [Mass/Vol] 59 mg/dL High 9-24 [facility] Comment on above: Order Comment: Speci men Type: BLOOD SPECIMENOrdering Facility: [facility] Address: [address] [place] [address] Performed By: #### 2 4321-2, , 2776-05 ####[facility]ORATORYCLIA [id number] [address] [place] CASE MGT INIT ASSESon 2022 CASE MGT INIT ASSES Normal [facility] CBC panel Auto (Bld)on 11-18 Erythrocyte distribution width (RBC) [Ratio] 14.9 % Normal 11.5-15.0 [facility] Comment on above: Order Comment: Speci men Type: BLOOD SPECIMENOrdering Facility: [facility] Address: [address] [place] [address] Performed By: #### 5 8410-2 ####[facility] LABORATORYCLIA [id number] [address] [place] Hematocrit (Bld) [Volume fraction] 27.1 % Low 39.0-51.0 [facility] Comment on above: Order Comment: Speci men Type: BLOOD SPECIMENOrdering Facility: [facility] Address: [address] [place] [address] Performed By: #### 5 8410-2 ####[facility] LABORATORYCLIA [id number] [address] STATES OF [facility] Hemoglobin (Bld) [Mass/Vol] 8.3 g/dL Low 13.0-17.0 [facility] Comment on above: Order Comment: Speci men Type: BLOOD SPECIMENOrdering Facility: [facility] Address: [address] [place] [address] Performed By: #### 5 8410-2 ####[facility]ORATORYCLIA [id number] [address] [place] MCH (RBC) [Entitic mass] 26.2 pg Normal 26.0-34.0 [facility] Comment on above: Order Comment: Speci men Type: BLOOD SPECIMENOrdering Facility: [facility] Address: [address] [place] [address] Performed By: #### 5 8410-2 ####[facility] LABORATORYCLIA [id number] [address] [place] MCHC (RBC) [Mass/Vol] 30.6 g/dL Normal 30.5-36.0 [facility] Comment on above: Order Comment: Speci men Type: BLOOD SPECIMENOrdering Facility: [facility] Address: [address] [place] [address] Performed By: #### 5 8410-2 ####[facility]ORATORYCLIA [id number] [address] [place] MCV (RBC) [Entitic vol] 85.5 fL Normal 80.0-100.0 [facility] Comment on above: Order Comment: Speci men Type: BLOOD SPECIMENOrdering Facility: [facility] Address: [address] [place] [address] Performed By: #### 5 8410-2 ####[facility]ORATORYCLIA [id number] [place] [address] [place] Nucleated RBC (Bld) [#/Vol] 10*3/uL Normal <0.01 [facility] Comment on above: Order Comment: Speci men Type: BLOOD SPECIMENOrdering Facility: [facility] Address: [address] [place] [address] Performed By: #### 5 8410-2 ####[facility]ORATORYCLIA [id number] [address] [place] Platelet mean volume (Bld) [Entitic vol] 9.8 fL Normal 9.0-12.7 [facility] Comment on above: Order Comment: Speci men Type: BLOOD SPECIMENOrdering Facility: [facility] Address: [address] [place] [address] Performed By: #### 5 8410-2 ####[facility] LABORATORYCLIA [id number] [address] [place] Platelets (Bld) [#/Vol] 305 10*3/uL Normal 150-400 [facility] Comment on above: Order Comment: Speci men Type: BLOOD SPECIMENOrdering Facility: [facility] Address: [address] [place] [address] Performed By: #### 5 8410-2 ####[facility]ORATORYCLIA [id number] [address] [place] RBC (Bld) [#/Vol] 3.17 10*6/uL Low 4.20-6.00 [facility] Comment on above: Order Comment: Speci men Type: BLOOD SPECIMENOrdering Facility: [facility] Address: [address] [place] [address] Performed By: #### 5 8410-2 ####[facility] LABORATORYCLIA [id number] [address] [place] WBC (Bld) [#/Vol] 8.95 10*3/uL Normal 3.70-11.00 [facility] Comment on above: Order Comment: Speci men Type: BLOOD SPECIMENOrdering Facility: [facility] Address: [address] [place] [address] Performed By: #### 5 8410-2 ####[facility] LABORATORYCLIA [id number] [place] [address] [place] CONSULTon 11-18-2022 CONSULT Normal [facility] CONSULT Normal [facility] CONSULT Normal [facility] CONSULT PROGon 11-18-2022 CONSULT PROG Normal [facility] CT ABD/PEL W IVCONon 023 CT ABD/PEL W IVCON [facility] Magnesium SerPl-mCncon 11-18 Magnesium [Mass/Vol] 2.3 mg/dL Normal 1.7-2.3 [facility] Comment on above: Order Comment: Speci men Type: BLOOD SPECIMENOrdering Facility: [facility] Address: [address] [address] Performed By: #### 2 4321-2, , 1 ####[facility] LABORATORYCLIA [id number] [place] [address] [place] Phosphate SerPl-mCncon 11-18 Phosphate [Mass/Vol] 2.8 mg/dL Normal 2.7-4.8 [facility] Comment on above: Order Comment: Speci men Type: BLOOD SPECIMENOrdering Facility: [facility] Address: [address] [address] Performed By: #### 2 4321-2, , 27711-13 ####[facility]ORATORYCLIA [id number] [place] [address] [place] THERAPY NTon 11-18-2022 THERAPY NT Normal [facility] Vancomycin random [Mass/Vol] on 11-18-2022 Vancomycin [Mass/Vol] 11.5 ug/mL Normal 10.0-20.0 [facility] Comment on above: Order Comment: Speci men Type: BLOOD SPECIMENOrdering Facility: [facility] Address: [address] [address] Result Comment: Refe rence ranges and high/low indicator flags are provided as general guidelines only. The treating physician must determine appropriate target levels/dosing based on the specific clinical situation. Performed By: #### 4 091-5 ####[facility] LABORATORYCLIA [id number] [place] [id number] [facility] 25(OH)D3 SerPl-mCncon 2022 25-hydroxyvitamin D3 [Mass/Vol] 24.6 ng/mL Low >=30.0 [facility] Comment on above: Order Comment: Speci men Type: BLOOD SPECIMENOrdering Facility: [facility] Address: [address] [place] [phone] Result Comment: Clas sification of 25 [place] Vitamin D status:Deficiency: <= 20.0 ng/ml.Insufficiency: 21.0-29.0 ng/ml.Sufficiency: >= 30.0 ng/ml. Performed By: #### 1 989-3 ####[facility] LABORATORYCLIA [id number] [place] [id number] [facility] ALLIED HEALTHon 11-17-2022 ALLIED HEALTH Normal [facility] Absolute lymphocyte countOrd ered By: Vanessa Matias on 11-17-2022 Lymphocytes Auto (Unsp spec) [#/Vol] 1.34 10*3/uL 0.83-4.51 [facility] Bacteria identified Cx Nom ( Wound)Ordered By: Florencio Greenfield on 11-17-2022 Wound Culture Pseudomonas aeruginosa [facility] Wound Culture Staphylococcus aureus [facility] Wound Culture Streptococcus agalac tiae (B) [facility] Wound Culture Raoultella planticola [facility] Basophil percentageOrdered B y: Florencio Greenfield on 11-17-2022 Basophil percentage 25-50 SEEN /hpf 0-5 [facility] Basophil percentageOrdered B y: Vanessa Matias on 11-17-2022 Basophil percentage 5.2 mg/dL 2.5-4.9 [facility] WBC (Bld) 0.2 % 0-1 [facility] Bilirubin [Mass/Vol] 0.40 mg/dL 0.20-1.00 [facility] Comment on above: For patients on eltr ombopag therapy, use of [employer] [place] TBIL is not recommended. Chloride [Moles/Vol] 104 mmol/L 98-107 [facility] Eosinophils/100 WBC (Bld) 1.2 % 0-5 [facility] Glucose [Mass/Vol] 107 mg/dL 74-106 [facility] Comment on above: Fasting Glucose resu lt from 100 to 125 mg/dL suggests IMPAIRED HOMEOSTASIS per A.D.A. criteria. Neutrophils (Bld) [#/Vol] 6.0 10*3/uL 2.0-7.7 [facility] Neutrophils/100 WBC (Bld) 70.5 % 47-70 [facility] Potassium [Moles/Vol] 4.9 mmol/L 3.5-5.1 [facility] Protein [Mass/Vol] 5.6 g/dL 6.4-8.2 [facility] Sodium [Moles/Vol] 137 mmol/L 136-145 [facility] WBC (Bld) [#/Vol] 8.5 10*3/uL 4.4-11.0 [facility] Bilirubin Test strip Ql (U)O rdered By: Florencio Greenfield on 11-17-2022 Bilirubin Ql (U) Negative Negative [facility] Blood erythrocytes count (nu mber/volume)Ordered By: Vanessa Matias on 11-17-2022 RBC (Bld) [#/Vol] 3.12 10*6/uL 4.6-6.2 [facility] Blood hemoglobin measurement (mass/volume)Ordered By: Vanessa Matias on 11-17-2022 Hemoglobin (Bld) [Mass/Vol] 8.3 g/dL 13.0-16.5 [facility] Blood lymphocytes/100 leukoc ytesOrdered By: Vanessa Matias on 11-17-2022 Lymphocytes/100 WBC (Bld) 15.7 % 19-41 [facility] Blood monocytes/100 leukocyt esOrdered By: Vanessa Matias on 11-17-2022 Monocytes/100 WBC (Bld) 11.9 % 0-10 [facility] Blood platelet mean volumeOr dered By: Vanessa Matias on 11-17-2022 Platelet mean volume (Bld) [Entitic vol] 9.6 fL 6.2-12.0 [facility] CBC W Auto Differential pane l (Bld)on 11-17-2022 Basophils (Bld) [#/Vol] 10*3/uL Normal <0.11 [facility] Comment on above: Order Comment: Speci men Type: BLOOD SPECIMENOrdering Facility: [facility] Address: [address] [place] [address] Performed By: #### 5 7021-8 ####[facility]ATORYCLIA [id number] [address] [place] Basophils/100 WBC (Bld) 0.1 % Normal [facility] Comment on above: Order Comment: Speci men Type: BLOOD SPECIMENOrdering Facility: [facility] Address: [address] [place] [address] Performed By: #### 5 7021-8 ####[facility]ORATORYCLIA [id number] [address] OF [place] Differential cell count method Nom (Bld) Auto Normal [facility] Comment on above: Order Comment: Speci men Type: BLOOD SPECIMENOrdering Facility: [facility] Address: [address] [place] [address] Performed By: #### 5 7021-8 ####[facility]ORATORYCLIA [id number] [place] [address] [place] Eosinophils (Bld) [#/Vol] 10*3/uL Normal <0.46 [facility] Comment on above: Order Comment: Speci men Type: BLOOD SPECIMENOrdering Facility: [facility] Address: [address] [place] [address] Performed By: #### 5 7021-8 ####[facility]ORATORYCLIA [id number] [address] Eosinophils/100 WBC (Bld) 0.1 % Normal [facility] Comment on above: Order Comment: Speci men Type: BLOOD SPECIMENOrdering Facility: [facility] Address: [address] [address] Performed By: #### 5 7021-8 ####[facility]ORATORYCLIA [id number] [address] Erythrocyte distribution width (RBC) [Ratio] 14.8 % Normal 11.5-15.0 [facility] Comment on above: Order Comment: Speci men Type: BLOOD SPECIMENOrdering Facility: [facility] Address: [address] [place] [address] Performed By: #### 5 7021-8 ####[facility]ORATORYCLIA [id number] [address] OF [facility] Hematocrit (Bld) [Volume fraction] 27.6 % Low 39.0-51.0 [facility] Comment on above: Order Comment: Speci men Type: BLOOD SPECIMENOrdering Facility: [facility] Address: [address] [place] [address] Performed By: #### 5 7021-8 ####[facility]ORATORYCLIA [id number] [address] OF [facility] Hemoglobin (Bld) [Mass/Vol] 8.6 g/dL Low 13.0-17.0 [facility] Comment on above: Order Comment: Speci men Type: BLOOD SPECIMENOrdering Facility: [facility] Address: [address] [place] [address] Performed By: #### 5 7021-8 ####[facility]ORATORYCLIA [id number] [address] [place] Immature granulocytes (Bld) [#/Vol] 0.04 10*3/uL Normal <0.10 [facility] Comment on above: Order Comment: Speci men Type: BLOOD SPECIMENOrdering Facility: [facility] Address: [address] [place] [address] Performed By: #### 5 7021-8 ####[facility]ORATORYCLIA [id number] [address] OF [place] Immature granulocytes/100 WBC (Bld) 0.5 % Normal [facility] Comment on above: Order Comment: Speci men Type: BLOOD SPECIMENOrdering Facility: [facility] Address: [address] [place] [address] Performed By: #### 5 7021-8 ####[facility]ORATORYCLIA [id number] [address] OF [facility] Lymphocytes (Bld) [#/Vol] 0.72 10*3/uL Low 1.00-4.00 [facility] Comment on above: Order Comment: Speci men Type: BLOOD SPECIMENOrdering Facility: [facility] Address: [address] [place] [address] Performed By: #### 5 7021-8 ####[facility] LABORATORYCLIA [id number] [address] Lymphocytes/100 WBC (Bld) 8.8 % Normal [facility] Comment on above: Order Comment: Speci men Type: BLOOD SPECIMENOrdering Facility: [facility] Address: [address] [place] [address] Performed By: #### 5 7021-8 ####[facility] LABORATORYCLIA [id number] [address] [place] MCH (RBC) [Entitic mass] 26.4 pg Normal 26.0-34.0 [facility] Comment on above: Order Comment: Speci men Type: BLOOD SPECIMENOrdering Facility: [facility] Address: [address] [place] [address] Performed By: #### 5 7021-8 ####[facility] LABORATORYCLIA [id number] [address] [place] MCHC (RBC) [Mass/Vol] 31.2 g/dL Normal 30.5-36.0 [facility] Comment on above: Order Comment: Speci men Type: BLOOD SPECIMENOrdering Facility: [facility] Address: [address] [place] [address] Performed By: #### 5 7021-8 ####[facility] LABORATORYCLIA [id number] [address] [place] MCV (RBC) [Entitic vol] 84.7 fL Normal 80.0-100.0 [facility] Comment on above: Order Comment: Speci men Type: BLOOD SPECIMENOrdering Facility: [facility] Address: [address] [place] [address] Performed By: #### 5 7021-8 ####[facility] LABORATORYCLIA [id number] [place] [address] [place] Monocytes (Bld) [#/Vol] 0.32 10*3/uL Normal <0.87 [facility] Comment on above: Order Comment: Speci men Type: BLOOD SPECIMENOrdering Facility: [facility] Address: [address] [place] [address] Performed By: #### 5 7021-8 ####[facility] LABORATORYCLIA [id number] [address] Monocytes/100 WBC (Bld) 3.9 % Normal [facility] Comment on above: Order Comment: Speci men Type: BLOOD SPECIMENOrdering Facility: [facility] Address: [address] [place] [address] Performed By: #### 5 7021-8 ####[facility] LABORATORYCLIA [id number] [address] [place] Neutrophils (Bld) [#/Vol] 7.07 10*3/uL Normal 1.45-7.50 [facility] Comment on above: Order Comment: Speci men Type: BLOOD SPECIMENOrdering Facility: [facility] Address: [address] [place] [address] Performed By: #### 5 7021-8 ####[facility] LABORATORYCLIA [id number] [address] [place] Neutrophils/100 WBC (Bld) 86.6 % Normal [facility] Comment on above: Order Comment: Speci men Type: BLOOD SPECIMENOrdering Facility: [facility] Address: [address] [place] [address] Performed By: #### 5 7021-8 ####[facility]ORATORYCLIA [id number] [address] [place] Nucleated RBC (Bld) [#/Vol] 10*3/uL Normal <0.01 [facility] Comment on above: Order Comment: Speci men Type: BLOOD SPECIMENOrdering Facility: [facility] Address: [address] [place] [address] Performed By: #### 5 7021-8 ####[facility] LABORATORYCLIA [id number] [address] [place] Nucleated RBC/100 WBC (Bld) [Ratio] 0.0 /100 WBC Normal [facility] Comment on above: Order Comment: Speci men Type: BLOOD SPECIMENOrdering Facility: [facility] Address: [address] [place] [address] Performed By: #### 5 7021-8 ####[facility] LABORATORYCLIA [id number] [address] [place] Platelet mean volume (Bld) [Entitic vol] 9.8 fL Normal 9.0-12.7 [facility] Comment on above: Order Comment: Speci men Type: BLOOD SPECIMENOrdering Facility: [facility] Address: [address] [place] [address] Performed By: #### 5 7021-8 ####[facility] LABORATORYCLIA [id number] [address] [place] Platelets (Bld) [#/Vol] 292 10*3/uL Normal 150-400 [facility] Comment on above: Order Comment: Speci men Type: BLOOD SPECIMENOrdering Facility: [facility] Address: [address] [place] [address] Performed By: #### 5 7021-8 ####[facility]ORATORYCLIA [id number] [address] [place] RBC (Bld) [#/Vol] 3.26 10*6/uL Low 4.20-6.00 [facility] Comment on above: Order Comment: Speci men Type: BLOOD SPECIMENOrdering Facility: [facility] Address: [address] [address] Performed By: #### 5 7021-8 ####[facility] LABORATORYCLIA [id number] [address] OF [facility] WBC (Bld) [#/Vol] 8.17 10*3/uL Normal 3.70-11.00 [facility] Comment on above: Order Comment: Speci men Type: BLOOD SPECIMENOrdering Facility: [facility] Address: [address] [place] [address] Performed By: #### 5 7021-8 ####[facility] LABORATORYCLIA [id number] [address] CONSULT PROGon 11-17-2022 CONSULT PROG Normal [facility] Comprehensive metabolic 2000 panelon 11-17-2022 Albumin [Mass/Vol] 2.8 g/dL Low 3.9-4.9 [facility] Comment on above: Order Comment: Speci men Type: BLOOD SPECIMENOrdering Facility: [facility] Address: [address] [place] [address] Performed By: #### 2 4323-8, 93140-7, 2777-1, 6-3 ####[facility] LABORATORYCLIA [id number] [address] STATES OF [facility] ALP [Catalytic activity/Vol] 67 U/L Normal 38-113 [facility] Comment on above: Order Comment: Speci men Type: BLOOD SPECIMENOrdering Facility: [facility] Address: [address] [place] [address] Performed By: #### 2 4323-8, 39176-8, 277-1, 6-3 ####[facility]ORATORYCLIA [id number] [address] STATES OF [facility] ALT With P-5'-P [Catalytic activity/Vol] 23 U/L Normal 10-54 [facility] Comment on above: Order Comment: Speci men Type: BLOOD SPECIMENOrdering Facility: [facility] Address: [address] [place] [address] Performed By: #### 2 4323-8, 95275-1, 2776-, 6-3 ####[facility] LABORATORYCLIA [id number] [place] [address] [place] Anion gap [Moles/Vol] 12 mmol/L Normal 9-18 [facility] Comment on above: Order Comment: Speci men Type: BLOOD SPECIMENOrdering Facility: [facility] Address: [address] [place] [address] Performed By: #### 2 4323-8, 00207-7, 2776-, 6-3 ####[facility]ORATORYCLIA [id number] [place] [address] [place] AST With P-5'-P [Catalytic activity/Vol] 59 U/L High 14-40 [facility] Comment on above: Order Comment: Speci men Type: BLOOD SPECIMENOrdering Facility: [facility] Address: [address] [place] [address] Performed By: #### 2 4323-8, 75255-8, 1, 6-3 ####[facility]PITALCLIA [id number] [place] [address] [place] Bilirubin [Mass/Vol] 0.3 mg/dL Normal 0.2-1.3 [facility] Comment on above: Order Comment: Speci men Type: BLOOD SPECIMENOrdering Facility: [facility] Address: [address] [place] [address] Performed By: #### 2 4323-8, 13072-4, 2776-1, 6-3 ####[facility]ORATORYCLIA [id number] [place] [address] [place] Calcium [Mass/Vol] 8.1 mg/dL Low 8.5-10.2 [facility] Comment on above: Order Comment: Speci men Type: BLOOD SPECIMENOrdering Facility: [facility] Address: [address] [place] [phone] Performed By: #### 2 4323-8, 20816-7, 2777-1, 3016-3 ####[facility]ORATORYCLIA [id number] [place] [address] [place] Chloride [Moles/Vol] 100 mmol/L Normal 97-105 [facility] Comment on above: Order Comment: Speci men Type: BLOOD SPECIMENOrdering Facility: [facility] Address: [address] [address] Performed By: #### 2 4323-8, 73838-2, 2777-1, 3016-3 ####[facility]ORATORYCLIA [id number] [address] [place] CO2 [Moles/Vol] 25 mmol/L Normal 22-30 [facility] Comment on above: Order Comment: Speci men Type: BLOOD SPECIMENOrdering Facility: [facility] Address: [address] [address] Performed By: #### 2 4323-8, 66668-6, 2777-1, 3016-3 ####[facility]ORATORYCLIA [id number] [address] [place] Creatinine [Mass/Vol] 1.53 mg/dL High 0.73-1.22 [facility] Comment on above: Order Comment: Speci men Type: BLOOD SPECIMENOrdering Facility: [facility] Address: [address] [place] [address] Performed By: #### 2 4323-8, 52505-3, 2777-1, 3016-3 ####[facility] LABORATORYCLIA [id number] [address] ESTIMATED GLOMERULAR FILTRATION RATE 53 mL/min/1.73m??? Low >=60 [facility] Comment on above: Order Comment: Speci men Type: BLOOD SPECIMENOrdering Facility: [facility] Address: [address] [address] Result Comment: Lola mated Glomerular Filtration Rate (eGFR) is calculated using the 2020 CKD-EPI creatinine equation. This equation utilizes serum creatinine, sex, and age as parameters. The creatinine assay has traceable calibration to isotope dilution-mass spectrometry. Refer to KDIGO guidelines for clinical interpretation. In patients with unstable renal function, e.g. those with acute kidney injury, the eGFR may not accurately reflect actual GFR. Performed By: #### 2 4323-8, 61512-8, 2776-, 3015-3 ####[facility]ORATORYCLIA [id number] [place] [address] [place] Glucose [Mass/Vol] 249 mg/dL High 74-99 [facility] Comment on above: Order Comment: Doroteo zavala Type: BLOOD SPECIMENOrdering Facility: [facility] Address: [address] [place], [place] [phone] Result Comment: The [place] Diabetes [employer] (ADA) provides guidance for cutoff values for fasting glucose and random glucose. The ADA defines fasting as no caloric intake for at least 8 hours. Fasting plasma glucose results between 100 to 125 mg/dL indicate increased risk for diabetes (prediabetes).Fasting plasma glucose results greater than or equal to 126 mg/dL meet the criteria for diagnosis of diabetes. In the absence of unequivocal hyperglycemia, results should be confirmed by repeat testing. In a patient with classic symptoms of hyperglycemia or hyperglycemic crisis, random plasma glucose results greater than or equal to 200 mg/dL meet the criteria for diagnosis of diabetes.Reference: Standards of Medical Care in Diabetes 2016, [place] [employer]. Diabetes Care. 2016.39(Suppl 1). Performed By: #### 2 4323-8, , 2776-05, 3015-3 ####[facility] LABORATORYCLIA [id number] [place] [address] [place] Potassium [Moles/Vol] 5.0 mmol/L Normal 3.7-5.1 [facility] Comment on above: Order Comment: Doroteo zavala Type: BLOOD SPECIMENOrdering Facility: [facility] Address: [address] [place] [address] Performed By: #### 2 4323-8, 04246-7, 2776-, 3015-3 ####[facility]ORATORYCLIA [id number] [place] [address] [place] Protein [Mass/Vol] 5.9 g/dL Low 6.3-8.0 [facility] Comment on above: Order Comment: Speci men Type: BLOOD SPECIMENOrdering Facility: [facility] Address: [address] [place] [address] Performed By: #### 2 4323-8, 82914-1, 2777-1, 3016-3 ####[facility] LABORATORYCLIA [id number] [place] [id number] [place] Sodium [Moles/Vol] 137 mmol/L Normal 136-144 [facility] Comment on above: Order Comment: Speci men Type: BLOOD SPECIMENOrdering Facility: [facility] Address: [address] [place] [address] Performed By: #### 2 4323-8, 52121-3, 2777-1, 3016-3 ####[facility]ORATORYCLIA [id number] [place] [address] [place] Urea nitrogen [Mass/Vol] 79 mg/dL High 9-24 [facility] Comment on above: Order Comment: Speci men Type: BLOOD SPECIMENOrdering Facility: [facility] Address: [address] [place] [address] Performed By: #### 2 4323-8, 53896-6, 2777-1, 3016-3 ####[facility] LABORATORYCLIA [id number] [place] [address] [place] Culture, urineOrdered By: Yulia Greenfield on 11-17-2022 Bacteria identified Cx Nom (U) Enterococcus faecalis [facility] Determination of erythrocyte mean corpuscular volume (MCV)Ordered By: Vanessa Matias on 11-17-2022 MCV (RBC) [Entitic vol] 87.5 fL 80-94 [facility] Glucose Glucometer (BldC) [M ass/Vol]Ordered By: Vanessa Matias on 11-17-2022 Glucose [Mass/Vol] 115 mg/dL 74-106 [facility] Comment on above: MANAGEMENT OF PATIEN T CARE PER NURSING PROTOCOL Gram stain for investigation of transfusion reactionOrdered By: Florencio Greenfield on 11-17-2022 Microscopic observation Gram stain Nom (Unsp spec) [facility] HISTORY PHYSICALon HISTORY PHYSICAL Normal [facility] Hematocrit Auto (Bld) [Volum e fraction]Ordered By: Vanessa Matias on 11-17-2022 Hematocrit (Bld) [Volume fraction] 27.3 % 40-54 [facility] Ketones Test strip Ql (U)Ord ered By: Florencio Greenfield on 11-17-2022 Ketones Ql (U) Negative Negative [facility] Laboratory - Chemistry and C hemistry - challengeOrdered By: Vanessa Matias on 11-17-2022 ALP [Catalytic activity/Vol] 59 U/L 45-117 [facility] ALT [Catalytic activity/Vol] 28 U/L 16-61 [facility] CO2 [Moles/Vol] 27.0 mmol/L 21.0-32.0 [facility] Globulin (S) [Mass/Vol] 3.6 g/dL 2.2-4.2 [facility] Magnesium [Mass/Vol] 3.3 mg/dL 1.6-2.6 [facility] Urea nitrogen/Creatinine [Mass ratio] 46.7 mg/mg 10-20 [facility] Laboratory - Hematology and Cell countsOrdered By: Vanessa Matias on 11-17-2022 Erythrocyte distribution width (RBC) [Entitic vol] 47.3 fL 35.1-43.9 [facility] Erythrocyte distribution width (RBC) [Ratio] 14.8 % 11.6-14.6 [facility] Immature granulocytes/100 WBC (Bld) 0.500 % 0.0-0.9 [facility] Comment on above: IG% - Immature Granu locytes (promyelocytes, myelocytes and metamyelocytes) > 1% indicates that a LEFT SHIFT is Present. MCH (RBC) [Entitic mass] 26.6 pg 27.0-32.0 [facility] Nucleated RBC/100 WBC (Bld) [Ratio] 0 % 0-5 [facility] Laboratory - Microbiology an d Antimicrobial susceptibilityOrdered By: Donovan Lamar on 07-05-2023 Bacteria identified Cx Nom (Bld) Enterococcus faecalis [facility] MCHC Auto (RBC) [Mass/Vol]Or dered By: Vanessa Matias on 11-17-2022 MCHC (RBC) [Mass/Vol] 30.4 g/dL 32-36 [facility] MRI LUMBAR SPINE WO/W IVCONo n 11-17-2022 MRI LUMBAR SPINE WO/W IVCON Normal [facility] MRI THORACIC SPINE WO/W IVCO Non 11-17-2022 MRI THORACIC SPINE WO/W IVCON Normal [facility] Magnesium SerPl-mCncon 11-17 Magnesium [Mass/Vol] 2.6 mg/dL High 1.7-2.3 [facility] Comment on above: Order Comment: Speci men Type: BLOOD SPECIMENOrdering Facility: [facility] Address: [address] [place] [phone] Performed By: #### 2 4323-8, 56260-5, 2777-1, 3016-3 ####[facility]ORATORYCLIA [id number] [place] [address] [place] Mucus LM Ql (Urine sed)Order ed By: Florencio Greenfield on 11-17-2022 Mucus Ql (Urine sed) 0 SEEN /hpf [facility] Nitrite Test strip Ql (U)Ord ered By: Florencio Greenfield on 11-17-2022 Nitrite Ql (U) Negative Negative [facility] No Panel InformationOrdered By: Donovan Lamar on 11-17-2022 Bacteria Detection (PCR) Enterococcus faecalis [facility] No Panel InformationOrdered By: Vanessa Matias on 11-17-2022 Estimated Creatinine Clearance Calc 36.46 ml/min [facility] Estimated GFR (MDRD) Amer 41 mL/min >60 [facility] Comment on above: GFR Calc Estimated GFR (MDRD) Non-Af Amer 34 mL/min >60 [facility] Comment on above: Non- GFR Calc Phosphate SerPl-mCncon 11-17 Phosphate [Mass/Vol] 3.9 mg/dL Normal 2.7-4.8 [facility] Comment on above: Order Comment: Speci men Type: BLOOD SPECIMENOrdering Facility: [facility] Address: [address] [place] [address] Performed By: #### 2 4323-8, 63212-0, 2777-1, 3016-3 ####[facility]ORATORYCLIA [id number] [place] [address] [place] Platelets bldOrdered By: Heidi Matias on 11-17-2022 Platelets (Bld) [#/Vol] 283 10*3/uL 150-450 [facility] Protein Test strip Ql (U)Ord ered By: Florencio Greenfield on 11-17-2022 Protein Ql (U) 30 mg/dl Negative [facility] STAPH AUREUS PCRon S. aureus and MRSA panel ABIGAIL+probe (Nose) Abnormal Negative [facility] Comment on above: Order Comment: Speci men Type: SWAB OF INTERNAL NOSEOrdering Facility: [facility] Address: [address] [place] [address] Result Comment: Posi tive for Staphylococcus aureus by PCR.Negative for MRSA by PCR Performed By: #### S APCR ####[facility] LABORATORYCLIA [id number] [place] [address] [place] Serum or plasma albumin sarah urement (mass/volume)Ordered By: Vanessa Matias on 11-17-2022 Albumin [Mass/Vol] 2.0 g/dL 3.2-5.0 [facility] Serum or plasma albumin/glob ulin mass ratioOrdered By: Vanessa Matias on 11-17-2022 Albumin/Globulin [Mass ratio] 0.6 {ratio} 0.9-2.4 [facility] Serum or plasma calcium sarah urement (mass/volume)Ordered By: Vanessa Matias on 11-17-2022 Calcium [Mass/Vol] 7.8 mg/dL 8.5-10.1 [facility] Serum or plasma creatinine m easurement (mass/volume)Ordered By: Vanessa Matias on 11-17-2022 Creatinine [Mass/Vol] 2.14 mg/dL 0.70-1.30 [facility] Comment on above: The validity of the calculated GFR & GFRAA in patients over 70 years has not been determined. Clinical correlation is essential. Serum or plasma urea nitroge n measurement (mass/volume)Ordered By: Vanessa Matias on 11-17-2022 Urea nitrogen [Mass/Vol] 100 mg/dL 7-18 [facility] Squamous epithelial cells de tection in urine sediment by light microscopyOrdered By: Florencio Greenfield on 11-17-2022 Epithelial cells.squamous LM Ql (Urine sed) 0 SEEN /hpf 0-5 [facility] TSH SerPl-aCncon 11-17-2022 TSH Qn 0.402 m[IU]/L Normal 0.270-4.200 [facility] Comment on above: Order Comment: Speci men Type: BLOOD SPECIMENOrdering Facility: [facility] Address: [address] [place] [phone] Performed By: #### 2 4323-8, 72098-6, 2777-1, 3016-3 ####[facility] LABORATORYCLIA [id number] [place] [address] [place] Thin prep Papanicolaou smear with manual screeningOrdered By: Vanessa Matias on 11-17-2022 Thin prep Papanicolaou smear with manual screening 53 U/L 15-37 [facility] Thin prep Papanicolaou smear with manual screening 6 5-15 [facility] Urine Legionella pneumophila antigen detectionOrdered By: Florencio Greenfield on 11-17-2022 L. pneumophila Ag Ql (U) [facility] Urine blood detectionOrdered By: Florenico Greenfield on 11-17-2022 RBC Ql (U) 250 /ul Negative [facility] RBC Ql (U) 5-10 SEEN /hpf 0-5 [facility] Urine clarityOrdered By: Florencio Greenfield on 11-17-2022 Clarity (U) Sl. Cloudy Clear [facility] Urine color determinationOrd ered By: Florencio Greenfield on 11-17-2022 Color (U) Yellow Yellow [facility] Urine glucose detectionOrder ed By: Florencio Greenfield on 11-17-2022 Glucose Ql (U) Normal mg/dl Normal [facility] Urine leukocyte esterase det ection by dipstickOrdered By: Florencio Greenfield on 11-17-2022 Leukocyte esterase Test strip Ql (U) 500 /ul Negative [facility] Urine pHOrdered By: Florencio watkins on 11-17-2022 pH (U) 6.0 [pH] 5.0 - 8.0 [facility] Urine sediment bacteria coun t by microscopy (number/high power field)Ordered By: Florencio Greenfield on 11-17-2022 Bacteria LM.HPF (Urine sed) [#/Area] 2 /[HPF] None Seen [facility] Urine specific gravity measu rementOrdered By: Florencio Greenfield on 11-17-2022 Specific gravity (U) [Rel density] 1.015 1.002-1.030 [facility] Urobilinogen Auto test strip Ql (U)Ordered By: Florencio Greenfield on 11-17-2022 Urobilinogen Ql (U) Normal mg/dl Normal [facility] Vancomycin random [Mass/Vol] on 11-17-2022 Vancomycin [Mass/Vol] 13.3 ug/mL Normal 10.0-20.0 [facility] Comment on above: Order Comment: Speci men Type: BLOOD SPECIMENOrdering Facility: [facility] Address: [address] [place] [address] Result Comment: Refe rence ranges and high/low indicator flags are provided as general guidelines only. The treating physician must determine appropriate target levels/dosing based on the specific clinical situation. Performed By: #### 4 091-5 ####[facility] LABORATORYCLIA [id number] [place] [address] [place] Vit B12 SerPl-mCncon 023 Cobalamin (Vitamin B12) [Mass/Vol] 1943 pg/mL High 232-1245 [facility] Comment on above: Order Comment: Speci men Type: BLOOD SPECIMENOrdering Facility: [facility] Address: [address] [place] [address] Performed By: #### 2 132-9 ####[facility]ORATORYCLIA [id number] [place] [address] [place] Serum procalcitonin measurem entOrdered By: Vanessa Matias on 11-16-2022 Procalcitonin [Mass/Vol] 0.96 ng/mL 0.00-0.09 [facility] Comment on above: A procalcitonin (PCT ) level above 2.0 ng/mL on the first day of ICU admission is associated with a high risk for progression to severe sepsis and/or septic shock. A PCT level below 0.5 ng/mL on the first day of ICU admission is associated with a low risk for progression to severe and/or septic shock. Note: Concentrations <0.5 ng/mL do not exclude an infection on account of localized infections (without systemic signs) which can be associated with such low concentrations, or a systemic infection in its initial stages (<6 hours). Furthermore, increased procalcitonin can occur without infection. PCT concentrations between 0.5 and 2.0 ng/mL should be interpreted taking into account the patient's history. It is recommended to retest PCT within 6-24 hours if any concentrations <2 ng/mL are obtained. Basophil percentageOrdered B y: Donovan Lamar on 11-15-2022 Lactate [Moles/Vol] 2.0 mmol/L 0.4-2.0 [facility] Comment on above: Critical Result(s) C alled at: 00:00:50 11/16/2022 by: IRON NINO TO LULÚ GALLEGO. Results read back by same. Chloride [Moles/Vol] 93 mmol/L 98-107 [facility] Glucose [Mass/Vol] 240 mg/dL 74-106 [facility] Comment on above: Glucose result great er than or equal to 200 mg/dLsuggests DIABETES MELLITUS per A.D.A. criteria. Lactate [Moles/Vol] 2.4 mmol/L 0.4-2.0 [facility] Comment on above: Critical Result(s) C alled at: 19:31:07 11/15/2022 by: Debbie Davies. Results read back by same. Potassium [Moles/Vol] 6.6 mmol/L 3.5-5.1 [facility] Comment on above: Critical Result(s) C alled at: 19:16:56 11/15/2022 by: Debbie Correia. Results read back by same. Sodium [Moles/Vol] 126 mmol/L 136-145 [facility] WBC (Bld) [#/Vol] 21.0 10*3/uL 4.4-11.0 [facility] Blood erythrocytes count (nu mber/volume)Ordered By: Donovan Lamar on 11-15-2022 RBC (Bld) [#/Vol] 3.81 10*6/uL 4.6-6.2 [facility] Blood hemoglobin measurement (mass/volume)Ordered By: Donovan Lamar on 11-15-2022 Hemoglobin (Bld) [Mass/Vol] 10.1 g/dL 13.0-16.5 [facility] Blood platelet mean volumeOr dered By: Donovan Lamar on 11-15-2022 Platelet mean volume (Bld) [Entitic vol] 9.9 fL 6.2-12.0 [facility] Determination of erythrocyte mean corpuscular volume (MCV)Ordered By: Donovan Lamar on 11-15-2022 MCV (RBC) [Entitic vol] 87.4 fL 80-94 [facility] Glucose Glucometer (BldC) [M ass/Vol]Ordered By: Donovan Lamar on 11-15-2022 Glucose [Mass/Vol] 215 mg/dL 74-106 [facility] Comment on above: MANAGEMENT OF PATIEN T CARE PER NURSING PROTOCOL HCO3 (BldA) [Moles/Vol]Order ed By: Donovan Lamar on 11-15-2022 HCO3 (Bld) [Moles/Vol] 24 mmol/L 22-26 [facility] Hematocrit Auto (Bld) [Volum e fraction]Ordered By: Donovan Lamar on 11-15-2022 Hematocrit (Bld) [Volume fraction] 33.3 % 40-54 [facility] Laboratory - Chemistry and C hemistry - challengeOrdered By: Donovan Lamar on 11-15-2022 CO2 [Moles/Vol] 25 mmol/L 23-33 [facility] CO2 [Moles/Vol] 23.0 mmol/L 21.0-32.0 [facility] Natriuretic peptide B (Bld) [Mass/Vol] 3.9 pg/mL 0-100 [facility] Urea nitrogen/Creatinine [Mass ratio] 22.0 mg/mg 10-20 [facility] Laboratory - Hematology and Cell countsOrdered By: Donovan Lamar on 11-15-2022 Erythrocyte distribution width (RBC) [Entitic vol] 47.4 fL 35.1-43.9 [facility] Erythrocyte distribution width (RBC) [Ratio] 14.7 % 11.6-14.6 [facility] MCH (RBC) [Entitic mass] 26.5 pg 27.0-32.0 [facility] MCHC Auto (RBC) [Mass/Vol]Or dered By: Donovan Lamar on 11-15-2022 MCHC (RBC) [Mass/Vol] 30.3 g/dL 32-36 [facility] No Panel InformationOrdered By: Michele Montes on 11-15-2022 Methicillin-Resist S.aureus DNA PCR Negative Negative [facility] No Panel InformationOrdered By: Donovan Lamar on 11-15-2022 Troponin I High Sensitivity 6 pg/mL 3.0-78.0 [facility] Comment on above: Please Note: New Nelsy t Units and Gender Specific Reference Ranges. For more information see Policy Stat Procedure [place] High Sensitivity Troponin (TNIH) and attachments. Bed Mix Venous Bld PCO2 at Pat Temp 41.0 mmHg 41-51 [facility] Blood Gas Liter Flow 3.0 /min [facility] Blood Gas Specimen Type MARY ELLEN [facility] Oxygen Delivery Device Cannula [facility] Venous Blood Base Excess -2 mmol/L -1.0-3.5 [facility] Estimated Creatinine Clearance Calc 15.36 ml/min [facility] Estimated GFR (MDRD) Amer 15 mL/min >60 [facility] Comment on above: GFR Calc Estimated GFR (MDRD) Non-Af Amer 13 mL/min >60 [facility] Comment on above: Non- GFR Calc Troponin I High Sensitivity 7 pg/mL 3.0-78.0 [facility] Comment on above: Please Note: New Nelsy t Units and Gender Specific Reference Ranges. For more information see Policy Stat Procedure [place] High Sensitivity Troponin (TNIH) and attachments. PO2 venousOrdered By: Donovan Lamar on 11-15-2022 Oxygen (BldV) [Partial pressure] 113 mm[Hg] 25-40 [facility] Platelets bldOrdered By: Miguel Lamar on 11-15-2022 Platelets (Bld) [#/Vol] 387 10*3/uL 150-450 [facility] Serum or plasma calcium sarah urement (mass/volume)Ordered By: Donovan Lamar on 11-15-2022 Calcium [Mass/Vol] 9.8 mg/dL 8.5-10.1 [facility] Serum or plasma creatinine m easurement (mass/volume)Ordered By: Donovan Lamar on 11-15-2022 Creatinine [Mass/Vol] 5.08 mg/dL 0.70-1.30 [facility] Comment on above: The validity of the calculated GFR & GFRAA in patients over 70 years has not been determined. Clinical correlation is essential. Serum or plasma urea nitroge n measurement (mass/volume)Ordered By: Donovan Lamar on 11-15-2022 Urea nitrogen [Mass/Vol] 112 mg/dL 7-18 [facility] Comment on above: Critical Result(s) C alled at: 19:16:56 11/15/2022 by: Debbie Alfaro to Bren. Results read back by same. Thin prep Papanicolaou smear with manual screeningOrdered By: Donovan Laamr on 11-15-2022 Thin prep Papanicolaou smear with manual screening 10 - [facility] Vital signsOrdered By: Jessica Lamar on 11-15-2022 Oxygen saturation in Blood 98 % 50-70 [facility] pH measurementOrdered By: Julian Lamar on 11-15-2022 pH (Unsp spec) 7.37 [pH] 7.32-7.42 [facility] MRI THORACIC SP W/O CONTRAST on 05-15-2021 MRI THORACIC SP W/O CONTRAST EXAMINATION: MRI THORACIC SP W/O CONTRAST CLINICAL HISTORY: White compression fracture of unspecified thoracic vertebra. Spondylolisthesis of lumbar region. Concern for possible hardware compression of spinal cord. TECHNIQUE: Routine thoracic spine MR protocol. MQ: [id number] COMPARISON: 11/19/2020 AP and lateral chest radiographs, 10/28/[address], and 01/07/2021 portable chest radiograph 6 RESULT: Counting reference: Craniocervical junction. The more conventional cab driver that include the lumbosacral junction are not available for comparison. For the purposes of this report, anatomic variants: Assume the first normal thoracic rib is at the T1 level. Localizer images: Noncontributory Alignment: Kyphotic deformity centered at T10-T11. No substantial spondylolisthesis. Cord: The cervical spinal cord appears to be within normal limits of signal and morphology within the constraints of extensive susceptibility artifact from the surrounding hardware substantially degraded assessment from the T10-L1 levels with the remainder of the caudal portions of the canal beyond the [id number]. Susceptibility associated with the transpedicular screws at T10, T11, T12, and L1 appears to be maintained lateral to the canal and thoracic spinal cord. Bone marrow signal/fracture: Susceptibility related to bilateral transpedicular screws at T10, T11, T12, and L1 with associated vertical fixation rods and the remaining carpal portions of the posterior spinal fusion hardware extending beyond the [id number]. There appear to be postoperative changes of prior laminectomies at T10-T11, T11-T12, and T12-L1, although this is suboptimally visualized due to extensive susceptibility artifact. Minimal anterior endplate edema at T9 and probable edema along the endplates superiorly and inferiorly at T10 and equivocally along the superior endplate of T11 within the constraints of extensive susceptibility artifact. Fluid signal insinuates into a ventral cleft within the T10 vertebral body with there appears to be slight gain of height relative to the 11/19/2020 lateral chest radiographs within the constraints of differing modalities suggesting expansile separation of the prior ventral wedge compression fracture. Remote appearing ventral wedge compression fracture deformity at T11. Thoracic paraspinal soft tissues: Dorsal paramedian soft tissue disruption from prior laminectomies and posterior fusion. Small amount of edema and the paraspinal musculature superior to the hardware at the level of T9. Mild paravertebral soft tissue edema centered at T10 and extending cranially to the level of T9 and caudally to the level of T12. Increased fluid signal is also seen within the T9-T10 and T10-T11 disc spaces and to a lesser degree at T11-T12. Canal and foramina: Mild diffuse developmental thoracic spinal canal narrowing secondary to short pedicles. Small central disc protrusion at C7-T1 ventrally abutting the cord without substantial superimposed spinal canal narrowing. Small right central disc protrusion at T6-T7 and T7-T8 without significant superimposed spinal canal narrowing. Small disc bulge at T9-T10. Moderate incomplete effacement of the thecal sac at the level of T10 and to a slightly lesser degree at T11 and T12 within the constraints of acquisition. Multiple areas of facet hypertrophy contributing to varying degrees of [id number] foraminal narrowing throughout the mid and lower thoracic spine, but no severe foraminal stenosis is clearly demonstrated. IMPRESSION: Postoperative changes of extensive posterior spinal fusion hardware at the level of T10 with the more caudal portions of the previously demonstrated hardware beyond the [id number]. There is now slight expansion of the previously seen T10 ventral wedge compression fracture with fluid attenuating into a ventral cleft in the T10 vertebral body as well as increased surrounding paravertebral soft tissue inflammatory changes and increased signal within the adjacent disc spaces and suspected to be within the adjacent endplates as well. These changes may reflect alterations in biomechanical stress following placement of the hardware, although superimposed infection is not entirely excluded on the basis of this appearance. Within the constraints of extensive magnetic susceptibility artifact from the adjacent hardware there is no clear impingement on the thoracic spinal cord, altho there appears to be overall developmental spinal canal narrowing which is exacerbated by the thoracic kyphosis centered at T10-T11 where there appears to be moderate effacement of the thecal sac, but no high-grade spinal canal stenosis nor findings to clearly indicate underlying cord compression nor cord signal abnormality. Anatomic Thoracic/Lumbar Variant: Assume the first normal thoracic rib is at the T1 level. This report was electronicall (more content not included)... Normal [facility] DISCH.SUMon 01-16-2021 DISCH.SUM [facility] Patient Name: MELISSA ELIAS [address] Date of : [address] [address] Unit Number: [id number] Discharge Summary Patient Status: DIS IN Attending Doctor: Omari Rabago MD Service Date: 01/16/21 1237 Discharge Summary Admit Date Admission Date Time: 01/07/2021 0600 Anticipated Discharge Date 01/14/21 Final Dx/Problem List 1. Lumbar adjacent segment disease with spondylolisthesis On Tue 9:03a Jan 14, 2021 PALMIRA LEWIS wrote Status post L2-3 transforaminal lumbar interbody fusion with intervertebral body device, T10-L3 posterior spinal fusion, L5-S1 posterior spinal fusion, exploration of fusion at L5 -S1, partial removal of L3-S1 and pelvic posterior instrumentation with 3 instrumentation T10-S1 with bilateral pelvic region patient, L2-3 david osteotomy, local bone grafting, allograft and BMP on 01/07/2021. Postop day #7: Vitals stable, afebrile. Is having stools, passing flatus. He is taking stool softeners and MiraLAX twice daily at home as a baseline. Also taking these and laxatives here. Spoke with him at length regarding continuation of this especially while he is on pain medication. Encouraged ambulation, lumbar spine precautions. DVT prophylaxis with SCDs, ambulation. Lovenox to resume today. Prescription for 2 weeks in his chart. If drainage increases/bleeding increases from his incision once he is home, patient was instructed to stop this. Discussed with Dr. Rabago today. We will plan for discharge home today. Also spoke with Dr. Anderson regarding this, okay from his standpoint as well. Follow-up with Dr. Rabago as scheduled on 01/22/2021 at 1:15 PM 2. Therapeutic opioid induced constipation Patient Problems Reviewed: Yes Chief Complaint/HPI Back pain Reason for Admission Status post L2-3 transforaminal lumbar interbody fusion with intervertebral body device, T10-L3 posterior spinal fusion, L5-S1 posterior spinal fusion, exploration of fusion L5-S1 , partial removal of L3-S1 and pelvic posterior instrumentation with 3 instrumentation T10 -S1 with bilateral pelvic region rotation, L2-L3 david osteotomy, local bone grafting, allograft and BMP Operations/Procedures L2-3 transforaminal lumbar interbody fusion with intervertebral body device, T10-L3 posterior spinal fusion, L5-S1 posterior spinal fusion, exploration of fusion L5-S1, partial removal of L3-S1 and pelvic posterior instrumentation with 3 instrumentation T10- S1 with bilateral pelvic region rotation, L2-L3 david osteotomy, local bone grafting, allograft and BMP on 01/07/2021 Hospital Course This is a 55-year-old male who was following in the office with Dr. Rabago for his progressive neurogenic claudication and lower extremity weakness. Imaging showed severe spinal stenosis in the lumbar region, history of previous posterior spinal fusion, hardware fracture/failure. The patient chose to proceed with operative intervention as outlined below, informed consent was obtained. On 01/07/2021, he came into [facility] and underwent L2-3 transforaminal lumbar interbody fusion with intervertebral body device, T10-L3 posterior spinal fusion, L5-S1 posterior spinal fusion, exploration of fusion L5-S1, partial removal of L3-S1 and pelvic posterior instrumentation with 3 instrumentation T10-S1 with bilateral pelvic region rotation, L2-L3 david osteotomy, local bone grafting, allograft and BMP with Dr. Rabago. The patient tolerated the procedure well and had no complications during the surgery or the subsequent recovery from anesthesia. They were then taken to the orthopedic unit for further recovery, physical therapy, and occupational therapy. Throughout the remainder of his stay, he worked with PT and OT, lumbar spine precautions. From a medical perspective, he was followed by internal medicine consult, greatly appreciate their assistance. He did have issues with constipation, medications were given, patient was monitored closely. That issue seemed to resolve. Pain control was another issue that he struggled with, however this also improved with time, medication adjustments. By 01/14/2021, the patient was stable, feeling better, mobility had improved to the point that he was able to be discharged that day in stable condition. He will follow-up with Dr. Rabago as scheduled Vital Signs Vital Signs (Last) Result Date Time Pulse Ox 95 01/14 0720 B/P 176/49 01/14 0720 Temp 98.1 01/14 0720 Pulse 87 01/14 0720 Resp 18 01/14 0720 FiO2 21 01/11 0155 O2 Delivery BIPAP 01/09 0329 O2 Flow Rate 3 01/08 0807 Pertinent Physical Findings Pertinent physical findings on discharge were that the patient was alert, no acute distress, no shortness breath or chest pain, pain was under control, surgical dressing was dry and intact, and they were in stable condition. Consults Internal Medici (more content not included)... Normal [facility] [place] GLUCOSE METERon 01-14-2021 Glucose [Mass/Vol] 135 mg/dL High 85-125 [facility] [place] Glucose [Mass/Vol] 153 mg/dL High 85-125 [facility] [place] PROG.NOTEon 01-14-2021 PROG.NOTE [facility] Patient Name: MELISSA ELIAS [address] Date of : [address] [facility] Unit Number: [id number] Progress Note-Physician Patient Status: ADM IN Attending Doctor: Omari Rabago MD Service Date: 01/14/21 0657 Subjective S: (2 ROS minimum) Positive bowel movement x2 yesterday. Enema helped. Positive flatus also. Objective (ROS) Nursing Vitals Vital Signs (Last) Result Date Time Pulse Ox 94 01/14 2240 B/P 134/54 01/14 2240 Temp 98.3 01/14 2240 Pulse 82 01/13 2240 Resp 18 01/13 224 FiO2 21 01/11 0155 O2 Delivery BIPAP 01/09 0329 O2 Flow Rate 3 01/08 0807 Physical Exam Neurological / Psychiatric Alert, Orientation X3, Affect Normal Respiratory Normal Breathing Effort, Clear Lungs Cardiovascular Heart RRR Gastrointestinal Normal Bowel Sounds, Non Tender Diagnostic Data: Lab 24hr (CBC/BMP [facility]) 01/14/21 0615: Whole Bld Glucose 153 H 01/13/21 2110: Whole Bld Glucose 149 H 01/13/21 1611: Whole Bld Glucose 167 H 01/13/21 1242: Whole Bld Glucose 119 Assessment and Plan Conclusion 1. Lumbar adjacent segment disease with spondylolisthesis 2. Morbid obesity with BMI of 50.0-59.9, adult 3. Obstructive sleep apnea (adult) (pediatric) 4. BATOOL treated with BiPAP 5. Diabetes mellitus type 2 in obese On Tue 7:57a Jan 12, 2021 ROJELIO ANDERSON wrote Overall, stable medically. Mobilize. 6. Hypertension, essential 7. Hyperlipidemia, mixed 8. Therapeutic opioid induced constipation Improving. Medically stable to be discharged home. Disclaimer This dictation was created using voice recognition software. Phonetic and/or minor grammatical errors may exist. eSign Date and Time Rojelio Anderson MD Verified/Reviewed by 01/14/21 0658 [facility] Progress Note-Physician [facility] PROG.ORTHOon 01-14-2021 PROG.ORTHO [facility] Patient Name: MELISSA ELIAS [address] Date of : [address] [facility] Unit Number: [id number] Progress Note-Ortho Patient Status: ADM IN Attending Doctor: Omari Rabago MD Service Date: 01/14/21 0859 Progress Note - Ortho Subjective S: (2 ROS minimum) No new complaints overnight. Ongoing back pain. Does have some mild abdominal discomfort this morning however he says it comes and goes. Is moving bowels, passing flatus. Objective Nursing Vitals Vital Signs (Last) Result Date Time Pulse Ox 95 01/15 720 B/P 176/49 01/15 720 Temp 98.1 01/15 720 Pulse 87 01/14 07 Resp 18 01/14 07 FiO2 21 01/11 0155 O2 Delivery BIPAP 01/09 0329 O2 Flow Rate 3 01/08 0807 General Appearance Awake alert, pleasant, no acute distress. Physical Exam Cardiovascular - Heart is regular rate by radial pulse. Respiratory - nonlabored, regular, even. Musculoskeletal - Dressing is intact his back. Does have some drainage toward the midportion of the dressing. Neurologic - Patient is alert and appropriate. Diagnostic Data Lab 24hr (CBC/BMP [facility]) 01/14/21 0615: Whole Bld Glucose 153 H 01/13/21 2110: Whole Bld Glucose 149 H 01/13/21 1611: Whole Bld Glucose 167 H 01/13/21 1242: Whole Bld Glucose 119 Assessment/Plan Conclusion 1. Lumbar adjacent segment disease with spondylolisthesis Status post L2-3 transforaminal lumbar interbody fusion with intervertebral body device, T10-L3 posterior spinal fusion, L5-S1 posterior spinal fusion, exploration of fusion at L5 -S1, partial removal of L3-S1 and pelvic posterior instrumentation with 3 instrumentation T10-S1 with bilateral pelvic region patient, L2-3 david osteotomy, local bone grafting, allograft and BMP on 01/07/2021. Postop day #7: Vitals stable, afebrile. Is having stools, passing flatus. He is taking stool softeners and MiraLAX twice daily at home as a baseline. Also taking these and laxatives here. Spoke with him at length regarding continuation of this especially while he is on pain medication. Encouraged ambulation, lumbar spine precautions. DVT prophylaxis with SCDs, ambulation. Lovenox to resume today. Prescription for 2 weeks in his chart. If drainage increases/bleeding increases from his incision once he is home, patient was instructed to stop this. Discussed with Dr. Rabago today. We will plan for discharge home today. Also spoke with Dr. Anderson regarding this, okay from his standpoint as well. Follow-up with Dr. Rabago as scheduled on 01/22/2021 at 1:15 PM 2. Therapeutic opioid induced constipation Stable Problems Problems not specifically addressed in the above plan are stable and do not warrant adjustment of the current method of therapy. Collaborating Physician Omari Rabago MD Physician Attestation Statement of Attestation I confirm that I have evaluated the patient, reviewed the history and physical, medications, diagnostic results, physical exam, assessment and plan of care of the patient. Disclaimer This dictation was created using voice recognition software. Phonetic and/or minor grammatical errors may exist. eSign Date and Time Palmira Lewis WATER REUSE PROGRAM MANAGER Verified/Reviewed by 01/14/21 0903 [facility] Progress Note-Ortho [facility] PTPNon 01-14-2021 PT Progress Note [facility] PTPN Physical Therapy Inpatient Missed Visit Note Attempted to visit patient for therapy, but was unable for the following reasons: Patient discharged before evaluation or treatment Return Plan: Not applicable. If there are any questions regarding this service, please contact the Acute Therapy Department at extension [phone] Services: Total Billed: 0 minutes (Timed: 0, Untimed: 0) 0.00 Untimed: [] PT Treatment- General ORDER Signed by: Debbie Lerma, VICE PRESIDENT LENDING 01/14/2021 15:06:18 - CoSigned By: Kayli Arnold, PT 01/14/2021 3:27:22 PM [facility] PATIENT NAME: MELISSA ELIAS [address] MEDICAL REC #: [id number] [place] [id number] ADMIT DATE: 01/09/21 SERVICE DATE: 01/14/21 Physical Therapy Progress Note ATTENDING PHY: Omari Rabago MD Normal [facility] GLUCOSE METERon 01-13-2021 Glucose [Mass/Vol] 149 mg/dL High 85-125 [facility] Glucose [Mass/Vol] 167 mg/dL High 85-125 [facility] Glucose [Mass/Vol] 119 mg/dL Normal 85-125 [facility] Glucose [Mass/Vol] 148 mg/dL High 85-125 [facility] Glucose [Mass/Vol] 146 mg/dL High 85-125 [facility] OTPNon 01-13-2021 OT Progress Note Normal [facility] OTPN Occupational Therapy Inpatient Treatment Note Medical Diagnosis: s/p L2-3 TLIF, T10-L3 PLIF, L5-S1 PLIF, with partial removal L3-S1 and pelvic posterior instrumentation with reinstrumentation T10-S1 and L2-[address] david [address] performed by Dr[address] Rabago on 01/08/21 OCCUPATIONAL PROFILE AND HISTORY Demographics: Age: 55Y Gender: Male Primary Language: German Preferred Language: German Referring Service/Team: Medicine Rehabilitation Precautions/Restrictions: Spinal precautions, log roll Patient Report: pt was pleasant and agreeable feeling okay today, Dr said I could go home today Patient/Caregiver Goals: To get stronger Pain: Patient currently has pain. Patient reports a pain level of 8 out of 10. Interventions: Repositioned patient. OBJECTIVE / OCCUPATIONAL PERFORMANCE General Observation: Pt in chair upon arrival Activities of Daily Living: Current Status Previous Status ADLs Feeding - Independent Grooming - Supervision Bathing-UE - Supervision Bathing-LE - Maximal assistance Dressing-UE - Supervision Dressing-LE - Minimal assistance Toileting - Maximal assistance AM-PAC Daily Activities: Putting On/Taking Off Lower Body Clothing: A little help needed Bathing:: A lot of help needed Toileting: A lot of help needed Putting On/Taking Off Upper Body Clothing: A little help needed Grooming: A little help needed [facility] PATIENT NAME: MELISSA ELIAS [address] [place] MEDICAL REC #: [id number] [place] [address] ADMIT DATE: 01/09/21 SERVICE DATE: 01/13/21 Occupational Therapy Progress Note ATTENDING PHY: Omari Rabago MD Eating a Meal: No help needed Raw Score = 17 , AM-PAC t-Scale Score = 37.26 and G-Code Modifier = CK Functional Mobility: Bed Mobility: Not assessed. Transfers: Patient transferred sit to/from stand requiring minimal assistance of 1 person. Patient used the following equipment: Arms of chair. Locomotion/Gait/Ambulatio n: Patient was supervision with gait/ambulation for 20 ft x 2 . Patient requires the following assistive device(s): Rolling walker. pt had slow, decreased step length Interventions: Therapeutic Exercise: pt completed B UE ther ex to increase B UE strength for improved ADLs and transfers , Shoulder flex/ext, horiz abb/add, internal/ext rotation. elbow flex/ext 8 sets x 12 Self Care/Home Management: pt ed on WW safety amd hand placement on sit to stand transfers, pt sit to stand to WW, functional mobility in room. Pt standing x 2-3 minutes at Supv level with no overt LoB noted. Pt did require Min VC's for hand placement for sit to stand safety. PoC ed Pain Reassessment: No significant change in pain during session. Education: Education Provided: Plan of care. Safety issues and interventions. Use of adaptive devices. Audience: Patient. Mode: Explanation. Demonstration. Response: Verbalized understanding. Needs practice. Needs reinforcement. ASSESSMENT Response to Visit: Pt tolerated well, pt continues to make small improvements but limited by pain. Pt demos fair overall strengths and static standing balance. Pt demos fair overall standing tolerance but does fatigue with extended standing. Pt continues to require heavy assistance for LE self care, and requires close hands on assist. Pt recommended to rehab. Activity/Participation Problem List and Goals: No updates at this time. Progress Toward Goals: TREATMENT GOAL REVIEW: 1. Complete toilet transfers and tasks with Mod I and good safety awareness. - Not Met: ongoing 2. Complete LB ADLs with Mod I, safe spinal precautions and use of LB as needed. - Not Met ongoing 3. Demo ability to stand for 3-5 minutes with Good balance and UE support [facility] PATIENT NAME: MELISSA ELIAS [facility] [address] MEDICAL REC #: [id number] [place] [address] ADMIT DATE: 01/09/21 SERVICE DATE: 01/13/21 Occupational Therapy Progress Note ATTENDING PHY: Omari Rabago MD as needed as a precursor for safe ADL/IADL management upon homegoing. - Not Met ongoing 4. Complete household functional mobility with Mod I using LRD as needed with safe activity pacing to decrease risk for falls. - Not Met ongoing Time frame to achieve treatment goal(s): 2 weeks PLAN Treatment Frequency, Duration and Interventions: Continue Occupational Therapy to achieve goals per previously established Plan of Care. : Occupational Therapy is recommended for 6x/week x 2 weeks Occupational Therapy treatment is to include: therapeutic exercise, therapeutic activity, graded ADLs/IADLs, patient/family education, energy conservation, safety with AD/AE, discharge planning Recommended Occupational Therapy Follow Up: Upon acute care discharge, the following is currently rec (more content not included)... Normal [facility] PROG.NOTEon 01-13-2021 PROG.NOTE [facility] Patient Name: MELISSA ELIAS [facility] [address] Date of : [address] [place], [place] [address] Unit Number: [id number] Progress Note-Physician Patient Status: ADM IN Attending Doctor: Omari Rabago MD Service Date: 01/13/21 0649 Subjective S: (2 ROS minimum) Still having lower abdominal pressure. Positive bowel movement and flatus. Objective (ROS) Nursing Vitals Vital Signs (Last) Result Date Time Pulse Ox 93 01/12 2306 B/P 105/57 01/12 2306 Temp 98.6 01/12 2306 Pulse 77 01/12 2306 Resp 18 01/12 2306 FiO2 21 01/11 0155 O2 Delivery BIPAP 01/09 0329 O2 Flow Rate 3 01/08 0807 Physical Exam Neurological / Psychiatric Alert, Orientation X3, Affect Normal Respiratory Decreased breath sounds but no wheezes, rales, rhonchi. Cardiovascular Heart RRR Gastrointestinal Normal Bowel Sounds, Voluntary guarding. Diagnostic Data: Lab 24hr (CBC/BMP Fishbone) 01/13/21 0520: Whole Bld Glucose 148 H 01/12/21 2232: Whole Bld Glucose 146 H 01/12/21 1628: Whole Bld Glucose 134 H 01/12/21 1054: Whole Bld Glucose 118 Assessment and Plan Conclusion 1. Lumbar adjacent segment disease with spondylolisthesis 2. Morbid obesity with BMI of 50.0-59.9, adult 3. Obstructive sleep apnea (adult) (pediatric) 4. BATOOL treated with BiPAP 5. Diabetes mellitus type 2 in obese On Mon 7:57a Jan 12, 2021 ROJELIO ANDERSON wrote Overall, stable medically. Mobilize. 6. Hypertension, essential 7. Hyperlipidemia, mixed 8. Therapeutic opioid induced constipation As he is having bowel movements and flatus, will try an enema. Continue increasing physical activity. Disclaimer This dictation was created using voice recognition software. Phonetic and/or minor grammatical errors may exist. eSign Date and Time Rojelio Anderson MD Verified/Reviewed by 01/13/21 0651 [facility] Progress Note-Physician [facility] PROG.ORTHOon 01-13-2021 PROG.ORTHO [facility] Patient Name: MELISSA ELIAS [address] Date of : [address] [place] [address] Unit Number: [id number] Progress Note-Ortho Patient Status: ADM IN Attending Doctor: Omari Rabago MD Service Date: 01/13/21 1701 Progress Note - Ortho Subjective S: (2 ROS minimum) doing much better. no complaints. Objective Physical Exam stable exam Assessment/Plan Conclusion 1. Lumbar adjacent segment disease with spondylolisthesis -restart Lovenox tomorrow; will hold again if drainage starts -plan for discharge home tomorrow On Sun 2:42p Jan 11, 2021 OMARI RABAGO wrote POD#4 [id number] -pain better -hold Lovenox -change dressing now and prn On Sat 12:47p Jan 10, 2021 OMARI RABAGO wrote POD#3 [id number] -start Toradol, gabapentin, IV dilaudid -continue po dilaudid -BiPAP -Lovenox On Fri 5:05p Jan 09, 2021 OMARI RABAGO wrote POD#2 [id number] -monitor bowel function -BiPAP -Blood sugars improved -Lovenox started -Monitor HVAC On Cora 6:50a Jan 08, 2021 OMARI RABAGO wrote POD#1 [id number], L2-3 Ponted osteotomy and TLIF -Pain control. Continue dilaudid at this time. -BiPAP -Blood sugars elevated -Plan to start Lovenox tomorrow -Monitor HVAC -Anticipate >3 nights hospitalization Disclaimer This dictation was created using voice recognition software. Phonetic and/or minor grammatical errors may exist. eSign Date and Time Omari Rabago MD Verified/Reviewed by 01/13/21 1703 [facility] Progress Note-Ortho [facility] PROG.[facility] Patient Name: MELISSA ELIAS [address] Date of : [address] [place] [address] Unit Number: [id number] Progress Note-Ortho Patient Status: ADM IN Attending Doctor: Omari Rabago MD Service Date: 01/13/21 4911 Progress Note - Ortho Subjective S: (2 ROS minimum) Patient does complain of abdominal distention, discomfort especially lower abdomen. He reports that he is going to get an enema soon. Otherwise, he says his back pain is under better control than it was yesterday. No new symptoms in that regard. Objective Nursing Vitals Vital Signs (Last) Result Date Time Pulse Ox 93 01/12 2306 B/P 105/57 01/12 2306 Temp 98.6 01/12 2306 Pulse 77 01/12 2306 Resp 18 01/12 2306 FiO2 21 01/11 0155 O2 Delivery BIPAP 01/09 0329 O2 Flow Rate 3 01/08 0807 General Appearance Awake, sitting up in a chair. Physical Exam Cardiovascular - Heart is regular rate by radial pulse. Respiratory - nonlabored, regular, even. GI: Abdomen large, distended, mildly tender. Musculoskeletal - Dressing is intact to his back. No new or progressive motor or sensory deficits. Neurologic - Patient is alert and appropriate. Diagnostic Data Lab 24hr (CBC/BMP Fishbone) 01/13/21 0520: Whole Bld Glucose 148 H 01/12/21 2232: Whole Bld Glucose 146 H 01/12/21 1628: Whole Bld Glucose 134 H 01/12/21 1054: Whole Bld Glucose 118 Assessment/Plan Conclusion 1. Lumbar adjacent segment disease with spondylolisthesis Status post L2-3 transforaminal lumbar interbody fusion with intervertebral body device, T10-L3 posterior spinal fusion, L5-S1 posterior spinal fusion, exploration of fusion at L5 -S1, partial removal of L3-S1 and pelvic posterior instrumentation with 3 instrumentation T10-S1 with bilateral pelvic region patient, L2-3 david osteotomy, local bone grafting, allograft and BMP on 01/07/2021. Postop day #6: Vitals stable, afebrile. Back pain better today. He is complaining of abdominal distention. Is to get an enema, ordered by Dr. Anderson. He is passing flatus, having stools however he remains distended and uncomfortable. PT/OT, lumbar spine precautions. Encourage ambulation. DVT prophylaxis with SCDs, ambulation. Lovenox remains on hold. Will update Dr. Rabago today. 2. Therapeutic opioid induced constipation Stable Problems Problems not specifically addressed in the above plan are stable and do not warrant adjustment of the current method of therapy. Collaborating Physician Omari Rabago MD Physician Attestation Statement of Attestation I confirm that I have evaluated the patient, reviewed the history and physical, medications, diagnostic results, physical exam, assessment and plan of care of the patient. Disclaimer This dictation was created using voice recognition software. Phonetic and/or minor grammatical errors may exist. eSign Date and Time Palmira Lewis W[employer] REUSE PROGRAM MANAGER Verified/Reviewed by 01/13/21 0753 Normal [facility] Progress Note-Ortho Normal [facility] PTPNon 01-13-2021 PT Progress Note Normal [facility] PTPN Physical Therapy Inpatient Treatment Note Medical Diagnosis: s/p L2-3 TLIF, T10-L3 PLIF, L5-S1 PLIF, with partial removal L3-S1 and pelvic posterior instrumentation with reinstrumentation T10-S1 and L2-[address] david [address] Dr[address] Rabago on 01/08/21 Demographics: Age: 55Y Gender: Male Primary Language: German Preferred Language: German Rehabilitation Precautions/Restrictions: Spinal precautions, log roll SUBJECTIVE Patient Report: I feel a little weaker today Patient/Caregiver Goals: To get stronger Pain: Patient currently has pain. Patient reports a pain level of 6 out of 10. Interventions: Repositioned patient. OBJECTIVE General Observation: Patient up in chair upon arrival, agreeable to participating w/ therapy. Functional Activities After Today's Session: Transfers: Patient transferred sit to/from stand requiring contact guard assistance of 1 person. Patient used the following equipment: Arms of chair. Cues for proper hand placement Locomotion/Ambulation: Patient was stand by assist with gait/ambulation for 150 feet x 2 . Patient requires the following assistive device(s): Rolling walker. x 1 prolonged seated rest break required between amb bouts d/t fatigue, slow umm, decreased step length. Stairs: Not assessed. Curb Negotiation: Not assessed. AM-PAC Basic Mobility: Turning Over in Bed: A lot of difficulty Sitting/Standing Chair with Arms: A little difficulty Lying on Back to Sitting on Side of Bed: A lot of difficulty Moving To/From Bed to Chair: A little help needed Walking in Hospital Room: A little help needed Climbing 3-5 Steps with Railing: A little help needed Raw Score = 16 , AM-PAC t-Scale Score = 40.78 and G-Code Modifier = CK Vital Signs: Not assessed. [facility] PATIENT NAME: MELISSA ELIAS [address] [facility] [address] MEDICAL REC #: [id number] [place] [address] ADMIT DATE: 01/09/21 SERVICE DATE: 01/13/21 Physical Therapy Progress Note ATTENDING PHY: Omari Rabago MD Interventions: Gait Training: Functional transfer training, education on proper transfer techniques, review of precautions, standing balance w/ WW, gait training w/ WW, safety awareness, education on PoC and d/c planning, education on importance of mobility for improved overall wellbeing, seated bilat LE thex x 15 reps ea: heel/toe raises, LAQ, GS. Pain Reassessment: No significant change in pain during session. Education: Education Provided: Precautions. Plan of care. Pain management. Functional transfers. Safety. Equipment. Gait. Home exercise/activity plan. Audience: Patient. Mode: Explanation. Demonstration. Response: Demonstrated skill. Needs practice. Needs reinforcement. ASSESSMENT Response to Visit: Patient responded fair/well to today's visit. Patient continues to demo deficits in overall strength, mobility and activity tolerance. Continue to recommend inpatient therapy services at least 60 minutes upon d/c. Activity/Participation Problem List and Goals: No updates at this time. Progress Toward Goals: TREATMENT GOAL REVIEW: 1. Complete 80 feet supv ww - Not Met: Ongoing 2. Complete transfers supv - Not Met Ongoing 3. Complete verbalization of HEP indep - Not Met Ongoing 4. Complete 3 steps SBA - Not Met: Ongoing Time frame to achieve treatment goal(s): 2 weeks PLAN Treatment Frequency, Duration and Interventions: Physical Therapy is recommended for BID for three days Physical Therapy treatment is to include: Gait training, transfer training, balance, functional tasks, HEP, thera act, thera exercise, demonstration and performance of stair negotiation, education on home going safety/recommendations, educated on fall risk, education on mobility benefits, educate on ice management, educate on car transfer, and educated on pain control through deep breathing/ice/mobility/el evated and pain medications. Recommended Physical Therapy Follow Up: Upon acute care discharge, the following is currently recommended: Inpatient Physical Therapy, AT LEAST 60 minutes per day. Patient would tolerate and benefit from multidisciplinary inpatient rehabilitation with an intensity of 3 hours/day, 5 days/week. Recommended Equipment: None issued this visit. Recommended Consults: None currently. Development of Plan of Care: There was no change to plan of care today. [facility] PATIENT NAME: MELISSA ELIAS Dr[address] MEDICAL REC #: [id number] [place] [address] ADMIT DATE: 01/09/21 SERVICE DATE: 01/13/21 Physical Therapy Progress Note ATTENDING PHY: Omari Rabago MD If there are any questions regarding this service, please contact the Acute Therapy Department at extension [phone] Location of Patient at End of Therapy Session: (more content not included)... Normal [facility] PT Progress Note Normal [facility] PTPN Physical Therapy Inpatient Missed Visit Note Attempted to visit patient for therapy, but was unable for the following reasons: Patient refused treatment. I'm trying to get my bowels moving a little more. They gave me an enema and miralax. Can you come back in a little bit? Return Plan: Will return as soon as possible for another attempt. If there are any questions regarding this service, please contact the Acute Therapy Department at extension [phone] Signed by: Debbie Lerma, VICE PRESIDENT LENDING 01/13/2021 09:11:43 - CoSigned By: JANNETH HAJI PT 01/13/2021 1:03:50 PM [facility] PATIENT NAME: MELISSA ELIAS [address] MEDICAL REC #: [id number] [place] [address] ADMIT DATE: 01/09/21 SERVICE DATE: 01/13/21 Physical Therapy Progress Note ATTENDING PHY: Omari Rabago MD Normal [facility] CBC W/DIFFon 01-12-2021 BASO ABS 0.10 K/CU MM Normal 0-0.2 [facility] Comment on above: Order Comment: Campu s: M Performed By: #### L 500.27514, L500.14241, L500.36870, L500.63415 #### [facility] [address] [place] [address] Basophils/100 WBC (Bld) 0.6 % Normal 0-2 [facility] Comment on above: Order Comment: Campu s: M Performed By: #### L 500.23268, L500.85950, L500.65091, L500.56761 #### [facility] [address] [place] [address] EOS ABS 0.20 K/CU MM Normal 0-0.5 [facility] Comment on above: Order Comment: Campu s: M Performed By: #### L 500.84971, L500.66249, L500.19883, L500.79159 #### [facility] [address] [place] [address] Eosinophils/100 WBC (Bld) 2.1 % Normal 0-5 [facility] Comment on above: Order Comment: Campu s: M Performed By: #### L 500.33720, L500.11372, L500.91285, L500.50210 #### [facility] [address] [place] [address] Erythrocyte distribution width (RBC) [Ratio] 14.8 % High 11-14.5 [facility] Comment on above: Order Comment: Campu s: M Performed By: #### L 500.48604, L500.37911, L500.66260, L500.32743 #### [facility] [address] [place] [address] Hematocrit (Bld) [Volume fraction] 29.0 % Low 41.0-53.0 [facility] Comment on above: Order Comment: Campu s: M Performed By: #### L 500.69945, L500.90074, L500.04941, L500.58408 #### [facility] [address] [place] [address] Hemoglobin (Bld) [Mass/Vol] 9.1 g/dL Low 13.5-17.5 [facility] Comment on above: Order Comment: Campu s: M Performed By: #### L 500.82526, L500.63769, L500.20692, L500.72239 #### [facility] [address] [place] [address] IMMATR GRAN ABS 0.20 K/CU MM Normal Less than 2 [facility] Comment on above: Order Comment: Campu s: M Performed By: #### L 500.22734, L500.00137, L500.78843, L500.96597 #### [facility] [address] [place] [address] IMMATURE GRAN % 2.6 % Normal Less than 2 [facility] Comment on above: Order Comment: Campu s: M Performed By: #### L 500.92945, L500.05912, L500.49434, L500.18818 #### [facility] [address] [place] [address] LYMPH ABS 2.50 K/CU MM Normal 0.9-4.4 [facility] Comment on above: Order Comment: Campu s: M Performed By: #### L 500.78497, L500.86715, L500.96649, L500.22108 #### [facility] [address] [place] [address] Lymphocytes/100 WBC (Bld) 32.2 % Normal 20-40 [facility] Comment on above: Order Comment: Campu s: M Performed By: #### L 500.79195, L500.11342, L500.91967, L500.75988 #### [facility] [address] [place] [address] MCHC (RBC) [Mass/Vol] 31.4 g/dL Low 32.0-36.0 [facility] Comment on above: Order Comment: Campu s: M Performed By: #### L 500.38414, L500.38575, L500.47758, L500.20076 #### [facility] [address] [place] [address] MCV (RBC) [Entitic vol] 92.4 fL Normal 80.0-99.0 [facility] Comment on above: Order Comment: Campu s: M Performed By: #### L 500.68569, L500.31987, L500.00366, L500.12285 #### [facility] [address] [place] [address] MONO ABS 0.80 K/CU MM Normal 0.1-1.1 [facility] Comment on above: Order Comment: Campu s: M Performed By: #### L 500.08811, L500.60750, L500.21534, L500.62035 #### [facility] [address] [place] [address] Monocytes/100 WBC (Bld) 10.7 % High 2-10 [facility] Comment on above: Order Comment: Campu s: M Performed By: #### L 500.08897, L500.00300, L500.13423, L500.63162 #### [facility] [address] [place] [address] NEUTROPHIL ABS 4.00 K/CU MM Normal 2.0-8.3 [facility] Comment on above: Order Comment: Campu s: M Performed By: #### L 500.26188, L500.52048, L500.95828, L500.74087 #### [facility] [address] [place] [address] Neutrophils/100 WBC (Bld) 51.8 % Normal 45-75 [facility] Comment on above: Order Comment: Campu s: M Performed By: #### L 500.39949, L500.21525, L500.16906, L500.91227 #### [facility] [address] [place] [address] Nucleated RBC/100 WBC (Bld) [Ratio] 0.0 % Normal Less than 1 [facility] Comment on above: Order Comment: Campu s: M Performed By: #### L 500.84998, L500.41549, L500.64421, L500.48728 #### [facility] [address] [place] [address] Platelet mean volume (Bld) [Entitic vol] 9.9 fL Normal 9.4-12.4 [facility] Comment on above: Order Comment: Campu s: M Performed By: #### L 500.64082, L500.12599, L500.49979, L500.32115 #### [facility] [address] [place] [address] PLT 225 K/CU MM Normal 150-450 [facility] Comment on above: Order Comment: Campu s: M Performed By: #### L 500.17775, L500.46883, L500.24976, L500.46509 #### [facility] [address] [place] [address] RBC 3.14 M/CU MM Low 4.50-6.00 [facility] Comment on above: Order Comment: Campu s: M Performed By: #### L 500.77231, L500.60061, L500.15226, L500.87618 #### [facility] [address] [place] [address] WBC 7.8 K/CUMM Normal 4.5-11.0 [facility] Comment on above: Order Comment: Campu s: M Performed By: #### L 500.88446, L500.18347, L500.82894, L500.75095 #### [facility] [address] [place] [address] CMPon 01-12-2021 Albumin [Mass/Vol] 2.8 g/dL Low 3.2-5.0 [facility] Comment on above: Order Comment: Campu s: M Performed By: #### L 550.92406, L500.09848, L500.74157 ####[facility] [id number] [place], [place] [address]Oj# [phone] Albumin/Globulin [Mass ratio] 0.8 {ratio} Normal 0.8-2.0 [facility] Comment on above: Order Comment: Campu s: M Performed By: #### L 550.40862, L500.91996, L500.64474 ####[facility] [id number] [place], [place] [address]Lq# [phone] ALK PHOS 69 U/L Normal 45-117 [facility] Comment on above: Order Comment: Campu s: M Performed By: #### L 550.07637, L500.52089, L500.17152 ####[facility] [id number] [place], [place] [address]Np# [phone] ALT [Catalytic activity/Vol] 102 U/L High 13-61 [facility] Comment on above: Order Comment: Campu s: M Result Comment: RESU LTS MAY BE FALSELY DEPRESSED AFTER THE ADMINISTRATION OF SULFASALAZINE AND/OR SULFAPYRIDINE. Performed By: #### L 550.99626, L500.20483, L500.12053 ####[facility] [id number] [place], [place] [address]Kr# [phone] Anion gap [Moles/Vol] 6 mmol/L Normal 5-16 [facility] Comment on above: Order Comment: Campu s: M Performed By: #### L 550.05543, L500.32301, L500.72307 ####[facility] [id number] [place], [place] [address]Ji# [phone] AST [Catalytic activity/Vol] 99 U/L High 8-34 [facility] Comment on above: Order Comment: Campu s: M Result Comment: RESU LTS MAY BE FALSELY DEPRESSED AFTER THE ADMINISTRATION OF SULFASALAZINE AND/OR SULFAPYRIDINE. Performed By: #### L 550.17948, L500.88439, L500.44339 ####[facility] [id number] [place], [place] [address]Tc# [phone] BILI TOTAL 0.60 MG/DL Normal 0.2-1.0 [facility] Comment on above: Order Comment: Campu s: M Performed By: #### L 550.72772, L500.52807, L500.93881 ####[facility] [id number] [place], [place] [address]Vn# [phone] Calcium [Mass/Vol] 8.7 mg/dL Normal 8.5-10.5 [facility] Comment on above: Order Comment: Campu s: M Result Comment: NOTE NEW NORMAL RANGE DUE TO REAGENT CHANGE Performed By: #### L 550.89024, L500.05085, L500.39279 ####[facility] [id number] [place], [place] [address]Ee# [phone] Chloride [Moles/Vol] 105 mmol/L Normal 98-107 [facility] Comment on above: Order Comment: Campu s: M Performed By: #### L 550.91012, L500.82102, L500.60754 ####[facility] [id number] [place], [place] [address]Dr# [phone] CO2 [Moles/Vol] 28.0 mmol/L Normal 21-32 [facility] Comment on above: Order Comment: Campu s: M Performed By: #### L 550.23368, L500.92094, L500.17929 ####[facility] [id number] [place], [place] [address]Bn# [phone] Creatinine [Mass/Vol] 0.75 mg/dL Normal 0.5-1.4 [facility] Comment on above: Order Comment: Campu s: M Result Comment: NOTE NEW NORMAL RANGE DUE TO REAGENT CHANGE Patients receiving either N-Acetylcysteine (NAC) or Metamizole prior to venipuncture, may have falsely depressed results. Performed By: #### L 550.34210, L500.51108, L500.54961 ####[facility] [id number] [place], [place] [address]Yr# [phone] Globulin (S) [Mass/Vol] 3.3 g/dL Normal 2.2-4.2 [facility] Comment on above: Order Comment: Campu s: M Performed By: #### L 550.46819, L500.29934, L500.58013 ####[facility] [id number] [place], [place] [address]Uc# [phone] Glucose [Mass/Vol] 142 mg/dL High 70-100 [facility] Comment on above: Order Comment: Campu s: M Result Comment: 70-1 00- Normal Fasting; 100-125 Impaired Fasting; greater than 126 on more than one result- Diabetes. ADA guidelines. Results may be falsely elevated after the administration of Sulfapyridine. Results may be falsely depressed after the administration of Sulfasalazine. Performed By: #### L 550.23883, L500.79732, L500.72203 ####[facility] [id number] [place], [place] [address]Fl# [phone] Potassium [Moles/Vol] 4.0 mmol/L Normal 3.5-5.1 [facility] Comment on above: Order Comment: Campu s: M Performed By: #### L 550.70007, L500.53679, L500.45249 ####[facility] [id number] [place], [place] [address]Mm# [phone] Protein [Mass/Vol] 6.1 g/dL Normal 6.0-8.5 [facility] Comment on above: Order Comment: Campu s: M Performed By: #### L 550.04638, L500.50234, L500.17094 ####[facility] [id number] [place], [place] [address]Jq# [phone] Sodium [Moles/Vol] 139 mmol/L Normal 136-145 [facility] Comment on above: Order Comment: Campu s: M Performed By: #### L 550.10528, L500.55554, L500.89396 ####[facility] [id number] [place], [place] [address]Hz# [phone] Urea nitrogen [Mass/Vol] 21 mg/dL Normal 7-26 [facility] Comment on above: Order Comment: Campu s: M Performed By: #### L 550.18547, L500.70664, L500.10290 ####[facility] [id number] [place], [place] [address]En# [phone] Urea nitrogen/Creatinine [Mass ratio] 28 mg/mg High 15-24 [facility] Comment on above: Order Comment: Campu s: M Performed By: #### L 550.11254, L500.28931, L500.40149 ####[facility] [id number] [place], [place] [address]Ey# [phone] GFR ESTon 01-12-2021 IF AMER Greater than [address] [facility] Comment on above: Order Comment: Campu s: M Performed By: #### L 550.67433, L500.78215, L500.76122 ####[facility] [id number] [place], [place] [address]Bq# [phone] IF non-AFR AMER Greater than [address] [facility] Comment on above: Order Comment: Miles s: M Performed By: #### L 550.83405, L500.63222, L500.31512 ####[facility] [id number] [place], [place] [address]Gs# [phone] GLUCOSE METERon 01-12-2021 Glucose [Mass/Vol] 134 mg/dL High 85-125 [facility] Glucose [Mass/Vol] 118 mg/dL Normal 85-125 [facility] Glucose [Mass/Vol] 259 mg/dL High 85-125 [facility] Glucose [Mass/Vol] 148 mg/dL High 85-125 [facility] OTPNon 01-12-2021 OT Progress Note Normal [facility] OTPN Occupational Therapy Inpatient Treatment Note Medical Diagnosis: s/p L2-3 TLIF, T10-L3 PLIF, L5-S1 PLIF, with partial removal L3-S1 and pelvic posterior instrumentation with reinstrumentation T10-S1 and L2-3 david osteotomy performed by Dr. Rabago on 01/08/21 OCCUPATIONAL PROFILE AND HISTORY Demographics: Age: 55Y Gender: Male Primary Language: German Preferred Language: German Referring Service/Team: Medicine Rehabilitation Precautions/Restrictions: Spinal precautions, log roll, hemovac Patient Report: Pt was pleasant and agreeable to therapy. Patient/Caregiver Goals: To get stronger Pain: Patient currently has pain. Patient reports a pain level of 8 out of 10. Interventions: Repositioned patient. OBJECTIVE / OCCUPATIONAL PERFORMANCE General Observation: Pt in bed upon arrival, nsg changing surgical dressings. Activities of Daily Living: Current Status Previous Status ADLs Feeding - Independent Grooming - Supervision Bathing-UE - Supervision Bathing-LE - Maximal assistance Dressing-UE - Supervision Dressing-LE Minimal assistance Moderate assistance Toileting - Maximal assistance AM-PAC Daily Activities: Putting On/Taking Off Lower Body Clothing: A little help needed Bathing:: A lot of help needed Toileting: A lot of help needed Putting On/Taking Off Upper Body Clothing: A little help needed Grooming: A little help needed Eating a Meal: No help needed Raw Score = 17 , AM-PAC t-Scale Score = 37.26 and G-Code Modifier = CK Functional Mobility: [facility] PATIENT NAME: MELISSA ELIAS [address] MEDICAL REC #: [id number] [place] [address] ADMIT DATE: 01/09/21 SERVICE DATE: 01/12/21 Occupational Therapy Progress Note ATTENDING PHY: Omari Rabago MD Bed Mobility: All bed mobility including supine to sit, rolling, scooting. requiring moderate assistance. Transfers: Patient transferred sit to/from stand requiring contact guard assistance of 1 person. Locomotion/Gait/Ambulatio n: Patient was stand by assist with gait/ambulation for 125 ft x2 . Patient requires the following assistive device(s): Rolling walker. slow, decreased step length Interventions: Self Care/Home Management: Pt log rolling and spinal precaution ed. Pt supine to EoB. Pt sitting at Supv level. WW safety and AE ed. Pt donned LE clothing using filtration operator, pt was able to manage clothing over hips. Pt functional mobility to rehab gym, assisted PT w/ pt step negotiation, pt dynamic standing balance tasks x 2-3 minutes x 2 at Min A level. PoC ed. Pain Reassessment: No significant change in pain during session. Education: Education Provided: Precautions. Safety issues and interventions. Use of adaptive devices. Activities of daily living. Bed mobility. Functional transfers. Audience: Patient. Mode: Explanation. Demonstration. Response: Needs practice. Needs reinforcement. Verbalized understanding. Applied knowledge. ASSESSMENT Response to Visit: Pt tolerated well, Pt demos small improvements today w/ standing tolerance/balance. Pt demos fair overall strength and static standing balance, poor dynamic standing balance and fatigues w/ extended activity, however is improving. Pt continues to require assistance for LE self care and is a fall risk, pt is recommended for Rehab. Pt is currently refusing placement, next best option is home w/ home OT. Activity/Participation Problem List and Goals: No updates at this time. Progress Toward Goals: TREATMENT GOAL REVIEW: 1. Complete toilet transfers and tasks with Mod I and good safety awareness. - Not Met: Ongoing 2. Complete LB ADLs with Mod I, safe spinal precautions and use of LB as needed. - Not Met Ongoing 3. Demo ability to stand for 3-5 minutes with Good balance and UE support as needed as a precursor for safe ADL/IADL management upon homegoing. - Not Met Ongoing 4. Complete household functional mobility with Mod I using LRD as needed [facility] PATIENT NAME: MELISSA ELIAS [address] [place] [address] Dr. [address] MEDICAL REC #: [id number] [place] [address] ADMIT DATE: 01/09/21 SERVICE DATE: 01/12/21 Occupational Therapy Progress Note ATTENDING PHY: Omari Rabago MD with safe activity pacing to decrease risk for falls. - Not Met Ongoing Time frame to achieve treatment goal(s): 2 weeks PLAN Treatment Frequency, Duration and Interventions: Continue Occupational Therapy to achieve goals per previously established Plan of Care. : Occupational Therapy is recommended for 6x/week x 2 weeks Occupational Therapy treatment is to include: therapeutic exercise, therapeutic activity, graded ADLs/IADLs, patient/family education, energy conservation, safety with AD/AE, discharge planning Recommended Occupational (more content not included)... Normal [facility] PREALBon 01-12-2021 PREALB 16 MG/DL Low 20-40 [facility] Comment on above: Order Comment: Miles ocampo: Jessica Performed By: #### L 550.46075, L500.96991, L500.84955 ####[facility] [id number] [place], [place] [address]Cn# [phone] PROG.NOTEon 01-12-2021 PROG.NOTE [facility]: [facility] Date of : [address] [place] [place] [id number] Unit Number: [id number] Progress Note-Physician Patient Status: ADM IN Attending Doctor: Omari Rabago MD Service Date: 01/12/21 0756 Subjective S: (2 ROS minimum) Events noted. Positive flatus and bowel movement. Objective (ROS) Nursing Vitals Vital Signs (Last) Result Date Time B/P 136/50 01/12 0426 Pulse Ox 93 01/11 2305 Temp 98.7 01/11 2305 Pulse 88 01/11 2305 Resp 20 01/11 2305 FiO2 21 01/11 0155 O2 Delivery BIPAP 01/09 0329 O2 Flow Rate 3 01/08 0807 Physical Exam Neurological / Psychiatric Alert, Orientation X3, Affect Normal Respiratory Decreased breath sounds but no wheezes, rales, rhonchi. Cardiovascular Distant heart sounds. No gallops or murmurs heard at the present time. Gastrointestinal Bowel sounds heard.Nontender. Diagnostic Data: Lab 24hr (CBC/BMP [facility]) 01/12/21 0551: Whole Bld Glucose 148 H 01/12/21 0449: [Embedded Image Not Available] Anion Gap 6, Est GFR ( Amer) Greater than 60, Est GFR (Non-Af Amer) Greater than 60 , BUN/Creatinine Ratio 28 H, Glucose 142 H, Total Calcium 8.7, Total Bilirubin 0.60, AST 99 H, ALT 102 H, Alkaline Phosphatase 69, Serum Total Protein 6.1, Albumin 2.8 L, Globulin 3.3, Albumin/Globulin Ratio 0.8, Prealbumin 16 L, RBC 3.14 L, MCV 92.4, MCHC 31.4 L, RDW 14.8 H, MPV 9.9, Immature Gran % (Auto) 2.6, Abs Immat Gran (auto) 0.20, Seg Neutrophils % 51.8, Lymphocytes % 32.2, Monocytes % 10.7 H, Eosinophils % 2.1, Basophils % 0.6, Neutrophils # 4.00, Lymphocytes # 2.50, Monocytes # 0.80, Eosinophils # 0.20, Basophils # 0.10, Nucleated RBCs 0.0 01/11/21 2104: Whole Bld Glucose 127 H 01/11/21 1611: Whole Bld Glucose 152 H 01/11/21 1053: Whole Bld Glucose 174 H Assessment and Plan Conclusion 1. Lumbar adjacent segment disease with spondylolisthesis 2. Morbid obesity with BMI of 50.0-59.9, adult 3. Obstructive sleep apnea (adult) (pediatric) 4. BATOOL treated with BiPAP 5. Diabetes mellitus type 2 in obese Overall, stable medically. Mobilize. 6. Acute kidney injury Disclaimer This dictation was created using voice recognition software. Phonetic and/or minor grammatical errors may exist. eSign Date and Time Rojelio Anderson MD Verified/Reviewed by 01/12/21 0757 [facility] Progress Note-Physician [facility] PROG.ORTHOon 01-12-2021 PROG.[facility] Patient Name: MELISSA ELIAS [address] Date of : [address] [place], [place] [address] Unit Number: [id number] Progress Note-Ortho Patient Status: ADM IN Attending Doctor: Omari Rabago MD Service Date: 01/12/21820 Progress Note - Ortho Subjective S: (2 ROS minimum) No new complaints overnight. Patient did state he had a restless night, did not sleep, increased pain to his back. Otherwise, he is having bowel movements, tolerating diet well. No shortness of breath or chest pain. Objective Nursing Vitals Vital Signs (Last) Result Date Time B/P 136/50 01/12 0426 Pulse Ox 93 01/11 2305 Temp 98.7 01/11 2305 Pulse 88 01/11 2305 Resp 20 01/11 2305 FiO2 21 01/11 0155 O2 Delivery BIPAP 01/09 0329 O2 Flow Rate 3 01/08 0807 General Appearance Awake alert, pleasant, no acute distress. Physical Exam Cardiovascular - Heart is regular rate by radial pulse. Respiratory - nonlabored, regular, even. Musculoskeletal - Dressing is with some serous drainage. Will need new dressing today. No new or progressive motor or sensory deficits. Neurologic - Patient is alert and appropriate. Diagnostic Data Lab 24hr (CBC/BMP [facility]) 01/12/21 0551: Whole Bld Glucose 148 H 01/12/21 0449: [Embedded Image Not Available] Anion Gap 6, Est GFR ( Amer) Greater than 60, Est GFR (Non-Af Amer) Greater than 60 , BUN/Creatinine Ratio 28 H, Glucose 142 H, Total Calcium 8.7, Total Bilirubin 0.60, AST 99 H, ALT 102 H, Alkaline Phosphatase 69, Serum Total Protein 6.1, Albumin 2.8 L, Globulin 3.3, Albumin/Globulin Ratio 0.8, Prealbumin 16 L, RBC 3.14 L, MCV 92.4, MCHC 31.4 L, RDW 14.8 H, MPV 9.9, Immature Gran % (Auto) 2.6, Abs Immat Gran (auto) 0.20, Seg Neutrophils % 51.8, Lymphocytes % 32.2, Monocytes % 10.7 H, Eosinophils % 2.1, Basophils % 0.6, Neutrophils # 4.00, Lymphocytes # 2.50, Monocytes # 0.80, Eosinophils # 0.20, Basophils # 0.10, Nucleated RBCs 0.0 01/11/21 2104: Whole Bld Glucose 127 H 01/11/21 1611: Whole Bld Glucose 152 H 01/11/21 1053: Whole Bld Glucose 174 H Assessment/Plan Conclusion 1. Lumbar adjacent segment disease with spondylolisthesis Status post L2-3 transforaminal lumbar interbody fusion with intervertebral body device, T10-L3 posterior spinal fusion, L5-S1 posterior spinal fusion, exploration of fusion at L5 -S1, partial removal of L3-S1 and pelvic posterior instrumentation with 3 instrumentation T10-S1 with bilateral pelvic region patient, L2-3 david osteotomy, local bone grafting, allograft and BMP on 01/07/2021. Postop day #5: Vitals stable, afebrile. Does complain of back pain that was increased throughout the night, made it hard for him to sleep. Currently, sitting at the edge of the bed, just ate breakfast, is feeling a little better currently. PT/OT, lumbar spine precautions. Change back dressing today. DVT prophylaxis with SCDs, ambulation. Lovenox was held starting yesterday. Will discuss with Dr. Rabago regarding resuming. Will update Dr. Rabago today. Stable Problems Problems not specifically addressed in the above plan are stable and do not warrant adjustment of the current method of therapy. Collaborating Physician Omari Rabago MD Physician Attestation Statement of Attestation I confirm that I have evaluated the patient, reviewed the history and physical, medications, diagnostic results, physical exam, assessment and plan of care of the patient. Disclaimer This dictation was created using voice recognition software. Phonetic and/or minor grammatical errors may exist. eSign Date and Time Palmira Lewis CNP Verified/Reviewed by 01/12/21 0828 [facility] Progress Note-Ortho [facility] PTPNon 01-12-2021 PT Progress Note Normal [facility] PTPN Physical Therapy Inpatient Treatment Note Medical Diagnosis: s/p L2-3 TLIF, T10-L3 PLIF, L5-S1 PLIF, with partial removal L3-S1 and pelvic posterior instrumentation with reinstrumentation T10-S1 and L2-3 david oste[address] performed by Dr. Rabago on 01/08/21 Demographics: Age: 55Y Gender: Male Primary Language: German Preferred Language: German Rehabilitation Precautions/Restrictions: Spinal precautions, log roll, hemovac SUBJECTIVE Patient Report: Srhuthi gave me some pain meds and they are starting to kick in Patient/Caregiver Goals: To get stronger Pain: Patient currently has pain. Patient reports a pain level of 8 out of 10. Interventions: Repositioned patient. OBJECTIVE General Observation: Patient supine in bed upon arrival, agreeable to participating w/ therapy. RN present at beginning of treatment session to change dressing. Functional Activities After Today's Session: Transfers: Bed mobility supine to sit and scooting to edge of bed (EOB) following precautions via log roll w/ Mod A. Patient required max cues/education for proper mobility techniques. Patient w/ good prolonged sitting balance on EOB. Patient transferred sit to stand from EOB and chair x multiple trials w/ CGA for safety. Patient required max cues/education for proper hand placement w/ functional transfers. Locomotion/Ambulation: Patient was contact guard with gait/ambulation of 1 person for 80 feet x 4 . Patient requires the following assistive device(s): Rolling walker. Patient CGA/SBA for safety. Decreased step length, slow umm, slight unsteadiness noted at times, fatigue noted w/ amb. Stairs: Patient was minimal assist of 1 person for up 2 steps/down 3 . Patient used the following equipment: Unilateral Railing. Patient used the following equipment: Straight Cane. Curb Negotiation: Minimal assistance. up/down 1 curb step w/ WW AM-PAC Basic Mobility: Turning Over in Bed: A lot of difficulty Sitting/Standing Chair with Arms: A little difficulty Lying on Back to Sitting on Side of Bed: A lot of difficulty [facility] PATIENT NAME: MELISSA ELIAS [address] [address] MEDICAL REC #: [id number] [place] [address] ADMIT DATE: 01/09/21 SERVICE DATE: 01/12/21 Physical Therapy Progress Note ATTENDING PHY: Omari Rabago MD Moving To/From Bed to Chair: A little help needed Walking in Hospital Room: A little help needed Climbing 3-5 Steps with Railing: A little help needed Raw Score = 16 , AM-PAC t-Scale Score = 40.78 and G-Code Modifier = CK Vital Signs: Not assessed. Interventions: Gait Training: Bed mobility, education on proper mobility techniques via log roll, sitting balance on EOB, functional transfer training x multiple trials, education on proper transfer techniques, standing balance w/ WW, gait training w/ WW, education on WW use/safety, safety awareness, review of precautions, education on PoC and d/c planning, home safety, supervision needs upon d/c, importance of mobility, pain management, stair negotiation, curb step negotiation, car transfer, spine HEP. Pain Reassessment: No significant change in pain during session. Education: Education Provided: Precautions. Pain management. Plan of care. Bed mobility. Functional transfers. Car transfers. Safety. Equipment. Gait. Home exercise/activity plan. Home management activities. Stair/curb/environmental barrier negotiation. Audience: Patient. Mode: Explanation. Demonstration. Printed material provided. Response: Verbalized understanding. Demonstrated skill. Needs practice. Needs reinforcement. ASSESSMENT Response to Visit: Patient responded fair/well to today's visit. Patient continues to require hands on assist w/ all mobility performed at this time and demo's deficits in overall strength, mobility and activity tolerance. Feel as if patient would best benefit from inpatient therapy services at least 60 minutes upon d/c. Spoke to patient in great length this date re: d/c planning. Patient wishing to go home upon d/c despite therapy recommendation. If patient continues to refuse IP Rehab upon d/c, home w/ home PT recommended. Activity/Participation Problem List and Goals: No updates at this time. Progress Toward Goals: TREATMENT GOAL REVIEW: 1. Complete 80 feet supv ww - Not Met: Ongoing 2. Complete transfers supv - Not Met Ongoing 3. Complete verbalization of HEP indep - Not Met Ongoing 4. Complete 3 steps SBA - Not Met: Ongoing Time frame to achieve treatment goal(s): 2 weeks [facility] PATIENT NAME: MELISSA ELIAS [address] [facility] [address] MEDICAL REC #: [id number] [place] [address] ADMIT DATE: 01/09/21 SERVICE DATE: 01/12/21 Physical Therapy Progress Note ATTENDING PHY: Omari Rabago (more content not included)... Normal [facility] CBC W/DIFFon 01-11-2021 BASO ABS 0.00 K/CU MM Normal 0-0.2 [facility] Comment on above: Order Comment: Campu s: M Performed By: #### L 500.58615, L500.97687, L500.89463, L500.09867 #### [facility] [address] [place] [address] Basophils/100 WBC (Bld) 0.4 % Normal 0-2 [facility] Comment on above: Order Comment: Campu s: M Performed By: #### L 500.55924, L500.10492, L500.44651, L500.15730 #### [facility] [address] [place] [address] EOS ABS 0.20 K/CU MM Normal 0-0.5 [facility] Comment on above: Order Comment: Campu s: M Performed By: #### L 500.44268, L500.99096, L500.82577, L500.79408 #### [facility] [address] [place] [address] Eosinophils/100 WBC (Bld) 2.4 % Normal 0-5 [facility] Comment on above: Order Comment: Campu s: M Performed By: #### L 500.34997, L500.23458, L500.61531, L500.33342 #### [facility] [address] [place] [address] Erythrocyte distribution width (RBC) [Ratio] 14.7 % High 11-14.5 [facility] Comment on above: Order Comment: Campu s: M Performed By: #### L 500.42413, L500.32422, L500.06836, L500.15968 #### [facility] [address] [place] [address] Hematocrit (Bld) [Volume fraction] 26.8 % Low 41.0-53.0 [facility] Comment on above: Order Comment: Campu s: M Performed By: #### L 500.53334, L500.52145, L500.78328, L500.29589 #### [facility] [address] [place], [place] [id number] Hemoglobin (Bld) [Mass/Vol] 8.4 g/dL Low 13.5-17.5 [facility] Comment on above: Order Comment: Campu s: M Performed By: #### L 500.30126, L500.61687, L500.54883, L500.84501 #### [facility] [address] [place] [address] IMMATR GRAN ABS 0.10 K/CU MM Normal Less than 2 [facility] Comment on above: Order Comment: Campu s: M Performed By: #### L 500.30347, L500.62705, L500.90869, L500.96037 #### [facility] [address] [place] [address] IMMATURE GRAN % 1.9 % Normal Less than 2 [facility] Comment on above: Order Comment: Campu s: M Performed By: #### L 500.69789, L500.49403, L500.39723, L500.71675 #### [facility] [address] [place] [address] LYMPH ABS 2.30 K/CU MM Normal 0.9-4.4 [facility] Comment on above: Order Comment: Campu s: M Performed By: #### L 500.53878, L500.15188, L500.67571, L500.51148 #### [facility] [address] [place] [address] Lymphocytes/100 WBC (Bld) 31.3 % Normal 20-40 [facility] Comment on above: Order Comment: Campu s: M Performed By: #### L 500.39554, L500.03325, L500.03156, L500.66667 #### [facility] [address] [place] [address] MCHC (RBC) [Mass/Vol] 31.3 g/dL Low 32.0-36.0 [facility] Comment on above: Order Comment: Campu s: M Performed By: #### L 500.34057, L500.84938, L500.59486, L500.49641 #### [facility] [address] [place] [address] MCV (RBC) [Entitic vol] 92.4 fL Normal 80.0-99.0 [facility] Comment on above: Order Comment: Campu s: M Performed By: #### L 500.56754, L500.74975, L500.43193, L500.42252 #### [facility] [address] [place] [address] MONO ABS 0.80 K/CU MM Normal 0.1-1.1 [facility] Comment on above: Order Comment: Campu s: M Performed By: #### L 500.58895, L500.67740, L500.39251, L500.19476 #### [facility] [address] [place] [address] Monocytes/100 WBC (Bld) 11.3 % High 2-10 [facility] Comment on above: Order Comment: Campu s: M Performed By: #### L 500.18193, L500.72054, L500.47066, L500.12316 #### [facility] [address] [place] [address] NEUTROPHIL ABS 3.80 K/CU MM Normal 2.0-8.3 [facility] Comment on above: Order Comment: Campu s: M Performed By: #### L 500.21220, L500.68089, L500.83950, L500.36274 #### [facility] [address] [place] [address] Neutrophils/100 WBC (Bld) 52.7 % Normal 45-75 [facility] Comment on above: Order Comment: Campu s: M Performed By: #### L 500.16674, L500.63598, L500.37209, L500.24325 #### [facility] [address] [place] [address] Nucleated RBC/100 WBC (Bld) [Ratio] 0.0 % Normal Less than 1 [facility] Comment on above: Order Comment: Campu s: M Performed By: #### L 500.56454, L500.27402, L500.73849, L500.18279 #### [facility] [address] [place], [place] [id number] Platelet mean volume (Bld) [Entitic vol] 10.0 fL Normal 9.4-12.4 [facility] Comment on above: Order Comment: Campu s: M Performed By: #### L 500.17783, L500.21614, L500.73293, L500.01956 #### [facility] [address] [place] [address] PLT 177 K/CU MM Normal 150-450 [facility] Comment on above: Order Comment: Campu s: M Performed By: #### L 500.10963, L500.59570, L500.41517, L500.70918 #### [facility] [address] [place] [address] RBC 2.90 M/CU MM Low 4.50-6.00 [facility] Comment on above: Order Comment: Campu s: M Performed By: #### L 500.78836, L500.11183, L500.34631, L500.41424 #### [facility] [address] [place] [address] WBC 7.2 K/CUMM Normal 4.5-11.0 [facility] Comment on above: Order Comment: Campu s: M Performed By: #### L 500.65839, L500.99386, L500.37144, L500.64070 #### [facility] [address] [place], [place] [address] CMPon 01-11-2021 Albumin [Mass/Vol] 2.6 g/dL Low 3.2-5.0 [facility] Comment on above: Order Comment: Campu s: M Performed By: #### L 500.12813, L500.45123 #### [facility] [address] [place], [place] [address] Albumin/Globulin [Mass ratio] 0.8 {ratio} Normal 0.8-2.0 [facility] Comment on above: Order Comment: Campu s: M Performed By: #### L 500.57162, L500.59835 #### [facility] [address] [address] ALK PHOS 65 U/L Normal 45-117 [facility] Comment on above: Order Comment: Campu s: M Performed By: #### L 500.87617, L500.60087 #### [facility] [place] [address] ALT [Catalytic activity/Vol] 120 U/L High 13-61 [facility] Comment on above: Order Comment: Campu s: M Result Comment: RESU LTS MAY BE FALSELY DEPRESSED AFTER THE ADMINISTRATION OF SULFASALAZINE AND/OR SULFAPYRIDINE. Performed By: #### L 500.62232, L500.99182 #### [facility] [place] [address] Anion gap [Moles/Vol] 6 mmol/L Normal 5-16 [facility] Comment on above: Order Comment: Campu s: M Performed By: #### L 500.36457, L500.72269 #### [facility] [place] [address] AST [Catalytic activity/Vol] 129 U/L High 8-34 [facility] Comment on above: Order Comment: Campu s: M Result Comment: RESU LTS MAY BE FALSELY DEPRESSED AFTER THE ADMINISTRATION OF SULFASALAZINE AND/OR SULFAPYRIDINE. Performed By: #### L 500.30170, L500.02659 #### [facility] [address] [place] [address] BILI TOTAL 0.50 MG/DL Normal 0.2-1.0 [facility] Comment on above: Order Comment: Campu s: M Performed By: #### L 500.36645, L500.44670 #### [facility] [address] [place] [address] Calcium [Mass/Vol] 8.2 mg/dL Low 8.5-10.5 [facility] Comment on above: Order Comment: Campu s: M Result Comment: NOTE NEW NORMAL RANGE DUE TO REAGENT CHANGE Performed By: #### L 500.23756, L500.54977 #### [facility] [address] [place] [address] Chloride [Moles/Vol] 103 mmol/L Normal 98-107 [facility] Comment on above: Order Comment: Campu s: M Performed By: #### L 500.92508, L500.39252 #### [facility] [address] [place] [address] CO2 [Moles/Vol] 28.0 mmol/L Normal 21-32 [facility] Comment on above: Order Comment: Campu s: M Performed By: #### L 500.82854, L500.66229 #### [facility] [address] [place] [address] Creatinine [Mass/Vol] 0.87 mg/dL Normal 0.5-1.4 [facility] Comment on above: Order Comment: Campu s: M Result Comment: NOTE NEW NORMAL RANGE DUE TO REAGENT CHANGE Patients receiving either N-Acetylcysteine (NAC) or Metamizole prior to venipuncture, may have falsely depressed results. Performed By: #### L 500.06426, L500.45281 #### [facility] [address] [place] [address] Globulin (S) [Mass/Vol] 3.1 g/dL Normal 2.2-4.2 [facility] Comment on above: Order Comment: Campu s: M Performed By: #### L 500.11881, L500.09816 #### [facility] [address] [place] [address] Glucose [Mass/Vol] 143 mg/dL High 70-100 [facility] Comment on above: Order Comment: Campu s: M Result Comment: 70-1 00- Normal Fasting; 100-125 Impaired Fasting; greater than 126 on more than one result- Diabetes. ADA guidelines. Results may be falsely elevated after the administration of Sulfapyridine. Results may be falsely depressed after the administration of Sulfasalazine. Performed By: #### L 500.22097, L500.33421 #### [facility] [address] [place] [address] Potassium [Moles/Vol] 3.6 mmol/L Normal 3.5-5.1 [facility] Comment on above: Order Comment: Campu s: M Performed By: #### L 500.15068, L500.67817 #### [facility] [address] [place], [place] [address] Protein [Mass/Vol] 5.7 g/dL Low 6.0-8.5 [facility] Comment on above: Order Comment: Campu s: M Performed By: #### L 500.25844, L500.62073 #### [facility] [address] [place] [address] Sodium [Moles/Vol] 137 mmol/L Normal 136-145 [facility] Comment on above: Order Comment: Campu s: M Performed By: #### L 500.98030, L500.68418 #### [facility] [place] [address] Urea nitrogen [Mass/Vol] 34 mg/dL High 7-26 [facility] Comment on above: Order Comment: Campu s: M Performed By: #### L 500.90024, L500.78165 #### [facility] [address] [place] [address] Urea nitrogen/Creatinine [Mass ratio] 39 mg/mg High 15-24 [facility] Comment on above: Order Comment: Campu s: M Performed By: #### L 500.83087, L500.18229 #### [facility] [address] [place] [address] GFR ESTon 01-11-2021 IF AMER Greater than [address] [facility] Comment on above: Order Comment: Campu s: M Performed By: #### L 500.33034, L500.75337 #### [facility] [address] [place] [address] IF non-AFR AMER Greater than [address] [facility] Comment on above: Order Comment: Campu s: M Performed By: #### L 500.03809, L500.08824 #### [facility] [address] [place] [address] GLUCOSE METERon 01-11-2021 Glucose [Mass/Vol] 127 mg/dL High 85-125 [facility] Glucose [Mass/Vol] 152 mg/dL High 85-125 [facility] Glucose [Mass/Vol] 174 mg/dL High 85-125 [facility] Glucose [Mass/Vol] 152 mg/dL High 85-125 [facility] PROG.NOTEon 01-11-2021 PROG.NOTE [facility] Patient Name: MELISSA ELIAS [address] [place] [address] Date of : [address] [address] Unit Number: [id number] Progress Note-Physician Patient Status: ADM IN Attending Doctor: Omari Rabago MD Service Date: 01/11/21 0842 Subjective S: (2 ROS minimum) Patient is resting in bed. Patient is feeling better. His pain is much better controlled. His blood pressure stable. Patient denies chest pain, shortness of breath, abdominal pain, nausea, vomiting, diarrhea, constipation. Objective (ROS) Nursing Vitals IandO 24 Hour Summary 01/11 0000 Intake Total 1600 Output Total 1 Balance 1599 Intake, Oral 1600 Number 7 Unmeasured Voids Output, Stool 1 Vital Signs (Last) Result Date Time Pulse Ox 95 01/11 731 B/P 137/59 01/11 731 Temp 98.6 01/11 731 Pulse 97 01/11 07 Resp 16 01/11 07 FiO2 21 01/11 0155 O2 Delivery BIPAP 01/09 0329 O2 Flow Rate 3 01/08 0807 General: Patient is alert and oriented x3 and is in no acute respiratory distress. Patient follows commands well. Patient speaks in full sentences. There is no respiratory distress or accessory respiratory muscle use noted. Neck: Negative hepatojugular reflux or jugular venous distention Lungs: Clear to auscultation, no wheezing, rales, or rhonchi. Cardiac: Regular rhythm and rate, S1-S2 within normal limits, no murmurs, gallops were appreciated, no rubs. Abdomen: Soft, nontender, nondistended, bowel sounds are positive. Extremities: No cyanosis, or clubbing. 2+ lower extremity edema. Chronic venous stasis dermatitis noted. No Homans' sign bilaterally. Skin: No rashes or breakdown. Chronic venous stasis dermatitis of bilateral lower legs noted. Neurologic: Cranial nerves from II-XII intact grossly. Psychiatry: Normal affect. Assessment and Plan Conclusion 1. Lumbar adjacent segment disease with spondylolisthesis 2. Acute kidney injury 3. Diabetes mellitus type 2 in obese 4. BATOOL treated with BiPAP 5. Morbid obesity with BMI of 50.0-59.9, adult 6. Hypertension, essential 7. Hyperlipidemia, mixed Plan PT/OT Encourage p.o. fluids Check labs in a.m. Encourage incentive spirometry On Sat 11:09a Jan 10, 2021 SORIN CHAVIS wrote Plan Check labs in a.m. PT/OT Continue medications Encourage p.o. fluids Encourage incentive spirometry Disclaimer This dictation was created using voice recognition software. Phonetic and/or minor grammatical errors may exist. eSign Date and Time Sorin Chavis DO Verified/Reviewed by 01/11/21 1008 [facility] [place] Progress Note-Physician [facility] [place] PROG.ORTHOon 01-11-2021 PROG.[facility] Patient Name: MELISSA ELIAS [address] Date of : [address] [place], [place] [address] Unit Number: [id number] Progress Note-Ortho Patient Status: ADM IN Attending Doctor: Omari Rabago MD Service Date: 01/11/21 1440 Progress Note - Ortho Subjective S: (2 ROS minimum) pain much better controlled. +BMs. Walking to bathroom, nursing station. Objective Physical Exam stable exam dressing bloody Assessment/Plan Conclusion 1. Lumbar adjacent segment disease with spondylolisthesis POD#4 [id number] -pain better -hold Lovenox -change dressing now and prn On Sat 12:47p Jan 10, 2021 OMARI RABAGO wrote POD#3 [id number] -start Toradol, gabapentin, IV dilaudid -continue po dilaudid -BiPAP -Lovenox On Fri 5:05p Jan 09, 2021 OMARI RABAGO wrote POD#2 [id number] -monitor bowel function -BiPAP -Blood sugars improved -Lovenox started -Monitor HVAC On Cora 6:50a Jan 08, 2021 OMARI RABAGO wrote POD#1 [id number], L2-3 Ponted osteotomy and TLIF -Pain control. Continue dilaudid at this time. -BiPAP -Blood sugars elevated -Plan to start Lovenox tomorrow -Monitor HVAC -Anticipate >3 nights hospitalization Disclaimer This dictation was created using voice recognition software. Phonetic and/or minor grammatical errors may exist. eSign Date and Time Omari Rabago MD Verified/Reviewed by 01/11/21 1442 [facility] Progress Note-Ortho [facility] 01-11-2021 PT Progress Note [facility] PTPN Physical Therapy Inpatient Treatment Note Medical Diagnosis: s/p L2-3 TLIF, T10-L3 PLIF, L5-S1 PLIF, with partial removal L3-S1 and pelvic posterior instrumentation with reinstrumentation T10-S1 and L2-3 david oste[address] performed by Dr[address] Rabago on 01/08/21 Demographics: Age: 55Y Gender: Male Primary Language: German Preferred Language: German Rehabilitation Precautions/Restrictions: Spinal precautions, log roll, hemovac SUBJECTIVE Patient Report: Pt was pleasant and agreeable to therapy. Patient/Caregiver Goals: To get stronger Pain: Patient currently has pain. Patient reports a pain level of 7 out of 10. Interventions: Repositioned patient. OBJECTIVE General Observation: Pt up in chair at start and end of treatment with all needs in reach. Functional Activities After Today's Session: Transfers: Patient transferred sit to/from stand requiring supervision. Patient used the following equipment: Arms of chair. Locomotion/Ambulation: Patient was supervision with gait/ambulation for 150 feet x2 with standing rest breaks d/t SOB . Patient requires the following assistive device(s): Rolling walker. steady gait; no LOB on level surface Stairs: Not assessed. Will address at next treatment. Curb Negotiation: Not assessed. AM-PAC Basic Mobility: Turning Over in Bed: A little difficulty Sitting/Standing Chair with Arms: A little difficulty Lying on Back to Sitting on Side of Bed: A little difficulty Moving To/From Bed to Chair: No help needed Walking in Hospital Room: No help needed Climbing 3-5 Steps with Railing: A little help needed Raw Score = 20 , AM-PAC t-Scale Score = 47.67 and G-Code Modifier = CJ Vital Signs: Vitals: Oxygen Saturation: 98 % [facility] PATIENT NAME: MELISSA ELIAS [address] [facility] [address] MEDICAL REC #: [id number] [place] [address] ADMIT DATE: 01/09/21 SERVICE DATE: 01/11/21 Physical Therapy Progress Note ATTENDING PHY: Omari Rabago MD Interventions: Therapeutic Activities: activites for endurance, strengthening. Includes gait, imagery/breathing for pain control/to decrease SOB that occurs with amb. education. Pain Reassessment: No significant change in pain during session. Education: Education Provided: Safety issues and interventions. Supervision requirements. Incentive spirometry. Functional transfers. Gait. Safety. DVT prevention; imagery for pain relief; pursed lip breathing during amb; pacing during amb d/t SOB/ . Audience: Patient. Mode: Explanation. Demonstration. Response: Verbalized understanding. Applied knowledge. Needs reinforcement. ASSESSMENT Response to Visit: Pt tolerated well and demos improvements with transfers and mobitlity. Pt pain is controlled and nnot a limiting factor. He does have SOB with amb, improved with pacing, does not desat. Pt will need to address stairs for the reccommendation of homegoing with 06/12 assist. Activity/Participation Problem List and Goals: No updates at this time. Progress Toward Goals: TREATMENT GOAL REVIEW: 1. Complete 80 feet supv ww - Met 2. Complete transfers supv - Met 3. Complete verbalization of HEP indep - Not Met ongoing 4. Complete 3 steps SBA - Not Met: ongoing Time frame to achieve treatment goal(s): 2 weeks PLAN Treatment Frequency, Duration and Interventions: Physical Therapy is recommended for BID for three days Physical Therapy treatment is to include: Gait training, transfer training, balance, functional tasks, HEP, thera act, thera exercise, demonstration and performance of stair negotiation, education on home going safety/recommendations, educated on fall risk, education on mobility benefits, educate on ice management, educate on car transfer, and educated on pain control through deep breathing/ice/mobility/el evated and pain medications. Recommended Physical Therapy Follow Up: Upon acute care discharge, the following [facility] PATIENT NAME: MELISSA ELIAS [address] [facility] [address] MEDICAL REC #: [id number] [place] [address] ADMIT DATE: 01/09/21 SERVICE DATE: 01/11/21 Physical Therapy Progress Note ATTENDING PHY: Omari Rabago MD is currently recommended: Home exercise program. Recommended Equipment: None issued this visit. Recommended Consults: Development of Plan of Care: Patient participated in plan of care development today. home with 06/12 If there are any questions regarding this service, please contact the Acute Therapy Department at extension [phone] Location of Patient at End of Therapy Session: In chair, call light within reach Services: Total Billed: 40 minutes (Timed: 40, Untimed: 0) 40.00 Timed: [69777] THER ACTIVITIES / 15 MIN Signed by: MARISSA GARCIAS PTA 01/11/2021 14:09:00 - CoSigned By: Bernice Horowitz (more content not included)... Normal [facility] CMPon 01-10-2021 Albumin [Mass/Vol] 2.9 g/dL Low 3.2-5.0 [facility] Comment on above: Order Comment: Campu s: M Performed By: #### L 500.99326, L500.94485 ####[facility] [id number] [place], [place] [address]Jh# [phone] Albumin/Globulin [Mass ratio] 0.9 {ratio} Normal 0.8-2.0 [facility] Comment on above: Order Comment: Campu s: M Performed By: #### L 500.44972, L500.27088 ####[facility] [id number] [place], [place] [address]Pi# [phone] ALK PHOS 70 U/L Normal 45-117 [facility] Comment on above: Order Comment: Campu s: M Performed By: #### L 500.18124, L500.47100 ####[facility] [id number] [place], [place] [address]Qs# [phone] ALT [Catalytic activity/Vol] 183 U/L High 13-61 [facility] Comment on above: Order Comment: Campu s: M Result Comment: RESU LTS MAY BE FALSELY DEPRESSED AFTER THE ADMINISTRATION OF SULFASALAZINE AND/OR SULFAPYRIDINE. Performed By: #### L 500.43638, L500.18783 ####[facility] [id number] [place], [place] [address]Pt# [phone] Anion gap [Moles/Vol] 5 mmol/L Normal 5-16 [facility] Comment on above: Order Comment: Campu s: M Performed By: #### L 500.89861, L500.14709 ####[facility] [id number] [place], [place] [address]Uc# [phone] AST [Catalytic activity/Vol] 222 U/L High 8-34 [facility] Comment on above: Order Comment: Campu s: M Result Comment: RESU LTS MAY BE FALSELY DEPRESSED AFTER THE ADMINISTRATION OF SULFASALAZINE AND/OR SULFAPYRIDINE. Performed By: #### L 500.02538, L500.76182 ####[facility] [id number] [place], [place] [address]Jr# [phone] BILI TOTAL 0.70 MG/DL Normal 0.2-1.0 [facility] Comment on above: Order Comment: Campu s: M Performed By: #### L 500.15806, L500.99282 ####[facility] [id number] [place], [place] [address]Oi# [phone] Calcium [Mass/Vol] 8.1 mg/dL Low 8.5-10.5 [facility] Comment on above: Order Comment: Campu s: M Result Comment: NOTE NEW NORMAL RANGE DUE TO REAGENT CHANGE Performed By: #### L 500.81501, L500.99405 ####[facility] [id number] [place], [place] [address]Iq# [phone] Chloride [Moles/Vol] 102 mmol/L Normal 98-107 [facility] Comment on above: Order Comment: Campu s: M Performed By: #### L 500.68536, L500.82721 ####[facility] [id number] [place], [place] [address]Rq# [phone] CO2 [Moles/Vol] 28.0 mmol/L Normal 21-32 [facility] Comment on above: Order Comment: Campu s: M Performed By: #### L 500.30555, L500.12852 ####[facility] [id number] [place], [place] [address]Xh# [phone] Creatinine [Mass/Vol] 0.89 mg/dL Normal 0.5-1.4 [facility] Comment on above: Order Comment: Campu s: M Result Comment: NOTE NEW NORMAL RANGE DUE TO REAGENT CHANGE Patients receiving either N-Acetylcysteine (NAC) or Metamizole prior to venipuncture, may have falsely depressed results. Performed By: #### L 500.41481, L500.84153 ####[facility] [id number] [place], [place] [address]Xx# [phone] Globulin (S) [Mass/Vol] 3.3 g/dL Normal 2.2-4.2 [facility] Comment on above: Order Comment: Campu s: M Performed By: #### L 500.43944, L500.62136 ####[facility] [id number] [place], [place] [address]Jm# [phone] Glucose [Mass/Vol] 163 mg/dL High 70-100 [facility] Comment on above: Order Comment: Campu s: M Result Comment: 70-1 00- Normal Fasting; 100-125 Impaired Fasting; greater than 126 on more than one result- Diabetes. ADA guidelines. Results may be falsely elevated after the administration of Sulfapyridine. Results may be falsely depressed after the administration of Sulfasalazine. Performed By: #### L 500.21240, L500.27665 ####[facility] [id number] [place], [place] [address]Nk# [phone] Potassium [Moles/Vol] 3.8 mmol/L Normal 3.5-5.1 [facility] Comment on above: Order Comment: Campu s: M Performed By: #### L 500.94460, L500.21410 ####[facility] [id number] [place], [place] [address]Ie# [phone] Protein [Mass/Vol] 6.2 g/dL Normal 6.0-8.5 [facility] Comment on above: Order Comment: Campu s: M Performed By: #### L 500.20243, L500.79668 ####[facility] [id number] [place], [place] [address]Cy# [phone] Sodium [Moles/Vol] 135 mmol/L Low 136-145 [facility] Comment on above: Order Comment: Campu s: M Performed By: #### L 500.92704, L500.10162 ####[facility] [id number] [place], [place] [address]Nz# [phone] Urea nitrogen [Mass/Vol] 34 mg/dL High 7-26 [facility] Comment on above: Order Comment: Campu s: M Performed By: #### L 500.54102, L500.49413 ####[facility] [id number] [place] [address]Gf# [phone] Urea nitrogen/Creatinine [Mass ratio] 38 mg/mg High 15-24 [facility] Comment on above: Order Comment: Campu s: M Performed By: #### L 500.20449, L500.67368 ####[facility] [id number] [place] [address]Am# [phone] GFR ESTon 01-10-2021 IF AMER Greater than 60 Normal [facility] [place] Comment on above: Order Comment: Campu s: M Performed By: #### L 500.37975, L500.05137 ####[facility] [id number] [place] [address]Gv# [phone] IF non-AFR AMER Greater than 60 Normal [facility] [place] Comment on above: Order Comment: Campu s: M Performed By: #### L 500.42183, L500.65604 ####[facility] [id number] [place] [address]Gp# [phone] GLUCOSE METERon 01-10-2021 Glucose [Mass/Vol] 139 mg/dL High 85-125 [facility] [place] Glucose [Mass/Vol] 210 mg/dL High 85-125 [facility] [place] Glucose [Mass/Vol] 181 mg/dL High 85-125 [facility] [place] Glucose [Mass/Vol] 164 mg/dL High 85-125 [facility] OTPNon 01-10-2021 OT Progress Note Normal [facility] OT Occupational Therapy Inpatient Treatment Note Medical Diagnosis: s/p L2-3 TLIF, T10-L3 PLIF, L5-S1 PLIF, with partial removal L3-S1 and pelvic posterior instrumentation with reinstrumentation T10-S1 and L2-3 david osteotomy performed by Dr. Rabago on 01/08/21 OCCUPATIONAL PROFILE AND HISTORY Demographics: Age: 55Y Gender: Male Primary Language: German Preferred Language: German Referring Service/Team: Medicine Rehabilitation Precautions/Restrictions: Spinal precautions, log roll, hemovac Patient Report: Pt was pleasant and agreeable to therapy I have to use the bathroom, it feels better now that i was up walking Patient/Caregiver Goals: To get stronger Pain: Patient currently has pain. Patient reports a pain level of 9 out of 10. Interventions: Repositioned patient. OBJECTIVE / OCCUPATIONAL PERFORMANCE General Observation: Pt in chair upon arrival Activities of Daily Living: Current Status Previous Status ADLs Feeding - Independent Grooming - Supervision Bathing-UE - Supervision Bathing-LE - Maximal assistance Dressing-UE - Supervision Dressing-LE Moderate assistance Maximal assistance Toileting Maximal assistance Moderate assistance AM-PAC Daily Activities: Putting On/Taking Off Lower Body Clothing: A lot of help needed Bathing:: A lot of help needed Toileting: A lot of help needed Putting On/Taking Off Upper Body Clothing: A little help needed Grooming: A little help needed Eating a Meal: No help needed [facility] PATIENT NAME: MELISSA ELIAS [address] [facility] [address] MEDICAL REC #: [id number] [place] [address] ADMIT DATE: 01/09/21 SERVICE DATE: 01/10/21 Occupational Therapy Progress Note ATTENDING PHY: Omari Rabago MD Raw Score = 16 , AM-PAC t-Scale Score = 35.96 and G-Code Modifier = CK Functional Mobility: Bed Mobility: Not assessed. Transfers: Patient transferred sit to/from stand requiring minimal assistance of 1 person. Patient transferred to/from the toilet requiring minimal assistance of 1 person. Patient used the following equipment: Rolling walker. Grab bars. Locomotion/Gait/Ambulatio n: Patient was minimal assist with gait/ambulation of 1 person for 25 ft x 2 . Patient requires the following assistive device(s): Rolling walker. slow, decreased step length Interventions: Self Care/Home Management: Pt WW safety and spinal precaution ed. Pt sit to stand to WW, functional mobility to bathroom, pt transferred to toilet and completed toileting, pt is unable to complete posterior trish care, standing at SBA level w/ no LoB for trish care using grab bar to stabilize. Pt returned to room and donned LE clothing using filtration operator. Pt was able to assist w/ clothing management at Min a level for standing balance. Pt relies heavily on WW today but demos no overt LoB during mobility and standing tasks, PoC ed Pain Reassessment: No significant change in pain during session. Education: Education Provided: Precautions. Plan of care. Safety issues and interventions. Use of adaptive devices. Functional transfers. Activities of daily living. Audience: Patient. Mode: Explanation. Demonstration. Response: Needs practice. Needs reinforcement. ASSESSMENT Response to Visit: Pt tolerated well and demos small improvements w/ transfers and mobility today. Pt demos fair overall strength and static standing balance but fatigues quickly and is limited by severe pain. Pt is a heavy assist for LE self care tasks and recommended for rehab. Pt is refusing placement, next best option is home OT and assistance from family Activity/Participation Problem List and Goals: No updates at this time. Progress Toward Goals: TREATMENT GOAL REVIEW: 1. Complete toilet transfers and tasks with Mod I and good safety awareness. - Not Met: Ongoing 2. Complete LB ADLs with Mod I, safe spinal precautions and use of LB as needed. - Not Met Ongoing 3. Demo ability to stand for 3-5 minutes with Good balance and UE support as needed as a precurser for safe ADL/IADL management upon homegoing. - Not Met [facility] PAT[facility] REC #: [id number] [place] [address] ADMIT DATE: 01/09/21 SERVICE DATE: 01/10/21 Occupational Therapy Progress Note ATTENDING PHY: Omari Rabago MD Ongoing 4. Complete household functional mobility with Mod I using LRD as needed with safe activity pacing to decrease risk for falls. - Not Met Ongoing Time frame to achieve treatment goal(s): 2 weeks PLAN Treatment Frequency, Duration and Interventions: Continue Occupational Therapy to achieve goals per previously established Plan of Care. : Occupational Therapy is recommended for 6x/week x 2 weeks Occupational Therapy treatment is (more content not included)... Normal [facility] PROG.NOTEon 01-10-2021 PROG.NOTE [facility] Patient Name: MELISSA ELIAS [facility] [address] Date of : [address] [place], [place] [address] Unit Number: [id number] Progress Note-Physician Patient Status: ADM IN Attending Doctor: Omari Rabago MD Service Date: 01/10/21 1103 Subjective S: (2 ROS minimum) Patient is resting in bed. Patient complains of left hip and left back pain. Patient denies chest pain or shortness of breath. Patient denies nausea, vomiting, diarrhea, constipation. He states he had 2 bowel movements. Patient states he has a good appetite. Objective (ROS) Nursing Vitals Vital Signs (Last) Result Date Time Pulse Ox 95% 01/10 855 B/P 113/59 01/10 855 Temp 98.9 01/10 08 Pulse 102 01/10 0855 Resp 24 01/10 0855 FiO2 21 01/10 0001 O2 Delivery BIPAP 01/09 0329 O2 Flow Rate 3 01/08 0807 IandO 24 Hour Summary 01/10 0000 Intake Total 2861 Output Total 415 Balance 2446 Intake, IV 1561 Intake, Oral 1300 Number 6 Unmeasured Voids Output, 65 Drainage Output, Other 50 Output, Stool 0 Output, Urine 300 General: Patient is alert and oriented x3 and is in no acute respiratory distress. Patient follows commands well. Patient speaks in full sentences. There is no respiratory distress or accessory respiratory muscle use noted. Neck: Negative hepatojugular reflux or jugular venous distention Lungs: Clear to auscultation, no wheezing, rales, or rhonchi. Cardiac: Regular rhythm and rate, S1-S2 within normal limits, no murmurs, gallops were appreciated, no rubs. Abdomen: Soft, nontender, nondistended, bowel sounds are positive. Extremities: No cyanosis, or clubbing. 2-3+ lower extremity edema. Chronic venous stasis dermatitis noted. No Homans' sign bilaterally. Skin: No rashes or breakdown. Chronic venous stasis dermatitis of bilateral lower legs noted. Neurologic: Cranial nerves from II-XII intact grossly. Psychiatry: Normal affect. Assessment and Plan Conclusion 1. Lumbar adjacent segment disease with spondylolisthesis 2. Acute kidney injury 3. Diabetes mellitus type 2 in obese 4. BATOOL treated with BiPAP 5. Morbid obesity with BMI of 50.0-59.9, adult 6. Hypertension, essential 7. Hyperlipidemia, mixed Plan Check labs in a.m. PT/OT Continue medications Encourage p.o. fluids Encourage incentive spirometry Disclaimer This dictation was created using voice recognition software. Phonetic and/or minor grammatical errors may exist. eSign Date and Time Sorin Chavis DO Verified/Reviewed by 01/10/21 1109 [facility] Progress Note-Physician [facility] PROG.ORTHOon 01-10-2021 PROG.ORTHO [facility] Patient Name: MELISSA ELIAS [address] Date of : [address] [place] [address] Unit Number: [id number] Progress Note-Ortho Patient Status: ADM IN Attending Doctor: Omari Rabago MD Service Date: 01/10/21 1246 Progress Note - Ortho Subjective S: (2 ROS minimum) left groin pain, severe. o/w no complaints. tearful from pain. Objective Physical Exam laying in bed. tearful SILT wiggles toes, ankles. Assessment/Plan Conclusion 1. Lumbar adjacent segment disease with spondylolisthesis POD#3 [id number] -start Toradol, gabapentin, IV dilaudid -continue po dilaudid -BiPAP -Lovenox On Fri 5:05p Jan 09, 2021 OMARI RABAGO wrote POD#2 [id number] -monitor bowel function -BiPAP -Blood sugars improved -Lovenox started -Monitor HVAC On Cora 6:50a Jan 08, 2021 OMARI RABAGO wrote POD#1 [id number], L2-3 Ponted osteotomy and TLIF -Pain control. Continue dilaudid at this time. -BiPAP -Blood sugars elevated -Plan to start Lovenox tomorrow -Monitor HVAC -Anticipate >3 nights hospitalization Disclaimer This dictation was created using voice recognition software. Phonetic and/or minor grammatical errors may exist. eSign Date and Time Omari Rabago MD Verified/Reviewed by 01/10/21 1247 [facility] Progress Note-Ortho [facility] PTPNon 01-10-2021 PT Progress Note [facility] PTPN Physical Therapy Inpatient Missed Visit Note Attempted to visit patient for therapy, but was unable for the following reasons: Patient refused treatment. Pain. 1st attempt pt requiesting therapy to come back later as he had just worked w/ OT and was fatigued/ painful. 2nd attempt pt reports extreme L sided groin pain/LBP asking therapy to return in 10 minutes. 3rd attempt nursing in room repositioning pt into sidelying to attempt to relieve pain. Nursing asking therapy to hold until pain can better be managed. Return Plan: Will return as soon as possible for another attempt. If there are any questions regarding this service, please contact the Acute Therapy Department at extension [phone] Services: Total Billed: 0 minutes (Timed: 0, Untimed: 0) 0.00 Untimed: [] PT Treatment- General ORDER Signed by: Marcy Clifton, FATOU 01/10/2021 12:07:40 - CoSigned By: Iron Pabon, PT, DPT 01/10/2021 2:36:51 PM [facility] PATIENT NAME: MELISSA ELIAS [facility] [address] MEDICAL REC #: [id number] [place] [address] ADMIT DATE: 01/09/21 SERVICE DATE: 01/10/21 Physical Therapy Progress Note ATTENDING PHY: Omari Rabago MD [facility] ABDOMEN OR KUBon 01-09-2021 ABDOMEN OR KUB ABDOMEN: Clinical Statement: Postop pain Comparison: None FINDINGS: Patient is status post thoracolumbar posterior support rods with attachment to the iliac bones. The right hip has been replaced. There is a left side to overlapping the left mid lung medially. Bowel gas pattern is unremarkable. There is a tiny stone overlying the right kidney. IMPRESSION: Nonobstructive bowel gas pattern. This report was electronically signed by Maurizio Pringle MD 01/09/2021 12:53 PM Reported By: MAURIZIO PRINGLE M.D. Signed By: MAURIZIO PRINGLE M.D. [facility] BMPon 01-09-2021 Anion gap [Moles/Vol] 5 mmol/L Normal 5-16 [facility] Comment on above: Order Comment: Campu s: M Performed By: #### L 500.34000, L500.81057 ####[facility] [id number] [place], [place] [address]An# [phone] Calcium [Mass/Vol] 7.6 mg/dL Low 8.5-10.5 [facility] Comment on above: Order Comment: Campu s: M Result Comment: NOTE NEW NORMAL RANGE DUE TO REAGENT CHANGE Performed By: #### L 500.59799, L500.56957 ####[facility] [id number] [place], [place] [address]Ic# [phone] Chloride [Moles/Vol] 99 mmol/L Normal 98-107 [facility] Comment on above: Order Comment: Campu s: M Performed By: #### L 500.44449, L500.07371 ####[facility] [id number] [place], [place] [address]Ke# [phone] CO2 [Moles/Vol] 28.0 mmol/L Normal 21-32 [facility] Comment on above: Order Comment: Campu s: M Performed By: #### L 500.58287, L500.72872 ####[facility] [id number] [place], [place] [address]Ug# [phone] Creatinine [Mass/Vol] 1.39 mg/dL Normal 0.5-1.4 [facility] Comment on above: Order Comment: Campu s: M Result Comment: NOTE NEW NORMAL RANGE DUE TO REAGENT CHANGE Patients receiving either N-Acetylcysteine (NAC) or Metamizole prior to venipuncture, may have falsely depressed results. Performed By: #### L 500.41451, L500.48952 ####[facility] [id number] [place], [place] [address]Wp# [phone] Glucose [Mass/Vol] 158 mg/dL High 70-100 [facility] Comment on above: Order Comment: Campu s: M Result Comment: 70-1 00- Normal Fasting; 100-125 Impaired Fasting; greater than 126 on more than one result- Diabetes. ADA guidelines. Results may be falsely elevated after the administration of Sulfapyridine. Results may be falsely depressed after the administration of Sulfasalazine. Performed By: #### L 500.94358, L5.75137 ####[facility] [id number] [place], [place] [address]Ar# [phone] Potassium [Moles/Vol] 3.7 mmol/L Normal 3.5-5.1 [facility] Comment on above: Order Comment: Campu s: M Performed By: #### L 500.89190, L5.92214 ####[facility] [id number] [place], [place] [address]Ej# [phone] Sodium [Moles/Vol] 132 mmol/L Low 136-145 [facility] Comment on above: Order Comment: Campu s: M Performed By: #### L 500.26712, L500.26310 ####[facility] [id number] [place], [place] [address]Jb# [phone] Urea nitrogen [Mass/Vol] 40 mg/dL High 7-26 [facility] Comment on above: Order Comment: Campu s: M Performed By: #### L 500.87299, L500.91961 ####[facility] [id number] [place], [place] [address]Cl# [phone] Urea nitrogen/Creatinine [Mass ratio] 29 mg/mg High 15-24 [facility] Comment on above: Order Comment: Campu s: M Performed By: #### L 500.53614, L500.21959 ####[facility] [id number] [place], [place] [address]Jt# [phone] Anion gap [Moles/Vol] 3 mmol/L Low 5-16 [facility] Comment on above: Order Comment: Campu s: M Performed By: #### L 500.67611, L500.10426, L500.78632, L500.45943 #### [facility] [place] [address] Calcium [Mass/Vol] 7.6 mg/dL Low 8.5-10.5 [facility] Comment on above: Order Comment: Campu s: M Result Comment: NOTE NEW NORMAL RANGE DUE TO REAGENT CHANGE Performed By: #### L 500.39426, L500.49217, L500.86247, L500.10212 #### [facility] [address] [place] [address] Chloride [Moles/Vol] 100 mmol/L Normal 98-107 [facility] Comment on above: Order Comment: Campu s: M Performed By: #### L 500.14507, L500.89626, L500.50562, L500.25521 #### [facility] [address] [place] [address] CO2 [Moles/Vol] 30.0 mmol/L Normal 21-32 [facility] Comment on above: Order Comment: Jeremieu s: M Performed By: #### L 500.14363, L500.89562, L500.26285, L500.08267 #### [facility] [place] [address] Creatinine [Mass/Vol] 1.63 mg/dL High 0.5-1.4 [facility] Comment on above: Order Comment: Campu s: M Result Comment: NOTE NEW NORMAL RANGE DUE TO REAGENT CHANGE Patients receiving either N-Acetylcysteine (NAC) or Metamizole prior to venipuncture, may have falsely depressed results. Performed By: #### L 500.59881, L500.76900, L500.17581, L500.70329 #### [facility] [address] [place] [address] Glucose [Mass/Vol] 148 mg/dL High 70-100 [facility] Comment on above: Order Comment: Campu s: M Result Comment: 70-1 00- Normal Fasting; 100-125 Impaired Fasting; greater than 126 on more than one result- Diabetes. ADA guidelines. Results may be falsely elevated after the administration of Sulfapyridine. Results may be falsely depressed after the administration of Sulfasalazine. Performed By: #### L 500.30290, L500.44553, L500.78622, L500.50826 #### [facility] [place] [address] Potassium [Moles/Vol] 3.6 mmol/L Normal 3.5-5.1 [facility] Comment on above: Order Comment: Jeremieu s: M Performed By: #### L 500.81730, L500.75652, L500.74444, L500.44196 #### [facility] [place] [address] Sodium [Moles/Vol] 132 mmol/L Low 136-145 [facility] Comment on above: Order Comment: Campu s: M Performed By: #### L 500.63794, L500.82179, L500.04132, L500.06412 #### [facility] [place] [address] Urea nitrogen [Mass/Vol] 39 mg/dL High 7-26 [facility] Comment on above: Order Comment: Campu s: M Result Comment: Delt a check reviewed Performed By: #### L 500.47946, L500.05702, L500.58051, L500.55199 #### [facility] [address] [place], [place] [address] Urea nitrogen/Creatinine [Mass ratio] 24 mg/mg Normal 15-24 [facility] Comment on above: Order Comment: Campu s: M Performed By: #### L 500.51794, L500.33093, L500.77291, L500.51988 #### [facility] [address] [place], [place] [address] GFR ESTon 01-09-2021 IF AMER Greater than [address] [facility] Comment on above: Order Comment: Campu s: M Performed By: #### L 500.74475, L500.94918 ####[facility] [id number] [place], [place] [address]Tk# [phone] IF non-AFR AMER 53 Normal [facility] Comment on above: Order Comment: Campu s: M Performed By: #### L 500.64101, L500.20040 ####[facility] [id number] [place], [place] [address]Io# [phone] IF AMER 54 Normal [facility] Comment on above: Order Comment: Campu s: M Performed By: #### L 500.64287, L500.03136, L500.03213, L500.46818 #### [facility] [address] [place], [place] [address] IF non-AFR AMER 44 Normal [facility] Comment on above: Order Comment: Campu s: M Performed By: #### L 500.60538, L500.34553, L500.76373, L500.30370 #### [facility] [address] [place] [address] GLUCOSE METERon 01-09-2021 Glucose [Mass/Vol] 212 mg/dL High 85-125 [facility] Glucose [Mass/Vol] 129 mg/dL High 85-125 [facility] Glucose [Mass/Vol] 259 mg/dL High 85-125 [facility] Comment on above: Performed By: #### L 500.73230, L500.22409 #### [facility] [address] [place] [address] Glucose [Mass/Vol] 164 mg/dL High 85-125 [facility] HHon 01-09-2021 Hematocrit (Bld) [Volume fraction] 28.6 % Low 41.0-53.0 [facility] Comment on above: Order Comment: Campu s: M Performed By: #### L 500.51547, L500.45252, L500.10285, L500.89005 #### [facility] [address] [place] [address] Hemoglobin (Bld) [Mass/Vol] 9.1 g/dL Low 13.5-17.5 [facility] Comment on above: Order Comment: Campu s: M Performed By: #### L 500.52518, L500.07306, L500.03545, L500.42952 #### [facility] [address] [place] [address] OTPNon 01-09-2021 OT Progress Note Normal [facility] OTPN Occupational Therapy Inpatient Treatment Note Medical Diagnosis: s/p L2-3 TLIF, T10-L3 PLIF, L5-S1 PLIF, with partial removal L3-S1 and pelvic posterior instrumentation with reinstrumentation T10-S1 and L2-3 david [address] performed by Dr[address] Rabago on 01/08/21 OCCUPATIONAL PROFILE AND HISTORY Demographics: Age: 55Y Gender: Male Primary Language: German Preferred Language: German Referring Service/Team: Orthopedic Spine Rehabilitation Precautions/Restrictions: Spinal precautions, log roll, hemovac Patient Report: I FEEL GOOD, BUT I NEED TO LAY DOWN AFTER THIS, IM TIRED Patient/Caregiver Goals: To get stronger Pain: Patient currently has pain. Patient reports a pain level of 4 out of 10. Interventions: Patient medicated. PRIOR TO TX OBJECTIVE / OCCUPATIONAL PERFORMANCE General Observation: SEEN FOR FULL ADLS AM THIS DATE, PATIENT IN CHAIR JUST FINISHED BREAKFAST, WAS MOTIVATED TO WORK, WAS BACK IN BED W/ ALL NEEDS IN REACH POST SESSION Activities of Daily Living: Current Status Previous Status ADLs Feeding Independent Independent Grooming Supervision Supervision Bathing-UE Supervision Minimal assistance Bathing-LE Maximal assistance Maximal assistance Dressing-UE Supervision Minimal assistance Dressing-LE Maximal assistance Maximal assistance Toileting Moderate assistance Moderate assistance AM-PAC Daily Activities: Putting On/Taking Off Lower Body Clothing: A lot of help needed Bathing:: A lot of help needed Toileting: A lot of help needed Putting On/Taking Off Upper Body Clothing: A little help needed Grooming: A little help needed Eating a Meal: No help needed [facility] PATIENT NAME: MELISSA ELIAS [address] [facility] [address] MEDICAL REC #: [id number] [place] [address] ADMIT DATE: SERVICE DATE: 01/09/21 Occupational Therapy Progress Note ATTENDING PHY: Omari Rabago MD Raw Score = 16 , AM-PAC t-Scale Score = 35.96 and G-Code Modifier = CK Functional Mobility: Bed Mobility: All bed mobility including supine to sit, rolling, scooting. requiring maximal assistance. CUES FOR LOG ROLLING AND SUPINE TO SIT Transfers: Patient transferred bed to/from chair requiring minimal assistance of 1 person. Patient used the following equipment: Rolling walker. CUERS FOR PUSHING UP, REACHING BACK Locomotion/Gait/Ambulatio n: Not assessed/applicable Interventions: Self Care/Home Management: BED MOBILITY, TRANSFERS, BATHING, ADAPTIVE DRESSING, TOILETING W/ URINAL Therapeutic Activities: UNSUPPORTED SITTING BALANCE, STANDING BALANCE, WW SAFETY, SPINAL PRECAUTONS, ENERGY CONSERVATION, , SELF PACING Pain Reassessment: No significant change in pain during session. Education: Education Provided: Precautions. Plan of care. Safety issues and interventions. Fall protocol. Supervision requirements. Use of adaptive devices. Activities of daily living. Bed mobility. Functional transfers. Home exercise/activity plan. Audience: Patient. Mode: Explanation. Demonstration. Response: Needs practice. Needs reinforcement. Applied knowledge. ASSESSMENT Response to Visit: FAIR TOLERANCE TO ADLS AND MOBILITY, DECREASED STRENGTH, ENDURANCE, BALANCE LIMITING, WOULD BENEFIT FROM A SHORT REHAB STAY TO INCREASE ENDURANCE FOR SAFE HOMEGOING Activity/Participation Problem List and Goals: No updates at this time. Progress Toward Goals: TREATMENT GOAL REVIEW: 1. Complete toilet transfers and tasks with Mod I and good safety awareness. - Not Met: ONGOING 2. Complete LB ADLs with Mod I, safe spinal precautions and use of LB as needed. - Not Met ONGOING 3. Demo ability to stand for 3-5 minutes with Good balance and UE support as needed as a precurser for safe ADL/IADL management upon homegoing. - Not Met ONGOING 4. Complete household functional mobility with Mod I using LRD as needed with safe activity pacing to decrease risk for falls. - Not Met ONGOING Time frame to achieve treatment goal(s): 2 weeks PLAN Treatment Frequency, Duration and Interventions: Occupational Therapy is recommended for : Occupational Therapy is recommended for 6x/week x 2 weeks [facility] PATIENT NAME: MELISSA ELIAS [address] [facility] [address] MEDICAL REC #: [id number] [place] [address] ADMIT DATE: SERVICE DATE: 01/09/21 Occupational Therapy Progress Note ATTENDING PHY: Omari Rabago MD Occupational Therapy treatment is to include: therapeutic exercise, therapeutic activity, graded ADLs/IADLs, patient/family education, energy conservation, safety with AD/AE, discharge planning Occupational Therapy treatment is to include: : Occupational Therapy is recommended for 6x/week x 2 weeks Occupational Therapy treatment is to include: therapeutic exercise, therapeutic activity, graded ADL (more content not included)... Normal [facility] PROG.NOTEon 01-09-2021 PROG.NOTE [facility] Patient Name: MELISSA ELIAS [address] Date of : [address] [place] [address] Unit Number: [id number] Progress Note-Physician Patient Status: REG SDC Attending Doctor: Omari Rabago MD Service Date: 01/09/21 0723 Subjective S: (2 ROS minimum) Sitting up in the chair. Complains of significant back and abdominal pain. States she is having flatus. Mild nausea. Objective (ROS) Nursing Vitals Vital Signs (Last) Result Date Time FiO2 21 01/09 0613 Pulse Ox 100 01/09 0329 B/P 106/48 01/09 0329 O2 Delivery BIPAP 01/09 032 Temp 98.2 01/09 0329 Pulse 94 01/09 0329 Resp 18 01/09 0329 O2 Flow Rate 3 01/08 0807 Physical Exam Neurological / Psychiatric Alert, Orientation X3, Affect Normal Respiratory Decreased breath sounds but no wheezes, rales, rhonchi. Cardiovascular Heart RRR Gastrointestinal Minimally distended. Bowel sounds present. Minimally tender. Limited because of severe obesity. Diagnostic Data: Lab 48hr (CBC/BMP Fishbone) 01/09/21 0545: Whole Bld Glucose 164 H 01/09/21 0349: [Embedded Image Not Available] Anion Gap LESS THAN 3 L, Est GFR ( Amer) 54, Est GFR (Non-Af Amer) 44, BUN/ Creatinine Ratio 24, Glucose 148 H, Total Calcium 7.6 L 01/08/21 2050: Whole Bld Glucose 212 H 01/08/21 1647: Whole Bld Glucose 164 H 01/08/21 1111: Whole Bld Glucose 328 H 01/08/21 0631: Whole Bld Glucose 200 H 01/08/21 0535: [Embedded Image Not Available] Anion Gap 5, Est GFR ( Amer) Greater than 60, Est GFR (Non-Af Amer) Greater than 60 , BUN/Creatinine Ratio 25 H, Glucose 197 H, Total Calcium 8.4 L 01/07/21 1643: Whole Bld Glucose 229 H 01/07/21 1541: Whole Bld Glucose 223 H 01/07/21 1508: Whole Bld Glucose 239 H 01/07/21 1415: Specimen Type ARTERIAL, Sample Site ARTERIAL LINE, Patient Temperature 37.3, pH 7.32 L, pCO2 46.3 H, pO2 205.6 H, HCO3 23.1, Base Excess -3.1 L, ABG O2 Sat (Measured) 97.9, ABG Hemoglobin 13.2, ABG Reduced Hgb 0.9, ABG Carboxyhemoglobin 1.0, ABG Methemoglobin 0.2 L, ABG O2 Capacity 18.1, Leoncio Test UNKNOWN, Sodium 133 L, Potassium 5.4 H, Glucose 259.0 H, Lactate 3.86 H, Patient Equipment ABG FROM OR, FiO2 % 60, Ionized Calcium 1.08 L Lab 24hr (CBC/BMP Fishbone) 01/09/21 0545: Whole Bld Glucose 164 H 01/09/21 0349: [Embedded Image Not Available] Anion Gap LESS THAN 3 L, Est GFR ( Amer) 54, Est GFR (Non-Af Amer) 44, BUN/ Creatinine Ratio 24, Glucose 148 H, Total Calcium 7.6 L 01/08/21 2050: Whole Bld Glucose 212 H 01/08/21 1647: Whole Bld Glucose 164 H 01/08/21 1111: Whole Bld Glucose 328 H Assessment and Plan Conclusion 1. Lumbar adjacent segment disease with spondylolisthesis 2. Morbid obesity with BMI of 50.0-59.9, adult 3. Obstructive sleep apnea (adult) (pediatric) 4. BATOOL treated with BiPAP 5. Diabetes mellitus type 2 in obese On Cora 6:57a Jan 08, 2021 ROJELIO ANDERSON wrote Restart appropriate medications. Patient encouraged to use his BiPAP on a regular basis. We will follow the patient with you. Thank you very much for the consultation. 6. Acute kidney injury Fluids. Monitor kidney function. Adjust medications accordingly. Disclaimer This dictation was created using voice recognition software. Phonetic and/or minor grammatical errors may exist. eSign Date and Time Rojelio Anderson MD Verified/Reviewed by 01/09/21723 [facility] Progress Note-Physician [facility] PROG.ORTHOon 01-09-2021 PROG.[facility] Patient Name: MELISSA ELIAS [employer] [address] Date of : [address] [address] Unit Number: [id number] Progress Note-Ortho Patient Status: ADM IN Attending Doctor: Omrai Rabago MD Service Date: 01/09/211703 Progress Note - Ortho Subjective S: (2 ROS minimum) ambulating to bathroom. passing gas. urinating. Objective Physical Exam stable exam ambulatory with walker Assessment/Plan Conclusion 1. Lumbar adjacent segment disease with spondylolisthesis POD#2 [id number] -monitor bowel function -BiPAP -Blood sugars improved -Lovenox started -Monitor HVAC On Cora 6:50a Jan 08, 2021 OMARI RABAGO wrote POD#1 [id number], L2-3 Ponted osteotomy and TLIF -Pain control. Continue dilaudid at this time. -BiPAP -Blood sugars elevated -Plan to start Lovenox tomorrow -Monitor HVAC -Anticipate >3 nights hospitalization Disclaimer This dictation was created using voice recognition software. Phonetic and/or minor grammatical errors may exist. eSign Date and Time Omari Rabago MD Verified/Reviewed by 01/09/211704 [facility] Progress Note-Ortho [facility] PROG.[facility] Patient Name: MELISSA ELIAS [employer] [address] Date of : [address] [address] Unit Number: [id number] Progress Note-Ortho Patient Status: ADM IN Attending Doctor: Omari Rabago MD Service Date: 01/09/21833 Progress Note - Ortho Subjective S: (2 ROS minimum) Respiratory: Denies shortness of breath or cough. Cardiac: Denies chest pain or palpitations. GI: Does complain of distention, abdominal discomfort. Does report he is passing gas. No nausea or vomiting. No BM as of yet. He is tolerating a diet. : Voiding without difficulty. Musculoskeletal: Reports that the pain to his back is not always under control. Is requesting something else oral to take along with Percocet as opposed to the IV Dilaudid. Denies numbness or tingling to extremities. Denies leg pain. Occasional left hip/thigh area pain when he sitting in a chair for long period of time. Objective Nursing Vitals Vital Signs (Last) Result Date Time Pulse Ox 97 01/09 730 B/P 138/68 01/09 730 Temp 97.8 01/09 730 Pulse 91 01/09 0730 Resp 18 01/09 0730 FiO2 21 01/09 0613 O2 Delivery BIPAP 01/09 0329 O2 Flow Rate 3 01/08 0807 General Appearance Awake alert, pleasant, no acute distress. Sitting up in chair. Physical Exam Cardiovascular - Heart is regular rate by radial pulse. Respiratory - nonlabored, regular, even. Abdomen -large, soft. Nontender. Musculoskeletal - Dressing is with some moderate shadowing. Hemovac in place, 40 cc out overnight of serosanguineous drainage. Pulses are +2. Able to dorsiflex and plantarflex bilateral feet. Sensation intact to light touch. No new or progressive motor or sensory deficits. Neurologic - Patient is alert and appropriate. Diagnostic Data Lab 24hr (CBC/BMP [facility]) 01/09/21 0545: Whole Bld Glucose 164 H 01/09/21 0349: [Embedded Image Not Available] Anion Gap LESS THAN 3 L, Est GFR ( Amer) 54, Est GFR (Non-Af Amer) 44, BUN/ Creatinine Ratio 24, Glucose 148 H, Total Calcium 7.6 L 01/08/21 2050: Whole Bld Glucose 212 H 01/08/21 1647: Whole Bld Glucose 164 H 01/08/21 1111: Whole Bld Glucose 328 H Assessment/Plan Conclusion 1. Lumbar adjacent segment disease with spondylolisthesis Status post L2-3 transforaminal lumbar interbody fusion with intervertebral body device, T10-L3 posterior spinal fusion, L5-S1 posterior spinal fusion, exploration of fusion at L5 -S1, partial removal of L3-S1 and pelvic posterior instrumentation with 3 instrumentation T10-S1 with bilateral pelvic region patient, L2-3 david osteotomy, local bone grafting, allograft and BMP on 01/07/2021. Postop day #2: Vitals stable, afebrile. Does complain of back pain, requesting another oral agent for pain as opposed to the IV Dilaudid which makes him drowsy. Is taking Percocet. Will consider adding Ultram. Complains of some abdominal distention. Is passing gas, is tolerating diet. No nausea or vomiting. He is on Senokot and Colace as well as MiraLAX. Does have as needed agents as well. Encouraged ambulation frequently. PT/OT Monitor drain output. We will plan to remove when less than 30 cc per shift. DVT prophylaxis with SCDs, ambulation, and we will start him on Lovenox 40 mg subcu daily today. Prescription printed and signed to continue for 2 weeks. Discussed this with the patient as well. He verbalized understanding. Will discuss with and update Dr. Rabago. 2. Morbid obesity with BMI of 50.0-59.9, adult Stable Problems Problems not specifically addressed in the above plan are stable and do not warrant adjustment of the current method of therapy. Collaborating Physician Omari Rabago MD Physician Attestation Statement of Attestation I confirm that I have evaluated the patient, reviewed the history and physical, medications, diagnostic results, physical exam, assessment and plan of care of the patient. Disclaimer This dictation was created using voice recognition software. Phonetic and/or minor grammatical errors may exist. eSign Date and Time Palmira Lewis W[employer] PROGRAM MANAGER Verified/Reviewed by 01/12/21 0824 [facility] Progress Note-Ortho [facility] PTPNon 01-09-2021 PT Progress Note [facility] PTPN Physical Therapy Inpatient Treatment Note Medical Diagnosis: s/p L2-3 TLIF, T10-L3 PLIF, L5-S1 PLIF, with partial removal L3-S1 and pelvic posterior instrumentation with reinstrumentation T10-S1 and L2-3 david [address] Dr[address] Rabago on 01/08/21 Demographics: Age: 55Y Gender: Male Primary Language: German Preferred Language: German Rehabilitation Precautions/Restrictions: Spinal precautions, log roll, hemovac SUBJECTIVE Patient Report: I am doing okay, lots of pain. Patient/Caregiver Goals: To get stronger Pain: Patient currently has pain. Patient reports a pain level of 10 out of 10. Interventions: Repositioned patient. OBJECTIVE General Observation: Pt up in chair. pleasant and agreeable to therapy. Functional Activities After Today's Session: Transfers: Patient transferred sit to/from stand requiring MIN A of 1 person. Patient used the following equipment: Arms of chair. Pt able to achieve sit<>stand x2 to FWW MIN Ax1. Pt required increased time to complete d/t pain level. Locomotion/Ambulation: Patient was contact guard with gait/ambulation of 1 person for 40ft x2 . Patient requires the following assistive device(s): Rolling walker. Pt able to ambulate with FWW CGA for safety. Pt presents with decreased step length, step height, narrow AZALIA, slow umm. Pt required x1 verbal cue for FWW manangement. Pt requiered increased time to complete. Stairs: Not assessed. Curb Negotiation: Not assessed. AM-PAC Basic Mobility: Turning Over in Bed: A lot of difficulty Sitting/Standing Chair with Arms: A little difficulty Lying on Back to Sitting on Side of Bed: A lot of difficulty Moving To/From Bed to Chair: A little help needed Walking in Hospital Room: A little help needed Climbing 3-5 Steps with Railing: A lot of help needed Raw Score = 15 , AM-PAC t-Scale Score = 39.45 and G-Code Modifier = CK Vital Signs: [facility] PATIENT NAME: MELISSA ELIAS [address] [facility] [address] MEDICAL REC #: [id number] [place] [address] ADMIT DATE: 01/09/21 SERVICE DATE: 01/09/21 Physical Therapy Progress Note ATTENDING PHY: Omari Rabago MD Not assessed. Interventions: Gait Training: functional transfer training, education on proper transfer techniques, standing balance with FWW, gait training with FWW, education on FWW use/safety, safety awareness, review/education on precautions, education on PoC and d/c planning, education on importance of mobility for improved overall wellbeing. Pain Reassessment: Decrease in pain during session. Pt verbalized decrease in pain from 10/10 to 8/10 at procedure site. Education: Education Provided: Precautions. Plan of care. Pain management. Functional transfers. Safety. Equipment. Gait. Audience: Patient. Mode: Explanation. Demonstration. Response: Verbalized understanding. Demonstrated skill. Needs practice. Needs reinforcement. ASSESSMENT Response to Visit: Pt tolerated session fair. Pt is requiring assist for all aspects of funtional transfers and ambulation throughout session. Pt is requiring verbal/tactile cues for FWW manangement and safety. Pt presents with tremors/shaking that he states is normal. Pt does fatigue quickly requiring increased time for rest breaks. Pt is expected to benefit from continued therapy >60 mins to address deficits. Activity/Participation Problem List and Goals: No updates at this time. Progress Toward Goals: TREATMENT GOAL REVIEW: 1. Complete 80 feet supv ww - Not Met: ongoing 2. Complete transfers supv - Not Met ongoing 3. Complete verbalization of HEP indep - Not Met ongoing 4. Complete 3 steps SBA - Not Met: ongoing Time frame to achieve treatment goal(s): 2 weeks PLAN Treatment Frequency, Duration and Interventions: Physical Therapy is recommended for BID for three days Physical Therapy treatment is to include: Gait training, transfer training, balance, functional tasks, HEP, thera act, thera exercise, demonstration and performance of stair negotiation, education on home going safety/recommendations, educated on fall risk, education on mobility benefits, educate on ice management, educate on car transfer, and educated on pain control through deep breathing/ice/mobility/el evated and pain medications. Recommended Physical Therapy Follow Up: Upon acute care discharge, the following [facility] PATIENT NAME: MELISSA ELIAS [address] [facility] [address] MEDICAL REC #: [id number] [place] [address] ADMIT DATE: 01/09/21 SERVICE DATE: 01/09/21 Physical Therapy Progress Note ATTENDING PHY: Omari Rabago MD is currently recommended: Inpatient Physical Therapy, AT LEAST 60 minutes per day. Patient would tolerate and benefit from multidisciplinary inpatient rehabili (more content not included)... Normal [facility] BMPon 01-08-2021 Anion gap [Moles/Vol] 5 mmol/L Normal 5-16 [facility] Comment on above: Order Comment: Campu s: M Performed By: #### L 500.56471, L500.03185, L500.69391, L500.24595 #### [facility] [address] [place] [address] Calcium [Mass/Vol] 8.4 mg/dL Low 8.5-10.5 [facility] Comment on above: Order Comment: Campu s: M Result Comment: NOTE NEW NORMAL RANGE DUE TO REAGENT CHANGE Performed By: #### L 500.97084, L500.79988, L500.93796, L500.08717 #### [facility] [address] [place] [address] Chloride [Moles/Vol] 101 mmol/L Normal 98-107 [facility] Comment on above: Order Comment: Campu s: M Performed By: #### L 500.85662, L500.00666, L500.22186, L500.34491 #### [facility] [address] [place], [place] [id number] CO2 [Moles/Vol] 29.0 mmol/L Normal 21-32 [facility] Comment on above: Order Comment: Campu s: M Performed By: #### L 500.12233, L500.13466, L500.13989, L500.93731 #### [facility] [address] [place] [address] Creatinine [Mass/Vol] 0.86 mg/dL Normal 0.5-1.4 [facility] Comment on above: Order Comment: Jeremieu s: M Result Comment: NOTE NEW NORMAL RANGE DUE TO REAGENT CHANGE Patients receiving either N-Acetylcysteine (NAC) or Metamizole prior to venipuncture, may have falsely depressed results. Performed By: #### L 500.80115, L500.31925, L500.28748, L500.79496 #### [facility] [place] [address] Glucose [Mass/Vol] 197 mg/dL High 70-100 [facility] Comment on above: Order Comment: Jeremieu s: M Result Comment: 70-1 00- Normal Fasting; 100-125 Impaired Fasting; greater than 126 on more than one result- Diabetes. ADA guidelines. Results may be falsely elevated after the administration of Sulfapyridine. Results may be falsely depressed after the administration of Sulfasalazine. Performed By: #### L 500.87622, L500.68454, L500.71512, L500.23426 #### [facility] [place] [address] Potassium [Moles/Vol] 4.3 mmol/L Normal 3.5-5.1 [facility] Comment on above: Order Comment: Jeremieu s: M Performed By: #### L 500.04358, L500.11163, L500.19010, L500.54207 #### [facility] [place] [address] Sodium [Moles/Vol] 135 mmol/L Low 136-145 [facility] Comment on above: Order Comment: Jeremieu s: M Performed By: #### L 500.23717, L500.88159, L500.86109, L500.70587 #### [facility] [place] [address] Urea nitrogen [Mass/Vol] 22 mg/dL Normal 7-26 [facility] Comment on above: Order Comment: Campu s: M Performed By: #### L 500.36755, L500.66456, L500.75623, L500.82963 #### [facility] [address] [place] [address] Urea nitrogen/Creatinine [Mass ratio] 25 mg/mg High 15-24 [facility] Comment on above: Order Comment: Campu s: M Performed By: #### L 500.14050, L500.13146, L500.07882, L500.56292 #### [facility] [address] [place], [place] [address] GFR ESTon 01-08-2021 IF AMER Greater than [address] [facility] Comment on above: Order Comment: Campu s: M Performed By: #### L 500.59423, L500.18376, L500.04064, L500.09685 #### [facility] [address] [place], [place] [address] IF non-AFR AMER Greater than [address] [facility] Comment on above: Order Comment: Campu s: M Performed By: #### L 500.90205, L500.76482, L500.85962, L500.82766 #### [facility] [address] [place], [place] [address] GLUCOSE METERon 01-08-2021 Glucose [Mass/Vol] 212 mg/dL High 85-125 [facility] Glucose [Mass/Vol] 164 mg/dL High 85-125 [facility] Glucose [Mass/Vol] 328 mg/dL High 85-125 [facility] Glucose [Mass/Vol] 200 mg/dL High 85-125 [facility] Hematocrit (Bld) [Volume fraction] 34.9 % Low 41.0-53.0 [facility] Comment on above: Order Comment: Campu s: M Performed By: #### L 500.70025, L500.66779, L500.12141, L500.78003 #### [facility] [address] [place] [address] Hemoglobin (Bld) [Mass/Vol] 11.5 g/dL Low 13.5-17.5 [facility] Comment on above: Order Comment: Jeremieu s: M Performed By: #### L 500.11976, L500.44597, L500.40486, L500.37584 #### [facility] [address] [place] [address] [facility]-H&P Normal [facility] HP.[facility] Patient Name: MELISSA ELIAS [address] [facility] [address] Date of : [address] [place], [place] [address] Unit Number: [id number] CONSULTATION-HandP Patient Status: REG [facility] Attending Doctor: Omari Rabago MD Service Date: 01/08/21 0651 History of Present Illness Referring Physician Omari Rabago MD Consulted Provider Rojelio Anderson MD Source of Information Patient, Chart Reason for Consult Postoperative medical evaluation and management Living Situation Home - Independent History of Present Illness 55-year-old gentleman underwent spinal surgery. Preoperatively cleared by his physician in the [place], [place] area. Past Medical/Surgical Hx Past Medical History Obstructive sleep apnea, diabetes, morbid obesity, hyperlipidemia, hypertension Past Surgical History Multiple orthopedic surgeries as noted in the chart. Family/Social History Family History Review Noncontributory in this situation Substances Reports use of: Alcohol. Denies use of: Tobacco, Recreational Drugs. Structured Exercise No Advance Directives Advance Directives Full Code Allergies/Home Medications Allergies Coded Allergies: NO KNOWN ALLERGENS (11/14/20) Home Medications Cholecalciferol (Vitamin D3) (Vitamin D3) 50 MCG TABLET 50 MCG PO QDAY, Ref 0 (Reported ) LAST DOSE 12/24/20 Entered as Reported by MEGAN ROSS on 11/17/20 0185 Last Action: Held on 01/08/21 0625 by ROJELIO ANDERSON Docusate Sodium* (Colace 100MG Cap*) 100 MG CAPSULE 100 MG PO BID, Ref 0 (Reported) Entered as Reported by MEGAN ROSS on 11/17/20 1236 Last Action: Continued on 01/08/21623 by ROJELIO ANDERSON DULoxetine HCL* (Cymbalta 20MG Cap*) 20 MG CAPSULE.DR 20 MG PO QDAY, Ref 0 (Reported) Entered as Reported by MEGAN ROSS on 11/17/20 1233 Last Action: Continued on 01/08/21623 by ROJELIO ANDERSON glipiZIDE* (Glucotrol 10MG Tab*) 10 MG TABLET 10 MG PO QDAY.30AC, Ref 0 (Reported) Entered as Reported by MEGAN ROSS on 11/17/20 1251 Last Action: Continued on 01/08/21624 by ROJELIO ANDERSON Multivitamin* (Multiple Vitamins Daily Tab*) 1 EACH TABLET 1 UDTAB PO QDAY, Ref 0 ( Reported) LAST DOSE 12/24/20 Entered as Reported by MEGAN ROSS on 11/17/20 1235 Last Action: Held on 01/08/21624 by ROJELIO ANDERSON Olmesartan/Hctz (Benicar Hct 40-25 MG Tab) 1 EACH TABLET 1 EACH PO QDAY, Ref 0 ( Reported) Entered as Reported by MEGAN ROSS on 11/17/20 1232 Last Action: Continued on 01/08/21623 by ROJELIO ANDERSON OxyCODONE* (Oxyir 5MG Tab*) 5 MG TABLET 7.5 MG PO Q4H, Ref 0 (Reported) Entered as Reported by TRINH REYES on 01/07/21 0716 Last Action: Held on 01/08/21623 by ROJELIO ANDERSON Polyethylene Glycol 3350* (Miralax Packet*) 17 GM POWD.PACK 17 GM PO QDAY, Ref 0 ( Reported) In at least 8 oz water or juice. Entered as Reported by MEGAN ROSS on 11/17/20 1237 Last Action: Continued on 01/08/21624 by ROJELIO ANDERSON proPRANolol HCL* (Inderal 10MG Tab*) 10 MG TABLET 10 MG PO BID, Ref 0 (Reported) Entered as Reported by MEGAN ROSS on 11/17/20 1231 Last Action: Continued on 01/08/21 0624 by ROJELIO ANDERSON [RELIEF FACTOR] 1 PO QDAY, Ref 0 (Reported) LAST DOSE 12/24/20 Entered as Reported by MEGAN ROSS on 11/17/20 1236 Last Action: Held on 01/08/21 06 by ROJELIO ANDERSON TiZANidine HCL* (Zanaflex 4MG Tab*) 4 MG TABLET 4 MG PO TID, Ref 0 (Reported) Entered as Reported by MEGAN ROSS on 11/17/20 1232 Last Action: Continued on 01/08/21 06 by ROJELIO ANDERSON Inpatient Medications Medications Current Sig/Katelynn Start time Last Medication Dose Route Stop Time Status Admin Acetaminophen 650 MG Q6HPRN PRN 01/07 1630 AC (TYLENOL TAB) PO Bisacodyl 10 MG [id number] PRN 01/07 1630 AC (DULCOLAX RECT) RC Docusate Sodium 100 MG BID 01/08 09 AC (COLACE CAP) PO Duloxetine HCl 20 MG QDAY 01/08 0900 AC (CYMBALTA CAP) PO Glipizide 10 MG QDAY.30AC 01/08 0730 AC (GLUCOTROL TAB) PO Hydrochlorothiazide 25 MG QDAY 01/08 0900 AC (hydroDIURIL tab) PO Hydromorphone HCl 0.5 MG Q2HPRN PRN 01/07 1630 AC (DILAUDID D.SYR) IV Hydromorphone HCl 1 MG Q2HPRN PRN 01/07 1630 AC 01/08 (DILAUDID D.SYR) IV 0650 Insulin Human Lispro See Dose [facility] 01/08 0800 AC (humaLOG/novoLOG PEN) Insts (1) SC Naloxone HCl 0.08 MG [id number] PRN 01/07 1630 AC (NARCAN AMP) IV Olmesartan 40 MG QDAY 01/08 0900 AC (BENICAR TAB) PO Ondansetron HCl 4 MG Q6HPRN PRN 01/07 1630 AC (ZOFRAN VIAL) IV Oxycodone/ 1 UDTAB Q4HPRN PRN 01/07 1630 AC Acetaminophen PO (percoCET-5/325 TAB) Oxycodone/ 2 UDTAB Q4HPRN PRN 01/07 1630 AC 01/08 Acetaminophen PO 0527 (percoCET-5/325 TAB) Polyethylene Glycol 17 GM QDAY 01/08 0900 AC (MIRALAX PACKT) PO Povidone Iodine 1 EACH ONCALL PRN 01/07 0700 (more content not included)... [facility] OTARon 01-08-2021 OT Assessment Report Normal [facility] PROG.ORTHOon 01-08-2021 PROG.ORTHO [facility] Patient Name: MELISSA ELIAS [address] Date of : [address] [place] [address] Unit Number: [id number] Progress Note-Ortho Patient Status: REG [facility] Attending Doctor: Omari Rabago MD Service Date: 01/08/21 0647 Progress Note - Ortho Subjective S: (2 ROS minimum) back pain. on BiPAP. receiving dilaudid, percocet through the night. Objective Physical Exam stable LE exam alert, oriented on BiPAP respirations non-labored Assessment/Plan Conclusion 1. Lumbar adjacent segment disease with spondylolisthesis POD#1 [id number], L2-3 Ponted osteotomy and TLIF -Pain control. Continue dilaudid at this time. -BiPAP -Blood sugars elevated -Plan to start Lovenox tomorrow -Monitor HVAC -Anticipate >3 nights hospitalization Disclaimer This dictation was created using voice recognition software. Phonetic and/or minor grammatical errors may exist. eSign Date and Time Omari Rabago MD Verified/Reviewed by 01/08/21 0650 [facility] Progress Note-Ortho [facility] PTARon 01-08-2021 PT Assessment Report [facility] ABGPEGLAon 01-07-2021 ABG BE -3.1 MML/L Low -2.0-2.0 [facility] Comment on above: Performed By: #### L 500.66497, L500.08864, L500.50108, L500.60067 #### [facility] [address] [place] [address] ABG COHBA 1.0 % Normal 0-10 [facility] Comment on above: Performed By: #### L 500.68199, L500.69903, L500.68379, L500.64214 #### [facility] [place] [address] ABG GLU 259.0 MG/DL High 60-80 [facility] Comment on above: Performed By: #### L 500.72069, L500.92067, L500.77671, L500.86211 #### [facility] [address] [place] [address] ABG MET 0.2 % Low 0.4-1.5 [facility] Comment on above: Performed By: #### L 500.62560, L500.04051, L500.82309, L500.72128 #### [facility] [address] [place] [address] ABG O2 CAPACITY 18.1 mL/dL Normal [facility] Comment on above: Performed By: #### L 500.69622, L500.04494, L500.88986, L500.45755 #### [facility] [address] [place] [address] ABG O2HB SAT 97.9 % Normal 90-100 [facility] Comment on above: Performed By: #### L 500.32007, L500.55497, L500.20346, L500.01797 #### [facility] [address] [place] [address] ABG PCO2 46.3 MMHG High 35-45 [facility] Comment on above: Performed By: #### L 500.01686, L500.97379, L500.27841, L500.36091 #### [facility] [address] [place] [address] ABG PH 7.32 Low 7.35-7.45 [facility] Comment on above: Performed By: #### L 500.21052, L500.44924, L500.61933, L500.38769 #### [facility] [address] [place] [address] ABG PO2 205.6 MMHG High 80-100 [facility] Comment on above: Performed By: #### L 500.96866, L500.03561, L500.16666, L500.05774 #### [facility] [address] [place] [address] ABG REDUCED HGB 0.9 % Normal 0-5 [facility] Comment on above: Performed By: #### L 500.48032, L500.27424, L500.28654, L500.36844 #### [facility] [address] [place] [address] LEONCIO TEST UNKNOWN Normal [facility] Comment on above: Performed By: #### L 500.18849, L500.68738, L500.72448, L500.51538 #### [facility] [address] [place] [address] Body temperature 99.14 [degF] Normal [facility] Comment on above: Performed By: #### L 500.58306, L500.24597, L500.47288, L500.41244 #### [facility] [address] [place] [address] EQUIPMENT ABG FROM OR Normal [facility] Comment on above: Performed By: #### L 500.29993, L500.39482, L500.65105, L500.01825 #### [facility] [address] [place], [place] [id number] FIO2 60 % Normal [facility] Comment on above: Performed By: #### L 500.10372, L500.96819, L500.90045, L500.12390 #### [facility] [address] [id number] HCO3 (Bld) [Moles/Vol] 23.1 mmol/L Normal 22-26 M [facility] Comment on above: Performed By: #### L 500.06389, L500.11774, L500.58708, L500.13480 #### [facility] [place] [address] Hemoglobin (Bld) [Mass/Vol] 13.2 g/dL Normal 10-16 [facility] Comment on above: Performed By: #### L 500.48305, L500.12903, L500.37421, L500.93964 #### [facility] [address] [place] [address] IONIZED CA 1.08 MMOL/L Low 1.13-1.32 [facility] Comment on above: Performed By: #### L 500.02316, L500.15699, L500.02253, L500.37269 #### [facility] [place] [address] LACTATE BLOOD 3.86 MMOL/L High 0.40-2.00 [facility] Comment on above: Performed By: #### L 500.45354, L500.82273, L500.63921, L500.64726 #### [facility] [address] [place], [place] [address] Potassium [Moles/Vol] 5.4 mmol/L High 3.5-5.0 [facility] Comment on above: Performed By: #### L 500.78634, L500.25160, L500.59968, L500.46842 #### [facility] [address] [place] [address] SAMPLE SITE ARTERIAL LINE Normal [facility] Comment on above: Performed By: #### L 500.49233, L500.52118, L500.03067, L500.49770 #### [facility] [address] [place] [address] SAMPLE TYPE ARTERIAL Normal [facility] Comment on above: Performed By: #### L 500.14639, L500.09877, L500.61230, L500.60921 #### [facility] [place] [address] Sodium [Moles/Vol] 133 mmol/L Low 136-148 [facility] Comment on above: Performed By: #### L 500.16834, L500.18558, L500.48932, L500.48713 #### [facility] [address] [place] [address] EKGon 01-07-2021 Electrocardiogram Procedure Date and T jimmy: 01/07/211819 Test Reason : RT Blood Pressure : / mmHG Vent. Rate : 078 BPM Atrial Rate : 078 BPM P-R Int : 204 ms QRS Dur : 154 ms QT Int : 450 ms P-R-T Axes : 059 -82 027 degrees QTc Int : 513 ms Normal sinus rhythm Left axis deviation Right bundle branch block Inferior infarct , age undetermined Abnormal ECG No previous ECGs available Confirmed by TOÑITO NAGY A. ([id number]) on 01/07/2021 8:03:10 PM Referred By: Karl Blair Confirmed By:Sammy NAGY M.D.FACC Zach DDandT: 01/07/211819 TDandT: [facility] PATIENT NAME: MELISSA ELIAS [address] [place] [address] Dr. Bran MEDICAL REC #: [id number] [place] [address] ADMIT DATE: DISCHARGE DATE: ATTENDING PHY: Omari Rabago MD ELECTROCARDIOGRAM REPORT CLB cc: [facility] PATIENT NAME: MELISSA ELIAS [address] [place] [address] Dr. Bran MEDICAL REC #: [id number] [place] [address] ADMIT DATE: DISCHARGE DATE: ATTENDING PHY: Omari Rabago MD ELECTROCARDIOGRAM [facility]PORT [facility]PAIN [facility]GTon 01-07-2021 FLUOROSCOPY IN OR/PAIN MGT OR SURGICAL CASSIE ASSIST, FLUOROSCOPY IN OR/PAIN MGT Ordering Physician: Omari Rabago MD 01/07/2021 2:24 PM FLUOROSCOPY IN OR WITH 3-D OR SURGICAL NAVIGATION ASSISTANTS Clinical Statement: Stenosis T10 to pelvis Comparison: None FINDINGS: Operative fluoroscopy was provided to Dr. Rabago who performed the procedure. Use of routine fluoroscopy and 3-D fluoroscopy was performed in the OR. 5.87 seconds of 3-D fluoroscopic time was utilized. 9.2 seconds of routine fluoroscopy was utilized. 5 routine fluoroscopic images were submitted. A 3-D fluoroscopic data set was submitted. IMPRESSION: Report generated to document fluoroscopic time utilized in the OR. This report was electronically signed by Ellyn Michelle MD 01/07/2021 3:11 PM Reported By: ELLYN MICHELLE M.D. Signed By: ELLYN MICHELLE M.D. Normal [facility] GLUCOSE METERon 01-07-2021 Glucose [Mass/Vol] 229 mg/dL High 85-125 [facility] Glucose [Mass/Vol] 223 mg/dL High 85-125 [facility] Glucose [Mass/Vol] 239 mg/dL High 85-125 [facility] Glucose [Mass/Vol] 164 mg/dL High 85-125 [facility] OR SURGICAL CASSIE ASSISTon OR SURGICAL CASSIE ASSIST OR SURGICAL CASSIE A SSIST, FLUOROSCOPY IN OR/PAIN MGT Ordering Physician: Omari Rabago MD 01/07/2021 2:24 PM FLUOROSCOPY IN OR WITH 3-D OR SURGICAL NAVIGATION ASSISTANTS Clinical Statement: Stenosis T10 to pelvis Comparison: None FINDINGS: Operative fluoroscopy was provided to Dr. Rabago who performed the procedure. Use of routine fluoroscopy and 3-D fluoroscopy was performed in the OR. 5.87 seconds of 3-D fluoroscopic time was utilized. 9.2 seconds of routine fluoroscopy was utilized. 5 routine fluoroscopic images were submitted. A 3-D fluoroscopic data set was submitted. IMPRESSION: Report generated to document fluoroscopic time utilized in the OR. This report was electronically signed by Ellyn Michelle MD 01/07/2021 3:11 PM Reported By: ELLYN MICHELLE M.D. Signed By: ELLYN MICHELLE M.D. Normal [facility] OR.OPRPTon 01-07-2021 Operative Report Normal [facility] OR.OPRPT [facility] Patient Name: MELISSA ELIAS [address] Date of : 69 [place], [place] [address] Unit Number: [id number] Operative Report Patient Status: REG [facility] Attending Doctor: Omari Rabago MD Service Date: 01/07/21 1658 See Addendum Operative Report - ORTHO Procedure Date: 01/07/21 Procedure: Preoperative diagnosis: 1. Lumbar spinal stenosis with neurogenic claudication 2. L2-3 adjacent segment disease with spondylolisthesis 3. Previous L3-S1 posterior spinal fusion with suspected L5-S1 pseudoarthrosis Postoperative diagnosis: 1. Lumbar spinal stenosis with neurogenic claudication 2. L2-3 adjacent segment disease with spondylolisthesis 3. Previous L3-S1 posterior spinal fusion with L5-S1 pseudoarthrosis Operation: 1. L2-3 transforaminal lumbar interbody fusion with intervertebral body device 2. T10-L3 posterior spinal fusion 3. L5-S1 posterior spinal fusion 4. Exploration of fusion L5-S1 5. Partial removal L3-S1 and pelvic posterior instrumentation with reinstrumentation T10- S1 with bilateral pelvic re-instrumentation 6. L2-3 david osteotomy 7. Application and removal of stereotactic array 8. Local bone graft and allograft including BMP 9. Use of microscope Surgeon: Omari Rabago MD Indications: Patient presented with progressive neurogenic claudication and progressive lower extremity weakness. Preoperative imaging showed severe spinal stenosis at L2-3, L2-3 retrolisthesis , previous posterior spinal fusion and laminectomy L3 to pelvis, and bilateral hardware fracture at L5-S1. Preoperatively, we discussed risks, benefits, complications, and alternatives of surgical treatment. The patient expressed understanding and elected to proceed. Operative Note: The patient was identified in the preoperative holding area. The operative site was marked. All questions were answered. The patient was transported to the surgical suite. General anesthesia was administered. Neuromonitoring leads were applied. A bartlett catheter was placed. A timeout was taken according to protocol. The patient received preoperative intravenous antibiotics. Antibiotics were redosed as appropriate. The patient was positioned prone on the Oracio table. All bony prominences were padded. The abdomen hung free. The legs were extended. The patient was prepped and draped in standard fashion. A midline skin incision was made followed by electrocautery down to the level of the fascia. The fascia and paraspinal muscles were elevated off the operative levels bilaterally. The bilateral posterior instrumentation from L3-S1 including iliac bolts was exposed. The setscrews were removed. The fractured sharif and lateral side connector was removed. The previous fusion from L3-S1 was exposed in the posterior lateral gutter. The transverse process is of L1 and L2 were exposed. A stereotactic array was applied to the T9 spinous process. An intraoperative 3D fluoroscopic scan was then performed. Intraoperative scan was used to place pedicle instrumentation. Deep retractors were placed. Pedicle screws were placed bilaterally from T10-L2. Screws were placed with the assistance of intraoperative navigation. A airplane pilot photogrammetry hole was created with a bur. This was followed with a gearshift awl and tap. Screws were checked with triggered EMG. Screws tested within acceptable limits. The left L3 pedicle screw was exchanged for a longer screw to facilitate hookup. The partially fused bilateral L5-S1 facets were exposed bilaterally. Using intraoperative navigation, a guided bur was used to make several passes through the L5-S1 facet. The surrounding bone was decorticated with a bur. The stereotactic array was removed. Next the david osteotomy was performed at the L2-3 segment as follows. At the L2-3 segment, the bilateral L2 intra-articular facets and lamina were removed approximately to the level of the L2 pedicle. The ligamentum flavum at L2-3 was removed. The cephalad aspect of the L3 lamina was removed to the level of the L3 pedicle. The superior articular process of L3 was removed in the area of the foraminal extraforaminal zone. A temporary sharif was placed at L2-3. Distraction was applied across the L2-3 segment using the temporary sharif. The microscope was brought into the field. The lateral aspect of the thecal sac was identified. The thecal sac was mobilized medially from both sides. Overlying epidural veins were coagulated bipolar. A bilateral annular incision was made with a #11 blade. A nerve root retractor was used to protect the thecal sac and nerve roots. The microscope was removed from the field after mobilizing the thecal sac. Working alternately from the right and left sides, the disc space was entered. A combination of lewis, pituitaries, and curettes were used to remove the disc and cartilaginous endplates. Meticulous endplate preparation was performed. (more content not included)... [facility] PORTABLE CHESTon 01-07-2021 PORTABLE CHEST PORTABLE CHEST CLINICAL HISTORY: S/P CENTRAL LINE PLACEMENT COMPARISON: November 19, 2020 RESULT: Right internal jugular central venous catheter with the tip near the proximal SVC. No pneumothorax. No focal consolidation. Cardiomegaly. Mild pulmonary edema. IMPRESSION: Right internal jugular central venous catheter placement. Mild pulmonary edema. This report was electronically signed by Rea Whitney MD 01/07/2021 6:53 PM Reported By: REA WHITNEY MD Signed By: REA WHITNEY MD [facility] SURGon 01-07-2021 SURG ----- Patient: MELISSA ELIAS SPECIMEN: [id number] Collection Date: 01/07/21 Received: 01/08/21 Status: MIN Ramos Dr.: Omari Rabago MD Ph# Othr. 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 Explanted hardware: Explanted hardware. Gross only. GROSS DESCRIPTION The specimen is received in formalin and labeled with the patient's name, ID and designated explanted hardware, is a 7.5 x 3.5 x 0.9 cm aggregate of silver colored and blue metal-like rods. Two of these specimens are focally threaded. Also received is a 7.0 x 1.3 x 1.1 cm hobbs-silver colored focally threaded object. Also received are 12 dark hobbs-blue threaded objects that range from 0.6 to 0.9 cm in greatest dimension. No tissue is identified. No sections are submitted. Gross only. BA/pm 01/08/21 MICROSCOPIC DESCRIPTION Gross examination only. COPIES TO: Omari Rabago MD, Lisa A DO Signed Verified/Reviewed by MINDA TOTH MD 01/08/21 This dictation was created using voice recognition software. Phonetic and/or minor grammatical errors may exist. [facility] NAME: MELISSA ELIAS Pathology and Laboratory Medicine UNIT#: [id number] LOC: [facility] Housekeeper: Coco Interiano M.D. [id number] [address] : 69 AGE/SEX: 55/M ORD.Omari Renner MD END OF REPORT Normal [facility] 01-07-2021 ABO and Rh group Nom (Bld) Blood group A Rh(D) positive Normal [facility] Comment on above: Order Comment: Miles ocampo: Jessica ROUTINE COVIDon 01-05-2021 SARS-CoV-2 (COVID-19) RNA ABIGAIL+probe Ql (Unsp spec) Negative Normal NEGATIVE [facility] Comment on above: Result Comment: Nega tive results do not preclude SARS-CoV-2 infection and should not be used as the sole basis for patient management decisions. Negative results must be combined with clinical observations, patient history, and epidemiological information. This test has been authorized by the FDA under the Emergency Use Authorization (EUA) for use by authorized laboratories. This test was performed by PCR. Performed By: #### L 500.27669, L500.61016, L500.17878, L500.78342 #### [facility] [place] [address] [id number] 12-08-2020 SARS-CoV-2 (COVID-19) RNA ABIGAIL+probe Ql (Unsp spec) Negative Normal Negative [facility] Comment on above: Result Comment: Nega tive results do not preclude SARS-CoV-2 infection and should not be used as the sole basis for patient management decisions. Negative results must be combined with clinical observations, patient history, and epidemiological information. This test has been authorized by the FDA under the Emergency Use Authorization (EUA) for use by authorized laboratories. This test was performed by PCR. Performed By: #### L 500.60424, L500.25199, L500.90766, L500.00932 #### [facility] [place] [address] CT LUMBAR SP WO CONon 2020 CT LUMBAR SP WO CON EXAMINATION: CT LUMB AR SP WO CON CLINICAL HISTORY: Low back pain TECHNIQUE: Spiral, high resolution axial images were obtained from the thoracolumbar junction to the sacrum with sagittal and coronal planar reconstructions. MQ: [id number] CT Radiation dose: Integrated Dose-Length Product (DLP) for this visit = 1073.58 mGy*cm. COMPARISON: None. RESULT: Counting reference: Lumbosacral junction. For the purposes of this report, L4-5 is considered the level of the iliac crest and assume there are 5 lumbar-type vertebrae. Anatomic variant: None. Cooler Room Worker (topogram) images: Right total hip arthroplasty. No additional findings. Alignment: Dextroconvex curvature of the lumbar spine with apex centered at L3. Retrolisthesis grade 1 of L2 on L3. Bone marrow /fracture: Extensive postoperative findings of dorsal instrumented fusion with bilateral transpedicular screws and interconnecting rods at L3-S1 and bilateral iliac fixation screws. The hardware appear intact. No clear findings of periprosthetic lucency to suggest loosening. There is fusion across the L4-L5 disc space. Partial bony fusion across the right posterior elements at L3-S1. Partial bony fusion across the left L3-L4 posterior elements. Severe degenerative disc space narrowing and disc desiccation at the L2-L3 level with vacuum disc phenomenon and marked endplate degenerative changes. Additional severe degenerative disc space narrowing at T12-L1 with endplate sclerosis and vacuum disc phenomenon. Prior laminotomies at L3-L5. Developmentally narrow canal with short pedicles. Paraspinal soft tissues: Streak artifact from hardware partially obscure the canal and foramina at the L3-S1 levels. Disruption of the dorsal paraspinal soft tissue planes from posterior instrumented fusion and laminotomies. Lower thoracic spine: The visualized lower thoracic bony canal and foramina are patent. T12-L1: Disc height loss and posterior disc osteophyte complex with mild canal stenosis. No significant neural foraminal stenosis. L1-L2: Mild canal stenosis from facet and ligamentous hypertrophy with mild disc bulge. Mild left neural foraminal stenosis. The right neural foramen is patent. L2-L3: Spondylolisthesis with degenerative disc disease, facet arthropathy and ligamentous hypertrophy result in severe canal stenosis. Moderate bilateral neural foraminal stenoses. L3-L4: Decompressed canal. Mild to moderate bilateral neural foraminal stenoses from facet hypertrophy, slightly worse on the right. L4-L5: Decompressed canal. Bony foramina appear patent within constraints of metal artifact. L5-S1: Disc height loss and facet arthropathy result in moderate to severe bilateral neural foraminal stenoses. No significant canal stenosis. Sacrum and iliac wings: Degenerative changes in the bilateral sacroiliac joints. The visualized sacrum and iliac wings are within normal limits. IMPRESSION: Extensive postoperative findings of decompression laminectomies from L2-L5 and posterior instrumented fusion from L2-S1. Interbody fusion at L4-L5 and partial dorsal bony fusion at the instrumented levels. Intact hardware without findings to suggest loosening. Severe degenerative disc disease, facet arthropathy at L2-L3 with retrolisthesis result in moderate to severe canal neural foraminal stenoses. Facet arthropathy and disc disease at L5-S1 result in moderate to severe bilateral neural foraminal stenoses. Additional mild canal and neural foraminal stenoses as detailed. Anatomic Thoracic/Lumbar Variant: None. L4-5 is considered the level of the iliac crest and assume there are 5 lumbar-type vertebrae. This report was electronically signed by Olesya Guzmán MD 11/27/2020 5:01 PM Reported By: OLESYA GUZMÁN MD Signed By: OLESYA GUZMÁN MD Normal [facility] ABO/RH NCon 11-19-2020 ABO and Rh group Nom (Bld) Blood group A Rh(D) positive Normal [facility] Comment on above: Order Comment: Campu s: M BMPon 11-19-2020 Anion gap [Moles/Vol] 6 mmol/L Normal 5-16 [facility] Comment on above: Order Comment: Campu s: M Performed By: #### L 500.51783, L500.15916, L500.03682, L500.65207 #### [facility] [place] [address] Calcium [Mass/Vol] 9.0 mg/dL Normal 8.5-10.5 [facility] Comment on above: Order Comment: Campu s: M Result Comment: NOTE NEW NORMAL RANGE DUE TO REAGENT CHANGE Performed By: #### L 500.59801, L500.29620, L500.14685, L500.36065 #### [facility] [place] [address] Chloride [Moles/Vol] 100 mmol/L Normal 98-107 [facility] Comment on above: Order Comment: Campu s: M Performed By: #### L 500.12761, L500.25711, L500.30013, L500.61270 #### [facility] [place] [address] CO2 [Moles/Vol] 29.0 mmol/L Normal 21-32 [facility] Comment on above: Order Comment: Campu s: M Performed By: #### L 500.73180, L500.69424, L500.72447, L500.12010 #### [facility] [address] [place] [address] Creatinine [Mass/Vol] 0.95 mg/dL Normal 0.5-1.4 [facility] Comment on above: Order Comment: Campu s: M Result Comment: NOTE NEW NORMAL RANGE DUE TO REAGENT CHANGE Patients receiving either N-Acetylcysteine (NAC) or Metamizole prior to venipuncture, may have falsely depressed results. Performed By: #### L 500.48020, L500.67570, L500.24518, L500.76567 #### [facility] [address] [place] [address] Glucose [Mass/Vol] 176 mg/dL High 70-100 [facility] Comment on above: Order Comment: Campu s: M Result Comment: 70-1 00- Normal Fasting; 100-125 Impaired Fasting; greater than 126 on more than one result- Diabetes. ADA guidelines. Results may be falsely elevated after the administration of Sulfapyridine. Results may be falsely depressed after the administration of Sulfasalazine. Performed By: #### L 500.09633, L500.05918, L500.15873, L500.19195 #### [facility] [address] [place] [address] Potassium [Moles/Vol] 3.8 mmol/L Normal 3.5-5.1 [facility] Comment on above: Order Comment: Campu s: M Performed By: #### L 500.68886, L500.96884, L500.96806, L500.11073 #### [facility] [address] [place], [place] [address] Sodium [Moles/Vol] 135 mmol/L Low 136-145 [facility] Comment on above: Order Comment: Campu s: M Performed By: #### L 500.73712, L500.67375, L500.84795, L500.88873 #### [facility] [address] [place] [address] Urea nitrogen [Mass/Vol] 25 mg/dL Normal 7-26 [facility] Comment on above: Order Comment: Campu s: M Performed By: #### L 500.26759, L500.04743, L500.67488, L500.91489 #### [facility] [address] [place] [address] Urea nitrogen/Creatinine [Mass ratio] 26 mg/mg High 15-24 [facility] Comment on above: Order Comment: Campu s: M Performed By: #### L 500.09114, L500.77457, L500.26775, L500.26994 #### [facility] [address] [place], [place] [address] CBC W/DIFFon 11-19-2020 BASO ABS 0.00 K/CU MM Normal 0-0.2 [facility] Comment on above: Order Comment: Campu s: M Performed By: #### L 500.45630, L500.65122, L500.43830, L500.52129 #### [facility] [address] [place], [place] [address] Basophils/100 WBC (Bld) 0.6 % Normal 0-2 [facility] Comment on above: Order Comment: Campu s: M Performed By: #### L 500.16423, L500.52670, L500.37324, L500.75288 #### [facility] [address] [place], [place] [address] EOS ABS 0.30 K/CU MM Normal 0-0.5 [facility] Comment on above: Order Comment: Campu s: M Performed By: #### L 500.74384, L500.67517, L500.71047, L500.19051 #### [facility] [address] [place] [address] Eosinophils/100 WBC (Bld) 3.7 % Normal 0-5 [facility] Comment on above: Order Comment: Campu s: M Performed By: #### L 500.29218, L500.58482, L500.94787, L500.61292 #### [facility] [address] [place] [address] Erythrocyte distribution width (RBC) [Ratio] 13.1 % Normal 11-14.5 [facility] Comment on above: Order Comment: Campu s: M Performed By: #### L 500.86687, L500.83942, L500.43677, L500.31965 #### [facility] [address] [place] [address] Hematocrit (Bld) [Volume fraction] 36.3 % Low 41.0-53.0 [facility] Comment on above: Order Comment: Campu s: M Performed By: #### L 500.20601, L500.48085, L500.25675, L500.95218 #### [facility] [address] [place] [address] Hemoglobin (Bld) [Mass/Vol] 12.2 g/dL Low 13.5-17.5 [facility] Comment on above: Order Comment: Campu s: M Performed By: #### L 500.87693, L500.17841, L500.75788, L500.81819 #### [facility] [address] [place] [address] IMMATR GRAN ABS 0.00 K/CU MM Normal Less than 2 [facility] Comment on above: Order Comment: Campu s: M Performed By: #### L 500.20166, L500.76289, L500.38582, L500.68217 #### [facility] [address] [place] [address] IMMATURE GRAN % 0.6 % Normal Less than 2 [facility] Comment on above: Order Comment: Campu s: M Performed By: #### L 500.54929, L500.28419, L500.68927, L500.91474 #### [facility] [address] [place] [address] LYMPH ABS 2.60 K/CU MM Normal 0.9-4.4 [facility] Comment on above: Order Comment: Campu s: M Performed By: #### L 500.48858, L500.21319, L500.79204, L500.03739 #### [facility] [address] [place] [address] Lymphocytes/100 WBC (Bld) 35.4 % Normal 20-40 [facility] Comment on above: Order Comment: Campu s: M Performed By: #### L 500.85540, L500.06109, L500.90152, L500.47026 #### [facility] [address] [place] [address] MCHC (RBC) [Mass/Vol] 33.6 g/dL Normal 32.0-36.0 [facility] Comment on above: Order Comment: Campu s: M Performed By: #### L 500.74579, L500.23567, L500.48869, L500.76230 #### [facility] [address] [place] [address] MCV (RBC) [Entitic vol] 86.4 fL Normal 80.0-99.0 [facility] Comment on above: Order Comment: Campu s: M Performed By: #### L 500.52788, L500.06919, L500.07342, L500.32052 #### [facility] [address] [place] [address] MONO ABS 0.70 K/CU MM Normal 0.1-1.1 [facility] Comment on above: Order Comment: Campu s: M Performed By: #### L 500.07550, L500.33384, L500.92844, L500.00835 #### [facility] [address] [place] [address] Monocytes/100 WBC (Bld) 9.8 % Normal 2-10 [facility] Comment on above: Order Comment: Campu s: M Performed By: #### L 500.21055, L500.75379, L500.43870, L500.87961 #### [facility] [address] [place] [address] NEUTROPHIL ABS 3.60 K/CU MM Normal 2.0-8.3 [facility] Comment on above: Order Comment: Campu s: M Performed By: #### L 500.75696, L500.76792, L500.05559, L500.77314 #### [facility] [address] [place] [address] Neutrophils/100 WBC (Bld) 49.9 % Normal 45-75 [facility] Comment on above: Order Comment: Campu s: M Performed By: #### L 500.04568, L500.40283, L500.84387, L500.59983 #### [facility] [address] [place] [address] Nucleated RBC/100 WBC (Bld) [Ratio] 0.0 % Normal Less than 1 [facility] Comment on above: Order Comment: Campu s: M Performed By: #### L 500.04356, L500.27355, L500.55077, L500.29577 #### [facility] [address] [place], [place] [address] Platelet mean volume (Bld) [Entitic vol] 9.5 fL Normal 9.4-12.4 [facility] Comment on above: Order Comment: Campu s: M Performed By: #### L 500.91412, L500.85320, L500.77983, L500.06528 #### [facility] [address] [place] [address] PLT 209 K/CU MM Normal 150-450 [facility] Comment on above: Order Comment: Campu s: M Performed By: #### L 500.02555, L500.72530, L500.30376, L500.13128 #### [facility] [address] [place] [address] RBC 4.20 M/CU MM Low 4.50-6.00 [facility] Comment on above: Order Comment: Campu s: M Performed By: #### L 500.53787, L500.51836, L500.54934, L500.00024 #### [facility] [address] [place] [address] WBC 7.2 K/CUMM Normal 4.5-11.0 [facility] Comment on above: Order Comment: Campu s: M Performed By: #### L 500.76869, L500.53680, L500.47279, L500.27725 #### [facility] [address] [place], [place] [address] CHEST PA/AP AND LATERALon CHEST PA/AP AND LATERAL CHEST PA/AP & LATERAL Ordering Physician: Omari Rabago MD 11/19/2020 10:14 AM CHEST PA AND LATERAL Clinical Statement: Sleep apnea. Hypertension. Cough and shortness of breath. No comparison FINDINGS: The heart size is within normal limits. Vascularity is normal. Streaky opacity at the left costophrenic angle compatible with atelectasis or scarring. No focal areas of consolidation. No pleural effusion. Degenerative change within the spine. IMPRESSION: Minimal atelectasis or scarring at the left costophrenic angle. Otherwise no acute findings ---- Electronic Signature on File ---- Signed By: Rodney Ledesma MD [email or web address] Dictated: 11/19/2020 12:31 PM Signed: 11/19/2020 12:32 PM Reported By: RODNEY LEDESMA M.D. Signed By: RODNEY LEDESMA M.D. [facility]2020 FERR 57.2 NG/ML Normal 24.0-388.0 [facility] Comment on above: Order Comment: Campu s: M Performed By: #### L 500.10794, L500.20726, L500.87731, L500.13787 #### [facility] [address] [place] [address] GFR ESTon 11-19-2020 IF AMER Greater than [address] [facility] Comment on above: Order Comment: Campu s: M Performed By: #### L 500.45982, L500.59000, L500.90290, L500.95579 #### [facility] [address] [place] [address] IF non-AFR AMER Greater than [address] [facility] Comment on above: Order Comment: Campu s: M Performed By: #### L 500.31359, L500.38647, L500.04789, L500.22867 #### [facility] [address] [place], [place] [address] HGB A1C GLYCOHBon 11-19-2020 HbA1c (Bld) [Mass fraction] 6.9 % High 4.3-6.0 [facility] Comment on above: Order Comment: Campu s: M Performed By: #### L 500.68949, L500.12800 #### [facility] [address] [place] [address] IRON PANELon 11-19-2020 Iron [Mass/Vol] 69 ug/dL Normal 65-175 [facility] Comment on above: Order Comment: Miles s: M Result Comment: Diya ents treated with metal-binding drugs (e.g.deferoxamine) may have depressed iron values, as chelated iron may not properly react in the Siemens iron assay. Performed By: #### L 500.87099, L500.72738, L500.79276, L500.38504 #### [facility] [address] [place] [address] IRON SAT 19 % Low 30-44 [facility] Comment on above: Order Comment: Miles s: M Performed By: #### L 500.29955, L500.89571, L500.83751, L500.40191 #### [facility] [address] [place] [address] TIBC 354 UG/DL Normal 221-481 [facility] Comment on above: Order Comment: Miles s: M Performed By: #### L 500.19301, L500.36932, L500.21267, L500.47145 #### [facility] [address] [place] [address] MRSA PCRon 11-19-2020 MRSA PCR Negative Normal NEGATIVE [facility] Comment on above: Order Comment: Jeremieu s: M Result Comment: PLEA SE NOTE: TESTING DONE BY PCR TECHNOLOGY. Performed By: #### L 500.30841, L500.21648 #### [facility] [address] [place], [place] [address] SA PCR Negative Normal NEGATIVE [facility] Comment on above: Order Comment: Miles s: M Result Comment: PLEA SE NOTE: TESTING DONE BY PCR TECHNOLOGY. Performed By: #### L 500.85154, L500.24652 #### [facility] [address] [place] [address] [place] [address] PATIENT RETYPEon 11-19-2020 RETYPE INTERP Positive Normal [facility] Comment on above: Order Comment: Miles s: M PBNP TESTon 11-19-2020 PBNP TEST LESS THAN 15 Normal 0-125 [facility] Comment on above: Order Comment: Miles s: M Result Comment: NT-p roBNP results of less than 300 pg/ml likely rules out acute congestive heart failure with 99% predictive value. NOTE: These cuttoff points are suggested for ACUTE CHF DIAGNOSIS only Less than 50 years Greater than 450 pg/ml 50-75 years Greater than 900 pg/ml Greater than 75 years Greater than 1800 pg/ml NOTE NEW NORMAL RANGE Performed By: #### L 500.06469 #### [facility] [place] [address] Basic Panelon 03-13-2017 Creatinine 0.99 mg/dL Normal 0.67-1.17 [facility] Comment on above: Performed By: #### C _BLO ####[address] [address] Anion gap 7 mmol/L Low 8-16 [facility] Comment on above: Performed By: #### C _BLO ####[address] [address] CO2 29 mmol/L Normal 21-32 [facility] Comment on above: Performed By: #### C _BLO ####[address] [address] Glucose mass conc 121 mg/dL High 70-99 [facility] Comment on above: Performed By: #### C _BLO ####[address] [address] Urea nitrogen 17 mg/dL Normal 7-18 [facility] Comment on above: Performed By: #### C _BLO ####[address] [address] Calcium 8.1 mg/dL Low 8.5-10.1 [facility] Comment on above: Performed By: #### C _BLO ####[facility] [place] [address] Chloride 102 mmol/L Normal 98-107 [facility] Comment on above: Performed By: #### C _BLO ####[place] [address] Potassium molar conc 4.0 mmol/L Normal 3.5-5.1 [facility] Comment on above: Performed By: #### C _BLO ####[place] [address] Sodium 134 mmol/L Low 136-145 [facility] Comment on above: Performed By: #### C _BLO ####[place] [address] Hemogramon 03-13-2017 Erythrocyte distribution width Auto Ratio (RBC) 13.7 % Normal 11.6-14.4 [facility] Comment on above: Performed By: #### C _BLO ####[place] [address] Erythrocytes (RBC) 3.00 mil/cmm Low 4.63-6.08 [facility] Comment on above: Performed By: #### C _BLO ####[place] [address] Hematocrit (HCT) 26.0 % Low 40.1-51.0 [facility] Comment on above: Performed By: #### C _BLO ####[place] [address] Hemoglobin mass conc (Bld) 8.4 g/dL Low 13.7-17.5 [facility] Comment on above: Performed By: #### C _BLO ####[place] [address] MCH 28.0 pg Normal 25.7-32.2 [facility] Comment on above: Performed By: #### C _BLO ####[place] [address] MCHC mass conc (RBC) 32.3 % Normal 32.3-36.5 [facility] Comment on above: Performed By: #### C _BLO ####[facility] [place], [place] [address] MCV 86.7 fL Normal 83.2-95.6 [facility] Comment on above: Performed By: #### C _BLO ####[address] [address] Platelet mean volume (PMV) 10.5 fL Normal 8.7-12.0 [facility] Comment on above: Performed By: #### C _BLO ####[address] [address] Platelets 181 thou/cmm Normal 141-365 [facility] Comment on above: Performed By: #### C _BLO ####[address] [address] RDW SD 43.4 fl Normal 36.1-45.8 [facility] Comment on above: Performed By: #### C _BLO ####[address] [address] WBC (Leukocytes) 7.28 thou/cmm Normal 4.23-9.07 [facility] Comment on above: Performed By: #### C _BLO ####[place] [address] MDRD GFRon 03-13-2017 eGFR (non-black) mL/min/{1.73_m2} Normal >60mL/m in/1 .73m2 [facility] Comment on above: Result Comment: If t he patient is , multiply the result by 1.210. Performed By: #### C _BLO ####[address] [address] Basic Panelon 03-12-2017 Creatinine 0.99 mg/dL Normal 0.67-1.17 [facility] Comment on above: Performed By: #### C _BLO ####[address] [address] Anion gap 9 mmol/L Normal 8-16 [facility] Comment on above: Performed By: #### C _BLO ####[place] [id number] CO2 28 mmol/L Normal 21-32 [facility] Comment on above: Performed By: #### C _BLO ####[facility] [place], [place] [address] Calcium 7.9 mg/dL Low 8.5-10.1 [facility] Comment on above: Performed By: #### C _BLO ####[facility] [place], [place] [address] Glucose mass conc 107 mg/dL High 70-99 [facility] Comment on above: Performed By: #### C _BLO ####[place] [address] Urea nitrogen 18 mg/dL Normal 7-18 [facility] Comment on above: Performed By: #### C _BLO ####[place] [address] Chloride 102 mmol/L Normal 98-107 [facility] Comment on above: Performed By: #### C _BLO ####[place] [address] Potassium molar conc 3.9 mmol/L Normal 3.5-5.1 [facility] Comment on above: Performed By: #### C _BLO ####[place] [address] Sodium 135 mmol/L Low 136-145 [facility] Comment on above: Performed By: #### C _BLO ####[place] [address] Hemogramon 03-12-2017 Erythrocyte distribution width Auto Ratio (RBC) 13.9 % Normal 11.6-14.4 [facility] Comment on above: Performed By: #### C _BLO ####[place] [address] Erythrocytes (RBC) 2.76 mil/cmm Low 4.63-6.08 [facility] Comment on above: Performed By: #### C _BLO ####[place] [address] Hematocrit (HCT) 23.9 % Low 40.1-51.0 [facility] Comment on above: Performed By: #### C _BLO ####[place] [address] Hemoglobin mass conc (Bld) 7.7 g/dL Low 13.7-17.5 [facility] Comment on above: Performed By: #### C _BLO ####[place] [address] MCH 27.9 pg Normal 25.7-32.2 [facility] Comment on above: Performed By: #### C _BLO ####[place] [address] MCHC mass conc (RBC) 32.2 % Low 32.3-36.5 [facility] Comment on above: Performed By: #### C _BLO ####[place] [address] MCV 86.6 fL Normal 83.2-95.6 [facility] Comment on above: Performed By: #### C _BLO ####[place] [address] Platelet mean volume (PMV) 10.4 fL Normal 8.7-12.0 [facility] Comment on above: Performed By: #### C _BLO ####[place] [address] Platelets 139 thou/cmm Low 141-365 [facility] Comment on above: Performed By: #### C _BLO ####[place] [address] RDW SD 43.8 fl Normal 36.1-45.8 [facility] Comment on above: Performed By: #### C _BLO ####[place] [address] WBC (Leukocytes) 7.03 thou/cmm Normal 4.23-9.07 [facility] Comment on above: Performed By: #### C _BLO ####[place] [address] MDRD GFRon 03-12-2017 eGFR (non-black) mL/min/{1.73_m2} Normal >60mL/m in/1 .73m2 [facility] Comment on above: Result Comment: If t he patient is , multiply the result by 1.210. Performed By: #### C _BLO ####[facility] [place], [place] [address] Basic Panelon 03-11-2017 Creatinine 0.92 mg/dL Normal 0.67-1.17 [facility] Comment on above: Performed By: #### C _BLO ####[address] [address] Anion gap 9 mmol/L Normal 8-16 [facility] Comment on above: Performed By: #### C _BLO ####[place] [address] CO2 27 mmol/L Normal 21-32 [facility] Comment on above: Performed By: #### C _BLO ####[place] [address] Urea nitrogen 19 mg/dL High 7-18 [facility] Comment on above: Performed By: #### C _BLO ####[place] [address] Calcium 7.8 mg/dL Low 8.5-10.1 [facility] Comment on above: Performed By: #### C _BLO ####[address] [address] Glucose mass conc 120 mg/dL High 70-99 [facility] Comment on above: Performed By: #### C _BLO ####[place] [address] Chloride 103 mmol/L Normal 98-107 [facility] Comment on above: Performed By: #### C _BLO ####[place] [address] Potassium molar conc 4.1 mmol/L Normal 3.5-5.1 [facility] Comment on above: Performed By: #### C _BLO ####[place] [address] Sodium 135 mmol/L Low 136-145 [facility] Comment on above: Performed By: #### C _BLO ####[address] [address] Hemogram/Diffon 03-11-2017 Basophils Auto #/vol (Bld) 0.03 thou/cmm Normal 0.01-0.08 [facility] Comment on above: Performed By: #### C _BLO ####[place] [address] Basophils/100 WBC Auto (Bld) 0.3 % Normal [facility] Comment on above: Performed By: #### C _BLO ####[place] [address] Eosinophils 0.07 thou/cmm Normal 0.04-0.54 [facility] Comment on above: Performed By: #### C _BLO ####[place] [address] Eosinophils/100 leukocytes 0.7 % Normal [facility] Comment on above: Performed By: #### C _BLO ####[place] [address] Erythrocyte distribution width Auto Ratio (RBC) 14.1 % Normal 11.6-14.4 [facility] Comment on above: Performed By: #### C _BLO ####[place] [address] Erythrocytes (RBC) 2.95 mil/cmm Low 4.63-6.08 [facility] Comment on above: Performed By: #### C _BLO ####[place] [address] Hematocrit (HCT) 25.3 % Low 40.1-51.0 [facility] Comment on above: Performed By: #### C _BLO ####[place] [address] Hemoglobin mass conc (Bld) 8.3 g/dL Low 13.7-17.5 [facility] Comment on above: Performed By: #### C _BLO ####[place] [address] Immature Grans 0.70 % Normal [facility] Comment on above: Performed By: #### C _BLO ####[place] [address] Immature Grans # 0.07 thou/cmm High 0.00-0.05 [facility] Comment on above: Performed By: #### C _BLO ####[place] [address] Lymphocytes 2.07 thou/cmm Normal 0.84-2.85 [facility] Comment on above: Performed By: #### C _BLO ####[place] [address] Lymphocytes/100 leukocytes 21.5 % Normal [facility] Comment on above: Performed By: #### C _BLO ####[place] [address] MCH 28.1 pg Normal 25.7-32.2 [facility] Comment on above: Performed By: #### C _BLO ####[place] [address] MCHC mass conc (RBC) 32.8 % Normal 32.3-36.5 [facility] Comment on above: Performed By: #### C _BLO ####[place] [address] MCV 85.8 fL Normal 83.2-95.6 [facility] Comment on above: Performed By: #### C _BLO ####[place] [address] Monocytes 1.21 thou/cmm High 0.30-0.82 [facility] Comment on above: Performed By: #### C _BLO ####[place] [address] Monocytes/100 leukocytes 12.5 % Normal [facility] Comment on above: Performed By: #### C _BLO ####[place] [address] Platelet mean volume (PMV) 10.3 fL Normal 8.7-12.0 [facility] Comment on above: Performed By: #### C _BLO ####[facility] [place], [place] [address] Platelets 158 thou/cmm Normal 141-365 [facility] Comment on above: Performed By: #### C _BLO ####[address] [address] RDW SD 43.8 fl Normal 36.1-45.8 [facility] Comment on above: Performed By: #### C _BLO ####[address] [address] Seg Neutrophil 64.3 % Normal [facility] Comment on above: Performed By: #### C _BLO ####[place] [address] Seg. Neut.# 6.20 thou/cmm High 1.78-5.38 [facility] Comment on above: Performed By: #### C _BLO ####[place] [address] WBC (Leukocytes) 9.65 thou/cmm High 4.23-9.07 [facility] Comment on above: Performed By: #### C _BLO ####[address] [address] MDRD GFRon 03-11-2017 eGFR (non-black) mL/min/{1.73_m2} Normal >60mL/m in/1 .73m2 [facility] Comment on above: Result Comment: If t he patient is , multiply the result by 1.210. Performed By: #### C _BLO ####[address] [address] Basic Panelon 03-10-2017 Creatinine 1.10 mg/dL Normal 0.67-1.17 [facility] Comment on above: Performed By: #### P 8 ####[address] [address] Glucose mass conc 136 mg/dL High 70-99 [facility] Comment on above: Performed By: #### P 8 ####[facility] [place], [place] [address] Urea nitrogen 25 mg/dL High 7-18 [facility] Comment on above: Performed By: #### P 8 ####[address] [address] Anion gap 11 mmol/L Normal 8-16 [facility] Comment on above: Performed By: #### P 8 ####[address] [address] Calcium 7.7 mg/dL Low 8.5-10.1 [facility] Comment on above: Performed By: #### P 8 ####[address] [address] CO2 26 mmol/L Normal 21-32 [facility] Comment on above: Performed By: #### P 8 ####[address] [address] Chloride 103 mmol/L Normal 98-107 [facility] Comment on above: Performed By: #### P 8 ####[address] [address] Potassium molar conc 4.4 mmol/L Normal 3.5-5.1 [facility] Comment on above: Performed By: #### P 8 ####[address] [address] Sodium 136 mmol/L Normal 136-145 [facility] Comment on above: Performed By: #### P 8 ####[address] [address] Hemogram/Diffon 03-10-2017 Basophils Auto #/vol (Bld) 0.01 thou/cmm Normal 0.01-0.08 [facility] Comment on above: Performed By: #### C BCD1 ####[address] [address] Basophils/100 WBC Auto (Bld) 0.1 % Normal [facility] Comment on above: Performed By: #### C BCD1 ####[address] [address] Eosinophils 0.00 thou/cmm Low 0.04-0.54 [facility] Comment on above: Performed By: #### C BCD1 ####[address] [address] Eosinophils/100 leukocytes 0.0 % Normal [facility] Comment on above: Performed By: #### C BCD1 ####[place] [address] Erythrocyte distribution width Auto Ratio (RBC) 14.0 % Normal 11.6-14.4 [facility] Comment on above: Performed By: #### C BCD1 ####[place] [address] Erythrocytes (RBC) 3.37 mil/cmm Low 4.63-6.08 [facility] Comment on above: Performed By: #### C BCD1 ####[place] [address] Hematocrit (HCT) 28.9 % Low 40.1-51.0 [facility] Comment on above: Performed By: #### C BCD1 ####[place] [address] Hemoglobin mass conc (Bld) 9.2 g/dL Low 13.7-17.5 [facility] Comment on above: Performed By: #### C BCD1 ####[address] [address] Immature Grans 0.40 % Normal [facility] Comment on above: Performed By: #### C BCD1 ####[place] [address] Immature Grans # 0.04 thou/cmm Normal 0.00-0.05 [facility] Comment on above: Performed By: #### C BCD1 ####[place] [address] Lymphocytes 1.82 thou/cmm Normal 0.84-2.85 [facility] Comment on above: Performed By: #### C BCD1 ####[place] [address] Lymphocytes/100 leukocytes 18.6 % Normal [facility] Comment on above: Performed By: #### C BCD1 ####[facility] [place], [place] [address] MCH 27.3 pg Normal 25.7-32.2 [facility] Comment on above: Performed By: #### C BCD1 ####[address] [address] MCHC mass conc (RBC) 31.8 % Low 32.3-36.5 [facility] Comment on above: Performed By: #### C BCD1 ####[address] [address] MCV 85.8 fL Normal 83.2-95.6 [facility] Comment on above: Performed By: #### C BCD1 ####[address] [address] Monocytes 1.05 thou/cmm High 0.30-0.82 [facility] Comment on above: Performed By: #### C BCD1 ####[address] [address] Monocytes/100 leukocytes 10.7 % Normal [facility] Comment on above: Performed By: #### C BCD1 ####[address] [address] Platelet mean volume (PMV) 10.0 fL Normal 8.7-12.0 [facility] Comment on above: Performed By: #### C BCD1 ####[address] [address] Platelets 176 thou/cmm Normal 141-365 [facility] Comment on above: Performed By: #### C BCD1 ####[address] [address] RDW SD 43.2 fl Normal 36.1-45.8 [facility] Comment on above: Performed By: #### C BCD1 ####[address] [address] Seg Neutrophil 70.2 % Normal [facility] Comment on above: Performed By: #### C BCD1 ####[place] [address] Seg. Neut.# 6.89 thou/cmm High 1.78-5.38 [facility] Comment on above: Performed By: #### C BCD1 ####[place] [address] WBC (Leukocytes) 9.81 thou/cmm High 4.23-9.07 [facility] Comment on above: Performed By: #### C BCD1 ####[place] [address] MDRD GFRon 03-10-2017 eGFR (non-black) mL/min/{1.73_m2} Normal >60mL/m in/1 .73m2 [facility] Comment on above: Result Comment: If t he patient is , multiply the result by 1.210. Performed By: #### G FR ####[place] [address] Cult and Smr ISAK and AERon 1 Cult and Smr ISAK and AER Test performed at [facility] No growth Rare WBC No organisms seen Normal [facility] Comment on above: Performed By: #### C _ANA ####[place] [address] Cult and Smr ISAK and AER Test performed at [facility] No growth No WBC seen No organisms seen Normal [facility] Comment on above: Performed By: #### C _ANA ####[place] [address] Cult and Smr ISAK and AER Test performed at [facility] No growth No WBC seen No organisms seen Normal [facility] Comment on above: Performed By: #### C _ANA ####[place] [address] Cult and Smr ISAK and AER Test performed at [facility] No growth Rare WBC No organisms seen Normal [facility] Comment on above: Performed By: #### C _ANA ####[place] [address] LUMBOSACRAL SPINE 2 OR 3 VIE WSon 03-09-2017 LUMBOSACRAL SPINE 2 OR 3 VIEWS Performed at [facility] APPROVED BY: Maria C Hernandez MD EXAM TITLE: LUMBOSACRAL SPINE 2 OR 3 VIEWS DATE: 03/09/2017 08:10 COMPARISON: Plain film of the lumbar spine from September 23, 2016 CLINICAL INDICATION/HISTORY: The patient is a 51-year-old male with lumbar spondylosis and spondylolisthesis who is having removal of hardware and re-instrumentation and spine fusion of the lumbar spine. TECHNIQUE: 3 intraoperative spot films are presented for interpretation. 2 minutes and 36 seconds of C-arm portable fluoroscopy was available in the OR. FINDINGS:Initial spot film demonstrates a needle near the posterior elements of S1. There are pedicle screws, discectomy, and vertical fixation bars at L4-5. On the next sentence of images there is new dorsal decompression of L4 and pedicle screws involve L3-S1 along with each sacroiliac joint with vertical fixation bars.Previous discectomy plug appears to have been removed.Near anatomic alignment is achieved. IMPRESSION: Intraoperative spot views demonstrate removal of previous hardware and dorsal decompression and pedicle screw fixation in the lumbosacral spine with near anatomic alignment achieved. Normal [facility] CRPon 03-08-2017 C reactive protein (CRP) 0.63 mg/dL High 0.00-0.30 [facility] Comment on above: Performed By: #### C RP3 ####[address] [address] CPKon 03-07-2017 CPK 174 U/L Normal 39-308 [facility] Comment on above: Performed By: #### L CK ####[address] [address] Creatinine Bloodon 7 Creatinine 1.10 mg/dL Normal 0.67-1.17 [facility] Comment on above: Performed By: #### L CREA ####[address] [address] Hemogram/Diffon 03-07-2017 Basophils Auto #/vol (Bld) 0.03 thou/cmm Normal 0.00-0.08 [facility] Comment on above: Performed By: #### L CBCD ####[address], [place] [address] Basophils/100 WBC Auto (Bld) 0.5 % Normal [facility] Comment on above: Performed By: #### L CBCD ####[facility] [place], [place] [address] Eosinophils 0.16 thou/cmm Normal 0.00-0.41 [facility] Comment on above: Performed By: #### L CBCD ####[address] [address] Eosinophils/100 leukocytes 2.8 % Normal [facility] Comment on above: Performed By: #### L CBCD ####[address] [address] Erythrocyte distribution width Auto Ratio (RBC) 14.0 % Normal 11.5-15.9 [facility] Comment on above: Performed By: #### L CBCD ####[address] [address] Erythrocytes (RBC) 4.17 mil/cmm Low 4.60-6.20 [facility] Comment on above: Performed By: #### L CBCD ####[address] [address] Hematocrit (HCT) 35.9 % Low 42.0-52.0 [facility] Comment on above: Performed By: #### L CBCD ####[address] [address] Hemoglobin mass conc (Bld) 11.8 g/dL Low 14.0-18.0 [facility] Comment on above: Performed By: #### L CBCD ####[address] [address] Lymphocytes 2.37 thou/cmm Normal 1.50-3.65 [facility] Comment on above: Performed By: #### L CBCD ####[address] [address] Lymphocytes/100 leukocytes 41.5 % Normal [facility] Comment on above: Performed By: #### L CBCD ####[address] [address] MCH 28.3 pg Normal 27.0-31.0 [facility] Comment on above: Performed By: #### L CBCD ####[address] [address] MCHC mass conc (RBC) 32.9 % Normal 32.0-36.0 [facility] Comment on above: Performed By: #### L CBCD ####[place] [address] MCV 86.1 fL Normal 80.0-94.0 [facility] Comment on above: Performed By: #### L CBCD ####[place] [address] Monocytes 0.63 thou/cmm Normal 0.20-1.00 [facility] Comment on above: Performed By: #### L CBCD ####[place] [address] Monocytes/100 leukocytes 11.0 % Normal [facility] Comment on above: Performed By: #### L CBCD ####[place] [address] Platelet mean volume (PMV) 10.3 fL Normal 7.1-10.5 [facility] Comment on above: Performed By: #### L CBCD ####[place] [address] Platelets 212 thou/cmm Normal 150-400 [facility] Comment on above: Performed By: #### L CBCD ####[place] [address] Seg Neutrophil 44.2 % Normal [facility] Comment on above: Performed By: #### L CBCD ####[place] [address] Seg. Neut.# 2.51 thou/cmm Low 3.00-5.67 [facility] Comment on above: Performed By: #### L CBCD ####[place] [address] WBC (Leukocytes) 5.7 thou/cmm Normal 4.8-10.8 [facility] Comment on above: Performed By: #### L CBCD ####[address] [address] Hepatic Panelon 03-07-2017 Albumin 3.8 g/dL Normal 3.4-5.0 [facility] Comment on above: Performed By: #### L HEPA ####[address] [address] Albumin/Globulin Ratio 1.1 {ratio} Normal 0.9-2.4 [facility] Comment on above: Performed By: #### L HEPA ####[address] [address] Alkaline phosphatase (ALP) 74 U/L Normal 46-116 [facility] Comment on above: Performed By: #### L HEPA ####[address] [address] ALT-SGPT Blood 38 U/L Normal 12-78 [facility] Comment on above: Performed By: #### L HEPA ####[address] [address] AST-SGOT Blood 21 U/L Normal 15-37 [facility] Comment on above: Performed By: #### L HEPA ####[address] [address] Bilirubin (direct) mg/dL Normal 0.00-0.20 [facility] Comment on above: Performed By: #### L HEPA ####[address] [address] Bilirubin (indirect) 0.1 mg/dL Normal 0.0-0.7 [facility] Comment on above: Performed By: #### L HEPA ####[address] [address] Bilirubin Ql (U) 0.2 mg/dL Normal 0.2-1.0 [facility] Comment on above: Performed By: #### L HEPA ####[address] [address] Protein 7.3 g/dL Normal 6.4-8.2 [facility] Comment on above: Performed By: #### L HEPA ####[address] [address] MDRD eGFRon 03-07-2017 eGFR (non-black) mL/min/{1.73_m2} Normal >60mL/m in/1 .73m2 [facility] Comment on above: Result Comment: If t he patient is , multiply the result by 1.210. Performed By: #### L GFR ####[address] [address] CRPon 03-01-2017 C reactive protein (CRP) 1.15 mg/dL High 0.00-0.30 [facility] Comment on above: Performed By: #### C RP3 ####[address] [address] CPKon 02-28-2017 CPK 220 U/L Normal 39-308 [facility] Comment on above: Performed By: #### L CK ####[address] [address] Creatinine Bloodon 7 Creatinine 1.16 mg/dL Normal 0.67-1.17 [facility] Comment on above: Performed By: #### L CREA ####[address] [address] Hemogram/Diffon 02-28-2017 Basophils Auto #/vol (Bld) 0.04 thou/cmm Normal 0.00-0.08 [facility] Comment on above: Performed By: #### L CBCD ####[address] [address] Basophils/100 WBC Auto (Bld) 0.7 % Normal [facility] Comment on above: Performed By: #### L CBCD ####[address] [address] Eosinophils 0.16 thou/cmm Normal 0.00-0.41 [facility] Comment on above: Performed By: #### L CBCD ####[address], [place] [address] Eosinophils/100 leukocytes 2.7 % Normal [facility] Comment on above: Performed By: #### L CBCD ####[address] [address] Erythrocyte distribution width Auto Ratio (RBC) 14.4 % Normal 11.5-15.9 [facility] Comment on above: Performed By: #### L CBCD ####[address] [address] Erythrocytes (RBC) 4.01 mil/cmm Low 4.60-6.20 [facility] Comment on above: Performed By: #### L CBCD ####[place] [address] Hematocrit (HCT) 34.6 % Low 42.0-52.0 [facility] Comment on above: Performed By: #### L CBCD ####[place] [address] Hemoglobin mass conc (Bld) 11.2 g/dL Low 14.0-18.0 [facility] Comment on above: Performed By: #### L CBCD ####[place] [address] Lymphocytes 2.61 thou/cmm Normal 1.50-3.65 [facility] Comment on above: Performed By: #### L CBCD ####[address] [address] Lymphocytes/100 leukocytes 43.5 % Normal [facility] Comment on above: Performed By: #### L CBCD ####[address] [address] MCH 27.9 pg Normal 27.0-31.0 [facility] Comment on above: Performed By: #### L CBCD ####[address] [address] MCHC mass conc (RBC) 32.4 % Normal 32.0-36.0 [facility] Comment on above: Performed By: #### L CBCD ####[place] [address] MCV 86.3 fL Normal 80.0-94.0 [facility] Comment on above: Performed By: #### L CBCD ####[address] [address] Monocytes 0.88 thou/cmm Normal 0.20-1.00 [facility] Comment on above: Performed By: #### L CBCD ####[address] [address] Monocytes/100 leukocytes 14.7 % Normal [facility] Comment on above: Performed By: #### L CBCD ####[address] [address] Platelet mean volume (PMV) 10.3 fL Normal 7.1-10.5 [facility] Comment on above: Performed By: #### L CBCD ####[address] [address] Platelets 194 thou/cmm Normal 150-400 [facility] Comment on above: Performed By: #### L CBCD ####[address] [address] Seg Neutrophil 38.4 % Normal [facility] Comment on above: Performed By: #### L CBCD ####[address] [address] Seg. Neut.# 2.31 thou/cmm Low 3.00-5.67 [facility] Comment on above: Performed By: #### L CBCD ####[address] [address] WBC (Leukocytes) 6.0 thou/cmm Normal 4.8-10.8 [facility] Comment on above: Performed By: #### L CBCD ####[address] [address] Hepatic Panelon 02-28-2017 Albumin 3.9 g/dL Normal 3.4-5.0 [facility] Comment on above: Performed By: #### L HEPA ####[place] [address] Albumin/Globulin Ratio 1.1 {ratio} Normal 0.9-2.4 [facility] Comment on above: Performed By: #### L HEPA ####[facility] [place], [place] [address] Alkaline phosphatase (ALP) 83 U/L Normal 46-116 [facility] Comment on above: Performed By: #### L HEPA ####[address] [address] ALT-SGPT Blood 39 U/L Normal 12-78 [facility] Comment on above: Performed By: #### L HEPA ####[address] [address] AST-SGOT Blood 21 U/L Normal 15-37 [facility] Comment on above: Performed By: #### L HEPA ####[address] [address] Bilirubin (direct) 0.10 mg/dL Normal 0.00-0.20 [facility] Comment on above: Performed By: #### L HEPA ####[address] [address] Bilirubin (indirect) 0.3 mg/dL Normal 0.0-0.7 [facility] Comment on above: Performed By: #### L HEPA ####[address] [address] Bilirubin Ql (U) 0.4 mg/dL Normal 0.2-1.0 [facility] Comment on above: Performed By: #### L HEPA ####[address] [address] Protein 7.3 g/dL Normal 6.4-8.2 [facility] Comment on above: Performed By: #### L HEPA ####[address] [address] MDRD eGFRon 02-28-2017 eGFR (non-black) mL/min/{1.73_m2} Normal >60mL/m in/1 .73m2 [facility] Comment on above: Result Comment: If t he patient is , multiply the result by 1.210. Performed By: #### L GFR ####[place] [address] DISCHARGE SUMMARYon 02-27-20 [facility] Discharge SummaryJUN ELIAS: [id number] ACCTNUM: [id number] OF : 1965 SEX/AGE: M/51PATIENT TYPE: [facility]: LOCATION: [id number] DATE: 01/14/2017 DISCHARGE DATE: 01/19/2017CONSULTANTS:1. Internal Medicine.2. Infectious Disease.3. Physical Therapy and Occupational Therapy.4. Interventional Radiology.ADMITTING DIAGNOSIS: Diskitis.DISCHARGE DIAGNOSIS: Diskitis.PROCEDURE: Fluoroscopic-guided L4-5 intervertebral disk biopsy.HISTORY OF PRESENT ILLNESS AND BRIEF HOSPITAL COURSE: The patient is a pleasant 62-ektw-vspcroy status post TLIF on August 25, 2016, who reported increasing lumbar back pain. [facility] control and IV antibiotics for the suspected diagnosis of diskitis. A L4-5 fluoroscopic-guidedbiopsy was done by Interventional Radiology on 01/15/2017. The patient was maintained on IV antibiotics.Biopsy results demonstrated no growth and urine culture was negative. Blood culture was negative as well. Hispain improved throughout the course of his hospital stay. His vital signs remained stable throughout the courseof his hospital stay. A PICC line was placed and he was discharged on intravenous antibiotics per the InfectiousDisease service. The patient was discharged in stable condition on 01/19/2017.DISCHARGE MEDICATIONS: Please see MRF.DISCHARGE INSTRUCTIONS: The patient is discharged home. Diet is normal. Weightbearing status isweight bear as tolerated. The patient was instructed to call the office or return to the Emergency Department forany concerns including increased redness, swelling, drainage, or any concerns regarding operation site incision.The patient was to follow up with Dr. Rabago.CONDITION: Stable to home.COMPLICATIONS: There were none.Kike Oliva dictating Ashutosh Rabago MDOrthopedic SurgeryTJ:modl Signed: OMARI RABAGO, MDD: 02/11/2017 08:01:32 02/26/2017 14:37 EDTT: 02/11/2017 09:17:48Job #: [id number] Page 1 of 1 Normal [facility] DISCHARGE SUMMARY PDF Normal [facility] CHEST SINGLE VIEWon 02-24-20 17 CHEST SINGLE VIEW Performed at [facility] APPROVED BY: Ellyn David MD EXAMINATION: CHEST RADIOGRAPH (SINGLE VIEW AP OR PA) Clinical History: Central line placement.M: [id number]: None. RESULT: Lines, tubes, and devices: Right-sided PICC line with tip in the distal superior vena cava. Lungs and pleura: Lungs are clear. No infiltrates or effusions. Cardiomediastinal silhouette: Normal cardiomediastinal silhouette. Other: No significant additional findings. IMPRESSION: Right-sided PICC line with tip in the distal superior vena cava. Normal [facility] CRPon 02-22-2017 C reactive protein (CRP) 0.94 mg/dL High 0.00-0.30 [facility] Comment on above: Performed By: #### U RIN2 ####[place] [id number] PICC LINE INSERTION [id number] 02-22-2017 PICC LINE INSERTION [id number] Performed at [facility] APPROVED BY: ELLIOTT RENEE MD EXAM TITLE: PICC LINE INSERTION [id number] DATE:02/22/2017 10:50 COMPARISON: None. CLINICAL INDICATION/HISTORY: Discitis TECHNIQUE: All elements maximal barrier technique including mask, sterile gown, sterile gloves, large sterile drape, appropriate hand hygiene, appropriate prep agent for cutaneous antisepsis were utilized and maintained for the procedure.. A PICC line was then placed by the [facility] nursing PICC team without added supervision by the interventionalist in special procedures. The PICC catheter entry site is the right basilic vein; the tip of the PICC catheter is in the superior vena cava. Note made that PICC was pulled out 7 cm per patient. The PICC line has been secured to the skin, bandaged, and flushed with appropriate saline and is ready for use. IMPRESSION:Technically successful placement of PICC line by the [facility] nursing PICC team. Normal [facility] REPLACEMENT PICC/SAME ACCESS [id number] 02-22-2017 REPLACEMENT PICC/SAME ACCESS [id number] Performed at [facility] APPROVED BY: ELLIOTT RENEE MD EXAM TITLE: PICC LINE INSERTION [id number] DATE:02/22/2017 10:50 COMPARISON: None. CLINICAL INDICATION/HISTORY: Discitis TECHNIQUE: All elements maximal barrier technique including mask, sterile gown, sterile gloves, large sterile drape, appropriate hand hygiene, appropriate prep agent for cutaneous antisepsis were utilized and maintained for the procedure.. A PICC line was then placed by the [facility] nursing PICC team without added supervision by the interventionalist in special procedures. The PICC catheter entry site is the right basilic vein; the tip of the PICC catheter is in the superior vena cava. Note made that PICC was pulled out 7 cm per patient. The PICC line has been secured to the skin, bandaged, and flushed with appropriate saline and is ready for use. IMPRESSION:Technically successful placement of PICC line by the [facility] nursing PICC team. Normal [facility] CPKon 02-21-2017 CPK 223 U/L Normal 39-308 [facility] Comment on above: Performed By: #### U RIN2 ####[address] [address] Creatinine Bloodon 7 Creatinine 1.10 mg/dL Normal 0.67-1.17 [facility] Comment on above: Performed By: #### U RIN2 ####[address] [address] Hemogram/Manual Diffon 02-21 Basophils Auto #/vol (Bld) 0.00 thou/cmm Normal 0.00-0.08 [facility] Comment on above: Performed By: #### U RIN2 ####[address] [address] Basophils/100 WBC Auto (Bld) 0.0 % Normal [facility] Comment on above: Performed By: #### U RIN2 ####[address] [address] Eosinophils 0.18 thou/cmm Normal 0.00-0.41 [facility] Comment on above: Performed By: #### U RIN2 ####[address], [place] [address] Eosinophils/100 leukocytes 4.0 % Normal [facility] Comment on above: Performed By: #### U RIN2 ####[address] [address] Erythrocyte morphology Normal Normal [facility] Comment on above: Performed By: #### U RIN2 ####[address] [address] Lymphocytes 2.11 thou/cmm Normal 1.50-3.65 [facility] Comment on above: Performed By: #### U RIN2 ####[address] [address] Lymphocytes/100 leukocytes 48.0 % Normal [facility] Comment on above: Performed By: #### U RIN2 ####[address] [address] Monocytes 0.62 thou/cmm Normal 0.20-1.00 [facility] Comment on above: Performed By: #### U RIN2 ####[address] [address] Monocytes/100 leukocytes 14.0 % Normal [facility] Comment on above: Performed By: #### U RIN2 ####[address] [address] Platelets Normal Normal [facility] Comment on above: Performed By: #### U RIN2 ####[address] [address] Seg. Neut.# 1.49 thou/cmm Low 3.00-5.67 [facility] Comment on above: Performed By: #### U RIN2 ####[address] [address] Diff Type Manual Diff Normal [facility] Comment on above: Performed By: #### U RIN2 ####[address] [address] Erythrocyte distribution width Auto Ratio (RBC) 14.9 % Normal 11.5-15.9 [facility] Comment on above: Performed By: #### U RIN2 ####[place] [address] [place] [address] Erythrocytes (RBC) 3.77 mil/cmm Low 4.60-6.20 [facility] Comment on above: Performed By: #### U RIN2 ####[place] [address] Hematocrit (HCT) 32.5 % Low 42.0-52.0 [facility] Comment on above: Performed By: #### U RIN2 ####[place] [address] Hemoglobin mass conc (Bld) 10.5 g/dL Low 14.0-18.0 [facility] Comment on above: Performed By: #### U RIN2 ####[place] [address] MCH 27.9 pg Normal 27.0-31.0 [facility] Comment on above: Performed By: #### U RIN2 ####[place] [address] MCHC mass conc (RBC) 32.3 % Normal 32.0-36.0 [facility] Comment on above: Performed By: #### U RIN2 ####[place] [address] MCV 86.2 fL Normal 80.0-94.0 [facility] Comment on above: Performed By: #### U RIN2 ####[place] [address] Platelet mean volume (PMV) 10.1 fL Normal 7.1-10.5 [facility] Comment on above: Performed By: #### U RIN2 ####[place] [address] Platelets 209 thou/cmm Normal 150-400 [facility] Comment on above: Performed By: #### U RIN2 ####[place] [address] Seg Neutrophil 34.0 % Normal [facility] Comment on above: Performed By: #### U RIN2 ####[place] [id number] WBC (Leukocytes) 4.4 thou/cmm Low 4.8-10.8 [facility] Comment on above: Performed By: #### U RIN2 ####[address] [address] Hepatic Panelon 02-21-2017 Albumin 3.8 g/dL Normal 3.4-5.0 [facility] Comment on above: Performed By: #### U RIN2 ####[address] [address] Albumin/Globulin Ratio 1.2 {ratio} Normal 0.9-2.4 [facility] Comment on above: Performed By: #### U RIN2 ####[address] [address] Alkaline phosphatase (ALP) 77 U/L Normal 46-116 [facility] Comment on above: Performed By: #### U RIN2 ####[address] [address] ALT-SGPT Blood 37 U/L Normal 12-78 [facility] Comment on above: Performed By: #### U RIN2 ####[address] [address] AST-SGOT Blood 20 U/L Normal 15-37 [facility] Comment on above: Performed By: #### U RIN2 ####[address] [address] Bilirubin (direct) mg/dL Normal 0.00-0.20 [facility] Comment on above: Performed By: #### U RIN2 ####[address] [address] Bilirubin (indirect) 0.2 mg/dL Normal 0.0-0.7 [facility] Comment on above: Performed By: #### U RIN2 ####[address] [address] Bilirubin Ql (U) 0.3 mg/dL Normal 0.2-1.0 [facility] Comment on above: Performed By: #### U RIN2 ####[address], [place] [address] Protein 7.0 g/dL Normal 6.4-8.2 [facility] Comment on above: Performed By: #### U RIN2 ####[facility] [place], [place] [address] MDRD eGFRon 02-21-2017 eGFR (non-black) mL/min/{1.73_m2} Normal >60mL/m in/1 .73m2 [facility] Comment on above: Result Comment: If t he patient is , multiply the result by 1.210. Performed By: #### U RIN2 ####[address] [address] Basic Panelon 02-18-2017 Creatinine 1.17 mg/dL Normal 0.67-1.17 [facility] Comment on above: Performed By: #### G FR ####[place] [address] Anion gap 12 mmol/L Normal 8-16 [facility] Comment on above: Performed By: #### G FR ####[facility] [place], [place] [address] CO2 29 mmol/L Normal 21-32 [facility] Comment on above: Performed By: #### G FR ####[address] [address] Glucose mass conc 101 mg/dL High 70-99 [facility] Comment on above: Performed By: #### G FR ####[facility] [place], [place] [address] Urea nitrogen 32 mg/dL High 7-18 [facility] Comment on above: Performed By: #### G FR ####[facility] [place], [place] [address] Calcium 9.3 mg/dL Normal 8.5-10.1 [facility] Comment on above: Performed By: #### G FR ####[address] [address] Chloride 104 mmol/L Normal 98-107 [facility] Comment on above: Performed By: #### G FR ####[facility] [place] [address] Potassium molar conc 5.1 mmol/L Normal 3.5-5.1 [facility] Comment on above: Performed By: #### G FR ####[place] [address] Sodium 140 mmol/L Normal 136-145 [facility] Comment on above: Performed By: #### G FR ####[place] [address] Hemogramon 02-18-2017 Erythrocyte distribution width Auto Ratio (RBC) 15.3 % High 11.6-14.4 [facility] Comment on above: Performed By: #### G FR ####[place] [address] Erythrocytes (RBC) 4.18 mil/cmm Low 4.63-6.08 [facility] Comment on above: Performed By: #### G FR ####[place] [address] Hematocrit (HCT) 36.1 % Low 40.1-51.0 [facility] Comment on above: Performed By: #### G FR ####[place] [address] Hemoglobin mass conc (Bld) 11.6 g/dL Low 13.7-17.5 [facility] Comment on above: Performed By: #### G FR ####[place] [address] MCH 27.8 pg Normal 25.7-32.2 [facility] Comment on above: Performed By: #### G FR ####[place] [address] MCHC mass conc (RBC) 32.1 % Low 32.3-36.5 [facility] Comment on above: Performed By: #### G FR ####[place] [address] MCV 86.4 fL Normal 83.2-95.6 [facility] Comment on above: Performed By: #### G FR ####[address], [place] [address] Nucleated erythrocytes 0.02 thou/cmm High 0.00-0.01 [facility] Comment on above: Performed By: #### G FR ####[facility] [place], [place] [address] Nucleated RBC % 0.4 % High 0.0-0.2 [facility] Comment on above: Performed By: #### G FR ####[facility] [place], [place] [address] Platelet mean volume (PMV) 10.5 fL Normal 8.7-12.0 [facility] Comment on above: Performed By: #### G FR ####[place] [address] Platelets 217 thou/cmm Normal 141-365 [facility] Comment on above: Performed By: #### G FR ####[place] [address] RDW SD 48.1 fl High 36.1-45.8 [facility] Comment on above: Performed By: #### G FR ####[address] [address] WBC (Leukocytes) 5.46 thou/cmm Normal 4.23-9.07 [facility] Comment on above: Performed By: #### G FR ####[address] [address] Hgb A1con 02-18-2017 Glucose mass conc 108 mg/dL Normal [facility] Comment on above: Performed By: #### G FR ####[address] [address] Hemoglobin A1c/Hemoglobin.total mass fraction (Bld) 5.4 % Normal 4.2-6.3 [facility] Comment on above: Result Comment: Meth od is National Glycohemoglobin Standardization Program (NGSP) compliant. Performed By: #### G FR ####[address] [address] MRSA/MSSA Screenon 7 MRSA/MSSA Screen Test performed at [facility] No Staph aureus or MRSA detected. Normal [facility] Comment on above: Performed By: #### U RIN2 ####[facility] [place] [address] Type and Screenon 02-18-2017 ABO group A Normal [facility] Comment on above: Performed By: #### G FR ####[facility] [place] [address] Antibody Screen Negative Normal [facility] Comment on above: Performed By: #### G FR ####[facility] [place] [address] Comment PAT specimen Normal [facility] Comment on above: Performed By: #### G FR ####[facility] [place] [address] RH Type Positive Normal [facility] Comment on above: Performed By: #### G FR ####[place] [address] CRPon 02-15-2017 C reactive protein (CRP) 1.00 mg/dL High 0.00-0.30 [facility] Comment on above: Performed By: #### G FR ####[place] [address] CPKon 02-14-2017 CPK 166 U/L Normal 39-308 [facility] Comment on above: Performed By: #### G FR ####[place] [address] Creatinine Bloodon 7 Creatinine 1.15 mg/dL Normal 0.67-1.17 [facility] Comment on above: Performed By: #### G FR ####[place] [address] Hemogram/Manual Diffon 02-14 Anisocytosis presence Slight Normal [facility] Comment on above: Performed By: #### G FR ####[place] [address] Basophils Auto #/vol (Bld) 0.00 thou/cmm Normal 0.00-0.08 [facility] Comment on above: Performed By: #### G FR ####[facility] [place], [place] [address] Basophils/100 WBC Auto (Bld) 0.0 % Normal [facility] Comment on above: Performed By: #### G FR ####[facility] [place], [place] [address] Eosinophils 0.24 thou/cmm Normal 0.00-0.41 [facility] Comment on above: Performed By: #### G FR ####[address] [address] Eosinophils/100 leukocytes 5.0 % Normal [facility] Comment on above: Performed By: #### G FR ####[address] [address] Lymphocytes 2.21 thou/cmm Normal 1.50-3.65 [facility] Comment on above: Performed By: #### G FR ####[address] [address] Lymphocytes/100 leukocytes 46.0 % Normal [facility] Comment on above: Performed By: #### G FR ####[address] [address] Monocytes 0.58 thou/cmm Normal 0.20-1.00 [facility] Comment on above: Performed By: #### G FR ####[address] [address] Monocytes/100 leukocytes 12.0 % Normal [facility] Comment on above: Performed By: #### G FR ####[address] [address] Platelets Normal Normal [facility] Comment on above: Performed By: #### G FR ####[address] [address] Seg Neutrophil 37.0 % Normal [facility] Comment on above: Performed By: #### G FR ####[address] [address] Seg. Neut.# 1.77 thou/cmm Low 3.00-5.67 [facility] Comment on above: Performed By: #### G FR ####[facility] [place] [address] Diff Type Manual Diff Normal [facility] Comment on above: Performed By: #### G FR ####[place] [address] Erythrocyte distribution width Auto Ratio (RBC) 15.1 % Normal 11.5-15.9 [facility] Comment on above: Performed By: #### G FR ####[place] [address] Erythrocytes (RBC) 3.88 mil/cmm Low 4.60-6.20 [facility] Comment on above: Performed By: #### G FR ####[place] [address] Hematocrit (HCT) 33.4 % Low 42.0-52.0 [facility] Comment on above: Performed By: #### G FR ####[place] [address] Hemoglobin mass conc (Bld) 10.7 g/dL Low 14.0-18.0 [facility] Comment on above: Performed By: #### G FR ####[place] [address] MCH 27.6 pg Normal 27.0-31.0 [facility] Comment on above: Performed By: #### G FR ####[place] [address] MCHC mass conc (RBC) 32.0 % Normal 32.0-36.0 [facility] Comment on above: Performed By: #### G FR ####[place] [address] MCV 86.1 fL Normal 80.0-94.0 [facility] Comment on above: Performed By: #### G FR ####[place] [address] Platelet mean volume (PMV) 10.2 fL Normal 7.1-10.5 [facility] Comment on above: Performed By: #### G FR ####[facility] [place], [place] [address] Platelets 229 thou/cmm Normal 150-400 [facility] Comment on above: Performed By: #### G FR ####[address] [address] WBC (Leukocytes) 4.8 thou/cmm Normal 4.8-10.8 [facility] Comment on above: Performed By: #### G FR ####[address] [address] Hepatic Panelon 02-14-2017 Albumin 3.8 g/dL Normal 3.4-5.0 [facility] Comment on above: Performed By: #### G FR ####[address] [address] Albumin/Globulin Ratio 1.1 {ratio} Normal 0.9-2.4 [facility] Comment on above: Performed By: #### G FR ####[address] [address] Alkaline phosphatase (ALP) 77 U/L Normal 46-116 [facility] Comment on above: Performed By: #### G FR ####[address] [address] ALT-SGPT Blood 36 U/L Normal 12-78 [facility] Comment on above: Performed By: #### G FR ####[address] [address] AST-SGOT Blood 16 U/L Normal 15-37 [facility] Comment on above: Performed By: #### G FR ####[address] [address] Bilirubin (direct) 0.10 mg/dL Normal 0.00-0.20 [facility] Comment on above: Performed By: #### G FR ####[address] [address] Bilirubin (indirect) 0.3 mg/dL Normal 0.0-0.7 [facility] Comment on above: Performed By: #### G FR ####[place] [address] Bilirubin Ql (U) 0.4 mg/dL Normal 0.2-1.0 [facility] Comment on above: Performed By: #### G FR ####[address] [address] Protein 7.4 g/dL Normal 6.4-8.2 [facility] Comment on above: Performed By: #### G FR ####[address] [address] CPKon 02-07-2017 CPK 206 U/L Normal 39-308 [facility] Comment on above: Performed By: #### P 8 ####[address] [address] CRPon 02-07-2017 C reactive protein (CRP) 1.62 mg/dL High 0.00-0.30 [facility] Comment on above: Performed By: #### G FR ####[address] [address] Creatinine Bloodon 7 Creatinine 1.21 mg/dL High 0.67-1.17 [facility] Comment on above: Performed By: #### P 8 ####[address] [address] Hemogram/Diffon 02-07-2017 Basophils Auto #/vol (Bld) 0.05 thou/cmm Normal 0.00-0.08 [facility] Comment on above: Performed By: #### P 8 ####[address] [address] Basophils/100 WBC Auto (Bld) 0.9 % Normal [facility] Comment on above: Performed By: #### P 8 ####[address] [address] Eosinophils 0.23 thou/cmm Normal 0.00-0.41 [facility] Comment on above: Performed By: #### P 8 ####[address] [address] Eosinophils/100 leukocytes 4.0 % Normal [facility] Comment on above: Performed By: #### P 8 ####[facility] [place] [address] Erythrocyte distribution width Auto Ratio (RBC) 15.4 % Normal 11.5-15.9 [facility] Comment on above: Performed By: #### P 8 ####[place] [address] Erythrocytes (RBC) 3.77 mil/cmm Low 4.60-6.20 [facility] Comment on above: Performed By: #### P 8 ####[place] [address] Hematocrit (HCT) 32.2 % Low 42.0-52.0 [facility] Comment on above: Performed By: #### P 8 ####[place] [address] Hemoglobin mass conc (Bld) 10.4 g/dL Low 14.0-18.0 [facility] Comment on above: Performed By: #### P 8 ####[place] [address] Lymphocytes 2.34 thou/cmm Normal 1.50-3.65 [facility] Comment on above: Performed By: #### P 8 ####[place] [address] Lymphocytes/100 leukocytes 40.4 % Normal [facility] Comment on above: Performed By: #### P 8 ####[place] [address] MCH 27.6 pg Normal 27.0-31.0 [facility] Comment on above: Performed By: #### P 8 ####[address] [address] MCHC mass conc (RBC) 32.3 % Normal 32.0-36.0 [facility] Comment on above: Performed By: #### P 8 ####[place] [address] MCV 85.4 fL Normal 80.0-94.0 [facility] Comment on above: Performed By: #### P 8 ####[facility] [place], [place] [address] Monocytes 0.74 thou/cmm Normal 0.20-1.00 [facility] Comment on above: Performed By: #### P 8 ####[address] [address] Monocytes/100 leukocytes 12.8 % Normal [facility] Comment on above: Performed By: #### P 8 ####[address] [address] Platelet mean volume (PMV) 10.0 fL Normal 7.1-10.5 [facility] Comment on above: Performed By: #### P 8 ####[address] [address] Platelets 236 thou/cmm Normal 150-400 [facility] Comment on above: Performed By: #### P 8 ####[address] [address] Seg Neutrophil 41.9 % Normal [facility] Comment on above: Performed By: #### P 8 ####[address] [address] Seg. Neut.# 2.44 thou/cmm Low 3.00-5.67 [facility] Comment on above: Performed By: #### P 8 ####[address] [address] WBC (Leukocytes) 5.8 thou/cmm Normal 4.8-10.8 [facility] Comment on above: Performed By: #### P 8 ####[address] [address] Hepatic Panelon 02-07-2017 Albumin 3.6 g/dL Normal 3.4-5.0 [facility] Comment on above: Performed By: #### P 8 ####[address] [address] Albumin/Globulin Ratio 1.0 {ratio} Normal 0.9-2.4 [facility] Comment on above: Performed By: #### P 8 ####[address], [place] [address] Alkaline phosphatase (ALP) 84 U/L Normal 46-116 [facility] Comment on above: Performed By: #### P 8 ####[address] [address] ALT-SGPT Blood 60 U/L Normal 12-78 [facility] Comment on above: Performed By: #### P 8 ####[facility] [place], [place] [address] AST-SGOT Blood 27 U/L Normal 15-37 [facility] Comment on above: Performed By: #### P 8 ####[address] [address] Bilirubin (direct) 0.11 mg/dL Normal 0.00-0.20 [facility] Comment on above: Performed By: #### P 8 ####[address] [address] Bilirubin (indirect) 0.2 mg/dL Normal 0.0-0.7 [facility] Comment on above: Performed By: #### P 8 ####[address] [address] Bilirubin Ql (U) 0.3 mg/dL Normal 0.2-1.0 [facility] Comment on above: Performed By: #### P 8 ####[address] [address] Protein 7.3 g/dL Normal 6.4-8.2 [facility] Comment on above: Performed By: #### P 8 ####[address] [address] MDRD eGFRon 02-07-2017 eGFR (non-black) mL/min/{1.73_m2} Normal >60mL/m in/1 .73m2 [facility] Comment on above: Result Comment: If t he patient is , multiply the result by 1.210. Performed By: #### P 8 ####[address] [address] CPKon 02-04-2017 CPK 1201 U/L High 39-308 [facility] Comment on above: Performed By: #### P 8 ####[facility] [place], [place] [address] Creatinine Bloodon 7 Creatinine 1.37 mg/dL High 0.67-1.17 [facility] Comment on above: Performed By: #### P 8 ####[facility] [place], [place] [address] MDRD eGFRon 02-04-2017 eGFR (non-black) 58.55 mL/min/{1.73_m2} Normal > 60mL/min/1 .73m2 [facility] Comment on above: Result Comment: If t he patient is , multiply the result by 1.210. Performed By: #### P 8 ####[address] [address] CPKon 02-02-2017 CPK 7387 U/L High 39-308 [facility] Comment on above: Result Comment: Resu lts rechecked. Performed By: #### P 8 ####[address] [address] Creatinine Bloodon 7 Creatinine 1.39 mg/dL High 0.67-1.17 [facility] Comment on above: Performed By: #### C BCD1 ####[address] [address] MDRD eGFRon 02-02-2017 eGFR (non-black) 57.58 mL/min/{1.73_m2} Normal > 60mL/min/1 .73m2 [facility] Comment on above: Result Comment: If t he patient is , multiply the result by 1.210. Performed By: #### P 8 ####[address] [address] Homegoing Instructionson Homegoing Instructions The required clin ical documentation could not be extracted for this report. Please refer to the [facility] Record or contact the HIM Department at [facility] ([phone]) to obtain a copy of this report. Normal [facility] Homegoing Instructions PDF Normal [facility] CPKon 01-31-2017 CPK [address] U/L High 39-308 [facility] Comment on above: Result Comment: Samp le was diluted. Performed By: #### C BCD1 ####[address] [address] CRPon 01-31-2017 C reactive protein (CRP) 1.70 mg/dL High 0.00-0.30 [facility] Comment on above: Performed By: #### C BCD1 ####[address] [address] Creatinine Bloodon 7 Creatinine 1.31 mg/dL High 0.67-1.17 [facility] Comment on above: Performed By: #### C BCD1 ####[address] [address] Hemogram/Diffon 01-31-2017 Basophils Auto #/vol (Bld) 0.05 thou/cmm Normal 0.00-0.08 [facility] Comment on above: Performed By: #### C BCD1 ####[address] [address] Basophils/100 WBC Auto (Bld) 0.9 % Normal [facility] Comment on above: Performed By: #### C BCD1 ####[address] [address] Eosinophils 0.21 thou/cmm Normal 0.00-0.41 [facility] Comment on above: Performed By: #### C BCD1 ####[address] [address] Eosinophils/100 leukocytes 3.8 % Normal [facility] Comment on above: Performed By: #### C BCD1 ####[address] [address] Erythrocyte distribution width Auto Ratio (RBC) 15.1 % Normal 11.5-15.9 [facility] Comment on above: Performed By: #### C BCD1 ####[address] [address] Erythrocytes (RBC) 3.82 mil/cmm Low 4.60-6.20 [facility] Comment on above: Performed By: #### C BCD1 ####[address] [address] Hematocrit (HCT) 32.5 % Low 42.0-52.0 [facility] Comment on above: Performed By: #### C BCD1 ####[address] [address] Hemoglobin mass conc (Bld) 10.3 g/dL Low 14.0-18.0 [facility] Comment on above: Performed By: #### C BCD1 ####[address] [address] Lymphocytes 2.13 thou/cmm Normal 1.50-3.65 [facility] Comment on above: Performed By: #### C BCD1 ####[address] [address] Lymphocytes/100 leukocytes 38.8 % Normal [facility] Comment on above: Performed By: #### C BCD1 ####[address] [address] MCH 27.0 pg Normal 27.0-31.0 [facility] Comment on above: Performed By: #### C BCD1 ####[address] [address] MCHC mass conc (RBC) 31.7 % Low 32.0-36.0 [facility] Comment on above: Performed By: #### C BCD1 ####[address] [address] MCV 85.1 fL Normal 80.0-94.0 [facility] Comment on above: Performed By: #### C BCD1 ####[address] [address] Monocytes 0.72 thou/cmm Normal 0.20-1.00 [facility] Comment on above: Performed By: #### C BCD1 ####[address] [address] Monocytes/100 leukocytes 13.1 % Normal [facility] Comment on above: Performed By: #### C BCD1 ####[facility] [place], [place] [address] Platelet mean volume (PMV) 10.1 fL Normal 7.1-10.5 [facility] Comment on above: Performed By: #### C BCD1 ####[address] [address] Platelets 235 thou/cmm Normal 150-400 [facility] Comment on above: Performed By: #### C BCD1 ####[address] [address] Seg Neutrophil 43.4 % Normal [facility] Comment on above: Performed By: #### C BCD1 ####[address] [address] Seg. Neut.# 2.39 thou/cmm Low 3.00-5.67 [facility] Comment on above: Performed By: #### C BCD1 ####[address] [address] WBC (Leukocytes) 5.5 thou/cmm Normal 4.8-10.8 [facility] Comment on above: Performed By: #### C BCD1 ####[address] [address] Hepatic Panelon 01-31-2017 Albumin 3.7 g/dL Normal 3.4-5.0 [facility] Comment on above: Performed By: #### C BCD1 ####[address] [address] Albumin/Globulin Ratio 0.9 {ratio} Normal 0.9-2.4 [facility] Comment on above: Performed By: #### C BCD1 ####[address] [address] Alkaline phosphatase (ALP) 84 U/L Normal 46-116 [facility] Comment on above: Performed By: #### C BCD1 ####[address] [address] ALT-SGPT Blood 144 U/L High 12-78 [facility] Comment on above: Performed By: #### C BCD1 ####[address] [address] AST-SGOT Blood 464 U/L High 15-37 [facility] Comment on above: Performed By: #### C BCD1 ####[address] [address] Bilirubin (direct) mg/dL Normal 0.00-0.20 [facility] Comment on above: Performed By: #### C BCD1 ####[address] [address] Bilirubin (indirect) 0.3 mg/dL Normal 0.0-0.7 [facility] Comment on above: Performed By: #### C BCD1 ####[address] [address] Bilirubin Ql (U) 0.4 mg/dL Normal 0.2-1.0 [facility] Comment on above: Performed By: #### C BCD1 ####[address] [address] Protein 7.7 g/dL Normal 6.4-8.2 [facility] Comment on above: Performed By: #### C BCD1 ####[address] [address] MDRD eGFRon 01-31-2017 eGFR (non-black) mL/min/{1.73_m2} Normal >60mL/m in/1 .73m2 [facility] Comment on above: Result Comment: If t he patient is , multiply the result by 1.210. Performed By: #### C BCD1 ####[address] [address] Anti-Streptolysin Oon 2016 Anti-Streptolysin O SEE BELOW Normal [facility] Comment on above: Result Comment: Anti -Streptolysin O 369 H <201 IU/mLPerforming Laboratory:[facility] [address] [place] [address] Performed By: #### C BCD1 ####[address] [address] Teichoic Acid ABon 7 Teichoic Acid AB SEE BELOW Normal [facility] Comment on above: Result Comment: Teic hoic Acid AB 1:8 AReference range: Not Detected(NOTE)INTERPRETIVE INFORMATION: Teichoic Acid AbsTiters of 1:2 or greater indicate possible deep seated S. aureusinfection.Performed by [facility],[address] [place] [id number] [email or web address], Bon Borges MD, Lab. DirectorPerforming Laboratory: Performed By: #### C BCD1 ####[address] [address] Comprehensive Panelon 2016 Alkaline phosphatase (ALP) 70 U/L Normal 46-116 [facility] Comment on above: Performed By: #### E SR ####[address] [address] Bilirubin Ql (U) 0.3 mg/dL Normal 0.2-1.0 [facility] Comment on above: Performed By: #### E SR ####[address] [address] Protein 7.3 g/dL Normal 6.4-8.2 [facility] Comment on above: Performed By: #### E SR ####[address] [address] Aspartate aminotransferase (AST) 13 U/L Normal 9-37 [facility] Comment on above: Performed By: #### E SR ####[address] [address] Alanine aminotransferase (ALT) 25 U/L Normal 12-78 [facility] Comment on above: Performed By: #### E SR ####[address] [address] Creatinine 1.38 mg/dL High 0.67-1.17 [facility] Comment on above: Performed By: #### E SR ####[address] [address] Urea nitrogen 38 mg/dL High 7-18 [facility] Comment on above: Performed By: #### E SR ####[facility] [place], [place] [address] Albumin 3.2 g/dL Low 3.4-5.0 [facility] Comment on above: Performed By: #### E SR ####[facility] [place], [place] [address] Glucose mass conc 109 mg/dL High 70-99 [facility] Comment on above: Performed By: #### E SR ####[facility] [place], [place] [address] Calcium 9.0 mg/dL Normal 8.5-10.1 [facility] Comment on above: Performed By: #### E SR ####[address] [address] Anion gap 11 mmol/L Normal 8-16 [facility] Comment on above: Performed By: #### E SR ####[address] [address] CO2 26 mmol/L Normal 21-32 [facility] Comment on above: Performed By: #### E SR ####[address] [address] Chloride 105 mmol/L Normal 98-107 [facility] Comment on above: Performed By: #### E SR ####[address] [address] Potassium molar conc 4.3 mmol/L Normal 3.5-5.1 [facility] Comment on above: Performed By: #### E SR ####[address] [address] Sodium 138 mmol/L Normal 136-145 [facility] Comment on above: Performed By: #### E SR ####[address] [address] MDRD GFRon 01-19-2017 eGFR (non-black) 54.63 mL/min/{1.73_m2} Normal > 60mL/min/1 .73m2 [facility] Comment on above: Result Comment: If t he patient is , multiply the result by 1.210. Performed By: #### E SR ####[facility] [place], [place] [address] Basic Panelon 01-18-2017 Creatinine 1.78 mg/dL High 0.67-1.17 [facility] Comment on above: Performed By: #### E SR ####[facility] [place], [place] [address] Anion gap 13 mmol/L Normal 8-16 [facility] Comment on above: Performed By: #### E SR ####[facility] [place], [place] [address] CO2 25 mmol/L Normal 21-32 [facility] Comment on above: Performed By: #### E SR ####[address] [address] Glucose mass conc 99 mg/dL Normal 70-99 [facility] Comment on above: Performed By: #### E SR ####[address] [address] Urea nitrogen 46 mg/dL High 7-18 [facility] Comment on above: Performed By: #### E SR ####[address] [address] Calcium 9.0 mg/dL Normal 8.5-10.1 [facility] Comment on above: Performed By: #### E SR ####[address] [address] Chloride 102 mmol/L Normal 98-107 [facility] Comment on above: Performed By: #### E SR ####[facility] [place], [place] [address] Potassium molar conc 4.1 mmol/L Normal 3.5-5.1 [facility] Comment on above: Performed By: #### E SR ####[address] [address] Sodium 136 mmol/L Normal 136-145 [facility] Comment on above: Performed By: #### E SR ####[address] [address] Hemogramon 01-18-2017 Erythrocyte distribution width Auto Ratio (RBC) 14.7 % High 11.6-14.4 [facility] Comment on above: Performed By: #### E SR ####[facility] [place] [address] Erythrocytes (RBC) 3.77 mil/cmm Low 4.63-6.08 [facility] Comment on above: Performed By: #### E SR ####[place] [address] Hematocrit (HCT) 31.8 % Low 40.1-51.0 [facility] Comment on above: Performed By: #### E SR ####[place] [address] Hemoglobin mass conc (Bld) 10.0 g/dL Low 13.7-17.5 [facility] Comment on above: Performed By: #### E SR ####[place] [address] MCH 26.5 pg Normal 25.7-32.2 [facility] Comment on above: Performed By: #### E SR ####[place] [address] MCHC mass conc (RBC) 31.4 % Low 32.3-36.5 [facility] Comment on above: Performed By: #### E SR ####[place] [address] MCV 84.4 fL Normal 83.2-95.6 [facility] Comment on above: Performed By: #### E SR ####[place] [address] Platelet mean volume (PMV) 9.8 fL Normal 8.7-12.0 [facility] Comment on above: Performed By: #### E SR ####[place] [address] Platelets 256 thou/cmm Normal 141-365 [facility] Comment on above: Performed By: #### E SR ####[place] [address] RDW SD 45.0 fl Normal 36.1-45.8 [facility] Comment on above: Performed By: #### E SR ####[facility] [place], [place] [address] WBC (Leukocytes) 7.82 thou/cmm Normal 4.23-9.07 [facility] Comment on above: Performed By: #### E SR ####[facility] [place], [place] [address] MDRD GFRon 01-18-2017 eGFR (non-black) 40.73 mL/min/{1.73_m2} Normal > 60mL/min/1 .73m2 [facility] Comment on above: Result Comment: If t he patient is , multiply the result by 1.210. Performed By: #### E SR ####[facility] [place], [place] [address] PICC LINE INSERTION [id number] 01-18-2017 PICC LINE INSERTION 12261 Performed at [facility] APPROVED BY: JOHN SANDERS MD EXAM TITLE: PICC LINE PLACEMENT DATE: 01/18/2017 14:10 COMPARISON: None. CLINICAL INDICATION/HISTORY: Patient or 51-year-old male with need for long-term antibiotics. TECHNIQUE: All elements of maximal barrier technique including mask, sterile gown, sterile gloves, large sterile drape, appropriate hand hygiene, and appropriate prep agent were utilized. A PICC line was then placed by the [facility] nursing PICC team without added supervision by the interventionalist in special procedures. The PICC catheter entry site is the right brachial vein. The tip of the PICC catheter is in the SVC right atrial junction. The PICC line has been secured to the skin, bandaged, and flushed with appropriate saline and is ready for use. IMPRESSION: Technically successful placement of PICC line by the [facility] nursing PICC team. Normal [facility] Basic Panelon 01-15-2017 Anion gap 12 mmol/L Normal 8-16 [facility] Comment on above: Performed By: #### P 8 ####[address] [address] Potassium molar conc 4.7 mmol/L Normal 3.5-5.1 [facility] Comment on above: Result Comment: SPEC IMEN SLIGHTLY HEMOLYZED Performed By: #### P 8 ####[facility] [place], [place] [address] Creatinine 1.19 mg/dL High 0.67-1.17 [facility] Comment on above: Performed By: #### P 8 ####[facility] [place], [place] [address] Glucose mass conc 128 mg/dL High 70-99 [facility] Comment on above: Performed By: #### P 8 ####[facility] [place], [place] [address] Urea nitrogen 33 mg/dL High 7-18 [facility] Comment on above: Performed By: #### P 8 ####[address] [address] Calcium 8.7 mg/dL Normal 8.5-10.1 [facility] Comment on above: Performed By: #### P 8 ####[place] [address] CO2 26 mmol/L Normal 21-32 [facility] Comment on above: Performed By: #### P 8 ####[address] [address] Chloride 101 mmol/L Normal 98-107 [facility] Comment on above: Performed By: #### P 8 ####[address] [address] Sodium 134 mmol/L Low 136-145 [facility] Comment on above: Performed By: #### P 8 ####[address] [address] Cult Bloodon 01-15-2017 Cult Blood Test performed at [facility] No growth Normal [facility] Comment on above: Performed By: #### C _BLO ####[address] [address] Cult Urineon 01-15-2017 Cult Urine Test performed at [facility] Mixed skin beverly. No further identification or susceptibility testing will be performed. Please submit a new specimen. Plates will be held for 5 days. Normal [facility] Comment on above: Performed By: #### E SR ####[facility] [place], [place] [address] Cult and Smr ISAK and AERon 0 01-15-2017 Cult and Smr ISAK and AER Test performed at [facility] No anaerobic organisms cultured No WBC seen No organisms seen Smear difficult to evaluate due to small amount of specimen. ORGANISM: Staphylococcus species not aureus (ID: 1) Subcultured only Normal [facility] Comment on above: Performed By: #### E SR ####[facility] [place] [place], [place] [address] EPIDURAL INJECTION LUMBAR 62 323on 01-15-2017 EPIDURAL INJECTION LUMBAR [id number] Performed at [facility] APPROVED BY: REA LOWE MD PROCEDURE: FLUOROSCOPIC GUIDED L4-L5 INTERVERTEBRAL DISC BIOPSY DATE: 01/15/2017 INDICATION: Suspected L4-L5 discitis/osteomyelitis ENCOUNTER: Initial COMPARISON: MRI examination the lumbar spine with and without contrast performed at outside hospital dated 01/14/2017. X-ray examination of the lumbar spine dated 09/23/2016. CT examination the lumbar spine without contrast dated 12/23/2016. TECHNIQUE/FINDINGS: The procedure was performed in the VIR Suite following informed consent and a Time Out. Informed consent was obtained from the patient. The patient was evaluated for the safety and appropriateness of conscious sedation and the Moderate Sedation Record was completed. The patient was sedated with intravenous Fentanyl and Versed administered by the radiology nurses. Please refer to nursing notes for medication dosages. The patient's vital signs were monitored during the procedure by the radiology nurses. TRISH-PROCEDURE DISCUSSION: The appropriate elements of the pre-procedure discussion, safety check list and sign-out were performed. Patient position: ProneAnesthesia: Moderate conscious sedation. Continuous cardiopulmonary monitoring was performed throughout the procedure during which the patient received IV Versed and IV Fentanyl for conscious sedation. Local anesthesia: 2% Lidocaine Total intraservice time (monitoring for moderate sedation) was 30 minutes. Patient monitoring: Supervised observer Image guidance: Fluoroscopic and sonographic guidance. Total Fluoroscopy time: 2.1 MinutesEffective Radiation dose: 222 mGy Fluoroscopic examination of the lumbar spine was performed. Images were saved in the PACS system. Site was then prepped and draped in usual sterile fashion. Using direct fluoroscopic guidance, 1% lidocaine was injected for local anesthesia and a 17-gauge guide needle was advanced to the periphery of the right L4-L5 disc space via posterolateral approach. 17-gauge core biopsy specimens were then obtained under direct fluoroscopic guidance and images were saved to the PACS system. Guiding needle was then removed. Specimens were placed in formalin for pathologic analysis and in sterile cup with sterile saline for culture. Sterile dressings were applied. Patient tolerated procedure well without immediate complication. Images were saved in place in the PACS system. FINDINGS: Again demonstrated are postsurgical changes from previous L4-L5 posterior fusion with placement of interbody cage at the L4-L5 interspace. Cortical lucencies involving the L4 and L5 endplates, compatible with previously described osteomyelitis/discitis. Status post successful fluoroscopic-guided L4-L5 intervertebral disc biopsy as described above. 18-gauge core biopsy specimens were obtained. IMPRESSION: Successful fluoroscopic-guided L4-L5 disc core biopsy as described. Core biopsy specimens sent to laboratory for analysis. Normal [facility] Hemogram/Diffon 01-15-2017 Basophils Auto #/vol (Bld) 0.03 thou/cmm Normal 0.01-0.08 [facility] Comment on above: Performed By: #### C BCD1 ####[address] [address] Basophils/100 WBC Auto (Bld) 0.4 % Normal [facility] Comment on above: Performed By: #### C BCD1 ####[address] [address] Eosinophils 0.15 thou/cmm Normal 0.04-0.54 [facility] Comment on above: Performed By: #### C BCD1 ####[address] [address] Eosinophils/100 leukocytes 1.9 % Normal [facility] Comment on above: Performed By: #### C BCD1 ####[address] [address] Erythrocyte distribution width Auto Ratio (RBC) 14.6 % High 11.6-14.4 [facility] Comment on above: Performed By: #### C BCD1 ####[address] [address] Erythrocytes (RBC) 4.10 mil/cmm Low 4.63-6.08 [facility] Comment on above: Performed By: #### C BCD1 ####[place] [address] Hematocrit (HCT) 33.7 % Low 40.1-51.0 [facility] Comment on above: Performed By: #### C BCD1 ####[place] [address] Hemoglobin mass conc (Bld) 10.8 g/dL Low 13.7-17.5 [facility] Comment on above: Performed By: #### C BCD1 ####[place] [address] Immature Grans 0.30 % Normal [facility] Comment on above: Performed By: #### C BCD1 ####[place] [address] Immature Grans # 0.02 thou/cmm Normal 0.00-0.05 [facility] Comment on above: Performed By: #### C BCD1 ####[place] [address] Lymphocytes 2.49 thou/cmm Normal 0.84-2.85 [facility] Comment on above: Performed By: #### C BCD1 ####[place] [address] Lymphocytes/100 leukocytes 31.9 % Normal [facility] Comment on above: Performed By: #### C BCD1 ####[place] [address] MCH 26.3 pg Normal 25.7-32.2 [facility] Comment on above: Performed By: #### C BCD1 ####[place] [address] MCHC mass conc (RBC) 32.0 % Low 32.3-36.5 [facility] Comment on above: Performed By: #### C BCD1 ####[place] [address] MCV 82.2 fL Low 83.2-95.6 [facility] Comment on above: Performed By: #### C BCD1 ####[facility] [place], [place] [address] Monocytes 0.78 thou/cmm Normal 0.30-0.82 [facility] Comment on above: Performed By: #### C BCD1 ####[address] [address] Monocytes/100 leukocytes 10.0 % Normal [facility] Comment on above: Performed By: #### C BCD1 ####[address] [address] Platelet mean volume (PMV) 9.8 fL Normal 8.7-12.0 [facility] Comment on above: Performed By: #### C BCD1 ####[address] [address] Platelets 297 thou/cmm Normal 141-365 [facility] Comment on above: Performed By: #### C BCD1 ####[address] [address] RDW SD 43.8 fl Normal 36.1-45.8 [facility] Comment on above: Performed By: #### C BCD1 ####[address] [address] Seg Neutrophil 55.5 % Normal [facility] Comment on above: Performed By: #### C BCD1 ####[address] [address] Seg. Neut.# 4.33 thou/cmm Normal 1.78-5.38 [facility] Comment on above: Performed By: #### C BCD1 ####[address] [address] WBC (Leukocytes) 7.80 thou/cmm Normal 4.23-9.07 [facility] Comment on above: Performed By: #### C BCD1 ####[address] [address] MDRD GFRon 01-15-2017 eGFR (non-black) mL/min/{1.73_m2} Normal >60mL/m in/1 .73m2 [facility] Comment on above: Result Comment: If t he patient is , multiply the result by 1.210. Performed By: #### G FR ####[facility] [place], [place] [address] PERC ASPIRATION DISC [id number] 01-15-2017 PERC ASPIRATION DISC [id number] Performed at [facility] APPROVED BY: REA LOWE MD PROCEDURE: FLUOROSCOPIC GUIDED L4-L5 INTERVERTEBRAL DISC BIOPSY DATE: 01/15/2017 INDICATION: Suspected L4-L5 discitis/osteomyelitis ENCOUNTER: Initial COMPARISON: MRI examination the lumbar spine with and without contrast performed at outside hospital dated 01/14/2017. X-ray examination of the lumbar spine dated 09/23/2016. CT examination the lumbar spine without contrast dated 12/23/2016. TECHNIQUE/FINDINGS: The procedure was performed in the VIR Suite following informed consent and a Time Out. Informed consent was obtained from the patient. The patient was evaluated for the safety and appropriateness of conscious sedation and the Moderate Sedation Record was completed. The patient was sedated with intravenous Fentanyl and Versed administered by the radiology nurses. Please refer to nursing notes for medication dosages. The patient's vital signs were monitored during the procedure by the radiology nurses. TRISH-PROCEDURE DISCUSSION: The appropriate elements of the pre-procedure discussion, safety check list and sign-out were performed. Patient position: ProneAnesthesia: Moderate conscious sedation. Continuous cardiopulmonary monitoring was performed throughout the procedure during which the patient received IV Versed and IV Fentanyl for conscious sedation. Local anesthesia: 2% Lidocaine Total intraservice time (monitoring for moderate sedation) was 30 minutes. Patient monitoring: Supervised observer Image guidance: Fluoroscopic and sonographic guidance. Total Fluoroscopy time: 2.1 MinutesEffective Radiation dose: 222 mGy Fluoroscopic examination of the lumbar spine was performed. Images were saved in the PACS system. Site was then prepped and draped in usual sterile fashion. Using direct fluoroscopic guidance, 1% lidocaine was injected for local anesthesia and a 17-gauge guide needle was advanced to the periphery of the right L4-L5 disc space via posterolateral approach. 17-gauge core biopsy specimens were then obtained under direct fluoroscopic guidance and images were saved to the PACS system. Guiding needle was then removed. Specimens were placed in formalin for pathologic analysis and in sterile cup with sterile saline for culture. Sterile dressings were applied. Patient tolerated procedure well without immediate complication. Images were saved in place in the PACS system. FINDINGS: Again demonstrated are postsurgical changes from previous L4-L5 posterior fusion with placement of interbody cage at the L4-L5 interspace. Cortical lucencies involving the L4 and L5 endplates, compatible with previously described osteomyelitis/discitis. Status post successful fluoroscopic-guided L4-L5 intervertebral disc biopsy as described above. 18-gauge core biopsy specimens were obtained. IMPRESSION: Successful fluoroscopic-guided L4-L5 disc core biopsy as described. Core biopsy specimens sent to laboratory for analysis. Normal [facility] Urinalysis Routineon 017 Ep Cells Urine 2.4 /hpf Normal 0.0-5.0 [facility] Comment on above: Performed By: #### U RIN2 ####[place] [address] Hyaline Cast 0.3 /lpf Normal 0.0-1.0 [facility] Comment on above: Performed By: #### U RIN2 ####[place] [address] Urine, bacteria in sediment NONE Normal None [facility] Comment on above: Performed By: #### U RIN2 ####[place] [address] Urine, erythrocytes in sediment by area 1.1 /[HPF] Normal 0.0-5.0 [facility] Comment on above: Performed By: #### U RIN2 ####[place] [address] Urine, leukocytes in sedmiment 0.3 /[HPF] Normal 0.0-5.0 [facility] Comment on above: Performed By: #### U RIN2 ####[address] [address] Bilirubin Urine Negative Normal Negative [facility] Comment on above: Performed By: #### U RIN2 ####[place] [address] Hemoglobin,Urine Negative Normal Negative [facility] Comment on above: Performed By: #### U RIN2 ####[facility] [place], [place] [address] Ketone Urine Negative Normal Negative [facility] Comment on above: Performed By: #### U RIN2 ####[address] [address] Nitrites Urine Negative Normal Negative [facility] Comment on above: Performed By: #### U RIN2 ####[address] [address] Protein Urine Negative Normal Negative [facility] Comment on above: Performed By: #### U RIN2 ####[address] [address] Specific [place], Ur 1.012 Normal 1.005-1.030 [facility] Comment on above: Performed By: #### U RIN2 ####[address] [address] Urine, appearance CLEAR Normal [facility] Comment on above: Performed By: #### U RIN2 ####[address] [address] Urine, color YELLOW Normal [facility] Comment on above: Performed By: #### U RIN2 ####[address] [address] Urine, glucose presence Negative Normal Negative [facility] Comment on above: Performed By: #### U RIN2 ####[address] [address] Urine, pH 6.5 [pH] Normal 5.0-8.0 [facility] Comment on above: Performed By: #### U RIN2 ####[address] [address] Urobilinogen,Ur 1.0 EU/dL Normal 0.0-1.0 [facility] Comment on above: Performed By: #### U RIN2 ####[address] [address] WBC (Leukocytes) Negative Normal Negative [facility] Comment on above: Performed By: #### U RIN2 ####[address] [place], [place] [address] CRPon 01-14-2017 C reactive protein (CRP) 5.49 mg/dL High 0.00-0.30 [facility] Comment on above: Performed By: #### C RP3 ####[facility] [place], [place] [address] Cult Bloodon 01-14-2017 Cult Blood Test performed at [facility] No growth Normal [facility] Comment on above: Performed By: #### C _BLO ####[facility] [place], [place] [address] Sed Rateon 01-14-2017 Sed Rate 78 mm/hr High 0-14 [facility] Comment on above: Performed By: #### E SR ####[place] [id number] Surgical Tissue Examon 01-14 Surgical Tissue Exam Test performed at [place] [address]NAME: MELISSA ELIAS [id number] REQUESTING: OMARI RABAGO M.D.FINAL DIAGNOSIS:SPINE AT L4-5, BIOPSIES - FRAGMENTS OF REACTIVE SYNOVIUM AND BENIGNFIBROCARTILAGINOUS TISSUES WITH VERY FOCAL MILD INFLAMMATION. SEECOMMENT.COMMENT: Several of the fragments containing very mild infiltrateconsisting of scattered eosinophils and neutrophils.OPERATIVE PROCEDURE:Fluoroscopic guided L4-L5 disc aspiration / biopsyCLINICAL INFORMATION:Suspected L4-L5 discitis / osteomyelitisGROSS DESCRIPTION:18g core biopsy specimensReceived in formalin labeled spine biopsy L4-5 are five white to redsoft cylindrical segments and fragments of tissue consistent withcores, which range from 0.1 x 0.1 to 1.5 x 0.1 cm and are totallysubmitted in one cassette. BMP:benjy RAMIREZ M.D., PATHOLOGIST(Electronic signature on file)Signed out: 01/19/2017 13:02PRINTED: 01/19/2017 Page 1 of 1 Normal [facility] Comment on above: Performed By: #### E SR ####[place] [address] Vital Signs Date Time Vital Sign Value Performing Clinician Facility 11-09-2024 09:23-0400 Body mass index (BMI) [Ratio] 43.3 kg/m2 Dr. Rocio Bartlett MD Work Phone: [facility] 11-09-2024 09:23-0400 Body temperature 98.4 [degF] Dr. Rocio Bartlett MD Work Phone: [facility] 11-09-2024 09:23-0400 Diastolic blood pressure 74 mm[Hg] Dr. Rocio Bartlett MD Work Phone: [facility] 11-09-2024 09:23-0400 Heart rate 104 /min Dr. Rocio Bartlett MD Work Phone: [facility] 11-09-2024 09:23-0400 Inhaled oxygen flow rate 2 L/min Dr. Rocio Bartlett MD Work Phone: [facility] 11-09-2024 09:23-0400 Respiratory rate 18 /min Dr. Rocio Bartlett MD Work Phone: [facility] 11-09-2024 09:23-0400 Systolic blood pressure 118 mm[Hg] Dr. Rocio Bartlett MD Work Phone: [facility] 11-02-2024 00:33-0400 Body temperature 98.3 [degF] Dr. Rocio Bartlett MD Work Phone: [facility] 11-02-2024 00:33-0400 Diastolic blood pressure 77 mm[Hg] Dr. Rocio Bartlett MD Work Phone: [facility] 11-02-2024 00:33-0400 Heart rate 97 /min Dr. Rocio Bartlett MD Work Phone: [facility] 11-02-2024 00:33-0400 Inhaled oxygen flow rate 5 L/min Dr. Rocio Bartlett MD Work Phone: [facility] 11-02-2024 00:33-0400 Respiratory rate 19 /min Dr. Rocio Bartlett MD Work Phone: [facility] 11-02-2024 00:33-0400 SaO2% (BldA) [Mass fraction] 93 % Dr. Rocio Bartlett MD Work Phone: [facility] 11-02-2024 00:33-0400 Systolic blood pressure 148 mm[Hg] Dr. Rocio Bartlett MD Work Phone: [facility] 11-01-2024 17:28-0400 Body temperature 98.6 [degF] Dr. Rocio Bartlett MD Work Phone: [facility] 11-01-2024 17:28-0400 Diastolic blood pressure 75 mm[Hg] Dr. Rocio Bartlett MD Work Phone: [facility] 11-01-2024 17:28-0400 Heart rate 103 /min Dr. Rocio Bartlett MD Work Phone: [facility] 11-01-2024 17:28-0400 Inhaled oxygen flow rate 5 L/min Dr. Rocio Bartlett MD Work Phone: [facility] 11-01-2024 17:28-0400 Respiratory rate 18 /min Dr. Rocio Bartlett MD Work Phone: [facility] 11-01-2024 17:28-0400 SaO2% (BldA) [Mass fraction] 90 % Dr. Rocio Bartlett MD Work Phone: [facility] 11-01-2024 17:28-0400 Systolic blood pressure 135 mm[Hg] Dr. Rocio Bartlett MD Work Phone: [facility] 11-01-2024 05:40-0400 Inhaled oxygen concentration 40 % Dr. Rocio Bartlett MD Work Phone: [facility] 10-30-2024 12:14-0400 Body height 170.[address] Rocio Bartlett MD Work Phone: [facility] 10-30-2024 12:14-0400 Body weight 137.[address] Rocio Bartlett MD Work Phone: [facility] 10-29-2024 15:46-0400 Body mass index (BMI) [Ratio] 47.5 kg/m2 Dr. Rocio Bartlett MD Work Phone: [facility] 10-29-2024 14:23-0400 Inhaled oxygen concentration 40 % Dr. Rocio Bartlett MD Work Phone: [facility] 10-29-2024 14:23-0400 SaO2% (BldA) [Mass fraction] 93 % Dr. Rocio Bartlett MD Work Phone: [facility] 10-29-2024 14:15-0400 Heart rate 99 /min Dr. Rocio Bartlett MD Work Phone: [facility] 10-29-2024 14:15-0400 Respiratory rate 20 /min Dr. Rocio Bartlett MD Work Phone: [facility] 10-29-2024 14:00-0400 Body temperature 98 [degF] Dr. Rocio Bartlett MD Work Phone: [facility] 10-29-2024 14:00-0400 Diastolic blood pressure 58 mm[Hg] Dr. Rocio Bartlett MD Work Phone: [facility] 10-29-2024 14:00-0400 Inhaled oxygen flow rate 6 L/min Dr. Rocio Bartlett MD Work Phone: [facility] 10-29-2024 14:00-0400 Systolic blood pressure 112 mm[Hg] Dr. Rocio Bartlett MD Work Phone: [facility] 10-29-2024 10:22-0400 Body height 170.[address] Rocio Bartlett MD Work Phone: [facility] 10-29-2024 10:22-0400 Body mass index (BMI) [Ratio] 51 kg/m2 Dr. Rocio Bartlett MD Work Phone: [facility] 10-29-2024 10:22-0400 Body weight [address] Rocio Bartlett MD Work Phone: [facility] 10-26-2024 09:12-0400 Body mass index (BMI) [Ratio] 43.3 kg/m2 Dr. Rocio Bartlett MD Work Phone: [facility] 10-26-2024 09:12-0400 Body temperature 97.5 [degF] Dr. Rocio Bartlett MD Work Phone: [facility] 10-26-2024 09:12-0400 Diastolic blood pressure 75 mm[Hg] Dr. Rocio Bartlett MD Work Phone: [facility] 10-26-2024 09:12-0400 Heart rate 104 /min Dr. Rocio Bartlett MD Work Phone: [facility] 10-26-2024 09:12-0400 Inhaled oxygen concentration 89 % Dr. Rocio Bartlett MD Work Phone: [facility] 10-26-2024 09:12-0400 Inhaled oxygen flow rate 6 L/min Dr. Rocio Bartlett MD Work Phone: [facility] 10-26-2024 09:12-0400 Respiratory rate 20 /min Dr. Rocio Bartlett MD Work Phone: [facility] 10-26-2024 09:12-0400 Systolic blood pressure 123 mm[Hg] Dr. Rocio Bartlett MD Work Phone: [facility] 10-16-2024 15:40-0400 Heart rate 103 /min Dr. Rocio Bartlett MD Work Phone: [facility] 10-16-2024 15:40-0400 Respiratory rate 22 /min Dr. Rocio Bartlett MD Work Phone: [facility] 10-16-2024 13:29-0400 Body temperature 97.9 [degF] Dr. Rocio Bartlett MD Work Phone: [facility] 10-16-2024 13:29-0400 Diastolic blood pressure 68 mm[Hg] Dr. Rocio Bartlett MD Work Phone: [facility] 10-16-2024 13:29-0400 Inhaled oxygen flow rate 5 L/min Dr. Rocio Bartlett MD Work Phone: [facility] 10-16-2024 13:29-0400 SaO2% (BldA) [Mass fraction] 94 % Dr. Rocio Bartlett MD Work Phone: [facility] 10-16-2024 13:29-0400 Systolic blood pressure 132 mm[Hg] Dr. Rocio Bartlett MD Work Phone: [facility] 10-16-2024 08:04-0400 Inhaled oxygen concentration 40 % Dr. Rocio Bartlett MD Work Phone: [facility] 10-16-2024 03:00-0400 Body mass index (BMI) [Ratio] 51.4 kg/m2 Dr. Rocio Bartlett MD Work Phone: [facility] 10-16-2024 03:00-0400 Body weight [address] Rocio Bartlett MD Work Phone: [facility] 10-15-2024 14:17-0400 Body height 170.[address] Rocio Bartlett MD Work Phone: [facility] 10-14-2024 00:14-0400 Body mass index (BMI) [Ratio] 43.3 kg/m2 Dr. Rocio Bartlett MD Work Phone: [facility] 10-14-2024 00:14-0400 Body temperature 97.4 [degF] Dr. Rocio Bartlett MD Work Phone: [facility] 10-14-2024 00:14-0400 Body weight 141.[address] Rocio Bartlett MD Work Phone: [facility] 10-14-2024 00:14-0400 Diastolic blood pressure 70 mm[Hg] Dr. Rocio Bartlett MD Work Phone: [facility] 10-14-2024 00:14-0400 Heart rate 105 /min Dr. Rocio Bartlett MD Work Phone: [facility] 10-14-2024 00:14-0400 Inhaled oxygen flow rate 2 L/min Dr. Rocio Bartlett MD Work Phone: [facility] 10-14-2024 00:14-0400 Respiratory rate 18 /min Dr. Rocio Bartlett MD Work Phone: [facility] 10-14-2024 00:14-0400 SaO2% (BldA) [Mass fraction] 96 % Dr. Rocio Bartlett MD Work Phone: [facility] 10-14-2024 00:14-0400 Systolic blood pressure 136 mm[Hg] Dr. Rocio Bartlett MD Work Phone: [facility] 10-13-2024 23:04-0400 Heart rate 98 /min Dr. Rocio Bartlett MD Work Phone: [facility] 10-13-2024 23:04-0400 Inhaled oxygen concentration 55 % Dr. Rocio Bartlett MD Work Phone: [facility] 10-13-2024 23:04-0400 Respiratory rate 20 /min Dr. Rocio Bartlett MD Work Phone: [facility] 10-13-2024 23:04-0400 SaO2% (BldA) [Mass fraction] 90 % Dr. Rocio Bartlett MD Work Phone: [facility] 10-13-2024 20:06-0400 Body temperature 97.8 [degF] Dr. Rocio Bartlett MD Work Phone: [facility] 10-13-2024 20:06-0400 Diastolic blood pressure 88 mm[Hg] Dr. Rocio Bartlett MD Work Phone: [facility] 10-13-2024 20:06-0400 Inhaled oxygen flow rate 50 L/min Dr. Rocio Bartlett MD Work Phone: [facility] 10-13-2024 20:06-0400 Systolic blood pressure 158 mm[Hg] Dr. Rocio Bartlett MD Work Phone: [facility] 10-13-2024 04:45-0400 Body mass index (BMI) [Ratio] 52.4 kg/m2 Dr. Rocio Bartlett MD Work Phone: [facility] 10-13-2024 04:45-0400 Body weight [address] Rocio Bartlett MD Work Phone: [facility] 10-12-2024 09:00-0400 Body temperature 98 [degF] Dr. Rocio Bartlett MD Work Phone: [facility] 10-12-2024 09:00-0400 Diastolic blood pressure 78 mm[Hg] Dr. Rocio Bartlett MD Work Phone: [facility] 10-12-2024 09:00-0400 Heart rate 100 /min Dr. Rocio Bartlett MD Work Phone: [facility] 10-12-2024 09:00-0400 Respiratory rate 20 /min Dr. Rocio Bartlett MD Work Phone: [facility] 10-12-2024 09:00-0400 SaO2% (BldA) [Mass fraction] 96 % Dr. Rocio Bartlett MD Work Phone: [facility] 10-12-2024 09:00-0400 Systolic blood pressure 161 mm[Hg] Dr. Rocio Bartlett MD Work Phone: [facility] 10-12-2024 08:27-0400 Inhaled oxygen flow rate 10 L/min Dr. Rocio Bartlett MD Work Phone: [facility] 10-12-2024 07:28-0400 Body height 180.[address] Rocio Bartlett MD Work Phone: [facility] 10-12-2024 07:28-0400 Body mass index (BMI) [Ratio] 47.1 kg/m2 Dr. Rocio Bartlett MD Work Phone: [facility] 10-12-2024 07:28-0400 Body weight 153.[address] Rocio Bartlett MD Work Phone: [facility] 09-28-2024 09:20-0400 Body mass index (BMI) [Ratio] 43.3 kg/m2 Dr. Rocio Bartlett MD Work Phone: [facility] 09-28-2024 09:20-0400 Body temperature 97.4 [degF] Dr. Rocio Bartlett MD Work [facility] [facility] 09-28-2024 09:20-0400 Diastolic blood pressure 70 mm[Hg] Dr. Rocio Bartlett MD Work Phone: [facility] 09-28-2024 09:20-0400 Heart rate 105 /min Dr. Rocio Bartlett MD Work Phone: [facility] 09-28-2024 09:20-0400 Inhaled oxygen flow rate 2 L/min Dr. Rocio Bartlett MD Work Phone: [facility] 09-28-2024 09:20-0400 Respiratory rate 18 /min Dr. Rocio Bartlett MD Work Phone: [facility] 09-28-2024 09:20-0400 Systolic blood pressure 136 mm[Hg] Dr. Rocio Bartlett MD Work Phone: [facility] 09-21-2024 09:17-0400 Body mass index (BMI) [Ratio] 43.3 kg/m2 Dr. Rocio Bartlett MD Work Phone: [facility] 09-21-2024 09:17-0400 Body temperature 97.4 [degF] Dr. Rocio Bartlett MD Work Phone: [facility] 09-21-2024 09:17-0400 Diastolic blood pressure 75 mm[Hg] Dr. Rocio Bartlett MD Work Phone: [facility] 09-21-2024 09:17-0400 Heart rate 105 /min Dr. Rocio Bartlett MD Work Phone: [facility] 09-21-2024 09:17-0400 Respiratory rate 18 /min Dr. Rocio Bartlett MD Work Phone: [facility] 09-21-2024 09:17-0400 Systolic blood pressure 135 mm[Hg] Dr. Rocio Bartlett MD Work Phone: [facility] 09-14-2024 08:52-0400 Body mass index (BMI) [Ratio] 43.3 kg/m2 Dr. Rocio Bartlett MD Work Phone: [facility] 09-14-2024 08:52-0400 Body temperature 97.8 [degF] Dr. Rocio Bartlett MD Work Phone: [facility] 09-14-2024 08:52-0400 Diastolic blood pressure 73 mm[Hg] Dr. Rocio Bartlett MD Work Phone: [facility] 09-14-2024 08:52-0400 Heart rate 103 /min Dr. Rocio Bartlett MD Work Phone: [facility] 09-14-2024 08:52-0400 Respiratory rate 18 /min Dr. Rocio Bartlett MD Work Phone: [facility] 09-14-2024 08:52-0400 Systolic blood pressure 146 mm[Hg] Dr. Rocio Bartlett MD Work Phone: [facility] 09-13-2024 00:26-0400 Body weight 141.[address] Rocio Bartlett MD Work Phone: [facility] 09-13-2024 00:26-0400 Inhaled oxygen flow rate 2 L/min Dr. Rocio Bartlett MD Work Phone: [facility] 09-13-2024 00:26-0400 SaO2% (BldA) [Mass fraction] 96 % Dr. Rocio Bartlett MD Work Phone: [facility] 09-07-2024 09:44-0400 Body mass index (BMI) [Ratio] 43.3 kg/m2 Dr. Rocio Bartlett MD Work Phone: [facility] 09-07-2024 09:44-0400 Body temperature 97 [degF] Dr. Rocio Bartlett MD Work Phone: [facility] 09-07-2024 09:44-0400 Diastolic blood pressure 73 mm[Hg] Dr. Rocio Bartlett MD Work Phone: [facility] 09-07-2024 09:44-0400 Heart rate 108 /min Dr. Rocio Bartlett MD Work Phone: [facility] 09-07-2024 09:44-0400 Respiratory rate 16 /min Dr. Rocio Bartlett MD Work Phone: [facility] 09-07-2024 09:44-0400 Systolic blood pressure 141 mm[Hg] Dr. Rocio Bartlett MD Work Phone: [facility] 08-31-2024 09:21-0400 Inhaled oxygen flow rate 2 L/min Dr. Rocio Bartlett MD Work Phone: [facility] 08-17-2024 09:15-0400 Body height 180.[address] Rocio Bartlett MD Work Phone: [facility] 08-17-2024 09:15-0400 Body weight 141.[address] Rocio Bartlett MD Work Phone: [facility] 08-17-2024 09:15-0400 SaO2% (BldA) [Mass fraction] 96 % Dr. Rocio Bartlett MD Work Phone: [facility] 07-18-2024 09:23-0500 Diastolic blood pressure 75 mm[Hg] Dr. Rocio Bartlett MD Work Phone: [facility] 07-18-2024 09:23-0500 Heart rate 95 /min Dr. Rocio Bartlett MD Work Phone: [facility] 07-18-2024 09:23-0500 Inhaled oxygen flow rate 3 L/min Dr. Rocio Bartlett MD Work Phone: [facility] 07-18-2024 09:23-0500 Respiratory rate 20 /min Dr. Rocio Bartlett MD Work Phone: [facility] 07-18-2024 09:23-0500 SaO2% (BldA) [Mass fraction] 95 % Dr. Rocio Bartlett MD Work Phone: [facility] 07-18-2024 09:23-0500 Systolic blood pressure 116 mm[Hg] Dr. Rocio Bartlett MD Work Phone: [facility] 06-12-2024 15:46-0500 Diastolic blood pressure 98 mm[Hg] Dr. Rocio Bartlett MD Work Phone: [facility] 06-12-2024 15:46-0500 Heart rate 105 /min Dr. Rocio Bartlett MD Work Phone: [facility] 06-12-2024 15:46-0500 Systolic blood pressure 149 mm[Hg] Dr. Rocio Bartlett MD Work Phone: [facility] 06-12-2024 13:42-0500 Inhaled oxygen flow rate 2 L/min Dr. Rocio Bartlett MD Work Phone: [facility] 06-12-2024 13:42-0500 Respiratory rate 16 /min Dr. Rocio Bartlett MD Work Phone: [facility] 06-12-2024 13:42-0500 SaO2% (BldA) [Mass fraction] 95 % Dr. Rocio Bartlett MD Work Phone: [facility] 06-05-2024 15:00-0500 Body temperature 96.6 [degF] Dr. Rocio Bartlett MD Work Phone: [facility] 06-05-2024 13:16-0500 Body mass index (BMI) [Ratio] 46.6 kg/m2 Dr. Rocio Bartlett MD Work Phone: [facility] 06-05-2024 13:16-0500 Body weight 135.[address] Rocio Bartlett MD Work Phone: [facility] 02-29-2024 10:46-0400 Body mass index (BMI) [Ratio] 45.89 kg/m2 Lenard Ling MD Work Phone: [facility] 02-29-2024 10:46-0400 Body weight 132.9 kg Lenard Ling MD Work Phone: [facility] 11-04-2023 15:28-0400 Body temperature 97.59 [degF] Helen Kuzmin DO Work Phone: [facility] 11-04-2023 15:28-0400 Diastolic blood pressure 69 mm[Hg] Helen Kuzmin DO Work Phone: [facility] 11-04-2023 15:28-0400 Heart rate 96 /min Helen Kuzmin DO Work Phone: [facility] 11-04-2023 15:28-0400 Respiratory rate 18 /min Helen Kuzmin DO Work Phone: [facility] 11-04-2023 15:28-0400 SaO2% (BldA) [Mass fraction] 95 % Helen Kuzmin DO Work Phone: [facility] 11-04-2023 15:28-0400 Systolic blood pressure 130 mm[Hg] Helen Kuzmin DO Work Phone: [facility] 11-04-2023 02:12-0400 Body mass index (BMI) [Ratio] 49.03 kg/m2 Helen Kuzmin DO Work Phone: [facility] 11-04-2023 02:12-0400 Body weight 142 kg Helen Kuzmin DO Work Phone: [facility] 10-28-2023 13:47-0400 Body height 170.2 cm Helen Kuzmin DO Work Phone: [facility] 10-07-2023 08:48-0400 Body height 170.2 cm Willem Glaser MD Work Phone: [facility] 10-07-2023 08:48-0400 Body mass index (BMI) [Ratio] 45.42 kg/m2 Willem Glaser MD Work Phone: [facility] 10-07-2023 08:48-0400 Body weight 131.54 kg Willem Glaser MD Work Phone: [facility] 09-13-2023 15:29-0400 Body temperature 98.2 [degF] Dr. Peter Thayer Work Phone: [facility] 09-13-2023 15:29-0400 Diastolic blood pressure 69 mm[Hg] Dr. Peter Thayer Work Phone: [facility] 09-13-2023 15:29-0400 Heart rate 103 /min Dr. Peter Thayer Work Phone: [facility] 09-13-2023 15:29-0400 Respiratory rate 18 /min Dr. Peter Thayer Work Phone: [facility] 09-13-2023 15:29-0400 SaO2% (BldA) [Mass fraction] 93 % Dr. Peter Thayer Work Phone: [facility] 09-13-2023 15:29-0400 Systolic blood pressure 124 mm[Hg] Dr. Peter Thayer Work Phone: [facility] 09-13-2023 07:42-0400 Inhaled oxygen flow rate 2 L/min Dr. Peter Thayer Work Phone: [facility] 09-13-2023 05:13-0400 Body mass index (BMI) [Ratio] 47.8 kg/m2 Dr. Peter Thayer Work Phone: [facility] 09-13-2023 05:13-0400 Body weight 138.[address] Peter Thayer Work Phone: [facility] 09-12-2023 12:51-0400 Body height [address] Peter Thayer Work Phone: [facility] 08-31-2023 18:52-0400 Body temperature 98.1 [degF] [facility] 08-31-2023 18:52-0400 Diastolic blood pressure 58 mm[Hg] [facility] 08-31-2023 18:52-0400 Heart rate 129 /min [facility] 08-31-2023 18:52-0400 Inhaled oxygen flow rate 2 L/min [facility] 08-31-2023 18:52-0400 Respiratory rate 18 /min [facility] 08-31-2023 18:52-0400 SaO2% (BldA) [Mass fraction] 95 % [facility] 08-31-2023 18:52-0400 Systolic blood pressure 117 mm[Hg] [facility] 08-31-2023 08:58-0400 Body height 182.88 cm [facility] 08-31-2023 08:58-0400 Body mass index (BMI) [Ratio] 39.9 kg/m2 [facility] 08-31-2023 08:58-0400 Body weight 133.35 kg [facility] 07-30-2023 14:00-0400 Body temperature 100.9 [degF] [facility] 07-30-2023 14:00-0400 Diastolic blood pressure 49 mm[Hg] [facility] 07-30-2023 14:00-0400 Heart rate 120 /min [facility] 07-30-2023 14:00-0400 Respiratory rate 20 /min [facility] 07-30-2023 14:00-0400 SaO2% (BldA) [Mass fraction] 92 % [facility] 07-30-2023 14:00-0400 Systolic blood pressure 99 mm[Hg] [facility] 07-29-2023 19:08-0400 Body mass index (BMI) [Ratio] 39.4 kg/m2 [facility] 07-29-2023 19:08-0400 Body weight 131.99 kg [facility] 07-29-2023 17:26-0400 Body height 182.88 cm [facility] 02-06-2023 02:10-0400 Body temperature 99.1 [degF] Dr. Peter Thayer Work Phone: [facility] 02-06-2023 02:10-0400 Diastolic blood pressure 69 mm[Hg] Dr. Peter Thayer Work Phone: [facility] 02-06-2023 02:10-0400 Heart rate 102 /min Dr. Peter Thayer Work Phone: [facility] 02-06-2023 02:10-0400 Respiratory rate 20 /min Dr. Peter Thayer Work Phone: [facility] 02-06-2023 02:10-0400 SaO2% (BldA) [Mass fraction] 92 % Dr. Peter Thayer Work Phone: [facility] 02-06-2023 02:10-0400 Systolic blood pressure 144 mm[Hg] Dr. Peter Thayer Work Phone: [facility] 02-05-2023 11:21-0400 Body height 182.[address] Peter Thayer Work Phone: [facility] 02-05-2023 11:21-0400 Body weight 146.[address] Peter Thayer Work Phone: [facility] 02-05-2023 10:16-0400 Inhaled oxygen flow rate 2 L/min Dr. Peter Thayer Work Phone: [facility] 02-05-2023 04:20-0400 Body mass index (BMI) [Ratio] 43.8 kg/m2 Dr. Peter Thayer Work Phone: [facility] 11-27-2022 07:53-0400 SaO2% (BldA) [Mass fraction] 97 % VANESSA MATIAS [facility] Comment on above: Order Comment: Specimen Type: ARTERIAL B LOOD SPECIMENOrdering Facility: [facility] Address: [address] [place], [place] [id number] Performed By: #### A LLBG ####[facility] LABORATORYCLIA [id number] [place] [address] [place] 11-17-2022 14:21-0400 Body temperature 99.2 [degF] Dr. Peter Thayer Work Phone: [facility] 11-17-2022 14:21-0400 Diastolic blood pressure 47 mm[Hg] Dr. Peter Thayer Work Phone: [facility] 11-17-2022 14:21-0400 Heart rate 91 /min Dr. Peter Thayer Work Phone: [facility] 11-17-2022 14:21-0400 Respiratory rate 20 /min Dr. Peter Thayer Work Phone: [facility] 11-17-2022 14:21-0400 SaO2% (BldA) [Mass fraction] 93 % Dr. Peter Thayer Work Phone: [facility] 11-17-2022 14:21-0400 Systolic blood pressure 143 mm[Hg] Dr. Peter Thayer Work Phone: [facility] 11-17-2022 13:00-0400 Inhaled oxygen flow rate 2 L/min Dr. Peter Thayer Work Phone: [facility] 11-17-2022 12:36-0400 Body height 170.[address] Peter Thayer Work Phone: [facility] 11-17-2022 12:36-0400 Body weight 166.[address] Peter Thayer Work Phone: [facility] 11-17-2022 07:40-0400 Inhaled oxygen concentration 35 % Dr. Peter Thayer Work Phone: [facility] 11-16-2022 04:23-0400 Body mass index (BMI) [Ratio] 57.4 kg/m2 Dr. Peter Thayer Work Phone: [facility] 11-15-2022 20:58-0400 Diastolic blood pressure 64 mm[Hg] [facility] 11-15-2022 20:58-0400 Inhaled oxygen flow rate 3 L/min [facility] 11-15-2022 20:58-0400 Respiratory rate 26 /min [facility] 11-15-2022 20:58-0400 SaO2% (BldA) [Mass fraction] 97 % [facility] 11-15-2022 20:58-0400 Systolic blood pressure 131 mm[Hg] [facility] 11-15-2022 20:01-0400 Body temperature 97.3 [degF] [facility] 11-15-2022 20:01-0400 Heart rate 84 /min [facility] 11-15-2022 17:57-0400 Body height 170.18 cm [facility] 11-15-2022 17:57-0400 Body mass index (BMI) [Ratio] 58.1 kg/m2 [facility] 11-15-2022 17:57-0400 Body weight 168.3 kg [facility] Encounters Encounter Date Encounter Type Care Provider Facility Start: 11-23-2024 ambulatory Mirthaamorfernanda Beane Facili ty:[facility] Start: 11-19-2024 ambulatory Effannyrobstownfernanda Beane OLS Fa cility:[facility] Start: 11-13-2024 ambulatory Effannyrobstownbe Vikase OLS Fa cility:[facility] Start: 11-12-2024 ambulatory Effannyongbe Olesmithe OLS Fa cility:[facility] Start: 11-09-2024 End: 11-12-[address] Rocio Bartlett MD [facility] Phone[facility] Start: 11-09-2024 End: 11-12-2024 Dr. Peter Thayer DO -[facility] Work Phone: Start: 11-07-2024 ambulatory Nay Beal OLS Fac ility:[facility] Start: 11-07-2024 Nay Beal JORDAN WORKER-C -[facility] Start: 11-05-2024 ambulatory Rocio Bartlett OLS Fa cility:[facility] Start: 11-05-2024 Rocio Bartlett MD -[facility] Start: 11-01-2024 Dr. Le Wiggins MD -[facility] Work Phone: Start: 11-01-2024 Dr. Tez Tuttle DO -[facility] Start: 10-31-2024 Dr. Le Wiggins MD -[facility] Work Phone: Start: 10-31-2024 Dr. Tez Tuttle DO -[facility] Start: 10-30-2024 Dr. Maurizio lovett DO -[facility] Work Phone: Start: 10-30-2024 Dr. Tez Tuttle DO -[facility] Start: 10-29-2024 End: 11-01-2024 Evaluation and management of inpatient Dr. Rocio Bartlett MD Work Phone: [facility] Work Phone: Start: 10-29-2024 ambulatory [facility] Start: 10-29-2024 End: 11-01-2024 Dr. Percy Price DO -[facility] Work Phone: Start: 10-26-2024 Dr. Peter Thayer [facility] Work Phone: Start: 10-22-2024 ambulatory Rocio Bartlett OLS Fa cility:[facility] Start: 10-22-2024 Rocio Bartlett MD [facility] Start: 10-19-2024 [facility] Work [facility]: Start: 10-16-2024 Dr. Palmira Johnson MD [facility] Work Phone: Start: 10-15-2024 Dr. Palmira Johnson MD [facility] Work Phone: Start: 10-14-2024 Dr. Palmira Johnson MD - [facility] Work Phone: Start: 10-13-2024 ambulatory Efewongbe Oleghe Facili ty:[facility] Start: 10-13-2024 Dr. Palmira Johnson MD [facility] Work Phone: Start: 10-12-2024 ambulatory Efewongbe Oleghe Facili ty:[facility] Start: 10-12-2024 End: 10-16-2024 Evaluation and management of inpatient Dr. Rocio Bartlett MD Work Phone: [facility] Work Phone: Start: 10-12-2024 End: 10-16-2024 [facility] Start: 10-09-2024 ambulatory Rocio HUTTON Fa cility:[facility] Start: 10-09-2024 [facility] Start: 10-03-2024 End: 10-03-[address] Rocio Bartlett MD Work Phone: [facility] Work Phone: Start: 10-03-2024 End: 10-03-2024 [facility] Start: 10-03-2024 End: 10-03-2024 ambulatory Rocio HUTTON Facility:[facility] Start: 10-01-2024 ambulatory Rocio HUTTON Fa cility:[facility] Start: 10-01-2024 [facility] Start: 09-28-2024 End: 10-13-[address] Rocio Bartlett MD Work Phone: [facility] Work Phone: Start: 09-28-2024 End: 10-13-2024 [facility]. [facility] Work Phone: Start: 09-24-2024 End: 09-24-[address] Rocio Bartlett MD Work Phone: [facility] Work Phone: Start: 09-24-2024 End: 09-24-2024 [facility] Start: 09-24-2024 End: 09-24-2024 ambulatory Rocio Bartlett Facility:[facility] Start: 09-[facility]2024 [facility] Start: 09-17-2024 End: 09-17-2024 [facility] Start: 09-17-2024 End: 09-17-2024 [facility] Start: 09-14-2024 [facility] Start: 09-12-2024 End: 09-12-2024 ambulatory Nay Beal JORDAN WORKER Facility[facility] Start: 09-12-2024 End: 09-12-2024 [facility] JORDAN [facility]ER- [facility] Work Phone: Start: 09-10-2024 End: 09-10-[address] Rocio Bartlett MD Work Phone: [facility] Work Phone: Start: 09-10-2024 End: 09-10-2024 [facility] Start: 09-10-2024 End: 09-10-2024 [facility] Start: 09-07-2024 End: 09-07-[address] Rocio Bartlett MD Work Phone: [facility] Work Phone: Start: 09-07-2024 End: 09-07-2024 [facility] Work Phone: Start: 09-07-2024 End: 09-12-2024 [facility] Start: 09-07-2024 End: 09-12-2024 Dr. Peter [facility]DW[facility] Work Phone: Start: 09-03-2024 End: 09-03-[address] Rocio Bartlett MD Work Phone: [facility] Work Phone: Start: 09-03-2024 End: 09-03-2024 [facility] Start: 09-03-2024 End: 09-03-2024 ambulatory Efewongbe Oleghe Facility:[facility] Start: 08-27-2024 End: 08-27-[address] Rocio Bartlett MD Work Phone: [facility] Work Phone: Start: 08-27-2024 End: 08-27-2024 Rocio Bartlett MD [facility] Start: 08-27-2024 End: 08-27-2024 ambulatory Efewongbe Oleghe Facility:[facility] Start: 08-23-2024 End: 08-23-2024 ambulatory Rea TEMPLE Facility:[facility] Start: 08-23-2024 End: 08-23-2024 Rea TEMPLE [facility] Work Phone: Start: 08-20-2024 End: 08-20-2024 Rocio Bartlett MD [facility] Start: 08-20-2024 End: 08-20-2024 ambulatory Efewongbe Oleghe Facility:[facility] Start: 08-13-2024 End: 08-13-2024 ambulatory Efewongbe Oleghe Facility:[facility] Start: 08-13-2024 End: 08-13-2024 Nay Beal JORDAN WORKERArthurC -[facility] Work Phone: Start: 08-13-2024 End: 08-13-2024 ambulatory Efewongbe Oleghe Facility:[facility] Start: 08-06-2024 End: 08-06-2024 Rocio Bartlett MD [facility] Start: 08-06-2024 End: 08-06-2024 ambulatory Efewongbe Oleghe Facility:[facility] Start: 07-30-2024 End: 07-30-2024 Rocio Bartlett MD [facility] Start: 07-30-2024 End: 07-30-2024 ambulatory Efewongbe Oleghe Facility:[facility] Start: 07-26-2024 End: 07-26-2024 [facility] Start: 07-26-2024 End: 07-26-2024 ambulatory Efewongbe Oleghe Facility:[facility] Start: 07-24-2024 End: 07-24-2024 ambulatory Efewongbe Oleghe Facility:[facility] Start: 07-24-2024 End: 07-24-2024 Dr. Rocio Bartlett MD -[facility] Work Phone: Start: 07-23-2024 End: 07-23-2024 ambulatory Efewongbe Oleghe Facility:[facility] Start: 07-23-2024 End: 07-23-2024 [facility] Work Phone: Start: 07-23-2024 End: 07-23-2024 ambulatory Efewongbe Oleghe Facility:[facility] Start: 07-18-2024 End: 07-18-2024 Dr. Lamonte Lopez MD -[facility] Work Phone: Start: 07-18-2024 End: 07-18-2024 ambulatory Efewongbe Oleghe Facility:[facility] Start: 07-16-2024 End: 07-16-2024 [facility] Start: 07-16-2024 End: 07-16-2024 ambulatory Efewongbe Oleghe Facility:[facility] Start: 07-12-2024 End: 07-12-2024 ambulatory Efewongbe Oleghe Facility:[facility] Start: 07-12-2024 End: 07-12-2024 [facility] Work [facility]: Start: 07-11-2024 End: 07-11-2024 [facility] Start: 07-10-2024 End: 07-11-2024 ambulatory Efewongbe Oleghe Facility:[facility] Start: 07-10-2024 End: 07-10-2024 [facility] Work [facility]: Start: 07-09-2024 End: 07-09-2024 ambulatory Efewongbe Oleghe Facility:[facility] Start: 07-09-2024 End: 07-09-20[address] [facility] Work Phone: Start: 07-09-2024 End: 07-09-2024 ambulatory Efewongbe Oleghe Facility:[facility] Start: 07-06-2024 End: 07-06-2024 ambulatory Efewongbe Oleghe Facility:[facility] Start: 07-06-2024 End: 07-06-2024 [facility] Work Phone: Start: 07-02-2024 ambulatory Efewongbe Oleghe Facili ty:[facility] Start: 07-02-2024 [facility] Start: 06-28-2024 End: 07-27-2024 Telephone encounter Lenard Ling MD Work Phone: [facility] Plastic Surgery - [facility] Start: 06-26-2024 End: 06-26-2024 ambulatory Efewongbe Oleghe Facility:[facility] Start: 06-26-2024 End: 06-26-2024 Nay RAMIREZ [facility] Work Phone: Start: 06-25-2024 ambulatory Efewongbe Oleghe Facili ty:[facility] Start: 06-25-2024 [facility] Start: 06-20-2024 ambulatory Bridger Friend Facility :[facility] Start: 06-19-2024 ambulatory Efewongbe Oleghe Facili ty:[facility] Start: 06-19-2024 [facility] Start: 06-18-2024 ambulatory Efewongbe Oleghe Facili ty:[facility] Start: 06-18-2024 [facility] Start: 06-15-2024 End: 06-15-2024 Telephone encounter Lenard Ling MD Work Phone: [facility] Plastic [facility] Comment on above: Appointment Request; Surgery Scheduling Start: 06-14-2024 End: 06-14-2024 Telephone encounter Lenard Ling MD Work Phone: [facility] Plastic Surgery - [facility] Start: 06-12-2024 ambulatory Effannyongbe Olesmithe Facili ty:[facility] Start: 06-12-2024 Dr. Michele Antoine MD -[facility] Start: 06-07-2024 End: 06-07-2024 ambulatory Efewongbe Vikase [facility] Start: 06-07-2024 End: 06-07-2024 Nay RAMIREZ -[facility] Work Phone: Start: 06-04-2024 End: 06-04-2024 Rocio Bartlett MD [facility] Start: 06-04-2024 End: 06-04-2024 ambulatory Effannyongbe Vikase Facility:[facility] Start: 05-30-2024 End: 05-30-2024 Admission to same day surgery center Lenard Ling MD Work Phone: [facility] Plastic [facility] Comment on above: Decubitus ulcer of s acral region, stage 3 (HCC) (Primary Dx) Start: 05-30-2024 End: 05-30-2024 Office outpatient visit 10 minutes Lenard Ling MD Work Phone: [facility] Plastic [facility] Comment on above: Decubitus ulcer of s acral region, stage 3 (HCC) (Primary Dx) Start: 05-30-2024 End: 05-30-2024 ambulatory Lenard Ling MD Work Phone: [facility] Plastic Surgery [facility] Start: 05-29-2024 End: 05-29-2024 ambulatory Efewongbe Vikase Facility:[facility] Start: 05-29-2024 End: 05-29-2024 Dr. Rocio Bartlett MD -[facility] Work Phone: Start: 05-28-2024 End: 05-28-2024 [facility] Start: 05-28-2024 End: 05-28-2024 ambulatory Mirthaongfernanda Beane Facility:[facility] Start: 05-21-2024 End: 05-21-2024 [facility] Start: 05-21-2024 End: 05-21-2024 ambulatory Effannyongfernanda Beane Facility:[facility] Start: 05-18-2024 ambulatory Effannyongfernanda Beane Facili ty:[facility] Start: 05-18-2024 Rocio Bartlett MD [facility] Start: 05-17-2024 End: 05-17-2024 Subsequent hospital visit by physician Lenard Ling MD Work Phone: [facility] MRI Comment on above: Arrived Start: 05-17-2024 End: 05-17-2024 [facility] Start: 05-14-2024 End: 05-14-2024 ambulatory Effannyongfernanda Beane Facility:[facility] Start: 05-11-2024 End: 05-11-2024 ambulatory [facility] Start: 05-07-2024 End: 05-07-2024 ambulatory Effnanyongfernanda Beane Facility:[facility] Start: 04-30-2024 End: 04-30-2024 [facility] Start: 04-24-2024 End: 04-24-2024 ambulatory Efewongbe Vikase Facility:[facility] Start: 04-23-2024 End: 04-23-2024 ambulatory Effannyongfernanda Beane OLS Facility:[facility] Start: 04-20-2024 End: 04-20-2024 Telephone encounter Lenard Ling MD Work Phone: [facility] Plastic Surgery - [facility] Comment on above: Orders (MRI order) Start: 04-19-2024 End: 04-19-2024 ambulatory [facility] Start: 04-16-2024 End: 04-16-2024 ambulatory Efewongbe Vikase Facility:[facility] Start: 04-16-2024 End: 04-16-2024 ambulatory Efewongbe Vikase OLS Facility:[facility] Start: 04-13-2024 End: 04-13-2024 ambulatory Effannyongbe Olesmithe Facility:[facility] Start: 04-11-2024 End: 04-11-2024 ambulatory [place]be Oles[place]he Facility:[facility] Start: 04-09-2024 End: 04-09-2024 ambulatory Efewongbe Olesmithe Facility:[facility] Start: 04-09-2024 End: 04-09-2024 ambulatory Efewongbe Vikase OLS Facility:[facility] Start: 04-06-2024 End: 04-06-2024 ambulatory [place]be Vikase Facility:[facility] Start: 04-04-2024 End: 04-04-2024 [facility] Start: 04-02-2024 End: 04-02-2024 ambulatory WILLEM GLASER Facility:[facility] Start: 04-02-2024 End: 04-02-2024 Office outpatient visit 15 minutes Willem Glaser MD Work Phone: Urology Comment on above: Suprapubic catheter (HCC) (Primary Dx); Paraplegia (HCC); Urinary retention; Wound of sacral region, sequela Start: 04-02-2024 End: 04-02-2024 ambulatory Rocio Beane OLS Facility:[facility] Start: 03-30-2024 End: 03-30-2024 Telephone encounter Lenard Ling MD Work Phone: [facility] Plastic Surgery - [facility] Start: 03-27-2024 End: 03-27-2024 ambulatory Effannyongbe Vikase Facility:[facility] Start: 03-26-2024 End: 03-26-2024 ambulatory Effannyongbe Vikase Facility:[facility] Start: 03-26-2024 End: 03-26-2024 ambulatory Efewongbe Vikase OLS Facility:[facility] Start: 03-21-2024 End: 03-22-2024 ambulatory Efewongbe Vikase OLS Facility:[facility] Start: 03-20-2024 End: 03-20-2024 ambulatory [place] [facility] Start: 03-19-2024 End: 03-19-2024 ambulatory Eff[place]fernanda Beane OLS Facility:[facility] Start: 03-14-2024 End: 03-15-2024 ambulatory [place] OLS Facility:[facility] Start: 03-13-2024 End: 03-13-2024 ambulatory [place]fernanda Beane OLS Facility:[facility] Start: 03-12-2024 End: 03-12-2024 [facility] Start: 03-09-2024 End: 03-09-2024 Telephone encounter Lenard Ling MD Work Phone: [facility] Comment on above: Other (MRI schedulin g) Start: 03-05-2024 ambulatory [place] OLS Fa cility:[facility] Start: 02-29-2024 End: 02-29-2024 [facility] Start: 02-29-2024 End: 02-29-2024 Office outpatient new 45 minutes Lenard Ling MD Work Phone: [facility] Comment on above: Sacral decubitus ulc er, stage IV (HCC) (Primary Dx) Start: 02-27-2024 End: 02-27-2024 ambulatory Rocio Beane OLS Facility:[facility] Start: 02-20-2024 End: 02-20-2024 ambulatory Nay Beal JORDAN WORKER Facility:[facility] Start: 02-17-2024 End: 02-17-2024 Telephone encounter Lenard Ling MD Work Phone: [facility] Plastic [facility] - [facility] Start: 02-16-2024 End: 02-16-2024 ambulatory Nay Beal JORDAN WORKER Facility:[facility] Start: 02-15-2024 End: 02-16-2024 ambulatory Efsylvie Beane OLS Facility:[facility] Start: 02-14-2024 End: 02-14-2024 ambulatory Nay Beal JORDAN WORKER Facility:[facility] Start: 02-13-2024 End: 02-14-2024 Telephone encounter Willem Glaser MD Work Phone: Urology Comment on above: Patient Update Start: 02-13-2024 ambulatory Efewongbe Oleghe OLS Fa cility:[facility] Start: 02-09-2024 End: 02-10-2024 ambulatory Efewongbe Olesmithe OLS Facility:[facility] Start: 02-08-2024 ambulatory Efewongbe Oleghe OLS Fa cility:[facility] Start: 02-07-2024 ambulatory Efewongbe Oleghe OLS Fa cility:[facility] Start: 02-06-2024 End: 02-06-2024 ambulatory PETER THAYER Facility:[facility] Start: 02-02-2024 End: 06-29-2024 Telephone encounter Tianna Lyle RN [facility] Radiology Comment on above: Appointment Start: 02-01-2024 End: 02-08-2024 Telephone encounter Ania Walton RN [facility] Radiology Comment on above: Radiology Pre Proced ure Instructions (Suprapubic catheter placement) Start: 01-30-2024 ambulatory Efewongbe Oleghe Facili ty:[facility] Start: 01-28-2024 End: 01-28-2024 [facility] Start: 01-26-2024 End: 01-26-2024 [facility] Start: 01-24-2024 End: 01-24-2024 ambulatory Efewongbe Vikase Facility:[facility] Start: 01-23-2024 ambulatory Efewongbe Oleghe Facili ty:[facility] Start: 01-09-2024 End: 01-09-2024 ambulatory [place] O[place]he Facility:[facility] Start: 01-05-2024 End: 04-13-2024 Telephone encounter Nai Heard [facility] Radiology Comment on above: Scheduling (SPT Resc hedule) Start: 01-05-2024 End: 01-05-2024 ambulatory MARIA C HERNANDEZ Facility:[facility] Start: 01-02-2024 End: 01-02-2024 ambulatory Efewongbe Olee Facility:[facility] Start: 12-29-2023 End: 12-29-2023 ambulatory [facility] Facility:[facility] Start: 12-28-2023 Telephone encounter Antonio Gabriel RN [facility] Radiology Start: 12-26-2023 End: 12-26-2023 [facility] Start: 12-19-2023 End: 12-19-2023 ambulatory [facility] Facility:[facility] Start: 12-12-2023 End: 12-12-2023 ambulatory [facility] Facility:[facility] Start: 12-12-2023 End: 12-12-2023 ambulatory [facility] Facility:[facility] Start: 12-08-2023 End: 12-08-2023 ambulatory [facility] Facility:[facility] Start: 12-05-2023 End: 12-05-2023 ambulatory [facility] Facility:[facility] Start: 12-01-2023 End: 12-01-2023 ambulatory PETER THAYER Facility:[facility] Start: 12-01-2023 End: 12-01-2023 Nursing evaluation of patient and report Nurse [facility] Work Phone: Urology Comment on above: Chronic indwelling F oley catheter (Primary Dx) Start: 11-30-2023 End: 03-15-2024 Telephone encounter Nai Heard [facility] Radiology Comment on above: Scheduling (SPT Plac ement) Start: 11-28-2023 Telephone encounter Willem jacobo MD Work Phone: [place] Provider Adult Start: 11-28-2023 End: 11-28-2023 ambulatory [facility] Facility:[facility] Start: 10-27-2023 End: 11-04-2023 Evaluation and management of inpatient Helen Aldridge DO Work Phone: [facility] PCU 5W Comment on above: Pneumonia, bacterial (Primary Dx); intermediate card tender (current) use of antibiotics; UTI due to extended-spectrum beta lactamase (ESBL) producing Escherichia coli; 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 Keely Thayer Work Phone: [facility] Work Phone: Start: 09-12-2023 Non-patient / Non-visit Dr. Keely Thayer Work Phone: [facility] Work Phone: Start: 09-11-2023 Non-patient / Non-visit Dr. Keely Thayer Work Phone: [facility] Work Phone: Start: 09-10-2023 Non-patient / Non-visit Dr. Keely Thayer Work Phone: [facility] Work Phone: Start: 09-09-2023 Non-patient / Non-visit Dr. Keely Thayer Work Phone: [facility] Work Phone: Start: 09-08-2023 Non-patient / Non-visit Dr. Keely Thayer Work Phone: [facility] Work Phone: Start: 09-07-2023 Non-patient / Non-visit Dr. Keely Thayer Work Phone: [facility] Work Phone: Start: 09-06-2023 Non-patient / Non-visit Dr. Keely Thayer Work Phone: [facility] Work Phone: Start: 09-05-2023 Non-patient / Non-visit Dr. Keely Thayer Work Phone: [facility] Work Phone: Start: 09-04-2023 Non-patient / Non-visit Dr. Keely Thayer Work Phone: [facility] Work Phone: Start: 09-03-2023 Non-patient / Non-visit Dr. Keely Thayer Work Phone: [facility] Work Phone: Start: 09-02-2023 Non-patient / Non-visit Dr. Keely Thayer Work Phone: [facility] Work Phone: Start: 09-01-2023 Non-patient / Non-visit Dr. Keely Thayer Work Phone: [facility] Work Phone: Start: 08-31-2023 End: 09-13-2023 Evaluation and management of inpatient [facility]-Progressive Care Unit Work Phone: Start: 08-30-2023 Registered Referred [facility] Start: 08-29-2023 Registered Referred [facility] Start: 08-22-2023 Registered Referred [facility] Start: 08-21-2023 Registered [facility] Start: 08-16-2023 End: 08-21-2023 ambulatory ROCIO BARTLETT MD Facility:B Start: 08-16-2023 End: 08-20-2023 Outreach Lab ROCIO BARTLETT MD [facility] Start: 08-16-2023 End: 08-16-[address] Peter Thayer Work Phone: [facility] Work Phone: Start: 08-16-2023 Registered Referred [facility] Start: 08-15-2023 End: 08-15-[address] Peter Thayer Work Phone: [facility] Work Phone: Start: 07-30-2023 End: 08-12-2023 Evaluation and management of inpatient MAXIMILIAN MARTINEZ Facility:[facility] Start: 07-29-2023 End: 07-30-2023 Emergency department patient visit [facility]-Emergency Department Work Phone: Start: 06-24-2023 End: 06-24-2023 ambulatory [facility] Work Phone: Start: 06-24-2023 End: 06-24-2023 Patient encounter procedure [facility]-Laboratory, Specimen Work Phone: Start: 05-26-2023 ambulatory [facility] Facility:[facility] Start: 04-13-2023 End: 04-13-2023 Postop follow up visit related to original px Nyasia Herrera MD Work Phone: Colorectal Surgery Comment on above: S/P colostomy (HCC) (Primary Dx); Pressure injury of sacral region, stage 4 (HCC); Morbid obesity (HCC); Paraplegia (HCC) Start: 03-29-2023 Telephone encounter Nyasia Herrera MD Work Phone: Colorectal Surgery Comment on above: Patient Update Start: 03-24-2023 ambulatory India Holly MD Work Phone: [facility] Comment on above: CoPat Start Start: 03-08-2023 End: 06-16-2023 Subsequent hospital visit by physician Saeid Palacios MD Work Phone: [facility] Start: 02-18-2023 ambulatory Lamonte anna MD Work Phone: [facility] Comment on above: CoPat Start Start: 02-05-2023 Non-patient / Non-visit Dr. Keely Thayer Work Phone: [facility] Work Phone: Start: 02-04-2023 Non-patient / Non-visit Dr. Keely Thayer Work Phone: [facility] Work Phone: Start: 02-03-2023 Non-patient / Non-visit Dr. Keely Thayer Work Phone: [facility] Work Phone: Start: 02-02-2023 Non-patient / Non-visit Dr. Keely Thayer Work Phone: [facility] Start: 02-02-2023 Non-patient / Non-visit Dr. Keely Thayer Work Phone: [facility] Start: 02-02-2023 Non-patient / Non-visit Dr. Keely Thayer Work Phone: [facility] Work Phone: Start: 02-01-2023 End: 02-06-2023 Evaluation and management of inpatient Dr. Peter Thayer Work Phone: [facility]-Progressive Care Unit Work Phone: Start: 01-03-2023 End: 01-03-2023 ambulatory Mark Mendoza MD Work Phone: [facility] Comment on above: Bacteremia due to En terococcus (Primary Dx) Start: 01-03-2023 End: 01-03-2023 Telemedicine consultation with patient Mark Mendoza MD Work Phone: [facility] Start: 12-31-2022 Telephone encounter Mark chinchilla MD Work Phone: [facility] Comment on above: CoPat Stop Start: 12-29-2022 Telephone encounter Mark chinchilla MD Work Phone: [facility] Comment on above: Results Start: 11-26-2022 ambulatory Mark Mendoza MD Work Phone: [place] [facility] ADULT Start: 11-17-2022 End: 12-14-2022 Evaluation and management of inpatient VANESSA MATIAS Facility:[facility] Start: 11-17-2022 ambulatory Peter BALBUENA RN.WATER [employer] PROGRAM MANAGER Work Phone: Critical Care Start: 11-17-2022 Non-patient / Non-visit Dr. Keely Thayer Work Phone: [facility] Work Phone: Start: 11-17-2022 Non-patient / Non-visit Dr. Keely Thayer Work Phone: [facility] Start: 11-16-2022 Non-patient / Non-visit Dr. Keely Thayer Work Phone: [facility] Start: 11-15-2022 End: 11-17-2022 Evaluation and management of inpatient [facility]-Intensive Care Unit Work Phone: Start: 03-09-2017 End: 03-13-2017 Evaluation and management of inpatient JOSÉ MIGUEL CALHOUN Facility:[facility] Start: 02-22-2017 Ambulatory [facility] Start: 02-18-2017 Ambulatory OMARI RABAGO Facility[facility] Start: 02-17-2017 End: 02-17-2017 Ambulatory [facility] Start: 02-07-2017 End: 02-08-[address] Facility[facility] Start: 02-04-2017 End: 02-05-2017 Ambulatory JOSÉ MIGUEL CALHOUN [facility] Start: 02-02-2017 End: 02-03-[address] Facility[facility] Start: 01-31-2017 End: 02-01-[address] Facility[facility] Start: 01-14-2017 End: 01-19-2017 Evaluation and management of inpatient REA LOWE Facility:[facility] Procedures Date Procedure Procedure Detail Performing Clinician Start: 11-07-2024 Gram stain microscopy D alberto Bartlett MD Work Phone: Start: 11-05-2024 Blood count smear mc rscp w/mnl difrntl wbc count Dr. Rocio Bartlett MD Work Phone: Start: 11-05-2024 Mean corpuscular hemoglobin concentration determination Dr. Rocio Bartlett MD Work Phone: Start: 11-05-2024 Nucleated red blood cell count procedure Dr. Rocio Bartlett MD Work Phone: Start: 11-05-2024 Platelet mean volume determination Dr. Rocio Bartlett MD Work Phone: Start: 11-01-2024 Bacterial nucleic ac id assay Dr. Rocio Bartlett MD Work Phone: Start: 11-01-2024 Blood count smear mc rscp w/mnl difrntl wbc count Dr. Rocio Bartlett MD Work Phone: Start: 11-01-[address] Rocio Bartlett MD Work Phone: Start: 11-01-2024 Mean corpuscular hemoglobin concentration determination Dr. Rocio Bartlett MD Work Phone: Start: 11-01-2024 Nucleated red blood cell count procedure Dr. Rocio Bartlett MD Work Phone: Start: 11-01-2024 Platelet mean volume determination Dr. Rocio Bartlett MD Work Phone: Start: 10-31-[address] Heber Bartlett MD Work Phone: Start: 10-29-[address] Coretta Bartlett MD Work Phone: Start: 10-29-2024 CT of chest without contrast Dr. Rocio Bartlett MD Work Phone: Start: 10-29-[address] Bay Bartlett MD Work Phone: Start: 10-29-2024 Gram stain microscopy D alberto Bartlett MD Work Phone: Start: 10-29-2024 Legionella pneumophi la antigen assay Dr. Rocio Bartlett MD Work Phone: Start: 10-29-[address] Rocio Bartlett MD Work Phone: Start: 10-29-2024 Respiratory microbia l culture Dr. Rocio Bartlett MD Work Phone: Start: 10-29-2024 End: 10-29-2024 Streptococcus pneumoniae antigen assay Dr. Rocio Bartlett MD Work Phone: Start: 10-29-[address] Bay Bartlett MD Work Phone: Start: 10-29-2024 Dr. Heber Bartlett MD Work Phone: Start: 10-29-2024 X-ray of chest, PA a nd lateral views Dr. Rcoio Bartlett MD Work Phone: Start: 10-29-2024 Urine microscopy: re d cells Dr. Rocio Bartlett MD Work Phone: Start: 10-29-2024 Urnls dip stick/tabl et reagent auto microscopy Dr. Rocio Bartlett MD Work Phone: Start: 10-29-2024 Carbon dioxide measurement, partial pressure Dr. Rocio Bartlett MD Work Phone: Start: 10-29-2024 Gases blood o2 satur ation only direct sarah Dr. Rocio Bartlett MD Work Phone: Start: 10-29-2024 Measurement of parti al pressure of oxygen in blood Dr. Rocio Bartlett MD Work Phone: Start: 10-29-[address] Rocio Bartlett MD Work Phone: Start: 10-29-2024 Blood count smear mc rscp w/mnl difrntl wbc count Dr. Rocio Bartlett MD Work Phone: Start: 10-29-2024 Calculation of international normalized ratio Dr. Rocio Bartlett MD Work Phone: Start: 10-29-[address] Rocio Bartlett MD Work Phone: Start: 10-29-2024 Mean corpuscular hemoglobin concentration determination Dr. Rocio Bartlett MD Work Phone: Start: 10-29-2024 Nucleated red blood cell count procedure Dr. Rocio Bartlett MD Work Phone: Start: 10-29-2024 Platelet mean volume determination Dr. Rocio Bartlett MD Work Phone: Start: 10-29-2024 Blood count smear mc rscp w/mnl difrntl wbc count Dr. Rocio Bartlett MD Work Phone: Start: 10-29-2024 Mean corpuscular hemoglobin concentration determination Dr. Rocio Bartlett MD Work Phone: Start: 10-29-2024 Nucleated red blood cell count procedure Dr. Rocio Bartlett MD Work Phone: Start: 10-29-2024 Platelet mean volume determination Dr. Rocio Bartlett MD Work Phone: Start: 10-29-2024 Total iron binding capacity measurement Dr. Rocio Bartlett MD Work Phone: Start: 10-22-2024 Blood count smear mc rscp w/mnl difrntl wbc count Dr. Rocio Bartlett MD Work Phone: Start: 10-22-2024 Mean corpuscular hemoglobin concentration determination Dr. Rocio Bartlett MD Work Phone: Start: 10-22-2024 Nucleated red blood cell count procedure Dr. Rocio Bartlett MD Work Phone: Start: 10-22-2024 Platelet mean volume determination Dr. Rocio Bartlett MD Work Phone: Start: 10-16-2024 Blood count smear mc rscp w/mnl difrntl wbc count Dr. Rocio Bartlett MD Work Phone: Start: 10-16-[address] Rocio Bartlett MD Work Phone: Start: 10-16-2024 Mean corpuscular hemoglobin concentration determination Dr. Rocio Bartlett MD Work Phone: Start: 10-16-2024 Nucleated red blood cell count procedure Dr. Rocio Bartlett MD Work Phone: Start: 10-16-2024 Platelet mean volume determination Dr. Rocio Bartlett MD Work Phone: Start: 10-13-2024 Blood count smear mc rscp w/mnl difrntl wbc count Dr. Rocio Bartlett MD Work Phone: Start: 10-13-[address] Rocio Bartlett MD Work Phone: Start: 10-13-2024 Mean corpuscular hemoglobin concentration determination Dr. Rocio Bartlett MD Work Phone: Start: 10-13-2024 Nucleated red blood cell count procedure Dr. Rocio Bartlett MD Work Phone: Start: 10-13-2024 Platelet mean volume determination Dr. Rocio Bartlett MD Work Phone: Start: 10-13-2024 Serum inorganic phos phate measurement Dr. Rocio Bartlett MD Work Phone: Start: 10-12-[address] Bay Bartlett MD Work Phone: Start: 10-12-2024 Gram stain microscopy D alberto Bartlett MD Work Phone: Start: 10-12-2024 Legionella pneumophi la antigen assay Dr. Rocio Bartlett MD Work Phone: Start: 10-12-[address] Rocio Bartlett MD Work Phone: Start: 10-12-2024 Respiratory microbia l culture Dr. Rocio Bartlett MD Work Phone: Start: 10-12-2024 Sars-cov-2 Dr. Heber Bartlett MD Work Phone: Start: 10-12-2024 End: 10-12-2024 Streptococcus pneumoniae antigen assay Dr. Rocio Bartlett MD Work Phone: Start: 10-12-[address] Rocio Bartlett MD Work Phone: Start: 10-12-2024 CT angiography of ch est with contrast Dr. Rocio Bartlett MD Work Phone: Start: 10-12-2024 Plain chest X-ray Dr. Myranda Bartlett MD Work Phone: Start: 10-12-2024 Blood count smear mc rscp w/mnl difrntl wbc count Dr. Rocio Bartlett MD Work Phone: Start: 10-12-2024 D-dimer assay, quantitative Dr. Rocio Bartlett MD Work Phone: Start: 10-12-[address] Rocio Bartlett MD Work Phone: Start: 10-12-2024 Mean corpuscular hemoglobin concentration determination Dr. Rocio Bartlett MD Work Phone: Start: 10-12-2024 Nucleated red blood cell count procedure Dr. Rocio Bartlett MD Work Phone: Start: 10-12-2024 Platelet mean volume determination Dr. Rocio Bartlett MD Work Phone: Start: 10-09-2024 Blood count smear mc rscp w/mnl difrntl wbc count Dr. Rocio Bartlett MD Work Phone: Start: 10-09-2024 Mean corpuscular hemoglobin concentration determination Dr. Rocio Bartlett MD Work Phone: Start: 10-09-2024 Nucleated red blood cell count procedure Dr. Rocio Bartlett MD Work Phone: Start: 10-09-2024 Platelet mean volume determination Dr. Rocio Bartlett MD Work Phone: Start: 10-03-2024 Legionella pneumophi la antigen assay Dr. Rocio Bartlett MD Work Phone: Start: 10-03-2024 Blood count smear mc rscp w/mnl difrntl wbc count Dr. Rocio Bartlett MD Work Phone: Start: 10-03-2024 Mean corpuscular hemoglobin concentration determination Dr. Rocio Bartlett MD Work Phone: Start: 10-03-2024 Nucleated red blood cell count procedure Dr. Rocio Bartlett MD Work Phone: Start: 10-03-2024 Platelet mean volume determination Dr. Rocio Bartlett MD Work Phone: Start: 10-01-2024 Blood count smear mc rscp w/mnl difrntl wbc count Dr. Rocio Bartlett MD Work Phone: Start: 10-01-2024 Mean corpuscular hemoglobin concentration determination Dr. Rocio Bartlett MD Work Phone: Start: 10-01-2024 Nucleated red blood cell count procedure Dr. Rocio Bartlett MD Work Phone: Start: 10-01-2024 Platelet mean volume determination Dr. Rocio Bartlett MD Work Phone: Start: 09-24-2024 Blood count smear mc rscp w/mnl difrntl wbc count Dr. Rocio Bartlett MD Work Phone: Start: 09-24-2024 Mean corpuscular hemoglobin concentration determination Dr. Rocio Bartlett MD Work Phone: Start: 09-24-2024 Nucleated red blood cell count procedure Dr. Rocio Bartlett MD Work Phone: Start: 09-24-2024 Platelet mean volume determination Dr. Rocio Bartlett MD Work Phone: Start: 09-17-2024 Blood count smear mc rscp w/mnl difrntl wbc count Dr. Rocio Bartlett MD Work Phone: Start: 09-17-2024 Mean corpuscular hemoglobin concentration determination Dr. Rocio Bartlett MD Work Phone: Start: 09-17-2024 Nucleated red blood cell count procedure Dr. Rocio Bartlett MD Work Phone: Start: 09-17-2024 Platelet mean volume determination Dr. Rocio Bartlett MD Work Phone: Start: 09-10-2024 Blood count smear mc rscp w/mnl difrntl wbc count Dr. Rocio Bartlett MD Work Phone: Start: 09-10-2024 Mean corpuscular hemoglobin concentration determination Dr. Rocio Bartlett MD Work Phone: Start: 09-10-2024 Nucleated red blood cell count procedure Dr. Rocio Bartlett MD Work Phone: Start: 09-10-2024 Platelet mean volume determination Dr. Rocio Bartlett MD Work Phone: Start: 09-03-2024 Blood count smear mc rscp w/mnl difrntl wbc count Dr. Rocio Bartlett MD Work Phone: Start: 09-03-2024 Mean corpuscular hemoglobin concentration determination Dr. Rocio Bartlett MD Work Phone: Start: 09-03-2024 Nucleated red blood cell count procedure Dr. Rocio Bartlett MD Work Phone: Start: 09-03-2024 Platelet mean volume determination Dr. Rocio Bartlett MD Work Phone: Start: 08-31-[address] Rocio Bartlett MD Work Phone: Start: 08-31-2024 Gram stain microscopy D alberto Bartlett MD Work Phone: Start: 08-31-2024 End: 08-31-2024 Microbial culture, routine Dr. Rocio Bartlett MD Work Phone: Start: 08-27-2024 Blood count smear mc rscp w/mnl difrntl wbc count Dr. Rocio Bartlett MD Work Phone: Start: 08-27-2024 Mean corpuscular hemoglobin concentration determination Dr. Rocio Bartlett MD Work Phone: Start: 08-27-2024 Nucleated red blood cell count procedure Dr. Rocio Bartlett MD Work Phone: Start: 08-27-2024 Platelet mean volume determination Dr. Rocio Bartlett MD Work Phone: Start: 08-20-2024 Blood count smear mc rscp w/mnl difrntl wbc count Dr. Rocio Bartlett MD Work Phone: Start: 08-20-2024 Mean corpuscular hemoglobin concentration determination Dr. Rocio Bartltet MD Work Phone: Start: 08-20-2024 Nucleated red blood cell count procedure Dr. Rocio Bartlett MD Work Phone: Start: 08-20-2024 Platelet mean volume determination Dr. Rocio Bartlett MD Work Phone: Start: 08-13-2024 Blood count smear mc rscp w/mnl difrntl wbc count Dr. Rocio Bartlett MD Work Phone: Start: 08-13-2024 Mean corpuscular hemoglobin concentration determination Dr. Rocio Barltett MD Work Phone: Start: 08-13-2024 Nucleated red blood cell count procedure Dr. Rocio Bartlett MD Work Phone: Start: 08-13-2024 Platelet mean volume determination Dr. Rocio Bartlett MD Work Phone: Start: 08-06-2024 Blood count smear mc rscp w/mnl difrntl wbc count Dr. Rocio Bartlett MD Work Phone: Start: 08-06-2024 Mean corpuscular hemoglobin concentration determination Dr. Rocio Bartlett MD Work Phone: Start: 08-06-2024 Nucleated red blood cell count procedure Dr. Rocio Bartlett MD Work Phone: Start: 08-06-2024 Platelet mean volume determination Dr. Rocio Bartlett MD Work Phone: Start: 07-30-2024 Blood count smear mc rscp w/mnl difrntl wbc count Dr. Rocio Bartlett MD Work Phone: Start: 07-30-2024 Mean corpuscular hemoglobin concentration determination Dr. Rocio Bartlett MD Work Phone: Start: 07-30-2024 Nucleated red blood cell count procedure Dr. Rocio Bartlett MD Work Phone: Start: 07-30-2024 Platelet mean volume determination Dr. Rocio Bartlett MD Work Phone: Start: 07-26-2024 Blood count smear mc rscp w/mnl difrntl wbc count Dr. Rocio Bartlett MD Work Phone: Start: 07-26-2024 Mean corpuscular hemoglobin concentration determination Dr. Rocio Bartlett MD Work Phone: Start: 07-26-2024 Nucleated red blood cell count procedure Dr. Rocio Bartlett MD Work Phone: Start: 07-26-2024 Platelet mean volume determination Dr. Rocio Bartlett MD Work Phone: Start: 07-23-2024 Blood count smear mc rscp w/mnl difrntl wbc count Dr. Rocio Bartlett MD Work Phone: Start: 07-23-2024 Mean corpuscular hemoglobin concentration determination Dr. Rocio Bartlett MD Work Phone: Start: 07-23-2024 Nucleated red blood cell count procedure Dr. Rocio Bartlett MD Work Phone: Start: 07-23-2024 Platelet mean volume determination Dr. Rocio Bartlett MD Work Phone: Start: 07-16-2024 Blood count smear mc rscp w/mnl difrntl wbc count Dr. Rocio Bartlett MD Work Phone: Start: 07-16-2024 Mean corpuscular hemoglobin concentration determination Dr. Rocio Bartlett MD Work Phone: Start: 07-16-2024 Nucleated red blood cell count procedure Dr. Rocio Bartlett MD Work Phone: Start: 07-16-2024 Platelet mean volume determination Dr. Rocio Bartlett MD Work Phone: Start: 07-11-2024 Legionella pneumophi la antigen assay Dr. Rocio Bartlett MD Work Phone: Start: 07-09-2024 Anion gap measurement D alberto Bartlett MD Work Phone: Start: 07-09-2024 Blood count smear mc rscp w/mnl difrntl wbc count Dr. Rocio Bartlett MD Work Phone: Start: 07-09-2024 BUN/Creatinine ratio Dr Samantha Bartlett MD Work Phone: Start: 07-09-2024 Mean corpuscular hemoglobin concentration determination Dr. Rocio Bartlett MD Work Phone: Start: 07-09-2024 Measurement of renal function Dr. Rocio Bartlett MD Work Phone: Start: 07-09-2024 Nucleated red blood cell count procedure Dr. Rocio Bartlett MD Work Phone: Start: 07-09-2024 Platelet mean volume determination Dr. Rocio Bartlett MD Work Phone: Start: 07-02-2024 Anion gap measurement D alberto Bartlett MD Work Phone: Start: 07-02-2024 Blood count smear mc rscp w/mnl difrntl wbc count Dr. Rocio Bartlett MD Work Phone: Start: 07-02-2024 BUN/Creatinine ratio Dr Samantha Bartlett MD Work Phone: Start: 07-02-2024 Mean corpuscular hemoglobin concentration determination Dr. Rocio Bartlett MD Work Phone: Start: 07-02-2024 Measurement of renal function Dr. Rocio Bartlett MD Work Phone: Start: 07-02-2024 Nucleated red blood cell count procedure Dr. Rocio Bartlett MD Work Phone: Start: 07-02-2024 Platelet mean volume determination Dr. Rocio Bartlett MD Work Phone: Start: 06-25-2024 Anion gap measurement D alberto Bartlett MD Work Phone: Start: 06-25-2024 Blood count smear mc rscp w/mnl difrntl wbc count Dr. Rocio Bartlett MD Work Phone: Start: 06-25-2024 BUN/Creatinine ratio Dr Samantha Bartlett MD Work Phone: Start: 06-25-2024 Mean corpuscular hemoglobin concentration determination Dr. Rocio Bartlett MD Work Phone: Start: 06-25-2024 Measurement of renal function Dr. Rocio Bartlett MD Work Phone: Start: 06-25-2024 Nucleated red blood cell count procedure Dr. Rocio Bartlett MD Work Phone: Start: 06-25-2024 Platelet mean volume determination Dr. Rocio Bartlett MD Work Phone: Start: 06-19-2024 Blood count smear mc rscp w/mnl difrntl wbc count Dr. Rocio Bartlett MD Work Phone: Start: 06-19-2024 Mean corpuscular hemoglobin concentration determination Dr. Rocio Bartlett MD Work Phone: Start: 06-19-2024 Nucleated red blood cell count procedure Dr. Rocio Bartlett MD Work Phone: Start: 06-19-2024 Platelet mean volume determination Dr. Rocio Bartlett MD Work Phone: Start: 06-18-2024 Anion gap measurement Cruz Bartlett MD Work Phone: Start: 06-18-2024 BUN/Creatinine ratio Dr Samantha Bartlett MD Work Phone: Start: 06-18-2024 Measurement of renal function Dr. Rocio Bartlett MD Work Phone: Start: 06-04-2024 Anion gap measurement Cruz Bartlett MD Work Phone: Start: 06-04-2024 Blood count smear mc rscp w/mnl difrntl wbc count Dr. Rocio Bartlett MD Work Phone: Start: 06-04-2024 BUN/Creatinine ratio Dr Samantha Bartlett MD Work Phone: Start: 06-04-2024 Mean corpuscular hemoglobin concentration determination Dr. Rocio Bartlett MD Work Phone: Start: 06-04-2024 Measurement of renal function Dr. Rocio Bartlett MD Work Phone: Start: 06-04-2024 Nucleated red blood cell count procedure Dr. Rocio Bartlett MD Work Phone: Start: 06-04-2024 Platelet mean volume determination Dr. Rocio Bartlett MD Work Phone: Start: 05-28-2024 Anion gap measurement Cruz Bartlett MD Work Phone: Start: 05-28-2024 Blood count smear mc rscp w/mnl difrntl wbc count Dr. Rocio Bartlett MD Work Phone: Start: 05-28-2024 BUN/Creatinine ratio Dr Samantha Bartlett MD Work Phone: Start: 05-28-2024 Mean corpuscular hemoglobin concentration determination Dr. Rocio Bartlett MD Work Phone: Start: 05-28-2024 Measurement of renal function Dr. Rocio Bartlett MD Work Phone: Start: 05-28-2024 Nucleated red blood cell count procedure Dr. Rocio Bartlett MD Work Phone: Start: 05-28-2024 Platelet mean volume determination Dr. Rocio Bartlett MD Work Phone: Start: 02-08-2024 Antibody screen Jacqueline Bartlett Comment on above: Order Comment: [id number] [id number] Performed By: #### B , [id number], BR, [id number] ####[facility] [id number] [facility] HospitalmyrandaGrand [place], [place], [id number] Start: 11-04-2023 Glucose quantitative blood xcpt reagent strip Prince Bear MD Work Phone: Start: 11-04-2023 Glucose quantitative blood xcpt reagent strip Prince Bear MD Work Phone: Start: 11-04-2023 Glucose quantitative blood xcpt reagent strip Prince Bear MD Work Phone: Start: 11-04-2023 Radiologic exam ches t single view Parker Rockwell MD Work Phone: Start: 11-04-2023 Comprehensive metabo lic panel Prince Bear MD Work Phone: Start: 11-03-2023 Glucose quantitative blood xcpt reagent strip Prince Bear MD Work Phone: Start: 11-03-2023 Glucose quantitative blood xcpt reagent strip Prince Bear MD Work Phone: Start: 11-03-2023 Glucose quantitative blood xcpt reagent strip Prince Bear MD Work Phone: Start: 11-03-2023 Radiologic exam ches t single view Parker Rockwell MD Work Phone: Start: 11-03-2023 End: 11-03-2023 Comprehensive metabolic panel Parker Rockwell MD Work Phone: Start: 11-02-2023 Glucose quantitative blood xcpt reagent strip Pedro Velasquez MD Work Phone: Start: 11-02-2023 Glucose quantitative blood xcpt reagent strip Pedro Velasquez MD Work Phone: Start: 11-02-2023 Glucose quantitative blood xcpt reagent strip Pedro Velasquez MD Work Phone: Start: 11-02-2023 Glucose quantitative blood xcpt reagent strip Pedro Velasquez MD Work Phone: Start: 11-02-2023 Radiologic exam ches t single view Parker Rockwell MD Work Phone: Start: 11-02-2023 Comprehensive metabo lic panel Parker Rockwell MD Work Phone: Start: 11-01-2023 Glucose quantitative blood xcpt reagent strip Pedro Velasquez MD Work Phone: Start: 11-01-2023 Glucose quantitative blood xcpt reagent strip Pedro Velasquez MD Work Phone: Start: 11-01-2023 Glucose quantitative blood xcpt reagent strip Pedro Velasquez MD Work Phone: Start: 11-01-2023 Glucose quantitative blood xcpt reagent strip Pedro Velasquez MD Work Phone: Start: 11-01-2023 Radiologic exam ches t single view Parker Rockwell MD Work Phone: Start: 11-01-2023 Comprehensive metabo lic panel Parker Rockwell MD Work Phone: Start: 10-31-2023 End: 10-31-2023 Glucose quantitative blood xcpt reagent strip Pedro Velasquez MD Work Phone: Start: 10-31-2023 Radiologic exam ches t single view Deborah Alcantara MD Work Phone: Start: 10-31-2023 Insertion picc w/rs& i 5 yr/> Letha Oleary [employer] Work Phone: Start: 10-31-2023 Glucose quantitative blood xcpt reagent strip Pedro Velasquez MD Work Phone: Start: 10-31-2023 Glucose quantitative blood xcpt reagent strip Pedro Velasquez MD Work Phone: Start: 10-31-2023 Radiologic exam ches t single view Parker Rockwell MD Work Phone: Start: 10-31-2023 Comprehensive metabo lic panel Parker Rockwell MD Work Phone: Start: 10-30-2023 Glucose quantitative blood xcpt reagent strip Pedro Velasquez MD Work Phone: Start: 10-30-2023 Glucose quantitative blood xcpt reagent strip Pedro Velasquez MD Work Phone: Start: 10-30-2023 Glucose quantitative blood xcpt reagent strip Pedro Velasquez MD Work Phone: Start: 10-30-2023 Glucose quantitative blood xcpt reagent strip Pedro Velasquez MD Work Phone: Start: 10-30-2023 Radiologic exam ches t single view Parker Rockwell MD Work Phone: Start: 10-30-2023 Comprehensive metabo lic panel Parker Rockwell MD Work Phone: Start: 10-29-2023 Glucose quantitative blood xcpt reagent strip Pedro Velasquez MD Work Phone: Start: 10-29-2023 Glucose quantitative blood xcpt reagent strip Pedro Velasquez MD Work Phone: Start: 10-29-2023 Glucose quantitative blood xcpt reagent strip Pedro Velasquez MD Work Phone: Start: 10-29-2023 Glucose quantitative blood xcpt reagent strip Pedro Velasquez MD Work Phone: Start: 10-29-2023 Radiologic exam ches t single view Parker Rockwell MD Work Phone: Start: 10-29-2023 Comprehensive metabo lic panel Parker Rockwell MD Work Phone: Start: 10-28-2023 Iadna s aureus methi cillin resist amp probe tq Wolf Esquivel MD Work Phone: Start: 10-28-2023 Glucose quantitative blood xcpt reagent strip Pedro Velasquez MD Work Phone: Start: 10-28-2023 Glucose quantitative blood xcpt reagent strip Parker Rockwell MD Work Phone: Start: 10-28-2023 Glucose quantitative blood xcpt reagent strip Parker Rockwell MD Work Phone: Start: 10-28-2023 Radiologic exam ches t single view Wolf Esquivel MD Work Phone: Start: 10-28-2023 Comprehensive metabo lic panel Parker Rockwell MD Work Phone: Start: 10-27-2023 End: 10-27-2023 Comprehensive metabolic panel Ellyn De León MD Work Phone: Start: 09-13-[address] Peter Thayer Work Phone: Start: 09-10-2023 Measurement of occul t blood in stool specimen using immunoassay Dr. Peter Thayer Work Phone: Start: 09-09-[address] Peter Thayer Work Phone: Start: 09-04-2023 Transurethral fulgur ation of bladder Dr. Peter Thayer Work Phone: Start: 09-02-2023 Fluoroscopic guidance Cruz Thayer Work Phone: Start: 09-02-2023 Transurethral fulgur ation of bladder Dr. Peter Thayer Work Phone: Start: 08-31-2023 CT of abdomen and pe lvis without contrast Start: 08-21-2023 Urine culture Start: 08-04-2023 H/O: surgery s/p sacral wou nd debridment Willem Glaser MD Work Phone: Start: 08-02-2023 Antibody screen MAXIMILIAN LYLES Comment on above: Order Comment: Speci men Type: BLOOD SPECIMENOrdering Facility: [facility] Address: [address] [place] [address] Performed By: #### T SCR, [id number] ####[facility] [id number] [address] Start: 07-30-2023 Antibody screen MAXIMILIAN LYLES Comment on above: Order Comment: Speci men Type: BLOOD SPECIMENOrdering Facility: [facility] Address: [address] [place] [address] Performed By: #### T SCR, [id number], %ABBY ####[facility] [id number] [address] Start: 07-29-2023 CT of pelvis with contrast Start: 07-29-2023 Plain chest X-ray Start: 07-29-2023 Bacteria identified in Blood by Culture Start: 07-29-2023 Urine culture Start: 06-24-2023 Anaerobic microbial culture Start: 06-24-2023 Investigation of transfusion reaction Start: 06-24-2023 Microbial culture, routine Start: 05-29-2023 Blood count complete automated Manny Ibarra MD Work Phone: Start: 05-26-2023 Antibody screen WILLEM GLASER Comment on above: Order Comment: Speci men Type: BLOOD SPECIMEN Ordering Facility: [facility] Address: [address] [place] [address] Performed By: #### T SCR #### [facility] CLIA [id number] [address] [place] [address] [place] Start: 05-24-2023 Antibody screen WILLEM GLASER Comment on above: Order Comment: Speci men Type: BLOOD SPECIMENOrdering Facility: [facility] Address: [address] [place] [address] Performed By: #### T SCR ####[facility] [id number] [address] Start: 05-22-2023 Antibody screen WILLEM GLASER Comment on above: Order Comment: Speci men Type: BLOOD SPECIMENOrdering Facility: [facility] Address: [address] [place] [address] Performed By: #### T SCR ####[facility] [id number] [address] Start: 05-18-2023 Antibody screen WILLEM GLASER Comment on above: Order Comment: Speci men Type: BLOOD SPECIMENOrdering Facility: [facility] Address: [address] [place] [address] Performed By: #### T SCR ####[facility] [id number] [address] Start: 05-17-2023 Basic metabolic pane l calcium total Manny Ibarra MD Work Phone: Start: 05-05-2023 Basic metabolic pane l calcium total Saeid Palacios MD Work Phone: Start: 05-02-2023 Blood count complete auto&auto difrntl wbc Tomasz Blackwell MD Work Phone: Start: 05-02-2023 C-reactive protein Chaparro Blackwell MD Work Phone: Start: 04-26-2023 Assay of urea nitrog en quantitative Tomasz Blackwell MD Work Phone: Start: 04-26-2023 C-reactive protein Chaparro Blackwell MD Work Phone: Start: 04-23-2023 Basic metabolic pane l calcium total Nicole M Apte Work Phone: Start: 04-18-2023 Blood count complete auto&auto difrntl wbc Manny Ibarra MD Work Phone: Start: 04-18-2023 C-reactive protein Sach in Rishi BEVERLY Work Phone: Start: 04-13-2023 Basic metabolic pane l calcium total Saeid Palacios MD Work Phone: Start: 04-11-2023 Blood count complete auto&auto difrntl wbc Manny Ibarra MD Work Phone: Start: 04-11-2023 C-reactive protein Sacitalo in Rishi BEVERLY Work Phone: Start: 04-04-2023 Blood count complete auto&auto difrntl wbc Manny Ibarra MD Work Phone: Start: 04-04-2023 C-reactive protein Sacitalo in Rishi BEVERLY Work Phone: Start: 04-02-2023 Blood count complete auto&auto difrntl wbc Saeid Palacios MD Work Phone: Start: 03-29-2023 Creatine kinase total S adrian Blackwell MD Work Phone: Start: 03-28-2023 Blood count complete auto&auto difrntl wbc Manny Ibarra MD Work Phone: Start: 03-28-2023 C-reactive protein Sacitalo in Rishi BEVERLY Work Phone: Start: 03-25-2023 Basic metabolic pane l calcium total Saeid Palacios MD Work Phone: Start: 03-23-2023 Blood count complete auto&auto difrntl wbc Tomasz Blackwell MD Work Phone: Start: 03-21-2023 Bilirubin direct Tomasz Blackwell MD Work Phone: Start: 03-21-2023 C-reactive protein Chaparro in Rishi BEVERLY Work Phone: Start: 03-17-2023 Basic metabolic pane l calcium total Saeid Palacios MD Work Phone: Start: 03-14-2023 Basic metabolic pane l calcium total Toamsz Blackwell MD Work Phone: Start: 03-14-2023 C-reactive protein Chaparro Blackwell MD Work Phone: Start: 03-12-2023 Basic metabolic pane l calcium total Saeid Palacios MD Work Phone: Start: 03-11-2023 Blood count complete auto&auto difrntl wbc Tomasz Blackwell MD Work Phone: Start: 03-10-2023 Blood count complete auto&auto difrntl wbc Tomasz Blackwell MD Work Phone: Start: 03-09-2023 Blood count complete auto&auto difrntl wbc Saeid Palacios MD Work Phone: Start: 02-05-2023 Measurement of occul t blood in stool specimen using immunoassay Dr. Peter Thayer Work Phone: Start: 02-02-[address] Peter Thayer Work Phone: Start: 02-01-[address] Peter Thayer Work Phone: Start: 02-01-2023 Plain chest X-ray Dr. Damián Thayer Work Phone: Start: 02-01-2023 CT angiography of ch est with contrast Dr. Peter Thayer Work Phone: Start: 02-01-2023 CT of lumbar spine Dr. Peter Thayer Work Phone: Start: 12-27-2022 CBCDIF (EXTERNAL) Mark Mendoza MD Work Phone: Start: 12-27-2022 Creatinine [Mass/vol ume] in Serum or Plasma Mark Mendoza MD Work Phone: Start: 12-20-2022 CBCDIF (EXTERNAL) Mark Mendoza MD Work Phone: Start: 12-20-2022 Creatinine [Mass/vol ume] in Serum or Plasma Mark Mendoza MD Work Phone: Start: 11-18-2022 Echocardiography GEOVANI MATIAS Start: 11-17-2022 Bacteria Detection (PCR) Dr. Peter Thayer Work Phone: Start: 11-17-2022 Bacteria identified in Blood by Culture Dr. Peter Thayer Work Phone: Start: 11-17-2022 Investigation of transfusion reaction Dr. Peter Thayer Work Phone: Start: 11-17-2022 Legionella pneumophi la antigen assay Dr. Peter Thayer Work Phone: Start: 11-17-2022 Microbial culture, routine Dr. Peter Thayer Work Phone: Start: 11-17-[address] Peter Thayer Work Phone: Start: 11-16-2022 X-ray of both feet Dr. Peter Thayer Work Phone: Start: 11-15-2022 Plain chest X-ray Start: 01-07-2021 Antibody screen Comment on above: Order Comment: Jeremieu s: M Result Comment: Diya ent was NOT transfused or in the past 3 months. Antibody screen not indicated. Start: 01-07-2021 Ecg routine ecg w/le ast 12 lds i&r only Start: 11-19-2020 Antibody screen Comment on above: Order Comment: Miles s: M Start: 09-03-2020 Repair of hip ROCIO BARTLETT MD Comment on above: right posterior hip Start: 01-18-2017 INSRT INFUS DEVC SUP MARY ELLEN PROVIDER UNKNOWN Start: 01-15-2017 EXCISION LUMBAR VERTEBRA PROVIDER UNKNOWN Back structure, excl uding neck (body structure) ROCIO BARTLETT MD Comment on above: Surgery 2017 Fusion of lumbosacra l region of spine by posterior approach ROCIO BARTLETT MD Comment on above: L4- 5? H/O: colostomy S/P colostomy ([facility]) Tereso Herrera MD Work Phone: H/O: colostomy Dr. Rocio Bartlett MD Work Phone: H/O: colostomy Dr. Peter ocampo DO H/O: colostomy Dr. Peter ocampo DO H/O: colostomy Dr. Peter ocampo DO H/O: colostomy Dr. Peter ocampo DO H/O: colostomy Dr. Peter ocampo DO H/O: colostomy Dr. Peter ocampo DO Plan of Treatment Date Care Activity Detail Author Start: 2042 RSV Immunization for Adults (1 - 1-dose 75+ series) RSV Immunization for Adults (1 - 1-dose 75+ series) [facility] Start: 2027 RSV Immunization age d 60 or older (1 - 1-dose 60+ series) RSV Immunization aged 60 or older (1 - 1-dose 60+ series) [facility] Start: 11-07-2024 [facility] Start: 11-07-2024 Microbial culture, routine [facility] Start: 11-03-2024 Diabetes: Estimated Glomerular Filtration Rate for Kidney [facility] Diabetes: Estimated Glomerular Filtration Rate for Kidney [facility] Start: 11-01-2024 Patient discharge [facility] Start: 11-01-2024 Consultation [facility] Start: 10-31-2024 Inhalation therapy procedure [facility] Start: 10-30-2024 [facility] Start: 10-30-2024 Consultation for treatment [facility] Start: 10-29-2024 Ambulation without limitation [facility] Start: 10-29-2024 Assessment of risk o f venous thromboembolism [facility] Start: 10-29-2024 Care regimes management [facility] Start: 10-29-2024 Consultation [facility] Start: 10-29-2024 Insertion of cathete r into peripheral vein [facility] Start: 10-29-2024 Measuring intake and output [facility] Start: 10-29-2024 Notification of physician [facility] Start: 10-29-2024 Oxygen therapy [facility] Start: 10-29-2024 Physiotherapy of chest [facility] Start: 10-29-2024 Providing care accor ding to standard [facility] Start: 10-29-2024 Referral to occupati onal therapist [facility] Start: 10-29-2024 Referral to service [facility] Start: 10-29-2024 Speech therapy assessment [facility] Start: 10-29-2024 End: 10-29-2024 [facility] Start: 10-29-2024 Following clinical p athway protocol [facility] Start: 10-29-2024 Wound care [facility] Start: 10-29-2024 Legionella pneumophi la Ag [Presence] in Urine [facility] Start: 10-29-2024 Respiratory pathogen s DNA and RNA panel - Respiratory specimen by ABIGAIL with probe detection [facility] Start: 10-29-2024 Streptococcus pneumo niae antigen assay [facility] Start: 10-29-2024 Hospital admission, emergency, from emergency room, medical nature [facility] Start: 10-29-2024 Verification routine [facility] Start: 10-29-2024 Admission procedure [facility] Start: 10-29-2024 Blood culture [facility] Start: 10-29-2024 Continuous pulse oximetry [facility] Start: 10-29-2024 Dual pressure sponta neous ventilation support [facility] Start: 10-29-2024 [facility] Start: 10-29-2024 End: 10-29-2024 [facility] Start: 10-29-2024 Patient referral to dietitian [facility] Start: 10-27-2024 Hemoglobin A1c measurement Brenda betes: Hemoglobin A1C [facility] Start: 10-16-2024 Patient discharge [facility] Start: 10-15-2024 [facility] Start: 10-13-2024 End: 10-14-2024 [facility] Start: 10-13-2024 Dual pressure sponta neous ventilation support [facility] Start: 10-12-2024 Continuous pulse oximetry [facility] Start: 10-12-2024 Contact precautions [facility] Start: 10-12-2024 Respiratory secretio n precautions [facility] Start: 10-12-2024 Oxygen therapy [facility] Start: 10-12-2024 Wound care [facility] Start: 10-12-2024 End: 10-12-2024 Following clinical pathway protocol [facility] Start: 10-12-2024 Blood culture [facility] Start: 10-12-2024 Elevation of head of bed [facility] Start: 10-12-2024 Patient education [facility] Start: 10-12-2024 [facility] Start: 10-12-2024 Ambulation without limitation [facility] Start: 10-12-2024 Assessment of risk o f venous thromboembolism [facility] Start: 10-12-2024 Care regimes management [facility] Start: 10-12-2024 Catheterization of vein [facility] Start: 10-12-2024 Elevation of affecte d extremity [facility] Start: 10-12-2024 Insertion of cathete r into peripheral vein [facility] Start: 10-12-2024 Measuring intake and output [facility] Start: 10-12-2024 Notification of physician [facility] Start: 10-12-2024 Patient education [facility] Start: 10-12-2024 Providing care accor ding to standard [facility] Start: 10-12-2024 End: 10-12-2024 [facility] Start: 10-12-2024 Verification routine [facility] Start: 10-12-2024 Consultation for treatment [facility] Start: 10-12-2024 [facility] Start: 10-12-2024 Hospital admission, emergency, from emergency room, medical nature [facility] Start: 10-12-2024 Admission procedure [facility] Start: 10-12-2024 End: 10-12-2024 [facility] Start: 10-12-2024 D-dimer assay, quantitative [facility] Start: 10-12-2024 Continuous positive airway pressure ventilation treatment [facility] Start: 10-12-2024 Inhalation therapy procedure [facility] Start: 10-12-2024 Patient referral to dietitian [facility] Start: 07-29-2024 Hepatitis B surface antibody level LDL Cholesterol [facility] Start: 05-30-2024 End: 05-30-2024 Patient encounter procedure 05/30/2024 10:00 AM EST [facility] [address] [place] [phone] Lenard Ling MD [address] [place], [place] [address] [facility] Start: 05-11-2024 End: 05-11-2024 Patient encounter procedure 05/11/2024 8:30 AM EST Appointment [facility] MRI [address] [place] [address] Lenard Ling MD [address] [place] [address] [address] [place], [place] [id number] [facility] MRI Start: 04-28-2024 Hemoglobin A1c measurement HbA1C [facility] Start: 04-19-2024 End: 04-19-2024 Patient encounter procedure 04/19/2024 8:30 AM EST Appointment [facility] MRI [address] [place] [phone] Lenard Ling MD [address] [place], [place] [id number] [facility] MRI Start: 04-04-2024 End: 04-04-2024 Patient encounter procedure 04/04/2024 11:00 AM EST Office Visit [facility] [address] [place] [phone] Lenard Ling MD [address] [place], [place] [id number] [facility] [address] Start: 03-29-2024 End: 03-29-2024 Patient encounter procedure 03/29/2024 11:00 AM EST Office Visit Urology [address] [address] Willem Glaser MD [address] [place] [address] suprapubic cath change 1st, pt is coming viaq cot Urology Comment on above: suprapubic cath alanis ge 1st, pt is coming viaq cot Start: 02-29-2024 End: 02-28-2025 Creatinine [Mass/volume] in Serum or Plasma Creatinine, Serum Lab Routine Sacral decubitus ulcer, stage IV (HCC) Expected: 02/29/2024 (Approximate), Expires: 02/28/2025 [facility] Comment on above: Expected: 02/29/2024 (Approximate), Expires: 02/28/2025 Start: 02-29-2024 End: 02-28-2025 MR Pelvis WO and W contrast IV MR pelvis w and wo contrast Imaging Routine Sacral decubitus ulcer, stage IV (HCC) Expected: 02/29/2024, Expires: 02/28/2025 [facility] Work Phone: Comment on above: Expected: 02/29/2024 , Expires: 02/28/2025 Start: 02-29-2024 End: 02-29-2024 Patient encounter procedure 02/29/2024 10:00 AM EDT Office Visit [facility] [address] [place] [phone] Lenard Ling MD [address] [place] [address] [facility] Start: 01-30-2024 Hemoglobin A1c measurement HbA1C [facility] Start: 01-23-2024 End: 01-23-2024 Patient encounter procedure 01/23/2024 9:00 AM EDT Office Visit Urology [address] [place], [place] [id number] Alexei Bello APRN.WATER REUSE PROGRAM MANAGER, DNP [address] [place], [place] [phone] [facility] Comment on above: [facility] Start: 01-15-2024 COVID-19 Vaccine ( season) COVID-19 Vaccine ( season) [facility] Start: 01-15-2024 Covid-19 Vaccine ( season) Covid-19 Vaccine ( season) [facility] Start: 01-15-2024 Influenza vaccination [facility] Start: 01-05-2024 End: 01-05-2024 Admission to same day surgery center 01/05/2024 9:00 AM EDT - 01/05/2024 10:30 AM EDT Surgery [facility] [address] [place] [address] Maria C Hernandez MD, MD [address] [place] [address] INSERTION CATHETER SUPRAPUBIC [facility] Comment on above: INSERTION CATHETER S UPRAPUBIC Start: 01-05-2024 End: 01-05-2024 Aspiration bladder insert suprapubic catheter INSERTION CATHETER SUPRAPUBIC Paraplegia (HCC) Urinary retention 01/05/2024 9:00 AM EDT [facility] Start: 01-05-2024 Subsequent hospital visit by physician 01/05/2024 9:00 AM EDT Hospital Encounter [facility] [address] [place] [address] Maria C Hernandez MD, MD [address] [place] [address] Paraplegia (HCC) [G82.20] [facility] Comment on above: Paraplegia (HCC) [G8 2.20] Start: 12-01-2023 End: 12-01-2023 Nursing evaluation of patient and report 12/01/2023 9:00 AM EDT Nurse Visit Urology [address] [address] , Nurse [place] [place] [address] [place] [address] bartlett catheter change Urology Comment on above: bartlett catheter prakash e Start: 11-24-2023 End: 11-24-2023 Nursing evaluation of patient and report 11/24/2023 9:00 AM EDT Nurse Visit Urology [address] [address] Mc, Nurse [facility] [place] [address] [place] [address] cath change Urology Comment on above: cath change Start: 11-21-2023 End: 11-21-2023 Patient encounter procedure 11/21/2023 9:00 AM EDT Office Visit Urology [address] [place] [address] Alexei Bello APRN.WATER REUSE PROGRAM MANAGER, DNP [address] [place] [address] [facility] Comment on above: [facility] Start: 09-15-2023 Blood chemistry [facility] Start: 09-14-2023 Blood chemistry [facility] Start: 09-13-2023 Patient discharge [facility] Start: 09-13-2023 Administration of bl ood product [facility] Start: 09-12-2023 Oxygen therapy [facility] Start: 09-10-2023 [facility] Start: 09-07-2023 Care planning and pr oblem solving actions [facility] Start: 09-06-2023 [facility] Start: 09-04-2023 [facility] Start: 09-04-2023 [facility] Start: 09-02-2023 [facility] Start: 09-02-2023 Administration of bl ood product [facility] Start: 09-02-2023 Consultation [facility] Start: 09-01-2023 Administration of bl ood product [facility] Start: 09-01-2023 Wound care [facility] Start: 09-01-2023 Administration of bl ood product [facility] Start: 08-31-2023 Dual pressure sponta neous ventilation support [facility] Start: 08-31-2023 Consultation for treatment [facility] Start: 08-31-2023 Application of intermittent pneumatic compression device [facility] Start: 08-31-2023 Following clinical p athway protocol [facility] Start: 08-31-2023 Aspiration precautions [facility] Start: 08-31-2023 Assessment of risk o f venous thromboembolism [facility] Start: 08-31-2023 Care regimes management [facility] Start: 08-31-2023 Fall prevention [facility] Start: 08-31-2023 Insertion of cathete r into peripheral vein [facility] Start: 08-31-2023 Irrigation of urinar y bladder [facility] Start: 08-31-2023 Measuring intake and output [facility] Start: 08-31-2023 Notification of physician [facility] Start: 08-31-2023 Providing care accor ding to standard [facility] Start: 08-31-2023 Provision of activit y privileges [facility] Start: 08-31-2023 Referral to occupati onal therapist [facility] Start: 08-31-2023 Referral to service [facility] Start: 08-31-2023 [facility] Start: 08-31-2023 Verification routine [facility] Start: 08-31-2023 Admission procedure [facility] Start: 08-31-2023 Hospital admission, emergency, from emergency room, medical nature [facility] Start: 08-31-2023 Bacteria identified in Urine by Culture [facility] Start: 08-31-2023 [facility] Start: 08-31-2023 Patient referral to dietitian [facility] Start: 07-29-2023 Administration of bl ood product [facility] Start: 07-29-2023 End: 07-29-2023 [facility] Start: 07-29-2023 End: 07-29-2023 Blood culture [facility] Start: 07-29-2023 Bacteria identified in Blood by Culture Blood Culture [facility] Start: 07-29-2023 Bacteria identified in Urine by Culture [facility] Start: 06-24-2023 Anaerobic microbial culture Anaerobic Culture [facility] Start: 06-24-2023 Microbial culture, routine Wound Cul ture [facility] Start: 06-12-2023 Hemoglobin A1c measurement HbA1C [facility] Start: 06-12-2023 Hemoglobin A1c/Hemoglobin.total in Blood HBA1C [facility] Start: 05-16-2023 Behavioral Health Screening Behavioral Health Screening [facility] Start: 05-16-2023 Depression Assessment Depression Ass essment [facility] Start: 02-11-2023 Blood chemistry [facility] Start: 02-10-2023 Blood chemistry [facility] Start: 02-09-2023 Blood chemistry [facility] Start: 02-08-2023 Blood chemistry [facility] Start: 02-07-2023 Blood chemistry [facility] Start: 02-06-2023 [facility] Start: 02-06-2023 Blood chemistry [facility] Start: 02-06-2023 Partial thromboplast in time, activated [facility] Start: 02-06-2023 Patient discharge [facility] Start: 02-02-2023 Following clinical p athway protocol [facility] Start: 02-02-2023 Peripherally inserte d central catheter care [facility] Start: 02-02-2023 [facility] Start: 02-02-2023 [facility] Start: 02-02-2023 End: 02-02-2023 Wound care [facility] Start: 02-02-2023 Consultation [facility] Start: 02-02-2023 Consultation for treatment [facility] Start: 02-02-2023 End: 02-02-2023 Consultation [facility] Start: 02-02-2023 Chart related administrative procedure [facility] Start: 02-02-2023 Patient referral to dietitian [facility] Start: 02-01-2023 Following clinical p athway protocol [facility] Start: 02-01-2023 Application of elast ic bandage [facility] Start: 02-01-2023 Aspiration precautions [facility] Start: 02-01-2023 Assessment of risk o f venous thromboembolism [facility] Start: 02-01-2023 Care regimes management [facility] Start: 02-01-2023 Consultation [facility] Start: 02-01-2023 Consultation for treatment [facility] Start: 02-01-2023 Continuous pulse oximetry [facility] Start: 02-01-2023 Fall prevention [facility] Start: 02-01-2023 Inhalation therapy procedure [facility] Start: 02-01-2023 Insertion of cathete r into peripheral vein [facility] Start: 02-01-2023 Introduction of urin renetta catheter [facility] Start: 02-01-2023 Measuring intake and output [facility] Start: 02-01-2023 Methicillin resistan t Staphylococcus aureus screening test [facility] Start: 02-01-2023 Notification of physician [facility] Start: 02-01-2023 Oxygen therapy [facility] Start: 02-01-2023 Peripherally inserte d central catheter care [facility] Start: 02-01-2023 Providing care accor ding to standard [facility] Start: 02-01-2023 Provision of activit y privileges [facility] Start: 02-01-2023 Referral to occupati onal therapist [facility] Start: 02-01-2023 Referral to service [facility] Start: 02-01-2023 Speech therapy assessment [facility] Start: 02-01-2023 [facility] Start: 02-01-2023 Admission procedure [facility] Start: 02-01-2023 Bacteria identified in Blood by Culture Blood Culture [facility] Start: 02-01-2023 End: 02-01-2023 Blood culture [facility] Start: 02-01-2023 [facility] Start: 01-14-2023 Covid-19 Vaccine ( season) Covid-19 Vaccine ( season) [facility] Start: 01-14-2023 Influenza vaccination [facility] Start: 11-21-2022 Dual pressure sponta neous ventilation support [facility] Start: 11-20-2022 Dual pressure sponta neous ventilation support [facility] Start: 11-19-2022 Dual pressure sponta neous ventilation support [facility] Start: 11-18-2022 Dual pressure sponta neous ventilation support [facility] Start: 11-17-2022 Dual pressure sponta neous ventilation support [facility] Start: 11-17-2022 Bacteria identified in Urine by Culture Urine Culture [facility] Start: 11-17-2022 Wound Culture Wound Culture [facility] Start: 11-17-2022 Patient discharge [facility] Start: 11-17-2022 Telepractice consultation [facility] Start: 11-17-2022 [facility] Start: 11-17-2022 Referral to neurologist [facility] Start: 11-17-2022 Referral to plate mill mill hand [facility] Start: 11-17-2022 Consultation for treatment [facility] Start: 11-17-2022 Administration of bl ood product [facility] Start: 11-17-2022 End: 11-17-2022 [facility] Start: 11-17-2022 [facility] Start: 11-16-2022 Dual pressure sponta neous ventilation support [facility] Start: 11-16-2022 [facility] Start: 11-16-2022 End: 11-16-2022 Blood culture [facility] Start: 11-16-2022 Consultation [facility] Start: 11-16-2022 Bacterial nucleic ac id assay [facility] Start: 11-16-2022 [facility] Start: 11-16-2022 Blood chemistry [facility] Start: 11-15-2022 Urinary bladder resi dual urine study [facility] Start: 11-15-2022 Introduction of urin renetta catheter [facility] Start: 11-15-2022 Dual pressure sponta neous ventilation support [facility] Start: 11-15-2022 Following clinical p athway protocol [facility] Start: 11-15-2022 Assessment of risk o f venous thromboembolism [facility] Start: 11-15-2022 Cardiac monitoring [facility] Start: 11-15-2022 Care regimes management [facility] Start: 11-15-2022 Catheterization of vein [facility] Start: 11-15-2022 Consultation [facility] Start: 11-15-2022 Continuous pulse oximetry [facility] Start: 11-15-2022 Inhalation therapy procedure [facility] Start: 11-15-2022 Insertion of cathete r into peripheral vein [facility] Start: 11-15-2022 Measuring intake and output [facility] Start: 11-15-2022 Notification of physician [facility] Start: 11-15-2022 Oxygen therapy [facility] Start: 11-15-2022 Patient referral to dietitian [facility] Start: 11-15-2022 Providing care accor ding to standard [facility] Start: 11-15-2022 Referral to occupati onal therapist [facility] Start: 11-15-2022 Referral to service [facility] Start: 11-15-2022 Vital signs measurements [facility] Start: 11-15-2022 [facility] Start: 11-15-2022 Troponin I measurement [facility] Start: 11-15-2022 Verification routine [facility] Start: 11-15-2022 Admission procedure [facility] Start: 11-15-2022 End: 11-15-2022 Blood culture [facility] Start: 11-15-2022 Bacteria identified in Blood by Culture Blood Culture [facility] Start: 2022 PROSTATE CANCER SCRE ENING DISCUSSION PROSTATE CANCER SCREENING DISCUSSION [facility] Start: 2022 Prostate specific an tigen measurement Prostate Cancer Screening Discussion [facility] Start: 05-16-2022 DEPRESSION ASSESSMENT DEPRESSION ASS ESSMENT [facility] Start: 05-22-2021 Hemoglobin A1c/Hemoglobin.total in Blood HBA1C [facility] Start: 2017 Pneumococcal Vaccine : 50+ Years (1 of 1 - PCV) Pneumococcal Vaccine: 50+ Years (1 of 1 - PCV) [facility] Start: 2017 SHINGRIX VACCINE (1 of 2) CADENA GRIX VACCINE (1 of 2) [facility] Start: 2017 Zoster Vaccines (1 of 2) Zoste r Vaccines (1 of 2) [facility] Start: 2012 COLOGUARD (FIT-DNA) COLOGUARD (FIT-D NA) [facility] Start: 2012 Colonoscopy COLONOSCOPY [facility] Start: 2012 COLORECTAL CANCER SCREENING COLORECTAL CANCER SCREENING [facility] Start: [address] [facility] Start: 2012 FECAL OCCULT BLOOD FECAL OCCULT BLOO D [facility] Start: 2012 Screening for malign ant neoplasm of colon [facility] Start: 2012 SIGMOIDOSCOPY SIGMOIDOSCOPY Cleanna contreras [facility] Start: 1987 Hepatitis B Vaccine (1 of 3 - Risk Dialysis 4-dose series) Hepatitis B Vaccine (1 of 3 - Risk Dialysis 4-dose series) [facility] Start: 1986 DTaP/Tdap/Td Vaccine s (1 - Tdap) DTaP/Tdap/Td Vaccines (1 - Tdap) [facility] Start: 1986 Hepatitis B Vaccines (1 of 3 - 19+ 3-dose series) Hepatitis B Vaccines (1 of 3 - 19+ 3-dose series) [facility] Start: 1986 Pneumococcal Vaccine : 50+ (1 of 2 - PCV) Pneumococcal Vaccine: 50+ (1 of 2 - PCV) [facility] Start: 1986 Urine microalbumin profile [facility] Start: 1985 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 ANITA DISEASE VISIT ANNUAL PCP TEAM CHRONIC DISEASE VISIT [facility] Start: 1985 Anxiety Screening Anxiety Screening [facility] Start: 1985 BP CONTROLLED (<130/80) BP CON TROLLED (<130/80) [facility] Start: 1985 Depression Screening Depression Scre ing [facility] Start: 1985 Diabetes: Urine Albumin-Creatinine Ratio for Kidney Health Diabetes: Urine Albumin-Creatinine Ratio for Kidney Health [facility] Start: 1985 Hepatitis B surface antibody level LDL CHOLESTEROL [facility] Start: 1985 HEPATITIS C SCREENING HEPATITIS C [facility] Start: 1985 Hepatitis C screening Hepatitis C [facility] Start: 1985 HIV SCREENING HIV SCREENING [facility] Start: 1985 HIV screening HIV Screening [facility] Start: 1979 Depression Screening Depression Scre ing [facility] Start: 1977 3 comp foot exam completed DIABETIC FOOT EXAM [facility] Start: 1977 Diabetic foot examination [facility] Start: 1977 Glaucoma screening [facility] Start: 1977 Hepatitis B screening URINE ALBUMIN:CREATININE RATIO [facility] Start: 1977 Hepatitis C antibody , confirmatory test DILATED RETINAL EXAM [facility] Start: 1977 Preventive dental service Diabetes: Dental Exam [facility] Start: 1973 PNEUMOCOCCAL (1 - PCV) PNEUMOCOCCAL (1 - PCV) [facility] Start: 1973 Pneumococcal vaccination [facility] Start: 1973 Pneumococcal Vaccine : Pediatrics (0 to 5 Years) and At-Risk Patients (6 to 64 Years) (1 of 2 - PCV) Pneumococcal Vaccine: Pediatrics (0 to 5 Years) and At-Risk Patients (6 to 64 Years) (1 of 2 - PCV) [facility] Start: 1968 MMR Vaccines (1 of 1 - Standard series) MMR Vaccines (1 of 1 - Standard series) [facility] Start: 1967 COVID-19 VACCINE (#1) COVID-19 VACCI NE (#1) [facility] Start: 1967 HEPATITIS B (1 of 3 - 3-dose series) HEPATITIS B (1 of 3 - 3-dose series) [facility] Start: 1967 Hepatitis B Vaccine (1 of 3 - 3-dose series) Hepatitis B Vaccine (1 of 3 - 3-dose series) [facility] Start: 1967 HIV screening HIV Screening [facility] Start: 1967 Lipid panel Lipid Panel [facility] Start: 1967 Screening for malign ant neoplasm of colon [facility] Alanine aminotransfe rase [Enzymatic activity/volume] in Serum or Plasma [facility] Albumin [Mass/volume ] in Serum or Plasma [facility] Alkaline phosphatase [Enzymatic activity/volume] in Serum or Plasma [facility] Anion gap in Serum o r Plasma [facility] Anion gap in Serum o r Plasma [facility] Anion gap in Serum o r Plasma [facility] Anion gap in Serum o r Plasma [facility] Anion gap in Serum o r Plasma [facility] Anion gap in Serum o r Plasma [facility] Anion gap in Serum o r Plasma [facility] Anion gap in Serum o r Plasma [facility] Anion gap in Serum o r Plasma [facility] Anion gap in Serum o r Plasma [facility] Anion gap measurement [facility] Anion gap measurement [facility] Anion gap measurement [facility] Aspartate aminotrans ferase [Enzymatic activity/volume] in Serum or Plasma [facility] Bacteria identified in Sputum by Respiratory culture [facility] Bilirubin measuremen t, urine [facility] Bilirubin, total measurement [facility] BUN/Creatinine ratio [facility] BUN/Creatinine ratio [facility] BUN/Creatinine ratio [facility] BUN/Creatinine ratio [facility] BUN/Creatinine ratio [facility] BUN/Creatinine ratio [facility] BUN/Creatinine ratio [facility] BUN/Creatinine ratio [facility] BUN/Creatinine ratio [facility] BUN/Creatinine ratio [facility] BUN/Creatinine ratio [facility] BUN/Creatinine ratio [facility] BUN/Creatinine ratio [facility] Calcium [Mass/volume ] in Serum or Plasma [facility] Calcium [Mass/volume ] in Serum or Plasma [facility] Calcium [Mass/volume ] in Serum or Plasma [facility] Calcium [Mass/volume ] in Serum or Plasma [facility] Calcium [Mass/volume ] in Serum or Plasma [facility] Calcium [Mass/volume ] in Serum or Plasma [facility] Calcium [Mass/volume ] in Serum or Plasma [facility] Calcium [Mass/volume ] in Serum or Plasma [facility] Calcium [Mass/volume ] in Serum or Plasma [facility] Calcium [Mass/volume ] in Serum or Plasma [facility] Calcium [Mass/volume ] in Serum or Plasma [facility] Calcium [Mass/volume ] in Serum or Plasma [facility] Calcium [Mass/volume ] in Serum or Plasma [facility] Carbon dioxide, tota l [Moles/volume] in Central venous blood [facility] Carbon dioxide, tota l [Moles/volume] in Central venous blood [facility] Carbon dioxide, tota l [Moles/volume] in Central venous blood [facility] Carbon dioxide, tota l [Moles/volume] in Central venous blood [facility] Carbon dioxide, tota l [Moles/volume] in Central venous blood [facility] Carbon dioxide, tota l [Moles/volume] in Central venous blood [facility] Carbon dioxide, tota l [Moles/volume] in Central venous blood [facility] Carbon dioxide, tota l [Moles/volume] in Central venous blood [facility] Carbon dioxide, tota l [Moles/volume] in Central venous blood [facility] Carbon dioxide, tota l [Moles/volume] in Central venous blood [facility] Carbon dioxide, tota l [Moles/volume] in Serum or Plasma [facility] Carbon dioxide, tota l [Moles/volume] in Serum or Plasma [facility] Carbon dioxide, tota l [Moles/volume] in Serum or Plasma [facility] Chloride [Moles/volu me] in Serum or Plasma [facility] Chloride [Moles/volu me] in Serum or Plasma [facility] Chloride [Moles/volu me] in Serum or Plasma [facility] Creatinine [Mass/vol ume] in Serum or Plasma [facility] Creatinine [Mass/vol ume] in Serum or Plasma [facility] Creatinine [Mass/vol ume] in Serum or Plasma [facility] Creatinine [Mass/vol ume] in Serum or Plasma [facility] Creatinine [Mass/vol ume] in Serum or Plasma [facility] Creatinine [Mass/vol ume] in Serum or Plasma [facility] Creatinine [Mass/vol ume] in Serum or Plasma [facility] Creatinine [Mass/vol ume] in Serum or Plasma [facility] Creatinine [Mass/vol ume] in Serum or Plasma [facility] Creatinine [Mass/vol ume] in Serum or Plasma [facility] Creatinine [Moles/vo lume] in Serum or Plasma [facility] Creatinine [Moles/vo lume] in Serum or Plasma [facility] Creatinine [Moles/vo lume] in Serum or Plasma [facility] Debridement bone mus walt &/fascia 20 sq cm/< DEBRIDEMENT, SKIN, SUBCUTANEOUS TISSUE, MUSCLE, AND BONE, LOWER EXTREMITY Pressure ulcer of sacral region, stage 4 (HCC) [facility] Operating Room Erythrocyte mean corpuscular volume determination [facility] Erythrocyte mean corpuscular volume determination [facility] Erythrocyte mean corpuscular volume determination [facility] Erythrocyte mean corpuscular volume determination [facility] Erythrocyte mean corpuscular volume determination [facility] Erythrocyte mean corpuscular volume determination [facility] Erythrocyte mean corpuscular volume determination [facility] Erythrocyte mean corpuscular volume determination [facility] Erythrocyte mean corpuscular volume determination [facility] Erythrocyte mean corpuscular volume determination [facility] Glucose [Mass/volume ] in Serum or Plasma [facility] Glucose [Mass/volume ] in Serum or Plasma [facility] Glucose [Mass/volume ] in Serum or Plasma [facility] Glucose [Mass/volume ] in Serum or Plasma [facility] Glucose [Mass/volume ] in Serum or Plasma [facility] Glucose [Mass/volume ] in Serum or Plasma [facility] Glucose [Mass/volume ] in Serum or Plasma [facility] Glucose [Mass/volume ] in Serum or Plasma [facility] Glucose [Mass/volume ] in Serum or Plasma [facility] Glucose [Mass/volume ] in Serum or Plasma [facility] Glucose [Mass/volume ] in Serum or Plasma [facility] Glucose [Mass/volume ] in Serum or Plasma [facility] Glucose [Mass/volume ] in Serum or Plasma [facility] Hematocrit [Volume Fraction] of Blood [facility] Hematocrit [Volume Fraction] of Blood [facility] Hematocrit [Volume Fraction] of Blood [facility] Hematocrit [Volume Fraction] of Blood [facility] Hematocrit [Volume Fraction] of Blood [facility] Hematocrit [Volume Fraction] of Blood [facility] Hematocrit [Volume Fraction] of Blood [facility] Hematocrit [Volume Fraction] of Blood [facility] Hematocrit [Volume Fraction] of Blood [facility] Hematocrit [Volume Fraction] of Blood [facility] Hematocrit [Volume Fraction] of Blood [facility] Hematocrit [Volume Fraction] of Blood [facility] Hemoglobin [Mass/vol ume] in Blood [facility] Hemoglobin [Mass/vol ume] in Blood [facility] Hemoglobin [Mass/vol ume] in Blood [facility] Hemoglobin [Mass/vol ume] in Blood [facility] Hemoglobin [Mass/vol ume] in Blood [facility] Hemoglobin [Mass/vol ume] in Blood [facility] Hemoglobin [Mass/vol ume] in Blood [facility] Hemoglobin [Mass/vol ume] in Blood [facility] Hemoglobin [Mass/vol ume] in Blood [facility] Hemoglobin [Mass/vol ume] in Blood [facility] Hemoglobin [Mass/vol ume] in Blood [facility] Hemoglobin [Mass/vol ume] in Blood [facility] Hemoglobin [Presence ] in Urine [facility] Leukocytes [#/volume ] in Blood [facility] Leukocytes [#/volume ] in Blood [facility] Leukocytes [#/volume ] in Blood [facility] Leukocytes [#/volume ] in Blood [facility] Leukocytes [#/volume ] in Blood [facility] Leukocytes [#/volume ] in Blood [facility] Leukocytes [#/volume ] in Blood [facility] Leukocytes [#/volume ] in Blood [facility] Leukocytes [#/volume ] in Blood [facility] Leukocytes [#/volume ] in Blood [facility] Leukocytes [#/volume ] in Blood [facility] Leukocytes [#/volume ] in Blood [facility] Mean corpuscular hemoglobin concentration determination [facility] Mean corpuscular hemoglobin concentration determination [facility] Mean corpuscular hemoglobin concentration determination [facility] Mean corpuscular hemoglobin concentration determination [facility] Mean corpuscular hemoglobin concentration determination [facility] Mean corpuscular hemoglobin concentration determination [facility] Mean corpuscular hemoglobin concentration determination [facility] Mean corpuscular hemoglobin concentration determination [facility] Mean corpuscular hemoglobin concentration determination [facility] Mean corpuscular hemoglobin concentration determination [facility] Mean corpuscular hemoglobin concentration determination [facility] Mean corpuscular hemoglobin concentration determination [facility] Mean corpuscular hemoglobin determination [facility] Mean corpuscular hemoglobin determination [facility] Mean corpuscular hemoglobin determination [facility] Mean corpuscular hemoglobin determination [facility] Mean corpuscular hemoglobin determination [facility] Mean corpuscular hemoglobin determination [facility] Mean corpuscular hemoglobin determination [facility] Mean corpuscular hemoglobin determination [facility] Mean corpuscular hemoglobin determination [facility] Mean corpuscular hemoglobin determination [facility] Mean corpuscular hemoglobin determination [facility] Mean corpuscular hemoglobin determination [facility] Measurement of keton es in urine using dipstick [facility] Measurement of renal function [facility] Measurement of renal function [facility] Measurement of renal function [facility] Measurement of renal function [facility] Measurement of renal function [facility] Measurement of renal function [facility] Measurement of renal function [facility] Measurement of renal function [facility] Measurement of renal function [facility] Measurement of renal function [facility] Measurement of renal function [facility] Measurement of renal function [facility] Measurement of renal function [facility] Microscopic urinalysis [facility] Musc myocutaneous/fasciocutaneo us flap trunk FLAP PROCEDURE, MYOCUTANEOUS, TORSO Pressure ulcer of sacral region, stage 4 (HCC) [facility] Operating Room Neutrophil count [facility] Neutrophil count [facility] Neutrophil count [facility] Neutrophil count [facility] Neutrophil count [facility] Neutrophil count [facility] Neutrophil count [facility] Neutrophil count [facility] Neutrophil count [facility] Neutrophil count [facility] Neutrophil count [facility] Neutrophil count [facility] Neutrophil percent differential count [facility] Neutrophil percent differential count [facility] Neutrophil percent differential count [facility] Neutrophil percent differential count [facility] Neutrophil percent differential count [facility] Neutrophil percent differential count [facility] Neutrophil percent differential count [facility] Neutrophil percent differential count [facility] Neutrophil percent differential count [facility] Neutrophil percent differential count [facility] Neutrophil percent differential count [facility] Neutrophil percent differential count [facility] Patient Education [facility] Work Phone: Patient referral [facility] Work Phone: pH of Urine [facility] Platelets [#/volume] in Blood [facility] Platelets [#/volume] in Blood [facility] Platelets [#/volume] in Blood [facility] Platelets [#/volume] in Blood [facility] Platelets [#/volume] in Blood [facility] Platelets [#/volume] in Blood [facility] Platelets [#/volume] in Blood [facility] Platelets [#/volume] in Blood [facility] Platelets [#/volume] in Blood [facility] Platelets [#/volume] in Blood [facility] Platelets [#/volume] in Blood [facility] Platelets [#/volume] in Blood [facility] Potassium [Moles/vol ume] in Serum or Plasma [facility] Potassium [Moles/vol ume] in Serum or Plasma [facility] Potassium [Moles/vol ume] in Serum or Plasma [facility] Potassium measurement [facility] Potassium measurement [facility] Potassium measurement [facility] Potassium measurement [facility] Potassium measurement [facility] Potassium measurement [facility] Potassium measurement [facility] Potassium measurement [facility] Potassium measurement [facility] Potassium measurement [facility] Red blood cell count [facility] Red blood cell count [facility] Red blood cell count [facility] Red blood cell count [facility] Red blood cell count [facility] Red blood cell count [facility] Red blood cell count [facility] Red blood cell count [facility] Red blood cell count [facility] Red blood cell count [facility] Red blood [facility] count [facility] Red blood cell count [facility] Red cell distributio n width determination [facility] Red cell distributio n width determination [facility] Red cell distributio n width determination [facility] Red cell distributio n width determination [facility] Red cell distributio n width determination [facility] Red cell distributio n width determination [facility] Red cell distributio n width determination [facility] Red cell distributio n width determination [facility] Red cell distributio n width determination [facility] Red cell distributio n width determination [facility] Red cell distributio n width determination [facility] Red cell distributio n width determination [facility] RF Urinary bladder V iews W contrast via suprapubic tube IR SUPRAPUBIC TUBE PLACEMENT Radiology Routine Paraplegia (HCC) Urinary retention Ordered: 11/28/2023 [facility] Work Phone: Comment on above: Ordered: 11/28/2023 Serum chloride measurement [facility] Serum chloride measurement [facility] Serum chloride measurement [facility] Serum chloride measurement [facility] Serum chloride measurement [facility] Serum chloride measurement [facility] Serum chloride measurement [facility] Serum chloride measurement [facility] Serum chloride measurement [facility] Serum chloride measurement [facility] Sodium [Moles/volume ] in Serum or Plasma [facility] Sodium [Moles/volume ] in Serum or Plasma [facility] Sodium [Moles/volume ] in Serum or Plasma [facility] Sodium measurement [facility] Sodium measurement [facility] Sodium measurement [facility] Sodium measurement [facility] Sodium measurement [facility] Sodium measurement [facility] Sodium measurement [facility] Sodium measurement [facility] Sodium measurement [facility] Sodium measurement [facility] Specific gravity of Urine [facility] Total protein measurement [facility] Troponin T.cardiac [Mass/volume] in Serum or Plasma by High sensitivity method [facility] Troponin T.cardiac [Mass/volume] in Serum or Plasma by High sensitivity method [facility] Troponin T.cardiac [Mass/volume] in Serum or Plasma by High sensitivity method [facility] Urea nitrogen [Mass/volume] in Serum or Plasma [facility] Urea nitrogen [Mass/volume] in Serum or Plasma [facility] Urea nitrogen [Mass/volume] in Serum or Plasma [facility] Urea nitrogen [Mass/volume] in Serum or Plasma [facility] Urea nitrogen [Mass/volume] in Serum or Plasma [facility] Urea nitrogen [Mass/volume] in Serum or Plasma [facility] Urea nitrogen [Mass/volume] in Serum or Plasma [facility] Urea nitrogen [Mass/volume] in Serum or Plasma [facility] Urea nitrogen [Mass/volume] in Serum or Plasma [facility] Urea nitrogen [Mass/volume] in Serum or Plasma [facility] Urea nitrogen [Mass/volume] in Serum or Plasma [facility] Urea nitrogen [Mass/volume] in Serum or Plasma [facility] Urea nitrogen [Mass/volume] in Serum or Plasma [facility] Urinalysis, blood, qualitative [facility] Urine culture [facility] Urine dipstick for glucose [facility] Urine dipstick for leukocyte esterase [facility] Urine dipstick for nitrite [facility] Urine dipstick for protein [facility] Urine examination [facility] Urine microscopy: epithelial cells [facility] Urine Microscopy: wh ite cells [facility] Urobilinogen [Presen ce] in Urine [facility] Vancomycin [Mass/vol ume] in Serum or Plasma --trough [facility] Payers Date Payer Category Payer Self-pay [id number] 07-15-2023 Medicaid [id number] 07-15-2023 Medicaid [id number] 05-16-2022 Commercial Managed C are - PPO [employer] PPO [id number] 05-16-2022 Private Health Insurance [id number] 05-16-2022 Private Health Insurance [id number] 12-14-2018 Unknown [id number]. [id number] 11-13-2008 Unknown [id number] Unknown [id number] 2.16.840.1.191849.3.579. 2.627 Unknown [id number] Unknown [id number] 2.16.840.1.140143.3.579. 2.462 Unknown [id number] 2.16.840.1.541288.3.579. 2.462 Unknown [id number] 2.16.840.1.423864.3.579. 2.462 Unknown [id number] 2.16.840.1.193598.3.579. 2.462 Unknown [id number] 2.16.840.1.963226.3.579. 2.462 Unknown [id number] 2.16.840.1.867416.3.579. 2.462 Unknown [id number] 2.16.840.1.213340.3.579. 2.462 Unknown [id number] 2.16840.1.500831.3.579. 2.462 Unknown [id number] 2.16.840.1.011274.3.579. 2.462 Unknown [id number] 2.16840.1.876939.3.579. 2.462 Unknown [id number] 2.16840.1.227705.3.579. 2.462 Unknown 71984079 2.840.1.536127.3.579. 2.462 Unknown 13458954 2.840.1.194517.3.579. 2.462 Unknown [id number] 2.16840.1.874283.3.579. 2.462 Unknown [id number] 2.840.1.346134.3.579. 2.462 Unknown [id number] 2.840.1.518655.3.579. 2.462 Unknown 07495009 2.16840.1.603862.3.579. 2.462 Unknown [id number] 2.16840.1.821787.3.579. 2.462 Unknown [id number] 2.16840.1.495582.3.579. 2.462 Unknown 51363393 2.16840.1.605462.3.579. 2.462 Unknown [id number] 2.16840.1.704005.3.579. 2.462 Unknown [id number] 2.16840.1.039030.3.579. 2.462 Unknown [id number] 2.16.840.1.637276.3.579. 2.462 Unknown [id number] 2.16.840.1.458911.3.579. 2.462 Unknown [id number] 2.16.840.1.184578.3.579. 2.462 Unknown [id number] 2.16.840.1.368288.3.579. 2.462 Unknown 82483429 2.16840.1.661252.3.579. 2.462 Unknown 48848020 2.840.1.837128.3.579. 2.462 Unknown 85832032 2.840.1.866878.3.579. 2.462 Unknown [id number] 2.840.1.581495.3.579. 2.462 Unknown 40049389 2.840.1.024089.3.579. 2.462 Unknown [id number] 2.840.1.712996.3.579. 2.462 Unknown [id number] 2.840.1.676624.3.579. 2.462 Unknown [id number] 2.840.1.790801.3.579. 2.462 Unknown [id number] 2.840.1.476515.3.579. 2.462 Unknown [id number] 2.840.1.291526.3.579. 2.462 Unknown [id number] 2.840.1.096816.3.579. 2.462 Unknown [id number] 2.840.1.915174.3.579. 2.462 Unknown [id number] 2.16840.1.500175.3.579. 2.462 Unknown [id number] 2.16840.1.380342.3.579. 2.462 Unknown [id number] 2.840.1.899741.3.579. 2.462 Unknown [id number] 2.16.840.1.719415.3.579. 2.462 Unknown [id number] 2.16.840.1.490241.3.579. 2.462 Unknown [id number] 2.16.840.1.685160.3.579. 2.462 Unknown [id number] 2.16.840.1.269909.3.579. 2.462 Unknown [id number] 2.16.840.1.817299.3.579. 2.462 Unknown [id number] 2.16.840.1.542489.3.579. 2.462 Unknown [id number] 2.16.840.1.073730.3.579. 2.462 Unknown [id number] 2.16.840.1.979409.3.579. 2.462 Unknown [id number] 2.16.840.1.559719.3.579. 2.462 Unknown [id number] 2.16.840.1.405902.3.579. 2.462 Unknown [id number] 2.16.840.1.263185.3.579. 2.462 Unknown [id number] 2.16.840.1.155590.3.579. 2.462 Unknown [id number] 2.16.840.1.970003.3.579. 2.462 Unknown [id number] 2.16.840.1.948028.3.579. 2.462 Unknown [id number] 2.16.840.1.706254.3.579. 2.462 Unknown [id number] 2.16.840.1.739189.3.579. 2.462 Unknown [id number] 2.16.840.1.187516.3.579. 2.462 Unknown [id number] 2.16.840.1.864020.3.579. 2.462 Unknown [id number] 2.16.840.1.044914.3.579. 2.462 Unknown [id number] 2.16.840.1.828553.3.579. 2.462 Unknown [id number] 2.16.840.1.026634.3.579. 2.462 Unknown [id number] 2.16.840.1.036479.3.579. 2.462 Unknown [id number] 2.16.840.1.930403.3.579. 2.462 Unknown [id number] 2.16.840.1.928841.3.579. 2.462 Unknown [id number] 2.16.840.1.024758.3.579. 2.462 Unknown [id number] 2.16.840.1.776351.3.579. 2.462 Unknown [id number] 2.840.1.369491.3.579. 2.462 Unknown [id number] 2.16840.1.787306.3.579. 2.462 Unknown [id number] 2.840.1.768382.3.579. 2.462 Unknown [id number] 2.16.840.1.119329.3.579. 2.462 Unknown [id number] 2.16.840.1.414545.3.579. 2.462 Unknown [id number] 2.16840.1.408714.3.579. 2.462 Unknown 64992042 2.16.840.1.034240.3.579. 2.462 Unknown 40966258 2.16.840.1.962385.3.579. 2.462 Unknown [id number] 2.16.840.1.781813.3.579. 2.462 Unknown [id number] 2.16.840.1.310915.3.579. 2.462 Unknown [id number] 2.16840.1.640143.3.579. 2.462 Unknown [id number] 2.16840.1.839618.3.579. 2.462 Unknown [id number] 2.16840.1.017511.3.579. 2.462 Unknown [id number] 2.16840.1.818171.3.579. 2.462 Unknown 66833535 2.16840.1.955102.3.579. 2.462 Unknown 76251412 2.16840.1.764160.3.579. 2.462 Unknown 25052610 2.840.1.212429.3.579. 2.462 Unknown 68765059 2.840.1.607777.3.579. 2.462 Unknown 24590080 2.840.1.703053.3.579. 2.462 Unknown 24823298 2.840.1.570013.3.579. 2.462 Unknown 02815783 2.840.1.524184.3.579. 2.462 Unknown 88215308 2.840.1.216595.3.579. 2.462 Unknown 45134721 2.840.1.479992.3.579. 2.462 Unknown 52284473 2.840.1.838143.3.579. 2.462 Unknown 12159266 2.840.1.729229.3.579. 2.462 Unknown 44903457 2.840.1.123300.3.579. 2.462 Unknown 72197335 2.840.1.096399.3.579. 2.462 Unknown 48176461 2.840.1.775571.3.579. 2.462 Unknown 47079183 2.16840.1.490562.3.579. 2.462 Unknown 87486941 2.840.1.988499.3.579. 2.462 Unknown 70133810 2.16.840.1.081236.3.579. 2.462 Unknown 93052465 2.16.840.1.162272.3.579. 2.462 Unknown 82326750 2.16.840.1.713573.3.579. 2.462 Unknown 21268807 2.16840.1.019029.3.579. 2.462 Unknown 98509853 2.16840.1.609344.3.579. 2.462 Unknown 80539971 2.16840.1.377154.3.579. 2.462 Unknown 86739055 2.16840.1.194571.3.579. 2.462 Unknown 59876796 2.840.1.183688.3.579. 2.462 Unknown 52941534 2.840.1.360749.3.579. 2.462 Unknown 90072830 2.840.1.108352.3.579. 2.462 Unknown 62856302 2.840.1.650688.3.579. 2.462 Unknown 23337769 2.840.1.016508.3.579. 2.462 Unknown 84069787 2.840.1.878971.3.579. 2.462 Unknown 46859371 2.840.1.183036.3.579. 2.462 Unknown 54145479 2.16840.1.778755.3.579. 2.462 Unknown 95550951 2.16840.1.118193.3.579. 2.462 Unknown 93446513 2.16840.1.041469.3.579. 2.462 Unknown 93802215 2.840.1.906839.3.579. 2.462 Unknown 46217017 2.16.840.1.857094.3.579. 2.462 Unknown 99209813 2.16.840.1.705536.3.579. 2.462 Unknown [id number] 2.16.840.1.377827.3.579. 2.462 Unknown [id number] 2.16.840.1.508070.3.579. 2.462 Unknown [id number] 2.16.840.1.790048.3.579. 2.462 Unknown [id number] 2.16.840.1.831289.3.579. 2.462 Unknown [id number] 2.16.840.1.354733.3.579. 2.462 Unknown [id number] 2.16.840.1.537946.3.579. 2.462 Unknown [id number] 2.840.1.797011.3.579. 2.462 Unknown [id number] 2.16840.1.510336.3.579. 2.462 Social History Date Type Detail Facility Start: 11-15-2022 End: 08-31-2023 Tobacco smoking status [facility] Unknown if ever smoked [facility] Start: 1965 Sex Assigned At Male [facility] Start: 09-09-2016 End: 10-07-2023 Tobacco smoking status IAIS Never smoked tobacco [facility] Start: 09-09-2016 End: 02-29-2024 Tobacco use and exposure Smokeless tobacco non-user [facility] Start: 11-17-2022 End: 01-17-2024 Alcohol intake Current non-drinker of alcohol (finding) [facility] Start: 1965 Sex Assigned At Not on file [facility] Start: 11-17-2022 End: 02-29-2024 History of Social function [facility] Work Phone: Start: 11-17-2022 End: 02-29-2024 Tobacco use panel [facility] Work Phone: How hard is it for y ou to pay for the very basics like food, housing, medical care, and heating Not hard at all [facility] Work Phone: (I/We) worried jaleeljulian jonathon (my/our) food would run out before (I/we) got money to buy more. Never true [facility] Work Phone: In the past 12 month s, was there a time when you were not able to pay the mortgage or rent on time? No [facility] Work Phone: Sex Assigned At [facility] How often to you hav e a drink containing alcohol? Never [facility] Start: 02-29-2024 End: 10-29-2024 Tobacco smoking status NHIS Ex-smoker [facility] End: 05-16-2003 History of tobacco use Current smoker [facility] End: 05-16-2003 History of tobacco use Cigarette Smoker [facility] Start: 02-29-2024 Alcoholic beverage intake Ex-drinker (finding) [facility] Start: 12-14-2021 End: 09-14-2024 Sex Male (finding) [facility] NEGATED: Highlighted rowStart: NINF History of tobacco use Passive smoker [facility] Medical Equipment Procedure Code Equipment Code Equipment Origin al Text Equipment Identifier Dates Graft Deminerali zed Bone Matrix Bone Putty Pretreated 10ml - [id number] Start: 03-09-2017 Substitute Maste rgraft 20cm Bone Graft Strip Spine - [id number] Start: 03-09-2017 Liu-Rc-C-Kind Im plant - [id number] Start: 03-09-2017 Graft Deminerali zed Bone Matrix Bone Putty Pretreated 10ml - [id number] Start: 03-09-2017 Ewp-Zm-I-Kind Im plant - [id number] Start: 03-09-2017 Ppb-Li-W-Kind Im plant - [id number] Start: 03-09-2017 Ccj-Oe-Q-Kind Im plant - [id number] Start: 03-09-2017 Yzs-Bj-K-Kind Im plant - [id number] Start: 03-09-2017 Kji-Gc-V-Kind Im plant - [id number] Start: 03-09-2017 Jwc-Is-P-Kind Im plant - [id number] Start: 03-09-2017 Zwk-Yi-R-Kind Im plant - [id number] Start: 03-09-2017 Xgn-Zk-G-Kind Im plant - [id number] Start: 03-09-2017 1 Each four time s daily. [id number] Start: 06-17-2023 Goals Date Patient Goal Desired Activity /State Functional Status Date Assessment Result Facility 11-01-2024 Functional status Bedrest [facility] Work Phone: 10-31-2024 Functional status None [facility] Work Phone: 10-16-2024 Functional status Bedrest [facility] Work Phone: 10-16-2024 Functional status Bedrest [facility] Work Phone: 10-13-2024 Functional status Bedrest [facility] Work Phone: 09-13-2023 Functional status Bedrest [facility] Work Phone: 08-12-2023 Are you deaf, or do you have serious difficulty hearing No 08/12/2023 6:51 PM KENNT Lissette Bateman RN [facility] 08-12-2023 Are you blind, or do you have serious difficulty seeing, even when wearing glasses No 08/12/2023 6:51 PM KENNT Lissette Bateman RN No [facility] 08-12-2023 Do you have serious difficulty walking or climbing stairs No 08/12/2023 6:51 PM Lissette Trujillo RN No [facility] 08-12-2023 Do you have difficul ty dressing or bathing No 08/12/2023 6:51 PM Lissette Trujillo RN No [facility] 08-12-2023 Because of a physica l, mental, or emotional condition, do you have difficulty doing errands alone such as visiting a physician's office or shopping No 08/12/2023 6:51 PM EDT Lissette Bateman RN No [facility] 02-06-2023 [facility] Work Phone: 11-17-2022 Functional status Bedrest [facility] Work Phone: Mental Status Date Assessment Result Facility 11-01-2024 Cognitive function Voice/Name [facility] Work Phone: 10-16-2024 Cognitive function Voice/Name [facility] Work Phone: 10-13-2024 Cognitive function Voice/Name [facility] Work Phone: 06-12-2024 Cognitive function Awake;Alert;A ppropriate ;Follows Commands [facility] Work Phone: 06-05-2024 Cognitive function Voice/Name [facility] Work Phone: 09-13-2023 Cognitive function Voice/Name [facility] Work Phone: 08-12-2023 Because of a physica l, mental, or emotional condition, do you have serious difficulty concentrating, remembering, or making decisions No 08/12/2023 6:51 PM EDT Lissette Bateman RN No [facility] 02-05-2023 Cognitive function Voice/Name [facility] Work Phone: 11-17-2022 Cognitive function Voice/Name [facility] Work Phone: Clinical Notes 01-08-2021 to 11-09-2024 Note Date & Type Note Facility 11-09-2024 Progress note Note Date/Time November 09, 2024 2:19pm [facility] [address] [place] [address] Progress Note - Wound Care 11/09/24 1410 MR#: [id number] Acct: [id number] Name: MELISSA ELIAS Rep #:[id number] : [id number] 59 From: Peter Thayer DO PCP: Dr. Rocio Bartlett MD Status:R EG RCR Location: History of Present Illness Date of Service: 11/09/24 Chief Complaint: sacral decubitus ulcer History of Wound: Melissa is a pleasant 59 yo gentleman that has undergone an unfortunate series of events over the last several years which has left him paraplegic and with a sacral decubitus ulcer and residing in [facility]. He has been referred to the wound center for evaluation and treatment of his sacral ulcer. He has had a long history of degenerative disc disease of his spine and underwent spine surgery in August 2016 initially and then again in February 2017 due to osteomyelitis and infection of hardware. He underwent further surgery forfusion in December of 2020. He fell in November of 2022 getting up from his chair and then experienced worsening pain, weakness in his legs and ultimately became paraplegic from the waist down. He underwent surgery in [place] in January 2023 at [facility] and then had several complications including pneumonia, pulmonary embolisms and a sacral ulcer that developed into a large defect after multiple surgical debridements and osteomyelitis of his sacrum while at [facility] through the first part of 2023 and then attempted to come home to be cared for by his elderly mother which was not successful and he was hospitalized and discharged to [facility] where he has been residing and continues to reside. He has undergone many different treatments for his sacral ulcer including wound vac, silver dressings and Dakins and does have an air mattress but it is not an alternating pressure air mattress. The staff does try to offload his ulcer with wedges and pillows but it is difficult due to his chronic back pain. He is currently having the wound dressed with Dakins wet to dry and super absorber dressings twice daily. he reports being on chronic antibiotic treatment and IV treatment over the past year and states that he had MRI that showed resolution of osteomyelitis. (Records unavailable). He currently does not have any symptoms of systemic infection or localized infection. Denies fever, chills, nausea. Subjective Subjective Melissa returns today for evaluation and treatment of a sacral decubitus ulcer. Hehas been tolerating dressing changes with Dakins and super absorber dressings but unfortunately has been hospitalized twice this month and has had increased drainage and odor. Dressing changes were not done as frequently when he was hospitalized and he was not in his alternating pressure bed. Wound culture was taken by wound nurse at [facility] yesterday but only preliminary gram stain results are back. Denies fever, chills, erythema. Objective Data Objective Data Vital Signs: Vital Signs Temp Pulse Resp BP Pulse Ox O2 Del Method O2 Flow Rate 98.4 F 104 H 18 118/74 96 Nasal Cannula 2 11/09/24 09:23 11/09/24 09:23 11/09/24 09:23 11/09/24 09:23 10/14/24 00:14 10/26/24 09:12 11/09/24 09:23 FiO2 89 10/26/24 09:12 Oxygen Flow Rate (L/min) 2 Oxygen Delivery Method Nasal Cannula Weight: 141.067 kg Body Mass Index (BMI) 43.3 Physical Exam Const alert, oriented x3, no apparent distress and well nourished Constitutional Narrative: Morbidly obese, middle-aged, white male, sitting up in bed, appears comfortable and nontoxic General Appearance: cooperative and comfortable Nutritional Appearance: morbidly obese HEENT head/scalp atraumatic and moist oral mucous membranes Resp normal respiratory effort, no retractions, no use of accessory muscles and clearto auscultation bilaterally Resp Narrative: Distant due to body habitus Cardio regular rate, regular rhythm, S1 normal heart sound, S2 normal heart sound, no murmurs, no rub, no gallops and no clicks GI normal to inspection, nondistended, normoactive bowel sounds, soft to palpation and non-tender GI Narrative: colostomy present Extremity Extremity Narrative: Chronic bilateral lower extremity edema due to history of paraplegia and lack ofmovement, no cyanosis or clubbing General Extremity: edema bilateral lower extremity Details: moderate Skin Wounds: wounds noted Wound Narrative: as noted in clinical panel - large sacral ulcer and right ischial ulcer, no visible bone, shearing injury of left ischial area, area is irregular with fringe like skin in areas from repetitive shearing and pressure Right lateral foot with large serous blister and left heel with large serous blister - drained/decompressed using 18 G needle Neuro oriented x3, CN's II-XII intact bilaterally, No moves all extremities, No no focal motor deficits and No no sensory deficits noted Neuro Narrative: Bilateral lower extremity flaccidity due to history of L1 injury Speech: speech normal Psych affect normal Psych Narrative: Very pleasant, interacts appropriately Debridement Note Debridement Note Wound debrided: left ischium Laterality: Left Tissue Removed: Yellow slough, devitalized tissue No debridement was completed: No debridement was completed today Post-Debridement Measurements and Additional Note: Post-Debridement Measurements/Treatment - Nurse 1 - General Ulcer Assessment Start: 10/19/24 09:04 Freq: Status: Active Protocol: ELENA Activity Type Activity Date Activity User E-sign Co-sign Detail Recorded Client Recorded Date Recorded By Document 10/19/24 09:35 RB [id number] 10/19/24 09:41 RB Document 10/26/24 09:12 RB [id number] 10/26/24 09:25 RB Edit Result 10/26/24 09:12 RB (1) [id number] 10/26/24 09:30 RB Document 11/09/24 08:57 KW [id number] 11/09/24 09:27 KW Document 11/09/24 09:23 RB [id number] 11/09/24 09:31 RB Edit Result 11/09/24 09:23 RB (2) [id number] 11/09/24 10:07 RB (1) Respiratory Rate (12-18) 18 => 20 H Oxygen Delivery Method => Nasal Cannula O2 L/MIN (L/min) => 6 FIO2 % => 89 (2) O2 L/MIN (L/min) => 2 10/19/24 10/26/24 11/09/24 09:35 09:12 08:57 - Today's Visit Information Type of service Follow-up Visit Follow-up Visit Follow-up Visit (Physician/WATER REUSE PROGRAM MANAGER (Physician/WATER REUSE PROGRAM MANAGER (Physician/WATER REUSE PROGRAM MANAGER ) ) ) Arrival Mode Stretcher Wheelchair Wheelchair Transfer Assistance Kelli Lift Kelli Lift Patient Identification Verified (Name & Yes Yes Yes ) Patient Requires Transmission-Based No No Precautions Height and Weight Body Mass Index (BMI) 43.3 43.3 43.3 BMI Classification Obese Obese Obese Vital Signs Temperature (97.8 F-99.1 F) 97 F L 97.5 F L Temperature Source Temporal Temporal Pulse Rate (60-100) 87 104 H Pulse Location Monitor Monitor Respiratory Rate (12-18) 18 20 H Respiratory rate source Observation Observation Oxygen Delivery Method Nasal Cannula O2 L/MIN (L/min) 2 6 FIO2 % 83 89 Blood Pressure (90/60-120/80) 138/69 H 123/75 H Blood Pressure Mean (mm Hg) 92 91 Source Monitor Monitor Position Semi-Fowlers Semi-Fowlers Blood Pressure Location Left Arm Left Arm History Since Last Visit- (Skip if this is Patient's initial visit) Have you changed medications since your No No last visit? Any new allergies or adverse reactions No No Had a fall/change in ADL's that may No No increase risk of falls Signs or symptoms of abuse and/or No No neglect since last visit Have you been in the hospital since your No No last visit? Has dressing in place as prescribed Yes Yes Has compression in place as prescribed N/A N/A Has offloadiing in place as prescribed N/A Yes Experienced any changes in pain level or No No management Left Footwear Right Footwear Pain Scale: 0-10 Numeric Is Patient Pain Free? Yes Yes Yes 11/09/24 09:23 WC - Today's Visit Information Type of service Follow-up Visit (Physician/WATER REUSE PROGRAM MANAGER ) Arrival Mode Ambulatory Transfer Assistance None Patient Identification Verified (Name & Yes ) Patient Requires Transmission-Based No Precautions Height and Weight Body Mass Index (BMI) 43.3 BMI Classification Obese Vital Signs Temperature (97.8 F-99.1 F) 98.4 F Temperature Source Temporal Pulse Rate (60-100) 104 H Pulse Location Monitor Respiratory Rate (12-18) 18 Respiratory rate source Observation Oxygen Delivery Method O2 L/MIN (L/min) 2 FIO2 % Blood Pressure (90/60-120/80) 118/74 Blood Pressure Mean (mm Hg) 88 Source Monitor Position Semi-Fowlers Blood Pressure Location Left Arm History Since Last Visit- (Skip if this is Patient's initial visit) Have you changed medications since your No last visit? Any new allergies or adverse reactions No Had a fall/change in ADL's that may No increase risk of falls Signs or symptoms of abuse and/or No neglect since last visit Have you been in the hospital since your No last visit? Has dressing in place as prescribed Yes Has compression in place as prescribed N/A Has offloadiing in place as prescribed N/A Experienced any changes in pain level or No management Left Footwear No Footwear Right Footwear No Footwear Pain Scale: 0-10 Numeric Is Patient Pain Free? Yes WC - Nurse 1 - General Ulcer Measurement Start: 10/19/24 09:04 Freq: Status: Active Protocol: Activity Type Activity Date Activity User E-sign Co-sign Detail Recorded Client Recorded Date Recorded By Document 10/19/24 09:35 RB [id number] 10/19/24 09:41 RB Document 10/26/24 09:12 RB [id number] 10/26/24 09:25 RB Document 11/09/24 09:23 RB [id number] 11/09/24 09:31 RB 10/19/24 10/26/24 11/09/24 09:35 09:12 09:23 Wound Center Nurse 1 #5 Right Heel Blister -Combined with other wound No -Current Size (cm) - Length 0.1 -Current Size (cm) - Width 0.1 -Current Size (cm) - Depth 0.1 -Total Square Cm 0.01 -Photo Taken Yes -Tunneling No -Undermining/Tunneling No -Circular Undermining No -Exudate Amt Medium -Exudate Type Serosanguineous -Wound Margin Distinct, Outline Attached -Granulation Amt Medium (34-66%) -Granulation Quality Solvang -Slough/Fibrin Yes -Necrosis Amt Medium (34-66%) -Necrotic Tissue Type Adherent Slough -Structure Exposed N/A -Texture (Trish-wound Skin Appearance) Assessed,Callus -Moisture (Trish-wound Skin Appearance) Assessed -Color (Trish-wound Skin Appearance) Assessed -Temperature (Trish-wound Skin No Abnormality Appearance) (Pt Warm) -Tenderness on Palpation (Trish-wound No Skin Appearance) -Ulcer Cleansing Wound Cleanser -Foul Odor after Cleansing No #4 Left Heel Blister -Combined with other wound No -Current Size (cm) - Length 0.1 -Current Size (cm) - Width 0.1 -Current Size (cm) - Depth 0.1 -Total Square Cm 0.01 -Photo Taken Yes -Tunneling No -Undermining/Tunneling No -Circular Undermining No -Exudate Amt Medium -Exudate Type Serosanguineous -Wound Margin Distinct, Outline Attached -Granulation Amt Medium (34-66%) -Granulation Quality Solvang -Slough/Fibrin Yes -Necrosis Amt Medium (34-66%) -Necrotic Tissue Type Adherent Slough -Structure Exposed N/A -Texture (Trish-wound Skin Appearance) Assessed -Moisture (Trish-wound Skin Appearance) Assessed -Color (Trish-wound Skin Appearance) Assessed -Temperature (Trish-wound Skin No Abnormality Appearance) (Pt Warm) -Tenderness on Palpation (Trish-wound No Skin Appearance) -Ulcer Cleansing Wound Cleanser -Foul Odor after Cleansing No 3. R ischium -Combined with other wound No No No -Current Size (cm) - Length 0.1 7.4 0.1 -Current Size (cm) - Width 0.1 5.2 0.1 -Current Size (cm) - Depth 0.1 0.1 0.1 -Total Square Cm 0.01 38.48 0.01 -Photo Taken Yes Yes -Tunneling No No No -Undermining/Tunneling No No No -Circular Undermining No No No -Exudate Amt Large Large Medium -Exudate Type Serosanguineous Serosanguineous Serosanguineous -Wound Margin Thickened Thickened & Thickened & Rolled Under Rolled Under -Granulation Amt Large (67-100%) Medium (34-66%) Medium (34-66%) -Granulation Quality Solvang Solvang Solvang -Slough/Fibrin Yes Yes Yes -Necrosis Amt Small (1-33%) Medium (34-66%) Small (1-33%) -Necrotic Tissue Type Adherent Slough Adherent Slough Adherent Slough -Structure Exposed N/A N/A N/A -Texture (Trish-wound Skin Appearance) Friable Assessed, Assessed, Friable Excoriation, Scarring -Moisture (Trish-wound Skin Appearance) Assessed Assessed Assessed -Color (Trish-wound Skin Appearance) Assessed Assessed Assessed -Temperature (Trish-wound Skin No Abnormality No Abnormality No Abnormality Appearance) (Pt Warm) (Pt Warm) (Pt Warm) -Tenderness on Palpation (Trish-wound No No No Skin Appearance) -Ulcer Cleansing Wound Cleanser Wound Cleanser Wound Cleanser -Foul Odor after Cleansing No No No -Anesthetic Used 4% Lidocaine 4% Lidocaine Solution Solution 2. L ischium -Combined with other wound No No No -Current Size (cm) - Length 0.1 8.5 0.1 -Current Size (cm) - Width 0.1 3 0.1 -Current Size (cm) - Depth 0.1 0.2 0.1 -Total Square Cm 0.01 25.5 0.01 -Photo Taken Yes Yes -Tunneling No No No -Undermining/Tunneling No No No -Circular Undermining No No No -Exudate Amt Large Medium -Exudate Type Serosanguineous Serosanguineous -Wound Margin Thickened & Thickened & Rolled Under Rolled Under -Granulation Amt Medium (34-66%) Medium (34-66%) -Granulation Quality Solvang Solvang Solvang -Slough/Fibrin Yes Yes Yes -Necrosis Amt Medium (34-66%) Medium (34-66%) Medium (34-66%) -Necrotic Tissue Type Adherent Slough Adherent Slough Adherent Slough -Structure Exposed N/A N/A N/A -Texture (Trish-wound Skin Appearance) Assessed, Assessed, Assessed, Fluctuance, Excoriation Excoriation, Scarring Scarring -Moisture (Trish-wound Skin Appearance) Weeping Assessed Assessed -Color (Trish-wound Skin Appearance) Assessed Assessed Assessed -Temperature (Trish-wound Skin No Abnormality No Abnormality No Abnormality Appearance) (Pt Warm) (Pt Warm) (Pt Warm) -Tenderness on Palpation (Trish-wound No No No Skin Appearance) -Ulcer Cleansing Wound Cleanser Wound Cleanser Wound Cleanser -Foul Odor after Cleansing No No No -Anesthetic Used 4% Lidocaine 4% Lidocaine Solution Solution -Wound Comment(s) Dr Prcie had increase nc O2 to 4l and pulse ox is 93% *1. coccyx -Combined with other wound No No -Current Size (cm) - Length 0.1 17 0.1 -Current Size (cm) - Width 0.1 9 0.1 -Current Size (cm) - Depth 0.1 0.3 0.1 -Total Square Cm 0.01 153 0.01 -Photo Taken Yes Yes -Tunneling No No No -Undermining/Tunneling No No No -Circular Undermining No No No -Exudate Amt Large Large Large -Exudate Type Serosanguineous Serosanguineous Serosanguineous -Wound Margin Thickened Thickened & Thickened & Rolled Under Rolled Under -Granulation Amt Medium (34-66%) Medium (34-66%) Medium (34-66%) -Granulation Quality Solvang Solvang Solvang -Slough/Fibrin Yes Yes Yes -Necrosis Amt Medium (34-66%) Medium (34-66%) Medium (34-66%) -Necrotic Tissue Type Adherent Slough Adherent Slough Adherent Slough -Structure Exposed N/A N/A N/A -Texture (Trish-wound Skin Appearance) Assessed, Excoriation, Assessed, Friable Friable Scarring -Moisture (Trish-wound Skin Appearance) Assessed Assessed Assessed -Color (Trish-wound Skin Appearance) Assessed, Assessed Assessed Erythema -Temperature (Trish-wound Skin No Abnormality No Abnormality No Abnormality Appearance) (Pt Warm) (Pt Warm) (Pt Warm) -Tenderness on Palpation (Trish-wound No No No Skin Appearance) -Ulcer Cleansing Wound Cleanser Wound Cleanser Wound Cleanser -Foul Odor after Cleansing No No -Anesthetic Used 4% Lidocaine 4% Lidocaine Solution Solution -Wound Comment(s) L medial heel right lateral and R lateral foot has intact foot have large fluid filled blister and blister, R heel both have skin has blister intact that was drained last week by Dr Thayer and skin intact WC - Nurse 2 - General Ulcer CM Notes Start: 10/19/24 09:04 Freq: Status: Active Protocol: Activity Type Activity Date Activity User E-sign Co-sign Detail Recorded Client Recorded Date Recorded By Document 10/19/24 09:46 GM [id number] 10/19/24 10:11 GM Document 10/26/24 09:48 GM [id number] 10/26/24 10:05 GM Edit Result 10/26/24 09:48 GM (1) [id number] 10/31/24 07:38 GM Document 11/09/24 09:58 GM [id number] 11/09/24 10:25 GM (1) 2. L ischium - Correct Procedure Yes => No - Procedure Performed Yes => No - Type of Procedure Debridement => - Clinical Debridement Subcutaneous => - Tissue Removed Subcutaneous => - Ulcer Cleansing Rinsed/Irrigated => with Saline => - Bleeding Controlled with Pressure => NA - Treatment Response Procedure => Tolerated Well => - Debridement - Subq, 1st 20sq cm Yes => 10/19/24 10/26/24 11/09/24 09:46 09:48 09:58 Wound Center Nurse 2 #5 Right Heel Blister -Time 09:52 09:58 -Correct Patient Yes Yes -Correct Side, Site, Position Yes Yes -Correct Procedure Yes No -Procedure Performed Yes No -Type of Procedure Debridement -Clinical Debridement Epidermis / Dermis -Tissue Removed Epidermis, Dermis -Post Debridement (cm) - Length 5.0 -Post Debridement (cm) - Width 3.4 -Post Debridement (cm) - Depth 0.1 -Total Square (Post) (cm) 17.00 -Area of Debridement (cm) - Length 5.0 -Area of Debridement (cm) - Width 3.4 -Total Square (Area) (cm) 17.00 -Tunneling No No -Undermining/Tunneling No No -Circular Undermining No No -Wound/Ulcer Outcome Not Healed Healed- Epithelialized -Ulcer Cleansing Rinsed/ Irrigated with Saline -Foul Odor after Cleansing No No -Bioengineered Tissue No No -Bleeding Controlled with Pressure NA -Treatment Response Procedure Tolerated Well -Offloading No No -Debridement - Open, 1st 20sq cm Yes -Debridement, Open, ea addt'l 20sq cm 1 or part thereof -Debridement - Subq, 1st 20sq cm No #4 Left Heel Blister -Time 09:50 10:00 -Correct Patient Yes Yes -Correct Side, Site, Position Yes Yes -Correct Procedure Yes No -Procedure Performed Yes No -Type of Procedure Debridement -Clinical Debridement Epidermis / Dermis -Tissue Removed Epidermis, Dermis -Post Debridement (cm) - Length 5.3 -Post Debridement (cm) - Width 4.0 -Post Debridement (cm) - Depth 0.1 -Total Square (Post) (cm) 21.20 -Area of Debridement (cm) - Length 5.3 -Area of Debridement (cm) - Width 4.0 -Total Square (Area) (cm) 21.20 -Tunneling No No -Undermining/Tunneling No No -Circular Undermining No No -Wound/Ulcer Outcome Not Healed Healed- Epithelialized -Ulcer Cleansing Rinsed/ Not Cleansed Irrigated with Saline -Foul Odor after Cleansing No No -Bioengineered Tissue No No -Bleeding Controlled with Pressure NA -Treatment Response Procedure Tolerated Well -Offloading No No -Debridement - Open, 1st 20sq cm No 3. R ischium -Time 09:51 09:48 10:06 -Correct Patient Yes Yes Yes -Correct Side, Site, Position Yes Yes Yes -Correct Procedure Yes Yes Yes -Procedure Performed Yes Yes Yes -Type of Procedure Debridement Debridement Debridement -Clinical Debridement Muscle / Fascia Muscle / Fascia Muscle / Fascia -Tissue Removed Muscle Muscle Muscle -Post Debridement (cm) - Length 11.0 7.5 15.0 -Post Debridement (cm) - Width 5.5 6.0 6.5 -Post Debridement (cm) - Depth 0.1 0.1 0.1 -Total Square (Post) (cm) 60.50 45.00 97.50 -Area of Debridement (cm) - Length 11.0 7.5 15.0 -Area of Debridement (cm) - Width 5.5 6.0 6.5 -Total Square (Area) (cm) 60.50 45.00 97.50 -Tunneling No No No -Undermining/Tunneling No No No -Circular Undermining No No No -Wound/Ulcer Outcome Not Healed Not Healed Not Healed -Ulcer Cleansing Rinsed/ Rinsed/ Rinsed/ Irrigated with Irrigated with Irrigated with Saline Saline Saline -Foul Odor after Cleansing No No No -Bioengineered Tissue No No No -Bleeding Controlled with Pressure Pressure Pressure -Treatment Response Procedure Procedure Procedure Tolerated Well Tolerated Well Tolerated Well -Offloading No No No -Debridement - Muscle / Fascia, 1st No No No 20sq cm 2. L ischium -Time 09:51 09:49 10:09 -Correct Patient Yes Yes Yes -Correct Side, Site, Position Yes Yes Yes -Correct Procedure No No No -Procedure Performed No No No -Tunneling No -Undermining/Tunneling No -Circular Undermining No -Wound/Ulcer Outcome Not Healed Not Healed Not Healed -Ulcer Cleansing Rinsed/ Irrigated with Saline -Foul Odor after Cleansing No No No -Bioengineered Tissue No No No -Bleeding Controlled with Pressure NA NA -Offloading No No -Debridement - Subq, 1st 20sq cm No *1. coccyx -Time 09:52 09:49 10:10 -Correct Patient Yes Yes Yes -Correct Side, Site, Position Yes Yes Yes -Correct Procedure Yes Yes Yes -Procedure Performed Yes Yes Yes -Type of Procedure Debridement Debridement Debridement -Clinical Debridement Muscle / Fascia Muscle / Fascia Muscle / Fascia -Tissue Removed Muscle Muscle Muscle -Post Debridement (cm) - Length 11.5 9.5 15.0 -Post Debridement (cm) - Width 15.0 16.2 14.5 -Post Debridement (cm) - Depth 0.1 0.1 0.1 -Total Square (Post) (cm) 172.50 153.90 217.50 -Area of Debridement (cm) - Length 11.5 9.5 15 -Area of Debridement (cm) - Width 15.0 16.2 14.5 -Total Square (Area) (cm) 172.50 153.90 217.5 -Tunneling No No No -Undermining/Tunneling No No No -Circular Undermining No No No -Wound/Ulcer Outcome Not Healed Not Healed Not Healed -Ulcer Cleansing Rinsed/ Rinsed/ Rinsed/ Irrigated with Irrigated with Irrigated with Saline Saline Saline -Foul Odor after Cleansing No No -Bioengineered Tissue No No No -Bleeding Controlled with Pressure Pressure Pressure -Treatment Response Procedure Procedure Procedure Tolerated Well Tolerated Well Tolerated Well -Offloading No No -Debridement - Muscle / Fascia, 1st Yes Yes Yes 20sq cm -Debridement, Muscle/Fascia, ea addt'l 11 9 15 20sq cm or part thereof Pain Scale: 0-10 Numeric Is Patient Pain Free? Yes Yes Yes WC - Nurse 3 - General Ulcer D/C NN Start: 10/19/24 09:04 Freq: Status: Active Protocol: Activity Type Activity Date Activity User E-sign Co-sign Detail Recorded Client Recorded Date Recorded By Document 10/19/24 10:39 RB [id number] 10/19/24 10:44 RB Document 10/26/24 10:12 KW [id number] 10/26/24 10:14 KW Document 11/09/24 10:54 RB [id number] 11/09/24 10:55 RB 10/19/24 10/26/24 11/09/24 10:39 10:12 10:54 Wound Care Center Nurse 3 #5 Right Heel Blister -Primary Dressing Applied NonAdherent Contact Layer -Other Dressing ABD -Primary Dressing Covered/Secured with Dry Gauze & Dry Gauze & Roll Gauze, Roll Gauze, Secured with Secured with Tape Tape #4 Left Heel Blister -Other Dressing adaptic ABD -Primary Dressing Covered/Secured with Dry Gauze & Dry Gauze & Roll Gauze, Roll Gauze, Secured with Secured with Tape Tape 3. R ischium -Ulcer Cleansing Rinsed/ dakins Irrigated with Saline -Other Dressing dakins dakins gauze ABD moistened gauze with adaptic / ABD and fluffed gauze -Primary Dressing Covered/Secured with Secured with Dry Gauze, Dry Gauze, Tape Secured with Secured with Tape Tape 2. L ischium -Ulcer Cleansing Rinsed/ Irrigated with Saline -Primary Dressing Applied Optilok 5x5 1/2 -Other Dressing dakins dakins with moistened gauze adaptic and / abd fluffed gauze -Primary Dressing Covered/Secured with Secured with Dry Gauze, Dry Gauze, Tape Secured with Secured with Tape Tape -Optilok 5x5 1/2 1 *1. coccyx -Other Dressing dakins dakins and ABD moistened gauze adaptic fluff / abd gauze -Primary Dressing Covered/Secured with Secured with Dry Gauze, Secured with Tape Secured with Tape Tape -Wound Comment(s) adaptic to L heel ABD, adaptic to R lateral foot ABD Treatment Response Procedure Procedure Tolerated Well Tolerated Well Pain Scale: 0-10 Numeric Is Patient Pain Free? No Yes Yes WC - Visit Discharge Discharge Condition Stable Stable Stable Ambulatory Status Wheelchair Wheelchair Wheelchair Transportation [facility] Medication Reconcilliation completed & No No No provided to patient/care provider Clinical Summary of Care Provided Yes Yes Yes Additional Wound Wound debrided: right ischium Laterality: Right Wound Grade/Stage: Stage III Type of Debridement: Excisional debridement Anesthesia Used: 4% Lidocaine Solution Depth: Down to and including healthy tissue and in the subcutaneous layer Percentage of wound debrided: 100 Instrument Used: 7mm curette and - (scissors) Tissue Removed: Yellow slough, devitalized tissue Severity: Fat Layer Exposed Amount of bleeding with debridement: Moderate Bleeding Controlled with: Compression and gauze Patient tolerated procedure: Patient tolerated procedure well Operative Diagnosis: 3 simple interrupted sutures were placed to control bleeding center area Additional Wound Wound debrided: coccyx Laterality: Not Applicable Wound Grade/Stage: Stage IV Type of Debridement: Excisional debridement Anesthesia Used: 4% Lidocaine Solution Depth: Down to and including healthy tissue, in the subcutaneous layer and to muscle Percentage of wound debrided: 100 Instrument Used: 7mm curette Tissue Removed: Yellow slough, devitalized tissue Severity: Necrosis of Muscle Amount of bleeding with debridement: Mild Bleeding Controlled with: Compression and gauze Patient tolerated procedure: Patient tolerated procedure well Assessment/Plan Assessment/Plan (1) Chronic pain: CODE(S): G89.29 - Other chronic pain QUALIFIERS: Chronic pain type: chronic pain syndrome Qualified Code(s): G89.4 - Chronic pain syndrome (2) Hypoxia: CODE(S): R09.02 - Hypoxemia (3) History of paraplegia: CODE(S): Z86.69 - Personal history of other diseases of the nervous systemand sense organs (4) Chronic indwelling Bartlett catheter: CODE(S): Z97.8 - Presence of other specified devices (5) Type 2 diabetes mellitus: CODE(S): E11.9 - Type 2 diabetes mellitus without complications QUALIFIERS: Diabetes mellitus complication detail: with polyneuropathy Diabetes mellitus complication status: with neurologic complications Diabetes mellitus intermediate card tender insulin use: without intermediate card tender use Qualified Code(s): E11.42 - Type 2 diabetes mellitus with diabetic polyneuropathy (6) Chronic anticoagulation: CODE(S): Z79.01 - intermediate card tender (current) use of anticoagulants (7) History of deep vein thrombosis: CODE(S): Z86.718 - Personal history of other venous thrombosis and embolism (8) Decubitus ulcer of sacral region, stage 4: CODE(S): L89.154 - Pressure ulcer of sacral region, stage 4 (9) Decubitus ulcer of left perineal ischial region, stage 2: CODE(S): L89.322 - Pressure ulcer of left buttock, stage 2 (10) Hx of spinal surgery: CODE(S): Z98.890 - Other specified postprocedural states (11) Colostomy status: CODE(S): Z93.3 - Colostomy status (12) HTN (hypertension): CODE(S): I10 - Essential (primary) hypertension QUALIFIERS: Hypertension type: primary hypertension Qualified Code(s): I10 - Essential (primary) hypertension (13) BATOOL treated with BiPAP: CODE(S): G47.33 - Obstructive sleep apnea (adult) (pediatric) (14) Lymphedema: CODE(S): I89.0 - Lymphedema, not elsewhere classified (15) Decubitus ulcer of right ischium, stage 3: CODE(S): L89.313 - Pressure ulcer of right buttock, stage 3 PLAN: Plan Debridement performed today in clinic as annotated above. At home wound-care instructions: The patient's ulcers will be washed with antibacterial soap and water and then will use Adaptic and Dakins wet to dry to wound bed and cover with gauze and superabsorber for heavy drainage twice daily. Keep dressing clean and dry. Left heel and right lateral foot will be covered with adaptic and ABD and changed daily. Off-loading: The patient was instructed to avoid pressure and friction on the affected areas. Reposition every 2 hours at minimum. Avoid prolonged standing and/or dangling of legs. When seated, feet should be elevated at chest level. Continue air mattress. Order has been written for alternating pressure air mattress to assist in offloading pressure to his ulcers. He now has alternating pressure air mattress to assist in offloading. Diet: Patient encouraged to increase protein intake while taking caution to avoid high carbohydrate and/or sugar intake. He is getting Wiliam protein supplement at [facility]. Labs/cultures/imaging: Will obtain previous imaging results. Most recent A1C 7.9% on 07/23/24. Wound culture showed multiple bacteria and he has completed on Flagyl and Cefdinir. Augmentin prescribed until results of wound culture are back. Follow-up: Return in 2 weeks for wound care follow up due to the 16 of November holiday. Return sooner or report to the emergency room should symptoms worsen, or new symptoms arise. Note: [employer] speech recognition overhead worker software was used to create portions of this document. Sound-alike and misspelled words, as well as other overhead worker errors may be contained in the documentation. 11/09/24 1419 <Electronically signed by Peter Thayer DO> Cosigner Signature (if applicable): CC: ~ Signed [facility] Work Phone: [phone] Discharge summary Author Le Wiggins [facility] Note Date/Time November 01, 2024 2:47 pm [facility] Medical Records Department [address] [place] [address] Discharge Summary 11/01/24 1446 MR#: [id number] Acct: [id number] Name: MELISSA ELIAS Rep #:[id number] : 1965 59 From: Le Wiggins MD PCP: Dr. Rocio Bartlett MD Status:A DM IN Location: [facility] [id number] Providers Date of Admission: 10/29/24 Date of Discharge: 11/01/24 Primary Care Physician: Dr. Rocio Bartlett MD Consultations 10/29/24 16:28 Consult: Box Feeder / Pulmonary Medicine Routine Consulting Provider: Intensivists/Pulmonary Med Reason for Consult: acute on chronic resp failure, worsening RLL pna vs mucusplugging EMERGENT Consult: No Notified: Yes Date Notified: 10/29/24 Time Notified: 16:39 Method of Notification: Answering Service 10/30/24 05:33 Consult: Onc/Wound/surgical processor Routine Comment: Reason for Consult:: coccyx wound 11/01/24 08:54 Consult: Infectious Disease Routine Consulting Provider: Minda Cm Reason for Consult: polymicrobial UTI w/ resistance pattern likely d/c, ?abx recs, also PNA EMERGENT Consult: No Notified: Yes Date Notified: 11/01/24 Time Notified: 08:54 Method of Notification: Text Reason For Visit: ACUTE ON CHRONIC RESP FAILURE DUE TO PNEUMONIA Diagnosis Discharge Diagnosis (1) Acute on chronic respiratory failure with hypoxia and hypercapnia: Status: Chronic Code(s): J96.21 - Acute and chronic respiratory failure with hypoxia; J96.22 - Acute and chronic respiratory failure with hypercapnia Plan # Acute on chronic combined respiratory failure secondary to pneumonia and possible suboptimal use of BiPAP #BATOOL #Abnormal UA w/ enteroccoccus and pseudomonas # Paraplegia with chronic pain syndrome #Morbid obesity #Type 2 diabetes mellitus #pressure injuries -to right buttocks-stage IV, sacrum, stage II right lateral foot, stage II left heel #GERD Medications at Discharge Home Medications fluticasone propionate 50 mcg/actuation nasal spray,suspension (Flonase Allergy Relief) 1 spray intranasal DAILY shortness of breath 03/03/20 apixaban 5 mg tablet (Eliquis) 5 mg PO BID 07/29/23 methocarbamol 500 mg tablet 1,000 mg PO BID PRN cramps 07/29/23 polyethylene glycol 3350 17 gram/dose oral powder (ClearLax) 17 g PO BID constipation 07/29/23 pantoprazole 40 mg tablet,delayed release 40 mg PO DAILY stomach 08/31/23 aluminum-mag hydroxide-simethicone 400 mg-400 mg-40 mg/5 mL oral susp (Mag-Al Plus Extra Strength) 30 ml PO Q6H PRN PRN Gastric Burning #0 mL 09/13/23 amlodipine 10 mg tablet 10 mg PO DAILY #0 tabs 09/13/23 carvedilol 12.5 mg tablet 12.5 mg PO BIDCM #0 tabs 09/13/23 diphenhydramine HCl 25 mg capsule (Banophen) 25 mg PO TID PRN PRN Itching #0 caps 09/13/23 peg [id number] 1 %-0.2 %-0.2 % eye drops (Artificial Tears ([id number])) 1 drp EACH EYE BID dry eyes #0 mL 09/13/23 polysaccharide iron complex 150 mg iron capsule (Ferrex) 150 mg PO .QOD supplement 10/15/23 sennosides 8.6 mg-docusate sodium 50 mg tablet (Stool Softener-Stimulant Laxative) 2 tab PO BID Constipation 10/15/23 insulin lispro 100 unit/mL subcutaneous pen (Humalog KwikPen (U-100) Insulin) See Protocol subcut ACHS blood sugars 10/23/23 loratadine 10 mg tablet (Allerclear) 10 mg PO DAILY allergies 10/23/23 albuterol sulfate 2.5 mg/3 mL (0.083 %) solution for nebulization 2.5 mg inhalation BID wheezing 10/25/23 arginine 7 gram-glutamine 7 gram-calcium HMB 1.5 gram oral powder pack (Wiliam) 1ea PO BID wound healing 03/22/24 amino acids-protein hydrolysate 15 gram-100 kcal/30 mL oral liquid (Pro-Stat Sugar Free) 30 ml PO BID 03/26/24 ascorbic acid (vitamin C) 500 mg tablet 500 mg PO QODAY supplement 03/26/24 chlorhexidine gluconate 4 % topical liquid (Hibiclens) 1 applic topical .twice aweek unknown 03/26/24 dextrose 40 % oral gel (Glucose Gel) 10 g PO Q15M PRN hypoglycemia 03/26/24 naloxone 0.4 mg/mL injection syringe 0.4 mg IM Q5M PRN opioid reversal 03/26/24 ondansetron 4 mg disintegrating tablet 4 mg PO Q4H PRN nausea 03/26/24 sodium chloride 0.65 % nasal mist 2 spray intranasal Q2H PRN dry nasal passages 03/26/24 dulaglutide 3 mg/0.5 mL subcutaneous pen injector (Trulicity) 3 mg subcut QWEEK diabetes 07/18/24 duloxetine 30 mg capsule,delayed release 60 mg PO QDAY mood 07/18/24 insulin glargine 100 unit/mL subcutaneous solution (Lantus U-100 Insulin) 14 unit subcut DAILY diabetes mellitus type 2 07/18/24 insulin lispro 100 unit/mL subcutaneous solution 12 unit subcut .ac diabetes 07/18/24 metformin 500 mg tablet 1,000 mg PO BID diabetes 07/18/24 fenofibrate 54 mg tablet 54 mg PO QHS cholesterol 08/17/24 nystatin 100,000 unit/gram topical powder 1 applic topical TID rednes 08/17/24 morphine 30 mg capsule,extended release pellets ([place]) 30 mg PO Q12H pain 30 days #60 caps 10/10/24 acetaminophen 325 mg capsule 650 mg PO Q6H pain 10/12/24 acetic acid 0.25 % irrigation solution 30 ml irrigation BID suprapubic cath 10/12/24 artificial tears([id number]) 0.1 %-0.3 %-0.2 % eye drops (GenTeal Tears Moderate) 1 drp EACH EYE BID PRN dry eyes 10/12/24 glipizide 2.5 mg tablet, extended release 24 hr 2.5 mg PO DAILY diabetes 10/12/24 simethicone 80 mg chewable tablet (Gas Relief (simethicone)) 80 mg PO .ACTID PRNgas 10/12/24 sodium hypochlorite 0.25 % solution (Dakin's Solution) 1 applic topical BID wound 10/12/24 furosemide 20 mg tablet 40 mg (2 x 20 mg) PO BID #30 tabs 10/16/24 guaifenesin 600 mg tablet, extended release 12 hr (Mucinex) 600 mg PO BID 7 days#0 tabs 11/01/24 levofloxacin 750 mg tablet 750 mg PO DAILY 4 days #0 tabs 11/01/24 oxycodone 10 mg tablet 5 mg (1/2 x 10 mg) PO Q6H PRN pain 3 days #6 tabs 11/01/24 Hospital Course Summary of Care Provided Minutes Spent on Discharge: 32 Hospital Course: # Acute on chronic combined respiratory failure secondary to pneumonia and possible suboptimal use of BiPAP #BATOOL #Abnormal UA w/ enteroccoccus and pseudomonas # Paraplegia with chronic pain syndrome #Morbid obesity #Type 2 diabetes mellitus #pressure injuries -to right buttocks-stage IV, sacrum, stage II right lateral foot, stage II left heel #GERD 59-year-old male with history as above presented [facility] ED 10/29/2024 with worsening hypoxia. Had recently been hospitalized here 10/12 through 10/16 for acute hypoxic respiratory failure secondary to human metapneumovirus with concern for superimposed bacterial pneumonia and acute on chronic heart failure. He was ultimately discharged back to SNF and oxygen requirements improved however he came back to the ED with nursing hypoxia and was placed on high flow. Imaging suggestive of pneumonia patient started on IV antibiotics and pulmonology consulted, patient was slowly weaned down and improved back to 5 L. There was question of a problem with the BiPAP but nursing facility confirmed that it is working and it was recommended strict compliance with this. Of note patient had UA when he came in that incidentally had somewhat low colony counts of Pseudomonas but 80-100,000 Enterococcus with various resistance patterns. ID consulted for assistance, initially vancomycin discontinued and patient continued on Zosyn however given he is stable from respiratory standpoint and pulmonology okay with discharge did contact ID physician who recommended Levaquin as that will cover pulmonary and urinary source and recommended 4 more days. On day of discharge patient overall feelingmuch better with significantly improved shortness of breath, resting comfortably. No new or acute complaints. Had a little bit of nausea earlier but resolved with Zofran and was given MiraLAX as he felt he is beginning a to get constipated but is now feeling well. Patient agreeable discharge with no new acute complaints. Discharge instructions as follows: DISCHARGE INSTRUCTIONS PLEASE READ *Please take this with you to your next doctors appointment* -You will be discharged on additional 4 days of Levaquin to cover pneumonia andpossible urinary tract infection - It is important that you use your BiPAP nightly and if there are any other concerns of the BiPAP please follow-up with your physician who previously coordinated this -Per speech therapy recommendations he may benefit from following up with GI ney evaluation for reflux due to risk of reflux aspiration, it is recommended to follow-up with GI in an outpatient basis once acute illness has resolved -Please continue to follow with the wound care center on discharge -Please call your primary care provider's office upon discharge to schedule a hospital follow up within 1 week. -For any concerning signs or symptoms please call 911 or proceed to the nearest emergency department Physical Exam Narrative General: Alert, oriented, no apparent distress HEENT: Atraumatic, normocephalic Eyes: Anicteric, normal conjunctiva, extraocular movements grossly intact Neck: Supple Respiratory: Normal respiratory effort, clear to auscultation bilaterally Cardiovascular: Regular rate and rhythm GI: Soft, nontender, nondistended Extremities: No significant pitting Musculoskeletal: Patient paraplegic at baseline, moves upper extremities Neuro: Patient paraplegic at baseline Skin: No rashes appreciated Psych: Cooperative Weight / BMI Weight Weight: 137.6 kg Body Mass Index (BMI) 47.5 ABG / Lab / Microbiology Data 11/01/24 03:05 11/01/24 03:05 Laboratory: Laboratory Results - last 24 hr 10/31/24 16:36: POC Glucose 171 H 10/31/24 21:43: POC Glucose 169 H 11/01/24 03:05: WBC 7.6, RBC 4.04 L, Hgb 9.1 L, Hct 32.8 L, MCV 81.2, MCH 22.5 L, MCHC 27.7 L, RDW Std Deviation 54.4 H, RDW Coeff of Mary 18.9 H, Plt Count 241,MPV 9.4, Immature Gran % (Auto) 0.400, Neut % (Auto) 64.3, Lymph % (Auto) 19.0, Hayes % (Auto) 11.9 H, Eos % (Auto) 4.0, Baso % (Auto) 0.4, Absolute Neuts (auto)4.9, Absolute Lymphs (auto) 1.44, Nucleated RBC % 0, Sodium 136, Potassium 3.8, Chloride 92 L, Carbon Dioxide 34.9 H, Anion Gap 9, BUN 21 H, Creatinine 0.71, Estim Creat Clear Calc 153.76, Est GFR (MDRD) Non-Af 107, BUN/Creatinine Ratio 29.2 H, Glucose 152 H, Calcium 8.7, Vancomycin Trough 19.4 H 11/01/24 08:18: POC Glucose 200 H 11/01/24 11:54: POC Glucose 209 H Microbiology: Microbiology 10/29/24 20:25 Sputum, Expectorated/Coughed Gram Stain - Final 10/29/24 20:25 Sputum, Expectorated/Coughed Respiratory Culture - Final Mixed normal respiratory beverly. No Streptococcus pneumoniae, beta-hemolytic Streptococcus or Staphylococcus aureus isolated. 10/29/24 11:20 Urine, Clean Catch Urine Culture - Final Pseudomonas aeruginosa Enterococcus faecalis 10/29/24 11:09 Blood Culture (Wb) - Left Hand Blood Culture - Preliminary No growth in 48 hours. 10/29/24 10:33 Blood Culture (Wb) - Left Hand Blood Culture - Preliminary No growth in 48 hours. 10/29/24 11:20 Urine Catheter - Bartlett Streptococcus pneumoniae Antigen (M - Final 10/29/24 11:20 Urine Catheter - Bartlett Legionella Antigen - Final 10/29/24 15:23 Mucosa - Nasopharyngeal Respiratory Panel (PCR) - Final 10/29/24 11:04 Mucosa - Nose SARS-CoV-2, Influenza & RSV (PCR) - Final D/C Instructions DC O2, CPAP, BIPAP Needs Home O2 Discharge instructions: Yes Type of respiratory needs?: Oxygen Oxygen frequency: Continuous Continuous oxygen liters per minute: 5 and BiPAP BiPAP instructions: Continue previous settings DC home with Oxygen: Yes Home O2 MD Review: I have reviewed the oxygen testing, and the patient qualifies for home oxygen equipment and portability. The patient is mobile in the home and the community. Meaningful Use Info Meaningful Use Meaningful Use Diagnoses (Choose all that apply): None applicable Ischemic Stroke Statin Dosing Therapy Reference: STATIN DOSE THERAPY REFERENCE: * Patients > 75 years receive moderate or high dose statin therapy. * Patients 75 years or YOUNGER should receive HIGH intensity statin dose unless contraindicated. You will be required to document reason for non-treatment if statin daily dose does not meet guidelines. HIGH DOSE STATIN THERAPY DAILY Atorvastatin > than or = to 40 mg Rosuvastatin > than or = to 20 mg Amlodipine + Atorvastatin > than or = to 2.5/40 mg Ezetimibe + Simvastatin 10/80 mg Simvastatin 80mg Discharge Plan Admission Admit Date/Time: 10/29/24 14:30 Primary Reason for Your Visit: Worsening hypoxia, pneumonia Attending Provider: Le Wiggins Primary Care Provider: Rocio Bartlett Consulting Providers: Bryant Day; Josef Storey; Cristi Gann; Tez Tuttle; Palmira Campo; Elio Soto; Titus Fletcher; Alysha Cameron; Brien Martinez; Jean Mejía; Paresh Mendoza; Sully Rebolledo; Dimitris Chacko; Radha Still; Bunny Hughes; Juaquin York; Americo Bryan; Lambert,Ahsan; Doni Gonzalez; Dee Ellsworth; Manuelito Porter; Georgi Sanz; Alex Martinez; Percy Price; Maurizio Parra; Minda Cm Instructions Patient Instructions: Using a BPAP Additional Instructions / Restrictions: DISCHARGE INSTRUCTIONS PLEASE READ *Please take this with you to your next doctors appointment* -You will be discharged on additional 4 days of Levaquin to cover pneumonia andpossible urinary tract infection - It is important that you use your BiPAP nightly and if there are any other concerns of the BiPAP please follow-up with your physician who previously coordinated this -Per speech therapy recommendations he may benefit from following up with GI ney evaluation for reflux due to risk of reflux aspiration, it is recommended to follow-up with GI in an outpatient basis once acute illness has resolved -Please continue to follow with the wound care center on discharge -Please call your primary care provider's office upon discharge to schedule a hospital follow up within 1 week. -For any concerning signs or symptoms please call 911 or proceed to the nearest emergency department Discharge Orders/Prescriptions Prescriptions: New levofloxacin 750 mg Tablet 750 mg PO DAILY 4 Days Qty: 0 0RF guaifenesin [Mucinex] 600 mg Tablet Extended Release 12hr 600 mg PO BID 7 Days Qty: 0 0RF Continued fluticasone propionate [Flonase Allergy Relief] 50 mcg/actuation spray,suspension 1 spray INTRANASAL DAILY Patient Comments: takes in once in awhile Rx Instructions: administer into each nostril Wiliam 7-7-1.5 gram powder in packet 1 ea PO BID naloxone 0.4 mg/mL syringe 0.4 mg IM Q5M PRN (Reason: opioid reversal) Rx Instructions: NTExceed 10 mg total dose/episode ondansetron 4 mg tablet,disintegrating 4 mg PO Q4H PRN (Reason: nausea) metformin 500 mg tablet 1,000 mg PO BID duloxetine 30 mg capsule,delayed release(/EC) 60 mg PO QDAY Pro-Stat Sugar Free 15-100 gram-kcal/30 mL liquid 30 ml PO BID dextrose [Glucose Gel] 40 % gel 10 g PO Q15M PRN (Reason: hypoglycemia) Rx Instructions: until symptoms of low blood sugar are controlled chlorhexidine gluconate [Hibiclens] 4 % liquid 1 applic topical .twice a week Rx Instructions: tuesday and sodium chloride 0.65 % mist 2 spray intranasal Q2H PRN (Reason: dry nasal passages) ascorbic acid (vitamin C) 500 mg tablet 500 mg PO QODAY Trulicity 3 mg/0.5 mL pen injector 3 mg subcut QWEEK Rx Instructions: once a week on Mondays pantoprazole 40 mg tablet,delayed release (DR/EC) 40 mg PO DAILY alum-mag hydroxide-simeth [Mag-Al Plus Extra Strength] 400-400-40 mg/5 mL Suspension 30 ml PO Q6H PRN PRN (Reason: Gastric Burning) Qty: 0 0RF Artificial Tears(hc-dhuf-cano) 1-0.2-0.2 % Drops 1 drp EACH EYE BID Qty: 0 0RF carvedilol 12.5 mg Tablet 12.5 mg PO BIDCM Qty: 0 0RF amlodipine 10 mg Tablet 10 mg PO DAILY Qty: 0 0RF diphenhydramine HCl [Banophen] 25 mg Capsule 25 mg PO TID PRN PRN (Reason: Itching) Qty: 0 0RF polysaccharide iron complex [Ferrex 150] 150 mg iron Capsule 150 mg PO .QOD sennosides-docusate sodium [Stool Softener-Stimulant Laxat] 8.6-50 mg Tablet 2 tab PO BID albuterol sulfate 2.5 mg /3 mL (0.083 %) solution for nebulization 2.5 mg inhalation BID Rx Instructions: And q4hr prn methocarbamol 500 mg tablet 1,000 mg PO BID PRN (Reason: cramps) Eliquis 5 mg tablet 5 mg PO BID polyethylene glycol 3350 [ClearLax] 17 gram/dose powder 17 g PO BID insulin glargine [Lantus U-100 Insulin] 100 unit/mL solution 14 unit subcut DAILY insulin lispro 100 unit/mL solution 12 unit subcut .ac loratadine [Allerclear] 10 mg tablet 10 mg PO DAILY Rx Instructions: am insulin lispro [Humalog KwikPen Insulin] 100 unit/mL Insulin Pen See Protocol subcut [facility] Protocol: 6. Sliding Scale Insulin Custom Condition: mg/dl range Dose/Route: Number of Units Condition: 251-350 Dose/Route: 2 Condition: >350 Dose/Route: 4 Protocol Text: Custom Sliding Scale Rx Instructions: 12 units before meals nystatin 100,000 unit/gram powder 1 applic topical TID fenofibrate 54 mg tablet 54 mg PO QHS simethicone [Gas Relief (simethicone)] 80 mg tablet,chewable 80 mg PO .ACTID PRN (Reason: gas) acetic acid 0.25 % solution 30 ml irrigation BID Patient Comments: [NO ORIGINAL SIG] Dakin's Solution 0.25 % solution 1 applic topical BID artificial tear(bnuqw-onk-dup) [GenTeal Tears Moderate] 0.1-0.3-0.2 % drops 1 drp EACH EYE BID PRN (Reason: dry eyes) acetaminophen 325 mg capsule 650 mg PO Q6H glipizide 2.5 mg tablet extended release 24hr 2.5 mg PO DAILY furosemide 20 mg tablet 40 mg PO BID Qty: 30 0RF morphine [[place]] 30 mg capsule,extend.release pellets 30 mg PO Q12H 30 Days Qty: 60 0RF Changed oxycodone 10 mg tablet 5 mg PO Q6H PRN (Reason: pain) 3 Days Qty: 6 0RF Discontinued lorazepam 1 mg tablet 1 mg PO DAILY PRN (Reason: anxiety) Qty: 7 0RF Referrals / Follow Up: Rocio Bartlett MD [Primary Care Provider] - Within 1 Week Bridger Benson DO [Med Staff - Active Staff] - (-Per speech therapy recommendations he may benefit from following up with GI for an evaluation for reflux due to risk of reflux aspiration, it is recommended to follow-up with GI in an outpatient basis once acute illness has resolved) Disposition Disposition (needs filled in before D/C Order can be placed): [facility]sp Facility Charges/Coding Visit Charges Inpatient E&M: 02580 Disch Hosp >30min 11/01/24 7807 <Electronically signed by Le Wiggins MD> Cosigner Signature (if applicable): CC: Dr. Rocio Bartlett MD; Dr. Le Wiggins MD~ Signed [facility] Work Phone: [phone] Discharge summary Author Le Wiggins [facility] Note Date/Time November 01, 2024 2:46 pm [facility] Medical Records Department [address] [place] [address] Transfer to [facility] MR#: [id number] Acct: [id number] Name: MELISSA ELIAS Rep #:[id number] : [id number] From: Le Wiggins MD PCP: Dr. Rocio Bartlett MD Status:A DM IN Certification of patient admission REQUIRED AT TIME OF ADMISSION. I CERTIFY THAT POST-HOSPITAL ECF SERVICES ARE REQUIRED TO BE GIVEN ON AN IN-PATIENT BASIS BECAUSE OF THE ABOVE NAMED PATIENT'S NEED FOR [facility] CARE ON A CONTINUING BASIS FOR THE CONDITION(S) FOR WHICH HE/SHE WAS RECEIVING IN-PATIENT HOSPITAL SERVICES PRIOR TO HIS/HER TRANSFER TO [facility]. 11/01/24 1446<Electronically signed by Le Wiggins MD> Diet Diet Order/Speech Therapy: INPATIENT Hospital Diet / Speech Therapy Order(s) 10/29/24 16:28 Diet: Consistent Carb - Calorie Controlled Food consistency:: Regular Liquid Consistency:: Regular/Thin Dietary Modifications:: Sodium Restricted How many daily calories?: 2000 calorie Routine Orders/Code Status Suppository Type: Dulcolax 10mg Suppository Frequency: Daily PRN Code Status: Full Code DC O2, CPAP, BIPAP needs Home O2 Discharge instructions: Yes Type of respiratory needs?: Oxygen Oxygen frequency: Continuous Continuous oxygen liters per minute: 5 and BiPAP BiPAP instructions: Continue previous settings Wound(s) coccyx: Wound Type: Pressure Injury left heel: Wound Type: Pressure Injury Dressing Change: Adaptic Right heel: Wound Type: Pressure Injury right lateral foot: Wound Type: Pressure Injury Dressing Change: Adaptic sacrum: Wound Type: Pressure Injury Dressing Change: Dakins moistened gauze right buttock: Wound Type: Pressure Injury Dressing Change: Adaptic with Dakins moistened gauze Problem/Diagnosis (1) Acute on chronic respiratory failure with hypoxia and hypercapnia: Status: Chronic Code(s): J96.21 - Acute and chronic respiratory failure with hypoxia; J96.22 - Acute and chronic respiratory failure with hypercapnia Plan # Acute on chronic combined respiratory failure secondary to pneumonia and possible suboptimal use of BiPAP #BATOOL #Abnormal UA w/ enteroccoccus and pseudomonas # Paraplegia with chronic pain syndrome #Morbid obesity #Type 2 diabetes mellitus #pressure injuries -to right buttocks-stage IV, sacrum, stage II right lateral foot, stage II left heel #GERD 59-year-old male with history as above presented [facility] ED 10/29/2024 with worsening hypoxia. Had recently been hospitalized here 10/12 through 10/16 for acute hypoxic respiratory failure secondary to human metapneumovirus with concern for superimposed bacterial pneumonia and acute on chronic heart failure. He was ultimately discharged back to SNF and oxygen requirements improved however he came back to the ED with nursing hypoxia and was placed on high flow. Imaging suggestive of pneumonia patient started on IV antibiotics and pulmonology consulted, patient was slowly weaned down and improved back to 5 L. There was question of a problem with the BiPAP but nursing facility confirmed that it is working and it was recommended strict compliance with this. Of note patient had UA when he came in that incidentally had somewhat low colony counts of Pseudomonas but 80-100,000 Enterococcus with various resistance patterns. ID consulted for assistance, initially vancomycin discontinued and patient continued on Zosyn however given he is stable from respiratory standpoint and pulmonology okay with discharge did contact ID physician who recommended Levaquin as that will cover pulmonary and urinary source and recommended 4 more days. On day of discharge patient overall feelingmuch better with significantly improved shortness of breath, resting comfortably. No new or acute complaints. Had a little bit of nausea earlier but resolved with Zofran and was given MiraLAX as he felt he is beginning a to get constipated but is now feeling well. Patient agreeable discharge with no new acute complaints. Discharge instructions as follows: DISCHARGE INSTRUCTIONS PLEASE READ *Please take this with you to your next doctors appointment* -You will be discharged on additional 4 days of Levaquin to cover pneumonia andpossible urinary tract infection - It is important that you use your BiPAP nightly and if there are any other concerns of the BiPAP please follow-up with your physician who previously coordinated this -Per speech therapy recommendations he may benefit from following up with GI ney evaluation for reflux due to risk of reflux aspiration, it is recommended to follow-up with GI in an outpatient basis once acute illness has resolved -Please continue to follow with the wound care center on discharge -Please call your primary care provider's office upon discharge to schedule a hospital follow up within 1 week. -For any concerning signs or symptoms please call 911 or proceed to the nearest emergency department Allergies/Procedures Done in Hospital Allergies No Known Allergies Allergy (Verified 10/12/24 07:34) Type of Care/Length of Stay Estimated LOS: More Than 30 Days Type of Care Needed: Intermediate Rehab Potential: Poor Prognosis: Poor Additional Orders/Day of Discharge Day of Discharge: 11/01/24 Dietary and Speech Recommendations Dietitian Recommendations/Changes: Will adjust diet to 2000CCD and sodium restriction with Wiliam BID to manage blood sugars and promote wound healing Discharge Plan Admission Admit Date/Time: 10/29/24 14:30 Primary Reason for Your Visit: Worsening hypoxia, pneumonia Attending Provider: Le Wiggins Primary Care Provider: Rocio Bartlett Consulting Providers: Bryant Day; Josef Storey; Cristi Gann; Tez Tuttle; Palmira Campo; Elio Soto; Titus Fletcher; Alysha Cameron; Brien Martinez; Jean Mejía; Paresh Mendoza; Sully Rebolledo; Dimitris Chacko; Radha Still; Bunny Hughes; Juaquin York; Americo Bryan; Ahsan Verdin; Doni Gonzalez; Dee Ellsworth; Manuelito Porter; Georgi Sanz; Alex Martinez; Percy Price; Maurizio Parra; Minda Cm Instructions Patient Instructions: Using a BPAP Additional Instructions / Restrictions: DISCHARGE INSTRUCTIONS PLEASE READ *Please take this with you to your next doctors appointment* -You will be discharged on additional 4 days of Levaquin to cover pneumonia andpossible urinary tract infection - It is important that you use your BiPAP nightly and if there are any other concerns of the BiPAP please follow-up with your physician who previously coordinated this -Per speech therapy recommendations he may benefit from following up with GI ney evaluation for reflux due to risk of reflux aspiration, it is recommended to follow-up with GI in an outpatient basis once acute illness has resolved -Please continue to follow with the wound care center on discharge -Please call your primary care provider's office upon discharge to schedule a hospital follow up within 1 week. -For any concerning signs or symptoms please call 911 or proceed to the nearest emergency department Discharge Orders/Prescriptions Prescriptions: New levofloxacin 750 mg Tablet 750 mg PO DAILY 4 Days Qty: 0 0RF guaifenesin [Mucinex] 600 mg Tablet Extended Release 12hr 600 mg PO BID 7 Days Qty: 0 0RF Continued fluticasone propionate [Flonase Allergy Relief] 50 mcg/actuation spray,suspension 1 spray INTRANASAL DAILY Patient Comments: takes in once in awhile Rx Instructions: administer into each nostril Wiliam 7-7-1.5 gram powder in packet 1 ea PO BID naloxone 0.4 mg/mL syringe 0.4 mg IM Q5M PRN (Reason: opioid reversal) Rx Instructions: NTExceed 10 mg total dose/episode ondansetron 4 mg tablet,disintegrating 4 mg PO Q4H PRN (Reason: nausea) metformin 500 mg tablet 1,000 mg PO BID duloxetine 30 mg capsule,delayed release(DR/EC) 60 mg PO QDAY Pro-Stat Sugar Free 15-100 gram-kcal/30 mL liquid 30 ml PO BID dextrose [Glucose Gel] 40 % gel 10 g PO Q15M PRN (Reason: hypoglycemia) Rx Instructions: until symptoms of low blood sugar are controlled chlorhexidine gluconate [Hibiclens] 4 % liquid 1 applic topical .twice a week Rx Instructions: tuesday and sodium chloride 0.65 % mist 2 spray intranasal Q2H PRN (Reason: dry nasal passages) ascorbic acid (vitamin C) 500 mg tablet 500 mg PO QODAY Trulicity 3 mg/0.5 mL pen injector 3 mg subcut QWEEK Rx Instructions: once a week on Mondays pantoprazole 40 mg tablet,delayed release (DR/EC) 40 mg PO DAILY alum-mag hydroxide-simeth [Mag-Al Plus Extra Strength] 400-400-40 mg/5 mL Suspension 30 ml PO Q6H PRN PRN (Reason: Gastric Burning) Qty: 0 0RF Artificial Tears(hm-aqva-cpkn) 1-0.2-0.2 % Drops 1 drp EACH EYE BID Qty: 0 0RF carvedilol 12.5 mg Tablet 12.5 mg PO BIDCM Qty: 0 0RF amlodipine 10 mg Tablet 10 mg PO DAILY Qty: 0 0RF diphenhydramine HCl [Banophen] 25 mg Capsule 25 mg PO TID PRN PRN (Reason: Itching) Qty: 0 0RF polysaccharide iron complex [Ferrex 150] 150 mg iron Capsule 150 mg PO .QOD sennosides-docusate sodium [Stool Softener-Stimulant Laxat] 8.6-50 mg Tablet 2 tab PO BID albuterol sulfate 2.5 mg /3 mL (0.083 %) solution for nebulization 2.5 mg inhalation BID Rx Instructions: And q4hr prn methocarbamol 500 mg tablet 1,000 mg PO BID PRN (Reason: cramps) Eliquis 5 mg tablet 5 mg PO BID polyethylene glycol 3350 [ClearLax] 17 gram/dose powder 17 g PO BID insulin glargine [Lantus U-100 Insulin] 100 unit/mL solution 14 unit subcut DAILY insulin lispro 100 unit/mL solution 12 unit subcut .ac loratadine [Allerclear] 10 mg tablet 10 mg PO DAILY Rx Instructions: am insulin lispro [Humalog KwikPen Insulin] 100 unit/mL Insulin Pen See Protocol subcut [facility] Protocol: 6. Sliding Scale Insulin Custom Condition: mg/dl range Dose/Route: Number of Units Condition: 251-350 Dose/Route: 2 Condition: >350 Dose/Route: 4 Protocol Text: Custom Sliding Scale Rx Instructions: 12 units before meals nystatin 100,000 unit/gram powder 1 applic topical TID fenofibrate 54 mg tablet 54 mg PO QHS simethicone [Gas Relief (simethicone)] 80 mg tablet,chewable 80 mg PO .ACTID PRN (Reason: gas) acetic acid 0.25 % solution 30 ml irrigation BID Patient Comments: [NO ORIGINAL SIG] Dakin's Solution 0.25 % solution 1 applic topical BID artificial tear(zyobj-ivt-uwg) [GenTeal Tears Moderate] 0.1-0.3-0.2 % drops 1 drp EACH EYE BID PRN (Reason: dry eyes) acetaminophen 325 mg capsule 650 mg PO Q6H glipizide 2.5 mg tablet extended release 24hr 2.5 mg PO DAILY furosemide 20 mg tablet 40 mg PO BID Qty: 30 0RF morphine [[place]] 30 mg capsule,extend.release pellets 30 mg PO Q12H 30 Days Qty: 60 0RF Changed oxycodone 10 mg tablet 5 mg PO Q6H PRN (Reason: pain) 3 Days Qty: 6 0RF Discontinued lorazepam 1 mg tablet 1 mg PO DAILY PRN (Reason: anxiety) Qty: 7 0RF Referrals / Follow Up: Rocio Bartlett MD [Primary Care Provider] - Within 1 Week FriendBridger DO [Med Staff - Active Staff] - (-Per speech therapy recommendations he may benefit from following up with GI for an evaluation for reflux due to risk of reflux aspiration, it is recommended to follow-up with GI in an outpatient basis once acute illness has resolved) Disposition Disposition (needs filled in before D/C Order can be placed): [facility] 11/01/24 6836 <Electronically signed by Le Wiggins MD> Cosigner Signature (if applicable): CC: Dr. Josef Storey MD; Dr. Percy Price DO; Dr. Bryant Day MD; Dr. Cristi Gann MD; Dr. Palmira Campo MD; Dr. Tez Tuttle DO; Dr. Elio Soto MD; Dr. Rocio Bartlett MD; Dr. Titus Fletcher MD; Dr. Brien Martinez MD; Dr. Jean Mejía MD; Dr. aPresh Mendoza MD; Dr. Sully Rebolledo MD; Dr. Dimitris Chacko MD; Dr. Radha Still MD; Dr. Maurizio Parra DO; Dr. Juaquin York MD; Dr. Bunny Hughes MD; Dr. Minda Cm MD; Dr. Americo Bryan MD; Dr. Dee Ellsworth MD; Dr. Doni Gonzalez MD; Dr. Ahsan Verdin DO; Dr. Manuelito Porter DO; Dr. Georgi Sanz MD; Dr. Alex Martienz MD; Dr. Alysha Cameron MD ~ [facility] Work Phone: [phone] 791-421206-19-2025 Consult note Author Shaye Campo [facility] Note Date/Time November 01, 2024 1:45 pm [facility] Medical Records Department [address] [place] [address] Pharmacokinetic/Renal -Consult 10/29/24 1710 MR#: [id number] Acct: [id number] Name: MELISSA ELIAS Rep #:[id number] : 1965 59 From: Shaye Campo PCP: Dr. Rocio Bartlett MD Status:A DM IN Y Location: [place] [address] Consult Antibiotic Management Pharmacy has been consulted to manage selected antibiotic: Vancomycin Type of Intervention Type of Consult: Follow-up Suspected Infection Suspected Infection: Pneumonia Labs Labs: Sodium 139 mmol/L (133-145) 10/29/24 10:33 Potassium 4.1 mmol/L (3.3-5.1) 10/29/24 10:33 Chloride 92 mmol/L (98-108) L 10/29/24 10:33 Carbon Dioxide 38.9 mmol/L (21.0-32.0) H 10/29/24 10:33 Anion Gap 8 (5-15) 10/29/24 10:33 BUN 24 mg/dL (4-19) H 10/29/24 10:33 Creatinine 0.69 mg/dL (0.70-1.20) L 10/29/24 10:33 Est GFR (MDRD) Non-Af 108 (>60) 10/29/24 10:33 BUN/Creatinine Ratio 34.7 RATIO (10-20) H 10/29/24 10:33 Glucose 237 mg/dL (70-99) H 10/29/24 10:33 Microbiology Microbiology: Microbiology 10/29/24 11:04 Mucosa - Nose SARS-CoV-2, Influenza & RSV (PCR) - Final Estimated Creatinine Clearance Estimated Creatinine Clearance: > 100 Goal Trough Goal Trough: 15-20 mcg/mL Pharmacy Plan for Drug Dosing Pharmacy Plan for Drug Dosing: [facility] IV VANCOMYCIN Consulting Physician: Dr. Juárez Indication: Pneumonia Goal Trough: 15-20 SrCr: 0.69 CrCl > 100 Comments: Received 2000mg x1 dose in ED @ 13:50 10/29/24 Vancomycin Dose: 1500mg Q8H to start @ 22:00 10/29/24 Pending Level: 10/30/24 @ 13:30 Pharmacy Service will continue to monitor and adjust dosing as required. Follow-Up Labs Follow-Up Labs: Trough: Vancomycin (10/30/24 @ 13:30) 10/29/24 1711 <Electronically signed by Shaye Campo> Date _ Shaye Campo 11/01/24 1345 <Electronically signed by Percy mccormick DO> Cosigner Signature (if applicable): Date Percy Price DO CC: ~ Signed [facility] Work Phone: 1(972) 692-438606-19-2025 [facility]06-19-2025 Progress note Author Tez Tuttle [facility] Note Date/Time November 01, 2024 12:[address] [place] [address] [facility] Medical Records Department [address] [place] [address] Progress Note - Box Feeder 11/01/24 0848 MR#: [id number] Acct: [id number] Name: MELISSA ELIAS Rep #:[id number] : 1965 59 From: Tez Tuttle DO PCP: Dr. Rocio Bartlett MD Status:A DM IN Location: [place] [address] Assessment & Plan Assessment/Plan (1) Acute on chronic respiratory failure with hypoxia and hypercapnia: PLAN: Plan RECOMMENDATIONS: 1. Continue to wean supplemental oxygen to maintain saturation is 88 to 92%. 2. BiPAP therapy with naps and nightly. 3. Antimicrobials per ID recommendations. 4. Aggressive bronchopulmonary hygiene. 5. Diuretics per home regimen. 6. Compliance with outpatient PAP therapy is strongly recommended. IMPRESSIONS: 1. Acute on chronic combined respiratory failure The patient was recently hospitalized with human metapneumovirus infection with secondary bacterial pneumonia. He presented to the hospital with worsening hypoxemia with radiographic evidence of a persistent right lower lobe consolidation and atelectasis. At this time, I agree with continuing empiric broad-spectrum antimicrobials to cover for healthcare associated pneumonia. In addition to the aforementioned, the patient's urinalysis was also concerning forpossible infection as well. The patient is currently maintaining appropriate oxygen saturations on 5 L/min, which is his baseline. Unfortunately, the patient does have a known history of sleep apnea, but has been noncompliant withthe use of BiPAP therapy at his nursing facility. I would recommend that we continue aggressive bronchopulmonary hygiene and utilize BiPAP therapy with napsand nightly to assist with alveolar recruitment. 2. Obstructive sleep apnea/alveolar hypoventilation secondary to obesity Continue BiPAP support with naps and nightly. Prior to discharge, the functional status of the patient's BiPAP machine will need to be verified with the intermediate facility. 3. History of paraplegia related to L1 injury/chronic pain syndrome/morbid obesity Complicates care, management, recovery and prognosis. Continue supportive measures as noted above along with BiPAP therapy, per outpatient regimen. This note was generated with [employer] dictation software. It may contain incorrectwords, spelling, and punctuation that were not noted in checking the note beforesigning. Subjective Subjective The patient was seen and examined at the bedside this morning. Events from the last 24 hours have been reviewed. The patient is currently afebrile, hemodynamically stable and maintaining appropriate oxygen saturations on 5 L/minvia nasal cannula. The patient is doing well clinically and has no specific complaints. White blood cell count is normal. Creatinine is within normal limits. Objective Data Objective Data The patient's most recent lab work, culture data and imaging studies have all been personally reviewed. Surface echocardiogram from September 2024 demonstrated an ejection fraction of 55 to 60%. Blood and sputum cultures have not demonstratedany growth to date. Urine culture was positive for Enterococcus at 80-100,000 CFU per mL. Vital Signs: Vital Signs Temp Pulse Resp BP Pulse Ox O2 Del Method O2 Flow Rate 97.0 F L 97 16 143/80 H 93 Nasal Cannula 5 11/01/24 03:46 11/01/24 07:07 11/01/24 07:07 11/01/24 03:46 11/01/24 07:07 11/01/24 07:07 11/01/24 07:07 FiO2 40 11/01/24 05:40 Oxygen Flow Rate (L/min) 5 Oxygen Delivery Method Nasal Cannula Weight: 303 lb 5.697 oz Body Mass Index (BMI) 47.5 Intake & Output: Intake and Output for Last 24 Hours 10/30/24 10/31/24 11/01/24 23:59 23:59 23:59 Intake Total 1640 / 1640 1470 / 1470 250 / 250 Output Total 5050 / 5050 4550 / 4550 900 / 900 Balance -3410 / -3410 -3080 / -3080 -650 / -650 Lab / Micro Data Attestation: I reviewed the patient's lab results. 11/01/24 03:05 11/01/24 03:05 Labs: Laboratory Results - last 24 hr 10/31/24 09:34: POC Glucose 171 H 10/31/24 10:01: WBC 7.2, RBC 3.93 L, Hgb 8.7 L, Hct 32.1 L, MCV 81.7, MCH 22.1 L, MCHC 27.1 L, RDW Std Deviation 55.4 H, RDW Coeff of Mary 18.8 H, Plt Count 251,MPV 9.6, Immature Gran % (Auto) 0.400, Neut % (Auto) 69.6, Lymph % (Auto) 16.4 L, Hayes % (Auto) 9.9, Eos % (Auto) 3.1, Baso % (Auto) 0.6, Absolute Neuts (auto) 5.0, Absolute Lymphs (auto) 1.18, Nucleated RBC % 0, Sodium 138, Potassium 3.9, Chloride 93 L, Carbon Dioxide 36.7 H, Anion Gap 8, BUN 17, Creatinine 0.64 L, Estim Creat Clear Calc 170.58, Est GFR (MDRD) Non-Af 111, BUN/Creatinine Ratio 26.8 H, Glucose 177 H, Calcium 8.7 10/31/24 11:16: POC Glucose 180 H 10/31/24 16:36: POC Glucose 171 H 10/31/24 21:43: POC Glucose 169 H 11/01/24 03:05: WBC 7.6, RBC 4.04 L, Hgb 9.1 L, Hct 32.8 L, MCV 81.2, MCH 22.5 L, MCHC 27.7 L, RDW Std Deviation 54.4 H, RDW Coeff of Mary 18.9 H, Plt Count 241,MPV 9.4, Immature Gran % (Auto) 0.400, Neut % (Auto) 64.3, Lymph % (Auto) 19.0, Hayes % (Auto) 11.9 H, Eos % (Auto) 4.0, Baso % (Auto) 0.4, Absolute Neuts (auto)4.9, Absolute Lymphs (auto) 1.44, Nucleated RBC % 0, Sodium 136, Potassium 3.8, Chloride 92 L, Carbon Dioxide 34.9 H, Anion Gap 9, BUN 21 H, Creatinine 0.71, Estim Creat Clear Calc 153.76, Est GFR (MDRD) Non-Af 107, BUN/Creatinine Ratio 29.2 H, Glucose 152 H, Calcium 8.7, Vancomycin Trough 19.4 H 11/01/24 08:18: POC Glucose 200 H Micro: Microbiology 10/29/24 20:25 Sputum, Expectorated/Coughed Gram Stain - Final 10/29/24 20:25 Sputum, Expectorated/Coughed Respiratory Culture - Final Mixed normal respiratory beverly. No Streptococcus pneumoniae, beta-hemolytic Streptococcus or Staphylococcus aureus isolated. 10/29/24 11:20 Urine, Clean Catch Urine Culture - Final Pseudomonas aeruginosa Enterococcus faecalis 10/29/24 11:09 Blood Culture (Wb) - Left Hand Blood Culture - Preliminary No growth in 48 hours. 10/29/24 10:33 Blood Culture (Wb) - Left Hand Blood Culture - Preliminary No growth in 48 hours. 10/29/24 11:20 Urine Catheter - Bartlett Streptococcus pneumoniae Antigen (M - Final 10/29/24 11:20 Urine Catheter - Bartlett Legionella Antigen - Final 10/29/24 15:23 Mucosa - Nasopharyngeal Respiratory Panel (PCR) - Final 10/29/24 11:04 Mucosa - Nose SARS-CoV-2, Influenza & RSV (PCR) - Final Physical Exam Const alert, oriented x3 and no apparent distress Constitutional Narrative: Morbidly obese. General Appearance: cooperative HEENT normocephalic, head/scalp atraumatic and moist oral mucous membranes Eyes PERRL, EOMs intact bilaterally and conjunctivae normal Neck supple General: trachea midline Chest inspection of chest normal Resp Auscultation: diminished lung sounds; Negative for rales, rhonchi or wheezes Cardio regular rate and regular rhythm GI soft to palpation and non-tender Extremity no clubbing, cyanosis or edema Skin no rashes or lesions noted Neuro CN's II-XII intact bilaterally Psych cooperative and affect normal Charges/Coding Visit Charges Inpatient E&M: 21312 Subs Hosp L2 11/01/24 1211 <Electronically signed by Tez Tuttle DO> Cosigner Signature (if applicable): CC: ~ Signed [facility] Work Phone: [phone]) 158-816606-19-2025 Consult note Author Minda Cm [facility] Note Date/Time November 01, 2024 10:3 0am [facility] Medical Records Department [address] [place] [address] Consultation - Infectious Dx 11/01/24 1026 MR#: [id number] Acct: [id number] Name: MELISSA ELIAS Rep #:[id number] : 1965 59 From: Minda ramírez MD PCP: Dr. Rocio Bartlett MD Status:A DM IN Location: [place] [address] Assessment & Plan Assessment/Plan (1) Acute on chronic respiratory failure with hypoxia and hypercapnia: (2) Pneumonia: PLAN: Sx improving. UAgs neg. Bcx neg. Sputum cx neg. Resp pcr panel neg. Denies dysuria, UA with 0-5 wbc but ucx with small amount PsA and moderate enterococcus. Will stop vanc. Cont zosyn for now. Will follow, thank you HPI Consult Data Date of Consult: 11/01/24 HPI Narrative Reason for Consultation: pneumonia HPI Narrative: MEILSSA ELIAS, is a 59 M with chronic resp failure, admitted 10/12-10/16 with human metapneumovirus and suspected bacterial pneumonia. Discharged to [facility] withone week augmentin. Over past few days, increased cough with yellow sputum, dyspnea, and hypoxia. Admitted from ED on vanc/zosyn, seen by pulm, feeling better. Full ROS performed and neg except as noted above. [facility] Medical History VRE (vancomycin resistant enterococcus) culture positive Decubitus ulcer of sacral region, stage 4 Lymphedema BATOOL treated with BiPAP Abscess of back Constipation Pressure ulcer of sacral region Chronic indwelling Bartlett catheter Blood loss anemia Clot retention of urine Pressure injury, unstageable, with eschar Bilateral pulmonary embolism Rhabdomyolysis Community acquired pneumonia Hypoglycemia Acute osteomyelitis of spine Former tobacco use Paraplegia Cellulitis of leg without foot, right Anemia BMI greater than 40 Type 2 diabetes mellitus HTN (hypertension) H/o back surgery Home Medications ?Medication ?Instructions ?Recorded ?Last Taken ?Type fluticasone propionate 50 1 spray intranasal DAILY haim rtness 03/03/20 Unknown History mcg/actuation nasal of breath spray,suspension (Flonase Allergy Relief) apixaban 5 mg tablet (Eliquis) 5 mg PO BID 07/29/23 History methocarbamol 500 mg tablet 1,000 mg PO BID PRN cramps 07/29/23 08/31/23 History polyethylene glycol 3350 17 17 g PO BID constipation 0 07/29/23 07/29/23 History gram/dose oral powder (ClearLax) pantoprazole 40 mg tablet,delayed 40 mg PO DAILY stoma ch 08/31/23 08/31/23 History release aluminum-mag hydroxide-simethicone 30 ml PO Q6H PRN AK N Gastric 09/13/23 Unknown Rx 400 mg-400 mg-40 mg/5 mL oral susp Burning #0 mL (Mag-Al Plus Extra Strength) amlodipine 10 mg tablet 10 mg PO DAILY #0 tabs 09/12 Unknown Rx carvedilol 12.5 mg tablet 12.5 mg PO BIDCM #0 tabs Unknown Rx diphenhydramine HCl 25 mg capsule 25 mg PO TID PRN PRN Itching #0 09/13/23 Unknown Rx (Banophen) caps peg [id number] 1 1 drp EACH EYE BID dry eyes #0 mL 09/13/23 Unknown Rx %-0.2 %-0.2 % eye drops (Artificial Tears ([id number])) polysaccharide iron complex 150 mg 150 mg PO .QOD supp lement 10/15/23 Unknown History iron capsule (Ferrex) sennosides 8.6 mg-docusate sodium 2 tab PO BID Constip ation 10/15/23 Unknown History 50 mg tablet (Stool Softener-Stimulant Laxative) insulin lispro 100 unit/mL See Protocol subcut ACHS bl ood 10/23/23 Unknown History subcutaneous pen (Humalog KwikPen sugars (U-100) Insulin) loratadine 10 mg tablet 10 mg PO DAILY allergies 02/06 Unknown History (Allerwaltar) albuterol sulfate 2.5 mg/3 mL 2.5 mg inhalation BID wh eezing 10/25/23 Unknown History (0.083 %) solution for nebulization arginine 7 gram-glutamine 7 1 ea PO BID wound healing 03/22/24 Unknown History gram-calcium HMB 1.5 gram oral powder pack (Wiliam) amino acids-protein hydrolysate 15 30 ml PO BID Unknown History gram-100 kcal/30 mL oral liquid (Pro-Stat Sugar Free) ascorbic acid (vitamin C) 500 mg 500 mg PO QODAY suppl ement 03/26/24 Unknown History tablet chlorhexidine gluconate 4 % 1 applic topical .twice a week 03/26/24 Unknown History topical liquid (Hibiclens) unknown dextrose 40 % oral gel (Glucose 10 g PO Q15M PRN hypog lycemia 03/26/24 Unknown History Gel) naloxone 0.4 mg/mL injection 0.4 mg IM Q5M PRN opioid reversal 03/26/24 Unknown History syringe ondansetron 4 mg disintegrating 4 mg PO Q4H PRN nausea 03/26/24 Unknown History tablet sodium chloride 0.65 % nasal mist 2 spray intranasal Q 2H PRN dry 03/26/24 Unknown History nasal passages dulaglutide 3 mg/0.5 mL 3 mg subcut QWEEK diabetes 0 07/18/24 Unknown History subcutaneous pen injector (Trulicity) duloxetine 30 mg capsule,delayed 60 mg PO QDAY mood 10/28/24 History release insulin glargine 100 unit/mL 14 unit subcut DAILY diab etes 07/18/24 Unknown History subcutaneous solution (Lantus mellitus type 2 U-100 Insulin) insulin lispro 100 unit/mL 12 unit subcut .ac diabetes 07/18/24 Unknown History subcutaneous solution metformin 500 mg tablet 1,000 mg PO BID diabetes 10/07 Unknown History fenofibrate 54 mg tablet 54 mg PO QHS cholesterol 09/07 Unknown History nystatin 100,000 unit/gram topical 1 applic topical TI D rednes 08/17/24 Unknown History powder morphine 30 mg capsule,extended 30 mg PO Q12H pain 30 days #60 caps 10/10/24 Unknown Rx release pellets ([place]) acetaminophen 325 mg capsule 650 mg PO Q6H pain Unknown History acetic acid 0.25 % irrigation 30 ml irrigation BID sup rapubic 10/12/24 Unknown History solution cath artificial 1 drp EACH EYE BID PRN dry e yes 10/12/24 Unknown History tears(pwrdlil-nstmihtz-feebsma) 0.1 %-0.3 %-0.2 % eye drops (GenTeal Tears Moderate) glipizide 2.5 mg tablet, extended 2.5 mg PO DAILY diab etes 10/12/24 Unknown History release 24 hr simethicone 80 mg chewable tablet 80 mg PO .ACTID PRN gas 10/12/24 Unknown History (Gas Relief (simethicone)) sodium hypochlorite 0.25 % 1 applic topical BID wound 10/12/24 Unknown History solution (Dakin's Solution) furosemide 20 mg tablet 40 mg (2 x 20 mg) PO BID #30 tabs 10/16/24 Unknown Rx lorazepam 1 mg tablet 1 mg PO DAILY PRN anxiety #7 tabs 10/16/24 Unknown Rx oxycodone 10 mg tablet 5 mg PO .QID pain 10/29/24 U nknown History Allergy/AdvReac Type Severity Reaction Status Date / Time No Known Allergies Allergy Verified 10/12/24 07:34 Family History Mother Hypertension Hypotension Diabetes Arthritis Father Hypertension Hypotension Heart disease Status post double vessel coronary artery bypass angina Arthritis Grandfather Prostate cancer Grandmother Uterine cancer Surgical History History of hip replacement Colostomy status Hx of spinal surgery H/O sinus surgery Social History housing: alf current occupational status: employed and retired Smoking Status: Former smoker alcohol intake: never substance use type: does not use do you feel safe at home: Yes Physical Exam Const alert, oriented x3 and no apparent distress General Appearance: cooperative HEENT normocephalic and head/scalp atraumatic Eyes PERRL and EOMs intact bilaterally Neck supple and No nodes Resp Auscultation: diminished lung sounds Cardio regular rate and regular rhythm GI soft to palpation, non-tender and non-distended Extremity General Extremity: Negative for edema Skin no rashes or lesions noted Neuro CN's II-XII intact bilaterally Lab / Micro Data Attestation: I reviewed the patient's lab results. 11/01/24 03:05 11/01/24 03:05 Labs: Laboratory Results - last 24 hr 10/31/24 10:01: Sodium 138, Potassium 3.9, Chloride 93 L, Carbon Dioxide 36.7 H,Anion Gap 8, BUN 17, Creatinine 0.64 L, Estim Creat Clear Calc 170.58, Est GFR (MDRD) Non-Af 111, BUN/Creatinine Ratio 26.8 H, Glucose 177 H, Calcium 8.7 10/31/24 11:16: POC Glucose 180 H 10/31/24 16:36: POC Glucose 171 H 10/31/24 21:43: POC Glucose 169 H 11/01/24 03:05: WBC 7.6, RBC 4.04 L, Hgb 9.1 L, Hct 32.8 L, MCV 81.2, MCH 22.5 L, MCHC 27.7 L, RDW Std Deviation 54.4 H, RDW Coeff of Mary 18.9 H, Plt Count 241,MPV 9.4, Immature Gran % (Auto) 0.400, Neut % (Auto) 64.3, Lymph % (Auto) 19.0, Hayes % (Auto) 11.9 H, Eos % (Auto) 4.0, Baso % (Auto) 0.4, Absolute Neuts (auto)4.9, Absolute Lymphs (auto) 1.44, Nucleated RBC % 0, Sodium 136, Potassium 3.8, Chloride 92 L, Carbon Dioxide 34.9 H, Anion Gap 9, BUN 21 H, Creatinine 0.71, Estim Creat Clear Calc 153.76, Est GFR (MDRD) Non-Af 107, BUN/Creatinine Ratio 29.2 H, Glucose 152 H, Calcium 8.7, Vancomycin Trough 19.4 H 11/01/24 08:18: POC Glucose 200 H Micro: Microbiology 10/29/24 20:25 Sputum, Expectorated/Coughed Gram Stain - Final 10/29/24 20:25 Sputum, Expectorated/Coughed Respiratory Culture - Final Mixed normal respiratory beverly. No Streptococcus pneumoniae, beta-hemolytic Streptococcus or Staphylococcus aureus isolated. 10/29/24 11:20 Urine, Clean Catch Urine Culture - Final Pseudomonas aeruginosa Enterococcus faecalis 10/29/24 11:09 Blood Culture (Wb) - Left Hand Blood Culture - Preliminary No growth in 48 hours. 10/29/24 10:33 Blood Culture (Wb) - Left Hand Blood Culture - Preliminary No growth in 48 hours. 11/01/24 1030 <Electronically signed by Minda Cm MD> Cosigner Signature (if applicable): CC: Dr. Percy Price DO; Dr. Rocio Bartlett MD~ Signed [facility] Work Phone: 1(574) 462-119706-19-2025 Consult note Author Lucian Fowler [facility] Note Date/Time November 01, 2024 4:18 am [facility] Medical Records Department [address] [place] [address] Pharmacokinetic/Renal -Consult 11/01/24 0417 MR#: [id number] Acct: [id number] Name: MELISSA ELIAS Rep #:[id number] : 1965 59 From: Lucian Fowler PCP: Dr. Rocio Bartlett MD Status:A DM IN Y Location: [place] [address] Consult Antibiotic Management Pharmacy has been consulted to manage selected antibiotic: Vancomycin Type of Intervention Type of Consult: Follow-up Suspected Infection Suspected Infection: Pneumonia Labs Labs: Sodium 136 mmol/L (133-145) 11/01/24 03:05 Potassium 3.8 mmol/L (3.3-5.1) 11/01/24 03:05 Chloride 92 mmol/L (98-108) L 11/01/24 03:05 Carbon Dioxide 34.9 mmol/L (21.0-32.0) H 11/01/24 03:05 Anion Gap 9 (5-15) 11/01/24 03:05 BUN 21 mg/dL (4-19) H 11/01/24 03:05 Creatinine 0.71 mg/dL (0.70-1.20) 11/01/24 03:05 Est GFR (MDRD) Non-Af 107 (>60) 11/01/24 03:05 BUN/Creatinine Ratio 29.2 RATIO (10-20) H 11/01/24 03:05 Glucose 152 mg/dL (70-99) H 11/01/24 03:05 Vancomycin Trough 19.4 ug/mL (5.0-15.0) H 11/01/24 03:05 Random Vancomycin 13.6 ug/mL (0.0-15.0) 10/31/24 02:25 Microbiology Microbiology: Microbiology 10/29/24 11:09 Blood Culture (Wb) - Left Hand Blood Culture - Preliminary No growth in 48 hours. 10/29/24 10:33 Blood Culture (Wb) - Left Hand Blood Culture - Preliminary No growth in 48 hours. 10/29/24 20:25 Sputum, Expectorated/Coughed Gram Stain - Final 10/29/24 20:25 Sputum, Expectorated/Coughed Respiratory Culture - Preliminary Appears to be normal respiratory beverly. Further studies to follow. 10/29/24 11:20 Urine, Clean Catch Urine Culture - Preliminary Pseudomonas aeruginosa Enterococcus faecalis 10/29/24 11:20 Urine Catheter - Bartlett Streptococcus pneumoniae Antigen (M - Final 10/29/24 11:20 Urine Catheter - Bartlett Legionella Antigen - Final 10/29/24 15:23 Mucosa - Nasopharyngeal Respiratory Panel (PCR) - Final 10/29/24 11:04 Mucosa - Nose SARS-CoV-2, Influenza & RSV (PCR) - Final Dosing Weight Weight used for dosin.6 kg Estimated Creatinine Clearance Estimated Creatinine Clearance: 154 Goal Trough Goal Trough: 15-20 mcg/mL Pharmacy Plan for Drug Dosing Pharmacy Plan for Drug Dosing: Vancomycin trough level of 19.4, drawn 8.3hrs post-dose, was within the target range of 15-20. Will continue dosing at 1000mg q8h, and will draw another troughin two days. Pharmacy Service will continue to monitor and adjust dosing as required. Follow-Up Labs Follow-Up Labs: Trough: Vancomycin Date/Time Labs Ordered Labs to be done on [date and time ordered]: 11/03/24 @0300 11/01/24 0418 <Electronically signed by Lucian rey> Date _ Lucian Fowler Debbie Signature (if applicable): Date CC: ~ Signed [facility] Work Phone: 1([phone]) 324-679806-18-2025 Progress note Author Le Wiggins [facility] Note Date/Time October 31, 2024 8:01 pm [facility] Medical Records Department [address] [facility] [place] [address] Progress Note - Hospitalist 10/31/241954 MR#: [id number] Acct: [id number] Name: MELISSA ELIAS Rep #:[id number] : 1965 59 From: Le Wiggins MD PCP: Dr. Rocio Bartlett MD Status:A DM IN Location: [place] [address] Reason for Visit Reason for Visit: Diagnoses Pneumonia, unspecified organism (10/29/24) Acute and chronic respiratory failure with hypoxia (10/29/24) Acute and chronic respiratory failure with hypercapnia (10/29/24) Subjective Subjective Patient with some muscle spasms and asking about resuming his home Robaxin, otherwise does report breathing continues to improve even compared to yesterday though still some shortness of breath. Also with cough but this is improving aswell Objective Data Objective Data Vital Signs: Vital Signs Temp Pulse Resp BP Pulse Ox O2 Del Method O2 Flow Rate 98.0 F 95 18 122/63 H 93 High Flow 5 10/31/24 16:00 10/31/24 16:00 10/31/24 16:00 10/31/24 16:00 10/31/24 16:00 10/31/24 16:00 10/31/24 16:00 FiO2 40 10/31/24 04:15 Oxygen Flow Rate (L/min) 5 Oxygen Delivery Method High Flow Weight: 137.6 kg Body Mass Index (BMI) 47.5 Intake & Output: Intake and Output for Last 24 Hours 10/29/24 10/30/24 10/31/24 23:59 23:59 23:59 Intake Total 2530 / 2530 1640 / 1640 1470 / 1470 Output Total 660 / 1510 5050 / 5050 3450 / 3450 Balance 1870 / 1020 -3410 / -3410 -1979 / -1979 Lab / Micro Data 10/31/24 10:01 10/31/24 10:01 Labs: Laboratory Results - last 24 hr 10/30/24 23:00: POC Glucose 150 H 10/31/24 02:25: Random Vancomycin 13.6 10/31/24 09:34: POC Glucose 171 H 10/31/24 10:01: WBC 7.2, RBC 3.93 L, Hgb 8.7 L, Hct 32.1 L, MCV 81.7, MCH 22.1 L, MCHC 27.1 L, RDW Std Deviation 55.4 H, RDW Coeff of Mary 18.8 H, Plt Count 251,MPV 9.6, Immature Gran % (Auto) 0.400, Neut % (Auto) 69.6, Lymph % (Auto) 16.4 L, Hayes % (Auto) 9.9, Eos % (Auto) 3.1, Baso % (Auto) 0.6, Absolute Neuts (auto) 5.0, Absolute Lymphs (auto) 1.18, Nucleated RBC % 0, Sodium 138, Potassium 3.9, Chloride 93 L, Carbon Dioxide 36.7 H, Anion Gap 8, BUN 17, Creatinine 0.64 L, Estim Creat Clear Calc 170.58, Est GFR (MDRD) Non-Af 111, BUN/Creatinine Ratio 26.8 H, Glucose 177 H, Calcium 8.7 10/31/24 11:16: POC Glucose 180 H 10/31/24 16:36: POC Glucose 171 H Micro: Microbiology 10/29/24 11:09 Blood Culture (Wb) - Left Hand Blood Culture - Preliminary No growth in 48 hours. 10/29/24 10:33 Blood Culture (Wb) - Left Hand Blood Culture - Preliminary No growth in 48 hours. 10/29/24 20:25 Sputum, Expectorated/Coughed Gram Stain - Final 10/29/24 20:25 Sputum, Expectorated/Coughed Respiratory Culture - Preliminary Appears to be normal respiratory beverly. Further studies to follow. 10/29/24 11:20 Urine, Clean Catch Urine Culture - Preliminary Pseudomonas aeruginosa Enterococcus faecalis 10/29/24 11:20 Urine Catheter - Bartlett Streptococcus pneumoniae Antigen (M - Final 10/29/24 11:20 Urine Catheter - Bartlett Legionella Antigen - Final 10/29/24 15:23 Mucosa - Nasopharyngeal Respiratory Panel (PCR) - Final 10/29/24 11:04 Mucosa - Nose SARS-CoV-2, Influenza & RSV (PCR) - Final Physical Exam Narrative General: Alert, oriented, no apparent distress HEENT: Atraumatic, normocephalic Eyes: Anicteric, normal conjunctiva, extraocular movements grossly intact Neck: Supple Respiratory: Slight increased respiratory effort, breath sounds coarse somewhat scattered Cardiovascular: Regular rate and rhythm GI: Soft, nontender, nondistended Extremities: No significant pitting Musculoskeletal: Patient paraplegic at baseline, moves upper extremities Neuro: Patient paraplegic at baseline Skin: No rashes appreciated Psych: Cooperative Assessment & Plan Assessment/Plan (1) Acute and chronic respiratory failure with hypoxia: PLAN: Plan # Acute on chronic combined respiratory failure secondary to pneumonia and possible suboptimal use of BiPAP - Patient on antibiotics with sputum cultures pending - Is slowly improving - Pulmonology following - Will likely be able to DC next 1 to 2 days depending on O2 requirements and progress #BATOOL -Continue home NIPPV, will be important that patient continues this at SNF, if he does not feel that it is working right will need this to be evaluated further # Paraplegia with chronic pain syndrome - Supportive care -Continue home medications - Resume home Robaxin for muscle spasms #Morbid obesity -BMI documented as 47.5 kg/m? at time of admission -Complicates treatment, prognosis, outcomes -Recommend weight loss and lifestyle changes #Type 2 diabetes mellitus -Glucose checks and sliding scale insulin #pressure injuries -to right buttocks-stage IV, sacrum, stage II right lateral foot, stage II left heel -wound care nurse is directing wound care-complicates care, management, recovery, and prognosis #GERD -Continue PPI #DVT ppx: Patient on Eliquis Le Wiggins MD Charges/Coding Visit Charges Inpatient E&M: 97842 Subs Hosp L2 10/31/241999 <Electronically signed by Le Wiggins MD> Cosigner Signature (if applicable): CC: ~ Signed ADDENDUM by Dr. Le Wiggins MD on 10/31/24 at 2000 Addendum Likely outpatient GI consult to evaluate for reflux per speech recommendations 10/31/242000<Electronically signed by Le Wiggins MD> Cosigner Signature (if applicable): cc: ~* Signed [facility] Work Phone: [phone]) 244-556006-18-2025 Procedure [facility] 10-31-2024 Progress note Author Tez Tuttle [facility] Note Date/Time October 31, 2024 8:59 am [facility] Medical Records Department [address] [place] [address] Progress Note - Box Feeder 10/31/24 0755 MR#: [id number] Acct: [id number] Name: MELISSA ELIAS Rep #:[id number] : 1965 59 From: Tez Tuttle DO PCP: Dr. Rocio Bartlett MD Status:A DM IN Location: [place] [address] Assessment & Plan Assessment/Plan (1) Acute on chronic respiratory failure with hypoxia and hypercapnia: PLAN: Plan RECOMMENDATIONS: 1. Continue to wean supplemental oxygen to maintain saturation is 88 to 92%. 2. BiPAP therapy with naps and nightly. 3. Continue empiric broad-spectrum antimicrobials, pending culture results. 4. Aggressive bronchopulmonary hygiene. 5. Diuretics per home regimen. 6. Compliance with outpatient PAP therapy is strongly recommended. IMPRESSIONS: 1. Acute on chronic combined respiratory failure The patient was recently hospitalized with human metapneumovirus infection with secondary bacterial pneumonia. He presented to the hospital with worsening hypoxemia with radiographic evidence of a persistent right lower lobe consolidation and atelectasis. At this time, I agree with continuing empiric broad-spectrum antimicrobials to cover for healthcare associated pneumonia. Cultures are currently pending. In addition to the aforementioned, the patient's urinalysis was also concerning for possible infection as well. The patient is currently maintaining appropriate oxygen saturations on 6 L/min, but indicated that he was requiring 5 L/min at his baseline. Unfortunately, the patient does have a known history of sleep apnea, but has been noncompliant withthe use of BiPAP therapy at his nursing facility. I would recommend that we continue aggressive bronchopulmonary hygiene and utilize BiPAP therapy with napsand nightly to assist with alveolar recruitment. 2. Obstructive sleep apnea/alveolar hypoventilation secondary to obesity Continue BiPAP support with naps and nightly. Prior to discharge, the functional status of the patient's BiPAP machine will need to be verified with the intermediate facility. 3. History of paraplegia related to L1 injury/chronic pain syndrome/morbid obesity Complicates care, management, recovery and prognosis. Continue supportive measures as noted above along with BiPAP therapy, per outpatient regimen. This note was generated with Action[employer] dictation software. It may contain incorrectwords, spelling, and punctuation that were not noted in checking the note beforesigning. Subjective Subjective The patient was seen and examined at the bedside this morning. Events from the last 24 hours have been reviewed. The patient is currently afebrile, hemodynamically stable and maintaining appropriate oxygen saturations on 6 L/minvia nasal cannula. The patient does believe that his breathing quality is slowly improving with antimicrobials. The patient reported that he did utilize PAP therapy overnight. Objective Data Objective Data The patient's most recent lab work, culture data and imaging studies have all been personally reviewed. Surface echocardiogram from September 2024 demonstrated an ejection fraction of 55 to 60%. Blood, urine and sputum cultures are pending. Vital Signs: Vital Signs Temp Pulse Resp BP Pulse Ox O2 Del Method O2 Flow Rate 98.6 F 93 22 H 139/74 H 94 Nasal Cannula 6 10/31/24 03:59 10/31/24 06:57 10/31/24 06:57 10/31/24 03:59 10/31/24 06:57 10/31/24 06:57 10/31/24 06:57 FiO2 40 10/31/24 04:15 Oxygen Flow Rate (L/min) 6 Oxygen Delivery Method Nasal Cannula Weight: 303 lb 5.697 oz Body Mass Index (BMI) 47.5 Intake & Output: Intake and Output for Last 24 Hours 10/29/24 10/30/24 10/31/24 23:59 23:59 23:59 Intake Total 2530 / 2530 1640 / 1640 250 / 250 Output Total 660 / 1510 5050 / 5050 800 / 800 Balance 1870 / 1020 -3410 / -3410 -550 / -550 Lab / Micro Data Attestation: I reviewed the patient's lab results. 10/30/24 06:24 10/30/24 06:24 Labs: Laboratory Results - last 24 hr 10/30/24 08:39: POC Glucose 112 H 10/30/24 12:07: POC Glucose 188 H 10/30/24 14:00: Vancomycin Trough 28.8 H 10/30/24 16:58: POC Glucose 169 H 10/30/24 23:00: POC Glucose 150 H 10/31/24 02:25: Random Vancomycin 13.6 Micro: Microbiology 10/29/24 11:20 Urine, Clean Catch Urine Culture - Preliminary Pseudomonas aeruginosa Enterococcus faecalis 10/29/24 20:25 Sputum, Expectorated/Coughed Gram Stain - Final 10/29/24 11:20 Urine Catheter - Bartlett Streptococcus pneumoniae Antigen (M - Final 10/29/24 11:20 Urine Catheter - Bartlett Legionella Antigen - Final 10/29/24 15:23 Mucosa - Nasopharyngeal Respiratory Panel (PCR) - Final 10/29/24 11:04 Mucosa - Nose SARS-CoV-2, Influenza & RSV (PCR) - Final Physical Exam Const alert, oriented x3 and no apparent distress Constitutional Narrative: Morbidly obese. General Appearance: cooperative HEENT normocephalic, head/scalp atraumatic and moist oral mucous membranes Eyes PERRL, EOMs intact bilaterally and conjunctivae normal Neck supple General: trachea midline Chest inspection of chest normal Resp Auscultation: diminished lung sounds; Negative for rales, rhonchi or wheezes Cardio regular rate and regular rhythm GI soft to palpation and non-tender Extremity no clubbing, cyanosis or edema Skin no rashes or lesions noted Neuro CN's II-XII intact bilaterally Psych cooperative and affect normal Charges/Coding Visit Charges Inpatient E&M: 86656 Subs Hosp L2 10/31/24 0859 <Electronically signed by Tez Tuttle DO> Cosigner Signature (if applicable): CC: ~ Signed [facility] Work Phone: [phone]) 493-395206-18-2025 Consult note Author Boaz Eugene [facility] Note Date/Time October 31, 2024 3:47 am [facility] Medical Records Department [address] [place] [address] Pharmacokinetic/Renal -Consult 10/31/24 0342 MR#: [id number] Acct: [id number] Name: MELISSA ELIAS Rep #:[id number] : 1965 59 From: Boaz Ellington od PCP: Dr. Rocio Bartlett MD Status:A DM IN Y Location: [place] [address] Consult Antibiotic Management Pharmacy has been consulted to manage selected antibiotic: Vancomycin Type of Intervention Type of Consult: Follow-up Labs Labs: Sodium 139 mmol/L (133-145) 10/30/24 06:24 Potassium 3.8 mmol/L (3.3-5.1) 10/30/24 06:24 Chloride 94 mmol/L (98-108) L 10/30/24 06:24 Carbon Dioxide 36.2 mmol/L (21.0-32.0) H 10/30/24 06:24 Anion Gap 9 (5-15) 10/30/24 06:24 BUN 20 mg/dL (4-19) H 10/30/24 06:24 Creatinine 0.56 mg/dL (0.70-1.20) L 10/30/24 06:24 Est GFR (MDRD) Non-Af 115 (>60) 10/30/24 06:24 BUN/Creatinine Ratio 35.1 RATIO (10-20) H 10/30/24 06:24 Glucose 130 mg/dL (70-99) H 10/30/24 06:24 Vancomycin Trough 28.8 ug/mL (5.0-15.0) H 10/30/24 14:00 Random Vancomycin 13.6 ug/mL (0.0-15.0) 10/31/24 02:25 Microbiology Microbiology: Microbiology 10/29/24 20:25 Sputum, Expectorated/Coughed Gram Stain - Final 10/29/24 11:20 Urine, Clean Catch Urine Culture - Preliminary GNR lactose banking services advisor Gram positive organism 10/29/24 11:20 Urine Catheter - Bartlett Streptococcus pneumoniae Antigen (M - Final 10/29/24 11:20 Urine Catheter - Bartlett Legionella Antigen - Final 10/29/24 15:23 Mucosa - Nasopharyngeal Respiratory Panel (PCR) - Final 10/29/24 11:04 Mucosa - Nose SARS-CoV-2, Influenza & RSV (PCR) - Final Goal Trough Goal Trough: 15-20 mcg/mL Pharmacy Plan for Drug Dosing Pharmacy Plan for Drug Dosing: Pharmacy Service will continue to monitor and adjust dosing as required. RANDOM LEVEL 13.6 @ 20.5 HOURS. START 1GM Q8H AND FOLLOW UP TROUGH PRIOR TO 4THDOSE Follow-Up Labs Follow-Up Labs: Trough: Vancomycin Date/Time Labs Ordered Labs to be done on [date and time ordered]: 11/01 @ 0300 10/31/24 0347 <Electronically signed by Boaz shore> Date _ Boaz Eugene Cosigner Signature (if applicable): Date CC: ~ Signed [facility] Work Phone: [phone]) 825-686406-17-2025 Progress note Author [facility]izio [facility] Note Date/Time October 30, 2024 5:06 pm [facility] Medical Records Department [address] [place] [address] Progress Note - Hospitalist 10/30/24 1644 MR#: [id number] Acct: [id number] Name: MELISSA ELIAS Rep #:[id number] : 1965 59 From: Maurizio Parra DO PCP: Dr. Rocio Bartlett MD Status:A DM IN Location: [place] [address] Reason for Visit Reason for Visit: Diagnoses Pneumonia, unspecified organism (10/29/24) Acute and chronic respiratory failure with hypoxia (10/29/24) Acute and chronic respiratory failure with hypercapnia (10/29/24) Subjective Subjective Patient was seen and examined today, I talked briefly with pulmonary medicine about his care. There was some conjecture that the patient's BiPAP at his alf was not functioning properly, case management/social work called the alf and went over this with them, it appears that the BiPAP is functioning properly. Patient is on programmed pain medication, I wrote for these medications for the patient. The alf will not take the patient back unless he is requiring 6 L of oxygen her last Objective Data Objective Data Vital Signs: Vital Signs Temp Pulse Resp BP Pulse Ox O2 Del Method O2 Flow Rate 98.3 F 100 22 H 149/79 H 92 High Flow 6 10/30/24 04:16 10/30/24 14:58 10/30/24 14:58 10/30/24 04:16 10/30/24 07:14 10/30/24 10:00 10/30/24 10:00 FiO2 40 10/30/24 07:03 Oxygen Flow Rate (L/min) 6 Oxygen Delivery Method High Flow Weight: 137.6 kg Body Mass Index (BMI) 47.5 Intake & Output: Intake and Output for Last 24 Hours 10/28/24 10/29/24 10/30/24 23:59 23:59 23:59 Intake Total 2530 / 2530 630 / 630 Output Total 660 / 1510 1750 / 1750 Balance 1870 / 1020 -1120 / -1120 Lab / Micro Data 10/30/24 06:24 10/30/24 06:24 Labs: Laboratory Results - last 24 hr 10/29/24 17:01: POC Glucose 123 H 10/29/24 21:40: POC Glucose 116 H 10/29/24 22:46: POC Glucose 114 H 10/30/24 06:24: WBC 7.6, RBC 3.77 L, Hgb 8.4 L, Hct 30.8 L, MCV 81.7, MCH 22.3 L, MCHC 27.3 L, RDW Std Deviation 54.3 H, RDW Coeff of Mary 18.8 H, Plt Count 232,MPV 9.7, Sodium 139, Potassium 3.8, Chloride 94 L, Carbon Dioxide 36.2 H, Anion Gap 9, BUN 20 H, Creatinine 0.56 L, Estim Creat Clear Calc 194.94, Est GFR (MDRD) Non- Af 115, BUN/Creatinine Ratio 35.1 H, Glucose 130 H, Calcium 8.4 10/30/24 08:39: POC Glucose 112 H 10/30/24 12:07: POC Glucose 188 H 10/30/24 14:00: Vancomycin Trough 28.8 H Micro: Microbiology 10/29/24 20:25 Sputum, Expectorated/Coughed Gram Stain - Final 10/29/24 11:20 Urine, Clean Catch Urine Culture - Preliminary GNR lactose banking services advisor Gram positive organism 10/29/24 11:20 Urine Catheter - Bartlett Streptococcus pneumoniae Antigen (M - Final 10/29/24 11:20 Urine Catheter - Bartlett Legionella Antigen - Final 10/29/24 15:23 Mucosa - Nasopharyngeal Respiratory Panel (PCR) - Final 10/29/24 11:04 Mucosa - Nose SARS-CoV-2, Influenza & RSV (PCR) - Final Physical Exam Const alert, oriented x3 and no apparent distress Constitutional Narrative: Patient has class III obesity General Appearance: cooperative, well kempt and well developed Orientation / Consciousness: awake, oriented to person, oriented to place and oriented to time HEENT normocephalic, head/scalp atraumatic and moist oral mucous membranes Eyes PERRL, EOMs intact bilaterally and conjunctivae normal Neck supple, no JVD, thyroid normal and no carotid bruits General: trachea midline Resp normal respiratory effort, no retractions, no use of accessory muscles and clearto auscultation bilaterally Auscultation: Negative for rales, rhonchi or wheezes Cardio regular rate, regular rhythm, S1 normal heart sound, S2 normal heart sound, no murmurs, no rub and no gallops GI normal to inspection, nondistended, normoactive bowel sounds, soft to palpation,non-tender and non-distended Extremity General Extremity: edema bilateral Skin Skin Narrative: Patient has stage IV pressure injury to sacrum and buttocks area, he has stage II pressure injury to left heel and right lateral foot-please see wound care nurse documentation Neuro oriented x3 and CN's II-XII intact bilaterally Neuro Narrative: Patient has paraplegia Sensorium / Orientation: awake and alert Speech: speech normal Psych affect normal Assessment & Plan Assessment/Plan (1) Acute on chronic respiratory failure with hypoxia and hypercapnia: PLAN: Plan 1. Acute on chronic hypoxic and hypercapnic respiratory failure in the setting of suspected healthcare associated pneumonia-patient will remain on aerosol treatments and IV antibiotics, pulmonary medicine is participating in his care, pulse ox will be monitored #2 Healthcare associated pneumonia-patient will remain on his present antibiotics #3 pressure injuries to right buttocks-stage IV, sacrum, stage II right lateral foot, stage II left heel-wound care nurse is directing wound care-complicates care, management, recovery, and prognosis #4 paraplegia-complicates care, management, recovery, and prognosis #5 essential hypertension-patient will remain on his present medications #6 chronic pain syndrome-patient is on programmed MS Contin and oxycodone #7 type 2 diabetes-patient's blood sugars will be monitored, sliding scale insulin will be administered, patient is on basal insulin and regular insulin (with each meal) #8 class III obesity-complicates care, management, recovery, and prognosis Total clinical time spent by myself addressing the patient's medical issues, reviewing all of his data, and collaborating with the patient's care team: 50- minutes Charges/Coding Visit Charges Inpatient E&M: 87018 Subs Hosp L3 10/30/24 1706 <Electronically signed by Maurizio Parra DO> Cosigner Signature (if applicable): CC: ~ Signed [facility] Work Phone: [phone] 491-901506-17-2025 Consult note Author Darcy Gaitan [facility] Note Date/Time October 30, 2024 4:43 pm [facility] Medical Records Department [address] [place] [id number] Pharmacokinetic/Renal -Consult 10/30/24 1521 MR#: [id number] Acct: [id number] Name: MELISSA ELIAS Rep #:[id number] : 1965 59 From: Darcy Gaitan PCP: Dr. Rocio Bartlett MD Status:A DM IN Y Location: [place] [address] Consult Antibiotic Management Pharmacy has been consulted to manage selected antibiotic: Vancomycin Type of Intervention Type of Consult: Follow-up Suspected Infection Suspected Infection: Pneumonia Labs Labs: Sodium 139 mmol/L (133-145) 10/30/24 06:24 Potassium 3.8 mmol/L (3.3-5.1) 10/30/24 06:24 Chloride 94 mmol/L (98-108) L 10/30/24 06:24 Carbon Dioxide 36.2 mmol/L (21.0-32.0) H 10/30/24 06:24 Anion Gap 9 (5-15) 10/30/24 06:24 BUN 20 mg/dL (4-19) H 10/30/24 06:24 Creatinine 0.56 mg/dL (0.70-1.20) L 10/30/24 06:24 Est GFR (MDRD) Non-Af 115 (>60) 10/30/24 06:24 BUN/Creatinine Ratio 35.1 RATIO (10-20) H 10/30/24 06:24 Glucose 130 mg/dL (70-99) H 10/30/24 06:24 Vancomycin Trough 28.8 ug/mL (5.0-15.0) H 10/30/24 14:00 Microbiology Microbiology: Microbiology 10/29/24 20:25 Sputum, Expectorated/Coughed Gram Stain - Final 10/29/24 11:20 Urine, Clean Catch Urine Culture - Preliminary GNR lactose banking services advisor Gram positive organism 10/29/24 11:20 Urine Catheter - Bartlett Streptococcus pneumoniae Antigen (M - Final 10/29/24 11:20 Urine Catheter - Bartlett Legionella Antigen - Final 10/29/24 15:23 Mucosa - Nasopharyngeal Respiratory Panel (PCR) - Final 10/29/24 11:04 Mucosa - Nose SARS-CoV-2, Influenza & RSV (PCR) - Final Pharmacy Plan for Drug Dosing Pharmacy Plan for Drug Dosing: VANCOMYCIN LEVEL RECEIVED Current Vancomycin Dose: 1500MG Q8 Number of Doses Received: 3 Vancomycin Level: 28.8 MG/DL Hours Since Last Dose: 8.5 Renal Function: SCr 0.56 mg/dL, 194 mL/min Renal Function Trend: stable Lab/Micro: sputum cx pending, urine cx with GN lactose (+) and gram (+) organism Vancomycin Plan/Comments: 8.5 hour trough is supratherapeutic at 28.8 mg/dl (goal 15-20). Will hold further dosing at this time and order a random level in 12 hours. Pending Level: 10/31/24 @ 0200 - random Pharmacy Service will continue to monitor and adjust dosing as required. 10/30/24 1522 <Electronically signed by Darcy Gaitan> Date _ Darcy Gaitan 10/30/24 1643 <Electronically signed by Maurizio manzanares DO> Cosigner Signature (if applicable): Date AidaMaurizio CC: ~ Signed [facility] Work Phone: [phone] Consult note Author Tez Tuttle [facility] Note Date/Time October 30, 2024 8:44 am [facility] Medical Records Department [address] [place] [address] Consultation - Box Feeder 10/30/24 0709 MR#: [id number] Acct: [id number] Name: MELISSA ELIAS Rep #:[id number] : 1965 59 From: Tez Tuttle DO PCP: Dr. Rocio aBrtlett MD Status:A DM IN Location: [place] [id number] Assessment & Plan Assessment/Plan (1) Acute on chronic respiratory failure with hypoxia and hypercapnia: PLAN: Plan RECOMMENDATIONS: 1. Continue to wean supplemental oxygen to maintain saturation is 88 to 92%. 2. BiPAP therapy with naps and nightly. 3. Continue empiric broad-spectrum antimicrobials, pending culture results. 4. Aggressive bronchopulmonary hygiene. 5. Diuretics per home regimen. 6. Case management/social work to assist in acquiring new BiPAP for nursing facility. IMPRESSIONS: 1. Acute on chronic combined respiratory failure The patient was recently hospitalized with human metapneumovirus infection with secondary bacterial pneumonia. He presented to the hospital with worsening hypoxemia with radiographic evidence of a persistent right lower lobe consolidation and atelectasis. At this time, I agree with continuing empiric broad-spectrum antimicrobials to cover for healthcare associated pneumonia. Cultures are currently pending. In addition to the aforementioned, the patient's urinalysis was also concerning for possible infection as well. The patient is currently maintaining appropriate oxygen saturations on 6 L/min, but indicated that he was requiring 5 L/min at his baseline. Unfortunately, the patient does have a known history of sleep apnea, but indicated that his BiPAP machine is no longer functional. I would recommend that we continue aggressive bronchopulmonary hygiene and utilize BiPAP therapy with naps and nightly to assist with alveolar recruitment. 2. Obstructive sleep apnea/alveolar hypoventilation secondary to obesity Continue BiPAP support with naps and nightly. Prior to discharge, the patient will need to be set up for a new BiPAP machine to be delivered to his nursing facility. 3. History of paraplegia related to L1 injury/chronic pain syndrome/morbid obesity Complicates care, management, recovery and prognosis. Continue supportive measures as noted above along with BiPAP therapy, per outpatient regimen. This note was generated with [employer] dictation software. It may contain incorrectwords, spelling, and punctuation that were not noted in checking the note beforesigning. HPI Consult Data Date of Consult: 10/30/24 HPI Narrative Reason for Consultation: Acute on chronic hypoxemic respiratory failure HPI Narrative: The patient is a 59-year-old male, with a history as outlined below, who presented to the emergency department via EMS on October 29 with worsening hypoxemia. The patient was recently admitted to the hospital October 12 through with dyspnea and hypoxemia, which was felt to be secondary to human metapneumovirus infection and secondary bacterial pneumonia. At the time of hisdischarge from the hospital, the patient was requiring 7 L/min via nasal cannula. The patient reported that following his discharge from the hospital, the alf was able to wean his oxygen to 5 L/min. Although he does have a known history of obstructive sleep apnea, he reported that his BiPAP machine is no longer functional and that his nursing facility has not made any attempt to replace the machine or fix the issue. He does report the presence of a productive cough of purulent sputum. On presentation to the emergency department, the patient was documented to be afebrile and hemodynamically stable. He was initially requiring 8 L/min of supplemental oxygen to maintain appropriate saturations. Laboratory evaluation revealed a normal white blood cell count. ABG was notable for a pH of 7.35 witha pCO2 of 67 and pO2 of 61. Chemistry profile was notable for a bicarbonate of 39 and creatinine of 0.69. Lactate was within normal limits. Troponin was elevated at 113 with a BNP of 108. Urine analysis was positive for nitrites, leukocyte esterase and 1+ urine bacteria. Blood, urine and sputum cultures werecollected. CT imaging of the chest without contrast demonstrated a dense consolidation in the right lower lobe, which appears somewhat larger than the previously noted consolidation on chest imaging on October 12. The patient was subsequently placed back on antimicrobial therapy and admitted to the progressive care unit. The patient was maintained on AVAPS therapy overnight. [facility] Medical History VRE (vancomycin resistant enterococcus) culture positive Decubitus ulcer of sacral region, stage 4 Lymphedema BATOOL treated with BiPAP Abscess of back Constipation Pressure ulcer of sacral region Chronic indwelling Bartlett catheter Blood loss anemia Clot retention of urine Pressure injury, unstageable, with eschar Bilateral pulmonary embolism Rhabdomyolysis Community acquired pneumonia Hypoglycemia Acute osteomyelitis of spine Former tobacco use Paraplegia Cellulitis of leg without foot, right Anemia BMI greater than 40 Type 2 diabetes mellitus HTN (hypertension) H/o back surgery Home Medications ?Medication ?Instructions ?Recorded ?Last Taken ?Type fluticasone propionate 50 1 spray intranasal DAILY haim rtness 03/03/20 Unknown History mcg/actuation nasal of breath spray,suspension (Flonase Allergy Relief) apixaban 5 mg tablet (Eliquis) 5 mg PO BID 07/29/23 History methocarbamol 500 mg tablet 1,000 mg PO BID PRN cramps 07/29/23 08/31/23 History polyethylene glycol 3350 17 17 g PO BID constipation 0 07/29/23 07/29/23 History gram/dose oral powder (ClearLax) pantoprazole 40 mg tablet,delayed 40 mg PO DAILY stoma ch 08/31/23 08/31/23 History release aluminum-mag hydroxide-simethicone 30 ml PO Q6H PRN AK N Gastric 09/13/23 Unknown Rx 400 mg-400 mg-40 mg/5 mL oral susp Burning #0 mL (Mag-Al Plus Extra Strength) amlodipine 10 mg tablet 10 mg PO DAILY #0 tabs 09/12 Unknown Rx carvedilol 12.5 mg tablet 12.5 mg PO BIDCM #0 tabs Unknown Rx diphenhydramine HCl 25 mg capsule 25 mg PO TID PRN PRN Itching #0 09/13/23 Unknown Rx (Banophen) caps peg [id number] 1 1 drp EACH EYE BID dry eyes #0 mL 09/13/23 Unknown Rx %-0.2 %-0.2 % eye drops (Artificial Tears ([id number])) polysaccharide iron complex 150 mg 150 mg PO .QOD supp lement 10/15/23 Unknown History iron capsule (Ferrex) sennosides 8.6 mg-docusate sodium 2 tab PO BID Constip ation 10/15/23 Unknown History 50 mg tablet (Stool Softener-Stimulant Laxative) insulin lispro 100 unit/mL See Protocol subcut ACHS bl ood 10/23/23 Unknown History subcutaneous pen (Humalog KwikPen sugars (U-100) Insulin) loratadine 10 mg tablet 10 mg PO DAILY allergies 02/06 Unknown History (Allerclear) albuterol sulfate 2.5 mg/3 mL 2.5 mg inhalation BID wh eezing 10/25/23 Unknown History (0.083 %) solution for nebulization arginine 7 gram-glutamine 7 1 ea PO BID wound healing 03/22/24 Unknown History gram-calcium HMB 1.5 gram oral powder pack (Wiliam) amino acids-protein hydrolysate 15 30 ml PO BID Unknown History gram-100 kcal/30 mL oral liquid (Pro-Stat Sugar Free) ascorbic acid (vitamin C) 500 mg 500 mg PO QODAY suppl ement 03/26/24 Unknown History tablet chlorhexidine gluconate 4 % 1 applic topical .twice a week 03/26/24 Unknown History topical liquid (Hibiclens) unknown dextrose 40 % oral gel (Glucose 10 g PO Q15M PRN hypog lycemia 03/26/24 Unknown History Gel) naloxone 0.4 mg/mL injection 0.4 mg IM Q5M PRN opioid reversal 03/26/24 Unknown History syringe ondansetron 4 mg disintegrating 4 mg PO Q4H PRN nausea 03/26/24 Unknown History tablet sodium chloride 0.65 % nasal mist 2 spray intranasal Q 2H PRN dry 03/26/24 Unknown History nasal passages dulaglutide 3 mg/0.5 mL 3 mg subcut QWEEK diabetes 0 07/18/24 Unknown History subcutaneous pen injector (Trulicity) duloxetine 30 mg capsule,delayed 60 mg PO QDAY mood 10/28/24 History release insulin glargine 100 unit/mL 14 unit subcut DAILY diab etes 07/18/24 Unknown History subcutaneous solution (Lantus mellitus type 2 U-100 Insulin) insulin lispro 100 unit/mL 12 unit subcut .ac diabetes 07/18/24 Unknown History subcutaneous solution metformin 500 mg tablet 1,000 mg PO BID diabetes 10/07 Unknown History fenofibrate 54 mg tablet 54 mg PO QHS cholesterol 09/07 Unknown History nystatin 100,000 unit/gram topical 1 applic topical TI D rednes 08/17/24 Unknown History powder morphine 30 mg capsule,extended 30 mg PO Q12H pain 30 days #60 caps 10/10/24 Unknown Rx release pellets ([place]) acetaminophen 325 mg capsule 650 mg PO Q6H pain Unknown History acetic acid 0.25 % irrigation 30 ml irrigation BID sup rapubic 10/12/24 Unknown History solution cath artificial 1 drp EACH EYE BID PRN dry e yes 10/12/24 Unknown History tears(fgvocoj-hkfgvmla-uyslqot) 0.1 %-0.3 %-0.2 % eye drops (GenTeal Tears Moderate) glipizide 2.5 mg tablet, extended 2.5 mg PO DAILY diab etes 10/12/24 Unknown History release 24 hr simethicone 80 mg chewable tablet 80 mg PO .ACTID PRN gas 10/12/24 Unknown History (Gas Relief (simethicone)) sodium hypochlorite 0.25 % 1 applic topical BID wound 10/12/24 Unknown History solution (Dakin's Solution) furosemide 20 mg tablet 40 mg (2 x 20 mg) PO BID #30 tabs 10/16/24 Unknown Rx lorazepam 1 mg tablet 1 mg PO DAILY PRN anxiety #7 tabs 10/16/24 Unknown Rx oxycodone 10 mg tablet 5 mg PO .QID pain 10/29/24 U nknown History Allergy/AdvReac Type Severity Reaction Status Date / Time No Known Allergies Allergy Verified 10/12/24 07:34 Family History Mother Hypertension Hypotension Diabetes Arthritis Father Hypertension Hypotension Heart disease Status post double vessel coronary artery bypass angina Arthritis Grandfather Prostate cancer Grandmother Uterine cancer Surgical History History of hip replacement Colostomy status Hx of spinal surgery H/O sinus surgery Social History housing: alf current occupational status: employed and retired Smoking Status: Former smoker alcohol intake: never substance use type: does not use do you feel safe at home: Yes ROS ROS Narrative 10 systems were reviewed with pertinent positives as noted in the HPI above. Physical Exam Const alert, oriented x3 and no apparent distress Constitutional Narrative: Morbidly obese. General Appearance: cooperative HEENT normocephalic, head/scalp atraumatic and moist oral mucous membranes Eyes PERRL, EOMs intact bilaterally and conjunctivae normal Neck supple General: trachea midline Chest inspection of chest normal Resp Auscultation: diminished lung sounds; Negative for rales, rhonchi or wheezes Cardio regular rate and regular rhythm GI soft to palpation and non-tender Extremity no clubbing, cyanosis or edema Skin no rashes or lesions noted Neuro CN's II-XII intact bilaterally Psych cooperative and affect normal Lab / Micro Data 10/30/24 06:24 10/30/24 06:24 Labs: Laboratory Results - last 24 hr 10/29/24 10:33: WBC 8.6, RBC 3.94 L, Hgb 9.2 L, Hct 32.7 L, MCV 83.0, MCH 23.4 L, MCHC 28.1 L, RDW Std Deviation 53.9 H, RDW Coeff of Mary 18.5 H, Plt Count 264,MPV 9.8, Immature Gran % (Auto) 0.300, Neut % (Auto) 65.6, Lymph % (Auto) 20.8, Hayes % (Auto) 9.3, Eos % (Auto) 3.5, Baso % (Auto) 0.5, Absolute Neuts (auto) 5.7, Absolute Lymphs (auto) 1.79, Nucleated RBC % 0, PT 15.9 H, INR 1.2, APTT 33.6, Sodium 139, Potassium 4.1, Chloride 92 L, Carbon Dioxide 38.9 H, Anion Gap8, BUN 24 H, Creatinine 0.69 L, Estim Creat Clear Calc 165.16, Est GFR (MDRD) Non-Af 108, BUN/Creatinine Ratio 34.7 H, Glucose 237 H, Lactic Acid 2.0, Calcium8.7, Total Bilirubin 0.39, AST 19, ALT 14, Alkaline Phosphatase 81, Troponin T High Sens 113 H*, NT pro BNP II 108, Total Protein 7.8, Albumin 3.6, Globulin 4.2, Albumin/Globulin Ratio 0.9 10/29/24 11:20: Urine Color Yellow, Urine Clarity Clear, Urine pH 6.0, Ur Specific [place] 1.010, Urine Protein 100 H, Urine Glucose (UA) Normal, Urine Ketones Negative, Urine Occult Blood 25 H, Urine Nitrite Positive H, Urine Bilirubin Negative, Urine Urobilinogen Normal, Ur Leukocyte Esterase 500 H, Urine RBC 0-5 SEEN, Urine WBC 0-5 SEEN, Ur Squamous Epith Cells 0 SEEN, Urine Bacteria 1+, Urine Mucus 0 SEEN 10/29/24 12:24: Troponin T Hi Sens 2 Hr 109 H* 10/29/24 14:28: Troponin T Hi Sens 4Hr 105 H* 10/29/24 15:42: Lactic Acid 1.6 10/29/24 17:01: POC Glucose 123 H 10/29/24 21:40: POC Glucose 116 H 10/29/24 22:46: POC Glucose 114 H 10/30/24 06:24: WBC 7.6, RBC 3.77 L, Hgb 8.4 L, Hct 30.8 L, MCV 81.7, MCH 22.3 L, MCHC 27.3 L, RDW Std Deviation 54.3 H, RDW Coeff of Mary 18.8 H, Plt Count 232,MPV 9.7 Micro: Microbiology 10/29/24 11:20 Urine Catheter - Bartlett Streptococcus pneumoniae Antigen (M - Final 10/29/24 11:20 Urine Catheter - Bartlett Legionella Antigen - Final 10/29/24 15:23 Mucosa - Nasopharyngeal Respiratory Panel (PCR) - Final 10/29/24 11:04 Mucosa - Nose SARS-CoV-2, Influenza & RSV (PCR) - Final ABG Data ABG results: ABG 10/29/24 10:36 Specimen Type ART Sample Site R Brach pH 7.35 Bicarbonate Actual 37.2 H Total CO2 39 Base Excess 12 H O2 Saturation 89 L O2 % 8.0 ABG pCO2 66.8 H ABG pO2 61 L O2 Delivery Device Cannula Vent Mode Not entered Imaging Radiology Impression Chest X-Ray 10/29/24 11:30 IMPRESSION: Pneumonia and right pleural effusion. Reading Location: [facility] Chest CT 10/29/24 14:08 IMPRESSION: Coronary artery calcification (CAC) is is present Dense consolidation in the right lower lobe. Questionable prominence of the right hilum with narrowing of the right interlobar artery. Radiographic follow-up recommended. Reading Location: [place] [address] Charges/Coding Visit Charges Inpatient E&M: 07474 Init Hosp L3 10/30/24 0844 <Electronically signed by Tez Tuttle DO> Cosigner Signature (if applicable): CC: Dr. Percy Price DO; Dr. Rocio Bartlett MD~ Signed [facility] Work Phone: [phone] History and physical note Author Percy Price [facility] Note Date/Time October 30, 2024 12:3 9am [facility] Medical Records Department [address] [place] [place] [address] H&P Exam - Hospitalist 10/29/24 1430 MR#: [id number] Acct: [id number] Name: MELISSA ELIAS Rep #:[id number] : 1965 59 From: Percy pickard DO PCP: Dr. Rocio Bartlett MD Status:A DM IN Location: [facility] [id number] HPI - General General Date of Admission: 10/29/24 Date of Service: 10/29/24 Chief Complaint: Worsening hypoxia HPI Narrative MELISSA ELIAS, is a 59 M who presented to [facility] ED on 10/29/2024 from SNF for worsening hypoxia. Patient was recently hospitalized here from 10/12-10/16 for acute hypoxic respiratory failure secondary to human metapneumovirus infection with concern for superimposed bacterial pneumonia and acute on chronic heart failure. Medical history significant for paraplegia, class III obesity, BATOOL, chronic anemia and type 2 diabetes. His oxygen requirements improved with treatment then and he was discharged to SNF on 5 L nasal cannula. He came back to the ED today for worsening hypoxia noted by nursing staff, though patient denied any worsening shortness of breath at rest. Was requiring 8 L high flow nasal cannula in the ED to maintain appropriate oxygen saturations. CT chest showed a dense consolidation in the right lower lobe new from previous CT chest at the end of September. ABG showed pH 7.35, pCO2 66. Patient was placed on BiPAP with some improvement in oxygenation and hospitalist was contacted for admission. I saw the patient at bedside in the ED. He was still wearing BiPAP when I saw him and was tolerating this without issue. Has history of BATOOL and wears BiPAP at night. Denies any chest pain or discomfort currently. Does report an ongoing productive cough with yellowish sputum production over the past several days. Denies any fevers or chills. No other acute concerns currently. Will be admitted for further management. [facility] Medical History VRE (vancomycin resistant enterococcus) culture positive Decubitus ulcer of sacral region, stage 4 Lymphedema BATOOL treated with BiPAP Abscess of back Constipation Pressure ulcer of sacral region Chronic indwelling Bartlett catheter Blood loss anemia Clot retention of urine Pressure injury, unstageable, with eschar Bilateral pulmonary embolism Rhabdomyolysis Community acquired pneumonia Hypoglycemia Acute osteomyelitis of spine Former tobacco use Paraplegia Cellulitis of leg without foot, right Anemia BMI greater than 40 Type 2 diabetes mellitus HTN (hypertension) H/o back surgery Home Medications ?Medication ?Instructions ?Recorded ?Last Taken ?Type fluticasone propionate 50 1 spray intranasal DAILY haim rtness 03/03/20 Unknown History mcg/actuation nasal of breath spray,suspension (Flonase Allergy Relief) apixaban 5 mg tablet (Eliquis) 5 mg PO BID 07/29/23 History methocarbamol 500 mg tablet 1,000 mg PO BID PRN cramps 07/29/23 08/31/23 History polyethylene glycol 3350 17 17 g PO BID constipation 0 07/29/23 07/29/23 History gram/dose oral powder (ClearLax) pantoprazole 40 mg tablet,delayed 40 mg PO DAILY stoma ch 08/31/23 08/31/23 History release aluminum-mag hydroxide-simethicone 30 ml PO Q6H PRN AK N Gastric 09/13/23 Unknown Rx 400 mg-400 mg-40 mg/5 mL oral susp Burning #0 mL (Mag-Al Plus Extra Strength) amlodipine 10 mg tablet 10 mg PO DAILY #0 tabs 09/12 Unknown Rx carvedilol 12.5 mg tablet 12.5 mg PO BIDCM #0 tabs Unknown Rx diphenhydramine HCl 25 mg capsule 25 mg PO TID PRN PRN Itching #0 09/13/23 Unknown Rx (Banophen) caps peg [id number]-[id number]-[id number] 1 1 drp EACH EYE BID dry eyes #0 mL 09/13/23 Unknown Rx %-0.2 %-0.2 % eye drops (Artificial Tears ([id number])) polysaccharide iron complex 150 mg 150 mg PO .QOD supp lement 10/15/23 Unknown History iron capsule (Ferrex) sennosides 8.6 mg-docusate sodium 2 tab PO BID Constip ation 10/15/23 Unknown History 50 mg tablet (Stool Softener-Stimulant Laxative) insulin lispro 100 unit/mL See Protocol subcut ACHS bl ood 10/23/23 Unknown History subcutaneous pen (Humalog KwikPen sugars (U-100) Insulin) loratadine 10 mg tablet 10 mg PO DAILY allergies 02/06 Unknown History (Allerclear) albuterol sulfate 2.5 mg/3 mL 2.5 mg inhalation BID wh eezing 10/25/23 Unknown History (0.083 %) solution for nebulization arginine 7 gram-glutamine 7 1 ea PO BID wound healing 03/22/24 Unknown History gram-calcium HMB 1.5 gram oral powder pack (Wiliam) amino acids-protein hydrolysate 15 30 ml PO BID Unknown History gram-100 kcal/30 mL oral liquid (Pro-Stat Sugar Free) ascorbic acid (vitamin C) 500 mg 500 mg PO QODAY suppl ement 03/26/24 Unknown History tablet chlorhexidine gluconate 4 % 1 applic topical .twice a week 03/26/24 Unknown History topical liquid (Hibiclens) unknown dextrose 40 % oral gel (Glucose 10 g PO Q15M PRN hypog lycemia 03/26/24 Unknown History Gel) naloxone 0.4 mg/mL injection 0.4 mg IM Q5M PRN opioid reversal 03/26/24 Unknown History syringe ondansetron 4 mg disintegrating 4 mg PO Q4H PRN nausea 03/26/24 Unknown History tablet sodium chloride 0.65 % nasal mist 2 spray intranasal Q 2H PRN dry 03/26/24 Unknown History nasal passages dulaglutide 3 mg/0.5 mL 3 mg subcut QWEEK diabetes 0 07/18/24 Unknown History subcutaneous pen injector (Trulicity) duloxetine 30 mg capsule,delayed 60 mg PO QDAY mood 10/28/24 History release insulin glargine 100 unit/mL 14 unit subcut DAILY diab etes 07/18/24 Unknown History subcutaneous solution (Lantus mellitus type 2 U-100 Insulin) insulin lispro 100 unit/mL 12 unit subcut .ac diabetes 07/18/24 Unknown History subcutaneous solution metformin 500 mg tablet 1,000 mg PO BID diabetes 10/07 Unknown History fenofibrate 54 mg tablet 54 mg PO QHS cholesterol 09/07 Unknown History nystatin 100,000 unit/gram topical 1 applic topical TI D rednes 08/17/24 Unknown History powder morphine 30 mg capsule,extended 30 mg PO Q12H pain 30 days #60 caps 10/10/24 Unknown Rx release pellets ([place]) acetaminophen 325 mg capsule 650 mg PO Q6H pain Unknown History acetic acid 0.25 % irrigation 30 ml irrigation BID sup rapubic 10/12/24 Unknown History solution cath artificial 1 drp EACH EYE BID PRN dry e yes 10/12/24 Unknown History tears(sytodno-hrwtyfyi-aspbdjj) 0.1 %-0.3 %-0.2 % eye drops (GenTeal Tears Moderate) glipizide 2.5 mg tablet, extended 2.5 mg PO DAILY diab etes 10/12/24 Unknown History release 24 hr simethicone 80 mg chewable tablet 80 mg PO .ACTID PRN gas 10/12/24 Unknown History (Gas Relief (simethicone)) sodium hypochlorite 0.25 % 1 applic topical BID wound 10/12/24 Unknown History solution (Dakin's Solution) furosemide 20 mg tablet 40 mg (2 x 20 mg) PO BID #30 tabs 10/16/24 Unknown Rx lorazepam 1 mg tablet 1 mg PO DAILY PRN anxiety #7 tabs 10/16/24 Unknown Rx oxycodone 10 mg tablet 5 mg PO .QID pain 10/29/24 U nknown History Allergy/AdvReac Type Severity Reaction Status Date / Time No Known Allergies Allergy Verified 10/12/24 07:34 Family History Mother Hypertension Hypotension Diabetes Arthritis Father Hypertension Hypotension Heart disease Status post double vessel coronary artery bypass angina Arthritis Grandfather Prostate cancer Grandmother Uterine cancer Surgical History History of hip replacement Colostomy status Hx of spinal surgery H/O sinus surgery Social History housing: alf current occupational status: employed and retired Smoking Status: Former smoker alcohol intake: never substance use type: does not use do you feel safe at home: Yes ROS Constitutional Constitutional: Reports fatigue; Denies chills, fever(s) or weakness Eyes Eyes: Denies change in vision Cardiovascular Cardiovascular: Denies chest pain, edema or lightheadedness Respiratory/Chest Respiratory/Chest: Reports cough and productive cough; Denies shortness of breath at rest or wheezing Gastrointestinal Gastrointestinal: Denies abdominal pain Genitourinary Genitourinary: Denies dysuria Musculoskeletal Musculoskeletal: Denies arthralgias or myalgias Vital Signs Vital Signs Vital Signs: 10/29/24 10:22 10/29/24 10:22 10/29/24 10:27 Temperature 98.4 F 98.4 F Temperature Source Oral Oral Pulse Rate 106 H 102 H Respiratory Rate 21 H 20 H Respiratory Effort Respiratory Depth Respiratory Pattern Blood Pressure 121/71 H 129/111 H Blood Pressure Mean 87 117 Pulse Ox 84 87 92 Oxygen Delivery Method Nasal Cannula High Flow High Flow Oxygen Flow Rate (L/min) 6 8 8 Fraction of Inspired Oxygen (FIO2) 10/29/24 10:31 10/29/24 10:51 10/29/24 10:51 Temperature Temperature Source Pulse Rate 101 H Respiratory Rate 15 Respiratory Effort Normal Respiratory Depth Normal Respiratory Pattern Normal Blood Pressure 122/71 H Blood Pressure Mean 88 Pulse Ox 95 Oxygen Delivery Method High Flow High Flow Room Air Oxygen Flow Rate (L/min) 8 8 Fraction of Inspired Oxygen (FIO2) 10/29/24 11:09 10/29/24 11:27 10/29/24 12:00 Temperature 98.6 F 98.1 F Temperature Source Oral Oral Pulse Rate 101 H 98 Respiratory Rate 16 16 Respiratory Effort Respiratory Depth Respiratory Pattern Blood Pressure 130/77 H 104/79 Blood Pressure Mean 94 87 Pulse Ox 92 91 91 Oxygen Delivery Method Nasal Cannula High Flow High Flow Oxygen Flow Rate (L/min) 6 8 8 Fraction of Inspired Oxygen (FIO2) 10/29/24 13:00 10/29/24 13:41 10/29/24 14:00 Temperature 98.1 F 98.2 F 98 F Temperature Source Oral Oral Pulse Rate 100 99 99 Respiratory Rate 18 12 22 H Respiratory Effort Respiratory Depth Respiratory Pattern Blood Pressure 120/71 120/71 112/58 L Blood Pressure Mean 87 87 76 Pulse Ox 90 93 88 Oxygen Delivery Method High Flow High Flow Oxygen Flow Rate (L/min) 6 6 Fraction of Inspired Oxygen (FIO2) 10/29/24 14:15 10/29/24 14:23 Temperature Temperature Source Pulse Rate 99 Respiratory Rate 20 H Respiratory Effort Respiratory Depth Respiratory Pattern Blood Pressure Blood Pressure Mean Pulse Ox 94 93 Oxygen Delivery Method Bi-pap Oxygen Flow Rate (L/min) Fraction of Inspired Oxygen (FIO2) 40 40 Weight Weight: 148 kg Body Mass Index (BMI) 51.0 Physical Exam Const alert, oriented x3 and no apparent distress Constitutional Narrative: Upper middle-aged male, class III obesity, mildly fatigued appearing but otherwise sitting back comfortably in bed, breathing comfortably on BiPAP, answering questions with short appropriate responses, in no acute distress. General Appearance: cooperative and comfortable HEENT normocephalic, head/scalp atraumatic, hearing grossly normal bilaterally, nasal mucous membranes and turbinates normal and moist oral mucous membranes Eyes PERRL, EOMs intact bilaterally and conjunctivae normal Neck full ROM Chest inspection of chest normal Resp normal respiratory effort and no use of accessory muscles Resp Narrative: Breathing comfortably on BiPAP at rest. Diminished breath sounds particularly in right lung base with mild basilar crackles noted. No wheezing noted. Cardio no murmurs and peripheral pulses 2+ throughout Cardio Narrative: Tachycardic, regular rhythm. GI normal to inspection, nondistended, normoactive bowel sounds, soft to palpation,non-tender and non-distended Back/Spine normal ROM Extremity Extremity Narrative: Paraplegic. Skin Skin Narrative: Nursing staff reported sacral ulcer without signs of acute infection. Neuro Speech: speech normal Motor Exam: strength 5/5 throughout Psych mental status grossly normal Results Lab / Micro Data 10/29/24 10:33 10/29/24 10:33 Labs: Laboratory Results - last 24 hr 10/29/24 10:33: WBC 8.6, RBC 3.94 L, Hgb 9.2 L, Hct 32.7 L, MCV 83.0, MCH 23.4 L, MCHC 28.1 L, RDW Std Deviation 53.9 H, RDW Coeff of Mary 18.5 H, Plt Count 264,MPV 9.8, Immature Gran % (Auto) 0.300, Neut % (Auto) 65.6, Lymph % (Auto) 20.8, Hayes % (Auto) 9.3, Eos % (Auto) 3.5, Baso % (Auto) 0.5, Absolute Neuts (auto) 5.7, Absolute Lymphs (auto) 1.79, Nucleated RBC % 0, PT 15.9 H, INR 1.2, APTT 33.6, Sodium 139, Potassium 4.1, Chloride 92 L, Carbon Dioxide 38.9 H, Anion Gap8, BUN 24 H, Creatinine 0.69 L, Estim Creat Clear Calc 165.16, Est GFR (MDRD) Non-Af 108, BUN/Creatinine Ratio 34.7 H, Glucose 237 H, Lactic Acid 2.0, Calcium8.7, Total Bilirubin 0.39, AST 19, ALT 14, Alkaline Phosphatase 81, Troponin T High Sens 113 H*, NT pro BNP II 108, Total Protein 7.8, Albumin 3.6, Globulin 4.2, Albumin/Globulin Ratio 0.9 10/29/24 11:20: Urine Color Yellow, Urine Clarity Clear, Urine pH 6.0, Ur Specific [place] 1.010, Urine Protein 100 H, Urine Glucose (UA) Normal, Urine Ketones Negative, Urine Occult Blood 25 H, Urine Nitrite Positive H, Urine Bilirubin Negative, Urine Urobilinogen Normal, Ur Leukocyte Esterase 500 H, Urine RBC 0-5 SEEN, Urine WBC 0-5 SEEN, Ur Squamous Epith Cells 0 SEEN, Urine Bacteria 1+, Urine Mucus 0 SEEN 10/29/24 12:24: Troponin T Hi Sens 2 Hr 109 H* Micro: Microbiology 10/29/24 11:04 Mucosa - Nose SARS-CoV-2, Influenza & RSV (PCR) - Final ABG Data ABG results: ABG 10/29/24 10:36 Specimen Type ART Sample Site R Brach pH 7.35 Bicarbonate Actual 37.2 H Total CO2 39 Base Excess 12 H O2 Saturation 89 L O2 % 8.0 ABG pCO2 66.8 H ABG pO2 61 L O2 Delivery Device Cannula Vent Mode Not entered Imaging Radiology Impression Chest X-Ray 10/29/24 11:30 IMPRESSION: Pneumonia and right pleural effusion. Reading [facility] Assessment & Plan Assessment/Plan (1) Acute on chronic respiratory failure with hypoxia and hypercapnia: (2) Pneumonia: PLAN: Plan Patient is a 59-year-old male who presented [facility] ED on 10/29/2024 with worsening hypoxia. 1. Acute on chronic hypoxic and hypercapnic respiratory failure in setting of suspected healthcare associated pneumonia versus mucous plugging with atelectasis ? Admit under inpatient status to PCU. Pulmonology consulted. Recent hospitalization for viral pneumonia secondary to human metapneumovirus with concern for concomitant bacterial pneumonia and HFpEF exacerbation. Treated with IV antibiotics and diuresis with improvement. Was able to be discharged toSNF on 5 L nasal cannula. Requiring 8 L high flow nasal cannula on admit to maintain appropriate oxygen saturations. CT chest showed dense consolidation inright lower lobe new from previous CT chest in late September. Has had productive cough with yellowish sputum. However, denies fevers/chills or other infectious symptoms and no leukocytosis on labs. May be healthcare associated ammonia but cannot rule out mucous plugging with atelectasis from poor clearance of secretions. Will treat with IV vancomycin and Zosyn for now. Infectious workuppending. Will also treat with I-S, chest physiotherapy, Mucinex and scheduled DuoNebs. Wean supplemental oxygen as able. Appreciate pulmonology recommendations. 2. Acute on chronic debility with history of paraplegia ? PT/OT/case management consulted. Was discharged to SNF for rehab after recenthospitalization. Suspect patient will need to go back to SNF on this discharge. Appreciate therapy recommendations. 3. Elevated troponins in setting of chronic HFpEF, hypertension, hyperlipidemia, history of VTE ? Troponin trend 113 > 109 > 105. No EKG changes noted. Strongly suspect demand ischemia in setting of respiratory failure as noted above. Continue homeamlodipine, Coreg, Lasix and fenofibrate. Continue home Eliquis. 4. Type 2 diabetes mellitus ? Last A1c 7.9% in July. Blood glucose 237 on admit. Holding home p.o. medications. Will treat with Lantus 15 units at night, Humalog 5 units plus sliding scale insulin with meals, adjust as needed. 5. History of sacral ulcer ? Had unstageable sacral ulcer noted on documentation during previous visits. Treat with appropriate offloading management while here. Can consider wound care consult as needed. 6. Class III obesity with BATOOL ? BMI 47 on admit. Complicates hospital course, care and prognosis. Continue CPAP at night. DVT prophylaxis: Not indicated, on Eliquis CODE STATUS: Full code, verified Expected disposition: TBD Total clinical time spent by myself addressing the patient's medical issues, reviewing all the data, and collaborating with patient's care team: 75 minutes. Charges/Coding Visit Charges Inpatient E&M: 64978 Init Hosp L3 10/30/24 0039 <Electronically signed by Percy Price DO> Cosigner Signature (if applicable): CC: Dr. Percy Price DO; Dr. Rocio Bartlett MD~ Signed [facility] Work Phone: [phone] Discharge summary Author Ibrahima [facility] Note Date/Time October 29, 2024 2:42 pm [facility] Medical Records Department [address] [place] [address] Emergency Department Summary 10/29/24 MR#: [id number] Acct: [id number] Name: MELISSA ELIAS Rep #:[id number] : [id number] 59 From: Ibrahima Kolb DO PCP: Dr. Rocio Bartlett MD Status:R EG ER Location: ED HPI History of Present Illness Chief Complaint: Shortness of Breath Narrative Narrative: Patient is a 59-year-old male with a past medical history of hypertension, type 2 diabetes, paraplegia, decubitus ulcer of the sacral region stage IV, BATOOL on BiPAP chronically on nasal cannula 3 to 4 L nasal cannula but at times at night they will increase to 5 L who presents to the emergency department with a chief complaint of low oxygen levels. Patient states that he was recently here for pneumonia and he states that the staff at the facility told him that they are having difficulty maintaining his oxygen level therefore they sent him here for further evaluation management. [facility] Medical History VRE (vancomycin resistant enterococcus) culture positive Decubitus ulcer of sacral region, stage 4 Lymphedema BATOOL treated with BiPAP Abscess of back Constipation Pressure ulcer of sacral region Chronic indwelling Bartlett catheter Blood loss anemia Clot retention of urine Pressure injury, unstageable, with eschar Bilateral pulmonary embolism Rhabdomyolysis Community acquired pneumonia Hypoglycemia Acute osteomyelitis of spine Former tobacco use Paraplegia Cellulitis of leg without foot, right Anemia BMI greater than 40 Type 2 diabetes mellitus HTN (hypertension) H/o back surgery Home Medications ?Medication ?Instructions ?Recorded ?Last Taken ?Type fluticasone propionate 50 1 spray intranasal DAILY haim rtness 03/03/20 Unknown History mcg/actuation nasal of breath spray,suspension (Flonase Allergy Relief) apixaban 5 mg tablet (Eliquis) 5 mg PO BID 07/29/23 History methocarbamol 500 mg tablet 1,000 mg PO BID PRN cramps 07/29/23 08/31/23 History polyethylene glycol 3350 17 17 g PO BID constipation 0 07/29/23 07/29/23 History gram/dose oral powder (ClearLax) pantoprazole 40 mg tablet,delayed 40 mg PO DAILY stoma ch 08/31/23 08/31/23 History release aluminum-mag hydroxide-simethicone 30 ml PO Q6H PRN AK N Gastric 09/13/23 Unknown Rx 400 mg-400 mg-40 mg/5 mL oral susp Burning #0 mL (Mag-Al Plus Extra Strength) amlodipine 10 mg tablet 10 mg PO DAILY #0 tabs 09/12 Unknown Rx carvedilol 12.5 mg tablet 12.5 mg PO BIDCM #0 tabs Unknown Rx diphenhydramine HCl 25 mg capsule 25 mg PO TID PRN PRN Itching #0 09/13/23 Unknown Rx (Banophen) caps peg [id number] 1 1 drp EACH EYE BID dry eyes #0 mL 09/13/23 Unknown Rx %-0.2 %-0.2 % eye drops (Artificial Tears ([id number])) polysaccharide iron complex 150 mg 150 mg PO .QOD supp lement 10/15/23 Unknown History iron capsule (Ferrex) sennosides 8.6 mg-docusate sodium 2 tab PO BID Constip ation 10/15/23 Unknown History 50 mg tablet (Stool Softener-Stimulant Laxative) insulin lispro 100 unit/mL See Protocol subcut ACHS bl ood 10/23/23 Unknown History subcutaneous pen (Humalog KwikPen sugars (U-100) Insulin) loratadine 10 mg tablet 10 mg PO DAILY allergies 02/06 Unknown History (Allerclear) albuterol sulfate 2.5 mg/3 mL 2.5 mg inhalation BID wh eezing 10/25/23 Unknown History (0.083 %) solution for nebulization arginine 7 gram-glutamine 7 1 ea PO BID wound healing 03/22/24 Unknown History gram-calcium HMB 1.5 gram oral powder pack (Wiliam) amino acids-protein hydrolysate 15 30 ml PO BID Unknown History gram-100 kcal/30 mL oral liquid (Pro-Stat Sugar Free) ascorbic acid (vitamin C) 500 mg 500 mg PO QODAY suppl ement 03/26/24 Unknown History tablet chlorhexidine gluconate 4 % 1 applic topical .twice a week 03/26/24 Unknown History topical liquid (Hibiclens) dextrose 40 % oral gel (Glucose 10 g PO Q15M PRN hypog lycemia 03/26/24 Unknown History Gel) naloxone 0.4 mg/mL injection 0.4 mg IM Q5M PRN opioid reversal 03/26/24 Unknown History syringe ondansetron 4 mg disintegrating 4 mg PO Q4H PRN nausea 03/26/24 Unknown History tablet sodium chloride 0.65 % nasal mist 2 spray intranasal Q 2H PRN dry 03/26/24 Unknown History nasal passages dulaglutide 3 mg/0.5 mL 3 mg subcut QWEEK diabetes 0 07/18/24 Unknown History subcutaneous pen injector (Trulicity) duloxetine 30 mg capsule,delayed 60 mg PO QDAY 5 Unknown History release insulin glargine 100 unit/mL 14 unit subcut DAILY diab etes 07/18/24 Unknown History subcutaneous solution (Lantus mellitus type 2 U-100 Insulin) insulin lispro 100 unit/mL 12 unit subcut .ac diabetes 07/18/24 Unknown History subcutaneous solution metformin 500 mg tablet 1,000 mg PO QDAY diabetes Unknown History fenofibrate 54 mg tablet 54 mg PO QHS cholesterol 09/07 Unknown History nystatin 100,000 unit/gram topical 1 applic topical TI D rednes 08/17/24 Unknown History powder morphine 30 mg capsule,extended 30 mg PO Q12H pain 30 days #60 caps 10/10/24 Unknown Rx release pellets ([place]) acetaminophen 325 mg capsule 650 mg PO Q6H pain Unknown History acetic acid 0.25 % irrigation 30 ml irrigation BID sup rapubic 10/12/24 Unknown History solution cath artificial 1 drp EACH EYE BID PRN dry e yes 10/12/24 Unknown History tears(uuvjsib-[id number]) 0.1 %-0.3 %-0.2 % eye drops (GenTeal Tears Moderate) azithromycin 250 mg tablet 250 mg PO QMWF wounds 10/12 Unknown History glipizide 2.5 mg tablet, extended 2.5 mg PO DAILY diab etes 10/12/24 Unknown History release 24 hr simethicone 80 mg chewable tablet 80 mg PO .ACTID PRN gas 10/12/24 Unknown History (Gas Relief (simethicone)) sodium hypochlorite 0.25 % 1 applic topical BID wound 10/12/24 Unknown History solution (Dakin's Solution) amoxicillin 875 mg-potassium 1 tab PO BID 7 days #14 t abs 10/16/24 Unknown Rx clavulanate 125 mg tablet furosemide 20 mg tablet 40 mg (2 x 20 mg) PO BID #30 tabs 10/16/24 Unknown Rx lorazepam 1 mg tablet 1 mg PO DAILY PRN anxiety #7 tabs 10/16/24 Unknown Rx oxycodone 10 mg tablet 5 mg PO .QID pain 10/29/24 U nknown History Allergy/AdvReac Type Severity Reaction Status Date / Time No Known Allergies Allergy Verified 10/12/24 07:34 Family History Mother Hypertension Hypotension Diabetes Arthritis Father Hypertension Hypotension Heart disease Status post double vessel coronary artery bypass angina Arthritis Grandfather Prostate cancer Grandmother Uterine cancer Surgical History History of hip replacement Colostomy status Hx of spinal surgery H/O sinus surgery Social History housing: alf current occupational status: employed and retired Smoking Status: Former smoker alcohol intake: never substance use type: does not use do you feel safe at home: Yes ROS ROS ED ROS Narrative Constitutional: Denies fevers, chills, headaches, lightheadedness or dizziness Eyes: Denies change in vision double vision blurry vision Cardiovascular: Denies chest pain or palpitations Respiratory: Complains of mild cough denies shortness of breath Abdomen: Denies abdominal pain nausea vomit diarrhea : Denies urinary symptoms Neurological: Denies new numbness, wheeze, tingling Musculoskeletal: Denies back pain Skin: Denies any rashes or lesions EXAM Physical Exam Narrative Exam Narrative: General: Patient is lying in bed rest comfortably did not appear to be in acute distress Head: Atraumatic, normocephalic Eyes: PERRL bilaterally, EOMI bilateral, no conjunctival injection noted Neck: Soft, supple, trachea midline Cardiovascular: Patient tachycardic with regular rhythm Respiratory: Diminished breath sounds bilaterally Abdomen: Soft, nondistended, no tenderness palpation Neurological: Patient follow commands knew that he was at [facility] [id number] Skin: Warm, dry, intact Const Vital Signs: 10/29/24 10:22 10/29/24 10:22 10/29/24 10:27 Temperature 98.4 F 98.4 F Temperature Source Oral Oral Pulse Rate 106 H 102 H Respiratory Rate 21 H 20 H Respiratory Effort Respiratory Depth Respiratory Pattern Blood Pressure 121/71 H 129/111 H Blood Pressure Mean 87 117 Pulse Ox 84 87 92 Oxygen Delivery Method Nasal Cannula High Flow High Flow Oxygen Flow Rate (L/min) 6 8 8 Fraction of Inspired Oxygen (FIO2) 10/29/24 10:31 10/29/24 10:51 10/29/24 10:51 Temperature Temperature Source Pulse Rate 101 H Respiratory Rate 15 Respiratory Effort Normal Respiratory Depth Normal Respiratory Pattern Normal Blood Pressure 122/71 H Blood Pressure Mean 88 Pulse Ox 95 Oxygen Delivery Method High Flow High Flow Room Air Oxygen Flow Rate (L/min) 8 8 Fraction of Inspired Oxygen (FIO2) 10/29/24 11:09 10/29/24 11:27 10/29/24 12:00 Temperature 98.6 F 98.1 F Temperature Source Oral Oral Pulse Rate 101 H 98 Respiratory Rate 16 16 Respiratory Effort Respiratory Depth Respiratory Pattern Blood Pressure 130/77 H 104/79 Blood Pressure Mean 94 87 Pulse Ox 92 91 91 Oxygen Delivery Method Nasal Cannula High Flow High Flow Oxygen Flow Rate (L/min) 6 8 8 Fraction of Inspired Oxygen (FIO2) 10/29/24 13:00 10/29/24 13:41 10/29/24 14:00 Temperature 98.1 F 98.2 F 98 F Temperature Source Oral Oral Pulse Rate 100 99 99 Respiratory Rate 18 12 22 H Respiratory Effort Respiratory Depth Respiratory Pattern Blood Pressure 120/71 120/71 112/58 L Blood Pressure Mean 87 87 76 Pulse Ox 90 93 88 Oxygen Delivery Method High Flow High Flow Oxygen Flow Rate (L/min) 6 6 Fraction of Inspired Oxygen (FIO2) 10/29/24 14:15 10/29/24 14:23 Temperature Temperature Source Pulse Rate 99 Respiratory Rate 20 H Respiratory Effort Respiratory Depth Respiratory Pattern Blood Pressure Blood Pressure Mean Pulse Ox 94 93 Oxygen Delivery Method Bi-pap Oxygen Flow Rate (L/min) Fraction of Inspired Oxygen (FIO2) 40 40 MDM MDM MDM Narrative Medical decision making narrative: Patient is a 59-year-old male who presented to the emergency department the chief complaint of hypoxia despite being on his nasal cannula. On the differential diagnosis includes but not limited to ACS, pneumothorax, pneumonia,PE although do feel that this is less likely as he is chronically anticoagulatedon Eliquis. Once workup is obtained reviewed he will be reevaluated. Patient will not be given 30 cc/kg bolus of IV fluids as concern for hypervolemic state he will be given 1 L of IV fluids. Patient's CBC reviewed showed no evidence leukocytosis white blood count normal 8.6, hemoglobin is 9.2 which is stable, platelet count 264. Patient INR normal at 1.2, PT of 15.9 he is on Eliquis, patient's ABG reviewed showed a pH 7.35 with a pCO2 of 66.8. Patient sodium was 139, potassium normal 4.1, creatinine was 0.69. Patient AST and ALT were 19 and 14 respectively. Patient troponin was 113 with a delta troponin pending. Patient's EKG reviewed and showed sinus tachycardia with evidence of right bundle branch block this was compared to EKG from October 12, 2024 which at that point in time also showed evidence of right bundle branch block and is largely unchanged. Patient's proBNP was 108. Patient's urinalysis reviewed showed positive nitrate 500 leukocyte esterase 0-5white cells with 1+ bacteria this will be sent for culture. Patient's chest x-ray reviewed by myself and by radiology which showed pneumonia and a right pleural effusion. Lactic acid was 2. Given the patient's pneumonia increasing oxygen requirements will discuss case with hospitalist for admission. Patient will be given vancomycin and Zosyn at 12:32 PM Called and spoke with hospitalist Dr. Price who is requesting to place the patient on BiPAP for his elevated CO2 level, repeat a CT chest and reevaluating. I reviewed the patient's CT chest and appears that the patient has dense consolidation in the right lower lobe questional prominence of the right hilum narrowing of the right interlobar artery radiographic follow-up recommended coronary artery calcifications noted. Reach back out to hospitalist Dr. Price who states that he will except patient for admission. Patient notified is agreeable to plan all question concerns answered. Lab Data Labs: Laboratory Results - last 24 hr 10/29/24 10/29/24 10/29/24 10:33 11:20 12:24 WBC 8.6 RBC 3.94 L Hgb 9.2 L Hct 32.7 L MCV 83.0 MCH 23.4 L MCHC 28.1 L RDW Std Deviation 53.9 H RDW Coeff of Mary 18.5 H Plt Count 264 MPV 9.8 Immature Gran % (Auto) 0.300 Neut % (Auto) 65.6 Lymph % (Auto) 20.8 Hayes % (Auto) 9.3 Eos % (Auto) 3.5 Baso % (Auto) 0.5 Absolute Neuts (auto) 5.7 Absolute Lymphs (auto) 1.79 Nucleated RBC % 0 PT 15.9 H INR 1.2 APTT 33.6 Sodium 139 Potassium 4.1 Chloride 92 L Carbon Dioxide 38.9 H Anion Gap 8 BUN 24 H Creatinine 0.69 L Estim Creat Clear Calc 165.16 Est GFR (MDRD) Non-Af 108 BUN/Creatinine Ratio 34.7 H Glucose 237 H Lactic Acid 2.0 Calcium 8.7 Total Bilirubin 0.39 AST 19 ALT 14 Alkaline Phosphatase 81 Troponin T High Sens 113 H* Troponin T Hi Sens 2 Hr 109 H* NT pro BNP II 108 Total Protein 7.8 Albumin 3.6 Globulin 4.2 Albumin/Globulin Ratio 0.9 Urine Color Yellow Urine Clarity Clear Urine pH 6.0 Ur Specific [place] 1.010 Urine Protein 100 H Urine Glucose (UA) Normal Urine Ketones Negative Urine Occult Blood 25 H Urine Nitrite Positive H Urine Bilirubin Negative Urine Urobilinogen Normal Ur Leukocyte Esterase 500 H Urine RBC 0-5 SEEN Urine WBC 0-5 SEEN Ur Squamous Epith Cells 0 SEEN Urine Bacteria 1+ Urine Mucus 0 SEEN ABG Data ABG results: ABG 10/29/24 10:36 Specimen Type ART Sample Site R Brach pH 7.35 Bicarbonate Actual 37.2 H Total CO2 39 Base Excess 12 H O2 Saturation 89 L O2 % 8.0 ABG pCO2 66.8 H ABG pO2 61 L O2 Delivery Device Cannula Vent Mode Not entered Radiography Diagnostic Testing: Clinical Impression(s) from Imaging Studies Chest X-Ray 10/29/24 11:30 IMPRESSION: Pneumonia and right pleural effusion. Reading Location: [facility] Chest CT 10/29/24 14:08 IMPRESSION: Coronary artery calcification (CAC) is is present Dense consolidation in the right lower lobe. Questionable prominence of the right hilum with narrowing of the right interlobar artery. Radiographic follow-up recommended. Reading Location: [facility]- Discharge Plan Triage Chief Complaint: Shortness of Breath ED Provider: Ibrahima Kolb Dx/Rx/DC Orders Clinical Impression: Acute and chronic respiratory failure with hypoxia, Type 2 diabetes mellitus, History of paraplegia, Pleural effusion, Pneumonia Prescriptions: No Action fluticasone propionate [Flonase Allergy Relief] 50 mcg/actuation spray,suspension 1 spray INTRANASAL DAILY Patient Comments: takes in once in awhile Rx Instructions: administer into each nostril Wiliam 7-7-1.5 gram powder in packet 1 ea PO BID naloxone 0.4 mg/mL syringe 0.4 mg IM Q5M PRN (Reason: opioid reversal) Rx Instructions: NTExceed 10 mg total dose/episode ondansetron 4 mg tablet,disintegrating 4 mg PO Q4H PRN (Reason: nausea) metformin 500 mg tablet 1,000 mg PO QDAY duloxetine 30 mg capsule,delayed release(DR/EC) 60 mg PO QDAY Pro-Stat Sugar Free 15-100 gram-kcal/30 mL liquid 30 ml PO BID dextrose [Glucose Gel] 40 % gel 10 g PO Q15M PRN (Reason: hypoglycemia) Rx Instructions: until symptoms of low blood sugar are controlled chlorhexidine gluconate [Hibiclens] 4 % liquid 1 applic topical .twice a week Rx Instructions: tuesday and sodium chloride 0.65 % mist 2 spray intranasal Q2H PRN (Reason: dry nasal passages) ascorbic acid (vitamin C) 500 mg tablet 500 mg PO QODAY Trulicity 3 mg/0.5 mL pen injector 3 mg subcut QWEEK Rx Instructions: once a week on Mondays pantoprazole 40 mg tablet,delayed release (DR/EC) 40 mg PO DAILY alum-mag hydroxide-simeth [Mag-Al Plus Extra Strength] 400-400-40 mg/5 mL Suspension 30 ml PO Q6H PRN PRN (Reason: Gastric Burning) Qty: 0 0RF Artificial Tears(rl-iitf-lwbv) 1-0.2-0.2 % Drops 1 drp EACH EYE BID Qty: 0 0RF carvedilol 12.5 mg Tablet 12.5 mg PO BIDCM Qty: 0 0RF amlodipine 10 mg Tablet 10 mg PO DAILY Qty: 0 0RF diphenhydramine HCl [Banophen] 25 mg Capsule 25 mg PO TID PRN PRN (Reason: Itching) Qty: 0 0RF polysaccharide iron complex [Ferrex 150] 150 mg iron Capsule 150 mg PO .QOD sennosides-docusate sodium [Stool Softener-Stimulant Laxat] 8.6-50 mg Tablet 2 tab PO BID albuterol sulfate 2.5 mg /3 mL (0.083 %) solution for nebulization 2.5 mg inhalation BID Rx Instructions: And q4hr prn oxycodone 10 mg tablet 5 mg PO .QID methocarbamol 500 mg tablet 1,000 mg PO BID PRN (Reason: cramps) Eliquis 5 mg tablet 5 mg PO BID polyethylene glycol 3350 [ClearLax] 17 gram/dose powder 17 g PO BID insulin glargine [Lantus U-100 Insulin] 100 unit/mL solution 14 unit subcut DAILY insulin lispro 100 unit/mL solution 12 unit subcut .ac loratadine [Allerclear] 10 mg tablet 10 mg PO DAILY Rx Instructions: am insulin lispro [Humalog KwikPen Insulin] 100 unit/mL Insulin Pen See Protocol subcut ACHS Protocol: 6. Sliding Scale Insulin Custom Condition: mg/dl range Dose/Route: Number of Units Condition: 251-350 Dose/Route: 2 Condition: >350 Dose/Route: 4 Protocol Text: Custom Sliding Scale Rx Instructions: 12 units before meals nystatin 100,000 unit/gram powder 1 applic topical TID fenofibrate 54 mg tablet 54 mg PO QHS simethicone [Gas Relief (simethicone)] 80 mg tablet,chewable 80 mg PO .ACTID PRN (Reason: gas) acetic acid 0.25 % solution 30 ml irrigation BID Patient Comments: [NO ORIGINAL SIG] Dakin's Solution 0.25 % solution 1 applic topical BID artificial tear(etzbh-ykl-wnb) [GenTeal Tears Moderate] 0.1-0.3-0.2 % drops 1 drp EACH EYE BID PRN (Reason: dry eyes) acetaminophen 325 mg capsule 650 mg PO Q6H glipizide 2.5 mg tablet extended release 24hr 2.5 mg PO DAILY azithromycin 250 mg tablet 250 mg PO QMWF amoxicillin-pot clavulanate 875-125 mg tablet 1 tab PO BID 7 Days Qty: 14 0RF furosemide 20 mg tablet 40 mg PO BID Qty: 30 0RF lorazepam 1 mg tablet 1 mg PO DAILY PRN (Reason: anxiety) Qty: 7 0RF morphine [[place]] 30 mg capsule,extend.release pellets 30 mg PO Q12H 30 Days Qty: 60 0RF Primary Care Provider: Rocio Bartlett Referrals: Rocio Bartlett MD [Primary Care Provider] - Print Language: German Disposition Disposition: Acute Care Hospital [facility] What to do if you have Problems For any increased pain, shortness of breath, bleeding, nausea or vomiting, chestpain, or any unexpected problems, contact your Primary Care Provider. Call [facility] ([phone]) or report to the closest Emergency Room. Call 911 if necessary. 10/29/24 1355 <Electronically signed by Ibrahima Kolb DO> Cosigner Signature (if applicable): CC: Dr. Rocio Bartlett MD ~ Signed [facility] Work Phone: [phone] 341-629806-16-2025 Radiology Diagnostic study [facility]06-16-2025 Discharge summary Author Ibrahima Kolb [facility] Note Date/Time October 29, 2024 2:42 pm [facility] Medical Records Department [address] [place] [address] Emergency Department Summary 10/29/24 MR#: [id number] Acct: [id number] Name: MELISSA ELIAS Rep #:[id number] : 1965 59 From: Ibrahima Kolb DO PCP: Dr. Rocio Bartlett MD Status:R EG ER Location: ED HPI History of Present Illness Chief Complaint: Shortness of Breath Narrative Narrative: Patient is a 59-year-old male with a past medical history of hypertension, type 2 diabetes, paraplegia, decubitus ulcer of the sacral region stage IV, BATOOL on BiPAP chronically on nasal cannula 3 to 4 L nasal cannula but at times at night they will increase to 5 L who presents to the emergency department with a chief complaint of low oxygen levels. Patient states that he was recently here for pneumonia and he states that the staff at the facility told him that they are having difficulty maintaining his oxygen level therefore they sent him here for further evaluation management. [facility] Medical History VRE (vancomycin resistant enterococcus) culture positive Decubitus ulcer of sacral region, stage 4 Lymphedema BATOOL treated with BiPAP Abscess of back Constipation Pressure ulcer of sacral region Chronic indwelling Bartlett catheter Blood loss anemia Clot retention of urine Pressure injury, unstageable, with eschar Bilateral pulmonary embolism Rhabdomyolysis Community acquired pneumonia Hypoglycemia Acute osteomyelitis of spine Former tobacco use Paraplegia Cellulitis of leg without foot, right Anemia BMI greater than 40 Type 2 diabetes mellitus HTN (hypertension) H/o back surgery Home Medications ?Medication ?Instructions ?Recorded ?Last Taken ?Type fluticasone propionate 50 1 spray intranasal DAILY haim rtness 03/03/20 Unknown History mcg/actuation nasal of breath spray,suspension (Flonase Allergy Relief) apixaban 5 mg tablet (Eliquis) 5 mg PO BID 07/29/23 History methocarbamol 500 mg tablet 1,000 mg PO BID PRN cramps 07/29/23 08/31/23 History polyethylene glycol 3350 17 17 g PO BID constipation 0 07/29/23 07/29/23 History gram/dose oral powder (ClearLax) pantoprazole 40 mg tablet,delayed 40 mg PO DAILY stoma ch 08/31/23 08/31/23 History release aluminum-mag hydroxide-simethicone 30 ml PO Q6H PRN AK N Gastric 09/13/23 Unknown Rx 400 mg-400 mg-40 mg/5 mL oral susp Burning #0 mL (Mag-Al Plus Extra Strength) amlodipine 10 mg tablet 10 mg PO DAILY #0 tabs 09/12 Unknown Rx carvedilol 12.5 mg tablet 12.5 mg PO BIDCM #0 tabs Unknown Rx diphenhydramine HCl 25 mg capsule 25 mg PO TID PRN PRN Itching #0 09/13/23 Unknown Rx (Banophen) caps peg [id number] 1 1 drp EACH EYE BID dry eyes #0 mL 09/13/23 Unknown Rx %-0.2 %-0.2 % eye drops (Artificial Tears ([id number])) polysaccharide iron complex 150 mg 150 mg PO .QOD supp lement 10/15/23 Unknown History iron capsule (Ferrex) sennosides 8.6 mg-docusate sodium 2 tab PO BID Constip ation 10/15/23 Unknown History 50 mg tablet (Stool Softener-Stimulant Laxative) insulin lispro 100 unit/mL See Protocol subcut ACHS bl ood 10/23/23 Unknown History subcutaneous pen (Humalog KwikPen sugars (U-100) Insulin) loratadine 10 mg tablet 10 mg PO DAILY allergies 02/06 Unknown History (Allerclear) albuterol sulfate 2.5 mg/3 mL 2.5 mg inhalation BID wh eezing 10/25/23 Unknown History (0.083 %) solution for nebulization arginine 7 gram-glutamine 7 1 ea PO BID wound healing 03/22/24 Unknown History gram-calcium HMB 1.5 gram oral powder pack (Wiliam) amino acids-protein hydrolysate 15 30 ml PO BID Unknown History gram-100 kcal/30 mL oral liquid (Pro-Stat Sugar Free) ascorbic acid (vitamin C) 500 mg 500 mg PO QODAY suppl ement 03/26/24 Unknown History tablet chlorhexidine gluconate 4 % 1 applic topical .twice a week 03/26/24 Unknown History topical liquid (Hibiclens) dextrose 40 % oral gel (Glucose 10 g PO Q15M PRN hypog lycemia 03/26/24 Unknown History Gel) naloxone 0.4 mg/mL injection 0.4 mg IM Q5M PRN opioid reversal 03/26/24 Unknown History syringe ondansetron 4 mg disintegrating 4 mg PO Q4H PRN nausea 03/26/24 Unknown History tablet sodium chloride 0.65 % nasal mist 2 spray intranasal Q 2H PRN dry 03/26/24 Unknown History nasal passages dulaglutide 3 mg/0.5 mL 3 mg subcut QWEEK diabetes 0 07/18/24 Unknown History subcutaneous pen injector (Trulicity) duloxetine 30 mg capsule,delayed 60 mg PO QDAY 5 Unknown History release insulin glargine 100 unit/mL 14 unit subcut DAILY diab etes 07/18/24 Unknown History subcutaneous solution (Lantus mellitus type 2 U-100 Insulin) insulin lispro 100 unit/mL 12 unit subcut .ac diabetes 07/18/24 Unknown History subcutaneous solution metformin 500 mg tablet 1,000 mg PO QDAY diabetes Unknown History fenofibrate 54 mg tablet 54 mg PO QHS cholesterol 09/07 Unknown History nystatin 100,000 unit/gram topical 1 applic topical TI D rednes 08/17/24 Unknown History powder morphine 30 mg capsule,extended 30 mg PO Q12H pain 30 days #60 caps 10/10/24 Unknown Rx release pellets ([place]) acetaminophen 325 mg capsule 650 mg PO Q6H pain Unknown History acetic acid 0.25 % irrigation 30 ml irrigation BID sup rapubic 10/12/24 Unknown History solution cath artificial 1 drp EACH EYE BID PRN dry e yes 10/12/24 Unknown History tears(huqbzsl-iuygnofa-sbvidvf) 0.1 %-0.3 %-0.2 % eye drops (GenTeal Tears Moderate) azithromycin 250 mg tablet 250 mg PO QMWF wounds 10/12 Unknown History glipizide 2.5 mg tablet, extended 2.5 mg PO DAILY diab etes 10/12/24 Unknown History release 24 hr simethicone 80 mg chewable tablet 80 mg PO .ACTID PRN gas 10/12/24 Unknown History (Gas Relief (simethicone)) sodium hypochlorite 0.25 % 1 applic topical BID wound 10/12/24 Unknown History solution (Dakin's Solution) amoxicillin 875 mg-potassium 1 tab PO BID 7 days #14 t abs 10/16/24 Unknown Rx clavulanate 125 mg tablet furosemide 20 mg tablet 40 mg (2 x 20 mg) PO BID #30 tabs 10/16/24 Unknown Rx lorazepam 1 mg tablet 1 mg PO DAILY PRN anxiety #7 tabs 10/16/24 Unknown Rx oxycodone 10 mg tablet 5 mg PO .QID pain 10/29/24 U nknown History Allergy/AdvReac Type Severity Reaction Status Date / Time No Known Allergies Allergy Verified 10/12/24 07:34 Family History Mother Hypertension Hypotension Diabetes Arthritis Father Hypertension Hypotension Heart disease Status post double vessel coronary artery bypass angina Arthritis Grandfather Prostate cancer Grandmother Uterine cancer Surgical History History of hip replacement Colostomy status Hx of spinal surgery H/O sinus surgery Social History housing: alf current occupational status: employed and retired Smoking Status: Former smoker alcohol intake: never substance use type: does not use do you feel safe at home: Yes ROS ROS ED ROS Narrative Constitutional: Denies fevers, chills, headaches, lightheadedness or dizziness Eyes: Denies change in vision double vision blurry vision Cardiovascular: Denies chest pain or palpitations Respiratory: Complains of mild cough denies shortness of breath Abdomen: Denies abdominal pain nausea vomit diarrhea : Denies urinary symptoms Neurological: Denies new numbness, wheeze, tingling Musculoskeletal: Denies back pain Skin: Denies any rashes or lesions EXAM Physical Exam Narrative Exam Narrative: General: Patient is lying in bed rest comfortably did not appear to be in acute distress Head: Atraumatic, normocephalic Eyes: PERRL bilaterally, EOMI bilateral, no conjunctival injection noted Neck: Soft, supple, trachea midline Cardiovascular: Patient tachycardic with regular rhythm Respiratory: Diminished breath sounds bilaterally Abdomen: Soft, nondistended, no tenderness palpation Neurological: Patient follow commands knew that he was at [facility] [id number] Skin: Warm, dry, intact Const Vital Signs: 10/29/24 10:22 10/29/24 10:22 10/29/24 10:27 Temperature 98.4 F 98.4 F Temperature Source Oral Oral Pulse Rate 106 H 102 H Respiratory Rate 21 H 20 H Respiratory Effort Respiratory Depth Respiratory Pattern Blood Pressure 121/71 H 129/111 H Blood Pressure Mean 87 117 Pulse Ox 84 87 92 Oxygen Delivery Method Nasal Cannula High Flow High Flow Oxygen Flow Rate (L/min) 6 8 8 Fraction of Inspired Oxygen (FIO2) 10/29/24 10:31 10/29/24 10:51 10/29/24 10:51 Temperature Temperature Source Pulse Rate 101 H Respiratory Rate 15 Respiratory Effort Normal Respiratory Depth Normal Respiratory Pattern Normal Blood Pressure 122/71 H Blood Pressure Mean 88 Pulse Ox 95 Oxygen Delivery Method High Flow High Flow Room Air Oxygen Flow Rate (L/min) 8 8 Fraction of Inspired Oxygen (FIO2) 10/29/24 11:09 10/29/24 11:27 10/29/24 12:00 Temperature 98.6 F 98.1 F Temperature Source Oral Oral Pulse Rate 101 H 98 Respiratory Rate 16 16 Respiratory Effort Respiratory Depth Respiratory Pattern Blood Pressure 130/77 H 104/79 Blood Pressure Mean 94 87 Pulse Ox 92 91 91 Oxygen Delivery Method Nasal Cannula High Flow High Flow Oxygen Flow Rate (L/min) 6 8 8 Fraction of Inspired Oxygen (FIO2) 10/29/24 13:00 10/29/24 13:41 10/29/24 14:00 Temperature 98.1 F 98.2 F 98 F Temperature Source Oral Oral Pulse Rate 100 99 99 Respiratory Rate 18 12 22 H Respiratory Effort Respiratory Depth Respiratory Pattern Blood Pressure 120/71 120/71 112/58 L Blood Pressure Mean 87 87 76 Pulse Ox 90 93 88 Oxygen Delivery Method High Flow High Flow Oxygen Flow Rate (L/min) 6 6 Fraction of Inspired Oxygen (FIO2) 10/29/24 14:15 10/29/24 14:23 Temperature Temperature Source Pulse Rate 99 Respiratory Rate 20 H Respiratory Effort Respiratory Depth Respiratory Pattern Blood Pressure Blood Pressure Mean Pulse Ox 94 93 Oxygen Delivery Method Bi-pap Oxygen Flow Rate (L/min) Fraction of Inspired Oxygen (FIO2) 40 40 MDM MDM MDM Narrative Medical decision making narrative: Patient is a 59-year-old male who presented to the emergency department the chief complaint of hypoxia despite being on his nasal cannula. On the differential diagnosis includes but not limited to ACS, pneumothorax, pneumonia,PE although do feel that this is less likely as he is chronically anticoagulatedon Eliquis. Once workup is obtained reviewed he will be reevaluated. Patient will not be given 30 cc/kg bolus of IV fluids as concern for hypervolemic state he will be given 1 L of IV fluids. Patient's CBC reviewed showed no evidence leukocytosis white blood count normal 8.6, hemoglobin is 9.2 which is stable, platelet count 264. Patient INR normal at 1.2, PT of 15.9 he is on Eliquis, patient's ABG reviewed showed a pH 7.35 with a pCO2 of 66.8. Patient sodium was 139, potassium normal 4.1, creatinine was 0.69. Patient AST and ALT were 19 and 14 respectively. Patient troponin was 113 with a delta troponin pending. Patient's EKG reviewed and showed sinus tachycardia with evidence of right bundle branch block this was compared to EKG from October 12, 2024 which at that point in time also showed evidence of right bundle branch block and is largely unchanged. Patient's proBNP was 108. Patient's urinalysis reviewed showed positive nitrate 500 leukocyte esterase 0-5white cells with 1+ bacteria this will be sent for culture. Patient's chest x-ray reviewed by myself and by radiology which showed pneumonia and a right pleural effusion. Lactic acid was 2. Given the patient's pneumonia increasing oxygen requirements will discuss case with hospitalist for admission. Patient will be given vancomycin and Zosyn at 12:32 PM Called and spoke with hospitalist Dr. Price who is requesting to place the patient on BiPAP for his elevated CO2 level, repeat a CT chest and reevaluating. I reviewed the patient's CT chest and appears that the patient has dense consolidation in the right lower lobe questional prominence of the right hilum narrowing of the right interlobar artery radiographic follow-up recommended coronary artery calcifications noted. Reach back out to hospitalist Dr. Price who states that he will except patient for admission. Patient notified is agreeable to plan all question concerns answered. Lab Data Labs: Laboratory Results - last 24 hr 10/29/24 10/29/24 10/29/24 10:33 11:20 12:24 WBC 8.6 RBC 3.94 L Hgb 9.2 L Hct 32.7 L MCV 83.0 MCH 23.4 L MCHC 28.1 L RDW Std Deviation 53.9 H RDW Coeff of Mary 18.5 H Plt Count 264 MPV 9.8 Immature Gran % (Auto) 0.300 Neut % (Auto) 65.6 Lymph % (Auto) 20.8 Hayes % (Auto) 9.3 Eos % (Auto) 3.5 Baso % (Auto) 0.5 Absolute Neuts (auto) 5.7 Absolute Lymphs (auto) 1.79 Nucleated RBC % 0 PT 15.9 H INR 1.2 APTT 33.6 Sodium 139 Potassium 4.1 Chloride 92 L Carbon Dioxide 38.9 H Anion Gap 8 BUN 24 H Creatinine 0.69 L Estim Creat Clear Calc 165.16 Est GFR (MDRD) Non-Af 108 BUN/Creatinine Ratio 34.7 H Glucose 237 H Lactic Acid 2.0 Calcium 8.7 Total Bilirubin 0.39 AST 19 ALT 14 Alkaline Phosphatase 81 Troponin T High Sens 113 H* Troponin T Hi Sens 2 Hr 109 H* NT pro BNP II 108 Total Protein 7.8 Albumin 3.6 Globulin 4.2 Albumin/Globulin Ratio 0.9 Urine Color Yellow Urine Clarity Clear Urine pH 6.0 Ur Specific [place] 1.010 Urine Protein 100 H Urine Glucose (UA) Normal Urine Ketones Negative Urine Occult Blood 25 H Urine Nitrite Positive H Urine Bilirubin Negative Urine Urobilinogen Normal Ur Leukocyte Esterase 500 H Urine RBC 0-5 SEEN Urine WBC 0-5 SEEN Ur Squamous Epith Cells 0 SEEN Urine Bacteria 1+ Urine Mucus 0 SEEN ABG Data ABG results: ABG 10/29/24 10:36 Specimen Type ART Sample Site R Brach pH 7.35 Bicarbonate Actual 37.2 H Total CO2 39 Base Excess 12 H O2 Saturation 89 L O2 % 8.0 ABG pCO2 66.8 H ABG pO2 61 L O2 Delivery Device Cannula Vent Mode Not entered Radiography Diagnostic Testing: Clinical Impression(s) from Imaging Studies Chest X-Ray 10/29/24 11:30 IMPRESSION: Pneumonia and right pleural effusion. Reading Location: [facility] Chest CT 10/29/24 14:08 IMPRESSION: Coronary artery calcification (CAC) is is present Dense consolidation in the right lower lobe. Questionable prominence of the right hilum with narrowing of the right interlobar artery. Radiographic follow-up recommended. [facility] T[facility] Chief Complaint: Shortness of Breath ED Provider: Ibrahima Kolb Dx/Rx/DC Orders Clinical Impression: Acute and chronic respiratory failure with hypoxia, Type 2 diabetes mellitus, History of paraplegia, Pleural effusion, Pneumonia Prescriptions: No Action fluticasone propionate [Flonase Allergy Relief] 50 mcg/actuation spray,suspension 1 spray INTRANASAL DAILY Patient Comments: takes in once in awhile Rx Instructions: administer into each nostril Wiliam 7-7-1.5 gram powder in packet 1 ea PO BID naloxone 0.4 mg/mL syringe 0.4 mg IM Q5M PRN (Reason: opioid reversal) Rx Instructions: NTExceed 10 mg total dose/episode ondansetron 4 mg tablet,disintegrating 4 mg PO Q4H PRN (Reason: nausea) metformin 500 mg tablet 1,000 mg PO QDAY duloxetine 30 mg capsule,delayed release(DR/EC) 60 mg PO QDAY Pro-Stat Sugar Free 15-100 gram-kcal/30 mL liquid 30 ml PO BID dextrose [Glucose Gel] 40 % gel 10 g PO Q15M PRN (Reason: hypoglycemia) Rx Instructions: until symptoms of low blood sugar are controlled chlorhexidine gluconate [Hibiclens] 4 % liquid 1 applic topical .twice a week Rx Instructions: tuesday and sodium chloride 0.65 % mist 2 spray intranasal Q2H PRN (Reason: dry nasal passages) ascorbic acid (vitamin C) 500 mg tablet 500 mg PO QODAY Trulicity 3 mg/0.5 mL pen injector 3 mg subcut QWEEK Rx Instructions: once a week on Mondays pantoprazole 40 mg tablet,delayed release (DR/EC) 40 mg PO DAILY alum-mag hydroxide-simeth [Mag-Al Plus Extra Strength] 400-400-40 mg/5 mL Suspension 30 ml PO Q6H PRN PRN (Reason: Gastric Burning) Qty: 0 0RF Artificial Tears(vt-jger-rzla) 1-0.2-0.2 % Drops 1 drp EACH EYE BID Qty: 0 0RF carvedilol 12.5 mg Tablet 12.5 mg PO BIDCM Qty: 0 0RF amlodipine 10 mg Tablet 10 mg PO DAILY Qty: 0 0RF diphenhydramine HCl [Banophen] 25 mg Capsule 25 mg PO TID PRN PRN (Reason: Itching) Qty: 0 0RF polysaccharide iron complex [Ferrex 150] 150 mg iron Capsule 150 mg PO .QOD sennosides-docusate sodium [Stool Softener-Stimulant Laxat] 8.6-50 mg Tablet 2 tab PO BID albuterol sulfate 2.5 mg /3 mL (0.083 %) solution for nebulization 2.5 mg inhalation BID Rx Instructions: And q4hr prn oxycodone 10 mg tablet 5 mg PO .QID methocarbamol 500 mg tablet 1,000 mg PO BID PRN (Reason: cramps) Eliquis 5 mg tablet 5 mg PO BID polyethylene glycol 3350 [ClearLax] 17 gram/dose powder 17 g PO BID insulin glargine [Lantus U-100 Insulin] 100 unit/mL solution 14 unit subcut DAILY insulin lispro 100 unit/mL solution 12 unit subcut .ac loratadine [Allerclear] 10 mg tablet 10 mg PO DAILY Rx Instructions: am insulin lispro [Humalog KwikPen Insulin] 100 unit/mL Insulin Pen See Protocol subcut ACHS Protocol: 6. Sliding Scale Insulin Custom Condition: mg/dl range Dose/Route: Number of Units Condition: 251-350 Dose/Route: 2 Condition: >350 Dose/Route: 4 Protocol Text: Custom Sliding Scale Rx Instructions: 12 units before meals nystatin 100,000 unit/gram powder 1 applic topical TID fenofibrate 54 mg tablet 54 mg PO QHS simethicone [Gas Relief (simethicone)] 80 mg tablet,chewable 80 mg PO .ACTID PRN (Reason: gas) acetic acid 0.25 % solution 30 ml irrigation BID Patient Comments: [NO ORIGINAL SIG] Dakin's Solution 0.25 % solution 1 applic topical BID artificial tear(aekyc-nfy-iyy) [GenTeal Tears Moderate] 0.1-0.3-0.2 % drops 1 drp EACH EYE BID PRN (Reason: dry eyes) acetaminophen 325 mg capsule 650 mg PO Q6H glipizide 2.5 mg tablet extended release 24hr 2.5 mg PO DAILY azithromycin 250 mg tablet 250 mg PO QMWF amoxicillin-pot clavulanate 875-125 mg tablet 1 tab PO BID 7 Days Qty: 14 0RF furosemide 20 mg tablet 40 mg PO BID Qty: 30 0RF lorazepam 1 mg tablet 1 mg PO DAILY PRN (Reason: anxiety) Qty: 7 0RF morphine [[place]] 30 mg capsule,extend.release pellets 30 mg PO Q12H 30 Days Qty: 60 0RF Primary Care Provider: Rocio Bartlett Referrals: Rocio Bartlett MD [Primary Care Provider] - Print Language: German Disposition Disposition: Acute Care Hospital [facility] What to do if you have Problems For any increased pain, shortness of breath, bleeding, nausea or vomiting, chestpain, or any unexpected problems, contact your Primary Care Provider. Call [facility] ([phone]) or report to the closest Emergency Room. Call 911 if necessary. 10/29/24 1442 <Electronically signed by Ibrahima Kolb DO> Cosigner Signature (if applicable): CC: Dr. Rocio Bartlett MD ~ Signed [facility] Work Phone: [phone] Radiology Diagnostic study [facility]06-13-2025 Progress note Author [facility] Note Date/Time October 26, 2024 1:55 pm [facility] [address] [place] [address] Progress Note - Wound Care 10/26/24 1352 MR#: [id number] Acct: [id number] Name: MELISSA ELIAS Rep #:[id number] From: Peter Thayer DO PCP: Dr. Rocio Bartlett MD Status:R EG RCR Location: History of Present Illness Date of Service: 10/26/24 Chief Complaint: sacral decubitus ulcer History of Wound: Melissa is a pleasant 59 yo gentleman that has undergone an unfortunate series of events over the last several years which has left him paraplegic and with a sacral decubitus ulcer and residing in [facility]. He has been referred to the wound center for evaluation and treatment of his sacral ulcer. He has had a long history of degenerative disc disease of his spine and underwent spine surgery in August 2016 initially and then again in February 2017 due to osteomyelitis and infection of hardware. He underwent further surgery forfusion in December of 2020. He fell in November of 2022 getting up from his chair and then experienced worsening pain, weakness in his legs and ultimately became paraplegic from the waist down. He underwent surgery in [place] in January 2023 at [facility] and then had several complications including pneumonia, pulmonary embolisms and a sacral ulcer that developed into a large defect after multiple surgical debridements and osteomyelitis of his sacrum while at [facility] through the first part 2023 and then attempted to come home to be cared for by his elderly mother which was not successful and he was hospitalized and discharged to [facility] where he has been residing and continues to reside. He has undergone many different treatments for his sacral ulcer including wound vac, silver dressings and Dakins and does have an air mattress but it is not an alternating pressure air mattress. The staff does try to offload his ulcer with wedges and pillows but it is difficult due to his chronic back pain. He is currently having the wound dressed with Dakins wet to dry and super absorber dressings twice daily. he reports being on chronic antibiotic treatment and IV treatment over the past year and states that he had MRI that showed resolution of osteomyelitis. (Records unavailable). He currently does not have any symptoms of systemic infection or localized infection. Denies fever, chills, nausea. Subjective Subjective Melissa returns today for evaluation and treatment of a sacral decubitus ulcer. Hehas been tolerating dressing changes with Dakins and super absorber dressings. He was hospitalized for respiratory failure and pneumonia last week and developed 2 large blisters to his feet during hospitalization. He is currently on Azithromycin for his pulmonary infection. Denies fever, chills, erythema. Objective Data Objective Data Vital Signs: Vital Signs Temp Pulse Resp BP Pulse Ox O2 Del Method O2 Flow Rate 97.5 F L 104 H 20 H 123/75 H 96 Nasal Cannula 6 10/26/24 09:12 10/26/24 09:12 10/26/24 09:12 10/26/24 09:12 10/14/24 00:14 10/26/24 09:12 10/26/24 09:12 FiO2 89 10/26/24 09:12 Oxygen Flow Rate (L/min) 6 Oxygen Delivery Method Nasal Cannula Weight: 141.067 kg Body Mass Index (BMI) 43.3 Physical Exam Const alert, oriented x3, no apparent distress and well nourished Constitutional Narrative: Morbidly obese, middle-aged, white male, sitting up in bed, appears comfortable and nontoxic General Appearance: cooperative and comfortable Nutritional Appearance: morbidly obese HEENT head/scalp atraumatic and moist oral mucous membranes Resp normal respiratory effort, no retractions, no use of accessory muscles and clearto auscultation bilaterally Resp Narrative: Distant due to body habitus Cardio regular rate, regular rhythm, S1 normal heart sound, S2 normal heart sound, no murmurs, no rub, no gallops and no clicks GI normal to inspection, nondistended, normoactive bowel sounds, soft to palpation and non-tender GI Narrative: colostomy present Extremity Extremity Narrative: Chronic bilateral lower extremity edema due to history of paraplegia and lack ofmovement, no cyanosis or clubbing General Extremity: edema bilateral lower extremity Details: moderate Skin Wounds: wounds noted Wound Narrative: as noted in clinical panel - large sacral ulcer and right ischial ulcer, no visible bone, shearing injury of left ischial area, area is irregular with fringe like skin in areas from repetitive shearing and pressure Right lateral foot with large serous blister and left heel with large serous blister - drained/decompressed using 18 G needle Neuro oriented x3, CN's II-XII intact bilaterally, No moves all extremities, No no focal motor deficits and No no sensory deficits noted Neuro Narrative: Bilateral lower extremity flaccidity due to history of L1 injury Speech: speech normal Psych affect normal Psych Narrative: Very pleasant, interacts appropriately Debridement Note Debridement Note Wound debrided: left ischium Laterality: Left Tissue Removed: Yellow slough, devitalized tissue No debridement was completed: No debridement was completed today Post-Debridement Measurements and Additional Note: Post-Debridement Measurements/Treatment WC - Nurse 1 - General Ulcer Assessment Start: 10/19/24 09:04 Freq: Status: Active Protocol: [email or web address].LOWEXT Activity Type Activity Date Activity User E-sign Co-sign Detail Recorded Client Recorded Date Recorded By Document 10/19/24 09:35 RB [id number] 10/19/24 09:41 RB Document 10/26/24 09:12 RB [id number] 10/26/24 09:25 RB Edit Result 10/26/24 09:12 RB (1) [id number] 10/26/24 09:30 RB (1) Respiratory Rate (12-18) 18 => 20 H Oxygen Delivery Method => Nasal Cannula O2 L/MIN (L/min) => 6 FIO2 % => 89 10/19/24 10/26/24 09:35 09:12 - Today's Visit Information Type of service Follow-up Visit Follow-up Visit (Physician/WATER REUSE PROGRAM MANAGER (Physician/WATER REUSE PROGRAM MANAGER ) ) Arrival Mode Stretcher Wheelchair Transfer Assistance Kelli Lift Kelli Lift Patient Identification Verified (Name & Yes Yes ) Patient Requires Transmission-Based No No Precautions Height and Weight Body Mass Index (BMI) 43.3 43.3 BMI Classification Obese Obese Vital Signs Temperature (97.8 F-99.1 F) 97 F L 97.5 F L Temperature Source Temporal Temporal Pulse Rate (60-100) 87 104 H Pulse Location Monitor Monitor Respiratory Rate (12-18) 18 20 H Respiratory rate source Observation Observation Oxygen Delivery Method Nasal Cannula O2 L/MIN (L/min) 2 6 FIO2 % 83 89 Blood Pressure (90/60-120/80) 138/69 H 123/75 H Blood Pressure Mean (mm Hg) 92 91 Source Monitor Monitor Position Semi-Fowlers Semi-Fowlers Blood Pressure Location Left Arm Left Arm History Since Last Visit- (Skip if this is Patient's initial visit) Have you changed medications since your No No last visit? Any new allergies or adverse reactions No No Had a fall/change in ADL's that may No No increase risk of falls Signs or symptoms of abuse and/or No No neglect since last visit Have you been in the hospital since your No No last visit? Has dressing in place as prescribed Yes Yes Has compression in place as prescribed N/A N/A Has offloadiing in place as prescribed N/A Yes Experienced any changes in pain level or No No management Pain Scale: 0-10 Numeric Is Patient Pain Free? Yes Yes WC - Nurse 1 - General Ulcer Measurement Start: 10/19/24 09:04 Freq: Status: Active Protocol: Activity Type Activity Date Activity User E-sign Co-sign Detail Recorded Client Recorded Date Recorded By Document 10/19/24 09:35 RB [id number] 10/19/24 09:41 RB Document 10/26/24 09:12 RB [id number] 10/26/24 09:25 RB 10/19/24 10/26/24 09:35 09:12 Wound Center Nurse 1 3. R ischium -Combined with other wound No No -Current Size (cm) - Length 0.1 7.4 -Current Size (cm) - Width 0.1 5.2 -Current Size (cm) - Depth 0.1 0.1 -Total Square Cm 0.01 38.48 -Photo Taken Yes -Tunneling No No -Undermining/Tunneling No No -Circular Undermining No No -Exudate Amt Large Large -Exudate Type Serosanguineous Serosanguineous -Wound Margin Thickened Thickened & Rolled Under -Granulation Amt Large (67-100%) Medium (34-66%) -Granulation Quality [place]vang Solvang -Slough/Fibrin Yes Yes -Necrosis Amt Small (1-33%) Medium (34-66%) -Necrotic Tissue Type Adherent Slough Adherent Slough -Structure Exposed N/A N/A -Texture (Trish-wound Skin Appearance) Friable Assessed, Friable -Moisture (Trish-wound Skin Appearance) Assessed Assessed -Color (Trish-wound Skin Appearance) Assessed Assessed -Temperature (Trish-wound Skin No Abnormality No Abnormality Appearance) (Pt Warm) (Pt Warm) -Tenderness on Palpation (Trish-wound No No Skin Appearance) -Ulcer Cleansing Wound Cleanser Wound Cleanser -Foul Odor after Cleansing No No -Anesthetic Used 4% Lidocaine Solution 2. L ischium -Combined with other wound No No -Current Size (cm) - Length 0.1 8.5 -Current Size (cm) - Width 0.1 3 -Current Size (cm) - Depth 0.1 0.2 -Total Square Cm 0.01 25.5 -Photo Taken Yes -Tunneling No No -Undermining/Tunneling No No -Circular Undermining No No -Exudate Amt Large -Exudate Type Serosanguineous -Wound Margin Thickened & Rolled Under -Granulation Amt Medium (34-66%) -Granulation Quality Solvang Solvang -Slough/Fibrin Yes Yes -Necrosis Amt Medium (34-66%) Medium (34-66%) -Necrotic Tissue Type Adherent Slough Adherent Slough -Structure Exposed N/A N/A -Texture (Trish-wound Skin Appearance) Assessed, Assessed, Fluctuance, Excoriation Scarring -Moisture (Trish-wound Skin Appearance) Weeping Assessed -Color (Trish-wound Skin Appearance) Assessed Assessed -Temperature (Trish-wound Skin No Abnormality No Abnormality Appearance) (Pt Warm) (Pt Warm) -Tenderness on Palpation (Trish-wound No No Skin Appearance) -Ulcer Cleansing Wound Cleanser Wound Cleanser -Foul Odor after Cleansing No No -Anesthetic Used 4% Lidocaine Solution -Wound Comment(s) Dr Price had increase nc O2 to 4l and pulse ox is 93% *1. coccyx -Combined with other wound No -Current Size (cm) - Length 0.1 17 -Current Size (cm) - Width 0.1 9 -Current Size (cm) - Depth 0.1 0.3 -Total Square Cm 0.01 153 -Photo Taken Yes -Tunneling No No -Undermining/Tunneling No No -Circular Undermining No No -Exudate Amt Large Large -Exudate Type Serosanguineous Serosanguineous -Wound Margin Thickened Thickened & Rolled Under -Granulation Amt Medium (34-66%) Medium (34-66%) -Granulation Quality Solvang Solvang -Slough/Fibrin Yes Yes -Necrosis Amt Medium (34-66%) Medium (34-66%) -Necrotic Tissue Type Adherent Slough Adherent Slough -Structure Exposed N/A N/A -Texture (Trish-wound Skin Appearance) Assessed, Excoriation, Friable Friable -Moisture (Trish-wound Skin Appearance) Assessed Assessed -Color (Trish-wound Skin Appearance) Assessed, Assessed Erythema -Temperature (Trish-wound Skin No Abnormality No Abnormality Appearance) (Pt Warm) (Pt Warm) -Tenderness on Palpation (Trish-wound No No Skin Appearance) -Ulcer Cleansing Wound Cleanser Wound Cleanser -Foul Odor after Cleansing No No -Anesthetic Used 4% Lidocaine Solution -Wound Comment(s) L medial heel right lateral and R lateral foot has intact foot have large fluid filled blister and blister, R heel both have skin has blister intact that was drained last week by Dr Thayer and skin intact - Nurse 2 - General Ulcer CM Notes Start: 10/19/24 09:04 Freq: Status: Active Protocol: Activity Type Activity Date Activity User E-sign Co-sign Detail Recorded Client Recorded Date Recorded By Document 10/19/24 09:46 [id number] 10/19/24 10:11 Document 10/26/24 09:48 [id number] 10/26/24 10:05 10/19/24 10/26/24 09:46 09:48 Wound Center Nurse 2 #5 Right Heel Blister -Time 09:52 -Correct Patient Yes -Correct Side, Site, Position Yes -Correct Procedure Yes -Procedure Performed Yes -Type of Procedure Debridement -Clinical Debridement Epidermis / Dermis -Tissue Removed Epidermis, Dermis -Post Debridement (cm) - Length 5.0 -Post Debridement (cm) - Width 3.4 -Post Debridement (cm) - Depth 0.1 -Total Square (Post) (cm) 17.00 -Area of Debridement (cm) - Length 5.0 -Area of Debridement (cm) - Width 3.4 -Total Square (Area) (cm) 17.00 -Tunneling No -Undermining/Tunneling No -Circular Undermining No -Wound/Ulcer Outcome Not Healed -Ulcer Cleansing Rinsed/ Irrigated with Saline -Foul Odor after Cleansing No -Bioengineered Tissue No -Bleeding Controlled with Pressure -Treatment Response Procedure Tolerated Well -Offloading No -Debridement - Open, 1st 20sq cm Yes -Debridement, Open, ea addt'l 20sq cm 1 or part thereof #4 Left Heel Blister -Time 09:50 -Correct Patient Yes -Correct Side, Site, Position Yes -Correct Procedure Yes -Procedure Performed Yes -Type of Procedure Debridement -Clinical Debridement Epidermis / Dermis -Tissue Removed Epidermis, Dermis -Post Debridement (cm) - Length 5.3 -Post Debridement (cm) - Width 4.0 -Post Debridement (cm) - Depth 0.1 -Total Square (Post) (cm) 21.20 -Area of Debridement (cm) - Length 5.3 -Area of Debridement (cm) - Width 4.0 -Total Square (Area) (cm) 21.20 -Tunneling No -Undermining/Tunneling No -Circular Undermining No -Wound/Ulcer Outcome Not Healed -Ulcer Cleansing Rinsed/ Irrigated with Saline -Foul Odor after Cleansing No -Bioengineered Tissue No -Bleeding Controlled with Pressure -Treatment Response Procedure Tolerated Well -Offloading No -Debridement - Open, 1st 20sq cm No 3. R ischium -Time 09:51 09:48 -Correct Patient Yes Yes -Correct Side, Site, Position Yes Yes -Correct Procedure Yes Yes -Procedure Performed Yes Yes -Type of Procedure Debridement Debridement -Clinical Debridement Muscle / Fascia Muscle / Fascia -Tissue Removed Muscle Muscle -Post Debridement (cm) - Length 11.0 7.5 -Post Debridement (cm) - Width 5.5 6.0 -Post Debridement (cm) - Depth 0.1 0.1 -Total Square (Post) (cm) 60.50 45.00 -Area of Debridement (cm) - Length 11.0 7.5 -Area of Debridement (cm) - Width 5.5 6.0 -Total Square (Area) (cm) 60.50 45.00 -Tunneling No No -Undermining/Tunneling No No -Circular Undermining No No -Wound/Ulcer Outcome Not Healed Not Healed -Ulcer Cleansing Rinsed/ Rinsed/ Irrigated with Irrigated with Saline Saline -Foul Odor after Cleansing No No -Bioengineered Tissue No No -Bleeding Controlled with Pressure Pressure -Treatment Response Procedure Procedure Tolerated Well Tolerated Well -Offloading No No -Debridement - Muscle / Fascia, 1st No No 20sq cm 2. L ischium -Time : 09:49 -Correct Patient Yes Yes -Correct Side, Site, Position Yes Yes -Correct Procedure No Yes -Procedure Performed No Yes -Type of Procedure Debridement -Clinical Debridement Subcutaneous -Tissue Removed Subcutaneous -Tunneling No -Undermining/Tunneling No -Circular Undermining No -Wound/Ulcer Outcome Not Healed Not Healed -Ulcer Cleansing Rinsed/ Irrigated with Saline -Foul Odor after Cleansing No No -Bioengineered Tissue No No -Bleeding Controlled with Pressure Pressure -Treatment Response Procedure Tolerated Well -Offloading No No -Debridement - Subq, 1st 20sq cm No Yes *1. coccyx -Time 09:52 09:49 -Correct Patient Yes Yes -Correct Side, Site, Position Yes Yes -Correct Procedure Yes Yes -Procedure Performed Yes Yes -Type of Procedure Debridement Debridement -Clinical Debridement Muscle / Fascia Muscle / Fascia -Tissue Removed Muscle Muscle -Post Debridement (cm) - Length 11.5 9.5 -Post Debridement (cm) - Width 15.0 16.2 -Post Debridement (cm) - Depth 0.1 0.1 -Total Square (Post) (cm) 172.50 153.90 -Area of Debridement (cm) - Length 11.5 9.5 -Area of Debridement (cm) - Width 15.0 16.2 -Total Square (Area) (cm) 172.50 153.90 -Tunneling No No -Undermining/Tunneling No No -Circular Undermining No No -Wound/Ulcer Outcome Not Healed Not Healed -Ulcer Cleansing Rinsed/ Rinsed/ Irrigated with Irrigated with Saline Saline -Foul Odor after Cleansing No -Bioengineered Tissue No No -Bleeding Controlled with Pressure Pressure -Treatment Response Procedure Procedure Tolerated Well Tolerated Well -Offloading No -Debridement - Muscle / Fascia, 1st Yes Yes 20sq cm -Debridement, Muscle/Fascia, ea addt'l 11 9 20sq cm or part thereof Pain Scale: 0-10 Numeric Is Patient Pain Free? Yes Yes - Nurse 3 - General Ulcer D/C NN Start: 10/19/24 09:04 Freq: Status: Active Protocol: Activity Type Activity Date Activity User E-sign Co-sign Detail Recorded Client Recorded Date Recorded By Document 10/19/24 10:39 RB [id number] 10/19/24 10:44 RB Document 10/26/24 10:12 KW [id number] 10/26/24 10:14 10/19/24 10/26/24 10:39 10:12 Wound Care Center Nurse 3 #5 Right Heel Blister -Primary Dressing Applied NonAdherent Contact Layer -Primary Dressing Covered/Secured with Dry Gauze & Roll Gauze, Secured with Tape #4 Left Heel Blister -Other Dressing adaptic -Primary Dressing Covered/Secured with Dry Gauze & Roll Gauze, Secured with Tape 3. R ischium -Ulcer Cleansing Rinsed/ Irrigated with Saline -Other Dressing dakins dakins gauze moistened gauze with adaptic / ABD and fluffed gauze -Primary Dressing Covered/Secured with Secured with Dry Gauze, Tape Secured with Tape 2. L ischium -Ulcer Cleansing Rinsed/ Irrigated with Saline -Primary Dressing Applied Optilok 5x5 1/2 -Other Dressing dakins dakins with moistened gauze adaptic and / abd fluffed gauze -Primary Dressing Covered/Secured with Secured with Dry Gauze, Tape Secured with Tape -Optilok 5x5 1/2 1 *1. coccyx -Other Dressing dakins dakins and moistened gauze adaptic fluff / abd gauze -Primary Dressing Covered/Secured with Secured with Dry Gauze, Tape Secured with Tape -Wound Comment(s) adaptic to L heel ABD, adaptic to R lateral foot ABD Treatment Response Procedure Tolerated Well Pain Scale: 0-10 Numeric Is Patient Pain Free? No Yes WC - Visit Discharge Discharge Condition Stable Stable Ambulatory Status Wheelchair Wheelchair Transportation IA Medication Reconcilliation completed & No No provided to patient/care provider Clinical Summary of Care Provided Yes Yes Additional Wound Wound debrided: right ischium Laterality: Right Wound Grade/Stage: Stage III Type of Debridement: Excisional debridement Anesthesia Used: 4% Lidocaine Solution Depth: Down to and including healthy tissue and in the subcutaneous layer Percentage of wound debrided: 100 Instrument Used: 5mm curette Tissue Removed: Yellow slough, devitalized tissue Severity: Fat Layer Exposed Amount of bleeding with debridement: Mild Bleeding Controlled with: Compression and gauze Patient tolerated procedure: Patient tolerated procedure well Additional Wound Wound debrided: coccyx Laterality: Not Applicable Wound Grade/Stage: Stage IV Type of Debridement: Excisional debridement Anesthesia Used: 4% Lidocaine Solution Depth: Down to and including healthy tissue, in the subcutaneous layer and to muscle Percentage of wound debrided: 100 Instrument Used: 5mm curette Tissue Removed: Yellow slough, devitalized tissue Severity: Necrosis of Muscle Amount of bleeding with debridement: Mild Bleeding Controlled with: Compression and gauze Patient tolerated procedure: Patient tolerated procedure well Assessment/Plan Assessment/Plan (1) Chronic pain: CODE(S): G89.29 - Other chronic pain QUALIFIERS: Chronic pain type: chronic pain syndrome Qualified Code(s): G89.4 - Chronic pain syndrome (2) Hypoxia: CODE(S): R09.02 - Hypoxemia (3) History of paraplegia: CODE(S): Z86.69 - Personal history of other diseases of the nervous systemand sense organs (4) Chronic indwelling Bartlett catheter: CODE(S): Z97.8 - Presence of other specified devices (5) Type 2 diabetes mellitus: CODE(S): E11.9 - Type 2 diabetes mellitus without complications QUALIFIERS: Diabetes mellitus intermediate card tender insulin use: without intermediate card tender use Diabetes mellitus complication status: with neurologic complications Diabetes mellitus complication detail: with polyneuropathy Qualified Code(s): E11.42 - Type 2 diabetes mellitus with diabetic polyneuropathy (6) Chronic anticoagulation: CODE(S): Z79.01 - intermediate card tender (current) use of anticoagulants (7) History of deep vein thrombosis: CODE(S): Z86.718 - Personal history of other venous thrombosis and embolism (8) Decubitus ulcer of sacral region, stage 4: CODE(S): L89.154 - Pressure ulcer of sacral region, stage 4 (9) Decubitus ulcer of left perineal ischial region, stage 2: CODE(S): L89.322 - Pressure ulcer of left buttock, stage 2 (10) Hx of spinal surgery: CODE(S): Z98.890 - Other specified postprocedural states (11) Colostomy status: CODE(S): Z93.3 - Colostomy status (12) HTN (hypertension): CODE(S): I10 - Essential (primary) hypertension QUALIFIERS: Hypertension type: primary hypertension Qualified Code(s): I10 - Essential (primary) hypertension (13) BATOOL treated with BiPAP: CODE(S): G47.33 - Obstructive sleep apnea (adult) (pediatric) (14) Lymphedema: CODE(S): I89.0 - Lymphedema, not elsewhere classified (15) Decubitus ulcer of right ischium, stage 3: CODE(S): L89.313 - Pressure ulcer of right buttock, stage 3 PLAN: Plan Debridement performed today in clinic as annotated above. At home wound-care instructions: The patient's ulcers will be washed with antibacterial soap and water and then will use Adaptic and Dakins wet to dry to wound bed and cover with gauze and superabsorber for heavy drainage twice daily. Keep dressing clean and dry. Left heel and right lateral foot will be covered with adaptic and ABD and changed daily. Off-loading: The patient was instructed to avoid pressure and friction on the affected areas. Reposition every 2 hours at minimum. Avoid prolonged standing and/or dangling of legs. When seated, feet should be elevated at chest level. Continue air mattress. Order has been written for alternating pressure air mattress to assist in offloading pressure to his ulcers. He now has alternating pressure air mattress to assist in offloading. Diet: Patient encouraged to increase protein intake while taking caution to avoid high carbohydrate and/or sugar intake. He is getting [place] protein supplement at [facility]. Labs/cultures/imaging: Will obtain previous imaging results. Most recent A1C 7.9% on 07/23/24. Wound culture showed multiple bacteria and he has completed on Flagyl and Cefdinir. Follow-up: Return in 1 week for wound care follow up. Return sooner or report tothe emergency room should symptoms worsen, or new symptoms arise. Note: [employer] speech recognition overhead worker software was used to create portions of this document. Sound-alike and misspelled words, as well as other overhead worker errors may be contained in the documentation. 10/26/24 1355 <Electronically signed by Peter Thayer DO> Cosigner Signature (if applicable): CC: ~ Signed [facility] Work Phone: [phone] Progress note Author Peter [facility] Note Date/Time October 19, 2024 2:45p m [facility] [address] [place] [address] Progress Note - Wound Care 10/19/24 1437 MR#: [id number] Acct: [id number] Name: MELISSA ELIAS Rep #:[id number] : 1965 59 From: Peter Thayer DO PCP: Dr. Rocio Bartlett MD Status:R EG RCR Location: History of Present Illness Date of Service: 10/19/24 Chief Complaint: sacral decubitus ulcer History of Wound: Melissa is a pleasant 59 yo gentleman that has undergone an unfortunate series of events over the last several years which has left him paraplegic and with a sacral decubitus ulcer and residing in [facility]. He has been referred to the wound center for evaluation and treatment of his sacral ulcer. He has had a long history of degenerative disc disease of his spine and underwent spine surgery in August 2016 initially and then again in February 2017 due to osteomyelitis and infection of hardware. He underwent further surgery forfusion in December of 2020. He fell in November of 2022 getting up from his chair and then experienced worsening pain, weakness in his legs and ultimately became paraplegic from the waist down. He underwent surgery in [place] in January 2023 at [facility] and then had several complications including pneumonia, pulmonary embolisms and a sacral ulcer that developed into a large defect after multiple surgical debridements and osteomyelitis of his sacrum while at [facility] through the first part 2023 and then attempted to come home to be cared for by his elderly mother which was not successful and he was hospitalized and discharged to [facility] where he has been residing and continues to reside. He has undergone many different treatments for his sacral ulcer including wound vac, silver dressings and Dakins and does have an air mattress but it is not an alternating pressure air mattress. The staff does try to offload his ulcer with wedges and pillows but it is difficult due to his chronic back pain. He is currently having the wound dressed with Dakins wet to dry and super absorber dressings twice daily. he reports being on chronic antibiotic treatment and IV treatment over the past year and states that he had MRI that showed resolution of osteomyelitis. (Records unavailable). He currently does not have any symptoms of systemic infection or localized infection. Denies fever, chills, nausea. Subjective Subjective Melissa returns today for evaluation and treatment of a sacral decubitus ulcer. Hehas been tolerating dressing changes with Dakins and super absorber dressings. He was hospitalized for respiratory failure and pneumonia last week and developed 2 large blisters to his feet during hospitalization. He is currently on Azithromycin for his pulmonary infection. Denies fever, chills, erythema. Objective Data Objective Data Vital Signs: Vital Signs Temp Pulse Resp BP Pulse Ox O2 Flow Rate FiO2 97 F L 87 18 138/69 H 96 2 83 10/19/24 09:35 10/19/24 09:35 10/19/24 09:35 10/19/24 09:35 10/14/24 00:14 10/19/24 09:35 10/19/24 09:35 Oxygen Flow Rate (L/min) 2 Weight: 141.067 kg Body Mass Index (BMI) 43.3 Physical Exam Const alert, oriented x3, no apparent distress and well nourished Constitutional Narrative: Morbidly obese, middle-aged, white male, sitting up in bed, appears comfortable and nontoxic General Appearance: cooperative and comfortable Nutritional Appearance: morbidly obese HEENT head/scalp atraumatic and moist oral mucous membranes Resp normal respiratory effort, no retractions, no use of accessory muscles and clearto auscultation bilaterally Resp Narrative: Distant due to body habitus Cardio regular rate, regular rhythm, S1 normal heart sound, S2 normal heart sound, no murmurs, no rub, no gallops and no clicks GI normal to inspection, nondistended, normoactive bowel sounds, soft to palpation and non-tender GI Narrative: colostomy present Extremity Extremity Narrative: Chronic bilateral lower extremity edema due to history of paraplegia and lack ofmovement, no cyanosis or clubbing General Extremity: edema bilateral lower extremity Details: moderate Skin Wounds: wounds noted Wound Narrative: as noted in clinical panel - large sacral ulcer and right ischial ulcer, no visible bone, shearing injury of left ischial area, area is irregular with fringe like skin in areas from repetitive shearing and pressure Right lateral foot with large serous blister and left heel with large serous blister - drained/decompressed using 18 G needle Neuro oriented x3, CN's II-XII intact bilaterally, No moves all extremities, No no focal motor deficits and No no sensory deficits noted Neuro Narrative: Bilateral lower extremity flaccidity due to history of L1 injury Speech: speech normal Psych affect normal Psych Narrative: Very pleasant, interacts appropriately Debridement Note Debridement Note Wound debrided: left ischium Laterality: Left Wound Grade/Stage: Stage 2 Anesthesia Used: 4% Lidocaine Solution Depth: Down to and including healthy tissue and in the subcutaneous layer Percentage of wound debrided: 100 Instrument Used: 5mm curette Tissue Removed: Yellow slough, devitalized tissue Severity: Fat Layer Exposed Amount of bleeding with debridement: None Bleeding Controlled with: Compression and gauze Patient tolerated procedure: Patient tolerated procedure well Post-Debridement Measurements and Additional Note: Post-Debridement Measurements/Treatment WC - Nurse 1 - General Ulcer Assessment Start: 10/19/24 09:04 Freq: Status: Active Protocol: ELENA Activity Type Activity Date Activity User E-sign Co-sign Detail Recorded Client Recorded Date Recorded By Document 10/19/24 09:35 RB [id number] 10/19/24 09:41 RB 10/19/24 09:35 - Today's Visit Information Type of service Follow-up Visit (Physician/WATER REUSE PROGRAM MANAGER ) Arrival Mode Stretcher Transfer Assistance Kelli Lift Patient Identification Verified (Name & Yes ) Patient Requires Transmission-Based No Precautions Height and Weight Body Mass Index (BMI) 43.3 BMI Classification Obese Vital Signs Temperature (97.8 F-99.1 F) 97 F L Temperature Source Temporal Pulse Rate (60-100) 87 Pulse Location Monitor Respiratory Rate (12-18) 18 Respiratory rate source Observation O2 L/MIN (L/min) 2 FIO2 % 83 Blood Pressure (90/60-120/80) 138/69 H Blood Pressure Mean (mm Hg) 92 Source Monitor Position Semi-Fowlers Blood Pressure Location Left Arm History Since Last Visit- (Skip if this is Patient's initial visit) Have you changed medications since your No last visit? Any new allergies or adverse reactions No Had a fall/change in ADL's that may No increase risk of falls Signs or symptoms of abuse and/or No neglect since last visit Have you been in the hospital since your No last visit? Has dressing in place as prescribed Yes Has compression in place as prescribed N/A Has offloadiing in place as prescribed N/A Experienced any changes in pain level or No management Pain Scale: 0-10 Numeric Is Patient Pain Free? Yes - Nurse 1 - General Ulcer Measurement Start: 10/19/24 09:04 Freq: Status: Active Protocol: Activity Type Activity Date Activity User E-sign Co-sign Detail Recorded Client Recorded Date Recorded By Document 10/19/24 09:35 RAMO [id number] 10/19/24 09:41 RAMO 10/19/24 09:35 Wound Center Nurse 1 3. R ischium -Combined with other wound No -Current Size (cm) - Length 0.1 -Current Size (cm) - Width 0.1 -Current Size (cm) - Depth 0.1 -Total Square Cm 0.01 -Tunneling No -Undermining/Tunneling No -Circular Undermining No -Exudate Amt Large -Exudate Type Serosanguineous -Wound Margin Thickened -Granulation Amt Large (67-100%) -Granulation Quality Solvang -Slough/Fibrin Yes -Necrosis Amt Small (1-33%) -Necrotic Tissue Type Adherent Slough -Structure Exposed N/A -Texture (Trish-wound Skin Appearance) Friable -Moisture (Trish-wound Skin Appearance) Assessed -Color (Trish-wound Skin Appearance) Assessed -Temperature (Trish-wound Skin No Abnormality Appearance) (Pt Warm) -Tenderness on Palpation (Trish-wound No Skin Appearance) -Ulcer Cleansing Wound Cleanser -Foul Odor after Cleansing No -Anesthetic Used 4% Lidocaine Solution 2. L ischium -Combined with other wound No -Current Size (cm) - Length 0.1 -Current Size (cm) - Width 0.1 -Current Size (cm) - Depth 0.1 -Total Square Cm 0.01 -Tunneling No -Undermining/Tunneling No -Circular Undermining No -Granulation Quality Solvang -Slough/Fibrin Yes -Necrosis Amt Medium (34-66%) -Necrotic Tissue Type Adherent Slough -Structure Exposed N/A -Texture (Trish-wound Skin Appearance) Assessed, Fluctuance, Scarring -Moisture (Trish-wound Skin Appearance) Weeping -Color (Trish-wound Skin Appearance) Assessed -Temperature (Trish-wound Skin No Abnormality Appearance) (Pt Warm) -Tenderness on Palpation (Trish-wound No Skin Appearance) -Ulcer Cleansing Wound Cleanser -Foul Odor after Cleansing No -Anesthetic Used 4% Lidocaine Solution -Wound Comment(s) Dr Price had increase nc O2 to 4l and pulse ox is 93% *1. coccyx -Current Size (cm) - Length 0.1 -Current Size (cm) - Width 0.1 -Current Size (cm) - Depth 0.1 -Total Square Cm 0.01 -Tunneling No -Undermining/Tunneling No -Circular Undermining No -Exudate Amt Large -Exudate Type Serosanguineous -Wound Margin Thickened -Granulation Amt Medium (34-66%) -Granulation Quality Solvang -Slough/Fibrin Yes -Necrosis Amt Medium (34-66%) -Necrotic Tissue Type Adherent Slough -Structure Exposed N/A -Texture (Trish-wound Skin Appearance) Assessed, Friable -Moisture (Trish-wound Skin Appearance) Assessed -Color (Trish-wound Skin Appearance) Assessed, Erythema -Temperature (Trish-wound Skin No Abnormality Appearance) (Pt Warm) -Tenderness on Palpation (Trish-wound No Skin Appearance) -Ulcer Cleansing Wound Cleanser -Foul Odor after Cleansing No -Anesthetic Used 4% Lidocaine Solution -Wound Comment(s) L medial heel and R lateral foot have large blister and both have skin intact WC - Nurse 2 - General Ulcer CM Notes Start: 10/19/24 09:04 Freq: Status: Active Protocol: Activity Type Activity Date Activity User E-sign Co-sign Detail Recorded Client Recorded Date Recorded By Document 10/19/24 09:46 [id number] 10/19/24 10:11 10/19/24 09:46 Wound Center Nurse 2 3. R ischium -Time 09:51 -Correct Patient Yes -Correct Side, Site, Position Yes -Correct Procedure Yes -Procedure Performed Yes -Type of Procedure Debridement -Clinical Debridement Muscle / Fascia -Tissue Removed Muscle -Post Debridement (cm) - Length 11.0 -Post Debridement (cm) - Width 5.5 -Post Debridement (cm) - Depth 0.1 -Total Square (Post) (cm) 60.50 -Area of Debridement (cm) - Length 11.0 -Area of Debridement (cm) - Width 5.5 -Total Square (Area) (cm) 60.50 -Tunneling No -Undermining/Tunneling No -Circular Undermining No -Wound/Ulcer Outcome Not Healed -Ulcer Cleansing Rinsed/ Irrigated with Saline -Foul Odor after Cleansing No -Bioengineered Tissue No -Bleeding Controlled with Pressure -Treatment Response Procedure Tolerated Well -Offloading No -Debridement - Muscle / Fascia, 1st No 20sq cm 2. L ischium -Time 09:51 -Correct Patient Yes -Correct Side, Site, Position Yes -Correct Procedure No -Procedure Performed No -Wound/Ulcer Outcome Not Healed -Foul Odor after Cleansing No -Bioengineered Tissue No -Bleeding Controlled with Pressure -Offloading No -Debridement - Subq, 1st 20sq cm No *1. coccyx -Time 09:52 -Correct Patient Yes -Correct Side, Site, Position Yes -Correct Procedure Yes -Procedure Performed Yes -Type of Procedure Debridement -Clinical Debridement Muscle / Fascia -Tissue Removed Muscle -Post Debridement (cm) - Length 11.5 -Post Debridement (cm) - Width 15.0 -Post Debridement (cm) - Depth 0.1 -Total Square (Post) (cm) 172.50 -Area of Debridement (cm) - Length 11.5 -Area of Debridement (cm) - Width 15.0 -Total Square (Area) (cm) 172.50 -Tunneling No -Undermining/Tunneling No -Circular Undermining No -Wound/Ulcer Outcome Not Healed -Ulcer Cleansing Rinsed/ Irrigated with Saline -Bioengineered Tissue No -Bleeding Controlled with Pressure -Treatment Response Procedure Tolerated Well -Debridement - Muscle / Fascia, 1st Yes 20sq cm -Debridement, Muscle/Fascia, ea addt'l 11 20sq cm or part thereof Pain Scale: 0-10 Numeric Is Patient Pain Free? Yes - Nurse 3 - General Ulcer D/C NN Start: 10/19/24 09:04 Freq: Status: Active Protocol: Activity Type Activity Date Activity User E-sign Co-sign Detail Recorded Client Recorded Date Recorded By Document 10/19/24 10:39 RB [id number] 10/19/24 10:44 RB 10/19/24 10:39 Wound Care Center Nurse 3 3. R ischium -Ulcer Cleansing Rinsed/ Irrigated with Saline -Other Dressing dakins moistened gauze / ABD -Primary Dressing Covered/Secured with Secured with Tape 2. L ischium -Ulcer Cleansing Rinsed/ Irrigated with Saline -Primary Dressing Applied Optilok 5x5 1/2 -Other Dressing dakins moistened gauze / abd -Primary Dressing Covered/Secured with Secured with Tape -Optilok 5x5 1/2 1 *1. coccyx -Other Dressing dakins moistened gauze / abd -Primary Dressing Covered/Secured with Secured with Tape -Wound Comment(s) adaptic to L heel ABD, adaptic to R lateral foot ABD Treatment Response Procedure Tolerated Well Pain Scale: 0-10 Numeric Is Patient Pain Free? No - Visit Discharge Discharge Condition Stable Ambulatory Status Wheelchair Transportation IA Medication Reconcilliation completed & No provided to patient/care provider Clinical Summary of Care Provided Yes Additional Wound Wound debrided: right ischium Laterality: Right Wound Grade/Stage: Stage III Type of Debridement: Excisional debridement Anesthesia Used: 4% Lidocaine Solution Depth: Down to and including healthy tissue and in the subcutaneous layer Percentage of wound debrided: 100 Instrument Used: 5mm curette Tissue Removed: Yellow slough, devitalized tissue Severity: Fat Layer Exposed Amount of bleeding with debridement: Mild Bleeding Controlled with: Compression and gauze Patient tolerated procedure: Patient tolerated procedure well Additional Wound Wound debrided: coccyx Laterality: Not Applicable Wound Grade/Stage: Stage IV Type of Debridement: Excisional debridement Anesthesia Used: 4% Lidocaine Solution Depth: Down to and including healthy tissue, in the subcutaneous layer and to muscle Percentage of wound debrided: 100 Instrument Used: 5mm curette Tissue Removed: Yellow slough, devitalized tissue Severity: Necrosis of Muscle Amount of bleeding with debridement: Mild Bleeding Controlled with: Compression and gauze Patient tolerated procedure: Patient tolerated procedure well Assessment/Plan Assessment/Plan (1) Chronic pain: CODE(S): G89.29 - Other chronic pain QUALIFIERS: Chronic pain type: chronic pain syndrome Qualified Code(s): G89.4 - Chronic pain syndrome (2) Hypoxia: CODE(S): R09.02 - Hypoxemia (3) History of paraplegia: CODE(S): Z86.69 - Personal history of other diseases of the nervous systemand sense organs (4) Chronic indwelling Bartlett catheter: CODE(S): Z97.8 - Presence of other specified devices (5) Type 2 diabetes mellitus: CODE(S): E11.9 - Type 2 diabetes mellitus without complications QUALIFIERS: Diabetes mellitus fpc insulin use: without intermediate card tender use Diabetes mellitus complication status: with neurologic complications Diabetes mellitus complication detail: with polyneuropathy Qualified Code(s): E11.42 - Type 2 diabetes mellitus with diabetic polyneuropathy (6) Chronic anticoagulation: CODE(S): Z79.01 - MCFP (current) use of anticoagulants (7) History of deep vein thrombosis: CODE(S): Z86.718 - Personal history of other venous thrombosis and embolism (8) Decubitus ulcer of sacral region, stage 4: CODE(S): L89.154 - Pressure ulcer of sacral region, stage 4 (9) Decubitus ulcer of left perineal ischial region, stage 2: CODE(S): L89.322 - Pressure ulcer of left buttock, stage 2 (10) Hx of spinal surgery: CODE(S): Z98.890 - Other specified postprocedural states (11) Colostomy status: CODE(S): Z93.3 - Colostomy status (12) HTN (hypertension): CODE(S): I10 - Essential (primary) hypertension QUALIFIERS: Hypertension type: primary hypertension Qualified Code(s): I10 - Essential (primary) hypertension (13) BATOOL treated with BiPAP: CODE(S): G47.33 - Obstructive sleep apnea (adult) (pediatric) (14) Lymphedema: CODE(S): I89.0 - Lymphedema, not elsewhere classified (15) Decubitus ulcer of right ischium, stage 3: CODE(S): L89.313 - Pressure ulcer of right buttock, stage 3 PLAN: Plan Debridement performed today in clinic as annotated above. At home wound-care instructions: The patient's ulcers will be washed with antibacterial soap and water and then will use Dakins wet to dry to wound bed and cover with gauze and superabsorber for heavy drainage twice daily. Keep dressing clean and dry. Left heel and right lateral foot will be covered with adaptic and ABD and changed daily. Off-loading: The patient was instructed to avoid pressure and friction on the affected areas. Reposition every 2 hours at minimum. Avoid prolonged standing and/or dangling of legs. When seated, feet should be elevated at chest level. Continue air mattress. Order has been written for alternating pressure air mattress to assist in offloading pressure to his ulcers. He now has alternating pressure air mattress to assist in offloading. Diet: Patient encouraged to increase protein intake while taking caution to avoid high carbohydrate and/or sugar intake. He is getting Wiliam protein supplement at [facility]. Labs/cultures/imaging: Will obtain previous imaging results. Most recent A1C 7.9% on 07/23/24. Wound culture showed multiple bacteria and he has completed on Flagyl and Cefdinir. Follow-up: Return in 1 week for wound care follow up. Return sooner or report tothe emergency room should symptoms worsen, or new symptoms arise. Note: [employer] speech recognition overhead worker software was used to create portions of this document. Sound-alike and misspelled words, as well as other overhead worker errors may be contained in the documentation. 10/19/24 8840 <Electronically signed by Peter Thayer DO> Cosigner Signature (if applicable): CC: ~ Signed [facility] Work Phone: 1(213) 933-231406-03-2025 Consult note Author Darcy Gaitan [facility] Note Date/Time October 16, 2024 4:14p m [facility] Medical Records Department [address] [place] [address] Counseling Note - Pharmacy 10/16/24 1113 MR#: [id number] Acct: [id number] Name: MELISSA ELIAS Rep #:[id number] : 1965 59 From: Darcy Gaitan PCP: Dr. Rocio Bartlett MD Status:A DM IN Y Location: [place] [id number] [place] Med Reconciliation Pharmacy Service has performed discharge medication reconciliation for this patient. The patient's discharge medication list was reviewed for discrepancies and discrepancies were resolved. Medications at Discharge Home Medications fluticasone propionate 50 mcg/actuation nasal spray,suspension (Flonase Allergy Relief) 1 spray intranasal DAILY shortness of breath 03/03/20 apixaban 5 mg tablet (Eliquis) 5 mg PO BID 07/29/23 methocarbamol 500 mg tablet 1,000 mg PO BID PRN cramps 07/29/23 polyethylene glycol 3350 17 gram/dose oral powder (ClearLax) 17 g PO BID constipation 07/29/23 pantoprazole 40 mg tablet,delayed release 40 mg PO DAILY stomach 08/31/23 aluminum-mag hydroxide-simethicone 400 mg-400 mg-40 mg/5 mL oral susp (Mag-Al Plus Extra Strength) 30 ml PO Q6H PRN PRN Gastric Burning #0 mL 09/13/23 amlodipine 10 mg tablet 10 mg PO DAILY #0 tabs 09/13/23 carvedilol 12.5 mg tablet 12.5 mg PO BIDCM #0 tabs 09/13/23 diphenhydramine HCl 25 mg capsule (Banophen) 25 mg PO TID PRN PRN Itching #0 caps 09/13/23 peg 918-[id number]-xdisdzmg 1 %-0.2 %-0.2 % eye drops (Artificial Tears ([id number])) 1 drp EACH EYE BID dry eyes #0 mL 09/13/23 polysaccharide iron complex 150 mg iron capsule (Ferrex) 150 mg PO .QOD supplement 10/15/23 sennosides 8.6 mg-docusate sodium 50 mg tablet (Stool Softener-Stimulant Laxative) 2 tab PO BID Constipation 10/15/23 insulin lispro 100 unit/mL subcutaneous pen (Humalog KwikPen (U-100) Insulin) See Protocol subcut ACHS blood sugars 10/23/23 loratadine 10 mg tablet (Allerclear) 10 mg PO DAILY allergies 10/23/23 albuterol sulfate 2.5 mg/3 mL (0.083 %) solution for nebulization 2.5 mg inhalation BID wheezing 10/25/23 arginine 7 gram-glutamine 7 gram-calcium HMB 1.5 gram oral powder pack (Wiliam) 1ea PO BID wound healing 03/22/24 amino acids-protein hydrolysate 15 gram-100 kcal/30 mL oral liquid (Pro-Stat Sugar Free) 30 ml PO BID 03/26/24 ascorbic acid (vitamin C) 500 mg tablet 500 mg PO QODAY supplement 03/26/24 chlorhexidine gluconate 4 % topical liquid (Hibiclens) 1 applic topical .twice aweek 03/26/24 dextrose 40 % oral gel (Glucose Gel) 10 g PO Q15M PRN hypoglycemia 03/26/24 naloxone 0.4 mg/mL injection syringe 0.4 mg IM Q5M PRN opioid reversal 03/26/24 ondansetron 4 mg disintegrating tablet 4 mg PO Q4H PRN nausea 03/26/24 sodium chloride 0.65 % nasal mist 2 spray intranasal Q2H PRN dry nasal passages 03/26/24 dulaglutide 3 mg/0.5 mL subcutaneous pen injector (Trulicity) 3 mg subcut QWEEK diabetes 07/18/24 duloxetine 30 mg capsule,delayed release 60 mg PO QDAY 07/18/24 insulin glargine 100 unit/mL subcutaneous solution (Lantus U-100 Insulin) 14 unit subcut DAILY diabetes mellitus type 2 07/18/24 insulin lispro 100 unit/mL subcutaneous solution 12 unit subcut .ac diabetes 07/18/24 metformin 500 mg tablet 1,000 mg PO QDAY diabetes 07/18/24 fenofibrate 54 mg tablet 54 mg PO QHS cholesterol 08/17/24 nystatin 100,000 unit/gram topical powder 1 applic topical TID rednes 08/17/24 morphine 30 mg capsule,extended release pellets ([place]) 30 mg PO Q12H pain 30 days #60 caps 10/10/24 acetaminophen 325 mg capsule 650 mg PO Q6H pain 10/12/24 acetic acid 0.25 % irrigation solution 30 ml irrigation BID suprapubic cath 10/12/24 artificial tears(waiobvu-srdtplfv-jtabecd) 0.1 %-0.3 %-0.2 % eye drops (GenTeal Tears Moderate) 1 drp EACH EYE BID PRN dry eyes 10/12/24 azithromycin 250 mg tablet 250 mg PO QMWF wounds 10/12/24 glipizide 2.5 mg tablet, extended release 24 hr 2.5 mg PO DAILY diabetes 10/12/24 simethicone 80 mg chewable tablet (Gas Relief (simethicone)) 80 mg PO .ACTID PRNgas 10/12/24 sodium hypochlorite 0.25 % solution (Dakin's Solution) 1 applic topical BID wound 10/12/24 amoxicillin 875 mg-potassium clavulanate 125 mg tablet 1 tab PO BID 7 days #14 tabs 10/16/24 furosemide 20 mg tablet 40 mg (2 x 20 mg) PO BID #30 tabs 10/16/24 lorazepam 1 mg tablet 1 mg PO DAILY PRN anxiety #7 tabs 10/16/24 oxycodone 10 mg tablet 10 mg PO .QID pain 2 days #8 tabs 10/16/24 10/16/24 1113 <Electronically signed by Darcy Gaitan> Date _ Darcy Gaitan Cosigner Signature (if applicable): Date CC: ~ Signed [facility] Work Phone: 1(375) 561-876806-03-2025 Discharge summary Author Palmira Johnson [facility] Note Date/Time October 16, 2024 10:13 am [facility] Medical Records Department [address] [place] [address] Discharge Summary 10/16/24 1011 MR#: [id number] Acct: [id number] Name: MELISSA ELIAS FLORENCIO Rep #:[id number] : 1965 59 From: Palmira Johnson MD PCP: Dr. Rocio Bartlett MD Status:A DM IN Location: [facility] [id number] Providers Date of Admission: 10/12/24 Date of Discharge: 10/16/24 Primary Care Physician: Dr. Rocio Bartlett MD Consultations 10/12/24 10:17 Consult: Onc/Wound/surgical processor Routine Comment: Reason For Visit: DYSPNEA Diagnosis Discharge Diagnosis (1) Hypoxia: Status: Acute Code(s): R09.02 - Hypoxemia (2) Pneumonia: Status: Acute Code(s): J18.9 - Pneumonia, unspecified organism Plan Patient is a 59-year-old [facility] in[facility] progressive shortness of breath 1. Acute hypoxic respiratory failure. ? Secondary to pneumonia admitted to monitored bed for subsequent management. Patient placed on supplemental oxygen titrated to keep saturation greater than 90 ? 10/14/2024 patient had to be placed on noninvasive ventilation via Airvo plan isto titrate to keep saturation greater than 90 and wean down to nasal cannula prior to patient being assessed for possible discharge ? 10/15/2024; patient remains on Airvo we will attempt to wean down to nasal cannula ? 10/16/2024 the patient was discharged to the intermediate facility once his oxygen requirement improved. At the time of discharge patient was requiring 7 Lper open 2. Viral pneumonia with suspected superimposed bacterial pneumonia given the fact the [facility] and had failed outpatient. Patient was started on Zosyn as well as azithromycin. Ordered sputum cultures, viral respiratory panel, COVID assay. Also ordered CTA which did show Left lower lobe consolidation as well as patchy infiltrates in both upper lobes and left lower lobe. ? 10/13/2024Patient viral respiratory culture came back positive for human metapneumovirus infection. Subsequently placed in ICU 3. Acute on chronic congestive heart failure ? Complicating care patient is on p.o. furosemide held started on IV furosemide echo ordered as part of his management. Patient was also placed on strict inputand output, low-sodium diet, daily weights ? 10/16/2024; 2D echo obtained demonstrated EF of 55 to 60% 4. History of bilateral pulmonary embolism ? CTA obtained on admission was negative for PE patient is on apixaban discontinued 5. Elevated troponin ? Secondary to demand ischemia from above echo has been ordered to assess for regional wall motion abnormalities. If any abnormalities found on patient echo consultation will be placed to cardiology 6. Diabetes mellitus type 2 ? Patient is on long-acting insulin in addition to scheduled short acting insulin did continue with home regiment. Also placed on 1800 ADA diet in addition to Accu- Cheks ACHS with sliding scale coverage 7. Anemia ? Secondary to chronic disorder monitoring H&H and transfuse if patient becomes symptomatic or hemoglobin falls below 7 8. Unstageable sacral decubitus ? Present on admission consult has been placed to wound care nurse 9. Paraplegia ? Secondary to accidental fall ? Will continue supportive care 10. Class III obesity with BMI of 51.2 ? Complicating care 11. Obstructive sleep apnea ? BiPAP therapy at night 12. Essential tension ? Patient blood pressure remained stable 13. DVT prophylaxis ? Patient already on apixaban Medications at Discharge Home Medications fluticasone propionate 50 mcg/actuation nasal spray,suspension (Flonase Allergy Relief) 1 spray intranasal DAILY shortness of breath 03/03/20 apixaban 5 mg tablet (Eliquis) 5 mg PO BID 07/29/23 methocarbamol 500 mg tablet 1,000 mg PO BID PRN cramps 07/29/23 polyethylene glycol 3350 17 gram/dose oral powder (ClearLax) 17 g PO BID constipation 07/29/23 pantoprazole 40 mg tablet,delayed release 40 mg PO DAILY stomach 08/31/23 aluminum-mag hydroxide-simethicone 400 mg-400 mg-40 mg/5 mL oral susp (Mag-Al Plus Extra Strength) 30 ml PO Q6H PRN PRN Gastric Burning #0 mL 09/13/23 amlodipine 10 mg tablet 10 mg PO DAILY #0 tabs 09/13/23 carvedilol 12.5 mg tablet 12.5 mg PO BIDCM #0 tabs 09/13/23 diphenhydramine HCl 25 mg capsule (Banophen) 25 mg PO TID PRN PRN Itching #0 caps 09/13/23 peg 020-olmofbpcempk-rbbsqidp 1 %-0.2 %-0.2 % eye drops (Artificial Tears ([id number]-rbzuwtowq-lirkzmhc)) 1 drp EACH EYE BID dry eyes #0 mL 09/13/23 polysaccharide iron complex 150 mg iron capsule (Ferrex) 150 mg PO .QOD supplement 10/15/23 sennosides 8.6 mg-docusate sodium 50 mg tablet (Stool Softener-Stimulant Laxative) 2 tab PO BID Constipation 10/15/23 insulin lispro 100 unit/mL subcutaneous pen (Humalog KwikPen (U-100) Insulin) See Protocol subcut ACHS blood sugars 10/23/23 loratadine 10 mg tablet (Allerclear) 10 mg PO DAILY allergies 10/23/23 albuterol sulfate 2.5 mg/3 mL (0.083 %) solution for nebulization 2.5 mg inhalation BID wheezing 10/25/23 arginine 7 gram-glutamine 7 gram-calcium HMB 1.5 gram oral powder pack (Wiliam) 1ea PO BID wound healing 03/22/24 amino acids-protein hydrolysate 15 gram-100 kcal/30 mL oral liquid (Pro-Stat Sugar Free) 30 ml PO BID 03/26/24 ascorbic acid (vitamin C) 500 mg tablet 500 mg PO QODAY supplement 03/26/24 chlorhexidine gluconate 4 % topical liquid (Hibiclens) 1 applic topical .twice aweek 03/26/24 dextrose 40 % oral gel (Glucose Gel) 10 g PO Q15M PRN hypoglycemia 03/26/24 naloxone 0.4 mg/mL injection syringe 0.4 mg IM Q5M PRN opioid reversal 03/26/24 ondansetron 4 mg disintegrating tablet 4 mg PO Q4H PRN nausea 03/26/24 sodium chloride 0.65 % nasal mist 2 spray intranasal Q2H PRN dry nasal passages 03/26/24 dulaglutide 3 mg/0.5 mL subcutaneous pen injector (Trulicity) 3 mg subcut QWEEK diabetes 07/18/24 duloxetine 30 mg capsule,delayed release 60 mg PO QDAY 07/18/24 insulin glargine 100 unit/mL subcutaneous solution (Lantus U-100 Insulin) 14 unit subcut DAILY diabetes mellitus type 2 07/18/24 insulin lispro 100 unit/mL subcutaneous solution 12 unit subcut .ac diabetes 07/18/24 metformin 500 mg tablet 1,000 mg PO QDAY diabetes 07/18/24 fenofibrate 54 mg tablet 54 mg PO QHS cholesterol 08/17/24 nystatin 100,000 unit/gram topical powder 1 applic topical TID rednes 08/17/24 morphine 30 mg capsule,extended release pellets ([place]) 30 mg PO Q12H pain 30 days #60 caps 10/10/24 acetaminophen 325 mg capsule 650 mg PO Q6H pain 10/12/24 acetic acid 0.25 % irrigation solution 30 ml irrigation BID suprapubic cath 10/12/24 artificial tears(qyafnue-qcgyiozc-pfrhcrj) 0.1 %-0.3 %-0.2 % eye drops (GenTeal Tears Moderate) 1 drp EACH EYE BID PRN dry eyes 10/12/24 azithromycin 250 mg tablet 250 mg PO QMWF wounds 10/12/24 glipizide 2.5 mg tablet, extended release 24 hr 2.5 mg PO DAILY diabetes 10/12/24 simethicone 80 mg chewable tablet (Gas Relief (simethicone)) 80 mg PO .ACTID PRNgas 10/12/24 sodium hypochlorite 0.25 % solution (Dakin's Solution) 1 applic topical BID wound 10/12/24 amoxicillin 875 mg-potassium clavulanate 125 mg tablet 1 tab PO BID 7 days #14 tabs 10/16/24 furosemide 20 mg tablet 40 mg (2 x 20 mg) PO BID #30 tabs 10/16/24 lorazepam 1 mg tablet 1 mg PO DAILY PRN anxiety #7 tabs 10/16/24 oxycodone 10 mg tablet 10 mg PO .QID pain 2 days #8 tabs 10/16/24 Hospital Course Summary of Care Provided Minutes Spent on Discharge: 35 Physical Exam Narrative GENERAL: cooperative HEENT: Atraumatic; normocephalic EYES; Anicteric, Normal Conjunctiva NECK; supple, normal thyroid, RESPIRATORY: Diminished to auscultation CARDIOVASCULAR: Regular S1 S2, GI: soft, normoactive bowel sounds, : No Renal angle tenderness; EXTREMITIES: No edema, no clubbing, MUSCULOSKELETAL: no muscle wasting NEURO: Awake; paraplegic SKIN: Sacral decubitus present on admission PSYCH; Flat affect Weight / BMI Weight Weight: 149 kg Body Mass Index (BMI) 51.4 ABG / Lab / Microbiology Data 10/16/24 05:16 10/16/24 05:16 Laboratory: Laboratory Results - last 24 hr 10/15/24 12:33: POC Glucose 280 H 10/15/24 17:45: POC Glucose 264 H 10/15/24 23:25: POC Glucose 270 H 10/16/24 05:16: WBC 6.6, RBC 4.18 L, Hgb 9.4 L, Hct 33.8 L, MCV 80.9, MCH 22.5 L, MCHC 27.8 L, RDW Std Deviation 50.3 H, RDW Coeff of Mary 17.1 H, Plt Count 290,MPV 9.9, Immature Gran % (Auto) 0.800, Neut % (Auto) 56.6, Lymph % (Auto) 28.9, Hayes % (Auto) 11.0 H, Eos % (Auto) 2.1, Baso % (Auto) 0.6, Absolute Neuts (auto)3.7, Absolute Lymphs (auto) 1.90, Nucleated RBC % 0, Sodium 138, Potassium 3.4, Chloride 88 L, Carbon Dioxide 37.1 H, Anion Gap 12, BUN 24 H, Creatinine 0.63 L,Estim Creat Clear Calc 181.63, Est GFR (MDRD) Non-Af 111, BUN/Creatinine Ratio 38.2 H, Glucose 259 H, Calcium 8.3 10/16/24 08:28: POC Glucose 277 H Microbiology: Microbiology 10/12/24 23:55 Sputum, Expectorated/Coughed Gram Stain - Final 10/12/24 23:55 Sputum, Expectorated/Coughed Respiratory Culture - Final Presumptive C albicans 10/12/24 07:56 Blood Culture (Wb) - Anticubital Left Blood Culture - Preliminary No growth in 48 hours. 10/12/24 08:25 Blood Culture (Wb) - Anticubital Left Blood Culture - Preliminary No growth in 48 hours. 10/12/24 10:42 Mucosa - Nose Respiratory Panel (PCR) - Final Human Desmet 10/12/24 14:52 Urine Catheter - Catheter Legionella Antigen - Final 10/12/24 14:52 Urine Catheter - Catheter Streptococcus pneumoniae Antigen (M- Final 10/12/24 10:40 Mucosa - Nose Coronavirus COVID-19 PCR - Final D/C Instructions Discharge Diet: 1800 Calorie Control Diet, 8 Cup Fluid Restriction and 2000 mg Sodium Diet Discharge Activity: Return to Normal Activity Call your doctor if you observe: Fever of 101 or Higher, Shortness of breath, Fainting spells and Chest pain DC O2, CPAP, BIPAP Needs Home O2 Discharge instructions: Yes Type of respiratory needs?: Oxygen Oxygen frequency: Continuous Continuous oxygen liters per minute: 7 DC home with Oxygen: Yes Home O2 MD Review: I have reviewed the oxygen testing, and the patient qualifies for home oxygen equipment and portability. The patient is mobile in the home and the community. Meaningful Use Info Meaningful Use Meaningful Use Diagnoses (Choose all that apply): CHF CHF CHARLEE/ARB ordered at discharge?: No Reason CHARLEE/ARB not ordered?: Not indicated Documented LVEF (%): 60 Ischemic Stroke Statin Dosing Therapy Reference: STATIN DOSE THERAPY REFERENCE: * Patients > 75 years receive moderate or high dose statin therapy. * Patients 75 years or YOUNGER should receive HIGH intensity statin dose unless contraindicated. You will be required to document reason for non-treatment if statin daily dose does not meet guidelines. HIGH DOSE STATIN THERAPY DAILY Atorvastatin > than or = to 40 mg Rosuvastatin > than or = to 20 mg Amlodipine + Atorvastatin > than or = to 2.5/40 mg Ezetimibe + Simvastatin 10/80 mg Simvastatin 80mg Discharge Plan Admission Admit Date/Time: 10/12/24 08:43 Attending Provider: Palmira Johnson Primary Care Provider: Rocio Bartlett Discharge Orders/Prescriptions Prescriptions: New amoxicillin-pot clavulanate 875-125 mg tablet 1 tab PO BID 7 Days Qty: 14 0RF Continued fluticasone propionate [Flonase Allergy Relief] 50 mcg/actuation spray,suspension 1 spray INTRANASAL DAILY Patient Comments: takes in once in awhile Rx Instructions: administer into each nostril Wiliam 7-7-1.5 gram powder in packet 1 ea PO BID naloxone 0.4 mg/mL syringe 0.4 mg IM Q5M PRN (Reason: opioid reversal) Rx Instructions: NTExceed 10 mg total dose/episode ondansetron 4 mg tablet,disintegrating 4 mg PO Q4H PRN (Reason: nausea) metformin 500 mg tablet 1,000 mg PO QDAY duloxetine 30 mg capsule,delayed release(DR/EC) 60 mg PO QDAY Pro-Stat Sugar Free 15-100 gram-kcal/30 mL liquid 30 ml PO BID dextrose [Glucose Gel] 40 % gel 10 g PO Q15M PRN (Reason: hypoglycemia) Rx Instructions: until symptoms of low blood sugar are controlled chlorhexidine gluconate [Hibiclens] 4 % liquid 1 applic topical .twice a week Rx Instructions: tuesday and sodium chloride 0.65 % mist 2 spray intranasal Q2H PRN (Reason: dry nasal passages) ascorbic acid (vitamin C) 500 mg tablet 500 mg PO QODAY Trulicity 3 mg/0.5 mL pen injector 3 mg subcut QWEEK Rx Instructions: once a week on Mondays pantoprazole 40 mg tablet,delayed release (DR/EC) 40 mg PO DAILY alum-mag hydroxide-simeth [Mag-Al Plus Extra Strength] 400-400-40 mg/5 mL Suspension 30 ml PO Q6H PRN PRN (Reason: Gastric Burning) Qty: 0 0RF Artificial Tears(gm-rqzb-guby) 1-0.2-0.2 % Drops 1 drp EACH EYE BID Qty: 0 0RF carvedilol 12.5 mg Tablet 12.5 mg PO BIDCM Qty: 0 0RF amlodipine 10 mg Tablet 10 mg PO DAILY Qty: 0 0RF diphenhydramine HCl [Banophen] 25 mg Capsule 25 mg PO TID PRN PRN (Reason: Itching) Qty: 0 0RF polysaccharide iron complex [Ferrex 150] 150 mg iron Capsule 150 mg PO .QOD sennosides-docusate sodium [Stool Softener-Stimulant Laxat] 8.6-50 mg Tablet 2 tab PO BID albuterol sulfate 2.5 mg /3 mL (0.083 %) solution for nebulization 2.5 mg inhalation BID Rx Instructions: And q4hr prn methocarbamol 500 mg tablet 1,000 mg PO BID PRN (Reason: cramps) Eliquis 5 mg tablet 5 mg PO BID polyethylene glycol 3350 [ClearLax] 17 gram/dose powder 17 g PO BID insulin glargine [Lantus U-100 Insulin] 100 unit/mL solution 14 unit subcut DAILY insulin lispro 100 unit/mL solution 12 unit subcut .ac loratadine [Allerclear] 10 mg tablet 10 mg PO DAILY Rx Instructions: am insulin lispro [Humalog KwikPen Insulin] 100 unit/mL Insulin Pen See Protocol subcut ACHS Protocol: 6. Sliding Scale Insulin Custom Condition: mg/dl range Dose/Route: Number of Units Condition: 251-350 Dose/Route: 2 Condition: >350 Dose/Route: 4 Protocol Text: Custom Sliding Scale Rx Instructions: 12 units before meals nystatin 100,000 unit/gram powder 1 applic topical TID fenofibrate 54 mg tablet 54 mg PO QHS simethicone [Gas Relief (simethicone)] 80 mg tablet,chewable 80 mg PO .ACTID PRN (Reason: gas) acetic acid 0.25 % solution 30 ml irrigation BID Patient Comments: [NO ORIGINAL SIG] Dakin's Solution 0.25 % solution 1 applic topical BID artificial tear([id number]) [GenTeal Tears Moderate] 0.1-0.3-0.2 % drops 1 drp EACH EYE BID PRN (Reason: dry eyes) acetaminophen 325 mg capsule 650 mg PO Q6H glipizide 2.5 mg tablet extended release 24hr 2.5 mg PO DAILY azithromycin 250 mg tablet 250 mg PO QMWF lorazepam 1 mg tablet 1 mg PO DAILY PRN (Reason: anxiety) Qty: 7 0RF oxycodone 10 mg tablet 10 mg PO .QID 2 Days Qty: 8 0RF morphine [[place]] 30 mg capsule,extend.release pellets 30 mg PO Q12H 30 Days Qty: 60 0RF Changed furosemide 20 mg tablet 40 mg PO BID Qty: 30 0RF Discontinued cefdinir 300 mg capsule 300 mg PO BID Qty: 20 0RF metronidazole 500 mg tablet 500 mg PO BID Qty: 20 0RF amoxicillin-pot clavulanate 875-125 mg tablet 1 tab PO Q12H Rx Instructions: x 10 days. Last dose 10/13/24 Referrals / Follow Up: Rocio Bartlett MD [Primary Care Provider] - Within 2 Weeks Disposition Disposition (needs filled in before D/C Order can be placed): NonSkilled NH/Intermed Care Charges/Coding Visit Charges Inpatient E&M: 57638 Disch Hosp >30min 10/16/24 1013 <Electronically signed by Palmira Johnson MD> Cosigner Signature (if applicable): CC: Dr. Palmira Johnson MD; Dr. Rocio Bartlett MD~ Signed [facility] Work Phone: [phone]) 995-443806-03-2025 Discharge summary Author Palmira Jhonson [facility] Note Date/Time October 16, 2024 10:08 am [facility] Medical Records Department [address] [place] [address] Transfer to [facility] MR#: [id number] Acct: [id number] Name: MELISSA ELIAS Rep #:[id number] : 1965 59 From: Palmira Johnson MD PCP: Dr. Rocio Bartlett MD Status:A DM IN Certification of patient admission REQUIRED AT TIME OF ADMISSION. I CERTIFY THAT POST-HOSPITAL ECF SERVICES ARE REQUIRED TO BE GIVEN ON AN IN-PATIENT BASIS BECAUSE OF THE ABOVE NAMED PATIENT'S NEED FOR [facility] CARE ON A CONTINUING BASIS FOR THE CONDITION(S) FOR WHICH HE/SHE WAS RECEIVING IN-PATIENT HOSPITAL SERVICES PRIOR TO HIS/HER TRANSFER TO [facility]. 10/16/24 1008<Electronically signed by Palmira Johnson MD> Diet Diet Order/Speech Therapy: INPATIENT Hospital Diet / Speech Therapy Order(s) 10/12/24 11:20 Diet: Cardiac: Calorie-Controlled Food consistency:: Regular Liquid Consistency:: Regular/Thin Dietary Modifications:: Consistent Carbohydrate Type of Dietary Supplement:: Wiliam Diet Comments: wiliam w/ breakfast and dinner How many daily calories?: 2000 calorie Routine Orders/Code Status Code Status: Full Code DC O2, CPAP, BIPAP needs Home O2 Discharge instructions: Yes Type of respiratory needs?: Oxygen Oxygen frequency: Continuous Continuous oxygen liters per minute: 7 Wound(s) coccyx: Wound Type: Pressure Injury sacrum: Wound Type: Pressure Injury Dressing Change: Dakins moistened gauze right buttock/ischium: Wound Type: Pressure Injury Dressing Change: Dakins moistened gauze Therapies Physical Therapy: Eval and Treat Occupational Therapy: Eval and Treat Problem/Diagnosis (1) Hypoxia: Status: Acute Code(s): R09.02 - Hypoxemia (2) Pneumonia: Status: Acute Code(s): J18.9 - Pneumonia, unspecified organism Plan Patient is a 59-year-old gentleman resident of [facility] care facility brought inwith progressive shortness of breath 1. Acute hypoxic respiratory failure. ? Secondary to pneumonia admitted to monitored bed for subsequent management. Patient placed on supplemental oxygen titrated to keep saturation greater than 90 ? 10/14/2024 patient had to be placed on noninvasive ventilation via Airvo plan isto titrate to keep saturation greater than 90 and wean down to nasal cannula prior to patient being assessed for possible discharge ? 10/15/2024; patient remains on Airvo we will attempt to wean down to nasal cannula 2. Viral pneumonia with suspected superimposed bacterial pneumonia given the fact the patient is resident at [facility] and had failed outpatient. Patient was started on Zosyn as well as azithromycin. Ordered sputum cultures, viral respiratory panel, COVID assay. Also ordered CTA which did show Left lower lobe consolidation as well as patchy infiltrates in both upper lobes and left lower lobe. ? 10/13/2024Patient viral respiratory culture came back positive for human metapneumovirus infection. Subsequently placed in ICU 3. Acute on chronic congestive heart failure ? Complicating care patient is on p.o. furosemide held started on IV furosemide echo ordered as part of his management. Patient was also placed on strict inputand output, low-sodium diet, daily weights 4. History of bilateral pulmonary embolism ? CTA obtained on admission was negative for PE patient is on apixaban discontinued 5. Elevated troponin ? Secondary to demand ischemia from above echo has been ordered to assess for regional wall motion abnormalities. If any abnormalities found on patient echo consultation will be placed to cardiology 6. Diabetes mellitus type 2 ? Patient is on long-acting insulin in addition to scheduled short acting insulin did continue with home regiment. Also placed on 1800 ADA diet in addition to Accu- Cheks ACHS with sliding scale coverage 7. Anemia ? Secondary to chronic disorder monitoring H&H and transfuse if patient becomes symptomatic or hemoglobin falls below 7 8. Unstageable sacral decubitus ? Present on admission consult has been placed to wound care nurse 9. Paraplegia ? Secondary to accidental fall ? Will continue supportive care 10. Class III obesity with BMI of 51.2 ? Complicating care 11. Obstructive sleep apnea ? BiPAP therapy at night 12. Essential tension ? Patient blood pressure remained stable 13. DVT prophylaxis ? Patient already on apixaban Allergies/Procedures Done in Hospital Allergies No Known Allergies Allergy (Verified 10/12/24 07:34) Type of Care/Length of Stay Estimated LOS: More Than 30 Days Type of Care Needed: Intermediate Rehab Potential: Fair Prognosis: Fair Additional Orders/Day of Discharge Day of Discharge: 10/16/24 Dietary and Speech Recommendations Dietitian Recommendations/Changes: Will continue 2000 calorie Consistent CHO/ Cardiac diet as ordered. Continue wiliam BID with medpass. Will discontinue wiliam BID with breakfast and dinner due to duplicate orders forjuven. Will monitor weight trends. Discharge Plan Admission Admit Date/Time: 10/12/24 08:43 Attending Provider: Palmira Johnson Primary Care Provider: Rocio Bartlett Discharge Orders/Prescriptions Prescriptions: New amoxicillin-pot clavulanate 875-125 mg tablet 1 tab PO BID 7 Days Qty: 14 0RF Continued fluticasone propionate [Flonase Allergy Relief] 50 mcg/actuation spray,suspension 1 spray INTRANASAL DAILY Patient Comments: takes in once in awhile Rx Instructions: administer into each nostril Wiliam 7-7-1.5 gram powder in packet 1 ea PO BID naloxone 0.4 mg/mL syringe 0.4 mg IM Q5M PRN (Reason: opioid reversal) Rx Instructions: NTExceed 10 mg total dose/episode ondansetron 4 mg tablet,disintegrating 4 mg PO Q4H PRN (Reason: nausea) metformin 500 mg tablet 1,000 mg PO QDAY duloxetine 30 mg capsule,delayed release(DR/EC) 60 mg PO QDAY Pro-Stat Sugar Free 15-100 gram-kcal/30 mL liquid 30 ml PO BID dextrose [Glucose Gel] 40 % gel 10 g PO Q15M PRN (Reason: hypoglycemia) Rx Instructions: until symptoms of low blood sugar are controlled chlorhexidine gluconate [Hibiclens] 4 % liquid 1 applic topical .twice a week Rx Instructions: tuesday and sodium chloride 0.65 % mist 2 spray intranasal Q2H PRN (Reason: dry nasal passages) ascorbic acid (vitamin C) 500 mg tablet 500 mg PO QODAY Trulicity 3 mg/0.5 mL pen injector 3 mg subcut QWEEK Rx Instructions: once a week on Mondays pantoprazole 40 mg tablet,delayed release (DR/EC) 40 mg PO DAILY alum-mag hydroxide-simeth [Mag-Al Plus Extra Strength] 400-400-40 mg/5 mL Suspension 30 ml PO Q6H PRN PRN (Reason: Gastric Burning) Qty: 0 0RF Artificial Tears(xa-tnrh-lzqk) 1-0.2-0.2 % Drops 1 drp EACH EYE BID Qty: 0 0RF carvedilol 12.5 mg Tablet 12.5 mg PO BIDCM Qty: 0 0RF amlodipine 10 mg Tablet 10 mg PO DAILY Qty: 0 0RF diphenhydramine HCl [Banophen] 25 mg Capsule 25 mg PO TID PRN PRN (Reason: Itching) Qty: 0 0RF polysaccharide iron complex [Ferrex 150] 150 mg iron Capsule 150 mg PO .QOD sennosides-docusate sodium [Stool Softener-Stimulant Laxat] 8.6-50 mg Tablet 2 tab PO BID albuterol sulfate 2.5 mg /3 mL (0.083 %) solution for nebulization 2.5 mg inhalation BID Rx Instructions: And q4hr prn methocarbamol 500 mg tablet 1,000 mg PO BID PRN (Reason: cramps) Eliquis 5 mg tablet 5 mg PO BID polyethylene glycol 3350 [ClearLax] 17 gram/dose powder 17 g PO BID insulin glargine [Lantus U-100 Insulin] 100 unit/mL solution 14 unit subcut DAILY insulin lispro 100 unit/mL solution 12 unit subcut .ac loratadine [Allerclear] 10 mg tablet 10 mg PO DAILY Rx Instructions: am insulin lispro [Humalog KwikPen Insulin] 100 unit/mL Insulin Pen See Protocol subcut ACHS Protocol: 6. Sliding Scale Insulin Custom Condition: mg/dl range Dose/Route: Number of Units Condition: 251-350 Dose/Route: 2 Condition: >350 Dose/Route: 4 Protocol Text: Custom Sliding Scale Rx Instructions: 12 units before meals nystatin 100,000 unit/gram powder 1 applic topical TID fenofibrate 54 mg tablet 54 mg PO QHS simethicone [Gas Relief (simethicone)] 80 mg tablet,chewable 80 mg PO .ACTID PRN (Reason: gas) acetic acid 0.25 % solution 30 ml irrigation BID Patient Comments: [NO ORIGINAL SIG] Dakin's Solution 0.25 % solution 1 applic topical BID artificial tear(ikobr-jtl-pzi) [GenTeal Tears Moderate] 0.1-0.3-0.2 % drops 1 drp EACH EYE BID PRN (Reason: dry eyes) acetaminophen 325 mg capsule 650 mg PO Q6H glipizide 2.5 mg tablet extended release 24hr 2.5 mg PO DAILY azithromycin 250 mg tablet 250 mg PO QMWF lorazepam 1 mg tablet 1 mg PO DAILY PRN (Reason: anxiety) Qty: 7 0RF oxycodone 10 mg tablet 10 mg PO .QID 2 Days Qty: 8 0RF morphine [[place]] 30 mg capsule,extend.release pellets 30 mg PO Q12H 30 Days Qty: 60 0RF Changed furosemide 20 mg tablet 40 mg PO BID Qty: 30 0RF Discontinued cefdinir 300 mg capsule 300 mg PO BID Qty: 20 0RF metronidazole 500 mg tablet 500 mg PO BID Qty: 20 0RF amoxicillin-pot clavulanate 875-125 mg tablet 1 tab PO Q12H Rx Instructions: x 10 days. Last dose 10/13/24 Referrals / Follow Up: Rocio Bartlett MD [Primary Care Provider] - Disposition Disposition (needs filled in before D/C Order can be placed): NonSkilled NH/Intermed Care 10/16/24 1008 <Electronically signed by Palmira Johnson MD> Cosigner Signature (if applicable): CC: Dr. Rocio Bartlett MD ~ [facility] Work Phone: 1(356) 348-906706-03-2025 [facility]06-02-2025 Progress note Author Palmira Johnson [facility] Note Date/Time October 15, 2024 9:51a m [facility] Medical Records Department [address] [place] [address] Progress Note - Hospitalist 10/15/24 0839 MR#: [id number] Acct: [id number] Name: MELISSA ELIAS Rep #:[id number] : 1965 59 From: Palmira Johnson MD PCP: Dr. Rocio Bartlett MD Status:A DM IN Location: [place] [address] Reason for Visit Reason for Visit: Diagnoses Pneumonia, unspecified organism (10/12/24) Hypoxemia (10/12/24) Subjective Subjective Patient remains on Airvo. Plan is to try to wean down to nasal cannula and assess for possible discharge Objective Data Objective Data Vital Signs: Vital Signs Temp Pulse Resp BP Pulse Ox O2 Del Method O2 Flow Rate 99.1 F 105 H 20 H 125/70 H 93 Airvo 40 10/15/24 02:50 10/15/24 06:48 10/15/24 06:48 10/15/24 05:41 10/15/24 06:48 10/15/24 06:48 10/15/24 06:48 FiO2 50 10/15/24 06:48 Oxygen Flow Rate (L/min) 40 Oxygen Delivery Method Airvo Weight: 148.7 kg Body Mass Index (BMI) 51.3 Intake & Output: Intake and Output for Last 24 Hours 10/13/24 10/14/24 10/15/24 23:59 23:59 23:59 Intake Total 1482.75 / 1482.75 965 / 965 655.5 / 655.5 Output Total 4675 / 4675 3425 / 3425 1950 / 1950 Balance -3192.25 / -3192.25 -2460 / -2460 -1294.5 / -1294.5 Lab / Micro Data 10/15/24 05:21 10/15/24 05:21 Labs: Laboratory Results - last 24 hr 10/14/24 09:16: POC Glucose 185 H 10/14/24 11:54: POC Glucose 234 H 10/14/24 16:18: POC Glucose 177 H 10/14/24 20:59: POC Glucose 174 H 10/15/24 05:21: WBC 6.6, RBC 4.50 L, Hgb 10.1 L, Hct 36.6 L, MCV 81.3, MCH 22.4 L, MCHC 27.6 L, RDW Std Deviation 51.4 H, RDW Coeff of Mary 17.4 H, Plt Count 321, MPV 9.8, Immature Gran % (Auto) 0.500, Neut % (Auto) 60.1, Lymph % (Auto) 22.1, Hayes % (Auto) 15.5 H, Eos % (Auto) 1.2, Baso % (Auto) 0.6, Absolute Neuts (auto) 4.0, Absolute Lymphs (auto) 1.46, Nucleated RBC % 0.3, Sodium 135, Potassium 3.6, Chloride 86 L, Carbon Dioxide 39.0 H, Anion Gap 10, BUN 26 H, Creatinine 0.78, Estim Creat Clear Calc 146.52, Est GFR (MDRD) Non-Af 104, BUN/Creatinine Ratio 32.9 H, Glucose 194 H, Calcium 8.7 Micro: Microbiology 10/12/24 07:56 Blood Culture (Wb) - Anticubital Left Blood Culture - Preliminary No growth in 48 hours. 10/12/24 08:25 Blood Culture (Wb) - Anticubital Left Blood Culture - Preliminary No growth in 48 hours. 10/12/24 23:55 Sputum, Expectorated/Coughed Gram Stain - Final 10/12/24 10:42 Mucosa - Nose Respiratory Panel (PCR) - Final Human Desmet 10/12/24 14:52 Urine Catheter - Catheter Legionella Antigen - Final 10/12/24 14:52 Urine Catheter - Catheter Streptococcus pneumoniae Antigen (M- Final 10/12/24 10:40 Mucosa - Nose Coronavirus COVID-19 PCR - Final Rhythm Strip Rhythm Strip: Sinus Tach Rate: 103 Ectopy: None Physical Exam Narrative GENERAL: cooperative HEENT: Atraumatic; normocephalic EYES; Anicteric, Normal Conjunctiva NECK; supple, normal thyroid, RESPIRATORY: Diminished to auscultation CARDIOVASCULAR: Regular S1 S2, GI: soft, normoactive bowel sounds, : No Renal angle tenderness; EXTREMITIES: No edema, no clubbing, MUSCULOSKELETAL: no muscle wasting NEURO: Awake; paraplegic SKIN: Sacral decubitus present on admission PSYCH; Flat affect Assessment & Plan Assessment/Plan (1) Hypoxia: (2) Pneumonia: PLAN: Plan Patient is a 59-year-old gentleman resident [facility] brought inwith progressive shortness of breath 1. Acute hypoxic respiratory failure. ? Secondary to pneumonia admitted to monitored bed for subsequent management. Patient placed on supplemental oxygen titrated to keep saturation greater than 90 ? 10/14/2024 patient had to be placed on noninvasive ventilation via Airvo plan isto titrate to keep saturation greater than 90 and wean down to nasal cannula prior to patient being assessed for possible discharge ? 10/15/2024; patient remains on Airvo we will attempt to wean down to nasal cannula 2. Viral pneumonia with suspected superimposed bacterial pneumonia given the fact the patient is resident at [facility] and had failed outpatient. Patient was started on Zosyn as well as azithromycin. Ordered sputum cultures, viral respiratory panel, COVID assay. Also ordered CTA which did show Left lower lobe consolidation as well as patchy infiltrates in both upper lobes and left lower lobe. ? 10/13/2024Patient viral respiratory culture came back positive for human metapneumovirus infection. Subsequently placed in ICU 3. Acute on chronic congestive heart failure ? Complicating care patient is on p.o. furosemide held started on IV furosemide echo ordered as part of his management. Patient was also placed on strict inputand output, low-sodium diet, daily weights 4. History of bilateral pulmonary embolism ? CTA obtained on admission was negative for PE patient is on apixaban discontinued 5. Elevated troponin ? Secondary to demand ischemia from above echo has been ordered to assess for regional wall motion abnormalities. If any abnormalities found on patient echo consultation will be placed to cardiology 6. Diabetes mellitus type 2 ? Patient is on long-acting insulin in addition to scheduled short acting insulin did continue with home regiment. Also placed on 1800 ADA diet in addition to Accu- Cheks ACHS with sliding scale coverage 7. Anemia ? Secondary to chronic disorder monitoring H&H and transfuse if patient becomes symptomatic or hemoglobin falls below 7 8. Unstageable sacral decubitus ? Present on admission consult has been placed to wound care nurse 9. Paraplegia ? Secondary to accidental fall ? Will continue supportive care 10. Class III obesity with BMI of 51.2 ? Complicating care 11. Obstructive sleep apnea ? BiPAP therapy at night 12. Essential tension ? Patient blood pressure remained stable 13. DVT prophylaxis ? Patient already on apixaban Charges/Coding Visit Charges Inpatient E&M: 87000 Subs Hosp L2 10/15/24 0951 <Electronically signed by Palmira Johnson MD> Cosigner Signature (if applicable): CC: ~ Signed [facility] Work Phone: [phone]) 853-728806-01-2025 Progress note Author Palmira Johnson [facility] Note Date/Time October 14, 2024 9:13a m [facility] Medical Records Department [address] [place] [address] Progress Note - Hospitalist 10/14/24 0736 MR#: [id number] Acct: [id number] Name: MELISSA ELIAS Rep #:[id number] : 1965 59 From: Palmira Johnson MD PCP: Dr. Rocio Bartlett MD Status:A DM IN Location: [place] [address] Reason for Visit Reason for Visit: Diagnoses Pneumonia, unspecified organism (10/12/24) Hypoxemia (10/12/24) Subjective Subjective Patient seen complaining of significant back pain. Patient remains on noninvasive ventilation via Airvo Objective Data Objective Data Vital Signs: Vital Signs Temp Pulse Resp BP Pulse Ox O2 Del Method O2 Flow Rate 98.3 F 95 24 H 151/80 H 94 Airvo 50 10/14/24 05:11 10/14/24 07:16 10/14/24 07:16 10/14/24 05:11 10/14/24 07:16 10/14/24 07:16 10/14/24 07:16 FiO2 56 10/14/24 07:16 Oxygen Flow Rate (L/min) 50 Oxygen Delivery Method Airvo Weight: 150.3 kg Body Mass Index (BMI) 46.2 Intake & Output: Intake and Output for Last 24 Hours 10/12/24 10/13/24 10/14/24 23:59 23:59 23:59 Intake Total 711.75 / 711.75 1482.75 / 1482.75 490 / 490 Output Total 3450 / 3450 4675 / 4675 475 / 475 Balance -2738.25 / -2738.25 -3192.25 / -3192.25 Lab / Micro Data 10/14/24 07:08 10/14/24 07:08 Labs: Laboratory Results - last 24 hr 10/13/24 05:42: Sodium 136, Potassium 4.7, Chloride 93 L, Carbon Dioxide 33.1 H,Anion Gap 11, BUN 19, Creatinine 0.70, Estim Creat Clear Calc 165.44, Est GFR (MDRD) Non-Af 107, BUN/Creatinine Ratio 27.0 H, Glucose 340 H, Calcium 8.9, Phosphorus 3.1, Magnesium 2.0 10/13/24 07:45: POC Glucose 297 H 10/13/24 11:40: POC Glucose 245 H 10/13/24 17:11: POC Glucose 266 H 10/13/24 21:14: POC Glucose 250 H Micro: Microbiology 10/12/24 23:55 Sputum, Expectorated/Coughed Gram Stain - Final 10/12/24 10:42 Mucosa - Nose Respiratory Panel (PCR) - Final Human Desmet 10/12/24 14:52 Urine Catheter - Catheter Legionella Antigen - Final 10/12/24 14:52 Urine Catheter - Catheter Streptococcus pneumoniae Antigen (M- Final 10/12/24 10:40 Mucosa - Nose Coronavirus COVID-19 PCR - Final Radiography Diagnostic Testing: Radiology Impression Echocardiogram 10/13/24 05:55 Interpretation Summary The estimated ejection fraction is 55-60 %. Ordering Physician: Palmira Johnson Referring Physician: Rocio Bartlett Performed By: Nabila Haro RDCS Rhythm Strip Rhythm Strip: Sinus Tach Rate: 103 Ectopy: None Physical Exam Narrative GENERAL: cooperative HEENT: Atraumatic; normocephalic EYES; Anicteric, Normal Conjunctiva NECK; supple, normal thyroid, RESPIRATORY: Diminished to auscultation CARDIOVASCULAR: Regular S1 S2, GI: soft, normoactive bowel sounds, : No Renal angle tenderness; EXTREMITIES: No edema, no clubbing, MUSCULOSKELETAL: no muscle wasting NEURO: Awake; paraplegic SKIN: Sacral decubitus present on admission PSYCH; Flat affect Assessment & Plan Assessment/Plan (1) Hypoxia: (2) Pneumonia: PLAN: Plan Patient is a 59-year-old gentleman resident of [facility] brought inwith progressive shortness of breath 1. Acute hypoxic respiratory failure. ? Secondary to pneumonia admitted to monitored bed for subsequent management. Patient placed on supplemental oxygen titrated to keep saturation greater than 90 ? 10/14/2024 patient had to be placed on noninvasive ventilation via Airvo plan isto titrate to keep saturation greater than 90 and wean down to nasal cannula prior to patient being assessed for possible disc 2. Viral pneumonia with suspected superimposed bacterial pneumonia given the fact the patient is resident at [facility] and had failed outpatient. Patient was started on Zosyn as well as azithromycin. Ordered sputum cultures, viral respiratory panel, COVID assay. Also ordered CTA which did show Left lower lobe consolidation as well as patchy infiltrates in both upper lobes and left lower lobe. ? 10/13/2024Patient viral respiratory culture came back positive for human metapneumovirus infection. Subsequently placed in ICU 3. Acute on chronic congestive heart failure ? Complicating care patient is on p.o. furosemide held started on IV furosemide echo ordered as part of his management. Patient was also placed on strict inputand output, low-sodium diet, daily weights 4. History of bilateral pulmonary embolism ? CTA obtained on admission was negative for PE patient is on apixaban discontinued 5. Elevated troponin ? Secondary to demand ischemia from above echo has been ordered to assess for regional wall motion abnormalities. If any abnormalities found on patient echo consultation will be placed to cardiology 6. Diabetes mellitus type 2 ? Patient is on long-acting insulin in addition to scheduled short acting insulin did continue with home regiment. Also placed on 1800 ADA diet in addition to Accu- Cheks ACHS with sliding scale coverage 7. Anemia ? Secondary to chronic disorder monitoring H&H and transfuse if patient becomes symptomatic or hemoglobin falls below 7 8. Unstageable sacral decubitus ? Present on admission consult has been placed to wound care nurse 9. Paraplegia ? Secondary to accidental fall ? Will continue supportive care 10. Class III obesity with BMI of 51.2 ? Complicating care 11. Obstructive sleep apnea ? BiPAP therapy at night 12. Essential tension ? Patient blood pressure remained stable 13. DVT prophylaxis ? Patient already on apixaban Charges/Coding Visit Charges Inpatient E&M: 83296 Subs Hosp L2 10/14/2413 <Electronically signed by Palmira Johnson MD> Cosigner Signature (if applicable): CC: ~ Signed [facility] Work Phone: [phone]) 629-900405-31-2025 Progress note Author Palmira Johnson [facility] Note Date/Time October 13, 2024 9:29a m [facility] Medical Records Department [address] [place] [address] Progress Note - Hospitalist 10/13/24924 MR#: [id number] Acct: [id number] Name: MELISSA ELIAS Rep #:[id number] : 1965 59 From: Palmira Johnson MD PCP: Dr. Rocio Bartlett MD Status:A DM IN Location: [place] [address] Reason for Visit Reason for Visit: Diagnoses Pneumonia, unspecified organism (10/12/24) Hypoxemia (10/12/24) Subjective Subjective Patient viral respiratory culture came back positive for human metapneumovirus infection. Subsequently placed in ICU Objective Data Objective Data Vital Signs: Vital Signs Temp Pulse Resp BP Pulse Ox O2 Del Method O2 Flow Rate 98.0 F 93 16 153/80 H 90 Airvo 50 10/13/24 08:35 10/13/24 08:35 10/13/24 08:35 10/13/24 08:35 10/13/24 08:41 10/13/24 08:41 10/13/24 07:36 FiO2 50 10/13/24 07:36 Oxygen Flow Rate (L/min) 50 Oxygen Delivery Method Airvo Weight: 152 kg Body Mass Index (BMI) 52.4 Intake & Output: Intake and Output for Last 24 Hours 10/11/24 10/12/24 10/13/24 23:59 23:59 23:59 Intake Total 711.75 / 711.75 / 50 Output Total 3450 / 3450 1750 / 1750 Balance -2738.25 / -2738.25 -1700 / -1700 Lab / Micro Data 10/13/24 05:42 10/13/24 05:42 Labs: Laboratory Results - last 24 hr 10/12/24 07:56: D-Dimer Quant (PE/DVT) 0.90 H* 10/12/24 10:00: Troponin T Hi Sens 2 Hr 102 H* 10/12/24 12:08: POC Glucose 153 H 10/12/24 12:50: Troponin T Hi Sens 4Hr 111 H* 10/12/24 17:03: POC Glucose 247 H 10/12/24 22:17: POC Glucose 242 H 10/13/24 05:42: WBC 6.7, RBC 4.42 L, Hgb 10.1 L, Hct 36.6 L, MCV 82.8, MCH 22.9 L, MCHC 27.6 L, RDW Std Deviation 52.0 H, RDW Coeff of Mary 17.2 H, Plt Count 312, MPV 9.4, Immature Gran % (Auto) 1.500 H, Neut % (Auto) 78.9 H, Lymph % (Auto) 12.2 L, Hayes % (Auto) 7.1, Eos % (Auto) 0.0, Baso % (Auto) 0.3, Absolute Neuts (auto) 5.3, Absolute Lymphs (auto) 0.81 L, Nucleated RBC % 0.3, Sodium 136, Potassium 4.7, Chloride 93 L, Carbon Dioxide 33.1 H, Anion Gap 11, BUN 19, Creatinine 0.70, Estim Creat Clear Calc 165.44, Est GFR (MDRD) Non-Af 107, BUN/Creatinine Ratio 27.0 H, Glucose 340 H, Calcium 8.9, Phosphorus 3.1, Magnesium 2.0 10/13/24 07:45: POC Glucose 297 H Micro: Microbiology 10/12/24 10:42 Mucosa - Nose Respiratory Panel (PCR) - Final Human Desmet 10/12/24 14:52 Urine Catheter - Catheter Legionella Antigen - Final 10/12/24 14:52 Urine Catheter - Catheter Streptococcus pneumoniae Antigen (M- Final 10/12/24 10:40 Mucosa - Nose Coronavirus COVID-19 PCR - Final Radiography Diagnostic Testing: Radiology Impression Chest CTA 10/12/24 11:41 IMPRESSION: Left lower lobe consolidation as well as patchy infiltrates in both upper lobes and left lower lobe. Follow-up recommended. Reading Location: [place] [address] Rhythm Strip Rhythm Strip: Sinus Tach Rate: 103 Ectopy: None Physical Exam Narrative GENERAL: cooperative HEENT: Atraumatic; normocephalic EYES; Anicteric, Normal Conjunctiva NECK; supple, normal thyroid, RESPIRATORY: Diminished to auscultation CARDIOVASCULAR: Regular S1 S2, GI: soft, normoactive bowel sounds, : No Renal angle tenderness; EXTREMITIES: No edema, no clubbing, MUSCULOSKELETAL: no muscle wasting NEURO: Awake; paraplegic SKIN: Sacral decubitus present on admission PSYCH; Flat affect Assessment & Plan Assessment/Plan (1) Hypoxia: (2) Pneumonia: PLAN: Plan Patient is a 59-year-old [facility] in[facility] progressive shortness of breath 1. Acute hypoxic respiratory insufficiency ? Secondary to pneumonia admitted to monitored bed for subsequent management. Patient placed on supplemental oxygen titrated to keep saturation greater than 90 2. Viral pneumonia with suspected superimposed bacterial pneumonia given the fact the patient is [facility] and had failed outpatient. Patient was started on Zosyn as well as azithromycin. Ordered sputum cultures, viral respiratory panel, COVID assay. Also ordered CTA which did show Left lower lobe consolidation as well as patchy infiltrates in both upper lobes and left lower lobe. ? 10/13/2024Patient viral respiratory culture came back positive for human metapneumovirus infection. Subsequently placed in ICU 3. Acute on chronic congestive heart failure ? Complicating care patient is on p.o. furosemide held started on IV furosemide echo ordered as part of his management. Patient was also placed on strict inputand output, low-sodium diet, daily weights 4. History of bilateral pulmonary embolism ? CTA obtained on admission was negative for PE patient is on apixaban discontinued 5. Elevated troponin ? Secondary to demand ischemia from above echo has been ordered to assess for regional wall motion abnormalities. If any abnormalities found on patient echo consultation will be placed to cardiology 6. Diabetes mellitus type 2 ? Patient is on long-acting insulin in addition to scheduled short acting insulin did continue with home regiment. Also placed on 1800 ADA diet in addition to Accu- Cheks ACHS with sliding scale coverage 7. Anemia ? Secondary to chronic disorder monitoring H&H and transfuse if patient becomes symptomatic or hemoglobin falls below 7 8. Unstageable sacral decubitus ? Present on admission consult has been placed to wound care nurse 9. Paraplegia ? Secondary to accidental fall ? Will continue supportive care 10. Class III obesity with BMI of 51.2 ? Complicating care 11. Obstructive sleep apnea ? BiPAP therapy at night 12. Essential tension ? Patient blood pressure remained stable 13. DVT prophylaxis ? Patient already on apixaban Charges/Coding Visit Charges Inpatient E&M: 26567 Subs Hosp L2 10/13/24 0929 <Electronically signed by Palmira Johnson MD> Cosigner Signature (if applicable): CC: ~ Signed [facility] Work Phone: [phone] History and physical note Author Palmira Johnson [facility] Note Date/Time October 12, 2024 1:47p m [facility] Medical Records Department [address] [place] [address] H&P Exam - Hospitalist 10/12/24 0844 MR#: [id number] Acct: [id number] Name: MELISSA ELIAS Rep #:[id number] : 1965 59 From: Palmira Johnson MD PCP: Dr. Rocio Bartlett MD Status:A DM IN Location: [facility] [id number] HPI - General General Date of Admission: 10/12/24 Date of Service: 10/12/24 Chief Complaint: Shortness of breath HPI Narrative MELISSA ELIAS, is a 59 M paraplegic following an accidental fall, diabetes mellitus type 2, essential hypertension, currently resident at an extended care facility who presented to the emergency department with shortness of breath.Per patient he had been diagnosed with pneumonia and treated at his extended care facility with oral antibiotics for the past 3 days. Patient was however noted to be significantly hypoxic with oxygen saturation in the 60s on the morning of his admission nurse stating patient being brought to the ED. Patient was diagnosed with acute hypoxic respiratory insufficiency admitted to monitored bedfor subsequent management. Further evaluation with CT of the chest was negativefor PE however did demonstrate infiltrate consistent with pneumonia. [facility] Medical History VRE (vancomycin resistant enterococcus) culture positive Decubitus ulcer of sacral region, stage 4 Lymphedema BATOOL treated with BiPAP Abscess of back Constipation Pressure ulcer of sacral region Chronic indwelling Bartlett catheter Blood loss anemia Clot retention of urine Pressure injury, unstageable, with eschar Bilateral pulmonary embolism Rhabdomyolysis Community acquired pneumonia Hypoglycemia Acute osteomyelitis of spine Former tobacco use Paraplegia Cellulitis of leg without foot, right Anemia BMI greater than 40 Type 2 diabetes mellitus HTN (hypertension) H/o back surgery Home Medications ?Medication ?Instructions ?Recorded ?Last Taken ?Type fluticasone propionate 50 1 spray intranasal DAILY haim rtness 03/03/20 Unknown History mcg/actuation nasal of breath spray,suspension (Flonase Allergy Relief) apixaban 5 mg tablet (Eliquis) 5 mg PO BID 07/29/23 History methocarbamol 500 mg tablet 1,000 mg PO BID PRN cramps 07/29/23 08/31/23 History polyethylene glycol 3350 17 17 g PO BID constipation 0 07/29/23 07/29/23 History gram/dose oral powder (ClearLax) pantoprazole 40 mg tablet,delayed 40 mg PO DAILY stoma ch 08/31/23 08/31/23 History release aluminum-mag hydroxide-simethicone 30 ml PO Q6H PRN AK N Gastric 09/13/23 Unknown Rx 400 mg-400 mg-40 mg/5 mL oral susp Burning #0 mL (Mag-Al Plus Extra Strength) amlodipine 10 mg tablet 10 mg PO DAILY #0 tabs 09/12 Unknown Rx carvedilol 12.5 mg tablet 12.5 mg PO BIDCM #0 tabs Unknown Rx diphenhydramine HCl 25 mg capsule 25 mg PO TID PRN PRN Itching #0 09/13/23 Unknown Rx (Banophen) caps peg [id number] 1 1 drp EACH EYE BID dry eyes #0 mL 09/13/23 Unknown Rx %-0.2 %-0.2 % eye drops (Artificial Tears ([id number])) polysaccharide iron complex 150 mg 150 mg PO .QOD supp lement 10/15/23 Unknown History iron capsule (Ferrex) sennosides 8.6 mg-docusate sodium 2 tab PO BID Constip ation 10/15/23 Unknown History 50 mg tablet (Stool Softener-Stimulant Laxative) insulin lispro 100 unit/mL See Protocol subcut ACHS bl ood 10/23/23 Unknown History subcutaneous pen (Humalog KwikPen sugars (U-100) Insulin) loratadine 10 mg tablet 10 mg PO DAILY allergies 02/06 Unknown History (Allerclear) albuterol sulfate 2.5 mg/3 mL 2.5 mg inhalation BID wh eezing 10/25/23 Unknown History (0.083 %) solution for nebulization furosemide 20 mg tablet 20 mg PO DAILY 02/09/24 Unkn own History arginine 7 gram-glutamine 7 1 ea PO BID wound healing 03/22/24 Unknown History gram-calcium HMB 1.5 gram oral powder pack (Wiliam) amino acids-protein hydrolysate 15 30 ml PO BID Unknown History gram-100 kcal/30 mL oral liquid (Pro-Stat Sugar Free) ascorbic acid (vitamin C) 500 mg 500 mg PO QODAY suppl ement 03/26/24 Unknown History tablet chlorhexidine gluconate 4 % 1 applic topical .twice a week 03/26/24 Unknown History topical liquid (Hibiclens) dextrose 40 % oral gel (Glucose 10 g PO Q15M PRN hypog lycemia 03/26/24 Unknown History Gel) naloxone 0.4 mg/mL injection 0.4 mg IM Q5M PRN opioid reversal 03/26/24 Unknown History syringe ondansetron 4 mg disintegrating 4 mg PO Q4H PRN nausea 03/26/24 Unknown History tablet sodium chloride 0.65 % nasal mist 2 spray intranasal Q 2H PRN dry 03/26/24 Unknown History nasal passages dulaglutide 3 mg/0.5 mL 3 mg subcut QWEEK diabetes 0 07/18/24 Unknown History subcutaneous pen injector (Trulicity) duloxetine 30 mg capsule,delayed 60 mg PO QDAY 5 Unknown History release insulin glargine 100 unit/mL 14 unit subcut DAILY diab etes 07/18/24 Unknown History subcutaneous solution (Lantus mellitus type 2 U-100 Insulin) insulin lispro 100 unit/mL 12 unit subcut .ac diabetes 07/18/24 Unknown History subcutaneous solution metformin 500 mg tablet 1,000 mg PO QDAY diabetes Unknown History fenofibrate 54 mg tablet 54 mg PO QHS cholesterol 09/07 Unknown History lorazepam 1 mg tablet 1 mg PO DAILY PRN anxiety Unknown History nystatin 100,000 unit/gram topical 1 applic topical TI D rednes 08/17/24 Unknown History powder cefdinir 300 mg capsule 300 mg PO BID #20 caps 09/07 Unknown Rx metronidazole 500 mg tablet 500 mg PO BID #20 tabs Unknown Rx oxycodone 10 mg tablet 10 mg PO .QID pain 30 days # 120 10/09/24 Unknown Rx tabs morphine 30 mg capsule,extended 30 mg PO Q12H pain 30 days #60 caps 10/10/24 Unknown Rx release pellets ([place]) acetaminophen 325 mg capsule 650 mg PO Q6H pain Unknown History acetic acid 0.25 % irrigation 30 ml irrigation BID sup rapubic 10/12/24 Unknown History solution cath amoxicillin 875 mg-potassium 1 tab PO Q12H pneumonia 0 10/12/24 Unknown History clavulanate 125 mg tablet artificial 1 drp EACH EYE BID PRN dry e yes 10/12/24 Unknown History tears(odhufwd-aalhuuni-zkobuza) 0.1 %-0.3 %-0.2 % eye drops (GenTeal Tears Moderate) azithromycin 250 mg tablet 250 mg PO QMWF wounds 10/12 Unknown History glipizide 2.5 mg tablet, extended 2.5 mg PO DAILY diab etes 10/12/24 Unknown History release 24 hr simethicone 80 mg chewable tablet 80 mg PO .ACTID PRN gas 10/12/24 Unknown History (Gas Relief (simethicone)) sodium hypochlorite 0.25 % 1 applic topical BID wound 10/12/24 Unknown History solution (Dakin's Solution) Allergy/AdvReac Type Severity Reaction Status Date / Time No Known Allergies Allergy Verified 10/12/24 07:34 Family History Mother Hypertension Hypotension Diabetes Arthritis Father Hypertension Hypotension Heart disease Status post double vessel coronary artery bypass angina Arthritis Grandfather Prostate cancer Grandmother Uterine cancer Surgical History History of hip replacement Colostomy status Hx of spinal surgery H/O sinus surgery Social History housing: alf current occupational status: employed and retired Smoking Status: Former smoker alcohol intake: never substance use type: does not use do you feel safe at home: Yes ROS ROS Narrative GENERAL: denies fever, chills, night sweats, weight loss, anorexia HEENT: denies headache, sinus congestion, or drainage, dysphagia RESPIRATORY: cough, sputum production, shortness of breath, CARDIAC: denies chest pain, palpitations, orthopnea, PND GASTROINTESTINAL: denies abdominal pain, nausea, vomiting, melena, GENITOURINARY: denies dysuria, urgency, frequency, heamaturia EXTREMITY: denies swelling MUSCULOSKELETAL: denies current joint pain or tenderness NEUROLOGIC: denies focal numbness, weakness, tingling HEMATOLOGIC: denies easy bruising and/or hemorrhage INTEGUMENT: denies rashes PSYCHIATRIC: denies suicidal or homicidal ideation Vital Signs Vital Signs Vital Signs: 10/12/24 07:28 10/12/24 07:34 10/12/24 07:59 Temperature 98.1 F 98.1 F Temperature Source Axillary Axillary Pulse Rate 103 H 103 H Respiratory Rate 18 18 Respiratory Effort Respiratory Depth Respiratory Pattern Blood Pressure 148/76 H 148/76 H Blood Pressure Mean 100 100 Pulse Ox 98 98 Oxygen Delivery Method Non-Rebreather Non-Rebreather Non-Rebreather Oxygen Flow Rate (L/min) 15 15 15 10/12/24 07:59 10/12/24 08:27 Temperature Temperature Source Pulse Rate 101 H Respiratory Rate 13 Respiratory Effort Normal Non-Labored Respiratory Depth Normal Respiratory Pattern Normal Blood Pressure 154/75 H Blood Pressure Mean 101 Pulse Ox 100 Oxygen Delivery Method High Flow Oxygen Flow Rate (L/min) 10 Weight Weight: 153.2 kg Body Mass Index (BMI) 47.1 Physical Exam Narrative GENERAL: cooperative HEENT: Atraumatic; normocephalic EYES; Anicteric, Normal Conjunctiva NECK; supple, normal thyroid, RESPIRATORY: Diminished to auscultation CARDIOVASCULAR: Regular S1 S2, GI: soft, normoactive bowel sounds, : No Renal angle tenderness; EXTREMITIES: No edema, no clubbing, MUSCULOSKELETAL: no muscle wasting NEURO: Awake; paraplegic SKIN: Sacral decubitus present on admission PSYCH; Flat affect Results Lab / Micro Data 10/12/24 07:56 10/12/24 07:56 Labs: Laboratory Results - last 24 hr 10/12/24 07:56: WBC 8.4, RBC 4.24 L, Hgb 9.7 L, Hct 34.8 L, MCV 82.1, MCH 22.9 L, MCHC 27.9 L, RDW Std Deviation 52.8 H, RDW Coeff of Mary 17.6 H, Plt Count 287,MPV 9.5, Immature Gran % (Auto) 1.300 H, Neut % (Auto) 66.3, Lymph % (Auto) 17.5L, Hayes % (Auto) 11.2 H, Eos % (Auto) 3.2, Baso % (Auto) 0.5, Absolute Neuts (auto) 5.6, Absolute Lymphs (auto) 1.47, Nucleated RBC % 0, Sodium 133, Potassium 4.8, Chloride 93 L, Carbon Dioxide 31.3, Anion Gap 9, BUN 20 H, Creatinine 0.59 L, Estim Creat Clear Calc 208.01, Est GFR (MDRD) Non-Af 113, BUN/Creatinine Ratio 34.0 H, Glucose 175 H, Lactic Acid < 1.0, Calcium 8.7, Troponin T High Sens 107 H*, NT pro BNP II 158 Rhythm Strip Rhythm Strip: Sinus Tach Rate: 103 Ectopy: None Imaging Radiology Impression Chest X-Ray 10/12/24 08:00 IMPRESSION: Mild degree of vascular congestion with bibasilar atelectasis and small bilateral effusions slightly more prominent on the right side. [facility] Assessment & Plan Assessment/Plan (1) Hypoxia: (2) Pneumonia: PLAN: Plan Patient is a 59-year-old gentleman [facility] brought inwith progressive shortness of breath 1. Acute hypoxic respiratory insufficiency ? Secondary to pneumonia admitted to monitored bed for subsequent management. Patient placed on supplemental oxygen titrated to keep saturation greater than 90 2. Pneumonia with suspected MDR's given the fact the patient is resident [facility] and had failed outpatient. Patient was started on Zosyn as well as azithromycin. Ordered sputum cultures, viral respiratory panel, COVID assay. Also ordered CTA which did show Left lower lobe consolidation as well as patchy infiltrates in both upper lobes and left lower lobe. 3. Acute on chronic congestive heart failure ? Complicating care patient is on p.o. furosemide held started on IV furosemide echo ordered as part of his management. Patient was also placed on strict inputand output, low-sodium diet, daily weights 4. History of bilateral pulmonary embolism ? CTA obtained on admission was negative for PE patient is on apixaban discontinued 5. Elevated troponin ? Secondary to demand ischemia from above echo has been ordered to assess for regional wall motion abnormalities. If any abnormalities found on patient echo consultation will be placed to cardiology 6. Diabetes mellitus type 2 ? Patient is on long-acting insulin in addition to scheduled short acting insulin did continue with home regiment. Also placed on 1800 ADA diet in addition to Accu- Cheks ACHS with sliding scale coverage 7. Anemia ? Secondary to chronic disorder monitoring H&H and transfuse if patient becomes symptomatic or hemoglobin falls below 7 8. Unstageable sacral decubitus ? Present on admission consult has been placed to wound care nurse 9. Paraplegia ? Secondary to accidental fall ? Will continue supportive care 10. Class III obesity with BMI of 51.2 ? Complicating care 11. Obstructive sleep apnea ? BiPAP therapy at night 12. Essential tension ? Patient blood pressure remained stable 13. DVT prophylaxis ? Patient already on apixaban Advance planning; did discuss with the patient regarding advanced directives as well as CODE STATUS. Did explain the various scenarios involved ( FULL CODE,DNR CCA, DNR CCA with no intubation, and DNR CC and what each meant) patient elected to remain full code with CPR and intubation if needed. Order was placed. Time spent on discussion 16 minutes. Charges/Coding Multi Select Codes Visit Charges Visit Charges: 22040 Init Hosp L3 Hospitalists' Procedures Procedures: 83632 Advncd Care Plan 30 Min 10/12/24 1347 <Electronically signed by Palmira Johnson MD> Cosigner Signature (if applicable): CC: Dr. Palmira Johnson MD; Dr. Rocio Bartlett MD~ Signed [facility] Work Phone: 1(328) 596-619205-30-2025 Radiology Diagnostic study [facility]05-30-2025 Discharge summary Author Srinivasa Salvador [facility] Note Date/Time October 12, 2024 8:48a m [facility] Medical Records Department [address] [place] [address] Emergency Department Summary 10/12/24 MR#: [id number] Acct: [id number] Name: MELISSA ELIAS Rep #:[id number] : 1965 59 From: Srinivasa Salvador MD PCP: Dr. Rocio Bartlett MD Status:R EG ER Location: ED HPI History of Present Illness Chief Complaint: Shortness of Breath Informant: patient and EMS Narrative Narrative: 59-year-old male brought in by EMS just after 7 AM for hypoxemia. He has been treated at [facility] for pneumonia for about the past 2 or 3 weeks according to the patient, he states he is about done with antibiotics, accordingto his medication list he currently is on azithromycin and Augmentin. No history of chronic lung disease or chronic heart disease except for pulmonary emboli for which he is currently on a apixaban. EMS states that he was 60% on room air at the alf and that about 4 hours ago so they put him on high flow but he was still apparently hypoxic. After seeing the patient, our nurse spoke with the alf nurse, who states he was never on room air; he is on3 L of oxygen even before he had pneumonia, and was on this last night when his oxygen saturations went down to the 80% range so the night nurse turned him up to 5 L but was unable to get his oxygen saturations beyond the 70-80% range. Was in the 60-70% range at 1 point in time. She offered to have the patient go to the ER but he refused because he has a wound care appointment this morning and did not want to miss it, but the morning 7 AM nurse came in and put him on anonrebreather and told the patient since he is a full code and very hypoxic/dyspneic, he would need to be sent to the ER and wound care would not likely be able to care for him anyway. He states he really has not felt that much more dyspneic this morning than he had, maybe a little more, and some mild chest tightness. He has been coughing and has had rhonchorous breathing for maybe the last week. Apparently the patient is in [facility] because he had a spinal surgery thatended up having infection of hardware and osteomyelitis, this led to other surgeries, paraplegia, postoperative complications including pneumonia, pulmonary emboli, sacral decubitus ulcer along with osteomyelitis of the sacrum. This was all within the past 8 years with the majority of the complications in the past 2 years. [facility] Medical History VRE (vancomycin resistant enterococcus) culture positive Decubitus ulcer of sacral region, stage 4 Lymphedema BATOOL treated with BiPAP Abscess of back Constipation Pressure ulcer of sacral region Chronic indwelling Bartlett catheter Blood loss anemia Clot retention of urine Pressure injury, unstageable, with eschar Bilateral pulmonary embolism Rhabdomyolysis Community acquired pneumonia Hypoglycemia Acute osteomyelitis of spine Former tobacco use Paraplegia Cellulitis of leg without foot, right Anemia BMI greater than 40 Type 2 diabetes mellitus HTN (hypertension) H/o back surgery Home Medications ?Medication ?Instructions ?Recorded ?Last Taken ?Type fluticasone propionate 50 1 spray intranasal DAILY haim rtness 03/03/20 Unknown History mcg/actuation nasal of breath spray,suspension (Flonase Allergy Relief) apixaban 5 mg tablet (Eliquis) 5 mg PO BID 07/29/23 History methocarbamol 500 mg tablet 1,000 mg PO TID PRN cramps 07/29/23 08/31/23 History polyethylene glycol 3350 17 17 g PO DAILY PRN constipa tion 07/29/23 07/29/23 History gram/dose oral powder (ClearLax) pantoprazole 40 mg tablet,delayed 40 mg PO DAILY 08/3008/31/23 History release aluminum-mag hydroxide-simethicone 30 ml PO Q6H PRN AK N Gastric 09/13/23 Unknown Rx 400 mg-400 mg-40 mg/5 mL oral susp Burning #0 mL (Mag-Al Plus Extra Strength) amlodipine 10 mg tablet 10 mg PO DAILY #0 tabs 09/12 Unknown Rx carvedilol 12.5 mg tablet 12.5 mg PO BIDCM #0 tabs Unknown Rx diphenhydramine HCl 25 mg capsule 25 mg PO TID PRN PRN Itching #0 09/13/23 Unknown Rx (Banophen) caps peg 494-[id number]-byciqoeg 1 1 drp EACH EYE BID #0 mL 09/13/23 Unknown Rx %-0.2 %-0.2 % eye drops (Artificial Tears ([id number])) polysaccharide iron complex 150 mg 150 mg PO DAILY 06/08 Unknown History iron capsule (Ferrex) sennosides 8.6 mg-docusate sodium 2 tab PO BID Constip ation 10/15/23 Unknown History 50 mg tablet (Stool Softener-Stimulant Laxative) insulin lispro 100 unit/mL See Protocol subcut ACHS Unknown History subcutaneous pen (Humalog KwikPen (U-100) Insulin) loratadine 10 mg tablet 10 mg PO DAILY 10/23/23 Unkn own History (Allerclear) albuterol sulfate 2.5 mg/3 mL 2.5 mg inhalation BID Unknown History (0.083 %) solution for nebulization acetaminophen 500 mg tablet 1,000 mg PO TID PRN pain 0 02/09/24 Unknown History furosemide 20 mg tablet 20 mg PO DAILY 02/09/24 Unkn own History arginine 7 gram-glutamine 7 1 ea PO BID 03/22/24 Unkno wn History gram-calcium HMB 1.5 gram oral powder pack (Wiliam) amino acids-protein hydrolysate 15 30 ml PO BID Unknown History gram-100 kcal/30 mL oral liquid (Pro-Stat Sugar Free) ascorbic acid (vitamin C) 500 mg 500 mg PO QDAY Unknown History tablet chlorhexidine gluconate 4 % 1 applic topical .twice a week 03/26/24 Unknown History topical liquid (Hibiclens) dextrose 40 % oral gel (Glucose 10 g PO Q15M 03/26/24 Unknown History Gel) naloxone 0.4 mg/mL injection 0.4 mg IM Q5M PRN opioid reversal 03/26/24 Unknown History syringe ondansetron 4 mg disintegrating 4 mg PO Q4H PRN nausea 03/26/24 Unknown History tablet sodium chloride 0.65 % nasal mist 2 spray intranasal Q 2H PRN dry 03/26/24 Unknown History nasal passages dulaglutide 3 mg/0.5 mL 3 mg subcut QWEEK 07/18/24 U nknown History subcutaneous pen injector (Trulicity) duloxetine 30 mg capsule,delayed 60 mg PO QDAY 5 Unknown History release insulin glargine 100 unit/mL 10 unit subcut DAILY diab etes 07/18/24 Unknown History subcutaneous solution (Lantus mellitus type 2 U-100 Insulin) insulin lispro 100 unit/mL 6 unit subcut TID 07/18/24 Unknown History subcutaneous solution metformin 500 mg tablet 1,000 mg PO QDAY 07/18/24 Un known History fenofibrate 54 mg tablet 54 mg PO DAILY 08/17/24 Unkn own History lorazepam 1 mg tablet 1 mg PO DAILY PRN anxiety Unknown History nystatin 100,000 unit/gram topical topical 08/17/24 Un known History powder cefdinir 300 mg capsule 300 mg PO BID #20 caps 09/07 Unknown Rx metronidazole 500 mg tablet 500 mg PO BID #20 tabs Unknown Rx oxycodone 10 mg tablet 10 mg PO .QID pain 30 days # 120 10/09/24 Unknown Rx tabs morphine 30 mg capsule,extended 30 mg PO Q12H 30 days #60 caps 10/10/24 Unknown Rx release pellets ([place]) Allergy/AdvReac Type Severity Reaction Status Date / Time No Known Allergies Allergy Verified 10/12/24 07:34 Family History Mother Hypertension Hypotension Diabetes Arthritis Father Hypertension Hypotension Heart disease Status post double vessel coronary artery bypass angina Arthritis Grandfather Prostate cancer Grandmother Uterine cancer Surgical History History of hip replacement Colostomy status Hx of spinal surgery H/O sinus surgery Social History housing: alf current occupational status: employed and retired Smoking Status: Former smoker alcohol intake: never substance use type: does not use do you feel safe at home: Yes ROS ROS ED Constitutional Constitutional ED: Reports weakness; Denies chills or fever(s) Eyes Eyes: Denies change in vision or diplopia ENT ENT ED: Denies rhinorrhea or sore throat Cardiovascular Cardiovascular: Reports chest pain, fatigue and other Details: Chronic bilaterallower extremity edema unchanged ; Denies palpitations, radiating jaw, neck or arm pain or syncope Respiratory/Chest Respiratory/Chest: Reports chest tightness, cough and dyspnea Gastrointestinal Gastrointestinal: Denies abdominal pain, diarrhea, nausea or vomiting Genitourinary Genitourinary ED: Denies dysuria or hematuria Musculoskeletal Musculoskeletal: Denies myalgias or neck pain Integumentary Denies abscess or rash Neurologic Neurologic: Reports paresthesias and weakness; Denies headache(s) Psychiatric Psychiatric: Denies anxiety or suicidal thoughts EXAM Physical Exam Const Vital Signs: 10/12/24 07:28 10/12/24 07:34 10/12/24 07:59 Temperature 98.1 F 98.1 F Temperature Source Axillary Axillary Pulse Rate 103 H 103 H Respiratory Rate 18 18 Respiratory Effort Respiratory Depth Respiratory Pattern Blood Pressure 148/76 H 148/76 H Blood Pressure Mean 100 100 Pulse Ox 98 98 Oxygen Delivery Method Non-Rebreather Non-Rebreather Non-Rebreather Oxygen Flow Rate (L/min) 15 15 15 10/12/24 07:59 Temperature Temperature Source Pulse Rate Respiratory Rate Respiratory Effort Normal Non-Labored Respiratory Depth Normal Respiratory Pattern Normal Blood Pressure Blood Pressure Mean Pulse Ox Oxygen Delivery Method Oxygen Flow Rate (L/min) Positive well nourished, well developed and obese General Appearance ED: well developed and NAD Nutritional Appearance: obese HEENT Reports moist mucous membranes normocephalic and atraumatic Eyes PERRL and EOMs intact bilaterally Neck full ROM, supple and no JVD Resp normal respiratory effort Resp Narrative: Rhonchorous breath sounds throughout, clearly audible externally without stethoscope suggesting upper airway etiology. Cardio regular rate, regular rhythm and no murmurs Cardio Narrative: Mildly tachycardic low 100s GI non-tender and non-distended GI Narrative: Colostomy left lower quadrant, there is some herniation of the mucosa but it is otherwise benign and outputting nonbloody stool Auscultation: normoactive bowel sounds Palpation: soft Back/Spine no CVA tenderness General Back: other FROM Extremity normal to inspection General Extremety ED: Yes edema; Negative for pulses abnormal or tenderness General Extremity: edema bilateral lower extremity Details: moderate (With changes of chronic stasis dermatitis both lower legs, no tenderness.); Negative for pulses abnormal Neuro oriented x3 and CN's II-XII intact bilaterally Sensorium / Orientation: awake and alert Psych mental status grossly normal Skin no rashes or lesions noted and no wounds MDM MDM MDM Narrative Medical decision making narrative: Although patient sounds rhonchorous/wet, he is breathing well did not require breathing treatment. Will be chest x-ray my interpretation is ambiguous; appears to have some fluid in both bases, and possibly the fissure indicating pleural effusion on the right, so this looks like congestion/CHF but his proBNP is only 158 which is extremely low arguing against acute decompensated congestive heart failure, and this is more likely to be either third spacing, infection, or both. His white blood count is only 8.4. Etiology is unknown butit is increasing his oxygen requirement. Respiratory was able to wean him down to high flow at 10 L he is currently 95- 98%, he denies having any chest discomfort right now. His initial troponin is nonspecifically elevated at 107, his EKG shows a stable right bundle branch block without signs of acute ischemia/injury, will admit for further testing and treatment. He is on a apixaban already so I did not think he needed emergent PE testing. His anemia is chronic and stable. He does have third spacing in his body from being immobile, this could be related. Also in the differential is failure of outpatient therapy of his pneumonia, also possibly primary cardiac such as acutecoronary syndrome although he is having no chest discomfort right now. History & Record Review Additional record(s) reviewed:: Prior outpatient record (Wound care visit 2 weeks ago) Lab Data Attestation: I reviewed the patient's lab results. Labs: Laboratory Results - last 24 hr 10/12/24 07:56 WBC 8.4 RBC 4.24 L Hgb 9.7 L Hct 34.8 L MCV 82.1 MCH 22.9 L MCHC 27.9 L RDW Std Deviation 52.8 H RDW Coeff of Mary 17.6 H Plt Count 287 MPV 9.5 Immature Gran % (Auto) 1.300 H Neut % (Auto) 66.3 Lymph % (Auto) 17.5 L Hayes % (Auto) 11.2 H Eos % (Auto) 3.2 Baso % (Auto) 0.5 Absolute Neuts (auto) 5.6 Absolute Lymphs (auto) 1.47 Nucleated RBC % 0 Sodium 133 Potassium 4.8 Chloride 93 L Carbon Dioxide 31.3 Anion Gap 9 BUN 20 H Creatinine 0.59 L Estim Creat Clear Calc 208.01 Est GFR (MDRD) Non-Af 113 BUN/Creatinine Ratio 34.0 H Glucose 175 H Lactic Acid < 1.0 Calcium 8.7 Troponin T High Sens 107 H* NT pro BNP II 158 Radiography Diagnostic Testing: Clinical Impression(s) from Imaging Studies Chest X-Ray 10/12/24 08:00 IMPRESSION: Mild degree of vascular congestion with bibasilar atelectasis and small bilateral effusions slightly more prominent on the right side. Reading Location: [place] [address] Rhythm Strip Rhythm Strip: Sinus Tach Rate: 103 Ectopy: None EKG Initial EKG: Attestation: I personally reviewed and interpreted this EKG as follows: Interpretation: No Acute Injury Pattern, Sinus Tachycardia and RBBB Prior EKG tracings: available for review Prior: Unchanged (2023) Management Discussion w/another healthcare provider: Hospitalist Discharge Plan Dx/Rx/DC Orders Clinical Impression: Acute hypoxic respiratory failure, Elevated troponin, Chest pain Disposition Disposition: [facility] What to do if you have Problems For any increased pain, shortness of breath, bleeding, nausea or vomiting, chestpain, or any unexpected problems, contact your Primary Care Provider. Call [facility] ([phone]) or report to the closest Emergency Room. Call 911 if necessary. 10/12/24 0848 <Electronically signed by Srinivasa Salvador MD> Cosigner Signature (if applicable): CC: Dr. Rocio Bartlett MD ~ Signed [facility] Work Phone: [phone]) 535-983505-30-2025 Radiology Diagnostic study [facility]05-16-2025 Progress note Author Peter Thayer [facility] Note Date/Time September 28, 2024 1:58p m [facility] [address] [place] [address] Progress Note - Wound Care 09/28/24 1349 MR#: [id number] Acct: [id number] Name: MELISSA ELIAS Rep #:[id number] : 1965 59 From: Peter Thayer DO PCP: Dr. Rocio Bartlett MD Status:R EG RCR Location: History of Present Illness Date of Service: 09/28/24 Chief Complaint: sacral decubitus ulcer History of Wound: Melissa is a pleasant 59 yo gentleman that has undergone an unfortunate series of events over the last several years which has left him paraplegic and with a sacral decubitus ulcer and residing in [facility]. He has been referred to the wound center for evaluation and treatment of his sacral ulcer. He has had a long history of degenerative disc disease of his spine and underwent spine surgery in August 2016 initially and then again in February 2017 due to osteomyelitis and infection of hardware. He underwent further surgery forfusion in December of 2020. He fell in November of 2022 getting up from his chair and then experienced worsening pain, weakness in his legs and ultimately became paraplegic from the waist down. He underwent surgery in [place] in January 2023 at [facility] and then had several complications including pneumonia, pulmonary embolisms and a sacral ulcer that developed into a large defect after multiple surgical debridements and osteomyelitis of his sacrum while at [facility] through the first part of 2023 and then attempted to come home to be cared for by his elderly mother which was not successful and he was hospitalized and discharged to [facility] where he has been residing and continues to reside. He has undergone many different treatments for his sacral ulcer including wound vac, silver dressings and Dakins and does have an air mattress but it is not an alternating pressure air mattress. The staff does try to offload his ulcer with wedges and pillows but it is difficult due to his chronic back pain. He is currently having the wound dressed with Dakins wet to dry and super absorber dressings twice daily. he reports being on chronic antibiotic treatment and IV treatment over the past year and states that he had MRI that showed resolution of osteomyelitis. (Records unavailable). He currently does not have any symptoms of systemic infection or localized infection. Denies fever, chills, nausea. Subjective Subjective Melissa returns today for evaluation and treatment of a sacral decubitus ulcer. Hehas been tolerating dressing changes with Dakins and super absorber dressings. His wound culture came back with multiple bacteria anaerobic and aerobic including VRE. He completed antibiotic treatment. Denies fever, chills, erythema. Objective Data Objective Data Vital Signs: Vital Signs Temp Pulse Resp BP Pulse Ox O2 Del Method O2 Flow Rate 97.4 F L 105 H 18 136/70 H 96 Nasal Cannula 2 09/28/24 09:20 09/28/24 09:20 09/28/24 09:20 09/28/24 09:20 09/13/24 00:26 09/28/24 09:20 09/28/24 09:20 Oxygen Flow Rate (L/min) 2 Oxygen Delivery Method Nasal Cannula Weight: 141.067 kg Body Mass Index (BMI) 43.3 Physical Exam Const alert, oriented x3, no apparent distress and well nourished Constitutional Narrative: Morbidly obese, middle-aged, white male, sitting up in bed, appears comfortable and nontoxic General Appearance: cooperative and comfortable Nutritional Appearance: morbidly obese HEENT head/scalp atraumatic and moist oral mucous membranes Resp normal respiratory effort, no retractions, no use of accessory muscles and clearto auscultation bilaterally Resp Narrative: Distant due to body habitus Cardio regular rate, regular rhythm, S1 normal heart sound, S2 normal heart sound, no murmurs, no rub, no gallops and no clicks GI normal to inspection, nondistended, normoactive bowel sounds, soft to palpation and non-tender GI Narrative: colostomy present Extremity Extremity Narrative: Chronic bilateral lower extremity edema due to history of paraplegia and lack ofmovement, no cyanosis or clubbing General Extremity: edema bilateral lower extremity Details: moderate Skin Wounds: wounds noted Wound Narrative: as noted in clinical panel - large sacral ulcer and right ischial ulcer, no visible bone, shearing injury of left ischial area, area is irregular with fringe like skin in areas from repetitive shearing and pressure Neuro oriented x3, CN's II-XII intact bilaterally, No moves all extremities, No no focal motor deficits and No no sensory deficits noted Neuro Narrative: Bilateral lower extremity flaccidity due to history of L1 injury Speech: speech normal Psych affect normal Psych Narrative: Very pleasant, interacts appropriately Debridement Note Debridement Note Wound debrided: left ischium Laterality: Left Wound Grade/Stage: Stage 2 Anesthesia Used: 4% Lidocaine Solution Depth: Down to and including healthy tissue and in the subcutaneous layer Percentage of wound debrided: 100 Instrument Used: 5mm curette Tissue Removed: Yellow slough, devitalized tissue Severity: Fat Layer Exposed Amount of bleeding with debridement: None Bleeding Controlled with: Compression and gauze Patient tolerated procedure: Patient tolerated procedure well Post-Debridement Measurements and Additional Note: Post-Debridement Measurements/Treatment - Nurse 1 - General Ulcer Assessment Start: 09/14/24 08:52 Freq: Status: Active Protocol: .MAURICIO Activity Type Activity Date Activity User E-sign Co-sign Detail Recorded Client Recorded Date Recorded By Document 09/14/24 08:52 KW [id number] 09/14/24 09:10 KW Document 09/21/24 09:17 RB [id number] 09/21/24 09:22 RB Document 09/28/24 09:20 KW [id number] 09/28/24 09:24 KW 09/14/24 09/21/24 09/28/24 08:52 09:17 09:20 - Today's Visit Information Type of service Follow-up Visit Follow-up Visit Follow-up Visit (Physician/WATER REUSE PROGRAM MANAGER (Physician/WATER REUSE PROGRAM MANAGER (Physician/WATER REUSE PROGRAM MANAGER ) ) ) Arrival Mode Wheelchair Wheelchair Transfer Assistance Kelli Lift Kelli Lift Patient Identification Verified (Name & Yes Yes ) Patient Requires Transmission-Based No Precautions Height and Weight Body Mass Index (BMI) 43.3 43.3 43.3 BMI Classification Obese Obese Obese Vital Signs Temperature (97.8 F-99.1 F) 97.8 F 97.4 F L 97.4 F L Temperature Source Temporal Temporal Temporal Pulse Rate (60-100) 103 H 105 H 105 H Pulse Location Monitor Monitor Monitor Respiratory Rate (12-18) 18 18 18 Respiratory rate source Observation Observation Observation Oxygen Delivery Method Room Air Nasal Cannula O2 L/MIN (L/min) 2 Blood Pressure (90/60-120/80) 146/73 H 135/75 H 136/70 H Blood Pressure Mean (mm Hg) 97 95 92 Source Monitor Monitor Monitor Position Sitting Semi-Fowlers Semi-Fowlers Blood Pressure Location Left Forearm Left Arm Left Arm History Since Last Visit- (Skip if this is Patient's initial visit) Have you changed medications since your No No No last visit? Any new allergies or adverse reactions No No No Had a fall/change in ADL's that may No No No increase risk of falls Signs or symptoms of abuse and/or No No No neglect since last visit Have you been in the hospital since your No No No last visit? Has dressing in place as prescribed Yes Yes Yes Has compression in place as prescribed Yes N/A N/A Has offloadiing in place as prescribed N/A Yes N/A Experienced any changes in pain level or No No No management Left Footwear No Footwear No Footwear Right Footwear No Footwear No Footwear Pain Scale: 0-10 Numeric Is Patient Pain Free? Yes Yes Yes WC - Nurse 1 - General Ulcer Measurement Start: 09/14/24 08:52 Freq: Status: Active Protocol: Activity Type Activity Date Activity User E-sign Co-sign Detail Recorded Client Recorded Date Recorded By Document 09/14/24 08:52 KW [id number] 09/14/24 09:10 KW Document 09/21/24 09:17 RB [id number] 09/21/24 09:22 RB Document 09/28/24 09:20 KW [id number] 09/28/24 09:24 KW 09/14/24 09/21/24 09/28/24 08:52 09:17 09:20 Wound Center Nurse 1 scrotum -Combined with other wound No No -Current Size (cm) - Length 1 2 1 -Current Size (cm) - Width 0.5 0.5 1 -Current Size (cm) - Depth 0.1 0.1 0.2 -Total Square Cm 0.5 1.0 1 -Photo Taken Yes Yes -Tunneling No No -Undermining/Tunneling No No -Circular Undermining No No -Exudate Amt Large Medium -Exudate Type Serosanguineous Serosanguineous -Wound Margin Thickened Thickened Thickened -Granulation Amt Medium (34-66%) Medium (34-66%) Large (67-100%) -Granulation Quality Solvang Solvang Red -Slough/Fibrin Yes Yes -Necrosis Amt Medium (34-66%) Medium (34-66%) -Necrotic Tissue Type Adherent Slough Adherent Slough -Structure Exposed N/A N/A -Texture (Trish-wound Skin Appearance) Assessed, Excoriation Assessed Excoriation -Moisture (Trish-wound Skin Appearance) Assessed Assessed Assessed -Color (Trish-wound Skin Appearance) Assessed Assessed Assessed -Temperature (Trish-wound Skin No Abnormality No Abnormality No Abnormality Appearance) (Pt Warm) (Pt Warm) (Pt Warm) -Tenderness on Palpation (Trish-wound No No No Skin Appearance) -Ulcer Cleansing Wound Cleanser Wound Cleanser Soap and Water -Foul Odor after Cleansing No No No -Anesthetic Used 4% Lidocaine 4% Lidocaine 4% Lidocaine Solution Solution Solution 3. R ischium -Combined with other wound No No -Current Size (cm) - Length 8.5 8.5 8 -Current Size (cm) - Width 5 4.5 4.2 -Current Size (cm) - Depth 0.1 0.2 0.1 -Total Square Cm 42.5 38.25 33.6 -Photo Taken Yes Yes -Tunneling No No -Undermining/Tunneling No No -Circular Undermining No No -Exudate Amt Large Medium Small -Exudate Type Serosanguineous Serosanguineous Serosanguineous -Wound Margin Distinct, Thickened Distinct, Outline Outline Attached Attached -Granulation Amt Medium (34-66%) Medium (34-66%) Large (67-100%) -Granulation Quality Solvang Solvang Red -Slough/Fibrin Yes Yes -Necrosis Amt Small (1-33%) Small (1-33%) -Necrotic Tissue Type Adherent Slough Adherent Slough -Structure Exposed N/A N/A -Texture (Trish-wound Skin Appearance) Assessed, Assessed, Assessed Excoriation Excoriation -Moisture (Trish-wound Skin Appearance) Assessed Assessed Assessed -Color (Trish-wound Skin Appearance) Assessed Assessed Assessed -Temperature (Trish-wound Skin No Abnormality No Abnormality No Abnormality Appearance) (Pt Warm) (Pt Warm) (Pt Warm) -Tenderness on Palpation (Trish-wound No No No Skin Appearance) -Ulcer Cleansing Rinsed/ Wound Cleanser Soap and Water Irrigated with Saline -Foul Odor after Cleansing No No No -Anesthetic Used 4% Lidocaine 4% Lidocaine 4% Lidocaine Solution Solution Solution 2. L ischium -Combined with other wound No No -Current Size (cm) - Length 2 2.5 0.6 -Current Size (cm) - Width 3.5 1.5 1.1 -Current Size (cm) - Depth 0.1 0.1 0.1 -Total Square Cm 7.0 3.75 0.66 -Photo Taken Yes Yes -Tunneling No No -Undermining/Tunneling No No -Circular Undermining No No -Exudate Amt Large Medium Large -Exudate Type Serosanguineous Serosanguineous Serosanguineous -Wound Margin Distinct, Thickened Thickened & Outline Rolled Under Attached -Granulation Amt Medium (34-66%) Medium (34-66%) Large (67-100%) -Granulation Quality Solvang Solvang Red -Slough/Fibrin Yes Yes -Necrosis Amt Small (1-33%) Small (1-33%) -Necrotic Tissue Type Adherent Slough Adherent Slough -Structure Exposed N/A N/A -Texture (Trish-wound Skin Appearance) Assessed, Assessed, Assessed Excoriation Excoriation -Moisture (Trish-wound Skin Appearance) Assessed Assessed Assessed -Color (Trish-wound Skin Appearance) Assessed Assessed Assessed -Temperature (Trish-wound Skin No Abnormality No Abnormality No Abnormality Appearance) (Pt Warm) (Pt Warm) (Pt Warm) -Tenderness on Palpation (Trish-wound No No No Skin Appearance) -Ulcer Cleansing Rinsed/ Wound Cleanser Soap and Water Irrigated with Saline -Foul Odor after Cleansing No No No -Anesthetic Used 4% Lidocaine 4% Lidocaine 4% Lidocaine Solution Solution Solution *1. coccyx -Combined with other wound No No -Current Size (cm) - Length 17 11 7 -Current Size (cm) - Width 15 15.5 15 -Current Size (cm) - Depth 0.2 0.1 0.3 -Total Square Cm 255 170.5 105 -Photo Taken Yes Yes -Tunneling No No -Undermining/Tunneling No No -Circular Undermining No No -Exudate Amt Large Large Large -Exudate Type Serosanguineous Serosanguineous Serosanguineous -Wound Margin Distinct, Thickened Distinct, Outline Outline Attached Attached -Granulation Amt Medium (34-66%) Medium (34-66%) Large (67-100%) -Granulation Quality Solvang Solvang Solvang,Red -Slough/Fibrin Yes Yes -Necrosis Amt Medium (34-66%) Small (1-33%) -Necrotic Tissue Type Adherent Slough Adherent Slough -Structure Exposed N/A N/A -Texture (Trish-wound Skin Appearance) Assessed, Assessed, Assessed Excoriation Excoriation -Moisture (Trish-wound Skin Appearance) Assessed Assessed Assessed -Color (Trish-wound Skin Appearance) Assessed Assessed Assessed -Temperature (Trish-wound Skin No Abnormality No Abnormality No Abnormality Appearance) (Pt Warm) (Pt Warm) (Pt Warm) -Tenderness on Palpation (Trish-wound No No No Skin Appearance) -Ulcer Cleansing Rinsed/ Wound Cleanser Soap and Water Irrigated with Saline -Foul Odor after Cleansing No No No -Anesthetic Used 4% Lidocaine 4% Lidocaine 4% Lidocaine Solution Solution Solution WC - Nurse 2 - General Ulcer CM Notes Start: 09/14/24 08:52 Freq: Status: Active Protocol: Activity Type Activity Date Activity User E-sign Co-sign Detail Recorded Client Recorded Date Recorded By Document 09/14/24 09:17 [id number] 09/14/24 09:48 Document 09/21/24 09:30 [id number] 09/21/24 09:52 Document 09/28/24 09:31 [id number] 09/28/24 09:46 09/14/24 09/21/24 09/28/24 09:17 09:30 09:31 Wound Center Nurse 2 scrotum -Time 09:35 09:42 -Correct Patient Yes Yes -Correct Side, Site, Position Yes Yes -Correct Procedure No No -Procedure Performed No No -Post Debridement (cm) - Length 3.0 -Post Debridement (cm) - Width 1.0 -Post Debridement (cm) - Depth 0.1 -Total Square (Post) (cm) 3.00 -Tunneling No No -Undermining/Tunneling No No -Circular Undermining No No -Wound/Ulcer Outcome Not Healed Healed- Epithelialized -Ulcer Cleansing Rinsed/ Not Cleansed Irrigated with Saline -Foul Odor after Cleansing No No -Bioengineered Tissue No No -Bleeding Controlled with NA NA -Assistive Device(s) Wheelchair -Pressure Reduction Wheelchair cushion 3. R ischium -Time 09:20 09:32 09:32 -Correct Patient Yes Yes Yes -Correct Side, Site, Position Yes Yes Yes -Correct Procedure Yes Yes Yes -Procedure Performed Yes Yes Yes -Type of Procedure Debridement Debridement Debridement -Clinical Debridement Muscle / Fascia Muscle / Fascia Muscle / Fascia -Tissue Removed Muscle Muscle Muscle -Post Debridement (cm) - Length 8.4 9.0 8.5 -Post Debridement (cm) - Width 4.8 4.9 5.0 -Post Debridement (cm) - Depth 0.1 0.1 0.1 -Total Square (Post) (cm) 40.32 44.10 42.50 -Area of Debridement (cm) - Length 8.4 9.0 8.5 -Area of Debridement (cm) - Width 4.8 4.9 5.0 -Total Square (Area) (cm) 40.32 44.10 42.50 -Tunneling No No No -Undermining/Tunneling No No No -Circular Undermining No No No -Wound/Ulcer Outcome Not Healed Not Healed Not Healed -Ulcer Cleansing Rinsed/ Rinsed/ Rinsed/ Irrigated with Irrigated with Irrigated with Saline Saline Saline -Foul Odor after Cleansing No No No -Bioengineered Tissue No No No -Bleeding Controlled with Pressure,Silver Pressure Pressure Nitrate ($) -Treatment Response Procedure Procedure Procedure Tolerated Well Tolerated Well Tolerated Well -Offloading No No No -Assistive Device(s) Wheelchair -Pressure Reduction Wheelchair cushion -Debridement - Muscle / Fascia, 1st No No No 20sq cm 2. L ischium -Time 09:20 09:34 09:33 -Correct Patient Yes Yes Yes -Correct Side, Site, Position Yes Yes Yes -Correct Procedure Yes Yes Yes -Procedure Performed Yes Yes Yes -Type of Procedure Debridement Debridement Debridement -Clinical Debridement Subcutaneous Subcutaneous Subcutaneous -Tissue Removed Subcutaneous Subcutaneous Subcutaneous -Post Debridement (cm) - Length 2.0 2.5 1.5 -Post Debridement (cm) - Width 2.5 2.5 0.6 -Post Debridement (cm) - Depth 0.1 0.1 0.1 -Total Square (Post) (cm) 5.00 6.25 0.90 -Area of Debridement (cm) - Length 2.0 2.5 1.5 -Area of Debridement (cm) - Width 2.5 2.0 0.6 -Total Square (Area) (cm) 5.00 5.00 0.90 -Tunneling No No No -Undermining/Tunneling No No No -Circular Undermining No No No -Wound/Ulcer Outcome Not Healed Not Healed Not Healed -Ulcer Cleansing Rinsed/ Rinsed/ Rinsed/ Irrigated with Irrigated with Irrigated with Saline Saline Saline -Foul Odor after Cleansing No No No -Bioengineered Tissue No No No -Bleeding Controlled with Pressure Pressure Pressure -Treatment Response Procedure Procedure Procedure Tolerated Well Tolerated Well Tolerated Well -Offloading No No No -Debridement - Subq, 1st 20sq cm Yes Yes Yes *1. coccyx -Time 09:20 09:35 09:33 -Correct Patient Yes Yes Yes -Correct Side, Site, Position Yes Yes Yes -Correct Procedure Yes Yes Yes -Procedure Performed Yes Yes Yes -Type of Procedure Debridement Debridement Debridement -Clinical Debridement Muscle / Fascia Muscle / Fascia Muscle / Fascia -Tissue Removed Muscle Muscle Muscle -Post Debridement (cm) - Length 16.0 15.0 15.0 -Post Debridement (cm) - Width 15.5 16.0 15.5 -Post Debridement (cm) - Depth 0.1 0.1 0.1 -Total Square (Post) (cm) 248.00 240.00 232.50 -Area of Debridement (cm) - Length 16.0 15 15.0 -Area of Debridement (cm) - Width 15.5 16 15.5 -Total Square (Area) (cm) 248.00 240 232.50 -Tunneling No No No -Undermining/Tunneling No No No -Circular Undermining No No No -Wound/Ulcer Outcome Not Healed Not Healed Not Healed -Ulcer Cleansing Rinsed/ Rinsed/ Rinsed/ Irrigated with Irrigated with Irrigated with Saline Saline Saline -Foul Odor after Cleansing No No No -Bioengineered Tissue No No No -Bleeding Controlled with Pressure Pressure Pressure, Surgifoam ? x 2 38 (sm) -Surgifoam (3/4 x 2 38) Small 1 -Treatment Response Procedure Procedure Tolerated Well Tolerated Well -Offloading No No No -Assistive Device(s) Wheelchair Wheelchair -Pressure Reduction Wheelchair Wheelchair cushion cushion -Debridement - Muscle / Fascia, 1st Yes Yes Yes 20sq cm -Debridement, Muscle/Fascia, ea addt'l 14 14 13 20sq cm or part thereof Pain Scale: 0-10 Numeric Is Patient Pain Free? Yes Yes Yes - Nurse 3 - General Ulcer D/C NN Start: 09/14/24 08:52 Freq: Status: Active Protocol: Activity Type Activity Date Activity User E-sign Co-sign Detail Recorded Client Recorded Date Recorded By Document 09/14/24 10:40 RB [id number] 09/14/24 10:42 RB Document 09/21/24 10:19 RB [id number] 09/21/24 10:21 RB Document 09/28/24 10:01 KW [id number] 09/28/24 10:02 KW 09/14/24 09/21/24 09/28/24 10:40 10:19 10:01 Wound Care Center Nurse 3 scrotum -Ulcer Cleansing Rinsed/ Irrigated with Saline -Primary Dressing Applied Aquacel Extra -Other Dressing abd dakins moistened gauze /ABD -Primary Dressing Covered/Secured with Dry Gauze, Dry Gauze, Secured with Secured with Tape Tape -Aquacel Extra 1 3. R ischium -Primary Dressing Applied Optilok 6.5x10 -Other Dressing dakins gauze dakins dakins gauze moistened gauze /ABD -Primary Dressing Covered/Secured with Secured with Dry Gauze, Dry Gauze, Tape Secured with Secured with Tape Tape -Optilok 6.5x10 1 2. L ischium -Other Dressing dakins dakins dakins gauze moistened gauze moistened gauze / ABD -Primary Dressing Covered/Secured with Dry Gauze, Secured with Dry Gauze, Secured with Tape Secured with Tape Tape *1. coccyx -Other Dressing dakins dakins dakins gauze moistened gauze moistened /ABD / superabsorber -Primary Dressing Covered/Secured with Dry Gauze, Secured with Dry Gauze, Secured with Tape Secured with Tape Tape Treatment Response Procedure Procedure Tolerated Well Tolerated Well Pain Scale: 0-10 Numeric Is Patient Pain Free? Yes Yes Yes WC - Visit Discharge Discharge Condition Stable Stable Stable Ambulatory Status Wheelchair Wheelchair Wheelchair Transportation [facility] Medication Reconcilliation completed & No No provided to patient/care provider Clinical Summary of Care Provided Yes Yes Notes: kelli lift assit x 4 Additional Wound Wound debrided: right ischium Laterality: Right Wound Grade/Stage: Stage III Type of Debridement: Excisional debridement Anesthesia Used: 4% Lidocaine Solution Depth: Down to and including healthy tissue and in the subcutaneous layer Percentage of wound debrided: 100 Instrument Used: 5mm curette Tissue Removed: Yellow slough, devitalized tissue Severity: Fat Layer Exposed Amount of bleeding with debridement: Mild Bleeding Controlled with: Compression and gauze Patient tolerated procedure: Patient tolerated procedure well Additional Wound Wound debrided: coccyx Laterality: Not Applicable Wound Grade/Stage: Stage IV Type of Debridement: Excisional debridement Anesthesia Used: 4% Lidocaine Solution Depth: Down to and including healthy tissue, in the subcutaneous layer and to muscle Percentage of wound debrided: 100 Instrument Used: 5mm curette Tissue Removed: Yellow slough, devitalized tissue Severity: Necrosis of Muscle Amount of bleeding with debridement: Moderate Bleeding Controlled with: Compression and gauze and Gel Foam Patient tolerated procedure: Patient tolerated procedure well Assessment/Plan Assessment/Plan (1) Chronic pain: CODE(S): G89.29 - Other chronic pain QUALIFIERS: Chronic pain type: chronic pain syndrome Qualified Code(s): G89.4 - Chronic pain syndrome (2) Hypoxia: CODE(S): R09.02 - Hypoxemia (3) History of paraplegia: CODE(S): Z86.69 - Personal history of other diseases of the nervous systemand sense organs (4) Chronic indwelling Bartlett catheter: CODE(S): Z97.8 - Presence of other specified devices (5) Type 2 diabetes mellitus: CODE(S): E11.9 - Type 2 diabetes mellitus without complications QUALIFIERS: Diabetes mellitus intermediate card tender insulin use: without fpc use Diabetes mellitus complication status: with neurologic complications Diabetes mellitus complication detail: with polyneuropathy Qualified Code(s): E11.42 - Type 2 diabetes mellitus with diabetic polyneuropathy (6) Chronic anticoagulation: CODE(S): Z79.01 - intermediate card tender (current) use of anticoagulants (7) History of deep vein thrombosis: CODE(S): Z86.718 - Personal history of other venous thrombosis and embolism (8) Decubitus ulcer of sacral region, stage 4: CODE(S): L89.154 - Pressure ulcer of sacral region, stage 4 (9) Decubitus ulcer of left perineal ischial region, stage 2: CODE(S): L89.322 - Pressure ulcer of left buttock, stage 2 (10) Hx of spinal surgery: CODE(S): Z98.890 - Other specified postprocedural states (11) Colostomy status: CODE(S): Z93.3 - Colostomy status (12) HTN (hypertension): CODE(S): I10 - Essential (primary) hypertension QUALIFIERS: Hypertension type: primary hypertension Qualified Code(s): I10 - Essential (primary) hypertension (13) BATOOL treated with BiPAP: CODE(S): G47.33 - Obstructive sleep apnea (adult) (pediatric) (14) Lymphedema: CODE(S): I89.0 - Lymphedema, not elsewhere classified (15) Decubitus ulcer of right ischium, stage 3: CODE(S): L89.313 - Pressure ulcer of right buttock, stage 3 PLAN: Plan Debridement performed today in clinic as annotated above. At home wound-care instructions: The patient's ulcers will be washed with antibacterial soap and water and then will use Dakins wet to dry to wound bed and cover with gauze and superabsorber for heavy drainage twice daily. Keep dressing clean and dry. Off-loading: The patient was instructed to avoid pressure and friction on the affected areas. Reposition every 2 hours at minimum. Avoid prolonged standing and/or dangling of legs. When seated, feet should be elevated at chest level. Continue air mattress. Order has been written for alternating pressure air mattress to assist in offloading pressure to his ulcers. He reports that his current mattress may have this capability but needs to be programmed to use thisfeature and the DME provider is supposed to be coming out to see if they can implement this. Diet: Patient encouraged to increase protein intake while taking caution to avoid high carbohydrate and/or sugar intake. He is getting [place] protein supplement at [facility]. Labs/cultures/imaging: Will obtain previous imaging results. Most recent A1C 7.9% on 07/23/24. Wound culture showed multiple bacteria and he was completed on Flagyl and Cefdinir. Follow-up: Return in 1 week for wound care follow up. Return sooner or report tothe emergency room should symptoms worsen, or new symptoms arise. Note: [employer] speech recognition overhead worker software was used to create portions of this document. Sound-alike and misspelled words, as well as other overhead worker errors may be contained in the documentation. 09/28/24 1358 <Electronically signed by Peter Thayer DO> Cosigner Signature (if applicable): CC: ~ Signed [facility] Work Phone: [phone] Progress note Author Peter Thayer [facility] Note Date/Time September 28, 2024 8:15a m [facility] [address] [place] [address] Progress Note - Wound Care 09/21/24 1536 MR#: [id number] Acct: [id number] Name: MELISSA ELIAS Rep #:[id number] : 1965 59 From: Peter Thayer DO PCP: Dr. Rocio Bartlett MD Status:R EG RCR Location: History of Present Illness Date of Service: 09/21/24 Chief Complaint: sacral decubitus ulcer History of Wound: Melissa is a pleasant 59 yo gentleman that has undergone an unfortunate series of events over the last several years which has left him paraplegic and with a sacral decubitus ulcer and residing in [facility]. He has been referred to the wound center for evaluation and treatment of his sacral ulcer. He has had a long history of degenerative disc disease of his spine and underwent spine surgery in August 2016 initially and then again in February 2017 due to osteomyelitis and infection of hardware. He underwent further surgery forfusion in December of 2020. He fell in November of 2022 getting up from his chair and then experienced worsening pain, weakness in his legs and ultimately became paraplegic from the waist down. He underwent surgery in [place] in January 2023 at [facility] and then had several complications including pneumonia, pulmonary embolisms and a sacral ulcer that developed into a large defect after multiple surgical debridements and osteomyelitis of his sacrum while at [facility] through the first part of 2023 and then attempted to come home to be cared for by his elderly mother which was not successful and he was hospitalized and discharged to [facility] where he has been residing and continues to reside. He has undergone many different treatments for his sacral ulcer including wound vac, silver dressings and Dakins and does have an air mattress but it is not an alternating pressure air mattress. The staff does try to offload his ulcer with wedges and pillows but it is difficult due to his chronic back pain. He is currently having the wound dressed with Dakins wet to dry and super absorber dressings twice daily. he reports being on chronic antibiotic treatment and IV treatment over the past year and states that he had MRI that showed resolution of osteomyelitis. (Records unavailable). He currently does not have any symptoms of systemic infection or localized infection. Denies fever, chills, nausea. Subjective Subjective Melissa returns today for evaluation and treatment of a sacral decubitus ulcer. Hehas been tolerating dressing changes with Dakins and super absorber dressings. His wound culture came back with multiple bacteria anaerobic and aerobic including VRE. He completed antibiotic treatment. Denies fever, chills, erythema. Objective Data Objective Data Vital Signs: Vital Signs Temp Pulse Resp BP Pulse Ox O2 Del Method O2 Flow Rate 97.4 F L 105 H 18 135/75 H 96 Room Air 2 09/21/24 09:17 09/21/24 09:17 09/21/24 09:17 09/21/24 09:17 09/13/24 00:26 09/14/24 08:52 09/13/24 00:26 Oxygen Flow Rate (L/min) 2 Oxygen Delivery Method Room Air Weight: 141.067 kg Body Mass Index (BMI) 43.3 Physical Exam Const alert, oriented x3, no apparent distress and well nourished Constitutional Narrative: Morbidly obese, middle-aged, white male, sitting up in bed, appears comfortable and nontoxic General Appearance: cooperative and comfortable Nutritional Appearance: morbidly obese HEENT head/scalp atraumatic and moist oral mucous membranes Resp normal respiratory effort, no retractions, no use of accessory muscles and clearto auscultation bilaterally Resp Narrative: Distant due to body habitus Cardio regular rate, regular rhythm, S1 normal heart sound, S2 normal heart sound, no murmurs, no rub, no gallops and no clicks GI normal to inspection, nondistended, normoactive bowel sounds, soft to palpation and non-tender GI Narrative: colostomy present Extremity Extremity Narrative: Chronic bilateral lower extremity edema due to history of paraplegia and lack ofmovement, no cyanosis or clubbing General Extremity: edema bilateral lower extremity Details: moderate Skin Wounds: wounds noted Wound Narrative: as noted in clinical panel - large sacral ulcer and right ischial ulcer, no visible bone, shearing injury of left ischial area, area is irregular with fringe like skin in areas from repetitive shearing and pressure Neuro oriented x3, CN's II-XII intact bilaterally, No moves all extremities, No no focal motor deficits and No no sensory deficits noted Neuro Narrative: Bilateral lower extremity flaccidity due to history of L1 injury Speech: speech normal Psych affect normal Psych Narrative: Very pleasant, interacts appropriately Debridement Note Debridement Note Wound debrided: left ischium Laterality: Left Wound Grade/Stage: Stage 2 Anesthesia Used: 4% Lidocaine Solution Depth: Down to and including healthy tissue and in the subcutaneous layer Percentage of wound debrided: 100 Instrument Used: 7mm curette Tissue Removed: Yellow slough, devitalized tissue Severity: Limited To Skin Breakdown Amount of bleeding with debridement: None Patient tolerated procedure: Patient tolerated procedure well Post-Debridement Measurements and Additional Note: Post-Debridement Measurements/Treatment - Nurse 1 - General Ulcer Assessment Start: 09/14/24 08:52 Freq: Status: Active Protocol: ELENA Activity Type Activity Date Activity User E-sign Co-sign Detail Recorded Client Recorded Date Recorded By Document 09/14/24 08:52 [id number] 09/14/24 09:10 KW Document 09/21/24 09:17 RB [id number] 09/21/24 09:22 RB 09/14/24 09/21/24 08:52 09:17 - Today's Visit Information Type of service Follow-up Visit Follow-up Visit (Physician/WATER REUSE PROGRAM MANAGER (Physician/WATER REUSE PROGRAM MANAGER ) ) Arrival Mode Wheelchair Wheelchair Transfer Assistance Kelli Lift Kelli Lift Patient Identification Verified (Name & Yes Yes ) Patient Requires Transmission-Based No Precautions Height and Weight Body Mass Index (BMI) 43.3 43.3 BMI Classification Obese Obese Vital Signs Temperature (97.8 F-99.1 F) 97.8 F 97.4 F L Temperature Source Temporal Temporal Pulse Rate (60-100) 103 H 105 H Pulse Location Monitor Monitor Respiratory Rate (12-18) 18 18 Respiratory rate source Observation Observation Oxygen Delivery Method Room Air Blood Pressure (90/60-120/80) 146/73 H 135/75 H Blood Pressure Mean (mm Hg) 97 95 Source Monitor Monitor Position Sitting Semi-Fowlers Blood Pressure Location Left Forearm Left Arm History Since Last Visit- (Skip if this is Patient's initial visit) Have you changed medications since your No No last visit? Any new allergies or adverse reactions No No Had a fall/change in ADL's that may No No increase risk of falls Signs or symptoms of abuse and/or No No neglect since last visit Have you been in the hospital since your No No last visit? Has dressing in place as prescribed Yes Yes Has compression in place as prescribed Yes N/A Has offloadiing in place as prescribed N/A Yes Experienced any changes in pain level or No No management Left Footwear No Footwear Right Footwear No Footwear Pain Scale: 0-10 Numeric Is Patient Pain Free? Yes Yes WC - Nurse 1 - General Ulcer Measurement Start: 09/14/24 08:52 Freq: Status: Active Protocol: Activity Type Activity Date Activity User E-sign Co-sign Detail Recorded Client Recorded Date Recorded By Document 09/14/24 08:52 KW [id number] 09/14/24 09:10 KW Document 09/21/24 09:17 RB [id number] 09/21/24 09:22 RB 09/14/24 09/21/24 08:52 09:17 Wound Center Nurse 1 scrotum -Combined with other wound No No -Current Size (cm) - Length 1 2 -Current Size (cm) - Width 0.5 0.5 -Current Size (cm) - Depth 0.1 0.1 -Total Square Cm 0.5 1.0 -Photo Taken Yes Yes -Tunneling No No -Undermining/Tunneling No No -Circular Undermining No No -Exudate Amt Large Medium -Exudate Type Serosanguineous Serosanguineous -Wound Margin Thickened Thickened -Granulation Amt Medium (34-66%) Medium (34-66%) -Granulation Quality Solvang Solvang -Slough/Fibrin Yes Yes -Necrosis Amt Medium (34-66%) Medium (34-66%) -Necrotic Tissue Type Adherent Slough Adherent Slough -Structure Exposed N/A N/A -Texture (Trish-wound Skin Appearance) Assessed, Excoriation Excoriation -Moisture (Trish-wound Skin Appearance) Assessed Assessed -Color (Trish-wound Skin Appearance) Assessed Assessed -Temperature (Trish-wound Skin No Abnormality No Abnormality Appearance) (Pt Warm) (Pt Warm) -Tenderness on Palpation (Trish-wound No No Skin Appearance) -Ulcer Cleansing Wound Cleanser Wound Cleanser -Foul Odor after Cleansing No No -Anesthetic Used 4% Lidocaine 4% Lidocaine Solution Solution 3. R ischium -Combined with other wound No No -Current Size (cm) - Length 8.5 8.5 -Current Size (cm) - Width 5 4.5 -Current Size (cm) - Depth 0.1 0.2 -Total Square Cm 42.5 38.25 -Photo Taken Yes Yes -Tunneling No No -Undermining/Tunneling No No -Circular Undermining No No -Exudate Amt Large Medium -Exudate Type Serosanguineous Serosanguineous -Wound Margin Distinct, Thickened Outline Attached -Granulation Amt Medium (34-66%) Medium (34-66%) -Granulation Quality Solvang Solvang -Slough/Fibrin Yes Yes -Necrosis Amt Small (1-33%) Small (1-33%) -Necrotic Tissue Type Adherent Slough Adherent Slough -Structure Exposed N/A N/A -Texture (Trish-wound Skin Appearance) Assessed, Assessed, Excoriation Excoriation -Moisture (Trish-wound Skin Appearance) Assessed Assessed -Color (Trish-wound Skin Appearance) Assessed Assessed -Temperature (Trish-wound Skin No Abnormality No Abnormality Appearance) (Pt Warm) (Pt Warm) -Tenderness on Palpation (Trish-wound No No Skin Appearance) -Ulcer Cleansing Rinsed/ Wound Cleanser Irrigated with Saline -Foul Odor after Cleansing No No -Anesthetic Used 4% Lidocaine 4% Lidocaine Solution Solution 2. L ischium -Combined with other wound No No -Current Size (cm) - Length 2 2.5 -Current Size (cm) - Width 3.5 1.5 -Current Size (cm) - Depth 0.1 0.1 -Total Square Cm 7.0 3.75 -Photo Taken Yes Yes -Tunneling No No -Undermining/Tunneling No No -Circular Undermining No No -Exudate Amt Large Medium -Exudate Type Serosanguineous Serosanguineous -Wound Margin Distinct, Thickened Outline Attached -Granulation Amt Medium (34-66%) Medium (34-66%) -Granulation Quality Solvang Solvang -Slough/Fibrin Yes Yes -Necrosis Amt Small (1-33%) Small (1-33%) -Necrotic Tissue Type Adherent Slough Adherent Slough -Structure Exposed N/A N/A -Texture (Trish-wound Skin Appearance) Assessed, Assessed, Excoriation Excoriation -Moisture (Trish-wound Skin Appearance) Assessed Assessed -Color (Trish-wound Skin Appearance) Assessed Assessed -Temperature (Trish-wound Skin No Abnormality No Abnormality Appearance) (Pt Warm) (Pt Warm) -Tenderness on Palpation (Trish-wound No No Skin Appearance) -Ulcer Cleansing Rinsed/ Wound Cleanser Irrigated with Saline -Foul Odor after Cleansing No No -Anesthetic Used 4% Lidocaine 4% Lidocaine Solution Solution *1. coccyx -Combined with other wound No No -Current Size (cm) - Length 17 11 -Current Size (cm) - Width 15 15.5 -Current Size (cm) - Depth 0.2 0.1 -Total Square Cm 255 170.5 -Photo Taken Yes Yes -Tunneling No No -Undermining/Tunneling No No -Circular Undermining No No -Exudate Amt Large Large -Exudate Type Serosanguineous Serosanguineous -Wound Margin Distinct, Thickened Outline Attached -Granulation Amt Medium (34-66%) Medium (34-66%) -Granulation Quality Solvang Solvang -Slough/Fibrin Yes Yes -Necrosis Amt Medium (34-66%) Small (1-33%) -Necrotic Tissue Type Adherent Slough Adherent Slough -Structure Exposed N/A N/A -Texture (Trish-wound Skin Appearance) Assessed, Assessed, Excoriation Excoriation -Moisture (Trish-wound Skin Appearance) Assessed Assessed -Color (Trish-wound Skin Appearance) Assessed Assessed -Temperature (Trish-wound Skin No Abnormality No Abnormality Appearance) (Pt Warm) (Pt Warm) -Tenderness on Palpation (Trish-wound No No Skin Appearance) -Ulcer Cleansing Rinsed/ Wound Cleanser Irrigated with Saline -Foul Odor after Cleansing No No -Anesthetic Used 4% Lidocaine 4% Lidocaine Solution Solution WC - Nurse 2 - General Ulcer CM Notes Start: 09/14/24 08:52 Freq: Status: Active Protocol: Activity Type Activity Date Activity User E-sign Co-sign Detail Recorded Client Recorded Date Recorded By Document 09/14/24 09:17 [id number] 09/14/24 09:48 Document 09/21/24 09:30 [id number] 09/21/24 09:52 09/14/24 09/21/24 09:17 09:30 Wound Center Nurse 2 scrotum -Time 09:35 09:42 -Correct Patient Yes Yes -Correct Side, Site, Position Yes Yes -Correct Procedure No No -Procedure Performed No No -Post Debridement (cm) - Length 3.0 -Post Debridement (cm) - Width 1.0 -Post Debridement (cm) - Depth 0.1 -Total Square (Post) (cm) 3.00 -Tunneling No No -Undermining/Tunneling No No -Circular Undermining No No -Wound/Ulcer Outcome Not Healed Healed- Epithelialized -Ulcer Cleansing Rinsed/ Not Cleansed Irrigated with Saline -Foul Odor after Cleansing No No -Bioengineered Tissue No No -Bleeding Controlled with NA NA -Assistive Device(s) Wheelchair -Pressure Reduction Wheelchair cushion 3. R ischium -Time 09:20 09:32 -Correct Patient Yes Yes -Correct Side, Site, Position Yes Yes -Correct Procedure Yes Yes -Procedure Performed Yes Yes -Type of Procedure Debridement Debridement -Clinical Debridement Muscle / Fascia Muscle / Fascia -Tissue Removed Muscle Muscle -Post Debridement (cm) - Length 8.4 9.0 -Post Debridement (cm) - Width 4.8 4.9 -Post Debridement (cm) - Depth 0.1 0.1 -Total Square (Post) (cm) 40.32 44.10 -Area of Debridement (cm) - Length 8.4 9.0 -Area of Debridement (cm) - Width 4.8 4.9 -Total Square (Area) (cm) 40.32 44.10 -Tunneling No No -Undermining/Tunneling No No -Circular Undermining No No -Wound/Ulcer Outcome Not Healed Not Healed -Ulcer Cleansing Rinsed/ Rinsed/ Irrigated with Irrigated with Saline Saline -Foul Odor after Cleansing No No -Bioengineered Tissue No No -Bleeding Controlled with Pressure,Silver Pressure Nitrate ($) -Treatment Response Procedure Procedure Tolerated Well Tolerated Well -Offloading No No -Assistive Device(s) Wheelchair -Pressure Reduction Wheelchair cushion -Debridement - Muscle / Fascia, 1st No No 20sq cm 2. L ischium -Time 09:20 09:34 -Correct Patient Yes Yes -Correct Side, Site, Position Yes Yes -Correct Procedure Yes Yes -Procedure Performed Yes Yes -Type of Procedure Debridement Debridement -Clinical Debridement Subcutaneous Subcutaneous -Tissue Removed Subcutaneous Subcutaneous -Post Debridement (cm) - Length 2.0 2.5 -Post Debridement (cm) - Width 2.5 2.5 -Post Debridement (cm) - Depth 0.1 0.1 -Total Square (Post) (cm) 5.00 6.25 -Area of Debridement (cm) - Length 2.0 2.5 -Area of Debridement (cm) - Width 2.5 2.0 -Total Square (Area) (cm) 5.00 5.00 -Tunneling No No -Undermining/Tunneling No No -Circular Undermining No No -Wound/Ulcer Outcome Not Healed Not Healed -Ulcer Cleansing Rinsed/ Rinsed/ Irrigated with Irrigated with Saline Saline -Foul Odor after Cleansing No No -Bioengineered Tissue No No -Bleeding Controlled with Pressure Pressure -Treatment Response Procedure Procedure Tolerated Well Tolerated Well -Offloading No No -Debridement - Subq, 1st 20sq cm Yes Yes *1. coccyx -Time 09:20 09:35 -Correct Patient Yes Yes -Correct Side, Site, Position Yes Yes -Correct Procedure Yes Yes -Procedure Performed Yes Yes -Type of Procedure Debridement Debridement -Clinical Debridement Muscle / Fascia Muscle / Fascia -Tissue Removed Muscle Muscle -Post Debridement (cm) - Length 16.0 15.0 -Post Debridement (cm) - Width 15.5 16.0 -Post Debridement (cm) - Depth 0.1 0.1 -Total Square (Post) (cm) 248.00 240.00 -Area of Debridement (cm) - Length 16.0 15 -Area of Debridement (cm) - Width 15.5 16 -Total Square (Area) (cm) 248.00 240 -Tunneling No No -Undermining/Tunneling No No -Circular Undermining No No -Wound/Ulcer Outcome Not Healed Not Healed -Ulcer Cleansing Rinsed/ Rinsed/ Irrigated with Irrigated with Saline Saline -Foul Odor after Cleansing No No -Bioengineered Tissue No No -Bleeding Controlled with Pressure Pressure -Treatment Response Procedure Tolerated Well -Offloading No No -Assistive Device(s) Wheelchair Wheelchair -Pressure Reduction Wheelchair Wheelchair cushion cushion -Debridement - Muscle / Fascia, 1st Yes Yes 20sq cm -Debridement, Muscle/Fascia, ea addt'l 14 14 20sq cm or part thereof Pain Scale: 0-10 Numeric Is Patient Pain Free? Yes Yes - Nurse 3 - General Ulcer D/C NN Start: 09/14/24 08:52 Freq: Status: Active Protocol: Activity Type Activity Date Activity User E-sign Co-sign Detail Recorded Client Recorded Date Recorded By Document 09/14/24 10:40 RB [id number] 09/14/24 10:42 RB Document 09/21/24 10:19 RB [id number] 09/21/24 10:21 RB 09/14/24 09/21/24 10:40 10:19 Wound Care Center Nurse 3 scrotum -Ulcer Cleansing Rinsed/ Irrigated with Saline -Primary Dressing Applied Aquacel Extra -Other Dressing abd dakins moistened gauze /ABD -Primary Dressing Covered/Secured with Dry Gauze, Dry Gauze, Secured with Secured with Tape Tape -Aquacel Extra 1 3. R ischium -Primary Dressing Applied Optilok 6.5x10 -Other Dressing dakins gauze dakins moistened gauze /ABD -Primary Dressing Covered/Secured with Secured with Dry Gauze, Tape Secured with Tape -Optilok 6.5x10 1 2. L ischium -Other Dressing dakins dakins moistened gauze moistened gauze / ABD -Primary Dressing Covered/Secured with Dry Gauze, Secured with Secured with Tape Tape *1. coccyx -Other Dressing dakins dakins moistened gauze moistened /ABD / superabsorber -Primary Dressing Covered/Secured with Dry Gauze, Secured with Secured with Tape Tape Treatment Response Procedure Procedure Tolerated Well Tolerated Well Pain Scale: 0-10 Numeric Is Patient Pain Free? Yes Yes WC - Visit Discharge Discharge Condition Stable Stable Ambulatory Status Wheelchair Wheelchair Transportation [facility] Medication Reconcilliation completed & No No provided to patient/care provider Clinical Summary of Care Provided Yes Yes Notes: kelli lift assit x 4 Additional Wound Wound debrided: right ischium Laterality: Right Wound Grade/Stage: Stage III Type of Debridement: Excisional debridement Anesthesia Used: 4% Lidocaine Solution Depth: Down to and including healthy tissue and in the subcutaneous layer Percentage of wound debrided: 100 Instrument Used: 7mm curette Tissue Removed: Yellow slough, devitalized tissue Severity: Fat Layer Exposed Amount of bleeding with debridement: Moderate Bleeding Controlled with: Compression and gauze, Silver Nitrate and - (2-0 nylonsuture - 3 simple interrupted sutures) Patient tolerated procedure: Patient tolerated procedure well Additional Wound Wound debrided: coccyx Laterality: Not Applicable Wound Grade/Stage: Stage IV Type of Debridement: Excisional debridement Anesthesia Used: 4% Lidocaine Solution Depth: Down to and including healthy tissue, in the subcutaneous layer and to muscle Percentage of wound debrided: 100 Instrument Used: 7mm curette Tissue Removed: Yellow slough, devitalized tissue Severity: Necrosis of Muscle Amount of bleeding with debridement: Moderate Bleeding Controlled with: Compression and gauze Patient tolerated procedure: Patient tolerated procedure well Assessment/Plan Assessment/Plan (1) Chronic pain: CODE(S): G89.29 - Other chronic pain QUALIFIERS: Chronic pain type: chronic pain syndrome Qualified Code(s): G89.4 - Chronic pain syndrome (2) Hypoxia: CODE(S): R09.02 - Hypoxemia (3) History of paraplegia: CODE(S): Z86.69 - Personal history of other diseases of the nervous systemand sense organs (4) Chronic indwelling Bartlett catheter: CODE(S): Z97.8 - Presence of other specified devices (5) Type 2 diabetes mellitus: CODE(S): E11.9 - Type 2 diabetes mellitus without complications QUALIFIERS: Diabetes mellitus complication detail: with polyneuropathy Diabetes mellitus complication status: with neurologic complications Diabetes mellitus fpc insulin use: without intermediate card tender use Qualified Code(s): E11.42 - Type 2 diabetes mellitus with diabetic polyneuropathy (6) Chronic anticoagulation: CODE(S): Z79.01 - MCFP (current) use of anticoagulants (7) History of deep vein thrombosis: CODE(S): Z86.718 - Personal history of other venous thrombosis and embolism (8) Decubitus ulcer of sacral region, stage 4: CODE(S): L89.154 - Pressure ulcer of sacral region, stage 4 (9) Decubitus ulcer of left perineal ischial region, stage 2: CODE(S): L89.322 - Pressure ulcer of left buttock, stage 2 (10) Hx of spinal surgery: CODE(S): Z98.890 - Other specified postprocedural states (11) Colostomy status: CODE(S): Z93.3 - Colostomy status (12) HTN (hypertension): CODE(S): I10 - Essential (primary) hypertension QUALIFIERS: Hypertension type: primary hypertension Qualified Code(s): I10 - Essential (primary) hypertension (13) BATOOL treated with BiPAP: CODE(S): G47.33 - Obstructive sleep apnea (adult) (pediatric) (14) Lymphedema: CODE(S): I89.0 - Lymphedema, not elsewhere classified (15) Decubitus ulcer of right ischium, stage 3: CODE(S): L89.313 - Pressure ulcer of right buttock, stage 3 PLAN: Plan Debridement performed today in clinic as annotated above. At home wound-care instructions: The patient's ulcers will be washed with antibacterial soap and water and then will use Dakins wet to dry to wound bed and cover with gauze and superabsorber for heavy drainage twice daily. Keep dressing clean and dry. Off-loading: The patient was instructed to avoid pressure and friction on the affected areas. Reposition every 2 hours at minimum. Avoid prolonged standing and/or dangling of legs. When seated, feet should be elevated at chest level. Continue air mattress. Will write order for an alternating pressure air mattressto assist in offloading pressure. Diet: Patient encouraged to increase protein intake while taking caution to avoid high carbohydrate and/or sugar intake. He is getting W[place] protein supplement at [facility]. Labs/cultures/imaging: Will obtain previous imaging results. Most recent A1C 7.9% on 07/23/24. Wound culture showed multiple bacteria and he was started on Flagyl and Cefdinir. Follow-up: Return in 1 week for wound care follow up. Return sooner or report tothe emergency room should symptoms worsen, or new symptoms arise. Note: [employer] speech recognition overhead worker software was used to create portions of this document. Sound-alike and misspelled words, as well as other overhead worker errors may be contained in the documentation. 09/28/24 0815 <Electronically signed by Peter Thayer DO> Cosigner Signature (if applicable): CC: ~ Signed [facility] Work Phone: [phone] Progress note Author Peter Thayer [facility] Note Date/Time September 14, 2024 1:52pm [facility] [address] [place] [address] Progress Note - Wound Care 09/14/24 1108 MR#: [id number] Acct: [id number] Name: MELISSA ELIAS Rep #:[id number] : 1965 59 From: Peter Thayer DO PCP: Dr. Rocio Bartlett MD Status:R EG RCR Location: History of Present Illness Date of Service: 09/14/24 Chief Complaint: sacral decubitus ulcer History of Wound: Melissa is a pleasant 59 yo gentleman that has undergone an unfortunate series of events over the last several years which has left him paraplegic and with a sacral decubitus ulcer and residing in [facility]. He has been referred to the wound center for evaluation and treatment of his sacral ulcer. He has had a long history of degenerative disc disease of his spine and underwent spine surgery in August 2016 initially and then again in February 2017 due to osteomyelitis and infection of hardware. He underwent further surgery forfusion in December of 2020. He fell in November of 2022 getting up from his chair and then experienced worsening pain, weakness in his legs and ultimately became paraplegic from the waist down. He underwent surgery in [place] in January 2023 at [facility] and then had several complications including pneumonia, pulmonary embolisms and a sacral ulcer that developed into a large defect after multiple surgical debridements and osteomyelitis of his sacrum while at [facility] through the first part 2023 and then attempted to come home to be cared for by his elderly mother which was not successful and he was hospitalized and discharged to [facility] where he has been residing and continues to reside. He has undergone many different treatments for his sacral ulcer including wound vac, silver dressings and Dakins and does have an air mattress but it is not an alternating pressure air mattress. The staff does try to offload his ulcer with wedges and pillows but it is difficult due to his chronic back pain. He is currently having the wound dressed with Dakins wet to dry and super absorber dressings twice daily. he reports being on chronic antibiotic treatment and IV treatment over the past year and states that he had MRI that showed resolution of osteomyelitis. (Records unavailable). He currently does not have any symptoms of systemic infection or localized infection. Denies fever, chills, nausea. Subjective Subjective Melissa returns today for evaluation and treatment of a sacral decubitus ulcer. Hehas been tolerating dressing changes with Dakins and super absorber dressings. His wound culture came back with multiple bacteria anaerobic and aerobic including VRE. He is tolerating antibiotic treatment. Denies fever, chills, erythema. Objective Data Objective Data Vital Signs: Vital Signs Temp Pulse Resp BP Pulse Ox O2 Del Method O2 Flow Rate 97.8 F 103 H 18 146/73 H 96 Room Air 2 09/14/24 08:52 09/14/24 08:52 09/14/24 08:52 09/14/24 08:52 09/13/24 00:26 09/14/24 08:52 09/13/24 00:26 Oxygen Flow Rate (L/min) 2 Oxygen Delivery Method Room Air Weight: 141.067 kg Body Mass Index (BMI) 43.3 Physical Exam Const alert, oriented x3, no apparent distress and well nourished Constitutional Narrative: Morbidly obese, middle-aged, white male, sitting up in bed, appears comfortable and nontoxic General Appearance: cooperative and comfortable Nutritional Appearance: morbidly obese HEENT head/scalp atraumatic and moist oral mucous membranes Resp normal respiratory effort, no retractions, no use of accessory muscles and clearto auscultation bilaterally Resp Narrative: Distant due to body habitus Cardio regular rate, regular rhythm, S1 normal heart sound, S2 normal heart sound, no murmurs, no rub, no gallops and no clicks GI normal to inspection, nondistended, normoactive bowel sounds, soft to palpation and non-tender GI Narrative: colostomy present Extremity Extremity Narrative: Chronic bilateral lower extremity edema due to history of paraplegia and lack ofmovement, no cyanosis or clubbing General Extremity: edema bilateral lower extremity Details: moderate Skin Wounds: wounds noted Wound Narrative: as noted in clinical panel - large sacral ulcer and right ischial ulcer, no visible bone, shearing injury of left ischial area, area is irregular with fringe like skin in areas from repetitive shearing and pressure Neuro oriented x3, CN's II-XII intact bilaterally, No moves all extremities, No no focal motor deficits and No no sensory deficits noted Neuro Narrative: Bilateral lower extremity flaccidity due to history of L1 injury Speech: speech normal Psych affect normal Psych Narrative: Very pleasant, interacts appropriately Debridement Note Debridement Note Wound debrided: left ischium Laterality: Left Wound Grade/Stage: Stage 2 Anesthesia Used: 4% Lidocaine Solution Depth: Down to and including healthy tissue and in the subcutaneous layer Percentage of wound debrided: 100 Instrument Used: 7mm curette Tissue Removed: Yellow slough, devitalized tissue Severity: Limited To Skin Breakdown Amount of bleeding with debridement: None Patient tolerated procedure: Patient tolerated procedure well Post-Debridement Measurements and Additional Note: Post-Debridement Measurements/Treatment - Nurse 1 - General Ulcer Assessment Start: 09/14/24 08:52 Freq: Status: Active Protocol: ELENA Activity Type Activity Date Activity User E-sign Co-sign Detail Recorded Client Recorded Date Recorded By Document 09/14/24 08:52 CLOVER [id number] 09/14/24 09:10 KW 09/14/24 08:52 WC - Today's Visit Information Type of service Follow-up Visit (Physician/WATER REUSE PROGRAM MANAGER ) Arrival Mode Wheelchair Transfer Assistance Kelli Lift Patient Identification Verified (Name & Yes ) Height and Weight Body Mass Index (BMI) 43.3 BMI Classification Obese Vital Signs Temperature (97.8 F-99.1 F) 97.8 F Temperature Source Temporal Pulse Rate (60-100) 103 H Pulse Location Monitor Respiratory Rate (12-18) 18 Respiratory rate source Observation Oxygen Delivery Method Room Air Blood Pressure (90/60-120/80) 146/73 H Blood Pressure Mean (mm Hg) 97 Source Monitor Position Sitting Blood Pressure Location Left Forearm History Since Last Visit- (Skip if this is Patient's initial visit) Have you changed medications since your No last visit? Any new allergies or adverse reactions No Had a fall/change in ADL's that may No increase risk of falls Signs or symptoms of abuse and/or No neglect since last visit Have you been in the hospital since your No last visit? Has dressing in place as prescribed Yes Has compression in place as prescribed Yes Has offloadiing in place as prescribed N/A Experienced any changes in pain level or No management Left Footwear No Footwear Right Footwear No Footwear Pain Scale: 0-10 Numeric Is Patient Pain Free? Yes - Nurse 1 - General Ulcer Measurement Start: 09/14/24 08:52 Freq: Status: Active Protocol: Activity Type Activity Date Activity User E-sign Co-sign Detail Recorded Client Recorded Date Recorded By Document 09/14/24 08:52 CLOVER [id number] 09/14/24 09:10 CLOVER 09/14/24 08:52 Wound Center Nurse 1 scrotum -Combined with other wound No -Current Size (cm) - Length 1 -Current Size (cm) - Width 0.5 -Current Size (cm) - Depth 0.1 -Total Square Cm 0.5 -Photo Taken Yes -Tunneling No -Undermining/Tunneling No -Circular Undermining No -Exudate Amt Large -Exudate Type Serosanguineous -Wound Margin Thickened -Granulation Amt Medium (34-66%) -Granulation Quality [place] -Slough/Fibrin Yes -Necrosis Amt Medium (34-66%) -Necrotic Tissue Type Adherent Slough -Structure Exposed N/A -Texture (Trish-wound Skin Appearance) Assessed, Excoriation -Moisture (Trish-wound Skin Appearance) Assessed -Color (Trish-wound Skin Appearance) Assessed -Temperature (Trish-wound Skin No Abnormality Appearance) (Pt Warm) -Tenderness on Palpation (Trish-wound No Skin Appearance) -Ulcer Cleansing Wound Cleanser -Foul Odor after Cleansing No -Anesthetic Used 4% Lidocaine Solution 3. R ischium -Combined with other wound No -Current Size (cm) - Length 8.5 -Current Size (cm) - Width 5 -Current Size (cm) - Depth 0.1 -Total Square Cm 42.5 -Photo Taken Yes -Tunneling No -Undermining/Tunneling No -Circular Undermining No -Exudate Amt Large -Exudate Type Serosanguineous -Wound Margin Distinct, Outline Attached -Granulation Amt Medium (34-66%) -Granulation Quality [place]vang -Slough/Fibrin Yes -Necrosis Amt Small (1-33%) -Necrotic Tissue Type Adherent Slough -Structure Exposed N/A -Texture (Trish-wound Skin Appearance) Assessed, Excoriation -Moisture (Trish-wound Skin Appearance) Assessed -Color (Trish-wound Skin Appearance) Assessed -Temperature (Trish-wound Skin No Abnormality Appearance) (Pt Warm) -Tenderness on Palpation (Trish-wound No Skin Appearance) -Ulcer Cleansing Rinsed/ Irrigated with Saline -Foul Odor after Cleansing No -Anesthetic Used 4% Lidocaine Solution 2. L ischium -Combined with other wound No -Current Size (cm) - Length 2 -Current Size (cm) - Width 3.5 -Current Size (cm) - Depth 0.1 -Total Square Cm 7.0 -Photo Taken Yes -Tunneling No -Undermining/Tunneling No -Circular Undermining No -Exudate Amt Large -Exudate Type Serosanguineous -Wound Margin Distinct, Outline Attached -Granulation Amt Medium (34-66%) -Granulation Quality [place]vang -Slough/Fibrin Yes -Necrosis Amt Small (1-33%) -Necrotic Tissue Type Adherent Slough -Structure Exposed N/A -Texture (Trish-wound Skin Appearance) Assessed, Excoriation -Moisture (Trish-wound Skin Appearance) Assessed -Color (Trish-wound Skin Appearance) Assessed -Temperature (Trish-wound Skin No Abnormality Appearance) (Pt Warm) -Tenderness on Palpation (Trish-wound No Skin Appearance) -Ulcer Cleansing Rinsed/ Irrigated with Saline -Foul Odor after Cleansing No -Anesthetic Used 4% Lidocaine Solution *1. coccyx -Combined with other wound No -Current Size (cm) - Length 17 -Current Size (cm) - Width 15 -Current Size (cm) - Depth 0.2 -Total Square Cm 255 -Photo Taken Yes -Tunneling No -Undermining/Tunneling No -Circular Undermining No -Exudate Amt Large -Exudate Type Serosanguineous -Wound Margin Distinct, Outline Attached -Granulation Amt Medium (34-66%) -Granulation Quality Solvang -Slough/Fibrin Yes -Necrosis Amt Medium (34-66%) -Necrotic Tissue Type Adherent Slough -Structure Exposed N/A -Texture (Trish-wound Skin Appearance) Assessed, Excoriation -Moisture (Trish-wound Skin Appearance) Assessed -Color (Trish-wound Skin Appearance) Assessed -Temperature (Trish-wound Skin No Abnormality Appearance) (Pt Warm) -Tenderness on Palpation (Trish-wound No Skin Appearance) -Ulcer Cleansing Rinsed/ Irrigated with Saline -Foul Odor after Cleansing No -Anesthetic Used 4% Lidocaine Solution WC - Nurse 2 - General Ulcer CM Notes Start: 09/14/24 08:52 Freq: Status: Active Protocol: Activity Type Activity Date Activity User E-sign Co-sign Detail Recorded Client Recorded Date Recorded By Document 09/14/24 09:17 [id number] 09/14/24 09:48 09/14/24 09:17 Wound Center Nurse 2 scrotum -Time 09:35 -Correct Patient Yes -Correct Side, Site, Position Yes -Correct Procedure No -Procedure Performed No -Post Debridement (cm) - Length 3.0 -Post Debridement (cm) - Width 1.0 -Post Debridement (cm) - Depth 0.1 -Total Square (Post) (cm) 3.00 -Tunneling No -Undermining/Tunneling No -Circular Undermining No -Wound/Ulcer Outcome Not Healed -Ulcer Cleansing Rinsed/ Irrigated with Saline -Foul Odor after Cleansing No -Bioengineered Tissue No -Bleeding Controlled with NA -Assistive Device(s) Wheelchair -Pressure Reduction Wheelchair cushion 3. R ischium -Time 09:20 -Correct Patient Yes -Correct Side, Site, Position Yes -Correct Procedure Yes -Procedure Performed Yes -Type of Procedure Debridement -Clinical Debridement Muscle / Fascia -Tissue Removed Muscle -Post Debridement (cm) - Length 8.4 -Post Debridement (cm) - Width 4.8 -Post Debridement (cm) - Depth 0.1 -Total Square (Post) (cm) 40.32 -Area of Debridement (cm) - Length 8.4 -Area of Debridement (cm) - Width 4.8 -Total Square (Area) (cm) 40.32 -Tunneling No -Undermining/Tunneling No -Circular Undermining No -Wound/Ulcer Outcome Not Healed -Ulcer Cleansing Rinsed/ Irrigated with Saline -Foul Odor after Cleansing No -Bioengineered Tissue No -Bleeding Controlled with Pressure,Silver Nitrate ($) -Treatment Response Procedure Tolerated Well -Offloading No -Assistive Device(s) Wheelchair -Pressure Reduction Wheelchair cushion -Debridement - Muscle / Fascia, 1st No 20sq cm 2. L ischium -Time 09:20 -Correct Patient Yes -Correct Side, Site, Position Yes -Correct Procedure Yes -Procedure Performed Yes -Type of Procedure Debridement -Clinical Debridement Subcutaneous -Tissue Removed Subcutaneous -Post Debridement (cm) - Length 2.0 -Post Debridement (cm) - Width 2.5 -Post Debridement (cm) - Depth 0.1 -Total Square (Post) (cm) 5.00 -Area of Debridement (cm) - Length 2.0 -Area of Debridement (cm) - Width 2.5 -Total Square (Area) (cm) 5.00 -Tunneling No -Undermining/Tunneling No -Circular Undermining No -Wound/Ulcer Outcome Not Healed -Ulcer Cleansing Rinsed/ Irrigated with Saline -Foul Odor after Cleansing No -Bioengineered Tissue No -Bleeding Controlled with Pressure -Treatment Response Procedure Tolerated Well -Offloading No -Debridement - Subq, 1st 20sq cm Yes *1. coccyx -Time 09:20 -Correct Patient Yes -Correct Side, Site, Position Yes -Correct Procedure Yes -Procedure Performed Yes -Type of Procedure Debridement -Clinical Debridement Muscle / Fascia -Tissue Removed Muscle -Post Debridement (cm) - Length 16.0 -Post Debridement (cm) - Width 15.5 -Post Debridement (cm) - Depth 0.1 -Total Square (Post) (cm) 248.00 -Area of Debridement (cm) - Length 16.0 -Area of Debridement (cm) - Width 15.5 -Total Square (Area) (cm) 248.00 -Tunneling No -Undermining/Tunneling No -Circular Undermining No -Wound/Ulcer Outcome Not Healed -Ulcer Cleansing Rinsed/ Irrigated with Saline -Foul Odor after Cleansing No -Bioengineered Tissue No -Bleeding Controlled with Pressure -Offloading No -Assistive Device(s) Wheelchair -Pressure Reduction Wheelchair cushion -Debridement - Muscle / Fascia, 1st Yes 20sq cm -Debridement, Muscle/Fascia, ea addt'l 14 20sq cm or part thereof Pain Scale: 0-10 Numeric Is Patient Pain Free? Yes WC - Nurse 3 - General Ulcer D/C NN Start: 09/14/24 08:52 Freq: Status: Active Protocol: Activity Type Activity Date Activity User E-sign Co-sign Detail Recorded Client Recorded Date Recorded By Document 09/14/24 10:40 RB [id number] 09/14/24 10:42 RB 09/14/24 10:40 Wound Care Center Nurse 3 scrotum -Ulcer Cleansing Rinsed/ Irrigated with Saline -Primary Dressing Applied Aquacel Extra -Other Dressing abd -Primary Dressing Covered/Secured with Dry Gauze, Secured with Tape -Aquacel Extra 1 3. R ischium -Primary Dressing Applied Optilok 6.5x10 -Other Dressing dakins gauze -Primary Dressing Covered/Secured with Secured with Tape -Optilok 6.5x10 1 2. L ischium -Other Dressing dakins moistened gauze -Primary Dressing Covered/Secured with Dry Gauze, Secured with Tape *1. coccyx -Other Dressing dakins moistened gauze / superabsorber -Primary Dressing Covered/Secured with Dry Gauze, Secured with Tape Treatment Response Procedure Tolerated Well Pain Scale: 0-10 Numeric Is Patient Pain Free? Yes WC - Visit Discharge Discharge Condition Stable Ambulatory Status Wheelchair Transportation [place] Medication Reconcilliation completed & No provided to patient/care provider Clinical Summary of Care Provided Yes Notes: kelli lift assit x 4 Additional Wound Wound debrided: right ischium Laterality: Right Wound Grade/Stage: Stage III Type of Debridement: Excisional debridement Anesthesia Used: 4% Lidocaine Solution Depth: Down to and including healthy tissue and in the subcutaneous layer Percentage of wound debrided: 100 Instrument Used: 7mm curette Tissue Removed: Yellow slough, devitalized tissue Severity: Fat Layer Exposed Amount of bleeding with debridement: Moderate Bleeding Controlled with: Compression and gauze, Silver Nitrate and - (2-0 nylonsuture - 3 simple interrupted sutures) Patient tolerated procedure: Patient tolerated procedure well Additional Wound Wound debrided: coccyx Laterality: Not Applicable Wound Grade/Stage: Stage IV Type of Debridement: Excisional debridement Anesthesia Used: 4% Lidocaine Solution Depth: Down to and including healthy tissue, in the subcutaneous layer and to muscle Percentage of wound debrided: 100 Instrument Used: 7mm curette Tissue Removed: Yellow slough, devitalized tissue Severity: Necrosis of Muscle Amount of bleeding with debridement: Moderate Bleeding Controlled with: Compression and gauze Patient tolerated procedure: Patient tolerated procedure well Assessment/Plan Assessment/Plan (1) Chronic pain: CODE(S): G89.29 - Other chronic pain QUALIFIERS: Chronic pain type: chronic pain syndrome Qualified Code(s): G89.4 - Chronic pain syndrome (2) Hypoxia: CODE(S): R09.02 - Hypoxemia (3) History of paraplegia: CODE(S): Z86.69 - Personal history of other diseases of the nervous systemand sense organs (4) Chronic indwelling Bartlett catheter: CODE(S): Z97.8 - Presence of other specified devices (5) Type 2 diabetes mellitus: CODE(S): E11.9 - Type 2 diabetes mellitus without complications QUALIFIERS: Diabetes mellitus intermediate card tender insulin use: without intermediate card tender use Diabetes mellitus complication status: with neurologic complications Diabetes mellitus complication detail: with polyneuropathy Qualified Code(s): E11.42 - Type 2 diabetes mellitus with diabetic polyneuropathy (6) Chronic anticoagulation: CODE(S): Z79.01 - intermediate card tender (current) use of anticoagulants (7) History of deep vein thrombosis: CODE(S): Z86.718 - Personal history of other venous thrombosis and embolism (8) Decubitus ulcer of sacral region, stage 4: CODE(S): L89.154 - Pressure ulcer of sacral region, stage 4 (9) Decubitus ulcer of left perineal ischial region, stage 2: CODE(S): L89.322 - Pressure ulcer of left buttock, stage 2 (10) Hx of spinal surgery: CODE(S): Z98.890 - Other specified postprocedural states (11) Colostomy status: CODE(S): Z93.3 - Colostomy status (12) HTN (hypertension): CODE(S): I10 - Essential (primary) hypertension QUALIFIERS: Hypertension type: primary hypertension Qualified Code(s): I10 - Essential (primary) hypertension (13) BATOOL treated with BiPAP: CODE(S): G47.33 - Obstructive sleep apnea (adult) (pediatric) (14) Lymphedema: CODE(S): I89.0 - Lymphedema, not elsewhere classified (15) Decubitus ulcer of right ischium, stage 3: CODE(S): L89.313 - Pressure ulcer of right buttock, stage 3 PLAN: Plan Debridement performed today in clinic as annotated above. At home wound-care instructions: The patient's ulcers will be washed with antibacterial soap and water and then will use Dakins wet to dry to wound bed and cover with gauze and superabsorber for heavy drainage twice daily. Keep dressing clean and dry. Off-loading: The patient was instructed to avoid pressure and friction on the affected areas. Reposition every 2 hours at minimum. Avoid prolonged standing and/or dangling of legs. When seated, feet should be elevated at chest level. Continue air mattress. Will write order for an alternating pressure air mattressto assist in offloading pressure. Diet: Patient encouraged to increase protein intake while taking caution to avoid high carbohydrate and/or sugar intake. He is getting Wiliam protein supplement at [facility]. Labs/cultures/imaging: Will obtain previous imaging results. Most recent A1C 7.9% on 07/23/24. Wound culture showed multiple bacteria and he was started on Flagyl and Cefdinir. Follow-up: Return in 1 week for wound care follow up. Return sooner or report tothe emergency room should symptoms worsen, or new symptoms arise. Note: [employer] speech recognition overhead worker software was used to create portions of this document. Sound-alike and misspelled words, as well as other overhead worker errors may be contained in the documentation. 09/14/24 0415 <Electronically signed by Peter Thayer DO> Cosigner Signature (if applicable): CC: ~ Signed [facility] Work Phone: 1(631) 800-392103-14-2025 Telephone encounter Note* Telephone Encounter - Yue Summers CMA - 07/27/2024 2:36 PM EDT Images from the original note were not included. Juan Ramon BALBUENA 06/28/24 8:31 AM Note ----- Message from Lenard Ling MD sent at 05/30/2024 11:26 AM EST ----- Juan Ramon, This patient needs,Reconstruction of a sacral decubitus ulcer with gluteal artery myocutaneous flapversus 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 He is also overweight. Please encourage him to lose as much weight as possible. Schedule him at [facility]. Anticipate inpatient stay of 14 days. It might be a bilateral procedure. Thank you. Lenard Ling MD [id number] Miscellaneous Notes* Telephone Encounter - Yue Summers CMA - 07/27/2024 2:36 PM EDT Images from the original note were not included. Juan Ramon BALBUENA 06/28/24 8:31 AM Note ----- Message from Lenard Ling MD sent at 05/30/2024 11:26 AM EST ----- Juan Ramon, This patient needs,Reconstruction of a sacral decubitus ulcer with gluteal artery myocutaneous flapversus 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 He is also overweight. Please encourage him to lose as much weight as possible. Schedule him at [facility]. Anticipate inpatient stay of 14 days. It might be a bilateral procedure. Thank you. Lenard Ling MD * Telephone Encounter - Angela Ferguson - 06/28/2024 10:07 AM EST Case# Procedure: RECONSTRUCTION OF SACRAL DECUBITUS ULCER WITH GLUTEAL ARTERY MYOCUTANEOUS FLAP VERSUS LUMBAR ARTERY QUALITY CONTROL MICROBIOLOGIST FLAP Sx Date: 07/30/2024 Time: 3 HOURS Location: [facility] Anesthesia: GENERAL CPT: 25439, 94001, 84568, 24722 ICD-10: L89.154 Special Equipment: PAT: Submitted auth thru insurance portal, awaiting determination. CONTACT HAMZAH AT [phone] TO COORDINATE PATIENT'S TRANSPORTATION documented in this [facility]03-14-2025 Miscellaneous Notes* Telephone Encounter - Yue Summers CMA - 07/27/2024 2:36 PM EDT Images from the original note were not included. Juan Ramon BALBUENA 06/28/24 8:31 AM Note ----- Message from Lenard Ling MD sent at 05/30/2024 11:26 AM EST ----- Juan Ramon, This patient needs,Reconstruction of a sacral decubitus ulcer with gluteal artery myocutaneous flapversus 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 He is also overweight. Please encourage him to lose as much weight as possible. Schedule him at [facility]. Anticipate inpatient stay of 14 days. It might be a bilateral procedure. Thank you. Lenard Ling MD * Telephone Encounter - Angela Ferguson - 06/28/2024 10:07 AM EST Case# Procedure: RECONSTRUCTION OF SACRAL DECUBITUS ULCER WITH GLUTEAL ARTERY MYOCUTANEOUS FLAP VERSUS LUMBAR ARTERY QUALITY CONTROL MICROBIOLOGIST FLAP Sx Date: 07/30/2024 Time: 3 HOURS Location: [facility] Anesthesia: GENERAL CPT: 05863, 75620, 73949, 02668 ICD-10: L89.154 Special Equipment: PAT: Submitted auth thru insurance portal, awaiting determination. CONTACT HAMZAH AT [phone] TO COORDINATE PATIENT'S TRANSPORTATION SPOKE WITH PATIENT, HE WISHES TO PUT OFF SURGERY FOR NOW, WILL CALL WHEN READY TO SCHEDULE documented in this [facility]03-05-2025 Evaluation note* Diagnosis Onset Date Resolution Status Admit Date Abscess of back acute July 8:42am Chronic anticoagulation acute A pril 2024 9:30am Colostomy status acute September 072024 9:30am Decubitus ulcer of left trish syd[place] ischial region, stage 2 acute September 072024 9:30am Decubitus ulcer of right isc hium, stage 3 acute September 07, 2024 9:30am Decubitus ulcer of sacral re gion, stage 4 acute September 07, 2024 9:30am History of deep vein thrombosis acut e September 07, 2024 9:30am History of paraplegia acute Apr il 2024 9:30am Hx of spinal surgery acute Apri l 2024 9:30am Hypoxia acute September 07 9:30am Lymphedema acute September 07 9:30am BATOOL treated with BiPAP acute Ap ril 2024 9:30am Type 2 diabetes mellitus acute September 07, 2024 9:30am Chronic indwelling Bartlett catheter ch ronic September 07, 2024 9:30am Chronic pain chronic September 07, 2024 9:30am HTN (hypertension) chronic September 07, 2024 9:30am [facility] Work Phone: 1(772) 996-791103-05-2025 Evaluation note* Diagnosis Onset Date Resolution Status Admit Date Abscess of back acute July 8:42am Chronic anticoagulation acute A pril 2024 9:30am Colostomy status acute September 072024 9:30am Decubitus ulcer of left trish [place] ischial region, stage 2 acute September 072024 9:30am Decubitus ulcer of right isc hium, stage 3 acute September 07, 2024 9:30am Decubitus ulcer of sacral re gion, stage 4 acute September 07, 2024 9:30am History of deep vein thrombosis acut e September 07, 2024 9:30am History of paraplegia acute Aug 9:30am Hx of spinal surgery acute Apr2024 9:30am Hypoxia acute September 07 9:30am Lymphedema acute September 07 9:30am BATOOL treated with BiPAP acute Ap ril 2024 9:30am Type 2 diabetes mellitus acute September 07, 2024 9:30am Chronic indwelling Bartlett catheter ch ronic September 07, 2024 9:30am Chronic pain chronic September 07, 2024 9:30am HTN (hypertension) chronic September 07, 2024 9:30am Chronic anticoagulation acute M ay 2024 9:00am Colostomy status acute September 21, 2024 9:00am Decubitus ulcer of left trish [place] ischial region, stage 2 acute September 21, 2024 9:00am Decubitus ulcer of right isc hium, stage 3 acute September 21, 2024 9: 00am Decubitus ulcer of sacral re gion, stage 4 acute September 21, 2024 9: 00am History of deep vein thrombosis acut e September 21, 2024 9:00am History of paraplegia acute September 21, 2024 9:00am Hx of spinal surgery acute September 21, 2024 9:00am Hypoxia acute September 21, 2024 9:00am Lymphedema acute September 21, 2024 9:00am BATOOL treated with BiPAP acute Ma y 2024 9:00am Type 2 diabetes mellitus acute September 21, 2024 9:00am Chronic indwelling Bartlett catheter ch ronic September 21, 2024 9:00am Chronic pain chronic September 21 9:00am HTN (hypertension) chronic September 9:00am [facility] Work Phone: 1(994) 340-693803-05-2025 Evaluation note* Diagnosis Onset Date Resolution Status Admit Date Abscess of back acute July 8:42am Chronic anticoagulation acute A pril 2024 9:30am Colostomy status acute September 072024 9:30am Decubitus ulcer of left trish [place] ischial region, stage 2 acute September 072024 9:30am Decubitus ulcer of right isc hium, stage 3 acute September 07, 2024 9:30am Decubitus ulcer of sacral re gion, stage 4 acute September 07, 2024 9:30am History of deep vein thrombosis acut e September 07, 2024 9:30am History of paraplegia acute Aug 9:30am Hx of spinal surgery acute Apr2024 9:30am Hypoxia acute September 07 9:30am Lymphedema acute September 07 9:30am BATOOL treated with BiPAP acute Ap ril 2024 9:30am Type 2 diabetes mellitus acute September 07, 2024 9:30am Chronic indwelling Bartlett catheter ch ronic September 07, 2024 9:30am Chronic pain chronic September 07, 2024 9:30am HTN (hypertension) chronic September 07, 2024 9:30am Acute hypoxic respiratory failure ac [place] October 12, 2024 8:43am Chronic anticoagulation acute M ay 2024 9:00am Colostomy status acute September 9:00am Decubitus ulcer of left trish syd[place] ischial region, stage 2 acute September 9:00am Decubitus ulcer of right isc hium, stage 3 acute October 12, 2024 9 :00am Decubitus ulcer of sacral re gion, stage 4 acute October 12, 2024 9 :00am History of deep vein thrombosis acut e October 12, 2024 9:00am History of paraplegia acute October 12, 2024 9:00am Hx of spinal surgery acute October 12, 2024 9:00am Hypoxia acute October 12, 2024 9:00am Lymphedema acute October 12, 2024 9:00am BATOOL treated with BiPAP acute Ma y 2024 9:00am Type 2 diabetes mellitus acute October 12, 2024 9:00am Chronic indwelling Bartlett catheter ch ronic October 12, 2024 9:00am Chronic pain chronic October 12 9:00am HTN (hypertension) chronic October 122024 9:00am [facility] Work Phone: 1(300) 514-637803-05-2025 Evaluation note* Diagnosis Onset Date Resolution Status Admit Date Abscess of back acute July 8:42am Chronic anticoagulation acute A pril 2024 9:30am Colostomy status acute September 072024 9:30am Decubitus ulcer of left rtish syd[place] ischial region, stage 2 acute September 072024 9:30am Decubitus ulcer of right isc hium, stage 3 acute September 07, 2024 9:30am Decubitus ulcer of sacral re gion, stage 4 acute September 07, 2024 9:30am History of deep vein thrombosis acut e September 07, 2024 9:30am History of paraplegia acute Aug 9:30am Hx of spinal surgery acute Apri l 2024 9:30am Hypoxia acute September 07 9:30am Lymphedema acute September 07 9:30am BATOOL treated with BiPAP acute Ap ril 2024 9:30am Type 2 diabetes mellitus acute September 07, 2024 9:30am Chronic indwelling Bartlett catheter ch ronic September 07, 2024 9:30am Chronic pain chronic September 07, 2024 9:30am HTN (hypertension) chronic September 07, 2024 9:30am Chronic anticoagulation acute M ay 2024 9:00am Colostomy status acute September 9:00am Decubitus ulcer of left trish syd[place] ischial region, stage 2 acute September 9:00am Decubitus ulcer of right isc hium, stage 3 acute September 28, 2024 9 :00am Decubitus ulcer of sacral re gion, stage 4 acute September 28, 2024 9 :00am History of deep vein thrombosis acut e September 28, 2024 9:00am History of paraplegia acute September 28, 2024 9:00am Hx of spinal surgery acute September 28, 2024 9:00am Hypoxia acute September 28, 2024 9:00am Lymphedema acute September 28, 2024 9:00am BATOOL treated with BiPAP acute Ma y 2024 9:00am Type 2 diabetes mellitus acute September 28, 2024 9:00am Chronic indwelling Bartlett catheter ch ronic September 28, 2024 9:00am Chronic pain chronic September 28 9:00am HTN (hypertension) chronic September 282024 9:00am Acute hypoxic respiratory failure ac [place] October 12, 2024 8:43am Hypoxia acute October 12, 2024 8:43am Pneumonia acute October 12, 2024 8:43am [facility] Work Phone: 1(988) 463-907803-05-2025 Evaluation note* Diagnosis Onset Date Resolution Status Admit Date Abscess of back acute July 8:42am Chronic anticoagulation acute A pril 2024 9:30am Colostomy status acute September 072024 9:30am Decubitus ulcer of left trish [place] ischial region, stage 2 acute September 072024 9:30am Decubitus ulcer of right ischium, stage 3 acute September 07 9:30am Decubitus ulcer of sacral region, stage 4 acute September 07, 2024 9:30am History of deep vein thrombosis acut e September 07, 2024 9:30am History of paraplegia acute Aug 9:30am Hx of spinal surgery acute Apri l 2024 9:30am Lymphedema acute September 07 9:30am BATOOL treated with BiPAP acute Ap ril 2024 9:30am Type 2 diabetes mellitus acute September 07, 2024 9:30am Chronic indwelling Bartlett catheter chronic September 07, 2024 9:30am Chronic pain chronic September 07, 2024 9:30am HTN (hypertension) chronic September 07, 2024 9:30am Hypoxia resolved September 07 9:30am Chronic anticoagulation acute M ay 2024 9:00am Colostomy status acute September 9:00am Decubitus ulcer of left trish syd[place] ischial region, stage 2 acute September 9:00am Decubitus ulcer of right ischium, stage 3 acute September 28, 2024 9:00am Decubitus ulcer of sacral region, stage 4 acute September 28, 2024 9 :00am History of deep vein thrombosis acut e September 28, 2024 9:00am History of paraplegia acute September 28, 2024 9:00am Hx of spinal surgery acute September 28, 2024 9:00am Lymphedema acute September 28, 2024 9:00am BATOOL treated with BiPAP acute Ma y 2024 9:00am Type 2 diabetes mellitus acute September 28, 2024 9:00am Chronic indwelling Bartlett catheter chronic September 28, 2024 9 :00am Chronic pain chronic September 28 9:00am HTN (hypertension) chronic September 282024 9:00am Hypoxia resolved September 28, 2024 9:00am Acute hypoxic respiratory failure resolved October 12, 2024 8 :43am Hypoxia resolved October 12, 2024 8:43am Pneumonia resolved October 12, 2024 8:43am Chronic anticoagulation acute J une 2024 9:00am Colostomy status acute October 9:00am Decubitus ulcer of left trish syd[place] ischial region, stage 2 acute October 9:00am Decubitus ulcer of right ischium, stage 3 acute October 26, 2024 9:00am Decubitus ulcer of sacral region, stage 4 acute October 26, 2024 9:00am History of deep vein thrombosis acut e October 26, 2024 9:00am History of paraplegia acute Oct 9:00am Hx of spinal surgery acute October 26, 2024 9:00am Lymphedema acute October 26 9:00am BATOOL treated with BiPAP acute Ju 2024 9:00am Type 2 diabetes mellitus acute October 26, 2024 9:00am Chronic indwelling Bartlett catheter chronic October 26, 2024 9:00am Chronic pain chronic October 26, 2 025 9:00am HTN (hypertension) chronic October 142024 9:00am Hypoxia resolved October 26 9:00am [facility] Work Phone: 1(164) 705-738503-05-2025 Evaluation note* Diagnosis Onset Date Resolution Status Admit Date Abscess of back acute July 8:42am Chronic anticoagulation acute A pril 2024 9:30am Colostomy status acute September 072024 9:30am Decubitus ulcer of left trish [place] ischial region, stage 2 acute September 072024 9:30am Decubitus ulcer of right ischium, stage 3 acute September 07 9:30am Decubitus ulcer of sacral region, stage 4 acute September 07, 2024 9:30am History of deep vein thrombosis acut e September 07, 2024 9:30am History of paraplegia acute Apr il 2024 9:30am Hx of spinal surgery acute Apri l 2024 9:30am Lymphedema acute September 07 9:30am BATOOL treated with BiPAP acute Ap ril 2024 9:30am Type 2 diabetes mellitus acute September 07, 2024 9:30am Chronic indwelling Bartlett catheter chronic September 07, 2024 9:30am Chronic pain chronic September 07, 2024 9:30am HTN (hypertension) chronic September 07, 2024 9:30am Hypoxia resolved September 07 9:30am Chronic anticoagulation acute M ay 2024 9:00am Colostomy status acute September 9:00am Decubitus ulcer of left trish syd[place] ischial region, stage 2 acute September 9:00am Decubitus ulcer of right ischium, stage 3 acute September 28, 2024 9:00am Decubitus ulcer of sacral region, stage 4 acute September 28, 2024 9 :00am History of deep vein thrombosis acut e September 28, 2024 9:00am History of paraplegia acute September 28, 2024 9:00am Hx of spinal surgery acute September 28, 2024 9:00am Lymphedema acute September 28, 2024 9:00am BATOOL treated with BiPAP acute Ma y 2025 9:00am Type 2 diabetes mellitus acute September 28, 2024 9:00am Chronic indwelling Bartlett catheter chronic September 28, 2024 9 :00am Chronic pain chronic September 28 9:00am HTN (hypertension) chronic September 282024 9:00am Hypoxia resolved September 28, 2024 9:00am Acute hypoxic respiratory failure resolved October 12, 2024 8 :43am Hypoxia resolved October 12, 2024 8:43am Pneumonia resolved October 12, 2024 8:43am Chronic anticoagulation acute J une 2024 9:00am Colostomy status acute October 9:00am Decubitus ulcer of left trish [place] ischial region, stage 2 acute October 9:00am Decubitus ulcer of right ischium, stage 3 acute October 26, 2024 9:00am Decubitus ulcer of sacral region, stage 4 acute October 26, 2024 9:00am History of deep vein thrombosis acut e October 26, 2024 9:00am History of paraplegia acute [place] 2024 9:00am Hx of spinal surgery acute October 26, 2024 9:00am Lymphedema acute October 26 9:00am BATOOL treated with BiPAP acute Ju 2024 9:00am Type 2 diabetes mellitus acute October 26, 2024 9:00am Chronic indwelling Bartlett catheter chronic October 26, 2024 9:00am Chronic pain chronic October 26, 025 9:00am HTN (hypertension) chronic October 142024 9:00am Hypoxia resolved October 26 9:00am Pneumonia acute October 29 2:30pm Acute and chronic respirator y failure with hypoxia chronic October 29, 2024 2:30pm Acute on chronic respiratory failure with hypoxia and hypercapnia chronic October 29, 2024 2:30pm [facility] Work Phone: 1([phone]) 893-348703-05-2025 Evaluation note* Diagnosis Onset Date Resolution Status Admit Date Abscess of back acute July 8:42am Chronic anticoagulation acute A pril 2024 9:30am Colostomy status acute September 072024 9:30am Decubitus ulcer of left trish [place] ischial region, stage 2 acute September 072024 9:30am Decubitus ulcer of right ischium, stage 3 acute September 07 9:30am Decubitus ulcer of sacral region, stage 4 acute September 07, 2024 9:30am History of deep vein thrombosis acut e September 07, 2024 9:30am History of paraplegia acute Apr il 2024 9:30am Hx of spinal surgery acute Apri l 2024 9:30am Lymphedema acute September 07 9:30am BATOOL treated with BiPAP acute Ap ril 2024 9:30am Type 2 diabetes mellitus acute September 07, 2024 9:30am Chronic indwelling Bartlett catheter chronic September 07, 2024 9:30am Chronic pain chronic September 07, 2024 9:30am HTN (hypertension) chronic September 07, 2024 9:30am Hypoxia resolved September 07 9:30am Chronic anticoagulation acute M ay 2024 9:00am Colostomy status acute September 9:00am Decubitus ulcer of left trish [place] ischial region, stage 2 acute September 9:00am Decubitus ulcer of right ischium, stage 3 acute September 28, 2024 9:00am Decubitus ulcer of sacral region, stage 4 acute September 28, 2024 9 :00am History of deep vein thrombosis acut e September 28, 2024 9:00am History of paraplegia acute September 28, 2024 9:00am Hx of spinal surgery acute September 28, 2024 9:00am Lymphedema acute September 28, 2024 9:00am BATOOL treated with BiPAP acute Ma y 2024 9:00am Type 2 diabetes mellitus acute September 28, 2024 9:00am Chronic indwelling Bartlett catheter chronic September 28, 2024 9 :00am Chronic pain chronic September 28 9:00am HTN (hypertension) chronic September 282024 9:00am Hypoxia resolved September 28, 2024 9:00am Acute hypoxic respiratory failure resolved October 12, 2024 8 :43am Hypoxia resolved October 12, 2024 8:43am Pneumonia resolved October 12, 2024 8:43am Pneumonia acute October 29 2:30pm Acute and chronic respirator y failure with hypoxia chronic October 29, 2024 2:30pm Acute on chronic respiratory failure with hypoxia and hypercapnia deleted October 29, 2024 2:30pm Chronic anticoagulation acute J une 2024 9:00am Colostomy status acute October 9:00am Decubitus ulcer of left trish syd[place] ischial region, stage 2 acute October 9:00am Decubitus ulcer of right ischium, stage 3 acute November 09, 2024 9:00am Decubitus ulcer of sacral region, stage 4 acute November 09, 2024 9:00am History of deep vein thrombosis acut e November 09, 2024 9:00am History of paraplegia acute [place] 2024 9:00am Hx of spinal surgery acute November 09, 2024 9:00am Lymphedema acute November 09 9:00am BATOOL treated with BiPAP acute Ju 2024 9:00am Type 2 diabetes mellitus acute November 09, 2024 9:00am Chronic indwelling Bartlett catheter chronic November 09, 2024 9:00am Chronic pain chronic November 09, 025 9:00am HTN (hypertension) chronic October 152024 9:00am Hypoxia resolved November 09 9:00am [facility] Work Phone: 1(220) 930-709002-13-2025 NoteCase# Procedure: RECONSTRUCTION OF SACRAL DECUBITUS ULCER WITH GLUTEAL ARTERY MYOCUTANEOUS FLAP VERSUS LUMBAR ARTERY QUALITY CONTROL MICROBIOLOGIST FLAP Sx Date: 07/30/2024 Time: 3 HOURS Location: [facility] Anesthesia: GENERAL CPT: 66443, 42435, 92235, 00785 ICD-10: L89.154 Special Equipment: PAT: Submitted auth thru insurance portal, awaiting determination. CONTACT HAMZAH AT [phone] TO COORDINATE PATIENT'S TRANSPORTATION SPOKE WITH PATIENT, HE WISHES TO PUT OFF SURGERY FOR NOW, WILL CALL WHEN READY TO [facility]02-13-2025 Telephone encounter Note* Telephone Encounter - Angela Ferguson - 06/28/2024 10:07 AM EST Case# Procedure: RECONSTRUCTION OF SACRAL DECUBITUS ULCER WITH GLUTEAL ARTERY MYOCUTANEOUS FLAP VERSUS LUMBAR ARTERY QUALITY CONTROL MICROBIOLOGIST FLAP Sx Date: 07/30/2024 Time: 3 HOURS Location: [facility] Anesthesia: GENERAL CPT: 58113, 10421, 28801, 11139 ICD-10: L89.154 Special Equipment: PAT: Submitted auth thru insurance portal, awaiting determination. CONTACT HAMZAH AT [phone] TO COORDINATE PATIENT'S TRANSPORTATION SPOKE WITH PATIENT, HE WISHES TO PUT OFF SURGERY FOR NOW, WILL CALL WHEN READY TO SCHEDULE [facility] [id number] Telephone encounter Note* Telephone Encounter - Panda Connor RN - 06/18/2024 12:54 PM EST I called and spoke with Jessica in regards to coordination of care for the patient. I discussed with Jessica what Said stated His wound seems to be healing well. I would recommend to continue wound care at this point. There is no tissue around the area to reconstruct the defect. He has better chance of healing by secondary intention at this point. Thank you. Lenard Ling MD.We confirmed that there are no ongoing appointments scheduled for the patient with since hewould like the patient to continue care and management with wound care. I discussed routing this information over to DILSHAD Vargas that handles wound care for patient. SABINE Vargas CNP [facility] Op Wnd Ostomy Hbo Panda Connor RN [facility] [id number] Miscellaneous Notes* Telephone Encounter - Panda Toledo RN - 06/18/2024 12:54 PM EST I called and spoke with Jessica in regards to coordination of care for the patient. I discussed with Jessica what stated His wound seems to be healing well. I would recommend to continue wound care at this point. There is no tissue around the area to reconstruct the defect. He has better chance of healing by secondary intention at this point. Thank you. Lenard Ling MD.We confirmed that there are no ongoing appointments scheduled for the patient with since hewould like the patient to continue care and management with wound care. I discussed routing this information over to DILSHAD Vargas that handles wound care for patient. SABINE Vargas CNP [facility] Op Wnd Ostomy Hbo Panda Connor RN * Telephone Encounter - Panda Connor RN - 06/15/2024 1:09 PM EST I attempted to return call to Jessica that called on the patients behalf inquiring about an appointment for the patient with our office or scheduling for surgery. There was no answer and I left a detailed message providing call back # [phone]. * Telephone Encounter - Panda Connor RN - 06/15/2024 1:01 PM EST I attempted to contact Hamzah as requested in regards to next steps for patient and coordination of care in the case the patient would be scheduled for an appointment or surgery. Per His wound seems to be healing well. I would recommend to continue wound care at this point. There is no tissue around the area to reconstruct the defect. He has better of healing by secondary intention at this point. Thank you. Lenard Ling MD. I attempted to call to relay this information, there was no answer and I left a detailed message providing a call back # [phone]. * Telephone Encounter - Panda Connor RN - 06/15/2024 12:55 PM EST I attempted to return call to [facility] that called on the patients behalf inquiring about an appointment for the patient with our office or scheduling for surgery. There was no answer and I was unable to leave a message due to mailbox being full. Will attempt to contact again. documented in this [facility]01-31-2025 Telephone encounter Note* Telephone Encounter - Panda Connor RN - 06/15/2024 1:09 PM EST I attempted to return call to [facility] that called on the patients behalf inquiring about an appointment for the patient with our office or scheduling for surgery. There was no answer and I left a detailed message providing call back # [phone]. [facility] [id number] Miscellaneous Notes* Telephone Encounter - Panda Toledo RN - 06/15/2024 1:09 PM EST I attempted to return call to [facility] that called on the patients behalf inquiring about an appointment for the patient with our office or scheduling for surgery. There was no answer and I left a detailed message providing call back # [phone]. * Telephone Encounter - Panda Connor RN - 06/15/2024 1:01 PM EST I attempted to contact Hamzah as requested in regards to next steps for patient and coordination of care in the case the patient would be scheduled for an appointment or surgery. Per Dr.Said His wound seems to be healing well. I would recommend to continue wound care at this point. There is no tissue around the area to reconstruct the defect. He has better of healing by secondary intention at this point. Thank you. Lenard Ling MD. I attempted to call to relay this information, there was no answer and I left a detailed message providing a call back # [phone]. * Telephone Encounter - Panda Connor RN - 06/15/2024 12:55 PM EST I attempted to return call to Jessica that called on the patients behalf inquiring about an appointment for the patient with our office or scheduling for surgery. There was no answer and I was unable to leave a message due to mailbox being full. Will attempt to contact again. documented in this [facility]SD[facility] [id number] Telephone encounter Note* Telephone Encounter - Panda Connor RN - 06/15/2024 1:01 PM EST I attempted to contact Hamzah as requested in regards to next steps for patient and coordination of care in the case the patient would be scheduled for an appointment or surgery. Per Said His wound seems to be healing well. I would recommend to continue wound care at this point. There is no tissue around the area to reconstruct the defect. He has better of healing by secondary intention at this point. Thank you. Lenard Ling MD. I attempted to call to relay this information, there was no answer and I left a detailed message providing a call back # [phone]. [facility] [id number] Telephone encounter Note* Telephone Encounter - Panda Connor RN - 06/15/2024 12:55 PM EST I attempted to return call to Jessica that called on the patients behalf inquiring about an appointment for the patient with our office or scheduling for surgery. There was no answer and I was unable to leave a message due to mailbox being full. Will attempt to contact again. [facility] [id number] Telephone encounter Note* Telephone Encounter - Arnie Andino - 06/14/2024 2:39 PM EST Spoke with nurse named Jessica at [phone] regarding this patients photos that were recentlysent of patients wound. When scheduling patients surgery please call Hamzah at [phone] as sheis the one that will schedule this patients transportation as well. [facility] [id number] Miscellaneous Notes* [facility] 06/14/2024 2:39 PM EST Spoke with nurse named Jessica at [phone] regarding this patients photos that were recentlysent of patients wound. When scheduling patients surgery please call Hamzah at [phone] as sheis the one that will schedule this patients transportation as well. documented in this [facility]01-15-2025 History of Present illness Narrative* Lenard Ling MD - 05/30/2024 11:45 AM EST Patient was identified and seen today via Telehealth by agreement and consent. I used the followingTelehealth technology: Audio capability only. Total length of call 15 minutes. The patient was offered and advised video for a more comprehensive evaluation, but the patient declined or was unable touse video. Patient location: Patient Location: Home. This patient encounter is appropriate and reasonable under the circumstances: transportation issues and being paraplegic it is very inconvenient for him to come to the office to discuss imaging results . The patient has been advised of the potential risks and limitations of this mode of treatment (including but not limited to the absence of in-person examination) and has agreed to be treated in a remote fashion in spite of them. Any and all of the patient's/patient's family's questions on this issue have been answered and I have made no promises or guarantees to the patient. The patient has also been advised to contact this office for worsening conditions or problems, and seek emergency medical treatment and/or call 911 if the patient deems either necessary. The patient stated that they are currently in the [facility]. Patient was seen and evaluated back in February 2024 for a large sacral decubitus ulcer. MRI was ordered. Patient had the MRI performed on 05/11/2024 which revealed IMPRESSION: Extensive, granulation filled soft tissue ulceration along the posterior aspect of the sacrum and coccyx, with surrounding subcutaneous soft tissue and muscle edema. The ulceration extends deep to the sacrococcygeal cortex. Although somewhat limited by the susceptibility artifact, there is no evidence of definite bone marrow replacement to suggest osteomyelitis. Today we discussed proceeding with surgical treatment in the form of a large rotational gluteal artery sales driver flap versus 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 We discussed risk and benefits including but not limited to infection, bleeding, seroma and hematoma formation as well as inherent issues withflaps in the form of partial or complete necrosis. We discussed the need for absolute pressure offloading for 6 weeks after the surgery including air mattress bed, frequent turning, adequate nutrition. Recommended that the patient take a picture of the decubitus ulcer uploaded on the chart to be evaluated clinically. Will put surgery orders today. Reason for Consult: Large sacral decubitus ulcer most likely stage IV Requesting Physician: Patient referred by his facility CHIEF COMPLAINT: Stage IV sacral decubitus History Obtained From: patient HISTORY OF PRESENT ILLNESS: The patient is a 58 y.o. male who presents with significant history of traumatic fall from a chair early 2022. Patient reports that following the fall he sustained a spinal fracture at the prior surgical site with direct compression of the spinal cord. Since then patient has been paraplegic. He reports developing a sacral decubitus ulcer in February 2023. This has been managed at the facility where the patient stays with wet-to-dry dressing. Patient reports that prior to the traumatic event he was able to walk normally sometimes assisted with a cane for long distance walk. He also endorses significant history of pulmonary embolism since his traumatic incident. He is currently on therapeutic Eliquis, 5 mg every 12 hours. He denies any chest pain. Patient is a former smoker. He quit smoking back in 2003. He reports that his last weight in the facility was yesterday and it was recorded at 293 pounds. Past Medical History: Medical History Past Medical History: Diagnosis Date Acute posthemorrhagic anemia Acute respiratory failure with hypoxia ([facility]) Cellulitis of left lower limb Cellulitis of right lower limb Cellulitis of right lower limb Chronic diastolic (congestive) heart failure ([facility]) Chronic pain syndrome Colostomy status ([facility]) ([facility]) Constipation Difficulty in walking, not elsewhere classified Dry eye syndrome of bilateral lacrimal glands Essential (primary) hypertension Gastroesophageal reflux disease without esophagitis Insomnia, unspecified Iron deficiency anemia, unspecified Low back pain, unspecified Morbid (severe) obesity due to excess calories ([facility]) Muscle weakness (generalized) Nasal congestion Nausea Need for assistance with personal care Neuromuscular dysfunction of bladder, unspecified Obstructive sleep apnea (adult) (pediatric) Other disorders of plasma-protein metabolism, not elsewhere classified Other mechanical complication of other urinary catheter, initial encounter ([facility]) Other muscle spasm Paraplegia, unspecified ([facility]) Peripheral vascular disease, unspecified ([facility]) Personal history of other diseases of urinary system Personal history of venous thrombosis and embolism Pleural effusion in other conditions classified elsewhere Pneumonia, bacterial Pressure ulcer of right buttock, stage 3 ([facility]) Pressure ulcer of sacral region, stage 4 ([facility]) Pressure ulcer, buttock, right, unstageable ([facility]) Retention of urine, unspecified Spinal stenosis, lumbar region, without neurogenic claudication Type 2 diabetes mellitus with polyneuropathy ([facility]) Unspecified bacterial pneumonia Unspecified infectious disease Unspecified protein-calorie malnutrition ([facility]) Past Surgical History: Surgical History Past Surgical History: Procedure Laterality Date BACK SURGERY 08/2005 lumbar BACK SURGERY 2017 lumbar revision BACK SURGERY 12/2020 Lumbar and t REPLACEMENT TOTAL HIP LATERAL POSITION Right 08/2020 Current Medications: Current Outpatient Medications Medication Instructions amLODIPine (NORVASC) 10 mg, Oral, Daily apixaban (ELIQUIS) 5 mg, Oral, 2 times daily carboxymethylcellulose PF (Refresh Plus) 0.5 % ophthalmic solution 1 drop, Both Eyes, 2 times dailyPRN carvedilol (COREG) 12.5 mg, Oral, 2 times daily with meals cetirizine (ZYRTEC) 10 mg, Oral, Daily diphenhydrAMINE (BENADRYL) 25 mg, Oral, Every 8 hours PRN ertapenem 1,000 mg in sodium chloride 0.9 % 50 mL IVPB 1,000 mg, IntraVENous, Every 24 hours gabapentin (NEURONTIN) 100 mg, Oral, 2 times daily guaiFENesin ER 1,200 mg, Oral, 2 times daily, Do not crush, chew, or split. insulin glargine (LANTUS) 24 Units, SubCUTAneous, Every morning melatonin 6 mg, Oral, Nightly Methocarbamol 1,000 mg, Oral, Every 8 hours PRN naloxone (NARCAN) 0.4 mg, IntraVENous, Every 5 min PRN pantoprazole (PROTONIX) 40 mg, Oral, Daily before breakfast, Do not crush, chew, or split. polyethylene glycol (PEG) 3350 (MIRALAX) 17 g, Oral, Daily PRN senna-docusate sodium (Senokot-S) 8.6-50 MG tablet 2 tablets, Oral, Nightly Allergies: Patient has no known allergies. Social History: Social History Socioeconomic History Marital status: Single Spouse name: Not on file Number of children: Not on file Years of education: Not on file Highest education level: Not on file Occupational History Not on file Tobacco Use Smoking status: Not on file Smokeless tobacco: Not on file Substance and Sexual Activity Alcohol use: Not on file Drug use: Not on file Sexual activity: Not on file Other Topics Concern Not on file Social History Narrative Not on file Social Determinants of Health Financial Resource Strain: Low Risk (02/08/2023) Received from [facility] Overall Financial Resource Strain (CARDIA) Difficulty of Paying Living Expenses: Not hard at all Food Insecurity: No Food Insecurity (02/08/2023) Received from [facility] Hunger Vital Sign Worried About Running Out of Food in the Last Year: Never true Ran Out of Food in the Last Year: Never true Transportation Needs: No Transportation Needs (02/08/2023) Received from [facility] PRAPARE - Transportation Lack of Transportation (Medical): No Lack of Transportation (Non-Medical): No Physical Activity: Not on file Stress: Not on file Social Connections: Not on file Intimate Partner Violence: Not At Risk (10/28/2023) Humiliation, Afraid, Rape, and Kick questionnaire Fear of Current or Ex-Partner: No Emotionally Abused: No Physically Abused: No Sexually Abused: No Housing Stability: Low Risk (02/08/2023) [facility] Housing Stability Vital Sign Unable to Pay for Housing in the Last Year: No Number of Places Lived in the Last Year: 1 Unstable Housing in the Last Year: No Family History: Family History No family history on file. REVIEW OF SYSTEMS: CONSTITUTIONAL: negative for fevers, chills, sweats and fatigue EYES: negative for dipolpia or acute vision loss. RESPIRATORY: negative for dry cough, cough with sputum, dyspnea, wheezing and chest pain CARDIOVASCULAR: negative for chest pain, dyspnea, palpitations, syncope GASTROINTESTINAL: negative for nausea, vomiting, change in bowel habits, diarrhea, constipation andabdominal pain EXTREMITIES: negative for edema MUSCULOSKELETAL: Paraplegic SKIN: negative for itching or rashes. BEHAVIOR/PSYCH: negative for poor appetite, increased appetite, decreased sleep and poor concentration PHYSICAL EXAM: VITALS: Wt 293 lb (133 kg) BMI 45.89 kg/m CONSTITUTIONAL: awake, alert, cooperative, no apparent distress, and appears stated age EYES: PERRLA, EOMI, no signs of occular infection LUNGS: No increased work of breathing, good air exchange, clear to auscultation bilaterally, no crackles or wheezing CARDIOVASCULAR: Normal apical impulse, regular rate and rhythm, normal S1 and S2, no S3 or S4, and no murmur noted ABDOMEN: Soft, distended yet not tender. Examination of the buttock area reveals a large and extensive sacral decubitus ulcer with exposed sacral bone covered with healthy granulation tissue. The surrounding skin is severely macerated. The area of the sacral decubitus measures at least 17 x 20 cm. Extends from the mid sacral bone to the anal verge. Patient has a diverting colostomy bag on the left hemiabdomen as well as a suprapubic cystostomy catheter. He also has a well-healed incision for hip arthroplasty on the right side. Patient denies any surgery on the left side. EXTREMITIES: no signs of clubbing or cyanosis. MUSCULOSKELETAL: negative for flaccid muscle tone or spastic movements. SKIN: gross examination reveals no signs of rashes, or diaphoresis. NEURO: Cranial nerves II-XII grossly intact. No signs of agitated mood. CBC: Lab Results Component Value Date WBC 8.7 11/04/2023 RBC 3.55 (L) 11/04/2023 HGB 7.3 (L) 11/04/2023 HCT 26.8 (L) 11/04/2023 MCV 75.5 (L) 11/04/2023 MCH 20.6 (L) 11/04/2023 MCHC 27.2 (L) 11/04/2023 RDW 19.6 (H) 11/04/2023 PLT 420 11/04/2023 MPV 9.2 11/04/2023 BMP: Lab Results Component Value Date NA 136 11/04/2023 K 4.1 11/04/2023 CL 101 11/04/2023 CO2 31 (H) 11/04/2023 BUN 13 11/04/2023 CREATININE 0.50 (L) 11/04/2023 CALCIUM 8.4 11/04/2023 GLUCOSE 135 (H) 11/04/2023 Hepatic Function Panel: Lab Results Component Value Date ALKPHOS 92 11/04/2023 ALT 16 11/04/2023 AST 23 11/04/2023 PROT 6.6 11/04/2023 BILITOT 0.3 11/04/2023 Data- Radiology Review: Other than chest x-rays in the system there is no imaging to refer to IMPRESSION/RECOMMENDATIONS: Diagnosis: 1-stage IV sacral decubitus, extensive 2-morbid obesity 3-paraplegia The Patients EMR report has been reviewed We will plan to order MRI with contrast to rule out underlying osteomyelitis. If patient has osteomyelitis will consult ID for antibiotic treatment. Patient needs adequate nutritional support with a balanced and regulated diet to help with weight loss and hands pressure offload Strengthening exercises of the upper extremities Air mattress bed as well as pressure offload every to 2 hours. Roho cushion for any amount of time that the patient is going to set to augment with pressure offload. Nutritional supplementation with high protein intake. Patient's last albumin was 3.1 back in October 2023. For proper healing his albumin needs to exceed at least 3.5 g/dL With optimization of patient's care, pressure offloading and nutritional support as well as strengthening exercise, spontaneous healing with at least shrink the size of the open wound and allow for surgical coverage in the future. I anticipate needing to use the left tensor fascia alesia flap to cover the defect. Donor site will not be closed primarily and will require extensive skin grafting. Without maintaining adequate nutritional support and pressure offloading, recurrence is extremely high. Risks or complications including but not limited to high possibility of recurrence, seroma and hematoma formation, infection and osteomyelitis. Follow Up In 1 month. Photos were obtained Please disregard any typographical errors. This note was partially dictated using voice recognitionsoftware. documented in this encounterSDayton VA Medical [id number] Telephone encounter Note* Telephone Encounter - Panda Connor RN - 04/23/2024 3:02 PM EST Carmen (INTERMEDIATE nurse) was returning my call in regards to the voicemail I previously left pertaining to the information I received in regards to the MRI and sedation not being provided. I notified Carmen that I called [facility] and inquired about MRI and sedation and I was told from a marketing technology specialist that they do not sedate patient's for MRI's and if the patient required sedation that the patient would need to be sedated within his facility prior to arriving for his MRI, which would be thesame protocol at our [facility]. Carmen stated she will discuss options with patient and fornow keep the scheduled MRI appointment and follow-up with our office in regards to if the patient will agree to the MRI being done without sedation or not be agreeable. [facility] [id number] Miscellaneous Notes* Telephone Encounter - Panda Toledo RN - 04/23/2024 3:02 PM EST Carmen (INTERMEDIATE nurse) was returning my call in regards to the voicemail I previously left pertaining to the information I received in regards to the MRI and sedation not being provided. I notified Carmen that I called [facility] and inquired about MRI and sedation and I was told from a marketing technology specialist that they do not sedate patient's for MRI's and if the patient required sedation that the patient would need to be sedated within his facility prior to arriving for his MRI, which would be thesame protocol at our [facility] facilities. Carmen stated she will discuss options with patient and fornow keep the scheduled MRI appointment and follow-up with our office in regards to if the patient will agree to the MRI being done without sedation or not be agreeable. * Telephone Encounter - Panda Connor RN - 04/23/2024 10:38 AM EST Called Carmen (IRA nurse) in regards to MRI and further information I have obtained in regards to the MRI after calling [facility] they stated they do not sedate patient's there for MRI's to be done and was just calling Carmen back to inform her of that information, no answer but LVM for Carmen to call back to discuss further. * Telephone Encounter - Panda Connor RN - 04/23/2024 8:49 AM EST Called Carmen (IRA nurse) in regards to MRI order and discussed with her that Kayli Felder PA-C would prescribe Xanax for the patient to take for the MRI. Carmen stated she called [facility] and they would accommodate for the patient to be sedated for an MRI. I discussed with her the options that I was aware of and told her that they should contact patient's insurance to see if they would cover the MRI and call back to let us know the outcome and I would discuss it further with . * Telephone Encounter - Panda Connor RN - 04/20/2024 4:08 PM EST Called Carmen (IRA nurse) in regards to MRI order after speaking with , LVM for Carmen to call office back in regards to patients MRI. * Telephone Encounter - Barbara Monsivais - 04/20/2024 3:19 PM EST Carmen (INTERMEDIATE nurse) called in because Melissa is claustrophobic and Dr Ling ordered an MRI for him. Carmen was inquiring if he can go to [facility] and be sedated for MRI. Please call Carmen back/ will need to fax new order to [facility] as well. documented in this encounterSDayton VA Medical [id number] Telephone encounter Note* Telephone Encounter - Panda Connor RN - 04/23/2024 10:38 AM EST Called Carmen (IRA nurse) in regards to MRI and further information I have obtained in regards to the MRI after calling [facility] they stated they do not sedate patient's there for MRI's to be done and was just calling Carmen back to inform her of that information, no answer but LVM for Carmen to call back to discuss further. [facility] [id number] Telephone encounter Note* Telephone Encounter - Panda Connor RN - 04/23/2024 8:49 AM EST Called Carmen (IRA nurse) in regards to MRI order and discussed with her that Kayli Felder PA-C would prescribe Xanax for the patient to take for the MRI. Carmen stated she called [facility] and they would accommodate for the patient to be sedated for an MRI. I discussed with her the options that I was aware of and told her that they should contact patient's insurance to see if they would cover the MRI and call back to let us know the outcome and I would discuss it further with . [facility] [id number] Telephone encounter Note* Telephone Encounter - Panda Connor RN - 04/20/2024 4:08 PM EST Called Carmen (IRA nurse) in regards to MRI order after speaking with NICHOLAS Tolbert for Carmen to call office back in regards to patients MRI. [facility] [id number] Miscellaneous Notes* Telephone Encounter - Panda Toledo RN - 04/20/2024 4:08 PM EST Called Carmen (IRA nurse) in regards to MRI order after speaking with NICHOLAS Tolbert for Carmen to call office back in regards to patients MRI. * Telephone Encounter - Barbara Monsivais - 04/20/2024 3:19 PM EST Carmen (IRA nurse) called in because Melissa is claustrophobic and Dr Ling ordered an MRI for him. Carmen was inquiring if he can go to [facility] and be sedated for MRI. Please call Carmen back/ will need to fax new order to [facility] as well. documented in this [facility]12-06-2024 Telephone encounter Note* Telephone Encounter - Barbara Monsivais - 04/20/2024 3:19 PM EST Carmen (IRA nurse) called in because Melissa is claustrophobic and Dr Ling ordered an MRI for him. Carmen was inquiring if he can go to [facility] and be sedated for MRI. Please call Carmen back/ will need to fax new order to [facility] as well. [facility] [id number] Nurse Note* Yaneli Sarkar RN - 04/02/2024 9:17 AM EST Patient's SPT removed with all water deflated from Balloon. Tolerated procedure well. New 18 frenchindwelling bartlett catheter straight tip inserted to Suprapubic site using aspetic technique. Suprapubic insertion site is satisfactory in appearance showing no signs or symptom of infection. SPT was irrigated with 120 cc of Sterile water to confirm placement and yellow urine draining well. Patient tolerated procedure well. Bartlett emptying and catheter care and teaching done. Patient verbalizes understanding. Dr. Glaser did change without problems. OK for facility to do the next change. [facility]11-18-2024 Nurse Note* Yaneli Sarkar RN - 04/02/2024 9:17 AM EST Patient's SPT removed with all water deflated from Balloon. Tolerated procedure well. New 18 frenchindwelling bartlett catheter straight tip inserted to Suprapubic site using aspetic technique. Suprapubic insertion site is satisfactory in appearance showing no signs or symptom of infection. SPT was irrigated with 120 cc of Sterile water to confirm placement and yellow urine draining well. Patient tolerated procedure well. Bartlett emptying and catheter care and teaching done. Patient verbalizes understanding. Dr. Glaser did change without problems. OK for facility to do the next change. documented in this encounterMedina Hospital11-18-2024 History of Present illness Narrative* Willem Glaser MD - 04/02/2024 8:15 AM EST Images from the original note were not included. [facility] UROLOGY CLINIC NOTE Patient: Melissa Elias Provider: Willem Glaser MD : 1965 Date of Service: 10/07/2023 PCP: Peter Thayer DO Chief complaint/Identification: Melissa Elias is a 58 year old male patient who presents for evaluation of urinary retention. ASSESSMENT: 1. Suprapubic catheter (HCC) - ICD9: V44.59, ICD10: Z93.59 (primary diagnosis) 2. Paraplegia (HCC) - ICD9: 344.1, ICD10: G82.20 3. Urinary retention - ICD9: 788.20, ICD10: R33.9 4. Wound of sacral region, sequela - ICD9: 906.0, ICD10: S31.000S 58 year old male s/p SPT placement - Exchanged in office today PLAN: Reviewed IR notes and imaging Continue monthly SPT changes (at his facility or here with nursing) ALFONSO follow up in 1 year Willem Glaser MD HPI: Melissa Elias is a 58 year old year old male who is being seen for urinary retention. PMHx: paraplegia, chronic sacral wound, chronic urinary retention 04/02/2024 SPT changed in office today with sterile technique. Changed without issue for 18F catheter. 02/06/2024: IR placement of SPT 10/07/2023 Presents for Bartlett catheter change. Nursing requested urology changes catheter as last month he hada traumatic Bartlett insertion, resulting in gross hematuria and need for cystoscopy/clot evacuation at outside hospital. - Discussed SPT. Patient will consider. 07/30/2023: C/S [place] - Hematuria after Bartlett malpositioned in prostatic urethra Patient has had his Bartlett catheter since last year. Reports it was placed because of his sacral wound. Reports he was urinating prior to catheter placement. Says he was not incontinent of urine. REVIEW OF SYSTEMS: A ROS was performed and pertinent negatives and positives can be found in the HPI. RELEVANT IMAGING STUDIES (most recent): No recent imaging LABS/INVESTIGATIONS: Urine Chemstrip: NA Creatinine Date Value Ref Range Status 08/12/2023 0.52 (L) 0.73 - 1.22 mg/dL Final 08/11/2023 0.54 (L) 0.73 - 1.22 mg/dL Final 08/09/2023 0.46 (L) 0.73 - 1.22 mg/dL Final 08/08/2023 0.44 (L) 0.73 - 1.22 mg/dL Final Hemoglobin Date Value 02/06/2024 7.8 g/dL 01/12/2021 9.1 G/DL Hematocrit (%) Date Value 02/06/2024 28.7 01/12/2021 29.0 HCT (%) Date Value 12/27/2022 28.9 WBC Date Value 02/06/2024 9.90 k/uL 12/27/2022 5.3 K/uL 01/12/2021 7.8 K/CUMM No results found for: PSA, PSAPER HISTORIES History reviewed. No pertinent family history. PAST MEDICAL HISTORY Diagnosis Date Back pain BMI 50.0-59.9, adult (HCC) Chronic indwelling Bartlett catheter 10/07/2023 HTN (hypertension) Obesity Paraplegia (HCC) Urinary retention Wound of sacral region, sequela PAST SURGICAL HISTORY Procedure Laterality Date PAST SURGICAL HISTORY OF 08/25/2016 L4-5 TLIF Lami L4-5 DOS 08/25/2016 second surgery 03-09-17 PICC LINE INSERTION (PICC TEAM) (AK) 12/01/2022 TONSILLECTOMY AND ADENOIDECTOMY HX Social History Tobacco Use Smoking status: Never Passive exposure: Never Smokeless tobacco: Never Vaping Use Vaping status: Never Used Substance Use Topics Alcohol use: No Drug use: No ALLERGIES No Known Allergies Current Outpatient Medications Medication Sig Dispense Refill apixaban (ELIQUIS) 5 mg tab(s) Take 5 mg by mouth two times a day. melatonin 3 mg capsules Take 3 mg by mouth daily at bedtime. oxyCODONE IR (ROXICODONE) 10 mg tab Take 10 mg by mouth as needed for pain. amLODIPine (NORVASC) 10 mg tablet Take 10 mg by mouth once daily. carvedilol (COREG) 12.5 mg tablet Take 12.5 mg by mouth two times a day with meals. loratadine (CLARITIN) 10 mg tablet Take 10 mg by mouth once daily. metFORMIN (GLUCOPHAGE) 500 mg tablet Take 500 mg by mouth daily with breakfast. cephALEXin (KEFLEX) 500 mg capsule Take 500 mg by mouth four times daily. guaiFENesin (MUCINEX) 600 mg 12 hr tablet Take 1 tablet by mouth two times a day as needed (congestion). gabapentin (NEURONTIN) 100 mg capsule Take 1 capsule by mouth every 8 hours for 30 days. diphenhydrAMINE-Zinc Acetate (BENADRYL) cream Apply to affected area three times a day as needed for itching/rash. FOR EXTERNAL USE ONLY APPLY TO: BACK sodium hypochlorite (DAKIN'S QUARTER STRENGTH) 0.125 % soln Irrigate 1 mL as instructed two times aday. FOR EXTERNAL USE ONLY APPLY TO: Sacrum wound with the dressing change insulin glargine 100 unit/mL (3 mL) Inject 20 Units subcutaneously every morning. furosemide (LASIX) 40 mg tablet Take 1 tablet by mouth every Tuesday and Tuesday. morphine SR (MS CONTIN) 15 mg 12 hr tablet Take 1 tablet by mouth every 12 hours for 7 days. 0 insulin needles, DISPOSABLE, (BD INSULIN PEN NEEDLE UF) 31 gauge x 5/16 1 Each four times daily. 100 Each 0 alcohol swabs Apply 1 application to affected area four times daily. 100 Each 1 acetaminophen (TYLENOL) 500 mg tablet 2 tablets by ORAL/FEEDING TUBE route every 6 hours as needed for pain or fever (specify) (mild pain). acetylcysteine (MUCOMYST) 200 mg/mL (20 %) solution Inhale 1 mL as instructed every 6 hours as needed (secretions). albuterol (PROVENTIL) 2.5 mg /3 mL (0.083 %) nebulizer solution Use 3 mL via nebulizer every 6 hours as needed for wheezing/shortness of breath. aspirin 81 mg chewable tablet 1 tablet by ORAL/FEEDING TUBE route once daily. insulin lispro 100 unit/mL injection Inject 0-5 Units subcutaneously with meals and at bedtime. Scale 1 If Blood Glucose (mg/dL) is: Less than 110 Give 0 units 111-150 Give 0 units 151-200 Give 1 unit 201-250 Give 2 units 251-300 Give 3 units 301-350 Give 4 units 351-400 Give 5 units Greater than 400 Give 5 units and Notify Provider Notify provider if 2 consecutive blood glucose values in the previous 24 hours are greater than 250 mg/dL and there have been no changes to the insulin regimen in the previous 24 hours. methocarbamol 1,000 mg tablet Take 1 tablet by mouth three times a day as needed (muscle spasms). methyl salicylate 30% - menthol 10% (ICY HOT) 30-10 % cream Apply to affected area three times a day as needed (upper back back). miconazole 2 % powder Apply 1 application to affected area two times a day. ondansetron, PF, (ZOFRAN) 4 mg/2 mL soln Inject 4 mg intravenously every 6 hours as needed for nausea/vomiting. orphenadrine (NORFLEX) 30 mg/mL injection Inject 1 mL intravenously every [address] (PROTONIX) 40 mg tablet Take 1 tablet by mouth daily at 6 am. polyethylene glycol 3350 17 gram packet 1 Packet by ORAL/FEEDING TUBE route once daily. Dissolve dose in 4 - 8 ounces of liquid and take as directed. rivaroxaban (XARELTO) 20 mg tablet Take 1 tablet by mouth daily with dinner. senna (SENOKOT) 8.6 mg tab Take 1 tablet by mouth two times a day. sodium chloride 0.65 % nasal spray Use 2 Sprays in each nostril as needed. triamcinolone acetonide (KENALOG) 0.1 % cream Apply to affected area three times a day as needed. naloxone 4 mg/actuation nasal spray (NARCAN) Use 1 spray in one nostril as needed for overdose. Mayrepeat every 2 to 3 min in alternating nostrils until medical assistance is available 0 Miscellaneous Medical Supply 1 Each once daily. Kelli Lift 1 Each 0 No current facility-administered medications for this visit. PHYSICAL EXAMINATION: Vitals: There were no vitals taken for this visit. BMI: There is no height or weight on file to calculate BMI. Constitutional: Apparent distress -No Psych: Alert & oriented - Yes; documented in this encounterMedina Hospital11-18-2024 NoteHNO ID: [id number] Author: WILLEM GLASER MD Service: ? Author Type: Physician Type: Progress Notes Filed: 04/02/2024 09:23 Note Text: [facility] UROLOGY CLINIC NOTE Patient: Melissa Elias Provider: Willem Glaser MD : 1965 Date of Service: 10/07/2023 PCP: Peter Thayer DO Chief complaint/Identification: Melissa Elias is a 58 year old male patient who presents for evaluation of urinary retention. ASSESSMENT: 1. Suprapubic catheter (HCC) - ICD9: V44.59, ICD10: Z93.59 (primary diagnosis) 2. Paraplegia (HCC) - ICD9: 344.1, ICD10: G82.20 3. Urinary retention - ICD9: 788.20, ICD10: R33.9 4. Wound of sacral region, sequela - ICD9: 906.0, ICD10: S31.000S 58 year old male s/p SPT placement - Exchanged in office today PLAN: Reviewed IR notes and imaging Continue monthly SPT changes (at his facility or here with nursing) ALFONSO follow up in 1 year Willem Glaser MD HPI: Melissa Elias is a 58 year old year old male who is being seen for urinary retention. PMHx: paraplegia, chronic sacral wound, chronic urinary retention 04/02/2024 SPT changed in office today with sterile technique. Changed without issue for 18F catheter. 02/06/2024: IR placement of SPT 10/07/2023 Presents for Bartlett catheter change. Nursing requested urology changes catheter as last month he had a traumatic Bartlett insertion, resulting in gross hematuria and need for cystoscopy/clot evacuation at outside hospital. - Discussed SPT. Patient will consider. 07/30/2023: C/S [place] - Hematuria after Bartlett malpositioned in prostatic urethra Patient has had his Bartlett catheter since last year. Reports it was placed because of his sacral wound. Reports he was urinating prior to catheter placement. Says he was not incontinent of urine. REVIEW OF SYSTEMS: A ROS was performed and pertinent negatives and positives can be found in the HPI. RELEVANT IMAGING STUDIES (most recent): No recent imaging LABS/INVESTIGATIONS: Urine Chemstrip: NA Creatinine Date Value Ref Range Status 08/12/2023 0.52 (L) 0.73 - 1.22 mg/dL Final 08/11/2023 0.54 (L) 0.73 - 1.22 mg/dL Final 08/09/2023 0.46 (L) 0.73 - 1.22 mg/dL Final 08/08/2023 0.44 (L) 0.73 - 1.22 mg/dL Final Hemoglobin Date Value 02/06/2024 7.8 g/dL 01/12/2021 9.1 G/DL Hematocrit (%) Date Value 02/06/2024 28.7 01/12/2021 29.0 HCT (%) Date Value 12/27/2022 28.9 WBC Date Value 02/06/2024 9.90 k/uL 12/27/2022 5.3 K/uL 01/12/2021 7.8 K/CUMM No results found for: PSA, PSAPER HISTORIES History reviewed. No pertinent family history. PAST MEDICAL HISTORY Diagnosis Date Back pain BMI 50.0-59.9, adult (HCC) Chronic indwelling Bartlett catheter 10/07/2023 HTN (hypertension) Obesity Paraplegia (HCC) Urinary retention Wound of sacral region, sequela PAST SURGICAL HISTORY Procedure Laterality Date PAST SURGICAL HISTORY OF 08/25/2016 L4-5 TLIF [place]ami L4-5 DOS 08/25/2016 second surgery 03-09-17 PICC LINE INSERTION (PICC TEAM) (AK) 12/01/2022 TONSILLECTOMY AND ADENOIDECTOMY HX Social History Tobacco Use Smoking status: Never Passive exposure: Never Smokeless tobacco: Never Vaping Use Vaping status: Never Used Substance Use Topics Alcohol use: No Drug use: No ALLERGIES No Known Allergies Current Outpatient Medications Medication Sig Dispense Refill apixaban (ELIQUIS) 5 mg tab(s) Take 5 mg by mouth two times a day. melatonin 3 mg capsules Take 3 mg by mouth daily at bedtime. oxyCODONE IR (ROXICODONE) 10 mg tab Take 10 mg by mouth as needed for pain. amLODIPine (NORVASC) 10 mg tablet Take 10 mg by mouth once daily. carvedilol (COREG) 12.5 mg tablet Take 12.5 mg by mouth two times a day with meals. loratadine (CLARITIN) 10 mg tablet Take 10 mg by mouth once daily. metFORMIN (GLUCOPHAGE) 500 mg tablet Take 500 mg by mouth daily with breakfast. cephALEXin (KEFLEX) 500 mg capsule Take 500 mg by mouth four times daily. guaiFENesin (MUCINEX) 600 mg 12 hr tablet Take 1 tablet by mouth two times a day as needed (congestion). gabapentin (NEURONTIN) 100 mg capsule Take 1 capsule by mouth every 8 hours for 30 days. diphenhydrAMINE-Zinc Acetate (BENADRYL) cream Apply to affected area three times a day as needed for itching/rash. FOR EXTERNAL USE ONLY APPLY TO: BACK sodium hypochlorite (DAKIN'S QUARTER STRENGTH) 0.125 % soln Irrigate 1 mL as instructed two times a day. FOR EXTERNAL USE ONLY APPLY TO: Sacrum wound with the dressing change insulin glargine 100 unit/mL (3 mL) Inject 20 Units subcutaneously every morning. furosemide (LASIX) 40 mg tablet Take 1 tablet by mouth every Tuesday and Tuesday. morphine SR (MS CONTIN) 15 mg 12 hr tablet Take 1 tablet by mouth every 12 hours for 7 days. 0 insulin needles, DISPOSABLE, (BD INSULIN PEN NEEDLE UF) 31 gauge x 5/16 1 Each four time (more content not included)...[facility]11-15-2024 Telephone encounter Note* Telephone Encounter - Barbara Monsivais - 03/30/2024 2:00 PM EST Caregiver called in to cancel the appt in Apr. Said it was not needed. [facility] [id number] Miscellaneous Notes* Telephone Encounter - Barbara Monsivais - 03/30/2024 2:00 PM EST Caregiver called in to cancel the appt in Apr. Said it was not needed. documented in this encounterSDayton VA Medical [id number] Telephone encounter Note* Telephone Encounter - Arnie Andino - 03/09/2024 3:50 PM EDT Carmen with [facility] called to get phone number for Central Scheduling to coordinateand schedule patients MRI. [id number] Miscellaneous Notes* Telephone Encounter - Arnie Andino - 03/09/2024 3:50 PM EDT Carmen with [facility] called to get phone number for Central Scheduling to coordinateand schedule patients MRI. documented in this [facility]10-04-2024 Ada with Rehab called to schedule patient with Dr Ling. She will send referral over.[facility]10-04-2024 Telephone encounter Note* Telephone Encounter - Arnie Andino - 02/17/2024 12:24 PM EDT Olimpia with Rehab called to schedule patient with Dr Ling. She will send referral over. [facility] [id number] Miscellaneous Notes* Telephone Encounter - Arnie Andino - 02/17/2024 12:24 PM EDT Olimpia with Rehab called to schedule patient with Dr Ling. She will send referral over. documented in this [facility]10-01-2024 Telephone encounter Note* Telephone Encounter - Boaz Hernandez RN - 02/14/2024 10:55 AM EDT Called and spoke with Hamzah and she will get patient scheduled with Dr Glaser for first supra pubic tube change. [facility]10-01-2024 Miscellaneous Notes* Telephone Encounter - Boaz Hernandez RN - 02/14/2024 10:55 AM EDT Called and spoke with Hamzah and she will get patient scheduled with Dr Glaser for first supra pubic tube change. * Telephone Encounter - Boaz Hernandez RN - 02/13/2024 1:01 PM EDT Patient alf called from [phone] ([place]), they were requesting to know when or if patient should follow up with urology. A called back was made and message left that patient would need a4-6 week follow up with Dr Glaser to have catheter changed for the first time. Once this is completed then catheter could be changed by nursing either at Dr's office or at alf by nursing staff. documented in this encounterMedina Hospital09-30-2024 Telephone encounter Note * Telephone Encounter - Boaz Hernandez RN - 02/13/2024 1:01 PM EDT Patient alf called from [phone] ([place]), they were requesting to know when or if patient should follow up with urology. A called back was made and message left that patient would need a4-6 week follow up with Dr Glaser to have catheter changed for the first time. Once this is completed then catheter could be changed by nursing either at Dr's office or at alf by nursing staff. [facility]09-19-2024 Telephone encounter Note* Telephone Encounter - Tianna Lyle RN - 02/02/2024 3:05 PM EDT Scheduling desk received call back and VM from facility. Attempt to return call but did not get ahold of anyone. LVM at following numbers: Sujey [phone] Sadia [phone] [facility] Nurse [phone] [facility]09-19-2024 Miscellaneous Notes* Telephone Encounter - Tianna Lyle RN - 02/02/2024 3:05 PM EDT Scheduling desk received call back and VM from facility. Attempt to return call but did not get ahold of anyone. LVM at following numbers: Sujey [phone] Sadia [phone] [facility] Nurse [phone] documented in this encounterMedina Hospital08-22-2024 Telephone encounter Note * Telephone Encounter - Nai Heard - 01/05/2024 1:09 PM EDTSummary: SPT Placement Reschedule Pt was scheduled 01/04 at [facility] for SPT placement. Facility where pt stays did not hold Eliquis. Called and left VM to get pt rescheduled. [facility]08-22-2024 Miscellaneous Notes* Telephone Encounter - Nai Heard - 01/05/2024 1:09 PM EDTSummary: SPT Placement Reschedule Pt was scheduled 01/04 at [facility] for SPT placement. Facility where pt stays did not hold Eliquis. Called and left VM to get pt rescheduled. documented in this encounterMedina Hospital08-22-2024 NoteHNO ID: [id number] Author: RAMÍREZ MENDEZ RN Service: Nursing Author Type: Registered Nurse Type: Progress Notes Filed: 01/05/2024 08:35 Note Text: Pt admitted to [facility] for suprapubic catheter insertion. Called and spoke with Radhika PERALTA at [facility] and she states pt took Eliquis last night around 4:30 pm. IR office notified. Pt states he confirmed with his nurse that they were holding his eliquis yesterday. Called alf to confirm last dose again. Nurse Letha confirmed pt had eliquis yesterday. [id number] Telephone encounter Note* Telephone Encounter - Nai Heard - 12/20/2023 10:16 AM EDT Hamzah returned my call and left VM. I called her call but there was no answer so I left another VM. [facility]08-06-2024 Miscellaneous Notes* Telephone Encounter - Nai Heard - 12/20/2023 10:16 AM EDT Hamzah returned my call and left VM. I called her call but there was no answer so I left another VM. * Telephone Encounter - Nai Heard - 11/30/2023 9:59 AM EDTSummary: SPT Placement Left VM for Hamzah ([phone]) per pt request to schedule. documented in this encounterMedina Hospital07-18-2024 Nurse Note* Yaneli Sarkar RN - 12/01/2023 9:23 AM EDT Patient's bartlett removed with all water removed from Balloon. Tolerated procedure well. New 24 sao tomean indwelling bartlett catheter Straight tip inserted using aspetic technique by Boaz Alston RN. I assisted with helping with change. Patient tolerated procedure well. Clear yellow urine returning confirming placement. Bartlett bag emptying and catheter care and teaching done. Patient verbalizes understanding. Irrigated out with 300 cc sterile water, no clots or blood noted. Clear return. When bartlett removed the 26 sao tomean had 100 cc in Balloon holding into bladder. Put in 20 cc into current balloon. Ready to be set up with IR for SPT placement. [facility]07-18-2024 Nurse Note* Yaneli Sarkar RN - 12/01/2023 9:23 AM EDT Patient's bartlett removed with all water removed from Balloon. Tolerated procedure well. New 24 sao tomean indwelling bartlett catheter Straight tip inserted using aspetic technique by Boaz Alston RN. I assisted with helping with change. Patient tolerated procedure well. Clear yellow urine returning confirming placement. Bartlett bag emptying and catheter care and teaching done. Patient verbalizes understanding. Irrigated out with 300 cc sterile water, no clots or blood noted. Clear return. When bartlett removed the 26 sao tomean had 100 cc in Balloon holding into bladder. Put in 20 cc into current balloon. Ready to be set up with IR for SPT placement. documented in this encounterMedina Hospital07-17-2024 Telephone encounter Note * Telephone Encounter - Nai Heard - 11/30/2023 9:59 AM EDTSummary: SPT Placement Left VM for Hamzah ([phone]) per pt request to schedule. [facility]07-15-2024 Telephone encounter Note* Telephone Encounter - Willem Glaser MD - 11/28/2023 5:26 PM EDT Patient called, electing to proceed with suprapubic tube placement with interventional radiology. Order placed, will also arrange 1 month follow-up after placement for initial exchange. Willem Glaser MD [facility]07-15-2024 Miscellaneous Notes* Telephone Encounter - Willem Glaser MD - 11/28/2023 5:26 PM EDT Patient called, electing to proceed with suprapubic tube placement with interventional radiology. Order placed, will also arrange 1 month follow-up after placement for initial exchange. Willem Glaser MD documented in this encounterMedina Hospital06-21-2024 NoteHospitalist Discharge Summary Melissa Elias : 1965 Admit date: 10/27/2023 Discharge date: 11/04/2023 Admitting Physician: Ellyn De León MD Primary Care Physician: ROCIO BARTLETT Visit Status: Inpatient Code Status: Full Code Acute, acute on chronic, unstable/uncontrolled chronic problems/diagnoses: Healthcare Acquired Pneumonia Culture from thoracentesis not obtained at OSH pt with hx of ESBL -GNRS, as well as urine colonization with C. Auris. Patient was discharged on ertapenem, Suspected PNA was Gram negative pneumonia (excluding Haemophilus influenza) responsive to therapy Complicated Urinary Tract Infection Acute respiratory failure with hypoxia 2/2 above Chronic sacral pressure ulcer Acute on chronic anemia Stable chronic problems affecting care, new non-acute diagnoses: Diabetes Mellitus BATOOL on BiPAP Chronic Pain 4. Paraplegia hemiparesis 5. Morbidly obese with BMI >49.3 6. T2DM 7. Hx of Bilateral PE 8. Hx of sepsis with rhabdomyolysis 9. ANTOLIN 10. Unspecified heart failure History reviewed. No pertinent past medical history. Procedures: XR chest x3, PICC insert/replace, Hospital Course: See discharge diagnoses list above and medication adjustments below in med rec. presented to ED with healthcare acquired pneumonia. Hx significant for DMII, paraplegia, BATOOL, Hx of blood clots and resides at [facility]. (+) Chronic Bartlett, was recently found to have ESBL E coli UTI. Admitted 10/24 at [place] when he presented to ED for hypoxia and found to have pneumonia. Started on empiric Vancomycin/Merrem. Pt transferred to [facility] from [place] for CT Surgical specialty assessment for drainage of effusions. Patient improvement s/p gluteal drain removal, alert conversant/amenable to return to snf with iv abx, reduce lower extremity mobility at baseline The patient is discharged in improved and stable condition. Consults: IP CONSULT TO CARDIOTHORACIC SURGERY IP CONSULT TO INFECTIOUS DISEASES IP CONSULT TO PULMONOLOGY IP WOUND CARE NURSE CONSULT TO EVAL IP WOUND CARE NURSE CONSULT TO EVAL IP WOUND CARE NURSE CONSULT TO EVAL IP CONSULT TO DIETITIAN IP CONSULT TO PROCEDURE TEAM Discharge Instructions: Diet: Dietary Orders (From admission, onward) Start Ordered 11/03/23 1725 Supplement:Breakfast, Dinner; Rhinelander Wiliam Until discontinued Question Answer Comment Frequency Breakfast Frequency Dinner Select supplement: Rhinelander Wiliam 11/03/23 1724 11/03/23 1725 Supplement:Lunch; Ensure Max Protein Until discontinued Question Answer Comment Frequency Lunch Select supplement: Ensure Max Protein 11/03/23 1724 10/28/23 181 Adult diet Regular; Isolation Tray (Disposables); 4 carb choices (60 gm/meal) Diet effective now Question Answer Comment Diet type Regular Tray Modifier: Isolation Tray (Disposables) Carbohydrate restriction: 4 carb choices (60 gm/meal) 10/28/231816 Activity: as tolerated Recommended Outpatient Tests: Disposition: Patient discharged in stable condition to SNF. 45 minutes spent discharging the patient and coming up with patient discharge plan. Vitals: BP 130/69 (BP Location: Left arm, Patient Position: Sitting) Pulse 96 Temp 36.4 ?C (97.6 ?F) (Temporal) Resp 18 Ht 5' 7 (1.702 m) Wt (!) 313 lb 0.9 oz (142 kg) SpO2 95% BMI 49.03 kg/m? Pulse Ox: SpO2 Av.9 % Min: 95 % Max: 98 % Supplemental O2: O2 Flow Rate (L/min): 4 L/min Physical Exam Constitutional: Appearance: He is obese. Eyes: Extraocular Movements: Extraocular movements intact. Cardiovascular: Rate and Rhythm: Normal rate and regular rhythm. Pulmonary: Effort: Pulmonary effort is normal. Abdominal: Palpations: Abdomen is soft. Neurological: Mental Status: He is alert and oriented to person, place, and time. Mental status is at baseline. Psychiatric: Mood and Affect: Mood normal. Behavior: Behavior normal. LABS: Recent Labs 11/02/23 0611/03/23 0259 11/04/23 0538 NA 137 135 136 K 4.2 4.0 4.1 CL 101 99 101 CO2 31* 31* 31* BUN 14 13 13 CREATININE 0.47* 0.58* 0.50* GLUCOSE 146* 214* 135* CALCIUM 8.4 8.1* 8.4 Recent Labs 11/02/23 0611/03/23 0259 11/04/23 0538 WBC 9.2 11.8* 8.7 RBC 3.59* 3.63* 3.55* HGB 7.3* 7.2* 7.3* HCT 26.7* 27.3* 26.8* MCV 74.4* 75.2* 75.5* MCH 20.3* 19.8* 20.6* MCHC 27.3* 26.4* 27.2* RDW 19.8* 19.8* 19.6* PLT 423 459* 420 MPV 9.1 9.5 9.2 Discharge Medications: Medication List START taking these medications amLODIPine 10 MG tablet Commonly known as: Norvasc Take 1 tablet (10 mg) by mouth daily. Start taking on: November 05, 2023 apixaban 5 MG tablet Commonly known as: Eliquis Take 1 tablet (5 mg) by mouth 2 times daily. carboxymethylcellulose PF 0.5 % ophthalmic solution Commonly known as: Refresh Plus Administer 1 drop into both eyes 2 times daily as needed for dry eyes. carvedilol 12.5 MG tablet Commonly known as: (more content not included)...[facility] 11-04-2023 Hospital course Narrative* Prince Bear MD - 11/04/2023 4:26 PM EDT Hospitalist Discharge Summary Melissa Elias : 1965 Admit date: 10/27/2023 Discharge date: 11/04/2023 Admitting Physician: Ellyn De León MD Primary Care Physician: ROCIO BARTLETT Visit Status: Inpatient Code Status: Full Code Acute, acute on chronic, unstable/uncontrolled chronic problems/diagnoses: Healthcare Acquired Pneumonia Complicated Urinary Tract Infection Acute respiratory failure with hypoxia 2/2 above Chronic sacral pressure ulcer Acute on chronic anemia Stable chronic problems affecting care, new non-acute diagnoses: Diabetes Mellitus BATOOL on BiPAP Chronic Pain 4. Paraplegia hemiparesis 5. Morbidly obese with BMI >49.3 6. T2DM 7. Hx of Bilateral PE 8. Hx of sepsis with rhabdomyolysis 9. ANTOLIN 10. Unspecified heart failure History reviewed. No pertinent past medical history. Procedures: XR chest x3, PICC insert/replace, Hospital Course: See discharge diagnoses list above and medication adjustments below in med rec. presented to ED with healthcare acquired pneumonia. Hx significant for DMII, paraplegia, BATOOL, Hx ofblood clots and resides at [facility]. (+) Chronic Bartlett, was recently found to haveESBL E coli UTI. Admitted 10/24 at [place] when he presented to ED for hypoxia and found to have pneumonia. Started on empiric Vancomycin/Merrem. Pt transferred to [facility] from [place] for CT Surgical specialty assessment for drainage of effusions. Patient improvement s/p gluteal drain removal, alert conversant/amenable to return to snf with iv abx, reduce lower extremity mobility at baseline The patient is discharged in improved and stable condition. Consults: IP CONSULT TO CARDIOTHORACIC SURGERY IP CONSULT TO INFECTIOUS DISEASES IP CONSULT TO PULMONOLOGY IP WOUND CARE NURSE CONSULT TO EVAL IP WOUND CARE NURSE CONSULT TO EVAL IP WOUND CARE NURSE CONSULT TO EVAL IP CONSULT TO DIETITIAN IP CONSULT TO PROCEDURE TEAM Discharge Instructions: Diet: Dietary Orders (From admission, onward) Start Ordered 11/03/231724 Supplement:Breakfast, Dinner; Rhinelander Wiliam Until discontinued Question Answer Comment Frequency Breakfast Frequency Dinner Select supplement: Rhinelander Wiliam 11/03/23 1724 11/03/23 172 Supplement:Lunch; Ensure Max Protein Until discontinued Question Answer Comment Frequency Lunch Select supplement: Ensure Max Protein 11/03/23 1724 10/28/23 181 Adult diet Regular; Isolation Tray (Disposables); 4 carb choices (60 gm/meal) Diet effective now Question Answer Comment Diet type Regular Tray Modifier: Isolation Tray (Disposables) Carbohydrate restriction: 4 carb choices (60 gm/meal) 10/28/231816 Activity: as tolerated Recommended Outpatient Tests: Disposition: Patient discharged in stable condition to SNF. 45 minutes spent discharging the patient and coming up with patient discharge plan. Vitals: BP 130/69 (BP Location: Left arm, Patient Position: Sitting) Pulse 96 Temp 36.4 C (97.6F) (Temporal) Resp 18 Ht 5' 7 (1.702 m) Wt (!) 313 lb 0.9 oz (142 kg) SpO2 95% BMI 49.03kg/m Pulse Ox: SpO2 Av.9 % Min: 95 % Max: 98 % Supplemental O2: O2 Flow Rate (L/min): 4 L/min Physical Exam Constitutional: Appearance: He is obese. Eyes: Extraocular Movements: Extraocular movements intact. Cardiovascular: Rate and Rhythm: Normal rate and regular rhythm. Pulmonary: Effort: Pulmonary effort is normal. Abdominal: Palpations: Abdomen is soft. Neurological: Mental Status: He is alert and oriented to person, place, and time. Mental status is at baseline. Psychiatric: Mood and Affect: Mood normal. Behavior: Behavior normal. LABS: Recent Labs 11/02/23 0611/03/23 0259 11/04/23 0538 NA 137 135 136 K 4.2 4.0 4.1 CL 101 99 101 CO2 31* 31* 31* BUN 14 13 13 CREATININE 0.47* 0.58* 0.50* GLUCOSE 146* 214* 135* CALCIUM 8.4 8.1* 8.4 Recent Labs 11/02/23 0611/03/23 0259 11/04/23 0538 WBC 9.2 11.8* 8.7 RBC 3.59* 3.63* 3.55* HGB 7.3* 7.2* 7.3* HCT 26.7* 27.3* 26.8* MCV 74.4* 75.2* 75.5* MCH 20.3* 19.8* 20.6* MCHC 27.3* 26.4* 27.2* RDW 19.8* 19.8* 19.6* PLT 423 459* 420 MPV 9.1 9.5 9.2 Discharge Medications: Medication List START taking these medications amLODIPine 10 MG tablet Commonly known as: Norvasc Take 1 tablet (10 mg) by mouth daily. Start taking on: November 05, 2023 apixaban 5 MG tablet Commonly known as: Eliquis Take 1 tablet (5 mg) by mouth 2 times daily. carboxymethylcellulose PF 0.5 % ophthalmic solution Commonly known as: Refresh Plus Administer 1 drop into both eyes 2 times daily as needed for dry eyes. carvedilol 12.5 MG tablet Commonly known as: Coreg Take 1 tablet (12.5 mg) by mouth in the morning and 1 tablet (12.5 mg) in the evening. Take with meals. cetirizine 10 MG tablet Commonly known as: ZyrTEC Take 1 tablet (10 mg) by mouth daily. Start taking on: November 05, 2023 diphenhydrAMINE 25 MG capsule Commonly known as: BENADryl Take 1 capsule (25 mg) by mouth every 8 hours as needed for itching. ertapenem 1,000 mg in sodium chloride 0.9 % 50 mL IVPB Infuse 1,000 mg into a venous catheter Every 24 hours. gabapentin 100 MG capsule Commonly known as: Neurontin Take 1 capsule (100 mg) by mouth 2 times daily. guaiFENesin ER 1200 MG 12 hour tablet Take 1 tablet (1,200 mg) by mouth 2 times daily. Do not crush, chew, or split. insulin glargine 100 UNIT/ML injection Commonly known as: Lantus Inject 24 Units under the skin every morning. Start taking on: November 05, 2023 melatonin 3 MG tablet Take 2 tablets (6 mg) by mouth Nightly. Methocarbamol 1000 MG tablet Take 1,000 mg by mouth every 8 hours as needed for muscle spasms for up to 10 days. morphine CR 30 MG 12 hr tablet Commonly known as: MS Contin Take 1 tablet (30 mg) by mouth in the morning and 1 tablet (30 mg) before bedtime. Do all this for 5 days. Do not crush, chew, or split.. naloxone 0.4 MG/ML injection Commonly known as: Narcan Infuse 1 mL (0.4 mg) into a venous catheter every 5 minutes as needed for opioid reversal or respiratory depression. oxyCODONE 10 MG immediate release tablet Commonly known as: Roxicodone Take 1 tablet (10 mg) by mouth every 6 hours as needed for moderate pain (4-6) or severe pain (7-10) for up to 5 days. pantoprazole 40 MG EC tablet Commonly known as: ProtoNix Take 1 tablet (40 mg) by mouth every morning (before breakfast). Do not crush, chew, or split. Start taking on: November 05, 2023 polyethylene glycol (PEG) 3350 17 g packet Commonly known as: Miralax Take 17 g by mouth Daily as needed (constipation). senna-docusate sodium 8.6-50 MG tablet Commonly known as: Senokot-S Take 2 tablets by mouth Nightly. STOP taking these medications ERTAPENEM SODIUM IV Where to Get Your Medications These medications were sent to [facility] [address] [place] [address] Hours: Tuesday to Tuesday 10 am to 6 pm amLODIPine 10 MG tablet apixaban 5 MG tablet carboxymethylcellulose PF 0.5 % ophthalmic solution carvedilol 12.5 MG tablet cetirizine 10 MG tablet diphenhydrAMINE 25 MG capsule gabapentin 100 MG capsule guaiFENesin ER 1200 MG 12 hour tablet insulin glargine 100 UNIT/ML injection pantoprazole 40 MG EC tablet polyethylene glycol (PEG) 3350 17 g packet senna-docusate sodium 8.6-50 MG tablet You can get these medications from any pharmacy Bring a paper prescription for each of these medications ertapenem 1,000 mg in sodium chloride 0.9 % 50 mL IVPB morphine CR 30 MG 12 hr tablet oxyCODONE 10 MG immediate release tablet Information about where to get these medications is not yet available Ask your nurse or doctor about these medications melatonin 3 MG tablet Methocarbamol 1000 MG tablet naloxone 0.4 MG/ML injection Recommended Follow-up: No follow-up provider specified. Complexity of Follow up: [] Moderate Complexity: follow up within 7-14 calendar days (57720) [x] Severe Complexity: follow up within 7 calendar days (33066) Follow up Testing, Pending results or Referrals at Transitional Care Visit: [x] yes [] no Instructions to MA: Please call patient on day after discharge (must document patient contacted within 2 business days of discharge). Follow up questions for MA: 1. Did you get medications filled and taking them as instructed from discharge? 2. Are you following your discharge instructions from your hospital stay? 3. Please confirm patient is scheduled for a follow up appointment within the above time frame. Signed: Prince Bear MD Division of Hospitalist Medicine Inpatient Medical Services/[facility] [place] 11/04/2023, 4:26 PM documented in this encounterSDayton VA Medical [id number] Note* Care Coordination - Princess Adame - 11/04/2023 2:40 PM EDT Discharge med list transmitted to [facility]. [facility] [id number] Note* Care Coordination - Princess Adame - 11/04/2023 2:40 PM EDT Discharge med list transmitted to [facility] via [facility] per TCC request. [facility] [id number] Miscellaneous Notes* Care Coordination - Princess Adame - 11/04/2023 2:40 PM EDT Discharge med list transmitted to [facility] via [facility] per TCC request. * Care Coordination - SIHVANI Jang - 11/04/2023 2:22 PM EDT SW coverage for today. Notified that pt is approved to go to [facility] in [place]. Arranged transport thru [facility] for fern picker at 6PM. Notified RN, TCC, facility,pt, and community health nurse staff. Pt indicates that he will let his family know. * Care Coordination - Nicole Warren RN - 11/04/2023 11:05 AM EDT Images from the original note were not included. Care Management Progress Note Waitng for pre cert for SNF. Needs ling term IV's. . Discharge Milestones and Delays Expected date/time: 11/07/2023 Expected discharge disposition: Detention/Residential Care Discharge Milestones Place discharge order Complete med reconciliation Case mgmt discharge readiness Clinical Stability Diagnsotic Workup Facility Choice Selection Patient Education Complete Expected Discharge History Expected Date/Time Set By Reviewed At 11/07/2023 SHIVANI Jang 11/04/2023 9:53 AM 11/04/2023 Bandar Jules RN 11/03/2023 7:51 AM 11/04/2023 Bandar Jules RN 11/02/2023 8:00 AM 11/01/2023 MAHNAZ De La Cruz 11/01/2023 9:34 AM Waiting on IV Abx determination by ID. 11/02/2023 Taina Prieto RN 11/01/2023 9:23 AM 11/01/2023 Taina Prieto RN 10/31/2023 9:01 AM 10/30/2023 Ellyn De León MD 10/27/2023 10:04 PM Length of Stay (Days): 8 GMLOS: 4.1 * Care Plan - Radha Mir RN - 11/04/2023 2:15 AM EDT The patient is Moderately Stable - Low risk of patient condition declining or worsening The patient's goals for the shift include To breath better The clinical goals for the shift include Pt safety * Care Coordination - MAHNAZ De La Cruz - 11/03/2023 1:25 PM EDT SW cont to follow with TCC for return to [place]. Amb request in [facility] as Will Call. * Care Coordination - Princess Adame - 11/03/2023 8:51 AM EDT Updated PT note placed to [facility] [place] via [facility] per TCC request. * Care Coordination - Bandar Jules RN - 11/03/2023 8:30 AM EDT [facility] tasked BATTERY LOADER to send updated therapy noted to Lor[facility] Zazueta. * Care Plan - Sarah Thomas RN - 11/03/2023 1:01 AM EDT Problem: Knowledge Deficit Goal: Patient/family/caregiver demonstrates understanding of disease process, treatment plan, medications, and discharge instructions Outcome: Progressing Problem: Potential for Compromised Skin Integrity Goal: Skin Integrity is Maintained or Improved Outcome: Progressing Goal: Nutritional status is improving Outcome: Progressing Problem: Urinary Incontinence Goal: Perineal skin integrity is maintained or improved Outcome: Progressing Problem: Hemodynamic Status Goal: Patient's vitals signs are stable Outcome: Progressing Problem: Excessive Fluid Volume Goal: Fluid and electrolyte balance are achieved/maintained Outcome: Progressing Problem: Inadequate Gas Exchange Goal: Nutritional status is improving Outcome: Progressing Goal: Patient is adequately oxygenated and ventilation is improved Outcome: Progressing Problem: Activity Intolerance/Impaired Mobility Goal: Mobility/activity is maintained at optimum level for patient Outcome: Progressing Problem: Nutrition Goal: Nutritional status is improving Outcome: Progressing Problem: Problem Interventions Goal: Assess Nutritional Intake Outcome: Progressing The patient is Moderately Stable - Low risk of patient condition declining or worsening The patient's goals for the shift include To breath better The clinical goals for the shift include Pt safety * Care Plan - Madina Ballard RN - 11/02/2023 1:19 PM EDT Problem: Knowledge Deficit Goal: Patient/family/caregiver demonstrates understanding of disease process, treatment plan, medications, and discharge instructions 11/02/2023 1318 by Madina Ballard RN Outcome: Progressing Flowsheets (Taken 11/02/2023 1243) Patient/family/caregiver demonstrates understanding of disease process, treatment plan, medications, and discharge instructions: Complete learning assessment and assess knowledge base Provide teaching at level of understanding Provide teaching via preferred learning methods 11/02/2023 1243 by Madina Ballard RN Outcome: Progressing Flowsheets (Taken 11/02/2023 1243) Patient/family/caregiver demonstrates understanding of disease process, treatment plan, medications, and discharge instructions: Complete learning assessment and assess knowledge base Provide teaching at level of understanding Provide teaching via preferred learning methods Problem: Potential for Compromised Skin Integrity Goal: Skin Integrity is Maintained or Improved 11/02/2023 1318 by Madina Ballard RN Outcome: Progressing Flowsheets (Taken 11/02/2023 1243) Skin integrity is maintained or improved: Assess and monitor skin integrity Collaborate with interdisciplinary team and initiate plans and interventions as needed Identify patients at risk for skin breakdown on admission and per policy Turn patient Avoid shearing Relieve pressure to bony prominences Keep skin clean and dry Alternate a full bath with partial baths for elderly 11/02/2023 1243 by Madina Ballard RN Outcome: Progressing Flowsheets (Taken 11/02/2023 1243) Skin integrity is maintained or improved: Assess and monitor skin integrity Collaborate with interdisciplinary team and initiate plans and interventions as needed Identify patients at risk for skin breakdown on admission and per policy Turn patient Avoid shearing Relieve pressure to bony prominences Keep skin clean and dry Alternate a full bath with partial baths for elderly * Care Plan - Madina Ballard RN - 11/02/2023 12:43 PM EDT Problem: Knowledge Deficit Goal: Patient/family/caregiver demonstrates understanding of disease process, treatment plan, medications, and discharge instructions Outcome: Progressing Flowsheets (Taken 11/02/2023 1243) Patient/family/caregiver demonstrates understanding of disease process, treatment plan, medications, and discharge instructions: Complete learning assessment and assess knowledge base Provide teaching at level of understanding Provide teaching via preferred learning methods Problem: Potential for Compromised Skin Integrity Goal: Skin Integrity is Maintained or Improved Outcome: Progressing Flowsheets (Taken 11/02/2023 1243) Skin integrity is maintained or improved: Assess and monitor skin integrity Collaborate with interdisciplinary team and initiate plans and interventions as needed Identify patients at risk for skin breakdown on admission and per policy Turn patient Avoid shearing Relieve pressure to bony prominences Keep skin clean and dry Alternate a full bath with partial baths for elderly * Care Coordination - Bandar Jules RN - 11/02/2023 8:43 AM EDT Images from the original note were not included. Care Management Progress Note Remains on 5W. OPAT in media. TCC tasked BATTERY LOADER to send to [place] per request for cost. Plan is [facility] when medically ready. TCC to follow. Discharge Milestones and Delays Expected date/time: 11/04/2023 Expected discharge disposition: [facility] Facility Discharge Milestones Place discharge order Complete med reconciliation Case mgmt discharge readiness Clinical Stability Diagnsotic Workup Facility Choice Selection Facility Pre-cert Patient Education Complete Expected Discharge History Expected Date/Time Set By Reviewed At 11/04/2023 Bandar Jules RN 11/02/2023 8:00 AM 11/01/2023 MAHNAZ De La Cruz 11/01/2023 9:34 AM Waiting on IV Abx determination by ID. 11/02/2023 Taina Prieto RN 11/01/2023 9:23 AM 11/01/2023 Taina Prieto RN 10/31/2023 9:01 AM 10/30/2023 Ellyn De León MD 10/27/2023 10:04 PM Length of Stay (Days): 6 GMLOS: 4.1 * Care Coordination - Princess Adame - 11/02/2023 8:35 AM EDT OPAT placed to [facility] via [facility] per TCC request. * Care Plan - Erika Gaffney RN - 11/01/2023 10:33 PM EDT Patient verbalized understanding of evening scheduled and prn medications. He verbalized schedule of prn medications for this shift. Skin Integrity maintained. He denies nausea, reports adequate appetite. Perineal skin maintained. Vitals stable, urine clear yellow. Patient repositioning encouraged. * Care Coordination - Princess Adame - 11/01/2023 2:19 PM EDT Updated notes placed to [facility] via [facility] per TCC request. Await review and response regarding ability to accept. TCC notified. * Care Coordination - Taina Prieto RN - 11/01/2023 11:40 AM EDT Images from the original note were not included. Care Management Progress Note Patient remains on 5W in isolation for brandon auris, on 4L O2. Cont IV Abx, PICC Line placed 10/30,awaiting OPAT form completion to send to SNF. PT recommending SNF, OT evaluation pending. Dischargeplan return to [facility]. Will need a new insurance authorization. Facility updated and I requested insurance authorization be started once OT evaluation obtained. Discharge Milestones and Delays Expected date/time: 11/01/[address] discharge order Complete med reconciliation Case mgmt discharge readiness Clinical Stability Diagnsotic Workup Test Results Patient Education Complete Expected Discharge History Expected Date/Time Set By Reviewed At 11/01/2023 MAHNAZ De La Cruz 11/01/2023 9:34 AM Waiting on IV Abx determination by ID. 11/02/2023 Taina Prieto RN 11/01/2023 9:23 AM 11/01/2023 Taina Prieto RN 10/31/2023 9:01 AM 10/30/2023 Ellyn De León MD 10/27/2023 10:04 PM Length of Stay (Days): 5 GMLOS: 4.1 * Care Coordination - Taina Prieto RN - 10/31/2023 1:08 PM EDT Received return call from Mother Marci and updated her on status and return to [facility]. * Care Coordination - MAHNAZ De La Cruz - 10/31/2023 11:29 AM EDT SW following with TCC for return to [facility]. * Care Coordination - Taina Prieto RN - 10/31/2023 11:17 AM EDT Care Managment Initial Assessment Date: 10/31/2023 Patient Name: Melissa Elias : 1965 Patient Information Source of Information: Patient Cognition/Language: WFL - Within Functional Limits Permission given to speak with patient guest services representative/caregiver as indicated: Yes Confirmation of Payer with patient/family: Yes Payer Name: [place] : Confirmation of Primary Care Physician: Confirmed PCP Name: Dr. Bartlett Seen in last 2 years?: Yes Primary Caregiver: (Facility) If assistance needed, confirmed caregiver ready, willing and able to care for patient at discharge: Confirmed with: Living Arrangements Current Residence: Number of Floors Number of Entry Steps: Bed/Bath Levels: Facility: Nursing Facility Skilled [facility] Name: [facility] Plan to Return: Yes Lives with: Alone Support Systems: Parent, horse show manager/social work administrator (Staff) Activities of Daily Living Ambulation: Assistance Bathing/Dressing: Assistance Elimination/Continence/Toileting: Assistance Feeding: Assistance Who Assists with Activities of Daily Living: Instrumental Activities of Daily Living Prescription Coverage: Yes Pharmacy Used: Facility Medication Management: Assistance Type: Dose packaging system Who assists with medication securing and setup?: Staff Transportation/Shopping: Transportation Mode: Needs Assistance with Transportation at Discharge: Meal Preparation: Assistance Provider Meal Prep Assistance Provider Name: Facility Laundry/Cleaning: Assistance Provider Laundry/Cleaning Assistance Provider Name: Facility Finances/Bill Paying: Independent Communication: Independent Types of Care Services/Equipment Utilized Care Services: Dialysis Type: NA Durable Medical Equipment: Wheelchair (standard or power) Patient's Goal/Discharge Plan Patient expects to be discharged to: Return to [facility] Discharge Planning Actions: Continue to follow Patient's Choice Rights and [employer] and Collaborative Relationships Disclosed as Indicated for Post-Acute Care: Interdisciplinary Team Engagement: Social Work Referral for: Additional Information: Confirmed with patient discharge plan return to [facility]. Taina Prieto RN * Care Coordination - Taina Prieto RN - 10/31/2023 11:10 AM EDT Images from the original note were not included. Care Management Progress Note Patient remains on 5W n isolation for brandon auris, on 4L O2. Cont IV Abx. Patient contacted via telephone and confirmed his plan is to return to [facility] in [place] upon discharge. Attempted to reach Mother, left HIPPA Compliant VM . Discharge Milestones and Delays Expected Date/Time: 11/01/[address] discharge order Complete med reconciliation Case mgmt discharge readiness Clinical Stability Diagnsotic Workup Expected Discharge History Expected Date/Time Set By Reviewed At 11/01/2023 Taina Prieto RN 10/31/2023 9:01 AM 10/30/2023 Ellyn De León MD 10/27/2023 10:04 PM Length of Stay (Days): 4 GMLOS: 4.1 * Care Plan - Sarah Thomas RN - 10/30/2023 1:32 AM EDT Problem: Knowledge Deficit Goal: Patient/family/caregiver demonstrates understanding of disease process, treatment plan, medications, and discharge instructions Outcome: Progressing Problem: Potential for Compromised Skin Integrity Goal: Skin Integrity is Maintained or Improved Outcome: Progressing Goal: Nutritional status is improving Outcome: Progressing Problem: Urinary Incontinence Goal: Perineal skin integrity is maintained or improved Outcome: Progressing Problem: Hemodynamic Status Goal: Patient's vitals signs are stable Outcome: Progressing Problem: Excessive Fluid Volume Goal: Fluid and electrolyte balance are achieved/maintained Outcome: Progressing Problem: Inadequate Gas Exchange Goal: Nutritional status is improving Outcome: Progressing Goal: Patient is adequately oxygenated and ventilation is improved Outcome: Progressing Problem: Activity Intolerance/Impaired Mobility Goal: Mobility/activity is maintained at optimum level for patient Outcome: Progressing Problem: Nutrition Goal: Nutritional status is improving Outcome: Progressing Problem: Problem Interventions Goal: Assess Nutritional Intake Outcome: Progressing The patient is Moderately Stable - Low risk of patient condition declining or worsening The patient's goals for the shift include To breath better The clinical goals for the shift include Pt safety * Care Plan - Sarah Thomas RN - 10/29/2023 12:52 AM EDT Problem: Knowledge Deficit Goal: Patient/family/caregiver demonstrates understanding of disease process, treatment plan, medications, and discharge instructions Outcome: Progressing Problem: Potential for Compromised Skin Integrity Goal: Skin Integrity is Maintained or Improved Outcome: Progressing Goal: Nutritional status is improving Outcome: Progressing Problem: Urinary Incontinence Goal: Perineal skin integrity is maintained or improved Outcome: Progressing Problem: Hemodynamic Status Goal: Patient's vitals signs are stable Outcome: Progressing Problem: Excessive Fluid Volume Goal: Fluid and electrolyte balance are achieved/maintained Outcome: Progressing Problem: Inadequate Gas Exchange Goal: Nutritional status is improving Outcome: Progressing Goal: Patient is adequately oxygenated and ventilation is improved Outcome: Progressing Problem: Activity Intolerance/Impaired Mobility Goal: Mobility/activity is maintained at optimum level for patient Outcome: Progressing Problem: Nutrition Goal: Nutritional status is improving Outcome: Progressing Problem: Problem Interventions Goal: Assess Nutritional Intake Outcome: Progressing The patient is Moderately Stable - Low risk of patient condition declining or worsening The patient's goals for the shift include To breath better The clinical goals for the shift include Pt safety * Care Plan - Lynn Camarena RN - 10/28/2023 5:15 PM EDT Problem: Knowledge Deficit Goal: Patient/family/caregiver demonstrates understanding of disease process, treatment plan, medications, and discharge instructions Outcome: Progressing Problem: Hemodynamic Status Goal: Patient's vitals signs are stable Outcome: Progressing The patient is Moderately Unstable - Medium risk of patient condition declining or worsening The patient's goals for the shift include To breath better The clinical goals for the shift include Pt safety Over the shift, the patient did not make progress toward the following goals. Barriers to progression include na. Recommendations to address these barriers include na. * Care Coordination - Sophia Emanuel - 10/28/2023 3:17 PM EDT Return referral placed to [facility] via [facility] per TCC request. Await review and response regarding ability to accept. TCC notified. * Care Coordination - Melissa Villanueva RN - 10/28/2023 3:07 PM EDT Pt in isolation for brandon auris. TCC tried to call into pt room three times with no answer, TCC called pt cell phone, left VM , and called mother's phone and left VM in attempts to complete IA. Pt is from [facility] in [place]. TCC tasked BATTERY LOADER to make return referral. TCC will attempt to complete IA as time allows.. * Care Plan - Sarah Thomas RN - 10/28/2023 2:09 AM EDT Problem: Knowledge Deficit Goal: Patient/family/caregiver demonstrates understanding of disease process, treatment plan, medications, and discharge instructions Outcome: Progressing Problem: Potential for Compromised Skin Integrity Goal: Skin Integrity is Maintained or Improved Outcome: Progressing Goal: Nutritional status is improving Outcome: Progressing Problem: Urinary Incontinence Goal: Perineal skin integrity is maintained or improved Outcome: Progressing Problem: Hemodynamic Status Goal: Patient's vitals signs are stable Outcome: Progressing Problem: Excessive Fluid Volume Goal: Fluid and electrolyte balance are achieved/maintained Outcome: Progressing Problem: Inadequate Gas Exchange Goal: Nutritional status is improving Outcome: Progressing Goal: Patient is adequately oxygenated and ventilation is improved Outcome: Progressing Problem: Activity Intolerance/Impaired Mobility Goal: Mobility/activity is maintained at optimum level for patient Outcome: Progressing Problem: Nutrition Goal: Nutritional status is improving Outcome: Progressing The patient is Moderately Stable - Low risk of patient condition declining or worsening documented in this encounterSDayton VA Medical [id number] Note* Care Coordination - SHIVANI Jang - 11/04/2023 2:22 PM EDT coverage for today. Notified that pt is approved to go to [facility]. Arranged transport [facility] for fern picker at 6PM. Notified RN, TCC, facility,pt, and community health nurse staff. Pt indicates that he will let his family know. [facility] [id number] Note* Care Coordination - SHIVANI Jang - 11/04/2023 2:22 PM EDT coverage for today. Notified that pt is approved to go to [facility] in [place]. Arranged transport thru [facility] with [employer] ambulance for fern picker at 6PM. Notified RN, TCC, facility,pt, and community health nurse staff. Pt indicates that he will let his family know. [facility] [id number] Note* Care Coordination - Nicole Warren RN - 11/04/2023 11:05 AM EDT Images from the original note were not included. Care Management Progress Note Waitng for pre cert for SNF. Needs ling term IV's. . Discharge Milestones and Delays Expected date/time: 11/07/2023 Expected discharge disposition: Detention/Residential Care Discharge Milestones Place discharge order Complete med reconciliation Case mgmt discharge readiness Clinical Stability Diagnsotic Workup Facility Choice Selection Patient Education Complete Expected Discharge History Expected Date/Time Set By Reviewed At 11/07/2023 SHIVANI Jang 11/04/2023 9:53 AM 11/04/2023 Bandar Jules RN 11/03/2023 7:51 AM 11/04/2023 Bandar Jules RN 11/02/2023 8:00 AM 11/01/2023 MAHNAZ De La Cruz 11/01/2023 9:34 AM Waiting on IV Abx determination by ID. 11/02/2023 Taina Prieto RN 11/01/2023 9:23 AM 11/01/2023 Taina Prieto RN 10/31/2023 9:01 AM 10/30/2023 Ellyn De León MD 10/27/2023 10:04 PM Length of Stay (Days): 8 GMLOS: 4.1 [facility] [id number] Note* Care Coordination - Nicole Warren RN - 11/04/2023 11:05 AM EDT Images from the original note were not included. Care Management Progress Note Waitng for pre cert for SNF. Needs ling term IV's. . Discharge Milestones and Delays Expected date/time: 11/07/2023 Expected discharge disposition: Detention/Residential Care Discharge Milestones Place discharge order Complete med reconciliation Case mgmt discharge readiness Clinical Stability Diagnsotic Workup Facility Choice Selection Patient Education Complete Expected Discharge History Expected Date/Time Set By Reviewed At 11/07/2023 SHIVANI Jang 11/04/2023 9:53 AM 11/04/2023 Bandar Jules, KATHRYN 11/03/2023 7:51 AM 11/04/2023 Bandar Jules RN 11/02/2023 8:00 AM 11/01/2023 MAHNAZ De La Cruz 11/01/2023 9:34 AM Waiting on IV Abx determination by ID. 11/02/2023 Taina Prieto, KATHRYN 11/01/2023 9:23 AM 11/01/2023 Taina Prieto RN 10/31/2023 9:01 AM 10/30/2023 Ellyn De León MD 10/27/2023 10:04 PM Length of Stay (Days): 8 GMLOS: 4.1 [facility]06-21-2024 NoteCare Management Progress Note Waitng for pre cert for SNF. Needs ling term IV's. . Discharge Milestones and Delays Expected date/time: 11/07/2023 Expected discharge disposition: Detention/Residential Care Discharge Milestones Place discharge order Complete med reconciliation Case mgmt discharge readiness Clinical Stability Diagnsotic Workup Facility Choice Selection Patient Education Complete Expected Discharge History Expected Date/Time Set By Reviewed At 11/07/2023 SHIVANI Jang 11/04/2023 9:53 AM 11/04/2023 Bandar Jules RN 11/03/2023 7:51 AM 11/04/2023 Bandar Jules RN 11/02/2023 8:00 AM 11/01/2023 MAHNAZ De La Cruz 11/01/2023 9:34 AM Waiting on IV Abx determination by ID. 11/02/2023 Taina Prieto RN 11/01/2023 9:23 AM 11/01/2023 Taina Prieto RN 10/31/2023 9:01 AM 10/30/2023 Ellyn De León MD 10/27/2023 10:04 PM Length of Stay (Days): 8 [facility] Plan of care note* Care Plan - Radha Mir RN - 11/04/2023 2:15 AM EDT The patient is Moderately Stable - Low risk of patient condition declining or worsening The patient's goals for the shift include To breath better The clinical goals for the shift include Pt safety [facility] [id number] Consult note* Katiuska Hill RD - 11/03/2023 5:25 PM EDT Associated Order(s): IP CONSULT TO DIETITIAN RD following [facility] [id number] Consult note* Katiuska Hill RD - 11/03/2023 5:25 PM EDT Associated Order(s): IP CONSULT TO DIETITIAN RD following * Jean Moser MD - 10/28/2023 2:07 PM EDTAssociated Order(s): IP CONSULT TO INFECTIOUS DISEASES Images from the original note were not included. [facility] - Infectious Diseases Attending Consult Note Reason for Consult: ?PNA with loculated effusion, on Meropenem History of Present Illness: 58 M, ECF resident after fall resulting in L1 injury and paraplegia, and with recent obstructive uropathy issues, clots form traumatic bartlett insertions leading to UTIs, most recent cultyure + ESBL- Ecoli form 10/15/23. Admitted to OSH 10/23 for hypoxic respiratory failure, on HFNC initially, assoiated cough- occasionally productive, and CT did show R infiltrated and loculated effusion. Started on broad spectrum antibiotics thered, and started to get better, down to 4 L NC. They attempted thoracentesis, unsuccessful and was transferred to [facility] for CTS evaluation, possible chest tube placement. He rported congestion from past month, attributed to allergies, denied choking on his food or sick conta cts. Viral PCR negative, Urinary Ags neg, BC negative at OSH. NKDA Past Medical History: History reviewed. No pertinent past medical history. Past Surgical History: History reviewed. No pertinent surgical history. Current Medications: Current Facility-Administered Medications Medication Dose Route Frequency Provider Last Rate Last Admin acetaminophen (Tylenol) tablet 650 mg 650 mg Oral q6h PRN Ellyn De León MD 650 mg at 10/27/23 2318 Or acetaminophen (Tylenol) suppository 650 mg 650 mg Rectal q6h PRN Ellyn De León MD albuterol (2.5 MG/3ML) 0.083% nebulizer solution 2.5 mg 2.5 mg Nebulization q4h PRN Ellyn De León MD amLODIPine (Norvasc) tablet 10 mg 10 mg Oral Daily Ellyn De León MD 10 mg at 10/28/23 1020 [Held by provider] apixaban (Eliquis) tablet 5 mg 5 mg Oral BID Ellyn De León MD carboxymethylcellulose PF (Refresh Plus) 0.5 % ophthalmic solution 1 drop 1 drop Both Eyes BID PRN Ellyn De León MD carvedilol (Coreg) tablet 12.5 mg 12.5 mg Oral BID Ellyn De León MD 12.5 mg at 10/28/23 1019 cetirizine (ZyrTEC) tablet 10 mg 10 mg Oral Daily Ellyn De León MD 10 mg at 10/28/23 1158 dextrose 5 % infusion 100 mL/hr IntraVENous PRN Ellyn De León MD dextrose 50 % solution 12.5 g 12.5 g IntraVENous PRN Ellyn De León MD gabapentin (Neurontin) capsule 100 mg 100 mg Oral BID Ellyn De León MD 100 mg at 10/28/23 1019 glucagon (human recombinant) injection 1 mg 1 mg IntraMUSCular PRN Ellyn De León MD glucose oral gel 15 g 15 g Oral PRN Ellyn De León MD guaiFENesin (Mucinex) 12 hr tablet 1,200 mg 1,200 mg Oral BID Ellyn De León MD 1,200 mg at 10/28/23 1025 insulin glargine (Lantus) injection 24 Units 24 Units SubCUTAneous q AM Ellyn De León MD 24 Units at10/28/23 1021 Insulin Lispro (Humalog) injection 0-6 Units 0-6 Units SubCUTAneous TID WC Ellyn De León MD 1 Units at 10/28/23 1159 And Insulin Lispro (Humalog) injection 0-6 Units 0-6 Units SubCUTAneous Nightly Ellyn De León MD 1 Unitsat 10/27/23 2318 melatonin tablet 6 mg 6 mg Oral Nightly Ellyn De León MD 6 mg at 10/27/23 2318 meropenem (Merrem) 2,000 mg in sodium chloride 0.9 % 100 mL IVPB 2,000 mg IntraVENous q8h Ellyn De León MD Stopped at 10/28/23 1318 methocarbamol (Robaxin) tablet 1,000 mg 1,000 mg Oral q8h PRN Ellyn De León MD 1,000 mg at 10/28/23 1024 morphine (MSIR) tablet 30 mg 30 mg Oral BID Ellyn De León MD 30 mg at 10/28/23 1019 naloxone (Narcan) injection 0.4 mg 0.4 mg IntraVENous q5 min PRN Helen Aldridge DO ondansetron ODT (Zofran-ODT) disintegrating tablet 4 mg 4 mg Oral q8h PRN Ellyn De León MD Or ondansetron (Zofran) injection 4 mg 4 mg IntraVENous q6h PRN Ellyn De León MD oxyCODONE (Roxicodone) immediate release tablet 10 mg 10 mg Oral q6h PRN Ellyn De León MD 10 mg at 10/28/23 1158 pantoprazole (ProtoNix) EC tablet 40 mg 40 mg Oral qAM AC Ellyn De León MD 40 mg at 10/28/23 0607 polyethylene glycol (PEG) 3350 (Miralax) packet 17 g 17 g Oral Daily PRN Ellyn De León MD senna-docusate sodium (Senokot-S) 8.6-50 MG tablet 2 tablet 2 tablet Oral Nightly Ellyn De León MD sodium chloride 0.9 % infusion 5-250 mL/hr IntraVENous PRN Ellyn De León MD sodium chloride 0.9% (NS) flush 5-40 mL 5-40 mL IntraVENous q12h Ellyn De León MD 10 mL at 10/28/23 1015 sodium chloride 0.9% (NS) flush 5-40 mL 5-40 mL IntraVENous PRN Ellyn De León MD vancomycin (Vancocin) 1750 mg in NS 500 mL IVPB (premix) 1,750 mg IntraVENous q12h Ellyn De León MD 1,750 mg at 10/28/23 1218 Allergies: No Known Allergies Social History: Social History Socioeconomic History Marital status: Single Spouse name: Not on file Number of children: Not on file Years of education: Not on file Highest education level: Not on file Occupational History Not on file Tobacco Use Smoking status: Not on file Smokeless tobacco: Not on file Substance and Sexual Activity Alcohol use: Not on file Drug use: Not on file Sexual activity: Not on file Other Topics Concern Not on file Social History Narrative Not on file Social Determinants of Health Financial Resource Strain: Not on file Food Insecurity: Not on file Transportation Needs: Not on file Physical Activity: Not on file Stress: Not on file Social Connections: Not on file Intimate Partner Violence: Not At Risk (10/28/2023) Humiliation, Afraid, Rape, and Kick questionnaire Fear of Current or Ex-Partner: No Emotionally Abused: No Physically Abused: No Sexually Abused: No Housing Stability: Not on file Family History: No family history on file. Review of Systems: Review of Systems Constitutional: Negative for chills, fatigue and fever. Respiratory: Positive for cough and shortness of breath. Cardiovascular: Negative for chest pain. Gastrointestinal: Negative. Genitourinary: Positive for difficulty urinating (recent CAUTI) and hematuria (resolved with cath changes). Negative for dysuria. Skin: Positive for wound (sacral decub ulcer- healing per patient). Negative for rash. Neurological: Positive for weakness (per HPI). Psychiatric/Behavioral: Negative. Vitals: Patient Vitals for the past 24 hrs: BP Temp Temp src Pulse Resp SpO2 Height Weight 10/28/23 1347 -- -- -- -- -- -- 1.702 m (5' 7) -- 10/28/23 1125 143/74 36.8 C (98.3 F) Temporal 92 16 96 % -- -- 10/28/23 0305 -- 36.9 C (98.4 F) Temporal -- -- -- -- -- 10/28/23 0305 132/76 -- -- 84 16 98 % -- (!) 142 kg (312 lb 11.2 oz) 10/28/23 0038 -- -- -- 88 -- (!) 88 % -- -- 10/27/23 2336 134/67 36.6 C (97.9 F) Temporal 96 18 (!) 88 % -- -- 10/27/23 2048 140/70 36.8 C (98.3 F) Temporal 95 20 90 % 1.702 m (5' 7) (!) 142 kg (312 lb 11.2 oz) Physical Exam: Physical Exam Vitals reviewed. Constitutional: General: He is not in acute distress. Appearance: He is obese. He is not ill-appearing or toxic-appearing. Eyes: General: No scleral icterus. Extraocular Movements: Extraocular movements intact. Cardiovascular: Rate and Rhythm: Normal rate and regular rhythm. Pulses: Normal pulses. Heart sounds: Normal heart sounds. No murmur heard. Pulmonary: Effort: Pulmonary effort is normal. No respiratory distress. Breath sounds: Normal breath sounds. No wheezing, rhonchi or rales (mild dec at R base). Abdominal: General: There is no distension. Palpations: Abdomen is soft. Tenderness: There is no abdominal tenderness. Genitourinary: Comments: Hidden penis, bartlett-clear yellow UOP Musculoskeletal: General: Signs of injury (wound not examined) present. No deformity (atrophy to both legs). Cervical back: Normal range of motion and neck supple. Lymphadenopathy: Cervical: No cervical adenopathy. Skin: Findings: No erythema or rash. Neurological: Mental Status: He is alert and oriented to person, place, and time. Motor: Weakness (to both legs) present. Psychiatric: Mood and Affect: Mood normal. Thought Content: Thought content normal. Labs: Recent Labs 10/27/23 2311 10/28/23 0436 NA 133* 134* K 4.4 4.1 CL 99 100 CO2 29 29 BUN 17 17 CREATININE 0.61* 0.56* GLUCOSE 154* 144* CALCIUM 8.3* 8.5 PROT 6.7 6.7 BILITOT 0.3 0.3 ALKPHOS 109 97 AST 31 32 ALT 15 15 Recent Labs 10/28/23 0436 WBC 7.9 HGB 7.8* HCT 28.4* PLT 430 Micro: No results for input(s): COVID19 in the last 72 hours. OSH records reviewed Lines: PIV Radiography/Echo/Other: reviewed CXR: IMPRESSION: 1. Bilateral infiltrates and effusions, right greater than left. 2. Prominence of the interstitium and central pulmonary vasculature consistent with mild to moderate congestive heart failure/fluid overload. Antimicrobials,Start/End Dates: Vancomycin,Meropenem d#4 Impression: 58 M admitted with RLL PNA, with effusion?loculated on imaging, unable to perform tohoracentesis atOSH, here for CTS evaluation. Clinically he is imprving on empiric tx. H/o recent CAUTI with ESBL- GNRs- from traumatic bartlett and clots, with bladder outlet obstruction symptoms- good UOP now Sacral decub ulcer- wound care for now H/o C auris + Urine culture, colonized, maintain on contact precautions. Chronic anemia Paraplegia secondary to fall DMT2 M obesity Overall HD stable, n ontoxic. Plan: DC vancomycin Switch to IV Ertapenem to cover ESBL GNR UTI, should also be adequate coverage for HAP. Duration atleast 1-2 weeks, given possible loculated effusion. Per CTS, if fluid reaccumulates, then consider thoracentesis. Consider Bronchoscopy if trapped lung presentation. Will follow. Based on diagnoses and management, combination of acute and chronic problems, exacerbations and/or acuity, this visit should be considered to be of moderate complexity. Total time 70 minutes on this day of encounter includes counseling, coordinating plan of care, record and documentation review before and after visit including documentation and time not explicitly included on EMR time stamp for accounting for open encounter. * Wolf Esquivel MD - 10/28/2023 1:32 PM EDTAssociated Order(s): Inpatient consult to Pulmonology PULMONOLOGY CONSULT NOTE 10/28/2023 1:33 PM Reason for consult: Pneumonia with reported mucous plugging Inpatient consult to Pulmonology Consult performed by: Wolf Esquivel MD Consult ordered by: Ellyn De León MD Subjective: Admit Date: 10/27/2023 PCP: ROCIO BARTLETT HPI: Melissa Elias is a 58 year old man with a history of paraplegia after spinal cord injury, sacral decubitus ulcer with history of osteomyelitis, pressure injuries, BATOOL, PE on Eliquis, DM2, chronicFoley who was transferred to [place] for loculated parapneumonic effusion on the right. Initially admitted to [place] 10/24, and treated with broad spectrum antibiotics Vanc/Merrem, CTA chest suggested pneumonia with a loculated right pleural effusion. Had negative urine strep pneumo/legionella and COVID/Flu/RSV. Thoracentesis was attempted but there was no amenable pocket for drainage. He was transferred to [facility] for CT Surgery evaluation. Labs here with WBC 7.9. He has been afebrile Patient reports he began feeling ill on Tuesday, endorses fever, chills, productive cough. He reports minimal pleuritic pain however. He reports since his fall he has had osteomyelitis s/p spinal surgery, as well as one other bout of pneumonia requiring simple thoracentesis. He says he is not usually on supplemental oxygen. Reports he is a never smoker. Has never had PFTs or seen a Personalized Living Manager. CXR today is notable for bilateral pleural effusions R > L, pulmonary vascular congestion. Assessment and Plan: Right lower lobe pneumonia with loculated pleural effusion Acute hypoxic respiratory failure secondary to above BATOOL Morbid obesity PE on Eliquis History of paraplegia after spinal cord injury; sacral decubitus ulcer with history of osteomyelitis Never smoker Presents with suspected pneumonia from outside hospital with right sided loculated pleural effusionwhich was not amenable to thoracentesis there. Transferred for CT surgery evaluation for considerations for drainage. He is on 4L NC at this time and in no distress. Appreciate CT surgery recommendations. Suspect IR guided chest tube with drainage will be necessary. Unable to see report or imaging from [place] - will attempt to obtain images from there. No indication for Bronchoscopy at this time. Check sputum culture, pneumonia PCR, and MRSA nares screening as well as procalcitonin Agree with autobipiap overnight and with naps Wolf Esquivel MD Fellow, Pulmonary and Critical Care Medicine Past Medical History: History reviewed. No pertinent past medical history. Past Surgical History: History reviewed. No pertinent surgical history. Allergies: No Known Allergies Social History: Social History Substance and Sexual Activity Alcohol Use None Social History Substance and Sexual Activity Drug Use Not on file Social History Tobacco Use Smoking Status Not on file Smokeless Tobacco Not on file Family History: No family history on file. Review of Systems Constitutional: Positive for fever. Negative for unexpected weight change. HENT: Negative for congestion, rhinorrhea and sore throat. Eyes: Negative for visual disturbance. Respiratory: Positive for cough and shortness of breath. Negative for wheezing. Cardiovascular: Negative for chest pain, palpitations and leg swelling. Gastrointestinal: Negative for abdominal pain and nausea. Musculoskeletal: Negative for arthralgias and myalgias. Skin: Negative for rash. Neurological: Negative for dizziness and light-headedness. Psychiatric/Behavioral: Negative for sleep disturbance. Medications: Scheduled Meds:amLODIPine, 10 mg, Oral, Daily [Held by provider] apixaban, 5 mg, Oral, BID carvedilol, 12.5 mg, Oral, BID WC cetirizine, 10 mg, Oral, Daily gabapentin, 100 mg, Oral, BID guaiFENesin, 1,200 mg, Oral, BID insulin glargine, 24 Units, SubCUTAneous, q AM insulin lispro, 0-6 Units, SubCUTAneous, TID WC And insulin lispro, 0-6 Units, SubCUTAneous, Nightly melatonin, 6 mg, Oral, Nightly meropenem, 2,000 mg, IntraVENous, q8h morphine, 30 mg, Oral, BID pantoprazole, 40 mg, Oral, qAM AC senna-docusate sodium, 2 tablet, Oral, Nightly sodium chloride 0.9%, 5-40 mL, IntraVENous, q12h vancomycin, 1,750 mg, IntraVENous, q12h Continuous Infusions: Data: [facility] within last 24 hours- BMP: Recent Labs 10/27/23 23110/28/23 0436 NA 133* 134* K 4.4 4.1 CL 99 100 CO2 29 29 BUN 17 17 CREATININE 0.61* 0.56* CALCIUM 8.3* 8.5 MG -- 1.9 LFTs: Recent Labs 10/27/23 2311 10/28/23 0436 AST 31 32 ALT 15 15 PROT 6.7 6.7 ALBUMIN 3.1* 3.0* BILITOT 0.3 0.3 ALKPHOS 109 97 Glucose: Recent Labs 10/27/23 2309 10/27/23 2311 10/28/23 0436 10/28/23 0814 10/28/23 1123 GLUCOSE -- 154* 144* -- -- POCGLU 180* -- -- 162* 176* Procal: No results for input(s): PROCAL in the last 72 hours. CBC: Recent Labs 10/28/236 WBC 7.9 HGB 7.8* HCT 28.4* PLT 430 MCV 76.3* RDW 19.4* ABGs: No results for input(s): PHART, IPL3BET, PO2ART, MZD4JVH, SO2ART, A4CXBCMB in thelast 72 hours. Lactic Acid: No results for input(s): LACTATE in the last 72 hours. INR: No results for input(s): INR in the last 72 hours. Cardiac Injury Profile: No results for input(s): CKTOTAL, CKMB, TROPONINI in the last 72 hours. Labs in Last 3 months: No results found for: TSH, VITD25, PSA, INR, GLUF Microbiology- Urine Cx: No results found for: URINECX Blood Cx: No results found for: BLOODCX Sputum Cx: No results found for: RESPCULT Gram Stain: No results found for: LABGRAM PNA PCR: No results found for: HUMANMETAPNE COVID19: No results found for: COVID19 Legionella Ag: No results found for: LEGIONELLAPN Strep Ag: No results for input(s): STREPPNEUMO in the last 72 hours. Imaging- CXR portable:Results for orders placed during the hospital encounter of 10/27/23 XR chest 1 view Narrative Patient Name: MELISSA ELIAS : 1965 Exam Date/Time: 10/28/2023 08:02 Procedure: XR CHEST 1 VIEW Ordering Provider: ALDRIDGE OLGA Reason For Exam: pneumonia with effusions CLINICAL INFORMATION: Shortness of breath. Pleural effusions. Portable view of the chest at 0755 hours is provided without comparison. FINDINGS: The heart size is normal. Bilateral infiltrates and effusions are noted, right greater than left. There is prominence of the interstitium and central pulmonary vasculature. Gan rods span the thoracolumbar junction. Impression 1. Bilateral infiltrates and effusions, right greater than left. 2. Prominence of the interstitium and central pulmonary vasculature consistent with mild to moderate congestive heart failure/fluid overload. Report Dictated on Electronically Signed By: Raphael Gonzales MD Electronically Signed Date/Time: 10/28/2023 9:01 AM EDT CXR (2V): No results found for this or any previous visit. CT Chest: No results found for this or any previous visit. CTA Chest: No results found for this or any previous visit. Other Studies: Reviewed and as per electronic record. CxR/CT images personally reviewed by me when available; salient findings summarized in A/P. Objective: Vitals: BP 143/74 (BP Location: Right arm, Patient Position: Lying) Pulse 92 Temp 36.8 C (98.3 F) (Temporal) Resp 16 Ht 5' 7 (1.702 m) Wt (!) 312 lb 11.2 oz (142 kg) SpO2 96% BMI 48.98kg/m Physical Exam Constitutional: General: He is not in acute distress. Appearance: Normal appearance. He is ill-appearing. He is not toxic-appearing. Comments: Lying in bed, chronically ill appearing HENT: Head: Normocephalic and atraumatic. Right Ear: External ear normal. Left Ear: External ear normal. Nose: Nose normal. Mouth/Throat: Mouth: Mucous membranes are moist. Pharynx: Oropharynx is clear. Eyes: Conjunctiva/sclera: Conjunctivae normal. Cardiovascular: Rate and Rhythm: Normal rate and regular rhythm. Pulses: Normal pulses. Heart sounds: Normal heart sounds. No murmur heard. No gallop. Pulmonary: Effort: Pulmonary effort is normal. No respiratory distress. Breath sounds: Normal breath sounds. No wheezing or rales. Abdominal: General: There is no distension. Musculoskeletal: Right lower leg: No edema. Left lower leg: No edema. Skin: Coloration: Skin is not jaundiced or pale. Neurological: General: No focal deficit present. Mental Status: He is alert and oriented to person, place, and time. Psychiatric: Mood and Affect: Mood normal. Behavior: Behavior normal. Associated attestation - Jd Peñaloza MD - 10/28/2023 3:20 PM EDT I have personally performed a [id number] diagnostic evaluation on this patient on date of service10/28/23. History, labs, imaging studies, and electronic medical record have been reviewed by me. This note documented by the [x]manager of warehouse []ALFONSO reflects my history, exam, and medical decision making. I have reviewed and agree with the care plan. Changes were made in the orders as necessary. ROSdocumentation was reviewed and negative unless otherwise stated in HPI. Additional pertinent interval history, ROS, and physical exam findings: Outside imaging unable to review reports of loculated effusion, no endobronchial mass, no adenopathy. Patient attempted a thoracentesis but was unable to be done due to small pocket Patient severely chronically ill. [facility] CTS note reviewed. CXR reviewed by me shows right pleural effusion. Assessment: Loculated right parapneumonia effusion Acute respiratory failure with hypoxia HAP BATOOL/OHS on BiPAP Severe morbid obesity BMI 50 Plan: Unable to review [facility] images, however no need for bronchoscopy at this time, no mention of mass, lobar atelectasis, mucous plugs or adenopathy. Small effusion nto amendable to thora, consider imaging guided pigtail and lytics if worsens. Patient poor candidate for any invasive procedures. IV abx. May just treat with abx and leav effusion alone. Will attempt to get [facility] records. * Nyasia Jin APRN - ANTHONY - 10/28/2023 8:47 AM EDT Images from the original note were not included. [facility] Wound/Ostomy CONSULT Note Melissa Elias AGE: 58 y.o. GENDER: male : 1965 Subjective: HISTORY of PRESENT ILLNESS HPI Melissa L Elias is a 58 y.o. male who presents for wound care and ostomy management. History Context: Hx significant for DMII, paraplegia, BATOOL, Hx of blood clots and resides at [facility]. (+) Chronic Bartlett, was recently found to have ESBL E coli UTI. Admitted 10/24 at [place] when he presented to ED for hypoxia and found to have pneumonia. Started on empiric Vancomycin/Merrem. Pt transferred to [facility] from [place] InPt for CT Surgical specialty assessment for drainageof effusions. Wound and ostomy care consulted for pressure injury and colostomy. PAST MEDICAL HISTORY History reviewed. No pertinent past medical history. PAST SURGICAL HISTORY History reviewed. No pertinent surgical history. FAMILY HISTORY No family history on file. SOCIAL HISTORY ALLERGIES No Known Allergies MEDICATIONS No current facility-administered medications on file prior to encounter. No current outpatient medications on file prior to encounter. REVIEW OF SYSTEMS Pertinent items are noted in HPI. Objective: BP 132/76 (BP Location: Right arm, Patient Position: Lying) Pulse 84 Temp 36.9 C (98.4 F) (Temporal) Resp 16 Ht 1.702 m (5' 7) Wt (!) 142 kg (312 lb 11.2 oz) SpO2 98% BMI 48.98 kg/m PHYSICAL EXAM General appearance: in no apparent distress, well developed and well nourished, non-toxic, in no respiratory distress and acyanotic, and alert, obese Skin: warm and dry Pulmonary: Normal effort, no respiratory distress, no cyanosis Abdomen: Colostomy to RLQ. Stoma pink and moist through pouch. Small firm stool in pouch. Pouch intact Sacrum: 20.0cmx30.cmx6.5cm. [place]/red granulation with yellow slough to base of wound. Pen aniya drain noted from left buttock to middle of sacrum ulcer. Moderate serosang drainage. Periwound fragile with excoriation. LABS CBC: Lab Results Component Value Date WBC 7.9 10/28/2023 HGB 7.8 (L) 10/28/2023 HCT 28.4 (L) 10/28/2023 MCV 76.3 (L) 10/28/2023 PLT 430 10/28/2023 BMP: Lab Results Component Value Date NA 133 (L) 10/27/2023 K 4.4 10/27/2023 CL 99 10/27/2023 CO2 29 10/27/2023 BUN 17 10/27/2023 CREATININE 0.61 (L) 10/27/2023 PT/INR: No results found for: PROTIME, INR Prealbumin: No results found for: PREALBUMIN Albumin:No components found for: LABALBU Sed Rate:No results found for: SEDRATE Micro: No components found for: BC Assessment/Plan: Sacrum: Pressure Injury (Stage 4) - Clean with NS, pack with NS moist Kerlix then cover with DCD BID and PRN - Envella bed - Reposition q2hrs - Incontinent check q2hrs Colostomy home going orders: - 2 05/19 pouch Bernarda: [id number] [place]: [id number] - 2 05/19 flange Bernarda: [id number] [place]: - Adapt ring Bernarda: [id number] [place]: [id number] - Skin prep Bernarda: [id number] Change pouch twice a week and PRN for leaking Empty pouch when 1/ to 1/ full and PRN Any questions or concerns please secure chat [facility] wound/ostomy. Thank you for the consult! I personally obtained the fournier and critical portions of the history and physical exam. I reviewed the labs, imaging studies, and electronic medical record. I reviewed the chart documentation and discussed the patient with treatment team members. I have edited the note to reflect my clinical findingsand my assessment and plan. Please note, the time of this note does not reflect the time I saw thispatient today, but the time of this documentaton. Portions of this note including HPI, ROS, impression/plan, and examination may have been copied forward from admission to today as to provide important historical information essential in contributing to medical decision making. Documentation has been reviewed and edited as necessary to support clinical decision making for today's visit and to reflect my own independent evaluation of this patient. Decision making for today's visit and to reflectmy own independent evaluation of this patient. * Margaret Dubois, RusselD - 10/27/2023 11:40 PM EDT Images from the original note were not included. Pharmacy Managed Vancomycin Dosing Service Consult Note Consult Date: 10/27/23 Patient Name: Melissa Elias Allergies: Patient has no known allergies. Age: 58 y.o. Sex: male Estimated body mass index is 48.98 kg/m as calculated from the following: Height as of this encounter: 1.702 m (5' 7). Weight as of this encounter: 142 kg (312 lb 11.2 oz). DW: 142 kg Lab Results Component Value Date CREATININE 0.61 (L) 10/27/2023 CREATININE 0.48 (L) 01/04/2023 BUN 17 10/27/2023 BUN 14 01/04/2023 WBC 8.7 01/04/2023 Calculated CrCl: 125 mL/min (Cockcroft-Gault) Consulted By: Ellyn De León Infectious Diagnosis: Pneumonia (HAP) (AUC Goal 400-600 mg/L*hr) Random Vancomycin Level Due: 10/29/23 Antimicrobials: Patient recently received an antibiotic (last 12 hours) None Assessment/Plan: Doses, serum creatinine, and vancomycin levels interfaced automatically to [employer] and data has been analyzed and interpreted. Start Vancomycin 2000 mg ONCE followed by vancomycin 1750 mg every 12 hours based on patient age, weight, renal function, and infectious diagnosis (12.3 mg/kg). Predicted AUC = 499 mg/L*hr (goal 400-600 mg/L*hr) PAUC = 85% (probability that AUC is >400 mg/L*hr) Pconc = 7% (probability that Ctrough is above 20 mcg/mL (toxicity)) Will assess random level on 10/29/23 and adjust as appropriate. Trend serum creatinine. Orders placed. Thank you for this consult. Please secure text or call with questions. DATE: 10/27/23 TIME: 11:39 PM Margaret Dubois PharmD Clinical Pharmacist Available via Secure Chat documented in this [facility]06-20-2024 History of Present illness Narrative* Katiuska Hill, RD - 11/03/2023 5:09 PM EDT Nutrition Assessment Type and Reason for Visit: Reassess, Consult (wounds) Nutrition Recommendations/Plan: Continue Adult diet Regular; Isolation Tray (Disposables); 4 carb choices (60 gm/meal) Supplement(s): Modified Ensure Juice TID to Chocolate Ensure Max Protein 1x/day (provides 150 kcals, 30 grams protein, 11 oz per serving) per MNT protocol as pt now off CLD. Will also send Wiliam (to provide 90 kcals, 14 g AA, 2.5 g Collagen, 300 mg Vitamin C, 9.5 mg Zinc - per packet) BID for woundhealing Please provide tray setup help, feeding assistance as needed Will continue to monitor labs, meds, po intakes and/or enteral nutrition tolerance, skin integrity,wt trends, and overall nutrition status - RD to follow weekly Malnutrition Assessment: Malnutrition Status: At risk for malnutrition (Comment) (PNA w/ loculated effusions not amendable to thora, CLD, Wound, UTI) Context: Acute Illness Findings of the 6 clinical characteristics of malnutrition: Energy Intake: 75% or less of estimated energy requirements for 7 or more days (CLD - pt started tofeel ill on Sunday 10/22) Weight Loss: Unable to assess (limited wt hx) Body Fat Loss: Unable to assess Muscle Mass Loss: Unable to assess Fluid Accumulation: Moderate to Severe Extremities Mine Deputy Strength: Not Performed Brief Hospital course: Melissa is a 58 y.o. male with past medical history below who presented to ED with healthcare acquired pneumonia. Hx significant for DMII, paraplegia, BATOOL, Hx of blood clots and resides at [facility]. (+) Chronic Bartlett, was recently found to have ESBL E coli UTI. Admitted 10/24 at [place] when he presented to ED for hypoxia and found to have pneumonia. Started on empiric Vancomycin/Merrem. Pt transferred to [facility] from [place] for CT Surgical specialty assessment for drainage of effusions. AdmitTED for further evaluation and management. - Transfer for Cardiothoracic surgical specialty assessment and drainage of loculations - Vanc/Merrem - reported allergy/intolerance to PCNs - Per documentation Ucx (+) for ESBL E coli, Klebiella and Proteus. Respiratory workup noted Covid/Influenza/RSV negative. Strep, Legionella negative. CT surgery seen the patient, recommends no acute surgical intervention at this time. Pulmonary consulted ID consulted Interval History: 11/02/2023-patient alert, chart reviewed, denies any complaints. Patient apparently has had gluteal drain placed in July and was recommended to have it removed in 60 days. 11/02 patient alert and conversant, we discussed discharge plan to SNF, lower extremity immobility, Atbx regimen with revision/titration per ID team. General improvement to systemic symptoms. No acutedistress or complaint aware of planned discharge disposition Nutrition Assessment: RD following for wound. 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. Has achronic Bartlett and colostomy. Recently found to have ESBL E coli UTI. Admitted 10/24 at [facility] when he presented to the ED for hypoxia. CTA suggestive of PNA w/ loculated right pleural effusion. Had negative urine strep pneumo/legionella and COVID/Flu/RSV. Thora attempted but there was no amenable pocket for drainage. Started on empiric vanc/merrem. T/fx to [facility] for CT surgical specialty assessment fordrainage of loculations. CTS eval'd pt, no surgical interventions at this time. Pulm eval'd for PNAw/ reported mucus plugging - no indication for bronch at this time. He is on 4L NC at this time. 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 ID managing ATB therapy. Tolerating diet. No surgical intervention needed to his chronic decub ulcers, and pnrose was dc'd by Surgery resident yesterday. Awaiting placement. Ertapenem to 11/13 planned. CLD advanced to regular on 10/27. Estimated Daily Nutrient Needs: Energy Requirements Based On: Kcal/kg Weight Used for Energy Requirements: Adjusted Weight for Energy Calculation (kg): 62.23 kg Total Energy Requirements (kcals/day): 8259-6994 (25-30 kcals/kg AIBW) Weight Used for Protein Requirements: Adjusted (AIBW for obesity) Weight in Kg Used for Protein Requirements: 62.23 kg Estimated Total Protein (g/day): 75-94 (1.2-1.5 g/kg AIBW) Estimated Daily Total Fluid (ml/day): 1 ml/kcal or per MD Nutrition Related Findings: Wound Type: (per wound care: Sacrum: Pressure Injury (Stage 4)) Isolation Status: none Food Allergies: [facility] Room Service: Selective Qamar Scale Score: 13 Net IO Since Admission: -14,860 mL [11/03/23 1725] BLE Edema: Moderate pitting, indentation subsides rapidly Bowel Sounds (All Quadrants): Active Nutrition History: Resides at [facility], Paraplegia, Colostomy, Chronic Bartlett Intake/Output Summary (Last 24 hours) at 11/03/2023 1725 Last data filed at 11/03/2023 1221 Gross per 24 hour Intake 520 ml Output 2600 ml Net -2080 ml Labs/Meds Reviewed: amLODIPine, 10 mg, Oral, Daily apixaban, 5 mg, Oral, BID carvedilol, 12.5 mg, Oral, BID WC cetirizine, 10 mg, Oral, Daily ertapenem, 1,000 mg, IntraVENous, q24h gabapentin, 100 mg, Oral, BID guaiFENesin, 1,200 mg, Oral, BID heparin flush, 250 Units, IntraCATHeter, q12h insulin glargine, 24 Units, SubCUTAneous, q AM insulin lispro, 0-6 Units, SubCUTAneous, TID WC And insulin lispro, 0-6 Units, SubCUTAneous, Nightly iron sucrose, 200 mg, IntraVENous, q24h melatonin, 6 mg, Oral, Nightly morphine CR, 30 mg, Oral, 2 times per day pantoprazole, 40 mg, Oral, qAM AC senna-docusate sodium, 2 tablet, Oral, Nightly sodium chloride 0.9%, 10 mL, IntraCATHeter, q12h sodium chloride 0.9%, 5-40 mL, IntraVENous, q12h PRN medications: acetaminophen OR acetaminophen, albuterol, carboxymethylcellulose PF, dextrose, dextrose, diphenhydrAMINE, glucagon (rDNA), glucose, heparin flush, methocarbamol, naloxone, ondansetron ODT OR ondansetron, oxyCODONE, polyethylene glycol (PEG) 3350, sodium chloride, sodium chloride 0.9%, sodium chloride 0.9% BMP: Recent Labs 11/01/231411/02/2362511/03/23 0259 NA 136 137 135 K 4.0 4.2 4.0 CL 101 101 99 CO2 31* 31* 31* BUN 11 14 13 CREATININE 0.53* 0.47* 0.58* GLUCOSE 167* 146* 214* CALCIUM 8.1* 8.4 8.1* HEPATIC: Recent Labs 11/01/231411/02/23 0626 11/03/23 0259 AST 23 19 27 ALT 13 13 14 BILITOT 0.5 0.4 0.3 ALKPHOS 84 82 96 CBC: Recent Labs 11/01/231411/02/2362511/03/23258 WBC 11.3* 9.2 11.8* HGB 7.3* 7.3* 7.2* HCT 26.9* 26.7* 27.3* MCV 74.1* 74.4* 75.2* PLT 467* 423 459* Lab Results Component Value Date HGBA1C 6.6 (H) 10/28/2023 Recent Labs 11/01/23 19511/02/23 0730 11/02/23 1116 11/02/23 1647 11/02/23200111/03/23 0755 11/03/23 1141 11/03/23 1700 POCGLU 210* 148* 219* 235* 150* 169* 233* 200* Current Nutrition Therapies: Adult diet Regular; Isolation Tray (Disposables); 4 carb choices (60 gm/meal) Current Oral Intake Average Meal Intake: 76-100% Average Supplements Intake: 76-100% Anthropometric Measures: Height: 170.2 cm (5' 7) Current Body Weight: 143 kg (315 lb) Weight Source: Bed Scale Admission Body Weight: 142 kg (312 lb) Usual Body Weight: 142 kg (312 lb) % Weight Change (Calculated): 0 [place] Body Weight (lbs) (Calculated): 148 lbs [place] Body Weight (Kg) (Calculated): 67 kg % [place] Body Weight (Calculated): 210.8 % BMI (kg/m2) (Calculated): 49.3 Weight Adjustment For: Paraplegia % Weight Adjustment: 7.5 - Paraplegia Total Adjusted Percentage (Calculated): 7.5 Adjusted [place] Body Weight (lbs) (Calculated): 136.9 lbs Adjusted [place] Body Weight (kg) (Calculated): 62.23 kg Adjusted BMI (kg/m2) (Calculated): 52.6 BMI Categories: Obese Class 3 (BMI 40.0 or greater) BMI (Calculated): 49.33 Weight: (!) 143 kg (315 lb 0.6 oz) Weight Method: Bed scale Weight History: Wt Readings from Last 20 Encounters: 11/03/23 (!) 143 kg (315 lb 0.6 oz) Nutrition Diagnosis: Increased nutrient needs related to increase demand for energy/nutrients as evidenced by wounds Inadequate oral intake related to acute injury/trauma as evidenced by NPO or clear liquid status due to medical condition, poor intake prior to admission Nutrition Interventions: Food and/or Nutrient Delivery: Continue Current Diet, Modify ONS Nutrition Education/Counseling: No recommendation at this time Coordination of Nutrition Care: Continue to monitor while inpatient Goals: Previous Goal Met: Progressing toward Goal(s) Goals: Meet at least 75% of estimated needs Nutrition Monitoring and Evaluation: Behavioral-Environmental Outcomes: None Identified Food/Nutrient Intake Outcomes: Diet Advancement/Tolerance, Supplement Intake Physical Signs/Symptoms Outcomes: Biochemical Data, Weight, Skin, Nutrition Focused Physical Findings, GI Status, Fluid Status or Edema, Hemodynamic Status, Chewing or Swallowing Discharge Planning: Too soon to determine Katiuska Hill MS, RD, LD Contact: or [employer] Chat (dial *[phone] from hospital phone) * Jean Moser MD - 11/03/2023 11:33 AM EDT [facility] - Infectious Diseases Attending Progress Note Subjective: No acute events- eating lunch, and reports less SOB, 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 No surgical intervention needed to his chronic decub ulcers, and anali was dc'd by Surgery resident yesterday. Voiding perfoley. Awaiting return to SNF. Objective: Vitals: Patient Vitals for the past 24 hrs: BP Temp Temp src Pulse Resp SpO2 Weight 11/03/23 0755 140/94 (!) 35.9 C (96.7 F) Temporal 81 18 99 % -- 11/03/23 0307 117/59 (!) 35.6 C (96.1 F) Temporal 84 18 94 % (!) 143 kg (315 lb 0.6 oz) 11/02/23 2313 140/69 (!) 35.9 C (96.6 F) Temporal 94 18 96 % -- 11/02/231999 127/63 36.7 C (98.1 F) Temporal 90 16 97 % -- 11/02/23 1516 132/65 (!) 35.9 C (96.6 F) 90 16 98 % -- Physical Exam Vitals reviewed. Constitutional: General: He is not in acute distress. Appearance: He is obese. He is not ill-appearing. Cardiovascular: Rate and Rhythm: Normal rate and regular rhythm. Pulses: Normal pulses. Heart sounds: Normal heart sounds. No murmur heard. Pulmonary: Effort: Pulmonary effort is normal. No respiratory distress. Breath sounds: Normal breath sounds. Abdominal: General: There is no distension. Palpations: Abdomen is soft. Tenderness: There is no abdominal tenderness (ostomy). Musculoskeletal: General: Signs of injury (decub ulcer not examined, but photo per WC/Surgery note reviewed) present. Skin: Findings: No erythema or rash. Neurological: Mental Status: He is alert. Motor: Weakness (to legs, with atrophy) present. Labs: Lab Results Component Value Date/Time NA 135 11/03/2023 0259 K 4.0 11/03/2023 025 CL 99 11/03/2023 025 CO2 31 (H) 11/03/2023 025 BUN 13 11/03/2023 025 CREATININE 0.58 (L) 11/03/2023 025 GLUCOSE 214 (H) 11/03/2023 025 CALCIUM 8.1 (L) 11/03/2023 025 PROT 6.6 11/03/2023 025 BILITOT 0.3 11/03/2023 025 ALKPHOS 96 11/03/2023 025 AST 27 11/03/2023 025 ALT 14 11/03/2023 025 PROCAL 0.31 (H) 10/28/2023 0436 Lab Results Component Value Date/Time WBC 11.8 (H) 11/03/2023 025 HGB 7.2 (L) 11/03/2023 0259 HCT 27.3 (L) 11/03/2023 0259 PLT 459 (H) 11/03/2023 0259 Micro: No resp cultures obtained Lines: PICC Ostomy bartlett Radiography/Echo/Other: reviewed Antimicrobials, Start/End Dates: Ertapenem to 11/13 planned Impression: 58 M admitted with RLL PNA, with effusion?loculated on imaging, [facility] here for [facility]. Clinically he is imprving on empiric tx. H/o recent CAUTI with ESBL- GNRs- from traumatic bartlett and clots, with bladder outlet obstruction symptoms- good UOP now Sacral decub ulcer- wound care for now- Surgery dc'd nagi drain, prior I+D 07/2023 [facility] admission H/o C auris + Urine culture, colonized, maintain on contact precautions. Chronic anemia Paraplegia secondary to fall DMT2 M obesity Overall HD stable, nontoxic. Plan: No new recommendations, OPAT order in place. OK to DC to ECF from ID. * Prince Bear MD - 11/03/2023 10:05 AM EDT Hospitalist Progress Note 11/03/2023 Subjective: Admit Date: 10/27/2023 PCP: ROCIO BARTLETT Room#: [id number] A Brief Hospital course: Melissa is a 58 y.o. male with past medical history below who presented to ED with healthcare acquired pneumonia. Hx significant for DMII, paraplegia, BATOOL, Hx of blood clots and resides at [facility] [place]. (+) Chronic Bartlett, was recently found to have ESBL E coli UTI. Admitted 10/24 at [place] when he presented to ED for hypoxia and found to have pneumonia. Started on empiric Vancomycin/Merrem. Pt transferred to [facility] from [place] for CT Surgical specialty assessment for drainage of effusions. AdmitTED for further evaluation and management. - Transfer for Cardiothoracic surgical specialty assessment and drainage of loculations - Vanc/Merrem - reported allergy/intolerance to PCNs - Per documentation Ucx (+) for ESBL E coli, Klebiella and Proteus. Respiratory workup noted Covid/Influenza/RSV negative. Strep, Legionella negative. CT surgery seen the patient, recommends no acute surgical intervention at this time. Pulmonary consulted ID consulted Interval History: 11/02/2023-patient alert, chart reviewed, denies any complaints. Patient apparently has had gluteal drain placed in July and was recommended to have it removed in 60 days. 11/02 patient alert and conversant, we discussed discharge plan to SNF, lower extremity immobility, Atbx regimen with revision/titration per ID team. General improvement to systemic symptoms. No acutedistress or complaint aware of planned discharge disposition Adult diet Regular; Isolation Tray (Disposables); 4 carb choices (60 gm/meal) 24HR INTAKE/OUTPUT: Intake/Output Summary (Last 24 hours) at 11/03/2023 1005 Last data filed at 11/03/2023 0600 Gross per 24 hour Intake 1410 ml Output 2800 ml Net -1390 ml LABS: CBC: Recent Labs 11/01/23 0015 11/02/23 0626 11/03/23 0259 WBC 11.3* 9.2 11.8* RBC 3.63* 3.59* 3.63* HGB 7.3* 7.3* 7.2* HCT 26.9* 26.7* 27.3* MCV 74.1* 74.4* 75.2* RDW 19.9* 19.8* 19.8* PLT 467* 423 459* BMP: Recent Labs 11/01/23 0015 11/02/23 0626 11/03/23 0259 NA 136 137 135 K 4.0 4.2 4.0 CL 101 101 99 CO2 31* 31* 31* BUN 11 14 13 CREATININE 0.53* 0.47* 0.58* GLUCOSE 167* 146* 214* CALCIUM 8.1* 8.4 8.1* ANIONGAP 3 5 5 LIVER PROFILE: Recent Labs 11/01/23 0015 11/02/23 0626 11/03/23 0259 AST 23 19 27 ALT 13 13 14 BILITOT 0.5 0.4 0.3 ALKPHOS 84 82 96 PROT 6.4 6.6 6.6 PT/INR: No results for input(s): PROTIME, INR in the last 72 hours. CARDIAC ENZYMES: No results for input(s): TROPONINI in the last 72 hours. Procalcitonin: No results found for: PROCAL COVID-19 PCR: No results for input(s): COVID19 in the last 72 hours. Objective: Vitals: BP 140/94 (BP Location: Left arm, Patient Position: Sitting) Pulse 81 Temp (!) 35.9 C (96.7 F) (Temporal) Resp 18 Ht 5' 7 (1.702 m) Wt (!) 315 lb 0.6 oz (143 kg) SpO2 99% BMI 49.34 kg/m Pulse Ox: SpO2 Av.2 % Min: 94 % Max: 99 % Supplemental O2: O2 Flow Rate (L/min): 4 L/min Physical Exam Constitutional: Appearance: He is obese. Eyes: Extraocular Movements: Extraocular movements intact. Cardiovascular: Rate and Rhythm: Normal rate and regular rhythm. Pulmonary: Effort: Pulmonary effort is normal. Abdominal: Palpations: Abdomen is soft. Neurological: Mental Status: He is alert and oriented to person, place, and time. Mental status is at baseline. Psychiatric: Mood and Affect: Mood normal. Behavior: Behavior normal. Medications: Scheduled PRN amLODIPine, 10 mg, Oral, Daily apixaban, 5 mg, Oral, BID carvedilol, 12.5 mg, Oral, BID WC cetirizine, 10 mg, Oral, Daily ertapenem, 1,000 mg, IntraVENous, q24h gabapentin, 100 mg, Oral, BID guaiFENesin, 1,200 mg, Oral, BID heparin flush, 250 Units, IntraCATHeter, q12h insulin glargine, 24 Units, SubCUTAneous, q AM insulin lispro, 0-6 Units, SubCUTAneous, TID WC And insulin lispro, 0-6 Units, SubCUTAneous, Nightly melatonin, 6 mg, Oral, Nightly morphine CR, 30 mg, Oral, 2 times per day pantoprazole, 40 mg, Oral, qAM AC senna-docusate sodium, 2 tablet, Oral, Nightly sodium chloride 0.9%, 10 mL, IntraCATHeter, q12h sodium chloride 0.9%, 5-40 mL, IntraVENous, q12h PRN medications: acetaminophen OR acetaminophen, albuterol, carboxymethylcellulose PF, dextrose, dextrose, diphenhydrAMINE, glucagon (rDNA), glucose, heparin flush, methocarbamol, naloxone, ondansetron ODT OR ondansetron, oxyCODONE, polyethylene glycol (PEG) 3350, sodium chloride, sodium chloride 0.9%, sodium chloride 0.9% Continuous Assessment Data: (CAT1) Reviewed 3 or more notes from different specialty or health system (each=1). (CAT1) Reviewed 3 or more labs/studies ordered by another provider not previously counted (each=1, panels count as 1). (LOW: 2x CAT1 or independent historian MOD: 3x CAT1 or 1x CAT3 EXTENSIVE: 3x CAT1 and 1x CAT3) Acute, acute on chronic, unstable/uncontrolled chronic problems/diagnoses: Healthcare Acquired Pneumonia Complicated Urinary Tract Infection Acute respiratory failure with hypoxia 2/2 above Chronic sacral pressure ulcer Acute on chronic anemia Stable chronic problems affecting care, new non-acute diagnoses: Diabetes Mellitus BATOOL on BiPAP Chronic Pain 4. Paraplegia hemiparesis 5. Morbidly obese with BMI >49.3 6. T2DM 7. Hx of Bilateral PE 8. Hx of sepsis with rhabdomyolysis 9. ANTOLIN 10. Unspecified heart failure Plan As a result of the above findings & factors, the following mgmt was pursued: -No intervention per CT surgery and no need for bronchoscopy at this time per pulmonary -Follow-up with ID, continue current antibiotics, PICC line in place -ANTOLIN microcytic anemia with notable low hemoglobin and hx iron malabsorption -replace via IV venofer acute -Consulted general surgery regarding drain and removal(removed) -H&H trending down, monitor and transfuse if less than 7 -Continue Eliquis, monitor H&H - Supplemental O2 as needed to maintain SpO2 >90% -Continue current medications -Wound care following - DVT prophylaxis: SCDs and encourage ambulation Complexity: Acute illness or injury posing a threat to life or body function (HIGH). Chronic illness with severe exacerbation, progression, or side effect of tx (HIGH). Multiple stable chronic illnesses (MOD). Risk: Admission to hospital-level care was considered or occurred (HIGH). Prescription drug/IVF/colloid was initiated, discontinued, adjusted; or reviewed with decision to maintain current orders (MOD). Consult to surgery for major surgery, or minor surgery with identified patient or procedural risk factors, was considered or occurred (MOD). Advance Directive: Full Code Anticipated Discharge - Date - pending auth approval - Location - Skilled Facility, ip rehab - Pending the following - Authorization, final abx regimen, medical stability, Total time spent (which include face to face and non face to face encounters) : 50 minutes. Extended Emergency Contact Information Primary Emergency Contact: Marci Elias Mobile Relation: Mother Preferred language: German Grab Jack Man needed? No Secondary Emergency Contact: Aletha Brasher Mobile Relation: Sibling Preferred language: German Prince Bear MD Division of Hospitalist Medicine Inpatient Medical Services/[facility] [place] * SAQIB Messina - 11/03/2023 8:56 AM EDT Images from the original note were not included. OCCUPATIONAL THERAPY [facility] Treatment Note Name/MRN: Melissa Elias ([id number]) Date of : 1965 Age: 58 y.o. Room/Bed: [facility] A Discharge Recommendation: Usp Facility Other: tbd next level care Prior Level of Function ADL Assistance: Needs Assist Ambulation Assistance: Device(s) used: wheelchair - manual and kelli Non-Ambulatory Transfer Assistance: Needs Assist Assessment Currently, Pt required MAX A x 2 for all aspects of bed mobility. Pt declined EOB activity d/t severe pain in thoracic and lumbosacral regions- despite encouragement and education. Pt required SUP after set up for grooming task at bed level. Pt required MOD A UB ADL and DEP for LB ADL. Pt required DEP for all aspects of anterior and posterior hygiene d/t body habitus. Pt is limited by decreased functional endurance, pain, & decreased tolerance for EOB activity hindering indep and safety with functional tasks. Recommending SNF upon discharge in order to achieve highest level of function. Subjective Pt reclined in bed upon entry. RN approved of therapy. Pt reports pain in thoracic and lumbosacral regions 02/22- RN notified of such. Pt cooperative and agreeable to OT TX. Pt stated I'm hopeful that after my lungs clear up I can get a shower! CERRATO/L requested a bariatric recliner chair to encourage OOB activity- Pt receptive. Pain: 0-10 pain scale: 10/10 Location: thoracic & lumbosacral regions Medical Precautions: Contact Proper PPE donned/doffed in accordance with facility standards. Fall Risk: Sarabia Fall Risk Score: 60 (High Risk) Precautions/Restrictions: contact precautions, bartlett, 4 L of o2, & Skin Family/Caregiver Present: none Objective ADLs Grooming: Supervision, after setup- to wash face, neck and hands and perform oral hygiene with set up assist to open toothpaste cap d/t decreased FMC. LE Bathing: Max Assist- physical assist to reach below thighs- educated on use of LHS to increase indep and safety of task. UE Dressing: Contact Guard- touch assist to thread RUE into sleeve of gown and tactile cues to pullup to shoulder level. LE Dressing: Dependent- to isidro/ doff gripper socks- Pt requested to doff at the EOS d/t being toowarm Toileting: Max Assist, x2 Person Assist- for bartlett care and assist rolling side to side Bed Mobility Rolling to right: Max Assist, x2 Person Assist- physical assist and tactile cues for sequencing Rolling to left: Max Assist, x2 Person Assist Scooting: Max Assist, x2 Person Assist- with bottom half of bed elevated Pt able to pull self up towards HOB with tactile cues for hand placement & physical assist with use of glide sheet Exercise Comment: AROM BUE in all available joints and planes 10 x 2 reps to promote ROM, strength and endurance for increased indep with self care tasks + tactile cues for proper form and PLB technique with rest periods between each set. Plan Continue acute OT per plan of care. Safety/Education Safety Safety Devices in place: All fall risk precautions in place, call light within reach, left in bed, bed alarm in place, and nurse notified Restraints: No Education Education Given To: patient Education Provided: OT Role, Plan of Care, Home Exercise Program, ADL Adaptive Strategies, TransferTraining, Energy Conservation, Orientation, Discharge Recommendations, Benefits of Increasing Activity, and Breathing Techniques Education Method: Verbal, Demonstration, and Teach Back Barriers to Learning: Lack of Family/Social Support Education Outcome: Verbalized Understanding and Continued Education Needed AM-PAC AM-PAC Inpatient Daily Activity Raw Score: 13 ADL Inpatient CMS G-Code Modifier: CL Goals Patient Stated Goal: Return to SNF Encounter Problems Encounter Problems (Active) Balance Patient will maintain static sitting balance for 3+ minutes with max assist in order to demonstrateimproved postural control and prepare for out of bed mobility. (Not Addressed) Start: 11/01/23 Goal Note Pt declined EOB activity d/t severe pain 10/10 in thoracic and lumbosacral regions- repositioned for comfort with pillows under sacrum and to promote skin integrity. Transfers Patient will complete functional transfer with least restrictive device with max assist in order toprepare for ambulation. (Not Addressed) Start: 11/01/23 Patient will perform bed mobility with max assist in order to improve independence and prepare for out of bed mobility. (Slowly Progressing) Start: 11/01/23 Therapy Time Individual Co-treatment Time In 0801 Time Out 0847 Minutes 46 Timed Code Treatment Minutes: 46 Minutes (2-ADL; 1- FUNCT ACT) SAQIB Messina * Palmira Marc - 11/02/2023 2:42 PM EDT Images from the original note were not included. PHYSICAL THERAPY [facility] Treatment Note Name/MRN: Melissa Elias ([id number]) Date of : 1965 Age: 58 y.o. Room[facility]Bed: [facility] A Discharge Recommendation: Usp Facility Equipment Needed: No Other: TBD Prior Level of Function ADL Assistance: Needs Assist Ambulation Assistance: Needs Assistance Transfer Assistance: Needs Assist Assessment Pt is progressing with bed mobility goal showing increased use of UE to pull self this date. Pt still requires a Max X2 assist for rolling but was able to support self when laying on his side. RN wasable to perform wound care during bed mobility. Pt has deficits in strength, endurance, and tolerance to exercise. Pt would benefit from skilled therapy to address these deficits and improve functional mobility. PT recommends discharge to a SNF. Subjective Pt was in bed and agreeable to PT. Pain: Pt denies any current pain. Medical Precautions: Contact Proper PPE donned/doffed in accordance with facility standards. Fall Risk: Sarabia Fall Risk Score: 35 (Medium Risk) Precautions/Restrictions: contact precautions Lines/Drains/Airways: 4 Liters O2 via NC, tele, IV, FC Overall Cognitive Status: WNL Overall Orientation Status: Oriented x4 Family/Caregiver Present: none Objective Bed Mobility Supine to sit: Max Assist, x2 Person Assist Sit to supine: Max Assist, x2 Person Assist Plan Continue acute PT per plan of care. Safety/Education Safety Safety Devices in place: call light within reach, left in bed, and nurse notified Restraints: No Education Education Given To: patient Education Provided: PT Role, PT Goals, Gait Training, and Plan of Care Education Method: Verbal Barriers to Learning: None Education Outcome: Verbalized Understanding Outcome Measures AM-PAC AM-PAC Inpatient Mobility Raw Score (No Stairs) : 7 JH-HLM JH-HLM Score: Bed activity Goals Patient Stated Goal: To feel better. Encounter Problems Encounter Problems (Active) Balance Patient will maintain static sitting balance for 2 minutes with max assist in order to demonstrate improved postural control and prepare for out of bed mobility. (Progressing) Start: 10/31/23 Expected End: 11/14/23 Transfers Patient will perform bed mobility with max assist in order to improve independence and prepare for out of bed mobility. (Progressing) Start: 10/31/23 Expected End: 11/14/23 Patient will complete functional transfer with least restrictive device with max assist in order toprepare for ambulation. (Progressing) Start: 10/31/23 Expected End: 11/14/23 Therapy Time Individual Co-treatment Time In 1353 Time Out 1424 Minutes 31 Timed Code Treatment Minutes: 21 Minutes Variance: 10 (Wound Care) Palmira Marc * Pedro Taylor MD - 11/02/2023 2:02 PM EDT Hospitalist Progress Note 11/02/2023 Subjective: Admit Date: 10/27/2023 PCP: ROCIO BARTLETT Room#: [id number] A Brief Hospital course: Melissa is a 58 y.o. male with past medical history below who presented to ED with healthcare acquired pneumonia. Hx significant for DMII, paraplegia, BATOOL, Hx of blood clots and resides at [facility] [place]. (+) Chronic Bartlett, was recently found to have ESBL E coli UTI. Admitted 10/24 at [place] when he presented to ED for hypoxia and found to have pneumonia. Started on empiric Vancomycin/Merrem. Pt transferred to [facility] from [place] for CT Surgical specialty assessment for drainage of effusions. AdmitTED for further evaluation and management. - Transfer for Cardiothoracic surgical specialty assessment and drainage of loculations - Vanc/Merrem - reported allergy/intolerance to PCNs - Per documentation Ucx (+) for ESBL E coli, Klebiella and Proteus. Respiratory workup noted Covid/Influenza/RSV negative. Strep, Legionella negative. CT surgery seen the patient, recommends no acute surgical intervention at this time. Pulmonary consulted ID consulted Interval History: 11/02/2023-patient alert, chart reviewed, denies any complaints. Patient apparently has had gluteal drain placed in July and was recommended to have it removed in 60 days. Adult diet Regular; Isolation Tray (Disposables); 4 carb choices (60 gm/meal) 24HR INTAKE/OUTPUT: Intake/Output Summary (Last 24 hours) at 11/02/2023 1402 Last data filed at 11/02/2023 1115 Gross per 24 hour Intake 940 ml Output 2250 ml Net -1310 ml LABS: CBC: Recent Labs 10/31/2321011/01/23 0015 11/02/23 0626 WBC 9.3 11.3* 9.2 RBC 3.80* 3.63* 3.59* HGB 7.7* 7.3* 7.3* HCT 28.4* 26.9* 26.7* MCV 74.7* 74.1* 74.4* RDW 19.9* 19.9* 19.8* PLT 486* 467* 423 BMP: Recent Labs 10/31/23 02111/01/23 0015 11/02/23 0626 NA 136 136 137 K 3.9 4.0 4.2 CL 102 101 101 CO2 29 31* 31* BUN 12 11 14 CREATININE 0.60* 0.53* 0.47* GLUCOSE 207* 167* 146* CALCIUM 8.3* 8.1* 8.4 ANIONGAP 5 3 5 LIVER PROFILE: Recent Labs 10/31/23 02111/01/23 0015 11/02/23 0626 AST 19 23 19 ALT 14 13 13 BILITOT 0.3 0.5 0.4 ALKPHOS 87 84 82 PROT 6.5 6.4 6.6 PT/INR: No results for input(s): PROTIME, INR in the last 72 hours. CARDIAC ENZYMES: No results for input(s): TROPONINI in the last 72 hours. Procalcitonin: No results found for: PROCAL COVID-19 PCR: No results for input(s): COVID19 in the last 72 hours. Objective: Vitals: BP 119/76 (BP Location: Left arm, Patient Position: Sitting) Pulse 88 Temp 36.2 C (97.1F) (Temporal) Resp 16 Ht 5' 7 (1.702 m) Wt (!) 309 lb 12.8 oz (141 kg) SpO2 99% BMI 48.52 kg/m Pulse Ox: SpO2 Av.1 % Min: 93 % Max: 99 % Supplemental O2: O2 Flow Rate (L/min): 4 L/min Physical Exam Cardiovascular: Rate and Rhythm: Normal rate and regular rhythm. Pulmonary: Effort: Pulmonary effort is normal. Abdominal: Palpations: Abdomen is soft. Neurological: Mental Status: He is alert and oriented to person, place, and time. Mental status is at baseline. Medications: Scheduled PRN amLODIPine, 10 mg, Oral, Daily apixaban, 5 mg, Oral, BID carvedilol, 12.5 mg, Oral, BID WC cetirizine, 10 mg, Oral, Daily ertapenem, 1,000 mg, IntraVENous, q24h gabapentin, 100 mg, Oral, BID guaiFENesin, 1,200 mg, Oral, BID heparin flush, 250 Units, IntraCATHeter, q12h insulin glargine, 24 Units, SubCUTAneous, q AM insulin lispro, 0-6 Units, SubCUTAneous, TID WC And insulin lispro, 0-6 Units, SubCUTAneous, Nightly melatonin, 6 mg, Oral, Nightly morphine CR, 30 mg, Oral, 2 times per day pantoprazole, 40 mg, Oral, qAM AC senna-docusate sodium, 2 tablet, Oral, Nightly sodium chloride 0.9%, 10 mL, IntraCATHeter, q12h sodium chloride 0.9%, 5-40 mL, IntraVENous, q12h PRN medications: acetaminophen OR acetaminophen, albuterol, carboxymethylcellulose PF, dextrose, dextrose, diphenhydrAMINE, glucagon (rDNA), glucose, heparin flush, methocarbamol, naloxone, ondansetron ODT OR ondansetron, oxyCODONE, polyethylene glycol (PEG) 3350, sodium chloride, sodium chloride 0.9%, sodium chloride 0.9% Continuous Assessment Acute, acute on chronic, unstable/uncontrolled chronic problems/diagnoses: Healthcare Acquired Pneumonia Complicated Urinary Tract Infection Acute on chronic anemia Stable chronic problems affecting care, new non-acute diagnoses: Diabetes Mellitus BATOOL on BiPAP Chronic Pain 4. Paraplegia Plan As a result of the above findings & factors, the following mgmt was pursued: -No intervention per CT surgery and no need for bronchoscopy at this time per pulmonary -Follow-up with ID, continue current antibiotics, PICC line in place -Consult general surgery for drain removal -H&H trending down, monitor and transfuse if less than 7 -Continue Eliquis, monitor H&H - Supplemental O2 as needed to maintain SpO2 >90% -Continue current medications -Wound care following - DVT prophylaxis: SCDs and encourage ambulation Complexity: Acute illness or injury posing a threat to life or body function (HIGH). Risk: Advance Directive: Full Code Anticipated Discharge - Date -TBD - Location -TBD - Pending the following -surgery evaluation, placement Total time spent (which include face to face and non face to face encounters) : minutes Extended Emergency Contact Information Primary Emergency Contact: Marci Elias Mobile Relation: Mother Preferred language: German Grab Jack Man needed? No Secondary Emergency Contact: Aletha Brasher Mobile Relation: Sibling Preferred language: German Pedro Velasquez MD Division of Hospitalist Medicine Inpatient Medical Services/[facility] [place] * Jean Moser MD - 11/02/2023 11:10 AM EDT [facility] - Infectious Diseases Attending Progress Note Subjective: No acute events- afebrile, denies cough or SOB now. Surgery resident in to assess sacral decubitus ulcer. Objective: Vitals: Patient Vitals for the past 24 hrs: BP Temp Temp src Pulse Resp SpO2 Weight 11/02/23 0727 129/64 (!) 35.9 C (96.7 F) Temporal 77 18 94 % -- 11/02/23 0315 140/65 36.1 C (97 F) Temporal 80 17 93 % (!) 141 kg (309 lb 12.8 oz) 11/01/23 2303 128/64 (!) 35.9 C (96.6 F) Temporal 88 18 93 % -- 11/01/23 1954 134/60 36.9 C (98.4 F) Temporal 54 17 97 % -- 11/01/23 1551 147/71 (!) 35.9 C (96.6 F) Temporal 87 16 94 % -- 11/01/23 1414 -- -- -- 89 20 96 % -- Physical Exam Vitals reviewed. Constitutional: Appearance: Normal appearance. He is obese. He is ill-appearing. Pulmonary: Effort: Pulmonary effort is normal. Neurological: Mental Status: He is alert. Rest of exam deferred Labs: Lab Results Component Value Date/Time NA 137 11/02/2023 0626 K 4.2 11/02/2023 0626 CL 101 11/02/2023 0626 CO2 31 (H) 11/02/2023 0626 BUN 14 11/02/2023 0626 CREATININE 0.47 (L) 11/02/2023 0626 GLUCOSE 146 (H) 11/02/2023 0626 CALCIUM 8.4 11/02/2023 0626 PROT 6.6 11/02/2023 0626 BILITOT 0.4 11/02/2023 0626 ALKPHOS 82 11/02/2023 0626 AST 19 11/02/2023 0626 ALT 13 11/02/2023 0626 PROCAL 0.31 (H) 10/28/2023 0436 Lab Results Component Value Date/Time WBC 9.2 11/02/2023 0626 HGB 7.3 (L) 11/02/2023 0626 HCT 26.7 (L) 11/02/2023 0626 PLT 423 11/02/2023 0626 Micro: reviewed SA PCR: neg No respiratory culture obtained Lines: PICC 10/30, Ostomy bartlett Radiography/Echo/Other: reviewed 11/01 CXR: pending 10/31 CXR: Impression: 1. Mild progression of right lower lobe infiltrate and effusion. 2. Prominence of the central pulmonary vasculature consistent with moderate congestive heart failure/fluid overload. Antimicrobials, Start/End Dates: Meropenem Impression: 58 M admitted with RLL PNA, with effusion?loculated on imaging, unable to perform thhoracentesis atOSH, here for CTS evaluation. Clinically he is imprving on empiric tx. H/o recent CAUTI with ESBL- GNRs- from traumatic bartlett and clots, with bladder outlet obstruction symptoms- good UOP now Sacral decub ulcer- wound care for now- Surgery to asess H/o C auris + Urine culture, colonized, maintain on contact precautions. Chronic anemia Paraplegia secondary to fall DMT2 M obesity Overall HD stable, nontoxic. Plan: Continue empiric antibiotic to treat for total 3 week course. OPAT order in chart. OK to DC to ECF from ID. * Evon Justin OT - 11/01/2023 2:16 PM EDT Images from the original note were not included. OCCUPATIONAL THERAPY [facility] Initial Evaluation Name/MRN: Melissa Elias ([id number]) Evaluation Date: 11/01/2023 Date of : 1965 Admission Date: 10/27/2023 5:00 PM Age: 58 y.o. [facility] Discharge Recommendation: Usp Facility Other: tbd next level care Assessment IMPRESSION: Pt admit with pneumonia. Pt from SNF, baseline paralysis from waist down and has not sat EOB in several months. Pt receiving therapy at SNF and working on cones and rings per pt report.Pt able to complete self-care routine at bed level and demo's bilat tremors with intentional movements. Recommend SNF level therapies upon discharge to maximize functional independence Performance Deficits /Impairments: Decreased Functional Mobility, Decreased ADL status, Decreased Endurance, Decreased Sensation, Decreased Balance, Decreased High Level IADLs, Decreased Coordination, and Decreased Posture Prognosis: Good Decision Making: Medium Complexity Subjective Pt in bed upon OT arrival. Recently finished lunch tray Pain: RN managing pain. Past Medical History: History reviewed. No pertinent past medical history. Past Surgical History: History reviewed. No pertinent surgical history. Admission Diagnosis: Patient Active Problem List Diagnosis Date Noted Pneumonia, bacterial 10/27/2023 Decubitus ulcer of left ischium, stage 3 ([facility]) 08/01/2023 Sacral wound 08/01/2023 Skin ulcer of multiple sites of lower extremity, limited to breakdown of skin ([facility]) 08/01/2023 Pressure injury of buttock, unstageable ([facility]) 02/25/2023 Morbid obesity ([facility]) 02/08/2023 Pressure injury of skin of sacral region 02/08/2023 Type 2 diabetes mellitus with hyperglycemia ([facility]) 02/08/2023 Pressure injury of left heel, unstageable ([facility]) 02/07/2023 Bilateral pulmonary embolism ([facility]) 02/06/2023 Iron deficiency anemia 02/06/2023 Pressure injury of right buttock, stage 4 ([facility]) 02/06/2023 Heart failure, unspecified ([facility]) 12/14/2022 Retention of urine, unspecified 12/14/2022 Wedge compression fracture of t9-t10 vertebra, sequela 12/14/2022 Paraplegia ([facility]) 12/06/2022 Aspiration pneumonitis (CMS/HCC) ([facility]) 12/05/2022 Venous stasis ulcer of lower extremity ([facility]) 12/02/2022 BATOOL (obstructive sleep apnea) 11/29/2022 Spinal stenosis 11/18/2022 Traumatic edema of thoracic spinal cord ([facility]) 11/18/2022 Controlled type 2 diabetes mellitus without complication ([facility]) 11/17/2022 Osteomyelitis of lumbar spine ([facility]) 02/16/2017 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 Fall Risk: Sarabia Fall Risk Score: 35 (Medium Risk) Precautions/Restrictions: contact precautions Family/Caregiver Present: none Overall Cognitive Status: WFL Overall Orientation Status: Oriented x4 Social/Functional History Patient admitted from SNF. Assistive Equipment: none Prior Level of Function ADL Assistance: Needs Assist Ambulation Assistance: Device(s) used: wheelchair - manual and kelli Non-Ambulatory Transfer Assistance: Needs Assist Objective ADLs Grooming: Independent, after setup setup at bed level d/t mobility limitations, setup to open containers Upper Extremity Assessment AROM: WFL PROM: WFL Strength: Exceptions: Grossly diminished, functional grossly throughout with exception to fine motor manipulation to open containers Vision: no visual deficits Hearing: normal Bed Mobility Per EMR, pt is MAX x 2 to dependent x 2 for all bed mobility Transfers/Functional Mobility NT Device(s) used: AM-PAC AM-PAC Inpatient Daily Activity Raw Score: 12 ADL Inpatient CMS G-Code Modifier: CL Plan Pt would benefit from skilled acute OT services to address Balance Training, Functional Mobility Training, Endurance Training, Wheelchair Mobility Training, Pain Management, Safety Education and Training, Patient/Caregiver Training, Equipment Evaluation/Education, Self-Care/ADL Training, and Home Management Training. Frequency: 3x/week during current hospital admission or until additional recommendations are made Barriers: Lower extremity weakness and Long standing deficits Prognosis: good Safety/Education Safety Safety Devices in place: call light within reach, left in bed, nurse notified, and no alarms engaged upon entry Restraints: No Education Education Given To: patient Education Provided: OT Role, Plan of Care, Discharge Recommendations, and Benefits of Increasing Activity Education Method: Verbal Barriers to Learning: None Education Outcome: Verbalized Understanding Goals Patient Stated Goal: Return to SNF Encounter Problems Encounter Problems (Active) Balance Patient will maintain static sitting balance for 3+ minutes with max assist in order to demonstrateimproved postural control and prepare for out of bed mobility. Start: 11/01/23 Transfers Patient will complete functional transfer with least restrictive device with max assist in order toprepare for ambulation. Start: 11/01/23 Patient will perform bed mobility with max assist in order to improve independence and prepare for out of bed mobility. Start: 11/01/23 Therapy Time Individual Co-treatment Time In 1353 Time Out 1408 Minutes 15 Evon Justin OT Patient's Occupational Therapy Plan of Care supervision is transferred to a [facility] Therapy Services Occupational Therapist. Goals and/or treatment plan was established in collaboration with patient/family/other representatives. * Pedro Taylor MD - 11/01/2023 1:58 PM EDT Hospitalist Progress Note 11/01/2023 Subjective: Admit Date: 10/27/2023 PCP: ROCIO BARTLETT Room#: [id number] A Brief Hospital course: Melissa is a 58 y.o. male with past medical history below who presented to ED with healthcare acquired pneumonia. Hx significant for DMII, paraplegia, BATOOL, Hx of blood clots and resides at [facility]. (+) Chronic Bartlett, was recently found to have ESBL E coli UTI. Admitted 10/24 at [place] when he presented to ED for hypoxia and found to have pneumonia. Started on empiric Vancomycin/Merrem. Pt transferred to [facility] from [place] for CT Surgical specialty assessment for drainage of effusions. AdmitTED for further evaluation and management. - Transfer for Cardiothoracic surgical specialty assessment and drainage of loculations - Vanc/Merrem - reported allergy/intolerance to PCNs - Per documentation Ucx (+) for ESBL E coli, Klebiella and Proteus. Respiratory workup noted Covid/Influenza/RSV negative. Strep, Legionella negative. CT surgery seen the patient, recommends no acute surgical intervention at this time. Pulmonary consulted ID consulted Interval History: 11/01/2023-patient alert, chart reviewed, overall feeling better, PICC line in place. Discussed withnursing staff. Patient wants his gluteal drain removed. Adult diet Regular; Isolation Tray (Disposables); 4 carb choices (60 gm/meal) 24HR INTAKE/OUTPUT: Intake/Output Summary (Last 24 hours) at 11/01/2023 1358 Last data filed at 11/01/2023 1101 Gross per 24 hour Intake 220 ml Output 2900 ml Net -2680 ml LABS: CBC: Recent Labs 10/30/23 0337 10/31/23 0211 11/01/23 0015 WBC 8.8 9.3 11.3* RBC 3.75* 3.80* 3.63* HGB 7.7* 7.7* 7.3* HCT 28.7* 28.4* 26.9* MCV 76.5* 74.7* 74.1* RDW 19.9* 19.9* 19.9* PLT 458* 486* 467* BMP: Recent Labs 10/30/23 0337 10/31/23 0211 11/01/23 0015 NA 135 136 136 K 3.8 3.9 4.0 CL 100 102 101 CO2 30 29 31* BUN 10 12 11 CREATININE 0.46* 0.60* 0.53* GLUCOSE 153* 207* 167* CALCIUM 8.2* 8.3* 8.1* ANIONGAP 5 5 3 LIVER PROFILE: Recent Labs 10/30/23 0337 10/31/23 0211 11/01/23 0015 AST 23 19 23 ALT 14 14 13 BILITOT 0.4 0.3 0.5 ALKPHOS 82 87 84 PROT 6.5 6.5 6.4 PT/INR: No results for input(s): PROTIME, INR in the last 72 hours. CARDIAC ENZYMES: No results for input(s): TROPONINI in the last 72 hours. Procalcitonin: No results found for: PROCAL COVID-19 PCR: No results for input(s): COVID19 in the last 72 hours. Objective: Vitals: BP 114/63 (BP Location: Left arm, Patient Position: Sitting) Pulse 80 Temp (!) 35.9 C (96.7 F) (Temporal) Resp 20 Ht 5' 7 (1.702 m) Wt (!) 310 lb 6.4 oz (141 kg) SpO2 96% BMI 48.62 kg/m Pulse Ox: SpO2 Av.3 % Min: 92 % Max: 99 % Supplemental O2: O2 Flow Rate (L/min): 4 L/min Physical Exam Cardiovascular: Rate and Rhythm: Normal rate and regular rhythm. Pulmonary: Effort: Pulmonary effort is normal. Breath sounds: Normal breath sounds. Abdominal: Palpations: Abdomen is soft. Neurological: Mental Status: He is alert and oriented to person, place, and time. Mental status is at baseline. Medications: Scheduled PRN amLODIPine, 10 mg, Oral, Daily apixaban, 5 mg, Oral, BID carvedilol, 12.5 mg, Oral, BID WC cetirizine, 10 mg, Oral, Daily ertapenem, 1,000 mg, IntraVENous, q24h gabapentin, 100 mg, Oral, BID guaiFENesin, 1,200 mg, Oral, BID heparin flush, 250 Units, IntraCATHeter, q12h insulin glargine, 24 Units, SubCUTAneous, q AM insulin lispro, 0-6 Units, SubCUTAneous, TID WC And insulin lispro, 0-6 Units, SubCUTAneous, Nightly melatonin, 6 mg, Oral, Nightly morphine CR, 30 mg, Oral, 2 times per day pantoprazole, 40 mg, Oral, qAM AC senna-docusate sodium, 2 tablet, Oral, Nightly sodium chloride 0.9%, 10 mL, IntraCATHeter, q12h sodium chloride 0.9%, 5-40 mL, IntraVENous, q12h sodium chloride, 4 mL, Nebulization, BID PRN medications: acetaminophen OR acetaminophen, albuterol, carboxymethylcellulose PF, dextrose, dextrose, diphenhydrAMINE, glucagon (rDNA), glucose, heparin flush, methocarbamol, naloxone, ondansetron ODT OR ondansetron, oxyCODONE, polyethylene glycol (PEG) 3350, sodium chloride, sodium chloride 0.9%, sodium chloride 0.9% Continuous Assessment Acute, acute on chronic, unstable/uncontrolled chronic problems/diagnoses: Healthcare Acquired Pneumonia Complicated Urinary Tract Infection Acute on chronic anemia Stable chronic problems affecting care, new non-acute diagnoses: Diabetes Mellitus BATOOL on BiPAP Chronic Pain 4. Paraplegia Plan As a result of the above findings & factors, the following mgmt was pursued: -No intervention per CT surgery and no need for bronchoscopy at this time per pulmonary -Follow-up with ID, continue current antibiotics, PICC line in place -H&H trending down, monitor and transfuse if less than 7 -Continue Eliquis, monitor H&H - Supplemental O2 as needed to maintain SpO2 >90% -Continue current medications -Wound care following - DVT prophylaxis: SCDs and encourage ambulation Complexity: Acute illness or injury posing a threat to life or body function (HIGH). Risk: Advance Directive: Full Code Anticipated Discharge - Date -TBD - Location -TBD - Pending the following -antibiotic recommendations Total time spent (which include face to face and non face to face encounters) : minutes Extended Emergency Contact Information Primary Emergency Contact: Marci Elias Mobile Relation: Mother Preferred language: German Grab Jack Man needed? No Secondary Emergency Contact: NereidamaneAletha Mobile Relation: Sibling Preferred language: German Pedro Velasquez MD Division of Hospitalist Medicine Inpatient Medical Services[place] [place] * Palmira Marc - 10/31/2023 3:08 PM EDT Images from the original note were not included. PHYSICAL THERAPY [facility] Initial Evaluation Name/MRN: Melissa Elias ([id number]) Evaluation Date: 10/31/2023 Date of : 1965 Admission Date: 10/27/2023 5:00 PM Age: 58 y.o. [facility] Discharge Recommendation: Usp Facility Equipment Needed: No Other: TBD Assessment IMPRESSION: PT eval complete. Pt is a 58 y.o. male with healthcare aquired pneumonia. Pt also has paralysis from the waist down from a previous hospitalization. Pt is a max x 2 for rolling and says he has not sat EOB in months. Pt has deficits in strength, endurance, and tolerance to exercise. Pt wo uld benefit from skilled therapy to address these deficits and improve functional mobility. PT recommends discharge to a SNF. Diagnosis: Healthcare acquired Pneumonia Prognosis: fair Performance Deficits /Impairments: Increased Pain, Decreased ROM, Decreased Strength, Decreased Endurance, and Decreased Sensation Decision Making: High Complexity Subjective Pt was in bed and agreeable to PT. Pt says at his SF they have been doing ROM exercises with him. Pain: Mendoza-Gaffney Pain Ratin = Hurts little more Pain Location: Lungs Past Medical History: History reviewed. No pertinent past medical history. Past Surgical History: History reviewed. No pertinent surgical history. Admission Diagnosis: Patient Active Problem List Diagnosis Date Noted Pneumonia, bacterial 10/27/2023 Decubitus ulcer of left ischium, stage 3 ([facility]) 08/01/2023 Sacral wound 08/01/2023 Skin ulcer of multiple sites of lower extremity, limited to breakdown of skin ([facility]) 08/01/2023 Pressure injury of buttock, unstageable ([facility]) 02/25/2023 Morbid obesity ([facility]) 02/08/2023 Pressure injury of skin of sacral region 02/08/2023 Type 2 diabetes mellitus with hyperglycemia ([facility]) 02/08/2023 Pressure injury of left heel, unstageable ([facility]) 02/07/2023 Bilateral pulmonary embolism (HCC) 02/06/2023 Iron deficiency anemia 02/06/2023 Pressure injury of right buttock, stage 4 (HCC) 02/06/2023 Heart failure, unspecified (HCC) 12/14/2022 Retention of urine, unspecified 12/14/2022 Wedge compression fracture of t9-t10 vertebra, sequela 12/14/2022 Paraplegia (HCC) 12/06/2022 Aspiration pneumonitis (CMS/HCC) (HCC) 12/05/2022 Venous stasis ulcer of lower extremity (HCC) 12/02/2022 BATOOL (obstructive sleep apnea) 11/29/2022 Spinal stenosis 11/18/2022 Traumatic edema of thoracic spinal cord ([facility]) 11/18/2022 Controlled type 2 diabetes mellitus without complication ([facility]) 11/17/2022 Osteomyelitis of lumbar spine ([facility]) 02/16/2017 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 Fall Risk: Sarabia Fall Risk Score: 45 (High Risk) Precautions/Restrictions: Lines/Drains/Airways: 4 Liters O2 via NC, tele, IV, FC Family/Caregiver Present: none Overall Cognitive Status: WNL Overall Orientation Status: Oriented x4 Vision: not assessed this session Hearing: normal Social/Functional History Patient admitted from SNF. Assistive Equipment: none Prior Level of Function ADL Assistance: Needs Assist Ambulation Assistance: Needs Assistance Transfer Assistance: Needs Assist Objective Lower Extremity Assessment AROM: Exceptions: Paralysis from waist down PROM: WFL Strength: Exceptions: 0/5 BLE Bed Mobility: Rolling to right: Max Assist, x2 Person Assist Rolling to left: Max Assist, x2 Person Assist, Pt did reach for bed and try to pull self over. Transfers Did not perform Ambulation Did not assess this session. Outcome Measures AM-PAC How much HELP from another person do you currently need Turning from your back to your side while in a flat bed without using bedrails?: A Lot Moving from lying on your back to sitting on the side of a flat bed without using bedrails?: A Lot Moving to and from a bed to a chair (including a wheelchair)?: Total Standing up from a chair using your arms (wheelchair or bedside chair)?: Total Walking in a hospital room?: Total Stair climbing assessed?: No AM-PAC Inpatient Mobility Raw Score (No Stairs) : 7 JH-HLM -HLM Score: Bed activity Plan Pt would benefit from skilled acute PT services to address Strengthening, ROM, Balance Training, Functional Mobility Training, and Endurance Training. Frequency: 1x/week for 2 weeks Barriers: Pain, Limited family support, Decreased sensation, and Lower extremity weakness Safety/Education Safety Safety Devices in place: call light within reach and left in bed Restraints: No Education Education Given To: patient Education Provided: PT Role, PT Goals, Gait Training, and Plan of Care Education Method: Verbal Barriers to Learning: None Education Outcome: Verbalized Understanding Goals Patient Stated Goal: To feel better. Encounter Problems Encounter Problems (Active) Balance Patient will maintain static sitting balance for 2 minutes with max assist in order to demonstrate improved postural control and prepare for out of bed mobility. Start: 10/31/23 Expected End: 11/14/23 Transfers Patient will perform bed mobility with max assist in order to improve independence and prepare for out of bed mobility. Start: 10/31/23 Expected End: 11/14/23 Patient will complete functional transfer with least restrictive device with max assist in order toprepare for ambulation. Start: 10/31/23 Expected End: 11/14/23 Therapy Time Individual Co-treatment Time In 1332 Time Out 1352 Minutes 20 Palmira Marc Patient's Physical Therapy Plan of Care supervision is transferred to a [facility] Therapy Services Physical Therapist. Goals and/or treatment plan was established in collaboration with patient/family/other representatives. * Jean Moser MD - 10/31/2023 2:31 PM EDT [facility] - Infectious Diseases Attending Progress Note LATE ENTRY- seen on 10/31/23 at 4pm Subjective: Feels better, especially after nebulized therapy- cough more loose now. Less CP. Afebrile. Objective: Vitals: Patient Vitals for the past 24 hrs: BP Temp Temp src Pulse Resp SpO2 Weight 10/31/23 1215 -- -- -- -- -- 95 % -- 10/31/23 1134 116/67 36.7 C (98 F) Temporal 96 14 96 % -- 10/31/23 0750 160/88 36.1 C (97 F) Temporal 90 14 91 % -- 10/31/23 0425 134/74 (!) 35.9 C (96.7 F) Temporal 89 16 93 % (!) 146 kg (322 lb 1.5 oz) 10/31/23 0022 137/70 36.4 C (97.5 F) Temporal 91 16 92 % -- 10/30/23 1949 123/65 36.6 C (97.8 F) Temporal 90 16 93 % -- 10/30/23 1555 157/73 36.3 C (97.4 F) Temporal 94 17 95 % -- Physical Exam Vitals reviewed. Constitutional: Appearance: Normal appearance. He is obese. He is ill-appearing (chronically). Cardiovascular: Heart sounds: Normal heart sounds. No murmur heard. Pulmonary: Effort: Pulmonary effort is normal. No respiratory distress. Breath sounds: Normal breath sounds. No wheezing or rales (dec at R base). Abdominal: General: There is no distension. Palpations: Abdomen is soft. Tenderness: There is no abdominal tenderness (ostomy). Skin: Findings: No erythema or rash. Neurological: Mental Status: He is alert. Motor: Weakness present. Psychiatric: Mood and Affect: Mood normal. Thought Content: Thought content normal. Labs: Lab Results Component Value Date/Time NA 136 10/31/2023210 K 3.9 10/31/2023210 CL 102 10/31/2023210 CO2 29 10/31/2023210 BUN 12 10/31/2023210 CREATININE 0.60 (L) 10/31/2023210 GLUCOSE 207 (H) 10/31/2023210 CALCIUM 8.3 (L) 10/31/2023210 PROT 6.5 10/31/2023210 BILITOT 0.3 10/31/2023210 ALKPHOS 87 10/31/2023210 AST 19 10/31/2023210 ALT 14 10/31/2023210 PROCAL 0.31 (H) 10/28/2023 0436 Lab Results Component Value Date/Time WBC 9.3 10/31/2023210 HGB 7.7 (L) 10/31/2023210 HCT 28.4 (L) 10/31/2023 021 PLT 486 (H) 10/31/2023210 Micro: Reviewed SA PCR : neg No resp culture obtained Unable to tap pleural effusion form OSH Lines: PIV Radiography/Echo/Other: reviewed Antimicrobials, Start/End Dates: Vancomycin dc'd Meropenem Impression: 58 M admitted with RLL PNA, with effusion?loculated on imaging, unable to perform tohoracentesis atOSH, here for CTS evaluation. Clinically he is imprving on empiric tx. H/o recent CAUTI with ESBL- GNRs- from traumatic bartlett and clots, with bladder outlet obstruction symptoms- good UOP now Sacral decub ulcer- wound care for now H/o C auris + Urine culture, colonized, maintain on contact precautions. Chronic anemia Paraplegia secondary to fall DMT2 M obesity Overall HD stable, nontoxic. Plan: OK to switch to Ertapenem and treat at least 1-2 more weeks. If worsens, consider VATS/CT per CTS. * Wolf Esquivel MD - 10/31/2023 1:54 PM EDT PULMONOLOGY CONSULT PROGRESS NOTE 10/31/2023 Hospital LOS: LOS: 4 days Subjective/Interval History: No acute events overnight. Remains on 4L NC. Reports he has not been able to bring up much mucous. Denies fevers or chills. Overall feels he is improving. Discussed plan for antibiotics and no drainage of the pleural space at this time. A pertinent review of systems was performed and was otherwise non-contributory except as detailed in Subjective section above. Assessment and Plan: Right lower lobe pneumonia with loculated pleural effusion Acute hypoxic respiratory failure secondary to above Right lower lobe atelectasis BATOOL Morbid obesity PE on Eliquis History of paraplegia after spinal cord injury; sacral decubitus ulcer with history of osteomyelitis Never smoker Presented with pneumonia and right sided loculated pleural effusion which was not amenable to thoracentesis at [facility]. Images from [facility] reviewed, shows RLL pneumonia, loculated effusion, and RLL atelectasis. Transferred for CT surgery evaluation for considerations for drainage. CT surgery evaluated and patient not a candidate for VATS, not enough fluid to safely drain with chest tube. If re-accumulates recommended chest tube placement. CXR today appears stable. No indication for Bronchoscopy at this time. MRSA nares screen was negative but sputum culture not collected due to patient not producing sputum Escalate pulmonary hygiene, added Chest physiotherapy/Acapella, continue IS, add hypertonic saline nebs x 3 days. Continue BIPAP overnight and with naps, continue when returning to facility Antibiotics per Infectious Disease, per notes planning for a 1-2 weeks course. Recommend monitor for recurrence of infectious signs after then and repeat imaging in ~4 weeks Pulmonology will sign off, please call if any questions or assistance is needed Wolf Esquivel MD Vitals- BP 116/67 (BP Location: Right arm, Patient Position: Lying) Pulse 96 Temp 36.7 C (98 F) (Temporal) Resp 14 Ht 5' 7 (1.702 m) Wt (!) 322 lb 1.5 oz (146 kg) SpO2 95% BMI 50.45 kg/m Tmax:Temp (24hrs), Av.3 C (97.4 F), Min:35.9 C (96.7 F), Max:36.7 C (98 F) Hemodynamics: Cuff: Systolic (24hrs), Av , Min:116 , Max:160 /Diastolic (24hrs), Av, Min:65, Max:88 Cuff MAP:MAP (mmHg) Av.7 Min: 80 Max: 113 P: Pulse Av.7 Min: 89 Max: 96 Observed RR: Resp Av.5 Min: 14 Max: 17 Observed O2 sats: SpO2 Av.3 % Min: 88 % Max: 98 % Intake/Output Summary (Last 24 hours) at 10/31/2023 1354 Last data filed at 10/31/2023 0923 Gross per 24 hour Intake -- Output 3700 ml Net -3700 ml Physical exam- Physical Exam Constitutional: General: He is not in acute distress. Appearance: Normal appearance. He is not ill-appearing or toxic-appearing. Comments: Lying in bed, chronically ill appearing HENT: Head: Normocephalic and atraumatic. Right Ear: External ear normal. Left Ear: External ear normal. Nose: Nose normal. Mouth/Throat: Mouth: Mucous membranes are moist. Pharynx: Oropharynx is clear. Eyes: Conjunctiva/sclera: Conjunctivae normal. Cardiovascular: Rate and Rhythm: Normal rate and regular rhythm. Pulses: Normal pulses. Heart sounds: Normal heart sounds. No murmur heard. No gallop. Pulmonary: Effort: Pulmonary effort is normal. No respiratory distress. Breath sounds: Normal breath sounds. No wheezing or rales. Abdominal: General: There is no distension. Musculoskeletal: Right lower leg: No edema. Left lower leg: No edema. Skin: Coloration: Skin is not jaundiced or pale. Neurological: Mental Status: He is alert and oriented to person, place, and time. Comments: Paraplegic Psychiatric: Mood and Affect: Mood normal. Behavior: Behavior normal. Data: [facility] Labs within last 24 hours- BMP: Recent Labs 10/29/2341610/30/2333610/31/23 021 NA 136 135 136 K 3.8 3.8 3.9 CL 101 100 102 CO2 30 30 29 BUN 10 10 12 CREATININE 0.48* 0.46* 0.60* CALCIUM 8.4 8.2* 8.3* LFTs: Recent Labs 10/29/2341610/30/237 10/31/23 0211 AST 18 23 19 ALT 15 14 14 PROT 6.4 6.5 6.5 ALBUMIN 3.1* 3.1* 3.1* BILITOT 0.3 0.4 0.3 ALKPHOS 92 82 87 Glucose: Recent Labs 10/29/23 0417 10/29/23 0828 10/29/23 1537 10/29/23 2105 10/30/23 0337 10/30/23 0808 10/30/23 1305 10/30/23 1555 10/30/23 2101 10/31/23 0211 10/31/23 0751 10/31/23 1351 GLUCOSE 147* -- -- -- 153* -- -- -- -- 207* -- -- POCGLU -- < > 187* 212* -- 177* 237* 178* 203* -- 145* 194* < > = values in this interval not displayed. Procal: No results for input(s): PROCAL in the last 72 hours. CBC: Recent Labs 10/29/23416 10/30/23 0337 10/31/23 0211 WBC 8.1 8.8 9.3 HGB 7.9* 7.7* 7.7* HCT 29.3* 28.7* 28.4* PLT 413 458* 486* MCV 75.9* 76.5* 74.7* RDW 19.9* 19.9* 19.9* ABGs: No results for input(s): PHART, DMT5BAE, PO2ART, MQQ2XCO, SO2ART, O7ARSCZC in thelast 72 hours. Lactic Acid: No results for input(s): LACTATE in the last 72 hours. INR: No results for input(s): INR in the last 72 hours. Cardiac Injury Profile: No results for input(s): CKTOTAL, CKMB, TROPONINI in the last 72 hours. Labs in Last 3 months: No results found for: TSH, VITD25, PSA, INR, GLUF Microbiology- Urine Cx: No results found for: URINECX Blood Cx: No results found for: BLOODCX Sputum Cx: No results found for: RESPCULT Gram Stain: No results found for: LABGRAM PNA PCR: No results found for: HUMANMETAPNE COVID19: No results found for: COVID19 Legionella Ag: No results found for: LEGIONELLAPN Strep Ag: No results for input(s): STREPPNEUMO in the last 72 hours. Imaging- CXR portable:Results for orders placed during the hospital encounter of 10/27/23 XR chest 1 view Narrative [facility] Name[facility] 1965 [id number] Exam Date/Time: 10/31/2023 07:01 Procedure: XR CHEST 1 VIEW Ordering Provider: ROCKWELL HARIKRISHNA Reason For Exam: Bilateral infiltrates and effusion PORTABLE CHEST: INDICATION: Follow-up COMPARISON: 10/30/2023 Obtained at 0700 hours. A single portable AP radiograph of the chest was obtained. The heart is borderline in size. The mediastinal silhouette is normal. Bilateral effusions with atelectasis are again present. There is a moderate-sized right-sided consolidation, unchanged. There is no pleural thickening. Arthritic changesof the spine and shoulders are present. Fusion rods are present in relation to the spine Impression Stable appearance of the chest with continued bilateral effusions with atelectasis and consolidation of the right base. Report Dictated on Electronically Signed By: Jarod Tang DO Electronically Signed Date/Time: 10/31/2023 7:06 AM EDT CXR (2V): No results found for this or any previous visit. CT Chest: No results found for this or any previous visit. CTA Chest: No results found for this or any previous visit. Other Studies: Reviewed and as per electronic record. CxR/CT images personally reviewed by me when available; salient findings summarized in A/P. Current Facility-Administered Medications: acetaminophen (Tylenol) tablet 650 mg, 650 mg, Oral, q6h PRN, 650 mg at 10/30/232034 OR acetaminophen (Tylenol) suppository 650 mg, 650 mg, Rectal, q6h PRN, Ellyn De León MD albuterol (2.5 MG/3ML) 0.083% nebulizer solution 2.5 mg, 2.5 mg, Nebulization, q4h PRN, Ellyn De León MD amLODIPine (Norvasc) tablet 10 mg, 10 mg, Oral, Daily, Ellyn De León MD, 10 mg at 10/31/23 0914 apixaban (Eliquis) tablet 5 mg, 5 mg, Oral, BID, Pedro Taylor MD, 5 mg at 10/31/23 0914 carboxymethylcellulose PF (Refresh Plus) 0.5 % ophthalmic solution 1 drop, 1 drop, Both Eyes, BID PRN, Ellyn De León MD carvedilol (Coreg) tablet 12.5 mg, 12.5 mg, Oral, BID WC, Ellyn De León MD, 12.5 mg at 10/31/23 0914 cetirizine (ZyrTEC) tablet 10 mg, 10 mg, Oral, Daily, Ellyn De León MD, 10 mg at 10/31/23 0900 dextrose 5 % infusion, 100 mL/hr, IntraVENous, PRN, Ellyn De León MD dextrose 50 % solution 12.5 g, 12.5 g, IntraVENous, PRN, Ellyn De León MD ertapenem (INVanz) 1,000 mg in sodium chloride 0.9 % 50 mL IVPB Mini-Bag Plus, 1,000 mg, IntraVENous, q24h, Jean Moser MD, Stopped at 10/30/23 1608 gabapentin (Neurontin) capsule 100 mg, 100 mg, Oral, BID, Ellyn De León MD, 100 mg at 10/31/23 0914 glucagon (human recombinant) injection 1 mg, 1 mg, IntraMUSCular, PRN, Ellyn De León MD glucose oral gel 15 g, 15 g, Oral, PRN, Ellyn De León MD guaiFENesin (Mucinex) 12 hr tablet 1,200 mg, 1,200 mg, Oral, BID, Ellyn De León MD, 1,200 mg at 10/31/23 09 insulin glargine (Lantus) injection 24 Units, 24 Units, SubCUTAneous, q AM, Ellyn De León MD, 24 Units at 10/31/2314 Insulin Lispro (Humalog) injection 0-6 Units, 0-6 Units, SubCUTAneous, TID WC, 1 Units at 10/31/23 0914 AND Insulin Lispro (Humalog) injection 0-6 Units, 0-6 Units, SubCUTAneous, Nightly, Ellyn De León MD, 2 Units at 10/30/23 2200 melatonin tablet 6 mg, 6 mg, Oral, Nightly, Ellyn De León MD, 6 mg at 10/30/232023 methocarbamol (Robaxin) tablet 1,000 mg, 1,000 mg, Oral, q8h PRN, Ellyn De León MD, 1,000 mg at 10/31/23 0159 morphine CR (MS Contin) 12 hr tablet 30 mg, 30 mg, Oral, 2 times per day, Pedro Taylor MD naloxone (Narcan) injection 0.4 mg, 0.4 mg, IntraVENous, q5 min PRN, Helen Aldridge DO ondansetron ODT (Zofran-ODT) disintegrating tablet 4 mg, 4 mg, Oral, q8h PRN OR ondansetron (Zofran) injection 4 mg, 4 mg, IntraVENous, q6h PRN, Ellyn De León MD oxyCODONE (Roxicodone) immediate release tablet 10 mg, 10 mg, Oral, q6h PRN, Ellyn De León MD, 10 mgat 10/31/23 1136 pantoprazole (ProtoNix) EC tablet 40 mg, 40 mg, Oral, qAM AC, Ellyn De León MD, 40 mg at 10/31/23 0628 polyethylene glycol (PEG) 3350 (Miralax) packet 17 g, 17 g, Oral, Daily PRN, Ellyn De León MD, 17 g at 10/30/23 0831 senna-docusate sodium (Senokot-S) 8.6-50 MG tablet 2 tablet, 2 tablet, Oral, Nightly, Ellyn De León MD, 2 tablet at 10/30/232023 sodium chloride 0.9 % infusion, 5-250 mL/hr, IntraVENous, PRN, Ellyn De León MD sodium chloride 0.9% (NS) flush 5-40 mL, 5-40 mL, IntraVENous, q12h, Ellyn De León MD, 10 mL at 10/31/23 0916 sodium chloride 0.9% (NS) flush 5-40 mL, 5-40 mL, IntraVENous, PRN, Ellyn De León MD sodium chloride 3 % hypertonic nebulizer solution 4 mL, 4 mL, Nebulization, BID, Wolf Esquivel MD, 4 mL at 10/31/23 1215 Allergies No Known Allergies Associated attestation - Delgado Chawla MD - 10/31/2023 4:55 PM EDT I have personally performed a [id number] diagnostic evaluation on this patient on date of service10/31/23. History, labs, imaging studies, and electronic medical record have been reviewed by me. This note documented by the [x]fellow []resident []ALFONSO reflects my history, exam, and medical decisionmaking. I have reviewed and agree with the care plan. Changes were made in the orders as necessary.ROS documentation was reviewed and negative unless otherwise stated in HPI. Additional pertinent interval history, ROS, and physical exam findings: 58-year-old male with a history of BATOOL on BiPAP, morbid obesity, PE on Eliquis, prior spinal cord injury resulting in paraplegia, sacral decubitus ulcer with prior osteomyelitis, never-smoker admitted to [facility] 10/27/23 from [facility] for shortness of breath in the setting of RLL pneumonia and small right-sided loculated pleural effusion. CTS evaluated, not a surgical candidate, not enough fluid for chest tube. He feels well today, states symptoms are overall improved. He is saturating well on 4 LPM supplemental O2. He is hemodynamically stable and in no acute distress. Assessment: Acute hypoxemic respiratory failure RLL pneumonia Small loculated right-sided pleural effusion Atelectasis BATOOL on BiPAP Morbid obesity PE on Eliquis Never-smoker Plan: Outside images from [place] reviewed in PACS, consolidation in RLL concerning for pneumonia, associated atelectasis and small loculated pleural effusion concerning for parapneumonic effusion Unable to place chest tube due to limited amount of fluid, not a good candidate for VATS per CTS team ID following, planning for prolonged course of ertapenem CXR today appears stable, can consider chest tube placement if fluid re-accumulates No indication for bronchoscopy at this time Wean oxygen for goal SpO2 > 92% He will eventually need repeat CT chest in 6-8 weeks, recommend he have this done at [place] given home location Pulmonary will sign off Delgado Chawla MD Pulmonary & Critical Care Medicine [facility] Pager #[phone] * Pedro Taylor MD - 10/31/2023 1:04 PM EDT Hospitalist Progress Note 10/31/2023 Subjective: Admit Date: 10/27/2023 PCP: ROCIO BARTLETT Room#: [id number] A Brief Hospital course: Melissa is a 58 y.o. male with past medical history below who presented to ED with healthcare acquired pneumonia. Hx significant for DMII, paraplegia, BATOOL, Hx of blood clots and resides at [facility]. (+) Chronic Bartlett, was recently found to have ESBL E coli UTI. Admitted 10/24 at [place] when he presented to ED for hypoxia and found to have pneumonia. Started on empiric Vancomycin/Merrem. Pt transferred to [facility] from [place] for CT Surgical specialty assessment for drainage of effusions. AdmitTED for further evaluation and management. - Transfer for Cardiothoracic surgical specialty assessment and drainage of loculations - Vanc/Merrem - reported allergy/intolerance to PCNs - Per documentation Ucx (+) for ESBL E coli, Klebiella and Proteus. Respiratory workup noted Covid/Influenza/RSV negative. Strep, Legionella negative. CT surgery seen the patient, recommends no acute surgical intervention at this time. Pulmonary consulted ID consulted Interval History: 10/31/2023-patient alert, chart reviewed, denies any cough, shortness of breath. No sputum production noted. Remains on empiric antibiotics. Adult diet Regular; Isolation Tray (Disposables); 4 carb choices (60 gm/meal) 24HR INTAKE/OUTPUT: Intake/Output Summary (Last 24 hours) at 10/31/2023 1304 Last data filed at 10/31/2023 0923 Gross per 24 hour Intake -- Output 3700 ml Net -3700 ml LABS: CBC: Recent Labs 10/29/2341610/30/2333610/31/23210 WBC 8.1 8.8 9.3 RBC 3.86* 3.75* 3.80* HGB 7.9* 7.7* 7.7* HCT 29.3* 28.7* 28.4* MCV 75.9* 76.5* 74.7* RDW 19.9* 19.9* 19.9* PLT 413 458* 486* BMP: Recent Labs 10/29/2341610/30/2333610/31/23210 NA 136 135 136 K 3.8 3.8 3.9 CL 101 100 102 CO2 30 30 29 BUN 10 10 12 CREATININE 0.48* 0.46* 0.60* GLUCOSE 147* 153* 207* CALCIUM 8.4 8.2* 8.3* ANIONGAP 6 5 5 LIVER PROFILE: Recent Labs 10/29/2341610/30/237 10/31/23 021 AST 18 23 19 ALT 15 14 14 BILITOT 0.3 0.4 0.3 ALKPHOS 92 82 87 PROT 6.4 6.5 6.5 PT/INR: No results for input(s): PROTIME, INR in the last 72 hours. CARDIAC ENZYMES: No results for input(s): TROPONINI in the last 72 hours. Procalcitonin: No results found for: PROCAL COVID-19 PCR: No results for input(s): COVID19 in the last 72 hours. Objective: Vitals: BP 116/67 (BP Location: Right arm, Patient Position: Lying) Pulse 96 Temp 36.7 C (98 F)(Temporal) Resp 14 Ht 5' 7 (1.702 m) Wt (!) 322 lb 1.5 oz (146 kg) SpO2 95% BMI 50.45 kg/m Pulse Ox: SpO2 Av.6 % Min: 91 % Max: 96 % Supplemental O2: O2 Flow Rate (L/min): 4 L/min Physical Exam Cardiovascular: Rate and Rhythm: Normal rate and regular rhythm. Pulmonary: Effort: Pulmonary effort is normal. Breath sounds: Normal breath sounds. Abdominal: Palpations: Abdomen is soft. Neurological: Mental Status: He is alert and oriented to person, place, and time. Mental status is at baseline. Medications: Scheduled PRN amLODIPine, 10 mg, Oral, Daily apixaban, 5 mg, Oral, BID carvedilol, 12.5 mg, Oral, BID WC cetirizine, 10 mg, Oral, Daily ertapenem, 1,000 mg, IntraVENous, q24h gabapentin, 100 mg, Oral, BID guaiFENesin, 1,200 mg, Oral, BID insulin glargine, 24 Units, SubCUTAneous, q AM insulin lispro, 0-6 Units, SubCUTAneous, TID WC And insulin lispro, 0-6 Units, SubCUTAneous, Nightly melatonin, 6 mg, Oral, Nightly morphine, 30 mg, Oral, BID pantoprazole, 40 mg, Oral, qAM AC senna-docusate sodium, 2 tablet, Oral, Nightly sodium chloride 0.9%, 5-40 mL, IntraVENous, q12h sodium chloride, 4 mL, Nebulization, BID PRN medications: acetaminophen OR acetaminophen, albuterol, carboxymethylcellulose PF, dextrose, dextrose, glucagon (rDNA), glucose, methocarbamol, naloxone, ondansetron ODT OR ondansetron, oxyCODONE, polyethylene glycol (PEG) 3350, sodium chloride, sodium chloride 0.9% Continuous Assessment Acute, acute on chronic, unstable/uncontrolled chronic problems/diagnoses: Healthcare Acquired Pneumonia Complicated Urinary Tract Infection Stable chronic problems affecting care, new non-acute diagnoses: Diabetes Mellitus BATOOL on BiPAP Chronic Pain 4. Paraplegia 5. Anemia Plan As a result of the above findings & factors, the following mgmt was pursued: -No intervention per CT surgery and no need for bronchoscopy at this time per pulmonary -Follow-up with ID, continue empiric antibiotics -Continue Eliquis, monitor H&H - Supplemental O2 as needed to maintain SpO2 >90% -Continue current medications -Wound care following - DVT prophylaxis: SCDs and encourage ambulation Complexity: Acute illness or injury posing a threat to life or body function (HIGH). Risk: Advance Directive: Full Code Anticipated Discharge - Date -TBD - Location -TBD - Pending the following -antibiotic recommendations Total time spent (which include face to face and non face to face encounters) : minutes Extended Emergency Contact Information Primary Emergency Contact: Marci Elias Mobile Relation: Mother Preferred language: German Grab Jack Man needed? No Secondary Emergency Contact: Aletha Brasher Mobile Relation: Sibling Preferred language: German Pedro Velasquez MD Division of Hospitalist Medicine Inpatient Medical Services/[place] * Pedro Taylor MD - 10/30/2023 1:57 PM EDT Hospitalist Progress Note 10/30/2023 Subjective: Admit Date: 10/27/2023 PCP: ROCIO BARTLETT Room#: [id number] A Brief Hospital course: Melissa is a 58 y.o. male with past medical history below who presented to ED with healthcare acquired pneumonia. Hx significant for DMII, paraplegia, BATOOL, Hx of blood clots and resides at [facility]. (+) Chronic Bartlett, was recently found to have ESBL E coli UTI. Admitted 10/24 at [place] when he presented to ED for hypoxia and found to have pneumonia. Started on empiric Vancomycin/Merrem. Pt transferred to [facility] from [place] for CT Surgical specialty assessment for drainage of effusions. AdmitTED for further evaluation and management. - Transfer for Cardiothoracic surgical specialty assessment and drainage of loculations - Vanc/Merrem - reported allergy/intolerance to PCNs - Per documentation Ucx (+) for ESBL E coli, Klebiella and Proteus. Respiratory workup noted Covid/Influenza/RSV negative. Strep, Legionella negative. CT surgery seen the patient, recommends no acute surgical intervention at this time. Pulmonary consulted ID consulted Interval History: 10/30/2023-patient alert, chart reviewed, denies any headache, dizziness. Adult diet Regular; Isolation Tray (Disposables); 4 carb choices (60 gm/meal) 24HR INTAKE/OUTPUT: Intake/Output Summary (Last 24 hours) at 10/30/2023 1357 Last data filed at 10/30/2023 0400 Gross per 24 hour Intake 330 ml Output 500 ml Net -170 ml LABS: CBC: Recent Labs 10/28/2343510/29/2341610/30/23336 WBC 7.9 8.1 8.8 RBC 3.72* 3.86* 3.75* HGB 7.8* 7.9* 7.7* HCT 28.4* 29.3* 28.7* MCV 76.3* 75.9* 76.5* RDW 19.4* 19.9* 19.9* PLT 430 413 458* BMP: Recent Labs 10/28/2343510/29/2341610/30/23336 NA 134* 136 135 K 4.1 3.8 3.8 CL 100 101 100 CO2 29 30 30 BUN 17 10 10 CREATININE 0.56* 0.48* 0.46* GLUCOSE 144* 147* 153* CALCIUM 8.5 8.4 8.2* ANIONGAP 5 6 5 LIVER PROFILE: Recent Labs 10/28/2343510/29/2341610/30/23336 AST 32 18 23 ALT 15 15 14 BILITOT 0.3 0.3 0.4 ALKPHOS 97 92 82 PROT 6.7 6.4 6.5 PT/INR: No results for input(s): PROTIME, INR in the last 72 hours. CARDIAC ENZYMES: No results for input(s): TROPONINI in the last 72 hours. Procalcitonin: Lab Results Component Value Date PROCAL 0.31 (H) 10/28/2023 COVID-19 PCR: No results for input(s): COVID19 in the last 72 hours. Objective: Vitals: BP 140/65 (BP Location: Right arm, Patient Position: Sitting) Pulse 92 Temp (!) 35.8 C (96.5 F) (Temporal) Resp 17 Ht 5' 7 (1.702 m) Wt (!) 312 lb 11.2 oz (142 kg) SpO2 95% BMI48.98 kg/m Pulse Ox: SpO2 Av.5 % Min: 93 % Max: 95 % Supplemental O2: O2 Flow Rate (L/min): 2 L/min Physical Exam Cardiovascular: Rate and Rhythm: Normal rate and regular rhythm. Pulmonary: Effort: Pulmonary effort is normal. Breath sounds: Normal breath sounds. Abdominal: Palpations: Abdomen is soft. Neurological: Mental Status: He is alert and oriented to person, place, and time. Mental status is at baseline. Medications: Scheduled PRN amLODIPine, 10 mg, Oral, Daily apixaban, 5 mg, Oral, BID carvedilol, 12.5 mg, Oral, BID WC cetirizine, 10 mg, Oral, Daily ertapenem, 1,000 mg, IntraVENous, q24h gabapentin, 100 mg, Oral, BID guaiFENesin, 1,200 mg, Oral, BID insulin glargine, 24 Units, SubCUTAneous, q AM insulin lispro, 0-6 Units, SubCUTAneous, TID WC And insulin lispro, 0-6 Units, SubCUTAneous, Nightly melatonin, 6 mg, Oral, Nightly morphine, 30 mg, Oral, BID pantoprazole, 40 mg, Oral, qAM AC senna-docusate sodium, 2 tablet, Oral, Nightly sodium chloride 0.9%, 5-40 mL, IntraVENous, q12h PRN medications: acetaminophen OR acetaminophen, albuterol, carboxymethylcellulose PF, dextrose, dextrose, glucagon (rDNA), glucose, methocarbamol, naloxone, ondansetron ODT OR ondansetron, oxyCODONE, polyethylene glycol (PEG) 3350, sodium chloride, sodium chloride 0.9% Continuous Assessment Acute, acute on chronic, unstable/uncontrolled chronic problems/diagnoses: Healthcare Acquired Pneumonia Complicated Urinary Tract Infection Stable chronic problems affecting care, new non-acute diagnoses: Diabetes Mellitus - Continue home diabetic regimen - Check blood glucose qACHS w/ insulin sliding scale coverage BATOOL on BiPAP - Ordered for at bedtime and PRN Chronic Pain - Morphine 30mg PO BID - Oxycodone 5mg PRN 4. Paraplegia Plan As a result of the above findings & factors, the following mgmt was pursued: -No intervention per CT surgery and no need for bronchoscopy at this time per pulmonary -Follow-up with ID, continue current antibiotics -Continue Eliquis, monitor H&H - Supplemental O2 as needed to maintain SpO2 >90% -Continue current medications - DVT prophylaxis: SCDs and encourage ambulation Complexity: Acute illness or injury posing a threat to life or body function (HIGH). Risk: Advance Directive: Full Code Anticipated Discharge - Date -TBD - Location -TBD - Pending the following -clinical course, consult recommendations Total time spent (which include face to face and non face to face encounters) : 44 minutes Extended Emergency Contact Information Primary Emergency Contact: Marci Elias Mobile Relation: Mother Preferred language: German Grab Jack Man needed? No Secondary Emergency Contact: NereidamaneAletha Mobile Relation: Sibling Preferred language: German Pedro Velasquez MD Division of Hospitalist Medicine Inpatient Medical Services/[place] * Pedro Taylor MD - 10/29/2023 2:58 PM EDT Hospitalist Progress Note 10/29/2023 Subjective: Admit Date: 10/27/2023 PCP: ROCIO BARTLETT Room#: [id number] A Brief Hospital course: Melissa is a 58 y.o. male with past medical history below who presented to ED with healthcare acquired pneumonia. Hx significant for DMII, paraplegia, BATOOL, Hx of blood clots and resides at [facility]. (+) Chronic Bartlett, was recently found to have ESBL E coli UTI. Admitted 10/24 at [place] when he presented to ED for hypoxia and found to have pneumonia. Started on empiric Vancomycin/Merrem. Pt transferred to [facility] from [place] for CT Surgical specialty assessment for drainage of effusions. AdmitTED for further evaluation and management. - Transfer for Cardiothoracic surgical specialty assessment and drainage of loculations - Vanc/Merrem - reported allergy/intolerance to PCNs - Per documentation Ucx (+) for ESBL E coli, Klebiella and Proteus. Respiratory workup noted Covid/Influenza/RSV negative. Strep, Legionella negative. CT surgery seen the patient, recommends no acute surgical intervention at this time. Pulmonary consulted ID consulted Interval History: 10/29/2023-patient alert, chart reviewed, denies any headache, dizziness. Afebrile. No intervention per CT surgery and pulmonary. Adult diet Regular; Isolation Tray (Disposables); 4 carb choices (60 gm/meal) 24HR INTAKE/OUTPUT: Intake/Output Summary (Last 24 hours) at 10/29/2023 1458 Last data filed at 10/29/2023 1044 Gross per 24 hour Intake 450 ml Output 2800 ml Net -2350 ml LABS: CBC: Recent Labs 10/28/2343510/29/23416 WBC 7.9 8.1 RBC 3.72* 3.86* HGB 7.8* 7.9* HCT 28.4* 29.3* MCV 76.3* 75.9* RDW 19.4* 19.9* PLT 430 413 BMP: Recent Labs 10/27/23231010/28/236 10/29/23416 NA 133* 134* 136 K 4.4 4.1 3.8 CL 99 100 101 CO2 29 29 30 BUN 17 17 10 CREATININE 0.61* 0.56* 0.48* GLUCOSE 154* 144* 147* CALCIUM 8.3* 8.5 8.4 ANIONGAP 4 5 6 LIVER PROFILE: Recent Labs 10/27/23231010/28/236 10/29/23416 AST 31 32 18 ALT 15 15 15 BILITOT 0.3 0.3 0.3 ALKPHOS 109 97 92 PROT 6.7 6.7 6.4 PT/INR: No results for input(s): PROTIME, INR in the last 72 hours. CARDIAC ENZYMES: No results for input(s): TROPONINI in the last 72 hours. Procalcitonin: Lab Results Component Value Date PROCAL 0.31 (H) 10/28/2023 COVID-19 PCR: No results for input(s): COVID19 in the last 72 hours. Objective: Vitals: BP 118/65 (BP Location: Right arm, Patient Position: Sitting) Pulse 91 Temp 36.4 C (97.6 F) (Temporal) Resp 18 Ht 5' 7 (1.702 m) Wt (!) 312 lb 11.2 oz (142 kg) SpO2 93% BMI 48.98 kg/m Pulse Ox: SpO2 Av.3 % Min: 93 % Max: 94 % Supplemental O2: O2 Flow Rate (L/min): 4 L/min Physical Exam Cardiovascular: Rate and Rhythm: Normal rate and regular rhythm. Pulmonary: Effort: Pulmonary effort is normal. Breath sounds: Normal breath sounds. Abdominal: Palpations: Abdomen is soft. Neurological: General: No focal deficit present. Mental Status: He is alert and oriented to person, place, and time. Medications: Scheduled PRN amLODIPine, 10 mg, Oral, Daily [Held by provider] apixaban, 5 mg, Oral, BID carvedilol, 12.5 mg, Oral, BID WC cetirizine, 10 mg, Oral, Daily ertapenem, 1,000 mg, IntraVENous, q24h gabapentin, 100 mg, Oral, BID guaiFENesin, 1,200 mg, Oral, BID insulin glargine, 24 Units, SubCUTAneous, q AM insulin lispro, 0-6 Units, SubCUTAneous, TID WC And insulin lispro, 0-6 Units, SubCUTAneous, Nightly melatonin, 6 mg, Oral, Nightly morphine, 30 mg, Oral, BID pantoprazole, 40 mg, Oral, qAM AC senna-docusate sodium, 2 tablet, Oral, Nightly sodium chloride 0.9%, 5-40 mL, IntraVENous, q12h PRN medications: acetaminophen OR acetaminophen, albuterol, carboxymethylcellulose PF, dextrose, dextrose, glucagon (rDNA), glucose, methocarbamol, naloxone, ondansetron ODT OR ondansetron, oxyCODONE, polyethylene glycol (PEG) 3350, sodium chloride, sodium chloride 0.9% Continuous Assessment Acute, acute on chronic, unstable/uncontrolled chronic problems/diagnoses: Healthcare Acquired Pneumonia Complicated Urinary Tract Infection Stable chronic problems affecting care, new non-acute diagnoses: Diabetes Mellitus - Continue home diabetic regimen - Check blood glucose qACHS w/ insulin sliding scale coverage BATOOL on BiPAP - Ordered for at bedtime and PRN Chronic Pain - Morphine 30mg PO BID - Oxycodone 5mg PRN Plan As a result of the above findings & factors, the following mgmt was pursued: -No intervention per CT surgery and no need for bronchoscopy at this time per pulmonary -Follow-up with ID, continue current antibiotics -Resume Eliquis - Supplemental O2 as needed to maintain SpO2 >90% -Continue current medications - DVT prophylaxis: SCDs and encourage ambulation Complexity: Acute illness or injury posing a threat to life or body function (HIGH). Risk: Advance Directive: Full Code Anticipated Discharge - Date -TBD - Location -TBD - Pending the following -clinical course, consult recommendations Total time spent (which include face to face and non face to face encounters) : 44 minutes Extended Emergency Contact Information Primary Emergency Contact: Marci Elias Mobile Relation: Mother Preferred language: German Grab Jack Man needed? No Secondary Emergency Contact: Aletha Brasher Mobile Relation: Sibling Preferred language: German Pedro Velasquez MD Division of Hospitalist Medicine Inpatient Medical Services[place] [place] * July Granger MD - 10/29/2023 11:11 AM EDT Images from the original note were not included. Department of Cardiothoracic Surgery Daily Progress Note ADMIT DATE: 10/27/2023 TODAY'S DATE: 10/29/2023 SUBJECTIVE: No acute events overnight. Tolerating diet. Pain controlled. Saturating well on NC. Breathing for patient feels similar to previous days. ROS: Noted above unless otherwise mentioned OBJECTIVE: VITALS: Temp: [36 C (96.8 F)-36.8 C (98.3 F)] 36 C (96.8 F) Heart Rate: [81-92] 81 Resp: [16-24] 18 BP: (115-143)/(62-74) 115/62 INTAKE/OUTPUT: Intake/Output Summary (Last 24 hours) at 10/29/2023 1111 Last data filed at 10/29/2023 1044 Gross per 24 hour Intake 1290 ml Output 2800 ml Net -1510 ml I/O last 3 completed shifts: In: 2350 (16.6 mL/kg) [P.O.:980; I.V.:120 (0.8 mL/kg); IV Piggyback:1250] Out: 5950 (41.9 mL/kg) [Urine:5700 (1.1 mL/kg/hr); Stool:250] Weight: 141.8 kg I/O this shift: In: - Out: 700 [Urine:700] PHYSICAL EXAM: CONSTITUTIONAL: awake, alert, cooperative, no apparent distress, obese NECK: Supple, symmetrical, trachea midline, no adenopathy LUNGS: Saturating well on 4 L nasal cannula CARDIOVASCULAR: Regular rate and rhythm ABDOMEN: Soft, non-distended, non-tender, no rebound, no guarding, no masses palpated, CHEST: no masses palpated, no axillary or supraclavicular adenopathy GENITAL/URINARY: Not examined MUSCULOSKELETAL: There is no redness, warmth, or swelling of the joints. Full range of motion noted. NEUROLOGIC: Awake, alert, oriented to name, place and time. SKIN: normal skin color, texture, no redness, warmth, or swelling LABS CBC: Auto WBC Date Value Ref Range Status 10/29/2023 8.1 3.6 - 10.7 10*3/uL Final 10/28/2023 7.9 3.6 - 10.7 10*3/uL Final 01/04/2023 8.7 3.6 - 10.7 10*3/uL Final Hemoglobin Date Value Ref Range Status 10/29/2023 7.9 (L) 13.0 - 18.0 g/dL Final 10/28/2023 7.8 (L) 13.0 - 18.0 g/dL Final 01/04/2023 8.6 (L) 13.0 - 18.0 g/dL Final Platelets Date Value Ref Range Status 10/29/2023 413 140 - 440 10*3/uL Final 10/28/2023 430 140 - 440 10*3/uL Final 01/04/2023 249 140 - 440 10*3/uL Final BMP: SODIUM Date Value Ref Range Status 10/29/2023 136 135 - 145 mmol/L Final 10/28/2023 134 (L) 135 - 145 mmol/L Final 10/27/2023 133 (L) 135 - 145 mmol/L Final POTASSIUM Date Value Ref Range Status 10/29/2023 3.8 3.5 - 5.1 mmol/L Final 10/28/2023 4.1 3.5 - 5.1 mmol/L Final 10/27/2023 4.4 3.5 - 5.1 mmol/L Final CHLORIDE Date Value Ref Range Status 10/29/2023 101 98 - 107 mmol/L Final 10/28/2023 100 98 - 107 mmol/L Final 10/27/2023 99 98 - 107 mmol/L Final CARBON DIOXIDE Date Value Ref Range Status 10/29/2023 30 22 - 30 mmol/L Final 10/28/2023 29 22 - 30 mmol/L Final 10/27/2023 29 22 - 30 mmol/L Final UREA NITROGEN Date Value Ref Range Status 10/29/2023 10 9 - 20 mg/dL Final 10/28/2023 17 9 - 20 mg/dL Final 10/27/2023 17 9 - 20 mg/dL Final CREATININE Date Value Ref Range Status 10/29/2023 0.48 (L) 0.66 - 1.25 mg/dL Final 10/28/2023 0.56 (L) 0.66 - 1.25 mg/dL Final 10/27/2023 0.61 (L) 0.66 - 1.25 mg/dL Final Hepatic: AST (SGOT) Date Value Ref Range Status 10/29/2023 18 15 - 46 U/L Final 10/28/2023 32 15 - 46 U/L Final 10/27/2023 31 15 - 46 U/L Final ALT Date Value Ref Range Status 10/29/2023 15 0 - 49 U/L Final 10/28/2023 15 0 - 49 U/L Final 10/27/2023 15 0 - 49 U/L Final ALBUMIN Date Value Ref Range Status 10/29/2023 3.1 (L) 3.5 - 5.0 g/dL Final 10/28/2023 3.0 (L) 3.5 - 5.0 g/dL Final 10/27/2023 3.1 (L) 3.5 - 5.0 g/dL Final BILIRUBIN, TOTAL Date Value Ref Range Status 10/29/2023 0.3 0.2 - 1.3 mg/dL Final 10/28/2023 0.3 0.2 - 1.3 mg/dL Final 10/27/2023 0.3 0.2 - 1.3 mg/dL Final ALKALINE PHOSPHATASE Date Value Ref Range Status 10/29/2023 92 38 - 126 U/L Final 10/28/2023 97 38 - 126 U/L Final 10/27/2023 109 38 - 126 U/L Final Current Inpatient Medications Scheduled Meds:amLODIPine, 10 mg, Oral, Daily [Held by provider] apixaban, 5 mg, Oral, BID carvedilol, 12.5 mg, Oral, BID WC cetirizine, 10 mg, Oral, Daily ertapenem, 1,000 mg, IntraVENous, q24h gabapentin, 100 mg, Oral, BID guaiFENesin, 1,200 mg, Oral, BID insulin glargine, 24 Units, SubCUTAneous, q AM insulin lispro, 0-6 Units, SubCUTAneous, TID WC And insulin lispro, 0-6 Units, SubCUTAneous, Nightly melatonin, 6 mg, Oral, Nightly morphine, 30 mg, Oral, BID pantoprazole, 40 mg, Oral, qAM AC senna-docusate sodium, 2 tablet, Oral, Nightly sodium chloride 0.9%, 5-40 mL, IntraVENous, q12h Continuous Infusions: PRN Meds:PRN medications: acetaminophen OR acetaminophen, albuterol, carboxymethylcellulose PF,dextrose, dextrose, glucagon (rDNA), glucose, methocarbamol, naloxone, ondansetron ODT OR ondansetron, oxyCODONE, polyethylene glycol (PEG) 3350, sodium chloride, sodium chloride 0.9% ASSESSMENT AND PLAN: This is a 58 y.o. male with right-sided pleural effusion -No acute surgical intervention indicated at this time -Effusion is small, unable to tap at outside facility -Per Pulmonology, no need for bronchoscopy at this time -Surgical intervention to evacuate fluid would likely not yield clinically significant results to improve respiratory status -Daily chest x-ray -On vanc/Merrem -All other care per primary team -If enlargement of pleural effusion is seen in coming days, can consider re- attempts at thoracentesis - CT surgery to sign off at this time, please page with questions. Patient discussed with attending, Dr. Ralph. July Granger MD General Surgery PGY-1 10/29/23 11:11 AM Pager # [phone] This note may have been dictated using [employer] Medical Practice Edition 2.6 and/or Quick [employer] Voice Recognition Feature. The document was proofread; however, unrecognized voice recognition overhead worker errors may be present. Associated attestation - Sunitha Ralph DO - 10/30/2023 4:39 PM EDT ATTESTATION The patient was seen and examined. I have reviewed the patients presentation, histories, imaging and serology studies. I agree with the above assessment and plan. My date of service is 10/29/23. No acute surgical intervention. Effusion is small. Patient clinically improving. I (Sunitha Ralph) personally supervised the resident in the evaluation and development of a treatment plan for this patient including using nursing/ems notes. I personally discussed the review of systems and interviewed the patient along with performing a physical examination, answering questions and discussing treatment options as applicable. I have also reviewed and agree with the past medical, family and social history unless otherwise noted and personally reviewed the imaging and labs. This note may be a delayed entry. A total of 35 minutes were spent between the face to face encounter, physical exam, reviewing the medical history, coordinating the patient's care, counseling/educating the patient, ordering prescript ions/medications/tests/procedures, interpreting results and documenting clinical information in thepatient's electronic health record on the day of the encounter. The patient was seen and examined independently and relevant data reviewed by myself. A full chart review was performed. 1. Pneumonia, bacterial Electronically signed by Sunitha Ralph DO, MS, FACOS * Jd ePñaloza MD - 10/29/2023 10:20 AM EDT Images from the original note were not included. [facility] [place], Pulmonary Medicine [phone] Patient - Melissa Elias, Age - 58 y.o. - 1965 Room Number - [facility]528/[facility]8 A Consulting - Pedro Taylor MD Primary Care Physician - ROCIO REARDONSMITHMyranda Date of Admission - 10/27/2023 5:00 PM Hospital Day - 2 Chief Complaint Melissa Elias is a 58 y.o. male who pulmonary is following for loculated pleural effusion rightsided PNA Interval History Patient reports symptoms are improving. Complains mostly of uncomfortable bed. All other systems reviewed Objective Vitals: BP 142/72 (BP Location: Right arm, Patient Position: Sitting) Pulse 91 Temp 36.1 C (97 F) (Temporal) Resp 18 Ht 5' 7 (1.702 m) Wt (!) 312 lb 11.2 oz (142 kg) SpO2 94% BMI 48.98kg/m Pulse Ox: SpO2 Av.2 % Min: 93 % Max: 96 % Supplemental O2: O2 Flow Rate (L/min): 4 L/min I/O 24HR INTAKE/OUTPUT: Intake/Output Summary (Last 24 hours) at 10/29/2023 1020 Last data filed at 10/29/2023 0840 Gross per 24 hour Intake 1290 ml Output 2700 ml Net -1410 ml Exam General appearance: Awake, alert, no acute distress. On 4 liters NC. HEENT: Normocephalic, atraumatic. No scleral icterus, no right/left eye discharge. Conjunctivae normal. Pupils equal round and reactive to light. Right external ear normal, Left external ear normal. No congestion. Mouth: mucous membranes moist. Pharynx, Oropharynx is clear. No oropharyngeal exudate. Neck: ROM normal, No thyromegaly. No cervical lymphadenopathy Cardiovascular: Regular rate and rhythm. Heart sounds normal. Negative for murmur, friction rub or gallop. Pulmonary: Effort normal, no respiratory distress. No stridor Abdomen: Soft, no distention, no abdominal tenderness. No guarding. No masses. Musculoskeletal: ROM normal, Negative for swelling, tenderness or deformity. Skin: Warm and dry. Skin is not jaundiced. No rash Extremities: No clubbing, cyanosis, or extremity edema Neurological: No focal deficits. Alert and oriented x person, place and time. Mental status is at baseline. No motor weakness. Psychiatric: Mood, behavior, thought content normal. Cooperative with exam. Medications Current Medications amLODIPine, 10 mg, Oral, Daily [Held by provider] apixaban, 5 mg, Oral, BID carvedilol, 12.5 mg, Oral, BID WC cetirizine, 10 mg, Oral, Daily ertapenem, 1,000 mg, IntraVENous, q24h gabapentin, 100 mg, Oral, BID guaiFENesin, 1,200 mg, Oral, BID insulin glargine, 24 Units, SubCUTAneous, q AM insulin lispro, 0-6 Units, SubCUTAneous, TID WC And insulin lispro, 0-6 Units, SubCUTAneous, Nightly melatonin, 6 mg, Oral, Nightly morphine, 30 mg, Oral, BID pantoprazole, 40 mg, Oral, qAM AC senna-docusate sodium, 2 tablet, Oral, Nightly sodium chloride 0.9%, 5-40 mL, IntraVENous, q12h PRN Mediations PRN medications: acetaminophen OR acetaminophen, albuterol, carboxymethylcellulose PF, dextrose, dextrose, glucagon (rDNA), glucose, methocarbamol, naloxone, ondansetron ODT OR ondansetron, oxyCODONE, polyethylene glycol (PEG) 3350, sodium chloride, sodium chloride 0.9% IV Drips/Infusions Labs CBC Results from last 7 days Lab Units 10/29/23 0417 WBC AUTO 10*3/uL 8.1 HEMOGLOBIN g/dL 7.9* HEMATOCRIT % 29.3* PLATELETS AUTO 10*3/uL 413 BMP: Results from last 7 days Lab Units 10/29/23 0417 10/28/23 0436 10/27/23 2311 SODIUM mmol/L 136 134* 133* POTASSIUM mmol/L 3.8 4.1 4.4 CHLORIDE mmol/L 101 100 99 CO2 mmol/L 30 29 29 BUN mg/dL 10 17 17 CREATININE mg/dL 0.48* 0.56* 0.61* GLUCOSE mg/dL 147* 144* 154* CALCIUM mg/dL 8.4 8.5 8.3* ABG: LIVER PROFILE Results from last 7 days Lab Units 10/29/23 0417 10/28/23 0436 10/27/23 2311 ALK PHOS U/L 92 97 109 BILIRUBIN TOTAL mg/dL 0.3 0.3 0.3 PROTEIN TOTAL g/dL 6.4 6.7 6.7 ALT U/L 15 15 15 AST U/L 18 32 31 INR PTT No results found for: PTT Cultures Radiology CT chest from [facility] personally reviewed on PACS shows small loculated right side effusion and significant RLL PNA but no atelectasis etc. Active Hospital Problem List Patient Active Problem List Diagnosis Pneumonia, bacterial Aspiration pneumonitis (CMS/HCC) (HCC) Bilateral pulmonary embolism (HCC) Controlled type 2 diabetes mellitus without complication (HCC) Decubitus ulcer of left ischium, stage 3 (HCC) Heart failure, unspecified (HCC) Iron deficiency anemia Morbid obesity (HCC) BATOOL (obstructive sleep apnea) Osteomyelitis of lumbar spine (HCC) Paraplegia (HCC) Pressure injury of left heel, unstageable (HCC) Pressure injury of buttock, unstageable (HCC) Pressure injury of right buttock, stage 4 (HCC) Pressure injury of skin of sacral region Sacral wound Retention of urine, unspecified Spinal stenosis 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 Acuyte respiratory failure with hypoxia BATOOL/OHS on nocturnal BiPAP Severe morbid obesity, BMI 50 ESBL UTI --no need for bronchoscopy. Suggest conservative management for the effusion. Should improve with Abx. If worsens could consider small image guided pigtail with lytics. Continue oxygen and nocturnal BiPAP Case discussed with nurse and patient/family. Questions and concerns addressed. * Jd Carlin RP - 10/28/2023 4:09 PM EDT Vancomycin therapy has been discontinued by Dr Moser on 10/28/23. Thank you for the consult. Pharmacy signing off for vancomycin dosing. Jd Carlin RP, PharmD Date: 10/28/23 Time: 4:09 PM * Katiuska Hill, HOWARD - 10/28/2023 1:55 PM EDT Nutrition Assessment Type and Reason for Visit: Initial, Wound, Positive Nutrition Screen Nutrition Recommendations/Plan: Current diet Adult diet Clear liquid ; Suggest diet advancement to goal of 75 g CHO controlled diet, can also consider need for 3-4 g LOW therapeutic restriction as well, sig BLE edema is noted Supplement(s): Added Apple and Mixed jha Ensure Clear 3x/day (provides 240 kcals, 8 grams protein, 8 oz per serving) per MNT protocol Once off CLD, please modify ONS to Chocolate Ensure Max Protein once daily (150 kcals, 30 g pro mar.) vs. Ensure High Protein BID (160 kcals, 16 g pro per ea.) Please provide tray setup help, feeding assistance as needed Will continue to monitor labs, meds, po intakes and/or enteral nutrition tolerance, skin integrity,wt trends, and overall nutrition status - RD to follow weekly Malnutrition Assessment: Malnutrition Status: At risk for malnutrition (Comment) (PNA w/ loculated effusions not amendable to thora, CLD, Wound, UTI) Context: Acute Illness Findings of the 6 clinical characteristics of malnutrition: Energy Intake: 75% or less of estimated energy requirements for 7 or more days (CLD - pt started tofeel ill on Sunday 10/22) Weight Loss: Unable to assess (limited wt hx) Body Fat Loss: Unable to assess Muscle Mass Loss: Unable to assess Fluid Accumulation: Moderate to Severe Extremities Mine Deputy Strength: Not Performed HISTORY OF PRESENT ILLNESS: Melissa is a 58 y.o. male with past medical history below who presents with chief complaint listed above. Hx significant for DMII, paraplegia, BATOOL, Hx of blood clots and resides at [facility]. (+) Chronic Bartlett, was recently found to have ESBL E coli UTI. Admitted 10/24 at [place] when he presented to ED for hypoxia and found to have pneumonia. Started on empiric Vancomycin/Merrem. [facility] [place] [facility] for CT Surgical specialty assessment for drainage of effusions. Will admit for further evaluation and management. - Transfer for Cardiothoracic surgical specialty assessment and drainage of loculations - Vanc/Merrem - reported allergy/intolerance to PCNs - Per documentation Ucx (+) for ESBL E coli, Klebiella and Proteus. Respiratory workup noted Covid/Influenza/RSV negative. Strep, Legionella negative. Nutrition Assessment: +Nutrition screen for wound. 58M w/ PMHx significant for DMII, paraplegia after spinal cord injury,sacral decubitus ulcer with h/o OM, BATOOL, h/o blood clots and resides at [facility]. Has a chronic Bartlett and colostomy. Recently found to have ESBL E coli UTI. Ad[facility] whenhe presented to the ED for hypoxia. CTA suggestive of PNA w/ loculated right pleural effusion. Had negative urine strep pneumo/legionella and COVID/Flu/RSV. Thora attempted but there was no amenable pocket for drainage. Started on empiric vanc/merrem. Thoracentesis was attempted but there was no amenable pocket for drainage. T/fx to [facility] for CT surgical specialty assessment for drainage of loculations. CTS eval'd pt, no surgical interventions at this time. Pulm eval'd for PNA w/ reported mucus plugging - no indication for bronch at this time. He is on 4L NC at this time and in NAD. Cont autobipiap overnight and w/ naps. CXR today is notable for bilateral pleural effusions R > L, pulmonaryvascular congestion. Pulm suspects IR guided chest tube with drainage will be necessary. 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 ID c/s pending for ATB therapy. Pt reports feeling illsince Tuesday. Has remains on CLD. A1c controlled. Estimated Daily Nutrient Needs: Energy Requirements Based On: Kcal/kg Weight Used for Energy Requirements: Adjusted Weight for Energy Calculation (kg): 62.23 kg Total Energy Requirements (kcals/day): 9043-7150 (25-30 kcals/kg AIBW) Weight Used for Protein Requirements: Adjusted (AIBW for obesity) Weight in Kg Used for Protein Requirements: 62.23 kg Estimated Total Protein (g/day): 75-94 (1.2-1.5 g/kg AIBW) Estimated Daily Total Fluid (ml/day): 1 ml/kcal or per MD Nutrition Related Findings: Wound Type: (per wound care: Sacrum: Pressure Injury (Stage 4)) Isolation Status: Contact Food Allergies: NKFA Room Service: Selective Qamar Scale Score: 13 Net IO Since Admission: -2,790 mL [10/28/23 1444] BLE Edema: Deep pitting, indentation remains for a short time Bowel Sounds (All Quadrants): Active Last BM Date: (Colostomy) Stool Appearance: Loose, Soft Stool Color: Brown, Green Nutrition History: Resides at [facility], Paraplegia, Colostomy, Chronic Bartlett Intake/Output Summary (Last 24 hours) at 10/28/2023 1444 Last data filed at 10/28/2023 1018 Gross per 24 hour Intake 1060 ml Output 3850 ml Net -2790 ml Labs/Meds Reviewed: amLODIPine, 10 mg, Oral, Daily [Held by provider] apixaban, 5 mg, Oral, BID carvedilol, 12.5 mg, Oral, BID WC cetirizine, 10 mg, Oral, Daily gabapentin, 100 mg, Oral, BID guaiFENesin, 1,200 mg, Oral, BID insulin glargine, 24 Units, SubCUTAneous, q AM insulin lispro, 0-6 Units, SubCUTAneous, TID WC And insulin lispro, 0-6 Units, SubCUTAneous, Nightly melatonin, 6 mg, Oral, Nightly meropenem, 2,000 mg, IntraVENous, q8h morphine, 30 mg, Oral, BID pantoprazole, 40 mg, Oral, qAM AC senna-docusate sodium, 2 tablet, Oral, Nightly sodium chloride 0.9%, 5-40 mL, IntraVENous, q12h vancomycin, 1,750 mg, IntraVENous, q12h BMP: Recent Labs 10/27/23 2311 10/28/23 0436 NA 133* 134* K 4.4 4.1 CL 99 100 CO2 29 29 BUN 17 17 CREATININE 0.61* 0.56* GLUCOSE 154* 144* CALCIUM 8.3* 8.5 MG -- 1.9 HEPATIC: Recent Labs 10/27/23 2311 10/28/23 0436 AST 31 32 ALT 15 15 BILITOT 0.3 0.3 ALKPHOS 109 97 CBC: Recent Labs 10/28/236 WBC 7.9 HGB 7.8* HCT 28.4* MCV 76.3* PLT 430 Lab Results Component Value Date HGBA1C 6.6 (H) 10/28/2023 Recent Labs 10/27/23 2309 10/28/23 0814 10/28/23 1123 POCGLU 180* 162* 176* Current Nutrition Therapies: Adult diet Clear liquid Current Oral Intake Average Meal Intake: Unable to assess Average Supplements Intake: None Ordered Anthropometric Measures: Height: 170.2 cm (5' 7) Current Body Weight: 142 kg (312 lb) Weight Source: Bed Scale Admission Body Weight: 142 kg (312 lb) Usual Body Weight: 142 kg (312 lb) % Weight Change (Calculated): 0 [place] Body Weight (lbs) (Calculated): 148 lbs [place] Body Weight (Kg) (Calculated): 67 kg % [place] Body Weight (Calculated): 210.8 % BMI (kg/m2) (Calculated): 48.9 Weight Adjustment For: Paraplegia % Weight Adjustment: 7.5 - Paraplegia Total Adjusted Percentage (Calculated): 7.5 Adjusted [place] Body Weight (lbs) (Calculated): 136.9 lbs Adjusted [place] Body Weight (kg) (Calculated): 62.23 kg Adjusted BMI (kg/m2) (Calculated): 52.6 BMI Categories: Obese Class 3 (BMI 40.0 or greater) BMI (Calculated): 48.96 Weight: (!) 142 kg (312 lb 11.2 oz) Weight Method: Bed scale Weight History: Wt Readings from Last 20 Encounters: 10/28/23 (!) 142 kg (312 lb 11.2 oz) Nutrition Diagnosis: Increased nutrient needs related to increase demand for energy/nutrients as evidenced by wounds Inadequate oral intake related to acute injury/trauma as evidenced by NPO or clear liquid status due to medical condition, poor intake prior to admission Nutrition Interventions: Food and/or Nutrient Delivery: Continue Current Diet, Start ONS Nutrition Education/Counseling: No recommendation at this time Coordination of Nutrition Care: Continue to monitor while inpatient Plan of Care discussed with: N/A Goals: Goals: Meet at least 75% of estimated needs Nutrition Monitoring and Evaluation: Behavioral-Environmental Outcomes: None Identified Food/Nutrient Intake Outcomes: Diet Advancement/Tolerance, Supplement Intake Physical Signs/Symptoms Outcomes: Biochemical Data, Weight, Skin, Nutrition Focused Physical Findings, GI Status, Fluid Status or Edema, Hemodynamic Status, Chewing or Swallowing Discharge Planning: Too soon to determine Katiuska Hill MS, RD, LD Contact: or [employer] Chat (dial [phone] from hospital phone) * Parker Rockwell MD - 10/28/2023 8:21 AM EDT Hospitalist Progress Note 10/28/2023 Subjective: Admit Date: 10/27/2023 PCP: ROCIO BARTLETT Room#: [id number] A Brief Hospital course: Melissa is a 58 y.o. male with past medical history below who presented to ED with healthcare acquired pneumonia. Hx significant for DMII, paraplegia, BATOOL, Hx of blood clots and resides at [facility]. (+) Chronic Bartlett, was recently found to have ESBL E coli UTI. Admitted 10/24 at [place] when he presented to ED for hypoxia and found to have pneumonia. Started on empiric Vancomycin/Merrem. Pt transferred to [facility] from [place] for CT Surgical specialty assessment for drainage of effusions. AdmitTED for further evaluation and management. - Transfer for Cardiothoracic surgical specialty assessment and drainage of loculations - Vanc/Merrem - reported allergy/intolerance to PCNs - Per documentation Ucx (+) for ESBL E coli, Klebiella and Proteus. Respiratory workup noted Covid/Influenza/RSV negative. Strep, Legionella negative. CT surgery seen the patient, recommends no acute surgical intervention at this time, recommends pulmonology for possible bronchoscopy, daily chest x-ray, can consider 3 attempts at thoracentesis if enlargement of pleural effusion seen in future days Pulmonary consulted ID consulted Interval History: 10/28/2023-No overnight issues. Patient is seen and examined Resting in his bed, NAD States he feels okay but still have some shortness of breath Labs reviewed sodium 134, hemoglobin 7.8 Case and plan discussed with patient and bedside nurse. All questions answered. Past Medical History: History reviewed. No pertinent past medical history. Adult diet Clear liquid 24HR INTAKE/OUTPUT: Intake/Output Summary (Last 24 hours) at 10/28/2023 0821 Last data filed at 10/28/2023 0400 Gross per 24 hour Intake 880 ml Output 1850 ml Net -970 ml LABS: CBC: Recent Labs 10/28/23 043 WBC 7.9 RBC 3.72* HGB 7.8* HCT 28.4* MCV 76.3* RDW 19.4* PLT 430 BMP: Recent Labs 10/27/23231010/28/23 043 NA 133* 134* K 4.4 4.1 CL 99 100 CO2 29 29 BUN 17 17 CREATININE 0.61* 0.56* GLUCOSE 154* 144* CALCIUM 8.3* 8.5 ANIONGAP 4 5 LIVER PROFILE: Recent Labs 10/27/23231010/28/23435 AST 31 32 ALT 15 15 BILITOT 0.3 0.3 ALKPHOS 109 97 PROT 6.7 6.7 PT/INR: No results for input(s): PROTIME, INR in the last 72 hours. CARDIAC ENZYMES: No results for input(s): TROPONINI in the last 72 hours. Procalcitonin: No results found for: PROCAL COVID-19 PCR: No results for input(s): COVID19 in the last 72 hours. Objective: Vitals: BP 132/76 (BP Location: Right arm, Patient Position: Lying) Pulse 84 Temp 36.9 C (98.4 F) (Temporal) Resp 16 Ht 5' 7 (1.702 m) Wt (!) 312 lb 11.2 oz (142 kg) SpO2 98% BMI 48.98kg/m Pulse Ox: SpO2 Av % Min: 88 % Max: 98 % Supplemental O2: O2 Flow Rate (L/min): 4 L/min Physical Exam Constitutional: Appearance: He is obese. HENT: Head: Normocephalic and atraumatic. Mouth/Throat: Mouth: Mucous membranes are moist. Cardiovascular: Rate and Rhythm: Normal rate and regular rhythm. Pulmonary: Effort: Pulmonary effort is normal. Breath sounds: Decreased air movement present. Abdominal: Palpations: Abdomen is soft. Skin: General: Skin is warm and dry. Neurological: Mental Status: He is alert. Psychiatric: Mood and Affect: Mood normal. Medications: Scheduled PRN amLODIPine, 10 mg, Oral, Daily [Held by provider] apixaban, 5 mg, Oral, BID carvedilol, 12.5 mg, Oral, BID WC cetirizine, 10 mg, Oral, Daily gabapentin, 100 mg, Oral, BID guaiFENesin, 1,200 mg, Oral, BID insulin glargine, 24 Units, SubCUTAneous, q AM insulin lispro, 0-6 Units, SubCUTAneous, TID WC And insulin lispro, 0-6 Units, SubCUTAneous, Nightly melatonin, 6 mg, Oral, Nightly meropenem, 2,000 mg, IntraVENous, q8h morphine, 30 mg, Oral, BID pantoprazole, 40 mg, Oral, qAM AC senna-docusate sodium, 2 tablet, Oral, Nightly sodium chloride 0.9%, 5-40 mL, IntraVENous, q12h vancomycin, 1,750 mg, IntraVENous, q12h PRN medications: acetaminophen OR acetaminophen, albuterol, carboxymethylcellulose PF, dextrose, dextrose, glucagon (rDNA), glucose, methocarbamol, naloxone, ondansetron ODT OR ondansetron, oxyCODONE, polyethylene glycol (PEG) 3350, sodium chloride, sodium chloride 0.9% Continuous Assessment Data: (CAT1) Reviewed 3 or more notes from different specialty or health system (each=1). (CAT1) Reviewed 3 or more labs/studies ordered by another provider not previously counted (each=1, panels count as 1). (CAT1) Ordered 2 new labs and/or studies (each=1, panels count as 1). (LOW: 2x CAT1 or independent historian MOD: 3x CAT1 or 1x CAT3 EXTENSIVE: 3x CAT1 and 1x CAT3) Acute, acute on chronic, unstable/uncontrolled chronic problems/diagnoses: Healthcare Acquired Pneumonia Complicated Urinary Tract Infection Stable chronic problems affecting care, new non-acute diagnoses: Diabetes Mellitus - Continue home diabetic regimen - Check blood glucose qACHS w/ insulin sliding scale coverage BATOOL on BiPAP - Ordered for at bedtime and PRN Chronic Pain - Morphine 30mg PO BID - Oxycodone 5mg PRN Plan As a result of the above findings & factors, the following mgmt was pursued: - CT Surgery consulted seen the patient, appreciated - ID specialty consulted - Pulmonology specialty consulted - Incentive spirometry, Mucinex BID to encourage pulmonary hygiene - Eliquis held pending specialist assessment for procedure - Supplemental O2 as needed to maintain SpO2 >90% -ESBL Klebsiella - Pt currently on Vanc/Merrem - am labs, replace lytes prn - PT/OT/CM/SW - delirium precautions: increase activity, limit nighttime disturbances, and avoid anticholinergic meds, benzos, etc - DVT prophylaxis: SCDs and encourage ambulation Complexity: Acute illness or injury posing a threat to life or body function (HIGH). Risk: Advance Directive: Full Code Anticipated Discharge - Date -TBD - Location -TBD - Pending the following -clinical course, consult recommendations Total time spent (which include face to face and non face to face encounters) : 44 minutes Extended Emergency Contact Information Primary Emergency Contact: Marci Elias Mobile Relation: Mother Preferred language: German Grab Jack Man needed? No Secondary Emergency Contact: Aletha Brasher Mobile Relation: Sibling Preferred language: German Parker Rockwell MD Division of Hospitalist Medicine Inpatient Medical Services[place] [place] documented in this encounterSDayton VA Medical [id number] Note* Care Coordination - MAHNAZ De La Cruz - 11/03/2023 1:25 PM EDT SW cont to follow with TCC for return to [place]. Amb request in Round Trip as Will Call. [facility] [id number] Note* Care Coordination - MAHNAZ De La Cruz - 11/03/2023 1:25 PM EDT SW cont to follow with TCC for return to [place]. Amb request in Round Trip as Will Call. 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 No surgical intervention needed to his chronic decub ulcers, and anali was dc'd by Surgery resident yesterday. Voiding per bartlett. Awaiting return to SNF. Objective: Vitals: Patient Vitals for the past 24 hrs: BP Temp Temp src Pulse Resp SpO2 Weight 11/03/23 0755 140/94 (!) 35.9 ?C (96.7 ?F) Temporal 81 18 99 % -- 11/03/23 0307 117/59 (!) 35.6 ?C (96.1 ?F) Temporal 84 18 94 % (!) 143 kg (315 lb 0.6 oz) 11/02/23 2313 140/69 (!) 35.9 ?C (96.6 ?F) Temporal 94 18 96 % -- 11/02/23 2000 127/63 36.7 ?C (98.1 ?F) Temporal 90 16 97 % -- 11/02/23 1516 132/65 (!) 35.9 ?C (96.6 ?F) Temporal 90 16 98 % -- Physical Exam Vitals reviewed. Constitutional: General: He is not in acute distress. Appearance: He is obese. He is not ill-appearing. Cardiovascular: Rate and Rhythm: Normal rate and regular rhythm. Pulses: Normal pulses. Heart sounds: Normal heart sounds. No murmur heard. Pulmonary: Effort: Pulmonary effort is normal. No respiratory distress. Breath sounds: Normal breath sounds. Abdominal: General: There is no distension. Palpations: Abdomen is soft. Tenderness: There is no abdominal tenderness (ostomy). Musculoskeletal: General: Signs of injury (decub ulcer not examined, but photo per WC/Surgery note reviewed) present. Skin: Findings: No erythema or rash. Neurological: Mental Status: He is alert. Motor: Weakness (to legs, with atrophy) present. Labs: Lab Results Component Value Date/Time NA 135 11/03/2023258 K 4.0 11/03/2023258 CL 99 11/03/2023258 CO2 31 (H) 11/03/2023258 BUN 13 11/03/2023258 CREATININE 0.58 (L) 11/03/2023258 GLUCOSE 214 (H) 11/03/2023258 CALCIUM 8.1 (L) 11/03/2023258 PROT 6.6 11/03/2023258 BILITOT 0.3 11/03/2023258 ALKPHOS 96 11/03/2023258 AST 27 11/03/2023258 ALT 14 11/03/2023258 PROCAL 0.31 (H) 10/28/2023 0436 Lab Results Component Value Date/Time WBC 11.8 (H) 11/03/2023258 HGB 7.2 (L) 11/03/2023258 HCT 27.3 (L) 11/03/2023258 PLT 459 (H) 11/03/2023258 Micro: No resp cultures obtained Lines: PICC Ostomy bartlett Radiography/Echo/Other: reviewed Antimicrobials, Start/End Dates: Ertapenem to 11/13 planned Impression: 58 M admitted with RLL PNA, with effusion?loculated on imaging, unable to perform thhoracentesis at OSH, here for CTS evaluation. Clinically he is imprving on empiric tx. H/o recent CAUTI with ESBL- GNRs- from traumatic bartlett and clots, with bladder outlet obstruction symptoms- good UOP now Sacral decub ulcer- wound care for now- Surgery dc'd nagi drain, prior I+D 07/2023 [facility] admission H/o C auris + Urine culture, colonized, maintain on contact precautions. Chronic anemia Paraplegia secondary to fall DMT2 M obesity Overall HD stable, nontoxic. Plan: No new recommendations, OPAT order in place. OK to DC to [facility]CF from [place] [id number] [facility] Wound/Ostomy Progress Note Melissa Elias AGE: 58 y.o. GENDER: male : 1965 Subjective: HISTORY of PRESENT ILLNESS HPI Melissa Elias is a 58 y.o. male who presents for wound care and ostomy management. History Context: Hx significant for DMII, paraplegia, BATOOL, Hx of blood clots and resides at [facility]. (+) Chronic Bartlett, was recently found to have ESBL E coli UTI. Admitted 10/24 at [place] when he presented to ED for hypoxia and found to have pneumonia. Started on empiric Vancomycin/Merrem. Pt transferred to [facility] from [place] InPt for CT Surgical specialty assessment for drainage of effusions. Wound and ostomy care consulted for pressure injury and colostomy. Dressing intact. PAST MEDICAL HISTORY History reviewed. No pertinent past medical history. PAST SURGICAL HISTORY History reviewed. No pertinent surgical history. FAMILY HISTORY No family history on file. SOCIAL HISTORY ALLERGIES No Known Allergies MEDICATIONS No current facility-administered medications on file prior to encounter. No current outpatient medications on file prior to encounter. REVIEW OF SYSTEMS Pertinent items are noted in HPI. Objective: BP 140/94 (BP Location: Left arm, Patient Position: Sitting) Pulse 81 Temp (!) 35.9 ?C (96.7 ?F) (Temporal) Resp 18 Ht 1.702 m (5' 7) Wt (!) 143 kg (315 lb 0.6 oz) SpO2 99% BMI 49.34 kg/m? PHYSICAL EXAM General appearance: in no apparent distress, well developed and well nourished, non-toxic, in no respiratory distress and acyanotic, and alert, obese Skin: warm and dry Pulmonary: Normal effort, no respiratory distress, no cyanosis Abdomen: Colostomy to RLQ. Stoma pink and moist through pouch. Small firm stool in pouch. Pouch intact Sacrum: 19.0cmx30.cmx5.5cm. [place]/red granulation with yellow slough to base of wound. Moderate serosang drainage. Periwound fragile with excoriation. (Photo from yesterday. No nagi drain in place currently) LABS CBC: Lab Results Component Value Date WBC 11.8 (H) 11/03/2023 HGB 7.2 (L) 11/03/2023 HCT 27.3 (L) 11/03/2023 MCV 75.2 (L) 11/03/2023 PLT 459 (H) 11/03/2023 BMP: Lab Results Component Value Date NA 135 11/03/2023 K 4.0 11/03/2023 CL 99 11/03/2023 CO2 31 (H) 11/03/2023 BUN 13 11/03/2023 CREATININE 0.58 (L) 11/03/2023 PT/INR: No results found for: PROTIME, INR Prealbumin: No results found for: PREALBUMIN Albumin:No components found for: LABALBU Sed Rate:No results found for: SEDRATE Micro: No components found for: BC Assessment/Plan: Sacrum: Pressure Injury (Stage 4) - Clean with NS, pack with NS moist Kerlix then cover with DCD BID and PRN - Envella bed - Reposition q2hrs - Incontinent check q2hrs Colostomy home going orders: - 2 05/19 pouch [place]: [id number] [place]: [phone] - 2 05/19 flange [place]: [address] [place]: [phone] - Adapt ring [place]: [id number] [place]: [phone] - Skin prep [place]: 7917 Change pouch twice a week and PRN for leaking Empty pouch when 1/3 to 1/2 full and PRN Follow up at outpatient wound care center. Any questions or concerns please secure chat [facility] wound/ostomy. Thank you for the consult! I personally obtained the fournier and critical portions of the history and physical exam. I reviewed the labs, imaging studies, and electronic medical record. I reviewed the chart documentation and discussed the patient with treatment team members. I have edited the note to reflect my clinical findings and my assessment and plan. Please note, the time of this note does not reflect the time I saw this patient today, but the time of this documentaton. Portions of this note including HPI, ROS, impression/plan, and examination may have been copied forward from admission to today as to provide important historical information essential in contributing to medical decision making. Documentation has been reviewed and edited as necessary to support clinical decision making for today's visit and to reflect my own independent evaluation of this patient. Decision making for today's visit and to reflect my own independent evaluation of this patient. [facility] [id number] NoteHospitalist Progress Note 11/03/2023 Subjective: Admit Date: 10/27/2023 PCP: ROCIO BARTLETT Room#: [id number] A Brief Hospital course: Melissa is a 58 y.o. male with past medical history below who presented to ED with healthcare acquired pneumonia. Hx significant for DMII, paraplegia, BATOOL, Hx of blood clots and resides at [facility]. (+) Chronic Bartlett, was recently found to have ESBL E coli UTI. Admitted 10/24 at [place] when he presented to ED for hypoxia and found to have pneumonia. Started on empiric Vancomycin/Merrem. Pt transferred to [facility] from [place] for CT Surgical specialty assessment for drainage of effusions. AdmitTED for further evaluation and management. - Transfer for Cardiothoracic surgical specialty assessment and drainage of loculations - Vanc/Merrem - reported allergy/intolerance to PCNs - Per documentation Ucx (+) for ESBL E coli, Klebiella and Proteus. Respiratory workup noted Covid/Influenza/RSV negative. Strep, Legionella negative. CT surgery seen the patient, recommends no acute surgical intervention at this time. Pulmonary consulted ID consulted Interval History: 11/02/2023-patient alert, chart reviewed, denies any complaints. Patient apparently has had gluteal drain placed in July and was recommended to have it removed in 60 days. 11/02 patient alert and conversant, we discussed discharge plan to SNF, lower extremity immobility, Atbx regimen with revision/titration per ID team. General improvement to systemic symptoms. No acute distress or complaint aware of planned discharge disposition Adult diet Regular; Isolation Tray (Disposables); 4 carb choices (60 gm/meal) 24HR INTAKE/OUTPUT: Intake/Output Summary (Last 24 hours) at 11/03/2023 1005 Last data filed at 11/03/2023 0600 Gross per 24 hour Intake 1410 ml Output 2800 ml Net -1390 ml LABS: CBC: Recent Labs 11/01/23 0015 11/02/23 0626 11/03/23 0259 WBC 11.3* 9.2 11.8* RBC 3.63* 3.59* 3.63* HGB 7.3* 7.3* 7.2* HCT 26.9* 26.7* 27.3* MCV 74.1* 74.4* 75.2* RDW 19.9* 19.8* 19.8* PLT 467* 423 459* BMP: Recent Labs 11/01/23 0015 11/02/23 0626 11/03/23 0259 NA 136 137 135 K 4.0 4.2 4.0 CL 101 101 99 CO2 31* 31* 31* BUN 11 14 13 CREATININE 0.53* 0.47* 0.58* GLUCOSE 167* 146* 214* CALCIUM 8.1* 8.4 8.1* ANIONGAP 3 5 5 LIVER PROFILE: Recent Labs 11/01/23 0015 11/02/23 0626 11/03/23 0259 AST 23 19 27 ALT 13 13 14 BILITOT 0.5 0.4 0.3 ALKPHOS 84 82 96 PROT 6.4 6.6 6.6 PT/INR: No results for input(s): PROTIME, INR in the last 72 hours. CARDIAC ENZYMES: No results for input(s): TROPONINI in the last 72 hours. Procalcitonin: No results found for: PROCAL COVID-19 PCR: No results for input(s): COVID19 in the last 72 hours. Objective: Vitals: BP 140/94 (BP Location: Left arm, Patient Position: Sitting) Pulse 81 Temp (!) 35.9 ?C (96.7 ?F) (Temporal) Resp 18 Ht 5' 7 (1.702 m) Wt (!) 315 lb 0.6 oz (143 kg) SpO2 99% BMI 49.34 kg/m? Pulse Ox: SpO2 Av.2 % Min: 94 % Max: 99 % Supplemental O2: O2 Flow Rate (L/min): 4 L/min Physical Exam Constitutional: Appearance: He is obese. Eyes: Extraocular Movements: Extraocular movements intact. Cardiovascular: Rate and Rhythm: Normal rate and regular rhythm. Pulmonary: Effort: Pulmonary effort is normal. Abdominal: Palpations: Abdomen is soft. Neurological: Mental Status: He is alert and oriented to person, place, and time. Mental status is at baseline. Psychiatric: Mood and Affect: Mood normal. Behavior: Behavior normal. Medications: Scheduled PRN amLODIPine, 10 mg, Oral, Daily apixaban, 5 mg, Oral, BID carvedilol, 12.5 mg, Oral, BID WC cetirizine, 10 mg, Oral, Daily ertapenem, 1,000 mg, IntraVENous, q24h gabapentin, 100 mg, Oral, BID guaiFENesin, 1,200 mg, Oral, BID heparin flush, 250 Units, IntraCATHeter, q12h insulin glargine, 24 Units, SubCUTAneous, q AM insulin lispro, 0-6 Units, SubCUTAneous, TID WC And insulin lispro, 0-6 Units, SubCUTAneous, Nightly melatonin, 6 mg, Oral, Nightly morphine CR, 30 mg, Oral, 2 times per day pantoprazole, 40 mg, Oral, qAM AC senna-docusate sodium, 2 tablet, Oral, Nightly sodium chloride 0.9%, 10 mL, IntraCATHeter, q12h sodium chloride 0.9%, 5-40 mL, IntraVENous, q12h PRN medications: acetaminophen OR acetaminophen, albuterol, carboxymethylcellulose PF, dextrose, dextrose, diphenhydrAMINE, glucagon (rDNA), glucose, heparin flush, methocarbamol, naloxone, ondansetron ODT OR ondansetron, oxyCODONE, polyethylene glycol (PEG) 3350, sodium chloride, sodium chloride 0.9%, sodium chloride 0.9% Continuous Assessment Data: (CAT1) Reviewed 3 or more notes from different specialty or health system (each=1). (CAT1) Reviewed 3 or more labs/studies ordered by another provider not previously counted (each=1, panels count as 1). (LOW: 2x CAT1 or independent historian MOD: 3x CA (more content not included)...[facility]06-20-2024 Note* Care Coordination - Princess Adame - 11/03/2023 8:51 AM EDT Updated PT note placed to [facility] via [facility] per TCC request. [facility] [id number] Note* Care Coordination - Princess Adame - 11/03/2023 8:51 AM EDT Updated PT note placed to [facility] via [facility] per TCC request. [facility] [id number] Note* Care Coordination - Bandar Jules RN - 11/03/2023 8:30 AM EDT TCC tasked [facility] to send updated therapy noted to [facility]. [facility] [id number] Note* Care Coordination - Bandar Jules RN - 11/03/2023 8:30 AM EDT TCC tasked [employer] to send updated therapy noted to [facility]. [facility] [id number] Plan of care note* Care Plan - Sarah Thomas RN - 11/03/2023 1:01 AM EDT Problem: Knowledge Deficit Goal: Patient/family/caregiver demonstrates understanding of disease process, treatment plan, medications, and discharge instructions Outcome: Progressing Problem: Potential for Compromised Skin Integrity Goal: Skin Integrity is Maintained or Improved Outcome: Progressing Goal: Nutritional status is improving Outcome: Progressing Problem: Urinary Incontinence Goal: Perineal skin integrity is maintained or improved Outcome: Progressing Problem: Hemodynamic Status Goal: Patient's vitals signs are stable Outcome: Progressing Problem: Excessive Fluid Volume Goal: Fluid and electrolyte balance are achieved/maintained Outcome: Progressing Problem: Inadequate Gas Exchange Goal: Nutritional status is improving Outcome: Progressing Goal: Patient is adequately oxygenated and ventilation is improved Outcome: Progressing Problem: Activity Intolerance/Impaired Mobility Goal: Mobility/activity is maintained at optimum level for patient Outcome: Progressing Problem: Nutrition Goal: Nutritional status is improving Outcome: Progressing Problem: Problem Interventions Goal: Assess Nutritional Intake Outcome: Progressing The patient is Moderately Stable - Low risk of patient condition declining or worsening The patient's goals for the shift include To breath better The clinical goals for the shift include Pt safety [facility] [id number] NoteHospitalist Progress Note 11/02/2023 Subjective: Admit Date: 10/27/2023 PCP: ROCIO BARTLETT Room#: [id number] A Brief Hospital course: Melissa is a 58 y.o. male with past medical history below who presented to ED with healthcare acquired pneumonia. Hx significant for DMII, paraplegia, BATOOL, Hx of blood clots and resides at [facility]. (+) Chronic Bartlett, was recently found to have ESBL E coli UTI. Admitted 10/24 at [place] when he presented to ED for hypoxia and found to have pneumonia. Started on empiric Vancomycin/Merrem. Pt transferred to [facility] from [place] for CT Surgical specialty assessment for drainage of effusions. AdmitTED for further evaluation and management. - Transfer for Cardiothoracic surgical specialty assessment and drainage of loculations - Vanc/Merrem - reported allergy/intolerance to PCNs - Per documentation Ucx (+) for ESBL E coli, Klebiella and Proteus. Respiratory workup noted Covid/Influenza/RSV negative. Strep, Legionella negative. CT surgery seen the patient, recommends no acute surgical intervention at this time. Pulmonary consulted ID consulted Interval History: 11/02/2023-patient alert, chart reviewed, denies any complaints. Patient apparently has had gluteal drain placed in July and was recommended to have it removed in 60 days. Adult diet Regular; Isolation Tray (Disposables); 4 carb choices (60 gm/meal) 24HR INTAKE/OUTPUT: Intake/Output Summary (Last 24 hours) at 11/02/2023 1402 Last data filed at 11/02/2023 1115 Gross per 24 hour Intake 940 ml Output 2250 ml Net -1310 ml LABS: CBC: Recent Labs 10/31/23 0211 11/01/23 0015 11/02/23 0626 WBC 9.3 11.3* 9.2 RBC 3.80* 3.63* 3.59* HGB 7.7* 7.3* 7.3* HCT 28.4* 26.9* 26.7* MCV 74.7* 74.1* 74.4* RDW 19.9* 19.9* 19.8* PLT 486* 467* 423 BMP: Recent Labs 10/31/23 0211 11/01/23 0015 11/02/23 0626 NA 136 136 137 K 3.9 4.0 4.2 CL 102 101 101 CO2 29 31* 31* BUN 12 11 14 CREATININE 0.60* 0.53* 0.47* GLUCOSE 207* 167* 146* CALCIUM 8.3* 8.1* 8.4 ANIONGAP 5 3 5 LIVER PROFILE: Recent Labs 10/31/23 02111/01/23 0015 11/02/23 0626 AST 19 23 19 ALT 14 13 13 BILITOT 0.3 0.5 0.4 ALKPHOS 87 84 82 PROT 6.5 6.4 6.6 PT/INR: No results for input(s): PROTIME, INR in the last 72 hours. CARDIAC ENZYMES: No results for input(s): TROPONINI in the last 72 hours. Procalcitonin: No results found for: PROCAL COVID-19 PCR: No results for input(s): COVID19 in the last 72 hours. Objective: Vitals: BP 119/76 (BP Location: Left arm, Patient Position: Sitting) Pulse 88 Temp 36.2 ?C (97.1 ?F) (Temporal) Resp 16 Ht 5' 7 (1.702 m) Wt (!) 309 lb 12.8 oz (141 kg) SpO2 99% BMI 48.52 kg/m? Pulse Ox: SpO2 Av.1 % Min: 93 % Max: 99 % Supplemental O2: O2 Flow Rate (L/min): 4 L/min Physical Exam Cardiovascular: Rate and Rhythm: Normal rate and regular rhythm. Pulmonary: Effort: Pulmonary effort is normal. Abdominal: Palpations: Abdomen is soft. Neurological: Mental Status: He is alert and oriented to person, place, and time. Mental status is at baseline. Medications: Scheduled PRN amLODIPine, 10 mg, Oral, Daily apixaban, 5 mg, Oral, BID carvedilol, 12.5 mg, Oral, BID WC cetirizine, 10 mg, Oral, Daily ertapenem, 1,000 mg, IntraVENous, q24h gabapentin, 100 mg, Oral, BID guaiFENesin, 1,200 mg, Oral, BID heparin flush, 250 Units, IntraCATHeter, q12h insulin glargine, 24 Units, SubCUTAneous, q AM insulin lispro, 0-6 Units, SubCUTAneous, TID WC And insulin lispro, 0-6 Units, SubCUTAneous, Nightly melatonin, 6 mg, Oral, Nightly morphine CR, 30 mg, Oral, 2 times per day pantoprazole, 40 mg, Oral, qAM AC senna-docusate sodium, 2 tablet, Oral, Nightly sodium chloride 0.9%, 10 mL, IntraCATHeter, q12h sodium chloride 0.9%, 5-40 mL, IntraVENous, q12h PRN medications: acetaminophen OR acetaminophen, albuterol, carboxymethylcellulose PF, dextrose, dextrose, diphenhydrAMINE, glucagon (rDNA), glucose, heparin flush, methocarbamol, naloxone, ondansetron ODT OR ondansetron, oxyCODONE, polyethylene glycol (PEG) 3350, sodium chloride, sodium chloride 0.9%, sodium chloride 0.9% Continuous Assessment Acute, acute on chronic, unstable/uncontrolled chronic problems/diagnoses: Healthcare Acquired Pneumonia Complicated Urinary Tract Infection Acute on chronic anemia Stable chronic problems affecting care, new non-acute diagnoses: Diabetes Mellitus BATOOL on BiPAP Chronic Pain 4. Paraplegia Plan As a result of the above findings & factors, the following mgmt was pursued: -No intervention per CT surgery and no need for bronchoscopy at this time per pulmonary -Follow-up with ID, continue current antibiotics, PICC line in place -Consult general surgery for drain removal -H&H trending down, monitor and transfuse if less than 7 -Continue Eliquis, monitor H&H - Supplemental O2 as needed to maintai (more content not included)...[facility]06-19-2024 Plan of care note* Care Plan - Madina Ballard RN - 11/02/2023 1:19 PM EDT Problem: Knowledge Deficit Goal: Patient/family/caregiver demonstrates understanding of disease process, treatment plan, medications, and discharge instructions 11/02/2023 1318 by Madina Ballard RN Outcome: Progressing Flowsheets (Taken 11/02/2023 1243) Patient/family/caregiver demonstrates understanding of disease process, treatment plan, medications, and discharge instructions: Complete learning assessment and assess knowledge base Provide teaching at level of understanding Provide teaching via preferred learning methods 11/02/2023 1243 by Madina Ballard RN Outcome: Progressing Flowsheets (Taken 11/02/2023 1243) Patient/family/caregiver demonstrates understanding of disease process, treatment plan, medications, and discharge instructions: Complete learning assessment and assess knowledge base Provide teaching at level of understanding Provide teaching via preferred learning methods Problem: Potential for Compromised Skin Integrity Goal: Skin Integrity is Maintained or Improved 11/02/2023 1318 by Madina Ballard RN Outcome: Progressing Flowsheets (Taken 11/02/2023 1243) Skin integrity is maintained or improved: Assess and monitor skin integrity Collaborate with interdisciplinary team and initiate plans and interventions as needed Identify patients at risk for skin breakdown on admission and per policy Turn patient Avoid shearing Relieve pressure to bony prominences Keep skin clean and dry Alternate a full bath with partial baths for elderly 11/02/2023 1243 by Madina Ballard RN Outcome: Progressing Flowsheets (Taken 11/02/2023 1243) Skin integrity is maintained or improved: Assess and monitor skin integrity Collaborate with interdisciplinary team and initiate plans and interventions as needed Identify patients at risk for skin breakdown on admission and per policy Turn patient Avoid shearing Relieve pressure to bony prominences Keep skin clean and dry Alternate a full bath with partial baths for elderly [facility] [id number] Plan of care note* Care Plan - Madina Ballard RN - 11/02/2023 12:43 PM EDT Problem: Knowledge Deficit Goal: Patient/family/caregiver demonstrates understanding of disease process, treatment plan, medications, and discharge instructions Outcome: Progressing Flowsheets (Taken 11/02/2023 1243) Patient/family/caregiver demonstrates understanding of disease process, treatment plan, medications, and discharge instructions: Complete learning assessment and assess knowledge base Provide teaching at level of understanding Provide teaching via preferred learning methods Problem: Potential for Compromised Skin Integrity Goal: Skin Integrity is Maintained or Improved Outcome: Progressing Flowsheets (Taken 11/02/2023 1243) Skin integrity is maintained or improved: Assess and monitor skin integrity Collaborate with interdisciplinary team and initiate plans and interventions as needed Identify patients at risk for skin breakdown on admission and per policy Turn patient Avoid shearing Relieve pressure to bony prominences Keep skin clean and dry Alternate a full bath with partial baths for elderly [facility] [id number] NoteCare Management Progress Note Remains on 5W. Continues on Heparin gtt. RA. Awaiting clinical improvement and recommendations. Plan is home independent. TCC to follow. Discharge Milestones and Delays Expected date/time: 11/04/2023 Expected discharge disposition: [facility] Facility Discharge Milestones Place discharge order Complete med reconciliation Case mgmt discharge readiness Clinical Stability Diagnsotic Workup Facility Choice Selection Facility Pre-cert Patient Education Complete Expected Discharge History Expected Date/Time Set By Reviewed At 11/04/2023 Bandar Jules RN 11/02/2023 8:00 AM 11/01/2023 MAHNAZ De La Cruz 11/01/2023 9:34 AM Waiting on IV Abx determination by ID. 11/02/2023 Taina Prieto RN 11/01/2023 9:23 AM 11/01/2023 Taina Prieto RN 10/31/2023 9:01 AM 10/30/2023 Ellyn De León MD 10/27/2023 10:04 PM Length of Stay (Days): 6 [facility] - Infectious Diseases Attending Progress Note Subjective: No acute events- afebrile, denies cough or SOB now. Surgery resident in to assess sacral decubitus ulcer. Objective: Vitals: Patient Vitals for the past 24 hrs: BP Temp Temp src Pulse Resp SpO2 Weight 11/02/23 0727 129/64 (!) 35.9 ?C (96.7 ?F) Temporal 77 18 94 % -- 11/02/23 0315 140/65 36.1 ?C (97 ?F) Temporal 80 17 93 % (!) 141 kg (309 lb 12.8 oz) 11/01/23 2303 128/64 (!) 35.9 ?C (96.6 ?F) Temporal 88 18 93 % -- 11/01/23 1954 134/60 36.9 ?C (98.4 ?F) Temporal 54 17 97 % -- 11/01/23 1551 147/71 (!) 35.9 ?C (96.6 ?F) Temporal 87 16 94 % -- 11/01/23 1414 -- -- -- 89 20 96 % -- Physical Exam Vitals reviewed. Constitutional: Appearance: Normal appearance. He is obese. He is ill-appearing. Pulmonary: Effort: Pulmonary effort is normal. Neurological: Mental Status: He is alert. Rest of exam deferred Labs: Lab Results Component Value Date/Time NA 137 11/02/2023 0626 K 4.2 11/02/2023 0626 CL 101 11/02/2023 0626 CO2 31 (H) 11/02/2023 0626 BUN 14 11/02/2023 0626 CREATININE 0.47 (L) 11/02/2023 0626 GLUCOSE 146 (H) 11/02/2023 0626 CALCIUM 8.4 11/02/2023 0626 PROT 6.6 11/02/2023 0626 BILITOT 0.4 11/02/2023 0626 ALKPHOS 82 11/02/2023 0626 AST 19 11/02/2023 0626 ALT 13 11/02/2023 0626 PROCAL 0.31 (H) 10/28/2023 0436 Lab Results Component Value Date/Time WBC 9.2 11/02/2023 0626 HGB 7.3 (L) 11/02/2023 0626 HCT 26.7 (L) 11/02/2023 0626 PLT 423 11/02/2023 0626 Micro: reviewed SA PCR: neg No respiratory culture obtained Lines: PICC 10/30, Ostomy bartlett Radiography/Echo/Other: reviewed 11/01 CXR: pending 10/31 CXR: Impression: 1. Mild progression of right lower lobe infiltrate and effusion. 2. Prominence of the central pulmonary vasculature consistent with moderate congestive heart failure/fluid overload. Antimicrobials, Start/End Dates: Meropenem Impression: 58 M admitted with RLL PNA, with effusion?loculated on imaging, unable to perform thhoracentesis at OSH, here for CTS evaluation. Clinically he is imprving on empiric tx. H/o recent CAUTI with ESBL- GNRs- from traumatic bartlett and clots, with bladder outlet obstruction symptoms- good UOP now Sacral decub ulcer- wound care for now- Surgery to asess H/o C auris + Urine culture, colonized, maintain on contact precautions. Chronic anemia Paraplegia secondary to fall DMT2 M obesity Overall HD stable, nontoxic. Plan: Continue empiric antibiotic to treat for total 3 week course. OPAT order in chart. OK to DC to ECF from [place] [id number] Note* Care Coordination - Bandar Jules RN - 11/02/2023 8:43 AM EDT Images from the original note were not included. Care Management Progress Note Remains on 5W. OPAT in media. TCC tasked [employer]TERY [employer]ER to send to [facility] per request for cost. Plan is [facility] when medically ready. TCC to follow. Discharge Milestones and Delays Expected date/time: 11/04/2023 Expected discharge disposition: [facility] Facility Discharge Milestones Place discharge order Complete med reconciliation Case mgmt discharge readiness Clinical Stability Diagnsotic Workup Facility Choice Selection Facility Pre-cert Patient Education Complete Expected Discharge History Expected Date/Time Set By Reviewed At 11/04/2023 Bandar Jules RN 11/02/2023 8:00 AM 11/01/2023 MAHNAZ De La Cruz 11/01/2023 9:34 AM Waiting on IV Abx determination by ID. 11/02/2023 Taina Prieto RN 11/01/2023 9:23 AM 11/01/2023 Taina Prieto RN 10/31/2023 9:01 AM 10/30/2023 Ellyn De León MD 10/27/2023 10:04 PM Length of Stay (Days): 6 GMLOS: 4.1 [facility] [id number] Note* Care Coordination - Bandar Jules RN - 11/02/2023 8:43 AM EDT Images from the original note were not included. Care Management Progress Note Remains on 5W. OPAT in media. TCC tasked BATTERY LOADER to send to [facility] per request for cost. Plan is [facility] [place] when medically ready. TCC to follow. Discharge Milestones and Delays Expected date/time: 11/04/2023 Expected discharge disposition: [facility] Facility Discharge Milestones Place discharge order Complete med reconciliation Case mgmt discharge readiness Clinical Stability Diagnsotic Workup Facility Choice Selection Facility Pre-cert Patient Education Complete Expected Discharge History Expected Date/Time Set By Reviewed At 11/04/2023 Bandar Jules RN 11/02/2023 8:00 AM 11/01/2023 MAHNAZ De La Cruz 11/01/2023 9:34 AM Waiting on IV Abx determination by ID. 11/02/2023 Taina Prieto RN 11/01/2023 9:23 AM 11/01/2023 Taina Prieto RN 10/31/2023 9:01 AM 10/30/2023 Ellyn De León MD 10/27/2023 10:04 PM Length of Stay (Days): 6 GMLOS: 4.1 [facility] [id number] NoteCare Management Progress Note Remains on 5W. OPAT in media. TCC tasked BATTERY LOADER to send to [facility] per request for cost. Plan is [facility] [place] when medically ready. TCC to follow. Discharge Milestones and Delays Expected date/time: 11/04/2023 Expected discharge disposition: [facility] Facility Discharge Milestones Place discharge order Complete med reconciliation Case mgmt discharge readiness Clinical Stability Diagnsotic Workup Facility Choice Selection Facility Pre-cert Patient Education Complete Expected Discharge History Expected Date/Time Set By Reviewed At 11/04/2023 Bandar Jules RN 11/02/2023 8:00 AM 11/01/2023 MAHNAZ De La Cruz 11/01/2023 9:34 AM Waiting on IV Abx determination by ID. 11/02/2023 Taina Prieto RN 11/01/2023 9:23 AM 11/01/2023 Taina Prieto RN 10/31/2023 9:01 AM 10/30/2023 Ellyn De León MD 10/27/2023 10:04 PM Length of Stay (Days): 6 [facility]* Care Coordination - Princess Adame - 11/02/2023 8:35 AM EDT OPAT placed to [facility] via [facility] per TCC request. [facility] [id number] Note* Care Coordination - Princess Adame - 11/02/2023 8:35 AM EDT OPAT placed to [facility] via [facility] per TCC request. [facility] [id number] Plan of care note* Care Plan - Erika Gaffney RN - 11/01/2023 10:33 PM EDT Patient verbalized understanding of evening scheduled and prn medications. He verbalized schedule of prn medications for this shift. Skin Integrity maintained. He denies nausea, reports adequate appetite. Perineal skin maintained. Vitals stable, urine clear yellow. Patient repositioning encouraged. [facility] [id number] Nurse Note* Erika Gaffney RN - 11/01/2023 8:10 PM EDT Patient awake, watching TV. Tele monitor leads off, and fixed. He is resting and refused turn at this time, states we can turn him next time. Safety measures maintained. Continuous tele monitoring inprogress. Respers easy. No acute distress. Will continue with plan of care. [facility] [id number] Nurse Note* Erika Gaffney RN - 11/01/2023 8:10 PM EDT Patient awake, watching TV. Tele monitor leads off, and fixed. He is resting and refused turn at this time, states we can turn him next time. Safety measures maintained. Continuous tele monitoring inprogress. Respers easy. No acute distress. Will continue with plan of care. * Sabine Kumar RN - 11/01/2023 10:02 AM EDT Chronic bartlett in place. RN order to remove via protocol. Provider notified. Bartlett to remain in place due to chronic reasons. documented in this [facility]06-18-2024 Note* Care Coordination - Princess Adame - 11/01/2023 2:19 PM EDT Updated notes placed to [facility] via [facility] per TCC request. Await review and response regarding ability to accept. TCC notified. [facility] [id number] Note* Care Coordination - Princses Adame - 11/01/2023 2:19 PM EDT Updated [facility] to [facility]. Await review and response regarding ability to accept. TCC notified. [facility] [id number] NoteOCCUPATIONAL THERAPY [facility] Initial Evaluation Name/MRN: Melissa Elias ([id number]) Evaluation Date: 11/01/2023 Date of : 1965 Admission Date: 10/27/2023 5:00 PM Age: 58 y.o. [facility]: [facility] Discharge Recommendation: [facility] Facility Other: tbd next level care Assessment IMPRESSION: Pt admit with pneumonia. Pt from SNF, baseline paralysis from waist down and has not sat EOB in several months. Pt receiving therapy at SNF and working on cones and rings per pt report. Pt able to complete self-care routine at bed level and demo's bilat tremors with intentional movements. Recommend SNF level therapies upon discharge to maximize functional independence Performance Deficits /Impairments: Decreased Functional Mobility, Decreased ADL status, Decreased Endurance, Decreased Sensation, Decreased Balance, Decreased High Level IADLs, Decreased Coordination, and Decreased Posture Prognosis: Good Decision Making: Medium Complexity Subjective Pt in bed upon OT arrival. Recently finished lunch tray Pain: RN managing pain. Past Medical History: History reviewed. No pertinent past medical history. Past Surgical History: History reviewed. No pertinent surgical history. Admission Diagnosis: Patient Active Problem List Diagnosis Date Noted Pneumonia, bacterial 10/27/2023 Decubitus ulcer of left ischium, stage 3 ([facility]) 08/01/2023 Sacral wound 08/01/2023 Skin ulcer of multiple sites of lower extremity, limited to breakdown of skin ([facility]) 08/01/2023 Pressure injury of buttock, unstageable ([facility]) 02/25/2023 Morbid obesity ([facility]) 02/08/2023 Pressure injury of skin of sacral region 02/08/2023 Type 2 diabetes mellitus with hyperglycemia ([facility]) 02/08/2023 Pressure injury of left heel, unstageable (HCC) 02/07/2023 Bilateral pulmonary embolism (HCC) 02/06/2023 Iron deficiency anemia 02/06/2023 Pressure injury of right buttock, stage 4 ([facility]) 02/06/2023 Heart failure, unspecified ([facility]) 12/14/2022 Retention of urine, unspecified 12/14/2022 Wedge compression fracture of t9-t10 vertebra, sequela 12/14/2022 Paraplegia ([facility]) 12/06/2022 Aspiration pneumonitis (CMS/HCC) (HCC) 12/05/2022 Venous stasis ulcer of lower extremity ([facility]) 12/02/2022 BATOOL (obstructive sleep apnea) 11/29/2022 Spinal stenosis 11/18/2022 Traumatic edema of thoracic spinal cord ([facility]) 11/18/2022 Controlled type 2 diabetes mellitus without complication ([facility]) 11/17/2022 Osteomyelitis of lumbar spine ([facility]) 02/16/2017 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 Fall Risk: Sarabia Fall Risk Score: 35 (Medium Risk) Precautions/Restrictions: contact precautions Family/Caregiver Present: none Overall Cognitive Status: WFL Overall Orientation Status: Oriented x4 Social/Functional History Patient admitted from SNF. Assistive Equipment: none Prior Level of Function ADL Assistance: Needs Assist Ambulation Assistance: Device(s) used: wheelchair - manual and kelli Non-Ambulatory Transfer Assistance: Needs Assist Objective ADLs Grooming: Independent, after setup setup at bed level d/t mobility limitations, setup to open containers Upper Extremity Assessment AROM: WFL PROM: WFL Strength: Exceptions: Grossly diminished, functional grossly throughout with exception to fine motor manipulation to open containers Vision: no visual deficits Hearing: normal Bed Mobility Per EMR, pt is MAX x 2 to dependent x 2 for all bed mobility Transfers/Functional Mobility NT Device(s) used: AM-PAC AM-PAC Inpatient Daily Activity Raw Score: 12 ADL Inpatient [facility] G-Code Modifier: CL Plan Pt would benefit from skilled acute OT services to address Balance Training, Functional Mobility Training, Endurance Training, Wheelchair Mobility Training, Pain Management, Safety Education and Training, Patient/Caregiver Training, Equipment Evaluation/Education, Self-Care/ADL Training, and Home Management Training. Frequency: 3x/week during current hospital admission or until additional recommendations are made Barriers: Lower extremity weakness and Long standing deficits Prognosis: good Safety/Education Safety Safety Devices in place: call light within reach, left in bed, nurse notified, and no alarms engaged upon entry Restraints: No Education Education Given To: patient Education Provided: OT Role, Plan of Care, Discharge Recommendations, and Benefits of Increasing Activity Education Method: Verbal Barriers to Learning: None Education Outcome: Verbalized Understanding Goals Patient Stated Goal: Return to SNF Encounter Problems Encounter Problems (Active) Balance Patient will maintain static sitting balance for 3+ minutes with max assist in order to demonstrate improved postural control and prepare for out of bed mobility. Start: 11/01/23 Transfers Pat (more content not included)...[facility]06-18-2024 Note Hospitalist Progress Note 11/01/2023 Subjective: Admit Date: 10/27/2023 PCP: ROCIO BARTLETT Room#: W5-528/W5-528 A Brief Hospital course: Melissa is a 58 y.o. male with past medical history below who presented to ED with healthcare acquired pneumonia. Hx significant for DMII, paraplegia, BATOOL, Hx of blood clots and resides at [facility]. (+) Chronic Bartlett, was recently found to have ESBL E coli UTI. Admitted 10/24 at [facility] when he presented to ED for hypoxia and found to have pneumonia. Started on empiric Vancomycin/Merrem. Pt transferred to [facility] from [facility] for CT Surgical specialty assessment for drainage of effusions. AdmitTED for further evaluation and management. - Transfer for Cardiothoracic surgical specialty assessment and drainage of loculations - Vanc/Merrem - reported allergy/intolerance to PCNs - Per documentation Ucx (+) for ESBL E coli, Klebiella and Proteus. Respiratory workup noted Covid/Influenza/RSV negative. Strep, Legionella negative. CT surgery seen the patient, recommends no acute surgical intervention at this time. Pulmonary consulted ID consulted Interval History: 11/01/2023-patient alert, chart reviewed, overall feeling better, PICC line in place. Discussed with nursing staff. Patient wants his gluteal drain removed. Adult diet Regular; Isolation Tray (Disposables); 4 carb choices (60 gm/meal) 24HR INTAKE/OUTPUT: Intake/Output Summary (Last 24 hours) at 11/01/2023 1358 Last data filed at 11/01/2023 1101 Gross per 24 hour Intake 220 ml Output 2900 ml Net -2680 ml LABS: CBC: Recent Labs 10/30/23 0337 10/31/23 0211 11/01/23 0015 WBC 8.8 9.3 11.3* RBC 3.75* 3.80* 3.63* HGB 7.7* 7.7* 7.3* HCT 28.7* 28.4* 26.9* MCV 76.5* 74.7* 74.1* RDW 19.9* 19.9* 19.9* PLT 458* 486* 467* BMP: Recent Labs 10/30/23 0337 10/31/23 0211 11/01/23 0015 NA 135 136 136 K 3.8 3.9 4.0 CL 100 102 101 CO2 30 29 31* BUN 10 12 11 CREATININE 0.46* 0.60* 0.53* GLUCOSE 153* 207* 167* CALCIUM 8.2* 8.3* 8.1* ANIONGAP 5 5 3 LIVER PROFILE: Recent Labs 10/30/2333610/31/231 11/01/23 0015 AST 23 19 23 ALT 14 14 13 BILITOT 0.4 0.3 0.5 ALKPHOS 82 87 84 PROT 6.5 6.5 6.4 PT/INR: No results for input(s): PROTIME, INR in the last 72 hours. CARDIAC ENZYMES: No results for input(s): TROPONINI in the last 72 hours. Procalcitonin: No results found for: PROCAL COVID-19 PCR: No results for input(s): COVID19 in the last 72 hours. Objective: Vitals: BP 114/63 (BP Location: Left arm, Patient Position: Sitting) Pulse 80 Temp (!) 35.9 ?C (96.7 ?F) (Temporal) Resp 20 Ht 5' 7 (1.702 m) Wt (!) 310 lb 6.4 oz (141 kg) SpO2 96% BMI 48.62 kg/m? Pulse Ox: SpO2 Av.3 % Min: 92 % Max: 99 % Supplemental O2: O2 Flow Rate (L/min): 4 L/min Physical Exam Cardiovascular: Rate and Rhythm: Normal rate and regular rhythm. Pulmonary: Effort: Pulmonary effort is normal. Breath sounds: Normal breath sounds. Abdominal: Palpations: Abdomen is soft. Neurological: Mental Status: He is alert and oriented to person, place, and time. Mental status is at baseline. Medications: Scheduled PRN amLODIPine, 10 mg, Oral, Daily apixaban, 5 mg, Oral, BID carvedilol, 12.5 mg, Oral, BID WC cetirizine, 10 mg, Oral, Daily ertapenem, 1,000 mg, IntraVENous, q24h gabapentin, 100 mg, Oral, BID guaiFENesin, 1,200 mg, Oral, BID heparin flush, 250 Units, IntraCATHeter, q12h insulin glargine, 24 Units, SubCUTAneous, q AM insulin lispro, 0-6 Units, SubCUTAneous, TID WC And insulin lispro, 0-6 Units, SubCUTAneous, Nightly melatonin, 6 mg, Oral, Nightly morphine CR, 30 mg, Oral, 2 times per day pantoprazole, 40 mg, Oral, qAM AC senna-docusate sodium, 2 tablet, Oral, Nightly sodium chloride 0.9%, 10 mL, IntraCATHeter, q12h sodium chloride 0.9%, 5-40 mL, IntraVENous, q12h sodium chloride, 4 mL, Nebulization, BID PRN medications: acetaminophen OR acetaminophen, albuterol, carboxymethylcellulose PF, dextrose, dextrose, diphenhydrAMINE, glucagon (rDNA), glucose, heparin flush, methocarbamol, naloxone, ondansetron ODT OR ondansetron, oxyCODONE, polyethylene glycol (PEG) 3350, sodium chloride, sodium chloride 0.9%, sodium chloride 0.9% Continuous Assessment Acute, acute on chronic, unstable/uncontrolled chronic problems/diagnoses: Healthcare Acquired Pneumonia Complicated Urinary Tract Infection Acute on chronic anemia Stable chronic problems affecting care, new non-acute diagnoses: Diabetes Mellitus BATOOL on BiPAP Chronic Pain 4. Paraplegia Plan As a result of the above findings & factors, the following mgmt was pursued: -No intervention per CT surgery and no need for bronchoscopy at this time per pulmonary -Follow-up with ID, continue current antibiotics, PICC line in place -H&H trending down, monitor and transfuse if less than 7 -Continue Eliquis, monitor H&H - Supplemental (more content not included)...[facility]06-18-2024 Note* Care Coordination - Taina Prieto RN - 11/01/2023 11:40 AM EDT Images from the original note were not included. Care Management Progress Note Patient remains on 5W in isolation for brandon auris, on 4L O2. Cont IV Abx, PICC Line placed 10/30,awaiting OPAT form completion to send to SNF. PT recommending SNF, OT evaluation pending. Dischargeplan return to [facility]. Will need a new insurance authorization. Facility updated and I requested insurance authorization be started once OT evaluation obtained. Discharge Milestones and Delays Expected date/time: 11/01/[address] discharge order Complete med reconciliation Case mgmt discharge readiness Clinical Stability Diagnsotic Workup Test Results Patient Education Complete Expected Discharge History Expected Date/Time Set By Reviewed At 11/01/2023 MAHNAZ De La Cruz 11/01/2023 9:34 AM Waiting on IV Abx determination by ID. 11/02/2023 Taina Prieto RN 11/01/2023 9:23 AM 11/01/2023 Taina Prieto RN 10/31/2023 9:01 AM 10/30/2023 Ellyn De León MD 10/27/2023 10:04 PM Length of Stay (Days): 5 GMLOS: 4.1 [facility] [id number] Note* Care Coordination - Taina Prieto RN - 11/01/2023 11:40 AM EDT Images from the original note were not included. Care Management Progress Note Patient remains on 5W in isolation for brandon auris, on 4L O2. Cont IV Abx, PICC Line placed 10/30,awaiting OPAT form completion to send to SNF. PT recommending SNF, OT evaluation pending. Dischargeplan return to [facility]. Will need a new insurance authorization. Facility updated and I requested insurance authorization be started once OT evaluation obtained. Discharge Milestones and Delays Expected date/time: 11/01/[address] discharge order Complete med reconciliation Case mgmt discharge readiness Clinical Stability Diagnsotic Workup Test Results Patient Education Complete Expected Discharge History Expected Date/Time Set By Reviewed At 11/01/2023 MAHNAZ De La Cruz 11/01/2023 9:34 AM Waiting on IV Abx determination by ID. 11/02/2023 Taina Prieto RN 11/01/2023 9:23 AM 11/01/2023 Taina Prieto RN 10/31/2023 9:01 AM 10/30/2023 Ellyn De León MD 10/27/2023 10:04 PM Length of Stay (Days): 5 GMLOS: 4.1 [id number] NoteCare Management Progress Note Patient remains on 5W in isolation for brandon auris, on 4L O2. Cont IV Abx, PICC Line placed 10/30, awaiting OPAT form completion to send to SNF. PT recommending SNF, OT evaluation pending. Discharge plan return to [facility]. Will need a new insurance authorization. Facility updated and I requested insurance authorization be started once OT evaluation obtained. Discharge Milestones and Delays Expected date/time: 11/01/[address] discharge order Complete med reconciliation Case mgmt discharge readiness Clinical Stability Diagnsotic Workup Test Results Patient Education Complete Expected Discharge History Expected Date/Time Set By Reviewed At 11/01/2023 MAHNAZ De La Cruz 11/01/2023 9:34 AM Waiting on IV Abx determination by ID. 11/02/2023 Taina Prieto RN 11/01/2023 9:23 AM 11/01/2023 Taina Prieto RN 10/31/2023 9:01 AM 10/30/2023 Ellyn De León MD 10/27/2023 10:04 PM Length of Stay (Days): [facility]* Sabine Kumar RN - 11/01/2023 10:02 AM EDT Chronic bartlett in place. RN order to remove via protocol. Provider notified. Bartlett to remain in place due to chronic reasons. [facility]06-18-2024 Note1. Mild progression of right lower lobe infiltrate and effusion. 2. Prominence of the central pulmonary vasculature consistent with moderate congestive heart failure/fluid overload. Report Dictated on Electronically Signed By: Raphael Gonzales MD Electronically Signed Date/Time: 11/01/2023 8:26 AM [facility] [id number] NotePICC Insertion/Replacement Date/Time: 10/31/2023 4:21 PM Performed by: SABINE Jones CNP Authorized by: SABINE Jones CNP Consent: The indications, risks, benefits, alternatives to the procedure were explained to the patient/surrogate decision maker and their questions answered. Consent was obtained to proceed with the procedure. Timeout: Completed immediately prior to the start of the procedure which included verification of the correct patient, correct site and agreement on the procedure to be done. Indications: Indications: Long-term antibiotics and other (see comment) Indications comment: ESBL GNR UTI Anesthetic: Local anesthetic used: lidocaine without epinephrine Procedure details: Preparation: Skin prepped with chlorhexidine Skin prep agent dried: Skin prep agent completely dried prior to procedure Sterile barriers: All five maximal sterile barriers used - gloves, gown, cap, mask and large sterile sheet Hand hygiene: Hand hygiene performed prior to central venous catheter insertion Sterile technique: Sterile technique maintained throughout procedure. Site prior to insertion: Benign Procedure type: Insertion Orientation: right Location: Basilic Catheter type: Double lumen Catheter size: 5 Fr Lot #: [id number] Trimmed at (cm): 49 Inserted at (cm): 49 Ultrasound guidance: Yes Post-procedure: Post-procedure: Antimicrobial dressing applied and securement device Description/Findings: Flushes easily and blood returned Estimated blood loss: < 5 mL Specify complication(s): No apparent complications Follow-up chest x-ray: [facility]06-17-2024 Procedure note* SABINE Jones CNP - 10/31/2023 4:21 PM EDTAssociated Order(s): PICC Insertion/Replacement Post-Procedure Diagnose(s): MCFP (current) use of antibiotics; UTI due to extended-spectrum beta lactamase (ESBL) producing Escherichia coli PICC Insertion/Replacement Date/Time: 10/31/2023 4:21 PM Performed by: SABINE Jones CNP Authorized by: SABINE Jones CNP Consent: The indications, risks, benefits, alternatives to the procedure were explained to the patient/surrogate decision maker and their questions answered. Consent was obtained to proceed with the procedure. Timeout: Completed immediately prior to the start of the procedure which included verification of the correct patient, correct site and agreement on the procedure to be done. Indications: Indications: Long-term antibiotics and other (see comment) Indications comment: ESBL GNR UTI Anesthetic: Local anesthetic used: lidocaine without epinephrine Procedure details: Preparation: Skin prepped with chlorhexidine Skin prep agent dried: Skin prep agent completely dried prior to procedure Sterile barriers: All five maximal sterile barriers used - gloves, gown, cap, mask and large sterile sheet Hand hygiene: Hand hygiene performed prior to central venous catheter insertion Sterile technique: Sterile technique maintained throughout procedure. Site prior to insertion: Benign Procedure type: Insertion Orientation: right Location: Basilic Catheter type: Double lumen Catheter size: 5 Fr Lot #: [id number] Trimmed at (cm): 49 Inserted at (cm): 49 Ultrasound guidance: Yes Post-procedure: Post-procedure: Antimicrobial dressing applied and securement device Description/Findings: Flushes easily and blood returned Estimated blood loss: < 5 mL Specify complication(s): No apparent complications Follow-up chest x-ray: Ordered [facility]06-17-2024 Procedure note* SABINE Jones CNP - 10/31/2023 4:21 PM EDTAssociated Order(s): PICC Insertion/Replacement Post-Procedure Diagnose(s): MCFP (current) use of antibiotics; UTI due to extended-spectrum beta lactamase (ESBL) producing Escherichia coli PICC Insertion/Replacement Date/Time: 10/31/2023 4:21 PM Performed by: SABINE Jones CNP Authorized by: SABINE Jones CNP Consent: The indications, risks, benefits, alternatives to the procedure were explained to the patient/surrogate decision maker and their questions answered. Consent was obtained to proceed with the procedure. Timeout: Completed immediately prior to the start of the procedure which included verification of the correct patient, correct site and agreement on the procedure to be done. Indications: Indications: Long-term antibiotics and other (see comment) Indications comment: ESBL GNR UTI Anesthetic: Local anesthetic used: lidocaine without epinephrine Procedure details: Preparation: Skin prepped with chlorhexidine Skin prep agent dried: Skin prep agent completely dried prior to procedure Sterile barriers: All five maximal sterile barriers used - gloves, gown, cap, mask and large sterile sheet Hand hygiene: Hand hygiene performed prior to central venous catheter insertion Sterile technique: Sterile technique maintained throughout procedure. Site prior to insertion: Benign Procedure type: Insertion Orientation: right Location: Basilic Catheter type: Double lumen Catheter size: 5 Fr Lot #: [id number] Trimmed at (cm): 49 Inserted at (cm): 49 Ultrasound guidance: Yes Post-procedure: Post-procedure: Antimicrobial dressing applied and securement device Description/Findings: Flushes easily and blood returned Estimated blood loss: < 5 mL Specify complication(s): No apparent complications Follow-up chest x-ray: Ordered documented in this [facility]06-17-2024 NotePHYSICAL THERAPY [facility] Initial Evaluation Name/MRN: Melissa Elias ([id number]) Evaluation Date: 10/31/2023 Date of : 1965 Admission Date: 10/27/2023 5:00 PM Age: 58 y.o. [facility] Discharge Recommendation: Usp Facility Equipment Needed: No Other: TBD Assessment IMPRESSION: PT eval complete. Pt is a 58 y.o. male with healthcare aquired pneumonia. Pt also has paralysis from the waist down from a previous hospitalization. Pt is a max x 2 for rolling and says he has not sat EOB in months. Pt has deficits in strength, endurance, and tolerance to exercise. Pt would benefit from skilled therapy to address these deficits and improve functional mobility. PT recommends discharge to a SNF. Diagnosis: Healthcare acquired Pneumonia Prognosis: fair Performance Deficits /Impairments: Increased Pain, Decreased ROM, Decreased Strength, Decreased Endurance, and Decreased Sensation Decision Making: High Complexity Subjective Pt was in bed and agreeable to PT. Pt says at his SF they have been doing ROM exercises with him. Pain: Mendoza-Gaffney Pain Ratin = Hurts little more Pain Location: Lungs Past Medical History: History reviewed. No pertinent past medical history. Past Surgical History: History reviewed. No pertinent surgical history. Admission Diagnosis: Patient Active Problem List Diagnosis Date Noted Pneumonia, bacterial 10/27/2023 Decubitus ulcer of left ischium, stage 3 ([facility]) 08/01/2023 Sacral wound 08/01/2023 Skin ulcer of multiple sites of lower extremity, limited to breakdown of skin ([facility]) 08/01/2023 Pressure injury of buttock, unstageable ([facility]) 02/25/2023 Morbid obesity ([facility]) 02/08/2023 Pressure injury of skin of sacral region 02/08/2023 Type 2 diabetes mellitus with hyperglycemia ([facility]) 02/08/2023 Pressure injury of left heel, unstageable ([facility]) 02/07/2023 Bilateral pulmonary embolism ([facility]) 02/06/2023 Iron deficiency anemia 02/06/2023 Pressure injury of right buttock, stage 4 ([facility]) 02/06/2023 Heart failure, unspecified ([facility]) 12/14/2022 Retention of urine, unspecified 12/14/2022 Wedge compression fracture of t9-t10 vertebra, sequela 12/14/2022 Paraplegia ([facility]) 12/06/2022 Aspiration pneumonitis (CMS/HCC) ([facility]) 12/05/2022 Venous stasis ulcer of lower extremity ([facility]) 12/02/2022 BATOOL (obstructive sleep apnea) 11/29/2022 Spinal stenosis 11/18/2022 Traumatic edema of thoracic spinal cord ([facility]) 11/18/2022 Controlled type 2 diabetes mellitus without complication ([facility]) 11/17/2022 Osteomyelitis of lumbar spine ([facility]) 02/16/2017 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 Fall Risk: Sarabia Fall Risk Score: 45 (High Risk) Precautions/Restrictions: Lines/Drains/Airways: 4 Liters O2 via NC, tele, IV, FC Family/Caregiver Present: none Overall Cognitive Status: WNL Overall Orientation Status: Oriented x4 Vision: not assessed this session Hearing: normal Social/Functional History Patient admitted from SNF. Assistive Equipment: none Prior Level of Function ADL Assistance: Needs Assist Ambulation Assistance: Needs Assistance Transfer Assistance: Needs Assist Objective Lower Extremity Assessment AROM: Exceptions: Paralysis from waist down PROM: WFL Strength: Exceptions: 0/5 BLE Bed Mobility: Rolling to right: Max Assist, x2 Person Assist Rolling to left: Max Assist, x2 Person Assist, Pt did reach for bed and try to pull self over. Transfers Did not perform Ambulation Did not assess this session. Outcome Measures AM-PAC How much HELP from another person do you currently need Turning from your back to your side while in a flat bed without using bedrails?: A Lot Moving from lying on your back to sitting on the side of a flat bed without using bedrails?: A Lot Moving to and from a bed to a chair (including a wheelchair)?: Total Standing up from a chair using your arms (wheelchair or bedside chair)?: Total Walking in a hospital room?: Total Stair climbing assessed?: No AM-PAC Inpatient Mobility Raw Score (No Stairs) : 7 JH-HLM -HL Score: Bed activity Plan Pt would benefit from skilled acute PT services to address Strengthening, ROM, Balance Training, Functional Mobility Training, and Endurance Training. Frequency: 1x/week for 2 weeks Barriers: Pain, Limited family support, Decreased sensation, and Lower extremity weakness Safety/Education Safety Safety Devices in place: call light within reach and left in bed Restraints: No Education Education Given To: patient Education Provided: PT Role, PT Goals, Gait Training, and Plan of Care Education Method: Verbal Barriers to Learning: None Education Outcome: Verbalized Understanding Goals Patient Stated Goal: To feel better. Encounter Problems Encounter Problems (Active) Balance Patient will maintain st (more content not included)...[facility] 10-31-2023 [facility] - Infectious Diseases Attending Progress Note Subjective: No acute events- patient feels better, less cough and CP. No hemoptysis. Afebrile. Objective: Vitals: Patient Vitals for the past 24 hrs: BP Temp Temp src Pulse Resp SpO2 Weight 10/31/23 1215 -- -- -- -- -- 95 % -- 10/31/23 1134 116/67 36.7 ?C (98 ?F) Temporal 96 14 96 % -- 10/31/23 0750 160/88 36.1 ?C (97 ?F) Temporal 90 14 91 % -- 10/31/23 0425 134/74 (!) 35.9 ?C (96.7 ?F) Temporal 89 16 93 % (!) 146 kg (322 lb 1.5 oz) 10/31/23 0022 137/70 36.4 ?C (97.5 ?F) Temporal 91 16 92 % -- 10/30/23 1949 123/65 36.6 ?C (97.8 ?F) Temporal 90 16 93 % -- 10/30/23 1555 157/73 36.3 ?C (97.4 ?F) Temporal 94 17 95 % -- Physical Exam Vitals reviewed. Constitutional: General: He is not in acute distress. Appearance: He is obese. He is ill-appearing (chronically ill, but unlabored). Eyes: Extraocular Movements: Extraocular movements intact. Cardiovascular: Rate and Rhythm: Normal rate and regular rhythm. Pulses: Normal pulses. Heart sounds: Normal heart sounds. No murmur heard. Pulmonary: Effort: Pulmonary effort is normal. No respiratory distress. Breath sounds: Normal breath sounds. No wheezing or rales (dec to R base). Abdominal: General: There is no distension. Palpations: Abdomen is soft. Tenderness: There is no abdominal tenderness (ostomy). Musculoskeletal: General: No swelling. Skin: Coloration: Skin is pale. Skin is not jaundiced. Findings: No erythema or rash. Neurological: Mental Status: He is alert. Motor: Weakness present. Psychiatric: Mood and Affect: Mood normal. Thought Content: Thought content normal. Labs: Lab Results Component Value Date/Time NA 136 10/31/2023 021 K 3.9 10/31/2023 021 CL 102 10/31/2023 021 CO2 29 10/31/2023 021 BUN 12 10/31/2023 021 CREATININE 0.60 (L) 10/31/2023210 GLUCOSE 207 (H) 10/31/2023210 CALCIUM 8.3 (L) 10/31/2023210 PROT 6.5 10/31/2023210 BILITOT 0.3 10/31/2023210 ALKPHOS 87 10/31/2023210 AST 19 10/31/2023210 ALT 14 10/31/2023210 PROCAL 0.31 (H) 10/28/2023 0436 Lab Results Component Value Date/Time WBC 9.3 10/31/2023210 HGB 7.7 (L) 10/31/2023210 HCT 28.4 (L) 10/31/2023210 PLT 486 (H) 10/31/2023210 Micro: Reviewed SA PCR: neg No resp culture obtained Lines: PIV Radiography/Echo/Other: Reviewed CXR 10/30: Impression: Stable appearance of the chest with continued bilateral effusions with atelectasis and consolidation of the right base. Antimicrobials, Start/End Dates: Vancomycin dc'd Meropenem Impression: 58 M admitted with RLL PNA, with effusion?loculated on imaging, unable to perform thoracentesis at OSH, here for CTS evaluation. Clinically he is imprving on empiric tx. H/o recent CAUTI with ESBL- GNRs- from traumatic bartlett and clots, with bladder outlet obstruction symptoms- good UOP now Sacral decub ulcer- wound care for now H/o C auris + Urine culture, colonized, maintain on contact precautions. Chronic anemia Paraplegia secondary to fall DMT2 M obesity Overall HD stable, andimproving Plan: PICC ordered, anticipate will cover at least 2 weeks, possibly longer. Reimaging wll be needed several weeks after.[facility]06-17-2024 [facility] - Infectious Diseases Attending Progress Note LATE ENTRY- seen on 10/31/23 at 4pm Subjective: Feels better, especially after nebulized therapy- cough more loose now. Less CP. Afebrile. Objective: Vitals: Patient Vitals for the past 24 hrs: BP Temp Temp src Pulse Resp SpO2 Weight 10/31/23 1215 -- -- -- -- -- 95 % -- 10/31/23 1134 116/67 36.7 ?C (98 ?F) Temporal 96 14 96 % -- 10/31/23 0750 160/88 36.1 ?C (97 ?F) Temporal 90 14 91 % -- 10/31/23 0425 134/74 (!) 35.9 ?C (96.7 ?F) 89 16 93 % (!) 146 kg (322 lb 1.5 oz) 10/31/23 0022 137/70 36.4 ?C (97.5 ?F) 91 16 92 % -- 10/30/23 1949 123/65 36.6 ?C (97.8 ?F) 90 16 93 % -- 10/30/23 1555 157/73 36.3 ?C (97.4 ?F) Temporal 94 17 95 % -- Physical Exam Vitals reviewed. Constitutional: Appearance: Normal appearance. He is obese. He is ill-appearing (chronically). Cardiovascular: Heart sounds: Normal heart sounds. No murmur heard. Pulmonary: Effort: Pulmonary effort is normal. No respiratory distress. Breath sounds: Normal breath sounds. No wheezing or rales (dec at R base). Abdominal: General: There is no distension. Palpations: Abdomen is soft. Tenderness: There is no abdominal tenderness (ostomy). Skin: Findings: No erythema or rash. Neurological: Mental Status: He is alert. Motor: Weakness present. Psychiatric: Mood and Affect: Mood normal. Thought Content: Thought content normal. Labs: Lab Results Component Value Date/Time NA 136 10/31/2023 021 K 3.9 10/31/2023210 CL 102 10/31/2023 021 CO2 29 10/31/2023210 BUN 12 10/31/2023210 CREATININE 0.60 (L) 10/31/2023210 GLUCOSE 207 (H) 10/31/2023210 CALCIUM 8.3 (L) 10/31/2023 021 PROT 6.5 10/31/2023210 BILITOT 0.3 10/31/2023210 ALKPHOS 87 10/31/2023210 AST 19 10/31/2023 021 ALT 14 10/31/2023210 PROCAL 0.31 (H) 10/28/2023 0436 Lab Results Component Value Date/Time WBC 9.3 10/31/2023210 HGB 7.7 (L) 10/31/2023 0211 HCT 28.4 (L) 10/31/2023 0211 PLT 486 (H) 10/31/2023 0211 Micro: Reviewed SA PCR : neg No resp culture obtained Unable to tap pleural effusion form OSH Lines: PIV Radiography/Echo/Other: reviewed Antimicrobials, Start/End Dates: Vancomycin dc'd Meropenem Impression: 58 M admitted with RLL PNA, with effusion?loculated on imaging, unable to perform tohoracentesis at OSH, here for CTS evaluation. Clinically he is imprving on empiric tx. H/o recent CAUTI with ESBL- GNRs- from traumatic bartlett and clots, with bladder outlet obstruction symptoms- good UOP now Sacral decub ulcer- wound care for now H/o C auris + Urine culture, colonized, maintain on contact precautions. Chronic anemia Paraplegia secondary to fall DMT2 M obesity Overall HD stable, nontoxic. Plan: OK to switch to Ertapenem and treat at least 1-2 more weeks. If worsens, consider VATS/CT per CTS.[facility]06-17-2024 Note* Care Coordination - Taina Prieto RN - 10/31/2023 1:08 PM EDT Received return call from Mother Marci and updated her on status and return to [facility]. [facility] [id number] Note* Care Coordination - Taina Prieto RN - 10/31/2023 1:08 PM EDT Received return call from Mother Marci and updated her on status and return to [facility]. [facility] [id number] NoteHospitalist Progress Note 10/31/2023 Subjective: Admit Date: 10/27/2023 PCP: ROCIO BARTLETT Room#: W5-528/W5-528 A Brief Hospital course: Melissa is a 58 y.o. male with past medical history below who presented to ED with healthcare acquired pneumonia. Hx significant for DMII, paraplegia, BATOOL, Hx of blood clots and resides at [facility]. (+) Chronic Bartlett, was recently found to have ESBL E coli UTI. Admitted 10/24 at [place] when he presented to ED for hypoxia and found to have pneumonia. Started on empiric Vancomycin/Merrem. Pt transferred to [facility] from [place] for CT Surgical specialty assessment for drainage of effusions. AdmitTED for further evaluation and management. - Transfer for Cardiothoracic surgical specialty assessment and drainage of loculations - Vanc/Merrem - reported allergy/intolerance to PCNs - Per documentation Ucx (+) for ESBL E coli, Klebiella and Proteus. Respiratory workup noted Covid/Influenza/RSV negative. Strep, Legionella negative. CT surgery seen the patient, recommends no acute surgical intervention at this time. Pulmonary consulted ID consulted Interval History: 10/31/2023-patient alert, chart reviewed, denies any cough, shortness of breath. No sputum production noted. Remains on empiric antibiotics. Adult diet Regular; Isolation Tray (Disposables); 4 carb choices (60 gm/meal) 24HR INTAKE/OUTPUT: Intake/Output Summary (Last 24 hours) at 10/31/2023 1304 Last data filed at 10/31/2023 0923 Gross per 24 hour Intake -- Output 3700 ml Net -3700 ml LABS: CBC: Recent Labs 10/29/2341610/30/237 10/31/23 021 WBC 8.1 8.8 9.3 RBC 3.86* 3.75* 3.80* HGB 7.9* 7.7* 7.7* HCT 29.3* 28.7* 28.4* MCV 75.9* 76.5* 74.7* RDW 19.9* 19.9* 19.9* PLT 413 458* 486* BMP: Recent Labs 10/29/2341610/30/23 0337 10/31/23 021 NA 136 135 136 K 3.8 3.8 3.9 CL 101 100 102 CO2 30 30 29 BUN 10 10 12 CREATININE 0.48* 0.46* 0.60* GLUCOSE 147* 153* 207* CALCIUM 8.4 8.2* 8.3* ANIONGAP 6 5 5 LIVER PROFILE: Recent Labs 10/29/23 0417 10/30/23 0337 10/31/23 0211 AST 18 23 19 ALT 15 14 14 BILITOT 0.3 0.4 0.3 ALKPHOS 92 82 87 PROT 6.4 6.5 6.5 PT/INR: No results for input(s): PROTIME, INR in the last 72 hours. CARDIAC ENZYMES: No results for input(s): TROPONINI in the last 72 hours. Procalcitonin: No results found for: PROCAL COVID-19 PCR: No results for input(s): COVID19 in the last 72 hours. Objective: Vitals: BP 116/67 (BP Location: Right arm, Patient Position: Lying) Pulse 96 Temp 36.7 ?C (98 ?F) (Temporal) Resp 14 Ht 5' 7 (1.702 m) Wt (!) 322 lb 1.5 oz (146 kg) SpO2 95% BMI 50.45 kg/m? Pulse Ox: SpO2 Av.6 % Min: 91 % Max: 96 % Supplemental O2: O2 Flow Rate (L/min): 4 L/min Physical Exam Cardiovascular: Rate and Rhythm: Normal rate and regular rhythm. Pulmonary: Effort: Pulmonary effort is normal. Breath sounds: Normal breath sounds. Abdominal: Palpations: Abdomen is soft. Neurological: Mental Status: He is alert and oriented to person, place, and time. Mental status is at baseline. Medications: Scheduled PRN amLODIPine, 10 mg, Oral, Daily apixaban, 5 mg, Oral, BID carvedilol, 12.5 mg, Oral, BID WC cetirizine, 10 mg, Oral, Daily ertapenem, 1,000 mg, IntraVENous, q24h gabapentin, 100 mg, Oral, BID guaiFENesin, 1,200 mg, Oral, BID insulin glargine, 24 Units, SubCUTAneous, q AM insulin lispro, 0-6 Units, SubCUTAneous, TID WC And insulin lispro, 0-6 Units, SubCUTAneous, Nightly melatonin, 6 mg, Oral, Nightly morphine, 30 mg, Oral, BID pantoprazole, 40 mg, Oral, qAM AC senna-docusate sodium, 2 tablet, Oral, Nightly sodium chloride 0.9%, 5-40 mL, IntraVENous, q12h sodium chloride, 4 mL, Nebulization, BID PRN medications: acetaminophen OR acetaminophen, albuterol, carboxymethylcellulose PF, dextrose, dextrose, glucagon (rDNA), glucose, methocarbamol, naloxone, ondansetron ODT OR ondansetron, oxyCODONE, polyethylene glycol (PEG) 3350, sodium chloride, sodium chloride 0.9% Continuous Assessment Acute, acute on chronic, unstable/uncontrolled chronic problems/diagnoses: Healthcare Acquired Pneumonia Complicated Urinary Tract Infection Stable chronic problems affecting care, new non-acute diagnoses: Diabetes Mellitus BATOOL on BiPAP Chronic Pain 4. Paraplegia 5. Anemia Plan As a result of the above findings & factors, the following mgmt was pursued: -No intervention per CT surgery and no need for bronchoscopy at this time per pulmonary -Follow-up with ID, continue empiric antibiotics -Continue Eliquis, monitor H&H - Supplemental O2 as needed to maintain SpO2 >90% -Continue current medications -Wound care following - DVT prophylaxis: SCDs and encourage ambulation Complexity: Acute illness or injury posing a threat to life or body function (HIGH). Risk: Advance Directive: Full Code Anticipated Discharge (more content not included)...[facility]06-17-2024 Note* Care Coordination - MAHNAZ De La Cruz - 10/31/2023 11:29 AM EDT SW following with [facility] for return to [facility]. [id number] Note* Care Coordination - MAHNAZ De La Cruz - 10/31/2023 11:29 AM EDT SW following with [facility] for return to [facility]. [facility] [id number] Note* Care Coordination - Taina Prieto RN - 10/31/2023 11:17 AM EDT Care Managment Initial Assessment Date: 10/31/2023 Patient Name: Melissa Elias : 1965 Patient Information Source of Information: Patient Cognition/Language: WFL - Within Functional Limits Permission given to speak with patient guest services representative/caregiver as indicated: Yes Confirmation of Payer with patient/family: Yes Payer Name: Jorge : Confirmation of Primary Care Physician: Confirmed PCP Name: Dr. Bartlett Seen in last 2 years?: Yes Primary Caregiver: (Facility) If assistance needed, confirmed caregiver ready, willing and able to care for patient at discharge: Confirmed with: Living Arrangements Current Residence: Number of Floors Number of Entry Steps: Bed/Bath Levels: Facility: Nursing Facility Skilled Facility Name: [facility] Plan to Return: Yes Lives with: Alone Support Systems: Parent, horse show manager/social work administrator (Staff) Activities of Daily Living Ambulation: Assistance Bathing/Dressing: Assistance Elimination/Continence/Toileting: Assistance Feeding: Assistance Who Assists with Activities of Daily Living: Instrumental Activities of Daily Living Prescription Coverage: Yes Pharmacy Used: Facility Medication Management: Assistance Type: Dose packaging system Who assists with medication securing and setup?: Staff Transportation/Shopping: Transportation Mode: Needs Assistance with Transportation at Discharge: Meal Preparation: Assistance Provider Meal Prep Assistance Provider Name: Facility Laundry/Cleaning: Assistance Provider Laundry/Cleaning Assistance Provider Name: Facility Finances/Bill Paying: Independent Communication: Independent Types of Care Services/Equipment Utilized Care Services: Dialysis Type: NA Durable Medical Equipment: Wheelchair (standard or power) Patient's Goal/Discharge Plan Patient expects to be discharged to: Return to [facility] Discharge Planning Actions: Continue to follow Patient's Choice Rights and [employer] and Collaborative Relationships Disclosed as Indicated for Post-Acute Care: Interdisciplinary Team Engagement: Social Work Referral for: Additional Information: Confirmed with patient discharge plan return to [facility]. Taina Prieto RN [facility] [id number] Note* Care Coordination - Taina Prieto RN - 10/31/2023 11:17 AM EDT Care Managment Initial Assessment Date: 10/31/2023 Patient Name: Melissa Elias : 1965 Patient Information Source of Information: Patient Cognition/Language: WFL - Within Functional Limits Permission given to speak with patient guest services representative/caregiver as indicated: Yes Confirmation of Payer with patient/family: Yes Payer Name: [employer] : Confirmation of Primary Care Physician: Confirmed PCP Name: Dr. Bartlett Seen in last 2 years?: Yes Primary Caregiver: (Facility) If assistance needed, confirmed caregiver ready, willing and able to care for patient at discharge: Confirmed with: Living Arrangements Current Residence: Number of Floors Number of Entry Steps: Bed/Bath Levels: Facility: Nursing Facility Skilled Facility Name: [facility] Plan to Return: Yes Lives with: Alone Support Systems: Parent, horse show manager/social work administrator (Staff) Activities of Daily Living Ambulation: Assistance Bathing/Dressing: Assistance Elimination/Continence/Toileting: Assistance Feeding: Assistance Who Assists with Activities of Daily Living: Instrumental Activities of Daily Living Prescription Coverage: Yes Pharmacy Used: Facility Medication Management: Assistance Type: Dose packaging system Who assists with medication securing and setup?: Staff Transportation/Shopping: Transportation Mode: Needs Assistance with Transportation at Discharge: Meal Preparation: Assistance Provider Meal Prep Assistance Provider Name: Facility Laundry/Cleaning: Assistance Provider Laundry/Cleaning Assistance Provider Name: Facility Finances/Bill Paying: Independent Communication: Independent Types of Care Services/Equipment Utilized Care Services: Dialysis Type: NA Durable Medical Equipment: Wheelchair (standard or power) Patient's Goal/Discharge Plan Patient expects to be discharged to: Return to [facility] Discharge Planning Actions: Continue to follow Patient's Choice Rights and [employer] and Collaborative Relationships Disclosed as Indicated for Post-Acute Care: Interdisciplinary Team Engagement: Social Work Referral for: Additional Information: Confirmed with patient discharge plan return to [facility]. Taina Prieto RN [facility] [id number] Note* Care Coordination - Taina Prieto RN - 10/31/2023 11:10 AM EDT Images from the original note were not included. Care Management Progress Note Patient remains on 5W n isolation for brandon auris, on 4L O2. Cont IV Abx. Patient contacted via telephone and confirmed his plan is to return to [facility] upon discharge. Attempted to reach Mother, left HIPPA Compliant VM . Discharge Milestones and Delays Expected Date/Time: 11/01/[address] discharge order Complete med reconciliation Case mgmt discharge readiness Clinical Stability Diagnsotic Workup Expected Discharge History Expected Date/Time Set By Reviewed At 11/01/2023 Taina Prieto RN 10/31/2023 9:01 AM 10/30/2023 Ellyn De León MD 10/27/2023 10:04 PM Length of Stay (Days): 4 GMLOS: 4.1 [facility]06-17-2024 Note* Care Coordination - Taina Prieto RN - 10/31/2023 11:10 AM EDT Images from the original note were not included. Care Management Progress Note Patient remains on 5W n isolation for brandon auris, on 4L O2. Cont IV Abx. Patient contacted via telephone and confirmed his plan is to return to [facility] upon discharge. Attempted to reach Mother, left HIPPA Compliant VM . Discharge Milestones and Delays Expected Date/Time: 11/01/[address] discharge order Complete med reconciliation Case mgmt discharge readiness Clinical Stability Diagnsotic Workup Expected Discharge History Expected Date/Time Set By Reviewed At 11/01/2023 Taina Prieto RN 10/31/2023 9:01 AM 10/30/2023 Ellyn De León MD 10/27/2023 10:04 PM Length of Stay (Days): 4 GMLOS: 4.1 [facility] [id number] NoteCare Management Progress Note Patient remains on 5W n isolation for brandon auris, on 4L O2. Cont IV Abx. Patient contacted via telephone and confirmed his plan is to return to [facility] in [place] upon discharge. Attempted to reach Mother, left HIPPA Compliant VM . Discharge Milestones and Delays Expected Date/Time: 11/01/[address] discharge order Complete med reconciliation Case mgmt discharge readiness Clinical Stability Diagnsotic Workup Expected Discharge History Expected Date/Time Set By Reviewed At 11/01/2023 Taina Prieto RN 10/31/2023 9:01 AM 10/30/2023 Ellyn De León MD 10/27/2023 10:04 PM Length of Stay (Days): [facility]* Discharge Instr - TEENA* Taina Prieto RN - 10/31/2023 8:04 AM EDT Continuity of Care Form Patient Name: Melissa Elias : 1965 Admit date: 10/27/2023 Discharge date: Code Status Order: Full Code Advance Directives: N Admitting Physician: Ellyn De León MD PCP: ROCIO BARTLETT Discharging Nurse: Discharging Hospital Unit/Room#: W5-528/W5-528 A Discharging Unit Phone Number: Emergency Contact: Extended Emergency Contact Information Primary Emergency Contact: Marci Elias Mobile Relation: Mother Preferred language: German Grab Jack Man needed? No Secondary Emergency Contact: Aletha Brasher Mobile Relation: Sibling Preferred language: German Past Surgical History: History reviewed. No pertinent surgical history. Immunization History: There is no immunization history on file for this patient. Active Problems: Medical Problems Problem List * (Principal) Pneumonia, bacterial Aspiration pneumonitis (CMS/HCC) (HCC) Bilateral pulmonary embolism (HCC) Overview Signed 10/28/2023 7:00 AM by Wolf Esquivel MD Last Assessment & Plan: 02/01 CT chest with PE at OSH Heparin gtt Vascular medicine consulted 02/07 DVT scan negative Controlled type 2 diabetes mellitus without complication (HCC) Overview Signed 10/28/2023 7:00 AM by Wolf Esquivel MD Last Assessment & Plan: SSI Accuchecks ACHS IM consulted Decubitus ulcer of left ischium, stage 3 (HCC) Heart failure, unspecified (HCC) Iron deficiency anemia Overview Signed 10/28/2023 7:00 AM by Wolf Esquivel MD Last Assessment & Plan: Daily CBC IM consulted Morbid obesity (HCC) BATOOL (obstructive sleep apnea) Osteomyelitis of lumbar spine (HCC) Overview Signed 10/28/2023 7:00 AM by Wolf Esquivel MD Last Assessment & Plan: MRI and CT thoracic and lumbar spine completed 02/06 ID consulted Continue vancomycin and cefepime Paraplegia (HCC) Overview Signed 10/28/2023 7:00 AM by Wolf Esquivel MD Last Assessment & Plan: S/p diverting loop colostomy , examination of gluteal wound and anorectal area under anesthesia, flex sig PLAN: -GIS as tolerated -Pain: MMPC -DVT ppx: heparin gtt -WOCN following, appreciate care -Will need [facility] for new ostomy Pressure injury of left heel, unstageable (HCC) Overview Signed 10/28/2023 7:00 AM by Wolf Esquivel MD Last Assessment & Plan: Wound consulted Pressure injury of buttock, unstageable (HCC) Pressure injury of right buttock, stage 4 (HCC) Overview Signed 10/28/2023 7:00 AM by Wolf Esquivel MD Last Assessment & Plan: Wound consulted PRS consult Pressure injury of skin of sacral region Overview Signed 10/28/2023 7:00 AM by Wolf Esquivel MD Last Assessment & Plan: Plastics consult Silver Sulfadiazine BID Q2H turns Sacral wound Retention of urine, unspecified Spinal stenosis Overview Signed 10/28/2023 7:00 AM by Wolf Esquivel MD Last Assessment & Plan: PJk and paraplegia (11/17/2022), now s/p [id number] at OSH in [place] (01/27) MRI and CT Thoracic and lumbar spine completed. No surgical intervention at this time. 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) Overview Signed 10/28/2023 7:00 AM by Wolf Esquivel MD Last Assessment & Plan: ~ consult placed to Ortho spine and NS ~ surgical plan pending ~ MAP goal >85 ~ PRN Levophed to meet goal Type 2 diabetes mellitus with hyperglycemia (HCC) Overview Signed 10/28/2023 7:00 AM by Wolf Esquivel MD Last Assessment & Plan: Endocrinology consult SSI2 Skin ulcer of multiple sites of lower extremity, limited to breakdown of skin (HCC) Venous stasis ulcer of lower extremity (HCC) Wedge compression fracture of t9-t10 vertebra, sequela Isolation/Infection: Contact, Droplet Brandon auris, Pneumonia rule out Nurse Assessment: Last Vital Signs: BP 160/88 (BP Location: Right arm, Patient Position: Lying) Pulse 90 Temp 36.1 C (97 F) (Temporal) Resp 14 Ht 1.702 m (5' 7) Wt (!) 146 kg (322 lb 1.5 oz) SpO2 91% BMI 50.45 kg/m Last documented pain score (0-10 scale): Last Weight: Wt Readings from Last 1 Encounters: 10/31/23 (!) 146 kg (322 lb 1.5 oz) Mental Status: {TEENA Patient Mental Status:61895} IV Access: {TEENA IV Access:41144} Nursing Mobility/ADLs: Walking {CARRI ADL:::Independent} Transfer {CARRI ADL:::Independent} Bathing {CARRI ADL:::Independent} Dressing {CARRI ADL:::Independent} Toileting {CARRI ADL:::Independent} Feeding {CARRI ADL:::Independent} Computer Applications Instructor {CARRI ADL:::Independent} Med Delivery {yes/no:04069} Wound Care Documentation and Therapy: Wound/Incision 10/27/23 Pressure Injury Sacrum Posterior (Active) Drainage Description Sanguineous 10/31/23 0000 Odor Moderte 10/31/23 Drainage Amount Large 10/29/23 1818 Treatments Packing;Irrigation 10/31/23 Primary Dressing Gauze;Wet-dry 10/31/23 Dressing Status Clean, dry & intact 10/29/231999 State of Healing Non-healing 10/31/23 0000 Number of days: 3 Elimination: Continence: Bowel: {yes/no:70374} Bladder: {yes/no:29126} Urinary Catheter: {TEENA Urinary Catheter:97594} Colostomy/Ileostomy/Ileal Conduit: {YES / NO:68090} Colostomy RUQ-Stomal Appliance: 2 piece, Clean, Dry, Intact Colostomy RUQ-Site Assessment: Clean, Intact, Dry Colostomy RUQ-Peristomal Assessment: Clean, Intact Colostomy RUQ-Treatment: Placement checked Colostomy RUQ-Output (mL): (Entire dressing and bag changed. Small amt of stool in bag) Date of Last BM: Intake/Output Summary (Last 24 hours) at 10/31/2023 0803 Last data filed at 10/31/2023 0239 Gross per 24 hour Intake -- Output 3200 ml Net -3200 ml I/O last 3 completed shifts: In: 280 (1.9 mL/kg) [P.O.:240; I.V.:40 (0.3 mL/kg)] Out: 3700 (25.3 mL/kg) [Urine:3200 (0.6 mL/kg/hr); Stool:500] Weight: 146.1 kg Safety Concerns: {TEENA Safety Concerns:90363} Impairments/Disabilities: {TEENA Impairments/Disabilities:89443} Nutrition Therapy: Current Nutrition Therapy: {TEENA Diet List:67977} Routes of Feeding: {routes of feedin} Liquids: {liquid consistency:00881} Daily Fluid Restriction: {daily fluid restriction:86562} Last Modified Barium Swallow with Video (Video Swallowing Test): {done not done:70916} Treatments at the Time of Hospital Discharge: Respiratory Treatments: Oxygen Therapy: {Therapy; copd oxygen:62666} Ventilator: {TEENA Ventilator:45204} Rehab Therapies: {GEN THERAPY DISCIPLINE SCAL:8900887} Weight Bearing Status/Restrictions: {POD WEIGHT BEARIN} Other Medical Equipment (for information only, NOT a DME order): {Assistive Devices DME:12551} Other Treatments: Patient's personal belongings (please select all that are sent with patient): {TEENA Patient Belongings:86845} RN SIGNATURE: {E-signature:53875} CASE MANAGEMENT/SOCIAL WORK SECTION Inpatient Status Date: 10/27/23 Readmission Risk Assessment Score: @READMISSIONRISKDETAILS@ Discharging to Facility/ Agency Name: [facility]) Address: [address] [place], [place] [id number] Fax: Dialysis Facility (if applicable) Name: Address: Dialysis Schedule: Phone: Fax: Surety Bond Agent/Family Medicine Resident signature: ICIAN SECTION Prognosis: {Rehab Prognosis:94640} Condition at Discharge: {Patient Condition:39706} Rehab Potential (if transferring to Rehab): {Rehab Prognosis:56767} Recommended Labs or Other Treatments After Discharge: Physician Certification: I certify the above information and transfer of Melissa Elias is necessary for the continuing treatment of the diagnosis listed and that he requires {TEENA Level of Care:57591} for {greater less than:90621} 30 days. Update Admission H&P: {TEENA Changes in H&P:67968} PHYSICIAN SIGNATURE: {E-signature:36439} documented in this [facility]06-16-2024 NoteHospitalist Progress Note 10/30/2023 Subjective: Admit Date: 10/27/2023 PCP: ROCIO BARTLETT Room#: W5-998/W5-059 A Brief Hospital course: Melissa is a 58 y.o. male with past medical history below who presented to ED with healthcare acquired pneumonia. Hx significant for DMII, paraplegia, BATOOL, Hx of blood clots and resides at [facility]. (+) Chronic Bartlett, was recently found to have ESBL E coli UTI. Admitted 10/24 at [place] when he presented to ED for hypoxia and found to have pneumonia. Started on empiric Vancomycin/Merrem. Pt transferred to [facility] from [place] for CT Surgical specialty assessment for drainage of effusions. AdmitTED for further evaluation and management. - Transfer for Cardiothoracic surgical specialty assessment and drainage of loculations - Vanc/Merrem - reported allergy/intolerance to PCNs - Per documentation Ucx (+) for ESBL E coli, Klebiella and Proteus. Respiratory workup noted Covid/Influenza/RSV negative. Strep, Legionella negative. CT surgery seen the patient, recommends no acute surgical intervention at this time. Pulmonary consulted ID consulted Interval History: 10/30/2023-patient alert, chart reviewed, denies any headache, dizziness. Adult diet Regular; Isolation Tray (Disposables); 4 carb choices (60 gm/meal) 24HR INTAKE/OUTPUT: Intake/Output Summary (Last 24 hours) at 10/30/2023 1357 Last data filed at 10/30/2023 0400 Gross per 24 hour Intake 330 ml Output 500 ml Net -170 ml LABS: CBC: Recent Labs 10/28/236 10/29/237 10/30/23 033 WBC 7.9 8.1 8.8 RBC 3.72* 3.86* 3.75* HGB 7.8* 7.9* 7.7* HCT 28.4* 29.3* 28.7* MCV 76.3* 75.9* 76.5* RDW 19.4* 19.9* 19.9* PLT 430 413 458* BMP: Recent Labs 10/28/23 0436 10/29/2341610/30/23 033 NA 134* 136 135 K 4.1 3.8 3.8 CL 100 101 100 CO2 29 30 30 BUN 17 10 10 CREATININE 0.56* 0.48* 0.46* GLUCOSE 144* 147* 153* CALCIUM 8.5 8.4 8.2* ANIONGAP 5 6 5 LIVER PROFILE: Recent Labs 10/28/23 0436 10/29/23 0417 10/30/23 0337 AST 32 18 23 ALT 15 15 14 BILITOT 0.3 0.3 0.4 ALKPHOS 97 92 82 PROT 6.7 6.4 6.5 PT/INR: No results for input(s): PROTIME, INR in the last 72 hours. CARDIAC ENZYMES: No results for input(s): TROPONINI in the last 72 hours. Procalcitonin: Lab Results Component Value Date PROCAL 0.31 (H) 10/28/2023 COVID-19 PCR: No results for input(s): COVID19 in the last 72 hours. Objective: Vitals: BP 140/65 (BP Location: Right arm, Patient Position: Sitting) Pulse 92 Temp (!) 35.8 ?C (96.5 ?F) (Temporal) Resp 17 Ht 5' 7 (1.702 m) Wt (!) 312 lb 11.2 oz (142 kg) SpO2 95% BMI 48.98 kg/m? Pulse Ox: SpO2 Av.5 % Min: 93 % Max: 95 % Supplemental O2: O2 Flow Rate (L/min): 2 L/min Physical Exam Cardiovascular: Rate and Rhythm: Normal rate and regular rhythm. Pulmonary: Effort: Pulmonary effort is normal. Breath sounds: Normal breath sounds. Abdominal: Palpations: Abdomen is soft. Neurological: Mental Status: He is alert and oriented to person, place, and time. Mental status is at baseline. Medications: Scheduled PRN amLODIPine, 10 mg, Oral, Daily apixaban, 5 mg, Oral, BID carvedilol, 12.5 mg, Oral, BID WC cetirizine, 10 mg, Oral, Daily ertapenem, 1,000 mg, IntraVENous, q24h gabapentin, 100 mg, Oral, BID guaiFENesin, 1,200 mg, Oral, BID insulin glargine, 24 Units, SubCUTAneous, q AM insulin lispro, 0-6 Units, SubCUTAneous, TID WC And insulin lispro, 0-6 Units, SubCUTAneous, Nightly melatonin, 6 mg, Oral, Nightly morphine, 30 mg, Oral, BID pantoprazole, 40 mg, Oral, qAM AC senna-docusate sodium, 2 tablet, Oral, Nightly sodium chloride 0.9%, 5-40 mL, IntraVENous, q12h PRN medications: acetaminophen OR acetaminophen, albuterol, carboxymethylcellulose PF, dextrose, dextrose, glucagon (rDNA), glucose, methocarbamol, naloxone, ondansetron ODT OR ondansetron, oxyCODONE, polyethylene glycol (PEG) 3350, sodium chloride, sodium chloride 0.9% Continuous Assessment Acute, acute on chronic, unstable/uncontrolled chronic problems/diagnoses: Healthcare Acquired Pneumonia Complicated Urinary Tract Infection Stable chronic problems affecting care, new non-acute diagnoses: Diabetes Mellitus - Continue home diabetic regimen - Check blood glucose qACHS w/ insulin sliding scale coverage BATOOL on BiPAP - Ordered for at bedtime and PRN Chronic Pain - Morphine 30mg PO BID - Oxycodone 5mg PRN 4. Paraplegia Plan As a result of the above findings & factors, the following mgmt was pursued: -No intervention per CT surgery and no need for bronchoscopy at this time per pulmonary -Follow-up with ID, continue current antibiotics -Continue Eliquis, monitor H&H - Supplemental O2 as needed to maintain SpO2 >90% -Continue current medications - DVT prophylaxis: SCDs and encourage ambulation Complexity: Acute illness or injury posing a threat to life or body funct (more content not included)...[facility]06-16-2024 Plan of care note* Care Plan - Sarah Thomas RN - 10/30/2023 1:32 AM EDT Problem: Knowledge Deficit Goal: Patient/family/caregiver demonstrates understanding of disease process, treatment plan, medications, and discharge instructions Outcome: Progressing Problem: Potential for Compromised Skin Integrity Goal: Skin Integrity is Maintained or Improved Outcome: Progressing Goal: Nutritional status is improving Outcome: Progressing Problem: Urinary Incontinence Goal: Perineal skin integrity is maintained or improved Outcome: Progressing Problem: Hemodynamic Status Goal: Patient's vitals signs are stable Outcome: Progressing Problem: Excessive Fluid Volume Goal: Fluid and electrolyte balance are achieved/maintained Outcome: Progressing Problem: Inadequate Gas Exchange Goal: Nutritional status is improving Outcome: Progressing Goal: Patient is adequately oxygenated and ventilation is improved Outcome: Progressing Problem: Activity Intolerance/Impaired Mobility Goal: Mobility/activity is maintained at optimum level for patient Outcome: Progressing Problem: Nutrition Goal: Nutritional status is improving Outcome: Progressing Problem: Problem Interventions Goal: Assess Nutritional Intake Outcome: Progressing The patient is Moderately Stable - Low risk of patient condition declining or worsening The patient's goals for the shift include To breath better The clinical goals for the shift include Pt safety [facility] [id number] NoteHospitalist Progress Note 10/29/2023 Subjective: Admit Date: 10/27/2023 PCP: ROCIO BARTLETT Room#: W5-528/W5-528 A Brief Hospital course: Melissa is a 58 y.o. male with past medical history below who presented to ED with healthcare acquired pneumonia. Hx significant for DMII, paraplegia, BATOOL, Hx of blood clots and resides at [facility]. (+) Chronic Bartlett, was recently found to have ESBL E coli UTI. Admitted 10/24 at [place] when he presented to ED for hypoxia and found to have pneumonia. Started on empiric Vancomycin/Merrem. Pt transferred to [facility] from [place] for CT Surgical specialty assessment for drainage of effusions. AdmitTED for further evaluation and management. - Transfer for Cardiothoracic surgical specialty assessment and drainage of loculations - Vanc/Merrem - reported allergy/intolerance to PCNs - Per documentation Ucx (+) for ESBL E coli, Klebiella and Proteus. Respiratory workup noted Covid/Influenza/RSV negative. Strep, Legionella negative. CT surgery seen the patient, recommends no acute surgical intervention at this time. Pulmonary consulted ID consulted Interval History: 10/29/2023-patient alert, chart reviewed, denies any headache, dizziness. Afebrile. No intervention per CT surgery and pulmonary. Adult diet Regular; Isolation Tray (Disposables); 4 carb choices (60 gm/meal) 24HR INTAKE/OUTPUT: Intake/Output Summary (Last 24 hours) at 10/29/2023 1458 Last data filed at 10/29/2023 1044 Gross per 24 hour Intake 450 ml Output 2800 ml Net -2350 ml LABS: CBC: Recent Labs 10/28/23 0436 10/29/23 0417 WBC 7.9 8.1 RBC 3.72* 3.86* HGB 7.8* 7.9* HCT 28.4* 29.3* MCV 76.3* 75.9* RDW 19.4* 19.9* PLT 430 413 BMP: Recent Labs 10/27/23231010/28/2343510/29/23416 NA 133* 134* 136 K 4.4 4.1 3.8 CL 99 100 101 CO2 29 29 30 BUN 17 17 10 CREATININE 0.61* 0.56* 0.48* GLUCOSE 154* 144* 147* CALCIUM 8.3* 8.5 8.4 ANIONGAP 4 5 6 LIVER PROFILE: Recent Labs 10/27/23231010/28/2343510/29/23416 AST 31 32 18 ALT 15 15 15 BILITOT 0.3 0.3 0.3 ALKPHOS 109 97 92 PROT 6.7 6.7 6.4 PT/INR: No results for input(s): PROTIME, INR in the last 72 hours. CARDIAC ENZYMES: No results for input(s): TROPONINI in the last 72 hours. Procalcitonin: Lab Results Component Value Date PROCAL 0.31 (H) 10/28/2023 COVID-19 PCR: No results for input(s): COVID19 in the last 72 hours. Objective: Vitals: BP 118/65 (BP Location: Right arm, Patient Position: Sitting) Pulse 91 Temp 36.4 ?C (97.6 ?F) (Temporal) Resp 18 Ht 5' 7 (1.702 m) Wt (!) 312 lb 11.2 oz (142 kg) SpO2 93% BMI 48.98 kg/m? Pulse Ox: SpO2 Av.3 % Min: 93 % Max: 94 % Supplemental O2: O2 Flow Rate (L/min): 4 L/min Physical Exam Cardiovascular: Rate and Rhythm: Normal rate and regular rhythm. Pulmonary: Effort: Pulmonary effort is normal. Breath sounds: Normal breath sounds. Abdominal: Palpations: Abdomen is soft. Neurological: General: No focal deficit present. Mental Status: He is alert and oriented to person, place, and time. Medications: Scheduled PRN amLODIPine, 10 mg, Oral, Daily [Held by provider] apixaban, 5 mg, Oral, BID carvedilol, 12.5 mg, Oral, BID WC cetirizine, 10 mg, Oral, Daily ertapenem, 1,000 mg, IntraVENous, q24h gabapentin, 100 mg, Oral, BID guaiFENesin, 1,200 mg, Oral, BID insulin glargine, 24 Units, SubCUTAneous, q AM insulin lispro, 0-6 Units, SubCUTAneous, TID WC And insulin lispro, 0-6 Units, SubCUTAneous, Nightly melatonin, 6 mg, Oral, Nightly morphine, 30 mg, Oral, BID pantoprazole, 40 mg, Oral, qAM AC senna-docusate sodium, 2 tablet, Oral, Nightly sodium chloride 0.9%, 5-40 mL, IntraVENous, q12h PRN medications: acetaminophen OR acetaminophen, albuterol, carboxymethylcellulose PF, dextrose, dextrose, glucagon (rDNA), glucose, methocarbamol, naloxone, ondansetron ODT OR ondansetron, oxyCODONE, polyethylene glycol (PEG) 3350, sodium chloride, sodium chloride 0.9% Continuous Assessment Acute, acute on chronic, unstable/uncontrolled chronic problems/diagnoses: Healthcare Acquired Pneumonia Complicated Urinary Tract Infection Stable chronic problems affecting care, new non-acute diagnoses: Diabetes Mellitus - Continue home diabetic regimen - Check blood glucose qACHS w/ insulin sliding scale coverage BATOOL on BiPAP - Ordered for at bedtime and PRN Chronic Pain - Morphine 30mg PO BID - Oxycodone 5mg PRN Plan As a result of the above findings & factors, the following mgmt was pursued: -No intervention per CT surgery and no need for bronchoscopy at this time per pulmonary -Follow-up with ID, continue current antibiotics -Resume Eliquis - Supplemental O2 as needed to maintain SpO2 >90% -Continue current medications - DVT prophylaxis: SCDs and encourage ambulation Complexity: Acute illness or injury posing a threat to life or body function (more content not included)...[facility]06-15-2024 Plan of care note* Care Plan - Sarah Thomas RN - 10/29/2023 12:52 AM EDT Problem: Knowledge Deficit Goal: Patient/family/caregiver demonstrates understanding of disease process, treatment plan, medications, and discharge instructions Outcome: Progressing Problem: Potential for Compromised Skin Integrity Goal: Skin Integrity is Maintained or Improved Outcome: Progressing Goal: Nutritional status is improving Outcome: Progressing Problem: Urinary Incontinence Goal: Perineal skin integrity is maintained or improved Outcome: Progressing Problem: Hemodynamic Status Goal: Patient's vitals signs are stable Outcome: Progressing Problem: Excessive Fluid Volume Goal: Fluid and electrolyte balance are achieved/maintained Outcome: Progressing Problem: Inadequate Gas Exchange Goal: Nutritional status is improving Outcome: Progressing Goal: Patient is adequately oxygenated and ventilation is improved Outcome: Progressing Problem: Activity Intolerance/Impaired Mobility Goal: Mobility/activity is maintained at optimum level for patient Outcome: Progressing Problem: Nutrition Goal: Nutritional status is improving Outcome: Progressing Problem: Problem Interventions Goal: Assess Nutritional Intake Outcome: Progressing The patient is Moderately Stable - Low risk of patient condition declining or worsening The patient's goals for the shift include To breath better The clinical goals for the shift include Pt safety [id number] Plan of care note* Care Plan - Lynn Camarena RN - 10/28/2023 5:15 PM EDT Problem: Knowledge Deficit Goal: Patient/family/caregiver demonstrates understanding of disease process, treatment plan, medications, and discharge instructions Outcome: Progressing Problem: Hemodynamic Status Goal: Patient's vitals signs are stable Outcome: Progressing The patient is Moderately Unstable - Medium risk of patient condition declining or worsening The patient's goals for the shift include To breath better The clinical goals for the shift include Pt safety Over the shift, the patient did not make progress toward the following goals. Barriers to progression include na. Recommendations to address these barriers include na. [facility] [id number] Note* Care Coordination - Sophia Emanuel - 10/28/2023 3:17 PM EDT Return referral placed [facility] per TCC request. Await review and response regarding ability to accept. TCC notified. [facility] [id number] Note* Care Coordination - Sophia Emanuel - 10/28/2023 3:17 PM EDT Return referral placed to [facility] per TCC request. Await review and response regarding ability to accept. TCC notified. [facility] [id number] NoteReturn referral placed to SN[facility]- [facility] per TCC request. Await review and response regarding ability to accept. TCC notified. [facility]06-14-2024 Note* Care Coordination - Melissa Villanueva RN - 10/28/2023 3:07 PM EDT Pt in isolation for brandon auris. TCC tried to call into pt room three times with no answer, TCC called pt cell phone, left VM , and called mother's phone and left VM in attempts to complete IA. Pt is from [facility]. TCC tasked BATTERY LOADER to make return referral. TCC will attempt to complete IA as time allows.. [facility] [id number] Note* Care Coordination - Melissa Villanueva RN - 10/28/2023 3:07 PM EDT Pt in isolation for brandon auris. TCC tried to call into pt room three times with no answer, TCC called pt cell phone, left VM , and called mother's phone and left VM in attempts to complete IA. Pt is from [facility]. TCC tasked BATTERY LOADER to make return referral. TCC will attempt to complete IA as time allows.. [facility] [id number] Consult note* Jean Moser MD - 10/28/2023 2:07 PM EDT Associated Order(s): IP CONSULT TO INFECTIOUS DISEASES Images from the original note were not included. [facility] - Infectious Diseases Attending Consult Note Reason for Consult: ?PNA with loculated effusion, on Meropenem History of Present Illness: 58 M, ECF resident after fall resulting in L1 injury and paraplegia, and with recent obstructive uropathy issues, clots form traumatic bartlett insertions leading to UTIs, most recent cultyure + ESBL- Ecoli form 10/15/23. Admitted to OSH 10/23 for hypoxic respiratory failure, on HFNC initially, assoiated cough- occasionally productive, and CT did show R infiltrated and loculated effusion. Started on broad spectrum antibiotics thered, and started to get better, down to 4 L NC. They attempted thoracentesis, unsuccessful and was transferred to [facility] for CTS evaluation, possible chest tube placement. He rported congestion from past month, attributed to allergies, denied choking on his food or sick conta cts. Viral PCR negative, Urinary Ags neg, BC negative at OSH. NKDA Past Medical History: History reviewed. No pertinent past medical history. Past Surgical History: History reviewed. No pertinent surgical history. Current Medications: Current Facility-Administered Medications Medication Dose Route Frequency Provider Last Rate Last Admin acetaminophen (Tylenol) tablet 650 mg 650 mg Oral q6h PRN Ellyn De León MD 650 mg at 10/27/23 2318 Or acetaminophen (Tylenol) suppository 650 mg 650 mg Rectal q6h PRN Ellyn De León MD albuterol (2.5 MG/3ML) 0.083% nebulizer solution 2.5 mg 2.5 mg Nebulization q4h PRN Ellyn De León MD amLODIPine (Norvasc) tablet 10 mg 10 mg Oral Daily Ellyn De León MD 10 mg at 10/28/23 1020 [Held by provider] apixaban (Eliquis) tablet 5 mg 5 mg Oral BID Ellyn De León MD carboxymethylcellulose PF (Refresh Plus) 0.5 % ophthalmic solution 1 drop 1 drop Both Eyes BID PRN Ellyn De León MD carvedilol (Coreg) tablet 12.5 mg 12.5 mg Oral BID Ellyn De León MD 12.5 mg at 10/28/23 1019 cetirizine (ZyrTEC) tablet 10 mg 10 mg Oral Daily Ellyn De León MD 10 mg at 10/28/23 1158 dextrose 5 % infusion 100 mL/hr IntraVENous PRN Ellyn De León MD dextrose 50 % solution 12.5 g 12.5 g IntraVENous PRN Ellyn De León MD gabapentin (Neurontin) capsule 100 mg 100 mg Oral BID Ellyn De León MD 100 mg at 10/28/23 1019 glucagon (human recombinant) injection 1 mg 1 mg IntraMUSCular PRN Ellyn De León MD glucose oral gel 15 g 15 g Oral PRN Ellyn De León MD guaiFENesin (Mucinex) 12 hr tablet 1,200 mg 1,200 mg Oral BID Ellyn De León MD 1,200 mg at 10/28/23 1025 insulin glargine (Lantus) injection 24 Units 24 Units SubCUTAneous q AM Ellyn De León MD 24 Units at10/28/23 1021 Insulin Lispro (Humalog) injection 0-6 Units 0-6 Units SubCUTAneous TID Ellyn De León MD 1 Units at 10/28/23 1159 And Insulin Lispro (Humalog) injection 0-6 Units 0-6 Units SubCUTAneous Nightly Ellyn De León MD 1 Unitsat 10/27/23 2318 melatonin tablet 6 mg 6 mg Oral Nightly Ellyn De León MD 6 mg at 10/27/23 2318 meropenem (Merrem) 2,000 mg in sodium chloride 0.9 % 100 mL IVPB 2,000 mg IntraVENous q8h Ellyn De León MD Stopped at 10/28/23 1318 methocarbamol (Robaxin) tablet 1,000 mg 1,000 mg Oral q8h PRN Ellyn De León MD 1,000 mg at 10/28/23 1024 morphine (MSIR) tablet 30 mg 30 mg Oral BID Ellyn De León MD 30 mg at 10/28/23 1019 naloxone (Narcan) injection 0.4 mg 0.4 mg IntraVENous q5 min PRN Helen Aldridge DO ondansetron ODT (Zofran-ODT) disintegrating tablet 4 mg 4 mg Oral q8h PRN Ellyn De León MD Or ondansetron (Zofran) injection 4 mg 4 mg IntraVENous q6h PRN Ellyn De León MD oxyCODONE (Roxicodone) immediate release tablet 10 mg 10 mg Oral q6h PRN Ellyn De León MD 10 mg at 10/28/23 1158 pantoprazole (ProtoNix) EC tablet 40 mg 40 mg Oral qAM AC Ellyn De León MD 40 mg at 10/28/23 0607 polyethylene glycol (PEG) 3350 (Miralax) packet 17 g 17 g Oral Daily PRN Ellyn De León MD senna-docusate sodium (Senokot-S) 8.6-50 MG tablet 2 tablet 2 tablet Oral Nightly Ellyn De León MD sodium chloride 0.9 % infusion 5-250 mL/hr IntraVENous PRN Ellyn De León MD sodium chloride 0.9% (NS) flush 5-40 mL 5-40 mL IntraVENous q12h Ellyn De León MD 10 mL at 10/28/23 1015 sodium chloride 0.9% (NS) flush 5-40 mL 5-40 mL IntraVENous PRN Ellyn De León MD vancomycin (Vancocin) 1750 mg in NS 500 mL IVPB (premix) 1,750 mg IntraVENous q12h Ellyn De León MD 1,750 mg at 10/28/23 1218 Allergies: No Known Allergies Social History: Social History Socioeconomic History Marital status: Single Spouse name: Not on file Number of children: Not on file Years of education: Not on file Highest education level: Not on file Occupational History Not on file Tobacco Use Smoking status: Not on file Smokeless tobacco: Not on file Substance and Sexual Activity Alcohol use: Not on file Drug use: Not on file Sexual activity: Not on file Other Topics Concern Not on file Social History Narrative Not on file Social Determinants of Health Financial Resource Strain: Not on file Food Insecurity: Not on file Transportation Needs: Not on file Physical Activity: Not on file Stress: Not on file Social Connections: Not on file Intimate Partner Violence: Not At Risk (10/28/2023) Humiliation, Afraid, Rape, and Kick questionnaire Fear of Current or Ex-Partner: No Emotionally Abused: No Physically Abused: No Sexually Abused: No Housing Stability: Not on file Family History: No family history on file. Review of Systems: Review of Systems Constitutional: Negative for chills, fatigue and fever. Respiratory: Positive for cough and shortness of breath. Cardiovascular: Negative for chest pain. Gastrointestinal: Negative. Genitourinary: Positive for difficulty urinating (recent CAUTI) and hematuria (resolved with cath changes). Negative for dysuria. Skin: Positive for wound (sacral decub ulcer- healing per patient). Negative for rash. Neurological: Positive for weakness (per HPI). Psychiatric/Behavioral: Negative. Vitals: Patient Vitals for the past 24 hrs: BP Temp Temp src Pulse Resp SpO2 Height Weight 10/28/23 1347 -- -- -- -- -- -- 1.702 m (5' 7) -- 10/28/23 1125 143/74 36.8 C (98.3 F) Temporal 92 16 96 % -- -- 10/28/23 0305 -- 36.9 C (98.4 F) Temporal -- -- -- -- -- 10/28/23 0305 132/76 -- -- 84 16 98 % -- (!) 142 kg (312 lb 11.2 oz) 10/28/23 0038 -- -- -- 88 -- (!) 88 % -- -- 10/27/23 2336 134/67 36.6 C (97.9 F) Temporal 96 18 (!) 88 % -- -- 10/27/23 2048 140/70 36.8 C (98.3 F) Temporal 95 20 90 % 1.702 m (5' 7) (!) 142 kg (312 lb 11.2 oz) Physical Exam: Physical Exam Vitals reviewed. Constitutional: General: He is not in acute distress. Appearance: He is obese. He is not ill-appearing or toxic-appearing. Eyes: General: No scleral icterus. Extraocular Movements: Extraocular movements intact. Cardiovascular: Rate and Rhythm: Normal rate and regular rhythm. Pulses: Normal pulses. Heart sounds: Normal heart sounds. No murmur heard. Pulmonary: Effort: Pulmonary effort is normal. No respiratory distress. Breath sounds: Normal breath sounds. No wheezing, rhonchi or rales (mild dec at R base). Abdominal: General: There is no distension. Palpations: Abdomen is soft. Tenderness: There is no abdominal tenderness. Genitourinary: Comments: Hidden penis, bartlett-clear yellow UOP Musculoskeletal: General: Signs of injury (wound not examined) present. No deformity (atrophy to both legs). Cervical back: Normal range of motion and neck supple. Lymphadenopathy: Cervical: No cervical adenopathy. Skin: Findings: No erythema or rash. Neurological: Mental Status: He is alert and oriented to person, place, and time. Motor: Weakness (to both legs) present. Psychiatric: Mood and Affect: Mood normal. Thought Content: Thought content normal. Labs: Recent Labs 10/27/23 2311 10/28/23 0436 NA 133* 134* K 4.4 4.1 CL 99 100 CO2 29 29 BUN 17 17 CREATININE 0.61* 0.56* GLUCOSE 154* 144* CALCIUM 8.3* 8.5 PROT 6.7 6.7 BILITOT 0.3 0.3 ALKPHOS 109 97 AST 31 32 ALT 15 15 Recent Labs 10/28/23 0436 WBC 7.9 HGB 7.8* HCT 28.4* PLT 430 Micro: No results for input(s): COVID19 in the last 72 hours. OSH records reviewed Lines: PIV Radiography/Echo/Other: reviewed CXR: IMPRESSION: 1. Bilateral infiltrates and effusions, right greater than left. 2. Prominence of the interstitium and central pulmonary vasculature consistent with mild to moderate congestive heart failure/fluid overload. Antimicrobials,Start/End Dates: Vancomycin,Meropenem d#4 Impression: 58 M admitted with RLL PNA, with effusion?loculated on imaging, unable to perform tohoracentesis atOSH, here for CTS evaluation. Clinically he is imprving on empiric tx. H/o recent CAUTI with ESBL- GNRs- from traumatic bartlett and clots, with bladder outlet obstruction symptoms- good UOP now Sacral decub ulcer- wound care for now H/o C auris + Urine culture, colonized, maintain on contact precautions. Chronic anemia Paraplegia secondary to fall DMT2 M obesity Overall HD stable, n ontoxic. Plan: DC vancomycin Switch to IV Ertapenem to cover ESBL GNR UTI, should also be adequate coverage for HAP. Duration atleast 1-2 weeks, given possible loculated effusion. Per CTS, if fluid reaccumulates, then consider thoracentesis. Consider Bronchoscopy if trapped lung presentation. Will follow. Based on diagnoses and management, combination of acute and chronic problems, exacerbations and/or acuity, this visit should be considered to be of moderate complexity. Total time 70 minutes on this day of encounter includes counseling, coordinating plan of care, record and documentation review before and after visit including documentation and time not explicitly included on EMR time stamp for accounting for open encounter. [facility] [id number] Consult note* Wolf Esquivel MD - 10/28/2023 1:32 PM EDTAssociated Order(s): Inpatient consult to Pulmonology PULMONOLOGY CONSULT NOTE 10/28/2023 1:33 PM Reason for consult: Pneumonia with reported mucous plugging Inpatient consult to Pulmonology Consult performed by: Wolf Esquivel MD Consult ordered by: Ellyn De León MD Subjective: Admit Date: 10/27/2023 PCP: ROCIO BARTLETT HPI: Melissa Elias is a 58 year old man with a history of paraplegia after spinal cord injury, sacral decubitus ulcer with history of osteomyelitis, pressure injuries, BATOOL, PE on [facility], DM2, chronicMoore who was transferred to [place] for loculated parapneumonic effusion on the right. Initially admitted to [place] 10/24, and treated with broad spectrum antibiotics Vanc/Merrem, CTA chest suggested pneumonia with a loculated right pleural effusion. Had negative urine strep pneumo/legionella and COVID/Flu/RSV. Thoracentesis was attempted but there was no amenable pocket for drainage. He was transferred to [facility] for CT Surgery evaluation. Labs here with WBC 7.9. He has been afebrile Patient reports he began feeling ill on Tuesday, endorses fever, chills, productive cough. He reports minimal pleuritic pain however. He reports since his fall he has had osteomyelitis s/p spinal surgery, as well as one other bout of pneumonia requiring simple thoracentesis. He says he is not usually on supplemental oxygen. Reports he is a never smoker. Has never had PFTs or seen a Personalized Living Manager. CXR today is notable for bilateral pleural effusions R > L, pulmonary vascular congestion. Assessment and Plan: Right lower lobe pneumonia with loculated pleural effusion Acute hypoxic respiratory failure secondary to above BATOOL Morbid obesity PE on Eliquis History of paraplegia after spinal cord injury; sacral decubitus ulcer with history of osteomyelitis Never smoker Presents with suspected pneumonia from outside hospital with right sided loculated pleural effusionwhich was not amenable to thoracentesis there. Transferred for CT surgery evaluation for considerations for drainage. He is on 4L NC at this time and in no distress. Appreciate CT surgery recommendations. Suspect IR guided chest tube with drainage will be necessary. Unable to see report or imaging from [place] - will attempt to obtain images from there. No indication for Bronchoscopy at this time. Check sputum culture, pneumonia PCR, and MRSA nares screening as well as procalcitonin Agree with autobipiap overnight and with naps Wolf Esquivel MD Fellow, Pulmonary and Critical Care Medicine Past Medical History: History reviewed. No pertinent past medical history. Past Surgical History: History reviewed. No pertinent surgical history. Allergies: No Known Allergies Social History: Social History Substance and Sexual Activity Alcohol Use None Social History Substance and Sexual Activity Drug Use Not on file Social History Tobacco Use Smoking Status Not on file Smokeless Tobacco Not on file Family History: No family history on file. Review of Systems Constitutional: Positive for fever. Negative for unexpected weight change. HENT: Negative for congestion, rhinorrhea and sore throat. Eyes: Negative for visual disturbance. Respiratory: Positive for cough and shortness of breath. Negative for wheezing. Cardiovascular: Negative for chest pain, palpitations and leg swelling. Gastrointestinal: Negative for abdominal pain and nausea. Musculoskeletal: Negative for arthralgias and myalgias. Skin: Negative for rash. Neurological: Negative for dizziness and light-headedness. Psychiatric/Behavioral: Negative for sleep disturbance. Medications: Scheduled Meds:amLODIPine, 10 mg, Oral, Daily [Held by provider] apixaban, 5 mg, Oral, BID carvedilol, 12.5 mg, Oral, BID WC cetirizine, 10 mg, Oral, Daily gabapentin, 100 mg, Oral, BID guaiFENesin, 1,200 mg, Oral, BID insulin glargine, 24 Units, SubCUTAneous, q AM insulin lispro, 0-6 Units, SubCUTAneous, TID WC And insulin lispro, 0-6 Units, SubCUTAneous, Nightly melatonin, 6 mg, Oral, Nightly meropenem, 2,000 mg, IntraVENous, q8h morphine, 30 mg, Oral, BID pantoprazole, 40 mg, Oral, qAM AC senna-docusate sodium, 2 tablet, Oral, Nightly sodium chloride 0.9%, 5-40 mL, IntraVENous, q12h vancomycin, 1,750 mg, IntraVENous, q12h Continuous Infusions: Data: [facility] within last 24 hours- BMP: Recent Labs 10/27/23 2311 10/28/23 0436 NA 133* 134* K 4.4 4.1 CL 99 100 CO2 29 29 BUN 17 17 CREATININE 0.61* 0.56* CALCIUM 8.3* 8.5 MG -- 1.9 LFTs: Recent Labs 10/27/23 2311 10/28/23 0436 AST 31 32 ALT 15 15 PROT 6.7 6.7 ALBUMIN 3.1* 3.0* BILITOT 0.3 0.3 ALKPHOS 109 97 Glucose: Recent Labs 10/27/23 2309 10/27/23 2311 10/28/23 0436 10/28/23 0814 10/28/23 1123 GLUCOSE -- 154* 144* -- -- POCGLU 180* -- -- 162* 176* Procal: No results for input(s): PROCAL in the last 72 hours. CBC: Recent Labs 10/28/236 WBC 7.9 HGB 7.8* HCT 28.4* PLT 430 MCV 76.3* RDW 19.4* ABGs: No results for input(s): PHART, ZXJ5CRD, PO2ART, OQK6VBO, SO2ART, Y2NANXVI in thelast 72 hours. Lactic Acid: No results for input(s): LACTATE in the last 72 hours. INR: No results for input(s): INR in the last 72 hours. Cardiac Injury Profile: No results for input(s): CKTOTAL, CKMB, TROPONINI in the last 72 hours. Labs in Last 3 months: No results found for: TSH, VITD25, PSA, INR, GLUF Microbiology- Urine Cx: No results found for: URINECX Blood Cx: No results found for: BLOODCX Sputum Cx: No results found for: RESPCULT Gram Stain: No results found for: LABGRAM PNA PCR: No results found for: HUMANMETAPNE COVID19: No results found for: COVID19 Legionella Ag: No results found for: LEGIONELLAPN Strep Ag: No results for input(s): STREPPNEUMO in the last 72 hours. Imaging- CXR portable:Results for orders placed during the hospital encounter of 10/27/23 XR chest 1 view Narrative [facility] Name: [facility] 1965 [id number] Exam Date/Time: 10/28/2023 08:02 Procedure: XR CHEST 1 VIEW Ordering Provider: ALDRIDGE OLGA Reason For Exam: pneumonia with effusions CLINICAL INFORMATION: Shortness of breath. Pleural effusions. Portable view of the chest at 0755 hours is provided without comparison. FINDINGS: The heart size is normal. Bilateral infiltrates and effusions are noted, right greater than left. There is prominence of the interstitium and central pulmonary vasculature. Gan rods span the thoracolumbar junction. Impression 1. Bilateral infiltrates and effusions, right greater than left. 2. Prominence of the interstitium and central pulmonary vasculature consistent with mild to moderate congestive heart failure/fluid overload. Report Dictated on Electronically Signed By: Raphael Gonzales MD Electronically Signed Date/Time: 10/28/2023 9:01 AM EDT CXR (2V): No results found for this or any previous visit. CT Chest: No results found for this or any previous visit. CTA Chest: No results found for this or any previous visit. Other Studies: Reviewed and as per electronic record. CxR/CT images personally reviewed by me when available; salient findings summarized in A/P. Objective: Vitals: BP 143/74 (BP Location: Right arm, Patient Position: Lying) Pulse 92 Temp 36.8 C (98.3 F) (Temporal) Resp 16 Ht 5' 7 (1.702 m) Wt (!) 312 lb 11.2 oz (142 kg) SpO2 96% BMI 48.98kg/m Physical Exam Constitutional: General: He is not in acute distress. Appearance: Normal appearance. He is ill-appearing. He is not toxic-appearing. Comments: Lying in bed, chronically ill appearing HENT: Head: Normocephalic and atraumatic. Right Ear: External ear normal. Left Ear: External ear normal. Nose: Nose normal. Mouth/Throat: Mouth: Mucous membranes are moist. Pharynx: Oropharynx is clear. Eyes: Conjunctiva/sclera: Conjunctivae normal. Cardiovascular: Rate and Rhythm: Normal rate and regular rhythm. Pulses: Normal pulses. Heart sounds: Normal heart sounds. No murmur heard. No gallop. Pulmonary: Effort: Pulmonary effort is normal. No respiratory distress. Breath sounds: Normal breath sounds. No wheezing or rales. Abdominal: General: There is no distension. Musculoskeletal: Right lower leg: No edema. Left lower leg: No edema. Skin: Coloration: Skin is not jaundiced or pale. Neurological: General: No focal deficit present. Mental Status: He is alert and oriented to person, place, and time. Psychiatric: Mood and Affect: Mood normal. Behavior: Behavior normal. Associated attestation - Jd Peñaloza MD - 10/28/2023 3:20 PM EDT I have personally performed a [id number] diagnostic evaluation on this patient on date of service10/28/23. History, labs, imaging studies, and electronic medical record have been reviewed by me. This note documented by the [x]manager of warehouse []ALFONSO reflects my history, exam, and medical decision making. I have reviewed and agree with the care plan. Changes were made in the orders as necessary. ROSdocumentation was reviewed and negative unless otherwise stated in HPI. Additional pertinent interval history, ROS, and physical exam findings: Outside imaging unable to review reports of loculated effusion, no endobronchial mass, no adenopathy. Patient attempted a thoracentesis but was unable to be done due to small pocket Patient severely chronically ill. Resides in [facility], sarcral wound etc. CTS note reviewed. CXR reviewed by me shows right pleural effusion. Assessment: Loculated right parapneumonia effusion Acute respiratory failure with hypoxia HAP BATOOL/OHS on BiPAP Severe morbid obesity BMI 50 Plan: Unable to review [facility] images, however no need for bronchoscopy at this time, no mention of mass, lobar atelectasis, mucous plugs or adenopathy. Small effusion nto amendable to thora, consider imaging guided pigtail and lytics if worsens. Patient poor candidate for any invasive procedures. IV abx. May just treat with abx and leav effusion alone. Will attempt to get [facility] records. [facility] [id number] Consult note* Nyasia Jin, [employer]ON - WATER REUSE PROGRAM MANAGER - 10/28/2023 8:47 AM EDT Images from the original note were not included. [facility] Wound/Ostomy CONSULT Note Melissa Elias AGE: 58 y.o. GENDER: male : 1965 Subjective: HISTORY of PRESENT ILLNESS HPI Melissa Elias is a 58 y.o. male who presents for wound care and ostomy management. History Context: Hx significant for DMII, paraplegia, BATOOL, Hx of blood clots and resides at [facility]. (+) Chronic Bartlett, was recently found to have ESBL E coli UTI. Admitted 10/24 at [place] when he presented to ED for hypoxia and found to have pneumonia. Started on empiric Vancomycin/Merrem. Pt transferred to [facility] from [place] [facility] for CT Surgical specialty assessment for drainageof effusions. Wound and ostomy care consulted for pressure injury and colostomy. PAST MEDICAL HISTORY History reviewed. No pertinent past medical history. PAST SURGICAL HISTORY History reviewed. No pertinent surgical history. FAMILY HISTORY No family history on file. SOCIAL HISTORY ALLERGIES No Known Allergies MEDICATIONS No current facility-administered medications on file prior to encounter. No current outpatient medications on file prior to encounter. REVIEW OF SYSTEMS Pertinent items are noted in HPI. Objective: BP 132/76 (BP Location: Right arm, Patient Position: Lying) Pulse 84 Temp 36.9 C (98.4 F) (Temporal) Resp 16 Ht 1.702 m (5' 7) Wt (!) 142 kg (312 lb 11.2 oz) SpO2 98% BMI 48.98 kg/m PHYSICAL EXAM General appearance: in no apparent distress, well developed and well nourished, non-toxic, in no respiratory distress and acyanotic, and alert, obese Skin: warm and dry Pulmonary: Normal effort, no respiratory distress, no cyanosis Abdomen: Colostomy to RLQ. Stoma pink and moist through pouch. Small firm stool in pouch. Pouch intact Sacrum: 20.0cmx30.cmx6.5cm. [place]/red granulation with yellow slough to base of wound. Pen aniya drain noted from left buttock to middle of sacrum ulcer. Moderate serosang drainage. Periwound fragile with excoriation. LABS CBC: Lab Results Component Value Date WBC 7.9 10/28/2023 HGB 7.8 (L) 10/28/2023 HCT 28.4 (L) 10/28/2023 MCV 76.3 (L) 10/28/2023 PLT 430 10/28/2023 BMP: Lab Results Component Value Date NA 133 (L) 10/27/2023 K 4.4 10/27/2023 CL 99 10/27/2023 CO2 29 10/27/2023 BUN 17 10/27/2023 CREATININE 0.61 (L) 10/27/2023 PT/INR: No results found for: PROTIME, INR Prealbumin: No results found for: PREALBUMIN Albumin:No components found for: LABALBU Sed Rate:No results found for: SEDRATE Micro: No components found for: BC Assessment/Plan: Sacrum: Pressure Injury (Stage 4) - Clean with NS, pack with NS moist Kerlix then cover with DCD BID and PRN - Envella bed - Reposition q2hrs - Incontinent check q2hrs Colostomy home going orders: - 2 1/ pouch [place]: [id number] [place]: [id number] - 2 1/4 flange [place]: [id number] [place]: [id number] - Adapt ring [place]: 7805 [place]: [id number] - Skin prep [place]: 7917 Change pouch twice a week and PRN for leaking Empty pouch when 1/3 to 1/2 full and PRN Any questions or concerns please secure chat [facility] wound/ostomy. Thank you for the consult! I personally obtained the fournier and critical portions of the history and physical exam. I reviewed the labs, imaging studies, and electronic medical record. I reviewed the chart documentation and discussed the patient with treatment team members. I have edited the note to reflect my clinical findingsand my assessment and plan. Please note, the time of this note does not reflect the time I saw thispatient today, but the time of this documentaton. Portions of this note including HPI, ROS, impression/plan, and examination may have been copied forward from admission to today as to provide important historical information essential in contributing to medical decision making. Documentation has been reviewed and edited as necessary to support clinical decision making for today's visit and to reflect my own independent evaluation of this patient. Decision making for today's visit and to reflectmy own independent evaluation of this patient. [employer] Phone: [phone] NoteHospitalist Progress Note 10/28/2023 Subjective: Admit Date: 10/27/2023 PCP: ROICO BARTLETT Room#: W5-528/W5-528 A Brief Hospital course: Melissa is a 58 y.o. male with past medical history below who presented to ED with healthcare acquired pneumonia. Hx significant for DMII, paraplegia, BATOOL, Hx of blood clots and resides at [facility]. (+) Chronic Bartlett, was recently found to have ESBL E coli UTI. Admitted 10/24 at [place] when he presented to ED for hypoxia and found to have pneumonia. Started on empiric Vancomycin/Merrem. Pt transferred to [facility] from [place] for CT Surgical specialty assessment for drainage of effusions. AdmitTED for further evaluation and management. - Transfer for Cardiothoracic surgical specialty assessment and drainage of loculations - Vanc/Merrem - reported allergy/intolerance to PCNs - Per documentation Ucx (+) for ESBL E coli, Klebiella and Proteus. Respiratory workup noted Covid/Influenza/RSV negative. Strep, Legionella negative. CT surgery seen the patient, recommends no acute surgical intervention at this time, recommends pulmonology for possible bronchoscopy, daily chest x-ray, can consider 3 attempts at thoracentesis if enlargement of pleural effusion seen in future days Pulmonary consulted ID consulted Interval History: 10/28/2023-No overnight issues. Patient is seen and examined Resting in his bed, NAD States he feels okay but still have some shortness of breath Labs reviewed sodium 134, hemoglobin 7.8 Case and plan discussed with patient and bedside nurse. All questions answered. Past Medical History: History reviewed. No pertinent past medical history. Adult diet Clear liquid 24HR INTAKE/OUTPUT: Intake/Output Summary (Last 24 hours) at 10/28/2023 08 Last data filed at 10/28/2023 0400 Gross per 24 hour Intake 880 ml Output 1850 ml Net -970 ml LABS: CBC: Recent Labs 10/28/23 0436 WBC 7.9 RBC 3.72* HGB 7.8* HCT 28.4* MCV 76.3* RDW 19.4* PLT 430 BMP: Recent Labs 10/27/23 23110/28/23 0436 NA 133* 134* K 4.4 4.1 CL 99 100 CO2 29 29 BUN 17 17 CREATININE 0.61* 0.56* GLUCOSE 154* 144* CALCIUM 8.3* 8.5 ANIONGAP 4 5 LIVER PROFILE: Recent Labs 10/27/23231010/28/236 AST 31 32 ALT 15 15 BILITOT 0.3 0.3 ALKPHOS 109 97 PROT 6.7 6.7 PT/INR: No results for input(s): PROTIME, INR in the last 72 hours. CARDIAC ENZYMES: No results for input(s): TROPONINI in the last 72 hours. Procalcitonin: No results found for: PROCAL COVID-19 PCR: No results for input(s): COVID19 in the last 72 hours. Objective: Vitals: BP 132/76 (BP Location: Right arm, Patient Position: Lying) Pulse 84 Temp 36.9 ?C (98.4 ?F) (Temporal) Resp 16 Ht 5' 7 (1.702 m) Wt (!) 312 lb 11.2 oz (142 kg) SpO2 98% BMI 48.98 kg/m? Pulse Ox: SpO2 Av % Min: 88 % Max: 98 % Supplemental O2: O2 Flow Rate (L/min): 4 L/min Physical Exam Constitutional: Appearance: He is obese. HENT: Head: Normocephalic and atraumatic. Mouth/Throat: Mouth: Mucous membranes are moist. Cardiovascular: Rate and Rhythm: Normal rate and regular rhythm. Pulmonary: Effort: Pulmonary effort is normal. Breath sounds: Decreased air movement present. Abdominal: Palpations: Abdomen is soft. Skin: General: Skin is warm and dry. Neurological: Mental Status: He is alert. Psychiatric: Mood and Affect: Mood normal. Medications: Scheduled PRN amLODIPine, 10 mg, Oral, Daily [Held by provider] apixaban, 5 mg, Oral, BID carvedilol, 12.5 mg, Oral, BID WC cetirizine, 10 mg, Oral, Daily gabapentin, 100 mg, Oral, BID guaiFENesin, 1,200 mg, Oral, BID insulin glargine, 24 Units, SubCUTAneous, q AM insulin lispro, 0-6 Units, SubCUTAneous, TID WC And insulin lispro, 0-6 Units, SubCUTAneous, Nightly melatonin, 6 mg, Oral, Nightly meropenem, 2,000 mg, IntraVENous, q8h morphine, 30 mg, Oral, BID pantoprazole, 40 mg, Oral, qAM AC senna-docusate sodium, 2 tablet, Oral, Nightly sodium chloride 0.9%, 5-40 mL, IntraVENous, q12h vancomycin, 1,750 mg, IntraVENous, q12h PRN medications: acetaminophen OR acetaminophen, albuterol, carboxymethylcellulose PF, dextrose, dextrose, glucagon (rDNA), glucose, methocarbamol, naloxone, ondansetron ODT OR ondansetron, oxyCODONE, polyethylene glycol (PEG) 3350, sodium chloride, sodium chloride 0.9% Continuous Assessment Data: (CAT1) Reviewed 3 or more notes from different specialty or health system (each=1). (CAT1) Reviewed 3 or more labs/studies ordered by another provider not previously counted (each=1, panels count as 1). (CAT1) Ordered 2 new labs and/or studies (each=1, panels count as 1). (LOW: 2x CAT1 or independent historian MOD: 3x CAT1 or 1x CAT3 EXTENSIVE: 3x CAT1 and 1x CAT3) Acute, acute on chronic, unstable/uncontrolled chronic problems/diagnoses: Healthcare Acquired Pneumonia Complicated Urinary Tract Infecti (more content not included)...[facility] [id number] Plan of care note* Care Plan - Sarah Thomas RN - 10/28/2023 2:09 AM EDT Problem: Knowledge Deficit Goal: Patient/family/caregiver demonstrates understanding of disease process, treatment plan, medications, and discharge instructions Outcome: Progressing Problem: Potential for Compromised Skin Integrity Goal: Skin Integrity is Maintained or Improved Outcome: Progressing Goal: Nutritional status is improving Outcome: Progressing Problem: Urinary Incontinence Goal: Perineal skin integrity is maintained or improved Outcome: Progressing Problem: Hemodynamic Status Goal: Patient's vitals signs are stable Outcome: Progressing Problem: Excessive Fluid Volume Goal: Fluid and electrolyte balance are achieved/maintained Outcome: Progressing Problem: Inadequate Gas Exchange Goal: Nutritional status is improving Outcome: Progressing Goal: Patient is adequately oxygenated and ventilation is improved Outcome: Progressing Problem: Activity Intolerance/Impaired Mobility Goal: Mobility/activity is maintained at optimum level for patient Outcome: Progressing Problem: Nutrition Goal: Nutritional status is improving Outcome: Progressing The patient is Moderately Stable - Low risk of patient condition declining or worsening [employer] [id number] Consult note* Margaret Dubois PharmD - 10/27/2023 11:40 PM EDT Images from the original note were not included. Pharmacy Managed Vancomycin Dosing Service Consult Note Consult Date: 10/27/23 Patient Name: Melissa Elias Allergies: Patient has no known allergies. Age: 58 y.o. Sex: male Estimated body mass index is 48.98 kg/m as calculated from the following: Height as of this encounter: 1.702 m (5' 7). Weight as of this encounter: 142 kg (312 lb 11.2 oz). DW: 142 kg Lab Results Component Value Date CREATININE 0.61 (L) 10/27/2023 CREATININE 0.48 (L) 01/04/2023 BUN 17 10/27/2023 BUN 14 01/04/2023 WBC 8.7 01/04/2023 Calculated CrCl: 125 mL/min (Cockcroft-Gault) Consulted By: Ellyn De León Infectious Diagnosis: Pneumonia (HAP) (AUC Goal 400-600 mg/L*hr) Random Vancomycin Level Due: 10/29/23 Antimicrobials: Patient recently received an antibiotic (last 12 hours) None Assessment/Plan: Doses, serum creatinine, and vancomycin levels interfaced automatically to [employer] and data has been analyzed and interpreted. Start Vancomycin 2000 mg ONCE followed by vancomycin 1750 mg every 12 hours based on patient age, weight, renal function, and infectious diagnosis (12.3 mg/kg). Predicted AUC = 499 mg/L*hr (goal 400-600 mg/L*hr) PAUC = 85% (probability that AUC is >400 mg/L*hr) Pconc = 7% (probability that Ctrough is above 20 mcg/mL (toxicity)) Will assess random level on 10/29/23 and adjust as appropriate. Trend serum creatinine. Orders placed. Thank you for this consult. Please secure text or call with questions. DATE: 10/27/23 TIME: 11:39 PM Margaret Dubois PharmD Clinical Pharmacist Available via Secure Chat [facility] [id number] History and physical note* Ellyn De León MD - 10/27/2023 9:44 PM EDT Attending History and Physical Admit Date: 10/27/2023 PCP: ROCIO BARTLETT CHIEF COMPLAINT: Healthcare Acquired Pneumonia Reason for Admission: Same as above History Obtained From: patient, EMR HISTORY OF PRESENT ILLNESS: Melissa is a 58 y.o. male with past medical history below who presents with chief complaint listed above. Hx significant for DMII, paraplegia, BATOOL, Hx of blood clots and resides at [facility]. (+) Chronic Bartlett, was recently found to have ESBL E coli UTI. Admitted 10/24 at [place] when he presented to ED for hypoxia and found to have pneumonia. Started on empiric Vancomycin/Merrem. [facility] [place] [facility] for CT Surgical specialty assessment for drainage of effusions. Will admit for further evaluation and management. - Transfer for Cardiothoracic surgical specialty assessment and drainage of loculations - Vanc/Merrem - reported allergy/intolerance to PCNs - Per documentation Ucx (+) for ESBL E coli, Klebiella and Proteus. Respiratory workup noted Covid/Influenza/RSV negative. Strep, Legionella negative. Past Medical History: No past medical history on file. Past Surgical History: No past surgical history on file. Social History: Social History Socioeconomic History Marital status: Single Spouse name: Not on file Number of children: Not on file Years of education: Not on file Highest education level: Not on file Occupational History Not on file Tobacco Use Smoking status: Not on file Smokeless tobacco: Not on file Substance and Sexual Activity Alcohol use: Not on file Drug use: Not on file Sexual activity: Not on file Other Topics Concern Not on file Social History Narrative Not on file Social Determinants of Health Financial Resource Strain: Not on file Food Insecurity: Not on file Transportation Needs: Not on file Physical Activity: Not on file Stress: Not on file Social Connections: Not on file Intimate Partner Violence: Not on file Housing Stability: Not on file Family History: No family history on file. Medications Prior to Admission: No current facility-administered medications on file prior to encounter. No current outpatient medications on file prior to encounter. Allergies: No Known Allergies REVIEW OF SYSTEMS: As documented in HPI Vitals: BP 140/70 (BP Location: Right arm, Patient Position: Lying) Pulse 95 Temp 36.8 C (98.3 F) (Temporal) Resp 20 Ht 5' 7 (1.702 m) Wt (!) 312 lb 11.2 oz (142 kg) SpO2 90% BMI 48.98 kg/m BMI Classification: Morbidly Obese (>40.0) Pulse Ox: SpO2 Av % Min: 90 % Max: 90 % Supplemental O2: O2 Flow Rate (L/min): 4 L/min PHYSICAL EXAM: Physical Exam Constitutional: General: He is awake. Comments: Awake, alert and conversant. (+) mild Dyspnea w/ speech HENT: Head: Normocephalic and atraumatic. Eyes: General: Vision grossly intact. Gaze aligned appropriately. Extraocular Movements: Extraocular movements intact. Pupils: Pupils are equal, round, and reactive to light. Cardiovascular: Rate and Rhythm: Normal rate and regular rhythm. Pulmonary: Breath sounds: Decreased air movement present. No wheezing, rhonchi or rales. Skin: General: Skin is warm and dry. Neurological: General: No focal deficit present. Mental Status: He is alert and oriented to person, place, and time. Cranial Nerves: Cranial nerves 2-12 are intact. Psychiatric: Behavior: Behavior is cooperative. DATA: CBC: No results for input(s): WBC, RBC, HGB, HCT, MCV, RDW, PLT in the last 72 hours. BMP:No results for input(s): NA, K, CL, CO2, BUN, CREATININE, GLUCOSE, CALCIUM, ANIONGAP in the last 72 hours. LIVER PROFILE:No results for input(s): AST, ALT, BILITOT, ALKPHOS, PROT in the last 72 hours. No lab exists for component: LABALBU PT/INR: No results for input(s): PROTIME, INR in the last 72 hours. CARDIAC ENZYMES: No results for input(s): TROPONINI in the last 72 hours. Procalcitonin: No results found for: PROCAL Urine Culture: No results found for this or any previous visit. COVID-19 PCR: No results for input(s): COVID19 in the last 72 hours. I reviewed: [x] laboratory results [x] radiographic results At the time of today's encounter. Pt was advised of the results. Data: Assessment Discussed management with the ED provider and agree with hospitalization. Acute, acute on chronic, unstable/uncontrolled chronic problems/diagnoses: Healthcare Acquired Pneumonia - CT Surgery consulted for assessment, drainage per transfer documentation - Vanc/Merrem - ID specialty consulted - Pulmonology specialty consulted - Incentive spirometry, Mucinex BID to encourage pulmonary hygiene - Eliquis held pending specialist assessment for procedure - Supplemental O2 as needed to maintain SpO2 >90% 2. Complicated Urinary Tract Infection - ESBL Klebsiella - Pt currently on Vanc/Merrem Stable chronic problems affecting care, new non-acute diagnoses: Diabetes Mellitus - Continue home diabetic regimen - Check blood glucose qACHS w/ insulin sliding scale coverage 2. BATOOL on BiPAP - Ordered for at bedtime and PRN 3. Chronic Pain - Morphine 30mg PO BID - Oxycodone 5mg PRN Plan As a result of the above findings & factors, the following mgmt was pursued: - am labs, replace lytes prn - PT/OT/CM/SW - delirium precautions: increase activity and limit nighttime disturbances - DVT prophylaxis: SCDs and encourage ambulation Complexity: Acute illness with systemic symptoms (MOD). Risk: Use/consideration of therapy requiring intensive monitoring: parenteral nephrotoxic antibiotics, ex: gentamycin, vancomycin (anaphylaxis, DIVINA/ATN, renal failure); BMP, trough levels (HIGH). Admission to hospital-level care was considered or occurred (HIGH). Advance Directive: FULL CODE Anticipated Discharge - Date - 10/29 - Location - TBD Total time spent (which include face to face and non face to face encounters) : 62 minutes. Extended Emergency Contact Information Primary Emergency Contact: Marci Elias Mobile Relation: Mother Preferred language: German Grab Jack Man needed? No Secondary Emergency Contact: Aletha Brasher Mobile Relation: Sibling Preferred language: German Ellyn De León MD Division of Hospitalist Medicine [facility] Medical [facility] [place] [facility] [id number] NoteAttending History and Physical Admit Date: 10/27/2023 PCP: ROCIO BARTLETT CHIEF COMPLAINT: Healthcare Acquired Pneumonia Reason for Admission: Same as above History Obtained From: patient, EMR HISTORY OF PRESENT ILLNESS: Melissa is a 58 y.o. male with past medical history below who presents with chief complaint listed above. Hx significant for DMII, paraplegia, BATOOL, Hx of blood clots and resides at [facility]. (+) Chronic Bartlett, was recently found to have ESBL E coli UTI. Admitted 10/24 at [place] when he presented to ED for hypoxia and found to have pneumonia. Started on empiric Vancomycin/Merrem. Pt transferred to [facility] from [place] [facility] for CT Surgical specialty assessment for drainage of effusions. Will admit for further evaluation and management. - Transfer for Cardiothoracic surgical specialty assessment and drainage of loculations - Vanc/Merrem - reported allergy/intolerance to PCNs - Per documentation Ucx (+) for ESBL E coli, Klebiella and Proteus. Respiratory workup noted Covid/Influenza/RSV negative. Strep, Legionella negative. Past Medical History: No past medical history on file. Past Surgical History: No past surgical history on file. Social History: Social History Socioeconomic History Marital status: Single Spouse name: Not on file Number of children: Not on file Years of education: Not on file Highest education level: Not on file Occupational History Not on file Tobacco Use Smoking status: Not on file Smokeless tobacco: Not on file Substance and Sexual Activity Alcohol use: Not on file Drug use: Not on file Sexual activity: Not on file Other Topics Concern Not on file Social History Narrative Not on file Social Determinants of Health Financial Resource Strain: Not on file Food Insecurity: Not on file Transportation Needs: Not on file Physical Activity: Not on file Stress: Not on file Social Connections: Not on file Intimate Partner Violence: Not on file Housing Stability: Not on file Family History: No family history on file. Medications Prior to Admission: No current facility-administered medications on file prior to encounter. No current outpatient medications on file prior to encounter. Allergies: No Known Allergies REVIEW OF SYSTEMS: As documented in HPI Vitals: BP 140/70 (BP Location: Right arm, Patient Position: Lying) Pulse 95 Temp 36.8 ?C (98.3 ?F) (Temporal) Resp 20 Ht 5' 7 (1.702 m) Wt (!) 312 lb 11.2 oz (142 kg) SpO2 90% BMI 48.98 kg/m? BMI Classification: Morbidly Obese (>40.0) Pulse Ox: SpO2 Av % Min: 90 % Max: 90 % Supplemental O2: O2 Flow Rate (L/min): 4 L/min PHYSICAL EXAM: Physical Exam Constitutional: General: He is awake. Comments: Awake, alert and conversant. (+) mild Dyspnea w/ speech HENT: Head: Normocephalic and atraumatic. Eyes: General: Vision grossly intact. Gaze aligned appropriately. Extraocular Movements: Extraocular movements intact. Pupils: Pupils are equal, round, and reactive to light. Cardiovascular: Rate and Rhythm: Normal rate and regular rhythm. Pulmonary: Breath sounds: Decreased air movement present. No wheezing, rhonchi or rales. Skin: General: Skin is warm and dry. Neurological: General: No focal deficit present. Mental Status: He is alert and oriented to person, place, and time. Cranial Nerves: Cranial nerves 2-12 are intact. Psychiatric: Behavior: Behavior is cooperative. DATA: CBC: No results for input(s): WBC, RBC, HGB, HCT, MCV, RDW, PLT in the last 72 hours. BMP:No results for input(s): NA, K, CL, CO2, BUN, CREATININE, GLUCOSE, CALCIUM, ANIONGAP in the last 72 hours. LIVER PROFILE:No results for input(s): AST, ALT, BILITOT, ALKPHOS, PROT in the last 72 hours. No lab exists for component: LABALBU PT/INR: No results for input(s): PROTIME, INR in the last 72 hours. CARDIAC ENZYMES: No results for input(s): TROPONINI in the last 72 hours. Procalcitonin: No results found for: PROCAL Urine Culture: No results found for this or any previous visit. COVID-19 PCR: No results for input(s): COVID19 in the last 72 hours. I reviewed: [x] laboratory results [x] radiographic results At the time of today's encounter. Pt was advised of the results. Data: Assessment Discussed management with the ED provider and agree with hospitalization. Acute, acute on chronic, unstable/uncontrolled chronic problems/diagnoses: Healthcare Acquired Pneumonia - CT Surgery consulted for assessment, drainage per transfer documentation - Vanc/Merrem - ID specialty consulted - Pulmonology specialty consulted - Incentive spirometry, Mucinex BID to encourage pulmonary hygiene - Eliquis held pending specialist assessment for procedure - Supplemental O2 as needed to maintain SpO2 >90% 2. Complicated Urinary Tract Infection - ESBL Klebsiella - Pt currently on Vanc/Nery (more content not included)...[facility] 10-27-2023 History and physical note* Ellyn De León MD - 10/27/2023 9:44 PM EDT Attending History and Physical Admit Date: 10/27/2023 PCP: ROCIO BARTLETT CHIEF COMPLAINT: Healthcare Acquired Pneumonia Reason for Admission: Same as above History Obtained From: patient, EMR HISTORY OF PRESENT ILLNESS: Melissa is a 58 y.o. male with past medical history below who presents with chief complaint listed above. Hx significant for DMII, paraplegia, BATOOL, Hx of blood clots and resides at [facility] [place]. (+) Chronic Bartlett, was recently found to have ESBL E coli UTI. Admitted 10/24 at [place] when he presented to ED for hypoxia and found to have pneumonia. Started on empiric Vancomycin/Merrem. [facility] [place] [facility] for [facility] Surgical specialty assessment for drainage of effusions. Will admit for further evaluation and management. - Transfer for Cardiothoracic surgical specialty assessment and drainage of loculations - Vanc/Merrem - reported allergy/intolerance to PCNs - Per documentation Ucx (+) for ESBL E coli, Klebiella and Proteus. Respiratory workup noted Covid/Influenza/RSV negative. Strep, Legionella negative. Past Medical History: No past medical history on file. Past Surgical History: No past surgical history on file. Social History: Social History Socioeconomic History Marital status: Single Spouse name: Not on file Number of children: Not on file Years of education: Not on file Highest education level: Not on file Occupational History Not on file Tobacco Use Smoking status: Not on file Smokeless tobacco: Not on file Substance and Sexual Activity Alcohol use: Not on file Drug use: Not on file Sexual activity: Not on file Other Topics Concern Not on file Social History Narrative Not on file Social Determinants of Health Financial Resource Strain: Not on file Food Insecurity: Not on file Transportation Needs: Not on file Physical Activity: Not on file Stress: Not on file Social Connections: Not on file Intimate Partner Violence: Not on file Housing Stability: Not on file Family History: No family history on file. Medications Prior to Admission: No current facility-administered medications on file prior to encounter. No current outpatient medications on file prior to encounter. Allergies: No Known Allergies REVIEW OF SYSTEMS: As documented in HPI Vitals: BP 140/70 (BP Location: Right arm, Patient Position: Lying) Pulse 95 Temp 36.8 C (98.3 F) (Temporal) Resp 20 Ht 5' 7 (1.702 m) Wt (!) 312 lb 11.2 oz (142 kg) SpO2 90% BMI 48.98 kg/m BMI Classification: Morbidly Obese (>40.0) Pulse Ox: SpO2 Av % Min: 90 % Max: 90 % Supplemental O2: O2 Flow Rate (L/min): 4 L/min PHYSICAL EXAM: Physical Exam Constitutional: General: He is awake. Comments: Awake, alert and conversant. (+) mild Dyspnea w/ speech HENT: Head: Normocephalic and atraumatic. Eyes: General: Vision grossly intact. Gaze aligned appropriately. Extraocular Movements: Extraocular movements intact. Pupils: Pupils are equal, round, and reactive to light. Cardiovascular: Rate and Rhythm: Normal rate and regular rhythm. Pulmonary: Breath sounds: Decreased air movement present. No wheezing, rhonchi or rales. Skin: General: Skin is warm and dry. Neurological: General: No focal deficit present. Mental Status: He is alert and oriented to person, place, and time. Cranial Nerves: Cranial nerves 2-12 are intact. Psychiatric: Behavior: Behavior is cooperative. DATA: CBC: No results for input(s): WBC, RBC, HGB, HCT, MCV, RDW, PLT in the last 72 hours. BMP:No results for input(s): NA, K, CL, CO2, BUN, CREATININE, GLUCOSE, CALCIUM, ANIONGAP in the last 72 hours. LIVER PROFILE:No results for input(s): AST, ALT, BILITOT, ALKPHOS, PROT in the last 72 hours. No lab exists for component: LABALBU PT/INR: No results for input(s): PROTIME, INR in the last 72 hours. CARDIAC ENZYMES: No results for input(s): TROPONINI in the last 72 hours. Procalcitonin: No results found for: PROCAL Urine Culture: No results found for this or any previous visit. COVID-19 PCR: No results for input(s): COVID19 in the last 72 hours. I reviewed: [x] laboratory results [x] radiographic results At the time of today's encounter. Pt was advised of the results. Data: Assessment Discussed management with the ED provider and agree with hospitalization. Acute, acute on chronic, unstable/uncontrolled chronic problems/diagnoses: Healthcare Acquired Pneumonia - CT Surgery consulted for assessment, drainage per transfer documentation - Vanc/Merrem - ID specialty consulted - Pulmonology specialty consulted - Incentive spirometry, Mucinex BID to encourage pulmonary hygiene - Eliquis held pending specialist assessment for procedure - Supplemental O2 as needed to maintain SpO2 >90% 2. Complicated Urinary Tract Infection - ESBL Klebsiella - Pt currently on Vanc/Merrem Stable chronic problems affecting care, new non-acute diagnoses: Diabetes Mellitus - Continue home diabetic regimen - Check blood glucose qACHS w/ insulin sliding scale coverage 2. BATOOL on BiPAP - Ordered for at bedtime and PRN 3. Chronic Pain - Morphine 30mg PO BID - Oxycodone 5mg PRN Plan As a result of the above findings & factors, the following mgmt was pursued: - am labs, replace lytes prn - PT/OT/CM/SW - delirium precautions: increase activity and limit nighttime disturbances - DVT prophylaxis: SCDs and encourage ambulation Complexity: Acute illness with systemic symptoms (MOD). Risk: Use/consideration of therapy requiring intensive monitoring: parenteral nephrotoxic antibiotics, ex: gentamycin, vancomycin (anaphylaxis, DIVINA/ATN, renal failure); BMP, trough levels (HIGH). Admission to hospital-level care was considered or occurred (HIGH). Advance Directive: FULL CODE Anticipated Discharge - Date - 10/29 - Location - TBD Total time spent (which include face to face and non face to face encounters) : 62 minutes. Extended Emergency Contact Information Primary Emergency Contact: Marci Elias Mobile Relation: Mother Preferred language: German Grab Jack Man needed? No Secondary Emergency Contact: Aletha Brasher Mobile Relation: Sibling Preferred language: German Ellyn De León MD [facility] [place] documented in this encounterSDayton VA Medical [id number] Telephone encounter Note* Telephone Encounter - Boaz Hernandez RN - 10/19/2023 3:12 PM EDT Called and got patient rescheduled [facility]06-05-2024 Miscellaneous Notes* Telephone Encounter - Boaz Hernandez RN - 10/19/2023 3:12 PM EDT Called and got patient rescheduled * Telephone Encounter - Yaneli Sarkar RN - 10/18/2023 4:41 PM EDT Hamzah from [facility] Transportation Liaison calling as he got a call that we need to change his 11-03-2023 Cath change appt when a physician is in office. She was calling back to get that changed. I left a message with her. Please call her at [phone] to do Nurse visit when provider in office. [facility] Telephone encounter Note * Telephone Encounter - Yaneli Sarkar RN - 10/18/2023 4:41 PM EDT Hamzah from [facility] Transportation Liaison calling as he got a call that we need to change his 11-03-2023 Cath change appt when a physician is in office. She was calling back to get that changed. I left a message with her. Please call her at [phone] to do Nurse visit when provider in office. [facility]05-24-2024 History of Present illness Narrative* Willem Glaser MD - 10/07/2023 8:30 AM EDT Images from the original note were not included. [facility] UR[facility] NOTE Patient: Melissa Elias Provider: Willem Glaser MD : 1965 Date of Service: 10/07/2023 PCP: Peter Thayer DO Chief complaint/Identification: Melissa Elias is a 58 year old male patient who presents for evaluation of urinary retention. ASSESSMENT: 1. Chronic indwelling Bartlett catheter - ICD9: V45.89, ICD10: Z97.8 (primary diagnosis) 2. Wound of sacral region, sequela - ICD9: 906.0, ICD10: S31.000S 3. Paraplegia (HCC) - ICD9: 344.1, ICD10: G82.20 Unclear reason for Bartlett catheter, possibly for sacral wound care. Patient states he was urinating on his own previously, although now he has decreased sensation below the waist. -Chronic catheter complicated by several traumatic catheter changes, requiring OR visit for gross hematuria, clot evacuation Reported history of traumatic Bartlett catheter insertions with need for clot evacuation 1 month ago PLAN: Catheter changed without issue today Will arrange monthly nursing visit for catheter changes Discussed placement of suprapubic tube instead of chronic urethral Bartlett catheter. This would allowfor easier catheter changes, as well as the ability to cap the catheter and give a trial of void when sacral wound is healed. If able to void spontaneously, then suprapubic catheter could be removed and the tract closes quickly. -Patient will consider suprapubic tube, and let us know if he wants to proceed with that route in the future Willem Glaser MD HPI: Melissa Elias is a 58 year old year old male who is being seen for urinary retention. PMHx: paraplegia, chronic sacral wound, chronic urinary retention 10/07/2023 Presents for Bartlett catheter change. Nursing requested urology changes catheter as last month he hada traumatic Bartlett insertion, resulting in gross hematuria and need for cystoscopy/clot evacuation at outside hospital. 07/30/2023: C/S [place] - Hematuria after Bartlett malpositioned in prostatic urethra Patient has had his Bartlett catheter since last year. Reports it was placed because of his sacral wound. Reports he was urinating prior to catheter placement. Says he was not incontinent of urine. REVIEW OF SYSTEMS: A ROS was performed and pertinent negatives and positives can be found in the HPI. RELEVANT IMAGING STUDIES (most recent): No recent imaging LABS/INVESTIGATIONS: Urine Chemstrip: NA Creatinine Date Value Ref Range Status 08/12/2023 0.52 (L) 0.73 - 1.22 mg/dL Final 08/11/2023 0.54 (L) 0.73 - 1.22 mg/dL Final 08/09/2023 0.46 (L) 0.73 - 1.22 mg/dL Final 08/08/2023 0.44 (L) 0.73 - 1.22 mg/dL Final Hemoglobin Date Value 08/12/2023 7.8 g/dL 01/12/2021 9.1 G/DL Hematocrit (%) Date Value 08/12/2023 27.2 01/12/2021 29.0 HCT (%) Date Value 12/27/2022 28.9 WBC Date Value 08/12/2023 9.64 k/uL 12/27/2022 5.3 K/uL 01/12/2021 7.8 K/CUMM No results found for: PSA, PSAPER HISTORIES No family history on file. PAST MEDICAL HISTORY Diagnosis Date Back pain BMI 50.0-59.9, adult (HCC) HTN (hypertension) Obesity PAST SURGICAL HISTORY Procedure Laterality Date PAST SURGICAL HISTORY OF 08/25/2016 L4-5 TLIF Lami L4-5 DOS 08/25/2016 second surgery 03-09- PICC LINE INSERTION (PICC TEAM) ([place]) 12/01/2022 TONSILLECTOMY AND ADENOIDECTOMY HX Social History Tobacco Use Smoking status: Never Passive exposure: Never Smokeless tobacco: Never Vaping Use Vaping Use: Never used Substance Use Topics Alcohol use: No Drug use: No ALLERGIES No Known Allergies Current Outpatient Medications Medication Sig Dispense Refill guaiFENesin (MUCINEX) 600 mg 12 hr tablet Take 1 tablet by mouth two times a day as needed (congestion). diphenhydrAMINE-Zinc Acetate (BENADRYL) cream Apply to affected area three times a day as needed for itching/rash. FOR EXTERNAL USE ONLY APPLY TO: BACK sodium hypochlorite (DAKIN'S QUARTER STRENGTH) 0.125 % soln Irrigate 1 mL as instructed two times aday. FOR EXTERNAL USE ONLY APPLY TO: Sacrum wound with the dressing change insulin glargine 100 unit/mL (3 mL) Inject 20 Units subcutaneously every morning. furosemide (LASIX) 40 mg tablet Take 1 tablet by mouth every Tuesday and Tuesday. insulin needles, DISPOSABLE, (BD INSULIN PEN NEEDLE UF) 31 gauge x 5/16 1 Each four times daily. 100 Each 0 alcohol swabs Apply 1 application to affected area four times daily. 100 Each 1 acetaminophen (TYLENOL) 500 mg tablet 2 tablets by ORAL/FEEDING TUBE route every 6 hours as needed for pain or fever (specify) (mild pain). acetylcysteine (MUCOMYST) 200 mg/mL (20 %) solution Inhale 1 mL as instructed every 6 hours as needed (secretions). albuterol (PROVENTIL) 2.5 mg /3 mL (0.083 %) nebulizer solution Use 3 mL via nebulizer every 6 hours as needed for wheezing/shortness of breath. aspirin 81 mg chewable tablet 1 tablet by ORAL/FEEDING TUBE route once daily. insulin lispro 100 unit/mL injection Inject 0-5 Units subcutaneously with meals and at bedtime. Scale 1 If Blood Glucose (mg/dL) is: Less than 110 Give 0 units 111-150 Give 0 units 151-200 Give 1 unit 201-250 Give 2 units 251-300 Give 3 units 301-350 Give 4 units 351-400 Give 5 units Greater than 400 Give 5 units and Notify Provider Notify provider if 2 consecutive blood glucose values in the previous 24 hours are greater than 250 mg/dL and there have been no changes to the insulin regimen in the previous 24 hours. methocarbamol 1,000 mg tablet Take 1 tablet by mouth three times a day as needed (muscle spasms). methyl salicylate 30% - menthol 10% (ICY HOT) 30-10 % cream Apply to affected area three times a day as needed (upper back back). miconazole 2 % powder Apply 1 application to affected area two times a day. ondansetron, PF, (ZOFRAN) 4 mg/2 mL soln Inject 4 mg intravenously every 6 hours as needed for nausea/vomiting. orphenadrine (NORFLEX) 30 mg/mL injection Inject 1 mL intravenously every [address] (PROTONIX) 40 mg tablet Take 1 tablet by mouth daily at 6 am. polyethylene glycol 3350 17 gram packet 1 Packet by ORAL/FEEDING TUBE route once daily. Dissolve dose in 4 - 8 ounces of liquid and take as directed. senna (SENOKOT) 8.6 mg tab Take 1 tablet by mouth two times a day. sodium chloride 0.65 % nasal spray Use 2 Sprays in each nostril as needed. triamcinolone acetonide (KENALOG) 0.1 % cream Apply to affected area three times a day as needed. naloxone 4 mg/actuation nasal spray (NARCAN) Use 1 spray in one nostril as needed for overdose. Mayrepeat every 2 to 3 min in alternating nostrils until medical assistance is available 0 Miscellaneous Medical Supply 1 Each once daily. Kelli Lift 1 Each 0 gabapentin (NEURONTIN) 100 mg capsule Take 1 capsule by mouth every 8 hours for 30 days. morphine SR (MS CONTIN) 15 mg 12 hr tablet Take 1 tablet by mouth every 12 hours for 7 days. 0 rivaroxaban (XARELTO) 20 mg tablet Take 1 tablet by mouth daily with dinner. No current facility-administered medications for this visit. PHYSICAL EXAMINATION: Vitals: Ht 170.2 cm (5' 7) Wt 131.5 kg (290 lb) BMI 45.42 kg/m BMI: Body mass index is 45.42 kg/m . Constitutional: Apparent distress -No Psych: Alert & oriented - Yes; : Deferred documented in this encounterMed[facility] NoteHNO ID: [id number] Author: WILLEM GLASER MD Service: ? Author Type: Physician Type: Progress Notes Filed: 10/07/2023 09:13 Note Text: [facility] NOTE Patient: Melissa Elias Provider: Willem Glaser MD : 1965 Date of Service: 10/07/2023 PCP: Peter Thayer DO Chief complaint/Identification: Melissa Elias is a 58 year old male patient who presents for evaluation of urinary retention. ASSESSMENT: 1. Chronic indwelling Bartlett catheter - ICD9: V45.89, ICD10: Z97.8 (primary diagnosis) 2. Wound of sacral region, sequela - ICD9: 906.0, ICD10: S31.000S 3. Paraplegia (HCC) - ICD9: 344.1, ICD10: G82.20 Unclear reason for Bartlett catheter, possibly for sacral wound care. Patient states he was urinating on his own previously, although now he has decreased sensation below the waist. -Chronic catheter complicated by several traumatic catheter changes, requiring OR visit for gross hematuria, clot evacuation Reported history of traumatic Bartlett catheter insertions with need for clot evacuation 1 month ago PLAN: Catheter changed without issue today Will arrange monthly nursing visit for catheter changes Discussed placement of suprapubic tube instead of chronic urethral Bartlett catheter. This would allow for easier catheter changes, as well as the ability to cap the catheter and give a trial of void when sacral wound is healed. If able to void spontaneously, then suprapubic catheter could be removed and the tract closes quickly. -Patient will consider suprapubic tube, and let us know if he wants to proceed with that route in the future Willem Glaser MD HPI: Melissa Elias is a 58 year old year old male who is being seen for urinary retention. PMHx: paraplegia, chronic sacral wound, chronic urinary retention 10/07/2023 Presents for Bartlett catheter change. Nursing requested urology changes catheter as last month he had a traumatic Bartlett insertion, resulting in gross hematuria and need for cystoscopy/clot evacuation at outside hospital. 07/30/2023: C/S [place] - Hematuria after Bartlett malpositioned in prostatic urethra Patient has had his Bartlett catheter since last year. Reports it was placed because of his sacral wound. Reports he was urinating prior to catheter placement. Says he was not incontinent of urine. REVIEW OF SYSTEMS: A ROS was performed and pertinent negatives and positives can be found in the HPI. RELEVANT IMAGING STUDIES (most recent): No recent imaging LABS/INVESTIGATIONS: Urine Chemstrip: NA Creatinine Date Value Ref Range Status 08/12/2023 0.52 (L) 0.73 - 1.22 mg/dL Final 08/11/2023 0.54 (L) 0.73 - 1.22 mg/dL Final 08/09/2023 0.46 (L) 0.73 - 1.22 mg/dL Final 08/08/2023 0.44 (L) 0.73 - 1.22 mg/dL Final Hemoglobin Date Value 08/12/2023 7.8 g/dL 01/12/2021 9.1 G/DL Hematocrit (%) Date Value 08/12/2023 27.2 01/12/2021 29.0 HCT (%) Date Value 12/27/2022 28.9 WBC Date Value 08/12/2023 9.64 k/uL 12/27/2022 5.3 K/uL 01/12/2021 7.8 K/CUMM No results found for: PSA, PSAPER HISTORIES No family history on file. PAST MEDICAL HISTORY Diagnosis Date Back pain BMI 50.0-59.9, adult (HCC) HTN (hypertension) Obesity PAST SURGICAL HISTORY Procedure Laterality Date PAST SURGICAL HISTORY OF 08/25/2016 L4-5 TLIF [place] L4-5 DOS 08/25/2016 second surgery 03-09-17 PICC LINE INSERTION (PICC TEAM) ([place]) 12/01/2022 TONSILLECTOMY AND ADENOIDECTOMY HX Social History Tobacco Use Smoking status: Never Passive exposure: Never Smokeless tobacco: Never Vaping Use Vaping Use: Never used Substance Use Topics Alcohol use: No Drug use: No ALLERGIES No Known Allergies Current Outpatient Medications Medication Sig Dispense Refill guaiFENesin (MUCINEX) 600 mg 12 hr tablet Take 1 tablet by mouth two times a day as needed (congestion). diphenhydrAMINE-Zinc Acetate (BENADRYL) cream Apply to affected area three times a day as needed for itching/rash. FOR EXTERNAL USE ONLY APPLY TO: BACK sodium hypochlorite (DAKIN'S QUARTER STRENGTH) 0.125 % soln Irrigate 1 mL as instructed two times a day. FOR EXTERNAL USE ONLY APPLY TO: Sacrum wound with the dressing change insulin glargine 100 unit/mL (3 mL) Inject 20 Units subcutaneously every morning. furosemide (LASIX) 40 mg tablet Take 1 tablet by mouth every Tuesday and Tuesday. insulin needles, DISPOSABLE, (BD INSULIN PEN NEEDLE UF) 31 gauge x 5/16 1 Each four times daily. 100 Each 0 alcohol swabs Apply 1 application to affected area four times daily. 100 Each 1 acetaminophen (TYLENOL) 500 mg tablet 2 tablets by ORAL/FEEDING TUBE route every 6 hours as needed for pain or fever (specify) (mild pain). acetylcysteine (MUCOMYST) 200 mg/mL (20 %) solution Inhale 1 mL as instructed every 6 hours as needed (secretions). albuterol (PROV (more content not included)...[facility] 09-29-2023 History of Present illness Narrative* Johanne Hammond - 02/29/2024 10:00 AM EDT Error * Lenard Ling MD - 02/29/2024 10:00 AM EDT Department of Plastic Surgery - Adult Attending Consult Note Reason for Consult: Large sacral decubitus ulcer most likely stage IV Requesting Physician: Patient referred by his facility CHIEF COMPLAINT: Stage IV sacral decubitus History Obtained From: patient HISTORY OF PRESENT ILLNESS: The patient is a 58 y.o. male who presents with significant history of traumatic fall from a chair early 2022. Patient reports that following the fall he sustained a spinal fracture at the prior surgical site with direct compression of the spinal cord. Since then patient has been paraplegic. He reports developing a sacral decubitus ulcer in February 2023. This has been managed at the facility where the patient stays with wet-to-dry dressing. Patient reports that prior to the traumatic event he was able to walk normally sometimes assisted with a cane for long distance walk. He also endorses significant history of pulmonary embolism since his traumatic incident. He is currently on therapeutic Eliquis, 5 mg every 12 hours. He denies any chest pain. Patient is a former smoker. He quit smoking back in 2003. He reports that his last weight in the facility was yesterday and it was recorded at 293 pounds. Past Medical History: Past Medical History: Diagnosis Date Acute posthemorrhagic anemia Acute respiratory failure with hypoxia ([facility]) Cellulitis of left lower limb Cellulitis of right lower limb Cellulitis of right lower limb Chronic diastolic (congestive) heart failure ([facility]) Chronic pain syndrome Colostomy status ([facility]/HCC) (HCC) Constipation Difficulty in walking, not elsewhere classified Dry eye syndrome of bilateral lacrimal glands Essential (primary) hypertension Gastroesophageal reflux disease without esophagitis Insomnia, unspecified Iron deficiency anemia, unspecified Low back pain, unspecified Morbid (severe) obesity due to excess calories ([facility]) Muscle weakness (generalized) Nasal congestion Nausea Need for assistance with personal care Neuromuscular dysfunction of bladder, unspecified Obstructive sleep apnea (adult) (pediatric) Other disorders of plasma-protein metabolism, not elsewhere classified Other mechanical complication of other urinary catheter, initial encounter ([facility]) Other muscle spasm Paraplegia, unspecified ([facility]) Peripheral vascular disease, unspecified ([facility]) Personal history of other diseases of urinary system Personal history of venous thrombosis and embolism Pleural effusion in other conditions classified elsewhere Pneumonia, bacterial Pressure ulcer of right buttock, stage 3 (HCC) Pressure ulcer of sacral region, stage 4 ([facility]) Pressure ulcer, buttock, right, unstageable ([facility]) Retention of urine, unspecified Spinal stenosis, lumbar region, without neurogenic claudication Type 2 diabetes mellitus with polyneuropathy ([facility]) Unspecified bacterial pneumonia Unspecified infectious disease Unspecified protein-calorie malnutrition (HCC) Past Surgical History: Past Surgical History: Procedure Laterality Date BACK SURGERY 08/2005 lumbar BACK SURGERY 2017 lumbar revision BACK SURGERY 12/2020 Lumbar and t REPLACEMENT TOTAL HIP LATERAL POSITION Right 08/2020 Current Medications: Current Outpatient Medications Medication Instructions amLODIPine (NORVASC) 10 mg, Oral, Daily apixaban (ELIQUIS) 5 mg, Oral, 2 times daily carboxymethylcellulose PF (Refresh Plus) 0.5 % ophthalmic solution 1 drop, Both Eyes, 2 times dailyPRN carvedilol (COREG) 12.5 mg, Oral, 2 times daily with meals cetirizine (ZYRTEC) 10 mg, Oral, Daily diphenhydrAMINE (BENADRYL) 25 mg, Oral, Every 8 hours PRN ertapenem 1,000 mg in sodium chloride 0.9 % 50 mL IVPB 1,000 mg, IntraVENous, Every 24 hours gabapentin (NEURONTIN) 100 mg, Oral, 2 times daily guaiFENesin ER 1,200 mg, Oral, 2 times daily, Do not crush, chew, or split. insulin glargine (LANTUS) 24 Units, SubCUTAneous, Every morning melatonin 6 mg, Oral, Nightly Methocarbamol 1,000 mg, Oral, Every 8 hours PRN naloxone (NARCAN) 0.4 mg, IntraVENous, Every 5 min PRN pantoprazole (PROTONIX) 40 mg, Oral, Daily before breakfast, Do not crush, chew, or split. polyethylene glycol (PEG) 3350 (MIRALAX) 17 g, Oral, Daily PRN senna-docusate sodium (Senokot-S) 8.6-50 MG tablet 2 tablets, Oral, Nightly Allergies: Patient has no known allergies. Social History: Social History Socioeconomic History Marital status: Single Spouse name: Not on file Number of children: Not on file Years of education: Not on file Highest education level: Not on file Occupational History Not on file Tobacco Use Smoking status: Not on file Smokeless tobacco: Not on file Substance and Sexual Activity Alcohol use: Not on file Drug use: Not on file Sexual activity: Not on file Other Topics Concern Not on file Social History Narrative Not on file Social Determinants of Health Financial Resource Strain: Low Risk (02/08/2023) [facility] Overall Financial Resource Strain (CARDIA) Difficulty of Paying Living Expenses: Not hard at all Food Insecurity: No Food Insecurity (02/08/2023) Received from [facility] Hunger Vital Sign Worried About Running Out of Food in the Last Year: Never true Ran Out of Food in the Last Year: Never true Transportation Needs: No Transportation Needs (02/08/2023) Received from [facility] PRAPARE - Transportation Lack of Transportation (Medical): No Lack of Transportation (Non-Medical): No Physical Activity: Not on file Stress: Not on file Social Connections: Not on file Intimate Partner Violence: Not At Risk (10/28/2023) Humiliation, Afraid, Rape, and Kick questionnaire Fear of Current or Ex-Partner: No Emotionally Abused: No Physically Abused: No Sexually Abused: No Housing Stability: Low Risk (02/08/2023) Received from [facility] Housing Stability Vital Sign Unable to Pay for Housing in the Last Year: No Number of Places Lived in the Last Year: 1 Unstable Housing in the Last Year: No Family History: No family history on file. REVIEW OF SYSTEMS: CONSTITUTIONAL: negative for fevers, chills, sweats and fatigue EYES: negative for dipolpia or acute vision loss. RESPIRATORY: negative for dry cough, cough with sputum, dyspnea, wheezing and chest pain CARDIOVASCULAR: negative for chest pain, dyspnea, palpitations, syncope GASTROINTESTINAL: negative for nausea, vomiting, change in bowel habits, diarrhea, constipation andabdominal pain EXTREMITIES: negative for edema MUSCULOSKELETAL: Paraplegic SKIN: negative for itching or rashes. BEHAVIOR/PSYCH: negative for poor appetite, increased appetite, decreased sleep and poor concentration PHYSICAL EXAM: VITALS: Wt 293 lb (133 kg) BMI 45.89 kg/m CONSTITUTIONAL: awake, alert, cooperative, no apparent distress, and appears stated age EYES: PERRLA, EOMI, no signs of occular infection LUNGS: No increased work of breathing, good air exchange, clear to auscultation bilaterally, no crackles or wheezing CARDIOVASCULAR: Normal apical impulse, regular rate and rhythm, normal S1 and S2, no S3 or S4, and no murmur noted ABDOMEN: Soft, distended yet not tender. Examination of the buttock area reveals a large and extensive sacral decubitus ulcer with exposed sacral bone covered with healthy granulation tissue. The surrounding skin is severely macerated. The area of the sacral decubitus measures at least 17 x 20 cm. Extends from the mid sacral bone to the anal verge. Patient has a diverting colostomy bag on the left hemiabdomen as well as a suprapubic cystostomy catheter. He also has a well-healed incision for hip arthroplasty on the right side. Patient denies any surgery on the left side. EXTREMITIES: no signs of clubbing or cyanosis. MUSCULOSKELETAL: negative for flaccid muscle tone or spastic movements. SKIN: gross examination reveals no signs of rashes, or diaphoresis. NEURO: Cranial nerves II-XII grossly intact. No signs of agitated mood. CBC: Lab Results Component Value Date WBC 8.7 11/04/2023 RBC 3.55 (L) 11/04/2023 HGB 7.3 (L) 11/04/2023 HCT 26.8 (L) 11/04/2023 MCV 75.5 (L) 11/04/2023 MCH 20.6 (L) 11/04/2023 MCHC 27.2 (L) 11/04/2023 RDW 19.6 (H) 11/04/2023 PLT 420 11/04/2023 MPV 9.2 11/04/2023 BMP: Lab Results Component Value Date NA 136 11/04/2023 K 4.1 11/04/2023 CL 101 11/04/2023 CO2 31 (H) 11/04/2023 BUN 13 11/04/2023 CREATININE 0.50 (L) 11/04/2023 CALCIUM 8.4 11/04/2023 GLUCOSE 135 (H) 11/04/2023 Hepatic Function Panel: Lab Results Component Value Date ALKPHOS 92 11/04/2023 ALT 16 11/04/2023 AST 23 11/04/2023 PROT 6.6 11/04/2023 BILITOT 0.3 11/04/2023 Data- Radiology Review: Other than chest x-rays in the system there is no imaging to refer to IMPRESSION/RECOMMENDATIONS: Diagnosis: 1-stage IV sacral decubitus, extensive 2-morbid obesity 3-paraplegia The Patients EMR report has been reviewed We will plan to order MRI with contrast to rule out underlying osteomyelitis. If patient has osteomyelitis will consult ID for antibiotic treatment. Patient needs adequate nutritional support with a balanced and regulated diet to help with weight loss and hands pressure offload Strengthening exercises of the upper extremities Air mattress bed as well as pressure offload every to 2 hours. Roho cushion for any amount of time that the patient is going to set to augment with pressure offload. Nutritional supplementation with high protein intake. Patient's last albumin was 3.1 back in October 2023. For proper healing his albumin needs to exceed at least 3.5 g/dL With optimization of patient's care, pressure offloading and nutritional support as well as strengthening exercise, spontaneous healing with at least shrink the size of the open wound and allow for surgical coverage in the future. I anticipate needing to use the left tensor fascia alesia flap to cover the defect. Donor site will not be closed primarily and will require extensive skin grafting. Without maintaining adequate nutritional support and pressure offloading, recurrence is extremely high. Risks or complications including but not limited to high possibility of recurrence, seroma and hematoma formation, infection and osteomyelitis. Follow Up In 1 month. Photos were obtained Please disregard any typographical errors. This note was partially dictated using voice recognitionsoftware. documented in this [facility]04-30-2024 Consult note Author Darcycaryn Gaitan [facility] September 13, 2023 3:32pm Note Date/Time September 13, 2023 3:3 2pm [facility] Medical Records Department [address] [place] [address] Counseling Note - Pharmacy 09/13/23 1531 MR#: [id number] Acct: [id number] Name: MELISSA ELIAS Rep #:[id number] : 1965 58 From: Darcy Gaitan PCP: Dr. Peter Thayer, DO Status:ADM IN Y Location: [place] [address] Pharmacy [place] Med Reconciliation Pharmacy Service has performed discharge medication reconciliation for this patient. The patient's discharge medication list was reviewed for discrepancies and discrepancies were resolved. Medications at Discharge Home Medications fluticasone propionate 50 mcg/actuation nasal spray,suspension (Flonase Allergy Relief) 1 spray intranasal DAILY shortness of breath 03/03/20 apixaban 5 mg tablet (Eliquis) 5 mg PO DAILY 07/29/23 docusate sodium 100 mg capsule (Colace) 100 mg PO DAILY 07/29/23 gabapentin 100 mg capsule 100 mg PO TID 07/29/23 insulin glargine 100 unit/mL subcutaneous solution (Lantus U-100 Insulin) 20 unit subcut DAILY diabetes mellitus type 2 07/29/23 insulin lispro 100 unit/mL subcutaneous solution 8 unit subcut TID 07/29/23 methocarbamol 500 mg tablet 1,000 mg PO TID PRN cramps 07/29/23 polyethylene glycol 3350 17 gram/dose oral powder (ClearLax) 17 g PO DAILY 07/29/23 pantoprazole 40 mg tablet,delayed release 40 mg PO DAILY 08/31/23 acetaminophen 325 mg tablet 650 mg (2 x 325 mg) PO Q4H PRN PRN Fever, pain 1- 02/22 #0 tabs 09/13/23 aluminum-mag hydroxide-simethicone 400 mg-400 mg-40 mg/5 mL oral susp (Mag-Al Plus Extra Strength) 30 ml PO Q6H PRN PRN Gastric Burning #0 mL 09/13/23 amlodipine 10 mg tablet 10 mg PO DAILY #0 tabs 09/13/23 arginine 7 gram-glutam 7 gram-CaHMB 1.5 sgqk-pzvmg-lx-min oral pwd pkt (Wiliam (with collagen)) 1 packet PO BIDCM #0 ea 09/13/23 benzonatate 100 mg capsule 100 mg PO TID PRN PRN COUGH/CONGESTION #0 caps 09/13/23 carvedilol 12.5 mg tablet 12.5 mg PO BIDCM #0 tabs 09/13/23 cefdinir 300 mg capsule 300 mg PO Q12 #0 caps 09/13/23 diphenhydramine HCl 25 mg capsule (Banophen) 25 mg PO TID PRN PRN Itching #0 caps 09/13/23 guaifenesin 1,200 mg tablet, extended release 12 hr (Mucus Relief ER) 1,200 mg PO BID #0 tabs 09/13/23 insulin lispro 100 unit/mL subcutaneous pen (Humalog KwikPen (U-100) Insulin) See Protocol subcut ACHS #0 mL 09/13/23 melatonin 3 mg tablet 3 mg PO QHS PRN PRN Insomnia #0 tabs 09/13/23 morphine 30 mg tablet,extended release 30 mg PO Q12H 2 days #4 tabs 09/13/23 oxycodone 10 mg tablet 10 mg PO 4X/DAY PRN pain 2 days #8 tabs 09/13/23 peg [id number]-ocqcwxwf 1 %-0.2 %-0.2 % eye drops (Artificial Tears ([id number])) 1 drp EACH EYE BID #0 mL 09/13/23 polysaccharide iron complex 150 mg iron capsule (Ferrex) 150 mg PO BID #0 caps 09/13/23 sennosides 8.6 mg-docusate sodium 50 mg tablet (Stool Softener-Stimulant Laxative) 2 tab PO BID PRN PRN Constipation #0 tabs 09/13/23 09/13/23 1532 <Electronically signed by Darcy Gaitan> Date _ Darcy Gaitan Cosigner Signature (if applicable): Date CC: ~ Signed [facility] Work Phone: 1(909) 916-613604-30-2024 Discharge summary Author Palmira Johnson [facility] September 13, 2023 2:21pm Note Date/Time September 13, 2023 2:2 1pm [facility] Medical Records Department [address] [place] [address] Discharge Summary 09/13/23 1419 MR#: [id number] Acct: [id number] Name: MELISSA ELIAS Rep #:[id number] : 1965 58 From: Palmira Johnson MD PCP: Dr. Peter Thayer, DO Status:ADM IN Location: [place] [id number] Providers Date of Admission: 08/31/23 Primary Care Physician: Dr. Peter Thayer, DO Consultations 08/31/23 20:17 Consult: Onc/Wound/surgical processor Routine Comment: Reason for Consult:: large stage 4 pressure injury on coccyx 09/02/23 12:07 Consult: Urology Routine Consulting Provider: Latha Rosado Reason for Consult: urinary retention EMERGENT Consult: Yes MD Notified: Yes Date Notified: 09/02/23 Time Notified: 12:07 Method of Notification: Verbal Reason For Visit: OBSTRUCTIVE UROPATHY, HEMATURIA Diagnosis Discharge Diagnosis (1) Blood loss anemia: Status: Acute Code(s): D50.0 - Iron deficiency anemia secondary to blood loss (chronic) (2) Acute urinary retention: Status: Acute Code(s): R33.8 - Other retention of urine Plan Patient is a 58-year-old gentleman with history of L1 injury with subsequent paraplegia who has an indwelling Bartlett catheter was sent to the ED with hematuria as well as urinary retention 1. Acute urinary retention ? Secondary to hematuria. CT of the abdomen and pelvis obtained in the ED demonstrated distended urinary bladder with side density material along its dependent portion suggestive either clot versus a mass.. Continuous bladder irrigation initiated in the ED [facility]. Patient however had to be kept on the MedSurg floor pending transfer ? 09/02/2023. Patient still has dylan hematuria. Will continue with CBI pendingtransfer to tertiary care center. ? 09/03/2023;Patient underwent cystoscopy with evacuation of clot and cystogram by Dr. Rosado the day prior after patient developed acute urinary retention dueto clotting of his Bartlett catheter. We did obtain a bed for patient to be transferred to [facility] however the patient elected to stay. Plan is for patient to undergo repeat cystoscopy and clot evaluation on 09/04/2023 -09/04/2023; Patient underwent repeat Cystoscopy, clot evacuation, fulguration of bleeding by Dr. Rosado this morning. Readmitted to PCU with continuation ofCBI ? 09/12/2023; Bartlett catheter remains in place plan is for patient to follow-up with Dr. Persaud as outpatient 2. Anemia Secondary to acute blood loss anemia as a result of patient hematuria. Transfused 1 unit PRBC hemoglobin still remains low at 5.9 and additional unit has been ordered ? 09/02/2023. Patient has received 3 unit PRBC transfusion following his admission hemoglobin up to 7.2 ? 09/03/2023; hemoglobin still down at 7.4. Patient has received a total of 4 unit PRBC since admission ? 09/13/2023 hemoglobin down to 7.0 and order was given for patient to be transfused 1 unit 3. Acute complicated lower urinary tract infection with Proteus and Klebsiella ? Patient managed with antibiotic therapy given his persistent fever and leukocytosis 4. Chronic constipation I did continue patient bowel regimen 5. Chronic pain syndrome ? Patient home medication regimen including oxycodone morphine methocarbamol as well as gabapentin continue 6. History of VTE ? Patient is on apixaban held given patient active bleeding?hematuria 7. Class III obesity with BMI of 44.6 ? Complicating care weight loss encouraged 8. Diabetes mellitus type II -patient's oral hypoglycemics held. Placed on long acting insulin, Accu-Cheks a.c. and at bedtime and covered with sliding scale insulin 9. Obstructive sleep apnea ? Patient is on PAP therapy at night consistent use encouraged 10.. Unstageable sacral decubitus ulcer ? Present on admission consult placed to wound care nurse 11. 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 Supportive care 12. DVT prophylaxis ? Patient was on apixaban being held given his active hematuria Time spent in the patient's overall evaluation,decision-making process, review of diagnostic data, adjustment of management, discussion with other providers, nursing nursing and ancillary staff involved in patient's care documentation, 35minutes Medications at Discharge Home Medications fluticasone propionate 50 mcg/actuation nasal spray,suspension (Flonase Allergy Relief) 1 spray intranasal DAILY shortness of breath 03/03/20 apixaban 5 mg tablet (Eliquis) 5 mg PO DAILY 07/29/23 docusate sodium 100 mg capsule (Colace) 100 mg PO DAILY 07/29/23 gabapentin 100 mg capsule 100 mg PO TID 07/29/23 insulin glargine 100 unit/mL subcutaneous solution (Lantus U-100 Insulin) 20 unit subcut DAILY diabetes mellitus type 2 07/29/23 insulin lispro 100 unit/mL subcutaneous solution 8 unit subcut TID 07/29/23 methocarbamol 500 mg tablet 1,000 mg PO TID PRN cramps 07/29/23 polyethylene glycol 3350 17 gram/dose oral powder (ClearLax) 17 g PO DAILY 07/29/23 pantoprazole 40 mg tablet,delayed release 40 mg PO DAILY 08/31/23 acetaminophen 325 mg tablet 650 mg (2 x 325 mg) PO Q4H PRN PRN Fever, pain 1- 02/22 #0 tabs 09/13/23 aluminum-mag hydroxide-simethicone 400 mg-400 mg-40 mg/5 mL oral susp (Mag-Al Plus Extra Strength) 30 ml PO Q6H PRN PRN Gastric Burning #0 mL 09/13/23 amlodipine 10 mg tablet 10 mg PO DAILY #0 tabs 09/13/23 arginine 7 gram-glutam 7 gram-CaHMB 1.5 yket-qgknu-bv-min oral pwd pkt (Wiliam (with collagen)) 1 packet PO BIDCM #0 ea 09/13/23 benzonatate 100 mg capsule 100 mg PO TID PRN PRN COUGH/CONGESTION #0 caps 09/13/23 carvedilol 12.5 mg tablet 12.5 mg PO BIDCM #0 tabs 09/13/23 cefdinir 300 mg capsule 300 mg PO Q12 #0 caps 09/13/23 diphenhydramine HCl 25 mg capsule (Banophen) 25 mg PO TID PRN PRN Itching #0 caps 09/13/23 guaifenesin 1,200 mg tablet, extended release 12 hr (Mucus Relief ER) 1,200 mg PO BID #0 tabs 09/13/23 insulin lispro 100 unit/mL subcutaneous pen (Humalog KwikPen (U-100) Insulin) See Protocol subcut ACHS #0 mL 09/13/23 melatonin 3 mg tablet 3 mg PO QHS PRN PRN Insomnia #0 tabs 09/13/23 morphine 30 mg tablet,extended release 30 mg PO Q12H 2 days #4 tabs 09/13/23 oxycodone 10 mg tablet 10 mg PO 4X/DAY PRN pain 2 days #8 tabs 09/13/23 peg 123-gucoiuacntra-dyhvpehg 1 %-0.2 %-0.2 % eye drops (Artificial Tears ([id number]-emeawyoz)) 1 drp EACH EYE BID #0 mL 09/13/23 polysaccharide iron complex 150 mg iron capsule (Ferrex) 150 mg PO BID #0 caps 09/13/23 sennosides 8.6 mg-docusate sodium 50 mg tablet (Stool Softener-Stimulant Laxative) 2 tab PO BID PRN PRN Constipation #0 tabs 09/13/23 Physical Exam Narrative GENERAL: Cooperative HEENT: Atraumatic; normocephalic EYES; Anicteric, Normal Conjunctiva NECK; supple, normal thyroid, RESPIRATORY: Diminished to auscultation CARDIOVASCULAR: Regular S1 S2, GI: soft, normoactive bowel sounds, : Bartlett catheter in place with hematuria EXTREMITIES: edema, no clubbing, NEURO: Awake; paraplegic SKIN: Bilateral sacral decubitus PSYCH; Flat affect Weight / BMI Weight Weight: 138.2 kg Body Mass Index (BMI) 47.8 ABG / Lab / Microbiology Data 09/13/23 03:01 09/13/23 03:01 Laboratory: Laboratory Results - last 24 hr 09/12/23 16:03: POC Glucose 204 H 09/12/23 21:32: POC Glucose 178 H 09/13/23 03:01: WBC 11.6 H, RBC 3.16 L, Hgb 7.0 L, Hct 24.5 L, MCV 77.5 L, MCH 22.2 L, MCHC 28.6 L, RDW Std Deviation 58.8 H, RDW Coeff of Mary 21.1 H, Plt Count 442, MPV 9.0, Immature Gran % (Auto) 1.800 H, Neut % (Auto) 57.9, Lymph % (Auto) 23.7, Hayes % (Auto) 9.2, Eos % (Auto) 6.9 H, Baso % (Auto) 0.5, Absolute Neuts (auto) 6.7, Absolute Lymphs (auto) 2.75, Nucleated RBC % 0, Sodium 136, Potassium 4.2, Chloride 101, Carbon Dioxide 29.0, Anion Gap 6, BUN 14, Creatinine 0.52 L, Estim Creat Clear Calc 210.45, Est GFR (MDRD) Af Amer 211, Est GFR (MDRD) Non-Af 174, BUN/Creatinine Ratio 26.9 H, Glucose 223 H, Calcium 8.4 L, Phosphorus 3.5, Magnesium 1.8 09/13/23 08:11: POC Glucose 149 H 09/13/23 09:00: Blood Type A POSITIVE, Antibody Screen POSITIVE, Antibody Identification ANTI-E, Crossmatch See Detail 09/13/23 11:12: POC Glucose 124 H Microbiology: Microbiology 09/13/23 11:41 Nasal Secretion SARS-CoV-2 Antigen (Rapid) - Final 09/09/23 16:07 Urine Catheter - Catheter Urine Culture - Final Klebsiella pneumoniae sp pneum Proteus mirabilis 09/10/23 03:35 Stool Stool Occult Blood (OCTAVIO) - Final 08/31/23 12:44 Urine Catheter - Catheter Urine Culture - Final Culture exhibits no growth. D/C Instructions Discharge Diet: 1800 Calorie Control Diet Discharge Activity: Return to Normal Activity Call your doctor if you observe: Fever of 101 or Higher, Shortness of breath, Fainting spells and Chest pain Meaningful Use Info Meaningful Use Meaningful Use Diagnoses (Choose all that apply): None applicable Ischemic Stroke Statin Dosing Therapy Reference: STATIN DOSE THERAPY REFERENCE: * Patients > 75 years receive moderate or high dose statin therapy. * Patients 75 years or YOUNGER should receive HIGH intensity statin dose unless contraindicated. You will be required to document reason for non-treatment if statin daily dose does not meet guidelines. HIGH DOSE STATIN THERAPY DAILY Atorvastatin > than or = to 40 mg Rosuvastatin > than or = to 20 mg Amlodipine + Atorvastatin > than or = to 2.5/40 mg Ezetimibe + Simvastatin 10/80 mg Simvastatin 80mg Discharge Plan Admission Admit Date/Time: 08/31/23 18:55 Primary Reason for Your Visit: Urinary retention/blood in your urine Attending Provider: Palmira Johnson Primary Care Provider: Peter Thayer Consulting Providers: Terri Nino; Latha Rosado; Palmira Johnson; Vanessa Matias Discharge Orders/Prescriptions Prescriptions: New polysaccharide iron complex [Ferrex 150] 150 mg iron Capsule 150 mg PO BID Qty: 0 0RF sennosides-docusate sodium [Stool Softener-Stimulant Laxat] 8.6-50 mg Tablet 2 tab PO BID PRN PRN (Reason: Constipation) Qty: 0 0RF melatonin 3 mg Tablet 3 mg PO QHS PRN PRN (Reason: Insomnia) Qty: 0 0RF alum-mag hydroxide-simeth [Mag-Al Plus Extra Strength] 400-400-40 mg/5 mL Suspension 30 ml PO Q6H PRN PRN (Reason: Gastric Burning) Qty: 0 0RF insulin lispro [Humalog KwikPen Insulin] 100 unit/mL Insulin Pen See Protocol subcut ACHS Qty: 0 0RF Protocol: 3. Sliding Scale Insulin Med Dosing Condition: 150-189 mg/dl = 1 unit Condition: 190-229 mg/dl = 2 units Condition: 230-269 mg/dl = 3 units Condition: 270-309 mg/dl = 4 units Condition: 310-349 mg/dl = 5 units Condition: 350-399 mg/dl = 6 units Condition: 400-449 mg/dl = 7 units Condition: Greater than 449 call physician Protocol Text: - Use for Total Daily Dose of Insulin 37-55 units - Obsese, infected, or steroid patients MEDIUM DOSING ALGORITHIM Artificial Tears(ox-ibzg-wgtt) 1-0.2-0.2 % Drops 1 drp EACH EYE BID Qty: 0 0RF guaifenesin [Mucus Relief ER] 1,200 mg Tablet Extended Release 12hr 1,200 mg PO BID Qty: 0 0RF Wiliam (with collagen) 7-7-1.5 gram Powder In Packet 1 packet PO BIDCM Qty: 0 0RF acetaminophen 325 mg Tablet 650 mg PO Q4H PRN PRN (Reason: Fever, pain 1-02/22) Qty: 0 0RF carvedilol 12.5 mg Tablet 12.5 mg PO BIDCM Qty: 0 0RF amlodipine 10 mg Tablet 10 mg PO DAILY Qty: 0 0RF benzonatate 100 mg Capsule 100 mg PO TID PRN PRN (Reason: COUGH/CONGESTION) Qty: 0 0RF diphenhydramine HCl [Banophen] 25 mg Capsule 25 mg PO TID PRN PRN (Reason: Itching) Qty: 0 0RF cefdinir 300 mg Capsule 300 mg PO Q12 Qty: 0 0RF Continued fluticasone propionate [Flonase Allergy Relief] 50 mcg/actuation spray,suspension 1 spray INTRANASAL DAILY Patient Comments: takes in once in awhile Rx Instructions: administer into each nostril pantoprazole 40 mg tablet,delayed release (DR/EC) 40 mg PO DAILY morphine 30 mg tablet extended release 30 mg PO Q12H 2 Days Qty: 4 0RF oxycodone 10 mg tablet 10 mg PO 4X/DAY PRN (Reason: pain) 2 Days Qty: 8 0RF methocarbamol 500 mg tablet 1,000 mg PO TID PRN (Reason: cramps) gabapentin 100 mg capsule 100 mg PO TID Eliquis 5 mg tablet 5 mg PO DAILY Hold Instructions: Resume on 09/16/23. insulin glargine [Lantus U-100 Insulin] 100 unit/mL solution 20 unit subcut DAILY insulin lispro 100 unit/mL solution 8 unit subcut TID Patient Comments: 8 units in the morning, 8 at noon and 8 units in the evening docusate sodium [Colace] 100 mg capsule 100 mg PO DAILY polyethylene glycol 3350 [ClearLax] 17 gram/dose powder 17 g PO DAILY Referrals / Follow Up: Artis Persaud MD [Med Staff - Active Staff] - Within 1 Week Peter Thayer DO [Primary Care Provider] - Within 2 Weeks Disposition Disposition (needs filled in before D/C Order can be placed): [facility] Facility Charges/Coding Visit Charges Inpatient E&M: 58305 Disch Hosp >30min 09/13/23 1421 <Electronically signed by Palmira Johnson MD> Cosigner Signature (if applicable): CC: Dr. Palmira Johnson MD; Dr. Peter Thayer DO~ Signed [facility] Work Phone: 1(843) 715-891804-30-2024 Discharge summary Author Palmira Lorenzmyranda [facility] September 13, 2023 2:19pm Note Date/Time September 13, 2023 2:1 9pm [facility] Medical Records Department [address] [place] [id number] Transfer to [facility] MR#: [id number] Acct: [id number] Name: MELISSA ELIAS Rep #:[id number] : 1965 58 From: Palmira Johnson MD PCP: Dr. Peter Thayer DO Status:ADM IN Certification of patient admission REQUIRED AT TIME OF ADMISSION. I CERTIFY THAT POST-HOSPITAL ECF SERVICES ARE REQUIRED TO BE GIVEN ON AN IN-PATIENT BASIS BECAUSE OF THE ABOVE NAMED PATIENT'S NEED FOR [facility] CARE ON A CONTINUING BASIS FOR THE CONDITION(S) FOR WHICH HE/SHE WAS RECEIVING IN-PATIENT HOSPITAL SERVICES PRIOR TO HIS/HER TRANSFER TO [facility]. 09/13/23 1419<Electronically signed by Palmira Johnson MD> Diet Diet Order/Speech Therapy: 09/04/23 11:35 Diet: Consistent Carb - Calorie Controlled Dietary Modifications:: Cardiac / Heart Healthy Is pt able to select menu?: Yes How many daily calories?: 2000 calorie Wound(s) coccyx: Wound Type: Pressure Injury sacrum: Wound Type: Pressure Injury Dressing Change: Dakins moistened gauze Therapies Physical Therapy: Eval and Treat Occupational Therapy: Eval and Treat Problem/Diagnosis (1) Blood loss anemia: Status: Acute Code(s): D50.0 - Iron deficiency anemia secondary to blood loss (chronic) (2) Acute urinary retention: Status: Acute Code(s): R33.8 - Other retention of urine Plan Patient is a 58-year-old gentleman with history of L1 injury with subsequent paraplegia who has an indwelling Bartlett catheter was sent to the ED with hematuria as well as urinary retention 1. Acute urinary retention ? Secondary to hematuria. CT of the abdomen and pelvis obtained in the ED demonstrated distended urinary bladder with side density material along its dependent portion suggestive either clot versus a mass.. Continuous bladder irrigation initiated in the ED [facility]. Patient however had to be kept on the MedSurg floor pending transfer ? 09/02/2023. Patient still has dylan hematuria. Will continue with CBI pendingtransfer to tertiary care center. ? 09/03/2023;Patient underwent cystoscopy with evacuation of clot and cystogram by Dr. Rosado the day prior after patient developed acute urinary retention dueto clotting of his Bartlett catheter. We did obtain a bed for patient to be transferred to [facility] however the patient elected to stay. Plan is for patient to undergo repeat cystoscopy and clot evaluation on 09/04/2023 -09/04/2023; Patient underwent repeat Cystoscopy, clot evacuation, fulguration of bleeding by Dr. Rosado this morning. Readmitted to PCU with continuation ofCBI ? 09/12/2023; Bartlett catheter remains in place plan is for patient to follow-up with Dr. Persaud as outpatient 2. Anemia Secondary to acute blood loss anemia as a result of patient hematuria. Transfused 1 unit PRBC hemoglobin still remains low at 5.9 and additional unit has been ordered ? 09/02/2023. Patient has received 3 unit PRBC transfusion following his admission hemoglobin up to 7.2 ? 09/03/2023; hemoglobin still down at 7.4. Patient has received a total of 4 unit PRBC since admission ? 09/13/2023 hemoglobin down to 7.0 and order was given for patient to be transfused 1 unit 3. Acute complicated lower urinary tract infection with Proteus and Klebsiella ? Patient managed with antibiotic therapy given his persistent fever and leukocytosis 4. Chronic constipation I did continue patient bowel regimen 5. Chronic pain syndrome ? Patient home medication regimen including oxycodone morphine methocarbamol as well as gabapentin continue 6. History of VTE ? Patient is on apixaban held given patient active bleeding?hematuria 7. Class III obesity with BMI of 44.6 ? Complicating care weight loss encouraged 8. Diabetes mellitus type II -patient's oral hypoglycemics held. Placed on long acting insulin, Accu-Cheks a.c. and at bedtime and covered with sliding scale insulin 9. Obstructive sleep apnea ? Patient is on PAP therapy at night consistent use encouraged 10.. Unstageable sacral decubitus ulcer ? Present on admission consult placed to wound care nurse 11. 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 Supportive care 12. DVT prophylaxis ? Patient was on apixaban being held given his active hematuria Time spent in the patient's overall evaluation,decision-making process, review of diagnostic data, adjustment of management, discussion with other providers, nursing nursing and ancillary staff involved in patient's care documentation, 35minutes Allergies/Procedures Done in Hospital Allergies No Known Allergies Allergy (Verified 08/31/23 11:11) Type of Care/Length of Stay Estimated LOS: More Than 30 Days Type of Care Needed: Intermediate Rehab Potential: Fair Prognosis: Fair Additional Orders/Day of Discharge Day of Discharge: 09/13/23 Dietary and Speech Recommendations Dietitian Recommendations/Changes: 2000 calorie, consistent carbohydrate/cardiacdiet Will d/c 120mL Glucerna 4x daily with medpass Will continue Wiliam BID to promote wound healing. Discharge Plan Admission Admit Date/Time: 08/31/23 18:55 Primary Reason for Your Visit: Urinary retention/blood in your urine Attending Provider: Palmira Johnson Primary Care Provider: Malys,Peter Consulting Providers: Terri Nino; Latha Rosado; Palmira Johnson; Vanessa Matias Discharge Orders/Prescriptions Prescriptions: New polysaccharide iron complex [Ferrex 150] 150 mg iron Capsule 150 mg PO BID Qty: 0 0RF sennosides-docusate sodium [Stool Softener-Stimulant Laxat] 8.6-50 mg Tablet 2 tab PO BID PRN PRN (Reason: Constipation) Qty: 0 0RF melatonin 3 mg Tablet 3 mg PO QHS PRN PRN (Reason: Insomnia) Qty: 0 0RF alum-mag hydroxide-simeth [Mag-Al Plus Extra Strength] 400-400-40 mg/5 mL Suspension 30 ml PO Q6H PRN PRN (Reason: Gastric Burning) Qty: 0 0RF insulin lispro [Humalog KwikPen Insulin] 100 unit/mL Insulin Pen See Protocol subcut ACHS Qty: 0 0RF Protocol: 3. Sliding Scale Insulin Med Dosing Condition: 150-189 mg/dl = 1 unit Condition: 190-229 mg/dl = 2 units Condition: 230-269 mg/dl = 3 units Condition: 270-309 mg/dl = 4 units Condition: 310-349 mg/dl = 5 units Condition: 350-399 mg/dl = 6 units Condition: 400-449 mg/dl = 7 units Condition: Greater than 449 call physician Protocol Text: - Use for Total Daily Dose of Insulin 37-55 units - Obsese, infected, or steroid patients MEDIUM DOSING ALGORITHIM Artificial Tears(uh-ckov-fakp) 1-0.2-0.2 % Drops 1 drp EACH EYE BID Qty: 0 0RF guaifenesin [Mucus Relief ER] 1,200 mg Tablet Extended Release 12hr 1,200 mg PO BID Qty: 0 0RF Wiliam (with collagen) 7-7-1.5 gram Powder In Packet 1 packet PO BIDCM Qty: 0 0RF acetaminophen 325 mg Tablet 650 mg PO Q4H PRN PRN (Reason: Fever, pain 1-02/22) Qty: 0 0RF carvedilol 12.5 mg Tablet 12.5 mg PO BIDCM Qty: 0 0RF amlodipine 10 mg Tablet 10 mg PO DAILY Qty: 0 0RF benzonatate 100 mg Capsule 100 mg PO TID PRN PRN (Reason: COUGH/CONGESTION) Qty: 0 0RF diphenhydramine HCl [Banophen] 25 mg Capsule 25 mg PO TID PRN PRN (Reason: Itching) Qty: 0 0RF cefdinir 300 mg Capsule 300 mg PO Q12 Qty: 0 0RF Continued fluticasone propionate [Flonase Allergy Relief] 50 mcg/actuation spray,suspension 1 spray INTRANASAL DAILY Patient Comments: takes in once in awhile Rx Instructions: administer into each nostril pantoprazole 40 mg tablet,delayed release (DR/EC) 40 mg PO DAILY morphine 30 mg tablet extended release 30 mg PO Q12H 2 Days Qty: 4 0RF oxycodone 10 mg tablet 10 mg PO 4X/DAY PRN (Reason: pain) 2 Days Qty: 8 0RF methocarbamol 500 mg tablet 1,000 mg PO TID PRN (Reason: cramps) gabapentin 100 mg capsule 100 mg PO TID Eliquis 5 mg tablet 5 mg PO DAILY Hold Instructions: Resume on 09/16/23. insulin glargine [Lantus U-100 Insulin] 100 unit/mL solution 20 unit subcut DAILY insulin lispro 100 unit/mL solution 8 unit subcut TID Patient Comments: 8 units in the morning, 8 at noon and 8 units in the evening docusate sodium [Colace] 100 mg capsule 100 mg PO DAILY polyethylene glycol 3350 [ClearLax] 17 gram/dose powder 17 g PO DAILY Referrals / Follow Up: Artis Persaud MD [Med Staff - Active Staff] - Within 1 Week Peter Thayer DO [Primary Care Provider] - Within 2 Weeks Disposition Disposition (needs filled in before D/C Order can be placed): [facility] 09/13/23 1419 <Electronically signed by Palmira Johnson MD> Cosigner Signature (if applicable): CC: Dr. Terri Nino MD; Dr. Palmira Johnson MD; Dr. Latha Rosado MD; Dr. Vanessa Matias DO; Dr. Peter Thayer DO ~ [facility] Work Phone: [phone]) [phone] Progress note Author Palmira Johnson [facility] September 13, 2023 9:39am Note Date/Time September 13, 2023 8:0 8am [facility] Medical Records Department [address] [place] [address] Progress Note - Hospitalist 09/13/23 0802 MR#: [id number] Acct: [id number] Name: MELISSA ELIAS Rep #:[id number] : 1965 58 From: Palmira Johnson MD PCP: Dr. Peter Thayer, DO Status:ADM IN Location: [place] [address] Reason for Visit Reason for Visit: Diagnoses Iron deficiency anemia secondary to blood loss (chronic) (08/31/23) Gross hematuria (08/31/23) Other retention of urine (08/31/23) Presence of other specified devices (08/31/23) Subjective Subjective Patient hemoglobin down to 7.0. Awaiting transfer to [facility]. An order was given for patient to be transfused 1 unit PRBC Objective Data Objective Data Vital Signs: Vital Signs Temp Pulse Resp BP Pulse Ox O2 Del Method O2 Flow Rate 97.2 F L 98 18 139/64 H 95 Bi-pap 2 09/13/23 02:45 09/13/23 02:45 09/13/23 02:45 09/13/23 02:45 09/13/23 05:05 09/13/23 05:05 09/13/23 05:05 Oxygen Flow Rate (L/min) 2 Oxygen Delivery Method Bi-pap Weight: 138.2 kg Body Mass Index (BMI) 47.8 Intake & Output: Intake and Output for Last 24 Hours 09/11/23 09/12/23 09/13/23 23:59 23:59 23:59 Intake Total 1070 / 1070 1000 / 1000 Output Total 3450 / 3450 2049 / 2049 1100 / 1100 Balance -2380 / -2380 -1050 / -1050 -1100 / -1100 Lab / Micro Data 09/13/23 03:01 09/13/23 03:01 Labs: Laboratory Results - last 24 hr 09/12/23 07:52: POC Glucose 157 H 09/12/23 11:07: POC Glucose 222 H 09/12/23 16:03: POC Glucose 204 H 09/12/23 21:32: POC Glucose 178 H 09/13/23 03:01: WBC 11.6 H, RBC 3.16 L, Hgb 7.0 L, Hct 24.5 L, MCV 77.5 L, MCH 22.2 L, MCHC 28.6 L, RDW Std Deviation 58.8 H, RDW Coeff of Mary 21.1 H, Plt Count 442, MPV 9.0, Immature Gran % (Auto) 1.800 H, Neut % (Auto) 57.9, Lymph % (Auto) 23.7, Hayes % (Auto) 9.2, Eos % (Auto) 6.9 H, Baso % (Auto) 0.5, Absolute Neuts (auto) 6.7, Absolute Lymphs (auto) 2.75, Nucleated RBC % 0, Sodium 136, Potassium 4.2, Chloride 101, Carbon Dioxide 29.0, Anion Gap 6, BUN 14, Creatinine 0.52 L, Estim Creat Clear Calc 210.45, Est GFR (MDRD) Af Amer 211, Est GFR (MDRD) Non-Af 174, BUN/Creatinine Ratio 26.9 H, Glucose 223 H, Calcium 8.4 L, Phosphorus 3.5, Magnesium 1.8 Micro: Microbiology 09/09/23 16:07 Urine Catheter - Catheter Urine Culture - Final Klebsiella pneumoniae sp pneum Proteus mirabilis 09/10/23 03:35 Stool Stool Occult Blood (OCTAVIO) - Final 08/31/23 12:44 Urine Catheter - Catheter Urine Culture - Final Culture exhibits no growth. Physical Exam Narrative GENERAL: Cooperative HEENT: Atraumatic; normocephalic EYES; Anicteric, Normal Conjunctiva NECK; supple, normal thyroid, RESPIRATORY: Diminished to auscultation CARDIOVASCULAR: Regular S1 S2, GI: soft, normoactive bowel sounds, : Bartlett catheter in place with hematuria EXTREMITIES: edema, no clubbing, NEURO: Awake; paraplegic SKIN: Bilateral sacral decubitus PSYCH; Flat affect Assessment & Plan Assessment/Plan (1) Blood loss anemia: (2) Acute urinary retention: PLAN: Plan Patient is a 58-year-old gentleman with history of L1 injury with subsequent paraplegia who has an indwelling Bartlett catheter was sent to the ED with hematuria as well as urinary retention 1. Acute urinary retention ? Secondary to hematuria. CT of the abdomen and pelvis obtained in the ED demonstrated distended urinary bladder with side density material along its dependent portion suggestive either clot versus a mass.. Continuous bladder irrigation initiated in the ED [facility]. Patient however had to be kept on the MedSurg floor pending transfer ? 09/02/2023. Patient still has dylan hematuria. Will continue with CBI pendingtransfer to tertiary care center. ? 09/03/2023;Patient underwent cystoscopy with evacuation of clot and cystogram by Dr. Rosado the day prior after patient developed acute urinary retention dueto clotting of his Bartlett catheter. We did obtain a bed for patient to be transferred to [facility] however the patient elected to stay. Plan is for patient to undergo repeat cystoscopy and clot evaluation on 09/04/2023 -09/04/2023; Patient underwent repeat Cystoscopy, clot evacuation, fulguration of bleeding by Dr. Rosado this morning. Readmitted to PCU with continuation ofCBI ? 09/12/2023; Bartlett catheter remains in place plan is for patient to follow-up with Dr. Persaud as outpatient 2. Anemia Secondary to acute blood loss anemia as a result of patient hematuria. Transfused 1 unit PRBC hemoglobin still remains low at 5.9 and additional unit has been ordered ? 09/02/2023. Patient has received 3 unit PRBC transfusion following his admission hemoglobin up to 7.2 ? 09/03/2023; hemoglobin still down at 7.4. Patient has received a total of 4 unit PRBC since admission ? 09/13/2023 hemoglobin down to 7.0 and order was given for patient to be transfused 1 unit 3. Acute complicated lower urinary tract infection with Proteus and Klebsiella ? Patient managed with antibiotic therapy given his persistent fever and leukocytosis 4. Chronic constipation I did continue patient bowel regimen 5. Chronic pain syndrome ? Patient home medication regimen including oxycodone morphine methocarbamol as well as gabapentin continue 6. History of VTE ? Patient is on apixaban held given patient active bleeding?hematuria 7. Class III obesity with BMI of 44.6 ? Complicating care weight loss encouraged 8. Diabetes mellitus type II -patient's oral hypoglycemics held. Placed on long acting insulin, Accu-Cheks a.c. and at bedtime and covered with sliding scale insulin 9. Obstructive sleep apnea ? Patient is on PAP therapy at night consistent use encouraged 10.. Unstageable sacral decubitus ulcer ? Present on admission consult placed to wound care nurse 11. 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 Supportive care 12. DVT prophylaxis ? Patient was on apixaban being held given his active hematuria Time spent in the patient's overall evaluation,decision-making process, review of diagnostic data, adjustment of management, discussion with other providers, nursing nursing and ancillary staff involved in patient's care documentation, 35minutes Charges/Coding Visit Charges Inpatient E&M: 01793 Subs Hosp L2 09/13/23 0939 <Electronically signed by Palmira Johnson MD> Cosigner Signature (if applicable): CC: ~ Signed [facility] Work Phone: [phone]) 854-118204-29-2024 Progress note Author Palmira Johnson [facility] September 12, 2023 11:52am Note Date/Time September 12, 2023 11: 52am [facility] Medical Records Department [address] [place] [address] Progress Note - Hospitalist 09/12/23 1149 MR#: [id number] Acct: [id number] Name: MELISSA ELIAS Rep #:[id number] : 1965 58 From: Palmira Johnson MD PCP: Dr. Peter Thayer, DO Status:ADM IN Location: [place] [address] Reason for Visit Reason for Visit: Diagnoses Iron deficiency anemia secondary to blood loss (chronic) (08/31/23) Gross hematuria (08/31/23) Other retention of urine (08/31/23) Presence of other specified devices (08/31/23) Subjective Subjective Patient seen had a relatively uneventful night. Awaiting transfer to intermediate facility pending insurance approval Objective Data Objective Data Vital Signs: Vital Signs Temp Pulse Resp BP Pulse Ox O2 Del Method O2 Flow Rate 97.8 F 90 18 135/64 H 100 CPAP 2 09/12/23 07:54 09/12/23 07:54 09/12/23 07:54 09/12/23 07:54 09/12/23 07:54 09/12/23 07:54 09/12/23 07:54 Oxygen Flow Rate (L/min) 2 Oxygen Delivery Method CPAP Weight: 138.8 kg Body Mass Index (BMI) 48.0 Intake & Output: Intake and Output for Last 24 Hours 09/10/23 09/11/23 09/12/23 23:59 23:59 23:59 Intake Total 2395 / 2395 1070 / 1070 500 / 500 Output Total 2700 / 2700 3450 / 3450 1250 / 1250 Balance -305 / -305 -2380 / -2380 -750 / -750 Lab / Micro Data 09/11/23 06:00 09/10/23 04:10 Labs: Laboratory Results - last 24 hr 09/11/23 16:46: POC Glucose 184 H 09/11/23 21:32: POC Glucose 212 H 09/12/23 07:52: POC Glucose 157 H 09/12/23 11:07: POC Glucose 222 H Micro: Microbiology 09/09/23 16:07 Urine Catheter - Catheter Urine Culture - Final Klebsiella pneumoniae sp pneum Proteus mirabilis 09/10/23 03:35 Stool Stool Occult Blood (OCTAVIO) - Final 08/31/23 12:44 Urine Catheter - Catheter Urine Culture - Final Culture exhibits no growth. Physical Exam Narrative GENERAL: Cooperative HEENT: Atraumatic; normocephalic EYES; Anicteric, Normal Conjunctiva NECK; supple, normal thyroid, RESPIRATORY: Diminished to auscultation CARDIOVASCULAR: Regular S1 S2, GI: soft, normoactive bowel sounds, : Bartlett catheter in place with hematuria EXTREMITIES: edema, no clubbing, NEURO: Awake; paraplegic SKIN: Bilateral sacral decubitus PSYCH; Flat affect Assessment & Plan Assessment/Plan (1) Blood loss anemia: (2) Acute urinary retention: PLAN: Plan Patient is a 58-year-old gentleman with history of L1 injury with subsequent paraplegia who has an indwelling Bartlett catheter was sent to the ED with hematuria as well as urinary retention 1. Acute urinary retention ? Secondary to hematuria. CT of the abdomen and pelvis obtained in the ED demonstrated distended urinary bladder with side density material along its dependent portion suggestive either clot versus a mass.. Continuous bladder irrigation initiated in the ED [facility]. Patient however had to be kept on the MedSurg floor pending transfer ? 09/02/2023. Patient still has dylan hematuria. Will continue with CBI pendingtransfer to tertiary care center. ? 09/03/2023;Patient underwent cystoscopy with evacuation of clot and cystogram by Dr. Rosado the day prior after patient developed acute urinary retention dueto clotting of his Bartlett catheter. We did obtain a bed for patient to be transferred to [facility] however the patient elected to stay. Plan is for patient to undergo repeat cystoscopy and clot evaluation on 09/04/2023 -09/04/2023; Patient underwent repeat Cystoscopy, clot evacuation, fulguration of bleeding by Dr. Rosado this morning. Readmitted to PCU with continuation ofCBI ? 09/12/2023; Bartlett catheter remains in place plan is for patient to follow-up with Dr. Etienne as outpatient 2. Anemia Secondary to acute blood loss anemia as a result of patient hematuria. Transfused 1 unit PRBC hemoglobin still remains low at 5.9 and additional unit has been ordered ? 09/02/2023. Patient has received 3 unit PRBC transfusion following his admission hemoglobin up to 7.2 ? 09/03/2023; hemoglobin still down at 7.4. Patient has received a total of 4 unit PRBC since admission 3. Acute complicated lower urinary tract infection with Proteus and Klebsiella ? Patient managed with antibiotic therapy given his persistent fever and leukocytosis 4. Chronic constipation I did continue patient bowel regimen 5. Chronic pain syndrome ? Patient home medication regimen including oxycodone morphine methocarbamol as well as gabapentin continue 6. History of VTE ? Patient is on apixaban held given patient active bleeding?hematuria 7. Class III obesity with BMI of 44.6 ? Complicating care weight loss encouraged 8. Diabetes mellitus type II -patient's oral hypoglycemics held. Placed on long acting insulin, Accu-Cheks a.c. and at bedtime and covered with sliding scale insulin 9. Obstructive sleep apnea ? Patient is on PAP therapy at night consistent use encouraged 10.. Unstageable sacral decubitus ulcer ? Present on admission consult placed to wound care nurse 11. 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 Supportive care 12. DVT prophylaxis ? Patient was on apixaban being held given his active hematuria Time spent in the patient's overall evaluation,decision-making process, review of diagnostic data, adjustment of management, discussion with other providers, nursing nursing and ancillary staff involved in patient's care documentation, 35minutes Charges/Coding Visit Charges Inpatient E&M: 53011 Subs Hosp L2 09/12/23 1152 <Electronically signed by Palmira Johnson MD> Cosigner Signature (if applicable): CC: ~ Signed [facility] Work Phone: 1(893) 398-634704-28-2024 Progress note Author Vanessa Matias [facility] September 11, 2023 11:14am Note Date/Time September 11, 2023 11: 14am [facility] Medical Records Department [address] [place] [address] Progress Note - Hospitalist 09/11/23 1103 MR#: [id number] Acct: [id number] Name: MELISSA ELIAS Rep #:[id number] : 1965 58 From: Vanessa Matias DO PCP: Dr. Peter Thayer, Status:ADM IN Location: [place] [address]- Reason for Visit Reason for Visit: Urinary obstruction/hematuria Subjective Subjective Patient states his congestion is much better today with the addition of the Tessalon Perles and the Mucinex. No complaints. Currently sitting up in bed watching television. Anxious to get back to the nursing facility but understands this is an insurance issue. Very pleasant. Objective Data Objective Data Vital Signs: Vital Signs Temp Pulse Resp BP Pulse Ox O2 Del Method O2 Flow Rate 98.5 F 100 18 114/67 92 Room Air 2 09/11/23 09:45 09/11/23 09:45 09/11/23 09:45 09/11/23 09:45 09/11/23 09:45 09/11/23 09:45 09/11/23 03:05 Oxygen Flow Rate (L/min) 2 Oxygen Delivery Method Room Air Weight: 140 kg Body Mass Index (BMI) 48.4 Intake & Output: Intake and Output for Last 24 Hours 09/09/23 09/10/23 09/11/23 23:59 23:59 23:59 Intake Total 50 / 50 2395 / 2395 100 / 100 Output Total 2475 / 2475 2700 / 2700 650 / 650 Balance -2425 / -2425 -305 / -305 -550 / -550 Lab / Micro Data 09/11/23 06:00 09/10/23 04:10 Labs: Laboratory Results - last 24 hr 09/10/23 12:05: POC Glucose 220 H 09/10/23 17:29: POC Glucose 217 H 09/10/23 21:14: POC Glucose 235 H 09/11/23 06:00: WBC 10.8, RBC 3.29 L, Hgb 7.4 L, Hct 25.1 L, MCV 76.3 L, MCH 22.5 L, MCHC 29.5 L, RDW Std Deviation 58.7 H, RDW Coeff of Amry 21.1 H, Plt Count 386, MPV 8.8, Differential Comment 09/11/23 09:17: POC Glucose 139 H Micro: Microbiology 09/09/23 16:07 Urine Catheter - Catheter Urine Culture - Final Klebsiella pneumoniae sp pneum Proteus mirabilis 09/10/23 03:35 Stool Stool Occult Blood (OCTAVIO) - Final 08/31/23 12:44 Urine Catheter - Catheter Urine Culture - Final Culture exhibits no growth. Physical Exam Const alert, oriented x3, no apparent distress and well nourished; Negative for average body habitus or healthy appearing Constitutional Narrative: Morbidly, white male, sitting up in bed, watching television, appears comfortable, nontoxic HEENT head/scalp atraumatic and moist oral mucous membranes HEENT Narrative: Mallampati 4, no thrush Head and Scalp: normocephalic Resp normal respiratory effort, no retractions, no use of accessory muscles and clearto auscultation bilaterally Resp Narrative: Distant due to body habitus Cardio regular rate, regular rhythm, S1 normal heart sound, S2 normal heart sound, no murmurs, no rub, no gallops and no clicks GI normal to inspection, nondistended, normoactive bowel sounds, soft to palpation and non-tender GI Narrative: Bartlett in place with no signs of hematuria or clots in current Bartlett bag Extremity Extremity Narrative: Chronic bilateral lower extremity edema due to history of paraplegia and lack ofmovement-1+ and daily, no cyanosis or clubbing Neuro oriented x3, No moves all extremities, No no focal motor deficits and No no sensory deficits noted Neuro Narrative: Bilateral lower extremity flaccidity due to history of L1 injury Speech: speech normal Psych affect normal Psych Narrative: Eye contact is good, patient interacts appropriately Assessment & Plan Assessment/Plan (1) Chronic indwelling Bartlett catheter: (2) Blood loss anemia: (3) Clot retention of urine: (4) Acute urinary retention: (5) Gross hematuria: PLAN: Plan Bladder obstruction secondary to clots with hematuria -Eliquis on hold with plans to restart on 09/16/2023 -Status post cystoscopy x 2 with clot removal and fulguration of bleeding -Baseline hemoglobin appears to run between 8 and 9--> hemoglobin is stable in the mid 7 range -No gross blood in the Bartlett--> microscopic hematuria noted but improved fromprevious -Harjeet hemoglobin was 5.9 and patient received 2 units of packed red blood cells -Urology has signed off and okay for discharge -Patient will need to maintain Bartlett and follow-up as an outpatient with Dr. Persaud Acute complicated urinary tract infection-polymicrobial (Proteus/Klebsiella) -Patient was awaiting for discharge and insurance approval however his temperatures trended up and he had a new leukocytosis -UA was consistent with infection and culture is showing Proteus and Klebsiella that appear to be different from previous culture -Floral counts are 50,000 80,000 CFU's per mL however with instrumentation and his history we felt that we should be aggressive and treat this as he is extremely high risk for recurrent UTIs and given the fact he had recent instrumentation -UA is consistent with infection when previously it was not on 08/31/2023 -No need to change Bartlett per discussion with urology -Sensitivities show that these are both fairly sensitive organisms and will discontinue Zosyn and transition to Omnicef 300 mg p.o. twice daily for another 12 days to complete treatment for complicated UTI Acute on chronic anemia secondary to the above -Baseline hemoglobin is between 8 and 9 and hemoglobin currently stabilizing in the mid 7 range -Give 1 dose of IV iron -Start oral iron twice daily -Will need to monitor for constipation and as needed stool softeners are available -I will hold off on scheduling at this time because I would like to avoid diarrhea as he has chronic wounds and loose stools would increase his risk for infection of these wounds -Continue to monitor and transfuse for hemoglobin less than 7 Hypertension -Much improved blood pressure control overall -Continue home Norvasc -Continue Coreg 12.5 mg p.o. twice daily -Will trend Paraplegia secondary to previous injury at L1 -Continue supportive care Chronic constipation -Continue home bowel regimen History of DVT/PE -Apixaban on hold due to the above--> restart on 09/16/2023 per admission documentation DM-2 -Patient does not take any oral antihyperglycemic's -Continue home Lantus -Continue home lispro -SSI -Continue carb controlled diet and Accu-Cheks as ordered -Overall blood sugars appear to be well-controlled Chronic pain syndrome -Continue home gabapentin -Continue home oxycodone -Continue home oral morphine GERD -Continue home PPI Chronic lower extremity edema -Charlee wrap's as ordered Diabetic neuropathy -Continue home gabapentin BATOOL -Continue nocturnal BiPAP Chronic unstageable pressure ulcer bilateral buttocks -Wound care is following -No signs of infection -May need to consider diverting ostomy in future if recurrent wound infections become problematic -Continue to monitor Morbid obesity -BMI is 48.4 -Recommend weight loss -Complicates treatment, prognosis, outcomes History of tobacco abuse -Encourage ongoing cessation DVT prophylaxis -SCDs -Apixaban on hold due to hematuria CODE STATUS -Full code is verified on admission Disposition: -Patient remains medically ready for discharge since 09/06/2023. Plan is for return back to [place]. Awaiting pre-CERT from insurance. Charges/Coding Visit Charges Inpatient E&M: 93450 Subs Hosp L2 09/11/23 1114 <Electronically signed by Vanessa Matias DO> Cosigner Signature (if applicable): CC: ~ Signed [facility] Work Phone: 1(344) 203-751404-27-2024 Progress note Author Vanessa Matias [facility] September 10, 2023 1:37pm Note Date/Time September 10, 2023 1:3 7pm [facility] Medical Records Department [address] [place] [address] Progress Note - Hospitalist 09/10/23 1331 MR#: [id number] Acct: [id number] Name: MELISSA ELIAS Rep #:[id number] : 1965 58 From: Vanessa Matias DO PCP: Dr. Peter Thayer DO Status:ADM IN Location: [place] [id number] Reason for Visit Reason for Visit: Urinary obstruction/hematuria Subjective Subjective Patient complains of little bit of nasal congestion and feels he is either getting a cold or is having some allergies. Asks if we can get something for congestion and cough with postnasal drip. Denies any other complaints at this time. Objective Data Objective Data Vital Signs: Vital Signs Temp Pulse Resp BP Pulse Ox O2 Del Method O2 Flow Rate 98.5 F 94 18 127/59 H 99 Room Air 2 09/10/23 09:34 09/10/23 09:34 09/10/23 09:34 09/10/23 09:34 09/10/23 09:34 09/10/23 09:34 09/06/23 04:18 Oxygen Flow Rate (L/min) 2 Oxygen Delivery Method Room Air Weight: 134.3 kg Body Mass Index (BMI) 46.4 Intake & Output: Intake and Output for Last 24 Hours 09/08/23 09/09/23 09/10/23 23:59 23:59 23:59 Intake Total 2620 / 2620 50 / 50 1100 / 1100 Output Total 3800 / 3800 2475 / 2475 550 / 550 Balance -1180 / -1180 -2425 / -2425 550 / 550 Lab / Micro Data 09/10/23 04:36 09/10/23 04:10 Labs: Laboratory Results - last 24 hr 09/09/23 04:35: Diff Path Review Reviewed 09/09/23 16:07: Urine Color Yellow, Urine Clarity Cloudy, Urine pH 6.0, Ur Specific [place] 1.020, Urine Protein 30 H, Urine Glucose (UA) Normal, Urine Ketones Negative, Urine Occult Blood 150 H, Urine Nitrite Positive H, Urine Bilirubin Negative, Urine Urobilinogen 1 H, Ur Leukocyte Esterase 500 H, Urine RBC 0 SEEN, Urine WBC >100 SEEN, Ur Squamous Epith Cells 0-5 SEEN, Urine Bacteria 2+, Urine Mucus 0 SEEN 09/09/23 16:32: POC Glucose 186 H 09/09/23 21:09: POC Glucose 175 H 09/10/23 04:10: WBC 10.4, RBC 3.25 L, Hgb 7.3 L, Hct 25.1 L, MCV 77.2 L, MCH 22.5 L, MCHC 29.1 L, RDW Std Deviation 58.6 H, RDW Coeff of Mary 20.9 H, Plt Count 402, MPV 9.0, Immature Gran % (Auto) 1.300 H, Neut % (Auto) 61.5, Lymph % (Auto) 19.1, Hayes % (Auto) 9.3, Eos % (Auto) 8.4 H, Baso % (Auto) 0.4, Absolute Neuts (auto) 6.4, Absolute Lymphs (auto) 1.98, Nucleated RBC % 0, Differential Comment SCANNED, RBC Morphology 2+, Polychromasia 2+, Hypochromasia 2+, Stomatocytes 1+, Sodium 134 L, Potassium 4.2, Chloride 100, Carbon Dioxide 30.0,Anion Gap 4 L, BUN 12, Creatinine 0.60 L, Estim Creat Clear Calc 178.89, Est GFR(MDRD) Af Amer 179, Est GFR (MDRD) Non-Af 148, BUN/Creatinine Ratio 20.0, Glucose 204 H, Calcium 8.0 L 09/10/23 04:36: Hgb 7.4 L 09/10/23 09:20: POC Glucose 141 H 09/10/23 12:05: POC Glucose 220 H Micro: Microbiology 09/09/23 16:07 Urine Catheter - Catheter Urine Culture - Preliminary GNR lactose banking services advisor Gram negative sharif 08/31/23 12:44 Urine Catheter - Catheter Urine Culture - Final Culture exhibits no growth. Physical Exam Const alert, oriented x3, no apparent distress and well nourished; Negative for average body habitus or healthy appearing Constitutional Narrative: Morbidly, white male, sitting up in bed, watching television, appears comfortable, nontoxic, nurses aide at bedside HEENT head/scalp atraumatic and moist oral mucous membranes HEENT Narrative: No thrush, Mallampati 4 Resp normal respiratory effort, no retractions, no use of accessory muscles and clearto auscultation bilaterally Resp Narrative: Distant due to body habitus Cardio regular rate, regular rhythm, S1 normal heart sound, S2 normal heart sound, no murmurs, no rub, no gallops and no clicks Cardio Narrative: Mild tachycardia GI normal to inspection, nondistended, normoactive bowel sounds, soft to palpation and non-tender GI Narrative: Bartlett in place with no signs of hematuria Extremity Extremity Narrative: Chronic bilateral lower extremity edema due to history of paraplegia and lack ofmovement-1+ and daily, no cyanosis or clubbing Neuro oriented x3, No moves all extremities, No no focal motor deficits and No no sensory deficits noted Neuro Narrative: Bilateral lower extremity flaccidity due to history of L1 injury Speech: speech normal Psych affect normal Psych Narrative: Eye contact is good, patient interacts appropriately Assessment & Plan Assessment/Plan (1) Chronic indwelling Bartlett catheter: (2) Blood loss anemia: (3) Clot retention of urine: (4) Acute urinary retention: (5) Gross hematuria: PLAN: Plan Bladder obstruction secondary to clots with hematuria -Continue to hold Eliquis and restart on 09/16/2023 as previously indicated -Patient indicates it was to be held per previous hospitalization until 09/16/2023 so we will do so -Status post cystoscopy x 2 with clot removal and fulguration of bleeding -Baseline hemoglobin appears to run between 8 and 9--> 7.9 yesterday and 7.4 today with repeat at 7.5 -No gross blood in the Bartlett--> microscopic hematuria noted but improved fromprevious -Harjeet hemoglobin was 5.9 and patient received 2 units of packed red blood cells -Urology has signed off and okay for discharge -Patient will need to maintain Bartlett and follow-up as an outpatient with Dr. Persaud Leukocytosis -This was new as of yesterday and was 12.5 resulted after previous documentation -I did check a UA as his temperatures started to trend up but he was not actually febrile -UA is consistent with infection when previously it was not on 08/31/2023 -Urine culture sent and pending -Zosyn initiated yesterday -White count has normalized and fever curve seems to be improving -Await culture and sensitivities and compared to previous as he likely has chronic colonization but any new organism should be treated especially with instrumentation and new Bartlett placement -Discussed with Dr. Rosado Acute on chronic anemia secondary to the above -Baseline hemoglobin is between 8 and 9 and hemoglobin currently stabilizing in the mid 7-8 range -Continue to monitor and transfuse for hemoglobin less than 7 Hypertension -Much improved blood pressure control overall -Continue home Norvasc -Continue Coreg 12.5 mg p.o. twice daily -Will trend Paraplegia secondary to previous injury at L1 -Continue supportive care Chronic constipation -Continue home bowel regimen History of DVT/PE -Apixaban on hold due to the above--> restart on 09/16/2023 per admission documentation DM-2 -Patient does not take any oral antihyperglycemic's -Continue home Lantus -Continue home lispro -SSI -Continue carb controlled diet and Accu-Cheks as ordered -Overall blood sugars appear to be well-controlled Chronic pain syndrome -Continue home gabapentin -Continue home oxycodone -Continue home oral morphine GERD -Continue home PPI Chronic lower extremity edema -Charlee wrap's as ordered Diabetic neuropathy -Continue home gabapentin BATOOL -Continue nocturnal BiPAP Chronic unstageable pressure ulcer bilateral buttocks -Wound care is following -No signs of infection -Continue to monitor Morbid obesity -BMI is 46.5 -Recommend weight loss -Complicates treatment, prognosis, outcomes History of tobacco abuse -Encourage ongoing cessation DVT prophylaxis -SCDs -Apixaban on hold due to hematuria CODE STATUS -Full code is verified on admission Disposition: -Patient remains medically ready for discharge since 09/06/2023. Plan is for return back to [place]. Awaiting pre-CERT from insurance. Charges/Coding Visit Charges Inpatient E&M: 50821 [facility] Hosp L2 09/10/23 1337 <Electronically signed by Vanessa Matias DO> Cosigner Signature (if applicable): CC: ~ Signed [facility] Work Phone: 1(401) 617-111204-26-2024 Progress note Author Vanessa Matias [facility] September 09, 2023 3:40pm Note Date/Time September 09, 2023 3:4 0pm [facility] Medical Records Department [address] [place] [address] Progress Note - Hospitalist 09/09/23 1537 MR#: [id number] Acct: [id number] Name: MELISSA ELIAS Rep #:[id number] : 1965 58 From: Vanessa Matias DO PCP: Dr. Peter Thayer DO Status:ADM IN Location: [facility] [id number] Reason for Visit Reason for Visit: Urinary obstruction/hematuria Subjective Subjective No issues overnight. Urine in Bartlett remains clear with no signs of hematuria. Patient without complaints. He is just frustrated with his insurance company. Objective Data Objective Data Vital Signs: Vital Signs Temp Pulse Resp BP Pulse Ox O2 Del Method O2 Flow Rate 98.9 F 94 16 107/59 L 94 Room Air 2 09/09/23 11:22 09/09/23 11:22 09/09/23 11:22 09/09/23 11:22 09/09/23 11:22 09/09/23 14:00 09/06/23 04:18 Oxygen Flow Rate (L/min) 2 Oxygen Delivery Method Room Air Weight: 134.2 kg Body Mass Index (BMI) 46.4 Intake & Output: Intake and Output for Last 24 Hours 09/07/23 09/08/23 09/09/23 23:59 23:59 23:59 Intake Total 740 / 980 2620 / 2620 Output Total 4600 / 5500 3800 / 3800 1200 / 1200 Balance -3860 / -4520 -1180 / -1180 -1200 / -1200 Lab / Micro Data 09/09/23 04:35 09/06/23 04:00 Labs: Laboratory Results - last 24 hr 09/08/23 17:04: POC Glucose 156 H 09/08/23 23:12: POC Glucose 137 H 09/09/23 04:35: WBC 12.1 H, RBC 3.51 L, Hgb 7.9 L, Hct 27.3 L, MCV 77.8 L, MCH 22.5 L, MCHC 28.9 L, RDW Std Deviation 59.8 H, RDW Coeff of Mary 21.2 H, Plt Count 431, MPV 9.1, Differential Comment SCANNED, Diff Path Review Reviewed 09/09/23 08:57: POC Glucose 142 H 09/09/23 11:19: POC Glucose 173 H Micro: Microbiology 08/31/23 12:44 Urine Catheter - Catheter Urine Culture - Final Culture exhibits no growth. Physical Exam Const alert, oriented x3, no apparent distress and well nourished; Negative for average body habitus or healthy appearing Constitutional Narrative: Morbidly, white male, sitting up in bed, watching television, appears comfortable, nontoxic Neuro Speech: speech normal Psych affect normal Psych Narrative: Eye contact is good, patient interacts appropriately Assessment & Plan Assessment/Plan (1) Chronic indwelling Bartlett catheter: (2) Blood loss anemia: (3) Clot retention of urine: (4) Acute urinary retention: (5) Gross hematuria: PLAN: Plan Bladder obstruction secondary to clots with hematuria -Continue to hold Eliquis and restart on 09/16/2023 as previously indicated -Okay to restart whenever per urology -Status post cystoscopy x 2 with clot removal and fulguration of bleeding -Baseline hemoglobin appears to run between 8 and 9--> currently 7.9--> repeat in a.m. -Harjeet hemoglobin was 5.9 and patient received 2 units of packed red blood cells -Urology has signed off and okay for discharge -Patient will need to maintain Bartlett and follow-up as an outpatient with Dr. Cori Espinoza on chronic anemia secondary to the above -Baseline hemoglobin is between 8 and 9 and hemoglobin appears to be stabilizing -Continue to monitor and transfuse for hemoglobin less than 7 Hypertension -Much better blood pressure control on Coreg and Norvasc -Continue home Norvasc -Continue Coreg 12.5 mg p.o. twice daily -Will trend Paraplegia secondary to previous injury at L1 -Continue supportive care Chronic constipation -Continue home bowel regimen History of DVT/PE -Apixaban on hold due to the above--> restart on 09/16/2023 per admission documentation DM-2 -Patient does not take any oral antihyperglycemic's -Continue home Lantus -Continue home lispro -SSI -Continue carb controlled diet and Accu-Cheks as ordered -Overall blood sugars appear to be well-controlled Chronic pain syndrome -Continue home gabapentin -Continue home oxycodone -Continue home oral morphine GERD -Continue home PPI Chronic lower extremity edema -Charlee wrap's as ordered Diabetic neuropathy -Continue home gabapentin BATOOL -Continue nocturnal BiPAP Chronic unstageable pressure ulcer bilateral buttocks -Wound care is following -No signs of infection -Continue to monitor Morbid obesity -BMI is 4646 -Recommend weight loss -Complicates treatment, prognosis, outcomes History of tobacco abuse -Encourage ongoing cessation DVT prophylaxis -SCDs -Apixaban on hold due to hematuria CODE STATUS -Full code is verified on admission Disposition: -Patient remains medically ready for discharge since 09/06/2023. Plan is for return back to [place]. Awaiting pre-CERT from insurance. Charges/Coding Visit Charges Inpatient E&M: 42177 Subs Hosp L1 09/09/23 1540 <Electronically signed by Vanessa Matias DO> Cosigner Signature (if applicable): CC: ~ Signed [facility] Work Phone: 1(702) 536-757904-25-2024 Progress note Author Vanessa Matias [facility] September 08, 2023 4:40pm Note Date/Time September 08, 2023 4:4 0pm [facility] Medical Records Department [address] [place] [address] Progress Note - Hospitalist 09/08/23 1636 MR#: [id number] Acct: [id number] Name: MELISSA ELIAS Rep #:[id number] : 1965 58 From: Vanessa Matias DO PCP: Dr. Peter Thayer, DO Status:ADM IN Location: [place] [address] Reason for Visit Reason for Visit: Urinary obstruction/hematuria Subjective Subjective No issues overnight. Bartlett remains clear. Awaiting pre-CERT. Patient has no complaints. Objective Data Objective Data Vital Signs: Vital Signs Temp Pulse Resp BP Pulse Ox O2 Del Method O2 Flow Rate 96.5 F L 98 18 118/60 94 Room Air 2 09/08/23 10:00 09/08/23 10:00 09/08/23 10:00 09/08/23 10:00 09/08/23 10:00 09/08/23 10:00 09/06/23 04:18 Oxygen Flow Rate (L/min) 2 Oxygen Delivery Method Room Air Weight: 132.7 kg Body Mass Index (BMI) 45.9 Intake & Output: Intake and Output for Last 24 Hours 09/06/23 09/07/23 09/08/23 23:59 23:59 23:59 Intake Total 850 / 1090 740 / 980 2140 / 2140 Output Total 2800 / 4100 4600 / 5500 2300 / 2300 Balance -1950 / -3010 -3860 / -4520 -160 / -160 Lab / Micro Data 09/07/23 03:45 09/06/23 04:00 Labs: Laboratory Results - last 24 hr 09/07/23 17:05: POC Glucose 156 H 09/07/23 22:23: POC Glucose 147 H 09/08/23 08:02: POC Glucose 136 H 09/08/23 10:46: POC Glucose 198 H Micro: Microbiology 08/31/23 12:44 Urine Catheter - Catheter Urine Culture - Final Culture exhibits no growth. Physical Exam Const alert, oriented x3, no apparent distress and well nourished; Negative for average body habitus or healthy appearing Constitutional Narrative: Morbidly, white male, sitting up in bed, watching television, appears comfortable, nontoxic HEENT head/scalp atraumatic Head and Scalp: normocephalic Neuro oriented x3 Psych affect normal Psych Narrative: Eye contact is good, patient interacts appropriately Assessment & Plan Assessment/Plan (1) Chronic indwelling Bartlett catheter: (2) Blood loss anemia: (3) Clot retention of urine: (4) Acute urinary retention: (5) Gross hematuria: PLAN: Plan Bladder obstruction secondary to clots with hematuria -Continue to hold Eliquis and restart on 09/16/2023 as previously indicated -Okay to restart whenever per urology -Status post cystoscopy x 2 with clot removal and fulguration of bleeding -Baseline hemoglobin appears to run between 8 and 9 -Harjeet hemoglobin was 5.9 and patient received 2 units of packed red blood cells -Urology has signed off and okay for discharge -Patient will need to maintain Bartlett and follow-up as an outpatient with Dr. Cori Espinoza on chronic anemia secondary to the above -Baseline hemoglobin is between 8 and 9 and hemoglobin has appeared to stabilize -Continue to monitor and transfuse for hemoglobin less than 7 Hypertension -Blood pressure had been elevated but much better with initiation of Norvasc andCoreg -Continue home Norvasc -Continue Coreg 12.5 mg p.o. twice daily -Will trend Paraplegia secondary to previous injury at L1 -Continue supportive care Chronic constipation -Continue home bowel regimen History of DVT/PE -Apixaban on hold due to the above--> restart on 09/16/2023 per admission documentation DM-2 -Patient does not take any oral antihyperglycemic's -Continue home Lantus -Continue home lispro -SSI -Continue carb controlled diet and Accu-Cheks as ordered -Overall blood sugars appear to be well-controlled Chronic pain syndrome -Continue home gabapentin -Continue home oxycodone -Continue home oral morphine GERD -Continue home PPI Chronic lower extremity edema -Charlee wrap's as ordered Diabetic neuropathy -Continue home gabapentin BATOOL -Continue nocturnal BiPAP Chronic unstageable pressure ulcer bilateral buttocks -Wound care is following -No signs of infection -Continue to monitor Morbid obesity -BMI is 46.6 -Recommend weight loss -Complicates treatment, prognosis, outcomes History of tobacco abuse -Encourage ongoing cessation DVT prophylaxis -SCDs -Apixaban on hold due to hematuria CODE STATUS -Full code is verified on admission Disposition: -Patient remains medically ready for discharge since 09/06/2023. Plan is for return back to [place]. Awaiting pre-CERT from insurance. Charges/Coding Visit Charges Inpatient E&M: 75513 Subs Hosp L1 09/08/23 1640 <Electronically signed by Vanessa Matias DO> Cosigner Signature (if applicable): CC: ~ Signed [facility] Work Phone: 1(109) 995-628404-24-2024 Progress note Author Vanessa Matias [facility] September 07, 2023 3:38pm Note Date/Time September 07, 2023 3:3 8pm [facility] Medical Records Department [address] [place] [address] Progress Note - Hospitalist 09/07/23 1534 MR#: [id number] Acct: [id number] Name: MELISSA ELIAS Rep #:[id number] : 1965 58 From: Vanessa Matias DO PCP: Dr. Peter Thayer DO Status:ADM IN Location: [place] [address] Reason for Visit Reason for Visit: Urinary retention/gross hematuria Subjective Subjective No overnight issues. Blood pressure and heart rate remains slightly elevated however this looks like his chronic. I will uptitrate his beta-ya some to see if we get better control of both. Denies any complaints currently. Still awaiting pre- CERT. Remains medically stable for discharge. Objective Data Objective Data Vital Signs: Vital Signs Temp Pulse Resp BP Pulse Ox O2 Del Method O2 Flow Rate 98.2 F 105 H 16 152/81 H 94 Room Air 2 09/07/23 09:16 09/07/23 09:16 09/07/23 09:16 09/07/23 09:16 09/07/23 09:16 09/07/23 09:16 09/06/23 04:18 Oxygen Flow Rate (L/min) 2 Oxygen Delivery Method Room Air Weight: 134.8 kg Body Mass Index (BMI) 46.6 Intake & Output: Intake and Output for Last 24 Hours 09/05/23 09/06/23 09/07/23 23:59 23:59 23:59 Intake Total 3526.45 / 3526.45 850 / 1090 740 / 740 Output Total 4950 / 4950 2800 / 4100 3950 / 3950 Balance -1423.55 / -1423.55 -1950 / -3010 -3210 / -3210 Lab / Micro Data 09/07/23 03:45 09/06/23 04:00 Labs: Laboratory Results - last 24 hr 09/06/23 16:41: POC Glucose 147 H 09/06/23 22:37: POC Glucose 123 H 09/07/23 03:45: WBC 9.1, RBC 3.93 L, Hgb 9.1 L, Hct 31.1 L, MCV 79.1 L, MCH 23.2L, MCHC 29.3 L, RDW Std Deviation 59.6 H, RDW Coeff of Mary 20.5 H, Plt Count 437, MPV 9.0, Differential Comment COMMENT 09/07/23 06:08: POC Glucose 134 H 09/07/23 11:00: POC Glucose 193 H Micro: Microbiology 08/31/23 12:44 Urine Catheter - Catheter Urine Culture - Final Culture exhibits no growth. Physical Exam Const alert, oriented x3, no apparent distress and well nourished; Negative for average body habitus or healthy appearing Constitutional Narrative: Morbidly obese, middle-aged, white male, sitting up in bed, appears comfortable and nontoxic, watching television HEENT head/scalp atraumatic and moist oral mucous membranes HEENT Narrative: Mallampati 4, no thrush Head and Scalp: normocephalic Resp normal respiratory effort, no retractions, no use of accessory muscles and clearto auscultation bilaterally Resp Narrative: Distant due to body habitus Cardio regular rhythm, S1 normal heart sound, S2 normal heart sound, no murmurs, no rub, no gallops and no clicks Cardio Narrative: Mild tachycardia GI normal to inspection, nondistended, normoactive bowel sounds, soft to palpation and non-tender Extremity Extremity Narrative: Chronic bilateral lower extremity edema due to history of paraplegia and lack ofmovement-1+ and daily, no cyanosis or clubbing Neuro oriented x3, No moves all extremities, No no focal motor deficits and No no sensory deficits noted Neuro Narrative: Bilateral lower extremity flaccidity due to history of L1 injury Speech: speech normal Psych affect normal Psych Narrative: Very pleasant, interacts appropriately Assessment & Plan Assessment/Plan (1) Blood loss anemia: (2) Clot retention of urine: (3) Acute urinary retention: (4) Gross hematuria: PLAN: Plan Bladder obstruction secondary to clots with hematuria -Continue to hold Eliquis -Status post cystoscopy x 2 with clot removal and fulguration of bleeding -No further bleeding and continuous bladder irrigation has been discontinued -Baseline hemoglobin appears to run between 8 and 9 -Hemoglobin was stable at 9.1 today -No reason to continue to trend hemoglobin as long as no further gross hematuria -Harjeet hemoglobin was 5.9 and patient received 2 units of packed red blood cells -Per discussion with urology okay to restart Eliquis now however there is a notethat states resume on 09/16/2023 -Will need to discuss further with patient and see if he knows why it is on hold till then -Urology has signed off and okay for discharge -Patient will need to maintain Bartlett and follow-up as an outpatient with Dr. Cori Espinoza on chronic anemia secondary to the above -Baseline hemoglobin is between 8 and 9 -Current hemoglobin is relatively stable in the mid 7 range status post 2 units of packed red blood cells on 08/31 -Continue to monitor and transfuse for hemoglobin less than 7 -Anticipate stabilization as hematuria has appeared to resolve Hypertension -Blood pressure has consistently been elevated -Patient not on any medication previously for this -Continue home Norvasc -Continue Coreg but increase to 12.5 mg twice daily as blood pressures are stillelevated -Will trend Paraplegia secondary to previous injury at L1 -Continue supportive care Chronic constipation -Continue home bowel regimen History of DVT/PE -Apixaban on hold due to the above--> okay to restart per urology but there is anote that states this is on hold until 09/15/2022 so this will need to be investigated further DM-2 -Patient does not take any oral antihyperglycemic's -Continue home Lantus -Continue home lispro -SSI -Continue carb controlled diet and Accu-Cheks as ordered -Overall blood sugars appear to be well-controlled Chronic pain syndrome -Continue home gabapentin -Continue home oxycodone -Continue home oral morphine GERD -Continue home PPI Chronic lower extremity edema -Charlee wrap's as ordered Diabetic neuropathy -Continue home gabapentin BATOOL -Continue nocturnal BiPAP Chronic unstageable pressure ulcer bilateral buttocks -Wound care is following -No signs of infection -Continue to monitor Morbid obesity -BMI is 46.6 -Recommend weight loss -Complicates treatment, prognosis, outcomes History of tobacco abuse -Encourage ongoing cessation DVT prophylaxis -SCDs -Apixaban on hold due to hematuria CODE STATUS -Full code is verified on admission Disposition: -Patient remains medically ready for discharge since 09/06/2023. Plan is for return back to [place]. Awaiting pre-CERT from insurance. Charges/Coding Visit Charges Inpatient E&M: 60965 Subs Hosp L2 09/07/23 1538 <Electronically signed by Vanessa Matias DO> Cosigner Signature (if applicable): CC: ~ Signed [facility] Work Phone: 1(853) 714-159004-23-2024 Progress note Author Vanessa Matias [facility] September 06, 2023 4:32pm Note Date/Time September 06, 2023 4:3 3pm [facility] Medical Records Department [address] [place] [id number] Progress Note - Hospitalist 09/06/23 1626 MR#: [id number] Acct: [id number] Name: MELISSA ELIAS FLORENCIO Rep #:[id number] : 1965 58 From: Vanessa Matias DO PCP: Dr. Peter Thayer DO Status:ADM IN Location: [place] [address] Reason for Visit Reason for Visit: Urinary retention/hematuria Subjective Subjective No issues overnight. Continuous bladder irrigation has been discontinued and urine remains clear. Hemoglobin is stabilized. Patient has no complaints at this time. Objective Data Objective Data Vital Signs: Vital Signs Temp Pulse Resp BP Pulse Ox O2 Del Method O2 Flow Rate 98.3 F 117 H 16 135/94 H 94 Room Air 2 09/06/23 14:47 09/06/23 14:47 09/06/23 14:47 09/06/23 14:47 09/06/23 14:47 09/06/23 14:50 09/06/23 04:18 Oxygen Flow Rate (L/min) 2 Oxygen Delivery Method Room Air Weight: 134.8 kg Body Mass Index (BMI) 46.6 Intake & Output: Intake and Output for Last 24 Hours 09/04/23 09/05/23 09/06/23 23:59 23:59 23:59 Intake Total 360 / 1210 3526.45 / 3526.45 350 / 350 Output Total 6950 / 7800 4950 / 4950 2450 / 2450 Balance -6590 / -6590 -1423.55 / -1423.55 -2100 / -2100 Lab / Micro Data 09/06/23 04:00 09/06/23 04:00 Labs: Laboratory Results - last 24 hr 09/05/23 16:08: POC Glucose 118 H 09/05/23 21:22: POC Glucose 162 H 09/06/23 04:00: WBC 9.3, RBC 3.42 L, Hgb 7.9 L, Hct 27.0 L, MCV 78.9 L, MCH 23.1L, MCHC 29.3 L, RDW Std Deviation 58.7 H, RDW Coeff of Mary 20.3 H, Plt Count 457H, MPV 8.9, Immature Gran % (Auto) 1.300 H, Neut % (Auto) 49.5, Lymph % (Auto) 30.7, Hayes % (Auto) 10.2 H, Eos % (Auto) 7.7 H, Baso % (Auto) 0.6, Absolute Neuts (auto) 4.6, Absolute Lymphs (auto) 2.85, Nucleated RBC % 0.2, DifferentialComment SCANNED, Anisocytosis 2+, Sodium 137, Potassium 3.9, Chloride 102, Carbon Dioxide 30.0, Anion Gap 5, BUN 11, Creatinine 0.44 L, Estim Creat Clear Calc 244.47, Est GFR (MDRD) Af Amer 254, Est GFR (MDRD) Non-Af 210, BUN/Creatinine Ratio 24.8 H, Glucose 139 H, Calcium 8.4 L, Phosphorus 3.4, Magnesium 1.6 09/06/23 06:00: POC Glucose 142 H 09/06/23 08:14: POC Glucose 139 H 09/06/23 11:43: POC Glucose 171 H Micro: Microbiology 08/31/23 12:44 Urine Catheter - Catheter Urine Culture - Final Culture exhibits no growth. Physical Exam Const alert, oriented x3, no apparent distress and well nourished; Negative for average body habitus or healthy appearing Constitutional Narrative: Morbidly obese, middle-aged, white male, sitting up in bed, appears comfortable and nontoxic HEENT head/scalp atraumatic and moist oral mucous membranes Head and Scalp: normocephalic Resp normal respiratory effort, no retractions, no use of accessory muscles and clearto auscultation bilaterally Resp Narrative: Distant due to body habitus Cardio regular rate, regular rhythm, S1 normal heart sound, S2 normal heart sound, no murmurs, no rub, no gallops and no clicks GI normal to inspection, nondistended, normoactive bowel sounds, soft to palpation and non-tender Extremity Extremity Narrative: Chronic bilateral lower extremity edema due to history of paraplegia and lack ofmovement-1+ and daily, no cyanosis or clubbing Neuro oriented x3, CN's II-XII intact bilaterally, No moves all extremities, No no focal motor deficits and No no sensory deficits noted Neuro Narrative: Bilateral lower extremity flaccidity due to history of L1 injury Speech: speech normal Psych affect normal Psych Narrative: Very pleasant, interacts appropriately Assessment & Plan Assessment/Plan (1) Blood loss anemia: (2) Clot retention of urine: (3) Acute urinary retention: (4) Gross hematuria: PLAN: Plan Bladder obstruction secondary to clots with hematuria -Continue to hold Eliquis -Status post cystoscopy x 2 with clot removal and fulguration of bleeding -No further bleeding and continuous bladder irrigation has been discontinued -Baseline hemoglobin appears to run between 8 and 9 -Hemoglobin was stable at 7.9 today -Repeat CBC in a.m. -Harjeet hemoglobin was 5.9 and patient received 2 units of packed red blood cells -Per discussion with urology okay to restart Eliquis now however there is a notethat states resume on 09/16/2023 -Will need to discuss further with patient and see if he knows why it is on hold till then -Urology has signed off and okay for discharge -Patient will need to maintain Bartlett and follow-up as an outpatient with Dr. Cori Espinoza on chronic anemia secondary to the above -Repeat CBC in a.m. -Baseline hemoglobin is between 8 and 9 -Current hemoglobin is relatively stable in the mid 7 range status post 2 units of packed red blood cells on 08/31 -Continue to monitor and transfuse for hemoglobin less than 7 -Anticipate stabilization as hematuria has appeared to resolve Hypertension -Blood pressure has consistently been elevated -Patient not on any medication previously for this -For source of Norvasc received today -Blood pressures are better overall but still elevated -Will start low-dose Coreg at 3.125 twice daily -Will trend Paraplegia secondary to previous injury at L1 -Continue supportive care Chronic constipation -Continue home bowel regimen History of DVT/PE -Apixaban on hold due to the above--> okay to restart per urology but there is anote that states this is on hold until 09/15/2022 so this will need to be investigated further DM-2 -Patient does not take any oral antihyperglycemic's -Continue home Lantus -Continue home lispro -SSI -Continue carb controlled diet and Accu-Cheks as ordered -Overall blood sugars appear to be well-controlled Chronic pain syndrome -Continue home gabapentin -Continue home oxycodone -Continue home oral morphine GERD -Continue home PPI Chronic lower extremity edema -Charlee wrap's as ordered Diabetic neuropathy -Continue home gabapentin BATOOL -Continue nocturnal BiPAP Chronic unstageable pressure ulcer bilateral buttocks -Wound care is following -No signs of infection -Continue to monitor Morbid obesity -BMI is 46.5 -Recommend weight loss -Complicates treatment, prognosis, outcomes History of tobacco abuse -Encourage ongoing cessation DVT prophylaxis -SCDs -Apixaban on hold due to hematuria CODE STATUS -Full code is verified on admission Disposition: -Patient is medically ready for discharge. Plan is for return back to [place]. Awaiting pre-CERT from insurance. Charges/Coding Visit Charges Inpatient E&M: 35318 Subs Hosp L2 09/06/23 1632 <Electronically signed by Vanessa Matias DO> Cosigner Signature (if applicable): CC: ~ Signed [facility] Work Phone: 1([phone]) 835-299904-23-2024 Progress note Author Latha Rosado [facility] September 06, 2023 8:37am Note Date/Time September 06, 2023 8:3 4am [facility] Medical Records Department [address] [place] [address] Progress Note - Urology 09/06/23 0832 MR#: [id number] Acct: [id number] Name: MELISSA ELIAS Rep #:[id number] : 1965 58 From: Latha Contreras PCP: Dr. Peter Thayer DO Status:ADM IN Location: [place] [address] 1 Subjective Subjective Feeling so much better. We discussed that he has a long urethra, and the bartlett catheter should essentially be at the hub or it is not likely in the correct position and could indicated bartlett trauma. He knows that he is to follow up with at discharge for further urologic management. Objective Data Objective Data Vital Signs: Vital Signs Temp Pulse Resp BP Pulse Ox O2 Del Method O2 Flow Rate 98.0 F 101 H 16 168/86 H 95 Room Air 2 09/06/23 08:17 09/06/23 08:17 09/06/23 08:17 09/06/23 08:17 09/06/23 08:17 09/06/23 08:17 09/06/23 04:18 Oxygen Flow Rate (L/min) 2 Oxygen Delivery Method Room Air Weight: 134.8 kg Body Mass Index (BMI) 46.6 Intake & Output: Intake and Output for Last 24 Hours 09/04/23 09/05/23 09/06/23 23:59 23:59 23:59 Intake Total 360 / 1210 3526.45 / 3526.45 350 / 350 Output Total 6950 / 7800 4950 / 4950 1100 / 1100 Balance -6590 / -6590 -1423.55 / -1423.55 -750 / -750 Lab / Micro Data Attestation: I reviewed the patient's lab results. 09/06/23 04:00 09/06/23 04:00 Labs: Laboratory Results - last 24 hr 09/05/23 08:34: POC Glucose 127 H 09/05/23 11:06: POC Glucose 208 H 09/05/23 16:08: POC Glucose 118 H 09/05/23 21:22: POC Glucose 162 H 09/06/23 04:00: WBC 9.3, RBC 3.42 L, Hgb 7.9 L, Hct 27.0 L, MCV 78.9 L, MCH 23.1L, MCHC 29.3 L, RDW Std Deviation 58.7 H, RDW Coeff of Mary 20.3 H, Plt Count 457H, MPV 8.9, Immature Gran % (Auto) 1.300 H, Neut % (Auto) 49.5, Lymph % (Auto) 30.7, Hayes % (Auto) 10.2 H, Eos % (Auto) 7.7 H, Baso % (Auto) 0.6, Absolute Neuts (auto) 4.6, Absolute Lymphs (auto) 2.85, Nucleated RBC % 0.2, DifferentialComment SCANNED, Anisocytosis 2+, Sodium 137, Potassium 3.9, Chloride 102, Carbon Dioxide 30.0, Anion Gap 5, BUN 11, Creatinine 0.44 L, Estim Creat Clear Calc 244.47, Est GFR (MDRD) Af Amer 254, Est GFR (MDRD) Non-Af 210, BUN/Creatinine Ratio 24.8 H, Glucose 139 H, Calcium 8.4 L, Phosphorus 3.4, Magnesium 1.6 09/06/23 06:00: POC Glucose 142 H Micro: Microbiology 08/31/23 12:44 Urine Catheter - Catheter Urine Culture - Final Culture exhibits no growth. Physical Exam Narrative abdomen is soft. urine is clear yellow with CBI turned off. Const alert, oriented x3 and no apparent distress Assessment & Plan Assessment/Plan (1) Clot retention of urine: PLAN: unhook CBI today continue bartlett catheter follow up with as outpatient subsequent bartlett catheters should maintain same position with hub essentially atthe meatus or very close. call with any questions during this admission. thank you (2) Acute urinary retention: (3) Chronic indwelling Bartlett catheter: 09/06/23 0837 <Electronically signed by Latha Rosado MD> Cosigner Signature (if applicable): CC: ~ Signed [facility] Work Phone: 1(682) 692-726304-22-2024 Progress note Author Vanessa Matias [facility] September 05, 2023 4:21pm Note Date/Time September 05, 2023 4:2 1pm [facility] Medical Records Department [address] [place] [address] Progress Note - Hospitalist 09/05/23 1606 MR#: [id number] Acct: [id number] Name: MELISSA ELIAS Rep #:[id number] : 1965 58 From: Vanessa Matias DO PCP: Dr. Peter Thayer, DO Status:ADM IN Location: [place] [address] Reason for Visit Reason for Visit: Urinary retention/hematuria Subjective Subjective Mr. Elias is a 58-year-old white male with a history of paraplegia due to anL1 injury previously who presented to the emergency department at [facility] from local nursing facility on 08/31/2023 due to episodes of hematuria as well as blood clots noted in his chronic Bartlett. This eventually became obstructed and he had no urinary output with significant onset of suprapubic pain and discomfort with bladder spasms. He is chronically anticoagulated with with Eliquis for history of bilateral pulmonary emboli. Vital signs on presentation showed temperature of 96.8, heart rate 119, blood pressure 120/79, respiratory was 18 oxygen saturations were 97% on room air. His CBC showed a significant leukocytosis with a white count of 25.5, hemoglobin8.2 with microcytosis noted, thrombocytosis with platelet count of 689,000 and aleft shift. BMP showed hyponatremia with a sodium of 132, BUN of 26 with a serum creatinine of 1.15. His urinalysis showed red cloudy urine that was not consistent with infection and a CT of his abdomen pelvis showed a small amount of perihepatic fluid with a distended urinary bladder and dense material along the dependent portion suggestive of clot versus mass. Abnormalities in the softtissue in the middle aspect of his gluteus that are consistent with his chronic decubitus ulcers. Multiple attempts were made for Bartlett catheter placement in the emergency department however they were unsuccessful and fortunately urology was able to come in and place a Bartlett but is out of town. Plan initially was for transfer to [facility] however no bed was available so he was admitted to the medical floor and urology was consulted due to ongoing hematuria. His anticoagulation with Eliquis was held on admission. Continuous irrigation was initiated. He was seen by Dr. Rosado and taken for cystoscopy on 09/02/2023 at which time clot evaluation and cystogram was performed with fulguration of bleeding. The intention was to discharge him back to his facility however he developed new acute urinary retention with clotting noted inthe Bartlett. We did obtain a bed at [facility] however the patient elected to say and was continued to be followed by Dr. Rosado. With initiation of new bleeding repeat cystoscopy with clot evaluation and fulguration was performed and since his urine has cleared. Overall he seems to be doing much better. His urine is clear and continuous bladder irrigation was discontinued. Awaiting further input from urology Objective Data Objective Data Vital Signs: Vital Signs Temp Pulse Resp BP Pulse Ox O2 Del Method O2 Flow Rate 98.6 F 111 H 17 156/89 H 95 Room Air 2 09/05/23 15:40 09/05/23 15:45 09/05/23 15:40 09/05/23 15:45 09/05/23 15:40 09/05/23 15:40 09/05/23 02:50 Oxygen Flow Rate (L/min) 2 Oxygen Delivery Method Room Air Weight: 134.5 kg Body Mass Index (BMI) 46.5 Intake & Output: Intake and Output for Last 24 Hours 09/03/23 09/04/23 09/05/23 23:59 23:59 23:59 Intake Total 3920 / 3920 360 / 1210 1540 / 1540 Output Total 15406 / 52042 6950 / 7800 1600 / 1600 Balance -6974 / -6974 -6590 / -6590 -60 / -60 Lab / Micro Data 09/04/23 05:00 09/04/23 05:00 Labs: Laboratory Results - last 24 hr 09/04/23 12:00: POC Glucose 111 H 09/04/23 16:09: POC Glucose 158 H 09/04/23 21:31: POC Glucose 164 H 09/05/23 06:27: POC Glucose 151 H 09/05/23 08:34: POC Glucose 127 H 09/05/23 11:06: POC Glucose 208 H Micro: Microbiology 08/31/23 12:44 Urine Catheter - Catheter Urine Culture - Final Culture exhibits no growth. Assessment & Plan Assessment/Plan (1) Blood loss anemia: (2) Clot retention of urine: (3) Acute urinary retention: (4) Gross hematuria: PLAN: Plan Bladder obstruction secondary to clots with hematuria -Continue to hold Eliquis -Status post cystoscopy x 2 with clot removal and fulguration of bleeding -Baseline hemoglobin appears to run between 8 and 9 -Hemoglobin has been stable in the mid 7 range over the last 24 hours -Repeat CBC in a.m. -Harjeet hemoglobin was 5.9 and patient received 2 units of packed red blood cells -Urology is following-appreciate input -Will continue to hold Eliquis until okay to restart from a urological standpoint -Stop meropenem as urine culture is negative Acute on chronic anemia secondary to the above -Repeat CBC in a.m. -Baseline hemoglobin is between 8 and 9 -Current hemoglobin is relatively stable in the mid 7 range status post 2 units of packed red blood cells on 08/31 -Continue to monitor and transfuse for hemoglobin less than 7 -Anticipate stabilization as hematuria has appeared to resolve Hypertension -Blood pressure has consistently been elevated -Patient not on any medication previously for this -Will start Norvasc 10 mg -If blood pressures remain elevated will consider starting low-dose lisinopril with history of diabetes for renal protection -Will trend Paraplegia secondary to previous injury at L1 -Continue supportive care Chronic constipation -Continue home bowel regimen History of DVT/PE -Apixaban on hold due to the above -Restart once okay from urological standpoint DM-2 -Patient does not take any oral antihyperglycemic's -Continue home Lantus -Continue home lispro -SSI -Continue carb controlled diet and Accu-Cheks as ordered -Overall blood sugars appear to be well-controlled Chronic pain syndrome -Continue home gabapentin -Continue home oxycodone -Continue home oral morphine GERD -Continue home PPI Chronic lower extremity edema -Charlee wrap's as ordered Diabetic neuropathy -Continue home gabapentin BATOOL -Continue nocturnal BiPAP Chronic unstageable pressure ulcer bilateral buttocks -Wound care is following -No signs of infection -Continue to monitor Morbid obesity -BMI is 46.5 -Recommend weight loss -Complicates treatment, prognosis, outcomes History of tobacco abuse -Encourage ongoing cessation DVT prophylaxis -SCDs -Apixaban on hold due to hematuria CODE STATUS -Full code is verified on admission Charges/Coding Visit Charges Inpatient E&M: 04126 Subs Hosp L2 09/05/23 1621 <Electronically signed by Vanessa Matias DO> Cosigner Signature (if applicable): CC: ~ Signed [facility] Work Phone: 1(189) 607-121104-21-2024 Progress note Author Palmira Johnson [facility] September 04, 2023 11:45am Note Date/Time September 04, 2023 8:0 2am [facility] Medical Records Department [address] [place] [address] Progress Note - Hospitalist 09/04/23 0802 MR#: [id number] Acct: [id number] Name: MELISSA ELIAS Rep #:[id number] : 1965 58 From: Palmira Johnson MD PCP: Dr. Peter Thayer, DO Status:ADM IN Location: [place] [address] 1 Reason for Visit Reason for Visit: Diagnoses Iron deficiency anemia secondary to blood loss (chronic) (08/31/23) Gross hematuria (08/31/23) Other retention of urine (08/31/23) Subjective Subjective ? Patient underwent repeat Cystoscopy, clot evacuation, fulguration of bleedingby Dr. Rosado this morning. Objective Data Objective Data Vital Signs: Vital Signs Temp Pulse Resp BP Pulse Ox O2 Del Method O2 Flow Rate 97.5 F L 92 12 145/88 H 100 CPAP 2 09/04/23 06:05 09/04/23 06:05 09/04/23 06:05 09/04/23 06:05 09/04/23 06:05 09/04/23 06:05 09/04/23 05:15 Oxygen Flow Rate (L/min) 2 Oxygen Delivery Method CPAP Weight: 134.5 kg Body Mass Index (BMI) 46.5 Intake & Output: Intake and Output for Last 24 Hours 09/02/23 09/03/23 09/04/23 23:59 23:59 23:59 Intake Total 1360 / 1360 3920 / 3920 120 / 120 Output Total 44361 / 57886 69334 / 21519 3300 / 3300 Balance -8690 / -8690 -6974 / -6974 -3180 / -3180 Lab / Micro Data 09/04/23 05:00 09/04/23 05:00 Labs: Laboratory Results - last 24 hr 09/03/23 07:58: POC Glucose 126 H 09/03/23 10:35: POC Glucose 143 H 09/03/23 12:20: POC Glucose 150 H 09/03/23 16:41: POC Glucose 167 H 09/03/23 21:41: POC Glucose 134 H 09/04/23 05:00: WBC 9.0, RBC 3.10 L, Hgb 7.3 L, Hct 25.0 L, MCV 80.6, MCH 23.5 L, MCHC 29.2 L, RDW Std Deviation 57.8 H, RDW Coeff of Mary 19.6 H, Plt Count 400,MPV 8.9, Immature Gran % (Auto) 0.800, Neut % (Auto) 51.4, Lymph % (Auto) 29.6, Hayes % (Auto) 9.3, Eos % (Auto) 8.3 H, Baso % (Auto) 0.6, Absolute Neuts (auto) 4.6, Absolute Lymphs (auto) 2.65, Nucleated RBC % 0.2, Sodium 140, Potassium 3.7, Chloride 107, Carbon Dioxide 28.0, Anion Gap 5, BUN 10, Creatinine 0.28 L, Estim Creat Clear Calc 398.67, Est GFR (MDRD) Af Amer 435, Est GFR (MDRD) Non-Af360, BUN/Creatinine Ratio 36.0 H, Glucose 109 H, Calcium 8.1 L 09/04/23 06:07: POC Glucose 128 H Micro: Microbiology 08/31/23 12:44 Urine Catheter - Catheter Urine Culture - Final Culture exhibits no growth. Physical Exam Narrative GENERAL: Patient appears to be in some discomfort HEENT: Atraumatic; normocephalic EYES; Anicteric, Normal Conjunctiva NECK; supple, normal thyroid, RESPIRATORY: Diminished to auscultation CARDIOVASCULAR: Regular S1 S2, GI: soft, normoactive bowel sounds, : Bartlett catheter in place with hematuria EXTREMITIES: edema, no clubbing, NEURO: Awake; paraplegic SKIN: Bilateral sacral decubitus PSYCH; Flat affect Assessment & Plan Assessment/Plan (1) Gross hematuria: (2) Clot retention of urine: (3) Blood loss anemia: PLAN: Plan Patient is a 58-year-old gentleman with history of L1 injury with subsequent paraplegia who has an indwelling Bartlett catheter was sent to the ED with hematuria as well as urinary retention 1. Acute urinary retention ? Secondary to hematuria. CT of the abdomen and pelvis obtained in the ED demonstrated distended urinary bladder with side density material along its dependent portion suggestive either clot versus a mass.. Continuous bladder irrigation initiated in the ED [facility]. Patient however had to be kept on the MedSurg floor pending transfer ? 09/02/2023. Patient still has dylan hematuria. Will continue with CBI pendingtransfer to tertiary care center. ? 09/03/2023;Patient underwent cystoscopy with evacuation of clot and cystogram by Dr. Rosado the day prior after patient developed acute urinary retention dueto clotting of his Bartlett catheter. We did obtain a bed for patient to be transferred to [facility] however the patient elected to stay. Plan is for patient to undergo repeat cystoscopy and clot evaluation on 09/04/2023 -09/04/2023; Patient underwent repeat Cystoscopy, clot evacuation, fulguration of bleeding by Dr. Rosado this morning. Readmitted to PCU with continuation ofCBI 2. Anemia Secondary to acute blood loss anemia as a result of patient hematuria. Transfused 1 unit PRBC hemoglobin still remains low at 5.9 and additional unit has been ordered ? 09/02/2023. Patient has received 3 unit PRBC transfusion following his admission hemoglobin up to 7.2 ? 09/03/2023; hemoglobin still down at 7.4. Patient has received a total of 4 unit PRBC since admission 3. 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 Supportive care 4. Chronic constipation I did continue patient bowel regimen 5. Chronic pain syndrome ? Patient home medication regimen including oxycodone morphine methocarbamol as well as gabapentin continue 6. History of VTE ? Patient is on apixaban held given patient active bleeding?hematuria 7. Class III obesity with BMI of 44.6 ? Complicating care weight loss encouraged 8. Diabetes mellitus type II -patient's oral hypoglycemics held. Placed on long acting insulin, Accu-Cheks a.c. and at bedtime and covered with sliding scale insulin 9. Obstructive sleep apnea ? Patient is on PAP therapy at night consistent use encouraged 10.. Unstageable sacral decubitus ulcer ? Present on admission consult placed to wound care nurse 11. DVT prophylaxis ? Patient was on apixaban being held given his active hematuria Time spent in the patient's overall evaluation,decision-making process, review of diagnostic data, adjustment of management, discussion with other providers, nursing nursing and ancillary staff involved in patient's care documentation, 35minutes Charges/Coding Visit Charges Inpatient E&M: 88912 Subs Hosp L2 09/04/23 1145 <Electronically signed by Palmira Johnson MD> Cosigner Signature (if applicable): CC: ~ Signed [facility] Work Phone: 1(839) 144-255704-21-2024 Procedure [facility] 09-03-2023 Progress note Author Palmira [facility] September 03, 2023 9:39am Note Date/Time September 03, 2023 7:2 4am [facility] Medical Records Department [address] [place] [address] Progress Note - Hospitalist 09/03/23723 MR#: [id number] Acct: [id number] Name: MELISSA ELIAS Rep #:[id number] : 1965 58 From: Palmira Johnson MD PCP: Dr. Peter Thayer, DO Status:ADM IN Location: [place] [address] Reason for Visit Reason for Visit: Diagnoses Iron deficiency anemia secondary to blood loss (chronic) (08/31/23) Gross hematuria (08/31/23) Other retention of urine (08/31/23) Subjective Subjective Patient underwent cystoscopy with evacuation of clot and cystogram by Dr. Rosado the day prior after patient developed acute urinary retention due to clotting of his Bartlett catheter. We did obtain a bed for patient to be transferred to [facility] however the patient elected to stay Objective Data Objective Data Vital Signs: Vital Signs Temp Pulse Resp BP Pulse Ox O2 Del Method O2 Flow Rate 98.3 F 110 H 17 138/78 H 94 Nasal Cannula 2 09/03/23 05:30 09/03/23 05:30 09/03/23 05:30 09/03/23 05:30 09/03/23 05:30 09/03/23 05:30 09/03/23 05:30 Oxygen Flow Rate (L/min) 2 Oxygen Delivery Method Nasal Cannula Weight: 143.5 kg Body Mass Index (BMI) 49.6 Intake & Output: Intake and Output for Last 24 Hours 09/01/23 09/02/23 09/03/23 23:59 23:59 23:59 Intake Total 3603 / 3603 1360 / 1360 680 / 680 Output Total 91462 / 49091 59052 / 56408 3965 / 3965 Balance -05194 / -85564 -8690 / -8690 -3285 / -3285 Lab / Micro Data 09/03/23 05:16 09/03/23 05:16 Labs: Laboratory Results - last 24 hr 09/01/23 02:50: Crossmatch See Detail 09/02/23 07:59: POC Glucose 136 H 09/02/23 08:25: Hgb 7.2 L, Hct 24.0 L 09/02/23 11:12: POC Glucose 161 H 09/02/23 16:26: WBC 10.8, RBC 3.40 L, Hgb 8.0 L, Hct 27.2 L, MCV 80.0, MCH 23.5 L, MCHC 29.4 L, RDW Std Deviation 56.2 H, RDW Coeff of Mary 19.2 H, Plt Count 393, MPV 9.1, Immature Gran % (Auto) 1.000 H, Neut % (Auto) 72.3 H, Lymph % (Auto) 14.8 L, Hayes % (Auto) 7.7, Eos % (Auto) 3.7, Baso % (Auto) 0.5, Absolute Neuts (auto) 7.8 H, Absolute Lymphs (auto) 1.59, Nucleated RBC % 0, Sodium 137, Potassium 4.9, Chloride 105, Carbon Dioxide 26.0, Anion Gap 6, BUN 21 H, Creatinine 0.50 L, Estim Creat Clear Calc 209.35, Est GFR (MDRD) Af Amer 222, Est GFR (MDRD) Non-Af 184, BUN/Creatinine Ratio 42.2 H, Glucose 144 H, Calcium 8.1 L 09/02/23 16:52: POC Glucose 123 H 09/02/23 18:19: POC Glucose 124 H 09/02/23 22:45: POC Glucose 125 H 09/03/23 00:43: Hgb 7.8 L, Hct 26.1 L 09/03/23 05:16: WBC 9.8, RBC 3.10 L, Hgb 7.4 L, Hct 24.8 L, MCV 80.0, MCH 23.9 L, MCHC 29.8 L, RDW Std Deviation 57.0 H, RDW Coeff of Mary 19.4 H, Plt Count 392,MPV 8.8, Immature Gran % (Auto) 0.600, Neut % (Auto) 63.6, Lymph % (Auto) 19.9, Hayes % (Auto) 10.0, Eos % (Auto) 5.5 H, Baso % (Auto) 0.4, Absolute Neuts (auto)6.3, Absolute Lymphs (auto) 1.96, Nucleated RBC % 0, Sodium 136, Potassium 4.3, Chloride 105, Carbon Dioxide 25.0, Anion Gap 6, BUN 14, Creatinine 0.40 L, EstimCreat Clear Calc 261.68, Est GFR (MDRD) Af Amer 288, Est GFR (MDRD) Non-Af 238, BUN/Creatinine Ratio 35.2 H, Glucose 145 H, Calcium 8.0 L 09/03/23 06:25: POC Glucose 143 H Micro: Microbiology 08/31/23 12:44 Urine Catheter - Catheter Urine Culture - Final Culture exhibits no growth. Physical Exam Narrative GENERAL: Patient appears to be in some discomfort HEENT: Atraumatic; normocephalic EYES; Anicteric, Normal Conjunctiva NECK; supple, normal thyroid, RESPIRATORY: Diminished to auscultation CARDIOVASCULAR: Regular S1 S2, GI: soft, normoactive bowel sounds, : Bartlett catheter in place with hematuria EXTREMITIES: edema, no clubbing, NEURO: Awake; paraplegic SKIN: Bilateral sacral decubitus PSYCH; Flat affect Assessment & Plan Assessment/Plan (1) Gross hematuria: (2) Clot retention of urine: (3) Blood loss anemia: PLAN: Plan Patient is a 58-year-old gentleman with history of L1 injury with subsequent paraplegia who has an indwelling Bartlett catheter was sent to the ED with hematuria as well as urinary retention 1. Acute urinary retention ? Secondary to hematuria. CT of the abdomen and pelvis obtained in the ED demonstrated distended urinary bladder with side density material along its dependent portion suggestive either clot versus a mass.. Continuous bladder irrigation initiated in the ED [facility]. Patient however had to be kept on the MedSurg floor pending transfer ? 09/02/2023. Patient still has dylan hematuria. Will continue with CBI pendingtransfer to tertiary care center. ? 09/03/2023;Patient underwent cystoscopy with evacuation of clot and cystogram by Dr. Rosado the day prior after patient developed acute urinary retention dueto clotting of his Bartlett catheter. We did obtain a bed for patient to be transferred to [facility] however the patient elected to stay. Plan is for patient to undergo repeat cystoscopy and clot evaluation on 09/04/2023 2. Anemia Secondary to acute blood loss anemia as a result of patient hematuria. Transfused 1 unit PRBC hemoglobin still remains low at 5.9 and additional unit has been ordered ? 09/02/2023. Patient has received 3 unit PRBC transfusion following his admission hemoglobin up to 7.2 ? 09/03/2023; hemoglobin still down at 7.4. Patient has received a total of 4 unit PRBC since admission 3. 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 Supportive care 4. Chronic constipation I did continue patient bowel regimen 5. Chronic pain syndrome ? Patient home medication regimen including oxycodone morphine methocarbamol as well as gabapentin continue 6. History of VTE ? Patient is on apixaban held given patient active bleeding?hematuria 7. Class III obesity with BMI of 44.6 ? Complicating care weight loss encouraged 8. Diabetes mellitus type II -patient's oral hypoglycemics held. Placed on long acting insulin, Accu-Cheks a.c. and at bedtime and covered with sliding scale insulin 9. Obstructive sleep apnea ? Patient is on PAP therapy at night consistent use encouraged 10.. Unstageable sacral decubitus ulcer ? Present on admission consult placed to wound care nurse 11. DVT prophylaxis ? Patient was on apixaban being held given his active hematuria Time spent in the patient's overall evaluation,decision-making process, review of diagnostic data, adjustment of management, discussion with other providers, nursing nursing and ancillary staff involved in patient's care documentation, 35minutes Charges/Coding Visit Charges Inpatient E&M: 60593 Subs Hosp L2 09/03/23 0939 <Electronically signed by Palmira Johnson MD> Cosigner Signature (if applicable): CC: ~ Signed [facility] Work Phone: 1(709) 674-336704-19-2024 Procedure [facility] 09-02-2023 Consult note Author Latha Rosado [facility] September 02, 2023 1:44pm Note Date/Time September 02, 2023 1:3 3pm [facility] Medical Records Department [address] [place] [address] Consultation 09/02/23 1328 MR#: [id number] Acct: [id number] Name: MELISSA ELIAS Rep #:[id number] : 1965 58 From: Latha Contreras PCP: Dr. Peter Thayer, DO Status:ADM IN Location: [facility] [id number] Assessment & Plan Assessment/Plan (1) Gross hematuria: (2) Clot retention of urine: (3) Blood loss anemia: PLAN: Plan To the operating room for cystoscopy, clot evacuation and fulguration of any bleeding. Informed consent has been obtained. Will plan to continue CBI after the procedure. Transfusion of blood per primary service, continue to follow hemoglobin closely Continue antibiotics. He will need longstanding urologic management after this acute situation is handled. He will need to follow-up with a urologist that sees male patients on a regular basis. HPI Consult Data Date of Consult: 09/02/23 HPI Narrative Reason for Consultation: Gross hematuria with clot retention HPI Narrative: MELISSA ELIAS, is a 58 M who presented from a nursing facility 2 days ago withgross hematuria. At this time he was awaiting transfer to another hospital facility and it has been 2 days. His Bartlett catheter at that time, the balloon was inflated in the prostatic fossa as seen on CT scan with a distended urinary bladder. His hemoglobin has been trending downward and he has been transfused 3units of blood so far. I was called earlier today as the continuous bladder irrigation no longer was running, and the patient was in excruciating pain, staff unable to flush the indwelling Bartlett. The patient is a paraplegic due to an accident. He has a chronic indwelling Bartlett catheter and has been dealing with recurrent urinary tract infections as well as intermittent Bartlett trauma. He also has a history of kidney stones. He is on anticoagulation chronically. He has a significant decubitus wound. He reports that he has never been seen by a urologist. Currently he is in significant pain from his abdomen. [facility] Medical History (Updated 09/02/23 @ 13:[address] Latha Rosado MD) Acute osteomyelitis of spine Anemia Bilateral pulmonary embolism Blood loss anemia BMI greater than 40 Cellulitis of leg without foot, right Clot retention of urine Community acquired pneumonia Former tobacco use H/o back surgery HTN (hypertension) Hypoglycemia Lymphedema BATOOL treated with BiPAP Paraplegia Pressure injury, unstageable, with eschar Rhabdomyolysis Type 2 diabetes mellitus Home Medications fluticasone propionate 50 mcg/actuation nasal spray,suspension (Flonase Allergy Relief) 1 spray intranasal DAILY shortness of breath 03/03/20 [History Last Taken Unknown] apixaban 5 mg tablet (Eliquis) 5 mg PO DAILY 07/29/23 [History Last Taken 08/31/23] docusate sodium 100 mg capsule (Colace) 100 mg PO DAILY 07/29/23 [History Last Taken 08/31/23] gabapentin 100 mg capsule 100 mg PO TID 07/29/23 [History Last Taken 08/31/23] insulin glargine 100 unit/mL subcutaneous solution (Lantus U-100 Insulin) 20 unit subcut DAILY diabetes mellitus type 2 07/29/23 [History Last Taken 08/31/23] insulin lispro 100 unit/mL subcutaneous solution 8 unit subcut TID 07/29/23 [History Last Taken 08/31/23] methocarbamol 500 mg tablet 1,000 mg PO TID PRN cramps 07/29/23 [History Last Taken 08/31/23] morphine 30 mg tablet,extended release 30 mg PO Q12H 07/29/23 [History Last Taken 08/31/23] oxycodone 10 mg tablet 10 mg PO 4X/DAY PRN pain 07/29/23 [History Last Taken 08/31/23] polyethylene glycol 3350 17 gram/dose oral powder (ClearLax) 17 g PO DAILY 07/29/23 [History Last Taken 07/29/23] pantoprazole 40 mg tablet,delayed release 40 mg PO DAILY 08/31/23 [History Last Taken 08/31/23] Allergy/AdvReac Type Severity Reaction Status Date / Time No Known Allergies Allergy Verified 08/31/23 11:11 Family History Mother Hypertension Hypotension Diabetes Arthritis Father Hypertension Hypotension Heart disease Status post double vessel coronary artery bypass angina Arthritis Grandfather Prostate cancer Grandmother Uterine cancer Surgical History H/O sinus surgery Hx of spinal surgery Social History household members: other details: parents housing: alf current occupational status: employed and retired Smoking Status: Former smoker alcohol intake: never substance use type: does not use do you feel safe at home: Yes ROS Constitutional Constitutional: Reports systems reviewed and no addt'l complaints, except as documented Eyes Eyes: Reports systems reviewed and no addt'l complaints, except as documented ENT HEENT: Reports systems reviewed and no addt'l complaints, except as documented Cardiovascular Cardiovascular: Reports abdominal bloating and abdominal pain; Denies chest pain Respiratory/Chest Respiratory/Chest: Denies cough Gastrointestinal Gastrointestinal: Reports abdominal pain and cramping; Denies nausea or vomiting Genitourinary Genitourinary: Reports abdominal discomfort, hematuria and urinary urgency Musculoskeletal Musculoskeletal: Reports systems reviewed and no addt'l complaints, except as documented Integumentary Integumentary: Reports skin ulcer Neurologic Neurologic: Reports other Details: paraplegic due to an accident. Psychiatric Psychiatric: Reports systems reviewed and no addt'l complaints, except as documented Endocrine Endocrinology: Reports systems reviewed and no addt'l complaints, except as documented Hematologic/Lymphatic Hematologic/Lymphatic: Reports systems reviewed and no addt'l complaints, exceptas documented Allergic/Immunologic Allergic/Immunologic: Reports systems reviewed and no addt'l complaints, except as documented Physical Exam Const alert and oriented x3 General Appearance: in distress Positive for moderate and anxious Nutritional Appearance: obese HEENT normocephalic, head/scalp atraumatic, hearing grossly normal bilaterally, external ears normal, external nose normal and moist oral mucous membranes Eyes General Eye: normal appearance of both eyes Neck supple General: trachea midline Chest inspection of chest normal Chest: symmetrical chest wall rise Resp normal respiratory effort and normal air movement Effort and Inspection: able to speak in complete sentences and symmetric chest movement Cardio Rate: tachycardic GI Inspection: abdominal distention, ostomy present and pannus present Palpation: soft and tender testes normal Narrative: Patient with a nondraining 22 [place] three-way catheter in place. I removed theFoley catheter and it was covered in obvious clot at the tip. I inserted a new 24 [place] three-way Bartlett catheter all the way to the hub. A small amount of red urine drained. I began to irrigate and it was obvious that the patient is likely full of clot. The catheter is soft and I cannot get it to empty. The decision was made to take the patient to the operating room for cystoscopy, clotevacuation fulguration of bleeding. Penis: other Buried Scrotum: testes descended bilaterally Extremity normal to inspection Skin no jaundice, no petechiae and no mottling Neuro oriented x3, CN's II-XII intact bilaterally and No moves all extremities Psych mental status grossly normal, thought process normal and cooperative Lab / Micro Data 09/02/23 08:25 09/02/23 04:22 Labs: Laboratory Results - last 24 hr 09/01/23 02:50: Crossmatch See Detail 09/01/23 02:50: Crossmatch See Detail 09/01/23 07:47: POC Glucose 161 H 09/01/23 11:33: POC Glucose 191 H 09/01/23 16:48: POC Glucose 171 H 09/01/23 17:52: Hgb 7.2 L, Hct 24.3 L 09/01/23 21:40: Hgb 7.6 L, Hct 24.9 L 09/01/23 21:51: POC Glucose 173 H 09/02/23 04:22: WBC 9.6, RBC 3.14 L, Hgb 7.4 L, Hct 24.4 L, MCV 77.7 L, MCH 23.6L, MCHC 30.3 L D, RDW Std Deviation 57.0 H, RDW Coeff of Mary 20.0 H, Plt Count 411, MPV 8.8, Immature Gran % (Auto) 0.600, Neut % (Auto) 64.7, Lymph % (Auto) 19.0, Hayes % (Auto) 10.4 H, Eos % (Auto) 4.7, Baso % (Auto) 0.6, Absolute Neuts (auto) 6.2, Absolute Lymphs (auto) 1.83, Nucleated RBC % 0, Sodium 134 L, Potassium 4.3, Chloride 102, Carbon Dioxide 27.0, Anion Gap 5, BUN 26 H, Creatinine 0.52 L, Estim Creat Clear Calc 204.39, Est GFR (MDRD) Af Amer 212, Est GFR (MDRD) Non-Af 175, BUN/Creatinine Ratio 50.1 H, Glucose 182 H, Calcium 8.5, Phosphorus 2.8, Magnesium 1.8 09/02/23 07:59: POC Glucose 136 H 09/02/23 08:25: Hgb 7.2 L, Hct 24.0 L 09/02/23 11:12: POC Glucose 161 H Micro: Microbiology 08/31/23 12:44 Urine Catheter - Catheter Urine Culture - Final Culture exhibits no growth. 09/02/23 1344 <Electronically signed by Latha Rosado MD> Cosigner Signature (if applicable): CC: Dr. Peter Thayer, DO~ Signed [facility] Work Phone: 1(428) 391-628604-19-2024 Progress note Author Palmira Johnson [facility] September 02, 2023 9:10am Note Date/Time September 02, 2023 8:5 9am [facility] Medical Records Department [address] [place] [address] Progress Note - Hospitalist 09/02/23 0859 MR#: [id number] Acct: [id number] Name: MELISSA ELIAS Rep #:[id number] : 1965 58 From: Palmira Johnson MD PCP: Dr. Peter Thayer DO Status:ADM IN Location: [place] [address] Reason for Visit Reason for Visit: Diagnoses Other retention of urine (08/31/23) Subjective Subjective Transferred to tertiary care center pending. Patient still has hematuria Objective Data Objective Data Vital Signs: Vital Signs Temp Pulse Resp BP Pulse Ox O2 Del Method O2 Flow Rate 98.6 F 102 H 18 141/82 H 94 Nasal Cannula 2 09/02/23 03:42 09/02/23 06:51 09/02/23 06:51 09/02/23 03:42 09/02/23 06:51 09/02/23 03:46 09/02/23 03:46 Oxygen Flow Rate (L/min) 2 Oxygen Delivery Method Nasal Cannula Weight: 128.6 kg Body Mass Index (BMI) 44.4 Intake & Output: Intake and Output for Last 24 Hours 08/31/23 09/01/23 09/02/23 23:59 23:59 23:59 Intake Total 1620 / 1620 3603 / 3603 120 / 120 Output Total 8600 / 8600 65573 / 16485 5900 / 5900 Balance -6980 / -6980 -28464 / -17054 -5780 / -5780 Lab / Micro Data 09/02/23 08:25 09/02/23 04:22 Labs: Laboratory Results - last 24 hr 09/01/23 02:50: Blood Type A POSITIVE, Antibody Screen POSITIVE, Antibody Identification ANTI-E, Crossmatch See Detail 09/01/23 02:50: Crossmatch See Detail 09/01/23 04:15: Diff Path Review Reviewed 09/01/23 07:47: POC Glucose 161 H 09/01/23 11:33: POC Glucose 191 H 09/01/23 16:48: POC Glucose 171 H 09/01/23 17:52: Hgb 7.2 L, Hct 24.3 L 09/01/23 21:40: Hgb 7.6 L, Hct 24.9 L 09/01/23 21:51: POC Glucose 173 H 09/02/23 04:22: WBC 9.6, RBC 3.14 L, Hgb 7.4 L, Hct 24.4 L, MCV 77.7 L, MCH 23.6L, MCHC 30.3 L D, RDW Std Deviation 57.0 H, RDW Coeff of Mary 20.0 H, Plt Count 411, MPV 8.8, Immature Gran % (Auto) 0.600, Neut % (Auto) 64.7, Lymph % (Auto) 19.0, Hayes % (Auto) 10.4 H, Eos % (Auto) 4.7, Baso % (Auto) 0.6, Absolute Neuts (auto) 6.2, Absolute Lymphs (auto) 1.83, Nucleated RBC % 0, Sodium 134 L, Potassium 4.3, Chloride 102, Carbon Dioxide 27.0, Anion Gap 5, BUN 26 H, Creatinine 0.52 L, Estim Creat Clear Calc 204.39, Est GFR (MDRD) Af Amer 212, Est GFR (MDRD) Non-Af 175, BUN/Creatinine Ratio 50.1 H, Glucose 182 H, Calcium 8.5, Phosphorus 2.8, Magnesium 1.8 09/02/23 07:59: POC Glucose 136 H 09/02/23 08:25: Hgb 7.2 L, Hct 24.0 L Physical Exam Narrative GENERAL: Patient appears to be in some discomfort HEENT: Atraumatic; normocephalic EYES; Anicteric, Normal Conjunctiva NECK; supple, normal thyroid, RESPIRATORY: Diminished to auscultation CARDIOVASCULAR: Regular S1 S2, GI: soft, normoactive bowel sounds, : Bartlett catheter in place with hematuria EXTREMITIES: edema, no clubbing, NEURO: Awake; paraplegic SKIN: Bilateral sacral decubitus PSYCH; Flat affect Assessment & Plan Assessment/Plan (1) Acute urinary retention: PLAN: Plan Patient is a 58-year-old gentleman with history of L1 injury with subsequent paraplegia who has an indwelling Bartlett catheter was sent to the ED with hematuria as well as urinary retention 1. Acute urinary retention ? Secondary to hematuria. CT of the abdomen and pelvis obtained in the ED demonstrated distended urinary bladder with side density material along its dependent portion suggestive either clot versus a mass.. Continuous bladder irrigation initiated in the ED [facility]. Patient however had to be kept on the MedSurg floor pending transfer ? 09/02/2023. Patient still has dylan hematuria. Will continue with CBI pendingtransfer to tertiary care center. 2. Anemia Secondary to acute blood loss anemia as a result of patient hematuria. Transfused 1 unit PRBC hemoglobin still remains low at 5.9 and additional unit has been ordered ? 09/02/2023. Patient has received 3 unit PRBC transfusion following his admission hemoglobin up to 7.2 3. 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 Supportive care 4. Chronic constipation I did continue patient bowel regimen 5. Chronic pain syndrome ? Patient home medication regimen including oxycodone morphine methocarbamol as well as gabapentin continue 6. History of VTE ? Patient is on apixaban held given patient active bleeding?hematuria 7. Class III obesity with BMI of 44.6 ? Complicating care weight loss encouraged 8. Diabetes mellitus type II -patient's oral hypoglycemics held. Placed on long acting insulin, Accu-Cheks a.c. and at bedtime and covered with sliding scale insulin 9. Obstructive sleep apnea ? Patient is on PAP therapy at night consistent use encouraged 10.. Unstageable sacral decubitus ulcer ? Present on admission consult placed to wound care nurse 11. DVT prophylaxis ? Patient was on apixaban being held given his active hematuria Time spent in the patient's overall evaluation,decision-making process, review of diagnostic data, adjustment of management, discussion with other providers, nursing nursing and ancillary staff involved in patient's care documentation, 35minutes Charges/Coding Visit Charges Inpatient E&M: 94253 Subs Hosp L2 04/19/24 0910 <Electronically signed by Palmira Johnson MD> Cosigner Signature (if applicable): CC: ~ Signed [facility] Work Phone: [phone]) 817-426404-18-2024 Progress note Author Palmira Johnson [facility] September 01, 2023 12:21pm Note Date/Time September 01, 2023 9:4 2am [facility] Medical Records Department [address] [place] [address] Progress Note - Hospitalist 09/01/2341 MR#: [id number] Acct: [id number] Name: MELISSA ELIAS Rep #:[id number] : 1965 58 From: Palmira Johnson MD PCP: Dr. Peter Thayer, DO Status:ADM IN Location: [place] [address] Reason for Visit Reason for Visit: Diagnoses Other retention of urine (08/31/23) Subjective Subjective Patient is a 58-year-old gentleman with history of L1 injury with subsequent paraplegia who has an indwelling Bartlett catheter was sent to the ED with hematuria as well as urinary reten Objective Data Objective Data Vital Signs: Vital Signs Temp Pulse Resp BP Pulse Ox O2 Del Method O2 Flow Rate 97.7 F L 109 H 18 128/73 H 98 Nasal Cannula 3 09/01/23 08:44 09/01/23 08:44 09/01/23 08:44 09/01/23 08:44 09/01/23 08:44 09/01/23 08:44 09/01/23 08:44 Oxygen Flow Rate (L/min) 3 Oxygen Delivery Method Nasal Cannula Weight: 129.2 kg Body Mass Index (BMI) 44.6 Intake & Output: Intake and Output for Last 24 Hours 08/30/23 08/31/23 09/01/23 23:59 23:59 23:59 Intake Total 1620 / 1620 3241 / 3241 Output Total 8600 / 8600 3900 / 3900 Balance -6980 / -6980 -659 / -659 Lab / Micro Data 09/01/23 04:15 09/01/23 04:15 Labs: Laboratory Results - last 24 hr 08/31/23 09:30: WBC 25.5 H, RBC 3.75 L, Hgb 8.2 L, Hct 28.3 L, MCV 75.5 L, MCH 21.9 L, MCHC 29.0 L, RDW Std Deviation 58.0 H, RDW Coeff of Mary 21.6 H, Plt Count 689 H, MPV 8.8, Immature Gran % (Auto) 0.900, Neut % (Auto) 61.5, Lymph % (Auto) 27.5, Hayes % (Auto) 7.4, Eos % (Auto) 2.0, Baso % (Auto) 0.7, Absolute Neuts (auto) 15.7 H, Absolute Lymphs (auto) 7.02 H, Nucleated RBC % 0, Diff PathReview Reviewed, Hypochromasia 1+, Anisocytosis 2+, Microcytosis 2+, Sodium 132 L, Potassium 4.8, Chloride 98, Carbon Dioxide 26.0, Anion Gap 8, BUN 26 H, Creatinine 1.15, Estim Creat Clear Calc 101.35, Est GFR (MDRD) Af Amer 85, Est GFR (MDRD) Non-Af 70, BUN/Creatinine Ratio 22.6 H, Glucose 211 H, Calcium 9.1 08/31/23 12:44: Urine Color Red, Urine Clarity Cloudy, Urine pH 7.0, Ur SpecificGravity 1.010, Urine Protein 500 H, Urine Glucose (UA) Normal, Urine Ketones 5 H, Urine Occult Blood 250 H, Urine Nitrite Negative, Urine Bilirubin Negative, Urine Urobilinogen Normal, Ur Leukocyte Esterase Negative, Urine RBC > 100 SEEN,Urine WBC 5-10 SEEN, Ur Squamous Epith Cells 0-5 SEEN, Urine Bacteria RARE, Urine Mucus 0 SEEN 08/31/23 20:39: Hgb 6.6 L, Hct 22.7 L 08/31/23 20:54: POC Glucose 177 H 09/01/23 00:08: Hgb 6.1 L, Hct 21.2 L 09/01/23 02:50: Blood Type A POSITIVE, Antibody Screen POSITIVE, Antibody Identification ANTI-E, Crossmatch See Detail 09/01/23 04:15: WBC 14.6 H, RBC 2.75 L, Hgb 5.9 L*, Hct 20.9 L, MCV 76.0 L, MCH 21.5 L, MCHC 28.2 L, RDW Std Deviation 58.7 H, RDW Coeff of Mary 21.4 H, Plt Count 445, MPV 9.1, Immature Gran % (Auto) 1.000 H, Neut % (Auto) 73.6 H, Lymph % (Auto) 13.9 L, Hayes % (Auto) 10.7 H, Eos % (Auto) 0.5, Baso % (Auto) 0.3, Absolute Neuts (auto) 10.8 H, Absolute Lymphs (auto) 2.03, Nucleated RBC % 0, Differential Comment SCANNED, Diff Path Review September foll, Platelet Estimate MOD INC, Anisocytosis 1+, Sodium 134 L, Potassium 5.3 H, Chloride 101, Carbon Dioxide 27.0, Anion Gap 6, BUN 37 H, Creatinine 1.35 H, Estim Creat Clear Calc 78.94, Est GFR (MDRD) Af Amer 70, Est GFR (MDRD) Non-Af 58 L, BUN/Creatinine Ratio 27.4 H, Glucose 181 H, Calcium 8.2 L, Total Bilirubin 0.60, AST 10 L, ALT 15 L, Alkaline Phosphatase 91, Total Protein 6.6, Albumin 2.2 L, Globulin 4.4 H,Albumin/Globulin Ratio 0.5 L Radiography Diagnostic Testing: Radiology Impression Abdomen/Pelvis CT 08/31/23 10:25 IMPRESSION: Small amount of perihepatic fluid. Distended urinary bladder with side density material along its dependent portion suggestive either clot versus a mass. A Bartlett catheter is seen with the balloon dilated in the prostatic urethra. Soft tissue defect in the medial aspects of both gluteus overlying the sacrum and coccyx. Electronically Signed: Meño Arrington MD at 10:59 EDT , Physical Exam Narrative GENERAL: Patient appears to be in some discomfort HEENT: Atraumatic; normocephalic EYES; Anicteric, Normal Conjunctiva NECK; supple, normal thyroid, RESPIRATORY: Diminished to auscultation CARDIOVASCULAR: Regular S1 S2, GI: soft, normoactive bowel sounds, : Bartlett catheter in place with hematuria EXTREMITIES: edema, no clubbing, NEURO: Awake; paraplegic SKIN: Bilateral sacral decubitus PSYCH; Flat affect Assessment & Plan Assessment/Plan (1) Acute urinary retention: PLAN: Plan Patient is a 58-year-old gentleman with history of L1 injury with subsequent paraplegia who has an indwelling Bartlett catheter was sent to the ED with hematuria as well as urinary retention 1. Acute urinary retention ? Secondary to hematuria. CT of the abdomen and pelvis obtained in the ED demonstrated distended urinary bladder with side density material along its dependent portion suggestive either clot versus a mass.. Continuous bladder irrigation initiated in the ED [facility]. Patient however had to be kept on the [facility] floor pending transfer 2. Anemia Secondary to acute blood loss anemia as a result of patient hematuria. Transfused 1 unit PRBC hemoglobin still remains low at 5.9 and additional unit has been ordered 3. 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 Supportive care 4. Chronic constipation I did continue patient bowel regimen 5. Chronic pain syndrome ? Patient home medication regimen including oxycodone morphine methocarbamol as well as gabapentin continue 6. History of VTE ? Patient is on apixaban held given patient active bleeding?hematuria 7. Class III obesity with BMI of 44.6 ? Complicating care weight loss encouraged 8. Diabetes mellitus type II -patient's oral hypoglycemics held. Placed on long acting insulin, Accu-Cheks a.c. and at bedtime and covered with sliding scale insulin 9. Obstructive sleep apnea ? Patient is on PAP therapy at night consistent use encouraged 10.. Unstageable sacral decubitus ulcer ? Present on admission consult placed to wound care nurse 11. DVT prophylaxis ? Patient was on apixaban being held given his active hematuria Time spent in the patient's overall evaluation,decision-making process, review of diagnostic data, adjustment of management, discussion with other providers, nursing nursing and ancillary staff involved in patient's care documentation, 55 Minutes Charges/Coding Visit Charges Inpatient E&M: 71187 Subs Hosp L3 09/01/23 1221 <Electronically signed by Palmira Johnson MD> Cosigner Signature (if applicable): CC: ~ Signed [facility] Work Phone: [phone] History and physical note Author Terri Nino [facility] August 31, 2023 8:42pm Note Date/Time August 31, 2023 4:5 2pm [facility] Medical Records Department [address] [place] [address] H&P Exam - Hospitalist 08/31/23 1651 MR#: [id number] Acct: [id number] Name: MELISSA ELIAS Rep #:[id number] : 1965 58 From: Terri Nino MD PCP: Dr. Peter Thayer, DO Status:ADM IN Location: [place] [address] HPI - General General Date of Admission: 08/31/23 Date of Service: 08/31/23 Chief Complaint: Urinary retention, hematuria. HPI Narrative The patient is a 58 y/o M w/ PMHx: Hx VTE, Diabetes mellitus type II, Chronic obstructive uropathy with chronic indwelling bartlett catheter, Chronic pain syndrome, GERD, Allergic rhinitis, Chronic BL LE lymphedema, Hx L1 injury and paraplegic status, BATOOL on BIPAP, Former tobacco use, Morbid obesity, HTN who presents to the [facility] ED on 08/31/23 from his nursing facility secondary to episodes of hematuria as well as blood clots in his Bartlett catheter unfortunatelyeventually this became obstructed and he did not have any urine output with significant onset of suprapubic pain and discomfort with bladder spasms rated 10out of 10 in severity with no nausea or emesis nor fevers or chills prompting EDevaluation. Workup in the ED included T96.8, heart rate 119, BP 120/79, respiratory rate 18, 97% on room air, CBC with WC 25.5, hemoglobin 8.2, MCV 75.5, platelets 689 with left shift and lymphocytosis, BMP with sodium 132, BUN/creatinine 26/1.15, glucose 211, urinalysis with red cloudy appearing urine,protein 500, ketone 5, occult blood 250, nitrate negative, leukocyte Estrace negative with greater than 100 urine RBCs with no marked bacteria noted, CT abdomen and pelvis with a small amount of perihepatic fluid, distended urinary bladder with side density material along its dependent portion suggestive of clot versus mass, Bartlett catheter seen with balloon dilated in the prostatic urethra, soft tissue defect the middle aspect of both gluteus overlying the sacrum and coccyx consistent with patient chronic decubitus ulcers. Several attempts were made for Bartlett catheter placement in the ED however they were unsuccessful and fortunately urology Dr. Persaud was able to come in and place Bartlett catheter but unfortunately he will be unavailable for consultation beyond this until 09/05/2023. Given patient neurological needs transfer was requested and patient was accepted at [facility] however bed availability was noted to be 09/01/2023 thus hospitalist service requested to admit patient given prolonged timeline for transition to tertiary facility. In the ED patient was administered 1 L normal saline, fentanyl 50 mcg IV times total of 4, Dilaudid 1 mg IV x 1, Merrem 1 g IV x 1, morphine 8 mg IV x 2, morphine 6 mg IV x 1, Zofran4 mg IV x 1. [facility] Medical History Acute osteomyelitis of spine Anemia Bilateral pulmonary embolism BMI greater than 40 Cellulitis of leg without foot, right Community acquired pneumonia Former tobacco use H/o back surgery HTN (hypertension) Hypoglycemia Lymphedema BATOOL treated with BiPAP Paraplegia Pressure injury, unstageable, with eschar Rhabdomyolysis Type 2 diabetes mellitus Home Medications fluticasone propionate 50 mcg/actuation nasal spray,suspension (Flonase Allergy Relief) 1 spray intranasal DAILY shortness of breath 03/03/20 [History Last Taken Unknown] apixaban 5 mg tablet (Eliquis) 5 mg PO DAILY 07/29/23 [History Last Taken 08/31/23] docusate sodium 100 mg capsule (Colace) 100 mg PO DAILY 07/29/23 [History Last Taken 08/31/23] gabapentin 100 mg capsule 100 mg PO TID 07/29/23 [History Last Taken 08/31/23] insulin glargine 100 unit/mL subcutaneous solution (Lantus U-100 Insulin) 20 unit subcut DAILY diabetes mellitus type 2 07/29/23 [History Last Taken 08/31/23] insulin lispro 100 unit/mL subcutaneous solution 8 unit subcut TID 07/29/23 [History Last Taken 08/31/23] methocarbamol 500 mg tablet 1,000 mg PO TID PRN cramps 07/29/23 [History Last Taken 08/31/23] morphine 30 mg tablet,extended release 30 mg PO Q12H 07/29/23 [History Last Taken 08/31/23] oxycodone 10 mg tablet 10 mg PO 4X/DAY PRN pain 07/29/23 [History Last Taken 08/31/23] polyethylene glycol 3350 17 gram/dose oral powder (ClearLax) 17 g PO DAILY 07/29/23 [History Last Taken 07/29/23] pantoprazole 40 mg tablet,delayed release 40 mg PO DAILY 08/31/23 [History Last Taken 08/31/23] Allergy/AdvReac Type Severity Reaction Status Date / Time No Known Allergies Allergy Verified 08/31/23 11:11 Family History Mother Hypertension Hypotension Diabetes Arthritis Father Hypertension Hypotension Heart disease Status post double vessel coronary artery bypass angina Arthritis Grandfather Prostate cancer Grandmother Uterine cancer Surgical History H/O sinus surgery Hx of spinal surgery Social History (Updated 08/31/23 @ 20:[address] Terri Nino MD) household members: other details: parents housing: alf current occupational status: employed and retired Smoking Status: Former smoker alcohol intake: never substance use type: does not use do you feel safe at home: Yes ROS ROS Narrative Admission Review of Systems: CONSTITUTIONAL: No weight loss, fever, chills, + weakness or fatigue. HEENT: Eyes: No visual loss, blurred vision, double vision or yellow sclerae. Ears, Nose, Throat: No hearing loss, sneezing, congestion, runny nose or sore throat. SKIN: + Decubitous ulcers coccyx, breakdown BL buttock, heels, various abrasions, bilateral lower extremity venous stasis skin changes. CARDIOVASCULAR: No chest pain, chest pressure or chest discomfort, palpitations,edema, orthopnea, syncopal events. RESPIRATORY: No shortness of breath, cough or sputum, wheezing, hemoptysis. GASTROINTESTINAL: No nausea, vomiting, diarrhea, abdominal pain, melena, BRBPR. GENITOURINARY: Chronic indwelling Bartlett catheter, hematuria, clots, suprapubic pain. NEUROLOGICAL: + Chronic significant debility with paraplegia and sensation decrease from the lumbar region and downward, no headache, dizziness, syncope, change in bowel control, seizure. MUSCULOSKELETAL: + muscle, back pain, joint pain or stiffness. HEMATOLOGIC: + anemia, easy bleeding or bruising. LYMPHATICS: No enlarged nodes. No history of splenectomy. PSYCHIATRIC: No history of depression or anxiety. ENDOCRINOLOGIC: No reports of sweating, cold or heat intolerance. No polyuria orpolydipsia. ALLERGIES: No history of asthma, hives, eczema or rhinitis. Vital Signs Vital Signs Vital Signs: 08/31/23 08:58 08/31/23 08:54 08/31/23 13:00 Temperature 96.8 F L Temperature Source Temporal Pulse Rate 119 H 113 H 120 H Respiratory Rate 18 20 H 16 Blood Pressure 120/79 145/77 H 114/72 Blood Pressure Mean 92 99 86 Pulse Ox 97 96 97 Oxygen Delivery Method Room Air Room Air Room Air Oxygen Flow Rate (L/min) 08/31/23 13:54 08/31/23 15:43 08/31/23 15:43 Temperature Temperature Source Pulse Rate 119 H 127 H Respiratory Rate 18 16 Blood Pressure 106/60 93/71 Blood Pressure Mean 75 78 Pulse Ox 93 83 99 Oxygen Delivery Method Room Air Room Air Nasal Cannula Oxygen Flow Rate (L/min) 3 08/31/23 16:10 Temperature 98.4 F Temperature Source Oral Pulse Rate 128 H Respiratory Rate 20 H Blood Pressure 103/69 Blood Pressure Mean 80 Pulse Ox 95 Oxygen Delivery Method Nasal Cannula Oxygen Flow Rate (L/min) 2 Weight Weight: 294 lb Body Mass Index (BMI) 39.9 Physical Exam Narrative Physical Examination: General: Awake, alert, oriented x > 3, cooperative, laying in the ED bed, fatigued appearing, notes still some suprapubic pain but improved w/ bartlett now functioning with CBI in place. Skin: Normal color, normal turgor, no icterus, no cyanosis except for various staged abrasions, ecchymoses, bilateral lower extremity venous stasis skin changes, intertrigo, lumbar and bilateral buttock chronic decubitus ulcers, chronic heel breakdown. HEENT: AT/NC, EOMI, PERRLA, dry MM, no carotid bruits or JVD noted; however, thickened neck makes evaluation difficult. Lungs: CTA bilaterally, moderate effort, mild decrease BL bases, no rales, ronchi or wheezing. Heart: Mildly tachycardic with regular rhythm; no gallop, rub audible. Abdomen: Soft, morbidly obese, NTTP of the abdomen but significant discomfort still with suprapubic palpation, distant BS, difficult to assess distention and HSM given habitus. Neurological: Bartlett catheter in place with hematuria noted in the bag with CBI running. Extremities: No cyanosis, no clubbing, significant bilateral lower extremity lymphedema with bilateral lower extremity stasis, see skin. Neurological: Patient awake, alert, oriented as noted, cognitive function improving but still not baseline intact; pupils equally reactive to light and accommodation, cranial nerves grossly normal, paraplegic with decreased sensation to lower extremities chronically, strength severely globally decreasedsecondary to acute presentation complicated by underlying history. Psychiatric: Affect appears fatigued, uncomfortable appearing, no acute evidenceof depressive or anxiety feelings. Results Lab / Micro Data 08/31/23 09:30 08/31/23 09:30 Labs: Laboratory Results - last 24 hr 08/31/23 09:30: WBC 25.5 H, RBC 3.75 L, Hgb 8.2 L, Hct 28.3 L, MCV 75.5 L, MCH 21.9 L, MCHC 29.0 L, RDW Std Deviation 58.0 H, RDW Coeff of Mary 21.6 H, Plt Count 689 H, MPV 8.8, Immature Gran % (Auto) 0.900, Neut % (Auto) 61.5, Lymph % (Auto) 27.5, Hayes % (Auto) 7.4, Eos % (Auto) 2.0, Baso % (Auto) 0.7, Absolute Neuts (auto) 15.7 H, Absolute Lymphs (auto) 7.02 H, Nucleated RBC % 0, Diff PathReview Reviewed, Hypochromasia 1+, Anisocytosis 2+, Microcytosis 2+, Sodium 132 L, Potassium 4.8, Chloride 98, Carbon Dioxide 26.0, Anion Gap 8, BUN 26 H, Creatinine 1.15, Estim Creat Clear Calc 101.35, Est GFR (MDRD) Af Amer 85, Est GFR (MDRD) Non-Af 70, BUN/Creatinine Ratio 22.6 H, Glucose 211 H, Calcium 9.1 08/31/23 12:44: Urine Color Red, Urine Clarity Cloudy, Urine pH 7.0, Ur SpecificGravity 1.010, Urine Protein 500 H, Urine Glucose (UA) Normal, Urine Ketones 5 H, Urine Occult Blood 250 H, Urine Nitrite Negative, Urine Bilirubin Negative, Urine Urobilinogen Normal, Ur Leukocyte Esterase Negative, Urine RBC > 100 SEEN,Urine WBC 5-10 SEEN, Ur Squamous Epith Cells 0-5 SEEN, Urine Bacteria RARE, Urine Mucus 0 SEEN Imaging Radiology Impression Abdomen/Pelvis CT 08/31/23 10:25 IMPRESSION: Small amount of perihepatic fluid. Distended urinary bladder with side density material along its dependent portion suggestive either clot versus a mass. A Bartlett catheter is seen with the balloon dilated in the prostatic urethra. Soft tissue defect in the medial aspects of both gluteus overlying the sacrum and coccyx. Electronically Signed: Meño Arrington MD at 10:59 EDT , Assessment & Plan Assessment/Plan (1) Acute urinary retention: PLAN: Plan The patient is a 58 y/o M w/ PMHx: Hx VTE, Diabetes mellitus type II, Chronic obstructive uropathy with chronic indwelling bartlett catheter, Chronic pain syndrome, GERD, Allergic rhinitis, Chronic BL LE lymphedema, Hx L1 injury and paraplegic status, BATOOL on BIPAP, Former tobacco use, Morbid obesity, HTN who presents to the [facility] ED on 08/31/23 from his nursing facility secondary to episodes of hematuria as well as blood clots in his Bartlett catheter unfortunatelyeventually this became obstructed and he did not have any urine output with significant onset of suprapubic pain and discomfort with bladder spasms rated 10out of 10 in severity with no nausea or emesis nor fevers or chills prompting EDevaluation. #1. Acute Urinary Retention w/ Chronic Indwelling Bartlett with notable Clots/Hematuria causing obstructive uropathy acute on chronic with concern for possible large bladder clot versus mass with significant leukocytosis but no overt evidence of complicated UTI however urine culture pending: Given no bed availability in a timely fashion at tertiary facility until transfer is completed will admit to medical surgical floor given stable vital signs, will continue new Bartlett catheter placed in the ED and continue bladder irrigation with as needed as needed manual irrigation as well, will cycle H&H's, continue to hold anticoagulation, will have as needed pain regimen above patient chronic,given significant leukocytosis and notable history will continue meropenem untilurine culture is obtained but urinalysis is not marked appearing. #2. History of L1 injury with paraplegic status complicated by chronic decubitus ulcers: Encourage aggressive offloading, frequent positional changes, as noted patient plan to transition to [facility] hopefully in the morning however if prolonged may need to involve wound care for ongoing close evaluation, PT/OT/case management consulted. #3. Chronic constipation: We will continue patient home bowel regimen. #4. Chronic pain syndrome: Patient with significant chronic back pain and debility complicated by his paraplegic status, will continue patient home chronic gabapentin, oxycodone, morphine oral regimen with as needed breakthroughregimen in addition. #5. History of VTE: Temporarily holding patient anticoagulation given #1, resume once clinically appropriate. #6. Former tobacco use: Encourage continued tobacco cessation. #7. Morbid Obesity: Weight loss and lifestyle changes encouraged. #8. GERD: We will continue patient on PPI. #9. BATOOL: BiPAP nightly. #10. Chronic bilateral lower extremity lymphedema/edema: Will place neck Charlee wraps. #11. Diabetes mellitus type II with chronic neuropathy: Hold oral home regimen,ADA diet, accu checks w/ ISS. #12. DVT prophylaxis: SCDs holding patient's anticoagulant therapy secondary toacute presentation #1. #13. CODE STATUS: Per facility paperwork patient full CODE STATUS. Charges/Coding Visit Charges Inpatient E&M: 56613 Init Hosp L3 08/31/232041 <Electronically signed by Terri Nino MD> Cosigner Signature (if applicable): CC: Dr. Terri Nino MD; Dr. Peter Thayer, DO~ Signed [facility] Work Phone: [phone]) [phone] Discharge summary Author Jose Maria Velazquez [facility] August 31, 2023 7:10pm Note Date/Time August 31, 2023 9:1 9am [facility] Medical Records Department [address] [place] [address] Emergency Department Summary 08/31/23 MR#: [id number] Acct: [id number] Name: MELISSA ELIAS FLORENCIO Rep #:[id number] : 1965 58 From: Ranjan Mistry MD PCP: Dr. Peter Thayer DO Status:ADM IN Location: [facility] [id number] Jose Maria Velazquez DO on 08/31/23 at 1910 Care of patient turned over to co awaiting admission and transfer to [facility]. Internal medicine physician Dr. Frazier did call from [facility] and accepted transfer of patient. He has had obtained an EKG given patient's tachycardia. EKG was performed which showed wide QRS tachycardia rate of 127 with right bundle branch block I suspect this is sinus rhythm. We will be awaiting a bed at [facility] but likely will be today. 08/31/231909<Electronically signed by Jose Maria Velazquez DO> Cosigner Signature (if applicable): cc: Dr. Peter Thayer DO ~* Signed HPI History of Present Illness Chief Complaint: Complaint Informant: patient Pain Onset: Today and Hours Context: Gradual Onset Timing: Continuous Maximum Severity: Moderate Narrative Narrative: 58-year-old male history of hypertension, diabetes and paraplegia. Also historyof DVTs on the blood thinner Xarelto. He has a chronic indwelling Bartlett catheter. Patient is from [facility]. States he has had blood in his urine and today does not feel like the bladder is draining and the catheter may be obstructed. Prior history of the same. He denies any nausea, vomiting or diarrhea. Prior similar symptoms: Yes Recent Illness/Hospitalization: Yes [facility] Medical History Acute osteomyelitis of spine Anemia Bilateral pulmonary embolism BMI greater than 40 Cellulitis of leg without foot, right Community acquired pneumonia Former tobacco use H/o back surgery HTN (hypertension) Hypoglycemia Lymphedema BATOOL treated with BiPAP Paraplegia Pressure injury, unstageable, with eschar Rhabdomyolysis Type 2 diabetes mellitus Home Medications fluticasone propionate 50 mcg/actuation nasal spray,suspension (Flonase Allergy Relief) 1 spray intranasal DAILY shortness of breath 03/03/20 [History Last Taken Unknown] apixaban 5 mg tablet (Eliquis) 5 mg PO DAILY 07/29/23 [History Last Taken 08/31/23] docusate sodium 100 mg capsule (Colace) 100 mg PO DAILY 07/29/23 [History Last Taken 08/31/23] gabapentin 100 mg capsule 100 mg PO TID 07/29/23 [History Last Taken 08/31/23] insulin glargine 100 unit/mL subcutaneous solution (Lantus U-100 Insulin) 20 unit subcut DAILY diabetes mellitus type 2 07/29/23 [History Last Taken 08/31/23] insulin lispro 100 unit/mL subcutaneous solution 8 unit subcut TID 07/29/23 [History Last Taken 08/31/23] methocarbamol 500 mg tablet 1,000 mg PO TID PRN cramps 07/29/23 [History Last Taken 08/31/23] morphine 30 mg tablet,extended release 30 mg PO Q12H 07/29/23 [History Last Taken 08/31/23] oxycodone 10 mg tablet 10 mg PO 4X/DAY PRN pain 07/29/23 [History Last Taken 08/31/23] polyethylene glycol 3350 17 gram/dose oral powder (ClearLax) 17 g PO DAILY 07/29/23 [History Last Taken 07/29/23] pantoprazole 40 mg tablet,delayed release 40 mg PO DAILY 08/31/23 [History Last Taken 08/31/23] Allergy/AdvReac Type Severity Reaction Status Date / Time No Known Allergies Allergy Verified 08/31/23 11:11 Family History Mother Hypertension Hypotension Diabetes Arthritis Father Hypertension Hypotension Heart disease Status post double vessel coronary artery bypass angina Arthritis Grandfather Prostate cancer Grandmother Uterine cancer Surgical History H/O sinus surgery Hx of spinal surgery Social History household members: other details: parents current occupational status: employed and retired Smoking Status: Former smoker alcohol intake: never substance use type: does not use do you feel safe at home: Yes ROS ROS ED ROS Narrative Gross hematuria. Review of Systems ROS Unobtainable: Denies due to encephalopathy Constitutional Constitutional ED: Denies chills or fever(s) Eyes Eyes: Denies blurry vision Cardiovascular Cardiovascular: Denies chest pain Respiratory/Chest Respiratory/Chest: Denies cough Gastrointestinal Gastrointestinal: Reports abdominal pain; Denies constipation, nausea or vomiting Genitourinary Genitourinary ED: Reports hematuria Musculoskeletal Musculoskeletal: Denies arthralgias Integumentary Denies abscess or rash Neurologic Neurologic: Denies headache(s) Psychiatric Psychiatric: Denies anxiety or depression Endocrine Endocrinology: Denies polydipsia or polyphagia Hematologic/Lymphatic Hematologic/Lymphatic: Denies lymphadenopathy Allergic/Immunologic Allergic/Immunologic ED: Denies mouth swelling, tongue swelling or urticaria EXAM Physical Exam Narrative Exam Narrative: 58-year-old male brought in by squad lying flat on his back in the bed. Vital signs are stable his pulse is elevated at 119. H EENT exam Opticrom react light. No facial droop. Mild dry mucous membranes. Neck nontender. Lungs clear to auscultation bilaterally. Heart tachycardic no appreciable murmur. Chest wall nontender. Abdomen soft. Suprapubic tenderness. Colostomy bag withgas in it. No peritoneal signs. Moving both upper extremities. Flaccid paralysis of the lower extremities. Neurologically is awake and alert. Answering questions and following commands. Paralysis of both lower extremitiesbut that is chronic. Const Vital Signs: 08/31/23 08:58 08/31/23 08:54 08/31/23 13:00 Temperature 96.8 F L Temperature Source Temporal Pulse Rate 119 H 113 H 120 H Respiratory Rate 18 20 H 16 Blood Pressure 120/79 145/77 H 114/72 Blood Pressure Mean 92 99 86 Pulse Ox 97 96 97 Oxygen Delivery Method Room Air Room Air Room Air Oxygen Flow Rate (L/min) 08/31/23 13:54 08/31/23 15:43 08/31/23 15:43 Temperature Temperature Source Pulse Rate 119 H 127 H Respiratory Rate 18 16 Blood Pressure 106/60 93/71 Blood Pressure Mean 75 78 Pulse Ox 93 83 99 Oxygen Delivery Method Room Air Room Air Nasal Cannula Oxygen Flow Rate (L/min) 3 08/31/23 16:10 Temperature 98.4 F Temperature Source Oral Pulse Rate 128 H Respiratory Rate 20 H Blood Pressure 103/69 Blood Pressure Mean 80 Pulse Ox 95 Oxygen Delivery Method Nasal Cannula Oxygen Flow Rate (L/min) 2 Positive well nourished, well developed and obese; Negative for cachectic, contractures or unkempt General Appearance ED: well developed; Negative for unkempt, cachectic, contractures, NAD or pallor Nutritional Appearance: obese; Negative for cachectic HEENT Reports dry mucous membranes; Denies moist mucous membranes normocephalic and atraumatic; Negative for trauma or tenderness Mouth ED: Yes dry mucous membranes Mouth: dry mucous membranes Eyes EOMs intact bilaterally General Eye ED: Negative for pale conjunctiva or scleral icterus Neck no lymphadenopathy, supple and no JVD General: Negative for tenderness Resp normal respiratory effort and clear to auscultation bilaterally Effort and Inspection: Negative for retractions Auscultation: Negative for rales, rhonchi or wheezes Cardio regular rhythm, S1 normal heart sound, S2 normal heart sound and no murmurs; Negative for regular rate Rate: tachycardic GI non-distended and no masses; Negative for non-tender Inspection: Negative for abdominal distention Auscultation: normoactive bowel sounds Palpation: soft and tender Extremity Negative for normal to inspection Extremity Narrative: Bilateral lower extremity paralysis. General Extremety ED: Negative for edema or pulses abnormal General Extremity: Negative for edema or pulses abnormal Neuro oriented x3, CN's II-XII intact bilaterally, No moves all extremities, No no focal motor deficits and No no sensory deficits noted Neuro Narrative: Bilateral lower extremity paralysis. Numbness. Sensorium / Orientation: alert, oriented to person and oriented to place; Negative for confused, lethargic or stuporous Motor Exam: strength abnormal; Negative for strength 5/5 throughout Psych Negative for mental status grossly normal Appearance: Negative for unkempt Mood & Affect: tearful Thought Process: normal thought process Skin General Skin Exam: Negative for jaundice or pallor Lesions: no lesions Rashes: no rashes MDM MDM MDM Narrative Medical decision making narrative: 58-year-old female from extended-care facility with gross hematuria and what sounds like urinary retention. Bartlett catheter be changed to a 22 [place] Bartlett. UA, urine culture and screening labs to be obtained. Concern for UTI versus gross hematuria for other causes. Nurses were able to place a coud? catheter. The largest they can get him was an18 [place]. They could not get a three-way catheter in. They have been irrigating and did remove significant number clots and grossly bloody urine. I still think he may have a bladder obstruction. They have tried bladder scanninghim and really do not see much with that. Were obtaining a CAT scan. He was given additional dose of morphine and Jarvis will be given a second dose of morphine for his pain. I spoke to Dr. Roshan Persaud on-call for urology. He came down removed the Bartlett catheter and replaced it with another 22 [place] irrigating catheter. It seems to be working better. He thinks the initial catheter may have been kinkedor rolled back on itself. Now gotten 1-2+ liters of bloody fluid out. Will continue to irrigate the patient. We are awaiting a urinalysis. Dr. Rankin is going out of town I will not be able to accept the patient in consult. Multiple repeat exams currently at 430 the patient has basely continuously running irrigation. If that stops it clots off the 22 [place] Bartlett catheter. He needs continuous irrigation to try to resolve the bleeding and the clot in his bladder. He cannot be discharged with this need. Hospitalist on page for admission. We currently do not have urology available. But none of the local hospitals have beds so the hospitalist here will admit. I am trying to arrange the patient to be on a wait list at one of the larger facilities. I did speak to [facility]. Their facilities currently are full and have no available beds. Patient will be placed on a wait list for [facility]. History & Record Review Discussion w/independent historian: Patient Additional record(s) reviewed:: Prior inpatient record, Prior outpatient record and Prior labs Lab Data Attestation: I reviewed the patient's lab results. Lab results narrative: CBC shows no elevated white count 25.5. H&H 8.2 and 28. Platelets 689. Electrolytes showed a sodium 132. Gap of 8. BUN 26 creatinine 1.15. Glucose 211. Urinalysis shows no nitrates. Only rare bacteria.. 100 red cells was consistent with his gross hematuria 5-10 white cells. Urine culture also be sent. Labs: Laboratory Results - last 24 hr 08/31/23 08/31/23 09:30 12:44 WBC 25.5 H RBC 3.75 L Hgb 8.2 L Hct 28.3 L MCV 75.5 L MCH 21.9 L MCHC 29.0 L RDW Std Deviation 58.0 H RDW Coeff of Mary 21.6 H Plt Count 689 H MPV 8.8 Immature Gran % (Auto) 0.900 Neut % (Auto) 61.5 Lymph % (Auto) 27.5 Hayes % (Auto) 7.4 Eos % (Auto) 2.0 Baso % (Auto) 0.7 Absolute Neuts (auto) 15.7 H Absolute Lymphs (auto) 7.02 H Nucleated RBC % 0 [address] Review Reviewed Hypochromasia 1+ Anisocytosis 2+ Microcytosis 2+ Sodium 132 L Potassium 4.8 Chloride 98 Carbon Dioxide 26.0 Anion Gap 8 BUN 26 H Creatinine 1.15 Estim Creat Clear Calc 101.35 Est GFR (MDRD) Af Amer 85 Est GFR (MDRD) Non-Af 70 BUN/Creatinine Ratio 22.6 H Glucose 211 H Calcium 9.1 Urine Color Red Urine Clarity Cloudy Urine pH 7.0 Ur Specific [place] 1.010 Urine Protein 500 H Urine Glucose (UA) Normal Urine Ketones 5 H Urine Occult Blood 250 H Urine Nitrite Negative Urine Bilirubin Negative Urine Urobilinogen Normal Ur Leukocyte Esterase Negative Urine RBC > 100 SEEN Urine WBC 5-10 SEEN Ur Squamous Epith Cells 0-5 SEEN Urine Bacteria RARE Urine Mucus 0 SEEN Radiography Diagnostic Testing: Clinical Impression(s) from Imaging Studies Abdomen/Pelvis CT 08/31/23 10:25 IMPRESSION: Small amount of perihepatic fluid. Distended urinary bladder with side density material along its dependent portion suggestive either clot versus a mass. A Bartlett catheter is seen with the balloon dilated in the prostatic urethra. Soft tissue defect in the medial aspects of both gluteus overlying the sacrum and coccyx. Electronically Signed: Meño Arrington MD at 10:59 EDT Reading Location ID and State: [address] [place] [address] , Service support , Critical Care Time Critical Care Time: Yes Critical care time (excluding procedures): 30-74 minutes, Including time spent:,Discussing w/Patient &/or Family/Bank Vault Attendant, Discussing w/Consultants, ArrangingAdmission or Transfer, Performing Direct Patient Care at Bedside and - (40 min) Discharge Plan Dx/Rx/DC Orders Clinical Impression: History of deep vein thrombosis, History of paraplegia, Chronic anticoagulation, Gross hematuria, History of diabetes mellitus, Chronic anemia, Acute urinary retention Disposition Disposition: Acute Care [facility] What to do if you have Problems For any increased pain, shortness of breath, bleeding, nausea or vomiting, chestpain, or any unexpected problems, contact your Primary Care Provider. Call [facility] ([phone]) or report to the closest Emergency Room. Call 911 if necessary. 08/31/231731 <Electronically signed by Ranjan Mistry MD> Cosigner Signature (if applicable): CC: Dr. Peter Thayer DO ~ Signed [facility] Work Phone: 1(725) 159-473704-17-2024 Discharge summary Author Jose Maria Velazquez [facility] August 31, 2023 7:10pm Note Date/Time August 31, 2023 9:1 9am [facility] Medical Records Department [address] [place] [address] Emergency Department Summary 08/31/23 MR#: [id number] Acct: [id number] Name: MELISSA ELIAS Rep #:[id number] : 1965 58 From: Ranjan Mistry MD PCP: Dr. Peter Thayer DO Status:ADM IN Location: [place] [address] [address] Jose Maria Velazquez DO on 08/31/23 at 1910 Care of patient turned over to co awaiting admission and transfer to [facility]. Internal medicine physician Dr. Frazier did call from [facility] and accepted transfer of patient. He has had obtained an EKG given patient's tachycardia. EKG was performed which showed wide QRS tachycardia rate of 127 with right bundle branch block I suspect this is sinus rhythm. We will be awaiting a bed at [facility] but likely will be today. 08/31/231909<Electronically signed by Jose Maria Velazquez DO> Cosigner Signature (if applicable): cc: Dr. Peter Thayer DO ~* Signed HPI History of Present Illness Chief Complaint: Complaint Informant: patient Pain Onset: Today and Hours Context: Gradual Onset Timing: Continuous Maximum Severity: Moderate Narrative Narrative: 58-year-old male history of hypertension, diabetes and paraplegia. Also historyof DVTs on the blood thinner Xarelto. He has a chronic indwelling Bartlett catheter. Patient is from extended-care facility. States he has had blood in his urine and today does not feel like the bladder is draining and the catheter may be obstructed. Prior history of the same. He denies any nausea, vomiting or diarrhea. Prior similar symptoms: Yes Recent Illness/Hospitalization: Yes [facility] Medical History Acute osteomyelitis of spine Anemia Bilateral pulmonary embolism BMI greater than 40 Cellulitis of leg without foot, right Community acquired pneumonia Former tobacco use H/o back surgery HTN (hypertension) Hypoglycemia Lymphedema BATOOL treated with BiPAP Paraplegia Pressure injury, unstageable, with eschar Rhabdomyolysis Type 2 diabetes mellitus Home Medications fluticasone propionate 50 mcg/actuation nasal spray,suspension (Flonase Allergy Relief) 1 spray intranasal DAILY shortness of breath 03/03/20 [History Last Taken Unknown] apixaban 5 mg tablet (Eliquis) 5 mg PO DAILY 07/29/23 [History Last Taken 08/31/23] docusate sodium 100 mg capsule (Colace) 100 mg PO DAILY 07/29/23 [History Last Taken 08/31/23] gabapentin 100 mg capsule 100 mg PO TID 07/29/23 [History Last Taken 08/31/23] insulin glargine 100 unit/mL subcutaneous solution (Lantus U-100 Insulin) 20 unit subcut DAILY diabetes mellitus type 2 07/29/23 [History Last Taken 08/31/23] insulin lispro 100 unit/mL subcutaneous solution 8 unit subcut TID 07/29/23 [History Last Taken 08/31/23] methocarbamol 500 mg tablet 1,000 mg PO TID PRN cramps 07/29/23 [History Last Taken 08/31/23] morphine 30 mg tablet,extended release 30 mg PO Q12H 07/29/23 [History Last Taken 08/31/23] oxycodone 10 mg tablet 10 mg PO 4X/DAY PRN pain 07/29/23 [History Last Taken 08/31/23] polyethylene glycol 3350 17 gram/dose oral powder (ClearLax) 17 g PO DAILY 07/29/23 [History Last Taken 07/29/23] pantoprazole 40 mg tablet,delayed release 40 mg PO DAILY 08/31/23 [History Last Taken 08/31/23] Allergy/AdvReac Type Severity Reaction Status Date / Time No Known Allergies Allergy Verified 08/31/23 11:11 Family History Mother Hypertension Hypotension Diabetes Arthritis Father Hypertension Hypotension Heart disease Status post double vessel coronary artery bypass angina Arthritis Grandfather Prostate cancer Grandmother Uterine cancer Surgical History H/O sinus surgery Hx of spinal surgery Social History household members: other details: parents current occupational status: employed and retired Smoking Status: Former smoker alcohol intake: never substance use type: does not use do you feel safe at home: Yes ROS ROS ED ROS Narrative Gross hematuria. Review of Systems ROS Unobtainable: Denies due to encephalopathy Constitutional Constitutional ED: Denies chills or fever(s) Eyes Eyes: Denies blurry vision Cardiovascular Cardiovascular: Denies chest pain Respiratory/Chest Respiratory/Chest: Denies cough Gastrointestinal Gastrointestinal: Reports abdominal pain; Denies constipation, nausea or vomiting Genitourinary Genitourinary ED: Reports hematuria Musculoskeletal Musculoskeletal: Denies arthralgias Integumentary Denies abscess or rash Neurologic Neurologic: Denies headache(s) Psychiatric Psychiatric: Denies anxiety or depression Endocrine Endocrinology: Denies polydipsia or polyphagia Hematologic/Lymphatic Hematologic/Lymphatic: Denies lymphadenopathy Allergic/Immunologic Allergic/Immunologic ED: Denies mouth swelling, tongue swelling or urticaria EXAM Physical Exam Narrative Exam Narrative: 58-year-old male brought in by squad lying flat on his back in the bed. Vital signs are stable his pulse is elevated at 119. H EENT exam Opticrom react light. No facial droop. Mild dry mucous membranes. Neck nontender. Lungs clear to auscultation bilaterally. Heart tachycardic no appreciable murmur. Chest wall nontender. Abdomen soft. Suprapubic tenderness. Colostomy bag withgas in it. No peritoneal signs. Moving both upper extremities. Flaccid paralysis of the lower extremities. Neurologically is awake and alert. Answering questions and following commands. Paralysis of both lower extremitiesbut that is chronic. Const Vital Signs: 08/31/23 08:58 08/31/23 08:54 08/31/23 13:00 Temperature 96.8 F L Temperature Source Temporal Pulse Rate 119 H 113 H 120 H Respiratory Rate 18 20 H 16 Blood Pressure 120/79 145/77 H 114/72 Blood Pressure Mean 92 99 86 Pulse Ox 97 96 97 Oxygen Delivery Method Room Air Room Air Room Air Oxygen Flow Rate (L/min) 08/31/23 13:54 08/31/23 15:43 08/31/23 15:43 Temperature Temperature Source Pulse Rate 119 H 127 H Respiratory Rate 18 16 Blood Pressure 106/60 93/71 Blood Pressure Mean 75 78 Pulse Ox 93 83 99 Oxygen Delivery Method Room Air Room Air Nasal Cannula Oxygen Flow Rate (L/min) 3 08/31/23 16:10 Temperature 98.4 F Temperature Source Oral Pulse Rate 128 H Respiratory Rate 20 H Blood Pressure 103/69 Blood Pressure Mean 80 Pulse Ox 95 Oxygen Delivery Method Nasal Cannula Oxygen Flow Rate (L/min) 2 Positive well nourished, well developed and obese; Negative for cachectic, contractures or unkempt General Appearance ED: well developed; Negative for unkempt, cachectic, contractures, NAD or pallor Nutritional Appearance: obese; Negative for cachectic HEENT Reports dry mucous membranes; Denies moist mucous membranes normocephalic and atraumatic; Negative for trauma or tenderness Mouth ED: Yes dry mucous membranes Mouth: dry mucous membranes Eyes EOMs intact bilaterally General Eye ED: Negative for pale conjunctiva or scleral icterus Neck no lymphadenopathy, supple and no JVD General: Negative for tenderness Resp normal respiratory effort and clear to auscultation bilaterally Effort and Inspection: Negative for retractions Auscultation: Negative for rales, rhonchi or wheezes Cardio regular rhythm, S1 normal heart sound, S2 normal heart sound and no murmurs; Negative for regular rate Rate: tachycardic GI non-distended and no masses; Negative for non-tender Inspection: Negative for abdominal distention Auscultation: normoactive bowel sounds Palpation: soft and tender Extremity Negative for normal to inspection Extremity Narrative: Bilateral lower extremity paralysis. General Extremety ED: Negative for edema or pulses abnormal General Extremity: Negative for edema or pulses abnormal Neuro oriented x3, CN's II-XII intact bilaterally, No moves all extremities, No no focal motor deficits and No no sensory deficits noted Neuro Narrative: Bilateral lower extremity paralysis. Numbness. Sensorium / Orientation: alert, oriented to person and oriented to place; Negative for confused, lethargic or stuporous Motor Exam: strength abnormal; Negative for strength 5/5 throughout Psych Negative for mental status grossly normal Appearance: Negative for unkempt Mood & Affect: tearful Thought Process: normal thought process Skin General Skin Exam: Negative for jaundice or pallor Lesions: no lesions Rashes: no rashes MDM MDM MDM Narrative Medical decision making narrative: 58-year-old female from extended-care facility with gross hematuria and what sounds like urinary retention. Bartlett catheter be changed to a 22 [place] Bartlett. UA, urine culture and screening labs to be obtained. Concern for UTI versus gross hematuria for other causes. Nurses were able to place a coud? catheter. The largest they can get him was an18 [place]. They could not get a three-way catheter in. They have been irrigating and did remove significant number clots and grossly bloody urine. I still think he may have a bladder obstruction. They have tried bladder scanninghim and really do not see much with that. Were obtaining a CAT scan. He was given additional dose of morphine and Jarvis will be given a second dose of morphine for his pain. I spoke to Dr. Roshan Persaud on-call for urology. He came down removed the Bartlett catheter and replaced it with another 22 [place] irrigating catheter. It seems to be working better. He thinks the initial catheter may have been kinkedor rolled back on itself. Now gotten 1-2+ liters of bloody fluid out. Will continue to irrigate the patient. We are awaiting a urinalysis. Dr. Rankin is going out of town I will not be able to accept the patient in consult. Multiple repeat exams currently at 430 the patient has basely continuously running irrigation. If that stops it clots off the 22 [place] Bartlett catheter. He needs continuous irrigation to try to resolve the bleeding and the clot in his bladder. He cannot be discharged with this need. Hospitalist on page for admission. We currently do not have urology available. But none of the local hospitals have beds so the hospitalist here will admit. I am trying to arrange the patient to be on a wait list at one of the larger facilities. I did speak to [facility]. Their facilities currently are full and have no available beds. Patient will be placed on a wait list for [facility]. History & Record Review Discussion w/independent historian: Patient Additional record(s) reviewed:: Prior inpatient record, Prior outpatient record and Prior labs Lab Data Attestation: I reviewed the patient's lab results. Lab results narrative: CBC shows no elevated white count 25.5. H&H 8.2 and 28. Platelets 689. Electrolytes showed a sodium 132. Gap of 8. BUN 26 creatinine 1.15. Glucose 211. Urinalysis shows no nitrates. Only rare bacteria.. 100 red cells was consistent with his gross hematuria 5-10 white cells. Urine culture also be sent. Labs: Laboratory Results - last 24 hr 08/31/23 08/31/23 09:30 12:44 WBC 25.5 H RBC 3.75 L Hgb 8.2 L Hct 28.3 L MCV 75.5 L MCH 21.9 L MCHC 29.0 L RDW Std Deviation 58.0 H RDW Coeff of Mary 21.6 H Plt Count 689 H MPV 8.8 Immature Gran % (Auto) 0.900 Neut % (Auto) 61.5 Lymph % (Auto) 27.5 Hayes % (Auto) 7.4 Eos % (Auto) 2.0 Baso % (Auto) 0.7 Absolute Neuts (auto) 15.7 H Absolute Lymphs (auto) 7.02 H Nucleated RBC % 0 Diff Path Review Reviewed Hypochromasia 1+ Anisocytosis 2+ Microcytosis 2+ Sodium 132 L Potassium 4.8 Chloride 98 Carbon Dioxide 26.0 Anion Gap 8 BUN 26 H Creatinine 1.15 Estim Creat Clear Calc 101.35 Est GFR (MDRD) Af Amer 85 Est GFR (MDRD) Non-Af 70 BUN/Creatinine Ratio 22.6 H Glucose 211 H Calcium 9.1 Urine Color Red Urine Clarity Cloudy Urine pH 7.0 Ur Specific [place] 1.010 Urine Protein 500 H Urine Glucose (UA) Normal Urine Ketones 5 H Urine Occult Blood 250 H Urine Nitrite Negative Urine Bilirubin Negative Urine Urobilinogen Normal Ur Leukocyte Esterase Negative Urine RBC > 100 SEEN Urine WBC 5-10 SEEN Ur Squamous Epith Cells 0-5 SEEN Urine Bacteria RARE Urine Mucus 0 SEEN Radiography Diagnostic Testing: Clinical Impression(s) from Imaging Studies Abdomen/Pelvis CT 08/31/23 10:25 IMPRESSION: Small amount of perihepatic fluid. Distended urinary bladder with side density material along its dependent portion suggestive either clot versus a mass. A Bartlett catheter is seen with the balloon dilated in the prostatic urethra. Soft tissue defect in the medial aspects of both gluteus overlying the sacrum and coccyx. Electronically Signed: Meño Arrington MD at 10:59 EDT , Critical Care Time Critical Care Time: Yes Critical care time (excluding procedures): 30-74 minutes, Including time spent:,Discussing w/Patient &/or Family/Bank Vault Attendant, Discussing w/Consultants, ArrangingAdmission or Transfer, Performing Direct Patient Care at Bedside and - (40 min) Discharge Plan Dx/Rx/DC Orders Clinical Impression: History of deep vein thrombosis, History of paraplegia, Chronic anticoagulation, Gross hematuria, History of diabetes mellitus, Chronic anemia, Acute urinary retention Disposition Disposition: [facility] What to do if you have Problems For any increased pain, shortness of breath, bleeding, nausea or vomiting, chestpain, or any unexpected problems, contact your Primary Care Provider. Call [facility] ([phone]) or report to the closest Emergency Room. Call 911 if necessary. 08/31/23 1732 <Electronically signed by Ranjan Mistry MD> Cosigner Signature (if applicable): CC: Dr. Peter Thayer, ~ Signed [facility] Work Phone: 1(354) 683-307003-28-2024 [facility]03-28-2024 [facility]03-27-2024 [facility]03-26-2024 [facility]03-25-2024 [facility]03-25-2024 [facility] 08-08-2023 [facility]03-24-2024 [facility]03-23-2024 [facility]03-22-2024 [facility]03-22-2024 [facility]03-21-2024 [facility]03-21-2024 [facility] 08-03-2023 [facility]03-20-2024 NoteHNO ID: [id number] Author: PETER MARTINS, KATHRYN Service: Nursing Author Type: Registered Nurse Type: Nursing Progress Note Filed: 08/03/2023 14:41 Note Text: Other: 1415: PACU PA-C updated on patient's BP. Patient asymptomatic. 250mL bolus ordered.[facility]03-20-2024 [facility]03-19-2024 Note [facility]19[facility]03-18-2024 [facility]03-18-2024 [facility] 08-01-2023 [facility]03-17-2024 [facility]03-16-2024 Discharge summary Author Tolu Sharma [facility] July 29, 2023 10:07pm Note Date/Time July 29, 2023 8:2 2pm [facility] Medical Records Department [address] [place] [address] Emergency Department Summary 07/29/23 MR#: [id number] Acct: [id number] Name: MELISSA ELIAS Rep #:[id number] : 1965 58 From: Tolu Sharma MD PCP: Dr. Peter Thayer, DO Status:REG ER Location: ED HPI History of Present Illness Chief Complaint: Wound Detail of Chief Complaint: Infected sacral decubitus Informant: patient, family and PCP Onset/Context/Timing Onset: Days Context: Sudden Onset Timing: Continuous Quality: Infected sacral decubitus. Location: Sacral decubitus Current Severity: Moderate Maximum Severity: Moderate Worsened by: Patient is paraplegic Relieved by: Nothing Associated Symptoms Associated Symptoms: Fever, objective 100.0 ?F) chills drainage from wound and odor Narrative Narrative: Patient is a 58-year-old male. He had a sacral decubitus several months ago. He required transfer to outside facility because plastics was not available. Patient had a wound VAC. The wound VAC was removed because of bleeding. He is on apixaban. Family member took a picture of decubitus July 25. This was compared to picture obtained June. There was significant change. There is been progression over the last 3 days based on my viewing of the wound today. Patient states he does not feel well. He feels weak. He was seen by visiting nurse was concerned that the wound has gotten worse. He is presently on no antibiotic. Prior similar symptoms: Yes Recent Illness/Hospitalization: Yes PFSH [facility] Medical History Acute osteomyelitis of spine Anemia Bilateral pulmonary embolism BMI greater than 40 Cellulitis of leg without foot, right Community acquired pneumonia Former tobacco use H/o back surgery HTN (hypertension) Hypoglycemia Lymphedema BATOOL treated with BiPAP Paraplegia Pressure injury, unstageable, with eschar Rhabdomyolysis Type 2 diabetes mellitus Home Medications diclofenac sodium 50 mg tablet,delayed release 50 mg PO DAILY 03/03/20 [History Last Taken 07/29/23] fluticasone propionate 50 mcg/actuation nasal spray,suspension (Flonase Allergy Relief) 1 spray intranasal DAILY shortness of breath 03/03/20 [History Last Taken Unknown] apixaban 5 mg tablet (Eliquis) 5 mg PO BID 07/29/23 [History Last Taken 07/29/23] docusate sodium 100 mg capsule (Colace) 100 mg PO DAILY 07/29/23 [History Last Taken Unknown] fluconazole 200 mg tablet 200 mg PO DAILY 07/29/23 [History Last Taken 07/29/23] gabapentin 100 mg capsule 100 mg PO TID 07/29/23 [History Last Taken 07/29/23] guaifenesin 200 mg tablet 200 mg PO Q4H PRN congestion 07/29/23 [History Last Taken 07/29/23] insulin glargine 100 unit/mL subcutaneous solution (Lantus U-100 Insulin) 20 unit subcut DAILY diabetes mellitus type 2 07/29/23 [History Last Taken 07/29/23] insulin lispro 100 unit/mL subcutaneous solution 8 unit subcut TID 07/29/23 [History Last Taken 07/29/23] linezolid 600 mg tablet 600 mg PO BID 07/29/23 [History Last Taken 07/29/23] methocarbamol 500 mg tablet 1,000 mg PO TID PRN cramps 07/29/23 [History Last Taken 07/29/23] morphine 30 mg tablet,extended release 30 mg PO Q12H 07/29/23 [History Last Taken 07/29/23] oxycodone 10 mg tablet 10 mg PO 4X/DAY PRN pain 07/29/23 [History Last Taken 07/29/23] polyethylene glycol 3350 17 gram/dose oral powder (ClearLax) 17 g PO DAILY 07/29/23 [History Last Taken 07/29/23] semaglutide 1 mg/dose (4 mg/3 mL) subcutaneous pen injector (Ozempic) 1 mg subcut MO 07/29/23 [History Last Taken 07/18/23] Allergy/AdvReac Type Severity Reaction Status Date / Time No Known Allergies Allergy Verified 11/15/22 18:01 Family History Mother Hypertension Hypotension Diabetes Arthritis Father Hypertension Hypotension Heart disease Status post double vessel coronary artery bypass angina Arthritis Grandfather Prostate cancer Grandmother Uterine cancer Surgical History H/O sinus surgery Hx of spinal surgery Social History household members: other details: parents current occupational status: employed and retired Smoking Status: Former smoker alcohol intake: never substance use type: does not use do you feel safe at home: Yes ROS ROS ED Constitutional Constitutional ED: Reports chills, fever(s) and sweats; Denies weight loss Eyes Eyes: Denies blurry vision, change in vision or diplopia ENT ENT ED: Denies ear pain, rhinorrhea or sore throat Cardiovascular Cardiovascular: Reports palpitations and racing heartbeat; Denies chest pain or paroxysmal nocturnal dyspnea Respiratory/Chest Respiratory/Chest: Reports dyspnea; Denies cough, paroxysmal nocturnal dyspnea or sputum Gastrointestinal Gastrointestinal: Denies abdominal pain, nausea or vomiting Genitourinary Genitourinary ED: Reports other Details: Patient has an indwelling Bartlett. Musculoskeletal Musculoskeletal: Denies arthralgias, back pain or myalgias Integumentary Reports other Details: Sacral decubitus Neurologic Neurologic: Reports weakness; Denies headache(s) or paresthesias Hematologic/Lymphatic Hematologic/Lymphatic: Reports anemia, easy bleeding and easy bruising EXAM Physical Exam Const Vital Signs: 07/29/23 17:26 07/29/23 17:28 07/29/23 18:01 Temperature 98.8 F 98.8 F Temperature Source Temporal Temporal Pulse Rate 121 H 132 H Respiratory Rate 22 H 21 H Blood Pressure 142/80 H 147/76 H Blood Pressure Mean 100 99 Pulse Ox 97 94 Oxygen Delivery Method Room Air Room Air Room Air 07/29/23 18:28 07/29/23 20:13 07/29/23 20:13 Temperature 98.8 F 100.5 F H 100.5 F H Temperature Source Temporal Oral Oral Pulse Rate 115 H 121 H 123 H Respiratory Rate 18 13 13 Blood Pressure 145/67 H 125/59 H 124/59 H Blood Pressure Mean 93 81 80 Pulse Ox 100 95 95 Oxygen Delivery Method Room Air Room Air Room Air 07/29/23 21:00 07/29/23 21:30 Temperature 100.8 F H 100.5 F H Temperature Source Oral Pulse Rate 128 H 120 H Respiratory Rate 24 H 23 H Blood Pressure 125/88 H 125/80 H Blood Pressure Mean 100 95 Pulse Ox 92 94 Oxygen Delivery Method Room Air Positive well nourished, well developed and obese Constitutional Narrative: Patient appears tachypneic. He is tachycardic. Is not presently febrile or hypoxic. He is blood pressure is higher than what is considered normal. General Appearance ED: well developed and NAD; Negative for cyanotic or diaphoretic Nutritional Appearance: obese HEENT Reports dry mucous membranes HEENT Narrative: Ears normal. Nares patent. Posterior pharynx out erythema or exudate. Mouth ED: Yes dry mucous membranes Mouth: dry mucous membranes Eyes PERRL and EOMs intact bilaterally General Eye ED: Yes pale conjunctiva; Negative for scleral icterus Neck no lymphadenopathy, supple and no JVD Chest Wall inspection of chest normal and palpation of chest normal Resp normal respiratory effort and clear to auscultation bilaterally Cardio regular rhythm, S1 normal heart sound, S2 normal heart sound and no murmurs Rate: tachycardic GI normal to inspection, nondistended, normoactive bowel sounds, non-tender, non-distended and no masses; Negative for hepatosplenomegaly Narrative: Indwelling Bartlett. Back/Spine no CVA tenderness Extremity Negative for normal to inspection Extremity Narrative: Atrophy of his legs due to paraplegia. Neuro oriented x3, CN's II-XII intact bilaterally and No no sensory deficits noted Sensorium / Orientation: alert Motor Exam: Negative for strength 5/5 throughout Psych Mood & Affect: depressed Skin Skin Narrative: Large decubitus. Wounds: wounds noted Sepsis Attestation Sepsis Alert: Yes Sepsis Attestation: Agree w/Sepsis Date exam was performed: 07/29/23 Time exam was performed: 20:31 Possible Source of Sepsis: Skin/soft tissue Sepsis Organ Dysfunction Criteria Present: Lactic Acid > 2 mmol/L Supportive Findings: Since patient is not hypotensive and lactate is not greater than 4 he did not receive a 30 cc/kg bolus. MDM MDM MDM Narrative Medical decision making narrative: CT of the pelvis was obtained to assess for osteomyelitis which patient had in the past also to make sure there is no abscess near the bottom portion of the his buttocks near the gluteal crease. The radiologist did contact me at 2018. There is phlegmon there but no definitive abscess. This is consistent with an infection. Sepsis order set was initiated. History & Record Review Discussion w/independent historian: Patient and Family Lab Data Attestation: I reviewed the patient's lab results. Lab results narrative: White count is elevated 18.4. Patient's hemoglobin is 5.9 with a hematocrit of 21.8. MCV is low. He has approximate 2 g drop from prior. Differential reveals 59% segs 22% bands. There is also metamyelocytes and myelocytes. Lactate elevated 2.3. Urine reveals 4+ bacteria with no pyuria. This is probably colonization due to his indwelling Bartlett. Of note Bartlett needs to be reinserted because the balloon is inflated in his prostate. Labs: Laboratory Results - last 24 hr 07/29/23 07/29/23 07/29/23 17:45 18:15 20:35 WBC 18.4 H RBC 3.08 L Hgb 5.9 L* Hct 21.8 L MCV 70.8 L MCH 19.2 L MCHC 27.1 L RDW Std Deviation 54.1 H RDW Coeff of Mary 21.8 H Plt Count 915 H* MPV 8.8 Immature Gran % (Auto) JORDAN WORKER Neut % (Auto) JORDAN WORKER Lymph % (Auto) JORDAN WORKER Hayes % (Auto) JORDAN WORKER Eos % (Auto) JORDAN WORKER Baso % (Auto) JORDAN WORKER Absolute Neuts (auto) 14.9 H Absolute Lymphs (auto) 1.11 Total Counted JORDAN WORKER Neutrophils % (Manual) 59 Band Neutrophils % 22 H Lymphocytes % (Manual) 6 L Monocytes % (Manual) 6 Eosinophils % (Manual) 1 Basophils % (Manual) 2 H Metamyelocytes % 1 Myelocytes % 3 H Nucleated RBC % JORDAN WORKER Diff Path Review May foll Platelet Estimate MKD INC RBC Morphology N CHROM Hypochromasia 1+ Anisocytosis 1+ Microcytosis 1+ PT 16.7 H INR 1.4 APTT 51.5 H Sodium 130 L Potassium 4.0 Chloride 99 Carbon Dioxide 23.0 Anion Gap 8 BUN 13 Creatinine 0.60 L Est GFR (MDRD) Af Amer 180 Est GFR (MDRD) Non-Af 149 BUN/Creatinine Ratio 21.8 H Glucose 143 H Lactic Acid 2.3 H* Calcium 8.2 L Total Bilirubin 0.30 AST 13 L ALT 16 Alkaline Phosphatase 202 H Total Protein 7.1 Albumin 1.9 L Globulin 5.2 H Albumin/Globulin Ratio 0.4 L Urine Color Yellow Urine Clarity Sl. Cloudy Urine pH 6.5 Ur Specific [place] 1.010 Urine Protein 100 H Urine Glucose (UA) Normal Urine Ketones Negative Urine Occult Blood 150 H Urine Nitrite Positive H Urine Bilirubin Negative Urine Urobilinogen Normal Ur Leukocyte Esterase 500 H Urine RBC 5-10 SEEN Urine WBC 0-5 SEEN Ur Squamous Epith Cells 0 SEEN Urine Bacteria 4+ Urine Mucus 0 SEEN Crossmatch See Detail Radiography Diagnostic Testing: Clinical Impression(s) from Imaging Studies Chest X-Ray 07/29/23 17:55 IMPRESSION: Bibasilar scarring. There is no focal consolidation. Electronically Signed: Raphael Winslow MD at 18:28 EDT , Pelvis CT 07/29/23 18:32 IMPRESSION: 1. Decubitus ulcers over the inferior sacrum and right ischial tuberosity. Fascial defect extends to the bone surface. There is no obvious abscess identified in the subcutaneous tissues. 2. Bartlett catheter with the balloon inflated in the prostatic urethra. This should be deflated and advanced into the bladder. Electronically Signed: Raphael Winslow MD at 20:05 EDT , ADDENDUM: 07/29/232024 IMPRESSION: 1. Decubitus ulcers over the inferior sacrum and right ischial tuberosity. Fascial defect extends to the bone surface. There is no obvious abscess identified in the subcutaneous tissues. 2. Bartlett catheter with the balloon inflated in the prostatic urethra. This should be deflated and advanced into the bladder. N.B. : The above Results were Read Back by Raphael Winslow MD to Tolu Sharma MD, and understanding confirmed on 07/29/2023 20:18:19 (ET). Electronically Signed: Raphael Winslow MD at 20:05 EDT , EKG Initial EKG: Attestation: I personally reviewed and interpreted this EKG as follows: Interpretation: Sinus Tachycardia (Rate is 119. [place] to left. There is evidence of right bundle branch block. AK interval is 176 ms. Cures duration 148 ms. QT duration 352 ms. The right bundle branch block is not new.) Management Discussion w/another healthcare provider: Hospitalist (Spoke with Dr. Bentley the hospitalist. I was informed there is no plastic coverage this coming week. Recommended transfer. Patient was [facility] transferred to [facility]), Weaver Apprentice and Radiologist (Discussed in the MDM portion of the chart) Critical Care Time Critical Care Time: Yes Critical care time (excluding procedures): 30-74 minutes (57), Discussing w/Patient &/or Family/Bank Vault Attendant, Discussing w/Consultants (Hospitalist), Arranging Admission or Transfer (dr. Esposito hosp. [facility] attending ICU and critical carev transport. Spoke with the assistant principal at [facility] He will call back looking for bed availability other than [facility]) and Performing Direct Patient Care at Bedside Discharge Plan Triage Chief Complaint: Wound ED Provider: Tolu Sharma Dx/Rx/DC Orders Clinical Impression: Severe sepsis with acute organ dysfunction, Type 2 diabetes mellitus, Cellulitis of buttock, left, Cellulitis of buttock, right, Decubitus ulcer of sacral region, stage 4, Complete paraplegia, Sinus tachycardia, Acute blood lossanemia (ABLA) Prescriptions: No Action diclofenac sodium 50 mg tablet,delayed release (DR/EC) 50 mg PO DAILY fluticasone propionate [Flonase Allergy Relief] 50 mcg/actuation spray,suspension 1 spray INTRANASAL DAILY Patient Comments: takes in once in awhile Rx Instructions: administer into each nostril methocarbamol 500 mg tablet 1,000 mg PO TID PRN (Reason: cramps) morphine 30 mg tablet extended release 30 mg PO Q12H gabapentin 100 mg capsule 100 mg PO TID Eliquis 5 mg tablet 5 mg PO BID insulin glargine [Lantus U-100 Insulin] 100 unit/mL solution 20 unit subcut DAILY fluconazole 200 mg tablet 200 mg PO DAILY insulin lispro 100 unit/mL solution 8 unit subcut TID Patient Comments: 8 units in the morning, 8 at noon and 8 units in the evening Ozempic 1 mg/dose (4 mg/3 mL) pen injector 1 mg subcut MO guaifenesin 200 mg tablet 200 mg PO Q4H PRN (Reason: congestion) oxycodone 10 mg tablet 10 mg PO 4X/DAY PRN (Reason: pain) linezolid 600 mg tablet 600 mg PO BID docusate sodium [Colace] 100 mg capsule 100 mg PO DAILY polyethylene glycol 3350 [ClearLax] 17 gram/dose powder 17 g PO DAILY Primary Care Provider: Peter Thayer Referrals: Peter Thayer DO [Primary Care Provider] - Disposition Disposition: Acute Care Hospital Discharge Location: [facility] What to do if you have Problems For any increased pain, shortness of breath, bleeding, nausea or vomiting, chestpain, or any unexpected problems, contact your Primary Care Provider. Call [facility] ([phone]) or report to the closest Emergency Room. Call 911 if necessary. 07/29/232206 <Electronically signed by Tolu Sharma MD> Cosigner Signature (if applicable): CC: Dr. Peter Thayer DO ~ Signed [facility] Work Phone: 1(523) 872-983701-11-2024 NoteHNO ID: [id number] Author: CASA HERNANDEZ RN Service: Radiology Author Type: Registered Nurse Type: Progress Notes Filed: 05/26/2023 14:18 Note Text: Radiology Nursing Note DATE OF SERVICE: May 26, 2023 TIME: 2:18 PM PATIENT IDENTITY VERIFICATION COMPLETED USING TWO (2) STANDARD IDENTIFIERS: Name and Date of confirmed by patient verbally and Name and Date of confirmed by identification band. ALLERGIES: Reviewed and unchanged CONTRAST ALLERGY: No EXAM: CT with IV contrast IV SITE: Ambulatory: A peripheral IV was started in the Left forearm with a Angio cath: 20 gauge. IV SITE APPEARANCE: Clean,Dry and Intact SIGNATURE: Casa Hernandez RN PATIENT NAME: Melissa Elias DATE: May 26, 2023 TIME: 2:18 [facility]11-29-2023 History of Present illness Narrative * Nyasia Herrera MD - 04/13/2023 11:45 AM EST COLORECTAL SURGERY TELEPHONE VISIT FOLLOW UP I have communicated my name and active licensure. The patient's identity and physical location wereverified at the time of this visit. Either the patient or their legal guest services representative has been informed of the risks and benefits of -- and alternatives to -- treatment through a remote evaluation andconsents to proceed with the evaluation remotely. I had a virtual visit with Mr. Elias today for post-op follow-up after creation of laparoscopiccolostomy. UPDATED HISTORY: Melissa Elias is a 57yo M with morbid obesity (BMI 51), spinal stenosis, paraplegia, and sacraldecubitus ulcer with osteomyelitis s/p multiple debridement procedures. He is s/p laparoscopic creation of diverting loop colostomy on 02/14/23. Outpatient post-op visits had been postponed due to need for readmission for more debridement. At last debridement he had exposed spinal hardware. He is doing ok overall, still in nursing facility. Last week he had a couple of blow-outs with the colostomy bag, but for most part feels that things are pouching well and working ok. PHYSICAL FINDINGS OF NOTE: No physical exam as this was a telephone visit He was able to have a conversation on the phone without any dyspnea. Medical Decision Making: Assessment Assessment & Diagnosis: Melissa Elias is a 57yo M with morbid obesity (BMI 51), spinal stenosis, paraplegia, and stage IV sacral decubitus ulcer with osteomyelitis s/p multiple debridement procedures. He is s/p laparoscopic creation of diverting loop colostomy on 02/14/23. His wound is still not healed and in fact had exposed spinal hardware at last debridement Of note, he is also overdue for screening colonoscopy (average risk, no alarm symptoms, no family history). He had been in discussion with PCP about getting colonoscopy done but then started having problems with his spine and decubitus wounds, so things got pushed back Data Reviewed: Tests & Documents Reviewed/ordered: Review of prior notes from medical record Review of prior operative reports I have independently interpreted: n/a I have discussed Melissa Elias's treatment plan and/or results with the patient. Treatment plan: - He will reach out to our office when he is ready for colostomy closure. He has a long way to go still in regard to wound healing and still needs fecal diversion - Follow-up PRN with stoma nurses if he encounters pouching difficulties - Overdue for screening colonoscopy. We discussed importance of getting this when other medical problems are more stable. He feels it is too much to get this done right now when he is still dealing with wound healing problems and future surgeries. Nyasia Herrera MD Colorectal Surgery [facility]23 NoteHNO ID: [id number] Author: Nyasia Herrera MD Service: ? Author Type: Physician Type: Progress Notes Filed: 04/14/2023 2:57 PM Note Text: COLORECTAL SURGERY TELEPHONE VISIT FOLLOW UP I have communicated my name and active licensure. The patient's identity and physical location were verified at the time of this visit. Either the patient or their legal guest services representative has been informed of the risks and benefits of -- and alternatives to -- treatment through a remote evaluation and consents to proceed with the evaluation remotely. I had a virtual visit with Mr. Elias today for post-op follow-up after creation of laparoscopic colostomy. UPDATED HISTORY: Melissa Elias is a 57yo M with morbid obesity (BMI 51), spinal stenosis, paraplegia, and sacral decubitus ulcer with osteomyelitis s/p multiple debridement procedures. He is s/p laparoscopic creation of diverting loop colostomy on 02/14/23. Outpatient post-op visits had been postponed due to need for readmission for more debridement. At last debridement he had exposed spinal hardware. He is doing ok overall, still in nursing facility. Last week he had a couple of blow-outs with the colostomy bag, but for most part feels that things are pouching well and working ok. PHYSICAL FINDINGS OF NOTE: No physical exam as this was a telephone visit He was able to have a conversation on the phone without any dyspnea. Medical Decision Making: Assessment Assessment AND Diagnosis: Melissa Elias is a 57yo M with morbid obesity (BMI 51), spinal stenosis, paraplegia, and stage IV sacral decubitus ulcer with osteomyelitis s/p multiple debridement procedures. He is s/p laparoscopic creation of diverting loop colostomy on 02/14/23. His wound is still not healed and in fact had exposed spinal hardware at last debridement Of note, he is also overdue for screening colonoscopy (average risk, no alarm symptoms, no family history). He had been in discussion with PCP about getting colonoscopy done but then started having problems with his spine and decubitus wounds, so things got pushed back Data Reviewed: Tests AND Documents Reviewed/ordered: Review of prior notes from medical record Review of prior operative reports I have independently interpreted: n/a I have discussed Melissa Elias's treatment plan and/or results with the patient. Treatment plan: - He will reach out to our office when he is ready for colostomy closure. He has a long way to go still in regard to wound healing and still needs fecal diversion - Follow-up PRN with stoma nurses if he encounters pouching difficulties - Overdue for screening colonoscopy. We discussed importance of getting this when other medical problems are more stable. He feels it is too much to get this done right now when he is still dealing with wound healing problems and future surgeries. Nyasia Herrera MD [facility] Miscellaneous Notes* Telephone Encounter - William Faith - 03/29/2023 10:58 AM EST Filomena from [facility] - [phone]. Patient has appointment tomorrow, 03/30, for hospital discharge followup. He is in a lot of pain and hard to transport. Asking if he really needs this appointment right now or can he have a phone call visit? documented in this [facility]Med[facility]10-[facility] History of Present illness Narrative* Lamonte Haddad MD - 02/18/2023 2:01 PM EDT Large necrotic sacral wound-involving gluteal muscle-status post debridement. 02/10 and 02/17 polymicrobial beverly. CoPAT with meropenem-tentative stop date 03/12/2023 Lamonte Haddad MD, FIDSA, FACP February 18, 2023 6:23 PM documented in this encounterMedina Hospital09-30-2023 History of Past illness Narrative* Problem Noted Date Diagnosed Date Resolved Date Insulin dose changed 02/12/2023 023 NSTEMI (non-ST elevated myoc ardial infarction) 02/08/2023 03/08/2023 Non-traumatic rhabdomyolysis 02/06/2023 03/08/2023 Last Assessment & Plan: CK > 4500 at OSH IVF @ 75 Repeat CK IM consulted Elevated troponin 02/06/2023 03/08/2023 Last Assessment & Plan: Most likely r/t PE Cardiology consulted. Cellulitis 11/17/2022 03/08/2023 Last Assessment & Plan: BLE cellulitis Enterococcus bacteremia @ OSH - Continue ATBs - Zosyn - ID consult - TTE documented as of this encounter (statuses as of 03/25/2023) [facility] History of Past illness Narrative* Problem Noted Date Diagnosed Date Resolved Date Insulin dose changed 02/12/2023 023 NSTEMI (non-ST elevated myoc ardial infarction) 02/08/2023 03/08/2023 Non-traumatic rhabdomyolysis 02/06/2023 03/08/2023 Last Assessment & Plan: CK > 4500 at OSH IVF @ 75 Repeat CK IM consulted Elevated troponin 02/06/2023 03/08/2023 Last Assessment & Plan: Most likely r/t PE Cardiology consulted. Cellulitis 11/17/2022 03/08/2023 Last Assessment & Plan: BLE cellulitis Enterococcus bacteremia @ OSH - Continue ATBs - Zosyn - ID consult - TTE documented as of this encounter (statuses as of 03/29/2023) [facility] of Past illness Narrative* Problem Noted Date Diagnosed Date Resolved Date Insulin dose changed 02/12/2023 023 NSTEMI (non-ST elevated myoc ardial infarction) 02/08/2023 03/08/2023 Non-traumatic rhabdomyolysis 02/06/2023 03/08/2023 Last Assessment & Plan: CK > 4500 at OSH IVF @ 75 Repeat CK IM consulted Elevated troponin 02/06/2023 03/08/2023 Last Assessment & Plan: Most likely r/t PE Cardiology consulted. Cellulitis 11/17/2022 03/08/2023 Last Assessment & Plan: BLE cellulitis Enterococcus bacteremia @ OSH - Continue ATBs - Zosyn - ID consult - TTE documented as of this encounter (statuses as of 04/14/2023) [facility] of Past illness Narrative* Problem Noted Date Diagnosed Date Resolved Date Insulin dose changed 02/12/2023 023 NSTEMI (non-ST elevated myoc ardial infarction) 02/08/2023 03/08/2023 Non-traumatic rhabdomyolysis 02/06/2023 03/08/2023 Last Assessment & Plan: CK > 4500 at OSH IVF @ 75 Repeat CK IM consulted Elevated troponin 02/06/2023 03/08/2023 Last Assessment & Plan: Most likely r/t PE Cardiology consulted. Cellulitis 11/17/2022 03/08/2023 Last Assessment & Plan: BLE cellulitis Enterococcus bacteremia @ OSH - Continue ATBs - Zosyn - ID consult - TTE documented as of this encounter (statuses as of 06/17/2023) [facility]09-23-2023 Progress note Author Dina Maynard [facility] February 05, 2023 2:58pm Note Date/Time February 05, 2023 1:06pm [facility] Medical Records Department [address] [place] [address] Progress Note 02/05/23 1259 MR#: [id number] Acct: [id number] Name: MELISSA ELIAS Rep #:[id number] : 1965 57 From: Dina Maynard MD PCP: Dr. Peter Thayer, DO Status:ADM IN Location: [place] [address] Subjective Subjective Patient seen and examined. He had no active complaints and had an uneventful night. Review of systems is otherwise negative. He is still awaiting transfer toC. Objective Data Objective Data Vital Signs: Vital Signs Temp Pulse Resp BP Pulse Ox O2 Del Method O2 Flow Rate 98.3 F 92 16 126/59 H 97 Room Air 2 02/05/23 10:16 02/05/23 10:16 02/05/23 10:16 02/05/23 10:16 02/05/23 10:16 02/05/23 10:21 02/05/23 10:16 Oxygen Flow Rate (L/min) 2 Oxygen Delivery Method Room Air Weight: 323 lb 3.163 oz Body Mass Index (BMI) 43.8 Intake & Output: Intake and Output for Last 24 Hours 02/03/23 02/04/23 02/05/23 23:59 23:59 23:59 Intake Total 4420.00 / 4660.00 4762.80 / 5512.80 3364.42 / 3364.42 Output Total 1200 / 2600 2100 / 3000 4350 / 4350 Balance 3220.00 / 2060.00 2662.80 / 2512.80 -985.58 / -985.58 Medical Nutrition Assessment Dietitian: Malnutrition Criteria Met Start: 02/02/23 16:03 Freq: Status: Active Protocol: Document 02/05/23 11:35 RMA (Rec: 02/05/23 11:35 RMA [id number]) Nutrition Malnutrition Evidence of Malnutrition Exists Yes Malnutrition (severe): Chronic Evidenced By Suboptimal Energy Intake ( Severe),Weight Loss (Severe) Clinical Problem Chronic Disease or Condition Related Malnutrition Etiology severe malnutrition related to inadequate energy intake w/ recent spine injury Signs/Symptoms as evidenced by unintentional 14% wt loss x 2 months, estimated PO intake meeting < 75% of estimated energy needs x 2 months Status Active Problem Recommendation Dietitian Recommendations/Changes Will continue CHO controlled diet as ordered. Will change 120mL Glucerna shake TID from with medpass to with meals. Will add Wiliam BID to support wound healing with medpass. Lab / Micro Data 02/05/23 06:10 02/05/23 06:10 Labs: Laboratory Results - last 24 hr 02/04/23 11:59: POC Glucose 182 H 02/04/23 18:19: POC Glucose 139 H 02/04/23 20:11: Vancomycin Trough 20.6 H 02/04/23 22:06: POC Glucose 161 H 02/04/23 23:38: POC Glucose 163 H 02/05/23 01:47: Random Vancomycin 15.4 H 02/05/23 06:10: WBC 9.1, RBC 3.51 L, Hgb 7.9 L, Hct 27.4 L, MCV 78.1 L, MCH 22.5L, MCHC 28.8 L, RDW Std Deviation 54.3 H, RDW Coeff of Mary 19.3 H, Plt Count 269, MPV 8.7, Immature Gran % (Auto) 1.100 H, Neut % (Auto) 59.0, Lymph % (Auto)23.9, Hayes % (Auto) 10.5 H, Eos % (Auto) 4.8, Baso % (Auto) 0.7, Absolute Neuts (auto) 5.4, Absolute Lymphs (auto) 2.16, Nucleated RBC % 0, APTT 91.4 H*, [id number], Potassium 4.1, Chloride 104, Carbon Dioxide 27.0, Anion Gap 5, BUN 12, Creatinine 0.44 L, Estim Creat Clear Calc 208.21, Est GFR (MDRD) Af Amer 254, Est GFR (MDRD) Non-Af 210, BUN/Creatinine Ratio 27.0 H, Glucose 167 H, Calcium 8.3 L 02/05/23 06:26: POC Glucose 159 H 02/05/23 11:39: POC Glucose 188 H Micro: Microbiology 02/01/23 12:02 Urine Catheter - Bartlett Urine Culture - Final Pseudomonas aeruginosa 02/01/23 12:09 Blood Culture (Wb) - Right Wrist Blood Culture - Preliminary No growth in 48 hours. 02/01/23 11:45 Blood Culture (Wb) - Anticubital Left Blood Culture - Preliminary No growth in 48 hours. 02/02/23 17:13 Nasal Secretion SARS-CoV-2 Antigen (Rapid) - Final 02/01/23 12:16 Mucosa - Nasopharyngeal Respiratory Panel (PCR) - Final Physical Exam Const alert, oriented x3 and no apparent distress Constitutional Narrative: super morbid obesity General Appearance: cooperative HEENT normocephalic, head/scalp atraumatic, moist oral mucous membranes and oropharynxnormal Eyes PERRL and EOMs intact bilaterally Neck no lymphadenopathy, supple and no JVD Lymph Lymphatic: no lymphadenopathy noted and no lymphedema noted Resp Resp Narrative: mildly diminished breath sounds bibasally, no wheezes or crackles. On room air. Cardio regular rate, regular rhythm, S1 normal heart sound, S2 normal heart sound and no murmurs GI normal to inspection, nondistended, normoactive bowel sounds, soft to palpation,non-tender and non-distended GI Narrative: obese abdomen Extremity normal capillary refill and no clubbing, cyanosis or edema Skin Skin Narrative: both lower extremities wrapped in bandage. Intact dressing over lower back at site of sacral decubitus ulcers Neuro CN's II-XII intact bilaterally Neuro Narrative: power in RUE and LUE is 5/5. Power in lower extremities is 0/5 Psych thought process normal, cooperative and affect normal Appearance: appropriate Assessment & Plan Assessment/Plan (1) Bilateral pulmonary embolism: (2) Rhabdomyolysis: (3) Community acquired pneumonia: (4) Acute osteomyelitis of spine: PLAN: Plan #Hypoxia due to right lower lobe pneumonia * complicated by BATOOL * on IV vancomycin and zosyn * COVID negative and respiratory panel negative * on room air. * #Bilateral PE * as seen on CTA. * on heparin drip * * #Probable acute osteomyelitis of T9 * came in with severe chronic back pain * had a recent fall with L1 injury and resultant paraplegia * he recently had surgery in [place]. He is unable to say exactly what he had the surgery for * CT of the thoracic and lumbar spine showed acute kyphotic deformity at T9-T10 with almost complete collapse and destruction of the T9 vertebrae * MRi of the lumbar spine was ordered but not done as MRI department felt that per the CT lumbar spine images, he had multilevel screws and sharif fixation in the spine, this would limit the efficacy of the the MRI. * Spine surgery consulted. Dr Curtis reviewed images and recommended urgent t ransfer to a tertiary facility for evaluation for surgery due to complete collapse of T9 * on IV vancomycin, cefepime and flagyl. * records requested from Hospital in [place] where he had the spine surgery- per records from [facility] in [place], [place], he had left T10/T11 exploration of spina fusion with re-exploration of laminectomy and partial facetectomy and foraminotomy. * awaiting transfer to [facility] where he has been accepted pending bed availability * blood cultures negative. * #Elevated troponins * troponins were 151 on admission, and trended down to 123. * 2D echo showed EF of 65%, unable to assess diastolic dysfunction. * on heparin drip. * this elevation in troponin can be explained by bilateral PE, and not really nonstemi. * #Unstageable sacral decubitus ulcer with eschar * present on admission. Wound care and plastic surgery on board * #UTI: * concern for colonization due to chronic indwelling bartlett catheter * currently on antibiotics as above * ID on board. * urine cultures growing Pseudomonas. Blood cultures negative after 48 hours * #Rhabdomyolysis: resolved with IVF hydration #Anemia: Hb is 7.9 today. baseline is ~ 10 from November 2022. Will monitor. #Type 2 diabetes mellitus * ISS. Acuchecks ACHS * * #Super morbid obesity. Complicates acute care, expected recovery and prognosis. #Paraplegia due to mechanical fall with resultant L1 injury * Recently had surgery in [place]. Records requested from [facility]. * DVT prophylaxis; on heparin drip due to bilateral PE Disposition: Awaiting transfer to tertiary center. Accepted at [facility], pending bed availability. Charges/Coding Visit Charges Inpatient E&M: 16170 Subs Hosp L2 02/05/23 1458 <Electronically signed by Dina Maynard MD> Dina Maynard MD Cosigner Signature (if applicable): CC: ~ Signed [facility] Work Phone: 1(968) 736-120209-23-2023 Consult note Author Boaz Eugene [facility] February 05, 2023 3:36am Note Date/Time February 05, 2023 3:36am [facility] Medical Records Department [address] [place] [address] Pharmacokinetic/Renal -Consult 02/05/23 0335 MR#: [id number] Acct: [id number] Name: MELISSA ELIAS Rep #:[id number] : 1965 57 From: Boaz Ellington od PCP: Dr. Peter Thayer, DO Status:ADM IN Location: [place] [address] Consult Antibiotic Management Pharmacy has been consulted to manage selected antiobiotic: Vancomycin Type of Intervention Type of Consult: Follow-up Labs Labs: Sodium 136 mmol/L (136-145) 02/04/23 06:00 Potassium 3.9 mmol/L (3.5-5.1) 02/04/23 06:00 Chloride 103 mmol/L (98-107) 02/04/23 06:00 Carbon Dioxide 28.0 mmol/L (21.0-32.0) 02/04/23 06:00 Anion Gap 5 (5-15) 02/04/23 06:00 BUN 17 mg/dL (7-18) 02/04/23 06:00 Creatinine 0.52 mg/dL (0.70-1.30) L 02/04/23 06:00 Est GFR (MDRD) Af Amer 213 mL/min (>60) 02/04/23 06:00 Est GFR (MDRD) Non-Af 176 mL/min (>60) 02/04/23 06:00 BUN/Creatinine Ratio 32.9 RATIO (10-20) H 02/04/23 06:00 Glucose 200 mg/dL (74-106) H 02/04/23 06:00 Vancomycin Trough 20.6 ug/mL (5.0-15.0) H 02/04/23 20:11 Random Vancomycin 15.4 ug/mL (0.0-15.0) H 02/05/23 01:47 Microbiology Microbiology: Microbiology 02/01/23 12:02 Urine Catheter - Bartlett Urine Culture - Final Pseudomonas aeruginosa 02/01/23 12:09 Blood Culture (Wb) - Right Wrist Blood Culture - Preliminary No growth in 48 hours. 02/01/23 11:45 Blood Culture (Wb) - Anticubital Left Blood Culture - Preliminary No growth in 48 hours. 02/02/23 17:13 Nasal Secretion SARS-CoV-2 Antigen (Rapid) - Final 02/01/23 12:16 Mucosa - Nasopharyngeal Respiratory Panel (PCR) - Final Pharmacy Plan for Drug Dosing Pharmacy Plan for Drug Dosing: Pharmacy Service will continue to monitor and adjust dosing as required. RANDOM LEVEL 15.4. START 1250MG Q12H AND FOLLOW UP TROUGH PRIOR TO 4TH DOSE Follow-Up Labs Follow-Up Labs: Trough: Vancomycin Date/Time Labs Ordered Labs to be done on [date and time ordered]: 02/06 @ 1500 02/05/23 0336 <Electronically signed by Boaz shore> Date _ Boaz Lewis Signature (if applicable): Date CC: ~ Signed [facility] Work Phone: 1(339) 102-824309-22-2023 Consult note Author Boaz Eugene [facility] February 04, 2023 9:37pm Note Date/Time February 04, 2023 9:37pm [facility] Medical Records Department [address] [place] [address] Pharmacokinetic/Renal -Consult 02/04/232135 MR#: [id number] Acct: [id number] Name: MELISSA ELIAS Rep #:[id number] : 1965 57 From: Boaz Ellington od PCP: Dr. Peter Malys, DO Status:ADM IN [facility] Antibiotic Management Pharmacy has been consulted to manage selected antiobiotic: Vancomycin Type of Intervention Type of Consult: Follow-up Labs Labs: Sodium 136 mmol/L (136-145) 02/04/23 06:00 Potassium 3.9 mmol/L (3.5-5.1) 02/04/23 06:00 Chloride 103 mmol/L (98-107) 02/04/23 06:00 Carbon Dioxide 28.0 mmol/L (21.0-32.0) 02/04/23 06:00 Anion Gap 5 (5-15) 02/04/23 06:00 BUN 17 mg/dL (7-18) 02/04/23 06:00 Creatinine 0.52 mg/dL (0.70-1.30) L 02/04/23 06:00 Est GFR (MDRD) Af Amer 213 mL/min (>60) 02/04/23 06:00 Est GFR (MDRD) Non-Af 176 mL/min (>60) 02/04/23 06:00 BUN/Creatinine Ratio 32.9 RATIO (10-20) H 02/04/23 06:00 Glucose 200 mg/dL (74-106) H 02/04/23 06:00 Vancomycin Trough 20.6 ug/mL (5.0-15.0) H 02/04/23 20:11 Random Vancomycin 16.5 ug/mL (0.0-15.0) H 02/03/23 06:09 Microbiology Microbiology: Microbiology 02/01/23 12:02 Urine Catheter - Bartlett Urine Culture - Final Pseudomonas aeruginosa 02/01/23 12:09 Blood Culture (Wb) - Right Wrist Blood Culture - Preliminary No growth in 48 hours. 02/01/23 11:45 Blood Culture (Wb) - Anticubital Left Blood Culture - Preliminary No growth in 48 hours. 02/02/23 17:13 Nasal Secretion SARS-CoV-2 Antigen (Rapid) - Final 02/01/23 12:16 Mucosa - Nasopharyngeal Respiratory Panel (PCR) - Final Pharmacy Plan for Drug Dosing Pharmacy Plan for Drug Dosing: Pharmacy Service will continue to monitor and adjust dosing as required. TROUGH 20.6. HOLD DOSE AND DRAW RANDOM LEVEL IN 6 HOURS. Follow-Up Labs Follow-Up Labs: Trough: Vancomycin Date/Time Labs Ordered Labs to be done on [date and time ordered]: 02/05 @ 0200 02/04/232136 <Electronically signed by Boaz shore> Date _ Boaz Eugene Cosigner Signature (if applicable): Date CC: ~ Signed [facility] Work Phone: 1(422) 514-800409-22-2023 Progress note Author Dina [facility] February 04, 2023 4:40pm Note Date/Time February 04, 2023 1:49pm [facility] Medical Records Department [address] [address] Progress Note 02/04/23 1344 MR#: [id number] Acct: [id number] Name: MELISSA ELIAS Rep #:[id number] : 1965 57 From: Dina Maynard MD PCP: Dr. Peter Thayer, DO Status:ADM IN Location: [place] [address] Subjective Subjective Patient seen and examined. He had no complaints. He had an uneventful night and review of systems otherwise negative. He is awaiting transfer to [facility] pending bed availability. Objective Data Objective Data Vital Signs: Vital Signs Temp Pulse Resp BP Pulse Ox O2 Del Method O2 Flow Rate 98.1 F 92 16 140/72 H 99 Nasal Cannula 2 02/04/23 11:56 02/04/23 11:56 02/04/23 11:56 02/04/23 11:56 02/04/23 11:56 02/04/23 11:56 02/04/23 11:56 Oxygen Flow Rate (L/min) 2 Oxygen Delivery Method Nasal Cannula Weight: 320 lb 5.306 oz Body Mass Index (BMI) 43.4 Intake & Output: Intake and Output for Last 24 Hours 02/02/23 02/03/23 02/04/23 23:59 23:59 23:59 Intake Total 2810.0 / 3310.0 4420.00 / 4660.00 2982.77 / 2982.77 Output Total 2850 / 3550 1200 / 2600 2100 / 2100 Balance -40.0 / -240.0 3220.00 / 2060.00 882.77 / 882.77 Medical Nutrition Assessment Dietitian: Malnutrition Criteria Met Start: 02/02/23 16:03 Freq: Status: Active Protocol: Document 02/02/23 16:03 (Rec: 02/02/23 16:03 [id number]) Nutrition Malnutrition Evidence of Malnutrition Exists Yes Malnutrition (severe): Chronic Evidenced By Suboptimal Energy Intake ( Severe),Weight Loss (Severe) Clinical Problem Chronic Disease or Condition Related Malnutrition Etiology severe malnutrition related to inadequate energy intake w/ recent spine injury Signs/Symptoms as evidenced by unintentional 14% wt loss x 2 months, estimated PO intake meeting < 75% of estimated energy needs x 2 months Status Active Problem Recommendation Dietitian Recommendations/Changes continue CHO controlled diet as tolerated; will monitor plan of care and provide ONS as appropriate, will benefit from Wiliam BID d/t wounds. Lab / Micro Data 02/04/23 06:00 02/04/23 06:00 Labs: Laboratory Results - last 24 hr 02/03/23 09:31: POC Glucose 106 02/03/23 11:38: POC Glucose 181 H 02/03/23 14:19: POC Glucose 228 H 02/03/23 20:06: POC Glucose 185 H 02/04/23 00:11: POC Glucose 111 H 02/04/23 02:02: POC Glucose 205 H 02/04/23 06:00: WBC 8.7, RBC 3.62 L, Hgb 8.1 L, Hct 28.3 L, MCV 78.2 L, MCH 22.4L, MCHC 28.6 L, RDW Std Deviation 55.1 H, RDW Coeff of Mary 19.3 H, Plt Count 322, MPV 9.2, Immature Gran % (Auto) 0.900, Neut % (Auto) 64.1, Lymph % (Auto) 22.1, Hayes % (Auto) 9.4, Eos % (Auto) 2.9, Baso % (Auto) 0.6, Absolute Neuts (auto) 5.6, Absolute Lymphs (auto) 1.93, Nucleated RBC % 0, APTT 59.4 H, Sodium 136, Potassium 3.9, Chloride 103, Carbon Dioxide 28.0, Anion Gap 5, BUN 17, Creatinine 0.52 L, Estim Creat Clear Calc 176.18, Est GFR (MDRD) Af Amer 213, Est GFR (MDRD) Non-Af 176, BUN/Creatinine Ratio 32.9 H, Glucose 200 H, Calcium 8.0 L 02/04/23 06:37: POC Glucose 174 H 02/04/23 08:48: POC Glucose 187 H Micro: Microbiology 02/01/23 12:02 Urine Catheter - Bartlett Urine Culture - Final Pseudomonas aeruginosa 02/01/23 12:09 Blood Culture (Wb) - Right Wrist Blood Culture - Preliminary No growth in 48 hours. 02/01/23 11:45 Blood Culture (Wb) - Anticubital Left Blood Culture - Preliminary No growth in 48 hours. 02/02/23 17:13 Nasal Secretion SARS-CoV-2 Antigen (Rapid) - Final 02/01/23 12:16 Mucosa - Nasopharyngeal Respiratory Panel (PCR) - Final Physical Exam Const alert, oriented x3 and no apparent distress Constitutional Narrative: super morbid obesity General Appearance: cooperative HEENT normocephalic, head/scalp atraumatic, moist oral mucous membranes and oropharynxnormal Eyes PERRL and EOMs intact bilaterally Neck no lymphadenopathy, supple and no JVD Lymph Lymphatic: no lymphadenopathy noted and no lymphedema noted Resp Resp Narrative: mildly diminished breath sounds bibasally, no wheezes or crackles. On 2L of oxygen by nasal canula Cardio regular rate, regular rhythm, S1 normal heart sound, S2 normal heart sound and no murmurs GI normal to inspection, nondistended, normoactive bowel sounds, soft to palpation,non-tender and non-distended GI Narrative: obese abdomen Extremity normal capillary refill and no clubbing, cyanosis or edema Skin Skin Narrative: both lower extremities wrapped in bandage. Intact dressing over lower back at site of sacral decubitus ulcers Neuro CN's II-XII intact bilaterally Neuro Narrative: power in RUE and LUE is 5/5. Power in lower extremities is 0/5 Psych thought process normal, cooperative and affect normal Appearance: appropriate Assessment & Plan Assessment/Plan (1) Bilateral pulmonary embolism: (2) Rhabdomyolysis: (3) Community acquired pneumonia: (4) Acute osteomyelitis of spine: PLAN: Plan #Hypoxia due to right lower lobe pneumonia * complicated by BATOOL * on IV vancomycin and zosyn * COVID negative and respiratory panel negative * on 2L of oxygen. Titrate oxygen to maintain sats >90% * #Bilateral PE * as seen on CTA. * on heparin drip * * #Probable acute osteomyelitis of T9 * came in with severe chronic back pain * had a recent fall with L1 injury and resultant paraplegia * he recently had surgery in [place]. He is unable to say exactly what he had the surgery for * CT of the thoracic and lumbar spine showed acute kyphotic deformity at T9-T10 with almost complete collapse and destruction of the T9 vertebrae * MRi of the lumbar spine was ordered but not done as MRI department felt that per the CT lumbar spine images, he had multilevel screws and sharif fixation in the spine, this would limit the efficacy of the the MRI. * Spine surgery consulted. Dr Curtis reviewed images and recommended urgent transfer to a tertiary facility for evaluation for surgery due to complete collapse of T9 * on IV vancomycin, cefepime and flagyl. * records requested from Hospital in [place] where he had the spine surgery- per records from [facility] in [place], [place], he had left T10/T11 exploration of spina fusion with re-exploration of laminectomy and partial facetectomy and foraminotomy. * awaiting transfer to [facility] where he has been acceped pending bed availability * blood cultures negative. * #Elevated troponins * troponins were 151 on admission, and trended down to 123. * 2D echo showed Ef of 65%, unable to assess diastolic dysfunction. * on heparin drip. * this elevation in troponin can be explained by bilateral PE, and not really nonstemi. * #Unstageable sacral decubitus ulcer with eschar * present on admission. Wound care and plastic surgery on board * #UTI: * concern for colonisation due to chronic indwelling bartlett catheter * currently on antibiotics as above * ID on board. * urine cultures growing Pseudomonas. Blood cultures negative after 48 hours * #Rhabdomyolysis: resolved with IVF hydration #Type 2 diabetes mellitus * ISS. Acuchecks ACHS * * #Super morbid obesity. Complicates acute care, expected recovery and prognosis. #Paraplegia due to mechanical fall with resultant L1 injury * Recently had surgery in [place]. Records requested from [facility]. * DVT prophylaxis; on heparin drip due to bilateral PE Disposition: Awaiting transfer to tertiary center. Accepted at [facility], pending bed availability. Charges/Coding Visit Charges Inpatient E&M: 56552 Subs Hosp L2 02/04/23 1640 <Electronically signed by Dina Maynard MD> Dina Maynard MD Cosigner Signature (if applicable): CC: ~ Signed [facility] Work Phone: 1(260) 656-147109-21-2023 Progress note Author Dina [facility] February 03, 2023 3:38pm Note Date/Time February 03, 2023 11:18am [facility] Medical Records Department [address] [place] [address] Progress Note 02/03/23 1114 MR#: [id number] Acct: [id number] Name: MELISSA ELIAS Rep #:[id number] : 1965 57 From: Dina Maynard MD PCP: Dr. Peter Thayer, DO Status:ADM IN Location: [place] [address] Subjective Subjective Patient seen and examined. He had no active complaints and had an uneventful night. He is awaiting transfer to [facility] [place]. Objective Data Objective Data Vital Signs: Vital Signs Temp Pulse Resp BP Pulse Ox O2 Del Method O2 Flow Rate 97.4 F L 88 18 127/68 H 99 Nasal Cannula 2 02/03/23 09:00 02/03/23 09:00 02/03/23 09:00 02/03/23 09:00 02/03/23 09:00 02/03/23 09:00 02/03/23 09:00 Oxygen Flow Rate (L/min) 2 Oxygen Delivery Method Nasal Cannula Weight: 316 lb 5.813 oz Body Mass Index (BMI) 42.9 Intake & Output: Intake and Output for Last 24 Hours 02/01/23 02/02/23 02/03/23 23:59 23:59 23:59 Intake Total 1090 / 1240 2810.0 / 3310.0 2967.05 / 2967.05 Output Total 2850 / 3550 1200 / 1200 Balance 1090 / -160 -40.0 / -240.0 1767.05 / 1767.05 Medical Nutrition Assessment Dietitian: Malnutrition Criteria Met Start: 02/02/23 16:03 Freq: Status: Active Protocol: Document 02/02/23 16:03 AG (Rec: 02/02/23 16:03 AG [id number]) Nutrition Malnutrition Evidence of Malnutrition Exists Yes Malnutrition (severe): Chronic Evidenced By Suboptimal Energy Intake ( Severe),Weight Loss (Severe) Clinical Problem Chronic Disease or Condition Related Malnutrition Etiology severe malnutrition related to inadequate energy intake w/ recent spine injury Signs/Symptoms as evidenced by unintentional 14% wt loss x 2 months, estimated PO intake meeting < 75% of estimated energy needs x 2 months Status Active Problem Recommendation Dietitian Recommendations/Changes continue CHO controlled diet as tolerated; will monitor plan of care and provide ONS as appropriate, will benefit from Wiliam BID d/t wounds. Lab / Micro Data 02/03/23 06:09 02/03/23 06:09 Labs: Laboratory Results - last 24 hr 02/01/23 11:45: Diff Path Review Reviewed 02/02/23 12:07: POC Glucose 50 L 02/02/23 13:24: APTT 55.1 H, Vancomycin Trough 31.0 H 02/02/23 14:05: POC Glucose 59 L 02/02/23 16:43: POC Glucose 67 L 02/02/23 19:45: POC Glucose 127 H 02/03/23 01:59: POC Glucose 145 H 02/03/23 06:09: WBC 11.1 H, RBC 3.59 L, Hgb 8.2 L, Hct 27.9 L, MCV 77.7 L, MCH 22.8 L, MCHC 29.4 L, RDW Std Deviation 55.1 H, RDW Coeff of Mary 19.5 H, Plt Count 377, MPV 10.0, Immature Gran % (Auto) 0.700, Neut % (Auto) 68.8, Lymph % (Auto) 18.6 L, Hayes % (Auto) 9.6, Eos % (Auto) 1.6, Baso % (Auto) 0.7, Absolute Neuts (auto) 7.6, Absolute Lymphs (auto) 2.06, Nucleated RBC % 0, APTT 62.1 H, Sodium 136, Potassium 4.0, Chloride 102, Carbon Dioxide 28.0, Anion Gap 6, BUN 32 H, Creatinine 0.64 L, Estim Creat Clear Calc 143.14, Est GFR (MDRD) Af Amer 165, Est GFR (MDRD) Non-Af 137, BUN/Creatinine Ratio 49.7 H, Glucose 127 H, Calcium 8.0 L, Random Vancomycin 16.5 H 02/03/23 06:20: POC Glucose 111 H Micro: Microbiology 02/01/23 12:02 Urine Catheter - Bartlett Urine Culture - Preliminary Pseudomonas aeruginosa 02/01/23 12:09 Blood Culture (Wb) - Right Wrist Blood Culture - Preliminary No growth in 48 hours. 02/01/23 11:45 Blood Culture (Wb) - Anticubital Left Blood Culture - Preliminary No growth in 48 hours. 02/02/23 17:13 Nasal Secretion SARS-CoV-2 Antigen (Rapid) - Final 02/01/23 12:16 Mucosa - Nasopharyngeal Respiratory Panel (PCR) - Final Radiography Diagnostic Testing: Radiology Impression Echocardiogram 02/01/23 19:39 Interpretation Summary The estimated ejection fraction is 65 %. Unable to assess diastolic dysfunction. Ordering Physician: Terri Nino Referring Physician: Peter Thyaer Performed By: Cahr Gtz RCS Physical Exam Const alert, oriented x3 and no apparent distress Constitutional Narrative: super morbid obesity General Appearance: cooperative HEENT normocephalic, head/scalp atraumatic, moist oral mucous membranes and oropharynxnormal Eyes PERRL and EOMs intact bilaterally Neck no lymphadenopathy, supple and no JVD Lymph Lymphatic: no lymphadenopathy noted and no lymphedema noted Resp Resp Narrative: mildly diminished breath sounds bibasally, no wheezes or crackles. On 2L of oxygen by nasal canula Cardio regular rate, regular rhythm, S1 normal heart sound, S2 normal heart sound and no murmurs GI normal to inspection, nondistended, normoactive bowel sounds, soft to palpation,non-tender and non-distended GI Narrative: obese abdomen Extremity normal capillary refill and no clubbing, cyanosis or edema Skin Skin Narrative: both lower extremities wrapped in bandage. Intact dressing over lower back at site of sacral decubitus ulcers Neuro CN's II-XII intact bilaterally Neuro Narrative: power in RUE and LUE is 5/5. Power in lower extremities is 0/5 Psych thought process normal, cooperative and affect normal Appearance: appropriate Assessment & Plan Assessment/Plan (1) Bilateral pulmonary embolism: (2) Rhabdomyolysis: (3) Community acquired pneumonia: (4) Acute osteomyelitis of spine: PLAN: Plan #Hypoxia due to right lower lobe pneumonia * complicated by BATOOL * on IV vancomycin and zosyn * sputum culture pending. COVID negative and respiratory panel negative * on 2L of oxygen. Titrate oxygen to maintain sats >90% * #Bilateral PE * as seen on CTA. * on heparin drip * * #Probable acute osteomyelitis of T9 * came in with severe chronic back pain * had a recent fall with L1 injury and resultant paraplegia * he recently had surgery in [place]. He is unable to say exactly what he had the surgery for * CT of the thoracic and lumbar spine showed acute kyphotic deformity at T9-T10 with almost complete collapse and destruction of the T9 vertebrae * MRi of the lumbar spine was ordered but not done as MRI department felt that per the CT lumbar spine images, he had multilevel screws and sharif fixation in the spine, this would limit the efficacy of the the MRI. * Spine surgery consulted. Dr Curtis reviewed images and recommended urgent transfer to a tertiary facility for evaluation for surgery due to complete collapse of T9 * on IV vancomycin, cefepime and flagyl. * records requested from Hospital in [place] where he had the spine surgery- per records from [facility] in [place], [place], he had left T10/T11 exploration of spina fusion with re-exploration of laminectomy and partial facetectomy and foraminotomy. * awaiting transfer to [facility] where he has been acceped pending bed availability * #Elevated troponins * troponins were 151 on admission, and trended down to 123. * 2D echo showed Ef of 65%, unable to assess diastolic dysfunction. * on heparin drip. * this elevation in troponin can be explained by bilateral PE, and not really nonstemi. * #Unstageable sacral decubitus ulcer with eschar * present on admission. Wound care and plastic surgery on board * #UTI: * concern for colonisation due to chronic indwelling bartlett catheter * currently on antibiotics as above * ID on board. * urine cuotures growing Pseudomonas. Blood cultures negative after 48 hours * #Rhabdomyolysis: CPK was 4735. Continue gentle hydration and trend #Type 2 diabetes mellitus * Had several episodes of hypoglycemia since admission. All diabetes medication on hold. Being hydrated with D5 NS. * ISS. Acuchecks ACHS * * #Super morbid obesity. Complicates acute care, expected recovery and prognosis. #Paraplegia due to mechanical fall with resultant L1 injury * Recently had surgery in [place]. Records requested from [facility]. * DVT prophylaxis; on heparin drip due to bilateral PE Disposition: Awaiting transfer to tertiary center. Accepted at [facility], pending bed availability. Charges/Coding Visit Charges Inpatient E&M: 57618 Subs Hosp L2 02/03/23 1534 <Electronically signed by Dina Maynard MD> Dina Maynard MD Cosigner Signature (if applicable): CC: ~ Signed [facility] Work Phone: [phone]) 219-140809-21-2023 Discharge summary Author Lucian Sujit [facility] February 03, 2023 3:37pm Note Date/Time February 01, 2023 11:29am [facility] Medical Records Department [address] [place] [address] Emergency Department Summary 02/01/23 MR#: [id number] Acct: [id number] Name: MELISSA ELIAS Rep #:[id number] : 1965 57 From: Maninder RAMIREZ PCP: Dr. Peter Thayer, DO Status:[facility] <ASHLEY Daniels - Last Filed: 02/01/23 16:08> History of Present Illness Chief Complaint: Hypoglycemia Narrative Narrative: Patient is a 57-year-old male who is a paraplegic after mechanical fall November 2022. Past medical history of diabetes, hypertension hyperlipidemia, morbid obesity. Patient recently had a surgery in [place] on his back at a [facility] on 25 January which was last week. Today, the patient was altered, had a low blood sugar, and was not acting himself. Patient currently lives at home with his mother who is also ill and a couple of cousins that take care of him. Patient had a blood sugar in the mid to high 40s. Was given D50, and is now alert and oriented. Patient still diaphoretic, lethargic. Patient also hasa wound to his lower back since December that they have been monitoring. Per the family it is getting worse. [facility] <ASHLEY Daniels - Last Filed: 02/01/23 16:08> [facility] Medical History (Updated 02/01/23 @ 16:08 by ASHLEY Daniels) Anemia BMI greater than 40 Former tobacco use H/o back surgery HTN (hypertension) Lymphedema BATOOL treated with BiPAP Paraplegia Type 2 diabetes mellitus Home Medications B-complex with vitamin C 1 tab PO DAILY 03/03/20 [History Last Taken Unknown] ascorbate calcium (vitamin C) 500 mg tablet 500 mg PO DAILY 03/03/20 [History Last Taken Unknown] calcium carbonate 500 mg calcium (1,250 mg) tablet (Calcium 500) 500 mg PO DAILY03/03/20 [History Last Taken Unknown] cholecalciferol (vitamin D3) 50 mcg (2,000 unit) capsule 50 mcg PO DAILY 03/03/20 [History Last Taken Unknown] diclofenac sodium 50 mg tablet,delayed release 50 mg PO BID 03/03/20 [History Last Taken Unknown] fluticasone propionate 50 mcg/actuation nasal spray,suspension (Flonase Allergy Relief) 1 spray intranasal DAILY 03/03/20 [History Last Taken Unknown] levocetirizine 5 mg tablet (24HR Allergy Relief) 5 mg PO DAILY 03/03/20 [History Last Taken Unknown] olmesartan 40 mg-hydrochlorothiazide 25 mg tablet 1 ea PO DAILY 03/03/20 [History Last Taken Unknown] oxycodone-acetaminophen 7.5 mg-325 mg tablet 1 ea PO Q4H PRN Pain 03/03/20 [History Last Taken Unknown] propranolol 10 mg tablet 10 mg PO DAILY 03/03/20 [History Last Taken Unknown] tizanidine 4 mg tablet 1 ea PO TID PRN Spasms 03/03/20 [History Last Taken Unknown] zinc 50 mg tablet 50 mg PO DAILY 03/03/20 [History Last Taken Unknown] Allergy/AdvReac Type Severity Reaction Status Date / Time No Known Allergies Allergy Verified 11/15/22 18:01 Family History Mother Hypertension Hypotension Diabetes Arthritis Father Hypertension Hypotension Heart disease Status post double vessel coronary artery bypass angina Arthritis Grandfather Prostate cancer Grandmother Uterine cancer Surgical History (Updated 02/01/23 @ 13:[address] Terri Nino MD) H/O sinus surgery Hx of spinal surgery Social History household members: other details: parents current occupational status: employed and retired Smoking Status: Former smoker alcohol intake: never substance use type: does not use do you feel safe at home: Yes ROS <ASHLEY Daniels - Last Filed: 02/01/23 16:08> ROS ED ROS Narrative Constitutional: Negative for fever, chills, weight loss, weakness. Positive forhyperglycemia, lethargy Eyes: Negative for vision loss, vision change, double vision ENT: Negative for any sore throat, ear pain, congestion Cardiovascular: Negative for any chest pain, tightness, palpitations Respiratory: Negative for any cough, sputum production, hemoptysis, dyspnea, dyspnea on exertion, orthopnea Gastrointestinal: Negative for any abdominal pain, nausea, vomiting, diarrhea, constipation, blood in stool, blood in vomit : Negative for any urinary frequency, dysuria, retention, blood in urine Muscle skeletal: Negative for any muscle joint pain, stiffness, myalgias, arthralgias, neck pain. Positive for back pain Neurological: Negative for any headache, syncope, numbness or tingling, dizziness Skin: Negative for any rashes, lumps, itching, abrasions, lacerations. Positivefor wound to the lower back Psychiatric: Negative for any depression, anxiety, stress, suicidal ideation, homicidal ideation Hematologic: Negative for any easy bruising, excessive bruising, easy bleeding Allergies: Negative for any eczema, hives, rash EXAM <ASHLEY Daniels - Last Filed: 02/01/23 16:08> Physical Exam Narrative Exam Narrative: Vital signs reviewed. Patient is lethargic however he is answering questions appropriately. He is alert and orient x4. Is able to explain about the surgeries. HEET: Head normocephalic atraumatic, TMs clear bilaterally. Posterior pharynx is clear, dry mucous membranes. Nares clear bilaterally. Neck: Supple with no lymphadenopathy or tenderness. No signs of meningismus, negative jolt sign. Cardiac: Tachycardic rate no murmurs gallops or rubs, equal peripheral pulses bilaterally. Respiratory: Patient has crackles to bilateral lungs. No chest tenderness. Abdomen: Soft, nontender, nondistended. No abdominal bruit or pulsatile masses. No hepatosplenomegaly Extremities: Patient has multiple areas of pressure sores to the posterior legs secondary to his paraplegia. These are mostly superficial wounds. Intermittentredness, no significant cellulitis. Neuro: Cranial nerves II through XII intact, no focal neurological deficits. Skin: Clean dry and intact with no rash, purpura, petechiae, vesicles or pustules. Patient has a significant wound to the lumbar spine, patient's right buttock is black, with foul-smelling odor, drainage. There are multiple open areas, along with eschar. This is a significant wound that ranges from his entire lower lumbar spine and extends all the way to the right buttock. Backs/flank: No CVA tenderness, no midline spinal tenderness, no deformity. Psych: Normal mood and affect. No SI, HI or acute psychosis. Const Vital Signs: 02/01/23 11:16 02/01/23 11:16 02/01/23 11:38 Temperature 97.3 F L Temperature Source Temporal Pulse Rate 73 Respiratory Rate 12 Respiratory Effort Normal Respiratory Pattern Normal Blood Pressure 101/52 L Blood Pressure Mean 68 Pulse Ox 89 Oxygen Delivery Method Room Air Room Air Oxygen Flow Rate (L/min) 02/01/23 12:20 02/01/23 13:48 02/01/23 14:32 Temperature 98.2 F 98.3 F 96.9 F L Temperature Source Temporal Temporal Temporal Pulse Rate 78 84 86 Respiratory Rate 12 13 13 Respiratory Effort Respiratory Pattern Blood Pressure 110/66 126/61 H 131/71 H Blood Pressure Mean 80 82 91 Pulse Ox 99 98 98 Oxygen Delivery Method Nasal Cannula Nasal Cannula Nasal Cannula Oxygen Flow Rate (L/min) 2 2 2 02/01/23 15:00 02/01/23 16:09 02/01/23 16:00 Temperature 97 F L 98.9 F Temperature Source Temporal Axillary Pulse Rate 86 88 88 Respiratory Rate 11 L 15 18 Respiratory Effort Respiratory Pattern Blood Pressure 104/71 123/73 H 127/73 H Blood Pressure Mean 82 89 91 Pulse Ox 97 100 100 Oxygen Delivery Method Nasal Cannula Nasal Cannula Oxygen Flow Rate (L/min) 2 3 02/01/23 16:38 Temperature 98.9 F Temperature Source Axillary Pulse Rate 90 Respiratory Rate 14 Respiratory Effort Respiratory Pattern Blood Pressure 127/73 H Blood Pressure Mean 91 Pulse Ox 100 Oxygen Delivery Method Nasal Cannula Oxygen Flow Rate (L/min) 3 Positive obese and unkempt General Appearance ED: unkempt Nutritional Appearance: obese Psych Appearance: unkempt <Dr. Lucian Beckett DO - Last Filed: 02/01/23 16:57> Physical Exam Const Vital Signs: 02/01/23 11:16 02/01/23 11:16 02/01/23 11:38 Temperature 97.3 F L Temperature Source Temporal Pulse Rate 73 Respiratory Rate 12 Respiratory Effort Normal Respiratory Pattern Normal Blood Pressure 101/52 L Blood Pressure Mean 68 Pulse Ox 89 Oxygen Delivery Method Room Air Room Air Oxygen Flow Rate (L/min) 02/01/23 12:20 02/01/23 13:48 02/01/23 14:32 Temperature 98.2 F 98.3 F 96.9 F L Temperature Source Temporal Temporal Temporal Pulse Rate 78 84 86 Respiratory Rate 12 13 13 Respiratory Effort Respiratory Pattern Blood Pressure 110/66 126/61 H 131/71 H Blood Pressure Mean 80 82 91 Pulse Ox 99 98 98 Oxygen Delivery Method Nasal Cannula Nasal Cannula Nasal Cannula Oxygen Flow Rate (L/min) 2 2 2 02/01/23 15:00 02/01/23 16:09 02/01/23 16:00 Temperature 97 F L 98.9 F Temperature Source Temporal Axillary Pulse Rate 86 88 88 Respiratory Rate 11 L 15 18 Respiratory Effort Respiratory Pattern Blood Pressure 104/71 123/73 H 127/73 H Blood Pressure Mean 82 89 91 Pulse Ox 97 100 100 Oxygen Delivery Method Nasal Cannula Nasal Cannula Oxygen Flow Rate (L/min) 2 3 02/01/23 16:38 Temperature 98.9 F Temperature Source Axillary Pulse Rate 90 Respiratory Rate 14 Respiratory Effort Respiratory Pattern Blood Pressure 127/73 H Blood Pressure Mean 91 Pulse Ox 100 Oxygen Delivery Method Nasal Cannula Oxygen Flow Rate (L/min) 3 MDM <ASHLEY Daniels - Last Filed: 02/01/23 16:08> MDM Lab Data Attestation: I reviewed the patient's lab results. Labs: Laboratory Results - last 24 hr 02/01/23 02/01/23 02/01/23 11:27 11:45 12:02 WBC 14.3 H RBC 4.12 L Hgb 9.6 L Hct 31.0 L MCV 75.2 L MCH 23.3 L MCHC 31.0 L RDW Std Deviation 52.5 H RDW Coeff of Mary 19.3 H Plt Count 337 MPV 9.7 Immature Gran % (Auto) 0.600 Neut % (Auto) 75.1 H Lymph % (Auto) 11.1 L Hayes % (Auto) 11.8 H Eos % (Auto) 1.0 Baso % (Auto) 0.4 Absolute Neuts (auto) 10.8 H Absolute Lymphs (auto) 1.58 Nucleated RBC % 0 Diff Path Review September foll PT 14.8 INR 1.2 APTT 34.9 Sodium 127 L Potassium 3.6 Chloride 91 L Carbon Dioxide 30.0 Anion Gap 6 BUN 49 H Creatinine 0.75 Estim Creat Clear Calc 104.05 Est GFR (MDRD) Af Amer 139 Est GFR (MDRD) Non-Af 115 BUN/Creatinine Ratio 65.4 H Glucose 77 Lactic Acid 0.9 Calcium 8.4 L Total Bilirubin 0.40 AST 244 H ALT 62 H Alkaline Phosphatase 135 H Total Creatine Kinase 4735 H Troponin I High Sens 151 H* Total Protein 7.2 Albumin 2.4 L Globulin 4.8 H Albumin/Globulin Ratio 0.5 L Urine Color Yellow Urine Clarity Sl. Cloudy Urine pH 6.0 Ur Specific [place] 1.010 Urine Protein 15 H Urine Glucose (UA) Normal Urine Ketones Negative Urine Occult Blood 150 H Urine Nitrite Negative Urine Bilirubin Negative Urine Urobilinogen Normal Ur Leukocyte Esterase 500 H Urine RBC 0 SEEN Urine WBC >100 SEEN Ur Squamous Epith Cells 0 SEEN Urine Bacteria 0 SEEN Urine Mucus 0 SEEN POC Glucose 112 H 02/01/23 02/01/23 02/01/23 12:14 14:43 14:53 WBC RBC Hgb Hct MCV MCH MCHC RDW Std Deviation RDW Coeff of Mary Plt Count MPV Immature Gran % (Auto) Neut % (Auto) Lymph % (Auto) Hayes % (Auto) Eos % (Auto) Baso % (Auto) Absolute Neuts (auto) Absolute Lymphs (auto) Nucleated RBC % Diff Path Review PT 14.5 INR 1.1 APTT 35.7 Sodium Potassium Chloride Carbon Dioxide Anion Gap BUN Creatinine Estim Creat Clear Calc Est GFR (MDRD) Af Amer Est GFR (MDRD) Non-Af BUN/Creatinine Ratio Glucose Lactic Acid Calcium Total Bilirubin AST ALT Alkaline Phosphatase Total Creatine Kinase Troponin I High Sens 146 H* Total Protein Albumin Globulin Albumin/Globulin Ratio Urine Color Urine Clarity Urine pH Ur Specific [place] Urine Protein Urine Glucose (UA) Urine Ketones Urine Occult Blood Urine Nitrite Urine Bilirubin Urine Urobilinogen Ur Leukocyte Esterase Urine RBC Urine WBC Ur Squamous Epith Cells Urine Bacteria Urine Mucus POC Glucose 77 76 ABG Data ABG results: ABG 02/01/23 12:35 Specimen Type ART Sample Site R Radial pH 7.37 Bicarbonate Actual 27.9 H Total CO2 29 Base Excess 3 H O2 Saturation 94 L O2 % 2.0 ABG pCO2 48.1 H ABG pO2 73 L Leoncio Test Positive O2 Delivery Device Cannula Vent Mode Not entered Radiography Diagnostic Testing: Clinical Impression(s) from Imaging Studies Chest CTA 02/01/23 11:39 IMPRESSION: Bilateral pulmonary emboli worse on the right side as described. Right lower lobe infiltrate and small right pleural effusion. Destruction of the T9 vertebrae with acute kyphotic deformity at the T9-T10 level with possible osteomyelitis. Electronically Signed: Meño Arrington MD at 14:48 EDT , Lumbar Spine CT 02/01/23 11:39 IMPRESSION: Acute kyphotic deformity at the T9-T10 level with almost complete collapse and destruction of the T9 vertebrae. Multilevel interpedicular screw and sharif fixation with multilevel disc space narrowing in the facet joint osteoarthritis. Electronically Signed: Meño Arrington MD at 14:40 EDT , Chest X-Ray 02/01/23 12:15 IMPRESSION: Right lower lobe infiltrate. Electronically Signed: Meño Arrington MD at 12:38 EDT , EKG Sinus rhythm: Attestation: I personally reviewed and interpreted this EKG as follows: Interpretation: Sinus Rhythm Comments: Sinus rhythm with first-degree AV block. Rate of 76 bpm, AK interval 244 ms, QRS duration 176 ms, no acute ST elevation, no acute infarct noted. Treatment and Re-Evaluation :: Patient is alert and oriented however lethargic secondary to hypoglycemia. Patient is a large obese male that is a paraplegic who comes to the emergency department with altered mental status postsurgery 1 week ago. Upon initial evaluation, I concern for septicemia. The patient received a full septic work-up 2 sets of blood cultures, lactic acid, CPK.. Patient will receive a CTA of the chest to rule out a pulmonary embolus, pneumonia, pneumothorax, pleural effusion secondary to recent surgery. Patient will receive a CT scan of the lumbar sacral spine, this will rule out any gas, deep tissue infection, osteomyelitis. Upon initial evaluation, the patient will need to be admitted [facility]. The patient has no support at home, the patient needs [id number] care at this time. Patient will be started on IV vancomycin, IV Zosyn. He will be a close watch on the patient's blood sugar to ensure does not drop again. Patient remained alert and oriented, patient's blood glucose did decrease again to 77 needed another amp of D50. Patient remains alert and oriented, vital signs are stable on the 2 L of nasal cannula. Patient was given 2 doses of fentanyl for back pain. Patient's laboratory values showed elevated white bloodcount of 14.3, slight anemia at 9.6 with a hemoglobin. Patient's sodium is 127,creatinine 0.75 which is normal. Patient's AST and ALT are elevated 244 and 62. CPK was 4735, which 7 which shows rhabdomyolysis. Patient's troponins were initially 151, 146. Patient CT of the chest concerning for pulmonary embolus did show bilateral pulmonary emboli worse on the right side as described. Rightlower lobe infiltrate and small right pleural effusion. Destruction of the T9 vertebrae with acute kyphotic deformity at the T9-T10 level with possible osteomyelitis. I spoke with the radiologist regarding this. Patient was placedon vancomycin, Zosyn. Patient chest x-ray does show right lower lobe infiltrate. At this time, patient has multiple illnesses. I spoke with the patient at length as well as the family. I did speak with the hospitalist to see if the patient is stable to be admitted here. <Dr. Lucian Beckett, DO - Last Filed: 02/01/23 16:57> [facility] Narrative Medical decision making narrative: I have personally performed a face to face assessment of the patient and have reviewed the ALFONSO Note. I performed a substantive portion of the visit including all aspects of the following. My fournier findings include: History: Presents with hypoglycemia that occurred today. Patient was noted to have a blood sugar of 49 by EMS. EMS administered 1 amp of D10. Patient's blood sugar improved to 171 after that. EMS reports they were initially called for shortness of breath. Patient had a recent back surgery and has had some wound complications from that. The patient has poor healing wounds to his righthip and buttock area. Family denies any fevers or chills. Patient has a history of paraplegia. Exam: Vital signs are stable. Patient is afebrile. Patient is in no acute distress. Oral mucosa is pink and somewhat dry. Heart was regular rate and rhythm. Lungs are clear and equal bilaterally. Abdomen is soft. Bowel sounds are normal. There is no tenderness. There is dark tissue around the right gluteal area with poor healing wounds. There is some mottling of the feet bilaterally. Medical Decision Making: Differential diagnosis includes sepsis, wound infection, electrolyte abnormality, kidney injury, though my lysis, cardiac dysrhythmia, cardiac ischemia, and urinary tract infection. CBC will be obtained to assess for leukocytosis or anemia. Comprehensive metabolic profile will be obtained to assess for electrolyte abnormality, hepatic function, and renal function. High- sensitivity troponin will be obtained to assess for cardiac ischemia. CPK will be obtained to assess for rhabdomyolysis. Urinalysis will be obtained to assess for urinary tract infection. Serum lactate will be obtained to assess for sepsis. Arterial blood gas will be obtained to assess for acidosis. EKG was obtained. On my independent interpretation, it shows a normal sinus rhythm with first-degree AV block with a rate of 76. There are no acute ST or Twave changes noted. CTA of the chest was obtained. There are bilateral pulmonary emboli noted, worse on the right. There is a right lower lobe infiltrate. This was interpreted by the radiologist and was also independently reviewed by myself. CT scan of the lumbar spine was obtained. There is kyphotic deformity at T9-T10 level with almost complete collapse and destructionof the T9 vertebrae. This was interpreted by the radiologist was also independently reviewed by myself. Portable 1 view chest x-ray was obtained. Onmy independent interpretation, lung fuentes show a right lower lobe infiltrate. There is normal cardiac silhouette. Bony thorax is normal. Radiologist also interpreted the x-ray and agrees. CBC was reviewed and shows a mild leukocytosis of 14.3. Hemoglobin was 9.6 and hematocrit was 31.0. Platelets were normal. PT was INR and PTT were reviewed and were essentially within normal limits. Comprehensive metabolic profile was reviewed. BUN was elevated at 49. Creatinine was normal at 0.75. Sodium was slightly low at 127. Chloride was 91. AST was slightly elevated at 244. ALT was slightly elevated at 62. Alkaline phosphatase was slightly elevated at 135. Total bilirubin was normal at 0.40. Lactate was reviewed and was normal at 0.9. Urinalysis was reviewed. Leukocyte esterase was 500 with greater than 100 white blood cells. High-sensitivity troponin was reviewed and was elevated at 146. Total CPK was reviewed and was elevated at 4735. Arterial blood gas was reviewed. pH was 7.37, PO2 was 73, PCO2 was 48, bicarb was 27.9, and oxygen saturation 94%. Patient was started on Zosyn and vancomycin. Patient was given IV fluids. Patient's blood sugar did drop again and was given a dose of D50. Because of the patient's elevated troponin, patient was started on heparin drip. Patient was given fentanyl as needed for pain. Case was discussed with the hospitalist. She will admit the patient to PCU. Patient and family understood and was agreeable with the plan. All questions were answered. Lab Data Labs: Laboratory Results - last 24 hr 02/01/23 02/01/23 02/01/23 11:27 11:45 12:02 WBC 14.3 H RBC 4.12 L Hgb 9.6 L Hct 31.0 L MCV 75.2 L MCH 23.3 L MCHC 31.0 L RDW Std Deviation 52.5 H RDW Coeff of Mary 19.3 H Plt Count 337 MPV 9.7 Immature Gran % (Auto) 0.600 Neut % (Auto) 75.1 H Lymph % (Auto) 11.1 L Hayes % (Auto) 11.8 H Eos % (Auto) 1.0 Baso % (Auto) 0.4 Absolute Neuts (auto) 10.8 H Absolute Lymphs (auto) 1.58 Nucleated RBC % 0 Diff Path Review May foll PT 14.8 INR 1.2 APTT 34.9 Sodium 127 L Potassium 3.6 Chloride 91 L Carbon Dioxide 30.0 Anion Gap 6 BUN 49 H Creatinine 0.75 Estim Creat Clear Calc 104.05 Est GFR (MDRD) Af Amer 139 Est GFR (MDRD) Non-Af 115 BUN/Creatinine Ratio 65.4 H Glucose 77 Lactic Acid 0.9 Calcium 8.4 L Total Bilirubin 0.40 AST 244 H ALT 62 H Alkaline Phosphatase 135 H Total Creatine Kinase 4735 H Troponin I High Sens 151 H* Total Protein 7.2 Albumin 2.4 L Globulin 4.8 H Albumin/Globulin Ratio 0.5 L Urine Color Yellow Urine Clarity Sl. Cloudy Urine pH 6.0 Ur Specific [place] 1.010 Urine Protein 15 H Urine Glucose (UA) Normal Urine Ketones Negative Urine Occult Blood 150 H Urine Nitrite Negative Urine Bilirubin Negative Urine Urobilinogen Normal Ur Leukocyte Esterase 500 H Urine RBC 0 SEEN Urine WBC >100 SEEN Ur Squamous Epith Cells 0 SEEN Urine Bacteria 0 SEEN Urine Mucus 0 SEEN POC Glucose 112 H 02/01/23 02/01/23 02/01/23 12:14 14:43 14:53 WBC RBC Hgb Hct MCV MCH MCHC RDW Std Deviation RDW Coeff of Mary Plt Count MPV Immature Gran % (Auto) Neut % (Auto) Lymph % (Auto) Hayes % (Auto) Eos % (Auto) Baso % (Auto) Absolute Neuts (auto) Absolute Lymphs (auto) Nucleated RBC % Diff Path Review PT 14.5 INR 1.1 APTT 35.7 Sodium Potassium Chloride Carbon Dioxide Anion Gap BUN Creatinine Estim Creat Clear Calc Est GFR (MDRD) Af Amer Est GFR (MDRD) Non-Af BUN/Creatinine Ratio Glucose Lactic Acid Calcium Total Bilirubin AST ALT Alkaline Phosphatase Total Creatine Kinase Troponin I High Sens 146 H* Total Protein Albumin Globulin Albumin/Globulin Ratio Urine Color Urine Clarity Urine pH Ur Specific [place] Urine Protein Urine Glucose (UA) Urine Ketones Urine Occult Blood Urine Nitrite Urine Bilirubin Urine Urobilinogen Ur Leukocyte Esterase Urine RBC Urine WBC Ur Squamous Epith Cells Urine Bacteria Urine Mucus POC Glucose 77 76 ABG Data ABG results: ABG 02/01/23 12:35 Specimen Type ART Sample Site R Radial pH 7.37 Bicarbonate Actual 27.9 H Total CO2 29 Base Excess 3 H O2 Saturation 94 L O2 % 2.0 ABG pCO2 48.1 H ABG pO2 73 L Leoncio Test Positive O2 Delivery Device Cannula Vent Mode Not entered Radiography Diagnostic Testing: Clinical Impression(s) from Imaging Studies Chest CTA 02/01/23 11:39 IMPRESSION: Bilateral pulmonary emboli worse on the right side as described. Right lower lobe infiltrate and small right pleural effusion. Destruction of the T9 vertebrae with acute kyphotic deformity at the T9-T10 level with possible osteomyelitis. Electronically Signed: Meño Arrington MD at 14:48 EDT , Lumbar Spine CT 02/01/23 11:39 IMPRESSION: Acute kyphotic deformity at the T9-T10 level with almost complete collapse and destruction of the T9 vertebrae. Multilevel interpedicular screw and sharif fixation with multilevel disc space narrowing in the facet joint osteoarthritis. Electronically Signed: Meño Arrington MD at 14:40 EDT , Chest X-Ray 02/01/23 12:15 IMPRESSION: Right lower lobe infiltrate. Electronically Signed: Meño Arrington MD at 12:38 EDT , <Dr. Lucian Beckett, DO - Last Filed: 02/01/23 16:57> Critical Care Time Critical care time (excluding procedures): 30-74 minutes (39), Including time spent:, Discussing w/Patient &/or Family/Bank Vault Attendant, Discussing w/Consultants, Arranging Admission or Transfer and Performing Direct Patient Care at Bedside Discharge Plan Triage Chief Complaint: Hypoglycemia ED Midlevel Provider: Maninder Miller ED Provider: Lucian Beckett Dx/Rx/DC Orders Clinical Impression: Acute osteomyelitis of spine, Hypoglycemia, Community acquired pneumonia, Rhabdomyolysis, Hypoxia, Sepsis, Bilateral pulmonary embolism Prescriptions: No Action oxycodone-acetaminophen 7.5-325 mg tablet 1 ea PO Q4H PRN (Reason: Pain) Patient Comments: ONE TABLET BY MOUTH EVERY 4 HOURS NEEDED FOR SEVERE PAIN diclofenac sodium 50 mg tablet,delayed release (DR/EC) 50 mg PO BID olmesartan-hydrochlorothiazide 40-25 mg tablet 1 ea PO DAILY Patient Comments: TAKE 1 TABLET BY MOUTH EVERY DAY tizanidine 4 mg tablet 1 ea PO TID PRN (Reason: Spasms) Patient Comments: 1 TABLET ORALLY 3 TIMES PER DAY NEEDED FOR MUSCLE SPASM/BACK PAIN propranolol 10 mg tablet 10 mg PO DAILY B-complex with vitamin C Tablet 1 tab PO DAILY cholecalciferol (vitamin D3) 50 mcg (2,000 unit) capsule 50 mcg PO DAILY ascorbate calcium (vitamin C) 500 mg tablet 500 mg PO DAILY zinc 50 mg tablet 50 mg PO DAILY calcium carbonate [Calcium 500] 500 mg calcium (1,250 mg) tablet 500 mg PO DAILY fluticasone propionate [Flonase Allergy Relief] 50 mcg/actuation spray,suspension 1 spray INTRANASAL DAILY Rx Instructions: administer into each nostril levocetirizine [24HR Allergy Relief] 5 mg tablet 5 mg PO DAILY Primary Care Provider: Peter Thayer Referrals: Peter Thayer DO [Primary Care Provider] - What to do if you have Problems For any increased pain, shortness of breath, bleeding, nausea or vomiting, chestpain, or any unexpected problems, contact your Primary Care Provider. Call [facility] ([phone]) or report to the closest Emergency Room. Call 911 if necessary. 02/01/231922 <Electronically signed by Maninder Miller JORDAN WORKER-C> Cosigner Signature (if applicable): 02/03/23 1537 <Electronically signed by Lucian Beckett DO> CC: Dr. Peter Thayer, ~ Signed [facility] Work Phone: 1(609) 851-875309-21-2023 Progress note Author Minda Cm [facility] February 03, 2023 10:51am Note Date/Time February 03, 2023 10:52am [facility] Medical Records Department [address] [place] [address] Progress Note - Infect Disease 02/03/23 1051 MR#: [id number] Acct: [id number] Name: MELISSA ELIAS Rep #:[id number] : 1965 57 From: Minda ramírez MD PCP: Dr. Peter Thayer, DO Status:ADM IN Location: [place] [address] Physical Exam Narrative Feeling ok, pain controlled, no fever, no n/v Const alert and no apparent distress Resp normal air movement and clear to auscultation bilaterally Cardio regular rate and regular rhythm GI soft to palpation, non-tender and non-distended Skin Skin Narrative: no new rash ID ID: Route of nutrition/ use of supplements: [] Nutritional Intake: [] IV Site: [] Bartlett Catheter: [] Assessment & Plan Assessment/Plan (1) Pressure injury, unstageable, with eschar: (2) Bilateral pulmonary embolism: (3) Acute osteomyelitis of spine: PLAN: Treating for osteo, spine surgery has seen, MRI done. Recent surgery in [place], hardware in place. On vanc/cefepime/flagyl for better spine penetration compared to zosyn. Ucx with PsA - heavy pyuria, abx as above cellulitis and decub ulcer - wound care following. Will follow, transfer planned (4) Cellulitis of leg without foot, right: (5) Cellulitis of leg without foot, left: 02/03/23 1051 <Electronically signed by Minda Cm MD> Cosigner Signature (if applicable): CC: ~ Signed [facility] Work Phone: 1(652) 719-223809-21-2023 Consult note Author Mary Forte [facility] February 03, 2023 7:43am Note Date/Time February 03, 2023 7:43am [facility] Medical Records Department [address] [place] [address] Pharmacokinetic/Renal -Consult 02/03/23 0742 MR#: [id number] Acct: [id number] Name: MELISSA ELIAS Rep #:[id number] : 1965 57 From: Mary Forte PCP: Dr. Peter Thayer, DO Status:ADM IN Y Location: [place] [address] Consult Antibiotic Management Pharmacy has been consulted to manage selected antiobiotic: Vancomycin Type of Intervention Type of Consult: Follow-up Labs Labs: Sodium 133 mmol/L (136-145) L 02/02/23 03:46 Potassium 3.8 mmol/L (3.5-5.1) 02/02/23 03:46 Chloride 97 mmol/L (98-107) L 02/02/23 03:46 Carbon Dioxide 30.0 mmol/L (21.0-32.0) 02/02/23 03:46 Anion Gap 6 (5-15) 02/02/23 03:46 BUN 40 mg/dL (7-18) H 02/02/23 03:46 Creatinine 0.71 mg/dL (0.70-1.30) 02/02/23 03:46 Est GFR (MDRD) Af Amer 147 mL/min (>60) 02/02/23 03:46 Est GFR (MDRD) Non-Af 122 mL/min (>60) 02/02/23 03:46 BUN/Creatinine Ratio 56.2 RATIO (10-20) H 02/02/23 03:46 Glucose 57 mg/dL (74-106) L 02/02/23 03:46 Vancomycin Trough 31.0 ug/mL (5.0-15.0) H 02/02/23 13:24 Random Vancomycin 16.5 ug/mL (0.0-15.0) H 02/03/23 06:09 Microbiology Microbiology: Microbiology 02/01/23 12:09 Blood Culture (Wb) - Right Wrist Blood Culture - Preliminary No growth in 48 hours. 02/01/23 11:45 Blood Culture (Wb) - Anticubital Left Blood Culture - Preliminary No growth in 48 hours. 02/02/23 17:13 Nasal Secretion SARS-CoV-2 Antigen (Rapid) - Final 02/01/23 12:02 Urine Catheter - Bartlett Urine Culture - Preliminary GNR Poss Pseudomonas sp 02/01/23 12:16 Mucosa - Nasopharyngeal Respiratory Panel (PCR) - Final Goal Trough Goal Trough: 15-20 mcg/mL Pharmacy Plan for Drug Dosing Pharmacy Plan for Drug Dosing: VANCOMYCIN LEVEL RECEIVED Current Vancomycin Dose: ON HOLD- Previously had elevated trough Number of Doses Received: 3 Vancomycin Level: 16.5 Hours Since Last Dose: 24.5hr Renal Function: 0.71 Renal Function Trend: stable Lab/Micro: pending Vancomycin Plan/Comments: Patient had a random trough drawn this morning after holding vancomycin d/t elevated trough. This resulted in a value of 16.5 (goal 15-20). Since patient is now within therapeutic goal range for vancomycin, will plan to restart vancomycin this morning. Will start patient on vancomycin 1500mgIV Q12hr to start 02/03/23 @0900 Pending Level: 02/04/23 @2030, prior to 4th dose of new regimen. Pharmacy Service will continue to monitor and adjust dosing as required. 02/03/23 0743 <Electronically signed by Mary Forte > Date _ Mary Forte Cosigner Signature (if applicable): Date CC: ~ Signed [facility] Work Phone: 1(242) 947-146609-20-2023 Consult note Author Raphael Curtis [facility] February 02, 2023 5:47pm Note Date/Time February 02, 2023 5:47pm [facility] Medical Records Department [address] [place] [address] Consultation - Orthopedics 02/02/23 1738 MR#: [id number] Acct: [id number] Name: MELISSA ELIAS FLORENCIO Rep #:[id number] : 1965 57 From: Raphael Monteiro PCP: Dr. Peter Thayer, DO Status:ADM IN Location: [place] [address] HPI Consult Data Date of Consult: 02/02/23 HPI Narrative HPI Narrative: The patient is a 57-year-old male who is currently admitted for multiple medicalissues. He is currently lying in bed resting comfortably. He is accompanied byhis family who contributed to the medical history. Imaging of the spine showed previous surgical hardware with possible osteomyelitis and spine surgery has been consulted for evaluation and management. The patient states that he had a lumbar fusion in 2016 in [place] with a subsequent revision and extension of thatfusion in 2020. He states that in November of this year he suffered a fall with subsequent bilateral lower extremity paraplegia. He did present to [facility] ER wherehe was seen and evaluated. No further back surgery was recommended at that time. He was subsequently discharged to a nursing facility where he states he developed pressure sores. Upon discharge from the nursing facility he did contact a spine surgery clinic in [place] and traveled there where he had another back surgery 6 days ago. He states the surgery was a decompression of T9-10. He then traveled back here after his surgery. 2 days ago he developed hypoglycemia and return to the ER where he was subsequently admitted. Since then he was found to have bilateral pulmonary embolism, pneumonia, rhabdo myelitis, possible osteomyelitis of T10. Infectious disease has been consulted for antibiotic management. The patient has no sensory or motor function in the lower extremities. [facility] Medical History Anemia BMI greater than 40 Former tobacco use H/o back surgery HTN (hypertension) Lymphedema BATOOL treated with BiPAP Paraplegia Type 2 diabetes mellitus Home Medications B-complex with vitamin C 1 tab PO DAILY supplement 03/03/20 [History Last Taken Unknown] ascorbate calcium (vitamin C) 500 mg tablet 500 mg PO DAILY supplement 03/03/20 [History Last Taken Unknown] calcium carbonate 500 mg calcium (1,250 mg) tablet (Calcium 500) 500 mg PO DAILYsupplement 03/03/20 [History Last Taken Unknown] cholecalciferol (vitamin D3) 50 mcg (2,000 unit) capsule 50 mcg PO DAILY supplement 03/03/20 [History Last Taken Unknown] diclofenac sodium 50 mg tablet,delayed release 50 mg PO BID supplement 03/03/20 [History Last Taken Unknown] fluticasone propionate 50 mcg/actuation nasal spray,suspension (Flonase Allergy Relief) 1 spray intranasal DAILY shortness of breath 03/03/20 [History Last Taken Unknown] levocetirizine 5 mg tablet (24HR Allergy Relief) 5 mg PO DAILY allergies 03/03/20 [History Last Taken 01/31/23] olmesartan 40 mg-hydrochlorothiazide 25 mg tablet 1 ea PO DAILY blood pressure 03/03/20 [History Last Taken 01/31/23] oxycodone-acetaminophen 7.5 mg-325 mg tablet 1 ea PO Q4H PRN Pain 03/03/20 [History Last Taken Unknown] propranolol 10 mg tablet 10 mg PO DAILY Blood pressure 03/03/20 [History Last Taken 01/31/23] tizanidine 4 mg tablet 1 ea PO TID PRN Spasms 03/03/20 [History Last Taken 01/31/23] zinc 50 mg tablet 50 mg PO DAILY supplement 03/03/20 [History Last Taken 01/31/23] Allergy/AdvReac Type Severity Reaction Status Date / Time No Known Allergies Allergy Verified 11/15/22 18:01 Family History Mother Hypertension Hypotension Diabetes Arthritis Father Hypertension Hypotension Heart disease Status post double vessel coronary artery bypass angina Arthritis Grandfather Prostate cancer Grandmother Uterine cancer Surgical History (Updated 02/01/23 @ 20:[address] Terri Nino MD) H/O sinus surgery Hx of spinal surgery Social History household members: other details: parents current occupational status: employed and retired Smoking Status: Former smoker alcohol intake: never substance use type: does not use do you feel safe at home: Yes Vital Signs Vital Signs Vital Signs: 02/01/23 18:00 02/01/23 19:07 02/01/23 20:40 Temperature 97.7 F L 97.6 F L 98.0 F Temperature Source Oral Oral Temporal Pulse Rate 99 92 83 Pulse Strength Respiratory Rate 14 17 18 Respiratory Effort Respiratory Depth Respiratory Pattern Blood Pressure 153/83 H 102/66 Blood Pressure [BP] 76/38 L Blood Pressure Mean 106 78 Blood Pressure Mean [BP] 50 Blood Pressure Source Monitor Blood Pressure Source [BP] Monitor Blood Pressure Position Semi-Fowlers Blood Pressure Position [BP] Semi-Fowlers Blood Pressure Location Right Forearm Blood Pressure Location [BP] Right Forearm Pulse Ox 93 93 97 Oxygen Delivery Method Nasal Cannula Nasal Cannula Nasal Cannula Oxygen Flow Rate (L/min) 3 3 3 02/01/23 19:39 02/01/23 21:26 02/01/23 21:49 Temperature 98 F 98.1 F Temperature Source Temporal Temporal Pulse Rate 86 89 90 Pulse Strength Respiratory Rate 18 18 18 Respiratory Effort Respiratory Depth Respiratory Pattern Blood Pressure 124/79 H Blood Pressure [BP] 68/44 L 99/70 Blood Pressure Mean 94 Blood Pressure Mean [BP] 52 79 Blood Pressure Source Monitor Blood Pressure Source [BP] Monitor Monitor Blood Pressure Position Semi-Fowlers Blood Pressure Position [BP] Semi-Fowlers Semi-Fowlers Blood Pressure Location Left Arm Blood Pressure Location [BP] Left Arm Left Arm Pulse Ox 97 100 98 Oxygen Delivery Method Nasal Cannula Nasal Cannula Nasal Cannula Oxygen Flow Rate (L/min) 3 3 3 02/01/23 22:00 02/01/23 22:00 02/01/23 22:40 Temperature Temperature Source Pulse Rate Pulse Strength Normal (2+) Respiratory Rate 18 Respiratory Effort Normal Respiratory Depth Shallow Respiratory Pattern Normal Blood Pressure Blood Pressure [BP] Blood Pressure Mean Blood Pressure Mean [BP] Blood Pressure Source Blood Pressure Source [BP] Blood Pressure Position Blood Pressure Position [BP] Blood Pressure Location Blood Pressure Location [BP] Pulse Ox 98 94 Oxygen Delivery Method Nasal Cannula Nasal Cannula Oxygen Flow Rate (L/min) 3 3 02/01/23 22:40 02/01/23 22:30 02/02/23 00:00 Temperature 98.1 F Temperature Source Temporal Pulse Rate 90 87 Pulse Strength Respiratory Rate 18 18 Respiratory Effort Labored Respiratory Depth Normal Respiratory Pattern Tachypnea Blood Pressure Blood Pressure [BP] 100/66 120/74 Blood Pressure Mean Blood Pressure Mean [BP] 77 89 Blood Pressure Source Blood Pressure Source [BP] Monitor Monitor Blood Pressure Position Blood Pressure Position [BP] Semi-Fowlers Semi-Fowlers Blood Pressure Location Blood Pressure Location [BP] Left Arm Left Arm Pulse Ox 99 98 Oxygen Delivery Method Nasal Cannula Nasal Cannula Nasal Cannula Oxygen Flow Rate (L/min) 3 3 3 02/02/23 01:30 02/02/23 03:00 02/02/23 07:59 Temperature 97.9 F 98.2 F Temperature Source Temporal Temporal Pulse Rate 84 90 Pulse Strength Respiratory Rate 18 18 Respiratory Effort Respiratory Depth Respiratory Pattern Blood Pressure 104/68 Blood Pressure [BP] 128/60 H Blood Pressure Mean 80 Blood Pressure Mean [BP] 82 Blood Pressure Source Monitor Blood Pressure Source [BP] Monitor Blood Pressure Position Semi-Fowlers Blood Pressure Position [BP] Semi-Fowlers Blood Pressure Location Left Arm Blood Pressure Location [BP] Left Arm Pulse Ox 99 99 93 Oxygen Delivery Method Nasal Cannula Nasal Cannula Nasal Cannula Oxygen Flow Rate (L/min) 3 3 3 02/02/23 08:21 02/02/23 08:49 02/02/23 14:49 Temperature 97.5 F L Temperature Source Temporal Pulse Rate 88 Pulse Strength Respiratory Rate 16 Respiratory Effort Normal Non-Labored Respiratory Depth Shallow Respiratory Pattern Normal Blood Pressure 108/65 Blood Pressure [BP] Blood Pressure Mean 79 Blood Pressure Mean [BP] Blood Pressure Source Monitor Blood Pressure Source [BP] Blood Pressure Position Semi-Fowlers Blood Pressure Position [BP] Blood Pressure Location Right Arm Blood Pressure Location [BP] Pulse Ox 98 Oxygen Delivery Method Nasal Cannula Nasal Cannula Oxygen Flow Rate (L/min) 3 3 02/02/23 15:24 02/02/23 15:44 02/02/23 15:47 Temperature 98.0 F Temperature Source Temporal Pulse Rate 85 Pulse Strength Respiratory Rate 16 Respiratory Effort Normal Non-Labored Respiratory Depth Normal Respiratory Pattern Normal Blood Pressure 127/69 H Blood Pressure [BP] Blood Pressure Mean 88 Blood Pressure Mean [BP] Blood Pressure Source Monitor Blood Pressure Source [BP] Blood Pressure Position Supine Blood Pressure Position [BP] Blood Pressure Location Right Arm Blood Pressure Location [BP] Pulse Ox 100 Oxygen Delivery Method Nasal Cannula Oxygen Flow Rate (L/min) 3 3 Weight Weight: 313 lb 15.012 oz Body Mass Index (BMI) 42.5 Physical Exam Const alert, oriented x3 and no apparent distress General Appearance: cooperative and comfortable Neck full ROM General: normal visual inspection Resp normal respiratory effort and normal air movement Effort and Inspection: able to speak in complete sentences Back/Spine Back/Spine Narrative: Examination of the thoracic spine shows two 1 cm transverse incisions from recent surgery in the thoracic midline with andrade in place. The patient also has a large full-thickness pressure sore along the entire right buttock and right iliolumbar region with an extension into part of the inferior left gluteal region as well. Foul odor is associated with this. Cervical Spine: cervical ROM normal Extremity Extremity Narrative: Examination of the upper extremity shows sensation motor intact grossly without focal deficit. Pulses and reflexes are normal and symmetric. No upper motor neuron signs Examination of the lower extremity shows minimal sensation in the proximal anterior thighs. Sensation is not intact in any part of the remainder of the lower extremities. Motor function is not intact in any of the muscle groups of the lower extremities. The patient has dressings to both feet and ankles due to pressure sores in these areas as well. Medical Records Data Medical Nutrition Assessment Dietitian: Malnutrition Criteria Met Start: 02/02/23 16:03 Freq: Status: Active Protocol: Document 02/02/23 16:03 (Rec: 02/02/23 16:03 [id number]) Nutrition Malnutrition Evidence of Malnutrition Exists Yes Malnutrition (severe): Chronic Evidenced By Suboptimal Energy Intake ( Severe),Weight Loss (Severe) Clinical Problem Chronic Disease or Condition Related Malnutrition Etiology severe malnutrition related to inadequate energy intake w/ recent spine injury Signs/Symptoms as evidenced by unintentional 14% wt loss x 2 months, estimated PO intake meeting < 75% of estimated energy needs x 2 months Status Active Problem Recommendation Dietitian Recommendations/Changes continue CHO controlled diet as tolerated; will monitor plan of care and provide ONS as appropriate, will benefit from Wiliam BID d/t wounds. Lab / Micro Data 02/02/23 03:46 02/02/23 03:46 Labs: Laboratory Results - last 24 hr 02/01/23 14:53: Phosphorus 4.2, Magnesium 2.4, Iron 19 L, TIBC 250, Iron Saturation 7.6 L, Ferritin 1289 H 02/01/23 20:59: POC Glucose 35 L* 02/01/23 21:16: POC Glucose 73 L 02/01/23 21:47: POC Glucose 87 02/01/23 22:14: Troponin I High Sens 128 H* 02/01/23 23:38: APTT 88.4 H, Troponin I High Sens 123 H* 02/02/23 01:40: POC Glucose 81 02/02/23 03:45: MRSA (PCR) Negative 02/02/23 03:46: WBC 15.7 H, RBC 3.62 L, Hgb 8.3 L, Hct 28.0 L, MCV 77.3 L, MCH 22.9 L, MCHC 29.6 L, RDW Std Deviation 54.0 H, RDW Coeff of Mary 19.2 H, Plt Count 358, MPV 9.6, Immature Gran % (Auto) 0.400, Neut % (Auto) 76.7 H, Lymph % (Auto) 13.1 L, Hayes % (Auto) 8.5, Eos % (Auto) 0.8, Baso % (Auto) 0.5, Absolute Neuts (auto) 12.0 H, Absolute Lymphs (auto) 2.05, Nucleated RBC % 0, Sodium 133 L, Potassium 3.8, Chloride 97 L, Carbon Dioxide 30.0, Anion Gap 6, BUN 40 H, Creatinine 0.71, Estim Creat Clear Calc 129.03, Est GFR (MDRD) Af Amer 147, Est GFR (MDRD) Non-Af 122, BUN/Creatinine Ratio 56.2 H, Glucose 57 L, Hemoglobin A1c 5.6, Calcium 8.2 L, Total Bilirubin 0.40, AST 163 H, ALT 55, Alkaline Phosphatase 122 H, Total Creatine Kinase 2416 H, Troponin I High Sens 156 H*, Total Protein 6.5, Albumin 2.1 L, Globulin 4.4 H, Albumin/Globulin Ratio 0.5 L, Triglycerides 154, Cholesterol 123, LDL Cholesterol 66, VLDL Cholesterol 31, HDL Cholesterol 26 L 02/02/23 05:44: POC Glucose 34 L* 02/02/23 06:41: POC Glucose 124 H 02/02/23 06:42: APTT 77.7 H 02/02/23 12:07: POC Glucose 50 L 02/02/23 13:24: APTT 55.1 H, Vancomycin Trough 31.0 H 02/02/23 14:05: POC Glucose 59 L 02/02/23 16:43: POC Glucose 67 L Micro: Microbiology 02/01/23 12:02 Urine Catheter - Bartlett Urine Culture - Preliminary GNR Poss Pseudomonas sp 02/01/23 12:16 Mucosa - Nasopharyngeal Respiratory Panel (PCR) - Final Radiology Impression Echocardiogram 02/01/23 19:39 Interpretation Summary The estimated ejection fraction is 65 %. Unable to assess diastolic dysfunction. Ordering Physician: Terri Nino Referring Physician: Peter Thayer Performed By: Char Gtz RCS Assessment & Plan Assessment/Plan (1) Acute osteomyelitis of spine: PLAN: I had a lengthy discussion with the patient. I reviewed the results of his imaging with him. CT of the lumbar spine dated 02/01/2023 shows surgical changes from prior T10 to the pelvis fusion with posterior screws and rods. There is a destructive lesion of the T10 vertebral body with subsequent 45 degrees of angulation and about 50% anterolisthesis of T9 on T10. This destructive lesion could be due to osteomyelitis or Charcot arthropathy. Given the patient's current medical condition I do not recommend further surgical treatment at this time. I do recommend referral to a tertiary facility for further evaluation and management. [facility] was contacted but declined transfer. [facility] has accepted transfer and transfer is pending. In the meantime I recommend continued medical management per hospitalist and infectious disease. The patient understands and agrees with the treatment plan. 02/02/231746 <Electronically signed by Raphael Curtis DO> Cosigner Signature (if applicable): CC: Dr. Terri Nino MD; Dr. Raphael Curtis DO; Dr. Peter Thayer DO; Dr. Minda Cm MD; Dr. Calista Aburto MD~ Signed [facility] Work Phone: 1(407) 924-445409-20-2023 Progress note Author [facility] February 02, 2023 4:02pm Note Date/Time February 02, 2023 2:33pm [facility] Medical Records Department [address] [place] [address] Progress Note 02/02/23 1409 MR#: [id number] Acct: [id number] Name: MELISSA ELIAS Rep #:[id number] : 1965 57 From: Dina Maynard MD PCP: Dr. Peter Thayer DO Status:ADM IN Location: [place] [address] Subjective Subjective Patient seen and examined. He had no active complaints. He denied any fever, chills, cough, chest pain, palpitations or any other symptoms. He has remained hemodynamically stable. Objective Data Objective Data Vital Signs: Vital Signs Temp Pulse Resp BP Pulse Ox O2 Del Method O2 Flow Rate 97.5 F L 88 16 108/65 98 Nasal Cannula 3 02/02/23 08:21 02/02/23 08:21 02/02/23 08:21 02/02/23 08:21 02/02/23 08:21 02/02/23 08:49 02/02/23 08:21 Oxygen Flow Rate (L/min) 3 Oxygen Delivery Method Nasal Cannula Weight: 313 lb 15.012 oz Body Mass Index (BMI) 42.5 Intake & Output: Intake and Output for Last 24 Hours 01/31/23 02/01/23 02/02/23 23:59 23:59 23:59 Intake Total 1090 / 1240 1555.5 / 1555.5 Output Total 1600 / 1600 Balance 1090 / -160 -44.5 / -44.5 Lab / Micro Data 02/02/23 03:46 02/02/23 03:46 Labs: Laboratory Results - last 24 hr 02/01/23 14:43: POC Glucose 76 02/01/23 14:53: PT 14.5, INR 1.1, APTT 35.7, Phosphorus 4.2, Magnesium 2.4, Iron19 L, TIBC 250, Iron Saturation 7.6 L, Ferritin 1289 H, Troponin I High Sens 146H* 02/01/23 20:59: POC Glucose 35 L* 02/01/23 21:16: POC Glucose 73 L 02/01/23 21:47: POC Glucose 87 02/01/23 22:14: Troponin I High Sens 128 H* 02/01/23 23:38: APTT 88.4 H, Troponin I High Sens 123 H* 02/02/23 01:40: POC Glucose 81 02/02/23 03:45: MRSA (PCR) Negative 02/02/23 03:46: WBC 15.7 H, RBC 3.62 L, Hgb 8.3 L, Hct 28.0 L, MCV 77.3 L, MCH 22.9 L, MCHC 29.6 L, RDW Std Deviation 54.0 H, RDW Coeff of Mary 19.2 H, Plt Count 358, MPV 9.6, Immature Gran % (Auto) 0.400, Neut % (Auto) 76.7 H, Lymph % (Auto) 13.1 L, Hayes % (Auto) 8.5, Eos % (Auto) 0.8, Baso % (Auto) 0.5, Absolute Neuts (auto) 12.0 H, Absolute Lymphs (auto) 2.05, Nucleated RBC % 0, Sodium 133 L, Potassium 3.8, Chloride 97 L, Carbon Dioxide 30.0, Anion Gap 6, BUN 40 H, Creatinine 0.71, Estim Creat Clear Calc 129.03, Est GFR (MDRD) Af Amer 147, Est GFR (MDRD) Non-Af 122, BUN/Creatinine Ratio 56.2 H, Glucose 57 L, Hemoglobin A1c5.6, Calcium 8.2 L, Total Bilirubin 0.40, AST 163 H, ALT 55, Alkaline Phosphatase 122 H, Total Creatine Kinase 2416 H, Troponin I High Sens 156 H*, Total Protein 6.5, Albumin 2.1 L, Globulin 4.4 H, Albumin/Globulin Ratio 0.5 L, Triglycerides 154, Cholesterol 123, LDL Cholesterol 66, VLDL Cholesterol 31, HDLCholesterol 26 L 02/02/23 05:44: POC Glucose 34 L* 02/02/23 06:41: POC Glucose 124 H 02/02/23 06:42: APTT 77.7 H 02/02/23 13:24: APTT 55.1 H Micro: Microbiology 02/01/23 12:02 Urine Catheter - Bartlett Urine Culture - Preliminary GNR Poss Pseudomonas sp 02/01/23 12:16 Mucosa - Nasopharyngeal Respiratory Panel (PCR) - Final Radiography Diagnostic Testing: Radiology Impression Chest CTA 02/01/23 11:39 IMPRESSION: Bilateral pulmonary emboli worse on the right side as described. Right lower lobe infiltrate and small right pleural effusion. Destruction of the T9 vertebrae with acute kyphotic deformity at the T9-T10 level with possible osteomyelitis. Electronically Signed: Meño Arrington MD at 14:48 EDT , Lumbar Spine CT 02/01/23 11:39 IMPRESSION: Acute kyphotic deformity at the T9-T10 level with almost complete collapse and destruction of the T9 vertebrae. Multilevel interpedicular screw and sharif fixation with multilevel disc space narrowing in the facet joint osteoarthritis. Electronically Signed: Meño Arrington MD at 14:40 EDT , Echocardiogram 02/01/23 19:39 Interpretation Summary The estimated ejection fraction is 65 %. Unable to assess diastolic dysfunction. Ordering Physician: Terri Nino Referring Physician: Peter Thayer Performed By: Char Gtz RCS Physical Exam Const alert, oriented x3 and no apparent distress Constitutional Narrative: super morbid obesity General Appearance: cooperative HEENT normocephalic, head/scalp atraumatic, moist oral mucous membranes and oropharynxnormal Eyes PERRL and EOMs intact bilaterally Neck no lymphadenopathy, supple and no JVD Lymph Lymphatic: no lymphadenopathy noted and no lymphedema noted Resp Resp Narrative: mildly diminished breath sounds bibasally, no wheezes or crackles. On 3L of oxygen by nasal canula Cardio regular rate, regular rhythm, S1 normal heart sound, S2 normal heart sound and no murmurs GI normal to inspection, nondistended, normoactive bowel sounds, soft to palpation,non-tender and non-distended GI Narrative: obese abdomen Extremity normal capillary refill and no clubbing, cyanosis or edema Skin Skin Narrative: skin is very dry, cracked and peeling. Neuro CN's II-XII intact bilaterally Neuro Narrative: power in RUE and LUE is 5/5. Power in lower extremities is 0/5 Psych thought process normal, cooperative and affect normal Appearance: appropriate Assessment & Plan Assessment/Plan (1) Bilateral pulmonary embolism: (2) Rhabdomyolysis: (3) Community acquired pneumonia: (4) Acute osteomyelitis of spine: PLAN: Plan #Hypoxia due to right lower lobe pneumonia * complicated by BATOOL * on IV vancomycin and zosyn * sputum culture pending. COVID negative and respiratory panel negative * #Bilateral PE * as seen on CTA. * on heparin drip * * #Probable acute osteomyelitis of T9 * came in with severe chronic back pain * had a recent fall with L1 injury and resultant paraplegia * he recently had surgery in [place]. He is unable to say exactly what he had the surgery for * CT of the thoracic and lumbar spine showed acute kyphotic deformity at T9-T10 with almost complete collapse and destruction of the T9 vertebrae * MRi of the lumbar spine was ordered but not done as MRI department felt that per the CT lumbar spine images, he had multilevel screws and sharif fixation in the spine, this would limit the efficacy of the the MRI. * Spine surgery consulted. Dr Curtis reviewed images and recommended urgent transfer to a tertiary facility for evaluation for surgery due to complete collapse of T9 * on IV vancomycin, cefepime and flagyl. * records requested from Hospital in [place] where he had the spine surgery- per records from [facility] in [place], [place], he had left T10/T11 exploration of spina fusion with re-exploration of laminectomy and partial facetectomy and foraminotomy. * #Nonstemi * troponins were 151 on admission, and trended down to 123. * 2D echo showed Ef of 65%, unable to assess diastolic dysfunction. * on heparin drip. * this elevation in troponin can be explained by bilateral PE, and not really nonstemi. * #Unstageable sacral decubitus ulcer with eschar * present on admission. Wound care and plastic surgery on board * #UTI: * concern for colonisation due to chronic indwelling bartlett catheter * currently on antibiotics as above * ID on board. Urine cultures ordered * #Rhabdomyolysis: CPK was 4735. Continue gentle hydration and trend #Type 2 diabetes mellitus * Had several episodes of hypoglycemia since admission. All diabetes medication on hold. Being hydrated with D5 NS. * ISS. Acuchecks ACHS * * #Super morbid obesity. Complicates acute care, expected recovery and prognosis. #Paraplegia due to mechanical fall with resultant L1 injury * Recently had surgery in [place]. Records requested from [facility]. * DVT prophylaxis; on heparin drip due to bilateral PE Disposition: Awaiting transfer to tertiary center. [facility] not taking any transfers at the moment. Call back pending from [facility] Main campus. Patient was accepted at [facility] pending bed availability. However, I was subsequently informed by the [facility] transfer line that the spine surgeon spoke to Dr. Curtis and they agreed that what the patient likely had was a Charcot joint of the spine. In light of his numerous comorbidities such as bilateral PE and patient having an extensive decubitus ulcer, though [facility] spine surgeon did not think patient would be taken for surgery as he was too high risk. Recommendation now therefore is for medical optimization and that he follows up on outpatient basis. Charges/Coding Visit Charges Inpatient E&M: 74172 Subs Hosp L3 02/02/23 1553 <Electronically signed by Dina Maynard MD> Dina Maynard MD Cosigner Signature (if applicable): CC: ~ Signed ADDENDUM by Dr. Dina Maynard MD on 02/02/23 at 1602 Addendum [facility] called back and accepted patient. Plan is to [facility] to [facility]. 02/02/23 1602 <Electronically signed by Dina weir MD> Date _ Dina Maynard MD Cosigner Signature (if applicable): Date cc: ~* Signed [facility] Work Phone: 1(868) 916-877309-20-2023 Consult note Author Minda Moffett [facility] February 02, 2023 2:42pm Note Date/Time February 02, 2023 2:38pm [facility] Medical Records Department [address] [place] [address] Pharmacokinetic/Renal -Consult 02/02/23 1438 MR#: [id number] Acct: [id number] Name: MELISSA ELIAS Rep #:[id number] : 1965 57 From: Minda Moffett PCP: Dr. Peter Thayer, DO Status:ADM IN Location: [place] [address] Consult Antibiotic Management Pharmacy has been consulted to manage selected antiobiotic: Vancomycin Type of Intervention Type of Consult: Follow-up Suspected Infection Suspected Infection: Osteomyelitis and Pneumonia Prior Doses of Antibiotics Prior Doses of Antibiotics Received/Current Regimen: Current order is 1500mg iv q8h. Labs Labs: Sodium 133 mmol/L (136-145) L 02/02/23 03:46 Potassium 3.8 mmol/L (3.5-5.1) 02/02/23 03:46 Chloride 97 mmol/L (98-107) L 02/02/23 03:46 Carbon Dioxide 30.0 mmol/L (21.0-32.0) 02/02/23 03:46 Anion Gap 6 (5-15) 02/02/23 03:46 BUN 40 mg/dL (7-18) H 02/02/23 03:46 Creatinine 0.71 mg/dL (0.70-1.30) 02/02/23 03:46 Est GFR (MDRD) Af Amer 147 mL/min (>60) 02/02/23 03:46 Est GFR (MDRD) Non-Af 122 mL/min (>60) 02/02/23 03:46 BUN/Creatinine Ratio 56.2 RATIO (10-20) H 02/02/23 03:46 Glucose 57 mg/dL (74-106) L 02/02/23 03:46 Vancomycin Trough 31.0 ug/mL (5.0-15.0) H 02/02/23 13:24 Microbiology Microbiology: Microbiology 02/01/23 12:02 Urine Catheter - Bartlett Urine Culture - Preliminary GNR Poss Pseudomonas sp 02/01/23 12:16 Mucosa - Nasopharyngeal Respiratory Panel (PCR) - Final Dosing Weight Weight used for dosin kg Estimated Creatinine Clearance Estimated Creatinine Clearance: >120 Pharmacy Plan for Drug Dosing Pharmacy Plan for Drug Dosing: Trough today 8 hrs post dose was elevated at 31.0. Will hold further dosing until level <20. Random level ordered for tomorrow AM Pharmacy Service will continue to monitor and adjust dosing as required. Follow-Up Labs Follow-Up Labs: Trough: Vancomycin (random 02.03.23 0600) 02/02/23 1442 <Electronically signed by Minda Moffett> Date _ Minda Moffett Cosigner Signature (if applicable): Date CC: ~ Signed [facility] Work Phone: 1(690) 854-964209-20-2023 Consult note Author Minda Mcgeeninger [facility] February 02, 2023 2:14pm Note Date/Time February 02, 2023 2:10pm [facility] Medical Records Department [address] [place] [address] Consultation - Infectious Dx 02/02/23 1408 MR#: [id number] Acct: [id number] Name: MELISSA ELIAS Rep #:[id number] : 1965 57 From: Minda ramírez MD PCP: Dr. Peter Thayer, DO Status:ADM IN Location: [place] [address] Assessment & Plan Assessment/Plan (1) Pressure injury, unstageable, with eschar: (2) Bilateral pulmonary embolism: (3) Acute osteomyelitis of spine: PLAN: Treating for osteo, spine surgery to see, MRI pending. Recent surgery in [place], hardware in place. Will change to vanc/cefepime/flagyl for better spine penetration compared to zosyn. Ucx with PsA - heavy pyuria, abx as above cellulitis and decub ulcer - wound care following. Will follow, thank you (4) Cellulitis of leg without foot, right: (5) Cellulitis of leg without foot, left: HPI Consult Data Date of Consult: 02/02/23 HPI Narrative Reason for Consultation: osteo HPI Narrative: MELISSA ELIAS, is a 57 M with h/o Morbid obesity, Chronic BL LE Lymphedema/PVD, Severe chronic back pain with nonambulatory status complicated by mechanical fall 11/2022 with unfortunate L1 injury and paraplegic status following, HTN, Allergic rhinitis, BATOOL on BIPAP who presents to the [facility] ED on 02/01/23 with history of spinal surgery in [place] 01/27/2023, presented with confusion, not feeling well. CT showed possible in T-spine. Chronic bartlett, hasnot noticed any change in urine. Full ROS performed and neg except as noted above. [facility] Medical History Anemia BMI greater than 40 Former tobacco use H/o back surgery HTN (hypertension) Lymphedema BATOOL treated with BiPAP Paraplegia Type 2 diabetes mellitus Home Medications B-complex with vitamin C 1 tab PO DAILY supplement 03/03/20 [History Last Taken Unknown] ascorbate calcium (vitamin C) 500 mg tablet 500 mg PO DAILY supplement 03/03/20 [History Last Taken Unknown] calcium carbonate 500 mg calcium (1,250 mg) tablet (Calcium 500) 500 mg PO DAILYsupplement 03/03/20 [History Last Taken Unknown] cholecalciferol (vitamin D3) 50 mcg (2,000 unit) capsule 50 mcg PO DAILY supplement 03/03/20 [History Last Taken Unknown] diclofenac sodium 50 mg tablet,delayed release 50 mg PO BID supplement 03/03/20 [History Last Taken Unknown] fluticasone propionate 50 mcg/actuation nasal spray,suspension (Flonase Allergy Relief) 1 spray intranasal DAILY shortness of breath 03/03/20 [History Last Taken Unknown] levocetirizine 5 mg tablet (24HR Allergy Relief) 5 mg PO DAILY allergies 03/03/20 [History Last Taken 01/31/23] olmesartan 40 mg-hydrochlorothiazide 25 mg tablet 1 ea PO DAILY blood pressure 03/03/20 [History Last Taken 01/31/23] oxycodone-acetaminophen 7.5 mg-325 mg tablet 1 ea PO Q4H PRN Pain 03/03/20 [History Last Taken Unknown] propranolol 10 mg tablet 10 mg PO DAILY Blood pressure 03/03/20 [History Last Taken 01/31/23] tizanidine 4 mg tablet 1 ea PO TID PRN Spasms 03/03/20 [History Last Taken 01/31/23] zinc 50 mg tablet 50 mg PO DAILY supplement 03/03/20 [History Last Taken 01/31/23] Allergy/AdvReac Type Severity Reaction Status Date / Time No Known Allergies Allergy Verified 11/15/22 18:01 Family History Mother Hypertension Hypotension Diabetes Arthritis Father Hypertension Hypotension Heart disease Status post double vessel coronary artery bypass angina Arthritis Grandfather Prostate cancer Grandmother Uterine cancer Surgical History (Updated 02/01/23 @ 20:[address] Terri Nino MD) H/O sinus surgery Hx of spinal surgery Social History household members: other details: parents current occupational status: employed and retired Smoking Status: Former smoker alcohol intake: never substance use type: does not use do you feel safe at home: Yes Physical Exam Const alert and no apparent distress General Appearance: cooperative HEENT normocephalic and head/scalp atraumatic Eyes PERRL and EOMs intact bilaterally Neck supple and No nodes Resp normal air movement and clear to auscultation bilaterally Cardio regular rate and regular rhythm GI soft to palpation, non-tender and non-distended Extremity General Extremity: edema Skin Skin Narrative: reviewed wound photos Neuro CN's II-XII intact bilaterally Neuro Narrative: paraplegic Lab / Micro Data Attestation: I reviewed the patient's lab results. 02/02/23 03:46 02/02/23 03:46 Labs: Laboratory Results - last 24 hr 02/01/23 14:43: POC Glucose 76 02/01/23 14:53: PT 14.5, INR 1.1, APTT 35.7, Phosphorus 4.2, Magnesium 2.4, Iron19 L, TIBC 250, Iron Saturation 7.6 L, Ferritin 1289 H, Troponin I High Sens 146H* 02/01/23 20:59: POC Glucose 35 L* 02/01/23 21:16: POC Glucose 73 L 02/01/23 21:47: POC Glucose 87 02/01/23 22:14: Troponin I High Sens 128 H* 02/01/23 23:38: APTT 88.4 H, Troponin I High Sens 123 H* 02/02/23 01:40: POC Glucose 81 02/02/23 03:45: MRSA (PCR) Negative 02/02/23 03:46: WBC 15.7 H, RBC 3.62 L, Hgb 8.3 L, Hct 28.0 L, MCV 77.3 L, MCH 22.9 L, MCHC 29.6 L, RDW Std Deviation 54.0 H, RDW Coeff of Mary 19.2 H, Plt Count 358, MPV 9.6, Immature Gran % (Auto) 0.400, Neut % (Auto) 76.7 H, Lymph % (Auto) 13.1 L, Hayes % (Auto) 8.5, Eos % (Auto) 0.8, Baso % (Auto) 0.5, Absolute Neuts (auto) 12.0 H, Absolute Lymphs (auto) 2.05, Nucleated RBC % 0, Sodium 133 L, Potassium 3.8, Chloride 97 L, Carbon Dioxide 30.0, Anion Gap 6, BUN 40 H, Creatinine 0.71, Estim Creat Clear Calc 129.03, Est GFR (MDRD) Af Amer 147, Est GFR (MDRD) Non-Af 122, BUN/Creatinine Ratio 56.2 H, Glucose 57 L, Hemoglobin A1c5.6, Calcium 8.2 L, Total Bilirubin 0.40, AST 163 H, ALT 55, Alkaline Phosphatase 122 H, Total Creatine Kinase 2416 H, Troponin I High Sens 156 H*, Total Protein 6.5, Albumin 2.1 L, Globulin 4.4 H, Albumin/Globulin Ratio 0.5 L, Triglycerides 154, Cholesterol 123, LDL Cholesterol 66, VLDL Cholesterol 31, HDLCholesterol 26 L 02/02/23 05:44: POC Glucose 34 L* 02/02/23 06:41: POC Glucose 124 H 02/02/23 06:42: APTT 77.7 H 02/02/23 13:24: APTT 55.1 H Micro: Microbiology 02/01/23 12:02 Urine Catheter - Bartlett Urine Culture - Preliminary GNR Poss Pseudomonas sp 02/01/23 12:16 Mucosa - Nasopharyngeal Respiratory Panel (PCR) - Final Radiology Impression Chest CTA 02/01/23 11:39 IMPRESSION: Bilateral pulmonary emboli worse on the right side as described. Right lower lobe infiltrate and small right pleural effusion. Destruction of the T9 vertebrae with acute kyphotic deformity at the T9-T10 level with possible osteomyelitis. Electronically Signed: Meño Arrington MD at 14:48 EDT , Lumbar Spine CT 02/01/23 11:39 IMPRESSION: Acute kyphotic deformity at the T9-T10 level with almost complete collapse and destruction of the T9 vertebrae. Multilevel interpedicular screw and sharif fixation with multilevel disc space narrowing in the facet joint osteoarthritis. Electronically Signed: Meño Arrington MD at 14:40 EDT , Echocardiogram 02/01/23 19:39 Interpretation Summary The estimated ejection fraction is 65 %. Unable to assess diastolic dysfunction. Ordering Physician: Terri Nino Referring Physician: Peter Thyaer Performed By: Char Gtz RCS 02/02/23 1414 <Electronically signed by Minda Cm MD> Cosigner Signature (if applicable): CC: Dr. Terri Nino MD; Dr. Raphael Curtis DO; Dr. Peter Thayer DO; Dr. Minda Cm MD; Dr. Calista Aburto MD~ Signed [facility] Work Phone: [phone]) 602-295709-20-2023 Consult note Author Calista Aburto [facility] February 02, 2023 12:43pm Note Date/Time February 02, 2023 11:13am [facility] Medical Records Department [address] [place] [address] Consultation 02/02/23 1111 MR#: [id number] Acct: [id number] Name: MELISSA ELIAS Rep #:[id number] : 1965 57 From: Calista Aburto MD PCP: Dr. Peter Thayer, DO Status:ADM IN Location: [place] [address] Assessment & Plan Assessment/Plan (1) Pressure injury, unstageable, with eschar: PLAN: * Control of drainage Alginate dressing Frequent replacement of dry dressings beneath pt. * Prevent/control cellulitis Suggest using Silvadene in the peripheral areas that are currently partialthickness Will need to asses hygiene issues with wound proximity to rectum * Obese status, insensate area Off load the area to prevent further damage in light of insensate status Consider air-fluidized therapy bed ([place]) to offload and control drainage PLAN: Plan HPI Consult Data Date of Consult: 02/02/23 HPI Narrative Reason for Consultation: Buttock/back wound HPI Narrative: The pt is a 57 y/o male who was living at home prior to this admission. Review of his medical record reveals a previous hospitalization in November without mentionof the back/buttock wound. He states he is insensate in his lower extremities. He had back surgery in [place] within the last 2 weeks. He traveled to [place] by car. He was transported to the ER for change in mental status where he was found to have the buttock wound among multiple other issues. His medical history is significant for obesity, DM, and former smoker. Labs of note: Hgb 8.8, and WBC 15.7. [facility] Medical History (Updated 02/02/23 @ 12:[address] Calista Aburto MD) Anemia BMI greater than 40 Former tobacco use H/o back surgery HTN (hypertension) Lymphedema BATOOL treated with BiPAP Paraplegia Type 2 diabetes mellitus Home Medications B-complex with vitamin C 1 tab PO DAILY supplement 03/03/20 [History Last Taken Unknown] ascorbate calcium (vitamin C) 500 mg tablet 500 mg PO DAILY supplement 03/03/20 [History Last Taken Unknown] calcium carbonate 500 mg calcium (1,250 mg) tablet (Calcium 500) 500 mg PO DAILYsupplement 03/03/20 [History Last Taken Unknown] cholecalciferol (vitamin D3) 50 mcg (2,000 unit) capsule 50 mcg PO DAILY supplement 03/03/20 [History Last Taken Unknown] diclofenac sodium 50 mg tablet,delayed release 50 mg PO BID supplement 03/03/20 [History Last Taken Unknown] fluticasone propionate 50 mcg/actuation nasal spray,suspension (Flonase Allergy Relief) 1 spray intranasal DAILY shortness of breath 03/03/20 [History Last Taken Unknown] levocetirizine 5 mg tablet (24HR Allergy Relief) 5 mg PO DAILY allergies 03/03/20 [History Last Taken 01/31/23] olmesartan 40 mg-hydrochlorothiazide 25 mg tablet 1 ea PO DAILY blood pressure 03/03/20 [History Last Taken 01/31/23] oxycodone-acetaminophen 7.5 mg-325 mg tablet 1 ea PO Q4H PRN Pain 03/03/20 [History Last Taken Unknown] propranolol 10 mg tablet 10 mg PO DAILY Blood pressure 03/03/20 [History Last Taken 01/31/23] tizanidine 4 mg tablet 1 ea PO TID PRN Spasms 03/03/20 [History Last Taken 01/31/23] zinc 50 mg tablet 50 mg PO DAILY supplement 03/03/20 [History Last Taken 01/31/23] Allergy/AdvReac Type Severity Reaction Status Date / Time No Known Allergies Allergy Verified 11/15/22 18:01 Family History Mother Hypertension Hypotension Diabetes Arthritis Father Hypertension Hypotension Heart disease Status post double vessel coronary artery bypass angina Arthritis Grandfather Prostate cancer Grandmother Uterine cancer Surgical History (Updated 02/01/23 @ 20:[address] Terri Nino MD) H/O sinus surgery Hx of spinal surgery Social History household members: other details: parents current occupational status: employed and retired Smoking Status: Former smoker alcohol intake: never substance use type: does not use do you feel safe at home: Yes Physical Exam Narrative Pt with a 34 x 26cm eschar of the right buttock. This extends anteriorly to the rectum and posterior scrotum. This appears to be c/w pressure from sitting withweight shifted to the right side. Areas of the periphery appear to be partialthickness. There are a few areas of full thickness eschar. No purulent drainage noted. There is a copious amount of serous-like drainage in the chux pad beneath him. Lab / Micro Data 02/02/23 03:46 02/02/23 03:46 Labs: Laboratory Results - last 24 hr 02/01/23 11:27: POC Glucose 112 H 02/01/23 11:45: WBC 14.3 H, RBC 4.12 L, Hgb 9.6 L, Hct 31.0 L, MCV 75.2 L, MCH 23.3 L, MCHC 31.0 L, RDW Std Deviation 52.5 H, RDW Coeff of Mary 19.3 H, Plt Count 337, MPV 9.7, Immature Gran % (Auto) 0.600, Neut % (Auto) 75.1 H, Lymph % (Auto) 11.1 L, Hayes % (Auto) 11.8 H, Eos % (Auto) 1.0, Baso % (Auto) 0.4, Absolute Neuts (auto) 10.8 H, Absolute Lymphs (auto) 1.58, Nucleated RBC % 0, Diff Path Review September, PT 14.8, INR 1.2, APTT 34.9, Sodium 127 L, Potassium 3.6, Chloride 91 L, Carbon Dioxide 30.0, Anion Gap 6, BUN 49 H, Creatinine 0.75,Estim Creat Clear Calc 104.05, Est GFR (MDRD) Af Amer 139, Est GFR (MDRD) Non-Af115, BUN/Creatinine Ratio 65.4 H, Glucose 77, Lactic Acid 0.9, Calcium 8.4 L, Total Bilirubin 0.40, AST 244 H, ALT 62 H, Alkaline Phosphatase 135 H, Total Creatine Kinase 4735 H, Troponin I High Sens 151 H*, Total Protein 7.2, Albumin 2.4 L, Globulin 4.8 H, Albumin/Globulin Ratio 0.5 L 02/01/23 12:02: Urine Color Yellow, Urine Clarity Sl. Cloudy, Urine pH 6.0, Ur Specific [place] 1.010, Urine Protein 15 H, Urine Glucose (UA) Normal, Urine Ketones Negative, Urine Occult Blood 150 H, Urine Nitrite Negative, Urine Bilirubin Negative, Urine Urobilinogen Normal, Ur Leukocyte Esterase 500 H, Urine RBC 0 SEEN, Urine WBC >100 SEEN, Ur Squamous Epith Cells 0 SEEN, Urine Bacteria 0 SEEN, Urine Mucus 0 SEEN 02/01/23 12:14: POC Glucose 77 02/01/23 14:43: POC Glucose 76 02/01/23 14:53: PT 14.5, INR 1.1, APTT 35.7, Phosphorus 4.2, Magnesium 2.4, Iron19 L, TIBC 250, Iron Saturation 7.6 L, Ferritin 1289 H, Troponin I High Sens 146H* 02/01/23 20:59: POC Glucose 35 L* 02/01/23 21:16: POC Glucose 73 L 02/01/23 21:47: POC Glucose 87 02/01/23 22:14: Troponin I High Sens 128 H* 02/01/23 23:38: APTT 88.4 H, Troponin I High Sens 123 H* 02/02/23 01:40: POC Glucose 81 02/02/23 03:45: MRSA (PCR) Negative 02/02/23 03:46: WBC 15.7 H, RBC 3.62 L, Hgb 8.3 L, Hct 28.0 L, MCV 77.3 L, MCH 22.9 L, MCHC 29.6 L, RDW Std Deviation 54.0 H, RDW Coeff of Mary 19.2 H, Plt Count 358, MPV 9.6, Immature Gran % (Auto) 0.400, Neut % (Auto) 76.7 H, Lymph % (Auto) 13.1 L, Hayes % (Auto) 8.5, Eos % (Auto) 0.8, Baso % (Auto) 0.5, Absolute Neuts (auto) 12.0 H, Absolute Lymphs (auto) 2.05, Nucleated RBC % 0, Sodium 133 L, Potassium 3.8, Chloride 97 L, Carbon Dioxide 30.0, Anion Gap 6, BUN 40 H, Creatinine 0.71, Estim Creat Clear Calc 129.03, Est GFR (MDRD) Af Amer 147, Est GFR (MDRD) Non-Af 122, BUN/Creatinine Ratio 56.2 H, Glucose 57 L, Hemoglobin A1c5.6, Calcium 8.2 L, Total Bilirubin 0.40, AST 163 H, ALT 55, Alkaline Phosphatase 122 H, Total Creatine Kinase 2416 H, Troponin I High Sens 156 H*, Total Protein 6.5, Albumin 2.1 L, Globulin 4.4 H, Albumin/Globulin Ratio 0.5 L, Triglycerides 154, Cholesterol 123, LDL Cholesterol 66, VLDL Cholesterol 31, HDLCholesterol 26 L 02/02/23 05:44: POC Glucose 34 L* 02/02/23 06:41: POC Glucose 124 H 02/02/23 06:42: APTT 77.7 H Micro: Microbiology 02/01/23 12:02 Urine Catheter - Bartlett Urine Culture - Preliminary GNR Poss Pseudomonas sp 02/01/23 12:16 Mucosa - Nasopharyngeal Respiratory Panel (PCR) - Final ABG Data ABG results: ABG 02/01/23 12:35 Specimen Type ART Sample Site R Radial pH 7.37 Bicarbonate Actual 27.9 H Total CO2 29 Base Excess 3 H O2 Saturation 94 L O2 % 2.0 ABG pCO2 48.1 H ABG pO2 73 L Leoncio Test Positive O2 Delivery Device Cannula Vent Mode Not entered Radiology Impression Chest CTA 02/01/23 11:39 IMPRESSION: Bilateral pulmonary emboli worse on the right side as described. Right lower lobe infiltrate and small right pleural effusion. Destruction of the T9 vertebrae with acute kyphotic deformity at the T9-T10 level with possible osteomyelitis. Electronically Signed: Meño Arrington MD at 14:48 EDT Reading Location ID and State: [id number] / [place] , Service support , Lumbar Spine CT 02/01/23 11:39 IMPRESSION: Acute kyphotic deformity at the T9-T10 level with almost complete collapse and destruction of the T9 vertebrae. Multilevel interpedicular screw and sharif fixation with multilevel disc space narrowing in the facet joint osteoarthritis. Electronically Signed: Meño Arrington MD at 14:40 EDT , Chest X-Ray 02/01/23 12:15 IMPRESSION: Right lower lobe infiltrate. Electronically Signed: Meño Arrington MD at 12:38 EDT Reading Location ID and State: [id number] / [place] , Service support , 02/02/23 1243 <Electronically signed by Calista Aburto MD> Cosigner Signature (if applicable): CC: Dr. Terri Nino MD; Dr. Peter Thayer DO; Dr. Ronald Fam DO; Dr. Minda Cm MD; Dr. Calista Aburto MD~ Signed [facility] Work Phone: 1(656) 278-649009-20-2023 Progress note Author [facility] February 02, 2023 3:43am Note Date/Time February 02, 2023 3:43am [facility] Medical Records Department [address] [place] [address] Progress Note - Hospitalist 02/02/23338 MR#: [id number] Acct: [id number] Name: MELISSA ELIAS Rep #:[id number] : 1965 57 From: Percy pickard DO PCP: Dr. Peter Thayer DO Status:ADM IN Location: [place] [address] Hospitalist Note Received message from nursing staff earlier this evening that patient had continued drowsiness and poor responsiveness on arrival to the floor after transfer from the ED. Blood glucose was in the 80s at that time. Patient notably had blood gas drawn in the ED that was normal. Patient had spontaneous improvement in mentation after about 30 minutes to 1 hour from original message. At that time, patient reported back pain and worsening of his known upper extremity tremors. Patient's home medications havebeen held on admission, as there was concern that he could not swallow pills dueto his altered mentation. Restarted patient's home oxycodone and tizanidine. Can consider restarting other home medications for patient as needed. 02/02/23 0343 <Electronically signed by Percy Price DO> Cosigner Signature (if applicable): CC: ~ Signed [facility] Work Phone: 1(355) 802-165909-19-2023 History and physical note Author Terri Nino [facility] February 01, 2023 8:17pm Note Date/Time February 01, 2023 3:23pm [facility] Medical Records Department [address] [place] [address] H&P Exam - Hospitalist 02/01/23 1522 MR#: [id number] Acct: [id number] Name: MELISSA ELIAS Rep #:[id number] : 1965 57 From: Terri Nino MD PCP: Dr. Peter Thayer, DO Status:ADM IN Location: [place] [address] HPI - General General Date of Admission: 02/01/23 Date of Service: 02/01/23 Chief Complaint: Low BP, altered mental status. HPI Narrative The patient is a 57 y/o M w/ PMHx: Former tobacco use, Morbid obesity, Chronic BL LE Lymphedema/PVD, Severe chronic back pain with nonambulatory status complicated by mechanical fall 11/2022 with unfortunate L1 injury and paraplegic status following, HTN, Allergic rhinitis, BATOOL on BIPAP who presents to the [facility] ED on 02/01/23 with history of spinal surgery in [place] 01/27/2023 with onset of lower blood sugars and altered mental status living at home alone however his mother and his cousins have been living with them with reported blood sugars in the mid to high 40s with D50 administered with improvement of mental status per report but ongoing diaphoresis and lethargy prompting ED evaluation. Patient toni with a chronic wound to the lower back reportedly since December that the family has been monitoring at home. Work- up in the ED included T97.3, heart rate73, BP 101/52, respiratory rate 12, initially 89% on room air with improvement to 99% on 2 L nasal cannula, CBC with WBC 14.3, hemoglobin 9.6, MCV 75.2, platelet 337 with left shift, unremarkable coags, ABG with pH 7.37, bicarb 27.9,O2 saturation 94%, PCO2 48.1, PO2 73 on nasal cannula, CMP with sodium 127, chloride 91, BUN/creatinine 49/0.75, lactic acid 0.9, AST/ALT 244/62, alk phos 135, total creatinine kinase 4735, troponin 151, urinalysis noted to be cloudy, specific remedy 1.010, protein 15, 150 occult blood, negative nitrite, leukocyteEstrace 500 with greater than 100 urine WBCs although no urine bacteria noted, urine culture pending per ED, blood culture x2 pending per ED, chest x- ray with evidence of a right lower lobe infiltrate, chest CTA with bilateral pulm emboli worse in the right, right lower lobe infiltrate and small right pleural effusion, instruction of the T9 vertebrae as well as acute kyphotic deformity atT9-10 with questionable osteomyelitis, CT of the lumbar spine with acute kyphotic deformity at the T9-T10 level with almost complete collapse and distraction of the T9 vertebrae, multilevel interpedicular screw and sharif fixation with multilevel disc space narrowing in the facet joint osteoarthritis. In the ED patient ministered normal saline bolus, D50 water and, IV vancomycin,IV Zosyn, Zofran 4 mg IV x1, fentanyl 50 mcg IV x1 and eventually initiated on heparin drip. [facility] Medical History Anemia BMI greater than 40 Former tobacco use H/o back surgery HTN (hypertension) Lymphedema BATOOL treated with BiPAP Paraplegia Type 2 diabetes mellitus Home Medications B-complex with vitamin C 1 tab PO DAILY 03/03/20 [History Last Taken Unknown] ascorbate calcium (vitamin C) 500 mg tablet 500 mg PO DAILY 03/03/20 [History Last Taken Unknown] calcium carbonate 500 mg calcium (1,250 mg) tablet (Calcium 500) 500 mg PO DAILY03/03/20 [History Last Taken Unknown] cholecalciferol (vitamin D3) 50 mcg (2,000 unit) capsule 50 mcg PO DAILY 03/03/20 [History Last Taken Unknown] diclofenac sodium 50 mg tablet,delayed release 50 mg PO BID 03/03/20 [History Last Taken Unknown] fluticasone propionate 50 mcg/actuation nasal spray,suspension (Flonase Allergy Relief) 1 spray intranasal DAILY 03/03/20 [History Last Taken Unknown] levocetirizine 5 mg tablet (24HR Allergy Relief) 5 mg PO DAILY 03/03/20 [History Last Taken Unknown] olmesartan 40 mg-hydrochlorothiazide 25 mg tablet 1 ea PO DAILY 03/03/20 [History Last Taken Unknown] oxycodone-acetaminophen 7.5 mg-325 mg tablet 1 ea PO Q4H PRN Pain 03/03/20 [History Last Taken Unknown] propranolol 10 mg tablet 10 mg PO DAILY 03/03/20 [History Last Taken Unknown] tizanidine 4 mg tablet 1 ea PO TID PRN Spasms 03/03/20 [History Last Taken Unknown] zinc 50 mg tablet 50 mg PO DAILY 03/03/20 [History Last Taken Unknown] Allergy/AdvReac Type Severity Reaction Status Date / Time No Known Allergies Allergy Verified 11/15/22 18:01 Family History Mother Hypertension Hypotension Diabetes Arthritis Father Hypertension Hypotension Heart disease Status post double vessel coronary artery bypass angina Arthritis Grandfather Prostate cancer Grandmother Uterine cancer Surgical History (Updated 02/01/23 @ 20:[address] Terri Nino MD) H/O sinus surgery Hx of spinal surgery Social History household members: other details: parents current occupational status: employed and retired Smoking Status: Former smoker alcohol intake: never substance use type: does not use do you feel safe at home: Yes ROS ROS Narrative Admission Review of Systems: CONSTITUTIONAL: No weight loss, fever, chills, + weakness or fatigue. HEENT: Eyes: No visual loss, blurred vision, double vision or yellow sclerae. Ears, Nose, Throat: No hearing loss, sneezing, congestion, runny nose or sore throat. SKIN: + Significant eschar to the posterior region, healing heel ulcers, variousecchymotic changes abrasions, bilateral lower extremity venous stasis skin changes. CARDIOVASCULAR: No chest pain, chest pressure or chest discomfort, palpitations,edema, orthopnea, syncopal events. RESPIRATORY: No shortness of breath, cough or sputum, wheezing, hemoptysis. GASTROINTESTINAL: + anorexia. No nausea, vomiting or diarrhea, abdominal pain, melena, BRBPR. GENITOURINARY: Chronic indwelling Bartlett catheter. + No reported current dysuria. NEUROLOGICAL: + Lethargy, confusion, chronic significant debility with paraplegia and sensation decreases to the lumbar region and downward, no headache, dizziness, syncope, change in bowel or bladder control, seizure. MUSCULOSKELETAL: + muscle, back pain, joint pain or stiffness. HEMATOLOGIC: +anemia, easy bleeding or bruising. LYMPHATICS: No enlarged nodes. No history of splenectomy. PSYCHIATRIC: No history of depression or anxiety. ENDOCRINOLOGIC: No reports of sweating, cold or heat intolerance. No polyuria orpolydipsia. ALLERGIES: No history of asthma, hives, eczema or rhinitis. Vital Signs Vital Signs Vital Signs: 02/01/23 11:16 02/01/23 11:16 02/01/23 11:38 Temperature 97.3 F L Temperature Source Temporal Pulse Rate 73 Respiratory Rate 12 Respiratory Effort Normal Respiratory Pattern Normal Blood Pressure 101/52 L Blood Pressure Mean 68 Pulse Ox 89 Oxygen Delivery Method Room Air Room Air Oxygen Flow Rate (L/min) 02/01/23 12:20 02/01/23 13:48 02/01/23 14:32 Temperature 98.2 F 98.3 F 96.9 F L Temperature Source Temporal Temporal Temporal Pulse Rate 78 84 86 Respiratory Rate 12 13 13 Respiratory Effort Respiratory Pattern Blood Pressure 110/66 126/61 H 131/71 H Blood Pressure Mean 80 82 91 Pulse Ox 99 98 98 Oxygen Delivery Method Nasal Cannula Nasal Cannula Nasal Cannula Oxygen Flow Rate (L/min) 2 2 2 02/01/23 15:00 Temperature 97 F L Temperature Source Temporal Pulse Rate 86 Respiratory Rate 11 L Respiratory Effort Respiratory Pattern Blood Pressure 104/71 Blood Pressure Mean 82 Pulse Ox 97 Oxygen Delivery Method Nasal Cannula Oxygen Flow Rate (L/min) 2 Weight Weight: 317 lb 7.45 oz Body Mass Index (BMI) 49.7 Physical Exam Narrative Physical Examination: General: Awake, alert, oriented to self, place and some recent events but very fatigued and lethargic, remains cooperative, laying in the ED bed, ill- appearing. Skin: Normal color, normal turgor, no icterus, no cyanosis except for significant various staged ecchymotic changes, bilateral lower extremity venous stasis skin changes, chronic right heel ulcer that is healing well, mild intertrigo, significant posterior lumbar and buttock right greater than left superficial eschar with no current purulent drainage or foul smell. HEENT: AT/NC, EOMI, PERRLA, dry MM, no carotid bruits or JVD noted; however, thickened neck makes evaluation difficult. Lungs: CTA bilaterally, moderate effort, mild decrease BL bases, no rales, ronchi or wheezing. Heart: Tachycardic with regular rhythm; no gallop, rub audible. Abdomen: Soft, morbidly obese, NTTP, distant BS, difficult to assess distention and HSM given habitus. Extremities: No cyanosis, no clubbing, significant bilateral lower extremity lymphedema with bilateral lower extremity stasis skin changes noted. Neurological: Patient awake, alert, oriented as noted, cognitive function improving but still not baseline intact; pupils equally reactive to light and accommodation, cranial nerves grossly normal, paraplegic with decreased sensation to lower extremities chronically, strength severely globally decreasedsecondary to acute presentation complicated by underlying history. Psychiatric: Affect appears flat, fatigued, ill-appearing, no acute evidence of depressive or anxiety feelings. Results Lab / Micro Data 02/01/23 11:45 02/01/23 11:45 Labs: Laboratory Results - last 24 hr 02/01/23 11:27: POC Glucose 112 H 02/01/23 11:45: WBC 14.3 H, RBC 4.12 L, Hgb 9.6 L, Hct 31.0 L, MCV 75.2 L, MCH 23.3 L, MCHC 31.0 L, RDW Std Deviation 52.5 H, RDW Coeff of Mary 19.3 H, Plt Count 337, MPV 9.7, Immature Gran % (Auto) 0.600, Neut % (Auto) 75.1 H, Lymph % (Auto) 11.1 L, Hayes % (Auto) 11.8 H, Eos % (Auto) 1.0, Baso % (Auto) 0.4, Absolute Neuts (auto) 10.8 H, Absolute Lymphs (auto) 1.58, Nucleated RBC % 0, Diff Path Review September, PT 14.8, INR 1.2, APTT 34.9, Sodium 127 L, Potassium 3.6, Chloride 91 L, Carbon Dioxide 30.0, Anion Gap 6, BUN 49 H, Creatinine 0.75,Estim Creat Clear Calc 104.05, Est GFR (MDRD) Af Amer 139, Est GFR (MDRD) Non-Af115, BUN/Creatinine Ratio 65.4 H, Glucose 77, Lactic Acid 0.9, Calcium 8.4 L, Total Bilirubin 0.40, AST 244 H, ALT 62 H, Alkaline Phosphatase 135 H, Total Creatine Kinase 4735 H, Troponin I High Sens 151 H*, Total Protein 7.2, Albumin 2.4 L, Globulin 4.8 H, Albumin/Globulin Ratio 0.5 L 02/01/23 12:02: Urine Color Yellow, Urine Clarity Sl. Cloudy, Urine pH 6.0, Ur Specific [place] 1.010, Urine Protein 15 H, Urine Glucose (UA) Normal, Urine Ketones Negative, Urine Occult Blood 150 H, Urine Nitrite Negative, Urine Bilirubin Negative, Urine Urobilinogen Normal, Ur Leukocyte Esterase 500 H, Urine RBC 0 SEEN, Urine WBC >100 SEEN, Ur Squamous Epith Cells 0 SEEN, Urine Bacteria 0 SEEN, Urine Mucus 0 SEEN 02/01/23 12:14: POC Glucose 77 02/01/23 14:43: POC Glucose 76 Micro: Microbiology 02/01/23 12:16 Mucosa - Nasopharyngeal Respiratory Panel (PCR) - Final ABG Data ABG results: ABG 02/01/23 12:35 Specimen Type ART Sample Site R Radial pH 7.37 Bicarbonate Actual 27.9 H Total CO2 29 Base Excess 3 H O2 Saturation 94 L O2 % 2.0 ABG pCO2 48.1 H ABG pO2 73 L Leoncio Test Positive O2 Delivery Device Cannula Vent Mode Not entered Radiology Impression Chest CTA 02/01/23 11:39 IMPRESSION: Bilateral pulmonary emboli worse on the right side as described. Right lower lobe infiltrate and small right pleural effusion. Destruction of the T9 vertebrae with acute kyphotic deformity at the T9-T10 level with possible osteomyelitis. Electronically Signed: Meño Arrington MD at 14:48 EDT , Lumbar Spine CT 02/01/23 11:39 IMPRESSION: Acute kyphotic deformity at the T9-T10 level with almost complete collapse and destruction of the T9 vertebrae. Multilevel interpedicular screw and sharif fixation with multilevel disc space narrowing in the facet joint osteoarthritis. Electronically Signed: Meño Arrington MD at 14:40 EDT , Chest X-Ray 02/01/23 12:15 IMPRESSION: Right lower lobe infiltrate. Electronically Signed: Meño Arrington MD at 12:38 EDT , Assessment & Plan Assessment/Plan (1) Bilateral pulmonary embolism: PLAN: Plan The patient is a 57 y/o M w/ PMHx: Former tobacco use, Morbid obesity, Chronic BL LE Lymphedema/PVD, Severe chronic back pain with nonambulatory status complicated by mechanical fall 11/2022 with unfortunate L1 injury and paraplegic status following, HTN, Allergic rhinitis, BATOOL on BIPAP who presents to the [facility] ED on 02/01/23 with history of spinal surgery in [place] 01/27/2023 with onset of lower blood sugars and altered mental status living at home alone however his mother and his cousins have been living with them with reported blood sugars in the mid to high 40s with D50 administered with improvement of mental status per report but ongoing diaphoresis and lethargy prompting ED evaluation. #1. Acute Encephalopathy, Multifactorial, secondary to Acute Hypoxia and ABG evidence Hypercarbia secondary to Acute RLL Pneumonia complicated by underlying BATOOL likely as noted, possible Aspiration Component as well as BL pulmonary emboli (R>L) likely secondary to recent significant immobility in addition to #2-#9: Will admit to PCU, maintain on oxygen with wean as tolerated to room air,PRN albuterol, maintained on IV Zosyn and Vancomycin with pending MRSA screen with de-escalation of antibiotic therapy pending results as well as #2 and #3, will maintain on heparin drip for BL PE likely secondary to immobility secondaryto recent surgery and issues with paraplegia, HOB, IS parameters w/ pending sputum cultures, full respiratory viral panel and urine antigens. Bld cx x 2 obtained in the ED. PT/OT/ST consultations as well as CM for discharge planning. #2. Severe chronic back pain with nonambulatory status complicated by recent history of fall with L1 spinal injury with resulting paraplegic status followingstatus post recent spinal surgery 01/27/2023 in [place] with questionable osteomyelitis: Complicates presentation, will maintain on fall and aspiration precautions, frequent positional changes, offloading, PT/OT/case management consulted for discharge planning. From review of records 11/17/2022 neuro consultation with lower extremity significant debility worsened from prior with inability to move his legs aside from slight movement in the toes with decreasedsensation concurrently with CT of the lumbar spine with mild degree of central canal stenosis L2-3 and L3-4 with bilateral neural foraminal stenosis status post L4-5 laminectomy and interpedicular screw fixation with recommendation for stat MRI lumbar and thoracic spine and neurosurgery evaluation if appropriate versus local neurology evaluation. Dr. Lacy was contacted per record review. Given acute presentation and findings on CT imaging we will continue broad-spectrum antibiotic therapy with IV Comycin and IV Zosyn with MRI of the lumbar and thoracic spine with contrast requested. Currently thoracic region with still andrade in place which reportedly are supposed to be removed 14 days and currently incisional region is well-appearing of note. #3. Notable posterior buttock right greater than left in the lumbar back regioneschar secondary to suspected unfortunate injury with heating pad and complicated by paraplegic status with poor mobility: Notable findings on evaluation although no obvious macerated regions or draining wounds, will request plastic surgery evaluation to be cautious, encourage offloading, barrierinterventions as able, maintained as noted on broad-spectrum antibiotic therapy with IV vancomycin and IV Zosyn, wound RN consulted. #4. Questionable Acute Urinary Tract Infection with chronic indwelling catheter, suspect likely chronic colonization: Urinalysis noted to be cloudy with 150 occult blood, negative nitrite however leukocyte Estrace 500 and urine WBCs greater than 100 although no marked urine bacteria, urine culture is pending, maintained on antibiotic therapy given acute presentation with also concurrent right lower lobe infiltrate is noted with pneumonia, urine culture will be pending and certainly if significant growth may alter antibiotic therapyto cover both. #5. Acute NSTEMI, suspect likely demand secondary to acute infectious presentation as noted above: EKG in ED w/ [], CXR w/ right lower lobe infiltrate at the. Trop elevated, 151. Will maintain on a monitored bed, continue serial cardiac enzymes and EKGs. Obtain magnesium level upon admission. Start Heparin drip. Continue medical management. ECHO requested. Pending enzyme rise given suspected demand may consider cardiology involvement. ASA, NG, morphine. #6. Acute rhabdomyolysis: Admission total creatinine kinase 4735, will continue aggressive hydration while continuing to monitor respiratory status, will trend total creatinine kinase as well as renal function and liver function. #7. Acute transaminitis: Admission AST/ALT 244/62 suspected likely related with his acute infectious presentation and rhabdomyolysis, will continue treatments as noted, trend CMP. #8. Acute hypoglycemia with diabetes mellitus type II: Likely secondary to his acute infectious presentation as noted and possibly poor intake related, will hold all diabetic regimen although currently clarifying as no regimen listed, will maintain on aggressive Accu-Chek assessments with hypoglycemic protocol as needed and once appropriate may add back regimen however if decreases further low threshold to add dextrose IV fluids, hemoglobin A1c requested. #9. Acute on chronic hyponatremia: Likely secondary to poor intake and acute presentation as noted, admission sodium 127, baseline prior had been as low as 126 during a prior admission but again this was acute phase and patient was clinically ill during that presentation, prior to this baseline appears 1 33-1 34, will judiciously hydrate as noted and repeat CMP. #10. Chronic microcytic anemia: Admission hemoglobin 9.6, MCV 75.2 baseline appears similar with most recent prior to this 11/17/2022 hemoglobin 8.3, from current list does not appear to be on any iron supplementation, will obtain iron panel, ferritin and guaiac. #11. Left great toe wound: Debrided while inpatient with 11/15/2022 admission, following with Dr. Marley, encourage continued follow-up. #12. Hypertension: Given low normal BP in the setting will temporally hold oral regimen but may add back once clinically appropriate. #13. Chronic bilateral lower extremity lymphedema, PVD: We will place snug charlee wraps with lower extremity elevation. #14. Morbid Obesity: Weight loss and lifestyle changes encouraged. #15. Allergic rhinitis: We will temporarily hold patient home levocetirizine and fluticasone nasal spray. #16. Former tobacco use: Encourage continued tobacco cessation. #17. BATOOL: BiPAP nightly per chart history however if there is any concern about aspiration as noted pending ST evaluation low threshold to hold temporarily. #18. DVT prophylaxis: Heparin drip. #19. CODE status: Patient HCPOA and living will and not in place but he notes that he would prefer his mother and the sister to be his decision-maker if he was unable. Discussed CODE status at length including difference between FULL code, DNR-CCA and DNR-CC status. Following discussions about the differences in these status, requested Full Code status. Discussed his precarious medical position with significant acute issues. Advanced Care Planning Face to Face Time: 16 minutes. Charges/Coding Visit Charges Inpatient E&M: 35850 Init Hosp L3 Procedures Hospitalists Procedures: 07638 Advncd Care Plan 30 Min 02/01/232016 <Electronically signed by Terri Nino MD> Cosigner Signature (if applicable): CC: Dr. Terri Nino MD; Dr. Peter Thayer DO~ Signed [facility] Work Phone: [phone]) 337-396809-19-2023 Consult note Author Julio Zheng [facility] February 01, 2023 8:10pm Note Date/Time February 01, 2023 8:09pm [facility] Medical Records Department [address] [place] [address] Pharmacokinetic/Renal -Consult 02/01/232008 MR#: [id number] Acct: [id number] Name: MELISSA ELIAS Rep #:[id number] : 1965 57 From: Julio Conrad [facility] PCP: Dr. Peter Thayer DO Status:ADM IN Location: [place] [address] Consult Antibiotic Management Pharmacy has been consulted to manage selected antiobiotic: Vancomycin Type of Intervention Type of Consult: New start Suspected Infection Suspected Infection: Pneumonia Labs Labs: Sodium 127 mmol/L (136-145) L 02/01/23 11:45 Potassium 3.6 mmol/L (3.5-5.1) 02/01/23 11:45 Chloride 91 mmol/L (98-107) L 02/01/23 11:45 Carbon Dioxide 30.0 mmol/L (21.0-32.0) 02/01/23 11:45 Anion Gap 6 (5-15) 02/01/23 11:45 BUN 49 mg/dL (7-18) H 02/01/23 11:45 Creatinine 0.75 mg/dL (0.70-1.30) 02/01/23 11:45 Est GFR (MDRD) Af Amer 139 mL/min (>60) 02/01/23 11:45 Est GFR (MDRD) Non-Af 115 mL/min (>60) 02/01/23 11:45 BUN/Creatinine Ratio 65.4 RATIO (10-20) H 02/01/23 11:45 Glucose 77 mg/dL (74-106) 02/01/23 11:45 Microbiology Microbiology: Microbiology 02/01/23 12:16 Mucosa - Nasopharyngeal Respiratory Panel (PCR) - Final Dosing Weight Weight used for dosin kg Estimated Creatinine Clearance Estimated Creatinine Clearance: 153mls/min Pharmacy Plan for Drug Dosing Pharmacy Plan for Drug Dosing: NEW START IV VANCOMYCIN Consulting Physician: Dr. Nino Indication: PNA Goal Trough: 15-20 SrCr: 0.75 CrCl: 153mls/min (using an adjusted body weight of 97.3kg) Comments: pt received a 2000mg dose of Vancomycin in the ER on 02/01/23 at 1349 Vancomycin Dose: based on pts weight and renal function, recommend an initial dose of 1500mg q8h starting 02/01/23 at 2200. Trough prior to the 4th total dose Pending Level: 02/02/23 at 1330 Pharmacy Service will continue to monitor and adjust dosing as required. Follow-Up Labs Follow-Up Labs: Trough: Vancomycin (02/02/23 at 1330) 02/01/232009 <Electronically signed by Julio Garcia [facility]> Date _ Julio Zheng [facility] Cosigner Signature (if applicable): Date CC: ~ Signed [facility] Work Phone: 1(626) 299-437708-21-2023 History of Present illness Narrative* Mark Mendoza MD - 01/03/2023 11:48 AM EDT Melissa Elias is a 57 year old year old male here today for telephone ID follow up ASSESSMENT/PLAN: 1. Bacteremia due to Enterococcus To honor copat end date Remove picc after Amoxicillin po for another 6 weeks Patient to call us after his return to [place] after surgery Will monitor closely SUBJECTIVE: Amp-susceptible Enterococcus BSI, unknown source. -11/18 BCX NGTD -CT ABD/PEL 11/18/2022 no intra-abdominal source. -Repeat MRI T/L 11/23 showed fluid collection in T10 vertebral body that is reflective of neuropathic/postop rather than infection. -11/18 TTE suboptimal imaging, no obvious IE Bilateral lower extremity cellulitis, resolved -Culture + PSA, MSSA, Streptococcus Currently residing at [facility] Tolerating Ceftriaxone + ampicillin thru 01/03/23 Same mobility , no change Pain better No fever/chills/diarrhea/rash Planning to go to [place]emergency [place] for further surgery of the traumatic spinal cord injury PAST MEDICAL HISTORY Diagnosis Date Back pain BMI 50.0-59.9, adult (HCC) HTN (hypertension) Obesity PAST SURGICAL HISTORY Procedure Laterality Date PAST SURGICAL HISTORY OF 08/25/2016 L4-5 TLIF [place] L4-5 DOS 08/25/2016 second surgery 03-09-17 PICC LINE INSERTION (PICC TEAM) ([place]) 12/01/2022 TONSILLECTOMY AND ADENOIDECTOMY HX Social History Tobacco Use Smoking status: Never Smokeless tobacco: Never Substance Use Topics Alcohol use: No Drug use: No No family history on file. There are no active hospital problems to display for this patient. ALLERGIES No Known Allergies Current Outpatient Medications Medication Sig primidone (MYSOLINE) 50 mg tablet Take 1 tablet by mouth every 8 hours. valsartan (DIOVAN) 40 mg tablet Take 1 tablet by mouth once daily. cefTRIAXone (ROCEPHIN) 2 gram/50 mL in dextrose (iso-osmotic) Inject 50 mL intravenously every 12 hours for 20 days. polyethylene glycol 3350 17 gram packet Take 1 Packet by mouth once daily. Dissolve dose in 4 - 8 ounces of liquid and take as directed. senna-docusate (SENNA-S) 8.6-50 mg per tablet Take 2 tablets by mouth twice daily. insulin glargine 100 unit/mL (3 mL) Inject 25 Units subcutaneously daily at bedtime. ampicillin 2 g in NaCl 0.9% 100 mL Vial-Bag Inject 100 mL intravenously every 4 hours for 20 days. zolpidem (AMBIEN) 5 mg tablet Take 1 tablet by mouth at bedtime as needed for up to 30 days. baclofen 10 mg tablet Take 1 tablet by mouth three times daily. guaiFENesin (MUCINEX) 600 mg 12 hr tablet Take 1 tablet by mouth twice daily. albuterol (PROVENTIL) 2.5 mg /3 mL (0.083 %) nebulizer solution Use 3 mL via nebulizer twice daily.Inhale by nebulizer over 5-15 minutes naloxone 4 mg/actuation nasal spray (NARCAN) Use 1 spray in one nostril as needed for overdose. Mayrepeat every 2 to 3 min in alternating nostrils until medical assistance is available silver sulfADIAZINE (SILVADENE) 1 % cream APPLY TO THE AFFECTED AREA(S) TWICE DAILY FOR 10 DAYS triamcinolone acetonide (KENALOG) 0.1 % cream APPLY TO THE AFFECTED AREA(S) THREE TIMES DAILY NEEDED esomeprazole (NEXIUM) 40 mg capsule TAKE 1 CAPSULE BY MOUTH TWICE DAILY FOR 14 DAYS, then return toONCE DAILY OZEMPIC 0.25 mg or 0.5 mg (2 mg/3 mL) pen inject 0.5 mg subcutaneously weekly pramipexole (MIRAPEX) 1 mg tablet Take 1 mg by mouth daily at bedtime. Lactobacillus acidophilus (PROBIOTIC ORAL) Take 1 capsule by mouth once daily. [employer] brand diclofenac (VOLTAREN) 1 % topical gel APPLY 2 GRAMS TO AFFECTED AREA(S) TOPICALLY 4 TIMES DAILY glipiZIDE (GLUCOTROL XL) 10mg 24 hr tablet Take 10 mg by mouth twice daily. No current facility-administered medications for this visit. OBJECTIVE: There were no vitals taken for this visit. PHYSICAL EXAM: Patient does not have the ability to do video call Total time 10 mins Mark Mendoza MD Infectious Disease [facility] January 03, 2023 [facility] Miscellaneous Notes* Telephone Encounter - Myla Barrera RN - 12/31/2022 1:48 PM EDT Patient is at the [address]. Voicemail left for patient to return call. Also spoke with patient's nurse to make sure patient gets the message. Patient scheduled. Myla Barrera RN * Telephone Encounter - Mark Mendoza MD - 12/31/2022 1:17 PM EDT Planning to honor end date. Where is he currently at? I remember he lived far. We can do virtual visit 01/03 @ 11.30a if he is ok with that. I can send him [facility] link Thanks Mark Mendoza MD * Telephone Encounter - Myla Barrera RN - 12/31/2022 11:56 AM EDT Copat stop date 01/03/23. Can stop date be honored and PICC be removed after last dose of ampicillinand ceftriaxone? Myla Barrera RN documented in this encounterMedina [facility]08-16-2023 Miscellaneous Notes* Telephone Encounter - Myla Barrera RN - 12/29/2022 1:33 PM EDT External copat labs entered. Myla Barrera RN documented in this encounterMedina [facility]08-01-2023 [facility]08-01-2023 [facility]-31-2023 [facility]07-31-2023 [facility]07-31-2023 [facility]07-30-2023 [facility]07-30-2023 Note [facility]07-30-2023 [facility] 12-11-2022 [facility]07-29-2023 [facility]07-29-2023 [facility]07-29-2023 NoteHNO ID: [id number] Author: Abram Henderson, KATHRYN Service: Nursing Author Type: Registered Nurse Type: Nursing Progress Note Filed: 12/11/2022 1:11 AM Note Text: Pt noted to have blood tinged urine from bartlett catheter.[facility]07-28-2023 [facility]07-28-2023 [facility]07-27-2023 [facility]07-27-2023 [facility]07-26-2023 [facility]07-26-2023 Note [facility]07-26-2023 [facility] 12-07-2022 [facility]07-25-2023 [facility]07-24-2023 [facility]07-24-2023 [facility]07-23-2023 [facility]07-23-2023 [facility]07-23-2023 [facility]07-22-2023 Note [facility]07-21-2023 [facility] 12-02-2022 [facility]07-20-2023 [facility]07-19-2023 [facility]07-19-2023 [facility]07-18-2023 [facility]07-18-2023 [facility]07-17-2023 [facility]07-17-2023 Note [facility]07-16-2023 [facility] 11-28-2022 [facility]07-15-2023 [facility]07-15-2023 [facility]07-15-2023 [facility]07-14-2023 [facility]07-14-2023 [facility]07-14-2023 [facility]07-13-2023 Note [facility]07-13-2023 NoteHNO ID: [id number] Author: Nannette Henriquez RN Service: Nursing Author Type: Registered Nurse Type: Nursing Progress Note Filed: 11/25/2022 1:26 PM Note Text: ID paged x1 per patient request. 1252: ID paged x2. 1325: ID paged x3.[facility]07-13-2023 [facility]07-12-2023 [facility]07-12-2023 [facility]07-11-2023 [facility] Note [facility]07-09-2023 [facility] 11-20-2022 [facility]07-08-2023 NoteHNO ID: [id number] Author: Interface Note Service: ? Author Type: ? Type: Progress Notes Filed: 11/20/2022 4:03 AM Note Text: Epic Scheduled Downtime: 11/20/2022 1:02:30 AM to 11/20/2022 3:40:00 [facility]07-07-2023 [facility]07-07-2023 [facility]07-07-2023 Note [facility]07-06-2023 [facility] 11-18-2022 [facility]07-06-2023 [facility]07-06-2023 [facility]07-05-2023 History of Present illness Narrative* Peter Restrepo APRN.WATER REUSE PROGRAM MANAGER - 11/17/2022 4:28 PM EDT Images from the original note were not included. CRITICAL CARE TRANSPORT MEDICAL CONTROL CONSULT NOTE Patient Name: Melissa Elias Service Date: November 17, 2022 Referring Facility: [facility] Accepting Facility: [facility] REASON FOR TRANSPORT: Pt with septicemia with weakness and numbness in LE bilaterally. Pt requires specialized neurological evaluation and [facility] REASON FOR CONSULT: Pain control CCT MEDICAL CONTROL CONSULT SUMMARY: History, physical exam findings, and available background patient information from CCT Transport Nurse were reviewed at the time of consult. Pertinent additional information was reviewed as follows: Epic Records and CCT transport request log In brief, Melissa Elias is a 57 year old male with a history, known at time of consult, significant for obesity, enterococcal bacteremia, DIVINA, DM, HTN, BATOOL, fall 12 days ago (c/o back pain and pins and needles sensation bilateral LE), bilateral LE cellulitis, hypotension, leukocytosis, chronic back pain with multiple spinal surgeries, and difficulty ambulating, who presented to [facility] for evaluation of weakness and numbness bilateral LE, difficulty ambulating. PLAN: Multiple factors considered including: patient history/condition/trajectory/stability, referring and receiving destinations, duration of transport time, medications and therapies available during kirby sport, patient safety, as well as crew capabilities. Orders given for: Fentanyl 50 mcg IV Plan of care and orders confirmed and read back via telephone with CCT Transport crew team member, Louise Lira RN SIGNATURE: Peter Restrepo APRN.CNP Acute Care Nurse Practitioner Critical Care Transport documented in this encounterMedina Hospital07-05-2023 Progress note Author Florencio Greenfield [facility] November 17, 2022 12:45pm Note Date/Time November 17, 2022 9:44a m [facility] Medical Records Department [address] [place] [address] Progress Note - Box Feeder 11/17/22 0937 MR#: [id number] Acct: [id number] Name: MELISSA ELIAS Rep #:[id number] : 1965 57 From: Florencio Greenfield MD PCP: Dr. Peter Thayer, DO Status:ADM IN Location: ICU ICU05-1 Assessment & Plan Assessment/Plan (1) Sepsis due to Enterobacter: PLAN: Patient was seen today by Dr. Florentino Hanna of ID, and Dr. Julien Marley of podiatry, and consults appreciated. He recommended changing Zosyn to Unasyn 2 g IV every 6 hours. Patient has improved clinically white count has normalized fever is resolved. It remains to be determined regarding the length of therapy, which will depend on whether his hardware is infected. He will havean MRI later today to help determine that. He will also need an MRI of his hip prosthesis. - unasyn - wound care; appreciate their input - await additional cultures, final urine and wounds - wound cuture L great toe - urine suggests infection also, with increased WBC and leuk esterase (2) Injury to L1 level of spinal cord: PLAN: Happened shortly after his fall, is of concern for transection versus contusion when he fell 10 days prior to admission, and noted that he could not walk about 4 days later. Likely has swelling about the area of trauma, I have started high- dose Decadron. - Teleneurology consult appreciated. - Decadron - Stat MRI of lumbar and thoracic spine - Minimize movement, will hold on PT for now. - Discussed with Dr. Matias, will transfer patient to the site of his previous neurosurgery consultation for higher level of care. We do not have neurosurgeryavailable here. (3) Cellulitis of leg without foot, right: PLAN: Unasyn, Zosyn discontinued per ID, will re-add treatment for Pseudomonas if wound cultures show it. That seems likely due to the odor and greenish drainage from his posterior calves. - Local care, wraps, as recommended by podiatry - Eventual application of pumps once edema decreases and lesions improve - No lesions need debridement at this time. Local care for the stage II anterior left cadena ulcer of approximately 3 cm is recommended currently. (4) Cellulitis of leg without foot, left: PLAN: Same as above. (5) Acute renal failure: QUALIFIERS: Acute renal failure type: unspecified Qualified Code(s): N17.9 - Acute kidney failure, unspecified PLAN: Slightly improved. Patient has extensive third spaced fluid, BUN and creatinine are both improving. - Maintain good perfusion and oxygenation. - Follow electrolytes - No indication for dialysis at this time. (6) BATOOL treated with BiPAP: PLAN: Tolerating 16/10, rate 14, FiO2 35% well at night and with naps. - He will use supplemental oxygen which is currently room air to 2 L during theday. - Incentive spirometry to avoid atelectasis. (7) Lymphedema: PLAN: As above (8) Type 2 diabetes mellitus: QUALIFIERS: Diabetes mellitus intermediate card tender insulin use: without intermediate card tender use Diabetes mellitus complication status: with neurologic complications Diabetes mellitus complication detail: with polyneuropathy Qualified Code(s): E11.42 - Type 2 diabetes mellitus with diabetic polyneuropathy PLAN: As above. Managed by hospitalist team. PLAN: Plan Critical care time spent with patient at bedside, review of documentation, lab results, radiology and other test results, discussion during interdisciplinary rounds with colleagues and ancillary staff, clinical management of patient, and updating f sister at bedside, was 90 minutes. [place] [address], [address]. Subjective Subjective Patient feels better today with respect to breathing and overall achiness. I noted today he was not moving his feet, wiggling toes or lifting legs. He is following commands well and completely alert & oriented, able to follow all commands with UEs, but not LEs. He has an L2 level bilateral hemiparesis, and unable to feel lateral thighs just below groin, able to feel medial thighs, not medial calves. Further questioning revealed he was able to walk a few steps, transfer to recliner, wheelchair until 2 days after he fell, about 8 days ago. He did not tell anyone about this symptom until I asked him about it today. He also complains of bilateral ulnar tingling; has been in bed with cushioning and raising of arms. Not OOB to chair yet due to BP, will start today if safe todo so per neurology. He may need to be transferred due to availability of higher level of care (neuro/n'surgery). High-dose Decadron was added stat for possible spinal cord swelling. Stat teleneurology services were ordered. Stat neurosurgery consult and stat MRI of the lumbar and thoracic spine was recommended. MRI was scheduled for earliest available today. Objective Data Objective Data Vital Signs: Vital Signs Temp Pulse Resp BP Pulse Ox O2 Del Method O2 Flow Rate 98.1 F 88 14 94/50 L 88 Room Air 2 11/17/22 07:00 11/17/22 07:00 11/17/22 07:00 11/17/22 07:00 11/17/22 09:05 11/17/22 09:05 11/16/22 22:00 FiO2 35 11/17/22 04:08 Oxygen Flow Rate (L/min) 2 Oxygen Delivery Method Room Air Weight: 366 lb 3.005 oz Body Mass Index (BMI) 57.4 Tolerated BiPAP 16/10 rate 14, FiO2 35% with sleep and naps; on RA and occasional 2L otherwise. Intake & Output: Intake and Output for Last 24 Hours 11/15/22 11/16/22 11/17/22 23:59 23:59 23:59 Intake Total 1140 / 1240 4841.67 / 4841.67 1050 / 1050 Output Total 1800 / 1800 6825 / 6825 1400 / 1400 Balance -660 / -560 -1982.33 / -1982.33 -350 / -350 Lab / Micro Data Attestation: I reviewed the patient's lab results. 11/17/22 04:55 11/17/22 04:55 Labs: Laboratory Results - last 24 hr 11/16/22 11:13: POC Glucose 104 11/16/22 12:40: Sodium 133 L, Potassium 5.4 H, Chloride 101, Carbon Dioxide 27.0, Anion Gap 5, BUN 109 H*, Creatinine 3.14 H, Estim Creat Clear Calc 24.85, Est GFR (MDRD) Af Amer 27 L, Est GFR (MDRD) Non-Af 22 L, BUN/Creatinine Ratio 34.7 H, Glucose 95, Calcium 8.7 11/16/22 16:12: POC Glucose 76 11/16/22 22:30: POC Glucose 91 11/17/22 04:55: WBC 8.5, RBC 3.12 L, Hgb 8.3 L, Hct 27.3 L, MCV 87.5, MCH 26.6 L, MCHC 30.4 L, RDW Std Deviation 47.3 H, RDW Coeff of Mary 14.8 H, Plt Count 283,MPV 9.6, Immature Gran % (Auto) 0.500, Neut % (Auto) 70.5 H, Lymph % (Auto) 15.7L, Hayes % (Auto) 11.9 H, Eos % (Auto) 1.2, Baso % (Auto) 0.2, Absolute Neuts (auto) 6.0, Absolute Lymphs (auto) 1.34, Nucleated RBC % 0, Sodium 137, Potassium 4.9, Chloride 104, Carbon Dioxide 27.0, Anion Gap 6, BUN 100 H, Creatinine 2.14 H, Estim Creat Clear Calc 36.46, Est GFR (MDRD) Af Amer 41 L, EstGFR (MDRD) Non-Af 34 L, BUN/Creatinine Ratio 46.7 H, Glucose 107 H, Calcium 7.8 L, Phosphorus 5.2 H, Magnesium 3.3 H, Total Bilirubin 0.40, AST 53 H, ALT 28, Alkaline Phosphatase 59, Total Protein 5.6 L, Albumin 2.0 L, Globulin 3.6, Albumin/Globulin Ratio 0.6 L, Urine Color Yellow, Urine Clarity Sl. Cloudy, Urine pH 6.0, Ur Specific [place] 1.015, Urine Protein 30 H, Urine Glucose (UA) Normal, Urine Ketones Negative, Urine Occult Blood 250 H, Urine Nitrite Negative, Urine Bilirubin Negative, Urine Urobilinogen Normal, Ur Leukocyte Esterase 500 H, Urine RBC 5-10 SEEN, Urine WBC 25-50 SEEN, Ur Squamous Epith Cells 0 SEEN, Urine Bacteria 2+, Urine Mucus 0 SEEN 11/17/22 07:25: POC Glucose 103 Micro: Microbiology 11/16/22 12:30 Wound - Left Foot Gram Stain - Final 11/15/22 19:27 Blood Culture (Wb) - Left Hand Blood Culture - Final GPC Poss Enterococcus sp 11/15/22 18:35 Blood Culture (Wb) - Left Hand Bacteria Detection (PCR) - Final Enterococcus faecalis 11/15/22 18:35 Blood Culture (Wb) - Left Hand Blood Culture - Preliminary Enterococcus faecalis 11/17/22 04:55 Urine Catheter - Bartlett Legionella Antigen - Final Current antibiotics include vancomycin, (discontinued), Unasyn 2 g IV every 6 (Zosyn discontinued). Radiography Diagnostic Testing: Radiology Impression Foot X-Ray 11/16/22 10:09 IMPRESSION: No radiographic evidence of osteomyelitis. Electronically Signed: Rojelio Juarez MD at 13:43 EDT , MRI thoracic and lumbar spine ordered for today. Stat Physical Exam Narrative Well-developed, pleasant articulate morbidly obese gentleman with BMI 57, no respiratory distress. HEENT is unremarkable, no skin abrasion at BiPAP site. His membranes moist. Chest: Unlabored breathing. Clear. Heart normal S1-S2 with no murmurs rubs or gallops Abdomen is obese Extremities have diffuse erythema of the lower extremities some creasing of the skin consistent with diuresis over the past 24 hours. Skin lesions unchanged including left great toe, dry crusted eschar on the anterior left lower cadena, posteriorly open and draining small multiple lesions stage I-II, greenish purulence. Neuro: Cranial nerves intact Decreased ability to handgrip bilaterally, new; full range of motion arm and neck. Sensory absence in the lateral thighs approximately 4 inches below the inguinal crease. Moderate sensory decrease in the medial thighs below the groin. Absentsensation below the knees bilaterally. Motor: Patient is unable to fern picker his legs bent his knees raise his feet or wiggle his toes. I did notice mild inward rotation of the left leg on command. No motion of the right leg. Able to bend at the waist. He is diffusely weak atbaseline due to morbid obesity and being largely chair bound. Neuro exam seems consistent with a L1 and below cord level deficit, equal bilaterally. Patient cooperated fully with exam. He stated he was trying to move his extremities but just could not. There also may be a developing bilateral ulnar neuropathy, secondary to lying supine in a morbidly obese patient despite frequent moving and padding. Notably this was a reason that recent surgery was canceled. Const alert and oriented x3 General Appearance: cooperative Charges/Coding Procedures Hospitalists Procedures: 07815 Critial Care 1st Hr 11/17/22 1245 <Electronically signed by Florencio Greenfield MD> Cosigner Signature (if applicable): CC: ~ Signed [facility] Work Phone: 1(880) 193-450707-05-2023 Consult note Author Florentino Hanna [facility] November 17, 2022 10:36am Note Date/Time November 17, 2022 10:36 am [facility] Medical Records Department [address] [place] [address] Consultation - Infectious Dx 11/17/22 1031 MR#: [id number] Acct: [id number] Name: MELISSA ELIAS Rep #:[id number] : 1965 57 From: Florentino Hanna MD PCP: Dr. Peter Thayer, DO Status:ADM IN Location: ICU ICU05-1 Assessment & Plan Assessment/Plan (1) Sepsis: PLAN: Enterococcal bacteremia in a patient presents with sepsis and acute renal injury. Patient's renal function has improved over the last 24 to 48 hours. Ofconcern is his acute neurological condition of his lower extremity motor strength. Regards to the enterococcal bacteremia we will treat ampicillin 2 g IV every 6 hours, repeat blood cultures were sent. Very low threshold to have neurology as well as a spine surgeon to evaluate the patient emergently given his acute neurological condition. HPI Consult Data Date of Consult: 11/17/22 HPI Narrative Reason for Consultation: Sepsis/bacteremia HPI Narrative: MELISSA ELIAS, is a 57 M who presents difficulty ambulating over 4-day period and unable to move his lower extremities. Patient was admitted to the ICU with severe sepsis. Admission blood cultures are now growing Enterococcus faecalis. Interestingly roughly 12 days ago patient fell on his back and injured his lowerback at that trauma. Apparently has some pins and needle sensation of his lowerextremities shortly after the fall and over the last 4 days has not able to ambulate or move his legs. He currently has a Bartlett catheter in place. Patientwas admitted found to be in acute renal failure. No cardiopulmonary distress. Patient does have a history of spine disease and previous spine surgeries last surgery was in 2020. He also has underlying diabetes mellitus and morbid obesity. Patient was admitted and placed on vancomycin plus Zosyn. No gastrointestinal distress. [facility] Medical History BMI greater than 40 Cellulitis COVID-19 H/o back surgery Hemiparesis HTN (hypertension) BATOOL treated with BiPAP Septic shock due to Gram positive bacteria Type 2 diabetes mellitus Home Medications B-complex with vitamin C 1 tab PO DAILY 03/03/20 [History Last Taken Unknown] ascorbate calcium (vitamin C) 500 mg tablet 500 mg PO DAILY 03/03/20 [History Last Taken Unknown] calcium carbonate 500 mg calcium (1,250 mg) tablet (Calcium 500) 500 mg PO DAILY03/03/20 [History Last Taken Unknown] cholecalciferol (vitamin D3) 50 mcg (2,000 unit) capsule 50 mcg PO DAILY 03/03/20 [History Last Taken Unknown] diclofenac sodium 50 mg tablet,delayed release 50 mg PO BID 03/03/20 [History Last Taken Unknown] fluticasone propionate 50 mcg/actuation nasal spray,suspension (Flonase Allergy Relief) 1 spray intranasal DAILY 03/03/20 [History Last Taken Unknown] levocetirizine 5 mg tablet (24HR Allergy Relief) 5 mg PO DAILY 03/03/20 [History Last Taken Unknown] olmesartan 40 mg-hydrochlorothiazide 25 mg tablet 1 ea PO DAILY 03/03/20 [History Last Taken Unknown] oxycodone-acetaminophen 7.5 mg-325 mg tablet 1 ea PO Q4H PRN Pain 03/03/20 [History Last Taken Unknown] propranolol 10 mg tablet 10 mg PO DAILY 03/03/20 [History Last Taken Unknown] tizanidine 4 mg tablet 1 ea PO TID PRN Spasms 03/03/20 [History Last Taken Unknown] zinc 50 mg tablet 50 mg PO DAILY 03/03/20 [History Last Taken Unknown] Allergy/AdvReac Type Severity Reaction Status Date / Time No Known Allergies Allergy Verified 11/15/22 18:01 Family History Mother Hypertension Hypotension Diabetes Arthritis Father Hypertension Hypotension Heart disease Status post double vessel coronary artery bypass angina Arthritis Grandfather Prostate cancer Grandmother Uterine cancer Surgical History H/O sinus surgery Social History household members: other details: parents current occupational status: employed and retired Smoking Status: Former smoker alcohol intake: never substance use type: does not use do you feel safe at home: Yes ROS ROS Narrative As stated in the history of present illness Physical Exam Narrative Alert responsive oriented to person place and time. Lungs are clear heart exam S1-S2 very distant heart sounds. Abdomen is obese but soft. Bartlett catheter is in place. Patient unable to move his lower extremities. No motor strength. Lab / Micro Data 11/17/22 04:55 11/17/22 04:55 Labs: Laboratory Results - last 24 hr 11/16/22 11:13: POC Glucose 104 11/16/22 12:40: Sodium 133 L, Potassium 5.4 H, Chloride 101, Carbon Dioxide 27.0, Anion Gap 5, BUN 109 H*, Creatinine 3.14 H, Estim Creat Clear Calc 24.85, Est GFR (MDRD) Af Amer 27 L, Est GFR (MDRD) Non-Af 22 L, BUN/Creatinine Ratio 34.7 H, Glucose 95, Calcium 8.7 11/16/22 16:12: POC Glucose 76 11/16/22 22:30: POC Glucose 91 11/17/22 04:55: WBC 8.5, RBC 3.12 L, Hgb 8.3 L, Hct 27.3 L, MCV 87.5, MCH 26.6 L, MCHC 30.4 L, RDW Std Deviation 47.3 H, RDW Coeff of Mary 14.8 H, Plt Count 283,MPV 9.6, Immature Gran % (Auto) 0.500, Neut % (Auto) 70.5 H, Lymph % (Auto) 15.7L, Hayes % (Auto) 11.9 H, Eos % (Auto) 1.2, Baso % (Auto) 0.2, Absolute Neuts (auto) 6.0, Absolute Lymphs (auto) 1.34, Nucleated RBC % 0, Sodium 137, Potassium 4.9, Chloride 104, Carbon Dioxide 27.0, Anion Gap 6, BUN 100 H, Creatinine 2.14 H, Estim Creat Clear Calc 36.46, Est GFR (MDRD) Af Amer 41 L, Est GFR (MDRD) Non-Af 34 L, BUN/Creatinine Ratio 46.7 H, Glucose 107 H, Calcium 7.8 L, Phosphorus 5.2 H, Magnesium 3.3 H, Total Bilirubin 0.40, AST 53 H, ALT 28, Alkaline Phosphatase 59, Total Protein 5.6 L, Albumin 2.0 L, Globulin 3.6, Albumin/Globulin Ratio 0.6 L, Urine Color Yellow, Urine Clarity Sl. Cloudy, Urine pH 6.0, Ur Specific [place] 1.015, Urine Protein 30 H, Urine Glucose (UA) Normal, Urine Ketones Negative, Urine Occult Blood 250 H, Urine Nitrite Negative, Urine Bilirubin Negative, Urine Urobilinogen Normal, Ur Leukocyte Esterase 500 H, Urine RBC 5-10 SEEN, Urine WBC 25-50 SEEN, Ur Squamous Epith Cells 0 SEEN, Urine Bacteria 2+, Urine Mucus 0 SEEN 11/17/22 07:25: POC Glucose 103 Micro: Microbiology 11/16/22 12:30 Wound - Left Foot Gram Stain - Final 11/16/22 12:30 Wound - Left Foot Wound Culture - Preliminary GNR Poss Pseudomonas sp Staphylococcus aureus Beta streptococcus 11/15/22 19:27 Blood Culture (Wb) - Left Hand Blood Culture - Final GPC Poss Enterococcus sp 11/15/22 18:35 Blood Culture (Wb) - Left Hand Bacteria Detection (PCR) - Final Enterococcus faecalis 11/15/22 18:35 Blood Culture (Wb) - Left Hand Blood Culture - Preliminary Enterococcus faecalis 11/17/22 04:55 Urine Catheter - Bartlett Legionella Antigen - Final Radiology Impression Foot X-Ray 11/16/22 10:09 IMPRESSION: No radiographic evidence of osteomyelitis. Electronically Signed: Rojelio Juarez MD at 13:43 EDT , 11/17/22 1036 <Electronically signed by Florentino Hanna MD> Cosigner Signature (if applicable): CC: DPM Dr. Alexei Marley; Dr. Michele Montes MD; Dr. Florencio Greenfield MD; Dr. Peter Thayer DO; Dr. Carlos Lacy MD; Dr. Minda Cm MD~ Signed [facility] Work Phone: [phone] 441-313407-05-2023 Consult note Author Alexei Marley [facility] November 17, 2022 10:08am Note Date/Time November 17, 2022 10:08 am [facility] Medical Records Department [address] [place] [id number] Consultation 11/17/22 1001 MR#: [id number] Acct: [id number] Name: MELISSA ELIAS Rep #:[id number] : 1965 57 From: Alexei Marley DPM PCP: Dr. Peter Thayer DO Status:ADM IN Location: ICU [place] [address] Assessment & Plan Assessment/Plan (1) Cellulitis of leg without foot, left: PLAN: Exam performed Patient has bilateral cellulitis secondary to chronic lymphedema with multiple skin breaks as a source for infection Duplex ultrasounds were ordered to rule out any DVT as patient has not been ambulatory for 10 days and has a sudden increase in swelling We will plan for frequent dressing changes to help manage the edema as well as stabilize the wounds and continue IV antibiotics for cellulitis management per infectious disease Patient seems to have paraplegia, per assistant principal has L2 injury, neurology consulted We will likely plan to refer patient to lymphedema clinic upon discharge to get evaluated for lymphedema pumps prevent any future ulcerations We will continue to follow patient closely while he is in house (2) Cellulitis of leg without foot, right: (3) Lymphedema: (4) Paraplegia: HPI Consult Data Date of Consult: 11/17/22 HPI Narrative HPI Narrative: MELISSA ELIAS, is a 57 M who presents bilateral lower extremity cellulitis andsepsis. Patient has history of lymphedema. Patient fell 10 days prior. Patient's been unable to ambulate since that time. Notes increased pain swelling redness to bilateral lower extremity patient denies any constitutional symptoms at current. Patient denies any pain. Patient unable to actively move digits ankle or knee at this time. Patient notes that he is chronic issues with swelling which usually uses a topical corticosteroid cream to help with the redness as well as his mom wraps his legs to help with the edema and he elevates them when he is at rest. Patient denies ever having been to a lymphedema clinic before [facility] Medical History BMI greater than 40 Cellulitis COVID-19 H/o back surgery Hemiparesis HTN (hypertension) BATOOL treated with BiPAP Septic shock due to Gram positive bacteria Type 2 diabetes mellitus Home Medications B-complex with vitamin C 1 tab PO DAILY 03/03/20 [History Last Taken Unknown] ascorbate calcium (vitamin C) 500 mg tablet 500 mg PO DAILY 03/03/20 [History Last Taken Unknown] calcium carbonate 500 mg calcium (1,250 mg) tablet (Calcium 500) 500 mg PO DAILY03/03/20 [History Last Taken Unknown] cholecalciferol (vitamin D3) 50 mcg (2,000 unit) capsule 50 mcg PO DAILY 03/03/20 [History Last Taken Unknown] diclofenac sodium 50 mg tablet,delayed release 50 mg PO BID 03/03/20 [History Last Taken Unknown] fluticasone propionate 50 mcg/actuation nasal spray,suspension (Flonase Allergy Relief) 1 spray intranasal DAILY 03/03/20 [History Last Taken Unknown] levocetirizine 5 mg tablet (24HR Allergy Relief) 5 mg PO DAILY 03/03/20 [History Last Taken Unknown] olmesartan 40 mg-hydrochlorothiazide 25 mg tablet 1 ea PO DAILY 03/03/20 [History Last Taken Unknown] oxycodone-acetaminophen 7.5 mg-325 mg tablet 1 ea PO Q4H PRN Pain 03/03/20 [History Last Taken Unknown] propranolol 10 mg tablet 10 mg PO DAILY 03/03/20 [History Last Taken Unknown] tizanidine 4 mg tablet 1 ea PO TID PRN Spasms 03/03/20 [History Last Taken Unknown] zinc 50 mg tablet 50 mg PO DAILY 03/03/20 [History Last Taken Unknown] Allergy/AdvReac Type Severity Reaction Status Date / Time No Known Allergies Allergy Verified 11/15/22 18:01 Family History Mother Hypertension Hypotension Diabetes Arthritis Father Hypertension Hypotension Heart disease Status post double vessel coronary artery bypass angina Arthritis Grandfather Prostate cancer Grandmother Uterine cancer Surgical History H/O sinus surgery Social History household members: other details: parents current occupational status: employed and retired Smoking Status: Former smoker alcohol intake: never substance use type: does not use do you feel safe at home: Yes Physical Exam Narrative Vascular dorsalis pedis posterior tibial pulses palpable 2 out of 4 to bilaterallower extremity. +2 pitting edema to bilateral lower extremity. Focal increasein warmth erythema to bilateral mid tibial legs Multiple patches partial-thickness ulcerations noted to the anterior legs bilaterally with periwound erythema edema and warmth. No underlying fluctuance crepitus or deep probing at this time. Wounds demonstrate fibrous base Focal bolus noted to left hallux stable granular base. No acute signs of infection. Patient unable to actively move digits or lower extremity muscle compartments atall 0/5 strength No gross deformity noted. Const alert and oriented x3 Lab / Micro Data 11/17/22 04:55 11/17/22 04:55 Labs: Laboratory Results - last 24 hr 11/16/22 11:13: POC Glucose 104 11/16/22 12:40: Sodium 133 L, Potassium 5.4 H, Chloride 101, Carbon Dioxide 27.0, Anion Gap 5, BUN 109 H*, Creatinine 3.14 H, Estim Creat Clear Calc 24.85, Est GFR (MDRD) Af Amer 27 L, Est GFR (MDRD) Non-Af 22 L, BUN/Creatinine Ratio 34.7 H, Glucose 95, Calcium 8.7 11/16/22 16:12: POC Glucose 76 11/16/22 22:30: POC Glucose 91 11/17/22 04:55: WBC 8.5, RBC 3.12 L, Hgb 8.3 L, Hct 27.3 L, MCV 87.5, MCH 26.6 L, MCHC 30.4 L, RDW Std Deviation 47.3 H, RDW Coeff of Mary 14.8 H, Plt Count 283,MPV 9.6, Immature Gran % (Auto) 0.500, Neut % (Auto) 70.5 H, Lymph % (Auto) 15.7L, Hayes % (Auto) 11.9 H, Eos % (Auto) 1.2, Baso % (Auto) 0.2, Absolute Neuts (auto) 6.0, Absolute Lymphs (auto) 1.34, Nucleated RBC % 0, Sodium 137, Potassium 4.9, Chloride 104, Carbon Dioxide 27.0, Anion Gap 6, BUN 100 H, Creatinine 2.14 H, Estim Creat Clear Calc 36.46, Est GFR (MDRD) Af Amer 41 L, Est GFR (MDRD) Non-Af 34 L, BUN/Creatinine Ratio 46.7 H, Glucose 107 H, Calcium 7.8 L, Phosphorus 5.2 H, Magnesium 3.3 H, Total Bilirubin 0.40, AST 53 H, ALT 28, Alkaline Phosphatase 59, Total Protein 5.6 L, Albumin 2.0 L, Globulin 3.6, Albumin/Globulin Ratio 0.6 L, Urine Color Yellow, Urine Clarity Sl. Cloudy, Urine pH 6.0, Ur Specific [place] 1.015, Urine Protein 30 H, Urine Glucose (UA) Normal, Urine Ketones Negative, Urine Occult Blood 250 H, Urine Nitrite Negative, Urine Bilirubin Negative, Urine Urobilinogen Normal, Ur Leukocyte Esterase 500 H, Urine RBC 5-10 SEEN, Urine WBC 25-50 SEEN, Ur Squamous Epith Cells 0 SEEN, Urine Bacteria 2+, Urine Mucus 0 SEEN 11/17/22 07:25: POC Glucose 103 Micro: Microbiology 11/16/22 12:30 Wound - Left Foot Gram Stain - Final 11/15/22 19:27 Blood Culture (Wb) - Left Hand Blood Culture - Final GPC Poss Enterococcus sp 11/15/22 18:35 Blood Culture (Wb) - Left Hand Bacteria Detection (PCR) - Final Enterococcus faecalis 11/15/22 18:35 Blood Culture (Wb) - Left Hand Blood Culture - Preliminary Enterococcus faecalis 11/17/22 04:55 Urine Catheter - Bartlett Legionella Antigen - Final Radiology Impression Foot X-Ray 11/16/22 10:09 IMPRESSION: No radiographic evidence of osteomyelitis. Electronically Signed: Rojelio Juarez MD at 13:43 EDT Reading Location ID and State: [facility] / [place] Tel , Service support , 11/17/22 1008 <Electronically signed by Alexei Marley DPM> Cosigner Signature (if applicable): CC: DPM Dr. Alexei Marley; Dr. Michele Montes MD; Dr. Florencio Greenfield MD; Dr. Peter Thayer DO; Dr. Carlos Lacy MD; Dr. Minda Cm MD~ Signed [facility] Work Phone: [phone]) 118-388807-04-2023 Consult note Author Vanessa [facility] November 16, 2022 4:02pm Note Date/Time November 16, 2022 8:36a [facility] Medical Records Department [address] [place] [address] Pharmacokinetic/Renal -Consult 11/16/22 0835 MR#: [id number] Acct: [id number] Name: MELISSA ELIAS Rep #:[id number] : 1965 57 From: Darcy Gaitan PCP: Dr. Peter Thayer DO Status:ADM IN Y Location: ICU ICU-1 Consult Antibiotic Management Pharmacy has been consulted to manage selected antiobiotic: Vancomycin Type of Intervention Type of Consult: New start Suspected Infection Suspected Infection: Skin/Soft tissue Labs Labs: Sodium 130 mmol/L (136-145) L 11/16/22 03:14 Potassium 6.7 mmol/L (3.5-5.1) H* 11/16/22 03:14 Chloride 98 mmol/L (98-107) 11/16/22 03:14 Carbon Dioxide 26.0 mmol/L (21.0-32.0) 11/16/22 03:14 Anion Gap 6 (5-15) 11/16/22 03:14 BUN 111 mg/dL (7-18) H* 11/16/22 03:14 Creatinine 4.17 mg/dL (0.70-1.30) H 11/16/22 03:14 Est GFR (MDRD) Af Amer 19 mL/min (>60) L 11/16/22 03:14 Est GFR (MDRD) Non-Af 16 mL/min (>60) L 11/16/22 03:14 BUN/Creatinine Ratio 26.6 RATIO (10-20) H 11/16/22 03:14 Glucose 127 mg/dL (74-106) H 11/16/22 03:14 Microbiology Microbiology: Microbiology 11/15/22 19:27 Blood Culture (Wb) - Left Hand Blood Culture - Preliminary 11/15/22 18:35 Blood Culture (Wb) - Left Hand Blood Culture - Preliminary Pharmacy Plan for Drug Dosing Pharmacy Plan for Drug Dosing: NEW START IV VANCOMYCIN Consulting Physician: FLORENCIO Indication: CELLULITIS/SEPSIS Goal Trough: 15-20 MG/DL SrCr: 4.17 MG/DL CrCl: 30 ML/MIN USING ADJ BW Comments: GIVEN 2000MG LOADING DOSE IN ER 11/15 @ 1931 Vancomycin Dose: WILL START 1500MG Q24 TONIGHT @ 1930 AND GET A TROUGH PRIOR TO 3RD DOSE PER POLICY. Pending Level: 11/17/22 @ 1900 Pharmacy Service will continue to monitor and adjust dosing as required. 11/16/22 0836 <Electronically signed by Darcy Gaitan> Date _ Darcy Gaitan 11/16/22 1602 <Electronically signed by Vanessa Contreras O> Cosigner Signature (if applicable): Date Vanessa Matias DO CC: ~ Signed [facility] Work Phone: [phone]) 128-242007-04-2023 Progress note Author Vanessa Matias [facility] November 16, 2022 12:49pm Note Date/Time November 16, 2022 7:55a m [facility] Medical Records Department [address] [place] [address] Progress Note - Hospitalist 11/16/22 0749 MR#: [id number] Acct: [id number] Name: MELISSA ELIAS Rep #:[id number] : 1965 57 From: Vanessa Matias DO PCP: Dr. Peter Thayer, DO Status:ADM IN Location: ICU ICU05-1 Reason for Visit Reason for Visit: Bilateral lower extremity redness Subjective Subjective Mr. Elias is a 57-year-old white male who presents emergency department [facility] on 11/15/2022 with worsening bilateral lower extremity redness and edema. He has chronic erythema and swelling in his both of his legsbut he felt that the swelling and erythema was worsening. He fell 10 days ago after which she developed worsening swelling in his legs and leakage from bilateral legs. At home his mother had been helping him dress his legs. He denied any fever but did complain of chills and anorexia along with fatigue and generalized weakness. He had been on outpatient course of antibiotics and felt that he was improving for a brief period of time but then progressively got worse again. Vital signs on presentation showed a temperature of 97.7, heart rate 80, blood pressure initially was 95/46, respiratory rate was 16-26 and oxygen saturations were 94% on room air. CBC demonstrated a white count of 21,000 with a left shift. His chemistry was markedly abnormal with hyponatremia, hyperkalemia with potassium of 6.6, normal serum bicarb and anion gap however I do suspect his serum bicarb is low for him based on his body habitus and high suspicion for chronic CO2 retention. BUN was 112 and serum creatinine was 5.08. His baseline serum creatinine is between 0.9 and 1.2. Hisinitial lactate was 2.4. His cardiac enzymes were cycled and found to be negative. His BNP was 3.9. MRSA PCR was negative. He was admitted to the ICU and started on broad-spectrum antibiotics after cultures were obtained. Cultureresults are currently pending and his white count is trending down. Patient states he is overall feeling better this morning. Renal function is improving. No specific issues overnight. Urine output is good. Objective Data Objective Data Vital Signs: Vital Signs Temp Pulse Resp BP Pulse Ox O2 Del Method O2 Flow Rate 97.0 F L 86 16 99/47 L 100 Bi-pap 3 11/16/22 07:00 11/16/22 07:07 11/16/22 07:07 11/16/22 07:00 11/16/22 07:07 11/16/22 07:07 11/16/22 05:00 FiO2 35 11/16/22 07:07 Oxygen Flow Rate (L/min) 3 Oxygen Delivery Method Bi-pap Weight: 166.1 kg Body Mass Index (BMI) 57.4 Intake & Output: Intake and Output for Last 24 Hours 11/14/22 11/15/22 11/16/22 23:59 23:59 23:59 Intake Total 1140 / 1240 370 / 370 Output Total 1800 / 1800 2200 / 2200 Balance -660 / -560 -1830 / -1830 Lab / Micro Data 11/16/22 03:14 11/16/22 03:14 Labs: Laboratory Results - last 24 hr 11/15/22 18:35: WBC 21.0 H, RBC 3.81 L, Hgb 10.1 L, Hct 33.3 L, MCV 87.4, MCH 26.5 L, MCHC 30.3 L, RDW Std Deviation 47.4 H, RDW Coeff of Mary 14.7 H, Plt Count 387, MPV 9.9, Sodium 126 L, Potassium 6.6 H*, Chloride 93 L, Carbon Dioxide 23.0, Anion Gap 10, BUN 112 H*, Creatinine 5.08 H, Estim Creat Clear Calc 15.36, Est GFR (MDRD) Af Amer 15 L, Est GFR (MDRD) Non-Af 13 L, BUN/CreatinineRatio 22.0 H, Glucose 240 H, Lactic Acid 2.4 H*, Calcium 9.8, Troponin I High Sens 7, B-Natriuretic Peptide 3.9 11/15/22 20:04: POC Glucose 215 H 11/15/22 22:27: POC Glucose 155 H 11/15/22 22:30: Troponin I High Sens 6, MRSA (PCR) Negative 11/15/22 23:30: Lactic Acid 2.0 11/16/22 03:14: WBC 17.1 H, RBC 3.51 L, Hgb 9.4 L, Hct 30.0 L, MCV 85.5, MCH 26.8 L, MCHC 31.3 L, RDW Std Deviation 45.5 H, RDW Coeff of Mary 14.6, Plt Count 331, MPV 9.7, Immature Gran % (Auto) 0.500, Neut % (Auto) 88.7 H, Lymph % (Auto)4.7 L, Hayes % (Auto) 5.9, Eos % (Auto) 0.1, Baso % (Auto) 0.1, Absolute Neuts (auto) 15.2 H, Absolute Lymphs (auto) 0.80 L, Nucleated RBC % 0, Sodium 130 L, Potassium 6.7 H*, Chloride 98, Carbon Dioxide 26.0, Anion Gap 6, BUN 111 H*, Creatinine 4.17 H, Estim Creat Clear Calc 18.71, Est GFR (MDRD) Af Amer 19 L, Est GFR (MDRD) Non-Af 16 L, BUN/Creatinine Ratio 26.6 H, Glucose 127 H, Calcium 9.0, Total Bilirubin 0.40, AST 39 H, ALT 32, Alkaline Phosphatase 65, Total Protein 6.0 L, Albumin 2.3 L, Globulin 3.7, Albumin/Globulin Ratio 0.6 L ABG Data ABG results: ABG 11/15/22 19:09 Specimen Type MARY ELLEN VBG pH 7.37 VBG pO2 113 H VBG HCO3 24 VBG Total CO2 25 VBG O2 Sat (Calc) 98 H VBG Base Excess -2 L POC Mix VBG pCO2 Pt Tmp 41.0 O2 Delivery Device Cannula Liter Flow 3.0 Radiography Diagnostic Testing: Radiology Impression Chest X-Ray 11/15/22 19:00 IMPRESSION: Lower lobe atelectasis. Electronically Signed: Art Jackson MD at 19:16 EDT , Physical Exam Const alert, oriented x3, no apparent distress and well nourished; Negative for average body habitus Constitutional Narrative: Super morbidly obese white male, sitting up in bed, nursing at bedside, patient appears comfortable and nontoxic, currently on room air HEENT head/scalp atraumatic and moist oral mucous membranes HEENT Narrative: Mallampati 4, no thrush Head and Scalp: normocephalic Resp normal respiratory effort, no retractions, no use of accessory muscles and clearto auscultation bilaterally Auscultation: Negative for rales, rhonchi or wheezes Cardio regular rate, regular rhythm, S1 normal heart sound, S2 normal heart sound, no murmurs, no rub, no gallops and no clicks Cardio Narrative: Large protuberant abdomen GI normal to inspection, nondistended, normoactive bowel sounds, soft to palpation and non-tender Extremity Extremity Narrative: Bilateral lower extremities with significant edema and erythema, no cyanosis or clubbing Skin Skin Narrative: Lower extremities as noted above, has areas of open small wounds and blistering,also patchy erythematous areas consistent with cellulitis Neuro oriented x3 and moves all extremities Neuro Narrative: Patient with significant bilateral lower extremity weakness related to chronic low back issues and chronic nonambulation, no focal deficits that are new Speech: speech normal Psych affect normal Psych Narrative: Very pleasant, appropriate Assessment & Plan Assessment/Plan (1) Sepsis: (2) Acute hyperkalemia: (3) Acute renal failure: QUALIFIERS: Acute renal failure type: unspecified Qualified Code(s): N17.9 - Acute kidney failure, unspecified (4) Hypoxia: (5) Lower extremity cellulitis: (6) Leukocytosis: (7) Anemia: (8) Lactic acidosis: PLAN: Plan Sepsis secondary to lower extremity cellulitis -Patient with leukocytosis, DIVINA, lactic acidosis, relative hypotension -Patient does not meet criteria for shock as he did not have persistent signsof endorgan damage despite fluids or persistent lactate/lactate greater than 4 -Blood cultures already growing out Enterococcus faecalis -Await sensitivities -Check procalcitonin -MRSA PCR is negative -UA was unremarkable -Chest x-ray was only suggestive of bilateral lower lobe atelectasis -White count is trending down from 21,000 on admission -Continue broad-spectrum antibiotics but will transition from Ancef and linezolid to Zosyn and vancomycin so we have pseudomonal coverage and bacteriocidal staph coverage -Renally dosed DIVINA -Her renal function is proving with hydration -Continue IV fluids -We will give 1 L bolus -Avoid nephrotoxins as able -Avoid NSAIDs--> patient did receive 1 dose of Toradol 50 mg in the emergency department prior to admission -Continue to trend -No current needs for REAR ADMIRAL -We will hold on nephrology consultation since renal function is improving Hyperkalemia -Potassium is 6.7 -Patient was given 1 dose of Kayexalate -Repeat Kayexalate dosing today -Should improve slowly as renal function improves -Patient is on any potassium supplementation Lactic acidosis -Resolved Hypoxia -Probably related to sepsis -Checks x-ray is overall unremarkable -Patient was requiring 3 L nasal cannula but was placed on BiPAP overnight. I suspect he utilizes BiPAP chronically -Sats are stable -Wean oxygen as able DM-2 -Med reconciliation has not been updated -Continue SSI -Accu-Cheks as ordered -Cardiac/carb controlled diet Hypertension -Hold antihypertensives currently as patient is relatively hypotensive -We will need medical reconciliation completed and will restart home medicationsas able and required Osteoarthritis -As needed Tylenol available BATOOL -Continue nocturnal CPAP Morbid obesity -BMI 57.4 -Complicates treatment, prognosis, outcomes -Recommend weight loss DVT prophylaxis -Continue subcu heparin 5000 units 3 times daily CODE STATUS Full code Charges/Coding Visit Charges Inpatient E&M: 74614 Subs Hosp L2 11/16/22 1249 <Electronically signed by Vanessa Matias DO> Cosigner Signature (if applicable): CC: ~ Signed [facility] Work Phone: [phone] 122-926107-04-2023 Consult note Author Florencio Barajasshoshana [facility] November 16, 2022 10:51am Note Date/Time November 16, 2022 8:15a m [facility] Medical Records Department [address] [place] [address] Consultation - Box Feeder 11/16/22 0756 MR#: [id number] Acct: [id number] Name: MELISSA ELIAS Rep #:[id number] : 1965 57 From: Florencio Greenfield MD PCP: Dr. Peter Thayer DO Status:ADM IN Location: ICU ICU05-1 Assessment & Plan Assessment/Plan (1) Septic shock due to Gram positive bacteria: PLAN: Plan 1. Septic shock, blood cultures already growing 2 out of 2 sets of gram-positive cocci, with multiple possible likely sources: Bilateral lower extremitycellulitis, left great toe ulcer, picked skin lesions. Septic shock is supported by hypotension, leukocytosis of 20,000, renal and hepatic insufficiency on presentation, responded to fluid resuscitation in the squad, presented normotensive to the ER. - treated initially with antibiotics and fluid in the ER with initial beneficial response on morning labs. Lactate is normalized. - Vanco and Zosyn continuing. He reportedly takes chronic prednisone, and oxycodone. -Pharmacy dosing of vancomycin with trough levels to be followed. -ID consult, spoke with Dr. Maurizio Stanley, nonurgent. - Left foot x-ray to check for osteomyelitis in the left great toe -Due to the the presence of both right hip and lower spine hardware, he may need an MRI of back, hip, and foot to rule out osteo in these areas. -Podiatry consult for debridement of left great toe and wound care -Local wound care -Surveillance cultures in the a.m., continue daily to every other day cultures until blood is cleared. 2. Acute renal insufficiency, severe hyperkalemia, likely due to #1 -Supportive care -Renal Vanco dosing 3. History of BATOOL on BiPAP at 16/10, rate of 12, 35% FiO2 nightly and as needednaps without chronic CO2 retention, likely due to morbid obesity. Continue current settings. -Avoid fluid overload -Low-salt diet -Limit calories to 1500/day. - Patient counseled on weight loss 4. Chest x-ray shows bibasilar atelectasis but SPO2 is 100% on 35% FiO2 currently. 4. Hypertension (not problematic at this time), with normal troponin and BNP. -Cautiously restart antihypertensive medications when clinically indicated 5. Type 2 diabetes -Reasonable glucose control, management per primary team. 6. Abnormal liver function test (AST), likely due to #1 -Repeat CMP in a.m. 7. Smoker, on Ventolin. 8. History of spinal fusion from L3-S1 and right hip arthroplasty, with artificial hardware per patient. 9. Morbid obesity with BMI 57.4, presents complications to care, movement, skincare, and affects all the problems above. 10. Caution for avoiding bilateral ulnar radiculopathy due to massive obesity when laying supine in bed. He is already complained of pain when laying flat, it is noted that patient spends most of his time upright in a wheelchair or recliner, and sleeps in a recliner most of the time. 11. ICU prophylaxis - Routine skin and wound care - Daily pantoprazole - Routine DVT prophylaxis - Chlorhexidine body washes daily. HPI Consult Data Date of Consult: 11/16/22 HPI Narrative Reason for Consultation: Critical care support in a patient with septic shock and cellulitis HPI Narrative: MELISSA ELIAS, is a 57 M with a history of chronic back pain status post 3 back surgeries including L3-S1 spinal fusion 2016 and 2020, on chronic prednisone, right hip dislocation with total hip arthroplasty in 2020 from osteoarthritis, chronic cellulitis for 2 years living at home with his parents, who fell 10 days ago and had increased erythema pain and weeping of his bilateral lower extremities for 5 days. He also has a deep left toe ulcer whichis uncared for and infected grossly. The cellulitis did not respond to outpatient local care and his family called with patient having increasing infection and needing transportation for more care. He was noted to be a 7 person lift. EMS noted a blood pressure of 86/38, he was not tachycardic due to being on chronic propranolol. In the ER, his blood pressure normalized and he was admitted to the ICU for further treatment due to SIRS/septic shock with end-organ damage including acute renal insufficiency with BUN of 112/5 now improved to 111/4.7, hyponatremia of 126 now 130, and severe hyperkalemia of 6.5. Initial VBG had no CO2 retention. He received Zosyn and vancomycin in the ER. He responded to 1500 cc fluid bolus and was normotensive in the ER but his whitecount was initially 21,000, now decreased to 17.1. Lactate 2.4 now 2.0. AST was mildly elevated at 39. He remains hyperkalemic at 6.7. He received Kayexalate. In the ICU he was given 10 units of regular insulin and D50. Past medical history: Includes hypothyroidism, hypercholesterolemia, hypertension, allergic rhinitis status post sinus surgery 1998, BATOOL on BiPAP foryears chronically at home with good compliance, morbid obesity with BMI 57.4 weight 366 pounds. Smoker, type II but diabetes, chronic cellulitis, osteoarthritis. 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 Blood cultures are already positive for gram-positive cocci in pairs. ID has been consulted due to the possibility of infected hardware, potential for polymicrobial sepsis, and osteomyelitis in the left great toe. [facility] Medical History (Updated 11/16/22 @ 10:[address] Florencio Greenfield MD) BMI greater than 40 Cellulitis COVID-19 H/o back surgery HTN (hypertension) BATOOL treated with BiPAP Septic shock due to Gram positive bacteria Type 2 diabetes mellitus Home Medications B-complex with vitamin C 1 tab PO DAILY 03/03/20 [History Last Taken Unknown] ascorbate calcium (vitamin C) 500 mg tablet 500 mg PO DAILY 03/03/20 [History Last Taken Unknown] calcium carbonate 500 mg calcium (1,250 mg) tablet (Calcium 500) 500 mg PO DAILY03/03/20 [History Last Taken Unknown] cholecalciferol (vitamin D3) 50 mcg (2,000 unit) capsule 50 mcg PO DAILY 03/03/20 [History Last Taken Unknown] diclofenac sodium 50 mg tablet,delayed release 50 mg PO BID 03/03/20 [History Last Taken Unknown] fluticasone propionate 50 mcg/actuation nasal spray,suspension (Flonase Allergy Relief) 1 spray intranasal DAILY 03/03/20 [History Last Taken Unknown] levocetirizine 5 mg tablet (24HR Allergy Relief) 5 mg PO DAILY 03/03/20 [History Last Taken Unknown] olmesartan 40 mg-hydrochlorothiazide 25 mg tablet 1 ea PO DAILY 03/03/20 [History Last Taken Unknown] oxycodone-acetaminophen 7.5 mg-325 mg tablet 1 ea PO Q4H PRN Pain 03/03/20 [History Last Taken Unknown] propranolol 10 mg tablet 10 mg PO DAILY 03/03/20 [History Last Taken Unknown] tizanidine 4 mg tablet 1 ea PO TID PRN Spasms 03/03/20 [History Last Taken Unknown] zinc 50 mg tablet 50 mg PO DAILY 03/03/20 [History Last Taken Unknown] Allergy/AdvReac Type Severity Reaction Status Date / Time No Known Allergies Allergy Verified 11/15/22 18:01 Family History Mother Hypertension Hypotension Diabetes Arthritis Father Hypertension Hypotension Heart disease Status post double vessel coronary artery bypass angina Arthritis Grandfather Prostate cancer Grandmother Uterine cancer Surgical History H/O sinus surgery Social History household members: other details: parents current occupational status: employed and retired Smoking Status: Former smoker alcohol intake: never substance use type: does not use do you feel safe at home: Yes Physical Exam Narrative Morbidly obese awake and alert talking and articulate on BiPAP and then saturating well on 3 L. HEENT unremarkable mucous membranes moist dentition good Neck is obese, no lesions Lungs are diminished due to obesity with suboptimal exam, but grossly clear bilaterally, no cough no sputum production. No wheezing rales or rhonchi. Heart normal S1-S2 with no murmurs Abdomen is obese, multiple areas of picked skin with eschars, none open or erythematous or purulent. Many chronically picked lesions healed. Extremities have bilateral cellulitis, severe venous stasis changes bilaterally,with greenish drainage on a lizbet behind his left leg. There is a bandage on the left great toe which was inspected, with necrotic skin overlying, deep lesion, grossly infected. Neurologic is diffusely weak, patient is unable to lift his feet off the bed. Many areas of abnormal skin due to picking, venous stasis changes of the lower extremity, edema, breakdown due to pressure trauma related to obesity. Lab / Micro Data 11/16/22 03:14 11/16/22 03:14 Labs: Laboratory Results - last 24 hr 11/15/22 18:35: WBC 21.0 H, RBC 3.81 L, Hgb 10.1 L, Hct 33.3 L, MCV 87.4, MCH 26.5 L, MCHC 30.3 L, RDW Std Deviation 47.4 H, RDW Coeff of Mary 14.7 H, Plt Count 387, MPV 9.9, Sodium 126 L, Potassium 6.6 H*, Chloride 93 L, Carbon Dioxide 23.0, Anion Gap 10, BUN 112 H*, Creatinine 5.08 H, Estim Creat Clear Calc 15.36, Est GFR (MDRD) Af Amer 15 L, Est GFR (MDRD) Non-Af 13 L, BUN/Creatinine Ratio 22.0 H, Glucose 240 H, Lactic Acid 2.4 H*, Calcium 9.8, Troponin I High Sens 7, B-Natriuretic Peptide 3.9 11/15/22 20:04: POC Glucose 215 H 11/15/22 22:27: POC Glucose 155 H 11/15/22 22:30: Troponin I High Sens 6, MRSA (PCR) Negative 11/15/22 23:30: Lactic Acid 2.0 11/16/22 03:14: WBC 17.1 H, RBC 3.51 L, Hgb 9.4 L, Hct 30.0 L, MCV 85.5, MCH 26.8 L, MCHC 31.3 L, RDW Std Deviation 45.5 H, RDW Coeff of Mary 14.6, Plt Count 331, MPV 9.7, Immature Gran % (Auto) 0.500, Neut % (Auto) 88.7 H, Lymph % (Auto)4.7 L, Hayes % (Auto) 5.9, Eos % (Auto) 0.1, Baso % (Auto) 0.1, Absolute Neuts (auto) 15.2 H, Absolute Lymphs (auto) 0.80 L, Nucleated RBC % 0, Sodium 130 L, Potassium 6.7 H*, Chloride 98, Carbon Dioxide 26.0, Anion Gap 6, BUN 111 H*, Creatinine 4.17 H, Estim Creat Clear Calc 18.71, Est GFR (MDRD) Af Amer 19 L, Est GFR (MDRD) Non-Af 16 L, BUN/Creatinine Ratio 26.6 H, Glucose 127 H, Calcium 9.0, Total Bilirubin 0.40, AST 39 H, ALT 32, Alkaline Phosphatase 65, Total Protein 6.0 L, Albumin 2.3 L, Globulin 3.7, Albumin/Globulin Ratio 0.6 L Micro: Microbiology 11/15/22 19:27 Blood Culture (Wb) - Left Hand Blood Culture - Preliminary 11/15/22 18:35 Blood Culture (Wb) - Left Hand Blood Culture - Preliminary Growing 2 out of 2 sets gram-positive cocci, final ID pending. ABG Data ABG results: ABG 11/15/22 19:09 Specimen Type MRAY ELLEN VBG pH 7.37 VBG pO2 113 H VBG HCO3 24 VBG Total CO2 25 VBG O2 Sat (Calc) 98 H VBG Base Excess -2 L POC Mix VBG pCO2 Pt Tmp 41.0 O2 Delivery Device Cannula Liter Flow 3.0 Radiology Impression Chest X-Ray 11/15/22 19:00 IMPRESSION: Lower lobe atelectasis. Electronically Signed: Art Jackson MD at 19:16 EDT , Charges/Coding Procedures Hospitalists Procedures: [id number] Critial Care 1st Hr 11/16/22 1051 <Electronically signed by Florencio Greenfield MD> Cosigner Signature (if applicable): CC: Dr. Michele Montes MD; Dr. Florencio Greenfield MD; Dr. Peter Thayer DO; Dr. Minda Cm MD~ Signed [facility] Work Phone: [phone] 161-581707-04-2023 Discharge summary Author Donovan [facility] November 16, 2022 12:46am Note Date/Time November 15, 2022 6:51p [facility] Medical Records Department [address] [place] [id number] Emergency Department Summary 11/15/22 MR#: [id number] Acct: [id number] Name: MELISSA ELIAS Rep #:[id number] : 1965 57 From: Donovan Monteiro PCP: Dr. Peter Thayer DO Status:ADM IN Location: ICU ICU[address] [place] [address] History of Present Illness Chief Complaint: Cellulitis [facility] Medical History Cellulitis H/o back surgery HTN (hypertension) BATOOL treated with BiPAP Type 2 diabetes mellitus Home Medications B-complex with vitamin C 1 tab PO DAILY 03/03/20 [History Last Taken Unknown] ascorbate calcium (vitamin C) 500 mg tablet 500 mg PO DAILY 03/03/20 [History Last Taken Unknown] calcium carbonate 500 mg calcium (1,250 mg) tablet (Calcium 500) 500 mg PO DAILY03/03/20 [History Last Taken Unknown] cholecalciferol (vitamin D3) 50 mcg (2,000 unit) capsule 50 mcg PO DAILY 03/03/20 [History Last Taken Unknown] diclofenac sodium 50 mg tablet,delayed release 50 mg PO BID 03/03/20 [History Last Taken Unknown] fluticasone propionate 50 mcg/actuation nasal spray,suspension (Flonase Allergy Relief) 1 spray intranasal DAILY 03/03/20 [History Last Taken Unknown] levocetirizine 5 mg tablet (24HR Allergy Relief) 5 mg PO DAILY 03/03/20 [History Last Taken Unknown] olmesartan 40 mg-hydrochlorothiazide 25 mg tablet 1 ea PO DAILY 03/03/20 [History Last Taken Unknown] oxycodone-acetaminophen 7.5 mg-325 mg tablet 1 ea PO Q4H PRN Pain 03/03/20 [History Last Taken Unknown] propranolol 10 mg tablet 10 mg PO DAILY 03/03/20 [History Last Taken Unknown] tizanidine 4 mg tablet 1 ea PO TID PRN Spasms 03/03/20 [History Last Taken Unknown] zinc 50 mg tablet 50 mg PO DAILY 03/03/20 [History Last Taken Unknown] Allergy/AdvReac Type Severity Reaction Status Date / Time No Known Allergies Allergy Verified 11/15/22 18:01 Family History Mother Hypertension Hypotension Diabetes Arthritis Father Hypertension Hypotension Heart disease Status post double vessel coronary artery bypass angina Arthritis Grandfather Prostate cancer Grandmother Uterine cancer Surgical History H/O sinus surgery Social History household members: other details: parents current occupational status: employed and retired Smoking Status: Former smoker alcohol intake: never substance use type: does not use do you feel safe at home: Yes EXAM Physical Exam Const Vital Signs: 11/15/22 17:57 11/15/22 18:14 11/15/22 20:01 Temperature 97.7 F L 97.3 F L Temperature Source Oral Temporal Pulse Rate 80 79 84 Respiratory Rate 16 26 H 20 H Blood Pressure 95/46 L 101/44 L 111/42 L Blood Pressure Mean 62 63 65 Pulse Ox 94 95 95 Oxygen Delivery Method Room Air Nasal Cannula Oxygen Flow Rate (L/min) 3 MDM MDM MDM Narrative Medical decision making narrative: HISTORY OF PRESENT ILLNESS: 57-year-old male here for bilateral redness some occasional pain in the setting of prior outpatient treatment for cellulitis. States he is unsure of the antibiotic he was on. He notes since then he has been more weak, fatigued. States he had bilateral leg pain and redness. Denies any focal numbness or weakness. Denies any chest pain. He does endorse shortness of breath. Denies any cough. REVIEW OF SYSTEMS: Pertinent positives: Redness Pertinent negatives: Syncope, focal numbness or weakness. PHYSICAL EXAM: Nursing triage notes reviewed, Vital signs reviewed Constitutional: please see mdm HENT: MMM Eyes: Pupils equal round and reactive to light, Extraocular muscles intact Neck: No stridor, no JVD, full neck ROM Lungs: Clear to auscultation, No wheezing or rales. No increased work of breathing, no conversational dyspnea, no accessory muscle use, no nasal flaring. No respiratory distress noted Heart: Regular rate and rhythm, No murmurs, No rubs and No gallops, 2+ distal pulses (radial, femoral, posterior tibial) in all extremities Abdomen: Soft, there is no tenderness, rigidity, rebound or guarding, no obviousperitoneal signs, no palpable pulsatile abdominal masses, no auscultated abdominal bruit : No CVAT Extremities: No edema Neuro: No focal neurological deficits, cranial nerves II through XII intact, 5/5strength in all extremities. Intact sensation to light touch in all extremities,2+ reflexes bilateral patella tendons. Normal gait. No ataxia. Skin: Confluent erythema noted to both lower extremities from proximal to talus up to the gastrocnemius. No crepitus, no bullae MEDICAL DECISION MAKING: Chief Complaint: Leg redness External records reviewed: No recent ED visits or hospitalizations Factors affecting care: Type 2 diabetes, obesity Social determinants of health: none History obtained from others: The patient's Consults: Internal medicine ALL IMAGES (IF OBTAINED) HAVE BEEN PERSONALLY REVIEWED AND INTERPRETED BY MYSELF. CBC with marked leukocytosis suggestive of systemic inflammation, mild anemia, no thrombocytopenia, VBG without significant CO2 retention, no evidence of metabolic acidosis, BMP with hyponatremia, hyperkalemia, no anion gap to suggest endorgan hypoperfusion, there is acute renal failure with a creatinine of 5 Lactate elevated concern for endorgan hypoperfusion Troponin is negative, no evidence of myocardial ischemia BNP within normal limits suggestive of no heart failure MDM Narrative: 57-year-old male here with concern for failed outpatient treatment of cellulitis. He notes bilateral leg redness. Exam with bilateral leg redness but no bullae, crepitus or signs of necrotizing fasciitis. I considered the following differential diagnosis: Bilateral cellulitis, necrotizing fasciitis There is no clinical evidence to suggest necrotizing fasciitis. Patient was noted to be hypoxic requiring 3 L by nasal cannula lungs are clear however. Given this I obtained a broad lab and imaging work-up to further elucidate the etiology patient complaints. Labs with evidence of sepsis with elevated white blood cell count signs of endorgan hypoperfusion, signs of acute renal failure. He was given ideal body weight normal saline bolus of 1500 cc, broad-spectrum antibiotics after blood cultures. Lactate was initially elevated will repeat after fluids. There is no evidence of CO2 retention. His hyperkalemia is treated with IV insulin. Will admit under internal medicine physician for ongoing antibiotic therapy, electrolyte correction and fluids for acute renal failure. The patient and/or family, caregivers express understanding. The patient and/orfamily, caregivers agrees with the plan. Total critical care time today provided was at least 0 minutes. This excludes separately billable procedures. Critical care time (if documented) is secondary to the patient having high probability of clinically significant/life threatening deterioration in the patient's condition which required my urgent intervention. Shared decision making: I will have a discussion with the patient and or visitors regarding risk/benefits of further testing or admission. They will be made aware of of the risk/benefits inherent in this decision they will be given the opportunity to voice understanding. Lab Data Labs: Laboratory Results - last 24 hr 11/15/22 11/15/22 18:35 20:04 WBC 21.0 H RBC 3.81 L Hgb 10.1 L Hct 33.3 L MCV 87.4 MCH 26.5 L MCHC 30.3 L RDW Std Deviation 47.4 H RDW Coeff of Mary 14.7 H Plt Count 387 MPV 9.9 Sodium 126 L Potassium 6.6 H* Chloride 93 L Carbon Dioxide 23.0 Anion Gap 10 BUN 112 H* Creatinine 5.08 H Estim Creat Clear Calc 15.36 Est GFR (MDRD) Af Amer 15 L Est GFR (MDRD) Non-Af 13 L BUN/Creatinine Ratio 22.0 H Glucose 240 H Lactic Acid 2.4 H* Calcium 9.8 Troponin I High Sens 7 B-Natriuretic Peptide 3.9 POC Glucose 215 H ABG Data ABG results: ABG 11/15/22 19:09 Specimen Type MARY ELLEN VBG pH 7.37 VBG pO2 113 H VBG HCO3 24 VBG Total CO2 25 VBG O2 Sat (Calc) 98 H VBG Base Excess -2 L POC Mix VBG pCO2 Pt Tmp 41.0 O2 Delivery Device Cannula Liter Flow 3.0 Radiography Diagnostic Testing: Clinical Impression(s) from Imaging Studies Chest X-Ray 11/15/22 19:00 IMPRESSION: Lower lobe atelectasis. Electronically Signed: Art Jackson MD at 19:16 EDT , Discharge Plan Dx/Rx/DC Orders Clinical Impression: Acute renal failure, Bilateral cellulitis of lower leg, Hypoxia, Acute hyperkalemia Disposition Disposition: Acute Care Hospital [facility] Discharge Date/Time: 11/15/22 21:17 What to do if you have Problems For any increased pain, shortness of breath, bleeding, nausea or vomiting, chestpain, or any unexpected problems, contact your Primary Care Provider. Call [facility] ([phone]) or report to the closest Emergency Room. Call 911 if necessary. 11/16/2245 <Electronically signed by Donovan Lamar DO> Cosigner Signature (if applicable): CC: Dr. Peter Thayer DO ~ Signed [facility] Work Phone: [phone]) 487-943107-04-2023 History and physical note Author Michele Montes [facility] November 15, 2022 11:38pm Note Date/Time November 15, 2022 8:33p m [facility] Medical Records Department [address] [place] [address] H&P Exam - Hospitalist 11/15/222024 MR#: [id number] Acct: [id number] Name: MELISSA ELIAS Rep #:[id number] : 1965 57 From: Michele Montes MD PCP: Dr. Peter Malys, DO Status:ADM IN Location: ICU ICU05-1 HPI - General General Date of Admission: 11/15/22 Date of Service: 11/15/22 Chief Complaint: Bilateral lower extremity redness HPI Narrative MELISSA ELIAS, is a 57 M with a significant history diabetes mellitus and hypertension who presents emergency department with swelling and erythema of bilateral legs. Of note patient reports that chronically he has had erythema and swelling of both legs but it did seem to be clearing up. He reported he haschronic lower back pain. Of note patient had a hip surgery and back surgery in 2020. He reported that because of his chronic back pain he has difficulty standing; walking and uses a wheelchair. Subsequently he fell 10 days ago afterwhich she developed redness swelling and leakage from bilateral legs. He deniesincreased warmth in the bilateral legs. Indeed he reports that his legs have felt cold. He reports chronic numbness in his bilateral legs. His mother has been helping him to dress his bilateral legs. He denies any fever. He reports chills. He reports anorexia. He reports fatigue. He reports weakness from his waist down. Of note patient completed a course of antibiotics. Reportedly his symptoms was getting better but then it began to get worse again. At the emergency department patient was found to have DIVINA, lactic acidosis, and hyperkalemia. [facility] Medical History Cellulitis H/o back surgery HTN (hypertension) BATOOL treated with BiPAP Type 2 diabetes mellitus Home Medications B-complex with vitamin C 1 tab PO DAILY 03/03/20 [History Last Taken Unknown] ascorbate calcium (vitamin C) 500 mg tablet 500 mg PO DAILY 03/03/20 [History Last Taken Unknown] calcium carbonate 500 mg calcium (1,250 mg) tablet (Calcium 500) 500 mg PO DAILY03/03/20 [History Last Taken Unknown] cholecalciferol (vitamin D3) 50 mcg (2,000 unit) capsule 50 mcg PO DAILY 03/03/20 [History Last Taken Unknown] diclofenac sodium 50 mg tablet,delayed release 50 mg PO BID 03/03/20 [History Last Taken Unknown] fluticasone propionate 50 mcg/actuation nasal spray,suspension (Flonase Allergy Relief) 1 spray intranasal DAILY 03/03/20 [History Last Taken Unknown] levocetirizine 5 mg tablet (24HR Allergy Relief) 5 mg PO DAILY 03/03/20 [History Last Taken Unknown] olmesartan 40 mg-hydrochlorothiazide 25 mg tablet 1 ea PO DAILY 03/03/20 [History Last Taken Unknown] oxycodone-acetaminophen 7.5 mg-325 mg tablet 1 ea PO Q4H PRN Pain 03/03/20 [History Last Taken Unknown] propranolol 10 mg tablet 10 mg PO DAILY 03/03/20 [History Last Taken Unknown] tizanidine 4 mg tablet 1 ea PO TID PRN Spasms 03/03/20 [History Last Taken Unknown] zinc 50 mg tablet 50 mg PO DAILY 03/03/20 [History Last Taken Unknown] Allergy/AdvReac Type Severity Reaction Status Date / Time No Known Allergies Allergy Verified 11/15/22 18:01 Family History Mother Hypertension Hypotension Diabetes Arthritis Father Hypertension Hypotension Heart disease Status post double vessel coronary artery bypass angina Arthritis Grandfather Prostate cancer Grandmother Uterine cancer Surgical History H/O sinus surgery Social History household members: other details: parents current occupational status: employed and retired Smoking Status: Former smoker alcohol intake: never substance use type: does not use do you feel safe at home: Yes ROS ROS Narrative Pertinent positives and pertinent negatives as noted in HPI. All other systems were reviewed and are negative Vital Signs Vital Signs Vital Signs: 11/15/22 17:57 11/15/22 18:14 Temperature 97.7 F L Temperature Source Oral Pulse Rate 80 79 Respiratory Rate 16 26 H Blood Pressure 95/46 L 101/44 L Blood Pressure Mean 62 63 Pulse Ox 94 95 Oxygen Delivery Method Room Air Nasal Cannula Oxygen Flow Rate (L/min) 3 Weight Weight: 168.3 kg Body Mass Index (BMI) 58.1 Physical Exam Narrative Physical exam: General: Well-nourished, well-developed. Head: Normocephalic, atraumatic, no tenderness Eyes: Vision is grossly intact. EOMI ENT, no trauma, dry mucous membranes, no rhinorrhea Neck: Nontender, No thyromegaly. CVS: Regular rate and rhythm. S1-S2 present. No murmur, gallop or rub. Respiratory : clear to auscultation bilaterally, chest wall nontender Abdomen: Soft, nontender, nondistended, normal bowel sounds, no masses : Deferred Back: Nontender, no CVA tenderness, no midline spinal tenderness, deformities, step-offs Extremities: Unable to raise bilateral legs. Skin: Erythematous bilateral legs, swelling and seepage. Neuro: Alert, oriented, cranial nerves II through XII grossly intact. Psychiatry: Normal mood. Normal affect. Not depressed. Not anxious. Results Lab / Micro Data 11/15/22 18:35 11/15/22 18:35 Labs: Laboratory Results - last 24 hr 11/15/22 18:35: WBC 21.0 H, RBC 3.81 L, Hgb 10.1 L, Hct 33.3 L, MCV 87.4, MCH 26.5 L, MCHC 30.3 L, RDW Std Deviation 47.4 H, RDW Coeff of Mary 14.7 H, Plt Count 387, MPV 9.9, Sodium 126 L, Potassium 6.6 H*, Chloride 93 L, Carbon Dioxide 23.0, Anion Gap 10, BUN 112 H*, Creatinine 5.08 H, Estim Creat Clear Calc 15.36, Est GFR (MDRD) Af Amer 15 L, Est GFR (MDRD) Non-Af 13 L, BUN/Creatinine Ratio 22.0 H, Glucose 240 H, Lactic Acid 2.4 H*, Calcium 9.8, Troponin I High Sens 7, B-Natriuretic Peptide 3.9 11/15/22 20:04: POC Glucose 215 H ABG Data ABG results: ABG 11/15/22 19:09 Specimen Type MARY ELLEN VBG pH 7.37 VBG pO2 113 H VBG HCO3 24 VBG Total CO2 25 VBG O2 Sat (Calc) 98 H VBG Base Excess -2 L POC Mix VBG pCO2 Pt Tmp 41.0 O2 Delivery Device Cannula Liter Flow 3.0 Radiology Impression Chest X-Ray 11/15/22 19:00 IMPRESSION: Lower lobe atelectasis. Electronically Signed: Art Jackson MD at 19:16 EDT , Assessment & Plan Assessment/Plan (1) Severe sepsis: (2) Acute hyperkalemia: (3) Acute renal failure: QUALIFIERS: Acute renal failure type: unspecified Qualified Code(s): N17.9 - Acute kidney failure, unspecified (4) BMI greater than 40: (5) Type 2 diabetes mellitus: QUALIFIERS: Diabetes mellitus complication detail: with polyneuropathy Diabetes mellitus complication status: with neurologic complications Diabetes mellitus fpc insulin use: without fpc use Qualified Code(s): E11.42 - Type 2 diabetes mellitus with diabetic polyneuropathy PLAN: Plan Sepsis secondary to DIVINA The patient presented with sepsis due to (bilateral ) with acute sepsis related organ dysfunction as evidenced by DIVINA and lactic acidosis). SIRS criteria: Respiratory rate more than 20 (26 in patient's case) WBC more than 12,000 (21,000 patient case) Bilateral leg with erythema and swelling. Of note on coming to have bilateral leg cellulitis patient does not have tenderness. However with other markers of leukocytosis we will diagnose as severe sepsis secondary to cellulitis and treat. organ dysfunction: Creatinine more than 2 (5.08 in patient's case). His creatinine on 06/04/2021 was 0.89. BUN on presentation was 112. BUN on 06/04/2021 was 17 Trend CMP. Lactate more than 2 mmol/L; trend Vancomycin and Zosyn in the emergency department. With patient's DIVINA will change antibiotics to linezolid and cefazolin. With lactic acidosis per Hospital protocol will admit patient to intensive care unit. Box Feeder consult. Fluid restriction bolus is not indicated since patient is not hypotensive lacticacid is normal on 4 Acute hyperkalemia Potassium 6.7 presentation. Potassium on 06/04/2021 was 3.6. Received IV fluids, and glucose in the emergency department. Will admit to intensive care unit. IV fluids as above. Kayexalate and MiraLAX ordered. Albuterol 10 mg inhalation ordered. Repeat potassium and CMP. Diabetes mellitus with polyneuropathy Patient with hyperglycemia on presentation Monitor Accu-Cheks Correction scale insulin ordered. Bilateral leg weakness PT and OT to work with patient. Case management consult. Morbid Obesity: BMI: 58.1 kg/m?. Complicates care. Lifestyle modification recommended. DVT prophylaxis Subcutaneous heparin ordered. Sepsis Attestation Sepsis Alert: Yes Sepsis Attestation: Agree w/Sepsis Date exam was performed: 11/15/22 Time exam was performed: 20:45 Possible Source of Sepsis: Skin/soft tissue Sepsis Organ Dysfunction Criteria Present: Creatinine > 2.0 mg/dL and Lactic Acid > 2 mmol/L Charges/Coding Visit Charges Inpatient E&M: 08970 Init Hosp L3 11/15/22 2641 <Electronically signed by Michele Montes MD> Cosigner Signature (if applicable): CC: Dr. Michele Montes MD; Dr. Peter Thayer DO~ Signed [facility] Work Phone: [phone]) 988-404809-03-2021 [facility]08-26-2021 NotePhysical Therapy Inpatient Evaluation Medical Diagnosis: s/p L2-3 TLIF, T10-L3 PLIF, L5-S1 PLIF, with partial removal L3-S1 and pelvic posterior instrumentation with reinstrumentation T10-S1 and L2-3 david oste[address] performed by Dr[address] Rabago on 01/08/21 Therapy Diagnosis: Rank Code Description 1 R26.81 Unsteadiness on feet Demographics: Age: 55Y Gender: Male Primary Language: German Preferred Language: German Referring Service/Team: Orthopedics Past Medical History: Obstructive sleep apnea, diabetes, morbid obesity, hyperlipidemia, hypertension Multiple orthopedic surgeries as noted in the chart. History of Present Illness: Date of Onset: 01/07/21 Additional Information: Elective Surgery Date of Admission: 01/07/2021 6:10:00 AM Rehabilitation Precautions/Restrictions: Spinal precautions, log roll, hemovac Imaging/Testing Results from Chart: n/a SUBJECTIVE Prior Level of Functioning: Indoor Mobility: Patient needed partial assistance from another person to complete activities. Stairs: Patient needed partial assistance from another person to complete activities. Use of cane 3 weeks prior to recent use of ww for ambulation for last 3 weeks. When standing is required for long time- use of computer chair on wheels for mobility. Denies falls. Noted numbness in toes bilat LE with LLE numbness proximal. Indep with ADL. Shares cooking and cleaning with parents. Prior Device Use: Performance GG110. Prior Device None of Above Yes Patient/Caregiver Goals: Patient's functional goals: To get stronger Pain: Patient currently has pain. Location: Back pain Type: Acute [facility] PATIENT NAME: MELISSA ELIAS [address] MEDICAL REC #: [id number] [place] [address] ADMIT DATE: SERVICE DATE: 01/08/21 Physical Therapy Assessment Report ATTENDING PHY: Omari Rabago MD Quality: Aching. Pain Scale: Visual Analog (VAS). Patient reports a pain level of 8 out of 10. Patient's acceptable level of pain 0 out of 10. Interferes with physical activity. Pain is alleviated by: Pain is exacerbated by: Movement Interventions: Repositioned patient. Home Environment: Patient lives with Parents 24.7 supv , who is able to assist patient at discharge. Patient lives in a single family home. Home is two levels. Patient is not required to manage stairs within the home. First floor full bathroom setup available. There are 3 steps to enter the home, with bilateral handrails. There is no ramp available to enter home. Equipment Owned: ww, cane, filtration operator, sock aid, WIS with seat and grab bars Social History: Marital Status: Unknown Children: It is unknown whether patient has children Employment Status: Not working Recreational Activities/Hobbies: Cooking, Writing children books OBJECTIVE Cognitive Screen Responsiveness: Alert, shaking, anxious Orientation: Oriented to person, place, time, and situation. Following Commands: Patient is able to follow 3-step commands. Range of Motion Upper Extremity: Grossly within functional limits Lower Extremity: Grossly within functional limits Strength Upper Extremity: Grossly within functional limits Lower Extremity: Grossly within functional limits Tone/Spasticity: Within Normal Limits throughout. Sensation: Grossly intact. Balance: Dynamic balance in a seated position is fair. Dynamic balance in a standing position is fair. Therapeutic/Functional Activities: Bed Mobility: All bed mobility including supine to sit, rolling, scooting. requiring maximal assistance. Max assistance for log roll, verbal cues for sequencing, pt holding breathe Transfers: Patient transferred sit to/from stand requiring moderate assistance of 1 person. Patient used the following equipment: Arms of chair. Slow to rise, verbal cues for hand placement, moderate assistance upon rise with [facility] PATIENT NAME: MELISSA ELIAS [address] MEDICAL REC #: [id number] [place] [address] ADMIT DATE: SERVICE DATE: 01/08/21 Physical Therapy Assessment Report ATTENDING PHY: Omari Rabago MD strong right lateral trunk lean with rise. Decreased eccentric control with sitting. Sit<>stand from chair with bilat arms- moderate assistance Locomotion/Gait/Ambulation: Patient was minimal assist with gait/ambulation of 1 person for 6 steps, 16 steps . Patient requires the following assistive device(s): Rolling walker. Slow step to gait pattern, wide base of support, decrease foot clearance bilat LE, shaking bilat UE on ww, increase SOB and sweating. One seated rest break x 2 minutes between walks Gait Deviations: No gait deviations. Stairs: Not assessed. AM-PAC Basic Mobility: Turning Over in Bed: A lot of difficulty Si (more content not included)...[facility]08-26-2021 Note Occupational Therapy Inpatient Evaluation Medical Diagnosis: s/p L2-3 TLIF, T10-L3 PLIF, L5-S1 PLIF, with partial removal L3-S1 and pelvic posterior instrumentation with reinstrumentation T10-S1 and L2-3 david oste[address] performed by Dr. Rabago on 01/08/21 OCCUPATIONAL PROFILE AND HISTORY Therapy Diagnosis: Rank Code Description 1 Z74.1 Need for assistance with personal care 2 M62.81 Muscle weakness (generalized) 3 R26.81 Unsteadiness on feet Demographics: Age: 55Y Gender: Male Primary Language: German Preferred Language: German Referring Service/Team: Orthopedics Past Medical History: Past Medical History Obstructive sleep apnea, diabetes, morbid obesity, hyperlipidemia, hypertension Past Surgical History Multiple orthopedic surgeries as noted in the chart. History of Present Illness: 01/07/21 Additional Information: Elective Surgery Date of Admission: 01/07/2021 6:10:00 AM Rehabilitation Precautions/Restrictions: fall risk, spinal precautions, no brace, hemavac Imaging/Testing Results from Chart: n/a Prior Level of Functioning: Self Care: Patient completed the activities by him/herself, with or without an assistive device, with no assistance from a helper. Functional Cognition: Patient completed the activities by him/herself, with or without an assistive device, with no assistance from a helper. Pt states he was ind with ADLs and IADLs. He states he would need to sit in the kitchen on computer chair during cooking tasks due to decreased activity tolerance. He states he was using a FWW for mobility due to pain but was initially using a cane. Denies falls. Drives. Patient/Caregiver Goals: Patient's functional goals: go home Pain: Patient currently has pain. Location: back and abdomen Type: Acute [facility] PATIENT NAME: MELISSA ELIAS [address] MEDICAL REC #: [id number] [place] [address] ADMIT DATE: SERVICE DATE: 01/08/21 Occupational Therapy Assessment ATTENDING PHY: Omari Rabago MD Quality: Aching. Pain Scale: Visual Analog (VAS). Patient reports a pain level of 8 out of 10. Patient's acceptable level of pain 0 out of 10. Interferes with physical activity. Pain is alleviated by: pain meds Pain is exacerbated by: movement Interventions: Repositioned patient. Home Environment: Patient lives with with his parents , who is able to assist patient at discharge. Patient lives in a single family home. Home is two levels. Patient is not required to manage stairs within the home. First floor full bathroom setup available. There are 3 steps to enter the home, with bilateral handrails. There is no ramp available to enter home. 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 Recreational Activities/Hobbies: cooking, writing children's books OBJECTIVE/OCCUPATIONAL PERFORMANCE Activities of Daily Living Current Status Previous Status ADLs Feeding Independent - Grooming Supervision - Bathing-UE Minimal assistance - Bathing-LE Maximal assistance - Dressing-UE Minimal assistance - Dressing-LE Maximal assistance - Toileting Moderate assistance - AM-PAC Daily Activities: Putting On/Taking Off Lower Body Clothing: A lot of help needed Bathing:: A lot of help needed Toileting: A lot of help needed Putting On/Taking Off Upper Body Clothing: A little help needed Grooming: No help needed Eating a Meal: No help needed Raw Score = 17 , AM-PAC t-Scale Score = 37.26 and G-Code Modifier = CK Functional Mobility: Bed Mobility: All bed mobility including supine to sit, rolling, scooting. requiring maximal assistance. cueing for safe log roll technique, [facility] PATIENT NAME: MELISSA ELIAS [address] MEDICAL REC #: [id number] [place] [address] ADMIT DATE: SERVICE DATE: 01/08/21 Occupational Therapy Assessment ATTENDING PHY: Omari Rabago MD cueing for controlled breathing Transfers: Patient transferred sit to/from stand requiring moderate assistance of 1 person. Patient used the following equipment: Arms of chair. slow to rise, stands with initial R side lean, stands to FWW; requires controlled descent Locomotion/Gait/Ambulation: Patient was minimal assist with gait/ambulation of 1 person for 5'x2 . Patient requires the following assistive device(s): Rolling walker. seated rest break needed due to SOB, sweating and fatigue Range of Motion Upper Extremity: Grossly within functional limits Strength Upper Extremity: Grossly within functional limits Balance: Dynamic balance in a seated position is good. D (more content not included)...[facility] Author Vanessa Matias [facility] November 17, 2022 2:03pm Note Date/Time November 17, 2022 1:45p [facility] Medical Records Department [address] [place] [address] Discharge Summary 11/17/22 1340 MR#: [id number] Acct: [id number] Name: MELISSA ELIAS Rep #:[id number] : 1965 57 From: Vanessa Matias DO PCP: Dr. Peter Thayer DO Status:ADM IN Location: ICU [place] [address] Providers Date of Admission: 11/15/22 Date of Discharge: 11/17/22 Primary Care Physician: Dr. Peter Thayer DO Consultations 11/15/22 20:56 Consult: Box Feeder / Pulmonary Medicine Routine Consulting Provider: Florencio Greenfield Reason for Consult: Sepsis EMERGENT Consult: No MD Notified: Yes Date Notified: 11/15/22 Time Notified: 20:42 Method of Notification: ED Physician Initiated 11/16/22 09:58 Consult: Infectious Disease Routine Consulting Provider: Minda Cm Reason for Consult: septic shock, ?osteo, cellulitis, ?infected hardware R hip and/or spine EMERGENT Consult: No MD Notified: Yes Date Notified: 11/16/22 Time Notified: 09:59 Method of Notification: Answering Service Method of Consult:: In-Person 11/16/22 10:30 Consult: Podiatry Routine Consulting Provider: Alexei Marley Reason for Consult: Debridement L toe wound, leg care, patient with septic shock and bacteremia EMERGENT Consult: No MD Notified: No Date Notified: 11/16/22 Time Notified: 10:30 Method of Notification: Verbal 11/17/22 07:46 Consult: Onc/Wound/surgical processor Routine Comment: Reason for Consult:: L great toe wound, cellulitis 11/17/22 07:53 Consult: Podiatry Routine Consulting Provider: Alexei Marley Reason for Consult: L great toe wound EMERGENT Consult: No MD Notified: Yes Date Notified: 11/16/22 Time Notified: 16:00 Method of Notification: Verbal 11/17/22 08:11 Consult: Neurology Routine Consulting Provider: Carlos Lacy Reason for Consult: spinal cord acute paralysis EMERGENT Consult: Yes Notified: Yes Date Notified: 11/17/22 Time Notified: 08:13 Method of Notification: Verbal Comments:: message left on cell phone via passenger elevator operator Reason For Visit: SEPSIS SECONDARY TO BILATERAL CELLULITIS Diagnosis Discharge Diagnosis (1) Sepsis due to Enterobacter: Status: Acute Code(s): A41.59 - Other Gram-negative sepsis (2) Injury to L1 level of spinal cord: Status: Acute Code(s): S34.101A - Unspecified injury to L1 level of lumbar spinal cord, initial encounter (3) Cellulitis of leg without foot, right: Status: Acute Code(s): L03.115 - Cellulitis of right lower limb (4) Cellulitis of leg without foot, left: Status: Acute Code(s): L03.116 - Cellulitis of left lower limb (5) Acute renal failure: Status: Acute Code(s): N17.9 - Acute kidney failure, unspecified Qualifiers: Acute renal failure type: unspecified Qualified Code(s): N17.9 - Acute kidney failure, unspecified (6) BATOOL treated with BiPAP: Status: Acute Code(s): G47.33 - Obstructive sleep apnea (adult) (pediatric) (7) Lymphedema: Status: Acute Code(s): I89.0 - Lymphedema, not elsewhere classified (8) Type 2 diabetes mellitus: Status: Acute Code(s): E11.9 - Type 2 diabetes mellitus without complications Qualifiers: Diabetes mellitus complication detail: with polyneuropathy Diabetes mellitus complication status: with neurologic complications Diabetes mellitus intermediate card tender insulin use: without fpc use Qualified Code(s): E11.42 - Type 2diabetes mellitus with diabetic polyneuropathy Medications at Discharge Home Medications B-complex with vitamin C 1 tab PO DAILY 03/03/20 ascorbate calcium (vitamin C) 500 mg tablet 500 mg PO DAILY 03/03/20 calcium carbonate 500 mg calcium (1,250 mg) tablet (Calcium 500) 500 mg PO DAILY03/03/20 cholecalciferol (vitamin D3) 50 mcg (2,000 unit) capsule 50 mcg PO DAILY 03/03/20 diclofenac sodium 50 mg tablet,delayed release 50 mg PO BID 03/03/20 fluticasone propionate 50 mcg/actuation nasal spray,suspension (Flonase Allergy Relief) 1 spray intranasal DAILY 03/03/20 levocetirizine 5 mg tablet (24HR Allergy Relief) 5 mg PO DAILY 03/03/20 olmesartan 40 mg-hydrochlorothiazide 25 mg tablet 1 ea PO DAILY 03/03/20 oxycodone-acetaminophen 7.5 mg-325 mg tablet 1 ea PO Q4H PRN Pain 03/03/20 propranolol 10 mg tablet 10 mg PO DAILY 03/03/20 tizanidine 4 mg tablet 1 ea PO TID PRN Spasms 03/03/20 zinc 50 mg tablet 50 mg PO DAILY 03/03/20 Hospital Course Procedures 2-D Echocardiogram, EKG and - (Foot x-ray/chest x-ray) Summary of Care Provided Minutes Spent on Discharge: 45 Hospital Course: Mr. Elias is a 57-year-old white male who presented to the emergency department at [facility] on 11/15/2022 with worsening bilateral lower extremity redness and edema. Patient reported he had chronic erythema andswelling in both of his legs but he felt that the swelling and erythema had worsened. He reported that he had a fall about 10 days ago at which time he developed worsening swelling in his legs and leakage from bilateral legs. At home, his mother has been helping him dress the wounds. He denied any fever butdid complain of chills and anorexia along with fatigue and generalized weakness. He had been on outpatient course of antibiotics and felt that he was improving for a brief period of time but then progressively got worse. Vital signs on presentation showed a temperature of 97.7, heart rate 80, blood pressure initially was 95/46, respiratory rate was 16-26 and oxygen saturations were 94% on room air. CBC demonstrated a white count of 21,000 with a left shift. His chemistry was markedly abnormal with hyponatremia, hyperkalemia with potassium of 6.6, normal serum bicarb and anion gap however I do suspect his serum bicarb is low for him based on his body habitus and high suspicion for chronic CO2 retention. BUN was 112 and serum creatinine was 5.08. His baseline serum creatinine is between 0.9 and 1.2. His initial lactate was 2.4. His cardiac enzymes were cycled and found to be negative. His BNP was 3.9. MRSA PCR was negative. He was admitted to the ICU and started on broad-spectrum antibiotics after cultures were obtained. Blood cultures resulted quickly positive for Enterococcus faecalis. Wound cultures were polymicrobial. Infectious disease was following the patient and transition him from vancomycin and Zosyn to ampicillin. His blood pressure stabilized without pressure support and his white count had normalized and was 8.5 on the day of discharge. His renal function had trended down to 2.14 and his serum potassium normalized. On the a.m. of 11/17/2022 he reported bilateral lower extremity numbness and decreased ability to move his legs. He stated that he had a fall on Tuesday where he fell on his buttocks while trying to transfer and ambulate and was fine afterwards. On Tuesday evening prior to coming in he was sitting in his wheelchair and his spinal cord felt cramped per his description and he reported that he had progressively worsening symptoms since that point but unfortunately had not mentioned them until this time. At that time and emergent neuro consultation was placed by intensive care and we ordered a stat MRI of the lumbar spine. Teleneurology recommended stat neurosurgery consult. Unfortunately we were unable to get imaging done prior to discharge. I did discuss the case with the neuro critical care team and the orthospine surgeon at [facility] and they accepted him for transfer for evaluation. They were uncertain whether they would be able to do anything surgically as they felt that he was likely a poor candidate overall for any surgical intervention but were willing to evaluate him further for need. MRI will be proceeded with once he gets therefor transfer as they were able to pick him up prior to us being able to perform his MRI prior to discharge. Wounds were noted on his foot and a foot x-ray was performed and podiatry evaluated the patient they did not find any need for ongoing debridement or any signs of osteomyelitis and recommended ongoing antibiotics. He was transferred to [facility] for further evaluation on 11/17/2022. This was discussed with the patient he voiced understanding. Discharge diagnoses: Sepsis Enterococcus bacteremia New onset paraplegia Bilateral lower extremity cellulitis DIVINA Hyperkalemia Lactic acidosis Hypoxia DM-2 Hypertension Osteoarthritis BATOOL Morbid obesity Physical Exam Const alert, oriented x3, no apparent distress and well nourished; Negative for average body habitus Constitutional Narrative: Super morbidly obese white male, sitting up in bed, nursing at bedside, patient appears comfortable and nontoxic, currently on room air General Appearance: cooperative, comfortable, well kempt and well developed Orientation / Consciousness: awake, oriented to person, oriented to place and oriented to time Exam Limitations: no limitations Nutritional Appearance: morbidly obese HEENT normocephalic, head/scalp atraumatic, hearing grossly normal bilaterally and moist oral mucous membranes HEENT Narrative: Mallampati 3-4, no thrush Eyes PERRL, EOMs intact bilaterally and conjunctivae normal Eyes Narrative: No scleral there is Neck no lymphadenopathy and supple Neck Narrative: Trachea midline, no thyroid enlargement, neck is very short and thick Resp normal respiratory effort, no retractions, no use of accessory muscles and clearto auscultation bilaterally Auscultation: Negative for rales, rhonchi or wheezes Cardio regular rate, regular rhythm, S1 normal heart sound, S2 normal heart sound, no murmurs, no rub, no gallops and no clicks GI normal to inspection, nondistended, normoactive bowel sounds, soft to palpation and non-tender GI Narrative: Large protuberant abdomen Extremity Extremity Narrative: Bilateral lower extremities with significant edema and erythema--> erythema is retracting and swelling has slightly improved, no cyanosis or clubbing Skin Skin Narrative: Lower extremities as noted above, has areas of open small wounds and blistering,also patchy erythematous areas consistent with cellulitis Neuro oriented x3, CN's II-XII intact bilaterally, No moves all extremities, No no focal motor deficits and No no sensory deficits noted Neuro Narrative: Patient with significantly decreased sensation bilateral lower extremities with complete paralysis of bilateral lower extremities today Speech: speech normal Psych affect normal Psych Narrative: Very pleasant, appropriate Weight / BMI Weight Weight: 166.1 kg Body Mass Index (BMI) 57.4 ABG / Lab / Microbiology Data 11/17/22 04:55 11/17/22 04:55 Laboratory: Laboratory Results - last 24 hr 11/16/22 16:12: POC Glucose 76 11/16/22 22:30: POC Glucose 91 11/17/22 04:55: WBC 8.5, RBC 3.12 L, Hgb 8.3 L, Hct 27.3 L, MCV 87.5, MCH 26.6 L, MCHC 30.4 L, RDW Std Deviation 47.3 H, RDW Coeff of Mary 14.8 H, Plt Count 283,MPV 9.6, Immature Gran % (Auto) 0.500, Neut % (Auto) 70.5 H, Lymph % (Auto) 15.7L, Hayes % (Auto) 11.9 H, Eos % (Auto) 1.2, Baso % (Auto) 0.2, Absolute Neuts (auto) 6.0, Absolute Lymphs (auto) 1.34, Nucleated RBC % 0, Sodium 137, Potassium 4.9, Chloride 104, Carbon Dioxide 27.0, Anion Gap 6, BUN 100 H, Creatinine 2.14 H, Estim Creat Clear Calc 36.46, Est GFR (MDRD) Af Amer 41 L, Est GFR (MDRD) Non-Af 34 L, BUN/Creatinine Ratio 46.7 H, Glucose 107 H, Calcium 7.8 L, Phosphorus 5.2 H, Magnesium 3.3 H, Total Bilirubin 0.40, AST 53 H, ALT 28, Alkaline Phosphatase 59, Total Protein 5.6 L, Albumin 2.0 L, Globulin 3.6, Albumin/Globulin Ratio 0.6 L, Urine Color Yellow, Urine Clarity Sl. Cloudy, Urine pH 6.0, Ur Specific [place] 1.015, Urine Protein 30 H, Urine Glucose (UA) Normal, Urine Ketones Negative, Urine Occult Blood 250 H, Urine Nitrite Negative, Urine Bilirubin Negative, Urine Urobilinogen Normal, Ur Leukocyte Esterase 500 H, Urine RBC 5-10 SEEN, Urine WBC 25-50 SEEN, Ur Squamous Epith Cells 0 SEEN, Urine Bacteria 2+, Urine Mucus 0 SEEN 11/17/22 07:25: POC Glucose 103 11/17/22 11:44: POC Glucose 115 H Microbiology: Microbiology 11/16/22 12:30 Wound - Left Foot Gram Stain - Final 11/16/22 12:30 Wound - Left Foot Wound Culture - Preliminary GNR Poss Pseudomonas sp Staphylococcus aureus Beta streptococcus 11/15/22 19:27 Blood Culture (Wb) - Left Hand Blood Culture - Final GPC Poss Enterococcus sp 11/15/22 18:35 Blood Culture (Wb) - Left Hand Bacteria Detection (PCR) - Final Enterococcus faecalis 11/15/22 18:35 Blood Culture (Wb) - Left Hand Blood Culture - Preliminary Enterococcus faecalis 11/17/22 04:55 Urine Catheter - Bartlett Legionella Antigen - Final Radiography Diagnostic Testing: Radiology Impression Foot X-Ray 11/16/22 10:09 IMPRESSION: No radiographic evidence of osteomyelitis. Electronically Signed: Rojelio Juarez MD at 13:43 EDT , Meaningful Use Info Meaningful Use Diagnoses (Choose all that apply): None applicable Discharge Plan Admission Admit Date/Time: 11/15/22 20:32 Primary Reason for Your Visit: Bilateral lower extremity redness Attending Provider: Vanessa Matias Primary Care Provider: Peter Thayer Consulting Providers: Florencio Greenfield; Michele Montes; Minda Cm; Carlos Lacy; Alexei Marley Discharge Orders/Prescriptions Prescriptions: No Action oxycodone-acetaminophen 7.5-325 mg tablet 1 ea PO Q4H PRN (Reason: Pain) Patient Comments: ONE TABLET BY MOUTH EVERY 4 HOURS NEEDED FOR SEVERE PAIN diclofenac sodium 50 mg tablet,delayed release (DR/EC) 50 mg PO BID olmesartan-hydrochlorothiazide 40-25 mg tablet 1 ea PO DAILY Patient Comments: TAKE 1 TABLET BY MOUTH EVERY DAY tizanidine 4 mg tablet 1 ea PO TID PRN (Reason: Spasms) Patient Comments: 1 TABLET ORALLY 3 TIMES PER DAY NEEDED FOR MUSCLE SPASM/BACK PAIN propranolol 10 mg tablet 10 mg PO DAILY B-complex with vitamin C Tablet 1 tab PO DAILY cholecalciferol (vitamin D3) 50 mcg (2,000 unit) capsule 50 mcg PO DAILY ascorbate calcium (vitamin C) 500 mg tablet 500 mg PO DAILY zinc 50 mg tablet 50 mg PO DAILY calcium carbonate [Calcium 500] 500 mg calcium (1,250 mg) tablet 500 mg PO DAILY fluticasone propionate [Flonase Allergy Relief] 50 mcg/actuation spray,suspension 1 spray INTRANASAL DAILY Rx Instructions: administer into each nostril levocetirizine [24HR Allergy Relief] 5 mg tablet 5 mg PO DAILY Referrals / Follow Up: Peter Thayer DO [Primary Care Provider] - Disposition Disposition (needs filled in before D/C Order can be placed): Acute Care Hospital Charges/Coding Visit Charges Inpatient E&M: 07911 Disch Hosp >30min 11/17/22 1403 <Electronically signed by Vanessa Matias DO> Cosigner Signature (if applicable): CC: Dr. Vanessa Matias DO; Dr. Peter Thayer DO~ Signed [facility] Work Phone: Discharge summary Author Srinivasa Salvador [facility] Note Date/Time October 12, 2024 8:48a m [facility] Medical Records Department [address] [place] [address] Emergency Department Summary 10/12/24 MR#: [id number] Acct: [id number] Name: MELISSA ELIAS Rep #:[id number] : 1965 59 From: Srinivasa Salvador MD PCP: Dr. Rocio Bartlett MD Status:R EG ER Location: ED HPI History of Present Illness Chief Complaint: Shortness of Breath Informant: patient and EMS Narrative Narrative: 59-year-old male brought in by EMS just after 7 AM for hypoxemia. He has been treated at local alf for pneumonia for about the past 2 or 3 weeks according to the patient, he states he is about done with antibiotics, accordingto his medication list he currently is on azithromycin and Augmentin. No history of chronic lung disease or chronic heart disease except for pulmonary emboli for which he is currently on a apixaban. EMS states that he was 60% on room air at the alf and that about 4 hours ago so they put him on high flow but he was still apparently hypoxic. After seeing the patient, our nurse spoke with the alf nurse, who states he was never on room air; he is on3 L of oxygen even before he had pneumonia, and was on this last night when his oxygen saturations went down to the 80% range so the night nurse turned him up to 5 L but was unable to get his oxygen saturations beyond the 70-80% range. Was in the 60-70% range at 1 point in time. She offered to have the patient go to the ER but he refused because he has a wound care appointment this morning and did not want to miss it, but the morning 7 AM nurse came in and put him on anonrebreather and told the patient since he is a full code and very hypoxic/dyspneic, he would need to be sent to the ER and wound care would not likely be able to care for him anyway. He states he really has not felt that much more dyspneic this morning than he had, maybe a little more, and some mild chest tightness. He has been coughing and has had rhonchorous breathing for maybe the last week. Apparently the patient is in [facility] because he had a spinal surgery thatended up having infection of hardware and osteomyelitis, this led to other surgeries, paraplegia, postoperative complications including pneumonia, pulmonary emboli, sacral decubitus ulcer along with osteomyelitis of the sacrum. This was all within the past 8 years with the majority of the complications in the past 2 years. [facility] Medical History VRE (vancomycin resistant enterococcus) culture positive Decubitus ulcer of sacral region, stage 4 Lymphedema BATOOL treated with BiPAP Abscess of back Constipation Pressure ulcer of sacral region Chronic indwelling Bartlett catheter Blood loss anemia Clot retention of urine Pressure injury, unstageable, with eschar Bilateral pulmonary embolism Rhabdomyolysis Community acquired pneumonia Hypoglycemia Acute osteomyelitis of spine Former tobacco use Paraplegia Cellulitis of leg without foot, right Anemia BMI greater than 40 Type 2 diabetes mellitus HTN (hypertension) H/o back surgery Home Medications ?Medication ?Instructions ?Recorded ?Last Taken ?Type fluticasone propionate 50 1 spray intranasal DAILY haim rtness 03/03/20 Unknown History mcg/actuation nasal of breath spray,suspension (Flonase Allergy Relief) apixaban 5 mg tablet (Eliquis) 5 mg PO BID 07/29/23 History methocarbamol 500 mg tablet 1,000 mg PO TID PRN cramps 07/29/23 08/31/23 History polyethylene glycol 3350 17 17 g PO DAILY PRN constipa tion 07/29/23 07/29/23 History gram/dose oral powder (ClearLax) pantoprazole 40 mg tablet,delayed 40 mg PO DAILY 08/3008/31/23 History release aluminum-mag hydroxide-simethicone 30 ml PO Q6H PRN AK N Gastric 09/13/23 Unknown Rx 400 mg-400 mg-40 mg/5 mL oral susp Burning #0 mL (Mag-Al Plus Extra Strength) amlodipine 10 mg tablet 10 mg PO DAILY #0 tabs 09/12 Unknown Rx carvedilol 12.5 mg tablet 12.5 mg PO BIDCM #0 tabs Unknown Rx diphenhydramine HCl 25 mg capsule 25 mg PO TID PRN PRN Itching #0 09/13/23 Unknown Rx (Banophen) caps peg [id number] 1 1 drp EACH EYE BID #0 mL 09/13/23 Unknown Rx %-0.2 %-0.2 % eye drops (Artificial Tears ([id number])) polysaccharide iron complex 150 mg 150 mg PO DAILY 06/08 Unknown History iron capsule (Ferrex) sennosides 8.6 mg-docusate sodium 2 tab PO BID Constip ation 10/15/23 Unknown History 50 mg tablet (Stool Softener-Stimulant Laxative) insulin lispro 100 unit/mL See Protocol subcut ACHS Unknown History subcutaneous pen (Humalog KwikPen (U-100) Insulin) loratadine 10 mg tablet 10 mg PO DAILY 10/23/23 Unkn own History (Allerclear) albuterol sulfate 2.5 mg/3 mL 2.5 mg inhalation BID Unknown History (0.083 %) solution for nebulization acetaminophen 500 mg tablet 1,000 mg PO TID PRN pain 0 02/09/24 Unknown History furosemide 20 mg tablet 20 mg PO DAILY 02/09/24 Unkn own History arginine 7 gram-glutamine 7 1 ea PO BID 03/22/24 Unkno wn History gram-calcium HMB 1.5 gram oral powder pack (Wiliam) amino acids-protein hydrolysate 15 30 ml PO BID Unknown History gram-100 kcal/30 mL oral liquid (Pro-Stat Sugar Free) ascorbic acid (vitamin C) 500 mg 500 mg PO QDAY Unknown History tablet chlorhexidine gluconate 4 % 1 applic topical .twice a week 03/26/24 Unknown History topical liquid (Hibiclens) dextrose 40 % oral gel (Glucose 10 g PO Q15M 03/26/24 Unknown History Gel) naloxone 0.4 mg/mL injection 0.4 mg IM Q5M PRN opioid reversal 03/26/24 Unknown History syringe ondansetron 4 mg disintegrating 4 mg PO Q4H PRN nausea 03/26/24 Unknown History tablet sodium chloride 0.65 % nasal mist 2 spray intranasal Q 2H PRN dry 03/26/24 Unknown History nasal passages dulaglutide 3 mg/0.5 mL 3 mg subcut QWEEK 07/18/24 U nknown History subcutaneous pen injector (Trulicity) duloxetine 30 mg capsule,delayed 60 mg PO QDAY 5 Unknown History release insulin glargine 100 unit/mL 10 unit subcut DAILY diab etes 07/18/24 Unknown History subcutaneous solution (Lantus mellitus type 2 U-100 Insulin) insulin lispro 100 unit/mL 6 unit subcut TID 07/18/24 Unknown History subcutaneous solution metformin 500 mg tablet 1,000 mg PO QDAY 07/18/24 Un known History fenofibrate 54 mg tablet 54 mg PO DAILY 08/17/24 Unkn own History lorazepam 1 mg tablet 1 mg PO DAILY PRN anxiety Unknown History nystatin 100,000 unit/gram topical topical 08/17/24 Un known History powder cefdinir 300 mg capsule 300 mg PO BID #20 caps 09/07 Unknown Rx metronidazole 500 mg tablet 500 mg PO BID #20 tabs Unknown Rx oxycodone 10 mg tablet 10 mg PO .QID pain 30 days # 120 10/09/24 Unknown Rx tabs morphine 30 mg capsule,extended 30 mg PO Q12H 30 days #60 caps 10/10/24 Unknown Rx release pellets ([place]) Allergy/AdvReac Type Severity Reaction Status Date / Time No Known Allergies Allergy Verified 10/12/24 07:34 Family History Mother Hypertension Hypotension Diabetes Arthritis Father Hypertension Hypotension Heart disease Status post double vessel coronary artery bypass angina Arthritis Grandfather Prostate cancer Grandmother Uterine cancer Surgical History History of hip replacement Colostomy status Hx of spinal surgery H/O sinus surgery Social History housing: alf current occupational status: employed and retired Smoking Status: Former smoker alcohol intake: never substance use type: does not use do you feel safe at home: Yes ROS ROS ED Constitutional Constitutional ED: Reports weakness; Denies chills or fever(s) Eyes Eyes: Denies change in vision or diplopia ENT ENT ED: Denies rhinorrhea or sore throat Cardiovascular Cardiovascular: Reports chest pain, fatigue and other Details: Chronic bilaterallower extremity edema unchanged ; Denies palpitations, radiating jaw, neck or arm pain or syncope Respiratory/Chest Respiratory/Chest: Reports chest tightness, cough and dyspnea Gastrointestinal Gastrointestinal: Denies abdominal pain, diarrhea, nausea or vomiting Genitourinary Genitourinary ED: Denies dysuria or hematuria Musculoskeletal Musculoskeletal: Denies myalgias or neck pain Integumentary Denies abscess or rash Neurologic Neurologic: Reports paresthesias and weakness; Denies headache(s) Psychiatric Psychiatric: Denies anxiety or suicidal thoughts EXAM Physical Exam Const Vital Signs: 10/12/24 07:28 10/12/24 07:34 10/12/24 07:59 Temperature 98.1 F 98.1 F Temperature Source Axillary Axillary Pulse Rate 103 H 103 H Respiratory Rate 18 18 Respiratory Effort Respiratory Depth Respiratory Pattern Blood Pressure 148/76 H 148/76 H Blood Pressure Mean 100 100 Pulse Ox 98 98 Oxygen Delivery Method Non-Rebreather Non-Rebreather Non-Rebreather Oxygen Flow Rate (L/min) 15 15 15 10/12/24 07:59 Temperature Temperature Source Pulse Rate Respiratory Rate Respiratory Effort Normal Non-Labored Respiratory Depth Normal Respiratory Pattern Normal Blood Pressure Blood Pressure Mean Pulse Ox Oxygen Delivery Method Oxygen Flow Rate (L/min) Positive well nourished, well developed and obese General Appearance ED: well developed and NAD Nutritional Appearance: obese HEENT Reports moist mucous membranes normocephalic and atraumatic Eyes PERRL and EOMs intact bilaterally Neck full ROM, supple and no JVD Resp normal respiratory effort Resp Narrative: Rhonchorous breath sounds throughout, clearly audible externally without stethoscope suggesting upper airway etiology. Cardio regular rate, regular rhythm and no murmurs Cardio Narrative: Mildly tachycardic low 100s GI non-tender and non-distended GI Narrative: Colostomy left lower quadrant, there is some herniation of the mucosa but it is otherwise benign and outputting nonbloody stool Auscultation: normoactive bowel sounds Palpation: soft Back/Spine no CVA tenderness General Back: other FROM Extremity normal to inspection General Extremety ED: Yes edema; Negative for pulses abnormal or tenderness General Extremity: edema bilateral lower extremity Details: moderate (With changes of chronic stasis dermatitis both lower legs, no tenderness.); Negative for pulses abnormal Neuro oriented x3 and CN's II-XII intact bilaterally Sensorium / Orientation: awake and alert Psych mental status grossly normal Skin no rashes or lesions noted and no wounds MDM MDM MDM Narrative Medical decision making narrative: Although patient sounds rhonchorous/wet, he is breathing well did not require breathing treatment. Will be chest x-ray my interpretation is ambiguous; appears to have some fluid in both bases, and possibly the fissure indicating pleural effusion on the right, so this looks like congestion/CHF but his proBNP is only 158 which is extremely low arguing against acute decompensated congestive heart failure, and this is more likely to be either third spacing, infection, or both. His white blood count is only 8.4. Etiology is unknown butit is increasing his oxygen requirement. Respiratory was able to wean him down to high flow at 10 L he is currently 95- 98%, he denies having any chest discomfort right now. His initial troponin is nonspecifically elevated at 107, his EKG shows a stable right bundle branch block without signs of acute ischemia/injury, will admit for further testing and treatment. He is on a apixaban already so I did not think he needed emergent PE testing. His anemia is chronic and stable. He does have third spacing in his body from being immobile, this could be related. Also in the differential is failure of outpatient therapy of his pneumonia, also possibly primary cardiac such as acutecoronary syndrome although he is having no chest discomfort right now. History & Record Review Additional record(s) reviewed:: Prior outpatient record (Wound care visit 2 weeks ago) Lab Data Attestation: I reviewed the patient's lab results. Labs: Laboratory Results - last 24 hr 10/12/24 07:56 WBC 8.4 RBC 4.24 L Hgb 9.7 L Hct 34.8 L MCV 82.1 MCH 22.9 L MCHC 27.9 L RDW Std Deviation 52.8 H RDW Coeff of Mary 17.6 H Plt Count 287 MPV 9.5 Immature Gran % (Auto) 1.300 H Neut % (Auto) 66.3 Lymph % (Auto) 17.5 L Hayes % (Auto) 11.2 H Eos % (Auto) 3.2 Baso % (Auto) 0.5 Absolute Neuts (auto) 5.6 Absolute Lymphs (auto) 1.47 Nucleated RBC % 0 Sodium 133 Potassium 4.8 Chloride 93 L Carbon Dioxide 31.3 Anion Gap 9 BUN 20 H Creatinine 0.59 L Estim Creat Clear Calc 208.01 Est GFR (MDRD) Non-Af 113 BUN/Creatinine Ratio 34.0 H Glucose 175 H Lactic Acid < 1.0 Calcium 8.7 Troponin T High Sens 107 H* NT pro BNP II 158 Radiography Diagnostic Testing: Clinical Impression(s) from Imaging Studies Chest X-Ray 10/12/24 08:00 IMPRESSION: Mild degree of vascular congestion with bibasilar atelectasis and small bilateral effusions slightly more prominent on the right side. Reading Location: [place] [address] Rhythm Strip Rhythm Strip: Sinus Tach Rate: 103 Ectopy: None EKG Initial EKG: Attestation: I personally reviewed and interpreted this EKG as follows: Interpretation: No Acute Injury Pattern, Sinus Tachycardia and RBBB Prior EKG tracings: available for review Prior: Unchanged (2023) Management Discussion w/another healthcare provider: Hospitalist Discharge Plan Dx/Rx/DC Orders Clinical Impression: Acute hypoxic respiratory failure, Elevated troponin, Chest pain Disposition Disposition: Acute Care Hospital [facility] What to do if you have Problems For any increased pain, shortness of breath, bleeding, nausea or vomiting, chestpain, or any unexpected problems, contact your Primary Care Provider. Call [facility] ([phone]) or report to the closest Emergency Room. Call 911 if necessary. 10/12/24 0848 <Electronically signed by Srinivasa Salvador MD> Cosigner Signature (if applicable): CC: Dr. Rocio Bartlett MD ~ Signed [facility] Work Phone: Evaluation + Plan note No data available for this section [facility] Evaluation note* Diagnosis Onset Date Resolution Status Acute hyperkalemia acute Acute renal failure acute Bilateral cellulitis of lower leg acute BMI greater than 40 acute Hypoxia acute Type 2 diabetes mellitus acu [facility] Work Phone: Evaluation note* Diagnosis Onset Date Resolution Status Acute hyperkalemia acute Acute renal failure acute Anemia acute Cellulitis of leg without foot, left acute Cellulitis of leg without foot, right acute Hypoxia acute Injury to L1 level of spinal cord acute Lactic acidosis acute Leukocytosis acute Lower extremity cellulitis a cute Lymphedema acute BATOOL treated with BiPAP acute Paraplegia acute Sepsis acute Sepsis due to Enterobacter a cute Septic shock due to Gram positive bacteria acute Type 2 diabetes mellitus acu [facility] Work Phone: Evaluation note* Diagnosis Bacteremia due to Enterococcus- Primary Bacteremia documented in this encounter [facility]* Diagnosis Onset Date Resolution Status Acute hyperkalemia acute Acute renal failure acute Cellulitis of leg without foot, left acute Cellulitis of leg without foot, right acute Hypoxia acute Leukocytosis acute Lower extremity cellulitis a cute Sepsis acute Sepsis due to Enterobacter a cute Type 2 diabetes mellitus acu te Lactic acidosis resolved Acute osteomyelitis of spine acute Bilateral pulmonary embolism acute Cellulitis of leg without foot, left acute Cellulitis of leg without foot, right acute Community acquired pneumonia acute Hypoglycemia acute Hypoxia acute Pressure injury, unstageable, with eschar acute Rhabdomyolysis acute Sepsis acute [facility] Work Phone: Evaluation note* Diagnosis S/P colostomy (HCC)- Primary Colostomy status Pressure injury of sacral region, stage 4 (HCC) Morbid obesity (HCC) Morbid obesity Paraplegia (HCC) Paraplegia documented in this encounter [facility] noteNo assessment information [facility] Work Phone: Evaluation note* Diagnosis Onset Date Resolution Status Acute urinary retention acut e Chronic anticoagulation acut e Gross hematuria acute History of deep vein thrombosis acute History of diabetes mellitus acute History of paraplegia acute Chronic anemia [facility] Work Phone: Evaluation note* Diagnosis Onset Date Resolution Status Acute urinary retention acut e Blood loss anemia acute Chronic anticoagulation acut e Clot retention of urine acut e Gross hematuria acute History of deep vein thrombosis acute History of diabetes mellitus acute History of paraplegia acute Chronic anemia chronic Chronic indwelling Bartlett catheter [facility] Work Phone: Evaluation note* Diagnosis Chronic indwelling Bartlett catheter- Primary Other postprocedural status Wound of sacral region, sequela Paraplegia (HCC) Paraplegia documented in this encounter [facility] note* Diagnosis Pneumonia, bacterial- Primary Unspecified bacterial pneumonia Pneumonia, bacterial Unspecified bacterial pneumonia [facility] (current) use of antibiotics UTI due to extended-spectrum beta lactamase (ESBL) producing Escherichia coli Pressure injury of contiguous region involving back, buttock, and hip, stage 4, unspecified laterality ([facility]) documented in this encounter [facility] note* Diagnosis Paraplegia ([facility])- Primary Paraplegia Urinary retention Retention of urine, unspecified documented in this encounter [facility] note* Diagnosis Paraplegia (HCC)- Primary Paraplegia Urinary retention Retention of urine, unspecified documented in this encounter [facility] note* Diagnosis Chronic indwelling Bartlett catheter- Primary Other postprocedural status documented in this encounter [facility] note* Diagnosis Sacral decubitus ulcer, stage IV ([facility])- Primary documented in this encounter [facility] note* Diagnosis Paralysis ([facility])- Primary Paralysis, unspecified Traumatic edema of thoracic spinal cord ([facility]) Bacteremia Paraplegia ([facility]) Paraplegia Spondylolisthesis, 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 carrier of Methicillin susceptible Staphylococcus aureus Bacteremia Acute respiratory failure with hypoxia and hypercapnia ([facility]) HAP (hospital-acquired pneumonia) Pneumonia, organism unspecified Venous stasis ulcer of left lower extremity (HCC) Venous stasis ulcer of right lower extremity ([facility]) Intertriginous dermatitis associated with moisture Dry skin Other specified disease of sebaceous glands Pleural effusion Unspecified pleural effusion Acute pulmonary edema (HCC) Acute edema of lung, unspecified Mucoid impaction of bronchi Other diseases of trachea and bronchus Aspiration pneumonitis ([facility]) Pneumonitis due to inhalation of food or vomitus Acute respiratory failure with hypoxia (HCC) Acute respiratory failure On deep vein thrombosis (DVT) prophylaxis BMI 50.0-59.9, adult (HCC) Body Mass Index 50.0-59.9, adult Pleural effusion on right Unspecified pleural effusion Fall Unspecified fall Pressure injury of buttock, unstageable ([facility])- Primary Decubitus ulcer of sacral region Pressure ulcer, lower back Sacral wound Injury, other and unspecified, other specified sites, including multiple Paralysis (HCC) Paralysis, unspecified Anticoagulation management encounter Encounter for therapeutic drug monitoring Bilateral pulmonary embolism (HCC) Other pulmonary embolism and infarction Controlled type 2 diabetes mellitus without complication (HCC) Type II or unspecified type diabetes mellitus without mention of complication, not stated as uncontrolled Non-traumatic rhabdomyolysis Elevated troponin Other abnormal blood chemistry Pressure injury of right buttock, stage 4 (HCC) Iron deficiency anemia Iron deficiency anemia, unspecified Pressure injury of left heel, unstageable (HCC) Pressure injury of right leg, stage 3 (HCC) Pressure injury of left leg, stage 3 (HCC) Paraplegia (HCC) Paraplegia Obesity, Class III, BMI >= 40 (morbid obesity) E66.01 Morbid obesity Hypertension Unspecified essential hypertension Spinal stenosis Spinal stenosis, unspecified region other than cervical Pressure injury of skin of sacral region Type 2 diabetes mellitus with hyperglycemia (HCC) Type II or unspecified type diabetes mellitus without mention of complication, not stated as uncontrolled Impaired mobility Other ill-defined conditions Morbid obesity (HCC) Morbid obesity Cellulitis Cellulitis and abscess of unspecified site BATOOL (obstructive sleep apnea) Obstructive sleep apnea (adult) (pediatric) NSTEMI (non-ST elevated myocardial infarction) (HCC) Acute myocardial infarction, subendocardial infarction, episode of care unspecified Tremors of nervous system Abnormal involuntary movements Klebsiella pneumoniae infection Klebsiella pneumoniae Insulin dose changed (HCC) Alteration in skin integrity due to moisture Other symptoms involving skin and integumentary tissues Suprapubic catheter (HCC)- Primary Other cystostomy status Paraplegia (HCC) Paraplegia Urinary retention Retention of urine, unspecified Wound of sacral region, sequela [facility] Diagnosis Decubitus ulcer of sacral region, stage 3 (HCC)- Primary documented in this encounter [facility] note* Diagnosis Decubitus ulcer of sacral region, stage 3 (HCC)- Primary documented in this encounter [facility] Discharge instructions No data available for this section [facility] Progress note No data available for this section [facility] Reason for referral (narrative)[facility] Reason for visit Narrative* Imaging (Routine) - Closed Specialty Diagnoses / Procedures Referred By Contjosh t Referred To Contact Radiology Diagnoses Sacral decubitus ulcer, stage IV (HCC) Procedures MR pelvis w and wo contrast Lenard Ling MD [address] [place] [address] Phone: tel: fax: Referral ID Status Reason Start Date Expiration Date Visits Re quested Visits Authorized [id number] Closed 02/29/2024 02/28/2025 1 1 [facility] Summary Purpose Family History No Family History Records Found Relationship Condition Age at Onset Recorded Date/T jimmy mother Hypertension Unknown Hypotension Unknown Diabetes mellitus Unknown Arthritis Unknown father Hypertension Unknown Cardiac disease Unknown Status post double v essel coronary artery bypass Unknown Unknown grandfather Malignant neoplasm of prostate Unknown grandmother Malignant neoplasm of uterus Unknown Advance Directives No Advanced Directives Records Found Advance Directive Response Recorded Date/ Time Living Will No November 15, 2022 6 :14pm Power of Preparer Samples And Repairs No November 15, 2022 6:14pm Advance Directive Response Recorded Date/ Time Living Will No November 15, 2022 8 :56pm Power of Preparer Samples And Repairs No November 15, 2022 8:56pm Latest Code Status on File Code Status Date Activated Date Inactivated Comments Full Code 12/05/2022 12:41 PM 12/14/2022 9:37 PM Question Answer Comments Full Code Order Discussed With: Patient Advance Directive Response Recorded Date/ Time Name of Medical Power of Preparer Samples And Repairs Marci Blanco taylor February 01, 2023 11:16am Living Will No February 01, 2023 7:07pm Power of Preparer Samples And Repairs No January 7:07pm Latest Code Status on File Code Status Date Activated Date Inactivated Comments Full Code 02/07/2023 7:31 AM Question Answer Comments Full Code Order Discussed With: Patient Code Status History Code Status Date Activated Date Inactivated Comments Full Code 12/05/2022 12:41 PM 12/14/2022 9:37 PM Question Answer Comments Full Code Order Discussed With: Patient Latest Code Status on File Code Status Date Activated Date Inactivated Comments Full Code 02/07/2023 7:31 AM 03/08/2023 7:43 PM Question Answer Comments Full Code Order Discussed With: Patient Latest Code Status on File Code Status Date Activated Date Inactivated Comments Full Code 02/07/2023 7:31 AM 03/08/2023 7:43 PM Question Answer Comments Full Code Order Discussed With: Patient Code Status History Code Status Date Activated Date Inactivated Comments Full Code 12/05/2022 12:41 PM 12/14/2022 9:37 PM Question Answer Comments Full Code Order Discussed With: Patient Advance Directive Response Recorded Date/ Time Living Will No February 01, 2023 6:07pm Power of Preparer Samples And Repairs No January 6:07pm Advance Directive Response Recorded Date/ Time Living Will No July 29, 2023 5:34pm Power of Preparer Samples And Repairs No July 28 5:34pm Advance Directive Response Recorded Date/ Time Living Will No August 31, 2023 11:11am Power of Preparer Samples And Repairs No August 30 11:11am Advance Directive Response Recorded Date/ Time Living Will No August 31, 2023 9:27pm Power of Preparer Samples And Repairs No August 30 9:27pm Date Activated Date Inactivated Comments 02/07/2023 7:31 AM 03/08/2023 7:43 PM Question Answer Comments Full Code Order Discussed With: Patient Date Activated Date Inactivated Comments 12/05/2022 12:41 PM 12/14/2022 9:37 PM Question Answer Comments Full Code Order Discussed With: Patient Date Activated Date Inactivated Comments 10/27/2023 10:04 PM 11/04/2023 9:01 PM Date Activated Date Inactivated Comments 10/27/2023 10:04 PM 11/04/2023 9:01 PM Advance Directive Response Recorded Date/ Time Do you have a Healthcare Power of Preparer Samples And Repairs? No October 12, 2024 7:34am Advance Directive Response Recorded Date/ Time Do you have a Healthcare Power of Preparer Samples And Repairs? No October 12, 2024 9:43am Advance Directive Response Recorded Date/ Time Do you have a Healthcare Power of Preparer Samples And Repairs? No October 29, 2024 10:28am Do you have a Healthcare Power of Preparer Samples And Repairs? No October 12, 2024 9:43am Advance Directive Response Recorded Date/ Time Do you have a Healthcare Power of Preparer Samples And Repairs? No October 29, 2024 3:46pm Do you have a Healthcare Power of Preparer Samples And Repairs? No October 12, 2024 9:43am Chief Complaint and Reason for Visit Chief Complaint CELLULITIS, ARF, HYP OXIA, HYPERKALEMIA Reason for Visit Acute hyperkalemia Acute renal failure Bilateral cellulitis of lower leg BMI greater than 40 Hypoxia Type 2 diabetes mellitus Chief Complaint SEPSIS SECONDARY TO BILATERAL CELLULITIS SEPSIS SECONDARY TO BILATERAL CELLULITIS SEPSIS SECONDARY TO BILATERAL CELLULITIS SEPSIS SECONDARY TO BILATERAL CELLULITIS SEPSIS SECONDARY TO BILATERAL CELLULITIS Reason for Visit Acute hyperkalemia Acute renal failure Anemia Cellulitis of leg without foot, left Cellulitis of leg without foot, right Hypoxia Injury to L1 level of spinal cord Lactic acidosis Leukocytosis Lower extremity cellulitis Lymphedema BATOOL treated with BiPAP Paraplegia Sepsis Sepsis due to Enterobacter Septic shock due to Gram positive bacteria Type 2 diabetes mellitus Chief Complaint SEPSIS SECONDARY TO BILATERAL CELLULITIS SEPSIS SECONDARY TO BILATERAL CELLULITIS SEPSIS SECONDARY TO BILATERAL CELLULITIS SEPSIS SECONDARY TO BILATERAL CELLULITIS SEPSIS SECONDARY TO BILATERAL CELLULITIS HYPOXIA, RLL PNA, BL PE, NSTEMI, RHABDO, HYPOGLYCE HYPOXIA, RLL PNA, BL PE, NSTEMI, RHABDO, HYPOGLYCE HYPOXIA, RLL PNA, BL PE, NSTEMI, RHABDO, HYPOGLYCE HYPOXIA, RLL PNA, BL PE, NSTEMI, RHABDO, HYPOGLYCE HYPOXIA, RLL PNA, BL PE, NSTEMI, RHABDO, HYPOGLYCE HYPOXIA, RLL PNA, BL PE, NSTEMI, RHABDO, HYPOGLYCE Reason for Visit Acute hyperkalemia Acute renal failure Cellulitis of leg without foot, left Cellulitis of leg without foot, right Hypoxia Leukocytosis Lower extremity cellulitis Sepsis Sepsis due to Enterobacter Type 2 diabetes mellitus Lactic acidosis Acute osteomyelitis of spine Bilateral pulmonary embolism Cellulitis of leg without foot, left Cellulitis of leg without foot, right Community acquired pneumonia Hypoglycemia Hypoxia Pressure injury, unstageable, with eschar Rhabdomyolysis Sepsis Chief Complaint wound Chief Complaint wound LAB WORK OBSTRUCTIVE UROPATHY, HEMATURIA Reason for Visit Acute urinary retent ion Chronic anticoagulation Gross hematuria History of deep vein thrombosis History of diabetes mellitus History of paraplegia Chronic anemia Chief Complaint wound ADMISSION EXAM LAB WORK ADMISSION EXAM LABWORK LABWORK LABWORK LAB WORK OBSTRUCTIVE UROPATHY, HEMATURIA OBSTRUCTIVE UROPATHY, HEMATURIA OBSTRUCTIVE UROPATHY, HEMATURIA OBSTRUCTIVE UROPATHY, HEMATURIA OBSTRUCTIVE UROPATHY, HEMATURIA OBSTRUCTIVE UROPATHY, HEMATURIA OBSTRUCTIVE UROPATHY, HEMATURIA OBSTRUCTIVE UROPATHY, HEMATURIA OBSTRUCTIVE UROPATHY, HEMATURIA OBSTRUCTIVE UROPATHY, HEMATURIA OBSTRUCTIVE UROPATHY, HEMATURIA OBSTRUCTIVE UROPATHY, HEMATURIA OBSTRUCTIVE UROPATHY, HEMATURIA OBSTRUCTIVE UROPATHY, HEMATURIA Reason for Visit Acute urinary retent ion Blood loss anemia Chronic anticoagulation Clot retention of urine Gross hematuria History of deep vein thrombosis History of diabetes mellitus History of paraplegia Chronic anemia Chronic indwelling Bartlett catheter Chief Complaint Admit Date [facility] LAB WORK May 18, 2024 5:00am [facility] LAB WORK May 21, 2024 5:00am LABWORK May 28, 2024 6 :20am MONTHLY EXAM May 29, 2024 1 0:41pm NEW CONCERN June 07, 2024 3 :59pm MED ONC June 12, 2024 1 :00pm [facility] LAB WORK June 18, 2024 5:00am [facility] LAB WORK June 19, 2024 5:00am LABWORK June 25, 2024 5:00am MONTHLY EXAM June 26, 2024 3:36pm [facility] LAB WORK July 02 5:00am MONTHLY EXAM July 06, 2024 5:47pm LABWORK July 09, 2024 5:00am NEW CONCERN July 09, 2024 2:36pm NEW CONCERN July 10, 2024 3:07pm [facility] LAB WORK July 11 2:30am NEW CONCERN July 12, 2024 3:50pm LABWORK July 16, 2024 5:00 am ABSCESS ON LEG July 18, 2024 8:42 am LABWORK July 23, 2024 5:0 0am NEW CONCERN July 23, 2024 4:4 7pm MONTHLY EXAM July 24, 2024 5:3 9pm [facility] LAB WORK July 26, 2024 5 :00am LABWORK July 30, 2024 5:0 0am LABWORK August 06, 2024 5:0 0am [facility] LAB WORK August 13, 2024 5 :00am NEW CONCERN August 13, 2024 4:4 8pm [facility] LAB WORK August 20, 2024 4: 00am LABWORK August 27, 2024 5:0 0am WOUND September 07, 2024 9:3 0am WOUND September 14, 2024 8:46am Reason for Visit Admit Date Abscess of back July 18, 2024 8:42 am Chronic anticoagulation September 07, 2024 9:30am Colostomy status September 07, 2024 9:3 0am Decubitus ulcer of left perineal ischial region, stage 2 September 07, 2024 9:30am Decubitus ulcer of right ischium, stage 3 September 07, 2024 9:30am Decubitus ulcer of sacral region, stage 4 September 07, 2024 9:30am History of deep vein thrombosis September 072024 9:30am History of paraplegia September 07, 2024 9 :30am Hx of spinal surgery September 07, 2024 9: 30am Hypoxia September 07, 2024 9:3 0am Lymphedema September 07, 2024 9:3 0am BATOOL treated with BiPAP September 07, 2024 9:30am Type 2 diabetes mellitus September 07 9:30am Chronic indwelling Bartlett catheter September 07, 2024 9:30am Chronic pain September 07, 2024 9:3 0am HTN (hypertension) September 07, 2024 9:3 0am Chief Complaint Admit Date LABWORK May 28, 2024 6 :20am MONTHLY EXAM May 29, 2024 1 0:41pm NEW CONCERN June 07, 2024 3 :59pm MED ONC June 12, 2024 1 :00pm [facility] LAB WORK June 18, 2024 5:00am [facility] LAB WORK June 19, 2024 5:00am LABWORK June 25, 2024 5:00am MONTHLY EXAM June 26, 2024 3:36pm [facility] LAB WORK July 02 5:00am MONTHLY EXAM July 06, 2024 5:47pm LABWORK July 09, 2024 5:00am NEW CONCERN July 09, 2024 2:36pm NEW CONCERN July 10, 2024 3:07pm [facility] LAB WORK July 11 2:30am NEW CONCERN July 12, 2024 3:50pm LABWORK July 16, 2024 5:00 am ABSCESS ON LEG July 18, 2024 8:42 am LABWORK July 23, 2024 5:0 0am NEW CONCERN July 23, 2024 4:4 7pm MONTHLY EXAM July 24, 2024 5:3 9pm [facility] LAB WORK July 26, 2024 5 :00am LABWORK July 30, 2024 5:0 0am LABWORK August 06, 2024 5:0 0am [facility] LAB WORK August 13, 2024 5 :00am NEW CONCERN August 13, 2024 4:4 8pm [facility] LAB WORK August 20, 2024 4: 00am LABWORK August 27, 2024 5:0 0am LABWORK September 03, 2024 5:0 0am WOUND September 07, 2024 9:3 0am WOUND September 21, 2024 9:00am Reason for Visit Admit Date Abscess of back July 18, 2024 8:42 am Chronic anticoagulation September 07, 2024 9:30am Colostomy status September 07, 2024 9:3 0am Decubitus ulcer of left perineal ischial region, stage 2 September 07, 2024 9:30am Decubitus ulcer of right ischium, stage 3 September 07, 2024 9:30am Decubitus ulcer of sacral region, stage 4 September 07, 2024 9:30am History of deep vein thrombosis September 072024 9:30am History of paraplegia September 07, 2024 9 :30am Hx of spinal surgery September 07, 2024 9: 30am Hypoxia September 07, 2024 9:3 0am Lymphedema September 07, 2024 9:3 0am BATOOL treated with BiPAP September 07, 2024 9:30am Type 2 diabetes mellitus September 07 9:30am Chronic indwelling Bartlett catheter September 07, 2024 9:30am Chronic pain September 07, 2024 9:3 0am HTN (hypertension) September 07, 2024 9:3 0am Chronic anticoagulation September 21, 2024 9: 00am Colostomy status September 21, 2024 9:00am Decubitus ulcer of left perineal ischial region, stage 2 September 21, 2024 9:00am Decubitus ulcer of right ischium, stage 3 September 21, 2024 9:00am Decubitus ulcer of sacral region, stage 4 September 21, 2024 9:00am History of deep vein thrombosis September 21, 2024 9:00am History of paraplegia September 21, 2024 9:00 am Hx of spinal surgery September 21, 2024 9:00a m Hypoxia September 21, 2024 9:00am Lymphedema September 21, 2024 9:00am BATOOL treated with BiPAP September 21, 2024 9:0 0am Type 2 diabetes mellitus September 21, 2024 9 :00am Chronic indwelling Bartlett catheter September 9:00am Chronic pain September 21, 2024 9:00am HTN (hypertension) September 21, 2024 9:00am Chief Complaint Admit Date [facility] LAB WORK June 18, 2024 5:00am [facility] LAB WORK June 19, 2024 5:00am LABWORK June 25, 2024 5:00am MONTHLY EXAM June 26, 2024 3:36pm [facility] LAB WORK July 02 5:00am MONTHLY EXAM July 06, 2024 5:47pm LABWORK July 09, 2024 5:00am NEW CONCERN July 09, 2024 2:36pm NEW CONCERN July 10, 2024 3:07pm [facility] LAB WORK July 11 2:30am NEW CONCERN July 12, 2024 3:50pm LABWORK July 16, 2024 5:00 am ABSCESS ON LEG July 18, 2024 8:42 am LABWORK July 23, 2024 5:0 0am NEW CONCERN July 23, 2024 4:4 7pm MONTHLY EXAM July 24, 2024 5:3 9pm [facility] LAB WORK July 26, 2024 5 :00am LABWORK July 30, 2024 5:0 0am LABWORK August 06, 2024 5:0 0am [facility] LAB WORK August 13, 2024 5 :00am NEW CONCERN August 13, 2024 4:4 8pm [facility] LAB WORK August 20, 2024 4: 00am LABWORK August 27, 2024 5:0 0am LABWORK September 03, 2024 5:0 0am WOUND September 07, 2024 9:3 0am LABWORK September 17, 2024 5:00am DYSPNEA October 12, 2024 8:43a m WOUND October 12, 2024 9:00a m Reason for Visit Admit Date Abscess of back July 18, 2024 8:42 am Chronic anticoagulation September 07, 2024 9:30am Colostomy status September 07, 2024 9:3 0am Decubitus ulcer of left perineal ischial region, stage 2 September 07, 2024 9:30am Decubitus ulcer of right ischium, stage 3 September 07, 2024 9:30am Decubitus ulcer of sacral region, stage 4 September 07, 2024 9:30am History of deep vein thrombosis September 072024 9:30am History of paraplegia September 07, 2024 9 :30am Hx of spinal surgery September 07, 2024 9: 30am Hypoxia September 07, 2024 9:3 0am Lymphedema September 07, 2024 9:3 0am BATOOL treated with BiPAP September 07, 2024 9:30am Type 2 diabetes mellitus September 07 9:30am Chronic indwelling Bartlett catheter September 07, 2024 9:30am Chronic pain September 07, 2024 9:3 0am HTN (hypertension) September 07, 2024 9:3 0am Acute hypoxic respiratory failure October 122024 8:43am Chronic anticoagulation October 12, 2024 9 :00am Colostomy status October 12, 2024 9:00a m Decubitus ulcer of left perineal ischial region, stage 2 October 12, 2024 9:00am Decubitus ulcer of right ischium, stage 3 October 12, 2024 9:00am Decubitus ulcer of sacral region, stage 4 October 12, 2024 9:00am History of deep vein thrombosis September 9:00am History of paraplegia October 12, 2024 9:0 0am Hx of spinal surgery October 12, 2024 9:00 am Hypoxia October 12, 2024 9:00a m Lymphedema October 12, 2024 9:00a m BATOOL treated with BiPAP October 12, 2024 9: 00am Type 2 diabetes mellitus October 12, 2024 9:00am Chronic indwelling Bartlett catheter October 122024 9:00am Chronic pain October 12, 2024 9:00a m HTN (hypertension) October 12, 2024 9:00a m Chief Complaint Admit Date [facility] LAB WORK June 18, 2024 5:00am [facility] LAB WORK June 19, 2024 5:00am LABWORK June 25, 2024 5:00am MONTHLY EXAM June 26, 2024 3:36pm [facility] LAB WORK July 02 5:00am MONTHLY EXAM July 06, 2024 5:47pm LABWORK July 09, 2024 5:00am NEW CONCERN July 09, 2024 2:36pm NEW CONCERN July 10, 2024 3:07pm [facility] LAB WORK July 11 2:30am NEW CONCERN July 12, 2024 3:50pm LABWORK July 16, 2024 5:00 am ABSCESS ON LEG July 18, 2024 8:42 am LABWORK July 23, 2024 5:0 0am NEW CONCERN July 23, 2024 4:4 7pm MONTHLY EXAM July 24, 2024 5:3 9pm [facility] LAB WORK July 26, 2024 5 :00am LABWORK July 30, 2024 5:0 0am LABWORK August 06, 2024 5:0 0am [facility] LAB WORK August 13, 2024 5 :00am NEW CONCERN August 13, 2024 4:4 8pm [facility] LAB WORK August 20, 2024 4: 00am LABWORK August 27, 2024 5:0 0am LABWORK September 03, 2024 5:0 0am WOUND September 07, 2024 9:3 0am [facility] LAB WORK September 10, 2024 4 :00am LABWORK September 17, 2024 5:00am WOUND September 28, 2024 9:00a m DYSPNEA October 12, 2024 8:43a m DYSPNEA October 12, 2024 8:44a m DYSPNEA October 13, 2024 9:25a m Reason for Visit Admit Date Abscess of back July 18, 2024 8:42 am Chronic anticoagulation September 07, 2024 9:30am Colostomy status September 07, 2024 9:3 0am Decubitus ulcer of left perineal ischial region, stage 2 September 07, 2024 9:30am Decubitus ulcer of right ischium, stage 3 September 07, 2024 9:30am Decubitus ulcer of sacral region, stage 4 September 07, 2024 9:30am History of deep vein thrombosis September 072024 9:30am History of paraplegia September 07, 2024 9 :30am Hx of spinal surgery September 07, 2024 9: 30am Hypoxia September 07, 2024 9:3 0am Lymphedema September 07, 2024 9:3 0am BATOOL treated with BiPAP September 07, 2024 9:30am Type 2 diabetes mellitus September 07 9:30am Chronic indwelling Bartlett catheter September 07, 2024 9:30am Chronic pain September 07, 2024 9:3 0am HTN (hypertension) September 07, 2024 9:3 0am Chronic anticoagulation September 28, 2024 9 :00am Colostomy status September 28, 2024 9:00a m Decubitus ulcer of left perineal ischial region, stage 2 September 28, 2024 9:00am Decubitus ulcer of right ischium, stage 3 September 28, 2024 9:00am Decubitus ulcer of sacral region, stage 4 September 28, 2024 9:00am History of deep vein thrombosis September 9:00am History of paraplegia September 28, 2024 9:0 0am Hx of spinal surgery September 28, 2024 9:00 am Hypoxia September 28, 2024 9:00a m Lymphedema September 28, 2024 9:00a m BATOOL treated with BiPAP September 28, 2024 9: 00am Type 2 diabetes mellitus September 28, 2024 9:00am Chronic indwelling Bartlett catheter September 282024 9:00am Chronic pain September 28, 2024 9:00a m HTN (hypertension) September 28, 2024 9:00a m Acute hypoxic respiratory failure October 122024 8:43am Hypoxia October 12, 2024 8:43a m Pneumonia October 12, 2024 8:43a m Chief Complaint Admit Date LABWORK June 25, 2024 5:00am MONTHLY EXAM June 26, 2024 3:36pm [facility] LAB WORK July 02 5:00am MONTHLY EXAM July 06, 2024 5:47pm LABWORK July 09, 2024 5:00am NEW CONCERN July 09, 2024 2:36pm NEW CONCERN July 10, 2024 3:07pm [facility] LAB WORK July 11 2:30am NEW CONCERN July 12, 2024 3:50pm LABWORK July 16, 2024 5:00 am ABSCESS ON LEG July 18, 2024 8:42 am LABWORK July 23, 2024 5:0 0am NEW CONCERN July 23, 2024 4:4 7pm MONTHLY EXAM July 24, 2024 5:3 9pm [facility] LAB WORK July 26, 2024 5 :00am LABWORK July 30, 2024 5:0 0am LABWORK August 06, 2024 5:0 0am [facility] LAB WORK August 13, 2024 5 :00am NEW CONCERN August 13, 2024 4:4 8pm [facility] LAB WORK August 20, 2024 4: 00am LABWORK August 27, 2024 5:0 0am LABWORK September 03, 2024 5:0 0am WOUND September 07, 2024 9:3 0am [facility] LAB WORK September 10, 2024 4 :00am LABWORK September 17, 2024 5:00am WOUND September 28, 2024 9:00a m [facility] LAB WORK October 01, 2024 4:0 0am [facility] LAB WORK October 03, 2024 5:0 0am DYSPNEA October 12, 2024 8:43a m DYSPNEA October 12, 2024 8:44a m DYSPNEA October 13, 2024 9:25a m DYSPNEA October 14, 2024 7:36a m DYSPNEA October 15, 2024 8:39a m DYSPNEA October 16, 2024 10:07 am WOUND October 19, 2024 7:25a m Chief Complaint Admit Date [facility] LAB WORK July 02 5:00am MONTHLY EXAM July 06, 2024 5:47pm LABWORK July 09, 2024 5:00am NEW CONCERN July 09, 2024 2:36pm NEW CONCERN July 10, 2024 3:07pm [facility] LAB WORK July 11 2:30am NEW CONCERN July 12, 2024 3:50pm LABWORK July 16, 2024 5:00 am ABSCESS ON LEG July 18, 2024 8:42 am LABWORK July 23, 2024 5:0 0am NEW CONCERN July 23, 2024 4:4 7pm MONTHLY EXAM July 24, 2024 5:3 9pm [facility] LAB WORK July 26, 2024 5 :00am LABWORK July 30, 2024 5:0 0am LABWORK August 06, 2024 5:0 0am [facility] LAB WORK August 13, 2024 5 :00am NEW CONCERN August 13, 2024 4:4 8pm [facility] LAB WORK August 20, 2024 4: 00am LABWORK August 27, 2024 5:0 0am LABWORK September 03, 2024 5:0 0am WOUND September 07, 2024 9:3 0am [facility] LAB WORK September 10, 2024 4 :00am LABWORK September 17, 2024 5:00am [facility] LAB WORK September 24, 2024 5:0 0am WOUND May 16th, 2025 9:00a m [facility] LAB WORK October 01, 2024 4:0 0am [facility] [facility] October 03, 2024 5:0 0am [facility] October 09, 2024 5:0 0am DYSPNEA October 12, 2024 8:43a m DYSPNEA October 12, 2024 8:44a m DYSPNEA October 13, 2024 9:25a m DYSPNEA October 14, 2024 7:36a m DYSPNEA October 15, 2024 8:39a m DYSPNEA October 16, 2024 10:07 am WOUND October 26, 2024 9:00 am Reason for Visit Admit Date Abscess of back July 18, 2024 8:42 am Chronic anticoagulation September 07, 2024 9:30am Colostomy status September 07, 2024 9:3 0am Decubitus ulcer of left perineal ischial region, stage 2 September 07, 2024 9:30am Decubitus ulcer of right ischium, stage 3 September 07, 2024 9:30am Decubitus ulcer of sacral region, stage 4 September 07, 2024 9:30am History of deep vein thrombosis September 072024 9:30am History of paraplegia September 07, 2024 9 :30am Hx of spinal surgery September 07, 2024 9: 30am Lymphedema September 07, 2024 9:3 0am BATOOL treated with BiPAP September 07, 2024 9:30am Type 2 diabetes mellitus September 07 9:30am Chronic indwelling Bartlett catheter September 07, 2024 9:30am Chronic pain September 07, 2024 9:3 0am HTN (hypertension) September 07, 2024 9:3 0am Hypoxia September 07, 2024 9:3 0am Chronic anticoagulation September 28, 2024 9 :00am Colostomy status September 28, 2024 9:00a m Decubitus ulcer of left perineal ischial region, stage 2 September 28, 2024 9:00am Decubitus ulcer of right ischium, stage 3 September 28, 2024 9:00am Decubitus ulcer of sacral region, stage 4 September 28, 2024 9:00am History of deep vein thrombosis September 9:00am History of paraplegia September 28, 2024 9:0 0am Hx of spinal surgery September 28, 2024 9:00 am Lymphedema September 28, 2024 9:00a m BATOOL treated with BiPAP September 28, 2024 9: 00am Type 2 diabetes mellitus September 28, 2024 9:00am Chronic indwelling Bartlett catheter September 282024 9:00am Chronic pain September 28, 2024 9:00a m HTN (hypertension) September 28, 2024 9:00a m Hypoxia September 28, 2024 9:00a m Acute hypoxic respiratory failure October 122024 8:43am Hypoxia October 12, 2024 8:43a m Pneumonia October 12, 2024 8:43a m Chronic anticoagulation October 26, 2024 9:00am Colostomy status October 26, 2024 9:00 am Decubitus ulcer of left perineal ischial region, stage 2 October 26, 2024 9:00am Decubitus ulcer of right ischium, stage 3 October 26, 2024 9:00am Decubitus ulcer of sacral region, stage 4 October 26, 2024 9:00am History of deep vein thrombosis October 9:00am History of paraplegia October 26, 2024 9: 00am Hx of spinal surgery October 26, 2024 9:0 0am Lymphedema October 26, 2024 9:00 am BATOOL treated with BiPAP October 26, 2024 9 :00am Type 2 diabetes mellitus October 26, 2024 9:00am Chronic indwelling Bartlett catheter October 142024 9:00am Chronic pain October 26, 2024 9:00 am HTN (hypertension) October 26, 2024 9:00 am Hypoxia October 26, 2024 9:00 am Chief Complaint Admit Date [facility] July 02 5:00am MONTHLY EXAM July 06, 2024 5:47pm LABWORK July 09, 2024 5:00am NEW CONCERN July 09, 2024 2:36pm NEW CONCERN July 10, 2024 3:07pm [facility] July 11 2:30am NEW CONCERN July 12, 2024 3:50pm LABWORK July 16, 2024 5:00 am ABSCESS ON LEG July 18, 2024 8:42 am LABWORK July 23, 2024 5:0 0am NEW CONCERN July 23, 2024 4:4 7pm MONTHLY EXAM July 24, 2024 5:3 9pm [facility] July 26, 2024 5 :00am LABWORK July 30, 2024 5:0 0am LABWORK August 06, 2024 5:0 0am [facility] August 13, 2024 5 :00am NEW CONCERN August 13, 2024 4:4 8pm [facility] August 20, 2024 4: 00am LABWORK August 27, 2024 5:0 0am LABWORK September 03, 2024 5:0 0am WOUND September 07, 2024 9:3 0am [facility] September 10, 2024 4 :00am LABWORK September 17, 2024 5:00am [facility] September 24, 2024 5:0 0am WOUND September 28, 2024 9:00a m [facility] October 01, 2024 4:0 0am [facility] October 03, 2024 5:0 0am [facility] October 09, 2024 5:0 0am DYSPNEA October 12, 2024 8:43a m DYSPNEA October 12, 2024 8:44a m DYSPNEA October 13, 2024 9:25a m DYSPNEA October 14, 2024 7:36a m DYSPNEA October 15, 2024 8:39a m DYSPNEA October 16, 2024 10:07 am WOUND October 26, 2024 9:00 am ACUTE ON CHRONIC RESP FAILURE DUE TO P[facility] October 29, 2024 2:30pm Chief Complaint Admit Date [facility] June 18, 2024 5:00am [facility] June 19, 2024 5:00am LABWORK June 25, 2024 5:00am MONTHLY EXAM June 26, 2024 3:36pm [facility] July 02 5:00am MONTHLY EXAM July 06, 2024 5:47pm LABWORK July 09, 2024 5:00am NEW CONCERN July 09, 2024 2:36pm NEW CONCERN July 10, 2024 3:07pm [facility] July 11 2:30am NEW CONCERN July 12, 2024 3:50pm LABWORK July 16, 2024 5:00 am ABSCESS ON LEG July 18, 2024 8:42 am LABWORK July 23, 2024 5:0 0am NEW CONCERN July 23, 2024 4:4 7pm MONTHLY EXAM July 24, 2024 5:3 9pm [facility] July 26, 2024 5 :00am LABWORK July 30, 2024 5:0 0am LABWORK August 06, 2024 5:0 0am [facility] August 13, 2024 5 :00am NEW CONCERN August 13, 2024 4:4 8pm [facility] August 20, 2024 4: 00am LABWORK August 27, 2024 5:0 0am LABWORK September 03, 2024 5:0 0am WOUND September 07, 2024 9:3 0am [facility] September 10, 2024 4 :00am LABWORK September 17, 2024 5:00am WOUND September 28, 2024 9:00a m DYSPNEA October 12, 2024 8:43a m DYSPNEA October 12, 2024 8:44a m DYSPNEA October 13, 2024 9:25a m DYSPNEA October 14, 2024 7:36a m DYSPNEA October 15, 2024 8:39a m DYSPNEA October 16, 2024 10:07 am Chief Complaint Admit Date [facility] June 19, 2024 5:00am LABWORK June 25, 2024 5:00am MONTHLY EXAM June 26, 2024 3:36pm [facility] July 02 5:00am MONTHLY EXAM July 06, 2024 5:47pm LABWORK July 09, 2024 5:00am NEW CONCERN July 09, 2024 2:36pm NEW CONCERN July 10, 2024 3:07pm [facility] July 11 2:30am NEW CONCERN July 12, 2024 3:50pm LABWORK July 16, 2024 5:00 am ABSCESS ON LEG July 18, 2024 8:42 am LABWORK July 23, 2024 5:0 0am NEW CONCERN July 23, 2024 4:4 7pm MONTHLY EXAM July 24, 2024 5:3 9pm [facility] July 26, 2024 5 :00am LABWORK July 30, 2024 5:0 0am LABWORK August 06, 2024 5:0 0am [facility] August 13, 2024 5 :00am NEW CONCERN August 13, 2024 4:4 8pm [facility] August 20, 2024 4: 00am LABWORK August 27, 2024 5:0 0am LABWORK September 03, 2024 5:0 0am WOUND September 07, 2024 9:3 0am [facility] September 10, 2024 4 :00am LABWORK September 17, 2024 5:00am WOUND September 28, 2024 9:00a m DYSPNEA October 12, 2024 8:43a m DYSPNEA October 12, 2024 8:44a m DYSPNEA October 13, 2024 9:25a m DYSPNEA October 14, 2024 7:36a m DYSPNEA October 15, 2024 8:39a m DYSPNEA October 16, 2024 10:07 am Chief Complaint Admit Date MONTHLY EXAM July 06, 2024 5:47pm LABWORK July 09, 2024 5:00am NEW CONCERN July 09, 2024 2:36pm NEW CONCERN July 10, 2024 3:07pm [facility] July 11 2:30am NEW CONCERN July 12, 2024 3:50pm LABWORK July 16, 2024 5:00 am ABSCESS ON LEG July 18, 2024 8:42 am LABWORK July 23, 2024 5:0 0am NEW CONCERN July 23, 2024 4:4 7pm MONTHLY EXAM July 24, 2024 5:3 9pm [facility] July 26, 2024 5 :00am LABWORK July 30, 2024 5:0 0am LABWORK August 06, 2024 5:0 0am [facility] August 13, 2024 5 :00am NEW CONCERN August 13, 2024 4:4 8pm [facility] August 20, 2024 4: 00am Monthly Exam August 23, 2024 11: 16am LABWORK August 27, 2024 5:0 0am LABWORK September 03, 2024 5:0 0am WOUND September 07, 2024 9:3 0am New Concern September 07, 2024 6:0 5pm [facility] September 10, 2024 4 :00am LABWORK September 17, 2024 5:00am [facility] September 24, 2024 5:0 0am WOUND September 28, 2024 9:00a m [facility] October 01, 2024 4:0 0am [facility] October 03, 2024 5:0 0am [facility] October 03, 2024 3:3 0pm [facility] October 09, 2024 5:0 0am DYSPNEA October 12, 2024 8:43a m DYSPNEA October 12, 2024 8:44a m DYSPNEA October 13, 2024 9:25a m DYSPNEA October 14, 2024 7:36a m DYSPNEA October 15, 2024 8:39a m DYSPNEA October 16, 2024 10:07 am [facility] October 22, 2024 4:0 0am WOUND October 26, 2024 9:00 am ACUTE ON CHRONIC RESP FAILURE DUE TO PNE [facility] October 29, 2024 2:30pm ACUTE ON CHRONIC RESP FAILURE DUE TO PNE [facility] October 30, 2024 7:09am ACUTE ON CHRONIC RESP FAILURE DUE TO PNE [facility] October 30, 2024 4:44pm ACUTE ON CHRONIC RESP FAILURE DUE TO PNE [facility] October 31, 2024 7:55am ACUTE ON CHRONIC RESP FAILURE DUE TO PNE [facility] October 31, 2024 7:55pm ACUTE ON CHRONIC RESP FAILURE DUE TO PNE [facility] November 01, 2024 8:48am ACUTE ON CHRONIC RESP FAILURE DUE TO PNE [facility] November 01, 2024 2:39pm Reason for Visit Admit Date Abscess of back July 18, 2024 8:42 am Chronic anticoagulation September 07, 2024 9:30am Colostomy status September 07, 2024 9:3 0am Decubitus ulcer of left perineal ischial region, stage 2 September 07, 2024 9:30am Decubitus ulcer of right ischium, stage 3 September 07, 2024 9:30am Decubitus ulcer of sacral region, stage 4 September 07, 2024 9:30am History of deep vein thrombosis September 072024 9:30am History of paraplegia September 07, 2024 9 :30am Hx of spinal surgery September 07, 2024 9: 30am Lymphedema September 07, 2024 9:3 0am BATOOL treated with BiPAP September 07, 2024 9:30am Type 2 diabetes mellitus September 07 9:30am Chronic indwelling Bartlett catheter September 07, 2024 9:30am Chronic pain September 07, 2024 9:3 0am HTN (hypertension) September 07, 2024 9:3 0am Hypoxia September 07, 2024 9:3 0am Chronic anticoagulation September 28, 2024 9 :00am Colostomy status September 28, 2024 9:00a m Decubitus ulcer of left perineal ischial region, stage 2 September 28, 2024 9:00am Decubitus ulcer of right ischium, stage 3 September 28, 2024 9:00am Decubitus ulcer of sacral region, stage 4 September 28, 2024 9:00am History of deep vein thrombosis September 9:00am History of paraplegia September 28, 2024 9:0 0am Hx of spinal surgery September 28, 2024 9:00 am Lymphedema September 28, 2024 9:00a m BATOOL treated with BiPAP September 28, 2024 9: 00am Type 2 diabetes mellitus September 28, 2024 9:00am Chronic indwelling Bartlett catheter September 282024 9:00am Chronic pain September 28, 2024 9:00a m HTN (hypertension) September 28, 2024 9:00a m Hypoxia September 28, 2024 9:00a m Acute hypoxic respiratory failure October 122024 8:43am Hypoxia October 12, 2024 8:43a m Pneumonia October 12, 2024 8:43a m Chronic anticoagulation October 26, 2024 9:00am Colostomy status October 26, 2024 9:00 am Decubitus ulcer of left perineal ischial region, stage 2 October 26, 2024 9:00am Decubitus ulcer of right ischium, stage 3 October 26, 2024 9:00am Decubitus ulcer of sacral region, stage 4 October 26, 2024 9:00am History of deep vein thrombosis October 9:00am History of paraplegia October 26, 2024 9: 00am Hx of spinal surgery October 26, 2024 9:0 0am Lymphedema October 26, 2024 9:00 am BATOOL treated with BiPAP October 26, 2024 9 :00am Type 2 diabetes mellitus October 26, 2024 9:00am Chronic indwelling Bartlett catheter October 142024 9:00am Chronic pain October 26, 2024 9:00 am HTN (hypertension) October 26, 2024 9:00 am Hypoxia October 26, 2024 9:00 am Pneumonia October 29, 2024 2:30 pm Acute and chronic respiratory failure wi th hypoxia October 29, 2024 2:30pm Acute on chronic respiratory failure with hypoxia and hypercapnia October 29, 2024 2:30pm Chief Complaint Admit Date MONTHLY EXAM July 06, 2024 5:47pm LABWORK July 09, 2024 5:00am NEW CONCERN July 09, 2024 2:36pm NEW CONCERN July 10, 2024 3:07pm [facility] July 11 2:30am NEW CONCERN July 12, 2024 3:50pm LABWORK July 16, 2024 5:00 am ABSCESS ON LEG July 18, 2024 8:42 am LABWORK July 23, 2024 5:0 0am NEW CONCERN July 23, 2024 4:4 7pm MONTHLY EXAM July 24, 2024 5:3 9pm [facility] July 26, 2024 5 :00am LABWORK July 30, 2024 5:0 0am LABWORK August 06, 2024 5:0 0am [facility] August 13, 2024 5 :00am NEW CONCERN August 13, 2024 4:4 8pm [facility] August 20, 2024 4: 00am Monthly Exam August 23, 2024 11: 16am LABWORK August 27, 2024 5:0 0am LABWORK September 03, 2024 5:0 0am WOUND September 07, 2024 9:3 0am New Concern September 07, 2024 6:0 5pm [facility] September 10, 2024 4 :00am New Concern September 12, 2024 4:4 5pm LABWORK September 17, 2024 5:00am [facility] September 24, 2024 5:0 0am WOUND September 28, 2024 9:00a m [facility] October 01, 2024 4:0 0am [facility] October 03, 2024 5:0 0am [facility] October 03, 2024 3:3 0pm [facility] October 09, 2024 5:0 0am DYSPNEA October 12, 2024 8:43a m DYSPNEA October 12, 2024 8:44a m DYSPNEA October 13, 2024 9:25a m DYSPNEA October 14, 2024 7:36a m DYSPNEA October 15, 2024 8:39a m DYSPNEA October 16, 2024 10:07 am [facility] October 22, 2024 4:0 0am WOUND October 26, 2024 9:00 am ACUTE ON CHRONIC RESP FAILURE DUE TO PNE [place] October 29, 2024 2:30pm ACUTE ON CHRONIC RESP FAILURE DUE TO PNE [place] October 30, 2024 7:09am ACUTE ON CHRONIC RESP FAILURE DUE TO PNE [place] October 30, 2024 4:44pm ACUTE ON CHRONIC RESP FAILURE DUE TO PNE [place] October 31, 2024 7:55am ACUTE ON CHRONIC RESP FAILURE DUE TO PNE [place] October 31, 2024 7:55pm ACUTE ON CHRONIC RESP FAILURE DUE TO PNE [place] November 01, 2024 8:48am ACUTE ON CHRONIC RESP FAILURE DUE TO PNE [place] November 01, 2024 2:39pm Chief Complaint Admit Date LABWORK July 16, 2024 5:00 am ABSCESS ON LEG July 18, 2024 8:42 am LABWORK July 23, 2024 5:0 0am NEW CONCERN July 23, 2024 4:4 7pm MONTHLY EXAM July 24, 2024 5:3 9pm [facility] July 26, 2024 5 :00am LABWORK July 30, 2024 5:0 0am LABWORK August 06, 2024 5:0 0am [facility] August 13, 2024 5 :00am NEW CONCERN August 13, 2024 4:4 8pm [facility] August 20, 2024 4: 00am Monthly Exam August 23, 2024 11: 16am LABWORK August 27, 2024 5:0 0am LABWORK September 03, 2024 5:0 0am WOUND September 07, 2024 9:3 0am New Concern September 07, 2024 6:0 5pm [facility] September 10, 2024 4 :00am New Concern September 12, 2024 4:4 5pm LABWORK September 17, 2024 5:00am [facility] September 24, 2024 5:0 0am WOUND September 28, 2024 9:00a m [facility] October 01, 2024 4:0 0am [facility] October 03, 2024 5:0 0am [facility] October 03, 2024 3:3 0pm [facility] October 09, 2024 5:0 0am DYSPNEA October 12, 2024 8:43a m DYSPNEA October 12, 2024 8:44a m DYSPNEA October 13, 2024 9:25a m DYSPNEA October 14, 2024 7:36a m DYSPNEA October 15, 2024 8:39a m DYSPNEA October 16, 2024 10:07 am [facility] October 22, 2024 4:0 0am ACUTE ON CHRONIC RESP FAILURE DUE TO PNE [facility] October 29, 2024 2:30pm ACUTE ON CHRONIC RESP FAILURE DUE TO PNE [place] October 30, 2024 7:09am ACUTE ON CHRONIC RESP FAILURE DUE TO PNE [place] October 30, 2024 4:44pm ACUTE ON CHRONIC RESP FAILURE DUE TO PNE [place] October 31, 2024 7:55am ACUTE ON CHRONIC RESP FAILURE DUE TO PNE [place] October 31, 2024 7:55pm ACUTE ON CHRONIC RESP FAILURE DUE TO PNE [place] November 01, 2024 8:48am ACUTE ON CHRONIC RESP FAILURE DUE TO PNE [place] November 01, 2024 2:39pm WOUND November 09, 2024 9:00 am Reason for Visit Admit Date Abscess of back July 18, 2024 8:42 am Chronic anticoagulation September 07, 2024 9:30am Colostomy status September 07, 2024 9:3 0am Decubitus ulcer of left perineal ischial region, stage 2 September 07, 2024 9:30am Decubitus ulcer of right ischium, stage 3 September 07, 2024 9:30am Decubitus ulcer of sacral region, stage 4 September 07, 2024 9:30am History of deep vein thrombosis September 072024 9:30am History of paraplegia September 07, 2024 9 :30am Hx of spinal surgery September 07, 2024 9: 30am Lymphedema September 07, 2024 9:3 0am BATOOL treated with BiPAP September 07, 2024 9:30am Type 2 diabetes mellitus September 07 9:30am Chronic indwelling Bartlett catheter September 07, 2024 9:30am Chronic pain September 07, 2024 9:3 0am HTN (hypertension) September 07, 2024 9:3 0am Hypoxia September 07, 2024 9:3 0am Chronic anticoagulation September 28, 2024 9 :00am Colostomy status September 28, 2024 9:00a m Decubitus ulcer of left perineal ischial region, stage 2 September 28, 2024 9:00am Decubitus ulcer of right ischium, stage 3 September 28, 2024 9:00am Decubitus ulcer of sacral region, stage 4 September 28, 2024 9:00am History of deep vein thrombosis September 9:00am History of paraplegia September 28, 2024 9:0 0am Hx of spinal surgery September 28, 2024 9:00 am Lymphedema September 28, 2024 9:00a m BATOOL treated with BiPAP September 28, 2024 9: 00am Type 2 diabetes mellitus September 28, 2024 9:00am Chronic indwelling Bartlett catheter September 282024 9:00am Chronic pain September 28, 2024 9:00a m HTN (hypertension) September 28, 2024 9:00a m Hypoxia September 28, 2024 9:00a m Acute hypoxic respiratory failure October 122024 8:43am Hypoxia October 12, 2024 8:43a m Pneumonia October 12, 2024 8:43a m Pneumonia October 29, 2024 2:30 pm Acute and chronic respiratory failure hypoxia October 29, 2024 2:30pm Acute on chronic respiratory failure with hypoxia and hypercapnia October 29, 2024 2:30pm Chronic anticoagulation November 09, 2024 9:00am Colostomy status November 09, 2024 9:00 am Decubitus ulcer of left perineal ischial region, stage 2 November 09, 2024 9:00am Decubitus ulcer of right ischium, stage 3 November 09, 2024 9:00am Decubitus ulcer of sacral region, stage 4 November 09, 2024 9:00am History of deep vein thrombosis October 9:00am History of paraplegia November 09, 2024 9: 00am Hx of spinal surgery November 09, 2024 9:0 0am Lymphedema November 09, 2024 9:00 am BATOOL treated with BiPAP November 09, 2024 9 :00am Type 2 diabetes mellitus November 09, 2024 9:00am Chronic indwelling Bartlett catheter October 152024 9:00am Chronic pain November 09, 2024 9:00 am HTN (hypertension) November 09, 2024 9:00 am Hypoxia November 09, 2024 9:00 am Reason for Referral Specialty Diagnoses / Procedures Referred By Contac t Referred To Contact Radiology Diagnoses Sacral decubitus ulcer, stage IV (HCC) Procedures MR pelvis w and wo contrast Lenard Ling MD [address] [place] [id number] Referral ID Status Reason Start Date Expiration Date V isits Requested Visits Authorized [id number] Pending Review 02/29/2024 02/28/2025 1 1 Additional Source Comments (unrecognized sect ion and content) No Status Records FoundNo Status Records FoundNo Status Records FoundNo Status Records FoundNo Status Records FoundNo Status Records FoundNo Status Records FoundNo Status Records FoundNo Status Records FoundNo Status Records Found INFORMATION SOURCE (unrecogn ized section and content) DATE CREATED AUTHOR 11/11/2017 [facility] DATE CREATED AUTHOR AUTHOR'S ORGANIZ ATION 07/05/2021 [facility] [place] DATE CREATED AUTHOR AUTHOR'S ORGANIZ ATION 12/15/2022 [facility] DATE CREATED AUTHOR AUTHOR'S ORGANIZ ATION 05/27/2023 [facility] DATE CREATED AUTHOR AUTHOR'S ORGANIZ ATION 08/15/2023 [facility] DATE CREATED AUTHOR AUTHOR'S ORGANIZ ATION 08/20/2023 [facility] ([place] DATE CREATED AUTHOR AUTHOR'S ORGANIZ ATION 04/03/2024 [facility] DATE CREATED AUTHOR AUTHOR'S ORGANIZ ATION 07/01/2024 [facility] DATE CREATED AUTHOR AUTHOR'S ORGANIZ ATION 07/30/2024 [facility] DATE CREATED AUTHOR AUTHOR'S ORGANIZ ATION 11/22/2024 [facility] Care Teams (unrecognized sec tion and content) Team Status: Active Member Role Status Dates Dr. Rocio Bartlett MD Primary Care Provider Active Team Status: Inactive Member Role Status Dates Dr. Rocio Bartlett MD Primary Care Provider Active Start: July 06, 2024 End: July 06, 2024 Nay Beal JORDAN WORKER, JORDAN WORKER-C Attending Provider Active Start: July 06, 2024 End: July 06, 2024 Team Status: Inactive Member Role Status Dates Dr. Rocio Bartlett MD Primary Care Provider Active Start: July 09, 2024 End: July 09, 2024 Rocio HUTTON MD Attending Provider Active Start: July 09, 2024 End: July 09, 2024 Team Status: Inactive Member Role Status Dates Dr. Rocio Bartlett MD Primary Care Provider Active Start: July 09, 2024 End: July 09, 2024 Nay Beal JORDAN WORKER, JORDAN WORKER-C Attending Provider Active Start: July 09, 2024 End: July 09, 2024 Team Status: Inactive Member Role Status Dates Dr. Rocio Bartlett MD Primary Care Provider Active Start: July 10, 2024 End: July 10, 2024 Nay Beal JORDAN WORKER, JORDAN WORKER-C Attending Provider Active Start: July 10, 2024 End: July 10, 2024 Team Status: Inactive Member Role Status Dates Dr. Rocio Bartlett MD Primary Care Provider Active Start: July 11, 2024 End: July 11, 2024 Rocio HUTTON MD Attending Provider Active Start: July 11, 2024 End: July 11, 2024 Team Status: Inactive Member Role Status Dates Dr. Rocio Bartlett MD Primary Care Provider Active Start: July 12, 2024 End: July 12, 2024 Nay Beal JORDAN WORKER, JORDAN WORKER-C Attending Provider Active Start: July 12, 2024 End: July 12, 2024 Team Status: Inactive Member Role Status Dates Dr. Rocio Bartlett MD Primary Care Provider Active Start: July 16, 2024 End: July 16, 2024 Rocio HUTTON MD Attending Provider Active Start: July 16, 2024 End: July 16, 2024 Team Status: Inactive Member Role Status Dates Dr. Rocio Bartlett MD Primary Care Provider Active Start: July 18, 2024 End: July 18, 2024 Dr. Rocio Bartlett MD Referring Provider Active Start: July 18, 2024 End: July 18, 2024 Dr. Lamonte Lopez MD Attending Provider Active Start: July 18, 2024 End: July 18, 2024 Team Status: Inactive Member Role Status Dates Dr. Rocio Bartlett MD Primary Care Provider Active Start: July 23, 2024 End: July 23, 2024 Rocio HUTTON MD Attending Provider Active Start: July 23, 2024 End: July 23, 2024 Team Status: Inactive Member Role Status Dates Dr. Rocio Bartlett MD Primary Care Provider Active Start: July 23, 2024 End: July 23, 2024 Nay Beal JORDAN WORKER, JORDAN WORKER-C Attending Provider Active Start: July 23, 2024 End: July 23, 2024 Team Status: Inactive Member Role Status Dates Dr. Rocio Bartlett MD Primary Care Provider Active Start: July 24, 2024 End: July 24, 2024 Dr. Rocio Bartlett MD Attending Provider Active Start: July 24, 2024 End: July 24, 2024 Team Status: Inactive Member Role Status Dates Dr. Rocio Bartlett MD Primary Care Provider Active Start: July 26, 2024 End: July 26, 2024 Rocio HUTTON MD Attending Provider Active Start: July 26, 2024 End: July 26, 2024 Team Status: Inactive Member Role Status Dates Dr. Rocio Bartlett MD Primary Care Provider Active Start: July 30, 2024 End: July 30, 2024 Rocio HUTTON MD Attending Provider Active Start: July 30, 2024 End: July 30, 2024 Team Status: Inactive Member Role Status Dates Dr. Rocio Bartlett MD Primary Care Provider Active Start: August 06, 2024 End: August 06, 2024 Rocio HUTTON MD Attending Provider Active Start: August 06, 2024 End: August 06, 2024 Team Status: Inactive Member Role Status Dates Dr. Rocio Bartlett MD Primary Care Provider Active Start: August 13, 2024 End: August 13, 2024 Rocio HUTTON MD Attending Provider Active Start: August 13, 2024 End: August 13, 2024 Team Status: Inactive Member Role Status Dates Dr. Rocio Bartlett MD Primary Care Provider Active Start: August 13, 2024 End: August 13, 2024 Nay Beal JORDAN WORKER, JORDAN WORKER-C Attending Provider Active Start: August 13, 2024 End: August 13, 2024 Team Status: Inactive Member Role Status Dates Dr. Rocio Bartlett MD Primary Care Provider Active Start: August 20, 2024 End: August 20, 2024 Rocio HUTTON MD Attending Provider Active Start: August 20, 2024 End: August 20, 2024 Rocio HUTTON MD Referring Provider Active Start: August 20, 2024 End: August 20, 2024 Team Status: Inactive Member Role Status Dates Dr. Rocio Bartlett MD Primary Care Provider Active Start: August 23, 2024 End: August 23, 2024 MAVERICK Whitten Attending Provider Active St art: August 23, 2024 End: August 23, 2024 Team Status: Inactive Member Role Status Dates Dr. Rocio Bartlett MD Primary Care Provider Active Start: August 27, 2024 End: August 27, 2024 Rocio HUTTON MD Attending Provider Active Start: August 27, 2024 End: August 27, 2024 Team Status: Inactive Member Role Status Dates Dr. Rocio Bartlett MD Primary Care Provider Active Start: September 03, 2024 End: September 03, 2024 Rocio HUTTON MD Attending Provider Active Start: September 03, 2024 End: September 03, 2024 Team Status: Inactive Member Role Status Dates Dr. Rocio Bartlett MD Primary Care Provider Active Start: September 07, 2024 End: September 12, 2024 Dr. Rocio Bartlett MD Referring Provider Active Start: September 07, 2024 End: September 12, 2024 Dr. Peter Thayer DO Attending Provider Active St art: September 07, 2024 End: September 12, 2024 Team Status: Inactive Member Role Status Dates Dr. Rocio Bartlett MD Primary Care Provider Active Start: September 07, 2024 End: September 07, 2024 Nay Beal NP, JORDAN WORKER-C Attending Provider Active Start: September 07, 2024 End: September 07, 2024 Team Status: Inactive Member Role Status Dates Dr. Rocio Bartlett MD Primary Care Provider Active Start: September 10, 2024 End: September 10, 2024 Rocio HUTTON MD Attending Provider Active Start: September 10, 2024 End: September 10, 2024 Rocio HUTTON MD Referring Provider Active Start: September 10, 2024 End: September 10, 2024 Team Status: Inactive Member Role Status Dates Dr. Rocio Bartlett MD Primary Care Provider Active Start: September 17, 2024 End: September 17, 2024 Rocio HUTTON MD Attending Provider Active Start: September 17, 2024 End: September 17, 2024 Team Status: Inactive Member Role Status Dates Dr. Rocio Bartlett MD Primary Care Provider Active Start: September 24, 2024 End: September 24, 2024 Rocio HUTTON MD Attending Provider Active Start: September 24, 2024 End: September 24, 2024 Team Status: Inactive Member Role Status Dates Dr. Rocio Bartlett MD Primary Care Provider Active Start: September 28, 2024 End: October 13, 2024 Dr. Rocio Bartlett MD Referring Provider Active Start: September 28, 2024 End: October 13, 2024 Dr. Peter Thayer DO Attending Provider Active St art: September 28, 2024 End: October 13, 2024 Team Status: Active Member Role Status Dates Dr. Rocio Bartlett MD Primary Care Provider Active Start: October 01, 2024 Rocio HUTTON MD Attending Provider Active Start: October 01, 2024 Rocio HUTTON MD Referring Provider Active Start: October 01, 2024 Team Status: Inactive Member Role Status Dates Dr. Rocio Bartlett MD Primary Care Provider Active Start: October 03, 2024 End: October 03, 2024 Rocio HUTTON MD Attending Provider Active Start: October 03, 2024 End: October 03, 2024 Team Status: Active Member Role Status Dates Dr. Rocio Bartlett MD Primary Care Provider Active Start: October 03, 2024 Rocio HUTTON MD Attending Provider Active Start: October 03, 2024 Team Status: Active Member Role Status Dates Dr. Rocio Bartlett MD Primary Care Provider Active Start: October 09, 2024 Rocio HUTTON MD Attending Provider Active Start: October 09, 2024 Team Status: Inactive Member Role Status Dates Dr. Rocio Bartlett MD Primary Care Provider Active Start: October 12, 2024 End: October 16, 2024 Dr. Srinivasa Salvador MD Emergency Provider Active Start: October 12, 2024 End: October 16, 2024 Dr. Palmira Johnson MD Admit Provider Active Star t: October 12, 2024 End: October 16, 2024 Dr. Palmira Johnson MD Attending Provider Active Start: October 12, 2024 End: October 16, 2024 Team Status: Active Member Role Status Dates Dr. Rocio Bartlett MD Primary Care Provider Active Start: October 12, 2024 Dr. Srinivasa Salvador MD Emergency Provider Active Start: October 12, 2024 Dr. Palmira Johnson MD Admit Provider Active Star t: October 12, 2024 Dr. Palmira Johnson MD Attending Provider Active Start: October 12, 2024 Dr. Palmira Johnson MD Other Provider Active Star t: October 12, 2024 Team Status: Active Member Role Status Dates Dr. Rocio Bartlett MD Primary Care Provider Active Start: October 13, 2024 Dr. Radha Green MD Attending Provider Active Start: October 13, 2024 Team Status: Active Member Role Status Dates Dr. Rocio Bartlett MD Primary Care Provider Active Start: October 13, 2024 Dr. Srinivasa Salvador MD Emergency Provider Active Start: October 13, 2024 Dr. Palmira Johnson MD Admit Provider Active Star t: October 13, 2024 Dr. Palmira Johnson MD Attending Provider Active Start: October 13, 2024 Dr. Palmira Johnson MD Other Provider Active Star t: October 13, 2024 Team Status: Active Member Role Status Dates Dr. Rocio Bartlett MD Primary Care Provider Active Start: October 14, 2024 Dr. Srinivasa Salvador MD Emergency Provider Active Start: October 14, 2024 Dr. Palmira Johnson MD Admit Provider Active Star t: October 14, 2024 Dr. Palmira Johnson MD Attending Provider Active Start: October 14, 2024 Dr. Palmira Johnson MD Other Provider Active Star t: October 14, 2024 Team Status: Active Member Role Status Dates Dr. Rocio Bartlett MD Primary Care Provider Active Start: October 15, 2024 Dr. Srinivasa Salvador MD Emergency Provider Active Start: October 15, 2024 Dr. Palmira Johnson MD Admit Provider Active Star t: October 15, 2024 Dr. Palmira Johnson MD Attending Provider Active Start: October 15, 2024 Dr. Palmira Johnson MD Other Provider Active Star t: October 15, 2024 Team Status: Active Member Role Status Dates Dr. Rocio Bartlett MD Primary Care Provider Active Start: October 16, 2024 Dr. Srinivasa Salvador MD Emergency Provider Active Start: October 16, 2024 Dr. Palmira Johnson MD Admit Provider Active Star t: October 16, 2024 Dr. Palmira Johnson MD Attending Provider Active Start: October 16, 2024 Dr. Palmira Johnson MD Other Provider Active Star t: October 16, 2024 Team Status: Active Member Role Status Dates Dr. Rocio Bartlett MD Primary Care Provider Active Start: October 22, 2024 Rocio HUTTON MD Attending Provider Active Start: October 22, 2024 Rocio HUTTON MD Referring Provider Active Start: October 22, 2024 Team Status: Active Member Role Status Dates Dr. Rocio Bartlett MD Primary Care Provider Active Start: October 26, 2024 Dr. Rocio Bartlett MD Referring Provider Active Start: October 26, 2024 Dr. Peter Thayer DO Attending Provider Active St art: October 26, 2024 Team Status: Active Member Role Status Dates Dr. Rocio Bartlett MD Primary Care Provider Active Start: October 29, 2024 Rocio HUTTON MD Attending Provider Active Start: October 29, 2024 Team Status: Active Member Role Status Dates Dr. Rocio Bartlett MD Primary Care Provider Active Start: October 29, 2024 Dr. Ibrahima Kolb , Emergency Provider Active Start: October 29, 2024 Dr. Percy Price , Admit Provider Active Start: October 29, 2024 Dr. Percy Price DO Referring Provider Active Start: October 29, 2024 Dr. Percy Price DO Other Provider Active Start: October 29, 2024 Dr. Bryant Day MD Other Provider Active Start: October 29, 2024 Dr. Josef Storey MD Other Provider Active Start: October 29, 2024 Dr. Cristi Gann MD Other Provider Active Star t: October 29, 2024 Dr. Tez Tuttle , Other Provider Active Start : October 29, 2024 Dr. Palmira Campo MD Other Provider Active Sta rt: October 29, 2024 Dr. Elio Soto MD Other Provider Active St art: October 29, 2024 Dr. Titus Fletcher MD Other Provider Active S tart: October 29, 2024 Dr. Alysha Cameron MD Other Provider Active Start: October 29, 2024 Dr. Brien Martinez MD Other Provider Active Start : October 29, 2024 Dr. Jean Mejía MD Other Provider Active Start: October 29, 2024 Dr. Paresh Mendoza MD Other Provider Active Start : October 29, 2024 Dr. Sully Rebolledo MD Other Provider Active Star t: October 29, 2024 Dr. Dimitris Chacko MD Other Provider Active Sta rt: October 29, 2024 Dr. Radha Still MD Other Provider Active Sta rt: October 29, 2024 Dr. Bunny Hughes MD Other Provider Active Star t: October 29, 2024 Dr. Juaquin York MD Other Provider Active St art: October 29, 2024 Dr. Americo Bryan MD Other Provider Active Star t: October 29, 2024 Dr. Ahsan Verdin DO Other Provider Active St art: October 29, 2024 Dr. Doni Gonzalez MD Other Provider Active Start: October 29, 2024 Dr. Dee Ellsworth MD Other Provider Active St art: October 29, 2024 Dr. Manuelito Porter , Other Provider Active Start: October 29, 2024 Dr. Georgi Sanz MD Other Provider Active Star t: October 29, 2024 Dr. Alex Martinez MD Other Provider Active Sta rt: October 29, 2024 Dr. Le Wiggins MD Attending Provider Active Start: October 29, 2024 Dr. Maurizio Parra DO Other Provider Active S tart: October 29, 2024 Dr. Minda Cm MD Other Provider Active Start: October 29, 2024 Team Status: Active Member Role Status Dates Dr. Rocio Bartlett MD Primary Care Provider Active Start: October 30, 2024 Dr. Ibrahima Kolb , Emergency Provider Active Start: October 30, 2024 Dr. Percy Price , Admit Provider Active Start: October 30, 2024 Dr. Percy Price DO Referring Provider Active Start: October 30, 2024 Dr. Percy Price DO Other Provider Active Start: October 30, 2024 Dr. Bryant Day MD Other Provider Active Start: October 30, 2024 Dr. Josef Storey MD Other Provider Active Start: October 30, 2024 Dr. Cristi Gann MD Other Provider Active Star t: October 30, 2024 Dr. Tez Tuttle DO Attending Provider Active S tart: October 30, 2024 Dr. Tez Tuttle DO Other Provider Active Start : October 30, 2024 Dr. Palmira Campo MD Other Provider Active Sta rt: October 30, 2024 Dr. Elio Soto MD Other Provider Active St art: October 30, 2024 Dr. Titus Fletcher MD Other Provider Active S tart: October 30, 2024 Dr. Alysha Cameron MD Other Provider Active Start: October 30, 2024 Dr. Brien Martinez MD Other Provider Active Start : October 30, 2024 Dr. Jean Mejía MD Other Provider Active Start: October 30, 2024 Dr. Paresh Mendoza MD Other Provider Active Start : October 30, 2024 Dr. Sully Rebolledo MD Other Provider Active Star t: October 30, 2024 Dr. Dimitris Chacko MD Other Provider Active Sta rt: October 30, 2024 Dr. Radha Still MD Other Provider Active Sta rt: October 30, 2024 Dr. Bunny Hughes MD Other Provider Active Star t: October 30, 2024 Dr. Juaquin York MD Other Provider Active St art: October 30, 2024 Dr. Americo Bryan MD Other Provider Active Star t: October 30, 2024 Dr. Ahsan Verdin , Other Provider Active St art: October 30, 2024 Dr. Doni Gonzalez MD Other Provider Active Start: October 30, 2024 Dr. Dee Ellsworth MD Other Provider Active St art: October 30, 2024 Dr. Manuelito Porter , DO Other Provider Active Start: October 30, 2024 Dr. Georgi Sanz MD Other Provider Active Star t: October 30, 2024 Dr. Alex Martinez MD Other Provider Active Sta rt: October 30, 2024 Dr. Maurizio Parra DO Other Provider Active S tart: October 30, 2024 Team Status: Active Member Role Status Dates Dr. Rocio Bartlett MD Primary Care Provider Active Start: October 30, 2024 Dr. Ibrahima Kolb DO Emergency Provider Active Start: October 30, 2024 Dr. Percy Price DO Admit Provider Active Start: October 30, 2024 Dr. Percy Price DO Referring Provider Active Start: October 30, 2024 Dr. Percy Price DO Other Provider Active Start: October 30, 2024 Dr. Bryant Day MD Other Provider Active Start: October 30, 2024 Dr. Josef Storey MD Other Provider Active Start: October 30, 2024 Dr. Cristi Gann MD Other Provider Active Star t: October 30, 2024 Dr. Tez Tuttle DO Other Provider Active Start : October 30, 2024 Dr. Palmira Campo MD Other Provider Active Sta rt: October 30, 2024 Dr. Elio Soto MD Other Provider Active St art: October 30, 2024 Dr. Titus Fletcher MD Other Provider Active S tart: October 30, 2024 Dr. Alysha Cameron MD Other Provider Active Start: October 30, 2024 Dr. Brien Martinez MD Other Provider Active Start : October 30, 2024 Dr. Jean Mejía MD Other Provider Active Start: October 30, 2024 Dr. Paresh Mendoza MD Other Provider Active Start : October 30, 2024 Dr. Sully Rebolledo MD Other Provider Active Star t: October 30, 2024 Dr. Dimitris Chacko MD Other Provider Active Sta rt: October 30, 2024 Dr. Radha Still MD Other Provider Active Sta rt: October 30, 2024 Dr. Bunny Hughes MD Other Provider Active Star t: October 30, 2024 Dr. Juaquin York MD Other Provider Active St art: October 30, 2024 Dr. Americo Bryan MD Other Provider Active Star t: October 30, 2024 Dr. Ahsan Verdin , Other Provider Active St art: October 30, 2024 Dr. Doni Gonzalez MD Other Provider Active Start: October 30, 2024 Dr. Dee Ellsworth MD Other Provider Active St art: October 30, 2024 Dr. Manuelito Porter DO Other Provider Active Start: October 30, 2024 Dr. Georgi Sanz MD Other Provider Active Star t: October 30, 2024 Dr. Alex Martinez MD Other Provider Active Sta rt: October 30, 2024 Dr. Maurizio Parra DO Attending Provider Active Start: October 30, 2024 Dr. Maurizio Parra DO Other Provider Active S tart: October 30, 2024 Team Status: Active Member Role Status Dates Dr. Rocio Bartlett MD Primary Care Provider Active Start: October 31, 2024 Dr. Ibrahima Kolb DO Emergency Provider Active Start: October 31, 2024 Dr. Percy Price , DO Admit Provider Active Start: October 31, 2024 Dr. Percy Price DO Referring Provider Active Start: October 31, 2024 Dr. Percy Price DO Other Provider Active Start: October 31, 2024 Dr. Bryant Day MD Other Provider Active Start: October 31, 2024 Dr. Josef Storey MD Other Provider Active Start: October 31, 2024 Dr. Cristi Gann MD Other Provider Active Star t: October 31, 2024 Dr. Tez Tuttle , Attending Provider Active S tart: October 31, 2024 Dr. Tez Tuttle , Other Provider Active Start : October 31, 2024 Dr. Palmira Campo MD Other Provider Active Sta rt: October 31, 2024 Dr. Elio Soto MD Other Provider Active St art: October 31, 2024 Dr. Titus Fletcher MD Other Provider Active S tart: October 31, 2024 Dr. Alysha Cameron MD Other Provider Active Start: October 31, 2024 Dr. Brien Martinez MD Other Provider Active Start : October 31, 2024 Dr. Jean Mejía MD Other Provider Active Start: October 31, 2024 Dr. Paresh Mendoza MD Other Provider Active Start : October 31, 2024 Dr. Sully Rebolledo MD Other Provider Active Star t: October 31, 2024 Dr. Dimitris Chacko MD Other Provider Active Sta rt: October 31, 2024 Dr. Radha Still MD Other Provider Active Sta rt: October 31, 2024 Dr. Bunny Hughes MD Other Provider Active Star t: October 31, 2024 Dr. Juaquin York MD Other Provider Active St art: October 31, 2024 Dr. Americo Bryan MD Other Provider Active Star t: October 31, 2024 Dr. Ahsan Verdin , Other Provider Active St art: October 31, 2024 Dr. Doni Gonzalez MD Other Provider Active Start: October 31, 2024 Dr. Dee Ellsworth MD Other Provider Active St art: October 31, 2024 Dr. Manuelito Porter , Other Provider Active Start: October 31, 2024 Dr. Georgi Sanz MD Other Provider Active Star t: October 31, 2024 Dr. Alex Martinez MD Other Provider Active Sta rt: October 31, 2024 Dr. Le Wiggins MD Other Provider Active Star t: October 31, 2024 Dr. Maurizio Parra DO Other Provider Active S tart: October 31, 2024 Team Status: Active Member Role Status Dates Dr. Rocio Bartlett MD Primary Care Provider Active Start: October 31, 2024 Dr. Ibrahima Kolb DO Emergency Provider Active Start: October 31, 2024 Dr. Percy Price DO Admit Provider Active Start: October 31, 2024 Dr. Percy Price DO Referring Provider Active Start: October 31, 2024 Dr. Percy Price DO Other Provider Active Start: October 31, 2024 Dr. Bryant Day MD Other Provider Active Start: October 31, 2024 Dr. Josef Storey MD Other Provider Active Start: October 31, 2024 Dr. Cristi Gann MD Other Provider Active Star t: October 31, 2024 Dr. Tez Tuttle , Other Provider Active Start : October 31, 2024 Dr. Palmira Campo MD Other Provider Active Sta rt: October 31, 2024 Dr. Elio Soto MD Other Provider Active St art: October 31, 2024 Dr. Titus Fletcher MD Other Provider Active S tart: October 31, 2024 Dr. Alysha Cameron MD Other Provider Active Start: October 31, 2024 Dr. Brien Martinez MD Other Provider Active Start : October 31, 2024 Dr. Jean Mejía MD Other Provider Active Start: October 31, 2024 Dr. Paresh Mendoza MD Other Provider Active Start : October 31, 2024 Dr. Sully Rebolledo MD Other Provider Active Star t: October 31, 2024 Dr. Dimitris Chacko MD Other Provider Active Sta rt: October 31, 2024 Dr. Radha Still MD Other Provider Active Sta rt: October 31, 2024 Dr. Bunny Hughes MD Other Provider Active Star t: October 31, 2024 Dr. Juaquin York MD Other Provider Active St art: October 31, 2024 Dr. Americo Bryan MD Other Provider Active Star t: October 31, 2024 Dr. Ahsan Verdin , Other Provider Active St art: October 31, 2024 Dr. Doni Gonzalez MD Other Provider Active Start: October 31, 2024 Dr. Dee Ellsworth MD Other Provider Active St art: October 31, 2024 Dr. Manuelito Porter , Other Provider Active Start: October 31, 2024 Dr. Georgi Sanz MD Other Provider Active Star t: October 31, 2024 Dr. Alex Martinez MD Other Provider Active Sta rt: October 31, 2024 Dr. Le Wiggins MD Attending Provider Active Start: October 31, 2024 Dr. Le Wiggins MD Other Provider Active Star t: October 31, 2024 Dr. Maurizio Parra DO Other Provider Active S tart: October 31, 2024 Team Status: Active Member Role Status Dates Dr. Rocio Bartlett MD Primary Care Provider Active Start: November 01, 2024 Dr. Ibrahima Kolb , Emergency Provider Active Start: November 01, 2024 Dr. Percy Price DO Admit Provider Active Start: November 01, 2024 Dr. Percy Price DO Referring Provider Active Start: November 01, 2024 Dr. Percy Price DO Other Provider Active Start: November 01, 2024 Dr. Bryant Day MD Other Provider Active Start: November 01, 2024 Dr. Josef Storey MD Other Provider Active Start: November 01, 2024 Dr. Cristi Gann MD Other Provider Active Star t: November 01, 2024 Dr. Tez Tuttle DO Attending Provider Active S tart: November 01, 2024 Dr. Tez Tuttle DO Other Provider Active Start : November 01, 2024 Dr. Palmira Campo MD Other Provider Active Sta rt: November 01, 2024 Dr. Elio Soto MD Other Provider Active St art: November 01, 2024 Dr. Titus Fletcher MD Other Provider Active S tart: November 01, 2024 Dr. Alysha Cameron MD Other Provider Active Start: November 01, 2024 Dr. Brien Martinez MD Other Provider Active Start : November 01, 2024 Dr. Jean Mejía MD Other Provider Active Start: November 01, 2024 Dr. Paresh Mendoza MD Other Provider Active Start : November 01, 2024 Dr. Sully Rebolledo MD Other Provider Active Star t: November 01, 2024 Dr. Dimitris Chacko MD Other Provider Active Sta rt: November 01, 2024 Dr. Radha Still MD Other Provider Active Sta rt: November 01, 2024 Dr. Bunny Hughes MD Other Provider Active Star t: November 01, 2024 Dr. Juaquin York MD Other Provider Active St art: November 01, 2024 Dr. Americo Bryan MD Other Provider Active Star t: November 01, 2024 Dr. Ahsan Verdin , DO Other Provider Active St art: November 01, 2024 Dr. Doni Gonzalez MD Other Provider Active Start: November 01, 2024 Dr. Dee Ellsworth MD Other Provider Active St art: November 01, 2024 Dr. Manuelito Porter , DO Other Provider Active Start: November 01, 2024 Dr. Georgi Sanz MD Other Provider Active Star t: November 01, 2024 Dr. Alex Martinez MD Other Provider Active Sta rt: November 01, 2024 Dr. Le Wiggins MD Other Provider Active Star t: November 01, 2024 Dr. Maurizio Parra , DO Other Provider Active S tart: November 01, 2024 Dr. Minda Cm MD Other Provider Active Start: November 01, 2024 Team Status: Active Member Role Status Dates Dr. Rocio Bartlett MD Primary Care Provider Active Start: November 01, 2024 Dr. Ibrahima Kolb , Emergency Provider Active Start: November 01, 2024 Dr. Percy Price , Admit Provider Active Start: November 01, 2024 Dr. Percy Price DO Referring Provider Active Start: November 01, 2024 Dr. Percy Price , DO Other Provider Active Start: November 01, 2024 Dr. Bryant Day MD Other Provider Active Start: November 01, 2024 Dr. Josef Storey MD Other Provider Active Start: November 01, 2024 Dr. Cristi Gann MD Other Provider Active Star t: November 01, 2024 Dr. Tez Tuttle , DO Other Provider Active Start : November 01, 2024 Dr. Palmira Campo MD Other Provider Active Sta rt: November 01, 2024 Dr. Elio Soto MD Other Provider Active St art: November 01, 2024 Dr. Titus Fletcher MD Other Provider Active S tart: November 01, 2024 Dr. Alysha Cameron MD Other Provider Active Start: November 01, 2024 Dr. Brien Martinez MD Other Provider Active Start : November 01, 2024 Dr. Jean Mejía MD Other Provider Active Start: November 01, 2024 Dr. Paresh Mendoza MD Other Provider Active Start : November 01, 2024 Dr. Sully Rebolledo MD Other Provider Active Star t: November 01, 2024 Dr. Dimitris Chacko MD Other Provider Active Sta rt: November 01, 2024 Dr. Radha Still MD Other Provider Active Sta rt: November 01, 2024 Dr. Bunny Hughes MD Other Provider Active Star t: November 01, 2024 Dr. Juaquin York MD Other Provider Active St art: November 01, 2024 Dr. Americo Bryan MD Other Provider Active Star t: November 01, 2024 Dr. Ahsan Verdin , Other Provider Active St art: November 01, 2024 Dr. Doni Gonzalez MD Other Provider Active Start: November 01, 2024 Dr. Dee Ellsworth MD Other Provider Active St art: November 01, 2024 Dr. Manuelito Porter DO Other Provider Active Start: November 01, 2024 Dr. Georgi Sanz MD Other Provider Active Star t: November 01, 2024 Dr. Alex Martinez MD Other Provider Active Sta rt: November 01, 2024 Dr. Le Wiggins MD Attending Provider Active Start: November 01, 2024 Dr. Le Wiggins MD Other Provider Active Star t: November 01, 2024 Dr. Maurizio Parra , Other Provider Active S tart: November 01, 2024 Dr. Minda Cm MD Other Provider Active Start: November 01, 2024 Team Status: Active Member Role Status Dates Dr. Rocio Bartlett MD Primary Care Provider Active Start: June 18, 2024 Rocio HUTTON MD Attending Provider Active Start: June 18, 2024 Team Status: Active Member Role Status Dates Dr. Rocio Bartlett MD Primary Care Provider Active Start: June 19, 2024 Rocio HUTTON MD Attending Provider Active Start: June 19, 2024 Team Status: Active Member Role Status Dates Dr. Rocio Bartlett MD Primary Care Provider Active Start: June 25, 2024 Rocio HUTTON MD Attending Provider Active Start: June 25, 2024 Team Status: Inactive Member Role Status Dates Dr. Rocio Bartlett MD Primary Care Provider Active Start: June 26, 2024 End: June 26, 2024 Nay Beal JORDAN WORKER, JORDAN WORKER-C Attending Provider Active Start: June 26, 2024 End: June 26, 2024 Team Status: Active Member Role Status Dates Dr. Rocio Bartlett MD Primary Care Provider Active Start: July 02, 2024 Rocio HUTTON MD Attending Provider Active Start: July 02, 2024 Team Status: Active Member Role Status Dates Dr. Rocio Bartlett MD Primary Care Provider Active Start: September 10, 2024 Rocio HUTTON MD Attending Provider Active Start: September 10, 2024 Team Status: Active Member Role Status Dates Dr. Rocio Bartlett MD Primary Care Provider Active Start: September 24, 2024 Rocio HUTTON MD Attending Provider Active Start: September 24, 2024 Team Status: Active Member Role Status Dates Dr. Rocio Bartlett MD Primary Care Provider Active Start: October 01, 2024 Rocio HUTTON MD Attending Provider Active Start: October 01, 2024 Team Status: Active Member Role Status Dates Dr. Rocio Bartlett MD Primary Care Provider Active Start: October 12, 2024 Dr. Srinivasa Salvador MD Emergency Provider Active Start: October 12, 2024 Dr. Palmira Johnson MD Admit Provider Active Star t: October 12, 2024 Dr. Palmira Johnson MD Attending Provider Active Start: October 12, 2024 Team Status: Active Member Role Status Dates Dr. Rocio Bartlett MD Primary Care Provider Active Start: October 12, 2024 Dr. Rocio Bartlett MD Referring Provider Active Start: October 12, 2024 Dr. Peter Thayer DO Attending Provider Active St art: October 12, 2024 Team Status: Inactive Member Role Status Dates Dr. Rocio Bartlett MD Primary Care Provider Active Start: May 28, 2024 End: May 28, 2024 Rocio HUTTON MD Attending Provider Active Start: May 28, 2024 End: May 28, 2024 Team Status: Inactive Member Role Status Dates Dr. Rocio Bartlett MD Primary Care Provider Active Start: May 29, 2024 End: May 29, 2024 Dr. Rocio Bartlett MD Attending Provider Active Start: May 29, 2024 End: May 29, 2024 Team Status: Inactive Member Role Status Dates Dr. Rocio Bartlett MD Primary Care Provider Active Start: June 04, 2024 End: June 04, 2024 Rocio HUTTON MD Attending Provider Active Start: June 04, 2024 End: June 04, 2024 Team Status: Inactive Member Role Status Dates Dr. Rocio Bartlett MD Primary Care Provider Active Start: June 07, 2024 End: June 07, 2024 Nay Beal JORDAN WORKER, JORDAN WORKER-C Attending Provider Active Start: June 07, 2024 End: June 07, 2024 Team Status: Active Member Role Status Dates Dr. Rocio Bartlett MD Primary Care Provider Active Start: June 12, 2024 Dr. Michele Antoine MD Attending Provider Active S tart: June 12, 2024 Dr. Michele Antoine MD Referring Provider Active S tart: June 12, 2024 Team Status: Active Member Role Status Dates Dr. Rocio Bartlett MD Primary Care Provider Active Start: September 17, 2024 Rocio HUTTON MD Attending Provider Active Start: September 17, 2024 Team Status: Active Member Role Status Dates Dr. Rocio Bartlett MD Primary Care Provider Active Start: September 21, 2024 Dr. Rocio Bartlett MD Referring Provider Active Start: September 21, 2024 Dr. Peter Thayer DO Attending Provider Active St art: September 21, 2024 Team Status: Active Member Role Status Dates Dr. Peter Thayer DO Family Provider Active Dr. Peter Thayer DO Primary Care Provider Active Team Status: Active Member Role Status Dates Dr. Peter Thayer , Primary Care Provider Active Dr. Donovan Lamar DO Emergency Provider Active Dr. Michele Montes MD Admit Provider, Attending Pro vider Active Team Status: Active Member Role Status Dates Dr. Peter Thayer , DO Primary Care Provider Active Dr. Donovan Lamar , DO Emergency Provider Active Dr. Michele Montes MD Admit Provider, Other Provide r Active Dr. Florencio Greenfield MD Attending Provider, Other Pro vider Active Dr. Vanessa Matias , DO Other Provider Active Dr. Minda Cm MD Other Provider Active Team Status: Active Member Role Status Dates Dr. Peter Thayer , DO Primary Care Provider Active Dr. Donovan Lamar , DO Emergency Provider Active Dr. Michele Montes MD Admit Provider, Other Provide r Active Dr. Florencio Greenfield MD Other Provider Active Dr. Vanessa Matias , DO Attending Provider, Other Provide r Active Dr. Minda Cm MD Other Provider Active Team Status: Active Member Role Status Dates Dr. Peter Thayer , DO Primary Care Provider Active Dr. Donovan Lamar , DO Emergency Provider Active Dr. Michele Montes MD Admit Provider, Other Provide r Active Dr. Florencio Greenfield MD Attending Provider, Other Pro vider Active Dr. Vanessa Matias , DO Other Provider Active Dr. Minda Cm MD Other Provider Active Dr. Carlos Lacy MD Other Provider Active Dr. Alexei Marley DPM Other Provider Active Team Status: Active Member Role Status Dates Dr. Peter Thayer , DO Primary Care Provider Active Dr. Donovan Lamar , DO Emergency Provider Active Dr. Michele Montes MD Admit Provider, Other Provide r Active Dr. Florencio Greenfield MD Other Provider Active Dr. Vanessa Matias , DO Attending Provider, Other Provide r Active Dr. Minda Cm MD Other Provider Active Dr. Carlos Lacy MD Other Provider Active Dr. Alexei Marely DPM Other Provider Active Team Status: Inactive Member Role Status Dates Dr. Peter Thayer , DO Primary Care Provider Active Dr. Donovan Lamar , DO Emergency Provider Active Dr. Michele Montes MD Admit Provider, Other Provide r Active Dr. Florencio Greenfield MD Other Provider Active Dr. Vanessa Matias , DO Attending Provider Active Dr. Minda Cm MD Other Provider Active Dr. Carlos Lacy MD Other Provider Active Dr. Alexei Marley DPM Other Provider Active Computer Repair Instructor Relationship Specialty Start Date End Date Peter Thayer DO [address] [address] PCP - General Family Medicine 05/21/16 Computer Repair Instructor Relationship Specialty Start Date End Date Peter Thayer DO [address] [place], [place] [address] PCP - General Family Medicine 05/21/16 Computer Repair Instructor Relationship Specialty Start Date End Date Peter Thayer DO [address] [place], [place] [address] PCP - General Family Medicine 05/21/16 Team Status: Active Member Role Status Dates Dr. Peter Thayer , DO Primary Care Provider Active Dr. Donovan Lamar , DO Emergency Provider Active Dr. Michele Montes MD Admit Provider, Other Provide r Active Dr. Florencio Greenfield MD Attending Provider, Other Pro vider Active Dr. Vanessa Matias , DO Referring Provider, Other Provide r Active Dr. Minda Cm MD Other Provider Active Team Status: Active Member Role Status Dates Dr. Peter Thayer DO Primary Care Provider Active Dr. Donovan Lamar , DO Emergency Provider Active Dr. Michele Montes MD Admit Provider, Other Provide r Active Dr. Florencio Greenfield MD Attending Provider, Other Pro vider Active Dr. Vanessa Matias , DO Referring Provider, Other Provide r Active Dr. Minda Cm MD Other Provider Active Dr. Carlos Lacy MD Other Provider Active Dr. Alexei Marley DPM Other Provider Active Team Status: Active Member Role Status Dates Dr. Peter Thayer DO Primary Care Provider Active Dr. Lucian Maloney MD Attending Provider Active Dr. Alexei Marley DPM Referring Provider Active Team Status: Active Member Role Status Dates Dr. Peter Thayer DO Primary Care Provider Active Dr. Lazarus Rojo MD Attending Provider Active Team Status: Active Member Role Status Dates Dr. Peter Thayer , DO Primary Care Provider Active Dr. Lucian Beckett , DO Emergency Provider Active Dr. Terri Nino MD Admit Provider, Other Provider Active Dr. Calista Aburto MD Other Provider Active Dr. Percy Price , DO Attending Provider Active Team Status: Active Member Role Status Dates Dr. Peter Thayer , DO Primary Care Provider Active Dr. Mackenzie Rebollar MD Attending Provider Activ e Team Status: Active Member Role Status Dates Dr. Peter Thayer , DO Primary Care Provider Active Dr. Lucian Beckett , DO Emergency Provider Active Dr. Terri Nino MD Admit Provider, Other Provider Active Dr. Calista Aburto MD Attending Provider, Other Prov ider Active Dr. Minda Cm MD Other Provider Active Dr. Dina Maynard MD Other Provider Active Dr. Ronald Fam , DO Other Provider Active Team Status: Active Member Role Status Dates Dr. Peter Thayer , DO Primary Care Provider Active Dr. Lucian Beckett , DO Emergency Provider Active Dr. Terri Nino MD Admit Provider, Other Provider Active Dr. Calista Aburto MD Other Provider Active Dr. Minda Cm MD Other Provider Active Dr. Dina Maynard MD Attending Provider, Other Prov ider Active Dr. Raphael Curtis , DO Other Provider Active Team Status: Inactive Member Role Status Dates Dr. Peter Thayer , DO Primary Care Provider Active Dr. Lucian Beckett , DO Emergency Provider Active Dr. Terri Nino MD Admit Provider, Other Provider Active Dr. Calista Aburto MD Other Provider Active Dr. Minda Cm MD Other Provider Active Dr. Dina Maynard MD Attending Provider Active Dr. Raphael Curtis , DO Other Provider Active Computer Repair Instructor Relationship Specialty Start Date End Date Peter Thayer DO [address] [address] PCP - General Family Medicine 05/21/16 Computer Repair Instructor Relationship Specialty Start Date End Date Peter Thayer DO [address] [place], [place] [id number] PCP - General Family Medicine 05/21/16 Computer Repair Instructor Relationship Specialty Start Date End Date Peter Thayer DO [address] [place] [address] PCP - General Family Medicine 05/21/16 Computer Repair Instructor Relationship Specialty Start Date End Date Peter Thayer DO [address] [place] [address] PCP - General Family Medicine 05/21/16 Computer Repair Instructor Relationship Specialty Start Date End Date Peter Thayer DO [address] [place], [place] [id number] PCP - General Family Medicine 05/21/16 Team Status: Inactive Member Role Status Dates Dr. Peter Thayer DO Primary Care Provide r, Attending Provider, Referring Provider Active Team Status: Inactive Member Role Status Dates Dr. Peter Thayer DO Primary Care Provider Active Dr. Tolu Sharma MD Emergency Provider Active Team Status: Active Member Role Status Dates Dr. Peter Thayer DO Primary Care Provider Active Rocio HUTTON MD Attending Provider Active Team Status: Active Member Role Status Dates Dr. Peter Thayer DO Primary Care Provider Active Dr. Ranjan Mistry MD Emergency Provider Active Dr. Terri Nino MD Admit Provider, Attending Prov ider Active Team Status: Inactive Member Role Status Dates Dr. Peter Thayer DO Primary Care Provider Active Dr. Tolu Sharma MD Attending Provider, Emergency Provi genesis Active Team Status: Active Member Role Status Dates Dr. Peter Thayer DO Primary Care Provider Active Dr. Ranjan Mistry MD Emergency Provider Active Dr. Terri Nino MD Admit Provider, Other Provider Active Dr. Palmira Johnson MD Attending Provider, Other Provid er Active Team Status: Active Member Role Status Dates Dr. Peter Thayer DO Primary Care Provider Active Dr. Ranjan Mistry MD Emergency Provider Active Dr. Terri Nino MD Admit Provider, Other Provider Active Dr. Palmira Johnson MD Attending Provider, Other Provid er Active Dr. Latha Rosado MD Other Provider Active Team Status: Active Member Role Status Dates Dr. Peter Thayer DO Primary Care Provider Active Dr. Ranjan Mistry MD Emergency Provider Active Dr. Terri Nino MD Admit Provider, Other Provider Active Dr. Latha Rosado MD Other Provider Active Dr. Vanessa Matias DO Attending Provider, Other Provide r Active Dr. Palmira Johnson MD Other Provider Active Team Status: Active Member Role Status Dates Dr. Peter Thayer DO Primary Care Provider Active Dr. Ranjan Mistry MD Emergency Provider Active Dr. Terri Nino MD Admit Provider, Other Provider Active Dr. Latha Rosado MD Other Provider Active Dr. Palmira Johnson MD Attending Provider, Other Provid er Active Dr. Vanessa Matias DO Other Provider Active Team Status: Inactive Member Role Status Dates Dr. Peter Thayer DO Primary Care Provider Active Dr. Rocio Bartlett MD Attending Provider Active Team Status: Inactive Member Role Status Dates Dr. Peter Thayer DO Primary Care Provider Active Nay Beal JORDAN WORKER, JORDAN WORKER-C Attending Provider Active Team Status: Inactive Member Role Status Dates Dr. Peter Thayer DO Primary Care Provider Active Dr. Ranjan Mistry MD Emergency Provider Active Dr. Terri Nino MD Admit Provider, Other Provider Active Dr. Latha Rosado MD Other Provider Active Dr. Palmira Johnson MD Attending Provider, Other Provid er Active Dr. Vanessa Matias DO Other Provider Active Computer Repair Instructor Relationship Specialty Start Date End Date Peter Thayer DO [address] [place] [address] PCP - General Family Medicine 05/21/16 Computer Repair Instructor Relationship Specialty Start Date End Date Peter Thayer DO [address] [address] PCP - General Family Medicine 05/21/16 Computer Repair Instructor Relationship Specialty Start Date End Date Rocio Bartlett [address] [place] [address] PCP - General Internal Medicine 10/27/23 Computer Repair Instructor Relationship Specialty Start Date End Date Peter Thayer [address] [place] [address] PCP - General Family Medicine 05/21/16 Computer Repair Instructor Relationship Specialty Start Date End Date Peter Thayer DO [address] [place] [address] PCP - General Family Medicine 05/21/16 Computer Repair Instructor Relationship Specialty Start Date End Date Flaca Peter [place] [address] [place] [address] PCP - General Family Medicine 05/21/16 Computer Repair Instructor Relationship Specialty Start Date End Date Rocio Bartlett [address] [place] [address] PCP - General Internal Medicine 10/27/23 Computer Repair Instructor Relationship Specialty Start Date End Date Rocio Bartlett [address] [place] [address] PCP - General Internal Medicine 10/27/23 Computer Repair Instructor Relationship Specialty Start Date End Date CorneliusRocio lima [address] [place] [address] PCP - General Internal Medicine 10/27/23 Computer Repair Instructor Relationship Specialty Start Date End Date Peter Thayer DO [address] [place] [address] PCP - General Family Medicine 05/21/16 Computer Repair Instructor Relationship Specialty Start Date End Date Dhruv Rocio Campuzano [address] [place] [address] PCP - General Internal Medicine 10/27/23 Computer Repair Instructor Relationship Specialty Start Date End Date Peter Thayer DO [address] [place] [address] PCP - General Family Medicine 05/21/16 Computer Repair Instructor Relationship Specialty Start Date End Date Peter Thayer DO [address] [place] [address] PCP - General Family Medicine 05/21/16 Computer Repair Instructor Relationship Specialty Start Date End Date Coretta Bartlettsylvie B [address] [place] [address] PCP - General Internal Medicine 10/27/23 Computer Repair Instructor Relationship Specialty Start Date End Date Coretta Bartlettsylvie B [address] [place] [address] PCP - General Internal Medicine 10/27/23 Computer Repair Instructor Relationship Specialty Start Date End Date Coretta Bartltetcharismafernanda B [address] [place] [address] PCP - General Internal Medicine 10/27/23 Computer Repair Instructor Relationship Specialty Start Date End Date Rocio Bartlett [address] [place] [address] PCP - General Internal Medicine 10/27/23 Computer Repair Instructor Relationship Specialty Start Date End Date Rocio Bartlett [address] [place] [address] PCP - General Internal Medicine 10/27/23 Computer Repair Instructor Relationship Specialty Start Date End Date Rocio Bartlett [address] [place] [address] PCP - General Internal Medicine 10/27/23 Computer Repair Instructor Relationship Specialty Start Date End Date Rocio Bartlett [address] [place] [address] PCP - General Internal Medicine 10/27/23 Computer Repair Instructor Relationship Specialty Start Date End Date Peter Thayer DO [address] [facility] [place] [place] [address] PCP - General Family Medicine 05/21/16 Computer Repair Instructor Relationship Specialty Start Date End Date Rocio Bartlett [address] [place] [address] PCP - General Internal Medicine 10/27/23 Team Status: Active Member Role Status Dates Dr. Rocio Bartlett MD Primary Care Provider Active Start: May 18, 2024 Rocio HUTTON MD Attending Provider Active Start: May 18, 2024 Team Status: Inactive Member Role Status Dates Dr. Rocio Bartlett MD Primary Care Provider Active Start: May 21, 2024 End: May 21, 2024 Rocio HUTTON MD Attending Provider Active Start: May 21, 2024 End: May 21, 2024 Team Status: Active Member Role Status Dates Dr. Rocio Bartlett MD Primary Care Provider Active Start: September 03, 2024 Rocio HUTTON MD Attending Provider Active Start: September 03, 2024 Team Status: Active Member Role Status Dates Dr. Rocio Bartlett MD Primary Care Provider Active Start: September 14, 2024 Dr. Rocio Bartlett MD Referring Provider Active Start: September 14, 2024 Dr. Peter Thayer DO Attending Provider Active St art: September 14, 2024 Team Status: Active Member Role Status Dates Dr. Rocio Bartlett MD Primary Care Provider Active Start: September 10, 2024 Rocio HUTTON MD Attending Provider Active Start: September 10, 2024 Rocio HUTTON MD Referring Provider Active Start: September 10, 2024 Team Status: Active Member Role Status Dates Dr. Rocio Bartlett MD Primary Care Provider Active Start: October 19, 2024 Dr. Rocio Bartlett MD Referring Provider Active Start: October 19, 2024 Dr. Peter Thayer DO Attending Provider Active St art: October 19, 2024 Team Status: Active Member Role Status Dates Dr. Rocio Bartlett MD Primary Care Provider Active Start: October 22, 2024 Roico HUTTON MD Attending Provider Active Start: October 22, 2024 Team Status: Active Member Role Status Dates Dr. Rocio Bartlett MD Primary Care Provider Active Start: October 29, 2024 Dr. Ibrahima Kolb DO Emergency Provider Active Start: October 29, 2024 Dr. Percy Price DO Admit Provider Active Start: October 29, 2024 Dr. Percy Price DO Attending Provider Active Start: October 29, 2024 Dr. Percy Price DO Referring Provider Active Start: October 29, 2024 Team Status: Inactive Member Role Status Dates Dr. Rocio Bartlett MD Primary Care Provider Active Start: September 12, 2024 End: September 12, 2024 Nay Tickton JORDAN WORKER, JORDAN WORKER-C Attending Provider Active Start: September 12, 2024 End: September 12, 2024 Team Status: Inactive Member Role Status Dates Dr. Rocio Bartlett MD Primary Care Provider Active Start: October 29, 2024 End: November 01, 2024 Dr. Ibrahima Kolb DO Emergency Provider Active Start: October 29, 2024 End: November 01, 2024 Dr. Percy Price DO Admit Provider Active Start: October 29, 2024 End: November 01, 2024 Dr. Percy Price DO Referring Provider Active Start: October 29, 2024 End: November 01, 2024 Dr. Percy Price DO Other Provider Active Start: October 29, 2024 End: November 01, 2024 Dr. Bryant Day MD Other Provider Active Start: October 29, 2024 End: November 01, 2024 Dr. Josef Storey MD Other Provider Active Start: October 29, 2024 End: November 01, 2024 Dr. Cristi Gann MD Other Provider Active Star t: October 29, 2024 End: November 01, 2024 Dr. Tez Tuttle DO Other Provider Active Start : October 29, 2024 End: November 01, 2024 Dr. Palmira Campo MD Other Provider Active Sta rt: October 29, 2024 End: November 01, 2024 Dr. Elio Soto MD Other Provider Active St art: October 29, 2024 End: November 01, 2024 Dr. Titus Fletcher MD Other Provider Active S tart: October 29, 2024 End: November 01, 2024 Dr. Alysha Cameron MD Other Provider Active Start: October 29, 2024 End: November 01, 2024 Dr. Brien Martinze MD Other Provider Active Start : October 29, 2024 End: November 01, 2024 Dr. Jean Mejía MD Other Provider Active Start: October 29, 2024 End: November 01, 2024 Dr. Paresh Mendoza MD Other Provider Active Start : October 29, 2024 End: November 01, 2024 Dr. Sully Rebolledo MD Other Provider Active Star t: October 29, 2024 End: November 01, 2024 Dr. Dimitris Chacko MD Other Provider Active Sta rt: October 29, 2024 End: November 01, 2024 Dr. Radha Still MD Other Provider Active Sta rt: October 29, 2024 End: November 01, 2024 Dr. Bunny Hughes MD Other Provider Active Star t: October 29, 2024 End: November 01, 2024 Dr. Juaquin York MD Other Provider Active St art: October 29, 2024 End: November 01, 2024 Dr. Americo Bryan MD Other Provider Active Star t: October 29, 2024 End: November 01, 2024 Dr. Ahsan Verdin , Other Provider Active St art: October 29, 2024 End: November 01, 2024 Dr. Doni Gonzalez MD Other Provider Active Start: October 29, 2024 End: November 01, 2024 Dr. Dee Ellsworth MD Other Provider Active St art: October 29, 2024 End: November 01, 2024 Dr. Manuelito Porter DO Other Provider Active Start: October 29, 2024 End: November 01, 2024 Dr. Georgi Sanz MD Other Provider Active Star t: October 29, 2024 End: November 01, 2024 Dr. Alex Martinez MD Other Provider Active Sta rt: October 29, 2024 End: November 01, 2024 Dr. Le Wiggins MD Attending Provider Active Start: October 29, 2024 End: November 01, 2024 Dr. Maurizio Parra DO Other Provider Active S tart: October 29, 2024 End: November 01, 2024 Dr. Minda Cm MD Other Provider Active Start: October 29, 2024 End: November 01, 2024 Team Status: Active Member Role/Relationship Status Dates Dr. Rocio Bartlett MD Primary Care Provider Active Team Status: Inactive Member Role/Relationship Status Dates Dr. Rocio Bartlett MD Primary Care Provider Active Start: July 16, 2024 End: July 16, 2024 Rocio HUTTON MD Attending Provider Active Start: July 16, 2024 End: July 16, 2024 Team Status: Inactive Member Role/Relationship Status Dates Dr. Rocio Bartlett MD Primary Care Provider Active Start: July 18, 2024 End: July 18, 2024 Dr. Rocio Bartlett MD Referring Provider Active Start: July 18, 2024 End: July 18, 2024 Dr. Lamonte Lopez MD Attending Provider Active Start: July 18, 2024 End: July 18, 2024 Team Status: Inactive Member Role/Relationship Status Dates Dr. Rocio Bartlett MD Primary Care Provider Active Start: July 23, 2024 End: July 23, 2024 Rocio HUTTON MD Attending Provider Active Start: July 23, 2024 End: July 23, 2024 Team Status: Inactive Member Role/Relationship Status Dates Dr. Rocio Bartlett MD Primary Care Provider Active Start: July 23, 2024 End: July 23, 2024 Nay Beal JORDAN WORKER, JORDAN WORKER-C Attending Provider Active Start: July 23, 2024 End: July 23, 2024 Team Status: Inactive Member Role/Relationship Status Dates Dr. Rocio Bartlett MD Primary Care Provider Active Start: July 24, 2024 End: July 24, 2024 Dr. Rocio Bartlett MD Attending Provider Active Start: July 24, 2024 End: July 24, 2024 Team Status: Inactive Member Role/Relationship Status Dates Dr. Rocio Bartlett MD Primary Care Provider Active Start: July 26, 2024 End: July 26, 2024 Rocio HUTTON MD Attending Provider Active Start: July 26, 2024 End: July 26, 2024 Team Status: Inactive Member Role/Relationship Status Dates Dr. Rocio Bartlett MD Primary Care Provider Active Start: July 30, 2024 End: July 30, 2024 Rocio HUTTON MD Attending Provider Active Start: July 30, 2024 End: July 30, 2024 Team Status: Inactive Member Role/Relationship Status Dates Dr. Rocio Bartlett MD Primary Care Provider Active Start: August 06, 2024 End: August 06, 2024 Rocio HUTTON MD Attending Provider Active Start: August 06, 2024 End: August 06, 2024 Team Status: Inactive Member Role/Relationship Status Dates Dr. Rocio Bartlett MD Primary Care Provider Active Start: August 13, 2024 End: August 13, 2024 Rocio HUTTON MD Attending Provider Active Start: August 13, 2024 End: August 13, 2024 Team Status: Inactive Member Role/Relationship Status Dates Dr. Rocio Bartlett MD Primary Care Provider Active Start: August 13, 2024 End: August 13, 2024 Nay Beal JORDAN WORKER, JORDAN WORKER-C Attending Provider Active Start: August 13, 2024 End: August 13, 2024 Team Status: Inactive Member Role/Relationship Status Dates Dr. Rocio Bartlett MD Primary Care Provider Active Start: August 20, 2024 End: August 20, 2024 Rocio HUTTON MD Attending Provider Active Start: August 20, 2024 End: August 20, 2024 Rocio HUTTON MD Referring Provider Active Start: August 20, 2024 End: August 20, 2024 Team Status: Inactive Member Role/Relationship Status Dates Dr. Rocio Bartlett MD Primary Care Provider Active Start: August 23, 2024 End: August 23, 2024 MAVERICK Whitten Attending Provider Active St art: August 23, 2024 End: August 23, 2024 Team Status: Inactive Member Role/Relationship Status Dates Dr. Rocio Bartlett MD Primary Care Provider Active Start: August 27, 2024 End: August 27, 2024 Rocio HUTTON MD Attending Provider Active Start: August 27, 2024 End: August 27, 2024 Team Status: Inactive Member Role/Relationship Status Dates Dr. Rocio Bartlett MD Primary Care Provider Active Start: September 03, 2024 End: September 03, 2024 Rocio HUTTON MD Attending Provider Active Start: September 03, 2024 End: September 03, 2024 Team Status: Inactive Member Role/Relationship Status Dates Dr. Rocio Bartlett MD Primary Care Provider Active Start: September 07, 2024 End: September 12, 2024 Dr. Rocio Bartlett MD Referring Provider Active Start: September 07, 2024 End: September 12, 2024 Dr. Peter Thayer DO Attending Provider Active St art: September 07, 2024 End: September 12, 2024 Team Status: Inactive Member Role/Relationship Status Dates Dr. Rocio Bartlett MD Primary Care Provider Active Start: September 07, 2024 End: September 07, 2024 Nay Beal NP JORDAN WORKER-C Attending Provider Active Start: September 07, 2024 End: September 07, 2024 Team Status: Inactive Member Role/Relationship Status Dates Dr. Rocio Bartlett MD Primary Care Provider Active Start: September 10, 2024 End: September 10, 2024 Rocio HUTTON MD Attending Provider Active Start: September 10, 2024 End: September 10, 2024 Rocio HUTTON MD Referring Provider Active Start: September 10, 2024 End: September 10, 2024 Team Status: Inactive Member Role/Relationship Status Dates Dr. Rocio Bartlett MD Primary Care Provider Active Start: September 12, 2024 End: September 12, 2024 Nay Beal NP JORDAN WORKER-C Attending Provider Active Start: September 12, 2024 End: September 12, 2024 Team Status: Inactive Member Role/Relationship Status Dates Dr. Rocio Bartlett MD Primary Care Provider Active Start: September 17, 2024 End: September 17, 2024 Rocio HUTTON MD Attending Provider Active Start: September 17, 2024 End: September 17, 2024 Team Status: Inactive Member Role/Relationship Status Dates Dr. Rocio Bartlett MD Primary Care Provider Active Start: September 24, 2024 End: September 24, 2024 Rocio HUTTON MD Attending Provider Active Start: September 24, 2024 End: September 24, 2024 Team Status: Inactive Member Role/Relationship Status Dates Dr. Rocio Bartlett MD Primary Care Provider Active Start: September 28, 2024 End: October 13, 2024 Dr. Rocio Bartlett MD Referring Provider Active Start: September 28, 2024 End: October 13, 2024 Dr. Peter Thayer DO Attending Provider Active St art: September 28, 2024 End: October 13, 2024 Team Status: Active Member Role/Relationship Status Dates Dr. Rocio Bartlett MD Primary Care Provider Active Start: October 01, 2024 Rocio HUTTON MD Attending Provider Active Start: October 01, 2024 Rocio HUTTON MD Referring Provider Active Start: October 01, 2024 Team Status: Inactive Member Role/Relationship Status Dates Dr. Rocio Bartlett MD Primary Care Provider Active Start: October 03, 2024 End: October 03, 2024 Rocio HUTTON MD Attending Provider Active Start: October 03, 2024 End: October 03, 2024 Team Status: Active Member Role/Relationship Status Dates Dr. Rocio Bartlett MD Primary Care Provider Active Start: October 03, 2024 Rocio HUTTON MD Attending Provider Active Start: October 03, 2024 Team Status: Active Member Role/Relationship Status Dates Dr. Rocio Bartlett MD Primary Care Provider Active Start: October 09, 2024 Rocio HUTTON MD Attending Provider Active Start: October 09, 2024 Team Status: Inactive Member Role/Relationship Status Dates Dr. Rocio Bartlett MD Primary Care Provider Active Start: October 12, 2024 End: October 16, 2024 Dr. Srinivasa Salvador MD Emergency Provider Active Start: October 12, 2024 End: October 16, 2024 Dr. Palmira Johnson MD Admit Provider Active Star t: October 12, 2024 End: October 16, 2024 Dr. Palmira Johnson MD Attending Provider Active Start: October 12, 2024 End: October 16, 2024 Team Status: Active Member Role/Relationship Status Dates Dr. Rocio Bartlett MD Primary Care Provider Active Start: October 12, 2024 Dr. Srinivasa Salvador MD Emergency Provider Active Start: October 12, 2024 Dr. Palmira Johnson MD Admit Provider Active Star t: October 12, 2024 Dr. Palmira Johnson MD Attending Provider Active Start: October 12, 2024 Dr. Palmira Johnson MD Other Provider Active Star t: October 12, 2024 Team Status: Active Member Role/Relationship Status Dates Dr. Rocio Bartlett MD Primary Care Provider Active Start: October 13, 2024 Dr. Radha Green MD Attending Provider Active Start: October 13, 2024 Team Status: Active Member Role/Relationship Status Dates Dr. Rocio Bartlett MD Primary Care Provider Active Start: October 13, 2024 Dr. Srinivasa Salvador MD Emergency Provider Active Start: October 13, 2024 Dr. Palmira Johnson MD Admit Provider Active Star t: October 13, 2024 Dr. Palmira Johsnon MD Attending Provider Active Start: October 13, 2024 Dr. Palmira Johnson MD Other Provider Active Star t: October 13, 2024 Team Status: Active Member Role/Relationship Status Dates Dr. Rocio Barltett MD Primary Care Provider Active Start: October 14, 2024 Dr. Srinivasa Salvador MD Emergency Provider Active Start: October 14, 2024 Dr. Palmira Johnson MD Admit Provider Active Star t: October 14, 2024 Dr. Palmira Johnson MD Attending Provider Active Start: October 14, 2024 Dr. Palmira Johnson MD Other Provider Active Star t: October 14, 2024 Team Status: Active Member Role/Relationship Status Dates Dr. Rocio Bartlett MD Primary Care Provider Active Start: October 15, 2024 Dr. Srinivasa Salvador MD Emergency Provider Active Start: October 15, 2024 Dr. Palmira Johnson MD Admit Provider Active Star t: October 15, 2024 Dr. Palmira Johnson MD Attending Provider Active Start: October 15, 2024 Dr. Palmira Johnson MD Other Provider Active Star t: October 15, 2024 Team Status: Active Member Role/Relationship Status Dates Dr. Rocio Bartlett MD Primary Care Provider Active Start: October 16, 2024 Dr. Srinivasa Salvador MD Emergency Provider Active Start: October 16, 2024 Dr. Palmira Johnson MD Admit Provider Active Star t: October 16, 2024 Dr. Palmira Johnson MD Attending Provider Active Start: October 16, 2024 Dr. Palmira Johnson MD Other Provider Active Star t: October 16, 2024 Team Status: Active Member Role/Relationship Status Dates Dr. Rocio Bartlett MD Primary Care Provider Active Start: October 22, 2024 Rocio HUTTON MD Attending Provider Active Start: October 22, 2024 Rocio HUTTON MD Referring Provider Active Start: October 22, 2024 Team Status: Active Member Role/Relationship Status Dates Dr. Rocio Bartlett MD Primary Care Provider Active Start: October 29, 2024 Rocio HUTTON MD Attending Provider Active Start: October 29, 2024 Team Status: Inactive Member Role/Relationship Status Dates Dr. Rocio Bartlett MD Primary Care Provider Active Start: October 29, 2024 End: November 01, 2024 Dr. Ibrahima Kolb DO Emergency Provider Active Start: October 29, 2024 End: November 01, 2024 Dr. Percy Price DO Admit Provider Active Start: October 29, 2024 End: November 01, 2024 Dr. Percy Price DO Referring Provider Active Start: October 29, 2024 End: November 01, 2024 Dr. Percy Price DO Other Provider Active Start: October 29, 2024 End: November 01, 2024 Dr. Bryant Day MD Other Provider Active Start: October 29, 2024 End: November 01, 2024 Dr. Josef Storey MD Other Provider Active Start: October 29, 2024 End: November 01, 2024 Dr. Cristi Gann MD Other Provider Active Star t: October 29, 2024 End: November 01, 2024 Dr. Tez Tuttle DO Other Provider Active Start : October 29, 2024 End: November 01, 2024 Dr. Palmira Campo MD Other Provider Active Sta rt: October 29, 2024 End: November 01, 2024 Dr. Elio Soto MD Other Provider Active St art: October 29, 2024 End: November 01, 2024 Dr. Titus Fletcher MD Other Provider Active S tart: October 29, 2024 End: November 01, 2024 Dr. Alysha Cameron MD Other Provider Active Start: October 29, 2024 End: November 01, 2024 Dr. Brien Martinez MD Other Provider Active Start : October 29, 2024 End: November 01, 2024 Dr. Jean Mejía MD Other Provider Active Start: October 29, 2024 End: November 01, 2024 Dr. Paresh Mendoza MD Other Provider Active Start : October 29, 2024 End: November 01, 2024 Dr. Sully Rebolledo MD Other Provider Active Star t: October 29, 2024 End: November 01, 2024 Dr. Dimitris Chacko MD Other Provider Active Sta rt: October 29, 2024 End: November 01, 2024 Dr. Radha Still MD Other Provider Active Sta rt: October 29, 2024 End: November 01, 2024 Dr. Bunny Hughes MD Other Provider Active Star t: October 29, 2024 End: November 01, 2024 Dr. Juaquin York MD Other Provider Active St art: October 29, 2024 End: November 01, 2024 Dr. Americo Bryan MD Other Provider Active Star t: October 29, 2024 End: November 01, 2024 Dr. Ahsan Verdin DO Other Provider Active St art: October 29, 2024 End: November 01, 2024 Dr. Doni Gonzalez MD Other Provider Active Start: October 29, 2024 End: November 01, 2024 Dr. Dee Ellsworth MD Other Provider Active St art: October 29, 2024 End: November 01, 2024 Dr. Manuelito Porter DO Other Provider Active Start: October 29, 2024 End: November 01, 2024 Dr. Georgi Sanz MD Other Provider Active Star t: October 29, 2024 End: November 01, 2024 Dr. Alex Martinez MD Other Provider Active Sta rt: October 29, 2024 End: November 01, 2024 Dr. Le Wiggins MD Attending Provider Active Start: October 29, 2024 End: November 01, 2024 Dr. Maurizio Parra DO Other Provider Active S tart: October 29, 2024 End: November 01, 2024 Dr. Minda Cm MD Other Provider Active Start: October 29, 2024 End: November 01, 2024 Team Status: Active Member Role/Relationship Status Dates Dr. Rocio Bartlett MD Primary Care Provider Active Start: October 30, 2024 Dr. Ibrahima Kolb DO Emergency Provider Active Start: October 30, 2024 Dr. Percy Price DO Admit Provider Active Start: October 30, 2024 Dr. Percy Price DO Referring Provider Active Start: October 30, 2024 Dr. Percy Price DO Other Provider Active Start: October 30, 2024 Dr. Bryant Day MD Other Provider Active Start: October 30, 2024 Dr. Josef Storey MD Other Provider Active Start: October 30, 2024 Dr. Cristi Gann MD Other Provider Active Star t: October 30, 2024 Dr. Tez Tuttle DO Attending Provider Active S tart: October 30, 2024 Dr. Tez Tuttle DO Other Provider Active Start : October 30, 2024 Dr. Palmira Campo MD Other Provider Active Sta rt: October 30, 2024 Dr. Elio Soto MD Other Provider Active St art: October 30, 2024 Dr. Titus Fletcher MD Other Provider Active S tart: October 30, 2024 Dr. Alysha Cameron MD Other Provider Active Start: October 30, 2024 Dr. Brien Martinez MD Other Provider Active Start : October 30, 2024 Dr. Jean Mejía MD Other Provider Active Start: October 30, 2024 Dr. Paresh Mendoza MD Other Provider Active Start : October 30, 2024 Dr. Sully Rebolledo MD Other Provider Active Star t: October 30, 2024 Dr. Dimitris Chacko MD Other Provider Active Sta rt: October 30, 2024 Dr. Radha Still MD Other Provider Active Sta rt: October 30, 2024 Dr. Bunny Hughes MD Other Provider Active Star t: October 30, 2024 Dr. Juaquin York MD Other Provider Active St art: October 30, 2024 Dr. Americo Bryan MD Other Provider Active Star t: October 30, 2024 Dr. Ahsan Verdin DO Other Provider Active St art: October 30, 2024 Dr. Doni Gonzalez MD Other Provider Active Start: October 30, 2024 Dr. Dee Ellsworth MD Other Provider Active St art: October 30, 2024 Dr. Manuelito Porter DO Other Provider Active Start: October 30, 2024 Dr. Georgi Sanz MD Other Provider Active Star t: October 30, 2024 Dr. Alex Martinez MD Other Provider Active Sta rt: October 30, 2024 Dr. Maurizio Parra DO Other Provider Active S tart: October 30, 2024 Team Status: Active Member Role/Relationship Status Dates Dr. Rocio Bartlett MD Primary Care Provider Active Start: October 30, 2024 Dr. Ibrahima Kolb DO Emergency Provider Active Start: October 30, 2024 Dr. Percy Price DO Admit Provider Active Start: October 30, 2024 Dr. Percy Price DO Other Provider Active Start: October 30, 2024 Dr. Bryant Day MD Other Provider Active Start: October 30, 2024 Dr. Josef Storey MD Other Provider Active Start: October 30, 2024 Dr. Cristi Gann MD Other Provider Active Star t: October 30, 2024 Dr. Tez Tuttle DO Other Provider Active Start : October 30, 2024 Dr. Palmira Campo MD Other Provider Active Sta rt: October 30, 2024 Dr. Elio Soto MD Other Provider Active St art: October 30, 2024 Dr. Titus Fletcher MD Other Provider Active S tart: October 30, 2024 Dr. Alysha Cameron MD Other Provider Active Start: October 30, 2024 Dr. Brien Martinez MD Other Provider Active Start : October 30, 2024 Dr. Jean Mejía MD Other Provider Active Start: October 30, 2024 Dr. Paresh Mendoza MD Other Provider Active Start : October 30, 2024 Dr. Sully Rebolledo MD Other Provider Active Star t: October 30, 2024 Dr. Dimitris Chacko MD Other Provider Active Sta rt: October 30, 2024 Dr. Radha Still MD Other Provider Active Sta rt: October 30, 2024 Dr. Bunny Hughes MD Other Provider Active Star t: October 30, 2024 Dr. Juaquin York MD Other Provider Active St art: October 30, 2024 Dr. Americo Bryan MD Other Provider Active Star t: October 30, 2024 Dr. Ahsan Verdin , Other Provider Active St art: October 30, 2024 Dr. Doni Gonzalez MD Other Provider Active Start: October 30, 2024 Dr. Dee Ellsworth MD Other Provider Active St art: October 30, 2024 Dr. Manuelito Porter , Other Provider Active Start: October 30, 2024 Dr. Georgi Sanz MD Other Provider Active Star t: October 30, 2024 Dr. Alex Martinez MD Other Provider Active Sta rt: October 30, 2024 Dr. Maurizio Parra DO Attending Provider Active Start: October 30, 2024 Dr. Maurizio Parra DO Other Provider Active S tart: October 30, 2024 Team Status: Active Member Role/Relationship Status Dates Dr. Rocio Bartlett MD Primary Care Provider Active Start: October 31, 2024 Dr. Ibrahima Kolb DO Emergency Provider Active Start: October 31, 2024 Dr. Percy Price DO Admit Provider Active Start: October 31, 2024 Dr. Percy Price DO Referring Provider Active Start: October 31, 2024 Dr. Percy Price DO Other Provider Active Start: October 31, 2024 Dr. Bryant Day MD Other Provider Active Start: October 31, 2024 Dr. Josef Storey MD Other Provider Active Start: October 31, 2024 Dr. Cristi Gann MD Other Provider Active Star t: October 31, 2024 Dr. Tez Tuttle DO Attending Provider Active S tart: October 31, 2024 Dr. Tez Tuttle DO Other Provider Active Start : October 31, 2024 Dr. Palmira Campo MD Other Provider Active Sta rt: October 31, 2024 Dr. Elio Soto MD Other Provider Active St art: October 31, 2024 Dr. Titus Fletcher MD Other Provider Active S tart: October 31, 2024 Dr. Alysha Cameron MD Other Provider Active Start: October 31, 2024 Dr. Brien Martinez MD Other Provider Active Start : October 31, 2024 Dr. Jean Mejía MD Other Provider Active Start: October 31, 2024 Dr. Paresh Mendoza MD Other Provider Active Start : October 31, 2024 Dr. Sully Rebolledo MD Other Provider Active Star t: October 31, 2024 Dr. Dimitris Chacko MD Other Provider Active Sta rt: October 31, 2024 Dr. Radha Still MD Other Provider Active Sta rt: October 31, 2024 Dr. Bunny Hughes MD Other Provider Active Star t: October 31, 2024 Dr. Juaquin York MD Other Provider Active St art: October 31, 2024 Dr. Americo Bryan MD Other Provider Active Star t: October 31, 2024 Dr. Ahsan Verdin , Other Provider Active St art: October 31, 2024 Dr. Doni Gonzalez MD Other Provider Active Start: October 31, 2024 Dr. Dee Ellsworth MD Other Provider Active St art: October 31, 2024 Dr. Manuelito Porter DO Other Provider Active Start: October 31, 2024 Dr. eGorgi Sanz MD Other Provider Active Star t: October 31, 2024 Dr. Alex Martinez MD Other Provider Active Sta rt: October 31, 2024 Dr. Le Wiggins MD Other Provider Active Star t: October 31, 2024 Dr. Maurizio Parra DO Other Provider Active S tart: October 31, 2024 Team Status: Active Member Role/Relationship Status Dates Dr. Rocio Bartlett MD Primary Care Provider Active Start: October 31, 2024 Dr. Ibrahima Kolb DO Emergency Provider Active Start: October 31, 2024 Dr. Percy Price , DO Admit Provider Active Start: October 31, 2024 Dr. Percy Price DO Other Provider Active Start: October 31, 2024 Dr. Bryant Day MD Other Provider Active Start: October 31, 2024 Dr. Josef Storey MD Other Provider Active Start: October 31, 2024 Dr. Cristi Gann MD Other Provider Active Star t: October 31, 2024 Dr. Tez Tuttle , Other Provider Active Start : October 31, 2024 Dr. Palmira Campo MD Other Provider Active Sta rt: October 31, 2024 Dr. Elio Soto MD Other Provider Active St art: October 31, 2024 Dr. Titus Fletcher MD Other Provider Active S tart: October 31, 2024 Dr. Alysha Cameron MD Other Provider Active Start: October 31, 2024 Dr. Brien Martinez MD Other Provider Active Start : October 31, 2024 Dr. Jean Mejía MD Other Provider Active Start: October 31, 2024 Dr. Paresh Mendoza MD Other Provider Active Start : October 31, 2024 Dr. Sully Rebolledo MD Other Provider Active Star t: October 31, 2024 Dr. Dimitris Chacko MD Other Provider Active Sta rt: October 31, 2024 Dr. Radha Still MD Other Provider Active Sta rt: October 31, 2024 Dr. Bunny Hughes MD Other Provider Active Star t: October 31, 2024 Dr. Juaquin York MD Other Provider Active St art: October 31, 2024 Dr. Americo Bryan MD Other Provider Active Star t: October 31, 2024 Dr. Ahsan Verdin , Other Provider Active St art: October 31, 2024 Dr. Doni Gonzalez MD Other Provider Active Start: October 31, 2024 Dr. Dee Ellsworth MD Other Provider Active St art: October 31, 2024 Dr. Manuelito Porter , Other Provider Active Start: October 31, 2024 Dr. Georgi Sanz MD Other Provider Active Star t: October 31, 2024 Dr. Alex Martinez MD Other Provider Active Sta rt: October 31, 2024 Dr. Le Wiggins MD Attending Provider Active Start: October 31, 2024 Dr. Le Wiggins MD Other Provider Active Star t: October 31, 2024 Dr. Maurizio Parra DO Other Provider Active S tart: October 31, 2024 Team Status: Active Member Role/Relationship Status Dates Dr. Rocio Bartlett MD Primary Care Provider Active Start: November 01, 2024 Dr. Ibrahima Kolb , Emergency Provider Active Start: November 01, 2024 Dr. Percy Price , Admit Provider Active Start: November 01, 2024 Dr. Percy Price DO Referring Provider Active Start: November 01, 2024 Dr. Percy Price DO Other Provider Active Start: November 01, 2024 Dr. Bryant Day MD Other Provider Active Start: November 01, 2024 Dr. Josef Storey MD Other Provider Active Start: November 01, 2024 Dr. Cristi Gann MD Other Provider Active Star t: November 01, 2024 Dr. Tez Tuttle , Attending Provider Active S tart: November 01, 2024 Dr. Tez Tuttle , Other Provider Active Start : November 01, 2024 Dr. Palmira Campo MD Other Provider Active Sta rt: November 01, 2024 Dr. Elio Soto MD Other Provider Active St art: November 01, 2024 Dr. Titus Fletcher MD Other Provider Active S tart: November 01, 2024 Dr. Alysha Cameron MD Other Provider Active Start: November 01, 2024 Dr. Brien Martinez MD Other Provider Active Start : November 01, 2024 Dr. Jean Mejía MD Other Provider Active Start: November 01, 2024 Dr. Paresh Mendoza MD Other Provider Active Start : November 01, 2024 Dr. Sully Rebolledo MD Other Provider Active Star t: November 01, 2024 Dr. Dimitris Chacko MD Other Provider Active Sta rt: November 01, 2024 Dr. Radha Still MD Other Provider Active Sta rt: November 01, 2024 Dr. Bunny Hughes MD Other Provider Active Star t: November 01, 2024 Dr. Juaquin York MD Other Provider Active St art: November 01, 2024 Dr. Americo Bryan MD Other Provider Active Star t: November 01, 2024 Dr. Ahsan Verdin , Other Provider Active St art: November 01, 2024 Dr. Doni Gonzalez MD Other Provider Active Start: November 01, 2024 Dr. Dee Ellsworth MD Other Provider Active St art: November 01, 2024 Dr. Manuelito Porter DO Other Provider Active Start: November 01, 2024 Dr. Georgi Sanz MD Other Provider Active Star t: November 01, 2024 Dr. Alex Martinez MD Other Provider Active Sta rt: November 01, 2024 Dr. Le Wiggins MD Other Provider Active Star t: November 01, 2024 Dr. Maurizio Parra DO Other Provider Active S tart: November 01, 2024 Dr. Minda Cm MD Other Provider Active Start: November 01, 2024 Team Status: Active Member Role/Relationship Status Dates Dr. Rocio Bartlett MD Primary Care Provider Active Start: November 01, 2024 Dr. Ibrahima Kolb DO Emergency Provider Active Start: November 01, 2024 Dr. Percy Price DO Admit Provider Active Start: November 01, 2024 Dr. Percy Price DO Other Provider Active Start: November 01, 2024 Dr. Bryant Day MD Other Provider Active Start: November 01, 2024 Dr. Josef Storey MD Other Provider Active Start: November 01, 2024 Dr. Cristi Gann MD Other Provider Active Star t: November 01, 2024 Dr. Tez Tuttle DO Other Provider Active Start : November 01, 2024 Dr. Palmira Campo MD Other Provider Active Sta rt: November 01, 2024 Dr. Elio Soto MD Other Provider Active St art: November 01, 2024 Dr. Titus Fletcher MD Other Provider Active S tart: November 01, 2024 Dr. Alysha Cameron MD Other Provider Active Start: November 01, 2024 Dr. Brien Martinez MD Other Provider Active Start : November 01, 2024 Dr. Jean Mejía MD Other Provider Active Start: November 01, 2024 Dr. Paresh Mendoza MD Other Provider Active Start : November 01, 2024 Dr. Sully Rebolledo MD Other Provider Active Star t: November 01, 2024 Dr. Dimitris Chacko MD Other Provider Active Sta rt: November 01, 2024 Dr. Radha Still MD Other Provider Active Sta rt: November 01, 2024 Dr. Bunny Hughes MD Other Provider Active Star t: November 01, 2024 Dr. Juaquin York MD Other Provider Active St art: November 01, 2024 Dr. Americo Bryan MD Other Provider Active Star t: November 01, 2024 Dr. Ahsan Verdin , Other Provider Active St art: November 01, 2024 Dr. Doni Gonzalez MD Other Provider Active Start: November 01, 2024 Dr. Dee Ellsworth MD Other Provider Active St art: November 01, 2024 Dr. Manuelito Porter DO Other Provider Active Start: November 01, 2024 Dr. Georgi Sanz MD Other Provider Active Star t: November 01, 2024 Dr. Alex Martinez MD Other Provider Active Sta rt: November 01, 2024 Dr. Le Wiggins MD Attending Provider Active Start: November 01, 2024 Dr. Le Wiggins MD Other Provider Active Star t: November 01, 2024 Dr. Maurizio Parra DO Other Provider Active S tart: November 01, 2024 Dr. Minda Cm MD Other Provider Active Start: November 01, 2024 Team Status: Active Member Role/Relationship Status Dates Dr. Rocio Bartlett MD Primary Care Provider Active Start: November 05, 2024 Rocio HUTTON MD Attending Provider Active Start: November 05, 2024 Team Status: Active Member Role/Relationship Status Dates Dr. Rocio Bartlett MD Primary Care Provider Active Start: November 07, 2024 ASHLEY Patricia Attending Provider Active Start: November 07, 2024 Team Status: Inactive Member Role/Relationship Status Dates Dr. Rocio Bartlett MD Primary Care Provider Active Start: November 09, 2024 End: November 12, 2024 Dr. Rocio Bartlett MD Referring Provider Active Start: November 09, 2024 End: November 12, 2024 Dr. Peter Thayer DO Attending Provider Active St art: November 09, 2024 End: November 12, 2024 Source Comments (unrecognize d section and content) In the event this informatio n is protected by the Federal Confidentiality of Alcohol and Drug Abuse Patient Records regulations: The Federal rules restrict any use of the information to criminally investigate or prosecute any alcohol or drug abuse patient.[facility] the event this information is protected by the Federal Confidentiality of Alcohol and Drug Abuse Patient Records regulations: The Federal rules restrict any use of the information to criminally investigate or prosecute any alcohol or drug abuse patient.[facility] the event this information is protected by the Federal Confidentiality of Alcohol and Drug Abuse Patient Records regulations: The Federal rules restrict any use of the information to criminally investigate or prosecute any alcohol or drug abuse patient.[facility] the event this information is protected by the Federal Confidentiality of Alcohol and Drug Abuse Patient Records regulations: The Federal rules restrict any use of the information to criminally investigate or prosecute any alcohol or drug abuse patient.[facility]In the event this information is protected by the Federal Confidentiality of Alcohol and Drug Abuse Patient Records regulations: The Federal rules restrict any use of the information to criminally investigate or prosecute any alcohol or drug abuse patient.[facility] HospitalIn the event this information is protected by the Federal Confidentiality of Alcohol and Drug Abuse Patient Records regulations: The Federal rules restrict any use of the information to criminally investigate or prosecute any alcohol or drug abuse patient.[facility]In the event this information is protected by the Federal Confidentiality of Alcohol and Drug Abuse Patient Records regulations: The Federal rules restrict any use of the information to criminally investigate or prosecute any alcohol or drug abuse patient.[facility] HospitalIn the event this information is protected by the Federal Confidentiality of Alcohol and Drug Abuse Patient Records regulations: The Federal rules restrict any use of the information to criminally investigate or prosecute any alcohol or drug abuse patient.[facility] HospitalIn the event this information is protected by the Federal Confidentiality of Alcohol and Drug Abuse Patient Records regulations: The Federal rules restrict any use of the information to criminally investigate or prosecute any alcohol or drug abuse patient.[facility] HospitalIn the event this information is protected by the Federal Confidentiality of Alcohol and Drug Abuse Patient Records regulations: The Federal rules restrict any use of the information to criminally investigate or prosecute any alcohol or drug abuse patient.[facility] HospitalIn the event this information is protected by the Federal Confidentiality of Alcohol and Drug Abuse Patient Records regulations: The Federal rules restrict any use of the information to criminally investigate or prosecute any alcohol or drug abuse patient.[facility] HospitalIn the event this information is protected by the Federal Confidentiality of Alcohol and Drug Abuse Patient Records regulations: The Federal rules restrict any use of the information to criminally investigate or prosecute any alcohol or drug abuse patient.[facility] HospitalIn the event this information is protected by the Federal Confidentiality of Alcohol and Drug Abuse Patient Records regulations: The Federal rules restrict any use of the information to criminally investigate or prosecute any alcohol or drug abuse patient.[facility] HospitalIn the event this information is protected by the Federal Confidentiality of Alcohol and Drug Abuse Patient Records regulations: The Federal rules restrict any use of the information to criminally investigate or prosecute any alcohol or drug abuse patient.[facility] HospitalIn the event this information is protected by the Federal Confidentiality of Alcohol and Drug Abuse Patient Records regulations: The Federal rules restrict any use of the information to criminally investigate or prosecute any alcohol or drug abuse patient.[facility] HospitalIn the event this information is protected by the Federal Confidentiality of Alcohol and Drug Abuse Patient Records regulations: The Federal rules restrict any use of the information to criminally investigate or prosecute any alcohol or drug abuse patient.[facility] HospitalIn the event this information is protected by the Federal Confidentiality of Alcohol and Drug Abuse Patient Records regulations: The Federal rules restrict any use of the information to criminally investigate or prosecute any alcohol or drug abuse patient.[facility] HospitalIn the event this information is protected by the Federal Confidentiality of Alcohol and Drug Abuse Patient Records regulations: The Federal rules restrict any use of the information to criminally investigate or prosecute any alcohol or drug abuse patient.[facility] HospitalIn the event this information is protected by the Federal Confidentiality of Alcohol and Drug Abuse Patient Records regulations: The Federal rules restrict any use of the information to criminally investigate or prosecute any alcohol or drug abuse patient.[facility] HospitalIn the event this information is protected by the Federal Confidentiality of Alcohol and Drug Abuse Patient Records regulations: The Federal rules restrict any use of the information to criminally investigate or prosecute any alcohol or drug abuse patient.[facility] HospitalIn the event this information is protected by the Federal Confidentiality of Alcohol and Drug Abuse Patient Records regulations: The Federal rules restrict any use of the information to criminally investigate or prosecute any alcohol or drug abuse patient.[facility] HospitalIn the event this information is protected by the Federal Confidentiality of Alcohol and Drug Abuse Patient Records regulations: The Federal rules restrict any use of the information to criminally investigate or prosecute any alcohol or drug abuse patient.[facility] Reason for Visit (unrecogniz ed section and content) Reason Comments Critical Care Transport Reason Comments Results Reason Comments CoPat Stop Reason Comments Infection Follow Up Reason Comments CoPat Start Reason Comments Patient Update Specialty Diagnoses / Procedures Referred By Contac t Referred To Contact [facility] [address] [place] [address] Referral ID Status Reason Start Date Expiration Date V isits Requested Visits Authorized [id number] New Request 03/21/2023 05/20/2023 Reason Comments Urinary Retention Reason Comments Nurse Visit Schedule Change Specialty Diagnoses / Procedures Referred By Contac t Referred To Contact Diagnoses Pneumonia, bacterial Pneumonia Procedures . Ellyn De León MD [address] [place] [address] [facility] [address] [place] [id number] Referral ID Status Reason Start Date Expiration Date Visits Re quested Visits Authorized [id number] 1 Reason Comments Nurse Visit Reason Comments Radiology Pre Procedure Instructions Sup rapubic catheter placement Reason Comments New Patient Reason Onset Date Comments Other 03/09/2024 MRI scheduling Reason Comments Scheduling SPT Placement Reason Comments Consult suprapubic cath alanis ge 1st Reason Comments Scheduling SPT Reschedule Reason Onset Date Comments Orders 04/20/2024 MRI order Reason Onset Date Comments Appointment Request 06/15/2024 Surgery Scheduling 06/15/2024 Reason Comments Appointment Goals (unrecognized section and content) Goals may be documented in a n alternate sectionGoals may be documented in an alternate section No data available for this sectionGoals may be documented in an alternate sectionGoals may be documented in an alternate sectionGoals may be documented in an alternate sectionGoals may be documented in an alternate section Scheduled Active and Recently Administ ered Medications (unrecognized section and content) Medication Order 11/02/2023 11/03/2023 11/04/2023 amLODIPine (Norvasc) tablet 10 mg 10 mg, Oral, Daily, First dose on Tue10/28/23 at 0900 0854 (Given - Provider: Madina Ballard RN) 0851 (Given - Provider: Ingris Zazueta RN) 0752 (Given - Provider: Ingris Zazueta, RN) apixaban (Eliquis) tablet 5 mg 5 mg, Oral, 2 times daily, First dose on Tue10/28/23 at 0900, Anticoagulant 0854 (Given - Provider: Madina Ballard RN)2045 (Given - Provider: Sarah Thomas RN) 0851 (Given - Provider: Ingris Zazueta, RN)2129 (Given - Provider: Radha Mir RN) 0752 (Given - Provider: Ingris Zazueta, RN) carvedilol (Coreg) tablet 12.5 mg 12.5 mg, Oral, 2 times daily with meals, First dose on Tue10/28/23 at 0800 0854 (Given - Provider: Madina Ballard RN)1613 (Given - Provider: Madina Ballard RN) 0850 (Given - Provider: Ingris Zazueta RN)1735 (Given - Provider: Ingris Zazueta, RN) 0757 (Given - Provider: Ingris Zazueta, RN)1608 (Given - Provider: Ingris Zazueta, RN) cetirizine (ZyrTEC) tablet 10 mg 10 mg, Oral, Daily, First dose on Tue10/28/23 at 0900, Substituted for Loratadine (CLARITIN). 1142 (Given - Provider: Madina Ballard RN) 0850 (Given - Provider: Ingris Zazueta RN) 0756 (Given - Provider: Ingris Zazueta RN) ertapenem (INVanz) 1,000 mg in sodium chloride 0.9 % 50 mL IVPB Mini-Bag Plus 1,000 mg, IntraVENous, at 100 mL/hr, Administer over 30 Minutes, Every 24 hours, First dose on Tue10/28/23 at 1615, Mini-Bag Plus bag, Suspected Indication (Select all that apply): Urinary Tract Infection, Pneumonia (HAP) 1623 (New Bag - Provider: Madina Ballard RN)1653 (Stopped - Provider: Madina Ballard RN) 1605 (New Bag - Provider: Ingris Zazueta RN)1635 (Stopped - Provider: Ingris Zazueta RN) 1608 (New Bag - Provider: Ingris Zazueta RN)1638 (Stopped - Provider: Ingris Zazueta RN) gabapentin (Neurontin) capsule 100 mg 100 mg, Oral, 2 times daily, First dose on Tue10/28/23 at 0900 0854 (Given - Provider: Madina Ballard RN)2045 (Given - Provider: Sarah Thomas RN) 0850 (Given - Provider: Ingris Zazueta RN)2129 (Given - Provider: Radha Mir, KATHRYN) 0752 (Given - Provider: Ingris Zazueta, RN) guaiFENesin (Mucinex) 12 hr tablet 1,200 mg 1,200 mg, Oral, 2 times daily, First dose on Tue10/28/23 at 0030, Administer with plenty of fluids to ensure proper action. Do not crush, chew, or split. 0854 (Given - Provider: Madina Ballard RN)2044 (Given - Provider: Sarah Thomas RN) 0851 (Given - Provider: Ingris Zazueta, RN)2130 (Given - Provider: Radha Mir, RN) 0756 (Given - Provider: Ingris Zazueta, RN) heparin flush injection 250 Units 250 Units, IntraCATHeter, Every 12 hours, First dose on Tue10/31/23 at 1715, Each lumen. Do NOT administer to lumens with continuous fluids currently infusing. Line Care. Use 10 mL or larger syringe. 0633 (Given - Provider: Erika Gaffney, RN)1712 (Given - Provider: Madina Ballard RN) 0515 (Given - Provider: Sarah Thomas RN)1606 (Given - Provider: Ingris Zazueta, RN) 0532 (Given - Provider: Radha Mir, RN)1517 (Given - Provider: Ingris Zazueta, RN) insulin glargine (Lantus) injection 24 Units 24 Units, SubCUTAneous, Every morning, First dose on Tue10/28/23 at 0900 0855 (Given - Provider: Madina Ballard RN) 0942 (Given - Provider: Ingris Zazueta, RN) 0909 (Given - Provider: Ingris Zazueta RN) Insulin Lispro (Humalog) injection 0-6 Units(Linked Group 1) 0-6 Units, SubCUTAneous, 3 times daily with meals, First dose on Tue10/28/23 at 0800, Low Dose Correction Algorithm Glucose: Dose: LESS than 139 No Insulin 140-199 1 Unit 200-249 2 Units 250-299 3 Units 300-349 4 Units 350-400 5 Units Above 400 6 Units 0855 (Given - Provider: Madina Ballard RN)1142 (Given - Provider: Madina Ballard RN)1725 (Given - Provider: Madina Ballard RN) 0942 (Given - Provider: Ingris Zazueta, RN)1201 (Given - Provider: Ingris Zazueat, RN)1738 (Given - Provider: Ingris Zazueta, RN) 0900 (Not Given - Provider: Ingris Zazueta RN - Reason: See Provider Order)1216 (Given - Provider: Ingris Zazueta RN)1700 (Not Given - Provider: Ingris Zazueta RN - Reason: Patient/family refused) Insulin Lispro (Humalog) injection 0-6 Units(Linked Group 1) 0-6 Units, SubCUTAneous, Nightly, First dose on Tue10/27/23 at 2215, If continuous tube feedings/TPN/NPO, give correction dose based on result, no reduction in dose. If eating or bolus tube feeding: Low Dose Correction Algorithm Glucose: Dose: LESS than 139 No Insulin 140-199 1 Unit 200-249 2 Units 250-299 3 Units 300-349 4 Units 350-400 5 Units Above 400 6 Units 2045 (Given - Provider: Sarah Thomas RN) 2128 (Given - Provider: Radha Mir, RN) iron sucrose (Venofer) 200 mg in sodium chloride 0.9 % 100 mL IVPB 200 mg, IntraVENous, at 300 mL/hr, Administer over 20 Minutes, Every 24 hours, First dose on Cora 11/03/23 at 1600, For 3 doses, Observe for signs and symptoms of hypersensitivity and/or anaphylactic-type reactions per institutional standard during and following administration. 1641 (New Bag - Provider: Ingris Zazueta RN)1701 (Stopped - Provider: Ingris Zazueta RN) 1517 (New Bag - Provider: Ingris Zazueta, RN)1537 (Stopped - Provider: Ingris Zazueta RN) melatonin tablet 6 mg 6 mg, Oral, Nightly, First dose on Cora 10/27/23 at 2215 0001 (Given - Provider: Sarah Thomas RN)2100 (Not Given - Provider: Radha Mir, KATHRYN - Reason: Patient/family refused) morphine CR (MS Contin) 12 hr tablet 30 mg 30 mg, Oral, Every 12 hours scheduled (2 times per day), First dose on Tue10/31/23 at 2100, Do not crush, chew, or split. 0854 (Given - Provider: Madina Ballard RN)2044 (Given - Provider: Sarah Thomas RN) 0850 (Given - Provider: Ingris Zazueta RN)2128 (Given - Provider: Radha Mir, RN) 0752 (Given - Provider: Ingris Zazueta, RN) pantoprazole (ProtoNix) EC tablet 40 mg 40 mg, Oral, Daily before breakfast, First dose on Tue10/28/23 at 0600, Do not crush, chew, or split. 0636 (Given - Provider: Erika Gaffney RN) 0601 (Given - Provider: Sarah Thomas RN) 0532 (Given - Provider: Radha Mir, KATHRYN) senna-docusate sodium (Senokot-S) 8.6-50 MG tablet 2 tablet 2 tablet, Oral, Nightly, First dose on Tue10/28/23 at 2100 2043 (Given - Provider: Sarah Thomas RN) 2128 (Given - Provider: Radha Mir, KATHRYN) sodium chloride 0.9% (NS) flush 10 mL 10 mL, IntraCATHeter, Every 12 hours, First dose on 10/31/23 at 1715, Administer to each lumen, regardless of whether or not fluids are infusing. Line Care. Use 10 mL or larger syringe. 0633 (Given - Provider: Erika Gaffney RN)1623 (Given - Provider: Madina Ballard RN) 0515 (Given - Provider: Sarah Thomas, RN)1607 (Given - Provider: Ingris Zazueta RN) 0515 (Given - Provider: Radha Mir, KATHRYN)1517 (Given - Provider: Ingris Zazueta RN) sodium chloride 0.9% (NS) flush 5-40 mL 5-40 mL, IntraVENous, Every 12 hours, First dose on Cora 10/27/23 at 2215, For Line Patency: Peripheral IV = 5 mL; Midline or Central Line = 10 mL/lumen. If following IV push medication, administer flush at same rate as the IV push. Flush volume is determined by type of infusion therapy being given. For non-viscous solutions use: Peripheral IV = 5 mL Midline or Central Line = 10 mL/lumen For viscous solutions (i.e. blood components, parenteral nutrition, contrast media, or after obtaining blood sample) use: Peripheral IV = 10 mL Midline or Central Line = 20 mL/lumen 0917 (Given - Provider: Madina Ballard RN)2215 (Given - Provider: Sarah Thomas RN) 0851 (Given - Provider: Ingris Zazueta, RN)2130 (Given - Provider: Radha Mir, RN) 0752 (Given - Provider: Ingris Zazueta RN) PRN Medication Order 11/02/2023 11/03/2023 11/04/2023 acetaminophen (Tylenol) suppository 650 mg(Linked Group 2) 650 mg, Rectal, Every 6 hours PRN, mild pain (1-3), fever, For temp greater than 100.4 F (38 C), Starting on Cora 10/27/23 at 2157, Administer if oral route cannot be used. Maximum dose of acetaminophen is 4000 mg from all sources in 24 hours. acetaminophen (Tylenol) tablet 650 mg(Linked Group 2) 650 mg, Oral, Every 6 hours PRN, mild pain (1-3), fever, For temp greater than 100.4 F (38 C), Starting on Tue10/27/23 at 2157, Maximum dose of acetaminophen is 4000 mg from all sources in 24 hours. albuterol (2.5 MG/3ML) 0.083% nebulizer solution 2.5 mg 2.5 mg, Nebulization, Every 4 hours PRN, wheezing, shortness of breath, Starting on Tue10/27/23 at 2203 carboxymethylcellulose PF (Refresh Plus) 0.5 % ophthalmic solution 1 drop 1 drop, Both Eyes, 2 times daily PRN, dry eyes, Starting on Tue10/28/23 at 0457 0848 (Given - Provider: Ingris Zazueta RN) dextrose 5 % infusion 100 mL/hr, IntraVENous, PRN, Blood sugar less than 70mg/dL, Starting on Tue10/27/23 at 2202, Start infusion following administration of dextrose 50% or glucagon. dextrose 50 % solution 12.5 g 12.5 g, IntraVENous, PRN, low blood sugar, Blood glucose less than 70 mg/dL and patient NOT ALERT or NPO., Starting on Tue10/27/23 at 2202, If patient does not respond within 5 minutes, repeat dose x1. Start D5W at 100 mL/hour until ordering provider can be reached. Repeat blood glucose in 15 minutes. If blood glucose is less than 70 mg/dL, repeat treatment and recheck blood glucose in 15 minutes x2. If using Glucostabilizer, dose as instructed per system. diphenhydrAMINE (BENADryl) tablet/capsule 25 mg 25 mg, Oral, Every 8 hours PRN, itching, Starting on Tue10/31/23 at 1643 1240 (Given - Provider: Madina Ballard RN) 0001 (Given - Provider: Sarah Thomas RN) 0143 (Given - Provider: Radha Mir RN) glucagon (human recombinant) injection 1 mg 1 mg, IntraMUSCular, PRN, low blood sugar, Blood glucose less than 70 mg/dL and patient NOT ALERT or NPO and does not have IV access., Starting on Tue10/27/23 at 2202, After administration, attempt intravenous access and start D5W at 100 mL/hr. Repeat blood glucose in 15 minutes x2 and notify provider. glucose oral gel 15 g 15 g, Oral, As needed, low blood sugar, Starting on Cora 10/27/23 at 2202, If blood glucose less than 50 mg/dL and patient ALERT and NOT NPO, give 2 tubes glucose gel. If blood glucose less than 70 mg/dL and patient ALERT and NOT NPO, give 1 tube glucose gel. Repeat blood glucose in 15 minutes. If blood glucose is less than 70 mg/dL, repeat treatment and recheck blood glucose in 15 minutes x2 and notify provider. heparin flush injection 250 Units 250 Units, IntraCATHeter, PRN, line care, after blood draws and after infusion, Starting on Tue10/31/23 at 1707, Do NOT administer to lumens with continuous fluids currently infusing. Line Care. Use 10 mL or larger syringe. methocarbamol (Robaxin) tablet 1,000 mg 1,000 mg, Oral, Every 8 hours PRN, muscle spasms, Starting on Tue10/28/23 at 0458 0636 (Given - Provider: Erika Gaffney, RN)1614 (Given - Provider: Madina Ballard, RN) 0001 (Given - Provider: Sarah Thomas, RN)1201 (Given - Provider: Ingris Zazueta, RN)2130 (Given - Provider: Radha Mir, RN) 1218 (Given - Provider: Ingris Zazueta, RN) morphine injection 4 mg (COMPLETED) 4 mg, IntraVENous, Once PRN, moderate pain (4-6), For transport to outside care facility, Starting on Tue11/04/23 at 1459, For 1 dose, If oral and IV narcotics ordered, use oral first and only use IV if oral is ineffective or cannot take oral. Do Not give oral and IV within 1 hour of each other unless specifically ordered. 1839 (Given - Provider: Ingris Zazueta, RN) naloxone (Narcan) injection 0.4 mg 0.4 mg, IntraVENous, Every 5 min PRN, opioid reversal, respiratory depression, Starting on Cora 10/27/23 at 2348, +++ For RR <10, pinpoint pupils, over sedation for opioid reversal - MUST notify career education teacher provider immediately after first dose, may give IM or SQ if no IV access +++ ondansetron (Zofran) injection 4 mg(Linked Group 3) 4 mg, IntraVENous, Every 6 hours PRN, nausea, vomiting, Starting on Tue10/27/23 at 2157, 1st Line. Give IV if patient is unable to take orally. If inadequate response within 60 minutes, proceed to next-line agent or contact provider if no further options ordered. ondansetron ODT (Zofran-ODT) disintegrating tablet 4 mg(Linked Group 3) 4 mg, Oral, Every 8 hours PRN, nausea, vomiting, Starting on Cora 10/27/23 at 2157, 1st Line. If inadequate response within 60 minutes, proceed to next-line agent or contact provider if no further options ordered. Patient should allow tablet to dissolve on tongue. Do not remove from blister pack until just before administering. oxyCODONE (Roxicodone) immediate release tablet 10 mg 10 mg, Oral, Every 6 hours PRN, moderate pain (4-6), severe pain (7-10), Starting on Cora 10/27/23 at 2348 0017 (Given - Provider: Erika Gaffney RN)0636 (Given - Provider: Erika Gaffney RN)1240 (Given - Provider: Madina Ballard RN)2045 (Given - Provider: Sarah Thomas RN) 0253 (Given - Provider: Sarah Thomas, KATHRYN)0942 (Given - Provider: Ingris Zazueta, RN)1735 (Given - Provider: Ingris Zazueta, KATHRYN) 0144 (Given - Provider: Radha Mir RN)1137 (Given - Provider: Ingris Zazueta, RN)1724 (Given - Provider: Ingris Zazueta, RN) polyethylene glycol (PEG) 3350 (Miralax) packet 17 g 17 g, Oral, Daily PRN, constipation, Starting on Cora 10/27/23 at 2157, 1st line for treatment of constipation - give scheduled if no bowel movement in past 24 hours. 0945 (Given - Provider: Ingris Zazueta RN) 0752 (Given - Provider: Ingris Zazueta, RN) sodium chloride 0.9 % infusion 5-250 mL/hr, IntraVENous, PRN, if patient receiving piggyback infusions and maintenance fluids are not ordered OR KVO fluids to protect IV site / prevent frequent line interruptions / long duration, Starting on Cora 10/27/23 at 2157, For piggyback infusion, administer at same rate as piggyback for a total of 25 mL. Enter 25 mL into dose field and piggyback rate into rate field of order. If piggyback is infusing at a rate less than 100 mL/hr, enter 25 mL into dose field and 100 mL/hr into rate field of order. For KVO fluids, enter rate of 20 mL/hr or less into rate field of order. sodium chloride 0.9% (NS) flush 10 mL 10 mL, IntraCATHeter, PRN, line care, before blood draws, before and after infusion or medication administration, Starting on Tue10/31/23 at 1707, Use 10 mL or larger syringe. sodium chloride 0.9% (NS) flush 5-40 mL 5-40 mL, IntraVENous, PRN, line care, After every IV line use, Starting on Tue10/27/23 at 2157, For Line Patency: Peripheral IV = 5 mL; Midline or Central Line = 10 mL/lumen. If following IV push medication, administer flush at same rate as the IV push. Flush volume is determined by type of infusion therapy being given. For non-viscous solutions use: Peripheral IV = 5 mL Midline or Central Line = 10 mL/lumen For viscous solutions (i.e. blood components, parenteral nutrition, contrast media, or after obtaining blood sample) use: Peripheral IV = 10 mL Midline or Central Line = 20 mL/lumen Linked Groups Order Group 1: Insulin Lispro (Humalog) injection 0-6 UnitsJump to med 0-6 Units, SubCUTAneous, 3 times daily with meals, First dose on Tue10/28/23 at 0800, Low Dose Correction Algorithm Glucose: Dose: LESS than 139 No Insulin 140- 199 1 Unit 200-249 2 Units 250-299 3 Units 300-349 4 Units 350-400 5 Units Above 400 6 Units And Insulin Lispro (Humalog) injection 0-6 UnitsJump to med 0-6 Units, SubCUTAneous, Nightly, First dose on Tue10/27/23 at 2215, If continuous tube feedings/TPN/NPO, give correction dose based on result, no reduction in dose. If eating or bolus tube feeding: Low Dose Correction Algorithm Glucose: Dose: LESS than 139 No Insulin 140-199 1 Unit 200-249 2 Units 250-299 3 Units 300-349 4 Units 350-400 5 Units Above 400 6 Units Group 2: acetaminophen (Tylenol) tablet 650 mgJump to med 650 mg, Oral, Every 6 hours PRN, mild pain (1-3), fever, For temp greater than 100.4 F (38 C), Starting on Cora 10/27/23 at 2157, Maximum dose of acetaminophen is 4000 mg from all sources in 24 hours. Or acetaminophen (Tylenol) suppository 650 mgJump to med 650 mg, Rectal, Every 6 hours PRN, mild pain (1-3), fever, For temp greater than 100.4 F (38 C), Starting on Cora 10/27/23 at 2157, Administer if oral route cannot be used. Maximum dose of acetaminophen is 4000 mg from all sources in 24 hours. Group 3: ondansetron ODT (Zofran-ODT) disintegrating tablet 4 mgJump to med 4 mg, Oral, Every 8 hours PRN, nausea, vomiting, Starting on Cora 10/27/23 at 2157, 1st Line. If inadequate response within 60 minutes, proceed to next-line agent or contact provider if no further options ordered. Patient should allow tablet to dissolve on tongue. Do not remove from blister pack until just before administering. Or ondansetron (Zofran) injection 4 mgJump to med 4 mg, IntraVENous, Every 6 hours PRN, nausea, vomiting, Starting on Cora 10/27/23 at 2157, 1st Line. Give IV if patient is unable to take orally. If inadequate response within 60 minutes, proceed to next-line agent or contact provider if no further options ordered. FOR RECORDS PERTAINING TO PATIENTS WHO ARE OR HAVE BEEN ENROLLED IN A CHEMICAL DEPENDENCY/SUBSTANCEABUSE PROGRAM, SOME INFORMATION MAY BE OMITTED. This clinical summary was aggregated from multiple sources. Caution should be exercised in using it in the provision of clinical care. This summary normalizes information from multiple sources, and as a consequence, information in this document may materially change the coding, format and clinical context of patient data. In addition, data may be omitted in some cases. CLINICAL DECISIONS SHOULD BE BASED ON THE PRIMARY CLINICAL RECORDS. [facility]. provides no warranty or guarantee of the accuracy or completeness of information in this document.
[2024-11-26 09:06] LABS: Anion Gap 12 (5-15); BUN 14 mg/dL (4-19); BUN/Creat Ratio 22.4 RATIO (10-20); Calcium,Total 9.2 mg/dL (7.6-11.0); Carbon Dioxide 27.6 mmol/L (21.0-32.0); Chloride 96 mmol/L (98-108); Glucose 270 mg/dL (70-99); Potassium 4.0 mmol/L (3.3-5.1)
[2024-11-26 12:03] LABS: Hematocrit 31.7 % (40-54); Hemoglobin 8.9 g/dL (13.0-16.5); Immature Granulocytes Count 0.060 X10^3/uL (0.0-0.0); Mean Corp Hgb Conc 28.1 g/dL (32-36); Mean Corpuscular Volume 78.5 fL (80-94); Mean Platelet Vol. 9.9 fl (6.2-12.0); NRBC Flagged by Analyzer 0 % (0-5); Platelet Count 306 K/mm3 (150-450); RBC Distribution Width CV 17.9 % (11.6-14.6); RBC Distribution Width SD 50.6 fl (35.1-43.9); Red Blood Count 4.04 M/mm3 (4.6-6.2); White Blood Count 10.2 K/mm3 (4.4-11.0)
== END | disposition home or self-care (01) ==
LOC: OLS.WHLEAS 05:00
PROVIDERS: PCP Internal Medicine; Visit Provider Internal Medicine
DX: E11.9 Type 2 diabetes mellitus without complications (principal); I50.33 Acute on chronic diastolic (congestive) heart failure; G82.20 Paraplegia, unspecified; J96.21 Acute and chronic respiratory failure with hypoxia; J18.9 Pneumonia, unspecified organism; E11.42 Type 2 diabetes mellitus with diabetic polyneuropathy
CPT/HCPCS: 36415; 80048; 85025; 87493

== ENCOUNTER → 2024-12-04 05:00 | Outpatient (REF) | payer MEDICAID, SELFPAY ==
[2024-12-04 08:40] LABS: Hematocrit 30.8 % (40-54); Hemoglobin 8.8 g/dL (13.0-16.5); Immature Granulocytes Count 0.060 X10^3/uL (0.0-0.0); Mean Corp Hgb Conc 28.6 g/dL (32-36); Mean Corpuscular Volume 75.7 fL (80-94); Mean Platelet Vol. 9.6 fl (6.2-12.0); NRBC Flagged by Analyzer 0 % (0-5); Platelet Count 384 K/mm3 (150-450); RBC Distribution Width CV 17.7 % (11.6-14.6); RBC Distribution Width SD 48.3 fl (35.1-43.9); Red Blood Count 4.07 M/mm3 (4.6-6.2); White Blood Count 11.1 K/mm3 (4.4-11.0)
[2024-12-04 09:01] LABS: Anion Gap 11 (5-15); BUN 13 mg/dL (4-19); BUN/Creat Ratio 20.1 RATIO (10-20); Calcium,Total 8.9 mg/dL (7.6-11.0); Carbon Dioxide 31.9 mmol/L (21.0-32.0); Chloride 94 mmol/L (98-108); Glucose 200 mg/dL (70-99); Potassium 3.2 mmol/L (3.3-5.1)
== END ==
LOC: OLS.WHLEAS 05:00
PROVIDERS: PCP Internal Medicine; Visit Provider Nurse Practitioner Adult Health
DX: G82.20 Paraplegia, unspecified (principal); J96.21 Acute and chronic respiratory failure with hypoxia; I11.0 Hypertensive heart disease with heart failure; I50.33 Acute on chronic diastolic (congestive) heart failure; J18.9 Pneumonia, unspecified organism; E11.42 Type 2 diabetes mellitus with diabetic polyneuropathy
CPT/HCPCS: 36415; 80048; 85025

== ENCOUNTER → 2024-12-06 05:00 | Outpatient (REF) | payer MEDICAID, SELFPAY ==
[2024-12-06 08:34] LABS: Potassium 3.9 mmol/L (3.3-5.1)
== END ==
LOC: OLS.WHLEAS 05:00
PROVIDERS: PCP Internal Medicine; Visit Provider Internal Medicine
DX: G82.20 Paraplegia, unspecified (principal); J96.21 Acute and chronic respiratory failure with hypoxia; I50.33 Acute on chronic diastolic (congestive) heart failure; J18.9 Pneumonia, unspecified organism; E11.42 Type 2 diabetes mellitus with diabetic polyneuropathy; E11.22 Type 2 diabetes mellitus with diabetic chronic kidney disease; E87.6 Hypokalemia
CPT/HCPCS: 36415; 84132

== ENCOUNTER 2024-12-07 09:15 | Outpatient (RCR) | payer MEDICAID, SELFPAY ==
[2024-11-23 08:42] VITALS: BP 128/72; PULSE 106; TEMP 36.5
--- NOTE | 2024-11-23 12:53 | WC ---
PHOTO 11/23/24 R ISCHIUM/L ISCHIUM/COCCYX
--- NOTE | 2024-11-23 12:54 | WC ---
PHOTO 11/23/24 LEFT HEEL
--- NOTE | 2024-11-23 12:58 | WC ---
PHOTO 11/23/24 RIGHT HEEL
--- NOTE | 2024-11-23 15:22 | PN.PCM_ITS ---
History of Present Illness Date of Service: 11/23/24 Chief Complaint: sacral decubitus ulcer History of Wound: Jani is a pleasant 59 yo gentleman that has undergone an unfortunate series of events over the last several years which has left him paraplegic and with a sacral decubitus ulcer and residing in [facility]. He has been referred to the wound center for evaluation and treatment of his sacral ulcer. He has had a long history of degenerative disc disease of his spine and underwent spine surgery in August 2016 initially and then again in February 2017 due to osteomyelitis and infection of hardware. He underwent further surgery for fusion in December of 2020. He fell in November of 2022 getting up from his chair and then experienced worsening pain, weakness in his legs and ultimately became paraplegic from the waist down. He underwent surgery in [place] in January 2023 at [facility] and then had several complications including pneumonia, pulmonary embolisms and a sacral ulcer that developed into a large defect after multiple surgical debridements and osteomyelitis of his sacrum while at [facility] through the first part 2023 and then attempted to come home to be cared for by his elderly mother which was not successful and he was hospitalized and discharged to [facility] where he has been residing and continues to reside. He has undergone many different treatments for his sacral ulcer including wound vac, silver dressings and Dakins and does have an air mattress but it is not an alternating pressure air mattress. The staff does try to offload his ulcer with wedges and pillows but it is difficult due to his chronic back pain. He is currently having the wound dressed with Dakins wet to dry and super absorber dressings twice daily. he reports being on chronic antibiotic treatment and IV treatment over the past year and states that he had MRI that showed resolution of osteomyelitis. (Records unavailable). He currently does not have any symptoms of systemic infection or localized infection. Denies fever, chills, nausea. Subjective Subjective Jani returns today for evaluation and treatment of a sacral decubitus ulcer. He has been tolerating dressing changes with Dakins and super absorber dressings. He underwent IV antibiotic treatment for 2 weeks for positive cultures. Denies fever, chills, erythema. Objective Data Objective Data Vital Signs: Vital Signs Temp Pulse BP 97.7 F L 106 H 128/72 H 11/23/24 08:42 11/23/24 08:42 11/23/24 08:42 Physical Exam Const alert, oriented x3, no apparent distress and well nourished Constitutional Narrative: Morbidly obese, middle-aged, white male, sitting up in bed, appears comfortable and nontoxic General Appearance: cooperative and comfortable Nutritional Appearance: morbidly obese HEENT head/scalp atraumatic and moist oral mucous membranes Resp normal respiratory effort, no retractions, no use of accessory muscles and clear to auscultation bilaterally Resp Narrative: Distant due to body habitus Cardio regular rate, regular rhythm, S1 normal heart sound, S2 normal heart sound, no murmurs, no rub, no gallops and no clicks GI normal to inspection, nondistended, normoactive bowel sounds, soft to palpation and non-tender GI Narrative: colostomy present Extremity Extremity Narrative: Chronic bilateral lower extremity edema due to history of paraplegia and lack of movement, no cyanosis or clubbing General Extremity: edema bilateral lower extremity Details: moderate Skin Wounds: wounds noted Wound Narrative: as noted in clinical panel - large sacral ulcer and right ischial ulcer, no visible bone, shearing injury of left ischial area, area is irregular with fringe like skin in areas from repetitive shearing and pressure Neuro oriented x3, CN's II-XII intact bilaterally, No moves all extremities, No no focal motor deficits and No no sensory deficits noted Neuro Narrative: Bilateral lower extremity flaccidity due to history of L1 injury Speech: speech normal Psych affect normal Psych Narrative: Very pleasant, interacts appropriately Debridement Note Debridement Note Wound debrided: left ischium Laterality: Left Tissue Removed: Yellow slough, devitalized tissue No debridement was completed: No debridement was completed today Post-Debridement Measurements and Additional Note: Post-Debridement Measurements/Treatment - Nurse 1 - General Ulcer Assessment Start: 11/23/24 08:42 Freq: Status: Active Protocol: BONITA.LOWEXT Activity Type Activity Date Activity User E-sign Co-sign Detail Recorded Client Recorded Date Recorded By Document 11/23/24 08:42 RAMO [id number] 11/23/24 08:46 RAMO 11/23/24 08:42 - Today's Visit Information Type of service Follow-up Visit (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 Any new allergies or adverse reactions No Had a fall/change in ADL's that may No increase risk of falls Signs or symptoms of abuse and/or No neglect since last visit Have you been in the hospital since your No last visit? Has dressing in place as prescribed Yes Has compression in place as prescribed N/A Has offloadiing in place as prescribed Yes Experienced any changes in pain level or No management Left Footwear Other Footwear (Comment) Right Footwear Other Footwear (Comment) Other Footwear heel protectors Pain Scale: 0-10 Numeric Is Patient Pain Free? Yes WC - Nurse 1 - General Ulcer Measurement Start: 11/23/24 08:42 Freq: Status: Active Protocol: Activity Type Activity Date Activity User E-sign Co-sign Detail Recorded Client Recorded Date Recorded By Document 11/23/24 08:42 RB [id number] 11/23/24 08:46 RB 11/23/24 08:42 Wound Center Nurse 1 #5 Right Heel Blister -Combined with other wound No -Current Size (cm) - Length 0.1 -Current Size (cm) - Width 0.1 -Current Size (cm) - Depth 0.1 -Total Square Cm 0.01 -Date of Last Picture (Recall this 11/23/24 field) -Photo Taken Yes -Epithelialization Large 67-100% #4 Left Heel Blister -Combined with other wound No -Current Size (cm) - Length 0.1 -Current Size (cm) - Width 0.1 -Current Size (cm) - Depth 0.1 -Total Square Cm 0.01 -Date of Last Picture (Recall this 11/23/24 field) -Photo Taken Yes -Epithelialization Large 67-100% 2. L ischium -Combined with other wound No -Current Size (cm) - Length 1 -Current Size (cm) - Width 1 -Current Size (cm) - Depth 0.1 -Total Square Cm 1 -Date of Last Picture (Recall this 11/23/24 field) -Photo Taken Yes -Tunneling No -Undermining/Tunneling No -Circular Undermining No -Exudate Amt Large -Exudate Type Serosanguineous -Wound Margin Distinct, Outline Attached -Granulation Amt Large (67-100%) -Granulation Quality Red -Slough/Fibrin Yes -Necrosis Amt Small (1-33%) -Necrotic Tissue Type Adherent Slough -Texture (Trish-wound Skin Appearance) Assessed, Friable, Scarring -Moisture (Trish-wound Skin Appearance) Assessed -Color (Trish-wound Skin Appearance) Assessed, Erythema -Temperature (Trish-wound Skin No Abnormality Appearance) (Pt Warm) -Tenderness on Palpation (Trish-wound No Skin Appearance) -Ulcer Cleansing Soap and Water -Foul Odor after Cleansing No -Anesthetic Used 4% Lidocaine Solution 3. R ischium -Combined with other wound No -Current Size (cm) - Length 7.5 -Current Size (cm) - Width 6 -Current Size (cm) - Depth 0.1 -Total Square Cm 45.0 -Date of Last Picture (Recall this 11/23/24 field) -Photo Taken Yes -Tunneling No -Undermining/Tunneling No -Circular Undermining No -Exudate Amt Large -Exudate Type Serosanguineous -Wound Margin Distinct, Outline Attached -Granulation Amt Large (67-100%) -Granulation Quality Red -Slough/Fibrin Yes -Necrosis Amt Small (1-33%) -Necrotic Tissue Type Adherent Slough -Texture (Trish-wound Skin Appearance) Assessed, Friable, Scarring -Moisture (Trish-wound Skin Appearance) Assessed -Color (Trish-wound Skin Appearance) Assessed, Erythema -Temperature (Trish-wound Skin No Abnormality Appearance) (Pt Warm) -Tenderness on Palpation (Trish-wound No Skin Appearance) -Ulcer Cleansing Soap and Water -Foul Odor after Cleansing No -Anesthetic Used 4% Lidocaine Solution *1. coccyx -Combined with other wound No -Current Size (cm) - Length 8.5 -Current Size (cm) - Width 15 -Current Size (cm) - Depth 0.5 -Total Square Cm 127.5 -Date of Last Picture (Recall this 11/23/24 field) -Photo Taken Yes -Tunneling No -Undermining/Tunneling No -Circular Undermining No -Exudate Amt Large -Exudate Type Serosanguineous -Granulation Amt Large (67-100%) -Granulation Quality Red -Slough/Fibrin Yes -Necrosis Amt Small (1-33%) -Necrotic Tissue Type Adherent Slough -Texture (Trish-wound Skin Appearance) Assessed, Friable, Scarring -Moisture (Trish-wound Skin Appearance) Assessed -Color (Trish-wound Skin Appearance) Assessed -Temperature (Trish-wound Skin No Abnormality Appearance) (Pt Warm) -Tenderness on Palpation (Trish-wound No Skin Appearance) -Ulcer Cleansing Soap and Water -Foul Odor after Cleansing No -Anesthetic Used 4% Lidocaine Solution WC - Nurse 2 - General Ulcer CM Notes Start: 11/23/24 08:42 Freq: Status: Active Protocol: Activity Type Activity Date Activity User E-sign Co-sign Detail Recorded Client Recorded Date Recorded By Document 11/23/24 09:46 GM [id number] 11/23/24 10:01 GM Edit Result 11/23/24 09:46 GM (1) [id number] 11/23/24 10:02 GM (1) 3. R ischium - Bleeding Controlled with Pressure => Pressure,Silver => Nitrate ($) 11/23/24 09:46 Wound Center Nurse 2 2. L ischium -Time 09:48 -Correct Patient Yes -Correct Side, Site, Position Yes -Correct Procedure No -Procedure Performed No -Tunneling No -Undermining/Tunneling No -Circular Undermining No -Wound/Ulcer Outcome Healed- Epithelialized -Ulcer Cleansing Not Cleansed -Foul Odor after Cleansing No -Bioengineered Tissue No -Bleeding Controlled with NA 3. R ischium -Time 09:47 -Correct Patient Yes -Correct Side, Site, Position Yes -Correct Procedure Yes -Procedure Performed Yes -Type of Procedure Debridement -Clinical Debridement Muscle / Fascia -Tissue Removed Muscle -Post Debridement (cm) - Length 10.0 -Post Debridement (cm) - Width 5.5 -Post Debridement (cm) - Depth 0.1 -Total Square (Post) (cm) 55.00 -Area of Debridement (cm) - Length 10.0 -Area of Debridement (cm) - Width 5.5 -Total Square (Area) (cm) 55.00 -Circular Undermining No -Wound/Ulcer Outcome Not Healed -Ulcer Cleansing Rinsed/ Irrigated with Saline -Foul Odor after Cleansing No -Bioengineered Tissue No -Bleeding Controlled with Pressure,Silver Nitrate ($) -Treatment Response Procedure Tolerated Well -Offloading No -Debridement - Muscle / Fascia, 1st No 20sq cm *1. coccyx -Time 09:48 -Correct Patient Yes -Correct Side, Site, Position Yes -Correct Procedure Yes -Procedure Performed Yes -Type of Procedure Debridement -Clinical Debridement Muscle / Fascia -Tissue Removed Muscle -Post Debridement (cm) - Length 13.0 -Post Debridement (cm) - Width 15.0 -Post Debridement (cm) - Depth 13.0 -Total Square (Post) (cm) 195.00 -Area of Debridement (cm) - Length 13.0 -Area of Debridement (cm) - Width 15.0 -Total Square (Area) (cm) 195.00 -Tunneling No -Undermining/Tunneling No -Circular Undermining No -Wound/Ulcer Outcome Not Healed -Ulcer Cleansing Not Cleansed -Foul Odor after Cleansing No -Bioengineered Tissue No -Bleeding Controlled with Pressure -Treatment Response Procedure Tolerated Well -Offloading No -Assistive Device(s) Wheelchair -Pressure Reduction Wheelchair cushion -Debridement - Muscle / Fascia, 1st Yes 20sq cm -Debridement, Muscle/Fascia, ea addt'l 12 20sq cm or part thereof Pain Scale: 0-10 Numeric Is Patient Pain Free? Yes - Nurse 3 - General Ulcer D/C NN Start: 11/23/24 08:42 Freq: Status: Active Protocol: Activity Type Activity Date Activity User E-sign Co-sign Detail Recorded Client Recorded Date Recorded By Document 11/23/24 10:17 [facility] [id number] 11/23/24 10:19 [facility] 11/23/24 10:17 Wound Care Center Nurse 3 3. R ischium -Ulcer Cleansing Soap and Water -Foul Odor after Cleansing No -Other Dressing dakins wet to dry, abd pad, drsgs per rb rn -Primary Dressing Covered/Secured with Secured with Tape *1. coccyx -Ulcer Cleansing Soap and Water -Other Dressing dakins wet to dry, abd pads, drsgs per rb rn -Primary Dressing Covered/Secured with Secured with Tape Treatment Response Procedure Tolerated Well Pain Scale: 0-10 Numeric Is Patient Pain Free? 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 Care Facility Notes: [facility] heels pad/ protected w/ gauze Additional Wound Wound debrided: right ischium Laterality: Right Wound Grade/Stage: Stage III Type of Debridement: Excisional debridement Anesthesia Used: 4% Lidocaine Solution Depth: Down to and including healthy tissue and in the subcutaneous layer Percentage of wound debrided: 100 Instrument Used: 7mm curette and - (scissors) Tissue Removed: Yellow slough, devitalized tissue Severity: Fat Layer Exposed Amount of bleeding with debridement: Moderate Bleeding Controlled with: Compression and gauze and Silver Nitrate Patient tolerated procedure: Patient tolerated procedure well Additional Wound Wound debrided: coccyx Laterality: Not Applicable Wound Grade/Stage: Stage IV Type of Debridement: Excisional debridement Anesthesia Used: 4% Lidocaine Solution Depth: Down to and including healthy tissue, in the subcutaneous layer and to muscle Percentage of wound debrided: 100 Instrument Used: 7mm curette Tissue Removed: Yellow slough, devitalized tissue Severity: Necrosis of Muscle Amount of bleeding with debridement: Mild Bleeding Controlled with: Compression and gauze Patient tolerated procedure: Patient tolerated procedure well Assessment/Plan Assessment/Plan (1) Chronic pain: CODE(S): G89.29 - Other chronic pain QUALIFIERS: Chronic pain type: chronic pain syndrome Qualified Code(s): G89.4 - Chronic pain syndrome (2) Hypoxia: CODE(S): R09.02 - Hypoxemia (3) History of paraplegia: CODE(S): Z86.69 - Personal history of other diseases of the nervous system and sense organs (4) Chronic indwelling Campbell catheter: CODE(S): Z97.8 - Presence of other specified devices (5) Type 2 diabetes mellitus: CODE(S): E11.9 - Type 2 diabetes mellitus without complications QUALIFIERS: Diabetes mellitus fdc insulin use: without fdc use Diabetes mellitus complication status: with neurologic complications Diabetes mellitus complication detail: with polyneuropathy Qualified Code(s): E11.42 - Type 2 diabetes mellitus with diabetic polyneuropathy (6) Chronic anticoagulation: CODE(S): 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 (7) History of deep vein thrombosis: CODE(S): Z86.718 - Personal history of other venous thrombosis and embolism (8) Decubitus ulcer of sacral region, stage 4: CODE(S): L89.154 - Pressure ulcer of sacral region, stage 4 (9) Decubitus ulcer of left perineal ischial region, stage 2: CODE(S): L89.322 - Pressure ulcer of left buttock, stage 2 (10) Hx of spinal surgery: CODE(S): Z98.890 - Other specified postprocedural states (11) Colostomy status: CODE(S): Z93.3 - Colostomy status (12) HTN (hypertension): CODE(S): I10 - Essential (primary) hypertension QUALIFIERS: Hypertension type: primary hypertension Qualified Code(s): I10 - Essential (primary) hypertension (13) BATOOL treated with BiPAP: CODE(S): G47.33 - Obstructive sleep apnea (adult) (pediatric) (14) Lymphedema: CODE(S): I89.0 - Lymphedema, not elsewhere classified (15) Decubitus ulcer of right ischium, stage 3: CODE(S): L89.313 - Pressure ulcer of right buttock, stage 3 PLAN: Plan Debridement performed today in clinic as annotated above. At home wound-care instructions: The patient's ulcers will be washed with antibacterial soap and water and then will use Adaptic and Dakins wet to dry to wound bed and cover with gauze and superabsorber for heavy drainage twice daily. Keep dressing clean and dry. Left heel and right lateral foot will be padded with heel protectors daily. Off-loading: The patient was instructed to avoid pressure and friction on the affected areas. Reposition every 2 hours at minimum. Avoid prolonged standing and/or dangling of legs. When seated, feet should be elevated at chest level. Continue air mattress. Order has been written for alternating pressure air mattress to assist in offloading pressure to his ulcers. He now has alternating pressure air mattress to assist in offloading. Diet: Patient encouraged to increase protein intake while taking caution to avoid high carbohydrate and/or sugar intake. He is getting Wiliam protein supplement at [facility]. Labs/cultures/imaging: Will obtain previous imaging results. Most recent A1C 7.9% on 07/23/24. Wound culture showed multiple bacteria and he has completed on Flagyl and Cefdinir. IV antibiotic completed on Tuesday. Culture taken today due to continued odor. Follow-up: Return in 1 week for wound care. Return sooner or report to the emergency room should symptoms worsen, or new symptoms arise. Note: [employer] speech recognition online education manager software was used to create portions of this document. Sound-alike and misspelled words, as well as other online education manager errors may be contained in the documentation.
[2024-11-30 08:54] VITALS: BP 143/83; PULSE 96; RESP 18; TEMP 36.1
--- NOTE | 2024-11-30 15:33 | PCM.WC.PN ---
History of Present Illness Date of Service: 11/30/24 Chief Complaint: sacral decubitus ulcer History of Wound: Jani is a pleasant 59 yo gentleman that has undergone an unfortunate series of events over the last several years which has left him paraplegic and with a sacral decubitus ulcer and residing in [facility]. He has been referred to the wound center for evaluation and treatment of his sacral ulcer. He has had a long history of degenerative disc disease of his spine and underwent spine surgery in August 2016 initially and then again in February 2017 due to osteomyelitis and infection of hardware. He underwent further surgery for fusion in December of 2020. He fell in November of 2022 getting up from his chair and then experienced worsening pain, weakness in his legs and ultimately became paraplegic from the waist down. He underwent surgery in [place] in January 2023 at [facility] and then had several complications including pneumonia, pulmonary embolisms and a sacral ulcer that developed into a large defect after multiple surgical debridements and osteomyelitis of his sacrum while at [facility] through the first part 2023 and then attempted to come home to be cared for by his elderly mother which was not successful and he was hospitalized and discharged to [facility] where he has been residing and continues to reside. He has undergone many different treatments for his sacral ulcer including wound vac, silver dressings and Dakins and does have an air mattress but it is not an alternating pressure air mattress. The staff does try to offload his ulcer with wedges and pillows but it is difficult due to his chronic back pain. He is currently having the wound dressed with Dakins wet to dry and super absorber dressings twice daily. he reports being on chronic antibiotic treatment and IV treatment over the past year and states that he had MRI that showed resolution of osteomyelitis. (Records unavailable). Subjective Subjective Jani returns today for evaluation and treatment of a sacral decubitus ulcer. He has been tolerating dressing changes with Dakins and super absorber dressings. He underwent IV antibiotic treatment for 2 weeks for positive cultures. He has not been feeling well all this week and was tested for C. diff which is positive. He has not started on any antibiotics. His wound cultures were positive from last week. He has a PICC line in place. Denies fever, chills, erythema. Objective Data Objective Data Vital Signs: Vital Signs Temp Pulse Resp BP 96.9 F L 96 18 143/83 H 11/30/24 08:54 11/30/24 08:54 11/30/24 08:54 11/30/24 08:54 Lab / Micro Data Micro: Microbiology 11/23/24 10:04 Wound - Ischium Gram Stain - Final 11/23/24 10:04 Wound - Ischium Wound Culture - Final Meth. resistant Staph. aureus Vancomycin Resist. E. faecalis Pseudomonas aeruginosa Corynebacterium striatum Acinetobacter baumannii Klebsiella aerogenes 11/23/24 10:04 Wound - Ischium Anaerobic Culture - Final Porphyromonas species Physical Exam Const alert, oriented x3, no apparent distress and well nourished Constitutional Narrative: Morbidly obese, middle-aged, white male, sitting up in bed, appears comfortable and nontoxic General Appearance: cooperative and comfortable Nutritional Appearance: morbidly obese HEENT head/scalp atraumatic and moist oral mucous membranes Resp normal respiratory effort, no retractions, no use of accessory muscles and clear to auscultation bilaterally Resp Narrative: Distant due to body habitus Cardio regular rate, regular rhythm, S1 normal heart sound, S2 normal heart sound, no murmurs, no rub, no gallops and no clicks GI normal to inspection, nondistended, normoactive bowel sounds, soft to palpation and non-tender GI Narrative: colostomy present Extremity Extremity Narrative: Chronic bilateral lower extremity edema due to history of paraplegia and lack of movement, no cyanosis or clubbing General Extremity: edema bilateral lower extremity Details: moderate Skin Wounds: wounds noted Wound Narrative: as noted in clinical panel - large sacral ulcer and right ischial ulcer, no visible bone, shearing injury of left ischial area, area is irregular with fringe like skin in areas from repetitive shearing and pressure, friable and bleeding easily Neuro oriented x3, CN's II-XII intact bilaterally, No moves all extremities, No no focal motor deficits and No no sensory deficits noted Neuro Narrative: Bilateral lower extremity flaccidity due to history of L1 injury Speech: speech normal Psych affect normal Psych Narrative: Very pleasant, interacts appropriately Debridement Note Debridement Note Wound debrided: left ischium Laterality: Left No debridement was completed: No debridement was completed today Post-Debridement Measurements and Additional Note: Post-Debridement Measurements/Treatment WC - Nurse 1 - General Ulcer Assessment Start: 11/23/24 08:42 Freq: Status: Active Protocol: ELENA Activity Type Activity Date Activity User E-sign Co-sign Detail Recorded Client Recorded Date Recorded By Document 11/23/24 08:42 RB [id number] 11/23/24 08:46 RB Document 11/30/24 08:54 DL [id number] 11/30/24 09:12 DL 11/23/24 11/30/24 08:42 08:54 WC - Today's Visit Information Type of service Follow-up Visit Follow-up Visit (Physician/TRAINMASTER (Physician/TRAINMASTER ) ) Arrival Mode Wheelchair Wheelchair Transfer Assistance Kelli Lift Kelli Lift Patient Identification Verified (Name & Yes ) Patient Requires Transmission-Based No Precautions Vital Signs Temperature (97.8 F-99.1 F) 97.7 F L 96.9 F L Temperature Source Temporal Temporal Pulse Rate (60-100) 106 H 96 Pulse Location Monitor Monitor Respiratory Rate (12-18) 18 Respiratory rate source Observation Blood Pressure (90/60-120/80) 128/72 H 143/83 H Blood Pressure Mean (mm Hg) 90 103 Source Monitor Monitor Position Sitting History Since Last Visit- (Skip if this is Patient's initial visit) Have you changed medications since your No No last visit? Any new allergies or adverse reactions No No Had a fall/change in ADL's that may No No increase risk of falls Signs or symptoms of abuse and/or No No neglect since last visit Have you been in the hospital since your No No last visit? Has dressing in place as prescribed Yes Yes Has compression in place as prescribed N/A N/A Has offloadiing in place as prescribed Yes Yes Experienced any changes in pain level or No No management Left Footwear Other Footwear (Comment) Right Footwear Other Footwear (Comment) Other Footwear heel protectors Pain Scale: 0-10 Numeric Is Patient Pain Free? Yes Yes - Nurse 1 - General Ulcer Measurement Start: 11/23/24 08:42 Freq: Status: Active Protocol: Activity Type Activity Date Activity User E-sign Co-sign Detail Recorded Client Recorded Date Recorded By Document 11/23/24 08:42 RB [id number] 11/23/24 08:46 RB Document 11/30/24 08:54 DL [id number] 11/30/24 09:12 DL 11/23/24 11/30/24 08:42 08:54 Wound Center Nurse 1 #5 Right Heel Blister -Combined with other wound No -Current Size (cm) - Length 0.1 -Current Size (cm) - Width 0.1 -Current Size (cm) - Depth 0.1 -Total Square Cm 0.01 -Date of Last Picture (Recall this 11/23/24 field) -Photo Taken Yes -Epithelialization Large 67-100% #4 Left Heel Blister -Combined with other wound No -Current Size (cm) - Length 0.1 -Current Size (cm) - Width 0.1 -Current Size (cm) - Depth 0.1 -Total Square Cm 0.01 -Date of Last Picture (Recall this 11/23/24 field) -Photo Taken Yes -Epithelialization Large 67-100% 2. L ischium -Combined with other wound No -Current Size (cm) - Length 1 -Current Size (cm) - Width 1 -Current Size (cm) - Depth 0.1 -Total Square Cm 1 -Date of Last Picture (Recall this 11/23/24 field) -Photo Taken Yes -Tunneling No -Undermining/Tunneling No -Circular Undermining No -Exudate Amt Large -Exudate Type Serosanguineous -Wound Margin Distinct, Outline Attached -Granulation Amt Large (67-100%) -Granulation Quality Red -Slough/Fibrin Yes -Necrosis Amt Small (1-33%) -Necrotic Tissue Type Adherent Slough -Texture (Trish-wound Skin Appearance) Assessed, Friable, Scarring -Moisture (Trish-wound Skin Appearance) Assessed -Color (Trish-wound Skin Appearance) Assessed, Erythema -Temperature (Trish-wound Skin No Abnormality Appearance) (Pt Warm) -Tenderness on Palpation (Trish-wound No Skin Appearance) -Ulcer Cleansing Soap and Water -Foul Odor after Cleansing No -Anesthetic Used 4% Lidocaine Solution 3. R ischium -Combined with other wound No -Current Size (cm) - Length 7.5 7 -Current Size (cm) - Width 6 5 -Current Size (cm) - Depth 0.1 0.1 -Total Square Cm 45.0 35 -Date of Last Picture (Recall this 11/23/24 field) -Photo Taken Yes -Tunneling No -Undermining/Tunneling No -Circular Undermining No -Exudate Amt Large Large -Exudate Type Serosanguineous Serosanguineous -Wound Margin Distinct, Fibrotic Scar, Outline Thickened Scar Attached -Granulation Amt Large (67-100%) Large (67-100%) -Granulation Quality Red Red -Slough/Fibrin Yes -Necrosis Amt Small (1-33%) None Present (0 %) -Necrotic Tissue Type Adherent Slough -Structure Exposed N/A -Texture (Trish-wound Skin Appearance) Assessed, Friable, Friable, Scarring,Rash Scarring -Moisture (Trish-wound Skin Appearance) Assessed No Abnormality -Color (Trish-wound Skin Appearance) Assessed, No Abnormality Erythema -Temperature (Trish-wound Skin No Abnormality No Abnormality Appearance) (Pt Warm) (Pt Warm) -Tenderness on Palpation (Trish-wound No Skin Appearance) -Ulcer Cleansing Soap and Water Soap and Water -Foul Odor after Cleansing No No -Anesthetic Used 4% Lidocaine 4% Lidocaine Solution Solution *1. coccyx -Combined with other wound No -Current Size (cm) - Length 8.5 12 -Current Size (cm) - Width 15 4.8 -Current Size (cm) - Depth 0.5 0.1 -Total Square Cm 127.5 57.6 -Date of Last Picture (Recall this 11/23/24 field) -Photo Taken Yes -Tunneling No -Undermining/Tunneling No -Circular Undermining No -Exudate Amt Large Large -Exudate Type Serosanguineous Serosanguineous -Wound Margin Fibrotic Scar, Thickened Scar -Granulation Amt Large (67-100%) Large (67-100%) -Granulation Quality Red Red -Slough/Fibrin Yes -Necrosis Amt Small (1-33%) None Present (0 %) -Necrotic Tissue Type Adherent Slough -Structure Exposed N/A -Texture (Trish-wound Skin Appearance) Assessed, Scarring Friable, Scarring -Moisture (Trish-wound Skin Appearance) Assessed Dry/Scaly -Color (Trish-wound Skin Appearance) Assessed -Temperature (Trish-wound Skin No Abnormality No Abnormality Appearance) (Pt Warm) (Pt Warm) -Tenderness on Palpation (Trish-wound No Skin Appearance) -Ulcer Cleansing Soap and Water Soap and Water -Foul Odor after Cleansing No No -Anesthetic Used 4% Lidocaine 4% Lidocaine Solution Solution WC - Nurse 2 - General Ulcer CM Notes Start: 11/23/24 08:42 Freq: Status: Active Protocol: Activity Type Activity Date Activity User E-sign Co-sign Detail Recorded Client Recorded Date Recorded By Document 11/23/24 09:46 GM [id number] 11/23/24 10:01 GM Edit Result 11/23/24 09:46 GM (1) [id number] 11/23/24 10:02 GM Document 11/30/24 10:47 DS [id number] 11/30/24 10:57 DS (1) 3. R ischium - Bleeding Controlled with Pressure => Pressure,Silver => Nitrate ($) 11/23/24 11/30/24 09:46 10:47 Wound Center Nurse 2 2. L ischium -Time 09:48 -Correct Patient Yes -Correct Side, Site, Position Yes -Correct Procedure No -Procedure Performed No -Tunneling No -Undermining/Tunneling No -Circular Undermining No -Wound/Ulcer Outcome Healed- Epithelialized -Ulcer Cleansing Not Cleansed -Foul Odor after Cleansing No -Bioengineered Tissue No -Bleeding Controlled with NA 3. R ischium -Time 09:47 10:47 -Correct Patient Yes Yes -Correct Side, Site, Position Yes Yes -Correct Procedure Yes -Procedure Performed Yes No -Type of Procedure Debridement -Clinical Debridement Muscle / Fascia -Tissue Removed Muscle -Post Debridement (cm) - Length 10.0 -Post Debridement (cm) - Width 5.5 -Post Debridement (cm) - Depth 0.1 -Total Square (Post) (cm) 55.00 -Area of Debridement (cm) - Length 10.0 -Area of Debridement (cm) - Width 5.5 -Total Square (Area) (cm) 55.00 -Circular Undermining No -Wound/Ulcer Outcome Not Healed Not Healed -Ulcer Cleansing Rinsed/ Irrigated with Saline -Foul Odor after Cleansing No -Bioengineered Tissue No -Bleeding Controlled with Pressure,Silver Nitrate ($) -Treatment Response Procedure Tolerated Well -Offloading No -Debridement - Muscle / Fascia, 1st No 20sq cm *1. coccyx -Time 09:48 10:47 -Correct Patient Yes Yes -Correct Side, Site, Position Yes Yes -Correct Procedure Yes -Procedure Performed Yes No -Type of Procedure Debridement -Clinical Debridement Muscle / Fascia -Tissue Removed Muscle -Post Debridement (cm) - Length 13.0 -Post Debridement (cm) - Width 15.0 -Post Debridement (cm) - Depth 13.0 -Total Square (Post) (cm) 195.00 -Area of Debridement (cm) - Length 13.0 -Area of Debridement (cm) - Width 15.0 -Total Square (Area) (cm) 195.00 -Tunneling No -Undermining/Tunneling No -Circular Undermining No -Wound/Ulcer Outcome Not Healed Not Healed -Ulcer Cleansing Not Cleansed -Foul Odor after Cleansing No -Bioengineered Tissue No -Bleeding Controlled with Pressure -Treatment Response Procedure Tolerated Well -Offloading No -Assistive Device(s) Wheelchair -Pressure Reduction Wheelchair cushion -Debridement - Muscle / Fascia, 1st Yes 20sq cm -Debridement, Muscle/Fascia, ea addt'l 12 20sq cm or part thereof Pain Scale: 0-10 Numeric Is Patient Pain Free? Yes Yes - Nurse 3 - General Ulcer D/C NN Start: 11/23/24 08:42 Freq: Status: Active Protocol: Activity Type Activity Date Activity User E-sign Co-sign Detail Recorded Client Recorded Date Recorded By Document 11/23/24 10:17 [facility] [id number] 11/23/24 10:19 [facility] Document 11/30/24 13:17 DL [id number] 11/30/24 13:18 DL 11/23/24 11/30/24 10:17 13:17 Wound Care Center Nurse 3 3. R ischium -Ulcer Cleansing Soap and Water Soap and Water -Foul Odor after Cleansing No No -Primary Dressing Applied Aquacel AG 4x4 -Other Dressing dakins wet to Dakins dry, abd pad, moistened gauze drsgs per rb rn -Primary Dressing Covered/Secured with Secured with Dry Gauze, Tape Secured with Tape -Other Covering ABD -Aquacel AG 4x4 1 *1. coccyx -Ulcer Cleansing Soap and Water Soap and Water -Foul Odor after Cleansing No -Other Dressing dakins wet to Aquacel AG/ dry, abd pads, Dakins drsgs per rb rn moistened gauze -Primary Dressing Covered/Secured with Secured with Dry Gauze, Tape Secured with Tape -Other Covering ABD Treatment Response Procedure Procedure Tolerated Well Tolerated Well Pain Scale: 0-10 Numeric Is Patient Pain Free? Yes Yes WC - Visit Discharge Discharge Condition Stable Stable Ambulatory Status Wheelchair Wheelchair Transportation ecf Private Auto Notes: [facility] Facility Type [facility] Care Facility Facility Notes: kristi heels pad/ protected w/ gauze Orders Sent Yes Additional Wound Wound debrided: right ischium Laterality: Right Wound Grade/Stage: Stage III Operative Diagnosis: No debridement completed - no significant slough and mild bleeding Additional Wound Wound debrided: coccyx Laterality: Not Applicable Wound Grade/Stage: Stage IV Tissue Removed: Yellow slough, devitalized tissue Operative Diagnosis: No debridement completed - minimal slough, mild bleeding Assessment/Plan Assessment/Plan (1) Chronic pain: CODE(S): G89.29 - Other chronic pain QUALIFIERS: Chronic pain type: chronic pain syndrome Qualified Code(s): G89.4 - Chronic pain syndrome (2) Hypoxia: CODE(S): R09.02 - Hypoxemia (3) History of paraplegia: CODE(S): Z86.69 - Personal history of other diseases of the nervous system and sense organs (4) Chronic indwelling Campbell catheter: CODE(S): Z97.8 - Presence of other specified devices (5) Type 2 diabetes mellitus: CODE(S): E11.9 - Type 2 diabetes mellitus without complications QUALIFIERS: Diabetes mellitus complication detail: with polyneuropathy Diabetes mellitus complication status: with neurologic complications Diabetes mellitus detention insulin use: without detention use Qualified Code(s): E11.42 - Type 2 diabetes mellitus with diabetic polyneuropathy (6) Chronic anticoagulation: CODE(S): Z79.01 - group home (current) use of anticoagulants (7) History of deep vein thrombosis: CODE(S): Z86.718 - Personal history of other venous thrombosis and embolism (8) Decubitus ulcer of sacral region, stage 4: CODE(S): L89.154 - Pressure ulcer of sacral region, stage 4 (9) Decubitus ulcer of left perineal ischial region, stage 2: CODE(S): L89.322 - Pressure ulcer of left buttock, stage 2 (10) Hx of spinal surgery: CODE(S): Z98.890 - Other specified postprocedural states (11) Colostomy status: CODE(S): Z93.3 - Colostomy status (12) HTN (hypertension): CODE(S): I10 - Essential (primary) hypertension QUALIFIERS: Hypertension type: primary hypertension Qualified Code(s): I10 - Essential (primary) hypertension (13) BATOOL treated with BiPAP: CODE(S): G47.33 - Obstructive sleep apnea (adult) (pediatric) (14) Lymphedema: CODE(S): I89.0 - Lymphedema, not elsewhere classified (15) Decubitus ulcer of right ischium, stage 3: CODE(S): L89.313 - Pressure ulcer of right buttock, stage 3 PLAN: Plan Debridement performed today in clinic as annotated above. At home wound-care instructions: The patient's ulcers will be washed with antibacterial soap and water and then will use Aquacel Ag and Dakins wet to dry to wound bed and cover with gauze and superabsorber for heavy drainage twice daily. Keep dressing clean and dry. Left heel and right lateral foot will be padded with heel protectors daily. Off-loading: The patient was instructed to avoid pressure and friction on the affected areas. Reposition every 2 hours at minimum. Avoid prolonged standing and/or dangling of legs. When seated, feet should be elevated at chest level. Continue air mattress. Order has been written for alternating pressure air mattress to assist in offloading pressure to his ulcers. He now has alternating pressure air mattress to assist in offloading. Diet: Patient encouraged to increase protein intake while taking caution to avoid high carbohydrate and/or sugar intake. He is getting [place] protein supplement at [facility]. Labs/cultures/imaging: Will obtain previous imaging results. Most recent A1C 7.9% on 07/23/24. Wound culture showed multiple bacteria and he has completed on Flagyl and Cefdinir. IV antibiotic completed on Tuesday. Culture positive for multiple bacteria and VRE and MDR Klebsiella. Will start him on Levofloxacin and Flagyl and a probiotic as he has also tested positive for C. Diff and will refer him for evaluation to Infectious disease for possible IV antibiotic treatment or other treatment recommendations due to his multiple organisms and resistance. Follow-up: Return in 1 week for wound care. Return sooner or report to the emergency room should symptoms worsen, or new symptoms arise. Note: [employer] speech recognition advance seal delivery system maintainer software was used to create portions of this document. Sound-alike and misspelled words, as well as other advance seal delivery system maintainer errors may be contained in the documentation.
[2024-12-07 09:38] VITALS: BP 132/57; PULSE 98; RESP 18; TEMP 36.8
--- NOTE | 2024-12-07 15:12 | PN.PCM_ITS ---
History of Present Illness Date of Service: 12/07/24 Chief Complaint: sacral decubitus ulcer History of Wound: Jani is a pleasant 59 yo gentleman that has undergone an unfortunate series of events over the last several years which has left him paraplegic and with a sacral decubitus ulcer and residing in [facility]. He has been referred to the wound center for evaluation and treatment of his sacral ulcer. He has had a long history of degenerative disc disease of his spine and underwent spine surgery in August 2016 initially and then again in February 2017 due to osteomyelitis and infection of hardware. He underwent further surgery for fusion in December of 2020. He fell in November of 2022 getting up from his chair and then experienced worsening pain, weakness in his legs and ultimately became paraplegic from the waist down. He underwent surgery in [place] in January 2023 at [facility] and then had several complications including pneumonia, pulmonary embolisms and a sacral ulcer that developed into a large defect after multiple surgical debridements and osteomyelitis of his sacrum while at [facility] through the first part 2023 and then attempted to come home to be cared for by his elderly mother which was not successful and he was hospitalized and discharged to [facility] where he has been residing and continues to reside. He has undergone many different treatments for his sacral ulcer including wound vac, silver dressings and Dakins and does have an air mattress but it is not an alternating pressure air mattress. The staff does try to offload his ulcer with wedges and pillows but it is difficult due to his chronic back pain. He is currently having the wound dressed with Dakins wet to dry and super absorber dressings twice daily. he reports being on chronic antibiotic treatment and IV treatment over the past year and states that he had MRI that showed resolution of osteomyelitis. (Records unavailable). Subjective Subjective Jani returns today for evaluation and treatment of a sacral decubitus ulcer. He has been tolerating dressing changes with Dakins and super absorber dressings. He underwent IV antibiotic treatment for 2 weeks for positive cultures. He has not been feeling well all this week and was tested for C. diff which is positive. He has not started on any antibiotics. His wound cultures were positive from last week. He has a PICC line in place. Denies fever, chills, erythema. Objective Data Objective Data Vital Signs: Vital Signs Temp Pulse Resp BP O2 Del Method 98.2 F 98 18 132/57 H Room Air 12/07/24 09:38 12/07/24 09:38 12/07/24 09:38 12/07/24 09:38 12/07/24 09:38 Oxygen Delivery Method Room Air Lab / Micro Data Micro: Microbiology 11/23/24 10:04 Wound - Ischium Gram Stain - Final 11/23/24 10:04 Wound - Ischium Wound Culture - Final Meth. resistant Staph. aureus Vancomycin Resist. E. faecalis Pseudomonas aeruginosa Corynebacterium striatum Acinetobacter baumannii Klebsiella aerogenes 11/23/24 10:04 Wound - Ischium Anaerobic Culture - Final Porphyromonas species Physical Exam Const alert, oriented x3, no apparent distress and well nourished Constitutional Narrative: Morbidly obese, middle-aged, white male, sitting up in bed, appears comfortable and nontoxic General Appearance: cooperative and comfortable Nutritional Appearance: morbidly obese HEENT head/scalp atraumatic and moist oral mucous membranes Resp normal respiratory effort, no retractions, no use of accessory muscles and clear to auscultation bilaterally Resp Narrative: Distant due to body habitus Cardio regular rate, regular rhythm, S1 normal heart sound, S2 normal heart sound, no murmurs, no rub, no gallops and no clicks GI normal to inspection, nondistended, normoactive bowel sounds, soft to palpation and non-tender GI Narrative: colostomy present Extremity Extremity Narrative: Chronic bilateral lower extremity edema due to history of paraplegia and lack of movement, no cyanosis or clubbing General Extremity: edema bilateral lower extremity Details: moderate Skin Wounds: wounds noted Wound Narrative: as noted in clinical panel - large sacral ulcer and right ischial ulcer, no visible bone, shearing injury of left ischial area, area is irregular with fringe like skin in areas from repetitive shearing and pressure, friable and bleeding easily Neuro oriented x3, CN's II-XII intact bilaterally, No moves all extremities, No no focal motor deficits and No no sensory deficits noted Neuro Narrative: Bilateral lower extremity flaccidity due to history of L1 injury Speech: speech normal Psych affect normal Psych Narrative: Very pleasant, interacts appropriately Debridement Note Debridement Note Wound debrided: left ischium Laterality: Left No debridement was completed: No debridement was completed today Post-Debridement Measurements and Additional Note: Post-Debridement Measurements/Treatment WC - Nurse 1 - General Ulcer Assessment Start: 11/23/24 08:42 Freq: Status: Active Protocol: BONITA.LOWRAMÓN Activity Type Activity Date Activity User E-sign Co-sign Detail Recorded Client Recorded Date Recorded By Document 11/23/24 08:42 RB [id number] 11/23/24 08:46 RB Document 11/30/24 08:54 DL [id number] 11/30/24 09:12 DL Document 12/07/24 09:38 KW [id number] 12/07/24 09:40 KW 11/23/24 11/30/24 12/07/24 08:42 08:54 09:38 - Today's Visit Information Type of service Follow-up Visit Follow-up Visit Follow-up Visit (Physician/CORRECTIONAL FACILITY PSYCHIATRIST (Physician/CORRECTIONAL FACILITY PSYCHIATRIST (Physician/CORRECTIONAL FACILITY PSYCHIATRIST ) ) ) Arrival Mode Wheelchair Wheelchair Stretcher Transfer Assistance Kelli Lift Kelli Lift Manual, Stretcher Patient Identification Verified (Name & Yes Yes ) Patient Requires Transmission-Based No Precautions Vital Signs Temperature (97.8 F-99.1 F) 97.7 F L 96.9 F L 98.2 F Temperature Source Temporal Temporal Temporal Pulse Rate (60-100) 106 H 96 98 Pulse Location Monitor Monitor Monitor Respiratory Rate (12-18) 18 18 Respiratory rate source Observation Observation Oxygen Delivery Method Room Air Blood Pressure (90/60-120/80) 128/72 H 143/83 H 132/57 H Blood Pressure Mean (mm Hg) 90 103 82 Source Monitor Monitor Monitor Position Sitting Semi-Fowlers Blood Pressure Location Left Arm History Since Last Visit- (Skip if this is Patient's initial visit) Have you changed medications since your No No No last visit? Any new allergies or adverse reactions No No No Had a fall/change in ADL's that may No No No increase risk of falls Signs or symptoms of abuse and/or No No No neglect since last visit Have you been in the hospital since your No No No last visit? Has dressing in place as prescribed Yes Yes Yes Has compression in place as prescribed N/A N/A N/A Has offloadiing in place as prescribed Yes Yes N/A Experienced any changes in pain level or No No No management Left Footwear Other Footwear No Footwear (Comment) Right Footwear Other Footwear No Footwear (Comment) Other Footwear heel protectors Pain Scale: 0-10 Numeric Is Patient Pain Free? Yes Yes Yes WC - Nurse 1 - General Ulcer Measurement Start: 11/23/24 08:42 Freq: Status: Active Protocol: Activity Type Activity Date Activity User E-sign Co-sign Detail Recorded Client Recorded Date Recorded By Document 11/23/24 08:42 RB [id number] 11/23/24 08:46 RB Document 11/30/24 08:54 DL [id number] 11/30/24 09:12 DL Document 12/07/24 09:38 KW [id number] 12/07/24 09:40 KW 11/23/24 11/30/24 12/07/24 08:42 08:54 09:38 Wound Center Nurse 1 #5 Right Heel Blister -Combined with other wound No -Current Size (cm) - Length 0.1 -Current Size (cm) - Width 0.1 -Current Size (cm) - Depth 0.1 -Total Square Cm 0.01 -Date of Last Picture (Recall this 11/23/24 field) -Photo Taken Yes -Epithelialization Large 67-100% #4 Left Heel Blister -Combined with other wound No -Current Size (cm) - Length 0.1 -Current Size (cm) - Width 0.1 -Current Size (cm) - Depth 0.1 -Total Square Cm 0.01 -Date of Last Picture (Recall this 11/23/24 field) -Photo Taken Yes -Epithelialization Large 67-100% 3. R ischium -Combined with other wound No -Current Size (cm) - Length 7.5 7 -Current Size (cm) - Width 6 5 -Current Size (cm) - Depth 0.1 0.1 -Total Square Cm 45.0 35 -Date of Last Picture (Recall this 11/23/24 field) -Photo Taken Yes -Tunneling No -Undermining/Tunneling No -Circular Undermining No -Exudate Amt Large Large Medium -Exudate Type Serosanguineous Serosanguineous Serosanguineous -Wound Margin Distinct, Fibrotic Scar, Thickened Outline Thickened Scar Attached -Granulation Amt Large (67-100%) Large (67-100%) Large (67-100%) -Granulation Quality Red Red Red -Slough/Fibrin Yes -Necrosis Amt Small (1-33%) None Present (0 %) -Necrotic Tissue Type Adherent Slough -Structure Exposed N/A -Texture (Trish-wound Skin Appearance) Assessed, Friable, Assessed Friable, Scarring,Rash Scarring -Moisture (Trish-wound Skin Appearance) Assessed No Abnormality Assessed -Color (Trish-wound Skin Appearance) Assessed, No Abnormality Assessed Erythema -Temperature (Trish-wound Skin No Abnormality No Abnormality No Abnormality Appearance) (Pt Warm) (Pt Warm) (Pt Warm) -Tenderness on Palpation (Trish-wound No Yes Skin Appearance) -Ulcer Cleansing Soap and Water Soap and Water Soap and Water -Foul Odor after Cleansing No No No -Anesthetic Used 4% Lidocaine 4% Lidocaine 5% Lidocaine Solution Solution Gel 2. L ischium -Combined with other wound No -Current Size (cm) - Length 1 -Current Size (cm) - Width 1 -Current Size (cm) - Depth 0.1 -Total Square Cm 1 -Date of Last Picture (Recall this 11/23/24 field) -Photo Taken Yes -Tunneling No -Undermining/Tunneling No -Circular Undermining No -Exudate Amt Large -Exudate Type Serosanguineous -Wound Margin Distinct, Outline Attached -Granulation Amt Large (67-100%) -Granulation Quality Red -Slough/Fibrin Yes -Necrosis Amt Small (1-33%) -Necrotic Tissue Type Adherent Slough -Texture (Trish-wound Skin Appearance) Assessed, Friable, Scarring -Moisture (Trish-wound Skin Appearance) Assessed -Color (Trish-wound Skin Appearance) Assessed, Erythema -Temperature (Trish-wound Skin No Abnormality Appearance) (Pt Warm) -Tenderness on Palpation (Trish-wound No Skin Appearance) -Ulcer Cleansing Soap and Water -Foul Odor after Cleansing No -Anesthetic Used 4% Lidocaine Solution *1. coccyx -Combined with other wound No -Current Size (cm) - Length 8.5 12 -Current Size (cm) - Width 15 4.8 -Current Size (cm) - Depth 0.5 0.1 -Total Square Cm 127.5 57.6 -Date of Last Picture (Recall this 11/23/24 field) -Photo Taken Yes -Tunneling No -Undermining/Tunneling No -Circular Undermining No -Exudate Amt Large Large Medium -Exudate Type Serosanguineous Serosanguineous Serosanguineous -Wound Margin Fibrotic Scar, Thickened Thickened Scar -Granulation Amt Large (67-100%) Large (67-100%) Large (67-100%) -Granulation Quality Red Red Red -Slough/Fibrin Yes -Necrosis Amt Small (1-33%) None Present (0 %) -Necrotic Tissue Type Adherent Slough -Structure Exposed N/A -Texture (Trish-wound Skin Appearance) Assessed, Scarring Assessed Friable, Scarring -Moisture (Trish-wound Skin Appearance) Assessed Dry/Scaly Assessed,Dry/ Scaly -Color (Trish-wound Skin Appearance) Assessed Assessed -Temperature (Trish-wound Skin No Abnormality No Abnormality No Abnormality Appearance) (Pt Warm) (Pt Warm) (Pt Warm) -Tenderness on Palpation (Trish-wound No No Skin Appearance) -Ulcer Cleansing Soap and Water Soap and Water Soap and Water -Foul Odor after Cleansing No No No -Anesthetic Used 4% Lidocaine 4% Lidocaine 5% Lidocaine Solution Solution Gel WC - Nurse 2 - General Ulcer CM Notes Start: 11/23/24 08:42 Freq: Status: Active Protocol: Activity Type Activity Date Activity User E-sign Co-sign Detail Recorded Client Recorded Date Recorded By Document 11/23/24 09:46 GM [id number] 11/23/24 10:01 GM Edit Result 11/23/24 09:46 GM (1) [id number] 11/23/24 10:02 GM Document 11/30/24 10:47 DS [id number] 11/30/24 10:57 DS Document 12/07/24 10:03 DS [id number] 12/07/24 10:20 DS (1) 3. R ischium - Bleeding Controlled with Pressure => Pressure,Silver => Nitrate ($) 11/23/24 11/30/24 12/07/24 09:46 10:47 10:03 Wound Center Nurse 2 3. R ischium -Time 09:47 10:47 10:16 -Correct Patient Yes Yes Yes -Correct Side, Site, Position Yes Yes Yes -Correct Procedure Yes Yes -Procedure Performed Yes No Yes -Type of Procedure Debridement Debridement -Clinical Debridement Muscle / Fascia Subcutaneous -Tissue Removed Muscle Subcutaneous -Post Debridement (cm) - Length 10.0 12.0 -Post Debridement (cm) - Width 5.5 5.5 -Post Debridement (cm) - Depth 0.1 0.1 -Total Square (Post) (cm) 55.00 66.00 -Area of Debridement (cm) - Length 10.0 12.0 -Area of Debridement (cm) - Width 5.5 5.5 -Total Square (Area) (cm) 55.00 66.00 -Tunneling No -Undermining/Tunneling No -Circular Undermining No No -Wound/Ulcer Outcome Not Healed Not Healed Not Healed -Ulcer Cleansing Rinsed/ Rinsed/ Irrigated with Irrigated with Saline Saline -Foul Odor after Cleansing No No -Bioengineered Tissue No No -Bleeding Controlled with Pressure,Silver Pressure Nitrate ($) -Treatment Response Procedure Procedure Tolerated Well Tolerated Well -Offloading No -Debridement - Subq, 1st 20sq cm Yes -Debridement, SubQ, ea addt'l 20sq cm 3 or part thereof -Debridement - Muscle / Fascia, 1st No 20sq cm 2. L ischium -Time 09:48 10:19 -Correct Patient Yes Yes -Correct Side, Site, Position Yes Yes -Correct Procedure No -Procedure Performed No No -Post Debridement (cm) - Length 3.5 -Post Debridement (cm) - Width 2.0 -Post Debridement (cm) - Depth 0.1 -Total Square (Post) (cm) 7.00 -Area of Debridement (cm) - Length 3.5 -Area of Debridement (cm) - Width 2.0 -Total Square (Area) (cm) 7.00 -Tunneling No No -Undermining/Tunneling No No -Circular Undermining No No -Wound/Ulcer Outcome Healed- Not Healed Epithelialized -Ulcer Cleansing Not Cleansed -Foul Odor after Cleansing No -Bioengineered Tissue No -Bleeding Controlled with NA *1. coccyx -Time 09:48 10:47 10:18 -Correct Patient Yes Yes Yes -Correct Side, Site, Position Yes Yes Yes -Correct Procedure Yes Yes -Procedure Performed Yes No Yes -Type of Procedure Debridement Debridement -Clinical Debridement Muscle / Fascia Muscle / Fascia -Tissue Removed Muscle Muscle -Post Debridement (cm) - Length 13.0 16.5 -Post Debridement (cm) - Width 15.0 15 -Post Debridement (cm) - Depth 13.0 0.1 -Total Square (Post) (cm) 195.00 247.5 -Area of Debridement (cm) - Length 13.0 16.5 -Area of Debridement (cm) - Width 15.0 15.0 -Total Square (Area) (cm) 195.00 247.50 -Tunneling No No -Undermining/Tunneling No No -Circular Undermining No -Wound/Ulcer Outcome Not Healed Not Healed -Ulcer Cleansing Not Cleansed Rinsed/ Irrigated with Saline -Foul Odor after Cleansing No No -Bioengineered Tissue No No -Bleeding Controlled with Pressure Pressure -Treatment Response Procedure Procedure Tolerated Well Tolerated Well -Offloading No -Assistive Device(s) Wheelchair -Pressure Reduction Wheelchair cushion -Debridement - Muscle / Fascia, 1st Yes Yes 20sq cm -Debridement, Muscle/Fascia, ea addt'l 12 12 20sq cm or part thereof Pain Scale: 0-10 Numeric Is Patient Pain Free? Yes Yes Yes WC - Nurse 3 - General Ulcer D/C NN Start: 11/23/24 08:42 Freq: Status: Active Protocol: Activity Type Activity Date Activity User E-sign Co-sign Detail Recorded Client Recorded Date Recorded By Document 11/23/24 10:17 [facility] [id number] 11/23/24 10:19 BM Document 11/30/24 13:17 DL [id number] 11/30/24 13:18 DL Document 12/07/24 10:43 KW [id number] 12/07/24 10:46 KW 11/23/24 11/30/24 12/07/24 10:17 13:17 10:43 Wound Care Center Nurse 3 3. R ischium -Ulcer Cleansing Soap and Water Soap and Water -Foul Odor after Cleansing No No -Primary Dressing Applied Aquacel AG 4x4 Aquacel AG 4x4 -Other Dressing dakins wet to Dakins fluffed dakins dry, abd pad, moistened gauze gauze drsgs per rb rn -Primary Dressing Covered/Secured with Secured with Dry Gauze, Dry Gauze, Tape Secured with Secured with Tape Tape -Other Covering ABD -Aquacel AG 2x2 1 -Aquacel AG 4x4 1 1 2. L ischium -Other Dressing aquacel ag with fluffed dakins gauze -Primary Dressing Covered/Secured with Dry Gauze, Secured with Tape *1. coccyx -Ulcer Cleansing Soap and Water Soap and Water -Foul Odor after Cleansing No -Other Dressing dakins wet to Aquacel AG/ aquacel ag with dry, abd pads, Dakins fluffed dakins drsgs per rb rn moistened gauze gauze -Primary Dressing Covered/Secured with Secured with Dry Gauze, Dry Gauze, Tape Secured with Secured with Tape Tape -Other Covering ABD Treatment Response Procedure Procedure Tolerated Well Tolerated Well Pain Scale: 0-10 Numeric Is Patient Pain Free? Yes Yes Yes WC - Visit Discharge Discharge Condition Stable Stable Stable Ambulatory Status Wheelchair Wheelchair Stretcher Transportation ecf Private Auto Medication Reconcilliation completed & No provided to patient/care provider Clinical Summary of Care Provided Yes Notes: [facility] Facility Type Lightning Protection Installer Care [facility] Facility Notes: kristi heels pad/ protected w/ gauze Orders Sent Yes Additional Wound Wound debrided: right ischium Laterality: Right Wound Grade/Stage: Stage III Type of Debridement: Excisional debridement Anesthesia Used: 4% Lidocaine Solution Depth: Down to and including healthy tissue and in the subcutaneous layer Percentage of wound debrided: 100 Instrument Used: 7mm curette Tissue Removed: Yellow slough, devitalized tissue Severity: Fat Layer Exposed Amount of bleeding with debridement: Mild Bleeding Controlled with: Compression and gauze Patient tolerated procedure: Patient tolerated procedure well Additional Wound Wound debrided: coccyx Laterality: Not Applicable Wound Grade/Stage: Stage IV Type of Debridement: Excisional debridement Anesthesia Used: 4% Lidocaine Solution Depth: Down to and including healthy tissue, in the subcutaneous layer and to muscle Percentage of wound debrided: 100 Instrument Used: 7mm curette Tissue Removed: Yellow slough, devitalized tissue Severity: Necrosis of Muscle Amount of bleeding with debridement: Mild Bleeding Controlled with: Compression and gauze Patient tolerated procedure: Patient tolerated procedure well Assessment/Plan Assessment/Plan (1) Chronic pain: CODE(S): G89.29 - Other chronic pain QUALIFIERS: Chronic pain type: chronic pain syndrome Qualified Code(s): G89.4 - Chronic pain syndrome (2) Hypoxia: CODE(S): R09.02 - Hypoxemia (3) History of paraplegia: CODE(S): Z86.69 - Personal history of other diseases of the nervous system and sense organs (4) Chronic indwelling Campbell catheter: CODE(S): Z97.8 - Presence of other specified devices (5) Type 2 diabetes mellitus: CODE(S): E11.9 - Type 2 diabetes mellitus without complications QUALIFIERS: Diabetes mellitus long-term insulin use: without long-term use Diabetes mellitus complication status: with neurologic complications Diabetes mellitus complication detail: with polyneuropathy Qualified Code(s): E11.42 - Type 2 diabetes mellitus with diabetic polyneuropathy (6) Chronic anticoagulation: CODE(S): Z79.01 - intermission coordinator (current) use of anticoagulants (7) History of deep vein thrombosis: CODE(S): Z86.718 - Personal history of other venous thrombosis and embolism (8) Decubitus ulcer of sacral region, stage 4: CODE(S): L89.154 - Pressure ulcer of sacral region, stage 4 (9) Decubitus ulcer of left perineal ischial region, stage 2: CODE(S): L89.322 - Pressure ulcer of left buttock, stage 2 (10) Hx of spinal surgery: CODE(S): Z98.890 - Other specified postprocedural states (11) Colostomy status: CODE(S): Z93.3 - Colostomy status (12) HTN (hypertension): CODE(S): I10 - Essential (primary) hypertension QUALIFIERS: Hypertension type: primary hypertension Qualified Code(s): I10 - Essential (primary) hypertension (13) BATOOL treated with BiPAP: CODE(S): G47.33 - Obstructive sleep apnea (adult) (pediatric) (14) Lymphedema: CODE(S): I89.0 - Lymphedema, not elsewhere classified (15) Decubitus ulcer of right ischium, stage 3: CODE(S): L89.313 - Pressure ulcer of right buttock, stage 3 PLAN: Plan Debridement performed today in clinic as annotated above. At home wound-care instructions: The patient's ulcers will be washed with antibacterial soap and water and then will use Aquacel Ag and Dakins wet to dry to wound bed and cover with gauze and superabsorber for heavy drainage twice daily. Keep dressing clean and dry. Left heel and right lateral foot will be padded with heel protectors daily. Off-loading: The patient was instructed to avoid pressure and friction on the affected areas. Reposition every 2 hours at minimum. Avoid prolonged standing and/or dangling of legs. When seated, feet should be elevated at chest level. Continue air mattress. Order has been written for alternating pressure air mattress to assist in offloading pressure to his ulcers. He now has alternating pressure air mattress to assist in offloading. Diet: Patient encouraged to increase protein intake while taking caution to avoid high carbohydrate and/or sugar intake. He is getting W[place] protein supplement at [facility]. Labs/cultures/imaging: Will obtain previous imaging results. Most recent A1C 7.9% on 07/23/24. Wound culture showed multiple bacteria and he has completed on Flagyl and Cefdinir. IV antibiotic completed on Tuesday. Culture positive for multiple bacteria and VRE and MDR Klebsiella. He was started on Levofloxacin and Flagyl and a probiotic as he has also tested positive for C. Diff and will refer him for evaluation to Infectious disease for possible IV antibiotic treatment or other treatment recommendations due to his multiple organisms and resistance. Will also consider repeat MRI of his sacrum to evaluate for any changes of bone. Follow-up: Return in 1 week for wound care. Return sooner or report to the emergency room should symptoms worsen, or new symptoms arise. Note: [employer] speech recognition meat grader software was used to create portions of this document. Sound-alike and misspelled words, as well as other meat grader errors may be contained in the documentation.
== END 2024-12-13 23:59 | disposition home or self-care (01) ==
LOC: WC 09:15
PROVIDERS: PCP Internal Medicine; Referring Provider Internal Medicine; Visit Provider Family Medicine
DX: L89.154 Pressure ulcer of sacral region, stage 4 (principal); L89.313 Pressure ulcer of right buttock, stage 3; G82.20 Paraplegia, unspecified; L89.322 Pressure ulcer of left buttock, stage 2; Z93.3 Colostomy status; E11.42 Type 2 diabetes mellitus with diabetic polyneuropathy; Z79.4 Long term (current) use of insulin; I10 Essential (primary) hypertension; I89.0 Lymphedema, not elsewhere classified; M54.9 Dorsalgia, unspecified; G47.33 Obstructive sleep apnea (adult) (pediatric); R09.02 Hypoxemia; G89.4 Chronic pain syndrome; Z79.01 Long term (current) use of anticoagulants; Z79.84 Long term (current) use of oral hypoglycemic drugs; Z79.85 Long-term (current) use of injectable non-insulin antidiabetic drugs; Z79.899 Other long term (current) drug therapy; Z86.718 Personal history of other venous thrombosis and embolism
CPT/HCPCS: 11042; 11043; 11045; 11046; 87070; 87075; 87077; 87186; 87205; 99213; G0463

== ENCOUNTER → 2024-12-10 04:00 | Outpatient (REF) | payer MEDICAID, SELFPAY ==
[2024-12-10 08:23] LABS: Hematocrit 32.4 % (40-54); Hemoglobin 8.9 g/dL (13.0-16.5); Immature Granulocytes Count 0.070 X10^3/uL (0.0-0.0); Mean Corp Hgb Conc 27.5 g/dL (32-36); Mean Corpuscular Volume 77.3 fL (80-94); Mean Platelet Vol. 9.8 fl (6.2-12.0); NRBC Flagged by Analyzer 0 % (0-5); Platelet Count 361 K/mm3 (150-450); RBC Distribution Width CV 18.1 % (11.6-14.6); RBC Distribution Width SD 50.1 fl (35.1-43.9); Red Blood Count 4.19 M/mm3 (4.6-6.2); White Blood Count 10.0 K/mm3 (4.4-11.0)
[2024-12-10 08:31] LABS: Anion Gap 13 (5-15); BUN 19 mg/dL (4-19); BUN/Creat Ratio 29.0 RATIO (10-20); Calcium,Total 8.9 mg/dL (7.6-11.0); Carbon Dioxide 32.2 mmol/L (21.0-32.0); Chloride 93 mmol/L (98-108); Glucose 216 mg/dL (70-99); Potassium 4.0 mmol/L (3.3-5.1)
== END ==
LOC: OLS.WHLEAS 04:00
PROVIDERS: PCP Internal Medicine; Referring Provider Internal Medicine; Visit Provider Internal Medicine
DX: I11.0 Hypertensive heart disease with heart failure (principal); J18.9 Pneumonia, unspecified organism; E11.42 Type 2 diabetes mellitus with diabetic polyneuropathy; J96.21 Acute and chronic respiratory failure with hypoxia; G82.20 Paraplegia, unspecified; I50.33 Acute on chronic diastolic (congestive) heart failure
CPT/HCPCS: 36415; 80048; 85025

== ENCOUNTER → 2024-12-17 | Outpatient (REF) | payer MEDICAID, SELFPAY ==
[2024-12-17 08:58] LABS: Hematocrit 31.7 % (40-54); Hemoglobin 8.8 g/dL (13.0-16.5); Immature Granulocytes Count 0.060 X10^3/uL (0.0-0.0); Mean Corp Hgb Conc 27.8 g/dL (32-36); Mean Corpuscular Volume 77.9 fL (80-94); Mean Platelet Vol. 10.1 fl (6.2-12.0); NRBC Flagged by Analyzer 0 % (0-5); Platelet Count 371 K/mm3 (150-450); RBC Distribution Width CV 18.3 % (11.6-14.6); RBC Distribution Width SD 51.3 fl (35.1-43.9); Red Blood Count 4.07 M/mm3 (4.6-6.2); White Blood Count 11.3 K/mm3 (4.4-11.0)
[2024-12-17 09:09] LABS: Anion Gap 12 (5-15); BUN 26 mg/dL (4-19); BUN/Creat Ratio 37.8 RATIO (10-20); Calcium,Total 9.2 mg/dL (7.6-11.0); Carbon Dioxide 30.0 mmol/L (21.0-32.0); Chloride 92 mmol/L (98-108); Glucose 307 mg/dL (70-99); Potassium 4.7 mmol/L (3.3-5.1)
== END | disposition home or self-care (01) ==
LOC: OLS.WHLEAS 05:00
PROVIDERS: PCP Internal Medicine; Visit Provider Internal Medicine
DX: I10 Essential (primary) hypertension (principal)
CPT/HCPCS: 36415; 80048; 85025

== ENCOUNTER 2025-01-04 09:30 | Outpatient (RCR) | payer MEDICAID, SELFPAY ==
[2024-12-14 09:39] VITALS: BP 129/80; PULSE 104; RESP 16; TEMP 36.3
--- NOTE | 2024-12-14 15:14 | PCM.WC.PN ---
History of Present Illness Date of Service: 12/14/24 Chief Complaint: sacral decubitus ulcer History of Wound: Jani is a pleasant 59 yo gentleman that has undergone an unfortunate series of events over the last several years which has left him paraplegic and with a sacral decubitus ulcer and residing in [facility]. He has been referred to the wound center for evaluation and treatment of his sacral ulcer. He has had a long history of degenerative disc disease of his spine and underwent spine surgery in August 2016 initially and then again in February 2017 due to osteomyelitis and infection of hardware. He underwent further surgery for fusion in December of 2020. He fell in November of 2022 getting up from his chair and then experienced worsening pain, weakness in his legs and ultimately became paraplegic from the waist down. He underwent surgery in [place] in January 2023 at [facility] and then had several complications including pneumonia, pulmonary embolisms and a sacral ulcer that developed into a large defect after multiple surgical debridements and osteomyelitis of his sacrum while at [facility] through the first part 2023 and then attempted to come home to be cared for by his elderly mother which was not successful and he was hospitalized and discharged to [facility] where he has been residing and continues to reside. He has undergone many different treatments for his sacral ulcer including wound vac, silver dressings and Dakins and does have an air mattress but it is not an alternating pressure air mattress. The staff does try to offload his ulcer with wedges and pillows but it is difficult due to his chronic back pain. He is currently having the wound dressed with Dakins wet to dry and super absorber dressings twice daily. he reports being on chronic antibiotic treatment and IV treatment over the past year and states that he had MRI that showed resolution of osteomyelitis. (Records unavailable). Subjective Subjective Jani returns today for evaluation and treatment of a sacral decubitus ulcer. He has been tolerating dressing changes with Dakins and super absorber dressings. He underwent IV antibiotic treatment for 2 weeks for positive cultures. He has been doing better and feeling better after treatment for C. diff and with IV antibiotics for positive wound cultures which were completed yesterday. Denies fever, chills, erythema. Objective Data Objective Data Vital Signs: Vital Signs Temp Pulse Resp BP O2 Del Method 97.4 F L 104 H 16 129/80 H Room Air 12/14/24 09:39 12/14/24 09:39 12/14/24 09:39 12/14/24 09:39 12/14/24 09:39 Oxygen Delivery Method Room Air Physical Exam Const alert, oriented x3, no apparent distress and well nourished Constitutional Narrative: Morbidly obese, middle-aged, white male, sitting up in bed, appears comfortable and nontoxic General Appearance: cooperative and comfortable Nutritional Appearance: morbidly obese HEENT head/scalp atraumatic and moist oral mucous membranes Resp normal respiratory effort, no retractions, no use of accessory muscles and clear to auscultation bilaterally Resp Narrative: Distant due to body habitus Cardio regular rate, regular rhythm, S1 normal heart sound, S2 normal heart sound, no murmurs, no rub, no gallops and no clicks GI normal to inspection, nondistended, normoactive bowel sounds, soft to palpation and non-tender GI Narrative: colostomy present Extremity Extremity Narrative: Chronic bilateral lower extremity edema due to history of paraplegia and lack of movement, no cyanosis or clubbing General Extremity: edema bilateral lower extremity Details: moderate Skin Wounds: wounds noted Wound Narrative: as noted in clinical panel - large sacral ulcer and right ischial ulcer, no visible bone, shearing injury of left ischial area, area is irregular with fringe like skin in areas from repetitive shearing and pressure, friable and bleeding easily Neuro oriented x3, CN's II-XII intact bilaterally, No moves all extremities, No no focal motor deficits and No no sensory deficits noted Neuro Narrative: Bilateral lower extremity flaccidity due to history of L1 injury Speech: speech normal Psych affect normal Psych Narrative: Very pleasant, interacts appropriately Debridement Note Debridement Note Wound debrided: left ischium Laterality: Left No debridement was completed: No debridement was completed today Post-Debridement Measurements and Additional Note: Post-Debridement Measurements/Treatment - Nurse 1 - General Ulcer Assessment Start: 12/14/24 09:39 Freq: Status: Active Protocol: ELENA Activity Type Activity Date Activity User E-sign Co-sign Detail Recorded Client Recorded Date Recorded By Document 12/14/24 09:39 CP [id number] 12/14/24 09:40 CP 12/14/24 09:39 - Today's Visit Information Type of service Follow-up Visit (Physician/PRODUCT MARKETING ANALYST ) Arrival Mode Wheelchair Transfer Assistance Kelli Lift Patient Identification Verified (Name & Yes ) Patient Requires Transmission-Based No Precautions Safety Precautions Fall Prevention Vital Signs Temperature (97.8 F-99.1 F) 97.4 F L Temperature Source Temporal Pulse Rate (60-100) 104 H Pulse Location Monitor Respiratory Rate (12-18) 16 Respiratory rate source Observation Oxygen Delivery Method Room Air Blood Pressure (90/60-120/80) 129/80 H Blood Pressure Mean (mm Hg) 96 Source Monitor Position Sitting Blood Pressure Location Left Forearm History Since Last Visit- (Skip if this is Patient's initial visit) Have you changed medications since your No last visit? Any new allergies or adverse reactions No Had a fall/change in ADL's that may No increase risk of falls Signs or symptoms of abuse and/or No neglect since last visit Have you been in the hospital since your No last visit? Has dressing in place as prescribed Yes Has compression in place as prescribed N/A Has offloadiing in place as prescribed N/A Experienced any changes in pain level or No management Left Footwear No Footwear Right Footwear No Footwear Pain Scale: 0-10 Numeric Is Patient Pain Free? Yes WC - Nurse 1 - General Ulcer Measurement Start: 12/14/24 09:39 Freq: Status: Active Protocol: Activity Type Activity Date Activity User E-sign Co-sign Detail Recorded Client Recorded Date Recorded By Document 12/14/24 09:40 CP [id number] 12/14/24 10:00 CP 12/14/24 09:40 Wound Center Nurse 1 3. R ischium -Current Size (cm) - Length 13 -Current Size (cm) - Width 5 -Current Size (cm) - Depth 0.1 -Total Square Cm 65 -Photo Taken Yes -Exudate Amt Medium -Exudate Type Serosanguineous -Wound Margin Flat & Intact -Granulation Amt Large (67-100%) -Granulation Quality [place] -Slough/Fibrin Yes -Necrosis Amt Small (1-33%) -Necrotic Tissue Type Adherent Slough -Moisture (Trish-wound Skin Appearance) Dry/Scaly -Color (Trish-wound Skin Appearance) No Abnormality -Temperature (Trish-wound Skin No Abnormality Appearance) (Pt Warm) -Ulcer Cleansing Soap and Water -Foul Odor after Cleansing No 2. L ischium -Current Size (cm) - Length 0.1 -Current Size (cm) - Width 0.1 -Current Size (cm) - Depth 0.1 -Total Square Cm 0.01 -Photo Taken Yes -Moisture (Trish-wound Skin Appearance) Dry/Scaly -Wound Comment(s) sheering *1. coccyx -Current Size (cm) - Length 15 -Current Size (cm) - Width 15.5 -Current Size (cm) - Depth 0.1 -Total Square Cm 232.5 -Photo Taken Yes -Exudate Amt Small -Wound Margin Flat & Intact -Granulation Amt Large (67-100%) -Granulation Quality [place] -Slough/Fibrin Yes -Necrosis Amt Small (1-33%) -Necrotic Tissue Type Adherent Slough -Moisture (Trish-wound Skin Appearance) No Abnormality -Color (Trish-wound Skin Appearance) No Abnormality -Temperature (Trish-wound Skin No Abnormality Appearance) (Pt Warm) -Tenderness on Palpation (Trish-wound No Skin Appearance) -Ulcer Cleansing Soap and Water -Foul Odor after Cleansing No WC - Nurse 2 - General Ulcer CM Notes Start: 12/14/24 09:39 Freq: Status: Active Protocol: Activity Type Activity Date Activity User E-sign Co-sign Detail Recorded Client Recorded Date Recorded By Document 12/14/24 10:20 [id number] 12/14/24 10:42 GM 12/14/24 10:20 Wound Center Nurse 2 3. R ischium -Time 10:29 -Correct Patient Yes -Correct Side, Site, Position Yes -Correct Procedure Yes -Procedure Performed Yes -Type of Procedure Debridement -Clinical Debridement Subcutaneous -Tissue Removed Subcutaneous -Post Debridement (cm) - Length 15.0 -Post Debridement (cm) - Width 6.0 -Post Debridement (cm) - Depth 0.1 -Total Square (Post) (cm) 90.00 -Area of Debridement (cm) - Length 15 -Area of Debridement (cm) - Width 6.0 -Total Square (Area) (cm) 90.0 -Tunneling No -Undermining/Tunneling No -Circular Undermining No -Wound/Ulcer Outcome Not Healed -Ulcer Cleansing Rinsed/ Irrigated with Saline -Foul Odor after Cleansing No -Bioengineered Tissue No -Bleeding Controlled with Pressure -Treatment Response Procedure Tolerated Well -Debridement - Subq, 1st 20sq cm Yes -Debridement, SubQ, ea addt'l 20sq cm 4 or part thereof 2. L ischium -Time 10:31 -Correct Patient Yes -Correct Side, Site, Position Yes -Correct Procedure No -Procedure Performed No -Tunneling No -Undermining/Tunneling No -Circular Undermining No -Wound/Ulcer Outcome Not Healed -Ulcer Cleansing Rinsed/ Irrigated with Saline -Foul Odor after Cleansing No -Bioengineered Tissue No *1. coccyx -Time 10:32 -Correct Patient Yes -Correct Side, Site, Position Yes -Correct Procedure Yes -Procedure Performed Yes -Type of Procedure Debridement -Clinical Debridement Muscle / Fascia -Tissue Removed Muscle -Post Debridement (cm) - Length 17.0 -Post Debridement (cm) - Width 12.5 -Post Debridement (cm) - Depth 0.1 -Total Square (Post) (cm) 212.50 -Area of Debridement (cm) - Length 17.0 -Area of Debridement (cm) - Width 12.5 -Total Square (Area) (cm) 212.50 -Tunneling No -Undermining/Tunneling No -Circular Undermining No -Wound/Ulcer Outcome Not Healed -Ulcer Cleansing Rinsed/ Irrigated with Saline -Foul Odor after Cleansing No -Bioengineered Tissue No -Bleeding Controlled with Pressure -Treatment Response Procedure Tolerated Well -Offloading No -Debridement - Muscle / Fascia, 1st Yes 20sq cm -Debridement, Muscle/Fascia, ea addt'l 10 20sq cm or part thereof Pain Scale: 0-10 Numeric Is Patient Pain Free? Yes WC - Nurse 3 - General Ulcer D/C NN Start: 12/14/24 09:39 Freq: Status: Active Protocol: Activity Type Activity Date Activity User E-sign Co-sign Detail Recorded Client Recorded Date Recorded By Document 12/14/24 11:43 CP [id number] 12/14/24 11:45 CP 12/14/24 11:43 Wound Care Center Nurse 3 3. R ischium -Ulcer Cleansing Rinsed/ Irrigated with Saline -Primary Dressing Covered/Secured with Dry Gauze, Secured with Tape 2. L ischium -Ulcer Cleansing Rinsed/ Irrigated with Saline -Primary Dressing Applied Aquacel AG 4x4 -Other Dressing dakins gauze -Primary Dressing Covered/Secured with Dry Gauze, Secured with Tape -Aquacel AG 4x4 1 *1. coccyx -Ulcer Cleansing Rinsed/ Irrigated with Saline -Primary Dressing Applied Aquacel AG 4x4 -Other Dressing dakins gauze -Primary Dressing Covered/Secured with Dry Gauze, Secured with Tape -Aquacel AG 4x4 1 Pain Scale: 0-10 Numeric Is Patient Pain Free? Yes WC - Visit Discharge Discharge Condition Stable Ambulatory Status Wheelchair Clinical Summary of Care Provided Yes Facility Type Custodial Care Facility Orders Sent Yes Additional Wound Wound debrided: right ischium Laterality: Right Wound Grade/Stage: Stage III Type of Debridement: Excisional debridement Anesthesia Used: 4% Lidocaine Solution Depth: Down to and including healthy tissue and in the subcutaneous layer Percentage of wound debrided: 100 Instrument Used: 7mm curette Tissue Removed: Yellow slough, devitalized tissue Severity: Fat Layer Exposed Amount of bleeding with debridement: Mild Bleeding Controlled with: Compression and gauze Patient tolerated procedure: Patient tolerated procedure well Additional Wound Wound debrided: coccyx Laterality: Not Applicable Wound Grade/Stage: Stage IV Type of Debridement: Excisional debridement Anesthesia Used: 4% Lidocaine Solution Depth: Down to and including healthy tissue, in the subcutaneous layer and to muscle Percentage of wound debrided: 100 Instrument Used: 7mm curette Tissue Removed: Yellow slough, devitalized tissue Severity: Necrosis of Muscle Amount of bleeding with debridement: Mild Bleeding Controlled with: Compression and gauze Patient tolerated procedure: Patient tolerated procedure well Assessment/Plan Assessment/Plan (1) Chronic pain: CODE(S): G89.29 - Other chronic pain QUALIFIERS: Chronic pain type: chronic pain syndrome Qualified Code(s): G89.4 - Chronic pain syndrome (2) Hypoxia: CODE(S): R09.02 - Hypoxemia (3) History of paraplegia: CODE(S): Z86.69 - Personal history of other diseases of the nervous system and sense organs (4) Chronic indwelling Campbell catheter: CODE(S): Z97.8 - Presence of other specified devices (5) Type 2 diabetes mellitus: CODE(S): E11.9 - Type 2 diabetes mellitus without complications QUALIFIERS: Diabetes mellitus complication detail: with polyneuropathy Diabetes mellitus complication status: with neurologic complications Diabetes mellitus prison insulin use: without prison use Qualified Code(s): E11.42 - Type 2 diabetes mellitus with diabetic polyneuropathy (6) Chronic anticoagulation: CODE(S): Z79.01 - group home (current) use of anticoagulants (7) History of deep vein thrombosis: CODE(S): Z86.718 - Personal history of other venous thrombosis and embolism (8) Decubitus ulcer of sacral region, stage 4: CODE(S): L89.154 - Pressure ulcer of sacral region, stage 4 (9) Decubitus ulcer of left perineal ischial region, stage 2: CODE(S): L89.322 - Pressure ulcer of left buttock, stage 2 (10) Hx of spinal surgery: CODE(S): Z98.890 - Other specified postprocedural states (11) Colostomy status: CODE(S): Z93.3 - Colostomy status (12) HTN (hypertension): CODE(S): I10 - Essential (primary) hypertension QUALIFIERS: Hypertension type: primary hypertension Qualified Code(s): I10 - Essential (primary) hypertension (13) BATOOL treated with BiPAP: CODE(S): G47.33 - Obstructive sleep apnea (adult) (pediatric) (14) Lymphedema: CODE(S): I89.0 - Lymphedema, not elsewhere classified (15) Decubitus ulcer of right ischium, stage 3: CODE(S): L89.313 - Pressure ulcer of right buttock, stage 3 PLAN: Plan Debridement performed today in clinic as annotated above. At home wound-care instructions: The patient's ulcers will be washed with antibacterial soap and water and then will use Aquacel Ag and Dakins wet to dry to wound bed and cover with gauze and superabsorber for heavy drainage twice daily. Keep dressing clean and dry. Left heel and right lateral foot will be padded with heel protectors daily. Off-loading: The patient was instructed to avoid pressure and friction on the affected areas. Reposition every 2 hours at minimum. Avoid prolonged standing and/or dangling of legs. When seated, feet should be elevated at chest level. Continue air mattress. Order has been written for alternating pressure air mattress to assist in offloading pressure to his ulcers. He now has alternating pressure air mattress to assist in offloading. Diet: Patient encouraged to increase protein intake while taking caution to avoid high carbohydrate and/or sugar intake. He is getting [place] protein supplement at [facility]. Labs/cultures/imaging: Will obtain previous imaging results. Most recent A1C 7.9% on 07/23/24. Wound culture showed multiple bacteria and he has completed on Flagyl and Cefdinir. IV antibiotic completed on Tuesday. Culture positive for multiple bacteria and VRE and MDR Klebsiella. He completed Levofloxacin and Flagyl. Wound culture performed again to day to see if previous noted infections cleared. Will also consider repeat MRI of his sacrum to evaluate for any changes of bone. Follow-up: Return in 1 week for wound care. Return sooner or report to the emergency room should symptoms worsen, or new symptoms arise. Note: [employer] speech recognition dynamics ax developer software was used to create portions of this document. Sound-alike and misspelled words, as well as other dynamics ax developer errors may be contained in the documentation.
--- NOTE | 2024-12-17 10:39 | WC ---
PHOTO-RIGHT ISCHIUM 12/14/24
--- NOTE | 2024-12-17 10:39 | WC ---
PHOTO-COCCYX 12/14/24
--- NOTE | 2024-12-17 10:40 | WC ---
PHOTO-ISCHIUM 12/14/24
[2024-12-21 10:06] VITALS: BP 118/74; PULSE 96; RESP 16; TEMP 35.9
--- NOTE | 2024-12-21 11:29 | PCM.WC.PN ---
History of Present Illness Date of Service: 12/21/24 Chief Complaint: sacral decubitus ulcer History of Wound: Jani is a pleasant 59 yo gentleman that has undergone an unfortunate series of events over the last several years which has left him paraplegic and with a sacral decubitus ulcer and residing in [facility]. He has been referred to the wound center for evaluation and treatment of his sacral ulcer. He has had a long history of degenerative disc disease of his spine and underwent spine surgery in August 2016 initially and then again in February 2017 due to osteomyelitis and infection of hardware. He underwent further surgery for fusion in December of 2020. He fell in November of 2022 getting up from his chair and then experienced worsening pain, weakness in his legs and ultimately became paraplegic from the waist down. He underwent surgery in [place] in January 2023 at [facility] and then had several complications including pneumonia, pulmonary embolisms and a sacral ulcer that developed into a large defect after multiple surgical debridements and osteomyelitis of his sacrum while at [facility] through the first part 2023 and then attempted to come home to be cared for by his elderly mother which was not successful and he was hospitalized and discharged to [facility] where he has been residing and continues to reside. He has undergone many different treatments for his sacral ulcer including wound vac, silver dressings and Dakins and does have an air mattress but it is not an alternating pressure air mattress. The staff does try to offload his ulcer with wedges and pillows but it is difficult due to his chronic back pain. He is currently having the wound dressed with Dakins wet to dry and super absorber dressings twice daily. he reports being on chronic antibiotic treatment and IV treatment over the past year and states that he had MRI that showed resolution of osteomyelitis. (Records unavailable). Subjective Subjective Jani returns today for evaluation and treatment of a sacral decubitus ulcer. He has been tolerating dressing changes with Dakins and super absorber dressings. He transferred care from [facility] Tuesday to [facility] in [place]. He has been doing ok. Denies fever, chills, erythema. Objective Data Objective Data Vital Signs: Vital Signs Temp Pulse Resp BP O2 Del Method O2 Flow Rate 96.7 F L 96 16 118/74 Nasal Cannula 3 12/21/24 10:06 12/21/24 10:06 12/21/24 10:06 12/21/24 10:06 12/21/24 10:06 12/21/24 10:06 Oxygen Flow Rate (L/min) 3 Oxygen Delivery Method Nasal Cannula Lab / Micro Data Micro: Microbiology 12/14/24 10:36 Wound - Sacral Gram Stain - Final 12/14/24 10:36 Wound - Sacral Wound Culture - Final Meth. resistant Staph. aureus Enterococcus faecalis Corynebacterium striatum ESBL Escherichia coli Pseudomonas aeruginosa 12/14/24 10:36 Wound - Sacral Anaerobic Culture - Final Anaerobic cocci Veillonella spp Anaerobic cocci#2 Physical Exam Const alert, oriented x3, no apparent distress and well nourished Constitutional Narrative: Morbidly obese, middle-aged, white male, sitting up in bed, appears comfortable and nontoxic General Appearance: cooperative and comfortable Nutritional Appearance: morbidly obese HEENT head/scalp atraumatic and moist oral mucous membranes Resp normal respiratory effort, no retractions, no use of accessory muscles and clear to auscultation bilaterally Resp Narrative: Distant due to body habitus Cardio regular rate, regular rhythm, S1 normal heart sound, S2 normal heart sound, no murmurs, no rub, no gallops and no clicks GI normal to inspection, nondistended, normoactive bowel sounds, soft to palpation and non-tender GI Narrative: colostomy present Extremity Extremity Narrative: Chronic bilateral lower extremity edema due to history of paraplegia and lack of movement, no cyanosis or clubbing General Extremity: edema bilateral lower extremity Details: moderate Skin Wounds: wounds noted Wound Narrative: as noted in clinical panel - large sacral ulcer and right ischial ulcer, no visible bone, shearing injury of left ischial area, area is irregular with fringe like skin in areas from repetitive shearing and pressure, friable and bleeding easily, posterior scrotal area with bruising and fringed shearing of tissue and friability Neuro oriented x3, CN's II-XII intact bilaterally, No moves all extremities, No no focal motor deficits and No no sensory deficits noted Neuro Narrative: Bilateral lower extremity flaccidity due to history of L1 injury Speech: speech normal Psych affect normal Psych Narrative: Very pleasant, interacts appropriately Debridement Note Debridement Note Wound debrided: left ischium Laterality: Left No debridement was completed: No debridement was completed today Post-Debridement Measurements and Additional Note: Post-Debridement Measurements/Treatment - Nurse 1 - General Ulcer Assessment Start: 12/14/24 09:39 Freq: Status: Active Protocol: ELENA Activity Type Activity Date Activity User E-sign Co-sign Detail Recorded Client Recorded Date Recorded By Document 12/14/24 09:39 CP [id number] 12/14/24 09:40 CP Document 12/21/24 10:06 KW [id number] 12/21/24 10:08 KW 12/14/24 12/21/24 09:39 10:06 BONITA - Today's Visit Information Type of service Follow-up Visit Follow-up Visit (Physician/WATER SERVICE DISPATCHER (Physician/WATER SERVICE DISPATCHER ) ) Arrival Mode Wheelchair Wheelchair Transfer Assistance Kelli Lift Patient Identification Verified (Name & Yes Yes ) Patient Requires Transmission-Based No Precautions Safety Precautions Fall Prevention Vital Signs Temperature (97.8 F-99.1 F) 97.4 F L 96.7 F L Temperature Source Temporal Temporal Pulse Rate (60-100) 104 H 96 Pulse Location Monitor Monitor Respiratory Rate (12-18) 16 16 Respiratory rate source Observation Observation Oxygen Delivery Method Room Air Nasal Cannula O2 L/MIN (L/min) 3 Blood Pressure (90/60-120/80) 129/80 H 118/74 Blood Pressure Mean (mm Hg) 96 88 Source Monitor Monitor Position Sitting Sitting Blood Pressure Location Left Forearm Left Forearm History Since Last Visit- (Skip if this is Patient's initial visit) Have you changed medications since your No No last visit? Any new allergies or adverse reactions No No Had a fall/change in ADL's that may No No increase risk of falls Signs or symptoms of abuse and/or No No neglect since last visit Have you been in the hospital since your No No last visit? Has dressing in place as prescribed Yes Yes Has compression in place as prescribed N/A N/A Has offloadiing in place as prescribed N/A N/A Experienced any changes in pain level or No No management Left Footwear No Footwear No Footwear Right Footwear No Footwear No Footwear Pain Scale: 0-10 Numeric Is Patient Pain Free? Yes Yes BONITA Gibson Nurse 1 - General Ulcer Measurement Start: 12/14/24 09:39 Freq: Status: Active Protocol: Activity Type Activity Date Activity User E-sign Co-sign Detail Recorded Client Recorded Date Recorded By Document 12/14/24 09:40 CP [id number] 12/14/24 10:00 CP Document 12/21/24 10:06 KW [id number] 12/21/24 10:08 KW 12/14/24 12/21/24 09:40 10:06 Wound Center Nurse 1 2. L ischium -Current Size (cm) - Length 0.1 -Current Size (cm) - Width 0.1 -Current Size (cm) - Depth 0.1 -Total Square Cm 0.01 -Photo Taken Yes -Exudate Amt Large -Exudate Type Serosanguineous -Wound Margin Thickened -Granulation Amt Large (67-100%) -Granulation Quality Red -Texture (Trish-wound Skin Appearance) Assessed -Moisture (Trish-wound Skin Appearance) Dry/Scaly Assessed -Color (Trish-wound Skin Appearance) Assessed -Temperature (Trish-wound Skin No Abnormality Appearance) (Pt Warm) -Tenderness on Palpation (Trish-wound No Skin Appearance) -Ulcer Cleansing Soap and Water -Foul Odor after Cleansing No -Anesthetic Used 4% Lidocaine Solution -Wound Comment(s) sheering 3. R ischium -Current Size (cm) - Length 13 -Current Size (cm) - Width 5 -Current Size (cm) - Depth 0.1 -Total Square Cm 65 -Photo Taken Yes -Exudate Amt Medium Large -Exudate Type Serosanguineous Serosanguineous -Wound Margin Flat & Intact Thickened -Granulation Amt Large (67-100%) Large (67-100%) -Granulation Quality [place] Red -Slough/Fibrin Yes -Necrosis Amt Small (1-33%) -Necrotic Tissue Type Adherent Slough -Texture (Trish-wound Skin Appearance) Assessed -Moisture (Trish-wound Skin Appearance) Dry/Scaly Assessed -Color (Trish-wound Skin Appearance) No Abnormality Assessed, Erythema -Temperature (Trish-wound Skin No Abnormality No Abnormality Appearance) (Pt Warm) (Pt Warm) -Tenderness on Palpation (Trish-wound No Skin Appearance) -Ulcer Cleansing Soap and Water Soap and Water -Foul Odor after Cleansing No No -Anesthetic Used 4% Lidocaine Solution *1. coccyx -Current Size (cm) - Length 15 -Current Size (cm) - Width 15.5 -Current Size (cm) - Depth 0.1 -Total Square Cm 232.5 -Photo Taken Yes -Exudate Amt Small Large -Exudate Type Serosanguineous -Wound Margin Flat & Intact Thickened & Rolled Under -Granulation Amt Large (67-100%) Large (67-100%) -Granulation Quality [place],Red -Slough/Fibrin Yes -Necrosis Amt Small (1-33%) -Necrotic Tissue Type Adherent Slough -Texture (Trish-wound Skin Appearance) Assessed -Moisture (Trish-wound Skin Appearance) No Abnormality Assessed -Color (Trish-wound Skin Appearance) No Abnormality Assessed, Erythema -Temperature (Trish-wound Skin No Abnormality No Abnormality Appearance) (Pt Warm) (Pt Warm) -Tenderness on Palpation (Trish-wound No No Skin Appearance) -Ulcer Cleansing Soap and Water Soap and Water -Foul Odor after Cleansing No No -Anesthetic Used 4% Lidocaine Solution WC - Nurse 2 - General Ulcer CM Notes Start: 12/14/24 09:39 Freq: Status: Active Protocol: Activity Type Activity Date Activity User E-sign Co-sign Detail Recorded Client Recorded Date Recorded By Document 12/14/24 10:20 [id number] 12/14/24 10:42 Document 12/21/24 10:51 [id number] 12/21/24 11:05 12/14/24 12/21/24 10:20 10:51 Wound Center Nurse 2 2. L ischium -Time 10:31 -Correct Patient Yes -Correct Side, Site, Position Yes -Correct Procedure No -Procedure Performed No -Tunneling No -Undermining/Tunneling No -Circular Undermining No -Wound/Ulcer Outcome Not Healed -Ulcer Cleansing Rinsed/ Irrigated with Saline -Foul Odor after Cleansing No -Bioengineered Tissue No #14 Posterior Scrotum -Time 11:04 -Correct Patient Yes -Correct Side, Site, Position Yes -Correct Procedure Yes -Procedure Performed Yes -Type of Procedure Debridement -Clinical Debridement Subcutaneous -Tissue Removed Subcutaneous -Post Debridement (cm) - Length 5.0 -Post Debridement (cm) - Width 2.0 -Post Debridement (cm) - Depth 0.1 -Total Square (Post) (cm) 10.00 -Area of Debridement (cm) - Length 5.0 -Area of Debridement (cm) - Width 2.0 -Total Square (Area) (cm) 10.00 -Tunneling No -Undermining/Tunneling No -Circular Undermining No -Wound/Ulcer Outcome Not Healed -Ulcer Cleansing Rinsed/ Irrigated with Saline -Foul Odor after Cleansing No -Bioengineered Tissue No -Bleeding Controlled with Pressure -Treatment Response Procedure Tolerated Well -Debridement - Subq, 1st 20sq cm Yes -Debridement, SubQ, ea addt'l 20sq cm 2 or part thereof 3. R ischium -Time 10:29 10:51 -Correct Patient Yes Yes -Correct Side, Site, Position Yes Yes -Correct Procedure Yes Yes -Procedure Performed Yes Yes -Type of Procedure Debridement Debridement -Clinical Debridement Subcutaneous Subcutaneous -Tissue Removed Subcutaneous Subcutaneous -Post Debridement (cm) - Length 15.0 10.0 -Post Debridement (cm) - Width 6.0 4.7 -Post Debridement (cm) - Depth 0.1 0.1 -Total Square (Post) (cm) 90.00 47.00 -Area of Debridement (cm) - Length 15 10.0 -Area of Debridement (cm) - Width 6.0 4.7 -Total Square (Area) (cm) 90.0 47.00 -Tunneling No No -Undermining/Tunneling No No -Circular Undermining No No -Wound/Ulcer Outcome Not Healed Not Healed -Ulcer Cleansing Rinsed/ Rinsed/ Irrigated with Irrigated with Saline Saline -Foul Odor after Cleansing No No -Bioengineered Tissue No No -Bleeding Controlled with Pressure Pressure -Treatment Response Procedure Procedure Tolerated Well Tolerated Well -Offloading No -Debridement - Subq, 1st 20sq cm Yes No -Debridement, SubQ, ea addt'l 20sq cm 4 or part thereof *1. coccyx -Time 10:32 10:52 -Correct Patient Yes Yes -Correct Side, Site, Position Yes Yes -Correct Procedure Yes Yes -Procedure Performed Yes Yes -Type of Procedure Debridement Debridement -Clinical Debridement Muscle / Fascia Muscle / Fascia -Tissue Removed Muscle Muscle -Post Debridement (cm) - Length 17.0 16.0 -Post Debridement (cm) - Width 12.5 14.5 -Post Debridement (cm) - Depth 0.1 0.1 -Total Square (Post) (cm) 212.50 232.00 -Area of Debridement (cm) - Length 17.0 16.0 -Area of Debridement (cm) - Width 12.5 14.5 -Total Square (Area) (cm) 212.50 232.00 -Tunneling No No -Undermining/Tunneling No No -Circular Undermining No No -Wound/Ulcer Outcome Not Healed Not Healed -Ulcer Cleansing Rinsed/ Rinsed/ Irrigated with Irrigated with Saline Saline -Foul Odor after Cleansing No No -Bioengineered Tissue No No -Bleeding Controlled with Pressure Pressure -Treatment Response Procedure Procedure Tolerated Well Tolerated Well -Offloading No No -Debridement - Muscle / Fascia, 1st Yes Yes 20sq cm -Debridement, Muscle/Fascia, ea addt'l 10 11 20sq cm or part thereof Pain Scale: 0-10 Numeric Is Patient Pain Free? Yes Yes - Nurse 3 - General Ulcer D/C NN Start: 12/14/24 09:39 Freq: Status: Active Protocol: Activity Type Activity Date Activity User E-sign Co-sign Detail Recorded Client Recorded Date Recorded By Document 12/14/24 11:43 CP [id number] 12/14/24 11:45 CP 12/14/24 11:43 Wound Care Center Nurse 3 2. L ischium -Ulcer Cleansing Rinsed/ Irrigated with Saline -Primary Dressing Applied Aquacel AG 4x4 -Other Dressing dakins gauze -Primary Dressing Covered/Secured with Dry Gauze, Secured with Tape -Aquacel AG 4x4 1 3. R ischium -Ulcer Cleansing Rinsed/ Irrigated with Saline -Primary Dressing Covered/Secured with Dry Gauze, Secured with Tape *1. coccyx -Ulcer Cleansing Rinsed/ Irrigated with Saline -Primary Dressing Applied Aquacel AG 4x4 -Other Dressing dakins gauze -Primary Dressing Covered/Secured with Dry Gauze, Secured with Tape -Aquacel AG 4x4 1 Pain Scale: 0-10 Numeric Is Patient Pain Free? Yes - Visit Discharge Discharge Condition Stable Ambulatory Status Wheelchair Clinical Summary of Care Provided Yes Facility Type Group Home Care Facility Orders Sent Yes Additional Wound Wound debrided: right ischium Laterality: Right Wound Grade/Stage: Stage III Type of Debridement: Excisional debridement Anesthesia Used: 4% Lidocaine Solution Depth: Down to and including healthy tissue and in the subcutaneous layer Percentage of wound debrided: 100 Instrument Used: 7mm curette Tissue Removed: Yellow slough, devitalized tissue Severity: Fat Layer Exposed Amount of bleeding with debridement: Mild Bleeding Controlled with: Compression and gauze Patient tolerated procedure: Patient tolerated procedure well Additional Wound Wound debrided: coccyx Laterality: Not Applicable Wound Grade/Stage: Stage IV Type of Debridement: Excisional debridement Anesthesia Used: 4% Lidocaine Solution Depth: Down to and including healthy tissue, in the subcutaneous layer and to muscle Percentage of wound debrided: 100 Instrument Used: 7mm curette Tissue Removed: Yellow slough, devitalized tissue Severity: Necrosis of Muscle Amount of bleeding with debridement: Mild Bleeding Controlled with: Compression and gauze Patient tolerated procedure: Patient tolerated procedure well Additional Wound Wound debrided: posterior scrotum Laterality: Not Applicable Wound Grade/Stage: Stage 2 Type of Debridement: Excisional debridement Anesthesia Used: 5% Lidocaine Gel Depth: Down to and including healthy tissue and in the subcutaneous layer Percentage of wound debrided: 100 Instrument Used: 5mm curette Severity: Fat Layer Exposed Amount of bleeding with debridement: Mild Bleeding Controlled with: Compression and gauze Patient tolerated procedure: Patient tolerated procedure well Assessment/Plan Assessment/Plan (1) Chronic pain: CODE(S): G89.29 - Other chronic pain QUALIFIERS: Chronic pain type: chronic pain syndrome Qualified Code(s): G89.4 - Chronic pain syndrome (2) Hypoxia: CODE(S): R09.02 - Hypoxemia (3) History of paraplegia: CODE(S): Z86.69 - Personal history of other diseases of the nervous system and sense organs (4) Chronic indwelling Campbell catheter: CODE(S): Z97.8 - Presence of other specified devices (5) Type 2 diabetes mellitus: CODE(S): E11.9 - Type 2 diabetes mellitus without complications QUALIFIERS: Diabetes mellitus complication detail: with polyneuropathy Diabetes mellitus complication status: with neurologic complications Diabetes mellitus [facility] insulin use: without [facility] use Qualified Code(s): E11.42 - Type 2 diabetes mellitus with diabetic polyneuropathy (6) Chronic anticoagulation: CODE(S): Z79.01 - ocean transportation intermediary (current) use of anticoagulants (7) History of deep vein thrombosis: CODE(S): Z86.718 - Personal history of other venous thrombosis and embolism (8) Decubitus ulcer of sacral region, stage 4: CODE(S): L89.154 - Pressure ulcer of sacral region, stage 4 (9) Decubitus ulcer of left perineal ischial region, stage 2: CODE(S): L89.322 - Pressure ulcer of left buttock, stage 2 (10) Hx of spinal surgery: CODE(S): Z98.890 - Other specified postprocedural states (11) Colostomy status: CODE(S): Z93.3 - Colostomy status (12) HTN (hypertension): CODE(S): I10 - Essential (primary) hypertension QUALIFIERS: Hypertension type: primary hypertension Qualified Code(s): I10 - Essential (primary) hypertension (13) BATOOL treated with BiPAP: CODE(S): G47.33 - Obstructive sleep apnea (adult) (pediatric) (14) Lymphedema: CODE(S): I89.0 - Lymphedema, not elsewhere classified (15) Decubitus ulcer of right ischium, stage 3: CODE(S): L89.313 - Pressure ulcer of right buttock, stage 3 PLAN: Plan Debridement performed today in clinic as annotated above. At home wound-care instructions: The patient's ulcers will be washed with antibacterial soap and water and then will use Aquacel Ag and Dakins wet to dry to wound bed and cover with gauze and superabsorber for heavy drainage twice daily. Keep dressing clean and dry. Left heel and right lateral foot will be padded with heel protectors daily. Off-loading: The patient was instructed to avoid pressure and friction on the affected areas. Reposition every 2 hours at minimum. Avoid prolonged standing and/or dangling of legs. When seated, feet should be elevated at chest level. Continue air mattress. Order has been written for alternating pressure air mattress to assist in offloading pressure to his ulcers. He now has alternating pressure air mattress to assist in offloading. Diet: Patient encouraged to increase protein intake while taking caution to avoid high carbohydrate and/or sugar intake. He is getting [place] protein supplement at [facility]. Labs/cultures/imaging: Will obtain previous imaging results. Most recent A1C 7.9% on 07/23/24. Wound culture showed multiple bacteria and he has completed on Flagyl and Cefdinir. IV antibiotic completed on Tuesday. Culture positive for multiple bacteria and VRE and MDR Klebsiella. Will start Flagyl for positive cultures but will hold off on other positive culture results for the time being as these are likely chronic. Will also consider repeat MRI of his sacrum to evaluate for any changes of bone. Follow-up: Return in 1 week for wound care. Return sooner or report to the emergency room should symptoms worsen, or new symptoms arise. Note: [employer] speech recognition political science professor software was used to create portions of this document. Sound-alike and misspelled words, as well as other political science professor errors may be contained in the documentation.
--- NOTE | 2024-12-27 09:28 | WC ---
PHOTO-LEFT HEEL 12/21/24
--- NOTE | 2024-12-27 09:31 | WC ---
PHOTO-COCCYX 12/21/24
[2025-01-04 09:59] VITALS: BP 126/81; PULSE 86; RESP 18; TEMP 35.9
--- NOTE | 2025-01-04 11:29 | WC ---
PHOTO-RIGHT ISCHIUM 01/04/25
--- NOTE | 2025-01-04 11:30 | WC ---
PHOTO-LEFT ISCHIUM 01/04/25
--- NOTE | 2025-01-04 11:30 | WC ---
PHOTO-COCCYX 01/04/25
--- NOTE | 2025-01-04 15:23 | PCM.WC.PN ---
History of Present Illness Date of Service: 01/04/25 Chief Complaint: sacral decubitus ulcer History of Wound: Jani is a pleasant 59 yo gentleman that has undergone an unfortunate series of events over the last several years which has left him paraplegic and with a sacral decubitus ulcer and residing in [facility] in [place]. He has been referred to the wound center for evaluation and treatment of his sacral ulcer. He has had a long history of degenerative disc disease of his spine and underwent spine surgery in August 2016 initially and then again in February 2017 due to osteomyelitis and infection of hardware. He underwent further surgery for fusion in December of 2020. He fell in November of 2022 getting up from his chair and then experienced worsening pain, weakness in his legs and ultimately became paraplegic from the waist down. He underwent surgery in [place] in January 2023 at [facility] and then had several complications including pneumonia, pulmonary embolisms and a sacral ulcer that developed into a large defect after multiple surgical debridements and osteomyelitis of his sacrum while at [facility] through the first part 2023 and then attempted to come home to be cared for by his elderly mother which was not successful and he was hospitalized and discharged to [facility] where he had been residing until December 2024 when he transferred to [facility] in [place]. He has undergone many different treatments for his sacral ulcer including wound vac, silver dressings and Dakins and does have an air mattress but it is not an alternating pressure air mattress. The staff does try to offload his ulcer with wedges and pillows but it is difficult due to his chronic back pain. He is currently having the wound dressed with Dakins wet to dry and super absorber dressings twice daily. he reports being on chronic antibiotic treatment and IV treatment over the past year and states that he had MRI that showed resolution of osteomyelitis. (Records unavailable). Subjective Subjective Jani returns today for evaluation and treatment of a sacral decubitus ulcer. He has been tolerating dressing changes with Dakins and super absorber dressings. He transferred care from [facility] to [facility] in [place]. He has been doing ok. Denies fever, chills, erythema. Objective Data Objective Data Vital Signs: Vital Signs Temp Pulse Resp BP O2 Del Method O2 Flow Rate 96.7 F L 86 18 126/81 H Nasal Cannula 4 01/04/25 09:59 01/04/25 09:59 01/04/25 09:59 01/04/25 09:59 01/04/25 09:59 01/04/25 09:59 Oxygen Flow Rate (L/min) 4 Oxygen Delivery Method Nasal Cannula Lab / Micro Data Micro: Microbiology 12/14/24 10:36 Wound - Sacral Gram Stain - Final 12/14/24 10:36 Wound - Sacral Wound Culture - Final Meth. resistant Staph. aureus Enterococcus faecalis Corynebacterium striatum ESBL Escherichia coli Pseudomonas aeruginosa 12/14/24 10:36 Wound - Sacral Anaerobic Culture - Final Anaerobic cocci Veillonella spp Anaerobic cocci#2 Physical Exam Const alert, oriented x3, no apparent distress and well nourished Constitutional Narrative: Morbidly obese, middle-aged, white male, sitting up in bed, appears comfortable and nontoxic General Appearance: cooperative and comfortable Nutritional Appearance: morbidly obese HEENT head/scalp atraumatic and moist oral mucous membranes Resp normal respiratory effort, no retractions, no use of accessory muscles and clear to auscultation bilaterally Resp Narrative: Distant due to body habitus Cardio regular rate, regular rhythm, S1 normal heart sound, S2 normal heart sound, no murmurs, no rub, no gallops and no clicks GI normal to inspection, nondistended, normoactive bowel sounds, soft to palpation and non-tender GI Narrative: colostomy present Extremity Extremity Narrative: Chronic bilateral lower extremity edema due to history of paraplegia and lack of movement, no cyanosis or clubbing General Extremity: edema bilateral lower extremity Details: moderate Skin Wounds: wounds noted Wound Narrative: as noted in clinical panel - large sacral ulcer and right ischial ulcer, no visible bone, shearing injury of left ischial area, area is irregular with fringe like skin in areas from repetitive shearing and pressure, friable and bleeding easily, posterior scrotal area with bruising and fringed shearing of tissue and friability Neuro oriented x3, CN's II-XII intact bilaterally, No moves all extremities, No no focal motor deficits and No no sensory deficits noted Neuro Narrative: Bilateral lower extremity flaccidity due to history of L1 injury Speech: speech normal Psych affect normal Psych Narrative: Very pleasant, interacts appropriately Debridement Note Debridement Note Wound debrided: left ischium Laterality: Left No debridement was completed: No debridement was completed today Post-Debridement Measurements and Additional Note: Post-Debridement Measurements/Treatment WC - Nurse 1 - General Ulcer Assessment Start: 12/14/24 09:39 Freq: Status: Active Protocol: ELENA Activity Type Activity Date Activity User E-sign Co-sign Detail Recorded Client Recorded Date Recorded By Document 12/14/24 09:39 CP [id number] 12/14/24 09:40 CP Document 12/21/24 10:06 KW [id number] 12/21/24 10:08 KW Document 01/04/25 09:59 KW [id number] 01/04/25 10:18 KW 12/14/24 12/21/24 01/04/25 09:39 10:06 09:59 WC - Today's Visit Information Type of service Follow-up Visit Follow-up Visit (Physician/MANAGER MENTAL HEALTH (Physician/MANAGER MENTAL HEALTH ) ) Arrival Mode Wheelchair Wheelchair Transfer Assistance Kelli Lift Patient Identification Verified (Name & Yes Yes ) Patient Requires Transmission-Based No Precautions Safety Precautions Fall Prevention Vital Signs Temperature (97.8 F-99.1 F) 97.4 F L 96.7 F L 96.7 F L Temperature Source Temporal Temporal Temporal Pulse Rate (60-100) 104 H 96 86 Pulse Location Monitor Monitor Monitor Respiratory Rate (12-18) 16 16 18 Respiratory rate source Observation Observation Observation Oxygen Delivery Method Room Air Nasal Cannula Nasal Cannula O2 L/MIN (L/min) 3 4 Blood Pressure (90/60-120/80) 129/80 H 118/74 126/81 H Blood Pressure Mean (mm Hg) 96 88 96 Source Monitor Monitor Position Sitting Sitting Blood Pressure Location Left Forearm Left Forearm History Since Last Visit- (Skip if this is Patient's initial visit) Have you changed medications since your No No No last visit? Any new allergies or adverse reactions No No No Had a fall/change in ADL's that may No No No increase risk of falls Signs or symptoms of abuse and/or No No No neglect since last visit Have you been in the hospital since your No No No last visit? Has dressing in place as prescribed Yes Yes Yes Has compression in place as prescribed N/A N/A Yes Has offloadiing in place as prescribed N/A N/A N/A Experienced any changes in pain level or No No No management Left Footwear No Footwear No Footwear No Footwear Right Footwear No Footwear No Footwear No Footwear Pain Scale: 0-10 Numeric Is Patient Pain Free? Yes Yes Yes WC - Nurse 1 - General Ulcer Measurement Start: 12/14/24 09:39 Freq: Status: Active Protocol: Activity Type Activity Date Activity User E-sign Co-sign Detail Recorded Client Recorded Date Recorded By Document 12/14/24 09:40 CP [id number] 12/14/24 10:00 CP Document 12/21/24 10:06 KW [id number] 12/21/24 10:08 KW Document 01/04/25 09:59 KW [id number] 01/04/25 10:18 KW 12/14/24 12/21/24 01/04/25 09:40 10:06 09:59 Wound Center Nurse 1 2. L ischium -Current Size (cm) - Length 0.1 -Current Size (cm) - Width 0.1 -Current Size (cm) - Depth 0.1 -Total Square Cm 0.01 -Photo Taken Yes -Exudate Amt Large -Exudate Type Serosanguineous -Wound Margin Thickened -Granulation Amt Large (67-100%) -Granulation Quality Red -Texture (Trish-wound Skin Appearance) Assessed -Moisture (Trish-wound Skin Appearance) Dry/Scaly Assessed -Color (Trish-wound Skin Appearance) Assessed -Temperature (Trish-wound Skin No Abnormality Appearance) (Pt Warm) -Tenderness on Palpation (Trish-wound No Skin Appearance) -Ulcer Cleansing Soap and Water -Foul Odor after Cleansing No -Anesthetic Used 4% Lidocaine Solution -Wound Comment(s) sheering #14 Posterior Scrotum -Exudate Amt Large -Exudate Type Serosanguineous -Wound Margin Thickened & Rolled Under -Granulation Amt Large (67-100%) -Granulation Quality Red -Texture (Trish-wound Skin Appearance) Assessed -Moisture (Trish-wound Skin Appearance) Assessed -Color (Trish-wound Skin Appearance) Assessed -Temperature (Trish-wound Skin No Abnormality Appearance) (Pt Warm) -Tenderness on Palpation (Trish-wound No Skin Appearance) -Ulcer Cleansing Soap and Water -Foul Odor after Cleansing No -Anesthetic Used 4% Lidocaine Solution -Wound Comment(s) did not measure in nurse 1 3. R ischium -Current Size (cm) - Length 13 -Current Size (cm) - Width 5 -Current Size (cm) - Depth 0.1 -Total Square Cm 65 -Photo Taken Yes -Exudate Amt Medium Large Large -Exudate Type Serosanguineous Serosanguineous Serosanguineous -Wound Margin Flat & Intact Thickened Thickened -Granulation Amt Large (67-100%) Large (67-100%) Large (67-100%) -Granulation Quality [place] Red Red -Slough/Fibrin Yes -Necrosis Amt Small (1-33%) -Necrotic Tissue Type Adherent Slough -Texture (Trish-wound Skin Appearance) Assessed Assessed -Moisture (Trish-wound Skin Appearance) Dry/Scaly Assessed Assessed -Color (Trish-wound Skin Appearance) No Abnormality Assessed, Assessed Erythema -Temperature (Trish-wound Skin No Abnormality No Abnormality No Abnormality Appearance) (Pt Warm) (Pt Warm) (Pt Warm) -Tenderness on Palpation (Trish-wound No No Skin Appearance) -Ulcer Cleansing Soap and Water Soap and Water Soap and Water -Foul Odor after Cleansing No No No -Anesthetic Used 4% Lidocaine 4% Lidocaine Solution Solution -Wound Comment(s) did not measure in nurse 1, large amount of old bleeding noted. slowly bleeding currently *1. coccyx -Current Size (cm) - Length 15 -Current Size (cm) - Width 15.5 -Current Size (cm) - Depth 0.1 -Total Square Cm 232.5 -Photo Taken Yes -Exudate Amt Small Large Large -Exudate Type Serosanguineous Serosanguineous -Wound Margin Flat & Intact Thickened & Thickened & Rolled Under Rolled Under -Granulation Amt Large (67-100%) Large (67-100%) Large (67-100%) -Granulation Quality [place],Red Red -Slough/Fibrin Yes -Necrosis Amt Small (1-33%) -Necrotic Tissue Type Adherent Slough -Texture (Trish-wound Skin Appearance) Assessed Assessed -Moisture (Trish-wound Skin Appearance) No Abnormality Assessed Assessed -Color (Trish-wound Skin Appearance) No Abnormality Assessed, Assessed Erythema -Temperature (Trish-wound Skin No Abnormality No Abnormality No Abnormality Appearance) (Pt Warm) (Pt Warm) (Pt Warm) -Tenderness on Palpation (Trish-wound No No No Skin Appearance) -Ulcer Cleansing Soap and Water Soap and Water Soap and Water -Foul Odor after Cleansing No No No -Anesthetic Used 4% Lidocaine 4% Lidocaine Solution Solution -Wound Comment(s) did not measure in nurse 1 WC - Nurse 2 - General Ulcer CM Notes Start: 12/14/24 09:39 Freq: Status: Active Protocol: Activity Type Activity Date Activity User E-sign Co-sign Detail Recorded Client Recorded Date Recorded By Document 12/14/24 10:20 [id number] 12/14/24 10:42 Document 12/21/24 10:51 [id number] 12/21/24 11:05 Document 01/04/25 11:03 [id number] 01/04/25 11:26 12/14/24 12/21/24 01/04/25 10:20 10:51 11:03 Wound Center Nurse 2 2. L ischium -Time 10:31 -Correct Patient Yes -Correct Side, Site, Position Yes -Correct Procedure No -Procedure Performed No -Tunneling No -Undermining/Tunneling No -Circular Undermining No -Wound/Ulcer Outcome Not Healed -Ulcer Cleansing Rinsed/ Irrigated with Saline -Foul Odor after Cleansing No -Bioengineered Tissue No #14 Posterior Scrotum -Time 11:04 11:25 -Correct Patient Yes Yes -Correct Side, Site, Position Yes Yes -Correct Procedure Yes Yes -Procedure Performed Yes Yes -Type of Procedure Debridement Debridement -Clinical Debridement Subcutaneous Subcutaneous -Tissue Removed Subcutaneous Subcutaneous -Post Debridement (cm) - Length 5.0 3.0 -Post Debridement (cm) - Width 2.0 1.0 -Post Debridement (cm) - Depth 0.1 0.1 -Total Square (Post) (cm) 10.00 3.00 -Area of Debridement (cm) - Length 5.0 3.0 -Area of Debridement (cm) - Width 2.0 1.0 -Total Square (Area) (cm) 10.00 3.00 -Tunneling No No -Undermining/Tunneling No No -Circular Undermining No No -Wound/Ulcer Outcome Not Healed Not Healed -Ulcer Cleansing Rinsed/ Rinsed/ Irrigated with Irrigated with Saline Saline -Foul Odor after Cleansing No No -Bioengineered Tissue No No -Bleeding Controlled with Pressure Pressure -Treatment Response Procedure Procedure Tolerated Well Tolerated Well -Offloading No -Debridement - Subq, 1st 20sq cm Yes No -Debridement, SubQ, ea addt'l 20sq cm 2 or part thereof 3. R ischium -Time 10:29 10:51 11:23 -Correct Patient Yes Yes Yes -Correct Side, Site, Position Yes Yes Yes -Correct Procedure Yes Yes Yes -Procedure Performed Yes Yes Yes -Type of Procedure Debridement Debridement Debridement -Clinical Debridement Subcutaneous Subcutaneous Subcutaneous -Tissue Removed Subcutaneous Subcutaneous Subcutaneous -Post Debridement (cm) - Length 15.0 10.0 14.0 -Post Debridement (cm) - Width 6.0 4.7 4.0 -Post Debridement (cm) - Depth 0.1 0.1 0.1 -Total Square (Post) (cm) 90.00 47.00 56.00 -Area of Debridement (cm) - Length 15 10.0 14.0 -Area of Debridement (cm) - Width 6.0 4.7 4.0 -Total Square (Area) (cm) 90.0 47.00 56.00 -Tunneling No No No -Undermining/Tunneling No No No -Circular Undermining No No No -Wound/Ulcer Outcome Not Healed Not Healed Not Healed -Ulcer Cleansing Rinsed/ Rinsed/ Rinsed/ Irrigated with Irrigated with Irrigated with Saline Saline Saline -Foul Odor after Cleansing No No No -Bioengineered Tissue No No No -Bleeding Controlled with Pressure Pressure Pressure -Treatment Response Procedure Procedure Procedure Tolerated Well Tolerated Well Tolerated Well -Offloading No No -Debridement - Subq, 1st 20sq cm Yes No Yes -Debridement, SubQ, ea addt'l 20sq cm 4 1 or part thereof *1. coccyx -Time 10:32 10:52 11:05 -Correct Patient Yes Yes Yes -Correct Side, Site, Position Yes Yes Yes -Correct Procedure Yes Yes Yes -Procedure Performed Yes Yes Yes -Type of Procedure Debridement Debridement Debridement -Clinical Debridement Muscle / Fascia Muscle / Fascia Subcutaneous -Tissue Removed Muscle Muscle Muscle -Post Debridement (cm) - Length 17.0 16.0 15 -Post Debridement (cm) - Width 12.5 14.5 14 -Post Debridement (cm) - Depth 0.1 0.1 0.1 -Total Square (Post) (cm) 212.50 232.00 210 -Area of Debridement (cm) - Length 17.0 16.0 15 -Area of Debridement (cm) - Width 12.5 14.5 14 -Total Square (Area) (cm) 212.50 232.00 210 -Tunneling No No No -Undermining/Tunneling No No No -Circular Undermining No No No -Wound/Ulcer Outcome Not Healed Not Healed Not Healed -Ulcer Cleansing Rinsed/ Rinsed/ Rinsed/ Irrigated with Irrigated with Irrigated with Saline Saline Saline -Foul Odor after Cleansing No No No -Bioengineered Tissue No No No -Bleeding Controlled with Pressure Pressure Pressure -Treatment Response Procedure Procedure Procedure Tolerated Well Tolerated Well Tolerated Well -Offloading No No No -Debridement - Subq, 1st 20sq cm Yes -Debridement - Muscle / Fascia, 1st Yes Yes 20sq cm -Debridement, Muscle/Fascia, ea addt'l 10 11 20sq cm or part thereof Pain Scale: 0-10 Numeric Is Patient Pain Free? Yes Yes Yes WC - Nurse 3 - General Ulcer D/C NN Start: 12/14/24 09:39 Freq: Status: Active Protocol: Activity Type Activity Date Activity User E-sign Co-sign Detail Recorded Client Recorded Date Recorded By Document 12/14/24 11:43 CP [id number] 12/14/24 11:45 CP Document 12/21/24 12:21 KW [id number] 12/21/24 12:27 KW Document 01/04/25 13:16 RB [id number] 01/04/25 13:19 RB 12/14/24 12/21/24 01/04/25 11:43 12:21 13:16 Wound Care Center Nurse 3 2. L ischium -Ulcer Cleansing Rinsed/ Irrigated with Saline -Primary Dressing Applied Aquacel AG 4x4 -Other Dressing dakins gauze -Primary Dressing Covered/Secured with Dry Gauze, Secured with Tape -Aquacel AG 4x4 1 #14 Posterior Scrotum -Primary Dressing Applied Aquacel AG 4x4 Aquacel Extra -Other Dressing abd -Primary Dressing Covered/Secured with Dry Gauze, Secured with Tape -Aquacel Extra 1 -Aquacel AG 4x4 2 3. R ischium -Ulcer Cleansing Rinsed/ Irrigated with Saline -Other Dressing dakins dakins moistened gauze /ABD -Primary Dressing Covered/Secured with Dry Gauze, Dry Gauze, Secured with Secured with Tape Tape *1. coccyx -Ulcer Cleansing Rinsed/ Irrigated with Saline -Primary Dressing Applied Aquacel AG 4x4 -Other Dressing dakins gauze dakins dakins moistened gauze / ABD -Primary Dressing Covered/Secured with Dry Gauze, Dry Gauze, Secured with Secured with Tape Tape -Aquacel AG 4x4 1 Treatment Response Procedure Tolerated Well Pain Scale: 0-10 Numeric Is Patient Pain Free? Yes Yes No WC - Visit Discharge Discharge Condition Stable Stable Stable Ambulatory Status Wheelchair Wheelchair Wheelchair Transportation [facility] Medication Reconcilliation completed & No No provided to patient/care provider Clinical Summary of Care Provided Yes Yes Yes Notes: kelli lift x 2 assists Facility Type Care Home Care Facility Orders Sent Yes Additional Wound Wound debrided: right ischium Laterality: Right Wound Grade/Stage: Stage III Type of Debridement: Excisional debridement Anesthesia Used: 4% Lidocaine Solution Depth: Down to and including healthy tissue and in the subcutaneous layer Percentage of wound debrided: 100 Instrument Used: 7mm curette Tissue Removed: Yellow slough, devitalized tissue Severity: Fat Layer Exposed Amount of bleeding with debridement: Mild Bleeding Controlled with: Compression and gauze Patient tolerated procedure: Patient tolerated procedure well Additional Wound Wound debrided: coccyx Laterality: Not Applicable Wound Grade/Stage: Stage IV Type of Debridement: Excisional debridement Anesthesia Used: 4% Lidocaine Solution Depth: Down to and including healthy tissue, in the subcutaneous layer and to muscle Percentage of wound debrided: 100 Instrument Used: 7mm curette Tissue Removed: Yellow slough, devitalized tissue Severity: Necrosis of Muscle Amount of bleeding with debridement: Mild Bleeding Controlled with: Compression and gauze Patient tolerated procedure: Patient tolerated procedure well Additional Wound Wound debrided: posterior scrotum Laterality: Not Applicable Wound Grade/Stage: Stage 2 Type of Debridement: Excisional debridement Anesthesia Used: 5% Lidocaine Gel Depth: Down to and including healthy tissue and in the subcutaneous layer Percentage of wound debrided: 100 Instrument Used: 5mm curette Severity: Fat Layer Exposed Amount of bleeding with debridement: Mild Bleeding Controlled with: Compression and gauze Patient tolerated procedure: Patient tolerated procedure well Assessment/Plan Assessment/Plan (1) Chronic pain: CODE(S): G89.29 - Other chronic pain QUALIFIERS: Chronic pain type: chronic pain syndrome Qualified Code(s): G89.4 - Chronic pain syndrome (2) Hypoxia: CODE(S): R09.02 - Hypoxemia (3) History of paraplegia: CODE(S): Z86.69 - Personal history of other diseases of the nervous system and sense organs (4) Chronic indwelling Campbell catheter: CODE(S): Z97.8 - Presence of other specified devices (5) Type 2 diabetes mellitus: CODE(S): E11.9 - Type 2 diabetes mellitus without complications QUALIFIERS: Diabetes mellitus complication detail: with polyneuropathy Diabetes mellitus complication status: with neurologic complications Diabetes mellitus prison insulin use: without prison use Qualified Code(s): E11.42 - Type 2 diabetes mellitus with diabetic polyneuropathy (6) Chronic anticoagulation: CODE(S): Z79.01 - senior living (current) use of anticoagulants (7) History of deep vein thrombosis: CODE(S): Z86.718 - Personal history of other venous thrombosis and embolism (8) Decubitus ulcer of sacral region, stage 4: CODE(S): L89.154 - Pressure ulcer of sacral region, stage 4 (9) Decubitus ulcer of left perineal ischial region, stage 2: CODE(S): L89.322 - Pressure ulcer of left buttock, stage 2 (10) Hx of spinal surgery: CODE(S): Z98.890 - Other specified postprocedural states (11) Colostomy status: CODE(S): Z93.3 - Colostomy status (12) HTN (hypertension): CODE(S): I10 - Essential (primary) hypertension QUALIFIERS: Hypertension type: primary hypertension Qualified Code(s): I10 - Essential (primary) hypertension (13) BATOOL treated with BiPAP: CODE(S): G47.33 - Obstructive sleep apnea (adult) (pediatric) (14) Lymphedema: CODE(S): I89.0 - Lymphedema, not elsewhere classified (15) Decubitus ulcer of right ischium, stage 3: CODE(S): L89.313 - Pressure ulcer of right buttock, stage 3 PLAN: Plan Debridement performed today in clinic as annotated above. At home wound-care instructions: The patient's ulcers will be washed with antibacterial soap and water and then will use Aquacel Ag and Dakins wet to dry to wound bed and cover with gauze and superabsorber for heavy drainage twice daily. Keep dressing clean and dry. Left heel and right lateral foot will be padded with heel protectors daily. Off-loading: The patient was instructed to avoid pressure and friction on the affected areas. Reposition every 2 hours at minimum. Avoid prolonged standing and/or dangling of legs. When seated, feet should be elevated at chest level. Continue air mattress. Order has been written for alternating pressure air mattress to assist in offloading pressure to his ulcers. He now has alternating pressure air mattress to assist in offloading. Diet: Patient encouraged to increase protein intake while taking caution to avoid high carbohydrate and/or sugar intake. He is getting [place] protein supplement at [facility]. Labs/cultures/imaging: Will obtain previous imaging results. Most recent A1C 7.9% on 07/23/24. Wound culture showed multiple bacteria and he has completed on Flagyl and Cefdinir. IV antibiotic completed on Tuesday. Culture positive for multiple bacteria and VRE and MDR Klebsiella. Will start Flagyl for positive cultures but will hold off on other positive culture results for the time being as these are likely chronic. Will also consider repeat MRI of his sacrum to evaluate for any changes of bone. Follow-up: Return in 1 week for wound care. Return sooner or report to the emergency room should symptoms worsen, or new symptoms arise. Note: [employer] speech recognition residential direct support professional software was used to create portions of this document. Sound-alike and misspelled words, as well as other residential direct support professional errors may be contained in the documentation.
== END 2025-01-13 23:59 | disposition home or self-care (01) ==
LOC: WC 09:30
PROVIDERS: PCP Internal Medicine; Referring Provider Internal Medicine; Visit Provider Family Medicine
DX: L89.154 Pressure ulcer of sacral region, stage 4 (principal); L89.313 Pressure ulcer of right buttock, stage 3; G82.20 Paraplegia, unspecified; L89.322 Pressure ulcer of left buttock, stage 2; Z93.3 Colostomy status; E11.42 Type 2 diabetes mellitus with diabetic polyneuropathy; I10 Essential (primary) hypertension; R09.02 Hypoxemia; G89.4 Chronic pain syndrome; G47.33 Obstructive sleep apnea (adult) (pediatric); M54.9 Dorsalgia, unspecified; I89.0 Lymphedema, not elsewhere classified; Z79.01 Long term (current) use of anticoagulants; Z79.899 Other long term (current) drug therapy; Z87.39 Personal history of other diseases of the musculoskeletal system and connective tissue; Z86.718 Personal history of other venous thrombosis and embolism
CPT/HCPCS: 11042; 11043; 11045; 11046; 87070; 87075; 87077; 87186; 87205

== ENCOUNTER 2025-01-18 10:19 | Outpatient (RCR) | payer MEDICAID, SELFPAY ==
[2025-01-18 11:18] VITALS: BP 135/79; PULSE 98; RESP 17; TEMP 36.6
--- NOTE | 2025-01-18 13:40 | WC ---
PHOTO-LEFT LATERAL LEG 01/18/25
--- NOTE | 2025-01-18 13:41 | WC ---
[email or web address] 01/18/25
--- NOTE | 2025-01-18 15:19 | PCM.WC.PN ---
History of Present Illness Date of Service: 01/18/25 Chief Complaint: sacral decubitus ulcer History of Wound: Jani is a pleasant 59 yo gentleman that has undergone an unfortunate series of events over the last several years which has left him paraplegic and with a sacral decubitus ulcer and residing in [facility] in [place]. He has been referred to the wound center for evaluation and treatment of his sacral ulcer. He has had a long history of degenerative disc disease of his spine and underwent spine surgery in August 2016 initially and then again in February 2017 due to osteomyelitis and infection of hardware. He underwent further surgery for fusion in December of 2020. He fell in November of 2022 getting up from his chair and then experienced worsening pain, weakness in his legs and ultimately became paraplegic from the waist down. He underwent surgery in [place] in January 2023 at [facility] and then had several complications including pneumonia, pulmonary embolisms and a sacral ulcer that developed into a large defect after multiple surgical debridements and osteomyelitis of his sacrum while at [facility] through the first part 2023 and then attempted to come home to be cared for by his elderly mother which was not successful and he was hospitalized and discharged to [facility] where he had been residing until December 2024 when he transferred to [facility] in [place]. He has undergone many different treatments for his sacral ulcer including wound vac, silver dressings and Dakins and does have an air mattress but it is not an alternating pressure air mattress. The staff does try to offload his ulcer with wedges and pillows but it is difficult due to his chronic back pain. He is currently having the wound dressed with Dakins wet to dry and super absorber dressings twice daily. he reports being on chronic antibiotic treatment and IV treatment over the past year and states that he had MRI that showed resolution of osteomyelitis. (Records unavailable). Subjective Subjective Jani returns today for evaluation and treatment of a sacral decubitus ulcer. He has been tolerating dressing changes with Dakins and super absorber dressings. He transferred care from [facility] to [facility] in [place]. He has been doing ok. Denies fever, chills, erythema. Objective Data Objective Data Vital Signs: Vital Signs Temp Pulse Resp BP 97.8 F 98 17 135/79 H 01/18/25 11:18 01/18/25 11:18 01/18/25 11:18 01/18/25 11:18 Physical Exam Const alert, oriented x3, no apparent distress and well nourished Constitutional Narrative: Morbidly obese, middle-aged, white male, sitting up in bed, appears comfortable and nontoxic General Appearance: cooperative and comfortable Nutritional Appearance: morbidly obese HEENT head/scalp atraumatic and moist oral mucous membranes Resp normal respiratory effort, no retractions, no use of accessory muscles and clear to auscultation bilaterally Resp Narrative: Distant due to body habitus Cardio regular rate, regular rhythm, S1 normal heart sound, S2 normal heart sound, no murmurs, no rub, no gallops and no clicks GI normal to inspection, nondistended, normoactive bowel sounds, soft to palpation and non-tender GI Narrative: colostomy present Extremity Extremity Narrative: Chronic bilateral lower extremity edema due to history of paraplegia and lack of movement, no cyanosis or clubbing General Extremity: edema bilateral lower extremity Details: moderate Skin Wounds: wounds noted Wound Narrative: as noted in clinical panel - large sacral ulcer and right ischial ulcer, no visible bone, shearing injury of left ischial area, area is irregular with fringe like skin in areas from repetitive shearing and pressure, friable and bleeding easily, posterior scrotal area with bruising and fringed shearing of tissue and friability Neuro oriented x3, CN's II-XII intact bilaterally, No moves all extremities, No no focal motor deficits and No no sensory deficits noted Neuro Narrative: Bilateral lower extremity flaccidity due to history of L1 injury Speech: speech normal Psych affect normal Psych Narrative: Very pleasant, interacts appropriately Debridement Note Debridement Note Wound debrided: left ischium Laterality: Left Type of Debridement: Excisional debridement Anesthesia Used: 4% Lidocaine Solution Depth: Down to and including healthy tissue and in the subcutaneous layer Percentage of wound debrided: 100 Instrument Used: 5mm curette, #15 blade and Forceps Severity: Fat Layer Exposed Amount of bleeding with debridement: SEVERE Bleeding Controlled with: Pressure, Compression and gauze, Gel Foam and - (electrocautery) Patient tolerated procedure: Patient tolerated procedure well Debridement Free Text: Significant bleeding occurred that was difficult to control with pressure and gel foam, suture attempted but was unsuccessful and ultimately bleeding controlled with electrocautery of bleeding vessel No debridement was completed: No debridement was completed today Post-Debridement Measurements and Additional Note: Post-Debridement Measurements/Treatment - Nurse 1 - General Ulcer Assessment Start: 01/18/25 11:11 Freq: Status: Active Protocol: ELENA Activity Type Activity Date Activity User E-sign Co-sign Detail Recorded Client Recorded Date Recorded By Document 01/18/25 11:18 CLOVER [id number] 01/18/25 11:34 01/18/25 11:18 - Today's Visit Information Type of service Follow-up Visit (Physician/DISTILLERY WORKER GENERAL ) Arrival Mode Wheelchair Transfer Assistance Kelli Lift Patient Identification Verified (Name & Yes ) Patient Requires Transmission-Based No Precautions Vital Signs Temperature (97.8 F-99.1 F) 97.8 F Temperature Source Temporal Pulse Rate (60-100) 98 Pulse Location Monitor Respiratory Rate (12-18) 17 Respiratory rate source Observation Blood Pressure (90/60-120/80) 135/79 H Blood Pressure Mean (mm Hg) 97 Source Monitor Position Sitting Blood Pressure Location Right Arm History Since Last Visit- (Skip if this is Patient's initial visit) Have you changed medications since your No last visit? Any new allergies or adverse reactions No Had a fall/change in ADL's that may No increase risk of falls Signs or symptoms of abuse and/or No neglect since last visit Have you been in the hospital since your No last visit? Has dressing in place as prescribed No Has compression in place as prescribed N/A Has offloadiing in place as prescribed N/A Experienced any changes in pain level or No management Pain Scale: 0-10 Numeric Is Patient Pain Free? Yes - Nurse 1 - General Ulcer Measurement Start: 01/18/25 11:11 Freq: Status: Active Protocol: Activity Type Activity Date Activity User E-sign Co-sign Detail Recorded Client Recorded Date Recorded By Document 01/18/25 11:18 KW [id number] 01/18/25 11:34 01/18/25 11:18 Wound Center Nurse 1 #5 Right Heel Blister -Current Size (cm) - Length 0.1 -Current Size (cm) - Width 0.1 -Current Size (cm) - Depth 0.1 -Total Square Cm 0.01 -Epithelialization Large 67-100% -Exudate Amt Large -Exudate Type Serosanguineous -Granulation Amt Medium (34-66%) -Necrosis Amt Medium (34-66%) -Necrotic Tissue Type Adherent Slough -Texture (Trish-wound Skin Appearance) Assessed -Moisture (Trish-wound Skin Appearance) Assessed -Color (Trish-wound Skin Appearance) Assessed -Temperature (Trish-wound Skin No Abnormality Appearance) (Pt Warm) -Tenderness on Palpation (Trish-wound Yes Skin Appearance) -Ulcer Cleansing Soap and Water -Anesthetic Used 5% Lidocaine Gel #15 LEFT LATERAL LE -Current Size (cm) - Length 2.2 -Current Size (cm) - Width 2.5 -Current Size (cm) - Depth 0.3 -Total Square Cm 5.50 -Exudate Amt Medium -Exudate Type Serosanguineous -Granulation Amt Medium (34-66%) -Slough/Fibrin Yes -Necrosis Amt Medium (34-66%) -Necrotic Tissue Type Adherent Slough -Texture (Trish-wound Skin Appearance) Assessed -Moisture (Trish-wound Skin Appearance) Weeping -Color (Trish-wound Skin Appearance) Assessed -Temperature (Trish-wound Skin No Abnormality Appearance) (Pt Warm) -Tenderness on Palpation (Trish-wound No Skin Appearance) -Ulcer Cleansing Soap and Water -Foul Odor after Cleansing No -Anesthetic Used 4% Lidocaine Solution -Wound Comment(s) UNABLE TO MEASURE WOUNDS D/T SIZE AN PT BEING IN PAIN. #14 Posterior Scrotum -Current Size (cm) - Length 0.1 -Current Size (cm) - Width 0.1 -Current Size (cm) - Depth 0.1 -Total Square Cm 0.01 -Exudate Amt Large -Exudate Type Serosanguineous -Granulation Amt Large (67-100%) -Granulation Quality Red -Slough/Fibrin Yes -Necrosis Amt Large (67-100%) -Necrotic Tissue Type Adherent Slough -Texture (Trish-wound Skin Appearance) Assessed -Moisture (Trish-wound Skin Appearance) Assessed -Color (Trish-wound Skin Appearance) Assessed -Temperature (Trish-wound Skin No Abnormality Appearance) (Pt Warm) -Tenderness on Palpation (Trish-wound Yes Skin Appearance) -Ulcer Cleansing Soap and Water -Foul Odor after Cleansing Yes -Anesthetic Used 5% Lidocaine Gel 3. R ischium -Current Size (cm) - Length 0.1 -Current Size (cm) - Width 0.1 -Current Size (cm) - Depth 0.1 -Total Square Cm 0.01 -Exudate Amt Large -Exudate Type Serosanguineous -Granulation Amt Large (67-100%) -Slough/Fibrin Yes -Necrosis Amt Large (67-100%) -Necrotic Tissue Type Adherent Slough -Texture (Trish-wound Skin Appearance) Assessed -Moisture (Trish-wound Skin Appearance) Assessed -Color (Trish-wound Skin Appearance) Assessed -Anesthetic Used 4% Lidocaine Solution 2. L ischium -Current Size (cm) - Length 0.1 -Current Size (cm) - Width 0.1 -Current Size (cm) - Depth 0.1 -Total Square Cm 0.01 -Exudate Amt Large -Exudate Type Serosanguineous -Slough/Fibrin Yes -Necrosis Amt Large (67-100%) -Necrotic Tissue Type Adherent Slough -Texture (Trish-wound Skin Appearance) Assessed -Moisture (Trish-wound Skin Appearance) Assessed -Color (Trish-wound Skin Appearance) Assessed -Temperature (Trish-wound Skin No Abnormality Appearance) (Pt Warm) -Tenderness on Palpation (Trish-wound Yes Skin Appearance) -Ulcer Cleansing Soap and Water -Foul Odor after Cleansing Yes -Anesthetic Used 4% Lidocaine Solution *1. coccyx -Current Size (cm) - Length 0.1 -Current Size (cm) - Width 0.1 -Current Size (cm) - Depth 0.1 -Total Square Cm 0.01 -Exudate Amt Large -Exudate Type Serosanguineous -Granulation Amt Large (67-100%) -Necrosis Amt Large (67-100%) -Necrotic Tissue Type Adherent Slough -Texture (Trish-wound Skin Appearance) Assessed -Moisture (Trish-wound Skin Appearance) Assessed -Color (Trish-wound Skin Appearance) Assessed -Temperature (Trish-wound Skin No Abnormality Appearance) (Pt Warm) -Tenderness on Palpation (Trish-wound Yes Skin Appearance) -Ulcer Cleansing Soap and Water -Foul Odor after Cleansing Yes -Anesthetic Used 4% Lidocaine Solution Left Calf (cm) 48.8 Left Ankle (cm) 28.5 WC - Nurse 2 - General Ulcer CM Notes Start: 01/18/25 11:11 Freq: Status: Active Protocol: Activity Type Activity Date Activity User E-sign Co-sign Detail Recorded Client Recorded Date Recorded By Document 01/18/25 12:11 [id number] 01/18/25 12:56 01/18/25 12:11 Wound Center Nurse 2 #15 LEFT LATERAL LE -Time 12:14 -Correct Patient Yes -Correct Side, Site, Position Yes -Correct Procedure Yes -Procedure Performed Yes -Type of Procedure Debridement -Clinical Debridement Subcutaneous -Tissue Removed Subcutaneous -Post Debridement (cm) - Length 2.0 -Post Debridement (cm) - Width 2.0 -Post Debridement (cm) - Depth 0.4 -Total Square (Post) (cm) 4.00 -Area of Debridement (cm) - Length 2.0 -Area of Debridement (cm) - Width 2.0 -Total Square (Area) (cm) 4.00 -Tunneling No -Undermining/Tunneling No -Circular Undermining No -Wound/Ulcer Outcome Not Healed -Ulcer Cleansing Rinsed/ Irrigated with Saline -Foul Odor after Cleansing No -Bioengineered Tissue No -Bleeding Controlled with Pressure -Treatment Response Procedure Tolerated Well -Offloading No -Debridement - Subq, 1st 20sq cm No #14 Posterior Scrotum -Time 12:51 -Correct Patient Yes -Correct Side, Site, Position Yes -Correct Procedure Yes -Procedure Performed Yes -Type of Procedure Debridement -Clinical Debridement Subcutaneous -Tissue Removed Subcutaneous -Post Debridement (cm) - Length 5 -Post Debridement (cm) - Width 2 -Post Debridement (cm) - Depth 0.1 -Total Square (Post) (cm) 10 -Area of Debridement (cm) - Length 5 -Area of Debridement (cm) - Width 2 -Total Square (Area) (cm) 10 -Tunneling No -Undermining/Tunneling No -Circular Undermining No -Wound/Ulcer Outcome Not Healed -Ulcer Cleansing Rinsed/ Irrigated with Saline -Foul Odor after Cleansing No -Bioengineered Tissue No -Bleeding Controlled with Pressure -Treatment Response Procedure Tolerated Well -Offloading No -Debridement - Subq, 1st 20sq cm Yes 3. R ischium -Time 12:27 -Correct Patient Yes -Correct Side, Site, Position Yes -Correct Procedure Yes -Procedure Performed Yes -Type of Procedure Debridement -Clinical Debridement Muscle / Fascia -Tissue Removed Muscle -Post Debridement (cm) - Length 10 -Post Debridement (cm) - Width 4.8 -Post Debridement (cm) - Depth 0.1 -Total Square (Post) (cm) 48.0 -Area of Debridement (cm) - Length 10 -Area of Debridement (cm) - Width 4.8 -Total Square (Area) (cm) 48.0 -Tunneling No -Undermining/Tunneling No -Circular Undermining No -Wound/Ulcer Outcome Not Healed -Ulcer Cleansing Rinsed/ Irrigated with Saline -Foul Odor after Cleansing No -Bioengineered Tissue No -Bleeding Controlled with Pressure, Surgifoam 3 1/8 x 5 (lg) -Surgifoam (3 1/8 x 5) Large 1 -Treatment Response Procedure Tolerated Well -Offloading No -Debridement - Muscle / Fascia, 1st No 20sq cm 2. L ischium -Time 12:34 -Correct Patient Yes -Correct Side, Site, Position Yes -Correct Procedure Yes -Procedure Performed Yes -Type of Procedure Debridement -Clinical Debridement Subcutaneous -Tissue Removed Subcutaneous -Tunneling No -Undermining/Tunneling No -Circular Undermining No -Wound/Ulcer Outcome Not Healed -Ulcer Cleansing Rinsed/ Irrigated with Saline -Foul Odor after Cleansing No -Bioengineered Tissue No -Bleeding Controlled with Pressure, Chemical Cauterization ( $) -Other Type of Bleeding Control OTHER PART OF SURGIFOAM -Treatment Response Procedure Tolerated Well -Debridement - Subq, 1st 20sq cm No -Wound Comment(s) SUTURED CLOSE *1. coccyx -Time 12:53 -Correct Patient Yes -Correct Side, Site, Position Yes -Correct Procedure Yes -Procedure Performed Yes -Type of Procedure Debridement -Clinical Debridement Muscle / Fascia -Tissue Removed Muscle -Post Debridement (cm) - Length 16 -Post Debridement (cm) - Width 15 -Post Debridement (cm) - Depth 0.1 -Total Square (Post) (cm) 240 -Area of Debridement (cm) - Length 16 -Area of Debridement (cm) - Width 15 -Total Square (Area) (cm) 240 -Tunneling No -Undermining/Tunneling No -Circular Undermining No -Wound/Ulcer Outcome Not Healed -Ulcer Cleansing Rinsed/ Irrigated with Saline -Foul Odor after Cleansing No -Bioengineered Tissue No -Bleeding Controlled with Pressure -Treatment Response Procedure Tolerated Well -Offloading No -Debridement - Muscle / Fascia, 1st Yes 20sq cm Pain Scale: 0-10 Numeric Is Patient Pain Free? Yes WC - Nurse 3 - General Ulcer D/C NN Start: 01/18/25 11:11 Freq: Status: Active Protocol: Activity Type Activity Date Activity User E-sign Co-sign Detail Recorded Client Recorded Date Recorded By Document 01/18/25 13:11 CLOVER [id number] 01/18/25 13:17 01/18/25 13:11 Wound Care Center Nurse 3 #15 LEFT LATERAL LE -Other Dressing AQUACEL -Primary Dressing Covered/Secured with Dry Gauze #14 Posterior Scrotum -Ulcer Cleansing Rinsed/ Irrigated with Saline -Primary Dressing Applied Aquacel Extra -Primary Dressing Covered/Secured with Dry Gauze -Aquacel Extra 1 -Aquacel AG 4x4 0 3. R ischium -Primary Dressing Applied NonAdherent Contact Layer -Other Dressing DAKINS MOISTENED GAUZE 2. L ischium -Primary Dressing Applied NonAdherent Contact Layer -Other Dressing DAKINS MOISTENED GAUZE -Primary Dressing Covered/Secured with Dry Gauze *1. coccyx -Primary Dressing Applied NonAdherent Contact Layer -Other Dressing DAKINS MOISTENED GAUZE -Primary Dressing Covered/Secured with Dry Gauze Treatment Response Procedure Tolerated Well Pain Scale: 0-10 Numeric Is Patient Pain Free? Yes WC - Visit Discharge Discharge Condition Stable Ambulatory Status Wheelchair Transportation [facility] Medication Reconcilliation completed & No provided to patient/care provider Clinical Summary of Care Provided Yes Additional Wound Wound debrided: right ischium Laterality: Right Wound Grade/Stage: Stage III Type of Debridement: Excisional debridement Anesthesia Used: 4% Lidocaine Solution Depth: Down to and including healthy tissue and in the subcutaneous layer Percentage of wound debrided: 100 Instrument Used: 7mm curette, #15 blade and Forceps Tissue Removed: Yellow slough, devitalized tissue Severity: Fat Layer Exposed Amount of bleeding with debridement: Mild Bleeding Controlled with: Compression and gauze Patient tolerated procedure: Patient tolerated procedure well Additional Wound Wound debrided: coccyx Laterality: Not Applicable Wound Grade/Stage: Stage IV Type of Debridement: Excisional debridement Anesthesia Used: 4% Lidocaine Solution Depth: Down to and including healthy tissue, in the subcutaneous layer and to muscle Percentage of wound debrided: 100 Instrument Used: 7mm curette Tissue Removed: Yellow slough, devitalized tissue Severity: Necrosis of Muscle Amount of bleeding with debridement: Mild Bleeding Controlled with: Compression and gauze Patient tolerated procedure: Patient tolerated procedure well Additional Wound Wound debrided: posterior scrotum Laterality: Not Applicable Wound Grade/Stage: Stage 2 Type of Debridement: Excisional debridement Anesthesia Used: 5% Lidocaine Gel Depth: Down to and including healthy tissue and in the subcutaneous layer Percentage of wound debrided: 100 Instrument Used: 5mm curette Severity: Fat Layer Exposed Amount of bleeding with debridement: Mild Bleeding Controlled with: Compression and gauze Patient tolerated procedure: Patient tolerated procedure well Additional Wound Wound debrided: left lateral calf Laterality: Left Type of Debridement: Excisional debridement Anesthesia Used: 4% Lidocaine Solution and 5% Lidocaine Gel Depth: Down to and including healthy tissue and in the subcutaneous layer Percentage of wound debrided: 100 Instrument Used: 5mm curette Tissue Removed: Yellow slough, devitalized tissue Severity: Fat Layer Exposed Amount of bleeding with debridement: Mild Bleeding Controlled with: Compression and gauze Patient tolerated procedure: Patient tolerated procedure well Assessment/Plan Assessment/Plan (1) Chronic pain: CODE(S): G89.29 - Other chronic pain QUALIFIERS: Chronic pain type: chronic pain syndrome Qualified Code(s): G89.4 - Chronic pain syndrome (2) Hypoxia: CODE(S): R09.02 - Hypoxemia (3) History of paraplegia: CODE(S): Z86.69 - Personal history of other diseases of the nervous system and sense organs (4) Chronic indwelling Campbell catheter: CODE(S): Z97.8 - Presence of other specified devices (5) Type 2 diabetes mellitus: CODE(S): E11.9 - Type 2 diabetes mellitus without complications QUALIFIERS: Diabetes mellitus intermediate teacher insulin use: without retirement use Diabetes mellitus complication status: with neurologic complications Diabetes mellitus complication detail: with polyneuropathy Qualified Code(s): E11.42 - Type 2 diabetes mellitus with diabetic polyneuropathy (6) Chronic anticoagulation: CODE(S): 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 (7) History of deep vein thrombosis: CODE(S): Z86.718 - Personal history of other venous thrombosis and embolism (8) Decubitus ulcer of sacral region, stage 4: CODE(S): L89.154 - Pressure ulcer of sacral region, stage 4 (9) Decubitus ulcer of left perineal ischial region, stage 2: CODE(S): L89.322 - Pressure ulcer of left buttock, stage 2 (10) Hx of spinal surgery: CODE(S): Z98.890 - Other specified postprocedural states (11) Colostomy status: CODE(S): Z93.3 - Colostomy status (12) HTN (hypertension): CODE(S): I10 - Essential (primary) hypertension QUALIFIERS: Hypertension type: primary hypertension Qualified Code(s): I10 - Essential (primary) hypertension (13) BATOOL treated with BiPAP: CODE(S): G47.33 - Obstructive sleep apnea (adult) (pediatric) (14) Lymphedema: CODE(S): I89.0 - Lymphedema, not elsewhere classified (15) Decubitus ulcer of right ischium, stage 3: CODE(S): L89.313 - Pressure ulcer of right buttock, stage 3 PLAN: Plan Debridement performed today in clinic as annotated above. At home wound-care instructions: The patient's ulcers will be washed with antibacterial soap and water and then will use Adaptic and Dakins wet to dry to wound bed and cover with gauze and superabsorber for heavy drainage twice daily. Keep dressing clean and dry. Left heel and right lateral foot will be padded with heel protectors daily. Left lateral calf will be treated with Aquacel Extra and covered with ABD daily. Off-loading: The patient was instructed to avoid pressure and friction on the affected areas. Reposition every 2 hours at minimum. Avoid prolonged standing and/or dangling of legs. When seated, feet should be elevated at chest level. Continue air mattress. Order has been written for alternating pressure air mattress to assist in offloading pressure to his ulcers. He now has alternating pressure air mattress to assist in offloading. Diet: Patient encouraged to increase protein intake while taking caution to avoid high carbohydrate and/or sugar intake. He is getting [place] protein supplement at [facility]. Labs/cultures/imaging: Will obtain previous imaging results. Most recent A1C 7.9% on 07/23/24. Wound culture showed multiple bacteria and he has completed on Flagyl and Cefdinir. IV antibiotic completed on Tuesday. Culture positive for multiple bacteria and VRE and MDR Klebsiella. Will start Flagyl for positive cultures but will hold off on other positive culture results for the time being as these are likely chronic. Will also consider repeat MRI of his sacrum to evaluate for any changes of bone. Wound culture taken of left lateral calf 01/18/25. Follow-up: Return in 1 week for wound care. Return sooner or report to the emergency room should symptoms worsen, or new symptoms arise. Note: [employer] speech recognition storeroom supervisor software was used to create portions of this document. Sound-alike and misspelled words, as well as other storeroom supervisor errors may be contained in the documentation.
== END 2025-02-12 23:59 | disposition home or self-care (01) ==
LOC: WC 10:19
PROVIDERS: PCP Internal Medicine; Referring Provider Internal Medicine; Visit Provider Family Medicine
DX: L89.154 Pressure ulcer of sacral region, stage 4 (principal); L89.313 Pressure ulcer of right buttock, stage 3; G82.20 Paraplegia, unspecified; L89.322 Pressure ulcer of left buttock, stage 2; Z93.3 Colostomy status; E66.01 Morbid (severe) obesity due to excess calories; E11.42 Type 2 diabetes mellitus with diabetic polyneuropathy; M54.9 Dorsalgia, unspecified; R09.02 Hypoxemia; G89.4 Chronic pain syndrome; G47.33 Obstructive sleep apnea (adult) (pediatric); I10 Essential (primary) hypertension; I89.0 Lymphedema, not elsewhere classified; Z79.01 Long term (current) use of anticoagulants; Z86.711 Personal history of pulmonary embolism; Z87.39 Personal history of other diseases of the musculoskeletal system and connective tissue; Z86.718 Personal history of other venous thrombosis and embolism
CPT/HCPCS: 11042; 11043; 11046; 17250; 87070; 87075; 87077; 87186; 87205

== ENCOUNTER 2025-01-18 18:44 | Observation (INO) | payer MEDICAID, SELFPAY ==
[2025-01-18] VITALS (15 sets, daily range): BP systolic 109–124; BP diastolic 52–73; PULSE 103–113; RESP 15–23; TEMP 36.6–37.3; O2SAT 94–97; BMI 52.2; BMI 48.3
--- NOTE | 2025-01-18 19:57 | EX.ED.DYSGE1 ---
HPI History of Present Illness Chief Complaint: Abn Labs Informant: patient Narrative Narrative: Patient is a 59-year-old male with history of paraplegia, stage IV decubitus ulcer, osteomyelitis, diabetes mellitus, hypertension, pulmonary emboli (on Eliquis) presenting for concern of anemia. Patient has significant sacral decubitus ulcer and is in wound care. Apparently has been bleeding recently. He had outpatient labs that were drawn earlier today prior to his wound care appointment. He underwent cautery and wound care today with Dr. Thayer. After his wound care appointment when he return to his nursing facility he was found to have a hemoglobin of 6.8 with sent to the emergency room. Patient does have a chronic indwelling Campbell catheter and denies any change in urine output. He has a colostomy denies any black or blood in his stool. He has no other complaints at this time. 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 Decubitus ulcer of sacral region, stage 4 Lymphedema BATOOL treated with BiPAP Abscess of back Constipation Pressure ulcer of sacral region Chronic indwelling Campbell catheter Blood loss anemia Clot retention of urine Pressure injury, unstageable, with eschar Bilateral pulmonary embolism Rhabdomyolysis Community acquired pneumonia Hypoglycemia Acute osteomyelitis of spine Former tobacco use Paraplegia Cellulitis of leg without foot, right Anemia BMI greater than 40 Type 2 diabetes mellitus HTN (hypertension) H/o back surgery Home Medications ?Medication ?Instructions ?Recorded ?Last Taken ?Type fluticasone propionate 50 1 spray intranasal DAILY shortness 03/03/20 Unknown History mcg/actuation nasal of breath spray,suspension (Flonase Allergy Relief) apixaban 5 mg tablet (Eliquis) 5 mg PO BID 07/29/23 08/31/23 History methocarbamol 500 mg tablet 1,000 mg PO TID PRN cramps 07/29/23 08/31/23 History polyethylene glycol 3350 17 17 g PO TID constipation 07/29/23 07/29/23 History gram/dose oral powder (ClearLax) pantoprazole 40 mg tablet,delayed 40 mg PO DAILY stomach 08/31/23 08/31/23 History release aluminum-mag hydroxide-simethicone 30 ml PO Q6H PRN PRN Gastric 09/13/23 Unknown Rx 400 mg-400 mg-40 mg/5 mL oral susp Burning #0 mL (Mag-Al Plus Extra Strength) amlodipine 10 mg tablet 10 mg PO DAILY #0 tabs 09/13/23 Unknown Rx carvedilol 12.5 mg tablet 12.5 mg PO BIDCM #0 tabs 09/13/23 Unknown Rx diphenhydramine HCl 25 mg capsule 25 mg PO TID PRN PRN Itching #0 09/13/23 Unknown Rx (Banophen) caps polysaccharide iron complex 150 mg 150 mg PO .QOD supplement 10/15/23 Unknown History iron capsule (Ferrex) sennosides 8.6 mg-docusate sodium 2 tab PO BID Constipation 10/15/23 Unknown History 50 mg tablet (Stool Softener-Stimulant Laxative) insulin lispro 100 unit/mL See Protocol subcut TID blood 10/23/23 Unknown History subcutaneous pen (Humalog KwikPen sugars (U-100) Insulin) loratadine 10 mg tablet 10 mg PO DAILY allergies 10/23/23 Unknown History (Allerclear) albuterol sulfate 2.5 mg/3 mL 2.5 mg inhalation BID wheezing 10/25/23 Unknown History (0.083 %) solution for nebulization ascorbic acid (vitamin C) 500 mg 500 mg PO QODAY supplement 03/26/24 Unknown History tablet dextrose 40 % oral gel (Glucose 10 g PO Q15M PRN hypoglycemia 03/26/24 Unknown History Gel) naloxone 0.4 mg/mL injection 0.4 mg IM Q5M PRN opioid reversal 03/26/24 Unknown History syringe ondansetron 4 mg disintegrating 4 mg PO Q4H PRN nausea 03/26/24 Unknown History tablet sodium chloride 0.65 % nasal mist 2 spray intranasal Q2H PRN dry 03/26/24 Unknown History nasal passages duloxetine 30 mg capsule,delayed 90 mg PO QDAY mood 07/18/24 10/28/24 History release insulin glargine 100 unit/mL 20 unit subcut DAILY diabetes 07/18/24 Unknown History subcutaneous solution (Lantus mellitus type 2 U-100 Insulin) insulin lispro 100 unit/mL See Rx Instructions subcut 07/18/24 Unknown History subcutaneous solution .COMPLEX diabetes metformin 500 mg tablet 1,000 mg PO BID diabetes 07/18/24 Unknown History fenofibrate 54 mg tablet 54 mg PO QHS cholesterol 08/17/24 Unknown History nystatin 100,000 unit/gram topical 1 applic topical BID rednes 08/17/24 Unknown History powder acetaminophen 325 mg capsule 650 mg PO Q6H pain 10/12/24 Unknown History acetic acid 0.25 % irrigation 30 ml irrigation BID suprapubic 10/12/24 Unknown History solution cath artificial 1 drp EACH EYE BID PRN dry eyes 10/12/24 Unknown History tears(zqbrawc-njvaokne-jdbpmmy) 0.1 %-0.3 %-0.2 % eye drops (GenTeal Tears Moderate) glipizide 2.5 mg tablet, extended 2.5 mg PO DAILY diabetes 10/12/24 Unknown History release 24 hr simethicone 80 mg chewable tablet 80 mg PO Q4H PRN gas 10/12/24 Unknown History (Gas Relief (simethicone)) sodium hypochlorite 0.25 % 1 applic topical BID wound 10/12/24 Unknown History solution (Dakin's Solution) guaifenesin 600 mg tablet, 600 mg PO BID 7 days #0 tabs 11/01/24 Unknown Rx extended release 12 hr (Mucinex) L.acidophilus-L.bulgar-B.bifid-S.thermoph 1 tab PO BID #60 tabs 11/30/24 Unknown Rx 1 billion cell-250 mg tablet (Probiotic Acidophilus (4 strain)) atorvastatin 40 mg tablet 40 mg PO DAILY 01/18/25 Unknown History azithromycin 250 mg tablet 250 mg PO MOWEFR pneumonia 01/18/25 Unknown History cholecalciferol (vitamin D3) 125 125 mcg PO DAILY 01/18/25 Unknown History mcg (5,000 unit) tablet dulaglutide 4.5 mg/0.5 mL 4.5 mg subcut MO 01/18/25 Unknown History subcutaneous pen injector (Trulicity) furosemide 20 mg tablet 20 mg PO QHS 01/18/25 Unknown History furosemide 40 mg tablet 40 mg PO DAILY 01/18/25 Unknown History morphine 30 mg tablet,extended 30 mg PO Q12H 01/18/25 Unknown History release multivitamin-ferrous 1 tab PO DAILY 01/18/25 Unknown History fumarate-folic acid 18 mg-400 mcg tablet (Tab-A-Milla Multivitamin w-iron) oxycodone 10 mg tablet 10 mg PO 4X/DAY PRN PRN pain 01/18/25 Unknown History potassium chloride 20 mEq 20 meq PO DAILY 01/18/25 Unknown History tablet,extended release(part/cryst) Allergy/AdvReac Type Severity Reaction Status Date / Time adhesive tape AdvReac Severe rash and Verified 01/18/25 23:09 rapid skin breakdown Family History Mother Hypertension Hypotension Diabetes Arthritis Father Hypertension Hypotension Heart disease Status post double vessel coronary artery bypass angina Arthritis Grandfather Prostate cancer Grandmother Uterine cancer Surgical History History of hip replacement Colostomy status Hx of spinal surgery H/O sinus surgery Social History housing: prison current occupational status: employed and retired Smoking Status: Former smoker alcohol intake: never substance use type: does not use do you feel safe at home: Yes ROS ROS ED Constitutional Constitutional ED: Denies chills or fever(s) Cardiovascular Cardiovascular: Denies chest pain Respiratory/Chest Respiratory/Chest: Denies cough or dyspnea Musculoskeletal Musculoskeletal: Reports other Details: Buttocks pain associated with chronic wound Integumentary Reports other Details: [place] sacral wound, was bleeding but cauterized today Neurologic Neurologic: Reports other Details: Paraplegia Hematologic/Lymphatic Hematologic/Lymphatic: Reports easy bleeding and other Details: On Eliquis EXAM Physical Exam Const Vital Signs: 01/18/25 18:45 01/18/25 18:50 01/18/25 18:53 Temperature 98.8 F 98.8 F Temperature Source Oral Oral Pulse Rate 107 H 107 H Respiratory Rate 18 18 Respiratory Effort Normal Respiratory Pattern Normal Blood Pressure 123/61 H 123/61 H Blood Pressure Mean 81 81 Pulse Ox 95 95 Oxygen Delivery Method Nasal Cannula Airvo Oxygen Flow Rate (L/min) 5 01/18/25 19:50 01/18/25 20:00 01/18/25 20:09 Temperature 99.1 F 99.1 F Temperature Source Oral Oral Pulse Rate 106 H 107 H 111 H Respiratory Rate 16 15 20 H Respiratory Effort Respiratory Pattern Blood Pressure 115/56 L 115/56 L Blood Pressure Mean 75 75 Pulse Ox 95 95 94 Oxygen Delivery Method Room Air Nasal Cannula Oxygen Flow Rate (L/min) 5 01/18/25 20:12 01/18/25 20:15 01/18/25 20:30 Temperature Temperature Source Pulse Rate 113 H 108 H 107 H Respiratory Rate 17 16 17 Respiratory Effort Respiratory Pattern Blood Pressure 109/52 L 122/60 H 115/56 L Blood Pressure Mean 71 79 70 Pulse Ox 95 95 95 Oxygen Delivery Method Nasal Cannula Oxygen Flow Rate (L/min) 4 01/18/25 20:45 01/18/25 21:00 01/18/25 21:00 Temperature 99.1 F Temperature Source Oral Pulse Rate 107 H 111 H 106 H Respiratory Rate 15 23 H 20 H Respiratory Effort Respiratory Pattern Blood Pressure 124/57 H 112/70 124/59 H Blood Pressure Mean 74 81 80 Pulse Ox 95 94 97 Oxygen Delivery Method Nasal Cannula Oxygen Flow Rate (L/min) 5 Positive well nourished and well developed General Appearance ED: well developed and NAD HEENT Reports moist mucous membranes Chest Wall inspection of chest normal Resp normal respiratory effort and clear to auscultation bilaterally Cardio regular rhythm Rate: tachycardic GI normal to inspection, nondistended, normoactive bowel sounds and non-tender GI Narrative: Colostomy in place. Green stool in the bag. Stomal hernia present. Is soft and reducible. Patient states that is chronic and comes and goes. Narrative: Suprapubic Campbell catheter placed. Neuro oriented x3 Neuro Narrative: Mildly tremulous Sensorium / Orientation: alert Motor Exam: general weakness Psych mental status grossly normal Skin Skin Narrative: large fullthickness sacral wound down to bone. No active bleeding. Skin is pink and well-vascularized. MDM MDM MDM Narrative Medical decision making narrative: Patient is evaluated for anemia and outpatient labs. Had hemoglobin of 6.8. Is on Eliquis. Had bleeding from his sacral wound. Bleeding was controlled earlier today with cautery by wound care. Hemoglobin rechecked and 6.4. Patient is mildly tachycardic. He says he was bleeding quite a bit. His baseline is closer to 8. His type and crossed for 2 units of packed red blood cells. He is agreeable with this. Is otherwise well-appearing and at his baseline. Will be admitted for transfusion. Patient is given his regular evening pain medication (carbamazepine and morphine sulfate) for pain control. Lab Data Attestation: I reviewed the patient's lab results. Labs: Laboratory Results - last 24 hr 01/18/25 19:02 WBC 12.1 H RBC 3.18 L Hgb 6.4 L Hct 23.3 L MCV 73.3 L MCH 20.1 L MCHC 27.5 L RDW Std Deviation 49.1 H RDW Coeff of Mary 18.6 H Plt Count 437 MPV 9.6 Sodium 136 Potassium 4.3 Chloride 94 L Carbon Dioxide 29.8 Anion Gap 12 BUN 10 Creatinine 0.61 L Estim Creat Clear Calc 189.32 Est GFR (MDRD) Non-Af 112 BUN/Creatinine Ratio 16.0 Glucose 187 H Calcium 8.8 Phosphorus 4.2 Magnesium 1.7 Blood Type A POSITIVE Antibody Screen NEGATIVE Crossmatch See Detail Management Discussion w/another healthcare provider: Hospitalist Discharge Plan Dx/Rx/DC Orders Clinical Impression: Acute on chronic anemia, Current use of [employer] anticoagulation, Chronic indwelling Campbell catheter, Colostomy status, Chronic back pain Disposition Disposition: Acute Care Hospital [facility] Discharge Date/Time: 01/18/25 21:35
[2025-01-18 20:16] LABS: Hematocrit 23.3 % (40-54); Hemoglobin 6.4 g/dL (13.0-16.5); Mean Corp Hgb Conc 27.5 g/dL (32-36); Mean Corpuscular Volume 73.3 fL (80-94); Mean Platelet Vol. 9.6 fl (6.2-12.0); Platelet Count 437 K/mm3 (150-450); RBC Distribution Width CV 18.6 % (11.6-14.6); RBC Distribution Width SD 49.1 fl (35.1-43.9); Red Blood Count 3.18 M/mm3 (4.6-6.2); White Blood Count 12.1 K/mm3 (4.4-11.0)
[2025-01-18 20:54] LABS: Anion Gap 12 (5-15); BUN 10 mg/dL (4-19); BUN/Creat Ratio 16.0 RATIO (10-20); Calcium,Total 8.8 mg/dL (7.6-11.0); Carbon Dioxide 29.8 mmol/L (21.0-32.0); Chloride 94 mmol/L (98-108); Estimated Creatinine Clearance 189.32 ml/min (50-250); Glucose 187 mg/dL (70-99); Potassium 4.3 mmol/L (3.3-5.1)
--- NOTE | 2025-01-18 20:56 | CASEMGMT ---
Social Work SW verified that patient would like to return to [facility] when medically ready. No further needs identified at this time. Jessy Thompson, BANKING SERVICES CLERK, FUNERAL DIRECTOR'S ASSISTANT
--- NOTE | 2025-01-18 21:11 | PCM.HP.STD ---
HPI - General General Date of Admission: 01/18/25 Date of Service: 01/18/25 Chief Complaint: Abnormal Hgb, recent bleeding from chronic wound, s/p now cauterization at [facility]. HPI Narrative The patient is a 59 y/o M w/ PMHx: Chronic Hypoxic and Hypercapnic Respiratory Failure (4L NC), Hx VTE, Diabetes mellitus type II, Chronic obstructive uropathy with chronic indwelling bartlett catheter, Chronic pain syndrome, GERD, Allergic rhinitis, Chronic BL LE lymphedema, Hx L1 injury and paraplegic status with chronic decubitus ulcers stage IV, BATOOL on BIPAP, Former tobacco use, Morbid obesity, HTN, HLD, recent wound center evaluation by Dr. Thayer on day of presentation with ulcers washed with antibacterial soap/water with placement of Adaptic and Dakin's wet-to-dry to wound bed covered with gauze and superabsorber with continued plan for these types of dressings twice daily in addition to left heel and right lateral foot padded with heel protectors daily and left lateral calf treated with Aquacel extra and covered with ABD daily with offloading and wound culture taken of the left lateral calf with plan follow-up in 1 week now presenting to the [facility] ED on 01/18/2025 secondary to concern for anemia with bleeding from his decubitus ulcers since evaluation and wound care on day of presentation with labs drawn earlier in the day prior to the wound care appointment with cautery performed at his visit with hemoglobin at that time noted to be 6.8 with no dark black stool or concerning bright red blood in the colostomy and no change in color of his urine output prompting referral per nursing facility to the ED for evaluation. In the ED wound/dressing taken down with no active bleeding concerns and stable appearing wound. Workup in the ED included T97.8, heart rate 98, BP 125/79, respiratory rate 18, 95% initially on 5 L nasal cannula with most recent repeat vitals T99.1, heart rate 113, BP 109/52, respiratory rate 17, 95% on 4 L nasal cannula, CBC with WC 12.1, Heenan 6.4, MCV 73.3, platelet 437 without differential, BMP with chloride 94, BUN/Cryan 10/0.61, GFR 112, glucose 187, type and cross initiated for 2 unit PRBC per ED physician in the ED patient ministered morphine SR tablet 30 mg p.o. x 1 as well as methocarbamol 1000 mg p.o. x 1. [facility] Medical History MDR Acinetobacter baumannii infection VRE (vancomycin resistant enterococcus) culture positive Decubitus ulcer of sacral region, stage 4 Lymphedema BATOOL treated with BiPAP Abscess of back Constipation Pressure ulcer of sacral region Chronic indwelling Bartlett catheter Blood loss anemia Clot retention of urine Pressure injury, unstageable, with eschar Bilateral pulmonary embolism Rhabdomyolysis Community acquired pneumonia Hypoglycemia Acute osteomyelitis of spine Former tobacco use Paraplegia Cellulitis of leg without foot, right Anemia BMI greater than 40 Type 2 diabetes mellitus HTN (hypertension) H/o back surgery Home Medications ?Medication ?Instructions ?Recorded ?Last Taken ?Type fluticasone propionate 50 1 spray intranasal DAILY shortness 03/03/20 Unknown History mcg/actuation nasal of breath spray,suspension (Flonase Allergy Relief) apixaban 5 mg tablet (Eliquis) 5 mg PO BID 07/29/23 08/31/23 History methocarbamol 500 mg tablet 1,000 mg PO TID PRN cramps 07/29/23 08/31/23 History polyethylene glycol 3350 17 17 g PO TID PRN constipation 07/29/23 07/29/23 History gram/dose oral powder (ClearLax) pantoprazole 40 mg tablet,delayed 40 mg PO DAILY stomach 08/31/23 08/31/23 History release aluminum-mag hydroxide-simethicone 30 ml PO Q6H PRN PRN Gastric 09/13/23 Unknown Rx 400 mg-400 mg-40 mg/5 mL oral susp Burning #0 mL (Mag-Al Plus Extra Strength) amlodipine 10 mg tablet 10 mg PO DAILY #0 tabs 09/13/23 Unknown Rx carvedilol 12.5 mg tablet 12.5 mg PO BIDCM #0 tabs 09/13/23 Unknown Rx diphenhydramine HCl 25 mg capsule 25 mg PO TID PRN PRN Itching #0 09/13/23 Unknown Rx (Banophen) caps polysaccharide iron complex 150 mg 150 mg PO .QOD supplement 10/15/23 Unknown History iron capsule (Ferrex) sennosides 8.6 mg-docusate sodium 2 tab PO BID Constipation 10/15/23 Unknown History 50 mg tablet (Stool Softener-Stimulant Laxative) insulin lispro 100 unit/mL See Protocol subcut TID blood 10/23/23 Unknown History subcutaneous pen (Humalog KwikPen sugars (U-100) Insulin) loratadine 10 mg tablet 10 mg PO DAILY allergies 10/23/23 Unknown History (Allerclear) albuterol sulfate 2.5 mg/3 mL 2.5 mg inhalation BID wheezing 10/25/23 Unknown History (0.083 %) solution for nebulization ascorbic acid (vitamin C) 500 mg 500 mg PO QODAY supplement 03/26/24 Unknown History tablet dextrose 40 % oral gel (Glucose 10 g PO Q15M PRN hypoglycemia 03/26/24 Unknown History Gel) naloxone 0.4 mg/mL injection 0.4 mg IM Q5M PRN opioid reversal 03/26/24 Unknown History syringe ondansetron 4 mg disintegrating 4 mg PO Q4H PRN nausea 03/26/24 Unknown History tablet sodium chloride 0.65 % nasal mist 2 spray intranasal Q2H PRN dry 03/26/24 Unknown History nasal passages duloxetine 30 mg capsule,delayed 90 mg PO QDAY mood 07/18/24 10/28/24 History release insulin glargine 100 unit/mL 20 unit subcut DAILY diabetes 07/18/24 Unknown History subcutaneous solution (Lantus mellitus type 2 U-100 Insulin) insulin lispro 100 unit/mL See Rx Instructions subcut 07/18/24 Unknown History subcutaneous solution .COMPLEX diabetes metformin 500 mg tablet 1,000 mg PO BID diabetes 07/18/24 Unknown History fenofibrate 54 mg tablet 54 mg PO QHS cholesterol 08/17/24 Unknown History nystatin 100,000 unit/gram topical 1 applic topical BID rednes 08/17/24 Unknown History powder acetaminophen 325 mg capsule 650 mg PO Q6H pain 10/12/24 Unknown History acetic acid 0.25 % irrigation 30 ml irrigation BID suprapubic 10/12/24 Unknown History solution cath artificial 1 drp EACH EYE BID PRN dry eyes 10/12/24 Unknown History tears(yvssfyw-ytribtfu-bjajgvg) 0.1 %-0.3 %-0.2 % eye drops (GenTeal Tears Moderate) glipizide 2.5 mg tablet, extended 2.5 mg PO DAILY diabetes 10/12/24 Unknown History release 24 hr simethicone 80 mg chewable tablet 80 mg PO Q4H PRN gas 10/12/24 Unknown History (Gas Relief (simethicone)) sodium hypochlorite 0.25 % 1 applic topical BID wound 10/12/24 Unknown History solution (Dakin's Solution) guaifenesin 600 mg tablet, 600 mg PO BID 7 days #0 tabs 11/01/24 Unknown Rx extended release 12 hr (Mucinex) L.acidophilus-L.bulgar-B.bifid-S.thermoph 1 tab PO BID #60 tabs 11/30/24 Unknown Rx 1 billion cell-250 mg tablet (Probiotic Acidophilus (4 strain)) atorvastatin 40 mg tablet 40 mg PO DAILY 01/18/25 Unknown History azithromycin 250 mg tablet 250 mg PO MOWEFR pneumonia 01/18/25 Unknown History cholecalciferol (vitamin D3) 125 125 mcg PO DAILY 01/18/25 Unknown History mcg (5,000 unit) tablet dulaglutide 4.5 mg/0.5 mL 4.5 mg subcut MO 01/18/25 Unknown History subcutaneous pen injector (Trulicity) furosemide 20 mg tablet 20 mg PO QHS 01/18/25 Unknown History furosemide 40 mg tablet 40 mg PO BID 01/18/25 Unknown History morphine 30 mg tablet,extended 30 mg PO Q12H 01/18/25 Unknown History release multivitamin-ferrous 1 tab PO DAILY 01/18/25 Unknown History fumarate-folic acid 18 mg-400 mcg tablet (Tab-A-Milla Multivitamin w-iron) oxycodone 10 mg tablet 10 mg PO 4X/DAY PRN PRN pain 01/18/25 Unknown History potassium chloride 20 mEq 20 meq PO DAILY 01/18/25 Unknown History tablet,extended release(part/cryst) Allergy/AdvReac Type Severity Reaction Status Date / Time No Known Allergies Allergy Verified 01/18/25 18:51 Family History Mother Hypertension Hypotension Diabetes Arthritis Father Hypertension Hypotension Heart disease Status post double vessel coronary artery bypass angina Arthritis Grandfather Prostate cancer Grandmother Uterine cancer Surgical History History of hip replacement Colostomy status Hx of spinal surgery H/O sinus surgery Social History 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 Smoking Status: Former smoker alcohol intake: never substance use type: does not use do you feel safe at home: Yes ROS ROS Narrative Admission Review of Systems: CONSTITUTIONAL: No weight loss, fever, chills, + weakness or fatigue. HEENT: Eyes: No visual loss, blurred vision, double vision or yellow sclerae. Ears, Nose, Throat: No hearing loss, sneezing, congestion, runny nose or sore throat. SKIN: + Decubitous ulcers stage IV, left heel and right lateral foot pressure ulcer, left lateral calf pressure ulcer, various abrasions, bilateral lower extremity venous stasis skin changes with recent reported active bleeding from decubtious ulcer stage IV (alread cauterized at [facility] prior to ED transition) CARDIOVASCULAR: No chest pain, chest pressure or chest discomfort, palpitations, edema, orthopnea, syncopal events. RESPIRATORY: No shortness of breath, cough or sputum, wheezing, hemoptysis. GASTROINTESTINAL: No nausea, vomiting, diarrhea, abdominal pain, melena, BRBPR. GENITOURINARY: Chronic indwelling Bartlett catheter, hematuria, clots, suprapubic pain. NEUROLOGICAL: + Chronic significant debility with paraplegia and sensation decrease from the lumbar region and downward, chronic indwelling bartlett catheter with neurogenic bladder. Noo headache, dizziness, syncope, change in bowel control, seizure. MUSCULOSKELETAL: + muscle, back pain, joint pain or stiffness. HEMATOLOGIC: + Acute on Chronic anemia, easy bleeding or bruising. LYMPHATICS: No enlarged nodes. No history of splenectomy. PSYCHIATRIC: + history of anxiety and depression. ENDOCRINOLOGIC: No reports of sweating, cold or heat intolerance. No polyuria or polydipsia. ALLERGIES: + Hx allergic rhinitis. Vital Signs Vital Signs Vital Signs: 01/18/25 18:45 01/18/25 18:50 01/18/25 18:53 Temperature 98.8 F 98.8 F Temperature Source Oral Oral Pulse Rate 107 H 107 H Respiratory Rate 18 18 Respiratory Effort Normal Respiratory Pattern Normal Blood Pressure 123/61 H 123/61 H Blood Pressure Mean 81 81 Pulse Ox 95 95 Oxygen Delivery Method Nasal Cannula Airvo Oxygen Flow Rate (L/min) 5 01/18/25 19:50 01/18/25 20:00 01/18/25 20:12 Temperature 99.1 F 99.1 F Temperature Source Oral Oral Pulse Rate 106 H 107 H 113 H Respiratory Rate 16 15 17 Respiratory Effort Respiratory Pattern Blood Pressure 115/56 L 115/56 L 109/52 L Blood Pressure Mean 75 75 71 Pulse Ox 95 95 95 Oxygen Delivery Method Room Air Nasal Cannula Nasal Cannula Oxygen Flow Rate (L/min) 5 4 Weight Weight: 333 lb 8.95 oz Body Mass Index (BMI) 52.2 Physical Exam Narrative Physical Examination: General: Awake, alert, oriented x > 3, cooperative, seated upright in the ED bed, no acute distress. Skin: Normal color, normal turgor, no icterus, no cyanosis except for various staged abrasions, ecchymoses, bilateral lower extremity venous stasis skin changes, intertrigo, lumbar and bilateral buttock chronic decubitus ulcers with dressing change per ED, no drainage, no active bleeding, BL chronic heel breakdown, left medial calf chronic stasis ulcer. HEENT: AT/NC, EOMI, PERRLA, MMM, no carotid bruits or JVD noted; however, thickened neck makes evaluation difficult. Lungs: CTA bilaterally, moderate effort, mild decrease BL bases, no rales, ronchi or wheezing. Heart: Mildly tachycardic with regular rhythm; no gallop, rub audible. Abdomen: Soft, morbidly obese, NTTP, ostomy in place with appropriate output, distant BS, difficult to assess distention and HSM given habitus. Urological: Bartlett catheter in place, appropriate appearing urine. Extremities: No cyanosis, no clubbing, significant bilateral lower extremity lymphedema with bilateral lower extremity stasis, see skin. Neurological: Patient awake, alert, oriented as noted, cognitive function baseline intact; pupils equally reactive to light and accommodation, cranial nerves grossly normal, paraplegic with decreased sensation to lower extremities chronically, strength severely globally decreased secondary to acute presentation complicated by underlying history. Psychiatric: Affect appears normal, talkative, no acute evidence of depressive or anxiety feelings but does have underlying history. Results Lab / Micro Data 01/18/25 19:02 01/18/25 19:02 Labs: Laboratory Results - last 24 hr 01/18/25 19:02: WBC 12.1 H, RBC 3.18 L, Hgb 6.4 L, Hct 23.3 L, MCV 73.3 L, MCH 20.1 L, MCHC 27.5 L, RDW Std Deviation 49.1 H, RDW Coeff of Mary 18.6 H, Plt Count 437, MPV 9.6, Sodium 136, Potassium 4.3, Chloride 94 L, Carbon Dioxide 29.8, Anion Gap 12, BUN 10, Creatinine 0.61 L, Estim Creat Clear Calc 189.32, Est GFR (MDRD) Non-Af 112, BUN/Creatinine Ratio 16.0, Glucose 187 H, Calcium 8.8, Blood Type A POSITIVE, Antibody Screen NEGATIVE Assessment & Plan Assessment/Plan (1) Acute on chronic anemia: PLAN: Plan The patient is a 59 y/o M w/ PMHx: Chronic Hypoxic and Hypercapnic Respiratory Failure (4L NC), Hx VTE, Diabetes mellitus type II, Chronic obstructive uropathy with chronic indwelling bartlett catheter, Chronic pain syndrome, GERD, Allergic rhinitis, Chronic BL LE lymphedema, Hx L1 injury and paraplegic status with chronic decubitus ulcers stage IV, BATOOL on BIPAP, Former tobacco use, Morbid obesity, HTN, HLD, recent wound center evaluation by Dr. Thayer on day of presentation with ulcers washed with antibacterial soap/water with placement of Adaptic and Dakin's wet-to-dry to wound bed covered with gauze and superabsorber with continued plan for these types of dressings twice daily in addition to left heel and right lateral foot padded with heel protectors daily and left lateral calf treated with Aquacel extra and covered with ABD daily with offloading and wound culture taken of the left lateral calf with plan follow-up in 1 week now presenting to the [facility] ED on 01/18/2025 secondary to concern for anemia with bleeding from his decubitus ulcers since evaluation and wound care on day of presentation with labs drawn earlier in the day prior to the wound care appointment with cautery performed at his visit with hemoglobin at that time noted to be 6.8 with no dark black stool or concerning bright red blood in the colostomy and no change in color of his urine output prompting referral per nursing facility to the ED for evaluation. #1. Acute on Chronic Anemia, Microcytic secondary to Acute Bleeding from Chronic decubitus stage IV Ulcer: Admission Hgb 6.4, prior to this earlier in the day 6.8 at the SNF and this was prior to [facility] cauterization, current ED presentation Hgb 6.4 with prior to this noted most recently 12/17/24 Hgb 8.8, given no active bleeding from the wound as currently there is no availability with plastic surgery will admit to medical surgical floor, continue wound RN consultation in the interim, encourage strongly offloading, continue patient chronic pain regimen as BP allows given anemia, continue plans to unit PRBC administration and assure no recurrent bleeding and hemoglobin remained stable in a.m. with then plan to return to [facility] facility 01/19/2025 if no acute concerns arise. #2. History of L1 injury with paraplegic status complicated by chronic decubitus ulcers, Chronic Indwelling Bartlett with Chronic pain syndrome: Encourage aggressive offloading, frequent positional changes, wound RN consulted, continue dressing changes, recent cautery at wound care center with no current active bleeding noted, PT/OT/case management consulted. #3. Chronic pain syndrome: Patient with significant chronic back pain and debility complicated by his paraplegic status, will continue patient home chronic gabapentin, oxycodone, morphine oral regimen with as needed breakthrough regimen in addition. #4. Hypertension: Continue home regimen including Coreg, Lasix, amlodipine with hold parameters, PRN hydralazine. #5. Hyperlipidemia: Will continue patient home fenofibrate regimen #6. Chronic constipation: We will continue patient home bowel regimen. #7. Anxiety and depression: Will continue patient home duloxetine regimen. #8. History of VTE: Temporarily holding patient anticoagulation given #1, consider resumption 01/19/25 as long as Hgb stable and no bleeding. #9. Former tobacco use: Encourage continued tobacco cessation. #10. Morbid Obesity with Chronic Hypoxic and Hypercarbic Respiratory Failure: Weight loss and lifestyle changes encouraged, continue chronic oxygen supplementation, also BIPAP q HS as noted given concurrent BATOOL. #11. GERD: We will continue patient on PPI. #12. BATOOL: BiPAP nightly. #13. Chronic bilateral lower extremity lymphedema/edema: Will place neck Surya wraps. #14. Diabetes mellitus type II with chronic neuropathy: Hold oral home regimen, ADA diet, accu checks w/ ISS. #15. Allergic rhinitis: Will continue patient home fluticasone and loratadine regimen. #16. DVT prophylaxis: SCDs, holding patient's anticoagulant therapy secondary to acute presentation #1. #17. CODE STATUS: Per facility paperwork Full Code status. Charges/Coding Visit Charges Inpatient E&M: 78449 Init Hosp L3
[2025-01-18] MEDS: morphine SR 15 MG Tablet 30 MG PO (21:15)
--- NOTE | 2025-01-18 21:44 | NURSING ---
Speciality mattress ordered per Dr. Nino's order for wound precautions. Dr. Nino concerned about blood loss because we don't have plastics on right now. Company will call with ETA. Confirmation number [id number]
[2025-01-18 22:07] LABS: Magnesium 1.7 mg/dL (1.5-2.2)
[2025-01-18] MEDS: HYDROmorphone 0.5 MG/0.5 ML SYRINGE IV (22:30)
[2025-01-18] MEDS: 0.9% Saline Lock 10 ML Syringe IV (22:30)
[2025-01-18] MEDS: Senna/Docusate Sodium 1 Tablet 2 TABLET PO (23:29)
[2025-01-18] MEDS: ACETIC ACID 1,000 ML IRRIG.SOLN 30 ML IRRIGATION (23:31)
[2025-01-19] VITALS (15 sets, daily range): BP systolic 122–141; BP diastolic 62–77; PULSE 81–105; RESP 16–18; TEMP 36.6–37.1; O2SAT 94–98
[2025-01-19] MEDS: 0.9% Saline Lock 10 ML Syringe IV (03:52)
[2025-01-19] MEDS: HYDROmorphone 0.5 MG/0.5 ML SYRINGE IV ×2 (03:52→07:01)
[2025-01-19] MEDS: Polyethylene Glycol 3350 17 GM PACKET PO ×2 (05:44→13:35)
[2025-01-19] MEDS: CLARIFY ORDER 1 EACH NOTE (07:15)
[2025-01-19] MEDS: Albuterol 2.5 MG/3 ML VIAL.NEB. INHALATION (07:22)
--- NOTE | 2025-01-19 07:31 | PN.HOSP_ITS ---
Reason for Visit
--- NOTE | 2025-01-19 07:31 | PCM.PN.HOSP ---
Reason for Visit Chief Complaint: Abnormal Hgb, recent bleeding from chronic wound, s/p now cauterization at [facility]. Subjective Subjective Patient is a 59-year-old gentleman resident at an [facility] care facility brought from the wound care center with low hemoglobin of 6.8 Objective Data Objective Data Vital Signs: Vital Signs Temp Pulse Resp BP Pulse Ox O2 Del Method O2 Flow Rate 98.2 F 92 16 135/67 H 98 Nasal Cannula 4 01/19/25 04:59 01/19/25 04:59 01/19/25 04:59 01/19/25 04:59 01/19/25 04:59 01/19/25 04:59 01/19/25 04:59 Oxygen Flow Rate (L/min) 4 Oxygen Delivery Method Nasal Cannula Weight: 140 kg Body Mass Index (BMI) 48.3 Intake & Output: Intake and Output for Last 24 Hours 01/17/25 01/18/25 01/19/25 23:59 23:59 23:59 Intake Total 200 / 200 Output Total 2100 / 2100 Balance -1900 / -1900 Lab / Micro Data 01/19/25 07:20 01/19/25 07:20 Labs: Laboratory Results - last 24 hr 01/18/25 19:02: WBC 12.1 H, RBC 3.18 L, Hgb 6.4 L, Hct 23.3 L, MCV 73.3 L, MCH 20.1 L, MCHC 27.5 L, RDW Std Deviation 49.1 H, RDW Coeff of Mary 18.6 H, Plt Count 437, MPV 9.6, Sodium 136, Potassium 4.3, Chloride 94 L, Carbon Dioxide 29.8, Anion Gap 12, BUN 10, Creatinine 0.61 L, Estim Creat Clear Calc 189.32, Est GFR (MDRD) Non-Af 112, BUN/Creatinine Ratio 16.0, Glucose 187 H, Calcium 8.8, Phosphorus 4.2, Magnesium 1.7, Blood Type A POSITIVE, Antibody Screen NEGATIVE, Crossmatch See Detail 01/18/25 23:55: POC Glucose 165 H 01/19/25 06:56: POC Glucose 194 H Physical Exam Narrative GENERAL: cooperative HEENT: Atraumatic; normocephalic EYES; Anicteric, Normal Conjunctiva NECK; supple, normal thyroid, RESPIRATORY: Diminished to auscultation CARDIOVASCULAR: Regular S1 S2, GI: soft, normoactive bowel sounds, : No Renal angle tenderness; EXTREMITIES: No edema, no clubbing, MUSCULOSKELETAL: no muscle wasting NEURO: Awake; paraplegic SKIN: Sacral decubitus present on admission PSYCH; Flat affect Assessment & Plan Assessment/Plan (1) Acute on chronic anemia: PLAN: Plan Patient is a 59-year-old gentleman resident at an [facility] care facility brought from the [facility] with low hemoglobin of 6.8 1. Acute on chronic blood loss anemia from decubitus ulcer ? Patient was admitted to regular nursing floor, patient was transfused with 2 unit PRBC hemoglobin came up to7.6. Will repeat H&H in 4 hours and if hemoglobin remains stable patient will be discharged back to his ECF 2. Stage IV chronic decubitus ulcer ? Patient is managed at the wound care [place] plan is for patient to resume care following discharge 3. History of L1 injury with paraplegic status complicated by chronic decubitus ulcers, Chronic Indwelling Campbell with Chronic pain syndrome: Encourage aggressive offloading, frequent positional changes, wound RN consulted, continue dressing changes, recent cautery at [facility] with no current active bleeding noted, PT/OT/case management consulted. 4. Chronic congestive heart failure with preserved ejection fraction ? Echo from 10/13/2024 demonstrated EF of 55 to 60%. Patient is on furosemide and currently remains compensated 5. History of bilateral pulmonary embolism ? Patient treated with apixaban held on admission given bleeding from his chronic decubitus ulcer 6. Diabetes mellitus type 2 ? Patient is on long-acting insulin in addition to scheduled short acting insulin did continue with home regiment. Also placed on 1800 ADA diet in addition to Accu-Cheks ACHS with sliding scale coverage 7. Class III obesity with BMI of 51.2 ? Complicating care 8. Obstructive sleep apnea ? BiPAP therapy at night 9. Essential hypertension ? Patient blood pressure remained stable 10. DVT prophylaxis ? Patient on apixaban held given the bleeding Time spent in the patient's overall evaluation,decision-making process, review of diagnostic data, adjustment of management, discussion with other providers, nursing nursing and ancillary staff involved in patient's care documentation, 50 Minutes Charges/Coding Visit Charges Inpatient E&M: 96676 Disch Hosp >30min
[2025-01-19 08:07] LABS: Hematocrit 26.7 % (40-54); Hemoglobin 7.6 g/dL (13.0-16.5); Immature Granulocytes Count 0.130 X10^3/uL (0.0-0.0); Mean Corp Hgb Conc 28.5 g/dL (32-36); Mean Corpuscular Volume 74.6 fL (80-94); Mean Platelet Vol. 9.6 fl (6.2-12.0); NRBC Flagged by Analyzer 0.5 % (0-5); Platelet Count 401 K/mm3 (150-450); RBC Distribution Width CV 18.9 % (11.6-14.6); RBC Distribution Width SD 50.6 fl (35.1-43.9); Red Blood Count 3.58 M/mm3 (4.6-6.2); White Blood Count 10.1 K/mm3 (4.4-11.0)
[2025-01-19 08:38] LABS: AST(SGOT) 25 U/L (<=37); Alanine Aminotransfer ALT/SGPT 8 U/L (<=46); Albumin, Serum 3.4 g/dL (3.5-5.0); Alkaline Phosphatase 69 U/L (40-129); Anion Gap 12 (5-15); BUN 11 mg/dL (4-19); BUN/Creat Ratio 19.5 RATIO (10-20); Calcium,Total 8.4 mg/dL (7.6-11.0); Carbon Dioxide 29.2 mmol/L (21.0-32.0); Chloride 95 mmol/L (98-108); Estimated Creatinine Clearance 186.91 ml/min (50-250); Globulin 3.5 g/dL (2.2-4.2); Glucose 194 mg/dL (70-99); Potassium 4.0 mmol/L (3.3-5.1)
[2025-01-19] MEDS: Lactobacillis Acidophilus 1 CAP PO (10:42)
[2025-01-19] MEDS: Senna/Docusate Sodium 1 Tablet 2 TABLET PO (10:43)
[2025-01-19] MEDS: Potassium Chloride Oral Tablet 20 MEQ PO (10:44)
[2025-01-19] MEDS: ACETIC ACID 1,000 ML IRRIG.SOLN 30 ML IRRIGATION (10:46)
[2025-01-19] MEDS: Fluticasone 0.05% 1 SPRAY NASAL.SRY NASAL (10:46)
[2025-01-19] MEDS: DAKIN'S SOL HALF STRENGTH (=0.25%) 30 ML TOPICAL (10:47)
[2025-01-19] MEDS: morphine SR 15 MG Tablet 30 MG PO (10:54)
[2025-01-19] MEDS: Insulin Glargine-YFGN 100 UNIT/ML Pen 20 UNIT SC (11:08)
--- NOTE | 2025-01-19 11:33 | CASEMGMT ---
Social Work Updates sent to [facility] via [employer], inquired if pt can return today and if so what is the best phone and fax number. SW will continue to follow. Pt had informed SW in the ED he was agreeable to return to [facility] at d/c, so SNF list not needed at this time. ALISA Sheth
--- NOTE | 2025-01-19 12:19 | CASEMGMT ---
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 SW placed green sheet and transport form on the chart in anticipation of weekend discharge. ALISA Sheth
[2025-01-19 13:29] LABS: Hematocrit 28.5 % (40-54); Hemoglobin 8.1 g/dL (13.0-16.5)
--- NOTE | 2025-01-19 13:39 | PCM.DC.SUM ---
Providers Date of Admission: 01/18/25 Date of Discharge: 01/19/25 Primary Care Physician: Dr. Wilma Thayer, Reason For Visit: ACUTE ON CHRONIC ANEMIA Diagnosis Discharge Diagnosis (1) Acute on chronic anemia: Status: Chronic Code(s): D64.9 - Anemia, unspecified Plan Patient is a 59-year-old gentleman resident at an [facility] care facility brought from the wound care center with low hemoglobin of 6.8 1. Acute on chronic blood loss anemia from decubitus ulcer ? Patient was admitted to regular nursing floor, patient was transfused with 2 unit PRBC hemoglobin came up to7.6. Will repeat H&H in 4 hours and if hemoglobin remains stable patient will be discharged back to his ECF ? Patient repeat H&H came back at 8.1 patient was discharged back to his long-term facility. Patient is on Eliquis this was held for a week. 2. Stage IV chronic decubitus ulcer ? Patient is managed at the wound care center plan is for patient to resume care following discharge 3. History of L1 injury with paraplegic status complicated by chronic decubitus ulcers, Chronic Indwelling Campbell with Chronic pain syndrome: Encourage aggressive offloading, frequent positional changes, wound RN consulted, continue dressing changes, recent cautery at wound care [place] with no current active bleeding noted, PT/OT/case management consulted. 4. Chronic congestive heart failure with preserved ejection fraction ? Echo from 10/13/2024 demonstrated EF of 55 to 60%. Patient is on furosemide and currently remains compensated 5. History of bilateral pulmonary embolism ? Patient treated with apixaban held on admission given bleeding from his chronic decubitus ulcer 6. Diabetes mellitus type 2 ? Patient is on long-acting insulin in addition to scheduled short acting insulin did continue with home regiment. Also placed on 1800 ADA diet in addition to Accu-Cheks ACHS with sliding scale coverage 7. Class III obesity with BMI of 51.2 ? Complicating care 8. Obstructive sleep apnea ? BiPAP therapy at night 9. Essential hypertension ? Patient blood pressure remained stable 10. DVT prophylaxis ? Patient on apixaban held given the bleeding Time spent in the patient's overall evaluation,decision-making process, review of diagnostic data, adjustment of management, discussion with other providers, nursing nursing and ancillary staff involved in patient's care documentation, 50 Minutes Medications at Discharge Home Medications fluticasone propionate 50 mcg/actuation nasal spray,suspension (Flonase Allergy Relief) 1 spray intranasal DAILY shortness of breath 03/03/20 apixaban 5 mg tablet (Eliquis) 5 mg PO BID 07/29/23 Held on 01/19/25. Instructions: Resume on 01/25/25. methocarbamol 500 mg tablet 1,000 mg PO TID PRN cramps 07/29/23 polyethylene glycol 3350 17 gram/dose oral powder (ClearLax) 17 g PO TID constipation 07/29/23 pantoprazole 40 mg tablet,delayed release 40 mg PO DAILY stomach 08/31/23 aluminum-mag hydroxide-simethicone 400 mg-400 mg-40 mg/5 mL oral susp (Mag-Al Plus Extra Strength) 30 ml PO Q6H PRN PRN Gastric Burning #0 mL 09/13/23 amlodipine 10 mg tablet 10 mg PO DAILY #0 tabs 09/13/23 carvedilol 12.5 mg tablet 12.5 mg PO BIDCM #0 tabs 09/13/23 diphenhydramine HCl 25 mg capsule (Banophen) 25 mg PO TID PRN PRN Itching #0 caps 09/13/23 polysaccharide iron complex 150 mg iron capsule (Ferrex) 150 mg PO .QOD supplement 10/15/23 sennosides 8.6 mg-docusate sodium 50 mg tablet (Stool Softener-Stimulant Laxative) 2 tab PO BID Constipation 10/15/23 insulin lispro 100 unit/mL subcutaneous pen (Humalog KwikPen (U-100) Insulin) See Protocol subcut TID blood sugars 10/23/23 loratadine 10 mg tablet (Allerclear) 10 mg PO DAILY allergies 10/23/23 albuterol sulfate 2.5 mg/3 mL (0.083 %) solution for nebulization 2.5 mg inhalation BID wheezing 10/25/23 ascorbic acid (vitamin C) 500 mg tablet 500 mg PO QODAY supplement 03/26/24 dextrose 40 % oral gel (Glucose Gel) 10 g PO Q15M PRN hypoglycemia 03/26/24 naloxone 0.4 mg/mL injection syringe 0.4 mg IM Q5M PRN opioid reversal 03/26/24 ondansetron 4 mg disintegrating tablet 4 mg PO Q4H PRN nausea 03/26/24 sodium chloride 0.65 % nasal mist 2 spray intranasal Q2H PRN dry nasal passages 03/26/24 duloxetine 30 mg capsule,delayed release 90 mg PO QDAY mood 07/18/24 insulin glargine 100 unit/mL subcutaneous solution (Lantus U-100 Insulin) 20 unit subcut DAILY diabetes mellitus type 2 07/18/24 insulin lispro 100 unit/mL subcutaneous solution See Rx Instructions subcut .COMPLEX diabetes 07/18/24 metformin 500 mg tablet 1,000 mg PO BID diabetes 07/18/24 fenofibrate 54 mg tablet 54 mg PO QHS cholesterol 08/17/24 nystatin 100,000 unit/gram topical powder 1 applic topical BID rednes 08/17/24 acetaminophen 325 mg capsule 650 mg PO Q6H pain 10/12/24 acetic acid 0.25 % irrigation solution 30 ml irrigation BID suprapubic cath 10/12/24 artificial tears(ygyeciu-unvttlza-rrtogrp) 0.1 %-0.3 %-0.2 % eye drops (GenTeal Tears Moderate) 1 drp EACH EYE BID PRN dry eyes 10/12/24 glipizide 2.5 mg tablet, extended release 24 hr 2.5 mg PO DAILY diabetes 10/12/24 simethicone 80 mg chewable tablet (Gas Relief (simethicone)) 80 mg PO Q4H PRN gas 10/12/24 sodium hypochlorite 0.25 % solution (Dakin's Solution) 1 applic topical BID wound 10/12/24 guaifenesin 600 mg tablet, extended release 12 hr (Mucinex) 600 mg PO BID 7 days #0 tabs 11/01/24 L.acidophilus-L.bulgar-B.bifid-S.thermoph 1 billion cell-250 mg tablet (Probiotic Acidophilus (4 strain)) 1 tab PO BID #60 tabs 11/30/24 atorvastatin 40 mg tablet 40 mg PO DAILY 01/18/25 azithromycin 250 mg tablet 250 mg PO MOWEFR pneumonia 01/18/25 cholecalciferol (vitamin D3) 125 mcg (5,000 unit) tablet 125 mcg PO DAILY 01/18/25 dulaglutide 4.5 mg/0.5 mL subcutaneous pen injector (Trulicity) 4.5 mg subcut MO 01/18/25 furosemide 20 mg tablet 20 mg PO QHS 01/18/25 furosemide 40 mg tablet 40 mg PO DAILY 01/18/25 multivitamin-ferrous fumarate-folic acid 18 mg-400 mcg tablet (Tab-A-Milla Multivitamin w-iron) 1 tab PO DAILY 01/18/25 potassium chloride 20 mEq tablet,extended release(part/cryst) 20 meq PO DAILY 01/18/25 morphine 30 mg tablet,extended release 30 mg PO Q12H 2 days #4 tabs 01/19/25 oxycodone 10 mg tablet 10 mg PO 4X/DAY PRN PRN pain 3 days #14 tabs 01/19/25 Physical Exam Narrative GENERAL: cooperative HEENT: Atraumatic; normocephalic EYES; Anicteric, Normal Conjunctiva NECK; supple, normal thyroid, RESPIRATORY: Diminished to auscultation CARDIOVASCULAR: Regular S1 S2, GI: soft, normoactive bowel sounds, : No Renal angle tenderness; EXTREMITIES: No edema, no clubbing, MUSCULOSKELETAL: no muscle wasting NEURO: Awake; paraplegic SKIN: Sacral decubitus present on admission PSYCH; Flat affect Weight / BMI Weight Weight: 140 kg Body Mass Index (BMI) 48.3 ABG / Lab / Microbiology Data 01/19/25 13:01 01/19/25 07:20 Laboratory: Laboratory Results - last 24 hr 01/18/25 19:02: WBC 12.1 H, RBC 3.18 L, Hgb 6.4 L, Hct 23.3 L, MCV 73.3 L, MCH 20.1 L, MCHC 27.5 L, RDW Std Deviation 49.1 H, RDW Coeff of Mary 18.6 H, Plt Count 437, MPV 9.6, Sodium 136, Potassium 4.3, Chloride 94 L, Carbon Dioxide 29.8, Anion Gap 12, BUN 10, Creatinine 0.61 L, Estim Creat Clear Calc 189.32, Est GFR (MDRD) Non-Af 112, BUN/Creatinine Ratio 16.0, Glucose 187 H, Calcium 8.8, Phosphorus 4.2, Magnesium 1.7, Blood Type A POSITIVE, Antibody Screen NEGATIVE, Crossmatch See Detail 01/18/25 23:55: POC Glucose 165 H 01/19/25 06:56: POC Glucose 194 H 01/19/25 07:20: WBC 10.1, RBC 3.58 L, Hgb 7.6 L, Hct 26.7 L, MCV 74.6 L, MCH 21.2 L, MCHC 28.5 L, RDW Std Deviation 50.6 H, RDW Coeff of Mary 18.9 H, Plt Count 401, MPV 9.6, Immature Gran % (Auto) 1.300 H, Neut % (Auto) 62.4, Lymph % (Auto) 22.8, Stark % (Auto) 9.9, Eos % (Auto) 3.2, Baso % (Auto) 0.4, Absolute Neuts (auto) 6.3, Absolute Lymphs (auto) 2.30, Nucleated RBC % 0.5, Sodium 135, Potassium 4.0, Chloride 95 L, Carbon Dioxide 29.2, Anion Gap 12, BUN 11, Creatinine 0.59 L, Estim Creat Clear Calc 186.91, Est GFR (MDRD) Non-Af 113, BUN/Creatinine Ratio 19.5, Glucose 194 H, Calcium 8.4, Total Bilirubin 1.13, AST 25, ALT 8, Alkaline Phosphatase 69, Total Protein 6.9, Albumin 3.4 L, Globulin 3.5, Albumin/Globulin Ratio 1.0 01/19/25 11:06: POC Glucose 212 H 01/19/25 13:01: Hgb 8.1 L, Hct 28.5 L D/C Instructions DC O2, CPAP, BIPAP Needs Home O2 Discharge instructions: Yes Type of respiratory needs?: Oxygen (4) Oxygen frequency: Continuous Continuous oxygen liters per minute: 4 DC home with Oxygen: Yes Home O2 MD Review: I have reviewed the oxygen testing, and the patient qualifies for home oxygen equipment and portability. The patient is mobile in the home and the community. Meaningful Use Info Meaningful Use Meaningful Use Diagnoses (Choose all that apply): None applicable Discharge Plan Admission Admit Date/Time: 01/18/25 21:14 Attending Provider: Torrey Johnson Primary Care Provider: Wilma Thayer Consulting Providers: Terri Nino Discharge Orders/Prescriptions Prescriptions: Continued fluticasone propionate [Flonase Allergy Relief] 50 mcg/actuation spray,suspension 1 spray INTRANASAL DAILY Patient Comments: takes in once in awhile Rx Instructions: administer into each nostril naloxone 0.4 mg/mL syringe 0.4 mg IM Q5M PRN (Reason: opioid reversal) Rx Instructions: NTExceed 10 mg total dose/episode ondansetron 4 mg tablet,disintegrating 4 mg PO Q4H PRN (Reason: nausea) metformin 500 mg tablet 1,000 mg PO BID duloxetine 30 mg capsule,delayed release(DR/EC) 90 mg PO QDAY dextrose [Glucose Gel] 40 % gel 10 g PO Q15M PRN (Reason: hypoglycemia) Rx Instructions: until symptoms of low blood sugar are controlled sodium chloride 0.65 % mist 2 spray intranasal Q2H PRN (Reason: dry nasal passages) ascorbic acid (vitamin C) 500 mg tablet 500 mg PO QODAY pantoprazole 40 mg tablet,delayed release (DR/EC) 40 mg PO DAILY alum-mag hydroxide-simeth [Mag-Al Plus Extra Strength] 400-400-40 mg/5 mL Suspension 30 ml PO Q6H PRN PRN (Reason: Gastric Burning) Qty: 0 0RF carvedilol 12.5 mg Tablet 12.5 mg PO BIDCM Qty: 0 0RF amlodipine 10 mg Tablet 10 mg PO DAILY Qty: 0 0RF diphenhydramine HCl [Banophen] 25 mg Capsule 25 mg PO TID PRN PRN (Reason: Itching) Qty: 0 0RF polysaccharide iron complex [Ferrex 150] 150 mg iron Capsule 150 mg PO .QOD sennosides-docusate sodium [Stool Softener-Stimulant Laxat] 8.6-50 mg Tablet 2 tab PO BID albuterol sulfate 2.5 mg /3 mL (0.083 %) solution for nebulization 2.5 mg inhalation BID Rx Instructions: And q4hr prn guaifenesin [Mucinex] 600 mg Tablet Extended Release 12hr 600 mg PO BID 7 Days Qty: 0 0RF Probiotic Acidophilus (4 strn) 1 billion cell- 250 mg tablet 1 tab PO BID Qty: 60 1RF atorvastatin 40 mg tablet 40 mg PO DAILY azithromycin 250 mg tablet 250 mg PO MOWEFR furosemide 40 mg tablet 40 mg PO DAILY Patient Comments: 40 mg in the am, 20 mg at hs Tab-A-Milla Multivitamin w-iron 18-400 mg-mcg tablet 1 tab PO DAILY potassium chloride 20 mEq tablet,ER particles/crystals 20 meq PO DAILY cholecalciferol (vitamin D3) 125 mcg (5,000 unit) tablet 125 mcg PO DAILY Trulicity 4.5 mg/0.5 mL pen injector 4.5 mg SUBCUT MO Patient Comments: [NO ORIGINAL SIG] furosemide 20 mg tablet 20 mg PO QHS morphine 30 mg tablet extended release 30 mg PO Q12H 2 Days Qty: 4 0RF oxycodone 10 mg tablet 10 mg PO 4X/DAY PRN PRN (Reason: pain) 3 Days Qty: 14 0RF methocarbamol 500 mg tablet 1,000 mg PO TID PRN (Reason: cramps) polyethylene glycol 3350 [ClearLax] 17 gram/dose powder 17 g PO TID Patient Comments: for constipation with the colostomy now scheduled not prn insulin glargine [Lantus U-100 Insulin] 100 unit/mL solution 20 unit subcut DAILY insulin lispro 100 unit/mL solution See Rx Instructions subcut .COMPLEX Rx Instructions: subcutaneously; if 251-350=2u 351-400=4u loratadine [Allerclear] 10 mg tablet 10 mg PO DAILY Rx Instructions: am insulin lispro [Humalog KwikPen Insulin] 100 unit/mL Insulin Pen See Protocol subcut TID Protocol: 6. Sliding Scale Insulin Custom Condition: mg/dl range Dose/Route: Number of Units Condition: 251-350 Dose/Route: 2 Condition: >350 Dose/Route: 4 Protocol Text: Custom Sliding Scale Rx Instructions: 12 units before meals nystatin 100,000 unit/gram powder 1 applic topical BID fenofibrate 54 mg tablet 54 mg PO QHS simethicone [Gas Relief (simethicone)] 80 mg tablet,chewable 80 mg PO Q4H PRN (Reason: gas) acetic acid 0.25 % solution 30 ml irrigation BID Patient Comments: [NO ORIGINAL SIG] Dakin's Solution 0.25 % solution 1 applic topical BID artificial tear(nzjip-[id number]) [GenTeal Tears Moderate] 0.1-0.3-0.2 % drops 1 drp EACH EYE BID PRN (Reason: dry eyes) acetaminophen 325 mg capsule 650 mg PO Q6H glipizide 2.5 mg tablet extended release 24hr 2.5 mg PO DAILY Held Eliquis 5 mg tablet 5 mg PO BID Hold Instructions: Resume on 01/25/25. Referrals / Follow Up: Malys,Wilma, DO [Primary Care Provider] - Within 1 Week [facility] and [Non-Staff] - 01/21/25 Disposition Disposition (needs filled in before D/C Order can be placed): NonSkilled NH/Intermed Care Charges/Coding Visit Charges Inpatient E&M: 71581 Disch Hosp >30min
--- NOTE | 2025-01-19 13:47 | PCM.TXEXTCAR ---
Diet Diet Order/Speech Therapy: INPATIENT Hospital Diet / Speech Therapy Order(s) 01/19/25 12:14 Diet: Cardiac: Calorie-Controlled Type of Dietary Supplement:: Wiliam Diet Comments: Wiliam w/ lunch and dinner; 1 extra oz protein w/ all meals How many daily calories?: 1800 calorie Routine Orders/Code Status Code Status: Full Code DC O2, CPAP, BIPAP needs Home O2 Discharge instructions: Yes Type of respiratory needs?: Oxygen (4) Oxygen frequency: Continuous Continuous oxygen liters per minute: 4 Wound(s) buttock: Wound Type: Pressure Injury LEFT LOWER CALF: Wound Type: Pressure Injury Therapies Physical Therapy: Eval and Treat Occupational Therapy: Eval and Treat Problem/Diagnosis (1) Acute on chronic anemia: Status: Chronic Code(s): D64.9 - Anemia, unspecified Plan Patient is a 59-year-old gentleman resident at an SNF care facility brought from the wound care center with low hemoglobin of 6.8 1. Acute on chronic blood loss anemia from decubitus ulcer ? Patient was admitted to regular nursing floor, patient was transfused with 2 unit PRBC hemoglobin came up to7.6. Will repeat H&H in 4 hours and if hemoglobin remains stable patient will be discharged back to his ECF ? Patient repeat H&H came back at 8.1 patient was discharged back to his long-term facility. Patient is on Eliquis this was held for a week. 2. Stage IV chronic decubitus ulcer ? Patient is managed at the wound care center plan is for patient to resume care following discharge 3. History of L1 injury with paraplegic status complicated by chronic decubitus ulcers, Chronic Indwelling Campbell with Chronic pain syndrome: Encourage aggressive offloading, frequent positional changes, wound RN consulted, continue dressing changes, recent cautery at wound care center with no current active bleeding noted, PT/OT/case management consulted. 4. Chronic congestive heart failure with preserved ejection fraction ? Echo from 10/13/2024 demonstrated EF of 55 to 60%. Patient is on furosemide and currently remains compensated 5. History of bilateral pulmonary embolism ? Patient treated with apixaban held on admission given bleeding from his chronic decubitus ulcer 6. Diabetes mellitus type 2 ? Patient is on long-acting insulin in addition to scheduled short acting insulin did continue with home regiment. Also placed on 1800 ADA diet in addition to Accu-Cheks ACHS with sliding scale coverage 7. Class III obesity with BMI of 51.2 ? Complicating care 8. Obstructive sleep apnea ? BiPAP therapy at night 9. Essential hypertension ? Patient blood pressure remained stable 10. DVT prophylaxis ? Patient on apixaban held given the bleeding Time spent in the patient's overall evaluation,decision-making process, review of diagnostic data, adjustment of management, discussion with other providers, nursing nursing and ancillary staff involved in patient's care documentation, 50 Minutes Allergies/Procedures Done in Hospital Allergies adhesive tape Adverse Reaction (Severe, Verified 01/18/25 23:09) rash and rapid skin breakdown Type of Care/Length of Stay Estimated LOS: More Than 30 Days Type of Care Needed: Intermediate Rehab Potential: Fair Prognosis: Fair Additional Orders/Day of Discharge Day of Discharge: 01/19/25 Dietary and Speech Recommendations Dietitian Recommendations/Changes: Will change diet to Cardiac/ 1800 vernon Consistent CHO w/ extra oz protein w/ meals tid. Will order Wiliam bid w/ lunch and dinner for increased nutrition if consumed. Discharge Plan Admission Admit Date/Time: 01/18/25 21:14 Attending Provider: Torrey Johnson Primary Care Provider: Wilma Thayer Consulting Providers: Terri Nino Discharge Orders/Prescriptions Prescriptions: Continued fluticasone propionate [Flonase Allergy Relief] 50 mcg/actuation spray,suspension 1 spray INTRANASAL DAILY Patient Comments: takes in once in awhile Rx Instructions: administer into each nostril naloxone 0.4 mg/mL syringe 0.4 mg IM Q5M PRN (Reason: opioid reversal) Rx Instructions: NTExceed 10 mg total dose/episode ondansetron 4 mg tablet,disintegrating 4 mg PO Q4H PRN (Reason: nausea) metformin 500 mg tablet 1,000 mg PO BID duloxetine 30 mg capsule,delayed release(DR/EC) 90 mg PO QDAY dextrose [Glucose Gel] 40 % gel 10 g PO Q15M PRN (Reason: hypoglycemia) Rx Instructions: until symptoms of low blood sugar are controlled sodium chloride 0.65 % mist 2 spray intranasal Q2H PRN (Reason: dry nasal passages) ascorbic acid (vitamin C) 500 mg tablet 500 mg PO QODAY pantoprazole 40 mg tablet,delayed release (DR/EC) 40 mg PO DAILY alum-mag hydroxide-simeth [Mag-Al Plus Extra Strength] 400-400-40 mg/5 mL Suspension 30 ml PO Q6H PRN PRN (Reason: Gastric Burning) Qty: 0 0RF carvedilol 12.5 mg Tablet 12.5 mg PO BIDCM Qty: 0 0RF amlodipine 10 mg Tablet 10 mg PO DAILY Qty: 0 0RF diphenhydramine HCl [Banophen] 25 mg Capsule 25 mg PO TID PRN PRN (Reason: Itching) Qty: 0 0RF polysaccharide iron complex [Ferrex 150] 150 mg iron Capsule 150 mg PO .QOD sennosides-docusate sodium [Stool Softener-Stimulant Laxat] 8.6-50 mg Tablet 2 tab PO BID albuterol sulfate 2.5 mg /3 mL (0.083 %) solution for nebulization 2.5 mg inhalation BID Rx Instructions: And q4hr prn guaifenesin [Mucinex] 600 mg Tablet Extended Release 12hr 600 mg PO BID 7 Days Qty: 0 0RF Probiotic Acidophilus (4 strn) 1 billion cell- 250 mg tablet 1 tab PO BID Qty: 60 1RF atorvastatin 40 mg tablet 40 mg PO DAILY azithromycin 250 mg tablet 250 mg PO MOWEFR furosemide 40 mg tablet 40 mg PO DAILY Patient Comments: 40 mg in the am, 20 mg at hs Tab-A-Milla Multivitamin w-iron 18-400 mg-mcg tablet 1 tab PO DAILY potassium chloride 20 mEq tablet,ER particles/crystals 20 meq PO DAILY cholecalciferol (vitamin D3) 125 mcg (5,000 unit) tablet 125 mcg PO DAILY Trulicity 4.5 mg/0.5 mL pen injector 4.5 mg SUBCUT MO Patient Comments: [NO ORIGINAL SIG] furosemide 20 mg tablet 20 mg PO QHS morphine 30 mg tablet extended release 30 mg PO Q12H 2 Days Qty: 4 0RF oxycodone 10 mg tablet 10 mg PO 4X/DAY PRN PRN (Reason: pain) 3 Days Qty: 14 0RF methocarbamol 500 mg tablet 1,000 mg PO TID PRN (Reason: cramps) polyethylene glycol 3350 [ClearLax] 17 gram/dose powder 17 g PO TID Patient Comments: for constipation with the colostomy now scheduled not prn insulin glargine [Lantus U-100 Insulin] 100 unit/mL solution 20 unit subcut DAILY insulin lispro 100 unit/mL solution See Rx Instructions subcut .COMPLEX Rx Instructions: subcutaneously; if 251-350=2u 351-400=4u loratadine [Allerclear] 10 mg tablet 10 mg PO DAILY Rx Instructions: am insulin lispro [Humalog KwikPen Insulin] 100 unit/mL Insulin Pen See Protocol subcut TID Protocol: 6. Sliding Scale Insulin Custom Condition: mg/dl range Dose/Route: Number of Units Condition: 251-350 Dose/Route: 2 Condition: >350 Dose/Route: 4 Protocol Text: Custom Sliding Scale Rx Instructions: 12 units before meals nystatin 100,000 unit/gram powder 1 applic topical BID fenofibrate 54 mg tablet 54 mg PO QHS simethicone [Gas Relief (simethicone)] 80 mg tablet,chewable 80 mg PO Q4H PRN (Reason: gas) acetic acid 0.25 % solution 30 ml irrigation BID Patient Comments: [NO ORIGINAL SIG] Dakin's Solution 0.25 % solution 1 applic topical BID artificial tear([id number]) [GenTeal Tears Moderate] 0.1-0.3-0.2 % drops 1 drp EACH EYE BID PRN (Reason: dry eyes) acetaminophen 325 mg capsule 650 mg PO Q6H glipizide 2.5 mg tablet extended release 24hr 2.5 mg PO DAILY Held Eliquis 5 mg tablet 5 mg PO BID Hold Instructions: Resume on 01/25/25. Referrals / Follow Up: Wilma Thayer DO [Primary Care Provider] - Within 1 Week [facility],[place] [facility] and [Non-Staff] - 01/21/25 Disposition Disposition (needs filled in before D/C Order can be placed): NonSkilled NH/Intermed Care
== END 2025-01-19 18:00 | disposition skilled nursing facility (03) ==
LOC: ED 19:29 → MS3 21:27
PROVIDERS: Admitting Provider Family Medicine; Emergency Provider Emergency Medicine; PCP Family Medicine; Visit Provider Internal Medicine
DX: D62 Acute posthemorrhagic anemia (principal); L89.154 Pressure ulcer of sacral region, stage 4; L89.614 Pressure ulcer of right heel, stage 4; L89.624 Pressure ulcer of left heel, stage 4; L89.894 Pressure ulcer of other site, stage 4; L89.213 Pressure ulcer of right hip, stage 3; G82.20 Paraplegia, unspecified; L89.222 Pressure ulcer of left hip, stage 2; Z93.3 Colostomy status; J96.22 Acute and chronic respiratory failure with hypercapnia; J96.21 Acute and chronic respiratory failure with hypoxia; Z68.43 Body mass index [BMI] 50.0-59.9, adult; E66.813 Obesity, class 3; E11.42 Type 2 diabetes mellitus with diabetic polyneuropathy; Z79.4 Long term (current) use of insulin; Z79.899 Other long term (current) drug therapy; N13.9 Obstructive and reflux uropathy, unspecified; I10 Essential (primary) hypertension; Z79.01 Long term (current) use of anticoagulants; G89.4 Chronic pain syndrome; Z87.891 Personal history of nicotine dependence; Z86.711 Personal history of pulmonary embolism; Z79.84 Long term (current) use of oral hypoglycemic drugs; E78.5 Hyperlipidemia, unspecified; K21.9 Gastro-esophageal reflux disease without esophagitis; I89.0 Lymphedema, not elsewhere classified; G47.33 Obstructive sleep apnea (adult) (pediatric); Z79.51 Long term (current) use of inhaled steroids; Z99.81 Dependence on supplemental oxygen; K59.09 Other constipation; F41.9 Anxiety disorder, unspecified; F32.A Depression, unspecified
CPT/HCPCS: 11042; 11043; 11046; 17250; 36415; 36430; 80048; 80053; 82962; 83735; 84100; 85014; 85018; 85025; 85027; 86850; 86900; 86901; 86920; 86921; 86922; 87070; 87075; 87077; 87186; 87205; 94002; 94640; 94668; 96374; 96376; 97802; 99221; 99285; P9016; A4216; G0378

== ENCOUNTER 2025-01-29 07:53 | Inpatient (IN) | payer MEDICAID, SELFPAY ==
[2025-01-29] VITALS (28 sets, daily range): BP systolic 118–153; BP diastolic 56–80; PULSE 93–107; RESP 12–28; TEMP 35.8–36.9; O2SAT 85–100; BMI 51.0; BMI 47.1
--- NOTE | 2025-01-29 08:11 | EKG12_ITS ---
Test Reason : SOB Blood Pressure : */* mmHG Vent. Rate : 99 BPM Atrial Rate : 99 BPM P-R Int : 196 ms QRS Dur : 156 ms QT Int : 408 ms P-R-T Axes : 54 -76 18 degrees QTcB Int : 523 ms Normal sinus rhythm Left axis deviation Right bundle branch block Possible Lateral infarct (cited on or before 29-Jul-2023) Abnormal ECG Confirmed by ANG BEVERLY, MINOR ([id number]), department editor CHANDRA GABRIEL [id number]) on 01/30/2025 9:40:45 AM Referred By: TISH Confirmed By: MINOR FRY MD
--- NOTE | 2025-01-29 08:13 | ED.VIS.DYS ---
HPI History of Present Illness Chief Complaint: Shortness of Breath Informant: patient Narrative Narrative: Patient is a 59-year-old male with history BATOOL on BiPAP, hypertension, loculated pleural effusion, diabetes mellitus, paraplegia with chronic indwelling Campbell catheter, colostomy and sacral decubitus ulcers, chronic anticoagulation on Eliquis (just resumed 4 days ago) presenting for worsening shortness of breath and hypoxia. Patient wears 3 to 4 L of oxygen at baseline. He is from nursing facility. He notes that since last night he has been very short of breath and had a hard time breathing. His oxygen was in the 70s and I could not get him up and he was sent to the ER before he EMS. He arrived on nonrebreather and oxygen 91%. He states they did try some BiPAP this morning but he has not been wearing his BiPAP the last 2 nights because he is in a lot of nasal congestion. States his mouth feels dry. He denies any fevers. Denies any chest pain. No GI or symptoms reported. Denies feeling lightheaded. Came in for further evaluation. [facility] Medical History MRSA (methicillin resistant staph aureus) culture positive MDR Acinetobacter baumannii infection VRE (vancomycin resistant enterococcus) culture positive Decubitus ulcer of sacral region, stage 4 Lymphedema BATOOL treated with BiPAP Abscess of back Constipation Pressure ulcer of sacral region Chronic indwelling Campbell catheter Blood loss anemia Clot retention of urine Pressure injury, unstageable, with eschar Bilateral pulmonary embolism Rhabdomyolysis Community acquired pneumonia Hypoglycemia Acute osteomyelitis of spine Former tobacco use Paraplegia Cellulitis of leg without foot, right Anemia BMI greater than 40 Type 2 diabetes mellitus HTN (hypertension) H/o back surgery Home Medications ?Medication ?Instructions ?Recorded ?Last Taken ?Type fluticasone propionate 50 1 spray intranasal DAILY shortness 03/03/20 Unknown History mcg/actuation nasal of breath spray,suspension (Flonase Allergy Relief) apixaban 5 mg tablet (Eliquis) 5 mg PO BID 07/29/23 08/31/23 History methocarbamol 500 mg tablet 1,000 mg PO TID cramps 07/29/23 08/31/23 History polyethylene glycol 3350 17 17 g PO TID constipation 07/29/23 07/29/23 History gram/dose oral powder (ClearLax) pantoprazole 40 mg tablet,delayed 40 mg PO DAILY stomach 08/31/23 08/31/23 History release aluminum-mag hydroxide-simethicone 30 ml PO Q6H PRN PRN Gastric 09/13/23 Unknown Rx 400 mg-400 mg-40 mg/5 mL oral susp Burning #0 mL (Mag-Al Plus Extra Strength) amlodipine 10 mg tablet 10 mg PO DAILY #0 tabs 09/13/23 Unknown Rx carvedilol 12.5 mg tablet 12.5 mg PO BIDCM #0 tabs 09/13/23 Unknown Rx diphenhydramine HCl 25 mg capsule 25 mg PO TID PRN PRN Itching #0 09/13/23 Unknown Rx (Banophen) caps polysaccharide iron complex 150 mg 150 mg PO DAILY supplement 10/15/23 Unknown History iron capsule (Ferrex) sennosides 8.6 mg-docusate sodium 2 tab PO BID Constipation 10/15/23 Unknown History 50 mg tablet (Stool Softener-Stimulant Laxative) insulin lispro 100 unit/mL See Protocol subcut TID blood 10/23/23 Unknown History subcutaneous pen (Humalog KwikPen sugars (U-100) Insulin) loratadine 10 mg tablet 10 mg PO DAILY allergies 10/23/23 Unknown History (Allerclear) albuterol sulfate 2.5 mg/3 mL 2.5 mg inhalation BID wheezing 10/25/23 Unknown History (0.083 %) solution for nebulization ascorbic acid (vitamin C) 500 mg 500 mg PO DAILY supplement 03/26/24 Unknown History tablet dextrose 40 % oral gel (Glucose 10 g PO Q15M PRN hypoglycemia 03/26/24 Unknown History Gel) naloxone 0.4 mg/mL injection 0.4 mg IM Q5M PRN opioid reversal 03/26/24 Unknown History syringe ondansetron 4 mg disintegrating 4 mg PO Q4H PRN nausea 03/26/24 Unknown History tablet sodium chloride 0.65 % nasal mist 2 spray intranasal Q2H PRN dry 03/26/24 Unknown History nasal passages duloxetine 30 mg capsule,delayed 90 mg PO QDAY mood 07/18/24 10/28/24 History release insulin glargine 100 unit/mL 20 unit subcut DAILY diabetes 07/18/24 Unknown History subcutaneous solution (Lantus mellitus type 2 U-100 Insulin) insulin lispro 100 unit/mL See Rx Instructions subcut 07/18/24 Unknown History subcutaneous solution .COMPLEX diabetes metformin 500 mg tablet 1,000 mg PO BID diabetes 07/18/24 Unknown History fenofibrate 54 mg tablet 54 mg PO QHS cholesterol 08/17/24 Unknown History nystatin 100,000 unit/gram topical 1 applic topical BID rednes 08/17/24 Unknown History powder acetaminophen 325 mg capsule 650 mg PO Q6H pain 10/12/24 Unknown History acetic acid 0.25 % irrigation 30 ml irrigation BID suprapubic 10/12/24 Unknown History solution cath artificial 1 drp EACH EYE BID PRN dry eyes 10/12/24 Unknown History tears(rhsvvyv-huafizwb-swoxvyh) 0.1 %-0.3 %-0.2 % eye drops (GenTeal Tears Moderate) glipizide 2.5 mg tablet, extended 2.5 mg PO DAILY diabetes 10/12/24 Unknown History release 24 hr simethicone 80 mg chewable tablet 80 mg PO Q4H PRN gas 10/12/24 Unknown History (Gas Relief (simethicone)) sodium hypochlorite 0.25 % 1 applic topical BID wound 10/12/24 Unknown History solution (Dakin's Solution) guaifenesin 600 mg tablet, 600 mg PO BID 7 days #0 tabs 11/01/24 Unknown Rx extended release 12 hr (Mucinex) atorvastatin 40 mg tablet 40 mg PO DAILY 01/18/25 Unknown History azithromycin 250 mg tablet 250 mg PO MOWEFR pneumonia 01/18/25 Unknown History cholecalciferol (vitamin D3) 125 125 mcg PO DAILY 01/18/25 Unknown History mcg (5,000 unit) tablet dulaglutide 4.5 mg/0.5 mL 4.5 mg subcut MO 01/18/25 Unknown History subcutaneous pen injector (Trulicity) furosemide 20 mg tablet 20 mg PO QHS 01/18/25 Unknown History furosemide 40 mg tablet 40 mg PO DAILY 01/18/25 Unknown History multivitamin-ferrous 1 tab PO DAILY 01/18/25 Unknown History fumarate-folic acid 18 mg-400 mcg tablet (Tab-A-Milla Multivitamin w-iron) potassium chloride 20 mEq 20 meq PO DAILY 01/18/25 Unknown History tablet,extended release(part/cryst) morphine 30 mg tablet,extended 30 mg PO Q12H 2 days #4 tabs 01/19/25 Unknown Rx release L.acidophilus-L.bulgar-B.bifid-S.thermoph 1 tab PO DAILY 01/29/25 Unknown History 1 billion cell-250 mg tablet (Probiotic Acidophilus (4 strain)) linezolid 600 mg tablet 600 mg PO BID 01/29/25 Unknown History oxycodone 10 mg tablet 10 mg PO Q6H pain 01/29/25 Unknown History Allergy/AdvReac Type Severity Reaction Status Date / Time adhesive tape AdvReac Severe rash and Verified 01/29/25 08:05 rapid skin breakdown Family History Mother Hypertension Hypotension Diabetes Arthritis Father Hypertension Hypotension Heart disease Status post double vessel coronary artery bypass angina Arthritis Grandfather Prostate cancer Grandmother Uterine cancer Surgical History History of hip replacement Colostomy status Hx of spinal surgery H/O sinus surgery Social History housing: senior living current occupational status: employed and retired Smoking Status: Former smoker alcohol intake: never substance use type: does not use do you feel safe at home: Yes ROS ROS ED Constitutional Constitutional ED: Denies chills or fever(s) ENT ENT ED: Reports sore throat and other Details: Nasal congestion ; Denies ear pain or rhinorrhea Cardiovascular Cardiovascular: Denies chest pain or palpitations Respiratory/Chest Respiratory/Chest: Reports cough and dyspnea Gastrointestinal Gastrointestinal: Reports other Details: Colostomy ; Denies nausea or vomiting Genitourinary Genitourinary ED: Reports other Details: Chronic indwelling Campbell catheter Musculoskeletal Musculoskeletal: Denies myalgias Integumentary Reports other Details: Chronic sacral wound Neurologic Neurologic: Reports other Details: Paraplegia ; Denies weakness Hematologic/Lymphatic Hematologic/Lymphatic: Reports easy bleeding and easy bruising EXAM Physical Exam Const Vital Signs: 01/29/25 07:54 01/29/25 08:08 01/29/25 08:09 Temperature 98.0 F 98.0 F Temperature Source Oral Temporal Pulse Rate 107 H 101 H Respiratory Rate 20 H 18 Respiratory Effort Short of Breath Labored Respiratory Depth Normal Respiratory Pattern Normal Blood Pressure 151/73 H 152/72 H Blood Pressure Mean 99 98 Pulse Ox 91 95 Oxygen Delivery Method Non-Rebreather Non-Rebreather Oxygen Flow Rate (L/min) 15 15 Fraction of Inspired Oxygen (FIO2) 01/29/25 08:13 01/29/25 08:20 01/29/25 08:55 Temperature 98.3 F Temperature Source Oral Pulse Rate 99 96 Respiratory Rate 14 12 Respiratory Effort Respiratory Depth Respiratory Pattern Blood Pressure 118/56 L Blood Pressure Mean 76 Pulse Ox 94 92 94 Oxygen Delivery Method Non-Rebreather Airvo Oxygen Flow Rate (L/min) 15 55 Fraction of Inspired Oxygen (FIO2) 65 65 01/29/25 10:00 Temperature 98.2 F Temperature Source Oral Pulse Rate 93 Respiratory Rate 18 Respiratory Effort Respiratory Depth Respiratory Pattern Blood Pressure 153/74 H Blood Pressure Mean 100 Pulse Ox 93 Oxygen Delivery Method Airvo Oxygen Flow Rate (L/min) Fraction of Inspired Oxygen (FIO2) Positive well nourished and well developed Constitutional Narrative: Chronically ill-appearing, in acute respiratory distress General Appearance ED: well developed HEENT Reports TM's clear and dry mucous membranes Tympanic Membrane ED: Yes TM's clear Mouth ED: Yes dry mucous membranes Mouth: dry mucous membranes Eyes PERRL Neck supple and no JVD Resp Resp Narrative: Tachypneic, no crackles appreciated. Wet/rhonchorous upper respiratory noises appreciated. Auscultation: Negative for wheezes or diminished lung sounds Cardio regular rhythm and no murmurs Rate: tachycardic GI non-tender and non-distended GI Narrative: Colostomy in place. Mild prolapse of the stoma present, chronic for the patient. Auscultation: normoactive bowel sounds Palpation: soft; Negative for tender or guarding Extremity Extremity Narrative: 2+ pedal edema present Neuro oriented x3 Neuro Narrative: Chronic paralysis of the lower extremities, weakness of upper extremity Sensorium / Orientation: alert Motor Exam: general weakness Skin Skin Narrative: Sacral decubitus wound present MDM MDM MDM Narrative Medical decision making narrative: Patient evaluated for acute respiratory distress and increased work of breathing as well as increased O2 requirements. Upon arrival patient is 91 percent on nonrebreather. He is mentating well and low suspicion for acute hypercapnia based on his mental status at this time. Transition to Airvo I suspect he would benefit more from high flow oxygen than the true PEEP. He tolerates this well and clinically is improving. Presentation is mixed picture of infectious etiology versus possible fluid overload. Given that he had preceding sinus congestion for couple days and has a lot of transmitted upper respiratory noises I am leaning more towards infectious etiology. She is covered for pneumonia with Rocephin and azithromycin. CBC shows a mild elevation of his white blood cell count at 11.2 which is nonspecific. Does not have a left shift. He does have a chronic anemia with a hemoglobin down to 7.0. He did have recent mission for blood transfusion and might require another blood transfusion. His BNP is normal at 370. Chest x-ray shows chronic changes with no acute infiltrate or pleural effusions. Lactate normal at 1.5. High-sensitivity troponin is elevated at 216 however his EKG does not show any acute ischemic changes. Case was discussed with cardiology, Dr. Alcantara. He suspects is likely demand ischemia from his prior hypoxia. Will continue to monitor but would not treat as a primary cardiac cause. Troponin is downtrending in the emergency room. Patient's is not given aggressive IV fluids in the ER due to concern for possible fluid overload as a cause of his respiratory symptoms. Case discussed with hospitalist, Dr. Fuentes for admission. Patient be admit to the ICU. Patient's case is also discussed with critical care doctor, Dr. Tuttle. Lab Data Attestation: I reviewed the patient's lab results. Labs: Laboratory Results - last 24 hr 01/29/25 01/29/25 08:05 10:15 WBC 11.2 H RBC 3.45 L Hgb 7.0 L Hct 26.2 L MCV 75.9 L MCH 20.3 L MCHC 26.7 L RDW Std Deviation 54.1 H RDW Coeff of Mary 20.1 H Plt Count 487 H MPV 9.3 Immature Gran % (Auto) 0.500 Neut % (Auto) 73.0 H Lymph % (Auto) 17.6 L [place] % (Auto) 6.7 Eos % (Auto) 1.8 Baso % (Auto) 0.4 Absolute Neuts (auto) 8.2 H Absolute Lymphs (auto) 1.97 Nucleated RBC % 0 Polychromasia RARE Anisocytosis 2+ Sodium 135 Potassium 4.9 Chloride 93 L Carbon Dioxide 31.0 Anion Gap 12 BUN 18 Creatinine 0.79 Estim Creat Clear Calc 144.08 Est GFR (MDRD) Non-Af 103 BUN/Creatinine Ratio 23.1 H Glucose 208 H Lactic Acid 1.5 Calcium 8.8 Magnesium 2.0 Troponin T High Sens 216 H* D Troponin T Hi Sens 2 Hr 205 H* NT pro BNP II 370 ABG Data ABG results: ABG 01/29/25 08:53 Specimen Type ART Sample Site R Brach pH 7.37 Bicarbonate Actual 39.1 H Total CO2 41 Base Excess 14 H O2 Saturation 91 L O2 % 65.0 ABG pCO2 68.5 H* ABG pO2 66 L O2 Delivery Device Airvo Vent Mode Not entered Crit Call To/Read Back Yes Blood Gas Notified Whom Dr. Thompson Blood Gas Notified Time 904 Clinical Comments 55lpm Radiography Chest X-Ray - ED: 1 View, Read by ED Physician, Read by Radiologist, No Acute Disease and Chronic Changes Diagnostic Testing: Clinical Impression(s) from Imaging Studies Chest X-Ray 01/29/25 08:30 IMPRESSION: Acute kyphosis above the patient's thoracolumbar fusion. There is associated hypoventilation with atelectasis in the lower lungs. A significant portion of the atelectasis is likely related to body habitus and positioning. Reading Location: [facility] Rhythm Strip Rhythm Strip: Sinus Rhythm Rate: 99 Ectopy: None EKG Initial EKG: Attestation: I personally reviewed and interpreted this EKG as follows: Interpretation: Sinus Rhythm Comments: Normal sinus rhythm rate of 99 bpm Left axis deviation Right bundle branch block Normal ST segments Compared to prior EKG on 10/29/2024, no acute change Differential Diagnosis Chest pain/SOB: pulmonary embolism Reason(s) PE less likely: Positive for patient taking oral anticoagulants, ACS ACS: Positive for EKG without ischemia and history not suggestive of ischemia pain and COPD Reason(s) COPD less likely: Positive for no significant wheezing on exam and normal air movement noted on auscultation on lungs Management Discussion w/another healthcare provider: Hospitalist and Managing Partner [employer] (Cardiology, critical care) Critical Care Time Critical Care Time: Yes Critical care time (excluding procedures): 30-74 minutes (39), Discussing w/Patient &/or Family/Water Taxi Captain, Discussing w/Consultants and Arranging Admission or Transfer Discharge Plan Dx/Rx/DC Orders Clinical Impression: Acute and chronic respiratory failure with hypoxia, Elevated troponin, Pneumonia, Iron deficiency anemia, Colostomy status, Chronic indwelling Campbell catheter, Chronic anticoagulation, History of paraplegia Disposition Disposition: Acute Care Hospital [facility] Discharge Date/Time: 01/29/25 12:10
[2025-01-29] MEDS: 0.9% Normal Saline (1000mL) 1,000 ML 150 ML IV (08:26)
--- NOTE | 2025-01-29 08:30 | RAD_ITS ---
PROCEDURE: CHEST 1 VIEW (PORTABLE) 01/29/2025 REASON FOR EXAM: SOB< HYPOXIA TECHNIQUE: Frontal view of the chest. COMPARISON: October 29, 2024 FINDINGS: Hardware: Posterior fusion thoracolumbar spine. Heart: Normal size Lungs: Hypoventilated with atelectasis in the lingula, right middle lobe and both lower lobes. Scant pleural fluid may be present. No pneumothorax. Bones: Acute kyphosis above the fusion with straightening of the thoracic spine. RAD/Chest 1 View (Portable) IMPRESSION: Acute kyphosis above the patient's thoracolumbar fusion. There is associated h ypoventilation with atelectasis in the lower lungs. A significant portion of the atelectasis is likely related to body habi tus and positioning. Reading Location: [id number]
[2025-01-29 08:52] LABS: Hematocrit 26.2 % (40-54); Hemoglobin 7.0 g/dL (13.0-16.5); Immature Granulocytes Count 0.060 X10^3/uL (0.0-0.0); Mean Corp Hgb Conc 26.7 g/dL (32-36); Mean Corpuscular Volume 75.9 fL (80-94); Mean Platelet Vol. 9.3 fl (6.2-12.0); NRBC Flagged by Analyzer 0 % (0-5); POSITIVE MORPHOLOGY YES; Platelet Count 487 K/mm3 (150-450); RBC Distribution Width CV 20.1 % (11.6-14.6); RBC Distribution Width SD 54.1 fl (35.1-43.9); Red Blood Count 3.45 M/mm3 (4.6-6.2); White Blood Count 11.2 K/mm3 (4.4-11.0)
[2025-01-29 08:53] LABS: Differential Indicated SCAN CRITERIA MET
[2025-01-29 08:58] LABS: Base Excess 14 mmol/L (-2 to +2); Comment 55lpm; FI02 65.0; PO2 66 mmHG (75-100); SITE R Brach; SO2 91 % (95-99)
[2025-01-29 09:24] LABS: Anisocytosis 2+; Polychromasia RARE
[2025-01-29 09:32] LABS: Pro- Brain NATRIURETIC PEPTIDE 370 pg/mL (<=900); Troponin T High Sensitivity 216 ng/L (<=22)
--- NOTE | 2025-01-29 09:35 | ED.RN ---
lab called and trop in 216. Rn & Dr Thompson notified
[2025-01-29 09:47] LABS: Time Given 0905
[2025-01-29 09:58] LABS: Anion Gap 12 (5-15); BUN 18 mg/dL (4-19); BUN/Creat Ratio 23.1 RATIO (10-20); Calcium,Total 8.8 mg/dL (7.6-11.0); Carbon Dioxide 31.0 mmol/L (21.0-32.0); Chloride 93 mmol/L (98-108); Estimated Creatinine Clearance 144.08 ml/min (50-250); Glucose 208 mg/dL (70-99); Potassium 4.9 mmol/L (3.3-5.1)
--- NOTE | 2025-01-29 10:30 | HP.PCM.HOS_ITS ---
HPI - General General Date of Admission: 01/29/25 Date of Service: 01/29/25 Chief Complaint: Hypoxia on 15 L, shortness of breath HPI Narrative MELISSA ELIAS, is a 59 M who is brought to ED by EMS for hypoxia, pulse ox 85% on 15 L of oxygen. The patient is very debilitated, BATOOL on BiPAP, paraplegic with no sensation below waist level, has colostomy and stage IV coccygeal ulcer follows wound clinic Dr. Outside Patient stated that he felt short of breath last night and pulse ox was 70% on usual 4 L of oxygen and then he was put on nonrebreather. Patient has URI symptoms and congestion but denies significant cough or sputum production. Denies wheezing. Patient was discharged on 01/19 after PRBC transfusion for severe anemia, acute on chronic blood loss anemia from decubitus ulcer. Eliquis was held and resumed 4 days ago. In ED, he was put on Airvo, cafeteria monitor consulted, started on IV antibiotics. Discontinue IV fluid [facility] Medical History MDR Acinetobacter baumannii infection VRE (vancomycin resistant enterococcus) culture positive Decubitus ulcer of sacral region, stage 4 Lymphedema BATOOL treated with BiPAP Abscess of back Constipation Pressure ulcer of sacral region Chronic indwelling Campbell catheter Blood loss anemia Clot retention of urine Pressure injury, unstageable, with eschar Bilateral pulmonary embolism Rhabdomyolysis Community acquired pneumonia Hypoglycemia Acute osteomyelitis of spine Former tobacco use Paraplegia Cellulitis of leg without foot, right Anemia BMI greater than 40 Type 2 diabetes mellitus HTN (hypertension) H/o back surgery Home Medications ?Medication ?Instructions ?Recorded ?Last Taken ?Type fluticasone propionate 50 1 spray intranasal DAILY haim rtness 03/03/20 Unknown History mcg/actuation nasal of breath spray,suspension (Flonase Allergy Relief) apixaban 5 mg tablet (Eliquis) 5 mg PO BID 07/29/23 History methocarbamol 500 mg tablet 1,000 mg PO TID cramps 08/31/23 History polyethylene glycol 3350 17 17 g PO TID constipation 0 07/29/23 07/29/23 History gram/dose oral powder (ClearLax) pantoprazole 40 mg tablet,delayed 40 mg PO DAILY stoma ch 08/31/23 08/31/23 History release aluminum-mag hydroxide-simethicone 30 ml PO Q6H PRN OR N Gastric 09/13/23 Unknown Rx 400 mg-400 mg-40 mg/5 mL oral susp Burning #0 mL (Mag-Al Plus Extra Strength) amlodipine 10 mg tablet 10 mg PO DAILY #0 tabs 09/12 Unknown Rx carvedilol 12.5 mg tablet 12.5 mg PO BIDCM #0 tabs Unknown Rx diphenhydramine HCl 25 mg capsule 25 mg PO TID PRN PRN Itching #0 09/13/23 Unknown Rx (Banophen) caps polysaccharide iron complex 150 mg 150 mg PO DAILY sup plement 10/15/23 Unknown History iron capsule (Ferrex) sennosides 8.6 mg-docusate sodium 2 tab PO BID Constip ation 10/15/23 Unknown History 50 mg tablet (Stool Softener-Stimulant Laxative) insulin lispro 100 unit/mL See Protocol subcut TID blo od 10/23/23 Unknown History subcutaneous pen (Humalog KwikPen sugars (U-100) Insulin) loratadine 10 mg tablet 10 mg PO DAILY allergies 02/06 Unknown History (Allerclear) albuterol sulfate 2.5 mg/3 mL 2.5 mg inhalation BID wh eezing 10/25/23 Unknown History (0.083 %) solution for nebulization ascorbic acid (vitamin C) 500 mg 500 mg PO DAILY suppl ement 03/26/24 Unknown History tablet dextrose 40 % oral gel (Glucose 10 g PO Q15M PRN hypog lycemia 03/26/24 Unknown History Gel) naloxone 0.4 mg/mL injection 0.4 mg IM Q5M PRN opioid reversal 03/26/24 Unknown History syringe ondansetron 4 mg disintegrating 4 mg PO Q4H PRN nausea 03/26/24 Unknown History tablet sodium chloride 0.65 % nasal mist 2 spray intranasal Q 2H PRN dry 03/26/24 Unknown History nasal passages duloxetine 30 mg capsule,delayed 90 mg PO QDAY mood 10/28/24 History release insulin glargine 100 unit/mL 20 unit subcut DAILY diab etes 07/18/24 Unknown History subcutaneous solution (Lantus mellitus type 2 U-100 Insulin) insulin lispro 100 unit/mL See Rx Instructions subcut 07/18/24 Unknown History subcutaneous solution .COMPLEX diabetes metformin 500 mg tablet 1,000 mg PO BID diabetes 10/07 Unknown History fenofibrate 54 mg tablet 54 mg PO QHS cholesterol 09/07 Unknown History nystatin 100,000 unit/gram topical 1 applic topical BI D rednes 08/17/24 Unknown History powder acetaminophen 325 mg capsule 650 mg PO Q6H pain Unknown History acetic acid 0.25 % irrigation 30 ml irrigation BID sup rapubic 10/12/24 Unknown History solution cath artificial 1 drp EACH EYE BID PRN dry e yes 10/12/24 Unknown History tears(egsofju-vucfvkca-xkotodg) 0.1 %-0.3 %-0.2 % eye drops (GenTeal Tears Moderate) glipizide 2.5 mg tablet, extended 2.5 mg PO DAILY diab etes 10/12/24 Unknown History release 24 hr simethicone 80 mg chewable tablet 80 mg PO Q4H PRN gas 10/12/24 Unknown History (Gas Relief (simethicone)) sodium hypochlorite 0.25 % 1 applic topical BID wound 10/12/24 Unknown History solution (Dakin's Solution) guaifenesin 600 mg tablet, 600 mg PO BID 7 days #0 tab s 11/01/24 Unknown Rx extended release 12 hr (Mucinex) atorvastatin 40 mg tablet 40 mg PO DAILY 01/18/25 Unkn own History azithromycin 250 mg tablet 250 mg PO MOWEFR pneumonia 01/18/25 Unknown History cholecalciferol (vitamin D3) 125 125 mcg PO DAILY 10/07 Unknown History mcg (5,000 unit) tablet dulaglutide 4.5 mg/0.5 mL 4.5 mg subcut MO 01/18/25 Un known History subcutaneous pen injector (Trulicity) furosemide 20 mg tablet 20 mg PO QHS 01/18/25 Unknow n History furosemide 40 mg tablet 40 mg PO DAILY 01/18/25 Unkn own History multivitamin-ferrous 1 tab PO DAILY 01/18/25 Unkn own History fumarate-folic acid 18 mg-400 mcg tablet (Tab-A-Milla Multivitamin w-iron) potassium chloride 20 mEq 20 meq PO DAILY 01/18/25 Unk nown History tablet,extended release(part/cryst) morphine 30 mg tablet,extended 30 mg PO Q12H 2 days #4 tabs 01/19/25 Unknown Rx release L.acidophilus-L.bulgar-B.bifid-S.thermoph 1 tab PO YG LY 01/29/25 Unknown History 1 billion cell-250 mg tablet (Probiotic Acidophilus (4 strain)) linezolid 600 mg tablet 600 mg PO BID 01/29/25 Unkno wn History oxycodone 10 mg tablet 10 mg PO Q6H pain 01/29/25 U
--- NOTE | 2025-01-29 10:30 | PCM.HP.STD ---
HPI - General General Date of Admission: 01/29/25 Date of Service: 01/29/25 Chief Complaint: Hypoxia on 15 L, shortness of breath HPI Narrative MELISSA ELIAS, is a 59 M who is brought to ED by EMS for hypoxia, pulse ox 85% on 15 L of oxygen. The patient is very debilitated, BATOOL on BiPAP, paraplegic with no sensation below waist level, has colostomy and stage IV coccygeal ulcer follows wound clinic Dr. Outside Patient stated that he felt short of breath last night and pulse ox was 70% on usual 4 L of oxygen and then he was put on nonrebreather. Patient has URI symptoms and congestion but denies significant cough or sputum production. Denies wheezing. Patient was discharged on 01/19 after PRBC transfusion for severe anemia, acute on chronic blood loss anemia from decubitus ulcer. Eliquis was held and resumed 4 days ago. In ED, he was put on Airvo, hotel or motel receptionist consulted, started on IV antibiotics. 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) culture positive Decubitus ulcer of sacral region, stage 4 Lymphedema BATOOL treated with BiPAP Abscess of back Constipation Pressure ulcer of sacral region Chronic indwelling Campbell catheter Blood loss anemia Clot retention of urine Pressure injury, unstageable, with eschar Bilateral pulmonary embolism Rhabdomyolysis Community acquired pneumonia Hypoglycemia Acute osteomyelitis of spine Former tobacco use Paraplegia Cellulitis of leg without foot, right Anemia BMI greater than 40 Type 2 diabetes mellitus HTN (hypertension) H/o back surgery Home Medications ?Medication ?Instructions ?Recorded ?Last Taken ?Type fluticasone propionate 50 1 spray intranasal DAILY shortness 03/03/20 Unknown History mcg/actuation nasal of breath spray,suspension (Flonase Allergy Relief) apixaban 5 mg tablet (Eliquis) 5 mg PO BID 07/29/23 08/31/23 History methocarbamol 500 mg tablet 1,000 mg PO TID cramps 07/29/23 08/31/23 History polyethylene glycol 3350 17 17 g PO TID constipation 07/29/23 07/29/23 History gram/dose oral powder (ClearLax) pantoprazole 40 mg tablet,delayed 40 mg PO DAILY stomach 08/31/23 08/31/23 History release aluminum-mag hydroxide-simethicone 30 ml PO Q6H PRN PRN Gastric 09/13/23 Unknown Rx 400 mg-400 mg-40 mg/5 mL oral susp Burning #0 mL (Mag-Al Plus Extra Strength) amlodipine 10 mg tablet 10 mg PO DAILY #0 tabs 09/13/23 Unknown Rx carvedilol 12.5 mg tablet 12.5 mg PO BIDCM #0 tabs 09/13/23 Unknown Rx diphenhydramine HCl 25 mg capsule 25 mg PO TID PRN PRN Itching #0 09/13/23 Unknown Rx (Banophen) caps polysaccharide iron complex 150 mg 150 mg PO DAILY supplement 10/15/23 Unknown History iron capsule (Ferrex) sennosides 8.6 mg-docusate sodium 2 tab PO BID Constipation 10/15/23 Unknown History 50 mg tablet (Stool Softener-Stimulant Laxative) insulin lispro 100 unit/mL See Protocol subcut TID blood 10/23/23 Unknown History subcutaneous pen (Humalog KwikPen sugars (U-100) Insulin) loratadine 10 mg tablet 10 mg PO DAILY allergies 10/23/23 Unknown History (Allerclear) albuterol sulfate 2.5 mg/3 mL 2.5 mg inhalation BID wheezing 10/25/23 Unknown History (0.083 %) solution for nebulization ascorbic acid (vitamin C) 500 mg 500 mg PO DAILY supplement 03/26/24 Unknown History tablet dextrose 40 % oral gel (Glucose 10 g PO Q15M PRN hypoglycemia 03/26/24 Unknown History Gel) naloxone 0.4 mg/mL injection 0.4 mg IM Q5M PRN opioid reversal 03/26/24 Unknown History syringe ondansetron 4 mg disintegrating 4 mg PO Q4H PRN nausea 03/26/24 Unknown History tablet sodium chloride 0.65 % nasal mist 2 spray intranasal Q2H PRN dry 03/26/24 Unknown History nasal passages duloxetine 30 mg capsule,delayed 90 mg PO QDAY mood 07/18/24 10/28/24 History release insulin glargine 100 unit/mL 20 unit subcut DAILY diabetes 07/18/24 Unknown History subcutaneous solution (Lantus mellitus type 2 U-100 Insulin) insulin lispro 100 unit/mL See Rx Instructions subcut 07/18/24 Unknown History subcutaneous solution .COMPLEX diabetes metformin 500 mg tablet 1,000 mg PO BID diabetes 07/18/24 Unknown History fenofibrate 54 mg tablet 54 mg PO QHS cholesterol 08/17/24 Unknown History nystatin 100,000 unit/gram topical 1 applic topical BID rednes 08/17/24 Unknown History powder acetaminophen 325 mg capsule 650 mg PO Q6H pain 10/12/24 Unknown History acetic acid 0.25 % irrigation 30 ml irrigation BID suprapubic 10/12/24 Unknown History solution cath artificial 1 drp EACH EYE BID PRN dry eyes 10/12/24 Unknown History tears(cuywbaf-obmrodrl-ykryqhs) 0.1 %-0.3 %-0.2 % eye drops (GenTeal Tears Moderate) glipizide 2.5 mg tablet, extended 2.5 mg PO DAILY diabetes 10/12/24 Unknown History release 24 hr simethicone 80 mg chewable tablet 80 mg PO Q4H PRN gas 10/12/24 Unknown History (Gas Relief (simethicone)) sodium hypochlorite 0.25 % 1 applic topical BID wound 10/12/24 Unknown History solution (Dakin's Solution) guaifenesin 600 mg tablet, 600 mg PO BID 7 days #0 tabs 11/01/24 Unknown Rx extended release 12 hr (Mucinex) atorvastatin 40 mg tablet 40 mg PO DAILY 01/18/25 Unknown History azithromycin 250 mg tablet 250 mg PO MOWEFR pneumonia 01/18/25 Unknown History cholecalciferol (vitamin D3) 125 125 mcg PO DAILY 01/18/25 Unknown History mcg (5,000 unit) tablet dulaglutide 4.5 mg/0.5 mL 4.5 mg subcut MO 01/18/25 Unknown History subcutaneous pen injector (Trulicity) furosemide 20 mg tablet 20 mg PO QHS 01/18/25 Unknown History furosemide 40 mg tablet 40 mg PO DAILY 01/18/25 Unknown History multivitamin-ferrous 1 tab PO DAILY 01/18/25 Unknown History fumarate-folic acid 18 mg-400 mcg tablet (Tab-A-Milla Multivitamin w-iron) potassium chloride 20 mEq 20 meq PO DAILY 01/18/25 Unknown History tablet,extended release(part/cryst) morphine 30 mg tablet,extended 30 mg PO Q12H 2 days #4 tabs 01/19/25 Unknown Rx release L.acidophilus-L.bulgar-B.bifid-S.thermoph 1 tab PO DAILY 01/29/25 Unknown History 1 billion cell-250 mg tablet (Probiotic Acidophilus (4 strain)) linezolid 600 mg tablet 600 mg PO BID 01/29/25 Unknown History oxycodone 10 mg tablet 10 mg PO Q6H pain 01/29/25 Unknown History Allergy/AdvReac Type Severity Reaction Status Date / Time adhesive tape AdvReac Severe rash and Verified 01/29/25 08:05 rapid skin breakdown Family History Mother Hypertension Hypotension Diabetes Arthritis Father Hypertension Hypotension Heart disease Status post double vessel coronary artery bypass angina Arthritis Grandfather Prostate cancer Grandmother Uterine cancer Surgical History History of hip replacement Colostomy status Hx of spinal surgery H/O sinus surgery Social History housing: group home current occupational status: employed and retired Smoking Status: Former smoker alcohol intake: never substance use type: does not use do you feel safe at home: Yes ROS ROS Narrative Constitutional: Reports chronic fatigue and weakness. No fever. HEENT: Reports systems reviewed and no addt'l complaints, except as documented Respiratory/Chest: As described in HPI. No wheezing CVS: No chest pain but mild chest congestion Gastrointestinal: Colostomy with hernia denies coffee ground emesis, hematemesis or vomiting Genitourinary: Denies burning urination or new urinary tract symptoms Musculoskeletal: Denies acute joint pain or limited range of motion. No acute injury Neurologic: Paraplegia. Denies seizure-like symptoms. skin: Large decubitus ulcer at the back Endocrinology: Reports systems reviewed and no addt'l complaints, except as documented Hematologic/Lymphatic: Reports systems reviewed and no addt'l complaints, except as documented Rest 14 ROS are negative except as mentioned in HPI Vital Signs Vital Signs Vital Signs: 01/29/25 07:54 01/29/25 08:08 01/29/25 08:09 Temperature 98.0 F 98.0 F Temperature Source Oral Temporal Pulse Rate 107 H 101 H Respiratory Rate 20 H 18 Respiratory Effort Short of Breath Labored Respiratory Depth Normal Respiratory Pattern Normal Blood Pressure 151/73 H 152/72 H Blood Pressure Mean 99 98 Pulse Ox 91 95 Oxygen Delivery Method Non-Rebreather Non-Rebreather Oxygen Flow Rate (L/min) 15 15 Fraction of Inspired Oxygen (FIO2) 01/29/25 08:13 01/29/25 08:20 01/29/25 08:55 Temperature 98.3 F Temperature Source Oral Pulse Rate 99 96 Respiratory Rate 14 12 Respiratory Effort Respiratory Depth Respiratory Pattern Blood Pressure 118/56 L Blood Pressure Mean 76 Pulse Ox 94 92 94 Oxygen Delivery Method Non-Rebreather Airvo Oxygen Flow Rate (L/min) 15 55 Fraction of Inspired Oxygen (FIO2) 65 65 01/29/25 10:00 Temperature 98.2 F Temperature Source Oral Pulse Rate 93 Respiratory Rate 18 Respiratory Effort Respiratory Depth Respiratory Pattern Blood Pressure 153/74 H Blood Pressure Mean 100 Pulse Ox 93 Oxygen Delivery Method Airvo Oxygen Flow Rate (L/min) Fraction of Inspired Oxygen (FIO2) Weight Weight: 325 lb 9.964 oz Body Mass Index (BMI) 51.0 Physical Exam Narrative General: Alert, Oriented x3, Cooperative. BMI 51.0 kg/m? HEENT: Atraumatic, PERRLA, EOMI, Normocephalic. Oral: No Gingival or Mucosal Lesions/ Ulcerations Neck: Thick and wide neck. Supple, JVD could not be appreciated. negative Carotid Bruits Chest wall/Lungs: Air entry diminished in bilateral lung bases. No crepitation/rhonchi Cardiovascular: Mild sinus tachycardia, soft, no murmur gallop or rub Abdomen: Colostomy with everted bowel. Bowel sounds Present, Soft, Non Tender, liquid stool present in bag : Chronic indwelling catheter No renal angle tenderness. No suprapubic tenderness. Extremities: Mild dependent edema , Capillary Refill Less than 3 Seconds Skin: Large decubitus ulcer lower back, sacrococcygeal region. Musculoskeletal: Paraplegic with contracture at hip and knee joints. No Tenderness to Palpation of Joints or Extremities Neurological: No sensation below waist level. Cranial nerves were intact. Psych/Mental Status: Flat affect Results Lab / Micro Data 01/29/25 08:05 01/29/25 08:05 Labs: Laboratory Results - last 24 hr 01/29/25 08:05: WBC 11.2 H, RBC 3.45 L, Hgb 7.0 L, Hct 26.2 L, MCV 75.9 L, MCH 20.3 L, MCHC 26.7 L, RDW Std Deviation 54.1 H, RDW Coeff of Mary 20.1 H, Plt Count 487 H, MPV 9.3, Immature Gran % (Auto) 0.500, Neut % (Auto) 73.0 H, Lymph % (Auto) 17.6 L, [place] % (Auto) 6.7, Eos % (Auto) 1.8, Baso % (Auto) 0.4, Absolute Neuts (auto) 8.2 H, Absolute Lymphs (auto) 1.97, Nucleated RBC % 0, Polychromasia RARE, Anisocytosis 2+, Sodium 135, Potassium 4.9, Chloride 93 L, Carbon Dioxide 31.0, Anion Gap 12, BUN 18, Creatinine 0.79, Estim Creat Clear Calc 144.08, Est GFR (MDRD) Non-Af 103, BUN/Creatinine Ratio 23.1 H, Glucose 208 H, Lactic Acid 1.5, Calcium 8.8, Troponin T High Sens 216 H* D, NT pro BNP II 370 Micro: Microbiology 01/29/25 08:05 Mucosa - Nose SARS-CoV-2, Influenza & RSV (PCR) - Final ABG Data ABG results: ABG 01/29/25 08:53 Specimen Type ART Sample Site R Brach pH 7.37 Bicarbonate Actual 39.1 H Total CO2 41 Base Excess 14 H O2 Saturation 91 L O2 % 65.0 ABG pCO2 68.5 H* ABG pO2 66 L O2 Delivery Device Airvo Vent Mode Not entered Crit Call To/Read Back Yes Blood Gas Notified Whom Dr. Thompson Blood Gas Notified Time 904 Clinical Comments 55lpm Imaging Radiology Impression Chest X-Ray 01/29/25 08:30 IMPRESSION: Acute kyphosis above the patient's thoracolumbar fusion. There is associated hypoventilation with atelectasis in the lower lungs. A significant portion of the atelectasis is likely related to body habitus and positioning. Reading Location: [id number] Assessment & Plan Assessment/Plan (1) Acute respiratory failure with hypoxia and hypercapnia: PLAN: Plan This is 59-year-old gentleman is being admitted for hypoxia and shortness of breath for 1 day 1. Acute on chronic hypoxic and hypercarbic respiratory failure possibly due to CHF exacerbation/pneumonia: Patient is being admitted in ICU. Currently on Airvo. Chest x-ray daily reviewed and shows bilateral pleural effusion right more than left and congestion. It is reported as hypoventilation with atelectasis in the lower lungs. There is suspicion of pneumonia too. Blackener consulted. Patient on Airvo. 2. Suspicion of pneumonia: Chest x-ray suboptimal quality because of body habitus. Pneumonia workup ordered. Patient got 1 dose of IV ceftriaxone and Zithromax. Antibiotic broadened to IV vancomycin and Zosyn. 3. CHF exacerbation: Started on IV furosemide 40 mg IV twice daily. Echo from 10/13/2024 demonstrated EF of 55 to 60%, technically difficult patient is on furosemide and currently remains compensated 4. Stage IV chronic decubitus ulcer ? Patient is managed at the wound care center plan . He follows wound center Dr. Christian. Wound care consulted. As per ER physician wound is healing. 5 History of L1 injury with paraplegic status complicated by chronic decubitus ulcers, Chronic Indwelling Campbell with Chronic pain syndrome: Nursing care, frequent change of positioning, dressing change. PT OT and case management consulted. 6 Chronic bilateral pulmonary embolism: Apixaban recently resumed 4 days ago. During previous admission apixaban held because of acute on chronic severe blood loss anemia. 7 Diabetes mellitus type 2: Glucose is 218 BMP. Accu-Chek before meals and at bedtime with Humalog sliding scale coverage and hypoglycemia protocol. 1800 ADA diet. Home insulin regimen continued 8 Morbid obesity: BMI 51.0 kg/m?. No significant change compared to previous hospital admission. 9. Obstructive sleep apnea ? BiPAP therapy at night 10. Essential hypertension ? Patient blood pressure is in normal range. DVT prophylaxis ? Patient on apixaban Living will/advanced directive/end of life care: Patient does not have living will or advanced directive. He does not religated power of ip attorney for health. His sister is next of kin. After discussion of benefits/risks procedures involved with full code, DNR CC arrest and DNR CC, the patient opted for full code. Patient does want artificial life support including intubation, tube feed, ventilator and/chest compression, central venous catheter, vasopressor and DC shock if needed Total time spent in [place] encounter in discussion of advanced directive 17 minutes. Charges/Coding Visit Charges Inpatient E&M: 10910 Disch Hosp >30min
[2025-01-29 10:42] LABS: Troponin T High Sens 2 HR 205 ng/L (<=22)
[2025-01-29] MEDS: Azithromycin 500 MG in 0.9% Normal Saline (250mL Bag) 250 ML 250 MG IV (11:35)
--- NOTE | 2025-01-29 12:01 | EX.PCM.CONCC ---
Assessment & Plan Assessment/Plan (1) Acute on chronic respiratory failure with hypoxia and hypercapnia: PLAN: Plan RECOMMENDATIONS: 1. Continue to wean supplemental oxygen to maintain saturation is 88 to 92%. 2. BiPAP therapy with naps and nightly. 3. Continue empiric antimicrobials. 4. Continue to hold Eliquis for now. 5. Continue to monitor H&H. Transfuse if hemoglobin drops below 7 g/dL. Send type and screen. 6. Wound care consultation given decubitus ulcer. 7. Continue diuretics, as tolerated by hemodynamics and renal function. IMPRESSIONS: 1. Acute on chronic combined respiratory failure Unclear precipitating etiology. The chest x-ray was underinflated on presentation. However, no discernible infiltrate or consolidation was noted. An underlying viral etiology is certainly a possibility. Respiratory viral panel is currently pending. The patient reported that he does have a history of pulmonary embolism over 1 year ago. However, his anticoagulation will need to be placed on hold secondary to his presenting anemia. If the patient remains hypoxemic, I would have a low threshold for repeating a CTA chest with consideration for lower extremity Dopplers and IVC filter, if DVT is confirmed. In the interim, continue empiric antibiotics. Wean supplemental oxygen to maintain saturations 88 to 92%. In light of the patient's sleep apnea and alveolar hypoventilation, empiric BiPAP will need to be initiated with naps and nightly. 2. Acute on chronic anemia in the setting of bleeding decubitus ulcer The patient was recently hospitalized with anemia related to a bleeding decubitus ulcer. Will plan to send a type and screen, with a goal to transfuse blood products to achieve and maintain hemoglobin at or above 7 g/dL. Wound care consultation will be obtained. 3. Obstructive sleep apnea/alveolar hypoventilation secondary to obesity Continue BiPAP support with naps and nightly. 4. History of paraplegia related to L1 injury/chronic pain syndrome/morbid obesity Complicates care, management, recovery and prognosis. Continue supportive measures as noted above. CODE STATUS: Full code (confirmed with patient) This note was generated with [employer] software. It may contain incorrect words, spelling, and punctuation that were not noted in checking the note before signing. HPI Consult Data Date of Consult: 01/29/25 HPI Narrative Reason for Consultation: Respiratory failure HPI Narrative: The patient is a 59-year-old male, with a history as outlined below, who presented to the emergency department on January 29 with worsening shortness of breath and hypoxemia. The patient was just recently admitted and subsequently discharged on January 19 after presenting with acute on chronic blood loss anemia from a decubitus ulcer. The patient has a known history of chronic hypoxemic respiratory failure with a baseline requirement of 4 L/min along with obstructive sleep apnea on BiPAP, history of paraplegia related to L1 injury, chronic pain syndrome, morbid obesity, alveolar hypoventilation secondary to obesity and chronic decubitus ulcer. The patient did report associated postnasal drip and sinus congestion, but denied any overt shortness of breath or productive cough. The patient did report that he was previously diagnosed with pulmonary embolism over 1 year ago and was on Eliquis for a period of time. Although his systemic anticoagulation was held during his prior hospitalization, it appears to have been restarted after his discharge. On presentation to the emergency department, the patient was noted to be afebrile and hemodynamically stable. The patient was initially placed on a nonrebreather mask. Laboratory evaluation revealed a white blood cell count of 11,000. Hemoglobin was noted to be 7.0 g/dL with a platelet count of 487,000. ABG demonstrated a pH of 7.37 with a pCO2 of 68 and pO2 of 66. Chemistry profile was unremarkable. Lactate was within normal limits. Troponin was elevated at 216. Chest x-ray demonstrated hypoinflated lungs with suspected bibasilar atelectasis. The patient was ultimately placed on heated high flow oxygen and empiric antimicrobials. He was admitted to the medical intensive care unit for further management. [facility] Medical History MDR Acinetobacter baumannii infection VRE (vancomycin resistant enterococcus) culture positive Decubitus ulcer of sacral region, stage 4 Lymphedema BATOOL treated with BiPAP Abscess of back Constipation Pressure ulcer of sacral region Chronic indwelling Campbell catheter Blood loss anemia Clot retention of urine Pressure injury, unstageable, with eschar Bilateral pulmonary embolism Rhabdomyolysis Community acquired pneumonia Hypoglycemia Acute osteomyelitis of spine Former tobacco use Paraplegia Cellulitis of leg without foot, right Anemia BMI greater than 40 Type 2 diabetes mellitus HTN (hypertension) H/o back surgery Home Medications ?Medication ?Instructions ?Recorded ?Last Taken ?Type fluticasone propionate 50 1 spray intranasal DAILY shortness 03/03/20 Unknown History mcg/actuation nasal of breath spray,suspension (Flonase Allergy Relief) apixaban 5 mg tablet (Eliquis) 5 mg PO BID 07/29/23 08/31/23 History methocarbamol 500 mg tablet 1,000 mg PO TID cramps 07/29/23 08/31/23 History polyethylene glycol 3350 17 17 g PO TID constipation 07/29/23 07/29/23 History gram/dose oral powder (ClearLax) pantoprazole 40 mg tablet,delayed 40 mg PO DAILY stomach 08/31/23 08/31/23 History release aluminum-mag hydroxide-simethicone 30 ml PO Q6H PRN PRN Gastric 09/13/23 Unknown Rx 400 mg-400 mg-40 mg/5 mL oral susp Burning #0 mL (Mag-Al Plus Extra Strength) amlodipine 10 mg tablet 10 mg PO DAILY #0 tabs 09/13/23 Unknown Rx carvedilol 12.5 mg tablet 12.5 mg PO BIDCM #0 tabs 09/13/23 Unknown Rx diphenhydramine HCl 25 mg capsule 25 mg PO TID PRN PRN Itching #0 09/13/23 Unknown Rx (Banophen) caps polysaccharide iron complex 150 mg 150 mg PO DAILY supplement 10/15/23 Unknown History iron capsule (Ferrex) sennosides 8.6 mg-docusate sodium 2 tab PO BID Constipation 10/15/23 Unknown History 50 mg tablet (Stool Softener-Stimulant Laxative) insulin lispro 100 unit/mL See Protocol subcut TID blood 10/23/23 Unknown History subcutaneous pen (Humalog KwikPen sugars (U-100) Insulin) loratadine 10 mg tablet 10 mg PO DAILY allergies 10/23/23 Unknown History (Allerclear) albuterol sulfate 2.5 mg/3 mL 2.5 mg inhalation BID wheezing 10/25/23 Unknown History (0.083 %) solution for nebulization ascorbic acid (vitamin C) 500 mg 500 mg PO DAILY supplement 03/26/24 Unknown History tablet dextrose 40 % oral gel (Glucose 10 g PO Q15M PRN hypoglycemia 03/26/24 Unknown History Gel) naloxone 0.4 mg/mL injection 0.4 mg IM Q5M PRN opioid reversal 03/26/24 Unknown History syringe ondansetron 4 mg disintegrating 4 mg PO Q4H PRN nausea 03/26/24 Unknown History tablet sodium chloride 0.65 % nasal mist 2 spray intranasal Q2H PRN dry 03/26/24 Unknown History nasal passages duloxetine 30 mg capsule,delayed 90 mg PO QDAY mood 07/18/24 10/28/24 History release insulin glargine 100 unit/mL 20 unit subcut DAILY diabetes 07/18/24 Unknown History subcutaneous solution (Lantus mellitus type 2 U-100 Insulin) insulin lispro 100 unit/mL See Rx Instructions subcut 07/18/24 Unknown History subcutaneous solution .COMPLEX diabetes metformin 500 mg tablet 1,000 mg PO BID diabetes 07/18/24 Unknown History fenofibrate 54 mg tablet 54 mg PO QHS cholesterol 08/17/24 Unknown History nystatin 100,000 unit/gram topical 1 applic topical BID rednes 08/17/24 Unknown History powder acetaminophen 325 mg capsule 650 mg PO Q6H pain 10/12/24 Unknown History acetic acid 0.25 % irrigation 30 ml irrigation BID suprapubic 10/12/24 Unknown History solution cath artificial 1 drp EACH EYE BID PRN dry eyes 10/12/24 Unknown History tears(mmtmoro-yhbkvtyl-jebplkz) 0.1 %-0.3 %-0.2 % eye drops (GenTeal Tears Moderate) glipizide 2.5 mg tablet, extended 2.5 mg PO DAILY diabetes 10/12/24 Unknown History release 24 hr simethicone 80 mg chewable tablet 80 mg PO Q4H PRN gas 10/12/24 Unknown History (Gas Relief (simethicone)) sodium hypochlorite 0.25 % 1 applic topical BID wound 10/12/24 Unknown History solution (Dakin's Solution) guaifenesin 600 mg tablet, 600 mg PO BID 7 days #0 tabs 11/01/24 Unknown Rx extended release 12 hr (Mucinex) atorvastatin 40 mg tablet 40 mg PO DAILY 01/18/25 Unknown History azithromycin 250 mg tablet 250 mg PO MOWEFR pneumonia 01/18/25 Unknown History cholecalciferol (vitamin D3) 125 125 mcg PO DAILY 01/18/25 Unknown History mcg (5,000 unit) tablet dulaglutide 4.5 mg/0.5 mL 4.5 mg subcut MO 01/18/25 Unknown History subcutaneous pen injector (Trulicity) furosemide 20 mg tablet 20 mg PO QHS 01/18/25 Unknown History furosemide 40 mg tablet 40 mg PO DAILY 01/18/25 Unknown History multivitamin-ferrous 1 tab PO DAILY 01/18/25 Unknown History fumarate-folic acid 18 mg-400 mcg tablet (Tab-A-Milla Multivitamin w-iron) potassium chloride 20 mEq 20 meq PO DAILY 01/18/25 Unknown History tablet,extended release(part/cryst) morphine 30 mg tablet,extended 30 mg PO Q12H 2 days #4 tabs 01/19/25 Unknown Rx release L.acidophilus-L.bulgar-B.bifid-S.thermoph 1 tab PO DAILY 01/29/25 Unknown History 1 billion cell-250 mg tablet (Probiotic Acidophilus (4 strain)) linezolid 600 mg tablet 600 mg PO BID 01/29/25 Unknown History oxycodone 10 mg tablet 10 mg PO Q6H pain 01/29/25 Unknown History Allergy/AdvReac Type Severity Reaction Status Date / Time adhesive tape AdvReac Severe rash and Verified 01/29/25 08:05 rapid skin breakdown Family History Mother Hypertension Hypotension Diabetes Arthritis Father Hypertension Hypotension Heart disease Status post double vessel coronary artery bypass angina Arthritis Grandfather Prostate cancer Grandmother Uterine cancer Surgical History History of hip replacement Colostomy status Hx of spinal surgery H/O sinus surgery Social History housing: [facility] current occupational status: employed and retired Smoking Status: Former smoker alcohol intake: never substance use type: does not use do you feel safe at home: Yes ROS ROS Narrative 10 systems were reviewed with pertinent positives as noted in the HPI above. Physical Exam Const alert, oriented x3 and no apparent distress Constitutional Narrative: Morbidly obese. General Appearance: cooperative HEENT normocephalic, head/scalp atraumatic and moist oral mucous membranes Eyes PERRL, EOMs intact bilaterally and conjunctivae normal Neck supple General: trachea midline Chest inspection of chest normal Resp Auscultation: diminished lung sounds; Negative for rales, rhonchi or wheezes Cardio regular rate and regular rhythm GI soft to palpation and non-tender Extremity no clubbing, cyanosis or edema Skin Skin Narrative: Decubitus ulcer noted on presentation. Neuro CN's II-XII intact bilaterally Psych cooperative and affect normal Lab / Micro Data 01/29/25 08:05 01/29/25 08:05 Labs: Laboratory Results - last 24 hr 01/29/25 08:05: WBC 11.2 H, RBC 3.45 L, Hgb 7.0 L, Hct 26.2 L, MCV 75.9 L, MCH 20.3 L, MCHC 26.7 L, RDW Std Deviation 54.1 H, RDW Coeff of Mary 20.1 H, Plt Count 487 H, MPV 9.3, Immature Gran % (Auto) 0.500, Neut % (Auto) 73.0 H, Lymph % (Auto) 17.6 L, [place] % (Auto) 6.7, Eos % (Auto) 1.8, Baso % (Auto) 0.4, Absolute Neuts (auto) 8.2 H, Absolute Lymphs (auto) 1.97, Nucleated RBC % 0, Polychromasia RARE, Anisocytosis 2+, Sodium 135, Potassium 4.9, Chloride 93 L, Carbon Dioxide 31.0, Anion Gap 12, BUN 18, Creatinine 0.79, Estim Creat Clear Calc 144.08, Est GFR (MDRD) Non-Af 103, BUN/Creatinine Ratio 23.1 H, Glucose 208 H, Lactic Acid 1.5, Calcium 8.8, Troponin T High Sens 216 H* D, NT pro BNP II 370 01/29/25 10:15: Troponin T Hi Sens 2 Hr 205 H* Micro: Microbiology 01/29/25 08:05 Mucosa - Nose SARS-CoV-2, Influenza & RSV (PCR) - Final ABG Data ABG results: ABG 01/29/25 08:53 Specimen Type ART Sample Site R Brach pH 7.37 Bicarbonate Actual 39.1 H Total CO2 41 Base Excess 14 H O2 Saturation 91 L O2 % 65.0 ABG pCO2 68.5 H* ABG pO2 66 L O2 Delivery Device Airvo Vent Mode Not entered Crit Call To/Read Back Yes Blood Gas Notified Whom Dr. Thompson Blood Gas Notified Time 0905 Clinical Comments 55lpm Imaging Radiology Impression Chest X-Ray 01/29/25 08:30 IMPRESSION: Acute kyphosis above the patient's thoracolumbar fusion. There is associated hypoventilation with atelectasis in the lower lungs. A significant portion of the atelectasis is likely related to body habitus and positioning. Reading Location: [id number] Charges/Coding Visit Charges Inpatient E&M: 55323 Init Hosp L3
[2025-01-29 12:42] LABS: Troponin T High Sens 4 HR 182 ng/L (<=22)
[2025-01-29 12:50] LABS: Magnesium 2.0 mg/dL (1.5-2.2)
[2025-01-29] MEDS: Vancomycin HCl 2,000 MG in 0.9% Normal Saline (500mL Bag) 500 ML 250 MG IV (13:42)
[2025-01-29] MEDS: 0.9% Normal Saline (250mL Bag) 250 ML 15 ML IV (13:42)
[2025-01-29] MEDS: 0.9% Saline Lock 10 ML Syringe IV ×4 (13:47→22:23)
--- NOTE | 2025-01-29 14:04 | PCM.RX.CS ---
Consult Antibiotic Management Pharmacy has been consulted to manage selected antibiotic: Vancomycin Type of Intervention Type of Consult: New start Suspected Infection Suspected Infection: Pneumonia Prior Doses of Antibiotics Prior Doses of Antibiotics Received/Current Regimen: Vancomycin 2000 mg IV x 1 given 01/29/25 @ 1342 Labs Labs: Sodium 135 mmol/L (133-145) 01/29/25 08:05 Potassium 4.9 mmol/L (3.3-5.1) 01/29/25 08:05 Chloride 93 mmol/L (98-108) L 01/29/25 08:05 Carbon Dioxide 31.0 mmol/L (21.0-32.0) 01/29/25 08:05 Anion Gap 12 (5-15) 01/29/25 08:05 BUN 18 mg/dL (4-19) 01/29/25 08:05 Creatinine 0.79 mg/dL (0.70-1.20) 01/29/25 08:05 Est GFR (MDRD) Non-Af 103 (>60) 01/29/25 08:05 BUN/Creatinine Ratio 23.1 RATIO (10-20) H 01/29/25 08:05 Glucose 208 mg/dL (70-99) H 01/29/25 08:05 Microbiology Microbiology: Microbiology 01/29/25 13:25 Urine Catheter - Campbell Legionella Antigen - Final 01/29/25 13:25 Urine Catheter - Campbell Streptococcus pneumoniae Antigen (M - Final 01/29/25 08:05 Mucosa - Nose SARS-CoV-2, Influenza & RSV (PCR) - Final Dosing Weight Weight used for dosin kg Estimated Creatinine Clearance Estimated Creatinine Clearance: ~ 144 Goal Trough Goal Trough: 15-20 mcg/mL Pharmacy Plan for Drug Dosing Pharmacy Plan for Drug Dosing: Vancomycin 2000 mg IV x 1 followed by 1500 mg Q8H Pharmacy Service will continue to monitor and adjust dosing as required. Follow-Up Labs Follow-Up Labs: Trough: Vancomycin Date/Time Labs Ordered Labs to be done on [date and time ordered]: 01/30/25 @ 1300
[2025-01-29 14:47] LABS: Mucous, Urine 0 SEEN /hpf (<or=2+); Red Blood Cells-Urine 0 SEEN /hpf (0-5); Squamous Epithelial Cells - UA 0 SEEN /hpf (0-5)
[2025-01-29 14:49] LABS: Color, Urine Yellow (Yellow); Glucose, Dipstick Normal (Normal); Ketone-Dipstick Negative (Negative); Leukocyte Esterase-Dipstick 500 /ul (Negative); Nitrite-Dipstick Negative (Negative); Occult Blood-Urine 50 /ul (Negative); Protein-Dipstick 30 mg/dl (Negative); Specific Gravity, Urine 1.010 (1.002-1.030); Urine Bilirubin Dipstick Negative (Negative)
[2025-01-29] MEDS: Piperacil/Tazobactam 3.375 GM in 0.9% Normal Saline (50mL MB+) 50 ML IV ×2 (14:54→22:23)
--- NOTE | 2025-01-29 15:41 | WOUNDNOTE ---
wound photo: left lateral lower leg
--- NOTE | 2025-01-29 15:42 | WOUNDNOTE ---
wound photo: left ischium/sacrum
--- NOTE | 2025-01-29 15:44 | WOUNDNOTE ---
wound photo: right ischium/sacrum
[2025-01-29] MEDS: Vancomycin HCl 1,500 MG in 0.9% Normal Saline (500mL Bag) 500 ML 250 MG IV (20:06)
[2025-01-29] MEDS: Polyethylene Glycol 3350 17 GM PACKET PO (22:23)
[2025-01-29] MEDS: DAKIN'S SOL HALF STRENGTH (=0.25%) TOPICAL (22:24)
[2025-01-30] VITALS (42 sets, daily range): BP systolic 113–151; BP diastolic 49–84; PULSE 96–120; RESP 12–28; TEMP 2.4–36.7; O2SAT 45–99; BMI 47.1
[2025-01-30 04:45] LABS: Anion Gap 11 (5-15); BUN 14 mg/dL (4-19); BUN/Creat Ratio 19.2 RATIO (10-20); Calcium,Total 8.5 mg/dL (7.6-11.0); Carbon Dioxide 31.7 mmol/L (21.0-32.0); Chloride 93 mmol/L (98-108); Estimated Creatinine Clearance 158.45 ml/min (50-250); Glucose 198 mg/dL (70-99); Potassium 4.1 mmol/L (3.3-5.1)
[2025-01-30] MEDS: Vancomycin HCl 1,500 MG in 0.9% Normal Saline (500mL Bag) 500 ML 250 MG IV (04:53)
[2025-01-30] MEDS: 0.9% Saline Lock 10 ML Syringe IV ×9 (04:54→23:06)
[2025-01-30] MEDS: Polyethylene Glycol 3350 17 GM PACKET PO ×3 (05:06→21:23)
[2025-01-30] MEDS: Piperacil/Tazobactam 3.375 GM in 0.9% Normal Saline (50mL MB+) 50 ML IV ×3 (05:06→21:23)
[2025-01-30 05:53] LABS: Differential Indicated SCAN CRITERIA MET; Hematocrit 25.4 % (40-54); Hemoglobin 6.9 g/dL (13.0-16.5); Immature Granulocytes Count 0.050 X10^3/uL (0.0-0.0); Mean Corp Hgb Conc 27.2 g/dL (32-36); Mean Corpuscular Volume 74.9 fL (80-94); Mean Platelet Vol. 8.9 fl (6.2-12.0); Platelet Count 426 K/mm3 (150-450); RBC Distribution Width CV 54.4 % (11.6-14.6); RBC Distribution Width SD 20.3 fl (35.1-43.9); Red Blood Count 3.39 M/mm3 (4.6-6.2); White Blood Count 9.1 K/mm3 (4.4-11.0)
[2025-01-30 05:54] LABS: Anisocytosis 2+; Differential Comment SCANNED
--- NOTE | 2025-01-30 06:38 | PCM.HOSP.N ---
Hospitalist Note Hgb 6.9, 2 u PRBC ordered and repeat HH 1 hour following completion.
--- NOTE | 2025-01-30 07:27 | PCM.PN.INT ---
Assessment & Plan Assessment/Plan (1) Acute on chronic respiratory failure with hypoxia and hypercapnia: PLAN: Plan RECOMMENDATIONS: 1. Continue to wean supplemental oxygen to maintain saturation is 88 to 92%. 2. BiPAP therapy with naps and nightly. 3. Obtain CTA chest and lower extremity Dopplers. 4. Continue empiric antimicrobials. 5. Continue to hold Eliquis for now. 6. Transfuse blood products as ordered. Check H&H posttransfusion. 7. Continue local wound care, given decubitus ulcer on presentation. 8. Continue diuretics, as tolerated by hemodynamics and renal function. IMPRESSIONS: 1. Acute on chronic combined respiratory failure Appears to be secondary to dense lower lobe consolidation noted on CT imaging of the chest. There was no evidence of pulmonary embolism. The patient does have a baseline oxygen requirement of 4 L/min with questionable compliance with PAP therapy. For now, the patient will be continued on heated high flow oxygen with a goal to maintain saturations 88 to 92%. Will plan to continue empiric antimicrobials along with scheduled diuretics, as tolerated by hemodynamics and renal function. 2. Acute on chronic anemia in the setting of bleeding decubitus ulcer The patient was recently hospitalized with anemia related to a bleeding decubitus ulcer. Given that the patient's hemoglobin is now below 7 g/dL, we will transfuse blood products as ordered. Check H&H posttransfusion. 3. Obstructive sleep apnea/alveolar hypoventilation secondary to obesity Continue BiPAP support with naps and nightly. 4. History of paraplegia related to L1 injury/chronic pain syndrome/morbid obesity Complicates care, management, recovery and prognosis. Continue supportive measures as noted above. CODE STATUS: Full code (confirmed with patient) This note was generated with [employer] dictation software. It may contain incorrect words, spelling, and punctuation that were not noted in checking the note before signing. Subjective Subjective The patient was seen and examined at the bedside this morning. Events from the last 24 hours have been reviewed. The patient is currently afebrile, hemodynamically stable and maintaining appropriate oxygen saturations on heated high flow with an FiO2 requirement of 70%. The patient only wore his BiPAP for a couple of hours overnight. He reports a great deal of back pain this morning and has yet to receive his pain medications. The patient is currently documented to be overall net -4 L for the hospitalization. White blood cell count is normal. Hemoglobin has dropped to 6.9 g/dL. Platelet count is within normal limits. Chemistry profile was unremarkable. Objective Data Objective Data The patient's most recent lab work, culture data and imaging studies have all been personally reviewed. Wound culture is currently demonstrating growth of Staphylococcus aureus. Vital Signs: Vital Signs Temp Pulse Resp BP Pulse Ox O2 Del Method O2 Flow Rate 96.4 F L 103 H 18 113/84 H 91 Airvo 60 01/30/25 06:51 01/30/25 07:04 01/30/25 07:04 01/30/25 07:00 01/30/25 07:04 01/30/25 07:00 01/30/25 07:00 FiO2 60 01/30/25 07:04 Oxygen Flow Rate (L/min) 60 Oxygen Delivery Method Airvo Weight: 319 lb 3.669 oz Body Mass Index (BMI) 47.1 Intake & Output: Intake and Output for Last 24 Hours 01/28/25 01/29/25 01/30/25 23:59 23:59 23:59 Intake Total 2163.75 / 2163.75 603.33 / 603.33 Output Total 5700 / 6450 1600 / 1600 Balance -3536.25 / -4286.25 -996.67 / -996.67 Lab / Micro Data Attestation: I reviewed the patient's lab results. 01/30/25 03:45 01/30/25 03:45 Labs: Laboratory Results - last 24 hr 01/29/25 08:05: WBC 11.2 H, RBC 3.45 L, Hgb 7.0 L, Hct 26.2 L, MCV 75.9 L, MCH 20.3 L, MCHC 26.7 L, RDW Std Deviation 54.1 H, RDW Coeff of Mary 20.1 H, Plt Count 487 H, MPV 9.3, Immature Gran % (Auto) 0.500, Neut % (Auto) 73.0 H, Lymph % (Auto) 17.6 L, [place] % (Auto) 6.7, Eos % (Auto) 1.8, Baso % (Auto) 0.4, Absolute Neuts (auto) 8.2 H, Absolute Lymphs (auto) 1.97, Nucleated RBC % 0, Polychromasia RARE, Anisocytosis 2+, Sodium 135, Potassium 4.9, Chloride 93 L, Carbon Dioxide 31.0, Anion Gap 12, BUN 18, Creatinine 0.79, Estim Creat Clear Calc 144.08, Est GFR (MDRD) Non-Af 103, BUN/Creatinine Ratio 23.1 H, Glucose 208 H, Lactic Acid 1.5, Calcium 8.8, Troponin T High Sens 216 H* D, NT pro BNP II 370 01/29/25 10:15: Magnesium 2.0, Troponin T Hi Sens 2 Hr 205 H* 01/29/25 12:10: Troponin T Hi Sens 4Hr 182 H* 01/29/25 13:25: Urine Color Yellow, Urine Clarity Sl. Cloudy, Urine pH 5.0, Ur Specific [place] 1.010, Urine Protein 30 H, Urine Glucose (UA) Normal, Urine Ketones Negative, Urine Occult Blood 50 H, Urine Nitrite Negative, Urine Bilirubin Negative, Urine Urobilinogen Normal, Ur Leukocyte Esterase 500 H, Urine RBC 0 SEEN, Urine WBC 25-50 SEEN, Ur Squamous Epith Cells 0 SEEN, Urine Bacteria 1+, Urine Mucus 0 SEEN 01/29/25 13:46: Blood Type A POSITIVE, Antibody Screen NEGATIVE, Crossmatch See Detail 01/30/25 01:30: POC Glucose 200 H 01/30/25 03:45: WBC 9.1, RBC 3.39 L, Hgb 6.9 L, Hct 25.4 L, MCV 74.9 L, MCH 20.4 L, MCHC 27.2 L, RDW Std Deviation 20.3 L, RDW Coeff of Mary 54.4 H, Plt Count 426, MPV 8.9, Immature Gran % (Auto) 0.500, Neut % (Auto) 81.0 H, Lymph % (Auto) 9.3 L, [place] % (Auto) 6.2, Eos % (Auto) 2.6, Baso % (Auto) 0.4, Absolute Neuts (auto) 7.4, Absolute Lymphs (auto) 0.85, Differential Comment SCANNED, Anisocytosis 2+, Sodium 136, Potassium 4.1, Chloride 93 L, Carbon Dioxide 31.7, Anion Gap 11, BUN 14, Creatinine 0.73, Estim Creat Clear Calc 158.45, Est GFR (MDRD) Non-Af Not Reportable, BUN/Creatinine Ratio 19.2, Glucose 198 H, Calcium 8.5 Micro: Microbiology 01/29/25 15:00 Wound - Open/Non-Healing Wound Skin and Soft Tissue MRSA/MSSA (PCR - Final Staphylococcus aureus 01/29/25 11:25 Mucosa - Nasopharyngeal Respiratory Panel (PCR) - Final 01/29/25 12:40 Nasal Secretion MRSA (PCR) - Final Meth. resistant Staph. aureus 01/29/25 13:25 Urine Catheter - Campbell Legionella Antigen - Final 01/29/25 13:25 Urine Catheter - Campbell Streptococcus pneumoniae Antigen (M - Final 01/29/25 08:05 Mucosa - Nose SARS-CoV-2, Influenza & RSV (PCR) - Final ABG Data ABG results: ABG 01/29/25 08:53 Specimen Type ART Sample Site R Brach pH 7.37 Bicarbonate Actual 39.1 H Total CO2 41 Base Excess 14 H O2 Saturation 91 L O2 % 65.0 ABG pCO2 68.5 H* ABG pO2 66 L O2 Delivery Device Airvo Vent Mode Not entered Crit Call To/Read Back Yes Blood Gas Notified Whom Dr. Thompson Blood Gas Notified Time 0905 Clinical Comments 55lpm Radiography Diagnostic Testing: Radiology Impression Chest X-Ray 01/29/25 08:30 IMPRESSION: Acute kyphosis above the patient's thoracolumbar fusion. There is associated hypoventilation with atelectasis in the lower lungs. A significant portion of the atelectasis is likely related to body habitus and positioning. Reading Location: [facility] Rhythm Strip Rhythm Strip: Sinus Rhythm Rate: 99 Ectopy: None Physical Exam Const alert, oriented x3 and no apparent distress Constitutional Narrative: Morbidly obese. General Appearance: cooperative HEENT normocephalic, head/scalp atraumatic and moist oral mucous membranes Eyes PERRL, EOMs intact bilaterally and conjunctivae normal Neck supple General: trachea midline Chest inspection of chest normal Resp Auscultation: diminished lung sounds; Negative for rales, rhonchi or wheezes Cardio regular rate and regular rhythm GI soft to palpation and non-tender Extremity no clubbing, cyanosis or edema Skin Skin Narrative: Decubitus ulcer noted on presentation. Neuro CN's II-XII intact bilaterally Psych cooperative and affect normal Charges/Coding Visit Charges Inpatient E&M: 16784 Subs Hosp L3
--- NOTE | 2025-01-30 07:57 | PCM.PN.HOSP ---
Reason for Visit Chief Complaint: Hypoxia on 15 L, shortness of breath Objective Data Objective Data Vital Signs: Vital Signs Temp Pulse Resp BP Pulse Ox O2 Del Method O2 Flow Rate 96.7 F L 102 H 16 142/73 H 95 Airvo 60 01/30/25 07:06 01/30/25 07:06 01/30/25 07:06 01/30/25 07:06 01/30/25 07:06 01/30/25 07:36 01/30/25 07:06 FiO2 70 01/30/25 07:06 Oxygen Flow Rate (L/min) 60 Oxygen Delivery Method Airvo Weight: 319 lb 3.669 oz Body Mass Index (BMI) 47.1 Intake & Output: Intake and Output for Last 24 Hours 01/28/25 01/29/25 01/30/25 23:59 23:59 23:59 Intake Total 2163.75 / 2163.75 603.33 / 603.33 Output Total 5700 / 6450 1600 / 1600 Balance -3536.25 / -4286.25 -996.67 / -996.67 Lab / Micro Data 01/30/25 03:45 01/30/25 03:45 Labs: Laboratory Results - last 24 hr 01/29/25 08:05: WBC 11.2 H, RBC 3.45 L, Hgb 7.0 L, Hct 26.2 L, MCV 75.9 L, MCH 20.3 L, MCHC 26.7 L, RDW Std Deviation 54.1 H, RDW Coeff of Mary 20.1 H, Plt Count 487 H, MPV 9.3, Immature Gran % (Auto) 0.500, Neut % (Auto) 73.0 H, Lymph % (Auto) 17.6 L, Rice % (Auto) 6.7, Eos % (Auto) 1.8, Baso % (Auto) 0.4, Absolute Neuts (auto) 8.2 H, Absolute Lymphs (auto) 1.97, Nucleated RBC % 0, Polychromasia RARE, Anisocytosis 2+, Sodium 135, Potassium 4.9, Chloride 93 L, Carbon Dioxide 31.0, Anion Gap 12, BUN 18, Creatinine 0.79, Estim Creat Clear Calc 144.08, Est GFR (MDRD) Non-Af 103, BUN/Creatinine Ratio 23.1 H, Glucose 208 H, Lactic Acid 1.5, Calcium 8.8, Troponin T High Sens 216 H* D, NT pro BNP II 370 01/29/25 10:15: Magnesium 2.0, Troponin T Hi Sens 2 Hr 205 H* 01/29/25 12:10: Troponin T Hi Sens 4Hr 182 H* 01/29/25 13:25: Urine Color Yellow, Urine Clarity Sl. Cloudy, Urine pH 5.0, Ur Specific Garrard 1.010, Urine Protein 30 H, Urine Glucose (UA) Normal, Urine Ketones Negative, Urine Occult Blood 50 H, Urine Nitrite Negative, Urine Bilirubin Negative, Urine Urobilinogen Normal, Ur Leukocyte Esterase 500 H, Urine RBC 0 SEEN, Urine WBC 25-50 SEEN, Ur Squamous Epith Cells 0 SEEN, Urine Bacteria 1+, Urine Mucus 0 SEEN 01/29/25 13:46: Blood Type A POSITIVE, Antibody Screen NEGATIVE, Crossmatch See Detail 01/30/25 01:30: POC Glucose 200 H 01/30/25 03:45: WBC 9.1, RBC 3.39 L, Hgb 6.9 L, Hct 25.4 L, MCV 74.9 L, MCH 20.4 L, MCHC 27.2 L, RDW Std Deviation 20.3 L, RDW Coeff of Mary 54.4 H, Plt Count 426, MPV 8.9, Immature Gran % (Auto) 0.500, Neut % (Auto) 81.0 H, Lymph % (Auto) 9.3 L, Rice % (Auto) 6.2, Eos % (Auto) 2.6, Baso % (Auto) 0.4, Absolute Neuts (auto) 7.4, Absolute Lymphs (auto) 0.85, Differential Comment SCANNED, Anisocytosis 2+, Sodium 136, Potassium 4.1, Chloride 93 L, Carbon Dioxide 31.7, Anion Gap 11, BUN 14, Creatinine 0.73, Estim Creat Clear Calc 158.45, Est GFR (MDRD) Non-Af Not Reportable, BUN/Creatinine Ratio 19.2, Glucose 198 H, Calcium 8.5 Micro: Microbiology 01/29/25 15:00 Wound - Open/Non-Healing Wound Skin and Soft Tissue MRSA/MSSA (PCR - Final Staphylococcus aureus 01/29/25 11:25 Mucosa - Nasopharyngeal Respiratory Panel (PCR) - Final 01/29/25 12:40 Nasal Secretion MRSA (PCR) - Final Meth. resistant Staph. aureus 01/29/25 13:25 Urine Catheter - Campbell Legionella Antigen - Final 01/29/25 13:25 Urine Catheter - Campbell Streptococcus pneumoniae Antigen (M - Final 01/29/25 08:05 Mucosa - Nose SARS-CoV-2, Influenza & RSV (PCR) - Final ABG Data ABG results: ABG 01/29/25 08:53 Specimen Type ART Sample Site R Brach pH 7.37 Bicarbonate Actual 39.1 H Total CO2 41 Base Excess 14 H O2 Saturation 91 L O2 % 65.0 ABG pCO2 68.5 H* ABG pO2 66 L O2 Delivery Device Airvo Vent Mode Not entered Crit Call To/Read Back Yes Blood Gas Notified Whom Dr. Thompson Blood Gas Notified Time 09 Clinical Comments 55lpm Radiography Diagnostic Testing: Radiology Impression Chest X-Ray 01/29/25 08:30 IMPRESSION: Acute kyphosis above the patient's thoracolumbar fusion. There is associated hypoventilation with atelectasis in the lower lungs. A significant portion of the atelectasis is likely related to body habitus and positioning. Reading Location: [facility] Rhythm Strip Rhythm Strip: Sinus Rhythm Rate: 99 Ectopy: None Physical Exam Narrative Seen and examined. Patient states he has pain. Large sacral decubitus ulcer.Hemoglobin dropped from 8.1 on 01/19, 7.0 on 01/29 to 6.9 today. General: Alert, Oriented x3, Cooperative. BMI 51.0 kg/m? HEENT: Atraumatic, PERRLA, EOMI, Normocephalic. Oral: No Gingival or Mucosal Lesions/ Ulcerations Neck: Thick and wide neck. Supple, JVD could not be appreciated. negative Carotid Bruits Chest wall/Lungs: Air entry diminished in bilateral lung bases. No crepitation/rhonchi Cardiovascular: Mild sinus tachycardia, soft, no murmur gallop or rub Abdomen: Colostomy with everted bowel. Bowel sounds Present, Soft, Non Tender, liquid stool present in bag : Chronic indwelling catheter No renal angle tenderness. No suprapubic tenderness. Extremities: Mild dependent edema , Capillary Refill Less than 3 Seconds Skin: Large decubitus ulcer lower back, sacrococcygeal region. Multiple decubitus ulcer right and left ischium, sacrum, right buttock, posterior scrotum and left lateral lower leg. Hard to turn around Musculoskeletal: Paraplegic with contracture at hip and knee joints. Neurological: No sensation below waist level. Cranial nerves were intact. Psych/Mental Status: Flat affect Assessment & Plan Assessment/Plan (1) Acute respiratory failure with hypoxia and hypercapnia: PLAN: Plan This is 59-year-old gentleman is being admitted for hypoxia and shortness of breath for 1 day 1. Acute on chronic hypoxic and hypercarbic respiratory failure possibly due to CHF exacerbation/pneumonia: Patient is being admitted in ICU. Currently on Airvo. Chest x-ray daily reviewed and shows bilateral pleural effusion right more than left and congestion. It is reported as hypoventilation with atelectasis in the lower lungs. There is suspicion of pneumonia too. Principal Statistical Programmer consulted. Patient on Airvo. 01/30: Discussed with telecommunications engineer. CTA chest is ordered to rule out PE. Wound culture positive of MRSA including nasal screen. Urinary antigens are negative. Respiratory panel negative. Continue broad-spectrum antibiotic, vancomycin and Zosyn 2. Acute on chronic severe anemia present since admission: Hemoglobin dropped from 8.1 on 01/19, 7.0 on 01/29 to 6.9 today. Tenets of PRBC transfusion has been ordered. Probably bleeding from the sacrococcygeal wound. Wound care consulted. Suspicion of pneumonia: Chest x-ray suboptimal quality because of body habitus. Pneumonia workup ordered. Patient got 1 dose of IV ceftriaxone and Zithromax. Antibiotic broadened to IV vancomycin and Zosyn. 3. CHF exacerbation: Started on IV furosemide 40 mg IV twice daily. Echo from 10/13/2024 demonstrated EF of 55 to 60%, technically difficult patient is on furosemide and currently remains compensated 4. Stage IV chronic decubitus ulcer ? Patient is managed at the wound care center plan . He follows wound center Dr. Christian. Wound care consulted. As per ER physician wound is healing. 5 History of L1 injury with paraplegic status complicated by chronic decubitus ulcers, Chronic Indwelling Campbell with Chronic pain syndrome: Nursing care, frequent change of positioning, dressing change. PT OT and case management consulted. 6 Chronic bilateral pulmonary embolism: Apixaban recently resumed 4 days ago. During previous admission apixaban held because of acute on chronic severe blood loss anemia. 01/30: CTPA is ordered. Apixaban was interrupted because of severe anemia during previous admission and after discharge. 7 Diabetes mellitus type 2: Glucose is 218 BMP. Accu-Chek before meals and at bedtime with Humalog sliding scale coverage and hypoglycemia protocol. 1800 ADA diet. Home insulin regimen continued 8 Morbid obesity: BMI 51.0 kg/m?. No significant change compared to previous hospital admission. 9. Obstructive sleep apnea ? BiPAP therapy at night 10. Essential hypertension ? Patient blood pressure is in normal range. DVT prophylaxis ? Pharmacological prophylaxis contraindicated because of severe anemia. Patient getting PRBC transfusion. Apixaban on hold. Living will/advanced directive/end of life care: Patient does not have living will or advanced directive. He does not religated power of united [place] attorney for health. His sister is next of kin. After discussion of benefits/risks procedures involved with full code, DNR CC arrest and DNR CC, the patient opted for full code. Patient does want artificial life support including intubation, tube feed, ventilator and/chest compression, central venous catheter, vasopressor and DC shock if needed Charges/Coding Visit Charges Inpatient E&M: 90928 [facility] L3
--- NOTE | 2025-01-30 08:04 | CT_ITS ---
PROCEDURE: CTA CHEST W/WO CONTRAST 01/30/2025 REASON FOR EXAM: PE EVALUATION TECHNIQUE: Procedure Code: [id number] Modality: CT Procedure: CTA CHEST W/WO CONTRAST Multiplanar Sagittal and Coronal images were obtained. 3D post processing was performed CONTRAST: Isovue-300 VOLUME: 100 mL One or more dose reduction techniques were used (e.g., Automated exposure control, adjustment of the mA and/or kV according to patient size, use of iterative reconstruction technique). RADIATION DOSE SUMMARY: CTDlvol: 24.8 mGy DLP: 667.55 mGycm COMPARISON: Prior CT scan of the chest dated October 29, 2024. FINDINGS: Hardware: EKG electrodes are seen. Lymph nodes: Small benign-appearing lymph nodes are seen within the mediastinum. Heart: The heart measures upper limits of normal. Coronary artery calcification. Thoracic Aorta: No thoracic aortic aneurysm or dissection. Atherosclerotic plaque formation of the aortic arch. Pulmonary Vessels: No evidence of pulmonary embolism. Lungs and Airways: Dense infiltration in the left lower lobe with volume loss in the left hemithorax with shift of the heart and mediastinum towards the right side of the midline. Patchy left lower lobe infiltrate. Pleura: Minimal bilateral pleural effusions. Upper Abdomen: Unremarkable Bones: Dextroconvex scoliosis. Multilevel fusion with the intrapedicular screw and sharif fixation device. Thoracic compression fractures in the lower thorax. CT/CTA Chest W/WO Contrast IMPRESSION: No evidence of pulmonary embolism. Dense consolidation in the right lower lobe as well as patchy infiltrate in the left lower lobe. Minimal pleural effusions. Reading Location: [place] [id number]
--- NOTE | 2025-01-30 08:04 | VDLE_ITS ---
Reason For Study Reason For Study: Shortness of breath RIGHT LEFT GSV is normal. GSV is normal. FV is compressible, spontaneous, competent and CFV is compressible, spontaneous, competent, and demonstrates pulsatile venous flow. demonstrates pulsatile venous flow. POP V is compressible, spontaneous, competent and FV is compressible, spontaneous, competent and demonstrates pulsatile venous flow. demonstrates pulsatile venous flow. T/P Trunk is compressible. POP V is compressible, spontaneous, competent and PTV is compressible. demonstrates pulsatile venous flow. RT PerV is compressible. T/P Trunk is compressible. CFV not visualized due to patient positioning and PTV is compressible. body habitus. LT PerV is compressible. Procedure This is a venous duplex using B-mode, color flow and spectral Doppler. Exam performed in department. The study was technically difficult. A preliminary report was called and/or faxed to ICU. VL/Venous Duplex US - Zachery Extrem Interpretation Summary Deep veins of the lower extremities are bilaterally patent and compressible seg mentally. There is no evidence of deep vein thrombosis on either side. Valvular competence appears intact within the p roximal deep venous systems bilaterally. The right common femoral vein was not visualized. The great saphenous veins phuc ear bilaterally patent and compressible segmentally. Pulsatile flow was noted in the deep venous system bilaterally, wh ich may be indicative of elevated central venous pressure (i.e. congestive heart failure, pulmonary hypertension, etc.). Clinical correlation is advised. Ordering Physician: Tez Tuttle Referring Physician: Wilma Thayer Performed By: Katiuska Bailey RVT
--- NOTE | 2025-01-30 09:55 | CASEMGMT ---
Discharge Planning [facility] is not requesting that pt return with therapy orders at this time. Dipika Bullard DC Planning Asst.
[2025-01-30] MEDS: DAKIN'S SOL HALF STRENGTH (=0.25%) TOPICAL ×3 (10:17→21:24)
--- NOTE | 2025-01-30 11:31 | WOUNDNOTE ---
wound photo: sacrum/bilateral buttocks/ischium
--- NOTE | 2025-01-30 11:39 | CHAPLAIN ---
Type of Pastoral Visit _x__ Initial Visit ___ Follow-up Visit ___ On-call Visit ___ General Patient Visit ___ Spiritual Assessment ___ Family Conference ___ Bereavement ___ Rapid Response ___ Code Blue ___ Other (describe below) Pastoral Care Referral From _x__ Patient ___ Family ___ Nurse ___ Physician ___ Senior Systems Architect ___ County Supervisor ___ Other (describe below) Sacrament/Intervention _x__ Active listening ___ Anointing ___ Christianity ___ Bereavement ___ Communion ___ Migdalia exploration ___ ___ Life review _x__ Prayer ___ Reconciliation ___ Sacrament of Sick _x__ Supportive presence ___ Wedding ___ Other (describe below) Pastoral Comments patient has been seen in previous admissions; 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
[2025-01-30] MEDS: Vancomycin Trough/Random Due 1 LAB MC (12:55)
[2025-01-30 13:32] LABS: Vancomycin, Trough Level 22.7 ug/mL (5.0-15.0)
--- NOTE | 2025-01-30 13:48 | PHA.PHARE_ITS ---
Consult Antibiotic Management Pharmacy has been consulted to manage selected antibiotic: Vancomycin Type of Intervention Type of Consult: Follow-up Suspected Infection Suspected Infection: Skin/Soft tissue and Pneumonia Prior Doses of Antibiotics Prior Doses of Antibiotics Received/Current Regimen: current dose is 1500mg IV q8h Labs Labs: Sodium 136 mmol/L (133-145) 01/30/25 03:45 Potassium 4.1 mmol/L (3.3-5.1) 01/30/25 03:45 Chloride 93 mmol/L (98-108) L 01/30/25 03:45 Carbon Dioxide 31.7 mmol/L (21.0-32.0) 01/30/25 03:45 Anion Gap 11 (5-15) 01/30/25 03:45 BUN 14 mg/dL (4-19) 01/30/25 03:45 Creatinine 0.73 mg/dL (0.70-1.20) 01/30/25 03:45 Est GFR (MDRD) Non-Af 106 (>60) 01/30/25 03:45 BUN/Creatinine Ratio 19.2 RATIO (10-20) 01/30/25 03:45 Glucose 198 mg/dL (70-99) H 01/30/25 03:45 Vancomycin Trough 22.7 ug/mL (5.0-15.0) H 01/30/25 12:55 Microbiology Microbiology: Microbiology 01/29/25 16:28 Sputum, Expectorated/Coughed Gram Stain - Final 01/29/25 15:00 Wound - Open/Non-Healing Wound Skin and Soft Tissue MRSA/MSSA (PCR - Final Staphylococcus aureus 01/29/25 11:25 Mucosa - Nasopharyngeal Respiratory Panel (PCR) - Final 01/29/25 12:40 Nasal Secretion MRSA (PCR) - Final Meth. resistant Staph. aureus 01/29/25 13:25 Urine Catheter - Campbell Legionella Antigen - Final 01/29/25 13:25 Urine Catheter - Campbell Streptococcus pneumoniae Antigen (M - Final 01/29/25 08:05 Mucosa - Nose SARS-CoV-2, Influenza & RSV (PCR) - Final Dosing Weight Weight used for dosin.8 kg Estimated Creatinine Clearance Estimated Creatinine Clearance: 158 ml/min Goal Trough Goal Trough: 15-20 mcg/mL Pharmacy Plan for Drug Dosing Pharmacy Plan for Drug Dosing: The vanc trough drawn at 12:55 today (approx 8 hours after the previous dose) was 22.7 mcg/ml. This is above goal range so will hold current dose. Check a random level in 8 hours per [facility] protocol and will be able to resume dosing with a newly calculated dose at that time if level is back below 20 mcg/ml. Pharmacy Service will continue to monitor and adjust dosing as required. Follow-Up Labs Follow-Up Labs: Trough: Vancomycin (random) Date/Time Labs Ordered Labs to be done on [date and time ordered]: 01/30/25 21:00
[2025-01-30 14:09] LABS: Hematocrit 29.6 % (40-54); Hemoglobin 8.3 g/dL (13.0-16.5)
--- NOTE | 2025-01-30 14:22 | CASEMGMT ---
Social Work- SW met with pt to discuss discharge planning. SW introduced self and role and verified contacts. Pt reports that he plans to return to [facility] at time of discharge. Pt was not receiving therapy. DCA notified of intent to return. SW remans available to follow. Plan: [place]; intermediate level of care MAHNAZ Beatty
[2025-01-30] MEDS: Fluticasone 0.05% 1 SPRAY NASAL.SRY NASAL (16:43)
[2025-01-30] MEDS: Juven (unflavored) Packet 1 PACKET PO (17:01)
[2025-01-30] MEDS: morphine SR 15 MG Tablet PO (21:23)
[2025-01-30] MEDS: Lactobacillis Acidophilus 1 CAP PO (21:25)
[2025-01-30 22:34] LABS: Vancomycin, Random Level 15.0 ug/mL (0.0-15.0)
--- NOTE | 2025-01-30 22:50 | PCM.RX.CS ---
Consult Antibiotic Management Pharmacy has been consulted to manage selected antibiotic: Vancomycin Type of Intervention Type of Consult: Follow-up Labs Labs: Sodium 136 mmol/L (133-145) 01/30/25 03:45 Potassium 4.1 mmol/L (3.3-5.1) 01/30/25 03:45 Chloride 93 mmol/L (98-108) L 01/30/25 03:45 Carbon Dioxide 31.7 mmol/L (21.0-32.0) 01/30/25 03:45 Anion Gap 11 (5-15) 01/30/25 03:45 BUN 14 mg/dL (4-19) 01/30/25 03:45 Creatinine 0.73 mg/dL (0.70-1.20) 01/30/25 03:45 Est GFR (MDRD) Non-Af 106 (>60) 01/30/25 03:45 BUN/Creatinine Ratio 19.2 RATIO (10-20) 01/30/25 03:45 Glucose 198 mg/dL (70-99) H 01/30/25 03:45 Vancomycin Trough 22.7 ug/mL (5.0-15.0) H 01/30/25 12:55 Random Vancomycin 15.0 ug/mL (0.0-15.0) 01/30/25 21:32 Microbiology Microbiology: Microbiology 01/29/25 16:28 Sputum, Expectorated/Coughed Gram Stain - Final 01/29/25 15:00 Wound - Open/Non-Healing Wound Skin and Soft Tissue MRSA/MSSA (PCR - Final Staphylococcus aureus 01/29/25 11:25 Mucosa - Nasopharyngeal Respiratory Panel (PCR) - Final 01/29/25 12:40 Nasal Secretion MRSA (PCR) - Final Meth. resistant Staph. aureus 01/29/25 13:25 Urine Catheter - Cmapbell Legionella Antigen - Final 01/29/25 13:25 Urine Catheter - Campbell Streptococcus pneumoniae Antigen (M - Final 01/29/25 08:05 Mucosa - Nose SARS-CoV-2, Influenza & RSV (PCR) - Final Goal Trough Goal Trough: 15-20 mcg/mL Pharmacy Plan for Drug Dosing Pharmacy Plan for Drug Dosing: Pharmacy Service will continue to monitor and adjust dosing as required. RANDOM LEVEL 15.0. START 1000MG Q8H AND DRAW TROUGH PRIOR TO 4TH DOSE Follow-Up Labs Follow-Up Labs: Trough: Vancomycin Date/Time Labs Ordered Labs to be done on [date and time ordered]: 01/31 @ 1224
[2025-01-30] MEDS: Vancomycin HCl 1,000 MG in 0.9% Normal Saline (250mL Bag) 250 ML 250 MG IV (23:06)
[2025-01-31] VITALS (24 sets, daily range): BP systolic 102–161; BP diastolic 53–97; PULSE 85–102; RESP 12–22; TEMP 36.4–36.6; O2SAT 45–98; BMI 47.2
[2025-01-31] MEDS: 0.9% Saline Lock 10 ML Syringe IV ×3 (02:13→22:33)
[2025-01-31] MEDS: Polyethylene Glycol 3350 17 GM PACKET PO ×3 (06:16→21:47)
[2025-01-31] MEDS: Piperacil/Tazobactam 3.375 GM in 0.9% Normal Saline (50mL MB+) 50 ML IV ×3 (06:17→21:47)
[2025-01-31] MEDS: Vancomycin HCl 1,000 MG in 0.9% Normal Saline (250mL Bag) 250 ML 250 MG IV ×3 (06:17→22:32)
--- NOTE | 2025-01-31 07:29 | PN.CC_ITS ---
Assessment & Plan Assessment/Plan (1) Acute on chronic respiratory failure with hypoxia and hypercapnia: PLAN: Plan RECOMMENDATIONS: 1. Continue to wean supplemental oxygen to maintain saturation is 88 to 92%. 2. BiPAP therapy with naps and nightly. 3. Continue empiric antimicrobials to complete 7 days of therapy. 4. Continue to monitor H&H daily. Transfuse if hemoglobin drops below 7 g/dL. 5. Continue local wound care, given decubitus ulcer on presentation. 6. Continue diuretics, as tolerated by hemodynamics and renal function. IMPRESSIONS: 1. Acute on chronic combined respiratory failure Appears to be secondary to dense lower lobe consolidation noted on CT imaging of the chest. There was no evidence of pulmonary embolism. The patient does have a baseline oxygen requirement of 4 L/min with questionable compliance with PAP therapy. For now, the patient will be continued on heated high flow oxygen with a goal to maintain saturations 88 to 92%. Will plan to continue empiric antimicrobials along with scheduled diuretics, as tolerated by hemodynamics and renal function. 2. Acute on chronic anemia in the setting of bleeding decubitus ulcer The patient was recently hospitalized with anemia related to a bleeding decubitus ulcer. Recommend continuing to monitor H&H and transfuse if hemoglobin drops below 7 g/dL. Continue to hold systemic anticoagulation. 3. Obstructive sleep apnea/alveolar hypoventilation secondary to obesity Continue BiPAP support with naps and nightly. 4. History of paraplegia related to L1 injury/chronic pain syndrome/morbid obesity Complicates care, management, recovery and prognosis. Continue supportive measures as noted above. CODE STATUS: Full code (confirmed with patient) This note was generated with [employer] dictation software. It may contain incorrect words, spelling, and punctuation that were not noted in checking the note before signing. Subjective Subjective The patient was seen and examined at the bedside this morning. Events from the last 24 hours have been reviewed. The patient is currently afebrile, hemodynamically stable and maintaining appropriate oxygen saturations on heated high flow with an FiO2 requirement of 40%. The patient is documented to be overall net -8 L for the hospitalization. Pain is currently controlled. He indicated that he wears BiPAP last night for approximately 5 hours. White blood cell count is normal. Hemoglobin is stable at 8.0 g/dL. Creatinine is within normal limits. Objective Data Objective Data The patient's most recent lab work, culture data and imaging studies have all been personally reviewed. Wound culture is currently demonstrating growth of Staphylococcus aureus. Vital Signs: Vital Signs Temp Pulse Resp BP Pulse Ox O2 Del Method O2 Flow Rate 97.8 F 94 17 144/70 H 94 Airvo 45 01/30/25 23:00 01/31/25 07:00 01/31/25 07:00 01/31/25 07:00 01/31/25 07:00 01/31/25 07:00 01/31/25 07:00 FiO2 45 01/31/25 07:00 Oxygen Flow Rate (L/min) 45 Oxygen Delivery Method Airvo Weight: 320 lb 1.779 oz Body Mass Index (BMI) 47.2 Intake & Output: Intake and Output for Last 24 Hours 01/29/25 01/30/25 01/31/25 23:59 23:59 23:59 Intake Total 2163.75 / 2163.75 2173.33 / 2173.33 1270 / 1270 Output Total 5700 / 6450 5325 / 7325 2600 / 2600 Balance -3536.25 / -4286.25 -3151.67 / -5151.67 -1330 / -1330 Lab / Micro Data Attestation: I reviewed the patient's lab results. 01/31/25 08:05 01/31/25 08:05 Labs: Laboratory Results - last 24 hr 01/29/25 13:46: Blood Type A POSITIVE, Antibody Screen NEGATIVE, Crossmatch See Detail 01/30/25 03:45: Est GFR (MDRD) Non-Af 106 01/30/25 08:08: POC Glucose 186 H 01/30/25 11:02: POC Glucose 186 H 01/30/25 12:55: Vancomycin Trough 22.7 H 01/30/25 13:55: Hgb 8.3 L, Hct 29.6 L 01/30/25 16:32: POC Glucose 222 H 01/30/25 21:32: Random Vancomycin 15.0 01/30/25 21:33: POC Glucose 147 H 01/31/25 06:20: POC Glucose 192 H Micro: Microbiology 01/29/25 16:28 Sputum, Expectorated/Coughed Gram Stain - Final 01/29/25 15:00 Wound - Open/Non-Healing Wound Skin and Soft Tissue MRSA/MSSA (PCR - Final Staphylococcus aureus 01/29/25 11:25 Mucosa - Nasopharyngeal Respiratory Panel (PCR) - Final 01/29/25 12:40 Nasal Secretion MRSA (PCR) - Final Meth. resistant Staph. aureus 01/29/25 13:25 Urine Catheter - Campbell Legionella Antigen - Final 01/29/25 13:25 Urine Catheter - Campbell Streptococcus pneumoniae Antigen (M - Final 01/29/25 08:05 Mucosa - Nose SARS-CoV-2, Influenza & RSV (PCR) - Final ABG Data ABG results: ABG 01/29/25 08:53 Specimen Type ART Sample Site R Brach pH 7.37 Bicarbonate Actual 39.1 H Total CO2 41 Base Excess 14 H O2 Saturation 91 L O2 % 65.0 ABG pCO2 68.5 H* ABG pO2 66 L O2 Delivery Device Airvo Vent Mode Not entered Crit Call To/Read Back Yes Blood Gas Notified Whom Dr. Thompson Blood Gas Notified Time 0905 Clinical Comments 55lpm Radiography Diagnostic Testing: Radiology Impression Chest CTA 01/30/25 08:04 IMPRESSION: No evidence of pulmonary embolism. Dense consolidation in the right lower lobe as well as patchy infiltrate in the left lower lobe. Minimal pleural effusions. Reading Location: [facility]1 Venous Doppler Study 01/30/25 08:04 Interpretation Summary Deep veins of the lower extremities are bilaterally patent and compressible segmentally. There is no evidence of deep vein thrombosis on either side. Valvular competence appears intact within the proximal deep venous systems bilaterally. The right common femoral vein was not visualized. The great saphenous veins appear bilaterally patent and compressible segmentally. Pulsatile flow was noted in the deep venous system bilaterally, which may be indicative of elevated central venous pressure (i.e. congestive heart failure, pulmonary hypertension, etc.). Clinical correlation is advised. Ordering Physician: Tez Tuttle Referring Physician: Wilma Thayer Performed By: Katiuska Bailey RVT Rhythm Strip Rhythm Strip: Sinus Rhythm Rate: 99 Ectopy: None Physical Exam Const alert, oriented x3 and no apparent distress Constitutional Narrative: Morbidly obese. General Appearance: cooperative HEENT normocephalic, head/scalp atraumatic and moist oral mucous membranes Eyes PERRL, EOMs intact bilaterally and conjunctivae normal Neck supple General: trachea midline Chest inspection of chest normal Resp Auscultation: diminished lung sounds; Negative for rales, rhonchi or wheezes Cardio regular rate and regular rhythm GI soft to palpation and non-tender Extremity no clubbing, cyanosis or edema Skin Skin Narrative: Decubitus ulcer noted on presentation. Neuro CN's II-XII intact bilaterally Psych cooperative and affect normal Charges/Coding Visit Charges Inpatient E&M: 61782 Subs Hosp L2
--- NOTE | 2025-01-31 07:30 | PN.HOSP_ITS ---
Reason for Visit Chief Complaint: Hypoxia on 15 L, shortness of breath Objective Data Objective Data Vital Signs: Vital Signs Temp Pulse Resp BP Pulse Ox O2 Del Method O2 Flow Rate 97.8 F 94 17 144/70 H 94 Airvo 45 01/30/25 23:00 01/31/25 07:00 01/31/25 07:00 01/31/25 07:00 01/31/25 07:00 01/31/25 07:00 01/31/25 07:00 FiO2 45 01/31/25 07:00 Oxygen Flow Rate (L/min) 45 Oxygen Delivery Method Airvo Weight: 320 lb 1.779 oz Body Mass Index (BMI) 47.2 Intake & Output: Intake and Output for Last 24 Hours 01/29/25 01/30/25 01/31/25 23:59 23:59 23:59 Intake Total 2163.75 / 2163.75 2173.33 / 2173.33 1270 / 1270 Output Total 5700 / 6450 5325 / 7325 2600 / 2600 Balance -3536.25 / -4286.25 -3151.67 / -5151.67 -1330 / -1330 Lab / Micro Data 01/30/25 13:55 01/30/25 03:45 Labs: Laboratory Results - last 24 hr 01/29/25 13:46: Blood Type A POSITIVE, Antibody Screen NEGATIVE, Crossmatch See Detail 01/30/25 03:45: Est GFR (MDRD) Non-Af 106 01/30/25 08:08: POC Glucose 186 H 01/30/25 11:02: POC Glucose 186 H 01/30/25 12:55: Vancomycin Trough 22.7 H 01/30/25 13:55: Hgb 8.3 L, Hct 29.6 L 01/30/25 16:32: POC Glucose 222 H 01/30/25 21:32: Random Vancomycin 15.0 01/30/25 21:33: POC Glucose 147 H 01/31/25 06:20: POC Glucose 192 H Micro: Microbiology 01/29/25 16:28 Sputum, Expectorated/Coughed Gram Stain - Final 01/29/25 15:00 Wound - Open/Non-Healing Wound Skin and Soft Tissue MRSA/MSSA (PCR - Final Staphylococcus aureus 01/29/25 11:25 Mucosa - Nasopharyngeal Respiratory Panel (PCR) - Final 01/29/25 12:40 Nasal Secretion MRSA (PCR) - Final Meth. resistant Staph. aureus 01/29/25 13:25 Urine Catheter - Campbell Legionella Antigen - Final 01/29/25 13:25 Urine Catheter - Campbell Streptococcus pneumoniae Antigen (M - Final 01/29/25 08:05 Mucosa - Nose SARS-CoV-2, Influenza & RSV (PCR) - Final Radiography Diagnostic Testing: Radiology Impression Chest CTA 01/30/25 08:04 IMPRESSION: No evidence of pulmonary embolism. Dense consolidation in the right lower lobe as well as patchy infiltrate in the left lower lobe. Minimal pleural effusions. Reading Location: [facility]-1 Venous Doppler Study 01/30/25 08:04 Interpretation Summary Deep veins of the lower extremities are bilaterally patent and compressible segmentally. There is no evidence of deep vein thrombosis on either side. Valvular competence appears intact within the proximal deep venous systems bilaterally. The right common femoral vein was not visualized. The great saphenous veins appear bilaterally patent and compressible segmentally. Pulsatile flow was noted in the deep venous system bilaterally, which may be indicative of elevated central venous pressure (i.e. congestive heart failure, pulmonary hypertension, etc.). Clinical correlation is advised. Ordering Physician: Tez Tuttle Referring Physician: Wilma Thayer Performed By: Katiuska Bailey RVT Rhythm Strip Rhythm Strip: Sinus Rhythm Rate: 99 Ectopy: None Physical Exam Narrative Seen and examined. Patient states he has pain. Large sacral decubitus ulcer.Hemoglobin dropped from 8.1 on 01/19, 7.0 on 01/29 to 6.9 today. General: Alert, Oriented x3, Cooperative. BMI 51.0 kg/m? HEENT: Atraumatic, PERRLA, EOMI, Normocephalic. Oral: No Gingival or Mucosal Lesions/ Ulcerations Neck: Thick and wide neck. Supple, JVD could not be appreciated. negative Carotid Bruits Chest wall/Lungs: Air entry diminished in bilateral lung bases. No crepitation/rhonchi Cardiovascular: Mild sinus tachycardia, soft, no murmur gallop or rub Abdomen: Colostomy with everted bowel. Bowel sounds Present, Soft, Non Tender, liquid stool present in bag : Chronic indwelling catheter No renal angle tenderness. No suprapubic tenderness. Extremities: Mild dependent edema , Capillary Refill Less than 3 Seconds Skin: Large decubitus ulcer lower back, sacrococcygeal region. Multiple decubitus ulcer right and left ischium, sacrum, right buttock, posterior scrotum and left lateral lower leg. Hard to turn around Musculoskeletal: Paraplegic with contracture at hip and knee joints. Neurological: No sensation below waist level. Cranial nerves were intact. Psych/Mental Status: Flat affect Assessment & Plan Assessment/Plan (1) Acute respiratory failure with hypoxia and hypercapnia: PLAN: Plan This is 59-year-old gentleman is being admitted for hypoxia and shortness of breath for 1 day 1. Acute on chronic hypoxic and hypercarbic respiratory failure possibly due to CHF exacerbation/pneumonia: Patient is being admitted in ICU. Currently on Airvo. Chest x-ray daily reviewed and shows bilateral pleural effusion right more than left and congestion. It is reported as hypoventilation with atelectasis in the lower lungs. There is suspicion of pneumonia too. Belt Molder consulted. Patient on Airvo. 01/30: Discussed with waste disposal attendant. CTA chest is ordered to rule out PE. Wound culture positive of MRSA including nasal screen. Urinary antigens are negative. Respiratory panel negative. Continue broad-spectrum antibiotic, vancomycin and Zosyn 2. Acute on chronic severe anemia present since admission: Hemoglobin dropped from 8.1 on 01/19, 7.0 on 01/29 to 6.9 today. Tenets of PRBC transfusion has been ordered. Probably bleeding from the sacrococcygeal wound. Wound care consulted. Suspicion of pneumonia: Chest x-ray suboptimal quality because of body habitus. Pneumonia workup ordered. Patient got 1 dose of IV ceftriaxone and Zithromax. Antibiotic broadened to IV vancomycin and Zosyn. 3. CHF exacerbation: Started on IV furosemide 40 mg IV twice daily. Echo from 10/13/2024 demonstrated EF of 55 to 60%, technically difficult patient is on furosemide and currently remains compensated 4. Stage IV chronic decubitus ulcer ? Patient is managed at the wound care center plan . He follows wound center Dr. Christian. Wound care consulted. As per ER physician wound is healing. 5 History of L1 injury with paraplegic status complicated by chronic decubitus ulcers, Chronic Indwelling Campbell with Chronic pain syndrome: Nursing care, frequent change of positioning, dressing change. PT OT and case management consulted. 6 Chronic bilateral pulmonary embolism: Apixaban recently resumed 4 days ago. During previous admission apixaban held because of acute on chronic severe blood loss anemia. 01/30: CTPA is ordered. Apixaban was interrupted because of severe anemia during previous admission and after discharge. 7 Diabetes mellitus type 2: Glucose is 218 BMP. Accu-Chek before meals and at bedtime with Humalog sliding scale coverage and hypoglycemia protocol. 1800 ADA diet. Home insulin regimen continued 8 Morbid obesity: BMI 51.0 kg/m?. No significant change compared to previous hospital admission. 9. Obstructive sleep apnea ? BiPAP therapy at night 10. Essential hypertension ? Patient blood pressure is in normal range. DVT prophylaxis ? Pharmacological prophylaxis contraindicated because of severe anemia. Patient getting PRBC transfusion. Apixaban on hold. Living will/advanced directive/end of life care: Patient does not have living will or advanced directive. He does not religated power of commercial real estate attorney for health. His sister is next of kin. After discussion of benefits/risks procedures involved with full code, DNR CC arrest and DNR CC, the patient opted for full code. Patient does want artificial life support including intubation, tube feed, ventilator and/chest compression, central venous catheter, vasopressor and DC shock if needed
[2025-01-31] MEDS: Juven (unflavored) Packet 1 PACKET PO ×2 (07:51→15:49)
[2025-01-31] MEDS: Lactobacillis Acidophilus 1 CAP PO ×2 (07:52→21:47)
[2025-01-31] MEDS: Fluticasone 0.05% 1 SPRAY NASAL.SRY NASAL (07:53)
[2025-01-31] MEDS: Potassium Chloride Oral Tablet 20 MEQ PO (07:53)
[2025-01-31] MEDS: morphine SR 15 MG Tablet PO ×2 (07:54→21:47)
[2025-01-31] MEDS: Insulin Glargine-YFGN 100 UNIT/ML Pen 20 UNIT SC (07:54)
--- NOTE | 2025-01-31 07:57 | PCM.PN.HOSP ---
Reason for Visit Chief Complaint: Hypoxia on 15 L, shortness of breath Objective Data Objective Data Vital Signs: Vital Signs Temp Pulse Resp BP Pulse Ox O2 Del Method O2 Flow Rate 97.8 F 94 17 144/70 H 94 Airvo 45 01/30/25 23:00 01/31/25 07:00 01/31/25 07:00 01/31/25 07:00 01/31/25 07:00 01/31/25 07:00 01/31/25 07:00 FiO2 45 01/31/25 07:00 Oxygen Flow Rate (L/min) 45 Oxygen Delivery Method Airvo Weight: 320 lb 1.779 oz Body Mass Index (BMI) 47.2 Intake & Output: Intake and Output for Last 24 Hours 01/29/25 01/30/25 01/31/25 23:59 23:59 23:59 Intake Total 2163.75 / 2163.75 2173.33 / 2173.33 1270 / 1270 Output Total 5700 / 6450 5325 / 7325 2600 / 2600 Balance -3536.25 / -4286.25 -3151.67 / -5151.67 -1330 / -1330 Lab / Micro Data 01/30/25 13:55 01/30/25 03:45 Labs: Laboratory Results - last 24 hr 01/29/25 13:46: Blood Type A POSITIVE, Antibody Screen NEGATIVE, Crossmatch See Detail 01/30/25 03:45: Est GFR (MDRD) Non-Af 106 01/30/25 08:08: POC Glucose 186 H 01/30/25 11:02: POC Glucose 186 H 01/30/25 12:55: Vancomycin Trough 22.7 H 01/30/25 13:55: Hgb 8.3 L, Hct 29.6 L 01/30/25 16:32: POC Glucose 222 H 01/30/25 21:32: Random Vancomycin 15.0 01/30/25 21:33: POC Glucose 147 H 01/31/25 06:20: POC Glucose 192 H Micro: Microbiology 01/29/25 16:28 Sputum, Expectorated/Coughed Gram Stain - Final 01/29/25 16:28 Sputum, Expectorated/Coughed Respiratory Culture - Preliminary Presumptive C albicans 01/29/25 15:00 Wound - Open/Non-Healing Wound Skin and Soft Tissue MRSA/MSSA (PCR - Final Staphylococcus aureus 01/29/25 11:25 Mucosa - Nasopharyngeal Respiratory Panel (PCR) - Final 01/29/25 12:40 Nasal Secretion MRSA (PCR) - Final Meth. resistant Staph. aureus 01/29/25 13:25 Urine Catheter - Campbell Legionella Antigen - Final 01/29/25 13:25 Urine Catheter - Campbell Streptococcus pneumoniae Antigen (M - Final 01/29/25 08:05 Mucosa - Nose SARS-CoV-2, Influenza & RSV (PCR) - Final Radiography Diagnostic Testing: Radiology Impression Chest CTA 01/30/25 08:04 IMPRESSION: No evidence of pulmonary embolism. Dense consolidation in the right lower lobe as well as patchy infiltrate in the left lower lobe. Minimal pleural effusions. Reading Location: [facility]-1 Venous Doppler Study 01/30/25 08:04 Interpretation Summary Deep veins of the lower extremities are bilaterally patent and compressible segmentally. There is no evidence of deep vein thrombosis on either side. Valvular competence appears intact within the proximal deep venous systems bilaterally. The right common femoral vein was not visualized. The great saphenous veins appear bilaterally patent and compressible segmentally. Pulsatile flow was noted in the deep venous system bilaterally, which may be indicative of elevated central venous pressure (i.e. congestive heart failure, pulmonary hypertension, etc.). Clinical correlation is advised. Ordering Physician: Tez Tuttle Referring Physician: Wilma Thayer Performed By: Katiuska Bailey RVT Rhythm Strip Rhythm Strip: Sinus Rhythm Rate: 99 Ectopy: None Physical Exam Narrative Seen and examined. Pain is controlled. Complain of severe pain yesterday evening over the back. Patient on Airvo. Large sacral decubitus ulcer. Hemoglobin dropped from 8.1 on 9/6, 7.0 on 01/29 to 6.9 today. Physical exam General: Alert, Oriented x3, Cooperative. BMI 51.0 kg/m? HEENT: Atraumatic, PERRLA, EOMI, Normocephalic. Oral: No Gingival or Mucosal Lesions/ Ulcerations Neck: Thick and wide neck. Supple, JVD could not be appreciated. negative Carotid Bruits Chest wall/Lungs: Air entry diminished in bilateral lung bases. No crepitation/rhonchi Cardiovascular: Mild sinus tachycardia, soft, no murmur gallop or rub Abdomen: Colostomy with everted bowel. Bowel sounds Present, Soft, Non Tender, liquid stool present in bag : Chronic indwelling catheter No renal angle tenderness. No suprapubic tenderness. Extremities: Mild dependent edema , Capillary Refill Less than 3 Seconds Skin: Large decubitus ulcer lower back, sacrococcygeal region. Multiple decubitus ulcer right and left ischium, sacrum, right buttock, posterior scrotum and left lateral lower leg. Was oozing blood Musculoskeletal: Paraplegic with contracture at hip and knee joints. Neurological: No sensation below waist level. Cranial nerves were intact. Psych/Mental Status: Flat affect Assessment & Plan Assessment/Plan (1) Acute respiratory failure with hypoxia and hypercapnia: PLAN: Plan This is 59-year-old gentleman is being admitted for hypoxia and shortness of breath for 1 day 1. Acute on chronic hypoxic and hypercarbic respiratory failure possibly due to CHF exacerbation/pneumonia: Patient is being admitted in ICU. Currently on Airvo. Chest x-ray daily reviewed and shows bilateral pleural effusion right more than left and congestion. It is reported as hypoventilation with atelectasis in the lower lungs. There is suspicion of pneumonia too. Repair Coil Winder consulted. Patient on Airvo. 01/30: Discussed with newsperson. CTA chest is ordered to rule out PE. Wound culture positive of MRSA including nasal screen. Urinary antigens are negative. Respiratory panel negative. Continue broad-spectrum antibiotic, vancomycin and Zosyn 01/31: CTPA negative for PE but shows dense consolidation in the right lower lobe and patchy on the left lower lobe. Air entry severely diminished in bilateral lung bases. Incentive spirometry and PEP encouraged. Venous duplex also negative for DVT Bilateral lower lobes consolidation/complicated pneumonia: Chest x-ray suboptimal quality because of body habitus. Pneumonia workup ordered. Patient got 1 dose of IV ceftriaxone and Zithromax. Antibiotic broadened to IV vancomycin and Zosyn. 2. Acute on chronic severe anemia present since admission: Hemoglobin dropped from 8.1 on 01/19, 7.0 on 01/29 to 6.9 today. Tenets of PRBC transfusion has been ordered. Probably bleeding from the sacrococcygeal wound. Wound care consulted. 01/31: Posttransfusion H&H 8.3/30%. 2 units PRBC were transfused. Labs pending for today morning. 3. CHF exacerbation: Started on IV furosemide 40 mg IV twice daily. Echo from 10/13/2024 demonstrated EF of 55 to 60%, technically difficult patient is on furosemide and currently remains compensated 4. Stage IV chronic decubitus ulcer ? Patient is managed at the wound care center plan . He follows wound center Dr. Christian. Wound care consulted. As per ER physician wound is healing. 5 History of L1 injury with paraplegic status complicated by chronic decubitus ulcers, Chronic Indwelling Campbell with Chronic pain syndrome: Nursing care, frequent change of positioning, dressing change. PT OT and case management consulted. 6 Chronic bilateral pulmonary embolism: Apixaban recently resumed 4 days ago. During previous admission apixaban held because of acute on chronic severe blood loss anemia. 01/30: CTPA is ordered. Apixaban was interrupted because of severe anemia during previous admission and after discharge. 01/31 as mentioned above CTPA was negative. Patient has large decubitus ulcer in the back which was oozing. Highlylikely to bleed on resumption of Eliquis. Risk of DVT/PE and bleeding explained to the patient 7 Diabetes mellitus type 2: Glucose is 218 BMP. Accu-Chek before meals and at bedtime with Humalog sliding scale coverage and hypoglycemia protocol. 1800 ADA diet. Home insulin regimen continued 8 Morbid obesity: BMI 51.0 kg/m?. No significant change compared to previous hospital admission. 9. Obstructive sleep apnea ? BiPAP therapy at night 10. Essential hypertension ? Patient blood pressure is in normal range. DVT prophylaxis ? Pharmacological prophylaxis contraindicated because of severe anemia. Patient getting PRBC transfusion. Apixaban on hold. Living will/advanced directive/end of life care: Patient does not have living will or advanced directive. He does not religated power of sports attorney for health. His sister is next of kin. After discussion of benefits/risks procedures involved with full code, DNR CC arrest and DNR CC, the patient opted for full code. Patient does want artificial life support including intubation, tube feed, ventilator and/chest compression, central venous catheter, vasopressor and DC shock if needed Charges/Coding Visit Charges Inpatient E&M: 24627 Subs Hosp L3
[2025-01-31 08:28] LABS: Hematocrit 27.9 % (40-54); Hemoglobin 8.0 g/dL (13.0-16.5); Immature Granulocytes Count 0.030 X10^3/uL (0.0-0.0); Mean Corp Hgb Conc 28.7 g/dL (32-36); Mean Corpuscular Volume 77.5 fL (80-94); Mean Platelet Vol. 8.7 fl (6.2-12.0); NRBC Flagged by Analyzer 0 % (0-5); POSITIVE MORPHOLOGY YES; Platelet Count 399 K/mm3 (150-450); RBC Distribution Width CV 21.2 % (11.6-14.6); RBC Distribution Width SD 57.7 fl (35.1-43.9); Red Blood Count 3.60 M/mm3 (4.6-6.2)
[2025-01-31 08:31] LABS: Differential Indicated SCAN CRITERIA MET
[2025-01-31 08:56] LABS: White Blood Count 7.5 K/mm3 (4.4-11.0)
[2025-01-31 08:57] LABS: Anion Gap 11 (5-15); BUN 11 mg/dL (4-19); BUN/Creat Ratio 17.5 RATIO (10-20); Calcium,Total 8.7 mg/dL (7.6-11.0); Carbon Dioxide 32.4 mmol/L (21.0-32.0); Chloride 94 mmol/L (98-108); Estimated Creatinine Clearance 186.86 ml/min (50-250); Glucose 208 mg/dL (70-99); Potassium 3.8 mmol/L (3.3-5.1)
[2025-01-31 08:58] LABS: Anisocytosis 2+; Polychromasia 1+
--- NOTE | 2025-01-31 09:03 | CASEMGMT ---
Discharge Planning Updates sent to [facility]. Dipika Bullard DC Planning Asst.
--- NOTE | 2025-01-31 10:19 | CASEMGMT ---
Social Work- SW participated in interdisciplinary rounds with pt care team. Pt continues to have medical interventions and is not ready for discharge at this time. SW continues to follow for discharge planning needs. Plan: Arie, return to intermediate level of care MAHNAZ Beatty
[2025-01-31] MEDS: DAKIN'S SOL HALF STRENGTH (=0.25%) TOPICAL ×4 (10:31→21:48)
[2025-01-31] MEDS: HYDROmorphone 0.5 MG/0.5 ML SYRINGE IV (14:13)
[2025-01-31 22:13] LABS: Vancomycin, Trough Level 21.8 ug/mL (5.0-15.0)
--- NOTE | 2025-01-31 23:05 | PCM.RX.CS ---
Consult Antibiotic Management Pharmacy has been consulted to manage selected antibiotic: Vancomycin Type of Intervention Type of Consult: Follow-up Labs Labs: Sodium 138 mmol/L (133-145) 01/31/25 08:05 Potassium 3.8 mmol/L (3.3-5.1) 01/31/25 08:05 Chloride 94 mmol/L (98-108) L 01/31/25 08:05 Carbon Dioxide 32.4 mmol/L (21.0-32.0) H 01/31/25 08:05 Anion Gap 11 (5-15) 01/31/25 08:05 BUN 11 mg/dL (4-19) 01/31/25 08:05 Creatinine 0.62 mg/dL (0.70-1.20) L 01/31/25 08:05 Est GFR (MDRD) Non-Af 111 (>60) 01/31/25 08:05 BUN/Creatinine Ratio 17.5 RATIO (10-20) 01/31/25 08:05 Glucose 208 mg/dL (70-99) H 01/31/25 08:05 Vancomycin Trough 21.8 ug/mL (5.0-15.0) H 01/31/25 21:10 Random Vancomycin 15.0 ug/mL (0.0-15.0) 01/30/25 21:32 Microbiology Microbiology: Microbiology 01/29/25 16:28 Sputum, Expectorated/Coughed Gram Stain - Final 01/29/25 16:28 Sputum, Expectorated/Coughed Respiratory Culture - Preliminary Presumptive C albicans 01/29/25 08:10 Blood Culture (Wb) - Anticubital Right Blood Culture - Preliminary No growth in 48 hours. 01/29/25 08:05 Blood Culture (Wb) - Left Forearm Blood Culture - Preliminary No growth in 48 hours. 01/29/25 15:00 Wound - Open/Non-Healing Wound Skin and Soft Tissue MRSA/MSSA (PCR - Final Staphylococcus aureus 01/29/25 11:25 Mucosa - Nasopharyngeal Respiratory Panel (PCR) - Final 01/29/25 12:40 Nasal Secretion MRSA (PCR) - Final Meth. resistant Staph. aureus 01/29/25 13:25 Urine Catheter - Campbell Legionella Antigen - Final 01/29/25 13:25 Urine Catheter - Campbell Streptococcus pneumoniae Antigen (M - Final 01/29/25 08:05 Mucosa - Nose SARS-CoV-2, Influenza & RSV (PCR) - Final Goal Trough Goal Trough: 15-20 mcg/mL Pharmacy Plan for Drug Dosing Pharmacy Plan for Drug Dosing: Pharmacy Service will continue to monitor and adjust dosing as required. TROUGH 21.8 @ 5.5 HOURS. GIVE DOSE AND DRAW TROUGH PRIOR TO NEXT DOSE THIS TROUGH WAS 1.5 HOURS EARLY AND LAST DOSE WAS 30MIN LATE. Follow-Up Labs Follow-Up Labs: Trough: Vancomycin Date/Time Labs Ordered Labs to be done on [date and time ordered]: 02/01 @ 5244
[2025-02-01] VITALS (12 sets, daily range): BP systolic 129–147; BP diastolic 62–76; PULSE 90–111; RESP 12–26; TEMP 2.8–37.1; O2SAT 93–99; BMI 47.2
--- NOTE | 2025-02-01 01:10 | CPS ---
Pt states he is not yet ready to go to sleep on BIPAP.
[2025-02-01] MEDS: HYDROmorphone 0.5 MG/0.5 ML SYRINGE IV ×2 (02:24→06:32)
[2025-02-01] MEDS: Piperacil/Tazobactam 3.375 GM in 0.9% Normal Saline (50mL MB+) 50 ML IV (06:31)
[2025-02-01] MEDS: 0.9% Saline Lock 10 ML Syringe IV (06:32)
[2025-02-01] MEDS: Polyethylene Glycol 3350 17 GM PACKET PO ×2 (06:32→14:24)
[2025-02-01 06:50] LABS: Hematocrit 29.2 % (40-54); Hemoglobin 8.3 g/dL (13.0-16.5); Immature Granulocytes Count 0.040 X10^3/uL (0.0-0.0); Mean Corp Hgb Conc 28.4 g/dL (32-36); Mean Corpuscular Volume 77.5 fL (80-94); Mean Platelet Vol. 8.5 fl (6.2-12.0); NRBC Flagged by Analyzer 0 % (0-5); POSITIVE MORPHOLOGY YES; Platelet Count 430 K/mm3 (150-450); RBC Distribution Width CV 22.2 % (11.6-14.6); RBC Distribution Width SD 59.3 fl (35.1-43.9); Red Blood Count 3.77 M/mm3 (4.6-6.2); White Blood Count 9.7 K/mm3 (4.4-11.0)
[2025-02-01 07:08] LABS: Anion Gap 12 (5-15); BUN 11 mg/dL (4-19); BUN/Creat Ratio 17.7 RATIO (10-20); Calcium,Total 8.6 mg/dL (7.6-11.0); Carbon Dioxide 29.8 mmol/L (21.0-32.0); Chloride 96 mmol/L (98-108); Estimated Creatinine Clearance 189.77 ml/min (50-250); Glucose 210 mg/dL (70-99); Potassium 3.9 mmol/L (3.3-5.1)
[2025-02-01 07:12] LABS: Vancomycin, Trough Level 18.7 ug/mL (5.0-15.0)
[2025-02-01 07:18] LABS: Differential Indicated SCAN CRITERIA MET
--- NOTE | 2025-02-01 07:22 | PCM.PN.INT ---
Assessment & Plan Assessment/Plan (1) Acute on chronic respiratory failure with hypoxia and hypercapnia: PLAN: Plan RECOMMENDATIONS: 1. Continue to wean supplemental oxygen to maintain saturation is 88 to 92%. 2. BiPAP therapy with naps and nightly. 3. Continue empiric antimicrobials to complete 7 days of therapy. 4. Continue to monitor H&H daily. Transfuse if hemoglobin drops below 7 g/dL. 5. Continue local wound care, given decubitus ulcer on presentation. 6. Continue diuretics, as tolerated by hemodynamics and renal function. 7. The patient remains medically stable for transfer out of the ICU. Will sign off at this time. Please call with any additional questions. IMPRESSIONS: 1. Acute on chronic combined respiratory failure Appears to be secondary to dense lower lobe consolidation noted on CT imaging of the chest. There was no evidence of pulmonary embolism. The patient does have a baseline oxygen requirement of 4 L/min with questionable compliance with PAP therapy. For now, supplemental oxygen will be continued to maintain saturations 88 to 92%. Will plan to continue empiric antimicrobials along with scheduled diuretics, as tolerated by hemodynamics and renal function. 2. Acute on chronic anemia in the setting of bleeding decubitus ulcer The patient was recently hospitalized with anemia related to a bleeding decubitus ulcer. Recommend continuing to monitor H&H and transfuse if hemoglobin drops below 7 g/dL. Continue to hold systemic anticoagulation. 3. Obstructive sleep apnea/alveolar hypoventilation secondary to obesity Continue BiPAP support with naps and nightly. 4. History of paraplegia related to L1 injury/chronic pain syndrome/morbid obesity Complicates care, management, recovery and prognosis. Continue supportive measures as noted above. CODE STATUS: Full code (confirmed with patient) This note was generated with [employer] dictation software. It may contain incorrect words, spelling, and punctuation that were not noted in checking the note before signing. Subjective Subjective The patient was seen and examined at the bedside this morning. Events from the last 24 hours have been reviewed. The patient is currently afebrile, hemodynamically stable and maintaining appropriate oxygen saturations on 4 L/min via nasal cannula. The patient reported compliance with BiPAP therapy overnight. White blood cell count is normal. Hemoglobin and platelet count are stable. Creatinine is within normal limits. Objective Data Objective Data The patient's most recent lab work, culture data and imaging studies have all been personally reviewed. Wound culture is currently demonstrating growth of Staphylococcus aureus. Vital Signs: Vital Signs Temp Pulse Resp BP Pulse Ox O2 Del Method O2 Flow Rate 37.1 F L 96 26 H 139/66 H 94 Nasal Cannula 4 02/01/25 03:45 02/01/25 06:41 02/01/25 06:41 02/01/25 03:45 02/01/25 06:41 02/01/25 04:00 02/01/25 04:00 FiO2 45 02/01/25 06:41 Oxygen Flow Rate (L/min) 4 Oxygen Delivery Method Nasal Cannula Weight: 319 lb 10.724 oz Body Mass Index (BMI) 47.2 Intake & Output: Intake and Output for Last 24 Hours 01/30/25 01/31/25 02/01/25 23:59 23:59 23:59 Intake Total 2173.33 / 2173.33 1910 / 1910 50 / 50 Output Total 5325 / 7325 8100 / 75365 3475 / 3475 Balance -3151.67 / -5151.67 -6190 / -8965 -3425 / -3425 Lab / Micro Data Attestation: I reviewed the patient's lab results. 02/01/25 06:35 02/01/25 06:35 Labs: Laboratory Results - last 24 hr 01/31/25 08:05: WBC 7.5, RBC 3.60 L, Hgb 8.0 L, Hct 27.9 L, MCV 77.5 L, MCH 22.2 L, MCHC 28.7 L D, RDW Std Deviation 57.7 H, RDW Coeff of Mary 21.2 H, Plt Count 399, MPV 8.7, Immature Gran % (Auto) 0.400, Neut % (Auto) 70.8 H, Lymph % (Auto) 15.7 L, [place] % (Auto) 7.5, Eos % (Auto) 4.8, Baso % (Auto) 0.8, Absolute Neuts (auto) 5.3, Absolute Lymphs (auto) 1.17, Nucleated RBC % 0, Polychromasia 1+, Anisocytosis 2+, Sodium 138, Potassium 3.8, Chloride 94 L, Carbon Dioxide 32.4 H, Anion Gap 11, BUN 11, Creatinine 0.62 L, Estim Creat Clear Calc 186.86, Est GFR (MDRD) Non-Af 111, BUN/Creatinine Ratio 17.5, Glucose 208 H, Calcium 8.7 01/31/25 10:34: POC Glucose 244 H 01/31/25 15:30: POC Glucose 197 H 01/31/25 21:10: Vancomycin Trough 21.8 H 01/31/25 21:44: POC Glucose 238 H 02/01/25 06:35: WBC 9.7, RBC 3.77 L, Hgb 8.3 L, Hct 29.2 L, MCV 77.5 L, MCH 22.0 L, MCHC 28.4 L, RDW Std Deviation 59.3 H, RDW Coeff of Mary 22.2 H, Plt Count 430, MPV 8.5, Immature Gran % (Auto) 0.400, Neut % (Auto) 66.0, Lymph % (Auto) 18.5 L, [place] % (Auto) 10.2 H, Eos % (Auto) 4.4, Baso % (Auto) 0.5, Absolute Neuts (auto) 6.4, Absolute Lymphs (auto) 1.80, Nucleated RBC % 0, Sodium 137, Potassium 3.9, Chloride 96 L, Carbon Dioxide 29.8, Anion Gap 12, BUN 11, Creatinine 0.61 L, Estim Creat Clear Calc 189.77, Est GFR (MDRD) Non-Af 112, BUN/Creatinine Ratio 17.7, Glucose 210 H, Calcium 8.6, Vancomycin Trough 18.7 H Micro: Microbiology 01/29/25 16:28 Sputum, Expectorated/Coughed Gram Stain - Final 01/29/25 16:28 Sputum, Expectorated/Coughed Respiratory Culture - Preliminary Presumptive C albicans 01/29/25 08:10 Blood Culture (Wb) - Anticubital Right Blood Culture - Preliminary No growth in 48 hours. 01/29/25 08:05 Blood Culture (Wb) - Left Forearm Blood Culture - Preliminary No growth in 48 hours. 01/29/25 15:00 Wound - Open/Non-Healing Wound Skin and Soft Tissue MRSA/MSSA (PCR - Final Staphylococcus aureus 01/29/25 11:25 Mucosa - Nasopharyngeal Respiratory Panel (PCR) - Final 01/29/25 12:40 Nasal Secretion MRSA (PCR) - Final Meth. resistant Staph. aureus 01/29/25 13:25 Urine Catheter - Campbell Legionella Antigen - Final 01/29/25 13:25 Urine Catheter - Campbell Streptococcus pneumoniae Antigen (M - Final 01/29/25 08:05 Mucosa - Nose SARS-CoV-2, Influenza & RSV (PCR) - Final ABG Data ABG results: ABG 01/29/25 08:53 Specimen Type ART Sample Site R Brach pH 7.37 Bicarbonate Actual 39.1 H Total CO2 41 Base Excess 14 H O2 Saturation 91 L O2 % 65.0 ABG pCO2 68.5 H* ABG pO2 66 L O2 Delivery Device Airvo Vent Mode Not entered Crit Call To/Read Back Yes Blood Gas Notified Whom Dr. Thompson Blood Gas Notified Time 904 Clinical Comments 55lpm Radiography Diagnostic Testing: Radiology Impression Chest CTA 01/30/25 08:04 IMPRESSION: No evidence of pulmonary embolism. Dense consolidation in the right lower lobe as well as patchy infiltrate in the left lower lobe. Minimal pleural effusions. Reading Location: [facility] Venous Doppler Study 01/30/25 08:04 Interpretation Summary Deep veins of the lower extremities are bilaterally patent and compressible segmentally. There is no evidence of deep vein thrombosis on either side. Valvular competence appears intact within the proximal deep venous systems bilaterally. The right common femoral vein was not visualized. The great saphenous veins appear bilaterally patent and compressible segmentally. Pulsatile flow was noted in the deep venous system bilaterally, which may be indicative of elevated central venous pressure (i.e. congestive heart failure, pulmonary hypertension, etc.). Clinical correlation is advised. Ordering Physician: Tez Tuttle Referring Physician: Wilma Thayer Performed By: Katiuska Bailey, RVT Rhythm Strip Rhythm Strip: Sinus Rhythm Rate: 99 Ectopy: None Physical Exam Const alert, oriented x3 and no apparent distress Constitutional Narrative: Morbidly obese. General Appearance: cooperative HEENT normocephalic, head/scalp atraumatic and moist oral mucous membranes Eyes PERRL, EOMs intact bilaterally and conjunctivae normal Neck supple General: trachea midline Chest inspection of chest normal Resp Auscultation: diminished lung sounds; Negative for rales, rhonchi or wheezes Cardio regular rate and regular rhythm GI soft to palpation and non-tender Extremity no clubbing, cyanosis or edema Extremity Narrative: Wrapped lower extremities Skin Skin Narrative: Decubitus ulcer noted on presentation. Neuro CN's II-XII intact bilaterally Psych cooperative and affect normal Charges/Coding Visit Charges Inpatient E&M: 65933 Subs Hosp L2
--- NOTE | 2025-02-01 07:32 | PCM.RX.CS ---
Consult Antibiotic Management Pharmacy has been consulted to manage selected antibiotic: Vancomycin Type of Intervention Type of Consult: Follow-up Labs Labs: Sodium 137 mmol/L (133-145) 02/01/25 06:35 Potassium 3.9 mmol/L (3.3-5.1) 02/01/25 06:35 Chloride 96 mmol/L (98-108) L 02/01/25 06:35 Carbon Dioxide 29.8 mmol/L (21.0-32.0) 02/01/25 06:35 Anion Gap 12 (5-15) 02/01/25 06:35 BUN 11 mg/dL (4-19) 02/01/25 06:35 Creatinine 0.61 mg/dL (0.70-1.20) L 02/01/25 06:35 Est GFR (MDRD) Non-Af 112 (>60) 02/01/25 06:35 BUN/Creatinine Ratio 17.7 RATIO (10-20) 02/01/25 06:35 Glucose 210 mg/dL (70-99) H 02/01/25 06:35 Vancomycin Trough 18.7 ug/mL (5.0-15.0) H 02/01/25 06:35 Random Vancomycin 15.0 ug/mL (0.0-15.0) 01/30/25 21:32 Microbiology Microbiology: Microbiology 01/29/25 16:28 Sputum, Expectorated/Coughed Gram Stain - Final 01/29/25 16:28 Sputum, Expectorated/Coughed Respiratory Culture - Preliminary Presumptive C albicans 01/29/25 08:10 Blood Culture (Wb) - Anticubital Right Blood Culture - Preliminary No growth in 48 hours. 01/29/25 08:05 Blood Culture (Wb) - Left Forearm Blood Culture - Preliminary No growth in 48 hours. 01/29/25 15:00 Wound - Open/Non-Healing Wound Skin and Soft Tissue MRSA/MSSA (PCR - Final Staphylococcus aureus 01/29/25 11:25 Mucosa - Nasopharyngeal Respiratory Panel (PCR) - Final 01/29/25 12:40 Nasal Secretion MRSA (PCR) - Final Meth. resistant Staph. aureus 01/29/25 13:25 Urine Catheter - Campbell Legionella Antigen - Final 01/29/25 13:25 Urine Catheter - Campbell Streptococcus pneumoniae Antigen (M - Final 01/29/25 08:05 Mucosa - Nose SARS-CoV-2, Influenza & RSV (PCR) - Final Pharmacy Plan for Drug Dosing Pharmacy Plan for Drug Dosing: VANCOMYCIN LEVEL RECEIVED Current Vancomycin Dose: 1000MG IV Q8H Number of Doses Received: 4 (OF CURRENT REGIMEN) Vancomycin Level: 18.7 Hours Since Last Dose: 8HRS Renal Function: SCR 0.61/ CRCL >100 ML/MIN Renal Function Trend: STABLE Lab/Micro: WCX GROWING STAPH SPP, SCX GROWING MRSA Vancomycin Plan/Comments: patient had a trough drawn which resulted in a value of 18.7 (goal 15-20). patient's trough is within desired goal range. Continue vancomycin 1000mg IV Q8hr and will recheck a trough in 24hrs to assess dosing at that time. Pending Level: 02/02/25 @9653 Pharmacy Service will continue to monitor and adjust dosing as required.
[2025-02-01 07:47] LABS: Anisocytosis 2+
--- NOTE | 2025-02-01 08:44 | PN.HOSP_ITS ---
Reason for Visit Chief Complaint: Hypoxia on 15 L, shortness of breath Objective Data Objective Data Vital Signs: Vital Signs Temp Pulse Resp BP Pulse Ox O2 Del Method O2 Flow Rate 37.1 F L 96 26 H 139/66 H 94 Nasal Cannula 4 02/01/25 03:45 02/01/25 06:41 02/01/25 06:41 02/01/25 03:45 02/01/25 06:41 02/01/25 04:00 02/01/25 04:00 FiO2 45 02/01/25 06:41 Oxygen Flow Rate (L/min) 4 Oxygen Delivery Method Nasal Cannula Weight: 319 lb 10.724 oz Body Mass Index (BMI) 47.2 Intake & Output: Intake and Output for Last 24 Hours 01/30/25 01/31/25 02/01/25 23:59 23:59 23:59 Intake Total 2173.33 / 2173.33 0 / 1909 50 / 50 Output Total 5325 / 7325 8100 / 12987 3475 / 3475 Balance -3151.67 / -5151.67 -6190 / -8965 -3425 / -3425 Lab / Micro Data 02/01/25 06:35 02/01/25 06:35 Labs: Laboratory Results - last 24 hr 01/31/25 08:05: WBC 7.5, Polychromasia 1+, Anisocytosis 2+, Sodium 138, Potassium 3.8, Chloride 94 L, Carbon Dioxide 32.4 H, Anion Gap 11, BUN 11, C reatinine 0.62 L, Estim Creat Clear Calc 186.86, Est GFR (MDRD) Non-Af 111, BUN/Creatinine Ratio 17.5, Glucose 208 H, Calcium 8.7 01/31/25 10:34: POC Glucose 244 H 01/31/25 15:30: POC Glucose 197 H 01/31/25 21:10: Vancomycin Trough 21.8 H 01/31/25 21:44: POC Glucose 238 H 02/01/25 06:35: WBC 9.7, RBC 3.77 L, Hgb 8.3 L, Hct 29.2 L, MCV 77.5 L, MCH 22.0 L, MCHC 28.4 L, RDW Std Deviation 59.3 H, RDW Coeff of Mary 22.2 H, Plt Count 430, MPV 8.5, Immature Gran % (Auto) 0.400, Neut % (Auto) 66.0, Lymph % (Auto) 18.5 L, [place] % (Auto) 10.2 H, Eos % (Auto) 4.4, Baso % (Auto) 0.5, Absolute Neuts (auto) 6.4, Absolute Lymphs (auto) 1.80, Nucleated RBC % 0, Anisocytosis 2+, Sodium 137, Potassium 3.9, Chloride 96 L, Carbon Dioxide 29.8, Anion Gap 12, BUN 11, Creatinine 0.61 L, Estim Creat Clear Calc 189.77, Est GFR (MDRD) Non-Af 112, BUN/Creatinine Ratio 17.7, Glucose 210 H, Calcium 8.6, Vancomycin Trough 18.7 H Micro: Microbiology 01/29/25 16:28 Sputum, Expectorated/Coughed Gram Stain - Final 01/29/25 16:28 Sputum, Expectorated/Coughed Respiratory Culture - Final Presumptive C albicans 01/29/25 08:10 Blood Culture (Wb) - Anticubital Right Blood Culture - Preliminary No growth in 48 hours. 01/29/25 08:05 Blood Culture (Wb) - Left Forearm Blood Culture - Preliminary No growth in 48 hours. 01/29/25 15:00 Wound - Open/Non-Healing Wound Skin and Soft Tissue MRSA/MSSA (PCR - Final Staphylococcus aureus 01/29/25 11:25 Mucosa - Nasopharyngeal Respiratory Panel (PCR) - Final 01/29/25 12:40 Nasal Secretion MRSA (PCR) - Final Meth. resistant Staph. aureus 01/29/25 13:25 Urine Catheter - Campbell Legionella Antigen - Final 01/29/25 13:25 Urine Catheter - Campbell Streptococcus pneumoniae Antigen (M - Final 01/29/25 08:05 Mucosa - Nose SARS-CoV-2, Influenza & RSV (PCR) - Final Rhythm Strip Rhythm Strip: Sinus Rhythm Rate: 99 Ectopy: None Physical Exam Narrative Seen and examined. Complain of back pain at the sacrococcygeal region about 8/10 intensity. Rest of the pain in other parts of her body is controlled. On 6 L of oxygen large sacral decubitus ulcer. Physical exam General: Alert, Oriented x3, Cooperative. BMI 51.0 kg/m? HEENT: Atraumatic, PERRLA, EOMI, Normocephalic. Oral: No Gingival or Mucosal Lesions/ Ulcerations Neck: Thick and wide neck. Supple, JVD could not be appreciated. negative Carotid Bruits Chest wall/Lungs: Air entry diminished in bilateral lung bases. No crepitation/rhonchi Cardiovascular: Mild sinus tachycardia, soft, no murmur gallop or rub Abdomen: Colostomy with everted bowel loops. Bowel sounds Present, Soft, Non Tender, soft to liquid stool present : Chronic indwelling catheter No renal angle tenderness. No suprapubic tenderness. Extremities: Mild dependent edema , Capillary Refill Less than 3 Seconds Skin: Large decubitus ulcer lower back, sacrococcygeal region. Multiple decubitus ulcer right and left ischium, sacrum, right buttock, posterior scrotum and left lateral lower leg. Was oozing blood Musculoskeletal: Paraplegic with contracture at hip and knee joints. Neurological: No sensation below waist level. Cranial nerves were intact. Psych/Mental Status: Flat affect Assessment & Plan Assessment/Plan (1) Acute respiratory failure with hypoxia and hypercapnia: PLAN: Plan This is 59-year-old gentleman is being admitted for hypoxia and shortness of breath for 1 day 1. Acute on chronic hypoxic and hypercarbic respiratory failure possibly due to CHF exacerbation/pneumonia: Patient is being admitted in ICU. Currently on Airvo. Chest x-ray daily reviewed and shows bilateral pleural effusion right more than left and congestion. It is reported as hypoventilation with atelectasis in the lower lungs. There is suspicion of pneumonia too. Senior Php Software Developer consulted. Patient on Airvo. 01/30: Discussed with receiving team member. CTA chest is ordered to rule out PE. Wound culture positive of MRSA including nasal screen. Urinary antigens are negative. Respiratory panel negative. Continue broad-spectrum antibiotic, vancomycin and Zosyn 01/31: CTPA negative for PE but shows dense consolidation in the right lower lobe and patchy on the left lower lobe. Air entry severely diminished in bilateral lung bases. Incentive spirometry and PEP encouraged. Venous duplex also negative for DVT 02/01: Patient currently on 6 L of oxygen. Baseline is 4 L of oxygen and BiPAP during naps and at night. Patient complained of back pain mainly attributes to the bed. Wants to be discharged back to the intermediate Bilateral lower lobes consolidation/complicated pneumonia: Chest x-ray suboptimal quality because of body habitus. Pneumonia workup ordered. Patient got 1 dose of IV ceftriaxone and Zithromax. Antibiotic broadened to IV vancomycin and Zosyn. 02/01: ID consulted for titration down antibiotic. Suspicion of possible aspiration because of location of the consolidation/pneumonia 2. Acute on chronic severe anemia present since admission: Hemoglobin dropped from 8.1 on 01/19, 7.0 on 01/29 to 6.9 today. Tenets of PRBC transfusion has been ordered. Probably bleeding from the sacrococcygeal wound. Wound care consulted. 01/31: Posttransfusion H&H 8.3/30%. 2 units PRBC were transfused. Labs pending for today morning. 02/01: H&H 8.3/29.2%. 3. CHF exacerbation: Started on IV furosemide 40 mg IV twice daily. Echo from 10/13/2024 demonstrated EF of 55 to 60%, technically difficult patient is on furosemide and currently remains compensated 4. Stage IV chronic decubitus ulcer ? Patient is managed at the wound care center plan . He follows wound center Dr. Christian. Wound care consulted. As per ER physician wound is healing. 5 History of L1 injury with paraplegic status complicated by chronic decubitus ulcers, Chronic Indwelling Campbell with Chronic pain syndrome: Nursing care, frequent change of positioning, dressing change. PT OT and case management consulted. 6 Chronic bilateral pulmonary embolism: Apixaban recently resumed 4 days ago. During previous admission apixaban held because of acute on chronic severe blood loss anemia. 01/30: CTPA is ordered. Apixaban was interrupted because of severe anemia during previous admission and after discharge. 01/31 as mentioned above CTPA was negative. Patient has large decubitus ulcer in the back which was oozing. Highlylikely to bleed on resumption of Eliquis. Risk of DVT/PE and bleeding explained to the patient 02/01: Discussed again about the anticoagulation. We agreed for holding the anticoagulants, the most effective/thornton middle path of bleeding and coagulation will be to resume anticoagulant after 1 week of holding it 7 Diabetes mellitus type 2: Glucose is 218 BMP. Accu-Chek before meals and at bedtime with Humalog sliding scale coverage and hypoglycemia protocol. 1800 ADA diet. Home insulin regimen continued 8 Morbid obesity: BMI 51.0 kg/m?. No significant change compared to previous hospital admission. 9. Obstructive sleep apnea ? BiPAP therapy at night 10. Essential hypertension ? Patient blood pressure is in normal range. DVT prophylaxis ? Pharmacological prophylaxis contraindicated because of severe anemia. Patient getting PRBC transfusion. Apixaban on hold. Living will/advanced directive/end of life care: Patient does not have living will or advanced directive. He does not religated power of attorney lawyer for health. His sister is next of kin. After discussion of benefits/risks procedures involved with full code, DNR CC arrest and DNR CC, the patient opted for full code. Patient does want artificial life support including intubation, tube feed, ventilator and/chest compression, central venous catheter, vasopressor and DC shock if needed Charges/Coding Visit Charges Inpatient E&M: 63584 [facility] Hosp L3
[2025-02-01] MEDS: Fluticasone 0.05% 1 SPRAY NASAL.SRY NASAL (08:54)
[2025-02-01] MEDS: Insulin Glargine-YFGN 100 UNIT/ML Pen 20 UNIT SC (08:55)
--- NOTE | 2025-02-01 09:48 | PCM.TXEXTCAR ---
Diet Diet Order/Speech Therapy: INPATIENT Hospital Diet / Speech Therapy Order(s) 01/30/25 11:30 Diet: Cardiac: Calorie-Controlled Food consistency:: Regular Liquid Consistency:: Regular/Thin Dietary Modifications:: Consistent Carbohydrate How many daily calories?: 2000 calorie Routine Orders/Code Status Suppository Type: Dulcolax 10mg Suppository Frequency: Daily PRN Routine Lab Work: CBC (In 3 days) and BMP (In 1 week) DC O2, CPAP, BIPAP needs Home O2 Discharge instructions: Yes Type of respiratory needs?: Oxygen Oxygen frequency: Continuous Continuous oxygen liters per minute: 4 Wound(s) left lateral lower leg: Wound Type: Stasis Ulcer Dressing Change: Aquacel Extra posterior scrotum: Wound Type: Pressure Injury Dressing Change: Dakins moistened gauze right ischium: Wound Type: Pressure Injury Dressing Change: Adaptic left ischium: Wound Type: Pressure Injury Dressing Change: Adaptic sacrum: Wound Type: Pressure Injury Dressing Change: Dakins moistened gauze left buttock: Wound Type: Pressure Injury Dressing Change: Adaptic right buttock: Wound Type: Pressure Injury Dressing Change: Adaptic Therapies Extremity Affected:: Bilateral Lower Physical Therapy: Eval and Treat Occupational Therapy: Eval and Treat Speech Therapy: Eval and Treat Problem/Diagnosis (1) Acute respiratory failure with hypoxia and hypercapnia: Status: Acute Code(s): J96.01 - Acute respiratory failure with hypoxia; J96.02 - Acute respiratory failure with hypercapnia (2) Pneumonia: Status: Acute Code(s): J18.9 - Pneumonia, unspecified organism Plan This is 59-year-old gentleman is being admitted for hypoxia and shortness of breath for 1 day 1. Acute on chronic hypoxic and hypercarbic respiratory failure possibly due to CHF exacerbation/pneumonia: Patient is being admitted in ICU. Currently on Airvo. Chest x-ray daily reviewed and shows bilateral pleural effusion right more than left and congestion. It is reported as hypoventilation with atelectasis in the lower lungs. There is suspicion of pneumonia too. Deck Engine Operator consulted. Patient on Airvo. 01/30: Discussed with corporate auditor. CTA chest is ordered to rule out PE. Wound culture positive of MRSA including nasal screen. Urinary antigens are negative. Respiratory panel negative. Continue broad-spectrum antibiotic, vancomycin and Zosyn 01/31: CTPA negative for PE but shows dense consolidation in the right lower lobe and patchy on the left lower lobe. Air entry severely diminished in bilateral lung bases. Incentive spirometry and PEP encouraged. Venous duplex also negative for DVT 02/01: Patient currently on 6 L of oxygen. Baseline is 4 L of oxygen and BiPAP during naps and at night. Patient complained of back pain mainly attributes to the bed. Wants to be discharged back to the detention Bilateral lower lobes consolidation/complicated pneumonia: Chest x-ray suboptimal quality because of body habitus. Pneumonia workup ordered. Patient got 1 dose of IV ceftriaxone and Zithromax. Antibiotic broadened to IV vancomycin and Zosyn. 02/01: ID consulted for titration down antibiotic. Suspicion of possible aspiration because of location of the consolidation/pneumonia 2. Acute on chronic severe anemia present since admission: Hemoglobin dropped from 8.1 on 01/19, 7.0 on 01/29 to 6.9 today. Tenets of PRBC transfusion has been ordered. Probably bleeding from the sacrococcygeal wound. Wound care consulted. 01/31: Posttransfusion H&H 8.3/30%. 2 units PRBC were transfused. Labs pending for today morning. 02/01: H&H 8.3/29.2%. 3. CHF exacerbation: Started on IV furosemide 40 mg IV twice daily. Echo from 10/13/2024 demonstrated EF of 55 to 60%, technically difficult patient is on furosemide and currently remains compensated 4. Stage IV chronic decubitus ulcer ? Patient is managed at the wound care center plan . He follows wound center Dr. Christian. Wound care consulted. As per ER physician wound is healing. 5 History of L1 injury with paraplegic status complicated by chronic decubitus ulcers, Chronic Indwelling Campbell with Chronic pain syndrome: Nursing care, frequent change of positioning, dressing change. PT OT and case management consulted. 6 Chronic bilateral pulmonary embolism: Apixaban recently resumed 4 days ago. During previous admission apixaban held because of acute on chronic severe blood loss anemia. 01/30: CTPA is ordered. Apixaban was interrupted because of severe anemia during previous admission and after discharge. 01/31 as mentioned above CTPA was negative. Patient has large decubitus ulcer in the back which was oozing. Highlylikely to bleed on resumption of Eliquis. Risk of DVT/PE and bleeding explained to the patient 02/01: Discussed again about the anticoagulation. We agreed for holding the anticoagulants, the most effective/thornton middle path of bleeding and coagulation will be to resume anticoagulant after 1 week of holding it 7 Diabetes mellitus type 2: Glucose is 218 BMP. Accu-Chek before meals and at bedtime with Humalog sliding scale coverage and hypoglycemia protocol. 1800 ADA diet. Home insulin regimen continued 8 Morbid obesity: BMI 51.0 kg/m?. No significant change compared to previous hospital admission. 9. Obstructive sleep apnea ? BiPAP therapy at night 10. Essential hypertension ? Patient blood pressure is in normal range. DVT prophylaxis ? Pharmacological prophylaxis contraindicated because of severe anemia. Patient getting PRBC transfusion. Apixaban on hold. Living will/advanced directive/end of life care: Patient does not have living will or advanced directive. He does not religated power of ip technology transactions attorney for health. His sister is next of kin. After discussion of benefits/risks procedures involved with full code, DNR CC arrest and DNR CC, the patient opted for full code. Patient does want artificial life support including intubation, tube feed, ventilator and/chest compression, central venous catheter, vasopressor and DC shock if needed Allergies/Procedures Done in Hospital Allergies adhesive tape Adverse Reaction (Severe, Verified 01/29/25 08:05) rash and rapid skin breakdown Type of Care/Length of Stay Estimated LOS: Convalescent Care Less Than 30 days Type of Care Needed: Skilled Rehab Potential: Good Prognosis: Good Additional Orders/Day of Discharge Day of Discharge: 02/01/25 Dietary and Speech Recommendations Dietitian Recommendations/Changes: Will change diet to 2000 calorie cardiac/consistent carbohydrate. Will add PO Wiliam BID w/ medpass to support wound healing. Fluid restriction as needed per physician once PO improves at meals. Additional ONS as needed if appetite remains depressed. Discharge Plan Admission Admit Date/Time: 01/29/25 10:27 Attending Provider: Louis Fuentes Primary Care Provider: Wilma Thayer Consulting Providers: Jewel Cm Discharge Orders/Prescriptions Prescriptions: New amoxicillin-pot clavulanate 875-125 mg tablet 1 tab PO BID 5 Days Qty: 10 0RF Continued fluticasone propionate [Flonase Allergy Relief] 50 mcg/actuation spray,suspension 1 spray INTRANASAL DAILY Patient Comments: takes in once in awhile Rx Instructions: administer into each nostril naloxone 0.4 mg/mL syringe 0.4 mg IM Q5M PRN (Reason: opioid reversal) Rx Instructions: NTExceed 10 mg total dose/episode ondansetron 4 mg tablet,disintegrating 4 mg PO Q4H PRN (Reason: nausea) metformin 500 mg tablet 1,000 mg PO BID duloxetine 30 mg capsule,delayed release(DR/EC) 90 mg PO QDAY dextrose [Glucose Gel] 40 % gel 10 g PO Q15M PRN (Reason: hypoglycemia) Rx Instructions: until symptoms of low blood sugar are controlled sodium chloride 0.65 % mist 2 spray intranasal Q2H PRN (Reason: dry nasal passages) ascorbic acid (vitamin C) 500 mg tablet 500 mg PO DAILY pantoprazole 40 mg tablet,delayed release (DR/EC) 40 mg PO DAILY alum-mag hydroxide-simeth [Mag-Al Plus Extra Strength] 400-400-40 mg/5 mL Suspension 30 ml PO Q6H PRN PRN (Reason: Gastric Burning) Qty: 0 0RF carvedilol 12.5 mg Tablet 12.5 mg PO BIDCM Qty: 0 0RF amlodipine 10 mg Tablet 10 mg PO DAILY Qty: 0 0RF diphenhydramine HCl [Banophen] 25 mg Capsule 25 mg PO TID PRN PRN (Reason: Itching) Qty: 0 0RF polysaccharide iron complex [Ferrex 150] 150 mg iron Capsule 150 mg PO DAILY sennosides-docusate sodium [Stool Softener-Stimulant Laxat] 8.6-50 mg Tablet 2 tab PO BID albuterol sulfate 2.5 mg /3 mL (0.083 %) solution for nebulization 2.5 mg inhalation BID Rx Instructions: And q4hr prn guaifenesin [Mucinex] 600 mg Tablet Extended Release 12hr 600 mg PO BID 7 Days Qty: 0 0RF atorvastatin 40 mg tablet 40 mg PO DAILY azithromycin 250 mg tablet 250 mg PO MOWEFR Tab-A-Milla Multivitamin w-iron 18-400 mg-mcg tablet 1 tab PO DAILY potassium chloride 20 mEq tablet,ER particles/crystals 20 meq PO DAILY cholecalciferol (vitamin D3) 125 mcg (5,000 unit) tablet 125 mcg PO DAILY Trulicity 4.5 mg/0.5 mL pen injector 4.5 mg SUBCUT MO Patient Comments: [NO ORIGINAL SIG] morphine 30 mg tablet extended release 30 mg PO Q12H 2 Days Qty: 4 0RF linezolid 600 mg tablet 600 mg PO BID oxycodone 10 mg tablet 10 mg PO Q6H Probiotic Acidophilus (4 strn) 1 billion cell- 250 mg tablet 1 tab PO DAILY (DME) OXYGEN - Supplemental ([facility] INFORMATIONAL USE ONLY) Gas See Rx Instructions .ROUTE Patient Comments: 3-4LPM CONTINUOUS AND BLED INTO BIPAP. O2 AND BIPAP ARE BEING PROVIDED BY PA Rx Instructions: As directed (DME) BIPAP -Bilevel Positive Airway Pressure ([facility] INFORMATIONAL USE ONLY) Device See Rx Instructions .ROUTE Patient Comments: PROVIDED BY PA, THINKS IT IS Rx Instructions: As directed methocarbamol 500 mg tablet 1,000 mg PO TID polyethylene glycol 3350 [ClearLax] 17 gram/dose powder 17 g PO TID Patient Comments: for constipation with the colostomy now scheduled not prn insulin glargine [Lantus U-100 Insulin] 100 unit/mL solution 20 unit subcut DAILY insulin lispro 100 unit/mL solution See Rx Instructions subcut .COMPLEX Rx Instructions: subcutaneously; if 251-350=2u 351-400=4u loratadine [Allerclear] 10 mg tablet 10 mg PO DAILY Rx Instructions: am insulin lispro [Humalog KwikPen Insulin] 100 unit/mL Insulin Pen See Protocol subcut TID Protocol: 6. Sliding Scale Insulin Custom Condition: mg/dl range Dose/Route: Number of Units Condition: 251-350 Dose/Route: 2 Condition: >350 Dose/Route: 4 Protocol Text: Custom Sliding Scale Rx Instructions: 12 units before meals nystatin 100,000 unit/gram powder 1 applic topical BID fenofibrate 54 mg tablet 54 mg PO QHS simethicone [Gas Relief (simethicone)] 80 mg tablet,chewable 80 mg PO Q4H PRN (Reason: gas) acetic acid 0.25 % solution 30 ml irrigation BID Patient Comments: [NO ORIGINAL SIG] Dakin's Solution 0.25 % solution 1 applic topical BID artificial tear(lkalp-cok-ygi) [GenTeal Tears Moderate] 0.1-0.3-0.2 % drops 1 drp EACH EYE BID PRN (Reason: dry eyes) acetaminophen 325 mg capsule 650 mg PO Q6H glipizide 2.5 mg tablet extended release 24hr 2.5 mg PO DAILY Changed furosemide 40 mg tablet 40 mg PO BID 30 Days Qty: 60 0RF Patient Comments: 40 mg in the am, 20 mg at hs Held Eliquis 5 mg tablet 5 mg PO BID Hold Instructions: Hold Eliquis for 3 more days and consider restarting lower dose 2.5 mg twice daily and if he tolerates then increase to 5 mg. Discontinued furosemide 20 mg tablet 20 mg PO QHS Referrals / Follow Up: Wilma Thayer DO [Primary Care Provider, Family Practice] Jewel Cm MD [Med Staff - Active Staff, Infectious Disease] - Within 2 Weeks Disposition Disposition (needs filled in before D/C Order can be placed): [facility]
[2025-02-01] MEDS: Vancomycin HCl 1,000 MG in 0.9% Normal Saline (250mL Bag) 250 ML 250 MG IV (10:13)
[2025-02-01] MEDS: Potassium Chloride Oral Tablet 20 MEQ PO (10:21)
[2025-02-01] MEDS: morphine SR 15 MG Tablet PO (10:22)
[2025-02-01] MEDS: Juven (unflavored) Packet 1 PACKET PO ×2 (10:22→16:52)
--- NOTE | 2025-02-01 10:22 | PCM.CONS.GEN ---
Assessment & Plan Assessment/Plan (1) Acute respiratory failure with hypoxia and hypercapnia: (2) Pneumonia: PLAN: Overall much improved hypoxia. Sputum cx only with some yeast. has suprapubic catheter with moderate pyuria and polymicrobial growth on ucx. Chronic wounds present with with wound cxs (+) but he reports these have been stable. No fever, normal wbc. Urine antigens neg. On empiric vanc/zosyn, will continue for now given clinical improvement and prelim cx results. Will follow, thank you HPI Consult Data Date of Consult: 02/01/25 HPI Narrative Reason for Consultation: pneumonia HPI Narrative: MELISSA ELIAS, is a 59 M with h/o paraplegia, ostomy, suprapubic catheter, on 3-4L O2 at [facility], follows at wound center for chronic decub ulcer. Reports ulcers have been improving. Developed acute onset dyspnea and hypoxia, sent to ED, admitted to icu. On vanc/zosyn, feeling better, O2 much improved. No abd pain, no change in urine. No fever or chills. Denies any coughing/choking on food or drink. Full ROS performed and neg except as noted above. [facility] Medical History MRSA (methicillin resistant staph aureus) culture positive MDR Acinetobacter baumannii infection VRE (vancomycin resistant enterococcus) culture positive Decubitus ulcer of sacral region, stage 4 Lymphedema BATOOL treated with BiPAP Abscess of back Constipation Pressure ulcer of sacral region Chronic indwelling Campbell catheter Blood loss anemia Clot retention of urine Pressure injury, unstageable, with eschar Bilateral pulmonary embolism Rhabdomyolysis Community acquired pneumonia Hypoglycemia Acute osteomyelitis of spine Former tobacco use Paraplegia Cellulitis of leg without foot, right Anemia BMI greater than 40 Type 2 diabetes mellitus HTN (hypertension) H/o back surgery Home Medications ?Medication ?Instructions ?Recorded ?Last Taken ?Type fluticasone propionate 50 1 spray intranasal DAILY shortness 03/03/20 Unknown History mcg/actuation nasal of breath spray,suspension (Flonase Allergy Relief) apixaban 5 mg tablet (Eliquis) 5 mg PO BID 07/29/23 08/31/23 History methocarbamol 500 mg tablet 1,000 mg PO TID cramps 07/29/23 08/31/23 History polyethylene glycol 3350 17 17 g PO TID constipation 07/29/23 07/29/23 History gram/dose oral powder (ClearLax) pantoprazole 40 mg tablet,delayed 40 mg PO DAILY stomach 08/31/23 08/31/23 History release aluminum-mag hydroxide-simethicone 30 ml PO Q6H PRN PRN Gastric 09/13/23 Unknown Rx 400 mg-400 mg-40 mg/5 mL oral susp Burning #0 mL (Mag-Al Plus Extra Strength) amlodipine 10 mg tablet 10 mg PO DAILY #0 tabs 09/13/23 Unknown Rx carvedilol 12.5 mg tablet 12.5 mg PO BIDCM #0 tabs 09/13/23 Unknown Rx diphenhydramine HCl 25 mg capsule 25 mg PO TID PRN PRN Itching #0 09/13/23 Unknown Rx (Banophen) caps polysaccharide iron complex 150 mg 150 mg PO DAILY supplement 10/15/23 Unknown History iron capsule (Ferrex) sennosides 8.6 mg-docusate sodium 2 tab PO BID Constipation 10/15/23 Unknown History 50 mg tablet (Stool Softener-Stimulant Laxative) insulin lispro 100 unit/mL See Protocol subcut TID blood 10/23/23 Unknown History subcutaneous pen (Humalog KwikPen sugars (U-100) Insulin) loratadine 10 mg tablet 10 mg PO DAILY allergies 10/23/23 Unknown History (Allerclear) albuterol sulfate 2.5 mg/3 mL 2.5 mg inhalation BID wheezing 10/25/23 Unknown History (0.083 %) solution for nebulization ascorbic acid (vitamin C) 500 mg 500 mg PO DAILY supplement 03/26/24 Unknown History tablet dextrose 40 % oral gel (Glucose 10 g PO Q15M PRN hypoglycemia 03/26/24 Unknown History Gel) naloxone 0.4 mg/mL injection 0.4 mg IM Q5M PRN opioid reversal 03/26/24 Unknown History syringe ondansetron 4 mg disintegrating 4 mg PO Q4H PRN nausea 03/26/24 Unknown History tablet sodium chloride 0.65 % nasal mist 2 spray intranasal Q2H PRN dry 03/26/24 Unknown History nasal passages duloxetine 30 mg capsule,delayed 90 mg PO QDAY mood 07/18/24 10/28/24 History release insulin glargine 100 unit/mL 20 unit subcut DAILY diabetes 07/18/24 Unknown History subcutaneous solution (Lantus mellitus type 2 U-100 Insulin) insulin lispro 100 unit/mL See Rx Instructions subcut 07/18/24 Unknown History subcutaneous solution .COMPLEX diabetes metformin 500 mg tablet 1,000 mg PO BID diabetes 07/18/24 Unknown History fenofibrate 54 mg tablet 54 mg PO QHS cholesterol 08/17/24 Unknown History nystatin 100,000 unit/gram topical 1 applic topical BID rednes 08/17/24 Unknown History powder acetaminophen 325 mg capsule 650 mg PO Q6H pain 10/12/24 Unknown History acetic acid 0.25 % irrigation 30 ml irrigation BID suprapubic 10/12/24 Unknown History solution cath artificial 1 drp EACH EYE BID PRN dry eyes 10/12/24 Unknown History tears(hfxnvsu-kxrjwprb-dxqruif) 0.1 %-0.3 %-0.2 % eye drops (GenTeal Tears Moderate) glipizide 2.5 mg tablet, extended 2.5 mg PO DAILY diabetes 10/12/24 Unknown History release 24 hr simethicone 80 mg chewable tablet 80 mg PO Q4H PRN gas 10/12/24 Unknown History (Gas Relief (simethicone)) sodium hypochlorite 0.25 % 1 applic topical BID wound 10/12/24 Unknown History solution (Dakin's Solution) guaifenesin 600 mg tablet, 600 mg PO BID 7 days #0 tabs 11/01/24 Unknown Rx extended release 12 hr (Mucinex) atorvastatin 40 mg tablet 40 mg PO DAILY 01/18/25 Unknown History azithromycin 250 mg tablet 250 mg PO MOWEFR pneumonia 01/18/25 Unknown History cholecalciferol (vitamin D3) 125 125 mcg PO DAILY 01/18/25 Unknown History mcg (5,000 unit) tablet dulaglutide 4.5 mg/0.5 mL 4.5 mg subcut MO 01/18/25 Unknown History subcutaneous pen injector (Trulicity) furosemide 20 mg tablet 20 mg PO QHS 01/18/25 Unknown History furosemide 40 mg tablet 40 mg PO DAILY 01/18/25 Unknown History multivitamin-ferrous 1 tab PO DAILY 01/18/25 Unknown History fumarate-folic acid 18 mg-400 mcg tablet (Tab-A-Milla Multivitamin w-iron) potassium chloride 20 mEq 20 meq PO DAILY 01/18/25 Unknown History tablet,extended release(part/cryst) morphine 30 mg tablet,extended 30 mg PO Q12H 2 days #4 tabs 01/19/25 Unknown Rx release BIPAP -Bilevel Positive Airway 01/29/25 Unknown History Pressure ([facility] INFORMATIONAL USE ONLY) L.acidophilus-L.bulgar-B.bifid-S.thermoph 1 tab PO DAILY 01/29/25 Unknown History 1 billion cell-250 mg tablet (Probiotic Acidophilus (4 strain)) OXYGEN - Supplemental ([facility] 01/29/25 Unknown History INFORMATIONAL USE ONLY) linezolid 600 mg tablet 600 mg PO BID 01/29/25 Unknown History oxycodone 10 mg tablet 10 mg PO Q6H pain 01/29/25 Unknown History Allergy/AdvReac Type Severity Reaction Status Date / Time adhesive tape AdvReac Severe rash and Verified 01/29/25 08:05 rapid skin breakdown Family History Mother Hypertension Hypotension Diabetes Arthritis Father Hypertension Hypotension Heart disease Status post double vessel coronary artery bypass angina Arthritis Grandfather Prostate cancer Grandmother Uterine cancer Surgical History History of hip replacement Colostomy status Hx of spinal surgery H/O sinus surgery Social History housing: half-way current occupational status: employed and retired Smoking Status: Former smoker alcohol intake: never substance use type: does not use do you feel safe at home: Yes Physical Exam Const alert, oriented x3 and no apparent distress General Appearance: cooperative HEENT normocephalic and head/scalp atraumatic Eyes PERRL and EOMs intact bilaterally Neck supple and No nodes Resp normal air movement and clear to auscultation bilaterally Auscultation: diminished lung sounds Cardio regular rate and regular rhythm GI soft to palpation, non-tender and non-distended Extremity General Extremity: edema Skin Skin Narrative: reviewed wound photos Neuro CN's II-XII intact bilaterally Lab / Micro Data Attestation: I reviewed the patient's lab results. 02/01/25 06:35 02/01/25 06:35 Labs: Laboratory Results - last 24 hr 01/31/25 10:34: POC Glucose 244 H 01/31/25 15:30: POC Glucose 197 H 01/31/25 21:10: Vancomycin Trough 21.8 H 01/31/25 21:44: POC Glucose 238 H 02/01/25 06:35: WBC 9.7, RBC 3.77 L, Hgb 8.3 L, Hct 29.2 L, MCV 77.5 L, MCH 22.0 L, MCHC 28.4 L, RDW Std Deviation 59.3 H, RDW Coeff of Mary 22.2 H, Plt Count 430, MPV 8.5, Immature Gran % (Auto) 0.400, Neut % (Auto) 66.0, Lymph % (Auto) 18.5 L, Vilas % (Auto) 10.2 H, Eos % (Auto) 4.4, Baso % (Auto) 0.5, Absolute Neuts (auto) 6.4, Absolute Lymphs (auto) 1.80, Nucleated RBC % 0, Anisocytosis 2+, Sodium 137, Potassium 3.9, Chloride 96 L, Carbon Dioxide 29.8, Anion Gap 12, BUN 11, Creatinine 0.61 L, Estim Creat Clear Calc 189.77, Est GFR (MDRD) Non-Af 112, BUN/Creatinine Ratio 17.7, Glucose 210 H, Calcium 8.6, Vancomycin Trough 18.7 H 02/01/25 08:51: POC Glucose 263 H Micro: Microbiology 01/29/25 13:25 Urine Catheter - Campbell Urine Culture - Preliminary Staphylococcus aureus GPC Poss Enterococcus sp Gram negative sharif GNR Poss Pseudomonas sp 01/29/25 16:28 Sputum, Expectorated/Coughed Gram Stain - Final 01/29/25 16:28 Sputum, Expectorated/Coughed Respiratory Culture - Final Presumptive C albicans 01/29/25 08:10 Blood Culture (Wb) - Anticubital Right Blood Culture - Preliminary No growth in 48 hours. 01/29/25 08:05 Blood Culture (Wb) - Left Forearm Blood Culture - Preliminary No growth in 48 hours. Rhythm Strip Rhythm Strip: Sinus Rhythm Rate: 99 Ectopy: None
[2025-02-01] MEDS: Lactobacillis Acidophilus 1 CAP PO (10:27)
--- NOTE | 2025-02-01 13:00 | PCM.DC.SUM ---
Providers Date of Admission: 01/29/25 Date of Discharge: 02/01/25 Primary Care Physician: Dr. 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 Comment: Reason for Consult:: decubitus ulcer 02/01/25 08:43 Consult: Infectious Disease Routine Consulting Provider: Jewel Cm Reason for Consult: complicated pneumonia, on 4-6l/m EMERGENT Consult: No Notified: Yes Date Notified: 02/01/25 Time Notified: 08:43 Method of Notification: Text Reason For Visit: CHF EXA; B/L EFFUSION Diagnosis Discharge Diagnosis (1) Acute respiratory failure with hypoxia and hypercapnia: Status: Acute Code(s): J96.01 - Acute respiratory failure with hypoxia; J96.02 - Acute respiratory failure with hypercapnia (2) Pneumonia: Status: Acute Code(s): J18.9 - Pneumonia, unspecified organism Plan This is 59-year-old gentleman is being admitted for hypoxia and shortness of breath for 1 day 1. Acute on chronic hypoxic and hypercarbic respiratory failure possibly due to CHF exacerbation/pneumonia: Patient is being admitted in ICU. Currently on Airvo. Chest x-ray daily reviewed and shows bilateral pleural effusion right more than left and congestion. It is reported as hypoventilation with atelectasis in the lower lungs. There is suspicion of pneumonia too. Supervisor Order Takers consulted. Patient on Airvo. 01/30: Discussed with english instructor. CTA chest is ordered to rule out PE. Wound culture positive of MRSA including nasal screen. Urinary antigens are negative. Respiratory panel negative. Continue broad-spectrum antibiotic, vancomycin and Zosyn 01/31: CTPA negative for PE but shows dense consolidation in the right lower lobe and patchy on the left lower lobe. Air entry severely diminished in bilateral lung bases. Incentive spirometry and PEP encouraged. Venous duplex also negative for DVT 02/01: Patient currently on 6 L of oxygen. Baseline is 4 L of oxygen and BiPAP during naps and at night. Patient complained of back pain mainly attributes to the bed. Wants to be discharged back to the group home Patient on baseline oxygenation monitor. Home dose of furosemide increased to 40 mg p.o. twice daily. Continue incentive spirometry and PEP for 1 week Bilateral lower lobes consolidation/complicated pneumonia: Chest x-ray suboptimal quality because of body habitus. Pneumonia workup ordered. Patient got 1 dose of IV ceftriaxone and Zithromax. Antibiotic broadened to IV vancomycin and Zosyn. 02/01: ID consulted for titration down antibiotic. Suspicion of possible aspiration because of location of the consolidation/pneumonia. Discussed with ID. He advised 5 more days of oral Augmentin. Patient on linezolid for MRSA wound infection. 2. Acute on chronic severe anemia present since admission: Hemoglobin dropped from 8.1 on 01/19, 7.0 on 01/29 to 6.9 today. Tenets of PRBC transfusion has been ordered. Probably bleeding from the sacrococcygeal wound. Wound care consulted. 01/31: Posttransfusion H&H 8.3/30%. 2 units PRBC were transfused. Labs pending for today morning. 02/01: H&H 8.3/29.2%. 3. CHF exacerbation: Started on IV furosemide 40 mg IV twice daily. Echo from 10/13/2024 demonstrated EF of 55 to 60%, technically difficult patient is on furosemide and currently remains compensated 4. Stage IV chronic decubitus ulcer ? Patient is managed at the wound care center plan . He follows wound center Dr. Christian. Wound care consulted. As per ER physician wound is healing. 5 History of L1 injury with paraplegic status complicated by chronic decubitus ulcers, Chronic Indwelling Campbell with Chronic pain syndrome: Nursing care, frequent change of positioning, dressing change. PT OT and case management consulted. 6 Chronic bilateral pulmonary embolism: Apixaban recently resumed 4 days ago. During previous admission apixaban held because of acute on chronic severe blood loss anemia. 01/30: CTPA is ordered. Apixaban was interrupted because of severe anemia during previous admission and after discharge. 01/31 as mentioned above CTPA was negative. Patient has large decubitus ulcer in the back which was oozing. Highlylikely to bleed on resumption of Eliquis. Risk of DVT/PE and bleeding explained to the patient 02/01: Discussed again about the anticoagulation. We agreed for holding the anticoagulants, the most effective/thornton middle path of bleeding and coagulation will be to resume anticoagulant after 1 week of holding it 7 Diabetes mellitus type 2: Glucose is 218 BMP. Accu-Chek before meals and at bedtime with Humalog sliding scale coverage and hypoglycemia protocol. 1800 ADA diet. Home insulin regimen continued 8 Morbid obesity: BMI 51.0 kg/m?. No significant change compared to previous hospital admission. 9. Obstructive sleep apnea ? BiPAP therapy at night 10. Essential hypertension ? Patient blood pressure is in normal range. DVT prophylaxis ? Pharmacological prophylaxis contraindicated because of severe anemia. Patient getting PRBC transfusion. Apixaban on hold. Discharge medication reconciliation done. Discharge follow-up instructions completed. Discharge process discussed with the patient and all questions were answered to patient's satisfaction. Follow with PCP in 1 to 2 weeks Total time spent, exact 35 minutes on discharge meds reconciliation, examination, coordination of care with nurses and ancillary staff, review of imaging and blood test and discussion with the patient on follow-up instructions. Living will/advanced directive/end of life care: Patient does not have living will or advanced directive. He does not religated power of health care attorney for health. His sister is next of kin. After discussion of benefits/risks procedures involved with full code, DNR CC arrest and DNR CC, the patient opted for full code. Patient does want artificial life support including intubation, tube feed, ventilator and/chest compression, central venous catheter, vasopressor and DC shock if needed Medications at Discharge Home Medications fluticasone propionate 50 mcg/actuation nasal spray,suspension (Flonase Allergy Relief) 1 spray intranasal DAILY shortness of breath 03/03/20 apixaban 5 mg tablet (Eliquis) 5 mg PO BID 07/29/23 Held on 02/01/25. Instructions: Hold Eliquis for 3 more days and consider restarting lower dose 2.5 mg twice daily and if he tolerates then increase to 5 mg. methocarbamol 500 mg tablet 1,000 mg PO TID cramps 07/29/23 polyethylene glycol 3350 17 gram/dose oral powder (ClearLax) 17 g PO TID constipation 07/29/23 pantoprazole 40 mg tablet,delayed release 40 mg PO DAILY stomach 08/31/23 aluminum-mag hydroxide-simethicone 400 mg-400 mg-40 mg/5 mL oral susp (Mag-Al Plus Extra Strength) 30 ml PO Q6H PRN PRN Gastric Burning #0 mL 09/13/23 amlodipine 10 mg tablet 10 mg PO DAILY #0 tabs 09/13/23 carvedilol 12.5 mg tablet 12.5 mg PO BIDCM #0 tabs 09/13/23 diphenhydramine HCl 25 mg capsule (Banophen) 25 mg PO TID PRN PRN Itching #0 caps 09/13/23 polysaccharide iron complex 150 mg iron capsule (Ferrex) 150 mg PO DAILY supplement 10/15/23 sennosides 8.6 mg-docusate sodium 50 mg tablet (Stool Softener-Stimulant Laxative) 2 tab PO BID Constipation 10/15/23 insulin lispro 100 unit/mL subcutaneous pen (Humalog KwikPen (U-100) Insulin) See Protocol subcut TID blood sugars 10/23/23 loratadine 10 mg tablet (Allerclear) 10 mg PO DAILY allergies 10/23/23 albuterol sulfate 2.5 mg/3 mL (0.083 %) solution for nebulization 2.5 mg inhalation BID wheezing 10/25/23 ascorbic acid (vitamin C) 500 mg tablet 500 mg PO DAILY supplement 03/26/24 dextrose 40 % oral gel (Glucose Gel) 10 g PO Q15M PRN hypoglycemia 03/26/24 naloxone 0.4 mg/mL injection syringe 0.4 mg IM Q5M PRN opioid reversal 03/26/24 ondansetron 4 mg disintegrating tablet 4 mg PO Q4H PRN nausea 03/26/24 sodium chloride 0.65 % nasal mist 2 spray intranasal Q2H PRN dry nasal passages 03/26/24 duloxetine 30 mg capsule,delayed release 90 mg PO QDAY mood 07/18/24 insulin glargine 100 unit/mL subcutaneous solution (Lantus U-100 Insulin) 20 unit subcut DAILY diabetes mellitus type 2 07/18/24 insulin lispro 100 unit/mL subcutaneous solution See Rx Instructions subcut .COMPLEX diabetes 07/18/24 metformin 500 mg tablet 1,000 mg PO BID diabetes 07/18/24 fenofibrate 54 mg tablet 54 mg PO QHS cholesterol 08/17/24 nystatin 100,000 unit/gram topical powder 1 applic topical BID rednes 08/17/24 acetaminophen 325 mg capsule 650 mg PO Q6H pain 10/12/24 acetic acid 0.25 % irrigation solution 30 ml irrigation BID suprapubic cath 10/12/24 artificial tears(wuuvrxm-sytficem-kjcxvnj) 0.1 %-0.3 %-0.2 % eye drops (GenTeal Tears Moderate) 1 drp EACH EYE BID PRN dry eyes 10/12/24 glipizide 2.5 mg tablet, extended release 24 hr 2.5 mg PO DAILY diabetes 10/12/24 simethicone 80 mg chewable tablet (Gas Relief (simethicone)) 80 mg PO Q4H PRN gas 10/12/24 sodium hypochlorite 0.25 % solution (Dakin's Solution) 1 applic topical BID wound 10/12/24 guaifenesin 600 mg tablet, extended release 12 hr (Mucinex) 600 mg PO BID 7 days #0 tabs 11/01/24 atorvastatin 40 mg tablet 40 mg PO DAILY 01/18/25 azithromycin 250 mg tablet 250 mg PO MOWEFR pneumonia 01/18/25 cholecalciferol (vitamin D3) 125 mcg (5,000 unit) tablet 125 mcg PO DAILY 01/18/25 dulaglutide 4.5 mg/0.5 mL subcutaneous pen injector (Trulicity) 4.5 mg subcut MO 01/18/25 multivitamin-ferrous fumarate-folic acid 18 mg-400 mcg tablet (Tab-A-Milla Multivitamin w-iron) 1 tab PO DAILY 01/18/25 potassium chloride 20 mEq tablet,extended release(part/cryst) 20 meq PO DAILY 01/18/25 morphine 30 mg tablet,extended release 30 mg PO Q12H 2 days #4 tabs 01/19/25 BIPAP -Bilevel Positive Airway Pressure ([facility] INFORMATIONAL USE ONLY) 01/29/25 L.acidophilus-L.bulgar-B.bifid-S.thermoph 1 billion cell-250 mg tablet (Probiotic Acidophilus (4 strain)) 1 tab PO DAILY 01/29/25 OXYGEN - Supplemental ([facility] INFORMATIONAL USE ONLY) 01/29/25 linezolid 600 mg tablet 600 mg PO BID 01/29/25 oxycodone 10 mg tablet 10 mg PO Q6H pain 01/29/25 amoxicillin 875 mg-potassium clavulanate 125 mg tablet 1 tab PO BID 5 days #10 tabs 02/01/25 furosemide 40 mg tablet 40 mg PO BID 30 days #60 tabs 02/01/25 Physical Exam Narrative Please see progress note of the same date for physical exam findings. Weight / BMI Weight Weight: 319 lb 10.724 oz Body Mass Index (BMI) 47.2 ABG / Lab / Microbiology Data 02/01/25 06:35 02/01/25 06:35 Laboratory: Laboratory Results - last 24 hr 01/31/25 15:30: POC Glucose 197 H 01/31/25 21:10: Vancomycin Trough 21.8 H 01/31/25 21:44: POC Glucose 238 H 02/01/25 06:35: WBC 9.7, RBC 3.77 L, Hgb 8.3 L, Hct 29.2 L, MCV 77.5 L, MCH 22.0 L, MCHC 28.4 L, RDW Std Deviation 59.3 H, RDW Coeff of Mary 22.2 H, Plt Count 430, MPV 8.5, Immature Gran % (Auto) 0.400, Neut % (Auto) 66.0, Lymph % (Auto) 18.5 L, Ellis % (Auto) 10.2 H, Eos % (Auto) 4.4, Baso % (Auto) 0.5, Absolute Neuts (auto) 6.4, Absolute Lymphs (auto) 1.80, Nucleated RBC % 0, Anisocytosis 2+, Sodium 137, Potassium 3.9, Chloride 96 L, Carbon Dioxide 29.8, Anion Gap 12, BUN 11, Creatinine 0.61 L, Estim Creat Clear Calc 189.77, Est GFR (MDRD) Non-Af 112, BUN/Creatinine Ratio 17.7, Glucose 210 H, Calcium 8.6, Vancomycin Trough 18.7 H 02/01/25 08:51: POC Glucose 263 H 02/01/25 11:37: POC Glucose 221 H Microbiology: Microbiology 01/29/25 13:25 Urine Catheter - Campbell Urine Culture - Preliminary Staphylococcus aureus GPC Poss Enterococcus sp Gram negative sahrif GNR Poss Pseudomonas sp 01/29/25 16:28 Sputum, Expectorated/Coughed Gram Stain - Final 01/29/25 16:28 Sputum, Expectorated/Coughed Respiratory Culture - Final Presumptive C albicans 01/29/25 08:10 Blood Culture (Wb) - Anticubital Right Blood Culture - Preliminary No growth in 48 hours. 01/29/25 08:05 Blood Culture (Wb) - Left Forearm Blood Culture - Preliminary No growth in 48 hours. 01/29/25 15:00 Wound - Open/Non-Healing Wound Skin and Soft Tissue MRSA/MSSA (PCR - Final Staphylococcus aureus 01/29/25 11:25 Mucosa - Nasopharyngeal Respiratory Panel (PCR) - Final 01/29/25 12:40 Nasal Secretion MRSA (PCR) - Final Meth. resistant Staph. aureus 01/29/25 13:25 Urine Catheter - Campbell Legionella Antigen - Final 01/29/25 13:25 Urine Catheter - Campbell Streptococcus pneumoniae Antigen (M - Final 01/29/25 08:05 Mucosa - Nose SARS-CoV-2, Influenza & RSV (PCR) - Final D/C Instructions DC O2, CPAP, BIPAP Needs Home O2 Discharge instructions: Yes Type of respiratory needs?: Oxygen Oxygen frequency: Continuous Continuous oxygen liters per minute: 4 DC home with Oxygen: Yes Home O2 MD Review: I have reviewed the oxygen testing, and the patient qualifies for home oxygen equipment and portability. The patient is mobile in the home and the community. Meaningful Use Info Meaningful Use Meaningful Use Diagnoses (Choose all that apply): None applicable Discharge Plan Admission Admit Date/Time: 01/29/25 10:27 Primary Reason for Your Visit: Acute Respiratory Failure with Hypoxia Attending Provider: Louis Fuentes Primary Care Provider: Wilma Thayer Consulting Providers: Jewel Cm Discharge Orders/Prescriptions Prescriptions: New amoxicillin-pot clavulanate 875-125 mg tablet 1 tab PO BID 5 Days Qty: 10 0RF Continued fluticasone propionate [Flonase Allergy Relief] 50 mcg/actuation spray,suspension 1 spray INTRANASAL DAILY Patient Comments: takes in once in awhile Rx Instructions: administer into each nostril naloxone 0.4 mg/mL syringe 0.4 mg IM Q5M PRN (Reason: opioid reversal) Rx Instructions: NTExceed 10 mg total dose/episode ondansetron 4 mg tablet,disintegrating 4 mg PO Q4H PRN (Reason: nausea) metformin 500 mg tablet 1,000 mg PO BID duloxetine 30 mg capsule,delayed release(DR/EC) 90 mg PO QDAY dextrose [Glucose Gel] 40 % gel 10 g PO Q15M PRN (Reason: hypoglycemia) Rx Instructions: until symptoms of low blood sugar are controlled sodium chloride 0.65 % mist 2 spray intranasal Q2H PRN (Reason: dry nasal passages) ascorbic acid (vitamin C) 500 mg tablet 500 mg PO DAILY pantoprazole 40 mg tablet,delayed release (DR/EC) 40 mg PO DAILY alum-mag hydroxide-simeth [Mag-Al Plus Extra Strength] 400-400-40 mg/5 mL Suspension 30 ml PO Q6H PRN PRN (Reason: Gastric Burning) Qty: 0 0RF carvedilol 12.5 mg Tablet 12.5 mg PO BIDCM Qty: 0 0RF amlodipine 10 mg Tablet 10 mg PO DAILY Qty: 0 0RF diphenhydramine HCl [Banophen] 25 mg Capsule 25 mg PO TID PRN PRN (Reason: Itching) Qty: 0 0RF polysaccharide iron complex [Ferrex 150] 150 mg iron Capsule 150 mg PO DAILY sennosides-docusate sodium [Stool Softener-Stimulant Laxat] 8.6-50 mg Tablet 2 tab PO BID albuterol sulfate 2.5 mg /3 mL (0.083 %) solution for nebulization 2.5 mg inhalation BID Rx Instructions: And q4hr prn guaifenesin [Mucinex] 600 mg Tablet Extended Release 12hr 600 mg PO BID 7 Days Qty: 0 0RF atorvastatin 40 mg tablet 40 mg PO DAILY azithromycin 250 mg tablet 250 mg PO MOWEFR Tab-A-Milla Multivitamin w-iron 18-400 mg-mcg tablet 1 tab PO DAILY potassium chloride 20 mEq tablet,ER particles/crystals 20 meq PO DAILY cholecalciferol (vitamin D3) 125 mcg (5,000 unit) tablet 125 mcg PO DAILY Trulicity 4.5 mg/0.5 mL pen injector 4.5 mg SUBCUT MO Patient Comments: [NO ORIGINAL SIG] morphine 30 mg tablet extended release 30 mg PO Q12H 2 Days Qty: 4 0RF linezolid 600 mg tablet 600 mg PO BID oxycodone 10 mg tablet 10 mg PO Q6H Probiotic Acidophilus (4 strn) 1 billion cell- 250 mg tablet 1 tab PO DAILY (DME) OXYGEN - Supplemental ([facility] INFORMATIONAL USE ONLY) Gas See Rx Instructions .ROUTE Patient Comments: 3-4LPM CONTINUOUS AND BLED INTO BIPAP. O2 AND BIPAP ARE BEING PROVIDED BY [facility] Rx Instructions: As directed ([facility]) BIPAP -Bilevel Positive Airway Pressure ([facility] INFORMATIONAL USE ONLY) Device See Rx Instructions .ROUTE Patient Comments: PROVIDED BY [facility], THINKS IT IS Rx Instructions: As directed methocarbamol 500 mg tablet 1,000 mg PO TID polyethylene glycol 3350 [ClearLax] 17 gram/dose powder 17 g PO TID Patient Comments: for constipation with the colostomy now scheduled not prn insulin glargine [Lantus U-100 Insulin] 100 unit/mL solution 20 unit subcut DAILY insulin lispro 100 unit/mL solution See Rx Instructions subcut .COMPLEX Rx Instructions: subcutaneously; if 251-350=2u 351-400=4u loratadine [Allerclear] 10 mg tablet 10 mg PO DAILY Rx Instructions: am insulin lispro [Humalog KwikPen Insulin] 100 unit/mL Insulin Pen See Protocol subcut TID Protocol: 6. Sliding Scale Insulin Custom Condition: mg/dl range Dose/Route: Number of Units Condition: 251-350 Dose/Route: 2 Condition: >350 Dose/Route: 4 Protocol Text: Custom Sliding Scale Rx Instructions: 12 units before meals nystatin 100,000 unit/gram powder 1 applic topical BID fenofibrate 54 mg tablet 54 mg PO QHS simethicone [Gas Relief (simethicone)] 80 mg tablet,chewable 80 mg PO Q4H PRN (Reason: gas) acetic acid 0.25 % solution 30 ml irrigation BID Patient Comments: [NO ORIGINAL SIG] Dakin's Solution 0.25 % solution 1 applic topical BID artificial tear([id number]) [GenTeal Tears Moderate] 0.1-0.3-0.2 % drops 1 drp EACH EYE BID PRN (Reason: dry eyes) acetaminophen 325 mg capsule 650 mg PO Q6H glipizide 2.5 mg tablet extended release 24hr 2.5 mg PO DAILY Changed furosemide 40 mg tablet 40 mg PO BID 30 Days Qty: 60 0RF Patient Comments: 40 mg in the am, 20 mg at hs Held Eliquis 5 mg tablet 5 mg PO BID Hold Instructions: Hold Eliquis for 3 more days and consider restarting lower dose 2.5 mg twice daily and if he tolerates then increase to 5 mg. Discontinued furosemide 20 mg tablet 20 mg PO QHS Referrals / Follow Up: Wilma Thayer DO [Primary Care Provider, Family Practice] Jewel Cm MD [Med Staff - Active Staff, Infectious Disease] - Within 2 Weeks Disposition Disposition (needs filled in before D/C Order can be placed): [facility] Facility Charges/Coding Visit Charges Inpatient E&M: 97706 Disch Hosp >30min
--- NOTE | 2025-02-01 13:14 | CASEMGMT ---
Social Work Physician updated that pt is ready for discharge today.? Plan is for pt to return to [facility]; intermediate level of care. DCA notified of discharge; DCA to complete all final arrangements and notifications. Disposition:[facility]; intermediate level of care MAHNAZ Beatty.
--- NOTE | 2025-02-01 13:19 | CASEMGMT ---
Discharge Planning Discharge orders, signed med list, and transport time sent to [facility]. Physicians will transport pt by cot at 3:30p. Nursing, SW, and pt updated. Pt states that he will update his sister. Dipika Bullard DC Planning Asst.
== END 2025-02-01 17:15 | disposition skilled nursing facility (03) | DRG 133 ==
LOC: ED 08:49 → ICU 11:24
PROVIDERS: Internal Medicine Critical Care Medicine; Admitting Provider Internal Medicine; Emergency Provider Emergency Medicine; PCP Family Medicine; Visit Provider Internal Medicine
DX: J96.21 Acute and chronic respiratory failure with hypoxia (principal); I50.33 Acute on chronic diastolic (congestive) heart failure; L89.154 Pressure ulcer of sacral region, stage 4; I5A Non-ischemic myocardial injury (non-traumatic); E66.2 Morbid (severe) obesity with alveolar hypoventilation; G82.20 Paraplegia, unspecified; D62 Acute posthemorrhagic anemia; J18.9 Pneumonia, unspecified organism; E11.9 Type 2 diabetes mellitus without complications; I11.0 Hypertensive heart disease with heart failure; Z93.3 Colostomy status; J96.22 Acute and chronic respiratory failure with hypercapnia; Z68.43 Body mass index [BMI] 50.0-59.9, adult; Z79.4 Long term (current) use of insulin; Z79.01 Long term (current) use of anticoagulants; Z86.711 Personal history of pulmonary embolism; Z79.899 Other long term (current) drug therapy; Z79.84 Long term (current) use of oral hypoglycemic drugs; R79.89 Other specified abnormal findings of blood chemistry; B95.62 Methicillin resistant Staphylococcus aureus infection as the cause of diseases classified elsewhere; Z99.81 Dependence on supplemental oxygen; Z96.649 Presence of unspecified artificial hip joint; Z87.891 Personal history of nicotine dependence
CPT/HCPCS: 36600; 71045; 71275; 80048; 80202; 81001; 82803; 82962; 83605; 83735; 83880; 84484; 85014; 85018; 85025; 86850; 86900; 86901; 86902; 86920; 86922; 87040; 87070; 87077; 87086; 87088; 87184; 87186; 87205; 87449; 87631; 87633; 87640; 87641; 93005; 93970; 94003; 94640; 94660; 94668; 94762; 97802; 99252; 99285; P9016; Q9967; A4216; G0463; J1938

== ENCOUNTER 2025-03-15 09:30 | Outpatient (RCR) | payer MEDICAID, SELFPAY ==
[2025-02-22 10:11] VITALS: BP 131/70; PULSE 104; RESP 20; TEMP 36.8; O2SAT 3
--- NOTE | 2025-02-22 15:15 | PCM.WC.PN ---
History of Present Illness Date of Service: 02/22/25 Chief Complaint: sacral decubitus ulcer History of Wound: Jani is a pleasant 59 yo gentleman that has undergone an unfortunate series of events over the last several years which has left him paraplegic and with a sacral decubitus ulcer and residing in [facility] in [place]. He has been referred to the wound center for evaluation and treatment of his sacral ulcer. He has had a long history of degenerative disc disease of his spine and underwent spine surgery in August 2016 initially and then again in February 2017 due to osteomyelitis and infection of hardware. He underwent further surgery for fusion in December of 2020. He fell in November of 2022 getting up from his chair and then experienced worsening pain, weakness in his legs and ultimately became paraplegic from the waist down. He underwent surgery in [place] in January 2023 at [facility] and then had several complications including pneumonia, pulmonary embolisms and a sacral ulcer that developed into a large defect after multiple surgical debridements and osteomyelitis of his sacrum while at [facility] through the first part 2023 and then attempted to come home to be cared for by his elderly mother which was not successful and he was hospitalized and discharged to [facility] where he had been residing until December 2024 when he transferred to [facility] in [place]. He has undergone many different treatments for his sacral ulcer including wound vac, silver dressings and Dakins and does have an air mattress but it is not an alternating pressure air mattress. The staff does try to offload his ulcer with wedges and pillows but it is difficult due to his chronic back pain. He is currently having the wound dressed with Dakins wet to dry and super absorber dressings twice daily. he reports being on chronic antibiotic treatment and IV treatment over the past year and states that he had MRI that showed resolution of osteomyelitis. (Records unavailable). Subjective Subjective Jani returns today for evaluation and treatment of a sacral decubitus ulcer. He has been tolerating dressing changes with Dakins and super absorber dressings. He transferred care from [facility] to [facility] in [place]. He was hospitalized twice and has had transportation issues so he has not been seen for 1 month. He has been doing ok. Denies fever, chills, erythema. Objective Data Objective Data Vital Signs: Vital Signs Temp Pulse Resp BP Pulse Ox O2 Del Method 98.3 F 104 H 20 H 131/70 H 3 Nasal Cannula 02/22/25 10:11 02/22/25 10:11 02/22/25 10:11 02/22/25 10:11 02/22/25 10:11 02/22/25 10:11 Oxygen Delivery Method Nasal Cannula Physical Exam Const alert, oriented x3, no apparent distress and well nourished Constitutional Narrative: Morbidly obese, middle-aged, white male, sitting up in bed, appears comfortable and nontoxic General Appearance: cooperative and comfortable Nutritional Appearance: morbidly obese HEENT head/scalp atraumatic and moist oral mucous membranes Resp normal respiratory effort, no retractions, no use of accessory muscles and clear to auscultation bilaterally Resp Narrative: Distant due to body habitus Cardio regular rate, regular rhythm, S1 normal heart sound, S2 normal heart sound, no murmurs, no rub, no gallops and no clicks GI normal to inspection, nondistended, normoactive bowel sounds, soft to palpation and non-tender GI Narrative: colostomy present Extremity Extremity Narrative: Chronic bilateral lower extremity edema due to history of paraplegia and lack of movement, no cyanosis or clubbing General Extremity: edema bilateral lower extremity Details: moderate Skin Wounds: wounds noted Wound Narrative: as noted in clinical panel - large sacral ulcer and right ischial ulcer, no visible bone, shearing injury of left ischial area, area is irregular with fringe like skin in areas from repetitive shearing and pressure, friable and bleeding easily, posterior scrotal area with bruising and fringed shearing of tissue and friability Neuro oriented x3, CN's II-XII intact bilaterally, No moves all extremities, No no focal motor deficits and No no sensory deficits noted Neuro Narrative: Bilateral lower extremity flaccidity due to history of L1 injury Speech: speech normal Psych affect normal Psych Narrative: Very pleasant, interacts appropriately Debridement Note Debridement Note Wound debrided: left ischium Laterality: Left Type of Debridement: Excisional debridement Anesthesia Used: 4% Lidocaine Solution Depth: Down to and including healthy tissue and in the subcutaneous layer Percentage of wound debrided: 100 Instrument Used: 5mm curette Severity: Fat Layer Exposed Amount of bleeding with debridement: Moderate Bleeding Controlled with: Pressure and Compression and gauze Patient tolerated procedure: Patient tolerated procedure well Post-Debridement Measurements and Additional Note: Post-Debridement Measurements/Treatment WC - Nurse 1 - General Ulcer Assessment Start: 02/22/25 10:11 Freq: Status: Active Protocol: ELENA Activity Type Activity Date Activity User E-sign Co-sign Detail Recorded Client Recorded Date Recorded By Document 02/22/25 10:11 JONNY [id number] 02/22/25 10:31 DS 02/22/25 10:11 Vital Signs Temperature (97.8 F-99.1 F) 98.3 F Temperature Source Temporal Pulse Rate (60-100) 104 H Pulse Location Monitor Respiratory Rate (12-18) 20 H Respiratory rate source Monitor Pulse Oximetry 3 Oxygen Delivery Method Nasal Cannula Blood Pressure (90/60-120/80) 131/70 H Blood Pressure Mean (mm Hg) 90 History Since Last Visit- (Skip if this is Patient's initial visit) Have you changed medications since your No last visit? Any new allergies or adverse reactions No Had a fall/change in ADL's that may No increase risk of falls Signs or symptoms of abuse and/or No neglect since last visit Have you been in the hospital since your No last visit? Has dressing in place as prescribed Yes Has compression in place as prescribed N/A Has offloadiing in place as prescribed N/A Experienced any changes in pain level or No management Left Footwear No Footwear Right Footwear No Footwear Pain Scale: 0-10 Numeric Is Patient Pain Free? Yes BONITA - Nurse 1 - General Ulcer Measurement Start: 02/22/25 10:11 Freq: Status: Active Protocol: Activity Type Activity Date Activity User E-sign Co-sign Detail Recorded Client Recorded Date Recorded By Document 02/22/25 10:11 DS [id number] 02/22/25 10:31 DS 02/22/25 10:11 Wound Center Nurse 1 #15 LEFT LATERAL LE -Current Size (cm) - Length 0.1 -Current Size (cm) - Width 0.1 -Current Size (cm) - Depth 0.1 -Total Square Cm 0.01 -Date of Last Picture (Recall this 02/22/25 field) -Photo Taken Yes -Tunneling No -Undermining/Tunneling No -Circular Undermining No -Moisture (Trish-wound Skin Appearance) No Abnormality, Assessed -Color (Trish-wound Skin Appearance) Assessed -Temperature (Trish-wound Skin No Abnormality Appearance) (Pt Warm) -Tenderness on Palpation (Trish-wound No Skin Appearance) -Ulcer Cleansing Soap and Water -Foul Odor after Cleansing No -Anesthetic Used 5% Lidocaine Gel #14 Posterior Scrotum -Current Size (cm) - Length 0.1 -Current Size (cm) - Width 0.1 -Current Size (cm) - Depth 0.1 -Total Square Cm 0.01 -Date of Last Picture (Recall this 02/22/25 field) -Photo Taken Yes -Tunneling No -Undermining/Tunneling No -Circular Undermining No -Wound Margin Distinct, Outline Attached -Granulation Amt Medium (34-66%) -Granulation Quality Iaeger -Slough/Fibrin Yes -Necrosis Amt Medium (34-66%) -Necrotic Tissue Type Adherent Slough -Texture (Trish-wound Skin Appearance) Assessed -Moisture (Trish-wound Skin Appearance) Assessed, Maceration -Color (Trish-wound Skin Appearance) Assessed -Temperature (Trish-wound Skin No Abnormality Appearance) (Pt Warm) -Tenderness on Palpation (Trish-wound No Skin Appearance) -Ulcer Cleansing Soap and Water -Foul Odor after Cleansing No -Anesthetic Used 4% Lidocaine Solution -Wound Comment(s) measurements will be taken by Dr. Thayer 3. R ischium -Current Size (cm) - Length 0.1 -Current Size (cm) - Width 0.1 -Current Size (cm) - Depth 0.1 -Total Square Cm 0.01 -Date of Last Picture (Recall this 02/22/25 field) -Photo Taken Yes -Tunneling No -Undermining/Tunneling No -Circular Undermining No -Exudate Amt Medium -Exudate Type Serosanguineous -Wound Margin Distinct, Outline Attached -Granulation Amt Medium (34-66%) -Granulation Quality Iaeger -Slough/Fibrin Yes -Necrosis Amt Medium (34-66%) -Necrotic Tissue Type Adherent Slough -Texture (Trish-wound Skin Appearance) Assessed -Moisture (Trish-wound Skin Appearance) Assessed, Maceration -Color (Trish-wound Skin Appearance) Assessed -Temperature (Rtish-wound Skin No Abnormality Appearance) (Pt Warm) -Tenderness on Palpation (Trish-wound No Skin Appearance) -Ulcer Cleansing Soap and Water -Foul Odor after Cleansing No -Anesthetic Used 4% Lidocaine Solution 2. L ischium -Current Size (cm) - Length 0.1 -Current Size (cm) - Width 0.1 -Current Size (cm) - Depth 0.1 -Total Square Cm 0.01 -Date of Last Picture (Recall this 02/22/25 field) -Photo Taken Yes -Tunneling No -Undermining/Tunneling No -Circular Undermining No -Exudate Amt Medium -Exudate Type Serosanguineous -Wound Margin Distinct, Outline Attached -Granulation Amt Medium (34-66%) -Granulation Quality Iaeger -Slough/Fibrin Yes -Necrosis Amt Medium (34-66%) -Necrotic Tissue Type Adherent Slough -Texture (Trish-wound Skin Appearance) Assessed -Moisture (Trish-wound Skin Appearance) Assessed, Maceration -Color (Trish-wound Skin Appearance) Assessed -Temperature (Trish-wound Skin No Abnormality Appearance) (Pt Warm) -Tenderness on Palpation (Trish-wound No Skin Appearance) -Ulcer Cleansing Soap and Water -Foul Odor after Cleansing No -Anesthetic Used 4% Lidocaine Solution *1. coccyx -Current Size (cm) - Length 0.1 -Current Size (cm) - Width 0.1 -Current Size (cm) - Depth 0.1 -Total Square Cm 0.01 -Date of Last Picture (Recall this 02/22/25 field) -Photo Taken Yes -Exudate Amt Large -Exudate Type Serosanguineous -Granulation Amt Medium (34-66%) -Granulation Quality Iaeger -Slough/Fibrin Yes -Necrosis Amt Medium (34-66%) -Necrotic Tissue Type Adherent Slough -Texture (Trish-wound Skin Appearance) Assessed -Moisture (Trish-wound Skin Appearance) Assessed, Maceration -Color (Trish-wound Skin Appearance) Assessed -Temperature (Trish-wound Skin No Abnormality Appearance) (Pt Warm) -Tenderness on Palpation (Trish-wound No Skin Appearance) -Ulcer Cleansing Soap and Water -Foul Odor after Cleansing No -Anesthetic Used 4% Lidocaine Solution WC - Nurse 2 - General Ulcer CM Notes Start: 02/22/25 10:11 Freq: Status: Active Protocol: Activity Type Activity Date Activity User E-sign Co-sign Detail Recorded Client Recorded Date Recorded By Document 02/22/25 10:41 [id number] 02/22/25 11:17 GM 02/22/25 10:41 Wound Center Nurse 2 #15 LEFT LATERAL LE -Time 10:45 -Correct Patient Yes -Correct Side, Site, Position Yes -Correct Procedure Yes -Procedure Performed Yes -Type of Procedure Debridement -Clinical Debridement Subcutaneous -Tissue Removed Subcutaneous -Post Debridement (cm) - Length 5.0 -Post Debridement (cm) - Width 1.0 -Post Debridement (cm) - Depth 0.2 -Total Square (Post) (cm) 5.00 -Area of Debridement (cm) - Length 5.0 -Area of Debridement (cm) - Width 1.0 -Total Square (Area) (cm) 5.00 -Tunneling No -Undermining/Tunneling No -Circular Undermining No -Wound/Ulcer Outcome Not Healed -Ulcer Cleansing Rinsed/ Irrigated with Saline -Foul Odor after Cleansing No -Bioengineered Tissue No -Bleeding Controlled with Pressure -Treatment Response Procedure Tolerated Well -Offloading No -Debridement - Subq, 1st 20sq cm No #14 Posterior Scrotum -Time 10:58 -Correct Patient Yes -Correct Side, Site, Position Yes 3. R ischium -Time 10:58 -Correct Patient Yes -Correct Side, Site, Position Yes -Correct Procedure Yes -Procedure Performed Yes -Type of Procedure Debridement -Clinical Debridement Muscle / Fascia -Tissue Removed Muscle -Post Debridement (cm) - Length 15.0 -Post Debridement (cm) - Width 7.0 -Post Debridement (cm) - Depth 1.5 -Total Square (Post) (cm) 105.00 -Area of Debridement (cm) - Length 15.0 -Area of Debridement (cm) - Width 7.0 -Total Square (Area) (cm) 105.00 -Tunneling No -Undermining/Tunneling No -Circular Undermining No -Wound/Ulcer Outcome Not Healed -Ulcer Cleansing Wound Cleanser -Foul Odor after Cleansing No -Bioengineered Tissue No -Bleeding Controlled with Pressure -Treatment Response Procedure Tolerated Well -Offloading No -Debridement - Muscle / Fascia, 1st No 20sq cm 2. L ischium -Time 10:59 -Correct Patient Yes -Correct Side, Site, Position Yes -Correct Procedure Yes -Procedure Performed Yes -Type of Procedure Debridement -Clinical Debridement Subcutaneous -Tissue Removed Subcutaneous -Post Debridement (cm) - Length 15.0 -Post Debridement (cm) - Width 3.0 -Post Debridement (cm) - Depth 0.1 -Total Square (Post) (cm) 45.00 -Area of Debridement (cm) - Length 15.0 -Area of Debridement (cm) - Width 3.0 -Total Square (Area) (cm) 45.00 -Tunneling No -Undermining/Tunneling No -Circular Undermining No -Wound/Ulcer Outcome Not Healed -Ulcer Cleansing Rinsed/ Irrigated with Saline -Foul Odor after Cleansing No -Bioengineered Tissue No -Bleeding Controlled with Pressure -Treatment Response Procedure Tolerated Well -Offloading No -Debridement - Subq, 1st 20sq cm Yes -Debridement, SubQ, ea addt'l 20sq cm 2 or part thereof *1. coccyx -Time 10:59 -Correct Patient Yes -Correct Side, Site, Position Yes -Correct Procedure Yes -Procedure Performed Yes -Type of Procedure Debridement -Clinical Debridement Muscle / Fascia -Tissue Removed Muscle -Post Debridement (cm) - Length 10.0 -Post Debridement (cm) - Width 15.0 -Post Debridement (cm) - Depth 0.1 -Total Square (Post) (cm) 150.00 -Area of Debridement (cm) - Length 10.0 -Area of Debridement (cm) - Width 15.0 -Total Square (Area) (cm) 150.00 -Tunneling No -Undermining/Tunneling No -Circular Undermining No -Wound/Ulcer Outcome Not Healed -Ulcer Cleansing Rinsed/ Irrigated with Saline -Foul Odor after Cleansing No -Bioengineered Tissue No -Bleeding Controlled with Pressure -Treatment Response Procedure Tolerated Well -Offloading No -Debridement - Muscle / Fascia, 1st Yes 20sq cm -Debridement, Muscle/Fascia, ea addt'l 12 20sq cm or part thereof Pain Scale: 0-10 Numeric Is Patient Pain Free? Yes WC - Nurse 3 - General Ulcer D/C NN Start: 02/22/25 10:11 Freq: Status: Active Protocol: Activity Type Activity Date Activity User E-sign Co-sign Detail Recorded Client Recorded Date Recorded By Document 02/22/25 11:00 DS [id number] 02/22/25 12:29 DS 02/22/25 11:00 Wound Care Center Nurse 3 #15 LEFT LATERAL LE -Ulcer Cleansing gauze -Primary Dressing Applied Aquacel Extra -Other Dressing nanci wrap -Primary Dressing Covered/Secured with Dry Gauze, Secured with Tape -Aquacel Extra 0 #14 Posterior Scrotum -Primary Dressing Applied Aquacel Extra -Primary Dressing Covered/Secured with Dry Gauze, Secured with Tape -Aquacel Extra 0 3. R ischium -Ulcer Cleansing gauze -Primary Dressing Applied Hysept -Other Dressing abd pad -Primary Dressing Covered/Secured with Dry Gauze, Secured with Tape -Hysept 0 2. L ischium -Ulcer Cleansing gauze -Primary Dressing Applied Aquacel Extra -Primary Dressing Covered/Secured with Dry Gauze, Secured with Tape -Aquacel Extra 1 *1. coccyx -Ulcer Cleansing gauze -Primary Dressing Applied Hysept -Other Dressing abd pad -Primary Dressing Covered/Secured with Dry Gauze, Secured with Tape -Hysept 0 LLE -Compression Wrap Surya Wrap Pain Scale: 0-10 Numeric Is Patient Pain Free? Yes WC - Visit Discharge Discharge Condition Stable Ambulatory Status Wheelchair Transportation Ambulance Additional Wound Wound debrided: right ischium Laterality: Right Wound Grade/Stage: Stage III Type of Debridement: Excisional debridement Anesthesia Used: 4% Lidocaine Solution Depth: Down to and including healthy tissue and in the subcutaneous layer Percentage of wound debrided: 100 Instrument Used: 7mm curette, #15 blade and Forceps Tissue Removed: Yellow slough, devitalized tissue Severity: Fat Layer Exposed Amount of bleeding with debridement: Mild Bleeding Controlled with: Compression and gauze Patient tolerated procedure: Patient tolerated procedure well Additional Wound Wound debrided: coccyx Laterality: Not Applicable Wound Grade/Stage: Stage IV Type of Debridement: Excisional debridement Anesthesia Used: 4% Lidocaine Solution Depth: Down to and including healthy tissue, in the subcutaneous layer and to muscle Percentage of wound debrided: 100 Instrument Used: 7mm curette Tissue Removed: Yellow slough, devitalized tissue Severity: Necrosis of Muscle Amount of bleeding with debridement: Mild Bleeding Controlled with: Compression and gauze Patient tolerated procedure: Patient tolerated procedure well Additional Wound Wound debrided: posterior scrotum Laterality: Not Applicable Wound Grade/Stage: Stage 2 Type of Debridement: Excisional debridement Anesthesia Used: 5% Lidocaine Gel Depth: Down to and including healthy tissue and in the subcutaneous layer Percentage of wound debrided: 100 Instrument Used: 5mm curette Severity: Fat Layer Exposed Amount of bleeding with debridement: Mild Bleeding Controlled with: Compression and gauze Patient tolerated procedure: Patient tolerated procedure well Additional Wound Wound debrided: left lateral calf Laterality: Left Type of Debridement: Excisional debridement Anesthesia Used: 4% Lidocaine Solution and 5% Lidocaine Gel Depth: Down to and including healthy tissue and in the subcutaneous layer Percentage of wound debrided: 100 Instrument Used: 5mm curette Tissue Removed: Yellow slough, devitalized tissue Severity: Fat Layer Exposed Amount of bleeding with debridement: Mild Bleeding Controlled with: Compression and gauze Patient tolerated procedure: Patient tolerated procedure well Assessment/Plan Assessment/Plan (1) Chronic pain: CODE(S): G89.29 - Other chronic pain QUALIFIERS: Chronic pain type: chronic pain syndrome Qualified Code(s): G89.4 - Chronic pain syndrome (2) Hypoxia: CODE(S): R09.02 - Hypoxemia (3) History of paraplegia: CODE(S): Z86.69 - Personal history of other diseases of the nervous system and sense organs (4) Chronic indwelling Campbell catheter: CODE(S): Z97.8 - Presence of other specified devices (5) Type 2 diabetes mellitus: CODE(S): E11.9 - Type 2 diabetes mellitus without complications QUALIFIERS: Diabetes mellitus [facility] insulin use: without terminal gauger supervisor use Diabetes mellitus complication status: with neurologic complications Diabetes mellitus complication detail: with polyneuropathy Qualified Code(s): E11.42 - Type 2 diabetes mellitus with diabetic polyneuropathy (6) Chronic anticoagulation: CODE(S): 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 (7) History of deep vein thrombosis: CODE(S): Z86.718 - Personal history of other venous thrombosis and embolism (8) Decubitus ulcer of sacral region, stage 4: CODE(S): L89.154 - Pressure ulcer of sacral region, stage 4 (9) Decubitus ulcer of left perineal ischial region, stage 2: CODE(S): L89.322 - Pressure ulcer of left buttock, stage 2 (10) Hx of spinal surgery: CODE(S): Z98.890 - Other specified postprocedural states (11) Colostomy status: CODE(S): Z93.3 - Colostomy status (12) HTN (hypertension): CODE(S): I10 - Essential (primary) hypertension QUALIFIERS: Hypertension type: primary hypertension Qualified Code(s): I10 - Essential (primary) hypertension (13) BATOOL treated with BiPAP: CODE(S): G47.33 - Obstructive sleep apnea (adult) (pediatric) (14) Lymphedema: CODE(S): I89.0 - Lymphedema, not elsewhere classified (15) Decubitus ulcer of right ischium, stage 3: CODE(S): L89.313 - Pressure ulcer of right buttock, stage 3 (16) Pressure ulcer of left leg, stage 3: CODE(S): L89.893 - Pressure ulcer of other site, stage 3 PLAN: Plan Debridement performed today in clinic as annotated above. At home wound-care instructions: The patient's ulcers will be washed with antibacterial soap and water and then will use Dakins wet to dry to wound bed and cover with gauze and superabsorber for heavy drainage twice daily. Keep dressing clean and dry. Left ischium will be treated with Aquacel Extra changed twice daily. Left heel and right lateral foot will be padded with heel protectors daily. Left lateral calf will be treated with Aquacel Extra and covered with ABD daily. Off-loading: The patient was instructed to avoid pressure and friction on the affected areas. Reposition every 2 hours at minimum. Avoid prolonged standing and/or dangling of legs. When seated, feet should be elevated at chest level. Continue air mattress. Order has been written for alternating pressure air mattress to assist in offloading pressure to his ulcers. He now has alternating pressure air mattress to assist in offloading. Diet: Patient encouraged to increase protein intake while taking caution to avoid high carbohydrate and/or sugar intake. He is getting Wiliam protein supplement at [facility]. Labs/cultures/imaging: Will obtain previous imaging results. Most recent A1C 7.9% on 07/23/24. Wound culture showed multiple bacteria and he has completed on Flagyl and Cefdinir. IV antibiotic completed on Tuesday. Culture positive for multiple bacteria and VRE and MDR Klebsiella. Will start Flagyl for positive cultures but will hold off on other positive culture results for the time being as these are likely chronic. Will also repeat MRI of his sacrum to evaluate for any changes of bone. Follow-up: Return in 1 week for wound care. Return sooner or report to the emergency room should symptoms worsen, or new symptoms arise. Note: Apptentive speech recognition public accountant software was used to create portions of this document. Sound-alike and misspelled words, as well as other public accountant errors may be contained in the documentation.
--- NOTE | 2025-02-25 10:24 | WC ---
PHOTO-LEFT LATERAL LEG 02/22/25
--- NOTE | 2025-02-25 10:28 | WC ---
[email or web address] 02/22/25
[2025-03-01 10:29] VITALS: BP 132/72; PULSE 96; RESP 20; TEMP 36.1
--- NOTE | 2025-03-01 14:18 | PN.PCM_ITS ---
History of Present Illness Date of Service: 03/01/25 Chief Complaint: sacral decubitus ulcer History of Wound: Jani is a pleasant 59 yo gentleman that has undergone an unfortunate series of events over the last several years which has left him paraplegic and with a sacral decubitus ulcer and residing in [facility] in [place]. He has been referred to the wound center for evaluation and treatment of his sacral ulcer. He has had a long history of degenerative disc disease of his spine and und erwent spine surgery in August 2016 initially and then again in February 2017 due to osteomyelitis and infection of hardware. He underwent further surgery for fusion in December of 2020. He fell in November of 2022 getting up from his chair and then experienced worsening pain, weakness in his legs and ultimately became paraplegic from the waist down. He underwent surgery in [place] in January 2023 at [facility] and then had several complications including pneumonia, pulmonary embolisms and a sacral ulcer that developed into a large defect after multiple surgical debridements and osteomyelitis of his sacrum while at [facility] through the first part 2023 and then attempted to come home to be cared for by his elderly mother which was not successful and he was hospitalized and discharged to [facility] where he had been residing until December 2024 when he transferred to [facility] in [place]. He has undergone many different treatments for his sacral ulcer including wound vac, silver dressings and Dakins and does have an air mattress but it is not an alternating pressure air mattress. The staff does try to offload his ulcer with wedges and pillows but it is difficult due to his chronic back pain. He is currently having the wound dressed with Dakins wet to dry and super absorber dressings twice daily. he reports being on chronic antibiotic treatment and IV treatment over the past year and states that he had MRI that showed resolution of osteomyelitis. (Records unavailable). He transferred care from [facility] to [facility] in [place] in January. Subjective Subjective Jani returns today for evaluation and treatment of a sacral decubitus ulcer. He has been tolerating dressing changes with Dakins and super absorber dressings. He has been doing ok. He denies any increase in drainage or odor. Tolerating dressing changes and they are being done twice daily at [facility]. Denies fever, chills, erythema. Objective Data Objective Data Vital Signs: Vital Signs Temp Pulse Resp BP Pulse Ox O2 Del Method O2 Flow Rate 97 F L 96 20 H 132/72 H 3 Nasal Cannula 4 03/01/25 10:29 03/01/25 10:29 03/01/25 10:29 03/01/25 10:02/22/25 10:11 03/01/25 10:03/01/25 10:29 Oxygen Flow Rate (L/min) 4 Oxygen Delivery Method Nasal Cannula Physical Exam Const alert, oriented x3, no apparent distress and well nourished Constitutional Narrative: Morbidly obese, middle-aged, white male, sitting up in bed, appears comfortable and nontoxic General Appearance: cooperative and comfortable Nutritional Appearance: morbidly obese HEENT head/scalp atraumatic and moist oral mucous membranes Resp normal respiratory effort, no retractions, no use of accessory muscles and clear to auscultation bilaterally Resp Narrative: Distant due to body habitus Cardio regular rate, regular rhythm, S1 normal heart sound, S2 normal heart sound, no murmurs, no rub, no gallops and no clicks GI normal to inspection, nondistended, normoactive bowel sounds, soft to palpation and non-tender GI Narrative: colostomy present Extremity Extremity Narrative: Chronic bilateral lower extremity edema due to history of paraplegia and lack of movement, no cyanosis or clubbing General Extremity: edema bilateral lower extremity Details: moderate Skin Wounds: wounds noted Wound Narrative: as noted in clinical panel - large sacral ulcer and right ischial ulcer, no visible bone, shearing injury of left ischial area, area is irregular with fringe like skin in areas from repetitive shearing and pressure, friable and bleeding easily, left lateral LE ulcer with slough Neuro oriented x3, CN's II-XII intact bilaterally, No moves all extremities, No no focal motor deficits and No no sensory deficits noted Neuro Narrative: Bilateral lower extremity flaccidity due to history of L1 injury Speech: speech normal Psych affect normal Psych Narrative: Very pleasant, interacts appropriately Debridement Note Debridement Note Wound debrided: left ischium Laterality: Left Type of Debridement: Excisional debridement Anesthesia Used: 4% Lidocaine Solution Depth: Down to and including healthy tissue and in the subcutaneous layer Percentage of wound debrided: 100 Instrument Used: 5mm curette Tissue Removed: Yellow slough, devitalized tissue Severity: Fat Layer Exposed Amount of bleeding with debridement: Mild Bleeding Controlled with: Pressure and Compression and gauze Patient tolerated procedure: Patient tolerated procedure well Post-Debridement Measurements and Additional Note: Post-Debridement Measurements/Treatment WC - Nurse 1 - General Ulcer Assessment Start: 02/22/25 10:11 Freq: Status: Active Protocol: ELENA Activity Type Activity Date Activity User E-sign Co-sign Detail Recorded Client Recorded Date Recorded By Document 02/22/25 10:11 DS [id number] 02/22/25 10:31 DS Document 03/01/25 10:29 DS [id number] 03/01/25 10:34 DS 02/22/25 03/01/25 10:11 10:29 WC - Today's Visit Information Type of service Follow-up Visit (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 ) Arrival Mode Wheelchair Transfer Assistance Kelli Lift Patient Identification Verified (Name & Yes ) Patient Requires Transmission-Based No Precautions Safety Precautions Fall Prevention Vital Signs Temperature (97.8 F-99.1 F) 98.3 F 97 F L Temperature Source Temporal Temporal Pulse Rate (60-100) 104 H 96 Pulse Location Monitor Monitor Respiratory Rate (12-18) 20 H 20 H Respiratory rate source Monitor Observation Pulse Oximetry 3 Oxygen Delivery Method Nasal Cannula Nasal Cannula O2 L/MIN (L/min) 4 Blood Pressure (90/60-120/80) 131/70 H 132/72 H Blood Pressure Mean (mm Hg) 90 92 Source Monitor Position Sitting Blood Pressure Location Right Forearm History Since Last Visit- (Skip if this is Patient's initial visit) Have you changed medications since your No No last visit? Any new allergies or adverse reactions No No Had a fall/change in ADL's that may No No increase risk of falls Signs or symptoms of abuse and/or No No neglect since last visit Have you been in the hospital since your No No last visit? Has dressing in place as prescribed Yes Yes Has compression in place as prescribed N/A N/A Has offloadiing in place as prescribed N/A N/A Experienced any changes in pain level or No No management Left Footwear No Footwear No Footwear Right Footwear No Footwear No Footwear Pain Scale: 0-10 Numeric Is Patient Pain Free? Yes Yes BONITA - Nurse 1 - General Ulcer Measurement Start: 02/22/25 10:11 Freq: Status: Active Protocol: Activity Type Activity Date Activity User E-sign Co-sign Detail Recorded Client Recorded Date Recorded By Document 02/22/25 10:11 DS [id number] 02/22/25 10:31 DS Document 03/01/25 10:29 DS [id number] 03/01/25 10:34 DS 02/22/25 03/01/25 10:11 10:29 Wound Center Nurse 1 #15 LEFT LATERAL LE -Current Size (cm) - Length 0.1 0.1 -Current Size (cm) - Width 0.1 0.1 -Current Size (cm) - Depth 0.1 0.1 -Total Square Cm 0.01 0.01 -Date of Last Picture (Recall this 02/22/25 03/01/25 field) -Photo Taken Yes Yes -Tunneling No No -Undermining/Tunneling No No -Circular Undermining No No -Wound Margin Distinct, Outline Attached -Granulation Amt Large (67-100%) -Granulation Quality [place] -Necrosis Amt Small (1-33%) -Necrotic Tissue Type Adherent Slough -Texture (Trish-wound Skin Appearance) Assessed -Moisture (Trish-wound Skin Appearance) No Abnormality, Assessed Assessed -Color (Trish-wound Skin Appearance) Assessed Assessed -Temperature (Trish-wound Skin No Abnormality No Abnormality Appearance) (Pt Warm) (Pt Warm) -Tenderness on Palpation (Trish-wound No No Skin Appearance) -Ulcer Cleansing Soap and Water Soap and Water -Foul Odor after Cleansing No No -Anesthetic Used 5% Lidocaine 4% Lidocaine Gel Solution #14 Posterior Scrotum -Current Size (cm) - Length 0.1 0.1 -Current Size (cm) - Width 0.1 0.1 -Current Size (cm) - Depth 0.1 0.1 -Total Square Cm 0.01 0.01 -Date of Last Picture (Recall this 02/22/25 03/01/25 field) -Photo Taken Yes Yes -Tunneling No -Undermining/Tunneling No -Circular Undermining No -Wound Margin Distinct, Fibrotic Scar, Outline Thickened Scar Attached -Granulation Amt Medium (34-66%) Large (67-100%) -Granulation Quality [place] -Slough/Fibrin Yes -Necrosis Amt Medium (34-66%) -Necrotic Tissue Type Adherent Slough -Texture (Trish-wound Skin Appearance) Assessed Assessed -Moisture (Trish-wound Skin Appearance) Assessed, Assessed Maceration -Color (Trish-wound Skin Appearance) Assessed Assessed -Temperature (Trish-wound Skin No Abnormality No Abnormality Appearance) (Pt Warm) (Pt Warm) -Tenderness on Palpation (Trish-wound No No Skin Appearance) -Ulcer Cleansing Soap and Water Soap and Water -Foul Odor after Cleansing No No -Anesthetic Used 4% Lidocaine 4% Lidocaine Solution Solution -Wound Comment(s) measurements will be taken by Dr. Thayer 3. R ischium -Current Size (cm) - Length 0.1 0.1 -Current Size (cm) - Width 0.1 0.1 -Current Size (cm) - Depth 0.1 0.1 -Total Square Cm 0.01 0.01 -Date of Last Picture (Recall this 02/22/25 03/01/25 field) -Photo Taken Yes Yes -Tunneling No -Undermining/Tunneling No -Circular Undermining No -Exudate Amt Medium Medium -Exudate Type Serosanguineous Serosanguineous -Wound Margin Distinct, Distinct, Outline Outline Attached Attached -Granulation Amt Medium (34-66%) Medium (34-66%) -Granulation Quality [place] -Slough/Fibrin Yes -Necrosis Amt Medium (34-66%) Medium (34-66%) -Necrotic Tissue Type Adherent Slough Adherent Slough -Texture (Trish-wound Skin Appearance) Assessed Assessed -Moisture (Trish-wound Skin Appearance) Assessed, Assessed Maceration -Color (Trish-wound Skin Appearance) Assessed Assessed -Temperature (Trish-wound Skin No Abnormality No Abnormality Appearance) (Pt Warm) (Pt Warm) -Tenderness on Palpation (Trish-wound No No Skin Appearance) -Ulcer Cleansing Soap and Water Soap and Water -Foul Odor after Cleansing No No -Anesthetic Used 4% Lidocaine 4% Lidocaine Solution Solution 2. L ischium -Current Size (cm) - Length 0.1 0.1 -Current Size (cm) - Width 0.1 0.1 -Current Size (cm) - Depth 0.1 0.1 -Total Square Cm 0.01 0.01 -Date of Last Picture (Recall this 02/22/25 03/01/25 field) -Photo Taken Yes Yes -Tunneling No -Undermining/Tunneling No -Circular Undermining No -Exudate Amt Medium Medium -Exudate Type Serosanguineous Serosanguineous -Wound Margin Distinct, Outline Attached -Granulation Amt Medium (34-66%) Medium (34-66%) -Granulation Quality [place] -Slough/Fibrin Yes -Necrosis Amt Medium (34-66%) Medium (34-66%) -Necrotic Tissue Type Adherent Slough Adherent Slough -Texture (Trish-wound Skin Appearance) Assessed Assessed -Moisture (Trish-wound Skin Appearance) Assessed, Assessed, Maceration Maceration -Color (Trish-wound Skin Appearance) Assessed Assessed -Temperature (Trish-wound Skin No Abnormality No Abnormality Appearance) (Pt Warm) (Pt Warm) -Tenderness on Palpation (Trish-wound No No Skin Appearance) -Ulcer Cleansing Soap and Water Soap and Water -Foul Odor after Cleansing No No -Anesthetic Used 4% Lidocaine 4% Lidocaine Solution Solution *1. coccyx -Current Size (cm) - Length 0.1 0.1 -Current Size (cm) - Width 0.1 0.1 -Current Size (cm) - Depth 0.1 0.1 -Total Square Cm 0.01 0.01 -Date of Last Picture (Recall this 02/22/25 03/01/25 field) -Photo Taken Yes Yes -Classification - Thickness Partial Thickness -Exudate Amt Large Medium -Exudate Type Serosanguineous Serosanguineous -Wound Margin Well Defined, Not Attached -Granulation Amt Medium (34-66%) Medium (34-66%) -Granulation Quality [place] -Slough/Fibrin Yes -Necrosis Amt Medium (34-66%) Medium (34-66%) -Necrotic Tissue Type Adherent Slough Adherent Slough -Texture (Trish-wound Skin Appearance) Assessed Assessed -Moisture (Trish-wound Skin Appearance) Assessed, Assessed Maceration -Color (Trish-wound Skin Appearance) Assessed Assessed -Temperature (Trish-wound Skin No Abnormality No Abnormality Appearance) (Pt Warm) (Pt Warm) -Tenderness on Palpation (Trish-wound No No Skin Appearance) -Ulcer Cleansing Soap and Water Soap and Water -Foul Odor after Cleansing No No -Anesthetic Used 4% Lidocaine 4% Lidocaine Solution Solution WC - Nurse 2 - General Ulcer CM Notes Start: 02/22/25 10:11 Freq: Status: Active Protocol: Activity Type Activity Date Activity User E-sign Co-sign Detail Recorded Client Recorded Date Recorded By Document 02/22/25 10:41 [id number] 02/22/25 11:17 Document 03/01/25 10:56 [id number] 03/01/25 11:30 02/22/25 03/01/25 10:41 10:56 Wound Center Nurse 2 #15 LEFT LATERAL LE -Time 10:45 10:56 -Correct Patient Yes Yes -Correct Side, Site, Position Yes Yes -Correct Procedure Yes Yes -Procedure Performed Yes Yes -Type of Procedure Debridement Debridement -Clinical Debridement Subcutaneous Subcutaneous -Tissue Removed Subcutaneous Subcutaneous -Post Debridement (cm) - Length 5.0 2.9 -Post Debridement (cm) - Width 1.0 1.4 -Post Debridement (cm) - Depth 0.2 0.3 -Total Square (Post) (cm) 5.00 4.06 -Area of Debridement (cm) - Length 5.0 2.9 -Area of Debridement (cm) - Width 1.0 1.4 -Total Square (Area) (cm) 5.00 4.06 -Tunneling No No -Undermining/Tunneling No No -Circular Undermining No No -Wound/Ulcer Outcome Not Healed Not Healed -Ulcer Cleansing Rinsed/ Rinsed/ Irrigated with Irrigated with Saline Saline -Foul Odor after Cleansing No No -Bioengineered Tissue No No -Bleeding Controlled with Pressure Pressure -Treatment Response Procedure Procedure Tolerated Well Tolerated Well -Offloading No No -Debridement - Subq, 1st 20sq cm No Yes #14 Posterior Scrotum -Time 10:58 -Correct Patient Yes -Correct Side, Site, Position Yes 3. R ischium -Time 10:58 10:57 -Correct Patient Yes Yes -Correct Side, Site, Position Yes Yes -Correct Procedure Yes Yes -Procedure Performed Yes Yes -Type of Procedure Debridement Debridement -Clinical Debridement Muscle / Fascia Muscle / Fascia -Tissue Removed Muscle Muscle -Post Debridement (cm) - Length 15.0 15.0 -Post Debridement (cm) - Width 7.0 5.3 -Post Debridement (cm) - Depth 1.5 0.3 -Total Square (Post) (cm) 105.00 79.50 -Area of Debridement (cm) - Length 15.0 15.0 -Area of Debridement (cm) - Width 7.0 5.3 -Total Square (Area) (cm) 105.00 79.50 -Tunneling No No -Undermining/Tunneling No No -Circular Undermining No No -Wound/Ulcer Outcome Not Healed Not Healed -Ulcer Cleansing Wound Cleanser -Foul Odor after Cleansing No -Bioengineered Tissue No -Bleeding Controlled with Pressure Pressure,Silver Nitrate ($), Surgifoam ? x 2 3/8 (sm) -Surgifoam (3/4 x 2 3/8) Small 2 -Treatment Response Procedure Procedure Tolerated Well Tolerated Well -Offloading No -Debridement - Muscle / Fascia, 1st No No 20sq cm 2. L ischium -Time 10:59 10:57 -Correct Patient Yes Yes -Correct Side, Site, Position Yes Yes -Correct Procedure Yes No -Procedure Performed Yes No -Type of Procedure Debridement -Clinical Debridement Subcutaneous -Tissue Removed Subcutaneous -Post Debridement (cm) - Length 15.0 4.0 -Post Debridement (cm) - Width 3.0 2.0 -Post Debridement (cm) - Depth 0.1 0.1 -Total Square (Post) (cm) 45.00 8.00 -Area of Debridement (cm) - Length 15.0 -Area of Debridement (cm) - Width 3.0 -Total Square (Area) (cm) 45.00 -Tunneling No No -Undermining/Tunneling No No -Circular Undermining No No -Wound/Ulcer Outcome Not Healed Not Healed -Ulcer Cleansing Rinsed/ Not Cleansed Irrigated with Saline -Foul Odor after Cleansing No No -Bioengineered Tissue No -Bleeding Controlled with Pressure NA -Treatment Response Procedure Tolerated Well -Offloading No No -Debridement - Subq, 1st 20sq cm Yes -Debridement, SubQ, ea addt'l 20sq cm 2 or part thereof *1. coccyx -Time 10:59 10:58 -Correct Patient Yes Yes -Correct Side, Site, Position Yes Yes -Correct Procedure Yes Yes -Procedure Performed Yes Yes -Type of Procedure Debridement Debridement -Clinical Debridement Muscle / Fascia Muscle / Fascia -Tissue Removed Muscle Muscle -Post Debridement (cm) - Length 10.0 17.0 -Post Debridement (cm) - Width 15.0 15.0 -Post Debridement (cm) - Depth 0.1 0.3 -Total Square (Post) (cm) 150.00 255.00 -Area of Debridement (cm) - Length 10.0 17 -Area of Debridement (cm) - Width 15.0 15 -Total Square (Area) (cm) 150.00 255 -Tunneling No No -Undermining/Tunneling No No -Circular Undermining No No -Wound/Ulcer Outcome Not Healed Not Healed -Ulcer Cleansing Rinsed/ Rinsed/ Irrigated with Irrigated with Saline Saline -Foul Odor after Cleansing No No -Bioengineered Tissue No No -Bleeding Controlled with Pressure Pressure -Treatment Response Procedure Procedure Tolerated Well Tolerated Well -Offloading No No -Debridement - Muscle / Fascia, 1st Yes Yes 20sq cm -Debridement, Muscle/Fascia, ea addt'l 12 16 20sq cm or part thereof Pain Scale: 0-10 Numeric Is Patient Pain Free? Yes Yes WC - Nurse 3 - General Ulcer D/C NN Start: 02/22/25 10:11 Freq: Status: Active Protocol: Activity Type Activity Date Activity User E-sign Co-sign Detail Recorded Client Recorded Date Recorded By Document 02/22/25 11:00 DS [id number] 02/22/25 12:29 DS Document 03/01/25 11:34 [id number] 03/01/25 11:35 02/22/25 03/01/25 11:00 11:34 Wound Care Center Nurse 3 #15 LEFT LATERAL LE -Ulcer Cleansing gauze Not Cleansed -Foul Odor after Cleansing No -Primary Dressing Applied Aquacel Extra Aquacel Extra -Other Dressing nanci wrap abd pad -Primary Dressing Covered/Secured with Dry Gauze, Dry Gauze & Secured with Roll Gauze, Tape Secured with Tape -Aquacel Extra 0 1 #14 Posterior Scrotum -Primary Dressing Applied Aquacel Extra -Primary Dressing Covered/Secured with Dry Gauze, Secured with Tape -Aquacel Extra 0 3. R ischium -Ulcer Cleansing gauze Not Cleansed -Foul Odor after Cleansing No -Primary Dressing Applied Hysept -Other Dressing abd pad dakins wet to dry and abd pad -Primary Dressing Covered/Secured with Dry Gauze, Secured with Secured with Tape Tape -Hysept 0 2. L ischium -Ulcer Cleansing gauze Not Cleansed -Primary Dressing Applied Aquacel Extra -Other Dressing used part of aquacel extra -Primary Dressing Covered/Secured with Dry Gauze, Dry Gauze & Secured with Roll Gauze, Tape Secured with Tape -Aquacel Extra 1 *1. coccyx -Ulcer Cleansing gauze Not Cleansed -Foul Odor after Cleansing No -Primary Dressing Applied Hysept -Other Dressing abd pad dakins wet to dry and abd pad -Primary Dressing Covered/Secured with Dry Gauze, Secured with Secured with Tape Tape -Hysept 0 RLE -Lotion applied to leg before No compression wrap -Tubular Bandage Single Layer -Size of Tubigrip Used Size F -Size F ($) 1 LLE -Compression Wrap Surya Wrap -Tubular Bandage Single Layer -Size of Tubigrip Used Size F -Size F ($) 1 Pain Scale: 0-10 Numeric Is Patient Pain Free? Yes Yes WC - Visit Discharge Discharge Condition Stable Stable Ambulatory Status Wheelchair Wheelchair Transportation Ambulance Private Auto Additional Wound Wound debrided: right ischium Laterality: Right Wound Grade/Stage: Stage III Type of Debridement: Excisional debridement Anesthesia Used: 4% Lidocaine Solution Depth: Down to and including healthy tissue, in the subcutaneous layer and to muscle Percentage of wound debrided: 100 Instrument Used: #15 blade and Forceps Tissue Removed: Yellow slough, devitalized tissue Severity: Necrosis of Muscle Amount of bleeding with debridement: Moderate Bleeding Controlled with: Pressure, Compression and gauze, Silver Nitrate and Gel Foam Patient tolerated procedure: Patient tolerated procedure well Additional Wound Wound debrided: coccyx Laterality: Not Applicable Wound Grade/Stage: Stage IV Type of Debridement: Excisional debridement Anesthesia Used: 4% Lidocaine Solution Depth: Down to and including healthy tissue, in the subcutaneous layer and to muscle Percentage of wound debrided: 100 Instrument Used: 7mm curette Tissue Removed: Yellow slough, devitalized tissue Severity: Necrosis of Muscle Amount of bleeding with debridement: Mild Bleeding Controlled with: Compression and gauze Patient tolerated procedure: Patient tolerated procedure well Additional Wound Wound debrided: posterior scrotum Laterality: Not Applicable Wound Grade/Stage: Stage 2 Type of Debridement: Excisional debridement Anesthesia Used: 5% Lidocaine Gel Depth: Down to and including healthy tissue and in the subcutaneous layer Percentage of wound debrided: 100 Instrument Used: 5mm curette Severity: Fat Layer Exposed Amount of bleeding with debridement: Mild Bleeding Controlled with: Compression and gauze Patient tolerated procedure: Patient tolerated procedure well Additional Wound Wound debrided: left lateral calf Laterality: Left Type of Debridement: Excisional debridement Anesthesia Used: 4% Lidocaine Solution and 5% Lidocaine Gel Depth: Down to and including healthy tissue and in the subcutaneous layer Percentage of wound debrided: 100 Instrument Used: 5mm curette Tissue Removed: Yellow slough, devitalized tissue Severity: Fat Layer Exposed Amount of bleeding with debridement: Mild Bleeding Controlled with: Compression and gauze Patient tolerated procedure: Patient tolerated procedure well Assessment/Plan Assessment/Plan (1) Chronic pain: CODE(S): G89.29 - Other chronic pain QUALIFIERS: Chronic pain type: chronic pain syndrome Qualified Code(s): G89.4 - Chronic pain syndrome (2) Hypoxia: CODE(S): R09.02 - Hypoxemia (3) History of paraplegia: CODE(S): Z86.69 - Personal history of other diseases of the nervous system and sense organs (4) Chronic indwelling Campbell catheter: CODE(S): Z97.8 - Presence of other specified devices (5) Type 2 diabetes mellitus: CODE(S): E11.9 - Type 2 diabetes mellitus without complications QUALIFIERS: Diabetes mellitus mcfp insulin use: without roasterman use Diabetes mellitus complication status: with neurologic complications Diabetes mellitus complication detail: with polyneuropathy Qualified Code(s): E11.42 - Type 2 diabetes mellitus with diabetic polyneuropathy (6) Chronic anticoagulation: CODE(S): Z79.01 - ad terminal 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) use of anticoagulants (7) History of deep vein thrombosis: CODE(S): Z86.718 - Personal history of other venous thrombosis and embolism (8) Decubitus ulcer of sacral region, stage 4: CODE(S): L89.154 - Pressure ulcer of sacral region, stage 4 (9) Decubitus ulcer of left perineal ischial region, stage 2: CODE(S): L89.322 - Pressure ulcer of left buttock, stage 2 (10) Hx of spinal surgery: CODE(S): Z98.890 - Other specified postprocedural states (11) Colostomy status: CODE(S): Z93.3 - Colostomy status (12) HTN (hypertension): CODE(S): I10 - Essential (primary) hypertension QUALIFIERS: Hypertension type: primary hypertension Qualified Code(s): I10 - Essential (primary) hypertension (13) BATOOL treated with BiPAP: CODE(S): G47.33 - Obstructive sleep apnea (adult) (pediatric) (14) Lymphedema: CODE(S): I89.0 - Lymphedema, not elsewhere classified (15) Decubitus ulcer of right ischium, stage 3: CODE(S): L89.313 - Pressure ulcer of right buttock, stage 3 (16) Pressure ulcer of left leg, stage 3: CODE(S): L89.893 - Pressure ulcer of other site, stage 3 PLAN: Plan Debridement performed today in clinic as annotated above. At home wound-care instructions: The patient's ulcers will be washed with antibacterial soap and water and then will use Dakins wet to dry to wound bed and cover with gauze and superabsorber for heavy drainage twice daily. Keep dressing clean and dry. Left ischium will be treated with Aquacel Extra changed twice daily. Left heel and right lateral foot will be padded with heel protectors daily. Left lateral calf will be treated with Aquacel Extra and covered with ABD daily. Off-loading: The patient was instructed to avoid pressure and friction on the affected areas. Reposition every 2 hours at minimum. Avoid prolonged standing and/or dangling of legs. When seated, feet should be elevated at chest level. Continue air mattress. Order has been written for alternating pressure air mattress to assist in offloading pressure to his ulcers. He now has alternating pressure air mattress to assist in offloading. Diet: Patient encouraged to increase protein intake while taking caution to avoid high carbohydrate and/or sugar intake. He is getting [employer] protein supplement at [facility]. Labs/cultures/imaging: Will obtain previous imaging results. Most recent A1C 7.9% on 07/23/24. Will also repeat MRI of his sacrum to evaluate for any changes of bone. Follow-up: Return in 1 week for wound care. Return sooner or report to the emergency room should symptoms worsen, or new symptoms arise. Note: [employer] speech recognition network announcer software was used to create portions of this document. Sound-alike and misspelled words, as well as other network announcer errors may be contained in the documentation.
--- NOTE | 2025-03-05 09:04 | WC ---
PHOTO-RIGHT ISCHIUM 03/01/25
--- NOTE | 2025-03-05 09:05 | WC ---
PHOTO-COCCYX 03/01/25
[2025-03-15 09:56] VITALS: BP 138/66; PULSE 101; RESP 24; TEMP 36.8
--- NOTE | 2025-03-15 14:47 | PCM.WC.PN ---
History of Present Illness Date of Service: 03/15/25 Chief Complaint: sacral decubitus ulcer History of Wound: Jani is a pleasant 59 yo gentleman that has undergone an unfortunate series of events over the last several years which has left him paraplegic and with a sacral decubitus ulcer and residing in [facility] in [place]. He has been referred to the wound center for evaluation and treatment of his sacral ulcer. He has had a long history of degenerative disc disease of his spine and underwent spine surgery in August 2016 initially and then again in February 2017 due to osteomyelitis and infection of hardware. He underwent further surgery for fusion in December of 2020. He fell in November of 2022 getting up from his chair and then experienced worsening pain, weakness in his legs and ultimately became paraplegic from the waist down. He underwent surgery in [place] in January 2023 at [facility], [facility] and then had several complications including pneumonia, pulmonary embolisms and a sacral ulcer that developed into a large defect after multiple surgical debridements and osteomyelitis of his sacrum while at [facility] through the first part 2023 and then attempted to come home to be cared for by his elderly mother which was not successful and he was hospitalized and discharged to [facility] where he had been residing until December 2024 when he transferred to [facility] in [place]. He has undergone many different treatments for his sacral ulcer including wound vac, silver dressings and Dakins and does have an air mattress but it is not an alternating pressure air mattress. The staff does try to offload his ulcer with wedges and pillows but it is difficult due to his chronic back pain. He is currently having the wound dressed with Dakins wet to dry and super absorber dressings twice daily. he reports being on chronic antibiotic treatment and IV treatment over the past year and states that he had MRI that showed resolution of osteomyelitis. (Records unavailable). He transferred care from [facility] to [facility] in [place] in January. Natacha Gunter returns today for evaluation and treatment of a sacral decubitus ulcer. He has been tolerating dressing changes with Dakins and super absorber dressings. He has been doing ok. He denies any increase in drainage or odor. Tolerating dressing changes and they are being done twice daily at [facility]. He continues to have heavy drainage. He has pneumonia on Xray from [facility]. Wound cultures were positive for multiple bacteria. He is going to be placed on Meropenem and Flagyl. Has MRI after appointment today for sacral ulcer. Denies fever, chills, erythema. Objective Data Objective Data Vital Signs: Vital Signs Temp Pulse Resp BP Pulse Ox O2 Del Method O2 Flow Rate 98.3 F 101 H 24 H 138/66 H 3 Nasal Cannula 5 03/15/25 09:56 03/15/25 09:56 03/15/25 09:56 03/15/25 09:56 02/22/25 10:11 03/15/25 09:56 03/15/25 09:56 Oxygen Flow Rate (L/min) 5 Oxygen Delivery Method Nasal Cannula Lab / Micro Data Attestation: I reviewed the patient's lab results. Micro: Microbiology 03/01/25 Unknown Wound - Buttock Gram Stain - Final 03/01/25 Unknown Wound - Buttock Wound Culture - Final Morganella morganii sp morgani Pseudomonas aeruginosa Providencia stuartii 03/01/25 Unknown Wound - Buttock Anaerobic Culture - Final Bacteroides fragilis Prevotella species Physical Exam Const alert, oriented x3, no apparent distress and well nourished Constitutional Narrative: Morbidly obese, middle-aged, white male, sitting up in bed, appears comfortable and nontoxic General Appearance: cooperative and comfortable Nutritional Appearance: morbidly obese HEENT head/scalp atraumatic and moist oral mucous membranes Resp normal respiratory effort, no retractions, no use of accessory muscles and clear to auscultation bilaterally Resp Narrative: Distant due to body habitus Cardio regular rate, regular rhythm, S1 normal heart sound, S2 normal heart sound, no murmurs, no rub, no gallops and no clicks GI normal to inspection, nondistended, normoactive bowel sounds, soft to palpation and non-tender GI Narrative: colostomy present Extremity Extremity Narrative: Chronic bilateral lower extremity edema due to history of paraplegia and lack of movement, no cyanosis or clubbing General Extremity: edema bilateral lower extremity Details: moderate Skin Wounds: wounds noted Wound Narrative: as noted in clinical panel - large sacral ulcer and right ischial ulcer, no visible bone, shearing injury of left ischial area, area is irregular with fringe like skin in areas from repetitive shearing and pressure, friable and bleeding easily, left lateral LE ulcer with minimal slough prior to debridement Right ischial ulcer has areas of necrotic tissue prior to debridement Neuro oriented x3, CN's II-XII intact bilaterally, No moves all extremities, No no focal motor deficits and No no sensory deficits noted Neuro Narrative: Bilateral lower extremity flaccidity due to history of L1 injury Speech: speech normal Psych affect normal Psych Narrative: Very pleasant, interacts appropriately Debridement Note Debridement Note Wound debrided: left ischium Laterality: Left Type of Debridement: Excisional debridement Anesthesia Used: 4% Lidocaine Solution Depth: Down to and including healthy tissue and in the subcutaneous layer Percentage of wound debrided: 100 Instrument Used: 5mm curette Tissue Removed: Yellow slough, devitalized tissue Severity: Fat Layer Exposed Amount of bleeding with debridement: Mild Bleeding Controlled with: Pressure and Compression and gauze Patient tolerated procedure: Patient tolerated procedure well Post-Debridement Measurements and Additional Note: Post-Debridement Measurements/Treatment - Nurse 1 - General Ulcer Assessment Start: 02/22/25 10:11 Freq: Status: Active Protocol: [email or web address].[email or web address] Activity Type Activity Date Activity User E-sign Co-sign Detail Recorded Client Recorded Date Recorded By Document 02/22/25 10:11 DS [id number] 02/22/25 10:31 DS Document 03/01/25 10:29 DS [id number] 03/01/25 10:34 DS Document 03/15/25 09:56 TS [id number] 03/15/25 10:01 TS 02/22/25 03/01/25 03/15/25 10:11 10:29 09:56 - Today's Visit Information Type of service Follow-up Visit Follow-up Visit (Physician/STRIP PRESSER (Physician/STRIP PRESSER ) ) Arrival Mode Wheelchair Wheelchair Transfer Assistance Kelli Lift Kelli Lift Patient Identification Verified (Name & Yes Yes ) Patient Requires Transmission-Based No No Precautions Safety Precautions Fall Prevention NA Vital Signs Temperature (97.8 F-99.1 F) 98.3 F 97 F L 98.3 F Temperature Source Temporal Temporal Temporal Pulse Rate (60-100) 104 H 96 101 H Pulse Location Monitor Monitor Monitor Respiratory Rate (12-18) 20 H 20 H 24 H Respiratory rate source Monitor Observation Observation Pulse Oximetry 3 Oxygen Delivery Method Nasal Cannula Nasal Cannula Nasal Cannula O2 L/MIN (L/min) 4 5 Blood Pressure (90/60-120/80) 131/70 H 132/72 H 138/66 H Blood Pressure Mean (mm Hg) 90 92 90 Source Monitor Monitor Position Sitting Sitting Blood Pressure Location Right Forearm Right Arm History Since Last Visit- (Skip if this is Patient's initial visit) Have you changed medications since your No No No last visit? Any new allergies or adverse reactions No No No Had a fall/change in ADL's that may No No No increase risk of falls Signs or symptoms of abuse and/or No No No neglect since last visit Have you been in the hospital since your No No No last visit? Has dressing in place as prescribed Yes Yes Yes Has compression in place as prescribed N/A N/A N/A Has offloadiing in place as prescribed N/A N/A N/A Experienced any changes in pain level or No No No management Left Footwear No Footwear No Footwear Other Footwear (Comment) Right Footwear No Footwear No Footwear Other Footwear (Comment) Pain Scale: 0-10 Numeric Is Patient Pain Free? Yes Yes Yes WC - Nurse 1 - General Ulcer Measurement Start: 02/22/25 10:11 Freq: Status: Active Protocol: Activity Type Activity Date Activity User E-sign Co-sign Detail Recorded Client Recorded Date Recorded By Document 02/22/25 10:11 DS [id number] 02/22/25 10:31 DS Document 03/01/25 10:29 DS [id number] 03/01/25 10:34 DS Document 03/15/25 09:56 TS [id number] 03/15/25 10:01 TS 02/22/25 03/01/25 03/15/25 10:11 10:29 09:56 Wound Center Nurse 1 #15 LEFT LATERAL LE -Current Size (cm) - Length 0.1 0.1 0.1 -Current Size (cm) - Width 0.1 0.1 0.1 -Current Size (cm) - Depth 0.1 0.1 0.1 -Total Square Cm 0.01 0.01 0.01 -Date of Last Picture (Recall this 02/22/25 03/01/25 field) -Photo Taken Yes Yes No -Tunneling No No -Undermining/Tunneling No No -Circular Undermining No No -Exudate Amt Large -Exudate Type Serosanguineous -Wound Margin Distinct, Distinct, Outline Outline Attached Attached -Granulation Amt Large (67-100%) -Granulation Quality Cornelius -Necrosis Amt Small (1-33%) Medium (34-66%) -Necrotic Tissue Type Adherent Slough Adherent Slough -Structure Exposed None/Limited to Skin Breakdown -Texture (Trish-wound Skin Appearance) Assessed Assessed, Excoriation -Moisture (Trish-wound Skin Appearance) No Abnormality, Assessed Assessed Assessed -Color (Trish-wound Skin Appearance) Assessed Assessed Assessed -Temperature (Trish-wound Skin No Abnormality No Abnormality No Abnormality Appearance) (Pt Warm) (Pt Warm) (Pt Warm) -Tenderness on Palpation (Trish-wound No No No Skin Appearance) -Ulcer Cleansing Soap and Water Soap and Water Soap and Water -Foul Odor after Cleansing No No No -Anesthetic Used 5% Lidocaine 4% Lidocaine 5% Lidocaine Gel Solution Gel #14 Posterior Scrotum -Current Size (cm) - Length 0.1 0.1 0.1 -Current Size (cm) - Width 0.1 0.1 0.1 -Current Size (cm) - Depth 0.1 0.1 0.1 -Total Square Cm 0.01 0.01 0.01 -Date of Last Picture (Recall this 02/22/25 03/01/25 field) -Photo Taken Yes Yes No -Tunneling No -Undermining/Tunneling No -Circular Undermining No -Exudate Amt Large -Exudate Type Serosanguineous -Wound Margin Distinct, Fibrotic Scar, Distinct, Outline Thickened Scar Outline Attached Attached -Granulation Amt Medium (34-66%) Large (67-100%) -Granulation Quality Cornelius Cornelius -Slough/Fibrin Yes Yes -Necrosis Amt Medium (34-66%) Medium (34-66%) -Necrotic Tissue Type Adherent Slough -Structure Exposed None/Limited to Skin Breakdown -Texture (Trish-wound Skin Appearance) Assessed Assessed Assessed, Excoriation -Moisture (Trish-wound Skin Appearance) Assessed, Assessed Assessed Maceration -Color (Trish-wound Skin Appearance) Assessed Assessed Assessed -Temperature (Trish-wound Skin No Abnormality No Abnormality No Abnormality Appearance) (Pt Warm) (Pt Warm) (Pt Warm) -Tenderness on Palpation (Trish-wound No No Skin Appearance) -Ulcer Cleansing Soap and Water Soap and Water Soap and Water -Foul Odor after Cleansing No No No -Anesthetic Used 4% Lidocaine 4% Lidocaine 5% Lidocaine Solution Solution Gel -Wound Comment(s) measurements will be taken by Dr. Thayer 3. R ischium -Current Size (cm) - Length 0.1 0.1 0.1 -Current Size (cm) - Width 0.1 0.1 0.1 -Current Size (cm) - Depth 0.1 0.1 0.1 -Total Square Cm 0.01 0.01 0.01 -Date of Last Picture (Recall this 02/22/25 03/01/25 field) -Photo Taken Yes Yes No -Tunneling No -Undermining/Tunneling No -Circular Undermining No -Exudate Amt Medium Medium Large -Exudate Type Serosanguineous Serosanguineous Serosanguineous -Wound Margin Distinct, Distinct, Distinct, Outline Outline Outline Attached Attached Attached -Granulation Amt Medium (34-66%) Medium (34-66%) -Granulation Quality Cornelius Cornelius -Slough/Fibrin Yes -Necrosis Amt Medium (34-66%) Medium (34-66%) -Necrotic Tissue Type Adherent Slough Adherent Slough -Structure Exposed None/Limited to Skin Breakdown -Texture (Trish-wound Skin Appearance) Assessed Assessed Assessed, Excoriation -Moisture (Trish-wound Skin Appearance) Assessed, Assessed No Abnormality Maceration -Color (Trish-wound Skin Appearance) Assessed Assessed Assessed -Temperature (Trish-wound Skin No Abnormality No Abnormality No Abnormality Appearance) (Pt Warm) (Pt Warm) (Pt Warm) -Tenderness on Palpation (Trish-wound No No Yes Skin Appearance) -Ulcer Cleansing Soap and Water Soap and Water Soap and Water -Foul Odor after Cleansing No No No -Anesthetic Used 4% Lidocaine 4% Lidocaine 4% Lidocaine Solution Solution Solution 2. L ischium -Current Size (cm) - Length 0.1 0.1 0.1 -Current Size (cm) - Width 0.1 0.1 0.1 -Current Size (cm) - Depth 0.1 0.1 0.1 -Total Square Cm 0.01 0.01 0.01 -Date of Last Picture (Recall this 02/22/25 03/01/25 field) -Photo Taken Yes Yes No -Tunneling No -Undermining/Tunneling No -Circular Undermining No -Exudate Amt Medium Medium Large -Exudate Type Serosanguineous Serosanguineous Serosanguineous -Wound Margin Distinct, Outline Attached -Granulation Amt Medium (34-66%) Medium (34-66%) -Granulation Quality Cornelius Cornelius -Slough/Fibrin Yes -Necrosis Amt Medium (34-66%) Medium (34-66%) Medium (34-66%) -Necrotic Tissue Type Adherent Slough Adherent Slough Adherent Slough -Structure Exposed None/Limited to Skin Breakdown -Texture (Trish-wound Skin Appearance) Assessed Assessed Assessed, Excoriation -Moisture (Trish-wound Skin Appearance) Assessed, Assessed, Assessed Maceration Maceration -Color (Trish-wound Skin Appearance) Assessed Assessed Assessed -Temperature (Trish-wound Skin No Abnormality No Abnormality No Abnormality Appearance) (Pt Warm) (Pt Warm) (Pt Warm) -Tenderness on Palpation (Trish-wound No No Skin Appearance) -Ulcer Cleansing Soap and Water Soap and Water Soap and Water -Foul Odor after Cleansing No No No -Anesthetic Used 4% Lidocaine 4% Lidocaine 4% Lidocaine Solution Solution Solution *1. coccyx -Current Size (cm) - Length 0.1 0.1 0.1 -Current Size (cm) - Width 0.1 0.1 0.1 -Current Size (cm) - Depth 0.1 0.1 0.1 -Total Square Cm 0.01 0.01 0.01 -Date of Last Picture (Recall this 02/22/25 03/01/25 field) -Photo Taken Yes Yes -Classification - Thickness Partial Thickness -Exudate Amt Large Medium Large -Exudate Type Serosanguineous Serosanguineous Serosanguineous -Wound Margin Well Defined, Distinct, Not Attached Outline Attached -Granulation Amt Medium (34-66%) Medium (34-66%) -Granulation Quality Cornelius Cornelius -Slough/Fibrin Yes -Necrosis Amt Medium (34-66%) Medium (34-66%) Medium (34-66%) -Necrotic Tissue Type Adherent Slough Adherent Slough Adherent Slough -Structure Exposed None/Limited to Skin Breakdown -Texture (Trish-wound Skin Appearance) Assessed Assessed Assessed, Excoriation -Moisture (Trish-wound Skin Appearance) Assessed, Assessed Assessed Maceration -Color (Trish-wound Skin Appearance) Assessed Assessed Assessed -Temperature (Trish-wound Skin No Abnormality No Abnormality No Abnormality Appearance) (Pt Warm) (Pt Warm) (Pt Warm) -Tenderness on Palpation (Trish-wound No No Skin Appearance) -Ulcer Cleansing Soap and Water Soap and Water Soap and Water -Foul Odor after Cleansing No No No -Anesthetic Used 4% Lidocaine 4% Lidocaine 4% Lidocaine Solution Solution Solution WC - Nurse 2 - General Ulcer CM Notes Start: 02/22/25 10:11 Freq: Status: Active Protocol: Activity Type Activity Date Activity User E-sign Co-sign Detail Recorded Client Recorded Date Recorded By Document 02/22/25 10:41 GM [id number] 02/22/25 11:17 GM Document 03/01/25 10:56 GM [id number] 03/01/25 11:30 GM Document 03/15/25 10:13 GM [id number] 03/15/25 10:44 GM 02/22/25 03/01/25 03/15/25 10:41 10:56 10:13 Wound Center Nurse 2 #15 LEFT LATERAL LE -Time 10:45 10:56 10:17 -Correct Patient Yes Yes Yes -Correct Side, Site, Position Yes Yes Yes -Correct Procedure Yes Yes Yes -Procedure Performed Yes Yes Yes -Type of Procedure Debridement Debridement Debridement -Clinical Debridement Subcutaneous Subcutaneous Epidermis / Dermis -Tissue Removed Subcutaneous Subcutaneous Epidermis -Post Debridement (cm) - Length 5.0 2.9 2.0 -Post Debridement (cm) - Width 1.0 1.4 1.0 -Post Debridement (cm) - Depth 0.2 0.3 0.1 -Total Square (Post) (cm) 5.00 4.06 2.00 -Area of Debridement (cm) - Length 5.0 2.9 2.0 -Area of Debridement (cm) - Width 1.0 1.4 1.0 -Total Square (Area) (cm) 5.00 4.06 2.00 -Tunneling No No No -Undermining/Tunneling No No No -Circular Undermining No No No -Wound/Ulcer Outcome Not Healed Not Healed Not Healed -Ulcer Cleansing Rinsed/ Rinsed/ Rinsed/ Irrigated with Irrigated with Irrigated with Saline Saline Saline -Foul Odor after Cleansing No No No -Bioengineered Tissue No No No -Bleeding Controlled with Pressure Pressure Pressure -Treatment Response Procedure Procedure Procedure Tolerated Well Tolerated Well Tolerated Well -Offloading No No No -Debridement - Open, 1st 20sq cm Yes -Debridement - Subq, 1st 20sq cm No Yes #14 Posterior Scrotum -Time 10:58 -Correct Patient Yes -Correct Side, Site, Position Yes 3. R ischium -Time 10:58 10:57 10:18 -Correct Patient Yes Yes Yes -Correct Side, Site, Position Yes Yes Yes -Correct Procedure Yes Yes Yes -Procedure Performed Yes Yes Yes -Type of Procedure Debridement Debridement Debridement -Clinical Debridement Muscle / Fascia Muscle / Fascia Muscle / Fascia -Tissue Removed Muscle Muscle Muscle -Post Debridement (cm) - Length 15.0 15.0 15 -Post Debridement (cm) - Width 7.0 5.3 5.3 -Post Debridement (cm) - Depth 1.5 0.3 2.0 -Total Square (Post) (cm) 105.00 79.50 79.5 -Area of Debridement (cm) - Length 15.0 15.0 15 -Area of Debridement (cm) - Width 7.0 5.3 5.3 -Total Square (Area) (cm) 105.00 79.50 79.5 -Tunneling No No No -Undermining/Tunneling No No No -Circular Undermining No No No -Wound/Ulcer Outcome Not Healed Not Healed Not Healed -Ulcer Cleansing Wound Cleanser Not Cleansed -Foul Odor after Cleansing No No -Bioengineered Tissue No No -Bleeding Controlled with Pressure Pressure,Silver Pressure Nitrate ($), Surgifoam ? x 2 38 (sm) -Surgifoam (3/4 x 2 8) Small 2 -Treatment Response Procedure Procedure Procedure Tolerated Well Tolerated Well Tolerated Well -Offloading No No -Debridement - Muscle / Fascia, 1st No No No 20sq cm 2. L ischium -Time 10:59 10:57 10:18 -Correct Patient Yes Yes Yes -Correct Side, Site, Position Yes Yes Yes -Correct Procedure Yes No Yes -Procedure Performed Yes No Yes -Type of Procedure Debridement Debridement -Clinical Debridement Subcutaneous Subcutaneous -Tissue Removed Subcutaneous Subcutaneous -Post Debridement (cm) - Length 15.0 4.0 4.0 -Post Debridement (cm) - Width 3.0 2.0 2.0 -Post Debridement (cm) - Depth 0.1 0.1 0.1 -Total Square (Post) (cm) 45.00 8.00 8.00 -Area of Debridement (cm) - Length 15.0 4.0 -Area of Debridement (cm) - Width 3.0 2.0 -Total Square (Area) (cm) 45.00 8.00 -Tunneling No No No -Undermining/Tunneling No No No -Circular Undermining No No No -Wound/Ulcer Outcome Not Healed Not Healed Not Healed -Ulcer Cleansing Rinsed/ Not Cleansed Rinsed/ Irrigated with Irrigated with Saline Saline -Foul Odor after Cleansing No No No -Bioengineered Tissue No No -Bleeding Controlled with Pressure NA Pressure -Treatment Response Procedure Procedure Tolerated Well Tolerated Well -Offloading No No No -Debridement - Subq, 1st 20sq cm Yes Yes -Debridement, SubQ, ea addt'l 20sq cm 2 or part thereof *1. coccyx -Time 10:59 10:58 10:18 -Correct Patient Yes Yes Yes -Correct Side, Site, Position Yes Yes Yes -Correct Procedure Yes Yes Yes -Procedure Performed Yes Yes Yes -Type of Procedure Debridement Debridement Debridement -Clinical Debridement Muscle / Fascia Muscle / Fascia Muscle / Fascia -Tissue Removed Muscle Muscle Muscle -Post Debridement (cm) - Length 10.0 17.0 17 -Post Debridement (cm) - Width 15.0 15.0 15 -Post Debridement (cm) - Depth 0.1 0.3 0.3 -Total Square (Post) (cm) 150.00 255.00 255 -Area of Debridement (cm) - Length 10.0 17 17 -Area of Debridement (cm) - Width 15.0 15 15 -Total Square (Area) (cm) 150.00 255 255 -Tunneling No No No -Undermining/Tunneling No No No -Circular Undermining No No No -Wound/Ulcer Outcome Not Healed Not Healed Not Healed -Ulcer Cleansing Rinsed/ Rinsed/ Rinsed/ Irrigated with Irrigated with Irrigated with Saline Saline Saline -Foul Odor after Cleansing No No No -Bioengineered Tissue No No No -Bleeding Controlled with Pressure Pressure Pressure -Treatment Response Procedure Procedure Procedure Tolerated Well Tolerated Well Tolerated Well -Offloading No No -Debridement - Muscle / Fascia, 1st Yes Yes Yes 20sq cm -Debridement, Muscle/Fascia, ea addt'l 12 16 16 20sq cm or part thereof Pain Scale: 0-10 Numeric Is Patient Pain Free? Yes Yes Yes WC - Nurse 3 - General Ulcer D/C NN Start: 02/22/25 10:11 Freq: Status: Active Protocol: Activity Type Activity Date Activity User E-sign Co-sign Detail Recorded Client Recorded Date Recorded By Document 02/22/25 11:00 DS [id number] 02/22/25 12:29 DS Document 03/01/25 11:34 GM [id number] 03/01/25 11:35 GM Document 03/15/25 10:47 GM [id number] 03/15/25 10:50 GM 02/22/25 03/01/25 03/15/25 11:00 11:34 10:47 Wound Care Center Nurse 3 #15 LEFT LATERAL LE -Ulcer Cleansing gauze Not Cleansed Not Cleansed -Foul Odor after Cleansing No No -Primary Dressing Applied Aquacel Extra Aquacel Extra Aquacel Extra, Other -Other Dressing nanci wrap abd pad ABD PAD -Primary Dressing Covered/Secured with Dry Gauze, Dry Gauze & Secured with Secured with Roll Gauze, Tape Tape Secured with Tape -Aquacel Extra 0 1 1 #14 Posterior Scrotum -Primary Dressing Applied Aquacel Extra -Primary Dressing Covered/Secured with Dry Gauze, Secured with Tape -Aquacel Extra 0 3. R ischium -Ulcer Cleansing gauze Not Cleansed Not Cleansed -Foul Odor after Cleansing No -Primary Dressing Applied Hysept -Other Dressing abd pad dakins wet to DAKIN AND ABD dry and abd pad PAD -Primary Dressing Covered/Secured with Dry Gauze, Secured with Dry Gauze & Secured with Tape Roll Gauze, Tape Secured with Tape -Hysept 0 2. L ischium -Ulcer Cleansing gauze Not Cleansed Not Cleansed -Primary Dressing Applied Aquacel Extra -Other Dressing used part of THE OTHER HALF aquacel extra AQUACEL EXTRA AND ABD PAD -Primary Dressing Covered/Secured with Dry Gauze, Dry Gauze & Secured with Secured with Roll Gauze, Tape Tape Secured with Tape -Aquacel Extra 1 *1. coccyx -Ulcer Cleansing gauze Not Cleansed Not Cleansed -Foul Odor after Cleansing No No -Primary Dressing Applied Hysept -Other Dressing abd pad dakins wet to DAKINS WET TO dry and abd pad DRY AND ABD PAD -Primary Dressing Covered/Secured with Dry Gauze, Secured with Secured with Tape Tape -Hysept 0 RLE -Lotion applied to leg before No No compression wrap -Tubular Bandage Single Layer Single Layer -Size of Tubigrip Used Size F Size E -Size E ($) 1 -Size F ($) 1 LLE -Lotion applied to leg before No compression wrap -Compression Wrap Surya Wrap -Tubular Bandage Single Layer Single Layer -Size of Tubigrip Used Size F Size E -Size E ($) 1 -Size F ($) 1 Pain Scale: 0-10 Numeric Is Patient Pain Free? Yes Yes Yes WC - Visit Discharge Discharge Condition Stable Stable Stable Ambulatory Status Wheelchair Wheelchair Wheelchair Transportation Ambulance Private Auto Private Auto Additional Wound Wound debrided: right ischium Laterality: Right Wound Grade/Stage: Stage III Type of Debridement: Excisional debridement Anesthesia Used: 4% Lidocaine Solution Depth: Down to and including healthy tissue, in the subcutaneous layer and to muscle Percentage of wound debrided: 100 Instrument Used: #15 blade and Forceps Tissue Removed: Yellow slough, devitalized tissue Severity: Necrosis of Muscle Amount of bleeding with debridement: Moderate Bleeding Controlled with: Pressure, Compression and gauze and Gel Foam Patient tolerated procedure: Patient tolerated procedure well Additional Wound Wound debrided: coccyx Laterality: Not Applicable Wound Grade/Stage: Stage IV Type of Debridement: Excisional debridement Anesthesia Used: 4% Lidocaine Solution Depth: Down to and including healthy tissue, in the subcutaneous layer and to muscle Percentage of wound debrided: 100 Instrument Used: 7mm curette Tissue Removed: Yellow slough, devitalized tissue Severity: Necrosis of Muscle Amount of bleeding with debridement: Mild Bleeding Controlled with: Compression and gauze Patient tolerated procedure: Patient tolerated procedure well Additional Wound Wound debrided: left lateral calf Laterality: Left Type of Debridement: Excisional debridement Anesthesia Used: 4% Lidocaine Solution and 5% Lidocaine Gel Depth: Down to and including healthy tissue and in the subcutaneous layer Percentage of wound debrided: 100 Instrument Used: 5mm curette Tissue Removed: Yellow slough, devitalized tissue Severity: Fat Layer Exposed Amount of bleeding with debridement: Mild Bleeding Controlled with: Compression and gauze Patient tolerated procedure: Patient tolerated procedure well Assessment/Plan Assessment/Plan (1) Chronic pain: CODE(S): G89.29 - Other chronic pain QUALIFIERS: Chronic pain type: chronic pain syndrome Qualified Code(s): G89.4 - Chronic pain syndrome (2) Hypoxia: CODE(S): R09.02 - Hypoxemia (3) History of paraplegia: CODE(S): Z86.69 - Personal history of other diseases of the nervous system and sense organs (4) Chronic indwelling Campbell catheter: CODE(S): Z97.8 - Presence of other specified devices (5) Type 2 diabetes mellitus: CODE(S): E11.9 - Type 2 diabetes mellitus without complications QUALIFIERS: Diabetes mellitus custodial insulin use: without middle or intermediate school principal use Diabetes mellitus complication status: with neurologic complications Diabetes mellitus complication detail: with polyneuropathy Qualified Code(s): E11.42 - Type 2 diabetes mellitus with diabetic polyneuropathy (6) Chronic anticoagulation: CODE(S): Z79.01 - technician terminal and repeater (current) use of anticoagulants (7) History of deep vein thrombosis: CODE(S): Z86.718 - Personal history of other venous thrombosis and embolism (8) Decubitus ulcer of sacral region, stage 4: CODE(S): L89.154 - Pressure ulcer of sacral region, stage 4 (9) Decubitus ulcer of left perineal ischial region, stage 2: CODE(S): L89.322 - Pressure ulcer of left buttock, stage 2 (10) Hx of spinal surgery: CODE(S): Z98.890 - Other specified postprocedural states (11) Colostomy status: CODE(S): Z93.3 - Colostomy status (12) HTN (hypertension): CODE(S): I10 - Essential (primary) hypertension QUALIFIERS: Hypertension type: primary hypertension Qualified Code(s): I10 - Essential (primary) hypertension (13) BATOOL treated with BiPAP: CODE(S): G47.33 - Obstructive sleep apnea (adult) (pediatric) (14) Lymphedema: CODE(S): I89.0 - Lymphedema, not elsewhere classified (15) Decubitus ulcer of right ischium, stage 3: CODE(S): L89.313 - Pressure ulcer of right buttock, stage 3 (16) Pressure ulcer of left leg, stage 3: CODE(S): L89.893 - Pressure ulcer of other site, stage 3 PLAN: Plan Debridement performed today in clinic as annotated above. At home wound-care instructions: The patient's ulcers will be washed with antibacterial soap and water and then will use Dakins wet to dry to wound bed and cover with gauze and superabsorber for heavy drainage twice daily. Keep dressing clean and dry. Left ischium will be treated with Aquacel Extra changed twice daily. Left heel and right lateral foot will be padded with heel protectors daily. Left lateral calf will be treated with Aquacel Extra and covered with ABD daily. Off-loading: The patient was instructed to avoid pressure and friction on the affected areas. Reposition every 2 hours at minimum. Avoid prolonged standing and/or dangling of legs. When seated, feet should be elevated at chest level. Continue air mattress. Order has been written for alternating pressure air mattress to assist in offloading pressure to his ulcers. He now has alternating pressure air mattress to assist in offloading. Diet: Patient encouraged to increase protein intake while taking caution to avoid high carbohydrate and/or sugar intake. He is getting [place] protein supplement at [facility]. Labs/cultures/imaging: Will obtain previous imaging results. Most recent A1C 7.9% on 07/23/24. MRI today after appointment here. Wound cultures were positive and he is on Flagyl for anaerobic bacteria and IV Meropenem for multiple other bacteria. Follow-up: Return in 1 week for wound care. Return sooner or report to the emergency room should symptoms worsen, or new symptoms arise. Note: [employer] speech recognition commercial management accountant software was used to create portions of this document. Sound-alike and misspelled words, as well as other commercial management accountant errors may be contained in the documentation.
== END 2025-03-15 23:59 | disposition home or self-care (01) ==
LOC: WC 09:30
PROVIDERS: PCP Family Medicine; Referring Provider Internal Medicine; Visit Provider Family Medicine
DX: L89.154 Pressure ulcer of sacral region, stage 4 (principal); L89.893 Pressure ulcer of other site, stage 3; L89.313 Pressure ulcer of right buttock, stage 3; G82.20 Paraplegia, unspecified; L89.322 Pressure ulcer of left buttock, stage 2; Z93.3 Colostomy status; E11.42 Type 2 diabetes mellitus with diabetic polyneuropathy; I10 Essential (primary) hypertension; I89.0 Lymphedema, not elsewhere classified; M54.9 Dorsalgia, unspecified; G47.33 Obstructive sleep apnea (adult) (pediatric); Z86.718 Personal history of other venous thrombosis and embolism; M79.604 Pain in right leg; G89.4 Chronic pain syndrome; R09.02 Hypoxemia; Z79.01 Long term (current) use of anticoagulants; Z86.69 Personal history of other diseases of the nervous system and sense organs; Z97.8 Presence of other specified devices; Z99.89 Dependence on other enabling machines and devices
CPT/HCPCS: 11042; 11043; 97597; 11045; 11046; 87070; 87075; 87077; 87186; 87205

== ENCOUNTER 2025-03-15 10:59 | Outpatient (CLI) | payer MEDICAID, SELFPAY ==
--- NOTE | 2025-03-15 11:02 | MRI_ITS ---
EXAM: PELVIS W/WO CONTRAST 03/15/2025 CLINICAL HISTORY: SACRAL DECUBITIS ULCER STAVE IV. TECHNIQUE: Procedure Code: [id number] Modality: MR Procedure: PELVIS W/WO CONTRAST Multiplanar and multisequence images were obtained intravenous gadolinium contrast. CONTRAST: Intravenous administration Clariscan 27 mL. COMPARISON: Abdomen and pelvis CT 10/23/2023. FINDINGS: Metallic artifact from lumbosacral/bi-iliac fixation devices noted, limiting evaluation somewhat. Evaluation is also somewhat limited by inhomogeneous fat suppression on fat suppressed images, which is somewhat problematic on postcontrast fat-suppressed images. A prominent ulcer is seen at the central to right pelvis, extending to the level of the right ischium, with probable postcontrast enhancement, concerning for the presence of posterior right ischial osteomyelitis. Although the large ulcer extends near the right sacrum, no abnormal sacral signal or postcontrast enhancement is identified. No loculated fluid collection is noted. No other area of abnormal osseous signal is seen. MRI/Pelvis W/WO Contrast IMPRESSION: Somewhat limited examination as described, but with findings concerning for pos sible posterior right ischial Osteomyelitis. Reading Location: [place] [id number]
== END 2025-03-15 23:59 | disposition home or self-care (01) ==
PROVIDERS: PCP Family Medicine; Referring Provider Family Medicine; Visit Provider Family Medicine
DX: L89.154 Pressure ulcer of sacral region, stage 4 (principal); L89.893 Pressure ulcer of other site, stage 3; L89.313 Pressure ulcer of right buttock, stage 3; G82.20 Paraplegia, unspecified; L89.322 Pressure ulcer of left buttock, stage 2; Z93.3 Colostomy status; E11.42 Type 2 diabetes mellitus with diabetic polyneuropathy; I10 Essential (primary) hypertension; I89.0 Lymphedema, not elsewhere classified; M54.9 Dorsalgia, unspecified; G47.33 Obstructive sleep apnea (adult) (pediatric); Z86.718 Personal history of other venous thrombosis and embolism; G89.4 Chronic pain syndrome; R09.02 Hypoxemia; Z79.01 Long term (current) use of anticoagulants; Z86.69 Personal history of other diseases of the nervous system and sense organs; Z97.8 Presence of other specified devices; Z99.89 Dependence on other enabling machines and devices
CPT/HCPCS: 11042; 11043; 11046; 72197; 97597; A9575; A4216

== ENCOUNTER 2025-04-05 09:00 | Outpatient (RCR) | payer MEDICAID, SELFPAY ==
[2025-03-29 08:45] VITALS: BP 147/75; PULSE 116; RESP 20; TEMP 36
--- NOTE | 2025-03-29 15:04 | PN.PCM_ITS ---
History of Present Illness Date of Service: 03/29/25 Chief Complaint: sacral decubitus ulcer History of Wound: Jani is a pleasant 59 yo gentleman that has undergone an unfortunate series of events over the last several years which has left him paraplegic and with a sacral decubitus ulcer and residing in [facility] in [place]. He has been referred to the wound center for evaluation and treatment of his sacral ulcer. He has had a long history of degenerative disc disease of his spine and und erwent spine surgery in August 2016 initially and then again in February 2017 due to osteomyelitis and infection of hardware. He underwent further surgery for fusion in December of 2020. He fell in November of 2022 getting up from his chair and then experienced worsening pain, weakness in his legs and ultimately became paraplegic from the waist down. He underwent surgery in [place] in January 2023 at [facility] and then had several complications including pneumonia, pulmonary embolisms and a sacral ulcer that developed into a large defect after multiple surgical debridements and osteomyelitis of his sacrum while at [facility] through the first part 2023 and then attempted to come home to be cared for by his elderly mother which was not successful and he was hospitalized and discharged to [facility] where he had been residing until December 2024 when he transferred to [facility] in [place]. He has undergone many different treatments for his sacral ulcer including wound vac, silver dressings and Dakins and does have an air mattress but it is not an alternating pressure air mattress. The staff does try to offload his ulcer with wedges and pillows but it is difficult due to his chronic back pain. He is currently having the wound dressed with Dakins wet to dry and super absorber dressings twice daily. he reports being on chronic antibiotic treatment and IV treatment over the past year and states that he had MRI that showed resolution of osteomyelitis. (Records unavailable). He transferred care from [facility] to [facility] in [place] in January. Natacha Gunter returns today for evaluation and treatment of a sacral decubitus ulcer. He has been tolerating dressing changes with Dakins and super absorber dressings. He has been doing ok. He missed last week's appointment due to being hospitalized for pneumonia. He denies any increase in drainage or odor. Tolerating dressing changes and they are being done twice daily at [facility]. He continues to have heavy drainage. Wound cultures were positive for multiple bacteria. He was placed on Meropenem and Flagyl but unsure how much of treatment he received due to transfer to hospital during treatment. Had MRI for sacral ulcer and it show possible osteomyelitis right ischium. Denies fever, chills, erythema. Objective Data Objective Data Vital Signs: Vital Signs Temp Pulse Resp BP O2 Del Method O2 Flow Rate 96.8 F L 116 H 20 H 147/75 H Nasal Cannula 5 03/29/25 08:45 03/29/25 08:45 03/29/25 08:45 03/29/25 08:45 03/29/25 08:45 03/29/25 08:45 Oxygen Flow Rate (L/min) 5 Oxygen Delivery Method Nasal Cannula Lab / Micro Data Micro: Microbiology 03/29/25 09:42 Wound - Ischium Gram Stain - Final 03/29/25 09:36 Wound - Sacral Gram Stain - Final Physical Exam Const alert, oriented x3, no apparent distress and well nourished Constitutional Narrative: Morbidly obese, middle-aged, white male, sitting up in bed, appears comfortable and nontoxic General Appearance: cooperative and comfortable Nutritional Appearance: morbidly obese HEENT head/scalp atraumatic and moist oral mucous membranes Resp normal respiratory effort, no retractions, no use of accessory muscles and clear to auscultation bilaterally Resp Narrative: Distant due to body habitus Cardio regular rate, regular rhythm, S1 normal heart sound, S2 normal heart sound, no murmurs, no rub, no gallops and no clicks GI normal to inspection, nondistended, normoactive bowel sounds, soft to palpation and non-tender GI Narrative: colostomy present Extremity Extremity Narrative: Chronic bilateral lower extremity edema due to history of paraplegia and lack of movement, no cyanosis or clubbing General Extremity: edema bilateral lower extremity Details: moderate Skin Wounds: wounds noted Wound Narrative: as noted in clinical panel - large sacral ulcer and right ischial ulcer, no visible bone, shearing injury of left ischial area, area is irregular with fringe like skin in areas from repetitive shearing and pressure but no bleeding, left lateral LE ulcer with minimal slough prior to debridement Right ischial ulcer has areas of necrotic tissue prior to debridement Neuro oriented x3, CN's II-XII intact bilaterally, No moves all extremities, No no focal motor deficits and No no sensory deficits noted Neuro Narrative: Bilateral lower extremity flaccidity due to history of L1 injury Speech: speech normal Psych affect normal Psych Narrative: Very pleasant, interacts appropriately Debridement Note Debridement Note Wound debrided: left ischium Laterality: Left No debridement was completed: No debridement was completed today (healed) Post-Debridement Measurements and Additional Note: Post-Debridement Measurements/Treatment - Nurse 1 - General Ulcer Assessment Start: 03/29/25 08:45 Freq: Status: Active Protocol: ELENA Activity Type Activity Date Activity User E-sign Co-sign Detail Recorded Client Recorded Date Recorded By Document 03/29/25 08:45 TS [id number] 03/29/25 09:06 TS 03/29/25 08:45 WC - Today's Visit Information Type of service Follow-up Visit (Physician/GAS TENDER ) Arrival Mode Wheelchair Transfer Assistance Kelli Lift Patient Identification Verified (Name & Yes ) Patient Requires Transmission-Based No Precautions Safety Precautions Fall Prevention Vital Signs Temperature (97.8 F-99.1 F) 96.8 F L Temperature Source Temporal Pulse Rate (60-100) 116 H Pulse Location Monitor Respiratory Rate (12-18) 20 H Respiratory rate source Observation Oxygen Delivery Method Nasal Cannula O2 L/MIN (L/min) 5 Blood Pressure (90/60-120/80) 147/75 H Blood Pressure Mean (mm Hg) 99 Source Monitor Position Sitting Blood Pressure Location Left Arm History Since Last Visit- (Skip if this is Patient's initial visit) Have you changed medications since your No last visit? Any new allergies or adverse reactions No Had a fall/change in ADL's that may No increase risk of falls Signs or symptoms of abuse and/or No neglect since last visit Have you been in the hospital since your Yes last visit? Has dressing in place as prescribed Yes Has compression in place as prescribed Yes Has offloadiing in place as prescribed N/A Experienced any changes in pain level or No management Left Footwear No Footwear Right Footwear No Footwear Pain Scale: 0-10 Numeric Is Patient Pain Free? Yes [facility] Nurse 1 - General Ulcer Measurement Start: 03/29/25 08:45 Freq: Status: Active Protocol: Activity Type Activity Date Activity User E-sign Co-sign Detail Recorded Client Recorded Date Recorded By Document 03/29/25 08:45 [id number] 03/29/25 09:06 TS 11/14/25 08:45 Wound Center Nurse 1 #15 LEFT LATERAL LE -Combined with other wound No -Current Size (cm) - Length 2.5 -Current Size (cm) - Width 0.4 -Current Size (cm) - Depth 0.1 -Total Square Cm 1.00 -Date of Last Picture (Recall this 03/29/25 field) -Photo Taken Yes -Tunneling No -Undermining/Tunneling No -Circular Undermining No -Exudate Amt Small -Exudate Type Sanguineous -Granulation Amt Medium (34-66%) -Granulation Quality [place],Red -Slough/Fibrin No -Structure Exposed None/Limited to Skin Breakdown -Texture (Trish-wound Skin Appearance) Assessed, Localized Edema -Moisture (Trish-wound Skin Appearance) Assessed -Color (Trish-wound Skin Appearance) Assessed -Temperature (Trish-wound Skin No Abnormality Appearance) (Pt Warm) -Ulcer Cleansing Soap and Water -Foul Odor after Cleansing No -Anesthetic Used 4% Lidocaine Solution 3. R ischium -Combined with other wound No -Current Size (cm) - Length 7.5 -Current Size (cm) - Width 3 -Current Size (cm) - Depth 3.3 -Total Square Cm 22.5 -Date of Last Picture (Recall this 03/29/25 field) -Photo Taken Yes -Tunneling No -Undermining/Tunneling Yes -Undermining/Tunneling Starts (O'clock 12 ) -Undermining/Tunneling Ends (O'clock) 4 -Maximum Distance (cm) 3.5 -Circular Undermining No -Exudate Amt Medium -Exudate Type Serosanguineous -Wound Margin Distinct, Outline Attached -Granulation Amt Medium (34-66%) -Granulation Quality [place],Red -Slough/Fibrin Yes -Necrosis Amt Medium (34-66%) -Necrotic Tissue Type Adherent Slough -Structure Exposed None/Limited to Skin Breakdown -Texture (Trish-wound Skin Appearance) Assessed -Moisture (Trish-wound Skin Appearance) Assessed -Color (Trish-wound Skin Appearance) Assessed -Temperature (Trish-wound Skin No Abnormality Appearance) (Pt Warm) -Ulcer Cleansing Soap and Water -Foul Odor after Cleansing No -Anesthetic Used 4% Lidocaine Solution 2. L ischium -Combined with other wound No -Current Size (cm) - Length 0.1 -Current Size (cm) - Width 0.1 -Current Size (cm) - Depth 0.1 -Total Square Cm 0.01 -Date of Last Picture (Recall this 03/29/25 field) -Photo Taken Yes -Tunneling No -Undermining/Tunneling No -Circular Undermining No -Exudate Amt Small -Exudate Type Serosanguineous -Granulation Amt Medium (34-66%) -Granulation Quality [place],Red -Slough/Fibrin No -Necrosis Amt Small (1-33%) -Necrotic Tissue Type Adherent Slough -Texture (Trish-wound Skin Appearance) Assessed -Moisture (Trish-wound Skin Appearance) Assessed -Color (Trish-wound Skin Appearance) Assessed -Temperature (Trish-wound Skin No Abnormality Appearance) (Pt Warm) -Ulcer Cleansing Soap and Water -Foul Odor after Cleansing No -Anesthetic Used 4% Lidocaine Solution *1. coccyx -Combined with other wound No -Current Size (cm) - Length 9.5 -Current Size (cm) - Width 13.5 -Current Size (cm) - Depth 2.4 -Total Square Cm 128.25 -Date of Last Picture (Recall this 03/29/25 field) -Photo Taken Yes -Tunneling No -Undermining/Tunneling No -Circular Undermining No -Exudate Amt Large -Exudate Type Serosanguineous -Wound Margin Distinct, Outline Attached -Granulation Amt Medium (34-66%) -Granulation Quality [place],Red -Slough/Fibrin Yes -Necrosis Amt Medium (34-66%) -Structure Exposed None/Limited to Skin Breakdown -Texture (Trish-wound Skin Appearance) Assessed -Moisture (Trish-wound Skin Appearance) Assessed -Color (Trish-wound Skin Appearance) Assessed -Temperature (Trish-wound Skin No Abnormality Appearance) (Pt Warm) -Ulcer Cleansing Soap and Water -Foul Odor after Cleansing No -Anesthetic Used 4% Lidocaine Solution Lower Limb Edema Present Yes Point of measurement (cm from the medial 26.3 instep) Point of Measurement (cm from the medial 47 instep) Point of measurement (cm from the medial 27.2 instep) Point of Measurement (cm from the medial 47 instep) WC - Nurse 2 - General Ulcer CM Notes Start: 03/29/25 08:45 Freq: Status: Active Protocol: Activity Type Activity Date Activity User E-sign Co-sign Detail Recorded Client Recorded Date Recorded By Document 03/29/25 09:13 [id number] 03/29/25 09:51 03/29/25 09:13 Wound Center Nurse 2 #16 LEFT LATERAL LE SUPERIOR -Time 09:41 -Correct Patient Yes -Correct Side, Site, Position Yes -Correct Procedure Yes -Procedure Performed Yes -Type of Procedure Debridement -Clinical Debridement Subcutaneous -Tissue Removed Subcutaneous -Post Debridement (cm) - Length 1.0 -Post Debridement (cm) - Width 0.3 -Post Debridement (cm) - Depth 0.1 -Total Square (Post) (cm) 0.30 -Area of Debridement (cm) - Length 1.0 -Area of Debridement (cm) - Width 0.3 -Total Square (Area) (cm) 0.30 -Tunneling No -Undermining/Tunneling No -Circular Undermining No -Wound/Ulcer Outcome Not Healed -Ulcer Cleansing Rinsed/ Irrigated with Saline -Foul Odor after Cleansing No -Bioengineered Tissue No -Bleeding Controlled with Pressure -Treatment Response Procedure Tolerated Well -Offloading No -Debridement - Subq, 1st 20sq cm No #15 LEFT LATERAL LE -Time 09:13 -Correct Patient Yes -Correct Side, Site, Position Yes -Correct Procedure Yes -Procedure Performed Yes -Type of Procedure Debridement -Clinical Debridement Subcutaneous -Tissue Removed Subcutaneous -Post Debridement (cm) - Length 2.0 -Post Debridement (cm) - Width 0.5 -Post Debridement (cm) - Depth 0.3 -Total Square (Post) (cm) 1.00 -Area of Debridement (cm) - Length 2.0 -Area of Debridement (cm) - Width 0.5 -Total Square (Area) (cm) 1.00 -Tunneling No -Undermining/Tunneling No -Circular Undermining No -Wound/Ulcer Outcome Not Healed -Ulcer Cleansing Rinsed/ Irrigated with Saline -Foul Odor after Cleansing No -Bioengineered Tissue No -Bleeding Controlled with Pressure -Treatment Response Procedure Tolerated Well -Debridement - Subq, 1st 20sq cm Yes 3. R ischium -Time 09:13 -Correct Patient Yes -Correct Side, Site, Position Yes -Correct Procedure Yes -Procedure Performed Yes -Type of Procedure Debridement -Clinical Debridement Muscle / Fascia -Tissue Removed Muscle -Post Debridement (cm) - Length 15.0 -Post Debridement (cm) - Width 4.0 -Post Debridement (cm) - Depth 6.3 -Total Square (Post) (cm) 60.00 -Area of Debridement (cm) - Length 15.0 -Area of Debridement (cm) - Width 4.0 -Total Square (Area) (cm) 60.00 -Tunneling No -Undermining/Tunneling No -Circular Undermining No -Wound/Ulcer Outcome Not Healed -Ulcer Cleansing Rinsed/ Irrigated with Saline -Foul Odor after Cleansing No -Bioengineered Tissue No -Bleeding Controlled with Pressure -Treatment Response Procedure Tolerated Well -Offloading No -Debridement - Muscle / Fascia, 1st Yes 20sq cm -Debridement, Muscle/Fascia, ea addt'l 15 20sq cm or part thereof 2. L ischium -Time 09:13 -Correct Patient Yes -Correct Side, Site, Position Yes -Correct Procedure No -Procedure Performed No -Tunneling No -Undermining/Tunneling No -Circular Undermining No -Wound/Ulcer Outcome Healed- Epithelialized -Foul Odor after Cleansing No -Bioengineered Tissue No -Bleeding Controlled with NA *1. coccyx -Time 09:13 -Correct Patient Yes -Correct Side, Site, Position Yes -Correct Procedure Yes -Procedure Performed Yes -Type of Procedure Debridement -Clinical Debridement Muscle / Fascia -Tissue Removed Muscle -Post Debridement (cm) - Length 16.0 -Post Debridement (cm) - Width 16.0 -Post Debridement (cm) - Depth 0.1 -Total Square (Post) (cm) 256.00 -Area of Debridement (cm) - Length 16.0 -Area of Debridement (cm) - Width 16.0 -Total Square (Area) (cm) 256.00 -Tunneling Yes -Tunneling Position (O'clock) 6 -Tunneling Distance (cm) 1.0 -Undermining/Tunneling No -Circular Undermining No -Wound/Ulcer Outcome Not Healed -Ulcer Cleansing Rinsed/ Irrigated with Saline -Foul Odor after Cleansing No -Bioengineered Tissue No -Bleeding Controlled with Pressure -Treatment Response Procedure Tolerated Well -Offloading No -Debridement - Muscle / Fascia, 1st No 20sq cm Pain Scale: 0-10 Numeric Is Patient Pain Free? Yes WC - Nurse 3 - General Ulcer D/C NN Start: 03/29/25 08:45 Freq: Status: Active Protocol: Activity Type Activity Date Activity User E-sign Co-sign Detail Recorded Client Recorded Date Recorded By Document 03/29/25 10:31 DS [id number] 03/29/25 10:46 DS Edit Result 03/29/25 10:31 DS (1) [id number] 03/29/25 10:47 DS (1) 2. L ischium - Other Dressing kerlix, abd pad => abd pad 03/29/25 10:31 Wound Care Center Nurse 3 #16 LEFT LATERAL LE SUPERIOR -Primary Dressing Applied Aquacel Extra -Primary Dressing Covered/Secured with Dry Gauze & Roll Gauze, Secured with Tape -Aquacel Extra 0 #15 LEFT LATERAL LE -Primary Dressing Applied Aquacel Extra -Primary Dressing Covered/Secured with Dry Gauze & Roll Gauze, Secured with Tape -Aquacel Extra 0 3. R ischium -Primary Dressing Applied Aquacel Extra, Hysept -Other Dressing kerlix, abd pad -Primary Dressing Covered/Secured with Secured with Tape -Aquacel Extra 1 -Hysept 0 2. L ischium -Other Dressing abd pad -Primary Dressing Covered/Secured with Secured with Tape *1. coccyx -Ulcer Cleansing Rinsed/ Irrigated with Saline -Primary Dressing Applied Hysept -Other Dressing kerlix, abd pad -Primary Dressing Covered/Secured with Secured with Tape -Hysept 0 Pain Scale: 0-10 Numeric Is Patient Pain Free? Yes WC - Visit Discharge Discharge Condition Stable Ambulatory Status [facility] Type Sn[facility] Facility Other [facility] Additional Wound Wound debrided: right ischium Laterality: Right Wound Grade/Stage: Stage III Type of Debridement: Excisional debridement Anesthesia Used: 4% Lidocaine Solution Depth: Down to and including healthy tissue, in the subcutaneous layer and to muscle Percentage of wound debrided: 100 Instrument Used: #15 blade and Forceps Tissue Removed: Yellow slough, devitalized tissue Severity: Necrosis of Muscle Amount of bleeding with debridement: Mild Bleeding Controlled with: Pressure and Compression and gauze Patient tolerated procedure: Patient tolerated procedure well Additional Wound Wound debrided: coccyx Laterality: Not Applicable Wound Grade/Stage: Stage IV Type of Debridement: Excisional debridement Anesthesia Used: 4% Lidocaine Solution Depth: Down to and including healthy tissue, in the subcutaneous layer and to muscle Percentage of wound debrided: 100 Instrument Used: 7mm curette Tissue Removed: Yellow slough, devitalized tissue Severity: Necrosis of Muscle Amount of bleeding with debridement: Mild Bleeding Controlled with: Compression and gauze Patient tolerated procedure: Patient tolerated procedure well Additional Wound Wound debrided: left lateral calf Laterality: Left Type of Debridement: Excisional debridement Anesthesia Used: 4% Lidocaine Solution and 5% Lidocaine Gel Depth: Down to and including healthy tissue and in the subcutaneous layer Percentage of wound debrided: 100 Instrument Used: 5mm curette Tissue Removed: Yellow slough, devitalized tissue Severity: Fat Layer Exposed Amount of bleeding with debridement: Mild Bleeding Controlled with: Compression and gauze Patient tolerated procedure: Patient tolerated procedure well Assessment/Plan Assessment/Plan (1) Chronic pain: CODE(S): G89.29 - Other chronic pain QUALIFIERS: Chronic pain type: chronic pain syndrome Qualified Code(s): G89.4 - Chronic pain syndrome (2) Hypoxia: CODE(S): R09.02 - Hypoxemia (3) History of paraplegia: CODE(S): Z86.69 - Personal history of other diseases of the nervous system and sense organs (4) Chronic indwelling Campbell catheter: CODE(S): Z97.8 - Presence of other specified devices (5) Type 2 diabetes mellitus: CODE(S): E11.9 - Type 2 diabetes mellitus without complications QUALIFIERS: Diabetes mellitus marine oil terminal superintendent insulin use: without marine oil terminal superintendent use Diabetes mellitus complication status: with neurologic complications Diabetes mellitus complication detail: with polyneuropathy Qualified Code(s): E11.42 - Type 2 diabetes mellitus with diabetic polyneuropathy (6) Chronic anticoagulation: CODE(S): Z79.01 - assisted (current) use of anticoagulants (7) History of deep vein thrombosis: CODE(S): Z86.718 - Personal history of other venous thrombosis and embolism (8) Decubitus ulcer of sacral region, stage 4: CODE(S): L89.154 - Pressure ulcer of sacral region, stage 4 (9) Decubitus ulcer of left perineal ischial region, stage 2: CODE(S): L89.322 - Pressure ulcer of left buttock, stage 2 (10) Hx of spinal surgery: CODE(S): Z98.890 - Other specified postprocedural states (11) Colostomy status: CODE(S): Z93.3 - Colostomy status (12) HTN (hypertension): CODE(S): I10 - Essential (primary) hypertension QUALIFIERS: Hypertension type: primary hypertension Qualified Code(s): I10 - Essential (primary) hypertension (13) BATOOL treated with BiPAP: CODE(S): G47.33 - Obstructive sleep apnea (adult) (pediatric) (14) Lymphedema: CODE(S): I89.0 - Lymphedema, not elsewhere classified (15) Decubitus ulcer of right ischium, stage 3: CODE(S): L89.313 - Pressure ulcer of right buttock, stage 3 (16) Pressure ulcer of left leg, stage 3: CODE(S): L89.893 - Pressure ulcer of other site, stage 3 PLAN: Plan Debridement performed today in clinic as annotated above. At home wound-care instructions: The patient's ulcers will be washed with an tibacterial soap and water and then will use Dakins wet to dry to wound bed and cover with gauze and superabsorber for heavy drainage twice daily. Keep dressing clean and dry. Left ischium will be treated with ABD changed twice daily. Left heel and right lateral foot will be padded with heel protectors daily. Left lateral calf will be treated with Aquacel Extra and covered with ABD daily. During debridement today, necrotic tissue at the base of the right ischial ulcer was removed and a moderate amount of yellow serous drainage without odor drained from the area behind the removed tissue. There was no odor. exploration of the area probed to possibly bone. Unsure of whether the fluid was bursal fluid, seroma, or synovial fluid. Due to concern for osteomyelitis of his right ischium and the proximity of this ulcer to his lateral hip, MRI was ordered to evaluate the hip area and rule out infection of the hip joint. Off-loading: The patient was instructed to avoid pressure and friction on the affected areas. Reposition every 2 hours at minimum. Avoid prolonged standing and/or dangling of legs. When seated, feet should be elevated at chest level. Continue air mattress. Order has been written for alternating pressure air mattress to assist in offloading pressure to his ulcers. He now has alternating pressure air mattress to assist in offloading. Diet: Patient encouraged to increase protein intake while taking caution to avoid high carbohydrate and/or sugar intake. He is getting Wiliam protein supplement at [facility]. Labs/cultures/imaging: Will obtain previous imaging results. Most recent A1C 7.9% on 07/23/24. MRI showed possible osteomyelitis of right ischium. Wound cultures done today on the right ischial area and the coccyx/sacral tip. Follow-up: Return in 1 week for wound care. Return sooner or report to the emergency room should symptoms worsen, or new symptoms arise. Note: [employer] speech recognition city letter carrier software was used to create portions of this document. Sound-alike and misspelled words, as well as other city letter carrier errors may be contained in the documentation.
--- NOTE | 2025-04-01 08:41 | WC ---
PHOTO-COCCYX 03/29/25
--- NOTE | 2025-04-01 08:44 | WC ---
PHOTO-RIGHT ISCHIUM 03/29/25
--- NOTE | 2025-04-01 08:47 | WC ---
PHOTO-LEFT ISCHIUM 03/29/25
--- NOTE | 2025-04-01 08:49 | WC ---
PHOTO-LEFT LAT LE 03/29/25
[2025-04-05 08:53] VITALS: BP 139/69; PULSE 122; RESP 20; TEMP 37.1
--- NOTE | 2025-04-08 09:24 | WC ---
PHOTO-LEFT LAT SUP/LEFT LAT LE 04/05/25
--- NOTE | 2025-04-08 09:25 | WC ---
PHOTO-COCCYX 04/05/25
--- NOTE | 2025-04-08 09:26 | WC ---
PHOTO-RIGHT ISCHIUM 04/05/25
--- NOTE | 2025-04-08 09:26 | WC ---
PHOTO-LEFT ISCHIUM 04/05/25
== END 2025-04-14 23:59 | disposition home or self-care (01) ==
LOC: WC 09:00
PROVIDERS: PCP Family Medicine; Referring Provider Internal Medicine; Visit Provider Family Medicine
DX: L89.154 Pressure ulcer of sacral region, stage 4 (principal); L89.213 Pressure ulcer of right hip, stage 3; G82.20 Paraplegia, unspecified; E11.622 Type 2 diabetes mellitus with other skin ulcer; Z93.3 Colostomy status; L97.222 Non-pressure chronic ulcer of left calf with fat layer exposed; E11.42 Type 2 diabetes mellitus with diabetic polyneuropathy; I89.0 Lymphedema, not elsewhere classified; I10 Essential (primary) hypertension
CPT/HCPCS: 11042; 11043; 11046; 87070; 87075; 87077; 87186; 87205

== ENCOUNTER → 2025-04-05 | Outpatient (CLI) | payer MEDICAID, SELFPAY ==
--- NOTE | 2025-04-05 06:51 | MRI_ITS ---
PROCEDURE: LOWER EXT JOINT ONLY W/WO CONT; PELVIS W/WO CONTRAST 04/05/2025 REASON FOR EXAM: Right ISCHIAL ULCER, OSTEOMYELITIS TECHNIQUE: Procedure Code: [id number]; [id number] Modality: MR Procedure: MRI pelvis without and with contrast and MRI right hip without and with contrast (combined dictation). CONTRAST: [facility]isc[facility] VOLUME: 27 mL intravenous. COMPARISON: Pelvis MRI of 03/15/2025. FINDINGS: Metallic artifact from a right hip prosthesis is again seen. This also results in inhomogeneous fat suppression on fat suppressed images. Similar metallic artifact is seen in the visualized portions of the lumbosacral spine. The posterior ulcer at the level of the posterior right ischium is again seen, somewhat less conspicuous than on the prior study. Mild edema and mild postcontrast enhancement of the posterior ischium, beneath the ulcer, is somewhat less conspicuous than on the prior study. No new area of abnormal osseous signal is seen. Mild left hip degenerative changes are seen. No evidence of femoral head osteonecrosis on the left. No abscess formation is noted. Within the pelvis, no free fluid is seen. No inguinal or pelvic adenopathy is noted. MRI/Pelvis W/WO Contrast IMPRESSION: 1. Interval decrease in conspicuity of the posterior right ischial edema and po stcontrast enhancement. 2. Decreased prominence of the posterior right pelvic ulcer of the level of the ischium. Reading Location: [address]
--- NOTE | 2025-04-05 06:51 | MRI_ITS ---
PROCEDURE: LOWER EXT JOINT ONLY W/WO CONT; PELVIS W/WO CONTRAST 04/05/2025 REASON FOR EXAM: Right ISCHIAL ULCER, OSTEOMYELITIS TECHNIQUE: Procedure Code: [id number]; MRIPELWW Modality: MR Procedure: MRI pelvis without and with contrast and MRI right hip without and with contrast (combined dictation). CONTRAST: Clariscan VOLUME: 27 mL intravenous. COMPARISON: Pelvis MRI of 03/15/2025. FINDINGS: Metallic artifact from a right hip prosthesis is again seen. This also results in inhomogeneous fat suppression on fat suppressed images. Similar metallic artifact is seen in the visualized portions of the lumbosacral spine. The posterior ulcer at the level of the posterior right ischium is again seen, somewhat less conspicuous than on the prior study. Mild edema and mild postcontrast enhancement of the posterior ischium, beneath the ulcer, is somewhat less conspicuous than on the prior study. No new area of abnormal osseous signal is seen. Mild left hip degenerative changes are seen. No evidence of femoral head osteonecrosis on the left. No abscess formation is noted. Within the pelvis, no free fluid is seen. No inguinal or pelvic adenopathy is noted. MRI/Lower Ext Joint Only W/WO Cont IMPRESSION: 1. Interval decrease in conspicuity of the posterior right ischial edema and po stcontrast enhancement. 2. Decreased prominence of the posterior right pelvic ulcer of the level of the ischium. Reading Location: [address]
--- NOTE | 2025-04-05 14:12 | PCM.WC.PN ---
History of Present Illness Date of Service: 04/05/25 Chief Complaint: sacral decubitus ulcer History of Wound: Jani is a pleasant 59 yo gentleman that has undergone an unfortunate series of events over the last several years which has left him paraplegic and with a sacral decubitus ulcer and residing in [facility] in [place]. He has been referred to the wound center for evaluation and treatment of his sacral ulcer. He has had a long history of degenerative disc disease of his spine and underwent spine surgery in August 2016 initially and then again in February 2017 due to osteomyelitis and infection of hardware. He underwent further surgery for fusion in December of 2020. He fell in November of 2022 getting up from his chair and then experienced worsening pain, weakness in his legs and ultimately became paraplegic from the waist down. He underwent surgery in [place] in January 2023 at [facility] and then had several complications including pneumonia, pulmonary embolisms and a sacral ulcer that developed into a large defect after multiple surgical debridements and osteomyelitis of his sacrum while at [facility] through the first part 2023 and then attempted to come home to be cared for by his elderly mother which was not successful and he was hospitalized and discharged to [facility] where he had been residing until December 2024 when he transferred to [facility] in [place]. He has undergone many different treatments for his sacral ulcer including wound vac, silver dressings and Dakins and does have an air mattress but it is not an alternating pressure air mattress. The staff does try to offload his ulcer with wedges and pillows but it is difficult due to his chronic back pain. He is currently having the wound dressed with Dakins wet to dry and super absorber dressings twice daily. he reports being on chronic antibiotic treatment and IV treatment over the past year and states that he had MRI that showed resolution of osteomyelitis. (Records unavailable). He transferred care from [facility] to [facility] in [place] in January. Subjective Natacha Gunter returns today for evaluation and treatment of a sacral decubitus ulcer. He has been tolerating dressing changes with Dakins and super absorber dressings. He has been doing ok. He denies any increase in drainage or odor. Tolerating dressing changes and they are being done twice daily at [facility]. He continues to have heavy drainage. Wound cultures were positive for multiple bacteria. He was placed on Meropenem and Flagyl but unsure how much of treatment he received due to transfer to hospital during treatment. Repeat wound cultures were done on 03/29/25 and were positive for multiple bacteria. He underwent MRI of his right hip joint this morning before his wound care visit. Had MRI for sacral ulcer and it show possible osteomyelitis right ischium. Denies fever, chills, erythema. Physical Exam Const alert, oriented x3, no apparent distress and well nourished Constitutional Narrative: Morbidly obese, middle-aged, white male, sitting up in bed, appears comfortable and nontoxic General Appearance: cooperative and comfortable Nutritional Appearance: morbidly obese HEENT head/scalp atraumatic and moist oral mucous membranes Resp normal respiratory effort, no retractions, no use of accessory muscles and clear to auscultation bilaterally Resp Narrative: Distant due to body habitus Cardio regular rate, regular rhythm, S1 normal heart sound, S2 normal heart sound, no murmurs, no rub, no gallops and no clicks GI normal to inspection, nondistended, normoactive bowel sounds, soft to palpation and non-tender GI Narrative: colostomy present Extremity Extremity Narrative: Chronic bilateral lower extremity edema due to history of paraplegia and lack of movement, no cyanosis or clubbing General Extremity: edema bilateral lower extremity Details: moderate Skin Wounds: wounds noted Wound Narrative: as noted in clinical panel - large sacral ulcer with no significant depth and ink healthy granulation tissue throughout, right ischial ulcer with no visible bone but palpating to bone with probe, approx. 12 cm , shearing injury of left ischial area, area is irregular with fringe like skin in areas from repetitive shearing and pressure and mild bleeding today, left lateral LE ulcer with minimal slough prior to debridement Right ischial ulcer has areas of necrotic tissue prior to debridement at base and there was significant bleeding which a single simple interrupted suture was used to provide hemostasis Neuro oriented x3, CN's II-XII intact bilaterally, No moves all extremities, No no focal motor deficits and No no sensory deficits noted Neuro Narrative: Bilateral lower extremity flaccidity due to history of L1 injury Speech: speech normal Psych affect normal Psych Narrative: Very pleasant, interacts appropriately Debridement Note Debridement Note Wound debrided: left ischium Laterality: Left Type of Debridement: Selective debridement Depth: in the subcutaneous layer Instrument Used: 5mm curette Tissue Removed: Yellow slough, devitalized tissue Severity: Fat Layer Exposed Amount of bleeding with debridement: Mild Bleeding Controlled with: Compression and gauze Post-Debridement Measurements and Additional Note: Post-Debridement Measurements/Treatment - Nurse 1 - General Ulcer Assessment Start: 03/29/25 08:45 Freq: Status: Active Protocol: ELENA Activity Type Activity Date Activity User E-sign Co-sign Detail Recorded Client Recorded Date Recorded By Document 03/29/25 08:45 [id number] 03/29/25 09:06 03/29/25 08:45 WC - Today's Visit Information Type of service Follow-up Visit (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/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 ) Arrival Mode Wheelchair Transfer Assistance Kelli Lift Patient Identification Verified (Name & Yes ) Patient Requires Transmission-Based No Precautions Safety Precautions Fall Prevention Vital Signs Temperature (97.8 F-99.1 F) 96.8 F L Temperature Source Temporal Pulse Rate (60-100) 116 H Pulse Location Monitor Respiratory Rate (12-18) 20 H Respiratory rate source Observation Oxygen Delivery Method Nasal Cannula O2 L/MIN (L/min) 5 Blood Pressure (90/60-120/80) 147/75 H Blood Pressure Mean (mm Hg) 99 Source Monitor Position Sitting Blood Pressure Location Left Arm History Since Last Visit- (Skip if this is Patient's initial visit) Have you changed medications since your No last visit? Any new allergies or adverse reactions No Had a fall/change in ADL's that may No increase risk of falls Signs or symptoms of abuse and/or No neglect since last visit Have you been in the hospital since your Yes last visit? Has dressing in place as prescribed Yes Has compression in place as prescribed Yes Has offloadiing in place as prescribed N/A Experienced any changes in pain level or No management Left Footwear No Footwear Right Footwear No Footwear Pain Scale: 0-10 Numeric Is Patient Pain Free? Yes - Nurse 1 - General Ulcer Measurement Start: 03/29/25 08:45 Freq: Status: Active Protocol: Activity Type Activity Date Activity User E-sign Co-sign Detail Recorded Client Recorded Date Recorded By Document 03/29/25 08:45 TS [id number] 03/29/25 09:06 03/29/25 08:45 Wound Center Nurse 1 #15 LEFT LATERAL LE -Combined with other wound No -Current Size (cm) - Length 2.5 -Current Size (cm) - Width 0.4 -Current Size (cm) - Depth 0.1 -Total Square Cm 1.00 -Date of Last Picture (Recall this 03/29/25 field) -Photo Taken Yes -Tunneling No -Undermining/Tunneling No -Circular Undermining No -Exudate Amt Small -Exudate Type Sanguineous -Granulation Amt Medium (34-66%) -Granulation Quality [place],Red -Slough/Fibrin No -Structure Exposed None/Limited to Skin Breakdown -Texture (Trish-wound Skin Appearance) Assessed, Localized Edema -Moisture (Trish-wound Skin Appearance) Assessed -Color (Trish-wound Skin Appearance) Assessed -Temperature (Trish-wound Skin No Abnormality Appearance) (Pt Warm) -Ulcer Cleansing Soap and Water -Foul Odor after Cleansing No -Anesthetic Used 4% Lidocaine Solution 3. R ischium -Combined with other wound No -Current Size (cm) - Length 7.5 -Current Size (cm) - Width 3 -Current Size (cm) - Depth 3.3 -Total Square Cm 22.5 -Date of Last Picture (Recall this 03/29/25 field) -Photo Taken Yes -Tunneling No -Undermining/Tunneling Yes -Undermining/Tunneling Starts (O'clock 12 ) -Undermining/Tunneling Ends (O'clock) 4 -Maximum Distance (cm) 3.5 -Circular Undermining No -Exudate Amt Medium -Exudate Type Serosanguineous -Wound Margin Distinct, Outline Attached -Granulation Amt Medium (34-66%) -Granulation Quality [place],Red -Slough/Fibrin Yes -Necrosis Amt Medium (34-66%) -Necrotic Tissue Type Adherent Slough -Structure Exposed None/Limited to Skin Breakdown -Texture (Trish-wound Skin Appearance) Assessed -Moisture (Trish-wound Skin Appearance) Assessed -Color (Trish-wound Skin Appearance) Assessed -Temperature (Trish-wound Skin No Abnormality Appearance) (Pt Warm) -Ulcer Cleansing Soap and Water -Foul Odor after Cleansing No -Anesthetic Used 4% Lidocaine Solution 2. L ischium -Combined with other wound No -Current Size (cm) - Length 0.1 -Current Size (cm) - Width 0.1 -Current Size (cm) - Depth 0.1 -Total Square Cm 0.01 -Date of Last Picture (Recall this 03/29/25 field) -Photo Taken Yes -Tunneling No -Undermining/Tunneling No -Circular Undermining No -Exudate Amt Small -Exudate Type Serosanguineous -Granulation Amt Medium (34-66%) -Granulation Quality [place],Red -Slough/Fibrin No -Necrosis Amt Small (1-33%) -Necrotic Tissue Type Adherent Slough -Texture (Trish-wound Skin Appearance) Assessed -Moisture (Trish-wound Skin Appearance) Assessed -Color (Trish-wound Skin Appearance) Assessed -Temperature (Trish-wound Skin No Abnormality Appearance) (Pt Warm) -Ulcer Cleansing Soap and Water -Foul Odor after Cleansing No -Anesthetic Used 4% Lidocaine Solution *1. coccyx -Combined with other wound No -Current Size (cm) - Length 9.5 -Current Size (cm) - Width 13.5 -Current Size (cm) - Depth 2.4 -Total Square Cm 128.25 -Date of Last Picture (Recall this 03/29/25 field) -Photo Taken Yes -Tunneling No -Undermining/Tunneling No -Circular Undermining No -Exudate Amt Large -Exudate Type Serosanguineous -Wound Margin Distinct, Outline Attached -Granulation Amt Medium (34-66%) -Granulation Quality [place],Red -Slough/Fibrin Yes -Necrosis Amt Medium (34-66%) -Structure Exposed None/Limited to Skin Breakdown -Texture (Trish-wound Skin Appearance) Assessed -Moisture (Trish-wound Skin Appearance) Assessed -Color (Trish-wound Skin Appearance) Assessed -Temperature (Trish-wound Skin No Abnormality Appearance) (Pt Warm) -Ulcer Cleansing Soap and Water -Foul Odor after Cleansing No -Anesthetic Used 4% Lidocaine Solution Lower Limb Edema Present Yes Point of measurement (cm from the medial 26.3 instep) Point of Measurement (cm from the medial 47 instep) Point of measurement (cm from the medial 27.2 instep) Point of Measurement (cm from the medial 47 instep) WC - Nurse 2 - General Ulcer CM Notes Start: 03/29/25 08:45 Freq: Status: Active Protocol: Activity Type Activity Date Activity User E-sign Co-sign Detail Recorded Client Recorded Date Recorded By Document 03/29/25 09:13 [id number] 03/29/25 09:51 GM 03/29/25 09:13 Wound Center Nurse 2 #16 LEFT LATERAL LE SUPERIOR -Time 09:41 -Correct Patient Yes -Correct Side, Site, Position Yes -Correct Procedure Yes -Procedure Performed Yes -Type of Procedure Debridement -Clinical Debridement Subcutaneous -Tissue Removed Subcutaneous -Post Debridement (cm) - Length 1.0 -Post Debridement (cm) - Width 0.3 -Post Debridement (cm) - Depth 0.1 -Total Square (Post) (cm) 0.30 -Area of Debridement (cm) - Length 1.0 -Area of Debridement (cm) - Width 0.3 -Total Square (Area) (cm) 0.30 -Tunneling No -Undermining/Tunneling No -Circular Undermining No -Wound/Ulcer Outcome Not Healed -Ulcer Cleansing Rinsed/ Irrigated with Saline -Foul Odor after Cleansing No -Bioengineered Tissue No -Bleeding Controlled with Pressure -Treatment Response Procedure Tolerated Well -Offloading No -Debridement - Subq, 1st 20sq cm No #15 LEFT LATERAL LE -Time 09:13 -Correct Patient Yes -Correct Side, Site, Position Yes -Correct Procedure Yes -Procedure Performed Yes -Type of Procedure Debridement -Clinical Debridement Subcutaneous -Tissue Removed Subcutaneous -Post Debridement (cm) - Length 2.0 -Post Debridement (cm) - Width 0.5 -Post Debridement (cm) - Depth 0.3 -Total Square (Post) (cm) 1.00 -Area of Debridement (cm) - Length 2.0 -Area of Debridement (cm) - Width 0.5 -Total Square (Area) (cm) 1.00 -Tunneling No -Undermining/Tunneling No -Circular Undermining No -Wound/Ulcer Outcome Not Healed -Ulcer Cleansing Rinsed/ Irrigated with Saline -Foul Odor after Cleansing No -Bioengineered Tissue No -Bleeding Controlled with Pressure -Treatment Response Procedure Tolerated Well -Debridement - Subq, 1st 20sq cm Yes 3. R ischium -Time 09:13 -Correct Patient Yes -Correct Side, Site, Position Yes -Correct Procedure Yes -Procedure Performed Yes -Type of Procedure Debridement -Clinical Debridement Muscle / Fascia -Tissue Removed Muscle -Post Debridement (cm) - Length 15.0 -Post Debridement (cm) - Width 4.0 -Post Debridement (cm) - Depth 6.3 -Total Square (Post) (cm) 60.00 -Area of Debridement (cm) - Length 15.0 -Area of Debridement (cm) - Width 4.0 -Total Square (Area) (cm) 60.00 -Tunneling No -Undermining/Tunneling No -Circular Undermining No -Wound/Ulcer Outcome Not Healed -Ulcer Cleansing Rinsed/ Irrigated with Saline -Foul Odor after Cleansing No -Bioengineered Tissue No -Bleeding Controlled with Pressure -Treatment Response Procedure Tolerated Well -Offloading No -Debridement - Muscle / Fascia, 1st Yes 20sq cm -Debridement, Muscle/Fascia, ea addt'l 15 20sq cm or part thereof 2. L ischium -Time 09:13 -Correct Patient Yes -Correct Side, Site, Position Yes -Correct Procedure No -Procedure Performed No -Tunneling No -Undermining/Tunneling No -Circular Undermining No -Wound/Ulcer Outcome Healed- Epithelialized -Foul Odor after Cleansing No -Bioengineered Tissue No -Bleeding Controlled with NA *1. coccyx -Time 09:13 -Correct Patient Yes -Correct Side, Site, Position Yes -Correct Procedure Yes -Procedure Performed Yes -Type of Procedure Debridement -Clinical Debridement Muscle / Fascia -Tissue Removed Muscle -Post Debridement (cm) - Length 16.0 -Post Debridement (cm) - Width 16.0 -Post Debridement (cm) - Depth 0.1 -Total Square (Post) (cm) 256.00 -Area of Debridement (cm) - Length 16.0 -Area of Debridement (cm) - Width 16.0 -Total Square (Area) (cm) 256.00 -Tunneling Yes -Tunneling Position (O'clock) 6 -Tunneling Distance (cm) 1.0 -Undermining/Tunneling No -Circular Undermining No -Wound/Ulcer Outcome Not Healed -Ulcer Cleansing Rinsed/ Irrigated with Saline -Foul Odor after Cleansing No -Bioengineered Tissue No -Bleeding Controlled with Pressure -Treatment Response Procedure Tolerated Well -Offloading No -Debridement - Muscle / Fascia, 1st No 20sq cm Pain Scale: 0-10 Numeric Is Patient Pain Free? Yes WC - Nurse 3 - General Ulcer D/C NN Start: 03/29/25 08:45 Freq: Status: Active Protocol: Activity Type Activity Date Activity User E-sign Co-sign Detail Recorded Client Recorded Date Recorded By Document 03/29/25 10:31 DS [id number] 03/29/25 10:46 DS Edit Result 03/29/25 10:31 DS (1) [id number] 03/29/25 10:47 DS (1) 2. L ischium - Other Dressing kerlix, abd pad => abd pad 03/29/25 10:31 Wound Care Center Nurse 3 #16 LEFT LATERAL LE SUPERIOR -Primary Dressing Applied Aquacel Extra -Primary Dressing Covered/Secured with Dry Gauze & Roll Gauze, Secured with Tape -Aquacel Extra 0 #15 LEFT LATERAL LE -Primary Dressing Applied Aquacel Extra -Primary Dressing Covered/Secured with Dry Gauze & Roll Gauze, Secured with Tape -Aquacel Extra 0 3. R ischium -Primary Dressing Applied Aquacel Extra, Hysept -Other Dressing kerlix, abd pad -Primary Dressing Covered/Secured with Secured with Tape -Aquacel Extra 1 -Hysept 0 2. L ischium -Other Dressing abd pad -Primary Dressing Covered/Secured with Secured with Tape *1. coccyx -Ulcer Cleansing Rinsed/ Irrigated with Saline -Primary Dressing Applied Hysept -Other Dressing kerlix, abd pad -Primary Dressing Covered/Secured with Secured with Tape -Hysept 0 Pain Scale: 0-10 Numeric Is Patient Pain Free? Yes WC - Visit Discharge Discharge Condition Stable Ambulatory Status [facility] Facility Type Assisted Facility [facility] Additional Wound Wound debrided: right ischium Laterality: Right Wound Grade/Stage: Stage IV Type of Debridement: Excisional debridement Anesthesia Used: 4% Lidocaine Solution Depth: Down to and including healthy tissue, in the subcutaneous layer and to muscle Percentage of wound debrided: 100 Instrument Used: #15 blade and Forceps Tissue Removed: Yellow slough, devitalized tissue Severity: Necrosis of Muscle Amount of bleeding with debridement: Mild Bleeding Controlled with: Pressure, Compression and gauze and - (single simple interrupted suture using 2-0 prolene) Patient tolerated procedure: Patient tolerated procedure well Additional Wound Wound debrided: coccyx Laterality: Not Applicable Wound Grade/Stage: Stage IV Type of Debridement: Excisional debridement Anesthesia Used: 4% Lidocaine Solution Depth: Down to and including healthy tissue, in the subcutaneous layer and to muscle Percentage of wound debrided: 100 Instrument Used: 5mm curette Tissue Removed: Yellow slough, devitalized tissue Severity: Necrosis of Muscle Amount of bleeding with debridement: Mild Bleeding Controlled with: Compression and gauze Patient tolerated procedure: Patient tolerated procedure well Additional Wound Wound debrided: left lateral calf Laterality: Left Type of Debridement: Excisional debridement Anesthesia Used: 4% Lidocaine Solution and 5% Lidocaine Gel Depth: Down to and including healthy tissue and in the subcutaneous layer Percentage of wound debrided: 100 Instrument Used: 5mm curette Tissue Removed: Yellow slough, devitalized tissue Severity: Fat Layer Exposed Amount of bleeding with debridement: Mild Bleeding Controlled with: Compression and gauze Patient tolerated procedure: Patient tolerated procedure well Assessment/Plan Assessment/Plan (1) Chronic pain: CODE(S): G89.29 - Other chronic pain QUALIFIERS: Chronic pain type: chronic pain syndrome Qualified Code(s): G89.4 - Chronic pain syndrome (2) Hypoxia: CODE(S): R09.02 - Hypoxemia (3) History of paraplegia: CODE(S): Z86.69 - Personal history of other diseases of the nervous system and sense organs (4) Chronic indwelling Campbell catheter: CODE(S): Z97.8 - Presence of other specified devices (5) Type 2 diabetes mellitus: CODE(S): E11.9 - Type 2 diabetes mellitus without complications QUALIFIERS: Diabetes mellitus halfway insulin use: without halfway use Diabetes mellitus complication status: with neurologic complications Diabetes mellitus complication detail: with polyneuropathy Qualified Code(s): E11.42 - Type 2 diabetes mellitus with diabetic polyneuropathy (6) Chronic anticoagulation: 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(S): 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 (7) History of deep vein thrombosis: CODE(S): Z86.718 - Personal history of other venous thrombosis and embolism (8) Decubitus ulcer of sacral region, stage 4: CODE(S): L89.154 - Pressure ulcer of sacral region, stage 4 (9) Decubitus ulcer of left perineal ischial region, stage 2: CODE(S): L89.322 - Pressure ulcer of left buttock, stage 2 (10) Hx of spinal surgery: CODE(S): Z98.890 - Other specified postprocedural states (11) Colostomy status: CODE(S): Z93.3 - Colostomy status (12) HTN (hypertension): CODE(S): I10 - Essential (primary) hypertension QUALIFIERS: Hypertension type: primary hypertension Qualified Code(s): I10 - Essential (primary) hypertension (13) BATOOL treated with BiPAP: CODE(S): G47.33 - Obstructive sleep apnea (adult) (pediatric) (14) Lymphedema: CODE(S): I89.0 - Lymphedema, not elsewhere classified (15) Decubitus ulcer of right ischium, stage 3: CODE(S): L89.313 - Pressure ulcer of right buttock, stage 3 (16) Pressure ulcer of left leg, stage 3: CODE(S): L89.893 - Pressure ulcer of other site, stage 3 PLAN: Plan Debridement performed today in clinic as annotated above. At home wound-care instructions: The patient's ulcers will be washed with antibacterial soap and water and then will use Dakins wet to dry to wound bed and cover with gauze and superabsorber for heavy drainage twice daily. Keep dressing clean and dry. Left ischium will be treated with Auacel Extra and ABD changed twice daily. Left heel and right lateral foot will be padded with heel protectors daily. Left lateral calf will be treated with Aquacel Extra and covered with ABD daily for moderate drainage. Tubigrips to lower legs b/l for edema. During debridement 03/29/25 of necrotic tissue at the base of the right ischial ulcer was removed and a moderate amount of yellow serous drainage without odor drained from the area behind the removed tissue. There was no odor. exploration of the area probed to possibly bone. Unsure of whether the fluid was bursal fluid, seroma, or synovial fluid. Due to concern for osteomyelitis of his right ischium and the proximity of this ulcer to his lateral hip, MRI was ordered to evaluate the hip area and rule out infection of the hip joint. MRI done this morning but results are pending. Off-loading: The patient was instructed to avoid pressure and friction on the affected areas. Reposition every 2 hours at minimum. Avoid prolonged standing and/or dangling of legs. When seated, feet should be elevated at chest level. Continue air mattress. Order has been written for alternating pressure air mattress to assist in offloading pressure to his ulcers. He now has alternating pressure air mattress to assist in offloading. Diet: Patient encouraged to increase protein intake while taking caution to avoid high carbohydrate and/or sugar intake. He is getting [place] protein supplement at [facility]. Labs/cultures/imaging: Will obtain previous imaging results. Most recent A1C 7.9% on 07/23/24. MRI showed possible osteomyelitis of right ischium. Wound cultures done today on the right ischial area and the coccyx/sacral tip. Wound cultures of right ischium and coccyx were positive for multiple bacteria and anaerobic bacteria. Imipenem and Cefdinir prescribed for 10 days. Follow-up: Return in 2 weeks for wound care. Return sooner or report to the emergency room should symptoms worsen, or new symptoms arise. Note: [employer] speech recognition therapist software was used to create portions of this document. Sound-alike and misspelled words, as well as other therapist errors may be contained in the documentation.
== END | disposition home or self-care (01) ==
PROVIDERS: PCP Family Medicine; Referring Provider Family Medicine; Visit Provider Family Medicine
DX: L89.154 Pressure ulcer of sacral region, stage 4 (principal); L89.213 Pressure ulcer of right hip, stage 3; G82.20 Paraplegia, unspecified; E11.622 Type 2 diabetes mellitus with other skin ulcer; L97.222 Non-pressure chronic ulcer of left calf with fat layer exposed; M86.9 Osteomyelitis, unspecified; E11.42 Type 2 diabetes mellitus with diabetic polyneuropathy; E11.69 Type 2 diabetes mellitus with other specified complication; I89.0 Lymphedema, not elsewhere classified; I10 Essential (primary) hypertension
CPT/HCPCS: 11042; 11043; 11046; 72197; 73723; A9575